=== PATIENT | female | born 1960 | race Caucasian/White ===

== ENCOUNTER 2018-11-22 13:18 | Emergency (ER) | payer OTHER, SELFPAY ==
--- OUTSIDE RECORDS SUMMARY | 2018-11-22 13:21 | XMS REPORT ---
:1960 [facility] Address [address] [place] [address] Dr. Larkin. [address] [place] [id number] Care Team Providers Name Role Phone Unavailable Unavailable Unavailable Problems This patient has no known problems. Allergies, Adverse Reactions, Alerts This patient has no known allergies or adverse reactions. Medications This patient has no known medications.
[2018-11-22] MEDS ORDERED: ONDANSETRON 4 MG/2 ML VIAL ONE (14:54)
[2018-11-22] MEDS ORDERED: MORPHINE 4 MG/ML SYR ONE (14:54)
[2018-11-22 15:09] LABS: Absolute Lymphocytes (CBC) 1.5 K/uL (0.7-4.9); Absolute Monocytes 0.4 K/uL (0.1-1.3); Absolute Neutrophil 4.6 K/uL (1.8-8.0); Basophils % 1.1 % (0-1.3); Eosinophils % 2.1 % (0-4.4); Hematocrit 34.8 % (36.0-45.0); MPV 7.9 fL (7.6-11.3); Monocytes % 6.3 % (3.3-12.3); RBC Red Blood Cell Count 4.08 M/uL (3.86-4.86)
--- NOTE | 2018-11-22 15:15 | ER ---
Nurse's Notes [facility] Name: Dee Maciel Age: 58 yrs Sex: Female : 1960 Arrival Date: 11/22/2018 Time: 13:23 Bed 16 Private MD: Art Pollock E Diagnosis: Dyspnea, unspecified;Unspecified cirrhosis of liver-WYNN;Type 2 diabetes mellitus;Ascites-tense;Unspecified kidney failure;Hyperkalemia Presentation: 11/22 13:27 Presenting complaint: Patient states: I usually have a paracentesis weekly but I have la1 not had one in 3 weeks because I have been in between doctors and I need some of this fluid off. Transition of care: patient was not received from another setting of care. Onset of symptoms was November 22, 2018. Risk Assessment: Do you want to hurt yourself or someone else? Patient reports no desire to harm self or others. Initial Sepsis Screen: Does the patient meet any 2 criteria? No. Patient's initial sepsis screen is negative. Does the patient have a suspected source of infection? No. Patient's initial sepsis screen is negative. Care prior to arrival: None. 13:27 Method Of Arrival: Ambulatory la1 13:27 Acuity: ASAF 3 la1 Triage Assessment: 17:44 General: Appears in no apparent distress. comfortable. General: Behavior is calm, aj1 cooperative, appropriate for age. Respiratory: the patient reports symptoms have resolved. Respiratory: Onset: The symptoms/episode began/occurred 3 WEEKS AGO. Historical: - Allergies: 13:29 No Known Allergies; la1 - PMHx: 13:29 Diabetes - NIDDM; Hypothyroidism; WYNN liver; la1 - Immunization history:: Adult Immunizations up to date. - Social history:: Smoking status: Patient/guardian denies using tobacco. - Ebola Screening: : No symptoms or risks identified at this time. - Family history:: not pertinent. Screenin:17 Abuse screen: Denies threats or abuse. Denies injuries from another. Nutritional aj1 screening: No deficits noted. Tuberculosis screening: No symptoms or risk factors identified. 17:50 Fall Risk None identified. aj1 Assessment: 14:17 General: Appears in no apparent distress. uncomfortable, Behavior is calm, cooperative, aj1 appropriate for age. Pain: Complains of pain in back and abdomen Pain currently is 4 out of 10 on a pain scale. Neuro: Level of Consciousness is awake, alert, obeys commands. Cardiovascular: Reports shortness of breath, Denies chest pain, Patient's skin is warm and dry. Edema is 3+ to left ankle, left foot, right ankle and right foot Rhythm is sinus rhythm. Respiratory: Airway is patent Respiratory effort is even, unlabored, Respiratory pattern is regular, symmetrical, Breath sounds are diminished bilaterally. GI: Abdomen is round distended, Abd is non tender X 4 quads Abd is rigid X 4 quads. Reports that she usually has a paracentesis every week but she has not been able to have one for the past 3 weeks because she doesn't have an appointment with her doctor until . : No signs and/or symptoms were reported regarding the genitourinary system. EENT: No signs and/or symptoms were reported regarding the EENT system. Derm: No signs and/or symptoms reported regarding the dermatologic system. Skin is pink, warm \T\ dry. normal. Musculoskeletal: No signs and/or symptoms reported regarding the musculoskeletal system. Circulation, motion, and sensation intact. 15:00 Reassessment: Patient is alert, oriented x 3, equal unlabored respirations, skin aa5 warm/dry/pink. Pt sitting up in bed. Bed in low position, side rails x 2, call vasquez within reach. Pt's at bedside. Pt notified of wait time for lab results. . 16:00 Reassessment: Patient appears in no apparent distress at this time. No changes from aj1 previously documented assessment. Patient and/or family updated on plan of care and expected duration. Pain level reassessed. Patient is alert, oriented x 3, equal unlabored respirations, skin warm/dry/pink. 17:00 Reassessment: Patient and/or family updated on plan of care and expected duration. Pain aj1 level reassessed. General: Appears in no apparent distress. comfortable, Behavior is calm, cooperative, appropriate for age. Pain: Denies pain. Neuro: Level of Consciousness is awake, alert, obeys commands. Cardiovascular: Patient's skin is warm and dry. Rhythm is sinus rhythm. Respiratory: Airway is patent Respiratory effort is even, unlabored, Respiratory pattern is regular, symmetrical. Derm: Skin is pink, warm \T\ dry. normal. Musculoskeletal: Circulation, motion, and sensation intact. Vital Signs: 13:29 BP 145 / 76; Pulse 85; Resp 18; Temp 98.3; Pulse Ox 98% on R/A; Weight 117.93 kg; la1 Height 5 ft. 4 in. (162.56 cm); 14:52 BP 133 / 82; Pulse 73; Resp 18 S; Pulse Ox 98% on R/A; aa5 16:00 BP 134 / 86; Pulse 75; Resp 18; Pulse Ox 97% on R/A; aj1 17:00 BP 124 / 81; Pulse 75; Resp 18; Pulse Ox 98% on R/A; aj1 13:29 Body Mass Index 44.63 (117.93 kg, 162.56 cm) la1 ED Course: 13:23 Patient arrived in ED. mr 13:24 Art Pollock MD is Private Physician. mr 13:28 Triage completed. la1 13:30 Arm band placed on right wrist. la1 13:51 Nova Morton RN is Primary Nurse. aj1 13:59 Maynor Lo MD is Attending Physician. lor 14:17 Patient has correct armband on for positive identification. Bed in low position. Call aj1 light in reach. Side rails up X 1. cafeteria monitor on. Pulse ox on. NIBP on. 14:17 No provider procedures requiring assistance completed. aj1 14:50 Initial lab(s) drawn, by me, sent to lab. Inserted saline lock: 20 gauge in right aa5 antecubital area, using aseptic technique. Blood collected. 15:[address] Lo with Naima Neely at the [facility] transfer eb Center. 15:23 connected the GI applications sales consultant for [facility] with Dr. Lo for patient transfer eb consultation. 15:[address] Anderson the retail tire sales manager applications sales consultant for [facility] with Dr. Wally whitehead for patient transfer consultation. 15:49 connected the hospitalist applications sales consultant Dr. Simmons with Dr. Lo for patient eb transfer consultation. 16:01 administrative approval given by Naima Neely RN transfer man/ pt going to 9 tower 951/ report to be called to [phone]/ Dr. Simmons. 16:18 XRAY Chest (1 view) In Process Unspecified. EDMS 17:00 Report given to ALEXI Escalante at [facility]. aj1 17:49 Patient transferred, IV remains in place. aj1 Administered Medications: 14:55 Drug: Zofran 4 mg Route: IVP; Site: right antecubital; aa5 15:03 Follow up: Response: No adverse reaction aa5 14:57 Drug: morphine 2 mg Route: IVP; Site: right antecubital; aa5 15:03 Follow up: Response: No adverse reaction aa5 16:41 Drug: Kayexalate 30 grams Route: PO; aj1 17:53 Follow up: Response: No adverse reaction aj1 Outcome: 15:14 ER care complete, transfer ordered by MD. horowitz 17:52 Transferred by ground EMS to [facility]. aj1 17:52 Condition: stable 17:52 Discharge instructions given to patient, Instructed on the need for transfer, Demonstrated understanding of instructions. 17:55 Patient left the ED. aj1 Signatures: Dispatcher [employer] Nova Clarke RN RN aj1 Maynor Lo MD MD cha Rivera, Mary mr JohanFrancisca RN RN aa5 Jhony Jaramillo RN RN Karissa Ghotra
--- NOTE | 2018-11-22 15:16 | EDPHYS ---
Physician Documentation [facility] Name: Dee Maciel Age: 58 yrs Sex: Female : 1960 Arrival Date: 11/22/2018 Time: 13:23 Bed 16 Private MD: Art Pollock E ED Physician Maynor Lo HPI: 11/22 14:41 This 58 yrs old Female presents to ER via Ambulatory with complaints of lor Breathing Difficulty, Back Pain. 14:41 The patient has shortness of breath at rest. Onset: The symptoms/episode began/occurred lor 1 week(s) ago. Duration: The symptoms are continuous, and are steadily getting worse. The patient's shortness of breath has no apparent modifying factors. Associated signs and symptoms: Pertinent positives: sob, abdominal pain. Severity of symptoms: At their worst the symptoms were moderate in the emergency department the symptoms are unchanged. The patient has experienced similar episodes in the past, multiple times. Historical: - Allergies: 13:29 No Known Allergies; la1 - PMHx: 13:29 Diabetes - NIDDM; Hypothyroidism; WYNN liver; la1 - Immunization history:: Adult Immunizations up to date. - Social history:: Smoking status: Patient/guardian denies using tobacco. - Ebola Screening: : No symptoms or risks identified at this time. - Family history:: not pertinent. ROS: 14:41 Constitutional: Negative for fever, chills, and weight loss, Eyes: Negative for injury, lor pain, redness, and discharge, ENT: Negative for injury, pain, and discharge, Neck: Negative for injury, pain, and swelling, Cardiovascular: Negative for chest pain, palpitations, and edema, Respiratory: Negative for shortness of breath, cough, wheezing, and pleuritic chest pain, Back: Negative for injury and pain, : Negative for injury, bleeding, discharge, and swelling, MS/Extremity: Negative for injury and deformity, Skin: Negative for injury, rash, and discoloration, Neuro: Negative for headache, weakness, numbness, tingling, and seizure, Psych: Negative for depression, anxiety, suicide ideation, homicidal ideation, and hallucinations, Allergy/Immunology: Negative for hives, rash, and allergies, Endocrine: Negative for neck swelling, polydipsia, polyuria, polyphagia, and marked weight changes, Hematologic/Lymphatic: Negative for swollen nodes, abnormal bleeding, and unusual bruising. 14:41 Abdomen/GI: Positive for abdominal pain, abdominal distension, of the right upper quadrant, left upper quadrant, right lower quadrant and left lower quadrant. Exam: 14:41 Constitutional: This is a well developed, well nourished patient who is awake, alert, lor and in no acute distress. Head/Face: Normocephalic, atraumatic. Eyes: Pupils equal round and reactive to light, extra-ocular motions intact. Lids and lashes normal. Conjunctiva and sclera are non-icteric and not injected. Cornea within normal limits. Periorbital areas with no swelling, redness, or edema. ENT: Nares patent. No nasal discharge, no septal abnormalities noted. Tympanic membranes are normal and external auditory canals are clear. Oropharynx with no redness, swelling, or masses, exudates, or evidence of obstruction, uvula midline. Mucous membranes moist. Neck: Trachea midline, no thyromegaly or masses palpated, and no cervical lymphadenopathy. Supple, full range of motion without nuchal rigidity, or vertebral point tenderness. No Meningismus. Chest/axilla: Normal chest wall appearance and motion. Nontender with no deformity. No lesions are appreciated. Cardiovascular: Regular rate and rhythm with a normal S1 and S2. No gallops, murmurs, or rubs. Normal PMI, no JVD. No pulse deficits. Respiratory: Lungs have equal breath sounds bilaterally, clear to auscultation and percussion. No rales, rhonchi or wheezes noted. No increased work of breathing, no retractions or nasal flaring. Back: No spinal tenderness. No costovertebral tenderness. Full range of motion. Skin: Warm, dry with normal turgor. Normal color with no rashes, no lesions, and no evidence of cellulitis. MS/ Extremity: Pulses equal, no cyanosis. Neurovascular intact. Full, normal range of motion. Neuro: Awake and alert, GCS 15, oriented to person, place, time, and situation. Cranial nerves II-XII grossly intact. Motor strength 5/5 in all extremities. Sensory grossly intact. Cerebellar exam normal. Normal gait. Psych: Awake, alert, with orientation to person, place and time. Behavior, mood, and affect are within normal limits. 14:41 Abdomen/GI: Inspection: distension, Bowel sounds: normal, Palpation: mild abdominal tenderness, in all quadrants, firm abdomen, tense ascites. Vital Signs: 13:29 BP 145 / 76; Pulse 85; Resp 18; Temp 98.3; Pulse Ox 98% on R/A; Weight 117.93 kg; la1 Height 5 ft. 4 in. (162.56 cm); 14:52 BP 133 / 82; Pulse 73; Resp 18 S; Pulse Ox 98% on R/A; aa5 16:00 BP 134 / 86; Pulse 75; Resp 18; Pulse Ox 97% on R/A; aj1 17:00 BP 124 / 81; Pulse 75; Resp 18; Pulse Ox 98% on R/A; aj1 13:29 Body Mass Index 44.63 (117.93 kg, 162.56 cm) la1 MDM: 13:59 Patient medically screened. [facility] 14:43 Data reviewed: vital signs, nurses notes, lab test result(s), EKG, radiologic studies, lor plain films. 11/22 14:38 Order name: Basic Metabolic Panel [facility] 11/22 14:38 Order name: CBC with Diff [facility] 11/22 14:38 Order name: LFT's [facility] 11/22 14:38 Order name: Magnesium [facility] 11/22 14:38 Order name: NT PRO-BNP [facility] 11/22 14:38 Order name: PT-INR [facility] 11/22 14:38 Order name: Troponin (emerg Dept Use Only) [facility] 11/22 14:38 Order name: Lipase [facility] 11/22 14:38 Order name: AMMONIA [facility] 11/22 15:13 Order name: CBC with Automated Diff; Complete Time: 15:29 EDND 11/22 15:21 Order name: Ammonia; Complete Time: 15:29 EDND 11/22 15:24 Order name: Protime (+INR); Complete Time: 15:29 EDND 11/22 15:42 Order name: Basic Metabolic Panel; Complete Time: 15:48 EDND 11/22 14:38 Order name: XRAY Chest (1 view) [facility] 11/22 14:38 Order name: EKG; Complete Time: 14:39 [facility] 11/22 14:38 Order name: Cardiac monitoring; Complete Time: 14:43 [facility] 11/22 14:38 Order name: EKG - Nurse/Tech; Complete Time: 15:47 [facility] 11/22 14:38 Order name: IV Saline Lock; Complete Time: 15:00 [facility] 11/22 14:38 Order name: Labs collected and sent; Complete Time: 15:00 [facility] 11/22 14:38 Order name: O2 Per Protocol; Complete Time: 14:43 [facility] 11/22 14:38 Order name: O2 Sat Monitoring; Complete Time: 14:43 [facility] 11/22 15:42 Order name: Liver (Hepatic) Function; Complete Time: 15:48 EDND 11/22 15:42 Order name: Troponin (Emerg Dept Use Only); Complete Time: 15:48 EDMS 11/22 15:42 Order name: NT PRO-BNP; Complete Time: 15:48 EDMS 11/22 15:42 Order name: Magnesium; Complete Time: 15:48 EDND 11/22 15:42 Order name: Lipase; Complete Time: 15:48 EDMS Administered Medications: 14:55 Drug: Zofran 4 mg Route: IVP; Site: right antecubital; aa5 15:03 Follow up: Response: No adverse reaction aa5 14:57 Drug: morphine 2 mg Route: IVP; Site: right antecubital; aa5 15:03 Follow up: Response: No adverse reaction aa5 16:41 Drug: Kayexalate 30 grams Route: PO; aj1 17:53 Follow up: Response: No adverse reaction aj1 Disposition: 11/22/18 15:14 Transfer ordered to [facility]. Diagnosis are Dyspnea, unspecified, Unspecified cirrhosis of liver - WYNN, Type 2 diabetes mellitus, Ascites - tense, Unspecified kidney failure, Hyperkalemia. - Reason for transfer: Higher level of care. - Accepting physician is to [facility]. - Condition is Fair. - Problem is new. - Symptoms have worsened. Signatures: Dispatcher [employer] EDMS Nova Morton RN RN aj1 Maynor Lo MD MD cha Calderon, Audri RN RN aa5 Jhony Jaramillo RN RN la1 Corrections: (The following items were deleted from the chart) 15:52 15:14 11/22/2018 15:14 Transfer ordered to [facility]. Diagnosis is [facility] Dyspnea, unspecified; Unspecified cirrhosis of liver - WYNN; Type 2 diabetes mellitus; Ascites - tense. Reason for transfer: Higher level of care. Accepting physician is to [facility]. Condition is Fair. Problem is new. Symptoms have worsened. lor 17:55 15:52 11/22/2018 15:14 Transfer ordered to [facility]. Diagnosis is aj1 Dyspnea, unspecified; Unspecified cirrhosis of liver - WYNN; Type 2 diabetes mellitus; Ascites - tense; Unspecified kidney failure; Hyperkalemia. Reason for transfer: Higher level of care. Accepting physician is to [facility]. Condition is Fair. Problem is new. Symptoms have worsened. lor
[2018-11-22 15:19] LABS: Protime INR 0.92
[2018-11-22 15:27] LABS: ALT/SGPT 24 U/L (12-78); AST/SGOT 26 U/L (15-37); Albumin 2.7 g/dL (3.4-5.0); Alkaline Phosphatase 130 U/L (45-117); BUN Blood Urea Nitrogen 47 mg/dL (7-18); Bicarbonate 26 mmol/L (21-32); Bilirubin Direct 0.2 mg/dL (0-0.2); Bilirubin Total 0.5 mg/dL (0.2-1.0); Glucose Level 266 mg/dL (74-106); Lipase 390 U/L (73-393); Magnesium 2.2 mg/dL (1.8-2.4); NT PRO-BNP 244 pg/mL (<125); Potassium 5.5 mmol/L (3.5-5.1); Sodium Level 131 mmol/L (136-145); Troponin (Emerg Dept Use Only) < 0.02 ng/mL (0.0-0.045)
--- NOTE | 2018-11-22 16:48 | RAD REPORT ---
EXAM DESCRIPTION: Trish Single View11/22/2018 4:01 pm CLINICAL HISTORY: Abd pain COMPARISON: 2017 FINDINGS: The lungs appear clear of acute infiltrate. The heart is normal size. Elevation of the right hemidiaphragm is unchanged
[2018-11-22] MEDS ORDERED: SOD POLYSTYREN SUL 15 GM/60 ML UCUP PO SCH (17:00)
--- NOTE | 2018-11-23 11:24 | EKG ---
Test Date: 2018-11-22 Test Time: 15:49:27 Chief Accounting Officer: RAFAEL MEASUREMENT RESULTS: Intervals: Rate: 71 NC: 178 QRSD: 74 QT: 392 QTc: 425 [place]: P: 18 NC: 178 QRS: -67 T: 2 INTERPRETIVE STATEMENTS: Normal sinus rhythm Left axis deviation Low voltage QRS Possible Anterolateral infarct, age undetermined Abnormal ECG Compared to ECG 03/14/2017 22:00:51 Left-axis deviation now present Myocardial infarct finding still present Electronically Signed On 11-23-18 11:23:38 STONE FINISHER by Austin Kerr
== END 2018-11-22 17:55 | disposition short-term general hospital (02) ==
LOC: ER 13:18
DX: K74.60 Unspecified cirrhosis of liver (principal); R18.8 Other ascites; N19 Unspecified kidney failure; E87.5 Hyperkalemia; E11.9 Type 2 diabetes mellitus without complications
CPT/HCPCS: 36415; 71045; 80048; 80076; 82140; 83690; 83735; 83880; 84484; 85025; 85610; 93005; J2405

== ENCOUNTER 2018-12-05 06:08 | Emergency (ER) | payer OTHER ==
--- OUTSIDE RECORDS SUMMARY | 2018-12-05 06:11 | XMS REPORT | Clinical Summary ---
:[address] [facility] [place], [place] Address [address] [place] [address] Care Team Providers Name Role Phone Unavailable Primary Care Provider Unavailable Allergies No Known Allergies Medications Medication Sig Dispensed Refills Start Date End Date Status levothyroxine Take 1 tablet 30 tablet 1 11/25/2018 11/25/2019 Active (SYNTHROID, LEVOTHROID) (200 mcg total) 200 MCG tablet by mouth Every morning on an empty stomach. furosemide (LASIX) 40 Take 1.5 45 tablet 1 11/24/2018 11/24/2019 Active MG tablet tablets (60 mg total) by mouth daily. spironolactone Take 1 tablet 30 tablet 1 11/24/2018 11/24/2019 Active (ALDACTONE) 100 MG (100 mg total) tablet by mouth daily. Active Problems Problem Noted Date Liver cirrhosis secondary to WYNN 11/24/2018 Ascites 11/22/2018 HEMALATHA (acute kidney injury) 11/22/2018 Encounters Date Type Specialty Care Team Description 11/23/2018 Orders Only General Internal Medicine 11/23/2018 Travel 11/22/2018 - Hospital Encounter General Internal HEMALATHA Simmons ( acute kidney injury) (HCC); 11/24/2018 Medicine MD Esme Other ascites; Amy Villanuevaannan Liver cirrhosis secondary to WYNN (HCC); MD Andrea Morbid obesity (HCC); Destiney Esqueda Hepatorenal syndrome (HCC); MD Abebe Hyperkalemia; Portal hypertension (HCC); CKD (chronic kidney disease) stage 4, GFR 15-29 ml/min (HCC); Secondary esophageal varices without bleeding (HCC); Diabetes mellitus type 2 in obese (HCC) after 12/04/2017 Immunizations Name Dates Previously Given Next Due Hepatitis B Adult IM 11/24/2018 Influenza Four-QIV Non-PF 5+ YR 11/24/2018, 11/23/2018 (Deferred: Other - will go to procedure.will prefer tomorrow.) Family History Medical History Relation Name Comments Hypertension Father Relation Name Status Comments Father Social History Tobacco Use Types Packs/Day Years Used Date Never Smoker Sex Assigned at Date Recorded Not on file Job Start Date Occupation Industry Not on file Not on file Not on file Travel History Travel Start Travel End No recent travel history available. Last Filed Vital Signs Vital Sign Reading Time Taken Blood Pressure 100/50 11/24/2018 11:07 AM [facility] Pulse 85 11/24/2018 11:07 AM [facility] [employer] Temperature 36.3 C (97.3 F) 11/24/2018 11:07 AM [facility] Respiratory Rate 19 11/24/2018 11:07 AM [facility] Oxygen Saturation 93% 11/24/2018 11:07 AM [employer] [employer] Inhaled Oxygen Concentration 21% 11/24/2018 2:46 AM [facility] Weight 108.5 kg (239 lb 4.8 oz) 11/24/2018 7:00 AM [employer] [employer] Height 162.6 cm (5' 4") 11/22/2018 7:09 PM [facility] [employer] Body Mass Index 41.08 11/24/2018 7:00 AM [facility] Plan of Treatment Not on file Procedures Procedure Name Priority Date/Time Associated Comments Diagnosis POCT-GLUCOSE METER Routine 11/24/2018 7:49 Results for this AM [facility] [employer] procedure are in the results section. CBC W/PLT COUNT & AUTO Routine 11/24/2018 4:27 Results for this DIFFERENTIAL AM [employer] procedure are in the results section. OSMOLALITY, SERUM Routine 11/24/2018 4:27 Results for this AM [employer] procedure are in the results section. PHOSPHORUS Routine 11/24/2018 4:27 Results for this AM [employer] procedure are in the results section. MAGNESIUM Routine 11/24/2018 4:27 Results for this AM [employer] procedure are in the results section. CALCIUM, IONIZED Routine 11/24/2018 4:27 Results for this AM [employer] procedure are in the results section. CBC W/PLT COUNT & AUTO Routine 11/24/2018 4:27 Results for this DIFFERENTIAL AM [employer] procedure are in the results section. COMPREHENSIVE Routine 11/24/2018 4:27 Results for this METABOLIC PANEL AM [employer] procedure are in the results section. US RENAL COMPLETE Routine 11/24/2018 3:20 Results for this AM [employer] procedure are in the results section. TROPONIN I Routine 11/23/2018 9:41 Results for this PM [employer] procedure are in the results section. ECG 12-LEAD Routine 11/23/2018 9:19 PM [facility] Procedure Note - Interface, External Ris In - 11/23/2018 9:22 PM [facility] Ventricular Rate 77 BPM Atrial Rate 77 BPM P-R Interval 172 ms QRS Duration 80 ms Q-T Interval 392 ms QTC Calculation(Bazett) 443 ms P [place] 44 degrees R [place] -47 degrees T [place] 50 degrees Normal sinus rhythm Left axis deviation Low voltage QRS Cannot rule out Anterior infarct , age undetermined Abnormal ECG No previous ECGs available ECG 12-LEAD STAT 11/23/2018 9:19 PM [facility] POCT-GLUCOSE METER Routine 11/23/2018 8:44 PM [employer] SODIUM, RANDOM URINE Routine 11/23/2018 7:01 PM [employer] PROTEIN, RANDOM URINE Routine 11/23/2018 7:01 PM [employer] POCT-GLUCOSE METER Routine 11/23/2018 5:17 PM [employer] POCT-GLUCOSE METER Routine 11/23/2018 2:01 PM [employer] US ABDOMEN LIMITED Routine 11/23/2018 1:05 PM [employer] US PARACENTESIS Routine 11/23/2018 12:48 PM [employer] [employer] URINALYSIS W/ MICROSCOPIC Routine 11/23/2018 10:58 AM [employer] [employer] CBC W/PLT COUNT & AUTO Routine 11/23/2018 8:40 AM [facility] [employer] Results for this DIFFERENTIAL procedure are in the results section. CBC W/PLT COUNT & AUTO Routine 11/23/2018 8:40 AM [facility] [employer] Results for this DIFFERENTIAL procedure are in the results section. POCT-GLUCOSE METER Routine 11/23/2018 7:02 AM [employer] [employer] ALPHA FETOPROTEIN (AFP), Routine 11/23/2018 4:53 AM [facility] Results for this TUMOR MARKER procedure are in the results section. HEPATITIS A PANEL Routine 11/23/2018 4:53 AM [employer] HEPATITIS B PANEL Routine 11/23/2018 4:53 AM [employer] HEPATITIS C ANTIBODY Routine 11/23/2018 4:53 AM [employer] [employer] ACTIN (SMOOTH MUSCLE) Routine 11/23/2018 4:53 AM [employer] [employer] Results for this ANTIBODY, IGG procedure are in the results section. ANTI-MITOCHONDRIAL AB, Routine 11/23/2018 4:53 AM [employer] REFLEX TO TITER [id number]\\, SERUM Routine 11/23/2018 4:53 AM [facility] [employer] CERULOPLASMIN Routine 11/23/2018 4:53 AM [employer] [employer] FERRITIN Routine 11/23/2018 4:53 AM [employer] [employer] IRON, TIBC, % SAT. (WITHOUT Routine 11/23/2018 4:53 AM [employer] [employer] Results for this FERRITIN) procedure are in the results section. COMPREHENSIVE METABOLIC Routine 11/23/2018 4:53 AM [employer] [employer] Results for this PANEL procedure are in the results section. PT/APTT Routine 11/22/2018 11:31 PM [employer] COMPREHENSIVE METABOLIC Routine 11/22/2018 11:31 PM [employer] [employer] Results for this PANEL procedure are in the results section. POCT-GLUCOSE METER Routine 11/22/2018 8:52 PM [employer] [employer] after 12/04/2017 Results POC-Glucose meter (11/24/2018 7:49 AM [employer] [employer])Only the most recent of6 resultswithin the time period is included. POC-Glucose Meter 243 (H)Comment: TESTED AT 70 - 110 mg/dL [facility] [address] [place] [id number] Specimen Blood Performing Organization Address [facility] Cent[facility]ode Phone Number [address] [address] CENTER Calcium, Ionized (11/24/2018 4:27 AM [facility] [employer]) Calcium, Ion 1.06 (L) 1.12 - 1.27 mmol/L [facility] pH, Blood 7.41 [facility] Specimen Blood Performing Organization Address City/[facility] Cent[facility]ode Phone Number [address] [place] [address] CENTER CBC with platelet count + automated diff (11/24/2018 4:27 AM [employer])Only the most recent of2 resultswithin the time period is included. WBC 5.7 3.5 - 10.5 K/L [facility] RBC 3.76 (L) 3.93 - 5.22 M/L [facility] Hemoglobin 10.6 (L) 11.2 - 15.7 GM/DL [facility] Hematocrit 32.9 (L) 34.1 - 44.9 % [facility] MCV 87.5 79.4 - 94.8 fL [facility] MCH 28.2 25.6 - 32.2 pg [facility] MCHC 32.2 32.2 - 35.5 GM/DL [facility] RDW 14.2 11.7 - 14.4 % [facility] Platelets 142 (L) 150 - 450 K/CU MM [facility] MPV 9.8 9.4 - 12.3 fL [facility] nRBC 0 0 - 0 /100 WBC [facility] % Neutros 70 % [facility] % Lymphs 19 % [facility] % Monos 7 % [facility] % Eos 3 % [facility] % Baso 1 % [facility] # Neutros 3.99 1.56 - 6.13 K/L [facility] # Lymphs 1.05 (L) 1.18 - 3.74 K/L [facility] # Monos 0.40 (H) 0.24 - 0.36 K/L [facility] # Eos 0.16 0.04 - 0.36 K/L [facility] # Baso 0.04 0.01 - 0.08 K/L [facility] Immature Granulocytes-Relative 0 0 - 1 % [facility] Specimen Blood Performing Organization Address City/[facility] Cent[facility]ode Phone Number [address] [address] [place] Phosphorus (11/24/2018 4:27 AM [employer]) Phosphorus 3.6 2.3 - 4.7 mg/dL [facility] Specimen Blood Performing Organization Address [facility]cond Phone Number [address] [address] [place] Osmolality, serum (11/24/2018 4:27 AM [employer]) Osmolality Serum 301 (H) 275 - 295 mOsm/kg [facility] Specimen Blood Performing Organization Address [facility] Phone Number [address] [address] [phone] [place] Magnesium (11/24/2018 4:27 AM [employer]) Magnesium 2.0 1.6 - 2.6 mg/dL [facility] Specimen Blood Performing Organization Address [facility] Phone Number [address] [address] [place] Comprehensive metabolic panel (11/24/2018 4:27 AM [employer])Only the most recent of3 resultswithin the time period is included. Protein, Total 5.5 (L) 6.0 - 8.3 gm/dL [facility] Albumin 3.2 (L) 3.5 - 5.0 g/dL [facility] Alkaline Phosphatase 75 40 - 150 U/L [facility] Total Bilirubin 0.9 0.2 - 1.2 mg/dL [facility] Sodium 132 (L) 136 - 145 meq/L [facility] Potassium 4.3 3.5 - 5.1 meq/L [facility] Chloride 101 98 - 107 meq/L [facility] CO2 25 22 - 29 meq/L [facility] BUN 45 (H) 7 - 21 mg/dL [facility] Creatinine 1.89 (H) 0.57 - 1.25 mg/dL [facility] Glucose 241 (H) 70 - 105 mg/dL [facility] Calcium 8.6 8.4 - 10.2 mg/dL [facility] AST 19 5 - 34 U/L [facility] ALT 10 6 - 55 U/L [facility] EGFR 27Comment: ESTIMATED GFR mL/min/1.73 sq m [facility] IS NOT ACCURATE [facility] CREATININE CLEARANCE IN PREDICTING GLOMERULAR FILTRATION RATE. ESTIMATED GFR IS NOT APPLICABLE FOR DIALYSIS PATIENTS. Specimen Blood Performing Organization Address City/State/Zipcode Phone Number [facility] [address] [place] [address] CENTER renal complete (11/24/2018 3:20 AM [employer]) Narrative Performed At FINAL REPORT [facility] U/S, RENAL, COMPLETE CLINICAL INDICATION:HEMALATHA/CKD COMPARISON: None TECHNIQUE:The kidneys and urinary bladder were evaluated using real time cuevas scale and color Doppler sonography. FINDINGS: Right kidney: Size: 11.1 x 3.6 x 4.9 cm. Parenchyma: Normal echogenicity. No cysts. No stones. Hydronephrosis: None. Left kidney: Size: 11.8 x 3.9 x 4.7 cm. Parenchyma: Normal echogenicity. No cysts. No stones. Hydronephrosis: None. Renal Vasculature: Doppler interrogation reveals preserved vascular flow in the main renal arteries and veins bilaterally. Urinary bladder: Not identified. Additional findings: Small volume intra-abdominal ascites. IMPRESSION: Unremarkable renal ultrasound. Bladder is not visualized. Small volume intra-abdominal ascites. Signed: Anurag Wilson MD Report Verified Date/Time:11/24/2018 03:59:04 Reading Location: [address] Transitional Reading Room Procedure Note Interface, External Ris In - 11/24/2018 4:01 AM [employer] FINAL REPORT U/S, RENAL, COMPLETE CLINICAL INDICATION: HEMALATHA/CKD COMPARISON: None TECHNIQUE: The kidneys and urinary bladder were evaluated using real time cuevas scale and color Doppler sonography. FINDINGS: Right kidney: Size: 11.1 x 3.6 x 4.9 cm. Parenchyma: Normal echogenicity. No cysts. No stones. Hydronephrosis: None. Left kidney: Size: 11.8 x 3.9 x 4.7 cm. Parenchyma: Normal echogenicity. No cysts. No stones. Hydronephrosis: None. Renal Vasculature: Doppler interrogation reveals preserved vascular flow in the main renal arteries and veins bilaterally. Urinary bladder: Not identified. Additional findings: Small volume intra-abdominal ascites. IMPRESSION: Unremarkable renal ultrasound. Bladder is not visualized. Small volume intra-abdominal ascites. Signed: Anurag Wilson MD Report Verified Date/Time: 11/24/2018 03:59:04 Reading Location: [address] Transitional Reading Room Performing Organization Address [facility] Phone Number [facility] Troponin I (11/23/2018 9:41 PM [employer] [employer]) Troponin I <0.01 0.00 - 0.03 ng/mL [facility] Specimen Blood Narrative Performed At Troponin I (TnI) levels must be interpreted [facility] in the context of the presenting symptoms and the clinical findings. Elevated TnI levels indicate myocardial damage, but are not specific for ischemic heart disease. Elevated TnI levels are seen in patients with other cardiac conditions (including myocarditis and congestive heart failure), and slight TnI elevations occur in patients with other conditions, including sepsis, renal failure, acidosis, acute neurological disease, and persistent tachyarrhythmia. Performing Organization Address [facility] Phone Number [address] [address] [phone] CENTER ECG 12 lead (11/23/2018 9:19 PM [employer]) Narrative Performed At Ventricular Rate 77 BPM GE MUSE Atrial Rate 77 BPM P-R Interval 172 ms QRS Duration 80 ms Q-T Interval 392 ms QTC Calculation(Bazett) 443 ms P [place] 44 degrees R [place] -47 degrees T [place] 50 degrees Normal sinus rhythm Left axis deviation Low voltage QRS Cannot rule out Anterior infarct , age undetermined Abnormal ECG No previous ECGs available Confirmed by MD TRAMMELL JOSEPH P ([id number]) on 11/24/2018 6:45:48 AM Procedure Note Interface, External Ris In - 11/24/2018 6:45 AM [employer] Ventricular Rate 77 BPM Atrial Rate 77 BPM P-R Interval 172 ms QRS Duration 80 ms Q-T Interval 392 ms QTC Calculation(Bazett) 443 ms P [place] 44 degrees R [place] -47 degrees T [place] 50 degrees Normal sinus rhythm Left axis deviation Low voltage QRS Cannot rule out Anterior infarct , age undetermined Abnormal ECG No previous ECGs available Confirmed by MD TRAMMELL JOSEPH P ([id number]) on 11/24/2018 6:45:48 AM Performing Organization Address [facility] Phone Number GE MUSE Sodium, random urine (11/23/2018 7:01 PM [employer]) Sodium Urine <20 meq/L [facility] Specimen Urine Narrative Performed At Reference Range: No Normals [facility] Performing Organization Address [facility] Phone Number [address] [address] [phone] [place] Protein, random urine (11/23/2018 7:01 PM [employer]) Protein, Urine 10 0 - 14 mg/dL [facility] Specimen Urine Performing Organization Address [facility] Phone Number [address] [address] CENTER US abdomen limited (11/23/2018 1:05 PM [employer]) Narrative Performed At FINAL REPORT GE RIS ULTRASOUND RIGHT UPPER QUADRANT OF THE ABDOMEN HISTORY: Cirrhosis COMPARISON: No comparison abdominal imaging TECHNIQUE: Real-time ultrasound of the right upper quadrant of the abdomen was performed. FINDINGS: Sonographic windows are limited by patient body habitus and interfering bowel gas. The liver is demonstrates coarse echogenicity and a nodular surface suggestive of underlying cirrhosis. No definite hepatic mass lesion was identified. Hepatic length is 13.5 cm. The gallbladder demonstrates normal wall thickness with no pericholecystic fluid. No sonographic Stewart sign was elicited. No gallstones. The common bile duct is normal in caliber, measuring 4 mm. The main portal vein is normal in caliber, measuring 9mm. The pancreas was obscured. Mild to moderate ascites. Trace right pleural effusion. The right kidney is normal in size, contour, and echogenicity. The right kidney measures 10.7 cm in length.No hydronephrosis, mass lesion or stones are visualized. There was limited visualization of the inferior vena cava, hepatic veins, and abdominal aorta due to patient body habitus and overlying bowel gas. IMPRESSION: 1. Cirrhosis. No mass lesion was identified. 2. Ascites. 3. Limited visualization of the deep structures of the abdomen. Signed: Dilip Valles MD Report Verified Date/Time:11/23/2018 13:29:13 Reading Location: [address] Transitional Reading Room Procedure Note Interface, External Ris In - 11/23/2018 1:31 PM [employer] FINAL REPORT ULTRASOUND RIGHT UPPER QUADRANT OF THE ABDOMEN HISTORY: Cirrhosis COMPARISON: No comparison abdominal imaging TECHNIQUE: Real-time ultrasound of the right upper quadrant of the abdomen was performed. FINDINGS: Sonographic windows are limited by patient body habitus and interfering bowel gas. The liver is demonstrates coarse echogenicity and a nodular surface suggestive of underlying cirrhosis. No definite hepatic mass lesion was identified. Hepatic length is 13.5 cm. The gallbladder demonstrates normal wall thickness with no pericholecystic fluid. No sonographic Stewart sign was elicited. No gallstones. The common bile duct is normal in caliber, measuring 4 mm. The main portal vein is normal in caliber, measuring 9 mm. The pancreas was obscured. Mild to moderate ascites. Trace right pleural effusion. The right kidney is normal in size, contour, and echogenicity. The right kidney measures 10.7 cm in length. No hydronephrosis, mass lesion or stones are visualized. There was limited visualization of the inferior vena cava, hepatic veins, and abdominal aorta due to patient body habitus and overlying bowel gas. IMPRESSION: 1. Cirrhosis. No mass lesion was identified. 2. Ascites. 3. Limited visualization of the deep structures of the abdomen. Signed: Dilip Valles MD Report Verified Date/Time: 11/23/2018 13:29:13 Reading Location: [place] [id number] Transitional Reading Room Performing Organization Address City/State/Zipcode Phone Number [facility] US paracentesis (11/23/2018 12:48 PM [employer]ER) Narrative Performed At FINAL REPORT [facility] Paracentesis dated 11/23/2018 Procedure: Ultrasound-guided paracentesis. Preprocedure diagnosis: Ascites Postprocedure diagnosis: Ascites Conscious sedation: None. Radiologist: Giovanni Haas M.D. Technical Assoc: None Anesthesia: 1% Xylocaine mixed with sodium bicarbonate local anesthesia. Technique: After obtaining informed consent, ultrasound-guided paracentesis was performed under usual sterile technique. Using a 5 ghanaian drainage catheter, puncture was made in the right lower quadrant abdomen. Approximately 16,200 cc of serous fluid was removed. Patient tolerated the procedure well without complication. Complication: None Graft/Implant: None Estimated Blood Loss: None Impression: Ultrasound-guided paracentesis. Signed: Giovanni Haas MD Report Verified Date/Time:11/23/2018 13:01:25 Reading Location: [facility] [id number] Ortho Consult Reading Room Procedure Note Interface, External Ris In - 11/23/2018 1:03 PM [employer] FINAL REPORT Paracentesis dated 11/23/2018 Procedure: Ultrasound-guided paracentesis. Preprocedure diagnosis: Ascites Postprocedure diagnosis: Ascites Conscious sedation: None. Radiologist: Giovanni Haas M.D. Technical Assoc: None Anesthesia: 1% Xylocaine mixed with sodium bicarbonate local anesthesia. Technique: After obtaining informed consent, ultrasound-guided paracentesis was performed under usual sterile technique. Using a 5 ghanaian drainage catheter, puncture was made in the right lower quadrant abdomen. Approximately 16,200 cc of serous fluid was removed. Patient tolerated the procedure well without complication. Complication: None Graft/Implant: None Estimated Blood Loss: None Impression: Ultrasound-guided paracentesis. Signed: Giovanni Haas MD Report Verified Date/Time: 11/23/2018 13:01:25 Reading Location: [facility] B1 [id number] Ortho Consult Reading Room Performing Organization Address City/[facility]ode Phone Number GE RIS Urinalysis w/ Microscopic (11/23/2018 10:58 AM [employer]ER) Color, UA Yellow [facility] Clarity, UA Clear [facility] Specific [place], UA 1.015 1.001 - 1.035 [facility] pH, UA 5.0 5.0 - 8.0 [facility] Protein, UA Negative Negative [facility] Glucose, UA Negative Negative [facility] Ketones, UA Negative Negative [facility] Bilirubin, UA Negative Negative [facility] Blood, UA Negative Negative [facility] Nitrite, UA Negative Negative [facility] Leukocytes, UA Negative Negative [facility] Urobilinogen, UA 0.2 0.2 - 1.0 mg/dL [facility] RBC, UA <1 /HPF [facility] WBC, UA 2 /HPF [facility] Bacteria, UA Occasional [facility] Squam Epithel, UA 19 /HPF [facility] Hyaline Casts, UA 5 /LPF [facility] Amorphous Crystals Occasional [facility] Specimen Source Urine, Clean Catch [facility] Specimen Urine - Urine, Clean Catch Performing Organization Address [facility] Centercode Phone Number [address] [address] [phone] [place] Anti-Mitochondrial Ab, reflex to titer (11/23/2018 4:53 AM [employer]ER) Scan Result [facility] Specimen Blood Narrative Performed At Performing Organization Address City/[facility] Cent[facility]ode Phone Number [facility] [place] [address] [facility] [place] [address] Iron, TIBC, % sat. (without ferritin) (11/23/2018 4:53 AM B[employer] HAND[employer]ER) Iron 46.0 40.0 - 160.0 ug/dL [facility] TIBC 269 250 - 450 ug/dL [facility] Iron % Saturation 17 (L) 20 - 55 % [facility] Specimen Blood Performing Organization Address [facility] Phone Number [address] [address] [phone] [place] Hepatitis B Panel (11/23/2018 4:53 AM B[employer]GAGE HAND[employer]ER) Hep B Core Total Ab NON-REACTIVE Nonreactive [facility] Hep B S Ab <8.0 <8.0 mIU/mL [facility] hepatitis B Surface Ag NON-REACTIVE Nonreactive [facility] Specimen Blood Performing Organization Address [facility] [facility] Phone Number [address] [address] [place] Hepatitis A Panel (11/23/2018 4:53 AM BAGGAGE HANDLER) Hep A IgM HEPATITIS A TEST NEGATIVE Nonreactive [facility] Hep A IgG Nonreactive Nonreactive [facility] Specimen Blood Performing Organization Address [facility] Phone Number [address] [address] [place] Hepatitis C antibody (11/23/2018 4:53 AM BAGGAGE HANDLER) Hepatitis C Ab NON-REACTIVE Nonreactive [facility] Specimen Blood Performing Organization Address City/[facility]/Zipcode Phone Number [place] [phone] [place] [address] CENTER Actin (Smooth Muscle) Antibody, IgG (11/23/2018 4:53 AM BAGGAGE HANDLER) Anti-Smooth Muscle Ab <20 See Note: U [facility] Comment: INCORPORATED Reference Range: <20 NEGATIVE > OR=20 POSITIVE Antibodies recognizing actin are the main component of smooth muscle antibodies associated with autoimmune liver disease. Actin antibodies are found in approximately 75% of patients with autoimmune hepatitis (AIH) type 1, approximately 65% of patients with autoimmune cholangitis, approximately 30% of patients with primary biliary cirrhosis, and approximately 2% of healthy people. High values are closely correlated with AIH type 1. Specimen Blood Narrative Performed At Performing Lab [facility] [address] [address] Gilles Moss MD, PhD, LINA Performing Organization Address [facility] Phone Number [place] [address] [place] [address] Hyhgv-3-wzmvobgslce (11/23/2018 4:53 AM BAGGAGE HANDLER) A-1 Antitrypsin 202.70 (H) 90.00 - 200.00 mg/dL [facility] Specimen Blood Performing Organization Address City/[facility]/Zipcode Phone Number [place] [address] [phone] [place] [address] CENTER Ceruloplasmin (11/23/2018 4:53 AM BAGGAGE HANDLER) Ceruloplasmin 28 18 - 53 mg/dL [facility] Comment: Adults:Males: 18-36 mg/dL Females: 18-53 mg/dL Pediatrics:Males (mg/dL)Females (mg/dL) 0-30 Days 8-25 3-28 31 Days-11 Month 15-43 1-3 [id number] 4-6 [id number] 7-9 [id number] 10-12 [id number] 13-15 [id number] 16-18 Iniju65-1945-31 The pediatric ranges are derived from the following criteria: Sacha MONACO, Juwan BARONE, Poornima J et al Pediatric reference ranges for Eiuk-5-Slpoimhalsdkj and ceruloplasmin. Clin. Chem 1997; 43:S1999 Pediatric Reference Ranges, 2nd., [place] Sachaet al. editors. [employer], [place], [place] 1997. Specimen Blood Narrative Performed At Performing Lab [facility] *[facility], [address] [place] [phone] Noe Rosario MD, PhD Performing Organization Address City/[facility] Centercode Phone Number [place] [address] INCORPORATED [address] [facility] Alpha fetoprotein (AFP), tumor marker (11/23/2018 4:53 AM BAGGAGE HANDLER) Alpha-Fetoprotein 2.1 <10.0 ng/mL [facility] Specimen Blood Performing Organization Address City/[facility]/Zipcode Phone Number [address] [address] CENTER Ferritin (11/23/2018 4:53 AM BAGGAGE HANDLER) Ferritin 52 5 - 275 ng/mL [facility] Specimen Blood Performing Organization Address City/[facility]/Zipcode Phone Number [address] [address] CENTER PT/aPTT (11/22/2018 11:31 PM BAGGAGE HANDLER) Protime 13.3 11.7 - 14.7 seconds [facility] INR 1.0 <=5.9 [facility] PTT 26.9 22.5 - 36.0 seconds [facility] Specimen Blood Narrative Performed At RECOMMENDED COUMADIN/WARFARIN INR THERAPY [facility] RANGES STANDARD DOSE: 2.0 - 3.0 Includes: PROPHYLAXIS for venous thrombosis, systemic embolization; TREATMENT for venous thrombosis and/or pulmonary embolus. HIGH RISK: Target INR is 2.5-3.5 for patients with mechanical heart valves. Performing Organization Address City/State/Zipcode Phone Number [facility] [address] [place] [address] [phone] CENTER after 12/04/2017 Insurance Payer Benefit Plan / Group Subscriber ID Type Phone Address ANISA SHELL xxxxxxxxxxx Advance Directives For more information, please contact:[facility] CenterTapcentive, Inc.[facility] ChildrenZqukmz[address] [place], [place] [phone] Code Status Date Activated Date Inactivated Comments Full Code 11/22/2018 10:01 PM This code status was determined by: Patient
--- OUTSIDE RECORDS SUMMARY | 2018-12-05 06:11 | XMS REPORT ---
:1960 Author Organization [facility] Address [address] [place] [address] Dr. Melton [address] [place] [address] Care Team Providers Name Role Phone ZEB CASEY Unavailable Unavailable Problems This patient has no known problems. Allergies, Adverse Reactions, Alerts This patient has no known allergies or adverse reactions. Medications This patient has no known medications. Results Test Description Test Time Test Comments Text Results Atomic Results Result Comments ANTI-MITOCHONDRIAL AB, REFLEX TO TITER 2018-11-27 08:36:00 Test Item Value Reference Range Comments SCAN RESULT (test nyxx=[id number]) OSMOLALITY, [id number] 10:30:00 Test Item Value Reference Range Comments OSMOLALITY, SERUM (BEAKER) (test bjdi=054) 301 mOsm/kg 275-295 POCT-GLUCOSE [id number] 08:26:00 Test Item Value Reference Range Comments POC-GLUCOSE METER (BEAKER) 243 mg/dL 70-110 TESTED AT [facility] [address] [place] [address] (test xndc=6188) [facility] [address] COMPREHENSIVE METABOLIC [id number] 08:05:00 Test Item Value Reference Range Comments TOTAL PROTEIN (BEAKER) 5.5 gm/dL 6.0-8.3 (test xfxw=297) ALBUMIN (BEAKER) (test 3.2 g/dL 3.5-5.0 xefa=2624) ALKALINE PHOSPHATASE 75 U/L 40-150 (BEAKER) (test jpyw=428) BILIRUBIN TOTAL (BEAKER) 0.9 mg/dL 0.2-1.2 (test uxon=088) SODIUM (BEAKER) (test 132 meq/L 136-145 loeg=184) POTASSIUM (BEAKER) (test 4.3 meq/L 3.5-5.1 ywyb=399) CHLORIDE (BEAKER) (test 101 meq/L 98-107 uvzc=661) CO2 (BEAKER) (test 25 meq/L 22-29 egty=450) BLOOD UREA NITROGEN 45 mg/dL 7-21 (BEAKER) (test zgth=925) CREATININE (BEAKER) (test 1.89 mg/dL 0.57-1.25 fntz=237) GLUCOSE RANDOM (BEAKER) 241 mg/dL 70-105 (test grki=640) CALCIUM (BEAKER) (test 8.6 mg/dL 8.4-10.2 vqjj=656) AST (SGOT) (BEAKER) (test 19 U/L 5-34 hoqw=366) ALT (SGPT) (BEAKER) (test 10 U/L 6-55 mjwt=276) EGFR (BEAKER) (test 27 mL/min/1.73 sq m ESTIMATED GFR IS NOT vnxe=5074) ACCURATE CREATININE CLEARANCE IN PREDICTING GLOMERULAR FILTRATION RATE. ESTIMATED GFR IS NOT APPLICABLE FOR DIALYSIS PATIENTS. [id number] 08:02:00 Test Item Value Reference Range Comments PHOSPHORUS (BEAKER) (test iujy=033) 3.6 mg/dL 2.3-4.7 [id number] 08:02:00 Test Item Value Reference Range Comments MAGNESIUM (BEAKER) (test abiq=116) 2.0 mg/dL 1.6-2.6 CBC W/PLT COUNT & AUTO [id number] 05:40:00 Test Item Value Reference Range Comments WHITE BLOOD CELL COUNT (BEAKER) (test guup=428) 5.7 K/ L 3.5-10.5 RED BLOOD CELL COUNT (BEAKER) (test bpye=733) 3.76 M/ L 3.93-5.22 HEMOGLOBIN (BEAKER) (test ixrh=792) 10.6 GM/DL 11.2-15.7 HEMATOCRIT (BEAKER) (test laha=521) 32.9 % 34.1-44.9 MEAN CORPUSCULAR VOLUME (BEAKER) (test qkhj=710) 87.5 fL 79.4-94.8 MEAN CORPUSCULAR HEMOGLOBIN (BEAKER) (test 28.2 pg 25.6-32.2 soet=756) MEAN CORPUSCULAR HEMOGLOBIN CONC (BEAKER) (test 32.2 GM/DL 32.2-35.5 rvzm=116) RED CELL DISTRIBUTION WIDTH (BEAKER) (test 14.2 % 11.7-14.4 sffv=316) PLATELET COUNT (BEAKER) (test naij=331) 142 K/CU MM 150-450 MEAN PLATELET VOLUME (BEAKER) (test yiuh=596) 9.8 fL 9.4-12.3 NUCLEATED RED BLOOD CELLS (BEAKER) (test 0 /100 WBC 0-0 kvsb=294) NEUTROPHILS RELATIVE PERCENT (BEAKER) (test 70 % azwb=059) LYMPHOCYTES RELATIVE PERCENT (BEAKER) (test 19 % uzid=760) MONOCYTES RELATIVE PERCENT (BEAKER) (test 7 % npyq=652) EOSINOPHILS RELATIVE PERCENT (BEAKER) (test 3 % mjdr=227) BASOPHILS RELATIVE PERCENT (BEAKER) (test 1 % agzs=831) NEUTROPHILS ABSOLUTE COUNT (BEAKER) (test 3.99 K/ L 1.56-6.13 erqs=920) LYMPHOCYTES ABSOLUTE COUNT (BEAKER) (test 1.05 K/ L 1.18-3.74 pvxs=105) MONOCYTES ABSOLUTE COUNT (BEAKER) (test 0.40 K/ L 0.24-0.36 auth=204) EOSINOPHILS ABSOLUTE COUNT (BEAKER) (test 0.16 K/ L 0.04-0.36 ifyl=673) BASOPHILS ABSOLUTE COUNT (BEAKER) (test 0.04 K/ L 0.01-0.08 kedc=415) IMMATURE GRANULOCYTES-RELATIVE PERCENT (BEAKER) 0 % 0-1 (test rbek=2298) CALCIUM, [id number] 05:17:00 Test Item Value Reference Range Comments CALCIUM IONIZED (BEAKER) (test xsus=597) 1.06 mmol/L 1.12-1.27 PH, BLOOD (BEAKER) (test grxp=6698) 7.41 U/S, RENAL, [id number] 03:59:00Reason for exam:->HEMALATHA/CKDShould this be performed at the bedside?->YesFINAL REPORT U/S, RENAL, COMPLETE CLINICAL INDICATION: HEMALATHA/CKD COMPARISON: None TECHNIQUE: The kidneys and urinary bladder were evaluated using real time cuevas scale and color Doppler sonography. FINDINGS:Right kidney: Size: 11.1 x 3.6 x 4.9 [...] Small volume intra-abdominal ascites. Signed: Anurag Wilson Verified Date/Time: 11/24/2018 03:59:04 Reading Location: [facility] C013 Transitional Reading Room TROPONIN [id number] 23:19:00 Test Item Value Reference Range Comments TROPONIN I (BEAKER) (test sgpw=191) < ng/mL 0.00-0.03 Troponin I (TnI) levels must be interpreted in the context of the presenting symptoms and the clinical findings. Elevated TnI levels indicate myocardial damage, but are not specific for ischemic heart disease. Elevated TnI levels are seen in patients with other cardiac conditions (including myocarditis and congestive heart failure), and slight TnI elevations occur in patients with other conditions, including sepsis, renal failure, acidosis, acute neurological disease, and persistent tachyarrhythmia.POCT-GLUCOSE [id number] 21:12:00 Test Item Value Reference Range Comments POC-GLUCOSE METER (BEAKER) 277 mg/dL 70-110 TESTED AT [address] (test zjdj=0920) [facility] [address] PROTEIN, RANDOM [id number] 20:11:00 Test Item Value Reference Range Comments PROTEIN, URINE (BEAKER) (test tuvk=8704) 10 mg/dL 0-14 SODIUM, RANDOM [id number] 20:05:00 Test Item Value Reference Range Comments SODIUM URINE (BEAKER) (test xzxw=239) < meq/L Reference Range: No NormalsPOCT-GLUCOSE [id number] 17:28:00 Test Item Value Reference Range Comments POC-GLUCOSE METER (BEAKER) 291 mg/dL 70-110 TESTED AT [address] (test gsyy=0134) [facility] [address] POCT-GLUCOSE [id number] 14:02:00 Test Item Value Reference Range Comments POC-GLUCOSE METER (BEAKER) 148 mg/dL 70-110 TESTED AT [facility] [address] [facility] (test sddb=9916) [facility] [address] URINALYSIS W/ [id number] 13:32:00 Test Item Value Reference Range Comments COLOR (BEAKER) (test hyto=723) Yellow CLARITY (BEAKER) (test glzw=411) Clear SPECIFIC GRAVITY UA (BEAKER) (test 1.015 1.001-1.035 srlv=660) PH UA (BEAKER) (test ppsw=532) 5.0 5.0-8.0 PROTEIN UA (BEAKER) (test ohuj=656) Negative Negative GLUCOSE UA (BEAKER) (test obzl=513) Negative Negative KETONES UA (BEAKER) (test drdu=227) Negative Negative BILIRUBIN UA (BEAKER) (test hgkj=129) Negative Negative BLOOD UA (BEAKER) (test ulhn=206) Negative Negative NITRITE UA (BEAKER) (test dyra=085) Negative Negative LEUKOCYTE ESTERASE UA (BEAKER) (test Negative Negative cafh=745) UROBILINOGEN UA (BEAKER) (test elnj=461) 0.2 mg/dL 0.2-1.0 RBC UA (BEAKER) (test kvyv=305) < /HPF WBC UA (BEAKER) (test yzej=688) 2 /HPF BACTERIA (BEAKER) (test hnyc=987) Occasional SQUAMOUS EPITHELIAL (BEAKER) (test 19 /HPF sndo=579) HYALINE CASTS (BEAKER) (test ngpd=081) 5 /LPF AMORPHOUS CRYSTALS (BEAKER) (test Occasional kukm=3575) SOURCE(BEAKER) (test fsbs=1115) Urine, Clean Catch U/S, ABDOMINAL, [id number] 13:29:00Abdomen limited area? Add comment if clarification is needed.->LiverReason for exam:->Look formasses in cirrhotic patientFINAL REPORT ULTRASOUND RIGHT UPPER QUADRANT OF THE [...] structures of the abdomen. Signed: Dilip Valles Verified Date/Time: 11/23/2018 13:29:13 Reading Location: [address] Transitional Reading Room U/S, [id number] 13:01:00Reason for exam:->Therapeutic paracentesisFINAL REPORT Paracentesis dated 11/23/2018 Procedure: Ultrasound-guided paracentesis. Preprocedure diagnosis: Ascites Postprocedure diagnosis: Ascites Conscious sedation: None. Radiologist: Giovanni Haas M.D. Forensic Toxicologist: None Anesthesia: 1% Xylocaine mixed with sodium bicarbonate local anesthesia. Technique: After obtaining informed consent, ultrasound-guided paracentesis was performed under usual sterile technique. Using a 5 nepali drainage catheter , puncture was made in the right lower quadrant abdomen. Approximately 16,200 cc of serous fluid was removed. Patient tolerated the procedure well without complication. Complication: None Graft/Implant: None Estimated Blood Loss: None Impression: Ultrasound-guided paracentesis. Signed: Giovanni Haas Verified Date/Time: 11/23/2018 13:01:25 Reading Location: [facility] C013X Ortho Consult Reading Room Electronically signedby: GIOVANNI HAAS M.D. on 2018 01:01 PMCBC W/PLT COUNT & AUTO [id number] 08:55:00 Test Item Value Reference Range Comments WHITE BLOOD CELL COUNT (BEAKER) (test qwtg=604) 5.7 K/ L 3.5-10.5 RED BLOOD CELL COUNT (BEAKER) (test gxuw=392) 3.72 M/ L 3.93-5.22 HEMOGLOBIN (BEAKER) (test igej=270) 10.5 GM/DL 11.2-15.7 HEMATOCRIT (BEAKER) (test kzbu=446) 32.5 % 34.1-44.9 MEAN CORPUSCULAR VOLUME (BEAKER) (test frnp=310) 87.4 fL 79.4-94.8 MEAN CORPUSCULAR HEMOGLOBIN (BEAKER) (test 28.2 pg 25.6-32.2 lrez=198) MEAN CORPUSCULAR HEMOGLOBIN CONC (BEAKER) (test 32.3 GM/DL 32.2-35.5 uond=272) RED CELL DISTRIBUTION WIDTH (BEAKER) (test 14.5 % 11.7-14.4 zvlo=244) PLATELET COUNT (BEAKER) (test figt=276) 148 K/CU MM 150-450 MEAN PLATELET VOLUME (BEAKER) (test squa=033) 9.4 fL 9.4-12.3 NUCLEATED RED BLOOD CELLS (BEAKER) (test 0 /100 WBC 0-0 nnuk=506) NEUTROPHILS RELATIVE PERCENT (BEAKER) (test 63 % ogcg=669) LYMPHOCYTES RELATIVE PERCENT (BEAKER) (test 23 % kagi=715) MONOCYTES RELATIVE PERCENT (BEAKER) (test 8 % wkdj=480) EOSINOPHILS RELATIVE PERCENT (BEAKER) (test 5 % kvrb=584) BASOPHILS RELATIVE PERCENT (BEAKER) (test 1 % ieuu=327) NEUTROPHILS ABSOLUTE COUNT (BEAKER) (test 3.61 K/ L 1.56-6.13 wjcj=624) LYMPHOCYTES ABSOLUTE COUNT (BEAKER) (test 1.29 K/ L 1.18-3.74 ysiu=616) MONOCYTES ABSOLUTE COUNT (BEAKER) (test 0.47 K/ L 0.24-0.36 ddta=187) EOSINOPHILS ABSOLUTE COUNT (BEAKER) (test 0.28 K/ L 0.04-0.36 tyah=980) BASOPHILS ABSOLUTE COUNT (BEAKER) (test 0.05 K/ L 0.01-0.08 qkds=064) IMMATURE GRANULOCYTES-RELATIVE PERCENT (BEAKER) 0 % 0-1 (test mtvy=9252) POCT-GLUCOSE [id number] 07:43:00 Test Item Value Reference Range Comments POC-GLUCOSE METER (BEAKER) 196 mg/dL 70-110 TESTED AT [facility] [address] [facility] (test vpad=3537) [facility] [address] [id number] 06:53:00 Test Item Value Reference Range Comments FERRITIN (BEAKER) (test nmpl=555) 52 ng/mL 5-275 HEPATITIS B [id number] 06:21:00 Test Item Value Reference Range Comments HEPATITIS B CORE TOTAL ANTIBODY (BEAKER) (test Nonreactive Nonreactive uwst=278) HEPATITIS B SURFACE ANTIBODY (BEAKER) (test < mIU/mL <8.0 wbli=679) HEPATITIS B SURFACE ANTIGEN (2) (BEAKER) (test Nonreactive Nonreactive zqeq=1573) HEPATITIS C [id number] 06:20:00 Test Item Value Reference Range Comments HEPATITIS C ANTIBODY (BEAKER) (test urfw=575) Nonreactive Nonreactive HEPATITIS A [id number] 06:20:00 Test Item Value Reference Range Comments HEPATITIS A IGM ANTIBODY (BEAKER) (test Nonreactive Nonreactive dema=791) HEPATITIS A IGG ANTIBODY (BEAKER) (test Nonreactive Nonreactive pbpt=9899) ALPHA FETOPROTEIN (AFP), TUMOR [id number] 06:14:00 Test Item Value Reference Range Comments ALPHA-FETOPROTEIN (BEAKER) (test ualn=0325) 2.1 ng/mL <10.0 COMPREHENSIVE METABOLIC [id number] 06:01:00 Test Item Value Reference Range Comments TOTAL PROTEIN (BEAKER) 5.9 gm/dL 6.0-8.3 (test ozcb=587) ALBUMIN (BEAKER) (test 2.9 g/dL 3.5-5.0 wqyd=8925) ALKALINE PHOSPHATASE 96 U/L 40-150 (BEAKER) (test anfp=290) BILIRUBIN TOTAL (BEAKER) 0.5 mg/dL 0.2-1.2 (test rmuq=317) SODIUM (BEAKER) (test 132 meq/L 136-145 vurk=175) POTASSIUM (BEAKER) (test 4.3 meq/L 3.5-5.1 emir=486) CHLORIDE (BEAKER) (test 100 meq/L 98-107 ytqk=956) CO2 (BEAKER) (test 26 meq/L 22-29 gzpt=064) BLOOD UREA NITROGEN 50 mg/dL 7-21 (BEAKER) (test kasm=769) CREATININE (BEAKER) (test 2.27 mg/dL 0.57-1.25 slwr=749) GLUCOSE RANDOM (BEAKER) 219 mg/dL 70-105 (test hsiw=178) CALCIUM (BEAKER) (test 8.8 mg/dL 8.4-10.2 ieez=384) AST (SGOT) (BEAKER) (test 22 U/L 5-34 cfrg=448) ALT (SGPT) (BEAKER) (test 15 U/L 6-55 ijte=580) EGFR (BEAKER) (test 22 mL/min/1.73 sq m ESTIMATED GFR IS NOT cxaj=8958) ACCURATE CREATININE CLEARANCE IN PREDICTING GLOMERULAR FILTRATION RATE. ESTIMATED GFR IS NOT APPLICABLE FOR DIALYSIS PATIENTS. IRON, TIBC, % SAT. (WITHOUT FERRITIN)2018-11-23 05:55:00 Test Item Value Reference Range Comments IRON (BEAKER) (test vnph=467) 46.0 ug/dL 40.0-160.0 TOTAL IRON BINDING CAPACITY (BEAKER) (test 269 ug/dL 250-450 wibi=832) IRON % SATURATION (2) (BEAKER) (test xbix=3859) 17 % 20-55 [id number] 05:54:00 Test Item Value Reference Range Comments ALPHA-1 ANTITRYPSIN (BEAKER) (test qguk=161) 202.70 mg/dL 90.00-200.00 COMPREHENSIVE METABOLIC [id number] 00:16:00 Test Item Value Reference Range Comments TOTAL PROTEIN (BEAKER) 6.8 gm/dL 6.0-8.3 (test dopw=240) ALBUMIN (BEAKER) (test 3.3 g/dL 3.5-5.0 vjpy=4272) ALKALINE PHOSPHATASE 114 U/L 40-150 (BEAKER) (test agea=597) BILIRUBIN TOTAL (BEAKER) 0.6 mg/dL 0.2-1.2 (test yfqu=908) SODIUM (BEAKER) (test 130 meq/L 136-145 pmpw=528) POTASSIUM (BEAKER) (test 4.4 meq/L 3.5-5.1 ldhm=023) CHLORIDE (BEAKER) (test 99 meq/L 98-107 gisk=112) CO2 (BEAKER) (test 22 meq/L 22-29 snow=273) BLOOD UREA NITROGEN 46 mg/dL 7-21 (BEAKER) (test utjg=071) CREATININE (BEAKER) (test 2.40 mg/dL 0.57-1.25 rkru=009) GLUCOSE RANDOM (BEAKER) 153 mg/dL 70-105 (test zmzd=745) CALCIUM (BEAKER) (test 9.1 mg/dL 8.4-10.2 gmok=321) AST (SGOT) (BEAKER) (test 25 U/L 5-34 ebil=331) ALT (SGPT) (BEAKER) (test 17 U/L 6-55 dfsp=080) EGFR (BEAKER) (test 21 mL/min/1.73 sq m ESTIMATED GFR IS NOT egyf=0834) ACCURATE CREATININE CLEARANCE IN PREDICTING GLOMERULAR FILTRATION RATE. ESTIMATED GFR IS NOT APPLICABLE FOR DIALYSIS PATIENTS. [id number] 23:52:00 Test Item Value Reference Range Comments PROTIME (BEAKER) (test tiyj=119) 13.3 seconds 11.7-14.7 INR (BEAKER) (test zvry=251) 1.0 <=5.9 PARTIAL THROMBOPLASTIN TIME (BEAKER) (test 26.9 seconds 22.5-36.0 geco=767) RECOMMENDED COUMADIN/WARFARIN INR THERAPY RANGESSTANDARD DOSE: 2.0 - 3.0 Includes: PROPHYLAXIS forvenous thrombosis, systemic embolization; TREATMENT for venous thrombosis and/or pulmonary embolus.HIGH RISK: Target INR is 2.5-3.5 for patients with mechanical heart valves.POCT-GLUCOSE [id number] 21:25:00 Test Item Value Reference Range Comments POC-GLUCOSE METER (BEAKER) 178 mg/dL 70-110 TESTED AT [facility] [address] [facility] (test lbmi=6276) [facility] [address]
[2018-12-05 07:02] LABS: Absolute Lymphocytes (CBC) 1.5 K/uL (0.7-4.9); Absolute Monocytes 0.5 K/uL (0.1-1.3); Absolute Neutrophil 3.7 K/uL (1.8-8.0); Basophils % 1.2 % (0-1.3); Eosinophils % 4.4 % (0-4.4); Hematocrit 35.3 % (36.0-45.0); Lymphocytes % 24.6 % (15.3-44.8); MPV 7.5 fL (7.6-11.3); Monocytes % 7.7 % (3.3-12.3); RBC Red Blood Cell Count 4.17 M/uL (3.86-4.86)
[2018-12-05 07:17] LABS: Albumin 2.6 g/dL (3.4-5.0); Bilirubin Direct 0.2 mg/dL (0-0.2); Bilirubin Total 0.6 mg/dL (0.2-1.0); Potassium 4.8 mmol/L (3.5-5.1)
[2018-12-05] MEDS ORDERED: ONDANSETRON 4 MG/2 ML VIAL ONE (07:20)
--- NOTE | 2018-12-05 07:28 | ER ---
Nurse's Notes [facility] Name: Dee Maciel Age: 58 yrs Sex: Female : 1960 Arrival Date: 12/05/2018 Time: 06:12 Bed 17 Private MD: Atr Pollock E Diagnosis: Ascites Presentation: 12/05 06:19 Presenting complaint: Patient states: I woke up extremely nauseated and I need a ed1 paracentesis. I am waiting for a follow up appointment with Dr. Engle's office. Transition of care: patient was not received from another setting of care. Onset of symptoms was December 05, 2018. Risk Assessment: Do you want to hurt yourself or someone else? Patient reports no desire to harm self or others. Initial Sepsis Screen: Does the patient meet any 2 criteria? No. Patient's initial sepsis screen is negative. Does the patient have a suspected source of infection? No. Patient's initial sepsis screen is negative. Care prior to arrival: None. 06:19 Method Of Arrival: Ambulatory ed1 06:19 Acuity: ASAF 3 ed1 Triage Assessment: 06:25 General: Appears uncomfortable, Behavior is calm, cooperative. Pain: Denies pain. GI: ed1 Abdomen is noted to have ascites, Reports nausea. Historical: - Allergies: 06:25 No Known Allergies; ed1 - Home Meds: 06:25 lactulose 10 gram/15 mL (15 mL) Oral soln 30 mL twice a day [Active]; simvastatin 20 mg ed1 Oral tab 1 tab once daily [Active]; omeprazole 20 mg Oral cpDR 1 cap once daily [Active]; glimepiride 1 mg Oral tab 1 tab once daily [Active]; levothyroxine 200 mcg tab 1 tab once daily [Active]; sertraline 50 mg oral tab 1 tab once daily [Active]; furosemide 40 mg Oral tab 1.5 tab once daily [Active]; spironolactone 100 mg Oral tab 1 tab once daily [Active]; gabapentin 100 mg oral cap 2 caps nightly [Active]; pioglitazone 15 mg oral tab 1 tab once daily [Active]; midodrine 5 mg oral tab 1 tabs twice a day [Active]; - PMHx: 06:25 Diabetes - NIDDM; Hypothyroidism; WYNN liver; ed1 - PSHx: 06:25 paracentesis; ed1 - Immunization history:: Adult Immunizations up to date, Flu vaccine is up to date. - Social history:: Smoking status: Patient/guardian denies using tobacco. - Ebola Screening: : Patient negative for fever greater than or equal to 101.5 degrees Fahrenheit, and additional compatible Ebola Virus Disease symptoms Patient denies exposure to infectious person Patient denies travel to an Ebola-affected area in the 21 days before illness onset No symptoms or risks identified at this time. Screenin:40 Abuse screen: Denies threats or abuse. Denies injuries from another. Nutritional cc3 screening: No deficits noted. Tuberculosis screening: No symptoms or risk factors identified. Fall Risk Ambulatory Aid- None/Bed Rest/Nurse Assist (0 pts). Gait- Normal/Bed Rest/Wheelchair (0 pts) Mental Status- Oriented to own ability (0 pts). Assessment: 07:07 General: Appears in no apparent distress. comfortable, Behavior is calm, cooperative, em Denies fever. Pain: Denies pain. Neuro: Level of Consciousness is awake, alert, obeys commands, Oriented to person, place, time, situation. Cardiovascular: Denies chest pain. Respiratory: Airway is patent Respiratory effort is even, unlabored, Respiratory pattern is regular, symmetrical. GI: Abdomen is distended, Reports nausea. : No signs and/or symptoms were reported regarding the genitourinary system. Derm: Skin is intact, Skin is pink, warm \T\ dry. Musculoskeletal: Range of motion: intact in all extremities. 07:20 Reassessment: Patient appears in no apparent distress at this time. Patient and/or em family updated on plan of care and expected duration. Pain level reassessed. Patient is alert, oriented x 3, equal unlabored respirations, skin warm/dry/pink. Patient states symptoms have improved. 07:30 Reassessment: pt signed consent form, pending paracentesis. em 07:35 Reassessment: I agree with previous assessment. hb 08:10 Reassessment: pt wheeled to radiology dept. for procedure. em 09:18 Reassessment: Patient appears in no apparent distress at this time. Patient and/or em family updated on plan of care and expected duration. Pain level reassessed. Patient is alert, oriented x 3, equal unlabored respirations, skin warm/dry/pink. returned from radiology. 09:50 Reassessment: Patient appears in no apparent distress at this time. No changes from em previously documented assessment. Patient and/or family updated on plan of care and expected duration. Pain level reassessed. Patient is alert, oriented x 3, equal unlabored respirations, skin warm/dry/pink. Patient denies pain at this time. Patient states symptoms have improved. 10:00 Reassessment: Patient appears in no apparent distress at this time. Patient and/or em family updated on plan of care and expected duration. Pain level reassessed. Patient is alert, oriented x 3, equal unlabored respirations, skin warm/dry/pink. pending completion of albumin order Patient denies pain at this time. 11:02 Reassessment: Patient appears in no apparent distress at this time. Patient and/or em family updated on plan of care and expected duration. Pain level reassessed. Patient is alert, oriented x 3, equal unlabored respirations, skin warm/dry/pink. Patient denies pain at this time. 12:00 Reassessment: Patient appears in no apparent distress at this time. Patient and/or em family updated on plan of care and expected duration. Pain level reassessed. Patient is alert, oriented x 3, equal unlabored respirations, skin warm/dry/pink. 12:59 Reassessment: Patient appears in no apparent distress at this time. Patient and/or em family updated on plan of care and expected duration. Pain level reassessed. Patient is alert, oriented x 3, equal unlabored respirations, skin warm/dry/pink. Vital Signs: 06:25 BP 111 / 61; Pulse 80; Resp 18; Temp 98.1(O); Pulse Ox 96% on R/A; Weight 124.74 kg; ed1 Height 5 ft. 4 in. (162.56 cm); Pain 0/10; 07:07 BP 116 / 67; Pulse 75; Resp 16; Pulse Ox 97% on R/A; Pain 0/10; em 08:04 BP 112 / 74; Pulse 73; Resp 20; Temp 97.8(O); Pulse Ox 95% on R/A; Pain 5/10; mh5 09:20 BP 98 / 63; Pulse 66; Resp 18; Pulse Ox 98% on R/A; Pain 0/10; em 09:50 BP 106 / 57; Pulse 67; Resp 16; Pulse Ox 96% on R/A; em 10:00 BP 101 / 55; Pulse 68; Resp 18; Pulse Ox 99% on R/A; em 11:02 BP 101 / 51; Pulse 70; Resp 16; Pulse Ox 96% on R/A; Pain 0/10; em 12:00 BP 102 / 56; Pulse 67; Resp 18; Pulse Ox 99% on R/A; em 12:50 BP 100 / 56; Pulse 76; Resp 18; Temp 97.9(O); Pulse Ox 98% on R/A; mh5 06:25 Body Mass Index 47.20 (124.74 kg, 162.56 cm) ed1 ED Course: 06:12 Patient arrived in ED. es 06:13 Art Pollock MD is Private Physician. es 06:18 Minerva Babcock, ALEXI is Primary Nurse. ed1 06:20 Triage completed. ed1 06:22 Rosi Little FNP-C is PHCP. kb 06:22 Maynor Lo MD is Attending Physician. kb 06:25 Arm band placed on. ed1 06:50 Inserted saline lock: 20 gauge in right antecubital area, using aseptic technique. cc3 Blood collected. inserted by dairy manufacturing technologist . 07:00 Report given to CLEMENCIA Easton. cc3 07:07 Patient has correct armband on for positive identification. Placed in gown. Bed in low em position. Call light in reach. Side rails up X2. Adult w/ patient. 07:13 Rustam Campos LVN is Primary Nurse. em 07:28 Maria Guadalupe Frias MD is Hospitalizing Provider. kb 07:47 Initial lab(s) drawn, sent to lab. mh5 07:48 Ptt, Activated Sent. mh5 07:48 PT-INR Sent. mh5 08:15 Patient taken to ultrasound. via stretcher. aa4 08:44 Paracentesis Proc Guidance In Process Unspecified. EDMS 09:11 Attending Physician role handed off by Maynor Lo MD kdr 09:11 López Gibbs MD is Attending Physician. kdr 09:20 Ultrasound completed. Patient moved back from ultrasound. aa4 12:24 Bishop Peralta MD is Referral Physician. kb 13:00 No provider procedures requiring assistance completed. IV discontinued, intact, em bleeding controlled, No redness/swelling at site. Pressure dressing applied. Administered Medications: 07:12 Drug: Zofran 4 mg Route: IVP; Site: right antecubital; hb 07:30 Follow up: Response: No adverse reaction; Nausea is decreased em 09:52 Drug: Albumin 75 grams Volume: 100 ml; Route: IVPB; Site: right antecubital; hb 13:01 Follow up: Response: No adverse reaction; IV Status: Completed infusion; IV Intake: em 300ml Intake: 13:01 IV: 300ml; Total: 300ml. em Outcome: 07:28 Decision to Hospitalize by Provider. kb 12:24 Discharge ordered by MD. kb 13:01 Discharged to home ambulatory, with family. em 13:01 Condition: good 13:01 Discharge instructions given to patient, family, Instructed on discharge instructions, follow up and referral plans. Demonstrated understanding of instructions, follow-up care. 13:02 Patient left the ED. em Signatures: Dispatcher [employer] EDRosi Paulino, DELIVERY CREW WORKER-C DELIVERY CREW WORKER-Ckb López Gibbs MD MD kdr Salyer, Edna es Munoz, Edgar, CAKE INSPECTOR CAKE INSPECTOR em Fanny Schrader4 Minerva Babcock RN RN ed1 Elle Sorto RN RN hb Martinez, Maria [facility] Leonarda Bhatt 3
--- NOTE | 2018-12-05 07:29 | EDPHYS ---
Physician Documentation [facility] Name: Dee Maciel Age: 58 yrs Sex: Female : 1960 Arrival Date: 12/05/2018 Time: 06:12 Bed 17 Private MD: Art Pollock E ED Physician López Gibbs HPI: 12/05 06:52 This 58 yrs old Female presents to ER via Ambulatory with complaints of kb Nausea, Abdominal Swelling. 06:53 The patient presents with abdominal distention that is diffuse. Onset: The kb symptoms/episode began/occurred last week. The symptoms do not radiate. Associated signs and symptoms: Pertinent positives: nausea, Pertinent negatives: anorexia, blood in stools, chest pain, constipation, diarrhea, dysuria, fever, headache, hematuria, palpitations, shortness of breath, vaginal discharge, vomiting, vomiting blood. The symptoms are described as constant. Modifying factors: The symptoms are alleviated by nothing, the symptoms are aggravated by nothing. Severity of pain: At its worst the pain was moderate in the emergency department the pain is unchanged. The patient has experienced similar episodes in the past. The patient has not recently seen a physician. Pt reports she normally gets a paracentesis done weekly at [facility], but recently got insurance so she has been waiting to get in with Dr Engle. States she hasn't had a paracentesis in 2 weeks and the ascites is causing nausea and back pain. Historical: - Allergies: 06:25 No Known Allergies; ed1 - Home Meds: 06:25 lactulose 10 gram/15 mL (15 mL) Oral soln 30 mL twice a day [Active]; simvastatin 20 mg ed1 Oral tab 1 tab once daily [Active]; omeprazole 20 mg Oral cpDR 1 cap once daily [Active]; glimepiride 1 mg Oral tab 1 tab once daily [Active]; levothyroxine 200 mcg tab 1 tab once daily [Active]; sertraline 50 mg oral tab 1 tab once daily [Active]; furosemide 40 mg Oral tab 1.5 tab once daily [Active]; spironolactone 100 mg Oral tab 1 tab once daily [Active]; gabapentin 100 mg oral cap 2 caps nightly [Active]; pioglitazone 15 mg oral tab 1 tab once daily [Active]; midodrine 5 mg oral tab 1 tabs twice a day [Active]; - PMHx: 06:25 Diabetes - NIDDM; Hypothyroidism; W[place]NN liver; ed1 - PSHx: 06:25 paracentesis; ed1 - Immunization history:: Adult Immunizations up to date, Flu vaccine is up to date. - Social history:: Smoking status: Patient/guardian denies using tobacco. - Ebola Screening: : Patient negative for fever greater than or equal to 101.5 degrees Fahrenheit, and additional compatible Ebola Virus Disease symptoms Patient denies exposure to infectious person Patient denies travel to an Ebola-affected area in the 21 days before illness onset No symptoms or risks identified at this time. ROS: 06:46 Constitutional: Negative for fever, chills, and weight loss, Cardiovascular: Negative kb for chest pain, palpitations, and edema, Respiratory: Negative for shortness of breath, cough, wheezing, and pleuritic chest pain, Back: Negative for injury and pain, MS/Extremity: Negative for injury and deformity, Skin: Negative for injury, rash, and discoloration, Neuro: Negative for headache, weakness, numbness, tingling, and seizure. 06:46 Abdomen/GI: Positive for nausea, ascites. Exam: 06:46 Constitutional: This is a well developed, well nourished patient who is awake, alert, kb and in no acute distress. Head/Face: Normocephalic, atraumatic. Chest/axilla: Normal chest wall appearance and motion. Nontender with no deformity. No lesions are appreciated. Cardiovascular: Regular rate and rhythm with a normal S1 and S2. No gallops, murmurs, or rubs. Normal PMI, no JVD. No pulse deficits. Respiratory: Lungs have equal breath sounds bilaterally, clear to auscultation and percussion. No rales, rhonchi or wheezes noted. No increased work of breathing, no retractions or nasal flaring. Back: No spinal tenderness. No costovertebral tenderness. Full range of motion. Skin: Warm, dry with normal turgor. Normal color with no rashes, no lesions, and no evidence of cellulitis. MS/ Extremity: Pulses equal, no cyanosis. Neurovascular intact. Full, normal range of motion. Neuro: Awake and alert, GCS 15, oriented to person, place, time, and situation. Cranial nerves II-XII grossly intact. Motor strength 5/5 in all extremities. Sensory grossly intact. Cerebellar exam normal. Normal gait. 06:46 Abdomen/GI: Inspection: distension, that is severe, in the abdomen diffusely, Bowel sounds: normal, in all quadrants, Palpation: firm . Vital Signs: 06:25 BP 111 / 61; Pulse 80; Resp 18; Temp 98.1(O); Pulse Ox 96% on R/A; Weight 124.74 kg; ed1 Height 5 ft. 4 in. (162.56 cm); Pain 0/10; 07:07 BP 116 / 67; Pulse 75; Resp 16; Pulse Ox 97% on R/A; Pain 0/10; em 08:04 BP 112 / 74; Pulse 73; Resp 20; Temp 97.8(O); Pulse Ox 95% on R/A; Pain 5/10; mh5 09:20 BP 98 / 63; Pulse 66; Resp 18; Pulse Ox 98% on R/A; Pain 0/10; em 09:50 BP 106 / 57; Pulse 67; Resp 16; Pulse Ox 96% on R/A; em 10:00 BP 101 / 55; Pulse 68; Resp 18; Pulse Ox 99% on R/A; em 11:02 BP 101 / 51; Pulse 70; Resp 16; Pulse Ox 96% on R/A; Pain 0/10; em 12:00 BP 102 / 56; Pulse 67; Resp 18; Pulse Ox 99% on R/A; em 12:50 BP 100 / 56; Pulse 76; Resp 18; Temp 97.9(O); Pulse Ox 98% on R/A; mh5 06:25 Body Mass Index 47.20 (124.74 kg, 162.56 cm) ed1 MDM: 06:22 Patient medically screened. kb 06:52 Data reviewed: vital signs, nurses notes. Data interpreted: Pulse oximetry: on room air kb is 96 %. Interpretation: normal. 06:55 Counseling: I had a detailed discussion with the patient and/or guardian regarding: the kb historical points, exam findings, and any diagnostic results supporting the discharge/admit diagnosis, lab results, the need for further work-up and treatment in the hospital. 07:25 Physician consultation: Maria Guadalupe Frias MD was contacted at 07:27, regarding admission, kb to the medical/surgical unit. patient's condition, and will see patient in ED, shortly. 07:27 Physician consultation: Chance Chow MD was contacted at 07:27, regarding consult, for kb paracentesis. 12:19 ED course: Pt reports relief after paracentesis. Has no pain and no complaints. Resting kb comfortably during albumin infusion. Will discharge home upon completion of infusion. Appointment made for pt with Dr Peralta at 2:15 on 12/11/18. Pt will get therapeutic paracentesis done in office in the future. 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 12/05 06:26 Order name: Basic Metabolic Panel; Complete Time: 07:18 kb 12/05 06:26 Order name: CBC with Diff; Complete Time: 07:08 kb 12/05 06:26 Order name: Hepatic Function; Complete Time: 07:18 kb 12/05 06:26 Order name: Lipase; Complete Time: 07:18 kb 12/05 06:26 Order name: AMMONIA; Complete Time: 07:08 kb 12/05 07:34 Order name: PT-INR; Complete Time: 07:58 kb 12/05 06:26 Order name: IV Saline Lock; Complete Time: 06:50 kb 12/05 06:26 Order name: Labs collected and sent; Complete Time: 06:50 kb 12/05 07:34 Order name: Ptt, Activated; Complete Time: 07:58 kb 12/05 07:37 Order name: Paracentesis Proc Guidance; Complete Time: 10:36 EDMS Administered Medications: 07:12 Drug: Zofran 4 mg Route: IVP; Site: right antecubital; hb 07:30 Follow up: Response: No adverse reaction; Nausea is decreased em 09:52 Drug: Albumin 75 grams Volume: 100 ml; Route: IVPB; Site: right antecubital; hb 13:01 Follow up: Response: No adverse reaction; IV Status: Completed infusion; IV Intake: em 300ml Disposition: 16:09 Co-signature as Attending Physician, López Gibbs MD I agree with the assessment and kdr plan of care. Disposition: 12/05/18 12:24 Discharged to Home. Impression: Ascites. - Condition is Stable. - Discharge Instructions: Ascites, Paracentesis, Care After. - Medication Reconciliation Form, Thank You Letter, Antibiotic Education, Prescription Opioid Use form. - Follow up: Emergency Department; When: As needed; Reason: Worsening of condition. Follow up: Bishop Peralta MD; When: 12/11/2018; Reason: Recheck today's complaints. - Notes: Appt with Dr Peralta at 2:15 on December 11, 2018. Paracentesis will be scheduled to be done in office Signatures: Dispatcher [employer] EDMS Rosi Little, MS ACCESS DATABASE DEVELOPER-C MS ACCESS DATABASE DEVELOPER-López Galan MD MD [facility] Rustam Campos, CHIEF OF HOSPITAL MEDICINE CHIEF OF HOSPITAL MEDICINE em Minerva Babcock RN RN ed1 Elle Sorto RN RN Corrections: (The following items were deleted from the chart) 06:52 06:46 Abdomen/GI: Positive for abdominal pain, nausea, kb kb 06:55 06:46 Abdomen/GI: Inspection: marked ascites , Bowel sounds: normal, in all quadrants, kb Palpation: firm , kb 11:16 07:28 Hospitalization Ordered by Maria Guadalupe Frias MD for Observation. Preliminary kb diagnosis is Ascites. Bed requested for Telemetry/MedSurg (observation). Status is Observation. Condition is Stable. Problem is an acute exacerbation. Symptoms are unchanged. UTI on Admission? No. kb 13:02 12:24 12/05/2018 12:24 Discharged to Home. Impression: Ascites. Condition is Stable. em Forms are Medication Reconciliation Form, Thank You Letter, Antibiotic Education, Prescription Opioid Use. Follow up: Emergency Department; When: As needed; Reason: Worsening of condition. Follow up: Bishop Peralta; When: 12/11/2018; Reason: Recheck today's complaints. kb
[2018-12-05 07:56] LABS: Protime INR 0.94
[2018-12-05] MEDS ORDERED: ALBUMIN HUMAN 25% 100 ML IV SCH (09:30)
--- NOTE | 2018-12-05 09:58 | RAD REPORT ---
EXAM DESCRIPTION: US - Paracentesis Proc Guidance - 12/05/2018 8:44 am CLINICAL HISTORY: Ascites Patient has a history of recurring paracentesis procedures performed at outside facilities. COMPARISON: Paracentesis procedure April 2017. TECHNIQUE: The patient presents from the emergency department for ultrasound-guided paracentesis. T he procedure, risks and alternatives were discussed with the patient in detail. Oral and written cons ent were obtained. Time out procedure was performed. The patient had no contraindicated allergy or medication history. PT, INR values within acceptable limits. Preliminary sonographic evaluation identified right lower quadrant access site. The skin and deeper tissues were anesthetized with 1 percent lidocaine. Under direct sonographic visualization, a parace ntesis catheter was advanced into the peritoneal cavity. Large volume drainage was initiated. Approx imately 13 liters of ascites removed. At the conclusion of the procedure, catheter was withdrawn and a bandage placed at the puncture site. Patient was transferred back to the emergency department for post paracentesis care, monitoring and albumin infusion. IMPRESSION: Ultrasound-guided paracentesis as detailed.
== END 2018-12-05 13:02 | disposition home or self-care (01) ==
LOC: ER 06:08
DX: R18.8 Other ascites (principal); K75.81 Nonalcoholic steatohepatitis (NASH); E03.9 Hypothyroidism, unspecified; E11.9 Type 2 diabetes mellitus without complications
CPT/HCPCS: 36415; 49083; 80048; 80076; 82140; 83690; 85025; 85610; 85730; 96365; 96366; 96375; 99284; J2405; P9047

== ENCOUNTER 2018-12-17 09:39 | Day surgery (SDC) | payer OTHER ==
--- OUTSIDE RECORDS SUMMARY | 2018-12-17 10:09 | XMS REPORT | Clinical Summary ---
:1960 Author Organization [facility] Address [address] [place] [address] Care Team Providers Name Role Phone Unavailable [...] mellitus type 2 in obese (HCC) after 12/16/2017 Immunizations Name Dates Previously Given Next Due [...] Taken Blood Pressure 100/50 11/24/2018 11:07 AM PIPELINE WELDER Pulse 85 11/24/2018 11:07 AM PIPELINE WELDER Temperature 36.3 C (97.3 F) 11/24/2018 11:07 AM PIPELINE WELDER Respiratory Rate 19 11/24/2018 11:07 AM PIPELINE WELDER Oxygen Saturation 93% 11/24/2018 11:07 AM PIPELINE WELDER Inhaled Oxygen Concentration 21% 11/24/2018 2:46 AM PIPELINE WELDER Weight 108.5 kg (239 lb 4.8 oz) 11/24/2018 7:00 AM PIPELINE WELDER Height 162.6 cm (5' 4") 11/22/2018 7:09 PM PIPELINE WELDER Body Mass Index 41.08 11/24/2018 7:00 AM PIPELINE WELDER Plan of Treatment Not on file Procedures Procedure Name Priority Date/Time Associated Comments Diagnosis RHYTHM STRIP - SCAN 12/13/2018 7:50 AM PIPELINE WELDER POCT-GLUCOSE METER Routine 11/24/2018 7:49 Results for this AM PIPELINE WELDER procedure are in the results section. CBC W/PLT COUNT & AUTO Routine 11/24/2018 4:27 Results for this DIFFERENTIAL AM PIPELINE WELDER procedure are in the results section. OSMOLALITY, SERUM Routine 11/24/2018 4:27 Results for this AM PIPELINE WELDER procedure are in the results section. PHOSPHORUS Routine 11/24/2018 4:27 Results for this AM PIPELINE WELDER procedure are in the results section. MAGNESIUM Routine 11/24/2018 4:27 Results for this AM PIPELINE WELDER procedure are in the results section. CALCIUM, IONIZED Routine 11/24/2018 4:27 Results for this AM PIPELINE WELDER procedure are in the results section. CBC W/PLT COUNT & AUTO Routine 11/24/2018 4:27 Results for this DIFFERENTIAL AM PIPELINE WELDER procedure are in the results section. COMPREHENSIVE Routine 11/24/2018 4:27 Results for this METABOLIC PANEL AM PIPELINE WELDER procedure are in the results section. US RENAL COMPLETE Routine 11/24/2018 3:20 Results for this AM PIPELINE WELDER procedure are in the results section. TROPONIN I Routine 11/23/2018 9:41 Results for this PM PIPELINE WELDER procedure are in the results section. ECG 12-LEAD Routine 11/23/2018 9:19 PM PIPELINE WELDER Procedure Note - Interface, External Ris In - 11/23/2018 9:22 PM PIPELINE WELDER Ventricular Rate 77 BPM Atrial Rate 77 BPM P-R Interval 172 ms QRS Duration 80 ms Q-T Interval 392 ms QTC Calculation(Bazett) 443 ms P Brenton 44 degrees R Brenton -47 degrees T Brenton 50 degrees Normal sinus rhythm Left axis deviation Low voltage QRS Cannot rule out Anterior infarct , age undetermined Abnormal ECG No previous ECGs available ECG 12-LEAD STAT 11/23/2018 9:19 PM PIPELINE WELDER POCT-GLUCOSE METER Routine 11/23/2018 8:44 PM PIPELINE WELDER SODIUM, RANDOM URINE Routine 11/23/2018 7:01 PM PIPELINE WELDER PROTEIN, RANDOM URINE Routine 11/23/2018 7:01 PM PIPELINE WELDER POCT-GLUCOSE METER Routine 11/23/2018 5:17 PM PIPELINE WELDER POCT-GLUCOSE METER Routine 11/23/2018 2:01 PM PIPELINE WELDER US ABDOMEN LIMITED Routine 11/23/2018 1:05 PM PIPELINE WELDER US PARACENTESIS Routine 11/23/2018 12:48 PM PIPELINE WELDER URINALYSIS W/ MICROSCOPIC Routine 11/23/2018 10:58 AM PIPELINE WELDER CBC W/PLT COUNT & AUTO Routine 11/23/2018 8:40 AM PIPELINE WELDER Results for this DIFFERENTIAL procedure are in the results section. CBC W/PLT COUNT & AUTO Routine 11/23/2018 8:40 AM PIPELINE WELDER Results for this DIFFERENTIAL procedure are in the results section. POCT-GLUCOSE METER Routine 11/23/2018 7:02 AM PIPELINE WELDER ALPHA FETOPROTEIN (AFP), Routine 11/23/2018 4:53 AM PIPELINE WELDER Results for this TUMOR MARKER procedure are in the results section. HEPATITIS A PANEL Routine 11/23/2018 4:53 AM PIPELINE WELDER HEPATITIS B PANEL Routine 11/23/2018 4:53 AM PIPELINE WELDER HEPATITIS C ANTIBODY Routine 11/23/2018 4:53 AM PIPELINE WELDER ACTIN (SMOOTH MUSCLE) Routine 11/23/2018 4:53 AM PIPELINE WELDER Results for this ANTIBODY, IGG procedure are in the results section. ANTI-MITOCHONDRIAL AB, Routine 11/23/2018 4:53 AM PIPELINE WELDER REFLEX TO TITER [id number]\\, SERUM Routine 11/23/2018 4:53 AM PIPELINE WELDER CERULOPLASMIN Routine 11/23/2018 4:53 AM PIPELINE WELDER FERRITIN Routine 11/23/2018 4:53 AM PIPELINE WELDER IRON, TIBC, % SAT. (WITHOUT Routine 11/23/2018 4:53 AM PIPELINE WELDER Results for this FERRITIN) procedure are in the results section. COMPREHENSIVE METABOLIC Routine 11/23/2018 4:53 AM PIPELINE WELDER Results for this PANEL procedure are in the results section. PT/APTT Routine 11/22/2018 11:31 PM PIPELINE WELDER COMPREHENSIVE METABOLIC Routine 11/22/2018 11:31 PM PIPELINE WELDER Results for this PANEL procedure are in the results section. POCT-GLUCOSE METER Routine 11/22/2018 8:52 PM PIPELINE WELDER after 12/16/2017 Results RHYTHM STRIP - SCAN (12/13/2018 7:50 AM PIPELINE WELDER) Narrative Performed At POC-Glucose meter (11/24/2018 7:49 AM PIPELINE WELDER)Only the most recent of6 resultswithin the time period is included. POC-Glucose Meter 243 (H)Comment: TESTED AT 70 - 110 mg/dL [facility] [address] [facility] [id number] Specimen Blood Performing Organization Address City/State/Zipcode Phone Number [address] [address] CENTER Calcium, Ionized (11/24/2018 4:27 AM PIPELINE WELDER) Calcium, Ion 1.06 (L) 1.12 - 1.27 mmol/L [facility] pH, Blood 7.41 [facility] Specimen Blood Performing Organization Address City/State/Zipcode Phone Number [facility] [address] [place] [address] [phone] CENTER CBC with platelet count + automated diff (11/24/2018 4:27 AM PIPELINE WELDER)Only the most recent of2 resultswithin the time period is included. WBC 5.7 3.5 - 10.5 K/L [facility] RBC 3.76 (L) 3.93 - 5.22 M/L [facility] Hemoglobin 10.6 (L) 11.2 - 15.7 GM/DL [facility] Hematocrit 32.9 (L) 34.1 - 44.9 % [facility] MCV 87.5 79.4 - 94.8 fL [facility] MCH 28.2 25.6 - 32.2 pg [facility] MCHC 32.2 32.2 - 35.5 GM/DL [facility] RDW 14.2 11.7 - 14.4 % [facility] Platelets 142 (L) 150 - 450 K/CU MM [facility] MPV 9.8 9.4 - 12.3 fL [facility] nRBC 0 0 - 0 /100 WBC [facility] % Neutros 70 % [facility] % Lymphs 19 % [facility] % Monos 7 % [facility] % Eos 3 % [facility] % Baso 1 % [facility] # Neutros 3.99 1.56 - 6.13 K/L [facility] # Lymphs 1.05 (L) 1.18 - 3.74 K/L [facility] # Monos 0.40 (H) 0.24 - 0.36 K/L [facility] # Eos 0.16 0.04 - 0.36 K/L [facility] # Baso 0.04 0.01 - 0.08 K/L [facility] Immature Granulocytes-Relative 0 0 - 1 % [facility] Specimen Blood Performing Organization Address City/[facility] Phone Number [address] [address] CENTER Phosphorus (11/24/2018 4:27 AM PIPELINE WELDER) Phosphorus 3.6 2.3 - 4.7 mg/dL [facility] Specimen Blood Performing Organization Address [facility] Phone Number [address] [address] [phone] [place] Osmolality, serum (11/24/2018 4:27 AM PIPELINE WELDER) Osmolality Serum 301 (H) 275 - 295 mOsm/kg [facility] Specimen Blood Performing Organization Address [facility] Phone Number [address] [address] [phone] [place] Magnesium (11/24/2018 4:27 AM PIPELINE WELDER) Magnesium 2.0 1.6 - 2.6 mg/dL [facility] Specimen Blood Performing Organization Address [facility] Phone Number [address] [address] [phone] [place] Comprehensive metabolic panel (11/24/2018 4:27 AM PIPELINE WELDER)Only the most recent of3 resultswithin the time period is included. Protein, Total 5.5 (L) 6.0 - 8.3 gm/dL [facility] Albumin 3.2 (L) 3.5 - 5.0 g/dL [facility] Alkaline Phosphatase 75 40 - 150 U/L [facility] Total Bilirubin 0.9 0.2 - 1.2 mg/dL [facility] Sodium 132 (L) 136 - 145 meq/L [facility] Potassium 4.3 3.5 - 5.1 meq/L [facility] Chloride 101 98 - 107 meq/L [facility] CO2 25 22 - 29 meq/L [facility] BUN 45 (H) 7 - 21 mg/dL [facility] Creatinine 1.89 (H) 0.57 - 1.25 mg/dL [facility] Glucose 241 (H) 70 - 105 mg/dL [facility] Calcium 8.6 8.4 - 10.2 mg/dL [facility] AST 19 5 - 34 U/L [facility] ALT 10 6 - 55 U/L [facility] EGFR 27Comment: ESTIMATED GFR mL/min/1.73 sq m [facility] IS NOT ACCURATE [facility] CREATININE CLEARANCE IN PREDICTING GLOMERULAR FILTRATION RATE. ESTIMATED GFR IS NOT APPLICABLE FOR DIALYSIS PATIENTS. Specimen Blood Performing Organization Address City/State/Zipcode Phone Number [facility] [address] [place] [address] CENTER renal complete (11/24/2018 3:20 AM PIPELINE WELDER) Narrative Performed At FINAL REPORT [facility] U/S, RENAL, COMPLETE CLINICAL INDICATION:HEMALATHA/CKD COMPARISON: None [...] MD Report Verified Date/Time:11/24/2018 03:59:04 Reading Location: [address] Transitional Reading Room Procedure Note Interface, External Ris In - 11/24/2018 4:01 AM PIPELINE WELDER FINAL REPORT U/S, RENAL, COMPLETE CLINICAL INDICATION: [...] Report Verified Date/Time: 11/24/2018 03:59:04 Reading Location: [address] Transitional Reading Room Performing Organization Address City/State/Zipcode Phone Number [facility] Troponin I (11/23/2018 9:41 PM PIPELINE WELDER) Troponin I <0.01 0.00 - 0.03 ng/mL [facility] Specimen Blood Narrative Performed At Troponin I (TnI) levels must be interpreted [facility] in the context of the presenting symptoms [...] disease, and persistent tachyarrhythmia. Performing Organization Address City/State/Zipcode Phone Number [address] [address] [place] ECG 12 lead (11/23/2018 9:19 PM PIPELINE WELDER) Narrative Performed At Ventricular Rate 77 BPM GE MUSE Atrial Rate 77 BPM P-R Interval 172 ms QRS Duration 80 ms Q-T Interval 392 ms QTC Calculation(Bazett) 443 ms P Brenton 44 degrees R Brenton -47 degrees T Brenton 50 degrees Normal sinus rhythm Left axis deviation Low voltage QRS Cannot rule out Anterior infarct , age undetermined Abnormal ECG No previous ECGs available Confirmed by MD TRAMMELL JOSEPH P ([id number]) on 11/24/2018 6:45:48 AM Procedure Note Interface, External Ris In - 11/24/2018 6:45 AM PIPELINE WELDER Ventricular Rate 77 BPM Atrial Rate 77 BPM P-R Interval 172 ms QRS Duration 80 ms Q-T Interval 392 ms QTC Calculation(Bazett) 443 ms P Brenton 44 degrees R Brenton -47 degrees T Brenton 50 degrees Normal sinus rhythm Left axis deviation Low voltage QRS Cannot rule out Anterior infarct , age undetermined Abnormal ECG No previous ECGs available Confirmed by MD TRAMMELL JOSEPH P ([id number]) on 11/24/2018 6:45:48 AM Performing Organization Address [facility] Phone Number GE MUSE Sodium, random urine (11/23/2018 7:01 PM PIPELINE WELDER) Sodium Urine <20 meq/L [facility] Specimen Urine Narrative Performed At Reference Range: No Normals [facility] Performing Organization Address City/[facility]/Zipcode Phone Number [address] [address] [place] Protein, random urine (11/23/2018 7:01 PM PIPELINE WELDER) Protein, Urine 10 0 - 14 mg/dL [facility] Specimen Urine Performing Organization Address [facility]/Zipcode Phone Number [address] [address] [facility] abdomen limited (11/23/2018 1:05 PM PIPELINE WELDER) Narrative Performed At FINAL REPORT [facility] ULTRASOUND RIGHT UPPER QUADRANT OF THE ABDOMEN [...] MD Report Verified Date/Time:11/23/2018 13:29:13 Reading Location: [address] Transitional Reading Room Procedure Note Interface, External Ris In - 11/23/2018 1:31 PM PIPELINE WELDER FINAL REPORT ULTRASOUND RIGHT UPPER QUADRANT OF [...] Report Verified Date/Time: 11/23/2018 13:29:13 Reading Location: [place] [id number] Transitional Reading Room Performing Organization Address City/State/Zipcode Phone Number [facility] [employer] US paracentesis (11/23/2018 12:48 PM PIPELINE WELDER) Narrative Performed At FINAL REPORT [facility] [employer] Paracentesis dated 11/23/2018 Procedure: Ultrasound-guided paracentesis. Preprocedure diagnosis: Ascites Postprocedure diagnosis: Ascites Conscious sedation: None. Radiologist: Giovanni Haas M.D. Computer Repairer: None Anesthesia: 1% Xylocaine mixed with sodium bicarbonate local anesthesia. Technique: After obtaining informed consent, ultrasound-guided paracentesis was performed under usual sterile technique. Using a 5 swedish drainage catheter, puncture was made in the right lower quadrant abdomen. Approximately 16,200 cc of serous fluid was removed. Patient tolerated the procedure well without complication. Complication: None Graft/Implant: None Estimated Blood Loss: None Impression: Ultrasound-guided paracentesis. Signed: Giovanni Haas MD Report Verified Date/Time:11/23/2018 13:01:25 Reading Location: [facility] C013X Ortho Consult Reading Room Procedure Note Interface, External [facility] In - 11/23/2018 1:03 PM PIPELINE WELDER FINAL REPORT Paracentesis dated 11/23/2018 Procedure: Ultrasound-guided paracentesis. Preprocedure diagnosis: Ascites Postprocedure diagnosis: Ascites Conscious sedation: None. Radiologist: Giovanni Haas M.D. Computer Repairer: None Anesthesia: 1% Xylocaine mixed with sodium bicarbonate local anesthesia. Technique: After obtaining informed consent, ultrasound-guided paracentesis was performed under usual sterile technique. Using a 5 swedish drainage catheter, puncture was made in the right lower quadrant abdomen. Approximately 16,200 cc of serous fluid was removed. Patient tolerated the procedure well without complication. Complication: None Graft/Implant: None Estimated Blood Loss: None Impression: Ultrasound-guided paracentesis. Signed: Giovanni Haas MD Report Verified Date/Time: 11/23/2018 13:01:25 Reading Location: [facility] B1 C013X Ortho Consult Reading Room Performing Organization Address City/State/Zipcode Phone Number [facility] Urinalysis w/ Microscopic (11/23/2018 10:58 AM PIPELINE WELDER) Color, UA Yellow [facility] Clarity, UA Clear [facility] Specific [place], UA 1.015 1.001 - 1.035 [facility] pH, UA 5.0 5.0 - 8.0 [facility] Protein, UA Negative Negative [facility] Glucose, UA Negative Negative [facility] Ketones, UA Negative Negative [facility] Bilirubin, UA Negative Negative [facility] Blood, UA Negative Negative [facility] Nitrite, UA Negative Negative [facility] Leukocytes, UA Negative Negative [facility] Urobilinogen, UA 0.2 0.2 - 1.0 mg/dL [facility] RBC, UA <1 /HPF [facility] WBC, UA 2 /HPF [facility] Bacteria, UA Occasional [facility] Squam Epithel, UA 19 /HPF [facility] Hyaline Casts, UA 5 /LPF [facility] Amorphous Crystals Occasional [facility] Specimen Source Urine, Clean Catch [facility] Specimen Urine - Urine, Clean Catch Performing Organization Address [facility] Phone Number [address] [address] [place] Anti-Mitochondrial Ab, reflex to titer (11/23/2018 4:53 AM PIPELINE WELDER) Scan Result [facility] Specimen Blood Narrative Performed At Performing Organization Address City/[facility] Phone Number [place] [address] [address] [place] [address] Iron, TIBC, % sat. (without ferritin) (11/23/2018 4:53 AM PIPELINE WELDER) Iron 46.0 40.0 - 160.0 ug/dL [facility] TIBC 269 250 - 450 ug/dL [facility] Iron % Saturation 17 (L) 20 - 55 % [facility] Specimen Blood Performing Organization Address [facility] Phone Number [address] [address] [place] Hepatitis B Panel (11/23/2018 4:53 AM PIPELINE WELDER) Hep B Core Total Ab NON-REACTIVE Nonreactive [facility] Hep B S Ab <8.0 <8.0 mIU/mL [facility] hepatitis B Surface Ag NON-REACTIVE Nonreactive [facility] Specimen Blood Performing Organization Address [facility]/Zipcode Phone Number [address] [address] [place] Hepatitis A Panel (11/23/2018 4:53 AM PIPELINE WELDER) Hep A IgM HEPATITIS A TEST NEGATIVE Nonreactive [facility] Hep A IgG Nonreactive Nonreactive [facility] Specimen Blood Performing Organization Address [facility] Phone Number [facility] [phone] [place] Hepatitis C antibody (11/23/2018 4:53 AM PIPELINE WELDER) Hepatitis C Ab NON-REACTIVE Nonreactive [facility] Specimen Blood Performing Organization Address City/[facility]/Zipcode Phone Number [address] [phone] [place] Actin (Smooth Muscle) Antibody, IgG (11/23/2018 4:53 AM PIPELINE WELDER) Anti-Smooth Muscle Ab <20 See Note: U [...] Lab [facility] EZ [facility] [address] [address] Gilles Moss MD, PhD, LINA Performing Organization Address [facility] Phone Number [email or web address] [address] [place] [address] [id number] (11/23/2018 4:53 AM PIPELINE WELDER) A-1 Antitrypsin 202.70 (H) 90.00 - 200.00 mg/dL [facility] Specimen Blood Performing Organization Address City/[facility]/Zipcode Phone Number [address] [address] CENTER Ceruloplasmin (11/23/2018 4:53 AM PIPELINE WELDER) Ceruloplasmin 28 18 - 53 mg/dL [facility] Comment: Adults:Males: 18-36 mg/dL Females: 18-53 mg/dL Pediatrics:Males (mg/dL)Females (mg/dL) 0-30 Days 8-25 3-28 31 Days-11 Month [id number] 1-3 [id number] 4-6 [id number] 7-9 [id number] 10-12 [id number] 13-15 [id number] 16-18 [id number] The pediatric ranges are derived from the following criteria: Sacha MONACO, Juwan BARONE, Poornima Liu et al Pediatric reference ranges for Noyc-[id number] and ceruloplasmin. Clin. Chem 1997; 43:S1999 Pediatric Reference Ranges, 2nd., [place] Sachaet al. editors. [employer], [place], [place] 1997. Specimen Blood Narrative Performed At Performing Lab [email or web address] *[facility], [address] [place] [phone] Noe Rosario MD, PhD Performing Organization Address City/[facility] Phone Number [place] [address] [facility]POR[facility] [address] [facility] Alpha fetoprotein (AFP), tumor marker (11/23/2018 4:53 AM PIPELINE WELDER) Alpha-Fetoprotein 2.1 <10.0 ng/mL [facility] Specimen Blood Performing Organization Address City/[facility]/Zipcode Phone Number [address] [address] [phone] CENTER Ferritin (11/23/2018 4:53 AM PIPELINE WELDER) Ferritin 52 5 - 275 ng/mL [facility] Specimen Blood Performing Organization Address City/[facility]/Zipcode Phone Number [address] [address] CENTER PT/aPTT (11/22/2018 11:31 PM PIPELINE WELDER) Protime 13.3 11.7 - 14.7 seconds [facility] INR 1.0 <=5.9 [facility] PTT 26.9 22.5 - 36.0 seconds [facility] Specimen Blood Narrative Performed At RECOMMENDED COUMADIN/WARFARIN INR THERAPY [facility] RANGES STANDARD DOSE: 2.0 - 3.0 Includes: PROPHYLAXIS for venous thrombosis, systemic embolization; TREATMENT for venous thrombosis and/or pulmonary embolus. HIGH RISK: Target INR is 2.5-3.5 for patients with mechanical heart valves. Performing Organization Address City/State/Zipcode Phone Number [facility] [address] [place] [address] CENTER after 12/16/2017 Insurance Payer Benefit Plan / Group Subscriber ID Type Phone Address ANISA SHELL xxxxxxxxxxx Advance Directives For more information, please contact:[facility] [place] [address] [phone] Code Status Date Activated Date Inactivated Comments Full Code 11/22/2018 10:01 PM This code status was determined by: Patient
--- OUTSIDE RECORDS SUMMARY | 2018-12-17 10:10 | XMS REPORT ---
:1960 [facility] Address [address] [place] [address] Dr. Melton [address] [place] [id number] Care Team Providers Name Role Phone ZEB [...] Value Reference Range Comments SCAN RESULT (test [id number]) OSMOLALITY, [id number] 10:30:00 Test Item Value Reference Range Comments OSMOLALITY, SERUM (BEAKER) (test evoj=443) 301 mOsm/kg 275-295 POCT-GLUCOSE [id number] 08:26:00 Test Item Value Reference Range Comments POC-GLUCOSE METER (BEAKER) 243 mg/dL 70-[address] [facility] [address] [place] [address] (test xzwg=7858) [facility] [address] COMPREHENSIVE METABOLIC [id number] 08:05:00 Test Item Value Reference Range Comments TOTAL PROTEIN (BEAKER) 5.5 gm/dL 6.0-8.3 (test gdkw=085) ALBUMIN (BEAKER) (test 3.2 g/dL 3.5-5.0 ktlx=1214) ALKALINE PHOSPHATASE 75 U/L 40-150 (BEAKER) (test azaj=746) BILIRUBIN TOTAL (BEAKER) 0.9 mg/dL 0.2-1.2 (test ubbr=944) SODIUM (BEAKER) (test 132 meq/L 136-145 ieqg=793) POTASSIUM (BEAKER) (test 4.3 meq/L 3.5-5.1 mhhf=493) CHLORIDE (BEAKER) (test 101 meq/L 98-107 yyvn=459) CO2 (BEAKER) (test 25 meq/L 22-29 xpkv=250) BLOOD UREA NITROGEN 45 mg/dL 7-21 (BEAKER) (test uxtt=611) CREATININE (BEAKER) (test 1.89 mg/dL 0.57-1.25 zwrd=819) GLUCOSE RANDOM (BEAKER) 241 mg/dL 70-105 (test endn=104) CALCIUM (BEAKER) (test 8.6 mg/dL 8.4-10.2 knrt=068) AST (SGOT) (BEAKER) (test 19 U/L 5-34 nwca=779) ALT (SGPT) (BEAKER) (test 10 U/L 6-55 itxu=785) EGFR (BEAKER) (test 27 mL/min/1.73 sq m ESTIMATED GFR IS NOT eayu=7503) ACCURATE CREATININE CLEARANCE IN PREDICTING GLOMERULAR FILTRATION RATE. ESTIMATED GFR IS NOT APPLICABLE FOR DIALYSIS PATIENTS. [id number] 08:02:00 Test Item Value Reference Range Comments PHOSPHORUS (BEAKER) (test ktxs=911) 3.6 mg/dL 2.3-4.7 [id number] 08:02:00 Test Item Value Reference Range Comments MAGNESIUM (BEAKER) (test mqkx=023) 2.0 mg/dL 1.6-2.6 CBC W/PLT COUNT & AUTO [id number] 05:40:00 Test Item Value Reference Range Comments WHITE BLOOD CELL COUNT (BEAKER) (test opoc=222) 5.7 K/ L 3.5-10.5 RED BLOOD CELL COUNT (BEAKER) (test tfeb=063) 3.76 M/ L 3.93-5.22 HEMOGLOBIN (BEAKER) (test phpb=099) 10.6 GM/DL 11.2-15.7 HEMATOCRIT (BEAKER) (test exqi=452) 32.9 % 34.1-44.9 MEAN CORPUSCULAR VOLUME (BEAKER) (test iilf=202) 87.5 fL 79.4-94.8 MEAN CORPUSCULAR HEMOGLOBIN (BEAKER) (test 28.2 pg 25.6-32.2 vhez=124) MEAN CORPUSCULAR HEMOGLOBIN CONC (BEAKER) (test 32.2 GM/DL 32.2-35.5 lpyq=909) RED CELL DISTRIBUTION WIDTH (BEAKER) (test 14.2 % 11.7-14.4 lkuy=913) PLATELET COUNT (BEAKER) (test tjni=961) 142 K/CU MM 150-450 MEAN PLATELET VOLUME (BEAKER) (test jnoo=416) 9.8 fL 9.4-12.3 NUCLEATED RED BLOOD CELLS (BEAKER) (test 0 /100 WBC 0-0 ljhb=553) NEUTROPHILS RELATIVE PERCENT (BEAKER) (test 70 % gbfc=981) LYMPHOCYTES RELATIVE PERCENT (BEAKER) (test 19 % qrsf=727) MONOCYTES RELATIVE PERCENT (BEAKER) (test 7 % edvq=368) EOSINOPHILS RELATIVE PERCENT (BEAKER) (test 3 % rleo=738) BASOPHILS RELATIVE PERCENT (BEAKER) (test 1 % zicl=820) NEUTROPHILS ABSOLUTE COUNT (BEAKER) (test 3.99 K/ L 1.56-6.13 zwhd=438) LYMPHOCYTES ABSOLUTE COUNT (BEAKER) (test 1.05 K/ L 1.18-3.74 wiyf=165) MONOCYTES ABSOLUTE COUNT (BEAKER) (test 0.40 K/ L 0.24-0.36 kkcb=244) EOSINOPHILS ABSOLUTE COUNT (BEAKER) (test 0.16 K/ L 0.04-0.36 znju=075) BASOPHILS ABSOLUTE COUNT (BEAKER) (test 0.04 K/ L 0.01-0.08 ojzx=003) IMMATURE GRANULOCYTES-RELATIVE PERCENT (BEAKER) 0 % 0-1 (test yjvi=9384) CALCIUM, [id number] 05:17:00 Test Item Value Reference Range Comments CALCIUM IONIZED (BEAKER) (test lvsh=162) 1.06 mmol/L 1.12-1.27 PH, BLOOD (BEAKER) (test mxxg=2053) 7.41 U/S, RENAL, [id number] 03:59:00Reason for exam:->HEMALATHA/CKDShould this be performed at [...] Wilson Verified Date/Time: 11/24/2018 03:59:04 Reading Location: [facility] C013 Transitional Reading Room TROPONIN [id number] 23:19:00 Test Item Value Reference Range Comments TROPONIN I (BEAKER) (test wifg=627) < ng/mL 0.00-0.03 Troponin I (TnI) levels [...] acidosis, acute neurological disease, and persistent tachyarrhythmia.POCT-GLUCOSE [id number] 21:12:00 Test Item Value Reference Range Comments POC-GLUCOSE METER (BEAKER) 277 mg/dL 70-110 TESTED AT [address] (test kbjp=4931) [facility] [address] PROTEIN, RANDOM [id number] 20:11:00 Test Item Value Reference Range Comments PROTEIN, URINE (BEAKER) (test ofxl=7106) 10 mg/dL 0-14 SODIUM, RANDOM [id number] 20:05:00 Test Item Value Reference Range Comments SODIUM URINE (BEAKER) (test afjo=126) < meq/L Reference Range: No NormalsPOCT-GLUCOSE [id number] 17:28:00 Test Item Value Reference Range Comments POC-GLUCOSE METER (BEAKER) 291 mg/dL 70-110 TESTED AT [address] (test vfap=8529) [facility] [address] POCT-GLUCOSE [id number] 14:02:00 Test Item Value Reference Range Comments POC-GLUCOSE METER (BEAKER) 148 mg/dL 70-[address] [facility] [address] [place] (test wkfg=7920) [facility] [address] URINALYSIS W/ [id number] 13:32:00 Test Item Value Reference Range Comments COLOR (BEAKER) (test jnpl=312) Yellow CLARITY (BEAKER) (test yqlp=937) Clear SPECIFIC GRAVITY UA (BEAKER) (test 1.015 1.001-1.035 xweg=583) PH UA (BEAKER) (test crpn=922) 5.0 5.0-8.0 PROTEIN UA (BEAKER) (test qvxn=554) Negative Negative GLUCOSE UA (BEAKER) (test fmgy=022) Negative Negative KETONES UA (BEAKER) (test fipv=958) Negative Negative BILIRUBIN UA (BEAKER) (test dmgp=837) Negative Negative BLOOD UA (BEAKER) (test upeb=505) Negative Negative NITRITE UA (BEAKER) (test gnns=363) Negative Negative LEUKOCYTE ESTERASE UA (BEAKER) (test Negative Negative tsyf=602) UROBILINOGEN UA (BEAKER) (test wexa=822) 0.2 mg/dL 0.2-1.0 RBC UA (BEAKER) (test sppc=111) < /HPF WBC UA (BEAKER) (test rdjq=784) 2 /HPF BACTERIA (BEAKER) (test gykn=801) Occasional SQUAMOUS EPITHELIAL (BEAKER) (test 19 /HPF kiiv=300) HYALINE CASTS (BEAKER) (test rdkx=922) 5 /LPF AMORPHOUS CRYSTALS (BEAKER) (test Occasional hkfo=5371) SOURCE(BEAKER) (test ohmf=8355) Urine, Clean Catch U/S, ABDOMINAL, [id number] 13:29:00Abdomen limited area? Add comment if clarification [...] Valles Verified Date/Time: 11/23/2018 13:29:13 Reading Location: [address] Transitional Reading Room U/S, [id number] 13:01:00Reason for exam:->Therapeutic paracentesisFINAL REPORT Paracentesis dated 11/23/2018 Procedure: Ultrasound-guided paracentesis. Preprocedure diagnosis: Ascites Postprocedure diagnosis: Ascites Conscious sedation: None. Radiologist: Giovanni Haas M.D. Endocrinology Teacher: None Anesthesia: 1% Xylocaine mixed with sodium bicarbonate local anesthesia. Technique: After obtaining informed consent, ultrasound-guided paracentesis was performed under usual sterile technique. Using a 5 brazilian drainage catheter , puncture was made in the right lower quadrant abdomen. Approximately 16,200 cc of serous fluid was removed. Patient tolerated the procedure well without complication. Complication: None Graft/Implant: None Estimated Blood Loss: None Impression: Ultrasound-guided paracentesis. Signed: Giovanni Haas Verified Date/Time: 11/23/2018 13:01:25 Reading Location: [facility] C013X Ortho Consult Reading Room Electronically signedby: GIOVANNI HAAS M.D. on 2018 01:01 PMCBC W/PLT COUNT & AUTO [id number] 08:55:00 Test Item Value Reference Range Comments WHITE BLOOD CELL COUNT (BEAKER) (test wqpw=145) 5.7 K/ L 3.5-10.5 RED BLOOD CELL COUNT (BEAKER) (test grxf=252) 3.72 M/ L 3.93-5.22 HEMOGLOBIN (BEAKER) (test pgoz=548) 10.5 GM/DL 11.2-15.7 HEMATOCRIT (BEAKER) (test yihj=351) 32.5 % 34.1-44.9 MEAN CORPUSCULAR VOLUME (BEAKER) (test noef=267) 87.4 fL 79.4-94.8 MEAN CORPUSCULAR HEMOGLOBIN (BEAKER) (test 28.2 pg 25.6-32.2 hzqe=100) MEAN CORPUSCULAR HEMOGLOBIN CONC (BEAKER) (test 32.3 GM/DL 32.2-35.5 xhcr=075) RED CELL DISTRIBUTION WIDTH (BEAKER) (test 14.5 % 11.7-14.4 kkkt=116) PLATELET COUNT (BEAKER) (test iert=975) 148 K/CU MM 150-450 MEAN PLATELET VOLUME (BEAKER) (test pcmf=597) 9.4 fL 9.4-12.3 NUCLEATED RED BLOOD CELLS (BEAKER) (test 0 /100 WBC 0-0 uqqj=643) NEUTROPHILS RELATIVE PERCENT (BEAKER) (test 63 % xtgk=234) LYMPHOCYTES RELATIVE PERCENT (BEAKER) (test 23 % korb=208) MONOCYTES RELATIVE PERCENT (BEAKER) (test 8 % bxmg=063) EOSINOPHILS RELATIVE PERCENT (BEAKER) (test 5 % vttr=756) BASOPHILS RELATIVE PERCENT (BEAKER) (test 1 % mvva=235) NEUTROPHILS ABSOLUTE COUNT (BEAKER) (test 3.61 K/ L 1.56-6.13 gdzr=780) LYMPHOCYTES ABSOLUTE COUNT (BEAKER) (test 1.29 K/ L 1.18-3.74 htgy=047) MONOCYTES ABSOLUTE COUNT (BEAKER) (test 0.47 K/ L 0.24-0.36 vwdg=948) EOSINOPHILS ABSOLUTE COUNT (BEAKER) (test 0.28 K/ L 0.04-0.36 pemv=420) BASOPHILS ABSOLUTE COUNT (BEAKER) (test 0.05 K/ L 0.01-0.08 uniq=300) IMMATURE GRANULOCYTES-RELATIVE PERCENT (BEAKER) 0 % 0-1 (test vzgz=1786) POCT-GLUCOSE [id number] 07:43:00 Test Item Value Reference Range Comments POC-GLUCOSE METER (BEAKER) 196 mg/dL 70-[address] [facility] [address] [facility] (test dxap=2446) [facility] [address] [id number] 06:53:00 Test Item Value Reference Range Comments FERRITIN (BEAKER) (test yyjy=899) 52 ng/mL 5-275 HEPATITIS B [id number] 06:21:00 Test Item Value Reference Range Comments HEPATITIS B CORE TOTAL ANTIBODY (BEAKER) (test Nonreactive Nonreactive alkq=092) HEPATITIS B SURFACE ANTIBODY (BEAKER) (test < mIU/mL <8.0 qyhw=457) HEPATITIS B SURFACE ANTIGEN (2) (BEAKER) (test Nonreactive Nonreactive hbly=3679) HEPATITIS C [id number] 06:20:00 Test Item Value Reference Range Comments HEPATITIS C ANTIBODY (BEAKER) (test urav=925) Nonreactive Nonreactive HEPATITIS A [id number] 06:20:00 Test Item Value Reference Range Comments HEPATITIS A IGM ANTIBODY (BEAKER) (test Nonreactive Nonreactive yqib=780) HEPATITIS A IGG ANTIBODY (BEAKER) (test Nonreactive Nonreactive ihyx=3348) ALPHA FETOPROTEIN (AFP), TUMOR [id number] 06:14:00 Test Item Value Reference Range Comments ALPHA-FETOPROTEIN (BEAKER) (test llvy=6367) 2.1 ng/mL <10.0 COMPREHENSIVE METABOLIC [id number] 06:01:00 Test Item Value Reference Range Comments TOTAL PROTEIN (BEAKER) 5.9 gm/dL 6.0-8.3 (test szyh=332) ALBUMIN (BEAKER) (test 2.9 g/dL 3.5-5.0 jjvi=2842) ALKALINE PHOSPHATASE 96 U/L 40-150 (BEAKER) (test mhsb=753) BILIRUBIN TOTAL (BEAKER) 0.5 mg/dL 0.2-1.2 (test wwxo=758) SODIUM (BEAKER) (test 132 meq/L 136-145 djfs=795) POTASSIUM (BEAKER) (test 4.3 meq/L 3.5-5.1 dmya=499) CHLORIDE (BEAKER) (test 100 meq/L 98-107 tjcb=526) CO2 (BEAKER) (test 26 meq/L 22-29 ghgq=718) BLOOD UREA NITROGEN 50 mg/dL 7-21 (BEAKER) (test gzop=086) CREATININE (BEAKER) (test 2.27 mg/dL 0.57-1.25 nczu=329) GLUCOSE RANDOM (BEAKER) 219 mg/dL 70-105 (test ufza=375) CALCIUM (BEAKER) (test 8.8 mg/dL 8.4-10.2 pyth=759) AST (SGOT) (BEAKER) (test 22 U/L 5-34 dprh=515) ALT (SGPT) (BEAKER) (test 15 U/L 6-55 klhn=763) EGFR (BEAKER) (test 22 mL/min/1.73 sq m ESTIMATED GFR IS NOT fuzb=9675) ACCURATE CREATININE CLEARANCE IN PREDICTING GLOMERULAR FILTRATION RATE. ESTIMATED GFR IS NOT APPLICABLE FOR DIALYSIS PATIENTS. IRON, TIBC, % SAT. (WITHOUT FERRITIN)2018-11-23 05:55:00 Test Item Value Reference Range Comments IRON (BEAKER) (test pfay=506) 46.0 ug/dL 40.0-160.0 TOTAL IRON BINDING CAPACITY (BEAKER) (test 269 ug/dL 250-450 xejh=380) IRON % SATURATION (2) (BEAKER) (test tfbs=3614) 17 % 20-55 [id number]-3-[id number] 05:54:00 Test Item Value Reference Range Comments ALPHA-1 ANTITRYPSIN (BEAKER) (test kkln=434) 202.70 mg/dL 90.00-200.00 COMPREHENSIVE METABOLIC [id number] 00:16:00 Test Item Value Reference Range Comments TOTAL PROTEIN (BEAKER) 6.8 gm/dL 6.0-8.3 (test acvh=544) ALBUMIN (BEAKER) (test 3.3 g/dL 3.5-5.0 npra=3283) ALKALINE PHOSPHATASE 114 U/L 40-150 (BEAKER) (test vzon=572) BILIRUBIN TOTAL (BEAKER) 0.6 mg/dL 0.2-1.2 (test vsbs=378) SODIUM (BEAKER) (test 130 meq/L 136-145 bmeb=021) POTASSIUM (BEAKER) (test 4.4 meq/L 3.5-5.1 firv=141) CHLORIDE (BEAKER) (test 99 meq/L 98-107 ktlv=481) CO2 (BEAKER) (test 22 meq/L 22-29 jlma=807) BLOOD UREA NITROGEN 46 mg/dL 7-21 (BEAKER) (test sfla=092) CREATININE (BEAKER) (test 2.40 mg/dL 0.57-1.25 lfni=920) GLUCOSE RANDOM (BEAKER) 153 mg/dL 70-105 (test wumv=547) CALCIUM (BEAKER) (test 9.1 mg/dL 8.4-10.2 poor=522) AST (SGOT) (BEAKER) (test 25 U/L 5-34 yvhn=030) ALT (SGPT) (BEAKER) (test 17 U/L 6-55 nxsm=639) EGFR (BEAKER) (test 21 mL/min/1.73 sq m ESTIMATED GFR IS NOT usut=9350) ACCURATE CREATININE CLEARANCE IN PREDICTING GLOMERULAR FILTRATION RATE. ESTIMATED GFR IS NOT APPLICABLE FOR DIALYSIS PATIENTS. [id number] 23:52:00 Test Item Value Reference Range Comments PROTIME (BEAKER) (test nzzk=370) 13.3 seconds 11.7-14.7 INR (BEAKER) (test enfg=731) 1.0 <=5.9 PARTIAL THROMBOPLASTIN TIME (BEAKER) (test 26.9 seconds 22.5-36.0 mxpn=002) RECOMMENDED COUMADIN/WARFARIN INR THERAPY RANGESSTANDARD DOSE: 2.0 - 3.0 Includes: PROPHYLAXIS forvenous thrombosis, systemic embolization; TREATMENT for venous thrombosis and/or pulmonary embolus.HIGH RISK: Target INR is 2.5-3.5 for patients with mechanical heart valves.POCT-GLUCOSE [id number] 21:25:00 Test Item Value Reference Range Comments POC-GLUCOSE METER (BEAKER) 178 mg/dL 70-[address] [facility] [address] [place] (test sgex=1590) [facility] [address]
[2018-12-17] MEDS ORDERED: ALBUMIN HUMAN 25% 100 ML IV ONE (12:30)
--- NOTE | 2018-12-17 12:35 | RAD REPORT ---
EXAM DESCRIPTION: US - Paracentesis Proc Guidance - 12/17/2018 11:29 am CLINICAL HISTORY: Liver disease with ascites FINDINGS: The risks, benefits and alternatives to the procedure were explained to the patient and in formed consent obtained. The skin and subcutaneous tissues were anesthetized with Lidocaine. Under sonographic guidance an 8 F rench catheter was placed into the right lower quadrant. 10 liters of yellow fluid was removed The patient experienced no immediate complication. IMPRESSION: Paracentesis
== END 2018-12-17 13:47 | disposition home or self-care (01) ==
LOC: DS 09:39
PROVIDERS: ATTEND Internal Medicine Gastroenterology
DX: K74.69 Other cirrhosis of liver (principal); R18.8 Other ascites
CPT/HCPCS: 49083; 96365; P9047

== ENCOUNTER 2018-12-23 07:05 | Day surgery (SDC) | payer OTHER ==
--- OUTSIDE RECORDS SUMMARY | 2018-12-23 07:15 | XMS REPORT | Clinical Summary ---
:1960 Author Organization [facility] Address [address] [place] [address] Care Team Providers Name Role Phone Unavailable [...] WYNN (HCC); MD Andrea Morbid obesity (HCC); Destinye Esqueda Hepatorenal syndrome (HCC); MD Abebe Hyperkalemia; Portal hypertension (HCC); CKD (chronic kidney disease) stage 4, GFR 15-29 ml/min (HCC); Secondary esophageal varices without bleeding (HCC); Diabetes mellitus type 2 in obese (HCC) after 12/22/2017 Immunizations Name Dates Previously Given Next Due [...] Taken Blood Pressure 100/50 11/24/2018 11:07 AM TELECOMMUNICATOR SUPERVISOR Pulse 85 11/24/2018 11:07 AM TELECOMMUNICATOR SUPERVISOR Temperature 36.3 C (97.3 F) 11/24/2018 11:07 AM TELECOMMUNICATOR SUPERVISOR Respiratory Rate 19 11/24/2018 11:07 AM TELECOMMUNICATOR SUPERVISOR Oxygen Saturation 93% 11/24/2018 11:07 AM TELECOMMUNICATOR SUPERVISOR Inhaled Oxygen Concentration 21% 11/24/2018 2:46 AM TELECOMMUNICATOR SUPERVISOR Weight 108.5 kg (239 lb 4.8 oz) 11/24/2018 7:00 AM TELECOMMUNICATOR SUPERVISOR Height 162.6 cm (5' 4") 11/22/2018 7:09 PM TELECOMMUNICATOR SUPERVISOR Body Mass Index 41.08 11/24/2018 7:00 AM TELECOMMUNICATOR SUPERVISOR Plan of Treatment Not on file Procedures Procedure Name Priority Date/Time Associated Comments Diagnosis RHYTHM STRIP - SCAN 12/13/2018 7:50 AM TELECOMMUNICATOR SUPERVISOR POCT-GLUCOSE METER Routine 11/24/2018 7:49 Results for this AM TELECOMMUNICATOR SUPERVISOR procedure are in the results section. CBC W/PLT COUNT & AUTO Routine 11/24/2018 4:27 Results for this DIFFERENTIAL AM TELECOMMUNICATOR SUPERVISOR procedure are in the results section. OSMOLALITY, SERUM Routine 11/24/2018 4:27 Results for this AM TELECOMMUNICATOR SUPERVISOR procedure are in the results section. PHOSPHORUS Routine 11/24/2018 4:27 Results for this AM TELECOMMUNICATOR SUPERVISOR procedure are in the results section. MAGNESIUM Routine 11/24/2018 4:27 Results for this AM TELECOMMUNICATOR SUPERVISOR procedure are in the results section. CALCIUM, IONIZED Routine 11/24/2018 4:27 Results for this AM TELECOMMUNICATOR SUPERVISOR procedure are in the results section. CBC W/PLT COUNT & AUTO Routine 11/24/2018 4:27 Results for this DIFFERENTIAL AM TELECOMMUNICATOR SUPERVISOR procedure are in the results section. COMPREHENSIVE Routine 11/24/2018 4:27 Results for this METABOLIC PANEL AM TELECOMMUNICATOR SUPERVISOR procedure are in the results section. US RENAL COMPLETE Routine 11/24/2018 3:20 Results for this AM TELECOMMUNICATOR SUPERVISOR procedure are in the results section. TROPONIN I Routine 11/23/2018 9:41 Results for this PM TELECOMMUNICATOR SUPERVISOR procedure are in the results section. ECG 12-LEAD Routine 11/23/2018 9:19 PM TELECOMMUNICATOR SUPERVISOR Procedure Note - Interface, External Ris In - 11/23/2018 9:22 PM TELECOMMUNICATOR SUPERVISOR Ventricular Rate 77 BPM Atrial Rate 77 BPM P-R Interval 172 ms QRS Duration 80 ms Q-T Interval 392 ms QTC Calculation(Bazett) 443 ms P [place] 44 degrees R [place] -47 degrees T [place] 50 degrees Normal sinus rhythm Left axis deviation Low voltage QRS Cannot rule out Anterior infarct , age undetermined Abnormal ECG No previous ECGs available ECG 12-LEAD STAT 11/23/2018 9:19 PM TELECOMMUNICATOR SUPERVISOR POCT-GLUCOSE METER Routine 11/23/2018 8:44 PM TELECOMMUNICATOR SUPERVISOR SODIUM, RANDOM URINE Routine 11/23/2018 7:01 PM TELECOMMUNICATOR SUPERVISOR PROTEIN, RANDOM URINE Routine 11/23/2018 7:01 PM TELECOMMUNICATOR SUPERVISOR POCT-GLUCOSE METER Routine 11/23/2018 5:17 PM TELECOMMUNICATOR SUPERVISOR POCT-GLUCOSE METER Routine 11/23/2018 2:01 PM TELECOMMUNICATOR SUPERVISOR US ABDOMEN LIMITED Routine 11/23/2018 1:05 PM TELECOMMUNICATOR SUPERVISOR US PARACENTESIS Routine 11/23/2018 12:48 PM TELECOMMUNICATOR SUPERVISOR URINALYSIS W/ MICROSCOPIC Routine 11/23/2018 10:58 AM TELECOMMUNICATOR SUPERVISOR CBC W/PLT COUNT & AUTO Routine 11/23/2018 8:40 AM TELECOMMUNICATOR SUPERVISOR Results for this DIFFERENTIAL procedure are in the results section. CBC W/PLT COUNT & AUTO Routine 11/23/2018 8:40 AM TELECOMMUNICATOR SUPERVISOR Results for this DIFFERENTIAL procedure are in the results section. POCT-GLUCOSE METER Routine 11/23/2018 7:02 AM TELECOMMUNICATOR SUPERVISOR ALPHA FETOPROTEIN (AFP), Routine 11/23/2018 4:53 AM TELECOMMUNICATOR SUPERVISOR Results for this TUMOR MARKER procedure are in the results section. HEPATITIS A PANEL Routine 11/23/2018 4:53 AM TELECOMMUNICATOR SUPERVISOR HEPATITIS B PANEL Routine 11/23/2018 4:53 AM TELECOMMUNICATOR SUPERVISOR HEPATITIS C ANTIBODY Routine 11/23/2018 4:53 AM TELECOMMUNICATOR SUPERVISOR ACTIN (SMOOTH MUSCLE) Routine 11/23/2018 4:53 AM TELECOMMUNICATOR SUPERVISOR Results for this ANTIBODY, IGG procedure are in the results section. ANTI-MITOCHONDRIAL AB, Routine 11/23/2018 4:53 AM TELECOMMUNICATOR SUPERVISOR REFLEX TO TITER [id number]\\, SERUM Routine 11/23/2018 4:53 AM TELECOMMUNICATOR SUPERVISOR CERULOPLASMIN Routine 11/23/2018 4:53 AM TELECOMMUNICATOR SUPERVISOR FERRITIN Routine 11/23/2018 4:53 AM TELECOMMUNICATOR SUPERVISOR IRON, TIBC, % SAT. (WITHOUT Routine 11/23/2018 4:53 AM TELECOMMUNICATOR SUPERVISOR Results for this FERRITIN) procedure are in the results section. COMPREHENSIVE METABOLIC Routine 11/23/2018 4:53 AM TELECOMMUNICATOR SUPERVISOR Results for this PANEL procedure are in the results section. PT/APTT Routine 11/22/2018 11:31 PM TELECOMMUNICATOR SUPERVISOR COMPREHENSIVE METABOLIC Routine 11/22/2018 11:31 PM TELECOMMUNICATOR SUPERVISOR Results for this PANEL procedure are in the results section. POCT-GLUCOSE METER Routine 11/22/2018 8:52 PM TELECOMMUNICATOR SUPERVISOR after 12/22/2017 Results RHYTHM STRIP - SCAN (12/13/2018 7:50 AM TELECOMMUNICATOR SUPERVISOR) Narrative Performed At POC-Glucose meter (11/24/2018 7:49 AM TELECOMMUNICATOR SUPERVISOR)Only the most recent of6 resultswithin the time period is included. POC-Glucose Meter 243 (H)Comment: TESTED AT 70 - 110 mg/dL [facility] [address] [facility] [address] Specimen Blood Performing Organization Address City/State/Zipcode Phone Number [address] [address] [phone] CENTER Calcium, Ionized (11/24/2018 4:27 AM TELECOMMUNICATOR SUPERVISOR) Calcium, Ion 1.06 (L) 1.12 - 1.27 mmol/L [facility] pH, Blood 7.41 [facility] Specimen Blood Performing Organization Address City/State/Zipcode Phone Number [facility] [address] [place] [address] [phone] CENTER CBC with platelet count + automated diff (11/24/2018 4:27 AM TELECOMMUNICATOR SUPERVISOR)Only the most recent of2 resultswithin the time period is included. WBC 5.7 3.5 - 10.5 K/L [facility] RBC 3.76 (L) 3.93 - 5.22 M/L [facility] Hemoglobin 10.6 (L) 11.2 - 15.7 GM/DL [facility] Hematocrit 32.9 (L) 34.1 - 44.9 % [facility] MCV 87.5 79.4 - 94.8 fL [facility] MCH 28.2 25.6 - 32.2 pg [facility] MCHC 32.2 32.2 - 35.5 GM/DL [facility] RDW 14.2 11.7 - 14.4 % [facility] Platelets 142 (L) 150 - 450 K/CU MM [facility] MPV 9.8 9.4 - 12.3 fL [facility] nRBC 0 0 - 0 /100 WBC [facility] % Neutros 70 % [facility] % Lymphs 19 % [facility] % Monos 7 % [facility] % Eos 3 % [facility] % Baso 1 % [facility] # Neutros 3.99 1.56 - 6.13 K/L [facility] # Lymphs 1.05 (L) 1.18 - 3.74 K/L [facility] # Monos 0.40 (H) 0.24 - 0.36 K/L [facility] # Eos 0.16 0.04 - 0.36 K/L [facility] # Baso 0.04 0.01 - 0.08 K/L [facility] Immature Granulocytes-Relative 0 0 - 1 % [facility] Specimen Blood Performing Organization Address City/[facility] Phone Number [address] [address] [phone] CENTER Phosphorus (11/24/2018 4:27 AM TELECOMMUNICATOR SUPERVISOR) Phosphorus 3.6 2.3 - 4.7 mg/dL [facility] Specimen Blood Performing Organization Address [facility] Phone Number [address] [address] [place] Osmolality, serum (11/24/2018 4:27 AM TELECOMMUNICATOR SUPERVISOR) Osmolality Serum 301 (H) 275 - 295 mOsm/kg [facility] Specimen Blood Performing Organization Address [facility] Phone Number [address] [address] [place] Magnesium (11/24/2018 4:27 AM TELECOMMUNICATOR SUPERVISOR) Magnesium 2.0 1.6 - 2.6 mg/dL [facility] Specimen Blood Performing Organization Address [facility] Phone Number [address] [address] [place] Comprehensive metabolic panel (11/24/2018 4:27 AM TELECOMMUNICATOR SUPERVISOR)Only the most recent of3 resultswithin the time period is included. Protein, Total 5.5 (L) 6.0 - 8.3 gm/dL [facility] Albumin 3.2 (L) 3.5 - 5.0 g/dL [facility] Alkaline Phosphatase 75 40 - 150 U/L [facility] Total Bilirubin 0.9 0.2 - 1.2 mg/dL [facility] Sodium 132 (L) 136 - 145 meq/L [facility] Potassium 4.3 3.5 - 5.1 meq/L [facility] Chloride 101 98 - 107 meq/L [facility] CO2 25 22 - 29 meq/L [facility] BUN 45 (H) 7 - 21 mg/dL [facility] Creatinine 1.89 (H) 0.57 - 1.25 mg/dL [facility] Glucose 241 (H) 70 - 105 mg/dL [facility] Calcium 8.6 8.4 - 10.2 mg/dL [facility] AST 19 5 - 34 U/L [facility] ALT 10 6 - 55 U/L [facility] EGFR 27Comment: ESTIMATED GFR mL/min/1.73 sq m [facility] IS NOT ACCURATE [facility] CREATININE CLEARANCE IN PREDICTING GLOMERULAR FILTRATION RATE. ESTIMATED GFR IS NOT APPLICABLE FOR DIALYSIS PATIENTS. Specimen Blood Performing Organization Address City/State/Zipcode Phone Number [facility] [address] [place] [address] CENTER renal complete (11/24/2018 3:20 AM TELECOMMUNICATOR SUPERVISOR) Narrative Performed At FINAL REPORT [facility] U/S, RENAL, COMPLETE CLINICAL INDICATION:HEMALATHA/CKD COMPARISON: None [...] MD Report Verified Date/Time:11/24/2018 03:59:04 Reading Location: [address] Transitional Reading Room Procedure Note Interface, External Ris In - 11/24/2018 4:01 AM TELECOMMUNICATOR SUPERVISOR FINAL REPORT U/S, RENAL, COMPLETE CLINICAL INDICATION: [...] Report Verified Date/Time: 11/24/2018 03:59:04 Reading Location: [address] Transitional Reading Room Performing Organization Address City/State/Zipcode Phone Number [facility] Troponin I (11/23/2018 9:41 PM TELECOMMUNICATOR SUPERVISOR) Troponin I <0.01 0.00 - 0.03 ng/mL [facility] Specimen Blood Narrative Performed At Troponin I (TnI) levels must be interpreted [facility] in the context of the presenting symptoms [...] tachyarrhythmia. Performing Organization Address City/State/Zipcode Phone Number [address] [address] [place] ECG 12 lead (11/23/2018 9:19 PM TELECOMMUNICATOR SUPERVISOR) Narrative Performed At Ventricular Rate 77 BPM GE MUSE Atrial Rate 77 BPM P-R Interval 172 ms QRS Duration 80 ms Q-T Interval 392 ms QTC Calculation(Bazett) 443 ms P [place] 44 degrees R [place] -47 degrees T [place] 50 degrees Normal sinus rhythm Left axis deviation Low voltage QRS Cannot rule out Anterior infarct , age undetermined Abnormal ECG No previous ECGs available Confirmed by MD TRAMMELL JOSEPH P ([id number]) on 11/24/2018 6:45:48 AM Procedure Note Interface, External Ris In - 11/24/2018 6:45 AM TELECOMMUNICATOR SUPERVISOR Ventricular Rate 77 BPM Atrial Rate 77 BPM P-R Interval 172 ms QRS Duration 80 ms Q-T Interval 392 ms QTC Calculation(Bazett) 443 ms P [place] 44 degrees R [place] -47 degrees [place] 50 degrees Normal sinus rhythm Left axis deviation Low voltage QRS Cannot rule out Anterior infarct , age undetermined Abnormal ECG No previous ECGs available Confirmed by MD TRAMMELL JOSEPH P ([id number]) on 11/24/2018 6:45:48 AM Performing Organization Address [facility] Phone Number GE MUSE Sodium, random urine (11/23/2018 7:01 PM TELECOMMUNICATOR SUPERVISOR) Sodium Urine <20 meq/L [facility] Specimen Urine Narrative Performed At Reference Range: No Normals [facility] Performing Organization Address City/[facility]/Zipcode Phone Number [address] [address] [place] Protein, random urine (11/23/2018 7:01 PM TELECOMMUNICATOR SUPERVISOR) Protein, Urine 10 0 - 14 mg/dL [facility] Specimen Urine Performing Organization Address [facility]/Zipcode Phone Number [address] [address] [facility] abdomen limited (11/23/2018 1:05 PM TELECOMMUNICATOR SUPERVISOR) Narrative Performed At FINAL REPORT [facility] ULTRASOUND RIGHT UPPER QUADRANT OF THE ABDOMEN [...] MD Report Verified Date/Time:11/23/2018 13:29:13 Reading Location: [address] Transitional Reading Room Procedure Note Interface, External Ris In - 11/23/2018 1:31 PM TELECOMMUNICATOR SUPERVISOR FINAL REPORT ULTRASOUND RIGHT UPPER QUADRANT OF [...] Report Verified Date/Time: 11/23/2018 13:29:13 Reading Location: [place] [id number] Transitional Reading Room Performing Organization Address City/State/Zipcode Phone Number [employer] US paracentesis (11/23/2018 12:48 PM TELECOMMUNICATOR SUPERVISOR) Narrative Performed At FINAL REPORT [employer] Paracentesis dated 11/23/2018 Procedure: Ultrasound-guided paracentesis. Preprocedure diagnosis: Ascites Postprocedure diagnosis: Ascites Conscious sedation: None. Radiologist: Giovanni Haas M.D. Back Digger Operator: None Anesthesia: 1% Xylocaine mixed with sodium bicarbonate local anesthesia. Technique: After obtaining informed consent, ultrasound-guided paracentesis was performed under usual sterile technique. Using a 5 trinidadian drainage catheter, puncture was made in the right lower quadrant abdomen. Approximately 16,200 cc of serous fluid was removed. Patient tolerated the procedure well without complication. Complication: None Graft/Implant: None Estimated Blood Loss: None Impression: Ultrasound-guided paracentesis. Signed: Giovanni Haas MD Report Verified Date/Time:11/23/2018 13:01:25 Reading Location: [facility] [id number] Ortho Consult Reading Room Procedure Note Interface, External [facility] In - 11/23/2018 1:03 PM TELECOMMUNICATOR SUPERVISOR FINAL REPORT Paracentesis dated 11/23/2018 Procedure: Ultrasound-guided paracentesis. Preprocedure diagnosis: Ascites Postprocedure diagnosis: Ascites Conscious sedation: None. Radiologist: Giovanni Haas M.D. Back Digger Operator: None Anesthesia: 1% Xylocaine mixed with sodium bicarbonate local anesthesia. Technique: After obtaining informed consent, ultrasound-guided paracentesis was performed under usual sterile technique. Using a 5 trinidadian drainage catheter, puncture was made in the right lower quadrant abdomen. Approximately 16,200 cc of serous fluid was removed. Patient tolerated the procedure well without complication. Complication: None Graft/Implant: None Estimated Blood Loss: None Impression: Ultrasound-guided paracentesis. Signed: Giovanni Haas MD Report Verified Date/Time: 11/23/2018 13:01:25 Reading Location: [facility] B1 [id number] Ortho Consult Reading Room Performing Organization Address City/State/Zipcode Phone Number [facility]IS Urinalysis w/ Microscopic (11/23/2018 10:58 AM TELECOMMUNICATOR SUPERVISOR) Color, UA Yellow [facility] Clarity, UA Clear [facility] Specific [place], UA 1.015 1.001 - 1.035 [facility] pH, UA 5.0 5.0 - 8.0 [facility] Protein, UA Negative Negative [facility] Glucose, UA Negative Negative [facility] Ketones, UA Negative Negative [facility] Bilirubin, UA Negative Negative [facility] Blood, UA Negative Negative [facility] Nitrite, UA Negative Negative [facility] Leukocytes, UA Negative Negative [facility] Urobilinogen, UA 0.2 0.2 - 1.0 mg/dL [facility] RBC, UA <1 /HPF [facility] WBC, UA 2 /HPF [facility] Bacteria, UA Occasional [facility] Squam Epithel, UA 19 /HPF [facility] Hyaline Casts, UA 5 /LPF [facility] Amorphous Crystals Occasional [facility] Specimen Source Urine, Clean Catch [facility] Specimen Urine - Urine, Clean Catch Performing Organization Address [facility] Phone Number [address] [address] [phone] [place] Anti-Mitochondrial Ab, reflex to titer (11/23/2018 4:53 AM TELECOMMUNICATOR SUPERVISOR) Scan Result [facility] Specimen Blood Narrative Performed At Performing Organization Address City/[facility]ode Phone Number [place] [id number] [place] [address] Iron, TIBC, % sat. (without ferritin) (11/23/2018 4:53 AM TELECOMMUNICATOR SUPERVISOR) Iron 46.0 40.0 - 160.0 ug/dL [facility] TIBC 269 250 - 450 ug/dL [facility] Iron % Saturation 17 (L) 20 - 55 % [facility] Specimen Blood Performing Organization Address [facility] Phone Number [address] [address] [place] Hepatitis B Panel (11/23/2018 4:53 AM TELECOMMUNICATOR SUPERVISOR) Hep B Core Total Ab NON-REACTIVE Nonreactive [facility] Hep B S Ab <8.0 <8.0 mIU/mL [facility] hepatitis B Surface Ag NON-REACTIVE Nonreactive [facility] Specimen Blood Performing Organization Address [facility]/Zipcode Phone Number [address] [address] [phone] [place] Hepatitis A Panel (11/23/2018 4:53 AM TELECOMMUNICATOR SUPERVISOR) Hep A IgM HEPATITIS A TEST NEGATIVE Nonreactive [facility] Hep A IgG Nonreactive Nonreactive [facility] Specimen Blood Performing Organization Address [facility] Cent[facility]ode Phone Number [facility] [address] [phone] [place] Hepatitis C antibody (11/23/2018 4:53 AM TELECOMMUNICATOR SUPERVISOR) Hepatitis C Ab NON-REACTIVE Nonreactive [facility] Specimen Blood Performing Organization Address City/[facility]/Zipcode Phone Number [address] [phone] [place] Actin (Smooth Muscle) Antibody, IgG (11/23/2018 4:53 AM TELECOMMUNICATOR SUPERVISOR) Anti-Smooth Muscle Ab <20 See Note: U [...] Lab [facility] E[facility] [address] [address] Gilles Moss MD, PhD, LINA Performing Organization Address [facility] Phone Number [place] [address] [place] [address] [id number] (11/23/2018 4:53 AM TELECOMMUNICATOR SUPERVISOR) A-1 Antitrypsin 202.70 (H) 90.00 - 200.00 mg/dL [facility] Specimen Blood Performing Organization Address City/[facility]/Zipcode Phone Number [address] [address] [phone] CENTER Ceruloplasmin (11/23/2018 4:53 AM TELECOMMUNICATOR SUPERVISOR) Ceruloplasmin 28 18 - 53 mg/dL [facility] Comment: Adults:Males: 18-36 mg/dL Females: 18-53 mg/dL Pediatrics:Males (mg/dL)Females (mg/dL) 0-30 Days 8-25 3-28 31 Days-11 Month [id number] 1-3 [id number] 4-6 [id number] 7-9 [id number] 10-12 [id number] 13-15 [id number] 16-18 [id number] The pediatric ranges are derived from the following criteria: Sacha MONACO, Juwan BARONE, Poornima Liu et al Pediatric reference ranges for Jtdq-6-Frbzgncozlzsm and ceruloplasmin. Clin. Chem 1997; 43:S1999 Pediatric Reference Ranges, 2nd., [place] Sachaet al. editors. [employer], [place], [place] 1997. Specimen Blood Narrative Performed At Performing Lab [facility] *[facility], [address] [place] [phone] Noe Rosario MD, PhD Performing Organization Address City/[facility] Cent[facility]ode Phone Number [place] [address] [facility] [address] [facility] Alpha fetoprotein (AFP), tumor marker (11/23/2018 4:53 AM TELECOMMUNICATOR SUPERVISOR) Alpha-Fetoprotein 2.1 <10.0 ng/mL [facility] Specimen Blood Performing Organization Address City/[facility]/Zipcode Phone Number [address] [address] CENTER Ferritin (11/23/2018 4:53 AM TELECOMMUNICATOR SUPERVISOR) Ferritin 52 5 - 275 ng/mL [facility] Specimen Blood Performing Organization Address City/[facility]/Zipcode Phone Number [address] [address] CENTER PT/aPTT (11/22/2018 11:31 PM TELECOMMUNICATOR SUPERVISOR) Protime 13.3 11.7 - 14.7 seconds [facility] INR 1.0 <=5.9 [facility] PTT 26.9 22.5 - 36.0 seconds [facility] Specimen Blood Narrative Performed At RECOMMENDED COUMADIN/WARFARIN INR THERAPY [facility] RANGES STANDARD DOSE: 2.0 - 3.0 Includes: PROPHYLAXIS for venous thrombosis, systemic embolization; TREATMENT for venous thrombosis and/or pulmonary embolus. HIGH RISK: Target INR is 2.5-3.5 for patients with mechanical heart valves. Performing Organization Address City/State/Zipcode Phone Number [facility] [address] [place] [address] CENTER after 12/22/2017 Insurance Payer Benefit Plan / Group Subscriber ID Type Phone Address ANISA SHELL xxxxxxxxxxx Advance Directives For more information, please contact:[facility] [place] [address] [phone] Code Status Date Activated Date Inactivated Comments Full Code 11/22/2018 10:01 PM This code status was determined by: Patient
--- OUTSIDE RECORDS SUMMARY | 2018-12-23 07:15 | XMS REPORT ---
:1960 Author Organization [facility] Address [address] [place] [address] Dr. Melton [address] [place] [id number] Care Team Providers Name Role Phone ZEB [...] Value Reference Range Comments SCAN RESULT (test keub=[id number]) OSMOLALITY, [id number] 10:30:00 Test Item Value Reference Range Comments OSMOLALITY, SERUM (BEAKER) (test wzlq=588) 301 mOsm/kg 275-295 POCT-GLUCOSE [id number] 08:26:00 Test Item Value Reference Range Comments POC-GLUCOSE METER (BEAKER) 243 mg/dL 70-110 TESTED AT [facility] [address] [place] [address] (test svug=3085) [facility] [address] COMPREHENSIVE METABOLIC [id number] 08:05:00 Test Item Value Reference Range Comments TOTAL PROTEIN (BEAKER) 5.5 gm/dL 6.0-8.3 (test kkws=099) ALBUMIN (BEAKER) (test 3.2 g/dL 3.5-5.0 gudr=0434) ALKALINE PHOSPHATASE 75 U/L 40-150 (BEAKER) (test lfmj=353) BILIRUBIN TOTAL (BEAKER) 0.9 mg/dL 0.2-1.2 (test pncg=694) SODIUM (BEAKER) (test 132 meq/L 136-145 trqe=137) POTASSIUM (BEAKER) (test 4.3 meq/L 3.5-5.1 kssw=493) CHLORIDE (BEAKER) (test 101 meq/L 98-107 lgnd=009) CO2 (BEAKER) (test 25 meq/L 22-29 ypgd=481) BLOOD UREA NITROGEN 45 mg/dL 7-21 (BEAKER) (test cirg=843) CREATININE (BEAKER) (test 1.89 mg/dL 0.57-1.25 xnqk=213) GLUCOSE RANDOM (BEAKER) 241 mg/dL 70-105 (test nhps=720) CALCIUM (BEAKER) (test 8.6 mg/dL 8.4-10.2 hjyy=006) AST (SGOT) (BEAKER) (test 19 U/L 5-34 ntpr=178) ALT (SGPT) (BEAKER) (test 10 U/L 6-55 ifoh=948) EGFR (BEAKER) (test 27 mL/min/1.73 sq m ESTIMATED GFR IS NOT uthd=4381) ACCURATE CREATININE CLEARANCE IN PREDICTING GLOMERULAR FILTRATION RATE. ESTIMATED GFR IS NOT APPLICABLE FOR DIALYSIS PATIENTS. [id number] 08:02:00 Test Item Value Reference Range Comments PHOSPHORUS (BEAKER) (test qpvz=694) 3.6 mg/dL 2.3-4.7 [id number] 08:02:00 Test Item Value Reference Range Comments MAGNESIUM (BEAKER) (test egls=469) 2.0 mg/dL 1.6-2.6 CBC W/PLT COUNT & AUTO [id number] 05:40:00 Test Item Value Reference Range Comments WHITE BLOOD CELL COUNT (BEAKER) (test uiyq=672) 5.7 K/ L 3.5-10.5 RED BLOOD CELL COUNT (BEAKER) (test rsud=537) 3.76 M/ L 3.93-5.22 HEMOGLOBIN (BEAKER) (test shqj=998) 10.6 GM/DL 11.2-15.7 HEMATOCRIT (BEAKER) (test oamn=389) 32.9 % 34.1-44.9 MEAN CORPUSCULAR VOLUME (BEAKER) (test dgih=743) 87.5 fL 79.4-94.8 MEAN CORPUSCULAR HEMOGLOBIN (BEAKER) (test 28.2 pg 25.6-32.2 swlv=856) MEAN CORPUSCULAR HEMOGLOBIN CONC (BEAKER) (test 32.2 GM/DL 32.2-35.5 jeto=999) RED CELL DISTRIBUTION WIDTH (BEAKER) (test 14.2 % 11.7-14.4 nhdc=763) PLATELET COUNT (BEAKER) (test zbaw=487) 142 K/CU MM 150-450 MEAN PLATELET VOLUME (BEAKER) (test mjcr=877) 9.8 fL 9.4-12.3 NUCLEATED RED BLOOD CELLS (BEAKER) (test 0 /100 WBC 0-0 ehma=089) NEUTROPHILS RELATIVE PERCENT (BEAKER) (test 70 % bydg=168) LYMPHOCYTES RELATIVE PERCENT (BEAKER) (test 19 % mjeb=817) MONOCYTES RELATIVE PERCENT (BEAKER) (test 7 % rmqs=062) EOSINOPHILS RELATIVE PERCENT (BEAKER) (test 3 % mxjo=334) BASOPHILS RELATIVE PERCENT (BEAKER) (test 1 % mbor=506) NEUTROPHILS ABSOLUTE COUNT (BEAKER) (test 3.99 K/ L 1.56-6.13 dexl=336) LYMPHOCYTES ABSOLUTE COUNT (BEAKER) (test 1.05 K/ L 1.18-3.74 chwn=416) MONOCYTES ABSOLUTE COUNT (BEAKER) (test 0.40 K/ L 0.24-0.36 medy=629) EOSINOPHILS ABSOLUTE COUNT (BEAKER) (test 0.16 K/ L 0.04-0.36 bfct=057) BASOPHILS ABSOLUTE COUNT (BEAKER) (test 0.04 K/ L 0.01-0.08 hdrp=632) IMMATURE GRANULOCYTES-RELATIVE PERCENT (BEAKER) 0 % 0-1 (test utpg=1448) CALCIUM, [id number] 05:17:00 Test Item Value Reference Range Comments CALCIUM IONIZED (BEAKER) (test sihu=986) 1.06 mmol/L 1.12-1.27 PH, BLOOD (BEAKER) (test ccoi=8114) 7.41 U/S, RENAL, [id number] 03:59:00Reason for exam:->HEMALATHA/CKDShould this be performed at [...] Wilson Verified Date/Time: 11/24/2018 03:59:04 Reading Location: [facility] C013 Transitional Reading Room TROPONIN [id number] 23:19:00 Test Item Value Reference Range Comments TROPONIN I (BEAKER) (test ukxc=344) < ng/mL 0.00-0.03 Troponin I (TnI) levels [...] acidosis, acute neurological disease, and persistent tachyarrhythmia.POCT-GLUCOSE [id number] 21:12:00 Test Item Value Reference Range Comments POC-GLUCOSE METER (BEAKER) 277 mg/dL 70-110 TESTED AT [address] (test fxxn=7916) [facility] [address] PROTEIN, RANDOM [id number] 20:11:00 Test Item Value Reference Range Comments PROTEIN, URINE (BEAKER) (test kift=9258) 10 mg/dL 0-14 SODIUM, RANDOM [id number] 20:05:00 Test Item Value Reference Range Comments SODIUM URINE (BEAKER) (test kznz=935) < meq/L Reference Range: No NormalsPOCT-GLUCOSE [id number] 17:28:00 Test Item Value Reference Range Comments POC-GLUCOSE METER (BEAKER) 291 mg/dL 70-110 TESTED AT [address] (test vicg=5038) [facility] [address] POCT-GLUCOSE [id number] 14:02:00 Test Item Value Reference Range Comments POC-GLUCOSE METER (BEAKER) 148 mg/dL 70-110 TESTED AT [facility] [address] [facility] (test wrsm=1708) [facility] [address] URINALYSIS W/ [id number] 13:32:00 Test Item Value Reference Range Comments COLOR (BEAKER) (test bsvi=152) Yellow CLARITY (BEAKER) (test wioq=329) Clear SPECIFIC GRAVITY UA (BEAKER) (test 1.015 1.001-1.035 etyj=728) PH UA (BEAKER) (test ruhn=350) 5.0 5.0-8.0 PROTEIN UA (BEAKER) (test lsor=851) Negative Negative GLUCOSE UA (BEAKER) (test quoy=574) Negative Negative KETONES UA (BEAKER) (test aowb=872) Negative Negative BILIRUBIN UA (BEAKER) (test soai=474) Negative Negative BLOOD UA (BEAKER) (test gfjl=148) Negative Negative NITRITE UA (BEAKER) (test hjtl=827) Negative Negative LEUKOCYTE ESTERASE UA (BEAKER) (test Negative Negative dznu=372) UROBILINOGEN UA (BEAKER) (test oljg=777) 0.2 mg/dL 0.2-1.0 RBC UA (BEAKER) (test inlm=936) < /HPF WBC UA (BEAKER) (test zolx=602) 2 /HPF BACTERIA (BEAKER) (test zgak=261) Occasional SQUAMOUS EPITHELIAL (BEAKER) (test 19 /HPF iaxh=042) HYALINE CASTS (BEAKER) (test angm=750) 5 /LPF AMORPHOUS CRYSTALS (BEAKER) (test Occasional mfnw=3629) SOURCE(BEAKER) (test vbnu=5778) Urine, Clean Catch U/S, ABDOMINAL, [id number] 13:29:00Abdomen limited area? Add comment if clarification [...] Valles Verified Date/Time: 11/23/2018 13:29:13 Reading Location: [address] Transitional Reading Room U/S, [id number] 13:01:00Reason for exam:->Therapeutic paracentesisFINAL REPORT Paracentesis dated 11/23/2018 Procedure: Ultrasound-guided paracentesis. Preprocedure diagnosis: Ascites Postprocedure diagnosis: Ascites Conscious sedation: None. Radiologist: Giovanni Haas M.D. Bag Grader: None Anesthesia: 1% Xylocaine mixed with sodium bicarbonate local anesthesia. Technique: After obtaining informed consent, ultrasound-guided paracentesis was performed under usual sterile technique. Using a 5 guamanian drainage catheter , puncture was made in the right lower quadrant abdomen. Approximately 16,200 cc of serous fluid was removed. Patient tolerated the procedure well without complication. Complication: None Graft/Implant: None Estimated Blood Loss: None Impression: Ultrasound-guided paracentesis. Signed: Giovanni Haas Verified Date/Time: 11/23/2018 13:01:25 Reading Location: [facility] C013X Ortho Consult Reading Room Electronically signedby: GIOVANNI HAAS M.D. on 2018 01:01 PMCBC W/PLT COUNT & AUTO [id number] 08:55:00 Test Item Value Reference Range Comments WHITE BLOOD CELL COUNT (BEAKER) (test ysmy=334) 5.7 K/ L 3.5-10.5 RED BLOOD CELL COUNT (BEAKER) (test ceqn=172) 3.72 M/ L 3.93-5.22 HEMOGLOBIN (BEAKER) (test bbzp=826) 10.5 GM/DL 11.2-15.7 HEMATOCRIT (BEAKER) (test foga=267) 32.5 % 34.1-44.9 MEAN CORPUSCULAR VOLUME (BEAKER) (test thkn=401) 87.4 fL 79.4-94.8 MEAN CORPUSCULAR HEMOGLOBIN (BEAKER) (test 28.2 pg 25.6-32.2 func=854) MEAN CORPUSCULAR HEMOGLOBIN CONC (BEAKER) (test 32.3 GM/DL 32.2-35.5 msim=776) RED CELL DISTRIBUTION WIDTH (BEAKER) (test 14.5 % 11.7-14.4 nqjz=797) PLATELET COUNT (BEAKER) (test wqnj=889) 148 K/CU MM 150-450 MEAN PLATELET VOLUME (BEAKER) (test zfgs=845) 9.4 fL 9.4-12.3 NUCLEATED RED BLOOD CELLS (BEAKER) (test 0 /100 WBC 0-0 diss=815) NEUTROPHILS RELATIVE PERCENT (BEAKER) (test 63 % lfrh=755) LYMPHOCYTES RELATIVE PERCENT (BEAKER) (test 23 % lslv=620) MONOCYTES RELATIVE PERCENT (BEAKER) (test 8 % ktln=572) EOSINOPHILS RELATIVE PERCENT (BEAKER) (test 5 % csko=964) BASOPHILS RELATIVE PERCENT (BEAKER) (test 1 % orob=231) NEUTROPHILS ABSOLUTE COUNT (BEAKER) (test 3.61 K/ L 1.56-6.13 zfkf=601) LYMPHOCYTES ABSOLUTE COUNT (BEAKER) (test 1.29 K/ L 1.18-3.74 mcgg=925) MONOCYTES ABSOLUTE COUNT (BEAKER) (test 0.47 K/ L 0.24-0.36 dxbf=987) EOSINOPHILS ABSOLUTE COUNT (BEAKER) (test 0.28 K/ L 0.04-0.36 zscu=725) BASOPHILS ABSOLUTE COUNT (BEAKER) (test 0.05 K/ L 0.01-0.08 gqkk=230) IMMATURE GRANULOCYTES-RELATIVE PERCENT (BEAKER) 0 % 0-1 (test ftzc=5802) POCT-GLUCOSE [id number] 07:43:00 Test Item Value Reference Range Comments POC-GLUCOSE METER (BEAKER) 196 mg/dL 70-110 TESTED AT [facility] [address] [facility] (test ahuj=7344) [facility] [address] [id number] 06:53:00 Test Item Value Reference Range Comments FERRITIN (BEAKER) (test diji=917) 52 ng/mL 5-275 HEPATITIS B [id number] 06:21:00 Test Item Value Reference Range Comments HEPATITIS B CORE TOTAL ANTIBODY (BEAKER) (test Nonreactive Nonreactive zplr=630) HEPATITIS B SURFACE ANTIBODY (BEAKER) (test < mIU/mL <8.0 ioxa=192) HEPATITIS B SURFACE ANTIGEN (2) (BEAKER) (test Nonreactive Nonreactive qlfw=9029) HEPATITIS C [id number] 06:20:00 Test Item Value Reference Range Comments HEPATITIS C ANTIBODY (BEAKER) (test vyyq=923) Nonreactive Nonreactive HEPATITIS A [id number] 06:20:00 Test Item Value Reference Range Comments HEPATITIS A IGM ANTIBODY (BEAKER) (test Nonreactive Nonreactive gfti=892) HEPATITIS A IGG ANTIBODY (BEAKER) (test Nonreactive Nonreactive veao=0295) ALPHA FETOPROTEIN (AFP), TUMOR [id number] 06:14:00 Test Item Value Reference Range Comments ALPHA-FETOPROTEIN (BEAKER) (test lpuy=0994) 2.1 ng/mL <10.0 COMPREHENSIVE METABOLIC [id number] 06:01:00 Test Item Value Reference Range Comments TOTAL PROTEIN (BEAKER) 5.9 gm/dL 6.0-8.3 (test tkxv=968) ALBUMIN (BEAKER) (test 2.9 g/dL 3.5-5.0 yahz=5423) ALKALINE PHOSPHATASE 96 U/L 40-150 (BEAKER) (test fhmv=961) BILIRUBIN TOTAL (BEAKER) 0.5 mg/dL 0.2-1.2 (test hiba=845) SODIUM (BEAKER) (test 132 meq/L 136-145 nidd=897) POTASSIUM (BEAKER) (test 4.3 meq/L 3.5-5.1 wurl=093) CHLORIDE (BEAKER) (test 100 meq/L 98-107 ynkf=007) CO2 (BEAKER) (test 26 meq/L 22-29 wkfc=462) BLOOD UREA NITROGEN 50 mg/dL 7-21 (BEAKER) (test jjzt=600) CREATININE (BEAKER) (test 2.27 mg/dL 0.57-1.25 yezc=932) GLUCOSE RANDOM (BEAKER) 219 mg/dL 70-105 (test phfw=763) CALCIUM (BEAKER) (test 8.8 mg/dL 8.4-10.2 ltdq=243) AST (SGOT) (BEAKER) (test 22 U/L 5-34 hmrz=728) ALT (SGPT) (BEAKER) (test 15 U/L 6-55 mnbt=715) EGFR (BEAKER) (test 22 mL/min/1.73 sq m ESTIMATED GFR IS NOT zpek=1731) ACCURATE CREATININE CLEARANCE IN PREDICTING GLOMERULAR FILTRATION RATE. ESTIMATED GFR IS NOT APPLICABLE FOR DIALYSIS PATIENTS. IRON, TIBC, % SAT. (WITHOUT FERRITIN)2018-11-23 05:55:00 Test Item Value Reference Range Comments IRON (BEAKER) (test mpsm=286) 46.0 ug/dL 40.0-160.0 TOTAL IRON BINDING CAPACITY (BEAKER) (test 269 ug/dL 250-450 umbl=868) IRON % SATURATION (2) (BEAKER) (test wvis=1627) 17 % 20-55 [id number] 05:54:00 Test Item Value Reference Range Comments ALPHA-1 ANTITRYPSIN (BEAKER) (test jims=970) 202.70 mg/dL 90.00-200.00 COMPREHENSIVE METABOLIC [id number] 00:16:00 Test Item Value Reference Range Comments TOTAL PROTEIN (BEAKER) 6.8 gm/dL 6.0-8.3 (test vcfm=761) ALBUMIN (BEAKER) (test 3.3 g/dL 3.5-5.0 ojkb=6289) ALKALINE PHOSPHATASE 114 U/L 40-150 (BEAKER) (test govy=761) BILIRUBIN TOTAL (BEAKER) 0.6 mg/dL 0.2-1.2 (test ssxu=771) SODIUM (BEAKER) (test 130 meq/L 136-145 sgok=513) POTASSIUM (BEAKER) (test 4.4 meq/L 3.5-5.1 zauo=007) CHLORIDE (BEAKER) (test 99 meq/L 98-107 qmln=233) CO2 (BEAKER) (test 22 meq/L 22-29 vful=396) BLOOD UREA NITROGEN 46 mg/dL 7-21 (BEAKER) (test ozan=261) CREATININE (BEAKER) (test 2.40 mg/dL 0.57-1.25 rhyb=645) GLUCOSE RANDOM (BEAKER) 153 mg/dL 70-105 (test rrou=394) CALCIUM (BEAKER) (test 9.1 mg/dL 8.4-10.2 bqfq=720) AST (SGOT) (BEAKER) (test 25 U/L 5-34 uhyn=010) ALT (SGPT) (BEAKER) (test 17 U/L 6-55 jbxg=084) EGFR (BEAKER) (test 21 mL/min/1.73 sq m ESTIMATED GFR IS NOT orpd=8296) ACCURATE CREATININE CLEARANCE IN PREDICTING GLOMERULAR FILTRATION RATE. ESTIMATED GFR IS NOT APPLICABLE FOR DIALYSIS PATIENTS. PT/[id number] 23:52:00 Test Item Value Reference Range Comments PROTIME (BEAKER) (test zubr=186) 13.3 seconds 11.7-14.7 INR (BEAKER) (test xiyd=001) 1.0 <=5.9 PARTIAL THROMBOPLASTIN TIME (BEAKER) (test 26.9 seconds 22.5-36.0 vcaa=391) RECOMMENDED COUMADIN/WARFARIN INR THERAPY RANGESSTANDARD DOSE: 2.0 - 3.0 Includes: PROPHYLAXIS forvenous thrombosis, systemic embolization; TREATMENT for venous thrombosis and/or pulmonary embolus.HIGH RISK: Target INR is 2.5-3.5 for patients with mechanical heart valves.POCT-GLUCOSE [id number] 21:25:00 Test Item Value Reference Range Comments POC-GLUCOSE METER (BEAKER) 178 mg/dL 70-110 TESTED AT [facility] [address] [facility] (test bmmp=2372) [facility] [address]
[2018-12-23] MEDS ORDERED: NA CHLORIDE 0.9% 1,000 ML ONE (07:38)
[2018-12-23] MEDS ORDERED: LIDOCAINE 1% MPF 5 ML VIAL ONE (08:57)
[2018-12-23] MEDS ORDERED: PROPOFOL 200 MG/20 ML VIAL IV ONE (08:57)
[2018-12-23] MEDS ORDERED: EPINEPHRINE/PF 1 MG/ML AMP ONE (09:06)
[2018-12-23 10:31] LABS: Protime INR 0.9
[2018-12-23 10:46] LABS: MPV 7.8 fL (7.6-11.3)
[2018-12-23] MEDS ORDERED: ALBUMIN HUMAN 25% 200 ML IV ONE (11:04)
[2018-12-23 11:11] LABS: Platelet Estimate ADEQ
--- NOTE | 2018-12-23 11:23 | RAD REPORT ---
EXAM DESCRIPTION: US - Paracentesis Proc Guidance - 12/23/2018 11:16 am CLINICAL HISTORY: ascites Ascites COMPARISON: Paracentesis Proc Guidance dated 12/17/2018 FINDINGS: Informed consent was obtained and time-out was performed. Patient's abdomen was prepped and draped in the usual sterile fashion. 1% lidocaine was used for loca l anesthetic purposes. A small skin incision was made in the right lower quadrant. A paracentesis catheter was guided into t he peroneal cavity under sonographic guidance. A small amount of fluid was sent for requested lab studies. A large volume paracentesis was performed . The patient tolerated the procedure well. Patient was administered IV albumin per protocol following the procedure. IMPRESSION: Successful ultrasound-guided paracentesis.
[2018-12-23] MEDS ORDERED: ALBUMIN HUMAN 25% 100 ML IV ONE (11:27)
--- NOTE | 2018-12-23 20:19 | OP ---
Surgeon: Bishop Peralta MD Procedure Performed: Esophagogastroduodenoscopy. Performing Physician: Bishop Peralta M.D. Indication For Procedure: Possible history of esophageal viruses, possible banding. Plan For Anesthesia: Monitored anesthesia care. Complexity: High due to probability of therapeutic intervention. Technique: After obtaining informed consent from the patient explaining risks and complications, whi ch include, but are not limited to bleeding, infection, perforation, and anesthesia complication. Th e patient was placed in the supine position due to her significant ascites and sedation was given. T he scope was advanced into the mouth and was carefully guided up till the duodenum, however, gastric and duodenal views were very brief due to moderate amount of gastric retention of food. Therefore, d ecision was taken not to spend too much time in the endoscopy. However, we used our time to treat th e esophageal varices as detailed below. After the completion of procedure, the scope and equipment w ere withdrawn and procedure terminated in a safe manner. Findings: Esophagus: In the mid and distal esophagus, large grade 3 esophageal varices were seen. One of them actually had a red sign. Two bands were successfully placed in the distal esophagus. Stomach: There was moderate amount of retained food seen. Duodenum: Not examined in detail. Complications: None. Tolerance To Anesthesia: Excellent. Postop Diagnoses: Large esophageal varices with red sign status post banding, gastric retention. Plan: 1.Continue oral PPI and beta-kenny. 2.Follow up in the GI Clinic. 3.We will schedule for another paracentesis with albumin infusion. 4.Given the severity of repeat recollection of ascites may benefit from TIPS. We will discuss that with the patient. US/MODL Voice ID: [id number] Report ID: [id number]
== END 2018-12-23 12:45 | disposition home or self-care (01) ==
LOC: OR 07:05
PROVIDERS: ATTEND Internal Medicine Gastroenterology
PROC: 06L38CZ Occlusion of Esophageal Vein with Extraluminal Device, Via Natural or Artificial Opening Endoscopic (ICD-10-PCS; principal; 2018-12-23 08:30)
DX: I85.01 Esophageal varices with bleeding (principal); K31.89 Other diseases of stomach and duodenum; K74.69 Other cirrhosis of liver; R18.8 Other ascites; E11.9 Type 2 diabetes mellitus without complications; I10 Essential (primary) hypertension; K21.9 Gastro-esophageal reflux disease without esophagitis; Z79.84 Long term (current) use of oral hypoglycemic drugs; Z79.899 Other long term (current) drug therapy
CPT/HCPCS: 36415; 49083; 82962; 85049; 85610; 88108; 88305; 96365; J0171; J2704; J7030; P9047

== ENCOUNTER → 2019-01-02 | Day surgery (SDC) | payer OTHER ==
[~2019-01-02] MED LIST: ALBUMIN HUMAN 25% 300 ML IV ONE
--- OUTSIDE RECORDS SUMMARY | 2019-01-02 07:44 | XMS REPORT ---
:1960 [facility] Address [address] [place] [address] Dr. Melton [address] [place] [id number] Care Team Providers Name Role Phone ZEB [...] Value Reference Range Comments SCAN RESULT (test [id number]) OSMOLALITY, [id number] 10:30:00 Test Item Value Reference Range Comments OSMOLALITY, SERUM (BEAKER) (test txkk=039) 301 mOsm/kg 275-295 POCT-GLUCOSE [id number] 08:26:00 Test Item Value Reference Range Comments POC-GLUCOSE METER (BEAKER) 243 mg/dL 70-110 TESTED AT [facility] [address] [place] [address] (test agje=3586) [facility] [address] COMPREHENSIVE METABOLIC [id number] 08:05:00 Test Item Value Reference Range Comments TOTAL PROTEIN (BEAKER) 5.5 gm/dL 6.0-8.3 (test sunr=230) ALBUMIN (BEAKER) (test 3.2 g/dL 3.5-5.0 njik=8022) ALKALINE PHOSPHATASE 75 U/L 40-150 (BEAKER) (test cboa=122) BILIRUBIN TOTAL (BEAKER) 0.9 mg/dL 0.2-1.2 (test igrv=129) SODIUM (BEAKER) (test 132 meq/L 136-145 bale=555) POTASSIUM (BEAKER) (test 4.3 meq/L 3.5-5.1 jwuf=521) CHLORIDE (BEAKER) (test 101 meq/L 98-107 sdck=254) CO2 (BEAKER) (test 25 meq/L 22-29 evbi=758) BLOOD UREA NITROGEN 45 mg/dL 7-21 (BEAKER) (test pwoi=048) CREATININE (BEAKER) (test 1.89 mg/dL 0.57-1.25 zlqd=574) GLUCOSE RANDOM (BEAKER) 241 mg/dL 70-105 (test qvsp=736) CALCIUM (BEAKER) (test 8.6 mg/dL 8.4-10.2 lvri=605) AST (SGOT) (BEAKER) (test 19 U/L 5-34 lxve=599) ALT (SGPT) (BEAKER) (test 10 U/L 6-55 jrgc=193) EGFR (BEAKER) (test 27 mL/min/1.73 sq m ESTIMATED GFR IS NOT fcya=7411) ACCURATE CREATININE CLEARANCE IN PREDICTING GLOMERULAR FILTRATION RATE. ESTIMATED GFR IS NOT APPLICABLE FOR DIALYSIS PATIENTS. [id number] 08:02:00 Test Item Value Reference Range Comments PHOSPHORUS (BEAKER) (test yxfi=076) 3.6 mg/dL 2.3-4.7 [id number] 08:02:00 Test Item Value Reference Range Comments MAGNESIUM (BEAKER) (test zzfi=797) 2.0 mg/dL 1.6-2.6 CBC W/PLT COUNT & AUTO [id number] 05:40:00 Test Item Value Reference Range Comments WHITE BLOOD CELL COUNT (BEAKER) (test clav=231) 5.7 K/ L 3.5-10.5 RED BLOOD CELL COUNT (BEAKER) (test zfsd=089) 3.76 M/ L 3.93-5.22 HEMOGLOBIN (BEAKER) (test faio=942) 10.6 GM/DL 11.2-15.7 HEMATOCRIT (BEAKER) (test plhj=061) 32.9 % 34.1-44.9 MEAN CORPUSCULAR VOLUME (BEAKER) (test qalx=106) 87.5 fL 79.4-94.8 MEAN CORPUSCULAR HEMOGLOBIN (BEAKER) (test 28.2 pg 25.6-32.2 ennr=568) MEAN CORPUSCULAR HEMOGLOBIN CONC (BEAKER) (test 32.2 GM/DL 32.2-35.5 qbnh=808) RED CELL DISTRIBUTION WIDTH (BEAKER) (test 14.2 % 11.7-14.4 ibsm=757) PLATELET COUNT (BEAKER) (test mdhq=542) 142 K/CU MM 150-450 MEAN PLATELET VOLUME (BEAKER) (test scfq=778) 9.8 fL 9.4-12.3 NUCLEATED RED BLOOD CELLS (BEAKER) (test 0 /100 WBC 0-0 wjtx=597) NEUTROPHILS RELATIVE PERCENT (BEAKER) (test 70 % acau=168) LYMPHOCYTES RELATIVE PERCENT (BEAKER) (test 19 % qytl=660) MONOCYTES RELATIVE PERCENT (BEAKER) (test 7 % kwbv=366) EOSINOPHILS RELATIVE PERCENT (BEAKER) (test 3 % gvjh=533) BASOPHILS RELATIVE PERCENT (BEAKER) (test 1 % cetu=256) NEUTROPHILS ABSOLUTE COUNT (BEAKER) (test 3.99 K/ L 1.56-6.13 ofke=989) LYMPHOCYTES ABSOLUTE COUNT (BEAKER) (test 1.05 K/ L 1.18-3.74 ombe=535) MONOCYTES ABSOLUTE COUNT (BEAKER) (test 0.40 K/ L 0.24-0.36 pnhh=443) EOSINOPHILS ABSOLUTE COUNT (BEAKER) (test 0.16 K/ L 0.04-0.36 wgpa=117) BASOPHILS ABSOLUTE COUNT (BEAKER) (test 0.04 K/ L 0.01-0.08 rrpp=266) IMMATURE GRANULOCYTES-RELATIVE PERCENT (BEAKER) 0 % 0-1 (test zhbb=8374) CALCIUM, [id number] 05:17:00 Test Item Value Reference Range Comments CALCIUM IONIZED (BEAKER) (test sycr=511) 1.06 mmol/L 1.12-1.27 PH, BLOOD (BEAKER) (test nhga=0442) 7.41 U/S, RENAL, [id number] 03:59:00Reason for exam:->HEMALATHA/CKDShould this be performed at [...] Wilson Verified Date/Time: 11/24/2018 03:59:04 Reading Location: [facility] C013 Transitional Reading Room TROPONIN [id number] 23:19:00 Test Item Value Reference Range Comments TROPONIN I (BEAKER) (test luak=010) < ng/mL 0.00-0.03 Troponin I (TnI) levels [...] acidosis, acute neurological disease, and persistent tachyarrhythmia.POCT-GLUCOSE [id number] 21:12:00 Test Item Value Reference Range Comments POC-GLUCOSE METER (BEAKER) 277 mg/dL 70-110 TESTED AT [address] (test dpkf=8396) [facility] [address] PROTEIN, RANDOM [id number] 20:11:00 Test Item Value Reference Range Comments PROTEIN, URINE (BEAKER) (test jyue=1731) 10 mg/dL 0-14 SODIUM, RANDOM [id number] 20:05:00 Test Item Value Reference Range Comments SODIUM URINE (BEAKER) (test hwrj=769) < meq/L Reference Range: No NormalsPOCT-GLUCOSE [id number] 17:28:00 Test Item Value Reference Range Comments POC-GLUCOSE METER (BEAKER) 291 mg/dL 70-110 TESTED AT [address] (test uhoo=0266) [facility] [address] POCT-GLUCOSE [id number] 14:02:00 Test Item Value Reference Range Comments POC-GLUCOSE METER (BEAKER) 148 mg/dL 70-110 TESTED AT [facility] [address] [facility] (test adxf=1221) [facility] [address] URINALYSIS W/ [id number] 13:32:00 Test Item Value Reference Range Comments COLOR (BEAKER) (test bhon=643) Yellow CLARITY (BEAKER) (test wula=955) Clear SPECIFIC GRAVITY UA (BEAKER) (test 1.015 1.001-1.035 irnt=532) PH UA (BEAKER) (test dtns=140) 5.0 5.0-8.0 PROTEIN UA (BEAKER) (test nddd=781) Negative Negative GLUCOSE UA (BEAKER) (test pzhj=350) Negative Negative KETONES UA (BEAKER) (test jdmc=162) Negative Negative BILIRUBIN UA (BEAKER) (test qjdz=153) Negative Negative BLOOD UA (BEAKER) (test zsux=298) Negative Negative NITRITE UA (BEAKER) (test hkxf=040) Negative Negative LEUKOCYTE ESTERASE UA (BEAKER) (test Negative Negative ouqz=355) UROBILINOGEN UA (BEAKER) (test wpjj=778) 0.2 mg/dL 0.2-1.0 RBC UA (BEAKER) (test xccf=528) < /HPF WBC UA (BEAKER) (test dlis=112) 2 /HPF BACTERIA (BEAKER) (test tvmw=643) Occasional SQUAMOUS EPITHELIAL (BEAKER) (test 19 /HPF jiog=395) HYALINE CASTS (BEAKER) (test vlca=385) 5 /LPF AMORPHOUS CRYSTALS (BEAKER) (test Occasional zdlp=5034) SOURCE(BEAKER) (test iubh=7302) Urine, Clean Catch U/S, ABDOMINAL, [id number] 13:29:00Abdomen limited area? Add comment if clarification [...] Valles Verified Date/Time: 11/23/2018 13:29:13 Reading Location: [address] Transitional Reading Room U/S, [id number] 13:01:00Reason for exam:->Therapeutic paracentesisFINAL REPORT Paracentesis dated 11/23/2018 Procedure: Ultrasound-guided paracentesis. Preprocedure diagnosis: Ascites Postprocedure diagnosis: Ascites Conscious sedation: None. Radiologist: Giovanni Haas M.D. Travel Accommodations Rater: None Anesthesia: 1% Xylocaine mixed with sodium bicarbonate local anesthesia. Technique: After obtaining informed consent, ultrasound-guided paracentesis was performed under usual sterile technique. Using a 5 khmer drainage catheter , puncture was made in the right lower quadrant abdomen. Approximately 16,200 cc of serous fluid was removed. Patient tolerated the procedure well without complication. Complication: None Graft/Implant: None Estimated Blood Loss: None Impression: Ultrasound-guided paracentesis. Signed: Giovanni Haas Verified Date/Time: 11/23/2018 13:01:25 Reading Location: [facility] C013X Ortho Consult Reading Room Electronically signedby: GIOVANNI HAAS M.D. on 2018 01:01 PMCBC W/PLT COUNT & AUTO [id number] 08:55:00 Test Item Value Reference Range Comments WHITE BLOOD CELL COUNT (BEAKER) (test jlam=376) 5.7 K/ L 3.5-10.5 RED BLOOD CELL COUNT (BEAKER) (test xncg=285) 3.72 M/ L 3.93-5.22 HEMOGLOBIN (BEAKER) (test kydm=910) 10.5 GM/DL 11.2-15.7 HEMATOCRIT (BEAKER) (test lejx=518) 32.5 % 34.1-44.9 MEAN CORPUSCULAR VOLUME (BEAKER) (test vsbg=575) 87.4 fL 79.4-94.8 MEAN CORPUSCULAR HEMOGLOBIN (BEAKER) (test 28.2 pg 25.6-32.2 modh=748) MEAN CORPUSCULAR HEMOGLOBIN CONC (BEAKER) (test 32.3 GM/DL 32.2-35.5 ekui=235) RED CELL DISTRIBUTION WIDTH (BEAKER) (test 14.5 % 11.7-14.4 fwoh=092) PLATELET COUNT (BEAKER) (test tghx=959) 148 K/CU MM 150-450 MEAN PLATELET VOLUME (BEAKER) (test tmgj=702) 9.4 fL 9.4-12.3 NUCLEATED RED BLOOD CELLS (BEAKER) (test 0 /100 WBC 0-0 lawm=397) NEUTROPHILS RELATIVE PERCENT (BEAKER) (test 63 % jced=372) LYMPHOCYTES RELATIVE PERCENT (BEAKER) (test 23 % udzp=239) MONOCYTES RELATIVE PERCENT (BEAKER) (test 8 % lajo=573) EOSINOPHILS RELATIVE PERCENT (BEAKER) (test 5 % trit=226) BASOPHILS RELATIVE PERCENT (BEAKER) (test 1 % socm=428) NEUTROPHILS ABSOLUTE COUNT (BEAKER) (test 3.61 K/ L 1.56-6.13 uuks=974) LYMPHOCYTES ABSOLUTE COUNT (BEAKER) (test 1.29 K/ L 1.18-3.74 gacn=892) MONOCYTES ABSOLUTE COUNT (BEAKER) (test 0.47 K/ L 0.24-0.36 ecjj=113) EOSINOPHILS ABSOLUTE COUNT (BEAKER) (test 0.28 K/ L 0.04-0.36 llhi=323) BASOPHILS ABSOLUTE COUNT (BEAKER) (test 0.05 K/ L 0.01-0.08 gjam=657) IMMATURE GRANULOCYTES-RELATIVE PERCENT (BEAKER) 0 % 0-1 (test midu=4020) POCT-GLUCOSE [id number] 07:43:00 Test Item Value Reference Range Comments POC-GLUCOSE METER (BEAKER) 196 mg/dL 70-110 TESTED AT [facility] [address] [facility] (test ktxy=9376) [facility] [address] [id number] 06:53:00 Test Item Value Reference Range Comments FERRITIN (BEAKER) (test sreo=401) 52 ng/mL 5-275 HEPATITIS B [id number] 06:21:00 Test Item Value Reference Range Comments HEPATITIS B CORE TOTAL ANTIBODY (BEAKER) (test Nonreactive Nonreactive nxve=934) HEPATITIS B SURFACE ANTIBODY (BEAKER) (test < mIU/mL <8.0 mdik=703) HEPATITIS B SURFACE ANTIGEN (2) (BEAKER) (test Nonreactive Nonreactive gady=0050) HEPATITIS C [id number] 06:20:00 Test Item Value Reference Range Comments HEPATITIS C ANTIBODY (BEAKER) (test yvyu=400) Nonreactive Nonreactive HEPATITIS A [id number] 06:20:00 Test Item Value Reference Range Comments HEPATITIS A IGM ANTIBODY (BEAKER) (test Nonreactive Nonreactive ofbk=232) HEPATITIS A IGG ANTIBODY (BEAKER) (test Nonreactive Nonreactive vprk=8667) ALPHA FETOPROTEIN (AFP), TUMOR [id number] 06:14:00 Test Item Value Reference Range Comments ALPHA-FETOPROTEIN (BEAKER) (test rwix=7678) 2.1 ng/mL <10.0 COMPREHENSIVE METABOLIC [id number] 06:01:00 Test Item Value Reference Range Comments TOTAL PROTEIN (BEAKER) 5.9 gm/dL 6.0-8.3 (test wldo=189) ALBUMIN (BEAKER) (test 2.9 g/dL 3.5-5.0 ljiz=2112) ALKALINE PHOSPHATASE 96 U/L 40-150 (BEAKER) (test omui=162) BILIRUBIN TOTAL (BEAKER) 0.5 mg/dL 0.2-1.2 (test eemw=740) SODIUM (BEAKER) (test 132 meq/L 136-145 zjke=846) POTASSIUM (BEAKER) (test 4.3 meq/L 3.5-5.1 corg=796) CHLORIDE (BEAKER) (test 100 meq/L 98-107 hegh=128) CO2 (BEAKER) (test 26 meq/L 22-29 vdxd=080) BLOOD UREA NITROGEN 50 mg/dL 7-21 (BEAKER) (test hzfv=114) CREATININE (BEAKER) (test 2.27 mg/dL 0.57-1.25 aahm=047) GLUCOSE RANDOM (BEAKER) 219 mg/dL 70-105 (test nkpo=516) CALCIUM (BEAKER) (test 8.8 mg/dL 8.4-10.2 mhhz=173) AST (SGOT) (BEAKER) (test 22 U/L 5-34 vsnu=438) ALT (SGPT) (BEAKER) (test 15 U/L 6-55 pfrt=648) EGFR (BEAKER) (test 22 mL/min/1.73 sq m ESTIMATED GFR IS NOT vppa=5053) ACCURATE CREATININE CLEARANCE IN PREDICTING GLOMERULAR FILTRATION RATE. ESTIMATED GFR IS NOT APPLICABLE FOR DIALYSIS PATIENTS. IRON, TIBC, % SAT. (WITHOUT FERRITIN)2018-11-23 05:55:00 Test Item Value Reference Range Comments IRON (BEAKER) (test ikvv=492) 46.0 ug/dL 40.0-160.0 TOTAL IRON BINDING CAPACITY (BEAKER) (test 269 ug/dL 250-450 kkqk=406) IRON % SATURATION (2) (BEAKER) (test lskg=7057) 17 % 20-55 [id number] 05:54:00 Test Item Value Reference Range Comments ALPHA-1 ANTITRYPSIN (BEAKER) (test ielq=159) 202.70 mg/dL 90.00-200.00 COMPREHENSIVE METABOLIC [id number] 00:16:00 Test Item Value Reference Range Comments TOTAL PROTEIN (BEAKER) 6.8 gm/dL 6.0-8.3 (test zrrn=139) ALBUMIN (BEAKER) (test 3.3 g/dL 3.5-5.0 svsb=8961) ALKALINE PHOSPHATASE 114 U/L 40-150 (BEAKER) (test bfif=991) BILIRUBIN TOTAL (BEAKER) 0.6 mg/dL 0.2-1.2 (test tvei=826) SODIUM (BEAKER) (test 130 meq/L 136-145 wezj=084) POTASSIUM (BEAKER) (test 4.4 meq/L 3.5-5.1 rkek=778) CHLORIDE (BEAKER) (test 99 meq/L 98-107 rpkj=704) CO2 (BEAKER) (test 22 meq/L 22-29 uxub=180) BLOOD UREA NITROGEN 46 mg/dL 7-21 (BEAKER) (test vxpk=445) CREATININE (BEAKER) (test 2.40 mg/dL 0.57-1.25 zbau=948) GLUCOSE RANDOM (BEAKER) 153 mg/dL 70-105 (test zoaw=678) CALCIUM (BEAKER) (test 9.1 mg/dL 8.4-10.2 clco=735) AST (SGOT) (BEAKER) (test 25 U/L 5-34 cdbi=488) ALT (SGPT) (BEAKER) (test 17 U/L 6-55 fksh=227) EGFR (BEAKER) (test 21 mL/min/1.73 sq m ESTIMATED GFR IS NOT vmxv=0101) ACCURATE CREATININE CLEARANCE IN PREDICTING GLOMERULAR FILTRATION RATE. ESTIMATED GFR IS NOT APPLICABLE FOR DIALYSIS PATIENTS. [id number] 23:52:00 Test Item Value Reference Range Comments PROTIME (BEAKER) (test qnua=307) 13.3 seconds 11.7-14.7 INR (BEAKER) (test jaip=243) 1.0 <=5.9 PARTIAL THROMBOPLASTIN TIME (BEAKER) (test 26.9 seconds 22.5-36.0 vwji=353) RECOMMENDED COUMADIN/WARFARIN INR THERAPY RANGESSTANDARD DOSE: 2.0 - 3.0 Includes: PROPHYLAXIS forvenous thrombosis, systemic embolization; TREATMENT for venous thrombosis and/or pulmonary embolus.HIGH RISK: Target INR is 2.5-3.5 for patients with mechanical heart valves.POCT-GLUCOSE [id number] 21:25:00 Test Item Value Reference Range Comments POC-GLUCOSE METER (BEAKER) 178 mg/dL 70-110 TESTED AT [facility] [address] [facility] (test nyok=5426) [facility] [address]
--- OUTSIDE RECORDS SUMMARY | 2019-01-02 07:44 | XMS REPORT | Clinical Summary ---
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 (HCC) after 01/01/2018 Immunizations Name Dates Previously Given Next Due [...] Taken Blood Pressure 100/50 11/24/2018 11:07 AM HEAD CHARRER Pulse 85 11/24/2018 11:07 AM HEAD [facility]ER Temperature 36.3 C (97.3 F) 11/24/2018 11:07 AM HEAD [facility]ER Respiratory Rate 19 11/24/2018 11:07 AM HEAD [facility]ER Oxygen Saturation 93% 11/24/2018 11:07 AM HEAD [facility]ER Inhaled Oxygen Concentration 21% 11/24/2018 2:46 AM HEAD [facility]ER Weight 108.5 kg (239 lb 4.8 oz) 11/24/2018 7:00 AM HEAD CH[facility]ER Height 162.6 cm (5' 4") 11/22/2018 7:09 PM HEAD [facility]ER Body Mass Index 41.08 11/24/2018 7:00 AM HEAD [facility]ER Plan of Treatment Date Type Specialty Care Team Description 01/16/2019 Office Visit Hepatology Dami Storm MD [address] [id number] [facility] A Procedures Procedure Name Priority Date/Time Associated Comments Diagnosis RHYTHM STRIP - SCAN 12/13/2018 7:50 AM HEAD [facility]ER POCT-GLUCOSE METER Routine 11/24/2018 7:49 Results for this AM [facility] procedure are in the results section. CBC W/PLT COUNT & AUTO Routine 11/24/2018 4:27 Results for this DIFFERENTIAL AM [facility]ER procedure are in the results section. OSMOLALITY, SERUM Routine 11/24/2018 4:27 Results for this AM [facility] procedure are in the results section. PHOSPHORUS Routine 11/24/2018 4:27 Results for this AM HEAD [facility] procedure are in the results section. MAGNESIUM Routine 11/24/2018 4:27 Results for this AM [facility] procedure are in the results section. CALCIUM, IONIZED Routine 11/24/2018 4:27 Results for this AM HEAD [facility] procedure are in the results section. CBC W/PLT COUNT & AUTO Routine 11/24/2018 4:27 Results for this DIFFERENTIAL AM [facility] procedure are in the results section. COMPREHENSIVE Routine 11/24/2018 4:27 Results for this METABOLIC PANEL AM [facility]ER procedure are in the results section. US RENAL COMPLETE Routine 11/24/2018 3:20 Results for this AM HEAD [facility] procedure are in the results section. TROPONIN I Routine 11/23/2018 9:41 Results for this PM [facility] procedure are in the results section. ECG 12-LEAD Routine 11/23/2018 9:19 PM HEAD [facility]ER Procedure Note - Interface, External Ris In - 11/23/2018 9:22 PM HEAD [facility]ER Ventricular Rate 77 BPM Atrial Rate 77 BPM P-R Interval 172 ms QRS Duration 80 ms Q-T Interval 392 ms QTC Calculation(Bazett) 443 ms P Eden 44 degrees R Eden -47 degrees T Eden 50 degrees Normal sinus rhythm Left axis deviation Low voltage QRS Cannot rule out Anterior infarct , age undetermined Abnormal ECG No previous ECGs available ECG 12-LEAD STAT 11/23/2018 9:19 PM HEAD [facility]ER POCT-GLUCOSE METER Routine 11/23/2018 8:44 PM HEAD [facility]ER SODIUM, RANDOM URINE Routine 11/23/2018 7:01 PM HEAD [facility]ER PROTEIN, RANDOM URINE Routine 11/23/2018 7:01 PM HEAD [facility]ER POCT-GLUCOSE METER Routine 11/23/2018 5:17 PM HEAD [facility]ER POCT-GLUCOSE METER Routine 11/23/2018 2:01 PM HEAD CH[facility]ER US ABDOMEN LIMITED Routine 11/23/2018 1:05 PM HEAD [facility]ER US PARACENTESIS Routine 11/23/2018 12:48 PM HEAD [facility]ER URINALYSIS W/ MICROSCOPIC Routine 11/23/2018 10:58 AM HEAD [facility]ER CBC W/PLT COUNT & AUTO Routine 11/23/2018 8:40 AM HEAD [facility]ER Results for this DIFFERENTIAL procedure are in the results section. CBC W/PLT COUNT & AUTO Routine 11/23/2018 8:40 AM HEAD [facility]ER Results for this DIFFERENTIAL procedure are in the results section. POCT-GLUCOSE METER Routine 11/23/2018 7:02 AM HEAD CH[facility]ER ALPHA FETOPROTEIN (AFP), Routine 11/23/2018 4:53 AM HEAD [facility]ER Results for this TUMOR MARKER procedure are in the results section. HEPATITIS A PANEL Routine 11/23/2018 4:53 AM HEAD CHARRER HEPATITIS B PANEL Routine 11/23/2018 4:53 AM HEAD [facility]ER HEPATITIS C ANTIBODY Routine 11/23/2018 4:53 AM HEAD CH[facility]ER ACTIN (SMOOTH MUSCLE) Routine 11/23/2018 4:53 AM HEAD CH[facility]ER Results for this ANTIBODY, IGG procedure are in the results section. ANTI-MITOCHONDRIAL AB, Routine 11/23/2018 4:53 AM HEAD CHARRER REFLEX TO TITER [id number], SERUM Routine 11/23/2018 4:53 AM HEAD CH[facility]ER CERULOPLASMIN Routine 11/23/2018 4:53 AM HEAD CHARRER FERRITIN Routine 11/23/2018 4:53 AM HEAD CHARRER IRON, TIBC, % SAT. (WITHOUT Routine 11/23/2018 4:53 AM HEAD CH[facility]ER Results for this FERRITIN) procedure are in the results section. COMPREHENSIVE METABOLIC Routine 11/23/2018 4:53 AM HEAD [facility]ER Results for this PANEL procedure are in the results section. PT/APTT Routine 11/22/2018 11:31 PM HEAD CHARRER COMPREHENSIVE METABOLIC Routine 11/22/2018 11:31 PM HEAD CH[facility]ER Results for this PANEL procedure are in the results section. POCT-GLUCOSE METER Routine 11/22/2018 8:52 PM HEAD CH[facility]ER after 01/01/2018 Results RHYTHM STRIP - SCAN (12/13/2018 7:50 AM HEAD CHARRER) Narrative Performed At POC-Glucose meter (11/24/2018 7:49 AM HEAD CHARRER)Only the most recent of6 resultswithin the time period is included. POC-Glucose Meter 243 (H)Comment: TESTED AT 70 - 110 mg/dL [facility] [address] [facility] [address] Specimen Blood Performing Organization Address City/State/Zipcode Phone Number [address] [phone] [place] Calcium, Ionized (11/24/2018 4:27 AM HEAD CHARRER) Calcium, Ion 1.06 (L) 1.12 - 1.27 mmol/L [facility] pH, Blood 7.41 [facility] Specimen Blood Performing Organization Address City/State/Zipcode Phone Number [facility] [address] [place], [place] [phone] [place] CBC with platelet count + automated diff (11/24/2018 4:27 AM HEAD CHARRER)Only the most recent of2 resultswithin the time period is included. WBC 5.7 3.5 - 10.5 K/L [facility] RBC 3.76 (L) 3.93 - 5.22 M/L [facility] Hemoglobin 10.6 (L) 11.2 - 15.7 GM/DL [facility] Hematocrit 32.9 (L) 34.1 - 44.9 % [facility] MCV 87.5 79.4 - 94.8 fL [facility] MCH 28.2 25.6 - 32.2 pg [facility] MCHC 32.2 32.2 - 35.5 GM/DL [facility] RDW 14.2 11.7 - 14.4 % [facility] Platelets 142 (L) 150 - 450 K/CU MM [facility] MPV 9.8 9.4 - 12.3 fL [facility] nRBC 0 0 - 0 /100 WBC [facility] % Neutros 70 % [facility] % Lymphs 19 % [facility] % Monos 7 % [facility] % Eos 3 % [facility] % Baso 1 % [facility] # Neutros 3.99 1.56 - 6.13 K/L [facility] # Lymphs 1.05 (L) 1.18 - 3.74 K/L [facility] # Monos 0.40 (H) 0.24 - 0.36 K/L [facility] # Eos 0.16 0.04 - 0.36 K/L [facility] # Baso 0.04 0.01 - 0.08 K/L [facility] Immature Granulocytes-Relative 0 0 - 1 % [facility] Specimen Blood Performing Organization Address City/[facility] Phone Number [address] [address] [place] Phosphorus (11/24/2018 4:27 AM HEAD CHARRER) Phosphorus 3.6 2.3 - 4.7 mg/dL [facility] Specimen Blood Performing Organization Address City/[facility] Phone Number [address] [address] [phone] [place] Osmolality, serum (11/24/2018 4:27 AM HEAD CHARRER) Osmolality Serum 301 (H) 275 - 295 mOsm/kg [facility] Specimen Blood Performing Organization Address City/[facility] Phone Number [address] [address] [phone] [place] Magnesium (11/24/2018 4:27 AM HEAD CHARRER) Magnesium 2.0 1.6 - 2.6 mg/dL [facility] Specimen Blood Performing Organization Address [facility] Phone Number [address] [address] CENTER Comprehensive metabolic panel (11/24/2018 4:27 AM HEAD CHARRER)Only the most recent of3 resultswithin the time period is included. Protein, Total 5.5 (L) 6.0 - 8.3 gm/dL [facility] Albumin 3.2 (L) 3.5 - 5.0 g/dL [facility] Alkaline Phosphatase 75 40 - 150 U/L [facility] Total Bilirubin 0.9 0.2 - 1.2 mg/dL [facility] Sodium 132 (L) 136 - 145 meq/L [facility] Potassium 4.3 3.5 - 5.1 meq/L [facility] Chloride 101 98 - 107 meq/L [facility] CO2 25 22 - 29 meq/L [facility] BUN 45 (H) 7 - 21 mg/dL [facility] Creatinine 1.89 (H) 0.57 - 1.25 mg/dL [facility] Glucose 241 (H) 70 - 105 mg/dL [facility] Calcium 8.6 8.4 - 10.2 mg/dL [facility] AST 19 5 - 34 U/L [facility] ALT 10 6 - 55 U/L [facility] EGFR 27Comment: ESTIMATED GFR mL/min/1.73 sq m [facility] IS NOT ACCURATE [facility] CREATININE CLEARANCE IN PREDICTING GLOMERULAR FILTRATION RATE. ESTIMATED GFR IS NOT APPLICABLE FOR DIALYSIS PATIENTS. Specimen Blood Performing Organization Address City/State/Zipcode Phone Number [facility] [address] [place] [address] CENTER US renal complete (11/24/2018 3:20 AM HEAD CHARRER) Narrative Performed At FINAL REPORT [employer] U/S, RENAL, COMPLETE CLINICAL INDICATION:HEMALATHA/CKD COMPARISON: None [...] MD Report Verified Date/Time:11/24/2018 03:59:04 Reading Location: [address] Transitional Reading Room Procedure Note Interface, External Ris In - 11/24/2018 4:01 AM HEAD CHARRER FINAL REPORT U/S, RENAL, COMPLETE CLINICAL INDICATION: [...] Report Verified Date/Time: 11/24/2018 03:59:04 Reading Location: [facility] C0[facility] Transitional Reading Room Performing Organization Address City/State/Zipcode Phone Number [facility] ([place] [place]) Troponin I (11/23/2018 9:41 PM HEAD CHARRER) Troponin I <0.01 0.00 - 0.03 ng/mL [facility] Specimen Blood Narrative Performed At Troponin I (TnI) levels must be interpreted [facility] in the context of [...] disease, and persistent tachyarrhythmia. Performing Organization Address [facility] Facility[facility] Phone Number [address] [address] [place] ECG 12 lead (11/23/2018 9:19 PM HEAD CHARRER) Narrative Performed At Ventricular Rate 77 BPM GE MUSE Atrial Rate 77 BPM P-R Interval 172 ms QRS Duration 80 ms Q-T Interval 392 ms QTC Calculation(Bazett) 443 ms P Eden 44 degrees R Eden -47 degrees T Eden 50 degrees Normal sinus rhythm Left axis deviation Low voltage QRS Cannot rule out Anterior infarct , age undetermined Abnormal ECG No previous ECGs available Confirmed by MD TRAMMELL JOSEPH P ([id number]) on 11/24/2018 6:45:48 AM Procedure Note Interface, External Ris In - 11/24/2018 6:45 AM HEAD [facility]ER Ventricular Rate 77 BPM Atrial Rate 77 BPM P-R Interval 172 ms QRS Duration 80 ms Q-T Interval 392 ms QTC Calculation(Bazett) 443 ms P Eden 44 degrees R Eden -47 degrees T Eden 50 degrees Normal sinus rhythm Left axis deviation Low voltage QRS Cannot rule out Anterior infarct , age undetermined Abnormal ECG No previous ECGs available Confirmed by MD TRAMMELL JOSEPH P ([id number]) on 11/24/2018 6:45:48 AM Performing Organization Address [facility] Phone Number GE MUSE Sodium, random urine (11/23/2018 7:01 PM HEAD CHARRER) Sodium Urine <20 meq/L [facility] Specimen Urine Narrative Performed At Reference Range: No Normals [facility] Performing Organization Address [facility]/Zipcode Phone Number [phone] [place], [place] [phone] [place] Protein, random urine (11/23/2018 7:01 PM HEAD CHARRER) Protein, Urine 10 0 - 14 mg/dL [facility] Specimen Urine Performing Organization Address City/State/Zipcode Phone Number [facility] [address] [place] [address] CENTER US abdomen limited (11/23/2018 1:05 PM HEAD CHARRER) Narrative Performed At FINAL REPORT [employer] ULTRASOUND RIGHT UPPER QUADRANT OF THE ABDOMEN [...] MD Report Verified Date/Time:11/23/2018 13:29:13 Reading Location: [facility] C013T Transitional Reading Room Procedure Note Interface, External Ris In - 11/23/2018 1:31 PM HEAD CHARRER FINAL REPORT ULTRASOUND RIGHT UPPER QUADRANT OF [...] Report Verified Date/Time: 11/23/2018 13:29:13 Reading Location: [address] Transitional Reading Room Performing Organization Address City/State/Zipcode Phone Number [employer] US paracentesis (11/23/2018 12:48 PM HEAD CHARRER) Narrative Performed At FINAL REPORT [employer] Paracentesis dated 11/23/2018 Procedure: Ultrasound-guided paracentesis. Preprocedure diagnosis: Ascites Postprocedure diagnosis: Ascites Conscious sedation: None. Radiologist: Giovanni Haas M.D. [employer] Worker: None Anesthesia: 1% Xylocaine mixed with sodium bicarbonate local anesthesia. Technique: After obtaining informed consent, ultrasound-guided paracentesis was performed under usual sterile technique. Using a 5 maltese drainage catheter, puncture was made in the right lower quadrant abdomen. Approximately 16,200 cc of serous fluid was removed. Patient tolerated the procedure well without complication. Complication: None Graft/Implant: None Estimated Blood Loss: None Impression: Ultrasound-guided paracentesis. Signed: Giovanni Haas MD Report Verified Date/Time:11/23/2018 13:01:25 Reading Location: [facility] C013X Ortho Consult Reading Room Procedure Note Interface, External [facility] In - 11/23/2018 1:03 PM HEAD CHARRER FINAL REPORT Paracentesis dated 11/23/2018 Procedure: Ultrasound-guided paracentesis. Preprocedure diagnosis: Ascites Postprocedure diagnosis: Ascites Conscious sedation: None. Radiologist: Giovanni Haas M.D. [employer] Worker: None Anesthesia: 1% Xylocaine mixed with sodium bicarbonate local anesthesia. Technique: After obtaining informed consent, ultrasound-guided paracentesis was performed under usual sterile technique. Using a 5 maltese drainage catheter, puncture was made in the right lower quadrant abdomen. Approximately 16,200 cc of serous fluid was removed. Patient tolerated the procedure well without complication. Complication: None Graft/Implant: None Estimated Blood Loss: None Impression: Ultrasound-guided paracentesis. Signed: Giovanni Haas MD Report Verified Date/Time: 11/23/2018 13:01:25 Reading Location: [facility] C013X Ortho Consult Reading Room Performing Organization Address City/State/Zipcode Phone Number GE RIS Urinalysis w/ Microscopic (11/23/2018 10:58 AM HEAD CHARRER) Color, UA Yellow [facility] Clarity, UA Clear [facility] Specific [place], UA 1.015 1.001 - 1.035 [facility] pH, UA 5.0 5.0 - 8.0 [facility] Protein, UA Negative Negative [facility] Glucose, UA Negative Negative [facility] Ketones, UA Negative Negative [facility] Bilirubin, UA Negative Negative [facility] Blood, UA Negative Negative [facility] Nitrite, UA Negative Negative [facility] Leukocytes, UA Negative Negative [facility] Urobilinogen, UA 0.2 0.2 - 1.0 mg/dL [facility] RBC, UA <1 /HPF [facility] WBC, UA 2 /HPF [facility] Bacteria, UA Occasional [facility] Squam Epithel, UA 19 /HPF [facility] Hyaline Casts, UA 5 /LPF [facility] Amorphous Crystals Occasional [facility] Specimen Source Urine, Clean Catch [facility] Specimen Urine - Urine, Clean Catch Performing Organization Address City/[facility] Facility[facility] Phone Number [address] [address] [place] Anti-Mitochondrial Ab, reflex to titer (11/23/2018 4:53 AM HEAD CHARRER) Scan Result [facility] Specimen Blood Narrative Performed At Performing Organization Address City/[facility] Phone Number [place] [address] [place] [address] Iron, TIBC, % sat. (without ferritin) (11/23/2018 4:53 AM HEAD CHARRER) Iron 46.0 40.0 - 160.0 ug/dL [facility] TIBC 269 250 - 450 ug/dL [facility] Iron % Saturation 17 (L) 20 - 55 % [facility] Specimen Blood Performing Organization Address [facility] Phone Number [address] [address] [place] Hepatitis B Panel (11/23/2018 4:53 AM HEAD CHARRER) Hep B Core Total Ab NON-REACTIVE Nonreactive [facility] Hep B S Ab <8.0 <8.0 mIU/mL [facility] hepatitis B Surface Ag NON-REACTIVE Nonreactive [facility] Specimen Blood Performing Organization Address City/[facility]/Zipcode Phone Number [address] [address] [place] Hepatitis A Panel (11/23/2018 4:53 AM HEAD CHARRER) Hep A IgM HEPATITIS A TEST NEGATIVE Nonreactive [facility] Hep A IgG Nonreactive Nonreactive [facility] Specimen Blood Performing Organization Address [facility]/Zipcode Phone Number [address] [address] [place] Hepatitis C antibody (11/23/2018 4:53 AM HEAD CHARRER) Hepatitis C Ab NON-REACTIVE Nonreactive [facility] Specimen Blood Performing Organization Address [facility] Phone Number [address] [address] [place] Actin (Smooth Muscle) Antibody, IgG (11/23/2018 4:53 AM HEAD CHARRER) Anti-Smooth Muscle Ab <20 See Note: U [...] Lab [facility] EZ [facility] [address] [address] Gilles Moss MD, PhD, LINA Performing Organization Address [facility] Phone Number [place] [address] [address] [place] [address] [id number] (11/23/2018 4:53 AM HEAD CHARRER) A-1 Antitrypsin 202.70 (H) 90.00 - 200.00 mg/dL [facility] Specimen Blood Performing Organization Address [facility]/Zipcode Phone Number [address] [address] [phone] CENTER Ceruloplasmin (11/23/2018 4:53 AM HEAD CHARRER) Ceruloplasmin 28 18 - 53 mg/dL [facility] Comment: Adults:Males: 18-36 mg/dL Females: 18-53 mg/dL Pediatrics:Males (mg/dL)Females (mg/dL) 0-30 Days 8-25 3-28 31 Days-11 Month [id number] 1-3 [id number] 4-6 [id number] 7-9 [id number] 10-12 [id number] 13-15 [id number] 16-18 [id number] The pediatric ranges are derived from the following criteria: Sacha MONACO, Juwan BARONE, Poornima J et al Pediatric reference ranges for Resq-9-Ycjfhplaucxss and ceruloplasmin. Clin. Chem 1997; 43:S1999 Pediatric Reference Ranges, 2nd., [place] Sachaet al. editors. [employer], [place], [place] 1997. Specimen Blood Narrative Performed At Performing Lab [employer] [facility] *[facility], [address] [place] [phone] Noe Rosario MD, PhD Performing Organization Address [facility] Facility[facility] Phone Number [place] [address] [facility]OR[facility] [address] [facility] Alpha fetoprotein (AFP), tumor marker (11/23/2018 4:53 AM HEAD CHARRER) Alpha-Fetoprotein 2.1 <10.0 ng/mL [facility] Specimen Blood Performing Organization Address City/[facility]/Zipcode Phone Number [address] [address] [facility] Ferritin (11/23/2018 4:53 AM HEAD CHARRER) Ferritin 52 5 - 275 ng/mL [facility] Specimen Blood Performing Organization Address [facility]/Zipcode Phone Number [address] [address] C[place] PT/aPTT (11/22/2018 11:31 PM HEAD CHARRER) Protime 13.3 11.7 - 14.7 seconds [facility] INR 1.0 <=5.9 [facility] PTT 26.9 22.5 - 36.0 seconds [facility] Specimen Blood Narrative Performed At RECOMMENDED COUMADIN/WARFARIN INR THERAPY [facility] RANGES STANDARD DOSE: 2.0 - 3.0 Includes: PROPHYLAXIS for venous thrombosis, systemic embolization; TREATMENT for venous thrombosis and/or pulmonary embolus. HIGH RISK: Target INR is 2.5-3.5 for patients with mechanical heart valves. Performing Organization Address City/State/Zipcode Phone Number [facility] [address] [place] [address] CENTER after 01/01/2018 Insurance Payer Benefit Plan / Group Subscriber ID Type Phone Address ANISA SHELL xxxxxxxxxxx Advance Directives For more information, please contact:[facility] [place], [place] [phone] Code Status Date Activated Date Inactivated Comments Full Code 11/22/2018 10:01 PM This code status was determined by: Patient
--- NOTE | 2019-01-02 10:18 | RAD REPORT ---
EXAM DESCRIPTION: US - Paracentesis Proc Guidance - 01/02/2019 9:04 am CLINICAL HISTORY: Ascites COMPARISON: Paracentesis procedure December 23 TECHNIQUE: The patient presents for ultrasound-guided paracentesis. The procedure, risks and altern atives were discussed with the patient in detail. Oral and written consent were obtained. Time out p rocedure was performed. The patient had no contraindicated allergy or medication history. PT, INR va lues within acceptable limits. Preliminary sonographic evaluation identified right lower quadrant access site. The skin and deeper tissues were anesthetized with 1 percent lidocaine. Under direct sonographic visualization, a parace ntesis catheter was advanced into the peritoneal cavity. Large volume drainage was initiated. Approx imately 10 liters of ascites removed. At the conclusion of the procedure, catheter was withdrawn and a bandage placed at the puncture site. Postprocedure care and precaution instructions were given to the patient. Patient was transferred t o same-day surgery for post paracentesis monitoring and albumin infusion per referring physician prot ocol. IMPRESSION: Ultrasound-guided paracentesis as detailed.
== END | disposition home or self-care (01) ==
LOC: DS 07:40
PROVIDERS: ATTEND Internal Medicine Gastroenterology
PROC: 0W9G3ZX Drainage of Peritoneal Cavity, Percutaneous Approach, Diagnostic (ICD-10-PCS; principal; 2019-01-02)
PROC: BW40ZZZ Ultrasonography of Abdomen (ICD-10-PCS; 2019-01-02)
DX: R18.8 Other ascites (principal)
CPT/HCPCS: 49083; 96365; P9047

== ENCOUNTER → 2019-01-15 | Day surgery (SDC) | payer OTHER ==
[~2019-01-15] MED LIST changes: +ALBUMIN HUMAN 25% 100 ML IV ONE; +ALBUMIN HUMAN 25% 200 ML IV ONE; -ALBUMIN HUMAN 25% 300 ML IV ONE
--- OUTSIDE RECORDS SUMMARY | 2019-01-15 09:20 | XMS REPORT | Clinical Summary ---
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 (HCC) after 01/14/2018 Immunizations Name Dates Previously Given Next Due [...] Taken Blood Pressure 100/50 11/24/2018 11:07 AM MOLD YARD SUPERVISOR Pulse 85 11/24/2018 11:07 AM MOLD YARD SUPERVISOR Temperature 36.3 C (97.3 F) 11/24/2018 11:07 AM MOLD YARD SUPERVISOR Respiratory Rate 19 11/24/2018 11:07 AM MOLD YARD SUPERVISOR Oxygen Saturation 93% 11/24/2018 11:07 AM MOLD YARD SUPERVISOR Inhaled Oxygen Concentration 21% 11/24/2018 2:46 AM MOLD YARD SUPERVISOR Weight 108.5 kg (239 lb 4.8 oz) 11/24/2018 7:00 AM MOLD YARD SUPERVISOR Height 162.6 cm (5' 4") 11/22/2018 7:09 PM MOLD YARD SUPERVISOR Body Mass Index 41.08 11/24/2018 7:00 AM MOLD YARD SUPERVISOR Plan of Treatment Date Type Specialty Care Team Description 01/16/2019 Office Visit Hepatology Dami Storm MD [address] [id number] [facility] A Procedures Procedure Name Priority Date/Time Associated Comments Diagnosis RHYTHM STRIP - SCAN 12/13/2018 7:50 AM MOLD YARD SUPERVISOR POCT-GLUCOSE METER Routine 11/24/2018 7:49 Results for this AM [employer] YARD SUPERVISOR procedure are in the results section. CBC W/PLT COUNT & AUTO Routine 11/24/2018 4:27 Results for this DIFFERENTIAL AM [employer] SUPERVISOR procedure are in the results section. OSMOLALITY, SERUM Routine 11/24/2018 4:27 Results for this AM [employer] YARD SUPERVISOR procedure are in the results section. PHOSPHORUS Routine 11/24/2018 4:27 Results for this AM MOLD YARD SUPERVISOR procedure are in the results section. MAGNESIUM Routine 11/24/2018 4:27 Results for this AM [employer] YARD SUPERVISOR procedure are in the results section. CALCIUM, IONIZED Routine 11/24/2018 4:27 Results for this AM [employer] YARD SUPERVISOR procedure are in the results section. CBC W/PLT COUNT & AUTO Routine 11/24/2018 4:27 Results for this DIFFERENTIAL AM [employer]ARD SUPERVISOR procedure are in the results section. COMPREHENSIVE Routine 11/24/2018 4:27 Results for this METABOLIC PANEL AM [employer]ARD SUPERVISOR procedure are in the results section. US RENAL COMPLETE Routine 11/24/2018 3:20 Results for this AM [employer]ARD SUPERVISOR procedure are in the results section. TROPONIN I Routine 11/23/2018 9:41 Results for this PM [employer]ARD SUPERVISOR procedure are in the results section. ECG 12-LEAD Routine 11/23/2018 9:19 PM MOLD YARD SUPERVISOR Procedure Note - Interface, External Ris In - 11/23/2018 9:22 PM MOLD YARD SUPERVISOR Ventricular Rate 77 BPM Atrial Rate 77 BPM P-R Interval 172 ms QRS Duration 80 ms Q-T Interval 392 ms QTC Calculation(Bazett) 443 ms P [place] 44 degrees R [place] -47 degrees T [place] 50 degrees Normal sinus rhythm Left axis deviation Low voltage QRS Cannot rule out Anterior infarct , age undetermined Abnormal ECG No previous ECGs available ECG 12-LEAD STAT 11/23/2018 9:19 PM MOLD YARD SUPERVISOR POCT-GLUCOSE METER Routine 11/23/2018 8:44 PM MOLD YARD SUPERVISOR SODIUM, RANDOM URINE Routine 11/23/2018 7:01 PM MOLD YARD SUPERVISOR PROTEIN, RANDOM URINE Routine 11/23/2018 7:01 PM MOLD YARD SUPERVISOR POCT-GLUCOSE METER Routine 11/23/2018 5:17 PM MOLD YARD SUPERVISOR POCT-GLUCOSE METER Routine 11/23/2018 2:01 PM MOLD YARD SUPERVISOR US ABDOMEN LIMITED Routine 11/23/2018 1:05 PM MOLD YARD SUPERVISOR US PARACENTESIS Routine 11/23/2018 12:48 PM MOLD YARD SUPERVISOR URINALYSIS W/ MICROSCOPIC Routine 11/23/2018 10:58 AM MOLD YARD SUPERVISOR CBC W/PLT COUNT & AUTO Routine 11/23/2018 8:40 AM MOLD YARD SUPERVISOR Results for this DIFFERENTIAL procedure are in the results section. CBC W/PLT COUNT & AUTO Routine 11/23/2018 8:40 AM MOLD YARD SUPERVISOR Results for this DIFFERENTIAL procedure are in the results section. POCT-GLUCOSE METER Routine 11/23/2018 7:02 AM MOLD YARD SUPERVISOR ALPHA FETOPROTEIN (AFP), Routine 11/23/2018 4:53 AM MOLD YARD SUPERVISOR Results for this TUMOR MARKER procedure are in the results section. HEPATITIS A PANEL Routine 11/23/2018 4:53 AM MOLD YARD SUPERVISOR HEPATITIS B PANEL Routine 11/23/2018 4:53 AM MOLD YARD SUPERVISOR HEPATITIS C ANTIBODY Routine 11/23/2018 4:53 AM MOLD YARD SUPERVISOR ACTIN (SMOOTH MUSCLE) Routine 11/23/2018 4:53 AM MOLD YARD SUPERVISOR Results for this ANTIBODY, IGG procedure are in the results section. ANTI-MITOCHONDRIAL AB, Routine 11/23/2018 4:53 AM MOLD YARD SUPERVISOR REFLEX TO TITER [id number]\\, SERUM Routine 11/23/2018 4:53 AM MOLD YARD SUPERVISOR CERULOPLASMIN Routine 11/23/2018 4:53 AM MOLD YARD SUPERVISOR FERRITIN Routine 11/23/2018 4:53 AM MOLD YARD SUPERVISOR IRON, TIBC, % SAT. (WITHOUT Routine 11/23/2018 4:53 AM MOLD YARD SUPERVISOR Results for this FERRITIN) procedure are in the results section. COMPREHENSIVE METABOLIC Routine 11/23/2018 4:53 AM MOLD YARD SUPERVISOR Results for this PANEL procedure are in the results section. PT/APTT Routine 11/22/2018 11:31 PM MOLD YARD SUPERVISOR COMPREHENSIVE METABOLIC Routine 11/22/2018 11:31 PM MOLD YARD SUPERVISOR Results for this PANEL procedure are in the results section. POCT-GLUCOSE METER Routine 11/22/2018 8:52 PM MOLD YARD SUPERVISOR after 01/14/2018 Results RHYTHM STRIP - SCAN (12/13/2018 7:50 AM MOLD YARD SUPERVISOR) Narrative Performed At POC-Glucose meter (11/24/2018 7:49 AM MOLD YARD SUPERVISOR)Only the most recent of6 resultswithin the time period is included. POC-Glucose Meter 243 (H)Comment: TESTED AT 70 - 110 mg/dL [facility] [address] [facility] [address] Specimen Blood Performing Organization Address City/State/Zipcode Phone Number [address] [phone] [place] Calcium, Ionized (11/24/2018 4:27 AM MOLD YARD SUPERVISOR) Calcium, Ion 1.06 (L) 1.12 - 1.27 mmol/L [facility] pH, Blood 7.41 [facility] Specimen Blood Performing Organization Address City/State/Zipcode Phone Number [facility] [address] [place], [place] [phone] [place] CBC with platelet count + automated diff (11/24/2018 4:27 AM MOLD YARD SUPERVISOR)Only the most recent of2 resultswithin the time period is included. WBC 5.7 3.5 - 10.5 K/L [facility] RBC 3.76 (L) 3.93 - 5.22 M/L [facility] Hemoglobin 10.6 (L) 11.2 - 15.7 GM/DL [facility] Hematocrit 32.9 (L) 34.1 - 44.9 % [facility] MCV 87.5 79.4 - 94.8 fL [facility] MCH 28.2 25.6 - 32.2 pg [facility] MCHC 32.2 32.2 - 35.5 GM/DL [facility] RDW 14.2 11.7 - 14.4 % [facility] Platelets 142 (L) 150 - 450 K/CU MM [facility] MPV 9.8 9.4 - 12.3 fL [facility] nRBC 0 0 - 0 /100 WBC [facility] % Neutros 70 % [facility] % Lymphs 19 % [facility] % Monos 7 % [facility] % Eos 3 % [facility] % Baso 1 % [facility] # Neutros 3.99 1.56 - 6.13 K/L [facility] # Lymphs 1.05 (L) 1.18 - 3.74 K/L [facility] # Monos 0.40 (H) 0.24 - 0.36 K/L [facility] # Eos 0.16 0.04 - 0.36 K/L [facility] # Baso 0.04 0.01 - 0.08 K/L [facility] Immature Granulocytes-Relative 0 0 - 1 % [facility] Specimen Blood Performing Organization Address City/[facility] Phone Number [address] [address] [place] Phosphorus (11/24/2018 4:27 AM MOLD YARD SUPERVISOR) Phosphorus 3.6 2.3 - 4.7 mg/dL [facility] Specimen Blood Performing Organization Address City/[facility] Phone Number [address] [address] [phone] [place] Osmolality, serum (11/24/2018 4:27 AM MOLD YARD SUPERVISOR) Osmolality Serum 301 (H) 275 - 295 mOsm/kg [facility] Specimen Blood Performing Organization Address City/[facility] Phone Number [address] [address] [phone] [place] Magnesium (11/24/2018 4:27 AM MOLD YARD SUPERVISOR) Magnesium 2.0 1.6 - 2.6 mg/dL [facility] Specimen Blood Performing Organization Address [facility] Phone Number [address] [address] CENTER Comprehensive metabolic panel (11/24/2018 4:27 AM MOLD YARD SUPERVISOR)Only the most recent of3 resultswithin the time period is included. Protein, Total 5.5 (L) 6.0 - 8.3 gm/dL [facility] Albumin 3.2 (L) 3.5 - 5.0 g/dL [facility] Alkaline Phosphatase 75 40 - 150 U/L [facility] Total Bilirubin 0.9 0.2 - 1.2 mg/dL [facility] Sodium 132 (L) 136 - 145 meq/L [facility] Potassium 4.3 3.5 - 5.1 meq/L [facility] Chloride 101 98 - 107 meq/L [facility] CO2 25 22 - 29 meq/L [facility] BUN 45 (H) 7 - 21 mg/dL [facility] Creatinine 1.89 (H) 0.57 - 1.25 mg/dL [facility] Glucose 241 (H) 70 - 105 mg/dL [facility] Calcium 8.6 8.4 - 10.2 mg/dL [facility] AST 19 5 - 34 U/L [facility] ALT 10 6 - 55 U/L [facility] EGFR 27Comment: ESTIMATED GFR mL/min/1.73 sq m [facility] IS NOT ACCURATE [facility] CREATININE CLEARANCE IN PREDICTING GLOMERULAR FILTRATION RATE. ESTIMATED GFR IS NOT APPLICABLE FOR DIALYSIS PATIENTS. Specimen Blood Performing Organization Address City/State/Zipcode Phone Number [facility] [address] [place] [address] [phone] CENTER US renal complete (11/24/2018 3:20 AM MOLD YARD SUPERVISOR) Narrative Performed At FINAL REPORT [employer] U/S, RENAL, COMPLETE CLINICAL INDICATION:HEMALATHA/CKD COMPARISON: None [...] MD Report Verified Date/Time:11/24/2018 03:59:04 Reading Location: [address] Transitional Reading Room Procedure Note Interface, External Ris In - 11/24/2018 4:01 AM MOLD YARD SUPERVISOR FINAL REPORT U/S, RENAL, COMPLETE CLINICAL [...] Report Verified Date/Time: 11/24/2018 03:59:04 Reading Location: [facility] C0[facility] Transitional Reading Room Performing Organization Address City/State/Zipcode Phone Number [facility] Troponin I (11/23/2018 9:41 PM MOLD YARD SUPERVISOR) Troponin I <0.01 0.00 - 0.03 ng/mL [facility] Specimen Blood Narrative Performed At Troponin I (TnI) levels must be interpreted [facility] in the context of the presenting symptoms [...] disease, and persistent tachyarrhythmia. Performing Organization Address [facility] Phone Number [address] [address] [place] ECG 12 lead (11/23/2018 9:19 PM MOLD YARD SUPERVISOR) Narrative Performed At Ventricular Rate 77 BPM GE MUSE Atrial Rate 77 BPM P-R Interval 172 ms QRS Duration 80 ms Q-T Interval 392 ms QTC Calculation(Bazett) 443 ms P [place] 44 degrees R [place] -47 degrees T [place] 50 degrees Normal sinus rhythm Left axis deviation Low voltage QRS Cannot rule out Anterior infarct , age undetermined Abnormal ECG No previous ECGs available Confirmed by MD TRAMMELL JOSEPH P ([id number]) on 11/24/2018 6:45:48 AM Procedure Note Interface, External Ris In - 11/24/2018 6:45 AM MOLD YARD SUPERVISOR Ventricular Rate 77 BPM Atrial Rate 77 BPM P-R Interval 172 ms QRS Duration 80 ms Q-T Interval 392 ms QTC Calculation(Bazett) 443 ms P [place] 44 degrees R [place] -47 degrees T [place] 50 degrees Normal sinus rhythm Left axis deviation Low voltage QRS Cannot rule out Anterior infarct , age undetermined Abnormal ECG No previous ECGs available Confirmed by MD TRAMMELL JOSEPH P ([id number]) on 11/24/2018 6:45:48 AM Performing Organization Address [facility] Phone Number GE MUSE Sodium, random urine (11/23/2018 7:01 PM MOLD YARD SUPERVISOR) Sodium Urine <20 meq/L [facility] Specimen Urine Narrative Performed At Reference Range: No Normals [facility] Performing Organization Address [facility]/Zipcode Phone Number [phone] [place], [place] [phone] [place] Protein, random urine (11/23/2018 7:01 PM MOLD YARD SUPERVISOR) Protein, Urine 10 0 - 14 mg/dL [facility] Specimen Urine Performing Organization Address City/State/Zipcode Phone Number [facility] [address] [place] [address] [phone] CENTER US abdomen limited (11/23/2018 1:05 PM MOLD YARD SUPERVISOR) Narrative Performed At FINAL REPORT [employer] ULTRASOUND RIGHT UPPER QUADRANT OF THE ABDOMEN [...] MD Report Verified Date/Time:11/23/2018 13:29:13 Reading Location: [facility] C013T Transitional Reading Room Procedure Note Interface, External Ris In - 11/23/2018 1:31 PM MOLD YARD SUPERVISOR FINAL REPORT ULTRASOUND RIGHT UPPER QUADRANT [...] Report Verified Date/Time: 11/23/2018 13:29:13 Reading Location: [address] Transitional Reading Room Performing Organization Address City/State/Zipcode Phone Number [employer] US paracentesis (11/23/2018 12:48 PM MOLD YARD SUPERVISOR) Narrative Performed At FINAL REPORT [employer] Paracentesis dated 11/23/2018 Procedure: Ultrasound-guided paracentesis. Preprocedure diagnosis: Ascites Postprocedure diagnosis: Ascites Conscious sedation: None. Radiologist: Giovanni Haas M.D. Binder Cutter: None Anesthesia: 1% Xylocaine mixed with sodium bicarbonate local anesthesia. Technique: After obtaining informed consent, ultrasound-guided paracentesis was performed under usual sterile technique. Using a 5 indonesian drainage catheter, puncture was made in the right lower quadrant abdomen. Approximately 16,200 cc of serous fluid was removed. Patient tolerated the procedure well without complication. Complication: None Graft/Implant: None Estimated Blood Loss: None Impression: Ultrasound-guided paracentesis. Signed: Giovanni Haas MD Report Verified Date/Time:11/23/2018 13:01:25 Reading Location: [facility] C013X Ortho Consult Reading Room Procedure Note Interface, External [facility] In - 11/23/2018 1:03 PM MOLD YARD SUPERVISOR FINAL REPORT Paracentesis dated 11/23/2018 Procedure: Ultrasound-guided paracentesis. Preprocedure diagnosis: Ascites Postprocedure diagnosis: Ascites Conscious sedation: None. Radiologist: Giovanni Haas M.D. Binder Cutter: None Anesthesia: 1% Xylocaine mixed with sodium bicarbonate local anesthesia. Technique: After obtaining informed consent, ultrasound-guided paracentesis was performed under usual sterile technique. Using a 5 indonesian drainage catheter, puncture was made in the right lower quadrant abdomen. Approximately 16,200 cc of serous fluid was removed. Patient tolerated the procedure well without complication. Complication: None Graft/Implant: None Estimated Blood Loss: None Impression: Ultrasound-guided paracentesis. Signed: Giovanni Haas MD Report Verified Date/Time: 11/23/2018 13:01:25 Reading Location: [facility] C013X Ortho Consult Reading Room Performing Organization Address City/State/Zipcode Phone Number GE RIS Urinalysis w/ Microscopic (11/23/2018 10:58 AM MOLD YARD SUPERVISOR) Color, UA Yellow [facility] Clarity, UA Clear [facility] Specific Magn[place], UA 1.015 1.001 - 1.035 [facility] pH, UA 5.0 5.0 - 8.0 [facility] Protein, UA Negative Negative [facility] Glucose, UA Negative Negative [facility] Ketones, UA Negative Negative [facility] Bilirubin, UA Negative Negative [facility] Blood, UA Negative Negative [facility] Nitrite, UA Negative Negative [facility] Leukocytes, UA Negative Negative [facility] Urobilinogen, UA 0.2 0.2 - 1.0 mg/dL [facility] RBC, UA <1 /HPF [facility] WBC, UA 2 /HPF [facility] Bacteria, UA Occasional [facility] Squam Epithel, UA 19 /HPF [facility] Hyaline Casts, UA 5 /LPF [facility] Amorphous Crystals Occasional [facility] Specimen Source Urine, Clean Catch [facility] Specimen Urine - Urine, Clean Catch Performing Organization Address City/[facility] Phone Number [address] [address] [phone] [place] Anti-Mitochondrial Ab, reflex to titer (11/23/2018 4:53 AM MOLD YARD SUPERVISOR) Scan Result [facility] Specimen Blood Narrative Performed At Performing Organization Address City/[facility] Phone Number [place] [address] [address] [place] [address] Iron, TIBC, % sat. (without ferritin) (11/23/2018 4:53 AM MOLD YARD SUPERVISOR) Iron 46.0 40.0 - 160.0 ug/dL [facility] TIBC 269 250 - 450 ug/dL [facility] Iron % Saturation 17 (L) 20 - 55 % [facility] Specimen Blood Performing Organization Address [facility] Phone Number [address] [address] [place] Hepatitis B Panel (11/23/2018 4:53 AM MOLD YARD SUPERVISOR) Hep B Core Total Ab NON-REACTIVE Nonreactive [facility] Hep B S Ab <8.0 <8.0 mIU/mL [facility] hepatitis B Surface Ag NON-REACTIVE Nonreactive [facility] Specimen Blood Performing Organization Address City/[facility]/Zipcode Phone Number [address] [address] [phone] [place] Hepatitis A Panel (11/23/2018 4:53 AM MOLD YARD SUPERVISOR) Hep A IgM HEPATITIS A TEST NEGATIVE Nonreactive [facility] Hep A IgG Nonreactive Nonreactive [facility] Specimen Blood Performing Organization Address [facility]/Zipcode Phone Number [address] [address] CENTER Hepatitis C antibody (11/23/2018 4:53 AM MOLD YARD SUPERVISOR) Hepatitis C Ab NON-REACTIVE Nonreactive [facility] Specimen Blood Performing Organization Address [facility] Phone Number [address] [address] CENTER Actin (Smooth Muscle) Antibody, IgG (11/23/2018 4:53 AM MOLD YARD SUPERVISOR) Anti-Smooth Muscle Ab <20 See Note: [...] [facility] EZ [facility] [address] [address] Gilles Moss MD, PhD, LINA Performing Organization Address [facility] Phone Number [place] [address] [address] [place] [address] [id number] (11/23/2018 4:53 AM MOLD YARD SUPERVISOR) A-1 Antitrypsin 202.70 (H) 90.00 - 200.00 mg/dL [facility] Specimen Blood Performing Organization Address [facility]/Zipcode Phone Number [address] [address] CENTER Ceruloplasmin (11/23/2018 4:53 AM MOLD YARD SUPERVISOR) Ceruloplasmin 28 18 - 53 mg/dL [facility] Comment: Adults:Males: 18-36 mg/dL Females: 18-53 mg/dL Pediatrics:Males (mg/dL)Females (mg/dL) 0-30 Days 8-25 3-28 31 Days-11 Month 1515-43 1-3 [id number] 4-6 [id number] 7-9 [id number] 10-12 [id number] 13-15 [id number] 16-18 [id number] The pediatric ranges are derived from the following criteria: Sacha MONACO, Juwan BARONE, Poornima J et al Pediatric reference ranges for [id number] and ceruloplasmin. Clin. Chem 1997; 43:S1999 Pediatric Reference Ranges, 2nd., [place] Sachaet al. editors. [employer], [place], [place] 1997. Specimen Blood Narrative Performed At Performing Lab [employer] [facility] *[facility], [address] [place] [phone] Noe Rosario MD, PhD Performing Organization Address [facility] Phone Number [place] [address] [facility] [address] [facility] Alpha fetoprotein (AFP), tumor marker (11/23/2018 4:53 AM MOLD YARD SUPERVISOR) Alpha-Fetoprotein 2.1 <10.0 ng/mL [facility] Specimen Blood Performing Organization Address City/[facility]/Zipcode Phone Number [address] [address] CENTER Ferritin (11/23/2018 4:53 AM MOLD YARD SUPERVISOR) Ferritin 52 5 - 275 ng/mL [facility] Specimen Blood Performing Organization Address [facility]/Zipcode Phone Number [address] [address] CENTER PT/aPTT (11/22/2018 11:31 PM MOLD YARD SUPERVISOR) Protime 13.3 11.7 - 14.7 seconds [facility] INR 1.0 <=5.9 [facility] PTT 26.9 22.5 - 36.0 seconds [facility] Specimen Blood Narrative Performed At RECOMMENDED COUMADIN/WARFARIN INR THERAPY [facility] RANGES STANDARD DOSE: 2.0 - 3.0 Includes: PROPHYLAXIS for venous thrombosis, systemic embolization; TREATMENT for venous thrombosis and/or pulmonary embolus. HIGH RISK: Target INR is 2.5-3.5 for patients with mechanical heart valves. Performing Organization Address City/State/Zipcode Phone Number [facility] [address] [place] [address] CENTER after 01/14/2018 Insurance Payer Benefit Plan / Group Subscriber ID Type Phone Address ANISA SHELL xxxxxxxxxxx Advance Directives For more information, please contact:[facility] [place], [place] [phone] Code Status Date Activated Date Inactivated Comments Full Code 11/22/2018 10:01 PM This code status was determined by: Patient
--- OUTSIDE RECORDS SUMMARY | 2019-01-15 09:21 | XMS REPORT ---
:1960 [facility] Address [address] [place] [address] Dr. Melton [address] [place] [id number] Care Team Providers Name Role Phone ZEB [...] Value Reference Range Comments SCAN RESULT (test bcaw=[id number]) OSMOLALITY, [id number] 10:30:00 Test Item Value Reference Range Comments OSMOLALITY, SERUM (BEAKER) (test uaoh=822) 301 mOsm/kg 275-295 POCT-GLUCOSE [id number] 08:26:00 Test Item Value Reference Range Comments POC-GLUCOSE METER (BEAKER) 243 mg/dL 70-110 TESTED AT [facility] [address] [place] [address] (test ctma=9339) [facility] [address] COMPREHENSIVE METABOLIC [id number] 08:05:00 Test Item Value Reference Range Comments TOTAL PROTEIN (BEAKER) 5.5 gm/dL 6.0-8.3 (test iwje=691) ALBUMIN (BEAKER) (test 3.2 g/dL 3.5-5.0 fvbg=6687) ALKALINE PHOSPHATASE 75 U/L 40-150 (BEAKER) (test asxy=102) BILIRUBIN TOTAL (BEAKER) 0.9 mg/dL 0.2-1.2 (test vllc=434) SODIUM (BEAKER) (test 132 meq/L 136-145 pvka=658) POTASSIUM (BEAKER) (test 4.3 meq/L 3.5-5.1 zvck=240) CHLORIDE (BEAKER) (test 101 meq/L 98-107 glps=296) CO2 (BEAKER) (test 25 meq/L 22-29 pnbt=848) BLOOD UREA NITROGEN 45 mg/dL 7-21 (BEAKER) (test lkxu=504) CREATININE (BEAKER) (test 1.89 mg/dL 0.57-1.25 anwj=519) GLUCOSE RANDOM (BEAKER) 241 mg/dL 70-105 (test gpwq=548) CALCIUM (BEAKER) (test 8.6 mg/dL 8.4-10.2 blhg=028) AST (SGOT) (BEAKER) (test 19 U/L 5-34 kwrz=392) ALT (SGPT) (BEAKER) (test 10 U/L 6-55 ewpo=027) EGFR (BEAKER) (test 27 mL/min/1.73 sq m ESTIMATED GFR IS NOT vaga=0976) ACCURATE CREATININE CLEARANCE IN PREDICTING GLOMERULAR FILTRATION RATE. ESTIMATED GFR IS NOT APPLICABLE FOR DIALYSIS PATIENTS. [id number] 08:02:00 Test Item Value Reference Range Comments PHOSPHORUS (BEAKER) (test elps=554) 3.6 mg/dL 2.3-4.7 [id number] 08:02:00 Test Item Value Reference Range Comments MAGNESIUM (BEAKER) (test uvoq=266) 2.0 mg/dL 1.6-2.6 CBC W/PLT COUNT & AUTO [id number] 05:40:00 Test Item Value Reference Range Comments WHITE BLOOD CELL COUNT (BEAKER) (test zfvt=729) 5.7 K/ L 3.5-10.5 RED BLOOD CELL COUNT (BEAKER) (test idag=585) 3.76 M/ L 3.93-5.22 HEMOGLOBIN (BEAKER) (test qyii=077) 10.6 GM/DL 11.2-15.7 HEMATOCRIT (BEAKER) (test rtjs=361) 32.9 % 34.1-44.9 MEAN CORPUSCULAR VOLUME (BEAKER) (test sdgv=093) 87.5 fL 79.4-94.8 MEAN CORPUSCULAR HEMOGLOBIN (BEAKER) (test 28.2 pg 25.6-32.2 qlrc=582) MEAN CORPUSCULAR HEMOGLOBIN CONC (BEAKER) (test 32.2 GM/DL 32.2-35.5 ovtg=735) RED CELL DISTRIBUTION WIDTH (BEAKER) (test 14.2 % 11.7-14.4 ldot=255) PLATELET COUNT (BEAKER) (test iame=320) 142 K/CU MM 150-450 MEAN PLATELET VOLUME (BEAKER) (test yfax=935) 9.8 fL 9.4-12.3 NUCLEATED RED BLOOD CELLS (BEAKER) (test 0 /100 WBC 0-0 xtqv=940) NEUTROPHILS RELATIVE PERCENT (BEAKER) (test 70 % frkh=416) LYMPHOCYTES RELATIVE PERCENT (BEAKER) (test 19 % dmrk=761) MONOCYTES RELATIVE PERCENT (BEAKER) (test 7 % rljx=045) EOSINOPHILS RELATIVE PERCENT (BEAKER) (test 3 % zzug=930) BASOPHILS RELATIVE PERCENT (BEAKER) (test 1 % fazs=645) NEUTROPHILS ABSOLUTE COUNT (BEAKER) (test 3.99 K/ L 1.56-6.13 diss=735) LYMPHOCYTES ABSOLUTE COUNT (BEAKER) (test 1.05 K/ L 1.18-3.74 txzd=099) MONOCYTES ABSOLUTE COUNT (BEAKER) (test 0.40 K/ L 0.24-0.36 mwbu=437) EOSINOPHILS ABSOLUTE COUNT (BEAKER) (test 0.16 K/ L 0.04-0.36 exdt=258) BASOPHILS ABSOLUTE COUNT (BEAKER) (test 0.04 K/ L 0.01-0.08 bpbs=458) IMMATURE GRANULOCYTES-RELATIVE PERCENT (BEAKER) 0 % 0-1 (test xhus=5862) CALCIUM, [id number] 05:17:00 Test Item Value Reference Range Comments CALCIUM IONIZED (BEAKER) (test xqzd=429) 1.06 mmol/L 1.12-1.27 PH, BLOOD (BEAKER) (test eqph=1324) 7.41 U/S, RENAL, [id number] 03:59:00Reason for exam:->HEMALATHA/CKDShould this be performed at [...] Wilson Verified Date/Time: 11/24/2018 03:59:04 Reading Location: [facility] C013 Transitional Reading Room TROPONIN [id number] 23:19:00 Test Item Value Reference Range Comments TROPONIN I (BEAKER) (test qasr=330) < ng/mL 0.00-0.03 Troponin I (TnI) levels [...] acidosis, acute neurological disease, and persistent tachyarrhythmia.POCT-GLUCOSE [id number] 21:12:00 Test Item Value Reference Range Comments POC-GLUCOSE METER (BEAKER) 277 mg/dL 70-110 TESTED AT [address] (test ehzz=3401) [facility] [address] PROTEIN, RANDOM [id number] 20:11:00 Test Item Value Reference Range Comments PROTEIN, URINE (BEAKER) (test dyin=2491) 10 mg/dL 0-14 SODIUM, RANDOM [id number] 20:05:00 Test Item Value Reference Range Comments SODIUM URINE (BEAKER) (test pwuw=693) < meq/L Reference Range: No NormalsPOCT-GLUCOSE [id number] 17:28:00 Test Item Value Reference Range Comments POC-GLUCOSE METER (BEAKER) 291 mg/dL 70-110 TESTED AT [address] (test usrv=0987) [facility] [address] POCT-GLUCOSE [id number] 14:02:00 Test Item Value Reference Range Comments POC-GLUCOSE METER (BEAKER) 148 mg/dL 70-110 TESTED AT [facility] [address] [facility] (test zjkq=9133) [facility] [address] URINALYSIS W/ [id number] 13:32:00 Test Item Value Reference Range Comments COLOR (BEAKER) (test tfhs=736) Yellow CLARITY (BEAKER) (test jspw=540) Clear SPECIFIC GRAVITY UA (BEAKER) (test 1.015 1.001-1.035 cjmx=599) PH UA (BEAKER) (test rfat=189) 5.0 5.0-8.0 PROTEIN UA (BEAKER) (test djqa=766) Negative Negative GLUCOSE UA (BEAKER) (test livw=933) Negative Negative KETONES UA (BEAKER) (test ucdj=388) Negative Negative BILIRUBIN UA (BEAKER) (test vtef=758) Negative Negative BLOOD UA (BEAKER) (test nzar=511) Negative Negative NITRITE UA (BEAKER) (test pmko=355) Negative Negative LEUKOCYTE ESTERASE UA (BEAKER) (test Negative Negative ldlu=191) UROBILINOGEN UA (BEAKER) (test aaco=346) 0.2 mg/dL 0.2-1.0 RBC UA (BEAKER) (test ouwv=515) < /HPF WBC UA (BEAKER) (test kugu=972) 2 /HPF BACTERIA (BEAKER) (test ofuf=065) Occasional SQUAMOUS EPITHELIAL (BEAKER) (test 19 /HPF sdjz=938) HYALINE CASTS (BEAKER) (test yxoq=877) 5 /LPF AMORPHOUS CRYSTALS (BEAKER) (test Occasional xwcx=3880) SOURCE(BEAKER) (test rmmr=1304) Urine, Clean Catch U/S, ABDOMINAL, [id number] 13:29:00Abdomen limited area? Add comment if clarification [...] Valles Verified Date/Time: 11/23/2018 13:29:13 Reading Location: [address] Transitional Reading Room U/S, [id number] 13:01:00Reason for exam:->Therapeutic paracentesisFINAL REPORT Paracentesis dated 11/23/2018 Procedure: Ultrasound-guided paracentesis. Preprocedure diagnosis: Ascites Postprocedure diagnosis: Ascites Conscious sedation: None. Radiologist: Giovanni Haas M.D. Reed Press Feeder: None Anesthesia: 1% Xylocaine mixed with sodium bicarbonate local anesthesia. Technique: After obtaining informed consent, ultrasound-guided paracentesis was performed under usual sterile technique. Using a 5 maori drainage catheter , puncture was made in the right lower quadrant abdomen. Approximately 16,200 cc of serous fluid was removed. Patient tolerated the procedure well without complication. Complication: None Graft/Implant: None Estimated Blood Loss: None Impression: Ultrasound-guided paracentesis. Signed: Giovanni Haas Verified Date/Time: 11/23/2018 13:01:25 Reading Location: [facility] C013X Ortho Consult Reading Room Electronically signedby: GIOVANNI HAAS M.D. on 2018 01:01 PMCBC W/PLT COUNT & AUTO [id number] 08:55:00 Test Item Value Reference Range Comments WHITE BLOOD CELL COUNT (BEAKER) (test ktof=496) 5.7 K/ L 3.5-10.5 RED BLOOD CELL COUNT (BEAKER) (test tdlc=114) 3.72 M/ L 3.93-5.22 HEMOGLOBIN (BEAKER) (test pnil=499) 10.5 GM/DL 11.2-15.7 HEMATOCRIT (BEAKER) (test pctk=672) 32.5 % 34.1-44.9 MEAN CORPUSCULAR VOLUME (BEAKER) (test akjd=607) 87.4 fL 79.4-94.8 MEAN CORPUSCULAR HEMOGLOBIN (BEAKER) (test 28.2 pg 25.6-32.2 rtpv=865) MEAN CORPUSCULAR HEMOGLOBIN CONC (BEAKER) (test 32.3 GM/DL 32.2-35.5 jioe=074) RED CELL DISTRIBUTION WIDTH (BEAKER) (test 14.5 % 11.7-14.4 xywk=625) PLATELET COUNT (BEAKER) (test xpsp=013) 148 K/CU MM 150-450 MEAN PLATELET VOLUME (BEAKER) (test jprd=742) 9.4 fL 9.4-12.3 NUCLEATED RED BLOOD CELLS (BEAKER) (test 0 /100 WBC 0-0 omlo=296) NEUTROPHILS RELATIVE PERCENT (BEAKER) (test 63 % glzz=554) LYMPHOCYTES RELATIVE PERCENT (BEAKER) (test 23 % berm=365) MONOCYTES RELATIVE PERCENT (BEAKER) (test 8 % ivaz=364) EOSINOPHILS RELATIVE PERCENT (BEAKER) (test 5 % nqln=292) BASOPHILS RELATIVE PERCENT (BEAKER) (test 1 % vnke=504) NEUTROPHILS ABSOLUTE COUNT (BEAKER) (test 3.61 K/ L 1.56-6.13 qkzf=404) LYMPHOCYTES ABSOLUTE COUNT (BEAKER) (test 1.29 K/ L 1.18-3.74 zuue=080) MONOCYTES ABSOLUTE COUNT (BEAKER) (test 0.47 K/ L 0.24-0.36 cuqx=094) EOSINOPHILS ABSOLUTE COUNT (BEAKER) (test 0.28 K/ L 0.04-0.36 kwuq=473) BASOPHILS ABSOLUTE COUNT (BEAKER) (test 0.05 K/ L 0.01-0.08 xhhl=374) IMMATURE GRANULOCYTES-RELATIVE PERCENT (BEAKER) 0 % 0-1 (test dyur=4331) POCT-GLUCOSE [id number] 07:43:00 Test Item Value Reference Range Comments POC-GLUCOSE METER (BEAKER) 196 mg/dL 70-110 TESTED AT [facility] [address] [facility] (test elus=0702) [facility] [address] [id number] 06:53:00 Test Item Value Reference Range Comments FERRITIN (BEAKER) (test bqsz=417) 52 ng/mL 5-275 HEPATITIS B [id number] 06:21:00 Test Item Value Reference Range Comments HEPATITIS B CORE TOTAL ANTIBODY (BEAKER) (test Nonreactive Nonreactive giey=624) HEPATITIS B SURFACE ANTIBODY (BEAKER) (test < mIU/mL <8.0 vfdw=113) HEPATITIS B SURFACE ANTIGEN (2) (BEAKER) (test Nonreactive Nonreactive dgbf=4968) HEPATITIS C [id number] 06:20:00 Test Item Value Reference Range Comments HEPATITIS C ANTIBODY (BEAKER) (test jlor=058) Nonreactive Nonreactive HEPATITIS A [id number] 06:20:00 Test Item Value Reference Range Comments HEPATITIS A IGM ANTIBODY (BEAKER) (test Nonreactive Nonreactive dycn=279) HEPATITIS A IGG ANTIBODY (BEAKER) (test Nonreactive Nonreactive hmaw=9022) ALPHA FETOPROTEIN (AFP), TUMOR [id number] 06:14:00 Test Item Value Reference Range Comments ALPHA-FETOPROTEIN (BEAKER) (test iojx=2482) 2.1 ng/mL <10.0 COMPREHENSIVE METABOLIC [id number] 06:01:00 Test Item Value Reference Range Comments TOTAL PROTEIN (BEAKER) 5.9 gm/dL 6.0-8.3 (test njzw=960) ALBUMIN (BEAKER) (test 2.9 g/dL 3.5-5.0 isri=1659) ALKALINE PHOSPHATASE 96 U/L 40-150 (BEAKER) (test ulfy=528) BILIRUBIN TOTAL (BEAKER) 0.5 mg/dL 0.2-1.2 (test bmyu=454) SODIUM (BEAKER) (test 132 meq/L 136-145 otbd=277) POTASSIUM (BEAKER) (test 4.3 meq/L 3.5-5.1 avps=442) CHLORIDE (BEAKER) (test 100 meq/L 98-107 ssyn=288) CO2 (BEAKER) (test 26 meq/L 22-29 tbhr=652) BLOOD UREA NITROGEN 50 mg/dL 7-21 (BEAKER) (test xpfz=908) CREATININE (BEAKER) (test 2.27 mg/dL 0.57-1.25 homg=427) GLUCOSE RANDOM (BEAKER) 219 mg/dL 70-105 (test nust=192) CALCIUM (BEAKER) (test 8.8 mg/dL 8.4-10.2 yvpl=479) AST (SGOT) (BEAKER) (test 22 U/L 5-34 owrr=186) ALT (SGPT) (BEAKER) (test 15 U/L 6-55 neuw=731) EGFR (BEAKER) (test 22 mL/min/1.73 sq m ESTIMATED GFR IS NOT grzf=7068) ACCURATE CREATININE CLEARANCE IN PREDICTING GLOMERULAR FILTRATION RATE. ESTIMATED GFR IS NOT APPLICABLE FOR DIALYSIS PATIENTS. IRON, TIBC, % SAT. (WITHOUT FERRITIN)2018-11-23 05:55:00 Test Item Value Reference Range Comments IRON (BEAKER) (test ugkk=899) 46.0 ug/dL 40.0-160.0 TOTAL IRON BINDING CAPACITY (BEAKER) (test 269 ug/dL 250-450 brmd=494) IRON % SATURATION (2) (BEAKER) (test mrnm=1494) 17 % 20-55 [id number] 05:54:00 Test Item Value Reference Range Comments ALPHA-1 ANTITRYPSIN (BEAKER) (test czce=562) 202.70 mg/dL 90.00-200.00 COMPREHENSIVE METABOLIC [id number] 00:16:00 Test Item Value Reference Range Comments TOTAL PROTEIN (BEAKER) 6.8 gm/dL 6.0-8.3 (test sruk=743) ALBUMIN (BEAKER) (test 3.3 g/dL 3.5-5.0 nybd=7527) ALKALINE PHOSPHATASE 114 U/L 40-150 (BEAKER) (test jzlz=656) BILIRUBIN TOTAL (BEAKER) 0.6 mg/dL 0.2-1.2 (test ksvg=624) SODIUM (BEAKER) (test 130 meq/L 136-145 otwv=926) POTASSIUM (BEAKER) (test 4.4 meq/L 3.5-5.1 oukd=734) CHLORIDE (BEAKER) (test 99 meq/L 98-107 wqfi=527) CO2 (BEAKER) (test 22 meq/L 22-29 ropi=959) BLOOD UREA NITROGEN 46 mg/dL 7-21 (BEAKER) (test kqty=596) CREATININE (BEAKER) (test 2.40 mg/dL 0.57-1.25 ckup=667) GLUCOSE RANDOM (BEAKER) 153 mg/dL 70-105 (test jpmd=160) CALCIUM (BEAKER) (test 9.1 mg/dL 8.4-10.2 fono=111) AST (SGOT) (BEAKER) (test 25 U/L 5-34 bexq=863) ALT (SGPT) (BEAKER) (test 17 U/L 6-55 efig=823) EGFR (BEAKER) (test 21 mL/min/1.73 sq m ESTIMATED GFR IS NOT zrcv=5634) ACCURATE CREATININE CLEARANCE IN PREDICTING GLOMERULAR FILTRATION RATE. ESTIMATED GFR IS NOT APPLICABLE FOR DIALYSIS PATIENTS. PT/[id number] 23:52:00 Test Item Value Reference Range Comments PROTIME (BEAKER) (test otnk=486) 13.3 seconds 11.7-14.7 INR (BEAKER) (test ckba=111) 1.0 <=5.9 PARTIAL THROMBOPLASTIN TIME (BEAKER) (test 26.9 seconds 22.5-36.0 tzuf=073) RECOMMENDED COUMADIN/WARFARIN INR THERAPY RANGESSTANDARD DOSE: 2.0 - 3.0 Includes: PROPHYLAXIS forvenous thrombosis, systemic embolization; TREATMENT for venous thrombosis and/or pulmonary embolus.HIGH RISK: Target INR is 2.5-3.5 for patients with mechanical heart valves.POCT-GLUCOSE [id number] 21:25:00 Test Item Value Reference Range Comments POC-GLUCOSE METER (BEAKER) 178 mg/dL 70-110 TESTED AT [facility] [address] [facility] (test sfro=8690) [facility] [address]
--- NOTE | 2019-01-15 11:49 | RAD REPORT ---
EXAM DESCRIPTION: US - Paracentesis Proc Guidance - 01/15/2019 10:46 am CLINICAL HISTORY: Liver disease with ascites FINDINGS: The risks, benefits and alternatives to the procedure were explained to the patient and in formed consent obtained. The skin and subcutaneous tissues were anesthetized with Lidocaine. Under sonographic guidance an 8 Occitan catheter was placed into the right lower quadrant. 10 Liters o f yellow ascites removed. The patient experienced no immediate complication. IMPRESSION: Paracentesis
== END ==
LOC: DS 09:15
PROVIDERS: ATTEND Internal Medicine Gastroenterology
DX: K74.69 Other cirrhosis of liver (principal); R18.8 Other ascites; K75.81 Nonalcoholic steatohepatitis (NASH)
CPT/HCPCS: 36415; 49083; 85730; 96365; P9047

== ENCOUNTER 2019-02-15 18:14 | Emergency (ER) | payer OTHER ==
--- OUTSIDE RECORDS SUMMARY | 2019-02-15 18:22 | XMS REPORT | Clinical Summary ---
:1960 Author Organization [facility] Address [address] [place] [address] Care Team Providers Name Role Phone Unavailable Primary Care Provider Unavailable Allergies No Known Allergies Medications Medication Sig Dispensed Refills Start Date End Date Status furosemide (LASIX) Take 1.5 45 tablet 1 11/24/2018 11/24/2019 Active 40 MG tablet tablets (60 mg total) by mouth daily. spironolactone Take 1 tablet 30 tablet 1 11/24/2018 11/24/2019 Active (ALDACTONE) 100 MG (100 mg tablet total) by mouth daily. levothyroxine Take 250 mcg 0 01/14/2019 Active (SYNTHROID, by mouth LEVOTHROID) 125 MCG Every morning tablet on an empty stomach . lactulose Take 20 g by 0 Active (CHRONULAC) 10 mouth 3 gram/15 mL (15 mL) (three) times solution daily. gabapentin Take 100 mg 0 Active (NEURONTIN) 100 MG by mouth. capsule docusate sodium Take 100 mg 0 Active (COLACE) 100 MG by mouth capsule daily. glimepiride (AMARYL) Take 1 mg by 0 Active 1 MG tablet mouth every morning before breakfast. ciprofloxacin HCl Take by 0 Active (CIPRO ORAL) mouth. levothyroxine Take 1 tablet 30 tablet 1 11/25/2018 01/16/2019 Discontinued (SYNTHROID, (200 mcg LEVOTHROID) 200 MCG total) by tablet mouth Every morning on an empty stomach. ciprofloxacin HCl Take 500 mg 0 01/16/2019 Discontinued (CIPRO) 500 MG by mouth. 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 02/13/2019 Orders Only Hepatology JonelleSahilan Other ascites SpringSHAYY (Primary Dx) 02/12/2019 Documentation Hepatology Sonny Sal NP 02/11/2019 Telephone Hepatology Kimberlee Back Appointment RN 02/06/2019 Abstract Hepatology Nova García, MA 02/04/2019 Abstract Hepatology Anali Reed RN 02/03/2019 Abstract Hepatology Nova García, MA 01/23/2019 Abstract Transplant Nova García, MA 01/20/2019 Documentation Hepatology Kristi Ma RN 01/16/2019 Office Visit Hepatology Dami Storm Other ascites (Primary Dx); MD Aylin Liver cirrhosis secondary to WYNN (HCC); Sonny Sal Shortness of breath SpringSHAYY 11/23/2018 Orders Only General Internal Medicine 11/23/2018 Travel 11/22/2018 - Hospital Encounter General Internal Iris, HEMALATHA ( acute kidney injury) (HCC); 11/24/2018 Medicine MD Esme Other ascites; Athreya, Liver cirrhosis secondary to WYNN (HCC); Nadege Mendez MD Morbid obesity (HCC); Destiney Esqueda Hepatorenal syndrome (HCC); MD Abebe Hyperkalemia; Portal hypertension (HCC); CKD (chronic kidney disease) stage 4, GFR 15-29 ml/min (HCC); Secondary esophageal varices without bleeding (HCC); Diabetes mellitus type 2 in obese (HCC) after 02/14/2018 Immunizations Name Dates Previously Given Next Due [...] Vital Sign Reading Time Taken Blood Pressure 97/62 01/16/2019 11:50 AM CDT Pulse 76 01/16/2019 11:50 AM CDT Temperature 37 C (98.6 F) 01/16/2019 11:50 AM CDT Respiratory Rate 16 01/16/2019 11:50 AM CDT Oxygen Saturation 96% 01/16/2019 11:50 AM CDT Inhaled Oxygen Concentration 21% 11/24/2018 2:46 AM [facility] Weight 114.8 kg (253 lb) 01/16/2019 11:50 AM CDT Height 162.6 cm (5' 4") 01/16/2019 11:50 AM CDT Body Mass Index 43.43 01/16/2019 11:50 AM CDT Plan of Treatment Date Type Specialty Care Team Description 03/11/2019 Appointment Radiology Maritza Queen MD [address] [place], [place] [phone] 03/11/2019 Appointment Cardiology Maritza Queen MD [address] [place], [place] [phone] 03/19/2019 Office Visit Hepatology Resource, [facility] A Procedures Procedure Name Priority Date/Time Associated Comments Diagnosis RHYTHM STRIP - SCAN 01/21/2019 8:20 AM CDT CBC W/PLT COUNT & AUTO Routine 01/16/2019 2:25 Liver cirrhosis Results for this DIFFERENTIAL PM CDT secondary to WYNN procedure are in (HCC) the results section. ALPHA FETOPROTEIN Routine 01/16/2019 2:25 Liver cirrhosis Results for this (AFP), TUMOR MARKER PM CDT secondary to WYNN procedure are in (HCC) the results section. PROTHROMBIN TIME/INR Routine 01/16/2019 2:25 Liver cirrhosis Results for this PM CDT secondary to WYNN procedure are in (HCC) the results section. CBC W/PLT COUNT & AUTO Routine 01/16/2019 2:25 Liver cirrhosis Results for this DIFFERENTIAL PM CDT secondary to WYNN procedure are in (HCC) the results section. HEPATIC FUNCTION PANEL Routine 01/16/2019 2:25 Liver cirrhosis Results for this PM CDT secondary to WYNN procedure are in (HCC) the results section. BASIC METABOLIC PANEL Routine 01/16/2019 2:25 Liver cirrhosis Results for this (7) PM CDT secondary to WYNN procedure are in (HCC) the results section. RHYTHM STRIP - SCAN 12/13/2018 7:50 AM [facility] POCT-GLUCOSE METER Routine 11/24/2018 7:49 Results for this AM [facility] procedure are in the results section. CBC W/PLT COUNT & AUTO Routine 11/24/2018 4:27 Results for this DIFFERENTIAL AM [facility] procedure are in the results section. OSMOLALITY, SERUM Routine 11/24/2018 4:27 Results for this AM [facility] procedure are in the results section. PHOSPHORUS Routine 11/24/2018 4:27 Results for this AM [facility] procedure are in the results section. MAGNESIUM Routine 11/24/2018 4:27 Results for this AM [facility] procedure are in the results section. CALCIUM, IONIZED Routine 11/24/2018 4:27 Results for this AM [facility] procedure are in the results section. CBC W/PLT COUNT & AUTO Routine 11/24/2018 4:27 Results for this DIFFERENTIAL AM [facility] procedure are in the results section. COMPREHENSIVE Routine 11/24/2018 4:27 Results for this METABOLIC PANEL AM [facility] procedure are in the results section. US RENAL COMPLETE Routine 11/24/2018 3:20 Results for this AM [facility] procedure are in the results section. TROPONIN I Routine 11/23/2018 9:41 Results for this PM [facility] procedure are in the results section. ECG 12-LEAD Routine 11/23/2018 9:19 PM [facility] Procedure Note - Interface, External Ris In - 11/23/2018 9:22 PM [facility] Ventricular Rate 77 BPM Atrial Rate 77 BPM P-R Interval 172 ms QRS Duration 80 ms Q-T Interval 392 ms QTC Calculation(Bazett) 443 ms P [place] 44 degrees R Lowell -47 degrees T [place] 50 degrees Normal sinus rhythm Left axis deviation Low voltage QRS Cannot rule out Anterior infarct , age undetermined Abnormal ECG No previous ECGs available ECG 12-LEAD STAT 11/23/2018 9:19 PM [facility] POCT-GLUCOSE METER Routine 11/23/2018 8:44 PM [facility] SODIUM, RANDOM URINE Routine 11/23/2018 7:01 PM [facility] PROTEIN, RANDOM URINE Routine 11/23/2018 7:01 PM [facility] POCT-GLUCOSE METER Routine 11/23/2018 5:17 PM [facility] POCT-GLUCOSE METER Routine 11/23/2018 2:01 PM [facility] US ABDOMEN LIMITED Routine 11/23/2018 1:05 PM [facility] US PARACENTESIS Routine 11/23/2018 12:48 PM [facility] URINALYSIS W/ MICROSCOPIC Routine 11/23/2018 10:58 AM [facility] CBC W/PLT COUNT & AUTO Routine 11/23/2018 8:40 AM [facility] Results for this DIFFERENTIAL procedure are in the results section. CBC W/PLT COUNT & AUTO Routine 11/23/2018 8:40 AM [facility] Results for this DIFFERENTIAL procedure are in the results section. POCT-GLUCOSE METER Routine 11/23/2018 7:02 AM [facility] ALPHA FETOPROTEIN (AFP), Routine 11/23/2018 4:53 AM [facility] Results for this TUMOR MARKER procedure are in the results section. HEPATITIS A PANEL Routine 11/23/2018 4:53 AM [facility] HEPATITIS B PANEL Routine 11/23/2018 4:53 AM [facility] HEPATITIS C ANTIBODY Routine 11/23/2018 4:53 AM [facility] ACTIN (SMOOTH MUSCLE) Routine 11/23/2018 4:53 AM [facility] Results for this ANTIBODY, IGG procedure are in the results section. ANTI-MITOCHONDRIAL AB, Routine 11/23/2018 4:53 AM [facility] REFLEX TO TITER [id number]\\, SERUM Routine 11/23/2018 4:53 AM [facility] CERULOPLASMIN Routine 11/23/2018 4:53 AM [facility] FERRITIN Routine 11/23/2018 4:53 AM [facility] IRON, TIBC, % SAT. (WITHOUT Routine 11/23/2018 4:53 AM [facility] Results for this FERRITIN) procedure are in the results section. COMPREHENSIVE METABOLIC Routine 11/23/2018 4:53 AM [facility] Results for this PANEL procedure are in the results section. PT/APTT Routine 11/22/2018 11:31 PM [facility] COMPREHENSIVE METABOLIC Routine 11/22/2018 11:31 PM [facility] Results for this PANEL procedure are in the results section. POCT-GLUCOSE METER Routine 11/22/2018 8:52 PM [facility] after 02/14/2018 Results RHYTHM STRIP - SCAN (01/21/2019 8:20 AM CDT)Only the most recent of2 resultswithin the time period is included. Narrative Performed At CBC with platelet count + automated diff (01/16/2019 2:25 PM CDT)Only the most recent of3 resultswithin the time period is included. WBC 7.8 3.5 - 10.5 K/L [facility] RBC 4.49 3.93 - 5.22 M/L [facility] Hemoglobin 12.4 11.2 - 15.7 GM/DL [facility] Hematocrit 39.1 34.1 - 44.9 % [facility] MCV 87.1 79.4 - 94.8 fL [facility] MCH 27.6 25.6 - 32.2 pg [facility] MCHC 31.7 (L) 32.2 - 35.5 GM/DL [facility] RDW 14.0 11.7 - 14.4 % [facility] Platelets 196 150 - 450 K/CU MM [facility] MPV 9.9 9.4 - 12.3 fL [facility] nRBC 0 0 - 0 /100 WBC [facility] % Neutros 72 % [facility] % Lymphs 18 % [facility] % Monos 6 % [facility] % Eos 4 % [facility] % Baso 1 % [facility] # Neutros 5.62 1.56 - 6.13 K/L [facility] # Lymphs 1.37 1.18 - 3.74 K/L [facility] # Monos 0.43 (H) 0.24 - 0.36 K/L [facility] # Eos 0.28 0.04 - 0.36 K/L [facility] # Baso 0.07 0.01 - 0.08 K/L [facility] Immature Granulocytes-Relative 0 0 - 1 % [facility] Specimen Blood Performing Organization Address City/[facility] Cent[facility]ode Phone Number [address] [address] [phone] [place] Alpha fetoprotein (AFP), tumor marker (01/16/2019 2:25 PM CDT)Only the most recent of2 resultswithin the time period is included. Alpha-Fetoprotein 3.4 <10.0 ng/mL [facility] Specimen Blood Performing Organization Address [facility] Centercode Phone Number [address] [phone] [place] Pro-time/INR (01/16/2019 2:25 PM CDT) Protime 12.8 11.7 - 14.7 seconds [facility] INR 1.0 <=5.9 [facility] Specimen Blood Narrative Performed At RECOMMENDED COUMADIN/WARFARIN INR THERAPY [facility] RANGES STANDARD DOSE: 2.0 - 3.0 Includes: PROPHYLAXIS for venous thrombosis, systemic embolization; TREATMENT for venous thrombosis and/or pulmonary embolus. HIGH RISK: Target INR is 2.5-3.5 for patients with mechanical heart valves. Performing Organization Address [facility] Cent[facility]ode Phone Number [address] [address] [place] Hepatic function panel (01/16/2019 2:25 PM CDT) Protein, Total 6.9 6.0 - 8.3 gm/dL [facility] Albumin 3.7 3.5 - 5.0 g/dL [facility] Total Bilirubin 0.8 0.2 - 1.2 mg/dL [facility] Bilirubin, Direct 0.3 0.1 - 0.5 mg/dL [facility] Alkaline Phosphatase 95 40 - 150 U/L [facility] AST 24 5 - 34 U/L [facility] ALT 14 6 - 55 U/L [facility] Specimen Blood Performing Organization Address City/[facility]/Zipcode Phone Number [facility] [address] [place] [phone] [place] Basic Metabolic Panel (01/16/2019 2:25 PM CDT) Sodium 133 (L) 136 - 145 meq/L [facility] Potassium 4.8 3.5 - 5.1 meq/L [facility] Chloride 101 98 - 107 meq/L [facility] CO2 23 22 - 29 meq/L [facility] BUN 37 (H) 7 - 21 mg/dL [facility] Creatinine 2.17 (H) 0.57 - 1.25 mg/dL [facility] Glucose 191 (H) 70 - 105 mg/dL [facility] Calcium 9.2 8.4 - 10.2 mg/dL [facility] EGFR 23Comment: ESTIMATED GFR IS mL/min/1.73 sq m [facility] NOT ACCURATE CREATININE [facility] CLEARANCE IN PREDICTING GLOMERULAR FILTRATION RATE. ESTIMATED GFR IS NOT APPLICABLE FOR DIALYSIS PATIENTS. Specimen Blood Performing Organization Address City/[facility] Centercode Phone Number [address] [address] [place] POC-Glucose meter (11/24/2018 7:49 AM [facility])Only the most recent of6 resultswithin the time period is included. POC-Glucose Meter 243 (H)Comment: TESTED AT 70 - 110 mg/dL [facility] [address] [place] [address] [place] [address] Specimen Blood Performing Organization Address [facility] Phone Number [address] [address] [phone] [place] Calcium, Ionized (11/24/2018 4:27 AM [facility]) Calcium, Ion 1.06 (L) 1.12 - 1.27 mmol/L [facility] pH, Blood 7.41 [facility] Specimen Blood Performing Organization Address [facility] Centercoma Phone Number [address] [address] [phone] [place] Phosphorus (11/24/2018 4:27 AM [facility]) Phosphorus 3.6 2.3 - 4.7 mg/dL [facility] Specimen Blood Performing Organization Address [facility] Phone Number [address] [phone] [place] Osmolality, serum (11/24/2018 4:27 AM [facility]) Osmolality Serum 301 (H) 275 - 295 mOsm/kg [facility] Specimen Blood Performing Organization Address [facility] Phone Number [address] [phone] [place] Magnesium (11/24/2018 4:27 AM [facility]) Magnesium 2.0 1.6 - 2.6 mg/dL [facility] Specimen Blood Performing Organization Address [facility] Phone Number [address] [phone] [place] Comprehensive metabolic panel (11/24/2018 4:27 AM [facility])Only the most recent of3 resultswithin the time period is included. Protein, Total 5.5 (L) 6.0 - 8.3 gm/dL [facility] Albumin 3.2 (L) 3.5 - 5.0 g/dL [facility] Alkaline Phosphatase 75 40 - 150 U/L [facility] Total Bilirubin 0.9 0.2 - 1.2 mg/dL [facility] Sodium 132 (L) 136 - 145 meq/L [facility] Potassium 4.3 3.5 - 5.1 meq/L [facility] Chloride 101 98 - 107 meq/L [facility] CO2 25 22 - 29 meq/L [facility] BUN 45 (H) 7 - 21 mg/dL [facility] Creatinine 1.89 (H) 0.57 - 1.25 mg/dL [facility] Glucose 241 (H) 70 - 105 mg/dL [facility] Calcium 8.6 8.4 - 10.2 mg/dL [facility] AST 19 5 - 34 U/L [facility] ALT 10 6 - 55 U/L [facility] EGFR 27Comment: ESTIMATED GFR mL/min/1.73 sq m [facility] IS NOT ACCURATE [facility] CREATININE CLEARANCE IN PREDICTING GLOMERULAR FILTRATION RATE. ESTIMATED GFR IS NOT APPLICABLE FOR DIALYSIS PATIENTS. Specimen Blood Performing Organization Address City/State/Zipcode Phone Number [facility] [address] [place] [address] CENTER US renal complete (11/24/2018 3:20 AM [facility]) Narrative Performed At FINAL REPORT [facility] U/S, RENAL, COMPLETE CLINICAL INDICATION:HEMALATHA/CKD [...] MD Report Verified Date/Time:11/24/2018 03:59:04 Reading Location: [address] Transitional Reading Room Procedure Note Interface, External Ris In - 11/24/2018 4:01 AM [facility] FINAL REPORT U/S, RENAL, COMPLETE CLINICAL INDICATION: [...] Report Verified Date/Time: 11/24/2018 03:59:04 Reading Location: [facility] C0[facility] Transitional Reading Room Performing Organization Address City/State/Zipcode Phone Number [facility] Troponin I (11/23/2018 9:41 PM [facility]) Troponin I <0.01 0.00 - 0.03 ng/mL [facility] Specimen Blood Narrative Performed At Troponin I (TnI) levels must be interpreted [facility] in the context of the presenting [...] disease, and persistent tachyarrhythmia. Performing Organization Address [facility] Phone Number [address] [phone] [place] ECG 12 lead (11/23/2018 9:19 PM [facility]) Narrative Performed At Ventricular Rate 77 BPM GE MUSE Atrial Rate 77 BPM P-R Interval 172 ms QRS Duration 80 ms Q-T Interval 392 ms QTC Calculation(Bazett) 443 ms P Lowell 44 degrees R Lowell -47 degrees T [place] 50 degrees Normal sinus rhythm Left axis deviation Low voltage QRS Cannot rule out Anterior infarct , age undetermined Abnormal ECG No previous ECGs available Confirmed by MD TRAMMELL JOSEPH P ([id number]) on 11/24/2018 6:45:48 AM Procedure Note Interface, External Ris In - 11/24/2018 6:45 AM [facility] Ventricular Rate 77 BPM Atrial Rate 77 BPM P-R Interval 172 ms QRS Duration 80 ms Q-T Interval 392 ms QTC Calculation(Bazett) 443 ms P [place] 44 degrees R [place]ell -47 degrees T [place] 50 degrees Normal sinus rhythm Left axis deviation Low voltage QRS Cannot rule out Anterior infarct , age undetermined Abnormal ECG No previous ECGs available Confirmed by MD TRAMMELL JOSEPH P ([id number]) on 11/24/2018 6:45:48 AM Performing Organization Address [facility] Phone Number [facility]USE Sodium, random urine (11/23/2018 7:01 PM [facility]) Sodium Urine <20 meq/L [facility] Specimen Urine Narrative Performed At Reference Range: No Normals [facility] Performing Organization Address [facility] Cent[facility]ode Phone Number [address] [phone] [place] Protein, random urine (11/23/2018 7:01 PM [facility]) Protein, Urine 10 0 - 14 mg/dL [facility] Specimen Urine Performing Organization Address City/State/Zipcode Phone Number [facility] [address] [place] [address] CENTER US abdomen limited (11/23/2018 1:05 PM [facility]) Narrative Performed At FINAL REPORT [facility] ULTRASOUND RIGHT UPPER QUADRANT OF THE ABDOMEN [...] MD Report Verified Date/Time:11/23/2018 13:29:13 Reading Location: [address] Transitional Reading Room Procedure Note Interface, External Ris In - 11/23/2018 1:31 PM [facility] FINAL REPORT ULTRASOUND RIGHT UPPER QUADRANT OF [...] Report Verified Date/Time: 11/23/2018 13:29:13 Reading Location: [facility] C013T Transitional Reading Room Performing Organization Address City/State/Zipcode Phone Number [facility] US paracentesis (11/23/2018 12:48 PM [facility]) Narrative Performed At FINAL REPORT [facility] Paracentesis dated 11/23/2018 Procedure: Ultrasound-guided paracentesis. Preprocedure diagnosis: Ascites Postprocedure diagnosis: Ascites Conscious sedation: None. Radiologist: Giovanni Haas M.D. Bagman/Woman: None Anesthesia: 1% Xylocaine mixed with sodium bicarbonate local anesthesia. Technique: After obtaining informed consent, ultrasound-guided paracentesis was performed under usual sterile technique. Using a 5 serbian drainage catheter, puncture was made in the right lower quadrant abdomen. Approximately 16,200 cc of serous fluid was removed. Patient tolerated the procedure well without complication. Complication: None Graft/Implant: None Estimated Blood Loss: None Impression: Ultrasound-guided paracentesis. Signed: Giovanni Haas MD Report Verified Date/Time:11/23/2018 13:01:25 Reading Location: [facility] B1 C013X Ortho Consult Reading Room Procedure Note Interface, External [facility] In - 11/23/2018 1:03 PM [facility] FINAL REPORT Paracentesis dated 11/23/2018 Procedure: Ultrasound-guided paracentesis. Preprocedure diagnosis: Ascites Postprocedure diagnosis: Ascites Conscious sedation: None. Radiologist: Giovanni Haas M.D. Bagman/Woman: None Anesthesia: 1% Xylocaine mixed with sodium bicarbonate local anesthesia. Technique: After obtaining informed consent, ultrasound-guided paracentesis was performed under usual sterile technique. Using a 5 serbian drainage catheter, puncture was made in the right lower quadrant abdomen. Approximately 16,200 cc of serous fluid was removed. Patient tolerated the procedure well without complication. Complication: None Graft/Implant: None Estimated Blood Loss: None Impression: Ultrasound-guided paracentesis. Signed: Giovanni Haas MD Report Verified Date/Time: 11/23/2018 13:01:25 Reading Location: [facility] C013X Ortho Consult Reading Room Performing Organization Address City/State/Zipcode Phone Number [facility] Urinalysis w/ Microscopic (11/23/2018 10:58 AM [facility]) Color, UA Yellow [facility] Clarity, UA Clear [facility] Specific [place], UA 1.015 1.001 - 1.035 [facility] pH, UA 5.0 5.0 - 8.0 [facility] Protein, UA Negative Negative [facility] Glucose, UA Negative Negative [facility] Ketones, UA Negative Negative [facility] Bilirubin, UA Negative Negative [facility] Blood, UA Negative Negative [facility] Nitrite, UA Negative Negative [facility] Leukocytes, UA Negative Negative [facility] Urobilinogen, UA 0.2 0.2 - 1.0 mg/dL [facility] RBC, UA <1 /HPF [facility] WBC, UA 2 /HPF [facility] Bacteria, UA Occasional [facility] Squam Epithel, UA 19 /HPF [facility] Hyaline Casts, UA 5 /LPF [facility] Amorphous Crystals Occasional [facility] Specimen Source Urine, Clean Catch [facility] Specimen Urine - Urine, Clean Catch Performing Organization Address [facility]/Zipcode Phone Number [address] [address] [phone] [place] Anti-Mitochondrial Ab, reflex to titer (11/23/2018 4:53 AM [facility]) Scan Result [facility] Specimen Blood Narrative Performed At Performing Organization Address [facility] Cent[facility]ode Phone Number [place] [address] [address] [place] [address] Iron, TIBC, % sat. (without ferritin) (11/23/2018 4:53 AM [facility]) Iron 46.0 40.0 - 160.0 ug/dL [facility] TIBC 269 250 - 450 ug/dL [facility] Iron % Saturation 17 (L) 20 - 55 % [facility] Specimen Blood Performing Organization Address [facility] Phone Number [address] [address] [phone] [place] Hepatitis B Panel (11/23/2018 4:53 AM [facility]) Hep B Core Total Ab NON-REACTIVE Nonreactive [facility] Hep B S Ab <8.0 <8.0 mIU/mL [facility] hepatitis B Surface Ag NON-REACTIVE Nonreactive [facility] Specimen Blood Performing Organization Address [facility]icians [facility] Centercode Phone Number [address] [address] [phone] [place] Hepatitis A Panel (11/23/2018 4:53 AM [facility]) Hep A IgM HEPATITIS A TEST NEGATIVE Nonreactive [facility] Hep A IgG Nonreactive Nonreactive [facility] Specimen Blood Performing Organization Address City/[facility]/Zipcode Phone Number [address] [address] [place] Hepatitis C antibody (11/23/2018 4:53 AM [facility]) Hepatitis C Ab NON-REACTIVE Nonreactive [facility] Specimen Blood Performing Organization Address City/[facility]/Zipcode Phone Number [address] [address] CENTER Actin (Smooth Muscle) Antibody, IgG (11/23/2018 4:53 AM [facility]) Anti-Smooth Muscle Ab <20 See Note: U [...] Lab [facility] [address] [address] Gilles Moss MD, PhD, LINA Performing Organization Address [facility] Phone Number [place] [address] [address] [place] [address] Ohyfx-2-fuumolgsvay (11/23/2018 4:53 AM [facility]) A-1 Antitrypsin 202.70 (H) 90.00 - 200.00 mg/dL [facility] Specimen Blood Performing Organization Address City/[facility]/Zipcode Phone Number [address] [address] [phone] C[place] Ceruloplasmin (11/23/2018 4:53 AM [facility]) Ceruloplasmin 28 18 - 53 mg/dL [facility] Comment: Adults:Males: 18-36 mg/dL Females: 18-53 mg/dL Pediatrics:Males (mg/dL)Females (mg/dL) 0-30 Days 8-25 3-28 31 Days-11 Month 1515-43 1-3 [id number] 4-6 [id number] 7-9 [id number] 10-12 [id number] 13-15 [id number] 16-18 [id number] The pediatric ranges are derived from the following criteria: Sacha SJ, Juwan JM, Poornima J et al Pediatric reference ranges for Lsks-0-Ftfntpaocwocn and ceruloplasmin. Clin. Chem 1997; 43:S1999 Pediatric Reference Ranges, 2nd., [place] Sachaet al. editors. [employer], [place], [place] 1997. Specimen Blood Narrative Performed At Performing Lab [facility] *[facility] [employer] [facility], [address] [place] [phone] Noe Rosario MD, PhD Performing Organization Address City/[facility]/Zipcode Phone Number [place] [address] INCORPORATED [address] [facility] Ferritin (11/23/2018 4:53 AM [facility]) Ferritin 52 5 - 275 ng/mL [facility] Specimen Blood Performing Organization Address City/State/Zipcode Phone Number [address] [address] C[place] PT/aPTT (11/22/2018 11:31 PM [facility]) Protime 13.3 11.7 - 14.7 seconds [facility] INR 1.0 <=5.9 [facility] PTT 26.9 22.5 - 36.0 seconds [facility] Specimen Blood Narrative Performed At RECOMMENDED COUMADIN/WARFARIN INR THERAPY [facility] RANGES STANDARD DOSE: 2.0 - 3.0 Includes: PROPHYLAXIS for venous thrombosis, systemic embolization; TREATMENT for venous thrombosis and/or pulmonary embolus. HIGH RISK: Target INR is 2.5-3.5 for patients with mechanical heart valves. Performing Organization Address City/State/Zipcode Phone Number [facility] MED[facility] CENTERAmeriTech CollegeMUSC [facility] [address] [place] [address] CENTER after 02/14/2018 Insurance Payer Benefit Plan / Group Subscriber ID Type Phone Address ANISA SHELL xxxxxxxxxxx Advance Directives For more information, please contact:[facility]ixCarib[facility] Memorial HospitalFotolog V[address] [place], [place] [phone] Code Status Date Activated Date Inactivated Comments Full Code 11/22/2018 10:01 PM This code status was determined by: Patient
--- OUTSIDE RECORDS SUMMARY | 2019-02-15 18:23 | XMS REPORT ---
:1960 Author Organization [facility] Address [address] [place] [address] Dr. Melton [address] [place] [address] Care Team Providers Name Role Phone DANIEL FREIRE Unavailable Unavailable ZEB CASEY Unavailable Unavailable Problems This patient has no known problems. Allergies, Adverse Reactions, Alerts This patient has no known allergies or adverse reactions. Medications This patient has no known medications. Results Test Description Test Time Test Comments Text Results Atomic Results Result Comments ALPHA FETOPROTEIN (AFP), TUMOR MARKER 2019-01-16 15:55:00 Test Item Value Reference Range Comments ALPHA-FETOPROTEIN (BEAKER) (test urrg=1448) 3.4 ng/mL <10.0 BASIC METABOLIC [id number] 15:40:00 Test Item Value Reference Range Comments SODIUM (BEAKER) (test 133 meq/L 136-145 etks=544) POTASSIUM (BEAKER) (test 4.8 meq/L 3.5-5.1 zbhf=948) CHLORIDE (BEAKER) (test 101 meq/L 98-107 hpyk=128) CO2 (BEAKER) (test 23 meq/L 22-29 tlle=922) BLOOD UREA NITROGEN 37 mg/dL 7-21 (BEAKER) (test jfeu=006) CREATININE (BEAKER) (test 2.17 mg/dL 0.57-1.25 zcmt=349) GLUCOSE RANDOM (BEAKER) 191 mg/dL 70-105 (test pjxg=938) CALCIUM (BEAKER) (test 9.2 mg/dL 8.4-10.2 dppt=008) EGFR (BEAKER) (test 23 mL/min/1.73 sq m ESTIMATED GFR IS NOT blzz=7141) ACCURATE CREATININE CLEARANCE IN PREDICTING GLOMERULAR FILTRATION RATE. ESTIMATED GFR IS NOT APPLICABLE FOR DIALYSIS PATIENTS. HEPATIC FUNCTION [id number] 15:38:00 Test Item Value Reference Range Comments TOTAL PROTEIN (BEAKER) (test knbz=616) 6.9 gm/dL 6.0-8.3 ALBUMIN (BEAKER) (test auym=6531) 3.7 g/dL 3.5-5.0 BILIRUBIN TOTAL (BEAKER) (test ojdx=344) 0.8 mg/dL 0.2-1.2 BILIRUBIN DIRECT (BEAKER) (test njyb=741) 0.3 mg/dL 0.1-0.5 ALKALINE PHOSPHATASE (BEAKER) (test rurf=386) 95 U/L 40-150 AST (SGOT) (BEAKER) (test benq=542) 24 U/L 5-34 ALT (SGPT) (BEAKER) (test gtrk=566) 14 U/L 6-55 PROTHROMBIN [id number] 15:29:00 Test Item Value Reference Range Comments PROTIME (BEAKER) (test uylt=462) 12.8 seconds 11.7-14.7 INR (BEAKER) (test iagt=786) 1.0 <=5.9 RECOMMENDED COUMADIN/WARFARIN INR THERAPY RANGESSTANDARD DOSE: 2.0 - 3.0 Includes: PROPHYLAXIS forvenous thrombosis, systemic embolization; TREATMENT for venous thrombosis and/or pulmonary embolus.HIGH RISK: Target INR is 2.5-3.5 for patients with mechanical heart valves.CBC W/PLT COUNT & AUTO [id number] 15:17:00 Test Item Value Reference Range Comments WHITE BLOOD CELL COUNT (BEAKER) (test wzcw=548) 7.8 K/ L 3.5-10.5 RED BLOOD CELL COUNT (BEAKER) (test rtjx=530) 4.49 M/ L 3.93-5.22 HEMOGLOBIN (BEAKER) (test sibz=112) 12.4 GM/DL 11.2-15.7 HEMATOCRIT (BEAKER) (test ulqy=222) 39.1 % 34.1-44.9 MEAN CORPUSCULAR VOLUME (BEAKER) (test pgvl=855) 87.1 fL 79.4-94.8 MEAN CORPUSCULAR HEMOGLOBIN (BEAKER) (test 27.6 pg 25.6-32.2 umfu=647) MEAN CORPUSCULAR HEMOGLOBIN CONC (BEAKER) (test 31.7 GM/DL 32.2-35.5 ueis=041) RED CELL DISTRIBUTION WIDTH (BEAKER) (test 14.0 % 11.7-14.4 kpay=378) PLATELET COUNT (BEAKER) (test xoxc=297) 196 K/CU MM 150-450 MEAN PLATELET VOLUME (BEAKER) (test qljk=281) 9.9 fL 9.4-12.3 NUCLEATED RED BLOOD CELLS (BEAKER) (test 0 /100 WBC 0-0 njkf=197) NEUTROPHILS RELATIVE PERCENT (BEAKER) (test 72 % dhxe=055) LYMPHOCYTES RELATIVE PERCENT (BEAKER) (test 18 % kfkp=618) MONOCYTES RELATIVE PERCENT (BEAKER) (test 6 % pjuu=870) EOSINOPHILS RELATIVE PERCENT (BEAKER) (test 4 % zhky=056) BASOPHILS RELATIVE PERCENT (BEAKER) (test 1 % eufk=912) NEUTROPHILS ABSOLUTE COUNT (BEAKER) (test 5.62 K/ L 1.56-6.13 jjbx=023) LYMPHOCYTES ABSOLUTE COUNT (BEAKER) (test 1.37 K/ L 1.18-3.74 gyhz=379) MONOCYTES ABSOLUTE COUNT (BEAKER) (test 0.43 K/ L 0.24-0.36 lrsz=795) EOSINOPHILS ABSOLUTE COUNT (BEAKER) (test 0.28 K/ L 0.04-0.36 qejz=273) BASOPHILS ABSOLUTE COUNT (BEAKER) (test 0.07 K/ L 0.01-0.08 sius=800) IMMATURE GRANULOCYTES-RELATIVE PERCENT (BEAKER) 0 % 0-1 (test eshu=8179) ANTI-MITOCHONDRIAL AB, REFLEX TO [id number] 08:36:00 Test Item Value Reference Range Comments SCAN RESULT (test aqyz=[id number]) OSMOLALITY, [id number] 10:30:00 Test Item Value Reference Range Comments OSMOLALITY, SERUM (BEAKER) (test ahpm=926) 301 mOsm/kg 275-295 POCT-GLUCOSE [id number] 08:26:00 Test Item Value Reference Range Comments POC-GLUCOSE METER (BEAKER) 243 mg/dL 70-110 TESTED AT [address] (test bsvx=9122) [facility] [address] COMPREHENSIVE METABOLIC [id number] 08:05:00 Test Item Value Reference Range Comments TOTAL PROTEIN (BEAKER) 5.5 gm/dL 6.0-8.3 (test zgpw=931) ALBUMIN (BEAKER) (test 3.2 g/dL 3.5-5.0 awjs=6850) ALKALINE PHOSPHATASE 75 U/L 40-150 (BEAKER) (test kpdu=154) BILIRUBIN TOTAL (BEAKER) 0.9 mg/dL 0.2-1.2 (test utwa=181) SODIUM (BEAKER) (test 132 meq/L 136-145 riql=728) POTASSIUM (BEAKER) (test 4.3 meq/L 3.5-5.1 qfrq=082) CHLORIDE (BEAKER) (test 101 meq/L 98-107 rbgq=099) CO2 (BEAKER) (test 25 meq/L 22-29 pftc=125) BLOOD UREA NITROGEN 45 mg/dL 7-21 (BEAKER) (test vhpm=925) CREATININE (BEAKER) (test 1.89 mg/dL 0.57-1.25 qtyb=505) GLUCOSE RANDOM (BEAKER) 241 mg/dL 70-105 (test eflq=161) CALCIUM (BEAKER) (test 8.6 mg/dL 8.4-10.2 fdlv=169) AST (SGOT) (BEAKER) (test 19 U/L 5-34 mkxf=615) ALT (SGPT) (BEAKER) (test 10 U/L 6-55 ibds=961) EGFR (BEAKER) (test 27 mL/min/1.73 sq m ESTIMATED GFR IS NOT apej=5908) ACCURATE CREATININE CLEARANCE IN PREDICTING GLOMERULAR FILTRATION RATE. ESTIMATED GFR IS NOT APPLICABLE FOR DIALYSIS PATIENTS. [id number] 08:02:00 Test Item Value Reference Range Comments PHOSPHORUS (BEAKER) (test dsyr=831) 3.6 mg/dL 2.3-4.7 [id number] 08:02:00 Test Item Value Reference Range Comments MAGNESIUM (BEAKER) (test ubdw=287) 2.0 mg/dL 1.6-2.6 CBC W/PLT COUNT & AUTO [id number] 05:40:00 Test Item Value Reference Range Comments WHITE BLOOD CELL COUNT (BEAKER) (test jnbi=534) 5.7 K/ L 3.5-10.5 RED BLOOD CELL COUNT (BEAKER) (test oviz=455) 3.76 M/ L 3.93-5.22 HEMOGLOBIN (BEAKER) (test gauc=914) 10.6 GM/DL 11.2-15.7 HEMATOCRIT (BEAKER) (test bcto=028) 32.9 % 34.1-44.9 MEAN CORPUSCULAR VOLUME (BEAKER) (test nmqq=742) 87.5 fL 79.4-94.8 MEAN CORPUSCULAR HEMOGLOBIN (BEAKER) (test 28.2 pg 25.6-32.2 dhfo=437) MEAN CORPUSCULAR HEMOGLOBIN CONC (BEAKER) (test 32.2 GM/DL 32.2-35.5 rhpl=545) RED CELL DISTRIBUTION WIDTH (BEAKER) (test 14.2 % 11.7-14.4 iepx=366) PLATELET COUNT (BEAKER) (test edew=854) 142 K/CU MM 150-450 MEAN PLATELET VOLUME (BEAKER) (test ayge=681) 9.8 fL 9.4-12.3 NUCLEATED RED BLOOD CELLS (BEAKER) (test 0 /100 WBC 0-0 kzpu=099) NEUTROPHILS RELATIVE PERCENT (BEAKER) (test 70 % wjzi=463) LYMPHOCYTES RELATIVE PERCENT (BEAKER) (test 19 % pqww=178) MONOCYTES RELATIVE PERCENT (BEAKER) (test 7 % ylzf=510) EOSINOPHILS RELATIVE PERCENT (BEAKER) (test 3 % ujyu=531) BASOPHILS RELATIVE PERCENT (BEAKER) (test 1 % jdxv=280) NEUTROPHILS ABSOLUTE COUNT (BEAKER) (test 3.99 K/ L 1.56-6.13 hzdr=229) LYMPHOCYTES ABSOLUTE COUNT (BEAKER) (test 1.05 K/ L 1.18-3.74 peka=315) MONOCYTES ABSOLUTE COUNT (BEAKER) (test 0.40 K/ L 0.24-0.36 jixd=271) EOSINOPHILS ABSOLUTE COUNT (BEAKER) (test 0.16 K/ L 0.04-0.36 dsws=518) BASOPHILS ABSOLUTE COUNT (BEAKER) (test 0.04 K/ L 0.01-0.08 oxfm=688) IMMATURE GRANULOCYTES-RELATIVE PERCENT (BEAKER) 0 % 0-1 (test soot=8440) CALCIUM, [id number] 05:17:00 Test Item Value Reference Range Comments CALCIUM IONIZED (BEAKER) (test dury=582) 1.06 mmol/L 1.12-1.27 PH, BLOOD (BEAKER) (test ovls=0582) 7.41 U/S, RENAL, [id number] 03:59:00Reason for exam:->HEMALATHA/CKDShould this be performed at [...] Wilson Verified Date/Time: 11/24/2018 03:59:04 Reading Location: [address] Transitional Reading Room TROPONIN [id number] 23:19:00 Test Item Value Reference Range Comments TROPONIN I (DAKOTAH) (test lzma=576) < ng/mL 0.00-0.03 Troponin I (TnI) levels [...] acidosis, acute neurological disease, and persistent tachyarrhythmia.POCT-GLUCOSE [id number] 21:12:00 Test Item Value Reference Range Comments POC-GLUCOSE METER (DAKOTAH) 277 mg/dL 70-[address] [facility] [address] [facility] (test ykjo=3932) [facility] [address] PROTEIN, RANDOM [id number] 20:11:00 Test Item Value Reference Range Comments PROTEIN, URINE (BEAKER) (test dypb=3587) 10 mg/dL 0-14 SODIUM, RANDOM [id number] 20:05:00 Test Item Value Reference Range Comments SODIUM URINE (BEAKER) (test boka=078) < meq/L Reference Range: No NormalsPOCT-GLUCOSE [id number] 17:28:00 Test Item Value Reference Range Comments POC-GLUCOSE METER (BEAKER) 291 mg/dL 70-110 TESTED AT [address] (test agwh=2083) [place] [id number] POCT-GLUCOSE [id number] 14:02:00 Test Item Value Reference Range Comments POC-GLUCOSE METER (BEAKER) 148 mg/dL 70-110 TESTED AT [address] (test gqih=7770) [place] [id number] URINALYSIS W/ [id number] 13:32:00 Test Item Value Reference Range Comments COLOR (BEAKER) (test ksmk=139) Yellow CLARITY (BEAKER) (test ttny=512) Clear SPECIFIC GRAVITY UA (BEAKER) (test 1.015 1.001-1.035 ifmf=909) PH UA (BEAKER) (test tesv=899) 5.0 5.0-8.0 PROTEIN UA (BEAKER) (test ulcy=826) Negative Negative GLUCOSE UA (BEAKER) (test cudb=632) Negative Negative KETONES UA (BEAKER) (test wvsd=925) Negative Negative BILIRUBIN UA (BEAKER) (test wfuq=436) Negative Negative BLOOD UA (BEAKER) (test oyuu=842) Negative Negative NITRITE UA (BEAKER) (test qsgt=150) Negative Negative LEUKOCYTE ESTERASE UA (BEAKER) (test Negative Negative eylu=005) UROBILINOGEN UA (BEAKER) (test hiel=609) 0.2 mg/dL 0.2-1.0 RBC UA (BEAKER) (test xvbb=582) < /HPF WBC UA (BEAKER) (test yzfi=386) 2 /HPF BACTERIA (BEAKER) (test fgnt=074) Occasional SQUAMOUS EPITHELIAL (BEAKER) (test 19 /HPF awgt=644) HYALINE CASTS (BEAKER) (test llur=412) 5 /LPF AMORPHOUS CRYSTALS (BEAKER) (test Occasional pfgy=1007) SOURCE(BEAKER) (test cnnf=1547) Urine, Clean Catch U/S, ABDOMINAL, [id number] 13:29:00Abdomen limited area? Add comment if clarification [...] structures of the abdomen. Signed: Dilip Valles MDReport Verified Date/Time: 11/23/2018 13:29:13 Reading Location: [address] Transitional Reading Room U/S, [id number] 13:01:00Reason for exam:->Therapeutic paracentesisFINAL REPORT Paracentesis dated 11/23/2018 Procedure: Ultrasound-guided paracentesis. Preprocedure diagnosis: Ascites Postprocedure diagnosis: Ascites Conscious sedation: None. Radiologist: Giovanni Haas M.D. [facility] Director: None Anesthesia: 1% Xylocaine mixed with sodium bicarbonate local anesthesia. Technique: After obtaining informed consent, ultrasound-guided paracentesis was performed under usual sterile technique. Using a 5 moldovan drainage catheter , puncture was made in the right lower quadrant abdomen. Approximately 16,200 cc of serous fluid was removed. Patient tolerated the procedure well without complication. Complication: None Graft/Implant: None Estimated Blood Loss: None Impression: Ultrasound-guided paracentesis. Signed: Giovanni Haas Verified Date/Time: 11/23/2018 13:01:25 Reading Location: [facility] C013X [facility] Consult Reading Room Electronically signedby: GIOVANNI HAAS M.D. on 2018 01:01 PMCBC W/PLT COUNT & AUTO [id number] 08:55:00 Test Item Value Reference Range Comments WHITE BLOOD CELL COUNT (BEAKER) (test gzec=068) 5.7 K/ L 3.5-10.5 RED BLOOD CELL COUNT (BEAKER) (test rpsi=466) 3.72 M/ L 3.93-5.22 HEMOGLOBIN (BEAKER) (test nmeg=647) 10.5 GM/DL 11.2-15.7 HEMATOCRIT (BEAKER) (test avll=228) 32.5 % 34.1-44.9 MEAN CORPUSCULAR VOLUME (BEAKER) (test jqtz=247) 87.4 fL 79.4-94.8 MEAN CORPUSCULAR HEMOGLOBIN (BEAKER) (test 28.2 pg 25.6-32.2 npuv=058) MEAN CORPUSCULAR HEMOGLOBIN CONC (BEAKER) (test 32.3 GM/DL 32.2-35.5 ruwz=722) RED CELL DISTRIBUTION WIDTH (BEAKER) (test 14.5 % 11.7-14.4 tzui=483) PLATELET COUNT (BEAKER) (test nvqi=527) 148 K/CU MM 150-450 MEAN PLATELET VOLUME (BEAKER) (test nzul=370) 9.4 fL 9.4-12.3 NUCLEATED RED BLOOD CELLS (BEAKER) (test 0 /100 WBC 0-0 ulzq=748) NEUTROPHILS RELATIVE PERCENT (BEAKER) (test 63 % zwmi=381) LYMPHOCYTES RELATIVE PERCENT (BEAKER) (test 23 % wfej=084) MONOCYTES RELATIVE PERCENT (BEAKER) (test 8 % pngm=963) EOSINOPHILS RELATIVE PERCENT (BEAKER) (test 5 % beho=949) BASOPHILS RELATIVE PERCENT (BEAKER) (test 1 % vwju=114) NEUTROPHILS ABSOLUTE COUNT (BEAKER) (test 3.61 K/ L 1.56-6.13 rzua=284) LYMPHOCYTES ABSOLUTE COUNT (BEAKER) (test 1.29 K/ L 1.18-3.74 augk=083) MONOCYTES ABSOLUTE COUNT (BEAKER) (test 0.47 K/ L 0.24-0.36 xcvv=794) EOSINOPHILS ABSOLUTE COUNT (BEAKER) (test 0.28 K/ L 0.04-0.36 psmd=150) BASOPHILS ABSOLUTE COUNT (BEAKER) (test 0.05 K/ L 0.01-0.08 kxuq=211) IMMATURE GRANULOCYTES-RELATIVE PERCENT (BEAKER) 0 % 0-1 (test ours=1068) POCT-GLUCOSE [id number] 07:43:00 Test Item Value Reference Range Comments POC-GLUCOSE METER (BEAKER) 196 mg/dL 70-[address] [facility] [address] [facility] (test cohl=1438) [facility] [address] [id number] 06:53:00 Test Item Value Reference Range Comments FERRITIN (BEAKER) (test qobi=469) 52 ng/mL 5-275 HEPATITIS B [id number] 06:21:00 Test Item Value Reference Range Comments HEPATITIS B CORE TOTAL ANTIBODY (BEAKER) (test Nonreactive Nonreactive lqnb=501) HEPATITIS B SURFACE ANTIBODY (BEAKER) (test < mIU/mL <8.0 ddey=943) HEPATITIS B SURFACE ANTIGEN (2) (BEAKER) (test Nonreactive Nonreactive tfos=1390) HEPATITIS C [id number] 06:20:00 Test Item Value Reference Range Comments HEPATITIS C ANTIBODY (BEAKER) (test tjlb=777) Nonreactive Nonreactive HEPATITIS A [id number] 06:20:00 Test Item Value Reference Range Comments HEPATITIS A IGM ANTIBODY (BEAKER) (test Nonreactive Nonreactive lbxt=037) HEPATITIS A IGG ANTIBODY (BEAKER) (test Nonreactive Nonreactive qubx=4327) ALPHA FETOPROTEIN (AFP), TUMOR [id number] 06:14:00 Test Item Value Reference Range Comments ALPHA-FETOPROTEIN (BEAKER) (test hqlf=7825) 2.1 ng/mL <10.0 COMPREHENSIVE METABOLIC [id number] 06:01:00 Test Item Value Reference Range Comments TOTAL PROTEIN (BEAKER) 5.9 gm/dL 6.0-8.3 (test jqkq=526) ALBUMIN (BEAKER) (test 2.9 g/dL 3.5-5.0 vvfx=5381) ALKALINE PHOSPHATASE 96 U/L 40-150 (BEAKER) (test dqou=763) BILIRUBIN TOTAL (BEAKER) 0.5 mg/dL 0.2-1.2 (test hvxy=780) SODIUM (BEAKER) (test 132 meq/L 136-145 mixs=214) POTASSIUM (BEAKER) (test 4.3 meq/L 3.5-5.1 yrxy=036) CHLORIDE (BEAKER) (test 100 meq/L 98-107 ybjj=529) CO2 (BEAKER) (test 26 meq/L 22-29 tjcn=501) BLOOD UREA NITROGEN 50 mg/dL 7-21 (BEAKER) (test uvja=959) CREATININE (BEAKER) (test 2.27 mg/dL 0.57-1.25 wzqk=158) GLUCOSE RANDOM (BEAKER) 219 mg/dL 70-105 (test hphc=286) CALCIUM (BEAKER) (test 8.8 mg/dL 8.4-10.2 nngw=426) AST (SGOT) (BEAKER) (test 22 U/L 5-34 rslv=539) ALT (SGPT) (BEAKER) (test 15 U/L 6-55 fjtc=137) EGFR (BEAKER) (test 22 mL/min/1.73 sq m ESTIMATED GFR IS NOT hvek=3508) ACCURATE CREATININE CLEARANCE IN PREDICTING GLOMERULAR FILTRATION RATE. ESTIMATED GFR IS NOT APPLICABLE FOR DIALYSIS PATIENTS. IRON, TIBC, % SAT. (WITHOUT FERRITIN)2018-11-23 05:55:00 Test Item Value Reference Range Comments IRON (BEAKER) (test djvw=493) 46.0 ug/dL 40.0-160.0 TOTAL IRON BINDING CAPACITY (BEAKER) (test 269 ug/dL 250-450 yssl=855) IRON % SATURATION (2) (BEAKER) (test ydxt=4726) 17 % 20-55 [id number] 05:54:00 Test Item Value Reference Range Comments ALPHA-1 ANTITRYPSIN (BEAKER) (test uiff=690) 202.70 mg/dL 90.00-200.00 COMPREHENSIVE METABOLIC [id number] 00:16:00 Test Item Value Reference Range Comments TOTAL PROTEIN (BEAKER) 6.8 gm/dL 6.0-8.3 (test vcce=723) ALBUMIN (BEAKER) (test 3.3 g/dL 3.5-5.0 ltdj=6389) ALKALINE PHOSPHATASE 114 U/L 40-150 (BEAKER) (test ityi=275) BILIRUBIN TOTAL (BEAKER) 0.6 mg/dL 0.2-1.2 (test hckh=732) SODIUM (BEAKER) (test 130 meq/L 136-145 gdkt=295) POTASSIUM (BEAKER) (test 4.4 meq/L 3.5-5.1 cxzd=253) CHLORIDE (BEAKER) (test 99 meq/L 98-107 rwpi=851) CO2 (BEAKER) (test 22 meq/L 22-29 jzsd=787) BLOOD UREA NITROGEN 46 mg/dL 7-21 (BEAKER) (test kchs=633) CREATININE (BEAKER) (test 2.40 mg/dL 0.57-1.25 spfl=100) GLUCOSE RANDOM (BEAKER) 153 mg/dL 70-105 (test hxom=151) CALCIUM (BEAKER) (test 9.1 mg/dL 8.4-10.2 tecg=248) AST (SGOT) (BEAKER) (test 25 U/L 5-34 hols=588) ALT (SGPT) (BEAKER) (test 17 U/L 6-55 ttsm=230) EGFR (BEAKER) (test 21 mL/min/1.73 sq m ESTIMATED GFR IS NOT awnb=4781) ACCURATE CREATININE CLEARANCE IN PREDICTING GLOMERULAR FILTRATION RATE. ESTIMATED GFR IS NOT APPLICABLE FOR DIALYSIS PATIENTS. [id number] 23:52:00 Test Item Value Reference Range Comments PROTIME (BEAKER) (test mkjd=059) 13.3 seconds 11.7-14.7 INR (BEAKER) (test aoqa=477) 1.0 <=5.9 PARTIAL THROMBOPLASTIN TIME (BEAKER) (test 26.9 seconds 22.5-36.0 clrf=457) RECOMMENDED COUMADIN/WARFARIN INR THERAPY RANGESSTANDARD DOSE: 2.0 - 3.0 Includes: PROPHYLAXIS forvenous thrombosis, systemic embolization; TREATMENT for venous thrombosis and/or pulmonary embolus.HIGH RISK: Target INR is 2.5-3.5 for patients with mechanical heart valves.POCT-GLUCOSE [id number] 21:25:00 Test Item Value Reference Range Comments POC-GLUCOSE METER (DAKOTAH) 178 mg/dL 70-[address] [facility] [address] (test urpn=0413) [facility] [id number]
[2019-02-15 20:15] LABS: Absolute Lymphocytes (CBC) 1.2 K/uL (0.7-4.9); Absolute Monocytes 0.4 K/uL (0.1-1.3); Absolute Neutrophil 4.4 K/uL (1.8-8.0); Basophils % 1.1 % (0-1.3); Eosinophils % 3.4 % (0-4.4); Hematocrit 34.8 % (36.0-45.0); MPV 7.8 fL (7.6-11.3); RBC Red Blood Cell Count 4.14 M/uL (3.86-4.86)
[2019-02-15 20:18] LABS: Protime INR 0.96
[2019-02-15 20:26] LABS: Bilirubin Direct 0.2 mg/dL (0-0.2); Bilirubin Total 0.8 mg/dL (0.2-1.0); Potassium 4.8 mmol/L (3.5-5.1)
[2019-02-15] MEDS ORDERED: MEPERIDINE HCL 25 MG/0.5 ML ONE (20:31)
--- NOTE | 2019-02-15 21:18 | RAD REPORT ---
EXAM DESCRIPTION: RAD - Chest Single View - 02/15/2019 8:55 pm CLINICAL HISTORY: Abdominal pain, back pain COMPARISON: November 22 TECHNIQUE: AP portable chest image was obtained 1 hours . FINDINGS: Exam is extremely limited. There is very shallow lung volume. Right hemidiaphragm elevatio n is present. Substantial amount of overlying soft tissue further limits the examination. No vascular engorgement. Visualized portions of the lung han are clear. Heart and vasculature are normal. No measurable pleural effusion and no pneumothorax. No acute bony abnormality seen. No acute aortic find ings suspected. IMPRESSION: Very limited chest examination shows no acute cardiopulmonary finding.
--- NOTE | 2019-02-15 21:59 | ER ---
Nurse's Notes [facility] Name: Dee Maciel Age: 59 yrs Sex: Female : 1960 Arrival Date: 02/15/2019 Time: 18:16 Bed 18 Private MD: Art Pollock E Diagnosis: Ascites;Generalized abdominal pain Presentation: 02/15 18:30 Presenting complaint: Patient states: abd pain, back pain, and SOB that began last aa5 night. Pt also c/o nausea, denies vomiting. Pt reports last paracentesis was 02/11/19. Transition of care: patient was not received from another setting of care. Onset of symptoms was February 2019. Care prior to arrival: None. 18:30 Method Of Arrival: Ambulatory aa5 18:30 Acuity: ASAF 3 aa5 18:30 Risk Assessment: Do you want to hurt yourself or someone else? Patient reports no aa5 desire to harm self or others. Initial Sepsis Screen: Does the patient meet any 2 criteria? No. Patient's initial sepsis screen is negative. Does the patient have a suspected source of infection? No. Patient's initial sepsis screen is negative. Historical: - Allergies: 18:31 No Known Allergies; aa5 - PMHx: 18:31 Diabetes - NIDDM; Hypothyroidism; [place] liver; aa5 - PSHx: 18:31 paracentesis; aa5 - Immunization history:: Adult Immunizations up to date. - Social history:: Smoking status: Patient/guardian denies using tobacco. - Family history:: not pertinent. - Ebola Screening: : Patient negative for fever greater than or equal to 101.5 degrees Fahrenheit, and additional compatible Ebola Virus Disease symptoms Patient denies exposure to infectious person Patient denies travel to an Ebola-affected area in the 21 days before illness onset No symptoms or risks identified at this time. - Hospitalizations: : No recent hospitalization is reported. Screenin:41 Abuse screen: Denies threats or abuse. Denies injuries from another. Nutritional ed1 screening: No deficits noted. Tuberculosis screening: No symptoms or risk factors identified. Fall Risk None identified. Assessment: 19:41 General: Appears uncomfortable, Behavior is calm, cooperative. Pain: Complains of pain ed1 in back and abdomen Pain currently is 8 out of 10 on a pain scale. Quality of pain is described as aching, Pain began 1 day ago. Is continuous. Neuro: Level of Consciousness is awake, alert, obeys commands, Oriented to person, place, time, situation. Cardiovascular: Denies chest pain, Heart tones S1 S2 present Rhythm is regular. Respiratory: Reports shortness of breath at rest Airway is patent Respiratory effort is even, unlabored, Respiratory pattern is regular, symmetrical, Breath sounds are clear bilaterally. GI: Abdomen is distended, noted to have ascites, Bowel sounds present X 4 quads. Reports nausea, Patient currently denies diarrhea, vomiting. : No signs and/or symptoms were reported regarding the genitourinary system. EENT: No signs and/or symptoms were reported regarding the EENT system. Derm: Skin is intact, is thin, Skin is dry, Skin is normal, Skin temperature is warm. Musculoskeletal: Circulation, motion, and sensation intact. Range of motion: intact in all extremities, Reports pain in low back area. 20:44 Reassessment: Patient appears in no apparent distress at this time. No changes from ed1 previously documented assessment. Patient and/or family updated on plan of care and expected duration. Pain level reassessed. Patient is alert, oriented x 3, equal unlabored respirations, skin warm/dry/pink. Patient states symptoms have not improved. 21:56 Reassessment: Patient appears in no apparent distress at this time. Patient and/or ed1 family updated on plan of care and expected duration. Pain level reassessed. Patient is alert, oriented x 3, equal unlabored respirations, skin warm/dry/pink. Patient states feeling better. Patient states symptoms have improved. 22:32 Reassessment: Patient appears in no apparent distress at this time. Patient and/or ed1 family updated on plan of care and expected duration. Pain level reassessed. Patient is alert, oriented x 3, equal unlabored respirations, skin warm/dry/pink. Patient states feeling better. Patient states symptoms have improved. Vital Signs: 18:32 BP 118 / 81; Pulse 81; Resp 18 S; Temp 97.9(O); Pulse Ox 99% on R/A; Pain 8/10; aa5 20:44 BP 140 / 92; Pulse 79; Resp 20; Pulse Ox 98% on R/A; Pain 8/10; ed1 21:56 BP 126 / 72; Pulse 72; Resp 18; Pulse Ox 98% on R/A; Pain 4/10; ed1 22:32 BP 137 / 81; Pulse 79; Resp 15; Temp 97.1(O); Pulse Ox 97% on R/A; Pain 4/10; ed1 ED Course: 18:16 Patient arrived in ED. rg4 18:16 Art Pollock MD is Private Physician. rg4 18:30 Arm band placed on. aa5 18:32 Triage completed. aa5 19:27 Minerva Babcock, ALEXI is Primary Nurse. ed1 19:30 Mingo Valentine MD is Attending Physician. rn 19:41 Patient has correct armband on for positive identification. Placed in gown. Bed in low ed1 position. Call light in reach. Side rails up X2. Adult w/ patient. environment friendly landscape designer on. Pulse ox on. NIBP on. Warm blanket given. 19:45 Inserted saline lock: 20 gauge in right antecubital area, using aseptic technique. mt Blood collected. 20:42 XRAY Chest (1 view) In Process Unspecified. EDMS 22:53 No provider procedures requiring assistance completed. Patient transferred, IV remains ed1 in place. intact, No redness/swelling at site. Administered Medications: 20:25 Drug: Demerol 25 mg Route: IVP; Site: right antecubital; ed1 20:45 Follow up: Response: No adverse reaction; Pain is decreased ed1 Outcome: 21:59 ER care complete, transfer ordered by . rn 22:53 Transferred by ground EMS EMS. to [facility], Transfer form ed1 completed. Note: Report called to ALEXI Carmona 22:53 Condition: stable 22:53 Discharge instructions given to patient, Instructed on the need for transfer, Demonstrated understanding of instructions. 22:54 Patient left the ED. ed1 Signatures: Dispatcher [employer] EDMS Mingo Valentine MD MD rn Calderon, Audri RN ALEXI aa5 Minerva Babcock, ALEXI TRUONG ed1 Shaylee Moody rg4 Alma Rosa Chahal id Corrections: (The following items were deleted from the chart) 18:32 18:30 Presenting complaint: Patient states: abd pain, back pain, and SOB that began aa5 last night. Pt also c/o nausea, denies vomiting. aa5
--- NOTE | 2019-02-15 21:59 | EDPHYS ---
Physician Documentation [facility] Name: Dee Maciel Age: 59 yrs Sex: Female : 1960 Arrival Date: 02/15/2019 Time: 18:16 Bed 18 Private MD: Art Pollock E ED Physician Mingo Valentine HPI: 02/15 20:07 This 59 yrs old Female presents to ER via Ambulatory with complaints of rn Breathing Difficulty, abd pain. 20:08 The patient presents with abdominal pain abdominal distention. Onset: The rn symptoms/episode began/occurred at an unknown time. The symptoms do not radiate. Associated signs and symptoms: Pertinent positives: shortness of breath, Pertinent negatives: nausea and vomiting, fever, hematuria. The symptoms are described as achy. Modifying factors: The symptoms are alleviated by nothing, the symptoms are aggravated by touching the area. Severity of pain: At its worst the pain was moderate in the emergency department the pain is unchanged. The patient has experienced similar episodes in the past. Reports feels like needs another paracentesis, states last tap was Saturday, her belly is enlarging again, is tight, and causing her sob. Reports discomfort is identical to previous times when needs fluid removed. No fever. no trauma. + chronic diarrhea 2/2 lactulose. . Historical: - Allergies: 18:31 No Known Allergies; aa5 - PMHx: 18:31 Diabetes - NIDDM; Hypothyroidism; [place] liver; aa5 - PSHx: 18:31 paracentesis; aa5 - Immunization history:: Adult Immunizations up to date. - Social history:: Smoking status: Patient/guardian denies using tobacco. - Family history:: not pertinent. - Ebola Screening: : Patient negative for fever greater than or equal to 101.5 degrees Fahrenheit, and additional compatible Ebola Virus Disease symptoms Patient denies exposure to infectious person Patient denies travel to an Ebola-affected area in the 21 days before illness onset No symptoms or risks identified at this time. - Hospitalizations: : No recent hospitalization is reported. ROS: 20:08 Constitutional: Negative for fever, chills, and weight loss, Eyes: Negative for injury, rn pain, redness, and discharge, Cardiovascular: Negative for chest pain, palpitations Respiratory: Negative for cough, wheezing, and pleuritic chest pain, Abdomen/GI: + abd distension and pain MS/Extremity: Negative for injury and deformity, Skin: Negative for injury, rash, and discoloration, Neuro: Negative for headache, weakness, numbness, tingling, and seizure. Exam: 20:08 Constitutional: This is a well developed, well nourished patient who is awake, alert, rn laying in bed with hands over abdomen Head/Face: Normocephalic, atraumatic. Eyes: Periorbital areas with no swelling, redness, or edema. ENT: MMM Cardiovascular: Regular rate and rhythm. No pulse deficits. Respiratory: Mild tachypnea with diminished at bases. Abdomen/GI: soft, mild diffuse tenderness, + distension with fluid wave, no peritoneal signs or rebound. Skin: Warm, dry, and no evidence of cellulitis. MS/ Extremity: Pulses equal, no cyanosis. Neurovascular intact. Full, normal range of motion. Equal circumference. Neuro: Awake and alert, GCS 15, oriented to person, place, time, and situation. Cranial nerves II-XII grossly intact. Motor strength 5/5 in all extremities. Sensory grossly intact. Vital Signs: 18:32 BP 118 / 81; Pulse 81; Resp 18 S; Temp 97.9(O); Pulse Ox 99% on R/A; Pain 8/10; aa5 20:44 BP 140 / 92; Pulse 79; Resp 20; Pulse Ox 98% on R/A; Pain 8/10; ed1 21:56 BP 126 / 72; Pulse 72; Resp 18; Pulse Ox 98% on R/A; Pain 4/10; ed1 22:32 BP 137 / 81; Pulse 79; Resp 15; Temp 97.1(O); Pulse Ox 97% on R/A; Pain 4/10; ed1 MDM: 19:30 Patient medically screened. rn 21:57 Differential diagnosis: ascites, distension. Data reviewed: vital signs, nurses notes, healthcare administration internship test result(s), radiologic studies, plain films, and as a result, I will admit patient. Counseling: I had a detailed discussion with the patient and/or guardian regarding: the historical points, exam findings, and any diagnostic results supporting the discharge/admit diagnosis, lab results, radiology results, the need to transfer to another facility, [facility] does not immediately have the required specialist. Response to treatment: the patient's symptoms have mildly improved after treatment. ED course: Pt uncomfortable, does not feel like she can wait until tomorrow for paracentesis, unable to perform here, she requests transfer to [facility] for her liver doctor. . 02/15 19:46 Order name: CBC with Diff; Complete Time: 20:49 rn 02/15 19:46 Order name: Basic Metabolic Panel; Complete Time: 20:49 rn 02/15 19:46 Order name: Protime (+inr); Complete Time: 20:49 rn 02/15 19:46 Order name: Ptt, Activated; Complete Time: 20:49 rn 02/15 19:46 Order name: LFT's; Complete Time: 20:49 02/15 19:46 Order name: IV Start; Complete Time: 19:47 rn 02/15 19:46 Order name: Lipase; Complete Time: 20:49 02/15 20:07 Order name: XRAY Chest (1 view); Complete Time: 21:32 rn Administered Medications: 20:25 Drug: Demerol 25 mg Route: IVP; Site: right antecubital; ed1 20:45 Follow up: Response: No adverse reaction; Pain is decreased ed1 Disposition: 02/15/19 21:59 Transfer ordered to [facility]. Diagnosis are Ascites, Generalized abdominal pain. - Reason for transfer: Higher level of care. - Accepting physician is Dr. Pugh. - Condition is Stable. - Problem is an ongoing problem. - Symptoms have improved. Signatures: Dispatcher [employer] EDMS Mingo Valentine MD MD rn Calderon, Audri, RN RN aa5 Minerva Babcock RN RN ed1 Corrections: (The following items were deleted from the chart) 22:17 21:59 02/15/2019 21:59 Transfer ordered to [facility]. Diagnosis is rn Ascites; Generalized abdominal pain. Reason for transfer: Higher level of care. Accepting physician is . Condition is Stable. Problem is an ongoing problem. Symptoms have improved. rn 22:54 22:17 02/15/2019 21:59 Transfer ordered to [facility]. Diagnosis is ed1 Ascites; Generalized abdominal pain. Reason for transfer: Higher level of care. Accepting physician is Dr. Changela. Condition is Stable. Problem is an ongoing problem. Symptoms have improved. rn
== END 2019-02-15 22:54 | disposition short-term general hospital (02) ==
LOC: ER 18:14
DX: R18.8 Other ascites (principal); K75.81 Nonalcoholic steatohepatitis (NASH)
CPT/HCPCS: 36415; 71045; 80048; 80076; 83690; 85025; 85610; 85730; 96374; 99285; J2175

== ENCOUNTER 2019-04-06 14:59 | Emergency (ER) | payer OTHER ==
--- OUTSIDE RECORDS SUMMARY | 2019-04-06 15:12 | XMS REPORT | Clinical Summary ---
:1960 Author Organization Formerly [facility] Address [address] [place] [address] Care Team Providers Name Role Phone Art Pollock Primary Care Provider Allergies No Known Allergies Medications Medication Sig Dispensed Refills Start End Date Status Date levothyroxine Take 250 mcg by 0 Active (SYNTHROID, mouth Every 9 LEVOTHROID) 125 MCG morning on an tablet empty stomach . lactulose Take 20 g by mouth 0 Active (CHRONULAC) 10 2 (two) times gram/15 mL (15 mL) daily . solution gabapentin Take 200 mg by 0 Active (NEURONTIN) 100 MG mouth nightly . capsule docusate sodium Take 100 mg by 0 Active (COLACE) 100 MG mouth daily. capsule sertraline (ZOLOFT) Take 50 mg by 0 Active 50 MG tablet mouth nightly. 9 insulin glargine Inject 10 Units 300 mL 3 Active (LANTUS) 100 subcutaneously 2 9 unit/mL (3 mL) InPn (two) times daily. insulin pen needles Use as directed. 100 each 0 Active (BD ULTRA-FINE Dispense as 9 PURVI) 4 mm x 32 G written, do not substitute. Brand medically necessary.. insulin aspart TID AC sliding 300 mL 3 Active U-100 (NOVOLOG) 100 scale,=<150 no 9 unit/mL InPn insulin, 151-200 1u, 201-250 2u, 251-300 4u, 301-350 6u, 351-400 8u, >400 8u. levothyroxine Take 1 tablet (200 30 tablet 1 01/17/20 Discontinued (SYNTHROID, mcg total) by 9 19 LEVOTHROID) 200 MCG mouth Every tablet morning on an empty stomach. furosemide (LASIX) Take 1.5 tablets 45 tablet 1 02/25/20 Discontinued 40 MG tablet (60 mg total) by 9 mouth daily. spironolactone Take 1 tablet (100 30 tablet 1 02/25/20 Discontinued (ALDACTONE) 100 MG mg total) by mouth 9 tablet daily. glimepiride Take 1 mg by mouth 0 02/25/20 Discontinued (AMARYL) 1 MG every morning 19 tablet before breakfast. ciprofloxacin HCl Take 500 mg by 0 01/17/20 Discontinued (CIPRO) 500 MG mouth. 19 tablet ciprofloxacin HCl Take by mouth. 0 02/25/20 Discontinued (CIPRO ORAL) 19 insulin lispro <150 no insulin 300 mL 3 02/26/20 Discontinued (HUMALOG) 100 151-200 1u, 201-250 2u, 251-300 4u, 301-350 6u, 351-400 8u, > 400 8u call PCP. 9 19 unit/mL InPn insulin lispro <150 no insulin 300 mL 3 02/26/20 Discontinued (HUMALOG) 100 151-200 1u, 201-250 2u, 251-300 4u, 301-350 6u, 351-400 8u, > 400 8u call PCP. 9 19 unit/mL InPn Active Problems Problem Noted Date Liver cirrhosis secondary to WYNN 11/24/2018 Ascites 11/22/2018 HEMALATHA (acute kidney injury) 11/22/2018 Encounters Date Type Specialty Care Team Description 03/20/2019 Abstract Hepatology Nova García MA 03/18/2019 Documentation Hepatology Kimberlee Back RN 03/18/2019 Telephone Hepatology Shelia, PARA PROCEDURE Leiksha E 02/19/2019 Anesthesia Event Terry Roberson MD 02/19/2019 Surgery Virtual, PROCEDURE DONE Surgeon OUTSIDE OR 02/18/2019 Abstract Hepatology Unique Drake 02/16/2019 - Hospital Encounter Oncology Changela, HEMALATHA (acute kidney injury ) (HCC) (Primary Dx); 02/25/2019 Adriana Cochran MD Other ascites; Shiekh Liver cirrhosis secondary to WYNN (HCC); Sheri Guzmán Abdominal distension; MD Jyotsna Portal hypertension (HCC) Demetria Pino MD 02/16/2019 Travel 02/13/2019 Telephone Hepatology Sonny Sal follow up on ascites [place], SNELLER HAND 02/13/2019 Orders Only Hepatology Sonny Sal Other ascites [place], SNELLER HAND (Primary Dx) 02/12/2019 Documentation Hepatology Sonny Sal [place], SNELLER HAND 02/11/2019 Telephone Hepatology Kimberlee Back Appointment RN 02/06/2019 Abstract Hepatology Nova García, MA 02/04/2019 Abstract Hepatology Anali Reed RN 02/03/2019 Abstract Hepatology Nova García, MA 01/23/2019 Abstract Transplant Nova García, MA 01/20/2019 Documentation Hepatology Kristi Ma RN 01/16/2019 Office Visit Hepatology Dami Storm Other ascites (Primary Dx); MD Aylin Liver cirrhosis secondary to WYNN (HCC); Sonny Sal Shortness of breath [place], SNELLER HAND 11/23/2018 Orders Only General Internal Medicine 11/23/2018 Travel 11/22/2018 - Hospital Encounter General Internal Iris, HEAMLATHA ( acute kidney injury) (HCC); 11/24/2018 Medicine MD Esme Other ascites; Athreya, Liver cirrhosis secondary to WYNN (HCC); Nadege Mendez MD Morbid obesity (HCC); Destiney Esqueda Hepatorenal syndrome (HCC); MD Abebe Hyperkalemia; Portal hypertension (HCC); CKD (chronic kidney disease) stage 4, GFR 15-29 ml/min (HCC); Secondary esophageal varices without bleeding (HCC); Diabetes mellitus type 2 in obese (HCC) after 04/05/2018 Immunizations Name Dates Previously Given Next Due Hepatitis B Adult IM 11/24/2018 Influenza Four-QIV Non-PF 5+ YR 11/24/2018, 11/23/2018 (Deferred: Other - will go to procedure.will prefer tomorrow.) Family History Medical History Relation Name Comments Hypertension Father Relation Name Status Comments Father Social History Tobacco Use Types Packs/Day Years Used Date Never Smoker Smokeless Tobacco: Never Used Alcohol Use Drinks/Week oz/Week Comments No Alcohol Habits Answer Date Recorded How often do you have a drink containing alcohol? Never 02/16/2019 How many drinks containing alcohol do you have on a typical Not asked day when you are drinking? How often do you have six or more drinks on one occasion? Not asked Sex Assigned at Date Recorded Not on file Job Start Date Occupation Industry Not on file Not on file Not on file Travel History Travel Start Travel End No recent travel history available. Last Filed Vital Signs Vital Sign Reading Time Taken Blood Pressure 95/51 02/25/2019 8:00 AM CDT Pulse 75 02/25/2019 9:40 AM CDT Temperature 35.9 C (96.6 F) 02/25/2019 8:00 AM CDT Respiratory Rate 18 02/25/2019 9:40 AM CDT Oxygen Saturation 95% 02/25/2019 9:40 AM CDT Inhaled Oxygen Concentration 21% 02/24/2019 11:35 PM CDT Weight 128.6 kg (283 lb 8 oz) 02/16/2019 12:15 AM CDT Height 162.6 cm (5' 4") 02/16/2019 12:15 AM CDT Body Mass Index 48.66 02/16/2019 12:15 AM CDT Plan of Treatment Not on file Procedures Procedure Name Priority Date/Time Associated Diagnosis Comments POCT-GLUCOSE METER Routine 02/25/2019 8:13 Results for this AM CDT procedure are in the results section. BASIC METABOLIC PANEL STAT 02/25/2019 6:00 Results for this (7) AM CDT procedure are in the results section. HEPATIC FUNCTION PANEL Routine 02/25/2019 6:00 Results for this AM CDT procedure are in the results section. POCT-GLUCOSE METER Routine 02/24/2019 9:40 Results for this PM CDT procedure are in the results section. US PARACENTESIS ROSIE 02/24/2019 4:41 Results for this PM CDT procedure are in the results section. BODY FLUID CELL COUNT Routine 02/24/2019 4:09 Results for this WITH DIFFERENTIAL PM CDT procedure are in the results section. BODY FLUID CULTURE + Routine 02/24/2019 4:09 Results for this GRAM STAIN PM CDT procedure are in the results section. POCT-GLUCOSE METER Routine 02/24/2019 1:03 Results for this PM CDT procedure are in the results section. APTT STAT 02/24/2019 11:18 Results for this AM CDT procedure are in the results section. PROTHROMBIN TIME/INR STAT 02/24/2019 11:18 Results for this AM CDT procedure are in the results section. POCT-GLUCOSE METER Routine 02/24/2019 8:34 Results for this AM CDT procedure are in the results section. CBC W/PLT COUNT & AUTO Routine 02/24/2019 4:46 Results for this DIFFERENTIAL AM CDT procedure are in the results section. COMPREHENSIVE Routine 02/24/2019 4:46 Results for this METABOLIC PANEL AM CDT procedure are in the results section. PHOSPHORUS Routine 02/24/2019 4:46 Results for this AM CDT procedure are in the results section. MAGNESIUM Routine 02/24/2019 4:46 Results for this AM CDT procedure are in the results section. CBC W/PLT COUNT & AUTO Routine 02/24/2019 4:46 Results for this DIFFERENTIAL AM CDT procedure are in the results section. CALCIUM, IONIZED Routine 02/24/2019 4:46 Results for this AM CDT procedure are in the results section. HEPATIC FUNCTION PANEL Routine 02/24/2019 4:46 Results for this AM CDT procedure are in the results section. POCT-GLUCOSE METER Routine 02/23/2019 8:53 Results for this PM CDT procedure are in the results section. POCT-GLUCOSE METER Routine 02/23/2019 5:26 Results for this PM CDT procedure are in the results section. POCT-GLUCOSE METER Routine 02/23/2019 8:39 Results for this AM CDT procedure are in the results section. CBC W/PLT COUNT & AUTO Routine 02/23/2019 5:07 Results for this DIFFERENTIAL AM CDT procedure are in the results section. CBC W/PLT COUNT & AUTO Routine 02/23/2019 5:07 Results for this DIFFERENTIAL AM CDT procedure are in the results section. PHOSPHORUS Routine 02/23/2019 5:07 Results for this AM CDT procedure are in the results section. MAGNESIUM Routine 02/23/2019 5:07 Results for this AM CDT procedure are in the results section. COMPREHENSIVE Routine 02/23/2019 5:07 Results for this METABOLIC PANEL AM CDT procedure are in the results section. CALCIUM, IONIZED Routine 02/23/2019 5:07 Results for this AM CDT procedure are in the results section. HEPATIC FUNCTION PANEL Routine 02/23/2019 5:07 Results for this AM CDT procedure are in the results section. POCT-GLUCOSE METER Routine 02/22/2019 8:53 Results for this PM CDT procedure are in the results section. POCT-GLUCOSE METER Routine 02/22/2019 4:37 Results for this PM CDT procedure are in the results section. US PARACENTESIS Routine 02/22/2019 3:59 Results for this PM CDT procedure are in the results section. BODY FLUID CULTURE + Routine 02/22/2019 3:34 Results for this GRAM STAIN PM CDT procedure are in the results section. BODY FLUID CELL COUNT Routine 02/22/2019 3:34 Results for this WITH DIFFERENTIAL PM CDT procedure are in the results section. XR CHEST 1 VIEW Routine 02/22/2019 12:14 Results for this PORTABLE/BEDSIDE PM CDT procedure are in the results section. POCT-GLUCOSE METER Routine 02/22/2019 7:46 Results for this AM CDT procedure are in the results section. MAGNESIUM Routine 02/22/2019 5:29 Results for this AM CDT procedure are in the results section. BASIC METABOLIC PANEL Routine 02/22/2019 5:29 Results for this (7) AM CDT procedure are in the results section. POCT-GLUCOSE METER Routine 02/21/2019 9:09 Results for this PM CDT procedure are in the results section. POCT-GLUCOSE METER Routine 02/21/2019 6:09 Results for this PM CDT procedure are in the results section. POCT-GLUCOSE METER Routine 02/21/2019 7:17 Results for this AM CDT procedure are in the results section. CBC W/PLT COUNT & AUTO Routine 02/21/2019 5:56 Results for this DIFFERENTIAL AM CDT procedure are in the results section. COMPREHENSIVE Routine 02/21/2019 5:56 Results for this METABOLIC PANEL AM CDT procedure are in the results section. PHOSPHORUS Routine 02/21/2019 5:56 Results for this AM CDT procedure are in the results section. MAGNESIUM Routine 02/21/2019 5:56 Results for this AM CDT procedure are in the results section. CBC W/PLT COUNT & AUTO Routine 02/21/2019 5:56 Results for this DIFFERENTIAL AM CDT procedure are in the results section. CALCIUM, IONIZED Routine 02/21/2019 5:56 Results for this AM CDT procedure are in the results section. POCT-GLUCOSE METER Routine 02/20/2019 9:03 Results for this PM CDT procedure are in the results section. ELECTROLYTE PANEL STAT 02/20/2019 6:41 Results for this PM CDT procedure are in the results section. BASIC METABOLIC PANEL STAT 02/20/2019 6:41 Results for this (7) PM CDT procedure are in the results section. POCT-GLUCOSE METER Routine 02/20/2019 6:03 Results for this PM CDT procedure are in the results section. TRANSFUSION SERVICE 02/20/2019 6:01 REPORT - SCAN PM CDT POCT-GLUCOSE METER Routine 02/20/2019 2:08 Results for this PM CDT procedure are in the results section. POCT-GLUCOSE METER Routine 02/20/2019 8:19 Results for this AM CDT procedure are in the results section. CBC W/PLT COUNT & AUTO Routine 02/20/2019 5:23 Results for this DIFFERENTIAL AM CDT procedure are in the results section. CBC W/PLT COUNT & AUTO Routine 02/20/2019 5:23 Results for this DIFFERENTIAL AM CDT procedure are in the results section. PHOSPHORUS Routine 02/20/2019 5:23 Results for this AM CDT procedure are in the results section. MAGNESIUM Routine 02/20/2019 5:23 Results for this AM CDT procedure are in the results section. COMPREHENSIVE Routine 02/20/2019 5:23 Results for this METABOLIC PANEL AM CDT procedure are in the results section. CALCIUM, IONIZED Routine 02/20/2019 5:23 Results for this AM CDT procedure are in the results section. PROTHROMBIN TIME/INR Routine 02/20/2019 5:23 Results for this AM CDT procedure are in the results section. HEPATIC FUNCTION PANEL Routine 02/20/2019 5:23 Results for this AM CDT procedure are in the results section. POCT-GLUCOSE METER Routine 02/19/2019 9:11 Results for this PM CDT procedure are in the results section. POCT-GLUCOSE METER Routine 02/19/2019 6:59 Results for this PM CDT procedure are in the results section. IR TIPSS PROCEDURE Routine 02/19/2019 6:49 Results for this PM CDT procedure are in the results section. PROCEDURE DONE OUTSIDE 02/19/2019 1:00 Other cirrhosis of OR PM CDT liver (HCC) Other ascites Portal hypertension (HCC) CT ABDOMEN WITHOUT IV STAT 02/19/2019 12:22 Results for this CONTRAST PM CDT procedure are in the results section. POCT-GLUCOSE METER Routine 02/19/2019 9:18 Results for this AM CDT procedure are in the results section. ABORH, MANUAL STAT 02/19/2019 6:15 Results for this AM CDT procedure are in the results section. TYPE AND SCREEN, Routine 02/19/2019 4:55 Results for this AUTOMATED AM CDT procedure are in the results section. CBC W/PLT COUNT & AUTO Routine 02/19/2019 4:54 Results for this DIFFERENTIAL AM CDT procedure are in the results section. PHOSPHORUS Routine 02/19/2019 4:54 Results for this AM CDT procedure are in the results section. MAGNESIUM Routine 02/19/2019 4:54 Results for this AM CDT procedure are in the results section. CALCIUM, IONIZED Routine 02/19/2019 4:54 Results for this AM CDT procedure are in the results section. COMPREHENSIVE Routine 02/19/2019 4:54 Results for this METABOLIC PANEL AM CDT procedure are in the results section. CBC W/PLT COUNT & AUTO Routine 02/19/2019 4:54 Results for this DIFFERENTIAL AM CDT procedure are in the results section. PROTHROMBIN TIME/INR Routine 02/19/2019 4:54 Results for this AM CDT procedure are in the results section. HEPATIC FUNCTION PANEL Routine 02/19/2019 4:54 Results for this AM CDT procedure are in the results section. POCT-GLUCOSE METER Routine 02/18/2019 10:51 Results for this PM CDT procedure are in the results section. POCT-GLUCOSE METER Routine 02/18/2019 10:07 Results for this PM CDT procedure are in the results section. US PARACENTESIS Routine 02/18/2019 9:59 Results for this AM CDT procedure are in the results section. BODY FLUID CELL COUNT Routine 02/18/2019 9:42 Results for this WITH DIFFERENTIAL AM CDT procedure are in the results section. PHOSPHORUS Routine 02/18/2019 6:25 Results for this AM CDT procedure are in the results section. MAGNESIUM Routine 02/18/2019 6:25 Results for this AM CDT procedure are in the results section. COMPREHENSIVE Routine 02/18/2019 6:25 Results for this METABOLIC PANEL AM CDT procedure are in the results section. HEPATIC FUNCTION PANEL Routine 02/18/2019 6:25 Results for this AM CDT procedure are in the results section. POCT-GLUCOSE METER Routine 02/18/2019 6:21 Results for this AM CDT procedure are in the results section. CREATININE, RANDOM Routine 02/18/2019 4:07 Results for this URINE AM CDT procedure are in the results section. PROTEIN, RANDOM URINE Routine 02/18/2019 4:07 Results for this AM CDT procedure are in the results section. URINALYSIS W/ Routine 02/18/2019 4:07 Results for this MICROSCOPIC AM CDT procedure are in the results section. CBC W/PLT COUNT & AUTO Routine 02/18/2019 3:58 Results for this DIFFERENTIAL AM CDT procedure are in the results section. APTT Routine 02/18/2019 3:58 Results for this AM CDT procedure are in the results section. CBC W/PLT COUNT & AUTO Routine 02/18/2019 3:58 Results for this DIFFERENTIAL AM CDT procedure are in the results section. CALCIUM, IONIZED Routine 02/18/2019 3:58 Results for this AM CDT procedure are in the results section. PROTHROMBIN TIME/INR Routine 02/18/2019 3:58 Results for this AM CDT procedure are in the results section. US ABDOMINAL WITH Routine 02/18/2019 2:35 Results for this DOPPLER AM CDT procedure are in the results section. POCT-GLUCOSE METER Routine 02/18/2019 12:25 Results for this AM CDT procedure are in the results section. ECHOCARDIOGRAM REPORT 02/17/2019 9:24 - SCAN PM CDT LIMITED 2D Routine 02/17/2019 4:24 Results for this ECHOCARDIOGRAM PM CDT procedure are in the results section. US PARACENTESIS Routine 02/17/2019 3:39 Results for this PM CDT procedure are in the results section. BODY FLUID CULTURE + Routine 02/17/2019 3:37 Results for this GRAM STAIN PM CDT procedure are in the results section. BODY FLUID CELL COUNT Routine 02/17/2019 3:37 Results for this WITH DIFFERENTIAL PM CDT procedure are in the results section. POCT-GLUCOSE METER Routine 02/17/2019 9:46 Results for this AM CDT procedure are in the results section. BASIC METABOLIC PANEL Routine 02/17/2019 5:25 Results for this (7) AM CDT procedure are in the results section. BLOOD CULTURE Routine 02/16/2019 5:43 Results for this PM CDT procedure are in the results section. BLOOD CULTURE Routine 02/16/2019 5:35 Results for this PM CDT procedure are in the results section. POCT-GLUCOSE METER Routine 02/16/2019 3:12 Results for this PM CDT procedure are in the results section. US PARACENTESIS STAT 02/16/2019 2:30 Results for this PM CDT procedure are in the results section. BODY FLUID CELL COUNT Routine 02/16/2019 2:22 Results for this WITH DIFFERENTIAL PM CDT procedure are in the results section. BODY FLUID CULTURE + Routine 02/16/2019 2:22 Results for this GRAM STAIN PM CDT procedure are in the results section. URINALYSIS W/ REFLEX Routine 02/16/2019 5:02 Results for this URINE CULTURE AM CDT procedure are in the results section. CBC W/PLT COUNT & AUTO Routine 02/16/2019 4:56 Results for this DIFFERENTIAL AM CDT procedure are in the results section. CBC W/PLT COUNT & AUTO Routine 02/16/2019 4:56 Results for this DIFFERENTIAL AM CDT procedure are in the results section. MAGNESIUM Routine 02/16/2019 4:56 Results for this AM CDT procedure are in the results section. HEPATIC FUNCTION PANEL Routine 02/16/2019 4:56 Results for this AM CDT procedure are in the results section. PT/APTT Routine 02/16/2019 4:56 Results for this AM CDT procedure are in the results section. BASIC METABOLIC PANEL Routine 02/16/2019 4:56 Results for this (7) AM CDT procedure are in the results section. POCT-GLUCOSE METER Routine 02/16/2019 4:55 Results for this AM CDT procedure are in the results section. RHYTHM STRIP - SCAN 01/21/2019 8:20 AM [...] RHYTHM STRIP - SCAN 12/13/2018 7:50 AM LAYER OUT POCT-GLUCOSE METER Routine 11/24/2018 7:49 Results for this AM LAYER OUT procedure are in the results section. CBC W/PLT COUNT & AUTO Routine 11/24/2018 4:27 Results for this DIFFERENTIAL AM LAYER OUT procedure are in the results section. OSMOLALITY, SERUM Routine 11/24/2018 4:27 Results for this AM LAYER OUT procedure are in the results section. PHOSPHORUS Routine 11/24/2018 4:27 Results for this AM LAYER OUT procedure are in the results section. MAGNESIUM Routine 11/24/2018 4:27 Results for this AM LAYER OUT procedure are in the results section. CALCIUM, IONIZED Routine 11/24/2018 4:27 Results for this AM LAYER OUT procedure are in the results section. CBC W/PLT COUNT & AUTO Routine 11/24/2018 4:27 Results for this DIFFERENTIAL AM LAYER OUT procedure are in the results section. COMPREHENSIVE Routine 11/24/2018 4:27 Results for this METABOLIC PANEL AM LAYER OUT procedure are in the results section. US RENAL COMPLETE Routine 11/24/2018 3:20 Results for this AM LAYER OUT procedure are in the results section. TROPONIN I Routine 11/23/2018 9:41 Results for this PM LAYER OUT procedure are in the results section. ECG 12-LEAD Routine 11/23/2018 9:19 PM LAYER OUT Procedure Note - Interface, External Ris In - 11/23/2018 9:22 PM LAYER OUT Ventricular Rate 77 BPM Atrial Rate 77 BPM P-R Interval 172 ms QRS Duration 80 ms Q-T Interval 392 ms QTC Calculation(Bazett) 443 ms P [place] 44 degrees R [place] -47 degrees T [place] 50 degrees Normal sinus rhythm Left axis deviation Low voltage QRS Cannot rule out Anterior infarct , age undetermined Abnormal ECG No previous ECGs available ECG 12-LEAD STAT 11/23/2018 9:19 PM LAYER OUT POCT-GLUCOSE METER Routine 11/23/2018 8:44 PM LAYER OUT SODIUM, RANDOM URINE Routine 11/23/2018 7:01 PM LAYER OUT PROTEIN, RANDOM URINE Routine 11/23/2018 7:01 PM LAYER OUT POCT-GLUCOSE METER Routine 11/23/2018 5:17 PM LAYER OUT POCT-GLUCOSE METER Routine 11/23/2018 2:01 PM LAYER OUT US ABDOMEN LIMITED Routine 11/23/2018 1:05 PM LAYER OUT US PARACENTESIS Routine 11/23/2018 12:48 PM LAYER OUT URINALYSIS W/ MICROSCOPIC Routine 11/23/2018 10:58 AM LAYER OUT CBC W/PLT COUNT & AUTO Routine 11/23/2018 8:40 AM LAYER OUT Results for this DIFFERENTIAL procedure are in the results section. CBC W/PLT COUNT & AUTO Routine 11/23/2018 8:40 AM LAYER OUT Results for this DIFFERENTIAL procedure are in the results section. POCT-GLUCOSE METER Routine 11/23/2018 7:02 AM LAYER OUT ALPHA FETOPROTEIN (AFP), Routine 11/23/2018 4:53 AM LAYER OUT Results for this TUMOR MARKER procedure are in the results section. HEPATITIS A PANEL Routine 11/23/2018 4:53 AM LAYER OUT HEPATITIS B PANEL Routine 11/23/2018 4:53 AM LAYER OUT HEPATITIS C ANTIBODY Routine 11/23/2018 4:53 AM LAYER OUT ACTIN (SMOOTH MUSCLE) Routine 11/23/2018 4:53 AM LAYER OUT Results for this ANTIBODY, IGG procedure are in the results section. ANTI-MITOCHONDRIAL AB, Routine 11/23/2018 4:53 AM LAYER OUT REFLEX TO TITER [id number]\\, SERUM Routine 11/23/2018 4:53 AM LAYER OUT CERULOPLASMIN Routine 11/23/2018 4:53 AM LAYER OUT FERRITIN Routine 11/23/2018 4:53 AM LAYER OUT IRON, TIBC, % SAT. (WITHOUT Routine 11/23/2018 4:53 AM LAYER OUT Results for this FERRITIN) procedure are in the results section. COMPREHENSIVE METABOLIC Routine 11/23/2018 4:53 AM LAYER OUT Results for this PANEL procedure are in the results section. PT/APTT Routine 11/22/2018 11:31 PM LAYER OUT COMPREHENSIVE METABOLIC Routine 11/22/2018 11:31 PM LAYER OUT Results for this PANEL procedure are in the results section. POCT-GLUCOSE METER Routine 11/22/2018 8:52 PM LAYER OUT after 04/05/2018 Results POC-Glucose meter (02/25/2019 8:13 AM CDT)Only the most recent of33 resultswithin the time period is included. POC-Glucose Meter 213 (H)Comment: TESTED AT 70 - 110 mg/dL [address] [address] Specimen Blood Performing Organization Address [facility] Phone Number [address] [address] [place] Hepatic function panel (02/25/2019 6:00 AM CDT)Only the most recent of8 resultswithin the time period is included. Protein, Total 5.7 (L) 6.0 - 8.3 gm/dL [facility] Albumin 4.2 3.5 - 5.0 g/dL [facility] Total Bilirubin 1.6 (H) 0.2 - 1.2 mg/dL [facility] Bilirubin, Direct 0.8 (H) 0.1 - 0.5 mg/dL [facility] Alkaline Phosphatase 95 40 - 150 U/L [facility] AST 71 (H) 5 - 34 U/L [facility] ALT 68 (H) 6 - 55 U/L [facility] Specimen Blood Performing Organization Address [facility] Phone Number [address] [address] C[place] Basic Metabolic Panel (02/25/2019 6:00 AM CDT)Only the most recent of6 resultswithin the time period is included. Sodium 132 (L) 136 - 145 meq/L [facility] Potassium 4.4 3.5 - 5.1 meq/L [facility] Chloride 100 98 - 107 meq/L [facility] CO2 25 22 - 29 meq/L [facility] BUN 53 (H) 7 - 21 mg/dL [facility] Creatinine 1.80 (H) 0.57 - 1.25 mg/dL [facility] Glucose 211 (H) 70 - 105 mg/dL [facility] Calcium 9.0 8.4 - 10.2 mg/dL [facility] EGFR 29Comment: ESTIMATED GFR IS mL/min/1.73 sq m [facility] NOT ACCURATE CREATININE [facility] CENTER CLEARANCE IN PREDICTING GLOMERULAR FILTRATION RATE. ESTIMATED GFR IS NOT APPLICABLE FOR DIALYSIS PATIENTS. Specimen Blood Performing Organization Address City/State/Zipcode Phone Number [place] [phone] [place] [address] [place] US paracentesis (02/24/2019 4:41 PM CDT)Only the most recent of6 resultswithin the time period is included. Specimen Narrative Performed At FINAL REPORT [facility] PROCEDURE: Ultrasound-guided paracentesis. INDICATION: 59-year-old woman with ascites. DESCRIPTION: After obtaining informed written consent, ultrasound scan of the abdomen identified ascites in the right lower quadrant. The overlying skin was prepped and draped in the usual, sterile fashion and local 2% lidocaine anesthesia was administered. A 5 Italian catheter was advanced into the peritoneal cavity and 6000 cc of serous fluid was removed. The catheter was removed without immediate complication. Samples were sent for analysis. IMPRESSION: Uncomplicated ultrasound-guided paracentesis with 6000 cc fluid removed. Signed: Antwon Bose MD Report Verified Date/Time:02/24/2019 16:42:07 Reading Location: [address] Ultrasound Reading Room Procedure Note Interface, External Ris In - 02/24/2019 4:44 PM CDT FINAL REPORT PROCEDURE: Ultrasound-guided paracentesis. INDICATION: 59-year-old woman with ascites. DESCRIPTION: After obtaining informed written consent, ultrasound scan of the abdomen identified ascites in the right lower quadrant. The overlying skin was prepped and draped in the usual, sterile fashion and local 2% lidocaine anesthesia was administered. A 5 Italian catheter was advanced into the peritoneal cavity and 6000 cc of serous fluid was removed. The catheter was removed without immediate complication. Samples were sent for analysis. IMPRESSION: Uncomplicated ultrasound-guided paracentesis with 6000 cc fluid removed. Signed: Antwon Bose MD Report Verified Date/Time: 02/24/2019 16:42:07 Reading Location: [address] Ultrasound Reading Room Performing Organization Address City/[facility] Phone Number [facility] Body fluid culture + gram stain (02/24/2019 4:09 PM CDT)Only the most recent of4 resultswithin the time period is included. Result No growth [facility] Gram Stain Result <1+ White blood cells seen [facility] Gram Stain Result No organisms seen [facility] Specimen Body Fluid Performing Organization Address City/[facility]/Zipcode Phone Number [address] [address] CENTER Body fluid cell count with differential (02/24/2019 4:09 PM CDT)Only the most recent of5 resultswithin the time period is included. Appearance Hazy (A) Clear [facility] Color Straw Colorless, Straw [facility] RBCs 4,000 (H) <=1 /cu mm [facility] Adjusted WBC Count 140 (H) <=5 /cu mm [facility] Lining Cells 1 <=1 /cu mm [facility] % Segs 1 % [facility] % Lymphs 30 % [facility] % Monos 69 % [facility] % Eos 0 % [facility] % Baso 0 % [facility] Container Body Fluid EDTA Tube [facility] Specimen Body Fluid Performing Organization Address City/State/[facility] Phone Number [address] [address] CENTER aPTT (02/24/2019 11:18 AM CDT)Only the most recent of2 resultswithin the time period is included. PTT 32.5 22.5 - 36.0 seconds [facility] Specimen Blood Performing Organization Address City/[facility] Phone Number [address] [address] CENTER Prothrombin time/INR (02/24/2019 11:18 AM CDT)Only the most recent of5 resultswithin the time period is included. Protime 14.3 11.7 - 14.7 seconds [facility] INR 1.1 <=5.9 [facility] Specimen Blood Narrative Performed At RECOMMENDED COUMADIN/WARFARIN INR THERAPY [facility] RANGES STANDARD DOSE: 2.0 - 3.0 Includes: PROPHYLAXIS for venous thrombosis, systemic embolization; TREATMENT for venous thrombosis and/or pulmonary embolus. HIGH RISK: Target INR is 2.5-3.5 for patients with mechanical heart valves. Performing Organization Address City/[facility] Phone Number [address] [address] [phone] CENTER Calcium, Ionized (02/24/2019 4:46 AM CDT)Only the most recent of7 resultswithin the time period is included. Calcium, Ion 1.08 (L) 1.12 - 1.27 mmol/L [facility] pH, Blood 7.38 [facility] Specimen Blood Performing Organization Address City/State/Zipcode Phone Number [facility] [address] [place] [address] [phone] CENTER CBC with platelet count + automated diff (02/24/2019 4:46 AM CDT)Only the most recent of10 resultswithin the time period is included. WBC 5.9 3.5 - 10.5 K/L [facility] RBC 3.00 (L) 3.93 - 5.22 M/L [facility] Hemoglobin 8.5 (L) 11.2 - 15.7 GM/DL [facility] Hematocrit 25.3 (L) 34.1 - 44.9 % [facility] MCV 84.3 79.4 - 94.8 fL [facility] MCH 28.3 25.6 - 32.2 pg [facility] MCHC 33.6 32.2 - 35.5 GM/DL [facility] RDW 14.8 (H) 11.7 - 14.4 % [facility] Platelets 146 (L) 150 - 450 K/CU MM [facility] MPV 10.1 9.4 - 12.3 fL [facility] nRBC 0 0 - 0 /100 WBC [facility] % Neutros 67 % [facility] % Lymphs 16 % [facility] % Monos 10 % [facility] % Eos 6 % [facility] % Baso 1 % [facility] # Neutros 3.94 1.56 - 6.13 K/L [facility] # Lymphs 0.96 (L) 1.18 - 3.74 K/L [facility] # Monos 0.57 (H) 0.24 - 0.36 K/L [facility] # Eos 0.37 (H) 0.04 - 0.36 K/L [facility] # Baso 0.03 0.01 - 0.08 K/L [facility] Immature Granulocytes-Relative 0 0 - 1 % [facility] Specimen Blood Performing Organization Address City/[facility] Phone Number [address] [address] [phone] CENTER Phosphorus (02/24/2019 4:46 AM CDT)Only the most recent of7 resultswithin the time period is included. Phosphorus 2.1 (L) 2.3 - 4.7 mg/dL [facility] Specimen Blood Performing Organization Address City/[facility]/Zipcode Phone Number [address] [address] CENTER Magnesium (02/24/2019 4:46 AM CDT)Only the most recent of9 resultswithin the time period is included. Magnesium 2.3 1.6 - 2.6 mg/dL [facility] Specimen Blood Performing Organization Address City/[facility]/Zipcode Phone Number [address] [address] [place] Comprehensive metabolic panel (02/24/2019 4:46 AM CDT)Only the most recent of9 resultswithin the time period is included. Protein, Total 5.5 (L) 6.0 - 8.3 gm/dL [facility] Albumin 3.8 3.5 - 5.0 g/dL [facility] Alkaline Phosphatase 125 40 - 150 U/L [facility] Total Bilirubin 0.9 0.2 - 1.2 mg/dL [facility] Sodium 130 (L) 136 - 145 meq/L [facility] Potassium 4.0 3.5 - 5.1 meq/L [facility] Chloride 99 98 - 107 meq/L [facility] CO2 23 22 - 29 meq/L [facility] BUN 51 (H) 7 - 21 mg/dL [facility] Creatinine 2.07 (H) 0.57 - 1.25 mg/dL [facility] Glucose 320 (H) 70 - 105 mg/dL [facility] Calcium 8.7 8.4 - 10.2 mg/dL [facility] AST 111 (H) 5 - 34 U/L [facility] ALT 98 (H) 6 - 55 U/L [facility] EGFR 24Comment: ESTIMATED GFR mL/min/1.73 sq m [facility] IS NOT ACCURATE [facility] CREATININE CLEARANCE IN PREDICTING GLOMERULAR FILTRATION RATE. ESTIMATED GFR IS NOT APPLICABLE FOR DIALYSIS PATIENTS. Specimen Blood Performing Organization Address City/State/Zipcode Phone Number [place] [phone] [place] [address] CENTER XR chest 1 view portable / bedside (02/22/2019 12:14 PM CDT) Specimen Narrative Performed At FINAL REPORT [facility] INDICATION: cough COMPARISON: None. TECHNIQUE: Chest radiograph, single view, portable technique. FINDINGS / IMPRESSION: No pneumonia is demonstrated. There is marked elevation of the right hemidiaphragm. Heart shadow is prominent which may be related to portable technique. No pneumothorax or pleural effusion is demonstrated. Osseous structures unremarkable. Signed: Donnie Carrera MD Report Verified Date/Time:02/22/2019 12:22:24 Reading Location: [address] Consult Reading Room Procedure Note Interface, External Ris In - 02/22/2019 12:24 PM CDT FINAL REPORT INDICATION: cough COMPARISON: None. TECHNIQUE: Chest radiograph, single view, portable technique. FINDINGS / IMPRESSION: No pneumonia is demonstrated. There is marked elevation of the right hemidiaphragm. Heart shadow is prominent which may be related to portable technique. No pneumothorax or pleural effusion is demonstrated. Osseous structures unremarkable. Signed: Donnie Carrera MD Report Verified Date/Time: 02/22/2019 12:22:24 Reading Location: [facility] [id number] Consult Reading Room Performing Organization Address City/State/Zipcode Phone Number [facility] Electrolytes (02/20/2019 6:41 PM CDT) Sodium 132 (L) 136 - 145 meq/L [facility] Potassium 4.8 3.5 - 5.1 meq/L [facility] Chloride 103 98 - 107 meq/L [facility] CO2 20 (L) 22 - 29 meq/L [facility] Specimen Blood Narrative Performed At Please draw [address] Quiroz [facility] at [phone] with results. Call [phone] Performing Organization Address City/State/Zipcode Phone Number [facility] [address] [place] [address] CENTER TRANSFUSION SERVICE REPORT - SCAN (02/20/2019 6:01 PM CDT) Narrative Performed At IR TIPSS Procedure (02/19/2019 6:49 PM CDT) Specimen Narrative Performed At FINAL REPORT [facility] Procedure: TIPS, paracentesis HISTORY: Intractable ascites with recurrent GI bleed Anesthesia: General Approach: Right internal jugular vein Modality: Fluoroscopy and ultrasonography, fluoroscopy time: 51.9 minutes, total dose: 2532 mGy, reference air kerma method TECHNIQUE: After obtaining written informed consent, this procedure was performed without untoward effect using all elements maximal sterile barrier technique. Ultrasound was used to identify the right internal jugular vein. Patent vein was seen and images of the patent vein were saved on PACS. The internal jugular vein was then accessed percutaneously with real-time ultrasound guidance followed by introduction of a guidewire. A guidewire and catheter were advanced into the inferior vena cava and subsequently into the hepatic vein. Hepatic venography was performed disclosing patency of the hepatic vein. Wedged portography was attempted but there was no opacification of the portal vein. Several passes were then made using a coaxial 16-gauge/21-gauge needle from the right hepatic vein towards the portal venous complex but without success. Ultrasound was then used to identify the left portal vein from an anterior approach. A 21-gauge needle was inserted under real-time ultrasound guidance into the left portal vein followed by placement of a microcatheter. The microcatheter was advanced into the main portal vein and portography was performed in attempt to localize the portal vein. The [place] needle set was then reformed with a greater degree of curvature and the system was then placed back into the right hepatic vein with introduction of a 21-gauge needle across the liver into the right portal vein. Guidewire was then advanced centrally followed by introduction of a small catheter. The tract was then dilated with a 5 mm balloon catheter and a bleeding placement of a 10 Italian sheath from the right hepatic vein to the portal vein. Repeat portography was performed and pressures were obtained disclosing a 18 mm portosystemic gradient. A Viatorr 8 cm in length shunt was then introduced and dilated to 8 mm. Post stent placement/balloon dilatation pressures discloses a persistent gradient of approximately 12 mmHg. The tips was then dilated further with a 9 mm balloon. Post balloon dilatation pressure measurements disclosed a final portosystemic gradient of 9 mmHg. The catheters were removed and hemostasis tube. Limited paracentesis was performed yielding 1 L of yellow fluid. The 5 Italian needle/catheter was inserted with real-time ultrasound guidance into the peritoneal cavity in the right lateral abdomen following sterile preparation. Following this, the sheath catheter was removed. CONCLUSION: Successful TIPS and paracentesis. Signed: Yulia Kaba MD Report Verified Date/Time:02/20/2019 09:29:18 Reading Location: [place] [address] Angio Body Reading Room Procedure Note Interface, External Ris In - 02/20/2019 9:31 AM CDT FINAL REPORT Procedure: TIPS, paracentesis HISTORY: Intractable ascites with recurrent GI bleed Anesthesia: General Approach: Right internal jugular vein Modality: Fluoroscopy and ultrasonography, fluoroscopy time: 51.9 minutes, total dose: 2532 mGy, reference air kerma method TECHNIQUE: After obtaining written informed consent, this procedure was performed without untoward effect using all elements maximal sterile barrier technique. Ultrasound was used to identify the right internal jugular vein. Patent vein was seen and images of the patent vein were saved on PACS. The internal jugular vein was then accessed percutaneously with real-time ultrasound guidance followed by introduction of a guidewire. A guidewire and catheter were advanced into the inferior vena cava and subsequently into the hepatic vein. Hepatic venography was performed disclosing patency of the hepatic vein. Wedged portography was attempted but there was no opacification of the portal vein. Several passes were then made using a coaxial 16-gauge/21-gauge needle from the right hepatic vein towards the portal venous complex but without success. Ultrasound was then used to identify the left portal vein from an anterior approach. A 21-gauge needle was inserted under real-time ultrasound guidance into the left portal vein followed by placement of a microcatheter. The microcatheter was advanced into the main portal vein and portography was performed in attempt to localize the portal vein. The [place] needle set was then reformed with a greater degree of curvature and the system was then placed back into the right hepatic vein with introduction of a 21-gauge needle across the liver into the right portal vein. Guidewire was then advanced centrally followed by introduction of a small catheter. The tract was then dilated with a 5 mm balloon catheter and a bleeding placement of a 10 Italian sheath from the right hepatic vein to the portal vein. Repeat portography was performed and pressures were obtained disclosing a 18 mm portosystemic gradient. A Viatorr 8 cm in length shunt was then introduced and dilated to 8 mm. Post stent placement/balloon dilatation pressures discloses a persistent gradient of approximately 12 mmHg. The tips was then dilated further with a 9 mm balloon. Post balloon dilatation pressure measurements disclosed a final portosystemic gradient of 9 mmHg. The catheters were removed and hemostasis tube. Limited paracentesis was performed yielding 1 L of yellow fluid. The 5 Italian needle/catheter was inserted with real-time ultrasound guidance into the peritoneal cavity in the right lateral abdomen following sterile preparation. Following this, the sheath catheter was removed. CONCLUSION: Successful TIPS and paracentesis. Signed: Yulia Kaba MD Report Verified Date/Time: 02/20/2019 09:29:18 Reading Location: [facility] P048 Angio Body Reading Room Performing Organization Address City/State/Zipcode Phone Number [facility] CT abdomen without IV contrast (02/19/2019 12:22 PM CDT) Specimen Narrative Performed At FINAL REPORT [facility] ABDOMINAL CT DATED 02/19/2019 CLINICAL INFORMATION:Cirrhosis or Fatty Liver patient needs to have transjugular intrahepatic portosystemic shunt TECHNIQUE:Axial images of the abdomen were obtained from diaphragm to the iliac crest without GI or intravenous contrast. This exam was performed according to our departmental dose-optimization program, which includes automated exposure control, adjustment of the mA and/or kV according to patient size and/or use of interactive reconstruction technique. COMMENT: Liver is cirrhotic in appearance with irregular margins. Liver is suboptimally evaluated without intravenous contrast. Gallbladder is contracted. No gallstone or biliary dilatation is noted. Liver is enlarged measuring 12 x 5 x 12.6 cm. Pancreas and adrenals are unremarkable. Both kidneys are normal in size. No hydronephrosis, hydroureter, urolithiasis is seen. The small and large bowel are suboptimally evaluated without GI and intravenous contrast. No small or large bowel dilatation is seen. Appendix is not visualized. Small to moderate ascites is present. IMPRESSION: 1. Cirrhosis with splenomegaly. 2. Ascites. Signed: Giovanni Haas MD Report Verified Date/Time:02/19/2019 12:33:54 Reading Location: [facility] B1 C013Y CT Body Reading Room Procedure Note Interface, External Ris In - 02/19/2019 12:36 PM CDT FINAL REPORT ABDOMINAL CT DATED 02/19/2019 CLINICAL INFORMATION: Cirrhosis or Fatty Liver patient needs to have transjugular intrahepatic portosystemic shunt TECHNIQUE: Axial images of the abdomen were obtained from diaphragm to the iliac crest without GI or intravenous contrast. This exam was performed according to our departmental dose-optimization program, which includes automated exposure control, adjustment of the mA and/or kV according to patient size and/or use of interactive reconstruction technique. COMMENT: Liver is cirrhotic in appearance with irregular margins. Liver is suboptimally evaluated without intravenous contrast. Gallbladder is contracted. No gallstone or biliary dilatation is noted. Liver is enlarged measuring 12 x 5 x 12.6 cm. Pancreas and adrenals are unremarkable. Both kidneys are normal in size. No hydronephrosis, hydroureter, urolithiasis is seen. The small and large bowel are suboptimally evaluated without GI and intravenous contrast. No small or large bowel dilatation is seen. Appendix is not visualized. Small to moderate ascites is present. IMPRESSION: 1. Cirrhosis with splenomegaly. 2. Ascites. Signed: Giovanni Haas MD Report Verified Date/Time: 02/19/2019 12:33:54 Reading Location: [facility] C013Y CT Body Reading Room Performing Organization Address [facility] Phone Number [facility] ABOR, manual (02/19/2019 6:15 AM CDT) ABO Grouping A [facility] Rh Factor POS [facility] Specimen Blood Performing Organization Address [facility] Phone Number [address] [address] Type and screen, automated (02/19/2019 4:55 AM CDT) ABO/RH AUTOMATED (BEAKER) A POSITIVE [facility] Ab Scrn NEGATIVE [facility] Specimen Blood Performing Organization Address [facility] Phone Number [address] [address] Protein, random urine (02/18/2019 4:07 AM CDT)Only the most recent of2 resultswithin the time period is included. Protein, Urine 12 0 - 14 mg/dL [facility] Specimen Urine Performing Organization Address [facility]/Zipcode Phone Number [facility] [address] [place] [address] [place] Creatinine, random urine (02/18/2019 4:07 AM CDT) Creatinine, Ur 115.9 mg/dL [facility] Specimen Urine Narrative Performed At Reference Range: No Normals [facility] Performing Organization Address [facility] Phone Number [facility] [address] [place] [address] [place] Urinalysis w/Microscopic (02/18/2019 4:07 AM CDT)Only the most recent of2 resultswithin the time period is included. Color, UA Yellow [facility] Clarity, UA Clear [facility] Specific [place], UA 1.013 1.001 - 1.035 [facility] pH, UA 5.0 5.0 - 8.0 [facility] Protein, UA Negative Negative [facility] Glucose, UA 100 mg/dL (A) Negative [facility] Ketones, UA Negative Negative [facility] Bilirubin, UA Negative Negative [facility] Blood, UA Negative Negative [facility] Nitrite, UA Negative Negative [facility] Leukocytes, UA Large (A) Negative [facility] Urobilinogen, UA 0.2 0.2 - 1.0 mg/dL [facility] RBC, UA 2 /HPF [facility] WBC, UA 24 /HPF [facility] Squam Epithel, UA 14 /HPF [facility] Hyaline Casts, UA 3 /LPF [facility] Specimen Source Urine, Voided [facility] Specimen Urine Performing Organization Address City/State/Zipcode Phone Number [facility] [address] [place] [address] CENTER US abdominal with doppler (02/18/2019 2:35 AM CDT) Specimen Narrative Performed At FINAL REPORT [facility] INDICATION: TIPS workup, assess for vessels patency COMPARISON: February 17, 2019, February 16, 2019 TECHNIQUE: Real-time cuevas-scale transabdominal and color and spectral Doppler ultrasound. FINDINGS: Liver: Size: 12.9cm. Echogenicity: Coarsened. Masses/lesions: None. Surface Nodularity: None. Intrahepatic bile ducts: Normal. Common bile duct: 0.4cm. MPV: 1.2cm. Gallbladder: Stones: None. Sludge: None. Wall thickness: 0.4 cm. Pericholecystic fluid: None. Sonographic Stewart's sign: No sonographic Stewart's sign. Pancreas: Head and uncinate process: Unremarkable. Body and tail: Not well-seen. Spleen: Size: 13.3cm. Echogenicity: Multiple echogenic foci. Right kidney: Size: 11.2 x 5.2 x 5.3 cm. Parenchyma: Normal echogenicity. No cysts. No stones. Hydronephrosis: None. Left kidney: Size: 11.6 x 5.0 x 4.5 cm. Parenchyma: Normal echogenicity. No cysts. No stones. Hydronephrosis: None. Ascites: Large volume. Regional Vasculature: The visible abdominal aorta, IVC and hepatic veins are patent. Color and Spectral imaging: MPV: Diameter: 1.2 Flow: Hepatopedal. Velocity: 28.2 cm/sec Filling defects: None Left and right portal veins: Patent. Flow: Antegrade Filling defects: None. Hepatic arteries: Patent RI proper hepatic: 0.7 RI right hepatic: 0.7 RI left hepatic: 0.7 IVC, Hepatic venous confluence, right HV, middle HV and left HV are patent. Additional findings: None. IMPRESSION: Cirrhosis and large volume ascites. Portal vein demonstrates hepatopedal flow. Signed: Analia Mckinney MD Report Verified Date/Time:02/18/2019 03:48:21 Reading Location: [address] Neuro Reading Room Procedure Note Interface, External Ris In - 02/18/2019 3:50 AM CDT FINAL REPORT INDICATION: TIPS workup, assess for vessels patency COMPARISON: February 17, 2019, February 16, 2019 TECHNIQUE: Real-time cuevas-scale transabdominal and color and spectral Doppler ultrasound. FINDINGS: Liver: Size: 12.9cm. Echogenicity: Coarsened. Masses/lesions: None. Surface Nodularity: None. Intrahepatic bile ducts: Normal. Common bile duct: 0.4cm. MPV: 1.2cm. Gallbladder: Stones: None. Sludge: None. Wall thickness: 0.4 cm. Pericholecystic fluid: None. Sonographic Stewart's sign: No sonographic Stewart's sign. Pancreas: Head and uncinate process: Unremarkable. Body and tail: Not well-seen. Spleen: Size: 13.3cm. Echogenicity: Multiple echogenic foci. Right kidney: Size: 11.2 x 5.2 x 5.3 cm. Parenchyma: Normal echogenicity. No cysts. No stones. Hydronephrosis: None. Left kidney: Size: 11.6 x 5.0 x 4.5 cm. Parenchyma: Normal echogenicity. No cysts. No stones. Hydronephrosis: None. Ascites: Large volume. Regional Vasculature: The visible abdominal aorta, IVC and hepatic veins are patent. Color and Spectral imaging: MPV: Diameter: 1.2 Flow: Hepatopedal. Velocity: 28.2 cm/sec Filling defects: None Left and right portal veins: Patent. Flow: Antegrade Filling defects: None. Hepatic arteries: Patent RI proper hepatic: 0.7 RI right hepatic: 0.7 RI left hepatic: 0.7 IVC, Hepatic venous confluence, right HV, middle HV and left HV are patent. Additional findings: None. IMPRESSION: Cirrhosis and large volume ascites. Portal vein demonstrates hepatopedal flow. Signed: Analia Mckinney MD Report Verified Date/Time: 02/18/2019 03:48:21 Reading Location: [facility] C013V Neuro Reading Room Performing Organization Address City/State/Zipcode Phone Number [facility] ECHOCARDIOGRAM REPORT - SCAN (02/17/2019 9:24 PM CDT) Narrative Performed At Limited 2D Echocardiogram (02/17/2019 4:24 PM CDT) Ejection Fraction [facility] ECHO [facility]ART[facility] Specimen Narrative Performed At Transthoracic Echocardiography Report (TTE) [facility] ECHO [facility]ART[facility] Demographics Patient Alma Rossi of Study02/17/2019 KATE Female Visit [id number] Unknown Room [id number] Number Date of 1960Referring Physician ByronMD Age 59 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 Clinical History HEMALATHA, Cirrhosis, DMII, HTN, Obesity HGB 9.8 HCT 31.4 % Contrast Medium: Bubble Study. Height: 64 inches Weight: 128.37 kg (283 lbs) BSA: 2.27 m^2 BMI: 48.58 kg/m^2 HR: 72 bpm BP: 105/50 mmHg Summary Limited 2D exam and Doppler exam to address study indication. Normal left ventricular chamber size. Normal wall thickness. Normal overall left ventricular systolic function. No apparent segmental wall motion abnormalities. Estimated LVEF by qualitative assessment is normal (>60%) . IV saline contrast with delayed imaging is negative for intra pulmonic shunting. Estimated peak systolic PA pressure is 35-40 mmHg . Ascites is noted. Signature Findings Left Ventricle Normal left ventricular chamber size. Normal wall th ickness. Normal overall left ventricular systolic fu nction. No apparent segmental wall motion ab normalities. Es timated LVEF by qualitative assessment is normal (> 60%) . Melida diazd 2D exam and Doppler exam to address study in dication. Left AtriumLA size is normal (16-34 ml/m2) . Right VentricleThe right ventricular chamber size and systolic fu nction are within normal limits. Right Atrium RA size is normal. Atrial SeptumIV saline contrast with delayed imaging is negative fo r intra pulmonic shunting. IV saline contrast injection was negative for a PFO (p atent foramen ovale) at rest and post Valsalva . Aortic Valve Normal AoV structure. Mitral Valve Normal MV structure. Tricuspid ValveTV structure is normal. A trace of tricuspid regurgitation. Es timated peak systolic PA pressure is 35-40 mmHg . Pulmonic Valve PV is not well visualized. AortaAortic root size (SInus of Valsalva diameter) is no rmal . PericardiumNo pericardial effusion is visualized. IVC/SVC/PA/PV/PleuralAscites is noted. Th e estimated RA pressure by IVC dynamics 0-5mmHg . Chambers/Structures Left Atrium LA Dimension: 4.42 cmLA Area: 20.16 cm^2 LA Volume: 60.5 ml LA Vol. Index: 27 ml/m^2 Left Ventricle LVIDd: 4.36 cm LVIDs: 2.2 cm LV Septum Diastolic: 1.1 cm LV PW Diastolic: 0.99 cm LV FS: 49.5 % LVOT Diameter: 1.9 cm Aorta Ao Root S of Yvette.: 2.47 cm Doppler/Quantitative Measurements LVOT LVOT Diameter: 1.9 cm LVOT Area: 2.84 cm^2 Procedure Note Interface, External Ris In - 02/17/2019 5:50 PM CDT Transthoracic Echocardiography Report (TTE) Demographics Patient Name DEE VELAZQUEZ Date of Study 02/17/2019 KATE Gender Female Visit Number [id number] Race Unknown Room Number [id number] Number Date of 1960 Referring Physician LOLI Matthews Age 59 year(s) Comptroller Emir Chahal RDCS Interpreting Guillermo Trammell MD Physician Procedure Type of Study TTE procedure:LIMITED 2D ECHOCARDIOGRAM (Pending Discharge) Indications:Evaluate RVSP and liver failure . Clinical History HEMALATHA, Cirrhosis, DMII, HTN, Obesity HGB 9.8 HCT 31.4 % Contrast Medium: Bubble Study. Height: 64 inches Weight: 128.37 kg (283 lbs) BSA: 2.27 m^2 BMI: 48.58 kg/m^2 HR: 72 bpm BP: 105/50 mmHg Summary Limited 2D exam and Doppler exam to address study indication. Normal left ventricular chamber size. Normal wall thickness. Normal overall left ventricular systolic function. No apparent segmental wall motion abnormalities. Estimated LVEF by qualitative assessment is normal (>60%) . IV saline contrast with delayed imaging is negative for intra pulmonic shunting. Estimated peak systolic PA pressure is 35-40 mmHg . Ascites is noted. Signature Findings Left Ventricle Normal left ventricular chamber size. Normal wall thickness. Normal overall left ventricular systolic function. No apparent segmental wall motion abnormalities. Estimated LVEF by qualitative assessment is normal (>60%) . Limited 2D exam and Doppler exam to address study indication. Left Atrium LA size is normal (16-34 ml/m2) . Right Ventricle The right ventricular chamber size and systolic function are within normal limits. Right Atrium RA size is normal. Atrial Septum IV saline contrast with delayed imaging is negative for intra pulmonic shunting. IV saline contrast injection was negative for a PFO (patent foramen ovale) at rest and post Valsalva . Aortic Valve Normal AoV structure. Mitral Valve Normal MV structure. Tricuspid Valve TV structure is normal. A trace of tricuspid regurgitation. Estimated peak systolic PA pressure is 35-40 mmHg . Pulmonic Valve PV is not well visualized. Aorta Aortic root size (SInus of Valsalva diameter) is normal . Pericardium No pericardial effusion is visualized. IVC/SVC/PA/PV/Pleural Ascites is noted. The estimated RA pressure by IVC dynamics 0-5mmHg . Chambers/Structures Left Atrium LA Dimension: 4.42 cm LA Area: 20.16 cm^2 LA Volume: 60.5 ml LA Vol. Index: 27 ml/m^2 Left Ventricle LVIDd: 4.36 cm LVIDs: 2.2 cm LV Septum Diastolic: 1.1 cm LV PW Diastolic: 0.99 cm LV FS: 49.5 % LVOT Diameter: 1.9 cm Aorta Ao Root S of Yvette.: 2.47 cm Doppler/Quantitative Measurements LVOT LVOT Diameter: 1.9 cm LVOT Area: 2.84 cm^2 Performing Organization Address City/[facility]/Zipcode Phone Number [facility]ART[facility] CPACS Blood Culture - Routine (Right Venipuncture) (02/16/2019 5:43 PM CDT)Only the most recent of2 resultswithin the time period is included. Result No growth in 5 days [facility] Specimen Blood Performing Organization Address City/[facility]/Zipcode Phone Number [address] [address] CENTER Urinalysis w/Microscopic + Reflex to Culture (02/16/2019 5:02 AM CDT) Color, UA Yellow [facility] Clarity, UA Hazy [facility] Specific [place], UA 1.021 1.001 - 1.035 [facility] pH, UA 5.5 5.0 - 8.0 [facility] Protein, UA 30 mg/dL (A) Negative [facility] Glucose, UA Negative Negative [facility] Ketones, UA Negative Negative [facility] Bilirubin, UA Negative Negative [facility] Blood, UA Negative Negative [facility] Nitrite, UA Negative Negative [facility] Leukocytes, UA Large (A) Negative [facility] Urobilinogen, UA 2.0 (H) 0.2 - 1.0 mg/dL [facility] RBC, UA 7 /HPF [facility] WBC, UA 7 /HPF [facility] Mucus Rare [facility] Squam Epithel, UA 6 /HPF [facility] Hyaline Casts, UA 40 /LPF [facility] Specimen Source [facility] Specimen Urine Performing Organization Address City/State/Zipcode Phone Number [address] [address] CENTER PT/aPTT (02/16/2019 4:56 AM CDT)Only the most recent of2 resultswithin the time period is included. Protime 13.4 11.7 - 14.7 seconds [facility] INR 1.0 <=5.9 [facility] PTT 30.9 22.5 - 36.0 seconds [facility] Specimen Blood Narrative Performed At RECOMMENDED COUMADIN/WARFARIN INR THERAPY [facility] RANGES STANDARD DOSE: 2.0 - 3.0 Includes: PROPHYLAXIS for venous thrombosis, systemic embolization; TREATMENT for venous thrombosis and/or pulmonary embolus. HIGH RISK: Target INR is 2.5-3.5 for patients with mechanical heart valves. Performing Organization Address City/[facility]/Zipcode Phone Number [address] [address] CENTER RHYTHM STRIP - SCAN (01/21/2019 8:20 AM CDT)Only the most recent of2 resultswithin the time period is included. Narrative Performed At Alpha fetoprotein (AFP), tumor marker (01/16/2019 2:25 PM CDT)Only the most recent of2 resultswithin the time period is included. Alpha-Fetoprotein 3.4 <10.0 ng/mL [facility] Specimen Blood Performing Organization Address City/State/Zipcode Phone Number [facility] [address] [place] [address] [place] Osmolality, serum (11/24/2018 4:27 AM LAYER OUT) Osmolality Serum 301 (H) 275 - 295 mOsm/kg [facility] Specimen Blood Performing Organization Address City/[facility]/Zipcode Phone Number [facility] [address] [place], [place] [phone] [place] US renal complete (11/24/2018 3:20 AM LAYER OUT) Specimen Narrative Performed At FINAL REPORT [facility] U/S, RENAL, COMPLETE CLINICAL INDICATION:HEMALATHA/CKD COMPARISON: None [...] MD Report Verified Date/Time:11/24/2018 03:59:04 Reading Location: [address] Transitional Reading Room Procedure Note Interface, External Ris In - 11/24/2018 4:01 AM LAYER OUT FINAL REPORT U/S, RENAL, COMPLETE CLINICAL INDICATION: [...] Report Verified Date/Time: 11/24/2018 03:59:04 Reading Location: [address] Transitional Reading Room Performing Organization Address City/State/[facility] Phone Number [facility] Troponin I (11/23/2018 9:41 PM LAYER OUT) Troponin I <0.01 0.00 - 0.03 ng/mL [facility] Specimen Blood Narrative Performed At Troponin I (TnI) levels must be interpreted [facility] in the context of the [...] disease, and persistent tachyarrhythmia. Performing Organization Address City/[facility]/Zipcode Phone Number [facility] [address] [place] [address] [phone] CENTER ECG 12 lead (11/23/2018 9:19 PM LAYER OUT) Specimen Narrative Performed At Ventricular Rate 77 BPM GE MUSE Atrial Rate 77 BPM P-R Interval 172 ms QRS Duration 80 ms Q-T Interval 392 ms QTC Calculation(Bazett) 443 ms P [place] 44 degrees R [place] -47 degrees T [place] 50 degrees Normal sinus rhythm Left axis deviation Low voltage QRS Cannot rule out Anterior infarct , age undetermined Abnormal ECG No previous ECGs available Confirmed by MD JP, GUILLERMO Carrion ([id number]) on 11/24/2018 6:45:48 AM Procedure Note Interface, External Ris In - 11/24/2018 6:45 AM LAYER OUT Ventricular Rate 77 BPM Atrial Rate 77 BPM P-R Interval 172 ms QRS Duration 80 ms Q-T Interval 392 ms QTC Calculation(Bazett) 443 ms P [place] 44 degrees R [place] -47 degrees T [place] 50 degrees Normal sinus rhythm Left axis deviation Low voltage QRS Cannot rule out Anterior infarct , age undetermined Abnormal ECG No previous ECGs available Confirmed by MD TRAMMELL JOSEPH P ([id number]) on 11/24/2018 6:45:48 AM Performing Organization Address City/State/Zipcode Phone Number [employer] Sodium, random urine (11/23/2018 7:01 PM LAYER OUT) Sodium Urine <20 meq/L [facility] Specimen Urine Narrative Performed At Reference Range: No Normals [facility] Performing Organization Address City/State/Zipcode Phone Number [place] [phone] [place] [address] CENTER US abdomen limited (11/23/2018 1:05 PM LAYER OUT) Specimen Narrative Performed At FINAL REPORT [facility] ULTRASOUND RIGHT UPPER QUADRANT OF THE ABDOMEN [...] MD Report Verified Date/Time:11/23/2018 13:29:13 Reading Location: [facility] C013T Transitional Reading Room Procedure Note Interface, External Ris In - 11/23/2018 1:31 PM LAYER OUT FINAL REPORT ULTRASOUND RIGHT UPPER QUADRANT OF [...] Report Verified Date/Time: 11/23/2018 13:29:13 Reading Location: [facility] B1 C013T Transitional Reading Room Performing Organization Address City/State/Zipcode Phone Number [facility] Anti-Mitochondrial Ab, reflex to titer (11/23/2018 4:53 AM LAYER OUT) Scan Result [facility] Specimen Blood Narrative Performed At Performing Organization Address City/State/Zipcode Phone Number [facility] [place] [address] [facility] [address] [facility] Iron, TIBC, % sat. (without ferritin) (11/23/2018 4:53 AM LAYER OUT) Iron 46.0 40.0 - 160.0 ug/dL [facility] TIBC 269 250 - 450 ug/dL [facility] Iron % Saturation 17 (L) 20 - 55 % [facility] Specimen Blood Performing Organization Address [facility] Phone Number [address] [address] [phone] [place] Hepatitis B Panel (11/23/2018 4:53 AM LAYER OUT) Hep B Core Total Ab NON-REACTIVE Nonreactive [facility] Hep B S Ab <8.0 <8.0 mIU/mL [facility] hepatitis B Surface Ag NON-REACTIVE Nonreactive [facility] Specimen Blood Performing Organization Address [facility] Phone Number [address] [address] [phone] [place] Hepatitis A Panel (11/23/2018 4:53 AM LAYER OUT) Hep A IgM HEPATITIS A TEST NEGATIVE Nonreactive [facility] Hep A IgG Nonreactive Nonreactive [facility] Specimen Blood Performing Organization Address [facility] Phone Number [address] [address] [place] Hepatitis C antibody (11/23/2018 4:53 AM LAYER OUT) Hepatitis C Ab NON-REACTIVE Nonreactive [facility] Specimen Blood Performing Organization Address [facility] Phone Number [address] [address] [place] Actin (Smooth Muscle) Antibody, IgG (11/23/2018 4:53 AM LAYER OUT) Anti-Smooth Muscle Ab <20 See Note: U [...] Specimen Blood Narrative Performed At Performing Lab [facility] [id number] [place] [address] Gilles Moss MD, PhD, LINA Performing Organization Address [facility] Phone Number [facility] [place] [address] [facility] [address] [facility] [id number] (11/23/2018 4:53 AM LAYER OUT) A-1 Antitrypsin 202.70 (H) 90.00 - 200.00 mg/dL [facility] Specimen Blood Performing Organization Address [facility] Phone Number [facility] [address] [place] [address] CENTER Ceruloplasmin (11/23/2018 4:53 AM LAYER OUT) Ceruloplasmin 28 18 - 53 mg/dL [facility] Comment: Adults:Males: 18-36 mg/dL Females: 18-53 mg/dL Pediatrics:Males (mg/dL)Females (mg/dL) 0-30 Days 8-25 3-28 31 Days-11 Month -43 1-3 [id number] 4-6 [id number] 7-9 [id number] 10-12 [id number] 13-15 [id number] 16-18 [id number] The pediatric ranges are derived from the following criteria: Sacha MONACO, Juwan JM, Poornima J et al Pediatric reference ranges for [id number] and ceruloplasmin. Clin. Chem 1997; 43:S1999 Pediatric Reference Ranges, 2nd., [place] Sachaet al. editors. [employer], [place], [place] 1997. Specimen Blood Narrative Performed At Performing Lab [facility] *SPL [facility], [address] [place] [phone] Noe Rosario MD, PhD Performing Organization Address City/State/Zipcode Phone Number [facility] [place] [address] [facility]ORPORATED [address] [facility] Ferritin (11/23/2018 4:53 AM LAYER OUT) Ferritin 52 5 - 275 ng/mL [facility] Specimen Blood Performing Organization Address City/State/Zipcode Phone Number [facility] [address] [place] [address] CENTER after 04/05/2018 Insurance Payer Benefit Plan / Group Subscriber ID Type Phone Address ANISA SHELL xxxxxxxxxxx Advance Directives For more information, please contact:[address] [phone] Code Status Date Activated Date Inactivated Comments Full Code 02/16/2019 1:25 AM 02/25/2019 12:25 PM This code status was determined by: Patient Full Code 11/22/2018 10:01 PM 02/16/2019 12:02 AM This code status was determined by: Patient
--- OUTSIDE RECORDS SUMMARY | 2019-04-06 15:15 | XMS REPORT ---
:1960 [facility] Address [address] [place] [address] Dr. Melton [address] [place] [id number] Care Team Providers Name Role Phone MOJGAN STEWART Unavailable Unavailable DANIEL FREIRE Unavailable Unavailable ZEB CASEY Unavailable Unavailable Problems This patient has no known problems. Allergies, Adverse Reactions, Alerts This patient has no known allergies or adverse reactions. Medications This patient has no known medications. Results Test Description Test Time Test Comments Text Results Atomic Results Result Comments BODY FLUID CULTURE + GRAM STAIN 2019-02-27 13:44:00 Test Item Value Reference Range Comments CULTURE (BEAKER) (test nmft=3431) No growth GRAM STAIN RESULT (BEAKER) (test gmcf=1602) <1+ White blood cells seen GRAM STAIN RESULT (BEAKER) (test szln=47493) No organisms seen BODY FLUID CULTURE + GRAM [id number] 14:06:00 Test Item Value Reference Range Comments CULTURE (BEAKER) (test pguf=8187) No growth GRAM STAIN RESULT (BEAKER) (test No White blood cells seen oagu=0155) GRAM STAIN RESULT (BEAKER) (test No organisms seen sxxz=93703) BASIC METABOLIC [id number] 08:41:00 Test Item Value Reference Range Comments SODIUM (BEAKER) (test 132 meq/L 136-145 iqsg=545) POTASSIUM (BEAKER) (test 4.4 meq/L 3.5-5.1 jrtp=838) CHLORIDE (BEAKER) (test 100 meq/L 98-107 gfqn=897) CO2 (BEAKER) (test 25 meq/L 22-29 urja=571) BLOOD UREA NITROGEN 53 mg/dL 7-21 (BEAKER) (test wtur=971) CREATININE (BEAKER) (test 1.80 mg/dL 0.57-1.25 cbbv=238) GLUCOSE RANDOM (BEAKER) 211 mg/dL 70-105 (test hozw=877) CALCIUM (BEAKER) (test 9.0 mg/dL 8.4-10.2 gtxj=241) EGFR (BEAKER) (test 29 mL/min/1.73 sq m ESTIMATED GFR IS NOT faev=7711) ACCURATE CREATININE CLEARANCE IN PREDICTING GLOMERULAR FILTRATION RATE. ESTIMATED GFR IS NOT APPLICABLE FOR DIALYSIS PATIENTS. POCT-GLUCOSE [id number] 08:16:00 Test Item Value Reference Range Comments POC-GLUCOSE METER (BEAKER) 213 mg/dL 70-110 TESTED AT [facility] [address] [place] [address] (test qtuw=1506) [facility] [address] HEPATIC FUNCTION [id number] 06:43:00 Test Item Value Reference Range Comments TOTAL PROTEIN (BEAKER) (test tfzj=545) 5.7 gm/dL 6.0-8.3 ALBUMIN (BEAKER) (test xzen=4685) 4.2 g/dL 3.5-5.0 BILIRUBIN TOTAL (BEAKER) (test vzwv=697) 1.6 mg/dL 0.2-1.2 BILIRUBIN DIRECT (BEAKER) (test exad=941) 0.8 mg/dL 0.1-0.5 ALKALINE PHOSPHATASE (BEAKER) (test tjzv=268) 95 U/L 40-150 AST (SGOT) (BEAKER) (test tape=868) 71 U/L 5-34 ALT (SGPT) (BEAKER) (test nwlp=452) 68 U/L 6-55 POCT-GLUCOSE [id number] 22:00:00 Test Item Value Reference Range Comments POC-GLUCOSE METER (BEAKER) 341 mg/dL 70-110 Notified ALEXI ENNIS/TESTED AT [facility] (test cyge=2259) [address] [place] [address] BODY FLUID CELL COUNT WITH [id number] 20:00:00 Test Item Value Reference Range Comments APPEARANCE FLUID (BEAKER) (test pkyv=306) Hazy Clear COLOR FLUID (BEAKER) (test rlwi=025) Straw Colorless, Straw RBC FLUID (BEAKER) (test ozdq=785) 4000 /cu mm <=1 ADJUSTED WBC FLUID (BEAKER) (test temi=2588) 140 /cu mm <=5 LINING CELLS (BEAKER) (test jxuo=8296) 1 /cu mm <=1 NEUTROPHILS FLUID (BEAKER) (test tztq=6579) 1 % LYMPHS FLUID (BEAKER) (test aokj=006) 30 % MONO/MACROPHAGE FLUID (BEAKER) (test bbtm=699) 69 % EOSINOPHILS FLUID (BEAKER) (test icew=520) 0 % BASO FLUID (BEAKER) (test safj=997) 0 % CONTAINER BODY FLUID (BEAKER) (test yxlk=2257) EDTA Tube U/S, [id number] 16:42:00Reason for exam:->ascites limited 6 litersFINAL REPORT PROCEDURE: Ultrasound-guided paracentesis. INDICATION: 59-year-old woman with ascites. DESCRIPTION: After obtaining informed written consent, ultrasound scan of the abdomen identified ascites in the right lower quadrant. The overlying skin was prepped and draped in the usual, sterile fashion and local 2% lidocaine anesthesia was administered. A 5 Bulgarian catheter was advanced into the peritoneal cavity and 6000 cc of serous fluid was removed. The catheter was removed without immediate complication. Samples were sent for analysis. IMPRESSION:Uncomplicated ultrasound-guided paracentesis with 6000 cc fluid removed. Signed: Antwon Bose MDReport Verified Date/Time: 02/24/2019 16:42:07 Reading Location: [address] Ultrasound Reading Room POCT-GLUCOSE [id number] 13:07:00 Test Item Value Reference Range Comments POC-GLUCOSE METER (BEAKER) 290 mg/dL 70-110 TESTED AT [address] (test oiib=2298) [facility] [address] PROTHROMBIN [id number] 12:01:00 Test Item Value Reference Range Comments PROTIME (BEAKER) (test iwtb=667) 14.3 seconds 11.7-14.7 INR (BEAKER) (test iaso=939) 1.1 <=5.9 RECOMMENDED COUMADIN/WARFARIN INR THERAPY RANGESSTANDARD DOSE: 2.0 - 3.0 Includes: PROPHYLAXIS forvenous thrombosis, systemic embolization; TREATMENT for venous thrombosis and/or pulmonary embolus.HIGH RISK: Target INR is 2.5-3.5 for patients with mechanical heart valves.[id number] 12:01:00 Test Item Value Reference Range Comments PARTIAL THROMBOPLASTIN TIME (BEAKER) (test 32.5 seconds 22.5-36.0 tdnw=422) POCT-GLUCOSE [id number] 08:39:00 Test Item Value Reference Range Comments POC-GLUCOSE METER (BEAKER) 279 mg/dL 70-110 TESTED AT [facility] [address] [facility] (test gqjv=9614) [place] [address] CALCIUM, [id number] 07:04:00 Test Item Value Reference Range Comments CALCIUM IONIZED (BEAKER) (test uvkt=641) 1.08 mmol/L 1.12-1.27 PH, BLOOD (BEAKER) (test yjrx=4185) 7.38 COMPREHENSIVE METABOLIC [id number] 05:59:00 Test Item Value Reference Range Comments TOTAL PROTEIN (BEAKER) 5.5 gm/dL 6.0-8.3 (test qahb=049) ALBUMIN (BEAKER) (test 3.8 g/dL 3.5-5.0 pwwk=6097) ALKALINE PHOSPHATASE 125 U/L 40-150 (BEAKER) (test hpoe=705) BILIRUBIN TOTAL (BEAKER) 0.9 mg/dL 0.2-1.2 (test juut=595) SODIUM (BEAKER) (test 130 meq/L 136-145 hruq=780) POTASSIUM (BEAKER) (test 4.0 meq/L 3.5-5.1 imeq=490) CHLORIDE (BEAKER) (test 99 meq/L 98-107 puoe=573) CO2 (BEAKER) (test 23 meq/L 22-29 jsru=149) BLOOD UREA NITROGEN 51 mg/dL 7-21 (BEAKER) (test qxod=436) CREATININE (BEAKER) (test 2.07 mg/dL 0.57-1.25 aueb=367) GLUCOSE RANDOM (BEAKER) 320 mg/dL 70-105 (test ajah=253) CALCIUM (BEAKER) (test 8.7 mg/dL 8.4-10.2 ppje=729) AST (SGOT) (BEAKER) (test 111 U/L 5-34 cdvi=188) ALT (SGPT) (BEAKER) (test 98 U/L 6-55 rejt=868) EGFR (BEAKER) (test 24 mL/min/1.73 sq m ESTIMATED GFR IS NOT smya=4691) ACCURATE CREATININE CLEARANCE IN PREDICTING GLOMERULAR FILTRATION RATE. ESTIMATED GFR IS NOT APPLICABLE FOR DIALYSIS PATIENTS. [id number] 05:58:00 Test Item Value Reference Range Comments PHOSPHORUS (BEAKER) (test elbo=089) 2.1 mg/dL 2.3-4.7 [id number] 05:58:00 Test Item Value Reference Range Comments MAGNESIUM (BEAKER) (test omxd=988) 2.3 mg/dL 1.6-2.6 HEPATIC FUNCTION [id number] 05:58:00 Test Item Value Reference Range Comments TOTAL PROTEIN (BEAKER) (test uzig=177) 5.5 gm/dL 6.0-8.3 ALBUMIN (BEAKER) (test czeq=5386) 3.8 g/dL 3.5-5.0 BILIRUBIN TOTAL (BEAKER) (test cxyg=533) 0.9 mg/dL 0.2-1.2 BILIRUBIN DIRECT (BEAKER) (test kaen=010) 0.4 mg/dL 0.1-0.5 ALKALINE PHOSPHATASE (BEAKER) (test hadl=678) 125 U/L 40-150 AST (SGOT) (BEAKER) (test xlmy=117) 111 U/L 5-34 ALT (SGPT) (BEAKER) (test tbku=340) 98 U/L 6-55 CBC W/PLT COUNT & AUTO [id number] 05:29:00 Test Item Value Reference Range Comments WHITE BLOOD CELL COUNT (BEAKER) (test hhbn=437) 5.9 K/ L 3.5-10.5 RED BLOOD CELL COUNT (BEAKER) (test xkfm=641) 3.00 M/ L 3.93-5.22 HEMOGLOBIN (BEAKER) (test ytwl=352) 8.5 GM/DL 11.2-15.7 HEMATOCRIT (BEAKER) (test jmzj=575) 25.3 % 34.1-44.9 MEAN CORPUSCULAR VOLUME (BEAKER) (test jtcr=916) 84.3 fL 79.4-94.8 MEAN CORPUSCULAR HEMOGLOBIN (BEAKER) (test 28.3 pg 25.6-32.2 wdfw=060) MEAN CORPUSCULAR HEMOGLOBIN CONC (BEAKER) (test 33.6 GM/DL 32.2-35.5 gpwf=532) RED CELL DISTRIBUTION WIDTH (BEAKER) (test 14.8 % 11.7-14.4 rjha=972) PLATELET COUNT (BEAKER) (test nkfq=426) 146 K/CU MM 150-450 MEAN PLATELET VOLUME (BEAKER) (test zrqd=444) 10.1 fL 9.4-12.3 NUCLEATED RED BLOOD CELLS (BEAKER) (test 0 /100 WBC 0-0 zizl=438) NEUTROPHILS RELATIVE PERCENT (BEAKER) (test 67 % vydx=855) LYMPHOCYTES RELATIVE PERCENT (BEAKER) (test 16 % gywx=988) MONOCYTES RELATIVE PERCENT (BEAKER) (test 10 % pojt=029) EOSINOPHILS RELATIVE PERCENT (BEAKER) (test 6 % teqv=955) BASOPHILS RELATIVE PERCENT (BEAKER) (test 1 % rexh=544) NEUTROPHILS ABSOLUTE COUNT (BEAKER) (test 3.94 K/ L 1.56-6.13 iaje=174) LYMPHOCYTES ABSOLUTE COUNT (BEAKER) (test 0.96 K/ L 1.18-3.74 iiyv=097) MONOCYTES ABSOLUTE COUNT (BEAKER) (test 0.57 K/ L 0.24-0.36 xnwi=532) EOSINOPHILS ABSOLUTE COUNT (BEAKER) (test 0.37 K/ L 0.04-0.36 iwql=723) BASOPHILS ABSOLUTE COUNT (BEAKER) (test 0.03 K/ L 0.01-0.08 pzqj=474) IMMATURE GRANULOCYTES-RELATIVE PERCENT (BEAKER) 0 % 0-1 (test cocf=4638) POCT-GLUCOSE [id number] 21:01:00 Test Item Value Reference Range Comments POC-GLUCOSE METER (BEAKER) 371 mg/dL 70-110 Notified ALEXI ENNIS/TESTED AT [facility] (test ivbg=2352) [facility] [address] POCT-GLUCOSE [id number] 17:30:00 Test Item Value Reference Range Comments POC-GLUCOSE METER (BEAKER) 389 mg/dL 70-110 TESTED AT [place] [address] [address] (test qvlr=4561) [facility] [address] POCT-GLUCOSE [id number] 08:50:00 Test Item Value Reference Range Comments POC-GLUCOSE METER (BEAKER) 303 mg/dL 70-110 TESTED AT [place] [address] [facility] (test xbcu=0434) [facility] [address] POCT-GLUCOSE [id number] 08:27:00 Test Item Value Reference Range Comments POC-GLUCOSE METER (BEAKER) 342 mg/dL 70-110 Will Repeat Test/TESTED AT (test wucm=3481) [facility] [address] [facility] [address] CALCIUM, [id number] 07:20:00 Test Item Value Reference Range Comments CALCIUM IONIZED (BEAKER) (test jvrr=305) 0.98 mmol/L 1.12-1.27 PH, BLOOD (BEAKER) (test mgdx=1940) 7.41 COMPREHENSIVE METABOLIC [id number] 07:05:00 Test Item Value Reference Range Comments TOTAL PROTEIN (BEAKER) 5.0 gm/dL 6.0-8.3 (test mkmu=154) ALBUMIN (BEAKER) (test 3.3 g/dL 3.5-5.0 vsvi=1664) ALKALINE PHOSPHATASE 126 U/L 40-150 (BEAKER) (test sjcm=916) BILIRUBIN TOTAL (BEAKER) 1.2 mg/dL 0.2-1.2 (test bnvn=306) SODIUM (BEAKER) (test 128 meq/L 136-145 qcoj=176) POTASSIUM (BEAKER) (test 4.1 meq/L 3.5-5.1 qoyz=714) CHLORIDE (BEAKER) (test 98 meq/L 98-107 dcjm=321) CO2 (BEAKER) (test 20 meq/L 22-29 pucn=572) BLOOD UREA NITROGEN 43 mg/dL 7-21 (BEAKER) (test ofar=730) CREATININE (BEAKER) (test 2.39 mg/dL 0.57-1.25 ejlk=339) GLUCOSE RANDOM (BEAKER) 305 mg/dL 70-105 (test ojqg=292) CALCIUM (BEAKER) (test 8.1 mg/dL 8.4-10.2 dqpx=501) AST (SGOT) (BEAKER) (test 173 U/L 5-34 sutr=979) ALT (SGPT) (BEAKER) (test 143 U/L 6-55 gdog=896) EGFR (BEAKER) (test 21 mL/min/1.73 sq m ESTIMATED GFR IS NOT seym=7779) ACCURATE CREATININE CLEARANCE IN PREDICTING GLOMERULAR FILTRATION RATE. ESTIMATED GFR IS NOT APPLICABLE FOR DIALYSIS PATIENTS. [id number] 06:56:00 Test Item Value Reference Range Comments PHOSPHORUS (BEAKER) (test sxlf=201) 2.5 mg/dL 2.3-4.7 [id number] 06:56:00 Test Item Value Reference Range Comments MAGNESIUM (BEAKER) (test dpga=326) 1.9 mg/dL 1.6-2.6 HEPATIC FUNCTION [id number] 06:56:00 Test Item Value Reference Range Comments TOTAL PROTEIN (BEAKER) (test bjzn=181) 5.0 gm/dL 6.0-8.3 ALBUMIN (BEAKER) (test eial=3544) 3.3 g/dL 3.5-5.0 BILIRUBIN TOTAL (BEAKER) (test bgdb=982) 1.2 mg/dL 0.2-1.2 BILIRUBIN DIRECT (BEAKER) (test jeut=636) 0.6 mg/dL 0.1-0.5 ALKALINE PHOSPHATASE (BEAKER) (test bhql=356) 126 U/L 40-150 AST (SGOT) (BEAKER) (test byma=130) 173 U/L 5-34 ALT (SGPT) (BEAKER) (test qwlw=038) 143 U/L 6-55 CBC W/PLT COUNT & AUTO [id number] 06:17:00 Test Item Value Reference Range Comments WHITE BLOOD CELL COUNT (BEAKER) (test izcs=948) 5.7 K/ L 3.5-10.5 RED BLOOD CELL COUNT (BEAKER) (test pdhh=436) 3.40 M/ L 3.93-5.22 HEMOGLOBIN (BEAKER) (test lncl=232) 9.2 GM/DL 11.2-15.7 HEMATOCRIT (BEAKER) (test kdpa=510) 29.1 % 34.1-44.9 MEAN CORPUSCULAR VOLUME (BEAKER) (test thnn=987) 85.6 fL 79.4-94.8 MEAN CORPUSCULAR HEMOGLOBIN (BEAKER) (test 27.1 pg 25.6-32.2 vebw=195) MEAN CORPUSCULAR HEMOGLOBIN CONC (BEAKER) (test 31.6 GM/DL 32.2-35.5 lekj=854) RED CELL DISTRIBUTION WIDTH (BEAKER) (test 14.7 % 11.7-14.4 ovsa=667) PLATELET COUNT (BEAKER) (test wrcw=529) 128 K/CU MM 150-450 MEAN PLATELET VOLUME (BEAKER) (test mxgs=059) 10.3 fL 9.4-12.3 NUCLEATED RED BLOOD CELLS (BEAKER) (test 0 /100 WBC 0-0 zyar=704) NEUTROPHILS RELATIVE PERCENT (BEAKER) (test 69 % xbof=282) LYMPHOCYTES RELATIVE PERCENT (BEAKER) (test 15 % dawk=196) MONOCYTES RELATIVE PERCENT (BEAKER) (test 9 % gouo=021) EOSINOPHILS RELATIVE PERCENT (BEAKER) (test 6 % pzus=484) BASOPHILS RELATIVE PERCENT (BEAKER) (test 1 % fdki=025) NEUTROPHILS ABSOLUTE COUNT (BEAKER) (test 3.91 K/ L 1.56-6.13 kadh=339) LYMPHOCYTES ABSOLUTE COUNT (BEAKER) (test 0.86 K/ L 1.18-3.74 syrf=105) MONOCYTES ABSOLUTE COUNT (BEAKER) (test 0.51 K/ L 0.24-0.36 ebsj=642) EOSINOPHILS ABSOLUTE COUNT (BEAKER) (test 0.35 K/ L 0.04-0.36 fwja=467) BASOPHILS ABSOLUTE COUNT (BEAKER) (test 0.03 K/ L 0.01-0.08 ixjx=197) IMMATURE GRANULOCYTES-RELATIVE PERCENT (BEAKER) 0 % 0-1 (test dbdl=3541) BODY FLUID CELL COUNT WITH [id number] 17:06:00 Test Item Value Reference Range Comments APPEARANCE FLUID (BEAKER) (test khdl=683) Hazy Clear COLOR FLUID (BEAKER) (test vcvj=801) Yellow Colorless, Straw RBC FLUID (BEAKER) (test dvqf=841) 6000 /cu mm <=1 ADJUSTED WBC FLUID (BEAKER) (test aeyl=6709) 125 /cu mm <=5 LINING CELLS (BEAKER) (test vynn=2252) 2 /cu mm <=1 NEUTROPHILS FLUID (BEAKER) (test fkwf=5448) 6 % LYMPHS FLUID (BEAKER) (test xujx=096) 21 % MONO/MACROPHAGE FLUID (BEAKER) (test cxaq=671) 73 % EOSINOPHILS FLUID (BEAKER) (test gnpv=540) 0 % BASO FLUID (BEAKER) (test zwdv=389) 0 % CONTAINER BODY FLUID (BEAKER) (test awux=7594) EDTA Tube POCT-GLUCOSE [id number] 16:40:00 Test Item Value Reference Range Comments POC-GLUCOSE METER (BEAKER) 396 mg/dL 70-110 TESTED AT [facility] [address] (test kbuw=1718) [facility] [address] U/S, [id number] 16:12:00limit to 6 LReason for exam:->ascites, limit to 6 LFINAL REPORT Paracentesis dated 02/22/2019 Procedure: Ultrasound-guided paracentesis. Preprocedure diagnosis: Ascites Postprocedure diagnosis: Ascites Conscious sedation: None. Radiologist: Giovanni Haas M.D. Mechanical Design Engineer: None Anesthesia: 1% Xylocaine mixed with sodium bicarbonate local anesthesia. Technique: After obtaining informed consent, ultrasound-guided paracentesis was performed under usual sterile technique. Using a 5 ethiopian drainage catheter, puncture was made in the right lower quadrant abdomen. Approximately 6000 cc of serous fluid was removed. Patient tolerated the procedure well without complication. Complication: None Graft/ Implant: None Estimated Blood Loss: None Impression: Ultrasound-guided paracentesis. Signed: Giovanni Haas Verified Date/Time: 02/22/2019 16:12 :23 Reading Location: [facility] C013Y CT Body Reading Room RAD, CHEST, 1 VIEW, NON [id number] 12:22:00Reason for exam:->coughShould this be performed at the bedside?->YesFINAL REPORT INDICATION: cough COMPARISON:None. TECHNIQUE: Chest radiograph, single view, portable technique. FINDINGS / IMPRESSION: No pneumonia is demonstrated. There is markedelevation of the right hemidiaphragm. Heart shadow is prominent which may be related to portable technique. No pneumothorax or pleural effusion is demonstrated. Osseous structures unremarkable. Signed:Donnie Carrera Verified Date/ Time: 02/22/2019 12:22:24 Reading Location: [facility] C013W Consult Reading Room POCT-GLUCOSE [id number] 07:55:00 Test Item Value Reference Range Comments POC-GLUCOSE METER (BEAKER) 317 mg/dL 70-110 TESTED AT [address] (test obde=1917) [facility] [address] POCT-GLUCOSE [id number] 07:24:00 Test Item Value Reference Range Comments POC-GLUCOSE METER (BEAKER) 386 mg/dL 70-110 Notified ALEXI ENNIS/TESTED AT [facility] (test qnjs=0790) [address] [place] [address] POCT-GLUCOSE [id number] 07:24:00 Test Item Value Reference Range Comments POC-GLUCOSE METER (BEAKER) 295 mg/dL 70-110 TESTED AT [address] (test pcvo=6079) [facility] [address] POCT-GLUCOSE [id number] 07:24:00 Test Item Value Reference Range Comments POC-GLUCOSE METER (BEAKER) 256 mg/dL 70-110 TESTED AT [address] (test ecue=4919) [place] [id number] BASIC METABOLIC [id number] 06:50:00 Test Item Value Reference Range Comments SODIUM (BEAKER) (test 128 meq/L 136-145 lazf=660) POTASSIUM (BEAKER) (test 4.0 meq/L 3.5-5.1 ykbj=034) CHLORIDE (BEAKER) (test 100 meq/L 98-107 yroc=670) CO2 (BEAKER) (test 21 meq/L 22-29 kgbg=707) BLOOD UREA NITROGEN 40 mg/dL 7-21 (BEAKER) (test ikzv=705) CREATININE (BEAKER) (test 2.62 mg/dL 0.57-1.25 lhsp=278) GLUCOSE RANDOM (BEAKER) 351 mg/dL 70-105 (test ftzw=980) CALCIUM (BEAKER) (test 8.0 mg/dL 8.4-10.2 npic=402) EGFR (BEAKER) (test 19 mL/min/1.73 sq m ESTIMATED GFR IS NOT fspi=0543) ACCURATE CREATININE CLEARANCE IN PREDICTING GLOMERULAR FILTRATION RATE. ESTIMATED GFR IS NOT APPLICABLE FOR DIALYSIS PATIENTS. [id number] 06:46:00 Test Item Value Reference Range Comments MAGNESIUM (BEAKER) (test sjxr=640) 1.9 mg/dL 1.6-2.6 BLOOD [id number] 20:01:00 Test Item Value Reference Range Comments CULTURE (BEAKER) (test woyy=8245) No growth in 5 days BLOOD [id number] 20:01:00 Test Item Value Reference Range Comments CULTURE (BEAKER) (test nkio=2378) No growth in 5 days POCT-GLUCOSE [id number] 08:39:00 Test Item Value Reference Range Comments POC-GLUCOSE METER (BEAKER) 300 mg/dL 70-110 TESTED AT [facility] [address] (test gggc=5189) [facility] [address] POCT-GLUCOSE [id number] 08:39:00 Test Item Value Reference Range Comments POC-GLUCOSE METER (BEAKER) 330 mg/dL 70-110 Notified ALEXI ENNIS/TESTED AT [facility] (test kdym=0499) [address] [facility] [address] COMPREHENSIVE METABOLIC [id number] 08:25:00 Test Item Value Reference Range Comments TOTAL PROTEIN (BEAKER) 4.9 gm/dL 6.0-8.3 (test dgne=938) ALBUMIN (BEAKER) (test 3.3 g/dL 3.5-5.0 stnn=2573) ALKALINE PHOSPHATASE 129 U/L 40-150 (BEAKER) (test xxcm=353) BILIRUBIN TOTAL (BEAKER) 1.2 mg/dL 0.2-1.2 (test nwls=952) SODIUM (BEAKER) (test 130 meq/L 136-145 glud=279) POTASSIUM (BEAKER) (test 4.5 meq/L 3.5-5.1 ejbv=110) CHLORIDE (BEAKER) (test 102 meq/L 98-107 zdvy=688) CO2 (BEAKER) (test 20 meq/L 22-29 nluz=805) BLOOD UREA NITROGEN 32 mg/dL 7-21 (BEAKER) (test btmg=282) CREATININE (BEAKER) (test 2.28 mg/dL 0.57-1.25 tyim=402) GLUCOSE RANDOM (BEAKER) 341 mg/dL 70-105 (test zhkq=736) CALCIUM (BEAKER) (test 8.1 mg/dL 8.4-10.2 dbes=662) AST (SGOT) (BEAKER) (test 851 U/L 5-34 nsbg=140) ALT (SGPT) (BEAKER) (test 345 U/L 6-55 nssv=284) EGFR (BEAKER) (test 22 mL/min/1.73 sq m ESTIMATED GFR IS NOT grqu=9959) ACCURATE CREATININE CLEARANCE IN PREDICTING GLOMERULAR FILTRATION RATE. ESTIMATED GFR IS NOT APPLICABLE FOR DIALYSIS PATIENTS. [id number] 08:19:00 Test Item Value Reference Range Comments PHOSPHORUS (BEAKER) (test nlod=124) 2.3 mg/dL 2.3-4.7 [id number] 08:19:00 Test Item Value Reference Range Comments MAGNESIUM (BEAKER) (test qcqe=635) 1.9 mg/dL 1.6-2.6 CALCIUM, [id number] 07:20:00 Test Item Value Reference Range Comments CALCIUM IONIZED (BEAKER) (test dgnq=063) 0.98 mmol/L 1.12-1.27 PH, BLOOD (BEAKER) (test jmba=7545) 7.42 CBC W/PLT COUNT & AUTO [id number] 06:36:00 Test Item Value Reference Range Comments WHITE BLOOD CELL COUNT (BEAKER) (test uqrj=766) 8.1 K/ L 3.5-10.5 RED BLOOD CELL COUNT (BEAKER) (test wtaj=789) 3.43 M/ L 3.93-5.22 HEMOGLOBIN (BEAKER) (test ednc=110) 9.2 GM/DL 11.2-15.7 HEMATOCRIT (BEAKER) (test wzxw=539) 29.3 % 34.1-44.9 MEAN CORPUSCULAR VOLUME (BEAKER) (test fgej=273) 85.4 fL 79.4-94.8 MEAN CORPUSCULAR HEMOGLOBIN (BEAKER) (test 26.8 pg 25.6-32.2 evjy=275) MEAN CORPUSCULAR HEMOGLOBIN CONC (BEAKER) (test 31.4 GM/DL 32.2-35.5 rtyh=227) RED CELL DISTRIBUTION WIDTH (BEAKER) (test 14.6 % 11.7-14.4 qlbn=744) PLATELET COUNT (BEAKER) (test uxnj=975) 132 K/CU MM 150-450 MEAN PLATELET VOLUME (BEAKER) (test vnnz=625) 9.3 fL 9.4-12.3 NUCLEATED RED BLOOD CELLS (BEAKER) (test 0 /100 WBC 0-0 tenb=220) NEUTROPHILS RELATIVE PERCENT (BEAKER) (test 77 % rshv=356) LYMPHOCYTES RELATIVE PERCENT (BEAKER) (test 13 % skpj=404) MONOCYTES RELATIVE PERCENT (BEAKER) (test 8 % kwyh=549) EOSINOPHILS RELATIVE PERCENT (BEAKER) (test 2 % lqlq=810) BASOPHILS RELATIVE PERCENT (BEAKER) (test 1 % carz=257) NEUTROPHILS ABSOLUTE COUNT (BEAKER) (test 6.17 K/ L 1.56-6.13 mqvp=076) LYMPHOCYTES ABSOLUTE COUNT (BEAKER) (test 1.02 K/ L 1.18-3.74 vhzu=559) MONOCYTES ABSOLUTE COUNT (BEAKER) (test 0.61 K/ L 0.24-0.36 brae=639) EOSINOPHILS ABSOLUTE COUNT (BEAKER) (test 0.18 K/ L 0.04-0.36 tnfs=718) BASOPHILS ABSOLUTE COUNT (BEAKER) (test 0.05 K/ L 0.01-0.08 tyec=607) IMMATURE GRANULOCYTES-RELATIVE PERCENT (BEAKER) 1 % 0-1 (test zlho=1624) BASIC METABOLIC [id number] 19:24:00 Test Item Value Reference Range Comments SODIUM (BEAKER) (test 132 meq/L 136-145 yipc=531) POTASSIUM (BEAKER) (test 4.8 meq/L 3.5-5.1 cvso=715) CHLORIDE (BEAKER) (test 103 meq/L 98-107 umoo=669) CO2 (BEAKER) (test 20 meq/L 22-29 ruuj=811) BLOOD UREA NITROGEN 30 mg/dL 7-21 (BEAKER) (test ddju=688) CREATININE (BEAKER) (test 1.85 mg/dL 0.57-1.25 wkjx=639) GLUCOSE RANDOM (BEAKER) 297 mg/dL 70-105 (test tkrx=524) CALCIUM (BEAKER) (test 8.7 mg/dL 8.4-10.2 rfet=039) EGFR (BEAKER) (test 28 mL/min/1.73 sq m ESTIMATED GFR IS NOT xpou=2772) ACCURATE CREATININE CLEARANCE IN PREDICTING GLOMERULAR FILTRATION RATE. ESTIMATED GFR IS NOT APPLICABLE FOR DIALYSIS PATIENTS. Please draw 4 hours after [address]. Page Dr. Quiroz at [phone] with results.Call [phone] 19:22:00 Test Item Value Reference Range Comments SODIUM (BEAKER) (test gkdz=809) 132 meq/L 136-145 POTASSIUM (BEAKER) (test cnvz=655) 4.8 meq/L 3.5-5.1 CHLORIDE (BEAKER) (test adko=451) 103 meq/L 98-107 CO2 (BEAKER) (test roms=395) 20 meq/L 22-29 Please draw 4 hours after SPS. Page Dr. Quiroz at [phone] with results.Call [id number] 18:11:00 Test Item Value Reference Range Comments POC-GLUCOSE METER (BEAKER) 314 mg/dL 70-110 TESTED AT [address] (test mcwk=9837) [place] [address] POCT-GLUCOSE [id number] 17:29:00 Test Item Value Reference Range Comments POC-GLUCOSE METER (BEAKER) 255 mg/dL 70-110 TESTED AT [address] (test qgar=8721) [place] [id number] POCT-GLUCOSE [id number] 13:02:00 Test Item Value Reference Range Comments POC-GLUCOSE METER (BEAKER) 289 mg/dL 70-110 TESTED AT [address] (test scah=1942) [place] [address] BODY FLUID CULTURE + GRAM [id number] 12:08:00 Test Item Value Reference Range Comments CULTURE (BEAKER) (test meou=2857) No growth GRAM STAIN RESULT (BEAKER) (test <1+ WBCs skry=6939) GRAM STAIN RESULT (BEAKER) (test No organisms seen zyus=38957) SEAMUS [id number] 09:29:00Reason for exam:->cirrhosis/ portal hypertension , refractory ascitesFINAL REPORT Procedure: TIPS, paracentesis HISTORY: Intractable ascites [...] passes were then made using a coaxial 16-gauge/21- gauge needle from the right hepatic vein towards [...] and the system was then placed back intothe right hepatic vein with introduction of a 21-gauge needle across the liver into the right portalvein. Guidewire was then advanced centrally followed by introduction of a small catheter. The tract was then dilated with a 5 mm balloon catheter and a bleeding placement of a 10 Bulgarian sheath from theright hepatic vein to the portal vein. Repeat portography was performed and pressures were obtained disclosing a 18 mm portosystemic gradient. A Viatorr 8 cm in length shunt was then introduced and dilated to 8 mm. Post stent placement /balloon dilatation pressures discloses a persistent gradient of approximately 12 mmHg. The tips was then dilated further with a 9 mm balloon. Post balloon dilatation pressure measurements disclosed a final portosystemic gradient of 9 mmHg. The catheters were removed and hemostasis tube. Limited paracentesis was performed yielding 1 L of yellow fluid. The 5 Bulgarian needle/catheter was inserted with real-time ultrasound guidance into the peritoneal cavity in the right lateral abdomen following sterile preparation. Following this, the sheath catheter was removed. CONCLUSION: Successful TIPS and paracentesis. Signed: Yulia Kaba MDReport Verified Date/Time: 02/20/2019 09:29:18 Reading Location : [address] Body Reading Room CALCIUM, [id number] 06:43:00 Test Item Value Reference Range Comments CALCIUM IONIZED (BEAKER) (test kwea=651) 1.02 mmol/L 1.12-1.27 PH, BLOOD (BEAKER) (test nkig=3069) 7.40 [id number] 06:12:00 Test Item Value Reference Range Comments PHOSPHORUS (BEAKER) (test gtyv=796) 2.5 mg/dL 2.3-4.7 [id number] 06:12:00 Test Item Value Reference Range Comments MAGNESIUM (BEAKER) (test wxwn=460) 1.6 mg/dL 1.6-2.6 HEPATIC FUNCTION [id number] 06:12:00 Test Item Value Reference Range Comments TOTAL PROTEIN (BEAKER) (test dsnd=002) 5.3 gm/dL 6.0-8.3 ALBUMIN (BEAKER) (test mlcs=2562) 3.6 g/dL 3.5-5.0 BILIRUBIN TOTAL (BEAKER) (test iapq=407) 1.2 mg/dL 0.2-1.2 BILIRUBIN DIRECT (BEAKER) (test xzry=688) 0.6 mg/dL 0.1-0.5 ALKALINE PHOSPHATASE (BEAKER) (test fetl=184) 80 U/L 40-150 AST (SGOT) (BEAKER) (test xtdm=407) 99 U/L 5-34 ALT (SGPT) (BEAKER) (test phcj=506) 52 U/L 6-55 COMPREHENSIVE METABOLIC [id number] 06:12:00 Test Item Value Reference Range Comments TOTAL PROTEIN (BEAKER) 5.3 gm/dL 6.0-8.3 (test bdvy=676) ALBUMIN (BEAKER) (test 3.6 g/dL 3.5-5.0 invi=4279) ALKALINE PHOSPHATASE 80 U/L 40-150 (BEAKER) (test naay=700) BILIRUBIN TOTAL (BEAKER) 1.2 mg/dL 0.2-1.2 (test yebg=368) SODIUM (BEAKER) (test 133 meq/L 136-145 lfpe=379) POTASSIUM (BEAKER) (test 5.4 meq/L 3.5-5.1 ojxp=239) CHLORIDE (BEAKER) (test 104 meq/L 98-107 ruqr=203) CO2 (BEAKER) (test 22 meq/L 22-29 utqd=903) BLOOD UREA NITROGEN 27 mg/dL 7-21 (BEAKER) (test ccsl=153) CREATININE (BEAKER) (test 1.58 mg/dL 0.57-1.25 ltsm=315) GLUCOSE RANDOM (BEAKER) 300 mg/dL 70-105 (test xfvh=449) CALCIUM (BEAKER) (test 8.4 mg/dL 8.4-10.2 ekgb=220) AST (SGOT) (BEAKER) (test 99 U/L 5-34 iler=351) ALT (SGPT) (BEAKER) (test 52 U/L 6-55 bsgj=007) EGFR (BEAKER) (test 33 mL/min/1.73 sq m ESTIMATED GFR IS NOT arez=4243) ACCURATE CREATININE CLEARANCE IN PREDICTING GLOMERULAR FILTRATION RATE. ESTIMATED GFR IS NOT APPLICABLE FOR DIALYSIS PATIENTS. PROTHROMBIN [id number] 05:57:00 Test Item Value Reference Range Comments PROTIME (BEAKER) (test tgty=693) 16.4 seconds 11.7-14.7 INR (BEAKER) (test chol=476) 1.3 <=5.9 RECOMMENDED COUMADIN/WARFARIN INR THERAPY RANGESSTANDARD DOSE: 2.0 - 3.0 Includes: PROPHYLAXIS forvenous thrombosis, systemic embolization; TREATMENT for venous thrombosis and/or pulmonary embolus.HIGH RISK: Target INR is 2.5-3.5 for patients with mechanical heart valves.CBC W/PLT COUNT & AUTO [id number] 05:54:00 Test Item Value Reference Range Comments WHITE BLOOD CELL COUNT (BEAKER) (test pexu=080) 7.9 K/ L 3.5-10.5 RED BLOOD CELL COUNT (BEAKER) (test libq=900) 3.24 M/ L 3.93-5.22 HEMOGLOBIN (BEAKER) (test cyyl=761) 8.9 GM/DL 11.2-15.7 HEMATOCRIT (BEAKER) (test idme=658) 28.0 % 34.1-44.9 MEAN CORPUSCULAR VOLUME (BEAKER) (test tfry=845) 86.4 fL 79.4-94.8 MEAN CORPUSCULAR HEMOGLOBIN (BEAKER) (test 27.5 pg 25.6-32.2 yjxp=094) MEAN CORPUSCULAR HEMOGLOBIN CONC (BEAKER) (test 31.8 GM/DL 32.2-35.5 tjyx=216) RED CELL DISTRIBUTION WIDTH (BEAKER) (test 14.4 % 11.7-14.4 swhd=556) PLATELET COUNT (BEAKER) (test fnnf=905) 132 K/CU MM 150-450 MEAN PLATELET VOLUME (BEAKER) (test lyla=869) 9.3 fL 9.4-12.3 NUCLEATED RED BLOOD CELLS (BEAKER) (test 0 /100 WBC 0-0 beyp=489) NEUTROPHILS RELATIVE PERCENT (BEAKER) (test 83 % sftw=548) LYMPHOCYTES RELATIVE PERCENT (BEAKER) (test 10 % yrwe=414) MONOCYTES RELATIVE PERCENT (BEAKER) (test 7 % zdmf=063) EOSINOPHILS RELATIVE PERCENT (BEAKER) (test 0 % thnz=899) BASOPHILS RELATIVE PERCENT (BEAKER) (test 0 % dhue=081) NEUTROPHILS ABSOLUTE COUNT (BEAKER) (test 6.55 K/ L 1.56-6.13 yvsx=367) LYMPHOCYTES ABSOLUTE COUNT (BEAKER) (test 0.77 K/ L 1.18-3.74 oxex=144) MONOCYTES ABSOLUTE COUNT (BEAKER) (test 0.55 K/ L 0.24-0.36 juqn=822) EOSINOPHILS ABSOLUTE COUNT (BEAKER) (test 0.00 K/ L 0.04-0.36 jjus=610) BASOPHILS ABSOLUTE COUNT (BEAKER) (test 0.02 K/ L 0.01-0.08 stef=663) IMMATURE GRANULOCYTES-RELATIVE PERCENT (BEAKER) 0 % 0-1 (test etwm=9326) POCT-GLUCOSE [id number] 19:01:00 Test Item Value Reference Range Comments POC-GLUCOSE METER (BEAKER) 301 mg/dL 70-110 TESTED AT [facility] [address] (test lmke=2679) [facility] [address] CT, ABDOMEN, WITHOUT [id number] 12:33:00FINAL REPORT ABDOMINAL CT DATED 02/19/2019 CLINICAL INFORMATION: Cirrhosis or Fatty Liverpatient needs to have transjugular intrahepatic portosystemic shunt [...] x 5 x 12.6 cm. Pancreas and adrenalsare unremarkable. Both kidneys are normal in size. No hydronephrosis, hydroureter, urolithiasis isseen. The small and large bowel are suboptimally evaluated without GI and intravenous contrast. No small or large bowel dilatation is seen. Appendix is not visualized. Small to moderate ascites is present. IMPRESSION: 1. Cirrhosis with splenomegaly.2. Ascites. Signed: Giovanni Haaseport Verified Date/Time: 02/19/2019 12:33:54 Reading Location: [address] Body Reading Room Electronicallysigned by: GIOVANNI HAAS M.D. on 02/19/2019 12:33 PMBODY FLUID CULTURE + GRAM [id number] 12:08:00 Test Item Value Reference Range Comments CULTURE (BEAKER) (test nzgo=5475) No growth GRAM STAIN RESULT (BEAKER) (test <1+ WBCs ejjk=5127) GRAM STAIN RESULT (BEAKER) (test No organisms seen wwos=01474) POCT-GLUCOSE [id number] 09:38:00 Test Item Value Reference Range Comments POC-GLUCOSE METER (BEAKER) 274 mg/dL 70-110 TESTED AT [address] (test scpp=9550) [facility] [address] CALCIUM, [id number] 06:56:00 Test Item Value Reference Range Comments CALCIUM IONIZED (BEAKER) (test bbky=748) 1.05 mmol/L 1.12-1.27 PH, BLOOD (BEAKER) (test gfyi=3313) 7.40 [id number] 06:22:00 Test Item Value Reference Range Comments PHOSPHORUS (BEAKER) (test wxzu=626) 2.3 mg/dL 2.3-4.7 [id number] 06:22:00 Test Item Value Reference Range Comments MAGNESIUM (BEAKER) (test emhz=056) 1.7 mg/dL 1.6-2.6 HEPATIC FUNCTION [id number] 06:22:00 Test Item Value Reference Range Comments TOTAL PROTEIN (BEAKER) (test mcoh=904) 5.6 gm/dL 6.0-8.3 ALBUMIN (BEAKER) (test byao=1355) 3.4 g/dL 3.5-5.0 BILIRUBIN TOTAL (BEAKER) (test rdmr=893) 0.9 mg/dL 0.2-1.2 BILIRUBIN DIRECT (BEAKER) (test osku=769) 0.4 mg/dL 0.1-0.5 ALKALINE PHOSPHATASE (BEAKER) (test zkzf=182) 121 U/L 40-150 AST (SGOT) (BEAKER) (test tpln=685) 28 U/L 5-34 ALT (SGPT) (BEAKER) (test bqmz=866) 12 U/L 6-55 COMPREHENSIVE METABOLIC [id number] 06:22:00 Test Item Value Reference Range Comments TOTAL PROTEIN (BEAKER) 5.6 gm/dL 6.0-8.3 (test iadj=048) ALBUMIN (BEAKER) (test 3.4 g/dL 3.5-5.0 skre=0183) ALKALINE PHOSPHATASE 121 U/L 40-150 (BEAKER) (test ebba=134) BILIRUBIN TOTAL (BEAKER) 0.9 mg/dL 0.2-1.2 (test byzl=311) SODIUM (BEAKER) (test 135 meq/L 136-145 ixwl=080) POTASSIUM (BEAKER) (test 4.5 meq/L 3.5-5.1 eapg=119) CHLORIDE (BEAKER) (test 105 meq/L 98-107 otlg=982) CO2 (BEAKER) (test 22 meq/L 22-29 awrb=232) BLOOD UREA NITROGEN 29 mg/dL 7-21 (BEAKER) (test jxak=513) CREATININE (BEAKER) (test 1.38 mg/dL 0.57-1.25 vgqs=638) GLUCOSE RANDOM (BEAKER) 313 mg/dL 70-105 (test tavu=105) CALCIUM (BEAKER) (test 8.7 mg/dL 8.4-10.2 lxvg=763) AST (SGOT) (BEAKER) (test 28 U/L 5-34 bdsi=058) ALT (SGPT) (BEAKER) (test 12 U/L 6-55 sxyj=840) EGFR (BEAKER) (test 39 mL/min/1.73 sq m ESTIMATED GFR IS NOT bptd=1292) ACCURATE CREATININE CLEARANCE IN PREDICTING GLOMERULAR FILTRATION RATE. ESTIMATED GFR IS NOT APPLICABLE FOR DIALYSIS PATIENTS. PROTHROMBIN [id number] 06:15:00 Test Item Value Reference Range Comments PROTIME (BEAKER) (test iqxy=813) 14.0 seconds 11.7-14.7 INR (BEAKER) (test cbqb=803) 1.1 <=5.9 RECOMMENDED COUMADIN/WARFARIN INR THERAPY RANGESSTANDARD DOSE: 2.0 - 3.0 Includes: PROPHYLAXIS forvenous thrombosis, systemic embolization; TREATMENT for venous thrombosis and/or pulmonary embolus.HIGH RISK: Target INR is 2.5-3.5 for patients with mechanical heart valves.CBC W/PLT COUNT & AUTO [id number] 05:57:00 Test Item Value Reference Range Comments WHITE BLOOD CELL COUNT (BEAKER) (test rghv=645) 6.9 K/ L 3.5-10.5 RED BLOOD CELL COUNT (BEAKER) (test zydg=510) 3.83 M/ L 3.93-5.22 HEMOGLOBIN (BEAKER) (test zvoc=397) 10.5 GM/DL 11.2-15.7 HEMATOCRIT (BEAKER) (test nhhz=954) 33.1 % 34.1-44.9 MEAN CORPUSCULAR VOLUME (BEAKER) (test kfqk=870) 86.4 fL 79.4-94.8 MEAN CORPUSCULAR HEMOGLOBIN (BEAKER) (test 27.4 pg 25.6-32.2 cmjn=627) MEAN CORPUSCULAR HEMOGLOBIN CONC (BEAKER) (test 31.7 GM/DL 32.2-35.5 ujbt=215) RED CELL DISTRIBUTION WIDTH (BEAKER) (test 14.4 % 11.7-14.4 vftz=647) PLATELET COUNT (BEAKER) (test oibc=211) 175 K/CU MM 150-450 MEAN PLATELET VOLUME (BEAKER) (test sztt=280) 9.9 fL 9.4-12.3 NUCLEATED RED BLOOD CELLS (BEAKER) (test 0 /100 WBC 0-0 clbi=261) NEUTROPHILS RELATIVE PERCENT (BEAKER) (test 73 % bpix=669) LYMPHOCYTES RELATIVE PERCENT (BEAKER) (test 16 % smbv=379) MONOCYTES RELATIVE PERCENT (BEAKER) (test 7 % goos=461) EOSINOPHILS RELATIVE PERCENT (BEAKER) (test 4 % dxyv=722) BASOPHILS RELATIVE PERCENT (BEAKER) (test 1 % btmi=755) NEUTROPHILS ABSOLUTE COUNT (BEAKER) (test 4.99 K/ L 1.56-6.13 dbpg=029) LYMPHOCYTES ABSOLUTE COUNT (BEAKER) (test 1.09 K/ L 1.18-3.74 tzrd=109) MONOCYTES ABSOLUTE COUNT (BEAKER) (test 0.50 K/ L 0.24-0.36 bzpr=013) EOSINOPHILS ABSOLUTE COUNT (BEAKER) (test 0.25 K/ L 0.04-0.36 igkp=545) BASOPHILS ABSOLUTE COUNT (BEAKER) (test 0.04 K/ L 0.01-0.08 jknq=816) IMMATURE GRANULOCYTES-RELATIVE PERCENT (BEAKER) 0 % 0-1 (test tvyf=2553) POCT-GLUCOSE [id number] 23:05:00 Test Item Value Reference Range Comments POC-GLUCOSE METER (BEAKER) 412 mg/dL 70-110 Will Repeat Test/TESTED AT (test bauj=8778) [address] [address] POCT-GLUCOSE [id number] 22:12:00 Test Item Value Reference Range Comments POC-GLUCOSE METER (BEAKER) 371 mg/dL 70-110 TESTED AT [address] (test thje=9549) [facility] [address] BODY FLUID CELL COUNT WITH [id number] 13:06:00 Test Item Value Reference Range Comments APPEARANCE FLUID (BEAKER) (test muew=457) Slightly Hazy Clear COLOR FLUID (BEAKER) (test pcnh=623) Yellow Colorless, Straw RBC FLUID (BEAKER) (test adce=600) 252 /cu mm <=1 ADJUSTED WBC FLUID (BEAKER) (test aekj=7775) 112 /cu mm <=5 LINING CELLS (BEAKER) (test kppk=8448) 10 /cu mm <=1 NEUTROPHILS FLUID (BEAKER) (test groq=4452) 8 % LYMPHS FLUID (BEAKER) (test tswg=537) 40 % MONO/MACROPHAGE FLUID (BEAKER) (test 43 % phvu=212) EOSINOPHILS FLUID (BEAKER) (test okcc=261) 0 % BASO FLUID (BEAKER) (test xfpa=809) 0 % CONTAINER BODY FLUID (BEAKER) (test EDTA Tube pmre=8510) U/S, [id number] 10:21:00Limit 8 LReason for exam:->ascites, limit 8 LFINAL REPORT HISTORY : Ascites Operators: SARIKA Lee MD Technique/findings:Informed written consent was obtained. Discussion of risks, benefits, and alternatives were made with the patient. The patient expressed understanding and agreed to proceed. A universal timeout was performed prior to starting the procedure. Initial ultrasound images demonstrate large volume of ascites. A pocket of fluid was identified in the right lower quadrant of the abdomen. This area was marked. The area was prepped and draped in the usual sterile fashion. 1% lidocaine was applied to the skin and deep soft tissues. A 5 Bulgarian one-step catheter was inserted and removed from the peritoneal space and approximately 8.0 liters of clear yellow fluid was aspirated from the abdomen. There were no immediate complications. Impression: Successful ultrasound guided paracentesis with aspiration of 8.0 liters of fluid. Signed: Akil Chung MDReport Verified Date/ Time: 02/18/2019 10:21:08 Reading Location: [address] Ultrasound Reading Room [id number] 07:08:00 Test Item Value Reference Range Comments MAGNESIUM (BEAKER) (test svnx=207) 1.7 mg/dL 1.6-2.6 HEPATIC FUNCTION [id number] 07:08:00 Test Item Value Reference Range Comments TOTAL PROTEIN (BEAKER) (test ijhw=486) 5.4 gm/dL 6.0-8.3 ALBUMIN (BEAKER) (test oqhj=5343) 3.2 g/dL 3.5-5.0 BILIRUBIN TOTAL (BEAKER) (test iind=883) 0.8 mg/dL 0.2-1.2 BILIRUBIN DIRECT (BEAKER) (test ccus=745) 0.4 mg/dL 0.1-0.5 ALKALINE PHOSPHATASE (BEAKER) (test lrdn=079) 104 U/L 40-150 AST (SGOT) (BEAKER) (test bbxd=623) 20 U/L 5-34 ALT (SGPT) (BEAKER) (test gjhj=396) 10 U/L 6-55 COMPREHENSIVE METABOLIC [id number] 07:08:00 Test Item Value Reference Range Comments TOTAL PROTEIN (BEAKER) 5.4 gm/dL 6.0-8.3 (test yfkm=801) ALBUMIN (BEAKER) (test 3.2 g/dL 3.5-5.0 zogl=3844) ALKALINE PHOSPHATASE 104 U/L 40-150 (BEAKER) (test fuvg=630) BILIRUBIN TOTAL (BEAKER) 0.8 mg/dL 0.2-1.2 (test xcta=982) SODIUM (BEAKER) (test 136 meq/L 136-145 jcvz=308) POTASSIUM (BEAKER) (test 4.3 meq/L 3.5-5.1 eyxm=210) CHLORIDE (BEAKER) (test 108 meq/L 98-107 cevz=865) CO2 (BEAKER) (test 22 meq/L 22-29 ilmc=915) BLOOD UREA NITROGEN 31 mg/dL 7-21 (BEAKER) (test pnrh=701) CREATININE (BEAKER) (test 1.26 mg/dL 0.57-1.25 pvqg=536) GLUCOSE RANDOM (BEAKER) 262 mg/dL 70-105 (test eejf=378) CALCIUM (BEAKER) (test 8.5 mg/dL 8.4-10.2 dsnq=083) AST (SGOT) (BEAKER) (test 20 U/L 5-34 tyzm=792) ALT (SGPT) (BEAKER) (test 10 U/L 6-55 lmdk=827) EGFR (BEAKER) (test 43 mL/min/1.73 sq m ESTIMATED GFR IS NOT nsgu=2293) ACCURATE CREATININE CLEARANCE IN PREDICTING GLOMERULAR FILTRATION RATE. ESTIMATED GFR IS NOT APPLICABLE FOR DIALYSIS PATIENTS. [id number] 07:07:00 Test Item Value Reference Range Comments PHOSPHORUS (BEAKER) (test izjk=992) 2.7 mg/dL 2.3-4.7 POCT-GLUCOSE [id number] 06:31:00 Test Item Value Reference Range Comments POC-GLUCOSE METER (BEAKER) 249 mg/dL 70-110 TESTED AT [facility] [address] [facility] (test dvcn=0541) [facility] [address] URINALYSIS W/ [id number] 06:17:00 Test Item Value Reference Range Comments COLOR (BEAKER) (test gczc=436) Yellow CLARITY (BEAKER) (test ehtf=845) Clear SPECIFIC GRAVITY UA (BEAKER) (test iood=212) 1.013 1.001-1.035 PH UA (BEAKER) (test uzxk=021) 5.0 5.0-8.0 PROTEIN UA (BEAKER) (test bpae=006) Negative Negative GLUCOSE UA (BEAKER) (test gwxj=156) 100 mg/dL Negative KETONES UA (BEAKER) (test hblv=730) Negative Negative BILIRUBIN UA (BEAKER) (test molr=844) Negative Negative BLOOD UA (BEAKER) (test ahra=231) Negative Negative NITRITE UA (BEAKER) (test cbwr=061) Negative Negative LEUKOCYTE ESTERASE UA (BEAKER) (test kvli=236) Large Negative UROBILINOGEN UA (BEAKER) (test fyod=052) 0.2 mg/dL 0.2-1.0 RBC UA (BEAKER) (test inpc=662) 2 /HPF WBC UA (BEAKER) (test wvod=764) 24 /HPF SQUAMOUS EPITHELIAL (BEAKER) (test eieb=113) 14 /HPF HYALINE CASTS (BEAKER) (test tolf=446) 3 /LPF SOURCE(BEAKER) (test noqn=2745) Urine, Voided [id number] 05:53:00 Test Item Value Reference Range Comments PARTIAL THROMBOPLASTIN TIME (BEAKER) (test 20.1 seconds 22.5-36.0 sioh=937) CALCIUM, [id number] 05:50:00 Test Item Value Reference Range Comments CALCIUM IONIZED (BEAKER) (test nghf=711) 1.00 mmol/L 1.12-1.27 PH, BLOOD (BEAKER) (test tpzc=6681) 7.43 PROTHROMBIN [id number] 04:54:00 Test Item Value Reference Range Comments PROTIME (BEAKER) (test ucix=384) 13.8 seconds 11.7-14.7 INR (BEAKER) (test clos=096) 1.0 <=5.9 RECOMMENDED COUMADIN/WARFARIN INR THERAPY RANGESSTANDARD DOSE: 2.0 - 3.0 Includes: PROPHYLAXIS forvenous thrombosis, systemic embolization; TREATMENT for venous thrombosis and/or pulmonary embolus.HIGH RISK: Target INR is 2.5-3.5 for patients with mechanical heart valves.CREATININE, RANDOM [id number] 04: 48:00 Test Item Value Reference Range Comments CREATININE URINE (BEAKER) (test xdvm=443) 115.9 mg/dL Reference Range: No NormalsPROTEIN, RANDOM [id number] 04:48:00 Test Item Value Reference Range Comments PROTEIN, URINE (BEAKER) (test qtce=8876) 12 mg/dL 0-14 CBC W/PLT COUNT & AUTO [id number] 04:30:00 Test Item Value Reference Range Comments WHITE BLOOD CELL COUNT (BEAKER) (test fyjx=029) 5.2 K/ L 3.5-10.5 RED BLOOD CELL COUNT (BEAKER) (test jjsh=241) 3.58 M/ L 3.93-5.22 HEMOGLOBIN (BEAKER) (test qqnx=271) 9.8 GM/DL 11.2-15.7 HEMATOCRIT (BEAKER) (test vutk=100) 31.6 % 34.1-44.9 MEAN CORPUSCULAR VOLUME (BEAKER) (test qnam=665) 88.3 fL 79.4-94.8 MEAN CORPUSCULAR HEMOGLOBIN (BEAKER) (test 27.4 pg 25.6-32.2 kqgt=135) MEAN CORPUSCULAR HEMOGLOBIN CONC (BEAKER) (test 31.0 GM/DL 32.2-35.5 bywt=288) RED CELL DISTRIBUTION WIDTH (BEAKER) (test 14.4 % 11.7-14.4 mffk=359) PLATELET COUNT (BEAKER) (test ttui=190) 173 K/CU MM 150-450 MEAN PLATELET VOLUME (BEAKER) (test ysac=850) 9.6 fL 9.4-12.3 NUCLEATED RED BLOOD CELLS (BEAKER) (test 0 /100 WBC 0-0 ldvn=773) NEUTROPHILS RELATIVE PERCENT (BEAKER) (test 67 % zbgi=294) LYMPHOCYTES RELATIVE PERCENT (BEAKER) (test 19 % dabc=424) MONOCYTES RELATIVE PERCENT (BEAKER) (test 8 % pqql=558) EOSINOPHILS RELATIVE PERCENT (BEAKER) (test 5 % wzks=593) BASOPHILS RELATIVE PERCENT (BEAKER) (test 1 % kakq=012) NEUTROPHILS ABSOLUTE COUNT (BEAKER) (test 3.43 K/ L 1.56-6.13 deor=291) LYMPHOCYTES ABSOLUTE COUNT (BEAKER) (test 0.98 K/ L 1.18-3.74 hnxy=210) MONOCYTES ABSOLUTE COUNT (BEAKER) (test 0.42 K/ L 0.24-0.36 skpf=202) EOSINOPHILS ABSOLUTE COUNT (BEAKER) (test 0.26 K/ L 0.04-0.36 shob=939) BASOPHILS ABSOLUTE COUNT (BEAKER) (test 0.04 K/ L 0.01-0.08 neit=889) IMMATURE GRANULOCYTES-RELATIVE PERCENT (BEAKER) 0 % 0-1 (test lsql=4587) U/S, ABDOMINAL, WITH [id number] 03:48:00Reason for exam:->TIPS workup , assess for vessels patencyFINAL REPORT INDICATION: TIPS workup, assess for vessels patency COMPARISON: February 17, 2019, February 16, 2019 TECHNIQUE: Real-time cuevas-scale transabdominal and color and spectral Doppler ultrasound. FINDINGS:Liver: Size: 12.9cm. Echogenicity: Coarsened. Masses/lesions: None. Surface Nodularity: None. Intrahepatic bile ducts: Normal. Common bile duct: 0.4cm. MPV: 1.2cm. Gallbladder: Stones: None. Sludge: None. Wall thickness: 0.4 cm. Pericholecystic fluid: None. Sonographic Stewart's sign: No sonographic Stewart's sign. Pancreas: Head and uncinate process: Unremarkable. Body and tail: Not well-seen. Spleen: Size:13.3cm. Echogenicity: Multiple echogenic foci. Right kidney: Size: 11.2 x 5.2 x 5.3 cm.Parenchyma : Normal echogenicity. No cysts. No stones. Hydronephrosis: None. Left kidney: Size: 11.6 x 5.0 x 4.5 cm. Parenchyma: Normal echogenicity. No cysts. No stones. Hydronephrosis:None. Ascites: Large volume. Regional Vasculature: The visible abdominal aorta, IVC and hepatic veins are patent. Color and Spectral imaging:MPV: Diameter: 1.2 Flow: Hepatopedal. Velocity: 28.2 cm/sec Filling defects: NoneLeft and right portal veins: Patent. Flow: AntegradeFilling defects: None. Hepatic arteries: Patent RI proper hepatic: 0.7 RI right hepatic:0.7 RI left hepatic: 0.7 IVC , Hepatic venous confluence, right HV, middle HV and left HV are patent. Additional findings: None. IMPRESSION: Cirrhosis and large volume ascites. Portal vein demonstrates hepatopedal flow. Signed: Elizabeth Johnson MDReport Verified Date/Time: 02/18/2019 03:48:21 Reading Location: [address] Neuro Reading Room Electronically signed by: Se SCHNEIDER 2018 03:48 AMPOCT-GLUCOSE [id number] 00:28:00 Test Item Value Reference Range Comments POC-GLUCOSE METER (BEAKER) 330 mg/dL 70-110 Will Repeat Test/TESTED AT (test wwrk=7830) [facility] [address] [facility] [address] BODY FLUID CELL COUNT WITH [id number] 18:02:00 Test Item Value Reference Range Comments APPEARANCE FLUID (BEAKER) (test krnj=365) Clear Clear COLOR FLUID (BEAKER) (test ohxa=711) Yellow Colorless, Straw RBC FLUID (BEAKER) (test jzax=950) 20 /cu mm <=1 ADJUSTED WBC FLUID (BEAKER) (test vwji=6703) 50 /cu mm <=5 LINING CELLS (BEAKER) (test piuq=4080) 0 /cu mm <=1 NEUTROPHILS FLUID (BEAKER) (test ecah=3138) 1 % LYMPHS FLUID (BEAKER) (test khns=091) 38 % MONO/MACROPHAGE FLUID (BEAKER) (test sibf=561) 61 % EOSINOPHILS FLUID (BEAKER) (test epoy=807) 0 % BASO FLUID (BEAKER) (test wglg=942) 0 % CONTAINER BODY FLUID (BEAKER) (test dfwp=2910) EDTA Tube U/S, [id number] 16:30:00limit volume to 8 LReason for exam:-> large volume ascites, limit volume to 8 LFINAL REPORT Paracentesis: Performing MD: Jessika Sadler M.D.Preoperative Diagnosis: AscitesPostoperative Diagnosis: AscitesAssistant: noneSpecimen: As requestedEstimated Blood Loss: less than 10 ccComplications: noneAnesthesia: local 2% subcutaneously at the insertion site Grafts or Implants: noneModality: sonographySedation: noneApproach: Right lower quadrant, anterior abdominalwall Technique: After informed written consent was obtained, the patient was prepped and draped in the usual sterile manner. Access was obtained using sonographic guidance. Images documented fluid.The images were saved to PACS. The right lower quadrant anterior abdominal wall was instrumented.A small bore catheter was advanced into the peritoneal space. The patient tolerated the procedure well. Impression:Successful, uncomplicated ultrasound guided paracentesis of the right lower quadrant peritoneal space. 8000 cc of serous fluid was removed. Signed: Jessika Sadler MDReport Verified Date/Time: 02/17 16:30:42 Reading Location: [address] Ultrasound Reading Room POCT-GLUCOSE [id number] 09:48:00 Test Item Value Reference Range Comments POC-GLUCOSE METER (BEAKER) 198 mg/dL 70-110 TESTED AT [address] (test bgeh=3698) [facility] [address] BASIC METABOLIC [id number] 06:30:00 Test Item Value Reference Range Comments SODIUM (BEAKER) (test 137 meq/L 136-145 cgar=848) POTASSIUM (BEAKER) (test 4.5 meq/L 3.5-5.1 qyaa=411) CHLORIDE (BEAKER) (test 107 meq/L 98-107 fsaq=137) CO2 (BEAKER) (test 24 meq/L 22-29 bpog=797) BLOOD UREA NITROGEN 41 mg/dL 7-21 (BEAKER) (test fgap=714) CREATININE (BEAKER) (test 1.48 mg/dL 0.57-1.25 cvfn=564) GLUCOSE RANDOM (BEAKER) 200 mg/dL 70-105 (test rldp=405) CALCIUM (BEAKER) (test 8.9 mg/dL 8.4-10.2 exxr=698) EGFR (BEAKER) (test 36 mL/min/1.73 sq m ESTIMATED GFR IS NOT ghpx=4233) ACCURATE CREATININE CLEARANCE IN PREDICTING GLOMERULAR FILTRATION RATE. ESTIMATED GFR IS NOT APPLICABLE FOR DIALYSIS PATIENTS. POCT-GLUCOSE [id number] 17:31:00 Test Item Value Reference Range Comments POC-GLUCOSE METER (BEAKER) 165 mg/dL 70-110 TESTED AT [facility] [address] [facility] (test ljlu=5710) [facility] [address] U/S, [id number] 16:00:00Reason for exam:->ascites SOBFINAL REPORT PROCEDURE: Ultrasound-guided paracentesis. INDICATION: Ascites. DESCRIPTION: This paracentesis was performed by Lesley Parnell under the direct supervision of Thomas Hendrix. After obtaining informed written consent, ultrasound scan of the abdomen identified ascites in the right lower quadrant. The overlying skin was prepped and draped in the usual, sterile fashion andlocal 2% lidocaine anesthesia was administered. A 5 Bulgarian catheter was advanced into the peritonealcavity and 6000 mL of clear yellow fluid was removed. The catheter was removed without immediate complication. Samples were sent for analysis. IMPRESSION: Uncomplicated ultrasound-guided paracentesis with 6000 mL fluid removed. Signed: Thomas Hendrix [facility] Verified Date/Time: 16:00:46 Reading Location: [address] Ultrasound Reading Room BODY FLUID CELL COUNT WITH [id number] 15:52:00 Test Item Value Reference Range Comments APPEARANCE FLUID (BEAKER) (test hiil=948) Clear Clear COLOR FLUID (BEAKER) (test jjyn=895) Yellow Colorless, Straw RBC FLUID (BEAKER) (test xdci=549) 10 /cu mm <=1 ADJUSTED WBC FLUID (BEAKER) (test mfkh=3129) 80 /cu mm <=5 LINING CELLS (BEAKER) (test vdsj=7133) 0 /cu mm <=1 NEUTROPHILS FLUID (BEAKER) (test gbpl=1118) 5 % LYMPHS FLUID (BEAKER) (test ymvb=872) 35 % MONO/MACROPHAGE FLUID (BEAKER) (test nhud=151) 59 % EOSINOPHILS FLUID (BEAKER) (test cwdf=710) 1 % BASO FLUID (BEAKER) (test rcnc=291) 0 % CONTAINER BODY FLUID (BEAKER) (test cygb=5726) EDTA Tube BASIC METABOLIC [id number] 07:28:00 Test Item Value Reference Range Comments SODIUM (BEAKER) (test 134 meq/L 136-145 bwdh=356) POTASSIUM (BEAKER) (test 5.0 meq/L 3.5-5.1 bvhq=316) CHLORIDE (BEAKER) (test 107 meq/L 98-107 tngk=692) CO2 (BEAKER) (test 22 meq/L 22-29 veeo=253) BLOOD UREA NITROGEN 46 mg/dL 7-21 (BEAKER) (test yksg=253) CREATININE (BEAKER) (test 1.61 mg/dL 0.57-1.25 qwek=856) GLUCOSE RANDOM (BEAKER) 220 mg/dL 70-105 (test trmk=592) CALCIUM (BEAKER) (test 9.0 mg/dL 8.4-10.2 sjat=971) EGFR (BEAKER) (test 33 mL/min/1.73 sq m ESTIMATED GFR IS NOT smiv=5169) ACCURATE CREATININE CLEARANCE IN PREDICTING GLOMERULAR FILTRATION RATE. ESTIMATED GFR IS NOT APPLICABLE FOR DIALYSIS PATIENTS. HEPATIC FUNCTION [id number] 07:28:00 Test Item Value Reference Range Comments TOTAL PROTEIN (BEAKER) (test kohm=183) 5.9 gm/dL 6.0-8.3 ALBUMIN (BEAKER) (test gpfa=3526) 3.0 g/dL 3.5-5.0 BILIRUBIN TOTAL (BEAKER) (test djai=277) 0.6 mg/dL 0.2-1.2 BILIRUBIN DIRECT (BEAKER) (test shlb=207) 0.3 mg/dL 0.1-0.5 ALKALINE PHOSPHATASE (BEAKER) (test wawy=583) 154 U/L 40-150 AST (SGOT) (BEAKER) (test dcme=577) 22 U/L 5-34 ALT (SGPT) (BEAKER) (test xvit=030) 12 U/L 6-55 [id number] 07:27:00 Test Item Value Reference Range Comments MAGNESIUM (BEAKER) (test aepp=144) 2.2 mg/dL 1.6-2.6 CBC W/PLT COUNT & AUTO [id number] 07:06:00 Test Item Value Reference Range Comments WHITE BLOOD CELL COUNT (BEAKER) (test cyum=299) 6.2 K/ L 3.5-10.5 RED BLOOD CELL COUNT (BEAKER) (test wwlc=208) 3.62 M/ L 3.93-5.22 HEMOGLOBIN (BEAKER) (test yxjo=714) 9.8 GM/DL 11.2-15.7 HEMATOCRIT (BEAKER) (test ntws=140) 31.4 % 34.1-44.9 MEAN CORPUSCULAR VOLUME (BEAKER) (test lmfx=116) 86.7 fL 79.4-94.8 MEAN CORPUSCULAR HEMOGLOBIN (BEAKER) (test 27.1 pg 25.6-32.2 zobg=649) MEAN CORPUSCULAR HEMOGLOBIN CONC (BEAKER) (test 31.2 GM/DL 32.2-35.5 dpga=768) RED CELL DISTRIBUTION WIDTH (BEAKER) (test 14.5 % 11.7-14.4 haxr=931) PLATELET COUNT (BEAKER) (test wunc=119) 198 K/CU MM 150-450 MEAN PLATELET VOLUME (BEAKER) (test psbe=658) 9.8 fL 9.4-12.3 NUCLEATED RED BLOOD CELLS (BEAKER) (test 0 /100 WBC 0-0 ignn=305) NEUTROPHILS RELATIVE PERCENT (BEAKER) (test 64 % gixd=673) LYMPHOCYTES RELATIVE PERCENT (BEAKER) (test 22 % khoh=344) MONOCYTES RELATIVE PERCENT (BEAKER) (test 9 % amjp=073) EOSINOPHILS RELATIVE PERCENT (BEAKER) (test 5 % rvts=422) BASOPHILS RELATIVE PERCENT (BEAKER) (test 1 % ymig=791) NEUTROPHILS ABSOLUTE COUNT (BEAKER) (test 3.93 K/ L 1.56-6.13 ozoa=838) LYMPHOCYTES ABSOLUTE COUNT (BEAKER) (test 1.35 K/ L 1.18-3.74 tqfq=018) MONOCYTES ABSOLUTE COUNT (BEAKER) (test 0.53 K/ L 0.24-0.36 gmnz=303) EOSINOPHILS ABSOLUTE COUNT (BEAKER) (test 0.28 K/ L 0.04-0.36 uate=034) BASOPHILS ABSOLUTE COUNT (BEAKER) (test 0.05 K/ L 0.01-0.08 jaud=837) IMMATURE GRANULOCYTES-RELATIVE PERCENT (BEAKER) 1 % 0-1 (test bqlv=4803) [id number] 06:49:00 Test Item Value Reference Range Comments PROTIME (BEAKER) (test ruck=962) 13.4 seconds 11.7-14.7 INR (BEAKER) (test yoaq=361) 1.0 <=5.9 PARTIAL THROMBOPLASTIN TIME (BEAKER) (test 30.9 seconds 22.5-36.0 edyn=468) RECOMMENDED COUMADIN/WARFARIN INR THERAPY RANGESSTANDARD DOSE: 2.0 - 3.0 Includes: PROPHYLAXIS forvenous thrombosis, systemic embolization; TREATMENT for venous thrombosis and/or pulmonary embolus.HIGH RISK: Target INR is 2.5-3.5 for patients with mechanical heart valves.URINALYSIS W/ REFLEX URINE [id number] 05:32:00 Test Item Value Reference Range Comments COLOR (BEAKER) (test fxwu=455) Yellow CLARITY (BEAKER) (test alpd=842) Hazy SPECIFIC GRAVITY UA (BEAKER) (test oolq=900) 1.021 1.001-1.035 PH UA (BEAKER) (test muhb=485) 5.5 5.0-8.0 PROTEIN UA (BEAKER) (test uajr=309) 30 mg/dL Negative GLUCOSE UA (BEAKER) (test jmpv=931) Negative Negative KETONES UA (BEAKER) (test tjlu=900) Negative Negative BILIRUBIN UA (BEAKER) (test hefk=888) Negative Negative BLOOD UA (BEAKER) (test qzic=859) Negative Negative NITRITE UA (BEAKER) (test zuno=897) Negative Negative LEUKOCYTE ESTERASE UA (BEAKER) (test odue=513) Large Negative UROBILINOGEN UA (BEAKER) (test mdrk=556) 2.0 mg/dL 0.2-1.0 RBC UA (BEAKER) (test tait=943) 7 /HPF WBC UA (BEAKER) (test clet=508) 7 /HPF MUCUS (BEAKER) (test dozo=7707) Rare SQUAMOUS EPITHELIAL (BEAKER) (test inrt=112) 6 /HPF HYALINE CASTS (BEAKER) (test lqtg=431) 40 /LPF SOURCE(BEAKER) (test ktqd=1548) POCT-GLUCOSE [id number] 05:00:00 Test Item Value Reference Range Comments POC-GLUCOSE METER (BEAKER) 227 mg/dL 70-110 TESTED AT [facility] [address] (test xxka=5546) [facility] [address] ALPHA FETOPROTEIN (AFP), TUMOR [id number] 15:55:00 Test Item Value Reference Range Comments ALPHA-FETOPROTEIN (BEAKER) (test euha=9945) 3.4 ng/mL <10.0 BASIC METABOLIC [id number] 15:40:00 Test Item Value Reference Range Comments SODIUM (BEAKER) (test 133 meq/L 136-145 efys=350) POTASSIUM (BEAKER) (test 4.8 meq/L 3.5-5.1 pcet=844) CHLORIDE (BEAKER) (test 101 meq/L 98-107 fxof=397) CO2 (BEAKER) (test 23 meq/L 22-29 fnxy=760) BLOOD UREA NITROGEN 37 mg/dL 7-21 (BEAKER) (test tddm=259) CREATININE (BEAKER) (test 2.17 mg/dL 0.57-1.25 aemr=699) GLUCOSE RANDOM (BEAKER) 191 mg/dL 70-105 (test oafo=977) CALCIUM (BEAKER) (test 9.2 mg/dL 8.4-10.2 knre=303) EGFR (BEAKER) (test 23 mL/min/1.73 sq m ESTIMATED GFR IS NOT zruz=2897) ACCURATE CREATININE CLEARANCE IN PREDICTING GLOMERULAR FILTRATION RATE. ESTIMATED GFR IS NOT APPLICABLE FOR DIALYSIS PATIENTS. HEPATIC FUNCTION [id number] 15:38:00 Test Item Value Reference Range Comments TOTAL PROTEIN (BEAKER) (test wugv=764) 6.9 gm/dL 6.0-8.3 ALBUMIN (BEAKER) (test kgaz=4106) 3.7 g/dL 3.5-5.0 BILIRUBIN TOTAL (BEAKER) (test yict=148) 0.8 mg/dL 0.2-1.2 BILIRUBIN DIRECT (BEAKER) (test uccm=956) 0.3 mg/dL 0.1-0.5 ALKALINE PHOSPHATASE (BEAKER) (test mniu=179) 95 U/L 40-150 AST (SGOT) (BEAKER) (test brqh=804) 24 U/L 5-34 ALT (SGPT) (BEAKER) (test knbf=646) 14 U/L 6-55 PROTHROMBIN [id number] 15:29:00 Test Item Value Reference Range Comments PROTIME (BEAKER) (test hzbn=538) 12.8 seconds 11.7-14.7 INR (BEAKER) (test rucz=826) 1.0 <=5.9 RECOMMENDED COUMADIN/WARFARIN INR THERAPY RANGESSTANDARD DOSE: 2.0 - 3.0 Includes: PROPHYLAXIS forvenous thrombosis, systemic embolization; TREATMENT for venous thrombosis and/or pulmonary embolus.HIGH RISK: Target INR is 2.5-3.5 for patients with mechanical heart valves.CBC W/PLT COUNT & AUTO [id number] 15:17:00 Test Item Value Reference Range Comments WHITE BLOOD CELL COUNT (BEAKER) (test egwx=996) 7.8 K/ L 3.5-10.5 RED BLOOD CELL COUNT (BEAKER) (test hlbk=416) 4.49 M/ L 3.93-5.22 HEMOGLOBIN (BEAKER) (test drgo=476) 12.4 GM/DL 11.2-15.7 HEMATOCRIT (BEAKER) (test cmmv=382) 39.1 % 34.1-44.9 MEAN CORPUSCULAR VOLUME (BEAKER) (test iwyk=415) 87.1 fL 79.4-94.8 MEAN CORPUSCULAR HEMOGLOBIN (BEAKER) (test 27.6 pg 25.6-32.2 hfiv=247) MEAN CORPUSCULAR HEMOGLOBIN CONC (BEAKER) (test 31.7 GM/DL 32.2-35.5 cdwh=741) RED CELL DISTRIBUTION WIDTH (BEAKER) (test 14.0 % 11.7-14.4 ctyi=737) PLATELET COUNT (BEAKER) (test dnpf=353) 196 K/CU MM 150-450 MEAN PLATELET VOLUME (BEAKER) (test ahnr=305) 9.9 fL 9.4-12.3 NUCLEATED RED BLOOD CELLS (BEAKER) (test 0 /100 WBC 0-0 sutq=499) NEUTROPHILS RELATIVE PERCENT (BEAKER) (test 72 % vrrm=176) LYMPHOCYTES RELATIVE PERCENT (BEAKER) (test 18 % jodi=034) MONOCYTES RELATIVE PERCENT (BEAKER) (test 6 % rtvn=428) EOSINOPHILS RELATIVE PERCENT (BEAKER) (test 4 % gxuf=835) BASOPHILS RELATIVE PERCENT (BEAKER) (test 1 % sacc=303) NEUTROPHILS ABSOLUTE COUNT (BEAKER) (test 5.62 K/ L 1.56-6.13 hjxj=815) LYMPHOCYTES ABSOLUTE COUNT (BEAKER) (test 1.37 K/ L 1.18-3.74 noof=849) MONOCYTES ABSOLUTE COUNT (BEAKER) (test 0.43 K/ L 0.24-0.36 akbc=588) EOSINOPHILS ABSOLUTE COUNT (BEAKER) (test 0.28 K/ L 0.04-0.36 ibtr=632) BASOPHILS ABSOLUTE COUNT (BEAKER) (test 0.07 K/ L 0.01-0.08 ovec=112) IMMATURE GRANULOCYTES-RELATIVE PERCENT (BEAKER) 0 % 0-1 (test ubch=5890) ANTI-MITOCHONDRIAL AB, REFLEX TO [id number] 08:36:00 Test Item Value Reference Range Comments SCAN RESULT (test wwgk=[id number]) OSMOLALITY, [id number] 10:30:00 Test Item Value Reference Range Comments OSMOLALITY, SERUM (BEAKER) (test wmme=695) 301 mOsm/kg 275-295 POCT-GLUCOSE [id number] 08:26:00 Test Item Value Reference Range Comments POC-GLUCOSE METER (BEAKER) 243 mg/dL 70-110 TESTED AT [facility] [address] [place] [address] (test lkle=5400) [facility] [address] COMPREHENSIVE METABOLIC [id number] 08:05:00 Test Item Value Reference Range Comments TOTAL PROTEIN (BEAKER) 5.5 gm/dL 6.0-8.3 (test ekni=325) ALBUMIN (BEAKER) (test 3.2 g/dL 3.5-5.0 xpxy=3180) ALKALINE PHOSPHATASE 75 U/L 40-150 (BEAKER) (test krot=414) BILIRUBIN TOTAL (BEAKER) 0.9 mg/dL 0.2-1.2 (test dewb=995) SODIUM (BEAKER) (test 132 meq/L 136-145 jxbo=413) POTASSIUM (BEAKER) (test 4.3 meq/L 3.5-5.1 podw=297) CHLORIDE (BEAKER) (test 101 meq/L 98-107 ludq=136) CO2 (BEAKER) (test 25 meq/L 22-29 rimc=125) BLOOD UREA NITROGEN 45 mg/dL 7-21 (BEAKER) (test aczq=302) CREATININE (BEAKER) (test 1.89 mg/dL 0.57-1.25 vuqs=899) GLUCOSE RANDOM (BEAKER) 241 mg/dL 70-105 (test cmcr=998) CALCIUM (BEAKER) (test 8.6 mg/dL 8.4-10.2 bcth=969) AST (SGOT) (BEAKER) (test 19 U/L 5-34 scyt=172) ALT (SGPT) (BEAKER) (test 10 U/L 6-55 semh=574) EGFR (BEAKER) (test 27 mL/min/1.73 sq m ESTIMATED GFR IS NOT voho=2097) ACCURATE CREATININE CLEARANCE IN PREDICTING GLOMERULAR FILTRATION RATE. ESTIMATED GFR IS NOT APPLICABLE FOR DIALYSIS PATIENTS. [id number] 08:02:00 Test Item Value Reference Range Comments PHOSPHORUS (BEAKER) (test krgk=594) 3.6 mg/dL 2.3-4.7 [id number] 08:02:00 Test Item Value Reference Range Comments MAGNESIUM (BEAKER) (test aeyz=910) 2.0 mg/dL 1.6-2.6 CBC W/PLT COUNT & AUTO [id number] 05:40:00 Test Item Value Reference Range Comments WHITE BLOOD CELL COUNT (BEAKER) (test jdar=261) 5.7 K/ L 3.5-10.5 RED BLOOD CELL COUNT (BEAKER) (test pkvj=133) 3.76 M/ L 3.93-5.22 HEMOGLOBIN (BEAKER) (test kkfw=444) 10.6 GM/DL 11.2-15.7 HEMATOCRIT (BEAKER) (test rvfz=651) 32.9 % 34.1-44.9 MEAN CORPUSCULAR VOLUME (BEAKER) (test jpva=508) 87.5 fL 79.4-94.8 MEAN CORPUSCULAR HEMOGLOBIN (BEAKER) (test 28.2 pg 25.6-32.2 exrq=657) MEAN CORPUSCULAR HEMOGLOBIN CONC (BEAKER) (test 32.2 GM/DL 32.2-35.5 anlq=695) RED CELL DISTRIBUTION WIDTH (BEAKER) (test 14.2 % 11.7-14.4 roys=805) PLATELET COUNT (BEAKER) (test bgyq=994) 142 K/CU MM 150-450 MEAN PLATELET VOLUME (BEAKER) (test vbgx=627) 9.8 fL 9.4-12.3 NUCLEATED RED BLOOD CELLS (BEAKER) (test 0 /100 WBC 0-0 kpcu=338) NEUTROPHILS RELATIVE PERCENT (BEAKER) (test 70 % mkha=965) LYMPHOCYTES RELATIVE PERCENT (BEAKER) (test 19 % mrce=800) MONOCYTES RELATIVE PERCENT (BEAKER) (test 7 % crph=513) EOSINOPHILS RELATIVE PERCENT (BEAKER) (test 3 % fnfb=509) BASOPHILS RELATIVE PERCENT (BEAKER) (test 1 % psgj=744) NEUTROPHILS ABSOLUTE COUNT (BEAKER) (test 3.99 K/ L 1.56-6.13 kanu=272) LYMPHOCYTES ABSOLUTE COUNT (BEAKER) (test 1.05 K/ L 1.18-3.74 dvql=829) MONOCYTES ABSOLUTE COUNT (BEAKER) (test 0.40 K/ L 0.24-0.36 bwlu=939) EOSINOPHILS ABSOLUTE COUNT (BEAKER) (test 0.16 K/ L 0.04-0.36 tkrz=361) BASOPHILS ABSOLUTE COUNT (BEAKER) (test 0.04 K/ L 0.01-0.08 bjde=580) IMMATURE GRANULOCYTES-RELATIVE PERCENT (BEAKER) 0 % 0-1 (test nfmk=0988) CALCIUM, [id number] 05:17:00 Test Item Value Reference Range Comments CALCIUM IONIZED (BEAKER) (test bmbz=423) 1.06 mmol/L 1.12-1.27 PH, BLOOD (BEAKER) (test mdck=2105) 7.41 U/S, RENAL, [id number] 03:59:00Reason for exam:->HEMALATHA/CKDShould this be performed at [...] Wilson Verified Date/Time: 11/24/2018 03:59:04 Reading Location: [facility] C0[facility] Transitional Reading Room TROPONIN [id number] 23:19:00 Test Item Value Reference Range Comments TROPONIN I (BEAKER) (test ztmd=829) < ng/mL 0.00-0.03 Troponin I (TnI) levels [...] acidosis, acute neurological disease, and persistent tachyarrhythmia.POCT-GLUCOSE [id number] 21:12:00 Test Item Value Reference Range Comments POC-GLUCOSE METER (BEAKER) 277 mg/dL 70-110 TESTED AT [address] (test phbo=8583) [facility] [address] PROTEIN, RANDOM [id number] 20:11:00 Test Item Value Reference Range Comments PROTEIN, URINE (BEAKER) (test qmef=1130) 10 mg/dL 0-14 SODIUM, RANDOM [id number] 20:05:00 Test Item Value Reference Range Comments SODIUM URINE (BEAKER) (test jnzu=794) < meq/L Reference Range: No NormalsPOCT-GLUCOSE [id number] 17:28:00 Test Item Value Reference Range Comments POC-GLUCOSE METER (BEAKER) 291 mg/dL 70-110 TESTED AT [address] (test sffs=0049) [facility] [address] POCT-GLUCOSE [id number] 14:02:00 Test Item Value Reference Range Comments POC-GLUCOSE METER (BEAKER) 148 mg/dL 70-110 TESTED AT [facility] [address] (test vgws=4718) [facility] [address] URINALYSIS W/ [id number] 13:32:00 Test Item Value Reference Range Comments COLOR (BEAKER) (test gsqg=850) Yellow CLARITY (BEAKER) (test iadu=031) Clear SPECIFIC GRAVITY UA (BEAKER) (test 1.015 1.001-1.035 vthc=178) PH UA (BEAKER) (test lhyu=880) 5.0 5.0-8.0 PROTEIN UA (BEAKER) (test ftff=001) Negative Negative GLUCOSE UA (BEAKER) (test quxk=946) Negative Negative KETONES UA (BEAKER) (test hfod=746) Negative Negative BILIRUBIN UA (BEAKER) (test vrnl=150) Negative Negative BLOOD UA (BEAKER) (test pcvj=533) Negative Negative NITRITE UA (BEAKER) (test nfuk=478) Negative Negative LEUKOCYTE ESTERASE UA (BEAKER) (test Negative Negative wkfv=873) UROBILINOGEN UA (BEAKER) (test qjjy=501) 0.2 mg/dL 0.2-1.0 RBC UA (BEAKER) (test irpx=990) < /HPF WBC UA (BEAKER) (test aosy=467) 2 /HPF BACTERIA (BEAKER) (test hrne=004) Occasional SQUAMOUS EPITHELIAL (BEAKER) (test 19 /HPF llbc=218) HYALINE CASTS (BEAKER) (test nksc=290) 5 /LPF AMORPHOUS CRYSTALS (BEAKER) (test Occasional utxz=0650) SOURCE(BEAKER) (test lcur=6944) Urine, Clean Catch U/S, ABDOMINAL, [id number] 13:29:00Abdomen limited area? Add comment if clarification [...] Valles Verified Date/Time: 11/23/2018 13:29:13 Reading Location: [address] Transitional Reading Room U/S, [id number] 13:01:00Reason for exam:->Therapeutic paracentesisFINAL REPORT Paracentesis dated 11/23/2018 Procedure: Ultrasound-guided paracentesis. Preprocedure diagnosis: Ascites Postprocedure diagnosis: Ascites Conscious sedation: None. Radiologist: Giovanni Haas M.D. Mechanical Design Engineer: None Anesthesia: 1% Xylocaine mixed with sodium bicarbonate local anesthesia. Technique: After obtaining informed consent, ultrasound-guided paracentesis was performed under usual sterile technique. Using a 5 ethiopian drainage catheter , puncture was made in the right lower quadrant abdomen. Approximately 16,200 cc of serous fluid was removed. Patient tolerated the procedure well without complication. Complication: None Graft/Implant: None Estimated Blood Loss: None Impression: Ultrasound-guided paracentesis. Signed: Giovanni Haas Verified Date/Time: 11/23/2018 13:01:25 Reading Location: [facility] C013X Ortho Consult Reading Room Electronically signedby: GIOVANNI HAAS M.D. on 2018 01:01 PMCBC W/PLT COUNT & AUTO [id number] 08:55:00 Test Item Value Reference Range Comments WHITE BLOOD CELL COUNT (BEAKER) (test qndh=015) 5.7 K/ L 3.5-10.5 RED BLOOD CELL COUNT (BEAKER) (test yuyg=397) 3.72 M/ L 3.93-5.22 HEMOGLOBIN (BEAKER) (test cswa=036) 10.5 GM/DL 11.2-15.7 HEMATOCRIT (BEAKER) (test yryv=218) 32.5 % 34.1-44.9 MEAN CORPUSCULAR VOLUME (BEAKER) (test jama=401) 87.4 fL 79.4-94.8 MEAN CORPUSCULAR HEMOGLOBIN (BEAKER) (test 28.2 pg 25.6-32.2 egoo=652) MEAN CORPUSCULAR HEMOGLOBIN CONC (BEAKER) (test 32.3 GM/DL 32.2-35.5 hnej=288) RED CELL DISTRIBUTION WIDTH (BEAKER) (test 14.5 % 11.7-14.4 tqaf=603) PLATELET COUNT (BEAKER) (test xeog=752) 148 K/CU MM 150-450 MEAN PLATELET VOLUME (BEAKER) (test qbdy=464) 9.4 fL 9.4-12.3 NUCLEATED RED BLOOD CELLS (BEAKER) (test 0 /100 WBC 0-0 yeie=690) NEUTROPHILS RELATIVE PERCENT (BEAKER) (test 63 % nobl=511) LYMPHOCYTES RELATIVE PERCENT (BEAKER) (test 23 % gwdd=692) MONOCYTES RELATIVE PERCENT (BEAKER) (test 8 % povj=488) EOSINOPHILS RELATIVE PERCENT (BEAKER) (test 5 % jtzv=585) BASOPHILS RELATIVE PERCENT (BEAKER) (test 1 % cnnu=444) NEUTROPHILS ABSOLUTE COUNT (BEAKER) (test 3.61 K/ L 1.56-6.13 icoj=600) LYMPHOCYTES ABSOLUTE COUNT (BEAKER) (test 1.29 K/ L 1.18-3.74 kblz=883) MONOCYTES ABSOLUTE COUNT (BEAKER) (test 0.47 K/ L 0.24-0.36 ktoi=754) EOSINOPHILS ABSOLUTE COUNT (BEAKER) (test 0.28 K/ L 0.04-0.36 widr=608) BASOPHILS ABSOLUTE COUNT (BEAKER) (test 0.05 K/ L 0.01-0.08 hbmg=709) IMMATURE GRANULOCYTES-RELATIVE PERCENT (BEAKER) 0 % 0-1 (test zhor=1032) POCT-GLUCOSE [id number] 07:43:00 Test Item Value Reference Range Comments POC-GLUCOSE METER (BEAKER) 196 mg/dL 70-110 TESTED AT [facility] [address] (test odpi=0676) [facility] [address] [id number] 06:53:00 Test Item Value Reference Range Comments FERRITIN (BEAKER) (test muat=875) 52 ng/mL 5-275 HEPATITIS B [id number] 06:21:00 Test Item Value Reference Range Comments HEPATITIS B CORE TOTAL ANTIBODY (BEAKER) (test Nonreactive Nonreactive oirq=592) HEPATITIS B SURFACE ANTIBODY (BEAKER) (test < mIU/mL <8.0 xvqa=328) HEPATITIS B SURFACE ANTIGEN (2) (BEAKER) (test Nonreactive Nonreactive rwac=6147) HEPATITIS C [id number] 06:20:00 Test Item Value Reference Range Comments HEPATITIS C ANTIBODY (BEAKER) (test zzgj=288) Nonreactive Nonreactive HEPATITIS A [id number] 06:20:00 Test Item Value Reference Range Comments HEPATITIS A IGM ANTIBODY (BEAKER) (test Nonreactive Nonreactive gqen=953) HEPATITIS A IGG ANTIBODY (BEAKER) (test Nonreactive Nonreactive vttf=9153) ALPHA FETOPROTEIN (AFP), TUMOR [id number] 06:14:00 Test Item Value Reference Range Comments ALPHA-FETOPROTEIN (BEAKER) (test qzrp=6355) 2.1 ng/mL <10.0 COMPREHENSIVE METABOLIC [id number] 06:01:00 Test Item Value Reference Range Comments TOTAL PROTEIN (BEAKER) 5.9 gm/dL 6.0-8.3 (test puao=735) ALBUMIN (BEAKER) (test 2.9 g/dL 3.5-5.0 bduo=3776) ALKALINE PHOSPHATASE 96 U/L 40-150 (BEAKER) (test nrkz=466) BILIRUBIN TOTAL (BEAKER) 0.5 mg/dL 0.2-1.2 (test duly=297) SODIUM (BEAKER) (test 132 meq/L 136-145 ltvl=829) POTASSIUM (BEAKER) (test 4.3 meq/L 3.5-5.1 nsez=652) CHLORIDE (BEAKER) (test 100 meq/L 98-107 hzof=623) CO2 (BEAKER) (test 26 meq/L 22-29 dlgh=856) BLOOD UREA NITROGEN 50 mg/dL 7-21 (BEAKER) (test zamn=427) CREATININE (BEAKER) (test 2.27 mg/dL 0.57-1.25 ykvg=361) GLUCOSE RANDOM (BEAKER) 219 mg/dL 70-105 (test cati=575) CALCIUM (BEAKER) (test 8.8 mg/dL 8.4-10.2 emux=134) AST (SGOT) (BEAKER) (test 22 U/L 5-34 tojk=340) ALT (SGPT) (BEAKER) (test 15 U/L 6-55 vxyy=262) EGFR (BEAKER) (test 22 mL/min/1.73 sq m ESTIMATED GFR IS NOT kvwy=9256) ACCURATE CREATININE CLEARANCE IN PREDICTING GLOMERULAR FILTRATION RATE. ESTIMATED GFR IS NOT APPLICABLE FOR DIALYSIS PATIENTS. IRON, TIBC, % SAT. (WITHOUT FERRITIN)2018-11-23 05:55:00 Test Item Value Reference Range Comments IRON (BEAKER) (test dpmj=229) 46.0 ug/dL 40.0-160.0 TOTAL IRON BINDING CAPACITY (BEAKER) (test 269 ug/dL 250-450 dpel=111) IRON % SATURATION (2) (BEAKER) (test hjao=4980) 17 % 20-55 [id number] 05:54:00 Test Item Value Reference Range Comments ALPHA-1 ANTITRYPSIN (BEAKER) (test qweu=634) 202.70 mg/dL 90.00-200.00 COMPREHENSIVE METABOLIC [id number] 00:16:00 Test Item Value Reference Range Comments TOTAL PROTEIN (BEAKER) 6.8 gm/dL 6.0-8.3 (test sbaq=997) ALBUMIN (BEAKER) (test 3.3 g/dL 3.5-5.0 zivj=1435) ALKALINE PHOSPHATASE 114 U/L 40-150 (BEAKER) (test gjvc=191) BILIRUBIN TOTAL (BEAKER) 0.6 mg/dL 0.2-1.2 (test jkwn=091) SODIUM (BEAKER) (test 130 meq/L 136-145 cvqg=305) POTASSIUM (BEAKER) (test 4.4 meq/L 3.5-5.1 zxhb=440) CHLORIDE (BEAKER) (test 99 meq/L 98-107 vnig=093) CO2 (BEAKER) (test 22 meq/L 22-29 netu=338) BLOOD UREA NITROGEN 46 mg/dL 7-21 (BEAKER) (test csdl=449) CREATININE (BEAKER) (test 2.40 mg/dL 0.57-1.25 kqhf=681) GLUCOSE RANDOM (BEAKER) 153 mg/dL 70-105 (test crfm=803) CALCIUM (BEAKER) (test 9.1 mg/dL 8.4-10.2 kpel=349) AST (SGOT) (BEAKER) (test 25 U/L 5-34 oysr=595) ALT (SGPT) (BEAKER) (test 17 U/L 6-55 zwtk=458) EGFR (BEAKER) (test 21 mL/min/1.73 sq m ESTIMATED GFR IS NOT bsre=3923) ACCURATE CREATININE CLEARANCE IN PREDICTING GLOMERULAR FILTRATION RATE. ESTIMATED GFR IS NOT APPLICABLE FOR DIALYSIS PATIENTS. [id number] 23:52:00 Test Item Value Reference Range Comments PROTIME (BEAKER) (test kvrl=341) 13.3 seconds 11.7-14.7 INR (BEAKER) (test qnvb=355) 1.0 <=5.9 PARTIAL THROMBOPLASTIN TIME (BEAKER) (test 26.9 seconds 22.5-36.0 qrhk=744) RECOMMENDED COUMADIN/WARFARIN INR THERAPY RANGESSTANDARD DOSE: 2.0 - 3.0 Includes: PROPHYLAXIS forvenous thrombosis, systemic embolization; TREATMENT for venous thrombosis and/or pulmonary embolus.HIGH RISK: Target INR is 2.5-3.5 for patients with mechanical heart valves.POCT-GLUCOSE [id number] 21:25:00 Test Item Value Reference Range Comments POC-GLUCOSE METER (BEAKER) 178 mg/dL 70-110 TESTED AT [facility] [address] [facility] (test shut=5088) [facility] [id number]
[2019-04-06] MEDS ORDERED: ACETAMINOPHEN 500 MG TAB ONE (16:07)
--- NOTE | 2019-04-06 17:44 | RAD REPORT ---
EXAM DESCRIPTION: CT - Head C Spine Cap Wo Con - 04/06/2019 5:10 pm TECHNIQUE: Computed axial tomography of the head and cervical spine was obtained. Coronal and sagitt al reconstruction was performed Computed axial tomography of the chest, abdomen and pelvis was obtained. Contrast was not requested. All CT scans are performed using dose optimization technique as appropriate and may include automated exposure control or mA/KV adjustment according to patient size. CLINICAL HISTORY: Head and neck injury with chest and abdominal pain status post fall COMPARISON: CT 2016 FINDINGS: An intracranial bleed is not seen. The ventricles are normal in caliber. An extra-axial fluid collection is not noted. . Fluid within the sinuses/mastoids is not seen. A cervical fracture is not seen. No dislocation is noted. The evaluation of mediastinum, tim, vessels, solid organs and bowel are limited secondary to the lac k of contrast administration. A mediastinal hematoma is not noted. A pleural effusion is not seen. A lung contusion is not present. A cirrhotic liver with stent. Spleen, pancreas, adrenals, kidneys and bladder appear grossly normal Small umbilical hernia Moderate ascites. 5 centimeter lipoma right lateral abdominal wall musculature IMPRESSION: 1. No acute intracranial abnormality is seen. 2. A cervical fracture is not visualized. If the patient continues have symptoms to suggest intracran ial/spinal cord pathology MRI be recommended 3. No traumatic abnormality involving the chest/abdomen/pelvis.
--- NOTE | 2019-04-06 17:54 | EDPHYS ---
Physician Documentation [facility] Name: Dee Maciel Age: 59 yrs Sex: Female : 1960 Arrival Date: 04/06/2019 Time: 15:04 Bed 27 Private MD: ED Physician Maynor Lo HPI: 04/06 15:45 This 59 yrs old Female presents to ER via EMS with complaints of Fall Injury. lor 15:45 Details of fall: The patient fell from an upright position, while walking. Onset: The lor symptoms/episode began/occurred just prior to arrival. Associated injuries: The patient sustained injury to the head, neck injury, upper back injury, injury to the low back. Severity of symptoms: At their worst the symptoms were mild, moderate, in the emergency department the symptoms are unchanged. The patient has not experienced similar symptoms in the past. Historical: - Allergies: 17:57 No Known Allergies; hb - Home Meds: 17:57 furosemide 40 mg Oral tab 1.5 tab once daily [Active]; gabapentin 100 mg Oral cap 2 hb caps nightly [Active]; glimepiride 1 mg Oral tab 1 tab once daily [Active]; lactulose 10 gram/15 mL (15 mL) Oral soln 30 mL twice a day [Active]; levothyroxine 200 mcg tab 1 tab once daily [Active]; midodrine 5 mg Oral tab 1 tabs twice a day [Active]; omeprazole 20 mg Oral cpDR 1 cap once daily [Active]; pioglitazone 15 mg Oral tab 1 tab once daily [Active]; sertraline 50 mg Oral tab 1 tab once daily [Active]; simvastatin 20 mg Oral tab 1 tab once daily [Active]; spironolactone 100 mg Oral tab 1 tab once daily [Active]; - PMHx: 17:57 Diabetes - NIDDM; Hypothyroidism; [place] liver; hb - PSHx: 17:57 paracentesis; hb - Immunization history:: Adult Immunizations. - Social history:: Smoking status: Patient/guardian denies using tobacco. - Immunization history: Last tetanus immunization: - up to date. - Family history:: not pertinent. - Ebola Screening: : No symptoms or risks identified at this time. ROS: 15:45 Constitutional: Negative for fever, chills, and weight loss, Eyes: Negative for injury, lor pain, redness, and discharge, ENT: Negative for injury, pain, and discharge, Neck: Negative for injury, pain, and swelling, Cardiovascular: Negative for chest pain, palpitations, and edema, Respiratory: Negative for shortness of breath, cough, wheezing, and pleuritic chest pain, Abdomen/GI: Negative for abdominal pain, nausea, vomiting, diarrhea, and constipation, Back: Negative for injury and pain, : Negative for injury, bleeding, discharge, and swelling, MS/Extremity: Negative for injury and deformity, Skin: Negative for injury, rash, and discoloration, Psych: Negative for depression, anxiety, suicide ideation, homicidal ideation, and hallucinations, Allergy/Immunology: Negative for hives, rash, and allergies, Endocrine: Negative for neck swelling, polydipsia, polyuria, polyphagia, and marked weight changes, Hematologic/Lymphatic: Negative for swollen nodes, abnormal bleeding, and unusual bruising. 15:45 MS/extremity: Positive for abrasion, pain, of the right knee. 15:45 Neuro: Positive for headache. Exam: 15:45 Constitutional: This is a well developed, well nourished patient who is awake, alert, lor and in no acute distress. Head/Face: Normocephalic, atraumatic. Eyes: Pupils equal round and reactive to light, extra-ocular motions intact. Lids and lashes normal. Conjunctiva and sclera are non-icteric and not injected. Cornea within normal limits. Periorbital areas with no swelling, redness, or edema. ENT: Nares patent. No nasal discharge, no septal abnormalities noted. Tympanic membranes are normal and external auditory canals are clear. Oropharynx with no redness, swelling, or masses, exudates, or evidence of obstruction, uvula midline. Mucous membranes moist. Neck: Trachea midline, no thyromegaly or masses palpated, and no cervical lymphadenopathy. Supple, full range of motion without nuchal rigidity, or vertebral point tenderness. No Meningismus. Chest/axilla: Normal chest wall appearance and motion. Nontender with no deformity. No lesions are appreciated. Cardiovascular: Regular rate and rhythm with a normal S1 and S2. No gallops, murmurs, or rubs. Normal PMI, no JVD. No pulse deficits. Respiratory: Lungs have equal breath sounds bilaterally, clear to auscultation and percussion. No rales, rhonchi or wheezes noted. No increased work of breathing, no retractions or nasal flaring. Abdomen/GI: Soft, non-tender, with normal bowel sounds. No distension or tympany. No guarding or rebound. No evidence of tenderness throughout. Female : Normal external genitalia. Skin: Warm, dry with normal turgor. Normal color with no rashes, no lesions, and no evidence of cellulitis. Neuro: Awake and alert, GCS 15, oriented to person, place, time, and situation. Cranial nerves II-XII grossly intact. Motor strength 5/5 in all extremities. Sensory grossly intact. Cerebellar exam normal. Normal gait. Psych: Awake, alert, with orientation to person, place and time. Behavior, mood, and affect are within normal limits. 15:45 Back: pain, that is mild, that is moderate, ROM is painful, normal spinal alignment noted, CVA tenderness, is absent, vertebral tenderness, is not appreciated, muscle spasm, is not present. Vital Signs: 15:08 BP 102 / 68; Pulse 80; Resp 16; Temp 98.2; Pulse Ox 95% on R/A; Pain 0/10; hb 16:00 BP 108 / 68; Pulse 78; Resp 15; Pulse Ox 99% on R/A; Pain 0/10; hb 17:00 BP 112 / 70; Pulse 75; Resp 14; Pulse Ox 99% on R/A; hb 18:00 BP 116 / 72; Pulse 66; Resp 15; Pulse Ox 100% on R/A; Pain 0/10; hb [place] Coma Score: 16:00 Eye Response: spontaneous(4). Verbal Response: oriented(5). Motor Response: obeys hb commands(6). Total: 15. Trauma Score (Adult): 15:08 Eye Response: spontaneous(1); Verbal Response: oriented(1); Motor Response: obeys hb commands(2); Systolic BP: > 89 mm Hg(4); Respiratory Rate: 10 to 29 per min(4); [place] Score: 15; Trauma Score: 12 16:00 Eye Response: spontaneous(1); Verbal Response: oriented(1); Motor Response: obeys hb commands(2); Systolic BP: > 89 mm Hg(4); Respiratory Rate: 10 to 29 per min(4); [place] Score: 15; Trauma Score: 12 17:00 Eye Response: spontaneous(1); Verbal Response: oriented(1); Motor Response: obeys hb commands(2); Systolic BP: > 89 mm Hg(4); Respiratory Rate: 10 to 29 per min(4); [place] Score: 15; Trauma Score: 12 18:00 Eye Response: spontaneous(1); Verbal Response: oriented(1); Motor Response: obeys hb commands(2); Systolic BP: > 89 mm Hg(4); Respiratory Rate: 10 to 29 per min(4); [place] Score: 15; Trauma Score: 12 MDM: 15:08 Patient medically screened. [facility] 15:47 Data reviewed: vital signs, nurses notes, lab test result(s), radiologic studies, CT lor scan. 04/06 16:20 Order name: Urine Dipstick--Ancillary (enter results) 04/06 17:48 Order name: CT; Complete Time: 17:52 EDOH 04/06 15:45 Order name: Ice pack; Complete Time: 16:21 [facility] 04/06 15:47 Order name: Urine Dipstick-Ancillary (obtain specimen); Complete Time: 16:20 [facility] Administered Medications: 16:20 Drug: Neosporin Ointment 1 application Route: Topical; Site: affected area; 17:00 Follow up: Response: No adverse reaction hb 16:21 Drug: Tylenol 1000 mg Route: PO; iw 17:10 Follow up: Response: No adverse reaction hb Disposition: 04/06/19 17:53 Discharged to Home. Impression: Fall due to bumping against object, Superficial injury of head, Strain of muscle, fascia and tendon at neck level, Strain of muscle and tendon of back wall of thorax. - Condition is Stable. - Discharge Instructions: Back Pain, Adult, Head Injury, Adult, Muscle Strain, Cervical Sprain, [id number], Back Pain, Adult, [id number], Muscle Strain, [id number], Head Injury, Adult, [id number]. - Prescriptions for Tylenol- Codeine #3 300-30 mg Oral Tablet - take 2 tablets by ORAL route every 6 hours As needed; 26 tablet. - Medication Reconciliation Form, Thank You Letter, Antibiotic Education, Prescription Opioid Use form. - Follow up: Private Physician; When: 2 - 3 days; Reason: Recheck today's complaints, Continuance of care, Re-evaluation by your physician. - Problem is new. - Symptoms have improved. Signatures: Dispatcher [employer] EDMaynor Ramirez MD MD cha Williams, Irene RN ALEXI Elle Sorto RN RN Corrections: (The following items were deleted from the chart) 18:53 17:53 04/06/2019 17:53 Discharged to Home. Impression: Fall due to bumping against hb object; Superficial injury of head; Strain of muscle, fascia and tendon at neck level; Strain of muscle and tendon of back wall of thorax. Condition is Stable. Discharge Instructions: Back Pain, Adult, Head Injury, Adult, Muscle Strain, Cervical Sprain, [id number], Back Pain, Adult, [id number]-[id number], Muscle Strain, Ftkn-es-[id number], Head Injury, Adult, [id number]-[id number]. Prescriptions for Tylenol-Codeine #3 300-30 mg Oral Tablet - take 2 tablets by ORAL route every 6 hours As needed; 26 tablet. and Forms are Medication Reconciliation Form, Thank You Letter, Antibiotic Education, Prescription Opioid Use. Follow up: Private Physician; When: 2 - 3 days; Reason: Recheck today's complaints, Continuance of care, Re-evaluation by your physician. Problem is new. Symptoms have improved. lor
--- NOTE | 2019-04-06 17:54 | ER ---
Nurse's Notes [facility] Name: Dee Maciel Age: 59 yrs Sex: Female : 1960 Arrival Date: 04/06/2019 Time: 15:04 Bed 27 Private MD: Diagnosis: Fall due to bumping against object;Superficial injury of head;Strain of muscle, fascia and tendon at neck level;Strain of muscle and tendon of back wall of thorax Presentation: 04/06 15:04 Presenting complaint: EMS states: Fall from standing, negative LOC. Small abrasion to hb right lower leg and right little finger, contusion to back of head. Pt reports feeling dizzy lately, does not know if fall today was from dizziness or mechanical. Care prior to arrival: None. Mechanism of Injury: Fall from standing position. Trauma event details: Injury occurred in the [facility], Injury occurred: in a public building. Injury occurred: April 06, 2019. 15:04 Acuity: ASAF 3 hb 15:04 Method Of Arrival: EMS: [facility] 15:10 Transition of care: patient was not received from another setting of care. Onset of hb symptoms was April 06, 2019. Risk Assessment: Do you want to hurt yourself or someone else? Patient reports no desire to harm self or others. Initial Sepsis Screen: Does the patient meet any 2 criteria? No. Patient's initial sepsis screen is negative. Does the patient have a suspected source of infection? No. Patient's initial sepsis screen is negative. Trauma Activation: Not Applicable Physician: ED Physician; Name: ; Notified At: ; Arrived At: Physician: General Surgeon; Name: ; Notified At: ; Arrived At: Physician: Radiology; Name: ; Notified At: ; Arrived At: Physician: Respiratory; Name: ; Notified At: ; Arrived At: Physician: Lab; Name: ; Notified At: ; Arrived At: Historical: - Allergies: 17:57 No Known Allergies; hb - Home Meds: 17:57 furosemide 40 mg Oral tab 1.5 tab once daily [Active]; gabapentin 100 mg Oral cap 2 hb caps nightly [Active]; glimepiride 1 mg Oral tab 1 tab once daily [Active]; lactulose 10 gram/15 mL (15 mL) Oral soln 30 mL twice a day [Active]; levothyroxine 200 mcg tab 1 tab once daily [Active]; midodrine 5 mg Oral tab 1 tabs twice a day [Active]; omeprazole 20 mg Oral cpDR 1 cap once daily [Active]; pioglitazone 15 mg Oral tab 1 tab once daily [Active]; sertraline 50 mg Oral tab 1 tab once daily [Active]; simvastatin 20 mg Oral tab 1 tab once daily [Active]; spironolactone 100 mg Oral tab 1 tab once daily [Active]; - PMHx: 17:57 Diabetes - NIDDM; Hypothyroidism; [place] liver; hb - PSHx: 17:57 paracentesis; hb - Immunization history:: Adult Immunizations. - Social history:: Smoking status: Patient/guardian denies using tobacco. - Immunization history: Last tetanus immunization: - up to date. - Family history:: not pertinent. - Ebola Screening: : No symptoms or risks identified at this time. Screenin:09 Abuse screen: Denies threats or abuse. Denies injuries from another. Tuberculosis hb screening: No symptoms or risk factors identified. 15:30 Nutritional screening: No deficits noted. Fall Risk None identified. hb Primary Survey: 15:07 NO uncontrolled hemorrhage observed. A: The patient is alert. Airway: patent, No hb supplemental oxygen in use on arrival. Breathing/Chest: Respiratory pattern: regular, Respiratory effort: spontaneous, unlabored, Chest inspection: symmetrical rise and fall of the chest. Circulation: Skin color: pink, Skin temperature: warm, dry. Disability Alert. Exposure/Environment: There is no evidence of uncontrolled external bleeding. Obvious injury(ies) are noted at this time: contusion to back of head, small abrasion to right lower leg and right little finger. 16:00 Reassessment Airway Airway Patent Breathing/Chest Respiratory pattern Regular hb Respiratory effort Spontaneous Unlabored Breath sounds Clear Chest inspection Symmetrical Circulation Color [place] Temperature Warm Dry Disability Alert. 17:00 Reassessment Airway Airway Patent Breathing/Chest Respiratory pattern Regular hb Respiratory effort Spontaneous Unlabored Chest inspection Symmetrical Circulation Color [place] Temperature Warm Dry Disability Alert. 18:00 Reassessment Airway Airway Patent Breathing/Chest Respiratory pattern Regular hb Respiratory effort Spontaneous Unlabored Chest inspection Symmetrical Circulation Color [place] Temperature Warm Dry Disability Alert. Secondary Survey: 15:10 HEENT: Head Other contusion to back of head. Gastrointestinal: No deficits noted. : hb No deficits noted. No signs and/or symptoms were reported regarding the genitourinary system. Musculoskeletal: No deficits noted. No signs and/or symptoms reported regarding the musculoskeletal system. Injury Description: abrasion to right vigil and right little finger, contusion to back of head. Assessment: 15:15 General: Appears in no apparent distress. Behavior is calm, cooperative. Pain: Denies hb pain. Neuro: Level of Consciousness is awake, alert, obeys commands, Oriented to person, place, time, situation. EENT: No signs and/or symptoms were reported regarding the EENT system. Cardiovascular: Capillary refill < 3 seconds Patient's skin is warm and dry. Respiratory: Airway is patent Respiratory effort is even, unlabored, Respiratory pattern is regular, symmetrical, Breath sounds are clear bilaterally. GI: No deficits noted. No signs and/or symptoms were reported involving the gastrointestinal system. : No deficits noted. No signs and/or symptoms were reported regarding the genitourinary system. Derm: Skin is pink, warm \T\ dry. Musculoskeletal: No signs and/or symptoms reported regarding the musculoskeletal system. Injury Description: contusion to back of head, abrasion to right vigil and right little finger. 16:00 Reassessment: Patient appears in no apparent distress at this time. No changes from hb previously documented assessment. Patient and/or family updated on plan of care and expected duration. Pain level reassessed. Patient is alert, oriented x 3, equal unlabored respirations, skin warm/dry/pink. 17:00 Reassessment: Patient appears in no apparent distress at this time. No changes from hb previously documented assessment. Patient and/or family updated on plan of care and expected duration. Pain level reassessed. Patient is alert, oriented x 3, equal unlabored respirations, skin warm/dry/pink. 18:00 Reassessment: Patient appears in no apparent distress at this time. No changes from hb previously documented assessment. Patient and/or family updated on plan of care and expected duration. Pain level reassessed. Patient is alert, oriented x 3, equal unlabored respirations, skin warm/dry/pink. Vital Signs: 15:08 BP 102 / 68; Pulse 80; Resp 16; Temp 98.2; Pulse Ox 95% on R/A; Pain 0/10; hb 16:00 BP 108 / 68; Pulse 78; Resp 15; Pulse Ox 99% on R/A; Pain 0/10; hb 17:00 BP 112 / 70; Pulse 75; Resp 14; Pulse Ox 99% on R/A; hb 18:00 BP 116 / 72; Pulse 66; Resp 15; Pulse Ox 100% on R/A; Pain 0/10; hb [place] Coma Score: 16:00 Eye Response: spontaneous(4). Verbal Response: oriented(5). Motor Response: obeys hb commands(6). Total: 15. Trauma Score (Adult): 15:08 Eye Response: spontaneous(1); Verbal Response: oriented(1); Motor Response: obeys hb commands(2); Systolic BP: > 89 mm Hg(4); Respiratory Rate: 10 to 29 per min(4); [place] Score: 15; Trauma Score: 12 16:00 Eye Response: spontaneous(1); Verbal Response: oriented(1); Motor Response: obeys hb commands(2); Systolic BP: > 89 mm Hg(4); Respiratory Rate: 10 to 29 per min(4); Evel[place] Score: 15; Trauma Score: 12 17:00 Eye Response: spontaneous(1); Verbal Response: oriented(1); Motor Response: obeys hb commands(2); Systolic BP: > 89 mm Hg(4); Respiratory Rate: 10 to 29 per min(4); Evel[place] Score: 15; Trauma Score: 12 18:00 Eye Response: spontaneous(1); Verbal Response: oriented(1); Motor Response: obeys hb commands(2); Systolic BP: > 89 mm Hg(4); Respiratory Rate: 10 to 29 per min(4); [place] Score: 15; Trauma Score: 12 ED Course: 15:04 Patient arrived in ED. hb 15:07 Triage completed. hb 15:07 Maynor Lo MD is Attending Physician. lor 15:10 Patient maintains SpO2 saturation greater than 95% on room air. Thermoregulation: warm hb blanket given to patient. 15:37 Elle Sorto, ALEXI is Primary Nurse. hb 18:00 Arm band placed on. hb 18:01 Patient has correct armband on for positive identification. Bed in low position. Call hb light in reach. Side rails up X 1. 18:15 No provider procedures requiring assistance completed. Patient did not have IV access hb during this emergency room visit. Administered Medications: 16:20 Drug: Neosporin Ointment 1 application Route: Topical; Site: affected area; iw 17:00 Follow up: Response: No adverse reaction hb 16:21 Drug: Tylenol 1000 mg Route: PO; iw 17:10 Follow up: Response: No adverse reaction hb Intake: 16:00 PO: 0ml; Total: 0ml. hb Output: 16:00 Urine: 0ml; Total: 0ml. hb Outcome: 17:53 Discharge ordered by . lor 18:02 Patient's length of stay in the Emergency Department was greater than 2 hours. awaiting hb radiology results and dispoPatient's length of stay extended due to 18:15 Discharged to home via wheelchair, with significant other. hb 18:15 Condition: stable 18:15 Discharge instructions given to patient, Instructed on discharge instructions, follow up and referral plans. medication usage, Demonstrated understanding of instructions, follow-up care, medications, Prescriptions given X 1. 18:53 Patient left the ED. hb Signatures: Mayonr Lo MD MD cha Williams, Irene, RN RN Elle Sunshine RN RN hb
[2019-04-07 05:34] LABS: Urine Blood NEGATIVE (NEG); Urine Glucose 2+ (NEG); Urine Protein NEGATIVE (NEG); Urine Specific Gravity 1.015 (1.005-1.030)
== END 2019-04-06 18:53 | disposition home or self-care (01) ==
LOC: ER 14:59
DX: S16.1XXA Strain of muscle, fascia and tendon at neck level, initial encounter (principal); S29.012A Strain of muscle and tendon of back wall of thorax, initial encounter; W18.00XA Striking against unspecified object with subsequent fall, initial encounter; Y93.01 Activity, walking, marching and hiking; Y92.9 Unspecified place or not applicable; E03.9 Hypothyroidism, unspecified; E11.9 Type 2 diabetes mellitus without complications
CPT/HCPCS: 70450; 71250; 72125; 81003; 87086; 87088; 99284

== ENCOUNTER 2019-04-15 10:32 | Emergency (ER) | payer OTHER ==
--- OUTSIDE RECORDS SUMMARY | 2019-04-15 10:38 | XMS REPORT | Clinical Summary ---
:1960 Author Organization [facility] Address [address] [place] [address] Care Team Providers Name Role Phone Art [...] Encounters Date Type Specialty Care Team Description 04/10/2019 Abstract Hepatology Shruti Ward MA 03/20/2019 Abstract Hepatology Nova García MA 03/18/2019 Documentation Hepatology Kimberlee Back RN 03/18/2019 Telephone Hepatology Shelia, PARA PROCEDURE Wayne E 02/19/2019 Anesthesia Event Terry Roberson MD [...] Sonny Sal follow up on ascites [place], POINT OF CARE SPECIALIST 02/13/2019 Orders Only Hepatology Sonny Sal Other ascites [place], POINT OF CARE SPECIALIST (Primary Dx) 02/12/2019 Documentation Hepatology Sonny Sal [place], POINT OF CARE SPECIALIST 02/11/2019 Telephone Hepatology Kimberlee Back, Appointment RN 02/06/2019 Abstract Hepatology Nova García, MA 02/04/2019 Abstract Hepatology Anali Reed RN 02/03/2019 Abstract Hepatology Nova García, MA 01/23/2019 Abstract Transplant Nova García, MA 01/20/2019 Documentation Hepatology Kristi Ma RN 01/16/2019 Office Visit Hepatology Dami Storm Other ascites (Primary Dx); MD Aylin Liver cirrhosis secondary to [place] (HCC); Sonny Sal Shortness of breath [place], POINT OF CARE SPECIALIST 11/23/2018 Orders Only General Internal Medicine 11/23/2018 [...] mellitus type 2 in obese (HCC) after 04/14/2018 Immunizations Name Dates Previously Given Next Due [...] RHYTHM STRIP - SCAN 12/13/2018 7:50 AM HORIZONTAL RESAW OPERATOR POCT-GLUCOSE METER Routine 11/24/2018 7:49 Results for this AM HORIZONTAL RESAW OPERATOR procedure are in the results section. CBC W/PLT COUNT & AUTO Routine 11/24/2018 4:27 Results for this DIFFERENTIAL AM HORIZONTAL RESAW OPERATOR procedure are in the results section. OSMOLALITY, SERUM Routine 11/24/2018 4:27 Results for this AM HORIZONTAL RESAW OPERATOR procedure are in the results section. PHOSPHORUS Routine 11/24/2018 4:27 Results for this AM HORIZONTAL RESAW OPERATOR procedure are in the results section. MAGNESIUM Routine 11/24/2018 4:27 Results for this AM HORIZONTAL RESAW OPERATOR procedure are in the results section. CALCIUM, IONIZED Routine 11/24/2018 4:27 Results for this AM HORIZONTAL RESAW OPERATOR procedure are in the results section. CBC W/PLT COUNT & AUTO Routine 11/24/2018 4:27 Results for this DIFFERENTIAL AM HORIZONTAL RESAW OPERATOR procedure are in the results section. COMPREHENSIVE Routine 11/24/2018 4:27 Results for this METABOLIC PANEL AM HORIZONTAL RESAW OPERATOR procedure are in the results section. US RENAL COMPLETE Routine 11/24/2018 3:20 Results for this AM HORIZONTAL RESAW OPERATOR procedure are in the results section. TROPONIN I Routine 11/23/2018 9:41 Results for this PM HORIZONTAL RESAW OPERATOR procedure are in the results section. ECG 12-LEAD Routine 11/23/2018 9:19 PM HORIZONTAL RESAW OPERATOR Procedure Note - Interface, External Ris In - 11/23/2018 9:22 PM HORIZONTAL RESAW OPERATOR Ventricular Rate 77 BPM Atrial Rate 77 BPM P-R Interval 172 ms QRS Duration 80 ms Q-T Interval 392 ms QTC Calculation(Bazett) 443 ms P Mchenry 44 degrees R Mchenry -47 degrees T Mchenry 50 degrees Normal sinus rhythm Left axis deviation Low voltage QRS Cannot rule out Anterior infarct , age undetermined Abnormal ECG No previous ECGs available ECG 12-LEAD STAT 11/23/2018 9:19 PM HORIZONTAL RESAW OPERATOR POCT-GLUCOSE METER Routine 11/23/2018 8:44 PM HORIZONTAL RESAW OPERATOR SODIUM, RANDOM URINE Routine 11/23/2018 7:01 PM HORIZONTAL RESAW OPERATOR PROTEIN, RANDOM URINE Routine 11/23/2018 7:01 PM HORIZONTAL RESAW OPERATOR POCT-GLUCOSE METER Routine 11/23/2018 5:17 PM HORIZONTAL RESAW OPERATOR POCT-GLUCOSE METER Routine 11/23/2018 2:01 PM HORIZONTAL RESAW OPERATOR US ABDOMEN LIMITED Routine 11/23/2018 1:05 PM HORIZONTAL RESAW OPERATOR US PARACENTESIS Routine 11/23/2018 12:48 PM HORIZONTAL RESAW OPERATOR URINALYSIS W/ MICROSCOPIC Routine 11/23/2018 10:58 AM HORIZONTAL RESAW OPERATOR CBC W/PLT COUNT & AUTO Routine 11/23/2018 8:40 AM HORIZONTAL RESAW OPERATOR Results for this DIFFERENTIAL procedure are in the results section. CBC W/PLT COUNT & AUTO Routine 11/23/2018 8:40 AM HORIZONTAL RESAW OPERATOR Results for this DIFFERENTIAL procedure are in the results section. POCT-GLUCOSE METER Routine 11/23/2018 7:02 AM HORIZONTAL RESAW OPERATOR ALPHA FETOPROTEIN (AFP), Routine 11/23/2018 4:53 AM HORIZONTAL RESAW OPERATOR Results for this TUMOR MARKER procedure are in the results section. HEPATITIS A PANEL Routine 11/23/2018 4:53 AM HORIZONTAL RESAW OPERATOR HEPATITIS B PANEL Routine 11/23/2018 4:53 AM HORIZONTAL RESAW OPERATOR HEPATITIS C ANTIBODY Routine 11/23/2018 4:53 AM HORIZONTAL RESAW OPERATOR ACTIN (SMOOTH MUSCLE) Routine 11/23/2018 4:53 AM HORIZONTAL RESAW OPERATOR Results for this ANTIBODY, IGG procedure are in the results section. ANTI-MITOCHONDRIAL AB, Routine 11/23/2018 4:53 AM HORIZONTAL RESAW OPERATOR REFLEX TO TITER [id number]\\, SERUM Routine 11/23/2018 4:53 AM HORIZONTAL RESAW OPERATOR CERULOPLASMIN Routine 11/23/2018 4:53 AM HORIZONTAL RESAW OPERATOR FERRITIN Routine 11/23/2018 4:53 AM HORIZONTAL RESAW OPERATOR IRON, TIBC, % SAT. (WITHOUT Routine 11/23/2018 4:53 AM HORIZONTAL RESAW OPERATOR Results for this FERRITIN) procedure are in the results section. COMPREHENSIVE METABOLIC Routine 11/23/2018 4:53 AM HORIZONTAL RESAW OPERATOR Results for this PANEL procedure are in the results section. PT/APTT Routine 11/22/2018 11:31 PM HORIZONTAL RESAW OPERATOR COMPREHENSIVE METABOLIC Routine 11/22/2018 11:31 PM HORIZONTAL RESAW OPERATOR Results for this PANEL procedure are in the results section. POCT-GLUCOSE METER Routine 11/22/2018 8:52 PM HORIZONTAL RESAW OPERATOR after 04/14/2018 Results POC-Glucose meter (02/25/2019 8:13 AM CDT)Only the most recent of33 resultswithin the time period is included. POC-Glucose Meter 213 (H)Comment: TESTED AT 70 - 110 mg/dL [address] [address] Specimen Blood Performing Organization Address [facility] Phone Number [address] [address] CENTER Hepatic function panel (02/25/2019 6:00 AM CDT)Only the most recent of8 resultswithin the time period is included. Protein, Total 5.7 (L) 6.0 - 8.3 gm/dL [facility] Albumin 4.2 3.5 - 5.0 g/dL [facility] Total Bilirubin 1.6 (H) 0.2 - 1.2 mg/dL [facility] Bilirubin, Direct 0.8 (H) 0.1 - 0.5 mg/dL [facility] Alkaline Phosphatase 95 40 - 150 U/L [facility] AST 71 (H) 5 - 34 U/L [facility] ALT 68 (H) 6 - 55 U/L [facility] Specimen Blood Performing Organization Address City/[facility] Phone Number [address] [place] [address] CENTER Basic Metabolic Panel (02/25/2019 6:00 AM CDT)Only the most recent of6 resultswithin the time period is included. Sodium 132 (L) 136 - 145 meq/L [facility] Potassium 4.4 3.5 - 5.1 meq/L [facility] Chloride 100 98 - 107 meq/L [facility] CO2 25 22 - 29 meq/L [facility] BUN 53 (H) 7 - 21 mg/dL [facility] Creatinine 1.80 (H) 0.57 - 1.25 mg/dL [facility] Glucose 211 (H) 70 - 105 mg/dL [facility] Calcium 9.0 8.4 - 10.2 mg/dL [facility] EGFR 29Comment: ESTIMATED GFR IS mL/min/1.73 sq m [facility] NOT ACCURATE [facility] CLEARANCE IN PREDICTING GLOMERULAR FILTRATION RATE. ESTIMATED GFR IS NOT APPLICABLE FOR DIALYSIS PATIENTS. Specimen Blood Performing Organization Address City/State/Zipcode Phone Number [address] [address] CENTER US paracentesis (02/24/2019 4:41 PM CDT)Only the most recent of6 resultswithin the time period is included. Specimen Narrative Performed At FINAL REPORT [employer] PROCEDURE: Ultrasound-guided paracentesis. INDICATION: 59-year-old woman with ascites. DESCRIPTION: After obtaining informed written consent, ultrasound scan of the abdomen identified ascites in the right lower quadrant. The overlying skin was prepped and draped in the usual, sterile fashion and local 2% lidocaine anesthesia was administered. A 5 Marshallese catheter was advanced into the peritoneal cavity and 6000 cc of serous fluid was removed. The catheter was removed without immediate complication. Samples were sent for analysis. IMPRESSION: Uncomplicated ultrasound-guided paracentesis with 6000 cc fluid removed. Signed: Antwon Bose MD Report Verified Date/Time:02/24/2019 16:42:07 Reading Location: [facility] [id number] Ultrasound Reading Room Procedure Note Interface, External Ris In - 02/24/2019 4:44 PM CDT FINAL REPORT PROCEDURE: Ultrasound-guided paracentesis. INDICATION: 59-year-old woman with ascites. DESCRIPTION: After obtaining informed written consent, ultrasound scan of the abdomen identified ascites in the right lower quadrant. The overlying skin was prepped and draped in the usual, sterile fashion and local 2% lidocaine anesthesia was administered. A 5 Marshallese catheter was advanced into the peritoneal cavity and 6000 cc of serous fluid was removed. The catheter was removed without immediate complication. Samples were sent for analysis. IMPRESSION: Uncomplicated ultrasound-guided paracentesis with 6000 cc fluid removed. Signed: Antwon Bose MD Report Verified Date/Time: 02/24/2019 16:42:07 Reading Location: [facility] [id number] Ultrasound Reading Room Performing Organization Address City/[facility] Phone Number [facility] Body fluid culture + gram stain (02/24/2019 4:09 PM CDT)Only the most recent of4 resultswithin the time period is included. Result No growth [facility] Gram Stain Result <1+ White blood cells seen [facility] Gram Stain Result No organisms seen [facility] Specimen Body Fluid Performing Organization Address City/[facility]/Zipcode Phone Number [address] [address] [phone] CENTER Body fluid cell count with differential (02/24/2019 4:09 PM CDT)Only the most recent of5 resultswithin the time period is included. Appearance Hazy (A) Clear [facility] Color Straw Colorless, Straw [facility] RBCs 4,000 (H) <=1 /cu mm [facility] Adjusted WBC Count 140 (H) <=5 /cu mm [facility] Lining Cells 1 <=1 /cu mm [facility] % Segs 1 % [facility] % Lymphs 30 % [facility] % Monos 69 % [facility] % Eos 0 % [facility] % Baso 0 % [facility] Container Body Fluid EDTA Tube [facility] Specimen Body Fluid Performing Organization Address City/[facility]/Zipcode Phone Number [address] [address] [phone] CENTER aPTT (02/24/2019 11:18 AM CDT)Only the most recent of2 resultswithin the time period is included. PTT 32.5 22.5 - 36.0 seconds [facility] Specimen Blood Performing Organization Address City/[facility] Phone Number [address] [address] CENTER Prothrombin time/INR (02/24/2019 11:18 AM CDT)Only the most recent of5 resultswithin the time period is included. Protime 14.3 11.7 - 14.7 seconds [facility] INR 1.1 <=5.9 [facility] Specimen Blood Narrative Performed At RECOMMENDED COUMADIN/WARFARIN INR THERAPY [facility] RANGES STANDARD DOSE: 2.0 - 3.0 Includes: PROPHYLAXIS for venous thrombosis, systemic embolization; TREATMENT for venous thrombosis and/or pulmonary embolus. HIGH RISK: Target INR is 2.5-3.5 for patients with mechanical heart valves. Performing Organization Address City/State/[facility] Phone Number [address] [address] CENTER Calcium, Ionized (02/24/2019 4:46 AM CDT)Only the most recent of7 resultswithin the time period is included. Calcium, Ion 1.08 (L) 1.12 - 1.27 mmol/L [facility] pH, Blood 7.38 [facility] Specimen Blood Performing Organization Address City/State/Zipcode Phone Number [facility] [address] [place] [address] CENTER CBC with platelet count + automated diff (02/24/2019 4:46 AM CDT)Only the most recent of10 resultswithin the time period is included. WBC 5.9 3.5 - 10.5 K/L [facility] RBC 3.00 (L) 3.93 - 5.22 M/L [facility] Hemoglobin 8.5 (L) 11.2 - 15.7 GM/DL [facility] Hematocrit 25.3 (L) 34.1 - 44.9 % [facility] MCV 84.3 79.4 - 94.8 fL [facility] MCH 28.3 25.6 - 32.2 pg [facility] MCHC 33.6 32.2 - 35.5 GM/DL [facility] RDW 14.8 (H) 11.7 - 14.4 % [facility] Platelets 146 (L) 150 - 450 K/CU MM [facility] MPV 10.1 9.4 - 12.3 fL [facility] nRBC 0 0 - 0 /100 WBC [facility] % Neutros 67 % [facility] % Lymphs 16 % [facility] % Monos 10 % [facility] % Eos 6 % [facility] % Baso 1 % [facility] # Neutros 3.94 1.56 - 6.13 K/L [facility] # Lymphs 0.96 (L) 1.18 - 3.74 K/L [facility] # Monos 0.57 (H) 0.24 - 0.36 K/L [facility] # Eos 0.37 (H) 0.04 - 0.36 K/L [facility] # Baso 0.03 0.01 - 0.08 K/L [facility] Immature Granulocytes-Relative 0 0 - 1 % [facility] Specimen Blood Performing Organization Address City/[facility] Phone Number [address] [address] [place] Phosphorus (02/24/2019 4:46 AM CDT)Only the most recent of7 resultswithin the time period is included. Phosphorus 2.1 (L) 2.3 - 4.7 mg/dL [facility] Specimen Blood Performing Organization Address City/[facility] Phone Number [address] [address] [place] Magnesium (02/24/2019 4:46 AM CDT)Only the most recent of9 resultswithin the time period is included. Magnesium 2.3 1.6 - 2.6 mg/dL [facility] Specimen Blood Performing Organization Address City/[facility]/Zipcode Phone Number [address] [address] CENTER Comprehensive metabolic panel (02/24/2019 4:46 AM CDT)Only the most recent of9 resultswithin the time period is included. Protein, Total 5.5 (L) 6.0 - 8.3 gm/dL [facility] Albumin 3.8 3.5 - 5.0 g/dL [facility] Alkaline Phosphatase 125 40 - 150 U/L [facility] Total Bilirubin 0.9 0.2 - 1.2 mg/dL [facility] Sodium 130 (L) 136 - 145 meq/L [facility] Potassium 4.0 3.5 - 5.1 meq/L [facility] Chloride 99 98 - 107 meq/L [facility] CO2 23 22 - 29 meq/L [facility] BUN 51 (H) 7 - 21 mg/dL [facility] Creatinine 2.07 (H) 0.57 - 1.25 mg/dL [facility] Glucose 320 (H) 70 - 105 mg/dL [facility] Calcium 8.7 8.4 - 10.2 mg/dL [facility] AST 111 (H) 5 - 34 U/L [facility] ALT 98 (H) 6 - 55 U/L [facility] EGFR 24Comment: ESTIMATED GFR mL/min/1.73 sq m [facility] IS NOT ACCURATE [facility] CREATININE CLEARANCE IN PREDICTING GLOMERULAR FILTRATION RATE. ESTIMATED GFR IS NOT APPLICABLE FOR DIALYSIS PATIENTS. Specimen Blood Performing Organization Address City/State/Zipcode Phone Number [facility] [address] [place] [address] [phone] CENTER XR chest 1 view portable / bedside (02/22/2019 12:14 PM CDT) Specimen Narrative Performed At FINAL REPORT [employer] INDICATION: cough COMPARISON: None. TECHNIQUE: Chest radiograph, single view, portable technique. FINDINGS / IMPRESSION: No pneumonia is demonstrated. There is marked elevation of the right hemidiaphragm. Heart shadow is prominent which may be related to portable technique. No pneumothorax or pleural effusion is demonstrated. Osseous structures unremarkable. Signed: Donnie Carrera MD Report Verified Date/Time:02/22/2019 12:22:24 Reading Location: [facility] [id number] Consult Reading Room Procedure Note Interface, External [...] Report Verified Date/Time: 02/22/2019 12:22:24 Reading Location: [facility] B1 C013W Consult Reading Room Performing Organization Address City/State/Zipcode Phone Number [facility] Electrolytes (02/20/2019 6:41 PM CDT) Sodium 132 (L) 136 - 145 meq/L [facility] Potassium 4.8 3.5 - 5.1 meq/L [facility] Chloride 103 98 - 107 meq/L [facility] CO2 20 (L) 22 - 29 meq/L [facility] Specimen Blood Narrative Performed At Please draw [address] Dr[address] Quiroz [facility] at [phone] with results. Call [phone] Performing Organization Address City/State/Zipcode Phone Number [facility] [address] [place] [address] [phone] CENTER TRANSFUSION SERVICE REPORT - SCAN (02/20/2019 [...] and a bleeding placement of a 10 Marshallese sheath from the right hepatic vein to [...] 1 L of yellow fluid. The 5 Marshallese needle/catheter was inserted with real-time ultrasound guidance into the peritoneal cavity in the right lateral abdomen following sterile preparation. Following this, the sheath catheter was removed. CONCLUSION: Successful TIPS and paracentesis. Signed: Yulia Kaba MD Report Verified Date/Time:02/20/2019 09:29:18 Reading Location: [place] [address] Angio Body Reading Room Procedure Note Interface, [...] and a bleeding placement of a 10 Marshallese sheath from the right hepatic vein to [...] 1 L of yellow fluid. The 5 Marshallese needle/catheter was inserted with real-time ultrasound guidance into the peritoneal cavity in the right lateral abdomen following sterile preparation. Following this, the sheath catheter was removed. CONCLUSION: Successful TIPS and paracentesis. Signed: Yulia Kaba MD Report Verified Date/Time: 02/20/2019 09:29:18 Reading Location: [facility] P048 Angio Body Reading Room Performing Organization Address City/State/Zipcode Phone Number [facility] CT abdomen without IV contrast (02/19/2019 12:22 PM CDT) Specimen Narrative Performed At FINAL REPORT [facility] ABDOMINAL CT DATED 02/19/2019 CLINICAL INFORMATION:Cirrhosis or [...] MD Report Verified Date/Time:02/19/2019 12:33:54 Reading Location: [facility] [id number] CT Body Reading Room Procedure Note [...] Report Verified Date/Time: 02/19/2019 12:33:54 Reading Location: [address] Body Reading Room Performing Organization Address City/[facility] Phone Number [facility] ABOR[address], manual (02/19/2019 6:15 AM CDT) ABO Grouping A [facility] Rh Factor POS [facility] Specimen Blood Performing Organization Address [facility] Phone Number [address] [address] Type and screen, automated (02/19/2019 4:55 AM CDT) ABO/RH AUTOMATED (BEAKER) A POSITIVE [facility] Ab Scrn NEGATIVE [facility] Specimen Blood Performing Organization Address [facility]/Zipcode Phone Number [address] [address] Protein, random urine (02/18/2019 4:07 AM CDT)Only the most recent of2 resultswithin the time period is included. Protein, Urine 12 0 - 14 mg/dL [facility] Specimen Urine Performing Organization Address City/[facility]/Zipcode Phone Number [facility] [address] [place], [place] [phone] [place] Creatinine, random urine (02/18/2019 4:07 AM CDT) Creatinine, Ur 115.9 mg/dL [facility] Specimen Urine Narrative Performed At Reference Range: No Normals [facility] Performing Organization Address City/[facility] Phone Number [facility] [address] [place] [address] [place] Urinalysis w/Microscopic (02/18/2019 4:07 AM CDT)Only the most recent of2 resultswithin the time period is included. Color, UA Yellow [facility] Clarity, UA Clear [facility] Specific [place], UA 1.013 1.001 - 1.035 [facility] pH, UA 5.0 5.0 - 8.0 [facility] Protein, UA Negative Negative [facility] Glucose, UA 100 mg/dL (A) Negative [facility] Ketones, UA Negative Negative [facility] Bilirubin, UA Negative Negative [facility] Blood, UA Negative Negative [facility] Nitrite, UA Negative Negative [facility] Leukocytes, UA Large (A) Negative [facility] Urobilinogen, UA 0.2 0.2 - 1.0 mg/dL [facility] RBC, UA 2 /HPF [facility] WBC, UA 24 /HPF [facility] Squam Epithel, UA 14 /HPF [facility] Hyaline Casts, UA 3 /LPF [facility] Specimen Source Urine, Voided [facility] Specimen Urine Performing Organization Address City/State/Zipcode Phone Number [facility] [address] [place] [address] CENTER US abdominal with doppler (02/18/2019 2:35 AM CDT) Specimen Narrative Performed At FINAL REPORT [facility] INDICATION: TIPS workup, assess for vessels patency [...] MD Report Verified Date/Time:02/18/2019 03:48:21 Reading Location: [facility] C013 Neuro Reading Room Procedure Note Interface, External [...] Report Verified Date/Time: 02/18/2019 03:48:21 Reading Location: [facility] B1 C013V Neuro Reading Room Performing Organization Address City/State/Zipcode Phone Number [facility] ECHOCARDIOGRAM REPORT - SCAN (02/17/2019 9:24 PM CDT) Narrative Performed At Limited 2D Echocardiogram (02/17/2019 4:24 PM CDT) Ejection Fraction [facility] Specimen Narrative Performed At Transthoracic Echocardiography Report (TTE) [facility] Demographics Patient Alma Rossi of Study02/17/2019 KATE Female Visit [id number] Unknown Room [id number] Number Date of 1960Referring Physician ByronMD Age 59 year(s)Lump Roller Emir Chahal [facility] Interpreting Guillermo Trammell MD Physician Procedure Type [...] Study 02/17/2019 KATE Gender Female Visit Number [id number] Race Unknown Room Number 2043 Number Date of 1960 Referring Sheri Paulson Physician Age 59 year(s) Lump Roller Emir Chahal [facility] Interpreting Guillermo Trammell MD Physician Procedure Type [...] LVOT Area: 2.84 cm^2 Performing Organization Address City/[facility] Phone Number [facility] Blood Culture - Routine (Right Venipuncture) (02/16/2019 5:43 PM CDT)Only the most recent of2 resultswithin the time period is included. Result No growth in 5 days [facility] Specimen Blood Performing Organization Address City/[facility]/Zipcode Phone Number [facility] [address] [place] [address] CENTER Urinalysis w/Microscopic + Reflex to Culture (02/16/2019 5:02 AM CDT) Color, UA Yellow [facility] Clarity, UA Hazy [facility] Specific [place], UA 1.021 1.001 - 1.035 [facility] pH, UA 5.5 5.0 - 8.0 [facility] Protein, UA 30 mg/dL (A) Negative [facility] Glucose, UA Negative Negative [facility] [facility] Ketones, UA Negative Negative [facility] Bilirubin, UA Negative Negative [facility] Blood, UA Negative Negative [facility] Nitrite, UA Negative Negative [facility] Leukocytes, UA Large (A) Negative [facility] Urobilinogen, UA 2.0 (H) 0.2 - 1.0 mg/dL [facility] RBC, UA 7 /HPF [facility] WBC, UA 7 /HPF [facility] Mucus Rare [facility] Squam Epithel, UA 6 /HPF [facility] Hyaline Casts, UA 40 /LPF [facility] Specimen Source [facility] Specimen Urine Performing Organization Address City/[facility]/Zipcode Phone Number [address] [address] [phone] CENTER PT/aPTT (02/16/2019 4:56 AM CDT)Only the most recent of2 resultswithin the time period is included. Protime 13.4 11.7 - 14.7 seconds [facility] INR 1.0 <=5.9 [facility] PTT 30.9 22.5 - 36.0 seconds [facility] Specimen Blood Narrative Performed At RECOMMENDED COUMADIN/WARFARIN INR THERAPY [facility] RANGES STANDARD DOSE: 2.0 - 3.0 Includes: PROPHYLAXIS for venous thrombosis, systemic embolization; TREATMENT for venous thrombosis and/or pulmonary embolus. HIGH RISK: Target INR is 2.5-3.5 for patients with mechanical heart valves. Performing Organization Address City/[facility]/Zipcode Phone Number [facility] [address] [place] [phone] CENTER RHYTHM STRIP - SCAN (01/21/2019 8:20 AM CDT)Only the most recent of2 resultswithin the time period is included. Narrative Performed At Alpha fetoprotein (AFP), tumor marker (01/16/2019 2:25 PM CDT)Only the most recent of2 resultswithin the time period is included. Alpha-Fetoprotein 3.4 <10.0 ng/mL [facility] Specimen Blood Performing Organization Address City/State/Zipcode Phone Number [facility] [address] [place] [address] [phone] [place] Osmolality, serum (11/24/2018 4:27 AM HORIZONTAL RESAW OPERATOR) Osmolality Serum 301 (H) 275 - 295 mOsm/kg [facility] Specimen Blood Performing Organization Address City/State/Zipcode Phone Number [facility] [address] [place] [address] [place] US renal complete (11/24/2018 3:20 AM HORIZONTAL RESAW OPERATOR) Specimen Narrative Performed At FINAL REPORT GE RIS U/S, RENAL, COMPLETE CLINICAL INDICATION:HEMALATHA/CKD COMPARISON: None [...] MD Report Verified Date/Time:11/24/2018 03:59:04 Reading Location: [address] Transitional Reading Room Procedure Note Interface, External Ris In - 11/24/2018 4:01 AM HORIZONTAL RESAW OPERATOR FINAL REPORT U/S, RENAL, COMPLETE CLINICAL INDICATION: [...] Report Verified Date/Time: 11/24/2018 03:59:04 Reading Location: [id number] Transitional Reading Room Performing Organization Address City/[facility] Phone Number GE RIS Troponin I (11/23/2018 9:41 PM HORIZONTAL RESAW OPERATOR) Troponin I <0.01 0.00 - 0.03 ng/mL [facility] Specimen Blood Narrative Performed At Troponin I (TnI) levels must be interpreted [facility] in the context of the [...] tachyarrhythmia. Performing Organization Address City/State/Zipcode Phone Number [facility] [address] [place] [address] CENTER ECG 12 lead (11/23/2018 9:19 PM HORIZONTAL RESAW OPERATOR) Specimen Narrative Performed At Ventricular Rate 77 BPM GE MUSE Atrial Rate 77 BPM P-R Interval 172 ms QRS Duration 80 ms Q-T Interval 392 ms QTC Calculation(Bazett) 443 ms P Mchenry 44 degrees R Mchenry -47 degrees T Mchenry 50 degrees Normal sinus rhythm Left axis deviation Low voltage QRS Cannot rule out Anterior infarct , age undetermined Abnormal ECG No previous ECGs available Confirmed by NAVARIJO, MD, GUILLERMO P ([id number]) on 11/24/2018 6:45:48 AM Procedure Note Interface, External Ris In - 11/24/2018 6:45 AM HORIZONTAL RESAW OPERATOR Ventricular Rate 77 BPM Atrial Rate 77 BPM P-R Interval 172 ms QRS Duration 80 ms Q-T Interval 392 ms QTC Calculation(Bazett) 443 ms P Mchenry 44 degrees R Mchenry -47 degrees T Mchenry 50 degrees Normal sinus rhythm Left axis deviation Low voltage QRS Cannot rule out Anterior infarct , age undetermined Abnormal ECG No previous ECGs available Confirmed by MD TRAMMELL JOSEPH P ([id number]) on 11/24/2018 6:45:48 AM Performing Organization Address City/State/Zipcode Phone Number [facility] Sodium, random urine (11/23/2018 7:01 PM HORIZONTAL RESAW OPERATOR) Sodium Urine <20 meq/L [facility] Specimen Urine Narrative Performed At Reference Range: No Normals [facility] Performing Organization Address City/State/[place] [address] CENTER US abdomen limited (11/23/2018 1:05 PM HORIZONTAL RESAW OPERATOR) Specimen Narrative Performed At FINAL REPORT [facility] ULTRASOUND RIGHT UPPER QUADRANT OF THE ABDOMEN [...] MD Report Verified Date/Time:11/23/2018 13:29:13 Reading Location: [address] Transitional Reading Room Procedure Note Interface, External Ris In - 11/23/2018 1:31 PM HORIZONTAL RESAW OPERATOR FINAL REPORT ULTRASOUND RIGHT UPPER QUADRANT OF [...] Report Verified Date/Time: 11/23/2018 13:29:13 Reading Location: [address] Transitional Reading Room Performing Organization Address City/State/Zipcode Phone Number [facility] Anti-Mitochondrial Ab, reflex to titer (11/23/2018 4:53 AM HORIZONTAL RESAW OPERATOR) Scan Result [facility] Specimen Blood Narrative Performed At Performing Organization Address City/State/Zipcode Phone Number [place] [address] [facility] [address] [facility] Iron, TIBC, % sat. (without ferritin) (11/23/2018 4:53 AM HORIZONTAL RESAW OPERATOR) Iron 46.0 40.0 - 160.0 ug/dL [facility] TIBC 269 250 - 450 ug/dL [facility] Iron % Saturation 17 (L) 20 - 55 % [facility] Specimen Blood Performing Organization Address City/[facility] Phone Number [address] [address] [place] Hepatitis B Panel (11/23/2018 4:53 AM HORIZONTAL RESAW OPERATOR) Hep B Core Total Ab NON-REACTIVE Nonreactive [facility] Hep B S Ab <8.0 <8.0 mIU/mL [facility] hepatitis B Surface Ag NON-REACTIVE Nonreactive [facility] Specimen Blood Performing Organization Address [facility] Phone Number [address] [address] [place] Hepatitis A Panel (11/23/2018 4:53 AM HORIZONTAL RESAW OPERATOR) Hep A IgM HEPATITIS A TEST NEGATIVE Nonreactive [facility] Hep A IgG Nonreactive Nonreactive [facility] Specimen Blood Performing Organization Address City/[facility] Phone Number [address] [address] [place] Hepatitis C antibody (11/23/2018 4:53 AM HORIZONTAL RESAW OPERATOR) Hepatitis C Ab NON-REACTIVE Nonreactive [facility] Specimen Blood Performing Organization Address [facility] Phone Number [address] [address] [phone] [place] Actin (Smooth Muscle) Antibody, IgG (11/23/2018 4:53 AM HORIZONTAL RESAW OPERATOR) Anti-Smooth Muscle Ab <20 See Note: U [...] Specimen Blood Narrative Performed At Performing Lab [facility] [address] [address] I Isa ENNIS, PhD, LINA Performing Organization Address [facility] Phone Number [employer] [place] [address] [facility]POR[facility] [address] [facility] [id number] (11/23/2018 4:53 AM HORIZONTAL RESAW OPERATOR) A-1 Antitrypsin 202.70 (H) 90.00 - 200.00 mg/dL [facility] Specimen Blood Performing Organization Address [facility] Phone Number [facility] [address] [place] [address] CENTER Ceruloplasmin (11/23/2018 4:53 AM HORIZONTAL RESAW OPERATOR) Ceruloplasmin 28 18 - 53 mg/dL [facility] Comment: Adults:Males: 18-36 mg/dL Females: 18-53 mg/dL Pediatrics:Males (mg/dL)Females (mg/dL) 0-30 Days 8-25 3-28 31 Days-11 Month [id number] 1-3 [id number] 4-6 [id number] 7-9 [id number] 10-12 [id number] 13-15 [id number] 16-18 [id number] The pediatric ranges are derived from the following criteria: Sacha SJ, Juwan BARONE, Poornima Liu et al Pediatric reference ranges for [id number] and ceruloplasmin. Clin. Chem 1997; 43:S1999 Pediatric Reference Ranges, 2nd., [place] Sacha,et al. editors. [employer], [place], [place] 1997. Specimen Blood Narrative Performed At Performing Lab [facility] *SPL [facility], [id number] [place] [phone] Noe Rosario MD, PhD Performing Organization Address City/State/Zipcode Phone Number [facility], [place] [address] [facility] [address] [facility] Ferritin (11/23/2018 4:53 AM HORIZONTAL RESAW OPERATOR) Ferritin 52 5 - 275 ng/mL [facility] Specimen Blood Performing Organization Address City/State/Zipcode Phone Number [facility] [address] [place] [address] CENTER after 04/14/2018 Insurance Payer Benefit Plan / Group Subscriber ID Type Phone Address ARACELIKAILEER ANISA LINCOLN xxxxxxxxxxx Advance Directives For more information, please contact:[address] [phone] Code Status Date Activated Date Inactivated Comments Full Code 02/16/2019 1:25 AM 02/25/2019 12:25 PM This code status was determined by: Patient Full Code 11/22/2018 10:01 PM 02/16/2019 12:02 AM This code status was determined by: Patient
--- OUTSIDE RECORDS SUMMARY | 2019-04-15 10:41 | XMS REPORT ---
:1960 [facility] Address [address] [place] [address] Dr. Melton [address] [place] [id number] Care Team Providers Name Role Phone MOJGAN [...] Value Reference Range Comments CULTURE (BEAKER) (test krqa=8465) No growth GRAM STAIN RESULT (BEAKER) (test acbz=7276) <1+ White blood cells seen GRAM STAIN RESULT (BEAKER) (test txjb=47419) No organisms seen BODY FLUID CULTURE + GRAM [id number] 14:06:00 Test Item Value Reference Range Comments CULTURE (BEAKER) (test oakk=8552) No growth GRAM STAIN RESULT (BEAKER) (test No White blood cells seen cyyx=3018) GRAM STAIN RESULT (BEAKER) (test No organisms seen brbz=32551) BASIC METABOLIC [id number] 08:41:00 Test Item Value Reference Range Comments SODIUM (BEAKER) (test 132 meq/L 136-145 rotu=702) POTASSIUM (BEAKER) (test 4.4 meq/L 3.5-5.1 dgmv=595) CHLORIDE (BEAKER) (test 100 meq/L 98-107 wqdu=334) CO2 (BEAKER) (test 25 meq/L 22-29 rcli=960) BLOOD UREA NITROGEN 53 mg/dL 7-21 (BEAKER) (test ldrw=357) CREATININE (BEAKER) (test 1.80 mg/dL 0.57-1.25 sfbd=629) GLUCOSE RANDOM (BEAKER) 211 mg/dL 70-105 (test wcnn=242) CALCIUM (BEAKER) (test 9.0 mg/dL 8.4-10.2 hhht=993) EGFR (BEAKER) (test 29 mL/min/1.73 sq m ESTIMATED GFR IS NOT tqzr=8152) ACCURATE CREATININE CLEARANCE IN PREDICTING GLOMERULAR FILTRATION RATE. ESTIMATED GFR IS NOT APPLICABLE FOR DIALYSIS PATIENTS. POCT-GLUCOSE [id number] 08:16:00 Test Item Value Reference Range Comments POC-GLUCOSE METER (BEAKER) 213 mg/dL 70-110 TESTED AT [facility] [address] [place] [address] (test frlq=0367) [facility] [address] HEPATIC FUNCTION [id number] 06:43:00 Test Item Value Reference Range Comments TOTAL PROTEIN (BEAKER) (test whnv=083) 5.7 gm/dL 6.0-8.3 ALBUMIN (BEAKER) (test bduf=9012) 4.2 g/dL 3.5-5.0 BILIRUBIN TOTAL (BEAKER) (test pyni=699) 1.6 mg/dL 0.2-1.2 BILIRUBIN DIRECT (BEAKER) (test ywon=543) 0.8 mg/dL 0.1-0.5 ALKALINE PHOSPHATASE (BEAKER) (test bbjr=209) 95 U/L 40-150 AST (SGOT) (BEAKER) (test zfnd=412) 71 U/L 5-34 ALT (SGPT) (BEAKER) (test inwt=155) 68 U/L 6-55 POCT-GLUCOSE [id number] 22:00:00 Test Item Value Reference Range Comments POC-GLUCOSE METER (BEAKER) 341 mg/dL 70-110 Notified ALEXI ENNIS/TESTED AT [facility] (test cfun=2042) [address] [place] [address] BODY FLUID CELL COUNT WITH [id number] 20:00:00 Test Item Value Reference Range Comments APPEARANCE FLUID (BEAKER) (test yrno=738) Hazy Clear COLOR FLUID (BEAKER) (test jwuy=645) Straw Colorless, Straw RBC FLUID (BEAKER) (test kapn=890) 4000 /cu mm <=1 ADJUSTED WBC FLUID (BEAKER) (test mghk=6519) 140 /cu mm <=5 LINING CELLS (BEAKER) (test ojpn=0148) 1 /cu mm <=1 NEUTROPHILS FLUID (BEAKER) (test djoz=9680) 1 % LYMPHS FLUID (BEAKER) (test ywhx=034) 30 % MONO/MACROPHAGE FLUID (BEAKER) (test cseu=640) 69 % EOSINOPHILS FLUID (BEAKER) (test rplg=598) 0 % BASO FLUID (BEAKER) (test ejxr=621) 0 % CONTAINER BODY FLUID (BEAKER) (test fldc=0052) EDTA Tube U/S, [id number] 16:42:00Reason for exam:->ascites limited 6 litersFINAL REPORT PROCEDURE: Ultrasound-guided paracentesis. INDICATION: 59-year-old woman with ascites. DESCRIPTION: After obtaining informed written consent, ultrasound scan of the abdomen identified ascites in the right lower quadrant. The overlying skin was prepped and draped in the usual, sterile fashion and local 2% lidocaine anesthesia was administered. A 5 Irish catheter was advanced into the peritoneal cavity and 6000 cc of serous fluid was removed. The catheter was removed without immediate complication. Samples were sent for analysis. IMPRESSION:Uncomplicated ultrasound-guided paracentesis with 6000 cc fluid removed. Signed: Atnwon Bose MDReport Verified Date/Time: 02/24/2019 16:42:07 Reading Location: [address] Ultrasound Reading Room POCT-GLUCOSE [id number] 13:07:00 Test Item Value Reference Range Comments POC-GLUCOSE METER (BEAKER) 290 mg/dL 70-110 TESTED AT [address] (test cmnk=2851) [facility] [address] PROTHROMBIN [id number] 12:01:00 Test Item Value Reference Range Comments PROTIME (BEAKER) (test lekl=370) 14.3 seconds 11.7-14.7 INR (BEAKER) (test mzct=450) 1.1 <=5.9 RECOMMENDED COUMADIN/WARFARIN INR THERAPY RANGESSTANDARD DOSE: 2.0 - 3.0 Includes: PROPHYLAXIS forvenous thrombosis, systemic embolization; TREATMENT for venous thrombosis and/or pulmonary embolus.HIGH RISK: Target INR is 2.5-3.5 for patients with mechanical heart valves.[id number] 12:01:00 Test Item Value Reference Range Comments PARTIAL THROMBOPLASTIN TIME (BEAKER) (test 32.5 seconds 22.5-36.0 vpjm=252) POCT-GLUCOSE [id number] 08:39:00 Test Item Value Reference Range Comments POC-GLUCOSE METER (BEAKER) 279 mg/dL 70-110 TESTED AT [facility] [address] [facility] (test ykqk=6298) [place] [address] CALCIUM, [id number] 07:04:00 Test Item Value Reference Range Comments CALCIUM IONIZED (BEAKER) (test xyhc=221) 1.08 mmol/L 1.12-1.27 PH, BLOOD (BEAKER) (test dwcg=2496) 7.38 COMPREHENSIVE METABOLIC [id number] 05:59:00 Test Item Value Reference Range Comments TOTAL PROTEIN (BEAKER) 5.5 gm/dL 6.0-8.3 (test ekxf=635) ALBUMIN (BEAKER) (test 3.8 g/dL 3.5-5.0 wmsa=0540) ALKALINE PHOSPHATASE 125 U/L 40-150 (BEAKER) (test gzdy=515) BILIRUBIN TOTAL (BEAKER) 0.9 mg/dL 0.2-1.2 (test dkqw=012) SODIUM (BEAKER) (test 130 meq/L 136-145 npyn=793) POTASSIUM (BEAKER) (test 4.0 meq/L 3.5-5.1 uvpo=615) CHLORIDE (BEAKER) (test 99 meq/L 98-107 jqjw=976) CO2 (BEAKER) (test 23 meq/L 22-29 cjkh=584) BLOOD UREA NITROGEN 51 mg/dL 7-21 (BEAKER) (test fojf=531) CREATININE (BEAKER) (test 2.07 mg/dL 0.57-1.25 szav=683) GLUCOSE RANDOM (BEAKER) 320 mg/dL 70-105 (test mbuc=475) CALCIUM (BEAKER) (test 8.7 mg/dL 8.4-10.2 lkjf=013) AST (SGOT) (BEAKER) (test 111 U/L 5-34 xzss=977) ALT (SGPT) (BEAKER) (test 98 U/L 6-55 ttnf=302) EGFR (BEAKER) (test 24 mL/min/1.73 sq m ESTIMATED GFR IS NOT tpkl=1836) ACCURATE CREATININE CLEARANCE IN PREDICTING GLOMERULAR FILTRATION RATE. ESTIMATED GFR IS NOT APPLICABLE FOR DIALYSIS PATIENTS. [id number] 05:58:00 Test Item Value Reference Range Comments PHOSPHORUS (BEAKER) (test hviz=477) 2.1 mg/dL 2.3-4.7 [id number] 05:58:00 Test Item Value Reference Range Comments MAGNESIUM (BEAKER) (test hyfe=179) 2.3 mg/dL 1.6-2.6 HEPATIC FUNCTION [id number] 05:58:00 Test Item Value Reference Range Comments TOTAL PROTEIN (BEAKER) (test apkx=250) 5.5 gm/dL 6.0-8.3 ALBUMIN (BEAKER) (test rlay=6424) 3.8 g/dL 3.5-5.0 BILIRUBIN TOTAL (BEAKER) (test pwji=635) 0.9 mg/dL 0.2-1.2 BILIRUBIN DIRECT (BEAKER) (test sfbt=014) 0.4 mg/dL 0.1-0.5 ALKALINE PHOSPHATASE (BEAKER) (test esgn=099) 125 U/L 40-150 AST (SGOT) (BEAKER) (test rzwg=363) 111 U/L 5-34 ALT (SGPT) (BEAKER) (test momn=055) 98 U/L 6-55 CBC W/PLT COUNT & AUTO [id number] 05:29:00 Test Item Value Reference Range Comments WHITE BLOOD CELL COUNT (BEAKER) (test slze=049) 5.9 K/ L 3.5-10.5 RED BLOOD CELL COUNT (BEAKER) (test jrvi=551) 3.00 M/ L 3.93-5.22 HEMOGLOBIN (BEAKER) (test mefa=183) 8.5 GM/DL 11.2-15.7 HEMATOCRIT (BEAKER) (test tzxh=056) 25.3 % 34.1-44.9 MEAN CORPUSCULAR VOLUME (BEAKER) (test nxju=268) 84.3 fL 79.4-94.8 MEAN CORPUSCULAR HEMOGLOBIN (BEAKER) (test 28.3 pg 25.6-32.2 rdkx=421) MEAN CORPUSCULAR HEMOGLOBIN CONC (BEAKER) (test 33.6 GM/DL 32.2-35.5 wqef=334) RED CELL DISTRIBUTION WIDTH (BEAKER) (test 14.8 % 11.7-14.4 aezd=128) PLATELET COUNT (BEAKER) (test viep=637) 146 K/CU MM 150-450 MEAN PLATELET VOLUME (BEAKER) (test ozqy=067) 10.1 fL 9.4-12.3 NUCLEATED RED BLOOD CELLS (BEAKER) (test 0 /100 WBC 0-0 cqea=157) NEUTROPHILS RELATIVE PERCENT (BEAKER) (test 67 % eycy=221) LYMPHOCYTES RELATIVE PERCENT (BEAKER) (test 16 % jskz=867) MONOCYTES RELATIVE PERCENT (BEAKER) (test 10 % efjz=454) EOSINOPHILS RELATIVE PERCENT (BEAKER) (test 6 % fgkh=662) BASOPHILS RELATIVE PERCENT (BEAKER) (test 1 % ksiz=351) NEUTROPHILS ABSOLUTE COUNT (BEAKER) (test 3.94 K/ L 1.56-6.13 elbb=321) LYMPHOCYTES ABSOLUTE COUNT (BEAKER) (test 0.96 K/ L 1.18-3.74 xsne=825) MONOCYTES ABSOLUTE COUNT (BEAKER) (test 0.57 K/ L 0.24-0.36 fhed=976) EOSINOPHILS ABSOLUTE COUNT (BEAKER) (test 0.37 K/ L 0.04-0.36 srfh=977) BASOPHILS ABSOLUTE COUNT (BEAKER) (test 0.03 K/ L 0.01-0.08 njao=316) IMMATURE GRANULOCYTES-RELATIVE PERCENT (BEAKER) 0 % 0-1 (test dcei=4998) POCT-GLUCOSE [id number] 21:01:00 Test Item Value Reference Range Comments POC-GLUCOSE METER (BEAKER) 371 mg/dL 70-110 Notified ALEXI ENNIS/TESTED AT [facility] (test tihb=4323) [facility] [place] [address] POCT-GLUCOSE [id number] 17:30:00 Test Item Value Reference Range Comments POC-GLUCOSE METER (BEAKER) 389 mg/dL 70-110 TESTED AT [place] [address] [address] (test dnel=4665) [facility] [address] POCT-GLUCOSE [id number] 08:50:00 Test Item Value Reference Range Comments POC-GLUCOSE METER (BEAKER) 303 mg/dL 70-110 TESTED AT [place] [address] [facility] (test aswo=8863) [facility] [address] POCT-GLUCOSE [id number] 08:27:00 Test Item Value Reference Range Comments POC-GLUCOSE METER (BEAKER) 342 mg/dL 70-110 Will Repeat Test/TESTED AT (test hsai=5587) [facility] [address] [facility] [place] [address] CALCIUM, [id number] 07:20:00 Test Item Value Reference Range Comments CALCIUM IONIZED (BEAKER) (test ggaw=894) 0.98 mmol/L 1.12-1.27 PH, BLOOD (BEAKER) (test hseu=6643) 7.41 COMPREHENSIVE METABOLIC [id number] 07:05:00 Test Item Value Reference Range Comments TOTAL PROTEIN (BEAKER) 5.0 gm/dL 6.0-8.3 (test uyeo=332) ALBUMIN (BEAKER) (test 3.3 g/dL 3.5-5.0 kisk=6216) ALKALINE PHOSPHATASE 126 U/L 40-150 (BEAKER) (test oqiu=055) BILIRUBIN TOTAL (BEAKER) 1.2 mg/dL 0.2-1.2 (test gdbg=317) SODIUM (BEAKER) (test 128 meq/L 136-145 mbzw=728) POTASSIUM (BEAKER) (test 4.1 meq/L 3.5-5.1 xoeb=978) CHLORIDE (BEAKER) (test 98 meq/L 98-107 grcc=750) CO2 (BEAKER) (test 20 meq/L 22-29 jmuw=004) BLOOD UREA NITROGEN 43 mg/dL 7-21 (BEAKER) (test qmhk=925) CREATININE (BEAKER) (test 2.39 mg/dL 0.57-1.25 wdfk=380) GLUCOSE RANDOM (BEAKER) 305 mg/dL 70-105 (test xupo=047) CALCIUM (BEAKER) (test 8.1 mg/dL 8.4-10.2 uutw=135) AST (SGOT) (BEAKER) (test 173 U/L 5-34 qtjq=153) ALT (SGPT) (BEAKER) (test 143 U/L 6-55 zlju=053) EGFR (BEAKER) (test 21 mL/min/1.73 sq m ESTIMATED GFR IS NOT lgjr=9455) ACCURATE CREATININE CLEARANCE IN PREDICTING GLOMERULAR FILTRATION RATE. ESTIMATED GFR IS NOT APPLICABLE FOR DIALYSIS PATIENTS. [id number] 06:56:00 Test Item Value Reference Range Comments PHOSPHORUS (BEAKER) (test rbth=952) 2.5 mg/dL 2.3-4.7 [id number] 06:56:00 Test Item Value Reference Range Comments MAGNESIUM (BEAKER) (test amtj=359) 1.9 mg/dL 1.6-2.6 HEPATIC FUNCTION [id number] 06:56:00 Test Item Value Reference Range Comments TOTAL PROTEIN (BEAKER) (test rayh=459) 5.0 gm/dL 6.0-8.3 ALBUMIN (BEAKER) (test qkef=1818) 3.3 g/dL 3.5-5.0 BILIRUBIN TOTAL (BEAKER) (test ozdl=755) 1.2 mg/dL 0.2-1.2 BILIRUBIN DIRECT (BEAKER) (test ngdz=116) 0.6 mg/dL 0.1-0.5 ALKALINE PHOSPHATASE (BEAKER) (test nlwh=123) 126 U/L 40-150 AST (SGOT) (BEAKER) (test wxlc=683) 173 U/L 5-34 ALT (SGPT) (BEAKER) (test lotu=455) 143 U/L 6-55 CBC W/PLT COUNT & AUTO [id number] 06:17:00 Test Item Value Reference Range Comments WHITE BLOOD CELL COUNT (BEAKER) (test jwpb=243) 5.7 K/ L 3.5-10.5 RED BLOOD CELL COUNT (BEAKER) (test ldwl=543) 3.40 M/ L 3.93-5.22 HEMOGLOBIN (BEAKER) (test mnba=331) 9.2 GM/DL 11.2-15.7 HEMATOCRIT (BEAKER) (test iqtq=417) 29.1 % 34.1-44.9 MEAN CORPUSCULAR VOLUME (BEAKER) (test bgkw=720) 85.6 fL 79.4-94.8 MEAN CORPUSCULAR HEMOGLOBIN (BEAKER) (test 27.1 pg 25.6-32.2 wwdp=227) MEAN CORPUSCULAR HEMOGLOBIN CONC (BEAKER) (test 31.6 GM/DL 32.2-35.5 dqdj=078) RED CELL DISTRIBUTION WIDTH (BEAKER) (test 14.7 % 11.7-14.4 xyfg=010) PLATELET COUNT (BEAKER) (test sksp=057) 128 K/CU MM 150-450 MEAN PLATELET VOLUME (BEAKER) (test layg=038) 10.3 fL 9.4-12.3 NUCLEATED RED BLOOD CELLS (BEAKER) (test 0 /100 WBC 0-0 nbfn=150) NEUTROPHILS RELATIVE PERCENT (BEAKER) (test 69 % nvmk=176) LYMPHOCYTES RELATIVE PERCENT (BEAKER) (test 15 % suiw=022) MONOCYTES RELATIVE PERCENT (BEAKER) (test 9 % faus=277) EOSINOPHILS RELATIVE PERCENT (BEAKER) (test 6 % tvhy=197) BASOPHILS RELATIVE PERCENT (BEAKER) (test 1 % khrv=143) NEUTROPHILS ABSOLUTE COUNT (BEAKER) (test 3.91 K/ L 1.56-6.13 qlqs=408) LYMPHOCYTES ABSOLUTE COUNT (BEAKER) (test 0.86 K/ L 1.18-3.74 zdea=750) MONOCYTES ABSOLUTE COUNT (BEAKER) (test 0.51 K/ L 0.24-0.36 kgge=577) EOSINOPHILS ABSOLUTE COUNT (BEAKER) (test 0.35 K/ L 0.04-0.36 gdsl=135) BASOPHILS ABSOLUTE COUNT (BEAKER) (test 0.03 K/ L 0.01-0.08 urgz=212) IMMATURE GRANULOCYTES-RELATIVE PERCENT (BEAKER) 0 % 0-1 (test qmjy=8616) BODY FLUID CELL COUNT WITH [id number] 17:06:00 Test Item Value Reference Range Comments APPEARANCE FLUID (BEAKER) (test knpb=004) Hazy Clear COLOR FLUID (BEAKER) (test triq=159) Yellow Colorless, Straw RBC FLUID (BEAKER) (test rmsh=803) 6000 /cu mm <=1 ADJUSTED WBC FLUID (BEAKER) (test nkwk=0293) 125 /cu mm <=5 LINING CELLS (BEAKER) (test rjnn=1851) 2 /cu mm <=1 NEUTROPHILS FLUID (BEAKER) (test yyxh=6937) 6 % LYMPHS FLUID (BEAKER) (test oeqp=690) 21 % MONO/MACROPHAGE FLUID (BEAKER) (test tgef=452) 73 % EOSINOPHILS FLUID (BEAKER) (test iqzq=716) 0 % BASO FLUID (BEAKER) (test dxjv=878) 0 % CONTAINER BODY FLUID (BEAKER) (test dwxr=1211) EDTA Tube POCT-GLUCOSE [id number] 16:40:00 Test Item Value Reference Range Comments POC-GLUCOSE METER (BEAKER) 396 mg/dL 70-110 TESTED AT [facility] [address] (test kllt=6426) [facility] [address] U/S, [id number] 16:12:00limit to 6 LReason for exam:->ascites, limit to 6 LFINAL REPORT Paracentesis dated 02/22/2019 Procedure: Ultrasound-guided paracentesis. Preprocedure diagnosis: Ascites Postprocedure diagnosis: Ascites Conscious sedation: None. Radiologist: Giovanni Haas M.D. Heading And Priming Tool Setter: None Anesthesia: 1% Xylocaine mixed with sodium bicarbonate local anesthesia. Technique: After obtaining informed consent, ultrasound-guided paracentesis was performed under usual sterile technique. Using a 5 latvian drainage catheter, puncture was made in the right lower quadrant abdomen. Approximately 6000 cc of serous fluid was removed. Patient tolerated the procedure well without complication. Complication: None Graft/ Implant: None Estimated Blood Loss: None Impression: Ultrasound-guided paracentesis. Signed: Giovanni Haas Verified Date/Time: 02/22/2019 16:12 :23 Reading Location: [facility] C013Y CT Body Reading Room RAD, CHEST, 1 VIEW, NON [id number] 12:22:00Reason for exam:->coughShould this be performed at [...] Verified Date/ Time: 02/22/2019 12:22:24 Reading Location: [facility] C013W Consult Reading Room POCT-GLUCOSE [id number] 07:55:00 Test Item Value Reference Range Comments POC-GLUCOSE METER (BEAKER) 317 mg/dL 70-110 TESTED AT [address] (test cyjs=0165) [facility] [address] POCT-GLUCOSE [id number] 07:24:00 Test Item Value Reference Range Comments POC-GLUCOSE METER (BEAKER) 386 mg/dL 70-110 Notified ALEXI ENNIS/TESTED AT [facility] (test jsqv=3325) [address] [place] [address] POCT-GLUCOSE [id number] 07:24:00 Test Item Value Reference Range Comments POC-GLUCOSE METER (BEAKER) 295 mg/dL 70-110 TESTED AT [address] (test onhu=1708) [facility] [address] POCT-GLUCOSE [id number] 07:24:00 Test Item Value Reference Range Comments POC-GLUCOSE METER (BEAKER) 256 mg/dL 70-110 TESTED AT [address] (test vbvo=2798) [place] [id number] BASIC METABOLIC [id number] 06:50:00 Test Item Value Reference Range Comments SODIUM (BEAKER) (test 128 meq/L 136-145 jqby=301) POTASSIUM (BEAKER) (test 4.0 meq/L 3.5-5.1 gwxj=423) CHLORIDE (BEAKER) (test 100 meq/L 98-107 kqft=635) CO2 (BEAKER) (test 21 meq/L 22-29 yesx=297) BLOOD UREA NITROGEN 40 mg/dL 7-21 (BEAKER) (test davb=178) CREATININE (BEAKER) (test 2.62 mg/dL 0.57-1.25 rkvs=955) GLUCOSE RANDOM (BEAKER) 351 mg/dL 70-105 (test rnoz=329) CALCIUM (BEAKER) (test 8.0 mg/dL 8.4-10.2 vgfn=638) EGFR (BEAKER) (test 19 mL/min/1.73 sq m ESTIMATED GFR IS NOT qluw=2697) ACCURATE CREATININE CLEARANCE IN PREDICTING GLOMERULAR FILTRATION RATE. ESTIMATED GFR IS NOT APPLICABLE FOR DIALYSIS PATIENTS. [id number] 06:46:00 Test Item Value Reference Range Comments MAGNESIUM (BEAKER) (test buir=236) 1.9 mg/dL 1.6-2.6 BLOOD [id number] 20:01:00 Test Item Value Reference Range Comments CULTURE (BEAKER) (test bfwd=9927) No growth in 5 days BLOOD [id number] 20:01:00 Test Item Value Reference Range Comments CULTURE (BEAKER) (test fakc=1518) No growth in 5 days POCT-GLUCOSE [id number] 08:39:00 Test Item Value Reference Range Comments POC-GLUCOSE METER (BEAKER) 300 mg/dL 70-110 TESTED AT [facility] [address] (test gwnm=1629) [facility] [address] POCT-GLUCOSE [id number] 08:39:00 Test Item Value Reference Range Comments POC-GLUCOSE METER (BEAKER) 330 mg/dL 70-110 Notified ALEXI ENNIS/TESTED AT [facility] (test rczg=8658) [address] [facility] [place] [address] COMPREHENSIVE METABOLIC [id number] 08:25:00 Test Item Value Reference Range Comments TOTAL PROTEIN (BEAKER) 4.9 gm/dL 6.0-8.3 (test ejwl=833) ALBUMIN (BEAKER) (test 3.3 g/dL 3.5-5.0 yczi=1295) ALKALINE PHOSPHATASE 129 U/L 40-150 (BEAKER) (test zrct=949) BILIRUBIN TOTAL (BEAKER) 1.2 mg/dL 0.2-1.2 (test adqv=360) SODIUM (BEAKER) (test 130 meq/L 136-145 aynt=260) POTASSIUM (BEAKER) (test 4.5 meq/L 3.5-5.1 yrlm=022) CHLORIDE (BEAKER) (test 102 meq/L 98-107 qavf=949) CO2 (BEAKER) (test 20 meq/L 22-29 sgww=337) BLOOD UREA NITROGEN 32 mg/dL 7-21 (BEAKER) (test pliu=071) CREATININE (BEAKER) (test 2.28 mg/dL 0.57-1.25 svtv=962) GLUCOSE RANDOM (BEAKER) 341 mg/dL 70-105 (test cybo=979) CALCIUM (BEAKER) (test 8.1 mg/dL 8.4-10.2 tcqf=372) AST (SGOT) (BEAKER) (test 851 U/L 5-34 xthp=528) ALT (SGPT) (BEAKER) (test 345 U/L 6-55 ceuo=711) EGFR (BEAKER) (test 22 mL/min/1.73 sq m ESTIMATED GFR IS NOT igyl=3568) ACCURATE CREATININE CLEARANCE IN PREDICTING GLOMERULAR FILTRATION RATE. ESTIMATED GFR IS NOT APPLICABLE FOR DIALYSIS PATIENTS. [id number] 08:19:00 Test Item Value Reference Range Comments PHOSPHORUS (BEAKER) (test sbii=913) 2.3 mg/dL 2.3-4.7 [id number] 08:19:00 Test Item Value Reference Range Comments MAGNESIUM (BEAKER) (test lees=609) 1.9 mg/dL 1.6-2.6 CALCIUM, [id number] 07:20:00 Test Item Value Reference Range Comments CALCIUM IONIZED (BEAKER) (test jvrx=258) 0.98 mmol/L 1.12-1.27 PH, BLOOD (BEAKER) (test wgkq=5234) 7.42 CBC W/PLT COUNT & AUTO [id number] 06:36:00 Test Item Value Reference Range Comments WHITE BLOOD CELL COUNT (BEAKER) (test lmra=622) 8.1 K/ L 3.5-10.5 RED BLOOD CELL COUNT (BEAKER) (test oslz=302) 3.43 M/ L 3.93-5.22 HEMOGLOBIN (BEAKER) (test aatv=230) 9.2 GM/DL 11.2-15.7 HEMATOCRIT (BEAKER) (test zchg=268) 29.3 % 34.1-44.9 MEAN CORPUSCULAR VOLUME (BEAKER) (test bzvd=934) 85.4 fL 79.4-94.8 MEAN CORPUSCULAR HEMOGLOBIN (BEAKER) (test 26.8 pg 25.6-32.2 bpch=688) MEAN CORPUSCULAR HEMOGLOBIN CONC (BEAKER) (test 31.4 GM/DL 32.2-35.5 meao=373) RED CELL DISTRIBUTION WIDTH (BEAKER) (test 14.6 % 11.7-14.4 rhpc=952) PLATELET COUNT (BEAKER) (test ihtx=354) 132 K/CU MM 150-450 MEAN PLATELET VOLUME (BEAKER) (test dfey=484) 9.3 fL 9.4-12.3 NUCLEATED RED BLOOD CELLS (BEAKER) (test 0 /100 WBC 0-0 apup=219) NEUTROPHILS RELATIVE PERCENT (BEAKER) (test 77 % jpcg=579) LYMPHOCYTES RELATIVE PERCENT (BEAKER) (test 13 % zker=461) MONOCYTES RELATIVE PERCENT (BEAKER) (test 8 % jzpe=609) EOSINOPHILS RELATIVE PERCENT (BEAKER) (test 2 % vyau=726) BASOPHILS RELATIVE PERCENT (BEAKER) (test 1 % aokn=766) NEUTROPHILS ABSOLUTE COUNT (BEAKER) (test 6.17 K/ L 1.56-6.13 xfxo=397) LYMPHOCYTES ABSOLUTE COUNT (BEAKER) (test 1.02 K/ L 1.18-3.74 rrvq=354) MONOCYTES ABSOLUTE COUNT (BEAKER) (test 0.61 K/ L 0.24-0.36 ptkk=625) EOSINOPHILS ABSOLUTE COUNT (BEAKER) (test 0.18 K/ L 0.04-0.36 rxkz=063) BASOPHILS ABSOLUTE COUNT (BEAKER) (test 0.05 K/ L 0.01-0.08 sycn=833) IMMATURE GRANULOCYTES-RELATIVE PERCENT (BEAKER) 1 % 0-1 (test bgux=7468) BASIC METABOLIC [id number] 19:24:00 Test Item Value Reference Range Comments SODIUM (BEAKER) (test 132 meq/L 136-145 euby=594) POTASSIUM (BEAKER) (test 4.8 meq/L 3.5-5.1 amoc=025) CHLORIDE (BEAKER) (test 103 meq/L 98-107 sugi=643) CO2 (BEAKER) (test 20 meq/L 22-29 xpah=787) BLOOD UREA NITROGEN 30 mg/dL 7-21 (BEAKER) (test tyyj=814) CREATININE (BEAKER) (test 1.85 mg/dL 0.57-1.25 fjeo=797) GLUCOSE RANDOM (BEAKER) 297 mg/dL 70-105 (test ipri=256) CALCIUM (BEAKER) (test 8.7 mg/dL 8.4-10.2 yarv=482) EGFR (BEAKER) (test 28 mL/min/1.73 sq m ESTIMATED GFR IS NOT bski=1636) ACCURATE CREATININE CLEARANCE IN PREDICTING GLOMERULAR FILTRATION RATE. ESTIMATED GFR IS NOT APPLICABLE FOR DIALYSIS PATIENTS. Please draw 4 hours after [address]. Page Dr. Quiroz at [phone] with results.Call [id number] 19:22:00 Test Item Value Reference Range Comments SODIUM (BEAKER) (test unlc=911) 132 meq/L 136-145 POTASSIUM (BEAKER) (test vqsr=811) 4.8 meq/L 3.5-5.1 CHLORIDE (BEAKER) (test abhw=126) 103 meq/L 98-107 CO2 (BEAKER) (test csei=553) 20 meq/L 22-29 Please draw 4 hours after SPS. Page Dr. Quiroz at [phone] with results.Call [id number] 18:11:00 Test Item Value Reference Range Comments POC-GLUCOSE METER (BEAKER) 314 mg/dL 70-110 TESTED AT [address] (test uovz=8395) [place] [address] POCT-GLUCOSE [id number] 17:29:00 Test Item Value Reference Range Comments POC-GLUCOSE METER (BEAKER) 255 mg/dL 70-110 TESTED AT [address] (test rupw=2534) [place] [id number] POCT-GLUCOSE [id number] 13:02:00 Test Item Value Reference Range Comments POC-GLUCOSE METER (BEAKER) 289 mg/dL 70-110 TESTED AT [address] (test empc=1090) [place] [address] BODY FLUID CULTURE + GRAM [id number] 12:08:00 Test Item Value Reference Range Comments CULTURE (BEAKER) (test qzsl=3328) No growth GRAM STAIN RESULT (BEAKER) (test <1+ WBCs vzln=8066) GRAM STAIN RESULT (BEAKER) (test No organisms seen vbes=54585) SEAMUS [id number] 09:29:00Reason for exam:->cirrhosis/ portal hypertension , refractory [...] and a bleeding placement of a 10 Irish sheath from theright hepatic vein to the [...] 1 L of yellow fluid. The 5 Irish needle/catheter was inserted with real-time ultrasound guidance into the peritoneal cavity in the right lateral abdomen following sterile preparation. Following this, the sheath catheter was removed. CONCLUSION: Successful TIPS and paracentesis. Signed: Yulia Kaba MDReport Verified Date/Time: 02/20/2019 09:29:18 Reading Location : [address] Body Reading Room CALCIUM, [id number] 06:43:00 Test Item Value Reference Range Comments CALCIUM IONIZED (BEAKER) (test oemf=923) 1.02 mmol/L 1.12-1.27 PH, BLOOD (BEAKER) (test rfcw=0888) 7.40 [id number] 06:12:00 Test Item Value Reference Range Comments PHOSPHORUS (BEAKER) (test gsrv=058) 2.5 mg/dL 2.3-4.7 [id number] 06:12:00 Test Item Value Reference Range Comments MAGNESIUM (BEAKER) (test hgft=389) 1.6 mg/dL 1.6-2.6 HEPATIC FUNCTION [id number] 06:12:00 Test Item Value Reference Range Comments TOTAL PROTEIN (BEAKER) (test jqox=825) 5.3 gm/dL 6.0-8.3 ALBUMIN (BEAKER) (test wodz=4940) 3.6 g/dL 3.5-5.0 BILIRUBIN TOTAL (BEAKER) (test hsyz=577) 1.2 mg/dL 0.2-1.2 BILIRUBIN DIRECT (BEAKER) (test hrjx=314) 0.6 mg/dL 0.1-0.5 ALKALINE PHOSPHATASE (BEAKER) (test dixe=059) 80 U/L 40-150 AST (SGOT) (BEAKER) (test uovf=376) 99 U/L 5-34 ALT (SGPT) (BEAKER) (test xucl=133) 52 U/L 6-55 COMPREHENSIVE METABOLIC [id number] 06:12:00 Test Item Value Reference Range Comments TOTAL PROTEIN (BEAKER) 5.3 gm/dL 6.0-8.3 (test qqyt=509) ALBUMIN (BEAKER) (test 3.6 g/dL 3.5-5.0 tqkl=5807) ALKALINE PHOSPHATASE 80 U/L 40-150 (BEAKER) (test sngj=585) BILIRUBIN TOTAL (BEAKER) 1.2 mg/dL 0.2-1.2 (test zpvt=173) SODIUM (BEAKER) (test 133 meq/L 136-145 itpu=724) POTASSIUM (BEAKER) (test 5.4 meq/L 3.5-5.1 ukaq=475) CHLORIDE (BEAKER) (test 104 meq/L 98-107 sfud=712) CO2 (BEAKER) (test 22 meq/L 22-29 fotq=176) BLOOD UREA NITROGEN 27 mg/dL 7-21 (BEAKER) (test vbrh=765) CREATININE (BEAKER) (test 1.58 mg/dL 0.57-1.25 ajgc=685) GLUCOSE RANDOM (BEAKER) 300 mg/dL 70-105 (test vljk=845) CALCIUM (BEAKER) (test 8.4 mg/dL 8.4-10.2 qwvm=657) AST (SGOT) (BEAKER) (test 99 U/L 5-34 fmyp=573) ALT (SGPT) (BEAKER) (test 52 U/L 6-55 awdy=054) EGFR (BEAKER) (test 33 mL/min/1.73 sq m ESTIMATED GFR IS NOT mwrc=4612) ACCURATE CREATININE CLEARANCE IN PREDICTING GLOMERULAR FILTRATION RATE. ESTIMATED GFR IS NOT APPLICABLE FOR DIALYSIS PATIENTS. PROTHROMBIN [id number] 05:57:00 Test Item Value Reference Range Comments PROTIME (BEAKER) (test phva=899) 16.4 seconds 11.7-14.7 INR (BEAKER) (test clzr=435) 1.3 <=5.9 RECOMMENDED COUMADIN/WARFARIN INR THERAPY RANGESSTANDARD DOSE: 2.0 - 3.0 Includes: PROPHYLAXIS forvenous thrombosis, systemic embolization; TREATMENT for venous thrombosis and/or pulmonary embolus.HIGH RISK: Target INR is 2.5-3.5 for patients with mechanical heart valves.CBC W/PLT COUNT & AUTO [id number] 05:54:00 Test Item Value Reference Range Comments WHITE BLOOD CELL COUNT (BEAKER) (test smoz=902) 7.9 K/ L 3.5-10.5 RED BLOOD CELL COUNT (BEAKER) (test xymv=843) 3.24 M/ L 3.93-5.22 HEMOGLOBIN (BEAKER) (test crbc=929) 8.9 GM/DL 11.2-15.7 HEMATOCRIT (BEAKER) (test kkfb=774) 28.0 % 34.1-44.9 MEAN CORPUSCULAR VOLUME (BEAKER) (test sano=242) 86.4 fL 79.4-94.8 MEAN CORPUSCULAR HEMOGLOBIN (BEAKER) (test 27.5 pg 25.6-32.2 hqyd=292) MEAN CORPUSCULAR HEMOGLOBIN CONC (BEAKER) (test 31.8 GM/DL 32.2-35.5 glrc=371) RED CELL DISTRIBUTION WIDTH (BEAKER) (test 14.4 % 11.7-14.4 xnwp=470) PLATELET COUNT (BEAKER) (test txaq=597) 132 K/CU MM 150-450 MEAN PLATELET VOLUME (BEAKER) (test xiba=995) 9.3 fL 9.4-12.3 NUCLEATED RED BLOOD CELLS (BEAKER) (test 0 /100 WBC 0-0 ygqu=554) NEUTROPHILS RELATIVE PERCENT (BEAKER) (test 83 % lkyx=541) LYMPHOCYTES RELATIVE PERCENT (BEAKER) (test 10 % bqto=237) MONOCYTES RELATIVE PERCENT (BEAKER) (test 7 % duba=724) EOSINOPHILS RELATIVE PERCENT (BEAKER) (test 0 % fbzz=976) BASOPHILS RELATIVE PERCENT (BEAKER) (test 0 % vwex=785) NEUTROPHILS ABSOLUTE COUNT (BEAKER) (test 6.55 K/ L 1.56-6.13 hvxn=140) LYMPHOCYTES ABSOLUTE COUNT (BEAKER) (test 0.77 K/ L 1.18-3.74 sxqx=651) MONOCYTES ABSOLUTE COUNT (BEAKER) (test 0.55 K/ L 0.24-0.36 shdg=808) EOSINOPHILS ABSOLUTE COUNT (BEAKER) (test 0.00 K/ L 0.04-0.36 azgl=086) BASOPHILS ABSOLUTE COUNT (BEAKER) (test 0.02 K/ L 0.01-0.08 ybhy=664) IMMATURE GRANULOCYTES-RELATIVE PERCENT (BEAKER) 0 % 0-1 (test lmrc=8443) POCT-GLUCOSE [id number] 19:01:00 Test Item Value Reference Range Comments POC-GLUCOSE METER (BEAKER) 301 mg/dL 70-110 TESTED AT [facility] [address] [facility] (test bjtx=8400) [facility] [address] [address], ABDOMEN, WITHOUT [id number] 12:33:00FINAL REPORT ABDOMINAL CT DATED 02/19/2019 CLINICAL [...] [place] Verified Date/Time: 02/19/2019 12:33:54 Reading Location: [address] Body Reading Room Electronicallysigned by: GIOVANNI HAAS M.D. on 02/19/2019 12:33 PMBODY FLUID CULTURE + GRAM [id number] 12:08:00 Test Item Value Reference Range Comments CULTURE (BEAKER) (test agtx=2148) No growth GRAM STAIN RESULT (BEAKER) (test <1+ WBCs yazq=9816) GRAM STAIN RESULT (BEAKER) (test No organisms seen lham=84590) POCT-GLUCOSE [id number] 09:38:00 Test Item Value Reference Range Comments POC-GLUCOSE METER (BEAKER) 274 mg/dL 70-110 TESTED AT [address] (test nnve=5695) [facility] [address] CALCIUM, [id number] 06:56:00 Test Item Value Reference Range Comments CALCIUM IONIZED (BEAKER) (test eqmv=334) 1.05 mmol/L 1.12-1.27 PH, BLOOD (BEAKER) (test wbii=3572) 7.40 [id number] 06:22:00 Test Item Value Reference Range Comments PHOSPHORUS (BEAKER) (test meda=725) 2.3 mg/dL 2.3-4.7 [id number] 06:22:00 Test Item Value Reference Range Comments MAGNESIUM (BEAKER) (test nugj=384) 1.7 mg/dL 1.6-2.6 HEPATIC FUNCTION [id number] 06:22:00 Test Item Value Reference Range Comments TOTAL PROTEIN (BEAKER) (test lhvi=793) 5.6 gm/dL 6.0-8.3 ALBUMIN (BEAKER) (test eklp=9515) 3.4 g/dL 3.5-5.0 BILIRUBIN TOTAL (BEAKER) (test lepk=061) 0.9 mg/dL 0.2-1.2 BILIRUBIN DIRECT (BEAKER) (test coex=057) 0.4 mg/dL 0.1-0.5 ALKALINE PHOSPHATASE (BEAKER) (test kvhk=740) 121 U/L 40-150 AST (SGOT) (BEAKER) (test cynt=926) 28 U/L 5-34 ALT (SGPT) (BEAKER) (test swey=015) 12 U/L 6-55 COMPREHENSIVE METABOLIC [id number] 06:22:00 Test Item Value Reference Range Comments TOTAL PROTEIN (BEAKER) 5.6 gm/dL 6.0-8.3 (test njvl=597) ALBUMIN (BEAKER) (test 3.4 g/dL 3.5-5.0 vptc=6001) ALKALINE PHOSPHATASE 121 U/L 40-150 (BEAKER) (test mgld=229) BILIRUBIN TOTAL (BEAKER) 0.9 mg/dL 0.2-1.2 (test ksnn=229) SODIUM (BEAKER) (test 135 meq/L 136-145 cnqf=531) POTASSIUM (BEAKER) (test 4.5 meq/L 3.5-5.1 tufg=272) CHLORIDE (BEAKER) (test 105 meq/L 98-107 rgfi=186) CO2 (BEAKER) (test 22 meq/L 22-29 zwul=425) BLOOD UREA NITROGEN 29 mg/dL 7-21 (BEAKER) (test gpki=805) CREATININE (BEAKER) (test 1.38 mg/dL 0.57-1.25 efyc=012) GLUCOSE RANDOM (BEAKER) 313 mg/dL 70-105 (test ukvs=412) CALCIUM (BEAKER) (test 8.7 mg/dL 8.4-10.2 ebwb=831) AST (SGOT) (BEAKER) (test 28 U/L 5-34 fcjd=302) ALT (SGPT) (BEAKER) (test 12 U/L 6-55 ecbp=738) EGFR (BEAKER) (test 39 mL/min/1.73 sq m ESTIMATED GFR IS NOT ggre=2708) ACCURATE CREATININE CLEARANCE IN PREDICTING GLOMERULAR FILTRATION RATE. ESTIMATED GFR IS NOT APPLICABLE FOR DIALYSIS PATIENTS. PROTHROMBIN [id number] 06:15:00 Test Item Value Reference Range Comments PROTIME (BEAKER) (test xhyh=160) 14.0 seconds 11.7-14.7 INR (BEAKER) (test seea=824) 1.1 <=5.9 RECOMMENDED COUMADIN/WARFARIN INR THERAPY RANGESSTANDARD DOSE: 2.0 - 3.0 Includes: PROPHYLAXIS forvenous thrombosis, systemic embolization; TREATMENT for venous thrombosis and/or pulmonary embolus.HIGH RISK: Target INR is 2.5-3.5 for patients with mechanical heart valves.CBC W/PLT COUNT & AUTO [id number] 05:57:00 Test Item Value Reference Range Comments WHITE BLOOD CELL COUNT (BEAKER) (test mssm=691) 6.9 K/ L 3.5-10.5 RED BLOOD CELL COUNT (BEAKER) (test zofw=125) 3.83 M/ L 3.93-5.22 HEMOGLOBIN (BEAKER) (test mipv=074) 10.5 GM/DL 11.2-15.7 HEMATOCRIT (BEAKER) (test nzam=910) 33.1 % 34.1-44.9 MEAN CORPUSCULAR VOLUME (BEAKER) (test ddvh=890) 86.4 fL 79.4-94.8 MEAN CORPUSCULAR HEMOGLOBIN (BEAKER) (test 27.4 pg 25.6-32.2 zkqj=434) MEAN CORPUSCULAR HEMOGLOBIN CONC (BEAKER) (test 31.7 GM/DL 32.2-35.5 ktpv=249) RED CELL DISTRIBUTION WIDTH (BEAKER) (test 14.4 % 11.7-14.4 xzin=537) PLATELET COUNT (BEAKER) (test jvye=265) 175 K/CU MM 150-450 MEAN PLATELET VOLUME (BEAKER) (test veyi=660) 9.9 fL 9.4-12.3 NUCLEATED RED BLOOD CELLS (BEAKER) (test 0 /100 WBC 0-0 seyw=575) NEUTROPHILS RELATIVE PERCENT (BEAKER) (test 73 % zhrq=615) LYMPHOCYTES RELATIVE PERCENT (BEAKER) (test 16 % xmkx=651) MONOCYTES RELATIVE PERCENT (BEAKER) (test 7 % vkou=717) EOSINOPHILS RELATIVE PERCENT (BEAKER) (test 4 % mdud=474) BASOPHILS RELATIVE PERCENT (BEAKER) (test 1 % awcl=864) NEUTROPHILS ABSOLUTE COUNT (BEAKER) (test 4.99 K/ L 1.56-6.13 rgjq=437) LYMPHOCYTES ABSOLUTE COUNT (BEAKER) (test 1.09 K/ L 1.18-3.74 dklt=693) MONOCYTES ABSOLUTE COUNT (BEAKER) (test 0.50 K/ L 0.24-0.36 jprn=390) EOSINOPHILS ABSOLUTE COUNT (BEAKER) (test 0.25 K/ L 0.04-0.36 ndhe=152) BASOPHILS ABSOLUTE COUNT (BEAKER) (test 0.04 K/ L 0.01-0.08 mrxe=159) IMMATURE GRANULOCYTES-RELATIVE PERCENT (BEAKER) 0 % 0-1 (test skvt=1364) POCT-GLUCOSE [id number] 23:05:00 Test Item Value Reference Range Comments POC-GLUCOSE METER (BEAKER) 412 mg/dL 70-110 Will Repeat Test/TESTED AT (test xfho=1864) [address] [address] POCT-GLUCOSE [id number] 22:12:00 Test Item Value Reference Range Comments POC-GLUCOSE METER (BEAKER) 371 mg/dL 70-110 TESTED AT [address] (test lzsl=5623) [facility] [address] BODY FLUID CELL COUNT WITH [id number] 13:06:00 Test Item Value Reference Range Comments APPEARANCE FLUID (BEAKER) (test rdkl=478) Slightly Hazy Clear COLOR FLUID (BEAKER) (test nbuu=376) Yellow Colorless, Straw RBC FLUID (BEAKER) (test ilcp=386) 252 /cu mm <=1 ADJUSTED WBC FLUID (BEAKER) (test lsht=2215) 112 /cu mm <=5 LINING CELLS (BEAKER) (test sahq=6966) 10 /cu mm <=1 NEUTROPHILS FLUID (BEAKER) (test rcui=8333) 8 % LYMPHS FLUID (BEAKER) (test ryfe=720) 40 % MONO/MACROPHAGE FLUID (BEAKER) (test 43 % rcck=487) EOSINOPHILS FLUID (BEAKER) (test duwk=858) 0 % BASO FLUID (BEAKER) (test fowz=100) 0 % CONTAINER BODY FLUID (BEAKER) (test EDTA Tube zupc=3397) U/S, [id number] 10:21:00Limit 8 LReason for exam:->ascites, limit 8 [...] skin and deep soft tissues. A 5 Irish one-step catheter was inserted and removed from the peritoneal space and approximately 8.0 liters of clear yellow fluid was aspirated from the abdomen. There were no immediate complications. Impression: Successful ultrasound guided paracentesis with aspiration of 8.0 liters of fluid. Signed: Akil Chung MDRep[place] Verified Date/ Time: 02/18/2019 10:21:08 Reading Location: [address] Ultrasound Reading Room [id number] 07:08:00 Test Item Value Reference Range Comments MAGNESIUM (BEAKER) (test tthy=716) 1.7 mg/dL 1.6-2.6 HEPATIC FUNCTION [id number] 07:08:00 Test Item Value Reference Range Comments TOTAL PROTEIN (BEAKER) (test oesu=449) 5.4 gm/dL 6.0-8.3 ALBUMIN (BEAKER) (test eecs=1958) 3.2 g/dL 3.5-5.0 BILIRUBIN TOTAL (BEAKER) (test gxpz=243) 0.8 mg/dL 0.2-1.2 BILIRUBIN DIRECT (BEAKER) (test vjnu=006) 0.4 mg/dL 0.1-0.5 ALKALINE PHOSPHATASE (BEAKER) (test tfgf=404) 104 U/L 40-150 AST (SGOT) (BEAKER) (test ejfd=741) 20 U/L 5-34 ALT (SGPT) (BEAKER) (test hdql=751) 10 U/L 6-55 COMPREHENSIVE METABOLIC [id number] 07:08:00 Test Item Value Reference Range Comments TOTAL PROTEIN (BEAKER) 5.4 gm/dL 6.0-8.3 (test mrny=370) ALBUMIN (BEAKER) (test 3.2 g/dL 3.5-5.0 ucho=5506) ALKALINE PHOSPHATASE 104 U/L 40-150 (BEAKER) (test bsqw=874) BILIRUBIN TOTAL (BEAKER) 0.8 mg/dL 0.2-1.2 (test mdsy=788) SODIUM (BEAKER) (test 136 meq/L 136-145 azre=915) POTASSIUM (BEAKER) (test 4.3 meq/L 3.5-5.1 ndsw=312) CHLORIDE (BEAKER) (test 108 meq/L 98-107 qxxw=508) CO2 (BEAKER) (test 22 meq/L 22-29 cmhi=310) BLOOD UREA NITROGEN 31 mg/dL 7-21 (BEAKER) (test eacd=423) CREATININE (BEAKER) (test 1.26 mg/dL 0.57-1.25 nllg=930) GLUCOSE RANDOM (BEAKER) 262 mg/dL 70-105 (test cbov=392) CALCIUM (BEAKER) (test 8.5 mg/dL 8.4-10.2 wnha=398) AST (SGOT) (BEAKER) (test 20 U/L 5-34 tose=563) ALT (SGPT) (BEAKER) (test 10 U/L 6-55 fqdb=728) EGFR (BEAKER) (test 43 mL/min/1.73 sq m ESTIMATED GFR IS NOT vafk=0715) ACCURATE CREATININE CLEARANCE IN PREDICTING GLOMERULAR FILTRATION RATE. ESTIMATED GFR IS NOT APPLICABLE FOR DIALYSIS PATIENTS. [id number] 07:07:00 Test Item Value Reference Range Comments PHOSPHORUS (BEAKER) (test xpgo=438) 2.7 mg/dL 2.3-4.7 POCT-GLUCOSE [id number] 06:31:00 Test Item Value Reference Range Comments POC-GLUCOSE METER (BEAKER) 249 mg/dL 70-110 TESTED AT [facility] [address] [facility] (test ldkg=4218) [facility] [address] URINALYSIS W/ [id number] 06:17:00 Test Item Value Reference Range Comments COLOR (BEAKER) (test ivpy=395) Yellow CLARITY (BEAKER) (test bnlr=468) Clear SPECIFIC GRAVITY UA (BEAKER) (test dyyd=051) 1.013 1.001-1.035 PH UA (BEAKER) (test nall=018) 5.0 5.0-8.0 PROTEIN UA (BEAKER) (test voar=160) Negative Negative GLUCOSE UA (BEAKER) (test tlgc=033) 100 mg/dL Negative KETONES UA (BEAKER) (test zcth=073) Negative Negative BILIRUBIN UA (BEAKER) (test tmwp=344) Negative Negative BLOOD UA (BEAKER) (test cfym=565) Negative Negative NITRITE UA (BEAKER) (test qqcm=684) Negative Negative LEUKOCYTE ESTERASE UA (BEAKER) (test fmyj=160) Large Negative UROBILINOGEN UA (BEAKER) (test wzue=001) 0.2 mg/dL 0.2-1.0 RBC UA (BEAKER) (test cxid=780) 2 /HPF WBC UA (BEAKER) (test sdra=434) 24 /HPF SQUAMOUS EPITHELIAL (BEAKER) (test tmst=581) 14 /HPF HYALINE CASTS (BEAKER) (test smoc=938) 3 /LPF SOURCE(BEAKER) (test qojr=7965) Urine, Voided [id number] 05:53:00 Test Item Value Reference Range Comments PARTIAL THROMBOPLASTIN TIME (BEAKER) (test 20.1 seconds 22.5-36.0 sjbe=071) CALCIUM, [id number] 05:50:00 Test Item Value Reference Range Comments CALCIUM IONIZED (BEAKER) (test wsob=985) 1.00 mmol/L 1.12-1.27 PH, BLOOD (BEAKER) (test pswh=7370) 7.43 PROTHROMBIN [id number] 04:54:00 Test Item Value Reference Range Comments PROTIME (BEAKER) (test kcvk=994) 13.8 seconds 11.7-14.7 INR (BEAKER) (test exgp=966) 1.0 <=5.9 RECOMMENDED COUMADIN/WARFARIN INR THERAPY RANGESSTANDARD DOSE: 2.0 - 3.0 Includes: PROPHYLAXIS forvenous thrombosis, systemic embolization; TREATMENT for venous thrombosis and/or pulmonary embolus.HIGH RISK: Target INR is 2.5-3.5 for patients with mechanical heart valves.CREATININE, RANDOM [id number] 04: 48:00 Test Item Value Reference Range Comments CREATININE URINE (BEAKER) (test zwdk=317) 115.9 mg/dL Reference Range: No NormalsPROTEIN, RANDOM [id number] 04:48:00 Test Item Value Reference Range Comments PROTEIN, URINE (BEAKER) (test bfya=7040) 12 mg/dL 0-14 CBC W/PLT COUNT & AUTO [id number] 04:30:00 Test Item Value Reference Range Comments WHITE BLOOD CELL COUNT (BEAKER) (test kqof=481) 5.2 K/ L 3.5-10.5 RED BLOOD CELL COUNT (BEAKER) (test baxf=323) 3.58 M/ L 3.93-5.22 HEMOGLOBIN (BEAKER) (test gfzi=113) 9.8 GM/DL 11.2-15.7 HEMATOCRIT (BEAKER) (test hdah=703) 31.6 % 34.1-44.9 MEAN CORPUSCULAR VOLUME (BEAKER) (test bgzo=125) 88.3 fL 79.4-94.8 MEAN CORPUSCULAR HEMOGLOBIN (BEAKER) (test 27.4 pg 25.6-32.2 lwyd=524) MEAN CORPUSCULAR HEMOGLOBIN CONC (BEAKER) (test 31.0 GM/DL 32.2-35.5 wvkz=949) RED CELL DISTRIBUTION WIDTH (BEAKER) (test 14.4 % 11.7-14.4 dhae=457) PLATELET COUNT (BEAKER) (test wypv=115) 173 K/CU MM 150-450 MEAN PLATELET VOLUME (BEAKER) (test otqi=460) 9.6 fL 9.4-12.3 NUCLEATED RED BLOOD CELLS (BEAKER) (test 0 /100 WBC 0-0 tqft=026) NEUTROPHILS RELATIVE PERCENT (BEAKER) (test 67 % kuds=426) LYMPHOCYTES RELATIVE PERCENT (BEAKER) (test 19 % dvfv=726) MONOCYTES RELATIVE PERCENT (BEAKER) (test 8 % dbmm=194) EOSINOPHILS RELATIVE PERCENT (BEAKER) (test 5 % eess=597) BASOPHILS RELATIVE PERCENT (BEAKER) (test 1 % uxku=396) NEUTROPHILS ABSOLUTE COUNT (BEAKER) (test 3.43 K/ L 1.56-6.13 izmx=162) LYMPHOCYTES ABSOLUTE COUNT (BEAKER) (test 0.98 K/ L 1.18-3.74 cfsn=738) MONOCYTES ABSOLUTE COUNT (BEAKER) (test 0.42 K/ L 0.24-0.36 ovrw=042) EOSINOPHILS ABSOLUTE COUNT (BEAKER) (test 0.26 K/ L 0.04-0.36 rmky=569) BASOPHILS ABSOLUTE COUNT (BEAKER) (test 0.04 K/ L 0.01-0.08 rulo=522) IMMATURE GRANULOCYTES-RELATIVE PERCENT (BEAKER) 0 % 0-1 (test epmp=4164) U/S, ABDOMINAL, WITH [id number] 03:48:00Reason for exam:->TIPS workup , assess for [...] MDReport Verified Date/Time: 02/18/2019 03:48:21 Reading Location: [address] Neuro Reading Room Electronically signed by: Se SCHNEIDER 2018 03:48 AMPOCT-GLUCOSE [id number] 00:28:00 Test Item Value Reference Range Comments POC-GLUCOSE METER (BEAKER) 330 mg/dL 70-110 Will Repeat Test/TESTED AT (test lmsi=0715) [facility] [address] [facility] [address] BODY FLUID CELL COUNT WITH [id number] 18:02:00 Test Item Value Reference Range Comments APPEARANCE FLUID (BEAKER) (test wiyr=183) Clear Clear COLOR FLUID (BEAKER) (test gxlu=563) Yellow Colorless, Straw RBC FLUID (BEAKER) (test micf=069) 20 /cu mm <=1 ADJUSTED WBC FLUID (BEAKER) (test ghax=7922) 50 /cu mm <=5 LINING CELLS (BEAKER) (test zded=6245) 0 /cu mm <=1 NEUTROPHILS FLUID (BEAKER) (test gfhx=2111) 1 % LYMPHS FLUID (BEAKER) (test qvka=704) 38 % MONO/MACROPHAGE FLUID (BEAKER) (test irst=204) 61 % EOSINOPHILS FLUID (BEAKER) (test qzva=836) 0 % BASO FLUID (BEAKER) (test dkeb=605) 0 % CONTAINER BODY FLUID (BEAKER) (test ceiz=6823) EDTA Tube U/S, [id number] 16:30:00limit volume to 8 LReason for exam:-> [...] MDReport Verified Date/Time: 02/17 16:30:42 Reading Location: [address] Ultrasound Reading Room POCT-GLUCOSE [id number] 09:48:00 Test Item Value Reference Range Comments POC-GLUCOSE METER (BEAKER) 198 mg/dL 70-110 TESTED AT [address] (test chgx=1098) [facility] [address] BASIC METABOLIC [id number] 06:30:00 Test Item Value Reference Range Comments SODIUM (BEAKER) (test 137 meq/L 136-145 runf=427) POTASSIUM (BEAKER) (test 4.5 meq/L 3.5-5.1 gobw=050) CHLORIDE (BEAKER) (test 107 meq/L 98-107 wpnp=812) CO2 (BEAKER) (test 24 meq/L 22-29 thpv=748) BLOOD UREA NITROGEN 41 mg/dL 7-21 (BEAKER) (test xayc=666) CREATININE (BEAKER) (test 1.48 mg/dL 0.57-1.25 heem=114) GLUCOSE RANDOM (BEAKER) 200 mg/dL 70-105 (test qhtp=630) CALCIUM (BEAKER) (test 8.9 mg/dL 8.4-10.2 kdof=984) EGFR (BEAKER) (test 36 mL/min/1.73 sq m ESTIMATED GFR IS NOT rrbq=5671) ACCURATE CREATININE CLEARANCE IN PREDICTING GLOMERULAR FILTRATION RATE. ESTIMATED GFR IS NOT APPLICABLE FOR DIALYSIS PATIENTS. POCT-GLUCOSE [id number] 17:31:00 Test Item Value Reference Range Comments POC-GLUCOSE METER (BEAKER) 165 mg/dL 70-110 TESTED AT [facility] [address] [facility] (test wzcl=1208) [facility] [address] U/S, [id number] 16:00:00Reason for exam:->ascites SOBFINAL REPORT PROCEDURE: Ultrasound-guided paracentesis. INDICATION: Ascites. DESCRIPTION: This paracentesis was performed by Lesley Parnell under the direct supervision of Thomas Hendrix. After obtaining informed written consent, ultrasound scan of the abdomen identified ascites in the right lower quadrant. The overlying skin was prepped and draped in the usual, sterile fashion andlocal 2% lidocaine anesthesia was administered. A 5 Irish catheter was advanced into the peritonealcavity and 6000 mL of clear yellow fluid was removed. The catheter was removed without immediate complication. Samples were sent for analysis. IMPRESSION: Uncomplicated ultrasound-guided paracentesis with 6000 mL fluid removed. Signed: Thomas Hendrix [facility] Verified Date/Time: 16:00:46 Reading Location: [address] Ultrasound Reading Room BODY FLUID CELL COUNT WITH [id number] 15:52:00 Test Item Value Reference Range Comments APPEARANCE FLUID (BEAKER) (test fvri=580) Clear Clear COLOR FLUID (BEAKER) (test omxm=750) Yellow Colorless, Straw RBC FLUID (BEAKER) (test tiob=442) 10 /cu mm <=1 ADJUSTED WBC FLUID (BEAKER) (test ryqf=9494) 80 /cu mm <=5 LINING CELLS (BEAKER) (test terk=8687) 0 /cu mm <=1 NEUTROPHILS FLUID (BEAKER) (test sahz=9485) 5 % LYMPHS FLUID (BEAKER) (test auup=878) 35 % MONO/MACROPHAGE FLUID (BEAKER) (test rmhw=750) 59 % EOSINOPHILS FLUID (BEAKER) (test zfvf=348) 1 % BASO FLUID (BEAKER) (test jdjz=355) 0 % CONTAINER BODY FLUID (BEAKER) (test mmrz=8940) EDTA Tube BASIC METABOLIC [id number] 07:28:00 Test Item Value Reference Range Comments SODIUM (BEAKER) (test 134 meq/L 136-145 rvsf=559) POTASSIUM (BEAKER) (test 5.0 meq/L 3.5-5.1 pyod=478) CHLORIDE (BEAKER) (test 107 meq/L 98-107 chjz=390) CO2 (BEAKER) (test 22 meq/L 22-29 kpgv=908) BLOOD UREA NITROGEN 46 mg/dL 7-21 (BEAKER) (test vvss=240) CREATININE (BEAKER) (test 1.61 mg/dL 0.57-1.25 qoip=272) GLUCOSE RANDOM (BEAKER) 220 mg/dL 70-105 (test plhj=930) CALCIUM (BEAKER) (test 9.0 mg/dL 8.4-10.2 vpxz=948) EGFR (BEAKER) (test 33 mL/min/1.73 sq m ESTIMATED GFR IS NOT qybw=3981) ACCURATE CREATININE CLEARANCE IN PREDICTING GLOMERULAR FILTRATION RATE. ESTIMATED GFR IS NOT APPLICABLE FOR DIALYSIS PATIENTS. HEPATIC FUNCTION [id number] 07:28:00 Test Item Value Reference Range Comments TOTAL PROTEIN (BEAKER) (test grof=621) 5.9 gm/dL 6.0-8.3 ALBUMIN (BEAKER) (test zqxa=6384) 3.0 g/dL 3.5-5.0 BILIRUBIN TOTAL (BEAKER) (test fjhm=812) 0.6 mg/dL 0.2-1.2 BILIRUBIN DIRECT (BEAKER) (test enhb=752) 0.3 mg/dL 0.1-0.5 ALKALINE PHOSPHATASE (BEAKER) (test lwlg=919) 154 U/L 40-150 AST (SGOT) (BEAKER) (test oqfb=161) 22 U/L 5-34 ALT (SGPT) (BEAKER) (test sdkv=223) 12 U/L 6-55 [id number] 07:27:00 Test Item Value Reference Range Comments MAGNESIUM (BEAKER) (test rcpl=750) 2.2 mg/dL 1.6-2.6 CBC W/PLT COUNT & AUTO [id number] 07:06:00 Test Item Value Reference Range Comments WHITE BLOOD CELL COUNT (BEAKER) (test rync=750) 6.2 K/ L 3.5-10.5 RED BLOOD CELL COUNT (BEAKER) (test ahme=355) 3.62 M/ L 3.93-5.22 HEMOGLOBIN (BEAKER) (test xmpa=293) 9.8 GM/DL 11.2-15.7 HEMATOCRIT (BEAKER) (test daus=046) 31.4 % 34.1-44.9 MEAN CORPUSCULAR VOLUME (BEAKER) (test srwo=477) 86.7 fL 79.4-94.8 MEAN CORPUSCULAR HEMOGLOBIN (BEAKER) (test 27.1 pg 25.6-32.2 rbwy=590) MEAN CORPUSCULAR HEMOGLOBIN CONC (BEAKER) (test 31.2 GM/DL 32.2-35.5 kgoe=166) RED CELL DISTRIBUTION WIDTH (BEAKER) (test 14.5 % 11.7-14.4 rwjh=755) PLATELET COUNT (BEAKER) (test msdj=291) 198 K/CU MM 150-450 MEAN PLATELET VOLUME (BEAKER) (test more=224) 9.8 fL 9.4-12.3 NUCLEATED RED BLOOD CELLS (BEAKER) (test 0 /100 WBC 0-0 hizz=370) NEUTROPHILS RELATIVE PERCENT (BEAKER) (test 64 % zypi=449) LYMPHOCYTES RELATIVE PERCENT (BEAKER) (test 22 % phos=095) MONOCYTES RELATIVE PERCENT (BEAKER) (test 9 % nvbs=626) EOSINOPHILS RELATIVE PERCENT (BEAKER) (test 5 % sowe=902) BASOPHILS RELATIVE PERCENT (BEAKER) (test 1 % dapc=863) NEUTROPHILS ABSOLUTE COUNT (BEAKER) (test 3.93 K/ L 1.56-6.13 nyme=261) LYMPHOCYTES ABSOLUTE COUNT (BEAKER) (test 1.35 K/ L 1.18-3.74 qkkk=950) MONOCYTES ABSOLUTE COUNT (BEAKER) (test 0.53 K/ L 0.24-0.36 kefl=786) EOSINOPHILS ABSOLUTE COUNT (BEAKER) (test 0.28 K/ L 0.04-0.36 sacg=063) BASOPHILS ABSOLUTE COUNT (BEAKER) (test 0.05 K/ L 0.01-0.08 hyiw=681) IMMATURE GRANULOCYTES-RELATIVE PERCENT (BEAKER) 1 % 0-1 (test lipp=6268) [id number] 06:49:00 Test Item Value Reference Range Comments PROTIME (BEAKER) (test jgvw=317) 13.4 seconds 11.7-14.7 INR (BEAKER) (test qbqb=339) 1.0 <=5.9 PARTIAL THROMBOPLASTIN TIME (BEAKER) (test 30.9 seconds 22.5-36.0 cpea=034) RECOMMENDED COUMADIN/WARFARIN INR THERAPY RANGESSTANDARD DOSE: 2.0 - 3.0 Includes: PROPHYLAXIS forvenous thrombosis, systemic embolization; TREATMENT for venous thrombosis and/or pulmonary embolus.HIGH RISK: Target INR is 2.5-3.5 for patients with mechanical heart valves.URINALYSIS W/ REFLEX URINE [id number] 05:32:00 Test Item Value Reference Range Comments COLOR (BEAKER) (test dact=684) Yellow CLARITY (BEAKER) (test bpqq=020) Hazy SPECIFIC GRAVITY UA (BEAKER) (test bcop=992) 1.021 1.001-1.035 PH UA (BEAKER) (test qdgz=848) 5.5 5.0-8.0 PROTEIN UA (BEAKER) (test pudb=755) 30 mg/dL Negative GLUCOSE UA (BEAKER) (test hjzv=938) Negative Negative KETONES UA (BEAKER) (test yamp=974) Negative Negative BILIRUBIN UA (BEAKER) (test ivzg=836) Negative Negative BLOOD UA (BEAKER) (test xeoq=664) Negative Negative NITRITE UA (BEAKER) (test ujsw=451) Negative Negative LEUKOCYTE ESTERASE UA (BEAKER) (test psof=421) Large Negative UROBILINOGEN UA (BEAKER) (test xbvw=316) 2.0 mg/dL 0.2-1.0 RBC UA (BEAKER) (test loey=154) 7 /HPF WBC UA (BEAKER) (test aofk=213) 7 /HPF MUCUS (BEAKER) (test kxnc=6913) Rare SQUAMOUS EPITHELIAL (BEAKER) (test xfzr=624) 6 /HPF HYALINE CASTS (BEAKER) (test vyry=608) 40 /LPF SOURCE(BEAKER) (test oios=5734) POCT-GLUCOSE [id number] 05:00:00 Test Item Value Reference Range Comments POC-GLUCOSE METER (BEAKER) 227 mg/dL 70-110 TESTED AT [facility] [address] [facility] (test bsgo=3754) [facility] [address] ALPHA FETOPROTEIN (AFP), TUMOR [id number] 15:55:00 Test Item Value Reference Range Comments ALPHA-FETOPROTEIN (BEAKER) (test xbdx=7331) 3.4 ng/mL <10.0 BASIC METABOLIC [id number] 15:40:00 Test Item Value Reference Range Comments SODIUM (BEAKER) (test 133 meq/L 136-145 ghvw=884) POTASSIUM (BEAKER) (test 4.8 meq/L 3.5-5.1 cwot=752) CHLORIDE (BEAKER) (test 101 meq/L 98-107 mxlu=890) CO2 (BEAKER) (test 23 meq/L 22-29 ncgb=392) BLOOD UREA NITROGEN 37 mg/dL 7-21 (BEAKER) (test luwv=170) CREATININE (BEAKER) (test 2.17 mg/dL 0.57-1.25 jmid=394) GLUCOSE RANDOM (BEAKER) 191 mg/dL 70-105 (test eosj=842) CALCIUM (BEAKER) (test 9.2 mg/dL 8.4-10.2 qvtc=909) EGFR (BEAKER) (test 23 mL/min/1.73 sq m ESTIMATED GFR IS NOT pedg=9735) ACCURATE CREATININE CLEARANCE IN PREDICTING GLOMERULAR FILTRATION RATE. ESTIMATED GFR IS NOT APPLICABLE FOR DIALYSIS PATIENTS. HEPATIC FUNCTION [id number] 15:38:00 Test Item Value Reference Range Comments TOTAL PROTEIN (BEAKER) (test vkhh=947) 6.9 gm/dL 6.0-8.3 ALBUMIN (BEAKER) (test rekd=9764) 3.7 g/dL 3.5-5.0 BILIRUBIN TOTAL (BEAKER) (test qjzm=806) 0.8 mg/dL 0.2-1.2 BILIRUBIN DIRECT (BEAKER) (test wdol=947) 0.3 mg/dL 0.1-0.5 ALKALINE PHOSPHATASE (BEAKER) (test mqvl=565) 95 U/L 40-150 AST (SGOT) (BEAKER) (test fvoa=028) 24 U/L 5-34 ALT (SGPT) (BEAKER) (test tguv=878) 14 U/L 6-55 PROTHROMBIN [id number] 15:29:00 Test Item Value Reference Range Comments PROTIME (BEAKER) (test neac=857) 12.8 seconds 11.7-14.7 INR (BEAKER) (test agzk=697) 1.0 <=5.9 RECOMMENDED COUMADIN/WARFARIN INR THERAPY RANGESSTANDARD DOSE: 2.0 - 3.0 Includes: PROPHYLAXIS forvenous thrombosis, systemic embolization; TREATMENT for venous thrombosis and/or pulmonary embolus.HIGH RISK: Target INR is 2.5-3.5 for patients with mechanical heart valves.CBC W/PLT COUNT & AUTO [id number] 15:17:00 Test Item Value Reference Range Comments WHITE BLOOD CELL COUNT (BEAKER) (test ngwp=519) 7.8 K/ L 3.5-10.5 RED BLOOD CELL COUNT (BEAKER) (test qrtl=412) 4.49 M/ L 3.93-5.22 HEMOGLOBIN (BEAKER) (test gbtc=407) 12.4 GM/DL 11.2-15.7 HEMATOCRIT (BEAKER) (test vaop=820) 39.1 % 34.1-44.9 MEAN CORPUSCULAR VOLUME (BEAKER) (test dzql=949) 87.1 fL 79.4-94.8 MEAN CORPUSCULAR HEMOGLOBIN (BEAKER) (test 27.6 pg 25.6-32.2 vjun=782) MEAN CORPUSCULAR HEMOGLOBIN CONC (BEAKER) (test 31.7 GM/DL 32.2-35.5 shot=588) RED CELL DISTRIBUTION WIDTH (BEAKER) (test 14.0 % 11.7-14.4 ivjn=374) PLATELET COUNT (BEAKER) (test lhai=141) 196 K/CU MM 150-450 MEAN PLATELET VOLUME (BEAKER) (test fewq=430) 9.9 fL 9.4-12.3 NUCLEATED RED BLOOD CELLS (BEAKER) (test 0 /100 WBC 0-0 hxrf=954) NEUTROPHILS RELATIVE PERCENT (BEAKER) (test 72 % wvhe=106) LYMPHOCYTES RELATIVE PERCENT (BEAKER) (test 18 % gtur=579) MONOCYTES RELATIVE PERCENT (BEAKER) (test 6 % irtf=792) EOSINOPHILS RELATIVE PERCENT (BEAKER) (test 4 % tzzm=049) BASOPHILS RELATIVE PERCENT (BEAKER) (test 1 % fjcu=993) NEUTROPHILS ABSOLUTE COUNT (BEAKER) (test 5.62 K/ L 1.56-6.13 wsls=479) LYMPHOCYTES ABSOLUTE COUNT (BEAKER) (test 1.37 K/ L 1.18-3.74 oqte=055) MONOCYTES ABSOLUTE COUNT (BEAKER) (test 0.43 K/ L 0.24-0.36 dcvy=760) EOSINOPHILS ABSOLUTE COUNT (BEAKER) (test 0.28 K/ L 0.04-0.36 pncz=971) BASOPHILS ABSOLUTE COUNT (BEAKER) (test 0.07 K/ L 0.01-0.08 osmp=160) IMMATURE GRANULOCYTES-RELATIVE PERCENT (BEAKER) 0 % 0-1 (test kmqp=4457) ANTI-MITOCHONDRIAL AB, REFLEX TO [id number] 08:36:00 Test Item Value Reference Range Comments SCAN RESULT (test sjmg=[id number]) OSMOLALITY, [id number] 10:30:00 Test Item Value Reference Range Comments OSMOLALITY, SERUM (BEAKER) (test ylxo=585) 301 mOsm/kg 275-295 POCT-GLUCOSE [id number] 08:26:00 Test Item Value Reference Range Comments POC-GLUCOSE METER (BEAKER) 243 mg/dL 70-110 TESTED AT [facility] [address] [place] [address] (test nkau=5066) [facility] [address] COMPREHENSIVE METABOLIC [id number] 08:05:00 Test Item Value Reference Range Comments TOTAL PROTEIN (BEAKER) 5.5 gm/dL 6.0-8.3 (test ewdt=409) ALBUMIN (BEAKER) (test 3.2 g/dL 3.5-5.0 jvxk=6198) ALKALINE PHOSPHATASE 75 U/L 40-150 (BEAKER) (test ibcj=089) BILIRUBIN TOTAL (BEAKER) 0.9 mg/dL 0.2-1.2 (test odmj=467) SODIUM (BEAKER) (test 132 meq/L 136-145 kunu=791) POTASSIUM (BEAKER) (test 4.3 meq/L 3.5-5.1 qiji=477) CHLORIDE (BEAKER) (test 101 meq/L 98-107 lilv=083) CO2 (BEAKER) (test 25 meq/L 22-29 lirz=825) BLOOD UREA NITROGEN 45 mg/dL 7-21 (BEAKER) (test csug=871) CREATININE (BEAKER) (test 1.89 mg/dL 0.57-1.25 rlps=009) GLUCOSE RANDOM (BEAKER) 241 mg/dL 70-105 (test whkr=251) CALCIUM (BEAKER) (test 8.6 mg/dL 8.4-10.2 tsnu=689) AST (SGOT) (BEAKER) (test 19 U/L 5-34 psmh=139) ALT (SGPT) (BEAKER) (test 10 U/L 6-55 gyzu=032) EGFR (BEAKER) (test 27 mL/min/1.73 sq m ESTIMATED GFR IS NOT nqza=9487) ACCURATE CREATININE CLEARANCE IN PREDICTING GLOMERULAR FILTRATION RATE. ESTIMATED GFR IS NOT APPLICABLE FOR DIALYSIS PATIENTS. [id number] 08:02:00 Test Item Value Reference Range Comments PHOSPHORUS (BEAKER) (test kowc=610) 3.6 mg/dL 2.3-4.7 [id number] 08:02:00 Test Item Value Reference Range Comments MAGNESIUM (BEAKER) (test eqbw=365) 2.0 mg/dL 1.6-2.6 CBC W/PLT COUNT & AUTO [id number] 05:40:00 Test Item Value Reference Range Comments WHITE BLOOD CELL COUNT (BEAKER) (test tsca=024) 5.7 K/ L 3.5-10.5 RED BLOOD CELL COUNT (BEAKER) (test ffxs=851) 3.76 M/ L 3.93-5.22 HEMOGLOBIN (BEAKER) (test unfw=615) 10.6 GM/DL 11.2-15.7 HEMATOCRIT (BEAKER) (test ewcw=504) 32.9 % 34.1-44.9 MEAN CORPUSCULAR VOLUME (BEAKER) (test fois=900) 87.5 fL 79.4-94.8 MEAN CORPUSCULAR HEMOGLOBIN (BEAKER) (test 28.2 pg 25.6-32.2 ewac=763) MEAN CORPUSCULAR HEMOGLOBIN CONC (BEAKER) (test 32.2 GM/DL 32.2-35.5 znyk=809) RED CELL DISTRIBUTION WIDTH (BEAKER) (test 14.2 % 11.7-14.4 elqa=142) PLATELET COUNT (BEAKER) (test fgph=153) 142 K/CU MM 150-450 MEAN PLATELET VOLUME (BEAKER) (test rtxf=649) 9.8 fL 9.4-12.3 NUCLEATED RED BLOOD CELLS (BEAKER) (test 0 /100 WBC 0-0 dazl=925) NEUTROPHILS RELATIVE PERCENT (BEAKER) (test 70 % pxuf=226) LYMPHOCYTES RELATIVE PERCENT (BEAKER) (test 19 % yggz=880) MONOCYTES RELATIVE PERCENT (BEAKER) (test 7 % odmo=661) EOSINOPHILS RELATIVE PERCENT (BEAKER) (test 3 % gwhg=873) BASOPHILS RELATIVE PERCENT (BEAKER) (test 1 % nxrm=090) NEUTROPHILS ABSOLUTE COUNT (BEAKER) (test 3.99 K/ L 1.56-6.13 hldm=866) LYMPHOCYTES ABSOLUTE COUNT (BEAKER) (test 1.05 K/ L 1.18-3.74 nabf=314) MONOCYTES ABSOLUTE COUNT (BEAKER) (test 0.40 K/ L 0.24-0.36 ggtt=075) EOSINOPHILS ABSOLUTE COUNT (BEAKER) (test 0.16 K/ L 0.04-0.36 kmmc=182) BASOPHILS ABSOLUTE COUNT (BEAKER) (test 0.04 K/ L 0.01-0.08 owpd=350) IMMATURE GRANULOCYTES-RELATIVE PERCENT (BEAKER) 0 % 0-1 (test pdbl=2741) CALCIUM, [id number] 05:17:00 Test Item Value Reference Range Comments CALCIUM IONIZED (BEAKER) (test gzod=331) 1.06 mmol/L 1.12-1.27 PH, BLOOD (BEAKER) (test tjig=6471) 7.41 U/S, RENAL, [id number] 03:59:00Reason for exam:->HEMALATHA/CKDShould this be performed at [...] Verified Date/Time: 11/24/2018 03:59:04 Reading Location: [facility] C0[facility] Transitional Reading Room TROPONIN [id number] 23:19:00 Test Item Value Reference Range Comments TROPONIN I (BEAKER) (test doae=487) < ng/mL 0.00-0.03 Troponin I (TnI) levels [...] acidosis, acute neurological disease, and persistent tachyarrhythmia.POCT-GLUCOSE [id number] 21:12:00 Test Item Value Reference Range Comments POC-GLUCOSE METER (BEAKER) 277 mg/dL 70-110 TESTED AT [address] (test eaxe=2503) [facility] [address] PROTEIN, RANDOM [id number] 20:11:00 Test Item Value Reference Range Comments PROTEIN, URINE (BEAKER) (test isbl=5366) 10 mg/dL 0-14 SODIUM, RANDOM [id number] 20:05:00 Test Item Value Reference Range Comments SODIUM URINE (BEAKER) (test xymf=672) < meq/L Reference Range: No NormalsPOCT-GLUCOSE [id number] 17:28:00 Test Item Value Reference Range Comments POC-GLUCOSE METER (BEAKER) 291 mg/dL 70-110 TESTED AT [address] (test xmep=8690) [facility] [address] POCT-GLUCOSE [id number] 14:02:00 Test Item Value Reference Range Comments POC-GLUCOSE METER (BEAKER) 148 mg/dL 70-110 TESTED AT [facility] [address] [facility] (test pqth=4397) [facility] [address] URINALYSIS W/ [id number] 13:32:00 Test Item Value Reference Range Comments COLOR (BEAKER) (test dtld=528) Yellow CLARITY (BEAKER) (test udlm=504) Clear SPECIFIC GRAVITY UA (BEAKER) (test 1.015 1.001-1.035 ipdo=386) PH UA (BEAKER) (test kmql=765) 5.0 5.0-8.0 PROTEIN UA (BEAKER) (test erhz=273) Negative Negative GLUCOSE UA (BEAKER) (test zqhj=838) Negative Negative KETONES UA (BEAKER) (test fiua=778) Negative Negative BILIRUBIN UA (BEAKER) (test rbzc=732) Negative Negative BLOOD UA (BEAKER) (test jqyn=391) Negative Negative NITRITE UA (BEAKER) (test vimn=979) Negative Negative LEUKOCYTE ESTERASE UA (BEAKER) (test Negative Negative wsbo=391) UROBILINOGEN UA (BEAKER) (test brwj=430) 0.2 mg/dL 0.2-1.0 RBC UA (BEAKER) (test prhx=078) < /HPF WBC UA (BEAKER) (test bmmc=988) 2 /HPF BACTERIA (BEAKER) (test xgei=492) Occasional SQUAMOUS EPITHELIAL (BEAKER) (test 19 /HPF rcyi=718) HYALINE CASTS (BEAKER) (test jjge=526) 5 /LPF AMORPHOUS CRYSTALS (BEAKER) (test Occasional dqvq=9133) SOURCE(BEAKER) (test ixgm=2715) Urine, Clean Catch U/S, ABDOMINAL, [id number] 13:29:00Abdomen limited area? Add comment if clarification [...] Valles Verified Date/Time: 11/23/2018 13:29:13 Reading Location: [address] Transitional Reading Room U/S, [id number] 13:01:00Reason for exam:->Therapeutic paracentesisFINAL REPORT Paracentesis dated 11/23/2018 Procedure: Ultrasound-guided paracentesis. Preprocedure diagnosis: Ascites Postprocedure diagnosis: Ascites Conscious sedation: None. Radiologist: Giovanni Haas M.D. Heading And Priming Tool Setter: None Anesthesia: 1% Xylocaine mixed with sodium bicarbonate local anesthesia. Technique: After obtaining informed consent, ultrasound-guided paracentesis was performed under usual sterile technique. Using a 5 latvian drainage catheter , puncture was made in the right lower quadrant abdomen. Approximately 16,200 cc of serous fluid was removed. Patient tolerated the procedure well without complication. Complication: None Graft/Implant: None Estimated Blood Loss: None Impression: Ultrasound-guided paracentesis. Signed: Giovanni Haas Verified Date/Time: 11/23/2018 13:01:25 Reading Location: [facility] [id number] Ortho Consult Reading Room Electronically signedby: GIOVANNI HAAS M.D. on 2018 01:01 PMCBC W/PLT COUNT & AUTO [id number] 08:55:00 Test Item Value Reference Range Comments WHITE BLOOD CELL COUNT (BEAKER) (test ovog=090) 5.7 K/ L 3.5-10.5 RED BLOOD CELL COUNT (BEAKER) (test jvep=114) 3.72 M/ L 3.93-5.22 HEMOGLOBIN (BEAKER) (test inaa=811) 10.5 GM/DL 11.2-15.7 HEMATOCRIT (BEAKER) (test plnb=485) 32.5 % 34.1-44.9 MEAN CORPUSCULAR VOLUME (BEAKER) (test olge=153) 87.4 fL 79.4-94.8 MEAN CORPUSCULAR HEMOGLOBIN (BEAKER) (test 28.2 pg 25.6-32.2 uehh=448) MEAN CORPUSCULAR HEMOGLOBIN CONC (BEAKER) (test 32.3 GM/DL 32.2-35.5 rpgw=784) RED CELL DISTRIBUTION WIDTH (BEAKER) (test 14.5 % 11.7-14.4 dosk=538) PLATELET COUNT (BEAKER) (test ympj=322) 148 K/CU MM 150-450 MEAN PLATELET VOLUME (BEAKER) (test hqrd=821) 9.4 fL 9.4-12.3 NUCLEATED RED BLOOD CELLS (BEAKER) (test 0 /100 WBC 0-0 wazy=370) NEUTROPHILS RELATIVE PERCENT (BEAKER) (test 63 % cugf=680) LYMPHOCYTES RELATIVE PERCENT (BEAKER) (test 23 % ytrt=504) MONOCYTES RELATIVE PERCENT (BEAKER) (test 8 % cvvz=684) EOSINOPHILS RELATIVE PERCENT (BEAKER) (test 5 % kskb=926) BASOPHILS RELATIVE PERCENT (BEAKER) (test 1 % zzjf=144) NEUTROPHILS ABSOLUTE COUNT (BEAKER) (test 3.61 K/ L 1.56-6.13 zrhx=426) LYMPHOCYTES ABSOLUTE COUNT (BEAKER) (test 1.29 K/ L 1.18-3.74 oywn=282) MONOCYTES ABSOLUTE COUNT (BEAKER) (test 0.47 K/ L 0.24-0.36 uynh=948) EOSINOPHILS ABSOLUTE COUNT (BEAKER) (test 0.28 K/ L 0.04-0.36 agwf=730) BASOPHILS ABSOLUTE COUNT (BEAKER) (test 0.05 K/ L 0.01-0.08 wngm=765) IMMATURE GRANULOCYTES-RELATIVE PERCENT (BEAKER) 0 % 0-1 (test kati=9981) POCT-GLUCOSE [id number] 07:43:00 Test Item Value Reference Range Comments POC-GLUCOSE METER (BEAKER) 196 mg/dL 70-110 TESTED AT [facility] [address] [facility] (test iyqc=6845) [facility] [address] [id number] 06:53:00 Test Item Value Reference Range Comments FERRITIN (BEAKER) (test iwjx=826) 52 ng/mL 5-275 HEPATITIS B [id number] 06:21:00 Test Item Value Reference Range Comments HEPATITIS B CORE TOTAL ANTIBODY (BEAKER) (test Nonreactive Nonreactive tnkk=787) HEPATITIS B SURFACE ANTIBODY (BEAKER) (test < mIU/mL <8.0 bqib=039) HEPATITIS B SURFACE ANTIGEN (2) (BEAKER) (test Nonreactive Nonreactive pshs=0470) HEPATITIS C [id number] 06:20:00 Test Item Value Reference Range Comments HEPATITIS C ANTIBODY (BEAKER) (test utmu=369) Nonreactive Nonreactive HEPATITIS A [id number] 06:20:00 Test Item Value Reference Range Comments HEPATITIS A IGM ANTIBODY (BEAKER) (test Nonreactive Nonreactive rgoy=808) HEPATITIS A IGG ANTIBODY (BEAKER) (test Nonreactive Nonreactive flih=4569) ALPHA FETOPROTEIN (AFP), TUMOR [id number] 06:14:00 Test Item Value Reference Range Comments ALPHA-FETOPROTEIN (BEAKER) (test gwrg=9230) 2.1 ng/mL <10.0 COMPREHENSIVE METABOLIC [id number] 06:01:00 Test Item Value Reference Range Comments TOTAL PROTEIN (BEAKER) 5.9 gm/dL 6.0-8.3 (test pyrp=625) ALBUMIN (BEAKER) (test 2.9 g/dL 3.5-5.0 lhkv=7121) ALKALINE PHOSPHATASE 96 U/L 40-150 (BEAKER) (test uwfu=992) BILIRUBIN TOTAL (BEAKER) 0.5 mg/dL 0.2-1.2 (test hvcr=373) SODIUM (BEAKER) (test 132 meq/L 136-145 llcz=910) POTASSIUM (BEAKER) (test 4.3 meq/L 3.5-5.1 rwgn=695) CHLORIDE (BEAKER) (test 100 meq/L 98-107 eoge=026) CO2 (BEAKER) (test 26 meq/L 22-29 uurb=840) BLOOD UREA NITROGEN 50 mg/dL 7-21 (BEAKER) (test jqmy=954) CREATININE (BEAKER) (test 2.27 mg/dL 0.57-1.25 yvgn=500) GLUCOSE RANDOM (BEAKER) 219 mg/dL 70-105 (test kduk=883) CALCIUM (BEAKER) (test 8.8 mg/dL 8.4-10.2 bnvo=544) AST (SGOT) (BEAKER) (test 22 U/L 5-34 jlji=719) ALT (SGPT) (BEAKER) (test 15 U/L 6-55 prka=344) EGFR (BEAKER) (test 22 mL/min/1.73 sq m ESTIMATED GFR IS NOT waqz=6761) ACCURATE CREATININE CLEARANCE IN PREDICTING GLOMERULAR FILTRATION RATE. ESTIMATED GFR IS NOT APPLICABLE FOR DIALYSIS PATIENTS. IRON, TIBC, % SAT. (WITHOUT FERRITIN)2018-11-23 05:55:00 Test Item Value Reference Range Comments IRON (BEAKER) (test ygvb=509) 46.0 ug/dL 40.0-160.0 TOTAL IRON BINDING CAPACITY (BEAKER) (test 269 ug/dL 250-450 wyld=651) IRON % SATURATION (2) (BEAKER) (test lzvh=4505) 17 % 20-55 [id number] 05:54:00 Test Item Value Reference Range Comments ALPHA-1 ANTITRYPSIN (BEAKER) (test ynft=672) 202.70 mg/dL 90.00-200.00 COMPREHENSIVE METABOLIC [id number] 00:16:00 Test Item Value Reference Range Comments TOTAL PROTEIN (BEAKER) 6.8 gm/dL 6.0-8.3 (test ksbs=460) ALBUMIN (BEAKER) (test 3.3 g/dL 3.5-5.0 chmj=8677) ALKALINE PHOSPHATASE 114 U/L 40-150 (BEAKER) (test bxqc=150) BILIRUBIN TOTAL (BEAKER) 0.6 mg/dL 0.2-1.2 (test wydf=885) SODIUM (BEAKER) (test 130 meq/L 136-145 qghe=508) POTASSIUM (BEAKER) (test 4.4 meq/L 3.5-5.1 lljq=825) CHLORIDE (BEAKER) (test 99 meq/L 98-107 lotp=369) CO2 (BEAKER) (test 22 meq/L 22-29 snpw=322) BLOOD UREA NITROGEN 46 mg/dL 7-21 (BEAKER) (test dkvc=641) CREATININE (BEAKER) (test 2.40 mg/dL 0.57-1.25 yitf=685) GLUCOSE RANDOM (BEAKER) 153 mg/dL 70-105 (test enea=166) CALCIUM (BEAKER) (test 9.1 mg/dL 8.4-10.2 mhaa=922) AST (SGOT) (BEAKER) (test 25 U/L 5-34 vqmj=920) ALT (SGPT) (BEAKER) (test 17 U/L 6-55 kxlz=028) EGFR (BEAKER) (test 21 mL/min/1.73 sq m ESTIMATED GFR IS NOT pamn=2950) ACCURATE CREATININE CLEARANCE IN PREDICTING GLOMERULAR FILTRATION RATE. ESTIMATED GFR IS NOT APPLICABLE FOR DIALYSIS PATIENTS. [id number] 23:52:00 Test Item Value Reference Range Comments PROTIME (BEAKER) (test cyjq=886) 13.3 seconds 11.7-14.7 INR (BEAKER) (test voyo=954) 1.0 <=5.9 PARTIAL THROMBOPLASTIN TIME (BEAKER) (test 26.9 seconds 22.5-36.0 ovno=078) RECOMMENDED COUMADIN/WARFARIN INR THERAPY RANGESSTANDARD DOSE: 2.0 - 3.0 Includes: PROPHYLAXIS forvenous thrombosis, systemic embolization; TREATMENT for venous thrombosis and/or pulmonary embolus.HIGH RISK: Target INR is 2.5-3.5 for patients with mechanical heart valves.POCT-GLUCOSE [id number] 21:25:00 Test Item Value Reference Range Comments POC-GLUCOSE METER (BEAKER) 178 mg/dL 70-110 TESTED AT [facility] [address] [facility] (test hyfe=7912) [facility] [address]
[2019-04-15 11:32] LABS: Absolute Lymphocytes (CBC) 1.4 K/uL (0.7-4.9); Absolute Monocytes 0.4 K/uL (0.1-1.3); Absolute Neutrophil 3.4 K/uL (1.8-8.0); Basophils % 2.1 % (0-1.3); Eosinophils % 8.9 % (0-4.4); Hematocrit 30.5 % (36.0-45.0); Lymphocytes % 23.8 % (15.3-44.8); MPV 6.7 fL (7.6-11.3); Monocytes % 7.5 % (3.3-12.3); RBC Red Blood Cell Count 3.66 M/uL (3.86-4.86)
--- NOTE | 2019-04-15 13:35 | EDPHYS ---
Physician Documentation [facility] Name: Dee Maciel Age: 59 yrs Sex: Female : 1960 Arrival Date: 04/15/2019 Time: 10:41 Bed 19 Private MD: ED Physician Iam Ni HPI: 04/15 11:04 This 59 yrs old Female presents to ER via Ambulatory with complaints of ps1 Facial Swelling. 11:04 patient has known history of liver dysfunction and requires therapeutic paracentesis. ps1 Did not schedule OP paracentesis and now has periorbital swelling and shortness of breath and ascites. Pt of Dr. Storm. Reportedly told to go to ED if not feeling well. . Historical: - Allergies: 10:42 No Known Allergies; hj - Home Meds: 10:54 furosemide 40 mg Oral tab 1.5 tab once daily [Active]; midodrine 5 mg Oral tab 1 tabs tw2 twice a day [Active]; omeprazole 20 mg Oral cpDR 1 cap once daily [Active]; gabapentin 100 mg Oral cap 2 caps nightly [Active]; glimepiride 1 mg Oral tab 1 tab once daily [Active]; levothyroxine 200 mcg tab 1 tab once daily [Active]; lactulose 10 gram/15 mL (15 mL) Oral soln 30 mL twice a day [Active]; pioglitazone 15 mg Oral tab 1 tab once daily [Active]; simvastatin 20 mg Oral tab 1 tab once daily [Active]; sertraline 50 mg Oral tab 1 tab once daily [Active]; spironolactone 100 mg Oral tab 1 tab once daily [Active]; - PMHx: 10:42 Diabetes - NIDDM; Hypothyroidism; [place] liver; hj - PSHx: 10:42 paracentesis; hj - Immunization history:: Adult Immunizations. - Social history:: Smoking status: . - Ebola Screening: : Patient denies travel to an Ebola-affected area in the 21 days before illness onset. ROS: 11:04 Constitutional: Negative for fever, chills, and weight loss, ENT: Negative for injury, ps1 pain, and discharge, Cardiovascular: Negative for chest pain, palpitations, and edema, MS/Extremity: Negative for injury and deformity, Neuro: Negative for headache, weakness, numbness, tingling, and seizure, Psych: Negative for depression, anxiety, suicide ideation, homicidal ideation, and hallucinations. 11:04 Eyes: Positive for periorbital swelling. No erythema. No pain with eye movement. . 11:04 Respiratory: Positive for orthopnea, shortness of breath. 11:04 Abdomen/GI: Positive for distention 2/2 ascities. 11:04 MS/extremity: Positive for edema. Exam: 11:04 Constitutional: This is a well developed, well nourished patient who is awake, alert, ps1 and in no acute distress. Head/Face: Normocephalic, atraumatic. Chest/axilla: Normal chest wall appearance and motion. Nontender with no deformity. No lesions are appreciated. Cardiovascular: Regular rate and rhythm. No gallops, murmurs, or rubs. Normal PMI, no JVD. No pulse deficits. Neuro: Awake and alert, GCS 15, oriented to person, place, time, and situation. Cranial nerves II-XII grossly intact. Sensory grossly intact. Psych: Awake, alert, with orientation to person, place and time. Behavior, mood, and affect are within normal limits. 11:04 Eyes: Periorbital structures: cellulitis, is not appreciated, erythema, is not appreciated, swelling, bilaterally. 11:04 Abdomen/GI: Inspection: distension, that is moderate, Bowel sounds: normal, Palpation: soft, nontender, Liver: is enlarged, ascities. 11:04 Musculoskeletal/extremity: Extremities: Edema, 3+ to the left ankle and right ankle is noted. Vital Signs: 10:42 BP 113 / 52; Pulse 81; Resp 20; Temp 97.8(TE); Pulse Ox 98% on R/A; Weight 127.01 kg; hj Height 5 ft. 4 in. (162.56 cm); Pain 0/10; 12:00 BP 127 / 69; Pulse 77; Resp 17; Pulse Ox 95% on R/A; tw2 12:53 BP 99 / 52; Pulse 75; Resp 17; Pulse Ox 99% on R/A; tw2 13:34 BP 116 / 72; Pulse 71; Resp 18; Pulse Ox 99% on R/A; tw2 10:42 Body Mass Index 48.06 (127.01 kg, 162.56 cm) MDM: 10:53 Patient medically screened. ps1 13:24 Data reviewed: vital signs, nurses notes, lab test result(s). ED course: Spoke with Dr. antonino elizondo. Called in an order for therapeutic paracentesis. Patient is not requiring emergent procedure. Labs drawn. Coordinated with radiology and will perform paracentesis tomorrow morning at 10 am. Stable for discharge. . 04/15 10:54 Order name: CBC with Diff; Complete Time: 11:54 ps1 04/15 11:03 Order name: IV Start; Complete Time: 11:14 tw2 Administered Medications: No medications were administered Disposition: 04/15/19 13:29 Discharged to Home. Impression: Ascites. - Condition is Stable. - Discharge Instructions: Ascites. - Medication Reconciliation Form, Thank You Letter, Antibiotic Education, Prescription Opioid Use form. - Follow up: Private Physician; When: Tomorrow; Reason: Continuance of care. Follow up: Emergency Department; When: As needed; Reason: Fever > 102 F, Trouble breathing, Worsening of condition. - Problem is chronic. - Symptoms have worsened. Signatures: Dispatcher [employer] EDMS Ronnie Roblero RN RN hj [place] RN RN tw2 Iam Ni MD MD ps1 Corrections: (The following items were deleted from the chart) 13:36 13:29 04/15/2019 13:29 Discharged to Home. Impression: Ascites. Condition is Stable. tw2 Forms are Medication Reconciliation Form, Thank You Letter, Antibiotic Education, Prescription Opioid Use. Follow up: Private Physician; When: Tomorrow; Reason: Continuance of care. Follow up: Emergency Department; When: As needed; Reason: Fever > 102 F, Trouble breathing, Worsening of condition. Problem is chronic. Symptoms have worsened. ps1
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
== END 2019-04-15 13:36 | disposition home or self-care (01) ==
LOC: ER 10:32
DX: R18.8 Other ascites (principal); K75.81 Nonalcoholic steatohepatitis (NASH); E11.9 Type 2 diabetes mellitus without complications; E03.9 Hypothyroidism, unspecified
CPT/HCPCS: 36415; 85025; 99284

== ENCOUNTER → 2019-07-08 | Day surgery (SDC) | payer OTHER ==
[~2019-07-08] MED LIST changes: -ALBUMIN HUMAN 25% 100 ML IV ONE
--- OUTSIDE RECORDS SUMMARY | 2019-07-08 06:59 | XMS REPORT ---
:1960 [facility] [address] [place] [address] Dr. Melton [address] [place] [id number] Care Team Providers Name Role Phone SHALINI LOYA Unavailable Unavailable IRVIN NARAYANAN Unavailable Unavailable MOJGAN STEWART Unavailable Unavailable DANIEL FREIRE Unavailable Unavailable ZEB CASEY Unavailable Unavailable Problems This patient has no known problems. Allergies, Adverse Reactions, Alerts This patient has no known allergies or adverse reactions. Medications This patient has no known medications. Results Test Description Test Time Test Comments Text Results Atomic Results Result Comments PROTHROMBIN TIME/INR 2019-06-30 17:20:00 Test Item Value Reference Range Comments PROTIME (BEAKER) (test fmhw=911) 13.6 seconds 11.9-14.2 INR (BEAKER) (test bmny=947) 1.1 <=5.9 Effective 04/01/2019: PT Reference Range ChangeNew: 11.9-14.2 Previous: 11.7- 14.7RECOMMENDED COUMADIN/WARFARIN INR THERAPY RANGESSTANDARD DOSE: 2.0-3.0 Includes: PROPHYLAXIS for venous thrombosis, systemic embolization; TREATMENT for venous thrombosis and/or pulmonary embolus.HIGH RISK: Target INR is2.5-3.5 for patients wiht mechanical heart valves.HEPATIC FUNCTION [id number] 17:16 :00 Test Item Value Reference Range Comments TOTAL PROTEIN (BEAKER) (test fwtn=033) 6.7 gm/dL 6.0-8.3 ALBUMIN (BEAKER) (test acdv=7679) 3.0 g/dL 3.5-5.0 BILIRUBIN TOTAL (BEAKER) (test wize=916) 1.4 mg/dL 0.2-1.2 BILIRUBIN DIRECT (BEAKER) (test zhcw=440) 0.7 mg/dL 0.1-0.5 ALKALINE PHOSPHATASE (BEAKER) (test npdr=289) 139 U/L 40-150 AST (SGOT) (BEAKER) (test qdlp=218) 32 U/L 5-34 ALT (SGPT) (BEAKER) (test bsie=822) 16 U/L 6-55 BASIC METABOLIC [id number] 17:16:00 Test Item Value Reference Range Comments SODIUM (BEAKER) (test 139 meq/L 136-145 nogo=017) POTASSIUM (BEAKER) (test 3.6 meq/L 3.5-5.1 swzq=196) CHLORIDE (BEAKER) (test 99 meq/L 98-107 spxz=860) CO2 (BEAKER) (test 32 meq/L 22-29 vkuw=955) BLOOD UREA NITROGEN 26 mg/dL 7-21 (BEAKER) (test bgmc=997) CREATININE (BEAKER) (test 1.68 mg/dL 0.57-1.25 dedv=287) GLUCOSE RANDOM (BEAKER) 263 mg/dL 70-105 (test nhdf=103) CALCIUM (BEAKER) (test 9.0 mg/dL 8.4-10.2 nozi=712) EGFR (BEAKER) (test 31 mL/min/1.73 sq m ESTIMATED GFR IS NOT kymy=9574) ACCURATE CREATININE CLEARANCE IN PREDICTING GLOMERULAR FILTRATION RATE. ESTIMATED GFR IS NOT APPLICABLE FOR DIALYSIS PATIENTS. CBC W/PLT COUNT & AUTO [id number] 17:01:00 Test Item Value Reference Range Comments WHITE BLOOD CELL COUNT (BEAKER) (test ptnw=575) 7.4 K/ L 3.5-10.5 RED BLOOD CELL COUNT (BEAKER) (test yhty=954) 3.44 M/ L 3.93-5.22 HEMOGLOBIN (BEAKER) (test klvg=749) 9.6 GM/DL 11.2-15.7 HEMATOCRIT (BEAKER) (test gbfx=145) 30.1 % 34.1-44.9 MEAN CORPUSCULAR VOLUME (BEAKER) (test bdbj=620) 87.5 fL 79.4-94.8 MEAN CORPUSCULAR HEMOGLOBIN (BEAKER) (test 27.9 pg 25.6-32.2 orsu=778) MEAN CORPUSCULAR HEMOGLOBIN CONC (BEAKER) (test 31.9 GM/DL 32.2-35.5 ysfw=144) RED CELL DISTRIBUTION WIDTH (BEAKER) (test 16.0 % 11.7-14.4 bwgp=856) PLATELET COUNT (BEAKER) (test umen=231) 190 K/CU MM 150-450 MEAN PLATELET VOLUME (BEAKER) (test uyje=501) 9.3 fL 9.4-12.3 NUCLEATED RED BLOOD CELLS (BEAKER) (test 0 /100 WBC 0-0 oery=917) NEUTROPHILS RELATIVE PERCENT (BEAKER) (test 65 % aujw=200) LYMPHOCYTES RELATIVE PERCENT (BEAKER) (test 23 % gqrd=731) MONOCYTES RELATIVE PERCENT (BEAKER) (test 6 % lghy=236) EOSINOPHILS RELATIVE PERCENT (BEAKER) (test 5 % bqfc=567) BASOPHILS RELATIVE PERCENT (BEAKER) (test 1 % cpoy=366) NEUTROPHILS ABSOLUTE COUNT (BEAKER) (test 4.83 K/ L 1.56-6.13 drdl=855) LYMPHOCYTES ABSOLUTE COUNT (BEAKER) (test 1.67 K/ L 1.18-3.74 ngbd=998) MONOCYTES ABSOLUTE COUNT (BEAKER) (test 0.41 K/ L 0.24-0.36 gsqx=100) EOSINOPHILS ABSOLUTE COUNT (BEAKER) (test 0.40 K/ L 0.04-0.36 qhlh=734) BASOPHILS ABSOLUTE COUNT (BEAKER) (test 0.06 K/ L 0.01-0.08 xwjs=052) IMMATURE GRANULOCYTES-RELATIVE PERCENT (BEAKER) 0 % 0-1 (test rede=6392) POCT-GLUCOSE [id number] 13:48:00 Test Item Value Reference Range Comments POC-GLUCOSE METER (BEAKER) 203 mg/dL 70-110 TESTED AT [address] (test bnnv=6736) [place] [address] POCT-GLUCOSE [id number] 09:45:00 Test Item Value Reference Range Comments POC-GLUCOSE METER (BEAKER) 168 mg/dL 70-110 TESTED AT [address] (test aebc=8936) [place] [address] POCT-GLUCOSE [id number] 08:06:00 Test Item Value Reference Range Comments POC-GLUCOSE METER (BEAKER) 177 mg/dL 70-110 TESTED AT [address] (test tabq=2679) [place] [address] COMPREHENSIVE METABOLIC [id number] 06:11:00 Test Item Value Reference Range Comments TOTAL PROTEIN (BEAKER) 5.5 gm/dL 6.0-8.3 (test sagj=893) ALBUMIN (BEAKER) (test 3.0 g/dL 3.5-5.0 fqql=3126) ALKALINE PHOSPHATASE 117 U/L 40-150 (BEAKER) (test mxcq=676) BILIRUBIN TOTAL (BEAKER) 1.2 mg/dL 0.2-1.2 (test nmax=245) SODIUM (BEAKER) (test 138 meq/L 136-145 wjou=221) POTASSIUM (BEAKER) (test 4.1 meq/L 3.5-5.1 zhiu=691) CHLORIDE (BEAKER) (test 102 meq/L 98-107 ytiq=574) CO2 (BEAKER) (test 29 meq/L 22-29 vojb=301) BLOOD UREA NITROGEN 23 mg/dL 7-21 (BEAKER) (test uwns=961) CREATININE (BEAKER) (test 1.26 mg/dL 0.57-1.25 epur=686) GLUCOSE RANDOM (BEAKER) 177 mg/dL 70-105 (test aeie=581) CALCIUM (BEAKER) (test 8.3 mg/dL 8.4-10.2 rbcd=098) AST (SGOT) (BEAKER) (test 26 U/L 5-34 njiv=204) ALT (SGPT) (BEAKER) (test 9 U/L 6-55 bxll=666) EGFR (BEAKER) (test 43 mL/min/1.73 sq m ESTIMATED GFR IS NOT klgn=3364) ACCURATE CREATININE CLEARANCE IN PREDICTING GLOMERULAR FILTRATION RATE. ESTIMATED GFR IS NOT APPLICABLE FOR DIALYSIS PATIENTS. CBC (HEMOGRAM ONLY)2019-06-03 05:17:00 Test Item Value Reference Range Comments WHITE BLOOD CELL COUNT (BEAKER) (test ymqk=684) 6.0 K/ L 3.5-10.5 RED BLOOD CELL COUNT (BEAKER) (test opgm=486) 2.95 M/ L 3.93-5.22 HEMOGLOBIN (BEAKER) (test nddq=120) 8.1 GM/DL 11.2-15.7 HEMATOCRIT (BEAKER) (test pkrb=172) 26.3 % 34.1-44.9 MEAN CORPUSCULAR VOLUME (BEAKER) (test awin=457) 89.2 fL 79.4-94.8 MEAN CORPUSCULAR HEMOGLOBIN (BEAKER) (test 27.5 pg 25.6-32.2 axzj=727) MEAN CORPUSCULAR HEMOGLOBIN CONC (BEAKER) (test 30.8 GM/DL 32.2-35.5 urxm=096) RED CELL DISTRIBUTION WIDTH (BEAKER) (test 17.3 % 11.7-14.4 vgur=569) PLATELET COUNT (BEAKER) (test sebv=143) 203 K/CU MM 150-450 MEAN PLATELET VOLUME (BEAKER) (test scnx=169) 9.2 fL 9.4-12.3 NUCLEATED RED BLOOD CELLS (BEAKER) (test 0 /100 WBC 0-0 whsl=975) POCT-GLUCOSE [id number] 23:37:00 Test Item Value Reference Range Comments POC-GLUCOSE METER (BEAKER) 212 mg/dL 70-110 TESTED AT [facility] [address] [facility] (test ledu=6917) [facility] [address] POCT-GLUCOSE [id number] 16:58:00 Test Item Value Reference Range Comments POC-GLUCOSE METER (BEAKER) 313 mg/dL 70-110 TESTED AT [facility] [address] [facility] (test yprf=5980) [facility] [address] ANUJ, TIPSS [id number] 14:25:00Reason for exam:->still recurrent paracentesisFINAL REPORT Procedures:1. Ultrasound guided paracentesis2.TIPS revision History: Refractory ascites status post TIPS placement Modality: Sonography and fluoroscopy. Sedation: Moderate sedation was administered. 1 mg of Versed and 50 mcg of fentanyl IV was used for moderate sedation monitored under my direction. Total intra-servicetime of sedation was 60 minutes. The patient's vital signs were monitored throughout the procedureand recorded in the patient's medical record by the nurse. Weir Fisher: Akil Chung MD. Soccer Player: MD Ishaan (Fellow) Approach: 1. Right lower quadrant, percutaneous2. Right internal jugular vein Estimated blood loss: < 5 cc. Specimen: None. Fluoroscopy Time: 6.4 min.Reference Air Kerma (Ka, r): 324 mGy. Technique/findings: Informed written consent was obtained. Discussion of risks, benefits, and alternatives were made with the patient. The patient expressed understanding and agreed to proceed. A universal timeout was performed prior to starting the procedure. All elements maximal sterile barrier technique was utilized for this procedure, including utilization of sterile scrub solution for skin prep, a large sterile sheet to cover the areas of the patient that were not prepped, and hand hygiene , mask, head covering, and sterile gown for performing radiologist and scrub technologist. Initial ultrasound images demonstrate moderate volume of ascites. A pocket of fluid was identified in the right lowerquadrant of the abdomen. This area was marked. The area was prepped and draped in the usual sterile fashion. 1% lidocaine was applied to the skin and deep soft tissues. A 5 Austrian one-step catheter wasinserted and removed from the peritoneal space and approximately 2.5 liters of serous fluid was aspirated from the abdomen. Initial ultrasound images demonstrate patent right internal jugular vein. Using ultrasound guidance, following acquisition of permanent images, the right internal jugular vein was accessed using a 21-gauge micropuncture needle. A 0.018 inch wire was advanced into the right atrium. The needle was exchanged for a 4 Austrian micropuncture sheath. The micropuncture sheath was exchanged over a 0.035 Bentson wire for a 5 Austrian x 10 cm vascular sheath. The TIPS stent was then cannulated using a 5 Austrian C2 catheter and 0.035 angled Glidewire. The catheter was manipulated into the main portal vein and a portogram was performed demonstrating patent TIPS stent. Pressure measurements were obtained. The stent was then dilated using a 10 mm x 4 cm balloon. Post angioplasty venography was performed and repeat pressure measurements were obtained. All catheters and wires removed. The sheath was removed and hemostasis achieved with manual compression. A sterile dressing was applied. The patient tolerated procedure without immediate complication. Pressures (mmHg) : Pre-revision:Portal vein- 18Right atrium - 9 Post-revision:Portal vein - 18Right atrium - 13 Impression: 1. Successful ultrasound guided paracentesis with drainage of 2.5 L of fluid. 2. Successful TIPS revision as detailed above with reduction of the portosystemic gradient to 5 mmHg from 9 mmHg. Signed: Akil Chung MDReport Verified Date/Time: 06/02/2019 14:25:34 Reading Location : [facility] P048 Angio Body Reading Room POCT-GLUCOSE [id number] 11:52:00 Test Item Value Reference Range Comments POC-GLUCOSE METER (BEAKER) 159 mg/dL 70-110 TESTED AT [facility] [address] (test gezk=3045) [facility] [address] [id number] 05:55:00 Test Item Value Reference Range Comments MAGNESIUM (BEAKER) (test kdkx=621) 1.6 mg/dL 1.6-2.6 COMPREHENSIVE METABOLIC [id number] 05:55:00 Test Item Value Reference Range Comments TOTAL PROTEIN (BEAKER) 5.7 gm/dL 6.0-8.3 (test ttex=087) ALBUMIN (BEAKER) (test 3.3 g/dL 3.5-5.0 fkqu=9675) ALKALINE PHOSPHATASE 118 U/L 40-150 (BEAKER) (test dgzk=952) BILIRUBIN TOTAL (BEAKER) 1.4 mg/dL 0.2-1.2 (test dsnd=512) SODIUM (BEAKER) (test 140 meq/L 136-145 zqrz=088) POTASSIUM (BEAKER) (test 3.3 meq/L 3.5-5.1 sjde=964) CHLORIDE (BEAKER) (test 101 meq/L 98-107 vsml=161) CO2 (BEAKER) (test 31 meq/L 22-29 wwot=976) BLOOD UREA NITROGEN 23 mg/dL 7-21 (BEAKER) (test zayg=061) CREATININE (BEAKER) (test 1.33 mg/dL 0.57-1.25 tjdk=160) GLUCOSE RANDOM (BEAKER) 131 mg/dL 70-105 (test rgxq=871) CALCIUM (BEAKER) (test 8.7 mg/dL 8.4-10.2 iicd=504) AST (SGOT) (BEAKER) (test 27 U/L 5-34 hoxj=046) ALT (SGPT) (BEAKER) (test 11 U/L 6-55 gupx=083) EGFR (BEAKER) (test 41 mL/min/1.73 sq m ESTIMATED GFR IS NOT nvho=7257) ACCURATE CREATININE CLEARANCE IN PREDICTING GLOMERULAR FILTRATION RATE. ESTIMATED GFR IS NOT APPLICABLE FOR DIALYSIS PATIENTS. CBC W/PLT COUNT & AUTO [id number] 05:43:00 Test Item Value Reference Range Comments WHITE BLOOD CELL COUNT (BEAKER) (test xabr=120) 6.0 K/ L 3.5-10.5 RED BLOOD CELL COUNT (BEAKER) (test hnbi=659) 2.97 M/ L 3.93-5.22 HEMOGLOBIN (BEAKER) (test jjwm=088) 8.2 GM/DL 11.2-15.7 HEMATOCRIT (BEAKER) (test houp=499) 26.0 % 34.1-44.9 MEAN CORPUSCULAR VOLUME (BEAKER) (test qfpw=660) 87.5 fL 79.4-94.8 MEAN CORPUSCULAR HEMOGLOBIN (BEAKER) (test 27.6 pg 25.6-32.2 oycb=271) MEAN CORPUSCULAR HEMOGLOBIN CONC (BEAKER) (test 31.5 GM/DL 32.2-35.5 spni=191) RED CELL DISTRIBUTION WIDTH (BEAKER) (test 17.7 % 11.7-14.4 mvun=656) PLATELET COUNT (BEAKER) (test dmfn=628) 194 K/CU MM 150-450 MEAN PLATELET VOLUME (BEAKER) (test iutm=983) 9.3 fL 9.4-12.3 NUCLEATED RED BLOOD CELLS (BEAKER) (test 0 /100 WBC 0-0 felb=758) NEUTROPHILS RELATIVE PERCENT (BEAKER) (test 48 % ftsf=086) LYMPHOCYTES RELATIVE PERCENT (BEAKER) (test 31 % abyb=565) MONOCYTES RELATIVE PERCENT (BEAKER) (test 10 % smdd=747) EOSINOPHILS RELATIVE PERCENT (BEAKER) (test 9 % kgkd=653) BASOPHILS RELATIVE PERCENT (BEAKER) (test 1 % ifyo=154) NEUTROPHILS ABSOLUTE COUNT (BEAKER) (test 2.84 K/ L 1.56-6.13 nopz=390) LYMPHOCYTES ABSOLUTE COUNT (BEAKER) (test 1.87 K/ L 1.18-3.74 kfyh=773) MONOCYTES ABSOLUTE COUNT (BEAKER) (test 0.60 K/ L 0.24-0.36 tvey=553) EOSINOPHILS ABSOLUTE COUNT (BEAKER) (test 0.56 K/ L 0.04-0.36 rdmq=934) BASOPHILS ABSOLUTE COUNT (BEAKER) (test 0.08 K/ L 0.01-0.08 fdmp=585) IMMATURE GRANULOCYTES-RELATIVE PERCENT (BEAKER) 0 % 0-1 (test ixum=9387) [id number] 05:42:00 Test Item Value Reference Range Comments PHOSPHORUS (BEAKER) (test hwxs=147) 2.3 mg/dL 2.3-4.7 POCT-GLUCOSE [id number] 22:34:00 Test Item Value Reference Range Comments POC-GLUCOSE METER (BEAKER) 192 mg/dL 70-110 TESTED AT [address] (test pems=6245) [place] [address] POCT-GLUCOSE [id number] 17:01:00 Test Item Value Reference Range Comments POC-GLUCOSE METER (BEAKER) 250 mg/dL 70-110 TESTED AT [address] (test hdlt=6536) [place] [address] [id number] 07:42:00 Test Item Value Reference Range Comments MAGNESIUM (BEAKER) (test 1.6 mg/dL 1.6-2.6 Specimen slightly hemolyzed usps=411) [id number] 07:42:00 Test Item Value Reference Range Comments PHOSPHORUS (BEAKER) (test 2.8 mg/dL 2.3-4.7 Specimen slightly hemolyzed phdv=519) COMPREHENSIVE METABOLIC [id number] 07:42:00 Test Item Value Reference Range Comments TOTAL PROTEIN (BEAKER) 5.5 gm/dL 6.0-8.3 Specimen slightly (test otzh=144) hemolyzed ALBUMIN (BEAKER) (test 2.9 g/dL 3.5-5.0 Specimen slightly jcgd=7724) hemolyzed ALKALINE PHOSPHATASE 125 U/L 40-150 (BEAKER) (test rjgp=045) BILIRUBIN TOTAL (BEAKER) 1.1 mg/dL 0.2-1.2 Specimen slightly (test vudp=436) hemolyzed SODIUM (BEAKER) (test 141 meq/L 136-145 vtez=331) POTASSIUM (BEAKER) (test 3.6 meq/L 3.5-5.1 Specimen slightly dphc=320) hemolyzed CHLORIDE (BEAKER) (test 101 meq/L 98-107 dpwq=808) CO2 (BEAKER) (test 31 meq/L 22-29 igsl=076) BLOOD UREA NITROGEN 23 mg/dL 7-21 (BEAKER) (test gnij=372) CREATININE (BEAKER) (test 1.50 mg/dL 0.57-1.25 Specimen slightly elcp=974) hemolyzed GLUCOSE RANDOM (BEAKER) 153 mg/dL 70-105 (test gieb=246) CALCIUM (BEAKER) (test 8.7 mg/dL 8.4-10.2 yyrw=909) AST (SGOT) (BEAKER) (test 35 U/L 5-34 Specimen slightly ffad=424) hemolyzed ALT (SGPT) (BEAKER) (test 12 U/L 6-55 Specimen slightly mldk=942) hemolyzed EGFR (BEAKER) (test 35 mL/min/1.73 sq m ESTIMATED GFR IS NOT cdix=9154) ACCURATE CREATININE CLEARANCE IN PREDICTING GLOMERULAR FILTRATION RATE. ESTIMATED GFR IS NOT APPLICABLE FOR DIALYSIS PATIENTS. POCT-GLUCOSE [id number] 07:38:00 Test Item Value Reference Range Comments POC-GLUCOSE METER (BEAKER) 154 mg/dL 70-110 TESTED AT [address] (test hupi=6987) [facility] [address] CBC W/PLT COUNT & AUTO [id number] 06:24:00 Test Item Value Reference Range Comments WHITE BLOOD CELL COUNT (BEAKER) (test jafo=214) 6.0 K/ L 3.5-10.5 RED BLOOD CELL COUNT (BEAKER) (test nlko=426) 3.09 M/ L 3.93-5.22 HEMOGLOBIN (BEAKER) (test ogwa=606) 8.5 GM/DL 11.2-15.7 HEMATOCRIT (BEAKER) (test nluh=498) 27.0 % 34.1-44.9 MEAN CORPUSCULAR VOLUME (BEAKER) (test nzjc=233) 87.4 fL 79.4-94.8 MEAN CORPUSCULAR HEMOGLOBIN (BEAKER) (test 27.5 pg 25.6-32.2 qyyo=091) MEAN CORPUSCULAR HEMOGLOBIN CONC (BEAKER) (test 31.5 GM/DL 32.2-35.5 omiq=559) RED CELL DISTRIBUTION WIDTH (BEAKER) (test 17.7 % 11.7-14.4 ahwh=704) PLATELET COUNT (BEAKER) (test jmuz=210) 196 K/CU MM 150-450 MEAN PLATELET VOLUME (BEAKER) (test woox=078) 8.9 fL 9.4-12.3 NUCLEATED RED BLOOD CELLS (BEAKER) (test 0 /100 WBC 0-0 lpbz=086) NEUTROPHILS RELATIVE PERCENT (BEAKER) (test 44 % lvcd=942) LYMPHOCYTES RELATIVE PERCENT (BEAKER) (test 34 % cspl=140) MONOCYTES RELATIVE PERCENT (BEAKER) (test 11 % icmz=945) EOSINOPHILS RELATIVE PERCENT (BEAKER) (test 9 % oudv=703) BASOPHILS RELATIVE PERCENT (BEAKER) (test 2 % hipz=593) NEUTROPHILS ABSOLUTE COUNT (BEAKER) (test 2.64 K/ L 1.56-6.13 wwuo=645) LYMPHOCYTES ABSOLUTE COUNT (BEAKER) (test 2.03 K/ L 1.18-3.74 pxxi=243) MONOCYTES ABSOLUTE COUNT (BEAKER) (test 0.64 K/ L 0.24-0.36 mtcl=608) EOSINOPHILS ABSOLUTE COUNT (BEAKER) (test 0.54 K/ L 0.04-0.36 jacc=805) BASOPHILS ABSOLUTE COUNT (BEAKER) (test 0.09 K/ L 0.01-0.08 fduo=966) IMMATURE GRANULOCYTES-RELATIVE PERCENT (BEAKER) 0 % 0-1 (test acwn=1076) CALCIUM, [id number] 05:35:00 Test Item Value Reference Range Comments CALCIUM IONIZED (BEAKER) (test fygx=090) 0.99 mmol/L 1.12-1.27 PH, BLOOD (BEAKER) (test zlzu=9965) 7.50 POCT-GLUCOSE [id number] 22:12:00 Test Item Value Reference Range Comments POC-GLUCOSE METER (BEAKER) 246 mg/dL 70-110 TESTED AT [address] (test rddh=5853) [facility] [address] POCT-GLUCOSE [id number] 17:11:00 Test Item Value Reference Range Comments POC-GLUCOSE METER (BEAKER) 201 mg/dL 70-110 TESTED AT [address] (test xuqy=5577) [facility] [address] POCT-GLUCOSE [id number] 13:24:00 Test Item Value Reference Range Comments POC-GLUCOSE METER (BEAKER) 173 mg/dL 70-110 TESTED AT [address] (test awzh=4007) [facility] [address] COMPREHENSIVE METABOLIC [id number] 09:06:00 Test Item Value Reference Range Comments TOTAL PROTEIN (BEAKER) 5.8 gm/dL 6.0-8.3 (test jaof=281) ALBUMIN (BEAKER) (test 3.2 g/dL 3.5-5.0 uzxm=9694) ALKALINE PHOSPHATASE 125 U/L 40-150 (BEAKER) (test osnq=121) BILIRUBIN TOTAL (BEAKER) 1.6 mg/dL 0.2-1.2 (test gwgu=269) SODIUM (BEAKER) (test 140 meq/L 136-145 jppe=528) POTASSIUM (BEAKER) (test 3.4 meq/L 3.5-5.1 ozjo=342) CHLORIDE (BEAKER) (test 100 meq/L 98-107 fxax=037) CO2 (BEAKER) (test 31 meq/L 22-29 bbfs=665) BLOOD UREA NITROGEN 21 mg/dL 7-21 (BEAKER) (test kpof=976) CREATININE (BEAKER) (test 1.57 mg/dL 0.57-1.25 eavg=991) GLUCOSE RANDOM (BEAKER) 138 mg/dL 70-105 (test pkwk=022) CALCIUM (BEAKER) (test 8.9 mg/dL 8.4-10.2 dgqi=641) AST (SGOT) (BEAKER) (test 33 U/L 5-34 hvmb=821) ALT (SGPT) (BEAKER) (test 13 U/L 6-55 sxiz=639) EGFR (BEAKER) (test 33 mL/min/1.73 sq m ESTIMATED GFR IS NOT hrsq=5773) ACCURATE CREATININE CLEARANCE IN PREDICTING GLOMERULAR FILTRATION RATE. ESTIMATED GFR IS NOT APPLICABLE FOR DIALYSIS PATIENTS. Specimen slightly ictericPOCT-GLUCOSE [id number] 07:53:00 Test Item Value Reference Range Comments POC-GLUCOSE METER (BEAKER) 157 mg/dL 70-110 TESTED AT [address] (test ksza=6385) [facility] [address] CBC (HEMOGRAM ONLY)2019-05-31 06:33:00 Test Item Value Reference Range Comments WHITE BLOOD CELL COUNT (BEAKER) (test zmnb=614) 5.7 K/ L 3.5-10.5 RED BLOOD CELL COUNT (BEAKER) (test fpfv=154) 3.25 M/ L 3.93-5.22 HEMOGLOBIN (BEAKER) (test pmno=434) 8.9 GM/DL 11.2-15.7 HEMATOCRIT (BEAKER) (test ishh=142) 28.3 % 34.1-44.9 MEAN CORPUSCULAR VOLUME (BEAKER) (test tpcd=422) 87.1 fL 79.4-94.8 MEAN CORPUSCULAR HEMOGLOBIN (BEAKER) (test 27.4 pg 25.6-32.2 trsr=153) MEAN CORPUSCULAR HEMOGLOBIN CONC (BEAKER) (test 31.4 GM/DL 32.2-35.5 flsj=903) RED CELL DISTRIBUTION WIDTH (BEAKER) (test 17.5 % 11.7-14.4 zhkg=992) PLATELET COUNT (BEAKER) (test allk=035) 188 K/CU MM 150-450 MEAN PLATELET VOLUME (BEAKER) (test rxez=150) 9.1 fL 9.4-12.3 NUCLEATED RED BLOOD CELLS (BEAKER) (test 0 /100 WBC 0-0 ozij=534) POCT-GLUCOSE [id number] 22:28:00 Test Item Value Reference Range Comments POC-GLUCOSE METER (BEAKER) 193 mg/dL 70-110 TESTED AT [address] (test tdbl=8544) [place] [id number] POCT-GLUCOSE [id number] 17:19:00 Test Item Value Reference Range Comments POC-GLUCOSE METER (BEAKER) 155 mg/dL 70-110 TESTED AT [address] (test nrtl=1553) [place] [address] POCT-GLUCOSE [id number] 12:44:00 Test Item Value Reference Range Comments POC-GLUCOSE METER (BEAKER) 189 mg/dL 70-110 TESTED AT [address] (test qgcw=7675) [place] [address] POCT-GLUCOSE [id number] 08:30:00 Test Item Value Reference Range Comments POC-GLUCOSE METER (BEAKER) 140 mg/dL 70-110 TESTED AT [address] (test acqb=6018) [place] [address] [id number] 05:15:00 Test Item Value Reference Range Comments THYROID STIMULATING HORMONE (BEAKER) (test 6.32 uIU/mL 0.35-4.94 clkt=252) T4, [id number] 05:11:00 Test Item Value Reference Range Comments FREE T4 (BEAKER) (test bctp=786) 1.70 ng/dL 0.70-1.48 [id number] 04:53:00 Test Item Value Reference Range Comments PHOSPHORUS (BEAKER) (test ilsq=718) 2.4 mg/dL 2.3-4.7 [id number] 04:53:00 Test Item Value Reference Range Comments MAGNESIUM (BEAKER) (test iutm=660) 1.8 mg/dL 1.6-2.6 COMPREHENSIVE METABOLIC [id number] 04:53:00 Test Item Value Reference Range Comments TOTAL PROTEIN (BEAKER) 5.1 gm/dL 6.0-8.3 (test atap=826) ALBUMIN (BEAKER) (test 2.9 g/dL 3.5-5.0 wegb=4963) ALKALINE PHOSPHATASE 101 U/L 40-150 (BEAKER) (test usst=857) BILIRUBIN TOTAL (BEAKER) 1.6 mg/dL 0.2-1.2 (test dhxi=113) SODIUM (BEAKER) (test 137 meq/L 136-145 uwiu=672) POTASSIUM (BEAKER) (test 3.7 meq/L 3.5-5.1 jkuc=704) CHLORIDE (BEAKER) (test 99 meq/L 98-107 murp=852) CO2 (BEAKER) (test 32 meq/L 22-29 emhl=618) BLOOD UREA NITROGEN 20 mg/dL 7-21 (BEAKER) (test teme=002) CREATININE (BEAKER) (test 1.55 mg/dL 0.57-1.25 ufpv=881) GLUCOSE RANDOM (BEAKER) 157 mg/dL 70-105 (test odhj=599) CALCIUM (BEAKER) (test 8.3 mg/dL 8.4-10.2 pqgx=118) AST (SGOT) (BEAKER) (test 33 U/L 5-34 wvgl=752) ALT (SGPT) (BEAKER) (test 12 U/L 6-55 xspt=765) EGFR (BEAKER) (test 34 mL/min/1.73 sq m ESTIMATED GFR IS NOT bupm=9506) ACCURATE CREATININE CLEARANCE IN PREDICTING GLOMERULAR FILTRATION RATE. ESTIMATED GFR IS NOT APPLICABLE FOR DIALYSIS PATIENTS. CBC (HEMOGRAM ONLY)2019-05-30 04:13:00 Test Item Value Reference Range Comments WHITE BLOOD CELL COUNT (BEAKER) (test cuqp=975) 5.3 K/ L 3.5-10.5 RED BLOOD CELL COUNT (BEAKER) (test kkcg=894) 2.75 M/ L 3.93-5.22 HEMOGLOBIN (BEAKER) (test mifd=550) 7.6 GM/DL 11.2-15.7 HEMATOCRIT (BEAKER) (test zbua=216) 24.2 % 34.1-44.9 MEAN CORPUSCULAR VOLUME (BEAKER) (test fxhz=883) 88.0 fL 79.4-94.8 MEAN CORPUSCULAR HEMOGLOBIN (BEAKER) (test 27.6 pg 25.6-32.2 cqkt=266) MEAN CORPUSCULAR HEMOGLOBIN CONC (BEAKER) (test 31.4 GM/DL 32.2-35.5 qjvg=518) RED CELL DISTRIBUTION WIDTH (BEAKER) (test 17.4 % 11.7-14.4 purw=061) PLATELET COUNT (BEAKER) (test loqv=233) 162 K/CU MM 150-450 MEAN PLATELET VOLUME (BEAKER) (test tdzi=619) 9.2 fL 9.4-12.3 NUCLEATED RED BLOOD CELLS (BEAKER) (test 0 /100 WBC 0-0 wmyi=988) CALCIUM, [id number] 04:13:00 Test Item Value Reference Range Comments CALCIUM IONIZED (BEAKER) (test hbst=948) 0.98 mmol/L 1.12-1.27 PH, BLOOD (BEAKER) (test pmaa=1831) 7.58 RAD, CHEST, 2 [id number] 23:47:00Reason for exam:->opacitiesFINAL REPORT Portable chest. HISTORY: Opacities. COMPARISON STUDY: May 19, 2019. FINDINGS: The cardiac size is enlarged. Some linear opacities are seen in the left mid to lower lung field, as on previous and suggestive of atelectasis or fibrosis. Elevation of the right hemidiaphragm is noted. No pneumothorax is seen. IMPRESSION: Opacities in the left lung base with elevation of the right hemidiaphragm. This is similar to previous. Signed: Gregorio Arrington MDReport Verified Date/Time: 05/29/2019 23:47:08 Reading Location: [facility] [id number] Consult Reading Room POCT-GLUCOSE [id number] 23:12:00 Test Item Value Reference Range Comments POC-GLUCOSE METER (BEAKER) 192 mg/dL 70-110 TESTED AT [address] (test nexs=6649) [place] [address] URINALYSIS W/ [id number] 18:14:00 Test Item Value Reference Range Comments COLOR (BEAKER) (test tfaw=915) Yellow CLARITY (BEAKER) (test syrq=676) Clear SPECIFIC GRAVITY UA (BEAKER) (test 1.011 1.001-1.035 ondk=389) PH UA (BEAKER) (test ekem=888) 8.5 5.0-8.0 PROTEIN UA (BEAKER) (test rvuo=719) 20 mg/dL Negative GLUCOSE UA (BEAKER) (test ccca=611) Negative Negative KETONES UA (BEAKER) (test myqg=305) Negative Negative BILIRUBIN UA (BEAKER) (test rfsi=646) Negative Negative BLOOD UA (BEAKER) (test kboc=875) Negative Negative NITRITE UA (BEAKER) (test cfew=517) Negative Negative LEUKOCYTE ESTERASE UA (BEAKER) (test Negative Negative tqid=465) UROBILINOGEN UA (BEAKER) (test fzuk=171) 12.0 mg/dL 0.2-1.0 RBC UA (BEAKER) (test cwdb=909) < /HPF WBC UA (BEAKER) (test uobb=712) 1 /HPF BACTERIA (BEAKER) (test xnuu=268) Rare SQUAMOUS EPITHELIAL (BEAKER) (test 3 /HPF tidq=124) SOURCE(BEAKER) (test dgwb=9606) Urine, Clean Catch POCT-GLUCOSE [id number] 16:55:00 Test Item Value Reference Range Comments POC-GLUCOSE METER (BEAKER) 186 mg/dL 70-110 TESTED AT [address] (test mmzu=1740) [place] [id number] TISSUE [id number] 15:15:00Surgical Pathology Report Case: [id number] Authorizing Provider: Shannen Giron MD Collected: 05/28/2019 1448 Ordering Location: [address] Received: 05/29/2019 0915 Service Pathologist: Padilla Reed MD Specimen: Polyp, Colon - Right/Ascending, taken by doug pathak PART A RIGHT ASCENDING COLON POLYP, POLYPECTOMY:TUBULAR ADENOMA. Signing Pathologist Direct Phone Line: [phone] signed by Padilla Reed MD on 05/29/2019 at 3:15 [id number] colonoscopyRight ascending colonReceived in formalin, labelled with the patients name, date of , and medical record number and labelled "right ascending colon polyp" are three portions of silva tissue measuring 0.5 x 0.4 x 0.3 cm in aggregate. Submitted in toto in one cassette. Performed.BODY FLUID CULTURE + GRAM [id number] 12:56:00 Test Item Value Reference Range Comments CULTURE (BEAKER) (test sgnt=8493) No growth GRAM STAIN RESULT (BEAKER) (test No WBCs qxwz=0450) GRAM STAIN RESULT (BEAKER) (test No organisms seen qllf=53898) POCT-GLUCOSE [id number] 12:37:00 Test Item Value Reference Range Comments POC-GLUCOSE METER (BEAKER) 154 mg/dL 70-110 TESTED AT [address] (test wzyr=5779) [place] [id number] POCT-GLUCOSE [id number] 09:12:00 Test Item Value Reference Range Comments POC-GLUCOSE METER (BEAKER) 76 mg/dL 70-110 TESTED AT [address] (test ityi=5791) [place] [id number] COMPREHENSIVE METABOLIC [id number] 08:19:00 Test Item Value Reference Range Comments TOTAL PROTEIN (BEAKER) 4.9 gm/dL 6.0-8.3 (test nmhe=294) ALBUMIN (BEAKER) (test 3.0 g/dL 3.5-5.0 gcma=9194) ALKALINE PHOSPHATASE 88 U/L 40-150 (BEAKER) (test rsdf=273) BILIRUBIN TOTAL (BEAKER) 1.9 mg/dL 0.2-1.2 (test exxt=705) SODIUM (BEAKER) (test 141 meq/L 136-145 zyfd=334) POTASSIUM (BEAKER) (test 3.5 meq/L 3.5-5.1 jkml=056) CHLORIDE (BEAKER) (test 100 meq/L 98-107 jizw=861) CO2 (BEAKER) (test 34 meq/L 22-29 mpvm=211) BLOOD UREA NITROGEN 18 mg/dL 7-21 (BEAKER) (test qadh=163) CREATININE (BEAKER) (test 1.50 mg/dL 0.57-1.25 vfip=726) GLUCOSE RANDOM (BEAKER) 92 mg/dL 70-105 (test wmoe=470) CALCIUM (BEAKER) (test 8.5 mg/dL 8.4-10.2 pzhb=363) AST (SGOT) (BEAKER) (test 27 U/L 5-34 ngwn=609) ALT (SGPT) (BEAKER) (test 10 U/L 6-55 eeax=544) EGFR (BEAKER) (test 35 mL/min/1.73 sq m ESTIMATED GFR IS NOT wcnv=1064) ACCURATE CREATININE CLEARANCE IN PREDICTING GLOMERULAR FILTRATION RATE. ESTIMATED GFR IS NOT APPLICABLE FOR DIALYSIS PATIENTS. Specimen slightly [id number] 08:18:00 Test Item Value Reference Range Comments PHOSPHORUS (BEAKER) (test gsxa=604) 2.8 mg/dL 2.3-4.7 [id number] 08:18:00 Test Item Value Reference Range Comments MAGNESIUM (BEAKER) (test lbih=305) 2.0 mg/dL 1.6-2.6 CBC W/PLT COUNT & AUTO [id number] 05:59:00 Test Item Value Reference Range Comments WHITE BLOOD CELL COUNT (BEAKER) (test bbfv=901) 5.3 K/ L 3.5-10.5 RED BLOOD CELL COUNT (BEAKER) (test bkmi=398) 2.79 M/ L 3.93-5.22 HEMOGLOBIN (BEAKER) (test iojp=279) 7.7 GM/DL 11.2-15.7 HEMATOCRIT (BEAKER) (test qvat=239) 24.8 % 34.1-44.9 MEAN CORPUSCULAR VOLUME (BEAKER) (test xsnb=813) 88.9 fL 79.4-94.8 MEAN CORPUSCULAR HEMOGLOBIN (BEAKER) (test 27.6 pg 25.6-32.2 eyip=059) MEAN CORPUSCULAR HEMOGLOBIN CONC (BEAKER) (test 31.0 GM/DL 32.2-35.5 wcnl=679) RED CELL DISTRIBUTION WIDTH (BEAKER) (test 17.6 % 11.7-14.4 rdjr=539) PLATELET COUNT (BEAKER) (test wfhz=247) 146 K/CU MM 150-450 MEAN PLATELET VOLUME (BEAKER) (test ogwh=472) 9.6 fL 9.4-12.3 NUCLEATED RED BLOOD CELLS (BEAKER) (test 0 /100 WBC 0-0 mnad=941) NEUTROPHILS RELATIVE PERCENT (BEAKER) (test 46 % pnfc=060) LYMPHOCYTES RELATIVE PERCENT (BEAKER) (test 31 % omab=111) MONOCYTES RELATIVE PERCENT (BEAKER) (test 11 % dant=451) EOSINOPHILS RELATIVE PERCENT (BEAKER) (test 10 % ivrb=981) BASOPHILS RELATIVE PERCENT (BEAKER) (test 2 % kuay=943) NEUTROPHILS ABSOLUTE COUNT (BEAKER) (test 2.46 K/ L 1.56-6.13 kjca=797) LYMPHOCYTES ABSOLUTE COUNT (BEAKER) (test 1.66 K/ L 1.18-3.74 uuic=624) MONOCYTES ABSOLUTE COUNT (BEAKER) (test 0.57 K/ L 0.24-0.36 uedo=862) EOSINOPHILS ABSOLUTE COUNT (BEAKER) (test 0.52 K/ L 0.04-0.36 pawq=639) BASOPHILS ABSOLUTE COUNT (BEAKER) (test 0.08 K/ L 0.01-0.08 hgvz=603) IMMATURE GRANULOCYTES-RELATIVE PERCENT (BEAKER) 0 % 0-1 (test tqtj=8867) CALCIUM, [id number] 05:04:00 Test Item Value Reference Range Comments CALCIUM IONIZED (BEAKER) (test akuw=019) 1.02 mmol/L 1.12-1.27 PH, BLOOD (BEAKER) (test vlek=4531) 7.50 POCT-GLUCOSE [id number] 21:27:00 Test Item Value Reference Range Comments POC-GLUCOSE METER (BEAKER) 139 mg/dL 70-110 TESTED AT [address] (test xzqh=6518) [facility] [address] BASIC METABOLIC [id number] 18:28:00 Test Item Value Reference Range Comments SODIUM (BEAKER) (test 142 meq/L 136-145 dyml=253) POTASSIUM (BEAKER) (test 3.5 meq/L 3.5-5.1 cqld=873) CHLORIDE (BEAKER) (test 99 meq/L 98-107 lpug=088) CO2 (BEAKER) (test 37 meq/L 22-29 whfn=443) BLOOD UREA NITROGEN 17 mg/dL 7-21 (BEAKER) (test vkys=491) CREATININE (BEAKER) (test 1.38 mg/dL 0.57-1.25 lejk=974) GLUCOSE RANDOM (BEAKER) 78 mg/dL 70-105 (test jhfk=464) CALCIUM (BEAKER) (test 8.5 mg/dL 8.4-10.2 zqzh=349) EGFR (BEAKER) (test 39 mL/min/1.73 sq m ESTIMATED GFR IS NOT wyre=4782) ACCURATE CREATININE CLEARANCE IN PREDICTING GLOMERULAR FILTRATION RATE. ESTIMATED GFR IS NOT APPLICABLE FOR DIALYSIS PATIENTS. Call [id number] with resultsSpecimen slightly ictericPOCT-GLUCOSE [id number] 18:10:00 Test Item Value Reference Range Comments POC-GLUCOSE METER ([facility]) 82 mg/dL 70-110 TESTED AT [address] (test adgh=3364) [facility] [address] CBC W/PLT COUNT & AUTO [id number] 11:56:00 Test Item Value Reference Range Comments WHITE BLOOD CELL COUNT (BEAKER) (test uhih=240) 5.0 K/ L 3.5-10.5 RED BLOOD CELL COUNT (BEAKER) (test qolt=550) 2.82 M/ L 3.93-5.22 HEMOGLOBIN (BEAKER) (test lbgx=846) 7.9 GM/DL 11.2-15.7 HEMATOCRIT (BEAKER) (test pdly=615) 25.0 % 34.1-44.9 MEAN CORPUSCULAR VOLUME (BEAKER) (test abel=881) 88.7 fL 79.4-94.8 MEAN CORPUSCULAR HEMOGLOBIN (BEAKER) (test 28.0 pg 25.6-32.2 ixah=236) MEAN CORPUSCULAR HEMOGLOBIN CONC (BEAKER) (test 31.6 GM/DL 32.2-35.5 ucxt=216) RED CELL DISTRIBUTION WIDTH (BEAKER) (test 17.6 % 11.7-14.4 tfpg=429) PLATELET COUNT (BEAKER) (test ymdf=921) 155 K/CU MM 150-450 MEAN PLATELET VOLUME (BEAKER) (test hpmh=126) 9.5 fL 9.4-12.3 NUCLEATED RED BLOOD CELLS (BEAKER) (test 0 /100 WBC 0-0 anjd=048) (CELLAVISION MANUAL DIFF)2019-05-28 11:56:00 Test Item Value Reference Range Comments NEUTROPHILS - REL (CELLAVISION)(BEAKER) (test 69 % bhta=9106) LYMPHOCYTES - REL (CELLAVISION)(BEAKER) (test 21 % ifcw=7559) MONOCYTES - REL (CELLAVISION)(BEAKER) (test 3 % fqnh=9205) EOSINOPHILS - REL (CELLAVISION)(BEAKER) (test 5 % yovt=6604) BASOPHILS - REL (CELLAVISION)(BEAKER) (test 1 % aqsv=8661) MYELOCYTES - REL (CELLAVISION)(BEAKER) (test 1 % 0-0 yvbl=8578) NEUTROPHILS - ABS (CELLAVISION)(BEAKER) (test 3.45 K/ul 1.56-6.13 dlru=0764) LYMPHOCYTES - ABS (CELLAVISION)(BEAKER) (test 1.05 K/ul 1.18-3.74 ecef=7860) MONOCYTES - ABS (CELLAVISION)(BEAKER) (test 0.15 K/uL 0.24-0.36 nyds=7471) EOSINOPHILS - ABS (CELLAVISION)(BEAKER) (test 0.25 K/uL 0.04-0.36 mrgx=7963) BASOPHILS - ABS (CELLAVISION)(BEAKER) (test 0.05 K/uL 0.01-0.08 dzkk=1323) MYELOCYTES-ABS (CELLAVISION)(BEAKER) (test 0.05 K/uL 0.00-0.00 fcbv=6023) TOTAL COUNTED (BEAKER) (test bofq=7892) 100 PLT MORPHOLOGY (BEAKER) (test lfjz=005) Normal SMUDGE CELLS (BEAKER) (test kecj=8149) Present POLYCHROMATOPHILLIC RBCS(BEAKER) (test emjr=846) 1+ few ANISOCYTOSIS (BEAKER) (test kwih=562) 2+ moderate MICROCYTES (BEAKER) (test thde=887) 2+ moderate POIKILOCYTES (BEAKER) (test jabk=495) 1+ few SPHEROCYTES (BEAKER) (test ddnr=095) 1+ few PLATELET CONCENTRATION (CELLAVISION)(BEAKER) Adequate (test jjpr=4944) Received comment: User comments: Slide comments:POCT-GLUCOSE [id number] 10: 05:00 Test Item Value Reference Range Comments POC-GLUCOSE METER (BEAKER) 82 mg/dL 70-110 TESTED AT [address] (test usgo=0231) [facility] [address] POCT-GLUCOSE [id number] 09:07:00 Test Item Value Reference Range Comments POC-GLUCOSE METER (BEAKER) 84 mg/dL 70-110 TESTED AT [address] (test zpln=6436) [facility] [address] [id number] 06:31:00 Test Item Value Reference Range Comments PHOSPHORUS (BEAKER) (test ppzw=377) 2.5 mg/dL 2.3-4.7 [id number] 06:31:00 Test Item Value Reference Range Comments MAGNESIUM (BEAKER) (test kmhs=170) 1.7 mg/dL 1.6-2.6 COMPREHENSIVE METABOLIC [id number] 06:31:00 Test Item Value Reference Range Comments TOTAL PROTEIN (BEAKER) 4.9 gm/dL 6.0-8.3 (test rnck=669) ALBUMIN (BEAKER) (test 3.1 g/dL 3.5-5.0 wayq=6481) ALKALINE PHOSPHATASE 82 U/L 40-150 (BEAKER) (test rsdq=914) BILIRUBIN TOTAL (BEAKER) 2.3 mg/dL 0.2-1.2 (test hxuh=660) SODIUM (BEAKER) (test 143 meq/L 136-145 zbsr=660) POTASSIUM (BEAKER) (test 3.5 meq/L 3.5-5.1 ajor=118) CHLORIDE (BEAKER) (test 100 meq/L 98-107 gbkh=935) CO2 (BEAKER) (test 37 meq/L 22-29 dmyw=614) BLOOD UREA NITROGEN 16 mg/dL 7-21 (BEAKER) (test bwlg=573) CREATININE (BEAKER) (test 1.37 mg/dL 0.57-1.25 rmkg=791) GLUCOSE RANDOM (BEAKER) 96 mg/dL 70-105 (test qvui=832) CALCIUM (BEAKER) (test 8.6 mg/dL 8.4-10.2 zxgk=198) AST (SGOT) (BEAKER) (test 30 U/L 5-34 kkwa=854) ALT (SGPT) (BEAKER) (test 10 U/L 6-55 mtmh=518) EGFR (BEAKER) (test 39 mL/min/1.73 sq m ESTIMATED GFR IS NOT nwpz=8734) ACCURATE CREATININE CLEARANCE IN PREDICTING GLOMERULAR FILTRATION RATE. ESTIMATED GFR IS NOT APPLICABLE FOR DIALYSIS PATIENTS. Specimen slightly ictericB-TYPE NATRIURETIC FACTOR (BNP)2019-05-28 06:19:00 Test Item Value Reference Range Comments B-TYPE NATRIURETIC PEPTIDE (BEAKER) (test 381 pg/mL 0-100 whsz=174) CALCIUM, [id number] 05:25:00 Test Item Value Reference Range Comments CALCIUM IONIZED (BEAKER) (test svzh=190) 1.03 mmol/L 1.12-1.27 PH, BLOOD (BEAKER) (test hmkx=3706) 7.49 POCT-GLUCOSE [id number] 22:42:00 Test Item Value Reference Range Comments POC-GLUCOSE METER (BEAKER) 174 mg/dL 70-110 TESTED AT [facility] [address] [facility] (test zprj=1240) [facility] [address] [id number] 17:57:00 Test Item Value Reference Range Comments SODIUM (BEAKER) (test olgp=788) 140 meq/L 136-145 POTASSIUM (BEAKER) (test 3.9 meq/L 3.5-5.1 Specimen slightly hemolyzed wvsj=698) CHLORIDE (BEAKER) (test 99 meq/L 98-107 mupe=528) CO2 (BEAKER) (test ocbn=932) 35 meq/L 22-29 Call [id number] 17:50:00 Test Item Value Reference Range Comments POC-GLUCOSE METER (BEAKER) 151 mg/dL 70-110 TESTED AT [place] [id number] [facility] (test ogmi=2291) [facility] [address] POCT-GLUCOSE [id number] 12:36:00 Test Item Value Reference Range Comments POC-GLUCOSE METER (BEAKER) 123 mg/dL 70-110 TESTED AT [address] (test salv=4780) [facility] [address] POCT-GLUCOSE [id number] 08:15:00 Test Item Value Reference Range Comments POC-GLUCOSE METER (BEAKER) 121 mg/dL 70-110 TESTED AT [address] (test pkkz=5215) [facility] [address] [id number] 07:00:00 Test Item Value Reference Range Comments PHOSPHORUS (BEAKER) (test rlod=708) 1.9 mg/dL 2.3-4.7 [id number] 07:00:00 Test Item Value Reference Range Comments MAGNESIUM (BEAKER) (test trsa=903) 1.6 mg/dL 1.6-2.6 COMPREHENSIVE METABOLIC [id number] 07:00:00 Test Item Value Reference Range Comments TOTAL PROTEIN (BEAKER) 4.9 gm/dL 6.0-8.3 (test fcon=278) ALBUMIN (BEAKER) (test 3.1 g/dL 3.5-5.0 cdlr=5775) ALKALINE PHOSPHATASE 75 U/L 40-150 (BEAKER) (test uxtx=899) BILIRUBIN TOTAL (BEAKER) 1.9 mg/dL 0.2-1.2 (test xkef=526) SODIUM (BEAKER) (test 139 meq/L 136-145 auzv=061) POTASSIUM (BEAKER) (test 4.3 meq/L 3.5-5.1 hhps=072) CHLORIDE (BEAKER) (test 99 meq/L 98-107 krpj=365) CO2 (BEAKER) (test 37 meq/L 22-29 bmsj=245) BLOOD UREA NITROGEN 16 mg/dL 7-21 (BEAKER) (test maqn=988) CREATININE (BEAKER) (test 1.29 mg/dL 0.57-1.25 gjyt=278) GLUCOSE RANDOM (BEAKER) 139 mg/dL 70-105 (test lcxn=582) CALCIUM (BEAKER) (test 8.5 mg/dL 8.4-10.2 ntij=801) AST (SGOT) (BEAKER) (test 23 U/L 5-34 wxqa=708) ALT (SGPT) (BEAKER) (test 8 U/L 6-55 kxpy=083) EGFR (BEAKER) (test 42 mL/min/1.73 sq m ESTIMATED GFR IS NOT hvxe=3464) ACCURATE CREATININE CLEARANCE IN PREDICTING GLOMERULAR FILTRATION RATE. ESTIMATED GFR IS NOT APPLICABLE FOR DIALYSIS PATIENTS. Specimen slightly ictericCBC W/PLT COUNT & AUTO [id number] 06:20 :00 Test Item Value Reference Range Comments WHITE BLOOD CELL COUNT (BEAKER) (test pngd=056) 4.7 K/ L 3.5-10.5 RED BLOOD CELL COUNT (BEAKER) (test rpkv=262) 2.71 M/ L 3.93-5.22 HEMOGLOBIN (BEAKER) (test qlvw=788) 7.5 GM/DL 11.2-15.7 HEMATOCRIT (BEAKER) (test gzyl=367) 23.9 % 34.1-44.9 MEAN CORPUSCULAR VOLUME (BEAKER) (test rfdn=173) 88.2 fL 79.4-94.8 MEAN CORPUSCULAR HEMOGLOBIN (BEAKER) (test 27.7 pg 25.6-32.2 jabz=013) MEAN CORPUSCULAR HEMOGLOBIN CONC (BEAKER) (test 31.4 GM/DL 32.2-35.5 cmps=863) RED CELL DISTRIBUTION WIDTH (BEAKER) (test 17.6 % 11.7-14.4 jmtw=240) PLATELET COUNT (BEAKER) (test exda=178) 137 K/CU MM 150-450 MEAN PLATELET VOLUME (BEAKER) (test wdlg=471) 9.6 fL 9.4-12.3 NUCLEATED RED BLOOD CELLS (BEAKER) (test 0 /100 WBC 0-0 mhnl=355) NEUTROPHILS RELATIVE PERCENT (BEAKER) (test 45 % ldmu=040) LYMPHOCYTES RELATIVE PERCENT (BEAKER) (test 33 % facy=885) MONOCYTES RELATIVE PERCENT (BEAKER) (test 12 % xsnj=718) EOSINOPHILS RELATIVE PERCENT (BEAKER) (test 9 % jpay=284) BASOPHILS RELATIVE PERCENT (BEAKER) (test 1 % zeok=522) NEUTROPHILS ABSOLUTE COUNT (BEAKER) (test 2.13 K/ L 1.56-6.13 qygy=995) LYMPHOCYTES ABSOLUTE COUNT (BEAKER) (test 1.56 K/ L 1.18-3.74 pzxi=265) MONOCYTES ABSOLUTE COUNT (BEAKER) (test 0.57 K/ L 0.24-0.36 ljxf=812) EOSINOPHILS ABSOLUTE COUNT (BEAKER) (test 0.41 K/ L 0.04-0.36 hmal=050) BASOPHILS ABSOLUTE COUNT (BEAKER) (test 0.05 K/ L 0.01-0.08 kdiv=772) IMMATURE GRANULOCYTES-RELATIVE PERCENT (BEAKER) 0 % 0-1 (test phwf=4903) CALCIUM, [id number] 05:29:00 Test Item Value Reference Range Comments CALCIUM IONIZED (BEAKER) (test ybzv=080) 1.02 mmol/L 1.12-1.27 PH, BLOOD (BEAKER) (test axjj=1013) 7.53 POCT-GLUCOSE [id number] 22:13:00 Test Item Value Reference Range Comments POC-GLUCOSE METER (BEAKER) 315 mg/dL 70-110 Notified ALEXI ENNIS/TESTED AT [facility] (test kccr=4527) [address] [facility] [address] POCT-GLUCOSE [id number] 18:43:00 Test Item Value Reference Range Comments POC-GLUCOSE METER (BEAKER) 204 mg/dL 70-110 TESTED AT [address] (test czne=2357) [place] [address] U/S, [id number] 17:14:00Reason for exam:->ascitesFINAL REPORT Ultrasound guided paracentesis. Clinical History: Ascites. Sedation: None. Operators: This procedure was performed by SARIKA Lee under direct supervision of Akil Chung M.D. Soccer Player: None. Estimated Blood Loss: < 1 cc. Specimen: 10,500 cc of serosanguineous fluid, samples sent to laboratory. Technique: Informed consent was obtained. The risks of pain, bleeding, infection, bowel perforation, injury to adjacent structures, and adverse medication reactions were discussed with the patient. After informed consent was obtained, the patient's abdomen was scanned. The RLQ of the abdomen was selected for paracentesis. After the largest fluid pocket area was marked, and the anterior abdominal wall was evaluated with color Doppler to exclude presence of blood vessels traversing the area, the skin was prepped and draped in the usual sterile manner. After local anesthesia was achieved with 2% lidocaine, a 5 Austrian one-step catheter was advanced into the peritoneal cavity under ultrasound guidance. After completion of drainage, the catheter was removed. There was no evidence of complication. Impression:Successful ultrasound guided paracentesis. Signed: Akil Chung MDReport Verified Date/Time: 05/26/2019 17:14:25 Reading Location : [facility] P006J Ultrasound Reading Room U/S, [id number] 17:12:00Reason for exam:->ascitesFINAL REPORT Ultrasound guided paracentesis Clinical History: Ascites. Sedation: None. Weir Fisher: Micheline Pena PA-C Supervising Physician: Shravan Ruiz MD Soccer Player: None. Estimated Blood Loss: < 1 mL. Specimen: 9200 mL of clear yellow fluid, samples sent to laboratory. Technique: Informed consent was obtained. The risks of pain, bleeding, infection, bowel perforation, injury to adjacent structures, and adverse medication reactions were discussed with the patient. After informed consent was obtained, the patient's abdomen was scanned. Theright lower quadrant of the abdomen was selected for paracentesis. After the largest fluid pocket area was marked, and the anterior abdominal wall was evaluated with color Doppler to exclude presence of blood vessels traversing the area, the skin was prepped and draped in the usual sterile manner. After local anesthesia was achieved with lidocaine, a 5 Austrian one-step catheter was advanced into theperitoneal cavity under ultrasound guidance. After completion of drainage, the catheter was removed.There was no evidence of complication. Impression:Successful ultrasound guided paracentesis. Signed:Shravan Ruiz MDReport Verified Date/Time: 05/26/2019 17:12:51 Reading Location: [facility] B1 P006J Ultrasound Reading Room POCT-GLUCOSE [id number] 17:02: 00 Test Item Value Reference Range Comments POC-GLUCOSE METER (BEAKER) 204 mg/dL 70-110 TESTED AT [address] (test ieqn=6068) [place] [id number] POCT-GLUCOSE [id number] 13:52:00 Test Item Value Reference Range Comments POC-GLUCOSE METER (BEAKER) 185 mg/dL 70-110 TESTED AT [address] (test dgre=3092) [place] [id number] BODY FLUID CELL COUNT WITH [id number] 13:12:00 Test Item Value Reference Range Comments APPEARANCE FLUID (BEAKER) (test iqqb=054) Slightly Hazy Clear COLOR FLUID (BEAKER) (test hxup=455) Yellow Colorless, Straw RBC FLUID (BEAKER) (test ldng=115) 3000 /cu mm <=1 ADJUSTED WBC FLUID (BEAKER) (test qrih=7768) 107 /cu mm <=5 LINING CELLS (BEAKER) (test rkzm=7498) 13 /cu mm <=1 NEUTROPHILS FLUID (BEAKER) (test xphl=3973) 0 % LYMPHS FLUID (BEAKER) (test tqxj=789) 21 % MONO/MACROPHAGE FLUID (BEAKER) (test 78 % bpjz=462) EOSINOPHILS FLUID (BEAKER) (test rohj=076) 1 % BASO FLUID (BEAKER) (test bxtk=134) 0 % CONTAINER BODY FLUID (BEAKER) (test EDTA Tube qlhr=9711) POCT-GLUCOSE [id number] 08:40:00 Test Item Value Reference Range Comments POC-GLUCOSE METER (BEAKER) 113 mg/dL 70-110 TESTED AT [address] (test iwva=5105) [place] [address] [id number] 07:18:00 Test Item Value Reference Range Comments T3 TOTAL (BEAKER) (test 34 ng/dL 48-159 Performed at [facility]. Refer. vtmu=494) Range:76-181 [id number] 05:45:00 Test Item Value Reference Range Comments PHOSPHORUS (BEAKER) (test oazg=538) 1.7 mg/dL 2.3-4.7 [id number] 05:45:00 Test Item Value Reference Range Comments MAGNESIUM (BEAKER) (test ggpr=891) 1.8 mg/dL 1.6-2.6 COMPREHENSIVE METABOLIC [id number] 05:45:00 Test Item Value Reference Range Comments TOTAL PROTEIN (BEAKER) 5.1 gm/dL 6.0-8.3 (test twyn=534) ALBUMIN (BEAKER) (test 3.1 g/dL 3.5-5.0 dtgi=1666) ALKALINE PHOSPHATASE 88 U/L 40-150 (BEAKER) (test mxeu=268) BILIRUBIN TOTAL (BEAKER) 1.6 mg/dL 0.2-1.2 (test uokj=059) SODIUM (BEAKER) (test 140 meq/L 136-145 gwvt=480) POTASSIUM (BEAKER) (test 3.8 meq/L 3.5-5.1 xzfl=930) CHLORIDE (BEAKER) (test 100 meq/L 98-107 jloq=236) CO2 (BEAKER) (test 36 meq/L 22-29 cgra=518) BLOOD UREA NITROGEN 16 mg/dL 7-21 (BEAKER) (test jnvw=455) CREATININE (BEAKER) (test 1.37 mg/dL 0.57-1.25 jdnh=113) GLUCOSE RANDOM (BEAKER) 159 mg/dL 70-105 (test mtrn=248) CALCIUM (BEAKER) (test 8.4 mg/dL 8.4-10.2 pzgr=327) AST (SGOT) (BEAKER) (test 26 U/L 5-34 cgbi=464) ALT (SGPT) (BEAKER) (test 10 U/L 6-55 tkcx=342) EGFR (BEAKER) (test 39 mL/min/1.73 sq m ESTIMATED GFR IS NOT xmtp=7090) ACCURATE CREATININE CLEARANCE IN PREDICTING GLOMERULAR FILTRATION RATE. ESTIMATED GFR IS NOT APPLICABLE FOR DIALYSIS PATIENTS. CALCIUM, [id number] 05:11:00 Test Item Value Reference Range Comments CALCIUM IONIZED (BEAKER) (test wdmp=240) 0.99 mmol/L 1.12-1.27 PH, BLOOD (BEAKER) (test yncv=3829) 7.57 CBC W/PLT COUNT & AUTO [id number] 05:04:00 Test Item Value Reference Range Comments WHITE BLOOD CELL COUNT (BEAKER) (test gaoh=778) 4.6 K/ L 3.5-10.5 RED BLOOD CELL COUNT (BEAKER) (test qkeg=033) 2.81 M/ L 3.93-5.22 HEMOGLOBIN (BEAKER) (test hlmy=200) 7.8 GM/DL 11.2-15.7 HEMATOCRIT (BEAKER) (test jzjc=530) 24.6 % 34.1-44.9 MEAN CORPUSCULAR VOLUME (BEAKER) (test otnj=096) 87.5 fL 79.4-94.8 MEAN CORPUSCULAR HEMOGLOBIN (BEAKER) (test 27.8 pg 25.6-32.2 bplt=591) MEAN CORPUSCULAR HEMOGLOBIN CONC (BEAKER) (test 31.7 GM/DL 32.2-35.5 diac=273) RED CELL DISTRIBUTION WIDTH (BEAKER) (test 17.2 % 11.7-14.4 seid=475) PLATELET COUNT (BEAKER) (test esse=585) 129 K/CU MM 150-450 MEAN PLATELET VOLUME (BEAKER) (test free=380) 9.0 fL 9.4-12.3 NUCLEATED RED BLOOD CELLS (BEAKER) (test 0 /100 WBC 0-0 scey=246) NEUTROPHILS RELATIVE PERCENT (BEAKER) (test 47 % nyia=928) LYMPHOCYTES RELATIVE PERCENT (BEAKER) (test 29 % plzb=939) MONOCYTES RELATIVE PERCENT (BEAKER) (test 13 % hnzv=169) EOSINOPHILS RELATIVE PERCENT (BEAKER) (test 11 % bibq=762) BASOPHILS RELATIVE PERCENT (BEAKER) (test 1 % uzbt=345) NEUTROPHILS ABSOLUTE COUNT (BEAKER) (test 2.17 K/ L 1.56-6.13 half=280) LYMPHOCYTES ABSOLUTE COUNT (BEAKER) (test 1.32 K/ L 1.18-3.74 cwtn=772) MONOCYTES ABSOLUTE COUNT (BEAKER) (test 0.58 K/ L 0.24-0.36 lmxf=421) EOSINOPHILS ABSOLUTE COUNT (BEAKER) (test 0.49 K/ L 0.04-0.36 gdrs=995) BASOPHILS ABSOLUTE COUNT (BEAKER) (test 0.06 K/ L 0.01-0.08 saqv=297) IMMATURE GRANULOCYTES-RELATIVE PERCENT (BEAKER) 0 % 0-1 (test ttzd=5329) POCT-GLUCOSE [id number] 23:10:00 Test Item Value Reference Range Comments POC-GLUCOSE METER (BEAKER) 239 mg/dL 70-110 TESTED AT [address] (test foim=3346) [place] [address] [id number] 19:02:00 Test Item Value Reference Range Comments SODIUM (BEAKER) (test bxlz=100) 138 meq/L 136-145 POTASSIUM (BEAKER) (test bcgd=384) 3.7 meq/L 3.5-5.1 CHLORIDE (BEAKER) (test gmdz=472) 100 meq/L 98-107 CO2 (BEAKER) (test jsvj=322) 31 meq/L 22-29 Call [id number] with resultsPOCT-GLUCOSE [id number] 16:50:00 Test Item Value Reference Range Comments POC-GLUCOSE METER (BEAKER) 203 mg/dL 70-110 TESTED AT [address] (test scqc=5772) [place] [address] POCT-GLUCOSE [id number] 12:49:00 Test Item Value Reference Range Comments POC-GLUCOSE METER (BEAKER) 219 mg/dL 70-110 TESTED AT [address] (test iemn=6332) [place] [address] ANTI-NUCLEAR ANTIBODY (QUE)2019-05-25 10:03:00 Test Item Value Reference Range Comments ANTI-NUCLEAR ANTIBODY (QUE) (BEAKER) (test Negative Negative guwn=906) Test performed by IFA method.Test performed by IFA method.POCT-GLUCOSE [id number] 08:54:00 Test Item Value Reference Range Comments POC-GLUCOSE METER (BEAKER) 125 mg/dL 70-110 TESTED AT [address] (test oluf=7947) [place] [address] BASIC METABOLIC [id number] 07:41:00 Test Item Value Reference Range Comments SODIUM (BEAKER) (test 141 meq/L 136-145 vuid=452) POTASSIUM (BEAKER) (test 3.0 meq/L 3.5-5.1 jljh=735) CHLORIDE (BEAKER) (test 101 meq/L 98-107 afrr=581) CO2 (BEAKER) (test 35 meq/L 22-29 ugxj=266) BLOOD UREA NITROGEN 16 mg/dL 7-21 (BEAKER) (test qskr=539) CREATININE (BEAKER) (test 1.31 mg/dL 0.57-1.25 ilod=823) GLUCOSE RANDOM (BEAKER) 136 mg/dL 70-105 (test nmbf=105) CALCIUM (BEAKER) (test 7.9 mg/dL 8.4-10.2 ehxl=693) EGFR (BEAKER) (test 41 mL/min/1.73 sq m ESTIMATED GFR IS NOT krva=1537) ACCURATE CREATININE CLEARANCE IN PREDICTING GLOMERULAR FILTRATION RATE. ESTIMATED GFR IS NOT APPLICABLE FOR DIALYSIS PATIENTS. [id number] 07:32:00 Test Item Value Reference Range Comments PHOSPHORUS (BEAKER) (test kvyf=440) 2.0 mg/dL 2.3-4.7 [id number] 07:32:00 Test Item Value Reference Range Comments MAGNESIUM (BEAKER) (test trzm=144) 1.6 mg/dL 1.6-2.6 HEPATIC FUNCTION [id number] 07:32:00 Test Item Value Reference Range Comments TOTAL PROTEIN (BEAKER) (test xidr=953) 4.9 gm/dL 6.0-8.3 ALBUMIN (BEAKER) (test ucud=6819) 3.0 g/dL 3.5-5.0 BILIRUBIN TOTAL (BEAKER) (test hvyg=879) 1.4 mg/dL 0.2-1.2 BILIRUBIN DIRECT (BEAKER) (test kmlr=800) 0.7 mg/dL 0.1-0.5 ALKALINE PHOSPHATASE (BEAKER) (test uhgs=085) 86 U/L 40-150 AST (SGOT) (BEAKER) (test etcj=853) 25 U/L 5-34 ALT (SGPT) (BEAKER) (test jjrz=270) 10 U/L 6-55 CBC W/PLT COUNT & AUTO [id number] 06:11:00 Test Item Value Reference Range Comments WHITE BLOOD CELL COUNT (BEAKER) (test irdd=184) 4.2 K/ L 3.5-10.5 RED BLOOD CELL COUNT (BEAKER) (test aelw=954) 2.68 M/ L 3.93-5.22 HEMOGLOBIN (BEAKER) (test nzgv=309) 7.4 GM/DL 11.2-15.7 HEMATOCRIT (BEAKER) (test vwml=007) 23.5 % 34.1-44.9 MEAN CORPUSCULAR VOLUME (BEAKER) (test gbrn=823) 87.7 fL 79.4-94.8 MEAN CORPUSCULAR HEMOGLOBIN (BEAKER) (test 27.6 pg 25.6-32.2 izmc=483) MEAN CORPUSCULAR HEMOGLOBIN CONC (BEAKER) (test 31.5 GM/DL 32.2-35.5 gqpq=157) RED CELL DISTRIBUTION WIDTH (BEAKER) (test 18.2 % 11.7-14.4 kbwk=975) PLATELET COUNT (BEAKER) (test flxn=861) 140 K/CU MM 150-450 MEAN PLATELET VOLUME (BEAKER) (test hnlk=724) 10.3 fL 9.4-12.3 NUCLEATED RED BLOOD CELLS (BEAKER) (test 0 /100 WBC 0-0 ucqq=180) NEUTROPHILS RELATIVE PERCENT (BEAKER) (test 44 % nxqb=411) LYMPHOCYTES RELATIVE PERCENT (BEAKER) (test 33 % ifhi=459) MONOCYTES RELATIVE PERCENT (BEAKER) (test 12 % cvdq=591) EOSINOPHILS RELATIVE PERCENT (BEAKER) (test 10 % gkhy=526) BASOPHILS RELATIVE PERCENT (BEAKER) (test 2 % avdb=269) NEUTROPHILS ABSOLUTE COUNT (BEAKER) (test 1.82 K/ L 1.56-6.13 ldug=556) LYMPHOCYTES ABSOLUTE COUNT (BEAKER) (test 1.36 K/ L 1.18-3.74 lzxm=172) MONOCYTES ABSOLUTE COUNT (BEAKER) (test 0.48 K/ L 0.24-0.36 xikr=783) EOSINOPHILS ABSOLUTE COUNT (BEAKER) (test 0.42 K/ L 0.04-0.36 yrlx=523) BASOPHILS ABSOLUTE COUNT (BEAKER) (test 0.07 K/ L 0.01-0.08 uonf=553) IMMATURE GRANULOCYTES-RELATIVE PERCENT (BEAKER) 0 % 0-1 (test qpgd=9019) PROTHROMBIN [id number] 05:31:00 Test Item Value Reference Range Comments PROTIME (BEAKER) (test itaw=803) 14.8 seconds 11.9-14.2 INR (BEAKER) (test xepk=266) 1.2 <=5.9 Effective 04/01/2019: PT Reference Range ChangeNew: 11.9-14.2 Previous: 11.7- 14.7RECOMMENDED COUMADIN/WARFARIN INR THERAPY RANGESSTANDARD DOSE: 2.0-3.0 Includes: PROPHYLAXIS for venous thrombosis, systemic embolization; TREATMENT for venous thrombosis and/or pulmonary embolus.HIGH RISK: Target INR is2.5-3.5 for patients wiht mechanical heart valves.BLOOD [id number] 02:01:00 Test Item Value Reference Range Comments CULTURE (BEAKER) (test cqng=2788) No growth in 5 days BLOOD [id number] 02:01:00 Test Item Value Reference Range Comments CULTURE (BEAKER) (test yjfm=6308) No growth in 5 days POCT-GLUCOSE [id number] 23:07:00 Test Item Value Reference Range Comments POC-GLUCOSE METER (BEAKER) 217 mg/dL 70-110 TESTED AT [address] (test nfiz=1349) [place] [id number] POCT-GLUCOSE [id number] 17:54:00 Test Item Value Reference Range Comments POC-GLUCOSE METER (BEAKER) 138 mg/dL 70-110 TESTED AT [address] (test etwc=6372) [place] [id number] POCT-GLUCOSE [id number] 12:22:00 Test Item Value Reference Range Comments POC-GLUCOSE METER (BEAKER) 114 mg/dL 70-110 TESTED AT [address] (test axwl=8154) [place] [id number] POCT-GLUCOSE [id number] 07:39:00 Test Item Value Reference Range Comments POC-GLUCOSE METER (BEAKER) 124 mg/dL 70-110 TESTED AT [address] (test apfs=3073) [place] [id number] HEPATIC FUNCTION [id number] 05:49:00 Test Item Value Reference Range Comments TOTAL PROTEIN (BEAKER) (test fget=148) 5.1 gm/dL 6.0-8.3 ALBUMIN (BEAKER) (test ldcn=1314) 2.9 g/dL 3.5-5.0 BILIRUBIN TOTAL (BEAKER) (test zpxx=818) 1.3 mg/dL 0.2-1.2 BILIRUBIN DIRECT (BEAKER) (test nnup=134) 0.7 mg/dL 0.1-0.5 ALKALINE PHOSPHATASE (BEAKER) (test lvrz=658) 91 U/L 40-150 AST (SGOT) (BEAKER) (test tssq=646) 30 U/L 5-34 ALT (SGPT) (BEAKER) (test ozeo=664) 10 U/L 6-55 BASIC METABOLIC [id number] 05:49:00 Test Item Value Reference Range Comments SODIUM (BEAKER) (test 140 meq/L 136-145 wqby=708) POTASSIUM (BEAKER) (test 3.2 meq/L 3.5-5.1 bszo=721) CHLORIDE (BEAKER) (test 103 meq/L 98-107 ojyb=454) CO2 (BEAKER) (test 27 meq/L 22-29 fjzy=760) BLOOD UREA NITROGEN 17 mg/dL 7-21 (BEAKER) (test odyf=656) CREATININE (BEAKER) (test 1.30 mg/dL 0.57-1.25 tsvq=435) GLUCOSE RANDOM (BEAKER) 143 mg/dL 70-105 (test pais=777) CALCIUM (BEAKER) (test 7.9 mg/dL 8.4-10.2 jwpw=121) EGFR (BEAKER) (test 42 mL/min/1.73 sq m ESTIMATED GFR IS NOT zqlq=8126) ACCURATE CREATININE CLEARANCE IN PREDICTING GLOMERULAR FILTRATION RATE. ESTIMATED GFR IS NOT APPLICABLE FOR DIALYSIS PATIENTS. PROTHROMBIN TIME/[id number] 05:32:00 Test Item Value Reference Range Comments PROTIME (BEAKER) (test cgbr=717) 14.7 seconds 11.9-14.2 INR (BEAKER) (test pkdg=373) 1.2 <=5.9 Effective 04/01/2019: PT Reference Range ChangeNew: 11.9-14.2 Previous: 11.7- 14.7RECOMMENDED COUMADIN/WARFARIN INR THERAPY RANGESSTANDARD DOSE: 2.0-3.0 Includes: PROPHYLAXIS for venous thrombosis, systemic embolization; TREATMENT for venous thrombosis and/or pulmonary embolus.HIGH RISK: Target INR is2.5-3.5 for patients wiht mechanical heart valves.CBC W/PLT COUNT & AUTO [id number] 05:09:00 Test Item Value Reference Range Comments WHITE BLOOD CELL COUNT (BEAKER) (test brfn=307) 4.7 K/ L 3.5-10.5 RED BLOOD CELL COUNT (BEAKER) (test ptuw=177) 2.86 M/ L 3.93-5.22 HEMOGLOBIN (BEAKER) (test qtju=153) 7.9 GM/DL 11.2-15.7 HEMATOCRIT (BEAKER) (test xmwc=075) 25.3 % 34.1-44.9 MEAN CORPUSCULAR VOLUME (BEAKER) (test lhwh=241) 88.5 fL 79.4-94.8 MEAN CORPUSCULAR HEMOGLOBIN (BEAKER) (test 27.6 pg 25.6-32.2 geed=715) MEAN CORPUSCULAR HEMOGLOBIN CONC (BEAKER) (test 31.2 GM/DL 32.2-35.5 ckeb=778) RED CELL DISTRIBUTION WIDTH (BEAKER) (test 17.4 % 11.7-14.4 qztr=143) PLATELET COUNT (BEAKER) (test kwfk=341) 141 K/CU MM 150-450 MEAN PLATELET VOLUME (BEAKER) (test dapq=305) 9.3 fL 9.4-12.3 NUCLEATED RED BLOOD CELLS (BEAKER) (test 0 /100 WBC 0-0 qyio=577) NEUTROPHILS RELATIVE PERCENT (BEAKER) (test 50 % cclf=593) LYMPHOCYTES RELATIVE PERCENT (BEAKER) (test 28 % ludx=598) MONOCYTES RELATIVE PERCENT (BEAKER) (test 11 % wxjs=101) EOSINOPHILS RELATIVE PERCENT (BEAKER) (test 10 % nsfv=821) BASOPHILS RELATIVE PERCENT (BEAKER) (test 1 % frxl=699) NEUTROPHILS ABSOLUTE COUNT (BEAKER) (test 2.33 K/ L 1.56-6.13 mubu=548) LYMPHOCYTES ABSOLUTE COUNT (BEAKER) (test 1.31 K/ L 1.18-3.74 vqlr=766) MONOCYTES ABSOLUTE COUNT (BEAKER) (test 0.51 K/ L 0.24-0.36 nwbp=781) EOSINOPHILS ABSOLUTE COUNT (BEAKER) (test 0.46 K/ L 0.04-0.36 taos=674) BASOPHILS ABSOLUTE COUNT (BEAKER) (test 0.06 K/ L 0.01-0.08 otgh=514) IMMATURE GRANULOCYTES-RELATIVE PERCENT (BEAKER) 0 % 0-1 (test urww=1614) BLOOD GAS, [id number] 22:21:00 Test Item Value Reference Range Comments PH ARTERIAL (BEAKER) (test mrje=662) 7.49 7.35-7.45 PCO2 ARTERIAL (BEAKER) (test hkwo=300) 43 mmHg 35-45 PO2 ARTERIAL (BEAKER) (test lnev=157) 56 mmHg 80-90 O2 SATURATION ARTERIAL (BEAKER) (test yjxj=473) 92.5 % 96.0-97.0 HCO3 ARTERIAL (BEAKER) (test wmwu=139) 32 mmol/L 21-29 BASE EXCESS ARTERIAL (BEAKER) (test mzur=783) 7.9 mmol/L -2.0-3.0 PATIENT TEMPERATURE (BEAKER) (test lrba=7926) 35.8 C FIO2 (BEAKER) (test uaqb=2906) 21.0 % POCT-GLUCOSE [id number] 21:14:00 Test Item Value Reference Range Comments POC-GLUCOSE METER (BEAKER) 259 mg/dL 70-110 TESTED AT [place] [id number] [facility] (test lmvm=0339) [facility] [address] BODY FLUID CULTURE + GRAM [id number] 18:00:00 Test Item Value Reference Range Comments CULTURE (BEAKER) (test eeby=1314) No growth GRAM STAIN RESULT (BEAKER) (test No WBCs xpbw=4872) GRAM STAIN RESULT (BEAKER) (test No organisms seen cbbr=12500) POCT-GLUCOSE [id number] 17:23:00 Test Item Value Reference Range Comments POC-GLUCOSE METER (BEAKER) 201 mg/dL 70-110 TESTED AT [address] (test fujv=0823) [facility] [address] RAD, MANDIBLE, MIN 4 [id number] 15:00:00Reason for exam:->liver transplant evalShould this be performed at the bedside?->YesFINAL REPORT TECHNIQUE: Five views of the mandible. INDICATION: Liver transplant evaluation. COMPARISON: None. FINDINGS:No acute fractures or dislocations. No suspicious osseous lesions. No significant dental disease. No periapical lucencies. Mandible is unremarkable. Mild degenerative changes of the imaged cervical spine. Paranasal sinuses are clear. Soft tissues are unremarkable. IMPRESSION:Unremarkable exam. . Signed: Giovanni Martinez MDReport Verified Date/Time: 05/23/201915:00:10 Reading Location: [facility] [address] [place] [address] Reading Room CRYPTOCOCCAL [id number] 14:59:00 Test Item Value Reference Range Comments CRYPTOCOCCAL ANTIGEN, SERUM (BEAKER) (test Negative Negative, Interference iyze=9051) [id number] 14:45:00 Test Item Value Reference Range Comments RPR SCREEN (BEAKER) (test aiul=603) Nonreactive Nonreactive CYTOMEGALOVIRUS ANTIBODY, [id number] 13:48:00 Test Item Value Reference Range Comments CYTOMEGALOVIRUS, IGG (BEAKER) (test eodm=5257) Positive Negative, Equivocal CMV IgG Result Interpretation: </=0.8 Al Negative 0.9-1.0 Al Equivocal &gt ;/=1.1 Al PositiveCYTOMEGALOVIRUS ANTIBODY, [id number] 13:48:00 Test Item Value Reference Range Comments CYTOMEGALOVIRUS IGM ANTIBODY (BEAKER) (test Negative Negative, Equivocal tlnp=8853) CMV IgM Result Interpretation: </=0.8 Al Negative 0.9-1.0 Al Equivocal >/=1.1 Al PositiveEBV ANTIBODY, [id number] 13:48:00 Test Item Value Reference Range Comments BERTRAND BOLES VIRAL CAPSID ANTIGEN IGG (BEAKER) Positive Negative, Equivocal (test izfm=1611) Bertrand Boles Viral Capsid Antigen IgG Result Interpretation: </=0.8 Al Negative 0.9-1.0 Al Equivocal >/=1.1 Al PositiveEBV ANTIBODY, [id number] 13:48:00 Test Item Value Reference Range Comments BERTRAND BOLES VIRAL CAPSID ANTIGEN IGM (BEAKER) Negative Negative, Equivocal (test eylm=8414) Bertrand Boles Viral Capsid Antigen IgM Result Interpretation: </=0.8 Al Negative 0.9-1.0 Al Equivocal >/=1.1 Al PositiveVARICELLA ZOSTER ANTIBODY , [id number] 13:48:00 Test Item Value Reference Range Comments VARICELLA ZOSTER IGG (AL) (BEAKER) (test cxzj=6412) 0.9 VARICELLA ZOSTER RESULT INTERPRETATIONS: <=0.8 Al Nonreactive: Presumed non-immune to VZV 0.9-1.0 Al Equivocal >=1.1 Al Reactive: Presumed immune to VZVRUBELLA ANTIBODY, [id number] 13:48:00 Test Item Value Reference Range Comments RUBELLA IGG QUANTITATION (BEAKER) (test xdqf=505) 12.0 IU/mL <8.0 Rubella IgG Result Interpretation: </=7.0 IU/mL Negative - Presumed non- immune 8.0 - 9.9 IU/mL Equivocal >=10.0 IU/mL Positive - Presumed immunePOCT-GLUCOSE [id number] 11:41:00 Test Item Value Reference Range Comments POC-GLUCOSE METER (BEAKER) 162 mg/dL 70-110 TESTED AT [address] (test mxxm=7058) [facility] [address] POCT-GLUCOSE [id number] 10:06:00 Test Item Value Reference Range Comments POC-GLUCOSE METER (BEAKER) 95 mg/dL 70-110 TESTED AT [address] (test tpeh=2395) [facility] [address] IRON, TIBC, % SAT. (WITHOUT FERRITIN)2019-05-23 07:32:00 Test Item Value Reference Range Comments IRON (BEAKER) (test duls=598) 30.0 ug/dL 40.0-160.0 TOTAL IRON BINDING CAPACITY (BEAKER) (test 143 ug/dL 250-450 mdcu=556) IRON % SATURATION (2) (BEAKER) (test frgl=3945) 21 % 20-55 [id number] 06:29:00 Test Item Value Reference Range Comments PHOSPHORUS (BEAKER) (test gkna=820) 1.9 mg/dL 2.3-4.7 [id number] 06:29:00 Test Item Value Reference Range Comments MAGNESIUM (BEAKER) (test viyn=240) 1.5 mg/dL 1.6-2.6 HEPATIC FUNCTION [id number] 06:29:00 Test Item Value Reference Range Comments TOTAL PROTEIN (BEAKER) (test xddr=765) 5.2 gm/dL 6.0-8.3 ALBUMIN (BEAKER) (test iznp=2810) 3.0 g/dL 3.5-5.0 BILIRUBIN TOTAL (BEAKER) (test tcia=427) 1.6 mg/dL 0.2-1.2 BILIRUBIN DIRECT (BEAKER) (test gqxw=761) 0.8 mg/dL 0.1-0.5 ALKALINE PHOSPHATASE (BEAKER) (test pncr=774) 87 U/L 40-150 AST (SGOT) (BEAKER) (test cscw=103) 24 U/L 5-34 ALT (SGPT) (BEAKER) (test sgnm=127) 11 U/L 6-55 COMPREHENSIVE METABOLIC [id number] 06:29:00 Test Item Value Reference Range Comments TOTAL PROTEIN (BEAKER) 5.2 gm/dL 6.0-8.3 (test smme=300) ALBUMIN (BEAKER) (test 3.0 g/dL 3.5-5.0 ylop=8079) ALKALINE PHOSPHATASE 87 U/L 40-150 (BEAKER) (test zdmq=187) BILIRUBIN TOTAL (BEAKER) 1.6 mg/dL 0.2-1.2 (test oidc=138) SODIUM (BEAKER) (test 139 meq/L 136-145 pcao=917) POTASSIUM (BEAKER) (test 3.3 meq/L 3.5-5.1 zhlo=212) CHLORIDE (BEAKER) (test 104 meq/L 98-107 toen=517) CO2 (BEAKER) (test 30 meq/L 22-29 uceh=208) BLOOD UREA NITROGEN 18 mg/dL 7-21 (BEAKER) (test zeam=912) CREATININE (BEAKER) (test 1.41 mg/dL 0.57-1.25 umnz=629) GLUCOSE RANDOM (BEAKER) 102 mg/dL 70-105 (test vtub=022) CALCIUM (BEAKER) (test 8.1 mg/dL 8.4-10.2 pqmj=095) AST (SGOT) (BEAKER) (test 24 U/L 5-34 rgrb=852) ALT (SGPT) (BEAKER) (test 11 U/L 6-55 jyqo=899) EGFR (BEAKER) (test 38 mL/min/1.73 sq m ESTIMATED GFR IS NOT slte=3062) ACCURATE CREATININE CLEARANCE IN PREDICTING GLOMERULAR FILTRATION RATE. ESTIMATED GFR IS NOT APPLICABLE FOR DIALYSIS PATIENTS. CBC W/PLT COUNT & AUTO [id number] 05:46:00 Test Item Value Reference Range Comments WHITE BLOOD CELL COUNT (BEAKER) (test dxxd=101) 4.9 K/ L 3.5-10.5 RED BLOOD CELL COUNT (BEAKER) (test kwcg=445) 2.83 M/ L 3.93-5.22 HEMOGLOBIN (BEAKER) (test jrgl=944) 8.0 GM/DL 11.2-15.7 HEMATOCRIT (BEAKER) (test kyjb=873) 24.4 % 34.1-44.9 MEAN CORPUSCULAR VOLUME (BEAKER) (test undr=596) 86.2 fL 79.4-94.8 MEAN CORPUSCULAR HEMOGLOBIN (BEAKER) (test 28.3 pg 25.6-32.2 gamv=564) MEAN CORPUSCULAR HEMOGLOBIN CONC (BEAKER) (test 32.8 GM/DL 32.2-35.5 elmk=631) RED CELL DISTRIBUTION WIDTH (BEAKER) (test 17.6 % 11.7-14.4 zmes=035) PLATELET COUNT (BEAKER) (test wmwg=849) 147 K/CU MM 150-450 MEAN PLATELET VOLUME (BEAKER) (test esge=465) 9.1 fL 9.4-12.3 NUCLEATED RED BLOOD CELLS (BEAKER) (test 0 /100 WBC 0-0 kdku=461) NEUTROPHILS RELATIVE PERCENT (BEAKER) (test 51 % jhtu=608) LYMPHOCYTES RELATIVE PERCENT (BEAKER) (test 27 % thcf=435) MONOCYTES RELATIVE PERCENT (BEAKER) (test 11 % qfns=738) EOSINOPHILS RELATIVE PERCENT (BEAKER) (test 10 % qnqb=224) BASOPHILS RELATIVE PERCENT (BEAKER) (test 1 % mgnz=325) NEUTROPHILS ABSOLUTE COUNT (BEAKER) (test 2.51 K/ L 1.56-6.13 lolq=191) LYMPHOCYTES ABSOLUTE COUNT (BEAKER) (test 1.30 K/ L 1.18-3.74 fdak=449) MONOCYTES ABSOLUTE COUNT (BEAKER) (test 0.54 K/ L 0.24-0.36 tqad=680) EOSINOPHILS ABSOLUTE COUNT (BEAKER) (test 0.48 K/ L 0.04-0.36 gjli=179) BASOPHILS ABSOLUTE COUNT (BEAKER) (test 0.06 K/ L 0.01-0.08 khlo=810) IMMATURE GRANULOCYTES-RELATIVE PERCENT (BEAKER) 0 % 0-1 (test xrzp=1835) PROTHROMBIN [id number] 05:46:00 Test Item Value Reference Range Comments PROTIME (BEAKER) (test asws=833) 14.9 seconds 11.9-14.2 INR (BEAKER) (test rjlm=407) 1.2 <=5.9 Effective 04/01/2019: PT Reference Range ChangeNew: 11.9-14.2 Previous: 11.7- 14.7RECOMMENDED COUMADIN/WARFARIN INR THERAPY RANGESSTANDARD DOSE: 2.0-3.0 Includes: PROPHYLAXIS for venous thrombosis, systemic embolization; TREATMENT for venous thrombosis and/or pulmonary embolus.HIGH RISK: Target INR is2.5-3.5 for patients wiht mechanical heart valves.CALCIUM, [id number] 05:44:00 Test Item Value Reference Range Comments CALCIUM IONIZED (BEAKER) (test ppmm=915) 0.99 mmol/L 1.12-1.27 PH, BLOOD (BEAKER) (test dyol=3940) 7.48 HEMOGLOBIN [id number] 22:07:00 Test Item Value Reference Range Comments HEMOGLOBIN A1C (BEAKER) (test pvwr=632) 8.1 % 4.3-6.1 POCT-GLUCOSE [id number] 21:38:00 Test Item Value Reference Range Comments POC-GLUCOSE METER (BEAKER) 213 mg/dL 70-110 TESTED AT [address] (test dpwg=3223) [facility] [address] POCT-GLUCOSE [id number] 18:07:00 Test Item Value Reference Range Comments POC-GLUCOSE METER (BEAKER) 212 mg/dL 70-110 TESTED AT [address] (test zqiy=9737) [facility] [address] ALPHA FETOPROTEIN (AFP), TUMOR [id number] 17:50:00 Test Item Value Reference Range Comments ALPHA-FETOPROTEIN (BEAKER) (test vtfb=8594) < ng/mL <10.0 HEPATITIS C [id number] 17:49:00 Test Item Value Reference Range Comments HEPATITIS C ANTIBODY (BEAKER) (test eolz=156) Nonreactive Nonreactive VITAMIN D, [id number] 15:10:00 Test Item Value Reference Range Comments VITAMIN D 25-OH (BEAKER) (test medt=1841) < ng/mL 6.6-49.9 Effective 08/14/2017: Reference Range ChangeNew: 6.6-49.9 ng/mL Previous: 13.0 -47.8 ng/mLRecommended Vitamin D Target Range: 30.0-40.0 ng/mLHEPATITIS B SURFACE [id number] 15:10:00 Test Item Value Reference Range Comments HEPATITIS B SURFACE ANTIBODY (BEAKER) (test < mIU/mL <8.0 wmvk=909) CARCINOEMBRYONIC ANTIGEN (CEA)2019-05-22 15:10:00 Test Item Value Reference Range Comments CARCINOEMBRYONIC ANTIGEN (BEAKER) (test ycai=145) < ng/mL 0.0-5.0 HEPATITIS B CORE ANTIBODY, [id number] 15:08:00 Test Item Value Reference Range Comments HEPATITIS B CORE IGM ANTIBODY (BEAKER) (test Nonreactive Nonreactive xtvt=596) HEPATITIS A ANTIBODY, [id number] 15:08:00 Test Item Value Reference Range Comments HEPATITIS A IGM ANTIBODY (BEAKER) (test Nonreactive Nonreactive pkng=931) HEPATITIS A ANTIBODY, [id number] 15:08:00 Test Item Value Reference Range Comments HEPATITIS A IGG ANTIBODY (BEAKER) (test Nonreactive Nonreactive spda=7937) HEPATITIS B SURFACE [id number] 15:05:00 Test Item Value Reference Range Comments HEPATITIS B SURFACE ANTIGEN (2) (BEAKER) (test Nonreactive Nonreactive vnrf=1531) HEPATITIS B CORE ANTIBODY, [id number] 15:05:00 Test Item Value Reference Range Comments HEPATITIS B CORE TOTAL ANTIBODY (BEAKER) (test Nonreactive Nonreactive urcb=322) HIV-1 ANTIGEN WITH HIV-1/2 [id number] 15:05:00 Test Item Value Reference Range Comments HIV-1 ANTIGEN WITH HIV 1\\T\\2 ANTIBODY (2) Nonreactive Nonreactive (BEAKER) (test inmi=0820) URIC [id number] 14:46:00 Test Item Value Reference Range Comments URIC ACID (BEAKER) (test ayjr=146) 5.7 mg/dL 2.6-7.2 LIPID [id number] 14:46:00 Test Item Value Reference Range Comments TRIGLYCERIDES (BEAKER) (test javl=592) 71 mg/dL CHOLESTEROL (BEAKER) (test xcxr=566) 72 mg/dL HDL CHOLESTEROL (BEAKER) (test ozcb=242) 20 mg/dL LDL CHOLESTEROL CALCULATED (BEAKER) (test yxto=169) 38 mg/dL Triglyceride Reference Range: Low Risk <150 Borderline 150- 199 High Risk 200-499 Very High Risk >=500Cholesterol Reference Range: Low Risk <200 Borderline 200-239 High Risk > 240HDL Cholesterol Reference Range: Low Risk >=60 High Risk <40LDL Cholesterol Reference Range: Optimal <100 Near Optimal 100-129 Borderline 130-159 High 160-189 Very High >=190BILIRUBIN, [id number] 14:46:00 Test Item Value Reference Range Comments BILIRUBIN DIRECT (BEAKER) (test isuj=432) 0.8 mg/dL 0.1-0.5 GAMMA GLUTAMYL TRANSFERASE (GGT)2019-05-22 14:46:00 Test Item Value Reference Range Comments GAMMA GLUTAMYL TRANSFERASE (BEAKER) (test trvu=207) 10 U/L 9-64 [id number] 14:45:00 Test Item Value Reference Range Comments ETHANOL (BEAKER) (test qzwt=329) < mg/dL <=10 [id number] 14:44:00 Test Item Value Reference Range Comments TRANSFERRIN (BEAKER) (test eoxa=072) 109 mg/dL 174-382 IRON, TIBC, % SAT. (WITHOUT FERRITIN)2019-05-22 14:44:00 Test Item Value Reference Range Comments IRON (BEAKER) (test zeaj=752) 40.0 ug/dL 40.0-160.0 TOTAL IRON BINDING CAPACITY (BEAKER) (test 136 ug/dL 250-450 hnmr=694) IRON % SATURATION (2) (BEAKER) (test fpiw=4357) 29 % 20-55 [id number] 14:34:00 Test Item Value Reference Range Comments PARTIAL THROMBOPLASTIN TIME (BEAKER) (test 35.7 seconds 22.5-36.0 opad=233) [id number] 14:33:00 Test Item Value Reference Range Comments FIBRINOGEN LEVEL (BEAKER) (test jevq=237) 282 mg/dl 225-434 U/S, ABDOMINAL, WITH [id number] 14:09:00Reason for exam:->TIPS evaluationFINAL REPORT Ultrasound of the Abdomen, 2018. Clinical History: TIPS. Comparison: 02/18/2018. Discussion:Sonographic evaluation of the abdomen is performed. In addition, color Doppler and spectral wave form analysis evaluations of the abdominal vasculature are performed. Liver: 11.2 cm in length at the right midclavicular line, normal in size. Cirrhotic morphology. [place]. Biliary tree: Common duct 4 mm. No biliary dilatation. Gallbladder: Decompressed. No gallstones visualized. Pancreas: Head, body, and proximal tail unremarkable. Ascites: Diffuse ascites noted. Spleen: 10.2 cm in length, normal in size. Kidneys: Right kidney 10.8 cm in length, normalin size, with cortical thickness of 1.4 cm. Left kidney 12.0 cm in length, normal in size, with cortical thickness of 1.8 cm. Normal cortical echogenicity. No mass. No shadowing calculus. No hydronephrosis. IVC/Aorta: Segments partially seen. Unremarkable. Doppler: Doppler interrogation of the liver demonstrates a main portal vein diameter measuring 1.6 cm with a peak systolic velocity of 60 cm/sec. Hepatopetal inflow is seen in the right, left, main portal and splenic veins. The resistive indices in the proper, right and left hepatic arteries are 0.8, 0.8 and 0.8 respectively. TIPS evaluation demonstrates appropriate directionality of flow. Velocity in the proximal aspect measures 124 cm/s. Velocity in the mid segment measures 122 cm/s. Velocity in the distal segment measures 131 cm/s. Outflow with appropriate directionality is seen in the IVC, hepatic venous confluence as well as the right, middle and left hepatic veins. Impression:1. Cirrhosis.2. Ascites.3. TIPS evaluation as above. Signed: Missy Momin Verified Date/Time: 05/22/2019 14:09:52 Reading Location: [address] Radiology Reading Room Electronically signed by: MISSY MOMIN M.D. on 2018 02:09 PMPOCT-GLUCOSE [id number] 12:31:00 Test Item Value Reference Range Comments POC-GLUCOSE METER (BEAKER) 252 mg/dL 70-110 [address] [facility] [address] COMPREHENSIVE METABOLIC [id number] 08:22:00 Test Item Value Reference Range Comments TOTAL PROTEIN (BEAKER) 4.8 gm/dL 6.0-8.3 (test bjji=070) ALBUMIN (BEAKER) (test 3.0 g/dL 3.5-5.0 wder=8054) ALKALINE PHOSPHATASE 77 U/L 40-150 (BEAKER) (test kzkj=567) BILIRUBIN TOTAL (BEAKER) 1.6 mg/dL 0.2-1.2 (test akrz=292) SODIUM (BEAKER) (test 141 meq/L 136-145 jkhr=021) POTASSIUM (BEAKER) (test 3.1 meq/L 3.5-5.1 gdqa=528) CHLORIDE (BEAKER) (test 105 meq/L 98-107 hjxc=850) CO2 (BEAKER) (test 31 meq/L 22-29 cwmd=947) BLOOD UREA NITROGEN 18 mg/dL 7-21 (BEAKER) (test cbwg=832) CREATININE (BEAKER) (test 1.50 mg/dL 0.57-1.25 zsru=027) GLUCOSE RANDOM (BEAKER) 145 mg/dL 70-105 (test qnhp=323) CALCIUM (BEAKER) (test 7.9 mg/dL 8.4-10.2 pfuo=755) AST (SGOT) (BEAKER) (test 23 U/L 5-34 iyiu=736) ALT (SGPT) (BEAKER) (test 7 U/L 6-55 sqwb=478) EGFR (BEAKER) (test 35 mL/min/1.73 sq m ESTIMATED GFR IS NOT zben=6534) ACCURATE CREATININE CLEARANCE IN PREDICTING GLOMERULAR FILTRATION RATE. ESTIMATED GFR IS NOT APPLICABLE FOR DIALYSIS PATIENTS. [id number] 08:19:00 Test Item Value Reference Range Comments PHOSPHORUS (BEAKER) (test hjoc=374) 2.2 mg/dL 2.3-4.7 [id number] 08:19:00 Test Item Value Reference Range Comments MAGNESIUM (BEAKER) (test mlxf=675) 1.5 mg/dL 1.6-2.6 HEPATIC FUNCTION [id number] 08:19:00 Test Item Value Reference Range Comments TOTAL PROTEIN (BEAKER) (test vnoz=383) 4.8 gm/dL 6.0-8.3 ALBUMIN (BEAKER) (test lktv=3212) 3.0 g/dL 3.5-5.0 BILIRUBIN TOTAL (BEAKER) (test burp=594) 1.6 mg/dL 0.2-1.2 BILIRUBIN DIRECT (BEAKER) (test oenv=762) 0.7 mg/dL 0.1-0.5 ALKALINE PHOSPHATASE (BEAKER) (test impb=788) 77 U/L 40-150 AST (SGOT) (BEAKER) (test gcmt=385) 23 U/L 5-34 ALT (SGPT) (BEAKER) (test qemf=495) 7 U/L 6-55 POCT-GLUCOSE [id number] 08:08:00 Test Item Value Reference Range Comments POC-GLUCOSE METER (BEAKER) 154 mg/dL 70-110 TESTED AT [facility] [address] (test hzol=4847) [facility] [address] B-TYPE NATRIURETIC FACTOR (BNP)2019-05-22 06:18:00 Test Item Value Reference Range Comments B-TYPE NATRIURETIC PEPTIDE (BEAKER) (test 411 pg/mL 0-100 ifkz=926) PROTHROMBIN TIME/[id number] 06:00:00 Test Item Value Reference Range Comments PROTIME (BEAKER) (test eagb=386) 14.9 seconds 11.9-14.2 INR (BEAKER) (test yjqt=981) 1.2 <=5.9 Effective 04/01/2019: PT Reference Range ChangeNew: 11.9-14.2 Previous: 11.7- 14.7RECOMMENDED COUMADIN/WARFARIN INR THERAPY RANGESSTANDARD DOSE: 2.0-3.0 Includes: PROPHYLAXIS for venous thrombosis, systemic embolization; TREATMENT for venous thrombosis and/or pulmonary embolus.HIGH RISK: Target INR is2.5-3.5 for patients wiht mechanical heart valves.CALCIUM, [id number] 05:48:00 Test Item Value Reference Range Comments CALCIUM IONIZED (BEAKER) (test qltq=670) 1.04 mmol/L 1.12-1.27 PH, BLOOD (BEAKER) (test pqns=5870) 7.40 CBC W/PLT COUNT & AUTO [id number] 05:45:00 Test Item Value Reference Range Comments WHITE BLOOD CELL COUNT (BEAKER) (test bxgn=381) 4.1 K/ L 3.5-10.5 RED BLOOD CELL COUNT (BEAKER) (test sopa=955) 2.71 M/ L 3.93-5.22 HEMOGLOBIN (BEAKER) (test gbgx=120) 7.4 GM/DL 11.2-15.7 HEMATOCRIT (BEAKER) (test wmwl=332) 23.6 % 34.1-44.9 MEAN CORPUSCULAR VOLUME (BEAKER) (test yeka=973) 87.1 fL 79.4-94.8 MEAN CORPUSCULAR HEMOGLOBIN (BEAKER) (test 27.3 pg 25.6-32.2 kupw=998) MEAN CORPUSCULAR HEMOGLOBIN CONC (BEAKER) (test 31.4 GM/DL 32.2-35.5 hpgh=206) RED CELL DISTRIBUTION WIDTH (BEAKER) (test 17.2 % 11.7-14.4 micy=812) PLATELET COUNT (BEAKER) (test wtjv=756) 126 K/CU MM 150-450 MEAN PLATELET VOLUME (BEAKER) (test ttvh=516) 9.2 fL 9.4-12.3 NUCLEATED RED BLOOD CELLS (BEAKER) (test 0 /100 WBC 0-0 uxdd=200) NEUTROPHILS RELATIVE PERCENT (BEAKER) (test 49 % tixb=808) LYMPHOCYTES RELATIVE PERCENT (BEAKER) (test 29 % qwvz=911) MONOCYTES RELATIVE PERCENT (BEAKER) (test 12 % lcgq=413) EOSINOPHILS RELATIVE PERCENT (BEAKER) (test 8 % evqh=189) BASOPHILS RELATIVE PERCENT (BEAKER) (test 1 % niio=193) NEUTROPHILS ABSOLUTE COUNT (BEAKER) (test 2.03 K/ L 1.56-6.13 zito=038) LYMPHOCYTES ABSOLUTE COUNT (BEAKER) (test 1.21 K/ L 1.18-3.74 ouce=346) MONOCYTES ABSOLUTE COUNT (BEAKER) (test 0.51 K/ L 0.24-0.36 rcha=319) EOSINOPHILS ABSOLUTE COUNT (BEAKER) (test 0.34 K/ L 0.04-0.36 kdzu=631) BASOPHILS ABSOLUTE COUNT (BEAKER) (test 0.04 K/ L 0.01-0.08 owax=225) IMMATURE GRANULOCYTES-RELATIVE PERCENT (BEAKER) 0 % 0-1 (test dyde=2642) POCT-GLUCOSE [id number] 21:52:00 Test Item Value Reference Range Comments POC-GLUCOSE METER (BEAKER) 241 mg/dL 70-110 TESTED AT [address] (test awov=5412) [place] [address] POCT-GLUCOSE [id number] 17:36:00 Test Item Value Reference Range Comments POC-GLUCOSE METER (BEAKER) 291 mg/dL 70-110 TESTED AT [address] (test tole=9954) [place] [address] BODY FLUID CELL COUNT WITH [id number] 13:52:00 Test Item Value Reference Range Comments APPEARANCE FLUID (BEAKER) (test wijh=983) Clear Clear COLOR FLUID (BEAKER) (test wwpj=201) Yellow Colorless, Straw RBC FLUID (BEAKER) (test udmi=017) 1815 /cu mm <=1 ADJUSTED WBC FLUID (BEAKER) (test bvam=4882) 79 /cu mm <=5 LINING CELLS (BEAKER) (test qghb=4780) 14 /cu mm <=1 NEUTROPHILS FLUID (BEAKER) (test pcul=7767) 0 % LYMPHS FLUID (BEAKER) (test whtg=793) 25 % MONO/MACROPHAGE FLUID (BEAKER) (test xstt=386) 74 % EOSINOPHILS FLUID (BEAKER) (test oeic=917) 1 % BASO FLUID (BEAKER) (test rtxh=783) 0 % CONTAINER BODY FLUID (BEAKER) (test vpsp=2278) EDTA Tube HEMOGLOBIN [id number] 13:47:00 Test Item Value Reference Range Comments HEMOGLOBIN A1C (BEAKER) (test tydv=812) 8.4 % 4.3-6.1 POCT-GLUCOSE [id number] 11:56:00 Test Item Value Reference Range Comments POC-GLUCOSE METER (BEAKER) 223 mg/dL 70-110 TESTED AT [address] (test innp=8038) [place] [id number] POCT-GLUCOSE [id number] 08:31:00 Test Item Value Reference Range Comments POC-GLUCOSE METER (BEAKER) 257 mg/dL 70-110 TESTED AT [address] (test qete=7218) [place] [id number] T4, [id number] 08:29:00 Test Item Value Reference Range Comments FREE T4 (BEAKER) (test akdy=922) 0.41 ng/dL 0.70-1.48 BASIC METABOLIC [id number] 08:28:00 Test Item Value Reference Range Comments SODIUM (BEAKER) (test 136 meq/L 136-145 midz=744) POTASSIUM (BEAKER) (test 3.4 meq/L 3.5-5.1 gkvh=545) CHLORIDE (BEAKER) (test 104 meq/L 98-107 wsui=302) CO2 (BEAKER) (test 27 meq/L 22-29 azfk=996) BLOOD UREA NITROGEN 18 mg/dL 7-21 (BEAKER) (test djsx=138) CREATININE (BEAKER) (test 1.57 mg/dL 0.57-1.25 mpkn=678) GLUCOSE RANDOM (BEAKER) 235 mg/dL 70-105 (test dsod=410) CALCIUM (BEAKER) (test 7.8 mg/dL 8.4-10.2 vkma=144) EGFR (BEAKER) (test 33 mL/min/1.73 sq m ESTIMATED GFR IS NOT nkah=0960) ACCURATE CREATININE CLEARANCE IN PREDICTING GLOMERULAR FILTRATION RATE. ESTIMATED GFR IS NOT APPLICABLE FOR DIALYSIS PATIENTS. Specimen slightly [id number] 08:14:00 Test Item Value Reference Range Comments PHOSPHORUS (BEAKER) (test wyym=451) 2.4 mg/dL 2.3-4.7 [id number] 08:14:00 Test Item Value Reference Range Comments MAGNESIUM (BEAKER) (test oinp=781) 1.5 mg/dL 1.6-2.6 HEPATIC FUNCTION [id number] 08:14:00 Test Item Value Reference Range Comments TOTAL PROTEIN (BEAKER) (test slac=802) 5.1 gm/dL 6.0-8.3 ALBUMIN (BEAKER) (test ifxe=7484) 2.5 g/dL 3.5-5.0 BILIRUBIN TOTAL (BEAKER) (test hmqw=837) 1.3 mg/dL 0.2-1.2 BILIRUBIN DIRECT (BEAKER) (test xzdr=785) 0.7 mg/dL 0.1-0.5 ALKALINE PHOSPHATASE (BEAKER) (test fewc=934) 107 U/L 40-150 AST (SGOT) (BEAKER) (test wqrs=613) 27 U/L 5-34 ALT (SGPT) (BEAKER) (test gmzb=179) 11 U/L 6-55 Specimen slightly ictericTSH/FREE T4 IF [id number] 07:00:00 Test Item Value Reference Range Comments THYROID STIMULATING HORMONE (BEAKER) (test 59.61 uIU/mL 0.35-4.94 chip=812) PROTHROMBIN TIME/[id number] 05:56:00 Test Item Value Reference Range Comments PROTIME (BEAKER) (test jhux=254) 14.3 seconds 11.9-14.2 INR (BEAKER) (test uctp=213) 1.2 <=5.9 Effective 04/01/2019: PT Reference Range ChangeNew: 11.9-14.2 Previous: 11.7- 14.7RECOMMENDED COUMADIN/WARFARIN INR THERAPY RANGESSTANDARD DOSE: 2.0-3.0 Includes: PROPHYLAXIS for venous thrombosis, systemic embolization; TREATMENT for venous thrombosis and/or pulmonary embolus.HIGH RISK: Target INR is2.5-3.5 for patients wiht mechanical heart valves.CALCIUM, [id number] 05:43:00 Test Item Value Reference Range Comments CALCIUM IONIZED (BEAKER) (test yeov=710) 0.97 mmol/L 1.12-1.27 PH, BLOOD (BEAKER) (test ccbw=2142) 7.45 CBC W/PLT COUNT & AUTO [id number] 05:21:00 Test Item Value Reference Range Comments WHITE BLOOD CELL COUNT (BEAKER) (test cjlz=468) 5.5 K/ L 3.5-10.5 RED BLOOD CELL COUNT (BEAKER) (test qcen=475) 3.06 M/ L 3.93-5.22 HEMOGLOBIN (BEAKER) (test jyyw=036) 8.3 GM/DL 11.2-15.7 HEMATOCRIT (BEAKER) (test hogu=226) 26.3 % 34.1-44.9 MEAN CORPUSCULAR VOLUME (BEAKER) (test apfm=320) 85.9 fL 79.4-94.8 MEAN CORPUSCULAR HEMOGLOBIN (BEAKER) (test 27.1 pg 25.6-32.2 qsij=238) MEAN CORPUSCULAR HEMOGLOBIN CONC (BEAKER) (test 31.6 GM/DL 32.2-35.5 glda=146) RED CELL DISTRIBUTION WIDTH (BEAKER) (test 17.2 % 11.7-14.4 wfqf=437) PLATELET COUNT (BEAKER) (test iufg=582) 154 K/CU MM 150-450 MEAN PLATELET VOLUME (BEAKER) (test gnsv=293) 8.9 fL 9.4-12.3 NUCLEATED RED BLOOD CELLS (BEAKER) (test 0 /100 WBC 0-0 wvai=774) NEUTROPHILS RELATIVE PERCENT (BEAKER) (test 61 % njuf=741) LYMPHOCYTES RELATIVE PERCENT (BEAKER) (test 21 % aslj=032) MONOCYTES RELATIVE PERCENT (BEAKER) (test 10 % zdcr=964) EOSINOPHILS RELATIVE PERCENT (BEAKER) (test 8 % wgex=876) BASOPHILS RELATIVE PERCENT (BEAKER) (test 1 % fvdg=097) NEUTROPHILS ABSOLUTE COUNT (BEAKER) (test 3.33 K/ L 1.56-6.13 idgr=514) LYMPHOCYTES ABSOLUTE COUNT (BEAKER) (test 1.13 K/ L 1.18-3.74 verx=549) MONOCYTES ABSOLUTE COUNT (BEAKER) (test 0.55 K/ L 0.24-0.36 fogr=683) EOSINOPHILS ABSOLUTE COUNT (BEAKER) (test 0.42 K/ L 0.04-0.36 ndfx=563) BASOPHILS ABSOLUTE COUNT (BEAKER) (test 0.06 K/ L 0.01-0.08 rrnb=325) IMMATURE GRANULOCYTES-RELATIVE PERCENT (BEAKER) 0 % 0-1 (test rcwm=7646) POCT-GLUCOSE [id number] 21:18:00 Test Item Value Reference Range Comments POC-GLUCOSE METER (BEAKER) 258 mg/dL 70-110 TESTED AT [address] (test ihoc=3750) [facility] [address] POCT-GLUCOSE [id number] 17:42:00 Test Item Value Reference Range Comments POC-GLUCOSE METER (BEAKER) 232 mg/dL 70-110 TESTED AT [address] (test grqm=1854) [facility] [address] POCT-GLUCOSE [id number] 12:51:00 Test Item Value Reference Range Comments POC-GLUCOSE METER (BEAKER) 206 mg/dL 70-110 TESTED AT [facility] [address] (test kgfo=4813) [facility] [address] POCT-GLUCOSE [id number] 07:53:00 Test Item Value Reference Range Comments POC-GLUCOSE METER (BEAKER) 219 mg/dL 70-110 TESTED AT [facility] [address] (test irqg=3059) [facility] [address] COMPREHENSIVE METABOLIC [id number] 06:52:00 Test Item Value Reference Range Comments TOTAL PROTEIN (BEAKER) 4.9 gm/dL 6.0-8.3 (test srzt=408) ALBUMIN (BEAKER) (test 2.3 g/dL 3.5-5.0 agzm=6690) ALKALINE PHOSPHATASE 119 U/L 40-150 (BEAKER) (test wxki=693) BILIRUBIN TOTAL (BEAKER) 1.1 mg/dL 0.2-1.2 (test kqik=688) SODIUM (BEAKER) (test 135 meq/L 136-145 fljn=075) POTASSIUM (BEAKER) (test 4.0 meq/L 3.5-5.1 aqwt=065) CHLORIDE (BEAKER) (test 105 meq/L 98-107 cjvs=422) CO2 (BEAKER) (test 26 meq/L 22-29 vaos=528) BLOOD UREA NITROGEN 18 mg/dL 7-21 (BEAKER) (test nwcu=691) CREATININE (BEAKER) (test 1.38 mg/dL 0.57-1.25 csxb=921) GLUCOSE RANDOM (BEAKER) 234 mg/dL 70-105 (test sdvr=681) CALCIUM (BEAKER) (test 7.8 mg/dL 8.4-10.2 gerf=665) AST (SGOT) (BEAKER) (test 29 U/L 5-34 ecxh=450) ALT (SGPT) (BEAKER) (test 13 U/L 6-55 jjti=630) EGFR (BEAKER) (test 39 mL/min/1.73 sq m ESTIMATED GFR IS NOT vsrb=9696) ACCURATE CREATININE CLEARANCE IN PREDICTING GLOMERULAR FILTRATION RATE. ESTIMATED GFR IS NOT APPLICABLE FOR DIALYSIS PATIENTS. [id number] 06:47:00 Test Item Value Reference Range Comments PHOSPHORUS (BEAKER) (test tqiw=042) 2.0 mg/dL 2.3-4.7 [id number] 06:47:00 Test Item Value Reference Range Comments MAGNESIUM (BEAKER) (test vjmi=490) 1.7 mg/dL 1.6-2.6 HEPATIC FUNCTION [id number] 06:47:00 Test Item Value Reference Range Comments TOTAL PROTEIN (BEAKER) (test banh=658) 4.9 gm/dL 6.0-8.3 ALBUMIN (BEAKER) (test cail=8372) 2.3 g/dL 3.5-5.0 BILIRUBIN TOTAL (BEAKER) (test ctwr=984) 1.1 mg/dL 0.2-1.2 BILIRUBIN DIRECT (BEAKER) (test iofy=470) 0.6 mg/dL 0.1-0.5 ALKALINE PHOSPHATASE (BEAKER) (test tueq=017) 119 U/L 40-150 AST (SGOT) (BEAKER) (test rqrw=573) 29 U/L 5-34 ALT (SGPT) (BEAKER) (test uzqc=894) 13 U/L 6-55 CBC W/PLT COUNT & AUTO [id number] 06:32:00 Test Item Value Reference Range Comments WHITE BLOOD CELL COUNT (BEAKER) (test zief=062) 5.3 K/ L 3.5-10.5 RED BLOOD CELL COUNT (BEAKER) (test rsqn=101) 3.05 M/ L 3.93-5.22 HEMOGLOBIN (BEAKER) (test lqja=765) 8.3 GM/DL 11.2-15.7 HEMATOCRIT (BEAKER) (test iqsf=447) 26.7 % 34.1-44.9 MEAN CORPUSCULAR VOLUME (BEAKER) (test gfpu=379) 87.5 fL 79.4-94.8 MEAN CORPUSCULAR HEMOGLOBIN (BEAKER) (test 27.2 pg 25.6-32.2 qwgq=161) MEAN CORPUSCULAR HEMOGLOBIN CONC (BEAKER) (test 31.1 GM/DL 32.2-35.5 ydat=927) RED CELL DISTRIBUTION WIDTH (BEAKER) (test 17.4 % 11.7-14.4 arrs=681) PLATELET COUNT (BEAKER) (test iwdj=948) 161 K/CU MM 150-450 MEAN PLATELET VOLUME (BEAKER) (test rnvl=334) 8.8 fL 9.4-12.3 NUCLEATED RED BLOOD CELLS (BEAKER) (test 0 /100 WBC 0-0 efrq=345) NEUTROPHILS RELATIVE PERCENT (BEAKER) (test 52 % fzar=472) LYMPHOCYTES RELATIVE PERCENT (BEAKER) (test 27 % xytm=483) MONOCYTES RELATIVE PERCENT (BEAKER) (test 9 % zoxh=366) EOSINOPHILS RELATIVE PERCENT (BEAKER) (test 10 % snlv=858) BASOPHILS RELATIVE PERCENT (BEAKER) (test 2 % qjpd=182) NEUTROPHILS ABSOLUTE COUNT (BEAKER) (test 2.75 K/ L 1.56-6.13 wayj=750) LYMPHOCYTES ABSOLUTE COUNT (BEAKER) (test 1.42 K/ L 1.18-3.74 thkr=497) MONOCYTES ABSOLUTE COUNT (BEAKER) (test 0.48 K/ L 0.24-0.36 zznh=184) EOSINOPHILS ABSOLUTE COUNT (BEAKER) (test 0.54 K/ L 0.04-0.36 dxxn=744) BASOPHILS ABSOLUTE COUNT (BEAKER) (test 0.08 K/ L 0.01-0.08 lgvo=433) IMMATURE GRANULOCYTES-RELATIVE PERCENT (BEAKER) 0 % 0-1 (test hakw=4620) B-TYPE NATRIURETIC FACTOR (BNP)2019-05-20 06:27:00 Test Item Value Reference Range Comments B-TYPE NATRIURETIC PEPTIDE (BEAKER) (test 274 pg/mL 0-100 wfan=451) VANCOMYCIN LEVEL, [id number] 06:16:00 Test Item Value Reference Range Comments VANCOMYCIN TROUGH (BEAKER) (test ifqh=422) 5.8 ug/mL 10.0-20.0 [id number] 06:11:00 Test Item Value Reference Range Comments D-DIMER QUANTITATIVE (BEAKER) (test hhjd=534) 3.95 MG/L FEU <0.50 Intended Use: The D-Dimer Assay can be used to aid in the diagnosis of Deep Vein Thrombosis (DVT) and Pulmonary Embolism Disease (PED).In patients with low pre-test probability, various studies concerning STA Liatest D-dimer test have reported that with a cutoff value of 0.50 MG/L FEU, the Negative Predictive Value (NPV) regarding the exclusion of thrombosis is within 95-100% range.CALCIUM, [id number] 06:04:00 Test Item Value Reference Range Comments CALCIUM IONIZED (BEAKER) (test gyae=894) 1.06 mmol/L 1.12-1.27 PH, BLOOD (BEAKER) (test vnfm=3748) 7.43 PROTHROMBIN TIME/[id number] 06:02:00 Test Item Value Reference Range Comments PROTIME (BEAKER) (test bktw=939) 13.8 seconds 11.9-14.2 INR (BEAKER) (test simb=601) 1.1 <=5.9 Effective 04/01/2019: PT Reference Range ChangeNew: 11.9-14.2 Previous: 11.7- 14.7RECOMMENDED COUMADIN/WARFARIN INR THERAPY RANGESSTANDARD DOSE: 2.0-3.0 Includes: PROPHYLAXIS for venous thrombosis, systemic embolization; TREATMENT for venous thrombosis and/or pulmonary embolus.HIGH RISK: Target INR is2.5-3.5 for patients wiht mechanical heart valves.TROPONIN [id number] 02:44:00 Test Item Value Reference Range Comments TROPONIN I (BEAKER) (test vgio=276) 0.01 ng/mL 0.00-0.03 Troponin I (TnI) levels must [...] failure, acidosis, acute neurological disease, and persistent tachyarrhythmia.PROTEIN, RANDOM [id number] 01:50:00 Test Item Value Reference Range Comments PROTEIN, URINE (BEAKER) (test ibon=0407) 20 mg/dL 0-14 CREATININE, RANDOM [id number] 01:49:00 Test Item Value Reference Range Comments CREATININE URINE (NISHANTAKER) (test cphx=096) 184.6 mg/dL Reference Range: No NormalsRAD, CHEST, 1 VIEW, NON [id number] 01:49: 00Reason for exam:->anasarcaShould this be performed at the bedside?-> YesFINAL REPORT EXAMINATION: AP PORTABLE CHEST RADIOGRAPH CLINICAL INDICATION: Shortness of breath. Anasarca IMPRESSION: Compared with February 22, 2019. Right hemidiaphragm elevation is again noted, similar to previous. Basilar lung opacities have increased in the interval. The morphology and distribution favor atelectasis. Mild superimposed pulmonary edema or an underlying pneumonia cannot be excluded. The heart is mildly prominent but magnified by the AP portable technique. Mediastinal contours are grossly unchanged. No evidence of an acute osseous abnormality or pneumothorax.Signed: Marciano Maher MDReport Verified Date/Time: 05/20/2019 01:49 :05 Reading Location: [address] Reading Room POCT-GLUCOSE [id number] 00:36:00 Test Item Value Reference Range Comments POC-GLUCOSE METER (BEAKER) 326 mg/dL 70-110 TESTED AT [facility] [address] (test rsmz=3640) [facility] [address] URINALYSIS W/ [id number] 00:02:00 Test Item Value Reference Range Comments COLOR (BEAKER) (test xjxp=770) Yellow CLARITY (BEAKER) (test lmix=843) Clear SPECIFIC GRAVITY UA (BEAKER) (test ukgn=454) 1.020 1.001-1.035 PH UA (BEAKER) (test wdcj=255) 5.5 5.0-8.0 PROTEIN UA (BEAKER) (test ulmb=071) 20 mg/dL Negative GLUCOSE UA (BEAKER) (test plzz=570) 300 mg/dL Negative KETONES UA (BEAKER) (test aspj=699) Negative Negative BILIRUBIN UA (BEAKER) (test gdhu=566) Negative Negative BLOOD UA (BEAKER) (test nvxf=379) Negative Negative NITRITE UA (BEAKER) (test qcvg=697) Negative Negative LEUKOCYTE ESTERASE UA (BEAKER) (test gwmr=633) Small Negative UROBILINOGEN UA (BEAKER) (test kxrn=538) 2.0 mg/dL 0.2-1.0 RBC UA (BEAKER) (test mgfw=533) 2 /HPF WBC UA (BEAKER) (test qnvr=436) 2 /HPF MUCUS (BEAKER) (test fjry=2871) Rare SQUAMOUS EPITHELIAL (BEAKER) (test prvz=143) 6 /HPF HYALINE CASTS (BEAKER) (test zvjg=218) 5 /LPF SOURCE(BEAKER) (test uiwz=4487) Urine, Voided T4, [id number] 22:29:00 Test Item Value Reference Range Comments FREE T4 (BEAKER) (test tvwx=845) 0.44 ng/dL 0.70-1.48 HEMOGLOBIN [id number] 22:15:00 Test Item Value Reference Range Comments HEMOGLOBIN A1C (BEAKER) (test mbng=794) 8.6 % 4.3-6.1 TSH/FREE T4 IF [id number] 21:43:00 Test Item Value Reference Range Comments THYROID STIMULATING HORMONE (BEAKER) (test 72.01 uIU/mL 0.35-4.94 vlya=946) B-TYPE NATRIURETIC FACTOR (BNP)2019-05-19 21:29:00 Test Item Value Reference Range Comments B-TYPE NATRIURETIC PEPTIDE (BEAKER) (test 222 pg/mL 0-100 ylpm=150) PROTHROMBIN [id number] 21:26:00 Test Item Value Reference Range Comments PROTIME (BEAKER) (test bbxh=654) 13.6 seconds 11.9-14.2 INR (BEAKER) (test dmjs=247) 1.1 <=5.9 Effective 04/01/2019: PT Reference Range ChangeNew: 11.9-14.2 Previous: 11.7- 14.7RECOMMENDED COUMADIN/WARFARIN INR THERAPY RANGESSTANDARD DOSE: 2.0-3.0 Includes: PROPHYLAXIS for venous thrombosis, systemic embolization; TREATMENT for venous thrombosis and/or pulmonary embolus.HIGH RISK: Target INR is2.5-3.5 for patients wiht mechanical heart valves.TROPONIN [id number] 21:26:00 Test Item Value Reference Range Comments TROPONIN I (BEAKER) (test ubcb=649) < ng/mL 0.00-0.03 Troponin I (TnI) levels [...] failure, acidosis, acute neurological disease, and persistent tachyarrhythmia.[id number] 21:18:00 Test Item Value Reference Range Comments MAGNESIUM (BEAKER) (test 1.8 mg/dL 1.6-2.6 Specimen markedly hemolyzed xndq=041) [id number] 21:18:00 Test Item Value Reference Range Comments PHOSPHORUS (BEAKER) (test 2.1 mg/dL 2.3-4.7 Specimen markedly hemolyzed tgnx=478) BASIC METABOLIC [id number] 21:18:00 Test Item Value Reference Range Comments SODIUM (BEAKER) (test 136 meq/L 136-145 guqk=523) POTASSIUM (BEAKER) (test 4.8 meq/L 3.5-5.1 Specimen markedly mrbr=394) hemolyzed CHLORIDE (BEAKER) (test 103 meq/L 98-107 sari=223) CO2 (BEAKER) (test 29 meq/L 22-29 ykjz=516) BLOOD UREA NITROGEN 17 mg/dL 7-21 (BEAKER) (test yyos=737) CREATININE (BEAKER) (test 1.33 mg/dL 0.57-1.25 Specimen markedly hsps=643) hemolyzed GLUCOSE RANDOM (BEAKER) 248 mg/dL 70-105 (test mejf=768) CALCIUM (BEAKER) (test 8.1 mg/dL 8.4-10.2 wqad=801) EGFR (BEAKER) (test 41 mL/min/1.73 sq m ESTIMATED GFR IS NOT ijtz=1504) ACCURATE CREATININE CLEARANCE IN PREDICTING GLOMERULAR FILTRATION RATE. ESTIMATED GFR IS NOT APPLICABLE FOR DIALYSIS PATIENTS. HEPATIC FUNCTION [id number] 21:18:00 Test Item Value Reference Range Comments TOTAL PROTEIN (BEAKER) (test 6.4 gm/dL 6.0-8.3 Specimen markedly hemolyzed niem=365) ALBUMIN (BEAKER) (test 2.5 g/dL 3.5-5.0 Specimen markedly hemolyzed lczo=8056) BILIRUBIN TOTAL (BEAKER) (test 1.3 mg/dL 0.2-1.2 Specimen markedly hemolyzed nulw=198) BILIRUBIN DIRECT (BEAKER) (test 0.3 mg/dL 0.1-0.5 Specimen markedly hemolyzed ndmy=240) ALKALINE PHOSPHATASE (BEAKER) 143 U/L 40-150 (test samg=829) AST (SGOT) (BEAKER) (test 61 U/L 5-34 Specimen markedly hemolyzed buwh=917) ALT (SGPT) (BEAKER) (test 15 U/L 6-55 Specimen markedly hemolyzed nfup=297) CBC W/PLT COUNT & AUTO [id number] 20:58:00 Test Item Value Reference Range Comments WHITE BLOOD CELL COUNT (BEAKER) (test oabe=964) 6.0 K/ L 3.5-10.5 RED BLOOD CELL COUNT (BEAKER) (test zsuu=131) 3.57 M/ L 3.93-5.22 HEMOGLOBIN (BEAKER) (test jqsi=137) 9.8 GM/DL 11.2-15.7 HEMATOCRIT (BEAKER) (test gnpb=581) 30.6 % 34.1-44.9 MEAN CORPUSCULAR VOLUME (BEAKER) (test vifl=964) 85.7 fL 79.4-94.8 MEAN CORPUSCULAR HEMOGLOBIN (BEAKER) (test 27.5 pg 25.6-32.2 gahb=982) MEAN CORPUSCULAR HEMOGLOBIN CONC (BEAKER) (test 32.0 GM/DL 32.2-35.5 gcxf=072) RED CELL DISTRIBUTION WIDTH (BEAKER) (test 17.4 % 11.7-14.4 iwcy=520) PLATELET COUNT (BEAKER) (test cjkt=266) 199 K/CU MM 150-450 MEAN PLATELET VOLUME (BEAKER) (test sqsi=975) 9.1 fL 9.4-12.3 NUCLEATED RED BLOOD CELLS (BEAKER) (test 0 /100 WBC 0-0 kwts=015) NEUTROPHILS RELATIVE PERCENT (BEAKER) (test 53 % rlow=417) LYMPHOCYTES RELATIVE PERCENT (BEAKER) (test 27 % qncc=747) MONOCYTES RELATIVE PERCENT (BEAKER) (test 8 % nplk=458) EOSINOPHILS RELATIVE PERCENT (BEAKER) (test 10 % ziml=179) BASOPHILS RELATIVE PERCENT (BEAKER) (test 1 % ufxj=574) NEUTROPHILS ABSOLUTE COUNT (BEAKER) (test 3.21 K/ L 1.56-6.13 vgzu=371) LYMPHOCYTES ABSOLUTE COUNT (BEAKER) (test 1.62 K/ L 1.18-3.74 vhqw=053) MONOCYTES ABSOLUTE COUNT (BEAKER) (test 0.50 K/ L 0.24-0.36 ptfu=993) EOSINOPHILS ABSOLUTE COUNT (BEAKER) (test 0.62 K/ L 0.04-0.36 khod=847) BASOPHILS ABSOLUTE COUNT (BEAKER) (test 0.08 K/ L 0.01-0.08 fvxo=036) IMMATURE GRANULOCYTES-RELATIVE PERCENT (BEAKER) 0 % 0-1 (test cuyx=3225) BODY FLUID CULTURE + GRAM [id number] 13:44:00 Test Item Value Reference Range Comments CULTURE (BEAKER) (test rlhh=4189) No growth GRAM STAIN RESULT (BEAKER) (test <1+ White blood cells seen ckha=7689) GRAM STAIN RESULT (BEAKER) (test No organisms seen mcir=55910) BODY FLUID CULTURE + GRAM [id number] 14:06:00 Test Item Value Reference Range Comments CULTURE (BEAKER) (test tjdh=2855) No growth GRAM STAIN RESULT (BEAKER) (test No White blood cells seen zryn=9591) GRAM STAIN RESULT (BEAKER) (test No organisms seen vidw=16740) BASIC METABOLIC [id number] 08:41:00 Test Item Value Reference Range Comments SODIUM (BEAKER) (test 132 meq/L 136-145 kams=895) POTASSIUM (BEAKER) (test 4.4 meq/L 3.5-5.1 ufvv=441) CHLORIDE (BEAKER) (test 100 meq/L 98-107 jria=323) CO2 (BEAKER) (test 25 meq/L 22-29 ekyv=898) BLOOD UREA NITROGEN 53 mg/dL 7-21 (BEAKER) (test ddjw=597) CREATININE (BEAKER) (test 1.80 mg/dL 0.57-1.25 ouqr=224) GLUCOSE RANDOM (BEAKER) 211 mg/dL 70-105 (test znli=014) CALCIUM (BEAKER) (test 9.0 mg/dL 8.4-10.2 waws=284) EGFR (BEAKER) (test 29 mL/min/1.73 sq m ESTIMATED GFR IS NOT wsnk=0504) ACCURATE CREATININE CLEARANCE IN PREDICTING GLOMERULAR FILTRATION RATE. ESTIMATED GFR IS NOT APPLICABLE FOR DIALYSIS PATIENTS. POCT-GLUCOSE [id number] 08:16:00 Test Item Value Reference Range Comments POC-GLUCOSE METER (BEAKER) 213 mg/dL 70-110 TESTED AT [facility] [address] [place] [address] (test tvvt=7208) [facility] [address] HEPATIC FUNCTION [id number] 06:43:00 Test Item Value Reference Range Comments TOTAL PROTEIN (BEAKER) (test fwih=180) 5.7 gm/dL 6.0-8.3 ALBUMIN (BEAKER) (test cuue=3972) 4.2 g/dL 3.5-5.0 BILIRUBIN TOTAL (BEAKER) (test dvrc=945) 1.6 mg/dL 0.2-1.2 BILIRUBIN DIRECT (BEAKER) (test puqp=851) 0.8 mg/dL 0.1-0.5 ALKALINE PHOSPHATASE (BEAKER) (test gmjn=967) 95 U/L 40-150 AST (SGOT) (BEAKER) (test hbkb=766) 71 U/L 5-34 ALT (SGPT) (BEAKER) (test fkhn=782) 68 U/L 6-55 POCT-GLUCOSE [id number] 22:00:00 Test Item Value Reference Range Comments POC-GLUCOSE METER (BEAKER) 341 mg/dL 70-110 Notified ALEXI ENNIS/TESTED AT [facility] (test rqrq=6307) [address] [place] [address] BODY FLUID CELL COUNT WITH [id number] 20:00:00 Test Item Value Reference Range Comments APPEARANCE FLUID (BEAKER) (test hfrk=332) Hazy Clear COLOR FLUID (BEAKER) (test iouo=952) Straw Colorless, Straw RBC FLUID (BEAKER) (test bnzs=720) 4000 /cu mm <=1 ADJUSTED WBC FLUID (BEAKER) (test agrg=4769) 140 /cu mm <=5 LINING CELLS (BEAKER) (test jrpw=6506) 1 /cu mm <=1 NEUTROPHILS FLUID (BEAKER) (test dxih=6102) 1 % LYMPHS FLUID (BEAKER) (test nqoo=683) 30 % MONO/MACROPHAGE FLUID (BEAKER) (test lskx=679) 69 % EOSINOPHILS FLUID (BEAKER) (test urul=826) 0 % BASO FLUID (BEAKER) (test hxfm=764) 0 % CONTAINER BODY FLUID (BEAKER) (test xttk=0972) EDTA Tube U/S, [id number] 16:42:00Reason for exam:->ascites limited 6 litersFINAL REPORT PROCEDURE: Ultrasound-guided paracentesis. INDICATION: 59-year-old woman with ascites. DESCRIPTION: After obtaining informed written consent, ultrasound scan of the abdomen identified ascites in the right lower quadrant. The overlying skin was prepped and draped in the usual, sterile fashion and local 2% lidocaine anesthesia was administered. A 5 Austrian catheter was advanced into the peritoneal cavity and 6000 cc of serous fluid was removed. The catheter was removed without immediate complication. Samples were sent for analysis. IMPRESSION:Uncomplicated ultrasound-guided paracentesis with 6000 cc fluid removed. Signed: Antwon Bose MDReport Verified Date/Time: 02/24/2019 16:42:07 Reading Location: [address] Ultrasound Reading Room POCT-GLUCOSE [id number] 13:07:00 Test Item Value Reference Range Comments POC-GLUCOSE METER (BEAKER) 290 mg/dL 70-110 TESTED AT [address] (test izqz=3062) [facility] [address] PROTHROMBIN [id number] 12:01:00 Test Item Value Reference Range Comments PROTIME (BEAKER) (test hlgw=444) 14.3 seconds 11.7-14.7 INR (BEAKER) (test buru=813) 1.1 <=5.9 RECOMMENDED COUMADIN/WARFARIN INR THERAPY RANGESSTANDARD DOSE: 2.0 - 3.0 Includes: PROPHYLAXIS forvenous thrombosis, systemic embolization; TREATMENT for venous thrombosis and/or pulmonary embolus.HIGH RISK: Target INR is 2.5-3.5 for patients with mechanical heart valves.[id number] 12:01:00 Test Item Value Reference Range Comments PARTIAL THROMBOPLASTIN TIME (BEAKER) (test 32.5 seconds 22.5-36.0 txwi=316) POCT-GLUCOSE [id number] 08:39:00 Test Item Value Reference Range Comments POC-GLUCOSE METER (BEAKER) 279 mg/dL 70-110 TESTED AT [address] (test xgqc=9246) [facility] [address] CALCIUM, [id number] 07:04:00 Test Item Value Reference Range Comments CALCIUM IONIZED (BEAKER) (test lpwd=743) 1.08 mmol/L 1.12-1.27 PH, BLOOD (BEAKER) (test djmx=9542) 7.38 COMPREHENSIVE METABOLIC [id number] 05:59:00 Test Item Value Reference Range Comments TOTAL PROTEIN (BEAKER) 5.5 gm/dL 6.0-8.3 (test dywc=121) ALBUMIN (BEAKER) (test 3.8 g/dL 3.5-5.0 cwak=3972) ALKALINE PHOSPHATASE 125 U/L 40-150 (BEAKER) (test pvqe=446) BILIRUBIN TOTAL (BEAKER) 0.9 mg/dL 0.2-1.2 (test bxka=253) SODIUM (BEAKER) (test 130 meq/L 136-145 hiae=873) POTASSIUM (BEAKER) (test 4.0 meq/L 3.5-5.1 zsft=342) CHLORIDE (BEAKER) (test 99 meq/L 98-107 fiji=734) CO2 (BEAKER) (test 23 meq/L 22-29 ilpt=338) BLOOD UREA NITROGEN 51 mg/dL 7-21 (BEAKER) (test ffki=140) CREATININE (BEAKER) (test 2.07 mg/dL 0.57-1.25 lwsi=635) GLUCOSE RANDOM (BEAKER) 320 mg/dL 70-105 (test ffjy=171) CALCIUM (BEAKER) (test 8.7 mg/dL 8.4-10.2 nqfl=052) AST (SGOT) (BEAKER) (test 111 U/L 5-34 hkrz=008) ALT (SGPT) (BEAKER) (test 98 U/L 6-55 amlb=637) EGFR (BEAKER) (test 24 mL/min/1.73 sq m ESTIMATED GFR IS NOT revw=0340) ACCURATE CREATININE CLEARANCE IN PREDICTING GLOMERULAR FILTRATION RATE. ESTIMATED GFR IS NOT APPLICABLE FOR DIALYSIS PATIENTS. [id number] 05:58:00 Test Item Value Reference Range Comments PHOSPHORUS (BEAKER) (test irbx=224) 2.1 mg/dL 2.3-4.7 [id number] 05:58:00 Test Item Value Reference Range Comments MAGNESIUM (BEAKER) (test lafh=524) 2.3 mg/dL 1.6-2.6 HEPATIC FUNCTION [id number] 05:58:00 Test Item Value Reference Range Comments TOTAL PROTEIN (BEAKER) (test fqss=451) 5.5 gm/dL 6.0-8.3 ALBUMIN (BEAKER) (test bsvz=8908) 3.8 g/dL 3.5-5.0 BILIRUBIN TOTAL (BEAKER) (test tjqe=477) 0.9 mg/dL 0.2-1.2 BILIRUBIN DIRECT (BEAKER) (test hmjo=953) 0.4 mg/dL 0.1-0.5 ALKALINE PHOSPHATASE (BEAKER) (test lund=572) 125 U/L 40-150 AST (SGOT) (BEAKER) (test pdio=569) 111 U/L 5-34 ALT (SGPT) (BEAKER) (test thqs=508) 98 U/L 6-55 CBC W/PLT COUNT & AUTO [id number] 05:29:00 Test Item Value Reference Range Comments WHITE BLOOD CELL COUNT (BEAKER) (test lyzp=233) 5.9 K/ L 3.5-10.5 RED BLOOD CELL COUNT (BEAKER) (test hlwz=807) 3.00 M/ L 3.93-5.22 HEMOGLOBIN (BEAKER) (test djpb=665) 8.5 GM/DL 11.2-15.7 HEMATOCRIT (BEAKER) (test vfhk=323) 25.3 % 34.1-44.9 MEAN CORPUSCULAR VOLUME (BEAKER) (test pyil=978) 84.3 fL 79.4-94.8 MEAN CORPUSCULAR HEMOGLOBIN (BEAKER) (test 28.3 pg 25.6-32.2 xdzp=892) MEAN CORPUSCULAR HEMOGLOBIN CONC (BEAKER) (test 33.6 GM/DL 32.2-35.5 zubg=150) RED CELL DISTRIBUTION WIDTH (BEAKER) (test 14.8 % 11.7-14.4 kvkv=578) PLATELET COUNT (BEAKER) (test vepn=542) 146 K/CU MM 150-450 MEAN PLATELET VOLUME (BEAKER) (test gkuc=124) 10.1 fL 9.4-12.3 NUCLEATED RED BLOOD CELLS (BEAKER) (test 0 /100 WBC 0-0 qdkr=087) NEUTROPHILS RELATIVE PERCENT (BEAKER) (test 67 % soxt=818) LYMPHOCYTES RELATIVE PERCENT (BEAKER) (test 16 % wetp=335) MONOCYTES RELATIVE PERCENT (BEAKER) (test 10 % ogkl=455) EOSINOPHILS RELATIVE PERCENT (BEAKER) (test 6 % ayxq=805) BASOPHILS RELATIVE PERCENT (BEAKER) (test 1 % ztud=601) NEUTROPHILS ABSOLUTE COUNT (BEAKER) (test 3.94 K/ L 1.56-6.13 zgge=530) LYMPHOCYTES ABSOLUTE COUNT (BEAKER) (test 0.96 K/ L 1.18-3.74 pdgy=507) MONOCYTES ABSOLUTE COUNT (BEAKER) (test 0.57 K/ L 0.24-0.36 vzxv=480) EOSINOPHILS ABSOLUTE COUNT (BEAKER) (test 0.37 K/ L 0.04-0.36 vkfv=251) BASOPHILS ABSOLUTE COUNT (BEAKER) (test 0.03 K/ L 0.01-0.08 skpf=784) IMMATURE GRANULOCYTES-RELATIVE PERCENT (BEAKER) 0 % 0-1 (test sasd=3301) POCT-GLUCOSE [id number] 21:01:00 Test Item Value Reference Range Comments POC-GLUCOSE METER (BEAKER) 371 mg/dL 70-110 Notified ALEXI ENNIS/TESTED AT [facility] (test mmrw=0265) [address] [place] [address] POCT-GLUCOSE [id number] 17:30:00 Test Item Value Reference Range Comments POC-GLUCOSE METER (BEAKER) 389 mg/dL 70-110 TESTED AT [address] (test gcsu=0831) [facility] [address] POCT-GLUCOSE [id number] 08:50:00 Test Item Value Reference Range Comments POC-GLUCOSE METER (BEAKER) 303 mg/dL 70-110 TESTED AT [address] (test oykm=0123) [facility] [address] POCT-GLUCOSE [id number] 08:27:00 Test Item Value Reference Range Comments POC-GLUCOSE METER (BEAKER) 342 mg/dL 70-110 Will Repeat Test/TESTED AT (test sqxu=8531) [address] [address] CALCIUM, [id number] 07:20:00 Test Item Value Reference Range Comments CALCIUM IONIZED (BEAKER) (test ahip=206) 0.98 mmol/L 1.12-1.27 PH, BLOOD (BEAKER) (test tkrq=3320) 7.41 COMPREHENSIVE METABOLIC [id number] 07:05:00 Test Item Value Reference Range Comments TOTAL PROTEIN (BEAKER) 5.0 gm/dL 6.0-8.3 (test feci=856) ALBUMIN (BEAKER) (test 3.3 g/dL 3.5-5.0 ajne=2818) ALKALINE PHOSPHATASE 126 U/L 40-150 (BEAKER) (test xese=229) BILIRUBIN TOTAL (BEAKER) 1.2 mg/dL 0.2-1.2 (test igcd=936) SODIUM (BEAKER) (test 128 meq/L 136-145 wpiq=499) POTASSIUM (BEAKER) (test 4.1 meq/L 3.5-5.1 dzhe=984) CHLORIDE (BEAKER) (test 98 meq/L 98-107 jdai=512) CO2 (BEAKER) (test 20 meq/L 22-29 lgbs=958) BLOOD UREA NITROGEN 43 mg/dL 7-21 (BEAKER) (test ozuv=891) CREATININE (BEAKER) (test 2.39 mg/dL 0.57-1.25 lvij=131) GLUCOSE RANDOM (BEAKER) 305 mg/dL 70-105 (test veox=245) CALCIUM (BEAKER) (test 8.1 mg/dL 8.4-10.2 gsct=402) AST (SGOT) (BEAKER) (test 173 U/L 5-34 xcic=626) ALT (SGPT) (BEAKER) (test 143 U/L 6-55 eagh=802) EGFR (BEAKER) (test 21 mL/min/1.73 sq m ESTIMATED GFR IS NOT bbes=5613) ACCURATE CREATININE CLEARANCE IN PREDICTING GLOMERULAR FILTRATION RATE. ESTIMATED GFR IS NOT APPLICABLE FOR DIALYSIS PATIENTS. [id number] 06:56:00 Test Item Value Reference Range Comments PHOSPHORUS (BEAKER) (test zvpp=727) 2.5 mg/dL 2.3-4.7 [id number] 06:56:00 Test Item Value Reference Range Comments MAGNESIUM (BEAKER) (test hwjg=437) 1.9 mg/dL 1.6-2.6 HEPATIC FUNCTION [id number] 06:56:00 Test Item Value Reference Range Comments TOTAL PROTEIN (BEAKER) (test liqe=078) 5.0 gm/dL 6.0-8.3 ALBUMIN (BEAKER) (test btps=8997) 3.3 g/dL 3.5-5.0 BILIRUBIN TOTAL (BEAKER) (test uhvl=268) 1.2 mg/dL 0.2-1.2 BILIRUBIN DIRECT (BEAKER) (test qunb=205) 0.6 mg/dL 0.1-0.5 ALKALINE PHOSPHATASE (BEAKER) (test pofa=644) 126 U/L 40-150 AST (SGOT) (BEAKER) (test qvcm=988) 173 U/L 5-34 ALT (SGPT) (BEAKER) (test fkhw=320) 143 U/L 6-55 CBC W/PLT COUNT & AUTO [id number] 06:17:00 Test Item Value Reference Range Comments WHITE BLOOD CELL COUNT (BEAKER) (test bwlt=303) 5.7 K/ L 3.5-10.5 RED BLOOD CELL COUNT (BEAKER) (test rrqt=398) 3.40 M/ L 3.93-5.22 HEMOGLOBIN (BEAKER) (test ksdp=864) 9.2 GM/DL 11.2-15.7 HEMATOCRIT (BEAKER) (test vkhv=276) 29.1 % 34.1-44.9 MEAN CORPUSCULAR VOLUME (BEAKER) (test mjro=562) 85.6 fL 79.4-94.8 MEAN CORPUSCULAR HEMOGLOBIN (BEAKER) (test 27.1 pg 25.6-32.2 bfwk=540) MEAN CORPUSCULAR HEMOGLOBIN CONC (BEAKER) (test 31.6 GM/DL 32.2-35.5 tvhr=917) RED CELL DISTRIBUTION WIDTH (BEAKER) (test 14.7 % 11.7-14.4 ldho=006) PLATELET COUNT (BEAKER) (test oofi=630) 128 K/CU MM 150-450 MEAN PLATELET VOLUME (BEAKER) (test itez=680) 10.3 fL 9.4-12.3 NUCLEATED RED BLOOD CELLS (BEAKER) (test 0 /100 WBC 0-0 kvuz=352) NEUTROPHILS RELATIVE PERCENT (BEAKER) (test 69 % ejzp=610) LYMPHOCYTES RELATIVE PERCENT (BEAKER) (test 15 % jcmv=766) MONOCYTES RELATIVE PERCENT (BEAKER) (test 9 % kidc=530) EOSINOPHILS RELATIVE PERCENT (BEAKER) (test 6 % flrq=331) BASOPHILS RELATIVE PERCENT (BEAKER) (test 1 % yadu=454) NEUTROPHILS ABSOLUTE COUNT (BEAKER) (test 3.91 K/ L 1.56-6.13 ojhk=751) LYMPHOCYTES ABSOLUTE COUNT (BEAKER) (test 0.86 K/ L 1.18-3.74 aokt=663) MONOCYTES ABSOLUTE COUNT (BEAKER) (test 0.51 K/ L 0.24-0.36 hxmn=341) EOSINOPHILS ABSOLUTE COUNT (BEAKER) (test 0.35 K/ L 0.04-0.36 kayz=132) BASOPHILS ABSOLUTE COUNT (BEAKER) (test 0.03 K/ L 0.01-0.08 bkha=955) IMMATURE GRANULOCYTES-RELATIVE PERCENT (BEAKER) 0 % 0-1 (test qtpo=7228) BODY FLUID CELL COUNT WITH [id number] 17:06:00 Test Item Value Reference Range Comments APPEARANCE FLUID (BEAKER) (test qkro=354) Hazy Clear COLOR FLUID (BEAKER) (test whmy=509) Yellow Colorless, Straw RBC FLUID (BEAKER) (test eacp=269) 6000 /cu mm <=1 ADJUSTED WBC FLUID (BEAKER) (test iplm=8736) 125 /cu mm <=5 LINING CELLS (BEAKER) (test aqqj=7134) 2 /cu mm <=1 NEUTROPHILS FLUID (BEAKER) (test ympn=9439) 6 % LYMPHS FLUID (BEAKER) (test dqdp=693) 21 % MONO/MACROPHAGE FLUID (BEAKER) (test befg=994) 73 % EOSINOPHILS FLUID (BEAKER) (test nydq=516) 0 % BASO FLUID (BEAKER) (test soyf=947) 0 % CONTAINER BODY FLUID (BEAKER) (test czfd=5729) EDTA Tube POCT-GLUCOSE [id number] 16:40:00 Test Item Value Reference Range Comments POC-GLUCOSE METER (BEAKER) 396 mg/dL 70-110 TESTED AT [facility] [address] (test byua=0727) [facility] [address] U/S, [id number] 16:12:00limit to 6 LReason for exam:->ascites, limit to 6 LFINAL REPORT Paracentesis dated 02/22/2019 Procedure: Ultrasound-guided paracentesis. Preprocedure diagnosis: Ascites Postprocedure diagnosis: Ascites Conscious sedation: None. Radiologist: Giovanni Haas M.D. Soccer Player: None Anesthesia: 1% Xylocaine mixed with sodium bicarbonate local anesthesia. Technique: After obtaining informed consent, ultrasound-guided paracentesis was performed under usual sterile technique. Using a 5 filipino drainage catheter, puncture was made in the right lower quadrant abdomen. Approximately 6000 cc of serous fluid was removed. Patient tolerated the procedure well without complication. Complication: None Graft/ Implant: None Estimated Blood Loss: None Impression: Ultrasound-guided paracentesis. Signed: Giovanni Haas Verified Date/Time: 02/22/2019 16:12 :23 Reading Location: [place] [address]Y CT Body Reading Room RAD, CHEST, 1 VIEW, NON [id number] 12:22:00Reason for exam:->coughShould this be performed at [...] Verified Date/ Time: 02/22/2019 12:22:24 Reading Location: [facility] C013W Consult Reading Room POCT-GLUCOSE [id number] 07:55:00 Test Item Value Reference Range Comments POC-GLUCOSE METER (BEAKER) 317 mg/dL 70-110 TESTED AT [facility] [address] [facility] (test iwhd=2312) [facility] [address] POCT-GLUCOSE [id number] 07:24:00 Test Item Value Reference Range Comments POC-GLUCOSE METER (BEAKER) 386 mg/dL 70-110 Notified ALEXI ENNIS/TESTED AT [facility] (test gujq=9391) [address] [facility] [address] POCT-GLUCOSE [id number] 07:24:00 Test Item Value Reference Range Comments POC-GLUCOSE METER (BEAKER) 295 mg/dL 70-110 TESTED AT [facility] [address] [facility] (test qfuq=7806) [facility] [address] POCT-GLUCOSE [id number] 07:24:00 Test Item Value Reference Range Comments POC-GLUCOSE METER (BEAKER) 256 mg/dL 70-110 TESTED AT [address] (test wxuf=1712) [facility] [address] BASIC METABOLIC [id number] 06:50:00 Test Item Value Reference Range Comments SODIUM (BEAKER) (test 128 meq/L 136-145 uhtc=425) POTASSIUM (BEAKER) (test 4.0 meq/L 3.5-5.1 zhcs=738) CHLORIDE (BEAKER) (test 100 meq/L 98-107 hrse=062) CO2 (BEAKER) (test 21 meq/L 22-29 oxeu=728) BLOOD UREA NITROGEN 40 mg/dL 7-21 (BEAKER) (test umme=739) CREATININE (BEAKER) (test 2.62 mg/dL 0.57-1.25 uomj=290) GLUCOSE RANDOM (BEAKER) 351 mg/dL 70-105 (test ekiw=059) CALCIUM (BEAKER) (test 8.0 mg/dL 8.4-10.2 txln=941) EGFR (BEAKER) (test 19 mL/min/1.73 sq m ESTIMATED GFR IS NOT ibbl=8056) ACCURATE CREATININE CLEARANCE IN PREDICTING GLOMERULAR FILTRATION RATE. ESTIMATED GFR IS NOT APPLICABLE FOR DIALYSIS PATIENTS. [id number] 06:46:00 Test Item Value Reference Range Comments MAGNESIUM (BEAKER) (test pllm=108) 1.9 mg/dL 1.6-2.6 BLOOD [id number] 20:01:00 Test Item Value Reference Range Comments CULTURE (BEAKER) (test qgls=3867) No growth in 5 days BLOOD [id number] 20:01:00 Test Item Value Reference Range Comments CULTURE (BEAKER) (test purw=8028) No growth in 5 days POCT-GLUCOSE [id number] 08:39:00 Test Item Value Reference Range Comments POC-GLUCOSE METER (BEAKER) 300 mg/dL 70-110 TESTED AT [facility] [address] (test fyvb=5277) [facility] [address] POCT-GLUCOSE [id number] 08:39:00 Test Item Value Reference Range Comments POC-GLUCOSE METER (BEAKER) 330 mg/dL 70-110 Notified ALEXI ENNIS/TESTED AT [facility] (test vinn=8857) [address] [facility] [address] COMPREHENSIVE METABOLIC [id number] 08:25:00 Test Item Value Reference Range Comments TOTAL PROTEIN (BEAKER) 4.9 gm/dL 6.0-8.3 (test zaej=260) ALBUMIN (BEAKER) (test 3.3 g/dL 3.5-5.0 gpxd=7498) ALKALINE PHOSPHATASE 129 U/L 40-150 (BEAKER) (test dtpf=820) BILIRUBIN TOTAL (BEAKER) 1.2 mg/dL 0.2-1.2 (test qvmu=135) SODIUM (BEAKER) (test 130 meq/L 136-145 lbhc=807) POTASSIUM (BEAKER) (test 4.5 meq/L 3.5-5.1 sdty=602) CHLORIDE (BEAKER) (test 102 meq/L 98-107 fhes=681) CO2 (BEAKER) (test 20 meq/L 22-29 vzcw=110) BLOOD UREA NITROGEN 32 mg/dL 7-21 (BEAKER) (test mrec=955) CREATININE (BEAKER) (test 2.28 mg/dL 0.57-1.25 utrm=801) GLUCOSE RANDOM (BEAKER) 341 mg/dL 70-105 (test isld=815) CALCIUM (BEAKER) (test 8.1 mg/dL 8.4-10.2 xrbv=253) AST (SGOT) (BEAKER) (test 851 U/L 5-34 hgtz=137) ALT (SGPT) (BEAKER) (test 345 U/L 6-55 qhvo=157) EGFR (BEAKER) (test 22 mL/min/1.73 sq m ESTIMATED GFR IS NOT srxq=0065) ACCURATE CREATININE CLEARANCE IN PREDICTING GLOMERULAR FILTRATION RATE. ESTIMATED GFR IS NOT APPLICABLE FOR DIALYSIS PATIENTS. [id number] 08:19:00 Test Item Value Reference Range Comments PHOSPHORUS (BEAKER) (test ietq=366) 2.3 mg/dL 2.3-4.7 [id number] 08:19:00 Test Item Value Reference Range Comments MAGNESIUM (BEAKER) (test vtvh=386) 1.9 mg/dL 1.6-2.6 CALCIUM, [id number] 07:20:00 Test Item Value Reference Range Comments CALCIUM IONIZED (BEAKER) (test sdyu=682) 0.98 mmol/L 1.12-1.27 PH, BLOOD (BEAKER) (test iprs=9904) 7.42 CBC W/PLT COUNT & AUTO [id number] 06:36:00 Test Item Value Reference Range Comments WHITE BLOOD CELL COUNT (BEAKER) (test mbhu=401) 8.1 K/ L 3.5-10.5 RED BLOOD CELL COUNT (BEAKER) (test dqud=602) 3.43 M/ L 3.93-5.22 HEMOGLOBIN (BEAKER) (test wrms=814) 9.2 GM/DL 11.2-15.7 HEMATOCRIT (BEAKER) (test hnlw=884) 29.3 % 34.1-44.9 MEAN CORPUSCULAR VOLUME (BEAKER) (test fofc=504) 85.4 fL 79.4-94.8 MEAN CORPUSCULAR HEMOGLOBIN (BEAKER) (test 26.8 pg 25.6-32.2 anlp=248) MEAN CORPUSCULAR HEMOGLOBIN CONC (BEAKER) (test 31.4 GM/DL 32.2-35.5 glom=833) RED CELL DISTRIBUTION WIDTH (BEAKER) (test 14.6 % 11.7-14.4 ihyl=552) PLATELET COUNT (BEAKER) (test ndxi=708) 132 K/CU MM 150-450 MEAN PLATELET VOLUME (BEAKER) (test xxju=935) 9.3 fL 9.4-12.3 NUCLEATED RED BLOOD CELLS (BEAKER) (test 0 /100 WBC 0-0 xmgy=970) NEUTROPHILS RELATIVE PERCENT (BEAKER) (test 77 % pkvs=697) LYMPHOCYTES RELATIVE PERCENT (BEAKER) (test 13 % elmx=643) MONOCYTES RELATIVE PERCENT (BEAKER) (test 8 % dnas=474) EOSINOPHILS RELATIVE PERCENT (BEAKER) (test 2 % izid=627) BASOPHILS RELATIVE PERCENT (BEAKER) (test 1 % qeav=058) NEUTROPHILS ABSOLUTE COUNT (BEAKER) (test 6.17 K/ L 1.56-6.13 rtsk=125) LYMPHOCYTES ABSOLUTE COUNT (BEAKER) (test 1.02 K/ L 1.18-3.74 uccj=154) MONOCYTES ABSOLUTE COUNT (BEAKER) (test 0.61 K/ L 0.24-0.36 kgcc=826) EOSINOPHILS ABSOLUTE COUNT (BEAKER) (test 0.18 K/ L 0.04-0.36 lfci=387) BASOPHILS ABSOLUTE COUNT (BEAKER) (test 0.05 K/ L 0.01-0.08 nowt=586) IMMATURE GRANULOCYTES-RELATIVE PERCENT (BEAKER) 1 % 0-1 (test kxgu=5649) BASIC METABOLIC [id number] 19:24:00 Test Item Value Reference Range Comments SODIUM (BEAKER) (test 132 meq/L 136-145 dxho=252) POTASSIUM (BEAKER) (test 4.8 meq/L 3.5-5.1 xqem=768) CHLORIDE (BEAKER) (test 103 meq/L 98-107 ubjk=979) CO2 (BEAKER) (test 20 meq/L 22-29 jtby=222) BLOOD UREA NITROGEN 30 mg/dL 7-21 (BEAKER) (test ibtk=875) CREATININE (BEAKER) (test 1.85 mg/dL 0.57-1.25 pahm=089) GLUCOSE RANDOM (BEAKER) 297 mg/dL 70-105 (test uyxr=123) CALCIUM (BEAKER) (test 8.7 mg/dL 8.4-10.2 ogsu=019) EGFR (BEAKER) (test 28 mL/min/1.73 sq m ESTIMATED GFR IS NOT isdq=0413) ACCURATE CREATININE CLEARANCE IN PREDICTING GLOMERULAR FILTRATION RATE. ESTIMATED GFR IS NOT APPLICABLE FOR DIALYSIS PATIENTS. Please draw [address] Quiroz at [phone] with results.Call [id number] 19:22:00 Test Item Value Reference Range Comments SODIUM (BEAKER) (test pbpn=892) 132 meq/L 136-145 POTASSIUM (BEAKER) (test zgvv=235) 4.8 meq/L 3.5-5.1 CHLORIDE (BEAKER) (test krrw=921) 103 meq/L 98-107 CO2 (BEAKER) (test cyhk=960) 20 meq/L 22-29 Please draw 4 hours after [address]PS. Page Dr. Quiroz at [phone] with results.Call [id number] [id number] 18:11:00 Test Item Value Reference Range Comments POC-GLUCOSE METER (BEAKER) 314 mg/dL 70-110 TESTED AT [address] (test pdhp=2030) [facility] [address] POCT-GLUCOSE [id number] 17:29:00 Test Item Value Reference Range Comments POC-GLUCOSE METER (BEAKER) 255 mg/dL 70-110 TESTED AT [address] (test zbwh=6966) [facility] [address] POCT-GLUCOSE [id number] 13:02:00 Test Item Value Reference Range Comments POC-GLUCOSE METER (BEAKER) 289 mg/dL 70-110 TESTED AT [address] (test digr=3708) [place] [id number] BODY FLUID CULTURE + GRAM [id number] 12:08:00 Test Item Value Reference Range Comments CULTURE (BEAKER) (test rerq=8696) No growth GRAM STAIN RESULT (BEAKER) (test <1+ WBCs uftv=8930) GRAM STAIN RESULT (BEAKER) (test No organisms seen drcy=07015) SEAMUS [id number] 09:29:00Reason for exam:->cirrhosis/ portal hypertension , refractory [...] and a bleeding placement of a 10 Austrian sheath from theright hepatic vein to the [...] 1 L of yellow fluid. The 5 Austrian needle/catheter was inserted with real-time ultrasound guidance into the peritoneal cavity in the right lateral abdomen following sterile preparation. Following this, the sheath catheter was removed. CONCLUSION: Successful TIPS and paracentesis. Signed: Yulia Kaba MDReport Verified Date/Time: 02/20/2019 09:29:18 Reading Location : [place] [address] Angio Body Reading Room CALCIUM, [id number] 06:43:00 Test Item Value Reference Range Comments CALCIUM IONIZED (BEAKER) (test gumf=163) 1.02 mmol/L 1.12-1.27 PH, BLOOD (BEAKER) (test obub=4985) 7.40 [id number] 06:12:00 Test Item Value Reference Range Comments PHOSPHORUS (BEAKER) (test gcik=890) 2.5 mg/dL 2.3-4.7 [id number] 06:12:00 Test Item Value Reference Range Comments MAGNESIUM (BEAKER) (test tpud=911) 1.6 mg/dL 1.6-2.6 HEPATIC FUNCTION [id number] 06:12:00 Test Item Value Reference Range Comments TOTAL PROTEIN (BEAKER) (test xzon=053) 5.3 gm/dL 6.0-8.3 ALBUMIN (BEAKER) (test tuyk=4283) 3.6 g/dL 3.5-5.0 BILIRUBIN TOTAL (BEAKER) (test ckub=982) 1.2 mg/dL 0.2-1.2 BILIRUBIN DIRECT (BEAKER) (test cjzo=932) 0.6 mg/dL 0.1-0.5 ALKALINE PHOSPHATASE (BEAKER) (test lcoi=151) 80 U/L 40-150 AST (SGOT) (BEAKER) (test fcrm=915) 99 U/L 5-34 ALT (SGPT) (BEAKER) (test hrcx=038) 52 U/L 6-55 COMPREHENSIVE METABOLIC [id number] 06:12:00 Test Item Value Reference Range Comments TOTAL PROTEIN (BEAKER) 5.3 gm/dL 6.0-8.3 (test nqmn=557) ALBUMIN (BEAKER) (test 3.6 g/dL 3.5-5.0 wypc=0598) ALKALINE PHOSPHATASE 80 U/L 40-150 (BEAKER) (test jjsm=516) BILIRUBIN TOTAL (BEAKER) 1.2 mg/dL 0.2-1.2 (test darc=429) SODIUM (BEAKER) (test 133 meq/L 136-145 acij=018) POTASSIUM (BEAKER) (test 5.4 meq/L 3.5-5.1 bkvd=736) CHLORIDE (BEAKER) (test 104 meq/L 98-107 ohpd=963) CO2 (BEAKER) (test 22 meq/L 22-29 fowk=042) BLOOD UREA NITROGEN 27 mg/dL 7-21 (BEAKER) (test asbg=183) CREATININE (BEAKER) (test 1.58 mg/dL 0.57-1.25 eeii=935) GLUCOSE RANDOM (BEAKER) 300 mg/dL 70-105 (test ddbw=393) CALCIUM (BEAKER) (test 8.4 mg/dL 8.4-10.2 mqko=271) AST (SGOT) (BEAKER) (test 99 U/L 5-34 unlp=269) ALT (SGPT) (BEAKER) (test 52 U/L 6-55 ilsm=730) EGFR (BEAKER) (test 33 mL/min/1.73 sq m ESTIMATED GFR IS NOT hvwp=5364) ACCURATE CREATININE CLEARANCE IN PREDICTING GLOMERULAR FILTRATION RATE. ESTIMATED GFR IS NOT APPLICABLE FOR DIALYSIS PATIENTS. PROTHROMBIN [id number] 05:57:00 Test Item Value Reference Range Comments PROTIME (BEAKER) (test ufmx=378) 16.4 seconds 11.7-14.7 INR (BEAKER) (test srlp=323) 1.3 <=5.9 RECOMMENDED COUMADIN/WARFARIN INR THERAPY RANGESSTANDARD DOSE: 2.0 - 3.0 Includes: PROPHYLAXIS forvenous thrombosis, systemic embolization; TREATMENT for venous thrombosis and/or pulmonary embolus.HIGH RISK: Target INR is 2.5-3.5 for patients with mechanical heart valves.CBC W/PLT COUNT & AUTO [id number] 05:54:00 Test Item Value Reference Range Comments WHITE BLOOD CELL COUNT (BEAKER) (test ghaz=996) 7.9 K/ L 3.5-10.5 RED BLOOD CELL COUNT (BEAKER) (test obhs=083) 3.24 M/ L 3.93-5.22 HEMOGLOBIN (BEAKER) (test pydv=356) 8.9 GM/DL 11.2-15.7 HEMATOCRIT (BEAKER) (test nbbg=971) 28.0 % 34.1-44.9 MEAN CORPUSCULAR VOLUME (BEAKER) (test hvuk=814) 86.4 fL 79.4-94.8 MEAN CORPUSCULAR HEMOGLOBIN (BEAKER) (test 27.5 pg 25.6-32.2 jbol=186) MEAN CORPUSCULAR HEMOGLOBIN CONC (BEAKER) (test 31.8 GM/DL 32.2-35.5 cliz=361) RED CELL DISTRIBUTION WIDTH (BEAKER) (test 14.4 % 11.7-14.4 jacy=645) PLATELET COUNT (BEAKER) (test zrhm=932) 132 K/CU MM 150-450 MEAN PLATELET VOLUME (BEAKER) (test skgi=357) 9.3 fL 9.4-12.3 NUCLEATED RED BLOOD CELLS (BEAKER) (test 0 /100 WBC 0-0 mhlh=374) NEUTROPHILS RELATIVE PERCENT (BEAKER) (test 83 % ayct=775) LYMPHOCYTES RELATIVE PERCENT (BEAKER) (test 10 % ntxc=961) MONOCYTES RELATIVE PERCENT (BEAKER) (test 7 % dogi=235) EOSINOPHILS RELATIVE PERCENT (BEAKER) (test 0 % urja=366) BASOPHILS RELATIVE PERCENT (BEAKER) (test 0 % rejq=438) NEUTROPHILS ABSOLUTE COUNT (BEAKER) (test 6.55 K/ L 1.56-6.13 cdur=509) LYMPHOCYTES ABSOLUTE COUNT (BEAKER) (test 0.77 K/ L 1.18-3.74 uuka=585) MONOCYTES ABSOLUTE COUNT (BEAKER) (test 0.55 K/ L 0.24-0.36 dujv=980) EOSINOPHILS ABSOLUTE COUNT (BEAKER) (test 0.00 K/ L 0.04-0.36 uqio=357) BASOPHILS ABSOLUTE COUNT (BEAKER) (test 0.02 K/ L 0.01-0.08 exor=387) IMMATURE GRANULOCYTES-RELATIVE PERCENT (BEAKER) 0 % 0-1 (test tzsn=3726) POCT-GLUCOSE [id number] 19:01:00 Test Item Value Reference Range Comments POC-GLUCOSE METER (BEAKER) 301 mg/dL 70-110 TESTED AT [facility] [address] [facility] (test qgpr=7588) [facility] [address] [address], ABDOMEN, WITHOUT [id number] 12:33:00FINAL REPORT ABDOMINAL CT DATED 02/19/2019 CLINICAL [...] 1. Cirrhosis with splenomegaly.2. Ascites. Signed: Giovanni Haas MDReport Verified Date/Time: 02/19/2019 12:33:54 Reading Location: [facility] C013Y CT Body Reading Room Electronicallysigned by: GIOVANNI HAAS M.D. on 02/19/2019 12:33 PMBODY FLUID CULTURE + GRAM [id number] 12:08:00 Test Item Value Reference Range Comments CULTURE (BEAKER) (test ffrv=3507) No growth GRAM STAIN RESULT (BEAKER) (test <1+ WBCs ctsj=2905) GRAM STAIN RESULT (BEAKER) (test No organisms seen kqtm=71754) POCT-GLUCOSE [id number] 09:38:00 Test Item Value Reference Range Comments POC-GLUCOSE METER (BEAKER) 274 mg/dL 70-110 TESTED AT [address] (test ryfg=1151) [facility] [address] CALCIUM, [id number] 06:56:00 Test Item Value Reference Range Comments CALCIUM IONIZED (BEAKER) (test cohb=412) 1.05 mmol/L 1.12-1.27 PH, BLOOD (BEAKER) (test cpdt=8133) 7.40 [id number] 06:22:00 Test Item Value Reference Range Comments PHOSPHORUS (BEAKER) (test vlox=516) 2.3 mg/dL 2.3-4.7 [id number] 06:22:00 Test Item Value Reference Range Comments MAGNESIUM (BEAKER) (test lasx=651) 1.7 mg/dL 1.6-2.6 HEPATIC FUNCTION [id number] 06:22:00 Test Item Value Reference Range Comments TOTAL PROTEIN (BEAKER) (test txbk=346) 5.6 gm/dL 6.0-8.3 ALBUMIN (BEAKER) (test zkvf=3622) 3.4 g/dL 3.5-5.0 BILIRUBIN TOTAL (BEAKER) (test toym=949) 0.9 mg/dL 0.2-1.2 BILIRUBIN DIRECT (BEAKER) (test xyjm=380) 0.4 mg/dL 0.1-0.5 ALKALINE PHOSPHATASE (BEAKER) (test tvwc=637) 121 U/L 40-150 AST (SGOT) (BEAKER) (test dlby=190) 28 U/L 5-34 ALT (SGPT) (BEAKER) (test hpor=297) 12 U/L 6-55 COMPREHENSIVE METABOLIC [id number] 06:22:00 Test Item Value Reference Range Comments TOTAL PROTEIN (BEAKER) 5.6 gm/dL 6.0-8.3 (test nszd=295) ALBUMIN (BEAKER) (test 3.4 g/dL 3.5-5.0 zlaq=1854) ALKALINE PHOSPHATASE 121 U/L 40-150 (BEAKER) (test skko=329) BILIRUBIN TOTAL (BEAKER) 0.9 mg/dL 0.2-1.2 (test exqh=231) SODIUM (BEAKER) (test 135 meq/L 136-145 smtb=210) POTASSIUM (BEAKER) (test 4.5 meq/L 3.5-5.1 turd=241) CHLORIDE (BEAKER) (test 105 meq/L 98-107 qsjk=860) CO2 (BEAKER) (test 22 meq/L 22-29 mmxb=074) BLOOD UREA NITROGEN 29 mg/dL 7-21 (BEAKER) (test rpbw=716) CREATININE (BEAKER) (test 1.38 mg/dL 0.57-1.25 buye=341) GLUCOSE RANDOM (BEAKER) 313 mg/dL 70-105 (test iwht=065) CALCIUM (BEAKER) (test 8.7 mg/dL 8.4-10.2 lnsa=368) AST (SGOT) (BEAKER) (test 28 U/L 5-34 zolu=194) ALT (SGPT) (BEAKER) (test 12 U/L 6-55 uawm=389) EGFR (BEAKER) (test 39 mL/min/1.73 sq m ESTIMATED GFR IS NOT ryvk=9185) ACCURATE CREATININE CLEARANCE IN PREDICTING GLOMERULAR FILTRATION RATE. ESTIMATED GFR IS NOT APPLICABLE FOR DIALYSIS PATIENTS. PROTHROMBIN [id number] 06:15:00 Test Item Value Reference Range Comments PROTIME (BEAKER) (test svzz=578) 14.0 seconds 11.7-14.7 INR (BEAKER) (test gzrk=297) 1.1 <=5.9 RECOMMENDED COUMADIN/WARFARIN INR THERAPY RANGESSTANDARD DOSE: 2.0 - 3.0 Includes: PROPHYLAXIS forvenous thrombosis, systemic embolization; TREATMENT for venous thrombosis and/or pulmonary embolus.HIGH RISK: Target INR is 2.5-3.5 for patients with mechanical heart valves.CBC W/PLT COUNT & AUTO [id number] 05:57:00 Test Item Value Reference Range Comments WHITE BLOOD CELL COUNT (BEAKER) (test rbco=291) 6.9 K/ L 3.5-10.5 RED BLOOD CELL COUNT (BEAKER) (test dadg=736) 3.83 M/ L 3.93-5.22 HEMOGLOBIN (BEAKER) (test hpgw=491) 10.5 GM/DL 11.2-15.7 HEMATOCRIT (BEAKER) (test iiwu=066) 33.1 % 34.1-44.9 MEAN CORPUSCULAR VOLUME (BEAKER) (test fhsl=512) 86.4 fL 79.4-94.8 MEAN CORPUSCULAR HEMOGLOBIN (BEAKER) (test 27.4 pg 25.6-32.2 ltth=863) MEAN CORPUSCULAR HEMOGLOBIN CONC (BEAKER) (test 31.7 GM/DL 32.2-35.5 jbhq=075) RED CELL DISTRIBUTION WIDTH (BEAKER) (test 14.4 % 11.7-14.4 mkec=980) PLATELET COUNT (BEAKER) (test fnrc=396) 175 K/CU MM 150-450 MEAN PLATELET VOLUME (BEAKER) (test ghwh=207) 9.9 fL 9.4-12.3 NUCLEATED RED BLOOD CELLS (BEAKER) (test 0 /100 WBC 0-0 zmmj=868) NEUTROPHILS RELATIVE PERCENT (BEAKER) (test 73 % fmjj=581) LYMPHOCYTES RELATIVE PERCENT (BEAKER) (test 16 % vxnw=577) MONOCYTES RELATIVE PERCENT (BEAKER) (test 7 % tair=140) EOSINOPHILS RELATIVE PERCENT (BEAKER) (test 4 % cbkg=525) BASOPHILS RELATIVE PERCENT (BEAKER) (test 1 % svzq=480) NEUTROPHILS ABSOLUTE COUNT (BEAKER) (test 4.99 K/ L 1.56-6.13 ldzi=213) LYMPHOCYTES ABSOLUTE COUNT (BEAKER) (test 1.09 K/ L 1.18-3.74 weck=424) MONOCYTES ABSOLUTE COUNT (BEAKER) (test 0.50 K/ L 0.24-0.36 xgqr=924) EOSINOPHILS ABSOLUTE COUNT (BEAKER) (test 0.25 K/ L 0.04-0.36 cgsr=999) BASOPHILS ABSOLUTE COUNT (BEAKER) (test 0.04 K/ L 0.01-0.08 rrwo=623) IMMATURE GRANULOCYTES-RELATIVE PERCENT (BEAKER) 0 % 0-1 (test uxzr=2695) POCT-GLUCOSE [id number] 23:05:00 Test Item Value Reference Range Comments POC-GLUCOSE METER (BEAKER) 412 mg/dL 70-110 Will Repeat Test/TESTED AT (test djzx=2876) [address] [address] POCT-GLUCOSE [id number] 22:12:00 Test Item Value Reference Range Comments POC-GLUCOSE METER (BEAKER) 371 mg/dL 70-110 TESTED AT [address] (test ksrd=7330) [facility] [address] BODY FLUID CELL COUNT WITH [id number] 13:06:00 Test Item Value Reference Range Comments APPEARANCE FLUID (BEAKER) (test dbir=278) Slightly Hazy Clear COLOR FLUID (BEAKER) (test vigi=323) Yellow Colorless, Straw RBC FLUID (BEAKER) (test qsxv=689) 252 /cu mm <=1 ADJUSTED WBC FLUID (BEAKER) (test acml=2519) 112 /cu mm <=5 LINING CELLS (BEAKER) (test aqow=0440) 10 /cu mm <=1 NEUTROPHILS FLUID (BEAKER) (test qohn=9040) 8 % LYMPHS FLUID (BEAKER) (test fbwz=362) 40 % MONO/MACROPHAGE FLUID (BEAKER) (test 43 % vkhj=679) EOSINOPHILS FLUID (BEAKER) (test xqae=963) 0 % BASO FLUID (BEAKER) (test ovqi=785) 0 % CONTAINER BODY FLUID (BEAKER) (test EDTA Tube mwtf=3426) U/S, [id number] 10:21:00Limit 8 LReason for exam:->ascites, limit 8 [...] skin and deep soft tissues. A 5 Austrian one-step catheter was inserted and removed from the peritoneal space and approximately 8.0 liters of clear yellow fluid was aspirated from the abdomen. There were no immediate complications. Impression: Successful ultrasound guided paracentesis with aspiration of 8.0 liters of fluid. Signed: Akil Chung MDReport Verified Date/ Time: 02/18/2019 10:21:08 Reading Location: [address] Ultrasound Reading Room [id number] 07:08:00 Test Item Value Reference Range Comments MAGNESIUM (BEAKER) (test buav=130) 1.7 mg/dL 1.6-2.6 HEPATIC FUNCTION [id number] 07:08:00 Test Item Value Reference Range Comments TOTAL PROTEIN (BEAKER) (test qwfb=920) 5.4 gm/dL 6.0-8.3 ALBUMIN (BEAKER) (test fgnk=7999) 3.2 g/dL 3.5-5.0 BILIRUBIN TOTAL (BEAKER) (test yaze=900) 0.8 mg/dL 0.2-1.2 BILIRUBIN DIRECT (BEAKER) (test vlba=930) 0.4 mg/dL 0.1-0.5 ALKALINE PHOSPHATASE (BEAKER) (test vioh=428) 104 U/L 40-150 AST (SGOT) (BEAKER) (test rnup=991) 20 U/L 5-34 ALT (SGPT) (BEAKER) (test zbtz=966) 10 U/L 6-55 COMPREHENSIVE METABOLIC [id number] 07:08:00 Test Item Value Reference Range Comments TOTAL PROTEIN (BEAKER) 5.4 gm/dL 6.0-8.3 (test xlvz=568) ALBUMIN (BEAKER) (test 3.2 g/dL 3.5-5.0 tfng=0405) ALKALINE PHOSPHATASE 104 U/L 40-150 (BEAKER) (test sfqc=225) BILIRUBIN TOTAL (BEAKER) 0.8 mg/dL 0.2-1.2 (test jtbi=940) SODIUM (BEAKER) (test 136 meq/L 136-145 zdmy=551) POTASSIUM (BEAKER) (test 4.3 meq/L 3.5-5.1 hmxn=556) CHLORIDE (BEAKER) (test 108 meq/L 98-107 vcai=949) CO2 (BEAKER) (test 22 meq/L 22-29 dfir=872) BLOOD UREA NITROGEN 31 mg/dL 7-21 (BEAKER) (test txso=322) CREATININE (BEAKER) (test 1.26 mg/dL 0.57-1.25 nsnl=599) GLUCOSE RANDOM (BEAKER) 262 mg/dL 70-105 (test bjny=321) CALCIUM (BEAKER) (test 8.5 mg/dL 8.4-10.2 khpr=299) AST (SGOT) (BEAKER) (test 20 U/L 5-34 uisr=927) ALT (SGPT) (BEAKER) (test 10 U/L 6-55 xsjb=059) EGFR (BEAKER) (test 43 mL/min/1.73 sq m ESTIMATED GFR IS NOT nfie=5537) ACCURATE CREATININE CLEARANCE IN PREDICTING GLOMERULAR FILTRATION RATE. ESTIMATED GFR IS NOT APPLICABLE FOR DIALYSIS PATIENTS. [id number] 07:07:00 Test Item Value Reference Range Comments PHOSPHORUS (BEAKER) (test pecw=883) 2.7 mg/dL 2.3-4.7 POCT-GLUCOSE [id number] 06:31:00 Test Item Value Reference Range Comments POC-GLUCOSE METER (BEAKER) 249 mg/dL 70-110 TESTED AT [facility] [address] [facility] (test jqid=4249) [facility] [address] URINALYSIS W/ [id number] 06:17:00 Test Item Value Reference Range Comments COLOR (BEAKER) (test szpy=809) Yellow CLARITY (BEAKER) (test iztb=963) Clear SPECIFIC GRAVITY UA (BEAKER) (test kqxs=129) 1.013 1.001-1.035 PH UA (BEAKER) (test ccdd=656) 5.0 5.0-8.0 PROTEIN UA (BEAKER) (test vcse=171) Negative Negative GLUCOSE UA (BEAKER) (test vrgt=605) 100 mg/dL Negative KETONES UA (BEAKER) (test assz=138) Negative Negative BILIRUBIN UA (BEAKER) (test cjsr=840) Negative Negative BLOOD UA (BEAKER) (test iscb=873) Negative Negative NITRITE UA (BEAKER) (test mjao=641) Negative Negative LEUKOCYTE ESTERASE UA (BEAKER) (test sfer=217) Large Negative UROBILINOGEN UA (BEAKER) (test niuz=795) 0.2 mg/dL 0.2-1.0 RBC UA (BEAKER) (test uxxs=179) 2 /HPF WBC UA (BEAKER) (test njhb=850) 24 /HPF SQUAMOUS EPITHELIAL (BEAKER) (test hkhs=526) 14 /HPF HYALINE CASTS (BEAKER) (test bkoe=646) 3 /LPF SOURCE(BEAKER) (test rxvy=6906) Urine, Voided [id number] 05:53:00 Test Item Value Reference Range Comments PARTIAL THROMBOPLASTIN TIME (BEAKER) (test 20.1 seconds 22.5-36.0 alkw=728) CALCIUM, [id number] 05:50:00 Test Item Value Reference Range Comments CALCIUM IONIZED (BEAKER) (test virv=211) 1.00 mmol/L 1.12-1.27 PH, BLOOD (BEAKER) (test ccot=9285) 7.43 PROTHROMBIN [id number] 04:54:00 Test Item Value Reference Range Comments PROTIME (BEAKER) (test iccp=419) 13.8 seconds 11.7-14.7 INR (BEAKER) (test jeyj=723) 1.0 <=5.9 RECOMMENDED COUMADIN/WARFARIN INR THERAPY RANGESSTANDARD DOSE: 2.0 - 3.0 Includes: PROPHYLAXIS forvenous thrombosis, systemic embolization; TREATMENT for venous thrombosis and/or pulmonary embolus.HIGH RISK: Target INR is 2.5-3.5 for patients with mechanical heart valves.CREATININE, RANDOM [id number] 04: 48:00 Test Item Value Reference Range Comments CREATININE URINE (BEAKER) (test apmu=187) 115.9 mg/dL Reference Range: No NormalsPROTEIN, RANDOM [id number] 04:48:00 Test Item Value Reference Range Comments PROTEIN, URINE (BEAKER) (test dzfv=3228) 12 mg/dL 0-14 CBC W/PLT COUNT & AUTO [id number] 04:30:00 Test Item Value Reference Range Comments WHITE BLOOD CELL COUNT (BEAKER) (test doic=929) 5.2 K/ L 3.5-10.5 RED BLOOD CELL COUNT (BEAKER) (test nqbs=016) 3.58 M/ L 3.93-5.22 HEMOGLOBIN (BEAKER) (test rqqe=523) 9.8 GM/DL 11.2-15.7 HEMATOCRIT (BEAKER) (test ppfs=041) 31.6 % 34.1-44.9 MEAN CORPUSCULAR VOLUME (BEAKER) (test bmua=759) 88.3 fL 79.4-94.8 MEAN CORPUSCULAR HEMOGLOBIN (BEAKER) (test 27.4 pg 25.6-32.2 asdi=959) MEAN CORPUSCULAR HEMOGLOBIN CONC (BEAKER) (test 31.0 GM/DL 32.2-35.5 mwae=175) RED CELL DISTRIBUTION WIDTH (BEAKER) (test 14.4 % 11.7-14.4 elyo=111) PLATELET COUNT (BEAKER) (test oyjv=641) 173 K/CU MM 150-450 MEAN PLATELET VOLUME (BEAKER) (test ynww=119) 9.6 fL 9.4-12.3 NUCLEATED RED BLOOD CELLS (BEAKER) (test 0 /100 WBC 0-0 aovm=161) NEUTROPHILS RELATIVE PERCENT (BEAKER) (test 67 % tuww=239) LYMPHOCYTES RELATIVE PERCENT (BEAKER) (test 19 % clax=905) MONOCYTES RELATIVE PERCENT (BEAKER) (test 8 % rokm=882) EOSINOPHILS RELATIVE PERCENT (BEAKER) (test 5 % jaoc=688) BASOPHILS RELATIVE PERCENT (BEAKER) (test 1 % wtbc=027) NEUTROPHILS ABSOLUTE COUNT (BEAKER) (test 3.43 K/ L 1.56-6.13 huzq=789) LYMPHOCYTES ABSOLUTE COUNT (BEAKER) (test 0.98 K/ L 1.18-3.74 kmfb=214) MONOCYTES ABSOLUTE COUNT (BEAKER) (test 0.42 K/ L 0.24-0.36 smch=402) EOSINOPHILS ABSOLUTE COUNT (BEAKER) (test 0.26 K/ L 0.04-0.36 mquv=817) BASOPHILS ABSOLUTE COUNT (BEAKER) (test 0.04 K/ L 0.01-0.08 hiei=346) IMMATURE GRANULOCYTES-RELATIVE PERCENT (BEAKER) 0 % 0-1 (test dtkk=4578) U/S, ABDOMINAL, WITH [id number] 03:48:00Reason for exam:->TIPS workup , assess for [...] MDReport Verified Date/Time: 02/18/2019 03:48:21 Reading Location: [facility] C013V Neuro Reading Room Electronically signed by: Se SCHNEIDER 2018 03:48 AMPOCT-GLUCOSE [id number] 00:28:00 Test Item Value Reference Range Comments POC-GLUCOSE METER (BEAKER) 330 mg/dL 70-110 Will Repeat Test/TESTED AT (test zmkb=5379) [facility] [address] [facility] [address] BODY FLUID CELL COUNT WITH [id number] 18:02:00 Test Item Value Reference Range Comments APPEARANCE FLUID (BEAKER) (test zsqu=811) Clear Clear COLOR FLUID (BEAKER) (test cylf=499) Yellow Colorless, Straw RBC FLUID (BEAKER) (test asdy=031) 20 /cu mm <=1 ADJUSTED WBC FLUID (BEAKER) (test qtgq=3252) 50 /cu mm <=5 LINING CELLS (BEAKER) (test npak=9200) 0 /cu mm <=1 NEUTROPHILS FLUID (BEAKER) (test quwa=5346) 1 % LYMPHS FLUID (BEAKER) (test vnod=597) 38 % MONO/MACROPHAGE FLUID (BEAKER) (test hsyy=630) 61 % EOSINOPHILS FLUID (BEAKER) (test yypu=452) 0 % BASO FLUID (BEAKER) (test zlly=654) 0 % CONTAINER BODY FLUID (BEAKER) (test bvot=2175) EDTA Tube U/S, [id number] 16:30:00limit volume to 8 LReason for exam:-> [...] of serous fluid was removed. Signed: Jessika Sadlereport Verified Date/Time: 02/17 16:30:42 Reading Location: [facility] P006J Ultrasound Reading Room POCT-GLUCOSE [id number] 09:48:00 Test Item Value Reference Range Comments POC-GLUCOSE METER (BEAKER) 198 mg/dL 70-110 TESTED AT [address] (test jyqg=1713) [place] [address] BASIC METABOLIC [id number] 06:30:00 Test Item Value Reference Range Comments SODIUM (BEAKER) (test 137 meq/L 136-145 udfn=160) POTASSIUM (BEAKER) (test 4.5 meq/L 3.5-5.1 lmum=970) CHLORIDE (BEAKER) (test 107 meq/L 98-107 zmte=530) CO2 (BEAKER) (test 24 meq/L 22-29 rzhr=477) BLOOD UREA NITROGEN 41 mg/dL 7-21 (BEAKER) (test vzbp=888) CREATININE (BEAKER) (test 1.48 mg/dL 0.57-1.25 byjy=255) GLUCOSE RANDOM (BEAKER) 200 mg/dL 70-105 (test kzxe=358) CALCIUM (BEAKER) (test 8.9 mg/dL 8.4-10.2 qmws=980) EGFR (BEAKER) (test 36 mL/min/1.73 sq m ESTIMATED GFR IS NOT feev=3373) ACCURATE CREATININE CLEARANCE IN PREDICTING GLOMERULAR FILTRATION RATE. ESTIMATED GFR IS NOT APPLICABLE FOR DIALYSIS PATIENTS. POCT-GLUCOSE [id number] 17:31:00 Test Item Value Reference Range Comments POC-GLUCOSE METER (BEAKER) 165 mg/dL 70-110 TESTED AT [address] (test hmpi=9325) [place] [address] U/S, [id number] 16:00:00Reason for exam:->ascites SOBFINAL REPORT PROCEDURE: Ultrasound-guided paracentesis. INDICATION: Ascites. DESCRIPTION: This paracentesis was performed by Lesley Parnell under the direct supervision of Thomas Hendrix. After obtaining informed written consent, ultrasound scan of the abdomen identified ascites in the right lower quadrant. The overlying skin was prepped and draped in the usual, sterile fashion andlocal 2% lidocaine anesthesia was administered. A 5 Austrian catheter was advanced into the peritonealcavity and 6000 mL of clear yellow fluid was removed. The catheter was removed without immediate complication. Samples were sent for analysis. IMPRESSION: Uncomplicated ultrasound-guided paracentesis with 6000 mL fluid removed. Signed: Thomas Hendrix MDReport Verified Date/Time: 16:00:46 Reading Location: [address] Ultrasound Reading Room BODY FLUID CELL COUNT WITH [id number] 15:52:00 Test Item Value Reference Range Comments APPEARANCE FLUID (BEAKER) (test nsue=123) Clear Clear COLOR FLUID (BEAKER) (test tale=209) Yellow Colorless, Straw RBC FLUID (BEAKER) (test nyos=191) 10 /cu mm <=1 ADJUSTED WBC FLUID (BEAKER) (test hbbd=2932) 80 /cu mm <=5 LINING CELLS (BEAKER) (test lboq=1016) 0 /cu mm <=1 NEUTROPHILS FLUID (BEAKER) (test zvmb=8505) 5 % LYMPHS FLUID (BEAKER) (test hvai=206) 35 % MONO/MACROPHAGE FLUID (BEAKER) (test hjrt=416) 59 % EOSINOPHILS FLUID (BEAKER) (test uhzh=090) 1 % BASO FLUID (BEAKER) (test ykio=156) 0 % CONTAINER BODY FLUID (BEAKER) (test uhph=7379) EDTA Tube BASIC METABOLIC [id number] 07:28:00 Test Item Value Reference Range Comments SODIUM (BEAKER) (test 134 meq/L 136-145 ljug=546) POTASSIUM (BEAKER) (test 5.0 meq/L 3.5-5.1 ebcy=102) CHLORIDE (BEAKER) (test 107 meq/L 98-107 wjql=147) CO2 (BEAKER) (test 22 meq/L 22-29 urii=493) BLOOD UREA NITROGEN 46 mg/dL 7-21 (BEAKER) (test mvne=926) CREATININE (BEAKER) (test 1.61 mg/dL 0.57-1.25 vrrg=078) GLUCOSE RANDOM (BEAKER) 220 mg/dL 70-105 (test iazy=294) CALCIUM (BEAKER) (test 9.0 mg/dL 8.4-10.2 yuub=964) EGFR (BEAKER) (test 33 mL/min/1.73 sq m ESTIMATED GFR IS NOT oinp=7156) ACCURATE CREATININE CLEARANCE IN PREDICTING GLOMERULAR FILTRATION RATE. ESTIMATED GFR IS NOT APPLICABLE FOR DIALYSIS PATIENTS. HEPATIC FUNCTION [id number] 07:28:00 Test Item Value Reference Range Comments TOTAL PROTEIN (BEAKER) (test fpjh=152) 5.9 gm/dL 6.0-8.3 ALBUMIN (BEAKER) (test lnep=6339) 3.0 g/dL 3.5-5.0 BILIRUBIN TOTAL (BEAKER) (test zsnz=414) 0.6 mg/dL 0.2-1.2 BILIRUBIN DIRECT (BEAKER) (test brzf=951) 0.3 mg/dL 0.1-0.5 ALKALINE PHOSPHATASE (BEAKER) (test kxyr=106) 154 U/L 40-150 AST (SGOT) (BEAKER) (test ggjl=472) 22 U/L 5-34 ALT (SGPT) (BEAKER) (test rsxh=105) 12 U/L 6-55 [id number] 07:27:00 Test Item Value Reference Range Comments MAGNESIUM (BEAKER) (test auxc=823) 2.2 mg/dL 1.6-2.6 CBC W/PLT COUNT & AUTO [id number] 07:06:00 Test Item Value Reference Range Comments WHITE BLOOD CELL COUNT (BEAKER) (test wpsa=124) 6.2 K/ L 3.5-10.5 RED BLOOD CELL COUNT (BEAKER) (test iorn=840) 3.62 M/ L 3.93-5.22 HEMOGLOBIN (BEAKER) (test gywb=907) 9.8 GM/DL 11.2-15.7 HEMATOCRIT (BEAKER) (test mcfz=360) 31.4 % 34.1-44.9 MEAN CORPUSCULAR VOLUME (BEAKER) (test kppj=499) 86.7 fL 79.4-94.8 MEAN CORPUSCULAR HEMOGLOBIN (BEAKER) (test 27.1 pg 25.6-32.2 kqjw=495) MEAN CORPUSCULAR HEMOGLOBIN CONC (BEAKER) (test 31.2 GM/DL 32.2-35.5 zekj=734) RED CELL DISTRIBUTION WIDTH (BEAKER) (test 14.5 % 11.7-14.4 tuae=556) PLATELET COUNT (BEAKER) (test mclt=682) 198 K/CU MM 150-450 MEAN PLATELET VOLUME (BEAKER) (test bayz=476) 9.8 fL 9.4-12.3 NUCLEATED RED BLOOD CELLS (BEAKER) (test 0 /100 WBC 0-0 nfdl=786) NEUTROPHILS RELATIVE PERCENT (BEAKER) (test 64 % dwzb=891) LYMPHOCYTES RELATIVE PERCENT (BEAKER) (test 22 % gkjn=320) MONOCYTES RELATIVE PERCENT (BEAKER) (test 9 % vnuh=899) EOSINOPHILS RELATIVE PERCENT (BEAKER) (test 5 % crli=797) BASOPHILS RELATIVE PERCENT (BEAKER) (test 1 % xdqz=315) NEUTROPHILS ABSOLUTE COUNT (BEAKER) (test 3.93 K/ L 1.56-6.13 rdqa=811) LYMPHOCYTES ABSOLUTE COUNT (BEAKER) (test 1.35 K/ L 1.18-3.74 bwhy=093) MONOCYTES ABSOLUTE COUNT (BEAKER) (test 0.53 K/ L 0.24-0.36 lygl=314) EOSINOPHILS ABSOLUTE COUNT (BEAKER) (test 0.28 K/ L 0.04-0.36 vkdo=968) BASOPHILS ABSOLUTE COUNT (BEAKER) (test 0.05 K/ L 0.01-0.08 nwyx=108) IMMATURE GRANULOCYTES-RELATIVE PERCENT (BEAKER) 1 % 0-1 (test chmf=9808) [id number] 06:49:00 Test Item Value Reference Range Comments PROTIME (BEAKER) (test xdld=208) 13.4 seconds 11.7-14.7 INR (BEAKER) (test rdwn=780) 1.0 <=5.9 PARTIAL THROMBOPLASTIN TIME (BEAKER) (test 30.9 seconds 22.5-36.0 yxie=818) RECOMMENDED COUMADIN/WARFARIN INR THERAPY RANGESSTANDARD DOSE: 2.0 - 3.0 Includes: PROPHYLAXIS forvenous thrombosis, systemic embolization; TREATMENT for venous thrombosis and/or pulmonary embolus.HIGH RISK: Target INR is 2.5-3.5 for patients with mechanical heart valves.URINALYSIS W/ REFLEX URINE [id number] 05:32:00 Test Item Value Reference Range Comments COLOR (BEAKER) (test nedi=134) Yellow CLARITY (BEAKER) (test qujb=845) Hazy SPECIFIC GRAVITY UA (BEAKER) (test hutp=621) 1.021 1.001-1.035 PH UA (BEAKER) (test bmta=345) 5.5 5.0-8.0 PROTEIN UA (BEAKER) (test qjhi=983) 30 mg/dL Negative GLUCOSE UA (BEAKER) (test zdcq=314) Negative Negative KETONES UA (BEAKER) (test dvrq=157) Negative Negative BILIRUBIN UA (BEAKER) (test tbrl=389) Negative Negative BLOOD UA (BEAKER) (test ajie=304) Negative Negative NITRITE UA (BEAKER) (test fjjq=671) Negative Negative LEUKOCYTE ESTERASE UA (BEAKER) (test xewu=015) Large Negative UROBILINOGEN UA (BEAKER) (test rdip=084) 2.0 mg/dL 0.2-1.0 RBC UA (BEAKER) (test cccj=807) 7 /HPF WBC UA (BEAKER) (test gdkp=215) 7 /HPF MUCUS (BEAKER) (test bnvy=4927) Rare SQUAMOUS EPITHELIAL (BEAKER) (test dzph=920) 6 /HPF HYALINE CASTS (BEAKER) (test twoi=912) 40 /LPF SOURCE(BEAKER) (test esxn=5393) POCT-GLUCOSE [id number] 05:00:00 Test Item Value Reference Range Comments POC-GLUCOSE METER (BEAKER) 227 mg/dL 70-110 TESTED AT [facility] [address] [facility] (test efxr=9344) [facility] [address] ALPHA FETOPROTEIN (AFP), TUMOR [id number] 15:55:00 Test Item Value Reference Range Comments ALPHA-FETOPROTEIN (BEAKER) (test ixak=9934) 3.4 ng/mL <10.0 BASIC METABOLIC [id number] 15:40:00 Test Item Value Reference Range Comments SODIUM (BEAKER) (test 133 meq/L 136-145 lhea=575) POTASSIUM (BEAKER) (test 4.8 meq/L 3.5-5.1 dssm=270) CHLORIDE (BEAKER) (test 101 meq/L 98-107 igja=314) CO2 (BEAKER) (test 23 meq/L 22-29 gjqj=965) BLOOD UREA NITROGEN 37 mg/dL 7-21 (BEAKER) (test pjxf=929) CREATININE (BEAKER) (test 2.17 mg/dL 0.57-1.25 xvnv=425) GLUCOSE RANDOM (BEAKER) 191 mg/dL 70-105 (test xeci=400) CALCIUM (BEAKER) (test 9.2 mg/dL 8.4-10.2 fwpl=364) EGFR (BEAKER) (test 23 mL/min/1.73 sq m ESTIMATED GFR IS NOT dxek=5915) ACCURATE CREATININE CLEARANCE IN PREDICTING GLOMERULAR FILTRATION RATE. ESTIMATED GFR IS NOT APPLICABLE FOR DIALYSIS PATIENTS. HEPATIC FUNCTION [id number] 15:38:00 Test Item Value Reference Range Comments TOTAL PROTEIN (BEAKER) (test dure=159) 6.9 gm/dL 6.0-8.3 ALBUMIN (BEAKER) (test stwx=7782) 3.7 g/dL 3.5-5.0 BILIRUBIN TOTAL (BEAKER) (test kvfi=514) 0.8 mg/dL 0.2-1.2 BILIRUBIN DIRECT (BEAKER) (test wfpw=426) 0.3 mg/dL 0.1-0.5 ALKALINE PHOSPHATASE (BEAKER) (test kzmr=997) 95 U/L 40-150 AST (SGOT) (BEAKER) (test ldzf=287) 24 U/L 5-34 ALT (SGPT) (BEAKER) (test vkbs=919) 14 U/L 6-55 PROTHROMBIN [id number] 15:29:00 Test Item Value Reference Range Comments PROTIME (BEAKER) (test ffih=700) 12.8 seconds 11.7-14.7 INR (BEAKER) (test jceh=393) 1.0 <=5.9 RECOMMENDED COUMADIN/WARFARIN INR THERAPY RANGESSTANDARD DOSE: 2.0 - 3.0 Includes: PROPHYLAXIS forvenous thrombosis, systemic embolization; TREATMENT for venous thrombosis and/or pulmonary embolus.HIGH RISK: Target INR is 2.5-3.5 for patients with mechanical heart valves.CBC W/PLT COUNT & AUTO [id number] 15:17:00 Test Item Value Reference Range Comments WHITE BLOOD CELL COUNT (BEAKER) (test leyi=898) 7.8 K/ L 3.5-10.5 RED BLOOD CELL COUNT (BEAKER) (test hgvz=051) 4.49 M/ L 3.93-5.22 HEMOGLOBIN (BEAKER) (test abna=335) 12.4 GM/DL 11.2-15.7 HEMATOCRIT (BEAKER) (test auhf=096) 39.1 % 34.1-44.9 MEAN CORPUSCULAR VOLUME (BEAKER) (test moiy=606) 87.1 fL 79.4-94.8 MEAN CORPUSCULAR HEMOGLOBIN (BEAKER) (test 27.6 pg 25.6-32.2 omxc=683) MEAN CORPUSCULAR HEMOGLOBIN CONC (BEAKER) (test 31.7 GM/DL 32.2-35.5 ublz=352) RED CELL DISTRIBUTION WIDTH (BEAKER) (test 14.0 % 11.7-14.4 cbgd=391) PLATELET COUNT (BEAKER) (test vnpj=180) 196 K/CU MM 150-450 MEAN PLATELET VOLUME (BEAKER) (test kvys=159) 9.9 fL 9.4-12.3 NUCLEATED RED BLOOD CELLS (BEAKER) (test 0 /100 WBC 0-0 aznu=886) NEUTROPHILS RELATIVE PERCENT (BEAKER) (test 72 % tulx=136) LYMPHOCYTES RELATIVE PERCENT (BEAKER) (test 18 % drqp=908) MONOCYTES RELATIVE PERCENT (BEAKER) (test 6 % gglr=127) EOSINOPHILS RELATIVE PERCENT (BEAKER) (test 4 % kxgs=563) BASOPHILS RELATIVE PERCENT (BEAKER) (test 1 % bnzc=403) NEUTROPHILS ABSOLUTE COUNT (BEAKER) (test 5.62 K/ L 1.56-6.13 ppgj=268) LYMPHOCYTES ABSOLUTE COUNT (BEAKER) (test 1.37 K/ L 1.18-3.74 uaga=468) MONOCYTES ABSOLUTE COUNT (BEAKER) (test 0.43 K/ L 0.24-0.36 qjrd=794) EOSINOPHILS ABSOLUTE COUNT (BEAKER) (test 0.28 K/ L 0.04-0.36 yjwu=159) BASOPHILS ABSOLUTE COUNT (BEAKER) (test 0.07 K/ L 0.01-0.08 ehip=147) IMMATURE GRANULOCYTES-RELATIVE PERCENT (BEAKER) 0 % 0-1 (test rvnf=6775) ANTI-MITOCHONDRIAL AB, REFLEX TO [id number] 08:36:00 Test Item Value Reference Range Comments SCAN RESULT (test pzip=[id number]) OSMOLALITY, [id number] 10:30:00 Test Item Value Reference Range Comments OSMOLALITY, SERUM (BEAKER) (test iyrn=861) 301 mOsm/kg 275-295 POCT-GLUCOSE [id number] 08:26:00 Test Item Value Reference Range Comments POC-GLUCOSE METER (BEAKER) 243 mg/dL 70-110 TESTED AT [facility] [address] (test iysl=2280) [facility] [address] COMPREHENSIVE METABOLIC [id number] 08:05:00 Test Item Value Reference Range Comments TOTAL PROTEIN (BEAKER) 5.5 gm/dL 6.0-8.3 (test tmnj=324) ALBUMIN (BEAKER) (test 3.2 g/dL 3.5-5.0 xzvb=7965) ALKALINE PHOSPHATASE 75 U/L 40-150 (BEAKER) (test uqzc=127) BILIRUBIN TOTAL (BEAKER) 0.9 mg/dL 0.2-1.2 (test fdnz=252) SODIUM (BEAKER) (test 132 meq/L 136-145 obzi=807) POTASSIUM (BEAKER) (test 4.3 meq/L 3.5-5.1 wiiu=248) CHLORIDE (BEAKER) (test 101 meq/L 98-107 kjnz=704) CO2 (BEAKER) (test 25 meq/L 22-29 pgzu=621) BLOOD UREA NITROGEN 45 mg/dL 7-21 (BEAKER) (test akcg=277) CREATININE (BEAKER) (test 1.89 mg/dL 0.57-1.25 rdim=673) GLUCOSE RANDOM (BEAKER) 241 mg/dL 70-105 (test jswt=413) CALCIUM (BEAKER) (test 8.6 mg/dL 8.4-10.2 vkxg=947) AST (SGOT) (BEAKER) (test 19 U/L 5-34 cncl=790) ALT (SGPT) (BEAKER) (test 10 U/L 6-55 koat=724) EGFR (BEAKER) (test 27 mL/min/1.73 sq m ESTIMATED GFR IS NOT mojw=4333) ACCURATE CREATININE CLEARANCE IN PREDICTING GLOMERULAR FILTRATION RATE. ESTIMATED GFR IS NOT APPLICABLE FOR DIALYSIS PATIENTS. [id number] 08:02:00 Test Item Value Reference Range Comments PHOSPHORUS (BEAKER) (test zogr=636) 3.6 mg/dL 2.3-4.7 [id number] 08:02:00 Test Item Value Reference Range Comments MAGNESIUM (BEAKER) (test lqdv=897) 2.0 mg/dL 1.6-2.6 CBC W/PLT COUNT & AUTO [id number] 05:40:00 Test Item Value Reference Range Comments WHITE BLOOD CELL COUNT (BEAKER) (test wbjh=156) 5.7 K/ L 3.5-10.5 RED BLOOD CELL COUNT (BEAKER) (test pbhu=835) 3.76 M/ L 3.93-5.22 HEMOGLOBIN (BEAKER) (test yfor=335) 10.6 GM/DL 11.2-15.7 HEMATOCRIT (BEAKER) (test knbl=515) 32.9 % 34.1-44.9 MEAN CORPUSCULAR VOLUME (BEAKER) (test ealb=370) 87.5 fL 79.4-94.8 MEAN CORPUSCULAR HEMOGLOBIN (BEAKER) (test 28.2 pg 25.6-32.2 gbfo=145) MEAN CORPUSCULAR HEMOGLOBIN CONC (BEAKER) (test 32.2 GM/DL 32.2-35.5 zxae=845) RED CELL DISTRIBUTION WIDTH (BEAKER) (test 14.2 % 11.7-14.4 rlct=582) PLATELET COUNT (BEAKER) (test sbst=090) 142 K/CU MM 150-450 MEAN PLATELET VOLUME (BEAKER) (test zhxb=845) 9.8 fL 9.4-12.3 NUCLEATED RED BLOOD CELLS (BEAKER) (test 0 /100 WBC 0-0 kpft=688) NEUTROPHILS RELATIVE PERCENT (BEAKER) (test 70 % bphr=100) LYMPHOCYTES RELATIVE PERCENT (BEAKER) (test 19 % jmvb=572) MONOCYTES RELATIVE PERCENT (BEAKER) (test 7 % hyax=514) EOSINOPHILS RELATIVE PERCENT (BEAKER) (test 3 % qetd=527) BASOPHILS RELATIVE PERCENT (BEAKER) (test 1 % llxc=685) NEUTROPHILS ABSOLUTE COUNT (BEAKER) (test 3.99 K/ L 1.56-6.13 ymqm=748) LYMPHOCYTES ABSOLUTE COUNT (BEAKER) (test 1.05 K/ L 1.18-3.74 njtv=809) MONOCYTES ABSOLUTE COUNT (BEAKER) (test 0.40 K/ L 0.24-0.36 lmjv=929) EOSINOPHILS ABSOLUTE COUNT (BEAKER) (test 0.16 K/ L 0.04-0.36 buys=183) BASOPHILS ABSOLUTE COUNT (BEAKER) (test 0.04 K/ L 0.01-0.08 mrxt=213) IMMATURE GRANULOCYTES-RELATIVE PERCENT (BEAKER) 0 % 0-1 (test ljtj=2326) CALCIUM, [id number] 05:17:00 Test Item Value Reference Range Comments CALCIUM IONIZED (BEAKER) (test ooel=459) 1.06 mmol/L 1.12-1.27 PH, BLOOD (BEAKER) (test shux=3912) 7.41 U/S, RENAL, [id number] 03:59:00Reason for exam:->HEMALATHA/CKDShould this be performed at [...] Small volume intra-abdominal ascites. Signed: Anurag Wilson [facility] Verified Date/Time: 11/24/2018 03:59:04 Reading Location: [facility] C0T Transitional Reading Room NDO [id number] 23:19:00 Test Item Value Reference Range Comments TROPONIN I (BEAKER) (test zahp=270) < ng/mL 0.00-0.03 Troponin I (TnI) levels [...] acidosis, acute neurological disease, and persistent tachyarrhythmia.POCT-GLUCOSE [id number] 21:12:00 Test Item Value Reference Range Comments POC-GLUCOSE METER (BEAKER) 277 mg/dL 70-110 TESTED AT [address] (test txns=6295) [place] [id number] PROTEIN, RANDOM [id number] 20:11:00 Test Item Value Reference Range Comments PROTEIN, URINE (BEAKER) (test tuzw=7504) 10 mg/dL 0-14 SODIUM, RANDOM [id number] 20:05:00 Test Item Value Reference Range Comments SODIUM URINE (BEAKER) (test omlr=028) < meq/L Reference Range: No NormalsPOCT-GLUCOSE [id number] 17:28:00 Test Item Value Reference Range Comments POC-GLUCOSE METER (BEAKER) 291 mg/dL 70-110 TESTED AT [address] (test pnzs=4721) [place] [id number] POCT-GLUCOSE [id number] 14:02:00 Test Item Value Reference Range Comments POC-GLUCOSE METER (BEAKER) 148 mg/dL 70-110 TESTED AT [address] (test kpmk=4203) [place] [id number] URINALYSIS W/ [id number] 13:32:00 Test Item Value Reference Range Comments COLOR (BEAKER) (test eoqq=488) Yellow CLARITY (BEAKER) (test qjzq=913) Clear SPECIFIC GRAVITY UA (BEAKER) (test 1.015 1.001-1.035 tflf=504) PH UA (BEAKER) (test bgpi=459) 5.0 5.0-8.0 PROTEIN UA (BEAKER) (test lmpo=571) Negative Negative GLUCOSE UA (BEAKER) (test klvk=523) Negative Negative KETONES UA (BEAKER) (test utoi=092) Negative Negative BILIRUBIN UA (BEAKER) (test mtlv=441) Negative Negative BLOOD UA (BEAKER) (test jkbt=822) Negative Negative NITRITE UA (BEAKER) (test orrf=922) Negative Negative LEUKOCYTE ESTERASE UA (BEAKER) (test Negative Negative urrz=307) UROBILINOGEN UA (BEAKER) (test rsmj=936) 0.2 mg/dL 0.2-1.0 RBC UA (BEAKER) (test merg=726) < /HPF WBC UA (BEAKER) (test smhz=515) 2 /HPF BACTERIA (BEAKER) (test gmqf=406) Occasional SQUAMOUS EPITHELIAL (BEAKER) (test 19 /HPF bmyr=256) HYALINE CASTS (BEAKER) (test hzfr=660) 5 /LPF AMORPHOUS CRYSTALS (BEAKER) (test Occasional emap=9306) SOURCE(BEAKER) (test ywlj=4989) Urine, Clean Catch U/S, ABDOMINAL, [id number] 13:29:00Abdomen limited area? Add comment if clarification [...] Valles Verified Date/Time: 11/23/2018 13:29:13 Reading Location: [address] Transitional Reading Room U/S, [id number] 13:01:00Reason for exam:->Therapeutic paracentesisFINAL REPORT Paracentesis dated 11/23/2018 Procedure: Ultrasound-guided paracentesis. Preprocedure diagnosis: Ascites Postprocedure diagnosis: Ascites Conscious sedation: None. Radiologist: Giovanni Haas M.D. Soccer Player: None Anesthesia: 1% Xylocaine mixed with sodium bicarbonate local anesthesia. Technique: After obtaining informed consent, ultrasound-guided paracentesis was performed under usual sterile technique. Using a 5 filipino drainage catheter , puncture was made in the right lower quadrant abdomen. Approximately 16,200 cc of serous fluid was removed. Patient tolerated the procedure well without complication. Complication: None Graft/Implant: None Estimated Blood Loss: None Impression: Ultrasound-guided paracentesis. Signed: Giovanni Haas Verified Date/Time: 11/23/2018 13:01:25 Reading Location: [place] [id number] Ortho Consult Reading Room Electronically signedby: GIOVANNI HAAS M.D. on 2018 01:01 PMCBC W/PLT COUNT & AUTO [id number] 08:55:00 Test Item Value Reference Range Comments WHITE BLOOD CELL COUNT (BEAKER) (test xqqq=622) 5.7 K/ L 3.5-10.5 RED BLOOD CELL COUNT (BEAKER) (test nwni=180) 3.72 M/ L 3.93-5.22 HEMOGLOBIN (BEAKER) (test wced=741) 10.5 GM/DL 11.2-15.7 HEMATOCRIT (BEAKER) (test cgqt=317) 32.5 % 34.1-44.9 MEAN CORPUSCULAR VOLUME (BEAKER) (test gevn=088) 87.4 fL 79.4-94.8 MEAN CORPUSCULAR HEMOGLOBIN (BEAKER) (test 28.2 pg 25.6-32.2 kenx=594) MEAN CORPUSCULAR HEMOGLOBIN CONC (BEAKER) (test 32.3 GM/DL 32.2-35.5 levi=295) RED CELL DISTRIBUTION WIDTH (BEAKER) (test 14.5 % 11.7-14.4 omsp=061) PLATELET COUNT (BEAKER) (test muhq=286) 148 K/CU MM 150-450 MEAN PLATELET VOLUME (BEAKER) (test fjdv=089) 9.4 fL 9.4-12.3 NUCLEATED RED BLOOD CELLS (BEAKER) (test 0 /100 WBC 0-0 ptdx=102) NEUTROPHILS RELATIVE PERCENT (BEAKER) (test 63 % msvz=905) LYMPHOCYTES RELATIVE PERCENT (BEAKER) (test 23 % hhuw=075) MONOCYTES RELATIVE PERCENT (BEAKER) (test 8 % zpgk=486) EOSINOPHILS RELATIVE PERCENT (BEAKER) (test 5 % ogit=642) BASOPHILS RELATIVE PERCENT (BEAKER) (test 1 % mnjl=666) NEUTROPHILS ABSOLUTE COUNT (BEAKER) (test 3.61 K/ L 1.56-6.13 vruf=871) LYMPHOCYTES ABSOLUTE COUNT (BEAKER) (test 1.29 K/ L 1.18-3.74 dbnr=646) MONOCYTES ABSOLUTE COUNT (BEAKER) (test 0.47 K/ L 0.24-0.36 wutb=230) EOSINOPHILS ABSOLUTE COUNT (BEAKER) (test 0.28 K/ L 0.04-0.36 qbrn=963) BASOPHILS ABSOLUTE COUNT (BEAKER) (test 0.05 K/ L 0.01-0.08 xfww=524) IMMATURE GRANULOCYTES-RELATIVE PERCENT (BEAKER) 0 % 0-1 (test xjep=5602) POCT-GLUCOSE [id number] 07:43:00 Test Item Value Reference Range Comments POC-GLUCOSE METER (BEAKER) 196 mg/dL 70-110 TESTED AT [facility] [address] (test muyf=7271) [facility] [address] [id number] 06:53:00 Test Item Value Reference Range Comments FERRITIN (BEAKER) (test iakb=726) 52 ng/mL 5-275 HEPATITIS B [id number] 06:21:00 Test Item Value Reference Range Comments HEPATITIS B CORE TOTAL ANTIBODY (BEAKER) (test Nonreactive Nonreactive ysno=308) HEPATITIS B SURFACE ANTIBODY (BEAKER) (test < mIU/mL <8.0 pkvz=430) HEPATITIS B SURFACE ANTIGEN (2) (BEAKER) (test Nonreactive Nonreactive mnvo=8970) HEPATITIS C [id number] 06:20:00 Test Item Value Reference Range Comments HEPATITIS C ANTIBODY (BEAKER) (test rvup=668) Nonreactive Nonreactive HEPATITIS A [id number] 06:20:00 Test Item Value Reference Range Comments HEPATITIS A IGM ANTIBODY (BEAKER) (test Nonreactive Nonreactive zvek=766) HEPATITIS A IGG ANTIBODY (BEAKER) (test Nonreactive Nonreactive muur=7991) ALPHA FETOPROTEIN (AFP), TUMOR [id number] 06:14:00 Test Item Value Reference Range Comments ALPHA-FETOPROTEIN (BEAKER) (test hvtm=9280) 2.1 ng/mL <10.0 COMPREHENSIVE METABOLIC [id number] 06:01:00 Test Item Value Reference Range Comments TOTAL PROTEIN (BEAKER) 5.9 gm/dL 6.0-8.3 (test jjks=895) ALBUMIN (BEAKER) (test 2.9 g/dL 3.5-5.0 qnjf=1223) ALKALINE PHOSPHATASE 96 U/L 40-150 (BEAKER) (test eqzy=090) BILIRUBIN TOTAL (BEAKER) 0.5 mg/dL 0.2-1.2 (test ymjz=916) SODIUM (BEAKER) (test 132 meq/L 136-145 cumz=672) POTASSIUM (BEAKER) (test 4.3 meq/L 3.5-5.1 lcbq=576) CHLORIDE (BEAKER) (test 100 meq/L 98-107 ojpj=510) CO2 (BEAKER) (test 26 meq/L 22-29 izor=673) BLOOD UREA NITROGEN 50 mg/dL 7-21 (BEAKER) (test qcif=303) CREATININE (BEAKER) (test 2.27 mg/dL 0.57-1.25 enuu=475) GLUCOSE RANDOM (BEAKER) 219 mg/dL 70-105 (test uhiq=602) CALCIUM (BEAKER) (test 8.8 mg/dL 8.4-10.2 bgdx=494) AST (SGOT) (BEAKER) (test 22 U/L 5-34 rlvq=424) ALT (SGPT) (BEAKER) (test 15 U/L 6-55 ukjm=010) EGFR (BEAKER) (test 22 mL/min/1.73 sq m ESTIMATED GFR IS NOT nhqj=8390) ACCURATE CREATININE CLEARANCE IN PREDICTING GLOMERULAR FILTRATION RATE. ESTIMATED GFR IS NOT APPLICABLE FOR DIALYSIS PATIENTS. IRON, TIBC, % SAT. (WITHOUT FERRITIN)2018-11-23 05:55:00 Test Item Value Reference Range Comments IRON (BEAKER) (test ddyu=469) 46.0 ug/dL 40.0-160.0 TOTAL IRON BINDING CAPACITY (BEAKER) (test 269 ug/dL 250-450 kvib=308) IRON % SATURATION (2) (BEAKER) (test uaos=1845) 17 % 20-55 [id number] 05:54:00 Test Item Value Reference Range Comments ALPHA-1 ANTITRYPSIN (BEAKER) (test iybx=189) 202.70 mg/dL 90.00-200.00 COMPREHENSIVE METABOLIC [id number] 00:16:00 Test Item Value Reference Range Comments TOTAL PROTEIN (BEAKER) 6.8 gm/dL 6.0-8.3 (test ixbo=510) ALBUMIN (BEAKER) (test 3.3 g/dL 3.5-5.0 mopl=3042) ALKALINE PHOSPHATASE 114 U/L 40-150 (BEAKER) (test jhgc=388) BILIRUBIN TOTAL (BEAKER) 0.6 mg/dL 0.2-1.2 (test oxky=319) SODIUM (BEAKER) (test 130 meq/L 136-145 fsvn=002) POTASSIUM (BEAKER) (test 4.4 meq/L 3.5-5.1 pcmi=570) CHLORIDE (BEAKER) (test 99 meq/L 98-107 fxfm=149) CO2 (BEAKER) (test 22 meq/L 22-29 toqv=206) BLOOD UREA NITROGEN 46 mg/dL 7-21 (BEAKER) (test rprs=077) CREATININE (BEAKER) (test 2.40 mg/dL 0.57-1.25 fuyp=137) GLUCOSE RANDOM (BEAKER) 153 mg/dL 70-105 (test tmpf=999) CALCIUM (BEAKER) (test 9.1 mg/dL 8.4-10.2 wdtr=044) AST (SGOT) (BEAKER) (test 25 U/L 5-34 jqgo=608) ALT (SGPT) (BEAKER) (test 17 U/L 6-55 hrnm=897) EGFR (BEAKER) (test 21 mL/min/1.73 sq m ESTIMATED GFR IS NOT irfj=2600) ACCURATE CREATININE CLEARANCE IN PREDICTING GLOMERULAR FILTRATION RATE. ESTIMATED GFR IS NOT APPLICABLE FOR DIALYSIS PATIENTS. [id number] 23:52:00 Test Item Value Reference Range Comments PROTIME (BEAKER) (test egys=181) 13.3 seconds 11.7-14.7 INR (BEAKER) (test qgtw=254) 1.0 <=5.9 PARTIAL THROMBOPLASTIN TIME (BEAKER) (test 26.9 seconds 22.5-36.0 psaq=227) RECOMMENDED COUMADIN/WARFARIN INR THERAPY RANGESSTANDARD DOSE: 2.0 - 3.0 Includes: PROPHYLAXIS forvenous thrombosis, systemic embolization; TREATMENT for venous thrombosis and/or pulmonary embolus.HIGH RISK: Target INR is 2.5-3.5 for patients with mechanical heart valves.POCT-GLUCOSE [id number] 21:25:00 Test Item Value Reference Range Comments POC-GLUCOSE METER (BEAKER) 178 mg/dL 70-110 TESTED AT [facility] [address] [facility] (test erci=7771) [facility] [address]
[2019-07-08 07:38] LABS: MPV 6.8 fL (7.6-11.3)
[2019-07-08 07:46] LABS: Protime INR 0.97
[2019-07-08 08:42] VITALS: BMI 46.3
--- NOTE | 2019-07-08 09:42 | RAD REPORT ---
EXAM DESCRIPTION: US - Paracentesis Proc Guidance - 07/08/2019 8:57 am CLINICAL HISTORY: Ascites COMPARISON: Multiple prior studies. TECHNIQUE: The patient presents for ultrasound-guided paracentesis. The procedure, risks and altern atives were discussed with the patient in detail. Oral and written consent were obtained. Time out p rocedure was performed. The patient had no contraindicated allergy or medication history. PT, INR va lues within acceptable limits. Platelet count was 193. Creatinine was 1.72 Preliminary sonographic evaluation identified right lower access site. The skin and deeper tissues w ere anesthetized with 1 percent lidocaine. Under direct sonographic visualization, a paracentesis ca theter was advanced into the peritoneal cavity. Intraperitoneal placement was confirmed. Approximatel y 10 mL of ascites was retained for requested laboratory studies. Large volume drainage was initiated . Approximately 3.5 liters of ascites removed as specified in ordering physician orders. At the conclusion of the procedure, catheter was withdrawn and a bandage placed at the puncture site. Postprocedure care and precaution instructions were given to the patient. Patient was transferred [facility] to same-day surgery for albumin infusion per referring physician order set. IMPRESSION: Ultrasound-guided paracentesis as detailed.
[2019-07-08 10:15] LABS: Platelet Estimate ADEQ
[2019-07-08 11:21] LABS: Body Fluid WBC 117 /mm^3
[2019-07-08 12:37] LABS: Body Fluid Source PERITONEAL
[2019-07-08 12:38] LABS: Appearance SLT. TURBID (CLEAR); Color of fluid Yellow (COLORLESS)
[2019-07-08 13:49] VITALS: TEMP 97
[2019-07-08 13:51] VITALS: BP 123/51; O2SAT 98
== END ==
LOC: DS 06:51
PROVIDERS: ATTEND Internal Medicine Hepatology
DX: R18.8 Other ascites (principal)
CPT/HCPCS: 36415; 89050; 85049; 85610; 82565; 85730; 96365; 49083; P9047

== ENCOUNTER → 2019-08-11 | Day surgery (SDC) | payer OTHER ==
[~2019-08-11] MED LIST changes: -ALBUMIN HUMAN 25% 200 ML IV ONE; +ALBUMIN HUMAN 25% 400 ML IV ONE
[2019-08-11 08:22] LABS: MPV 6.7 fL (7.6-11.3)
[2019-08-11 08:27] VITALS: BMI 46.3
[2019-08-11 08:36] LABS: Protime INR 0.91
[2019-08-11 08:59] LABS: Platelet Estimate ADEQ
--- NOTE | 2019-08-11 10:30 | RAD REPORT ---
EXAM DESCRIPTION: US - Paracentesis Proc Guidance - 08/11/2019 10:08 am CLINICAL HISTORY: ASCITES Ascites COMPARISON: Paracentesis Proc Guidance dated 07/30/2019; Paracentesis Proc Guidance dated 07/27/2019 FINDINGS: Informed consent was obtained and time-out was performed. Patient's abdomen was prepped and draped in the usual sterile fashion. 1% lidocaine was used for loca l anesthetic purposes. A small skin incision was made along the left abdomen. A paracentesis catheter was guided into the pe roneal cavity under sonographic guidance. A small amount of fluid was sent for requested lab studies. A large volume paracentesis was performed . The patient tolerated the procedure well. Patient was administered IV albumin per referring physician protocol following the procedure. IMPRESSION: Successful ultrasound-guided paracentesis.
[2019-08-11 13:01] LABS: Appearance SLT. TURBID (CLEAR); Body Fluid Source PERITONEAL; Color of fluid Yellow (COLORLESS)
[2019-08-11 13:02] LABS: Body Fluid WBC 85 /mm^3
[2019-08-11 13:13] VITALS: BP 140/60; TEMP 97.4; O2SAT 98
--- OUTSIDE RECORDS SUMMARY | 2019-09-12 12:48 | XMS REPORT ---
:1960 Author Organization [facility] Address [address] [place] [address] Dr. Melton [address] [place] [id number] Care Team Providers Name Role Phone DANIEL FREIRE Unavailable Unavailable VINCENZOSHALINI KIM J Unavailable Unavailable IRVIN NARAYANAN Unavailable Unavailable MOJGAN STEWART Unavailable Unavailable ZEB CASEY Unavailable Unavailable Problems This patient has no known problems. Allergies, Adverse Reactions, Alerts This patient has no known allergies or adverse reactions. Medications This patient has no known medications. Results Test Description Test Time Test Comments Text Results Atomic Results Result Comments HEPATIC FUNCTION PANEL 2019-08-24 15:39:00 Test Item Value Reference Range Comments TOTAL PROTEIN (BEAKER) (test dkps=363) 6.5 gm/dL 6.0-8.3 ALBUMIN (BEAKER) (test pvkw=2243) 3.0 g/dL 3.5-5.0 BILIRUBIN TOTAL (BEAKER) (test gfcj=165) 1.5 mg/dL 0.2-1.2 BILIRUBIN DIRECT (BEAKER) (test knfp=859) 0.7 mg/dL 0.1-0.5 ALKALINE PHOSPHATASE (BEAKER) (test dtzq=914) 120 U/L 40-150 AST (SGOT) (BEAKER) (test hcxp=318) 34 U/L 5-34 ALT (SGPT) (BEAKER) (test szvi=379) 21 U/L 6-55 BASIC METABOLIC [id number] 15:39:00 Test Item Value Reference Range Comments SODIUM (BEAKER) (test 135 meq/L 136-145 netl=207) POTASSIUM (BEAKER) (test 3.8 meq/L 3.5-5.1 qgnx=965) CHLORIDE (BEAKER) (test 99 meq/L 98-107 hxpy=598) CO2 (BEAKER) (test 31 meq/L 22-29 yvck=074) BLOOD UREA NITROGEN 21 mg/dL 7-21 (BEAKER) (test gygc=940) CREATININE (BEAKER) (test 1.70 mg/dL 0.57-1.25 hypb=205) GLUCOSE RANDOM (BEAKER) 290 mg/dL 70-105 (test vljs=904) CALCIUM (BEAKER) (test 8.4 mg/dL 8.4-10.2 mqep=823) EGFR (BEAKER) (test 31 mL/min/1.73 sq m ESTIMATED GFR IS NOT kzjn=6570) ACCURATE CREATININE CLEARANCE IN PREDICTING GLOMERULAR FILTRATION RATE. ESTIMATED GFR IS NOT APPLICABLE FOR DIALYSIS PATIENTS. PROTHROMBIN [id number] 15:39:00 Test Item Value Reference Range Comments PROTIME (BEAKER) (test vtue=662) 14.2 seconds 11.9-14.2 INR (BEAKER) (test gxgs=815) 1.2 <=5.9 Effective 04/01/2019: PT Reference Range ChangeNew: 11.9-14.2 Previous: 11.7- 14.7RECOMMENDED COUMADIN/WARFARIN INR THERAPY RANGESSTANDARD DOSE: 2.0-3.0 Includes: PROPHYLAXIS for venous thrombosis, systemic embolization; TREATMENT for venous thrombosis and/or pulmonary embolus.HIGH RISK: Target INR is2.5-3.5 for patients wiht mechanical heart valves.CBC W/PLT COUNT & AUTO [id number] 15:25:00 Test Item Value Reference Range Comments WHITE BLOOD CELL COUNT (BEAKER) (test ijds=790) 5.8 K/ L 3.5-10.5 RED BLOOD CELL COUNT (BEAKER) (test qicn=274) 3.30 M/ L 3.93-5.22 HEMOGLOBIN (BEAKER) (test hlyr=771) 8.9 GM/DL 11.2-15.7 HEMATOCRIT (BEAKER) (test takx=450) 28.2 % 34.1-44.9 MEAN CORPUSCULAR VOLUME (BEAKER) (test qmmp=832) 85.5 fL 79.4-94.8 MEAN CORPUSCULAR HEMOGLOBIN (BEAKER) (test 27.0 pg 25.6-32.2 ncet=258) MEAN CORPUSCULAR HEMOGLOBIN CONC (BEAKER) (test 31.6 GM/DL 32.2-35.5 jueg=590) RED CELL DISTRIBUTION WIDTH (BEAKER) (test 16.6 % 11.7-14.4 ebyb=576) PLATELET COUNT (BEAKER) (test gpom=501) 185 K/CU MM 150-450 MEAN PLATELET VOLUME (BEAKER) (test vcqf=891) 9.0 fL 9.4-12.3 NUCLEATED RED BLOOD CELLS (BEAKER) (test 0 /100 WBC 0-0 awie=515) NEUTROPHILS RELATIVE PERCENT (BEAKER) (test 50 % bltl=743) LYMPHOCYTES RELATIVE PERCENT (BEAKER) (test 32 % spup=387) MONOCYTES RELATIVE PERCENT (BEAKER) (test 7 % plbh=172) EOSINOPHILS RELATIVE PERCENT (BEAKER) (test 10 % zxzx=342) BASOPHILS RELATIVE PERCENT (BEAKER) (test 2 % zzjc=051) NEUTROPHILS ABSOLUTE COUNT (BEAKER) (test 2.88 K/ L 1.56-6.13 qodk=074) LYMPHOCYTES ABSOLUTE COUNT (BEAKER) (test 1.86 K/ L 1.18-3.74 lobp=130) MONOCYTES ABSOLUTE COUNT (BEAKER) (test 0.38 K/ L 0.24-0.36 xwcq=479) EOSINOPHILS ABSOLUTE COUNT (BEAKER) (test 0.55 K/ L 0.04-0.36 qlny=175) BASOPHILS ABSOLUTE COUNT (BEAKER) (test 0.10 K/ L 0.01-0.08 fdzv=444) IMMATURE GRANULOCYTES-RELATIVE PERCENT (BEAKER) 0 % 0-1 (test pzpa=7601) PROTHROMBIN [id number] 17:20:00 Test Item Value Reference Range Comments PROTIME (BEAKER) (test flpm=579) 13.6 seconds 11.9-14.2 INR (BEAKER) (test bguc=093) 1.1 <=5.9 Effective 04/01/2019: PT Reference Range ChangeNew: 11.9-14.2 Previous: 11.7- 14.7RECOMMENDED COUMADIN/WARFARIN INR THERAPY RANGESSTANDARD DOSE: 2.0-3.0 Includes: PROPHYLAXIS for venous thrombosis, systemic embolization; TREATMENT for venous thrombosis and/or pulmonary embolus.HIGH RISK: Target INR is2.5-3.5 for patients wiht mechanical heart valves.HEPATIC FUNCTION [id number] 17:16 :00 Test Item Value Reference Range Comments TOTAL PROTEIN (BEAKER) (test ixff=017) 6.7 gm/dL 6.0-8.3 ALBUMIN (BEAKER) (test bvid=9255) 3.0 g/dL 3.5-5.0 BILIRUBIN TOTAL (BEAKER) (test crnz=761) 1.4 mg/dL 0.2-1.2 BILIRUBIN DIRECT (BEAKER) (test aruz=189) 0.7 mg/dL 0.1-0.5 ALKALINE PHOSPHATASE (BEAKER) (test mwzd=464) 139 U/L 40-150 AST (SGOT) (BEAKER) (test xfnl=649) 32 U/L 5-34 ALT (SGPT) (BEAKER) (test idbi=665) 16 U/L 6-55 BASIC METABOLIC [id number] 17:16:00 Test Item Value Reference Range Comments SODIUM (BEAKER) (test 139 meq/L 136-145 eylw=328) POTASSIUM (BEAKER) (test 3.6 meq/L 3.5-5.1 wfvy=124) CHLORIDE (BEAKER) (test 99 meq/L 98-107 xcun=932) CO2 (BEAKER) (test 32 meq/L 22-29 zeap=356) BLOOD UREA NITROGEN 26 mg/dL 7-21 (BEAKER) (test iwab=271) CREATININE (BEAKER) (test 1.68 mg/dL 0.57-1.25 pxhk=805) GLUCOSE RANDOM (BEAKER) 263 mg/dL 70-105 (test dslc=562) CALCIUM (BEAKER) (test 9.0 mg/dL 8.4-10.2 usbt=409) EGFR (BEAKER) (test 31 mL/min/1.73 sq m ESTIMATED GFR IS NOT jwgd=0529) ACCURATE CREATININE CLEARANCE IN PREDICTING GLOMERULAR FILTRATION RATE. ESTIMATED GFR IS NOT APPLICABLE FOR DIALYSIS PATIENTS. CBC W/PLT COUNT & AUTO [id number] 17:01:00 Test Item Value Reference Range Comments WHITE BLOOD CELL COUNT (BEAKER) (test rysc=793) 7.4 K/ L 3.5-10.5 RED BLOOD CELL COUNT (BEAKER) (test tigy=082) 3.44 M/ L 3.93-5.22 HEMOGLOBIN (BEAKER) (test uofk=663) 9.6 GM/DL 11.2-15.7 HEMATOCRIT (BEAKER) (test hgpf=202) 30.1 % 34.1-44.9 MEAN CORPUSCULAR VOLUME (BEAKER) (test vmfm=629) 87.5 fL 79.4-94.8 MEAN CORPUSCULAR HEMOGLOBIN (BEAKER) (test 27.9 pg 25.6-32.2 irxt=582) MEAN CORPUSCULAR HEMOGLOBIN CONC (BEAKER) (test 31.9 GM/DL 32.2-35.5 fgre=094) RED CELL DISTRIBUTION WIDTH (BEAKER) (test 16.0 % 11.7-14.4 wcgj=060) PLATELET COUNT (BEAKER) (test ymto=039) 190 K/CU MM 150-450 MEAN PLATELET VOLUME (BEAKER) (test ohpm=247) 9.3 fL 9.4-12.3 NUCLEATED RED BLOOD CELLS (BEAKER) (test 0 /100 WBC 0-0 rflb=354) NEUTROPHILS RELATIVE PERCENT (BEAKER) (test 65 % xpzf=256) LYMPHOCYTES RELATIVE PERCENT (BEAKER) (test 23 % knjt=690) MONOCYTES RELATIVE PERCENT (BEAKER) (test 6 % ivqt=088) EOSINOPHILS RELATIVE PERCENT (BEAKER) (test 5 % lemz=995) BASOPHILS RELATIVE PERCENT (BEAKER) (test 1 % dvem=923) NEUTROPHILS ABSOLUTE COUNT (BEAKER) (test 4.83 K/ L 1.56-6.13 lrjx=673) LYMPHOCYTES ABSOLUTE COUNT (BEAKER) (test 1.67 K/ L 1.18-3.74 hffw=516) MONOCYTES ABSOLUTE COUNT (BEAKER) (test 0.41 K/ L 0.24-0.36 qxct=801) EOSINOPHILS ABSOLUTE COUNT (BEAKER) (test 0.40 K/ L 0.04-0.36 iyny=312) BASOPHILS ABSOLUTE COUNT (BEAKER) (test 0.06 K/ L 0.01-0.08 lxzv=850) IMMATURE GRANULOCYTES-RELATIVE PERCENT (BEAKER) 0 % 0-1 (test moos=8907) POCT-GLUCOSE [id number] 13:48:00 Test Item Value Reference Range Comments POC-GLUCOSE METER (BEAKER) 203 mg/dL 70-110 TESTED AT [facility] [address] [facility] (test qrea=2612) [facility] [address] POCT-GLUCOSE [id number] 09:45:00 Test Item Value Reference Range Comments POC-GLUCOSE METER (BEAKER) 168 mg/dL 70-110 TESTED AT [facility] [address] [facility] (test qhcc=2094) [facility] [address] POCT-GLUCOSE [id number] 08:06:00 Test Item Value Reference Range Comments POC-GLUCOSE METER (BEAKER) 177 mg/dL 70-110 TESTED AT [address] (test qiix=3278) [facility] [address] COMPREHENSIVE METABOLIC [id number] 06:11:00 Test Item Value Reference Range Comments TOTAL PROTEIN (BEAKER) 5.5 gm/dL 6.0-8.3 (test xzgu=583) ALBUMIN (BEAKER) (test 3.0 g/dL 3.5-5.0 bauv=9767) ALKALINE PHOSPHATASE 117 U/L 40-150 (BEAKER) (test bpnf=588) BILIRUBIN TOTAL (BEAKER) 1.2 mg/dL 0.2-1.2 (test trhs=568) SODIUM (BEAKER) (test 138 meq/L 136-145 zhro=672) POTASSIUM (BEAKER) (test 4.1 meq/L 3.5-5.1 ztju=795) CHLORIDE (BEAKER) (test 102 meq/L 98-107 ziia=573) CO2 (BEAKER) (test 29 meq/L 22-29 rzir=934) BLOOD UREA NITROGEN 23 mg/dL 7-21 (BEAKER) (test whsi=267) CREATININE (BEAKER) (test 1.26 mg/dL 0.57-1.25 blou=372) GLUCOSE RANDOM (BEAKER) 177 mg/dL 70-105 (test zxyv=077) CALCIUM (BEAKER) (test 8.3 mg/dL 8.4-10.2 ftvo=354) AST (SGOT) (BEAKER) (test 26 U/L 5-34 jcwt=551) ALT (SGPT) (BEAKER) (test 9 U/L 6-55 vrcl=711) EGFR (BEAKER) (test 43 mL/min/1.73 sq m ESTIMATED GFR IS NOT nqov=7518) ACCURATE CREATININE CLEARANCE IN PREDICTING GLOMERULAR FILTRATION RATE. ESTIMATED GFR IS NOT APPLICABLE FOR DIALYSIS PATIENTS. CBC (HEMOGRAM ONLY)2019-06-03 05:17:00 Test Item Value Reference Range Comments WHITE BLOOD CELL COUNT (BEAKER) (test gxdr=223) 6.0 K/ L 3.5-10.5 RED BLOOD CELL COUNT (BEAKER) (test cnoy=381) 2.95 M/ L 3.93-5.22 HEMOGLOBIN (BEAKER) (test pgme=596) 8.1 GM/DL 11.2-15.7 HEMATOCRIT (BEAKER) (test onys=048) 26.3 % 34.1-44.9 MEAN CORPUSCULAR VOLUME (BEAKER) (test uwio=147) 89.2 fL 79.4-94.8 MEAN CORPUSCULAR HEMOGLOBIN (BEAKER) (test 27.5 pg 25.6-32.2 lhkb=285) MEAN CORPUSCULAR HEMOGLOBIN CONC (BEAKER) (test 30.8 GM/DL 32.2-35.5 znsu=911) RED CELL DISTRIBUTION WIDTH (BEAKER) (test 17.3 % 11.7-14.4 obvx=395) PLATELET COUNT (BEAKER) (test ebye=396) 203 K/CU MM 150-450 MEAN PLATELET VOLUME (BEAKER) (test xtfo=851) 9.2 fL 9.4-12.3 NUCLEATED RED BLOOD CELLS (BEAKER) (test 0 /100 WBC 0-0 bjrs=451) POCT-GLUCOSE [id number] 23:37:00 Test Item Value Reference Range Comments POC-GLUCOSE METER (BEAKER) 212 mg/dL 70-110 TESTED AT [place] [id number] [facility] (test titb=0972) [facility] [address] POCT-GLUCOSE [id number] 16:58:00 Test Item Value Reference Range Comments POC-GLUCOSE METER (BEAKER) 313 mg/dL 70-110 TESTED AT [address] (test ndbd=3985) [facility] [address] ANG, TIPSS [id number] 14:25:00Reason for exam:->still recurrent paracentesisFINAL REPORT Procedures:1. [...] the patient's medical record by the nurse. Export Coordinator: Akil Chung MD. Folder And Notcher: MD Ishaan (Fellow) Approach: 1. Right lower [...] skin and deep soft tissues. A 5 Mauritanian one-step catheter wasinserted and removed from the [...] The needle was exchanged for a 4 Mauritanian micropuncture sheath. The micropuncture sheath was exchanged over a 0.035 Bentson wire for a 5 Mauritanian x 10 cm vascular sheath. The TIPS stent was then cannulated using a 5 Mauritanian C2 catheter and 0.035 angled Glidewire. The [...] 5 mmHg from 9 mmHg. Signed: Akil Chungeport Verified Date/Time: 06/02/2019 14:25:34 Reading Location : [place] [address] Angio Body Reading Room POCT-GLUCOSE [id number] 11:52:00 Test Item Value Reference Range Comments POC-GLUCOSE METER (BEAKER) 159 mg/dL 70-110 TESTED AT [facility] [address] [facility] (test jjku=3608) [facility] [address] [id number] 05:55:00 Test Item Value Reference Range Comments MAGNESIUM (BEAKER) (test geih=496) 1.6 mg/dL 1.6-2.6 COMPREHENSIVE METABOLIC [id number] 05:55:00 Test Item Value Reference Range Comments TOTAL PROTEIN (BEAKER) 5.7 gm/dL 6.0-8.3 (test wful=023) ALBUMIN (BEAKER) (test 3.3 g/dL 3.5-5.0 nnoo=1272) ALKALINE PHOSPHATASE 118 U/L 40-150 (BEAKER) (test jilo=335) BILIRUBIN TOTAL (BEAKER) 1.4 mg/dL 0.2-1.2 (test msxj=899) SODIUM (BEAKER) (test 140 meq/L 136-145 oorc=013) POTASSIUM (BEAKER) (test 3.3 meq/L 3.5-5.1 hjus=286) CHLORIDE (BEAKER) (test 101 meq/L 98-107 xilk=961) CO2 (BEAKER) (test 31 meq/L 22-29 ofmb=673) BLOOD UREA NITROGEN 23 mg/dL 7-21 (BEAKER) (test tqzm=320) CREATININE (BEAKER) (test 1.33 mg/dL 0.57-1.25 gdao=961) GLUCOSE RANDOM (BEAKER) 131 mg/dL 70-105 (test hekh=284) CALCIUM (BEAKER) (test 8.7 mg/dL 8.4-10.2 zalb=204) AST (SGOT) (BEAKER) (test 27 U/L 5-34 mgfl=574) ALT (SGPT) (BEAKER) (test 11 U/L 6-55 pokg=826) EGFR (BEAKER) (test 41 mL/min/1.73 sq m ESTIMATED GFR IS NOT gpgv=1106) ACCURATE CREATININE CLEARANCE IN PREDICTING GLOMERULAR FILTRATION RATE. ESTIMATED GFR IS NOT APPLICABLE FOR DIALYSIS PATIENTS. CBC W/PLT COUNT & AUTO [id number] 05:43:00 Test Item Value Reference Range Comments WHITE BLOOD CELL COUNT (BEAKER) (test ehnr=159) 6.0 K/ L 3.5-10.5 RED BLOOD CELL COUNT (BEAKER) (test nwzj=636) 2.97 M/ L 3.93-5.22 HEMOGLOBIN (BEAKER) (test aotx=933) 8.2 GM/DL 11.2-15.7 HEMATOCRIT (BEAKER) (test igym=846) 26.0 % 34.1-44.9 MEAN CORPUSCULAR VOLUME (BEAKER) (test jphp=375) 87.5 fL 79.4-94.8 MEAN CORPUSCULAR HEMOGLOBIN (BEAKER) (test 27.6 pg 25.6-32.2 kewi=242) MEAN CORPUSCULAR HEMOGLOBIN CONC (BEAKER) (test 31.5 GM/DL 32.2-35.5 gfhm=768) RED CELL DISTRIBUTION WIDTH (BEAKER) (test 17.7 % 11.7-14.4 cfeb=446) PLATELET COUNT (BEAKER) (test loda=926) 194 K/CU MM 150-450 MEAN PLATELET VOLUME (BEAKER) (test brol=359) 9.3 fL 9.4-12.3 NUCLEATED RED BLOOD CELLS (BEAKER) (test 0 /100 WBC 0-0 qdlo=337) NEUTROPHILS RELATIVE PERCENT (BEAKER) (test 48 % gnmw=617) LYMPHOCYTES RELATIVE PERCENT (BEAKER) (test 31 % kezl=130) MONOCYTES RELATIVE PERCENT (BEAKER) (test 10 % jowx=316) EOSINOPHILS RELATIVE PERCENT (BEAKER) (test 9 % erfn=144) BASOPHILS RELATIVE PERCENT (BEAKER) (test 1 % wkjg=271) NEUTROPHILS ABSOLUTE COUNT (BEAKER) (test 2.84 K/ L 1.56-6.13 lcqx=084) LYMPHOCYTES ABSOLUTE COUNT (BEAKER) (test 1.87 K/ L 1.18-3.74 ubfa=991) MONOCYTES ABSOLUTE COUNT (BEAKER) (test 0.60 K/ L 0.24-0.36 vdhg=375) EOSINOPHILS ABSOLUTE COUNT (BEAKER) (test 0.56 K/ L 0.04-0.36 lxas=850) BASOPHILS ABSOLUTE COUNT (BEAKER) (test 0.08 K/ L 0.01-0.08 pwfl=686) IMMATURE GRANULOCYTES-RELATIVE PERCENT (BEAKER) 0 % 0-1 (test xmbb=1223) [id number] 05:42:00 Test Item Value Reference Range Comments PHOSPHORUS (BEAKER) (test hlzv=512) 2.3 mg/dL 2.3-4.7 POCT-GLUCOSE [id number] 22:34:00 Test Item Value Reference Range Comments POC-GLUCOSE METER (BEAKER) 192 mg/dL 70-110 TESTED AT [address] (test msrt=7419) [place] [id number] POCT-GLUCOSE [id number] 17:01:00 Test Item Value Reference Range Comments POC-GLUCOSE METER (BEAKER) 250 mg/dL 70-110 TESTED AT [address] (test dwxp=3217) [place] [address] [id number] 07:42:00 Test Item Value Reference Range Comments MAGNESIUM (BEAKER) (test 1.6 mg/dL 1.6-2.6 Specimen slightly hemolyzed rxop=674) [id number] 07:42:00 Test Item Value Reference Range Comments PHOSPHORUS (BEAKER) (test 2.8 mg/dL 2.3-4.7 Specimen slightly hemolyzed zuay=021) COMPREHENSIVE METABOLIC [id number] 07:42:00 Test Item Value Reference Range Comments TOTAL PROTEIN (BEAKER) 5.5 gm/dL 6.0-8.3 Specimen slightly (test upkb=673) hemolyzed ALBUMIN (BEAKER) (test 2.9 g/dL 3.5-5.0 Specimen slightly rqti=7999) hemolyzed ALKALINE PHOSPHATASE 125 U/L 40-150 (BEAKER) (test stos=950) BILIRUBIN TOTAL (BEAKER) 1.1 mg/dL 0.2-1.2 Specimen slightly (test vlmy=676) hemolyzed SODIUM (BEAKER) (test 141 meq/L 136-145 fkrf=888) POTASSIUM (BEAKER) (test 3.6 meq/L 3.5-5.1 Specimen slightly oyku=912) hemolyzed CHLORIDE (BEAKER) (test 101 meq/L 98-107 mgjr=776) CO2 (BEAKER) (test 31 meq/L 22-29 kzcp=451) BLOOD UREA NITROGEN 23 mg/dL 7-21 (BEAKER) (test mijv=892) CREATININE (BEAKER) (test 1.50 mg/dL 0.57-1.25 Specimen slightly zrhm=675) hemolyzed GLUCOSE RANDOM (BEAKER) 153 mg/dL 70-105 (test lrmg=021) CALCIUM (BEAKER) (test 8.7 mg/dL 8.4-10.2 lszw=393) AST (SGOT) (BEAKER) (test 35 U/L 5-34 Specimen slightly fwrr=298) hemolyzed ALT (SGPT) (BEAKER) (test 12 U/L 6-55 Specimen slightly hobg=301) hemolyzed EGFR (BEAKER) (test 35 mL/min/1.73 sq m ESTIMATED GFR IS NOT jtea=1342) ACCURATE CREATININE CLEARANCE IN PREDICTING GLOMERULAR FILTRATION RATE. ESTIMATED GFR IS NOT APPLICABLE FOR DIALYSIS PATIENTS. POCT-GLUCOSE [id number] 07:38:00 Test Item Value Reference Range Comments POC-GLUCOSE METER (BEAKER) 154 mg/dL 70-110 TESTED AT [facility] [address] [facility] (test tqew=0455) [facility] [address] CBC W/PLT COUNT & AUTO [id number] 06:24:00 Test Item Value Reference Range Comments WHITE BLOOD CELL COUNT (BEAKER) (test zbup=884) 6.0 K/ L 3.5-10.5 RED BLOOD CELL COUNT (BEAKER) (test btqn=390) 3.09 M/ L 3.93-5.22 HEMOGLOBIN (BEAKER) (test pgaj=028) 8.5 GM/DL 11.2-15.7 HEMATOCRIT (BEAKER) (test kehc=316) 27.0 % 34.1-44.9 MEAN CORPUSCULAR VOLUME (BEAKER) (test ddsv=128) 87.4 fL 79.4-94.8 MEAN CORPUSCULAR HEMOGLOBIN (BEAKER) (test 27.5 pg 25.6-32.2 zbfg=730) MEAN CORPUSCULAR HEMOGLOBIN CONC (BEAKER) (test 31.5 GM/DL 32.2-35.5 llks=190) RED CELL DISTRIBUTION WIDTH (BEAKER) (test 17.7 % 11.7-14.4 jwus=298) PLATELET COUNT (BEAKER) (test pxrx=052) 196 K/CU MM 150-450 MEAN PLATELET VOLUME (BEAKER) (test rlqo=810) 8.9 fL 9.4-12.3 NUCLEATED RED BLOOD CELLS (BEAKER) (test 0 /100 WBC 0-0 zizs=442) NEUTROPHILS RELATIVE PERCENT (BEAKER) (test 44 % nxlk=137) LYMPHOCYTES RELATIVE PERCENT (BEAKER) (test 34 % huxu=282) MONOCYTES RELATIVE PERCENT (BEAKER) (test 11 % ipbq=718) EOSINOPHILS RELATIVE PERCENT (BEAKER) (test 9 % npoz=833) BASOPHILS RELATIVE PERCENT (BEAKER) (test 2 % djqg=056) NEUTROPHILS ABSOLUTE COUNT (BEAKER) (test 2.64 K/ L 1.56-6.13 zsze=341) LYMPHOCYTES ABSOLUTE COUNT (BEAKER) (test 2.03 K/ L 1.18-3.74 mbwy=246) MONOCYTES ABSOLUTE COUNT (BEAKER) (test 0.64 K/ L 0.24-0.36 dxhp=685) EOSINOPHILS ABSOLUTE COUNT (BEAKER) (test 0.54 K/ L 0.04-0.36 sghp=028) BASOPHILS ABSOLUTE COUNT (BEAKER) (test 0.09 K/ L 0.01-0.08 ndmc=654) IMMATURE GRANULOCYTES-RELATIVE PERCENT (BEAKER) 0 % 0-1 (test qren=2410) CALCIUM, [id number] 05:35:00 Test Item Value Reference Range Comments CALCIUM IONIZED (BEAKER) (test wktg=944) 0.99 mmol/L 1.12-1.27 PH, BLOOD (BEAKER) (test gcju=1279) 7.50 POCT-GLUCOSE [id number] 22:12:00 Test Item Value Reference Range Comments POC-GLUCOSE METER (BEAKER) 246 mg/dL 70-110 TESTED AT [address] (test dzqb=6120) [facility] [address] POCT-GLUCOSE [id number] 17:11:00 Test Item Value Reference Range Comments POC-GLUCOSE METER (BEAKER) 201 mg/dL 70-110 TESTED AT [facility] [address] [facility] (test bvvk=5232) [facility] [address] POCT-GLUCOSE [id number] 13:24:00 Test Item Value Reference Range Comments POC-GLUCOSE METER (BEAKER) 173 mg/dL 70-110 TESTED AT [place] [id number] [facility] (test htbt=5367) [facility] [address] COMPREHENSIVE METABOLIC [id number] 09:06:00 Test Item Value Reference Range Comments TOTAL PROTEIN (BEAKER) 5.8 gm/dL 6.0-8.3 (test heui=017) ALBUMIN (BEAKER) (test 3.2 g/dL 3.5-5.0 kivd=7781) ALKALINE PHOSPHATASE 125 U/L 40-150 (BEAKER) (test iizc=145) BILIRUBIN TOTAL (BEAKER) 1.6 mg/dL 0.2-1.2 (test hzsx=568) SODIUM (BEAKER) (test 140 meq/L 136-145 ogua=101) POTASSIUM (BEAKER) (test 3.4 meq/L 3.5-5.1 uzep=793) CHLORIDE (BEAKER) (test 100 meq/L 98-107 libv=866) CO2 (BEAKER) (test 31 meq/L 22-29 bpnd=268) BLOOD UREA NITROGEN 21 mg/dL 7-21 (BEAKER) (test yoyj=036) CREATININE (BEAKER) (test 1.57 mg/dL 0.57-1.25 rckt=080) GLUCOSE RANDOM (BEAKER) 138 mg/dL 70-105 (test uhzt=355) CALCIUM (BEAKER) (test 8.9 mg/dL 8.4-10.2 looi=215) AST (SGOT) (BEAKER) (test 33 U/L 5-34 sugy=944) ALT (SGPT) (BEAKER) (test 13 U/L 6-55 xtzf=455) EGFR (BEAKER) (test 33 mL/min/1.73 sq m ESTIMATED GFR IS NOT spts=1601) ACCURATE CREATININE CLEARANCE IN PREDICTING GLOMERULAR FILTRATION RATE. ESTIMATED GFR IS NOT APPLICABLE FOR DIALYSIS PATIENTS. Specimen slightly ictericPOCT-GLUCOSE [id number] 07:53:00 Test Item Value Reference Range Comments POC-GLUCOSE METER (BEAKER) 157 mg/dL 70-110 TESTED AT [address] (test wdps=6693) [facility] [address] CBC (HEMOGRAM ONLY)2019-05-31 06:33:00 Test Item Value Reference Range Comments WHITE BLOOD CELL COUNT (BEAKER) (test pqea=589) 5.7 K/ L 3.5-10.5 RED BLOOD CELL COUNT (BEAKER) (test unef=490) 3.25 M/ L 3.93-5.22 HEMOGLOBIN (BEAKER) (test waex=561) 8.9 GM/DL 11.2-15.7 HEMATOCRIT (BEAKER) (test wizc=151) 28.3 % 34.1-44.9 MEAN CORPUSCULAR VOLUME (BEAKER) (test ottz=162) 87.1 fL 79.4-94.8 MEAN CORPUSCULAR HEMOGLOBIN (BEAKER) (test 27.4 pg 25.6-32.2 cmkr=099) MEAN CORPUSCULAR HEMOGLOBIN CONC (BEAKER) (test 31.4 GM/DL 32.2-35.5 cgeg=574) RED CELL DISTRIBUTION WIDTH (BEAKER) (test 17.5 % 11.7-14.4 mqiz=030) PLATELET COUNT (BEAKER) (test dyrv=192) 188 K/CU MM 150-450 MEAN PLATELET VOLUME (BEAKER) (test mncn=769) 9.1 fL 9.4-12.3 NUCLEATED RED BLOOD CELLS (BEAKER) (test 0 /100 WBC 0-0 uhyd=870) POCT-GLUCOSE [id number] 22:28:00 Test Item Value Reference Range Comments POC-GLUCOSE METER (BEAKER) 193 mg/dL 70-110 TESTED AT [address] (test lobb=3995) [facility] [address] POCT-GLUCOSE [id number] 17:19:00 Test Item Value Reference Range Comments POC-GLUCOSE METER (BEAKER) 155 mg/dL 70-110 TESTED AT [address] (test gmyb=6255) [facility] [address] POCT-GLUCOSE [id number] 12:44:00 Test Item Value Reference Range Comments POC-GLUCOSE METER (BEAKER) 189 mg/dL 70-110 TESTED AT [facility] [address] [facility] (test vaea=8024) [facility] [address] POCT-GLUCOSE [id number] 08:30:00 Test Item Value Reference Range Comments POC-GLUCOSE METER (BEAKER) 140 mg/dL 70-110 TESTED AT [facility] [address] [facility] (test mwke=0798) [facility] [address] [id number] 05:15:00 Test Item Value Reference Range Comments THYROID STIMULATING HORMONE (BEAKER) (test 6.32 uIU/mL 0.35-4.94 vlqt=245) T4, [id number] 05:11:00 Test Item Value Reference Range Comments FREE T4 (BEAKER) (test fgin=794) 1.70 ng/dL 0.70-1.48 [id number] 04:53:00 Test Item Value Reference Range Comments PHOSPHORUS (BEAKER) (test wkcl=684) 2.4 mg/dL 2.3-4.7 [id number] 04:53:00 Test Item Value Reference Range Comments MAGNESIUM (BEAKER) (test dbru=918) 1.8 mg/dL 1.6-2.6 COMPREHENSIVE METABOLIC [id number] 04:53:00 Test Item Value Reference Range Comments TOTAL PROTEIN (BEAKER) 5.1 gm/dL 6.0-8.3 (test eind=779) ALBUMIN (BEAKER) (test 2.9 g/dL 3.5-5.0 bstt=6645) ALKALINE PHOSPHATASE 101 U/L 40-150 (BEAKER) (test qjdw=165) BILIRUBIN TOTAL (BEAKER) 1.6 mg/dL 0.2-1.2 (test xvor=727) SODIUM (BEAKER) (test 137 meq/L 136-145 qpph=433) POTASSIUM (BEAKER) (test 3.7 meq/L 3.5-5.1 dayy=485) CHLORIDE (BEAKER) (test 99 meq/L 98-107 nscx=409) CO2 (BEAKER) (test 32 meq/L 22-29 hhuo=612) BLOOD UREA NITROGEN 20 mg/dL 7-21 (BEAKER) (test tmsb=878) CREATININE (BEAKER) (test 1.55 mg/dL 0.57-1.25 bvxa=692) GLUCOSE RANDOM (BEAKER) 157 mg/dL 70-105 (test klku=330) CALCIUM (BEAKER) (test 8.3 mg/dL 8.4-10.2 fmjl=835) AST (SGOT) (BEAKER) (test 33 U/L 5-34 nrhu=033) ALT (SGPT) (BEAKER) (test 12 U/L 6-55 cehd=473) EGFR (BEAKER) (test 34 mL/min/1.73 sq m ESTIMATED GFR IS NOT syhe=8159) ACCURATE CREATININE CLEARANCE IN PREDICTING GLOMERULAR FILTRATION RATE. ESTIMATED GFR IS NOT APPLICABLE FOR DIALYSIS PATIENTS. CBC (HEMOGRAM ONLY)2019-05-30 04:13:00 Test Item Value Reference Range Comments WHITE BLOOD CELL COUNT (BEAKER) (test vfml=909) 5.3 K/ L 3.5-10.5 RED BLOOD CELL COUNT (BEAKER) (test ixon=794) 2.75 M/ L 3.93-5.22 HEMOGLOBIN (BEAKER) (test qcru=806) 7.6 GM/DL 11.2-15.7 HEMATOCRIT (BEAKER) (test yrbz=697) 24.2 % 34.1-44.9 MEAN CORPUSCULAR VOLUME (BEAKER) (test juzg=154) 88.0 fL 79.4-94.8 MEAN CORPUSCULAR HEMOGLOBIN (BEAKER) (test 27.6 pg 25.6-32.2 aube=805) MEAN CORPUSCULAR HEMOGLOBIN CONC (BEAKER) (test 31.4 GM/DL 32.2-35.5 jusy=483) RED CELL DISTRIBUTION WIDTH (BEAKER) (test 17.4 % 11.7-14.4 vxet=769) PLATELET COUNT (BEAKER) (test toto=660) 162 K/CU MM 150-450 MEAN PLATELET VOLUME (BEAKER) (test xhza=739) 9.2 fL 9.4-12.3 NUCLEATED RED BLOOD CELLS (BEAKER) (test 0 /100 WBC 0-0 zeuj=341) CALCIUM, [id number] 04:13:00 Test Item Value Reference Range Comments CALCIUM IONIZED (BEAKER) (test hjvh=490) 0.98 mmol/L 1.12-1.27 PH, BLOOD (BEAKER) (test rmpa=9781) 7.58 RAD, CHEST, 2 [id number] 23:47:00Reason for exam:->opacitiesFINAL REPORT Portable chest. HISTORY: [...] MDReport Verified Date/Time: 05/29/2019 23:47:08 Reading Location: [address] Consult Reading Room POCT-GLUCOSE [id number] 23:12:00 Test Item Value Reference Range Comments POC-GLUCOSE METER (BEAKER) 192 mg/dL 70-110 TESTED AT [address] (test dhnj=5186) [facility] [address] URINALYSIS W/ [id number] 18:14:00 Test Item Value Reference Range Comments COLOR (BEAKER) (test argt=640) Yellow CLARITY (BEAKER) (test waxe=696) Clear SPECIFIC GRAVITY UA (BEAKER) (test 1.011 1.001-1.035 xhhk=209) PH UA (BEAKER) (test knxl=329) 8.5 5.0-8.0 PROTEIN UA (BEAKER) (test klot=354) 20 mg/dL Negative GLUCOSE UA (BEAKER) (test nwex=852) Negative Negative KETONES UA (BEAKER) (test affn=620) Negative Negative BILIRUBIN UA (BEAKER) (test cdhj=596) Negative Negative BLOOD UA (BEAKER) (test flzy=240) Negative Negative NITRITE UA (BEAKER) (test pzmw=829) Negative Negative LEUKOCYTE ESTERASE UA (BEAKER) (test Negative Negative nvif=985) UROBILINOGEN UA (BEAKER) (test buma=883) 12.0 mg/dL 0.2-1.0 RBC UA (BEAKER) (test hvhu=297) < /HPF WBC UA (BEAKER) (test qdik=963) 1 /HPF BACTERIA (BEAKER) (test mtie=412) Rare SQUAMOUS EPITHELIAL (BEAKER) (test 3 /HPF dpsa=276) SOURCE(BEAKER) (test eoad=6490) Urine, Clean Catch POCT-GLUCOSE [id number] 16:55:00 Test Item Value Reference Range Comments POC-GLUCOSE METER (BEAKER) 186 mg/dL 70-110 TESTED AT [address] (test qlzz=5791) [facility] [address] TISSUE [id number] 15:15:00Surgical Pathology Report Case: [id number] Authorizing Provider: Shannen Giron MD Collected: 05/28/2019 1448 Ordering Location: [address] Received: 05/29/2019 0915 Service Pathologist: Padilla Reed MD Specimen: Polyp, Colon - Right/Ascending, taken by doug pathak PART A RIGHT ASCENDING COLON POLYP, POLYPECTOMY:TUBULAR ADENOMA. Signing Pathologist Direct Phone Line: [phone] signed by Padilla Reed MD on 05/29/2019 at 3:15 [id number] colonoscopyRight ascending colonReceived in formalin, labelled with the patients name, date of , and medical record number and labelled "right ascending colon polyp" are three portions of silva tissue measuring 0.5 x 0.4 x 0.3 cm in aggregate. Submitted in toto in one cassette. Performed.BODY FLUID CULTURE + GRAM [id number] 12:56:00 Test Item Value Reference Range Comments CULTURE (BEAKER) (test rmud=4052) No growth GRAM STAIN RESULT (BEAKER) (test No WBCs lpzy=6513) GRAM STAIN RESULT (BEAKER) (test No organisms seen hrfu=07622) POCT-GLUCOSE [id number] 12:37:00 Test Item Value Reference Range Comments POC-GLUCOSE METER (BEAKER) 154 mg/dL 70-110 TESTED AT [address] (test kvej=3907) [place] [id number] POCT-GLUCOSE [id number] 09:12:00 Test Item Value Reference Range Comments POC-GLUCOSE METER (BEAKER) 76 mg/dL 70-110 TESTED AT [address] (test rbbu=3701) [facility] [address] COMPREHENSIVE METABOLIC [id number] 08:19:00 Test Item Value Reference Range Comments TOTAL PROTEIN (BEAKER) 4.9 gm/dL 6.0-8.3 (test shni=918) ALBUMIN (BEAKER) (test 3.0 g/dL 3.5-5.0 zthw=3733) ALKALINE PHOSPHATASE 88 U/L 40-150 (BEAKER) (test tvdd=065) BILIRUBIN TOTAL (BEAKER) 1.9 mg/dL 0.2-1.2 (test fbpg=250) SODIUM (BEAKER) (test 141 meq/L 136-145 xonx=392) POTASSIUM (BEAKER) (test 3.5 meq/L 3.5-5.1 gjuh=875) CHLORIDE (BEAKER) (test 100 meq/L 98-107 jadd=428) CO2 (BEAKER) (test 34 meq/L 22-29 thmj=366) BLOOD UREA NITROGEN 18 mg/dL 7-21 (BEAKER) (test qqqe=013) CREATININE (BEAKER) (test 1.50 mg/dL 0.57-1.25 biya=539) GLUCOSE RANDOM (BEAKER) 92 mg/dL 70-105 (test cldi=174) CALCIUM (BEAKER) (test 8.5 mg/dL 8.4-10.2 jkcd=926) AST (SGOT) (BEAKER) (test 27 U/L 5-34 legm=199) ALT (SGPT) (BEAKER) (test 10 U/L 6-55 rcbl=312) EGFR (BEAKER) (test 35 mL/min/1.73 sq m ESTIMATED GFR IS NOT bywz=9947) ACCURATE CREATININE CLEARANCE IN PREDICTING GLOMERULAR FILTRATION RATE. ESTIMATED GFR IS NOT APPLICABLE FOR DIALYSIS PATIENTS. Specimen slightly [id number] 08:18:00 Test Item Value Reference Range Comments PHOSPHORUS (BEAKER) (test xdnu=704) 2.8 mg/dL 2.3-4.7 [id number] 08:18:00 Test Item Value Reference Range Comments MAGNESIUM (BEAKER) (test yirk=661) 2.0 mg/dL 1.6-2.6 CBC W/PLT COUNT & AUTO [id number] 05:59:00 Test Item Value Reference Range Comments WHITE BLOOD CELL COUNT (BEAKER) (test ujiv=483) 5.3 K/ L 3.5-10.5 RED BLOOD CELL COUNT (BEAKER) (test ictz=397) 2.79 M/ L 3.93-5.22 HEMOGLOBIN (BEAKER) (test pknl=879) 7.7 GM/DL 11.2-15.7 HEMATOCRIT (BEAKER) (test cnfr=974) 24.8 % 34.1-44.9 MEAN CORPUSCULAR VOLUME (BEAKER) (test cczd=883) 88.9 fL 79.4-94.8 MEAN CORPUSCULAR HEMOGLOBIN (BEAKER) (test 27.6 pg 25.6-32.2 xpjn=642) MEAN CORPUSCULAR HEMOGLOBIN CONC (BEAKER) (test 31.0 GM/DL 32.2-35.5 ggrw=104) RED CELL DISTRIBUTION WIDTH (BEAKER) (test 17.6 % 11.7-14.4 gxib=693) PLATELET COUNT (BEAKER) (test afas=722) 146 K/CU MM 150-450 MEAN PLATELET VOLUME (BEAKER) (test avim=111) 9.6 fL 9.4-12.3 NUCLEATED RED BLOOD CELLS (BEAKER) (test 0 /100 WBC 0-0 yovq=235) NEUTROPHILS RELATIVE PERCENT (BEAKER) (test 46 % wmrc=056) LYMPHOCYTES RELATIVE PERCENT (BEAKER) (test 31 % mpyo=419) MONOCYTES RELATIVE PERCENT (BEAKER) (test 11 % bqsm=718) EOSINOPHILS RELATIVE PERCENT (BEAKER) (test 10 % zvjc=319) BASOPHILS RELATIVE PERCENT (BEAKER) (test 2 % wylf=592) NEUTROPHILS ABSOLUTE COUNT (BEAKER) (test 2.46 K/ L 1.56-6.13 gbjh=651) LYMPHOCYTES ABSOLUTE COUNT (BEAKER) (test 1.66 K/ L 1.18-3.74 lcwb=061) MONOCYTES ABSOLUTE COUNT (BEAKER) (test 0.57 K/ L 0.24-0.36 pswe=036) EOSINOPHILS ABSOLUTE COUNT (BEAKER) (test 0.52 K/ L 0.04-0.36 ldxe=964) BASOPHILS ABSOLUTE COUNT (BEAKER) (test 0.08 K/ L 0.01-0.08 xlra=992) IMMATURE GRANULOCYTES-RELATIVE PERCENT (BEAKER) 0 % 0-1 (test emfr=1085) CALCIUM, [id number] 05:04:00 Test Item Value Reference Range Comments CALCIUM IONIZED (BEAKER) (test eqbp=197) 1.02 mmol/L 1.12-1.27 PH, BLOOD (BEAKER) (test mqzo=2578) 7.50 POCT-GLUCOSE [id number] 21:27:00 Test Item Value Reference Range Comments POC-GLUCOSE METER (BEAKER) 139 mg/dL 70-110 TESTED AT [address] (test lwkw=8971) [place] [address] BASIC METABOLIC [id number] 18:28:00 Test Item Value Reference Range Comments SODIUM (BEAKER) (test 142 meq/L 136-145 eohz=830) POTASSIUM (BEAKER) (test 3.5 meq/L 3.5-5.1 ovmq=495) CHLORIDE (BEAKER) (test 99 meq/L 98-107 tyiq=125) CO2 (BEAKER) (test 37 meq/L 22-29 hijr=276) BLOOD UREA NITROGEN 17 mg/dL 7-21 (BEAKER) (test xgat=663) CREATININE (BEAKER) (test 1.38 mg/dL 0.57-1.25 uczk=139) GLUCOSE RANDOM (BEAKER) 78 mg/dL 70-105 (test kmjq=996) CALCIUM (BEAKER) (test 8.5 mg/dL 8.4-10.2 bqzu=980) EGFR (BEAKER) (test 39 mL/min/1.73 sq m ESTIMATED GFR IS NOT fqua=7879) ACCURATE CREATININE CLEARANCE IN PREDICTING GLOMERULAR FILTRATION RATE. ESTIMATED GFR IS NOT APPLICABLE FOR DIALYSIS PATIENTS. Call [id number] with resultsSpecimen slightly ictericPOCT-GLUCOSE [id number] 18:10:00 Test Item Value Reference Range Comments POC-GLUCOSE METER (BEAKER) 82 mg/dL 70-110 TESTED AT [address] (test vbdx=8452) [place] [id number] CBC W/PLT COUNT & AUTO [id number] 11:56:00 Test Item Value Reference Range Comments WHITE BLOOD CELL COUNT (BEAKER) (test wbce=196) 5.0 K/ L 3.5-10.5 RED BLOOD CELL COUNT (BEAKER) (test budv=946) 2.82 M/ L 3.93-5.22 HEMOGLOBIN (BEAKER) (test qawm=318) 7.9 GM/DL 11.2-15.7 HEMATOCRIT (BEAKER) (test ibqu=370) 25.0 % 34.1-44.9 MEAN CORPUSCULAR VOLUME (BEAKER) (test hwjx=872) 88.7 fL 79.4-94.8 MEAN CORPUSCULAR HEMOGLOBIN (BEAKER) (test 28.0 pg 25.6-32.2 nvad=361) MEAN CORPUSCULAR HEMOGLOBIN CONC (BEAKER) (test 31.6 GM/DL 32.2-35.5 escm=720) RED CELL DISTRIBUTION WIDTH (BEAKER) (test 17.6 % 11.7-14.4 diih=806) PLATELET COUNT (BEAKER) (test wfuj=556) 155 K/CU MM 150-450 MEAN PLATELET VOLUME (BEAKER) (test vqrl=176) 9.5 fL 9.4-12.3 NUCLEATED RED BLOOD CELLS (BEAKER) (test 0 /100 WBC 0-0 pkfz=446) (CELLAVISION MANUAL DIFF)2019-05-28 11:56:00 Test Item Value Reference Range Comments NEUTROPHILS - REL (CELLAVISION)(BEAKER) (test 69 % rfrx=8500) LYMPHOCYTES - REL (CELLAVISION)(BEAKER) (test 21 % wjkq=2561) MONOCYTES - REL (CELLAVISION)(BEAKER) (test 3 % ueak=1713) EOSINOPHILS - REL (CELLAVISION)(BEAKER) (test 5 % yivi=7768) BASOPHILS - REL (CELLAVISION)(BEAKER) (test 1 % fwud=0415) MYELOCYTES - REL (CELLAVISION)(BEAKER) (test 1 % 0-0 nfev=0343) NEUTROPHILS - ABS (CELLAVISION)(BEAKER) (test 3.45 K/ul 1.56-6.13 rhkx=8357) LYMPHOCYTES - ABS (CELLAVISION)(BEAKER) (test 1.05 K/ul 1.18-3.74 fzry=6399) MONOCYTES - ABS (CELLAVISION)(BEAKER) (test 0.15 K/uL 0.24-0.36 invx=3180) EOSINOPHILS - ABS (CELLAVISION)(BEAKER) (test 0.25 K/uL 0.04-0.36 dhmr=6123) BASOPHILS - ABS (CELLAVISION)(BEAKER) (test 0.05 K/uL 0.01-0.08 gzry=4439) MYELOCYTES-ABS (CELLAVISION)(BEAKER) (test 0.05 K/uL 0.00-0.00 bulr=4967) TOTAL COUNTED (BEAKER) (test niet=0025) 100 PLT MORPHOLOGY (BEAKER) (test acko=340) Normal SMUDGE CELLS (BEAKER) (test cyha=0485) Present POLYCHROMATOPHILLIC RBCS(BEAKER) (test xfof=976) 1+ few ANISOCYTOSIS (BEAKER) (test fprs=076) 2+ moderate MICROCYTES (BEAKER) (test lhlj=007) 2+ moderate POIKILOCYTES (BEAKER) (test jziu=274) 1+ few SPHEROCYTES (BEAKER) (test vqrr=745) 1+ few PLATELET CONCENTRATION (CELLAVISION)(BEAKER) Adequate (test qgig=9085) Received comment: User comments: Slide comments:POCT-GLUCOSE [id number] 10: 05:00 Test Item Value Reference Range Comments POC-GLUCOSE METER (BEAKER) 82 mg/dL 70-110 TESTED AT [address] (test zxxw=8745) [facility] [address] POCT-GLUCOSE [id number] 09:07:00 Test Item Value Reference Range Comments POC-GLUCOSE METER (BEAKER) 84 mg/dL 70-110 TESTED AT [address] (test ujms=7127) [facility] [address] [id number] 06:31:00 Test Item Value Reference Range Comments PHOSPHORUS (BEAKER) (test kewt=889) 2.5 mg/dL 2.3-4.7 [id number] 06:31:00 Test Item Value Reference Range Comments MAGNESIUM (BEAKER) (test dpgb=517) 1.7 mg/dL 1.6-2.6 COMPREHENSIVE METABOLIC [id number] 06:31:00 Test Item Value Reference Range Comments TOTAL PROTEIN (BEAKER) 4.9 gm/dL 6.0-8.3 (test jina=390) ALBUMIN (BEAKER) (test 3.1 g/dL 3.5-5.0 rrfu=0254) ALKALINE PHOSPHATASE 82 U/L 40-150 (BEAKER) (test qelt=028) BILIRUBIN TOTAL (BEAKER) 2.3 mg/dL 0.2-1.2 (test nvua=934) SODIUM (BEAKER) (test 143 meq/L 136-145 bgqi=882) POTASSIUM (BEAKER) (test 3.5 meq/L 3.5-5.1 qzga=960) CHLORIDE (BEAKER) (test 100 meq/L 98-107 rqmp=451) CO2 (BEAKER) (test 37 meq/L 22-29 rksg=333) BLOOD UREA NITROGEN 16 mg/dL 7-21 (BEAKER) (test lntz=021) CREATININE (BEAKER) (test 1.37 mg/dL 0.57-1.25 gmew=801) GLUCOSE RANDOM (BEAKER) 96 mg/dL 70-105 (test remt=565) CALCIUM (BEAKER) (test 8.6 mg/dL 8.4-10.2 ibff=104) AST (SGOT) (BEAKER) (test 30 U/L 5-34 obrc=020) ALT (SGPT) (BEAKER) (test 10 U/L 6-55 bcen=874) EGFR (BEAKER) (test 39 mL/min/1.73 sq m ESTIMATED GFR IS NOT ubhy=8202) ACCURATE CREATININE CLEARANCE IN PREDICTING GLOMERULAR FILTRATION RATE. ESTIMATED GFR IS NOT APPLICABLE FOR DIALYSIS PATIENTS. Specimen slightly ictericB-TYPE NATRIURETIC FACTOR (BNP)2019-05-28 06:19:00 Test Item Value Reference Range Comments B-TYPE NATRIURETIC PEPTIDE (BEAKER) (test 381 pg/mL 0-100 pfdh=180) CALCIUM, [id number] 05:25:00 Test Item Value Reference Range Comments CALCIUM IONIZED (BEAKER) (test pipo=462) 1.03 mmol/L 1.12-1.27 PH, BLOOD (BEAKER) (test zzyh=2982) 7.49 POCT-GLUCOSE [id number] 22:42:00 Test Item Value Reference Range Comments POC-GLUCOSE METER (BEAKER) 174 mg/dL 70-110 TESTED AT [address] (test cnoo=6118) [facility] [address] [id number] 17:57:00 Test Item Value Reference Range Comments SODIUM (BEAKER) (test gfum=537) 140 meq/L 136-145 POTASSIUM (BEAKER) (test 3.9 meq/L 3.5-5.1 Specimen slightly hemolyzed jwhr=864) CHLORIDE (BEAKER) (test 99 meq/L 98-107 pxzr=110) CO2 (BEAKER) (test beog=684) 35 meq/L 22-29 Call [id number] 17:50:00 Test Item Value Reference Range Comments POC-GLUCOSE METER (BEAKER) 151 mg/dL 70-110 TESTED AT [address] (test qynz=1002) [place] [id number] POCT-GLUCOSE [id number] 12:36:00 Test Item Value Reference Range Comments POC-GLUCOSE METER (BEAKER) 123 mg/dL 70-110 TESTED AT [address] (test ucxk=6439) [place] [id number] POCT-GLUCOSE [id number] 08:15:00 Test Item Value Reference Range Comments POC-GLUCOSE METER (BEAKER) 121 mg/dL 70-110 TESTED AT [address] (test pupz=0669) [place] [id number] 07:00:00 Test Item Value Reference Range Comments PHOSPHORUS (BEAKER) (test munl=721) 1.9 mg/dL 2.3-4.7 [id number] 07:00:00 Test Item Value Reference Range Comments MAGNESIUM (BEAKER) (test rbkm=942) 1.6 mg/dL 1.6-2.6 COMPREHENSIVE METABOLIC [id number] 07:00:00 Test Item Value Reference Range Comments TOTAL PROTEIN (BEAKER) 4.9 gm/dL 6.0-8.3 (test yxct=673) ALBUMIN (BEAKER) (test 3.1 g/dL 3.5-5.0 wies=7274) ALKALINE PHOSPHATASE 75 U/L 40-150 (BEAKER) (test tpui=255) BILIRUBIN TOTAL (BEAKER) 1.9 mg/dL 0.2-1.2 (test jvbp=145) SODIUM (BEAKER) (test 139 meq/L 136-145 jylo=042) POTASSIUM (BEAKER) (test 4.3 meq/L 3.5-5.1 mmib=676) CHLORIDE (BEAKER) (test 99 meq/L 98-107 unyi=569) CO2 (BEAKER) (test 37 meq/L 22-29 jkkm=005) BLOOD UREA NITROGEN 16 mg/dL 7-21 (BEAKER) (test icpq=160) CREATININE (BEAKER) (test 1.29 mg/dL 0.57-1.25 cqdr=821) GLUCOSE RANDOM (BEAKER) 139 mg/dL 70-105 (test nfag=716) CALCIUM (BEAKER) (test 8.5 mg/dL 8.4-10.2 ewai=700) AST (SGOT) (BEAKER) (test 23 U/L 5-34 adhk=050) ALT (SGPT) (BEAKER) (test 8 U/L 6-55 rqgk=056) EGFR (BEAKER) (test 42 mL/min/1.73 sq m ESTIMATED GFR IS NOT umni=5571) ACCURATE CREATININE CLEARANCE IN PREDICTING GLOMERULAR FILTRATION RATE. ESTIMATED GFR IS NOT APPLICABLE FOR DIALYSIS PATIENTS. Specimen slightly ictericCBC W/PLT COUNT & AUTO [id number] 06:20 :00 Test Item Value Reference Range Comments WHITE BLOOD CELL COUNT (BEAKER) (test reyg=808) 4.7 K/ L 3.5-10.5 RED BLOOD CELL COUNT (BEAKER) (test bnjo=215) 2.71 M/ L 3.93-5.22 HEMOGLOBIN (BEAKER) (test suco=008) 7.5 GM/DL 11.2-15.7 HEMATOCRIT (BEAKER) (test kzhi=823) 23.9 % 34.1-44.9 MEAN CORPUSCULAR VOLUME (BEAKER) (test vfkk=379) 88.2 fL 79.4-94.8 MEAN CORPUSCULAR HEMOGLOBIN (BEAKER) (test 27.7 pg 25.6-32.2 phga=674) MEAN CORPUSCULAR HEMOGLOBIN CONC (BEAKER) (test 31.4 GM/DL 32.2-35.5 aufg=417) RED CELL DISTRIBUTION WIDTH (BEAKER) (test 17.6 % 11.7-14.4 ygrr=019) PLATELET COUNT (BEAKER) (test vahq=257) 137 K/CU MM 150-450 MEAN PLATELET VOLUME (BEAKER) (test efwa=241) 9.6 fL 9.4-12.3 NUCLEATED RED BLOOD CELLS (BEAKER) (test 0 /100 WBC 0-0 vmev=673) NEUTROPHILS RELATIVE PERCENT (BEAKER) (test 45 % ynyr=016) LYMPHOCYTES RELATIVE PERCENT (BEAKER) (test 33 % yigg=433) MONOCYTES RELATIVE PERCENT (BEAKER) (test 12 % iwev=266) EOSINOPHILS RELATIVE PERCENT (BEAKER) (test 9 % xjbm=734) BASOPHILS RELATIVE PERCENT (BEAKER) (test 1 % wciy=791) NEUTROPHILS ABSOLUTE COUNT (BEAKER) (test 2.13 K/ L 1.56-6.13 jeip=940) LYMPHOCYTES ABSOLUTE COUNT (BEAKER) (test 1.56 K/ L 1.18-3.74 eumq=338) MONOCYTES ABSOLUTE COUNT (BEAKER) (test 0.57 K/ L 0.24-0.36 pmeg=421) EOSINOPHILS ABSOLUTE COUNT (BEAKER) (test 0.41 K/ L 0.04-0.36 nfhr=816) BASOPHILS ABSOLUTE COUNT (BEAKER) (test 0.05 K/ L 0.01-0.08 dpek=314) IMMATURE GRANULOCYTES-RELATIVE PERCENT (BEAKER) 0 % 0-1 (test ybtz=8306) CALCIUM, [id number] 05:29:00 Test Item Value Reference Range Comments CALCIUM IONIZED (BEAKER) (test phyw=070) 1.02 mmol/L 1.12-1.27 PH, BLOOD (BEAKER) (test tfnm=3011) 7.53 POCT-GLUCOSE [id number] 22:13:00 Test Item Value Reference Range Comments POC-GLUCOSE METER (BEAKER) 315 mg/dL 70-110 Notified ALEXI ENNIS/TESTED AT [facility] (test fhsn=8425) [address] [facility] [address] POCT-GLUCOSE [id number] 18:43:00 Test Item Value Reference Range Comments POC-GLUCOSE METER (BEAKER) 204 mg/dL 70-110 TESTED AT [address] (test jwge=8964) [facility] [address] U/S, [id number] 17:14:00Reason for exam:->ascitesFINAL REPORT Ultrasound guided paracentesis. Clinical History: Ascites. Sedation: None. Operators: This procedure was performed by SARIKA Lee under direct supervision of Akil Chung M.D. Folder And Notcher: None. Estimated Blood Loss: < 1 cc. [...] was achieved with 2% lidocaine, a 5 Mauritanian one-step catheter was advanced into the peritoneal cavity under ultrasound guidance. After completion of drainage, the catheter was removed. There was no evidence of complication. Impression:Successful ultrasound guided paracentesis. Signed: Akil Chung MDReport Verified Date/Time: 05/26/2019 17:14:25 Reading Location : [address] Ultrasound Reading Room U/S, [id number] 17:12:00Reason for exam:->ascitesFINAL REPORT Ultrasound guided paracentesis Clinical History: Ascites. Sedation: None. Export Coordinator: Micheline Pena PA-C Supervising Physician: Shravan Ruiz MD Folder And Notcher: None. Estimated Blood Loss: < 1 mL. [...] anesthesia was achieved with lidocaine, a 5 Mauritanian one-step catheter was advanced into theperitoneal cavity under ultrasound guidance. After completion of drainage, the catheter was removed.There was no evidence of complication. Impression:Successful ultrasound guided paracentesis. Signed:Shravan Ruiz Verified Date/Time: 05/26/2019 17:12:51 Reading Location: [address] Ultrasound Reading Room POCT-GLUCOSE [id number] 17:02: 00 Test Item Value Reference Range Comments POC-GLUCOSE METER (BEAKER) 204 mg/dL 70-110 TESTED AT [address] (test cszd=1709) [place] [address] POCT-GLUCOSE [id number] 13:52:00 Test Item Value Reference Range Comments POC-GLUCOSE METER (BEAKER) 185 mg/dL 70-110 TESTED AT [address] (test usbd=7453) [place] [address] BODY FLUID CELL COUNT WITH [id number] 13:12:00 Test Item Value Reference Range Comments APPEARANCE FLUID (BEAKER) (test asfd=295) Slightly Hazy Clear COLOR FLUID (BEAKER) (test okeu=951) Yellow Colorless, Straw RBC FLUID (BEAKER) (test qlyv=776) 3000 /cu mm <=1 ADJUSTED WBC FLUID (BEAKER) (test wcsf=2111) 107 /cu mm <=5 LINING CELLS (BEAKER) (test gzvx=5571) 13 /cu mm <=1 NEUTROPHILS FLUID (BEAKER) (test qxec=8232) 0 % LYMPHS FLUID (BEAKER) (test wnjg=581) 21 % MONO/MACROPHAGE FLUID (BEAKER) (test 78 % ubjz=408) EOSINOPHILS FLUID (BEAKER) (test kdwf=288) 1 % BASO FLUID (BEAKER) (test udqf=736) 0 % CONTAINER BODY FLUID (BEAKER) (test EDTA Tube ibtt=4712) POCT-GLUCOSE [id number] 08:40:00 Test Item Value Reference Range Comments POC-GLUCOSE METER (BEAKER) 113 mg/dL 70-110 TESTED AT [address] (test crdi=5759) [place] [address] [id number] 07:18:00 Test Item Value Reference Range Comments T3 TOTAL (BEAKER) (test 34 ng/dL 48-159 Performed at [facility]. Refer. ttud=956) Range:76-181 [id number] 05:45:00 Test Item Value Reference Range Comments PHOSPHORUS (BEAKER) (test qals=826) 1.7 mg/dL 2.3-4.7 [id number] 05:45:00 Test Item Value Reference Range Comments MAGNESIUM (BEAKER) (test livn=830) 1.8 mg/dL 1.6-2.6 COMPREHENSIVE METABOLIC [id number] 05:45:00 Test Item Value Reference Range Comments TOTAL PROTEIN (BEAKER) 5.1 gm/dL 6.0-8.3 (test nbxr=044) ALBUMIN (BEAKER) (test 3.1 g/dL 3.5-5.0 esgp=2873) ALKALINE PHOSPHATASE 88 U/L 40-150 (BEAKER) (test mxhm=414) BILIRUBIN TOTAL (BEAKER) 1.6 mg/dL 0.2-1.2 (test jiif=083) SODIUM (BEAKER) (test 140 meq/L 136-145 yvau=804) POTASSIUM (BEAKER) (test 3.8 meq/L 3.5-5.1 jrtg=174) CHLORIDE (BEAKER) (test 100 meq/L 98-107 lfcg=297) CO2 (BEAKER) (test 36 meq/L 22-29 akmm=621) BLOOD UREA NITROGEN 16 mg/dL 7-21 (BEAKER) (test mecr=688) CREATININE (BEAKER) (test 1.37 mg/dL 0.57-1.25 cagj=694) GLUCOSE RANDOM (BEAKER) 159 mg/dL 70-105 (test owuc=704) CALCIUM (BEAKER) (test 8.4 mg/dL 8.4-10.2 pbtr=738) AST (SGOT) (BEAKER) (test 26 U/L 5-34 qpod=036) ALT (SGPT) (BEAKER) (test 10 U/L 6-55 wrcs=652) EGFR (BEAKER) (test 39 mL/min/1.73 sq m ESTIMATED GFR IS NOT mdmk=2263) ACCURATE CREATININE CLEARANCE IN PREDICTING GLOMERULAR FILTRATION RATE. ESTIMATED GFR IS NOT APPLICABLE FOR DIALYSIS PATIENTS. CALCIUM, [id number] 05:11:00 Test Item Value Reference Range Comments CALCIUM IONIZED (BEAKER) (test juxg=444) 0.99 mmol/L 1.12-1.27 PH, BLOOD (BEAKER) (test ncqr=7398) 7.57 CBC W/PLT COUNT & AUTO [id number] 05:04:00 Test Item Value Reference Range Comments WHITE BLOOD CELL COUNT (BEAKER) (test rqyv=849) 4.6 K/ L 3.5-10.5 RED BLOOD CELL COUNT (BEAKER) (test rqrf=393) 2.81 M/ L 3.93-5.22 HEMOGLOBIN (BEAKER) (test kijf=267) 7.8 GM/DL 11.2-15.7 HEMATOCRIT (BEAKER) (test xjqm=186) 24.6 % 34.1-44.9 MEAN CORPUSCULAR VOLUME (BEAKER) (test etcl=866) 87.5 fL 79.4-94.8 MEAN CORPUSCULAR HEMOGLOBIN (BEAKER) (test 27.8 pg 25.6-32.2 xnvq=501) MEAN CORPUSCULAR HEMOGLOBIN CONC (BEAKER) (test 31.7 GM/DL 32.2-35.5 nhix=319) RED CELL DISTRIBUTION WIDTH (BEAKER) (test 17.2 % 11.7-14.4 miat=493) PLATELET COUNT (BEAKER) (test szgt=056) 129 K/CU MM 150-450 MEAN PLATELET VOLUME (BEAKER) (test uxhq=961) 9.0 fL 9.4-12.3 NUCLEATED RED BLOOD CELLS (BEAKER) (test 0 /100 WBC 0-0 sfwv=157) NEUTROPHILS RELATIVE PERCENT (BEAKER) (test 47 % lltk=214) LYMPHOCYTES RELATIVE PERCENT (BEAKER) (test 29 % bunm=050) MONOCYTES RELATIVE PERCENT (BEAKER) (test 13 % hnqk=136) EOSINOPHILS RELATIVE PERCENT (BEAKER) (test 11 % tjph=632) BASOPHILS RELATIVE PERCENT (BEAKER) (test 1 % vpyv=158) NEUTROPHILS ABSOLUTE COUNT (BEAKER) (test 2.17 K/ L 1.56-6.13 vviy=166) LYMPHOCYTES ABSOLUTE COUNT (BEAKER) (test 1.32 K/ L 1.18-3.74 jsxu=456) MONOCYTES ABSOLUTE COUNT (BEAKER) (test 0.58 K/ L 0.24-0.36 shqf=814) EOSINOPHILS ABSOLUTE COUNT (BEAKER) (test 0.49 K/ L 0.04-0.36 iwgr=808) BASOPHILS ABSOLUTE COUNT (BEAKER) (test 0.06 K/ L 0.01-0.08 mzhg=142) IMMATURE GRANULOCYTES-RELATIVE PERCENT (BEAKER) 0 % 0-1 (test dcgf=2005) POCT-GLUCOSE [id number] 23:10:00 Test Item Value Reference Range Comments POC-GLUCOSE METER (BEAKER) 239 mg/dL 70-110 TESTED AT [address] (test hdwf=5534) [place] [address] [id number] 19:02:00 Test Item Value Reference Range Comments SODIUM (BEAKER) (test zwny=390) 138 meq/L 136-145 POTASSIUM (BEAKER) (test cukk=000) 3.7 meq/L 3.5-5.1 CHLORIDE (BEAKER) (test lkeh=333) 100 meq/L 98-107 CO2 (BEAKER) (test msyv=789) 31 meq/L 22-29 Call [phone] with resultsPOCT-GLUCOSE [id number] 16:50:00 Test Item Value Reference Range Comments POC-GLUCOSE METER (BEAKER) 203 mg/dL 70-110 TESTED AT [address] (test ybsc=6757) [place] [address] POCT-GLUCOSE [id number] 12:49:00 Test Item Value Reference Range Comments POC-GLUCOSE METER (BEAKER) 219 mg/dL 70-110 TESTED AT [address] (test wufe=4206) [place] [address] ANTI-NUCLEAR ANTIBODY (QUE)[id number] 10:03:00 Test Item Value Reference Range Comments ANTI-NUCLEAR ANTIBODY (QUE) (BEAKER) (test Negative Negative iibh=166) Test performed by IFA method.Test performed by IFA method.POCT-GLUCOSE [id number] 08:54:00 Test Item Value Reference Range Comments POC-GLUCOSE METER (BEAKER) 125 mg/dL 70-110 TESTED AT [address] (test jfkn=4623) [place] [address] BASIC METABOLIC [id number] 07:41:00 Test Item Value Reference Range Comments SODIUM (BEAKER) (test 141 meq/L 136-145 zsik=478) POTASSIUM (BEAKER) (test 3.0 meq/L 3.5-5.1 cmds=549) CHLORIDE (BEAKER) (test 101 meq/L 98-107 hwgq=208) CO2 (BEAKER) (test 35 meq/L 22-29 hqwc=633) BLOOD UREA NITROGEN 16 mg/dL 7-21 (BEAKER) (test jmeq=981) CREATININE (BEAKER) (test 1.31 mg/dL 0.57-1.25 rdqd=110) GLUCOSE RANDOM (BEAKER) 136 mg/dL 70-105 (test agxs=794) CALCIUM (BEAKER) (test 7.9 mg/dL 8.4-10.2 kkdx=039) EGFR (BEAKER) (test 41 mL/min/1.73 sq m ESTIMATED GFR IS NOT diew=4976) ACCURATE CREATININE CLEARANCE IN PREDICTING GLOMERULAR FILTRATION RATE. ESTIMATED GFR IS NOT APPLICABLE FOR DIALYSIS PATIENTS. [id number] 07:32:00 Test Item Value Reference Range Comments PHOSPHORUS (BEAKER) (test kyig=470) 2.0 mg/dL 2.3-4.7 [id number] 07:32:00 Test Item Value Reference Range Comments MAGNESIUM (BEAKER) (test mcrp=936) 1.6 mg/dL 1.6-2.6 HEPATIC FUNCTION [id number] 07:32:00 Test Item Value Reference Range Comments TOTAL PROTEIN (BEAKER) (test stzb=091) 4.9 gm/dL 6.0-8.3 ALBUMIN (BEAKER) (test mnpd=3395) 3.0 g/dL 3.5-5.0 BILIRUBIN TOTAL (BEAKER) (test zges=615) 1.4 mg/dL 0.2-1.2 BILIRUBIN DIRECT (BEAKER) (test leot=226) 0.7 mg/dL 0.1-0.5 ALKALINE PHOSPHATASE (BEAKER) (test ilgo=269) 86 U/L 40-150 AST (SGOT) (BEAKER) (test yksg=941) 25 U/L 5-34 ALT (SGPT) (BEAKER) (test oyof=797) 10 U/L 6-55 CBC W/PLT COUNT & AUTO [id number] 06:11:00 Test Item Value Reference Range Comments WHITE BLOOD CELL COUNT (BEAKER) (test hoxs=059) 4.2 K/ L 3.5-10.5 RED BLOOD CELL COUNT (BEAKER) (test egbv=181) 2.68 M/ L 3.93-5.22 HEMOGLOBIN (BEAKER) (test wstj=700) 7.4 GM/DL 11.2-15.7 HEMATOCRIT (BEAKER) (test epku=144) 23.5 % 34.1-44.9 MEAN CORPUSCULAR VOLUME (BEAKER) (test prno=177) 87.7 fL 79.4-94.8 MEAN CORPUSCULAR HEMOGLOBIN (BEAKER) (test 27.6 pg 25.6-32.2 erhq=443) MEAN CORPUSCULAR HEMOGLOBIN CONC (BEAKER) (test 31.5 GM/DL 32.2-35.5 snuu=705) RED CELL DISTRIBUTION WIDTH (BEAKER) (test 18.2 % 11.7-14.4 rdhi=307) PLATELET COUNT (BEAKER) (test saoy=137) 140 K/CU MM 150-450 MEAN PLATELET VOLUME (BEAKER) (test mpgn=338) 10.3 fL 9.4-12.3 NUCLEATED RED BLOOD CELLS (BEAKER) (test 0 /100 WBC 0-0 fmcj=440) NEUTROPHILS RELATIVE PERCENT (BEAKER) (test 44 % mvto=048) LYMPHOCYTES RELATIVE PERCENT (BEAKER) (test 33 % uzxj=057) MONOCYTES RELATIVE PERCENT (BEAKER) (test 12 % kbnd=424) EOSINOPHILS RELATIVE PERCENT (BEAKER) (test 10 % laje=692) BASOPHILS RELATIVE PERCENT (BEAKER) (test 2 % nzur=602) NEUTROPHILS ABSOLUTE COUNT (BEAKER) (test 1.82 K/ L 1.56-6.13 hrxa=019) LYMPHOCYTES ABSOLUTE COUNT (BEAKER) (test 1.36 K/ L 1.18-3.74 ytqk=380) MONOCYTES ABSOLUTE COUNT (BEAKER) (test 0.48 K/ L 0.24-0.36 jvxz=818) EOSINOPHILS ABSOLUTE COUNT (BEAKER) (test 0.42 K/ L 0.04-0.36 engk=965) BASOPHILS ABSOLUTE COUNT (BEAKER) (test 0.07 K/ L 0.01-0.08 jqxp=067) IMMATURE GRANULOCYTES-RELATIVE PERCENT (BEAKER) 0 % 0-1 (test agvg=8717) PROTHROMBIN [id number] 05:31:00 Test Item Value Reference Range Comments PROTIME (BEAKER) (test oche=879) 14.8 seconds 11.9-14.2 INR (BEAKER) (test hmii=317) 1.2 <=5.9 Effective 04/01/2019: PT Reference Range ChangeNew: 11.9-14.2 Previous: 11.7- 14.7RECOMMENDED COUMADIN/WARFARIN INR THERAPY RANGESSTANDARD DOSE: 2.0-3.0 Includes: PROPHYLAXIS for venous thrombosis, systemic embolization; TREATMENT for venous thrombosis and/or pulmonary embolus.HIGH RISK: Target INR is2.5-3.5 for patients wiht mechanical heart valves.BLOOD [id number] 02:01:00 Test Item Value Reference Range Comments CULTURE (BEAKER) (test zbqt=1410) No growth in 5 days BLOOD [id number] 02:01:00 Test Item Value Reference Range Comments CULTURE (BEAKER) (test bkek=6738) No growth in 5 days POCT-GLUCOSE [id number] 23:07:00 Test Item Value Reference Range Comments POC-GLUCOSE METER (BEAKER) 217 mg/dL 70-110 TESTED AT [address] (test vtzc=1292) [place] [id number] POCT-GLUCOSE [id number] 17:54:00 Test Item Value Reference Range Comments POC-GLUCOSE METER (BEAKER) 138 mg/dL 70-110 TESTED AT [address] (test peup=7524) [place] [id number] POCT-GLUCOSE [id number] 12:22:00 Test Item Value Reference Range Comments POC-GLUCOSE METER (BEAKER) 114 mg/dL 70-110 TESTED AT [address] (test eisg=0984) [place] [id number] POCT-GLUCOSE [id number] 07:39:00 Test Item Value Reference Range Comments POC-GLUCOSE METER (BEAKER) 124 mg/dL 70-110 TESTED AT [address] (test nwgy=4284) [place] [id number] HEPATIC FUNCTION [id number] 05:49:00 Test Item Value Reference Range Comments TOTAL PROTEIN (BEAKER) (test oesy=444) 5.1 gm/dL 6.0-8.3 ALBUMIN (BEAKER) (test mvzg=6468) 2.9 g/dL 3.5-5.0 BILIRUBIN TOTAL (BEAKER) (test pqqp=993) 1.3 mg/dL 0.2-1.2 BILIRUBIN DIRECT (BEAKER) (test ivvs=947) 0.7 mg/dL 0.1-0.5 ALKALINE PHOSPHATASE (BEAKER) (test coxs=028) 91 U/L 40-150 AST (SGOT) (BEAKER) (test jldk=232) 30 U/L 5-34 ALT (SGPT) (BEAKER) (test ybvm=855) 10 U/L 6-55 BASIC METABOLIC [id number] 05:49:00 Test Item Value Reference Range Comments SODIUM (BEAKER) (test 140 meq/L 136-145 esni=917) POTASSIUM (BEAKER) (test 3.2 meq/L 3.5-5.1 vzun=509) CHLORIDE (BEAKER) (test 103 meq/L 98-107 eqni=792) CO2 (BEAKER) (test 27 meq/L 22-29 srhf=316) BLOOD UREA NITROGEN 17 mg/dL 7-21 (BEAKER) (test bojn=958) CREATININE (BEAKER) (test 1.30 mg/dL 0.57-1.25 pofi=244) GLUCOSE RANDOM (BEAKER) 143 mg/dL 70-105 (test igfr=608) CALCIUM (BEAKER) (test 7.9 mg/dL 8.4-10.2 dlpu=496) EGFR (BEAKER) (test 42 mL/min/1.73 sq m ESTIMATED GFR IS NOT izje=2434) ACCURATE CREATININE CLEARANCE IN PREDICTING GLOMERULAR FILTRATION RATE. ESTIMATED GFR IS NOT APPLICABLE FOR DIALYSIS PATIENTS. PROTHROMBIN [id number] 05:32:00 Test Item Value Reference Range Comments PROTIME (BEAKER) (test iimr=425) 14.7 seconds 11.9-14.2 INR (BEAKER) (test xsnc=593) 1.2 <=5.9 Effective 04/01/2019: PT Reference Range ChangeNew: 11.9-14.2 Previous: 11.7- 14.7RECOMMENDED COUMADIN/WARFARIN INR THERAPY RANGESSTANDARD DOSE: 2.0-3.0 Includes: PROPHYLAXIS for venous thrombosis, systemic embolization; TREATMENT for venous thrombosis and/or pulmonary embolus.HIGH RISK: Target INR is2.5-3.5 for patients wiht mechanical heart valves.CBC W/PLT COUNT & AUTO [id number] 05:09:00 Test Item Value Reference Range Comments WHITE BLOOD CELL COUNT (BEAKER) (test yptj=203) 4.7 K/ L 3.5-10.5 RED BLOOD CELL COUNT (BEAKER) (test nrqm=182) 2.86 M/ L 3.93-5.22 HEMOGLOBIN (BEAKER) (test vdsh=377) 7.9 GM/DL 11.2-15.7 HEMATOCRIT (BEAKER) (test bmpl=000) 25.3 % 34.1-44.9 MEAN CORPUSCULAR VOLUME (BEAKER) (test ixge=689) 88.5 fL 79.4-94.8 MEAN CORPUSCULAR HEMOGLOBIN (BEAKER) (test 27.6 pg 25.6-32.2 yzxz=354) MEAN CORPUSCULAR HEMOGLOBIN CONC (BEAKER) (test 31.2 GM/DL 32.2-35.5 cukm=657) RED CELL DISTRIBUTION WIDTH (BEAKER) (test 17.4 % 11.7-14.4 phuk=903) PLATELET COUNT (BEAKER) (test krvj=880) 141 K/CU MM 150-450 MEAN PLATELET VOLUME (BEAKER) (test gklt=262) 9.3 fL 9.4-12.3 NUCLEATED RED BLOOD CELLS (BEAKER) (test 0 /100 WBC 0-0 nqld=407) NEUTROPHILS RELATIVE PERCENT (BEAKER) (test 50 % iudq=116) LYMPHOCYTES RELATIVE PERCENT (BEAKER) (test 28 % gmmz=505) MONOCYTES RELATIVE PERCENT (BEAKER) (test 11 % ggwm=887) EOSINOPHILS RELATIVE PERCENT (BEAKER) (test 10 % guls=074) BASOPHILS RELATIVE PERCENT (BEAKER) (test 1 % zaif=792) NEUTROPHILS ABSOLUTE COUNT (BEAKER) (test 2.33 K/ L 1.56-6.13 ffbp=643) LYMPHOCYTES ABSOLUTE COUNT (BEAKER) (test 1.31 K/ L 1.18-3.74 koik=252) MONOCYTES ABSOLUTE COUNT (BEAKER) (test 0.51 K/ L 0.24-0.36 axeq=996) EOSINOPHILS ABSOLUTE COUNT (BEAKER) (test 0.46 K/ L 0.04-0.36 uyfg=989) BASOPHILS ABSOLUTE COUNT (BEAKER) (test 0.06 K/ L 0.01-0.08 cgjk=251) IMMATURE GRANULOCYTES-RELATIVE PERCENT (BEAKER) 0 % 0-1 (test zjaw=1636) BLOOD GAS, [id number] 22:21:00 Test Item Value Reference Range Comments PH ARTERIAL (BEAKER) (test ksbe=856) 7.49 7.35-7.45 PCO2 ARTERIAL (BEAKER) (test uwcf=824) 43 mmHg 35-45 PO2 ARTERIAL (BEAKER) (test lqzk=864) 56 mmHg 80-90 O2 SATURATION ARTERIAL (BEAKER) (test axzh=623) 92.5 % 96.0-97.0 HCO3 ARTERIAL (BEAKER) (test cvcq=163) 32 mmol/L 21-29 BASE EXCESS ARTERIAL (BEAKER) (test pxmy=090) 7.9 mmol/L -2.0-3.0 PATIENT TEMPERATURE (BEAKER) (test ecpr=6180) 35.8 C FIO2 (BEAKER) (test nqyd=4603) 21.0 % POCT-GLUCOSE [id number] 21:14:00 Test Item Value Reference Range Comments POC-GLUCOSE METER (BEAKER) 259 mg/dL 70-110 TESTED AT [address] (test tevg=0844) [place] [address] BODY FLUID CULTURE + GRAM [id number] 18:00:00 Test Item Value Reference Range Comments CULTURE (BEAKER) (test ziny=3567) No growth GRAM STAIN RESULT (BEAKER) (test No WBCs lizr=2544) GRAM STAIN RESULT (BEAKER) (test No organisms seen qpku=79018) POCT-GLUCOSE [id number] 17:23:00 Test Item Value Reference Range Comments POC-GLUCOSE METER (BEAKER) 201 mg/dL 70-110 TESTED AT [address] (test xmlf=3360) [place] [address] RAD, MANDIBLE, MIN 4 [id number] 15:00:00Reason for exam:->liver transplant evalShould this be [...] Martinez MDReport Verified Date/Time: 05/23/201915:00:10 Reading Location: [address] Transitional Reading Room CRYPTOCOCCAL [id number] 14:59:00 Test Item Value Reference Range Comments CRYPTOCOCCAL ANTIGEN, SERUM (BEAKER) (test Negative Negative, Interference sjjg=1577) [id number] 14:45:00 Test Item Value Reference Range Comments RPR SCREEN (BEAKER) (test peah=899) Nonreactive Nonreactive CYTOMEGALOVIRUS ANTIBODY, [id number] 13:48:00 Test Item Value Reference Range Comments CYTOMEGALOVIRUS, IGG (BEAKER) (test bord=0081) Positive Negative, Equivocal CMV IgG Result Interpretation: </=0.8 Al Negative 0.9-1.0 Al Equivocal &gt ;/=1.1 Al PositiveCYTOMEGALOVIRUS ANTIBODY, [id number] 13:48:00 Test Item Value Reference Range Comments CYTOMEGALOVIRUS IGM ANTIBODY (BEAKER) (test Negative Negative, Equivocal hpep=8241) CMV IgM Result Interpretation: </=0.8 Al Negative 0.9-1.0 Al Equivocal >/=1.1 Al PositiveEBV ANTIBODY, [id number] 13:48:00 Test Item Value Reference Range Comments BERTRAND BOLES VIRAL CAPSID ANTIGEN IGG (BEAKER) Positive Negative, Equivocal (test cfvz=7012) Bertrand Boles Viral Capsid Antigen IgG Result Interpretation: </=0.8 Al Negative 0.9-1.0 Al Equivocal >/=1.1 Al PositiveEBV ANTIBODY, [id number] 13:48:00 Test Item Value Reference Range Comments BERTRAND BOLES VIRAL CAPSID ANTIGEN IGM (BEAKER) Negative Negative, Equivocal (test qqpi=8459) Bertrand Boles Viral Capsid Antigen IgM Result Interpretation: </=0.8 Al Negative 0.9-1.0 Al Equivocal >/=1.1 Al PositiveVARICELLA ZOSTER ANTIBODY , [id number] 13:48:00 Test Item Value Reference Range Comments VARICELLA ZOSTER IGG (AL) (BEAKER) (test yazm=1425) 0.9 VARICELLA ZOSTER RESULT INTERPRETATIONS: <=0.8 Al Nonreactive: Presumed non-immune to VZV 0.9-1.0 Al Equivocal >=1.1 Al Reactive: Presumed immune to VZVRUBELLA ANTIBODY, [id number] 13:48:00 Test Item Value Reference Range Comments RUBELLA IGG QUANTITATION (AKER) (test ztpm=300) 12.0 IU/mL <8.0 Rubella IgG Result Interpretation: </=7.0 IU/mL Negative - Presumed non- immune 8.0 - 9.9 IU/mL Equivocal >=10.0 IU/mL Positive - Presumed immunePOCT-GLUCOSE [id number] 11:41:00 Test Item Value Reference Range Comments POC-GLUCOSE METER (BEAKER) 162 mg/dL 70-110 TESTED AT [address] (test bidq=7395) [facility] [address] POCT-GLUCOSE [id number] 10:06:00 Test Item Value Reference Range Comments POC-GLUCOSE METER (BEAKER) 95 mg/dL 70-110 TESTED AT [address] (test glhs=8197) [place] [id number] IRON, TIBC, % SAT. (WITHOUT FERRITIN)2019-05-23 07:32:00 Test Item Value Reference Range Comments IRON (BEAKER) (test klyj=520) 30.0 ug/dL 40.0-160.0 TOTAL IRON BINDING CAPACITY (BEAKER) (test 143 ug/dL 250-450 adun=098) IRON % SATURATION (2) (BEAKER) (test faxd=5542) 21 % 20-55 [id number] 06:29:00 Test Item Value Reference Range Comments PHOSPHORUS (BEAKER) (test iybv=703) 1.9 mg/dL 2.3-4.7 [id number] 06:29:00 Test Item Value Reference Range Comments MAGNESIUM (BEAKER) (test chbt=862) 1.5 mg/dL 1.6-2.6 HEPATIC FUNCTION [id number] 06:29:00 Test Item Value Reference Range Comments TOTAL PROTEIN (BEAKER) (test pige=785) 5.2 gm/dL 6.0-8.3 ALBUMIN (BEAKER) (test zsjx=0267) 3.0 g/dL 3.5-5.0 BILIRUBIN TOTAL (BEAKER) (test xegf=746) 1.6 mg/dL 0.2-1.2 BILIRUBIN DIRECT (BEAKER) (test uqrl=941) 0.8 mg/dL 0.1-0.5 ALKALINE PHOSPHATASE (BEAKER) (test hckt=307) 87 U/L 40-150 AST (SGOT) (BEAKER) (test qlsg=058) 24 U/L 5-34 ALT (SGPT) (BEAKER) (test fcnx=456) 11 U/L 6-55 COMPREHENSIVE METABOLIC [id number] 06:29:00 Test Item Value Reference Range Comments TOTAL PROTEIN (BEAKER) 5.2 gm/dL 6.0-8.3 (test vrpp=419) ALBUMIN (BEAKER) (test 3.0 g/dL 3.5-5.0 cjhj=4523) ALKALINE PHOSPHATASE 87 U/L 40-150 (BEAKER) (test erza=433) BILIRUBIN TOTAL (BEAKER) 1.6 mg/dL 0.2-1.2 (test bwgh=730) SODIUM (BEAKER) (test 139 meq/L 136-145 amjw=869) POTASSIUM (BEAKER) (test 3.3 meq/L 3.5-5.1 xmcn=115) CHLORIDE (BEAKER) (test 104 meq/L 98-107 gtvr=621) CO2 (BEAKER) (test 30 meq/L 22-29 nvtt=892) BLOOD UREA NITROGEN 18 mg/dL 7-21 (BEAKER) (test ygtj=215) CREATININE (BEAKER) (test 1.41 mg/dL 0.57-1.25 sqgr=986) GLUCOSE RANDOM (BEAKER) 102 mg/dL 70-105 (test ncff=274) CALCIUM (BEAKER) (test 8.1 mg/dL 8.4-10.2 drmt=572) AST (SGOT) (BEAKER) (test 24 U/L 5-34 pqjv=711) ALT (SGPT) (BEAKER) (test 11 U/L 6-55 ysdo=220) EGFR (BEAKER) (test 38 mL/min/1.73 sq m ESTIMATED GFR IS NOT aaam=4797) ACCURATE CREATININE CLEARANCE IN PREDICTING GLOMERULAR FILTRATION RATE. ESTIMATED GFR IS NOT APPLICABLE FOR DIALYSIS PATIENTS. CBC W/PLT COUNT & AUTO [id number] 05:46:00 Test Item Value Reference Range Comments WHITE BLOOD CELL COUNT (BEAKER) (test wplk=577) 4.9 K/ L 3.5-10.5 RED BLOOD CELL COUNT (BEAKER) (test ehrd=917) 2.83 M/ L 3.93-5.22 HEMOGLOBIN (BEAKER) (test guzs=560) 8.0 GM/DL 11.2-15.7 HEMATOCRIT (BEAKER) (test vgfa=084) 24.4 % 34.1-44.9 MEAN CORPUSCULAR VOLUME (BEAKER) (test ucng=069) 86.2 fL 79.4-94.8 MEAN CORPUSCULAR HEMOGLOBIN (BEAKER) (test 28.3 pg 25.6-32.2 lsyo=299) MEAN CORPUSCULAR HEMOGLOBIN CONC (BEAKER) (test 32.8 GM/DL 32.2-35.5 hxpk=205) RED CELL DISTRIBUTION WIDTH (BEAKER) (test 17.6 % 11.7-14.4 vuxc=413) PLATELET COUNT (BEAKER) (test ukwa=792) 147 K/CU MM 150-450 MEAN PLATELET VOLUME (BEAKER) (test tmwx=224) 9.1 fL 9.4-12.3 NUCLEATED RED BLOOD CELLS (BEAKER) (test 0 /100 WBC 0-0 iszi=006) NEUTROPHILS RELATIVE PERCENT (BEAKER) (test 51 % pzqq=841) LYMPHOCYTES RELATIVE PERCENT (BEAKER) (test 27 % zlzs=295) MONOCYTES RELATIVE PERCENT (BEAKER) (test 11 % dagf=469) EOSINOPHILS RELATIVE PERCENT (BEAKER) (test 10 % uvue=836) BASOPHILS RELATIVE PERCENT (BEAKER) (test 1 % oatd=480) NEUTROPHILS ABSOLUTE COUNT (BEAKER) (test 2.51 K/ L 1.56-6.13 vwzs=102) LYMPHOCYTES ABSOLUTE COUNT (BEAKER) (test 1.30 K/ L 1.18-3.74 kcma=114) MONOCYTES ABSOLUTE COUNT (BEAKER) (test 0.54 K/ L 0.24-0.36 kunp=188) EOSINOPHILS ABSOLUTE COUNT (BEAKER) (test 0.48 K/ L 0.04-0.36 uujr=651) BASOPHILS ABSOLUTE COUNT (BEAKER) (test 0.06 K/ L 0.01-0.08 orpc=353) IMMATURE GRANULOCYTES-RELATIVE PERCENT (BEAKER) 0 % 0-1 (test zmte=4964) PROTHROMBIN [id number] 05:46:00 Test Item Value Reference Range Comments PROTIME (BEAKER) (test ypbu=278) 14.9 seconds 11.9-14.2 INR (BEAKER) (test wevp=574) 1.2 <=5.9 Effective 04/01/2019: PT Reference Range ChangeNew: 11.9-14.2 Previous: 11.7- 14.7RECOMMENDED COUMADIN/WARFARIN INR THERAPY RANGESSTANDARD DOSE: 2.0-3.0 Includes: PROPHYLAXIS for venous thrombosis, systemic embolization; TREATMENT for venous thrombosis and/or pulmonary embolus.HIGH RISK: Target INR is2.5-3.5 for patients wiht mechanical heart valves.CALCIUM, [id number] 05:44:00 Test Item Value Reference Range Comments CALCIUM IONIZED (BEAKER) (test xapg=390) 0.99 mmol/L 1.12-1.27 PH, BLOOD (BEAKER) (test fcgc=4208) 7.48 HEMOGLOBIN [id number] 22:07:00 Test Item Value Reference Range Comments HEMOGLOBIN A1C (BEAKER) (test qbfm=224) 8.1 % 4.3-6.1 POCT-GLUCOSE [id number] 21:38:00 Test Item Value Reference Range Comments POC-GLUCOSE METER (BEAKER) 213 mg/dL 70-110 TESTED AT [address] (test mamm=3694) [facility] [address] POCT-GLUCOSE [id number] 18:07:00 Test Item Value Reference Range Comments POC-GLUCOSE METER (BEAKER) 212 mg/dL 70-110 TESTED AT [address] (test yway=9250) [facility] [address] ALPHA FETOPROTEIN (AFP), TUMOR [id number] 17:50:00 Test Item Value Reference Range Comments ALPHA-FETOPROTEIN (BEAKER) (test kusv=5000) < ng/mL <10.0 HEPATITIS C [id number] 17:49:00 Test Item Value Reference Range Comments HEPATITIS C ANTIBODY (BEAKER) (test mbtw=302) Nonreactive Nonreactive VITAMIN D, [id number] 15:10:00 Test Item Value Reference Range Comments VITAMIN D 25-OH (BEAKER) (test rjwn=2035) < ng/mL 6.6-49.9 Effective 08/14/2017: Reference Range ChangeNew: 6.6-49.9 ng/mL Previous: 13.0 -47.8 ng/mLRecommended Vitamin D Target Range: 30.0-40.0 ng/mLHEPATITIS B SURFACE [id number] 15:10:00 Test Item Value Reference Range Comments HEPATITIS B SURFACE ANTIBODY (BEAKER) (test < mIU/mL <8.0 thcw=124) CARCINOEMBRYONIC ANTIGEN (CEA)2019-05-22 15:10:00 Test Item Value Reference Range Comments CARCINOEMBRYONIC ANTIGEN (BEAKER) (test weqr=742) < ng/mL 0.0-5.0 HEPATITIS B CORE ANTIBODY, [id number] 15:08:00 Test Item Value Reference Range Comments HEPATITIS B CORE IGM ANTIBODY (BEAKER) (test Nonreactive Nonreactive tthx=325) HEPATITIS A ANTIBODY, [id number] 15:08:00 Test Item Value Reference Range Comments HEPATITIS A IGM ANTIBODY (BEAKER) (test Nonreactive Nonreactive zjwe=118) HEPATITIS A ANTIBODY, [id number] 15:08:00 Test Item Value Reference Range Comments HEPATITIS A IGG ANTIBODY (BEAKER) (test Nonreactive Nonreactive niuc=5959) HEPATITIS B SURFACE [id number] 15:05:00 Test Item Value Reference Range Comments HEPATITIS B SURFACE ANTIGEN (2) (BEAKER) (test Nonreactive Nonreactive hzaj=5162) HEPATITIS B CORE ANTIBODY, [id number] 15:05:00 Test Item Value Reference Range Comments HEPATITIS B CORE TOTAL ANTIBODY (BEAKER) (test Nonreactive Nonreactive izxp=748) HIV-1 ANTIGEN WITH HIV-1/2 [id number] 15:05:00 Test Item Value Reference Range Comments HIV-1 ANTIGEN WITH HIV 1\\T\\2 ANTIBODY (2) Nonreactive Nonreactive (BEAKER) (test jldi=5006) URIC [id number] 14:46:00 Test Item Value Reference Range Comments URIC ACID (BEAKER) (test mwwh=626) 5.7 mg/dL 2.6-7.2 LIPID [id number] 14:46:00 Test Item Value Reference Range Comments TRIGLYCERIDES (BEAKER) (test jprn=816) 71 mg/dL CHOLESTEROL (BEAKER) (test dfbs=029) 72 mg/dL HDL CHOLESTEROL (BEAKER) (test qyaq=835) 20 mg/dL LDL CHOLESTEROL CALCULATED (BEAKER) (test ehxr=062) 38 mg/dL Triglyceride Reference Range: Low Risk <150 Borderline 150- 199 High Risk 200-499 Very High Risk >=500Cholesterol Reference Range: Low Risk <200 Borderline 200-239 High Risk > 240HDL Cholesterol Reference Range: Low Risk >=60 High Risk <40LDL Cholesterol Reference Range: Optimal <100 Near Optimal 100-129 Borderline 130-159 High 160-189 Very High >=190BILIRUBIN, [id number] 14:46:00 Test Item Value Reference Range Comments BILIRUBIN DIRECT (BEAKER) (test mmnw=699) 0.8 mg/dL 0.1-0.5 GAMMA GLUTAMYL TRANSFERASE (GGT)2019-05-22 14:46:00 Test Item Value Reference Range Comments GAMMA GLUTAMYL TRANSFERASE (BEAKER) (test ddrm=443) 10 U/L 9-64 [id number] 14:45:00 Test Item Value Reference Range Comments ETHANOL (BEAKER) (test cory=487) < mg/dL <=10 [id number] 14:44:00 Test Item Value Reference Range Comments TRANSFERRIN (BEAKER) (test fjfv=968) 109 mg/dL 174-382 IRON, TIBC, % SAT. (WITHOUT FERRITIN)2019-05-22 14:44:00 Test Item Value Reference Range Comments IRON (BEAKER) (test aaky=528) 40.0 ug/dL 40.0-160.0 TOTAL IRON BINDING CAPACITY (BEAKER) (test 136 ug/dL 250-450 yveb=010) IRON % SATURATION (2) (BEAKER) (test yofl=4450) 29 % 20-55 [id number] 14:34:00 Test Item Value Reference Range Comments PARTIAL THROMBOPLASTIN TIME (DAKOTAH) (test 35.7 seconds 22.5-36.0 tyxv=796) [id number] 14:33:00 Test Item Value Reference Range Comments FIBRINOGEN LEVEL (DAKOTAH) (test osvq=306) 282 mg/dl 225-434 U/S, ABDOMINAL, WITH [id number] 14:09:00Reason for exam:->TIPS evaluationFINAL REPORT Ultrasound of [...] TIPS evaluation as above. Signed: Missy Momin MDReport Verified Date/Time: 05/22/2019 14:09:52 Reading Location: [address] Radiology Reading Room Electronically signed by: MISSY MOMIN M.D. on 2018 02:09 PMPOCT-GLUCOSE [id number] 12:31:00 Test Item Value Reference Range Comments POC-GLUCOSE METER (BEAKER) 252 mg/dL 70-110 TESTED AT [facility] [address] [facility] (test botk=8334) [facility] [address] COMPREHENSIVE METABOLIC [id number] 08:22:00 Test Item Value Reference Range Comments TOTAL PROTEIN (BEAKER) 4.8 gm/dL 6.0-8.3 (test rtfw=981) ALBUMIN (BEAKER) (test 3.0 g/dL 3.5-5.0 qdtj=4629) ALKALINE PHOSPHATASE 77 U/L 40-150 (BEAKER) (test lunq=219) BILIRUBIN TOTAL (BEAKER) 1.6 mg/dL 0.2-1.2 (test snag=535) SODIUM (BEAKER) (test 141 meq/L 136-145 bjli=586) POTASSIUM (BEAKER) (test 3.1 meq/L 3.5-5.1 dslg=801) CHLORIDE (BEAKER) (test 105 meq/L 98-107 tmkf=452) CO2 (BEAKER) (test 31 meq/L 22-29 dimo=003) BLOOD UREA NITROGEN 18 mg/dL 7-21 (BEAKER) (test ohxg=549) CREATININE (BEAKER) (test 1.50 mg/dL 0.57-1.25 qsok=396) GLUCOSE RANDOM (BEAKER) 145 mg/dL 70-105 (test bkju=767) CALCIUM (BEAKER) (test 7.9 mg/dL 8.4-10.2 tzln=694) AST (SGOT) (BEAKER) (test 23 U/L 5-34 fsqf=048) ALT (SGPT) (BEAKER) (test 7 U/L 6-55 vzga=478) EGFR (BEAKER) (test 35 mL/min/1.73 sq m ESTIMATED GFR IS NOT cvns=3529) ACCURATE CREATININE CLEARANCE IN PREDICTING GLOMERULAR FILTRATION RATE. ESTIMATED GFR IS NOT APPLICABLE FOR DIALYSIS PATIENTS. [id number] 08:19:00 Test Item Value Reference Range Comments PHOSPHORUS (BEAKER) (test cykk=471) 2.2 mg/dL 2.3-4.7 [id number] 08:19:00 Test Item Value Reference Range Comments MAGNESIUM (BEAKER) (test ymog=520) 1.5 mg/dL 1.6-2.6 HEPATIC FUNCTION [id number] 08:19:00 Test Item Value Reference Range Comments TOTAL PROTEIN (BEAKER) (test kdkd=757) 4.8 gm/dL 6.0-8.3 ALBUMIN (BEAKER) (test yqkh=2377) 3.0 g/dL 3.5-5.0 BILIRUBIN TOTAL (BEAKER) (test sjrp=450) 1.6 mg/dL 0.2-1.2 BILIRUBIN DIRECT (BEAKER) (test wbie=128) 0.7 mg/dL 0.1-0.5 ALKALINE PHOSPHATASE (BEAKER) (test efsv=927) 77 U/L 40-150 AST (SGOT) (BEAKER) (test ibad=965) 23 U/L 5-34 ALT (SGPT) (BEAKER) (test vadb=922) 7 U/L 6-55 POCT-GLUCOSE [id number] 08:08:00 Test Item Value Reference Range Comments POC-GLUCOSE METER (BEAKER) 154 mg/dL 70-110 TESTED AT [facility] [address] [place] [address] (test xkro=8238) [facility] [address] B-TYPE NATRIURETIC FACTOR (BNP)2019-05-22 06:18:00 Test Item Value Reference Range Comments B-TYPE NATRIURETIC PEPTIDE (BEAKER) (test 411 pg/mL 0-100 fpzt=055) PROTHROMBIN [id number] 06:00:00 Test Item Value Reference Range Comments PROTIME (BEAKER) (test tumg=553) 14.9 seconds 11.9-14.2 INR (BEAKER) (test tiit=601) 1.2 <=5.9 Effective 04/01/2019: PT Reference Range ChangeNew: 11.9-14.2 Previous: 11.7- 14.7RECOMMENDED COUMADIN/WARFARIN INR THERAPY RANGESSTANDARD DOSE: 2.0-3.0 Includes: PROPHYLAXIS for venous thrombosis, systemic embolization; TREATMENT for venous thrombosis and/or pulmonary embolus.HIGH RISK: Target INR is2.5-3.5 for patients wiht mechanical heart valves.CALCIUM, [id number] 05:48:00 Test Item Value Reference Range Comments CALCIUM IONIZED (BEAKER) (test bwdo=738) 1.04 mmol/L 1.12-1.27 PH, BLOOD (BEAKER) (test elwa=3516) 7.40 CBC W/PLT COUNT & AUTO [id number] 05:45:00 Test Item Value Reference Range Comments WHITE BLOOD CELL COUNT (BEAKER) (test arqg=859) 4.1 K/ L 3.5-10.5 RED BLOOD CELL COUNT (BEAKER) (test vzvq=358) 2.71 M/ L 3.93-5.22 HEMOGLOBIN (BEAKER) (test xmgx=235) 7.4 GM/DL 11.2-15.7 HEMATOCRIT (BEAKER) (test jkjz=679) 23.6 % 34.1-44.9 MEAN CORPUSCULAR VOLUME (BEAKER) (test fsqj=655) 87.1 fL 79.4-94.8 MEAN CORPUSCULAR HEMOGLOBIN (BEAKER) (test 27.3 pg 25.6-32.2 rawk=640) MEAN CORPUSCULAR HEMOGLOBIN CONC (BEAKER) (test 31.4 GM/DL 32.2-35.5 qzww=765) RED CELL DISTRIBUTION WIDTH (BEAKER) (test 17.2 % 11.7-14.4 lvvc=025) PLATELET COUNT (BEAKER) (test puge=172) 126 K/CU MM 150-450 MEAN PLATELET VOLUME (BEAKER) (test uxwz=486) 9.2 fL 9.4-12.3 NUCLEATED RED BLOOD CELLS (BEAKER) (test 0 /100 WBC 0-0 aiwc=531) NEUTROPHILS RELATIVE PERCENT (BEAKER) (test 49 % obrl=545) LYMPHOCYTES RELATIVE PERCENT (BEAKER) (test 29 % ksil=829) MONOCYTES RELATIVE PERCENT (BEAKER) (test 12 % yfui=324) EOSINOPHILS RELATIVE PERCENT (BEAKER) (test 8 % leuc=434) BASOPHILS RELATIVE PERCENT (BEAKER) (test 1 % xpyv=404) NEUTROPHILS ABSOLUTE COUNT (BEAKER) (test 2.03 K/ L 1.56-6.13 bhuc=572) LYMPHOCYTES ABSOLUTE COUNT (BEAKER) (test 1.21 K/ L 1.18-3.74 gmbh=371) MONOCYTES ABSOLUTE COUNT (BEAKER) (test 0.51 K/ L 0.24-0.36 zqlz=123) EOSINOPHILS ABSOLUTE COUNT (BEAKER) (test 0.34 K/ L 0.04-0.36 xzpe=907) BASOPHILS ABSOLUTE COUNT (BEAKER) (test 0.04 K/ L 0.01-0.08 kkyq=211) IMMATURE GRANULOCYTES-RELATIVE PERCENT (BEAKER) 0 % 0-1 (test lirf=2711) POCT-GLUCOSE [id number] 21:52:00 Test Item Value Reference Range Comments POC-GLUCOSE METER (BEAKER) 241 mg/dL 70-110 TESTED AT [address] (test bsbw=3829) [place] [address] POCT-GLUCOSE [id number] 17:36:00 Test Item Value Reference Range Comments POC-GLUCOSE METER (BEAKER) 291 mg/dL 70-110 TESTED AT [address] (test mimu=4627) [place] [id number] BODY FLUID CELL COUNT WITH [id number] 13:52:00 Test Item Value Reference Range Comments APPEARANCE FLUID (BEAKER) (test wppt=629) Clear Clear COLOR FLUID (BEAKER) (test rgtv=746) Yellow Colorless, Straw RBC FLUID (BEAKER) (test acqz=392) 1815 /cu mm <=1 ADJUSTED WBC FLUID (BEAKER) (test uqwb=5101) 79 /cu mm <=5 LINING CELLS (BEAKER) (test kduf=5935) 14 /cu mm <=1 NEUTROPHILS FLUID (BEAKER) (test csei=0122) 0 % LYMPHS FLUID (BEAKER) (test sxej=515) 25 % MONO/MACROPHAGE FLUID (BEAKER) (test uwzl=144) 74 % EOSINOPHILS FLUID (BEAKER) (test urru=281) 1 % BASO FLUID (BEAKER) (test mbfm=322) 0 % CONTAINER BODY FLUID (BEAKER) (test xeoo=0877) EDTA Tube HEMOGLOBIN [id number] 13:47:00 Test Item Value Reference Range Comments HEMOGLOBIN A1C (BEAKER) (test micb=080) 8.4 % 4.3-6.1 POCT-GLUCOSE [id number] 11:56:00 Test Item Value Reference Range Comments POC-GLUCOSE METER (BEAKER) 223 mg/dL 70-110 TESTED AT [facility] [address] [facility] (test sezc=6763) [facility] [address] POCT-GLUCOSE [id number] 08:31:00 Test Item Value Reference Range Comments POC-GLUCOSE METER (BEAKER) 257 mg/dL 70-110 TESTED AT [facility] [address] [facility] (test ntar=2435) [facility] [address] T4, [id number] 08:29:00 Test Item Value Reference Range Comments FREE T4 (BEAKER) (test ytfm=175) 0.41 ng/dL 0.70-1.48 BASIC METABOLIC [id number] 08:28:00 Test Item Value Reference Range Comments SODIUM (BEAKER) (test 136 meq/L 136-145 enmz=365) POTASSIUM (BEAKER) (test 3.4 meq/L 3.5-5.1 hyye=803) CHLORIDE (BEAKER) (test 104 meq/L 98-107 vvqr=935) CO2 (BEAKER) (test 27 meq/L 22-29 qwxe=828) BLOOD UREA NITROGEN 18 mg/dL 7-21 (BEAKER) (test jkws=608) CREATININE (BEAKER) (test 1.57 mg/dL 0.57-1.25 dafd=054) GLUCOSE RANDOM (BEAKER) 235 mg/dL 70-105 (test bmez=597) CALCIUM (BEAKER) (test 7.8 mg/dL 8.4-10.2 ftdi=374) EGFR (BEAKER) (test 33 mL/min/1.73 sq m ESTIMATED GFR IS NOT novk=8114) ACCURATE CREATININE CLEARANCE IN PREDICTING GLOMERULAR FILTRATION RATE. ESTIMATED GFR IS NOT APPLICABLE FOR DIALYSIS PATIENTS. Specimen slightly [id number] 08:14:00 Test Item Value Reference Range Comments PHOSPHORUS (BEAKER) (test ixro=763) 2.4 mg/dL 2.3-4.7 [id number] 08:14:00 Test Item Value Reference Range Comments MAGNESIUM (BEAKER) (test xoas=769) 1.5 mg/dL 1.6-2.6 HEPATIC FUNCTION [id number] 08:14:00 Test Item Value Reference Range Comments TOTAL PROTEIN (BEAKER) (test fplv=980) 5.1 gm/dL 6.0-8.3 ALBUMIN (BEAKER) (test sdpy=7531) 2.5 g/dL 3.5-5.0 BILIRUBIN TOTAL (BEAKER) (test apds=217) 1.3 mg/dL 0.2-1.2 BILIRUBIN DIRECT (BEAKER) (test bert=045) 0.7 mg/dL 0.1-0.5 ALKALINE PHOSPHATASE (BEAKER) (test nzuz=830) 107 U/L 40-150 AST (SGOT) (BEAKER) (test cyfx=118) 27 U/L 5-34 ALT (SGPT) (BEAKER) (test toxu=008) 11 U/L 6-55 Specimen slightly ictericTSH/FREE T4 IF [id number] 07:00:00 Test Item Value Reference Range Comments THYROID STIMULATING HORMONE (BEAKER) (test 59.61 uIU/mL 0.35-4.94 mshi=998) PROTHROMBIN [id number] 05:56:00 Test Item Value Reference Range Comments PROTIME (BEAKER) (test qgnc=516) 14.3 seconds 11.9-14.2 INR (BEAKER) (test fgtx=886) 1.2 <=5.9 Effective 04/01/2019: PT Reference Range ChangeNew: 11.9-14.2 Previous: 11.7- 14.7RECOMMENDED COUMADIN/WARFARIN INR THERAPY RANGESSTANDARD DOSE: 2.0-3.0 Includes: PROPHYLAXIS for venous thrombosis, systemic embolization; TREATMENT for venous thrombosis and/or pulmonary embolus.HIGH RISK: Target INR is2.5-3.5 for patients wiht mechanical heart valves.CALCIUM, [id number] 05:43:00 Test Item Value Reference Range Comments CALCIUM IONIZED (BEAKER) (test wicp=985) 0.97 mmol/L 1.12-1.27 PH, BLOOD (BEAKER) (test ylvr=1519) 7.45 CBC W/PLT COUNT & AUTO [id number] 05:21:00 Test Item Value Reference Range Comments WHITE BLOOD CELL COUNT (BEAKER) (test fupb=293) 5.5 K/ L 3.5-10.5 RED BLOOD CELL COUNT (BEAKER) (test tkzr=389) 3.06 M/ L 3.93-5.22 HEMOGLOBIN (BEAKER) (test mjzl=940) 8.3 GM/DL 11.2-15.7 HEMATOCRIT (BEAKER) (test acgz=451) 26.3 % 34.1-44.9 MEAN CORPUSCULAR VOLUME (BEAKER) (test wrjy=920) 85.9 fL 79.4-94.8 MEAN CORPUSCULAR HEMOGLOBIN (BEAKER) (test 27.1 pg 25.6-32.2 ujja=137) MEAN CORPUSCULAR HEMOGLOBIN CONC (BEAKER) (test 31.6 GM/DL 32.2-35.5 hojq=596) RED CELL DISTRIBUTION WIDTH (BEAKER) (test 17.2 % 11.7-14.4 inzp=370) PLATELET COUNT (BEAKER) (test txzn=025) 154 K/CU MM 150-450 MEAN PLATELET VOLUME (BEAKER) (test xnxi=893) 8.9 fL 9.4-12.3 NUCLEATED RED BLOOD CELLS (BEAKER) (test 0 /100 WBC 0-0 tiya=809) NEUTROPHILS RELATIVE PERCENT (BEAKER) (test 61 % wmrv=986) LYMPHOCYTES RELATIVE PERCENT (BEAKER) (test 21 % ofnk=591) MONOCYTES RELATIVE PERCENT (BEAKER) (test 10 % ebyl=391) EOSINOPHILS RELATIVE PERCENT (BEAKER) (test 8 % qreu=615) BASOPHILS RELATIVE PERCENT (BEAKER) (test 1 % aaue=472) NEUTROPHILS ABSOLUTE COUNT (BEAKER) (test 3.33 K/ L 1.56-6.13 yisl=669) LYMPHOCYTES ABSOLUTE COUNT (BEAKER) (test 1.13 K/ L 1.18-3.74 vmpg=017) MONOCYTES ABSOLUTE COUNT (BEAKER) (test 0.55 K/ L 0.24-0.36 ohhq=748) EOSINOPHILS ABSOLUTE COUNT (BEAKER) (test 0.42 K/ L 0.04-0.36 xeaz=775) BASOPHILS ABSOLUTE COUNT (BEAKER) (test 0.06 K/ L 0.01-0.08 cdoj=571) IMMATURE GRANULOCYTES-RELATIVE PERCENT (BEAKER) 0 % 0-1 (test jdio=0320) POCT-GLUCOSE [id number] 21:18:00 Test Item Value Reference Range Comments POC-GLUCOSE METER (BEAKER) 258 mg/dL 70-110 TESTED AT [address] (test ndfg=4900) [facility] [address] POCT-GLUCOSE [id number] 17:42:00 Test Item Value Reference Range Comments POC-GLUCOSE METER (BEAKER) 232 mg/dL 70-110 TESTED AT [address] (test slnb=4380) [facility] [address] POCT-GLUCOSE [id number] 12:51:00 Test Item Value Reference Range Comments POC-GLUCOSE METER (BEAKER) 206 mg/dL 70-110 TESTED AT [address] (test dumv=5679) [facility] [address] POCT-GLUCOSE [id number] 07:53:00 Test Item Value Reference Range Comments POC-GLUCOSE METER (BEAKER) 219 mg/dL 70-110 TESTED AT [address] (test yanr=9102) [facility] [address] COMPREHENSIVE METABOLIC [id number] 06:52:00 Test Item Value Reference Range Comments TOTAL PROTEIN (BEAKER) 4.9 gm/dL 6.0-8.3 (test zslw=403) ALBUMIN (BEAKER) (test 2.3 g/dL 3.5-5.0 gzyj=1190) ALKALINE PHOSPHATASE 119 U/L 40-150 (BEAKER) (test lkni=909) BILIRUBIN TOTAL (BEAKER) 1.1 mg/dL 0.2-1.2 (test sgqh=800) SODIUM (BEAKER) (test 135 meq/L 136-145 rjub=266) POTASSIUM (BEAKER) (test 4.0 meq/L 3.5-5.1 fhmh=138) CHLORIDE (BEAKER) (test 105 meq/L 98-107 cbdu=193) CO2 (BEAKER) (test 26 meq/L 22-29 dtwy=687) BLOOD UREA NITROGEN 18 mg/dL 7-21 (BEAKER) (test ddze=828) CREATININE (BEAKER) (test 1.38 mg/dL 0.57-1.25 woya=443) GLUCOSE RANDOM (BEAKER) 234 mg/dL 70-105 (test szna=611) CALCIUM (BEAKER) (test 7.8 mg/dL 8.4-10.2 idms=679) AST (SGOT) (BEAKER) (test 29 U/L 5-34 jrjk=115) ALT (SGPT) (BEAKER) (test 13 U/L 6-55 avdn=154) EGFR (BEAKER) (test 39 mL/min/1.73 sq m ESTIMATED GFR IS NOT qlse=9207) ACCURATE CREATININE CLEARANCE IN PREDICTING GLOMERULAR FILTRATION RATE. ESTIMATED GFR IS NOT APPLICABLE FOR DIALYSIS PATIENTS. [id number] 06:47:00 Test Item Value Reference Range Comments PHOSPHORUS (BEAKER) (test wdos=962) 2.0 mg/dL 2.3-4.7 [id number] 06:47:00 Test Item Value Reference Range Comments MAGNESIUM (BEAKER) (test sebt=261) 1.7 mg/dL 1.6-2.6 HEPATIC FUNCTION [id number] 06:47:00 Test Item Value Reference Range Comments TOTAL PROTEIN (BEAKER) (test wfeu=573) 4.9 gm/dL 6.0-8.3 ALBUMIN (BEAKER) (test cjhs=5260) 2.3 g/dL 3.5-5.0 BILIRUBIN TOTAL (BEAKER) (test lnyb=480) 1.1 mg/dL 0.2-1.2 BILIRUBIN DIRECT (BEAKER) (test vjkr=330) 0.6 mg/dL 0.1-0.5 ALKALINE PHOSPHATASE (BEAKER) (test ljks=069) 119 U/L 40-150 AST (SGOT) (BEAKER) (test xmcl=546) 29 U/L 5-34 ALT (SGPT) (BEAKER) (test hqdy=412) 13 U/L 6-55 CBC W/PLT COUNT & AUTO [id number] 06:32:00 Test Item Value Reference Range Comments WHITE BLOOD CELL COUNT (BEAKER) (test fohr=390) 5.3 K/ L 3.5-10.5 RED BLOOD CELL COUNT (BEAKER) (test jrxy=357) 3.05 M/ L 3.93-5.22 HEMOGLOBIN (BEAKER) (test rlph=764) 8.3 GM/DL 11.2-15.7 HEMATOCRIT (BEAKER) (test sjny=952) 26.7 % 34.1-44.9 MEAN CORPUSCULAR VOLUME (BEAKER) (test hjpa=578) 87.5 fL 79.4-94.8 MEAN CORPUSCULAR HEMOGLOBIN (BEAKER) (test 27.2 pg 25.6-32.2 ppfp=956) MEAN CORPUSCULAR HEMOGLOBIN CONC (BEAKER) (test 31.1 GM/DL 32.2-35.5 wroz=391) RED CELL DISTRIBUTION WIDTH (BEAKER) (test 17.4 % 11.7-14.4 jtvl=867) PLATELET COUNT (BEAKER) (test tpuc=169) 161 K/CU MM 150-450 MEAN PLATELET VOLUME (BEAKER) (test nebj=468) 8.8 fL 9.4-12.3 NUCLEATED RED BLOOD CELLS (BEAKER) (test 0 /100 WBC 0-0 jcgc=586) NEUTROPHILS RELATIVE PERCENT (BEAKER) (test 52 % efeh=472) LYMPHOCYTES RELATIVE PERCENT (BEAKER) (test 27 % tsmz=055) MONOCYTES RELATIVE PERCENT (BEAKER) (test 9 % ebjw=938) EOSINOPHILS RELATIVE PERCENT (BEAKER) (test 10 % hkaq=741) BASOPHILS RELATIVE PERCENT (BEAKER) (test 2 % mcwx=343) NEUTROPHILS ABSOLUTE COUNT (BEAKER) (test 2.75 K/ L 1.56-6.13 slmr=898) LYMPHOCYTES ABSOLUTE COUNT (BEAKER) (test 1.42 K/ L 1.18-3.74 ddpu=861) MONOCYTES ABSOLUTE COUNT (BEAKER) (test 0.48 K/ L 0.24-0.36 quej=517) EOSINOPHILS ABSOLUTE COUNT (BEAKER) (test 0.54 K/ L 0.04-0.36 syra=170) BASOPHILS ABSOLUTE COUNT (BEAKER) (test 0.08 K/ L 0.01-0.08 buxi=044) IMMATURE GRANULOCYTES-RELATIVE PERCENT (BEAKER) 0 % 0-1 (test rwwt=3544) B-TYPE NATRIURETIC FACTOR (BNP)2019-05-20 06:27:00 Test Item Value Reference Range Comments B-TYPE NATRIURETIC PEPTIDE (BEAKER) (test 274 pg/mL 0-100 kkcw=401) VANCOMYCIN LEVEL, [id number] 06:16:00 Test Item Value Reference Range Comments VANCOMYCIN TROUGH (BEAKER) (test bhfd=311) 5.8 ug/mL 10.0-20.0 [id number] 06:11:00 Test Item Value Reference Range Comments D-DIMER QUANTITATIVE (BEAKER) (test gzdr=426) 3.95 MG/L FEU <0.50 Intended Use: The [...] exclusion of thrombosis is within 95-100% range.CALCIUM, [id number] 06:04:00 Test Item Value Reference Range Comments CALCIUM IONIZED (BEAKER) (test qjtv=873) 1.06 mmol/L 1.12-1.27 PH, BLOOD (BEAKER) (test bmhr=2996) 7.43 PROTHROMBIN [id number] 06:02:00 Test Item Value Reference Range Comments PROTIME (BEAKER) (test irde=292) 13.8 seconds 11.9-14.2 INR (BEAKER) (test pgld=629) 1.1 <=5.9 Effective 04/01/2019: PT Reference Range ChangeNew: 11.9-14.2 Previous: 11.7- 14.7RECOMMENDED COUMADIN/WARFARIN INR THERAPY RANGESSTANDARD DOSE: 2.0-3.0 Includes: PROPHYLAXIS for venous thrombosis, systemic embolization; TREATMENT for venous thrombosis and/or pulmonary embolus.HIGH RISK: Target INR is2.5-3.5 for patients wiht mechanical heart valves.TROPONIN [id number] 02:44:00 Test Item Value Reference Range Comments TROPONIN I (BEAKER) (test cmgn=496) 0.01 ng/mL 0.00-0.03 Troponin I (TnI) levels [...] acute neurological disease, and persistent tachyarrhythmia.PROTEIN, RANDOM [id number] 01:50:00 Test Item Value Reference Range Comments PROTEIN, URINE (BEAKER) (test hzzr=5512) 20 mg/dL 0-14 CREATININE, RANDOM [id number] 01:49:00 Test Item Value Reference Range Comments CREATININE URINE (BEAKER) (test ntwx=440) 184.6 mg/dL Reference Range: No NormalsRAD, CHEST, 1 VIEW, NON [id number] 01:49: 00Reason for exam:->anasarcaShould this be performed [...] Verified Date/Time: 05/20/2019 01:49 :05 Reading Location: [address] Reading Room POCT-GLUCOSE [id number] 00:36:00 Test Item Value Reference Range Comments POC-GLUCOSE METER (BEAKER) 326 mg/dL 70-110 TESTED AT [facility] [address] [place] [address] (test odpo=2835) [facility] [address] URINALYSIS W/ [id number] 00:02:00 Test Item Value Reference Range Comments COLOR (BEAKER) (test tvdr=241) Yellow CLARITY (BEAKER) (test lszs=100) Clear SPECIFIC GRAVITY UA (BEAKER) (test gbfy=548) 1.020 1.001-1.035 PH UA (BEAKER) (test cknv=080) 5.5 5.0-8.0 PROTEIN UA (BEAKER) (test wynr=081) 20 mg/dL Negative GLUCOSE UA (BEAKER) (test zlpk=658) 300 mg/dL Negative KETONES UA (BEAKER) (test wuan=633) Negative Negative BILIRUBIN UA (BEAKER) (test mlne=687) Negative Negative BLOOD UA (BEAKER) (test qkff=143) Negative Negative NITRITE UA (BEAKER) (test nwob=843) Negative Negative LEUKOCYTE ESTERASE UA (BEAKER) (test xjtm=387) Small Negative UROBILINOGEN UA (BEAKER) (test lirw=245) 2.0 mg/dL 0.2-1.0 RBC UA (BEAKER) (test ytob=886) 2 /HPF WBC UA (BEAKER) (test tjzo=476) 2 /HPF MUCUS (BEAKER) (test mmol=9560) Rare SQUAMOUS EPITHELIAL (BEAKER) (test etut=606) 6 /HPF HYALINE CASTS (BEAKER) (test tieo=843) 5 /LPF SOURCE(BEAKER) (test rwma=1446) Urine, Voided T4, [id number] 22:29:00 Test Item Value Reference Range Comments FREE T4 (BEAKER) (test yqqc=818) 0.44 ng/dL 0.70-1.48 HEMOGLOBIN [id number] 22:15:00 Test Item Value Reference Range Comments HEMOGLOBIN A1C (BEAKER) (test hcfg=955) 8.6 % 4.3-6.1 TSH/FREE T4 IF [id number] 21:43:00 Test Item Value Reference Range Comments THYROID STIMULATING HORMONE (BEAKER) (test 72.01 uIU/mL 0.35-4.94 ipmr=193) B-TYPE NATRIURETIC FACTOR (BNP)2019-05-19 21:29:00 Test Item Value Reference Range Comments B-TYPE NATRIURETIC PEPTIDE (BEAKER) (test 222 pg/mL 0-100 dejl=526) PROTHROMBIN [id number] 21:26:00 Test Item Value Reference Range Comments PROTIME (BEAKER) (test zpzh=558) 13.6 seconds 11.9-14.2 INR (BEAKER) (test hrxo=500) 1.1 <=5.9 Effective 04/01/2019: PT Reference Range ChangeNew: 11.9-14.2 Previous: 11.7- 14.7RECOMMENDED COUMADIN/WARFARIN INR THERAPY RANGESSTANDARD DOSE: 2.0-3.0 Includes: PROPHYLAXIS for venous thrombosis, systemic embolization; TREATMENT for venous thrombosis and/or pulmonary embolus.HIGH RISK: Target INR is2.5-3.5 for patients wiht mechanical heart valves.TROPONIN [id number] 21:26:00 Test Item Value Reference Range Comments TROPONIN I (BEAKER) (test qbxf=380) < ng/mL 0.00-0.03 Troponin I (TnI) levels [...] failure, acidosis, acute neurological disease, and persistent tachyarrhythmia.[id number] 21:18:00 Test Item Value Reference Range Comments MAGNESIUM (BEAKER) (test 1.8 mg/dL 1.6-2.6 Specimen markedly hemolyzed sydh=726) [id number] 21:18:00 Test Item Value Reference Range Comments PHOSPHORUS (BEAKER) (test 2.1 mg/dL 2.3-4.7 Specimen markedly hemolyzed minc=637) BASIC METABOLIC [id number] 21:18:00 Test Item Value Reference Range Comments SODIUM (BEAKER) (test 136 meq/L 136-145 jajz=570) POTASSIUM (BEAKER) (test 4.8 meq/L 3.5-5.1 Specimen markedly ubas=174) hemolyzed CHLORIDE (BEAKER) (test 103 meq/L 98-107 tlex=972) CO2 (BEAKER) (test 29 meq/L 22-29 shtc=586) BLOOD UREA NITROGEN 17 mg/dL 7-21 (BEAKER) (test zlct=050) CREATININE (BEAKER) (test 1.33 mg/dL 0.57-1.25 Specimen markedly mxet=240) hemolyzed GLUCOSE RANDOM (BEAKER) 248 mg/dL 70-105 (test hhsi=189) CALCIUM (BEAKER) (test 8.1 mg/dL 8.4-10.2 jzdh=413) EGFR (BEAKER) (test 41 mL/min/1.73 sq m ESTIMATED GFR IS NOT tfnf=0209) ACCURATE CREATININE CLEARANCE IN PREDICTING GLOMERULAR FILTRATION RATE. ESTIMATED GFR IS NOT APPLICABLE FOR DIALYSIS PATIENTS. HEPATIC FUNCTION [id number] 21:18:00 Test Item Value Reference Range Comments TOTAL PROTEIN (BEAKER) (test 6.4 gm/dL 6.0-8.3 Specimen markedly hemolyzed tddy=274) ALBUMIN (BEAKER) (test 2.5 g/dL 3.5-5.0 Specimen markedly hemolyzed wwtk=7663) BILIRUBIN TOTAL (BEAKER) (test 1.3 mg/dL 0.2-1.2 Specimen markedly hemolyzed tihm=640) BILIRUBIN DIRECT (BEAKER) (test 0.3 mg/dL 0.1-0.5 Specimen markedly hemolyzed kfgt=359) ALKALINE PHOSPHATASE (BEAKER) 143 U/L 40-150 (test sglu=209) AST (SGOT) (BEAKER) (test 61 U/L 5-34 Specimen markedly hemolyzed vjiq=216) ALT (SGPT) (BEAKER) (test 15 U/L 6-55 Specimen markedly hemolyzed zhrf=901) CBC W/PLT COUNT & AUTO [id number] 20:58:00 Test Item Value Reference Range Comments WHITE BLOOD CELL COUNT (BEAKER) (test fdvw=120) 6.0 K/ L 3.5-10.5 RED BLOOD CELL COUNT (BEAKER) (test xtha=049) 3.57 M/ L 3.93-5.22 HEMOGLOBIN (BEAKER) (test nlsi=231) 9.8 GM/DL 11.2-15.7 HEMATOCRIT (BEAKER) (test jifs=988) 30.6 % 34.1-44.9 MEAN CORPUSCULAR VOLUME (BEAKER) (test mpxi=148) 85.7 fL 79.4-94.8 MEAN CORPUSCULAR HEMOGLOBIN (BEAKER) (test 27.5 pg 25.6-32.2 bjjm=277) MEAN CORPUSCULAR HEMOGLOBIN CONC (BEAKER) (test 32.0 GM/DL 32.2-35.5 pqxo=820) RED CELL DISTRIBUTION WIDTH (BEAKER) (test 17.4 % 11.7-14.4 geex=469) PLATELET COUNT (BEAKER) (test tkle=397) 199 K/CU MM 150-450 MEAN PLATELET VOLUME (BEAKER) (test tlrg=374) 9.1 fL 9.4-12.3 NUCLEATED RED BLOOD CELLS (BEAKER) (test 0 /100 WBC 0-0 zivf=206) NEUTROPHILS RELATIVE PERCENT (BEAKER) (test 53 % djio=914) LYMPHOCYTES RELATIVE PERCENT (BEAKER) (test 27 % avrb=482) MONOCYTES RELATIVE PERCENT (BEAKER) (test 8 % rzpy=591) EOSINOPHILS RELATIVE PERCENT (BEAKER) (test 10 % tnrp=933) BASOPHILS RELATIVE PERCENT (BEAKER) (test 1 % oukg=813) NEUTROPHILS ABSOLUTE COUNT (BEAKER) (test 3.21 K/ L 1.56-6.13 ambr=488) LYMPHOCYTES ABSOLUTE COUNT (BEAKER) (test 1.62 K/ L 1.18-3.74 xsrw=689) MONOCYTES ABSOLUTE COUNT (BEAKER) (test 0.50 K/ L 0.24-0.36 xomy=385) EOSINOPHILS ABSOLUTE COUNT (BEAKER) (test 0.62 K/ L 0.04-0.36 rhzv=197) BASOPHILS ABSOLUTE COUNT (BEAKER) (test 0.08 K/ L 0.01-0.08 addi=001) IMMATURE GRANULOCYTES-RELATIVE PERCENT (BEAKER) 0 % 0-1 (test fcba=0208) BODY FLUID CULTURE + GRAM [id number] 13:44:00 Test Item Value Reference Range Comments CULTURE (BEAKER) (test oemy=1440) No growth GRAM STAIN RESULT (BEAKER) (test <1+ White blood cells seen nalt=3693) GRAM STAIN RESULT (BEAKER) (test No organisms seen plzi=01304) BODY FLUID CULTURE + GRAM [id number] 14:06:00 Test Item Value Reference Range Comments CULTURE (BEAKER) (test htoj=8200) No growth GRAM STAIN RESULT (BEAKER) (test No White blood cells seen jzqh=3544) GRAM STAIN RESULT (BEAKER) (test No organisms seen beoj=11847) BASIC METABOLIC [id number] 08:41:00 Test Item Value Reference Range Comments SODIUM (BEAKER) (test 132 meq/L 136-145 awnc=924) POTASSIUM (BEAKER) (test 4.4 meq/L 3.5-5.1 gqrw=292) CHLORIDE (BEAKER) (test 100 meq/L 98-107 lezi=663) CO2 (BEAKER) (test 25 meq/L 22-29 ykgv=869) BLOOD UREA NITROGEN 53 mg/dL 7-21 (BEAKER) (test rjtx=393) CREATININE (BEAKER) (test 1.80 mg/dL 0.57-1.25 oxpl=874) GLUCOSE RANDOM (BEAKER) 211 mg/dL 70-105 (test jprn=778) CALCIUM (BEAKER) (test 9.0 mg/dL 8.4-10.2 bhve=476) EGFR (BEAKER) (test 29 mL/min/1.73 sq m ESTIMATED GFR IS NOT uudv=5557) ACCURATE CREATININE CLEARANCE IN PREDICTING GLOMERULAR FILTRATION RATE. ESTIMATED GFR IS NOT APPLICABLE FOR DIALYSIS PATIENTS. POCT-GLUCOSE [id number] 08:16:00 Test Item Value Reference Range Comments POC-GLUCOSE METER (BEAKER) 213 mg/dL 70-110 TESTED AT [facility] [address] [place] [address] (test dtns=2522) [facility] [address] HEPATIC FUNCTION [id number] 06:43:00 Test Item Value Reference Range Comments TOTAL PROTEIN (BEAKER) (test wkzg=857) 5.7 gm/dL 6.0-8.3 ALBUMIN (BEAKER) (test gnqb=7597) 4.2 g/dL 3.5-5.0 BILIRUBIN TOTAL (BEAKER) (test zcob=711) 1.6 mg/dL 0.2-1.2 BILIRUBIN DIRECT (BEAKER) (test qozn=695) 0.8 mg/dL 0.1-0.5 ALKALINE PHOSPHATASE (BEAKER) (test wloa=793) 95 U/L 40-150 AST (SGOT) (BEAKER) (test ialg=019) 71 U/L 5-34 ALT (SGPT) (BEAKER) (test kucu=267) 68 U/L 6-55 POCT-GLUCOSE [id number] 22:00:00 Test Item Value Reference Range Comments POC-GLUCOSE METER (BEAKER) 341 mg/dL 70-110 Notified ALEXI ENNIS/TESTED AT [facility] (test eoju=1926) [address] [place] [address] BODY FLUID CELL COUNT WITH [id number] 20:00:00 Test Item Value Reference Range Comments APPEARANCE FLUID (BEAKER) (test fihe=037) Hazy Clear COLOR FLUID (BEAKER) (test mgud=821) Straw Colorless, Straw RBC FLUID (BEAKER) (test xmix=027) 4000 /cu mm <=1 ADJUSTED WBC FLUID (BEAKER) (test tyit=8785) 140 /cu mm <=5 LINING CELLS (BEAKER) (test zfru=4278) 1 /cu mm <=1 NEUTROPHILS FLUID (BEAKER) (test oawo=0020) 1 % LYMPHS FLUID (BEAKER) (test mbuv=832) 30 % MONO/MACROPHAGE FLUID (BEAKER) (test owym=207) 69 % EOSINOPHILS FLUID (BEAKER) (test igxl=218) 0 % BASO FLUID (BEAKER) (test roas=358) 0 % CONTAINER BODY FLUID (BEAKER) (test ilxh=7909) EDTA Tube U/S, [id number] 16:42:00Reason for exam:->ascites limited 6 litersFINAL REPORT PROCEDURE: Ultrasound-guided paracentesis. INDICATION: 59-year-old woman with ascites. DESCRIPTION: After obtaining informed written consent, ultrasound scan of the abdomen identified ascites in the right lower quadrant. The overlying skin was prepped and draped in the usual, sterile fashion and local 2% lidocaine anesthesia was administered. A 5 [place] catheter was advanced into the peritoneal cavity and 6000 cc of serous fluid was removed. The catheter was removed without immediate complication. Samples were sent for analysis. IMPRESSION:Uncomplicated ultrasound-guided paracentesis with 6000 cc fluid removed. Signed: Antwon Bose MDReport Verified Date/Time: 02/24/2019 16:42:07 Reading Location: [address] Ultrasound Reading Room POCT-GLUCOSE [id number] 13:07:00 Test Item Value Reference Range Comments POC-GLUCOSE METER (BEAKER) 290 mg/dL 70-110 TESTED AT [address] (test lnsu=1176) [facility] [address] PROTHROMBIN [id number] 12:01:00 Test Item Value Reference Range Comments PROTIME (BEAKER) (test tlqn=736) 14.3 seconds 11.7-14.7 INR (BEAKER) (test kblu=271) 1.1 <=5.9 RECOMMENDED COUMADIN/WARFARIN INR THERAPY RANGESSTANDARD DOSE: 2.0 - 3.0 Includes: PROPHYLAXIS forvenous thrombosis, systemic embolization; TREATMENT for venous thrombosis and/or pulmonary embolus.HIGH RISK: Target INR is 2.5-3.5 for patients with mechanical heart valves.[id number] 12:01:00 Test Item Value Reference Range Comments PARTIAL THROMBOPLASTIN TIME (BEAKER) (test 32.5 seconds 22.5-36.0 gnoh=194) POCT-GLUCOSE [id number] 08:39:00 Test Item Value Reference Range Comments POC-GLUCOSE METER (BEAKER) 279 mg/dL 70-110 TESTED AT [facility] [address] [facility] (test kkye=2960) [place] [address] CALCIUM, [id number] 07:04:00 Test Item Value Reference Range Comments CALCIUM IONIZED (BEAKER) (test kwoh=112) 1.08 mmol/L 1.12-1.27 PH, BLOOD (BEAKER) (test qmsr=0864) 7.38 COMPREHENSIVE METABOLIC [id number] 05:59:00 Test Item Value Reference Range Comments TOTAL PROTEIN (BEAKER) 5.5 gm/dL 6.0-8.3 (test ajpc=772) ALBUMIN (BEAKER) (test 3.8 g/dL 3.5-5.0 ubdj=9853) ALKALINE PHOSPHATASE 125 U/L 40-150 (BEAKER) (test cskr=411) BILIRUBIN TOTAL (BEAKER) 0.9 mg/dL 0.2-1.2 (test oyup=818) SODIUM (BEAKER) (test 130 meq/L 136-145 nezd=236) POTASSIUM (BEAKER) (test 4.0 meq/L 3.5-5.1 link=284) CHLORIDE (BEAKER) (test 99 meq/L 98-107 qrrw=446) CO2 (BEAKER) (test 23 meq/L 22-29 daov=827) BLOOD UREA NITROGEN 51 mg/dL 7-21 (BEAKER) (test itfo=182) CREATININE (BEAKER) (test 2.07 mg/dL 0.57-1.25 lgpu=728) GLUCOSE RANDOM (BEAKER) 320 mg/dL 70-105 (test drdy=116) CALCIUM (BEAKER) (test 8.7 mg/dL 8.4-10.2 smyx=522) AST (SGOT) (BEAKER) (test 111 U/L 5-34 nygg=222) ALT (SGPT) (BEAKER) (test 98 U/L 6-55 wqjg=535) EGFR (BEAKER) (test 24 mL/min/1.73 sq m ESTIMATED GFR IS NOT bloh=8813) ACCURATE CREATININE CLEARANCE IN PREDICTING GLOMERULAR FILTRATION RATE. ESTIMATED GFR IS NOT APPLICABLE FOR DIALYSIS PATIENTS. [id number] 05:58:00 Test Item Value Reference Range Comments PHOSPHORUS (BEAKER) (test embb=392) 2.1 mg/dL 2.3-4.7 [id number] 05:58:00 Test Item Value Reference Range Comments MAGNESIUM (BEAKER) (test falt=827) 2.3 mg/dL 1.6-2.6 HEPATIC FUNCTION [id number] 05:58:00 Test Item Value Reference Range Comments TOTAL PROTEIN (BEAKER) (test npuj=088) 5.5 gm/dL 6.0-8.3 ALBUMIN (BEAKER) (test zuee=6207) 3.8 g/dL 3.5-5.0 BILIRUBIN TOTAL (BEAKER) (test jnke=290) 0.9 mg/dL 0.2-1.2 BILIRUBIN DIRECT (BEAKER) (test bopu=495) 0.4 mg/dL 0.1-0.5 ALKALINE PHOSPHATASE (BEAKER) (test zjmz=777) 125 U/L 40-150 AST (SGOT) (BEAKER) (test rarf=869) 111 U/L 5-34 ALT (SGPT) (BEAKER) (test qtpe=563) 98 U/L 6-55 CBC W/PLT COUNT & AUTO [id number] 05:29:00 Test Item Value Reference Range Comments WHITE BLOOD CELL COUNT (BEAKER) (test feel=642) 5.9 K/ L 3.5-10.5 RED BLOOD CELL COUNT (BEAKER) (test znqd=118) 3.00 M/ L 3.93-5.22 HEMOGLOBIN (BEAKER) (test mrov=174) 8.5 GM/DL 11.2-15.7 HEMATOCRIT (BEAKER) (test dzxw=525) 25.3 % 34.1-44.9 MEAN CORPUSCULAR VOLUME (BEAKER) (test agle=434) 84.3 fL 79.4-94.8 MEAN CORPUSCULAR HEMOGLOBIN (BEAKER) (test 28.3 pg 25.6-32.2 dmob=292) MEAN CORPUSCULAR HEMOGLOBIN CONC (BEAKER) (test 33.6 GM/DL 32.2-35.5 qkgl=146) RED CELL DISTRIBUTION WIDTH (BEAKER) (test 14.8 % 11.7-14.4 ckuz=093) PLATELET COUNT (BEAKER) (test srox=580) 146 K/CU MM 150-450 MEAN PLATELET VOLUME (BEAKER) (test lwpu=972) 10.1 fL 9.4-12.3 NUCLEATED RED BLOOD CELLS (BEAKER) (test 0 /100 WBC 0-0 mrps=240) NEUTROPHILS RELATIVE PERCENT (BEAKER) (test 67 % qwtz=940) LYMPHOCYTES RELATIVE PERCENT (BEAKER) (test 16 % svyb=642) MONOCYTES RELATIVE PERCENT (BEAKER) (test 10 % rmkl=545) EOSINOPHILS RELATIVE PERCENT (BEAKER) (test 6 % jdtv=819) BASOPHILS RELATIVE PERCENT (BEAKER) (test 1 % yoje=941) NEUTROPHILS ABSOLUTE COUNT (BEAKER) (test 3.94 K/ L 1.56-6.13 bsti=548) LYMPHOCYTES ABSOLUTE COUNT (BEAKER) (test 0.96 K/ L 1.18-3.74 ptwe=401) MONOCYTES ABSOLUTE COUNT (BEAKER) (test 0.57 K/ L 0.24-0.36 hwsh=161) EOSINOPHILS ABSOLUTE COUNT (BEAKER) (test 0.37 K/ L 0.04-0.36 wfpd=121) BASOPHILS ABSOLUTE COUNT (BEAKER) (test 0.03 K/ L 0.01-0.08 ejgj=426) IMMATURE GRANULOCYTES-RELATIVE PERCENT (BEAKER) 0 % 0-1 (test mrea=1271) POCT-GLUCOSE [id number] 21:01:00 Test Item Value Reference Range Comments POC-GLUCOSE METER (BEAKER) 371 mg/dL 70-110 Notified ALEXI ENNIS/TESTED AT [facility] (test qdmm=9649) [address] [place] [address] POCT-GLUCOSE [id number] 17:30:00 Test Item Value Reference Range Comments POC-GLUCOSE METER (BEAKER) 389 mg/dL 70-110 TESTED AT [address] (test fazt=7596) [facility] [address] POCT-GLUCOSE [id number] 08:50:00 Test Item Value Reference Range Comments POC-GLUCOSE METER (BEAKER) 303 mg/dL 70-110 TESTED AT [address] (test xxdx=8946) [facility] [address] POCT-GLUCOSE [id number] 08:27:00 Test Item Value Reference Range Comments POC-GLUCOSE METER (BEAKER) 342 mg/dL 70-110 Will Repeat Test/TESTED AT (test encf=4168) [facility] [address] [facility] [address] CALCIUM, [id number] 07:20:00 Test Item Value Reference Range Comments CALCIUM IONIZED (BEAKER) (test rpqz=880) 0.98 mmol/L 1.12-1.27 PH, BLOOD (BEAKER) (test mucj=3863) 7.41 COMPREHENSIVE METABOLIC [id number] 07:05:00 Test Item Value Reference Range Comments TOTAL PROTEIN (BEAKER) 5.0 gm/dL 6.0-8.3 (test whka=188) ALBUMIN (BEAKER) (test 3.3 g/dL 3.5-5.0 zkkf=5633) ALKALINE PHOSPHATASE 126 U/L 40-150 (BEAKER) (test xldp=195) BILIRUBIN TOTAL (BEAKER) 1.2 mg/dL 0.2-1.2 (test fnil=769) SODIUM (BEAKER) (test 128 meq/L 136-145 ztmi=160) POTASSIUM (BEAKER) (test 4.1 meq/L 3.5-5.1 rpug=609) CHLORIDE (BEAKER) (test 98 meq/L 98-107 duar=662) CO2 (BEAKER) (test 20 meq/L 22-29 jiyw=815) BLOOD UREA NITROGEN 43 mg/dL 7-21 (BEAKER) (test bpuc=546) CREATININE (BEAKER) (test 2.39 mg/dL 0.57-1.25 nnpo=816) GLUCOSE RANDOM (BEAKER) 305 mg/dL 70-105 (test eobu=876) CALCIUM (BEAKER) (test 8.1 mg/dL 8.4-10.2 awlu=914) AST (SGOT) (BEAKER) (test 173 U/L 5-34 poqh=339) ALT (SGPT) (BEAKER) (test 143 U/L 6-55 qeht=698) EGFR (BEAKER) (test 21 mL/min/1.73 sq m ESTIMATED GFR IS NOT djpj=3159) ACCURATE CREATININE CLEARANCE IN PREDICTING GLOMERULAR FILTRATION RATE. ESTIMATED GFR IS NOT APPLICABLE FOR DIALYSIS PATIENTS. [id number] 06:56:00 Test Item Value Reference Range Comments PHOSPHORUS (BEAKER) (test ggae=548) 2.5 mg/dL 2.3-4.7 [id number] 06:56:00 Test Item Value Reference Range Comments MAGNESIUM (BEAKER) (test tjdy=479) 1.9 mg/dL 1.6-2.6 HEPATIC FUNCTION [id number] 06:56:00 Test Item Value Reference Range Comments TOTAL PROTEIN (BEAKER) (test wqey=172) 5.0 gm/dL 6.0-8.3 ALBUMIN (BEAKER) (test zbhz=0845) 3.3 g/dL 3.5-5.0 BILIRUBIN TOTAL (BEAKER) (test ijjv=170) 1.2 mg/dL 0.2-1.2 BILIRUBIN DIRECT (BEAKER) (test orde=752) 0.6 mg/dL 0.1-0.5 ALKALINE PHOSPHATASE (BEAKER) (test hugj=348) 126 U/L 40-150 AST (SGOT) (BEAKER) (test gxyx=493) 173 U/L 5-34 ALT (SGPT) (BEAKER) (test ikzi=156) 143 U/L 6-55 CBC W/PLT COUNT & AUTO [id number] 06:17:00 Test Item Value Reference Range Comments WHITE BLOOD CELL COUNT (BEAKER) (test fuub=115) 5.7 K/ L 3.5-10.5 RED BLOOD CELL COUNT (BEAKER) (test rref=682) 3.40 M/ L 3.93-5.22 HEMOGLOBIN (BEAKER) (test wtvz=958) 9.2 GM/DL 11.2-15.7 HEMATOCRIT (BEAKER) (test onhd=920) 29.1 % 34.1-44.9 MEAN CORPUSCULAR VOLUME (BEAKER) (test thpy=821) 85.6 fL 79.4-94.8 MEAN CORPUSCULAR HEMOGLOBIN (BEAKER) (test 27.1 pg 25.6-32.2 orqw=555) MEAN CORPUSCULAR HEMOGLOBIN CONC (BEAKER) (test 31.6 GM/DL 32.2-35.5 unmm=245) RED CELL DISTRIBUTION WIDTH (BEAKER) (test 14.7 % 11.7-14.4 mfud=041) PLATELET COUNT (BEAKER) (test rgot=932) 128 K/CU MM 150-450 MEAN PLATELET VOLUME (BEAKER) (test xjmc=521) 10.3 fL 9.4-12.3 NUCLEATED RED BLOOD CELLS (BEAKER) (test 0 /100 WBC 0-0 sefx=802) NEUTROPHILS RELATIVE PERCENT (BEAKER) (test 69 % vpax=933) LYMPHOCYTES RELATIVE PERCENT (BEAKER) (test 15 % hyfl=663) MONOCYTES RELATIVE PERCENT (BEAKER) (test 9 % fdar=489) EOSINOPHILS RELATIVE PERCENT (BEAKER) (test 6 % ivvt=887) BASOPHILS RELATIVE PERCENT (BEAKER) (test 1 % pwli=771) NEUTROPHILS ABSOLUTE COUNT (BEAKER) (test 3.91 K/ L 1.56-6.13 cgnf=911) LYMPHOCYTES ABSOLUTE COUNT (BEAKER) (test 0.86 K/ L 1.18-3.74 hitq=057) MONOCYTES ABSOLUTE COUNT (BEAKER) (test 0.51 K/ L 0.24-0.36 obqv=135) EOSINOPHILS ABSOLUTE COUNT (BEAKER) (test 0.35 K/ L 0.04-0.36 yghx=475) BASOPHILS ABSOLUTE COUNT (BEAKER) (test 0.03 K/ L 0.01-0.08 dzxj=144) IMMATURE GRANULOCYTES-RELATIVE PERCENT (BEAKER) 0 % 0-1 (test tixm=5499) BODY FLUID CELL COUNT WITH [id number] 17:06:00 Test Item Value Reference Range Comments APPEARANCE FLUID (BEAKER) (test zvpb=012) Hazy Clear COLOR FLUID (BEAKER) (test hcqb=977) Yellow Colorless, Straw RBC FLUID (BEAKER) (test vnyw=432) 6000 /cu mm <=1 ADJUSTED WBC FLUID (BEAKER) (test cdaw=0846) 125 /cu mm <=5 LINING CELLS (BEAKER) (test urzv=7217) 2 /cu mm <=1 NEUTROPHILS FLUID (BEAKER) (test mcgf=5903) 6 % LYMPHS FLUID (BEAKER) (test ddxs=520) 21 % MONO/MACROPHAGE FLUID (BEAKER) (test pidr=125) 73 % EOSINOPHILS FLUID (BEAKER) (test pmio=063) 0 % BASO FLUID (BEAKER) (test itrn=429) 0 % CONTAINER BODY FLUID (BEAKER) (test euyo=4482) EDTA Tube POCT-GLUCOSE [id number] 16:40:00 Test Item Value Reference Range Comments POC-GLUCOSE METER (BEAKER) 396 mg/dL 70-110 TESTED AT [facility] [address] (test tqwt=3606) [facility] [address] U/S, [id number] 16:12:00limit to 6 LReason for exam:->ascites, limit to 6 LFINAL REPORT Paracentesis dated 02/22/2019 Procedure: Ultrasound-guided paracentesis. Preprocedure diagnosis: Ascites Postprocedure diagnosis: Ascites Conscious sedation: None. Radiologist: Giovanni Haas M.D. Folder And Notcher: None Anesthesia: 1% Xylocaine mixed with sodium bicarbonate local anesthesia. Technique: After obtaining informed consent, ultrasound-guided paracentesis was performed under usual sterile technique. Using a 5 divehi drainage catheter, puncture was made in the right lower quadrant abdomen. Approximately 6000 cc of serous fluid was removed. Patient tolerated the procedure well without complication. Complication: None Graft/ Implant: None Estimated Blood Loss: None Impression: Ultrasound-guided paracentesis. Signed: Giovanni Haas Verified Date/Time: 02/22/2019 16:12 :23 Reading Location: [facility] C013Y CT Body Reading Room RAD, CHEST, 1 VIEW, NON [id number] 12:22:00Reason for exam:->coughShould this be performed at [...] Verified Date/ Time: 02/22/2019 12:22:24 Reading Location: [facility] C013W Consult Reading Room POCT-GLUCOSE [id number] 07:55:00 Test Item Value Reference Range Comments POC-GLUCOSE METER (BEAKER) 317 mg/dL 70-110 TESTED AT [address] (test pecx=0181) [facility] [address] POCT-GLUCOSE [id number] 07:24:00 Test Item Value Reference Range Comments POC-GLUCOSE METER (BEAKER) 386 mg/dL 70-110 Notified ALEXI ENNIS/TESTED AT [facility] (test jmdd=7513) [address] [place] [address] POCT-GLUCOSE [id number] 07:24:00 Test Item Value Reference Range Comments POC-GLUCOSE METER (BEAKER) 295 mg/dL 70-110 TESTED AT [address] (test uvlh=8140) [facility] [address] POCT-GLUCOSE [id number] 07:24:00 Test Item Value Reference Range Comments POC-GLUCOSE METER (BEAKER) 256 mg/dL 70-110 TESTED AT [address] (test mrze=0844) [facility] [address] BASIC METABOLIC [id number] 06:50:00 Test Item Value Reference Range Comments SODIUM (BEAKER) (test 128 meq/L 136-145 dfon=292) POTASSIUM (BEAKER) (test 4.0 meq/L 3.5-5.1 fuqh=932) CHLORIDE (BEAKER) (test 100 meq/L 98-107 nwmg=924) CO2 (BEAKER) (test 21 meq/L 22-29 qmii=418) BLOOD UREA NITROGEN 40 mg/dL 7-21 (BEAKER) (test hhlk=230) CREATININE (BEAKER) (test 2.62 mg/dL 0.57-1.25 ymju=192) GLUCOSE RANDOM (BEAKER) 351 mg/dL 70-105 (test qgrw=420) CALCIUM (BEAKER) (test 8.0 mg/dL 8.4-10.2 azyj=037) EGFR (BEAKER) (test 19 mL/min/1.73 sq m ESTIMATED GFR IS NOT wtxu=1344) ACCURATE CREATININE CLEARANCE IN PREDICTING GLOMERULAR FILTRATION RATE. ESTIMATED GFR IS NOT APPLICABLE FOR DIALYSIS PATIENTS. [id number] 06:46:00 Test Item Value Reference Range Comments MAGNESIUM (BEAKER) (test ajhl=415) 1.9 mg/dL 1.6-2.6 BLOOD [id number] 20:01:00 Test Item Value Reference Range Comments CULTURE (BEAKER) (test rxbs=4808) No growth in 5 days BLOOD [id number] 20:01:00 Test Item Value Reference Range Comments CULTURE (BEAKER) (test iwtf=5800) No growth in 5 days POCT-GLUCOSE [id number] 08:39:00 Test Item Value Reference Range Comments POC-GLUCOSE METER (BEAKER) 300 mg/dL 70-110 TESTED AT [facility] [address] (test myqr=7745) [facility] [address] POCT-GLUCOSE [id number] 08:39:00 Test Item Value Reference Range Comments POC-GLUCOSE METER (BEAKER) 330 mg/dL 70-110 Notified ALEXI ENNIS/TESTED AT [facility] (test udbp=3917) [address] [facility] [address] COMPREHENSIVE METABOLIC [id number] 08:25:00 Test Item Value Reference Range Comments TOTAL PROTEIN (BEAKER) 4.9 gm/dL 6.0-8.3 (test zlie=622) ALBUMIN (BEAKER) (test 3.3 g/dL 3.5-5.0 vrpk=0893) ALKALINE PHOSPHATASE 129 U/L 40-150 (BEAKER) (test fpor=535) BILIRUBIN TOTAL (BEAKER) 1.2 mg/dL 0.2-1.2 (test yarl=161) SODIUM (BEAKER) (test 130 meq/L 136-145 pnob=749) POTASSIUM (BEAKER) (test 4.5 meq/L 3.5-5.1 kaji=255) CHLORIDE (BEAKER) (test 102 meq/L 98-107 khrc=040) CO2 (BEAKER) (test 20 meq/L 22-29 kkqa=187) BLOOD UREA NITROGEN 32 mg/dL 7-21 (BEAKER) (test zerf=181) CREATININE (BEAKER) (test 2.28 mg/dL 0.57-1.25 dcfg=305) GLUCOSE RANDOM (BEAKER) 341 mg/dL 70-105 (test sgzt=254) CALCIUM (BEAKER) (test 8.1 mg/dL 8.4-10.2 ajxs=849) AST (SGOT) (BEAKER) (test 851 U/L 5-34 uxwb=642) ALT (SGPT) (BEAKER) (test 345 U/L 6-55 hjeb=735) EGFR (BEAKER) (test 22 mL/min/1.73 sq m ESTIMATED GFR IS NOT jdac=5338) ACCURATE CREATININE CLEARANCE IN PREDICTING GLOMERULAR FILTRATION RATE. ESTIMATED GFR IS NOT APPLICABLE FOR DIALYSIS PATIENTS. [id number] 08:19:00 Test Item Value Reference Range Comments PHOSPHORUS (BEAKER) (test ekqt=369) 2.3 mg/dL 2.3-4.7 [id number] 08:19:00 Test Item Value Reference Range Comments MAGNESIUM (BEAKER) (test dvog=307) 1.9 mg/dL 1.6-2.6 CALCIUM, [id number] 07:20:00 Test Item Value Reference Range Comments CALCIUM IONIZED (BEAKER) (test snmk=788) 0.98 mmol/L 1.12-1.27 PH, BLOOD (BEAKER) (test laew=6864) 7.42 CBC W/PLT COUNT & AUTO [id number] 06:36:00 Test Item Value Reference Range Comments WHITE BLOOD CELL COUNT (BEAKER) (test qpbj=963) 8.1 K/ L 3.5-10.5 RED BLOOD CELL COUNT (BEAKER) (test ctcu=421) 3.43 M/ L 3.93-5.22 HEMOGLOBIN (BEAKER) (test ztpw=509) 9.2 GM/DL 11.2-15.7 HEMATOCRIT (BEAKER) (test tssx=739) 29.3 % 34.1-44.9 MEAN CORPUSCULAR VOLUME (BEAKER) (test lbeo=855) 85.4 fL 79.4-94.8 MEAN CORPUSCULAR HEMOGLOBIN (BEAKER) (test 26.8 pg 25.6-32.2 rigr=287) MEAN CORPUSCULAR HEMOGLOBIN CONC (BEAKER) (test 31.4 GM/DL 32.2-35.5 anse=973) RED CELL DISTRIBUTION WIDTH (BEAKER) (test 14.6 % 11.7-14.4 jllh=713) PLATELET COUNT (BEAKER) (test jouw=049) 132 K/CU MM 150-450 MEAN PLATELET VOLUME (BEAKER) (test minx=465) 9.3 fL 9.4-12.3 NUCLEATED RED BLOOD CELLS (BEAKER) (test 0 /100 WBC 0-0 gzfd=531) NEUTROPHILS RELATIVE PERCENT (BEAKER) (test 77 % jpsz=014) LYMPHOCYTES RELATIVE PERCENT (BEAKER) (test 13 % pmcq=348) MONOCYTES RELATIVE PERCENT (BEAKER) (test 8 % brhr=040) EOSINOPHILS RELATIVE PERCENT (BEAKER) (test 2 % iack=148) BASOPHILS RELATIVE PERCENT (BEAKER) (test 1 % ehze=730) NEUTROPHILS ABSOLUTE COUNT (BEAKER) (test 6.17 K/ L 1.56-6.13 bbon=616) LYMPHOCYTES ABSOLUTE COUNT (BEAKER) (test 1.02 K/ L 1.18-3.74 qzta=210) MONOCYTES ABSOLUTE COUNT (BEAKER) (test 0.61 K/ L 0.24-0.36 niqg=174) EOSINOPHILS ABSOLUTE COUNT (BEAKER) (test 0.18 K/ L 0.04-0.36 hcyr=440) BASOPHILS ABSOLUTE COUNT (BEAKER) (test 0.05 K/ L 0.01-0.08 vagg=290) IMMATURE GRANULOCYTES-RELATIVE PERCENT (BEAKER) 1 % 0-1 (test ygvk=3005) BASIC METABOLIC [id number] 19:24:00 Test Item Value Reference Range Comments SODIUM (BEAKER) (test 132 meq/L 136-145 fzpx=560) POTASSIUM (BEAKER) (test 4.8 meq/L 3.5-5.1 djak=157) CHLORIDE (BEAKER) (test 103 meq/L 98-107 bulq=715) CO2 (BEAKER) (test 20 meq/L 22-29 gkdc=880) BLOOD UREA NITROGEN 30 mg/dL 7-21 (BEAKER) (test uqgi=694) CREATININE (BEAKER) (test 1.85 mg/dL 0.57-1.25 ingq=343) GLUCOSE RANDOM (BEAKER) 297 mg/dL 70-105 (test iylp=820) CALCIUM (BEAKER) (test 8.7 mg/dL 8.4-10.2 fjvq=884) EGFR (BEAKER) (test 28 mL/min/1.73 sq m ESTIMATED GFR IS NOT jpgf=9058) ACCURATE CREATININE CLEARANCE IN PREDICTING GLOMERULAR FILTRATION RATE. ESTIMATED GFR IS NOT APPLICABLE FOR DIALYSIS PATIENTS. Please draw [address]. Quiroz at [phone] with results.Call [id number] 19:22:00 Test Item Value Reference Range Comments SODIUM (BEAKER) (test nxtg=396) 132 meq/L 136-145 POTASSIUM (BEAKER) (test cnnf=666) 4.8 meq/L 3.5-5.1 CHLORIDE (BEAKER) (test rdcv=763) 103 meq/L 98-107 CO2 (BEAKER) (test sruj=096) 20 meq/L 22-29 Please draw 4 hours after [address]PS. Page Dr. Quiroz at [phone] with results.Call [id number] 18:11:00 Test Item Value Reference Range Comments POC-GLUCOSE METER (BEAKER) 314 mg/dL 70-110 TESTED AT [address] (test bztl=6891) [place] [id number] POCT-GLUCOSE [id number] 17:29:00 Test Item Value Reference Range Comments POC-GLUCOSE METER (BEAKER) 255 mg/dL 70-110 TESTED AT [address] (test mgwv=1720) [facility] [address] POCT-GLUCOSE [id number] 13:02:00 Test Item Value Reference Range Comments POC-GLUCOSE METER (BEAKER) 289 mg/dL 70-110 TESTED AT [address] (test wbxc=3945) [place] [id number] BODY FLUID CULTURE + GRAM [id number] 12:08:00 Test Item Value Reference Range Comments CULTURE (BEAKER) (test wuie=1706) No growth GRAM STAIN RESULT (BEAKER) (test <1+ WBCs pien=8703) GRAM STAIN RESULT (BEAKER) (test No organisms seen edsa=69098) SEAMUS [id number] 09:29:00Reason for exam:->cirrhosis/ portal hypertension , refractory [...] and a bleeding placement of a 10 Mauritan[place] sheath from theright hepatic vein to the [...] 1 L of yellow fluid. The 5 Mauritanian needle/catheter was inserted with real-time ultrasound guidance into the peritoneal cavity in the right lateral abdomen following sterile preparation. Following this, the sheath catheter was removed. CONCLUSION: Successful TIPS and paracentesis. Signed: Yulia Kaba MDReport Verified Date/Time: 02/20/2019 09:29:18 Reading Location : [place] [address] Angio Body Reading Room CALCIUM, [id number] 06:43:00 Test Item Value Reference Range Comments CALCIUM IONIZED (BEAKER) (test wqgj=184) 1.02 mmol/L 1.12-1.27 PH, BLOOD (BEAKER) (test sita=5617) 7.40 [id number] 06:12:00 Test Item Value Reference Range Comments PHOSPHORUS (BEAKER) (test tkgh=119) 2.5 mg/dL 2.3-4.7 [id number] 06:12:00 Test Item Value Reference Range Comments MAGNESIUM (BEAKER) (test rkrr=072) 1.6 mg/dL 1.6-2.6 HEPATIC FUNCTION [id number] 06:12:00 Test Item Value Reference Range Comments TOTAL PROTEIN (BEAKER) (test jcri=827) 5.3 gm/dL 6.0-8.3 ALBUMIN (BEAKER) (test lzdx=4501) 3.6 g/dL 3.5-5.0 BILIRUBIN TOTAL (BEAKER) (test uqpd=963) 1.2 mg/dL 0.2-1.2 BILIRUBIN DIRECT (BEAKER) (test npfh=157) 0.6 mg/dL 0.1-0.5 ALKALINE PHOSPHATASE (BEAKER) (test wioj=978) 80 U/L 40-150 AST (SGOT) (BEAKER) (test cwfz=762) 99 U/L 5-34 ALT (SGPT) (BEAKER) (test icfs=605) 52 U/L 6-55 COMPREHENSIVE METABOLIC [id number] 06:12:00 Test Item Value Reference Range Comments TOTAL PROTEIN (BEAKER) 5.3 gm/dL 6.0-8.3 (test qhxb=976) ALBUMIN (BEAKER) (test 3.6 g/dL 3.5-5.0 kyzj=7488) ALKALINE PHOSPHATASE 80 U/L 40-150 (BEAKER) (test szbd=069) BILIRUBIN TOTAL (BEAKER) 1.2 mg/dL 0.2-1.2 (test ghdb=274) SODIUM (BEAKER) (test 133 meq/L 136-145 alvu=722) POTASSIUM (BEAKER) (test 5.4 meq/L 3.5-5.1 mzkx=553) CHLORIDE (BEAKER) (test 104 meq/L 98-107 zftx=692) CO2 (BEAKER) (test 22 meq/L 22-29 fsbi=072) BLOOD UREA NITROGEN 27 mg/dL 7-21 (BEAKER) (test ucmf=558) CREATININE (BEAKER) (test 1.58 mg/dL 0.57-1.25 bybq=782) GLUCOSE RANDOM (BEAKER) 300 mg/dL 70-105 (test eoba=651) CALCIUM (BEAKER) (test 8.4 mg/dL 8.4-10.2 ueva=186) AST (SGOT) (BEAKER) (test 99 U/L 5-34 vhnr=375) ALT (SGPT) (BEAKER) (test 52 U/L 6-55 xmhm=092) EGFR (BEAKER) (test 33 mL/min/1.73 sq m ESTIMATED GFR IS NOT tjfr=7452) ACCURATE CREATININE CLEARANCE IN PREDICTING GLOMERULAR FILTRATION RATE. ESTIMATED GFR IS NOT APPLICABLE FOR DIALYSIS PATIENTS. PROTHROMBIN [id number] 05:57:00 Test Item Value Reference Range Comments PROTIME (BEAKER) (test nsft=393) 16.4 seconds 11.7-14.7 INR (BEAKER) (test wofs=108) 1.3 <=5.9 RECOMMENDED COUMADIN/WARFARIN INR THERAPY RANGESSTANDARD DOSE: 2.0 - 3.0 Includes: PROPHYLAXIS forvenous thrombosis, systemic embolization; TREATMENT for venous thrombosis and/or pulmonary embolus.HIGH RISK: Target INR is 2.5-3.5 for patients with mechanical heart valves.CBC W/PLT COUNT & AUTO [id number] 05:54:00 Test Item Value Reference Range Comments WHITE BLOOD CELL COUNT (BEAKER) (test urzh=241) 7.9 K/ L 3.5-10.5 RED BLOOD CELL COUNT (BEAKER) (test clfc=611) 3.24 M/ L 3.93-5.22 HEMOGLOBIN (BEAKER) (test xmrp=156) 8.9 GM/DL 11.2-15.7 HEMATOCRIT (BEAKER) (test yeju=952) 28.0 % 34.1-44.9 MEAN CORPUSCULAR VOLUME (BEAKER) (test iaaa=719) 86.4 fL 79.4-94.8 MEAN CORPUSCULAR HEMOGLOBIN (BEAKER) (test 27.5 pg 25.6-32.2 sjhp=503) MEAN CORPUSCULAR HEMOGLOBIN CONC (BEAKER) (test 31.8 GM/DL 32.2-35.5 lrhs=662) RED CELL DISTRIBUTION WIDTH (BEAKER) (test 14.4 % 11.7-14.4 cvoz=511) PLATELET COUNT (BEAKER) (test xdid=175) 132 K/CU MM 150-450 MEAN PLATELET VOLUME (BEAKER) (test ocgs=003) 9.3 fL 9.4-12.3 NUCLEATED RED BLOOD CELLS (BEAKER) (test 0 /100 WBC 0-0 bttw=392) NEUTROPHILS RELATIVE PERCENT (BEAKER) (test 83 % vssh=234) LYMPHOCYTES RELATIVE PERCENT (BEAKER) (test 10 % xrcv=226) MONOCYTES RELATIVE PERCENT (BEAKER) (test 7 % vtqo=680) EOSINOPHILS RELATIVE PERCENT (BEAKER) (test 0 % pkiz=263) BASOPHILS RELATIVE PERCENT (BEAKER) (test 0 % cywv=852) NEUTROPHILS ABSOLUTE COUNT (BEAKER) (test 6.55 K/ L 1.56-6.13 mlez=455) LYMPHOCYTES ABSOLUTE COUNT (BEAKER) (test 0.77 K/ L 1.18-3.74 kxwt=716) MONOCYTES ABSOLUTE COUNT (BEAKER) (test 0.55 K/ L 0.24-0.36 jxtb=284) EOSINOPHILS ABSOLUTE COUNT (BEAKER) (test 0.00 K/ L 0.04-0.36 rbwa=499) BASOPHILS ABSOLUTE COUNT (BEAKER) (test 0.02 K/ L 0.01-0.08 jusq=859) IMMATURE GRANULOCYTES-RELATIVE PERCENT (BEAKER) 0 % 0-1 (test brid=8725) POCT-GLUCOSE [id number] 19:01:00 Test Item Value Reference Range Comments POC-GLUCOSE METER (BEAKER) 301 mg/dL 70-110 TESTED AT [facility] [address] [place] [address] (test yxxv=2366) [facility] [address] CT, ABDOMEN, WITHOUT [id number] 12:33:00FINAL REPORT ABDOMINAL CT DATED 02/19/2019 CLINICAL [...] [place] Verified Date/Time: 02/19/2019 12:33:54 Reading Location: [address] Body Reading Room Electronicallysigned by: GIOVANNI HAAS M.D. on 02/19/2019 12:33 PMBODY FLUID CULTURE + GRAM [id number] 12:08:00 Test Item Value Reference Range Comments CULTURE (BEAKER) (test llbi=9305) No growth GRAM STAIN RESULT (BEAKER) (test <1+ WBCs swra=9863) GRAM STAIN RESULT (BEAKER) (test No organisms seen pxgd=30645) POCT-GLUCOSE [id number] 09:38:00 Test Item Value Reference Range Comments POC-GLUCOSE METER (BEAKER) 274 mg/dL 70-110 TESTED AT [address] (test wmhh=5185) [facility] [address] CALCIUM, [id number] 06:56:00 Test Item Value Reference Range Comments CALCIUM IONIZED (BEAKER) (test zpdz=020) 1.05 mmol/L 1.12-1.27 PH, BLOOD (BEAKER) (test umkm=9912) 7.40 [id number] 06:22:00 Test Item Value Reference Range Comments PHOSPHORUS (BEAKER) (test wmew=938) 2.3 mg/dL 2.3-4.7 [id number] 06:22:00 Test Item Value Reference Range Comments MAGNESIUM (BEAKER) (test sdic=151) 1.7 mg/dL 1.6-2.6 HEPATIC FUNCTION [id number] 06:22:00 Test Item Value Reference Range Comments TOTAL PROTEIN (BEAKER) (test oryr=262) 5.6 gm/dL 6.0-8.3 ALBUMIN (BEAKER) (test wfgg=3945) 3.4 g/dL 3.5-5.0 BILIRUBIN TOTAL (BEAKER) (test qvcw=541) 0.9 mg/dL 0.2-1.2 BILIRUBIN DIRECT (BEAKER) (test gldj=443) 0.4 mg/dL 0.1-0.5 ALKALINE PHOSPHATASE (BEAKER) (test gbym=594) 121 U/L 40-150 AST (SGOT) (BEAKER) (test atzl=674) 28 U/L 5-34 ALT (SGPT) (BEAKER) (test cumi=411) 12 U/L 6-55 COMPREHENSIVE METABOLIC [id number] 06:22:00 Test Item Value Reference Range Comments TOTAL PROTEIN (BEAKER) 5.6 gm/dL 6.0-8.3 (test ryth=473) ALBUMIN (BEAKER) (test 3.4 g/dL 3.5-5.0 rjtx=3995) ALKALINE PHOSPHATASE 121 U/L 40-150 (BEAKER) (test mfqe=901) BILIRUBIN TOTAL (BEAKER) 0.9 mg/dL 0.2-1.2 (test eivg=324) SODIUM (BEAKER) (test 135 meq/L 136-145 iuco=635) POTASSIUM (BEAKER) (test 4.5 meq/L 3.5-5.1 exri=668) CHLORIDE (BEAKER) (test 105 meq/L 98-107 ooud=965) CO2 (BEAKER) (test 22 meq/L 22-29 zfhi=049) BLOOD UREA NITROGEN 29 mg/dL 7-21 (BEAKER) (test yuvp=492) CREATININE (BEAKER) (test 1.38 mg/dL 0.57-1.25 rzti=655) GLUCOSE RANDOM (BEAKER) 313 mg/dL 70-105 (test gtbg=569) CALCIUM (BEAKER) (test 8.7 mg/dL 8.4-10.2 wgom=731) AST (SGOT) (BEAKER) (test 28 U/L 5-34 ouih=341) ALT (SGPT) (BEAKER) (test 12 U/L 6-55 erfu=534) EGFR (BEAKER) (test 39 mL/min/1.73 sq m ESTIMATED GFR IS NOT rvks=6611) ACCURATE CREATININE CLEARANCE IN PREDICTING GLOMERULAR FILTRATION RATE. ESTIMATED GFR IS NOT APPLICABLE FOR DIALYSIS PATIENTS. PROTHROMBIN [id number] 06:15:00 Test Item Value Reference Range Comments PROTIME (BEAKER) (test wcxv=844) 14.0 seconds 11.7-14.7 INR (BEAKER) (test qrky=902) 1.1 <=5.9 RECOMMENDED COUMADIN/WARFARIN INR THERAPY RANGESSTANDARD DOSE: 2.0 - 3.0 Includes: PROPHYLAXIS forvenous thrombosis, systemic embolization; TREATMENT for venous thrombosis and/or pulmonary embolus.HIGH RISK: Target INR is 2.5-3.5 for patients with mechanical heart valves.CBC W/PLT COUNT & AUTO [id number] 05:57:00 Test Item Value Reference Range Comments WHITE BLOOD CELL COUNT (BEAKER) (test lwxo=766) 6.9 K/ L 3.5-10.5 RED BLOOD CELL COUNT (BEAKER) (test cabx=564) 3.83 M/ L 3.93-5.22 HEMOGLOBIN (BEAKER) (test pszq=955) 10.5 GM/DL 11.2-15.7 HEMATOCRIT (BEAKER) (test bpeq=791) 33.1 % 34.1-44.9 MEAN CORPUSCULAR VOLUME (BEAKER) (test awdz=639) 86.4 fL 79.4-94.8 MEAN CORPUSCULAR HEMOGLOBIN (BEAKER) (test 27.4 pg 25.6-32.2 pcda=177) MEAN CORPUSCULAR HEMOGLOBIN CONC (BEAKER) (test 31.7 GM/DL 32.2-35.5 qmfl=146) RED CELL DISTRIBUTION WIDTH (BEAKER) (test 14.4 % 11.7-14.4 lhxl=439) PLATELET COUNT (BEAKER) (test mrjc=502) 175 K/CU MM 150-450 MEAN PLATELET VOLUME (BEAKER) (test bnxf=576) 9.9 fL 9.4-12.3 NUCLEATED RED BLOOD CELLS (BEAKER) (test 0 /100 WBC 0-0 vhrm=480) NEUTROPHILS RELATIVE PERCENT (BEAKER) (test 73 % rnew=214) LYMPHOCYTES RELATIVE PERCENT (BEAKER) (test 16 % ahfq=192) MONOCYTES RELATIVE PERCENT (BEAKER) (test 7 % ecgb=678) EOSINOPHILS RELATIVE PERCENT (BEAKER) (test 4 % wrvy=597) BASOPHILS RELATIVE PERCENT (BEAKER) (test 1 % qtao=205) NEUTROPHILS ABSOLUTE COUNT (BEAKER) (test 4.99 K/ L 1.56-6.13 pify=439) LYMPHOCYTES ABSOLUTE COUNT (BEAKER) (test 1.09 K/ L 1.18-3.74 kcvj=799) MONOCYTES ABSOLUTE COUNT (BEAKER) (test 0.50 K/ L 0.24-0.36 dpyo=156) EOSINOPHILS ABSOLUTE COUNT (BEAKER) (test 0.25 K/ L 0.04-0.36 mksw=199) BASOPHILS ABSOLUTE COUNT (BEAKER) (test 0.04 K/ L 0.01-0.08 fvuc=953) IMMATURE GRANULOCYTES-RELATIVE PERCENT (BEAKER) 0 % 0-1 (test cqga=7131) POCT-GLUCOSE [id number] 23:05:00 Test Item Value Reference Range Comments POC-GLUCOSE METER (BEAKER) 412 mg/dL 70-110 Will Repeat Test/TESTED AT (test xzvo=2502) [address] [address] POCT-GLUCOSE [id number] 22:12:00 Test Item Value Reference Range Comments POC-GLUCOSE METER (BEAKER) 371 mg/dL 70-110 TESTED AT [address] (test nscg=9009) [facility] [address] BODY FLUID CELL COUNT WITH [id number] 13:06:00 Test Item Value Reference Range Comments APPEARANCE FLUID (BEAKER) (test syxf=808) Slightly Hazy Clear COLOR FLUID (BEAKER) (test dezd=264) Yellow Colorless, Straw RBC FLUID (BEAKER) (test lbus=075) 252 /cu mm <=1 ADJUSTED WBC FLUID (BEAKER) (test ypkb=9876) 112 /cu mm <=5 LINING CELLS (BEAKER) (test durr=0566) 10 /cu mm <=1 NEUTROPHILS FLUID (BEAKER) (test stfc=9677) 8 % LYMPHS FLUID (BEAKER) (test ybtq=310) 40 % MONO/MACROPHAGE FLUID (BEAKER) (test 43 % vbxd=918) EOSINOPHILS FLUID (BEAKER) (test gbwt=545) 0 % BASO FLUID (BEAKER) (test fqko=658) 0 % CONTAINER BODY FLUID (BEAKER) (test EDTA Tube morg=1406) U/S, [id number] 10:21:00Limit 8 LReason for exam:->ascites, limit 8 [...] skin and deep soft tissues. A 5 Mauritanian one-step catheter was inserted and removed from the peritoneal space and approximately 8.0 liters of clear yellow fluid was aspirated from the abdomen. There were no immediate complications. Impression: Successful ultrasound guided paracentesis with aspiration of 8.0 liters of fluid. Signed: Akil Chung MDReport Verified Date/ Time: 02/18/2019 10:21:08 Reading Location: [address] Ultrasound Reading Room [id number] 07:08:00 Test Item Value Reference Range Comments MAGNESIUM (BEAKER) (test vfli=705) 1.7 mg/dL 1.6-2.6 HEPATIC FUNCTION [id number] 07:08:00 Test Item Value Reference Range Comments TOTAL PROTEIN (BEAKER) (test koep=455) 5.4 gm/dL 6.0-8.3 ALBUMIN (BEAKER) (test bxrf=8744) 3.2 g/dL 3.5-5.0 BILIRUBIN TOTAL (BEAKER) (test hkcv=489) 0.8 mg/dL 0.2-1.2 BILIRUBIN DIRECT (BEAKER) (test oamu=808) 0.4 mg/dL 0.1-0.5 ALKALINE PHOSPHATASE (BEAKER) (test hhmo=499) 104 U/L 40-150 AST (SGOT) (BEAKER) (test rmef=886) 20 U/L 5-34 ALT (SGPT) (BEAKER) (test ejfi=278) 10 U/L 6-55 COMPREHENSIVE METABOLIC [id number] 07:08:00 Test Item Value Reference Range Comments TOTAL PROTEIN (BEAKER) 5.4 gm/dL 6.0-8.3 (test ykiq=791) ALBUMIN (BEAKER) (test 3.2 g/dL 3.5-5.0 pvtk=1878) ALKALINE PHOSPHATASE 104 U/L 40-150 (BEAKER) (test lmne=952) BILIRUBIN TOTAL (BEAKER) 0.8 mg/dL 0.2-1.2 (test rrop=997) SODIUM (BEAKER) (test 136 meq/L 136-145 kvil=280) POTASSIUM (BEAKER) (test 4.3 meq/L 3.5-5.1 aqmk=272) CHLORIDE (BEAKER) (test 108 meq/L 98-107 alti=419) CO2 (BEAKER) (test 22 meq/L 22-29 xwvg=531) BLOOD UREA NITROGEN 31 mg/dL 7-21 (BEAKER) (test zeix=846) CREATININE (BEAKER) (test 1.26 mg/dL 0.57-1.25 dffr=012) GLUCOSE RANDOM (BEAKER) 262 mg/dL 70-105 (test jdun=510) CALCIUM (BEAKER) (test 8.5 mg/dL 8.4-10.2 xsvg=394) AST (SGOT) (BEAKER) (test 20 U/L 5-34 sezw=658) ALT (SGPT) (BEAKER) (test 10 U/L 6-55 ncwf=300) EGFR (BEAKER) (test 43 mL/min/1.73 sq m ESTIMATED GFR IS NOT mmka=7305) ACCURATE CREATININE CLEARANCE IN PREDICTING GLOMERULAR FILTRATION RATE. ESTIMATED GFR IS NOT APPLICABLE FOR DIALYSIS PATIENTS. [id number] 07:07:00 Test Item Value Reference Range Comments PHOSPHORUS (BEAKER) (test nebz=110) 2.7 mg/dL 2.3-4.7 POCT-GLUCOSE [id number] 06:31:00 Test Item Value Reference Range Comments POC-GLUCOSE METER (BEAKER) 249 mg/dL 70-110 TESTED AT [facility] [address] [facility] (test znwk=0049) [facility] [address] URINALYSIS W/ [id number] 06:17:00 Test Item Value Reference Range Comments COLOR (BEAKER) (test uoxm=031) Yellow CLARITY (BEAKER) (test ppzt=730) Clear SPECIFIC GRAVITY UA (BEAKER) (test nafw=818) 1.013 1.001-1.035 PH UA (BEAKER) (test mqcb=175) 5.0 5.0-8.0 PROTEIN UA (BEAKER) (test xcap=949) Negative Negative GLUCOSE UA (BEAKER) (test pprm=195) 100 mg/dL Negative KETONES UA (BEAKER) (test knqg=122) Negative Negative BILIRUBIN UA (BEAKER) (test fbro=421) Negative Negative BLOOD UA (BEAKER) (test hclh=834) Negative Negative NITRITE UA (BEAKER) (test qxxm=901) Negative Negative LEUKOCYTE ESTERASE UA (BEAKER) (test niag=760) Large Negative UROBILINOGEN UA (BEAKER) (test wble=333) 0.2 mg/dL 0.2-1.0 RBC UA (BEAKER) (test fnot=761) 2 /HPF WBC UA (BEAKER) (test maas=582) 24 /HPF SQUAMOUS EPITHELIAL (BEAKER) (test sbqv=675) 14 /HPF HYALINE CASTS (BEAKER) (test efze=783) 3 /LPF SOURCE(BEAKER) (test iifp=3902) Urine, Voided [id number] 05:53:00 Test Item Value Reference Range Comments PARTIAL THROMBOPLASTIN TIME (BEAKER) (test 20.1 seconds 22.5-36.0 aspl=955) CALCIUM, [id number] 05:50:00 Test Item Value Reference Range Comments CALCIUM IONIZED (BEAKER) (test bdgo=490) 1.00 mmol/L 1.12-1.27 PH, BLOOD (BEAKER) (test gcpe=9349) 7.43 PROTHROMBIN [id number] 04:54:00 Test Item Value Reference Range Comments PROTIME (BEAKER) (test hoyn=454) 13.8 seconds 11.7-14.7 INR (BEAKER) (test bvli=169) 1.0 <=5.9 RECOMMENDED COUMADIN/WARFARIN INR THERAPY RANGESSTANDARD DOSE: 2.0 - 3.0 Includes: PROPHYLAXIS forvenous thrombosis, systemic embolization; TREATMENT for venous thrombosis and/or pulmonary embolus.HIGH RISK: Target INR is 2.5-3.5 for patients with mechanical heart valves.CREATININE, RANDOM [id number] 04: 48:00 Test Item Value Reference Range Comments CREATININE URINE (BEAKER) (test winx=645) 115.9 mg/dL Reference Range: No NormalsPROTEIN, RANDOM [id number] 04:48:00 Test Item Value Reference Range Comments PROTEIN, URINE (BEAKER) (test yuok=3240) 12 mg/dL 0-14 CBC W/PLT COUNT & AUTO [id number] 04:30:00 Test Item Value Reference Range Comments WHITE BLOOD CELL COUNT (BEAKER) (test mxcs=383) 5.2 K/ L 3.5-10.5 RED BLOOD CELL COUNT (BEAKER) (test brej=028) 3.58 M/ L 3.93-5.22 HEMOGLOBIN (BEAKER) (test qxiw=257) 9.8 GM/DL 11.2-15.7 HEMATOCRIT (BEAKER) (test qvpm=724) 31.6 % 34.1-44.9 MEAN CORPUSCULAR VOLUME (BEAKER) (test shfm=128) 88.3 fL 79.4-94.8 MEAN CORPUSCULAR HEMOGLOBIN (BEAKER) (test 27.4 pg 25.6-32.2 mnny=247) MEAN CORPUSCULAR HEMOGLOBIN CONC (BEAKER) (test 31.0 GM/DL 32.2-35.5 qstw=114) RED CELL DISTRIBUTION WIDTH (BEAKER) (test 14.4 % 11.7-14.4 fdcw=829) PLATELET COUNT (BEAKER) (test vnkl=642) 173 K/CU MM 150-450 MEAN PLATELET VOLUME (BEAKER) (test wmsm=933) 9.6 fL 9.4-12.3 NUCLEATED RED BLOOD CELLS (BEAKER) (test 0 /100 WBC 0-0 eiks=042) NEUTROPHILS RELATIVE PERCENT (BEAKER) (test 67 % zszu=896) LYMPHOCYTES RELATIVE PERCENT (BEAKER) (test 19 % syiz=961) MONOCYTES RELATIVE PERCENT (BEAKER) (test 8 % jhhs=889) EOSINOPHILS RELATIVE PERCENT (BEAKER) (test 5 % wvgf=792) BASOPHILS RELATIVE PERCENT (BEAKER) (test 1 % khjp=035) NEUTROPHILS ABSOLUTE COUNT (BEAKER) (test 3.43 K/ L 1.56-6.13 yhhz=579) LYMPHOCYTES ABSOLUTE COUNT (BEAKER) (test 0.98 K/ L 1.18-3.74 hzhu=667) MONOCYTES ABSOLUTE COUNT (BEAKER) (test 0.42 K/ L 0.24-0.36 eilz=950) EOSINOPHILS ABSOLUTE COUNT (BEAKER) (test 0.26 K/ L 0.04-0.36 qdss=065) BASOPHILS ABSOLUTE COUNT (BEAKER) (test 0.04 K/ L 0.01-0.08 pvoj=826) IMMATURE GRANULOCYTES-RELATIVE PERCENT (BEAKER) 0 % 0-1 (test sgle=9037) U/S, ABDOMINAL, WITH [id number] 03:48:00Reason for exam:->TIPS workup , assess for [...] MDReport Verified Date/Time: 02/18/2019 03:48:21 Reading Location: [address] Neuro Reading Room Electronically signed by: Se SCHNEIDER 2018 03:48 AMPOCT-GLUCOSE [id number] 00:28:00 Test Item Value Reference Range Comments POC-GLUCOSE METER (BEAKER) 330 mg/dL 70-110 Will Repeat Test/TESTED AT (test lerh=0143) [facility] [address] [facility] [address] BODY FLUID CELL COUNT WITH [id number] 18:02:00 Test Item Value Reference Range Comments APPEARANCE FLUID (BEAKER) (test sucp=538) Clear Clear COLOR FLUID (BEAKER) (test jryk=541) Yellow Colorless, Straw RBC FLUID (BEAKER) (test lhgb=663) 20 /cu mm <=1 ADJUSTED WBC FLUID (BEAKER) (test toni=2751) 50 /cu mm <=5 LINING CELLS (BEAKER) (test mlqe=6451) 0 /cu mm <=1 NEUTROPHILS FLUID (BEAKER) (test riwe=3620) 1 % LYMPHS FLUID (BEAKER) (test zknm=911) 38 % MONO/MACROPHAGE FLUID (BEAKER) (test mifp=748) 61 % EOSINOPHILS FLUID (BEAKER) (test aqib=441) 0 % BASO FLUID (BEAKER) (test sycc=809) 0 % CONTAINER BODY FLUID (BEAKER) (test gbuy=8323) EDTA Tube U/S, [id number] 16:30:00limit volume to 8 LReason for exam:-> [...] MDReport Verified Date/Time: 02/17 16:30:42 Reading Location: [address] Ultrasound Reading Room POCT-GLUCOSE [id number] 09:48:00 Test Item Value Reference Range Comments POC-GLUCOSE METER (BEAKER) 198 mg/dL 70-110 TESTED AT [address] (test prmo=1607) [facility] [address] BASIC METABOLIC [id number] 06:30:00 Test Item Value Reference Range Comments SODIUM (BEAKER) (test 137 meq/L 136-145 shsc=414) POTASSIUM (BEAKER) (test 4.5 meq/L 3.5-5.1 nkgg=679) CHLORIDE (BEAKER) (test 107 meq/L 98-107 ebyr=517) CO2 (BEAKER) (test 24 meq/L 22-29 luld=225) BLOOD UREA NITROGEN 41 mg/dL 7-21 (BEAKER) (test wqjx=156) CREATININE (BEAKER) (test 1.48 mg/dL 0.57-1.25 faji=216) GLUCOSE RANDOM (BEAKER) 200 mg/dL 70-105 (test mcpl=443) CALCIUM (BEAKER) (test 8.9 mg/dL 8.4-10.2 icsa=707) EGFR (BEAKER) (test 36 mL/min/1.73 sq m ESTIMATED GFR IS NOT bbge=6577) ACCURATE CREATININE CLEARANCE IN PREDICTING GLOMERULAR FILTRATION RATE. ESTIMATED GFR IS NOT APPLICABLE FOR DIALYSIS PATIENTS. POCT-GLUCOSE [id number] 17:31:00 Test Item Value Reference Range Comments POC-GLUCOSE METER (BEAKER) 165 mg/dL 70-110 TESTED AT [facility] [address] [facility] (test kyqc=1489) [facility] [address] U/S, [id number] 16:00:00Reason for exam:->ascites SOBFINAL REPORT PROCEDURE: Ultrasound-guided paracentesis. INDICATION: Ascites. DESCRIPTION: This paracentesis was performed by Lesley Parnell under the direct supervision of Thomas Hendrix. After obtaining informed written consent, ultrasound scan of the abdomen identified ascites in the right lower quadrant. The overlying skin was prepped and draped in the usual, sterile fashion andlocal 2% lidocaine anesthesia was administered. A 5 Mauritanian catheter was advanced into the peritonealcavity and 6000 mL of clear yellow fluid was removed. The catheter was removed without immediate complication. Samples were sent for analysis. IMPRESSION: Uncomplicated ultrasound-guided paracentesis with 6000 mL fluid removed. Signed: Thomas Hendrix [facility] Verified Date/Time: 16:00:46 Reading Location: [address] Ultrasound Reading Room BODY FLUID CELL COUNT WITH [id number] 15:52:00 Test Item Value Reference Range Comments APPEARANCE FLUID (BEAKER) (test gvfm=724) Clear Clear COLOR FLUID (BEAKER) (test zrzu=156) Yellow Colorless, Straw RBC FLUID (BEAKER) (test czum=064) 10 /cu mm <=1 ADJUSTED WBC FLUID (BEAKER) (test hury=6353) 80 /cu mm <=5 LINING CELLS (BEAKER) (test wdfl=0853) 0 /cu mm <=1 NEUTROPHILS FLUID (BEAKER) (test kcmx=1218) 5 % LYMPHS FLUID (BEAKER) (test prhw=157) 35 % MONO/MACROPHAGE FLUID (BEAKER) (test dxrr=956) 59 % EOSINOPHILS FLUID (BEAKER) (test uqym=669) 1 % BASO FLUID (BEAKER) (test whjz=143) 0 % CONTAINER BODY FLUID (BEAKER) (test sqgh=2725) EDTA Tube BASIC METABOLIC [id number] 07:28:00 Test Item Value Reference Range Comments SODIUM (BEAKER) (test 134 meq/L 136-145 mngp=185) POTASSIUM (BEAKER) (test 5.0 meq/L 3.5-5.1 ltrq=077) CHLORIDE (BEAKER) (test 107 meq/L 98-107 mgog=204) CO2 (BEAKER) (test 22 meq/L 22-29 wvqq=448) BLOOD UREA NITROGEN 46 mg/dL 7-21 (BEAKER) (test xbhr=213) CREATININE (BEAKER) (test 1.61 mg/dL 0.57-1.25 vtco=366) GLUCOSE RANDOM (BEAKER) 220 mg/dL 70-105 (test ujvc=007) CALCIUM (BEAKER) (test 9.0 mg/dL 8.4-10.2 rglo=198) EGFR (BEAKER) (test 33 mL/min/1.73 sq m ESTIMATED GFR IS NOT ajkz=3069) ACCURATE CREATININE CLEARANCE IN PREDICTING GLOMERULAR FILTRATION RATE. ESTIMATED GFR IS NOT APPLICABLE FOR DIALYSIS PATIENTS. HEPATIC FUNCTION [id number] 07:28:00 Test Item Value Reference Range Comments TOTAL PROTEIN (BEAKER) (test uohm=096) 5.9 gm/dL 6.0-8.3 ALBUMIN (BEAKER) (test ylrc=1847) 3.0 g/dL 3.5-5.0 BILIRUBIN TOTAL (BEAKER) (test zpwm=385) 0.6 mg/dL 0.2-1.2 BILIRUBIN DIRECT (BEAKER) (test tnbe=940) 0.3 mg/dL 0.1-0.5 ALKALINE PHOSPHATASE (BEAKER) (test feyu=724) 154 U/L 40-150 AST (SGOT) (BEAKER) (test hjob=675) 22 U/L 5-34 ALT (SGPT) (BEAKER) (test epuk=635) 12 U/L 6-55 [id number] 07:27:00 Test Item Value Reference Range Comments MAGNESIUM (BEAKER) (test qhoy=258) 2.2 mg/dL 1.6-2.6 CBC W/PLT COUNT & AUTO [id number] 07:06:00 Test Item Value Reference Range Comments WHITE BLOOD CELL COUNT (BEAKER) (test zanj=506) 6.2 K/ L 3.5-10.5 RED BLOOD CELL COUNT (BEAKER) (test nzrg=792) 3.62 M/ L 3.93-5.22 HEMOGLOBIN (BEAKER) (test kflj=449) 9.8 GM/DL 11.2-15.7 HEMATOCRIT (BEAKER) (test ghmq=011) 31.4 % 34.1-44.9 MEAN CORPUSCULAR VOLUME (BEAKER) (test lyjv=988) 86.7 fL 79.4-94.8 MEAN CORPUSCULAR HEMOGLOBIN (BEAKER) (test 27.1 pg 25.6-32.2 zrtb=584) MEAN CORPUSCULAR HEMOGLOBIN CONC (BEAKER) (test 31.2 GM/DL 32.2-35.5 crdy=605) RED CELL DISTRIBUTION WIDTH (BEAKER) (test 14.5 % 11.7-14.4 wgrc=140) PLATELET COUNT (BEAKER) (test kjca=007) 198 K/CU MM 150-450 MEAN PLATELET VOLUME (BEAKER) (test pwvi=844) 9.8 fL 9.4-12.3 NUCLEATED RED BLOOD CELLS (BEAKER) (test 0 /100 WBC 0-0 mjwc=920) NEUTROPHILS RELATIVE PERCENT (BEAKER) (test 64 % ortw=616) LYMPHOCYTES RELATIVE PERCENT (BEAKER) (test 22 % eyjq=255) MONOCYTES RELATIVE PERCENT (BEAKER) (test 9 % giin=555) EOSINOPHILS RELATIVE PERCENT (BEAKER) (test 5 % wbaa=030) BASOPHILS RELATIVE PERCENT (BEAKER) (test 1 % suvi=629) NEUTROPHILS ABSOLUTE COUNT (BEAKER) (test 3.93 K/ L 1.56-6.13 sggp=441) LYMPHOCYTES ABSOLUTE COUNT (BEAKER) (test 1.35 K/ L 1.18-3.74 rwen=594) MONOCYTES ABSOLUTE COUNT (BEAKER) (test 0.53 K/ L 0.24-0.36 cszn=609) EOSINOPHILS ABSOLUTE COUNT (BEAKER) (test 0.28 K/ L 0.04-0.36 qlqa=356) BASOPHILS ABSOLUTE COUNT (BEAKER) (test 0.05 K/ L 0.01-0.08 ytnh=742) IMMATURE GRANULOCYTES-RELATIVE PERCENT (BEAKER) 1 % 0-1 (test xtgb=0339) [id number] 06:49:00 Test Item Value Reference Range Comments PROTIME (BEAKER) (test tvxa=461) 13.4 seconds 11.7-14.7 INR (BEAKER) (test hryq=018) 1.0 <=5.9 PARTIAL THROMBOPLASTIN TIME (BEAKER) (test 30.9 seconds 22.5-36.0 ulzg=838) RECOMMENDED COUMADIN/WARFARIN INR THERAPY RANGESSTANDARD DOSE: 2.0 - 3.0 Includes: PROPHYLAXIS forvenous thrombosis, systemic embolization; TREATMENT for venous thrombosis and/or pulmonary embolus.HIGH RISK: Target INR is 2.5-3.5 for patients with mechanical heart valves.URINALYSIS W/ REFLEX URINE [id number] 05:32:00 Test Item Value Reference Range Comments COLOR (BEAKER) (test vljk=209) Yellow CLARITY (BEAKER) (test hskt=818) Hazy SPECIFIC GRAVITY UA (BEAKER) (test ftmz=697) 1.021 1.001-1.035 PH UA (BEAKER) (test guvq=289) 5.5 5.0-8.0 PROTEIN UA (BEAKER) (test mkhb=901) 30 mg/dL Negative GLUCOSE UA (BEAKER) (test tvpi=825) Negative Negative KETONES UA (BEAKER) (test ozbn=122) Negative Negative BILIRUBIN UA (BEAKER) (test whud=090) Negative Negative BLOOD UA (BEAKER) (test hrdt=690) Negative Negative NITRITE UA (BEAKER) (test prdd=082) Negative Negative LEUKOCYTE ESTERASE UA (BEAKER) (test hdfk=210) Large Negative UROBILINOGEN UA (BEAKER) (test rcdf=397) 2.0 mg/dL 0.2-1.0 RBC UA (BEAKER) (test rqqj=317) 7 /HPF WBC UA (BEAKER) (test kxho=452) 7 /HPF MUCUS (BEAKER) (test oobx=6240) Rare SQUAMOUS EPITHELIAL (BEAKER) (test syla=168) 6 /HPF HYALINE CASTS (BEAKER) (test nyhj=387) 40 /LPF SOURCE(BEAKER) (test ivco=0896) POCT-GLUCOSE [id number] 05:00:00 Test Item Value Reference Range Comments POC-GLUCOSE METER (BEAKER) 227 mg/dL 70-110 TESTED AT [facility] [address] [facility] (test fwni=8354) [facility] [address] ALPHA FETOPROTEIN (AFP), TUMOR [id number] 15:55:00 Test Item Value Reference Range Comments ALPHA-FETOPROTEIN (BEAKER) (test httd=7349) 3.4 ng/mL <10.0 BASIC METABOLIC [id number] 15:40:00 Test Item Value Reference Range Comments SODIUM (BEAKER) (test 133 meq/L 136-145 gkzh=887) POTASSIUM (BEAKER) (test 4.8 meq/L 3.5-5.1 vwrk=288) CHLORIDE (BEAKER) (test 101 meq/L 98-107 scdn=573) CO2 (BEAKER) (test 23 meq/L 22-29 jjjh=869) BLOOD UREA NITROGEN 37 mg/dL 7-21 (BEAKER) (test glux=386) CREATININE (BEAKER) (test 2.17 mg/dL 0.57-1.25 uepm=002) GLUCOSE RANDOM (BEAKER) 191 mg/dL 70-105 (test tjaa=134) CALCIUM (BEAKER) (test 9.2 mg/dL 8.4-10.2 wtef=451) EGFR (BEAKER) (test 23 mL/min/1.73 sq m ESTIMATED GFR IS NOT qyve=9502) ACCURATE CREATININE CLEARANCE IN PREDICTING GLOMERULAR FILTRATION RATE. ESTIMATED GFR IS NOT APPLICABLE FOR DIALYSIS PATIENTS. HEPATIC FUNCTION [id number] 15:38:00 Test Item Value Reference Range Comments TOTAL PROTEIN (BEAKER) (test tckx=037) 6.9 gm/dL 6.0-8.3 ALBUMIN (BEAKER) (test jakp=0488) 3.7 g/dL 3.5-5.0 BILIRUBIN TOTAL (BEAKER) (test rdlu=888) 0.8 mg/dL 0.2-1.2 BILIRUBIN DIRECT (BEAKER) (test cowc=315) 0.3 mg/dL 0.1-0.5 ALKALINE PHOSPHATASE (BEAKER) (test zbzn=922) 95 U/L 40-150 AST (SGOT) (BEAKER) (test bcal=304) 24 U/L 5-34 ALT (SGPT) (BEAKER) (test eand=721) 14 U/L 6-55 PROTHROMBIN [id number] 15:29:00 Test Item Value Reference Range Comments PROTIME (BEAKER) (test nrkg=399) 12.8 seconds 11.7-14.7 INR (BEAKER) (test amvz=947) 1.0 <=5.9 RECOMMENDED COUMADIN/WARFARIN INR THERAPY RANGESSTANDARD DOSE: 2.0 - 3.0 Includes: PROPHYLAXIS forvenous thrombosis, systemic embolization; TREATMENT for venous thrombosis and/or pulmonary embolus.HIGH RISK: Target INR is 2.5-3.5 for patients with mechanical heart valves.CBC W/PLT COUNT & AUTO [id number] 15:17:00 Test Item Value Reference Range Comments WHITE BLOOD CELL COUNT (BEAKER) (test clvz=818) 7.8 K/ L 3.5-10.5 RED BLOOD CELL COUNT (BEAKER) (test zwtt=016) 4.49 M/ L 3.93-5.22 HEMOGLOBIN (BEAKER) (test xsmy=253) 12.4 GM/DL 11.2-15.7 HEMATOCRIT (BEAKER) (test nhrz=767) 39.1 % 34.1-44.9 MEAN CORPUSCULAR VOLUME (BEAKER) (test bsml=077) 87.1 fL 79.4-94.8 MEAN CORPUSCULAR HEMOGLOBIN (BEAKER) (test 27.6 pg 25.6-32.2 wegj=223) MEAN CORPUSCULAR HEMOGLOBIN CONC (BEAKER) (test 31.7 GM/DL 32.2-35.5 lxwc=461) RED CELL DISTRIBUTION WIDTH (BEAKER) (test 14.0 % 11.7-14.4 ndlv=515) PLATELET COUNT (BEAKER) (test kkso=414) 196 K/CU MM 150-450 MEAN PLATELET VOLUME (BEAKER) (test akon=581) 9.9 fL 9.4-12.3 NUCLEATED RED BLOOD CELLS (BEAKER) (test 0 /100 WBC 0-0 fmjd=700) NEUTROPHILS RELATIVE PERCENT (BEAKER) (test 72 % bhmh=384) LYMPHOCYTES RELATIVE PERCENT (BEAKER) (test 18 % lyvk=428) MONOCYTES RELATIVE PERCENT (BEAKER) (test 6 % rvwu=142) EOSINOPHILS RELATIVE PERCENT (BEAKER) (test 4 % vsno=398) BASOPHILS RELATIVE PERCENT (BEAKER) (test 1 % ammm=224) NEUTROPHILS ABSOLUTE COUNT (BEAKER) (test 5.62 K/ L 1.56-6.13 yjls=468) LYMPHOCYTES ABSOLUTE COUNT (BEAKER) (test 1.37 K/ L 1.18-3.74 jvqe=639) MONOCYTES ABSOLUTE COUNT (BEAKER) (test 0.43 K/ L 0.24-0.36 ghqj=407) EOSINOPHILS ABSOLUTE COUNT (BEAKER) (test 0.28 K/ L 0.04-0.36 wbzh=000) BASOPHILS ABSOLUTE COUNT (BEAKER) (test 0.07 K/ L 0.01-0.08 rlxf=537) IMMATURE GRANULOCYTES-RELATIVE PERCENT (BEAKER) 0 % 0-1 (test pnkq=7291) ANTI-MITOCHONDRIAL AB, REFLEX TO [id number] 08:36:00 Test Item Value Reference Range Comments SCAN RESULT (test ozwz=[id number]) OSMOLALITY, [id number] 10:30:00 Test Item Value Reference Range Comments OSMOLALITY, SERUM (BEAKER) (test vrog=538) 301 mOsm/kg 275-295 POCT-GLUCOSE [id number] 08:26:00 Test Item Value Reference Range Comments POC-GLUCOSE METER (BEAKER) 243 mg/dL 70-110 TESTED AT [address] (test mqgx=4605) [facility] [id number] COMPREHENSIVE METABOLIC [id number] 08:05:00 Test Item Value Reference Range Comments TOTAL PROTEIN (BEAKER) 5.5 gm/dL 6.0-8.3 (test gsgx=352) ALBUMIN (BEAKER) (test 3.2 g/dL 3.5-5.0 hftu=6702) ALKALINE PHOSPHATASE 75 U/L 40-150 (BEAKER) (test zxbz=949) BILIRUBIN TOTAL (BEAKER) 0.9 mg/dL 0.2-1.2 (test iimq=409) SODIUM (BEAKER) (test 132 meq/L 136-145 ywmm=002) POTASSIUM (BEAKER) (test 4.3 meq/L 3.5-5.1 ykub=272) CHLORIDE (BEAKER) (test 101 meq/L 98-107 kqww=836) CO2 (BEAKER) (test 25 meq/L 22-29 wklm=685) BLOOD UREA NITROGEN 45 mg/dL 7-21 (BEAKER) (test vimv=081) CREATININE (BEAKER) (test 1.89 mg/dL 0.57-1.25 qaxc=157) GLUCOSE RANDOM (BEAKER) 241 mg/dL 70-105 (test fibp=964) CALCIUM (BEAKER) (test 8.6 mg/dL 8.4-10.2 irag=635) AST (SGOT) (BEAKER) (test 19 U/L 5-34 vcty=557) ALT (SGPT) (BEAKER) (test 10 U/L 6-55 fned=102) EGFR (BEAKER) (test 27 mL/min/1.73 sq m ESTIMATED GFR IS NOT fulv=5227) ACCURATE CREATININE CLEARANCE IN PREDICTING GLOMERULAR FILTRATION RATE. ESTIMATED GFR IS NOT APPLICABLE FOR DIALYSIS PATIENTS. [id number] 08:02:00 Test Item Value Reference Range Comments PHOSPHORUS (BEAKER) (test pgzz=156) 3.6 mg/dL 2.3-4.7 [id number] 08:02:00 Test Item Value Reference Range Comments MAGNESIUM (BEAKER) (test sppi=021) 2.0 mg/dL 1.6-2.6 CBC W/PLT COUNT & AUTO [id number] 05:40:00 Test Item Value Reference Range Comments WHITE BLOOD CELL COUNT (BEAKER) (test pgja=338) 5.7 K/ L 3.5-10.5 RED BLOOD CELL COUNT (BEAKER) (test owta=804) 3.76 M/ L 3.93-5.22 HEMOGLOBIN (BEAKER) (test rwal=129) 10.6 GM/DL 11.2-15.7 HEMATOCRIT (BEAKER) (test xhyp=285) 32.9 % 34.1-44.9 MEAN CORPUSCULAR VOLUME (BEAKER) (test ihej=302) 87.5 fL 79.4-94.8 MEAN CORPUSCULAR HEMOGLOBIN (BEAKER) (test 28.2 pg 25.6-32.2 fhlz=039) MEAN CORPUSCULAR HEMOGLOBIN CONC (BEAKER) (test 32.2 GM/DL 32.2-35.5 noep=701) RED CELL DISTRIBUTION WIDTH (BEAKER) (test 14.2 % 11.7-14.4 lfya=132) PLATELET COUNT (BEAKER) (test cthl=959) 142 K/CU MM 150-450 MEAN PLATELET VOLUME (BEAKER) (test wglq=622) 9.8 fL 9.4-12.3 NUCLEATED RED BLOOD CELLS (BEAKER) (test 0 /100 WBC 0-0 etlm=592) NEUTROPHILS RELATIVE PERCENT (BEAKER) (test 70 % dzzo=824) LYMPHOCYTES RELATIVE PERCENT (BEAKER) (test 19 % xeud=929) MONOCYTES RELATIVE PERCENT (BEAKER) (test 7 % tqjq=638) EOSINOPHILS RELATIVE PERCENT (BEAKER) (test 3 % sfnw=055) BASOPHILS RELATIVE PERCENT (BEAKER) (test 1 % twkl=134) NEUTROPHILS ABSOLUTE COUNT (BEAKER) (test 3.99 K/ L 1.56-6.13 yboo=524) LYMPHOCYTES ABSOLUTE COUNT (BEAKER) (test 1.05 K/ L 1.18-3.74 hpnh=530) MONOCYTES ABSOLUTE COUNT (BEAKER) (test 0.40 K/ L 0.24-0.36 hbzi=343) EOSINOPHILS ABSOLUTE COUNT (BEAKER) (test 0.16 K/ L 0.04-0.36 dria=496) BASOPHILS ABSOLUTE COUNT (BEAKER) (test 0.04 K/ L 0.01-0.08 hozo=545) IMMATURE GRANULOCYTES-RELATIVE PERCENT (BEAKER) 0 % 0-1 (test lkbk=6657) CALCIUM, [id number] 05:17:00 Test Item Value Reference Range Comments CALCIUM IONIZED (BEAKER) (test kgde=117) 1.06 mmol/L 1.12-1.27 PH, BLOOD (BEAKER) (test xysp=3135) 7.41 U/S, RENAL, [id number] 03:59:00Reason for exam:->HEMALATHA/CKDShould this be performed at [...] Wilson Verified Date/Time: 11/24/2018 03:59:04 Reading Location: [address] Transitional Reading Room TROPONIN [id number] 23:19:00 Test Item Value Reference Range Comments TROPONIN I (BEAKER) (test zign=638) < ng/mL 0.00-0.03 Troponin I (TnI) levels [...] acidosis, acute neurological disease, and persistent tachyarrhythmia.POCT-GLUCOSE [id number] 21:12:00 Test Item Value Reference Range Comments POC-GLUCOSE METER (BEAKER) 277 mg/dL 70-110 TESTED AT [address] (test sjgg=9142) [facility] [address] PROTEIN, RANDOM [id number] 20:11:00 Test Item Value Reference Range Comments PROTEIN, URINE (BEAKER) (test mnyc=2178) 10 mg/dL 0-14 SODIUM, RANDOM [id number] 20:05:00 Test Item Value Reference Range Comments SODIUM URINE (BEAKER) (test bybs=332) < meq/L Reference Range: No NormalsPOCT-GLUCOSE [id number] 17:28:00 Test Item Value Reference Range Comments POC-GLUCOSE METER (BEAKER) 291 mg/dL 70-110 TESTED AT [address] (test tnsy=0258) [facility] [address] POCT-GLUCOSE [id number] 14:02:00 Test Item Value Reference Range Comments POC-GLUCOSE METER (BEAKER) 148 mg/dL 70-110 TESTED AT [facility] [address] [facility] (test kjfr=9211) [facility] [address] URINALYSIS W/ [id number] 13:32:00 Test Item Value Reference Range Comments COLOR (BEAKER) (test jqmu=595) Yellow CLARITY (BEAKER) (test dhjk=903) Clear SPECIFIC GRAVITY UA (BEAKER) (test 1.015 1.001-1.035 bict=799) PH UA (BEAKER) (test nlpo=822) 5.0 5.0-8.0 PROTEIN UA (BEAKER) (test ivlb=131) Negative Negative GLUCOSE UA (BEAKER) (test dzac=603) Negative Negative KETONES UA (BEAKER) (test skpw=456) Negative Negative BILIRUBIN UA (BEAKER) (test cqcu=815) Negative Negative BLOOD UA (BEAKER) (test mwrk=315) Negative Negative NITRITE UA (BEAKER) (test bple=415) Negative Negative LEUKOCYTE ESTERASE UA (BEAKER) (test Negative Negative asuz=150) UROBILINOGEN UA (BEAKER) (test qcdw=623) 0.2 mg/dL 0.2-1.0 RBC UA (BEAKER) (test hlav=375) < /HPF WBC UA (BEAKER) (test kthv=197) 2 /HPF BACTERIA (BEAKER) (test yfps=375) Occasional SQUAMOUS EPITHELIAL (BEAKER) (test 19 /HPF pxie=225) HYALINE CASTS (BEAKER) (test ywtw=513) 5 /LPF AMORPHOUS CRYSTALS (BEAKER) (test Occasional xxbe=4843) SOURCE(BEAKER) (test ebst=0262) Urine, Clean Catch U/S, ABDOMINAL, [id number] 13:29:00Abdomen limited area? Add comment if clarification [...] Valles Verified Date/Time: 11/23/2018 13:29:13 Reading Location: [address] Transitional Reading Room U/S, [id number] 13:01:00Reason for exam:->Therapeutic paracentesisFINAL REPORT Paracentesis dated 11/23/2018 Procedure: Ultrasound-guided paracentesis. Preprocedure diagnosis: Ascites Postprocedure diagnosis: Ascites Conscious sedation: None. Radiologist: Giovanni Haas M.D. Folder And Notcher: None Anesthesia: 1% Xylocaine mixed with sodium bicarbonate local anesthesia. Technique: After obtaining informed consent, ultrasound-guided paracentesis was performed under usual sterile technique. Using a 5 divehi drainage catheter , puncture was made in the right lower quadrant abdomen. Approximately 16,200 cc of serous fluid was removed. Patient tolerated the procedure well without complication. Complication: None Graft/Implant: None Estimated Blood Loss: None Impression: Ultrasound-guided paracentesis. Signed: Giovanni Haas Verified Date/Time: 11/23/2018 13:01:25 Reading Location: [facility] [id number] Ortho Consult Reading Room Electronically signedby: GIOVANNI HAAS M.D. on 2018 01:01 PMCBC W/PLT COUNT & AUTO [id number] 08:55:00 Test Item Value Reference Range Comments WHITE BLOOD CELL COUNT (BEAKER) (test fevk=226) 5.7 K/ L 3.5-10.5 RED BLOOD CELL COUNT (BEAKER) (test cuap=735) 3.72 M/ L 3.93-5.22 HEMOGLOBIN (BEAKER) (test agii=405) 10.5 GM/DL 11.2-15.7 HEMATOCRIT (BEAKER) (test poqn=231) 32.5 % 34.1-44.9 MEAN CORPUSCULAR VOLUME (BEAKER) (test fytp=290) 87.4 fL 79.4-94.8 MEAN CORPUSCULAR HEMOGLOBIN (BEAKER) (test 28.2 pg 25.6-32.2 alrr=330) MEAN CORPUSCULAR HEMOGLOBIN CONC (BEAKER) (test 32.3 GM/DL 32.2-35.5 jrxt=586) RED CELL DISTRIBUTION WIDTH (BEAKER) (test 14.5 % 11.7-14.4 rtdh=432) PLATELET COUNT (BEAKER) (test bphb=176) 148 K/CU MM 150-450 MEAN PLATELET VOLUME (BEAKER) (test ncxy=626) 9.4 fL 9.4-12.3 NUCLEATED RED BLOOD CELLS (BEAKER) (test 0 /100 WBC 0-0 wlec=239) NEUTROPHILS RELATIVE PERCENT (BEAKER) (test 63 % ojdj=048) LYMPHOCYTES RELATIVE PERCENT (BEAKER) (test 23 % fdxv=351) MONOCYTES RELATIVE PERCENT (BEAKER) (test 8 % inhm=840) EOSINOPHILS RELATIVE PERCENT (BEAKER) (test 5 % yjsm=821) BASOPHILS RELATIVE PERCENT (BEAKER) (test 1 % hbrf=706) NEUTROPHILS ABSOLUTE COUNT (BEAKER) (test 3.61 K/ L 1.56-6.13 hlxx=670) LYMPHOCYTES ABSOLUTE COUNT (BEAKER) (test 1.29 K/ L 1.18-3.74 ssuj=129) MONOCYTES ABSOLUTE COUNT (BEAKER) (test 0.47 K/ L 0.24-0.36 onzo=265) EOSINOPHILS ABSOLUTE COUNT (BEAKER) (test 0.28 K/ L 0.04-0.36 xisx=710) BASOPHILS ABSOLUTE COUNT (BEAKER) (test 0.05 K/ L 0.01-0.08 fvdb=381) IMMATURE GRANULOCYTES-RELATIVE PERCENT (BEAKER) 0 % 0-1 (test kfmk=3525) POCT-GLUCOSE [id number] 07:43:00 Test Item Value Reference Range Comments POC-GLUCOSE METER (BEAKER) 196 mg/dL 70-110 TESTED AT [facility] [address] [facility] (test fnpf=7964) [facility] [address] [id number] 06:53:00 Test Item Value Reference Range Comments FERRITIN (BEAKER) (test deqq=712) 52 ng/mL 5-275 HEPATITIS B [id number] 06:21:00 Test Item Value Reference Range Comments HEPATITIS B CORE TOTAL ANTIBODY (BEAKER) (test Nonreactive Nonreactive mnzk=444) HEPATITIS B SURFACE ANTIBODY (BEAKER) (test < mIU/mL <8.0 qadq=743) HEPATITIS B SURFACE ANTIGEN (2) (BEAKER) (test Nonreactive Nonreactive mdho=2367) HEPATITIS C [id number] 06:20:00 Test Item Value Reference Range Comments HEPATITIS C ANTIBODY (BEAKER) (test whdv=304) Nonreactive Nonreactive HEPATITIS A [id number] 06:20:00 Test Item Value Reference Range Comments HEPATITIS A IGM ANTIBODY (BEAKER) (test Nonreactive Nonreactive dqhm=393) HEPATITIS A IGG ANTIBODY (BEAKER) (test Nonreactive Nonreactive myyg=0536) ALPHA FETOPROTEIN (AFP), TUMOR [id number] 06:14:00 Test Item Value Reference Range Comments ALPHA-FETOPROTEIN (BEAKER) (test zgbi=6202) 2.1 ng/mL <10.0 COMPREHENSIVE METABOLIC [id number] 06:01:00 Test Item Value Reference Range Comments TOTAL PROTEIN (BEAKER) 5.9 gm/dL 6.0-8.3 (test iukk=712) ALBUMIN (BEAKER) (test 2.9 g/dL 3.5-5.0 bzdo=1863) ALKALINE PHOSPHATASE 96 U/L 40-150 (BEAKER) (test mjsp=594) BILIRUBIN TOTAL (BEAKER) 0.5 mg/dL 0.2-1.2 (test lmyv=493) SODIUM (BEAKER) (test 132 meq/L 136-145 jacl=333) POTASSIUM (BEAKER) (test 4.3 meq/L 3.5-5.1 xigx=993) CHLORIDE (BEAKER) (test 100 meq/L 98-107 qqzz=468) CO2 (BEAKER) (test 26 meq/L 22-29 xctp=062) BLOOD UREA NITROGEN 50 mg/dL 7-21 (BEAKER) (test coan=519) CREATININE (BEAKER) (test 2.27 mg/dL 0.57-1.25 yhyi=865) GLUCOSE RANDOM (BEAKER) 219 mg/dL 70-105 (test hzfe=162) CALCIUM (BEAKER) (test 8.8 mg/dL 8.4-10.2 ukmr=044) AST (SGOT) (BEAKER) (test 22 U/L 5-34 panc=731) ALT (SGPT) (BEAKER) (test 15 U/L 6-55 oznn=949) EGFR (BEAKER) (test 22 mL/min/1.73 sq m ESTIMATED GFR IS NOT wfpn=9485) ACCURATE CREATININE CLEARANCE IN PREDICTING GLOMERULAR FILTRATION RATE. ESTIMATED GFR IS NOT APPLICABLE FOR DIALYSIS PATIENTS. IRON, TIBC, % SAT. (WITHOUT FERRITIN)2018-11-23 05:55:00 Test Item Value Reference Range Comments IRON (BEAKER) (test kahu=049) 46.0 ug/dL 40.0-160.0 TOTAL IRON BINDING CAPACITY (BEAKER) (test 269 ug/dL 250-450 ajvc=310) IRON % SATURATION (2) (BEAKER) (test hnfj=2124) 17 % 20-55 [id number] 05:54:00 Test Item Value Reference Range Comments ALPHA-1 ANTITRYPSIN (BEAKER) (test ksfx=453) 202.70 mg/dL 90.00-200.00 COMPREHENSIVE METABOLIC [id number] 00:16:00 Test Item Value Reference Range Comments TOTAL PROTEIN (BEAKER) 6.8 gm/dL 6.0-8.3 (test nbkf=931) ALBUMIN (BEAKER) (test 3.3 g/dL 3.5-5.0 aapy=1583) ALKALINE PHOSPHATASE 114 U/L 40-150 (BEAKER) (test exkb=601) BILIRUBIN TOTAL (BEAKER) 0.6 mg/dL 0.2-1.2 (test baxx=926) SODIUM (BEAKER) (test 130 meq/L 136-145 sqwd=225) POTASSIUM (BEAKER) (test 4.4 meq/L 3.5-5.1 sebo=501) CHLORIDE (BEAKER) (test 99 meq/L 98-107 yoax=194) CO2 (BEAKER) (test 22 meq/L 22-29 efhn=011) BLOOD UREA NITROGEN 46 mg/dL 7-21 (BEAKER) (test pbjp=489) CREATININE (BEAKER) (test 2.40 mg/dL 0.57-1.25 vsoq=204) GLUCOSE RANDOM (BEAKER) 153 mg/dL 70-105 (test tkzt=993) CALCIUM (BEAKER) (test 9.1 mg/dL 8.4-10.2 tcqs=631) AST (SGOT) (BEAKER) (test 25 U/L 5-34 jmtk=022) ALT (SGPT) (BEAKER) (test 17 U/L 6-55 hsmv=478) EGFR (BEAKER) (test 21 mL/min/1.73 sq m ESTIMATED GFR IS NOT mezy=1469) ACCURATE CREATININE CLEARANCE IN PREDICTING GLOMERULAR FILTRATION RATE. ESTIMATED GFR IS NOT APPLICABLE FOR DIALYSIS PATIENTS. PT/[id number] 23:52:00 Test Item Value Reference Range Comments PROTIME (BEAKER) (test ecpa=556) 13.3 seconds 11.7-14.7 INR (BEAKER) (test dxay=684) 1.0 <=5.9 PARTIAL THROMBOPLASTIN TIME (BEAKER) (test 26.9 seconds 22.5-36.0 kcah=663) RECOMMENDED COUMADIN/WARFARIN INR THERAPY RANGESSTANDARD DOSE: 2.0 - 3.0 Includes: PROPHYLAXIS forvenous thrombosis, systemic embolization; TREATMENT for venous thrombosis and/or pulmonary embolus.HIGH RISK: Target INR is 2.5-3.5 for patients with mechanical heart valves.POCT-GLUCOSE [id number] 21:25:00 Test Item Value Reference Range Comments POC-GLUCOSE METER (BEAKER) 178 mg/dL 70-110 TESTED AT [facility] [address] [facility] (test loaa=7875) [facility] [address]
== END ==
LOC: DS 07:11
PROVIDERS: ATTEND Internal Medicine Hepatology
DX: R18.8 Other ascites (principal)
CPT/HCPCS: 36415; 89050; 85049; 85610; 82565; 85730; 96365; 49083; P9047

== ENCOUNTER → 2019-08-25 | Day surgery (SDC) | payer OTHER ==
[~2019-08-25] MED LIST changes: +ALBUMIN HUMAN 25% 200 ML IV ONE; -ALBUMIN HUMAN 25% 400 ML IV ONE
[2019-08-25 09:02] VITALS: TEMP 98.1; BMI 46.3
[2019-08-25 11:24] VITALS: BP 132/60; O2SAT 96
--- NOTE | 2019-08-25 11:41 | RAD REPORT ---
EXAM DESCRIPTION: US - Paracentesis Proc Guidance - 08/25/2019 9:59 am CLINICAL HISTORY: Ascites COMPARISON: Multiple prior paracentesis procedures. TECHNIQUE: The patient presents for ultrasound-guided paracentesis. The procedure, risks and altern atives were discussed with the patient in detail. Oral and written consent were obtained. Time out p rocedure was performed. The patient had no contraindicated allergy or medication history. PT, INR va lues within acceptable limits. Preliminary sonographic evaluation identified left lower access site. The skin and deeper tissues we re anesthetized with 1 percent lidocaine. Under direct sonographic visualization, a paracentesis cat heter was advanced into the peritoneal cavity. A small quantity of fluid was retained for requested l aboratory studies. Large volume drainage was initiated. Approximately 3.5 liters of ascites removed. At the conclusion of the procedure, catheter was withdrawn and a bandage placed at the puncture site. Postprocedure care and precaution instructions were given to the patient. Patient was transferred t o the same day surgical area for postprocedure monitoring. IMPRESSION: Ultrasound-guided paracentesis as detailed.
== END ==
LOC: DS 08:39
PROVIDERS: ATTEND Registered Nurse
DX: R18.8 Other ascites (principal)
CPT/HCPCS: 36415; 82565; 96365; 49083; P9047

== ENCOUNTER → 2019-09-08 | Day surgery (SDC) | payer OTHER ==
[2019-09-08 08:05] VITALS: BP 114/53; TEMP 97.3; O2SAT 94; BMI 46.3
[2019-09-08 11:06] LABS: Body Fluid Source PERITONEAL; Color of fluid Yellow (COLORLESS)
[2019-09-08 11:11] LABS: Appearance SLT. TURBID (CLEAR); Body Fluid WBC ND /mm^3
--- NOTE | 2019-09-08 12:59 | RAD REPORT ---
EXAM DESCRIPTION: US - Paracentesis Proc Guidance - 09/08/2019 10:04 am CLINICAL HISTORY: Renal disease with ascites FINDINGS: The risks, benefits and alternatives to the procedure were explained to the patient and in formed consent obtained. The skin and subcutaneous tissues were anesthetized with Lidocaine. Under sonographic guidance an 8 F rench catheter was placed into the right lower quadrant. 1.5 liters yellow fluid removed and sent to the lab The patient experienced no immediate complication. IMPRESSION: Paracentesis
--- OUTSIDE RECORDS SUMMARY | 2019-09-13 22:15 | XMS REPORT ---
:1960 [facility] Address [address] [place] [address] Dr. Melton [address] [place] [id number] Care Team Providers Name Role Phone DANIEL [...] Reference Range Comments TOTAL PROTEIN (BEAKER) (test qlwm=303) 6.5 gm/dL 6.0-8.3 ALBUMIN (BEAKER) (test hsmh=4447) 3.0 g/dL 3.5-5.0 BILIRUBIN TOTAL (BEAKER) (test mpnq=579) 1.5 mg/dL 0.2-1.2 BILIRUBIN DIRECT (BEAKER) (test uwem=718) 0.7 mg/dL 0.1-0.5 ALKALINE PHOSPHATASE (BEAKER) (test nxkb=663) 120 U/L 40-150 AST (SGOT) (BEAKER) (test oinz=857) 34 U/L 5-34 ALT (SGPT) (BEAKER) (test jofw=444) 21 U/L 6-55 BASIC METABOLIC [id number] 15:39:00 Test Item Value Reference Range Comments SODIUM (BEAKER) (test 135 meq/L 136-145 gfpl=302) POTASSIUM (BEAKER) (test 3.8 meq/L 3.5-5.1 xbem=354) CHLORIDE (BEAKER) (test 99 meq/L 98-107 lqts=099) CO2 (BEAKER) (test 31 meq/L 22-29 usho=018) BLOOD UREA NITROGEN 21 mg/dL 7-21 (BEAKER) (test etzz=881) CREATININE (BEAKER) (test 1.70 mg/dL 0.57-1.25 wail=534) GLUCOSE RANDOM (BEAKER) 290 mg/dL 70-105 (test wddu=569) CALCIUM (BEAKER) (test 8.4 mg/dL 8.4-10.2 qkjt=008) EGFR (BEAKER) (test 31 mL/min/1.73 sq m ESTIMATED GFR IS NOT qxft=5687) ACCURATE CREATININE CLEARANCE IN PREDICTING GLOMERULAR FILTRATION RATE. ESTIMATED GFR IS NOT APPLICABLE FOR DIALYSIS PATIENTS. PROTHROMBIN [id number] 15:39:00 Test Item Value Reference Range Comments PROTIME (BEAKER) (test arkr=172) 14.2 seconds 11.9-14.2 INR (BEAKER) (test ybms=454) 1.2 <=5.9 Effective 04/01/2019: PT Reference Range ChangeNew: 11.9-14.2 Previous: 11.7- 14.7RECOMMENDED COUMADIN/WARFARIN INR THERAPY RANGESSTANDARD DOSE: 2.0-3.0 Includes: PROPHYLAXIS for venous thrombosis, systemic embolization; TREATMENT for venous thrombosis and/or pulmonary embolus.HIGH RISK: Target INR is2.5-3.5 for patients wiht mechanical heart valves.CBC W/PLT COUNT & AUTO [id number] 15:25:00 Test Item Value Reference Range Comments WHITE BLOOD CELL COUNT (BEAKER) (test oihq=854) 5.8 K/ L 3.5-10.5 RED BLOOD CELL COUNT (BEAKER) (test iagp=120) 3.30 M/ L 3.93-5.22 HEMOGLOBIN (BEAKER) (test srqs=000) 8.9 GM/DL 11.2-15.7 HEMATOCRIT (BEAKER) (test myfh=902) 28.2 % 34.1-44.9 MEAN CORPUSCULAR VOLUME (BEAKER) (test niqg=937) 85.5 fL 79.4-94.8 MEAN CORPUSCULAR HEMOGLOBIN (BEAKER) (test 27.0 pg 25.6-32.2 wqtq=907) MEAN CORPUSCULAR HEMOGLOBIN CONC (BEAKER) (test 31.6 GM/DL 32.2-35.5 zvdk=282) RED CELL DISTRIBUTION WIDTH (BEAKER) (test 16.6 % 11.7-14.4 pivv=658) PLATELET COUNT (BEAKER) (test grrr=313) 185 K/CU MM 150-450 MEAN PLATELET VOLUME (BEAKER) (test tjdw=942) 9.0 fL 9.4-12.3 NUCLEATED RED BLOOD CELLS (BEAKER) (test 0 /100 WBC 0-0 mbrp=486) NEUTROPHILS RELATIVE PERCENT (BEAKER) (test 50 % nyao=677) LYMPHOCYTES RELATIVE PERCENT (BEAKER) (test 32 % vxnn=028) MONOCYTES RELATIVE PERCENT (BEAKER) (test 7 % wuud=282) EOSINOPHILS RELATIVE PERCENT (BEAKER) (test 10 % wpvw=949) BASOPHILS RELATIVE PERCENT (BEAKER) (test 2 % ydiz=042) NEUTROPHILS ABSOLUTE COUNT (BEAKER) (test 2.88 K/ L 1.56-6.13 aobk=110) LYMPHOCYTES ABSOLUTE COUNT (BEAKER) (test 1.86 K/ L 1.18-3.74 hjhc=680) MONOCYTES ABSOLUTE COUNT (BEAKER) (test 0.38 K/ L 0.24-0.36 qgpj=082) EOSINOPHILS ABSOLUTE COUNT (BEAKER) (test 0.55 K/ L 0.04-0.36 rnnp=212) BASOPHILS ABSOLUTE COUNT (BEAKER) (test 0.10 K/ L 0.01-0.08 qdpw=492) IMMATURE GRANULOCYTES-RELATIVE PERCENT (BEAKER) 0 % 0-1 (test ejrf=8941) PROTHROMBIN [id number] 17:20:00 Test Item Value Reference Range Comments PROTIME (BEAKER) (test ayau=259) 13.6 seconds 11.9-14.2 INR (BEAKER) (test visa=084) 1.1 <=5.9 Effective 04/01/2019: PT Reference Range ChangeNew: 11.9-14.2 Previous: 11.7- 14.7RECOMMENDED COUMADIN/WARFARIN INR THERAPY RANGESSTANDARD DOSE: 2.0-3.0 Includes: PROPHYLAXIS for venous thrombosis, systemic embolization; TREATMENT for venous thrombosis and/or pulmonary embolus.HIGH RISK: Target INR is2.5-3.5 for patients wiht mechanical heart valves.HEPATIC FUNCTION [id number] 17:16 :00 Test Item Value Reference Range Comments TOTAL PROTEIN (BEAKER) (test bcan=293) 6.7 gm/dL 6.0-8.3 ALBUMIN (BEAKER) (test tkhr=3712) 3.0 g/dL 3.5-5.0 BILIRUBIN TOTAL (BEAKER) (test qxly=656) 1.4 mg/dL 0.2-1.2 BILIRUBIN DIRECT (BEAKER) (test eesg=129) 0.7 mg/dL 0.1-0.5 ALKALINE PHOSPHATASE (BEAKER) (test naby=887) 139 U/L 40-150 AST (SGOT) (BEAKER) (test zwha=008) 32 U/L 5-34 ALT (SGPT) (BEAKER) (test anpz=825) 16 U/L 6-55 BASIC METABOLIC [id number] 17:16:00 Test Item Value Reference Range Comments SODIUM (BEAKER) (test 139 meq/L 136-145 gdhm=368) POTASSIUM (BEAKER) (test 3.6 meq/L 3.5-5.1 svhn=906) CHLORIDE (BEAKER) (test 99 meq/L 98-107 ikao=738) CO2 (BEAKER) (test 32 meq/L 22-29 zztj=273) BLOOD UREA NITROGEN 26 mg/dL 7-21 (BEAKER) (test kwar=034) CREATININE (BEAKER) (test 1.68 mg/dL 0.57-1.25 uhau=971) GLUCOSE RANDOM (BEAKER) 263 mg/dL 70-105 (test egjt=517) CALCIUM (BEAKER) (test 9.0 mg/dL 8.4-10.2 wxzb=894) EGFR (BEAKER) (test 31 mL/min/1.73 sq m ESTIMATED GFR IS NOT blqf=2125) ACCURATE CREATININE CLEARANCE IN PREDICTING GLOMERULAR FILTRATION RATE. ESTIMATED GFR IS NOT APPLICABLE FOR DIALYSIS PATIENTS. CBC W/PLT COUNT & AUTO [id number] 17:01:00 Test Item Value Reference Range Comments WHITE BLOOD CELL COUNT (BEAKER) (test kryc=906) 7.4 K/ L 3.5-10.5 RED BLOOD CELL COUNT (BEAKER) (test yupv=427) 3.44 M/ L 3.93-5.22 HEMOGLOBIN (BEAKER) (test deow=701) 9.6 GM/DL 11.2-15.7 HEMATOCRIT (BEAKER) (test vbxs=211) 30.1 % 34.1-44.9 MEAN CORPUSCULAR VOLUME (BEAKER) (test roac=226) 87.5 fL 79.4-94.8 MEAN CORPUSCULAR HEMOGLOBIN (BEAKER) (test 27.9 pg 25.6-32.2 yrin=440) MEAN CORPUSCULAR HEMOGLOBIN CONC (BEAKER) (test 31.9 GM/DL 32.2-35.5 mbya=328) RED CELL DISTRIBUTION WIDTH (BEAKER) (test 16.0 % 11.7-14.4 npqm=409) PLATELET COUNT (BEAKER) (test owub=109) 190 K/CU MM 150-450 MEAN PLATELET VOLUME (BEAKER) (test icwq=447) 9.3 fL 9.4-12.3 NUCLEATED RED BLOOD CELLS (BEAKER) (test 0 /100 WBC 0-0 kakl=036) NEUTROPHILS RELATIVE PERCENT (BEAKER) (test 65 % jcmh=638) LYMPHOCYTES RELATIVE PERCENT (BEAKER) (test 23 % brol=019) MONOCYTES RELATIVE PERCENT (BEAKER) (test 6 % ieli=511) EOSINOPHILS RELATIVE PERCENT (BEAKER) (test 5 % hvsm=464) BASOPHILS RELATIVE PERCENT (BEAKER) (test 1 % zudc=688) NEUTROPHILS ABSOLUTE COUNT (BEAKER) (test 4.83 K/ L 1.56-6.13 zxgm=799) LYMPHOCYTES ABSOLUTE COUNT (BEAKER) (test 1.67 K/ L 1.18-3.74 sdsy=935) MONOCYTES ABSOLUTE COUNT (BEAKER) (test 0.41 K/ L 0.24-0.36 mziz=120) EOSINOPHILS ABSOLUTE COUNT (BEAKER) (test 0.40 K/ L 0.04-0.36 hdpf=673) BASOPHILS ABSOLUTE COUNT (BEAKER) (test 0.06 K/ L 0.01-0.08 ugow=466) IMMATURE GRANULOCYTES-RELATIVE PERCENT (BEAKER) 0 % 0-1 (test saut=7811) POCT-GLUCOSE [id number] 13:48:00 Test Item Value Reference Range Comments POC-GLUCOSE METER (BEAKER) 203 mg/dL 70-[address] [facility] [address] [facility] (test qxzy=5803) [facility] [address] POCT-GLUCOSE [id number] 09:45:00 Test Item Value Reference Range Comments POC-GLUCOSE METER (BEAKER) 168 mg/dL 70-[address] [facility] [address] [facility] (test jucr=8097) [facility] [address] POCT-GLUCOSE [id number] 08:06:00 Test Item Value Reference Range Comments POC-GLUCOSE METER (BEAKER) 177 mg/dL 70-110 TESTED AT [address] (test uvfu=6634) [facility] [address] COMPREHENSIVE METABOLIC [id number] 06:11:00 Test Item Value Reference Range Comments TOTAL PROTEIN (BEAKER) 5.5 gm/dL 6.0-8.3 (test dbco=379) ALBUMIN (BEAKER) (test 3.0 g/dL 3.5-5.0 zfqg=2045) ALKALINE PHOSPHATASE 117 U/L 40-150 (BEAKER) (test sbrt=051) BILIRUBIN TOTAL (BEAKER) 1.2 mg/dL 0.2-1.2 (test hrsa=531) SODIUM (BEAKER) (test 138 meq/L 136-145 ffaq=150) POTASSIUM (BEAKER) (test 4.1 meq/L 3.5-5.1 muka=459) CHLORIDE (BEAKER) (test 102 meq/L 98-107 umry=934) CO2 (BEAKER) (test 29 meq/L 22-29 hrat=212) BLOOD UREA NITROGEN 23 mg/dL 7-21 (BEAKER) (test ryzp=978) CREATININE (BEAKER) (test 1.26 mg/dL 0.57-1.25 lqrk=649) GLUCOSE RANDOM (BEAKER) 177 mg/dL 70-105 (test bysb=967) CALCIUM (BEAKER) (test 8.3 mg/dL 8.4-10.2 pozj=844) AST (SGOT) (BEAKER) (test 26 U/L 5-34 ccoj=503) ALT (SGPT) (BEAKER) (test 9 U/L 6-55 ibni=834) EGFR (BEAKER) (test 43 mL/min/1.73 sq m ESTIMATED GFR IS NOT avnu=7739) ACCURATE CREATININE CLEARANCE IN PREDICTING GLOMERULAR FILTRATION RATE. ESTIMATED GFR IS NOT APPLICABLE FOR DIALYSIS PATIENTS. CBC (HEMOGRAM ONLY)2019-06-03 05:17:00 Test Item Value Reference Range Comments WHITE BLOOD CELL COUNT (BEAKER) (test ymop=523) 6.0 K/ L 3.5-10.5 RED BLOOD CELL COUNT (BEAKER) (test svnr=753) 2.95 M/ L 3.93-5.22 HEMOGLOBIN (BEAKER) (test bpju=619) 8.1 GM/DL 11.2-15.7 HEMATOCRIT (BEAKER) (test pjvw=959) 26.3 % 34.1-44.9 MEAN CORPUSCULAR VOLUME (BEAKER) (test mptu=677) 89.2 fL 79.4-94.8 MEAN CORPUSCULAR HEMOGLOBIN (BEAKER) (test 27.5 pg 25.6-32.2 rfod=833) MEAN CORPUSCULAR HEMOGLOBIN CONC (BEAKER) (test 30.8 GM/DL 32.2-35.5 lyrg=207) RED CELL DISTRIBUTION WIDTH (BEAKER) (test 17.3 % 11.7-14.4 cxiu=494) PLATELET COUNT (BEAKER) (test rnuh=270) 203 K/CU MM 150-450 MEAN PLATELET VOLUME (BEAKER) (test glbp=154) 9.2 fL 9.4-12.3 NUCLEATED RED BLOOD CELLS (BEAKER) (test 0 /100 WBC 0-0 dnov=529) POCT-GLUCOSE [id number] 23:37:00 Test Item Value Reference Range Comments POC-GLUCOSE METER (BEAKER) 212 mg/dL 70-110 TESTED AT [place] [id number] [facility] (test pvgv=1854) [facility] [address] POCT-GLUCOSE [id number] 16:58:00 Test Item Value Reference Range Comments POC-GLUCOSE METER (BEAKER) 313 mg/dL 70-110 TESTED AT [address] (test sqth=7695) [facility] [address] ANG, TIPSS [id number] 14:25:00Reason for exam:->still recurrent paracentesisFINAL REPORT Procedures:1. [...] the patient's medical record by the nurse. [employer] Manager: Akil Chung MD. Car Salter: MD Ishaan (Fellow) Approach: 1. Right lower [...] skin and deep soft tissues. A 5 Venezuelan one-step catheter wasinserted and removed from the [...] The needle was exchanged for a 4 [place]an micropuncture sheath. The micropuncture sheath was exchanged over a 0.035 Bentson wire for a 5 [place]an x 10 cm vascular sheath. The TIPS stent was then cannulated using a 5 [place]an C2 catheter and 0.035 angled Glidewire. The [...] Verified Date/Time: 06/02/2019 14:25:34 Reading Location : [place] [address] Angio Body Reading Room POCT-GLUCOSE [id number] 11:52:00 Test Item Value Reference Range Comments POC-GLUCOSE METER (BEAKER) 159 mg/dL 70-[address] [facility] [address] [facility] (test gelz=3161) [facility] [address] [id number] 05:55:00 Test Item Value Reference Range Comments MAGNESIUM (BEAKER) (test elli=527) 1.6 mg/dL 1.6-2.6 COMPREHENSIVE METABOLIC [id number] 05:55:00 Test Item Value Reference Range Comments TOTAL PROTEIN (BEAKER) 5.7 gm/dL 6.0-8.3 (test qlri=085) ALBUMIN (BEAKER) (test 3.3 g/dL 3.5-5.0 grvh=6408) ALKALINE PHOSPHATASE 118 U/L 40-150 (BEAKER) (test uwfl=306) BILIRUBIN TOTAL (BEAKER) 1.4 mg/dL 0.2-1.2 (test jonx=372) SODIUM (BEAKER) (test 140 meq/L 136-145 ecfj=120) POTASSIUM (BEAKER) (test 3.3 meq/L 3.5-5.1 stqj=560) CHLORIDE (BEAKER) (test 101 meq/L 98-107 vson=927) CO2 (BEAKER) (test 31 meq/L 22-29 hisc=688) BLOOD UREA NITROGEN 23 mg/dL 7-21 (BEAKER) (test zaun=033) CREATININE (BEAKER) (test 1.33 mg/dL 0.57-1.25 rjmp=645) GLUCOSE RANDOM (BEAKER) 131 mg/dL 70-105 (test kgps=083) CALCIUM (BEAKER) (test 8.7 mg/dL 8.4-10.2 arns=309) AST (SGOT) (BEAKER) (test 27 U/L 5-34 duyx=865) ALT (SGPT) (BEAKER) (test 11 U/L 6-55 lvvt=281) EGFR (BEAKER) (test 41 mL/min/1.73 sq m ESTIMATED GFR IS NOT tugh=5443) ACCURATE CREATININE CLEARANCE IN PREDICTING GLOMERULAR FILTRATION RATE. ESTIMATED GFR IS NOT APPLICABLE FOR DIALYSIS PATIENTS. CBC W/PLT COUNT & AUTO [id number] 05:43:00 Test Item Value Reference Range Comments WHITE BLOOD CELL COUNT (BEAKER) (test yjct=260) 6.0 K/ L 3.5-10.5 RED BLOOD CELL COUNT (BEAKER) (test ymxx=801) 2.97 M/ L 3.93-5.22 HEMOGLOBIN (BEAKER) (test iqnm=118) 8.2 GM/DL 11.2-15.7 HEMATOCRIT (BEAKER) (test upqp=884) 26.0 % 34.1-44.9 MEAN CORPUSCULAR VOLUME (BEAKER) (test uapo=685) 87.5 fL 79.4-94.8 MEAN CORPUSCULAR HEMOGLOBIN (BEAKER) (test 27.6 pg 25.6-32.2 layz=790) MEAN CORPUSCULAR HEMOGLOBIN CONC (BEAKER) (test 31.5 GM/DL 32.2-35.5 tfle=785) RED CELL DISTRIBUTION WIDTH (BEAKER) (test 17.7 % 11.7-14.4 tgpt=132) PLATELET COUNT (BEAKER) (test nzoi=319) 194 K/CU MM 150-450 MEAN PLATELET VOLUME (BEAKER) (test ccif=654) 9.3 fL 9.4-12.3 NUCLEATED RED BLOOD CELLS (BEAKER) (test 0 /100 WBC 0-0 duoy=029) NEUTROPHILS RELATIVE PERCENT (BEAKER) (test 48 % cqxk=702) LYMPHOCYTES RELATIVE PERCENT (BEAKER) (test 31 % adyz=065) MONOCYTES RELATIVE PERCENT (BEAKER) (test 10 % zkmw=352) EOSINOPHILS RELATIVE PERCENT (BEAKER) (test 9 % rzkf=957) BASOPHILS RELATIVE PERCENT (BEAKER) (test 1 % cdbs=151) NEUTROPHILS ABSOLUTE COUNT (BEAKER) (test 2.84 K/ L 1.56-6.13 synu=268) LYMPHOCYTES ABSOLUTE COUNT (BEAKER) (test 1.87 K/ L 1.18-3.74 fuir=043) MONOCYTES ABSOLUTE COUNT (BEAKER) (test 0.60 K/ L 0.24-0.36 xrjq=900) EOSINOPHILS ABSOLUTE COUNT (BEAKER) (test 0.56 K/ L 0.04-0.36 sess=173) BASOPHILS ABSOLUTE COUNT (BEAKER) (test 0.08 K/ L 0.01-0.08 rnlt=831) IMMATURE GRANULOCYTES-RELATIVE PERCENT (BEAKER) 0 % 0-1 (test omcg=8816) [id number] 05:42:00 Test Item Value Reference Range Comments PHOSPHORUS (BEAKER) (test ebpe=830) 2.3 mg/dL 2.3-4.7 POCT-GLUCOSE [id number] 22:34:00 Test Item Value Reference Range Comments POC-GLUCOSE METER (BEAKER) 192 mg/dL 70-110 TESTED AT [address] (test osyh=5829) [place] [id number] POCT-GLUCOSE [id number] 17:01:00 Test Item Value Reference Range Comments POC-GLUCOSE METER (BEAKER) 250 mg/dL 70-110 TESTED AT [address] (test svwn=0540) [place] [address] [id number] 07:42:00 Test Item Value Reference Range Comments MAGNESIUM (BEAKER) (test 1.6 mg/dL 1.6-2.6 Specimen slightly hemolyzed lykw=233) [id number] 07:42:00 Test Item Value Reference Range Comments PHOSPHORUS (BEAKER) (test 2.8 mg/dL 2.3-4.7 Specimen slightly hemolyzed eisl=873) COMPREHENSIVE METABOLIC [id number] 07:42:00 Test Item Value Reference Range Comments TOTAL PROTEIN (BEAKER) 5.5 gm/dL 6.0-8.3 Specimen slightly (test xvke=967) hemolyzed ALBUMIN (BEAKER) (test 2.9 g/dL 3.5-5.0 Specimen slightly bgqe=3325) hemolyzed ALKALINE PHOSPHATASE 125 U/L 40-150 (BEAKER) (test kipw=943) BILIRUBIN TOTAL (BEAKER) 1.1 mg/dL 0.2-1.2 Specimen slightly (test vycy=936) hemolyzed SODIUM (BEAKER) (test 141 meq/L 136-145 rwou=338) POTASSIUM (BEAKER) (test 3.6 meq/L 3.5-5.1 Specimen slightly dfao=127) hemolyzed CHLORIDE (BEAKER) (test 101 meq/L 98-107 wipc=726) CO2 (BEAKER) (test 31 meq/L 22-29 pbut=026) BLOOD UREA NITROGEN 23 mg/dL 7-21 (BEAKER) (test azcm=126) CREATININE (BEAKER) (test 1.50 mg/dL 0.57-1.25 Specimen slightly qyll=502) hemolyzed GLUCOSE RANDOM (BEAKER) 153 mg/dL 70-105 (test xmte=935) CALCIUM (BEAKER) (test 8.7 mg/dL 8.4-10.2 hfqv=495) AST (SGOT) (BEAKER) (test 35 U/L 5-34 Specimen slightly iqzv=093) hemolyzed ALT (SGPT) (BEAKER) (test 12 U/L 6-55 Specimen slightly dgtz=588) hemolyzed EGFR (BEAKER) (test 35 mL/min/1.73 sq m ESTIMATED GFR IS NOT xcne=4021) ACCURATE CREATININE CLEARANCE IN PREDICTING GLOMERULAR FILTRATION RATE. ESTIMATED GFR IS NOT APPLICABLE FOR DIALYSIS PATIENTS. POCT-GLUCOSE [id number] 07:38:00 Test Item Value Reference Range Comments POC-GLUCOSE METER (BEAKER) 154 mg/dL 70-[address] [facility] [address] [facility] (test ijzz=6467) [facility] [address] CBC W/PLT COUNT & AUTO [id number] 06:24:00 Test Item Value Reference Range Comments WHITE BLOOD CELL COUNT (BEAKER) (test ksyr=699) 6.0 K/ L 3.5-10.5 RED BLOOD CELL COUNT (BEAKER) (test mdct=224) 3.09 M/ L 3.93-5.22 HEMOGLOBIN (BEAKER) (test gdal=641) 8.5 GM/DL 11.2-15.7 HEMATOCRIT (BEAKER) (test asif=256) 27.0 % 34.1-44.9 MEAN CORPUSCULAR VOLUME (BEAKER) (test taki=029) 87.4 fL 79.4-94.8 MEAN CORPUSCULAR HEMOGLOBIN (BEAKER) (test 27.5 pg 25.6-32.2 boxj=893) MEAN CORPUSCULAR HEMOGLOBIN CONC (BEAKER) (test 31.5 GM/DL 32.2-35.5 ilbt=135) RED CELL DISTRIBUTION WIDTH (BEAKER) (test 17.7 % 11.7-14.4 ukro=963) PLATELET COUNT (BEAKER) (test uvbq=239) 196 K/CU MM 150-450 MEAN PLATELET VOLUME (BEAKER) (test ancb=804) 8.9 fL 9.4-12.3 NUCLEATED RED BLOOD CELLS (BEAKER) (test 0 /100 WBC 0-0 ydcm=925) NEUTROPHILS RELATIVE PERCENT (BEAKER) (test 44 % fcvc=913) LYMPHOCYTES RELATIVE PERCENT (BEAKER) (test 34 % vipn=357) MONOCYTES RELATIVE PERCENT (BEAKER) (test 11 % otaz=573) EOSINOPHILS RELATIVE PERCENT (BEAKER) (test 9 % yztk=304) BASOPHILS RELATIVE PERCENT (BEAKER) (test 2 % pefw=065) NEUTROPHILS ABSOLUTE COUNT (BEAKER) (test 2.64 K/ L 1.56-6.13 ncvp=229) LYMPHOCYTES ABSOLUTE COUNT (BEAKER) (test 2.03 K/ L 1.18-3.74 pyhc=459) MONOCYTES ABSOLUTE COUNT (BEAKER) (test 0.64 K/ L 0.24-0.36 hiyv=894) EOSINOPHILS ABSOLUTE COUNT (BEAKER) (test 0.54 K/ L 0.04-0.36 dprh=036) BASOPHILS ABSOLUTE COUNT (BEAKER) (test 0.09 K/ L 0.01-0.08 otjj=459) IMMATURE GRANULOCYTES-RELATIVE PERCENT (BEAKER) 0 % 0-1 (test xftm=3314) CALCIUM, [id number] 05:35:00 Test Item Value Reference Range Comments CALCIUM IONIZED (BEAKER) (test okig=636) 0.99 mmol/L 1.12-1.27 PH, BLOOD (BEAKER) (test grph=3379) 7.50 POCT-GLUCOSE [id number] 22:12:00 Test Item Value Reference Range Comments POC-GLUCOSE METER (BEAKER) 246 mg/dL 70-110 TESTED AT [address] (test hnlv=0025) [facility] [address] POCT-GLUCOSE [id number] 17:11:00 Test Item Value Reference Range Comments POC-GLUCOSE METER (BEAKER) 201 mg/dL 70-[address] [facility] [address] [facility] (test tntf=3896) [facility] [address] POCT-GLUCOSE [id number] 13:24:00 Test Item Value Reference Range Comments POC-GLUCOSE METER (BEAKER) 173 mg/dL 70-110 TESTED AT [place] [id number] [facility] (test upil=2845) [facility] [address] COMPREHENSIVE METABOLIC [id number] 09:06:00 Test Item Value Reference Range Comments TOTAL PROTEIN (BEAKER) 5.8 gm/dL 6.0-8.3 (test nnou=085) ALBUMIN (BEAKER) (test 3.2 g/dL 3.5-5.0 lolq=5982) ALKALINE PHOSPHATASE 125 U/L 40-150 (BEAKER) (test cuyh=251) BILIRUBIN TOTAL (BEAKER) 1.6 mg/dL 0.2-1.2 (test vxkj=002) SODIUM (BEAKER) (test 140 meq/L 136-145 anku=382) POTASSIUM (BEAKER) (test 3.4 meq/L 3.5-5.1 cpld=166) CHLORIDE (BEAKER) (test 100 meq/L 98-107 odpk=029) CO2 (BEAKER) (test 31 meq/L 22-29 tols=568) BLOOD UREA NITROGEN 21 mg/dL 7-21 (BEAKER) (test lqov=073) CREATININE (BEAKER) (test 1.57 mg/dL 0.57-1.25 klie=547) GLUCOSE RANDOM (BEAKER) 138 mg/dL 70-105 (test olui=704) CALCIUM (BEAKER) (test 8.9 mg/dL 8.4-10.2 czgv=659) AST (SGOT) (BEAKER) (test 33 U/L 5-34 lcbl=681) ALT (SGPT) (BEAKER) (test 13 U/L 6-55 mttz=492) EGFR (BEAKER) (test 33 mL/min/1.73 sq m ESTIMATED GFR IS NOT hjet=8008) ACCURATE CREATININE CLEARANCE IN PREDICTING GLOMERULAR FILTRATION RATE. ESTIMATED GFR IS NOT APPLICABLE FOR DIALYSIS PATIENTS. Specimen slightly ictericPOCT-GLUCOSE [id number] 07:53:00 Test Item Value Reference Range Comments POC-GLUCOSE METER (BEAKER) 157 mg/dL 70-110 TESTED AT [address] (test bqff=4664) [facility] [address] CBC (HEMOGRAM ONLY)2019-05-31 06:33:00 Test Item Value Reference Range Comments WHITE BLOOD CELL COUNT (BEAKER) (test rcmr=787) 5.7 K/ L 3.5-10.5 RED BLOOD CELL COUNT (BEAKER) (test exju=763) 3.25 M/ L 3.93-5.22 HEMOGLOBIN (BEAKER) (test cqsc=223) 8.9 GM/DL 11.2-15.7 HEMATOCRIT (BEAKER) (test hwwj=262) 28.3 % 34.1-44.9 MEAN CORPUSCULAR VOLUME (BEAKER) (test sela=079) 87.1 fL 79.4-94.8 MEAN CORPUSCULAR HEMOGLOBIN (BEAKER) (test 27.4 pg 25.6-32.2 ovmp=945) MEAN CORPUSCULAR HEMOGLOBIN CONC (BEAKER) (test 31.4 GM/DL 32.2-35.5 mlxb=185) RED CELL DISTRIBUTION WIDTH (BEAKER) (test 17.5 % 11.7-14.4 qlnv=557) PLATELET COUNT (BEAKER) (test lrnn=896) 188 K/CU MM 150-450 MEAN PLATELET VOLUME (BEAKER) (test lqof=952) 9.1 fL 9.4-12.3 NUCLEATED RED BLOOD CELLS (BEAKER) (test 0 /100 WBC 0-0 myez=153) POCT-GLUCOSE [id number] 22:28:00 Test Item Value Reference Range Comments POC-GLUCOSE METER (BEAKER) 193 mg/dL 70-110 TESTED AT [address] (test whwn=9274) [facility] [address] POCT-GLUCOSE [id number] 17:19:00 Test Item Value Reference Range Comments POC-GLUCOSE METER (BEAKER) 155 mg/dL 70-110 TESTED AT [address] (test jzbg=1909) [facility] [address] POCT-GLUCOSE [id number] 12:44:00 Test Item Value Reference Range Comments POC-GLUCOSE METER (BEAKER) 189 mg/dL 70-[address] [facility] [address] [facility] (test gjry=6070) [facility] [address] POCT-GLUCOSE [id number] 08:30:00 Test Item Value Reference Range Comments POC-GLUCOSE METER (BEAKER) 140 mg/dL 70-[address] [facility] [address] [facility] (test lwkp=8057) [facility] [address] [id number] 05:15:00 Test Item Value Reference Range Comments THYROID STIMULATING HORMONE (BEAKER) (test 6.32 uIU/mL 0.35-4.94 pakg=288) T4, [id number] 05:11:00 Test Item Value Reference Range Comments FREE T4 (BEAKER) (test ionn=846) 1.70 ng/dL 0.70-1.48 [id number] 04:53:00 Test Item Value Reference Range Comments PHOSPHORUS (BEAKER) (test tnkr=816) 2.4 mg/dL 2.3-4.7 [id number] 04:53:00 Test Item Value Reference Range Comments MAGNESIUM (BEAKER) (test dgyr=910) 1.8 mg/dL 1.6-2.6 COMPREHENSIVE METABOLIC [id number] 04:53:00 Test Item Value Reference Range Comments TOTAL PROTEIN (BEAKER) 5.1 gm/dL 6.0-8.3 (test mfsf=401) ALBUMIN (BEAKER) (test 2.9 g/dL 3.5-5.0 cipx=7491) ALKALINE PHOSPHATASE 101 U/L 40-150 (BEAKER) (test tmno=414) BILIRUBIN TOTAL (BEAKER) 1.6 mg/dL 0.2-1.2 (test unmb=878) SODIUM (BEAKER) (test 137 meq/L 136-145 klnv=973) POTASSIUM (BEAKER) (test 3.7 meq/L 3.5-5.1 anpn=888) CHLORIDE (BEAKER) (test 99 meq/L 98-107 lwtf=442) CO2 (BEAKER) (test 32 meq/L 22-29 vijw=806) BLOOD UREA NITROGEN 20 mg/dL 7-21 (BEAKER) (test rlgf=135) CREATININE (BEAKER) (test 1.55 mg/dL 0.57-1.25 ihej=526) GLUCOSE RANDOM (BEAKER) 157 mg/dL 70-105 (test tdwn=779) CALCIUM (BEAKER) (test 8.3 mg/dL 8.4-10.2 kebm=481) AST (SGOT) (BEAKER) (test 33 U/L 5-34 jcyv=235) ALT (SGPT) (BEAKER) (test 12 U/L 6-55 wudg=396) EGFR (BEAKER) (test 34 mL/min/1.73 sq m ESTIMATED GFR IS NOT ggcn=7702) ACCURATE CREATININE CLEARANCE IN PREDICTING GLOMERULAR FILTRATION RATE. ESTIMATED GFR IS NOT APPLICABLE FOR DIALYSIS PATIENTS. CBC (HEMOGRAM ONLY)2019-05-30 04:13:00 Test Item Value Reference Range Comments WHITE BLOOD CELL COUNT (BEAKER) (test rhlw=656) 5.3 K/ L 3.5-10.5 RED BLOOD CELL COUNT (BEAKER) (test ncoa=448) 2.75 M/ L 3.93-5.22 HEMOGLOBIN (BEAKER) (test pfpn=520) 7.6 GM/DL 11.2-15.7 HEMATOCRIT (BEAKER) (test rydw=236) 24.2 % 34.1-44.9 MEAN CORPUSCULAR VOLUME (BEAKER) (test mvui=713) 88.0 fL 79.4-94.8 MEAN CORPUSCULAR HEMOGLOBIN (BEAKER) (test 27.6 pg 25.6-32.2 byeo=668) MEAN CORPUSCULAR HEMOGLOBIN CONC (BEAKER) (test 31.4 GM/DL 32.2-35.5 kgji=185) RED CELL DISTRIBUTION WIDTH (BEAKER) (test 17.4 % 11.7-14.4 gyqs=937) PLATELET COUNT (BEAKER) (test usqf=996) 162 K/CU MM 150-450 MEAN PLATELET VOLUME (BEAKER) (test mtpu=914) 9.2 fL 9.4-12.3 NUCLEATED RED BLOOD CELLS (BEAKER) (test 0 /100 WBC 0-0 hogz=867) CALCIUM, [id number] 04:13:00 Test Item Value Reference Range Comments CALCIUM IONIZED (BEAKER) (test wbcb=037) 0.98 mmol/L 1.12-1.27 PH, BLOOD (BEAKER) (test dlnk=3352) 7.58 RAD, CHEST, 2 [id number] 23:47:00Reason for exam:->opacitiesFINAL REPORT Portable chest. HISTORY: [...] Verified Date/Time: 05/29/2019 23:47:08 Reading Location: [address] [address] Consult Reading Room POCT-GLUCOSE [id number] 23:12:00 Test Item Value Reference Range Comments POC-GLUCOSE METER (BEAKER) 192 mg/dL 70-110 TESTED AT [address] (test atgx=5701) [facility] [address] URINALYSIS W/ [id number] 18:14:00 Test Item Value Reference Range Comments COLOR (BEAKER) (test fawc=392) Yellow CLARITY (BEAKER) (test tgcv=678) Clear SPECIFIC GRAVITY UA (BEAKER) (test 1.011 1.001-1.035 fmyw=792) PH UA (BEAKER) (test lgah=703) 8.5 5.0-8.0 PROTEIN UA (BEAKER) (test dzvp=434) 20 mg/dL Negative GLUCOSE UA (BEAKER) (test uckk=441) Negative Negative KETONES UA (BEAKER) (test fttv=666) Negative Negative BILIRUBIN UA (BEAKER) (test benz=171) Negative Negative BLOOD UA (BEAKER) (test wivy=595) Negative Negative NITRITE UA (BEAKER) (test qfmw=552) Negative Negative LEUKOCYTE ESTERASE UA (BEAKER) (test Negative Negative cmdw=764) UROBILINOGEN UA (BEAKER) (test nvix=177) 12.0 mg/dL 0.2-1.0 RBC UA (BEAKER) (test zpzt=111) < /HPF WBC UA (BEAKER) (test slxu=117) 1 /HPF BACTERIA (BEAKER) (test snnk=777) Rare SQUAMOUS EPITHELIAL (BEAKER) (test 3 /HPF wkfn=281) SOURCE(BEAKER) (test oflj=9228) Urine, Clean Catch POCT-GLUCOSE [id number] 16:55:00 Test Item Value Reference Range Comments POC-GLUCOSE METER (BEAKER) 186 mg/dL 70-110 TESTED AT [address] (test ktsf=6431) [facility] [address] TISSUE [id number] 15:15:00Surgical Pathology Report Case: [id number] Authorizing Provider: Shannen Giron MD Collected: 05/28/2019 1448 Ordering Location: [address] Received: 05/29/2019 0915 Service Pathologist: Padilla Reed MD Specimen: Polyp, Colon - Right/Ascending, taken by doug pathak PART A RIGHT ASCENDING COLON POLYP, POLYPECTOMY:TUBULAR ADENOMA. Signing Pathologist Direct Phone Line: [phone] signed by Padilla Reed MD on 05/29/2019 at 3:15 [id number] colonoscopyRight ascending colonReceived in formalin, labelled with the patients name, date of , and medical record number and labelled "right ascending colon polyp" are three portions of silva tissue measuring 0.5 x 0.4 x 0.3 cm in aggregate. Submitted in toto in one cassette. Performed.BODY FLUID CULTURE + GRAM [id number] 12:56:00 Test Item Value Reference Range Comments CULTURE (BEAKER) (test gowy=3612) No growth GRAM STAIN RESULT (BEAKER) (test No WBCs wtdr=5383) GRAM STAIN RESULT (BEAKER) (test No organisms seen efop=06027) POCT-GLUCOSE [id number] 12:37:00 Test Item Value Reference Range Comments POC-GLUCOSE METER (BEAKER) 154 mg/dL 70-110 TESTED AT [address] (test bwxr=0537) [place] [id number] POCT-GLUCOSE [id number] 09:12:00 Test Item Value Reference Range Comments POC-GLUCOSE METER (BEAKER) 76 mg/dL 70-110 TESTED AT [address] (test kfnt=8020) [facility] [address] COMPREHENSIVE METABOLIC [id number] 08:19:00 Test Item Value Reference Range Comments TOTAL PROTEIN (BEAKER) 4.9 gm/dL 6.0-8.3 (test ayqo=537) ALBUMIN (BEAKER) (test 3.0 g/dL 3.5-5.0 hsnc=0404) ALKALINE PHOSPHATASE 88 U/L 40-150 (BEAKER) (test wsxf=950) BILIRUBIN TOTAL (BEAKER) 1.9 mg/dL 0.2-1.2 (test ztpf=750) SODIUM (BEAKER) (test 141 meq/L 136-145 ocgn=550) POTASSIUM (BEAKER) (test 3.5 meq/L 3.5-5.1 netj=666) CHLORIDE (BEAKER) (test 100 meq/L 98-107 wiuw=605) CO2 (BEAKER) (test 34 meq/L 22-29 uozw=941) BLOOD UREA NITROGEN 18 mg/dL 7-21 (BEAKER) (test ghwj=138) CREATININE (BEAKER) (test 1.50 mg/dL 0.57-1.25 czpz=938) GLUCOSE RANDOM (BEAKER) 92 mg/dL 70-105 (test jarn=151) CALCIUM (BEAKER) (test 8.5 mg/dL 8.4-10.2 nzxy=215) AST (SGOT) (BEAKER) (test 27 U/L 5-34 djqm=388) ALT (SGPT) (BEAKER) (test 10 U/L 6-55 brta=111) EGFR (BEAKER) (test 35 mL/min/1.73 sq m ESTIMATED GFR IS NOT lpdp=1065) ACCURATE CREATININE CLEARANCE IN PREDICTING GLOMERULAR FILTRATION RATE. ESTIMATED GFR IS NOT APPLICABLE FOR DIALYSIS PATIENTS. Specimen slightly [id number] 08:18:00 Test Item Value Reference Range Comments PHOSPHORUS (BEAKER) (test vhbx=735) 2.8 mg/dL 2.3-4.7 [id number] 08:18:00 Test Item Value Reference Range Comments MAGNESIUM (BEAKER) (test kkoy=430) 2.0 mg/dL 1.6-2.6 CBC W/PLT COUNT & AUTO [id number] 05:59:00 Test Item Value Reference Range Comments WHITE BLOOD CELL COUNT (BEAKER) (test guqa=524) 5.3 K/ L 3.5-10.5 RED BLOOD CELL COUNT (BEAKER) (test bbhm=058) 2.79 M/ L 3.93-5.22 HEMOGLOBIN (BEAKER) (test jqkx=449) 7.7 GM/DL 11.2-15.7 HEMATOCRIT (BEAKER) (test sicg=284) 24.8 % 34.1-44.9 MEAN CORPUSCULAR VOLUME (BEAKER) (test mcic=716) 88.9 fL 79.4-94.8 MEAN CORPUSCULAR HEMOGLOBIN (BEAKER) (test 27.6 pg 25.6-32.2 mgug=402) MEAN CORPUSCULAR HEMOGLOBIN CONC (BEAKER) (test 31.0 GM/DL 32.2-35.5 jgcs=346) RED CELL DISTRIBUTION WIDTH (BEAKER) (test 17.6 % 11.7-14.4 tmkj=313) PLATELET COUNT (BEAKER) (test pbfu=183) 146 K/CU MM 150-450 MEAN PLATELET VOLUME (BEAKER) (test kfrf=366) 9.6 fL 9.4-12.3 NUCLEATED RED BLOOD CELLS (BEAKER) (test 0 /100 WBC 0-0 ywlg=512) NEUTROPHILS RELATIVE PERCENT (BEAKER) (test 46 % wxrw=236) LYMPHOCYTES RELATIVE PERCENT (BEAKER) (test 31 % sdnr=810) MONOCYTES RELATIVE PERCENT (BEAKER) (test 11 % qwgk=682) EOSINOPHILS RELATIVE PERCENT (BEAKER) (test 10 % axhl=386) BASOPHILS RELATIVE PERCENT (BEAKER) (test 2 % emkd=062) NEUTROPHILS ABSOLUTE COUNT (BEAKER) (test 2.46 K/ L 1.56-6.13 nqfi=512) LYMPHOCYTES ABSOLUTE COUNT (BEAKER) (test 1.66 K/ L 1.18-3.74 lzpb=277) MONOCYTES ABSOLUTE COUNT (BEAKER) (test 0.57 K/ L 0.24-0.36 hphj=140) EOSINOPHILS ABSOLUTE COUNT (BEAKER) (test 0.52 K/ L 0.04-0.36 ltnd=040) BASOPHILS ABSOLUTE COUNT (BEAKER) (test 0.08 K/ L 0.01-0.08 ugvd=857) IMMATURE GRANULOCYTES-RELATIVE PERCENT (BEAKER) 0 % 0-1 (test xopl=8059) CALCIUM, [id number] 05:04:00 Test Item Value Reference Range Comments CALCIUM IONIZED (BEAKER) (test ovzw=728) 1.02 mmol/L 1.12-1.27 PH, BLOOD (BEAKER) (test rqhy=1315) 7.50 POCT-GLUCOSE [id number] 21:27:00 Test Item Value Reference Range Comments POC-GLUCOSE METER (BEAKER) 139 mg/dL 70-110 TESTED AT [address] (test yvwd=7161) [place] [address] BASIC METABOLIC [id number] 18:28:00 Test Item Value Reference Range Comments SODIUM (BEAKER) (test 142 meq/L 136-145 zume=595) POTASSIUM (BEAKER) (test 3.5 meq/L 3.5-5.1 ksek=470) CHLORIDE (BEAKER) (test 99 meq/L 98-107 qxux=445) CO2 (BEAKER) (test 37 meq/L 22-29 fnva=800) BLOOD UREA NITROGEN 17 mg/dL 7-21 (BEAKER) (test vkqw=344) CREATININE (BEAKER) (test 1.38 mg/dL 0.57-1.25 rppd=893) GLUCOSE RANDOM (BEAKER) 78 mg/dL 70-105 (test jiyf=129) CALCIUM (BEAKER) (test 8.5 mg/dL 8.4-10.2 yxqz=508) EGFR (BEAKER) (test 39 mL/min/1.73 sq m ESTIMATED GFR IS NOT bolv=5089) ACCURATE CREATININE CLEARANCE IN PREDICTING GLOMERULAR FILTRATION RATE. ESTIMATED GFR IS NOT APPLICABLE FOR DIALYSIS PATIENTS. Call [id number] with resultsSpecimen slightly ictericPOCT-GLUCOSE [id number] 18:10:00 Test Item Value Reference Range Comments POC-GLUCOSE METER (BEAKER) 82 mg/dL 70-110 TESTED AT [address] (test vwyy=2555) [place] [id number] CBC W/PLT COUNT & AUTO [id number] 11:56:00 Test Item Value Reference Range Comments WHITE BLOOD CELL COUNT (BEAKER) (test wmvd=598) 5.0 K/ L 3.5-10.5 RED BLOOD CELL COUNT (BEAKER) (test ebxf=981) 2.82 M/ L 3.93-5.22 HEMOGLOBIN (BEAKER) (test hbvo=734) 7.9 GM/DL 11.2-15.7 HEMATOCRIT (BEAKER) (test oglq=863) 25.0 % 34.1-44.9 MEAN CORPUSCULAR VOLUME (BEAKER) (test rukz=202) 88.7 fL 79.4-94.8 MEAN CORPUSCULAR HEMOGLOBIN (BEAKER) (test 28.0 pg 25.6-32.2 ltcc=168) MEAN CORPUSCULAR HEMOGLOBIN CONC (BEAKER) (test 31.6 GM/DL 32.2-35.5 eqhb=841) RED CELL DISTRIBUTION WIDTH (BEAKER) (test 17.6 % 11.7-14.4 dayl=035) PLATELET COUNT (BEAKER) (test qxzg=450) 155 K/CU MM 150-450 MEAN PLATELET VOLUME (BEAKER) (test bzfq=725) 9.5 fL 9.4-12.3 NUCLEATED RED BLOOD CELLS (BEAKER) (test 0 /100 WBC 0-0 ihja=568) (CELLAVISION MANUAL DIFF)2019-05-28 11:56:00 Test Item Value Reference Range Comments NEUTROPHILS - REL (CELLAVISION)(BEAKER) (test 69 % suor=9356) LYMPHOCYTES - REL (CELLAVISION)(BEAKER) (test 21 % lajg=2799) MONOCYTES - REL (CELLAVISION)(BEAKER) (test 3 % zpqe=5488) EOSINOPHILS - REL (CELLAVISION)(BEAKER) (test 5 % ajrm=0795) BASOPHILS - REL (CELLAVISION)(BEAKER) (test 1 % rall=0031) MYELOCYTES - REL (CELLAVISION)(BEAKER) (test 1 % 0-0 oizy=8246) NEUTROPHILS - ABS (CELLAVISION)(BEAKER) (test 3.45 K/ul 1.56-6.13 qmbr=4633) LYMPHOCYTES - ABS (CELLAVISION)(BEAKER) (test 1.05 K/ul 1.18-3.74 epqv=3567) MONOCYTES - ABS (CELLAVISION)(BEAKER) (test 0.15 K/uL 0.24-0.36 ndrb=6561) EOSINOPHILS - ABS (CELLAVISION)(BEAKER) (test 0.25 K/uL 0.04-0.36 nkjd=1972) BASOPHILS - ABS (CELLAVISION)(BEAKER) (test 0.05 K/uL 0.01-0.08 saoh=0065) MYELOCYTES-ABS (CELLAVISION)(BEAKER) (test 0.05 K/uL 0.00-0.00 tdwq=1815) TOTAL COUNTED (BEAKER) (test vadr=4084) 100 PLT MORPHOLOGY (BEAKER) (test xbjl=152) Normal SMUDGE CELLS (BEAKER) (test ritu=8804) Present POLYCHROMATOPHILLIC RBCS(BEAKER) (test ypnf=438) 1+ few ANISOCYTOSIS (BEAKER) (test seic=667) 2+ moderate MICROCYTES (BEAKER) (test jdup=401) 2+ moderate POIKILOCYTES (BEAKER) (test zjxa=609) 1+ few SPHEROCYTES (BEAKER) (test nktt=758) 1+ few PLATELET CONCENTRATION (CELLAVISION)(BEAKER) Adequate (test pkmd=8620) Received comment: User comments: Slide comments:POCT-GLUCOSE [id number] 10: 05:00 Test Item Value Reference Range Comments POC-GLUCOSE METER (BEAKER) 82 mg/dL 70-110 TESTED AT [address] (test mbut=6119) [facility] [address] POCT-GLUCOSE [id number] 09:07:00 Test Item Value Reference Range Comments POC-GLUCOSE METER (BEAKER) 84 mg/dL 70-110 TESTED AT [address] (test khwy=6821) [facility] [address] [id number] 06:31:00 Test Item Value Reference Range Comments PHOSPHORUS (BEAKER) (test jngw=654) 2.5 mg/dL 2.3-4.7 [id number] 06:31:00 Test Item Value Reference Range Comments MAGNESIUM (BEAKER) (test gyjh=955) 1.7 mg/dL 1.6-2.6 COMPREHENSIVE METABOLIC [id number] 06:31:00 Test Item Value Reference Range Comments TOTAL PROTEIN (BEAKER) 4.9 gm/dL 6.0-8.3 (test ylgr=592) ALBUMIN (BEAKER) (test 3.1 g/dL 3.5-5.0 mcjv=4605) ALKALINE PHOSPHATASE 82 U/L 40-150 (BEAKER) (test vzmx=878) BILIRUBIN TOTAL (BEAKER) 2.3 mg/dL 0.2-1.2 (test benr=656) SODIUM (BEAKER) (test 143 meq/L 136-145 mbgl=379) POTASSIUM (BEAKER) (test 3.5 meq/L 3.5-5.1 hrpn=459) CHLORIDE (BEAKER) (test 100 meq/L 98-107 kiak=449) CO2 (BEAKER) (test 37 meq/L 22-29 eonn=614) BLOOD UREA NITROGEN 16 mg/dL 7-21 (BEAKER) (test wfty=717) CREATININE (BEAKER) (test 1.37 mg/dL 0.57-1.25 icgn=283) GLUCOSE RANDOM (BEAKER) 96 mg/dL 70-105 (test jfti=488) CALCIUM (BEAKER) (test 8.6 mg/dL 8.4-10.2 nmwn=847) AST (SGOT) (BEAKER) (test 30 U/L 5-34 jksu=446) ALT (SGPT) (BEAKER) (test 10 U/L 6-55 geuf=607) EGFR (BEAKER) (test 39 mL/min/1.73 sq m ESTIMATED GFR IS NOT cxta=2849) ACCURATE CREATININE CLEARANCE IN PREDICTING GLOMERULAR FILTRATION RATE. ESTIMATED GFR IS NOT APPLICABLE FOR DIALYSIS PATIENTS. Specimen slightly ictericB-TYPE NATRIURETIC FACTOR (BNP)2019-05-28 06:19:00 Test Item Value Reference Range Comments B-TYPE NATRIURETIC PEPTIDE (BEAKER) (test 381 pg/mL 0-100 acjq=709) CALCIUM, [id number] 05:25:00 Test Item Value Reference Range Comments CALCIUM IONIZED (BEAKER) (test xxin=723) 1.03 mmol/L 1.12-1.27 PH, BLOOD (BEAKER) (test fwxa=7698) 7.49 POCT-GLUCOSE [id number] 22:42:00 Test Item Value Reference Range Comments POC-GLUCOSE METER (BEAKER) 174 mg/dL 70-110 TESTED AT [address] (test pqdw=1108) [facility] [address] [id number] 17:57:00 Test Item Value Reference Range Comments SODIUM (BEAKER) (test dsdb=957) 140 meq/L 136-145 POTASSIUM (BEAKER) (test 3.9 meq/L 3.5-5.1 Specimen slightly hemolyzed lzlu=153) CHLORIDE (BEAKER) (test 99 meq/L 98-107 xxcl=277) CO2 (BEAKER) (test tsos=685) 35 meq/L 22-29 Call [id number] 17:50:00 Test Item Value Reference Range Comments POC-GLUCOSE METER (BEAKER) 151 mg/dL 70-110 TESTED AT [address] (test cpur=8879) [place] [address] POCT-GLUCOSE [id number] 12:36:00 Test Item Value Reference Range Comments POC-GLUCOSE METER (BEAKER) 123 mg/dL 70-110 TESTED AT [address] (test tusi=2944) [place] [address] POCT-GLUCOSE [id number] 08:15:00 Test Item Value Reference Range Comments POC-GLUCOSE METER (BEAKER) 121 mg/dL 70-110 TESTED AT [address] (test qteh=9139) [place] [address] [id number] 07:00:00 Test Item Value Reference Range Comments PHOSPHORUS (BEAKER) (test glgr=455) 1.9 mg/dL 2.3-4.7 [id number] 07:00:00 Test Item Value Reference Range Comments MAGNESIUM (BEAKER) (test gzpv=074) 1.6 mg/dL 1.6-2.6 COMPREHENSIVE METABOLIC [id number] 07:00:00 Test Item Value Reference Range Comments TOTAL PROTEIN (BEAKER) 4.9 gm/dL 6.0-8.3 (test tkox=294) ALBUMIN (BEAKER) (test 3.1 g/dL 3.5-5.0 npca=6929) ALKALINE PHOSPHATASE 75 U/L 40-150 (BEAKER) (test pogy=018) BILIRUBIN TOTAL (BEAKER) 1.9 mg/dL 0.2-1.2 (test xbqw=848) SODIUM (BEAKER) (test 139 meq/L 136-145 ndye=818) POTASSIUM (BEAKER) (test 4.3 meq/L 3.5-5.1 qlsd=119) CHLORIDE (BEAKER) (test 99 meq/L 98-107 nyrc=602) CO2 (BEAKER) (test 37 meq/L 22-29 wkfy=800) BLOOD UREA NITROGEN 16 mg/dL 7-21 (BEAKER) (test jver=046) CREATININE (BEAKER) (test 1.29 mg/dL 0.57-1.25 owpi=881) GLUCOSE RANDOM (BEAKER) 139 mg/dL 70-105 (test ifiw=774) CALCIUM (BEAKER) (test 8.5 mg/dL 8.4-10.2 kvvm=189) AST (SGOT) (BEAKER) (test 23 U/L 5-34 mgut=020) ALT (SGPT) (BEAKER) (test 8 U/L 6-55 snkw=337) EGFR (BEAKER) (test 42 mL/min/1.73 sq m ESTIMATED GFR IS NOT qyin=7128) ACCURATE CREATININE CLEARANCE IN PREDICTING GLOMERULAR FILTRATION RATE. ESTIMATED GFR IS NOT APPLICABLE FOR DIALYSIS PATIENTS. Specimen slightly ictericCBC W/PLT COUNT & AUTO [id number] 06:20 :00 Test Item Value Reference Range Comments WHITE BLOOD CELL COUNT (BEAKER) (test ivcx=334) 4.7 K/ L 3.5-10.5 RED BLOOD CELL COUNT (BEAKER) (test kuaa=397) 2.71 M/ L 3.93-5.22 HEMOGLOBIN (BEAKER) (test vsuy=954) 7.5 GM/DL 11.2-15.7 HEMATOCRIT (BEAKER) (test kdlv=594) 23.9 % 34.1-44.9 MEAN CORPUSCULAR VOLUME (BEAKER) (test deql=964) 88.2 fL 79.4-94.8 MEAN CORPUSCULAR HEMOGLOBIN (BEAKER) (test 27.7 pg 25.6-32.2 aqaz=795) MEAN CORPUSCULAR HEMOGLOBIN CONC (BEAKER) (test 31.4 GM/DL 32.2-35.5 gsuj=735) RED CELL DISTRIBUTION WIDTH (BEAKER) (test 17.6 % 11.7-14.4 dwby=275) PLATELET COUNT (BEAKER) (test hqcr=510) 137 K/CU MM 150-450 MEAN PLATELET VOLUME (BEAKER) (test qzno=090) 9.6 fL 9.4-12.3 NUCLEATED RED BLOOD CELLS (BEAKER) (test 0 /100 WBC 0-0 hfcp=449) NEUTROPHILS RELATIVE PERCENT (BEAKER) (test 45 % enqc=737) LYMPHOCYTES RELATIVE PERCENT (BEAKER) (test 33 % thfr=472) MONOCYTES RELATIVE PERCENT (BEAKER) (test 12 % lnrr=045) EOSINOPHILS RELATIVE PERCENT (BEAKER) (test 9 % vknn=309) BASOPHILS RELATIVE PERCENT (BEAKER) (test 1 % hzci=761) NEUTROPHILS ABSOLUTE COUNT (BEAKER) (test 2.13 K/ L 1.56-6.13 vomz=466) LYMPHOCYTES ABSOLUTE COUNT (BEAKER) (test 1.56 K/ L 1.18-3.74 xcwe=032) MONOCYTES ABSOLUTE COUNT (BEAKER) (test 0.57 K/ L 0.24-0.36 prse=811) EOSINOPHILS ABSOLUTE COUNT (BEAKER) (test 0.41 K/ L 0.04-0.36 escg=628) BASOPHILS ABSOLUTE COUNT (BEAKER) (test 0.05 K/ L 0.01-0.08 nppd=967) IMMATURE GRANULOCYTES-RELATIVE PERCENT (BEAKER) 0 % 0-1 (test lzlt=3391) CALCIUM, [id number] 05:29:00 Test Item Value Reference Range Comments CALCIUM IONIZED (BEAKER) (test lbhy=093) 1.02 mmol/L 1.12-1.27 PH, BLOOD (BEAKER) (test mler=1697) 7.53 POCT-GLUCOSE [id number] 22:13:00 Test Item Value Reference Range Comments POC-GLUCOSE METER (BEAKER) 315 mg/dL 70-110 Notified LAEXI ENNIS/TESTED AT [facility] (test qymd=7274) [address] [facility] [address] POCT-GLUCOSE [id number] 18:43:00 Test Item Value Reference Range Comments POC-GLUCOSE METER (BEAKER) 204 mg/dL 70-110 TESTED AT [address] (test jgbz=8695) [facility] [address] U/S, [id number] 17:14:00Reason for exam:->ascitesFINAL REPORT Ultrasound guided paracentesis. Clinical History: Ascites. Sedation: None. Operators: This procedure was performed by SARIKA Lee under direct supervision of Akil Chung M.D. Car Salter: None. Estimated Blood Loss: < 1 cc. [...] was achieved with 2% lidocaine, a 5 [place]an one-step catheter was advanced into the peritoneal cavity under ultrasound guidance. After completion of drainage, the catheter was removed. There was no evidence of complication. Impression:Successful ultrasound guided paracentesis. Signed: Akil Chung MDReport Verified Date/Time: 05/26/2019 17:14:25 Reading Location : [address] Ultrasound Reading Room U/S, [id number] 17:12:00Reason for exam:->ascitesFINAL REPORT Ultrasound guided paracentesis Clinical History: Ascites. Sedation: None. [employer] Manager: Micheline Pena PA-C Supervising Physician: Shravan Ruiz MD Car Salter: None. Estimated Blood Loss: < 1 mL. [...] anesthesia was achieved with lidocaine, a 5 [place] one-step catheter was advanced into theperitoneal cavity under ultrasound guidance. After completion of drainage, the catheter was removed.There was no evidence of complication. Impression:Successful ultrasound guided paracentesis. Signed:Shravan Ruiz Verified Date/Time: 05/26/2019 17:12:51 Reading Location: [address] Ultrasound Reading Room POCT-GLUCOSE [id number] 17:02: 00 Test Item Value Reference Range Comments POC-GLUCOSE METER (BEAKER) 204 mg/dL 70-110 TESTED AT [address] (test npzz=4558) [place] [address] POCT-GLUCOSE [id number] 13:52:00 Test Item Value Reference Range Comments POC-GLUCOSE METER (BEAKER) 185 mg/dL 70-110 TESTED AT [address] (test pmod=3615) [place] [address] BODY FLUID CELL COUNT WITH [id number] 13:12:00 Test Item Value Reference Range Comments APPEARANCE FLUID (BEAKER) (test ldes=397) Slightly Hazy Clear COLOR FLUID (BEAKER) (test jyfk=706) Yellow Colorless, Straw RBC FLUID (BEAKER) (test mhny=465) 3000 /cu mm <=1 ADJUSTED WBC FLUID (BEAKER) (test ulws=0720) 107 /cu mm <=5 LINING CELLS (BEAKER) (test xdzp=7944) 13 /cu mm <=1 NEUTROPHILS FLUID (BEAKER) (test arsr=4779) 0 % LYMPHS FLUID (BEAKER) (test cbkq=173) 21 % MONO/MACROPHAGE FLUID (BEAKER) (test 78 % fujn=557) EOSINOPHILS FLUID (BEAKER) (test irtk=323) 1 % BASO FLUID (BEAKER) (test tyit=737) 0 % CONTAINER BODY FLUID (BEAKER) (test EDTA Tube dywg=8877) POCT-GLUCOSE [id number] 08:40:00 Test Item Value Reference Range Comments POC-GLUCOSE METER (BEAKER) 113 mg/dL 70-110 TESTED AT [address] (test iohm=8755) [place] [address] [id number] 07:18:00 Test Item Value Reference Range Comments T3 TOTAL (BEAKER) (test 34 ng/dL 48-159 Performed at [employer]. Refer. iyym=235) Range:76-181 [id number] 05:45:00 Test Item Value Reference Range Comments PHOSPHORUS (BEAKER) (test skwd=997) 1.7 mg/dL 2.3-4.7 [id number] 05:45:00 Test Item Value Reference Range Comments MAGNESIUM (BEAKER) (test ijpt=978) 1.8 mg/dL 1.6-2.6 COMPREHENSIVE METABOLIC [id number] 05:45:00 Test Item Value Reference Range Comments TOTAL PROTEIN (BEAKER) 5.1 gm/dL 6.0-8.3 (test kfyx=876) ALBUMIN (BEAKER) (test 3.1 g/dL 3.5-5.0 fkop=9358) ALKALINE PHOSPHATASE 88 U/L 40-150 (BEAKER) (test gvdl=478) BILIRUBIN TOTAL (BEAKER) 1.6 mg/dL 0.2-1.2 (test lavf=412) SODIUM (BEAKER) (test 140 meq/L 136-145 wjkx=174) POTASSIUM (BEAKER) (test 3.8 meq/L 3.5-5.1 esui=288) CHLORIDE (BEAKER) (test 100 meq/L 98-107 alvb=643) CO2 (BEAKER) (test 36 meq/L 22-29 ehux=521) BLOOD UREA NITROGEN 16 mg/dL 7-21 (BEAKER) (test copv=371) CREATININE (BEAKER) (test 1.37 mg/dL 0.57-1.25 rwte=879) GLUCOSE RANDOM (BEAKER) 159 mg/dL 70-105 (test hhaw=800) CALCIUM (BEAKER) (test 8.4 mg/dL 8.4-10.2 lyre=835) AST (SGOT) (BEAKER) (test 26 U/L 5-34 gaqj=715) ALT (SGPT) (BEAKER) (test 10 U/L 6-55 ggwz=836) EGFR (BEAKER) (test 39 mL/min/1.73 sq m ESTIMATED GFR IS NOT jcbp=0883) ACCURATE CREATININE CLEARANCE IN PREDICTING GLOMERULAR FILTRATION RATE. ESTIMATED GFR IS NOT APPLICABLE FOR DIALYSIS PATIENTS. CALCIUM, [id number] 05:11:00 Test Item Value Reference Range Comments CALCIUM IONIZED (BEAKER) (test bqzv=043) 0.99 mmol/L 1.12-1.27 PH, BLOOD (BEAKER) (test qnzo=6405) 7.57 CBC W/PLT COUNT & AUTO [id number] 05:04:00 Test Item Value Reference Range Comments WHITE BLOOD CELL COUNT (BEAKER) (test fpdh=511) 4.6 K/ L 3.5-10.5 RED BLOOD CELL COUNT (BEAKER) (test jupf=673) 2.81 M/ L 3.93-5.22 HEMOGLOBIN (BEAKER) (test svle=009) 7.8 GM/DL 11.2-15.7 HEMATOCRIT (BEAKER) (test fvgk=735) 24.6 % 34.1-44.9 MEAN CORPUSCULAR VOLUME (BEAKER) (test doob=325) 87.5 fL 79.4-94.8 MEAN CORPUSCULAR HEMOGLOBIN (BEAKER) (test 27.8 pg 25.6-32.2 lqjl=751) MEAN CORPUSCULAR HEMOGLOBIN CONC (BEAKER) (test 31.7 GM/DL 32.2-35.5 liec=615) RED CELL DISTRIBUTION WIDTH (BEAKER) (test 17.2 % 11.7-14.4 mnbq=684) PLATELET COUNT (BEAKER) (test gzed=695) 129 K/CU MM 150-450 MEAN PLATELET VOLUME (BEAKER) (test fcxi=035) 9.0 fL 9.4-12.3 NUCLEATED RED BLOOD CELLS (BEAKER) (test 0 /100 WBC 0-0 knnw=082) NEUTROPHILS RELATIVE PERCENT (BEAKER) (test 47 % uyve=085) LYMPHOCYTES RELATIVE PERCENT (BEAKER) (test 29 % xlwr=168) MONOCYTES RELATIVE PERCENT (BEAKER) (test 13 % fpqz=772) EOSINOPHILS RELATIVE PERCENT (BEAKER) (test 11 % zpgo=268) BASOPHILS RELATIVE PERCENT (BEAKER) (test 1 % uxud=619) NEUTROPHILS ABSOLUTE COUNT (BEAKER) (test 2.17 K/ L 1.56-6.13 dvtb=308) LYMPHOCYTES ABSOLUTE COUNT (BEAKER) (test 1.32 K/ L 1.18-3.74 yidi=409) MONOCYTES ABSOLUTE COUNT (BEAKER) (test 0.58 K/ L 0.24-0.36 tcuw=084) EOSINOPHILS ABSOLUTE COUNT (BEAKER) (test 0.49 K/ L 0.04-0.36 rsuv=858) BASOPHILS ABSOLUTE COUNT (BEAKER) (test 0.06 K/ L 0.01-0.08 vgyg=760) IMMATURE GRANULOCYTES-RELATIVE PERCENT (BEAKER) 0 % 0-1 (test semj=8447) POCT-GLUCOSE [id number] 23:10:00 Test Item Value Reference Range Comments POC-GLUCOSE METER (BEAKER) 239 mg/dL 70-110 TESTED AT [address] (test ntyj=1833) [place] [address] [id number] 19:02:00 Test Item Value Reference Range Comments SODIUM (BEAKER) (test sygi=605) 138 meq/L 136-145 POTASSIUM (BEAKER) (test kdas=061) 3.7 meq/L 3.5-5.1 CHLORIDE (BEAKER) (test nnci=915) 100 meq/L 98-107 CO2 (BEAKER) (test qybo=593) 31 meq/L 22-29 Call [id number] with resultsPOCT-GLUCOSE [id number] 16:50:00 Test Item Value Reference Range Comments POC-GLUCOSE METER (BEAKER) 203 mg/dL 70-110 TESTED AT [address] (test mrcc=0318) [place] [address] POCT-GLUCOSE [id number] 12:49:00 Test Item Value Reference Range Comments POC-GLUCOSE METER (BEAKER) 219 mg/dL 70-110 TESTED AT [address] (test qxin=5421) [place] [address] ANTI-NUCLEAR ANTIBODY (QUE)2019-05-25 10:03:00 Test Item Value Reference Range Comments ANTI-NUCLEAR ANTIBODY (QUE) (BEAKER) (test Negative Negative jrif=702) Test performed by IFA method.Test performed by IFA method.POCT-GLUCOSE [id number] 08:54:00 Test Item Value Reference Range Comments POC-GLUCOSE METER (BEAKER) 125 mg/dL 70-110 TESTED AT [address] (test hzsv=1699) [place] [address] BASIC METABOLIC [id number] 07:41:00 Test Item Value Reference Range Comments SODIUM (BEAKER) (test 141 meq/L 136-145 ednr=245) POTASSIUM (BEAKER) (test 3.0 meq/L 3.5-5.1 iciq=992) CHLORIDE (BEAKER) (test 101 meq/L 98-107 lash=790) CO2 (BEAKER) (test 35 meq/L 22-29 rels=973) BLOOD UREA NITROGEN 16 mg/dL 7-21 (BEAKER) (test rcgc=104) CREATININE (BEAKER) (test 1.31 mg/dL 0.57-1.25 tcpp=422) GLUCOSE RANDOM (BEAKER) 136 mg/dL 70-105 (test evvv=076) CALCIUM (BEAKER) (test 7.9 mg/dL 8.4-10.2 pvuc=613) EGFR (BEAKER) (test 41 mL/min/1.73 sq m ESTIMATED GFR IS NOT ejud=1857) ACCURATE CREATININE CLEARANCE IN PREDICTING GLOMERULAR FILTRATION RATE. ESTIMATED GFR IS NOT APPLICABLE FOR DIALYSIS PATIENTS. [id number] 07:32:00 Test Item Value Reference Range Comments PHOSPHORUS (BEAKER) (test iulc=717) 2.0 mg/dL 2.3-4.7 [id number] 07:32:00 Test Item Value Reference Range Comments MAGNESIUM (BEAKER) (test hjxf=963) 1.6 mg/dL 1.6-2.6 HEPATIC FUNCTION [id number] 07:32:00 Test Item Value Reference Range Comments TOTAL PROTEIN (BEAKER) (test gbgm=406) 4.9 gm/dL 6.0-8.3 ALBUMIN (BEAKER) (test rmey=3644) 3.0 g/dL 3.5-5.0 BILIRUBIN TOTAL (BEAKER) (test yaty=804) 1.4 mg/dL 0.2-1.2 BILIRUBIN DIRECT (BEAKER) (test xpap=964) 0.7 mg/dL 0.1-0.5 ALKALINE PHOSPHATASE (BEAKER) (test lhuf=670) 86 U/L 40-150 AST (SGOT) (BEAKER) (test iidt=426) 25 U/L 5-34 ALT (SGPT) (BEAKER) (test wsdr=733) 10 U/L 6-55 CBC W/PLT COUNT & AUTO [id number] 06:11:00 Test Item Value Reference Range Comments WHITE BLOOD CELL COUNT (BEAKER) (test sdkr=936) 4.2 K/ L 3.5-10.5 RED BLOOD CELL COUNT (BEAKER) (test hggs=259) 2.68 M/ L 3.93-5.22 HEMOGLOBIN (BEAKER) (test rlho=174) 7.4 GM/DL 11.2-15.7 HEMATOCRIT (BEAKER) (test gskq=791) 23.5 % 34.1-44.9 MEAN CORPUSCULAR VOLUME (BEAKER) (test qogm=093) 87.7 fL 79.4-94.8 MEAN CORPUSCULAR HEMOGLOBIN (BEAKER) (test 27.6 pg 25.6-32.2 fxco=649) MEAN CORPUSCULAR HEMOGLOBIN CONC (BEAKER) (test 31.5 GM/DL 32.2-35.5 gkpa=072) RED CELL DISTRIBUTION WIDTH (BEAKER) (test 18.2 % 11.7-14.4 hhps=746) PLATELET COUNT (BEAKER) (test xrog=942) 140 K/CU MM 150-450 MEAN PLATELET VOLUME (BEAKER) (test faqq=080) 10.3 fL 9.4-12.3 NUCLEATED RED BLOOD CELLS (BEAKER) (test 0 /100 WBC 0-0 zxcf=194) NEUTROPHILS RELATIVE PERCENT (BEAKER) (test 44 % zctm=417) LYMPHOCYTES RELATIVE PERCENT (BEAKER) (test 33 % kzep=752) MONOCYTES RELATIVE PERCENT (BEAKER) (test 12 % zkxj=417) EOSINOPHILS RELATIVE PERCENT (BEAKER) (test 10 % pcwl=907) BASOPHILS RELATIVE PERCENT (BEAKER) (test 2 % cfjy=931) NEUTROPHILS ABSOLUTE COUNT (BEAKER) (test 1.82 K/ L 1.56-6.13 adjz=917) LYMPHOCYTES ABSOLUTE COUNT (BEAKER) (test 1.36 K/ L 1.18-3.74 mzsl=995) MONOCYTES ABSOLUTE COUNT (BEAKER) (test 0.48 K/ L 0.24-0.36 hmyo=188) EOSINOPHILS ABSOLUTE COUNT (BEAKER) (test 0.42 K/ L 0.04-0.36 rbdl=809) BASOPHILS ABSOLUTE COUNT (BEAKER) (test 0.07 K/ L 0.01-0.08 jeej=403) IMMATURE GRANULOCYTES-RELATIVE PERCENT (BEAKER) 0 % 0-1 (test sviq=3716) PROTHROMBIN [id number] 05:31:00 Test Item Value Reference Range Comments PROTIME (BEAKER) (test nsdw=222) 14.8 seconds 11.9-14.2 INR (BEAKER) (test xdox=884) 1.2 <=5.9 Effective 04/01/2019: PT Reference Range ChangeNew: 11.9-14.2 Previous: 11.7- 14.7RECOMMENDED COUMADIN/WARFARIN INR THERAPY RANGESSTANDARD DOSE: 2.0-3.0 Includes: PROPHYLAXIS for venous thrombosis, systemic embolization; TREATMENT for venous thrombosis and/or pulmonary embolus.HIGH RISK: Target INR is2.5-3.5 for patients wiht mechanical heart valves.BLOOD [id number] 02:01:00 Test Item Value Reference Range Comments CULTURE (BEAKER) (test geeq=8688) No growth in 5 days BLOOD [id number] 02:01:00 Test Item Value Reference Range Comments CULTURE (BEAKER) (test uyzx=0498) No growth in 5 days POCT-GLUCOSE [id number] 23:07:00 Test Item Value Reference Range Comments POC-GLUCOSE METER (BEAKER) 217 mg/dL 70-110 TESTED AT [address] (test dciu=8382) [place] [id number] POCT-GLUCOSE [id number] 17:54:00 Test Item Value Reference Range Comments POC-GLUCOSE METER (BEAKER) 138 mg/dL 70-110 TESTED AT [address] (test nvol=7882) [place] [address] POCT-GLUCOSE [id number] 12:22:00 Test Item Value Reference Range Comments POC-GLUCOSE METER (BEAKER) 114 mg/dL 70-110 TESTED AT [address] (test bbgn=5642) [place] [address] POCT-GLUCOSE [id number] 07:39:00 Test Item Value Reference Range Comments POC-GLUCOSE METER (BEAKER) 124 mg/dL 70-110 TESTED AT [address] (test vwpf=7338) [place] [address] HEPATIC FUNCTION [id number] 05:49:00 Test Item Value Reference Range Comments TOTAL PROTEIN (BEAKER) (test gszh=470) 5.1 gm/dL 6.0-8.3 ALBUMIN (BEAKER) (test wgfg=5115) 2.9 g/dL 3.5-5.0 BILIRUBIN TOTAL (BEAKER) (test ooct=861) 1.3 mg/dL 0.2-1.2 BILIRUBIN DIRECT (BEAKER) (test xdmg=799) 0.7 mg/dL 0.1-0.5 ALKALINE PHOSPHATASE (BEAKER) (test ektb=756) 91 U/L 40-150 AST (SGOT) (BEAKER) (test vqsn=738) 30 U/L 5-34 ALT (SGPT) (BEAKER) (test zgvi=718) 10 U/L 6-55 BASIC METABOLIC [id number] 05:49:00 Test Item Value Reference Range Comments SODIUM (BEAKER) (test 140 meq/L 136-145 pkcj=988) POTASSIUM (BEAKER) (test 3.2 meq/L 3.5-5.1 tkbl=582) CHLORIDE (BEAKER) (test 103 meq/L 98-107 jdfg=894) CO2 (BEAKER) (test 27 meq/L 22-29 hqxn=518) BLOOD UREA NITROGEN 17 mg/dL 7-21 (BEAKER) (test zygy=462) CREATININE (BEAKER) (test 1.30 mg/dL 0.57-1.25 eewz=514) GLUCOSE RANDOM (BEAKER) 143 mg/dL 70-105 (test scke=383) CALCIUM (BEAKER) (test 7.9 mg/dL 8.4-10.2 hfcw=650) EGFR (BEAKER) (test 42 mL/min/1.73 sq m ESTIMATED GFR IS NOT bzgn=9250) ACCURATE CREATININE CLEARANCE IN PREDICTING GLOMERULAR FILTRATION RATE. ESTIMATED GFR IS NOT APPLICABLE FOR DIALYSIS PATIENTS. PROTHROMBIN [id number] 05:32:00 Test Item Value Reference Range Comments PROTIME (BEAKER) (test srln=540) 14.7 seconds 11.9-14.2 INR (BEAKER) (test ruxd=538) 1.2 <=5.9 Effective 04/01/2019: PT Reference Range ChangeNew: 11.9-14.2 Previous: 11.7- 14.7RECOMMENDED COUMADIN/WARFARIN INR THERAPY RANGESSTANDARD DOSE: 2.0-3.0 Includes: PROPHYLAXIS for venous thrombosis, systemic embolization; TREATMENT for venous thrombosis and/or pulmonary embolus.HIGH RISK: Target INR is2.5-3.5 for patients wiht mechanical heart valves.CBC W/PLT COUNT & AUTO [id number] 05:09:00 Test Item Value Reference Range Comments WHITE BLOOD CELL COUNT (BEAKER) (test tisg=787) 4.7 K/ L 3.5-10.5 RED BLOOD CELL COUNT (BEAKER) (test sbxh=931) 2.86 M/ L 3.93-5.22 HEMOGLOBIN (BEAKER) (test ymwu=852) 7.9 GM/DL 11.2-15.7 HEMATOCRIT (BEAKER) (test xwfi=793) 25.3 % 34.1-44.9 MEAN CORPUSCULAR VOLUME (BEAKER) (test xrqr=022) 88.5 fL 79.4-94.8 MEAN CORPUSCULAR HEMOGLOBIN (BEAKER) (test 27.6 pg 25.6-32.2 odbe=569) MEAN CORPUSCULAR HEMOGLOBIN CONC (BEAKER) (test 31.2 GM/DL 32.2-35.5 uopc=979) RED CELL DISTRIBUTION WIDTH (BEAKER) (test 17.4 % 11.7-14.4 thsw=538) PLATELET COUNT (BEAKER) (test alnb=811) 141 K/CU MM 150-450 MEAN PLATELET VOLUME (BEAKER) (test mkgp=234) 9.3 fL 9.4-12.3 NUCLEATED RED BLOOD CELLS (BEAKER) (test 0 /100 WBC 0-0 bhib=431) NEUTROPHILS RELATIVE PERCENT (BEAKER) (test 50 % zedi=409) LYMPHOCYTES RELATIVE PERCENT (BEAKER) (test 28 % ggzn=311) MONOCYTES RELATIVE PERCENT (BEAKER) (test 11 % qiyq=715) EOSINOPHILS RELATIVE PERCENT (BEAKER) (test 10 % onol=712) BASOPHILS RELATIVE PERCENT (BEAKER) (test 1 % jxvf=698) NEUTROPHILS ABSOLUTE COUNT (BEAKER) (test 2.33 K/ L 1.56-6.13 hfsc=926) LYMPHOCYTES ABSOLUTE COUNT (BEAKER) (test 1.31 K/ L 1.18-3.74 ybln=807) MONOCYTES ABSOLUTE COUNT (BEAKER) (test 0.51 K/ L 0.24-0.36 qmby=812) EOSINOPHILS ABSOLUTE COUNT (BEAKER) (test 0.46 K/ L 0.04-0.36 isen=318) BASOPHILS ABSOLUTE COUNT (BEAKER) (test 0.06 K/ L 0.01-0.08 wiot=401) IMMATURE GRANULOCYTES-RELATIVE PERCENT (BEAKER) 0 % 0-1 (test rwub=8333) BLOOD GAS, [id number] 22:21:00 Test Item Value Reference Range Comments PH ARTERIAL (BEAKER) (test ynln=224) 7.49 7.35-7.45 PCO2 ARTERIAL (BEAKER) (test mias=323) 43 mmHg 35-45 PO2 ARTERIAL (BEAKER) (test kddt=488) 56 mmHg 80-90 O2 SATURATION ARTERIAL (BEAKER) (test cfnw=081) 92.5 % 96.0-97.0 HCO3 ARTERIAL (BEAKER) (test pmqe=956) 32 mmol/L 21-29 BASE EXCESS ARTERIAL (BEAKER) (test hgps=484) 7.9 mmol/L -2.0-3.0 PATIENT TEMPERATURE (BEAKER) (test yvcs=1653) 35.8 C FIO2 (BEAKER) (test zepy=0284) 21.0 % POCT-GLUCOSE [id number] 21:14:00 Test Item Value Reference Range Comments POC-GLUCOSE METER (BEAKER) 259 mg/dL 70-110 TESTED AT [address] (test fjcz=3774) [place] [address] BODY FLUID CULTURE + GRAM [id number] 18:00:00 Test Item Value Reference Range Comments CULTURE (BEAKER) (test zknv=7040) No growth GRAM STAIN RESULT (BEAKER) (test No WBCs dadz=2708) GRAM STAIN RESULT (BEAKER) (test No organisms seen lbhe=05983) POCT-GLUCOSE [id number] 17:23:00 Test Item Value Reference Range Comments POC-GLUCOSE METER (BEAKER) 201 mg/dL 70-110 TESTED AT [address] (test cqmx=8692) [place] [address] RAD, MANDIBLE, MIN 4 [id number] 15:00:00Reason for exam:->liver transplant evalShould this be [...] Martinez MDReport Verified Date/Time: 05/23/201915:00:10 Reading Location: [address] Transitional Reading Room CRYPTOCOCCAL [id number] 14:59:00 Test Item Value Reference Range Comments CRYPTOCOCCAL ANTIGEN, SERUM (BEAKER) (test Negative Negative, Interference ptzk=5998) [id number] 14:45:00 Test Item Value Reference Range Comments RPR SCREEN (BEAKER) (test diej=257) Nonreactive Nonreactive CYTOMEGALOVIRUS ANTIBODY, [id number] 13:48:00 Test Item Value Reference Range Comments CYTOMEGALOVIRUS, IGG (BEAKER) (test texy=1660) Positive Negative, Equivocal CMV IgG Result Interpretation: </=0.8 Al Negative 0.9-1.0 Al Equivocal &gt ;/=1.1 Al PositiveCYTOMEGALOVIRUS ANTIBODY, [id number] 13:48:00 Test Item Value Reference Range Comments CYTOMEGALOVIRUS IGM ANTIBODY (BEAKER) (test Negative Negative, Equivocal hbry=7530) CMV IgM Result Interpretation: </=0.8 Al Negative 0.9-1.0 Al Equivocal >/=1.1 Al PositiveEBV ANTIBODY, [id number] 13:48:00 Test Item Value Reference Range Comments BERTRAND BOLES VIRAL CAPSID ANTIGEN IGG (BEAKER) Positive Negative, Equivocal (test jxkb=5734) Bertrand Boles Viral Capsid Antigen IgG Result Interpretation: </=0.8 Al Negative 0.9-1.0 Al Equivocal >/=1.1 Al PositiveEBV ANTIBODY, [id number] 13:48:00 Test Item Value Reference Range Comments BERTRAND BOLES VIRAL CAPSID ANTIGEN IGM (BEAKER) Negative Negative, Equivocal (test nhhy=3390) Bertrand Boles Viral Capsid Antigen IgM Result Interpretation: </=0.8 Al Negative 0.9-1.0 Al Equivocal >/=1.1 Al PositiveVARICELLA ZOSTER ANTIBODY , [id number] 13:48:00 Test Item Value Reference Range Comments VARICELLA ZOSTER IGG (AL) (BEAKER) (test aktw=0223) 0.9 VARICELLA ZOSTER RESULT INTERPRETATIONS: <=0.8 Al Nonreactive: Presumed non-immune to VZV 0.9-1.0 Al Equivocal >=1.1 Al Reactive: Presumed immune to VZVRUBELLA ANTIBODY, [id number] 13:48:00 Test Item Value Reference Range Comments RUBELLA IGG QUANTITATION (AKER) (test cpqu=913) 12.0 IU/mL <8.0 Rubella IgG Result Interpretation: </=7.0 IU/mL Negative - Presumed non- immune 8.0 - 9.9 IU/mL Equivocal >=10.0 IU/mL Positive - Presumed immunePOCT-GLUCOSE [id number] 11:41:00 Test Item Value Reference Range Comments POC-GLUCOSE METER (BEAKER) 162 mg/dL 70-110 TESTED AT [address] (test fumg=9435) [facility] [address] POCT-GLUCOSE [id number] 10:06:00 Test Item Value Reference Range Comments POC-GLUCOSE METER (BEAKER) 95 mg/dL 70-110 TESTED AT [address] (test jkmg=3718) [place] [id number] IRON, TIBC, % SAT. (WITHOUT FERRITIN)2019-05-23 07:32:00 Test Item Value Reference Range Comments IRON (BEAKER) (test zpjo=841) 30.0 ug/dL 40.0-160.0 TOTAL IRON BINDING CAPACITY (BEAKER) (test 143 ug/dL 250-450 vdtx=342) IRON % SATURATION (2) (BEAKER) (test qmes=9030) 21 % 20-55 [id number] 06:29:00 Test Item Value Reference Range Comments PHOSPHORUS (BEAKER) (test xquz=043) 1.9 mg/dL 2.3-4.7 [id number] 06:29:00 Test Item Value Reference Range Comments MAGNESIUM (BEAKER) (test kabd=211) 1.5 mg/dL 1.6-2.6 HEPATIC FUNCTION [id number] 06:29:00 Test Item Value Reference Range Comments TOTAL PROTEIN (BEAKER) (test wsii=699) 5.2 gm/dL 6.0-8.3 ALBUMIN (BEAKER) (test zpvh=2434) 3.0 g/dL 3.5-5.0 BILIRUBIN TOTAL (BEAKER) (test chvw=394) 1.6 mg/dL 0.2-1.2 BILIRUBIN DIRECT (BEAKER) (test hywr=112) 0.8 mg/dL 0.1-0.5 ALKALINE PHOSPHATASE (BEAKER) (test cxgr=483) 87 U/L 40-150 AST (SGOT) (BEAKER) (test gaoh=985) 24 U/L 5-34 ALT (SGPT) (BEAKER) (test bowu=342) 11 U/L 6-55 COMPREHENSIVE METABOLIC [id number] 06:29:00 Test Item Value Reference Range Comments TOTAL PROTEIN (BEAKER) 5.2 gm/dL 6.0-8.3 (test uimi=410) ALBUMIN (BEAKER) (test 3.0 g/dL 3.5-5.0 umrm=9106) ALKALINE PHOSPHATASE 87 U/L 40-150 (BEAKER) (test xhlu=072) BILIRUBIN TOTAL (BEAKER) 1.6 mg/dL 0.2-1.2 (test sbym=917) SODIUM (BEAKER) (test 139 meq/L 136-145 vvee=681) POTASSIUM (BEAKER) (test 3.3 meq/L 3.5-5.1 fiqx=815) CHLORIDE (BEAKER) (test 104 meq/L 98-107 kfph=397) CO2 (BEAKER) (test 30 meq/L 22-29 evck=492) BLOOD UREA NITROGEN 18 mg/dL 7-21 (BEAKER) (test fbbf=508) CREATININE (BEAKER) (test 1.41 mg/dL 0.57-1.25 vhio=939) GLUCOSE RANDOM (BEAKER) 102 mg/dL 70-105 (test mubf=809) CALCIUM (BEAKER) (test 8.1 mg/dL 8.4-10.2 wzct=830) AST (SGOT) (BEAKER) (test 24 U/L 5-34 skak=620) ALT (SGPT) (BEAKER) (test 11 U/L 6-55 ctss=090) EGFR (BEAKER) (test 38 mL/min/1.73 sq m ESTIMATED GFR IS NOT vrsx=1439) ACCURATE CREATININE CLEARANCE IN PREDICTING GLOMERULAR FILTRATION RATE. ESTIMATED GFR IS NOT APPLICABLE FOR DIALYSIS PATIENTS. CBC W/PLT COUNT & AUTO [id number] 05:46:00 Test Item Value Reference Range Comments WHITE BLOOD CELL COUNT (BEAKER) (test lkge=646) 4.9 K/ L 3.5-10.5 RED BLOOD CELL COUNT (BEAKER) (test hvsm=519) 2.83 M/ L 3.93-5.22 HEMOGLOBIN (BEAKER) (test imby=532) 8.0 GM/DL 11.2-15.7 HEMATOCRIT (BEAKER) (test dmhb=766) 24.4 % 34.1-44.9 MEAN CORPUSCULAR VOLUME (BEAKER) (test byxl=604) 86.2 fL 79.4-94.8 MEAN CORPUSCULAR HEMOGLOBIN (BEAKER) (test 28.3 pg 25.6-32.2 wrhw=004) MEAN CORPUSCULAR HEMOGLOBIN CONC (BEAKER) (test 32.8 GM/DL 32.2-35.5 hpoo=582) RED CELL DISTRIBUTION WIDTH (BEAKER) (test 17.6 % 11.7-14.4 bdqz=040) PLATELET COUNT (BEAKER) (test oavy=136) 147 K/CU MM 150-450 MEAN PLATELET VOLUME (BEAKER) (test tohy=879) 9.1 fL 9.4-12.3 NUCLEATED RED BLOOD CELLS (BEAKER) (test 0 /100 WBC 0-0 jert=646) NEUTROPHILS RELATIVE PERCENT (BEAKER) (test 51 % azvp=337) LYMPHOCYTES RELATIVE PERCENT (BEAKER) (test 27 % zhwx=439) MONOCYTES RELATIVE PERCENT (BEAKER) (test 11 % zeou=768) EOSINOPHILS RELATIVE PERCENT (BEAKER) (test 10 % ulas=475) BASOPHILS RELATIVE PERCENT (BEAKER) (test 1 % zgtg=817) NEUTROPHILS ABSOLUTE COUNT (BEAKER) (test 2.51 K/ L 1.56-6.13 byxw=841) LYMPHOCYTES ABSOLUTE COUNT (BEAKER) (test 1.30 K/ L 1.18-3.74 wbrw=116) MONOCYTES ABSOLUTE COUNT (BEAKER) (test 0.54 K/ L 0.24-0.36 mkgy=493) EOSINOPHILS ABSOLUTE COUNT (BEAKER) (test 0.48 K/ L 0.04-0.36 lnjc=094) BASOPHILS ABSOLUTE COUNT (BEAKER) (test 0.06 K/ L 0.01-0.08 qipw=566) IMMATURE GRANULOCYTES-RELATIVE PERCENT (BEAKER) 0 % 0-1 (test tgwm=1850) PROTHROMBIN [id number] 05:46:00 Test Item Value Reference Range Comments PROTIME (BEAKER) (test xnly=864) 14.9 seconds 11.9-14.2 INR (BEAKER) (test ycdt=633) 1.2 <=5.9 Effective 04/01/2019: PT Reference Range ChangeNew: 11.9-14.2 Previous: 11.7- 14.7RECOMMENDED COUMADIN/WARFARIN INR THERAPY RANGESSTANDARD DOSE: 2.0-3.0 Includes: PROPHYLAXIS for venous thrombosis, systemic embolization; TREATMENT for venous thrombosis and/or pulmonary embolus.HIGH RISK: Target INR is2.5-3.5 for patients wiht mechanical heart valves.CALCIUM, [id number] 05:44:00 Test Item Value Reference Range Comments CALCIUM IONIZED (BEAKER) (test dpgn=884) 0.99 mmol/L 1.12-1.27 PH, BLOOD (BEAKER) (test glos=5759) 7.48 HEMOGLOBIN [id number] 22:07:00 Test Item Value Reference Range Comments HEMOGLOBIN A1C (BEAKER) (test grlp=435) 8.1 % 4.3-6.1 POCT-GLUCOSE [id number] 21:38:00 Test Item Value Reference Range Comments POC-GLUCOSE METER (BEAKER) 213 mg/dL 70-110 TESTED AT [address] (test ayei=2614) [facility] [address] POCT-GLUCOSE [id number] 18:07:00 Test Item Value Reference Range Comments POC-GLUCOSE METER (BEAKER) 212 mg/dL 70-110 TESTED AT [address] (test woun=3516) [facility] [address] ALPHA FETOPROTEIN (AFP), TUMOR [id number] 17:50:00 Test Item Value Reference Range Comments ALPHA-FETOPROTEIN (BEAKER) (test wart=3884) < ng/mL <10.0 HEPATITIS C [id number] 17:49:00 Test Item Value Reference Range Comments HEPATITIS C ANTIBODY (BEAKER) (test aywr=598) Nonreactive Nonreactive VITAMIN D, [id number] 15:10:00 Test Item Value Reference Range Comments VITAMIN D 25-OH (BEAKER) (test mmew=4046) < ng/mL 6.6-49.9 Effective 08/14/2017: Reference Range ChangeNew: 6.6-49.9 ng/mL Previous: 13.0 -47.8 ng/mLRecommended Vitamin D Target Range: 30.0-40.0 ng/mLHEPATITIS B SURFACE [id number] 15:10:00 Test Item Value Reference Range Comments HEPATITIS B SURFACE ANTIBODY (BEAKER) (test < mIU/mL <8.0 uead=248) CARCINOEMBRYONIC ANTIGEN (CEA)2019-05-22 15:10:00 Test Item Value Reference Range Comments CARCINOEMBRYONIC ANTIGEN (BEAKER) (test mgta=964) < ng/mL 0.0-5.0 HEPATITIS B CORE ANTIBODY, [id number] 15:08:00 Test Item Value Reference Range Comments HEPATITIS B CORE IGM ANTIBODY (BEAKER) (test Nonreactive Nonreactive zqst=551) HEPATITIS A ANTIBODY, [id number] 15:08:00 Test Item Value Reference Range Comments HEPATITIS A IGM ANTIBODY (BEAKER) (test Nonreactive Nonreactive ukxq=024) HEPATITIS A ANTIBODY, [id number] 15:08:00 Test Item Value Reference Range Comments HEPATITIS A IGG ANTIBODY (BEAKER) (test Nonreactive Nonreactive gydu=6447) HEPATITIS B SURFACE [id number] 15:05:00 Test Item Value Reference Range Comments HEPATITIS B SURFACE ANTIGEN (2) (BEAKER) (test Nonreactive Nonreactive shsw=0216) HEPATITIS B CORE ANTIBODY, [id number] 15:05:00 Test Item Value Reference Range Comments HEPATITIS B CORE TOTAL ANTIBODY (BEAKER) (test Nonreactive Nonreactive ygba=467) HIV-1 ANTIGEN WITH HIV-1/2 [id number] 15:05:00 Test Item Value Reference Range Comments HIV-1 ANTIGEN WITH HIV 1\\T\\2 ANTIBODY (2) Nonreactive Nonreactive (BEAKER) (test mwuw=4985) URIC [id number] 14:46:00 Test Item Value Reference Range Comments URIC ACID (BEAKER) (test sqtf=554) 5.7 mg/dL 2.6-7.2 LIPID [id number] 14:46:00 Test Item Value Reference Range Comments TRIGLYCERIDES (BEAKER) (test ugdd=614) 71 mg/dL CHOLESTEROL (BEAKER) (test tboq=614) 72 mg/dL HDL CHOLESTEROL (BEAKER) (test slop=058) 20 mg/dL LDL CHOLESTEROL CALCULATED (BEAKER) (test obck=193) 38 mg/dL Triglyceride Reference Range: Low Risk <150 Borderline 150- 199 High Risk 200-499 Very High Risk >=500Cholesterol Reference Range: Low Risk <200 Borderline 200-239 High Risk > 240HDL Cholesterol Reference Range: Low Risk >=60 High Risk <40LDL Cholesterol Reference Range: Optimal <100 Near Optimal 100-129 Borderline 130-159 High 160-189 Very High >=190BILIRUBIN, [id number] 14:46:00 Test Item Value Reference Range Comments BILIRUBIN DIRECT (BEAKER) (test joxx=412) 0.8 mg/dL 0.1-0.5 GAMMA GLUTAMYL TRANSFERASE (GGT)2019-05-22 14:46:00 Test Item Value Reference Range Comments GAMMA GLUTAMYL TRANSFERASE (BEAKER) (test gxtm=508) 10 U/L 9-64 [id number] 14:45:00 Test Item Value Reference Range Comments ETHANOL (BEAKER) (test fsfe=208) < mg/dL <=10 [id number] 14:44:00 Test Item Value Reference Range Comments TRANSFERRIN (BEAKER) (test bnxi=807) 109 mg/dL 174-382 IRON, TIBC, % SAT. (WITHOUT FERRITIN)2019-05-22 14:44:00 Test Item Value Reference Range Comments IRON (BEAKER) (test rvqk=050) 40.0 ug/dL 40.0-160.0 TOTAL IRON BINDING CAPACITY (BEAKER) (test 136 ug/dL 250-450 jjnc=606) IRON % SATURATION (2) (BEAKER) (test rmjy=6896) 29 % 20-55 [id number] 14:34:00 Test Item Value Reference Range Comments PARTIAL THROMBOPLASTIN TIME (DAKOTAH) (test 35.7 seconds 22.5-36.0 fdzz=514) [id number] 14:33:00 Test Item Value Reference Range Comments FIBRINOGEN LEVEL (DAKOTAH) (test wtox=459) 282 mg/dl 225-434 U/S, ABDOMINAL, WITH [id number] 14:09:00Reason for exam:->TIPS evaluationFINAL REPORT Ultrasound of [...] MDReport Verified Date/Time: 05/22/2019 14:09:52 Reading Location: [address] Radiology Reading Room Electronically signed by: MISSY MOMIN M.D. on 2018 02:09 PMPOCT-GLUCOSE [id number] 12:31:00 Test Item Value Reference Range Comments POC-GLUCOSE METER (BEAKER) 252 mg/dL 70-[address] [facility] [address] [facility] (test ulka=6532) [facility] [address] COMPREHENSIVE METABOLIC [id number] 08:22:00 Test Item Value Reference Range Comments TOTAL PROTEIN (BEAKER) 4.8 gm/dL 6.0-8.3 (test bmec=593) ALBUMIN (BEAKER) (test 3.0 g/dL 3.5-5.0 gdtu=9373) ALKALINE PHOSPHATASE 77 U/L 40-150 (BEAKER) (test sjno=443) BILIRUBIN TOTAL (BEAKER) 1.6 mg/dL 0.2-1.2 (test plnz=532) SODIUM (BEAKER) (test 141 meq/L 136-145 jzvj=156) POTASSIUM (BEAKER) (test 3.1 meq/L 3.5-5.1 ahms=229) CHLORIDE (BEAKER) (test 105 meq/L 98-107 grus=096) CO2 (BEAKER) (test 31 meq/L 22-29 pbro=621) BLOOD UREA NITROGEN 18 mg/dL 7-21 (BEAKER) (test bcdd=362) CREATININE (BEAKER) (test 1.50 mg/dL 0.57-1.25 pbfy=638) GLUCOSE RANDOM (BEAKER) 145 mg/dL 70-105 (test xkyd=510) CALCIUM (BEAKER) (test 7.9 mg/dL 8.4-10.2 fowp=654) AST (SGOT) (BEAKER) (test 23 U/L 5-34 piuz=622) ALT (SGPT) (BEAKER) (test 7 U/L 6-55 lunp=827) EGFR (BEAKER) (test 35 mL/min/1.73 sq m ESTIMATED GFR IS NOT gmve=9032) ACCURATE CREATININE CLEARANCE IN PREDICTING GLOMERULAR FILTRATION RATE. ESTIMATED GFR IS NOT APPLICABLE FOR DIALYSIS PATIENTS. [id number] 08:19:00 Test Item Value Reference Range Comments PHOSPHORUS (BEAKER) (test dcxp=328) 2.2 mg/dL 2.3-4.7 [id number] 08:19:00 Test Item Value Reference Range Comments MAGNESIUM (BEAKER) (test iumw=395) 1.5 mg/dL 1.6-2.6 HEPATIC FUNCTION [id number] 08:19:00 Test Item Value Reference Range Comments TOTAL PROTEIN (BEAKER) (test ucim=711) 4.8 gm/dL 6.0-8.3 ALBUMIN (BEAKER) (test lnqc=6065) 3.0 g/dL 3.5-5.0 BILIRUBIN TOTAL (BEAKER) (test bfzt=943) 1.6 mg/dL 0.2-1.2 BILIRUBIN DIRECT (BEAKER) (test caxc=095) 0.7 mg/dL 0.1-0.5 ALKALINE PHOSPHATASE (BEAKER) (test vjds=495) 77 U/L 40-150 AST (SGOT) (BEAKER) (test vwjm=963) 23 U/L 5-34 ALT (SGPT) (BEAKER) (test kraj=494) 7 U/L 6-55 POCT-GLUCOSE [id number] 08:08:00 Test Item Value Reference Range Comments POC-GLUCOSE METER (BEAKER) 154 mg/dL 70-[address] [facility] [address] [place] [address] (test ruqo=5326) [facility] [address] B-TYPE NATRIURETIC FACTOR (BNP)2019-05-22 06:18:00 Test Item Value Reference Range Comments B-TYPE NATRIURETIC PEPTIDE (BEAKER) (test 411 pg/mL 0-100 cwyx=842) PROTHROMBIN [id number] 06:00:00 Test Item Value Reference Range Comments PROTIME (BEAKER) (test ocou=928) 14.9 seconds 11.9-14.2 INR (BEAKER) (test grdk=919) 1.2 <=5.9 Effective 04/01/2019: PT Reference Range ChangeNew: 11.9-14.2 Previous: 11.7- 14.7RECOMMENDED COUMADIN/WARFARIN INR THERAPY RANGESSTANDARD DOSE: 2.0-3.0 Includes: PROPHYLAXIS for venous thrombosis, systemic embolization; TREATMENT for venous thrombosis and/or pulmonary embolus.HIGH RISK: Target INR is2.5-3.5 for patients wiht mechanical heart valves.CALCIUM, [id number] 05:48:00 Test Item Value Reference Range Comments CALCIUM IONIZED (BEAKER) (test ndeh=245) 1.04 mmol/L 1.12-1.27 PH, BLOOD (BEAKER) (test lxwk=0968) 7.40 CBC W/PLT COUNT & AUTO [id number] 05:45:00 Test Item Value Reference Range Comments WHITE BLOOD CELL COUNT (BEAKER) (test qoeo=506) 4.1 K/ L 3.5-10.5 RED BLOOD CELL COUNT (BEAKER) (test itvq=676) 2.71 M/ L 3.93-5.22 HEMOGLOBIN (BEAKER) (test thbl=371) 7.4 GM/DL 11.2-15.7 HEMATOCRIT (BEAKER) (test eclg=274) 23.6 % 34.1-44.9 MEAN CORPUSCULAR VOLUME (BEAKER) (test kqjs=553) 87.1 fL 79.4-94.8 MEAN CORPUSCULAR HEMOGLOBIN (BEAKER) (test 27.3 pg 25.6-32.2 imld=241) MEAN CORPUSCULAR HEMOGLOBIN CONC (BEAKER) (test 31.4 GM/DL 32.2-35.5 bswk=913) RED CELL DISTRIBUTION WIDTH (BEAKER) (test 17.2 % 11.7-14.4 qnyg=482) PLATELET COUNT (BEAKER) (test davd=748) 126 K/CU MM 150-450 MEAN PLATELET VOLUME (BEAKER) (test uitn=568) 9.2 fL 9.4-12.3 NUCLEATED RED BLOOD CELLS (BEAKER) (test 0 /100 WBC 0-0 mvhc=536) NEUTROPHILS RELATIVE PERCENT (BEAKER) (test 49 % vezj=449) LYMPHOCYTES RELATIVE PERCENT (BEAKER) (test 29 % vqjj=714) MONOCYTES RELATIVE PERCENT (BEAKER) (test 12 % vwng=838) EOSINOPHILS RELATIVE PERCENT (BEAKER) (test 8 % slva=477) BASOPHILS RELATIVE PERCENT (BEAKER) (test 1 % tznq=750) NEUTROPHILS ABSOLUTE COUNT (BEAKER) (test 2.03 K/ L 1.56-6.13 wqfu=360) LYMPHOCYTES ABSOLUTE COUNT (BEAKER) (test 1.21 K/ L 1.18-3.74 murj=927) MONOCYTES ABSOLUTE COUNT (BEAKER) (test 0.51 K/ L 0.24-0.36 pmcv=631) EOSINOPHILS ABSOLUTE COUNT (BEAKER) (test 0.34 K/ L 0.04-0.36 kibl=281) BASOPHILS ABSOLUTE COUNT (BEAKER) (test 0.04 K/ L 0.01-0.08 rlge=431) IMMATURE GRANULOCYTES-RELATIVE PERCENT (BEAKER) 0 % 0-1 (test rchc=3637) POCT-GLUCOSE [id number] 21:52:00 Test Item Value Reference Range Comments POC-GLUCOSE METER (BEAKER) 241 mg/dL 70-110 TESTED AT [address] (test lnad=5358) [place] [address] POCT-GLUCOSE [id number] 17:36:00 Test Item Value Reference Range Comments POC-GLUCOSE METER (BEAKER) 291 mg/dL 70-110 TESTED AT [address] (test gjrj=1744) [place] [id number] BODY FLUID CELL COUNT WITH [id number] 13:52:00 Test Item Value Reference Range Comments APPEARANCE FLUID (BEAKER) (test youp=896) Clear Clear COLOR FLUID (BEAKER) (test anpx=569) Yellow Colorless, Straw RBC FLUID (BEAKER) (test slvk=020) 1815 /cu mm <=1 ADJUSTED WBC FLUID (BEAKER) (test ftse=8320) 79 /cu mm <=5 LINING CELLS (BEAKER) (test lvfv=5424) 14 /cu mm <=1 NEUTROPHILS FLUID (BEAKER) (test mhti=1118) 0 % LYMPHS FLUID (BEAKER) (test avzn=752) 25 % MONO/MACROPHAGE FLUID (BEAKER) (test xpni=150) 74 % EOSINOPHILS FLUID (BEAKER) (test xrzw=505) 1 % BASO FLUID (BEAKER) (test anpu=103) 0 % CONTAINER BODY FLUID (BEAKER) (test yntr=2748) EDTA Tube HEMOGLOBIN [id number] 13:47:00 Test Item Value Reference Range Comments HEMOGLOBIN A1C (BEAKER) (test dqrg=932) 8.4 % 4.3-6.1 POCT-GLUCOSE [id number] 11:56:00 Test Item Value Reference Range Comments POC-GLUCOSE METER (BEAKER) 223 mg/dL 70-[address] [facility] [address] [facility] (test etue=6982) [facility] [address] POCT-GLUCOSE [id number] 08:31:00 Test Item Value Reference Range Comments POC-GLUCOSE METER (BEAKER) 257 mg/dL 70-[address] [facility] [address] [facility] (test ypqb=5772) [facility] [address] T4, [id number] 08:29:00 Test Item Value Reference Range Comments FREE T4 (BEAKER) (test rpga=859) 0.41 ng/dL 0.70-1.48 BASIC METABOLIC [id number] 08:28:00 Test Item Value Reference Range Comments SODIUM (BEAKER) (test 136 meq/L 136-145 yiwa=808) POTASSIUM (BEAKER) (test 3.4 meq/L 3.5-5.1 zzqo=832) CHLORIDE (BEAKER) (test 104 meq/L 98-107 nuqk=359) CO2 (BEAKER) (test 27 meq/L 22-29 jsta=540) BLOOD UREA NITROGEN 18 mg/dL 7-21 (BEAKER) (test jcrj=072) CREATININE (BEAKER) (test 1.57 mg/dL 0.57-1.25 fxcd=456) GLUCOSE RANDOM (BEAKER) 235 mg/dL 70-105 (test joch=931) CALCIUM (BEAKER) (test 7.8 mg/dL 8.4-10.2 wlah=418) EGFR (BEAKER) (test 33 mL/min/1.73 sq m ESTIMATED GFR IS NOT ycam=8670) ACCURATE CREATININE CLEARANCE IN PREDICTING GLOMERULAR FILTRATION RATE. ESTIMATED GFR IS NOT APPLICABLE FOR DIALYSIS PATIENTS. Specimen slightly [id number] 08:14:00 Test Item Value Reference Range Comments PHOSPHORUS (BEAKER) (test ofdh=636) 2.4 mg/dL 2.3-4.7 [id number] 08:14:00 Test Item Value Reference Range Comments MAGNESIUM (BEAKER) (test ojyy=598) 1.5 mg/dL 1.6-2.6 HEPATIC FUNCTION [id number] 08:14:00 Test Item Value Reference Range Comments TOTAL PROTEIN (BEAKER) (test limr=493) 5.1 gm/dL 6.0-8.3 ALBUMIN (BEAKER) (test lmkv=7758) 2.5 g/dL 3.5-5.0 BILIRUBIN TOTAL (BEAKER) (test dewf=909) 1.3 mg/dL 0.2-1.2 BILIRUBIN DIRECT (BEAKER) (test tydz=630) 0.7 mg/dL 0.1-0.5 ALKALINE PHOSPHATASE (BEAKER) (test cbur=884) 107 U/L 40-150 AST (SGOT) (BEAKER) (test oeus=666) 27 U/L 5-34 ALT (SGPT) (BEAKER) (test jvnl=948) 11 U/L 6-55 Specimen slightly ictericTSH/FREE T4 IF [id number] 07:00:00 Test Item Value Reference Range Comments THYROID STIMULATING HORMONE (BEAKER) (test 59.61 uIU/mL 0.35-4.94 fqrt=175) PROTHROMBIN [id number] 05:56:00 Test Item Value Reference Range Comments PROTIME (BEAKER) (test wowk=744) 14.3 seconds 11.9-14.2 INR (BEAKER) (test icjn=642) 1.2 <=5.9 Effective 04/01/2019: PT Reference Range ChangeNew: 11.9-14.2 Previous: 11.7- 14.7RECOMMENDED COUMADIN/WARFARIN INR THERAPY RANGESSTANDARD DOSE: 2.0-3.0 Includes: PROPHYLAXIS for venous thrombosis, systemic embolization; TREATMENT for venous thrombosis and/or pulmonary embolus.HIGH RISK: Target INR is2.5-3.5 for patients wiht mechanical heart valves.CALCIUM, [id number] 05:43:00 Test Item Value Reference Range Comments CALCIUM IONIZED (BEAKER) (test dqut=002) 0.97 mmol/L 1.12-1.27 PH, BLOOD (BEAKER) (test zpqw=8847) 7.45 CBC W/PLT COUNT & AUTO [id number] 05:21:00 Test Item Value Reference Range Comments WHITE BLOOD CELL COUNT (BEAKER) (test abhi=987) 5.5 K/ L 3.5-10.5 RED BLOOD CELL COUNT (BEAKER) (test qodq=302) 3.06 M/ L 3.93-5.22 HEMOGLOBIN (BEAKER) (test bbtm=863) 8.3 GM/DL 11.2-15.7 HEMATOCRIT (BEAKER) (test ypzd=111) 26.3 % 34.1-44.9 MEAN CORPUSCULAR VOLUME (BEAKER) (test mtmc=317) 85.9 fL 79.4-94.8 MEAN CORPUSCULAR HEMOGLOBIN (BEAKER) (test 27.1 pg 25.6-32.2 mcnw=433) MEAN CORPUSCULAR HEMOGLOBIN CONC (BEAKER) (test 31.6 GM/DL 32.2-35.5 ojvf=070) RED CELL DISTRIBUTION WIDTH (BEAKER) (test 17.2 % 11.7-14.4 jyjr=654) PLATELET COUNT (BEAKER) (test ixob=838) 154 K/CU MM 150-450 MEAN PLATELET VOLUME (BEAKER) (test zsua=913) 8.9 fL 9.4-12.3 NUCLEATED RED BLOOD CELLS (BEAKER) (test 0 /100 WBC 0-0 seqr=655) NEUTROPHILS RELATIVE PERCENT (BEAKER) (test 61 % tkjy=198) LYMPHOCYTES RELATIVE PERCENT (BEAKER) (test 21 % krqo=531) MONOCYTES RELATIVE PERCENT (BEAKER) (test 10 % nbtp=661) EOSINOPHILS RELATIVE PERCENT (BEAKER) (test 8 % tktq=359) BASOPHILS RELATIVE PERCENT (BEAKER) (test 1 % vrjw=378) NEUTROPHILS ABSOLUTE COUNT (BEAKER) (test 3.33 K/ L 1.56-6.13 ooeu=062) LYMPHOCYTES ABSOLUTE COUNT (BEAKER) (test 1.13 K/ L 1.18-3.74 znty=846) MONOCYTES ABSOLUTE COUNT (BEAKER) (test 0.55 K/ L 0.24-0.36 xxir=591) EOSINOPHILS ABSOLUTE COUNT (BEAKER) (test 0.42 K/ L 0.04-0.36 ljku=178) BASOPHILS ABSOLUTE COUNT (BEAKER) (test 0.06 K/ L 0.01-0.08 zdlb=249) IMMATURE GRANULOCYTES-RELATIVE PERCENT (BEAKER) 0 % 0-1 (test lwid=1713) POCT-GLUCOSE [id number] 21:18:00 Test Item Value Reference Range Comments POC-GLUCOSE METER (BEAKER) 258 mg/dL 70-110 TESTED AT [address] (test bswc=5542) [facility] [address] POCT-GLUCOSE [id number] 17:42:00 Test Item Value Reference Range Comments POC-GLUCOSE METER (BEAKER) 232 mg/dL 70-110 TESTED AT [address] (test esml=8245) [facility] [address] POCT-GLUCOSE [id number] 12:51:00 Test Item Value Reference Range Comments POC-GLUCOSE METER (BEAKER) 206 mg/dL 70-110 TESTED AT [address] (test szmm=1446) [facility] [address] POCT-GLUCOSE [id number] 07:53:00 Test Item Value Reference Range Comments POC-GLUCOSE METER (BEAKER) 219 mg/dL 70-110 TESTED AT [address] (test akhg=3278) [facility] [address] COMPREHENSIVE METABOLIC [id number] 06:52:00 Test Item Value Reference Range Comments TOTAL PROTEIN (BEAKER) 4.9 gm/dL 6.0-8.3 (test bbpc=946) ALBUMIN (BEAKER) (test 2.3 g/dL 3.5-5.0 fkqv=1523) ALKALINE PHOSPHATASE 119 U/L 40-150 (BEAKER) (test dvio=936) BILIRUBIN TOTAL (BEAKER) 1.1 mg/dL 0.2-1.2 (test jvzo=603) SODIUM (BEAKER) (test 135 meq/L 136-145 wuro=862) POTASSIUM (BEAKER) (test 4.0 meq/L 3.5-5.1 dojr=949) CHLORIDE (BEAKER) (test 105 meq/L 98-107 ncat=775) CO2 (BEAKER) (test 26 meq/L 22-29 gudh=676) BLOOD UREA NITROGEN 18 mg/dL 7-21 (BEAKER) (test gncv=339) CREATININE (BEAKER) (test 1.38 mg/dL 0.57-1.25 ncmn=873) GLUCOSE RANDOM (BEAKER) 234 mg/dL 70-105 (test zneg=038) CALCIUM (BEAKER) (test 7.8 mg/dL 8.4-10.2 agch=268) AST (SGOT) (BEAKER) (test 29 U/L 5-34 zmoa=940) ALT (SGPT) (BEAKER) (test 13 U/L 6-55 flra=992) EGFR (BEAKER) (test 39 mL/min/1.73 sq m ESTIMATED GFR IS NOT filp=7729) ACCURATE CREATININE CLEARANCE IN PREDICTING GLOMERULAR FILTRATION RATE. ESTIMATED GFR IS NOT APPLICABLE FOR DIALYSIS PATIENTS. [id number] 06:47:00 Test Item Value Reference Range Comments PHOSPHORUS (BEAKER) (test kqjg=339) 2.0 mg/dL 2.3-4.7 [id number] 06:47:00 Test Item Value Reference Range Comments MAGNESIUM (BEAKER) (test jwxp=747) 1.7 mg/dL 1.6-2.6 HEPATIC FUNCTION [id number] 06:47:00 Test Item Value Reference Range Comments TOTAL PROTEIN (BEAKER) (test ygdz=417) 4.9 gm/dL 6.0-8.3 ALBUMIN (BEAKER) (test ogtd=3404) 2.3 g/dL 3.5-5.0 BILIRUBIN TOTAL (BEAKER) (test hgyh=327) 1.1 mg/dL 0.2-1.2 BILIRUBIN DIRECT (BEAKER) (test naqj=033) 0.6 mg/dL 0.1-0.5 ALKALINE PHOSPHATASE (BEAKER) (test ydep=802) 119 U/L 40-150 AST (SGOT) (BEAKER) (test egia=448) 29 U/L 5-34 ALT (SGPT) (BEAKER) (test iajf=598) 13 U/L 6-55 CBC W/PLT COUNT & AUTO [id number] 06:32:00 Test Item Value Reference Range Comments WHITE BLOOD CELL COUNT (BEAKER) (test vljw=379) 5.3 K/ L 3.5-10.5 RED BLOOD CELL COUNT (BEAKER) (test qkys=611) 3.05 M/ L 3.93-5.22 HEMOGLOBIN (BEAKER) (test cqcu=329) 8.3 GM/DL 11.2-15.7 HEMATOCRIT (BEAKER) (test otza=180) 26.7 % 34.1-44.9 MEAN CORPUSCULAR VOLUME (BEAKER) (test qhal=796) 87.5 fL 79.4-94.8 MEAN CORPUSCULAR HEMOGLOBIN (BEAKER) (test 27.2 pg 25.6-32.2 ulgl=390) MEAN CORPUSCULAR HEMOGLOBIN CONC (BEAKER) (test 31.1 GM/DL 32.2-35.5 htye=948) RED CELL DISTRIBUTION WIDTH (BEAKER) (test 17.4 % 11.7-14.4 ffze=747) PLATELET COUNT (BEAKER) (test ejmp=685) 161 K/CU MM 150-450 MEAN PLATELET VOLUME (BEAKER) (test lfdp=429) 8.8 fL 9.4-12.3 NUCLEATED RED BLOOD CELLS (BEAKER) (test 0 /100 WBC 0-0 qeyb=843) NEUTROPHILS RELATIVE PERCENT (BEAKER) (test 52 % tmyh=606) LYMPHOCYTES RELATIVE PERCENT (BEAKER) (test 27 % svif=700) MONOCYTES RELATIVE PERCENT (BEAKER) (test 9 % hglq=802) EOSINOPHILS RELATIVE PERCENT (BEAKER) (test 10 % dufj=275) BASOPHILS RELATIVE PERCENT (BEAKER) (test 2 % grxg=974) NEUTROPHILS ABSOLUTE COUNT (BEAKER) (test 2.75 K/ L 1.56-6.13 jcqo=759) LYMPHOCYTES ABSOLUTE COUNT (BEAKER) (test 1.42 K/ L 1.18-3.74 hubb=867) MONOCYTES ABSOLUTE COUNT (BEAKER) (test 0.48 K/ L 0.24-0.36 jlrg=879) EOSINOPHILS ABSOLUTE COUNT (BEAKER) (test 0.54 K/ L 0.04-0.36 nntx=909) BASOPHILS ABSOLUTE COUNT (BEAKER) (test 0.08 K/ L 0.01-0.08 rfaq=573) IMMATURE GRANULOCYTES-RELATIVE PERCENT (BEAKER) 0 % 0-1 (test hnpo=2359) B-TYPE NATRIURETIC FACTOR (BNP)2019-05-20 06:27:00 Test Item Value Reference Range Comments B-TYPE NATRIURETIC PEPTIDE (BEAKER) (test 274 pg/mL 0-100 inae=086) VANCOMYCIN LEVEL, [id number] 06:16:00 Test Item Value Reference Range Comments VANCOMYCIN TROUGH (BEAKER) (test vfvl=420) 5.8 ug/mL 10.0-20.0 [id number] 06:11:00 Test Item Value Reference Range Comments D-DIMER QUANTITATIVE (BEAKER) (test qmft=355) 3.95 MG/L FEU <0.50 Intended Use: The [...] exclusion of thrombosis is within 95-100% range.CALCIUM, [id number] 06:04:00 Test Item Value Reference Range Comments CALCIUM IONIZED (BEAKER) (test wwoz=094) 1.06 mmol/L 1.12-1.27 PH, BLOOD (BEAKER) (test iurt=4513) 7.43 PROTHROMBIN [id number] 06:02:00 Test Item Value Reference Range Comments PROTIME (BEAKER) (test lmjj=083) 13.8 seconds 11.9-14.2 INR (BEAKER) (test zsud=684) 1.1 <=5.9 Effective 04/01/2019: PT Reference Range ChangeNew: 11.9-14.2 Previous: 11.7- 14.7RECOMMENDED COUMADIN/WARFARIN INR THERAPY RANGESSTANDARD DOSE: 2.0-3.0 Includes: PROPHYLAXIS for venous thrombosis, systemic embolization; TREATMENT for venous thrombosis and/or pulmonary embolus.HIGH RISK: Target INR is2.5-3.5 for patients wiht mechanical heart valves.TROPONIN [id number] 02:44:00 Test Item Value Reference Range Comments TROPONIN I (BEAKER) (test dxgh=069) 0.01 ng/mL 0.00-0.03 Troponin I (TnI) levels [...] acute neurological disease, and persistent tachyarrhythmia.PROTEIN, RANDOM [id number] 01:50:00 Test Item Value Reference Range Comments PROTEIN, URINE (BEAKER) (test dikm=3700) 20 mg/dL 0-14 CREATININE, RANDOM [id number] 01:49:00 Test Item Value Reference Range Comments CREATININE URINE (BEAKER) (test urwi=427) 184.6 mg/dL Reference Range: No NormalsRAD, CHEST, 1 VIEW, NON [id number] 01:49: 00Reason for exam:->anasarcaShould this be performed [...] Verified Date/Time: 05/20/2019 01:49 :05 Reading Location: [address] Reading Room POCT-GLUCOSE [id number] 00:36:00 Test Item Value Reference Range Comments POC-GLUCOSE METER (BEAKER) 326 mg/dL 70-[address] [facility] [address] [place] [address] (test vwys=7135) [facility] [address] URINALYSIS W/ [id number] 00:02:00 Test Item Value Reference Range Comments COLOR (BEAKER) (test qfni=072) Yellow CLARITY (BEAKER) (test tsxq=565) Clear SPECIFIC GRAVITY UA (BEAKER) (test hdcx=747) 1.020 1.001-1.035 PH UA (BEAKER) (test qhqq=483) 5.5 5.0-8.0 PROTEIN UA (BEAKER) (test euvv=821) 20 mg/dL Negative GLUCOSE UA (BEAKER) (test xuoh=038) 300 mg/dL Negative KETONES UA (BEAKER) (test naek=074) Negative Negative BILIRUBIN UA (BEAKER) (test btoh=117) Negative Negative BLOOD UA (BEAKER) (test nkzs=003) Negative Negative NITRITE UA (BEAKER) (test yzme=481) Negative Negative LEUKOCYTE ESTERASE UA (BEAKER) (test zwvz=124) Small Negative UROBILINOGEN UA (BEAKER) (test qpmk=916) 2.0 mg/dL 0.2-1.0 RBC UA (BEAKER) (test pajj=313) 2 /HPF WBC UA (BEAKER) (test lakh=404) 2 /HPF MUCUS (BEAKER) (test yprg=5762) Rare SQUAMOUS EPITHELIAL (BEAKER) (test gbkz=106) 6 /HPF HYALINE CASTS (BEAKER) (test pdlz=110) 5 /LPF SOURCE(BEAKER) (test aspi=9915) Urine, Voided T4, [id number] 22:29:00 Test Item Value Reference Range Comments FREE T4 (BEAKER) (test uxxh=857) 0.44 ng/dL 0.70-1.48 HEMOGLOBIN [id number] 22:15:00 Test Item Value Reference Range Comments HEMOGLOBIN A1C (BEAKER) (test yqqg=874) 8.6 % 4.3-6.1 TSH/FREE T4 IF [id number] 21:43:00 Test Item Value Reference Range Comments THYROID STIMULATING HORMONE (BEAKER) (test 72.01 uIU/mL 0.35-4.94 nnax=352) B-TYPE NATRIURETIC FACTOR (BNP)2019-05-19 21:29:00 Test Item Value Reference Range Comments B-TYPE NATRIURETIC PEPTIDE (BEAKER) (test 222 pg/mL 0-100 ulnn=946) PROTHROMBIN [id number] 21:26:00 Test Item Value Reference Range Comments PROTIME (BEAKER) (test hrlg=528) 13.6 seconds 11.9-14.2 INR (BEAKER) (test iaar=522) 1.1 <=5.9 Effective 04/01/2019: PT Reference Range ChangeNew: 11.9-14.2 Previous: 11.7- 14.7RECOMMENDED COUMADIN/WARFARIN INR THERAPY RANGESSTANDARD DOSE: 2.0-3.0 Includes: PROPHYLAXIS for venous thrombosis, systemic embolization; TREATMENT for venous thrombosis and/or pulmonary embolus.HIGH RISK: Target INR is2.5-3.5 for patients wiht mechanical heart valves.TROPONIN [id number] 21:26:00 Test Item Value Reference Range Comments TROPONIN I (BEAKER) (test kzww=375) < ng/mL 0.00-0.03 Troponin I (TnI) levels [...] failure, acidosis, acute neurological disease, and persistent tachyarrhythmia.[id number] 21:18:00 Test Item Value Reference Range Comments MAGNESIUM (BEAKER) (test 1.8 mg/dL 1.6-2.6 Specimen markedly hemolyzed ponf=618) [id number] 21:18:00 Test Item Value Reference Range Comments PHOSPHORUS (BEAKER) (test 2.1 mg/dL 2.3-4.7 Specimen markedly hemolyzed cnmz=798) BASIC METABOLIC [id number] 21:18:00 Test Item Value Reference Range Comments SODIUM (BEAKER) (test 136 meq/L 136-145 qmpk=382) POTASSIUM (BEAKER) (test 4.8 meq/L 3.5-5.1 Specimen markedly ynsj=633) hemolyzed CHLORIDE (BEAKER) (test 103 meq/L 98-107 uqnt=894) CO2 (BEAKER) (test 29 meq/L 22-29 qoem=757) BLOOD UREA NITROGEN 17 mg/dL 7-21 (BEAKER) (test wrls=266) CREATININE (BEAKER) (test 1.33 mg/dL 0.57-1.25 Specimen markedly hzmn=561) hemolyzed GLUCOSE RANDOM (BEAKER) 248 mg/dL 70-105 (test wklu=442) CALCIUM (BEAKER) (test 8.1 mg/dL 8.4-10.2 shrd=913) EGFR (BEAKER) (test 41 mL/min/1.73 sq m ESTIMATED GFR IS NOT jxkg=8107) ACCURATE CREATININE CLEARANCE IN PREDICTING GLOMERULAR FILTRATION RATE. ESTIMATED GFR IS NOT APPLICABLE FOR DIALYSIS PATIENTS. HEPATIC FUNCTION [id number] 21:18:00 Test Item Value Reference Range Comments TOTAL PROTEIN (BEAKER) (test 6.4 gm/dL 6.0-8.3 Specimen markedly hemolyzed yzmw=816) ALBUMIN (BEAKER) (test 2.5 g/dL 3.5-5.0 Specimen markedly hemolyzed uguw=0180) BILIRUBIN TOTAL (BEAKER) (test 1.3 mg/dL 0.2-1.2 Specimen markedly hemolyzed xazu=993) BILIRUBIN DIRECT (BEAKER) (test 0.3 mg/dL 0.1-0.5 Specimen markedly hemolyzed mveq=887) ALKALINE PHOSPHATASE (BEAKER) 143 U/L 40-150 (test kcff=804) AST (SGOT) (BEAKER) (test 61 U/L 5-34 Specimen markedly hemolyzed besn=638) ALT (SGPT) (BEAKER) (test 15 U/L 6-55 Specimen markedly hemolyzed yuay=496) CBC W/PLT COUNT & AUTO [id number] 20:58:00 Test Item Value Reference Range Comments WHITE BLOOD CELL COUNT (BEAKER) (test tmsm=010) 6.0 K/ L 3.5-10.5 RED BLOOD CELL COUNT (BEAKER) (test wkrg=934) 3.57 M/ L 3.93-5.22 HEMOGLOBIN (BEAKER) (test gfcr=039) 9.8 GM/DL 11.2-15.7 HEMATOCRIT (BEAKER) (test lfuw=005) 30.6 % 34.1-44.9 MEAN CORPUSCULAR VOLUME (BEAKER) (test pkcn=409) 85.7 fL 79.4-94.8 MEAN CORPUSCULAR HEMOGLOBIN (BEAKER) (test 27.5 pg 25.6-32.2 hoky=686) MEAN CORPUSCULAR HEMOGLOBIN CONC (BEAKER) (test 32.0 GM/DL 32.2-35.5 wdms=013) RED CELL DISTRIBUTION WIDTH (BEAKER) (test 17.4 % 11.7-14.4 kmas=439) PLATELET COUNT (BEAKER) (test iaph=466) 199 K/CU MM 150-450 MEAN PLATELET VOLUME (BEAKER) (test wcef=976) 9.1 fL 9.4-12.3 NUCLEATED RED BLOOD CELLS (BEAKER) (test 0 /100 WBC 0-0 iriq=805) NEUTROPHILS RELATIVE PERCENT (BEAKER) (test 53 % xwyg=034) LYMPHOCYTES RELATIVE PERCENT (BEAKER) (test 27 % mipx=686) MONOCYTES RELATIVE PERCENT (BEAKER) (test 8 % qphc=517) EOSINOPHILS RELATIVE PERCENT (BEAKER) (test 10 % xqdd=205) BASOPHILS RELATIVE PERCENT (BEAKER) (test 1 % yqub=107) NEUTROPHILS ABSOLUTE COUNT (BEAKER) (test 3.21 K/ L 1.56-6.13 puem=992) LYMPHOCYTES ABSOLUTE COUNT (BEAKER) (test 1.62 K/ L 1.18-3.74 psaj=875) MONOCYTES ABSOLUTE COUNT (BEAKER) (test 0.50 K/ L 0.24-0.36 miyt=859) EOSINOPHILS ABSOLUTE COUNT (BEAKER) (test 0.62 K/ L 0.04-0.36 dbqk=578) BASOPHILS ABSOLUTE COUNT (BEAKER) (test 0.08 K/ L 0.01-0.08 hhkz=078) IMMATURE GRANULOCYTES-RELATIVE PERCENT (BEAKER) 0 % 0-1 (test lazx=3162) BODY FLUID CULTURE + GRAM [id number] 13:44:00 Test Item Value Reference Range Comments CULTURE (BEAKER) (test lvqs=4441) No growth GRAM STAIN RESULT (BEAKER) (test <1+ White blood cells seen vwdb=1833) GRAM STAIN RESULT (BEAKER) (test No organisms seen fyrg=65712) BODY FLUID CULTURE + GRAM [id number] 14:06:00 Test Item Value Reference Range Comments CULTURE (BEAKER) (test lswv=9892) No growth GRAM STAIN RESULT (BEAKER) (test No White blood cells seen mntg=0693) GRAM STAIN RESULT (BEAKER) (test No organisms seen deju=80260) BASIC METABOLIC [id number] 08:41:00 Test Item Value Reference Range Comments SODIUM (BEAKER) (test 132 meq/L 136-145 gchk=237) POTASSIUM (BEAKER) (test 4.4 meq/L 3.5-5.1 zyqi=942) CHLORIDE (BEAKER) (test 100 meq/L 98-107 ptqa=212) CO2 (BEAKER) (test 25 meq/L 22-29 aupv=080) BLOOD UREA NITROGEN 53 mg/dL 7-21 (BEAKER) (test slhf=470) CREATININE (BEAKER) (test 1.80 mg/dL 0.57-1.25 wvji=094) GLUCOSE RANDOM (BEAKER) 211 mg/dL 70-105 (test ogiw=306) CALCIUM (BEAKER) (test 9.0 mg/dL 8.4-10.2 gecu=944) EGFR (BEAKER) (test 29 mL/min/1.73 sq m ESTIMATED GFR IS NOT yjtd=0614) ACCURATE CREATININE CLEARANCE IN PREDICTING GLOMERULAR FILTRATION RATE. ESTIMATED GFR IS NOT APPLICABLE FOR DIALYSIS PATIENTS. POCT-GLUCOSE [id number] 08:16:00 Test Item Value Reference Range Comments POC-GLUCOSE METER (BEAKER) 213 mg/dL 70-[address] [facility] [address] [place] [address] (test nvfb=2041) [facility] [address] HEPATIC FUNCTION [id number] 06:43:00 Test Item Value Reference Range Comments TOTAL PROTEIN (BEAKER) (test ryvq=176) 5.7 gm/dL 6.0-8.3 ALBUMIN (BEAKER) (test ehih=1178) 4.2 g/dL 3.5-5.0 BILIRUBIN TOTAL (BEAKER) (test lruw=408) 1.6 mg/dL 0.2-1.2 BILIRUBIN DIRECT (BEAKER) (test vwir=736) 0.8 mg/dL 0.1-0.5 ALKALINE PHOSPHATASE (BEAKER) (test mnxv=397) 95 U/L 40-150 AST (SGOT) (BEAKER) (test gobf=692) 71 U/L 5-34 ALT (SGPT) (BEAKER) (test oyib=207) 68 U/L 6-55 POCT-GLUCOSE [id number] 22:00:00 Test Item Value Reference Range Comments POC-GLUCOSE METER (BEAKER) 341 mg/dL 70-110 Notified ALEXI ENNIS/TESTED AT [facility] (test ktdk=8798) [address] [place] [address] BODY FLUID CELL COUNT WITH [id number] 20:00:00 Test Item Value Reference Range Comments APPEARANCE FLUID (BEAKER) (test wafs=056) Hazy Clear COLOR FLUID (BEAKER) (test srvy=414) Straw Colorless, Straw RBC FLUID (BEAKER) (test xrkd=592) 4000 /cu mm <=1 ADJUSTED WBC FLUID (BEAKER) (test joea=8382) 140 /cu mm <=5 LINING CELLS (BEAKER) (test yzfn=4290) 1 /cu mm <=1 NEUTROPHILS FLUID (BEAKER) (test zejq=1223) 1 % LYMPHS FLUID (BEAKER) (test sxez=807) 30 % MONO/MACROPHAGE FLUID (BEAKER) (test iqpk=861) 69 % EOSINOPHILS FLUID (BEAKER) (test yroz=564) 0 % BASO FLUID (BEAKER) (test yfff=977) 0 % CONTAINER BODY FLUID (BEAKER) (test bjdr=1942) EDTA Tube U/S, [id number] 16:42:00Reason for exam:->ascites limited 6 litersFINAL REPORT PROCEDURE: Ultrasound-guided paracentesis. INDICATION: 59-year-old woman with ascites. DESCRIPTION: After obtaining informed written consent, ultrasound scan of the abdomen identified ascites in the right lower quadrant. The overlying skin was prepped and draped in the usual, sterile fashion and local 2% lidocaine anesthesia was administered. A 5 [place] catheter was advanced into the peritoneal cavity and 6000 cc of serous fluid was removed. The catheter was removed without immediate complication. Samples were sent for analysis. IMPRESSION:Uncomplicated ultrasound-guided paracentesis with 6000 cc fluid removed. Signed: Antwon Bose MDReport Verified Date/Time: 02/24/2019 16:42:07 Reading Location: [address] Ultrasound Reading Room POCT-GLUCOSE [id number] 13:07:00 Test Item Value Reference Range Comments POC-GLUCOSE METER (BEAKER) 290 mg/dL 70-110 TESTED AT [address] (test yuxm=0798) [facility] [address] PROTHROMBIN [id number] 12:01:00 Test Item Value Reference Range Comments PROTIME (BEAKER) (test qcfi=152) 14.3 seconds 11.7-14.7 INR (BEAKER) (test capm=405) 1.1 <=5.9 RECOMMENDED COUMADIN/WARFARIN INR THERAPY RANGESSTANDARD DOSE: 2.0 - 3.0 Includes: PROPHYLAXIS forvenous thrombosis, systemic embolization; TREATMENT for venous thrombosis and/or pulmonary embolus.HIGH RISK: Target INR is 2.5-3.5 for patients with mechanical heart valves.[id number] 12:01:00 Test Item Value Reference Range Comments PARTIAL THROMBOPLASTIN TIME (BEAKER) (test 32.5 seconds 22.5-36.0 nynh=606) POCT-GLUCOSE [id number] 08:39:00 Test Item Value Reference Range Comments POC-GLUCOSE METER (BEAKER) 279 mg/dL 70-[address] [facility] [address] [facility] (test gtxa=4783) [place] [address] CALCIUM, [id number] 07:04:00 Test Item Value Reference Range Comments CALCIUM IONIZED (BEAKER) (test stcx=082) 1.08 mmol/L 1.12-1.27 PH, BLOOD (BEAKER) (test yqwd=2492) 7.38 COMPREHENSIVE METABOLIC [id number] 05:59:00 Test Item Value Reference Range Comments TOTAL PROTEIN (BEAKER) 5.5 gm/dL 6.0-8.3 (test jdpx=697) ALBUMIN (BEAKER) (test 3.8 g/dL 3.5-5.0 yjjk=0316) ALKALINE PHOSPHATASE 125 U/L 40-150 (BEAKER) (test afkf=158) BILIRUBIN TOTAL (BEAKER) 0.9 mg/dL 0.2-1.2 (test blmo=298) SODIUM (BEAKER) (test 130 meq/L 136-145 ulva=655) POTASSIUM (BEAKER) (test 4.0 meq/L 3.5-5.1 sxeh=331) CHLORIDE (BEAKER) (test 99 meq/L 98-107 noxt=340) CO2 (BEAKER) (test 23 meq/L 22-29 tdag=053) BLOOD UREA NITROGEN 51 mg/dL 7-21 (BEAKER) (test isav=192) CREATININE (BEAKER) (test 2.07 mg/dL 0.57-1.25 nnbd=008) GLUCOSE RANDOM (BEAKER) 320 mg/dL 70-105 (test ilgv=061) CALCIUM (BEAKER) (test 8.7 mg/dL 8.4-10.2 qjwt=267) AST (SGOT) (BEAKER) (test 111 U/L 5-34 nvea=568) ALT (SGPT) (BEAKER) (test 98 U/L 6-55 jhbw=438) EGFR (BEAKER) (test 24 mL/min/1.73 sq m ESTIMATED GFR IS NOT bjyv=7560) ACCURATE CREATININE CLEARANCE IN PREDICTING GLOMERULAR FILTRATION RATE. ESTIMATED GFR IS NOT APPLICABLE FOR DIALYSIS PATIENTS. [id number] 05:58:00 Test Item Value Reference Range Comments PHOSPHORUS (BEAKER) (test mmrz=473) 2.1 mg/dL 2.3-4.7 [id number] 05:58:00 Test Item Value Reference Range Comments MAGNESIUM (BEAKER) (test sgqi=372) 2.3 mg/dL 1.6-2.6 HEPATIC FUNCTION [id number] 05:58:00 Test Item Value Reference Range Comments TOTAL PROTEIN (BEAKER) (test yqcp=633) 5.5 gm/dL 6.0-8.3 ALBUMIN (BEAKER) (test wntn=0912) 3.8 g/dL 3.5-5.0 BILIRUBIN TOTAL (BEAKER) (test ygai=156) 0.9 mg/dL 0.2-1.2 BILIRUBIN DIRECT (BEAKER) (test wycd=284) 0.4 mg/dL 0.1-0.5 ALKALINE PHOSPHATASE (BEAKER) (test rlwg=337) 125 U/L 40-150 AST (SGOT) (BEAKER) (test dvbs=628) 111 U/L 5-34 ALT (SGPT) (BEAKER) (test bnpw=262) 98 U/L 6-55 CBC W/PLT COUNT & AUTO [id number] 05:29:00 Test Item Value Reference Range Comments WHITE BLOOD CELL COUNT (BEAKER) (test dpxs=154) 5.9 K/ L 3.5-10.5 RED BLOOD CELL COUNT (BEAKER) (test vhvs=363) 3.00 M/ L 3.93-5.22 HEMOGLOBIN (BEAKER) (test vska=959) 8.5 GM/DL 11.2-15.7 HEMATOCRIT (BEAKER) (test vfyp=616) 25.3 % 34.1-44.9 MEAN CORPUSCULAR VOLUME (BEAKER) (test bwfw=731) 84.3 fL 79.4-94.8 MEAN CORPUSCULAR HEMOGLOBIN (BEAKER) (test 28.3 pg 25.6-32.2 lgwr=310) MEAN CORPUSCULAR HEMOGLOBIN CONC (BEAKER) (test 33.6 GM/DL 32.2-35.5 fdkz=198) RED CELL DISTRIBUTION WIDTH (BEAKER) (test 14.8 % 11.7-14.4 qwzz=761) PLATELET COUNT (BEAKER) (test mrtj=052) 146 K/CU MM 150-450 MEAN PLATELET VOLUME (BEAKER) (test wkrc=869) 10.1 fL 9.4-12.3 NUCLEATED RED BLOOD CELLS (BEAKER) (test 0 /100 WBC 0-0 ifmt=064) NEUTROPHILS RELATIVE PERCENT (BEAKER) (test 67 % ncgh=108) LYMPHOCYTES RELATIVE PERCENT (BEAKER) (test 16 % odcu=635) MONOCYTES RELATIVE PERCENT (BEAKER) (test 10 % tvdk=991) EOSINOPHILS RELATIVE PERCENT (BEAKER) (test 6 % lhch=071) BASOPHILS RELATIVE PERCENT (BEAKER) (test 1 % cvsp=214) NEUTROPHILS ABSOLUTE COUNT (BEAKER) (test 3.94 K/ L 1.56-6.13 palr=846) LYMPHOCYTES ABSOLUTE COUNT (BEAKER) (test 0.96 K/ L 1.18-3.74 hunm=601) MONOCYTES ABSOLUTE COUNT (BEAKER) (test 0.57 K/ L 0.24-0.36 mwui=815) EOSINOPHILS ABSOLUTE COUNT (BEAKER) (test 0.37 K/ L 0.04-0.36 isox=879) BASOPHILS ABSOLUTE COUNT (BEAKER) (test 0.03 K/ L 0.01-0.08 ebnv=902) IMMATURE GRANULOCYTES-RELATIVE PERCENT (BEAKER) 0 % 0-1 (test xoqq=2214) POCT-GLUCOSE [id number] 21:01:00 Test Item Value Reference Range Comments POC-GLUCOSE METER (BEAKER) 371 mg/dL 70-110 Notified ALEXI ENNIS/TESTED AT [facility] (test gcej=5327) [address] [place] [address] POCT-GLUCOSE [id number] 17:30:00 Test Item Value Reference Range Comments POC-GLUCOSE METER (BEAKER) 389 mg/dL 70-110 TESTED AT [address] (test tbkf=0546) [facility] [address] POCT-GLUCOSE [id number] 08:50:00 Test Item Value Reference Range Comments POC-GLUCOSE METER (BEAKER) 303 mg/dL 70-110 TESTED AT [address] (test auqv=3015) [facility] [address] POCT-GLUCOSE [id number] 08:27:00 Test Item Value Reference Range Comments POC-GLUCOSE METER (BEAKER) 342 mg/dL 70-110 Will Repeat Test/TESTED AT (test tonx=5640) [facility] [address] [facility] [address] CALCIUM, [id number] 07:20:00 Test Item Value Reference Range Comments CALCIUM IONIZED (BEAKER) (test xfxe=079) 0.98 mmol/L 1.12-1.27 PH, BLOOD (BEAKER) (test uccy=5196) 7.41 COMPREHENSIVE METABOLIC [id number] 07:05:00 Test Item Value Reference Range Comments TOTAL PROTEIN (BEAKER) 5.0 gm/dL 6.0-8.3 (test wrix=942) ALBUMIN (BEAKER) (test 3.3 g/dL 3.5-5.0 rgsr=3641) ALKALINE PHOSPHATASE 126 U/L 40-150 (BEAKER) (test sgad=342) BILIRUBIN TOTAL (BEAKER) 1.2 mg/dL 0.2-1.2 (test wuzy=656) SODIUM (BEAKER) (test 128 meq/L 136-145 ated=858) POTASSIUM (BEAKER) (test 4.1 meq/L 3.5-5.1 mana=137) CHLORIDE (BEAKER) (test 98 meq/L 98-107 oozg=019) CO2 (BEAKER) (test 20 meq/L 22-29 hpyo=283) BLOOD UREA NITROGEN 43 mg/dL 7-21 (BEAKER) (test zcal=256) CREATININE (BEAKER) (test 2.39 mg/dL 0.57-1.25 zbkk=799) GLUCOSE RANDOM (BEAKER) 305 mg/dL 70-105 (test ezsh=826) CALCIUM (BEAKER) (test 8.1 mg/dL 8.4-10.2 leuo=133) AST (SGOT) (BEAKER) (test 173 U/L 5-34 ytgf=228) ALT (SGPT) (BEAKER) (test 143 U/L 6-55 lcpt=768) EGFR (BEAKER) (test 21 mL/min/1.73 sq m ESTIMATED GFR IS NOT clgp=7189) ACCURATE CREATININE CLEARANCE IN PREDICTING GLOMERULAR FILTRATION RATE. ESTIMATED GFR IS NOT APPLICABLE FOR DIALYSIS PATIENTS. [id number] 06:56:00 Test Item Value Reference Range Comments PHOSPHORUS (BEAKER) (test brma=939) 2.5 mg/dL 2.3-4.7 [id number] 06:56:00 Test Item Value Reference Range Comments MAGNESIUM (BEAKER) (test nipr=383) 1.9 mg/dL 1.6-2.6 HEPATIC FUNCTION [id number] 06:56:00 Test Item Value Reference Range Comments TOTAL PROTEIN (BEAKER) (test axbn=252) 5.0 gm/dL 6.0-8.3 ALBUMIN (BEAKER) (test chcw=8044) 3.3 g/dL 3.5-5.0 BILIRUBIN TOTAL (BEAKER) (test ueuw=750) 1.2 mg/dL 0.2-1.2 BILIRUBIN DIRECT (BEAKER) (test qcar=980) 0.6 mg/dL 0.1-0.5 ALKALINE PHOSPHATASE (BEAKER) (test hlzo=453) 126 U/L 40-150 AST (SGOT) (BEAKER) (test oswj=252) 173 U/L 5-34 ALT (SGPT) (BEAKER) (test hhrg=980) 143 U/L 6-55 CBC W/PLT COUNT & AUTO [id number] 06:17:00 Test Item Value Reference Range Comments WHITE BLOOD CELL COUNT (BEAKER) (test gozp=051) 5.7 K/ L 3.5-10.5 RED BLOOD CELL COUNT (BEAKER) (test mobp=307) 3.40 M/ L 3.93-5.22 HEMOGLOBIN (BEAKER) (test ndvk=998) 9.2 GM/DL 11.2-15.7 HEMATOCRIT (BEAKER) (test xkoe=692) 29.1 % 34.1-44.9 MEAN CORPUSCULAR VOLUME (BEAKER) (test zlqv=274) 85.6 fL 79.4-94.8 MEAN CORPUSCULAR HEMOGLOBIN (BEAKER) (test 27.1 pg 25.6-32.2 mrez=879) MEAN CORPUSCULAR HEMOGLOBIN CONC (BEAKER) (test 31.6 GM/DL 32.2-35.5 dsml=264) RED CELL DISTRIBUTION WIDTH (BEAKER) (test 14.7 % 11.7-14.4 wyay=415) PLATELET COUNT (BEAKER) (test tslq=096) 128 K/CU MM 150-450 MEAN PLATELET VOLUME (BEAKER) (test imep=212) 10.3 fL 9.4-12.3 NUCLEATED RED BLOOD CELLS (BEAKER) (test 0 /100 WBC 0-0 rfpw=046) NEUTROPHILS RELATIVE PERCENT (BEAKER) (test 69 % cczt=104) LYMPHOCYTES RELATIVE PERCENT (BEAKER) (test 15 % yexn=580) MONOCYTES RELATIVE PERCENT (BEAKER) (test 9 % mvih=585) EOSINOPHILS RELATIVE PERCENT (BEAKER) (test 6 % gnlf=226) BASOPHILS RELATIVE PERCENT (BEAKER) (test 1 % dgbe=685) NEUTROPHILS ABSOLUTE COUNT (BEAKER) (test 3.91 K/ L 1.56-6.13 gvxc=545) LYMPHOCYTES ABSOLUTE COUNT (BEAKER) (test 0.86 K/ L 1.18-3.74 pllp=994) MONOCYTES ABSOLUTE COUNT (BEAKER) (test 0.51 K/ L 0.24-0.36 yvdk=842) EOSINOPHILS ABSOLUTE COUNT (BEAKER) (test 0.35 K/ L 0.04-0.36 fuyw=064) BASOPHILS ABSOLUTE COUNT (BEAKER) (test 0.03 K/ L 0.01-0.08 nnnt=379) IMMATURE GRANULOCYTES-RELATIVE PERCENT (BEAKER) 0 % 0-1 (test olks=7512) BODY FLUID CELL COUNT WITH [id number] 17:06:00 Test Item Value Reference Range Comments APPEARANCE FLUID (BEAKER) (test zksq=322) Hazy Clear COLOR FLUID (BEAKER) (test mppo=413) Yellow Colorless, Straw RBC FLUID (BEAKER) (test xkny=994) 6000 /cu mm <=1 ADJUSTED WBC FLUID (BEAKER) (test bmen=4376) 125 /cu mm <=5 LINING CELLS (BEAKER) (test yycl=2315) 2 /cu mm <=1 NEUTROPHILS FLUID (BEAKER) (test wazj=8980) 6 % LYMPHS FLUID (BEAKER) (test piqt=252) 21 % MONO/MACROPHAGE FLUID (BEAKER) (test ucen=189) 73 % EOSINOPHILS FLUID (BEAKER) (test qsca=910) 0 % BASO FLUID (BEAKER) (test tcbl=184) 0 % CONTAINER BODY FLUID (BEAKER) (test hbef=7607) EDTA Tube POCT-GLUCOSE [id number] 16:40:00 Test Item Value Reference Range Comments POC-GLUCOSE METER (BEAKER) 396 mg/dL 70-[address] [facility] [address] (test uygw=4631) [facility] [address] U/S, [id number] 16:12:00limit to 6 LReason for exam:->ascites, limit to 6 LFINAL REPORT Paracentesis dated 02/22/2019 Procedure: Ultrasound-guided paracentesis. Preprocedure diagnosis: Ascites Postprocedure diagnosis: Ascites Conscious sedation: None. Radiologist: Giovanni Haas M.D. Car Salter: None Anesthesia: 1% Xylocaine mixed with sodium bicarbonate local anesthesia. Technique: After obtaining informed consent, ultrasound-guided paracentesis was performed under usual sterile technique. Using a 5 [place] drainage catheter, puncture was made in the right lower quadrant abdomen. Approximately 6000 cc of serous fluid was removed. Patient tolerated the procedure well without complication. Complication: None Graft/ Implant: None Estimated Blood Loss: None Impression: Ultrasound-guided paracentesis. Signed: Giovanni Haas Verified Date/Time: 02/22/2019 16:12 :23 Reading Location: [facility] C013Y CT Body Reading Room RAD, CHEST, 1 VIEW, NON [id number] 12:22:00Reason for exam:->coughShould this be performed at [...] Date/ Time: 02/22/2019 12:22:24 Reading Location: [facility] C013W Consult Reading Room POCT-GLUCOSE [id number] 07:55:00 Test Item Value Reference Range Comments POC-GLUCOSE METER (BEAKER) 317 mg/dL 70-110 TESTED AT [address] (test cahk=5214) [facility] [address] POCT-GLUCOSE [id number] 07:24:00 Test Item Value Reference Range Comments POC-GLUCOSE METER (BEAKER) 386 mg/dL 70-110 Notified ALEXI ENNIS/TESTED AT [facility] (test dcod=9272) [address] [place] [address] POCT-GLUCOSE [id number] 07:24:00 Test Item Value Reference Range Comments POC-GLUCOSE METER (BEAKER) 295 mg/dL 70-110 TESTED AT [address] (test jhsb=6241) [facility] [address] POCT-GLUCOSE [id number] 07:24:00 Test Item Value Reference Range Comments POC-GLUCOSE METER (BEAKER) 256 mg/dL 70-110 TESTED AT [address] (test vhgt=3709) [facility] [address] BASIC METABOLIC [id number] 06:50:00 Test Item Value Reference Range Comments SODIUM (BEAKER) (test 128 meq/L 136-145 dyid=244) POTASSIUM (BEAKER) (test 4.0 meq/L 3.5-5.1 mxrn=411) CHLORIDE (BEAKER) (test 100 meq/L 98-107 aivi=074) CO2 (BEAKER) (test 21 meq/L 22-29 dnte=351) BLOOD UREA NITROGEN 40 mg/dL 7-21 (BEAKER) (test hgxb=758) CREATININE (BEAKER) (test 2.62 mg/dL 0.57-1.25 smih=088) GLUCOSE RANDOM (BEAKER) 351 mg/dL 70-105 (test hlwk=652) CALCIUM (BEAKER) (test 8.0 mg/dL 8.4-10.2 xedy=340) EGFR (BEAKER) (test 19 mL/min/1.73 sq m ESTIMATED GFR IS NOT ygbx=9558) ACCURATE CREATININE CLEARANCE IN PREDICTING GLOMERULAR FILTRATION RATE. ESTIMATED GFR IS NOT APPLICABLE FOR DIALYSIS PATIENTS. [id number] 06:46:00 Test Item Value Reference Range Comments MAGNESIUM (BEAKER) (test gtbj=528) 1.9 mg/dL 1.6-2.6 BLOOD [id number] 20:01:00 Test Item Value Reference Range Comments CULTURE (BEAKER) (test dtgu=0199) No growth in 5 days BLOOD [id number] 20:01:00 Test Item Value Reference Range Comments CULTURE (BEAKER) (test acyj=1047) No growth in 5 days POCT-GLUCOSE [id number] 08:39:00 Test Item Value Reference Range Comments POC-GLUCOSE METER (BEAKER) 300 mg/dL 70-[address] [facility] [address] (test zgsy=7998) [facility] [address] POCT-GLUCOSE [id number] 08:39:00 Test Item Value Reference Range Comments POC-GLUCOSE METER (BEAKER) 330 mg/dL 70-110 Notified ALEXI ENNIS/TESTED AT [facility] (test naiz=5767) [address] [facility] [address] COMPREHENSIVE METABOLIC [id number] 08:25:00 Test Item Value Reference Range Comments TOTAL PROTEIN (BEAKER) 4.9 gm/dL 6.0-8.3 (test dear=376) ALBUMIN (BEAKER) (test 3.3 g/dL 3.5-5.0 ygcx=9177) ALKALINE PHOSPHATASE 129 U/L 40-150 (BEAKER) (test wqxu=800) BILIRUBIN TOTAL (BEAKER) 1.2 mg/dL 0.2-1.2 (test bcxh=373) SODIUM (BEAKER) (test 130 meq/L 136-145 mdhm=022) POTASSIUM (BEAKER) (test 4.5 meq/L 3.5-5.1 pfgc=252) CHLORIDE (BEAKER) (test 102 meq/L 98-107 zvsw=859) CO2 (BEAKER) (test 20 meq/L 22-29 hirb=262) BLOOD UREA NITROGEN 32 mg/dL 7-21 (BEAKER) (test pyeb=804) CREATININE (BEAKER) (test 2.28 mg/dL 0.57-1.25 forl=971) GLUCOSE RANDOM (BEAKER) 341 mg/dL 70-105 (test quik=660) CALCIUM (BEAKER) (test 8.1 mg/dL 8.4-10.2 rxqx=089) AST (SGOT) (BEAKER) (test 851 U/L 5-34 afkw=289) ALT (SGPT) (BEAKER) (test 345 U/L 6-55 vkhv=461) EGFR (BEAKER) (test 22 mL/min/1.73 sq m ESTIMATED GFR IS NOT lwmv=7354) ACCURATE CREATININE CLEARANCE IN PREDICTING GLOMERULAR FILTRATION RATE. ESTIMATED GFR IS NOT APPLICABLE FOR DIALYSIS PATIENTS. [id number] 08:19:00 Test Item Value Reference Range Comments PHOSPHORUS (BEAKER) (test cdmp=793) 2.3 mg/dL 2.3-4.7 [id number] 08:19:00 Test Item Value Reference Range Comments MAGNESIUM (BEAKER) (test rwta=410) 1.9 mg/dL 1.6-2.6 CALCIUM, [id number] 07:20:00 Test Item Value Reference Range Comments CALCIUM IONIZED (BEAKER) (test tlzo=790) 0.98 mmol/L 1.12-1.27 PH, BLOOD (BEAKER) (test vudt=8679) 7.42 CBC W/PLT COUNT & AUTO [id number] 06:36:00 Test Item Value Reference Range Comments WHITE BLOOD CELL COUNT (BEAKER) (test zorh=812) 8.1 K/ L 3.5-10.5 RED BLOOD CELL COUNT (BEAKER) (test ukos=743) 3.43 M/ L 3.93-5.22 HEMOGLOBIN (BEAKER) (test ondk=712) 9.2 GM/DL 11.2-15.7 HEMATOCRIT (BEAKER) (test sttf=318) 29.3 % 34.1-44.9 MEAN CORPUSCULAR VOLUME (BEAKER) (test xgav=379) 85.4 fL 79.4-94.8 MEAN CORPUSCULAR HEMOGLOBIN (BEAKER) (test 26.8 pg 25.6-32.2 lvge=023) MEAN CORPUSCULAR HEMOGLOBIN CONC (BEAKER) (test 31.4 GM/DL 32.2-35.5 ekhp=307) RED CELL DISTRIBUTION WIDTH (BEAKER) (test 14.6 % 11.7-14.4 yksq=251) PLATELET COUNT (BEAKER) (test wpuf=839) 132 K/CU MM 150-450 MEAN PLATELET VOLUME (BEAKER) (test rnyc=874) 9.3 fL 9.4-12.3 NUCLEATED RED BLOOD CELLS (BEAKER) (test 0 /100 WBC 0-0 wlqc=202) NEUTROPHILS RELATIVE PERCENT (BEAKER) (test 77 % pcja=774) LYMPHOCYTES RELATIVE PERCENT (BEAKER) (test 13 % fwho=509) MONOCYTES RELATIVE PERCENT (BEAKER) (test 8 % chps=121) EOSINOPHILS RELATIVE PERCENT (BEAKER) (test 2 % uwej=299) BASOPHILS RELATIVE PERCENT (BEAKER) (test 1 % nucb=767) NEUTROPHILS ABSOLUTE COUNT (BEAKER) (test 6.17 K/ L 1.56-6.13 jnbb=338) LYMPHOCYTES ABSOLUTE COUNT (BEAKER) (test 1.02 K/ L 1.18-3.74 esgi=714) MONOCYTES ABSOLUTE COUNT (BEAKER) (test 0.61 K/ L 0.24-0.36 dfyb=292) EOSINOPHILS ABSOLUTE COUNT (BEAKER) (test 0.18 K/ L 0.04-0.36 fzbi=896) BASOPHILS ABSOLUTE COUNT (BEAKER) (test 0.05 K/ L 0.01-0.08 myzr=983) IMMATURE GRANULOCYTES-RELATIVE PERCENT (BEAKER) 1 % 0-1 (test bcya=0768) BASIC METABOLIC [id number] 19:24:00 Test Item Value Reference Range Comments SODIUM (BEAKER) (test 132 meq/L 136-145 pkwj=312) POTASSIUM (BEAKER) (test 4.8 meq/L 3.5-5.1 lywt=849) CHLORIDE (BEAKER) (test 103 meq/L 98-107 onia=785) CO2 (BEAKER) (test 20 meq/L 22-29 klcp=182) BLOOD UREA NITROGEN 30 mg/dL 7-21 (BEAKER) (test nber=248) CREATININE (BEAKER) (test 1.85 mg/dL 0.57-1.25 wmsf=668) GLUCOSE RANDOM (BEAKER) 297 mg/dL 70-105 (test wzez=528) CALCIUM (BEAKER) (test 8.7 mg/dL 8.4-10.2 ngjs=350) EGFR (BEAKER) (test 28 mL/min/1.73 sq m ESTIMATED GFR IS NOT xujj=0748) ACCURATE CREATININE CLEARANCE IN PREDICTING GLOMERULAR FILTRATION RATE. ESTIMATED GFR IS NOT APPLICABLE FOR DIALYSIS PATIENTS. Please draw [address] Quiroz at [phone] with results.Call [id number] 19:22:00 Test Item Value Reference Range Comments SODIUM (BEAKER) (test uslg=031) 132 meq/L 136-145 POTASSIUM (BEAKER) (test gvvo=772) 4.8 meq/L 3.5-5.1 CHLORIDE (BEAKER) (test cbjv=049) 103 meq/L 98-107 CO2 (BEAKER) (test whty=246) 20 meq/L 22-29 Please draw 4 hours after [address]. Page Dr. Quiroz at [phone] with results.Call [id number] 18:11:00 Test Item Value Reference Range Comments POC-GLUCOSE METER (BEAKER) 314 mg/dL 70-110 TESTED AT [address] (test mzpq=0181) [place] [id number] POCT-GLUCOSE [id number] 17:29:00 Test Item Value Reference Range Comments POC-GLUCOSE METER (BEAKER) 255 mg/dL 70-110 TESTED AT [address] (test vnlf=4038) [facility] [address] POCT-GLUCOSE [id number] 13:02:00 Test Item Value Reference Range Comments POC-GLUCOSE METER (BEAKER) 289 mg/dL 70-110 TESTED AT [address] (test nwls=1040) [place] [id number] BODY FLUID CULTURE + GRAM [id number] 12:08:00 Test Item Value Reference Range Comments CULTURE (BEAKER) (test wrgb=3333) No growth GRAM STAIN RESULT (BEAKER) (test <1+ WBCs fpil=8488) GRAM STAIN RESULT (BEAKER) (test No organisms seen mhkh=36991) SEAMUS [id number] 09:29:00Reason for exam:->cirrhosis/ portal hypertension , refractory [...] and a bleeding placement of a 10 [place] sheath from theright hepatic vein to the [...] 1 L of yellow fluid. The 5 [place] needle/catheter was inserted with real-time ultrasound guidance into the peritoneal cavity in the right lateral abdomen following sterile preparation. Following this, the sheath catheter was removed. CONCLUSION: Successful TIPS and paracentesis. Signed: Yulia Kaba MDReport Verified Date/Time: 02/20/2019 09:29:18 Reading Location : [place] [address] Angio Body Reading Room CALCIUM, [id number] 06:43:00 Test Item Value Reference Range Comments CALCIUM IONIZED (BEAKER) (test weaf=525) 1.02 mmol/L 1.12-1.27 PH, BLOOD (BEAKER) (test vxoq=5566) 7.40 [id number] 06:12:00 Test Item Value Reference Range Comments PHOSPHORUS (BEAKER) (test gzqw=236) 2.5 mg/dL 2.3-4.7 [id number] 06:12:00 Test Item Value Reference Range Comments MAGNESIUM (BEAKER) (test zepc=782) 1.6 mg/dL 1.6-2.6 HEPATIC FUNCTION [id number] 06:12:00 Test Item Value Reference Range Comments TOTAL PROTEIN (BEAKER) (test ekax=964) 5.3 gm/dL 6.0-8.3 ALBUMIN (BEAKER) (test ohfc=3572) 3.6 g/dL 3.5-5.0 BILIRUBIN TOTAL (BEAKER) (test mqkw=300) 1.2 mg/dL 0.2-1.2 BILIRUBIN DIRECT (BEAKER) (test turd=409) 0.6 mg/dL 0.1-0.5 ALKALINE PHOSPHATASE (BEAKER) (test nsvk=661) 80 U/L 40-150 AST (SGOT) (BEAKER) (test rkoe=568) 99 U/L 5-34 ALT (SGPT) (BEAKER) (test vczb=258) 52 U/L 6-55 COMPREHENSIVE METABOLIC [id number] 06:12:00 Test Item Value Reference Range Comments TOTAL PROTEIN (BEAKER) 5.3 gm/dL 6.0-8.3 (test guxx=924) ALBUMIN (BEAKER) (test 3.6 g/dL 3.5-5.0 mdzg=5583) ALKALINE PHOSPHATASE 80 U/L 40-150 (BEAKER) (test qejo=988) BILIRUBIN TOTAL (BEAKER) 1.2 mg/dL 0.2-1.2 (test aczt=727) SODIUM (BEAKER) (test 133 meq/L 136-145 ybdx=366) POTASSIUM (BEAKER) (test 5.4 meq/L 3.5-5.1 tjpz=282) CHLORIDE (BEAKER) (test 104 meq/L 98-107 jyno=012) CO2 (BEAKER) (test 22 meq/L 22-29 zgpy=160) BLOOD UREA NITROGEN 27 mg/dL 7-21 (BEAKER) (test mghl=640) CREATININE (BEAKER) (test 1.58 mg/dL 0.57-1.25 qbml=606) GLUCOSE RANDOM (BEAKER) 300 mg/dL 70-105 (test oclx=417) CALCIUM (BEAKER) (test 8.4 mg/dL 8.4-10.2 bqtt=394) AST (SGOT) (BEAKER) (test 99 U/L 5-34 xomw=817) ALT (SGPT) (BEAKER) (test 52 U/L 6-55 itod=089) EGFR (BEAKER) (test 33 mL/min/1.73 sq m ESTIMATED GFR IS NOT mrtw=5785) ACCURATE CREATININE CLEARANCE IN PREDICTING GLOMERULAR FILTRATION RATE. ESTIMATED GFR IS NOT APPLICABLE FOR DIALYSIS PATIENTS. PROTHROMBIN [id number] 05:57:00 Test Item Value Reference Range Comments PROTIME (BEAKER) (test pgmi=570) 16.4 seconds 11.7-14.7 INR (BEAKER) (test nsgq=463) 1.3 <=5.9 RECOMMENDED COUMADIN/WARFARIN INR THERAPY RANGESSTANDARD DOSE: 2.0 - 3.0 Includes: PROPHYLAXIS forvenous thrombosis, systemic embolization; TREATMENT for venous thrombosis and/or pulmonary embolus.HIGH RISK: Target INR is 2.5-3.5 for patients with mechanical heart valves.CBC W/PLT COUNT & AUTO [id number] 05:54:00 Test Item Value Reference Range Comments WHITE BLOOD CELL COUNT (BEAKER) (test akxt=223) 7.9 K/ L 3.5-10.5 RED BLOOD CELL COUNT (BEAKER) (test bwua=788) 3.24 M/ L 3.93-5.22 HEMOGLOBIN (BEAKER) (test wgqf=776) 8.9 GM/DL 11.2-15.7 HEMATOCRIT (BEAKER) (test wjgl=110) 28.0 % 34.1-44.9 MEAN CORPUSCULAR VOLUME (BEAKER) (test dedu=492) 86.4 fL 79.4-94.8 MEAN CORPUSCULAR HEMOGLOBIN (BEAKER) (test 27.5 pg 25.6-32.2 avee=289) MEAN CORPUSCULAR HEMOGLOBIN CONC (BEAKER) (test 31.8 GM/DL 32.2-35.5 viyn=870) RED CELL DISTRIBUTION WIDTH (BEAKER) (test 14.4 % 11.7-14.4 frqf=248) PLATELET COUNT (BEAKER) (test jdks=488) 132 K/CU MM 150-450 MEAN PLATELET VOLUME (BEAKER) (test epku=703) 9.3 fL 9.4-12.3 NUCLEATED RED BLOOD CELLS (BEAKER) (test 0 /100 WBC 0-0 mlqn=840) NEUTROPHILS RELATIVE PERCENT (BEAKER) (test 83 % nhwl=267) LYMPHOCYTES RELATIVE PERCENT (BEAKER) (test 10 % rwaf=654) MONOCYTES RELATIVE PERCENT (BEAKER) (test 7 % drjt=416) EOSINOPHILS RELATIVE PERCENT (BEAKER) (test 0 % qujj=959) BASOPHILS RELATIVE PERCENT (BEAKER) (test 0 % tyob=136) NEUTROPHILS ABSOLUTE COUNT (BEAKER) (test 6.55 K/ L 1.56-6.13 bvxg=336) LYMPHOCYTES ABSOLUTE COUNT (BEAKER) (test 0.77 K/ L 1.18-3.74 nllx=139) MONOCYTES ABSOLUTE COUNT (BEAKER) (test 0.55 K/ L 0.24-0.36 fjgp=037) EOSINOPHILS ABSOLUTE COUNT (BEAKER) (test 0.00 K/ L 0.04-0.36 pflo=965) BASOPHILS ABSOLUTE COUNT (BEAKER) (test 0.02 K/ L 0.01-0.08 bzqv=808) IMMATURE GRANULOCYTES-RELATIVE PERCENT (BEAKER) 0 % 0-1 (test voic=4075) POCT-GLUCOSE [id number] 19:01:00 Test Item Value Reference Range Comments POC-GLUCOSE METER (BEAKER) 301 mg/dL 70-[address] [facility] [address] [place] [address] (test uetc=2302) [facility] [address] [address], ABDOMEN, WITHOUT [id number] 12:33:00FINAL REPORT ABDOMINAL CT DATED 02/19/2019 CLINICAL [...] [place] Verified Date/Time: 02/19/2019 12:33:54 Reading Location: [address] Body Reading Room Electronicallysigned by: GIOVANNI HAAS M.D. on 02/19/2019 12:33 PMBODY FLUID CULTURE + GRAM [id number] 12:08:00 Test Item Value Reference Range Comments CULTURE (BEAKER) (test ouey=4359) No growth GRAM STAIN RESULT (BEAKER) (test <1+ WBCs tsnl=3281) GRAM STAIN RESULT (BEAKER) (test No organisms seen sewr=30735) POCT-GLUCOSE [id number] 09:38:00 Test Item Value Reference Range Comments POC-GLUCOSE METER (BEAKER) 274 mg/dL 70-110 TESTED AT [address] (test pkjh=4881) [facility] [address] CALCIUM, [id number] 06:56:00 Test Item Value Reference Range Comments CALCIUM IONIZED (BEAKER) (test xata=237) 1.05 mmol/L 1.12-1.27 PH, BLOOD (BEAKER) (test zamo=3032) 7.40 [id number] 06:22:00 Test Item Value Reference Range Comments PHOSPHORUS (BEAKER) (test jkgd=962) 2.3 mg/dL 2.3-4.7 [id number] 06:22:00 Test Item Value Reference Range Comments MAGNESIUM (BEAKER) (test jfse=273) 1.7 mg/dL 1.6-2.6 HEPATIC FUNCTION [id number] 06:22:00 Test Item Value Reference Range Comments TOTAL PROTEIN (BEAKER) (test uvtd=475) 5.6 gm/dL 6.0-8.3 ALBUMIN (BEAKER) (test juvw=7335) 3.4 g/dL 3.5-5.0 BILIRUBIN TOTAL (BEAKER) (test nhiq=375) 0.9 mg/dL 0.2-1.2 BILIRUBIN DIRECT (BEAKER) (test haoi=860) 0.4 mg/dL 0.1-0.5 ALKALINE PHOSPHATASE (BEAKER) (test ekli=100) 121 U/L 40-150 AST (SGOT) (BEAKER) (test mnrm=094) 28 U/L 5-34 ALT (SGPT) (BEAKER) (test pqaz=320) 12 U/L 6-55 COMPREHENSIVE METABOLIC [id number] 06:22:00 Test Item Value Reference Range Comments TOTAL PROTEIN (BEAKER) 5.6 gm/dL 6.0-8.3 (test lqce=766) ALBUMIN (BEAKER) (test 3.4 g/dL 3.5-5.0 pqbo=3567) ALKALINE PHOSPHATASE 121 U/L 40-150 (BEAKER) (test daoq=472) BILIRUBIN TOTAL (BEAKER) 0.9 mg/dL 0.2-1.2 (test kjln=490) SODIUM (BEAKER) (test 135 meq/L 136-145 mldd=454) POTASSIUM (BEAKER) (test 4.5 meq/L 3.5-5.1 nxku=184) CHLORIDE (BEAKER) (test 105 meq/L 98-107 cbag=658) CO2 (BEAKER) (test 22 meq/L 22-29 iovf=068) BLOOD UREA NITROGEN 29 mg/dL 7-21 (BEAKER) (test ihuf=290) CREATININE (BEAKER) (test 1.38 mg/dL 0.57-1.25 ykqt=306) GLUCOSE RANDOM (BEAKER) 313 mg/dL 70-105 (test frmf=522) CALCIUM (BEAKER) (test 8.7 mg/dL 8.4-10.2 kekk=403) AST (SGOT) (BEAKER) (test 28 U/L 5-34 fjna=758) ALT (SGPT) (BEAKER) (test 12 U/L 6-55 nswq=067) EGFR (BEAKER) (test 39 mL/min/1.73 sq m ESTIMATED GFR IS NOT uhsr=7515) ACCURATE CREATININE CLEARANCE IN PREDICTING GLOMERULAR FILTRATION RATE. ESTIMATED GFR IS NOT APPLICABLE FOR DIALYSIS PATIENTS. PROTHROMBIN [id number] 06:15:00 Test Item Value Reference Range Comments PROTIME (BEAKER) (test wted=696) 14.0 seconds 11.7-14.7 INR (BEAKER) (test sohn=751) 1.1 <=5.9 RECOMMENDED COUMADIN/WARFARIN INR THERAPY RANGESSTANDARD DOSE: 2.0 - 3.0 Includes: PROPHYLAXIS forvenous thrombosis, systemic embolization; TREATMENT for venous thrombosis and/or pulmonary embolus.HIGH RISK: Target INR is 2.5-3.5 for patients with mechanical heart valves.CBC W/PLT COUNT & AUTO [id number] 05:57:00 Test Item Value Reference Range Comments WHITE BLOOD CELL COUNT (BEAKER) (test mmsp=056) 6.9 K/ L 3.5-10.5 RED BLOOD CELL COUNT (BEAKER) (test snwu=127) 3.83 M/ L 3.93-5.22 HEMOGLOBIN (BEAKER) (test sket=168) 10.5 GM/DL 11.2-15.7 HEMATOCRIT (BEAKER) (test exna=354) 33.1 % 34.1-44.9 MEAN CORPUSCULAR VOLUME (BEAKER) (test klrh=015) 86.4 fL 79.4-94.8 MEAN CORPUSCULAR HEMOGLOBIN (BEAKER) (test 27.4 pg 25.6-32.2 clhw=458) MEAN CORPUSCULAR HEMOGLOBIN CONC (BEAKER) (test 31.7 GM/DL 32.2-35.5 zxgk=386) RED CELL DISTRIBUTION WIDTH (BEAKER) (test 14.4 % 11.7-14.4 rort=186) PLATELET COUNT (BEAKER) (test biih=950) 175 K/CU MM 150-450 MEAN PLATELET VOLUME (BEAKER) (test urnp=787) 9.9 fL 9.4-12.3 NUCLEATED RED BLOOD CELLS (BEAKER) (test 0 /100 WBC 0-0 owfj=134) NEUTROPHILS RELATIVE PERCENT (BEAKER) (test 73 % nkat=190) LYMPHOCYTES RELATIVE PERCENT (BEAKER) (test 16 % ugbr=517) MONOCYTES RELATIVE PERCENT (BEAKER) (test 7 % kaow=847) EOSINOPHILS RELATIVE PERCENT (BEAKER) (test 4 % iqks=437) BASOPHILS RELATIVE PERCENT (BEAKER) (test 1 % lnme=905) NEUTROPHILS ABSOLUTE COUNT (BEAKER) (test 4.99 K/ L 1.56-6.13 dxom=924) LYMPHOCYTES ABSOLUTE COUNT (BEAKER) (test 1.09 K/ L 1.18-3.74 qgdb=173) MONOCYTES ABSOLUTE COUNT (BEAKER) (test 0.50 K/ L 0.24-0.36 pmca=444) EOSINOPHILS ABSOLUTE COUNT (BEAKER) (test 0.25 K/ L 0.04-0.36 hbxd=521) BASOPHILS ABSOLUTE COUNT (BEAKER) (test 0.04 K/ L 0.01-0.08 fuzb=181) IMMATURE GRANULOCYTES-RELATIVE PERCENT (BEAKER) 0 % 0-1 (test wyaw=4714) POCT-GLUCOSE [id number] 23:05:00 Test Item Value Reference Range Comments POC-GLUCOSE METER (BEAKER) 412 mg/dL 70-110 Will Repeat Test/TESTED AT (test yfoa=1455) [address] [address] POCT-GLUCOSE [id number] 22:12:00 Test Item Value Reference Range Comments POC-GLUCOSE METER (BEAKER) 371 mg/dL 70-110 TESTED AT [address] (test eewn=4048) [facility] [address] BODY FLUID CELL COUNT WITH [id number] 13:06:00 Test Item Value Reference Range Comments APPEARANCE FLUID (BEAKER) (test qwnc=703) Slightly Hazy Clear COLOR FLUID (BEAKER) (test mxeg=206) Yellow Colorless, Straw RBC FLUID (BEAKER) (test dsxn=633) 252 /cu mm <=1 ADJUSTED WBC FLUID (BEAKER) (test imje=8250) 112 /cu mm <=5 LINING CELLS (BEAKER) (test zjdu=9345) 10 /cu mm <=1 NEUTROPHILS FLUID (BEAKER) (test indh=9105) 8 % LYMPHS FLUID (BEAKER) (test mwmp=928) 40 % MONO/MACROPHAGE FLUID (BEAKER) (test 43 % wdfs=036) EOSINOPHILS FLUID (BEAKER) (test ymye=827) 0 % BASO FLUID (BEAKER) (test ruyo=293) 0 % CONTAINER BODY FLUID (BEAKER) (test EDTA Tube nqnx=5102) U/S, [id number] 10:21:00Limit 8 LReason for exam:->ascites, limit 8 [...] skin and deep soft tissues. A 5 [place]an one-step catheter was inserted and removed from the peritoneal space and approximately 8.0 liters of clear yellow fluid was aspirated from the abdomen. There were no immediate complications. Impression: Successful ultrasound guided paracentesis with aspiration of 8.0 liters of fluid. Signed: Akil Chung MDReport Verified Date/ Time: 02/18/2019 10:21:08 Reading Location: [address] Ultrasound Reading Room [id number] 07:08:00 Test Item Value Reference Range Comments MAGNESIUM (BEAKER) (test mpwd=889) 1.7 mg/dL 1.6-2.6 HEPATIC FUNCTION [id number] 07:08:00 Test Item Value Reference Range Comments TOTAL PROTEIN (BEAKER) (test bxii=697) 5.4 gm/dL 6.0-8.3 ALBUMIN (BEAKER) (test bcev=4790) 3.2 g/dL 3.5-5.0 BILIRUBIN TOTAL (BEAKER) (test iovh=060) 0.8 mg/dL 0.2-1.2 BILIRUBIN DIRECT (BEAKER) (test tpwj=852) 0.4 mg/dL 0.1-0.5 ALKALINE PHOSPHATASE (BEAKER) (test fkyz=671) 104 U/L 40-150 AST (SGOT) (BEAKER) (test mevb=748) 20 U/L 5-34 ALT (SGPT) (BEAKER) (test aqzk=780) 10 U/L 6-55 COMPREHENSIVE METABOLIC [id number] 07:08:00 Test Item Value Reference Range Comments TOTAL PROTEIN (BEAKER) 5.4 gm/dL 6.0-8.3 (test nudk=908) ALBUMIN (BEAKER) (test 3.2 g/dL 3.5-5.0 saos=4489) ALKALINE PHOSPHATASE 104 U/L 40-150 (BEAKER) (test uumg=357) BILIRUBIN TOTAL (BEAKER) 0.8 mg/dL 0.2-1.2 (test loul=062) SODIUM (BEAKER) (test 136 meq/L 136-145 vwqo=221) POTASSIUM (BEAKER) (test 4.3 meq/L 3.5-5.1 mbvz=603) CHLORIDE (BEAKER) (test 108 meq/L 98-107 tgrd=088) CO2 (BEAKER) (test 22 meq/L 22-29 jnha=246) BLOOD UREA NITROGEN 31 mg/dL 7-21 (BEAKER) (test lhws=686) CREATININE (BEAKER) (test 1.26 mg/dL 0.57-1.25 ejgx=818) GLUCOSE RANDOM (BEAKER) 262 mg/dL 70-105 (test tjhf=869) CALCIUM (BEAKER) (test 8.5 mg/dL 8.4-10.2 zjev=943) AST (SGOT) (BEAKER) (test 20 U/L 5-34 kkid=270) ALT (SGPT) (BEAKER) (test 10 U/L 6-55 yups=695) EGFR (BEAKER) (test 43 mL/min/1.73 sq m ESTIMATED GFR IS NOT banu=3263) ACCURATE CREATININE CLEARANCE IN PREDICTING GLOMERULAR FILTRATION RATE. ESTIMATED GFR IS NOT APPLICABLE FOR DIALYSIS PATIENTS. [id number] 07:07:00 Test Item Value Reference Range Comments PHOSPHORUS (BEAKER) (test jgvx=403) 2.7 mg/dL 2.3-4.7 POCT-GLUCOSE [id number] 06:31:00 Test Item Value Reference Range Comments POC-GLUCOSE METER (BEAKER) 249 mg/dL 70-[address] [facility] [address] [facility] (test mfuj=7486) [facility] [address] URINALYSIS W/ [id number] 06:17:00 Test Item Value Reference Range Comments COLOR (BEAKER) (test lhmt=884) Yellow CLARITY (BEAKER) (test rbwb=218) Clear SPECIFIC GRAVITY UA (BEAKER) (test gfox=092) 1.013 1.001-1.035 PH UA (BEAKER) (test drcg=609) 5.0 5.0-8.0 PROTEIN UA (BEAKER) (test ikyo=366) Negative Negative GLUCOSE UA (BEAKER) (test oiwg=583) 100 mg/dL Negative KETONES UA (BEAKER) (test evcv=599) Negative Negative BILIRUBIN UA (BEAKER) (test zdab=269) Negative Negative BLOOD UA (BEAKER) (test abnw=011) Negative Negative NITRITE UA (BEAKER) (test areb=421) Negative Negative LEUKOCYTE ESTERASE UA (BEAKER) (test aoos=110) Large Negative UROBILINOGEN UA (BEAKER) (test wfsc=028) 0.2 mg/dL 0.2-1.0 RBC UA (BEAKER) (test hubt=190) 2 /HPF WBC UA (BEAKER) (test ixau=470) 24 /HPF SQUAMOUS EPITHELIAL (BEAKER) (test fwig=354) 14 /HPF HYALINE CASTS (BEAKER) (test fwzn=562) 3 /LPF SOURCE(BEAKER) (test xkxi=4022) Urine, Voided [id number] 05:53:00 Test Item Value Reference Range Comments PARTIAL THROMBOPLASTIN TIME (BEAKER) (test 20.1 seconds 22.5-36.0 mauj=421) CALCIUM, [id number] 05:50:00 Test Item Value Reference Range Comments CALCIUM IONIZED (BEAKER) (test hgfe=001) 1.00 mmol/L 1.12-1.27 PH, BLOOD (BEAKER) (test kwkd=3760) 7.43 PROTHROMBIN [id number] 04:54:00 Test Item Value Reference Range Comments PROTIME (BEAKER) (test xhyb=783) 13.8 seconds 11.7-14.7 INR (BEAKER) (test zcxc=932) 1.0 <=5.9 RECOMMENDED COUMADIN/WARFARIN INR THERAPY RANGESSTANDARD DOSE: 2.0 - 3.0 Includes: PROPHYLAXIS forvenous thrombosis, systemic embolization; TREATMENT for venous thrombosis and/or pulmonary embolus.HIGH RISK: Target INR is 2.5-3.5 for patients with mechanical heart valves.CREATININE, RANDOM [id number] 04: 48:00 Test Item Value Reference Range Comments CREATININE URINE (BEAKER) (test nmwn=471) 115.9 mg/dL Reference Range: No NormalsPROTEIN, RANDOM [id number] 04:48:00 Test Item Value Reference Range Comments PROTEIN, URINE (BEAKER) (test byua=3457) 12 mg/dL 0-14 CBC W/PLT COUNT & AUTO [id number] 04:30:00 Test Item Value Reference Range Comments WHITE BLOOD CELL COUNT (BEAKER) (test egqf=262) 5.2 K/ L 3.5-10.5 RED BLOOD CELL COUNT (BEAKER) (test yvaa=175) 3.58 M/ L 3.93-5.22 HEMOGLOBIN (BEAKER) (test fdhe=382) 9.8 GM/DL 11.2-15.7 HEMATOCRIT (BEAKER) (test eyna=942) 31.6 % 34.1-44.9 MEAN CORPUSCULAR VOLUME (BEAKER) (test jadh=709) 88.3 fL 79.4-94.8 MEAN CORPUSCULAR HEMOGLOBIN (BEAKER) (test 27.4 pg 25.6-32.2 adco=755) MEAN CORPUSCULAR HEMOGLOBIN CONC (BEAKER) (test 31.0 GM/DL 32.2-35.5 rgrt=401) RED CELL DISTRIBUTION WIDTH (BEAKER) (test 14.4 % 11.7-14.4 qcmc=262) PLATELET COUNT (BEAKER) (test jruq=441) 173 K/CU MM 150-450 MEAN PLATELET VOLUME (BEAKER) (test ufxj=832) 9.6 fL 9.4-12.3 NUCLEATED RED BLOOD CELLS (BEAKER) (test 0 /100 WBC 0-0 edyw=252) NEUTROPHILS RELATIVE PERCENT (BEAKER) (test 67 % bujs=970) LYMPHOCYTES RELATIVE PERCENT (BEAKER) (test 19 % olxe=078) MONOCYTES RELATIVE PERCENT (BEAKER) (test 8 % pmkr=345) EOSINOPHILS RELATIVE PERCENT (BEAKER) (test 5 % kzya=395) BASOPHILS RELATIVE PERCENT (BEAKER) (test 1 % pmcc=121) NEUTROPHILS ABSOLUTE COUNT (BEAKER) (test 3.43 K/ L 1.56-6.13 txuk=889) LYMPHOCYTES ABSOLUTE COUNT (BEAKER) (test 0.98 K/ L 1.18-3.74 ovze=671) MONOCYTES ABSOLUTE COUNT (BEAKER) (test 0.42 K/ L 0.24-0.36 zuec=705) EOSINOPHILS ABSOLUTE COUNT (BEAKER) (test 0.26 K/ L 0.04-0.36 wqgv=507) BASOPHILS ABSOLUTE COUNT (BEAKER) (test 0.04 K/ L 0.01-0.08 ckuy=800) IMMATURE GRANULOCYTES-RELATIVE PERCENT (BEAKER) 0 % 0-1 (test fjle=0982) U/S, ABDOMINAL, WITH [id number] 03:48:00Reason for exam:->TIPS workup , assess for [...] MDReport Verified Date/Time: 02/18/2019 03:48:21 Reading Location: [address] Neuro Reading Room Electronically signed by: Se SCHNEIDER 2018 03:48 AMPOCT-GLUCOSE [id number] 00:28:00 Test Item Value Reference Range Comments POC-GLUCOSE METER (BEAKER) 330 mg/dL 70-110 Will Repeat Test/TESTED AT (test kebd=1464) [facility] [address] [facility] [address] BODY FLUID CELL COUNT WITH [id number] 18:02:00 Test Item Value Reference Range Comments APPEARANCE FLUID (BEAKER) (test xsvg=393) Clear Clear COLOR FLUID (BEAKER) (test owdm=957) Yellow Colorless, Straw RBC FLUID (BEAKER) (test numz=508) 20 /cu mm <=1 ADJUSTED WBC FLUID (BEAKER) (test ntrx=5682) 50 /cu mm <=5 LINING CELLS (BEAKER) (test ozch=6200) 0 /cu mm <=1 NEUTROPHILS FLUID (BEAKER) (test hyov=1011) 1 % LYMPHS FLUID (BEAKER) (test fqok=190) 38 % MONO/MACROPHAGE FLUID (BEAKER) (test qlrx=118) 61 % EOSINOPHILS FLUID (BEAKER) (test yppk=850) 0 % BASO FLUID (BEAKER) (test esoh=848) 0 % CONTAINER BODY FLUID (BEAKER) (test zdxv=4832) EDTA Tube U/S, [id number] 16:30:00limit volume to 8 LReason for exam:-> [...] MDReport Verified Date/Time: 02/17 16:30:42 Reading Location: [address] Ultrasound Reading Room POCT-GLUCOSE [id number] 09:48:00 Test Item Value Reference Range Comments POC-GLUCOSE METER (BEAKER) 198 mg/dL 70-110 TESTED AT [address] (test hysu=3421) [facility] [address] BASIC METABOLIC [id number] 06:30:00 Test Item Value Reference Range Comments SODIUM (BEAKER) (test 137 meq/L 136-145 jtes=287) POTASSIUM (BEAKER) (test 4.5 meq/L 3.5-5.1 ogql=133) CHLORIDE (BEAKER) (test 107 meq/L 98-107 qwbo=869) CO2 (BEAKER) (test 24 meq/L 22-29 mckq=052) BLOOD UREA NITROGEN 41 mg/dL 7-21 (BEAKER) (test otns=561) CREATININE (BEAKER) (test 1.48 mg/dL 0.57-1.25 wvmc=144) GLUCOSE RANDOM (BEAKER) 200 mg/dL 70-105 (test wtwi=390) CALCIUM (BEAKER) (test 8.9 mg/dL 8.4-10.2 ghcy=738) EGFR (BEAKER) (test 36 mL/min/1.73 sq m ESTIMATED GFR IS NOT knyq=8339) ACCURATE CREATININE CLEARANCE IN PREDICTING GLOMERULAR FILTRATION RATE. ESTIMATED GFR IS NOT APPLICABLE FOR DIALYSIS PATIENTS. POCT-GLUCOSE [id number] 17:31:00 Test Item Value Reference Range Comments POC-GLUCOSE METER (BEAKER) 165 mg/dL 70-[address] [facility] [address] [facility] (test cqpu=9099) [facility] [address] U/S, [id number] 16:00:00Reason for exam:->ascites SOBFINAL REPORT PROCEDURE: Ultrasound-guided paracentesis. INDICATION: Ascites. DESCRIPTION: This paracentesis was performed by Lesley Parnell under the direct supervision of Thomas Hendrix. After obtaining informed written consent, ultrasound scan of the abdomen identified ascites in the right lower quadrant. The overlying skin was prepped and draped in the usual, sterile fashion andlocal 2% lidocaine anesthesia was administered. A 5 [place]an catheter was advanced into the peritonealcavity and 6000 mL of clear yellow fluid was removed. The catheter was removed without immediate complication. Samples were sent for analysis. IMPRESSION: Uncomplicated ultrasound-guided paracentesis with 6000 mL fluid removed. Signed: Thomas Hendrix [facility] Verified Date/Time: 16:00:46 Reading Location: [address] Ultrasound Reading Room BODY FLUID CELL COUNT WITH [id number] 15:52:00 Test Item Value Reference Range Comments APPEARANCE FLUID (BEAKER) (test emgm=714) Clear Clear COLOR FLUID (BEAKER) (test xndu=344) Yellow Colorless, Straw RBC FLUID (BEAKER) (test gdcw=531) 10 /cu mm <=1 ADJUSTED WBC FLUID (BEAKER) (test ifds=0892) 80 /cu mm <=5 LINING CELLS (BEAKER) (test bkrb=5100) 0 /cu mm <=1 NEUTROPHILS FLUID (BEAKER) (test izps=6607) 5 % LYMPHS FLUID (BEAKER) (test mebg=520) 35 % MONO/MACROPHAGE FLUID (BEAKER) (test rwem=825) 59 % EOSINOPHILS FLUID (BEAKER) (test tqdo=181) 1 % BASO FLUID (BEAKER) (test xiol=065) 0 % CONTAINER BODY FLUID (BEAKER) (test gxcl=4379) EDTA Tube BASIC METABOLIC [id number] 07:28:00 Test Item Value Reference Range Comments SODIUM (BEAKER) (test 134 meq/L 136-145 nvug=298) POTASSIUM (BEAKER) (test 5.0 meq/L 3.5-5.1 gzgv=265) CHLORIDE (BEAKER) (test 107 meq/L 98-107 szke=282) CO2 (BEAKER) (test 22 meq/L 22-29 jxmh=184) BLOOD UREA NITROGEN 46 mg/dL 7-21 (BEAKER) (test eybb=996) CREATININE (BEAKER) (test 1.61 mg/dL 0.57-1.25 hcsc=340) GLUCOSE RANDOM (BEAKER) 220 mg/dL 70-105 (test yacd=347) CALCIUM (BEAKER) (test 9.0 mg/dL 8.4-10.2 auir=549) EGFR (BEAKER) (test 33 mL/min/1.73 sq m ESTIMATED GFR IS NOT psit=9251) ACCURATE CREATININE CLEARANCE IN PREDICTING GLOMERULAR FILTRATION RATE. ESTIMATED GFR IS NOT APPLICABLE FOR DIALYSIS PATIENTS. HEPATIC FUNCTION [id number] 07:28:00 Test Item Value Reference Range Comments TOTAL PROTEIN (BEAKER) (test elqj=338) 5.9 gm/dL 6.0-8.3 ALBUMIN (BEAKER) (test nelp=4490) 3.0 g/dL 3.5-5.0 BILIRUBIN TOTAL (BEAKER) (test rxaz=140) 0.6 mg/dL 0.2-1.2 BILIRUBIN DIRECT (BEAKER) (test dnxw=200) 0.3 mg/dL 0.1-0.5 ALKALINE PHOSPHATASE (BEAKER) (test lipy=701) 154 U/L 40-150 AST (SGOT) (BEAKER) (test cfyl=740) 22 U/L 5-34 ALT (SGPT) (BEAKER) (test iovu=873) 12 U/L 6-55 [id number] 07:27:00 Test Item Value Reference Range Comments MAGNESIUM (BEAKER) (test slco=846) 2.2 mg/dL 1.6-2.6 CBC W/PLT COUNT & AUTO [id number] 07:06:00 Test Item Value Reference Range Comments WHITE BLOOD CELL COUNT (BEAKER) (test cgzs=866) 6.2 K/ L 3.5-10.5 RED BLOOD CELL COUNT (BEAKER) (test ufuw=249) 3.62 M/ L 3.93-5.22 HEMOGLOBIN (BEAKER) (test fhww=884) 9.8 GM/DL 11.2-15.7 HEMATOCRIT (BEAKER) (test wzol=900) 31.4 % 34.1-44.9 MEAN CORPUSCULAR VOLUME (BEAKER) (test zcqq=005) 86.7 fL 79.4-94.8 MEAN CORPUSCULAR HEMOGLOBIN (BEAKER) (test 27.1 pg 25.6-32.2 yjts=722) MEAN CORPUSCULAR HEMOGLOBIN CONC (BEAKER) (test 31.2 GM/DL 32.2-35.5 pxgu=879) RED CELL DISTRIBUTION WIDTH (BEAKER) (test 14.5 % 11.7-14.4 kkbq=425) PLATELET COUNT (BEAKER) (test wmvm=425) 198 K/CU MM 150-450 MEAN PLATELET VOLUME (BEAKER) (test bggn=218) 9.8 fL 9.4-12.3 NUCLEATED RED BLOOD CELLS (BEAKER) (test 0 /100 WBC 0-0 ufvw=412) NEUTROPHILS RELATIVE PERCENT (BEAKER) (test 64 % weze=766) LYMPHOCYTES RELATIVE PERCENT (BEAKER) (test 22 % hyzl=435) MONOCYTES RELATIVE PERCENT (BEAKER) (test 9 % rnbt=245) EOSINOPHILS RELATIVE PERCENT (BEAKER) (test 5 % swsn=784) BASOPHILS RELATIVE PERCENT (BEAKER) (test 1 % htnm=973) NEUTROPHILS ABSOLUTE COUNT (BEAKER) (test 3.93 K/ L 1.56-6.13 squj=438) LYMPHOCYTES ABSOLUTE COUNT (BEAKER) (test 1.35 K/ L 1.18-3.74 tnpk=971) MONOCYTES ABSOLUTE COUNT (BEAKER) (test 0.53 K/ L 0.24-0.36 rzdx=604) EOSINOPHILS ABSOLUTE COUNT (BEAKER) (test 0.28 K/ L 0.04-0.36 ymnh=941) BASOPHILS ABSOLUTE COUNT (BEAKER) (test 0.05 K/ L 0.01-0.08 wvmx=677) IMMATURE GRANULOCYTES-RELATIVE PERCENT (BEAKER) 1 % 0-1 (test ixup=5512) [id number] 06:49:00 Test Item Value Reference Range Comments PROTIME (BEAKER) (test tepp=905) 13.4 seconds 11.7-14.7 INR (BEAKER) (test umqj=369) 1.0 <=5.9 PARTIAL THROMBOPLASTIN TIME (BEAKER) (test 30.9 seconds 22.5-36.0 ljfp=705) RECOMMENDED COUMADIN/WARFARIN INR THERAPY RANGESSTANDARD DOSE: 2.0 - 3.0 Includes: PROPHYLAXIS forvenous thrombosis, systemic embolization; TREATMENT for venous thrombosis and/or pulmonary embolus.HIGH RISK: Target INR is 2.5-3.5 for patients with mechanical heart valves.URINALYSIS W/ REFLEX URINE [id number] 05:32:00 Test Item Value Reference Range Comments COLOR (BEAKER) (test dccr=646) Yellow CLARITY (BEAKER) (test jdhq=826) Hazy SPECIFIC GRAVITY UA (BEAKER) (test pjjc=241) 1.021 1.001-1.035 PH UA (BEAKER) (test ewqo=093) 5.5 5.0-8.0 PROTEIN UA (BEAKER) (test zwpv=234) 30 mg/dL Negative GLUCOSE UA (BEAKER) (test orjf=756) Negative Negative KETONES UA (BEAKER) (test imch=391) Negative Negative BILIRUBIN UA (BEAKER) (test lvlc=228) Negative Negative BLOOD UA (BEAKER) (test fyzy=872) Negative Negative NITRITE UA (BEAKER) (test khyo=238) Negative Negative LEUKOCYTE ESTERASE UA (BEAKER) (test ggzz=166) Large Negative UROBILINOGEN UA (BEAKER) (test cmvp=786) 2.0 mg/dL 0.2-1.0 RBC UA (BEAKER) (test fapr=327) 7 /HPF WBC UA (BEAKER) (test ptzz=807) 7 /HPF MUCUS (BEAKER) (test hkxs=6571) Rare SQUAMOUS EPITHELIAL (BEAKER) (test nkyv=388) 6 /HPF HYALINE CASTS (BEAKER) (test hzum=521) 40 /LPF SOURCE(BEAKER) (test zcgj=7385) POCT-GLUCOSE [id number] 05:00:00 Test Item Value Reference Range Comments POC-GLUCOSE METER (BEAKER) 227 mg/dL 70-[address] [facility] [address] [facility] (test ocos=4181) [facility] [address] ALPHA FETOPROTEIN (AFP), TUMOR [id number] 15:55:00 Test Item Value Reference Range Comments ALPHA-FETOPROTEIN (BEAKER) (test tagv=6505) 3.4 ng/mL <10.0 BASIC METABOLIC [id number] 15:40:00 Test Item Value Reference Range Comments SODIUM (BEAKER) (test 133 meq/L 136-145 eedf=560) POTASSIUM (BEAKER) (test 4.8 meq/L 3.5-5.1 kefy=324) CHLORIDE (BEAKER) (test 101 meq/L 98-107 hevm=723) CO2 (BEAKER) (test 23 meq/L 22-29 vqqb=922) BLOOD UREA NITROGEN 37 mg/dL 7-21 (BEAKER) (test wezv=820) CREATININE (BEAKER) (test 2.17 mg/dL 0.57-1.25 vttd=269) GLUCOSE RANDOM (BEAKER) 191 mg/dL 70-105 (test pumc=666) CALCIUM (BEAKER) (test 9.2 mg/dL 8.4-10.2 wnka=846) EGFR (BEAKER) (test 23 mL/min/1.73 sq m ESTIMATED GFR IS NOT dqpy=8243) ACCURATE CREATININE CLEARANCE IN PREDICTING GLOMERULAR FILTRATION RATE. ESTIMATED GFR IS NOT APPLICABLE FOR DIALYSIS PATIENTS. HEPATIC FUNCTION [id number] 15:38:00 Test Item Value Reference Range Comments TOTAL PROTEIN (BEAKER) (test zhvq=699) 6.9 gm/dL 6.0-8.3 ALBUMIN (BEAKER) (test ffmk=4442) 3.7 g/dL 3.5-5.0 BILIRUBIN TOTAL (BEAKER) (test qqka=335) 0.8 mg/dL 0.2-1.2 BILIRUBIN DIRECT (BEAKER) (test ebbk=314) 0.3 mg/dL 0.1-0.5 ALKALINE PHOSPHATASE (BEAKER) (test gvdv=783) 95 U/L 40-150 AST (SGOT) (BEAKER) (test giih=152) 24 U/L 5-34 ALT (SGPT) (BEAKER) (test fdjp=402) 14 U/L 6-55 PROTHROMBIN [id number] 15:29:00 Test Item Value Reference Range Comments PROTIME (BEAKER) (test scug=394) 12.8 seconds 11.7-14.7 INR (BEAKER) (test lmlx=340) 1.0 <=5.9 RECOMMENDED COUMADIN/WARFARIN INR THERAPY RANGESSTANDARD DOSE: 2.0 - 3.0 Includes: PROPHYLAXIS forvenous thrombosis, systemic embolization; TREATMENT for venous thrombosis and/or pulmonary embolus.HIGH RISK: Target INR is 2.5-3.5 for patients with mechanical heart valves.CBC W/PLT COUNT & AUTO [id number] 15:17:00 Test Item Value Reference Range Comments WHITE BLOOD CELL COUNT (BEAKER) (test tscy=045) 7.8 K/ L 3.5-10.5 RED BLOOD CELL COUNT (BEAKER) (test xtkw=041) 4.49 M/ L 3.93-5.22 HEMOGLOBIN (BEAKER) (test wxwa=685) 12.4 GM/DL 11.2-15.7 HEMATOCRIT (BEAKER) (test qgxa=937) 39.1 % 34.1-44.9 MEAN CORPUSCULAR VOLUME (BEAKER) (test prox=656) 87.1 fL 79.4-94.8 MEAN CORPUSCULAR HEMOGLOBIN (BEAKER) (test 27.6 pg 25.6-32.2 bhpx=981) MEAN CORPUSCULAR HEMOGLOBIN CONC (BEAKER) (test 31.7 GM/DL 32.2-35.5 ujve=857) RED CELL DISTRIBUTION WIDTH (BEAKER) (test 14.0 % 11.7-14.4 wsgt=743) PLATELET COUNT (BEAKER) (test hurj=789) 196 K/CU MM 150-450 MEAN PLATELET VOLUME (BEAKER) (test rens=656) 9.9 fL 9.4-12.3 NUCLEATED RED BLOOD CELLS (BEAKER) (test 0 /100 WBC 0-0 bxhx=481) NEUTROPHILS RELATIVE PERCENT (BEAKER) (test 72 % qezr=928) LYMPHOCYTES RELATIVE PERCENT (BEAKER) (test 18 % jdlv=180) MONOCYTES RELATIVE PERCENT (BEAKER) (test 6 % otfo=627) EOSINOPHILS RELATIVE PERCENT (BEAKER) (test 4 % etcu=600) BASOPHILS RELATIVE PERCENT (BEAKER) (test 1 % kzpv=107) NEUTROPHILS ABSOLUTE COUNT (BEAKER) (test 5.62 K/ L 1.56-6.13 zdel=875) LYMPHOCYTES ABSOLUTE COUNT (BEAKER) (test 1.37 K/ L 1.18-3.74 lykd=758) MONOCYTES ABSOLUTE COUNT (BEAKER) (test 0.43 K/ L 0.24-0.36 ntty=608) EOSINOPHILS ABSOLUTE COUNT (BEAKER) (test 0.28 K/ L 0.04-0.36 jism=241) BASOPHILS ABSOLUTE COUNT (BEAKER) (test 0.07 K/ L 0.01-0.08 hueb=591) IMMATURE GRANULOCYTES-RELATIVE PERCENT (BEAKER) 0 % 0-1 (test jukt=2513) ANTI-MITOCHONDRIAL AB, REFLEX TO [id number] 08:36:00 Test Item Value Reference Range Comments SCAN RESULT (test kbfn=[id number]) OSMOLALITY, [id number] 10:30:00 Test Item Value Reference Range Comments OSMOLALITY, SERUM (BEAKER) (test ezck=157) 301 mOsm/kg 275-295 POCT-GLUCOSE [id number] 08:26:00 Test Item Value Reference Range Comments POC-GLUCOSE METER (BEAKER) 243 mg/dL 70-110 TESTED AT [address] (test idwp=4256) [facility] [id number] COMPREHENSIVE METABOLIC [id number] 08:05:00 Test Item Value Reference Range Comments TOTAL PROTEIN (BEAKER) 5.5 gm/dL 6.0-8.3 (test udsu=103) ALBUMIN (BEAKER) (test 3.2 g/dL 3.5-5.0 slck=7181) ALKALINE PHOSPHATASE 75 U/L 40-150 (BEAKER) (test usqc=932) BILIRUBIN TOTAL (BEAKER) 0.9 mg/dL 0.2-1.2 (test jwhk=794) SODIUM (BEAKER) (test 132 meq/L 136-145 yorp=922) POTASSIUM (BEAKER) (test 4.3 meq/L 3.5-5.1 lphv=974) CHLORIDE (BEAKER) (test 101 meq/L 98-107 hjwe=530) CO2 (BEAKER) (test 25 meq/L 22-29 oejg=298) BLOOD UREA NITROGEN 45 mg/dL 7-21 (BEAKER) (test mdft=077) CREATININE (BEAKER) (test 1.89 mg/dL 0.57-1.25 eikt=878) GLUCOSE RANDOM (BEAKER) 241 mg/dL 70-105 (test cyzq=751) CALCIUM (BEAKER) (test 8.6 mg/dL 8.4-10.2 amcf=145) AST (SGOT) (BEAKER) (test 19 U/L 5-34 qraw=823) ALT (SGPT) (BEAKER) (test 10 U/L 6-55 fbov=810) EGFR (BEAKER) (test 27 mL/min/1.73 sq m ESTIMATED GFR IS NOT dylg=6815) ACCURATE CREATININE CLEARANCE IN PREDICTING GLOMERULAR FILTRATION RATE. ESTIMATED GFR IS NOT APPLICABLE FOR DIALYSIS PATIENTS. [id number] 08:02:00 Test Item Value Reference Range Comments PHOSPHORUS (BEAKER) (test tmjs=345) 3.6 mg/dL 2.3-4.7 [id number] 08:02:00 Test Item Value Reference Range Comments MAGNESIUM (BEAKER) (test mejb=231) 2.0 mg/dL 1.6-2.6 CBC W/PLT COUNT & AUTO [id number] 05:40:00 Test Item Value Reference Range Comments WHITE BLOOD CELL COUNT (BEAKER) (test ktqd=832) 5.7 K/ L 3.5-10.5 RED BLOOD CELL COUNT (BEAKER) (test nmvq=109) 3.76 M/ L 3.93-5.22 HEMOGLOBIN (BEAKER) (test pxtf=793) 10.6 GM/DL 11.2-15.7 HEMATOCRIT (BEAKER) (test ydvv=414) 32.9 % 34.1-44.9 MEAN CORPUSCULAR VOLUME (BEAKER) (test lscn=651) 87.5 fL 79.4-94.8 MEAN CORPUSCULAR HEMOGLOBIN (BEAKER) (test 28.2 pg 25.6-32.2 xukh=631) MEAN CORPUSCULAR HEMOGLOBIN CONC (BEAKER) (test 32.2 GM/DL 32.2-35.5 vghb=086) RED CELL DISTRIBUTION WIDTH (BEAKER) (test 14.2 % 11.7-14.4 fhzf=276) PLATELET COUNT (BEAKER) (test qgki=570) 142 K/CU MM 150-450 MEAN PLATELET VOLUME (BEAKER) (test fank=252) 9.8 fL 9.4-12.3 NUCLEATED RED BLOOD CELLS (BEAKER) (test 0 /100 WBC 0-0 lbzz=556) NEUTROPHILS RELATIVE PERCENT (BEAKER) (test 70 % icer=955) LYMPHOCYTES RELATIVE PERCENT (BEAKER) (test 19 % skxq=183) MONOCYTES RELATIVE PERCENT (BEAKER) (test 7 % vrke=940) EOSINOPHILS RELATIVE PERCENT (BEAKER) (test 3 % wdme=178) BASOPHILS RELATIVE PERCENT (BEAKER) (test 1 % htdj=416) NEUTROPHILS ABSOLUTE COUNT (BEAKER) (test 3.99 K/ L 1.56-6.13 cbde=181) LYMPHOCYTES ABSOLUTE COUNT (BEAKER) (test 1.05 K/ L 1.18-3.74 luba=664) MONOCYTES ABSOLUTE COUNT (BEAKER) (test 0.40 K/ L 0.24-0.36 dmmb=534) EOSINOPHILS ABSOLUTE COUNT (BEAKER) (test 0.16 K/ L 0.04-0.36 vnpo=595) BASOPHILS ABSOLUTE COUNT (BEAKER) (test 0.04 K/ L 0.01-0.08 bkfn=482) IMMATURE GRANULOCYTES-RELATIVE PERCENT (BEAKER) 0 % 0-1 (test szdp=7478) CALCIUM, [id number] 05:17:00 Test Item Value Reference Range Comments CALCIUM IONIZED (BEAKER) (test udjt=244) 1.06 mmol/L 1.12-1.27 PH, BLOOD (BEAKER) (test ksvn=1892) 7.41 U/S, RENAL, [id number] 03:59:00Reason for exam:->HEMALATHA/CKDShould this be performed at [...] Wilson Verified Date/Time: 11/24/2018 03:59:04 Reading Location: [address] Transitional Reading Room TROPONIN [id number] 23:19:00 Test Item Value Reference Range Comments TROPONIN I (BEAKER) (test jhrx=374) < ng/mL 0.00-0.03 Troponin I (TnI) levels [...] acidosis, acute neurological disease, and persistent tachyarrhythmia.POCT-GLUCOSE [id number] 21:12:00 Test Item Value Reference Range Comments POC-GLUCOSE METER (BEAKER) 277 mg/dL 70-110 TESTED AT [address] (test jbpp=8410) [facility] [address] PROTEIN, RANDOM [id number] 20:11:00 Test Item Value Reference Range Comments PROTEIN, URINE (BEAKER) (test cuxo=0066) 10 mg/dL 0-14 SODIUM, RANDOM [id number] 20:05:00 Test Item Value Reference Range Comments SODIUM URINE (BEAKER) (test jtwg=652) < meq/L Reference Range: No NormalsPOCT-GLUCOSE [id number] 17:28:00 Test Item Value Reference Range Comments POC-GLUCOSE METER (BEAKER) 291 mg/dL 70-110 TESTED AT [address] (test zfxo=9317) [facility] [address] POCT-GLUCOSE [id number] 14:02:00 Test Item Value Reference Range Comments POC-GLUCOSE METER (BEAKER) 148 mg/dL 70-[address] [facility] [address] [facility] (test oilb=6800) [facility] [address] URINALYSIS W/ [id number] 13:32:00 Test Item Value Reference Range Comments COLOR (BEAKER) (test nhhw=455) Yellow CLARITY (BEAKER) (test nuwl=600) Clear SPECIFIC GRAVITY UA (BEAKER) (test 1.015 1.001-1.035 bsar=260) PH UA (BEAKER) (test cvlc=147) 5.0 5.0-8.0 PROTEIN UA (BEAKER) (test uaep=760) Negative Negative GLUCOSE UA (BEAKER) (test siib=880) Negative Negative KETONES UA (BEAKER) (test lgqw=835) Negative Negative BILIRUBIN UA (BEAKER) (test lwvc=032) Negative Negative BLOOD UA (BEAKER) (test pppj=980) Negative Negative NITRITE UA (BEAKER) (test kcpk=988) Negative Negative LEUKOCYTE ESTERASE UA (BEAKER) (test Negative Negative gtrg=876) UROBILINOGEN UA (BEAKER) (test rwar=869) 0.2 mg/dL 0.2-1.0 RBC UA (BEAKER) (test zbfn=178) < /HPF WBC UA (BEAKER) (test yjqe=964) 2 /HPF BACTERIA (BEAKER) (test bcpe=449) Occasional SQUAMOUS EPITHELIAL (BEAKER) (test 19 /HPF fidf=286) HYALINE CASTS (BEAKER) (test oibe=270) 5 /LPF AMORPHOUS CRYSTALS (BEAKER) (test Occasional jyzv=9805) SOURCE(BEAKER) (test sjnn=2969) Urine, Clean Catch U/S, ABDOMINAL, [id number] 13:29:00Abdomen limited area? Add comment if clarification [...] Valles Verified Date/Time: 11/23/2018 13:29:13 Reading Location: [address] Transitional Reading Room U/S, [id number] 13:01:00Reason for exam:->Therapeutic paracentesisFINAL REPORT Paracentesis dated 11/23/2018 Procedure: Ultrasound-guided paracentesis. Preprocedure diagnosis: Ascites Postprocedure diagnosis: Ascites Conscious sedation: None. Radiologist: Giovanni Haas M.D. Car Salter: None Anesthesia: 1% Xylocaine mixed with sodium bicarbonate local anesthesia. Technique: After obtaining informed consent, ultrasound-guided paracentesis was performed under usual sterile technique. Using a 5 [place] drainage catheter , puncture was made in the right lower quadrant abdomen. Approximately 16,200 cc of serous fluid was removed. Patient tolerated the procedure well without complication. Complication: None Graft/Implant: None Estimated Blood Loss: None Impression: Ultrasound-guided paracentesis. Signed: Giovanni Haas Verified Date/Time: 11/23/2018 13:01:25 Reading Location: [facility] [id number] Ortho Consult Reading Room Electronically signedby: GIOVANNI HAAS M.D. on 2018 01:01 PMCBC W/PLT COUNT & AUTO [id number] 08:55:00 Test Item Value Reference Range Comments WHITE BLOOD CELL COUNT (BEAKER) (test zkbq=488) 5.7 K/ L 3.5-10.5 RED BLOOD CELL COUNT (BEAKER) (test pybp=941) 3.72 M/ L 3.93-5.22 HEMOGLOBIN (BEAKER) (test xtns=462) 10.5 GM/DL 11.2-15.7 HEMATOCRIT (BEAKER) (test uxyp=461) 32.5 % 34.1-44.9 MEAN CORPUSCULAR VOLUME (BEAKER) (test rhai=795) 87.4 fL 79.4-94.8 MEAN CORPUSCULAR HEMOGLOBIN (BEAKER) (test 28.2 pg 25.6-32.2 kjkz=556) MEAN CORPUSCULAR HEMOGLOBIN CONC (BEAKER) (test 32.3 GM/DL 32.2-35.5 jhfn=647) RED CELL DISTRIBUTION WIDTH (BEAKER) (test 14.5 % 11.7-14.4 ilyx=192) PLATELET COUNT (BEAKER) (test uthd=605) 148 K/CU MM 150-450 MEAN PLATELET VOLUME (BEAKER) (test fuob=276) 9.4 fL 9.4-12.3 NUCLEATED RED BLOOD CELLS (BEAKER) (test 0 /100 WBC 0-0 hrjk=245) NEUTROPHILS RELATIVE PERCENT (BEAKER) (test 63 % nzaj=844) LYMPHOCYTES RELATIVE PERCENT (BEAKER) (test 23 % lvni=559) MONOCYTES RELATIVE PERCENT (BEAKER) (test 8 % oevw=270) EOSINOPHILS RELATIVE PERCENT (BEAKER) (test 5 % vtyp=524) BASOPHILS RELATIVE PERCENT (BEAKER) (test 1 % cmpd=929) NEUTROPHILS ABSOLUTE COUNT (BEAKER) (test 3.61 K/ L 1.56-6.13 gfhg=074) LYMPHOCYTES ABSOLUTE COUNT (BEAKER) (test 1.29 K/ L 1.18-3.74 heyd=029) MONOCYTES ABSOLUTE COUNT (BEAKER) (test 0.47 K/ L 0.24-0.36 gbui=834) EOSINOPHILS ABSOLUTE COUNT (BEAKER) (test 0.28 K/ L 0.04-0.36 vptp=653) BASOPHILS ABSOLUTE COUNT (BEAKER) (test 0.05 K/ L 0.01-0.08 uvch=974) IMMATURE GRANULOCYTES-RELATIVE PERCENT (BEAKER) 0 % 0-1 (test zxaa=3657) POCT-GLUCOSE [id number] 07:43:00 Test Item Value Reference Range Comments POC-GLUCOSE METER (BEAKER) 196 mg/dL 70-[address] [facility] [address] [facility] (test ahyz=8873) [facility] [address] [id number] 06:53:00 Test Item Value Reference Range Comments FERRITIN (BEAKER) (test glzo=177) 52 ng/mL 5-275 HEPATITIS B [id number] 06:21:00 Test Item Value Reference Range Comments HEPATITIS B CORE TOTAL ANTIBODY (BEAKER) (test Nonreactive Nonreactive rzzv=576) HEPATITIS B SURFACE ANTIBODY (BEAKER) (test < mIU/mL <8.0 klut=506) HEPATITIS B SURFACE ANTIGEN (2) (BEAKER) (test Nonreactive Nonreactive doeu=4144) HEPATITIS C [id number] 06:20:00 Test Item Value Reference Range Comments HEPATITIS C ANTIBODY (BEAKER) (test pikt=642) Nonreactive Nonreactive HEPATITIS A [id number] 06:20:00 Test Item Value Reference Range Comments HEPATITIS A IGM ANTIBODY (BEAKER) (test Nonreactive Nonreactive dqcc=974) HEPATITIS A IGG ANTIBODY (BEAKER) (test Nonreactive Nonreactive ohiz=2705) ALPHA FETOPROTEIN (AFP), TUMOR [id number] 06:14:00 Test Item Value Reference Range Comments ALPHA-FETOPROTEIN (BEAKER) (test hicq=2167) 2.1 ng/mL <10.0 COMPREHENSIVE METABOLIC [id number] 06:01:00 Test Item Value Reference Range Comments TOTAL PROTEIN (BEAKER) 5.9 gm/dL 6.0-8.3 (test upvt=727) ALBUMIN (BEAKER) (test 2.9 g/dL 3.5-5.0 xuxv=7264) ALKALINE PHOSPHATASE 96 U/L 40-150 (BEAKER) (test qdsy=212) BILIRUBIN TOTAL (BEAKER) 0.5 mg/dL 0.2-1.2 (test nvxn=254) SODIUM (BEAKER) (test 132 meq/L 136-145 ipqd=965) POTASSIUM (BEAKER) (test 4.3 meq/L 3.5-5.1 fniq=063) CHLORIDE (BEAKER) (test 100 meq/L 98-107 bdpy=594) CO2 (BEAKER) (test 26 meq/L 22-29 tmzi=899) BLOOD UREA NITROGEN 50 mg/dL 7-21 (BEAKER) (test jmnz=262) CREATININE (BEAKER) (test 2.27 mg/dL 0.57-1.25 vgbk=720) GLUCOSE RANDOM (BEAKER) 219 mg/dL 70-105 (test aawl=233) CALCIUM (BEAKER) (test 8.8 mg/dL 8.4-10.2 ktao=987) AST (SGOT) (BEAKER) (test 22 U/L 5-34 zbok=652) ALT (SGPT) (BEAKER) (test 15 U/L 6-55 inoc=484) EGFR (BEAKER) (test 22 mL/min/1.73 sq m ESTIMATED GFR IS NOT heox=4648) ACCURATE CREATININE CLEARANCE IN PREDICTING GLOMERULAR FILTRATION RATE. ESTIMATED GFR IS NOT APPLICABLE FOR DIALYSIS PATIENTS. IRON, TIBC, % SAT. (WITHOUT FERRITIN)2018-11-23 05:55:00 Test Item Value Reference Range Comments IRON (BEAKER) (test cmyu=029) 46.0 ug/dL 40.0-160.0 TOTAL IRON BINDING CAPACITY (BEAKER) (test 269 ug/dL 250-450 jlfi=021) IRON % SATURATION (2) (BEAKER) (test jqei=0597) 17 % 20-55 [id number] 05:54:00 Test Item Value Reference Range Comments ALPHA-1 ANTITRYPSIN (BEAKER) (test kahy=860) 202.70 mg/dL 90.00-200.00 COMPREHENSIVE METABOLIC [id number] 00:16:00 Test Item Value Reference Range Comments TOTAL PROTEIN (BEAKER) 6.8 gm/dL 6.0-8.3 (test okoj=505) ALBUMIN (BEAKER) (test 3.3 g/dL 3.5-5.0 wtev=8695) ALKALINE PHOSPHATASE 114 U/L 40-150 (BEAKER) (test natb=242) BILIRUBIN TOTAL (BEAKER) 0.6 mg/dL 0.2-1.2 (test fbzj=850) SODIUM (BEAKER) (test 130 meq/L 136-145 bzzf=817) POTASSIUM (BEAKER) (test 4.4 meq/L 3.5-5.1 kwqn=947) CHLORIDE (BEAKER) (test 99 meq/L 98-107 veyn=543) CO2 (BEAKER) (test 22 meq/L 22-29 tcbk=491) BLOOD UREA NITROGEN 46 mg/dL 7-21 (BEAKER) (test ajhs=304) CREATININE (BEAKER) (test 2.40 mg/dL 0.57-1.25 ydcs=941) GLUCOSE RANDOM (BEAKER) 153 mg/dL 70-105 (test cpho=165) CALCIUM (BEAKER) (test 9.1 mg/dL 8.4-10.2 azum=613) AST (SGOT) (BEAKER) (test 25 U/L 5-34 vhdz=292) ALT (SGPT) (BEAKER) (test 17 U/L 6-55 nwda=541) EGFR (BEAKER) (test 21 mL/min/1.73 sq m ESTIMATED GFR IS NOT xoda=2999) ACCURATE CREATININE CLEARANCE IN PREDICTING GLOMERULAR FILTRATION RATE. ESTIMATED GFR IS NOT APPLICABLE FOR DIALYSIS PATIENTS. [id number] 23:52:00 Test Item Value Reference Range Comments PROTIME (BEAKER) (test zutu=435) 13.3 seconds 11.7-14.7 INR (BEAKER) (test ssed=162) 1.0 <=5.9 PARTIAL THROMBOPLASTIN TIME (BEAKER) (test 26.9 seconds 22.5-36.0 blzb=964) RECOMMENDED COUMADIN/WARFARIN INR THERAPY RANGESSTANDARD DOSE: 2.0 - 3.0 Includes: PROPHYLAXIS forvenous thrombosis, systemic embolization; TREATMENT for venous thrombosis and/or pulmonary embolus.HIGH RISK: Target INR is 2.5-3.5 for patients with mechanical heart valves.POCT-GLUCOSE [id number] 21:25:00 Test Item Value Reference Range Comments POC-GLUCOSE METER (BEAKER) 178 mg/dL 70-[address] [facility] [address] [facility] (test noea=5073) [facility] [address]
== END ==
LOC: DS 07:14
PROVIDERS: ATTEND Internal Medicine Hepatology
DX: R18.8 Other ascites (principal)
CPT/HCPCS: 36415; 49083; 82565; 89050

== ENCOUNTER → 2019-09-17 | Day surgery (SDC) | payer OTHER ==
--- OUTSIDE RECORDS SUMMARY | 2019-09-17 07:58 | XMS REPORT ---
:1960 [facility] Address [address] [place] [address] Dr. Melton [address] [place] [id number] Care Team Providers Name Role Phone DANIEL [...] Reference Range Comments TOTAL PROTEIN (BEAKER) (test drig=360) 6.5 gm/dL 6.0-8.3 ALBUMIN (BEAKER) (test fzrl=3644) 3.0 g/dL 3.5-5.0 BILIRUBIN TOTAL (BEAKER) (test bace=121) 1.5 mg/dL 0.2-1.2 BILIRUBIN DIRECT (BEAKER) (test agtp=025) 0.7 mg/dL 0.1-0.5 ALKALINE PHOSPHATASE (BEAKER) (test wzzg=802) 120 U/L 40-150 AST (SGOT) (BEAKER) (test lwkd=422) 34 U/L 5-34 ALT (SGPT) (BEAKER) (test ywrp=853) 21 U/L 6-55 BASIC METABOLIC [id number] 15:39:00 Test Item Value Reference Range Comments SODIUM (BEAKER) (test 135 meq/L 136-145 ozhq=226) POTASSIUM (BEAKER) (test 3.8 meq/L 3.5-5.1 hgck=333) CHLORIDE (BEAKER) (test 99 meq/L 98-107 efbd=452) CO2 (BEAKER) (test 31 meq/L 22-29 mlxn=572) BLOOD UREA NITROGEN 21 mg/dL 7-21 (BEAKER) (test swjv=704) CREATININE (BEAKER) (test 1.70 mg/dL 0.57-1.25 syed=064) GLUCOSE RANDOM (BEAKER) 290 mg/dL 70-105 (test pabc=105) CALCIUM (BEAKER) (test 8.4 mg/dL 8.4-10.2 rawh=334) EGFR (BEAKER) (test 31 mL/min/1.73 sq m ESTIMATED GFR IS NOT zlzo=6845) ACCURATE CREATININE CLEARANCE IN PREDICTING GLOMERULAR FILTRATION RATE. ESTIMATED GFR IS NOT APPLICABLE FOR DIALYSIS PATIENTS. PROTHROMBIN [id number] 15:39:00 Test Item Value Reference Range Comments PROTIME (BEAKER) (test duyh=216) 14.2 seconds 11.9-14.2 INR (BEAKER) (test swjx=030) 1.2 <=5.9 Effective 04/01/2019: PT Reference Range ChangeNew: 11.9-14.2 Previous: 11.7- 14.7RECOMMENDED COUMADIN/WARFARIN INR THERAPY RANGESSTANDARD DOSE: 2.0-3.0 Includes: PROPHYLAXIS for venous thrombosis, systemic embolization; TREATMENT for venous thrombosis and/or pulmonary embolus.HIGH RISK: Target INR is2.5-3.5 for patients wiht mechanical heart valves.CBC W/PLT COUNT & AUTO [id number] 15:25:00 Test Item Value Reference Range Comments WHITE BLOOD CELL COUNT (BEAKER) (test ocuq=407) 5.8 K/ L 3.5-10.5 RED BLOOD CELL COUNT (BEAKER) (test diqa=927) 3.30 M/ L 3.93-5.22 HEMOGLOBIN (BEAKER) (test dady=466) 8.9 GM/DL 11.2-15.7 HEMATOCRIT (BEAKER) (test zyfi=848) 28.2 % 34.1-44.9 MEAN CORPUSCULAR VOLUME (BEAKER) (test xwou=890) 85.5 fL 79.4-94.8 MEAN CORPUSCULAR HEMOGLOBIN (BEAKER) (test 27.0 pg 25.6-32.2 htni=253) MEAN CORPUSCULAR HEMOGLOBIN CONC (BEAKER) (test 31.6 GM/DL 32.2-35.5 ygyv=492) RED CELL DISTRIBUTION WIDTH (BEAKER) (test 16.6 % 11.7-14.4 haoc=802) PLATELET COUNT (BEAKER) (test ggjj=981) 185 K/CU MM 150-450 MEAN PLATELET VOLUME (BEAKER) (test rghv=668) 9.0 fL 9.4-12.3 NUCLEATED RED BLOOD CELLS (BEAKER) (test 0 /100 WBC 0-0 wdwp=825) NEUTROPHILS RELATIVE PERCENT (BEAKER) (test 50 % wars=803) LYMPHOCYTES RELATIVE PERCENT (BEAKER) (test 32 % lnan=967) MONOCYTES RELATIVE PERCENT (BEAKER) (test 7 % uqna=026) EOSINOPHILS RELATIVE PERCENT (BEAKER) (test 10 % ajua=977) BASOPHILS RELATIVE PERCENT (BEAKER) (test 2 % bleo=179) NEUTROPHILS ABSOLUTE COUNT (BEAKER) (test 2.88 K/ L 1.56-6.13 qmjr=658) LYMPHOCYTES ABSOLUTE COUNT (BEAKER) (test 1.86 K/ L 1.18-3.74 vkph=425) MONOCYTES ABSOLUTE COUNT (BEAKER) (test 0.38 K/ L 0.24-0.36 psyo=833) EOSINOPHILS ABSOLUTE COUNT (BEAKER) (test 0.55 K/ L 0.04-0.36 vtnr=950) BASOPHILS ABSOLUTE COUNT (BEAKER) (test 0.10 K/ L 0.01-0.08 rgeu=380) IMMATURE GRANULOCYTES-RELATIVE PERCENT (BEAKER) 0 % 0-1 (test jeio=9716) PROTHROMBIN [id number] 17:20:00 Test Item Value Reference Range Comments PROTIME (BEAKER) (test lpvq=469) 13.6 seconds 11.9-14.2 INR (BEAKER) (test dhya=459) 1.1 <=5.9 Effective 04/01/2019: PT Reference Range ChangeNew: 11.9-14.2 Previous: 11.7- 14.7RECOMMENDED COUMADIN/WARFARIN INR THERAPY RANGESSTANDARD DOSE: 2.0-3.0 Includes: PROPHYLAXIS for venous thrombosis, systemic embolization; TREATMENT for venous thrombosis and/or pulmonary embolus.HIGH RISK: Target INR is2.5-3.5 for patients wiht mechanical heart valves.HEPATIC FUNCTION [id number] 17:16 :00 Test Item Value Reference Range Comments TOTAL PROTEIN (BEAKER) (test hfnl=164) 6.7 gm/dL 6.0-8.3 ALBUMIN (BEAKER) (test qvfn=6858) 3.0 g/dL 3.5-5.0 BILIRUBIN TOTAL (BEAKER) (test itiy=301) 1.4 mg/dL 0.2-1.2 BILIRUBIN DIRECT (BEAKER) (test wlih=312) 0.7 mg/dL 0.1-0.5 ALKALINE PHOSPHATASE (BEAKER) (test qenh=095) 139 U/L 40-150 AST (SGOT) (BEAKER) (test gjbl=756) 32 U/L 5-34 ALT (SGPT) (BEAKER) (test izvz=492) 16 U/L 6-55 BASIC METABOLIC [id number] 17:16:00 Test Item Value Reference Range Comments SODIUM (BEAKER) (test 139 meq/L 136-145 ftfx=231) POTASSIUM (BEAKER) (test 3.6 meq/L 3.5-5.1 gpxc=960) CHLORIDE (BEAKER) (test 99 meq/L 98-107 spjr=811) CO2 (BEAKER) (test 32 meq/L 22-29 lggo=681) BLOOD UREA NITROGEN 26 mg/dL 7-21 (BEAKER) (test fftd=793) CREATININE (BEAKER) (test 1.68 mg/dL 0.57-1.25 fqsn=269) GLUCOSE RANDOM (BEAKER) 263 mg/dL 70-105 (test vfno=493) CALCIUM (BEAKER) (test 9.0 mg/dL 8.4-10.2 hxss=095) EGFR (BEAKER) (test 31 mL/min/1.73 sq m ESTIMATED GFR IS NOT vklj=4079) ACCURATE CREATININE CLEARANCE IN PREDICTING GLOMERULAR FILTRATION RATE. ESTIMATED GFR IS NOT APPLICABLE FOR DIALYSIS PATIENTS. CBC W/PLT COUNT & AUTO [id number] 17:01:00 Test Item Value Reference Range Comments WHITE BLOOD CELL COUNT (BEAKER) (test ckvt=957) 7.4 K/ L 3.5-10.5 RED BLOOD CELL COUNT (BEAKER) (test wvbp=673) 3.44 M/ L 3.93-5.22 HEMOGLOBIN (BEAKER) (test qafv=873) 9.6 GM/DL 11.2-15.7 HEMATOCRIT (BEAKER) (test arxz=687) 30.1 % 34.1-44.9 MEAN CORPUSCULAR VOLUME (BEAKER) (test iqtp=561) 87.5 fL 79.4-94.8 MEAN CORPUSCULAR HEMOGLOBIN (BEAKER) (test 27.9 pg 25.6-32.2 yikv=364) MEAN CORPUSCULAR HEMOGLOBIN CONC (BEAKER) (test 31.9 GM/DL 32.2-35.5 fobc=855) RED CELL DISTRIBUTION WIDTH (BEAKER) (test 16.0 % 11.7-14.4 anoe=069) PLATELET COUNT (BEAKER) (test buvz=319) 190 K/CU MM 150-450 MEAN PLATELET VOLUME (BEAKER) (test gkza=345) 9.3 fL 9.4-12.3 NUCLEATED RED BLOOD CELLS (BEAKER) (test 0 /100 WBC 0-0 sssk=337) NEUTROPHILS RELATIVE PERCENT (BEAKER) (test 65 % vjbs=167) LYMPHOCYTES RELATIVE PERCENT (BEAKER) (test 23 % ntgy=667) MONOCYTES RELATIVE PERCENT (BEAKER) (test 6 % svsu=500) EOSINOPHILS RELATIVE PERCENT (BEAKER) (test 5 % xudf=818) BASOPHILS RELATIVE PERCENT (BEAKER) (test 1 % tiyn=134) NEUTROPHILS ABSOLUTE COUNT (BEAKER) (test 4.83 K/ L 1.56-6.13 ikaj=080) LYMPHOCYTES ABSOLUTE COUNT (BEAKER) (test 1.67 K/ L 1.18-3.74 gfmb=568) MONOCYTES ABSOLUTE COUNT (BEAKER) (test 0.41 K/ L 0.24-0.36 jacu=790) EOSINOPHILS ABSOLUTE COUNT (BEAKER) (test 0.40 K/ L 0.04-0.36 exwi=230) BASOPHILS ABSOLUTE COUNT (BEAKER) (test 0.06 K/ L 0.01-0.08 zhtt=074) IMMATURE GRANULOCYTES-RELATIVE PERCENT (BEAKER) 0 % 0-1 (test xdlj=9622) POCT-GLUCOSE [id number] 13:48:00 Test Item Value Reference Range Comments POC-GLUCOSE METER (BEAKER) 203 mg/dL 70-110 TESTED AT [facility] [address] [facility] (test wzio=3585) [facility] [address] POCT-GLUCOSE [id number] 09:45:00 Test Item Value Reference Range Comments POC-GLUCOSE METER (BEAKER) 168 mg/dL 70-110 TESTED AT [facility] [address] [facility] (test fxcx=6342) [facility] [address] POCT-GLUCOSE [id number] 08:06:00 Test Item Value Reference Range Comments POC-GLUCOSE METER (BEAKER) 177 mg/dL 70-110 TESTED AT [address] (test urae=0760) [facility] [address] COMPREHENSIVE METABOLIC [id number] 06:11:00 Test Item Value Reference Range Comments TOTAL PROTEIN (BEAKER) 5.5 gm/dL 6.0-8.3 (test jbrh=371) ALBUMIN (BEAKER) (test 3.0 g/dL 3.5-5.0 tfoa=2634) ALKALINE PHOSPHATASE 117 U/L 40-150 (BEAKER) (test rapw=985) BILIRUBIN TOTAL (BEAKER) 1.2 mg/dL 0.2-1.2 (test ikqk=152) SODIUM (BEAKER) (test 138 meq/L 136-145 ymon=844) POTASSIUM (BEAKER) (test 4.1 meq/L 3.5-5.1 uprs=658) CHLORIDE (BEAKER) (test 102 meq/L 98-107 nshc=229) CO2 (BEAKER) (test 29 meq/L 22-29 ewfh=739) BLOOD UREA NITROGEN 23 mg/dL 7-21 (BEAKER) (test vnlo=370) CREATININE (BEAKER) (test 1.26 mg/dL 0.57-1.25 hufl=591) GLUCOSE RANDOM (BEAKER) 177 mg/dL 70-105 (test sdps=960) CALCIUM (BEAKER) (test 8.3 mg/dL 8.4-10.2 rgtc=732) AST (SGOT) (BEAKER) (test 26 U/L 5-34 dglv=789) ALT (SGPT) (BEAKER) (test 9 U/L 6-55 frmr=279) EGFR (BEAKER) (test 43 mL/min/1.73 sq m ESTIMATED GFR IS NOT xwyv=6081) ACCURATE CREATININE CLEARANCE IN PREDICTING GLOMERULAR FILTRATION RATE. ESTIMATED GFR IS NOT APPLICABLE FOR DIALYSIS PATIENTS. CBC (HEMOGRAM ONLY)2019-06-03 05:17:00 Test Item Value Reference Range Comments WHITE BLOOD CELL COUNT (BEAKER) (test nhtt=577) 6.0 K/ L 3.5-10.5 RED BLOOD CELL COUNT (BEAKER) (test xgzz=300) 2.95 M/ L 3.93-5.22 HEMOGLOBIN (BEAKER) (test zkit=201) 8.1 GM/DL 11.2-15.7 HEMATOCRIT (BEAKER) (test gevw=394) 26.3 % 34.1-44.9 MEAN CORPUSCULAR VOLUME (BEAKER) (test aabp=571) 89.2 fL 79.4-94.8 MEAN CORPUSCULAR HEMOGLOBIN (BEAKER) (test 27.5 pg 25.6-32.2 dgmq=878) MEAN CORPUSCULAR HEMOGLOBIN CONC (BEAKER) (test 30.8 GM/DL 32.2-35.5 vski=507) RED CELL DISTRIBUTION WIDTH (BEAKER) (test 17.3 % 11.7-14.4 jqyn=795) PLATELET COUNT (BEAKER) (test iuyj=415) 203 K/CU MM 150-450 MEAN PLATELET VOLUME (BEAKER) (test spbw=258) 9.2 fL 9.4-12.3 NUCLEATED RED BLOOD CELLS (BEAKER) (test 0 /100 WBC 0-0 perq=706) POCT-GLUCOSE [id number] 23:37:00 Test Item Value Reference Range Comments POC-GLUCOSE METER (BEAKER) 212 mg/dL 70-110 TESTED AT [place] [id number] (test lgnv=4039) [facility] [address] POCT-GLUCOSE [id number] 16:58:00 Test Item Value Reference Range Comments POC-GLUCOSE METER (BEAKER) 313 mg/dL 70-110 TESTED AT [address] (test ajxj=0605) [facility] [address] ANG, TIPSS [id number] 14:25:00Reason for exam:->still recurrent paracentesisFINAL REPORT Procedures:1. [...] the patient's medical record by the nurse. Associate Brand Manager: Akil Chung MD. Sausage Inspector: MD Ishaan (Fellow) Approach: 1. Right lower [...] skin and deep soft tissues. A 5 [place] [employer] one-step catheter wasinserted and removed from the [...] The needle was exchanged for a 4 [place] [employer] micropuncture sheath. The micropuncture sheath was exchanged over a 0.035 Bentson wire for a 5 [place] [employer] x 10 cm vascular sheath. The TIPS stent was then cannulated using a 5 [place] [employer] C2 catheter and 0.035 angled Glidewire. The [...] Verified Date/Time: 06/02/2019 14:25:34 Reading Location : [place] [address] Angio Body Reading Room POCT-GLUCOSE [id number] 11:52:00 Test Item Value Reference Range Comments POC-GLUCOSE METER (BEAKER) 159 mg/dL 70-110 TESTED AT [facility] [address] [facility] (test sxvw=5069) [facility] [address] [id number] 05:55:00 Test Item Value Reference Range Comments MAGNESIUM (BEAKER) (test pdxc=771) 1.6 mg/dL 1.6-2.6 COMPREHENSIVE METABOLIC [id number] 05:55:00 Test Item Value Reference Range Comments TOTAL PROTEIN (BEAKER) 5.7 gm/dL 6.0-8.3 (test kdus=691) ALBUMIN (BEAKER) (test 3.3 g/dL 3.5-5.0 iarm=5887) ALKALINE PHOSPHATASE 118 U/L 40-150 (BEAKER) (test oxkf=473) BILIRUBIN TOTAL (BEAKER) 1.4 mg/dL 0.2-1.2 (test qqam=401) SODIUM (BEAKER) (test 140 meq/L 136-145 lnkg=547) POTASSIUM (BEAKER) (test 3.3 meq/L 3.5-5.1 gwhb=897) CHLORIDE (BEAKER) (test 101 meq/L 98-107 bfhe=518) CO2 (BEAKER) (test 31 meq/L 22-29 vqgk=095) BLOOD UREA NITROGEN 23 mg/dL 7-21 (BEAKER) (test lbcs=138) CREATININE (BEAKER) (test 1.33 mg/dL 0.57-1.25 kelh=539) GLUCOSE RANDOM (BEAKER) 131 mg/dL 70-105 (test ytac=625) CALCIUM (BEAKER) (test 8.7 mg/dL 8.4-10.2 ybcs=671) AST (SGOT) (BEAKER) (test 27 U/L 5-34 cerr=673) ALT (SGPT) (BEAKER) (test 11 U/L 6-55 xksc=859) EGFR (BEAKER) (test 41 mL/min/1.73 sq m ESTIMATED GFR IS NOT cibd=1956) ACCURATE CREATININE CLEARANCE IN PREDICTING GLOMERULAR FILTRATION RATE. ESTIMATED GFR IS NOT APPLICABLE FOR DIALYSIS PATIENTS. CBC W/PLT COUNT & AUTO [id number] 05:43:00 Test Item Value Reference Range Comments WHITE BLOOD CELL COUNT (BEAKER) (test nfba=890) 6.0 K/ L 3.5-10.5 RED BLOOD CELL COUNT (BEAKER) (test hmya=927) 2.97 M/ L 3.93-5.22 HEMOGLOBIN (BEAKER) (test qxfl=252) 8.2 GM/DL 11.2-15.7 HEMATOCRIT (BEAKER) (test mdxy=156) 26.0 % 34.1-44.9 MEAN CORPUSCULAR VOLUME (BEAKER) (test ghbr=732) 87.5 fL 79.4-94.8 MEAN CORPUSCULAR HEMOGLOBIN (BEAKER) (test 27.6 pg 25.6-32.2 gbdq=955) MEAN CORPUSCULAR HEMOGLOBIN CONC (BEAKER) (test 31.5 GM/DL 32.2-35.5 klmq=630) RED CELL DISTRIBUTION WIDTH (BEAKER) (test 17.7 % 11.7-14.4 gatg=138) PLATELET COUNT (BEAKER) (test hkwg=644) 194 K/CU MM 150-450 MEAN PLATELET VOLUME (BEAKER) (test qqgv=822) 9.3 fL 9.4-12.3 NUCLEATED RED BLOOD CELLS (BEAKER) (test 0 /100 WBC 0-0 culf=420) NEUTROPHILS RELATIVE PERCENT (BEAKER) (test 48 % zucc=079) LYMPHOCYTES RELATIVE PERCENT (BEAKER) (test 31 % agnp=706) MONOCYTES RELATIVE PERCENT (BEAKER) (test 10 % rbbb=026) EOSINOPHILS RELATIVE PERCENT (BEAKER) (test 9 % erjv=723) BASOPHILS RELATIVE PERCENT (BEAKER) (test 1 % rnop=339) NEUTROPHILS ABSOLUTE COUNT (BEAKER) (test 2.84 K/ L 1.56-6.13 tvgf=549) LYMPHOCYTES ABSOLUTE COUNT (BEAKER) (test 1.87 K/ L 1.18-3.74 nseq=465) MONOCYTES ABSOLUTE COUNT (BEAKER) (test 0.60 K/ L 0.24-0.36 nkiz=873) EOSINOPHILS ABSOLUTE COUNT (BEAKER) (test 0.56 K/ L 0.04-0.36 ritw=797) BASOPHILS ABSOLUTE COUNT (BEAKER) (test 0.08 K/ L 0.01-0.08 zenj=456) IMMATURE GRANULOCYTES-RELATIVE PERCENT (BEAKER) 0 % 0-1 (test ehee=6898) [id number] 05:42:00 Test Item Value Reference Range Comments PHOSPHORUS (BEAKER) (test ieux=804) 2.3 mg/dL 2.3-4.7 POCT-GLUCOSE [id number] 22:34:00 Test Item Value Reference Range Comments POC-GLUCOSE METER (BEAKER) 192 mg/dL 70-110 TESTED AT [address] (test vnzw=6793) [place] [id number] POCT-GLUCOSE [id number] 17:01:00 Test Item Value Reference Range Comments POC-GLUCOSE METER (BEAKER) 250 mg/dL 70-110 TESTED AT [address] (test soum=3847) [place] [address] [id number] 07:42:00 Test Item Value Reference Range Comments MAGNESIUM (BEAKER) (test 1.6 mg/dL 1.6-2.6 Specimen slightly hemolyzed urwh=487) [id number] 07:42:00 Test Item Value Reference Range Comments PHOSPHORUS (BEAKER) (test 2.8 mg/dL 2.3-4.7 Specimen slightly hemolyzed zrjy=564) COMPREHENSIVE METABOLIC [id number] 07:42:00 Test Item Value Reference Range Comments TOTAL PROTEIN (BEAKER) 5.5 gm/dL 6.0-8.3 Specimen slightly (test qfdu=279) hemolyzed ALBUMIN (BEAKER) (test 2.9 g/dL 3.5-5.0 Specimen slightly lqmk=0920) hemolyzed ALKALINE PHOSPHATASE 125 U/L 40-150 (BEAKER) (test dpwi=515) BILIRUBIN TOTAL (BEAKER) 1.1 mg/dL 0.2-1.2 Specimen slightly (test rcvc=625) hemolyzed SODIUM (BEAKER) (test 141 meq/L 136-145 twuz=904) POTASSIUM (BEAKER) (test 3.6 meq/L 3.5-5.1 Specimen slightly ttit=830) hemolyzed CHLORIDE (BEAKER) (test 101 meq/L 98-107 zfzh=349) CO2 (BEAKER) (test 31 meq/L 22-29 aypy=082) BLOOD UREA NITROGEN 23 mg/dL 7-21 (BEAKER) (test hjuo=504) CREATININE (BEAKER) (test 1.50 mg/dL 0.57-1.25 Specimen slightly uxyj=875) hemolyzed GLUCOSE RANDOM (BEAKER) 153 mg/dL 70-105 (test owgq=125) CALCIUM (BEAKER) (test 8.7 mg/dL 8.4-10.2 kelf=142) AST (SGOT) (BEAKER) (test 35 U/L 5-34 Specimen slightly qylo=637) hemolyzed ALT (SGPT) (BEAKER) (test 12 U/L 6-55 Specimen slightly pefe=926) hemolyzed EGFR (BEAKER) (test 35 mL/min/1.73 sq m ESTIMATED GFR IS NOT oori=4193) ACCURATE CREATININE CLEARANCE IN PREDICTING GLOMERULAR FILTRATION RATE. ESTIMATED GFR IS NOT APPLICABLE FOR DIALYSIS PATIENTS. POCT-GLUCOSE [id number] 07:38:00 Test Item Value Reference Range Comments POC-GLUCOSE METER (BEAKER) 154 mg/dL 70-110 TESTED AT [facility] [address] [facility] (test jeko=7977) [facility] [address] CBC W/PLT COUNT & AUTO [id number] 06:24:00 Test Item Value Reference Range Comments WHITE BLOOD CELL COUNT (BEAKER) (test ngrc=159) 6.0 K/ L 3.5-10.5 RED BLOOD CELL COUNT (BEAKER) (test pdgw=645) 3.09 M/ L 3.93-5.22 HEMOGLOBIN (BEAKER) (test qhwn=033) 8.5 GM/DL 11.2-15.7 HEMATOCRIT (BEAKER) (test abxe=130) 27.0 % 34.1-44.9 MEAN CORPUSCULAR VOLUME (BEAKER) (test qxzt=165) 87.4 fL 79.4-94.8 MEAN CORPUSCULAR HEMOGLOBIN (BEAKER) (test 27.5 pg 25.6-32.2 hmgm=133) MEAN CORPUSCULAR HEMOGLOBIN CONC (BEAKER) (test 31.5 GM/DL 32.2-35.5 lafh=099) RED CELL DISTRIBUTION WIDTH (BEAKER) (test 17.7 % 11.7-14.4 esxr=723) PLATELET COUNT (BEAKER) (test ykbe=436) 196 K/CU MM 150-450 MEAN PLATELET VOLUME (BEAKER) (test ybsn=804) 8.9 fL 9.4-12.3 NUCLEATED RED BLOOD CELLS (BEAKER) (test 0 /100 WBC 0-0 jlsz=165) NEUTROPHILS RELATIVE PERCENT (BEAKER) (test 44 % lnif=469) LYMPHOCYTES RELATIVE PERCENT (BEAKER) (test 34 % dooz=217) MONOCYTES RELATIVE PERCENT (BEAKER) (test 11 % iysx=662) EOSINOPHILS RELATIVE PERCENT (BEAKER) (test 9 % skmk=745) BASOPHILS RELATIVE PERCENT (BEAKER) (test 2 % ludx=281) NEUTROPHILS ABSOLUTE COUNT (BEAKER) (test 2.64 K/ L 1.56-6.13 osed=168) LYMPHOCYTES ABSOLUTE COUNT (BEAKER) (test 2.03 K/ L 1.18-3.74 rqtq=994) MONOCYTES ABSOLUTE COUNT (BEAKER) (test 0.64 K/ L 0.24-0.36 kuuh=205) EOSINOPHILS ABSOLUTE COUNT (BEAKER) (test 0.54 K/ L 0.04-0.36 xjcv=981) BASOPHILS ABSOLUTE COUNT (BEAKER) (test 0.09 K/ L 0.01-0.08 yzao=313) IMMATURE GRANULOCYTES-RELATIVE PERCENT (BEAKER) 0 % 0-1 (test gnsl=7153) CALCIUM, [id number] 05:35:00 Test Item Value Reference Range Comments CALCIUM IONIZED (BEAKER) (test papz=984) 0.99 mmol/L 1.12-1.27 PH, BLOOD (BEAKER) (test yhya=0065) 7.50 POCT-GLUCOSE [id number] 22:12:00 Test Item Value Reference Range Comments POC-GLUCOSE METER (BEAKER) 246 mg/dL 70-110 TESTED AT [address] (test zayq=9017) [facility] [address] POCT-GLUCOSE [id number] 17:11:00 Test Item Value Reference Range Comments POC-GLUCOSE METER (BEAKER) 201 mg/dL 70-110 TESTED AT [facility] [address] [facility] (test rjcc=7393) [facility] [address] POCT-GLUCOSE [id number] 13:24:00 Test Item Value Reference Range Comments POC-GLUCOSE METER (BEAKER) 173 mg/dL 70-110 TESTED AT [place] [id number] [facility] (test ansg=0726) [facility] [address] COMPREHENSIVE METABOLIC [id number] 09:06:00 Test Item Value Reference Range Comments TOTAL PROTEIN (BEAKER) 5.8 gm/dL 6.0-8.3 (test zluc=440) ALBUMIN (BEAKER) (test 3.2 g/dL 3.5-5.0 eozr=4397) ALKALINE PHOSPHATASE 125 U/L 40-150 (BEAKER) (test cuoq=742) BILIRUBIN TOTAL (BEAKER) 1.6 mg/dL 0.2-1.2 (test ngeb=652) SODIUM (BEAKER) (test 140 meq/L 136-145 amux=562) POTASSIUM (BEAKER) (test 3.4 meq/L 3.5-5.1 ifkk=828) CHLORIDE (BEAKER) (test 100 meq/L 98-107 jfwe=797) CO2 (BEAKER) (test 31 meq/L 22-29 srpm=458) BLOOD UREA NITROGEN 21 mg/dL 7-21 (BEAKER) (test dmxf=546) CREATININE (BEAKER) (test 1.57 mg/dL 0.57-1.25 bqdy=717) GLUCOSE RANDOM (BEAKER) 138 mg/dL 70-105 (test mawh=411) CALCIUM (BEAKER) (test 8.9 mg/dL 8.4-10.2 quum=283) AST (SGOT) (BEAKER) (test 33 U/L 5-34 dhha=342) ALT (SGPT) (BEAKER) (test 13 U/L 6-55 pqeq=666) EGFR (BEAKER) (test 33 mL/min/1.73 sq m ESTIMATED GFR IS NOT spgx=6106) ACCURATE CREATININE CLEARANCE IN PREDICTING GLOMERULAR FILTRATION RATE. ESTIMATED GFR IS NOT APPLICABLE FOR DIALYSIS PATIENTS. Specimen slightly ictericPOCT-GLUCOSE [id number] 07:53:00 Test Item Value Reference Range Comments POC-GLUCOSE METER (BEAKER) 157 mg/dL 70-110 TESTED AT [address] (test dbgf=3755) [facility] [address] CBC (HEMOGRAM ONLY)2019-05-31 06:33:00 Test Item Value Reference Range Comments WHITE BLOOD CELL COUNT (BEAKER) (test mflq=634) 5.7 K/ L 3.5-10.5 RED BLOOD CELL COUNT (BEAKER) (test rgvz=742) 3.25 M/ L 3.93-5.22 HEMOGLOBIN (BEAKER) (test pyaf=280) 8.9 GM/DL 11.2-15.7 HEMATOCRIT (BEAKER) (test vvgm=588) 28.3 % 34.1-44.9 MEAN CORPUSCULAR VOLUME (BEAKER) (test nvsu=104) 87.1 fL 79.4-94.8 MEAN CORPUSCULAR HEMOGLOBIN (BEAKER) (test 27.4 pg 25.6-32.2 rewd=781) MEAN CORPUSCULAR HEMOGLOBIN CONC (BEAKER) (test 31.4 GM/DL 32.2-35.5 bmdm=890) RED CELL DISTRIBUTION WIDTH (BEAKER) (test 17.5 % 11.7-14.4 khzl=936) PLATELET COUNT (BEAKER) (test otvm=300) 188 K/CU MM 150-450 MEAN PLATELET VOLUME (BEAKER) (test duui=780) 9.1 fL 9.4-12.3 NUCLEATED RED BLOOD CELLS (BEAKER) (test 0 /100 WBC 0-0 utiu=815) POCT-GLUCOSE [id number] 22:28:00 Test Item Value Reference Range Comments POC-GLUCOSE METER (BEAKER) 193 mg/dL 70-110 TESTED AT [address] (test xkae=0789) [facility] [address] POCT-GLUCOSE [id number] 17:19:00 Test Item Value Reference Range Comments POC-GLUCOSE METER (BEAKER) 155 mg/dL 70-110 TESTED AT [address] (test olks=7028) [facility] [address] POCT-GLUCOSE [id number] 12:44:00 Test Item Value Reference Range Comments POC-GLUCOSE METER (BEAKER) 189 mg/dL 70-110 TESTED AT [facility] [address] [facility] (test xsde=5563) [facility] [address] POCT-GLUCOSE [id number] 08:30:00 Test Item Value Reference Range Comments POC-GLUCOSE METER (BEAKER) 140 mg/dL 70-110 TESTED AT [facility] [address] [facility] (test tpyl=2519) [facility] [address] [id number] 05:15:00 Test Item Value Reference Range Comments THYROID STIMULATING HORMONE (BEAKER) (test 6.32 uIU/mL 0.35-4.94 osuy=888) T4, [id number] 05:11:00 Test Item Value Reference Range Comments FREE T4 (BEAKER) (test kxyw=038) 1.70 ng/dL 0.70-1.48 [id number] 04:53:00 Test Item Value Reference Range Comments PHOSPHORUS (BEAKER) (test hanv=066) 2.4 mg/dL 2.3-4.7 [id number] 04:53:00 Test Item Value Reference Range Comments MAGNESIUM (BEAKER) (test fwlw=789) 1.8 mg/dL 1.6-2.6 COMPREHENSIVE METABOLIC [id number] 04:53:00 Test Item Value Reference Range Comments TOTAL PROTEIN (BEAKER) 5.1 gm/dL 6.0-8.3 (test cfjw=317) ALBUMIN (BEAKER) (test 2.9 g/dL 3.5-5.0 tbwk=4059) ALKALINE PHOSPHATASE 101 U/L 40-150 (BEAKER) (test prwn=724) BILIRUBIN TOTAL (BEAKER) 1.6 mg/dL 0.2-1.2 (test zjdw=521) SODIUM (BEAKER) (test 137 meq/L 136-145 xqnz=922) POTASSIUM (BEAKER) (test 3.7 meq/L 3.5-5.1 djta=451) CHLORIDE (BEAKER) (test 99 meq/L 98-107 ibfj=358) CO2 (BEAKER) (test 32 meq/L 22-29 ndla=368) BLOOD UREA NITROGEN 20 mg/dL 7-21 (BEAKER) (test fyvr=810) CREATININE (BEAKER) (test 1.55 mg/dL 0.57-1.25 ytjc=454) GLUCOSE RANDOM (BEAKER) 157 mg/dL 70-105 (test ehok=698) CALCIUM (BEAKER) (test 8.3 mg/dL 8.4-10.2 qcxm=863) AST (SGOT) (BEAKER) (test 33 U/L 5-34 ibdm=546) ALT (SGPT) (BEAKER) (test 12 U/L 6-55 docw=088) EGFR (BEAKER) (test 34 mL/min/1.73 sq m ESTIMATED GFR IS NOT gsuc=4099) ACCURATE CREATININE CLEARANCE IN PREDICTING GLOMERULAR FILTRATION RATE. ESTIMATED GFR IS NOT APPLICABLE FOR DIALYSIS PATIENTS. CBC (HEMOGRAM ONLY)2019-05-30 04:13:00 Test Item Value Reference Range Comments WHITE BLOOD CELL COUNT (BEAKER) (test tiyt=925) 5.3 K/ L 3.5-10.5 RED BLOOD CELL COUNT (BEAKER) (test frbf=827) 2.75 M/ L 3.93-5.22 HEMOGLOBIN (BEAKER) (test hyfl=134) 7.6 GM/DL 11.2-15.7 HEMATOCRIT (BEAKER) (test ddjn=400) 24.2 % 34.1-44.9 MEAN CORPUSCULAR VOLUME (BEAKER) (test hunq=477) 88.0 fL 79.4-94.8 MEAN CORPUSCULAR HEMOGLOBIN (BEAKER) (test 27.6 pg 25.6-32.2 lhbv=498) MEAN CORPUSCULAR HEMOGLOBIN CONC (BEAKER) (test 31.4 GM/DL 32.2-35.5 cnbt=363) RED CELL DISTRIBUTION WIDTH (BEAKER) (test 17.4 % 11.7-14.4 hlst=233) PLATELET COUNT (BEAKER) (test susl=006) 162 K/CU MM 150-450 MEAN PLATELET VOLUME (BEAKER) (test long=968) 9.2 fL 9.4-12.3 NUCLEATED RED BLOOD CELLS (BEAKER) (test 0 /100 WBC 0-0 xldv=821) CALCIUM, [id number] 04:13:00 Test Item Value Reference Range Comments CALCIUM IONIZED (BEAKER) (test qsrw=480) 0.98 mmol/L 1.12-1.27 PH, BLOOD (BEAKER) (test hxga=8521) 7.58 RAD, CHEST, 2 [id number] 23:47:00Reason for exam:->opacitiesFINAL REPORT Portable chest. HISTORY: [...] MDReport Verified Date/Time: 05/29/2019 23:47:08 Reading Location: [address] Consult Reading Room POCT-GLUCOSE [id number] 23:12:00 Test Item Value Reference Range Comments POC-GLUCOSE METER (BEAKER) 192 mg/dL 70-110 TESTED AT [address] (test kzsa=1464) [facility] [address] URINALYSIS W/ [id number] 18:14:00 Test Item Value Reference Range Comments COLOR (BEAKER) (test bmqy=210) Yellow CLARITY (BEAKER) (test dwik=411) Clear SPECIFIC GRAVITY UA (BEAKER) (test 1.011 1.001-1.035 yqcu=379) PH UA (BEAKER) (test lqhx=959) 8.5 5.0-8.0 PROTEIN UA (BEAKER) (test zhwo=350) 20 mg/dL Negative GLUCOSE UA (BEAKER) (test dcyv=086) Negative Negative KETONES UA (BEAKER) (test beus=733) Negative Negative BILIRUBIN UA (BEAKER) (test janb=072) Negative Negative BLOOD UA (BEAKER) (test dkwu=235) Negative Negative NITRITE UA (BEAKER) (test utvb=768) Negative Negative LEUKOCYTE ESTERASE UA (BEAKER) (test Negative Negative lcdi=661) UROBILINOGEN UA (BEAKER) (test noci=617) 12.0 mg/dL 0.2-1.0 RBC UA (BEAKER) (test fbcm=149) < /HPF WBC UA (BEAKER) (test dbmy=452) 1 /HPF BACTERIA (BEAKER) (test moxi=055) Rare SQUAMOUS EPITHELIAL (BEAKER) (test 3 /HPF urvl=788) SOURCE(BEAKER) (test yeiz=6335) Urine, Clean Catch POCT-GLUCOSE [id number] 16:55:00 Test Item Value Reference Range Comments POC-GLUCOSE METER (BEAKER) 186 mg/dL 70-110 TESTED AT [address] (test jdlo=0667) [facility] [address] TISSUE [id number] 15:15:00Surgical Pathology Report Case: [id number] Authorizing Provider: Shannen Giron MD Collected: 05/28/2019 1448 Ordering Location: [address] Received: 05/29/2019 0915 Service Pathologist: Padilla Reed MD Specimen: Polyp, Colon - Right/Ascending, taken by doug pathak PART A RIGHT ASCENDING COLON POLYP, POLYPECTOMY:TUBULAR ADENOMA. Signing Pathologist Direct Phone Line: [phone] signed by Padilla Reed MD on 05/29/2019 at 3:15 [id number] colonoscopyRight ascending colonReceived in formalin, labelled with the patients name, date of , and medical record number and labelled "right ascending colon polyp" are three portions of silva tissue measuring 0.5 x 0.4 x 0.3 cm in aggregate. Submitted in toto in one cassette. Performed.BODY FLUID CULTURE + GRAM [id number] 12:56:00 Test Item Value Reference Range Comments CULTURE (BEAKER) (test sjgc=5010) No growth GRAM STAIN RESULT (BEAKER) (test No WBCs eolu=5469) GRAM STAIN RESULT (BEAKER) (test No organisms seen khvo=34417) POCT-GLUCOSE [id number] 12:37:00 Test Item Value Reference Range Comments POC-GLUCOSE METER (BEAKER) 154 mg/dL 70-110 TESTED AT [address] (test lfdn=9145) [place] [id number] POCT-GLUCOSE [id number] 09:12:00 Test Item Value Reference Range Comments POC-GLUCOSE METER (BEAKER) 76 mg/dL 70-110 TESTED AT [address] (test lsze=1148) [facility] [address] COMPREHENSIVE METABOLIC [id number] 08:19:00 Test Item Value Reference Range Comments TOTAL PROTEIN (BEAKER) 4.9 gm/dL 6.0-8.3 (test enpk=720) ALBUMIN (BEAKER) (test 3.0 g/dL 3.5-5.0 rtnu=6346) ALKALINE PHOSPHATASE 88 U/L 40-150 (BEAKER) (test sxyf=104) BILIRUBIN TOTAL (BEAKER) 1.9 mg/dL 0.2-1.2 (test udaw=031) SODIUM (BEAKER) (test 141 meq/L 136-145 mlxw=428) POTASSIUM (BEAKER) (test 3.5 meq/L 3.5-5.1 zjyv=642) CHLORIDE (BEAKER) (test 100 meq/L 98-107 hztb=902) CO2 (BEAKER) (test 34 meq/L 22-29 qvyz=885) BLOOD UREA NITROGEN 18 mg/dL 7-21 (BEAKER) (test vjey=655) CREATININE (BEAKER) (test 1.50 mg/dL 0.57-1.25 gkot=796) GLUCOSE RANDOM (BEAKER) 92 mg/dL 70-105 (test qluc=907) CALCIUM (BEAKER) (test 8.5 mg/dL 8.4-10.2 ziin=886) AST (SGOT) (BEAKER) (test 27 U/L 5-34 jyqg=524) ALT (SGPT) (BEAKER) (test 10 U/L 6-55 ckfo=724) EGFR (BEAKER) (test 35 mL/min/1.73 sq m ESTIMATED GFR IS NOT lsrk=4311) ACCURATE CREATININE CLEARANCE IN PREDICTING GLOMERULAR FILTRATION RATE. ESTIMATED GFR IS NOT APPLICABLE FOR DIALYSIS PATIENTS. Specimen slightly [id number] 08:18:00 Test Item Value Reference Range Comments PHOSPHORUS (BEAKER) (test efik=755) 2.8 mg/dL 2.3-4.7 [id number] 08:18:00 Test Item Value Reference Range Comments MAGNESIUM (BEAKER) (test yqzb=347) 2.0 mg/dL 1.6-2.6 CBC W/PLT COUNT & AUTO [id number] 05:59:00 Test Item Value Reference Range Comments WHITE BLOOD CELL COUNT (BEAKER) (test fkbj=830) 5.3 K/ L 3.5-10.5 RED BLOOD CELL COUNT (BEAKER) (test hzqt=014) 2.79 M/ L 3.93-5.22 HEMOGLOBIN (BEAKER) (test dozb=417) 7.7 GM/DL 11.2-15.7 HEMATOCRIT (BEAKER) (test xbqt=988) 24.8 % 34.1-44.9 MEAN CORPUSCULAR VOLUME (BEAKER) (test bthq=751) 88.9 fL 79.4-94.8 MEAN CORPUSCULAR HEMOGLOBIN (BEAKER) (test 27.6 pg 25.6-32.2 okmj=041) MEAN CORPUSCULAR HEMOGLOBIN CONC (BEAKER) (test 31.0 GM/DL 32.2-35.5 ykil=419) RED CELL DISTRIBUTION WIDTH (BEAKER) (test 17.6 % 11.7-14.4 shxr=507) PLATELET COUNT (BEAKER) (test ymjf=671) 146 K/CU MM 150-450 MEAN PLATELET VOLUME (BEAKER) (test iukn=335) 9.6 fL 9.4-12.3 NUCLEATED RED BLOOD CELLS (BEAKER) (test 0 /100 WBC 0-0 agzu=414) NEUTROPHILS RELATIVE PERCENT (BEAKER) (test 46 % cjow=803) LYMPHOCYTES RELATIVE PERCENT (BEAKER) (test 31 % rffh=703) MONOCYTES RELATIVE PERCENT (BEAKER) (test 11 % dsdm=204) EOSINOPHILS RELATIVE PERCENT (BEAKER) (test 10 % lxqc=641) BASOPHILS RELATIVE PERCENT (BEAKER) (test 2 % ycsv=448) NEUTROPHILS ABSOLUTE COUNT (BEAKER) (test 2.46 K/ L 1.56-6.13 dlau=052) LYMPHOCYTES ABSOLUTE COUNT (BEAKER) (test 1.66 K/ L 1.18-3.74 lvrw=530) MONOCYTES ABSOLUTE COUNT (BEAKER) (test 0.57 K/ L 0.24-0.36 sulx=843) EOSINOPHILS ABSOLUTE COUNT (BEAKER) (test 0.52 K/ L 0.04-0.36 bjvl=637) BASOPHILS ABSOLUTE COUNT (BEAKER) (test 0.08 K/ L 0.01-0.08 jhfg=703) IMMATURE GRANULOCYTES-RELATIVE PERCENT (BEAKER) 0 % 0-1 (test nikz=7505) CALCIUM, [id number] 05:04:00 Test Item Value Reference Range Comments CALCIUM IONIZED (BEAKER) (test wtse=593) 1.02 mmol/L 1.12-1.27 PH, BLOOD (BEAKER) (test axcq=1722) 7.50 POCT-GLUCOSE [id number] 21:27:00 Test Item Value Reference Range Comments POC-GLUCOSE METER (BEAKER) 139 mg/dL 70-110 TESTED AT [address] (test thus=4522) [place] [address] BASIC METABOLIC [id number] 18:28:00 Test Item Value Reference Range Comments SODIUM (BEAKER) (test 142 meq/L 136-145 sofc=867) POTASSIUM (BEAKER) (test 3.5 meq/L 3.5-5.1 rglj=398) CHLORIDE (BEAKER) (test 99 meq/L 98-107 sofv=167) CO2 (BEAKER) (test 37 meq/L 22-29 uyqq=567) BLOOD UREA NITROGEN 17 mg/dL 7-21 (BEAKER) (test nuta=223) CREATININE (BEAKER) (test 1.38 mg/dL 0.57-1.25 usoj=975) GLUCOSE RANDOM (BEAKER) 78 mg/dL 70-105 (test eiyw=602) CALCIUM (BEAKER) (test 8.5 mg/dL 8.4-10.2 dhrf=368) EGFR (BEAKER) (test 39 mL/min/1.73 sq m ESTIMATED GFR IS NOT ulqw=4010) ACCURATE CREATININE CLEARANCE IN PREDICTING GLOMERULAR FILTRATION RATE. ESTIMATED GFR IS NOT APPLICABLE FOR DIALYSIS PATIENTS. Call [id number] with resultsSpecimen slightly ictericPOCT-GLUCOSE [id number] 18:10:00 Test Item Value Reference Range Comments POC-GLUCOSE METER (BEAKER) 82 mg/dL 70-110 TESTED AT [address] (test tkkg=9611) [place] [id number] CBC W/PLT COUNT & AUTO [id number] 11:56:00 Test Item Value Reference Range Comments WHITE BLOOD CELL COUNT (BEAKER) (test opje=472) 5.0 K/ L 3.5-10.5 RED BLOOD CELL COUNT (BEAKER) (test rwov=425) 2.82 M/ L 3.93-5.22 HEMOGLOBIN (BEAKER) (test bpuj=225) 7.9 GM/DL 11.2-15.7 HEMATOCRIT (BEAKER) (test gnyn=520) 25.0 % 34.1-44.9 MEAN CORPUSCULAR VOLUME (BEAKER) (test oqou=592) 88.7 fL 79.4-94.8 MEAN CORPUSCULAR HEMOGLOBIN (BEAKER) (test 28.0 pg 25.6-32.2 gnve=683) MEAN CORPUSCULAR HEMOGLOBIN CONC (BEAKER) (test 31.6 GM/DL 32.2-35.5 hyyw=144) RED CELL DISTRIBUTION WIDTH (BEAKER) (test 17.6 % 11.7-14.4 dpwa=082) PLATELET COUNT (BEAKER) (test pwlg=429) 155 K/CU MM 150-450 MEAN PLATELET VOLUME (BEAKER) (test xqfu=156) 9.5 fL 9.4-12.3 NUCLEATED RED BLOOD CELLS (BEAKER) (test 0 /100 WBC 0-0 umju=355) (CELLAVISION MANUAL DIFF)2019-05-28 11:56:00 Test Item Value Reference Range Comments NEUTROPHILS - REL (CELLAVISION)(BEAKER) (test 69 % bemu=5740) LYMPHOCYTES - REL (CELLAVISION)(BEAKER) (test 21 % ybcz=1669) MONOCYTES - REL (CELLAVISION)(BEAKER) (test 3 % dspl=8173) EOSINOPHILS - REL (CELLAVISION)(BEAKER) (test 5 % uduk=6594) BASOPHILS - REL (CELLAVISION)(BEAKER) (test 1 % kwyk=4811) MYELOCYTES - REL (CELLAVISION)(BEAKER) (test 1 % 0-0 sptr=4675) NEUTROPHILS - ABS (CELLAVISION)(BEAKER) (test 3.45 K/ul 1.56-6.13 kypr=6414) LYMPHOCYTES - ABS (CELLAVISION)(BEAKER) (test 1.05 K/ul 1.18-3.74 sohs=3981) MONOCYTES - ABS (CELLAVISION)(BEAKER) (test 0.15 K/uL 0.24-0.36 sjjw=1644) EOSINOPHILS - ABS (CELLAVISION)(BEAKER) (test 0.25 K/uL 0.04-0.36 tffs=1165) BASOPHILS - ABS (CELLAVISION)(BEAKER) (test 0.05 K/uL 0.01-0.08 qzaa=7159) MYELOCYTES-ABS (CELLAVISION)(BEAKER) (test 0.05 K/uL 0.00-0.00 mcqx=0411) TOTAL COUNTED (BEAKER) (test bguf=1111) 100 PLT MORPHOLOGY (BEAKER) (test nacd=188) Normal SMUDGE CELLS (BEAKER) (test jyhw=1925) Present POLYCHROMATOPHILLIC RBCS(BEAKER) (test ktuh=735) 1+ few ANISOCYTOSIS (BEAKER) (test ljiz=196) 2+ moderate MICROCYTES (BEAKER) (test wtqv=421) 2+ moderate POIKILOCYTES (BEAKER) (test nwel=790) 1+ few SPHEROCYTES (BEAKER) (test uskw=530) 1+ few PLATELET CONCENTRATION (CELLAVISION)(BEAKER) Adequate (test rwqi=9220) Received comment: User comments: Slide comments:POCT-GLUCOSE [id number] 10: 05:00 Test Item Value Reference Range Comments POC-GLUCOSE METER (BEAKER) 82 mg/dL 70-110 TESTED AT [address] (test dxlx=9918) [facility] [address] POCT-GLUCOSE [id number] 09:07:00 Test Item Value Reference Range Comments POC-GLUCOSE METER (BEAKER) 84 mg/dL 70-110 TESTED AT [address] (test lbgc=6834) [facility] [address] [id number] 06:31:00 Test Item Value Reference Range Comments PHOSPHORUS (BEAKER) (test pnym=661) 2.5 mg/dL 2.3-4.7 [id number] 06:31:00 Test Item Value Reference Range Comments MAGNESIUM (BEAKER) (test gehr=198) 1.7 mg/dL 1.6-2.6 COMPREHENSIVE METABOLIC [id number] 06:31:00 Test Item Value Reference Range Comments TOTAL PROTEIN (BEAKER) 4.9 gm/dL 6.0-8.3 (test mpnv=155) ALBUMIN (BEAKER) (test 3.1 g/dL 3.5-5.0 imqu=4080) ALKALINE PHOSPHATASE 82 U/L 40-150 (BEAKER) (test ocvf=287) BILIRUBIN TOTAL (BEAKER) 2.3 mg/dL 0.2-1.2 (test alyc=796) SODIUM (BEAKER) (test 143 meq/L 136-145 bunx=613) POTASSIUM (BEAKER) (test 3.5 meq/L 3.5-5.1 wnpp=026) CHLORIDE (BEAKER) (test 100 meq/L 98-107 znev=156) CO2 (BEAKER) (test 37 meq/L 22-29 dgip=326) BLOOD UREA NITROGEN 16 mg/dL 7-21 (BEAKER) (test kfba=728) CREATININE (BEAKER) (test 1.37 mg/dL 0.57-1.25 xmim=210) GLUCOSE RANDOM (BEAKER) 96 mg/dL 70-105 (test ajwx=804) CALCIUM (BEAKER) (test 8.6 mg/dL 8.4-10.2 oklu=248) AST (SGOT) (BEAKER) (test 30 U/L 5-34 ggvy=081) ALT (SGPT) (BEAKER) (test 10 U/L 6-55 jnzs=319) EGFR (BEAKER) (test 39 mL/min/1.73 sq m ESTIMATED GFR IS NOT reyb=5977) ACCURATE CREATININE CLEARANCE IN PREDICTING GLOMERULAR FILTRATION RATE. ESTIMATED GFR IS NOT APPLICABLE FOR DIALYSIS PATIENTS. Specimen slightly ictericB-TYPE NATRIURETIC FACTOR (BNP)2019-05-28 06:19:00 Test Item Value Reference Range Comments B-TYPE NATRIURETIC PEPTIDE (BEAKER) (test 381 pg/mL 0-100 myfi=804) CALCIUM, [id number] 05:25:00 Test Item Value Reference Range Comments CALCIUM IONIZED (BEAKER) (test ydup=571) 1.03 mmol/L 1.12-1.27 PH, BLOOD (BEAKER) (test zvsn=8104) 7.49 POCT-GLUCOSE [id number] 22:42:00 Test Item Value Reference Range Comments POC-GLUCOSE METER (BEAKER) 174 mg/dL 70-110 TESTED AT [address] (test qzjj=8881) [facility] [address] [id number] 17:57:00 Test Item Value Reference Range Comments SODIUM (BEAKER) (test ndhr=858) 140 meq/L 136-145 POTASSIUM (BEAKER) (test 3.9 meq/L 3.5-5.1 Specimen slightly hemolyzed ldfy=574) CHLORIDE (BEAKER) (test 99 meq/L 98-107 fwzd=480) CO2 (BEAKER) (test ighc=436) 35 meq/L 22-29 Call [id number] 17:50:00 Test Item Value Reference Range Comments POC-GLUCOSE METER (BEAKER) 151 mg/dL 70-110 TESTED AT [address] (test nbwq=6455) [place] [id number] POCT-GLUCOSE [id number] 12:36:00 Test Item Value Reference Range Comments POC-GLUCOSE METER (BEAKER) 123 mg/dL 70-110 TESTED AT [address] (test khvv=2370) [place] [id number] POCT-GLUCOSE [id number] 08:15:00 Test Item Value Reference Range Comments POC-GLUCOSE METER (BEAKER) 121 mg/dL 70-110 TESTED AT [address] (test pzqx=1214) [place] [address] [id number] 07:00:00 Test Item Value Reference Range Comments PHOSPHORUS (BEAKER) (test ookn=842) 1.9 mg/dL 2.3-4.7 [id number] 07:00:00 Test Item Value Reference Range Comments MAGNESIUM (BEAKER) (test kcnr=335) 1.6 mg/dL 1.6-2.6 COMPREHENSIVE METABOLIC [id number] 07:00:00 Test Item Value Reference Range Comments TOTAL PROTEIN (BEAKER) 4.9 gm/dL 6.0-8.3 (test nyls=637) ALBUMIN (BEAKER) (test 3.1 g/dL 3.5-5.0 oekn=5036) ALKALINE PHOSPHATASE 75 U/L 40-150 (BEAKER) (test sdkm=844) BILIRUBIN TOTAL (BEAKER) 1.9 mg/dL 0.2-1.2 (test wggl=949) SODIUM (BEAKER) (test 139 meq/L 136-145 ddhx=339) POTASSIUM (BEAKER) (test 4.3 meq/L 3.5-5.1 kavs=040) CHLORIDE (BEAKER) (test 99 meq/L 98-107 beqx=713) CO2 (BEAKER) (test 37 meq/L 22-29 wezn=422) BLOOD UREA NITROGEN 16 mg/dL 7-21 (BEAKER) (test knqn=897) CREATININE (BEAKER) (test 1.29 mg/dL 0.57-1.25 wlsd=695) GLUCOSE RANDOM (BEAKER) 139 mg/dL 70-105 (test npha=664) CALCIUM (BEAKER) (test 8.5 mg/dL 8.4-10.2 ncjw=339) AST (SGOT) (BEAKER) (test 23 U/L 5-34 rwft=015) ALT (SGPT) (BEAKER) (test 8 U/L 6-55 mipc=069) EGFR (BEAKER) (test 42 mL/min/1.73 sq m ESTIMATED GFR IS NOT tueg=5340) ACCURATE CREATININE CLEARANCE IN PREDICTING GLOMERULAR FILTRATION RATE. ESTIMATED GFR IS NOT APPLICABLE FOR DIALYSIS PATIENTS. Specimen slightly ictericCBC W/PLT COUNT & AUTO [id number] 06:20 :00 Test Item Value Reference Range Comments WHITE BLOOD CELL COUNT (BEAKER) (test rxuw=624) 4.7 K/ L 3.5-10.5 RED BLOOD CELL COUNT (BEAKER) (test qgkf=096) 2.71 M/ L 3.93-5.22 HEMOGLOBIN (BEAKER) (test zprh=413) 7.5 GM/DL 11.2-15.7 HEMATOCRIT (BEAKER) (test emir=862) 23.9 % 34.1-44.9 MEAN CORPUSCULAR VOLUME (BEAKER) (test qgdm=425) 88.2 fL 79.4-94.8 MEAN CORPUSCULAR HEMOGLOBIN (BEAKER) (test 27.7 pg 25.6-32.2 lebd=597) MEAN CORPUSCULAR HEMOGLOBIN CONC (BEAKER) (test 31.4 GM/DL 32.2-35.5 qklg=972) RED CELL DISTRIBUTION WIDTH (BEAKER) (test 17.6 % 11.7-14.4 zgmb=434) PLATELET COUNT (BEAKER) (test yikm=901) 137 K/CU MM 150-450 MEAN PLATELET VOLUME (BEAKER) (test ftur=575) 9.6 fL 9.4-12.3 NUCLEATED RED BLOOD CELLS (BEAKER) (test 0 /100 WBC 0-0 mhvy=659) NEUTROPHILS RELATIVE PERCENT (BEAKER) (test 45 % hfqo=758) LYMPHOCYTES RELATIVE PERCENT (BEAKER) (test 33 % syfe=774) MONOCYTES RELATIVE PERCENT (BEAKER) (test 12 % tjgu=213) EOSINOPHILS RELATIVE PERCENT (BEAKER) (test 9 % lakd=323) BASOPHILS RELATIVE PERCENT (BEAKER) (test 1 % drbb=569) NEUTROPHILS ABSOLUTE COUNT (BEAKER) (test 2.13 K/ L 1.56-6.13 qmwl=798) LYMPHOCYTES ABSOLUTE COUNT (BEAKER) (test 1.56 K/ L 1.18-3.74 kgqw=369) MONOCYTES ABSOLUTE COUNT (BEAKER) (test 0.57 K/ L 0.24-0.36 oycb=006) EOSINOPHILS ABSOLUTE COUNT (BEAKER) (test 0.41 K/ L 0.04-0.36 dxdd=852) BASOPHILS ABSOLUTE COUNT (BEAKER) (test 0.05 K/ L 0.01-0.08 tpmz=617) IMMATURE GRANULOCYTES-RELATIVE PERCENT (BEAKER) 0 % 0-1 (test dmdc=9255) CALCIUM, [id number] 05:29:00 Test Item Value Reference Range Comments CALCIUM IONIZED (BEAKER) (test rdsb=454) 1.02 mmol/L 1.12-1.27 PH, BLOOD (BEAKER) (test edeu=7702) 7.53 POCT-GLUCOSE [id number] 22:13:00 Test Item Value Reference Range Comments POC-GLUCOSE METER (BEAKER) 315 mg/dL 70-110 Notified ALEXI ENNIS/TESTED AT [facility] (test ntku=4821) [address] [facility] [address] POCT-GLUCOSE [id number] 18:43:00 Test Item Value Reference Range Comments POC-GLUCOSE METER (BEAKER) 204 mg/dL 70-110 TESTED AT [address] (test ptkf=1456) [facility] [address] U/S, [id number] 17:14:00Reason for exam:->ascitesFINAL REPORT Ultrasound guided paracentesis. Clinical History: Ascites. Sedation: None. Operators: This procedure was performed by SARIKA Lee under direct supervision of Akil Chung M.D. Sausage Inspector: None. Estimated Blood Loss: < 1 cc. [...] was achieved with 2% lidocaine, a 5 [place] [employer] one-step catheter was advanced into the peritoneal cavity under ultrasound guidance. After completion of drainage, the catheter was removed. There was no evidence of complication. Impression:Successful ultrasound guided paracentesis. Signed: Akil Chung MDReport Verified Date/Time: 05/26/2019 17:14:25 Reading Location : [address] Ultrasound Reading Room U/S, [id number] 17:12:00Reason for exam:->ascitesFINAL REPORT Ultrasound guided paracentesis Clinical History: Ascites. Sedation: None. Associate Brand Manager: Micheline Pena PA-C Supervising Physician: Shravan Ruiz MD Sausage Inspector: None. Estimated Blood Loss: < 1 mL. [...] anesthesia was achieved with lidocaine, a 5 [place] [employer] one-step catheter was advanced into theperitoneal cavity under ultrasound guidance. After completion of drainage, the catheter was removed.There was no evidence of complication. Impression:Successful ultrasound guided paracentesis. Signed:Shravan Ruiz Verified Date/Time: 05/26/2019 17:12:51 Reading Location: [address] Ultrasound Reading Room POCT-GLUCOSE [id number] 17:02: 00 Test Item Value Reference Range Comments POC-GLUCOSE METER (BEAKER) 204 mg/dL 70-110 TESTED AT [address] (test jcmq=6623) [place] [address] POCT-GLUCOSE [id number] 13:52:00 Test Item Value Reference Range Comments POC-GLUCOSE METER (BEAKER) 185 mg/dL 70-110 TESTED AT [address] (test qswa=4332) [place] [address] BODY FLUID CELL COUNT WITH [id number] 13:12:00 Test Item Value Reference Range Comments APPEARANCE FLUID (BEAKER) (test mwtf=288) Slightly Hazy Clear COLOR FLUID (BEAKER) (test ciyi=782) Yellow Colorless, Straw RBC FLUID (BEAKER) (test ihmr=368) 3000 /cu mm <=1 ADJUSTED WBC FLUID (BEAKER) (test oets=5315) 107 /cu mm <=5 LINING CELLS (BEAKER) (test ynrz=7418) 13 /cu mm <=1 NEUTROPHILS FLUID (BEAKER) (test xsxo=4909) 0 % LYMPHS FLUID (BEAKER) (test ymru=444) 21 % MONO/MACROPHAGE FLUID (BEAKER) (test 78 % uazg=966) EOSINOPHILS FLUID (BEAKER) (test hvek=830) 1 % BASO FLUID (BEAKER) (test yipo=944) 0 % CONTAINER BODY FLUID (BEAKER) (test EDTA Tube vdmv=6556) POCT-GLUCOSE [id number] 08:40:00 Test Item Value Reference Range Comments POC-GLUCOSE METER (BEAKER) 113 mg/dL 70-110 TESTED AT [address] (test zwdf=2111) [place] [address] [id number] 07:18:00 Test Item Value Reference Range Comments T3 TOTAL (BEAKER) (test 34 ng/dL 48-159 Performed at [facility]. Refer. stoz=210) Range:76-181 [id number] 05:45:00 Test Item Value Reference Range Comments PHOSPHORUS (BEAKER) (test ygjk=696) 1.7 mg/dL 2.3-4.7 [id number] 05:45:00 Test Item Value Reference Range Comments MAGNESIUM (BEAKER) (test nwup=412) 1.8 mg/dL 1.6-2.6 COMPREHENSIVE METABOLIC [id number] 05:45:00 Test Item Value Reference Range Comments TOTAL PROTEIN (BEAKER) 5.1 gm/dL 6.0-8.3 (test slsi=907) ALBUMIN (BEAKER) (test 3.1 g/dL 3.5-5.0 cxwu=9787) ALKALINE PHOSPHATASE 88 U/L 40-150 (BEAKER) (test uspe=254) BILIRUBIN TOTAL (BEAKER) 1.6 mg/dL 0.2-1.2 (test hrfj=641) SODIUM (BEAKER) (test 140 meq/L 136-145 buuc=357) POTASSIUM (BEAKER) (test 3.8 meq/L 3.5-5.1 hpna=071) CHLORIDE (BEAKER) (test 100 meq/L 98-107 zndw=540) CO2 (BEAKER) (test 36 meq/L 22-29 voux=922) BLOOD UREA NITROGEN 16 mg/dL 7-21 (BEAKER) (test sqow=098) CREATININE (BEAKER) (test 1.37 mg/dL 0.57-1.25 ndrc=952) GLUCOSE RANDOM (BEAKER) 159 mg/dL 70-105 (test nrps=904) CALCIUM (BEAKER) (test 8.4 mg/dL 8.4-10.2 zqzp=824) AST (SGOT) (BEAKER) (test 26 U/L 5-34 alxh=685) ALT (SGPT) (BEAKER) (test 10 U/L 6-55 ammz=662) EGFR (BEAKER) (test 39 mL/min/1.73 sq m ESTIMATED GFR IS NOT iwgt=0636) ACCURATE CREATININE CLEARANCE IN PREDICTING GLOMERULAR FILTRATION RATE. ESTIMATED GFR IS NOT APPLICABLE FOR DIALYSIS PATIENTS. CALCIUM, [id number] 05:11:00 Test Item Value Reference Range Comments CALCIUM IONIZED (BEAKER) (test jepn=830) 0.99 mmol/L 1.12-1.27 PH, BLOOD (BEAKER) (test cxxh=2858) 7.57 CBC W/PLT COUNT & AUTO [id number] 05:04:00 Test Item Value Reference Range Comments WHITE BLOOD CELL COUNT (BEAKER) (test bbol=743) 4.6 K/ L 3.5-10.5 RED BLOOD CELL COUNT (BEAKER) (test ffdn=122) 2.81 M/ L 3.93-5.22 HEMOGLOBIN (BEAKER) (test ndiy=738) 7.8 GM/DL 11.2-15.7 HEMATOCRIT (BEAKER) (test apfv=380) 24.6 % 34.1-44.9 MEAN CORPUSCULAR VOLUME (BEAKER) (test cvco=432) 87.5 fL 79.4-94.8 MEAN CORPUSCULAR HEMOGLOBIN (BEAKER) (test 27.8 pg 25.6-32.2 liyc=955) MEAN CORPUSCULAR HEMOGLOBIN CONC (BEAKER) (test 31.7 GM/DL 32.2-35.5 gvnk=232) RED CELL DISTRIBUTION WIDTH (BEAKER) (test 17.2 % 11.7-14.4 dcco=074) PLATELET COUNT (BEAKER) (test ubod=681) 129 K/CU MM 150-450 MEAN PLATELET VOLUME (BEAKER) (test huko=028) 9.0 fL 9.4-12.3 NUCLEATED RED BLOOD CELLS (BEAKER) (test 0 /100 WBC 0-0 elis=269) NEUTROPHILS RELATIVE PERCENT (BEAKER) (test 47 % vdxw=615) LYMPHOCYTES RELATIVE PERCENT (BEAKER) (test 29 % bdmk=267) MONOCYTES RELATIVE PERCENT (BEAKER) (test 13 % yqaw=484) EOSINOPHILS RELATIVE PERCENT (BEAKER) (test 11 % cpnv=954) BASOPHILS RELATIVE PERCENT (BEAKER) (test 1 % ximp=898) NEUTROPHILS ABSOLUTE COUNT (BEAKER) (test 2.17 K/ L 1.56-6.13 onhv=662) LYMPHOCYTES ABSOLUTE COUNT (BEAKER) (test 1.32 K/ L 1.18-3.74 kwbu=058) MONOCYTES ABSOLUTE COUNT (BEAKER) (test 0.58 K/ L 0.24-0.36 bihs=484) EOSINOPHILS ABSOLUTE COUNT (BEAKER) (test 0.49 K/ L 0.04-0.36 ctva=414) BASOPHILS ABSOLUTE COUNT (BEAKER) (test 0.06 K/ L 0.01-0.08 asuj=470) IMMATURE GRANULOCYTES-RELATIVE PERCENT (BEAKER) 0 % 0-1 (test jqhn=4615) POCT-GLUCOSE [id number] 23:10:00 Test Item Value Reference Range Comments POC-GLUCOSE METER (BEAKER) 239 mg/dL 70-110 TESTED AT [address] (test jdqo=7553) [place] [address] [id number] 19:02:00 Test Item Value Reference Range Comments SODIUM (BEAKER) (test pdkt=427) 138 meq/L 136-145 POTASSIUM (BEAKER) (test osvv=749) 3.7 meq/L 3.5-5.1 CHLORIDE (BEAKER) (test hnux=721) 100 meq/L 98-107 CO2 (BEAKER) (test oblf=498) 31 meq/L 22-29 Call [id number] with resultsPOCT-GLUCOSE [id number] 16:50:00 Test Item Value Reference Range Comments POC-GLUCOSE METER (BEAKER) 203 mg/dL 70-110 TESTED AT [address] (test ezkr=6272) [place] [address] POCT-GLUCOSE [id number] 12:49:00 Test Item Value Reference Range Comments POC-GLUCOSE METER (BEAKER) 219 mg/dL 70-110 TESTED AT [address] (test qjor=4402) [place] [address] ANTI-NUCLEAR ANTIBODY (QUE)[id number] 10:03:00 Test Item Value Reference Range Comments ANTI-NUCLEAR ANTIBODY (QUE) (BEAKER) (test Negative Negative ujkl=296) Test performed by IFA method.Test performed by IFA method.POCT-GLUCOSE [id number] 08:54:00 Test Item Value Reference Range Comments POC-GLUCOSE METER (BEAKER) 125 mg/dL 70-110 TESTED AT [address] (test plrx=1253) [place] [address] BASIC METABOLIC [id number] 07:41:00 Test Item Value Reference Range Comments SODIUM (BEAKER) (test 141 meq/L 136-145 kxsi=202) POTASSIUM (BEAKER) (test 3.0 meq/L 3.5-5.1 unbm=687) CHLORIDE (BEAKER) (test 101 meq/L 98-107 speg=042) CO2 (BEAKER) (test 35 meq/L 22-29 ojnn=064) BLOOD UREA NITROGEN 16 mg/dL 7-21 (BEAKER) (test cgcf=717) CREATININE (BEAKER) (test 1.31 mg/dL 0.57-1.25 ujcm=410) GLUCOSE RANDOM (BEAKER) 136 mg/dL 70-105 (test edhm=870) CALCIUM (BEAKER) (test 7.9 mg/dL 8.4-10.2 zwnn=216) EGFR (BEAKER) (test 41 mL/min/1.73 sq m ESTIMATED GFR IS NOT ldli=6560) ACCURATE CREATININE CLEARANCE IN PREDICTING GLOMERULAR FILTRATION RATE. ESTIMATED GFR IS NOT APPLICABLE FOR DIALYSIS PATIENTS. [id number] 07:32:00 Test Item Value Reference Range Comments PHOSPHORUS (BEAKER) (test ztkn=301) 2.0 mg/dL 2.3-4.7 [id number] 07:32:00 Test Item Value Reference Range Comments MAGNESIUM (BEAKER) (test isvm=595) 1.6 mg/dL 1.6-2.6 HEPATIC FUNCTION [id number] 07:32:00 Test Item Value Reference Range Comments TOTAL PROTEIN (BEAKER) (test ggan=212) 4.9 gm/dL 6.0-8.3 ALBUMIN (BEAKER) (test fomn=2540) 3.0 g/dL 3.5-5.0 BILIRUBIN TOTAL (BEAKER) (test oodv=393) 1.4 mg/dL 0.2-1.2 BILIRUBIN DIRECT (BEAKER) (test foat=151) 0.7 mg/dL 0.1-0.5 ALKALINE PHOSPHATASE (BEAKER) (test qwzn=365) 86 U/L 40-150 AST (SGOT) (BEAKER) (test hxgl=671) 25 U/L 5-34 ALT (SGPT) (BEAKER) (test asvg=541) 10 U/L 6-55 CBC W/PLT COUNT & AUTO [id number] 06:11:00 Test Item Value Reference Range Comments WHITE BLOOD CELL COUNT (BEAKER) (test hktg=348) 4.2 K/ L 3.5-10.5 RED BLOOD CELL COUNT (BEAKER) (test ihwm=318) 2.68 M/ L 3.93-5.22 HEMOGLOBIN (BEAKER) (test ehcx=649) 7.4 GM/DL 11.2-15.7 HEMATOCRIT (BEAKER) (test aphr=594) 23.5 % 34.1-44.9 MEAN CORPUSCULAR VOLUME (BEAKER) (test zfiv=802) 87.7 fL 79.4-94.8 MEAN CORPUSCULAR HEMOGLOBIN (BEAKER) (test 27.6 pg 25.6-32.2 hjhs=650) MEAN CORPUSCULAR HEMOGLOBIN CONC (BEAKER) (test 31.5 GM/DL 32.2-35.5 sxjc=062) RED CELL DISTRIBUTION WIDTH (BEAKER) (test 18.2 % 11.7-14.4 zfqn=112) PLATELET COUNT (BEAKER) (test vhdm=834) 140 K/CU MM 150-450 MEAN PLATELET VOLUME (BEAKER) (test ifqc=409) 10.3 fL 9.4-12.3 NUCLEATED RED BLOOD CELLS (BEAKER) (test 0 /100 WBC 0-0 hkyf=472) NEUTROPHILS RELATIVE PERCENT (BEAKER) (test 44 % vgzz=147) LYMPHOCYTES RELATIVE PERCENT (BEAKER) (test 33 % xmpd=474) MONOCYTES RELATIVE PERCENT (BEAKER) (test 12 % qhmp=430) EOSINOPHILS RELATIVE PERCENT (BEAKER) (test 10 % qlay=002) BASOPHILS RELATIVE PERCENT (BEAKER) (test 2 % doqd=383) NEUTROPHILS ABSOLUTE COUNT (BEAKER) (test 1.82 K/ L 1.56-6.13 mzoc=939) LYMPHOCYTES ABSOLUTE COUNT (BEAKER) (test 1.36 K/ L 1.18-3.74 cjhr=089) MONOCYTES ABSOLUTE COUNT (BEAKER) (test 0.48 K/ L 0.24-0.36 enzr=681) EOSINOPHILS ABSOLUTE COUNT (BEAKER) (test 0.42 K/ L 0.04-0.36 zbob=465) BASOPHILS ABSOLUTE COUNT (BEAKER) (test 0.07 K/ L 0.01-0.08 unpn=887) IMMATURE GRANULOCYTES-RELATIVE PERCENT (BEAKER) 0 % 0-1 (test coci=8431) PROTHROMBIN [id number] 05:31:00 Test Item Value Reference Range Comments PROTIME (BEAKER) (test wybq=676) 14.8 seconds 11.9-14.2 INR (BEAKER) (test vruu=221) 1.2 <=5.9 Effective 04/01/2019: PT Reference Range ChangeNew: 11.9-14.2 Previous: 11.7- 14.7RECOMMENDED COUMADIN/WARFARIN INR THERAPY RANGESSTANDARD DOSE: 2.0-3.0 Includes: PROPHYLAXIS for venous thrombosis, systemic embolization; TREATMENT for venous thrombosis and/or pulmonary embolus.HIGH RISK: Target INR is2.5-3.5 for patients wiht mechanical heart valves.BLOOD [id number] 02:01:00 Test Item Value Reference Range Comments CULTURE (BEAKER) (test lksn=6205) No growth in 5 days BLOOD [id number] 02:01:00 Test Item Value Reference Range Comments CULTURE (BEAKER) (test xcmi=8561) No growth in 5 days POCT-GLUCOSE [id number] 23:07:00 Test Item Value Reference Range Comments POC-GLUCOSE METER (BEAKER) 217 mg/dL 70-110 TESTED AT [address] (test dhve=1828) [place] [id number] POCT-GLUCOSE [id number] 17:54:00 Test Item Value Reference Range Comments POC-GLUCOSE METER (BEAKER) 138 mg/dL 70-110 TESTED AT [address] (test evrb=8891) [place] [id number] POCT-GLUCOSE [id number] 12:22:00 Test Item Value Reference Range Comments POC-GLUCOSE METER (BEAKER) 114 mg/dL 70-110 TESTED AT [address] (test ewyx=7153) [place] [id number] POCT-GLUCOSE [id number] 07:39:00 Test Item Value Reference Range Comments POC-GLUCOSE METER (BEAKER) 124 mg/dL 70-110 TESTED AT [address] (test oeaz=1554) [place] [id number] HEPATIC FUNCTION [id number] 05:49:00 Test Item Value Reference Range Comments TOTAL PROTEIN (BEAKER) (test aybh=607) 5.1 gm/dL 6.0-8.3 ALBUMIN (BEAKER) (test hoqv=8589) 2.9 g/dL 3.5-5.0 BILIRUBIN TOTAL (BEAKER) (test wcwp=556) 1.3 mg/dL 0.2-1.2 BILIRUBIN DIRECT (BEAKER) (test jtfr=109) 0.7 mg/dL 0.1-0.5 ALKALINE PHOSPHATASE (BEAKER) (test sdlj=634) 91 U/L 40-150 AST (SGOT) (BEAKER) (test zvoo=605) 30 U/L 5-34 ALT (SGPT) (BEAKER) (test xoqg=272) 10 U/L 6-55 BASIC METABOLIC [id number] 05:49:00 Test Item Value Reference Range Comments SODIUM (BEAKER) (test 140 meq/L 136-145 yrln=063) POTASSIUM (BEAKER) (test 3.2 meq/L 3.5-5.1 ssrv=663) CHLORIDE (BEAKER) (test 103 meq/L 98-107 ncxs=201) CO2 (BEAKER) (test 27 meq/L 22-29 qujr=521) BLOOD UREA NITROGEN 17 mg/dL 7-21 (BEAKER) (test kjin=279) CREATININE (BEAKER) (test 1.30 mg/dL 0.57-1.25 nkft=578) GLUCOSE RANDOM (BEAKER) 143 mg/dL 70-105 (test rter=498) CALCIUM (BEAKER) (test 7.9 mg/dL 8.4-10.2 ytjg=143) EGFR (BEAKER) (test 42 mL/min/1.73 sq m ESTIMATED GFR IS NOT jkza=0264) ACCURATE CREATININE CLEARANCE IN PREDICTING GLOMERULAR FILTRATION RATE. ESTIMATED GFR IS NOT APPLICABLE FOR DIALYSIS PATIENTS. PROTHROMBIN [id number] 05:32:00 Test Item Value Reference Range Comments PROTIME (BEAKER) (test zmwz=889) 14.7 seconds 11.9-14.2 INR (BEAKER) (test wyii=917) 1.2 <=5.9 Effective 04/01/2019: PT Reference Range ChangeNew: 11.9-14.2 Previous: 11.7- 14.7RECOMMENDED COUMADIN/WARFARIN INR THERAPY RANGESSTANDARD DOSE: 2.0-3.0 Includes: PROPHYLAXIS for venous thrombosis, systemic embolization; TREATMENT for venous thrombosis and/or pulmonary embolus.HIGH RISK: Target INR is2.5-3.5 for patients wiht mechanical heart valves.CBC W/PLT COUNT & AUTO [id number] 05:09:00 Test Item Value Reference Range Comments WHITE BLOOD CELL COUNT (BEAKER) (test ujyb=563) 4.7 K/ L 3.5-10.5 RED BLOOD CELL COUNT (BEAKER) (test ynoz=672) 2.86 M/ L 3.93-5.22 HEMOGLOBIN (BEAKER) (test mjlr=492) 7.9 GM/DL 11.2-15.7 HEMATOCRIT (BEAKER) (test dyrr=652) 25.3 % 34.1-44.9 MEAN CORPUSCULAR VOLUME (BEAKER) (test tefd=892) 88.5 fL 79.4-94.8 MEAN CORPUSCULAR HEMOGLOBIN (BEAKER) (test 27.6 pg 25.6-32.2 xyti=137) MEAN CORPUSCULAR HEMOGLOBIN CONC (BEAKER) (test 31.2 GM/DL 32.2-35.5 aibt=296) RED CELL DISTRIBUTION WIDTH (BEAKER) (test 17.4 % 11.7-14.4 ozxm=010) PLATELET COUNT (BEAKER) (test uzlw=583) 141 K/CU MM 150-450 MEAN PLATELET VOLUME (BEAKER) (test wzmz=386) 9.3 fL 9.4-12.3 NUCLEATED RED BLOOD CELLS (BEAKER) (test 0 /100 WBC 0-0 nemj=569) NEUTROPHILS RELATIVE PERCENT (BEAKER) (test 50 % fozb=136) LYMPHOCYTES RELATIVE PERCENT (BEAKER) (test 28 % klxk=069) MONOCYTES RELATIVE PERCENT (BEAKER) (test 11 % eeht=074) EOSINOPHILS RELATIVE PERCENT (BEAKER) (test 10 % saoo=997) BASOPHILS RELATIVE PERCENT (BEAKER) (test 1 % pvwr=996) NEUTROPHILS ABSOLUTE COUNT (BEAKER) (test 2.33 K/ L 1.56-6.13 jmpw=881) LYMPHOCYTES ABSOLUTE COUNT (BEAKER) (test 1.31 K/ L 1.18-3.74 tlsv=689) MONOCYTES ABSOLUTE COUNT (BEAKER) (test 0.51 K/ L 0.24-0.36 gfsc=610) EOSINOPHILS ABSOLUTE COUNT (BEAKER) (test 0.46 K/ L 0.04-0.36 ezzh=244) BASOPHILS ABSOLUTE COUNT (BEAKER) (test 0.06 K/ L 0.01-0.08 ejvx=170) IMMATURE GRANULOCYTES-RELATIVE PERCENT (BEAKER) 0 % 0-1 (test qbkk=7085) BLOOD GAS, [id number] 22:21:00 Test Item Value Reference Range Comments PH ARTERIAL (BEAKER) (test tdoi=707) 7.49 7.35-7.45 PCO2 ARTERIAL (BEAKER) (test cfgw=661) 43 mmHg 35-45 PO2 ARTERIAL (BEAKER) (test vgqe=936) 56 mmHg 80-90 O2 SATURATION ARTERIAL (BEAKER) (test vxsy=457) 92.5 % 96.0-97.0 HCO3 ARTERIAL (BEAKER) (test weno=718) 32 mmol/L 21-29 BASE EXCESS ARTERIAL (BEAKER) (test vhmc=802) 7.9 mmol/L -2.0-3.0 PATIENT TEMPERATURE (BEAKER) (test txez=0969) 35.8 C FIO2 (BEAKER) (test qkqn=4716) 21.0 % POCT-GLUCOSE [id number] 21:14:00 Test Item Value Reference Range Comments POC-GLUCOSE METER (BEAKER) 259 mg/dL 70-110 TESTED AT [address] (test theb=5232) [place] [address] BODY FLUID CULTURE + GRAM [id number] 18:00:00 Test Item Value Reference Range Comments CULTURE (BEAKER) (test qjrm=8837) No growth GRAM STAIN RESULT (BEAKER) (test No WBCs hnre=3651) GRAM STAIN RESULT (BEAKER) (test No organisms seen ykpg=99392) POCT-GLUCOSE [id number] 17:23:00 Test Item Value Reference Range Comments POC-GLUCOSE METER (BEAKER) 201 mg/dL 70-110 TESTED AT [address] (test ppni=4738) [place] [address] RAD, MANDIBLE, MIN 4 [id number] 15:00:00Reason for exam:->liver transplant evalShould this be [...] Martinez MDReport Verified Date/Time: 05/23/201915:00:10 Reading Location: [address] Transitional Reading Room CRYPTOCOCCAL [id number] 14:59:00 Test Item Value Reference Range Comments CRYPTOCOCCAL ANTIGEN, SERUM (BEAKER) (test Negative Negative, Interference aibm=7339) [id number] 14:45:00 Test Item Value Reference Range Comments RPR SCREEN (BEAKER) (test yzbq=235) Nonreactive Nonreactive CYTOMEGALOVIRUS ANTIBODY, [id number] 13:48:00 Test Item Value Reference Range Comments CYTOMEGALOVIRUS, IGG (BEAKER) (test lkef=0456) Positive Negative, Equivocal CMV IgG Result Interpretation: </=0.8 Al Negative 0.9-1.0 Al Equivocal &gt ;/=1.1 Al PositiveCYTOMEGALOVIRUS ANTIBODY, [id number] 13:48:00 Test Item Value Reference Range Comments CYTOMEGALOVIRUS IGM ANTIBODY (BEAKER) (test Negative Negative, Equivocal jbsz=3637) CMV IgM Result Interpretation: </=0.8 Al Negative 0.9-1.0 Al Equivocal >/=1.1 Al PositiveEBV ANTIBODY, [id number] 13:48:00 Test Item Value Reference Range Comments BERTRAND BOLES VIRAL CAPSID ANTIGEN IGG (BEAKER) Positive Negative, Equivocal (test szil=5706) Bertrand Boles Viral Capsid Antigen IgG Result Interpretation: </=0.8 Al Negative 0.9-1.0 Al Equivocal >/=1.1 Al PositiveEBV ANTIBODY, [id number] 13:48:00 Test Item Value Reference Range Comments BERTRAND BOLES VIRAL CAPSID ANTIGEN IGM (BEAKER) Negative Negative, Equivocal (test hoyx=0630) Bertrand Boles Viral Capsid Antigen IgM Result Interpretation: </=0.8 Al Negative 0.9-1.0 Al Equivocal >/=1.1 Al PositiveVARICELLA ZOSTER ANTIBODY , [id number] 13:48:00 Test Item Value Reference Range Comments VARICELLA ZOSTER IGG (AL) (BEAKER) (test bjxd=5866) 0.9 VARICELLA ZOSTER RESULT INTERPRETATIONS: <=0.8 Al Nonreactive: Presumed non-immune to VZV 0.9-1.0 Al Equivocal >=1.1 Al Reactive: Presumed immune to VZVRUBELLA ANTIBODY, [id number] 13:48:00 Test Item Value Reference Range Comments RUBELLA IGG QUANTITATION (AKER) (test oyxz=933) 12.0 IU/mL <8.0 Rubella IgG Result Interpretation: </=7.0 IU/mL Negative - Presumed non- immune 8.0 - 9.9 IU/mL Equivocal >=10.0 IU/mL Positive - Presumed immunePOCT-GLUCOSE [id number] 11:41:00 Test Item Value Reference Range Comments POC-GLUCOSE METER (BEAKER) 162 mg/dL 70-110 TESTED AT [address] (test sbwe=5617) [facility] [address] POCT-GLUCOSE [id number] 10:06:00 Test Item Value Reference Range Comments POC-GLUCOSE METER (BEAKER) 95 mg/dL 70-110 TESTED AT [address] (test akex=4975) [place] [id number] IRON, TIBC, % SAT. (WITHOUT FERRITIN)2019-05-23 07:32:00 Test Item Value Reference Range Comments IRON (BEAKER) (test hzcp=147) 30.0 ug/dL 40.0-160.0 TOTAL IRON BINDING CAPACITY (BEAKER) (test 143 ug/dL 250-450 obtl=949) IRON % SATURATION (2) (BEAKER) (test xcgt=2460) 21 % 20-55 [id number] 06:29:00 Test Item Value Reference Range Comments PHOSPHORUS (BEAKER) (test eycj=254) 1.9 mg/dL 2.3-4.7 [id number] 06:29:00 Test Item Value Reference Range Comments MAGNESIUM (BEAKER) (test yasw=127) 1.5 mg/dL 1.6-2.6 HEPATIC FUNCTION [id number] 06:29:00 Test Item Value Reference Range Comments TOTAL PROTEIN (BEAKER) (test zcbb=375) 5.2 gm/dL 6.0-8.3 ALBUMIN (BEAKER) (test ssha=8658) 3.0 g/dL 3.5-5.0 BILIRUBIN TOTAL (BEAKER) (test boel=792) 1.6 mg/dL 0.2-1.2 BILIRUBIN DIRECT (BEAKER) (test fobf=818) 0.8 mg/dL 0.1-0.5 ALKALINE PHOSPHATASE (BEAKER) (test hqev=974) 87 U/L 40-150 AST (SGOT) (BEAKER) (test fjsf=386) 24 U/L 5-34 ALT (SGPT) (BEAKER) (test ccff=967) 11 U/L 6-55 COMPREHENSIVE METABOLIC [id number] 06:29:00 Test Item Value Reference Range Comments TOTAL PROTEIN (BEAKER) 5.2 gm/dL 6.0-8.3 (test nuet=913) ALBUMIN (BEAKER) (test 3.0 g/dL 3.5-5.0 cxdj=0435) ALKALINE PHOSPHATASE 87 U/L 40-150 (BEAKER) (test aflb=301) BILIRUBIN TOTAL (BEAKER) 1.6 mg/dL 0.2-1.2 (test vkeg=172) SODIUM (BEAKER) (test 139 meq/L 136-145 zsdo=007) POTASSIUM (BEAKER) (test 3.3 meq/L 3.5-5.1 bqpa=453) CHLORIDE (BEAKER) (test 104 meq/L 98-107 sjyt=636) CO2 (BEAKER) (test 30 meq/L 22-29 sddy=748) BLOOD UREA NITROGEN 18 mg/dL 7-21 (BEAKER) (test rmkp=294) CREATININE (BEAKER) (test 1.41 mg/dL 0.57-1.25 qrds=852) GLUCOSE RANDOM (BEAKER) 102 mg/dL 70-105 (test qmjv=236) CALCIUM (BEAKER) (test 8.1 mg/dL 8.4-10.2 zhlo=418) AST (SGOT) (BEAKER) (test 24 U/L 5-34 xrfm=940) ALT (SGPT) (BEAKER) (test 11 U/L 6-55 hxuj=531) EGFR (BEAKER) (test 38 mL/min/1.73 sq m ESTIMATED GFR IS NOT zwwj=4460) ACCURATE CREATININE CLEARANCE IN PREDICTING GLOMERULAR FILTRATION RATE. ESTIMATED GFR IS NOT APPLICABLE FOR DIALYSIS PATIENTS. CBC W/PLT COUNT & AUTO [id number] 05:46:00 Test Item Value Reference Range Comments WHITE BLOOD CELL COUNT (BEAKER) (test uocn=023) 4.9 K/ L 3.5-10.5 RED BLOOD CELL COUNT (BEAKER) (test pylb=644) 2.83 M/ L 3.93-5.22 HEMOGLOBIN (BEAKER) (test lgzp=465) 8.0 GM/DL 11.2-15.7 HEMATOCRIT (BEAKER) (test wflr=331) 24.4 % 34.1-44.9 MEAN CORPUSCULAR VOLUME (BEAKER) (test skpw=458) 86.2 fL 79.4-94.8 MEAN CORPUSCULAR HEMOGLOBIN (BEAKER) (test 28.3 pg 25.6-32.2 cldl=784) MEAN CORPUSCULAR HEMOGLOBIN CONC (BEAKER) (test 32.8 GM/DL 32.2-35.5 tljm=370) RED CELL DISTRIBUTION WIDTH (BEAKER) (test 17.6 % 11.7-14.4 jscx=108) PLATELET COUNT (BEAKER) (test qwex=488) 147 K/CU MM 150-450 MEAN PLATELET VOLUME (BEAKER) (test eqkx=248) 9.1 fL 9.4-12.3 NUCLEATED RED BLOOD CELLS (BEAKER) (test 0 /100 WBC 0-0 xccm=139) NEUTROPHILS RELATIVE PERCENT (BEAKER) (test 51 % pnzm=943) LYMPHOCYTES RELATIVE PERCENT (BEAKER) (test 27 % gvrf=217) MONOCYTES RELATIVE PERCENT (BEAKER) (test 11 % ryre=207) EOSINOPHILS RELATIVE PERCENT (BEAKER) (test 10 % qunj=090) BASOPHILS RELATIVE PERCENT (BEAKER) (test 1 % atsy=789) NEUTROPHILS ABSOLUTE COUNT (BEAKER) (test 2.51 K/ L 1.56-6.13 fzsm=358) LYMPHOCYTES ABSOLUTE COUNT (BEAKER) (test 1.30 K/ L 1.18-3.74 dajf=848) MONOCYTES ABSOLUTE COUNT (BEAKER) (test 0.54 K/ L 0.24-0.36 lfsq=750) EOSINOPHILS ABSOLUTE COUNT (BEAKER) (test 0.48 K/ L 0.04-0.36 omjp=965) BASOPHILS ABSOLUTE COUNT (BEAKER) (test 0.06 K/ L 0.01-0.08 bhjt=354) IMMATURE GRANULOCYTES-RELATIVE PERCENT (BEAKER) 0 % 0-1 (test rrwf=2003) PROTHROMBIN [id number] 05:46:00 Test Item Value Reference Range Comments PROTIME (BEAKER) (test pbjn=627) 14.9 seconds 11.9-14.2 INR (BEAKER) (test uxxo=424) 1.2 <=5.9 Effective 04/01/2019: PT Reference Range ChangeNew: 11.9-14.2 Previous: 11.7- 14.7RECOMMENDED COUMADIN/WARFARIN INR THERAPY RANGESSTANDARD DOSE: 2.0-3.0 Includes: PROPHYLAXIS for venous thrombosis, systemic embolization; TREATMENT for venous thrombosis and/or pulmonary embolus.HIGH RISK: Target INR is2.5-3.5 for patients wiht mechanical heart valves.CALCIUM, [id number] 05:44:00 Test Item Value Reference Range Comments CALCIUM IONIZED (BEAKER) (test haje=162) 0.99 mmol/L 1.12-1.27 PH, BLOOD (BEAKER) (test cajw=3774) 7.48 HEMOGLOBIN [id number] 22:07:00 Test Item Value Reference Range Comments HEMOGLOBIN A1C (BEAKER) (test gccg=194) 8.1 % 4.3-6.1 POCT-GLUCOSE [id number] 21:38:00 Test Item Value Reference Range Comments POC-GLUCOSE METER (BEAKER) 213 mg/dL 70-110 TESTED AT [address] (test hhfr=2483) [facility] [address] POCT-GLUCOSE [id number] 18:07:00 Test Item Value Reference Range Comments POC-GLUCOSE METER (BEAKER) 212 mg/dL 70-110 TESTED AT [address] (test eedf=5619) [facility] [address] ALPHA FETOPROTEIN (AFP), TUMOR [id number] 17:50:00 Test Item Value Reference Range Comments ALPHA-FETOPROTEIN (BEAKER) (test kcto=0366) < ng/mL <10.0 HEPATITIS C [id number] 17:49:00 Test Item Value Reference Range Comments HEPATITIS C ANTIBODY (BEAKER) (test krft=172) Nonreactive Nonreactive VITAMIN D, [id number] 15:10:00 Test Item Value Reference Range Comments VITAMIN D 25-OH (BEAKER) (test nhgm=5181) < ng/mL 6.6-49.9 Effective 08/14/2017: Reference Range ChangeNew: 6.6-49.9 ng/mL Previous: 13.0 -47.8 ng/mLRecommended Vitamin D Target Range: 30.0-40.0 ng/mLHEPATITIS B SURFACE [id number] 15:10:00 Test Item Value Reference Range Comments HEPATITIS B SURFACE ANTIBODY (BEAKER) (test < mIU/mL <8.0 ysax=871) CARCINOEMBRYONIC ANTIGEN (CEA)2019-05-22 15:10:00 Test Item Value Reference Range Comments CARCINOEMBRYONIC ANTIGEN (BEAKER) (test ebyu=303) < ng/mL 0.0-5.0 HEPATITIS B CORE ANTIBODY, [id number] 15:08:00 Test Item Value Reference Range Comments HEPATITIS B CORE IGM ANTIBODY (BEAKER) (test Nonreactive Nonreactive rdny=976) HEPATITIS A ANTIBODY, [id number] 15:08:00 Test Item Value Reference Range Comments HEPATITIS A IGM ANTIBODY (BEAKER) (test Nonreactive Nonreactive jrau=465) HEPATITIS A ANTIBODY, [id number] 15:08:00 Test Item Value Reference Range Comments HEPATITIS A IGG ANTIBODY (BEAKER) (test Nonreactive Nonreactive buuc=8320) HEPATITIS B SURFACE [id number] 15:05:00 Test Item Value Reference Range Comments HEPATITIS B SURFACE ANTIGEN (2) (BEAKER) (test Nonreactive Nonreactive nqmg=4416) HEPATITIS B CORE ANTIBODY, [id number] 15:05:00 Test Item Value Reference Range Comments HEPATITIS B CORE TOTAL ANTIBODY (BEAKER) (test Nonreactive Nonreactive oopv=063) HIV-1 ANTIGEN WITH HIV-1/2 [id number] 15:05:00 Test Item Value Reference Range Comments HIV-1 ANTIGEN WITH HIV 1\\T\\2 ANTIBODY (2) Nonreactive Nonreactive (BEAKER) (test nyjl=8876) URIC [id number] 14:46:00 Test Item Value Reference Range Comments URIC ACID (BEAKER) (test ijzv=988) 5.7 mg/dL 2.6-7.2 LIPID [id number] 14:46:00 Test Item Value Reference Range Comments TRIGLYCERIDES (BEAKER) (test ffko=656) 71 mg/dL CHOLESTEROL (BEAKER) (test zlkg=100) 72 mg/dL HDL CHOLESTEROL (BEAKER) (test nruu=122) 20 mg/dL LDL CHOLESTEROL CALCULATED (BEAKER) (test lfsp=542) 38 mg/dL Triglyceride Reference Range: Low Risk <150 Borderline 150- 199 High Risk 200-499 Very High Risk >=500Cholesterol Reference Range: Low Risk <200 Borderline 200-239 High Risk > 240HDL Cholesterol Reference Range: Low Risk >=60 High Risk <40LDL Cholesterol Reference Range: Optimal <100 Near Optimal 100-129 Borderline 130-159 High 160-189 Very High >=190BILIRUBIN, [id number] 14:46:00 Test Item Value Reference Range Comments BILIRUBIN DIRECT (BEAKER) (test wwye=432) 0.8 mg/dL 0.1-0.5 GAMMA GLUTAMYL TRANSFERASE (GGT)2019-05-22 14:46:00 Test Item Value Reference Range Comments GAMMA GLUTAMYL TRANSFERASE (BEAKER) (test wcrd=539) 10 U/L 9-64 [id number] 14:45:00 Test Item Value Reference Range Comments ETHANOL (BEAKER) (test lexn=819) < mg/dL <=10 [id number] 14:44:00 Test Item Value Reference Range Comments TRANSFERRIN (BEAKER) (test ldfh=320) 109 mg/dL 174-382 IRON, TIBC, % SAT. (WITHOUT FERRITIN)2019-05-22 14:44:00 Test Item Value Reference Range Comments IRON (BEAKER) (test onsf=650) 40.0 ug/dL 40.0-160.0 TOTAL IRON BINDING CAPACITY (BEAKER) (test 136 ug/dL 250-450 awxa=335) IRON % SATURATION (2) (BEAKER) (test jlrc=2601) 29 % 20-55 [id number] 14:34:00 Test Item Value Reference Range Comments PARTIAL THROMBOPLASTIN TIME (DAKOTAH) (test 35.7 seconds 22.5-36.0 ftjl=462) [id number] 14:33:00 Test Item Value Reference Range Comments FIBRINOGEN LEVEL (DAKOTAH) (test dvur=053) 282 mg/dl 225-434 U/S, ABDOMINAL, WITH [id number] 14:09:00Reason for exam:->TIPS evaluationFINAL REPORT Ultrasound of [...] MDReport Verified Date/Time: 05/22/2019 14:09:52 Reading Location: [address] Radiology Reading Room Electronically signed by: MISSY MOMIN M.D. on 2018 02:09 PMPOCT-GLUCOSE [id number] 12:31:00 Test Item Value Reference Range Comments POC-GLUCOSE METER (BEAKER) 252 mg/dL 70-110 TESTED AT [facility] [address] [facility] (test fcww=5897) [facility] [address] COMPREHENSIVE METABOLIC [id number] 08:22:00 Test Item Value Reference Range Comments TOTAL PROTEIN (BEAKER) 4.8 gm/dL 6.0-8.3 (test udhv=585) ALBUMIN (BEAKER) (test 3.0 g/dL 3.5-5.0 tefw=3813) ALKALINE PHOSPHATASE 77 U/L 40-150 (BEAKER) (test jmab=079) BILIRUBIN TOTAL (BEAKER) 1.6 mg/dL 0.2-1.2 (test noyj=688) SODIUM (BEAKER) (test 141 meq/L 136-145 mvez=760) POTASSIUM (BEAKER) (test 3.1 meq/L 3.5-5.1 kzcp=849) CHLORIDE (BEAKER) (test 105 meq/L 98-107 xhnl=068) CO2 (BEAKER) (test 31 meq/L 22-29 orah=817) BLOOD UREA NITROGEN 18 mg/dL 7-21 (BEAKER) (test smzp=059) CREATININE (BEAKER) (test 1.50 mg/dL 0.57-1.25 zqkd=576) GLUCOSE RANDOM (BEAKER) 145 mg/dL 70-105 (test pdbs=490) CALCIUM (BEAKER) (test 7.9 mg/dL 8.4-10.2 itek=720) AST (SGOT) (BEAKER) (test 23 U/L 5-34 upuw=812) ALT (SGPT) (BEAKER) (test 7 U/L 6-55 knkf=796) EGFR (BEAKER) (test 35 mL/min/1.73 sq m ESTIMATED GFR IS NOT uqqb=3794) ACCURATE CREATININE CLEARANCE IN PREDICTING GLOMERULAR FILTRATION RATE. ESTIMATED GFR IS NOT APPLICABLE FOR DIALYSIS PATIENTS. [id number] 08:19:00 Test Item Value Reference Range Comments PHOSPHORUS (BEAKER) (test ygbz=122) 2.2 mg/dL 2.3-4.7 [id number] 08:19:00 Test Item Value Reference Range Comments MAGNESIUM (BEAKER) (test kmry=060) 1.5 mg/dL 1.6-2.6 HEPATIC FUNCTION [id number] 08:19:00 Test Item Value Reference Range Comments TOTAL PROTEIN (BEAKER) (test hazm=475) 4.8 gm/dL 6.0-8.3 ALBUMIN (BEAKER) (test ghsv=8273) 3.0 g/dL 3.5-5.0 BILIRUBIN TOTAL (BEAKER) (test hsfy=513) 1.6 mg/dL 0.2-1.2 BILIRUBIN DIRECT (BEAKER) (test fajy=092) 0.7 mg/dL 0.1-0.5 ALKALINE PHOSPHATASE (BEAKER) (test ovqq=510) 77 U/L 40-150 AST (SGOT) (BEAKER) (test znvx=093) 23 U/L 5-34 ALT (SGPT) (BEAKER) (test bciw=380) 7 U/L 6-55 POCT-GLUCOSE [id number] 08:08:00 Test Item Value Reference Range Comments POC-GLUCOSE METER (BEAKER) 154 mg/dL 70-110 TESTED AT [facility] [address] [place] [address] (test rqve=6397) [facility] [address] B-TYPE NATRIURETIC FACTOR (BNP)2019-05-22 06:18:00 Test Item Value Reference Range Comments B-TYPE NATRIURETIC PEPTIDE (BEAKER) (test 411 pg/mL 0-100 fqct=292) PROTHROMBIN [id number] 06:00:00 Test Item Value Reference Range Comments PROTIME (BEAKER) (test pkoc=604) 14.9 seconds 11.9-14.2 INR (BEAKER) (test meqo=590) 1.2 <=5.9 Effective 04/01/2019: PT Reference Range ChangeNew: 11.9-14.2 Previous: 11.7- 14.7RECOMMENDED COUMADIN/WARFARIN INR THERAPY RANGESSTANDARD DOSE: 2.0-3.0 Includes: PROPHYLAXIS for venous thrombosis, systemic embolization; TREATMENT for venous thrombosis and/or pulmonary embolus.HIGH RISK: Target INR is2.5-3.5 for patients wiht mechanical heart valves.CALCIUM, [id number] 05:48:00 Test Item Value Reference Range Comments CALCIUM IONIZED (BEAKER) (test noku=937) 1.04 mmol/L 1.12-1.27 PH, BLOOD (BEAKER) (test zorc=6985) 7.40 CBC W/PLT COUNT & AUTO [id number] 05:45:00 Test Item Value Reference Range Comments WHITE BLOOD CELL COUNT (BEAKER) (test ahoy=046) 4.1 K/ L 3.5-10.5 RED BLOOD CELL COUNT (BEAKER) (test chya=276) 2.71 M/ L 3.93-5.22 HEMOGLOBIN (BEAKER) (test pugv=842) 7.4 GM/DL 11.2-15.7 HEMATOCRIT (BEAKER) (test kese=727) 23.6 % 34.1-44.9 MEAN CORPUSCULAR VOLUME (BEAKER) (test vybk=006) 87.1 fL 79.4-94.8 MEAN CORPUSCULAR HEMOGLOBIN (BEAKER) (test 27.3 pg 25.6-32.2 pyjl=513) MEAN CORPUSCULAR HEMOGLOBIN CONC (BEAKER) (test 31.4 GM/DL 32.2-35.5 msgh=847) RED CELL DISTRIBUTION WIDTH (BEAKER) (test 17.2 % 11.7-14.4 bvfa=351) PLATELET COUNT (BEAKER) (test jgku=728) 126 K/CU MM 150-450 MEAN PLATELET VOLUME (BEAKER) (test rhri=982) 9.2 fL 9.4-12.3 NUCLEATED RED BLOOD CELLS (BEAKER) (test 0 /100 WBC 0-0 skng=064) NEUTROPHILS RELATIVE PERCENT (BEAKER) (test 49 % jike=158) LYMPHOCYTES RELATIVE PERCENT (BEAKER) (test 29 % gfeq=208) MONOCYTES RELATIVE PERCENT (BEAKER) (test 12 % rdrf=122) EOSINOPHILS RELATIVE PERCENT (BEAKER) (test 8 % mygu=575) BASOPHILS RELATIVE PERCENT (BEAKER) (test 1 % dcpq=578) NEUTROPHILS ABSOLUTE COUNT (BEAKER) (test 2.03 K/ L 1.56-6.13 ohsd=954) LYMPHOCYTES ABSOLUTE COUNT (BEAKER) (test 1.21 K/ L 1.18-3.74 vgbn=448) MONOCYTES ABSOLUTE COUNT (BEAKER) (test 0.51 K/ L 0.24-0.36 wado=211) EOSINOPHILS ABSOLUTE COUNT (BEAKER) (test 0.34 K/ L 0.04-0.36 uifp=995) BASOPHILS ABSOLUTE COUNT (BEAKER) (test 0.04 K/ L 0.01-0.08 gbuu=056) IMMATURE GRANULOCYTES-RELATIVE PERCENT (BEAKER) 0 % 0-1 (test mdnh=0168) POCT-GLUCOSE [id number] 21:52:00 Test Item Value Reference Range Comments POC-GLUCOSE METER (BEAKER) 241 mg/dL 70-110 TESTED AT [address] (test rfcj=1227) [place] [address] POCT-GLUCOSE [id number] 17:36:00 Test Item Value Reference Range Comments POC-GLUCOSE METER (BEAKER) 291 mg/dL 70-110 TESTED AT [address] (test xdjw=1351) [place] [id number] BODY FLUID CELL COUNT WITH [id number] 13:52:00 Test Item Value Reference Range Comments APPEARANCE FLUID (BEAKER) (test jjxv=419) Clear Clear COLOR FLUID (BEAKER) (test otkj=899) Yellow Colorless, Straw RBC FLUID (BEAKER) (test fzzi=629) 1815 /cu mm <=1 ADJUSTED WBC FLUID (BEAKER) (test iysn=6249) 79 /cu mm <=5 LINING CELLS (BEAKER) (test usrs=3352) 14 /cu mm <=1 NEUTROPHILS FLUID (BEAKER) (test xjtu=9985) 0 % LYMPHS FLUID (BEAKER) (test lxno=986) 25 % MONO/MACROPHAGE FLUID (BEAKER) (test yzmc=683) 74 % EOSINOPHILS FLUID (BEAKER) (test aqpr=766) 1 % BASO FLUID (BEAKER) (test ktfc=806) 0 % CONTAINER BODY FLUID (BEAKER) (test dmvq=1885) EDTA Tube HEMOGLOBIN [id number] 13:47:00 Test Item Value Reference Range Comments HEMOGLOBIN A1C (BEAKER) (test gxce=883) 8.4 % 4.3-6.1 POCT-GLUCOSE [id number] 11:56:00 Test Item Value Reference Range Comments POC-GLUCOSE METER (BEAKER) 223 mg/dL 70-110 TESTED AT [facility] [address] [facility] (test qyjp=5162) [facility] [address] POCT-GLUCOSE [id number] 08:31:00 Test Item Value Reference Range Comments POC-GLUCOSE METER (BEAKER) 257 mg/dL 70-110 TESTED AT [facility] [address] [facility] (test tysq=0767) [facility] [address] T4, [id number] 08:29:00 Test Item Value Reference Range Comments FREE T4 (BEAKER) (test rmsf=348) 0.41 ng/dL 0.70-1.48 BASIC METABOLIC [id number] 08:28:00 Test Item Value Reference Range Comments SODIUM (BEAKER) (test 136 meq/L 136-145 pvhb=660) POTASSIUM (BEAKER) (test 3.4 meq/L 3.5-5.1 ocjx=265) CHLORIDE (BEAKER) (test 104 meq/L 98-107 vdta=156) CO2 (BEAKER) (test 27 meq/L 22-29 xgil=047) BLOOD UREA NITROGEN 18 mg/dL 7-21 (BEAKER) (test wfak=442) CREATININE (BEAKER) (test 1.57 mg/dL 0.57-1.25 nmjs=941) GLUCOSE RANDOM (BEAKER) 235 mg/dL 70-105 (test biht=242) CALCIUM (BEAKER) (test 7.8 mg/dL 8.4-10.2 lmch=195) EGFR (BEAKER) (test 33 mL/min/1.73 sq m ESTIMATED GFR IS NOT zjhv=8181) ACCURATE CREATININE CLEARANCE IN PREDICTING GLOMERULAR FILTRATION RATE. ESTIMATED GFR IS NOT APPLICABLE FOR DIALYSIS PATIENTS. Specimen slightly [id number] 08:14:00 Test Item Value Reference Range Comments PHOSPHORUS (BEAKER) (test byzz=191) 2.4 mg/dL 2.3-4.7 [id number] 08:14:00 Test Item Value Reference Range Comments MAGNESIUM (BEAKER) (test zuus=631) 1.5 mg/dL 1.6-2.6 HEPATIC FUNCTION [id number] 08:14:00 Test Item Value Reference Range Comments TOTAL PROTEIN (BEAKER) (test fasq=198) 5.1 gm/dL 6.0-8.3 ALBUMIN (BEAKER) (test zikr=1972) 2.5 g/dL 3.5-5.0 BILIRUBIN TOTAL (BEAKER) (test ueys=846) 1.3 mg/dL 0.2-1.2 BILIRUBIN DIRECT (BEAKER) (test yjsm=976) 0.7 mg/dL 0.1-0.5 ALKALINE PHOSPHATASE (BEAKER) (test eant=371) 107 U/L 40-150 AST (SGOT) (BEAKER) (test nfoc=952) 27 U/L 5-34 ALT (SGPT) (BEAKER) (test tvkn=598) 11 U/L 6-55 Specimen slightly ictericTSH/FREE T4 IF [id number] 07:00:00 Test Item Value Reference Range Comments THYROID STIMULATING HORMONE (BEAKER) (test 59.61 uIU/mL 0.35-4.94 lrox=021) PROTHROMBIN [id number] 05:56:00 Test Item Value Reference Range Comments PROTIME (BEAKER) (test pkha=851) 14.3 seconds 11.9-14.2 INR (BEAKER) (test bxes=726) 1.2 <=5.9 Effective 04/01/2019: PT Reference Range ChangeNew: 11.9-14.2 Previous: 11.7- 14.7RECOMMENDED COUMADIN/WARFARIN INR THERAPY RANGESSTANDARD DOSE: 2.0-3.0 Includes: PROPHYLAXIS for venous thrombosis, systemic embolization; TREATMENT for venous thrombosis and/or pulmonary embolus.HIGH RISK: Target INR is2.5-3.5 for patients wiht mechanical heart valves.CALCIUM, [id number] 05:43:00 Test Item Value Reference Range Comments CALCIUM IONIZED (BEAKER) (test pgdd=225) 0.97 mmol/L 1.12-1.27 PH, BLOOD (BEAKER) (test yoto=4362) 7.45 CBC W/PLT COUNT & AUTO [id number] 05:21:00 Test Item Value Reference Range Comments WHITE BLOOD CELL COUNT (BEAKER) (test khbo=003) 5.5 K/ L 3.5-10.5 RED BLOOD CELL COUNT (BEAKER) (test vqbf=914) 3.06 M/ L 3.93-5.22 HEMOGLOBIN (BEAKER) (test xumk=736) 8.3 GM/DL 11.2-15.7 HEMATOCRIT (BEAKER) (test togp=272) 26.3 % 34.1-44.9 MEAN CORPUSCULAR VOLUME (BEAKER) (test pkvy=176) 85.9 fL 79.4-94.8 MEAN CORPUSCULAR HEMOGLOBIN (BEAKER) (test 27.1 pg 25.6-32.2 sarg=775) MEAN CORPUSCULAR HEMOGLOBIN CONC (BEAKER) (test 31.6 GM/DL 32.2-35.5 phfp=687) RED CELL DISTRIBUTION WIDTH (BEAKER) (test 17.2 % 11.7-14.4 ijab=509) PLATELET COUNT (BEAKER) (test avyn=203) 154 K/CU MM 150-450 MEAN PLATELET VOLUME (BEAKER) (test jcmg=880) 8.9 fL 9.4-12.3 NUCLEATED RED BLOOD CELLS (BEAKER) (test 0 /100 WBC 0-0 nkfy=775) NEUTROPHILS RELATIVE PERCENT (BEAKER) (test 61 % mvwq=755) LYMPHOCYTES RELATIVE PERCENT (BEAKER) (test 21 % qior=859) MONOCYTES RELATIVE PERCENT (BEAKER) (test 10 % ljwk=312) EOSINOPHILS RELATIVE PERCENT (BEAKER) (test 8 % znvg=783) BASOPHILS RELATIVE PERCENT (BEAKER) (test 1 % nszl=579) NEUTROPHILS ABSOLUTE COUNT (BEAKER) (test 3.33 K/ L 1.56-6.13 ljxr=466) LYMPHOCYTES ABSOLUTE COUNT (BEAKER) (test 1.13 K/ L 1.18-3.74 izil=030) MONOCYTES ABSOLUTE COUNT (BEAKER) (test 0.55 K/ L 0.24-0.36 cofs=243) EOSINOPHILS ABSOLUTE COUNT (BEAKER) (test 0.42 K/ L 0.04-0.36 ehan=929) BASOPHILS ABSOLUTE COUNT (BEAKER) (test 0.06 K/ L 0.01-0.08 rxwc=680) IMMATURE GRANULOCYTES-RELATIVE PERCENT (BEAKER) 0 % 0-1 (test vylj=7499) POCT-GLUCOSE [id number] 21:18:00 Test Item Value Reference Range Comments POC-GLUCOSE METER (BEAKER) 258 mg/dL 70-110 TESTED AT [address] (test xytu=6534) [facility] [address] POCT-GLUCOSE [id number] 17:42:00 Test Item Value Reference Range Comments POC-GLUCOSE METER (BEAKER) 232 mg/dL 70-110 TESTED AT [address] (test wnrq=2467) [facility] [address] POCT-GLUCOSE [id number] 12:51:00 Test Item Value Reference Range Comments POC-GLUCOSE METER (BEAKER) 206 mg/dL 70-110 TESTED AT [address] (test damy=7876) [facility] [address] POCT-GLUCOSE [id number] 07:53:00 Test Item Value Reference Range Comments POC-GLUCOSE METER (BEAKER) 219 mg/dL 70-110 TESTED AT [address] (test jayr=0534) [facility] [address] COMPREHENSIVE METABOLIC [id number] 06:52:00 Test Item Value Reference Range Comments TOTAL PROTEIN (BEAKER) 4.9 gm/dL 6.0-8.3 (test cwgh=013) ALBUMIN (BEAKER) (test 2.3 g/dL 3.5-5.0 pfsy=3194) ALKALINE PHOSPHATASE 119 U/L 40-150 (BEAKER) (test rren=079) BILIRUBIN TOTAL (BEAKER) 1.1 mg/dL 0.2-1.2 (test kbjd=000) SODIUM (BEAKER) (test 135 meq/L 136-145 jcuo=115) POTASSIUM (BEAKER) (test 4.0 meq/L 3.5-5.1 zlep=988) CHLORIDE (BEAKER) (test 105 meq/L 98-107 xrta=227) CO2 (BEAKER) (test 26 meq/L 22-29 tqsy=089) BLOOD UREA NITROGEN 18 mg/dL 7-21 (BEAKER) (test jkym=639) CREATININE (BEAKER) (test 1.38 mg/dL 0.57-1.25 dbee=771) GLUCOSE RANDOM (BEAKER) 234 mg/dL 70-105 (test jbzi=563) CALCIUM (BEAKER) (test 7.8 mg/dL 8.4-10.2 xyeq=460) AST (SGOT) (BEAKER) (test 29 U/L 5-34 phil=052) ALT (SGPT) (BEAKER) (test 13 U/L 6-55 uneq=798) EGFR (BEAKER) (test 39 mL/min/1.73 sq m ESTIMATED GFR IS NOT wqle=0837) ACCURATE CREATININE CLEARANCE IN PREDICTING GLOMERULAR FILTRATION RATE. ESTIMATED GFR IS NOT APPLICABLE FOR DIALYSIS PATIENTS. [id number] 06:47:00 Test Item Value Reference Range Comments PHOSPHORUS (BEAKER) (test vwgo=151) 2.0 mg/dL 2.3-4.7 [id number] 06:47:00 Test Item Value Reference Range Comments MAGNESIUM (BEAKER) (test swgl=644) 1.7 mg/dL 1.6-2.6 HEPATIC FUNCTION [id number] 06:47:00 Test Item Value Reference Range Comments TOTAL PROTEIN (BEAKER) (test onvu=756) 4.9 gm/dL 6.0-8.3 ALBUMIN (BEAKER) (test qgeu=5997) 2.3 g/dL 3.5-5.0 BILIRUBIN TOTAL (BEAKER) (test fopx=726) 1.1 mg/dL 0.2-1.2 BILIRUBIN DIRECT (BEAKER) (test mnno=233) 0.6 mg/dL 0.1-0.5 ALKALINE PHOSPHATASE (BEAKER) (test kpxy=705) 119 U/L 40-150 AST (SGOT) (BEAKER) (test otuw=306) 29 U/L 5-34 ALT (SGPT) (BEAKER) (test qgei=493) 13 U/L 6-55 CBC W/PLT COUNT & AUTO [id number] 06:32:00 Test Item Value Reference Range Comments WHITE BLOOD CELL COUNT (BEAKER) (test cogr=951) 5.3 K/ L 3.5-10.5 RED BLOOD CELL COUNT (BEAKER) (test zeiz=587) 3.05 M/ L 3.93-5.22 HEMOGLOBIN (BEAKER) (test xxps=201) 8.3 GM/DL 11.2-15.7 HEMATOCRIT (BEAKER) (test tmzt=202) 26.7 % 34.1-44.9 MEAN CORPUSCULAR VOLUME (BEAKER) (test sifg=649) 87.5 fL 79.4-94.8 MEAN CORPUSCULAR HEMOGLOBIN (BEAKER) (test 27.2 pg 25.6-32.2 mbvn=276) MEAN CORPUSCULAR HEMOGLOBIN CONC (BEAKER) (test 31.1 GM/DL 32.2-35.5 prof=128) RED CELL DISTRIBUTION WIDTH (BEAKER) (test 17.4 % 11.7-14.4 jhrr=241) PLATELET COUNT (BEAKER) (test ehra=959) 161 K/CU MM 150-450 MEAN PLATELET VOLUME (BEAKER) (test qvem=009) 8.8 fL 9.4-12.3 NUCLEATED RED BLOOD CELLS (BEAKER) (test 0 /100 WBC 0-0 snoh=559) NEUTROPHILS RELATIVE PERCENT (BEAKER) (test 52 % yade=867) LYMPHOCYTES RELATIVE PERCENT (BEAKER) (test 27 % asrb=398) MONOCYTES RELATIVE PERCENT (BEAKER) (test 9 % dwmv=563) EOSINOPHILS RELATIVE PERCENT (BEAKER) (test 10 % vlmv=284) BASOPHILS RELATIVE PERCENT (BEAKER) (test 2 % copn=584) NEUTROPHILS ABSOLUTE COUNT (BEAKER) (test 2.75 K/ L 1.56-6.13 zedd=493) LYMPHOCYTES ABSOLUTE COUNT (BEAKER) (test 1.42 K/ L 1.18-3.74 icxo=765) MONOCYTES ABSOLUTE COUNT (BEAKER) (test 0.48 K/ L 0.24-0.36 gfsb=782) EOSINOPHILS ABSOLUTE COUNT (BEAKER) (test 0.54 K/ L 0.04-0.36 fedl=721) BASOPHILS ABSOLUTE COUNT (BEAKER) (test 0.08 K/ L 0.01-0.08 koqs=256) IMMATURE GRANULOCYTES-RELATIVE PERCENT (BEAKER) 0 % 0-1 (test krgk=2332) B-TYPE NATRIURETIC FACTOR (BNP)2019-05-20 06:27:00 Test Item Value Reference Range Comments B-TYPE NATRIURETIC PEPTIDE (BEAKER) (test 274 pg/mL 0-100 ylxa=207) VANCOMYCIN LEVEL, [id number] 06:16:00 Test Item Value Reference Range Comments VANCOMYCIN TROUGH (BEAKER) (test nlxy=508) 5.8 ug/mL 10.0-20.0 [id number] 06:11:00 Test Item Value Reference Range Comments D-DIMER QUANTITATIVE (BEAKER) (test sjtr=377) 3.95 MG/L FEU <0.50 Intended Use: The [...] exclusion of thrombosis is within 95-100% range.CALCIUM, [id number] 06:04:00 Test Item Value Reference Range Comments CALCIUM IONIZED (BEAKER) (test fnlf=264) 1.06 mmol/L 1.12-1.27 PH, BLOOD (BEAKER) (test xguc=8320) 7.43 PROTHROMBIN [id number] 06:02:00 Test Item Value Reference Range Comments PROTIME (BEAKER) (test dzbg=610) 13.8 seconds 11.9-14.2 INR (BEAKER) (test ryma=400) 1.1 <=5.9 Effective 04/01/2019: PT Reference Range ChangeNew: 11.9-14.2 Previous: 11.7- 14.7RECOMMENDED COUMADIN/WARFARIN INR THERAPY RANGESSTANDARD DOSE: 2.0-3.0 Includes: PROPHYLAXIS for venous thrombosis, systemic embolization; TREATMENT for venous thrombosis and/or pulmonary embolus.HIGH RISK: Target INR is2.5-3.5 for patients wiht mechanical heart valves.TROPONIN [id number] 02:44:00 Test Item Value Reference Range Comments TROPONIN I (BEAKER) (test sply=717) 0.01 ng/mL 0.00-0.03 Troponin I (TnI) levels [...] acute neurological disease, and persistent tachyarrhythmia.PROTEIN, RANDOM [id number] 01:50:00 Test Item Value Reference Range Comments PROTEIN, URINE (BEAKER) (test ggpg=6314) 20 mg/dL 0-14 CREATININE, RANDOM [id number] 01:49:00 Test Item Value Reference Range Comments CREATININE URINE (BEAKER) (test vxwm=385) 184.6 mg/dL Reference Range: No NormalsRAD, CHEST, 1 VIEW, NON [id number] 01:49: 00Reason for exam:->anasarcaShould this be performed [...] Verified Date/Time: 05/20/2019 01:49 :05 Reading Location: [address] Reading Room POCT-GLUCOSE [id number] 00:36:00 Test Item Value Reference Range Comments POC-GLUCOSE METER (BEAKER) 326 mg/dL 70-110 TESTED AT [facility] [address] [place] [address] (test bxbw=2607) [facility] [address] URINALYSIS W/ [id number] 00:02:00 Test Item Value Reference Range Comments COLOR (BEAKER) (test nrgw=717) Yellow CLARITY (BEAKER) (test vvzz=861) Clear SPECIFIC GRAVITY UA (BEAKER) (test zphk=795) 1.020 1.001-1.035 PH UA (BEAKER) (test dszq=298) 5.5 5.0-8.0 PROTEIN UA (BEAKER) (test oikq=338) 20 mg/dL Negative GLUCOSE UA (BEAKER) (test fvqc=003) 300 mg/dL Negative KETONES UA (BEAKER) (test lcyh=094) Negative Negative BILIRUBIN UA (BEAKER) (test dgee=539) Negative Negative BLOOD UA (BEAKER) (test qchv=777) Negative Negative NITRITE UA (BEAKER) (test pney=731) Negative Negative LEUKOCYTE ESTERASE UA (BEAKER) (test vjeh=623) Small Negative UROBILINOGEN UA (BEAKER) (test kiqp=695) 2.0 mg/dL 0.2-1.0 RBC UA (BEAKER) (test fmys=807) 2 /HPF WBC UA (BEAKER) (test eprp=503) 2 /HPF MUCUS (BEAKER) (test msas=3192) Rare SQUAMOUS EPITHELIAL (BEAKER) (test jkts=125) 6 /HPF HYALINE CASTS (BEAKER) (test wgde=375) 5 /LPF SOURCE(BEAKER) (test cofn=4676) Urine, Voided T4, [id number] 22:29:00 Test Item Value Reference Range Comments FREE T4 (BEAKER) (test ncuu=033) 0.44 ng/dL 0.70-1.48 HEMOGLOBIN [id number] 22:15:00 Test Item Value Reference Range Comments HEMOGLOBIN A1C (BEAKER) (test ccok=793) 8.6 % 4.3-6.1 TSH/FREE T4 IF [id number] 21:43:00 Test Item Value Reference Range Comments THYROID STIMULATING HORMONE (BEAKER) (test 72.01 uIU/mL 0.35-4.94 uzdj=151) B-TYPE NATRIURETIC FACTOR (BNP)2019-05-19 21:29:00 Test Item Value Reference Range Comments B-TYPE NATRIURETIC PEPTIDE (BEAKER) (test 222 pg/mL 0-100 mhbw=036) PROTHROMBIN [id number] 21:26:00 Test Item Value Reference Range Comments PROTIME (BEAKER) (test pung=639) 13.6 seconds 11.9-14.2 INR (BEAKER) (test zsav=560) 1.1 <=5.9 Effective 04/01/2019: PT Reference Range ChangeNew: 11.9-14.2 Previous: 11.7- 14.7RECOMMENDED COUMADIN/WARFARIN INR THERAPY RANGESSTANDARD DOSE: 2.0-3.0 Includes: PROPHYLAXIS for venous thrombosis, systemic embolization; TREATMENT for venous thrombosis and/or pulmonary embolus.HIGH RISK: Target INR is2.5-3.5 for patients wiht mechanical heart valves.TROPONIN [id number] 21:26:00 Test Item Value Reference Range Comments TROPONIN I (BEAKER) (test kapw=752) < ng/mL 0.00-0.03 Troponin I (TnI) levels [...] failure, acidosis, acute neurological disease, and persistent tachyarrhythmia.[id number] 21:18:00 Test Item Value Reference Range Comments MAGNESIUM (BEAKER) (test 1.8 mg/dL 1.6-2.6 Specimen markedly hemolyzed karx=119) [id number] 21:18:00 Test Item Value Reference Range Comments PHOSPHORUS (BEAKER) (test 2.1 mg/dL 2.3-4.7 Specimen markedly hemolyzed npmq=846) BASIC METABOLIC [id number] 21:18:00 Test Item Value Reference Range Comments SODIUM (BEAKER) (test 136 meq/L 136-145 rtrl=052) POTASSIUM (BEAKER) (test 4.8 meq/L 3.5-5.1 Specimen markedly jqkj=916) hemolyzed CHLORIDE (BEAKER) (test 103 meq/L 98-107 defu=349) CO2 (BEAKER) (test 29 meq/L 22-29 ngda=258) BLOOD UREA NITROGEN 17 mg/dL 7-21 (BEAKER) (test ethq=689) CREATININE (BEAKER) (test 1.33 mg/dL 0.57-1.25 Specimen markedly tgwu=068) hemolyzed GLUCOSE RANDOM (BEAKER) 248 mg/dL 70-105 (test awfn=026) CALCIUM (BEAKER) (test 8.1 mg/dL 8.4-10.2 kkaw=492) EGFR (BEAKER) (test 41 mL/min/1.73 sq m ESTIMATED GFR IS NOT vzho=1455) ACCURATE CREATININE CLEARANCE IN PREDICTING GLOMERULAR FILTRATION RATE. ESTIMATED GFR IS NOT APPLICABLE FOR DIALYSIS PATIENTS. HEPATIC FUNCTION [id number] 21:18:00 Test Item Value Reference Range Comments TOTAL PROTEIN (BEAKER) (test 6.4 gm/dL 6.0-8.3 Specimen markedly hemolyzed cvha=848) ALBUMIN (BEAKER) (test 2.5 g/dL 3.5-5.0 Specimen markedly hemolyzed qkxo=9942) BILIRUBIN TOTAL (BEAKER) (test 1.3 mg/dL 0.2-1.2 Specimen markedly hemolyzed chxu=550) BILIRUBIN DIRECT (BEAKER) (test 0.3 mg/dL 0.1-0.5 Specimen markedly hemolyzed xrtb=387) ALKALINE PHOSPHATASE (BEAKER) 143 U/L 40-150 (test qnqv=606) AST (SGOT) (BEAKER) (test 61 U/L 5-34 Specimen markedly hemolyzed qtyy=967) ALT (SGPT) (BEAKER) (test 15 U/L 6-55 Specimen markedly hemolyzed fxhw=997) CBC W/PLT COUNT & AUTO [id number] 20:58:00 Test Item Value Reference Range Comments WHITE BLOOD CELL COUNT (BEAKER) (test ydoc=160) 6.0 K/ L 3.5-10.5 RED BLOOD CELL COUNT (BEAKER) (test bbki=447) 3.57 M/ L 3.93-5.22 HEMOGLOBIN (BEAKER) (test hxbo=461) 9.8 GM/DL 11.2-15.7 HEMATOCRIT (BEAKER) (test maza=160) 30.6 % 34.1-44.9 MEAN CORPUSCULAR VOLUME (BEAKER) (test rpok=703) 85.7 fL 79.4-94.8 MEAN CORPUSCULAR HEMOGLOBIN (BEAKER) (test 27.5 pg 25.6-32.2 urhq=304) MEAN CORPUSCULAR HEMOGLOBIN CONC (BEAKER) (test 32.0 GM/DL 32.2-35.5 cmwz=561) RED CELL DISTRIBUTION WIDTH (BEAKER) (test 17.4 % 11.7-14.4 wokl=702) PLATELET COUNT (BEAKER) (test rtru=974) 199 K/CU MM 150-450 MEAN PLATELET VOLUME (BEAKER) (test ttyg=377) 9.1 fL 9.4-12.3 NUCLEATED RED BLOOD CELLS (BEAKER) (test 0 /100 WBC 0-0 jkik=048) NEUTROPHILS RELATIVE PERCENT (BEAKER) (test 53 % pyqh=445) LYMPHOCYTES RELATIVE PERCENT (BEAKER) (test 27 % senh=772) MONOCYTES RELATIVE PERCENT (BEAKER) (test 8 % obmt=232) EOSINOPHILS RELATIVE PERCENT (BEAKER) (test 10 % sahc=962) BASOPHILS RELATIVE PERCENT (BEAKER) (test 1 % tpjq=594) NEUTROPHILS ABSOLUTE COUNT (BEAKER) (test 3.21 K/ L 1.56-6.13 btya=927) LYMPHOCYTES ABSOLUTE COUNT (BEAKER) (test 1.62 K/ L 1.18-3.74 vojg=660) MONOCYTES ABSOLUTE COUNT (BEAKER) (test 0.50 K/ L 0.24-0.36 saew=899) EOSINOPHILS ABSOLUTE COUNT (BEAKER) (test 0.62 K/ L 0.04-0.36 qaau=854) BASOPHILS ABSOLUTE COUNT (BEAKER) (test 0.08 K/ L 0.01-0.08 wvqd=779) IMMATURE GRANULOCYTES-RELATIVE PERCENT (BEAKER) 0 % 0-1 (test tvae=4555) BODY FLUID CULTURE + GRAM [id number] 13:44:00 Test Item Value Reference Range Comments CULTURE (BEAKER) (test mrqv=2198) No growth GRAM STAIN RESULT (BEAKER) (test <1+ White blood cells seen suqk=6214) GRAM STAIN RESULT (BEAKER) (test No organisms seen xpkb=89191) BODY FLUID CULTURE + GRAM [id number] 14:06:00 Test Item Value Reference Range Comments CULTURE (BEAKER) (test niqg=6462) No growth GRAM STAIN RESULT (BEAKER) (test No White blood cells seen xfoa=8246) GRAM STAIN RESULT (BEAKER) (test No organisms seen xfgn=05762) BASIC METABOLIC [id number] 08:41:00 Test Item Value Reference Range Comments SODIUM (BEAKER) (test 132 meq/L 136-145 vvlo=969) POTASSIUM (BEAKER) (test 4.4 meq/L 3.5-5.1 lyne=670) CHLORIDE (BEAKER) (test 100 meq/L 98-107 udci=589) CO2 (BEAKER) (test 25 meq/L 22-29 ckir=164) BLOOD UREA NITROGEN 53 mg/dL 7-21 (BEAKER) (test phag=934) CREATININE (BEAKER) (test 1.80 mg/dL 0.57-1.25 fmyw=118) GLUCOSE RANDOM (BEAKER) 211 mg/dL 70-105 (test emlw=235) CALCIUM (BEAKER) (test 9.0 mg/dL 8.4-10.2 pquh=454) EGFR (BEAKER) (test 29 mL/min/1.73 sq m ESTIMATED GFR IS NOT hzus=3314) ACCURATE CREATININE CLEARANCE IN PREDICTING GLOMERULAR FILTRATION RATE. ESTIMATED GFR IS NOT APPLICABLE FOR DIALYSIS PATIENTS. POCT-GLUCOSE [id number] 08:16:00 Test Item Value Reference Range Comments POC-GLUCOSE METER (BEAKER) 213 mg/dL 70-110 TESTED AT [facility] [address] [place] [address] (test zuql=3467) [facility] [address] HEPATIC FUNCTION [id number] 06:43:00 Test Item Value Reference Range Comments TOTAL PROTEIN (BEAKER) (test njwx=147) 5.7 gm/dL 6.0-8.3 ALBUMIN (BEAKER) (test fvok=2359) 4.2 g/dL 3.5-5.0 BILIRUBIN TOTAL (BEAKER) (test snzz=652) 1.6 mg/dL 0.2-1.2 BILIRUBIN DIRECT (BEAKER) (test ncqb=079) 0.8 mg/dL 0.1-0.5 ALKALINE PHOSPHATASE (BEAKER) (test qfhf=731) 95 U/L 40-150 AST (SGOT) (BEAKER) (test vukq=709) 71 U/L 5-34 ALT (SGPT) (BEAKER) (test rrgy=687) 68 U/L 6-55 POCT-GLUCOSE [id number] 22:00:00 Test Item Value Reference Range Comments POC-GLUCOSE METER (BEAKER) 341 mg/dL 70-110 Notified ALEXI ENNIS/TESTED AT [facility] (test dlrk=6950) [address] [place] [address] BODY FLUID CELL COUNT WITH [id number] 20:00:00 Test Item Value Reference Range Comments APPEARANCE FLUID (BEAKER) (test ubab=235) Hazy Clear COLOR FLUID (BEAKER) (test ezaq=551) Straw Colorless, Straw RBC FLUID (BEAKER) (test qbif=781) 4000 /cu mm <=1 ADJUSTED WBC FLUID (BEAKER) (test suzr=3836) 140 /cu mm <=5 LINING CELLS (BEAKER) (test qfgu=8734) 1 /cu mm <=1 NEUTROPHILS FLUID (BEAKER) (test hwdd=4857) 1 % LYMPHS FLUID (BEAKER) (test qrbx=248) 30 % MONO/MACROPHAGE FLUID (BEAKER) (test gpxz=881) 69 % EOSINOPHILS FLUID (BEAKER) (test cmzj=807) 0 % BASO FLUID (BEAKER) (test zzyd=713) 0 % CONTAINER BODY FLUID (BEAKER) (test aqcg=2704) EDTA Tube U/S, [id number] 16:42:00Reason for exam:->ascites limited 6 litersFINAL REPORT PROCEDURE: Ultrasound-guided paracentesis. INDICATION: 59-year-old woman with ascites. DESCRIPTION: After obtaining informed written consent, ultrasound scan of the abdomen identified ascites in the right lower quadrant. The overlying skin was prepped and draped in the usual, sterile fashion and local 2% lidocaine anesthesia was administered. A 5 [place] [employer] catheter was advanced into the peritoneal cavity and 6000 cc of serous fluid was removed. The catheter was removed without immediate complication. Samples were sent for analysis. IMPRESSION:Uncomplicated ultrasound-guided paracentesis with 6000 cc fluid removed. Signed: Antwon Bose MDReport Verified Date/Time: 02/24/2019 16:42:07 Reading Location: [address] Ultrasound Reading Room POCT-GLUCOSE [id number] 13:07:00 Test Item Value Reference Range Comments POC-GLUCOSE METER (BEAKER) 290 mg/dL 70-110 TESTED AT [address] (test krfz=2158) [facility] [address] PROTHROMBIN [id number] 12:01:00 Test Item Value Reference Range Comments PROTIME (BEAKER) (test ocba=442) 14.3 seconds 11.7-14.7 INR (BEAKER) (test kddl=090) 1.1 <=5.9 RECOMMENDED COUMADIN/WARFARIN INR THERAPY RANGESSTANDARD DOSE: 2.0 - 3.0 Includes: PROPHYLAXIS forvenous thrombosis, systemic embolization; TREATMENT for venous thrombosis and/or pulmonary embolus.HIGH RISK: Target INR is 2.5-3.5 for patients with mechanical heart valves.[id number] 12:01:00 Test Item Value Reference Range Comments PARTIAL THROMBOPLASTIN TIME (BEAKER) (test 32.5 seconds 22.5-36.0 fxpm=518) POCT-GLUCOSE [id number] 08:39:00 Test Item Value Reference Range Comments POC-GLUCOSE METER (BEAKER) 279 mg/dL 70-110 TESTED AT [facility] [address] (test emzy=3698) [place] [address] CALCIUM, [id number] 07:04:00 Test Item Value Reference Range Comments CALCIUM IONIZED (BEAKER) (test hozv=807) 1.08 mmol/L 1.12-1.27 PH, BLOOD (BEAKER) (test bnql=9926) 7.38 COMPREHENSIVE METABOLIC [id number] 05:59:00 Test Item Value Reference Range Comments TOTAL PROTEIN (BEAKER) 5.5 gm/dL 6.0-8.3 (test mnsn=594) ALBUMIN (BEAKER) (test 3.8 g/dL 3.5-5.0 wldy=5114) ALKALINE PHOSPHATASE 125 U/L 40-150 (BEAKER) (test bokj=570) BILIRUBIN TOTAL (BEAKER) 0.9 mg/dL 0.2-1.2 (test schc=765) SODIUM (BEAKER) (test 130 meq/L 136-145 ihmq=878) POTASSIUM (BEAKER) (test 4.0 meq/L 3.5-5.1 lrcp=076) CHLORIDE (BEAKER) (test 99 meq/L 98-107 qfvb=049) CO2 (BEAKER) (test 23 meq/L 22-29 pqjf=607) BLOOD UREA NITROGEN 51 mg/dL 7-21 (BEAKER) (test nbau=602) CREATININE (BEAKER) (test 2.07 mg/dL 0.57-1.25 galp=547) GLUCOSE RANDOM (BEAKER) 320 mg/dL 70-105 (test sihs=780) CALCIUM (BEAKER) (test 8.7 mg/dL 8.4-10.2 cvka=947) AST (SGOT) (BEAKER) (test 111 U/L 5-34 fcnq=253) ALT (SGPT) (BEAKER) (test 98 U/L 6-55 mwal=080) EGFR (BEAKER) (test 24 mL/min/1.73 sq m ESTIMATED GFR IS NOT hgyo=2574) ACCURATE CREATININE CLEARANCE IN PREDICTING GLOMERULAR FILTRATION RATE. ESTIMATED GFR IS NOT APPLICABLE FOR DIALYSIS PATIENTS. [id number] 05:58:00 Test Item Value Reference Range Comments PHOSPHORUS (BEAKER) (test axha=047) 2.1 mg/dL 2.3-4.7 [id number] 05:58:00 Test Item Value Reference Range Comments MAGNESIUM (BEAKER) (test sjfn=247) 2.3 mg/dL 1.6-2.6 HEPATIC FUNCTION [id number] 05:58:00 Test Item Value Reference Range Comments TOTAL PROTEIN (BEAKER) (test ukpj=796) 5.5 gm/dL 6.0-8.3 ALBUMIN (BEAKER) (test uigt=4539) 3.8 g/dL 3.5-5.0 BILIRUBIN TOTAL (BEAKER) (test zfvb=892) 0.9 mg/dL 0.2-1.2 BILIRUBIN DIRECT (BEAKER) (test odgs=289) 0.4 mg/dL 0.1-0.5 ALKALINE PHOSPHATASE (BEAKER) (test wmzt=829) 125 U/L 40-150 AST (SGOT) (BEAKER) (test wnpc=287) 111 U/L 5-34 ALT (SGPT) (BEAKER) (test xude=680) 98 U/L 6-55 CBC W/PLT COUNT & AUTO [id number] 05:29:00 Test Item Value Reference Range Comments WHITE BLOOD CELL COUNT (BEAKER) (test scne=583) 5.9 K/ L 3.5-10.5 RED BLOOD CELL COUNT (BEAKER) (test zppr=630) 3.00 M/ L 3.93-5.22 HEMOGLOBIN (BEAKER) (test dgng=007) 8.5 GM/DL 11.2-15.7 HEMATOCRIT (BEAKER) (test rrof=076) 25.3 % 34.1-44.9 MEAN CORPUSCULAR VOLUME (BEAKER) (test nxmq=508) 84.3 fL 79.4-94.8 MEAN CORPUSCULAR HEMOGLOBIN (BEAKER) (test 28.3 pg 25.6-32.2 smzr=004) MEAN CORPUSCULAR HEMOGLOBIN CONC (BEAKER) (test 33.6 GM/DL 32.2-35.5 ydpn=118) RED CELL DISTRIBUTION WIDTH (BEAKER) (test 14.8 % 11.7-14.4 xneq=709) PLATELET COUNT (BEAKER) (test jpcc=227) 146 K/CU MM 150-450 MEAN PLATELET VOLUME (BEAKER) (test jqzd=252) 10.1 fL 9.4-12.3 NUCLEATED RED BLOOD CELLS (BEAKER) (test 0 /100 WBC 0-0 ykzu=072) NEUTROPHILS RELATIVE PERCENT (BEAKER) (test 67 % pyiq=581) LYMPHOCYTES RELATIVE PERCENT (BEAKER) (test 16 % wjhc=015) MONOCYTES RELATIVE PERCENT (BEAKER) (test 10 % jaad=757) EOSINOPHILS RELATIVE PERCENT (BEAKER) (test 6 % hnug=198) BASOPHILS RELATIVE PERCENT (BEAKER) (test 1 % yegc=966) NEUTROPHILS ABSOLUTE COUNT (BEAKER) (test 3.94 K/ L 1.56-6.13 hpbl=892) LYMPHOCYTES ABSOLUTE COUNT (BEAKER) (test 0.96 K/ L 1.18-3.74 xbpv=933) MONOCYTES ABSOLUTE COUNT (BEAKER) (test 0.57 K/ L 0.24-0.36 brdk=389) EOSINOPHILS ABSOLUTE COUNT (BEAKER) (test 0.37 K/ L 0.04-0.36 xmxo=664) BASOPHILS ABSOLUTE COUNT (BEAKER) (test 0.03 K/ L 0.01-0.08 abgn=837) IMMATURE GRANULOCYTES-RELATIVE PERCENT (BEAKER) 0 % 0-1 (test rcfr=5909) POCT-GLUCOSE [id number] 21:01:00 Test Item Value Reference Range Comments POC-GLUCOSE METER (BEAKER) 371 mg/dL 70-110 Notified ALEXI ENNIS/TESTED AT [facility] (test kccy=2125) [address] [place] [address] POCT-GLUCOSE [id number] 17:30:00 Test Item Value Reference Range Comments POC-GLUCOSE METER (BEAKER) 389 mg/dL 70-110 TESTED AT [address] (test bvrd=9181) [facility] [address] POCT-GLUCOSE [id number] 08:50:00 Test Item Value Reference Range Comments POC-GLUCOSE METER (BEAKER) 303 mg/dL 70-110 TESTED AT [address] (test opod=5691) [facility] [address] POCT-GLUCOSE [id number] 08:27:00 Test Item Value Reference Range Comments POC-GLUCOSE METER (BEAKER) 342 mg/dL 70-110 Will Repeat Test/TESTED AT (test dgdy=6355) [facility] [address] [facility] [address] CALCIUM, [id number] 07:20:00 Test Item Value Reference Range Comments CALCIUM IONIZED (BEAKER) (test qrgz=841) 0.98 mmol/L 1.12-1.27 PH, BLOOD (BEAKER) (test xink=1842) 7.41 COMPREHENSIVE METABOLIC [id number] 07:05:00 Test Item Value Reference Range Comments TOTAL PROTEIN (BEAKER) 5.0 gm/dL 6.0-8.3 (test gufd=104) ALBUMIN (BEAKER) (test 3.3 g/dL 3.5-5.0 vmqq=0927) ALKALINE PHOSPHATASE 126 U/L 40-150 (BEAKER) (test kjgb=451) BILIRUBIN TOTAL (BEAKER) 1.2 mg/dL 0.2-1.2 (test xzhe=086) SODIUM (BEAKER) (test 128 meq/L 136-145 rglq=758) POTASSIUM (BEAKER) (test 4.1 meq/L 3.5-5.1 cgal=850) CHLORIDE (BEAKER) (test 98 meq/L 98-107 jeht=768) CO2 (BEAKER) (test 20 meq/L 22-29 rcjc=575) BLOOD UREA NITROGEN 43 mg/dL 7-21 (BEAKER) (test lvqt=651) CREATININE (BEAKER) (test 2.39 mg/dL 0.57-1.25 mbap=846) GLUCOSE RANDOM (BEAKER) 305 mg/dL 70-105 (test vqux=968) CALCIUM (BEAKER) (test 8.1 mg/dL 8.4-10.2 ewli=166) AST (SGOT) (BEAKER) (test 173 U/L 5-34 rjzl=774) ALT (SGPT) (BEAKER) (test 143 U/L 6-55 ynrf=257) EGFR (BEAKER) (test 21 mL/min/1.73 sq m ESTIMATED GFR IS NOT fvvo=4423) ACCURATE CREATININE CLEARANCE IN PREDICTING GLOMERULAR FILTRATION RATE. ESTIMATED GFR IS NOT APPLICABLE FOR DIALYSIS PATIENTS. [id number] 06:56:00 Test Item Value Reference Range Comments PHOSPHORUS (BEAKER) (test cssf=469) 2.5 mg/dL 2.3-4.7 [id number] 06:56:00 Test Item Value Reference Range Comments MAGNESIUM (BEAKER) (test qgcc=503) 1.9 mg/dL 1.6-2.6 HEPATIC FUNCTION [id number] 06:56:00 Test Item Value Reference Range Comments TOTAL PROTEIN (BEAKER) (test fiez=903) 5.0 gm/dL 6.0-8.3 ALBUMIN (BEAKER) (test egnr=5526) 3.3 g/dL 3.5-5.0 BILIRUBIN TOTAL (BEAKER) (test ovrr=637) 1.2 mg/dL 0.2-1.2 BILIRUBIN DIRECT (BEAKER) (test ycby=210) 0.6 mg/dL 0.1-0.5 ALKALINE PHOSPHATASE (BEAKER) (test vsab=196) 126 U/L 40-150 AST (SGOT) (BEAKER) (test jgij=558) 173 U/L 5-34 ALT (SGPT) (BEAKER) (test pbil=185) 143 U/L 6-55 CBC W/PLT COUNT & AUTO [id number] 06:17:00 Test Item Value Reference Range Comments WHITE BLOOD CELL COUNT (BEAKER) (test lsym=981) 5.7 K/ L 3.5-10.5 RED BLOOD CELL COUNT (BEAKER) (test jbxk=878) 3.40 M/ L 3.93-5.22 HEMOGLOBIN (BEAKER) (test tmgz=051) 9.2 GM/DL 11.2-15.7 HEMATOCRIT (BEAKER) (test khdy=115) 29.1 % 34.1-44.9 MEAN CORPUSCULAR VOLUME (BEAKER) (test skcd=260) 85.6 fL 79.4-94.8 MEAN CORPUSCULAR HEMOGLOBIN (BEAKER) (test 27.1 pg 25.6-32.2 kcso=241) MEAN CORPUSCULAR HEMOGLOBIN CONC (BEAKER) (test 31.6 GM/DL 32.2-35.5 rxya=087) RED CELL DISTRIBUTION WIDTH (BEAKER) (test 14.7 % 11.7-14.4 uqtr=877) PLATELET COUNT (BEAKER) (test euet=531) 128 K/CU MM 150-450 MEAN PLATELET VOLUME (BEAKER) (test lreo=798) 10.3 fL 9.4-12.3 NUCLEATED RED BLOOD CELLS (BEAKER) (test 0 /100 WBC 0-0 fcmh=327) NEUTROPHILS RELATIVE PERCENT (BEAKER) (test 69 % eqzo=087) LYMPHOCYTES RELATIVE PERCENT (BEAKER) (test 15 % kuab=621) MONOCYTES RELATIVE PERCENT (BEAKER) (test 9 % mlsl=391) EOSINOPHILS RELATIVE PERCENT (BEAKER) (test 6 % buch=246) BASOPHILS RELATIVE PERCENT (BEAKER) (test 1 % pvvj=474) NEUTROPHILS ABSOLUTE COUNT (BEAKER) (test 3.91 K/ L 1.56-6.13 tzlt=553) LYMPHOCYTES ABSOLUTE COUNT (BEAKER) (test 0.86 K/ L 1.18-3.74 glpg=145) MONOCYTES ABSOLUTE COUNT (BEAKER) (test 0.51 K/ L 0.24-0.36 efut=287) EOSINOPHILS ABSOLUTE COUNT (BEAKER) (test 0.35 K/ L 0.04-0.36 tstp=038) BASOPHILS ABSOLUTE COUNT (BEAKER) (test 0.03 K/ L 0.01-0.08 vpxy=610) IMMATURE GRANULOCYTES-RELATIVE PERCENT (BEAKER) 0 % 0-1 (test yfvj=9008) BODY FLUID CELL COUNT WITH [id number] 17:06:00 Test Item Value Reference Range Comments APPEARANCE FLUID (BEAKER) (test nmiy=361) Hazy Clear COLOR FLUID (BEAKER) (test vxin=514) Yellow Colorless, Straw RBC FLUID (BEAKER) (test xpwp=681) 6000 /cu mm <=1 ADJUSTED WBC FLUID (BEAKER) (test weyl=2663) 125 /cu mm <=5 LINING CELLS (BEAKER) (test kgzq=5531) 2 /cu mm <=1 NEUTROPHILS FLUID (BEAKER) (test jctr=4178) 6 % LYMPHS FLUID (BEAKER) (test tjcm=844) 21 % MONO/MACROPHAGE FLUID (BEAKER) (test xnpq=989) 73 % EOSINOPHILS FLUID (BEAKER) (test shyf=629) 0 % BASO FLUID (BEAKER) (test zxcj=335) 0 % CONTAINER BODY FLUID (BEAKER) (test ggbn=7437) EDTA Tube POCT-GLUCOSE [id number] 16:40:00 Test Item Value Reference Range Comments POC-GLUCOSE METER (BEAKER) 396 mg/dL 70-110 TESTED AT [facility] [address] (test kmoo=0014) [facility] [address] U/S, [id number] 16:12:00limit to 6 LReason for exam:->ascites, limit to 6 LFINAL REPORT Paracentesis dated 02/22/2019 Procedure: Ultrasound-guided paracentesis. Preprocedure diagnosis: Ascites Postprocedure diagnosis: Ascites Conscious sedation: None. Radiologist: Giovanni Haas M.D. Sausage Inspector: None Anesthesia: 1% Xylocaine mixed with sodium bicarbonate local anesthesia. Technique: After obtaining informed consent, ultrasound-guided paracentesis was performed under usual sterile technique. Using a 5 tristanian drainage catheter, puncture was made in the right lower quadrant abdomen. Approximately 6000 cc of serous fluid was removed. Patient tolerated the procedure well without complication. Complication: None Graft/ Implant: None Estimated Blood Loss: None Impression: Ultrasound-guided paracentesis. Signed: Giovanni Haas Verified Date/Time: 02/22/2019 16:12 :23 Reading Location: [facility] C013Y CT Body Reading Room RAD, CHEST, 1 VIEW, NON [id number] 12:22:00Reason for exam:->coughShould this be performed at [...] Verified Date/ Time: 02/22/2019 12:22:24 Reading Location: [facility] C013W Consult Reading Room POCT-GLUCOSE [id number] 07:55:00 Test Item Value Reference Range Comments POC-GLUCOSE METER (BEAKER) 317 mg/dL 70-110 TESTED AT [address] (test nbnb=0834) [facility] [address] POCT-GLUCOSE [id number] 07:24:00 Test Item Value Reference Range Comments POC-GLUCOSE METER (BEAKER) 386 mg/dL 70-110 Notified ALEXI ENNIS/TESTED AT [facility] (test dtac=3844) [address] [place] [address] POCT-GLUCOSE [id number] 07:24:00 Test Item Value Reference Range Comments POC-GLUCOSE METER (BEAKER) 295 mg/dL 70-110 TESTED AT [address] (test ysoo=1978) [facility] [address] POCT-GLUCOSE [id number] 07:24:00 Test Item Value Reference Range Comments POC-GLUCOSE METER (BEAKER) 256 mg/dL 70-110 TESTED AT [address] (test lflr=7540) [facility] [address] BASIC METABOLIC [id number] 06:50:00 Test Item Value Reference Range Comments SODIUM (BEAKER) (test 128 meq/L 136-145 wxuo=498) POTASSIUM (BEAKER) (test 4.0 meq/L 3.5-5.1 vbmy=571) CHLORIDE (BEAKER) (test 100 meq/L 98-107 aynk=508) CO2 (BEAKER) (test 21 meq/L 22-29 zqrl=944) BLOOD UREA NITROGEN 40 mg/dL 7-21 (BEAKER) (test euhz=730) CREATININE (BEAKER) (test 2.62 mg/dL 0.57-1.25 kcfb=754) GLUCOSE RANDOM (BEAKER) 351 mg/dL 70-105 (test ewqs=126) CALCIUM (BEAKER) (test 8.0 mg/dL 8.4-10.2 atrb=027) EGFR (BEAKER) (test 19 mL/min/1.73 sq m ESTIMATED GFR IS NOT dpla=0817) ACCURATE CREATININE CLEARANCE IN PREDICTING GLOMERULAR FILTRATION RATE. ESTIMATED GFR IS NOT APPLICABLE FOR DIALYSIS PATIENTS. [id number] 06:46:00 Test Item Value Reference Range Comments MAGNESIUM (BEAKER) (test semc=398) 1.9 mg/dL 1.6-2.6 BLOOD [id number] 20:01:00 Test Item Value Reference Range Comments CULTURE (BEAKER) (test utle=0030) No growth in 5 days BLOOD [id number] 20:01:00 Test Item Value Reference Range Comments CULTURE (BEAKER) (test xvgw=8388) No growth in 5 days POCT-GLUCOSE [id number] 08:39:00 Test Item Value Reference Range Comments POC-GLUCOSE METER (BEAKER) 300 mg/dL 70-110 TESTED AT [facility] [address] (test ephi=1960) [facility] [address] POCT-GLUCOSE [id number] 08:39:00 Test Item Value Reference Range Comments POC-GLUCOSE METER (BEAKER) 330 mg/dL 70-110 Notified ALEXI ENNIS/TESTED AT [facility] (test ymeu=1360) [address] [facility] [address] COMPREHENSIVE METABOLIC [id number] 08:25:00 Test Item Value Reference Range Comments TOTAL PROTEIN (BEAKER) 4.9 gm/dL 6.0-8.3 (test xlem=626) ALBUMIN (BEAKER) (test 3.3 g/dL 3.5-5.0 sipb=4288) ALKALINE PHOSPHATASE 129 U/L 40-150 (BEAKER) (test uvbk=057) BILIRUBIN TOTAL (BEAKER) 1.2 mg/dL 0.2-1.2 (test xbty=533) SODIUM (BEAKER) (test 130 meq/L 136-145 waeh=557) POTASSIUM (BEAKER) (test 4.5 meq/L 3.5-5.1 wcxn=014) CHLORIDE (BEAKER) (test 102 meq/L 98-107 ixdr=535) CO2 (BEAKER) (test 20 meq/L 22-29 vrji=643) BLOOD UREA NITROGEN 32 mg/dL 7-21 (BEAKER) (test yxqq=382) CREATININE (BEAKER) (test 2.28 mg/dL 0.57-1.25 nvdl=877) GLUCOSE RANDOM (BEAKER) 341 mg/dL 70-105 (test zubi=170) CALCIUM (BEAKER) (test 8.1 mg/dL 8.4-10.2 lbtp=329) AST (SGOT) (BEAKER) (test 851 U/L 5-34 hhmw=675) ALT (SGPT) (BEAKER) (test 345 U/L 6-55 qico=984) EGFR (BEAKER) (test 22 mL/min/1.73 sq m ESTIMATED GFR IS NOT sknl=8250) ACCURATE CREATININE CLEARANCE IN PREDICTING GLOMERULAR FILTRATION RATE. ESTIMATED GFR IS NOT APPLICABLE FOR DIALYSIS PATIENTS. [id number] 08:19:00 Test Item Value Reference Range Comments PHOSPHORUS (BEAKER) (test diva=927) 2.3 mg/dL 2.3-4.7 [id number] 08:19:00 Test Item Value Reference Range Comments MAGNESIUM (BEAKER) (test umlg=264) 1.9 mg/dL 1.6-2.6 CALCIUM, [id number] 07:20:00 Test Item Value Reference Range Comments CALCIUM IONIZED (BEAKER) (test hwyy=191) 0.98 mmol/L 1.12-1.27 PH, BLOOD (BEAKER) (test rmku=9084) 7.42 CBC W/PLT COUNT & AUTO [id number] 06:36:00 Test Item Value Reference Range Comments WHITE BLOOD CELL COUNT (BEAKER) (test auvd=834) 8.1 K/ L 3.5-10.5 RED BLOOD CELL COUNT (BEAKER) (test nykd=647) 3.43 M/ L 3.93-5.22 HEMOGLOBIN (BEAKER) (test zbvz=568) 9.2 GM/DL 11.2-15.7 HEMATOCRIT (BEAKER) (test rjxj=804) 29.3 % 34.1-44.9 MEAN CORPUSCULAR VOLUME (BEAKER) (test wbgq=916) 85.4 fL 79.4-94.8 MEAN CORPUSCULAR HEMOGLOBIN (BEAKER) (test 26.8 pg 25.6-32.2 ejjj=328) MEAN CORPUSCULAR HEMOGLOBIN CONC (BEAKER) (test 31.4 GM/DL 32.2-35.5 iyyc=206) RED CELL DISTRIBUTION WIDTH (BEAKER) (test 14.6 % 11.7-14.4 qmwd=283) PLATELET COUNT (BEAKER) (test dtak=640) 132 K/CU MM 150-450 MEAN PLATELET VOLUME (BEAKER) (test vgji=140) 9.3 fL 9.4-12.3 NUCLEATED RED BLOOD CELLS (BEAKER) (test 0 /100 WBC 0-0 smcz=349) NEUTROPHILS RELATIVE PERCENT (BEAKER) (test 77 % pqlq=345) LYMPHOCYTES RELATIVE PERCENT (BEAKER) (test 13 % bwcw=620) MONOCYTES RELATIVE PERCENT (BEAKER) (test 8 % xikw=360) EOSINOPHILS RELATIVE PERCENT (BEAKER) (test 2 % jtty=694) BASOPHILS RELATIVE PERCENT (BEAKER) (test 1 % mjes=853) NEUTROPHILS ABSOLUTE COUNT (BEAKER) (test 6.17 K/ L 1.56-6.13 otvv=157) LYMPHOCYTES ABSOLUTE COUNT (BEAKER) (test 1.02 K/ L 1.18-3.74 zlpi=939) MONOCYTES ABSOLUTE COUNT (BEAKER) (test 0.61 K/ L 0.24-0.36 cjrq=046) EOSINOPHILS ABSOLUTE COUNT (BEAKER) (test 0.18 K/ L 0.04-0.36 zxgo=253) BASOPHILS ABSOLUTE COUNT (BEAKER) (test 0.05 K/ L 0.01-0.08 yfpf=094) IMMATURE GRANULOCYTES-RELATIVE PERCENT (BEAKER) 1 % 0-1 (test zjba=6395) BASIC METABOLIC [id number] 19:24:00 Test Item Value Reference Range Comments SODIUM (BEAKER) (test 132 meq/L 136-145 cllw=103) POTASSIUM (BEAKER) (test 4.8 meq/L 3.5-5.1 nmsi=759) CHLORIDE (BEAKER) (test 103 meq/L 98-107 wqvc=508) CO2 (BEAKER) (test 20 meq/L 22-29 jvom=371) BLOOD UREA NITROGEN 30 mg/dL 7-21 (BEAKER) (test mjng=847) CREATININE (BEAKER) (test 1.85 mg/dL 0.57-1.25 qzao=929) GLUCOSE RANDOM (BEAKER) 297 mg/dL 70-105 (test lqyv=564) CALCIUM (BEAKER) (test 8.7 mg/dL 8.4-10.2 qvab=725) EGFR (BEAKER) (test 28 mL/min/1.73 sq m ESTIMATED GFR IS NOT sozk=3400) ACCURATE CREATININE CLEARANCE IN PREDICTING GLOMERULAR FILTRATION RATE. ESTIMATED GFR IS NOT APPLICABLE FOR DIALYSIS PATIENTS. Please draw [address] Quiroz at [phone] with results.Call [id number] 19:22:00 Test Item Value Reference Range Comments SODIUM (BEAKER) (test wddh=320) 132 meq/L 136-145 POTASSIUM (BEAKER) (test onob=119) 4.8 meq/L 3.5-5.1 CHLORIDE (BEAKER) (test czlh=958) 103 meq/L 98-107 CO2 (BEAKER) (test zpqw=206) 20 meq/L 22-29 Please draw [address] Page Dr[address] Quiroz at [phone] with results.Call [id number] 18:11:00 Test Item Value Reference Range Comments POC-GLUCOSE METER (BEAKER) 314 mg/dL 70-110 TESTED AT [address] (test vmaf=0569) [place] [id number] POCT-GLUCOSE [id number] 17:29:00 Test Item Value Reference Range Comments POC-GLUCOSE METER (BEAKER) 255 mg/dL 70-110 TESTED AT [address] (test vxtd=8071) [facility] [address] POCT-GLUCOSE [id number] 13:02:00 Test Item Value Reference Range Comments POC-GLUCOSE METER (BEAKER) 289 mg/dL 70-110 TESTED AT [address] (test oopr=3702) [place] [id number] BODY FLUID CULTURE + GRAM [id number] 12:08:00 Test Item Value Reference Range Comments CULTURE (BEAKER) (test njwg=6660) No growth GRAM STAIN RESULT (BEAKER) (test <1+ WBCs shyv=3642) GRAM STAIN RESULT (BEAKER) (test No organisms seen yhus=35900) SEAMUS [id number] 09:29:00Reason for exam:->cirrhosis/ portal hypertension , refractory [...] and a bleeding placement of a 10 [place] [employer] sheath from theright hepatic vein to the [...] 1 L of yellow fluid. The 5 [place] [employer] needle/catheter was inserted with real-time ultrasound guidance into the peritoneal cavity in the right lateral abdomen following sterile preparation. Following this, the sheath catheter was removed. CONCLUSION: Successful TIPS and paracentesis. Signed: Yulia Kaba MDReport Verified Date/Time: 02/20/2019 09:29:18 Reading Location : [place] [address] Angio Body Reading Room CALCIUM, [id number] 06:43:00 Test Item Value Reference Range Comments CALCIUM IONIZED (BEAKER) (test edia=093) 1.02 mmol/L 1.12-1.27 PH, BLOOD (BEAKER) (test kyhw=7466) 7.40 [id number] 06:12:00 Test Item Value Reference Range Comments PHOSPHORUS (BEAKER) (test wndr=268) 2.5 mg/dL 2.3-4.7 [id number] 06:12:00 Test Item Value Reference Range Comments MAGNESIUM (BEAKER) (test pqcj=592) 1.6 mg/dL 1.6-2.6 HEPATIC FUNCTION [id number] 06:12:00 Test Item Value Reference Range Comments TOTAL PROTEIN (BEAKER) (test ciuc=287) 5.3 gm/dL 6.0-8.3 ALBUMIN (BEAKER) (test zesy=1574) 3.6 g/dL 3.5-5.0 BILIRUBIN TOTAL (BEAKER) (test alqd=939) 1.2 mg/dL 0.2-1.2 BILIRUBIN DIRECT (BEAKER) (test ldte=883) 0.6 mg/dL 0.1-0.5 ALKALINE PHOSPHATASE (BEAKER) (test iyuf=159) 80 U/L 40-150 AST (SGOT) (BEAKER) (test dbzk=935) 99 U/L 5-34 ALT (SGPT) (BEAKER) (test ddqk=906) 52 U/L 6-55 COMPREHENSIVE METABOLIC [id number] 06:12:00 Test Item Value Reference Range Comments TOTAL PROTEIN (BEAKER) 5.3 gm/dL 6.0-8.3 (test itcs=439) ALBUMIN (BEAKER) (test 3.6 g/dL 3.5-5.0 elpf=8088) ALKALINE PHOSPHATASE 80 U/L 40-150 (BEAKER) (test gzwi=184) BILIRUBIN TOTAL (BEAKER) 1.2 mg/dL 0.2-1.2 (test gyrr=648) SODIUM (BEAKER) (test 133 meq/L 136-145 nkho=233) POTASSIUM (BEAKER) (test 5.4 meq/L 3.5-5.1 cwzf=366) CHLORIDE (BEAKER) (test 104 meq/L 98-107 aupz=267) CO2 (BEAKER) (test 22 meq/L 22-29 xxxz=255) BLOOD UREA NITROGEN 27 mg/dL 7-21 (BEAKER) (test tuyv=035) CREATININE (BEAKER) (test 1.58 mg/dL 0.57-1.25 mbuc=015) GLUCOSE RANDOM (BEAKER) 300 mg/dL 70-105 (test hoit=474) CALCIUM (BEAKER) (test 8.4 mg/dL 8.4-10.2 rkbu=353) AST (SGOT) (BEAKER) (test 99 U/L 5-34 bxvg=251) ALT (SGPT) (BEAKER) (test 52 U/L 6-55 jzxh=386) EGFR (BEAKER) (test 33 mL/min/1.73 sq m ESTIMATED GFR IS NOT wevx=8709) ACCURATE CREATININE CLEARANCE IN PREDICTING GLOMERULAR FILTRATION RATE. ESTIMATED GFR IS NOT APPLICABLE FOR DIALYSIS PATIENTS. PROTHROMBIN [id number] 05:57:00 Test Item Value Reference Range Comments PROTIME (BEAKER) (test ywtq=215) 16.4 seconds 11.7-14.7 INR (BEAKER) (test iutx=202) 1.3 <=5.9 RECOMMENDED COUMADIN/WARFARIN INR THERAPY RANGESSTANDARD DOSE: 2.0 - 3.0 Includes: PROPHYLAXIS forvenous thrombosis, systemic embolization; TREATMENT for venous thrombosis and/or pulmonary embolus.HIGH RISK: Target INR is 2.5-3.5 for patients with mechanical heart valves.CBC W/PLT COUNT & AUTO [id number] 05:54:00 Test Item Value Reference Range Comments WHITE BLOOD CELL COUNT (BEAKER) (test qopc=648) 7.9 K/ L 3.5-10.5 RED BLOOD CELL COUNT (BEAKER) (test djtq=531) 3.24 M/ L 3.93-5.22 HEMOGLOBIN (BEAKER) (test vhoj=955) 8.9 GM/DL 11.2-15.7 HEMATOCRIT (BEAKER) (test mctv=091) 28.0 % 34.1-44.9 MEAN CORPUSCULAR VOLUME (BEAKER) (test ttuv=702) 86.4 fL 79.4-94.8 MEAN CORPUSCULAR HEMOGLOBIN (BEAKER) (test 27.5 pg 25.6-32.2 fbnw=916) MEAN CORPUSCULAR HEMOGLOBIN CONC (BEAKER) (test 31.8 GM/DL 32.2-35.5 xydr=401) RED CELL DISTRIBUTION WIDTH (BEAKER) (test 14.4 % 11.7-14.4 ygls=185) PLATELET COUNT (BEAKER) (test ouhe=950) 132 K/CU MM 150-450 MEAN PLATELET VOLUME (BEAKER) (test lwep=858) 9.3 fL 9.4-12.3 NUCLEATED RED BLOOD CELLS (BEAKER) (test 0 /100 WBC 0-0 jhwc=175) NEUTROPHILS RELATIVE PERCENT (BEAKER) (test 83 % kxyq=797) LYMPHOCYTES RELATIVE PERCENT (BEAKER) (test 10 % rsde=834) MONOCYTES RELATIVE PERCENT (BEAKER) (test 7 % reng=464) EOSINOPHILS RELATIVE PERCENT (BEAKER) (test 0 % lnwa=591) BASOPHILS RELATIVE PERCENT (BEAKER) (test 0 % uowl=456) NEUTROPHILS ABSOLUTE COUNT (BEAKER) (test 6.55 K/ L 1.56-6.13 qzxg=688) LYMPHOCYTES ABSOLUTE COUNT (BEAKER) (test 0.77 K/ L 1.18-3.74 iawp=990) MONOCYTES ABSOLUTE COUNT (BEAKER) (test 0.55 K/ L 0.24-0.36 pulx=695) EOSINOPHILS ABSOLUTE COUNT (BEAKER) (test 0.00 K/ L 0.04-0.36 vwis=743) BASOPHILS ABSOLUTE COUNT (BEAKER) (test 0.02 K/ L 0.01-0.08 xktr=660) IMMATURE GRANULOCYTES-RELATIVE PERCENT (BEAKER) 0 % 0-1 (test gmjv=3229) POCT-GLUCOSE [id number] 19:01:00 Test Item Value Reference Range Comments POC-GLUCOSE METER (BEAKER) 301 mg/dL 70-110 TESTED AT [facility] [address] [place] [address] (test irvy=2888) [facility] [address] [address], ABDOMEN, WITHOUT [id number] 12:33:00FINAL REPORT ABDOMINAL CT DATED 02/19/2019 CLINICAL [...] [place] Verified Date/Time: 02/19/2019 12:33:54 Reading Location: [address] Body Reading Room Electronicallysigned by: GIOVANIN HAAS M.D. on 02/19/2019 12:33 PMBODY FLUID CULTURE + GRAM [id number] 12:08:00 Test Item Value Reference Range Comments CULTURE (BEAKER) (test nrmn=8082) No growth GRAM STAIN RESULT (BEAKER) (test <1+ WBCs gxfw=8661) GRAM STAIN RESULT (BEAKER) (test No organisms seen fclf=45482) POCT-GLUCOSE [id number] 09:38:00 Test Item Value Reference Range Comments POC-GLUCOSE METER (BEAKER) 274 mg/dL 70-110 TESTED AT [address] (test cpgw=1033) [facility] [address] CALCIUM, [id number] 06:56:00 Test Item Value Reference Range Comments CALCIUM IONIZED (BEAKER) (test nzsh=631) 1.05 mmol/L 1.12-1.27 PH, BLOOD (BEAKER) (test kjpd=2585) 7.40 [id number] 06:22:00 Test Item Value Reference Range Comments PHOSPHORUS (BEAKER) (test jxpe=468) 2.3 mg/dL 2.3-4.7 [id number] 06:22:00 Test Item Value Reference Range Comments MAGNESIUM (BEAKER) (test sttn=360) 1.7 mg/dL 1.6-2.6 HEPATIC FUNCTION [id number] 06:22:00 Test Item Value Reference Range Comments TOTAL PROTEIN (BEAKER) (test pmvr=879) 5.6 gm/dL 6.0-8.3 ALBUMIN (BEAKER) (test hsun=5080) 3.4 g/dL 3.5-5.0 BILIRUBIN TOTAL (BEAKER) (test tvhy=824) 0.9 mg/dL 0.2-1.2 BILIRUBIN DIRECT (BEAKER) (test mhey=480) 0.4 mg/dL 0.1-0.5 ALKALINE PHOSPHATASE (BEAKER) (test xzfn=961) 121 U/L 40-150 AST (SGOT) (BEAKER) (test iyhp=629) 28 U/L 5-34 ALT (SGPT) (BEAKER) (test ggrw=410) 12 U/L 6-55 COMPREHENSIVE METABOLIC [id number] 06:22:00 Test Item Value Reference Range Comments TOTAL PROTEIN (BEAKER) 5.6 gm/dL 6.0-8.3 (test fues=236) ALBUMIN (BEAKER) (test 3.4 g/dL 3.5-5.0 nuxd=6933) ALKALINE PHOSPHATASE 121 U/L 40-150 (BEAKER) (test kjrr=078) BILIRUBIN TOTAL (BEAKER) 0.9 mg/dL 0.2-1.2 (test vtad=258) SODIUM (BEAKER) (test 135 meq/L 136-145 douo=150) POTASSIUM (BEAKER) (test 4.5 meq/L 3.5-5.1 vblo=346) CHLORIDE (BEAKER) (test 105 meq/L 98-107 tpxt=305) CO2 (BEAKER) (test 22 meq/L 22-29 snqi=329) BLOOD UREA NITROGEN 29 mg/dL 7-21 (BEAKER) (test dien=779) CREATININE (BEAKER) (test 1.38 mg/dL 0.57-1.25 frmb=122) GLUCOSE RANDOM (BEAKER) 313 mg/dL 70-105 (test jspd=863) CALCIUM (BEAKER) (test 8.7 mg/dL 8.4-10.2 xyys=657) AST (SGOT) (BEAKER) (test 28 U/L 5-34 ywht=752) ALT (SGPT) (BEAKER) (test 12 U/L 6-55 uoan=992) EGFR (BEAKER) (test 39 mL/min/1.73 sq m ESTIMATED GFR IS NOT ahbw=6457) ACCURATE CREATININE CLEARANCE IN PREDICTING GLOMERULAR FILTRATION RATE. ESTIMATED GFR IS NOT APPLICABLE FOR DIALYSIS PATIENTS. PROTHROMBIN [id number] 06:15:00 Test Item Value Reference Range Comments PROTIME (BEAKER) (test kzsd=041) 14.0 seconds 11.7-14.7 INR (BEAKER) (test zdor=108) 1.1 <=5.9 RECOMMENDED COUMADIN/WARFARIN INR THERAPY RANGESSTANDARD DOSE: 2.0 - 3.0 Includes: PROPHYLAXIS forvenous thrombosis, systemic embolization; TREATMENT for venous thrombosis and/or pulmonary embolus.HIGH RISK: Target INR is 2.5-3.5 for patients with mechanical heart valves.CBC W/PLT COUNT & AUTO [id number] 05:57:00 Test Item Value Reference Range Comments WHITE BLOOD CELL COUNT (BEAKER) (test hkoo=959) 6.9 K/ L 3.5-10.5 RED BLOOD CELL COUNT (BEAKER) (test aqlx=191) 3.83 M/ L 3.93-5.22 HEMOGLOBIN (BEAKER) (test bdvj=377) 10.5 GM/DL 11.2-15.7 HEMATOCRIT (BEAKER) (test isng=495) 33.1 % 34.1-44.9 MEAN CORPUSCULAR VOLUME (BEAKER) (test iuon=685) 86.4 fL 79.4-94.8 MEAN CORPUSCULAR HEMOGLOBIN (BEAKER) (test 27.4 pg 25.6-32.2 xyub=230) MEAN CORPUSCULAR HEMOGLOBIN CONC (BEAKER) (test 31.7 GM/DL 32.2-35.5 qdze=646) RED CELL DISTRIBUTION WIDTH (BEAKER) (test 14.4 % 11.7-14.4 clxg=780) PLATELET COUNT (BEAKER) (test gqhs=560) 175 K/CU MM 150-450 MEAN PLATELET VOLUME (BEAKER) (test whbo=833) 9.9 fL 9.4-12.3 NUCLEATED RED BLOOD CELLS (BEAKER) (test 0 /100 WBC 0-0 eecy=088) NEUTROPHILS RELATIVE PERCENT (BEAKER) (test 73 % iljb=094) LYMPHOCYTES RELATIVE PERCENT (BEAKER) (test 16 % zfnh=697) MONOCYTES RELATIVE PERCENT (BEAKER) (test 7 % nwct=185) EOSINOPHILS RELATIVE PERCENT (BEAKER) (test 4 % ebrs=604) BASOPHILS RELATIVE PERCENT (BEAKER) (test 1 % wohg=533) NEUTROPHILS ABSOLUTE COUNT (BEAKER) (test 4.99 K/ L 1.56-6.13 udgi=047) LYMPHOCYTES ABSOLUTE COUNT (BEAKER) (test 1.09 K/ L 1.18-3.74 bkcj=434) MONOCYTES ABSOLUTE COUNT (BEAKER) (test 0.50 K/ L 0.24-0.36 ejte=162) EOSINOPHILS ABSOLUTE COUNT (BEAKER) (test 0.25 K/ L 0.04-0.36 iqvo=285) BASOPHILS ABSOLUTE COUNT (BEAKER) (test 0.04 K/ L 0.01-0.08 fxub=871) IMMATURE GRANULOCYTES-RELATIVE PERCENT (BEAKER) 0 % 0-1 (test dmsg=8531) POCT-GLUCOSE [id number] 23:05:00 Test Item Value Reference Range Comments POC-GLUCOSE METER (BEAKER) 412 mg/dL 70-110 Will Repeat Test/TESTED AT (test gbpj=3863) [address] [address] POCT-GLUCOSE [id number] 22:12:00 Test Item Value Reference Range Comments POC-GLUCOSE METER (BEAKER) 371 mg/dL 70-110 TESTED AT [address] (test yjjp=0975) [facility] [address] BODY FLUID CELL COUNT WITH [id number] 13:06:00 Test Item Value Reference Range Comments APPEARANCE FLUID (BEAKER) (test sudw=813) Slightly Hazy Clear COLOR FLUID (BEAKER) (test okti=375) Yellow Colorless, Straw RBC FLUID (BEAKER) (test jcpw=493) 252 /cu mm <=1 ADJUSTED WBC FLUID (BEAKER) (test kmrp=1292) 112 /cu mm <=5 LINING CELLS (BEAKER) (test lzwq=9504) 10 /cu mm <=1 NEUTROPHILS FLUID (BEAKER) (test ukgw=1384) 8 % LYMPHS FLUID (BEAKER) (test daya=086) 40 % MONO/MACROPHAGE FLUID (BEAKER) (test 43 % iiau=644) EOSINOPHILS FLUID (BEAKER) (test epii=082) 0 % BASO FLUID (BEAKER) (test oagf=757) 0 % CONTAINER BODY FLUID (BEAKER) (test EDTA Tube qpbn=4353) U/S, [id number] 10:21:00Limit 8 LReason for exam:->ascites, limit 8 [...] skin and deep soft tissues. A 5 [place] one-step catheter was inserted and removed from the peritoneal space and approximately 8.0 liters of clear yellow fluid was aspirated from the abdomen. There were no immediate complications. Impression: Successful ultrasound guided paracentesis with aspiration of 8.0 liters of fluid. Signed: Akil Chung MDReport Verified Date/ Time: 02/18/2019 10:21:08 Reading Location: [address] Ultrasound Reading Room [id number] 07:08:00 Test Item Value Reference Range Comments MAGNESIUM (BEAKER) (test ulnx=703) 1.7 mg/dL 1.6-2.6 HEPATIC FUNCTION [id number] 07:08:00 Test Item Value Reference Range Comments TOTAL PROTEIN (BEAKER) (test soaq=612) 5.4 gm/dL 6.0-8.3 ALBUMIN (BEAKER) (test vrxv=3351) 3.2 g/dL 3.5-5.0 BILIRUBIN TOTAL (BEAKER) (test fdrp=433) 0.8 mg/dL 0.2-1.2 BILIRUBIN DIRECT (BEAKER) (test rfyl=657) 0.4 mg/dL 0.1-0.5 ALKALINE PHOSPHATASE (BEAKER) (test uxag=708) 104 U/L 40-150 AST (SGOT) (BEAKER) (test yxwm=686) 20 U/L 5-34 ALT (SGPT) (BEAKER) (test bmir=101) 10 U/L 6-55 COMPREHENSIVE METABOLIC [id number] 07:08:00 Test Item Value Reference Range Comments TOTAL PROTEIN (BEAKER) 5.4 gm/dL 6.0-8.3 (test hdye=922) ALBUMIN (BEAKER) (test 3.2 g/dL 3.5-5.0 qjco=9847) ALKALINE PHOSPHATASE 104 U/L 40-150 (BEAKER) (test gvpk=018) BILIRUBIN TOTAL (BEAKER) 0.8 mg/dL 0.2-1.2 (test vgxg=208) SODIUM (BEAKER) (test 136 meq/L 136-145 lpxd=588) POTASSIUM (BEAKER) (test 4.3 meq/L 3.5-5.1 gyqo=250) CHLORIDE (BEAKER) (test 108 meq/L 98-107 xkvs=934) CO2 (BEAKER) (test 22 meq/L 22-29 bzkc=409) BLOOD UREA NITROGEN 31 mg/dL 7-21 (BEAKER) (test xrhp=946) CREATININE (BEAKER) (test 1.26 mg/dL 0.57-1.25 ompu=414) GLUCOSE RANDOM (BEAKER) 262 mg/dL 70-105 (test qtdn=001) CALCIUM (BEAKER) (test 8.5 mg/dL 8.4-10.2 hkpk=252) AST (SGOT) (BEAKER) (test 20 U/L 5-34 wmlv=887) ALT (SGPT) (BEAKER) (test 10 U/L 6-55 kntd=904) EGFR (BEAKER) (test 43 mL/min/1.73 sq m ESTIMATED GFR IS NOT dsfc=1073) ACCURATE CREATININE CLEARANCE IN PREDICTING GLOMERULAR FILTRATION RATE. ESTIMATED GFR IS NOT APPLICABLE FOR DIALYSIS PATIENTS. [id number] 07:07:00 Test Item Value Reference Range Comments PHOSPHORUS (BEAKER) (test hixr=488) 2.7 mg/dL 2.3-4.7 POCT-GLUCOSE [id number] 06:31:00 Test Item Value Reference Range Comments POC-GLUCOSE METER (BEAKER) 249 mg/dL 70-110 TESTED AT [facility] [address] [facility] (test lzoy=0184) [facility] [address] URINALYSIS W/ [id number] 06:17:00 Test Item Value Reference Range Comments COLOR (BEAKER) (test vhin=926) Yellow CLARITY (BEAKER) (test jgor=314) Clear SPECIFIC GRAVITY UA (BEAKER) (test eytt=207) 1.013 1.001-1.035 PH UA (BEAKER) (test zode=194) 5.0 5.0-8.0 PROTEIN UA (BEAKER) (test lzgy=274) Negative Negative GLUCOSE UA (BEAKER) (test axtr=139) 100 mg/dL Negative KETONES UA (BEAKER) (test pusa=119) Negative Negative BILIRUBIN UA (BEAKER) (test xkon=873) Negative Negative BLOOD UA (BEAKER) (test puhb=075) Negative Negative NITRITE UA (BEAKER) (test wybt=131) Negative Negative LEUKOCYTE ESTERASE UA (BEAKER) (test iauh=150) Large Negative UROBILINOGEN UA (BEAKER) (test exfq=486) 0.2 mg/dL 0.2-1.0 RBC UA (BEAKER) (test muzv=623) 2 /HPF WBC UA (BEAKER) (test rwum=026) 24 /HPF SQUAMOUS EPITHELIAL (BEAKER) (test zcgh=504) 14 /HPF HYALINE CASTS (BEAKER) (test nmud=963) 3 /LPF SOURCE(BEAKER) (test uyvb=9261) Urine, Voided [id number] 05:53:00 Test Item Value Reference Range Comments PARTIAL THROMBOPLASTIN TIME (BEAKER) (test 20.1 seconds 22.5-36.0 vxvo=504) CALCIUM, [id number] 05:50:00 Test Item Value Reference Range Comments CALCIUM IONIZED (BEAKER) (test xmsl=487) 1.00 mmol/L 1.12-1.27 PH, BLOOD (BEAKER) (test taer=8579) 7.43 PROTHROMBIN [id number] 04:54:00 Test Item Value Reference Range Comments PROTIME (BEAKER) (test yedd=784) 13.8 seconds 11.7-14.7 INR (BEAKER) (test ydoy=836) 1.0 <=5.9 RECOMMENDED COUMADIN/WARFARIN INR THERAPY RANGESSTANDARD DOSE: 2.0 - 3.0 Includes: PROPHYLAXIS forvenous thrombosis, systemic embolization; TREATMENT for venous thrombosis and/or pulmonary embolus.HIGH RISK: Target INR is 2.5-3.5 for patients with mechanical heart valves.CREATININE, RANDOM [id number] 04: 48:00 Test Item Value Reference Range Comments CREATININE URINE (BEAKER) (test hixa=650) 115.9 mg/dL Reference Range: No NormalsPROTEIN, RANDOM [id number] 04:48:00 Test Item Value Reference Range Comments PROTEIN, URINE (BEAKER) (test idtq=2230) 12 mg/dL 0-14 CBC W/PLT COUNT & AUTO [id number] 04:30:00 Test Item Value Reference Range Comments WHITE BLOOD CELL COUNT (BEAKER) (test zeuc=957) 5.2 K/ L 3.5-10.5 RED BLOOD CELL COUNT (BEAKER) (test eupr=063) 3.58 M/ L 3.93-5.22 HEMOGLOBIN (BEAKER) (test gchw=615) 9.8 GM/DL 11.2-15.7 HEMATOCRIT (BEAKER) (test dqjx=579) 31.6 % 34.1-44.9 MEAN CORPUSCULAR VOLUME (BEAKER) (test dzgz=955) 88.3 fL 79.4-94.8 MEAN CORPUSCULAR HEMOGLOBIN (BEAKER) (test 27.4 pg 25.6-32.2 dgbd=200) MEAN CORPUSCULAR HEMOGLOBIN CONC (BEAKER) (test 31.0 GM/DL 32.2-35.5 xjdx=338) RED CELL DISTRIBUTION WIDTH (BEAKER) (test 14.4 % 11.7-14.4 brjz=421) PLATELET COUNT (BEAKER) (test deic=869) 173 K/CU MM 150-450 MEAN PLATELET VOLUME (BEAKER) (test rvqc=260) 9.6 fL 9.4-12.3 NUCLEATED RED BLOOD CELLS (BEAKER) (test 0 /100 WBC 0-0 lacb=489) NEUTROPHILS RELATIVE PERCENT (BEAKER) (test 67 % dxab=262) LYMPHOCYTES RELATIVE PERCENT (BEAKER) (test 19 % quev=484) MONOCYTES RELATIVE PERCENT (BEAKER) (test 8 % xqgi=392) EOSINOPHILS RELATIVE PERCENT (BEAKER) (test 5 % ypnq=605) BASOPHILS RELATIVE PERCENT (BEAKER) (test 1 % lgxi=689) NEUTROPHILS ABSOLUTE COUNT (BEAKER) (test 3.43 K/ L 1.56-6.13 ndii=975) LYMPHOCYTES ABSOLUTE COUNT (BEAKER) (test 0.98 K/ L 1.18-3.74 irkn=588) MONOCYTES ABSOLUTE COUNT (BEAKER) (test 0.42 K/ L 0.24-0.36 sgzs=929) EOSINOPHILS ABSOLUTE COUNT (BEAKER) (test 0.26 K/ L 0.04-0.36 aceb=258) BASOPHILS ABSOLUTE COUNT (BEAKER) (test 0.04 K/ L 0.01-0.08 zpum=758) IMMATURE GRANULOCYTES-RELATIVE PERCENT (BEAKER) 0 % 0-1 (test abde=4399) U/S, ABDOMINAL, WITH [id number] 03:48:00Reason for exam:->TIPS workup , assess for [...] MDReport Verified Date/Time: 02/18/2019 03:48:21 Reading Location: [address] Neuro Reading Room Electronically signed by: Se SCHNEIDER 2018 03:48 AMPOCT-GLUCOSE [id number] 00:28:00 Test Item Value Reference Range Comments POC-GLUCOSE METER (BEAKER) 330 mg/dL 70-110 Will Repeat Test/TESTED AT (test lmoa=6646) [facility] [address] [facility] [address] BODY FLUID CELL COUNT WITH [id number] 18:02:00 Test Item Value Reference Range Comments APPEARANCE FLUID (BEAKER) (test rvjf=660) Clear Clear COLOR FLUID (BEAKER) (test brck=306) Yellow Colorless, Straw RBC FLUID (BEAKER) (test etkp=054) 20 /cu mm <=1 ADJUSTED WBC FLUID (BEAKER) (test rbnj=0606) 50 /cu mm <=5 LINING CELLS (BEAKER) (test viqh=3151) 0 /cu mm <=1 NEUTROPHILS FLUID (BEAKER) (test ockl=8648) 1 % LYMPHS FLUID (BEAKER) (test mbgs=829) 38 % MONO/MACROPHAGE FLUID (BEAKER) (test dxjf=888) 61 % EOSINOPHILS FLUID (BEAKER) (test vqny=356) 0 % BASO FLUID (BEAKER) (test ptvs=320) 0 % CONTAINER BODY FLUID (BEAKER) (test pxzd=3954) EDTA Tube U/S, [id number] 16:30:00limit volume to 8 LReason for exam:-> [...] MDReport Verified Date/Time: 02/17 16:30:42 Reading Location: [address] Ultrasound Reading Room POCT-GLUCOSE [id number] 09:48:00 Test Item Value Reference Range Comments POC-GLUCOSE METER (BEAKER) 198 mg/dL 70-110 TESTED AT [address] (test ttlp=0915) [facility] [address] BASIC METABOLIC [id number] 06:30:00 Test Item Value Reference Range Comments SODIUM (BEAKER) (test 137 meq/L 136-145 fgxw=348) POTASSIUM (BEAKER) (test 4.5 meq/L 3.5-5.1 vzlt=202) CHLORIDE (BEAKER) (test 107 meq/L 98-107 zlaa=242) CO2 (BEAKER) (test 24 meq/L 22-29 ztmu=525) BLOOD UREA NITROGEN 41 mg/dL 7-21 (BEAKER) (test hlkt=269) CREATININE (BEAKER) (test 1.48 mg/dL 0.57-1.25 kvie=829) GLUCOSE RANDOM (BEAKER) 200 mg/dL 70-105 (test dhrb=594) CALCIUM (BEAKER) (test 8.9 mg/dL 8.4-10.2 pdzv=978) EGFR (BEAKER) (test 36 mL/min/1.73 sq m ESTIMATED GFR IS NOT mhha=2903) ACCURATE CREATININE CLEARANCE IN PREDICTING GLOMERULAR FILTRATION RATE. ESTIMATED GFR IS NOT APPLICABLE FOR DIALYSIS PATIENTS. POCT-GLUCOSE [id number] 17:31:00 Test Item Value Reference Range Comments POC-GLUCOSE METER (BEAKER) 165 mg/dL 70-110 TESTED AT [facility] [address] [facility] (test mobn=8532) [facility] [address] U/S, [id number] 16:00:00Reason for exam:->ascites SOBFINAL REPORT PROCEDURE: Ultrasound-guided paracentesis. INDICATION: Ascites. DESCRIPTION: This paracentesis was performed by Lesley Parnell under the direct supervision of Thomas Hendrix. After obtaining informed written consent, ultrasound scan of the abdomen identified ascites in the right lower quadrant. The overlying skin was prepped and draped in the usual, sterile fashion andlocal 2% lidocaine anesthesia was administered. A 5 [place] catheter was advanced into the peritonealcavity and 6000 mL of clear yellow fluid was removed. The catheter was removed without immediate complication. Samples were sent for analysis. IMPRESSION: Uncomplicated ultrasound-guided paracentesis with 6000 mL fluid removed. Signed: Thomas Hendrix [facility] Verified Date/Time: 16:00:46 Reading Location: [address] Ultrasound Reading Room BODY FLUID CELL COUNT WITH [id number] 15:52:00 Test Item Value Reference Range Comments APPEARANCE FLUID (BEAKER) (test iema=333) Clear Clear COLOR FLUID (BEAKER) (test dwyn=772) Yellow Colorless, Straw RBC FLUID (BEAKER) (test evqv=767) 10 /cu mm <=1 ADJUSTED WBC FLUID (BEAKER) (test lcun=0260) 80 /cu mm <=5 LINING CELLS (BEAKER) (test ekhe=9584) 0 /cu mm <=1 NEUTROPHILS FLUID (BEAKER) (test zodc=0448) 5 % LYMPHS FLUID (BEAKER) (test lctf=310) 35 % MONO/MACROPHAGE FLUID (BEAKER) (test mbxd=973) 59 % EOSINOPHILS FLUID (BEAKER) (test syxp=770) 1 % BASO FLUID (BEAKER) (test ceku=589) 0 % CONTAINER BODY FLUID (BEAKER) (test eocn=6978) EDTA Tube BASIC METABOLIC [id number] 07:28:00 Test Item Value Reference Range Comments SODIUM (BEAKER) (test 134 meq/L 136-145 zkvg=186) POTASSIUM (BEAKER) (test 5.0 meq/L 3.5-5.1 xlgf=267) CHLORIDE (BEAKER) (test 107 meq/L 98-107 uttj=530) CO2 (BEAKER) (test 22 meq/L 22-29 psya=998) BLOOD UREA NITROGEN 46 mg/dL 7-21 (BEAKER) (test ktpm=241) CREATININE (BEAKER) (test 1.61 mg/dL 0.57-1.25 pwab=022) GLUCOSE RANDOM (BEAKER) 220 mg/dL 70-105 (test rlsw=303) CALCIUM (BEAKER) (test 9.0 mg/dL 8.4-10.2 vcab=167) EGFR (BEAKER) (test 33 mL/min/1.73 sq m ESTIMATED GFR IS NOT lyyd=5816) ACCURATE CREATININE CLEARANCE IN PREDICTING GLOMERULAR FILTRATION RATE. ESTIMATED GFR IS NOT APPLICABLE FOR DIALYSIS PATIENTS. HEPATIC FUNCTION [id number] 07:28:00 Test Item Value Reference Range Comments TOTAL PROTEIN (BEAKER) (test pmsb=714) 5.9 gm/dL 6.0-8.3 ALBUMIN (BEAKER) (test naca=4632) 3.0 g/dL 3.5-5.0 BILIRUBIN TOTAL (BEAKER) (test vnqc=933) 0.6 mg/dL 0.2-1.2 BILIRUBIN DIRECT (BEAKER) (test avak=136) 0.3 mg/dL 0.1-0.5 ALKALINE PHOSPHATASE (BEAKER) (test elhb=040) 154 U/L 40-150 AST (SGOT) (BEAKER) (test pemf=379) 22 U/L 5-34 ALT (SGPT) (BEAKER) (test pmvt=509) 12 U/L 6-55 [id number] 07:27:00 Test Item Value Reference Range Comments MAGNESIUM (BEAKER) (test hqby=888) 2.2 mg/dL 1.6-2.6 CBC W/PLT COUNT & AUTO [id number] 07:06:00 Test Item Value Reference Range Comments WHITE BLOOD CELL COUNT (BEAKER) (test dpka=246) 6.2 K/ L 3.5-10.5 RED BLOOD CELL COUNT (BEAKER) (test cysr=186) 3.62 M/ L 3.93-5.22 HEMOGLOBIN (BEAKER) (test wgqg=698) 9.8 GM/DL 11.2-15.7 HEMATOCRIT (BEAKER) (test oegx=833) 31.4 % 34.1-44.9 MEAN CORPUSCULAR VOLUME (BEAKER) (test mbeg=516) 86.7 fL 79.4-94.8 MEAN CORPUSCULAR HEMOGLOBIN (BEAKER) (test 27.1 pg 25.6-32.2 cwrz=732) MEAN CORPUSCULAR HEMOGLOBIN CONC (BEAKER) (test 31.2 GM/DL 32.2-35.5 uuil=035) RED CELL DISTRIBUTION WIDTH (BEAKER) (test 14.5 % 11.7-14.4 qrjf=082) PLATELET COUNT (BEAKER) (test vjxs=890) 198 K/CU MM 150-450 MEAN PLATELET VOLUME (BEAKER) (test ginu=951) 9.8 fL 9.4-12.3 NUCLEATED RED BLOOD CELLS (BEAKER) (test 0 /100 WBC 0-0 jzru=272) NEUTROPHILS RELATIVE PERCENT (BEAKER) (test 64 % jnvt=968) LYMPHOCYTES RELATIVE PERCENT (BEAKER) (test 22 % sdys=814) MONOCYTES RELATIVE PERCENT (BEAKER) (test 9 % njiw=251) EOSINOPHILS RELATIVE PERCENT (BEAKER) (test 5 % xnas=583) BASOPHILS RELATIVE PERCENT (BEAKER) (test 1 % vrof=837) NEUTROPHILS ABSOLUTE COUNT (BEAKER) (test 3.93 K/ L 1.56-6.13 doza=902) LYMPHOCYTES ABSOLUTE COUNT (BEAKER) (test 1.35 K/ L 1.18-3.74 azrp=765) MONOCYTES ABSOLUTE COUNT (BEAKER) (test 0.53 K/ L 0.24-0.36 kjis=463) EOSINOPHILS ABSOLUTE COUNT (BEAKER) (test 0.28 K/ L 0.04-0.36 szoe=539) BASOPHILS ABSOLUTE COUNT (BEAKER) (test 0.05 K/ L 0.01-0.08 fcsg=457) IMMATURE GRANULOCYTES-RELATIVE PERCENT (BEAKER) 1 % 0-1 (test ylij=3450) [id number] 06:49:00 Test Item Value Reference Range Comments PROTIME (BEAKER) (test ygyz=055) 13.4 seconds 11.7-14.7 INR (BEAKER) (test mntz=012) 1.0 <=5.9 PARTIAL THROMBOPLASTIN TIME (BEAKER) (test 30.9 seconds 22.5-36.0 bkou=589) RECOMMENDED COUMADIN/WARFARIN INR THERAPY RANGESSTANDARD DOSE: 2.0 - 3.0 Includes: PROPHYLAXIS forvenous thrombosis, systemic embolization; TREATMENT for venous thrombosis and/or pulmonary embolus.HIGH RISK: Target INR is 2.5-3.5 for patients with mechanical heart valves.URINALYSIS W/ REFLEX URINE [id number] 05:32:00 Test Item Value Reference Range Comments COLOR (BEAKER) (test lorh=477) Yellow CLARITY (BEAKER) (test jqyg=545) Hazy SPECIFIC GRAVITY UA (BEAKER) (test fxpo=337) 1.021 1.001-1.035 PH UA (BEAKER) (test nnbt=454) 5.5 5.0-8.0 PROTEIN UA (BEAKER) (test tjbx=929) 30 mg/dL Negative GLUCOSE UA (BEAKER) (test quqt=037) Negative Negative KETONES UA (BEAKER) (test nitg=518) Negative Negative BILIRUBIN UA (BEAKER) (test eayd=286) Negative Negative BLOOD UA (BEAKER) (test fyed=456) Negative Negative NITRITE UA (BEAKER) (test hhcr=835) Negative Negative LEUKOCYTE ESTERASE UA (BEAKER) (test kojz=658) Large Negative UROBILINOGEN UA (BEAKER) (test hnjr=537) 2.0 mg/dL 0.2-1.0 RBC UA (BEAKER) (test jihn=725) 7 /HPF WBC UA (BEAKER) (test qnbs=727) 7 /HPF MUCUS (BEAKER) (test sieo=9626) Rare SQUAMOUS EPITHELIAL (BEAKER) (test jtum=434) 6 /HPF HYALINE CASTS (BEAKER) (test ncma=608) 40 /LPF SOURCE(BEAKER) (test nuxz=0418) POCT-GLUCOSE [id number] 05:00:00 Test Item Value Reference Range Comments POC-GLUCOSE METER (BEAKER) 227 mg/dL 70-110 TESTED AT [facility] [address] [facility] (test nlzm=5630) [facility] [address] ALPHA FETOPROTEIN (AFP), TUMOR [id number] 15:55:00 Test Item Value Reference Range Comments ALPHA-FETOPROTEIN (BEAKER) (test hqbq=7156) 3.4 ng/mL <10.0 BASIC METABOLIC [id number] 15:40:00 Test Item Value Reference Range Comments SODIUM (BEAKER) (test 133 meq/L 136-145 tjqz=612) POTASSIUM (BEAKER) (test 4.8 meq/L 3.5-5.1 oraz=547) CHLORIDE (BEAKER) (test 101 meq/L 98-107 ajeo=047) CO2 (BEAKER) (test 23 meq/L 22-29 mtle=963) BLOOD UREA NITROGEN 37 mg/dL 7-21 (BEAKER) (test csnz=325) CREATININE (BEAKER) (test 2.17 mg/dL 0.57-1.25 taun=917) GLUCOSE RANDOM (BEAKER) 191 mg/dL 70-105 (test cdal=805) CALCIUM (BEAKER) (test 9.2 mg/dL 8.4-10.2 mpkz=296) EGFR (BEAKER) (test 23 mL/min/1.73 sq m ESTIMATED GFR IS NOT yldu=1700) ACCURATE CREATININE CLEARANCE IN PREDICTING GLOMERULAR FILTRATION RATE. ESTIMATED GFR IS NOT APPLICABLE FOR DIALYSIS PATIENTS. HEPATIC FUNCTION [id number] 15:38:00 Test Item Value Reference Range Comments TOTAL PROTEIN (BEAKER) (test vuio=081) 6.9 gm/dL 6.0-8.3 ALBUMIN (BEAKER) (test bagz=9026) 3.7 g/dL 3.5-5.0 BILIRUBIN TOTAL (BEAKER) (test kyni=999) 0.8 mg/dL 0.2-1.2 BILIRUBIN DIRECT (BEAKER) (test wdgq=521) 0.3 mg/dL 0.1-0.5 ALKALINE PHOSPHATASE (BEAKER) (test bibu=030) 95 U/L 40-150 AST (SGOT) (BEAKER) (test faiu=943) 24 U/L 5-34 ALT (SGPT) (BEAKER) (test ndjw=158) 14 U/L 6-55 PROTHROMBIN [id number] 15:29:00 Test Item Value Reference Range Comments PROTIME (BEAKER) (test emlo=537) 12.8 seconds 11.7-14.7 INR (BEAKER) (test gtaw=969) 1.0 <=5.9 RECOMMENDED COUMADIN/WARFARIN INR THERAPY RANGESSTANDARD DOSE: 2.0 - 3.0 Includes: PROPHYLAXIS forvenous thrombosis, systemic embolization; TREATMENT for venous thrombosis and/or pulmonary embolus.HIGH RISK: Target INR is 2.5-3.5 for patients with mechanical heart valves.CBC W/PLT COUNT & AUTO [id number] 15:17:00 Test Item Value Reference Range Comments WHITE BLOOD CELL COUNT (BEAKER) (test qszp=791) 7.8 K/ L 3.5-10.5 RED BLOOD CELL COUNT (BEAKER) (test obge=903) 4.49 M/ L 3.93-5.22 HEMOGLOBIN (BEAKER) (test cksr=763) 12.4 GM/DL 11.2-15.7 HEMATOCRIT (BEAKER) (test lmmw=120) 39.1 % 34.1-44.9 MEAN CORPUSCULAR VOLUME (BEAKER) (test vigi=043) 87.1 fL 79.4-94.8 MEAN CORPUSCULAR HEMOGLOBIN (BEAKER) (test 27.6 pg 25.6-32.2 jmdy=131) MEAN CORPUSCULAR HEMOGLOBIN CONC (BEAKER) (test 31.7 GM/DL 32.2-35.5 fvor=363) RED CELL DISTRIBUTION WIDTH (BEAKER) (test 14.0 % 11.7-14.4 ucax=565) PLATELET COUNT (BEAKER) (test yeoh=815) 196 K/CU MM 150-450 MEAN PLATELET VOLUME (BEAKER) (test cjua=339) 9.9 fL 9.4-12.3 NUCLEATED RED BLOOD CELLS (BEAKER) (test 0 /100 WBC 0-0 bcso=226) NEUTROPHILS RELATIVE PERCENT (BEAKER) (test 72 % zuqd=183) LYMPHOCYTES RELATIVE PERCENT (BEAKER) (test 18 % eqbs=947) MONOCYTES RELATIVE PERCENT (BEAKER) (test 6 % lbnw=147) EOSINOPHILS RELATIVE PERCENT (BEAKER) (test 4 % igpa=293) BASOPHILS RELATIVE PERCENT (BEAKER) (test 1 % azah=620) NEUTROPHILS ABSOLUTE COUNT (BEAKER) (test 5.62 K/ L 1.56-6.13 iuxy=315) LYMPHOCYTES ABSOLUTE COUNT (BEAKER) (test 1.37 K/ L 1.18-3.74 bexq=570) MONOCYTES ABSOLUTE COUNT (BEAKER) (test 0.43 K/ L 0.24-0.36 ylvz=503) EOSINOPHILS ABSOLUTE COUNT (BEAKER) (test 0.28 K/ L 0.04-0.36 aksc=292) BASOPHILS ABSOLUTE COUNT (BEAKER) (test 0.07 K/ L 0.01-0.08 pbbh=769) IMMATURE GRANULOCYTES-RELATIVE PERCENT (BEAKER) 0 % 0-1 (test rdkr=8383) ANTI-MITOCHONDRIAL AB, REFLEX TO [id number] 08:36:00 Test Item Value Reference Range Comments SCAN RESULT (test xanp=[id number]) OSMOLALITY, [id number] 10:30:00 Test Item Value Reference Range Comments OSMOLALITY, SERUM (BEAKER) (test pjqt=226) 301 mOsm/kg 275-295 POCT-GLUCOSE [id number] 08:26:00 Test Item Value Reference Range Comments POC-GLUCOSE METER (BEAKER) 243 mg/dL 70-110 TESTED AT [address] (test eorv=3395) [facility] [id number] COMPREHENSIVE METABOLIC [id number] 08:05:00 Test Item Value Reference Range Comments TOTAL PROTEIN (BEAKER) 5.5 gm/dL 6.0-8.3 (test ktqh=753) ALBUMIN (BEAKER) (test 3.2 g/dL 3.5-5.0 axel=5039) ALKALINE PHOSPHATASE 75 U/L 40-150 (BEAKER) (test eslg=465) BILIRUBIN TOTAL (BEAKER) 0.9 mg/dL 0.2-1.2 (test rtrc=236) SODIUM (BEAKER) (test 132 meq/L 136-145 wyec=747) POTASSIUM (BEAKER) (test 4.3 meq/L 3.5-5.1 ppvl=260) CHLORIDE (BEAKER) (test 101 meq/L 98-107 tmki=732) CO2 (BEAKER) (test 25 meq/L 22-29 cmty=045) BLOOD UREA NITROGEN 45 mg/dL 7-21 (BEAKER) (test pckv=021) CREATININE (BEAKER) (test 1.89 mg/dL 0.57-1.25 riur=519) GLUCOSE RANDOM (BEAKER) 241 mg/dL 70-105 (test xjdo=450) CALCIUM (BEAKER) (test 8.6 mg/dL 8.4-10.2 ktgo=935) AST (SGOT) (BEAKER) (test 19 U/L 5-34 fjcm=103) ALT (SGPT) (BEAKER) (test 10 U/L 6-55 khdu=803) EGFR (BEAKER) (test 27 mL/min/1.73 sq m ESTIMATED GFR IS NOT wyet=9268) ACCURATE CREATININE CLEARANCE IN PREDICTING GLOMERULAR FILTRATION RATE. ESTIMATED GFR IS NOT APPLICABLE FOR DIALYSIS PATIENTS. [id number] 08:02:00 Test Item Value Reference Range Comments PHOSPHORUS (BEAKER) (test rfox=286) 3.6 mg/dL 2.3-4.7 [id number] 08:02:00 Test Item Value Reference Range Comments MAGNESIUM (BEAKER) (test wvtr=387) 2.0 mg/dL 1.6-2.6 CBC W/PLT COUNT & AUTO [id number] 05:40:00 Test Item Value Reference Range Comments WHITE BLOOD CELL COUNT (BEAKER) (test grqd=630) 5.7 K/ L 3.5-10.5 RED BLOOD CELL COUNT (BEAKER) (test uixy=553) 3.76 M/ L 3.93-5.22 HEMOGLOBIN (BEAKER) (test jcic=447) 10.6 GM/DL 11.2-15.7 HEMATOCRIT (BEAKER) (test zzys=877) 32.9 % 34.1-44.9 MEAN CORPUSCULAR VOLUME (BEAKER) (test txbl=188) 87.5 fL 79.4-94.8 MEAN CORPUSCULAR HEMOGLOBIN (BEAKER) (test 28.2 pg 25.6-32.2 buhl=202) MEAN CORPUSCULAR HEMOGLOBIN CONC (BEAKER) (test 32.2 GM/DL 32.2-35.5 xxwy=483) RED CELL DISTRIBUTION WIDTH (BEAKER) (test 14.2 % 11.7-14.4 qzvw=034) PLATELET COUNT (BEAKER) (test epvf=738) 142 K/CU MM 150-450 MEAN PLATELET VOLUME (BEAKER) (test mapj=406) 9.8 fL 9.4-12.3 NUCLEATED RED BLOOD CELLS (BEAKER) (test 0 /100 WBC 0-0 vcxk=529) NEUTROPHILS RELATIVE PERCENT (BEAKER) (test 70 % vxbo=383) LYMPHOCYTES RELATIVE PERCENT (BEAKER) (test 19 % zckx=251) MONOCYTES RELATIVE PERCENT (BEAKER) (test 7 % opzl=086) EOSINOPHILS RELATIVE PERCENT (BEAKER) (test 3 % xpws=830) BASOPHILS RELATIVE PERCENT (BEAKER) (test 1 % lfqj=509) NEUTROPHILS ABSOLUTE COUNT (BEAKER) (test 3.99 K/ L 1.56-6.13 qhto=491) LYMPHOCYTES ABSOLUTE COUNT (BEAKER) (test 1.05 K/ L 1.18-3.74 ahwl=159) MONOCYTES ABSOLUTE COUNT (BEAKER) (test 0.40 K/ L 0.24-0.36 irus=685) EOSINOPHILS ABSOLUTE COUNT (BEAKER) (test 0.16 K/ L 0.04-0.36 zwqx=205) BASOPHILS ABSOLUTE COUNT (BEAKER) (test 0.04 K/ L 0.01-0.08 flgw=561) IMMATURE GRANULOCYTES-RELATIVE PERCENT (BEAKER) 0 % 0-1 (test andc=5161) CALCIUM, [id number] 05:17:00 Test Item Value Reference Range Comments CALCIUM IONIZED (BEAKER) (test tkkq=038) 1.06 mmol/L 1.12-1.27 PH, BLOOD (BEAKER) (test tonq=7584) 7.41 U/S, RENAL, [id number] 03:59:00Reason for exam:->HEMALATHA/CKDShould this be performed at [...] Wilson Verified Date/Time: 11/24/2018 03:59:04 Reading Location: [address] Transitional Reading Room TROPONIN [id number] 23:19:00 Test Item Value Reference Range Comments TROPONIN I (BEAKER) (test lqdd=043) < ng/mL 0.00-0.03 Troponin I (TnI) levels [...] acidosis, acute neurological disease, and persistent tachyarrhythmia.POCT-GLUCOSE [id number] 21:12:00 Test Item Value Reference Range Comments POC-GLUCOSE METER (BEAKER) 277 mg/dL 70-110 TESTED AT [address] (test cqlk=5817) [facility] [address] PROTEIN, RANDOM [id number] 20:11:00 Test Item Value Reference Range Comments PROTEIN, URINE (BEAKER) (test hbls=4636) 10 mg/dL 0-14 SODIUM, RANDOM [id number] 20:05:00 Test Item Value Reference Range Comments SODIUM URINE (BEAKER) (test spsb=836) < meq/L Reference Range: No NormalsPOCT-GLUCOSE [id number] 17:28:00 Test Item Value Reference Range Comments POC-GLUCOSE METER (BEAKER) 291 mg/dL 70-110 TESTED AT [address] (test euma=0880) [facility] [address] POCT-GLUCOSE [id number] 14:02:00 Test Item Value Reference Range Comments POC-GLUCOSE METER (BEAKER) 148 mg/dL 70-110 TESTED AT [facility] [address] [facility] (test ozun=7178) [facility] [address] URINALYSIS W/ [id number] 13:32:00 Test Item Value Reference Range Comments COLOR (BEAKER) (test sfxy=227) Yellow CLARITY (BEAKER) (test qnfp=174) Clear SPECIFIC GRAVITY UA (BEAKER) (test 1.015 1.001-1.035 mqtp=024) PH UA (BEAKER) (test uwqm=193) 5.0 5.0-8.0 PROTEIN UA (BEAKER) (test cfjd=786) Negative Negative GLUCOSE UA (BEAKER) (test niie=839) Negative Negative KETONES UA (BEAKER) (test cvlp=366) Negative Negative BILIRUBIN UA (BEAKER) (test ibvb=154) Negative Negative BLOOD UA (BEAKER) (test vsrl=055) Negative Negative NITRITE UA (BEAKER) (test whdp=912) Negative Negative LEUKOCYTE ESTERASE UA (BEAKER) (test Negative Negative ovry=801) UROBILINOGEN UA (BEAKER) (test mtrw=869) 0.2 mg/dL 0.2-1.0 RBC UA (BEAKER) (test djan=916) < /HPF WBC UA (BEAKER) (test drcm=434) 2 /HPF BACTERIA (BEAKER) (test iqbl=131) Occasional SQUAMOUS EPITHELIAL (BEAKER) (test 19 /HPF libk=487) HYALINE CASTS (BEAKER) (test znyb=474) 5 /LPF AMORPHOUS CRYSTALS (BEAKER) (test Occasional mfme=8194) SOURCE(BEAKER) (test oypg=9724) Urine, Clean Catch U/S, ABDOMINAL, [id number] 13:29:00Abdomen limited area? Add comment if clarification [...] Valles Verified Date/Time: 11/23/2018 13:29:13 Reading Location: [address] Transitional Reading Room U/S, [id number] 13:01:00Reason for exam:->Therapeutic paracentesisFINAL REPORT Paracentesis dated 11/23/2018 Procedure: Ultrasound-guided paracentesis. Preprocedure diagnosis: Ascites Postprocedure diagnosis: Ascites Conscious sedation: None. Radiologist: Giovanni Haas M.D. Sausage Inspector: None Anesthesia: 1% Xylocaine mixed with sodium bicarbonate local anesthesia. Technique: After obtaining informed consent, ultrasound-guided paracentesis was performed under usual sterile technique. Using a 5 tristanian drainage catheter , puncture was made in the right lower quadrant abdomen. Approximately 16,200 cc of serous fluid was removed. Patient tolerated the procedure well without complication. Complication: None Graft/Implant: None Estimated Blood Loss: None Impression: Ultrasound-guided paracentesis. Signed: Giovanni Haas Verified Date/Time: 11/23/2018 13:01:25 Reading Location: [facility] [id number] Ortho Consult Reading Room Electronically signedby: GIOVANNI HAAS M.D. on 2018 01:01 PMCBC W/PLT COUNT & AUTO [id number] 08:55:00 Test Item Value Reference Range Comments WHITE BLOOD CELL COUNT (BEAKER) (test taqm=165) 5.7 K/ L 3.5-10.5 RED BLOOD CELL COUNT (BEAKER) (test bzcb=667) 3.72 M/ L 3.93-5.22 HEMOGLOBIN (BEAKER) (test kdsw=449) 10.5 GM/DL 11.2-15.7 HEMATOCRIT (BEAKER) (test sgca=515) 32.5 % 34.1-44.9 MEAN CORPUSCULAR VOLUME (BEAKER) (test pkuh=184) 87.4 fL 79.4-94.8 MEAN CORPUSCULAR HEMOGLOBIN (BEAKER) (test 28.2 pg 25.6-32.2 eemg=329) MEAN CORPUSCULAR HEMOGLOBIN CONC (BEAKER) (test 32.3 GM/DL 32.2-35.5 dxdo=310) RED CELL DISTRIBUTION WIDTH (BEAKER) (test 14.5 % 11.7-14.4 vhwy=636) PLATELET COUNT (BEAKER) (test lrib=751) 148 K/CU MM 150-450 MEAN PLATELET VOLUME (BEAKER) (test elhp=105) 9.4 fL 9.4-12.3 NUCLEATED RED BLOOD CELLS (BEAKER) (test 0 /100 WBC 0-0 pdyh=974) NEUTROPHILS RELATIVE PERCENT (BEAKER) (test 63 % ejss=907) LYMPHOCYTES RELATIVE PERCENT (BEAKER) (test 23 % okxa=227) MONOCYTES RELATIVE PERCENT (BEAKER) (test 8 % ncqz=931) EOSINOPHILS RELATIVE PERCENT (BEAKER) (test 5 % tlgv=287) BASOPHILS RELATIVE PERCENT (BEAKER) (test 1 % wkyz=104) NEUTROPHILS ABSOLUTE COUNT (BEAKER) (test 3.61 K/ L 1.56-6.13 ggtw=739) LYMPHOCYTES ABSOLUTE COUNT (BEAKER) (test 1.29 K/ L 1.18-3.74 htot=403) MONOCYTES ABSOLUTE COUNT (BEAKER) (test 0.47 K/ L 0.24-0.36 opvt=886) EOSINOPHILS ABSOLUTE COUNT (BEAKER) (test 0.28 K/ L 0.04-0.36 mwwm=720) BASOPHILS ABSOLUTE COUNT (BEAKER) (test 0.05 K/ L 0.01-0.08 wrkz=118) IMMATURE GRANULOCYTES-RELATIVE PERCENT (BEAKER) 0 % 0-1 (test gkjp=5818) POCT-GLUCOSE [id number] 07:43:00 Test Item Value Reference Range Comments POC-GLUCOSE METER (BEAKER) 196 mg/dL 70-110 TESTED AT [facility] [address] [facility] (test ycym=8994) [facility] [address] [id number] 06:53:00 Test Item Value Reference Range Comments FERRITIN (BEAKER) (test zwnb=574) 52 ng/mL 5-275 HEPATITIS B [id number] 06:21:00 Test Item Value Reference Range Comments HEPATITIS B CORE TOTAL ANTIBODY (BEAKER) (test Nonreactive Nonreactive xmuc=587) HEPATITIS B SURFACE ANTIBODY (BEAKER) (test < mIU/mL <8.0 svxg=413) HEPATITIS B SURFACE ANTIGEN (2) (BEAKER) (test Nonreactive Nonreactive pikb=4830) HEPATITIS C [id number] 06:20:00 Test Item Value Reference Range Comments HEPATITIS C ANTIBODY (BEAKER) (test ssxg=930) Nonreactive Nonreactive HEPATITIS A [id number] 06:20:00 Test Item Value Reference Range Comments HEPATITIS A IGM ANTIBODY (BEAKER) (test Nonreactive Nonreactive smbe=742) HEPATITIS A IGG ANTIBODY (BEAKER) (test Nonreactive Nonreactive dfkq=5148) ALPHA FETOPROTEIN (AFP), TUMOR [id number] 06:14:00 Test Item Value Reference Range Comments ALPHA-FETOPROTEIN (BEAKER) (test qwvs=7746) 2.1 ng/mL <10.0 COMPREHENSIVE METABOLIC [id number] 06:01:00 Test Item Value Reference Range Comments TOTAL PROTEIN (BEAKER) 5.9 gm/dL 6.0-8.3 (test mxek=027) ALBUMIN (BEAKER) (test 2.9 g/dL 3.5-5.0 glal=7409) ALKALINE PHOSPHATASE 96 U/L 40-150 (BEAKER) (test fwdi=371) BILIRUBIN TOTAL (BEAKER) 0.5 mg/dL 0.2-1.2 (test tqnm=526) SODIUM (BEAKER) (test 132 meq/L 136-145 lbzs=365) POTASSIUM (BEAKER) (test 4.3 meq/L 3.5-5.1 yepd=263) CHLORIDE (BEAKER) (test 100 meq/L 98-107 xrwx=004) CO2 (BEAKER) (test 26 meq/L 22-29 amfg=601) BLOOD UREA NITROGEN 50 mg/dL 7-21 (BEAKER) (test gyrm=574) CREATININE (BEAKER) (test 2.27 mg/dL 0.57-1.25 ocxi=488) GLUCOSE RANDOM (BEAKER) 219 mg/dL 70-105 (test dnob=777) CALCIUM (BEAKER) (test 8.8 mg/dL 8.4-10.2 wjzm=413) AST (SGOT) (BEAKER) (test 22 U/L 5-34 ysfi=556) ALT (SGPT) (BEAKER) (test 15 U/L 6-55 iqkl=084) EGFR (BEAKER) (test 22 mL/min/1.73 sq m ESTIMATED GFR IS NOT amnd=5752) ACCURATE CREATININE CLEARANCE IN PREDICTING GLOMERULAR FILTRATION RATE. ESTIMATED GFR IS NOT APPLICABLE FOR DIALYSIS PATIENTS. IRON, TIBC, % SAT. (WITHOUT FERRITIN)2018-11-23 05:55:00 Test Item Value Reference Range Comments IRON (BEAKER) (test ybxw=298) 46.0 ug/dL 40.0-160.0 TOTAL IRON BINDING CAPACITY (BEAKER) (test 269 ug/dL 250-450 jfae=579) IRON % SATURATION (2) (BEAKER) (test sxba=7738) 17 % 20-55 [id number] 05:54:00 Test Item Value Reference Range Comments ALPHA-1 ANTITRYPSIN (BEAKER) (test okvn=829) 202.70 mg/dL 90.00-200.00 COMPREHENSIVE METABOLIC [id number] 00:16:00 Test Item Value Reference Range Comments TOTAL PROTEIN (BEAKER) 6.8 gm/dL 6.0-8.3 (test gumv=976) ALBUMIN (BEAKER) (test 3.3 g/dL 3.5-5.0 ghyc=6869) ALKALINE PHOSPHATASE 114 U/L 40-150 (BEAKER) (test jtpv=111) BILIRUBIN TOTAL (BEAKER) 0.6 mg/dL 0.2-1.2 (test ktjg=996) SODIUM (BEAKER) (test 130 meq/L 136-145 pzdx=785) POTASSIUM (BEAKER) (test 4.4 meq/L 3.5-5.1 rcww=283) CHLORIDE (BEAKER) (test 99 meq/L 98-107 zcav=400) CO2 (BEAKER) (test 22 meq/L 22-29 fewk=107) BLOOD UREA NITROGEN 46 mg/dL 7-21 (BEAKER) (test ywbt=810) CREATININE (BEAKER) (test 2.40 mg/dL 0.57-1.25 xzew=422) GLUCOSE RANDOM (BEAKER) 153 mg/dL 70-105 (test uacb=497) CALCIUM (BEAKER) (test 9.1 mg/dL 8.4-10.2 ezze=942) AST (SGOT) (BEAKER) (test 25 U/L 5-34 qlaq=458) ALT (SGPT) (BEAKER) (test 17 U/L 6-55 nvee=731) EGFR (BEAKER) (test 21 mL/min/1.73 sq m ESTIMATED GFR IS NOT mybq=4461) ACCURATE CREATININE CLEARANCE IN PREDICTING GLOMERULAR FILTRATION RATE. ESTIMATED GFR IS NOT APPLICABLE FOR DIALYSIS PATIENTS. [id number] 23:52:00 Test Item Value Reference Range Comments PROTIME (BEAKER) (test ipej=427) 13.3 seconds 11.7-14.7 INR (BEAKER) (test dnqt=859) 1.0 <=5.9 PARTIAL THROMBOPLASTIN TIME (BEAKER) (test 26.9 seconds 22.5-36.0 cyrv=662) RECOMMENDED COUMADIN/WARFARIN INR THERAPY RANGESSTANDARD DOSE: 2.0 - 3.0 Includes: PROPHYLAXIS forvenous thrombosis, systemic embolization; TREATMENT for venous thrombosis and/or pulmonary embolus.HIGH RISK: Target INR is 2.5-3.5 for patients with mechanical heart valves.POCT-GLUCOSE [id number] 21:25:00 Test Item Value Reference Range Comments POC-GLUCOSE METER (BEAKER) 178 mg/dL 70-110 [facility] [address] [facility] (test zlqe=1099) [facility] [address]
[2019-09-17 08:21] LABS: MPV 7.1 fL (7.6-11.3)
[2019-09-17 08:25] LABS: Protime INR 0.96
[2019-09-17 09:29] LABS: Platelet Estimate ADEQ
--- NOTE | 2019-09-17 10:57 | RAD REPORT ---
EXAM DESCRIPTION: US - Paracentesis Proc Guidance - 09/17/2019 9:38 am CLINICAL HISTORY: Renal disease with ascites FINDINGS: The risks, benefits and alternatives to the procedure were explained to the patient and in formed consent obtained. The skin and subcutaneous tissues were anesthetized with Lidocaine. Under sonographic guidance an 8 F rench catheter was placed into the left lower quadrant. 3.5 liters of yellow fluid removed. Fluid was sent to the lab. The patient experienced no immediate complication. IMPRESSION: Paracentesis
[2019-09-17 11:12] VITALS: BP 118/45; TEMP 98.1; O2SAT 98
[2019-09-17 11:53] LABS: Body Fluid WBC 140 /mm^3
[2019-09-17 12:43] LABS: Appearance SLT. TURBID (CLEAR); Body Fluid Source PERITONEAL; Color of fluid Yellow (COLORLESS)
== END ==
LOC: DS 07:48
PROVIDERS: ATTEND Internal Medicine Hepatology
DX: R18.8 Other ascites (principal)
CPT/HCPCS: 36415; 89050; 85049; 85610; 82565; 85730; 96365; 49083; P9047

== ENCOUNTER 2019-09-25 07:42 | Day surgery (SDC) | payer OTHER ==
--- OUTSIDE RECORDS SUMMARY | 2019-09-25 07:52 | XMS REPORT ---
:1960 Author Organization [facility] Address [address] [place] [address] Dr. Melton [address] [place] [id number] Care Team Providers Name Role Phone DANIEL [...] Reference Range Comments TOTAL PROTEIN (BEAKER) (test lwsm=367) 6.5 gm/dL 6.0-8.3 ALBUMIN (BEAKER) (test sjor=9821) 3.0 g/dL 3.5-5.0 BILIRUBIN TOTAL (BEAKER) (test nmha=339) 1.5 mg/dL 0.2-1.2 BILIRUBIN DIRECT (BEAKER) (test czww=284) 0.7 mg/dL 0.1-0.5 ALKALINE PHOSPHATASE (BEAKER) (test fvjj=426) 120 U/L 40-150 AST (SGOT) (BEAKER) (test leyw=672) 34 U/L 5-34 ALT (SGPT) (BEAKER) (test ibzd=555) 21 U/L 6-55 BASIC METABOLIC [id number] 15:39:00 Test Item Value Reference Range Comments SODIUM (BEAKER) (test 135 meq/L 136-145 uhmj=459) POTASSIUM (BEAKER) (test 3.8 meq/L 3.5-5.1 cxgv=460) CHLORIDE (BEAKER) (test 99 meq/L 98-107 xylj=931) CO2 (BEAKER) (test 31 meq/L 22-29 tpyp=992) BLOOD UREA NITROGEN 21 mg/dL 7-21 (BEAKER) (test sdul=862) CREATININE (BEAKER) (test 1.70 mg/dL 0.57-1.25 jrve=140) GLUCOSE RANDOM (BEAKER) 290 mg/dL 70-105 (test puwd=427) CALCIUM (BEAKER) (test 8.4 mg/dL 8.4-10.2 zbtg=854) EGFR (BEAKER) (test 31 mL/min/1.73 sq m ESTIMATED GFR IS NOT zmhp=0839) ACCURATE CREATININE CLEARANCE IN PREDICTING GLOMERULAR FILTRATION RATE. ESTIMATED GFR IS NOT APPLICABLE FOR DIALYSIS PATIENTS. PROTHROMBIN [id number] 15:39:00 Test Item Value Reference Range Comments PROTIME (BEAKER) (test syst=081) 14.2 seconds 11.9-14.2 INR (BEAKER) (test reua=689) 1.2 <=5.9 Effective 04/01/2019: PT Reference Range ChangeNew: 11.9-14.2 Previous: 11.7- 14.7RECOMMENDED COUMADIN/WARFARIN INR THERAPY RANGESSTANDARD DOSE: 2.0-3.0 Includes: PROPHYLAXIS for venous thrombosis, systemic embolization; TREATMENT for venous thrombosis and/or pulmonary embolus.HIGH RISK: Target INR is2.5-3.5 for patients wiht mechanical heart valves.CBC W/PLT COUNT & AUTO [id number] 15:25:00 Test Item Value Reference Range Comments WHITE BLOOD CELL COUNT (BEAKER) (test zhta=677) 5.8 K/ L 3.5-10.5 RED BLOOD CELL COUNT (BEAKER) (test shnq=865) 3.30 M/ L 3.93-5.22 HEMOGLOBIN (BEAKER) (test jvcl=985) 8.9 GM/DL 11.2-15.7 HEMATOCRIT (BEAKER) (test rlgo=117) 28.2 % 34.1-44.9 MEAN CORPUSCULAR VOLUME (BEAKER) (test kxzo=079) 85.5 fL 79.4-94.8 MEAN CORPUSCULAR HEMOGLOBIN (BEAKER) (test 27.0 pg 25.6-32.2 bsav=363) MEAN CORPUSCULAR HEMOGLOBIN CONC (BEAKER) (test 31.6 GM/DL 32.2-35.5 kqxx=051) RED CELL DISTRIBUTION WIDTH (BEAKER) (test 16.6 % 11.7-14.4 gvky=650) PLATELET COUNT (BEAKER) (test ailo=736) 185 K/CU MM 150-450 MEAN PLATELET VOLUME (BEAKER) (test wlqd=266) 9.0 fL 9.4-12.3 NUCLEATED RED BLOOD CELLS (BEAKER) (test 0 /100 WBC 0-0 gnrk=993) NEUTROPHILS RELATIVE PERCENT (BEAKER) (test 50 % liqg=923) LYMPHOCYTES RELATIVE PERCENT (BEAKER) (test 32 % tjky=046) MONOCYTES RELATIVE PERCENT (BEAKER) (test 7 % zxtx=967) EOSINOPHILS RELATIVE PERCENT (BEAKER) (test 10 % rqlj=979) BASOPHILS RELATIVE PERCENT (BEAKER) (test 2 % czaw=373) NEUTROPHILS ABSOLUTE COUNT (BEAKER) (test 2.88 K/ L 1.56-6.13 dwoz=405) LYMPHOCYTES ABSOLUTE COUNT (BEAKER) (test 1.86 K/ L 1.18-3.74 dgpo=125) MONOCYTES ABSOLUTE COUNT (BEAKER) (test 0.38 K/ L 0.24-0.36 yvqm=100) EOSINOPHILS ABSOLUTE COUNT (BEAKER) (test 0.55 K/ L 0.04-0.36 vmdx=246) BASOPHILS ABSOLUTE COUNT (BEAKER) (test 0.10 K/ L 0.01-0.08 zwga=784) IMMATURE GRANULOCYTES-RELATIVE PERCENT (BEAKER) 0 % 0-1 (test ccba=9664) PROTHROMBIN TIME/[id number] 17:20:00 Test Item Value Reference Range Comments PROTIME (BEAKER) (test yrfs=067) 13.6 seconds 11.9-14.2 INR (BEAKER) (test aflz=498) 1.1 <=5.9 Effective 04/01/2019: PT Reference Range ChangeNew: 11.9-14.2 Previous: 11.7- 14.7RECOMMENDED COUMADIN/WARFARIN INR THERAPY RANGESSTANDARD DOSE: 2.0-3.0 Includes: PROPHYLAXIS for venous thrombosis, systemic embolization; TREATMENT for venous thrombosis and/or pulmonary embolus.HIGH RISK: Target INR is2.5-3.5 for patients wiht mechanical heart valves.HEPATIC FUNCTION [id number] 17:16 :00 Test Item Value Reference Range Comments TOTAL PROTEIN (BEAKER) (test purb=090) 6.7 gm/dL 6.0-8.3 ALBUMIN (BEAKER) (test xwmq=3385) 3.0 g/dL 3.5-5.0 BILIRUBIN TOTAL (BEAKER) (test bhmp=547) 1.4 mg/dL 0.2-1.2 BILIRUBIN DIRECT (BEAKER) (test vvzm=374) 0.7 mg/dL 0.1-0.5 ALKALINE PHOSPHATASE (BEAKER) (test tash=172) 139 U/L 40-150 AST (SGOT) (BEAKER) (test cwlr=379) 32 U/L 5-34 ALT (SGPT) (BEAKER) (test kjit=624) 16 U/L 6-55 BASIC METABOLIC [id number] 17:16:00 Test Item Value Reference Range Comments SODIUM (BEAKER) (test 139 meq/L 136-145 gcce=842) POTASSIUM (BEAKER) (test 3.6 meq/L 3.5-5.1 vibg=154) CHLORIDE (BEAKER) (test 99 meq/L 98-107 pnzc=965) CO2 (BEAKER) (test 32 meq/L 22-29 tdzi=698) BLOOD UREA NITROGEN 26 mg/dL 7-21 (BEAKER) (test wedc=336) CREATININE (BEAKER) (test 1.68 mg/dL 0.57-1.25 fpbc=666) GLUCOSE RANDOM (BEAKER) 263 mg/dL 70-105 (test aajf=331) CALCIUM (BEAKER) (test 9.0 mg/dL 8.4-10.2 wtel=660) EGFR (BEAKER) (test 31 mL/min/1.73 sq m ESTIMATED GFR IS NOT deye=4792) ACCURATE CREATININE CLEARANCE IN PREDICTING GLOMERULAR FILTRATION RATE. ESTIMATED GFR IS NOT APPLICABLE FOR DIALYSIS PATIENTS. CBC W/PLT COUNT & AUTO [id number] 17:01:00 Test Item Value Reference Range Comments WHITE BLOOD CELL COUNT (BEAKER) (test uobz=179) 7.4 K/ L 3.5-10.5 RED BLOOD CELL COUNT (BEAKER) (test oexj=797) 3.44 M/ L 3.93-5.22 HEMOGLOBIN (BEAKER) (test sdgx=809) 9.6 GM/DL 11.2-15.7 HEMATOCRIT (BEAKER) (test eysg=284) 30.1 % 34.1-44.9 MEAN CORPUSCULAR VOLUME (BEAKER) (test qvza=212) 87.5 fL 79.4-94.8 MEAN CORPUSCULAR HEMOGLOBIN (BEAKER) (test 27.9 pg 25.6-32.2 dhek=263) MEAN CORPUSCULAR HEMOGLOBIN CONC (BEAKER) (test 31.9 GM/DL 32.2-35.5 tadg=166) RED CELL DISTRIBUTION WIDTH (BEAKER) (test 16.0 % 11.7-14.4 zxzv=306) PLATELET COUNT (BEAKER) (test ldwk=897) 190 K/CU MM 150-450 MEAN PLATELET VOLUME (BEAKER) (test xbod=015) 9.3 fL 9.4-12.3 NUCLEATED RED BLOOD CELLS (BEAKER) (test 0 /100 WBC 0-0 oyhm=638) NEUTROPHILS RELATIVE PERCENT (BEAKER) (test 65 % rouq=256) LYMPHOCYTES RELATIVE PERCENT (BEAKER) (test 23 % rimy=340) MONOCYTES RELATIVE PERCENT (BEAKER) (test 6 % yslb=570) EOSINOPHILS RELATIVE PERCENT (BEAKER) (test 5 % clyl=162) BASOPHILS RELATIVE PERCENT (BEAKER) (test 1 % vyab=625) NEUTROPHILS ABSOLUTE COUNT (BEAKER) (test 4.83 K/ L 1.56-6.13 qhey=307) LYMPHOCYTES ABSOLUTE COUNT (BEAKER) (test 1.67 K/ L 1.18-3.74 gxym=037) MONOCYTES ABSOLUTE COUNT (BEAKER) (test 0.41 K/ L 0.24-0.36 wlbs=391) EOSINOPHILS ABSOLUTE COUNT (BEAKER) (test 0.40 K/ L 0.04-0.36 djdo=415) BASOPHILS ABSOLUTE COUNT (BEAKER) (test 0.06 K/ L 0.01-0.08 uhsy=775) IMMATURE GRANULOCYTES-RELATIVE PERCENT (BEAKER) 0 % 0-1 (test kygl=3029) POCT-GLUCOSE [id number] 13:48:00 Test Item Value Reference Range Comments POC-GLUCOSE METER (BEAKER) 203 mg/dL 70-[address] [facility] [address] [facility] (test yfmb=2524) [facility] [address] POCT-GLUCOSE [id number] 09:45:00 Test Item Value Reference Range Comments POC-GLUCOSE METER (BEAKER) 168 mg/dL 70-[address] [facility] [address] [facility] (test isiw=7257) [facility] [address] POCT-GLUCOSE [id number] 08:06:00 Test Item Value Reference Range Comments POC-GLUCOSE METER (BEAKER) 177 mg/dL 70-110 TESTED AT [address] (test pvwp=6487) [facility] [address] COMPREHENSIVE METABOLIC [id number] 06:11:00 Test Item Value Reference Range Comments TOTAL PROTEIN (BEAKER) 5.5 gm/dL 6.0-8.3 (test rczx=834) ALBUMIN (BEAKER) (test 3.0 g/dL 3.5-5.0 frzl=4484) ALKALINE PHOSPHATASE 117 U/L 40-150 (BEAKER) (test yysd=509) BILIRUBIN TOTAL (BEAKER) 1.2 mg/dL 0.2-1.2 (test xtlq=728) SODIUM (BEAKER) (test 138 meq/L 136-145 mupb=002) POTASSIUM (BEAKER) (test 4.1 meq/L 3.5-5.1 cuej=692) CHLORIDE (BEAKER) (test 102 meq/L 98-107 muko=109) CO2 (BEAKER) (test 29 meq/L 22-29 dzhj=077) BLOOD UREA NITROGEN 23 mg/dL 7-21 (BEAKER) (test kapk=058) CREATININE (BEAKER) (test 1.26 mg/dL 0.57-1.25 lihu=649) GLUCOSE RANDOM (BEAKER) 177 mg/dL 70-105 (test cmvj=176) CALCIUM (BEAKER) (test 8.3 mg/dL 8.4-10.2 upzy=680) AST (SGOT) (BEAKER) (test 26 U/L 5-34 jtvi=743) ALT (SGPT) (BEAKER) (test 9 U/L 6-55 zcbc=100) EGFR (BEAKER) (test 43 mL/min/1.73 sq m ESTIMATED GFR IS NOT lvkc=5071) ACCURATE CREATININE CLEARANCE IN PREDICTING GLOMERULAR FILTRATION RATE. ESTIMATED GFR IS NOT APPLICABLE FOR DIALYSIS PATIENTS. CBC (HEMOGRAM ONLY)2019-06-03 05:17:00 Test Item Value Reference Range Comments WHITE BLOOD CELL COUNT (BEAKER) (test zwoo=050) 6.0 K/ L 3.5-10.5 RED BLOOD CELL COUNT (BEAKER) (test xgro=404) 2.95 M/ L 3.93-5.22 HEMOGLOBIN (BEAKER) (test laws=994) 8.1 GM/DL 11.2-15.7 HEMATOCRIT (BEAKER) (test jhmw=360) 26.3 % 34.1-44.9 MEAN CORPUSCULAR VOLUME (BEAKER) (test zadm=337) 89.2 fL 79.4-94.8 MEAN CORPUSCULAR HEMOGLOBIN (BEAKER) (test 27.5 pg 25.6-32.2 bkjs=705) MEAN CORPUSCULAR HEMOGLOBIN CONC (BEAKER) (test 30.8 GM/DL 32.2-35.5 uedg=184) RED CELL DISTRIBUTION WIDTH (BEAKER) (test 17.3 % 11.7-14.4 rown=528) PLATELET COUNT (BEAKER) (test mkco=393) 203 K/CU MM 150-450 MEAN PLATELET VOLUME (BEAKER) (test decp=264) 9.2 fL 9.4-12.3 NUCLEATED RED BLOOD CELLS (BEAKER) (test 0 /100 WBC 0-0 cvdw=763) POCT-GLUCOSE [id number] 23:37:00 Test Item Value Reference Range Comments POC-GLUCOSE METER (BEAKER) 212 mg/dL 70-110 TESTED AT [place] [id number] [facility] (test dtap=7340) [facility] [address] POCT-GLUCOSE [id number] 16:58:00 Test Item Value Reference Range Comments POC-GLUCOSE METER (BEAKER) 313 mg/dL 70-110 TESTED AT [address] (test fqpr=7654) [facility] [address] ANG, TIPSS [id number] 14:25:00Reason for exam:->still recurrent paracentesisFINAL REPORT Procedures:1. [...] the patient's medical record by the nurse. Print Color Operator: Akil Chung MD. Pipe Organ Mechanic: MD Ishaan (Fellow) Approach: 1. Right lower [...] skin and deep soft tissues. A 5 Tu[place]uan one-step catheter wasinserted and removed from the [...] The needle was exchanged for a 4 [place]uan micropuncture sheath. The micropuncture sheath was exchanged over a 0.035 Bentson wire for a 5 Tu[place]uan x 10 cm vascular sheath. The TIPS stent was then cannulated using a 5 Tu[place]uan C2 catheter and 0.035 angled Glidewire. The [...] Verified Date/Time: 06/02/2019 14:25:34 Reading Location : [place] [address] Angio Body Reading Room POCT-GLUCOSE [id number] 11:52:00 Test Item Value Reference Range Comments POC-GLUCOSE METER (BEAKER) 159 mg/dL 70-[address] [facility] [address] [facility] (test zerl=1100) [facility] [address] [id number] 05:55:00 Test Item Value Reference Range Comments MAGNESIUM (BEAKER) (test pdyi=830) 1.6 mg/dL 1.6-2.6 COMPREHENSIVE METABOLIC [id number] 05:55:00 Test Item Value Reference Range Comments TOTAL PROTEIN (BEAKER) 5.7 gm/dL 6.0-8.3 (test gike=478) ALBUMIN (BEAKER) (test 3.3 g/dL 3.5-5.0 vufo=7804) ALKALINE PHOSPHATASE 118 U/L 40-150 (BEAKER) (test tuax=176) BILIRUBIN TOTAL (BEAKER) 1.4 mg/dL 0.2-1.2 (test qcts=564) SODIUM (BEAKER) (test 140 meq/L 136-145 ricw=807) POTASSIUM (BEAKER) (test 3.3 meq/L 3.5-5.1 oopd=214) CHLORIDE (BEAKER) (test 101 meq/L 98-107 nsbl=350) CO2 (BEAKER) (test 31 meq/L 22-29 lcxt=147) BLOOD UREA NITROGEN 23 mg/dL 7-21 (BEAKER) (test iluf=090) CREATININE (BEAKER) (test 1.33 mg/dL 0.57-1.25 nxsr=706) GLUCOSE RANDOM (BEAKER) 131 mg/dL 70-105 (test rqjw=827) CALCIUM (BEAKER) (test 8.7 mg/dL 8.4-10.2 bfoq=656) AST (SGOT) (BEAKER) (test 27 U/L 5-34 fjij=569) ALT (SGPT) (BEAKER) (test 11 U/L 6-55 xdwq=298) EGFR (BEAKER) (test 41 mL/min/1.73 sq m ESTIMATED GFR IS NOT zgnc=3547) ACCURATE CREATININE CLEARANCE IN PREDICTING GLOMERULAR FILTRATION RATE. ESTIMATED GFR IS NOT APPLICABLE FOR DIALYSIS PATIENTS. CBC W/PLT COUNT & AUTO [id number] 05:43:00 Test Item Value Reference Range Comments WHITE BLOOD CELL COUNT (BEAKER) (test dxwq=391) 6.0 K/ L 3.5-10.5 RED BLOOD CELL COUNT (BEAKER) (test sefq=401) 2.97 M/ L 3.93-5.22 HEMOGLOBIN (BEAKER) (test wmpq=580) 8.2 GM/DL 11.2-15.7 HEMATOCRIT (BEAKER) (test yoat=126) 26.0 % 34.1-44.9 MEAN CORPUSCULAR VOLUME (BEAKER) (test xogb=312) 87.5 fL 79.4-94.8 MEAN CORPUSCULAR HEMOGLOBIN (BEAKER) (test 27.6 pg 25.6-32.2 lzqs=093) MEAN CORPUSCULAR HEMOGLOBIN CONC (BEAKER) (test 31.5 GM/DL 32.2-35.5 csrx=265) RED CELL DISTRIBUTION WIDTH (BEAKER) (test 17.7 % 11.7-14.4 deqf=394) PLATELET COUNT (BEAKER) (test bmdi=747) 194 K/CU MM 150-450 MEAN PLATELET VOLUME (BEAKER) (test mkih=528) 9.3 fL 9.4-12.3 NUCLEATED RED BLOOD CELLS (BEAKER) (test 0 /100 WBC 0-0 uanx=347) NEUTROPHILS RELATIVE PERCENT (BEAKER) (test 48 % fpuc=830) LYMPHOCYTES RELATIVE PERCENT (BEAKER) (test 31 % yvag=531) MONOCYTES RELATIVE PERCENT (BEAKER) (test 10 % qlpd=543) EOSINOPHILS RELATIVE PERCENT (BEAKER) (test 9 % cade=057) BASOPHILS RELATIVE PERCENT (BEAKER) (test 1 % ocop=725) NEUTROPHILS ABSOLUTE COUNT (BEAKER) (test 2.84 K/ L 1.56-6.13 pwro=732) LYMPHOCYTES ABSOLUTE COUNT (BEAKER) (test 1.87 K/ L 1.18-3.74 lhlm=937) MONOCYTES ABSOLUTE COUNT (BEAKER) (test 0.60 K/ L 0.24-0.36 gxbk=410) EOSINOPHILS ABSOLUTE COUNT (BEAKER) (test 0.56 K/ L 0.04-0.36 gmpb=731) BASOPHILS ABSOLUTE COUNT (BEAKER) (test 0.08 K/ L 0.01-0.08 conh=615) IMMATURE GRANULOCYTES-RELATIVE PERCENT (BEAKER) 0 % 0-1 (test ndmz=7349) [id number] 05:42:00 Test Item Value Reference Range Comments PHOSPHORUS (BEAKER) (test amno=992) 2.3 mg/dL 2.3-4.7 POCT-GLUCOSE [id number] 22:34:00 Test Item Value Reference Range Comments POC-GLUCOSE METER (BEAKER) 192 mg/dL 70-110 TESTED AT [address] (test fixq=3512) [place] [id number] POCT-GLUCOSE [id number] 17:01:00 Test Item Value Reference Range Comments POC-GLUCOSE METER (BEAKER) 250 mg/dL 70-110 TESTED AT [address] (test loyr=3176) [place] [address] [id number] 07:42:00 Test Item Value Reference Range Comments MAGNESIUM (BEAKER) (test 1.6 mg/dL 1.6-2.6 Specimen slightly hemolyzed holq=956) [id number] 07:42:00 Test Item Value Reference Range Comments PHOSPHORUS (BEAKER) (test 2.8 mg/dL 2.3-4.7 Specimen slightly hemolyzed mwqt=667) COMPREHENSIVE METABOLIC [id number] 07:42:00 Test Item Value Reference Range Comments TOTAL PROTEIN (BEAKER) 5.5 gm/dL 6.0-8.3 Specimen slightly (test grfd=330) hemolyzed ALBUMIN (BEAKER) (test 2.9 g/dL 3.5-5.0 Specimen slightly hthm=8527) hemolyzed ALKALINE PHOSPHATASE 125 U/L 40-150 (BEAKER) (test kolm=811) BILIRUBIN TOTAL (BEAKER) 1.1 mg/dL 0.2-1.2 Specimen slightly (test bajp=004) hemolyzed SODIUM (BEAKER) (test 141 meq/L 136-145 zenf=483) POTASSIUM (BEAKER) (test 3.6 meq/L 3.5-5.1 Specimen slightly jqbp=776) hemolyzed CHLORIDE (BEAKER) (test 101 meq/L 98-107 zmoj=567) CO2 (BEAKER) (test 31 meq/L 22-29 mbwr=208) BLOOD UREA NITROGEN 23 mg/dL 7-21 (BEAKER) (test eeqs=297) CREATININE (BEAKER) (test 1.50 mg/dL 0.57-1.25 Specimen slightly strl=538) hemolyzed GLUCOSE RANDOM (BEAKER) 153 mg/dL 70-105 (test zaal=540) CALCIUM (BEAKER) (test 8.7 mg/dL 8.4-10.2 zfiw=806) AST (SGOT) (BEAKER) (test 35 U/L 5-34 Specimen slightly sbrh=852) hemolyzed ALT (SGPT) (BEAKER) (test 12 U/L 6-55 Specimen slightly rboy=745) hemolyzed EGFR (BEAKER) (test 35 mL/min/1.73 sq m ESTIMATED GFR IS NOT xkuw=1849) ACCURATE CREATININE CLEARANCE IN PREDICTING GLOMERULAR FILTRATION RATE. ESTIMATED GFR IS NOT APPLICABLE FOR DIALYSIS PATIENTS. POCT-GLUCOSE [id number] 07:38:00 Test Item Value Reference Range Comments POC-GLUCOSE METER (BEAKER) 154 mg/dL 70-[address] [facility] [address] [facility] (test xicr=6131) [facility] [address] CBC W/PLT COUNT & AUTO [id number] 06:24:00 Test Item Value Reference Range Comments WHITE BLOOD CELL COUNT (BEAKER) (test zhmn=722) 6.0 K/ L 3.5-10.5 RED BLOOD CELL COUNT (BEAKER) (test fdqw=785) 3.09 M/ L 3.93-5.22 HEMOGLOBIN (BEAKER) (test abtf=186) 8.5 GM/DL 11.2-15.7 HEMATOCRIT (BEAKER) (test rjvm=859) 27.0 % 34.1-44.9 MEAN CORPUSCULAR VOLUME (BEAKER) (test ioas=076) 87.4 fL 79.4-94.8 MEAN CORPUSCULAR HEMOGLOBIN (BEAKER) (test 27.5 pg 25.6-32.2 fdsp=431) MEAN CORPUSCULAR HEMOGLOBIN CONC (BEAKER) (test 31.5 GM/DL 32.2-35.5 mnzz=342) RED CELL DISTRIBUTION WIDTH (BEAKER) (test 17.7 % 11.7-14.4 xhco=952) PLATELET COUNT (BEAKER) (test hijy=634) 196 K/CU MM 150-450 MEAN PLATELET VOLUME (BEAKER) (test gnjg=230) 8.9 fL 9.4-12.3 NUCLEATED RED BLOOD CELLS (BEAKER) (test 0 /100 WBC 0-0 nebe=965) NEUTROPHILS RELATIVE PERCENT (BEAKER) (test 44 % iepm=927) LYMPHOCYTES RELATIVE PERCENT (BEAKER) (test 34 % dium=260) MONOCYTES RELATIVE PERCENT (BEAKER) (test 11 % cewr=087) EOSINOPHILS RELATIVE PERCENT (BEAKER) (test 9 % ykfy=716) BASOPHILS RELATIVE PERCENT (BEAKER) (test 2 % wyqt=900) NEUTROPHILS ABSOLUTE COUNT (BEAKER) (test 2.64 K/ L 1.56-6.13 fawz=345) LYMPHOCYTES ABSOLUTE COUNT (BEAKER) (test 2.03 K/ L 1.18-3.74 mnbx=540) MONOCYTES ABSOLUTE COUNT (BEAKER) (test 0.64 K/ L 0.24-0.36 fbyd=448) EOSINOPHILS ABSOLUTE COUNT (BEAKER) (test 0.54 K/ L 0.04-0.36 hboj=300) BASOPHILS ABSOLUTE COUNT (BEAKER) (test 0.09 K/ L 0.01-0.08 oury=155) IMMATURE GRANULOCYTES-RELATIVE PERCENT (BEAKER) 0 % 0-1 (test lfpc=6505) CALCIUM, [id number] 05:35:00 Test Item Value Reference Range Comments CALCIUM IONIZED (BEAKER) (test vorf=878) 0.99 mmol/L 1.12-1.27 PH, BLOOD (BEAKER) (test qndc=0639) 7.50 POCT-GLUCOSE [id number] 22:12:00 Test Item Value Reference Range Comments POC-GLUCOSE METER (BEAKER) 246 mg/dL 70-110 TESTED AT [address] (test gdou=3526) [facility] [address] POCT-GLUCOSE [id number] 17:11:00 Test Item Value Reference Range Comments POC-GLUCOSE METER (BEAKER) 201 mg/dL 70-[address] [facility] [address] [facility] (test jvyu=3009) [facility] [address] POCT-GLUCOSE [id number] 13:24:00 Test Item Value Reference Range Comments POC-GLUCOSE METER (BEAKER) 173 mg/dL 70-110 TESTED AT [place] [id number] [facility] (test zlod=1728) [facility] [address] COMPREHENSIVE METABOLIC [id number] 09:06:00 Test Item Value Reference Range Comments TOTAL PROTEIN (BEAKER) 5.8 gm/dL 6.0-8.3 (test dmsb=725) ALBUMIN (BEAKER) (test 3.2 g/dL 3.5-5.0 xkcg=9034) ALKALINE PHOSPHATASE 125 U/L 40-150 (BEAKER) (test depn=897) BILIRUBIN TOTAL (BEAKER) 1.6 mg/dL 0.2-1.2 (test zxuv=924) SODIUM (BEAKER) (test 140 meq/L 136-145 ivja=130) POTASSIUM (BEAKER) (test 3.4 meq/L 3.5-5.1 fwri=954) CHLORIDE (BEAKER) (test 100 meq/L 98-107 mare=849) CO2 (BEAKER) (test 31 meq/L 22-29 ioyv=990) BLOOD UREA NITROGEN 21 mg/dL 7-21 (BEAKER) (test xqas=576) CREATININE (BEAKER) (test 1.57 mg/dL 0.57-1.25 gqsu=612) GLUCOSE RANDOM (BEAKER) 138 mg/dL 70-105 (test tjtx=231) CALCIUM (BEAKER) (test 8.9 mg/dL 8.4-10.2 akri=798) AST (SGOT) (BEAKER) (test 33 U/L 5-34 pqhs=104) ALT (SGPT) (BEAKER) (test 13 U/L 6-55 hiqw=994) EGFR (BEAKER) (test 33 mL/min/1.73 sq m ESTIMATED GFR IS NOT qzhw=5292) ACCURATE CREATININE CLEARANCE IN PREDICTING GLOMERULAR FILTRATION RATE. ESTIMATED GFR IS NOT APPLICABLE FOR DIALYSIS PATIENTS. Specimen slightly ictericPOCT-GLUCOSE [id number] 07:53:00 Test Item Value Reference Range Comments POC-GLUCOSE METER (BEAKER) 157 mg/dL 70-110 TESTED AT [address] (test ymmf=7505) [facility] [address] CBC (HEMOGRAM ONLY)2019-05-31 06:33:00 Test Item Value Reference Range Comments WHITE BLOOD CELL COUNT (BEAKER) (test rmvc=487) 5.7 K/ L 3.5-10.5 RED BLOOD CELL COUNT (BEAKER) (test frjf=265) 3.25 M/ L 3.93-5.22 HEMOGLOBIN (BEAKER) (test yika=814) 8.9 GM/DL 11.2-15.7 HEMATOCRIT (BEAKER) (test gczk=584) 28.3 % 34.1-44.9 MEAN CORPUSCULAR VOLUME (BEAKER) (test bvuu=221) 87.1 fL 79.4-94.8 MEAN CORPUSCULAR HEMOGLOBIN (BEAKER) (test 27.4 pg 25.6-32.2 vxgr=757) MEAN CORPUSCULAR HEMOGLOBIN CONC (BEAKER) (test 31.4 GM/DL 32.2-35.5 xzqk=724) RED CELL DISTRIBUTION WIDTH (BEAKER) (test 17.5 % 11.7-14.4 aumo=551) PLATELET COUNT (BEAKER) (test tfqu=073) 188 K/CU MM 150-450 MEAN PLATELET VOLUME (BEAKER) (test trey=242) 9.1 fL 9.4-12.3 NUCLEATED RED BLOOD CELLS (BEAKER) (test 0 /100 WBC 0-0 umzs=786) POCT-GLUCOSE [id number] 22:28:00 Test Item Value Reference Range Comments POC-GLUCOSE METER (BEAKER) 193 mg/dL 70-110 TESTED AT [address] (test rfky=2001) [facility] [address] POCT-GLUCOSE [id number] 17:19:00 Test Item Value Reference Range Comments POC-GLUCOSE METER (BEAKER) 155 mg/dL 70-110 TESTED AT [address] (test qytt=4484) [facility] [address] POCT-GLUCOSE [id number] 12:44:00 Test Item Value Reference Range Comments POC-GLUCOSE METER (BEAKER) 189 mg/dL 70-[address] [facility] [address] [facility] (test uyei=9427) [facility] [address] POCT-GLUCOSE [id number] 08:30:00 Test Item Value Reference Range Comments POC-GLUCOSE METER (BEAKER) 140 mg/dL 70-[address] [facility] [address] [facility] (test cdxd=8847) [facility] [address] [id number] 05:15:00 Test Item Value Reference Range Comments THYROID STIMULATING HORMONE (BEAKER) (test 6.32 uIU/mL 0.35-4.94 amui=779) T4, [id number] 05:11:00 Test Item Value Reference Range Comments FREE T4 (BEAKER) (test gjrz=261) 1.70 ng/dL 0.70-1.48 [id number] 04:53:00 Test Item Value Reference Range Comments PHOSPHORUS (BEAKER) (test rvnq=446) 2.4 mg/dL 2.3-4.7 [id number] 04:53:00 Test Item Value Reference Range Comments MAGNESIUM (BEAKER) (test yqtq=359) 1.8 mg/dL 1.6-2.6 COMPREHENSIVE METABOLIC [id number] 04:53:00 Test Item Value Reference Range Comments TOTAL PROTEIN (BEAKER) 5.1 gm/dL 6.0-8.3 (test keim=022) ALBUMIN (BEAKER) (test 2.9 g/dL 3.5-5.0 lthk=0828) ALKALINE PHOSPHATASE 101 U/L 40-150 (BEAKER) (test dfud=608) BILIRUBIN TOTAL (BEAKER) 1.6 mg/dL 0.2-1.2 (test yuqc=596) SODIUM (BEAKER) (test 137 meq/L 136-145 xzzv=786) POTASSIUM (BEAKER) (test 3.7 meq/L 3.5-5.1 gwzl=415) CHLORIDE (BEAKER) (test 99 meq/L 98-107 yqhw=196) CO2 (BEAKER) (test 32 meq/L 22-29 adqn=649) BLOOD UREA NITROGEN 20 mg/dL 7-21 (BEAKER) (test iikx=467) CREATININE (BEAKER) (test 1.55 mg/dL 0.57-1.25 alqr=975) GLUCOSE RANDOM (BEAKER) 157 mg/dL 70-105 (test gnbu=050) CALCIUM (BEAKER) (test 8.3 mg/dL 8.4-10.2 nwqy=649) AST (SGOT) (BEAKER) (test 33 U/L 5-34 vcsm=797) ALT (SGPT) (BEAKER) (test 12 U/L 6-55 ykgq=413) EGFR (BEAKER) (test 34 mL/min/1.73 sq m ESTIMATED GFR IS NOT itbf=9534) ACCURATE CREATININE CLEARANCE IN PREDICTING GLOMERULAR FILTRATION RATE. ESTIMATED GFR IS NOT APPLICABLE FOR DIALYSIS PATIENTS. CBC (HEMOGRAM ONLY)2019-05-30 04:13:00 Test Item Value Reference Range Comments WHITE BLOOD CELL COUNT (BEAKER) (test fumd=778) 5.3 K/ L 3.5-10.5 RED BLOOD CELL COUNT (BEAKER) (test fcqo=881) 2.75 M/ L 3.93-5.22 HEMOGLOBIN (BEAKER) (test ccxn=052) 7.6 GM/DL 11.2-15.7 HEMATOCRIT (BEAKER) (test zetj=134) 24.2 % 34.1-44.9 MEAN CORPUSCULAR VOLUME (BEAKER) (test ilit=529) 88.0 fL 79.4-94.8 MEAN CORPUSCULAR HEMOGLOBIN (BEAKER) (test 27.6 pg 25.6-32.2 kfsu=634) MEAN CORPUSCULAR HEMOGLOBIN CONC (BEAKER) (test 31.4 GM/DL 32.2-35.5 wuja=736) RED CELL DISTRIBUTION WIDTH (BEAKER) (test 17.4 % 11.7-14.4 ogmq=303) PLATELET COUNT (BEAKER) (test dumv=610) 162 K/CU MM 150-450 MEAN PLATELET VOLUME (BEAKER) (test twnz=948) 9.2 fL 9.4-12.3 NUCLEATED RED BLOOD CELLS (BEAKER) (test 0 /100 WBC 0-0 fijw=942) CALCIUM, [id number] 04:13:00 Test Item Value Reference Range Comments CALCIUM IONIZED (BEAKER) (test egfb=571) 0.98 mmol/L 1.12-1.27 PH, BLOOD (BEAKER) (test amzy=1049) 7.58 RAD, CHEST, 2 [id number] 23:47:00Reason for exam:->opacitiesFINAL REPORT Portable chest. HISTORY: [...] MDReport Verified Date/Time: 05/29/2019 23:47:08 Reading Location: [address] Consult Reading Room POCT-GLUCOSE [id number] 23:12:00 Test Item Value Reference Range Comments POC-GLUCOSE METER (BEAKER) 192 mg/dL 70-110 TESTED AT [address] (test curr=8921) [facility] [address] URINALYSIS W/ [id number] 18:14:00 Test Item Value Reference Range Comments COLOR (BEAKER) (test rllj=785) Yellow CLARITY (BEAKER) (test cgrd=724) Clear SPECIFIC GRAVITY UA (BEAKER) (test 1.011 1.001-1.035 cidp=055) PH UA (BEAKER) (test bpin=008) 8.5 5.0-8.0 PROTEIN UA (BEAKER) (test dgzn=585) 20 mg/dL Negative GLUCOSE UA (BEAKER) (test vgnt=339) Negative Negative KETONES UA (BEAKER) (test cojz=847) Negative Negative BILIRUBIN UA (BEAKER) (test wdhw=815) Negative Negative BLOOD UA (BEAKER) (test qdtl=370) Negative Negative NITRITE UA (BEAKER) (test bhln=919) Negative Negative LEUKOCYTE ESTERASE UA (BEAKER) (test Negative Negative ugjn=603) UROBILINOGEN UA (BEAKER) (test pkow=567) 12.0 mg/dL 0.2-1.0 RBC UA (BEAKER) (test yvrx=714) < /HPF WBC UA (BEAKER) (test gwse=894) 1 /HPF BACTERIA (BEAKER) (test mqyp=290) Rare SQUAMOUS EPITHELIAL (BEAKER) (test 3 /HPF xojx=859) SOURCE(BEAKER) (test iplt=6766) Urine, Clean Catch POCT-GLUCOSE [id number] 16:55:00 Test Item Value Reference Range Comments POC-GLUCOSE METER (BEAKER) 186 mg/dL 70-110 TESTED AT [address] (test wwmk=5873) [facility] [address] TISSUE [id number] 15:15:00Surgical Pathology Report Case: [id number] Authorizing Provider: Shannen Giron MD Collected: 05/28/2019 1448 Ordering Location: [address] Received: 05/29/2019 0915 Service Pathologist: Padilla Reed MD Specimen: Polyp, Colon - Right/Ascending, taken by doug pathak PART A RIGHT ASCENDING COLON POLYP, POLYPECTOMY:TUBULAR ADENOMA. Signing Pathologist Direct Phone Line: [phone] signed by Padilla Reed MD on 05/29/2019 at 3:15 [id number] colonoscopyRight ascending colonReceived in formalin, labelled with the patients name, date of , and medical record number and labelled "right ascending colon polyp" are three portions of silva tissue measuring 0.5 x 0.4 x 0.3 cm in aggregate. Submitted in toto in one cassette. Performed.BODY FLUID CULTURE + GRAM [id number] 12:56:00 Test Item Value Reference Range Comments CULTURE (BEAKER) (test vxvv=5402) No growth GRAM STAIN RESULT (BEAKER) (test No WBCs kmhc=8517) GRAM STAIN RESULT (BEAKER) (test No organisms seen epib=22099) POCT-GLUCOSE [id number] 12:37:00 Test Item Value Reference Range Comments POC-GLUCOSE METER (BEAKER) 154 mg/dL 70-110 TESTED AT [address] (test zlmq=3432) [place] [id number] POCT-GLUCOSE [id number] 09:12:00 Test Item Value Reference Range Comments POC-GLUCOSE METER (BEAKER) 76 mg/dL 70-110 TESTED AT [address] (test vhut=8023) [facility] [address] COMPREHENSIVE METABOLIC [id number] 08:19:00 Test Item Value Reference Range Comments TOTAL PROTEIN (BEAKER) 4.9 gm/dL 6.0-8.3 (test csly=597) ALBUMIN (BEAKER) (test 3.0 g/dL 3.5-5.0 nbne=9764) ALKALINE PHOSPHATASE 88 U/L 40-150 (BEAKER) (test knvr=055) BILIRUBIN TOTAL (BEAKER) 1.9 mg/dL 0.2-1.2 (test sfkk=563) SODIUM (BEAKER) (test 141 meq/L 136-145 fzrx=683) POTASSIUM (BEAKER) (test 3.5 meq/L 3.5-5.1 riue=661) CHLORIDE (BEAKER) (test 100 meq/L 98-107 auqd=481) CO2 (BEAKER) (test 34 meq/L 22-29 nxdr=472) BLOOD UREA NITROGEN 18 mg/dL 7-21 (BEAKER) (test mzrl=760) CREATININE (BEAKER) (test 1.50 mg/dL 0.57-1.25 etia=531) GLUCOSE RANDOM (BEAKER) 92 mg/dL 70-105 (test bpgc=345) CALCIUM (BEAKER) (test 8.5 mg/dL 8.4-10.2 cgup=931) AST (SGOT) (BEAKER) (test 27 U/L 5-34 dlpy=928) ALT (SGPT) (BEAKER) (test 10 U/L 6-55 smjh=206) EGFR (BEAKER) (test 35 mL/min/1.73 sq m ESTIMATED GFR IS NOT etdv=7334) ACCURATE CREATININE CLEARANCE IN PREDICTING GLOMERULAR FILTRATION RATE. ESTIMATED GFR IS NOT APPLICABLE FOR DIALYSIS PATIENTS. Specimen slightly [id number] 08:18:00 Test Item Value Reference Range Comments PHOSPHORUS (BEAKER) (test gfwr=890) 2.8 mg/dL 2.3-4.7 [id number] 08:18:00 Test Item Value Reference Range Comments MAGNESIUM (BEAKER) (test vbre=599) 2.0 mg/dL 1.6-2.6 CBC W/PLT COUNT & AUTO [id number] 05:59:00 Test Item Value Reference Range Comments WHITE BLOOD CELL COUNT (BEAKER) (test jpuf=448) 5.3 K/ L 3.5-10.5 RED BLOOD CELL COUNT (BEAKER) (test yjux=144) 2.79 M/ L 3.93-5.22 HEMOGLOBIN (BEAKER) (test nzml=556) 7.7 GM/DL 11.2-15.7 HEMATOCRIT (BEAKER) (test linm=076) 24.8 % 34.1-44.9 MEAN CORPUSCULAR VOLUME (BEAKER) (test gapq=751) 88.9 fL 79.4-94.8 MEAN CORPUSCULAR HEMOGLOBIN (BEAKER) (test 27.6 pg 25.6-32.2 yybp=568) MEAN CORPUSCULAR HEMOGLOBIN CONC (BEAKER) (test 31.0 GM/DL 32.2-35.5 mmju=521) RED CELL DISTRIBUTION WIDTH (BEAKER) (test 17.6 % 11.7-14.4 aiuu=608) PLATELET COUNT (BEAKER) (test goat=203) 146 K/CU MM 150-450 MEAN PLATELET VOLUME (BEAKER) (test frmm=106) 9.6 fL 9.4-12.3 NUCLEATED RED BLOOD CELLS (BEAKER) (test 0 /100 WBC 0-0 zlrk=969) NEUTROPHILS RELATIVE PERCENT (BEAKER) (test 46 % xbad=706) LYMPHOCYTES RELATIVE PERCENT (BEAKER) (test 31 % hvpn=012) MONOCYTES RELATIVE PERCENT (BEAKER) (test 11 % cpth=364) EOSINOPHILS RELATIVE PERCENT (BEAKER) (test 10 % nerh=396) BASOPHILS RELATIVE PERCENT (BEAKER) (test 2 % yqhf=577) NEUTROPHILS ABSOLUTE COUNT (BEAKER) (test 2.46 K/ L 1.56-6.13 twso=728) LYMPHOCYTES ABSOLUTE COUNT (BEAKER) (test 1.66 K/ L 1.18-3.74 vdir=112) MONOCYTES ABSOLUTE COUNT (BEAKER) (test 0.57 K/ L 0.24-0.36 fcte=141) EOSINOPHILS ABSOLUTE COUNT (BEAKER) (test 0.52 K/ L 0.04-0.36 vnup=226) BASOPHILS ABSOLUTE COUNT (BEAKER) (test 0.08 K/ L 0.01-0.08 xrnw=922) IMMATURE GRANULOCYTES-RELATIVE PERCENT (BEAKER) 0 % 0-1 (test wpct=2488) CALCIUM, [id number] 05:04:00 Test Item Value Reference Range Comments CALCIUM IONIZED (BEAKER) (test czxc=190) 1.02 mmol/L 1.12-1.27 PH, BLOOD (BEAKER) (test fmez=0437) 7.50 POCT-GLUCOSE [id number] 21:27:00 Test Item Value Reference Range Comments POC-GLUCOSE METER (BEAKER) 139 mg/dL 70-110 TESTED AT [address] (test tfke=9362) [place] [address] BASIC METABOLIC [id number] 18:28:00 Test Item Value Reference Range Comments SODIUM (BEAKER) (test 142 meq/L 136-145 fcvk=226) POTASSIUM (BEAKER) (test 3.5 meq/L 3.5-5.1 zvoc=989) CHLORIDE (BEAKER) (test 99 meq/L 98-107 dhav=042) CO2 (BEAKER) (test 37 meq/L 22-29 udpf=647) BLOOD UREA NITROGEN 17 mg/dL 7-21 (BEAKER) (test zjou=622) CREATININE (BEAKER) (test 1.38 mg/dL 0.57-1.25 tghr=925) GLUCOSE RANDOM (BEAKER) 78 mg/dL 70-105 (test czfs=282) CALCIUM (BEAKER) (test 8.5 mg/dL 8.4-10.2 yqhc=851) EGFR (BEAKER) (test 39 mL/min/1.73 sq m ESTIMATED GFR IS NOT gxyp=6325) ACCURATE CREATININE CLEARANCE IN PREDICTING GLOMERULAR FILTRATION RATE. ESTIMATED GFR IS NOT APPLICABLE FOR DIALYSIS PATIENTS. Call [id number] with resultsSpecimen slightly ictericPOCT-GLUCOSE [id number] 18:10:00 Test Item Value Reference Range Comments POC-GLUCOSE METER (BEAKER) 82 mg/dL 70-110 TESTED AT [address] (test ykuk=8353) [place] [id number] CBC W/PLT COUNT & AUTO [id number] 11:56:00 Test Item Value Reference Range Comments WHITE BLOOD CELL COUNT (BEAKER) (test ygen=284) 5.0 K/ L 3.5-10.5 RED BLOOD CELL COUNT (BEAKER) (test atsw=535) 2.82 M/ L 3.93-5.22 HEMOGLOBIN (BEAKER) (test gpvx=332) 7.9 GM/DL 11.2-15.7 HEMATOCRIT (BEAKER) (test skmo=932) 25.0 % 34.1-44.9 MEAN CORPUSCULAR VOLUME (BEAKER) (test rebm=637) 88.7 fL 79.4-94.8 MEAN CORPUSCULAR HEMOGLOBIN (BEAKER) (test 28.0 pg 25.6-32.2 tasr=498) MEAN CORPUSCULAR HEMOGLOBIN CONC (BEAKER) (test 31.6 GM/DL 32.2-35.5 pxcl=939) RED CELL DISTRIBUTION WIDTH (BEAKER) (test 17.6 % 11.7-14.4 misn=677) PLATELET COUNT (BEAKER) (test xrim=934) 155 K/CU MM 150-450 MEAN PLATELET VOLUME (BEAKER) (test cpyj=449) 9.5 fL 9.4-12.3 NUCLEATED RED BLOOD CELLS (BEAKER) (test 0 /100 WBC 0-0 kvdn=311) (CELLAVISION MANUAL DIFF)2019-05-28 11:56:00 Test Item Value Reference Range Comments NEUTROPHILS - REL (CELLAVISION)(BEAKER) (test 69 % sixr=5188) LYMPHOCYTES - REL (CELLAVISION)(BEAKER) (test 21 % jbft=4379) MONOCYTES - REL (CELLAVISION)(BEAKER) (test 3 % itvy=3255) EOSINOPHILS - REL (CELLAVISION)(BEAKER) (test 5 % vhfn=2230) BASOPHILS - REL (CELLAVISION)(BEAKER) (test 1 % lekk=5437) MYELOCYTES - REL (CELLAVISION)(BEAKER) (test 1 % 0-0 hjmw=4007) NEUTROPHILS - ABS (CELLAVISION)(BEAKER) (test 3.45 K/ul 1.56-6.13 gjnj=0807) LYMPHOCYTES - ABS (CELLAVISION)(BEAKER) (test 1.05 K/ul 1.18-3.74 wemp=9413) MONOCYTES - ABS (CELLAVISION)(BEAKER) (test 0.15 K/uL 0.24-0.36 buth=5741) EOSINOPHILS - ABS (CELLAVISION)(BEAKER) (test 0.25 K/uL 0.04-0.36 qyjl=3732) BASOPHILS - ABS (CELLAVISION)(BEAKER) (test 0.05 K/uL 0.01-0.08 fhab=2404) MYELOCYTES-ABS (CELLAVISION)(BEAKER) (test 0.05 K/uL 0.00-0.00 dcoz=9923) TOTAL COUNTED (BEAKER) (test cnve=5035) 100 PLT MORPHOLOGY (BEAKER) (test vwmn=332) Normal SMUDGE CELLS (BEAKER) (test rzsg=2112) Present POLYCHROMATOPHILLIC RBCS(BEAKER) (test dewc=486) 1+ few ANISOCYTOSIS (BEAKER) (test aegu=591) 2+ moderate MICROCYTES (BEAKER) (test ztcc=477) 2+ moderate POIKILOCYTES (BEAKER) (test bgsk=381) 1+ few SPHEROCYTES (BEAKER) (test exja=957) 1+ few PLATELET CONCENTRATION (CELLAVISION)(BEAKER) Adequate (test fxok=9025) Received comment: User comments: Slide comments:POCT-GLUCOSE [id number] 10: 05:00 Test Item Value Reference Range Comments POC-GLUCOSE METER (BEAKER) 82 mg/dL 70-110 TESTED AT [address] (test lejm=9481) [facility] [address] POCT-GLUCOSE [id number] 09:07:00 Test Item Value Reference Range Comments POC-GLUCOSE METER (BEAKER) 84 mg/dL 70-110 TESTED AT [address] (test itwc=2857) [facility] [address] [id number] 06:31:00 Test Item Value Reference Range Comments PHOSPHORUS (BEAKER) (test twui=158) 2.5 mg/dL 2.3-4.7 [id number] 06:31:00 Test Item Value Reference Range Comments MAGNESIUM (BEAKER) (test vdzz=322) 1.7 mg/dL 1.6-2.6 COMPREHENSIVE METABOLIC [id number] 06:31:00 Test Item Value Reference Range Comments TOTAL PROTEIN (BEAKER) 4.9 gm/dL 6.0-8.3 (test quck=790) ALBUMIN (BEAKER) (test 3.1 g/dL 3.5-5.0 tkxv=4729) ALKALINE PHOSPHATASE 82 U/L 40-150 (BEAKER) (test omkl=554) BILIRUBIN TOTAL (BEAKER) 2.3 mg/dL 0.2-1.2 (test lhrv=731) SODIUM (BEAKER) (test 143 meq/L 136-145 gniy=425) POTASSIUM (BEAKER) (test 3.5 meq/L 3.5-5.1 ensn=021) CHLORIDE (BEAKER) (test 100 meq/L 98-107 fzyj=284) CO2 (BEAKER) (test 37 meq/L 22-29 mdig=639) BLOOD UREA NITROGEN 16 mg/dL 7-21 (BEAKER) (test azxm=428) CREATININE (BEAKER) (test 1.37 mg/dL 0.57-1.25 skbc=381) GLUCOSE RANDOM (BEAKER) 96 mg/dL 70-105 (test ygtj=885) CALCIUM (BEAKER) (test 8.6 mg/dL 8.4-10.2 eukx=209) AST (SGOT) (BEAKER) (test 30 U/L 5-34 vlpe=639) ALT (SGPT) (BEAKER) (test 10 U/L 6-55 mxmk=919) EGFR (BEAKER) (test 39 mL/min/1.73 sq m ESTIMATED GFR IS NOT kxki=5493) ACCURATE CREATININE CLEARANCE IN PREDICTING GLOMERULAR FILTRATION RATE. ESTIMATED GFR IS NOT APPLICABLE FOR DIALYSIS PATIENTS. Specimen slightly ictericB-TYPE NATRIURETIC FACTOR (BNP)2019-05-28 06:19:00 Test Item Value Reference Range Comments B-TYPE NATRIURETIC PEPTIDE (BEAKER) (test 381 pg/mL 0-100 hqtj=152) CALCIUM, [id number] 05:25:00 Test Item Value Reference Range Comments CALCIUM IONIZED (BEAKER) (test qygk=254) 1.03 mmol/L 1.12-1.27 PH, BLOOD (BEAKER) (test irai=6957) 7.49 POCT-GLUCOSE [id number] 22:42:00 Test Item Value Reference Range Comments POC-GLUCOSE METER (BEAKER) 174 mg/dL 70-110 TESTED AT [address] (test lzwi=8286) [facility] [address] [id number] 17:57:00 Test Item Value Reference Range Comments SODIUM (BEAKER) (test elpq=463) 140 meq/L 136-145 POTASSIUM (BEAKER) (test 3.9 meq/L 3.5-5.1 Specimen slightly hemolyzed xaph=170) CHLORIDE (BEAKER) (test 99 meq/L 98-107 giqo=375) CO2 (BEAKER) (test socm=323) 35 meq/L 22-29 Call [id number] 17:50:00 Test Item Value Reference Range Comments POC-GLUCOSE METER (BEAKER) 151 mg/dL 70-110 TESTED AT [address] (test joks=1821) [place] [id number] POCT-GLUCOSE [id number] 12:36:00 Test Item Value Reference Range Comments POC-GLUCOSE METER (BEAKER) 123 mg/dL 70-110 TESTED AT [address] (test wcmr=2738) [place] [id number] POCT-GLUCOSE [id number] 08:15:00 Test Item Value Reference Range Comments POC-GLUCOSE METER (BEAKER) 121 mg/dL 70-110 TESTED AT [address] (test dubg=8780) [place] [id number] [id number] 07:00:00 Test Item Value Reference Range Comments PHOSPHORUS (BEAKER) (test sxpt=470) 1.9 mg/dL 2.3-4.7 [id number] 07:00:00 Test Item Value Reference Range Comments MAGNESIUM (BEAKER) (test uxvz=605) 1.6 mg/dL 1.6-2.6 COMPREHENSIVE METABOLIC [id number] 07:00:00 Test Item Value Reference Range Comments TOTAL PROTEIN (BEAKER) 4.9 gm/dL 6.0-8.3 (test wadk=998) ALBUMIN (BEAKER) (test 3.1 g/dL 3.5-5.0 rabc=8907) ALKALINE PHOSPHATASE 75 U/L 40-150 (BEAKER) (test mhjn=635) BILIRUBIN TOTAL (BEAKER) 1.9 mg/dL 0.2-1.2 (test clie=069) SODIUM (BEAKER) (test 139 meq/L 136-145 mndv=222) POTASSIUM (BEAKER) (test 4.3 meq/L 3.5-5.1 hptz=564) CHLORIDE (BEAKER) (test 99 meq/L 98-107 fumm=443) CO2 (BEAKER) (test 37 meq/L 22-29 vase=050) BLOOD UREA NITROGEN 16 mg/dL 7-21 (BEAKER) (test cink=973) CREATININE (BEAKER) (test 1.29 mg/dL 0.57-1.25 cnvi=158) GLUCOSE RANDOM (BEAKER) 139 mg/dL 70-105 (test bzfr=278) CALCIUM (BEAKER) (test 8.5 mg/dL 8.4-10.2 kswo=666) AST (SGOT) (BEAKER) (test 23 U/L 5-34 gyno=215) ALT (SGPT) (BEAKER) (test 8 U/L 6-55 xdif=604) EGFR (BEAKER) (test 42 mL/min/1.73 sq m ESTIMATED GFR IS NOT qgyk=7187) ACCURATE CREATININE CLEARANCE IN PREDICTING GLOMERULAR FILTRATION RATE. ESTIMATED GFR IS NOT APPLICABLE FOR DIALYSIS PATIENTS. Specimen slightly ictericCBC W/PLT COUNT & AUTO [id number] 06:20 :00 Test Item Value Reference Range Comments WHITE BLOOD CELL COUNT (BEAKER) (test tyjq=719) 4.7 K/ L 3.5-10.5 RED BLOOD CELL COUNT (BEAKER) (test exds=115) 2.71 M/ L 3.93-5.22 HEMOGLOBIN (BEAKER) (test pndl=706) 7.5 GM/DL 11.2-15.7 HEMATOCRIT (BEAKER) (test itxk=474) 23.9 % 34.1-44.9 MEAN CORPUSCULAR VOLUME (BEAKER) (test tgje=143) 88.2 fL 79.4-94.8 MEAN CORPUSCULAR HEMOGLOBIN (BEAKER) (test 27.7 pg 25.6-32.2 kwyw=738) MEAN CORPUSCULAR HEMOGLOBIN CONC (BEAKER) (test 31.4 GM/DL 32.2-35.5 bxnj=111) RED CELL DISTRIBUTION WIDTH (BEAKER) (test 17.6 % 11.7-14.4 bavn=401) PLATELET COUNT (BEAKER) (test cyek=237) 137 K/CU MM 150-450 MEAN PLATELET VOLUME (BEAKER) (test svat=831) 9.6 fL 9.4-12.3 NUCLEATED RED BLOOD CELLS (BEAKER) (test 0 /100 WBC 0-0 litl=191) NEUTROPHILS RELATIVE PERCENT (BEAKER) (test 45 % iuey=928) LYMPHOCYTES RELATIVE PERCENT (BEAKER) (test 33 % dcmz=009) MONOCYTES RELATIVE PERCENT (BEAKER) (test 12 % jxro=904) EOSINOPHILS RELATIVE PERCENT (BEAKER) (test 9 % rzla=147) BASOPHILS RELATIVE PERCENT (BEAKER) (test 1 % fnrr=564) NEUTROPHILS ABSOLUTE COUNT (BEAKER) (test 2.13 K/ L 1.56-6.13 ogiu=436) LYMPHOCYTES ABSOLUTE COUNT (BEAKER) (test 1.56 K/ L 1.18-3.74 ezeo=231) MONOCYTES ABSOLUTE COUNT (BEAKER) (test 0.57 K/ L 0.24-0.36 dchx=694) EOSINOPHILS ABSOLUTE COUNT (BEAKER) (test 0.41 K/ L 0.04-0.36 mizl=052) BASOPHILS ABSOLUTE COUNT (BEAKER) (test 0.05 K/ L 0.01-0.08 flvw=536) IMMATURE GRANULOCYTES-RELATIVE PERCENT (BEAKER) 0 % 0-1 (test fwse=5919) CALCIUM, [id number] 05:29:00 Test Item Value Reference Range Comments CALCIUM IONIZED (BEAKER) (test ojre=659) 1.02 mmol/L 1.12-1.27 PH, BLOOD (BEAKER) (test cxdp=2735) 7.53 POCT-GLUCOSE [id number] 22:13:00 Test Item Value Reference Range Comments POC-GLUCOSE METER (BEAKER) 315 mg/dL 70-110 Notified ALEXI ENNIS/TESTED AT [facility] (test rhgm=9981) [address] [facility] [address] POCT-GLUCOSE [id number] 18:43:00 Test Item Value Reference Range Comments POC-GLUCOSE METER (BEAKER) 204 mg/dL 70-110 TESTED AT [address] (test wgvi=5634) [facility] [address] U/S, [id number] 17:14:00Reason for exam:->ascitesFINAL REPORT Ultrasound guided paracentesis. Clinical History: Ascites. Sedation: None. Operators: This procedure was performed by SARIKA Lee under direct supervision of Akil Chung M.D. Pipe Organ Mechanic: None. Estimated Blood Loss: < 1 cc. [...] was achieved with 2% lidocaine, a 5 [place] one-step catheter was advanced into the peritoneal cavity under ultrasound guidance. After completion of drainage, the catheter was removed. There was no evidence of complication. Impression:Successful ultrasound guided paracentesis. Signed: Akil Chung MDReport Verified Date/Time: 05/26/2019 17:14:25 Reading Location : [address] Ultrasound Reading Room U/S, [id number] 17:12:00Reason for exam:->ascitesFINAL REPORT Ultrasound guided paracentesis Clinical History: Ascites. Sedation: None. Print Color Operator: Micheline Pena PA-C Supervising Physician: Shravan Ruiz MD Pipe Organ Mechanic: None. Estimated Blood Loss: < 1 mL. [...] anesthesia was achieved with lidocaine, a 5 [place] one-step catheter was advanced into theperitoneal cavity under ultrasound guidance. After completion of drainage, the catheter was removed.There was no evidence of complication. Impression:Successful ultrasound guided paracentesis. Signed:Shravan Ruiz Verified Date/Time: 05/26/2019 17:12:51 Reading Location: [address] Ultrasound Reading Room POCT-GLUCOSE [id number] 17:02: 00 Test Item Value Reference Range Comments POC-GLUCOSE METER (BEAKER) 204 mg/dL 70-110 TESTED AT [address] (test qmlh=1415) [place] [address] POCT-GLUCOSE [id number] 13:52:00 Test Item Value Reference Range Comments POC-GLUCOSE METER (BEAKER) 185 mg/dL 70-110 TESTED AT [address] (test usgq=0724) [place] [address] BODY FLUID CELL COUNT WITH [id number] 13:12:00 Test Item Value Reference Range Comments APPEARANCE FLUID (BEAKER) (test kvum=038) Slightly Hazy Clear COLOR FLUID (BEAKER) (test irdc=002) Yellow Colorless, Straw RBC FLUID (BEAKER) (test giwm=196) 3000 /cu mm <=1 ADJUSTED WBC FLUID (BEAKER) (test teta=1997) 107 /cu mm <=5 LINING CELLS (BEAKER) (test ipma=9122) 13 /cu mm <=1 NEUTROPHILS FLUID (BEAKER) (test ggff=5405) 0 % LYMPHS FLUID (BEAKER) (test wwvp=401) 21 % MONO/MACROPHAGE FLUID (BEAKER) (test 78 % tdoo=707) EOSINOPHILS FLUID (BEAKER) (test vzqw=994) 1 % BASO FLUID (BEAKER) (test rntg=078) 0 % CONTAINER BODY FLUID (BEAKER) (test EDTA Tube iynb=3020) POCT-GLUCOSE [id number] 08:40:00 Test Item Value Reference Range Comments POC-GLUCOSE METER (BEAKER) 113 mg/dL 70-110 TESTED AT [address] (test tkfa=6222) [place] [address] [id number] 07:18:00 Test Item Value Reference Range Comments T3 TOTAL (BEAKER) (test 34 ng/dL 48-159 Performed at [facility] Refer. rbcx=186) Range:76-181 [id number] 05:45:00 Test Item Value Reference Range Comments PHOSPHORUS (BEAKER) (test suyk=439) 1.7 mg/dL 2.3-4.7 [id number] 05:45:00 Test Item Value Reference Range Comments MAGNESIUM (BEAKER) (test ssvt=023) 1.8 mg/dL 1.6-2.6 COMPREHENSIVE METABOLIC [id number] 05:45:00 Test Item Value Reference Range Comments TOTAL PROTEIN (BEAKER) 5.1 gm/dL 6.0-8.3 (test uwhf=144) ALBUMIN (BEAKER) (test 3.1 g/dL 3.5-5.0 galt=3397) ALKALINE PHOSPHATASE 88 U/L 40-150 (BEAKER) (test zcid=154) BILIRUBIN TOTAL (BEAKER) 1.6 mg/dL 0.2-1.2 (test eisj=199) SODIUM (BEAKER) (test 140 meq/L 136-145 dirm=698) POTASSIUM (BEAKER) (test 3.8 meq/L 3.5-5.1 egya=230) CHLORIDE (BEAKER) (test 100 meq/L 98-107 xvok=579) CO2 (BEAKER) (test 36 meq/L 22-29 yjxg=182) BLOOD UREA NITROGEN 16 mg/dL 7-21 (BEAKER) (test fzvu=912) CREATININE (BEAKER) (test 1.37 mg/dL 0.57-1.25 vxbo=005) GLUCOSE RANDOM (BEAKER) 159 mg/dL 70-105 (test fmuq=869) CALCIUM (BEAKER) (test 8.4 mg/dL 8.4-10.2 oxqi=480) AST (SGOT) (BEAKER) (test 26 U/L 5-34 nydy=737) ALT (SGPT) (BEAKER) (test 10 U/L 6-55 wizo=468) EGFR (BEAKER) (test 39 mL/min/1.73 sq m ESTIMATED GFR IS NOT tuqt=0210) ACCURATE CREATININE CLEARANCE IN PREDICTING GLOMERULAR FILTRATION RATE. ESTIMATED GFR IS NOT APPLICABLE FOR DIALYSIS PATIENTS. CALCIUM, [id number] 05:11:00 Test Item Value Reference Range Comments CALCIUM IONIZED (BEAKER) (test mdcj=447) 0.99 mmol/L 1.12-1.27 PH, BLOOD (BEAKER) (test tmhp=6114) 7.57 CBC W/PLT COUNT & AUTO [id number] 05:04:00 Test Item Value Reference Range Comments WHITE BLOOD CELL COUNT (BEAKER) (test potf=030) 4.6 K/ L 3.5-10.5 RED BLOOD CELL COUNT (BEAKER) (test ylof=679) 2.81 M/ L 3.93-5.22 HEMOGLOBIN (BEAKER) (test eytm=902) 7.8 GM/DL 11.2-15.7 HEMATOCRIT (BEAKER) (test qzec=049) 24.6 % 34.1-44.9 MEAN CORPUSCULAR VOLUME (BEAKER) (test hvfj=552) 87.5 fL 79.4-94.8 MEAN CORPUSCULAR HEMOGLOBIN (BEAKER) (test 27.8 pg 25.6-32.2 esev=256) MEAN CORPUSCULAR HEMOGLOBIN CONC (BEAKER) (test 31.7 GM/DL 32.2-35.5 dbmt=236) RED CELL DISTRIBUTION WIDTH (BEAKER) (test 17.2 % 11.7-14.4 wyqg=071) PLATELET COUNT (BEAKER) (test czyy=249) 129 K/CU MM 150-450 MEAN PLATELET VOLUME (BEAKER) (test kvwz=516) 9.0 fL 9.4-12.3 NUCLEATED RED BLOOD CELLS (BEAKER) (test 0 /100 WBC 0-0 cpef=249) NEUTROPHILS RELATIVE PERCENT (BEAKER) (test 47 % ckqh=410) LYMPHOCYTES RELATIVE PERCENT (BEAKER) (test 29 % pogq=211) MONOCYTES RELATIVE PERCENT (BEAKER) (test 13 % hhnr=176) EOSINOPHILS RELATIVE PERCENT (BEAKER) (test 11 % jyvi=334) BASOPHILS RELATIVE PERCENT (BEAKER) (test 1 % jfhu=767) NEUTROPHILS ABSOLUTE COUNT (BEAKER) (test 2.17 K/ L 1.56-6.13 rlbn=335) LYMPHOCYTES ABSOLUTE COUNT (BEAKER) (test 1.32 K/ L 1.18-3.74 lqwp=844) MONOCYTES ABSOLUTE COUNT (BEAKER) (test 0.58 K/ L 0.24-0.36 qqmr=231) EOSINOPHILS ABSOLUTE COUNT (BEAKER) (test 0.49 K/ L 0.04-0.36 aica=937) BASOPHILS ABSOLUTE COUNT (BEAKER) (test 0.06 K/ L 0.01-0.08 kiux=196) IMMATURE GRANULOCYTES-RELATIVE PERCENT (BEAKER) 0 % 0-1 (test inqi=2552) POCT-GLUCOSE [id number] 23:10:00 Test Item Value Reference Range Comments POC-GLUCOSE METER (BEAKER) 239 mg/dL 70-110 TESTED AT [address] (test fawu=2391) [place] [id number] 19:02:00 Test Item Value Reference Range Comments SODIUM (BEAKER) (test tdpj=284) 138 meq/L 136-145 POTASSIUM (BEAKER) (test psom=053) 3.7 meq/L 3.5-5.1 CHLORIDE (BEAKER) (test wyeo=499) 100 meq/L 98-107 CO2 (BEAKER) (test pssv=836) 31 meq/L 22-29 Call [id number] with resultsPOCT-GLUCOSE [id number] 16:50:00 Test Item Value Reference Range Comments POC-GLUCOSE METER (BEAKER) 203 mg/dL 70-110 TESTED AT [address] (test evjw=9167) [place] [address] POCT-GLUCOSE [id number] 12:49:00 Test Item Value Reference Range Comments POC-GLUCOSE METER (BEAKER) 219 mg/dL 70-110 TESTED AT [address] (test vyrz=8436) [place] [address] ANTI-NUCLEAR ANTIBODY (QUE)2019-05-25 10:03:00 Test Item Value Reference Range Comments ANTI-NUCLEAR ANTIBODY (QUE) (BEAKER) (test Negative Negative qvdf=531) Test performed by IFA method.Test performed by IFA method.POCT-GLUCOSE [id number] 08:54:00 Test Item Value Reference Range Comments POC-GLUCOSE METER (BEAKER) 125 mg/dL 70-110 TESTED AT [address] (test opha=6593) [place] [address] BASIC METABOLIC [id number] 07:41:00 Test Item Value Reference Range Comments SODIUM (BEAKER) (test 141 meq/L 136-145 jhrs=554) POTASSIUM (BEAKER) (test 3.0 meq/L 3.5-5.1 ouko=616) CHLORIDE (BEAKER) (test 101 meq/L 98-107 jpze=838) CO2 (BEAKER) (test 35 meq/L 22-29 vcch=615) BLOOD UREA NITROGEN 16 mg/dL 7-21 (BEAKER) (test tocs=866) CREATININE (BEAKER) (test 1.31 mg/dL 0.57-1.25 wzyw=340) GLUCOSE RANDOM (BEAKER) 136 mg/dL 70-105 (test agri=981) CALCIUM (BEAKER) (test 7.9 mg/dL 8.4-10.2 ewim=517) EGFR (BEAKER) (test 41 mL/min/1.73 sq m ESTIMATED GFR IS NOT wgbe=5411) ACCURATE CREATININE CLEARANCE IN PREDICTING GLOMERULAR FILTRATION RATE. ESTIMATED GFR IS NOT APPLICABLE FOR DIALYSIS PATIENTS. [id number] 07:32:00 Test Item Value Reference Range Comments PHOSPHORUS (BEAKER) (test vyho=479) 2.0 mg/dL 2.3-4.7 [id number] 07:32:00 Test Item Value Reference Range Comments MAGNESIUM (BEAKER) (test fgls=115) 1.6 mg/dL 1.6-2.6 HEPATIC FUNCTION [id number] 07:32:00 Test Item Value Reference Range Comments TOTAL PROTEIN (BEAKER) (test nfbg=407) 4.9 gm/dL 6.0-8.3 ALBUMIN (BEAKER) (test isue=5862) 3.0 g/dL 3.5-5.0 BILIRUBIN TOTAL (BEAKER) (test qcxb=497) 1.4 mg/dL 0.2-1.2 BILIRUBIN DIRECT (BEAKER) (test iulj=923) 0.7 mg/dL 0.1-0.5 ALKALINE PHOSPHATASE (BEAKER) (test hlhv=020) 86 U/L 40-150 AST (SGOT) (BEAKER) (test nmle=601) 25 U/L 5-34 ALT (SGPT) (BEAKER) (test gpii=843) 10 U/L 6-55 CBC W/PLT COUNT & AUTO [id number] 06:11:00 Test Item Value Reference Range Comments WHITE BLOOD CELL COUNT (BEAKER) (test mswy=701) 4.2 K/ L 3.5-10.5 RED BLOOD CELL COUNT (BEAKER) (test nbej=665) 2.68 M/ L 3.93-5.22 HEMOGLOBIN (BEAKER) (test hmbl=984) 7.4 GM/DL 11.2-15.7 HEMATOCRIT (BEAKER) (test smde=304) 23.5 % 34.1-44.9 MEAN CORPUSCULAR VOLUME (BEAKER) (test uesb=991) 87.7 fL 79.4-94.8 MEAN CORPUSCULAR HEMOGLOBIN (BEAKER) (test 27.6 pg 25.6-32.2 pfnt=747) MEAN CORPUSCULAR HEMOGLOBIN CONC (BEAKER) (test 31.5 GM/DL 32.2-35.5 mzdp=914) RED CELL DISTRIBUTION WIDTH (BEAKER) (test 18.2 % 11.7-14.4 mqoi=952) PLATELET COUNT (BEAKER) (test hmcy=893) 140 K/CU MM 150-450 MEAN PLATELET VOLUME (BEAKER) (test hnse=280) 10.3 fL 9.4-12.3 NUCLEATED RED BLOOD CELLS (BEAKER) (test 0 /100 WBC 0-0 ahyr=350) NEUTROPHILS RELATIVE PERCENT (BEAKER) (test 44 % jana=936) LYMPHOCYTES RELATIVE PERCENT (BEAKER) (test 33 % xuiz=675) MONOCYTES RELATIVE PERCENT (BEAKER) (test 12 % czyc=856) EOSINOPHILS RELATIVE PERCENT (BEAKER) (test 10 % cwwp=782) BASOPHILS RELATIVE PERCENT (BEAKER) (test 2 % uuag=697) NEUTROPHILS ABSOLUTE COUNT (BEAKER) (test 1.82 K/ L 1.56-6.13 wqgv=315) LYMPHOCYTES ABSOLUTE COUNT (BEAKER) (test 1.36 K/ L 1.18-3.74 txrv=541) MONOCYTES ABSOLUTE COUNT (BEAKER) (test 0.48 K/ L 0.24-0.36 emut=356) EOSINOPHILS ABSOLUTE COUNT (BEAKER) (test 0.42 K/ L 0.04-0.36 bgow=674) BASOPHILS ABSOLUTE COUNT (BEAKER) (test 0.07 K/ L 0.01-0.08 vfno=007) IMMATURE GRANULOCYTES-RELATIVE PERCENT (BEAKER) 0 % 0-1 (test agbc=6642) PROTHROMBIN [id number] 05:31:00 Test Item Value Reference Range Comments PROTIME (BEAKER) (test qfgn=565) 14.8 seconds 11.9-14.2 INR (BEAKER) (test jieh=092) 1.2 <=5.9 Effective 04/01/2019: PT Reference Range ChangeNew: 11.9-14.2 Previous: 11.7- 14.7RECOMMENDED COUMADIN/WARFARIN INR THERAPY RANGESSTANDARD DOSE: 2.0-3.0 Includes: PROPHYLAXIS for venous thrombosis, systemic embolization; TREATMENT for venous thrombosis and/or pulmonary embolus.HIGH RISK: Target INR is2.5-3.5 for patients wiht mechanical heart valves.BLOOD [id number] 02:01:00 Test Item Value Reference Range Comments CULTURE (BEAKER) (test ikgn=0433) No growth in 5 days BLOOD [id number] 02:01:00 Test Item Value Reference Range Comments CULTURE (BEAKER) (test cijm=9296) No growth in 5 days POCT-GLUCOSE [id number] 23:07:00 Test Item Value Reference Range Comments POC-GLUCOSE METER (BEAKER) 217 mg/dL 70-110 TESTED AT [address] (test lmkq=4989) [place] [id number] POCT-GLUCOSE [id number] 17:54:00 Test Item Value Reference Range Comments POC-GLUCOSE METER (BEAKER) 138 mg/dL 70-110 TESTED AT [address] (test aotj=7444) [place] [id number] POCT-GLUCOSE [id number] 12:22:00 Test Item Value Reference Range Comments POC-GLUCOSE METER (BEAKER) 114 mg/dL 70-110 TESTED AT [address] (test hear=4074) [place] [id number] POCT-GLUCOSE [id number] 07:39:00 Test Item Value Reference Range Comments POC-GLUCOSE METER (BEAKER) 124 mg/dL 70-110 TESTED AT [address] (test tfhh=7960) [place] [id number] HEPATIC FUNCTION [id number] 05:49:00 Test Item Value Reference Range Comments TOTAL PROTEIN (BEAKER) (test ozmq=288) 5.1 gm/dL 6.0-8.3 ALBUMIN (BEAKER) (test zfbo=3179) 2.9 g/dL 3.5-5.0 BILIRUBIN TOTAL (BEAKER) (test zndb=888) 1.3 mg/dL 0.2-1.2 BILIRUBIN DIRECT (BEAKER) (test fyrl=320) 0.7 mg/dL 0.1-0.5 ALKALINE PHOSPHATASE (BEAKER) (test nrta=436) 91 U/L 40-150 AST (SGOT) (BEAKER) (test gvlh=928) 30 U/L 5-34 ALT (SGPT) (BEAKER) (test aqjt=754) 10 U/L 6-55 BASIC METABOLIC [id number] 05:49:00 Test Item Value Reference Range Comments SODIUM (BEAKER) (test 140 meq/L 136-145 ircv=510) POTASSIUM (BEAKER) (test 3.2 meq/L 3.5-5.1 czyl=947) CHLORIDE (BEAKER) (test 103 meq/L 98-107 mvwb=024) CO2 (BEAKER) (test 27 meq/L 22-29 zila=582) BLOOD UREA NITROGEN 17 mg/dL 7-21 (BEAKER) (test fwde=747) CREATININE (BEAKER) (test 1.30 mg/dL 0.57-1.25 spkr=884) GLUCOSE RANDOM (BEAKER) 143 mg/dL 70-105 (test elhh=158) CALCIUM (BEAKER) (test 7.9 mg/dL 8.4-10.2 oxqu=057) EGFR (BEAKER) (test 42 mL/min/1.73 sq m ESTIMATED GFR IS NOT waxs=9449) ACCURATE CREATININE CLEARANCE IN PREDICTING GLOMERULAR FILTRATION RATE. ESTIMATED GFR IS NOT APPLICABLE FOR DIALYSIS PATIENTS. PROTHROMBIN [id number] 05:32:00 Test Item Value Reference Range Comments PROTIME (BEAKER) (test ywfj=232) 14.7 seconds 11.9-14.2 INR (BEAKER) (test duib=845) 1.2 <=5.9 Effective 04/01/2019: PT Reference Range ChangeNew: 11.9-14.2 Previous: 11.7- 14.7RECOMMENDED COUMADIN/WARFARIN INR THERAPY RANGESSTANDARD DOSE: 2.0-3.0 Includes: PROPHYLAXIS for venous thrombosis, systemic embolization; TREATMENT for venous thrombosis and/or pulmonary embolus.HIGH RISK: Target INR is2.5-3.5 for patients wiht mechanical heart valves.CBC W/PLT COUNT & AUTO [id number] 05:09:00 Test Item Value Reference Range Comments WHITE BLOOD CELL COUNT (BEAKER) (test smta=410) 4.7 K/ L 3.5-10.5 RED BLOOD CELL COUNT (BEAKER) (test zwnz=697) 2.86 M/ L 3.93-5.22 HEMOGLOBIN (BEAKER) (test sfpi=183) 7.9 GM/DL 11.2-15.7 HEMATOCRIT (BEAKER) (test bkfw=551) 25.3 % 34.1-44.9 MEAN CORPUSCULAR VOLUME (BEAKER) (test ezqb=019) 88.5 fL 79.4-94.8 MEAN CORPUSCULAR HEMOGLOBIN (BEAKER) (test 27.6 pg 25.6-32.2 uuiu=925) MEAN CORPUSCULAR HEMOGLOBIN CONC (BEAKER) (test 31.2 GM/DL 32.2-35.5 lqdr=154) RED CELL DISTRIBUTION WIDTH (BEAKER) (test 17.4 % 11.7-14.4 gfao=651) PLATELET COUNT (BEAKER) (test ldwp=597) 141 K/CU MM 150-450 MEAN PLATELET VOLUME (BEAKER) (test bptl=323) 9.3 fL 9.4-12.3 NUCLEATED RED BLOOD CELLS (BEAKER) (test 0 /100 WBC 0-0 mgom=745) NEUTROPHILS RELATIVE PERCENT (BEAKER) (test 50 % yyak=744) LYMPHOCYTES RELATIVE PERCENT (BEAKER) (test 28 % whrd=885) MONOCYTES RELATIVE PERCENT (BEAKER) (test 11 % hcwv=710) EOSINOPHILS RELATIVE PERCENT (BEAKER) (test 10 % bmuv=295) BASOPHILS RELATIVE PERCENT (BEAKER) (test 1 % otet=696) NEUTROPHILS ABSOLUTE COUNT (BEAKER) (test 2.33 K/ L 1.56-6.13 leok=716) LYMPHOCYTES ABSOLUTE COUNT (BEAKER) (test 1.31 K/ L 1.18-3.74 oktr=490) MONOCYTES ABSOLUTE COUNT (BEAKER) (test 0.51 K/ L 0.24-0.36 bbaa=581) EOSINOPHILS ABSOLUTE COUNT (BEAKER) (test 0.46 K/ L 0.04-0.36 sbhm=034) BASOPHILS ABSOLUTE COUNT (BEAKER) (test 0.06 K/ L 0.01-0.08 rwkk=465) IMMATURE GRANULOCYTES-RELATIVE PERCENT (BEAKER) 0 % 0-1 (test nhud=8899) BLOOD GAS, [id number] 22:21:00 Test Item Value Reference Range Comments PH ARTERIAL (BEAKER) (test xwwg=842) 7.49 7.35-7.45 PCO2 ARTERIAL (BEAKER) (test ojsh=285) 43 mmHg 35-45 PO2 ARTERIAL (BEAKER) (test gjqy=764) 56 mmHg 80-90 O2 SATURATION ARTERIAL (BEAKER) (test xxbw=294) 92.5 % 96.0-97.0 HCO3 ARTERIAL (BEAKER) (test wpjq=515) 32 mmol/L 21-29 BASE EXCESS ARTERIAL (BEAKER) (test vauw=236) 7.9 mmol/L -2.0-3.0 PATIENT TEMPERATURE (BEAKER) (test pajp=9957) 35.8 C FIO2 (BEAKER) (test eukh=9051) 21.0 % POCT-GLUCOSE [id number] 21:14:00 Test Item Value Reference Range Comments POC-GLUCOSE METER (BEAKER) 259 mg/dL 70-110 TESTED AT [address] (test pjsb=0762) [place] [address] BODY FLUID CULTURE + GRAM [id number] 18:00:00 Test Item Value Reference Range Comments CULTURE (BEAKER) (test jiko=3002) No growth GRAM STAIN RESULT (BEAKER) (test No WBCs eloy=3056) GRAM STAIN RESULT (BEAKER) (test No organisms seen btii=77801) POCT-GLUCOSE [id number] 17:23:00 Test Item Value Reference Range Comments POC-GLUCOSE METER (BEAKER) 201 mg/dL 70-110 TESTED AT [address] (test jlqn=8282) [place] [address] RAD, MANDIBLE, MIN 4 [id number] 15:00:00Reason for exam:->liver transplant evalShould this be [...] Martinez MDReport Verified Date/Time: 05/23/201915:00:10 Reading Location: [address] Transitional Reading Room CRYPTOCOCCAL [id number] 14:59:00 Test Item Value Reference Range Comments CRYPTOCOCCAL ANTIGEN, SERUM (BEAKER) (test Negative Negative, Interference imbw=2495) [id number] 14:45:00 Test Item Value Reference Range Comments RPR SCREEN (BEAKER) (test buyo=813) Nonreactive Nonreactive CYTOMEGALOVIRUS ANTIBODY, [id number] 13:48:00 Test Item Value Reference Range Comments CYTOMEGALOVIRUS, IGG (BEAKER) (test bxgo=6517) Positive Negative, Equivocal CMV IgG Result Interpretation: </=0.8 Al Negative 0.9-1.0 Al Equivocal &gt ;/=1.1 Al PositiveCYTOMEGALOVIRUS ANTIBODY, [id number] 13:48:00 Test Item Value Reference Range Comments CYTOMEGALOVIRUS IGM ANTIBODY (BEAKER) (test Negative Negative, Equivocal etzc=8376) CMV IgM Result Interpretation: </=0.8 Al Negative 0.9-1.0 Al Equivocal >/=1.1 Al PositiveEBV ANTIBODY, [id number] 13:48:00 Test Item Value Reference Range Comments BERTRAND BOLES VIRAL CAPSID ANTIGEN IGG (BEAKER) Positive Negative, Equivocal (test mamv=0518) Bertrand Boles Viral Capsid Antigen IgG Result Interpretation: </=0.8 Al Negative 0.9-1.0 Al Equivocal >/=1.1 Al PositiveEBV ANTIBODY, [id number] 13:48:00 Test Item Value Reference Range Comments BERTRAND BOLES VIRAL CAPSID ANTIGEN IGM (BEAKER) Negative Negative, Equivocal (test htio=7848) Bertrand Boles Viral Capsid Antigen IgM Result Interpretation: </=0.8 Al Negative 0.9-1.0 Al Equivocal >/=1.1 Al PositiveVARICELLA ZOSTER ANTIBODY , [id number] 13:48:00 Test Item Value Reference Range Comments VARICELLA ZOSTER IGG (AL) (BEAKER) (test wjzm=5261) 0.9 VARICELLA ZOSTER RESULT INTERPRETATIONS: <=0.8 Al Nonreactive: Presumed non-immune to VZV 0.9-1.0 Al Equivocal >=1.1 Al Reactive: Presumed immune to VZVRUBELLA ANTIBODY, [id number] 13:48:00 Test Item Value Reference Range Comments RUBELLA IGG QUANTITATION (AKER) (test nqqd=095) 12.0 IU/mL <8.0 Rubella IgG Result Interpretation: </=7.0 IU/mL Negative - Presumed non- immune 8.0 - 9.9 IU/mL Equivocal >=10.0 IU/mL Positive - Presumed immunePOCT-GLUCOSE [id number] 11:41:00 Test Item Value Reference Range Comments POC-GLUCOSE METER (BEAKER) 162 mg/dL 70-110 TESTED AT [address] (test xoex=1449) [facility] [address] POCT-GLUCOSE [id number] 10:06:00 Test Item Value Reference Range Comments POC-GLUCOSE METER (BEAKER) 95 mg/dL 70-110 TESTED AT [address] (test actq=2384) [place] [id number] IRON, TIBC, % SAT. (WITHOUT FERRITIN)2019-05-23 07:32:00 Test Item Value Reference Range Comments IRON (BEAKER) (test nbse=668) 30.0 ug/dL 40.0-160.0 TOTAL IRON BINDING CAPACITY (BEAKER) (test 143 ug/dL 250-450 pihi=766) IRON % SATURATION (2) (BEAKER) (test uwtd=0110) 21 % 20-55 [id number] 06:29:00 Test Item Value Reference Range Comments PHOSPHORUS (BEAKER) (test pith=237) 1.9 mg/dL 2.3-4.7 [id number] 06:29:00 Test Item Value Reference Range Comments MAGNESIUM (BEAKER) (test igyl=353) 1.5 mg/dL 1.6-2.6 HEPATIC FUNCTION [id number] 06:29:00 Test Item Value Reference Range Comments TOTAL PROTEIN (BEAKER) (test yybl=662) 5.2 gm/dL 6.0-8.3 ALBUMIN (BEAKER) (test xowo=2220) 3.0 g/dL 3.5-5.0 BILIRUBIN TOTAL (BEAKER) (test mzub=776) 1.6 mg/dL 0.2-1.2 BILIRUBIN DIRECT (BEAKER) (test dagw=854) 0.8 mg/dL 0.1-0.5 ALKALINE PHOSPHATASE (BEAKER) (test ycwl=508) 87 U/L 40-150 AST (SGOT) (BEAKER) (test vdds=356) 24 U/L 5-34 ALT (SGPT) (BEAKER) (test kqry=068) 11 U/L 6-55 COMPREHENSIVE METABOLIC [id number] 06:29:00 Test Item Value Reference Range Comments TOTAL PROTEIN (BEAKER) 5.2 gm/dL 6.0-8.3 (test aqxu=489) ALBUMIN (BEAKER) (test 3.0 g/dL 3.5-5.0 vyen=1417) ALKALINE PHOSPHATASE 87 U/L 40-150 (BEAKER) (test xgbh=796) BILIRUBIN TOTAL (BEAKER) 1.6 mg/dL 0.2-1.2 (test kagf=195) SODIUM (BEAKER) (test 139 meq/L 136-145 pnyz=324) POTASSIUM (BEAKER) (test 3.3 meq/L 3.5-5.1 xozg=283) CHLORIDE (BEAKER) (test 104 meq/L 98-107 mmjs=870) CO2 (BEAKER) (test 30 meq/L 22-29 xdbd=675) BLOOD UREA NITROGEN 18 mg/dL 7-21 (BEAKER) (test wlol=814) CREATININE (BEAKER) (test 1.41 mg/dL 0.57-1.25 pqhc=588) GLUCOSE RANDOM (BEAKER) 102 mg/dL 70-105 (test kelq=793) CALCIUM (BEAKER) (test 8.1 mg/dL 8.4-10.2 kqlp=390) AST (SGOT) (BEAKER) (test 24 U/L 5-34 iozg=781) ALT (SGPT) (BEAKER) (test 11 U/L 6-55 htnz=502) EGFR (BEAKER) (test 38 mL/min/1.73 sq m ESTIMATED GFR IS NOT lbcf=0677) ACCURATE CREATININE CLEARANCE IN PREDICTING GLOMERULAR FILTRATION RATE. ESTIMATED GFR IS NOT APPLICABLE FOR DIALYSIS PATIENTS. CBC W/PLT COUNT & AUTO [id number] 05:46:00 Test Item Value Reference Range Comments WHITE BLOOD CELL COUNT (BEAKER) (test eiao=781) 4.9 K/ L 3.5-10.5 RED BLOOD CELL COUNT (BEAKER) (test bktf=907) 2.83 M/ L 3.93-5.22 HEMOGLOBIN (BEAKER) (test rair=808) 8.0 GM/DL 11.2-15.7 HEMATOCRIT (BEAKER) (test vazk=180) 24.4 % 34.1-44.9 MEAN CORPUSCULAR VOLUME (BEAKER) (test bkod=913) 86.2 fL 79.4-94.8 MEAN CORPUSCULAR HEMOGLOBIN (BEAKER) (test 28.3 pg 25.6-32.2 drxn=463) MEAN CORPUSCULAR HEMOGLOBIN CONC (BEAKER) (test 32.8 GM/DL 32.2-35.5 meak=509) RED CELL DISTRIBUTION WIDTH (BEAKER) (test 17.6 % 11.7-14.4 mqht=562) PLATELET COUNT (BEAKER) (test dbqy=559) 147 K/CU MM 150-450 MEAN PLATELET VOLUME (BEAKER) (test kuox=961) 9.1 fL 9.4-12.3 NUCLEATED RED BLOOD CELLS (BEAKER) (test 0 /100 WBC 0-0 soig=589) NEUTROPHILS RELATIVE PERCENT (BEAKER) (test 51 % dvra=505) LYMPHOCYTES RELATIVE PERCENT (BEAKER) (test 27 % iyvh=767) MONOCYTES RELATIVE PERCENT (BEAKER) (test 11 % egno=354) EOSINOPHILS RELATIVE PERCENT (BEAKER) (test 10 % wdvi=307) BASOPHILS RELATIVE PERCENT (BEAKER) (test 1 % atkl=356) NEUTROPHILS ABSOLUTE COUNT (BEAKER) (test 2.51 K/ L 1.56-6.13 nezk=741) LYMPHOCYTES ABSOLUTE COUNT (BEAKER) (test 1.30 K/ L 1.18-3.74 ynld=267) MONOCYTES ABSOLUTE COUNT (BEAKER) (test 0.54 K/ L 0.24-0.36 ifsi=050) EOSINOPHILS ABSOLUTE COUNT (BEAKER) (test 0.48 K/ L 0.04-0.36 watd=419) BASOPHILS ABSOLUTE COUNT (BEAKER) (test 0.06 K/ L 0.01-0.08 mpqi=627) IMMATURE GRANULOCYTES-RELATIVE PERCENT (BEAKER) 0 % 0-1 (test gntn=0281) PROTHROMBIN [id number] 05:46:00 Test Item Value Reference Range Comments PROTIME (BEAKER) (test eioo=860) 14.9 seconds 11.9-14.2 INR (BEAKER) (test pexp=586) 1.2 <=5.9 Effective 04/01/2019: PT Reference Range ChangeNew: 11.9-14.2 Previous: 11.7- 14.7RECOMMENDED COUMADIN/WARFARIN INR THERAPY RANGESSTANDARD DOSE: 2.0-3.0 Includes: PROPHYLAXIS for venous thrombosis, systemic embolization; TREATMENT for venous thrombosis and/or pulmonary embolus.HIGH RISK: Target INR is2.5-3.5 for patients wiht mechanical heart valves.CALCIUM, [id number] 05:44:00 Test Item Value Reference Range Comments CALCIUM IONIZED (BEAKER) (test drrd=310) 0.99 mmol/L 1.12-1.27 PH, BLOOD (BEAKER) (test wwqe=0656) 7.48 HEMOGLOBIN [id number] 22:07:00 Test Item Value Reference Range Comments HEMOGLOBIN A1C (BEAKER) (test cgbi=651) 8.1 % 4.3-6.1 POCT-GLUCOSE [id number] 21:38:00 Test Item Value Reference Range Comments POC-GLUCOSE METER (BEAKER) 213 mg/dL 70-110 TESTED AT [address] (test viep=1051) [facility] [address] POCT-GLUCOSE [id number] 18:07:00 Test Item Value Reference Range Comments POC-GLUCOSE METER (BEAKER) 212 mg/dL 70-110 TESTED AT [address] (test xhgl=5258) [facility] [address] ALPHA FETOPROTEIN (AFP), TUMOR [id number] 17:50:00 Test Item Value Reference Range Comments ALPHA-FETOPROTEIN (BEAKER) (test moih=1804) < ng/mL <10.0 HEPATITIS C [id number] 17:49:00 Test Item Value Reference Range Comments HEPATITIS C ANTIBODY (BEAKER) (test gbgi=868) Nonreactive Nonreactive VITAMIN D, [id number] 15:10:00 Test Item Value Reference Range Comments VITAMIN D 25-OH (BEAKER) (test rkeb=7133) < ng/mL 6.6-49.9 Effective 08/14/2017: Reference Range ChangeNew: 6.6-49.9 ng/mL Previous: 13.0 -47.8 ng/mLRecommended Vitamin D Target Range: 30.0-40.0 ng/mLHEPATITIS B SURFACE [id number] 15:10:00 Test Item Value Reference Range Comments HEPATITIS B SURFACE ANTIBODY (BEAKER) (test < mIU/mL <8.0 oplr=079) CARCINOEMBRYONIC ANTIGEN (CEA)2019-05-22 15:10:00 Test Item Value Reference Range Comments CARCINOEMBRYONIC ANTIGEN (BEAKER) (test ktpw=356) < ng/mL 0.0-5.0 HEPATITIS B CORE ANTIBODY, [id number] 15:08:00 Test Item Value Reference Range Comments HEPATITIS B CORE IGM ANTIBODY (BEAKER) (test Nonreactive Nonreactive nrgz=990) HEPATITIS A ANTIBODY, [id number] 15:08:00 Test Item Value Reference Range Comments HEPATITIS A IGM ANTIBODY (BEAKER) (test Nonreactive Nonreactive arxr=975) HEPATITIS A ANTIBODY, [id number] 15:08:00 Test Item Value Reference Range Comments HEPATITIS A IGG ANTIBODY (BEAKER) (test Nonreactive Nonreactive wpic=4029) HEPATITIS B SURFACE [id number] 15:05:00 Test Item Value Reference Range Comments HEPATITIS B SURFACE ANTIGEN (2) (BEAKER) (test Nonreactive Nonreactive xqzn=1174) HEPATITIS B CORE ANTIBODY, [id number] 15:05:00 Test Item Value Reference Range Comments HEPATITIS B CORE TOTAL ANTIBODY (BEAKER) (test Nonreactive Nonreactive enak=916) HIV-1 ANTIGEN WITH HIV-1/2 [id number] 15:05:00 Test Item Value Reference Range Comments HIV-1 ANTIGEN WITH HIV 1\\T\\2 ANTIBODY (2) Nonreactive Nonreactive (BEAKER) (test puxl=7777) URIC [id number] 14:46:00 Test Item Value Reference Range Comments URIC ACID (BEAKER) (test kxcp=952) 5.7 mg/dL 2.6-7.2 LIPID [id number] 14:46:00 Test Item Value Reference Range Comments TRIGLYCERIDES (BEAKER) (test kvsj=836) 71 mg/dL CHOLESTEROL (BEAKER) (test ekvp=841) 72 mg/dL HDL CHOLESTEROL (BEAKER) (test jwto=626) 20 mg/dL LDL CHOLESTEROL CALCULATED (BEAKER) (test rxcb=792) 38 mg/dL Triglyceride Reference Range: Low Risk <150 Borderline 150- 199 High Risk 200-499 Very High Risk >=500Cholesterol Reference Range: Low Risk <200 Borderline 200-239 High Risk > 240HDL Cholesterol Reference Range: Low Risk >=60 High Risk <40LDL Cholesterol Reference Range: Optimal <100 Near Optimal 100-129 Borderline 130-159 High 160-189 Very High >=190BILIRUBIN, [id number] 14:46:00 Test Item Value Reference Range Comments BILIRUBIN DIRECT (BEAKER) (test qake=273) 0.8 mg/dL 0.1-0.5 GAMMA GLUTAMYL TRANSFERASE (GGT)2019-05-22 14:46:00 Test Item Value Reference Range Comments GAMMA GLUTAMYL TRANSFERASE (BEAKER) (test gghj=728) 10 U/L 9-64 [id number] 14:45:00 Test Item Value Reference Range Comments ETHANOL (BEAKER) (test xzha=254) < mg/dL <=10 [id number] 14:44:00 Test Item Value Reference Range Comments TRANSFERRIN (BEAKER) (test bser=543) 109 mg/dL 174-382 IRON, TIBC, % SAT. (WITHOUT FERRITIN)2019-05-22 14:44:00 Test Item Value Reference Range Comments IRON (BEAKER) (test jwjz=511) 40.0 ug/dL 40.0-160.0 TOTAL IRON BINDING CAPACITY (BEAKER) (test 136 ug/dL 250-450 marz=683) IRON % SATURATION (2) (BEAKER) (test dtoz=6554) 29 % 20-55 [id number] 14:34:00 Test Item Value Reference Range Comments PARTIAL THROMBOPLASTIN TIME (DAKOTAH) (test 35.7 seconds 22.5-36.0 qlmp=881) [id number] 14:33:00 Test Item Value Reference Range Comments FIBRINOGEN LEVEL (DAKOTAH) (test wgwk=861) 282 mg/dl 225-434 U/S, ABDOMINAL, WITH [id number] 14:09:00Reason for exam:->TIPS evaluationFINAL REPORT Ultrasound of [...] MDReport Verified Date/Time: 05/22/2019 14:09:52 Reading Location: [address] Radiology Reading Room Electronically signed by: MISSY MOMIN M.D. on 2018 02:09 PMPOCT-GLUCOSE [id number] 12:31:00 Test Item Value Reference Range Comments POC-GLUCOSE METER (BEAKER) 252 mg/dL 70-[address] [facility] [address] [facility] (test zgne=0580) [facility] [address] COMPREHENSIVE METABOLIC [id number] 08:22:00 Test Item Value Reference Range Comments TOTAL PROTEIN (BEAKER) 4.8 gm/dL 6.0-8.3 (test rdrs=178) ALBUMIN (BEAKER) (test 3.0 g/dL 3.5-5.0 psat=7052) ALKALINE PHOSPHATASE 77 U/L 40-150 (BEAKER) (test qxfr=196) BILIRUBIN TOTAL (BEAKER) 1.6 mg/dL 0.2-1.2 (test gijw=496) SODIUM (BEAKER) (test 141 meq/L 136-145 memp=511) POTASSIUM (BEAKER) (test 3.1 meq/L 3.5-5.1 jkub=731) CHLORIDE (BEAKER) (test 105 meq/L 98-107 xzeb=276) CO2 (BEAKER) (test 31 meq/L 22-29 bwec=501) BLOOD UREA NITROGEN 18 mg/dL 7-21 (BEAKER) (test awij=032) CREATININE (BEAKER) (test 1.50 mg/dL 0.57-1.25 elyp=116) GLUCOSE RANDOM (BEAKER) 145 mg/dL 70-105 (test gfad=801) CALCIUM (BEAKER) (test 7.9 mg/dL 8.4-10.2 alja=254) AST (SGOT) (BEAKER) (test 23 U/L 5-34 oedz=881) ALT (SGPT) (BEAKER) (test 7 U/L 6-55 wojj=136) EGFR (BEAKER) (test 35 mL/min/1.73 sq m ESTIMATED GFR IS NOT unoi=7441) ACCURATE CREATININE CLEARANCE IN PREDICTING GLOMERULAR FILTRATION RATE. ESTIMATED GFR IS NOT APPLICABLE FOR DIALYSIS PATIENTS. [id number] 08:19:00 Test Item Value Reference Range Comments PHOSPHORUS (BEAKER) (test irsj=600) 2.2 mg/dL 2.3-4.7 [id number] 08:19:00 Test Item Value Reference Range Comments MAGNESIUM (BEAKER) (test rxka=219) 1.5 mg/dL 1.6-2.6 HEPATIC FUNCTION [id number] 08:19:00 Test Item Value Reference Range Comments TOTAL PROTEIN (BEAKER) (test mfsj=615) 4.8 gm/dL 6.0-8.3 ALBUMIN (BEAKER) (test dzju=4503) 3.0 g/dL 3.5-5.0 BILIRUBIN TOTAL (BEAKER) (test cvgu=906) 1.6 mg/dL 0.2-1.2 BILIRUBIN DIRECT (BEAKER) (test mlke=119) 0.7 mg/dL 0.1-0.5 ALKALINE PHOSPHATASE (BEAKER) (test zmzj=232) 77 U/L 40-150 AST (SGOT) (BEAKER) (test lzhe=945) 23 U/L 5-34 ALT (SGPT) (BEAKER) (test monr=577) 7 U/L 6-55 POCT-GLUCOSE [id number] 08:08:00 Test Item Value Reference Range Comments POC-GLUCOSE METER (BEAKER) 154 mg/dL 70-[address] [facility] [address] [place] [address] (test asgt=5576) [facility] [address] B-TYPE NATRIURETIC FACTOR (BNP)2019-05-22 06:18:00 Test Item Value Reference Range Comments B-TYPE NATRIURETIC PEPTIDE (BEAKER) (test 411 pg/mL 0-100 zczf=599) PROTHROMBIN [id number] 06:00:00 Test Item Value Reference Range Comments PROTIME (BEAKER) (test nyum=793) 14.9 seconds 11.9-14.2 INR (BEAKER) (test mwjh=016) 1.2 <=5.9 Effective 04/01/2019: PT Reference Range ChangeNew: 11.9-14.2 Previous: 11.7- 14.7RECOMMENDED COUMADIN/WARFARIN INR THERAPY RANGESSTANDARD DOSE: 2.0-3.0 Includes: PROPHYLAXIS for venous thrombosis, systemic embolization; TREATMENT for venous thrombosis and/or pulmonary embolus.HIGH RISK: Target INR is2.5-3.5 for patients wiht mechanical heart valves.CALCIUM, [id number] 05:48:00 Test Item Value Reference Range Comments CALCIUM IONIZED (BEAKER) (test vydo=094) 1.04 mmol/L 1.12-1.27 PH, BLOOD (BEAKER) (test yubs=4400) 7.40 CBC W/PLT COUNT & AUTO [id number] 05:45:00 Test Item Value Reference Range Comments WHITE BLOOD CELL COUNT (BEAKER) (test clke=062) 4.1 K/ L 3.5-10.5 RED BLOOD CELL COUNT (BEAKER) (test lvyb=207) 2.71 M/ L 3.93-5.22 HEMOGLOBIN (BEAKER) (test ultl=694) 7.4 GM/DL 11.2-15.7 HEMATOCRIT (BEAKER) (test jtaq=268) 23.6 % 34.1-44.9 MEAN CORPUSCULAR VOLUME (BEAKER) (test ekgk=158) 87.1 fL 79.4-94.8 MEAN CORPUSCULAR HEMOGLOBIN (BEAKER) (test 27.3 pg 25.6-32.2 hbyk=379) MEAN CORPUSCULAR HEMOGLOBIN CONC (BEAKER) (test 31.4 GM/DL 32.2-35.5 xemn=427) RED CELL DISTRIBUTION WIDTH (BEAKER) (test 17.2 % 11.7-14.4 kujy=804) PLATELET COUNT (BEAKER) (test xniu=361) 126 K/CU MM 150-450 MEAN PLATELET VOLUME (BEAKER) (test qsmp=453) 9.2 fL 9.4-12.3 NUCLEATED RED BLOOD CELLS (BEAKER) (test 0 /100 WBC 0-0 wfmi=454) NEUTROPHILS RELATIVE PERCENT (BEAKER) (test 49 % nppj=451) LYMPHOCYTES RELATIVE PERCENT (BEAKER) (test 29 % trec=388) MONOCYTES RELATIVE PERCENT (BEAKER) (test 12 % excc=579) EOSINOPHILS RELATIVE PERCENT (BEAKER) (test 8 % lbqy=077) BASOPHILS RELATIVE PERCENT (BEAKER) (test 1 % nkql=046) NEUTROPHILS ABSOLUTE COUNT (BEAKER) (test 2.03 K/ L 1.56-6.13 hixf=413) LYMPHOCYTES ABSOLUTE COUNT (BEAKER) (test 1.21 K/ L 1.18-3.74 pahe=992) MONOCYTES ABSOLUTE COUNT (BEAKER) (test 0.51 K/ L 0.24-0.36 inyn=826) EOSINOPHILS ABSOLUTE COUNT (BEAKER) (test 0.34 K/ L 0.04-0.36 xjsz=864) BASOPHILS ABSOLUTE COUNT (BEAKER) (test 0.04 K/ L 0.01-0.08 qwkh=192) IMMATURE GRANULOCYTES-RELATIVE PERCENT (BEAKER) 0 % 0-1 (test yspj=9724) POCT-GLUCOSE [id number] 21:52:00 Test Item Value Reference Range Comments POC-GLUCOSE METER (BEAKER) 241 mg/dL 70-110 TESTED AT [address] (test ezzg=8008) [place] [address] POCT-GLUCOSE [id number] 17:36:00 Test Item Value Reference Range Comments POC-GLUCOSE METER (BEAKER) 291 mg/dL 70-110 TESTED AT [address] (test yegk=1149) [place] [id number] BODY FLUID CELL COUNT WITH [id number] 13:52:00 Test Item Value Reference Range Comments APPEARANCE FLUID (BEAKER) (test srvm=428) Clear Clear COLOR FLUID (BEAKER) (test wssp=035) Yellow Colorless, Straw RBC FLUID (BEAKER) (test fleo=750) 1815 /cu mm <=1 ADJUSTED WBC FLUID (BEAKER) (test dvrf=7744) 79 /cu mm <=5 LINING CELLS (BEAKER) (test faoo=0552) 14 /cu mm <=1 NEUTROPHILS FLUID (BEAKER) (test iafp=5981) 0 % LYMPHS FLUID (BEAKER) (test zncj=322) 25 % MONO/MACROPHAGE FLUID (BEAKER) (test bnby=518) 74 % EOSINOPHILS FLUID (BEAKER) (test mudb=812) 1 % BASO FLUID (BEAKER) (test xiff=552) 0 % CONTAINER BODY FLUID (BEAKER) (test ppsx=8906) EDTA Tube HEMOGLOBIN [id number] 13:47:00 Test Item Value Reference Range Comments HEMOGLOBIN A1C (BEAKER) (test besx=337) 8.4 % 4.3-6.1 POCT-GLUCOSE [id number] 11:56:00 Test Item Value Reference Range Comments POC-GLUCOSE METER (BEAKER) 223 mg/dL 70-[address] [facility] [address] [facility] (test xlsz=6256) [facility] [address] POCT-GLUCOSE [id number] 08:31:00 Test Item Value Reference Range Comments POC-GLUCOSE METER (BEAKER) 257 mg/dL 70-[address] [facility] [address] [facility] (test agxe=7673) [facility] [address] T4, [id number] 08:29:00 Test Item Value Reference Range Comments FREE T4 (BEAKER) (test nixb=036) 0.41 ng/dL 0.70-1.48 BASIC METABOLIC [id number] 08:28:00 Test Item Value Reference Range Comments SODIUM (BEAKER) (test 136 meq/L 136-145 aswv=343) POTASSIUM (BEAKER) (test 3.4 meq/L 3.5-5.1 wmvi=668) CHLORIDE (BEAKER) (test 104 meq/L 98-107 zmcr=334) CO2 (BEAKER) (test 27 meq/L 22-29 gxhq=277) BLOOD UREA NITROGEN 18 mg/dL 7-21 (BEAKER) (test oshg=053) CREATININE (BEAKER) (test 1.57 mg/dL 0.57-1.25 sxju=614) GLUCOSE RANDOM (BEAKER) 235 mg/dL 70-105 (test rpek=138) CALCIUM (BEAKER) (test 7.8 mg/dL 8.4-10.2 hikb=798) EGFR (BEAKER) (test 33 mL/min/1.73 sq m ESTIMATED GFR IS NOT lysa=4238) ACCURATE CREATININE CLEARANCE IN PREDICTING GLOMERULAR FILTRATION RATE. ESTIMATED GFR IS NOT APPLICABLE FOR DIALYSIS PATIENTS. Specimen slightly [id number] 08:14:00 Test Item Value Reference Range Comments PHOSPHORUS (BEAKER) (test wcab=356) 2.4 mg/dL 2.3-4.7 [id number] 08:14:00 Test Item Value Reference Range Comments MAGNESIUM (BEAKER) (test ynzx=927) 1.5 mg/dL 1.6-2.6 HEPATIC FUNCTION [id number] 08:14:00 Test Item Value Reference Range Comments TOTAL PROTEIN (BEAKER) (test oxrz=950) 5.1 gm/dL 6.0-8.3 ALBUMIN (BEAKER) (test ujbn=2326) 2.5 g/dL 3.5-5.0 BILIRUBIN TOTAL (BEAKER) (test uwes=836) 1.3 mg/dL 0.2-1.2 BILIRUBIN DIRECT (BEAKER) (test jpxr=473) 0.7 mg/dL 0.1-0.5 ALKALINE PHOSPHATASE (BEAKER) (test ecpj=486) 107 U/L 40-150 AST (SGOT) (BEAKER) (test qmdy=959) 27 U/L 5-34 ALT (SGPT) (BEAKER) (test tevb=894) 11 U/L 6-55 Specimen slightly ictericTSH/FREE T4 IF [id number] 07:00:00 Test Item Value Reference Range Comments THYROID STIMULATING HORMONE (BEAKER) (test 59.61 uIU/mL 0.35-4.94 nwxe=528) PROTHROMBIN [id number] 05:56:00 Test Item Value Reference Range Comments PROTIME (BEAKER) (test awtk=621) 14.3 seconds 11.9-14.2 INR (BEAKER) (test kyog=700) 1.2 <=5.9 Effective 04/01/2019: PT Reference Range ChangeNew: 11.9-14.2 Previous: 11.7- 14.7RECOMMENDED COUMADIN/WARFARIN INR THERAPY RANGESSTANDARD DOSE: 2.0-3.0 Includes: PROPHYLAXIS for venous thrombosis, systemic embolization; TREATMENT for venous thrombosis and/or pulmonary embolus.HIGH RISK: Target INR is2.5-3.5 for patients wiht mechanical heart valves.CALCIUM, [id number] 05:43:00 Test Item Value Reference Range Comments CALCIUM IONIZED (BEAKER) (test ieqg=406) 0.97 mmol/L 1.12-1.27 PH, BLOOD (BEAKER) (test lulo=5620) 7.45 CBC W/PLT COUNT & AUTO [id number] 05:21:00 Test Item Value Reference Range Comments WHITE BLOOD CELL COUNT (BEAKER) (test jnnb=233) 5.5 K/ L 3.5-10.5 RED BLOOD CELL COUNT (BEAKER) (test emmo=234) 3.06 M/ L 3.93-5.22 HEMOGLOBIN (BEAKER) (test momj=902) 8.3 GM/DL 11.2-15.7 HEMATOCRIT (BEAKER) (test ajvg=399) 26.3 % 34.1-44.9 MEAN CORPUSCULAR VOLUME (BEAKER) (test etgt=886) 85.9 fL 79.4-94.8 MEAN CORPUSCULAR HEMOGLOBIN (BEAKER) (test 27.1 pg 25.6-32.2 aziu=543) MEAN CORPUSCULAR HEMOGLOBIN CONC (BEAKER) (test 31.6 GM/DL 32.2-35.5 zboa=279) RED CELL DISTRIBUTION WIDTH (BEAKER) (test 17.2 % 11.7-14.4 qhjc=142) PLATELET COUNT (BEAKER) (test cdkh=098) 154 K/CU MM 150-450 MEAN PLATELET VOLUME (BEAKER) (test bxyi=429) 8.9 fL 9.4-12.3 NUCLEATED RED BLOOD CELLS (BEAKER) (test 0 /100 WBC 0-0 mmdg=871) NEUTROPHILS RELATIVE PERCENT (BEAKER) (test 61 % kbbb=637) LYMPHOCYTES RELATIVE PERCENT (BEAKER) (test 21 % hmrr=428) MONOCYTES RELATIVE PERCENT (BEAKER) (test 10 % djip=902) EOSINOPHILS RELATIVE PERCENT (BEAKER) (test 8 % oqml=546) BASOPHILS RELATIVE PERCENT (BEAKER) (test 1 % lvoi=255) NEUTROPHILS ABSOLUTE COUNT (BEAKER) (test 3.33 K/ L 1.56-6.13 kvcl=628) LYMPHOCYTES ABSOLUTE COUNT (BEAKER) (test 1.13 K/ L 1.18-3.74 suns=746) MONOCYTES ABSOLUTE COUNT (BEAKER) (test 0.55 K/ L 0.24-0.36 fqhd=000) EOSINOPHILS ABSOLUTE COUNT (BEAKER) (test 0.42 K/ L 0.04-0.36 kcwu=013) BASOPHILS ABSOLUTE COUNT (BEAKER) (test 0.06 K/ L 0.01-0.08 xpzs=660) IMMATURE GRANULOCYTES-RELATIVE PERCENT (BEAKER) 0 % 0-1 (test jtxo=0992) POCT-GLUCOSE [id number] 21:18:00 Test Item Value Reference Range Comments POC-GLUCOSE METER (BEAKER) 258 mg/dL 70-110 TESTED AT [address] (test zlrh=8718) [facility] [address] POCT-GLUCOSE [id number] 17:42:00 Test Item Value Reference Range Comments POC-GLUCOSE METER (BEAKER) 232 mg/dL 70-110 TESTED AT [address] (test wtig=9493) [facility] [address] POCT-GLUCOSE [id number] 12:51:00 Test Item Value Reference Range Comments POC-GLUCOSE METER (BEAKER) 206 mg/dL 70-110 TESTED AT [address] (test hvnf=8755) [facility] [address] POCT-GLUCOSE [id number] 07:53:00 Test Item Value Reference Range Comments POC-GLUCOSE METER (BEAKER) 219 mg/dL 70-110 TESTED AT [address] (test mimk=1186) [facility] [address] COMPREHENSIVE METABOLIC [id number] 06:52:00 Test Item Value Reference Range Comments TOTAL PROTEIN (BEAKER) 4.9 gm/dL 6.0-8.3 (test xovz=523) ALBUMIN (BEAKER) (test 2.3 g/dL 3.5-5.0 favq=8690) ALKALINE PHOSPHATASE 119 U/L 40-150 (BEAKER) (test qdby=896) BILIRUBIN TOTAL (BEAKER) 1.1 mg/dL 0.2-1.2 (test nmqq=136) SODIUM (BEAKER) (test 135 meq/L 136-145 wsvd=735) POTASSIUM (BEAKER) (test 4.0 meq/L 3.5-5.1 kecn=818) CHLORIDE (BEAKER) (test 105 meq/L 98-107 aiik=973) CO2 (BEAKER) (test 26 meq/L 22-29 inet=428) BLOOD UREA NITROGEN 18 mg/dL 7-21 (BEAKER) (test oyfa=210) CREATININE (BEAKER) (test 1.38 mg/dL 0.57-1.25 abqf=765) GLUCOSE RANDOM (BEAKER) 234 mg/dL 70-105 (test pffu=880) CALCIUM (BEAKER) (test 7.8 mg/dL 8.4-10.2 rlgf=129) AST (SGOT) (BEAKER) (test 29 U/L 5-34 fhir=640) ALT (SGPT) (BEAKER) (test 13 U/L 6-55 jdhh=136) EGFR (BEAKER) (test 39 mL/min/1.73 sq m ESTIMATED GFR IS NOT jbdm=4807) ACCURATE CREATININE CLEARANCE IN PREDICTING GLOMERULAR FILTRATION RATE. ESTIMATED GFR IS NOT APPLICABLE FOR DIALYSIS PATIENTS. [id number] 06:47:00 Test Item Value Reference Range Comments PHOSPHORUS (BEAKER) (test dusv=796) 2.0 mg/dL 2.3-4.7 [id number] 06:47:00 Test Item Value Reference Range Comments MAGNESIUM (BEAKER) (test srzz=518) 1.7 mg/dL 1.6-2.6 HEPATIC FUNCTION [id number] 06:47:00 Test Item Value Reference Range Comments TOTAL PROTEIN (BEAKER) (test gtnv=717) 4.9 gm/dL 6.0-8.3 ALBUMIN (BEAKER) (test htme=2524) 2.3 g/dL 3.5-5.0 BILIRUBIN TOTAL (BEAKER) (test qsax=117) 1.1 mg/dL 0.2-1.2 BILIRUBIN DIRECT (BEAKER) (test pmxm=431) 0.6 mg/dL 0.1-0.5 ALKALINE PHOSPHATASE (BEAKER) (test crfa=081) 119 U/L 40-150 AST (SGOT) (BEAKER) (test mwfw=687) 29 U/L 5-34 ALT (SGPT) (BEAKER) (test xikd=184) 13 U/L 6-55 CBC W/PLT COUNT & AUTO [id number] 06:32:00 Test Item Value Reference Range Comments WHITE BLOOD CELL COUNT (BEAKER) (test lnkl=424) 5.3 K/ L 3.5-10.5 RED BLOOD CELL COUNT (BEAKER) (test tphj=143) 3.05 M/ L 3.93-5.22 HEMOGLOBIN (BEAKER) (test pcmr=427) 8.3 GM/DL 11.2-15.7 HEMATOCRIT (BEAKER) (test dlrw=133) 26.7 % 34.1-44.9 MEAN CORPUSCULAR VOLUME (BEAKER) (test dfxt=266) 87.5 fL 79.4-94.8 MEAN CORPUSCULAR HEMOGLOBIN (BEAKER) (test 27.2 pg 25.6-32.2 dvoc=220) MEAN CORPUSCULAR HEMOGLOBIN CONC (BEAKER) (test 31.1 GM/DL 32.2-35.5 mbhc=956) RED CELL DISTRIBUTION WIDTH (BEAKER) (test 17.4 % 11.7-14.4 nceh=458) PLATELET COUNT (BEAKER) (test veal=133) 161 K/CU MM 150-450 MEAN PLATELET VOLUME (BEAKER) (test jytz=458) 8.8 fL 9.4-12.3 NUCLEATED RED BLOOD CELLS (BEAKER) (test 0 /100 WBC 0-0 xwdm=429) NEUTROPHILS RELATIVE PERCENT (BEAKER) (test 52 % uhcs=093) LYMPHOCYTES RELATIVE PERCENT (BEAKER) (test 27 % vzcm=020) MONOCYTES RELATIVE PERCENT (BEAKER) (test 9 % oktt=455) EOSINOPHILS RELATIVE PERCENT (BEAKER) (test 10 % jaoa=274) BASOPHILS RELATIVE PERCENT (BEAKER) (test 2 % ebou=686) NEUTROPHILS ABSOLUTE COUNT (BEAKER) (test 2.75 K/ L 1.56-6.13 fsne=436) LYMPHOCYTES ABSOLUTE COUNT (BEAKER) (test 1.42 K/ L 1.18-3.74 ejbv=121) MONOCYTES ABSOLUTE COUNT (BEAKER) (test 0.48 K/ L 0.24-0.36 hoei=666) EOSINOPHILS ABSOLUTE COUNT (BEAKER) (test 0.54 K/ L 0.04-0.36 teyh=638) BASOPHILS ABSOLUTE COUNT (BEAKER) (test 0.08 K/ L 0.01-0.08 wjld=941) IMMATURE GRANULOCYTES-RELATIVE PERCENT (BEAKER) 0 % 0-1 (test bwsb=2797) B-TYPE NATRIURETIC FACTOR (BNP)2019-05-20 06:27:00 Test Item Value Reference Range Comments B-TYPE NATRIURETIC PEPTIDE (BEAKER) (test 274 pg/mL 0-100 ogjt=432) VANCOMYCIN LEVEL, [id number] 06:16:00 Test Item Value Reference Range Comments VANCOMYCIN TROUGH (BEAKER) (test ymmb=093) 5.8 ug/mL 10.0-20.0 [id number] 06:11:00 Test Item Value Reference Range Comments D-DIMER QUANTITATIVE (BEAKER) (test okav=307) 3.95 MG/L FEU <0.50 Intended Use: The [...] exclusion of thrombosis is within 95-100% range.CALCIUM, [id number] 06:04:00 Test Item Value Reference Range Comments CALCIUM IONIZED (BEAKER) (test flix=173) 1.06 mmol/L 1.12-1.27 PH, BLOOD (BEAKER) (test ypwt=4865) 7.43 PROTHROMBIN [id number] 06:02:00 Test Item Value Reference Range Comments PROTIME (BEAKER) (test ugse=644) 13.8 seconds 11.9-14.2 INR (BEAKER) (test lrti=607) 1.1 <=5.9 Effective 04/01/2019: PT Reference Range ChangeNew: 11.9-14.2 Previous: 11.7- 14.7RECOMMENDED COUMADIN/WARFARIN INR THERAPY RANGESSTANDARD DOSE: 2.0-3.0 Includes: PROPHYLAXIS for venous thrombosis, systemic embolization; TREATMENT for venous thrombosis and/or pulmonary embolus.HIGH RISK: Target INR is2.5-3.5 for patients wiht mechanical heart valves.TROPONIN [id number] 02:44:00 Test Item Value Reference Range Comments TROPONIN I (BEAKER) (test msnt=187) 0.01 ng/mL 0.00-0.03 Troponin I (TnI) levels [...] acute neurological disease, and persistent tachyarrhythmia.PROTEIN, RANDOM [id number] 01:50:00 Test Item Value Reference Range Comments PROTEIN, URINE (BEAKER) (test rsyy=6094) 20 mg/dL 0-14 CREATININE, RANDOM [id number] 01:49:00 Test Item Value Reference Range Comments CREATININE URINE (BEAKER) (test wpwy=855) 184.6 mg/dL Reference Range: No NormalsRAD, CHEST, 1 VIEW, NON [id number] 01:49: 00Reason for exam:->anasarcaShould this be performed [...] Verified Date/Time: 05/20/2019 01:49 :05 Reading Location: [address] Reading Room POCT-GLUCOSE [id number] 00:36:00 Test Item Value Reference Range Comments POC-GLUCOSE METER (BEAKER) 326 mg/dL 70-[address] [facility] [address] [place] [address] (test vhsp=1486) [facility] [address] URINALYSIS W/ [id number] 00:02:00 Test Item Value Reference Range Comments COLOR (BEAKER) (test uhhm=907) Yellow CLARITY (BEAKER) (test hyzm=372) Clear SPECIFIC GRAVITY UA (BEAKER) (test aptr=628) 1.020 1.001-1.035 PH UA (BEAKER) (test gztn=201) 5.5 5.0-8.0 PROTEIN UA (BEAKER) (test muel=610) 20 mg/dL Negative GLUCOSE UA (BEAKER) (test kutm=187) 300 mg/dL Negative KETONES UA (BEAKER) (test exfa=759) Negative Negative BILIRUBIN UA (BEAKER) (test chsd=818) Negative Negative BLOOD UA (BEAKER) (test eghd=640) Negative Negative NITRITE UA (BEAKER) (test tmio=788) Negative Negative LEUKOCYTE ESTERASE UA (BEAKER) (test xdhv=502) Small Negative UROBILINOGEN UA (BEAKER) (test tmab=353) 2.0 mg/dL 0.2-1.0 RBC UA (BEAKER) (test gcdv=721) 2 /HPF WBC UA (BEAKER) (test wzgn=106) 2 /HPF MUCUS (BEAKER) (test aicu=0414) Rare SQUAMOUS EPITHELIAL (BEAKER) (test vzil=417) 6 /HPF HYALINE CASTS (BEAKER) (test acqa=221) 5 /LPF SOURCE(BEAKER) (test klll=1119) Urine, Voided T4, [id number] 22:29:00 Test Item Value Reference Range Comments FREE T4 (BEAKER) (test kzzn=301) 0.44 ng/dL 0.70-1.48 HEMOGLOBIN [id number] 22:15:00 Test Item Value Reference Range Comments HEMOGLOBIN A1C (BEAKER) (test mizc=407) 8.6 % 4.3-6.1 TSH/FREE T4 IF [id number] 21:43:00 Test Item Value Reference Range Comments THYROID STIMULATING HORMONE (BEAKER) (test 72.01 uIU/mL 0.35-4.94 vqzc=959) B-TYPE NATRIURETIC FACTOR (BNP)2019-05-19 21:29:00 Test Item Value Reference Range Comments B-TYPE NATRIURETIC PEPTIDE (BEAKER) (test 222 pg/mL 0-100 pxqh=382) PROTHROMBIN [id number] 21:26:00 Test Item Value Reference Range Comments PROTIME (BEAKER) (test btdx=690) 13.6 seconds 11.9-14.2 INR (BEAKER) (test aoop=516) 1.1 <=5.9 Effective 04/01/2019: PT Reference Range ChangeNew: 11.9-14.2 Previous: 11.7- 14.7RECOMMENDED COUMADIN/WARFARIN INR THERAPY RANGESSTANDARD DOSE: 2.0-3.0 Includes: PROPHYLAXIS for venous thrombosis, systemic embolization; TREATMENT for venous thrombosis and/or pulmonary embolus.HIGH RISK: Target INR is2.5-3.5 for patients wiht mechanical heart valves.TROPONIN [id number] 21:26:00 Test Item Value Reference Range Comments TROPONIN I (BEAKER) (test wlqm=383) < ng/mL 0.00-0.03 Troponin I (TnI) levels [...] failure, acidosis, acute neurological disease, and persistent tachyarrhythmia.[id number] 21:18:00 Test Item Value Reference Range Comments MAGNESIUM (BEAKER) (test 1.8 mg/dL 1.6-2.6 Specimen markedly hemolyzed djdm=999) [id number] 21:18:00 Test Item Value Reference Range Comments PHOSPHORUS (BEAKER) (test 2.1 mg/dL 2.3-4.7 Specimen markedly hemolyzed hmut=660) BASIC METABOLIC [id number] 21:18:00 Test Item Value Reference Range Comments SODIUM (BEAKER) (test 136 meq/L 136-145 rrkp=747) POTASSIUM (BEAKER) (test 4.8 meq/L 3.5-5.1 Specimen markedly bzfw=836) hemolyzed CHLORIDE (BEAKER) (test 103 meq/L 98-107 mkbz=632) CO2 (BEAKER) (test 29 meq/L 22-29 kfpz=744) BLOOD UREA NITROGEN 17 mg/dL 7-21 (BEAKER) (test mmnd=633) CREATININE (BEAKER) (test 1.33 mg/dL 0.57-1.25 Specimen markedly tjqr=669) hemolyzed GLUCOSE RANDOM (BEAKER) 248 mg/dL 70-105 (test wumb=296) CALCIUM (BEAKER) (test 8.1 mg/dL 8.4-10.2 inlr=722) EGFR (BEAKER) (test 41 mL/min/1.73 sq m ESTIMATED GFR IS NOT njtp=8375) ACCURATE CREATININE CLEARANCE IN PREDICTING GLOMERULAR FILTRATION RATE. ESTIMATED GFR IS NOT APPLICABLE FOR DIALYSIS PATIENTS. HEPATIC FUNCTION [id number] 21:18:00 Test Item Value Reference Range Comments TOTAL PROTEIN (BEAKER) (test 6.4 gm/dL 6.0-8.3 Specimen markedly hemolyzed xikf=031) ALBUMIN (BEAKER) (test 2.5 g/dL 3.5-5.0 Specimen markedly hemolyzed lpqs=3965) BILIRUBIN TOTAL (BEAKER) (test 1.3 mg/dL 0.2-1.2 Specimen markedly hemolyzed lgjg=433) BILIRUBIN DIRECT (BEAKER) (test 0.3 mg/dL 0.1-0.5 Specimen markedly hemolyzed khzg=905) ALKALINE PHOSPHATASE (BEAKER) 143 U/L 40-150 (test cwpx=925) AST (SGOT) (BEAKER) (test 61 U/L 5-34 Specimen markedly hemolyzed arwe=115) ALT (SGPT) (BEAKER) (test 15 U/L 6-55 Specimen markedly hemolyzed khop=406) CBC W/PLT COUNT & AUTO [id number] 20:58:00 Test Item Value Reference Range Comments WHITE BLOOD CELL COUNT (BEAKER) (test iayv=481) 6.0 K/ L 3.5-10.5 RED BLOOD CELL COUNT (BEAKER) (test jqxy=919) 3.57 M/ L 3.93-5.22 HEMOGLOBIN (BEAKER) (test ybsi=109) 9.8 GM/DL 11.2-15.7 HEMATOCRIT (BEAKER) (test kcnw=263) 30.6 % 34.1-44.9 MEAN CORPUSCULAR VOLUME (BEAKER) (test uinr=404) 85.7 fL 79.4-94.8 MEAN CORPUSCULAR HEMOGLOBIN (BEAKER) (test 27.5 pg 25.6-32.2 hfds=517) MEAN CORPUSCULAR HEMOGLOBIN CONC (BEAKER) (test 32.0 GM/DL 32.2-35.5 qtdi=861) RED CELL DISTRIBUTION WIDTH (BEAKER) (test 17.4 % 11.7-14.4 jtmt=159) PLATELET COUNT (BEAKER) (test cnkx=491) 199 K/CU MM 150-450 MEAN PLATELET VOLUME (BEAKER) (test rryr=481) 9.1 fL 9.4-12.3 NUCLEATED RED BLOOD CELLS (BEAKER) (test 0 /100 WBC 0-0 qsap=700) NEUTROPHILS RELATIVE PERCENT (BEAKER) (test 53 % cgsp=832) LYMPHOCYTES RELATIVE PERCENT (BEAKER) (test 27 % zpwy=015) MONOCYTES RELATIVE PERCENT (BEAKER) (test 8 % opim=945) EOSINOPHILS RELATIVE PERCENT (BEAKER) (test 10 % kjhe=732) BASOPHILS RELATIVE PERCENT (BEAKER) (test 1 % gxxz=558) NEUTROPHILS ABSOLUTE COUNT (BEAKER) (test 3.21 K/ L 1.56-6.13 dnfk=263) LYMPHOCYTES ABSOLUTE COUNT (BEAKER) (test 1.62 K/ L 1.18-3.74 vuki=281) MONOCYTES ABSOLUTE COUNT (BEAKER) (test 0.50 K/ L 0.24-0.36 ysis=950) EOSINOPHILS ABSOLUTE COUNT (BEAKER) (test 0.62 K/ L 0.04-0.36 glkb=095) BASOPHILS ABSOLUTE COUNT (BEAKER) (test 0.08 K/ L 0.01-0.08 quxj=589) IMMATURE GRANULOCYTES-RELATIVE PERCENT (BEAKER) 0 % 0-1 (test tycc=7234) BODY FLUID CULTURE + GRAM [id number] 13:44:00 Test Item Value Reference Range Comments CULTURE (BEAKER) (test hfbx=3377) No growth GRAM STAIN RESULT (BEAKER) (test <1+ White blood cells seen rovv=6963) GRAM STAIN RESULT (BEAKER) (test No organisms seen tqxn=17893) BODY FLUID CULTURE + GRAM [id number] 14:06:00 Test Item Value Reference Range Comments CULTURE (BEAKER) (test mtqh=1037) No growth GRAM STAIN RESULT (BEAKER) (test No White blood cells seen fvsx=4835) GRAM STAIN RESULT (BEAKER) (test No organisms seen libp=02352) BASIC METABOLIC [id number] 08:41:00 Test Item Value Reference Range Comments SODIUM (BEAKER) (test 132 meq/L 136-145 lsxl=780) POTASSIUM (BEAKER) (test 4.4 meq/L 3.5-5.1 gfaj=293) CHLORIDE (BEAKER) (test 100 meq/L 98-107 inyb=639) CO2 (BEAKER) (test 25 meq/L 22-29 xrvj=431) BLOOD UREA NITROGEN 53 mg/dL 7-21 (BEAKER) (test cowl=962) CREATININE (BEAKER) (test 1.80 mg/dL 0.57-1.25 bcip=122) GLUCOSE RANDOM (BEAKER) 211 mg/dL 70-105 (test xvzz=319) CALCIUM (BEAKER) (test 9.0 mg/dL 8.4-10.2 hwos=743) EGFR (BEAKER) (test 29 mL/min/1.73 sq m ESTIMATED GFR IS NOT ovnb=4457) ACCURATE CREATININE CLEARANCE IN PREDICTING GLOMERULAR FILTRATION RATE. ESTIMATED GFR IS NOT APPLICABLE FOR DIALYSIS PATIENTS. POCT-GLUCOSE [id number] 08:16:00 Test Item Value Reference Range Comments POC-GLUCOSE METER (BEAKER) 213 mg/dL 70-[address] [facility] [address] [place] [address] (test yqzo=0667) [facility] [address] HEPATIC FUNCTION [id number] 06:43:00 Test Item Value Reference Range Comments TOTAL PROTEIN (BEAKER) (test gvlp=153) 5.7 gm/dL 6.0-8.3 ALBUMIN (BEAKER) (test tbut=2384) 4.2 g/dL 3.5-5.0 BILIRUBIN TOTAL (BEAKER) (test cows=243) 1.6 mg/dL 0.2-1.2 BILIRUBIN DIRECT (BEAKER) (test tqzd=911) 0.8 mg/dL 0.1-0.5 ALKALINE PHOSPHATASE (BEAKER) (test lngb=921) 95 U/L 40-150 AST (SGOT) (BEAKER) (test eine=952) 71 U/L 5-34 ALT (SGPT) (BEAKER) (test zbjr=663) 68 U/L 6-55 POCT-GLUCOSE [id number] 22:00:00 Test Item Value Reference Range Comments POC-GLUCOSE METER (BEAKER) 341 mg/dL 70-110 Notified ALEXI ENNIS/TESTED AT [facility] (test kbxq=0496) [address] [place] [address] BODY FLUID CELL COUNT WITH [id number] 20:00:00 Test Item Value Reference Range Comments APPEARANCE FLUID (BEAKER) (test vovd=184) Hazy Clear COLOR FLUID (BEAKER) (test anxy=323) Straw Colorless, Straw RBC FLUID (BEAKER) (test voio=998) 4000 /cu mm <=1 ADJUSTED WBC FLUID (BEAKER) (test rmnu=8562) 140 /cu mm <=5 LINING CELLS (BEAKER) (test tipa=2150) 1 /cu mm <=1 NEUTROPHILS FLUID (BEAKER) (test goyo=4559) 1 % LYMPHS FLUID (BEAKER) (test pxuw=912) 30 % MONO/MACROPHAGE FLUID (BEAKER) (test fllt=541) 69 % EOSINOPHILS FLUID (BEAKER) (test eczv=574) 0 % BASO FLUID (BEAKER) (test dzdl=385) 0 % CONTAINER BODY FLUID (BEAKER) (test qzfe=1775) EDTA Tube U/S, [id number] 16:42:00Reason for exam:->ascites limited 6 litersFINAL REPORT PROCEDURE: Ultrasound-guided paracentesis. INDICATION: 59-year-old woman with ascites. DESCRIPTION: After obtaining informed written consent, ultrasound scan of the abdomen identified ascites in the right lower quadrant. The overlying skin was prepped and draped in the usual, sterile fashion and local 2% lidocaine anesthesia was administered. A 5 [place] catheter was advanced into the peritoneal cavity and 6000 cc of serous fluid was removed. The catheter was removed without immediate complication. Samples were sent for analysis. IMPRESSION:Uncomplicated ultrasound-guided paracentesis with 6000 cc fluid removed. Signed: Antwon Bose MDReport Verified Date/Time: 02/24/2019 16:42:07 Reading Location: [address] Ultrasound Reading Room POCT-GLUCOSE [id number] 13:07:00 Test Item Value Reference Range Comments POC-GLUCOSE METER (BEAKER) 290 mg/dL 70-110 TESTED AT [address] (test szdd=9599) [facility] [address] PROTHROMBIN [id number] 12:01:00 Test Item Value Reference Range Comments PROTIME (BEAKER) (test yxnj=748) 14.3 seconds 11.7-14.7 INR (BEAKER) (test jmwd=484) 1.1 <=5.9 RECOMMENDED COUMADIN/WARFARIN INR THERAPY RANGESSTANDARD DOSE: 2.0 - 3.0 Includes: PROPHYLAXIS forvenous thrombosis, systemic embolization; TREATMENT for venous thrombosis and/or pulmonary embolus.HIGH RISK: Target INR is 2.5-3.5 for patients with mechanical heart valves.[id number] 12:01:00 Test Item Value Reference Range Comments PARTIAL THROMBOPLASTIN TIME (BEAKER) (test 32.5 seconds 22.5-36.0 lswv=409) POCT-GLUCOSE [id number] 08:39:00 Test Item Value Reference Range Comments POC-GLUCOSE METER (BEAKER) 279 mg/dL 70-[address] [facility] [address] [facility] (test mqhh=3504) [place] [address] CALCIUM, [id number] 07:04:00 Test Item Value Reference Range Comments CALCIUM IONIZED (BEAKER) (test jvit=519) 1.08 mmol/L 1.12-1.27 PH, BLOOD (BEAKER) (test qdvo=5731) 7.38 COMPREHENSIVE METABOLIC [id number] 05:59:00 Test Item Value Reference Range Comments TOTAL PROTEIN (BEAKER) 5.5 gm/dL 6.0-8.3 (test evcp=257) ALBUMIN (BEAKER) (test 3.8 g/dL 3.5-5.0 vfyj=6155) ALKALINE PHOSPHATASE 125 U/L 40-150 (BEAKER) (test jjqp=341) BILIRUBIN TOTAL (BEAKER) 0.9 mg/dL 0.2-1.2 (test mjmf=030) SODIUM (BEAKER) (test 130 meq/L 136-145 siuy=481) POTASSIUM (BEAKER) (test 4.0 meq/L 3.5-5.1 yyvb=856) CHLORIDE (BEAKER) (test 99 meq/L 98-107 dcpu=661) CO2 (BEAKER) (test 23 meq/L 22-29 soyo=222) BLOOD UREA NITROGEN 51 mg/dL 7-21 (BEAKER) (test rtxc=773) CREATININE (BEAKER) (test 2.07 mg/dL 0.57-1.25 yoef=673) GLUCOSE RANDOM (BEAKER) 320 mg/dL 70-105 (test mlqh=549) CALCIUM (BEAKER) (test 8.7 mg/dL 8.4-10.2 beuh=033) AST (SGOT) (BEAKER) (test 111 U/L 5-34 crmn=892) ALT (SGPT) (BEAKER) (test 98 U/L 6-55 tztu=954) EGFR (BEAKER) (test 24 mL/min/1.73 sq m ESTIMATED GFR IS NOT mdqa=9219) ACCURATE CREATININE CLEARANCE IN PREDICTING GLOMERULAR FILTRATION RATE. ESTIMATED GFR IS NOT APPLICABLE FOR DIALYSIS PATIENTS. [id number] 05:58:00 Test Item Value Reference Range Comments PHOSPHORUS (BEAKER) (test vbzs=334) 2.1 mg/dL 2.3-4.7 [id number] 05:58:00 Test Item Value Reference Range Comments MAGNESIUM (BEAKER) (test zpht=508) 2.3 mg/dL 1.6-2.6 HEPATIC FUNCTION [id number] 05:58:00 Test Item Value Reference Range Comments TOTAL PROTEIN (BEAKER) (test hlwe=566) 5.5 gm/dL 6.0-8.3 ALBUMIN (BEAKER) (test beih=9046) 3.8 g/dL 3.5-5.0 BILIRUBIN TOTAL (BEAKER) (test lwyp=875) 0.9 mg/dL 0.2-1.2 BILIRUBIN DIRECT (BEAKER) (test pjsy=222) 0.4 mg/dL 0.1-0.5 ALKALINE PHOSPHATASE (BEAKER) (test ntpp=208) 125 U/L 40-150 AST (SGOT) (BEAKER) (test ebyf=595) 111 U/L 5-34 ALT (SGPT) (BEAKER) (test gvoa=327) 98 U/L 6-55 CBC W/PLT COUNT & AUTO [id number] 05:29:00 Test Item Value Reference Range Comments WHITE BLOOD CELL COUNT (BEAKER) (test bfhp=959) 5.9 K/ L 3.5-10.5 RED BLOOD CELL COUNT (BEAKER) (test lukg=601) 3.00 M/ L 3.93-5.22 HEMOGLOBIN (BEAKER) (test irqm=300) 8.5 GM/DL 11.2-15.7 HEMATOCRIT (BEAKER) (test irtf=522) 25.3 % 34.1-44.9 MEAN CORPUSCULAR VOLUME (BEAKER) (test kbfv=032) 84.3 fL 79.4-94.8 MEAN CORPUSCULAR HEMOGLOBIN (BEAKER) (test 28.3 pg 25.6-32.2 lxut=216) MEAN CORPUSCULAR HEMOGLOBIN CONC (BEAKER) (test 33.6 GM/DL 32.2-35.5 jcuy=157) RED CELL DISTRIBUTION WIDTH (BEAKER) (test 14.8 % 11.7-14.4 xcof=022) PLATELET COUNT (BEAKER) (test brvc=986) 146 K/CU MM 150-450 MEAN PLATELET VOLUME (BEAKER) (test wycj=948) 10.1 fL 9.4-12.3 NUCLEATED RED BLOOD CELLS (BEAKER) (test 0 /100 WBC 0-0 lshv=338) NEUTROPHILS RELATIVE PERCENT (BEAKER) (test 67 % vffk=444) LYMPHOCYTES RELATIVE PERCENT (BEAKER) (test 16 % yoqn=271) MONOCYTES RELATIVE PERCENT (BEAKER) (test 10 % zuvp=332) EOSINOPHILS RELATIVE PERCENT (BEAKER) (test 6 % zwmy=577) BASOPHILS RELATIVE PERCENT (BEAKER) (test 1 % liew=352) NEUTROPHILS ABSOLUTE COUNT (BEAKER) (test 3.94 K/ L 1.56-6.13 ulmt=833) LYMPHOCYTES ABSOLUTE COUNT (BEAKER) (test 0.96 K/ L 1.18-3.74 dree=856) MONOCYTES ABSOLUTE COUNT (BEAKER) (test 0.57 K/ L 0.24-0.36 bsov=938) EOSINOPHILS ABSOLUTE COUNT (BEAKER) (test 0.37 K/ L 0.04-0.36 hguf=731) BASOPHILS ABSOLUTE COUNT (BEAKER) (test 0.03 K/ L 0.01-0.08 sjbm=791) IMMATURE GRANULOCYTES-RELATIVE PERCENT (BEAKER) 0 % 0-1 (test makl=6111) POCT-GLUCOSE [id number] 21:01:00 Test Item Value Reference Range Comments POC-GLUCOSE METER (BEAKER) 371 mg/dL 70-110 Notified ALEXI ENNIS/TESTED AT [facility] (test fmwo=6829) [address] [place] [address] POCT-GLUCOSE [id number] 17:30:00 Test Item Value Reference Range Comments POC-GLUCOSE METER (BEAKER) 389 mg/dL 70-110 TESTED AT [address] (test ngpz=4784) [facility] [address] POCT-GLUCOSE [id number] 08:50:00 Test Item Value Reference Range Comments POC-GLUCOSE METER (BEAKER) 303 mg/dL 70-110 TESTED AT [address] (test axmy=7787) [facility] [address] POCT-GLUCOSE [id number] 08:27:00 Test Item Value Reference Range Comments POC-GLUCOSE METER (BEAKER) 342 mg/dL 70-110 Will Repeat Test/TESTED AT (test ziba=7395) [facility] [address] [facility] [address] CALCIUM, [id number] 07:20:00 Test Item Value Reference Range Comments CALCIUM IONIZED (BEAKER) (test rgsk=795) 0.98 mmol/L 1.12-1.27 PH, BLOOD (BEAKER) (test rivm=1609) 7.41 COMPREHENSIVE METABOLIC [id number] 07:05:00 Test Item Value Reference Range Comments TOTAL PROTEIN (BEAKER) 5.0 gm/dL 6.0-8.3 (test zxlq=042) ALBUMIN (BEAKER) (test 3.3 g/dL 3.5-5.0 sugr=9953) ALKALINE PHOSPHATASE 126 U/L 40-150 (BEAKER) (test uncn=085) BILIRUBIN TOTAL (BEAKER) 1.2 mg/dL 0.2-1.2 (test vudb=193) SODIUM (BEAKER) (test 128 meq/L 136-145 mlzt=726) POTASSIUM (BEAKER) (test 4.1 meq/L 3.5-5.1 fady=628) CHLORIDE (BEAKER) (test 98 meq/L 98-107 tohr=909) CO2 (BEAKER) (test 20 meq/L 22-29 fdxg=378) BLOOD UREA NITROGEN 43 mg/dL 7-21 (BEAKER) (test tpbf=855) CREATININE (BEAKER) (test 2.39 mg/dL 0.57-1.25 dwzb=390) GLUCOSE RANDOM (BEAKER) 305 mg/dL 70-105 (test bmty=599) CALCIUM (BEAKER) (test 8.1 mg/dL 8.4-10.2 pwro=100) AST (SGOT) (BEAKER) (test 173 U/L 5-34 ibas=347) ALT (SGPT) (BEAKER) (test 143 U/L 6-55 pmwd=108) EGFR (BEAKER) (test 21 mL/min/1.73 sq m ESTIMATED GFR IS NOT zhoj=1551) ACCURATE CREATININE CLEARANCE IN PREDICTING GLOMERULAR FILTRATION RATE. ESTIMATED GFR IS NOT APPLICABLE FOR DIALYSIS PATIENTS. [id number] 06:56:00 Test Item Value Reference Range Comments PHOSPHORUS (BEAKER) (test yqni=587) 2.5 mg/dL 2.3-4.7 [id number] 06:56:00 Test Item Value Reference Range Comments MAGNESIUM (BEAKER) (test hnik=000) 1.9 mg/dL 1.6-2.6 HEPATIC FUNCTION [id number] 06:56:00 Test Item Value Reference Range Comments TOTAL PROTEIN (BEAKER) (test qaql=871) 5.0 gm/dL 6.0-8.3 ALBUMIN (BEAKER) (test lwjx=3373) 3.3 g/dL 3.5-5.0 BILIRUBIN TOTAL (BEAKER) (test zuno=424) 1.2 mg/dL 0.2-1.2 BILIRUBIN DIRECT (BEAKER) (test xkbf=433) 0.6 mg/dL 0.1-0.5 ALKALINE PHOSPHATASE (BEAKER) (test khmg=601) 126 U/L 40-150 AST (SGOT) (BEAKER) (test fuzj=712) 173 U/L 5-34 ALT (SGPT) (BEAKER) (test kihr=858) 143 U/L 6-55 CBC W/PLT COUNT & AUTO [id number] 06:17:00 Test Item Value Reference Range Comments WHITE BLOOD CELL COUNT (BEAKER) (test indf=908) 5.7 K/ L 3.5-10.5 RED BLOOD CELL COUNT (BEAKER) (test mxql=658) 3.40 M/ L 3.93-5.22 HEMOGLOBIN (BEAKER) (test wwtu=395) 9.2 GM/DL 11.2-15.7 HEMATOCRIT (BEAKER) (test yvry=399) 29.1 % 34.1-44.9 MEAN CORPUSCULAR VOLUME (BEAKER) (test jmpt=772) 85.6 fL 79.4-94.8 MEAN CORPUSCULAR HEMOGLOBIN (BEAKER) (test 27.1 pg 25.6-32.2 avtc=608) MEAN CORPUSCULAR HEMOGLOBIN CONC (BEAKER) (test 31.6 GM/DL 32.2-35.5 yhar=050) RED CELL DISTRIBUTION WIDTH (BEAKER) (test 14.7 % 11.7-14.4 kopg=106) PLATELET COUNT (BEAKER) (test fdls=023) 128 K/CU MM 150-450 MEAN PLATELET VOLUME (BEAKER) (test vkpj=412) 10.3 fL 9.4-12.3 NUCLEATED RED BLOOD CELLS (BEAKER) (test 0 /100 WBC 0-0 pcmq=377) NEUTROPHILS RELATIVE PERCENT (BEAKER) (test 69 % mvsb=487) LYMPHOCYTES RELATIVE PERCENT (BEAKER) (test 15 % vcct=194) MONOCYTES RELATIVE PERCENT (BEAKER) (test 9 % svsb=578) EOSINOPHILS RELATIVE PERCENT (BEAKER) (test 6 % durr=717) BASOPHILS RELATIVE PERCENT (BEAKER) (test 1 % dxyn=828) NEUTROPHILS ABSOLUTE COUNT (BEAKER) (test 3.91 K/ L 1.56-6.13 rziv=248) LYMPHOCYTES ABSOLUTE COUNT (BEAKER) (test 0.86 K/ L 1.18-3.74 vnql=627) MONOCYTES ABSOLUTE COUNT (BEAKER) (test 0.51 K/ L 0.24-0.36 kwjt=737) EOSINOPHILS ABSOLUTE COUNT (BEAKER) (test 0.35 K/ L 0.04-0.36 xjuq=950) BASOPHILS ABSOLUTE COUNT (BEAKER) (test 0.03 K/ L 0.01-0.08 zoff=839) IMMATURE GRANULOCYTES-RELATIVE PERCENT (BEAKER) 0 % 0-1 (test byot=1183) BODY FLUID CELL COUNT WITH [id number] 17:06:00 Test Item Value Reference Range Comments APPEARANCE FLUID (BEAKER) (test pdnp=068) Hazy Clear COLOR FLUID (BEAKER) (test wwym=021) Yellow Colorless, Straw RBC FLUID (BEAKER) (test aicc=642) 6000 /cu mm <=1 ADJUSTED WBC FLUID (BEAKER) (test hoyq=7060) 125 /cu mm <=5 LINING CELLS (BEAKER) (test erxw=2110) 2 /cu mm <=1 NEUTROPHILS FLUID (BEAKER) (test gnpb=8900) 6 % LYMPHS FLUID (BEAKER) (test xbrx=938) 21 % MONO/MACROPHAGE FLUID (BEAKER) (test rmol=580) 73 % EOSINOPHILS FLUID (BEAKER) (test zxlf=128) 0 % BASO FLUID (BEAKER) (test sfis=614) 0 % CONTAINER BODY FLUID (BEAKER) (test luad=9729) EDTA Tube POCT-GLUCOSE [id number] 16:40:00 Test Item Value Reference Range Comments POC-GLUCOSE METER (BEAKER) 396 mg/dL 70-[address] [facility] [address] (test uzsr=1228) [facility] [address] U/S, [id number] 16:12:00limit to 6 LReason for exam:->ascites, limit to 6 LFINAL REPORT Paracentesis dated 02/22/2019 Procedure: Ultrasound-guided paracentesis. Preprocedure diagnosis: Ascites Postprocedure diagnosis: Ascites Conscious sedation: None. Radiologist: Giovanni Haas M.D. Pipe Organ Mechanic: None Anesthesia: 1% Xylocaine mixed with sodium bicarbonate local anesthesia. Technique: After obtaining informed consent, ultrasound-guided paracentesis was performed under usual sterile technique. Using a 5 pakistani drainage catheter, puncture was made in the right lower quadrant abdomen. Approximately 6000 cc of serous fluid was removed. Patient tolerated the procedure well without complication. Complication: None Graft/ Implant: None Estimated Blood Loss: None Impression: Ultrasound-guided paracentesis. Signed: Giovanni Haas Verified Date/Time: 02/22/2019 16:12 :23 Reading Location: [facility] C013Y CT Body Reading Room RAD, CHEST, 1 VIEW, NON [id number] 12:22:00Reason for exam:->coughShould this be performed at [...] Date/ Time: 02/22/2019 12:22:24 Reading Location: [facility] C013W Consult Reading Room POCT-GLUCOSE [id number] 07:55:00 Test Item Value Reference Range Comments POC-GLUCOSE METER (BEAKER) 317 mg/dL 70-110 TESTED AT [address] (test fmje=7091) [facility] [address] POCT-GLUCOSE [id number] 07:24:00 Test Item Value Reference Range Comments POC-GLUCOSE METER (BEAKER) 386 mg/dL 70-110 Notified ALEXI ENNIS/TESTED AT [facility] (test mxpq=2098) [address] [place] [address] POCT-GLUCOSE [id number] 07:24:00 Test Item Value Reference Range Comments POC-GLUCOSE METER (BEAKER) 295 mg/dL 70-110 TESTED AT [address] (test tiui=7759) [facility] [address] POCT-GLUCOSE [id number] 07:24:00 Test Item Value Reference Range Comments POC-GLUCOSE METER (BEAKER) 256 mg/dL 70-110 TESTED AT [address] (test fybs=4932) [facility] [address] BASIC METABOLIC [id number] 06:50:00 Test Item Value Reference Range Comments SODIUM (BEAKER) (test 128 meq/L 136-145 nhfc=138) POTASSIUM (BEAKER) (test 4.0 meq/L 3.5-5.1 ahpq=257) CHLORIDE (BEAKER) (test 100 meq/L 98-107 oakc=001) CO2 (BEAKER) (test 21 meq/L 22-29 clcp=803) BLOOD UREA NITROGEN 40 mg/dL 7-21 (BEAKER) (test zhbi=990) CREATININE (BEAKER) (test 2.62 mg/dL 0.57-1.25 mvbh=486) GLUCOSE RANDOM (BEAKER) 351 mg/dL 70-105 (test iqcf=766) CALCIUM (BEAKER) (test 8.0 mg/dL 8.4-10.2 ijbf=045) EGFR (BEAKER) (test 19 mL/min/1.73 sq m ESTIMATED GFR IS NOT lcph=6026) ACCURATE CREATININE CLEARANCE IN PREDICTING GLOMERULAR FILTRATION RATE. ESTIMATED GFR IS NOT APPLICABLE FOR DIALYSIS PATIENTS. [id number] 06:46:00 Test Item Value Reference Range Comments MAGNESIUM (BEAKER) (test pgwx=265) 1.9 mg/dL 1.6-2.6 BLOOD [id number] 20:01:00 Test Item Value Reference Range Comments CULTURE (BEAKER) (test xjha=1223) No growth in 5 days BLOOD [id number] 20:01:00 Test Item Value Reference Range Comments CULTURE (BEAKER) (test etju=0036) No growth in 5 days POCT-GLUCOSE [id number] 08:39:00 Test Item Value Reference Range Comments POC-GLUCOSE METER (BEAKER) 300 mg/dL 70-[address] [facility] [address] (test uzwp=8849) [facility] [address] POCT-GLUCOSE [id number] 08:39:00 Test Item Value Reference Range Comments POC-GLUCOSE METER (BEAKER) 330 mg/dL 70-110 Notified ALEXI ENNIS/TESTED AT [facility] (test woar=0400) [address] [facility] [address] COMPREHENSIVE METABOLIC [id number] 08:25:00 Test Item Value Reference Range Comments TOTAL PROTEIN (BEAKER) 4.9 gm/dL 6.0-8.3 (test wlhb=541) ALBUMIN (BEAKER) (test 3.3 g/dL 3.5-5.0 gwci=7362) ALKALINE PHOSPHATASE 129 U/L 40-150 (BEAKER) (test aunh=501) BILIRUBIN TOTAL (BEAKER) 1.2 mg/dL 0.2-1.2 (test flwz=895) SODIUM (BEAKER) (test 130 meq/L 136-145 gfmj=820) POTASSIUM (BEAKER) (test 4.5 meq/L 3.5-5.1 idmo=644) CHLORIDE (BEAKER) (test 102 meq/L 98-107 cyds=139) CO2 (BEAKER) (test 20 meq/L 22-29 ttfp=567) BLOOD UREA NITROGEN 32 mg/dL 7-21 (BEAKER) (test yjjx=883) CREATININE (BEAKER) (test 2.28 mg/dL 0.57-1.25 ystb=437) GLUCOSE RANDOM (BEAKER) 341 mg/dL 70-105 (test eqek=347) CALCIUM (BEAKER) (test 8.1 mg/dL 8.4-10.2 mazm=598) AST (SGOT) (BEAKER) (test 851 U/L 5-34 qucs=139) ALT (SGPT) (BEAKER) (test 345 U/L 6-55 obyi=724) EGFR (BEAKER) (test 22 mL/min/1.73 sq m ESTIMATED GFR IS NOT mtpp=2659) ACCURATE CREATININE CLEARANCE IN PREDICTING GLOMERULAR FILTRATION RATE. ESTIMATED GFR IS NOT APPLICABLE FOR DIALYSIS PATIENTS. [id number] 08:19:00 Test Item Value Reference Range Comments PHOSPHORUS (BEAKER) (test twgo=589) 2.3 mg/dL 2.3-4.7 [id number] 08:19:00 Test Item Value Reference Range Comments MAGNESIUM (BEAKER) (test pnca=435) 1.9 mg/dL 1.6-2.6 CALCIUM, [id number] 07:20:00 Test Item Value Reference Range Comments CALCIUM IONIZED (BEAKER) (test niuj=479) 0.98 mmol/L 1.12-1.27 PH, BLOOD (BEAKER) (test klcd=4908) 7.42 CBC W/PLT COUNT & AUTO [id number] 06:36:00 Test Item Value Reference Range Comments WHITE BLOOD CELL COUNT (BEAKER) (test xkyj=519) 8.1 K/ L 3.5-10.5 RED BLOOD CELL COUNT (BEAKER) (test zcvk=608) 3.43 M/ L 3.93-5.22 HEMOGLOBIN (BEAKER) (test drkh=830) 9.2 GM/DL 11.2-15.7 HEMATOCRIT (BEAKER) (test ducj=812) 29.3 % 34.1-44.9 MEAN CORPUSCULAR VOLUME (BEAKER) (test yvcu=520) 85.4 fL 79.4-94.8 MEAN CORPUSCULAR HEMOGLOBIN (BEAKER) (test 26.8 pg 25.6-32.2 onbk=399) MEAN CORPUSCULAR HEMOGLOBIN CONC (BEAKER) (test 31.4 GM/DL 32.2-35.5 cmxa=533) RED CELL DISTRIBUTION WIDTH (BEAKER) (test 14.6 % 11.7-14.4 zmap=270) PLATELET COUNT (BEAKER) (test ajpq=761) 132 K/CU MM 150-450 MEAN PLATELET VOLUME (BEAKER) (test wrfe=686) 9.3 fL 9.4-12.3 NUCLEATED RED BLOOD CELLS (BEAKER) (test 0 /100 WBC 0-0 bgdb=023) NEUTROPHILS RELATIVE PERCENT (BEAKER) (test 77 % jhwv=321) LYMPHOCYTES RELATIVE PERCENT (BEAKER) (test 13 % smub=349) MONOCYTES RELATIVE PERCENT (BEAKER) (test 8 % snfo=470) EOSINOPHILS RELATIVE PERCENT (BEAKER) (test 2 % tghc=251) BASOPHILS RELATIVE PERCENT (BEAKER) (test 1 % yasb=124) NEUTROPHILS ABSOLUTE COUNT (BEAKER) (test 6.17 K/ L 1.56-6.13 hmoe=804) LYMPHOCYTES ABSOLUTE COUNT (BEAKER) (test 1.02 K/ L 1.18-3.74 uhjv=167) MONOCYTES ABSOLUTE COUNT (BEAKER) (test 0.61 K/ L 0.24-0.36 wdmn=861) EOSINOPHILS ABSOLUTE COUNT (BEAKER) (test 0.18 K/ L 0.04-0.36 grpl=799) BASOPHILS ABSOLUTE COUNT (BEAKER) (test 0.05 K/ L 0.01-0.08 hwkx=613) IMMATURE GRANULOCYTES-RELATIVE PERCENT (BEAKER) 1 % 0-1 (test midw=7061) BASIC METABOLIC [id number] 19:24:00 Test Item Value Reference Range Comments SODIUM (BEAKER) (test 132 meq/L 136-145 jhum=439) POTASSIUM (BEAKER) (test 4.8 meq/L 3.5-5.1 fmlq=753) CHLORIDE (BEAKER) (test 103 meq/L 98-107 zuvy=528) CO2 (BEAKER) (test 20 meq/L 22-29 brnb=333) BLOOD UREA NITROGEN 30 mg/dL 7-21 (BEAKER) (test arfo=055) CREATININE (BEAKER) (test 1.85 mg/dL 0.57-1.25 bpcu=753) GLUCOSE RANDOM (BEAKER) 297 mg/dL 70-105 (test vlzz=970) CALCIUM (BEAKER) (test 8.7 mg/dL 8.4-10.2 jenp=923) EGFR (BEAKER) (test 28 mL/min/1.73 sq m ESTIMATED GFR IS NOT vsyc=3930) ACCURATE CREATININE CLEARANCE IN PREDICTING GLOMERULAR FILTRATION RATE. ESTIMATED GFR IS NOT APPLICABLE FOR DIALYSIS PATIENTS. Please draw [address] Quiroz at [phone] with results.Call [id number] 19:22:00 Test Item Value Reference Range Comments SODIUM (BEAKER) (test aruh=499) 132 meq/L 136-145 POTASSIUM (BEAKER) (test zyyn=347) 4.8 meq/L 3.5-5.1 CHLORIDE (BEAKER) (test qfgw=986) 103 meq/L 98-107 CO2 (BEAKER) (test ldhb=421) 20 meq/L 22-29 Please draw 4 hours after [address]PS. Page Dr. Quiroz at [phone] with results.Call [id number] 18:11:00 Test Item Value Reference Range Comments POC-GLUCOSE METER (BEAKER) 314 mg/dL 70-110 TESTED AT [address] (test xmxq=0948) [place] [id number] POCT-GLUCOSE [id number] 17:29:00 Test Item Value Reference Range Comments POC-GLUCOSE METER (BEAKER) 255 mg/dL 70-110 TESTED AT [address] (test qvbq=3746) [facility] [address] POCT-GLUCOSE [id number] 13:02:00 Test Item Value Reference Range Comments POC-GLUCOSE METER (BEAKER) 289 mg/dL 70-110 TESTED AT [address] (test twwl=8769) [place] [id number] BODY FLUID CULTURE + GRAM [id number] 12:08:00 Test Item Value Reference Range Comments CULTURE (BEAKER) (test zqdy=0913) No growth GRAM STAIN RESULT (BEAKER) (test <1+ WBCs vdrh=9021) GRAM STAIN RESULT (BEAKER) (test No organisms seen myoa=90192) SEAMUS [id number] 09:29:00Reason for exam:->cirrhosis/ portal hypertension , refractory [...] and a bleeding placement of a 10 Tu[place] sheath from theright hepatic vein to the [...] 1 L of yellow fluid. The 5 Tu[place] needle/catheter was inserted with real-time ultrasound guidance into the peritoneal cavity in the right lateral abdomen following sterile preparation. Following this, the sheath catheter was removed. CONCLUSION: Successful TIPS and paracentesis. Signed: Yulia Kaba MDReport Verified Date/Time: 02/20/2019 09:29:18 Reading Location : [place] [address] Angio Body Reading Room CALCIUM, [id number] 06:43:00 Test Item Value Reference Range Comments CALCIUM IONIZED (BEAKER) (test bqrj=362) 1.02 mmol/L 1.12-1.27 PH, BLOOD (BEAKER) (test cykw=5494) 7.40 [id number] 06:12:00 Test Item Value Reference Range Comments PHOSPHORUS (BEAKER) (test veib=089) 2.5 mg/dL 2.3-4.7 [id number] 06:12:00 Test Item Value Reference Range Comments MAGNESIUM (BEAKER) (test ezua=637) 1.6 mg/dL 1.6-2.6 HEPATIC FUNCTION [id number] 06:12:00 Test Item Value Reference Range Comments TOTAL PROTEIN (BEAKER) (test jmhz=318) 5.3 gm/dL 6.0-8.3 ALBUMIN (BEAKER) (test vzqi=7426) 3.6 g/dL 3.5-5.0 BILIRUBIN TOTAL (BEAKER) (test hflb=121) 1.2 mg/dL 0.2-1.2 BILIRUBIN DIRECT (BEAKER) (test avsk=188) 0.6 mg/dL 0.1-0.5 ALKALINE PHOSPHATASE (BEAKER) (test boks=448) 80 U/L 40-150 AST (SGOT) (BEAKER) (test jygj=125) 99 U/L 5-34 ALT (SGPT) (BEAKER) (test oltr=560) 52 U/L 6-55 COMPREHENSIVE METABOLIC [id number] 06:12:00 Test Item Value Reference Range Comments TOTAL PROTEIN (BEAKER) 5.3 gm/dL 6.0-8.3 (test icta=064) ALBUMIN (BEAKER) (test 3.6 g/dL 3.5-5.0 qyhr=5336) ALKALINE PHOSPHATASE 80 U/L 40-150 (BEAKER) (test bxma=142) BILIRUBIN TOTAL (BEAKER) 1.2 mg/dL 0.2-1.2 (test gudi=204) SODIUM (BEAKER) (test 133 meq/L 136-145 mzds=614) POTASSIUM (BEAKER) (test 5.4 meq/L 3.5-5.1 afxl=916) CHLORIDE (BEAKER) (test 104 meq/L 98-107 iqkd=809) CO2 (BEAKER) (test 22 meq/L 22-29 kjzt=563) BLOOD UREA NITROGEN 27 mg/dL 7-21 (BEAKER) (test supv=196) CREATININE (BEAKER) (test 1.58 mg/dL 0.57-1.25 gwst=057) GLUCOSE RANDOM (BEAKER) 300 mg/dL 70-105 (test eixh=961) CALCIUM (BEAKER) (test 8.4 mg/dL 8.4-10.2 tyoq=241) AST (SGOT) (BEAKER) (test 99 U/L 5-34 uoiz=062) ALT (SGPT) (BEAKER) (test 52 U/L 6-55 rxpn=590) EGFR (BEAKER) (test 33 mL/min/1.73 sq m ESTIMATED GFR IS NOT ozhr=5196) ACCURATE CREATININE CLEARANCE IN PREDICTING GLOMERULAR FILTRATION RATE. ESTIMATED GFR IS NOT APPLICABLE FOR DIALYSIS PATIENTS. PROTHROMBIN [id number] 05:57:00 Test Item Value Reference Range Comments PROTIME (BEAKER) (test nxga=800) 16.4 seconds 11.7-14.7 INR (BEAKER) (test clls=918) 1.3 <=5.9 RECOMMENDED COUMADIN/WARFARIN INR THERAPY RANGESSTANDARD DOSE: 2.0 - 3.0 Includes: PROPHYLAXIS forvenous thrombosis, systemic embolization; TREATMENT for venous thrombosis and/or pulmonary embolus.HIGH RISK: Target INR is 2.5-3.5 for patients with mechanical heart valves.CBC W/PLT COUNT & AUTO [id number] 05:54:00 Test Item Value Reference Range Comments WHITE BLOOD CELL COUNT (BEAKER) (test bcdf=450) 7.9 K/ L 3.5-10.5 RED BLOOD CELL COUNT (BEAKER) (test imop=239) 3.24 M/ L 3.93-5.22 HEMOGLOBIN (BEAKER) (test enqn=391) 8.9 GM/DL 11.2-15.7 HEMATOCRIT (BEAKER) (test ppyc=601) 28.0 % 34.1-44.9 MEAN CORPUSCULAR VOLUME (BEAKER) (test chks=277) 86.4 fL 79.4-94.8 MEAN CORPUSCULAR HEMOGLOBIN (BEAKER) (test 27.5 pg 25.6-32.2 rddn=852) MEAN CORPUSCULAR HEMOGLOBIN CONC (BEAKER) (test 31.8 GM/DL 32.2-35.5 fend=132) RED CELL DISTRIBUTION WIDTH (BEAKER) (test 14.4 % 11.7-14.4 siup=236) PLATELET COUNT (BEAKER) (test tqdg=379) 132 K/CU MM 150-450 MEAN PLATELET VOLUME (BEAKER) (test flbk=671) 9.3 fL 9.4-12.3 NUCLEATED RED BLOOD CELLS (BEAKER) (test 0 /100 WBC 0-0 vtse=594) NEUTROPHILS RELATIVE PERCENT (BEAKER) (test 83 % ujbs=280) LYMPHOCYTES RELATIVE PERCENT (BEAKER) (test 10 % mnyp=073) MONOCYTES RELATIVE PERCENT (BEAKER) (test 7 % cluo=203) EOSINOPHILS RELATIVE PERCENT (BEAKER) (test 0 % jblj=701) BASOPHILS RELATIVE PERCENT (BEAKER) (test 0 % knfr=835) NEUTROPHILS ABSOLUTE COUNT (BEAKER) (test 6.55 K/ L 1.56-6.13 uvdx=228) LYMPHOCYTES ABSOLUTE COUNT (BEAKER) (test 0.77 K/ L 1.18-3.74 puby=665) MONOCYTES ABSOLUTE COUNT (BEAKER) (test 0.55 K/ L 0.24-0.36 pqvk=174) EOSINOPHILS ABSOLUTE COUNT (BEAKER) (test 0.00 K/ L 0.04-0.36 bewe=382) BASOPHILS ABSOLUTE COUNT (BEAKER) (test 0.02 K/ L 0.01-0.08 jhmx=884) IMMATURE GRANULOCYTES-RELATIVE PERCENT (BEAKER) 0 % 0-1 (test vzhv=3018) POCT-GLUCOSE [id number] 19:01:00 Test Item Value Reference Range Comments POC-GLUCOSE METER (BEAKER) 301 mg/dL 70-[address] [facility] [address] [place] [address] (test btys=8832) [facility] [address] [address], ABDOMEN, WITHOUT [id number] 12:33:00FINAL REPORT ABDOMINAL CT DATED 02/19/2019 CLINICAL [...] [place] Verified Date/Time: 02/19/2019 12:33:54 Reading Location: [address] Body Reading Room Electronicallysigned by: GIOVANNI HAAS M.D. on 02/19/2019 12:33 PMBODY FLUID CULTURE + GRAM [id number] 12:08:00 Test Item Value Reference Range Comments CULTURE (BEAKER) (test dugi=5959) No growth GRAM STAIN RESULT (BEAKER) (test <1+ WBCs gqsx=9308) GRAM STAIN RESULT (BEAKER) (test No organisms seen fqwh=99650) POCT-GLUCOSE [id number] 09:38:00 Test Item Value Reference Range Comments POC-GLUCOSE METER (BEAKER) 274 mg/dL 70-110 TESTED AT [address] (test qdfp=8039) [facility] [address] CALCIUM, [id number] 06:56:00 Test Item Value Reference Range Comments CALCIUM IONIZED (BEAKER) (test tbgs=221) 1.05 mmol/L 1.12-1.27 PH, BLOOD (BEAKER) (test jfmu=1864) 7.40 [id number] 06:22:00 Test Item Value Reference Range Comments PHOSPHORUS (BEAKER) (test asof=300) 2.3 mg/dL 2.3-4.7 [id number] 06:22:00 Test Item Value Reference Range Comments MAGNESIUM (BEAKER) (test vqiq=287) 1.7 mg/dL 1.6-2.6 HEPATIC FUNCTION [id number] 06:22:00 Test Item Value Reference Range Comments TOTAL PROTEIN (BEAKER) (test rhcq=465) 5.6 gm/dL 6.0-8.3 ALBUMIN (BEAKER) (test karj=9759) 3.4 g/dL 3.5-5.0 BILIRUBIN TOTAL (BEAKER) (test lunj=387) 0.9 mg/dL 0.2-1.2 BILIRUBIN DIRECT (BEAKER) (test izgx=041) 0.4 mg/dL 0.1-0.5 ALKALINE PHOSPHATASE (BEAKER) (test pkaq=664) 121 U/L 40-150 AST (SGOT) (BEAKER) (test brne=607) 28 U/L 5-34 ALT (SGPT) (BEAKER) (test wxrp=956) 12 U/L 6-55 COMPREHENSIVE METABOLIC [id number] 06:22:00 Test Item Value Reference Range Comments TOTAL PROTEIN (BEAKER) 5.6 gm/dL 6.0-8.3 (test dolq=748) ALBUMIN (BEAKER) (test 3.4 g/dL 3.5-5.0 tjlq=3430) ALKALINE PHOSPHATASE 121 U/L 40-150 (BEAKER) (test dmec=830) BILIRUBIN TOTAL (BEAKER) 0.9 mg/dL 0.2-1.2 (test gdmp=249) SODIUM (BEAKER) (test 135 meq/L 136-145 dxjb=944) POTASSIUM (BEAKER) (test 4.5 meq/L 3.5-5.1 nnag=747) CHLORIDE (BEAKER) (test 105 meq/L 98-107 cnrq=230) CO2 (BEAKER) (test 22 meq/L 22-29 nzzk=285) BLOOD UREA NITROGEN 29 mg/dL 7-21 (BEAKER) (test nrsn=846) CREATININE (BEAKER) (test 1.38 mg/dL 0.57-1.25 acdz=444) GLUCOSE RANDOM (BEAKER) 313 mg/dL 70-105 (test dcar=368) CALCIUM (BEAKER) (test 8.7 mg/dL 8.4-10.2 qpir=041) AST (SGOT) (BEAKER) (test 28 U/L 5-34 kagd=332) ALT (SGPT) (BEAKER) (test 12 U/L 6-55 vepm=696) EGFR (BEAKER) (test 39 mL/min/1.73 sq m ESTIMATED GFR IS NOT puta=6455) ACCURATE CREATININE CLEARANCE IN PREDICTING GLOMERULAR FILTRATION RATE. ESTIMATED GFR IS NOT APPLICABLE FOR DIALYSIS PATIENTS. PROTHROMBIN [id number] 06:15:00 Test Item Value Reference Range Comments PROTIME (BEAKER) (test lbrk=336) 14.0 seconds 11.7-14.7 INR (BEAKER) (test pnoo=329) 1.1 <=5.9 RECOMMENDED COUMADIN/WARFARIN INR THERAPY RANGESSTANDARD DOSE: 2.0 - 3.0 Includes: PROPHYLAXIS forvenous thrombosis, systemic embolization; TREATMENT for venous thrombosis and/or pulmonary embolus.HIGH RISK: Target INR is 2.5-3.5 for patients with mechanical heart valves.CBC W/PLT COUNT & AUTO [id number] 05:57:00 Test Item Value Reference Range Comments WHITE BLOOD CELL COUNT (BEAKER) (test dadi=778) 6.9 K/ L 3.5-10.5 RED BLOOD CELL COUNT (BEAKER) (test btfk=355) 3.83 M/ L 3.93-5.22 HEMOGLOBIN (BEAKER) (test wlcd=197) 10.5 GM/DL 11.2-15.7 HEMATOCRIT (BEAKER) (test kgha=731) 33.1 % 34.1-44.9 MEAN CORPUSCULAR VOLUME (BEAKER) (test itdm=410) 86.4 fL 79.4-94.8 MEAN CORPUSCULAR HEMOGLOBIN (BEAKER) (test 27.4 pg 25.6-32.2 nzwx=318) MEAN CORPUSCULAR HEMOGLOBIN CONC (BEAKER) (test 31.7 GM/DL 32.2-35.5 bjgq=372) RED CELL DISTRIBUTION WIDTH (BEAKER) (test 14.4 % 11.7-14.4 akbe=982) PLATELET COUNT (BEAKER) (test xgek=130) 175 K/CU MM 150-450 MEAN PLATELET VOLUME (BEAKER) (test glda=686) 9.9 fL 9.4-12.3 NUCLEATED RED BLOOD CELLS (BEAKER) (test 0 /100 WBC 0-0 ysdr=860) NEUTROPHILS RELATIVE PERCENT (BEAKER) (test 73 % xykm=172) LYMPHOCYTES RELATIVE PERCENT (BEAKER) (test 16 % ywft=056) MONOCYTES RELATIVE PERCENT (BEAKER) (test 7 % gkpn=988) EOSINOPHILS RELATIVE PERCENT (BEAKER) (test 4 % wctg=580) BASOPHILS RELATIVE PERCENT (BEAKER) (test 1 % utrk=606) NEUTROPHILS ABSOLUTE COUNT (BEAKER) (test 4.99 K/ L 1.56-6.13 kmmq=511) LYMPHOCYTES ABSOLUTE COUNT (BEAKER) (test 1.09 K/ L 1.18-3.74 engl=178) MONOCYTES ABSOLUTE COUNT (BEAKER) (test 0.50 K/ L 0.24-0.36 sdyk=430) EOSINOPHILS ABSOLUTE COUNT (BEAKER) (test 0.25 K/ L 0.04-0.36 asik=040) BASOPHILS ABSOLUTE COUNT (BEAKER) (test 0.04 K/ L 0.01-0.08 chxu=202) IMMATURE GRANULOCYTES-RELATIVE PERCENT (BEAKER) 0 % 0-1 (test jecs=6227) POCT-GLUCOSE [id number] 23:05:00 Test Item Value Reference Range Comments POC-GLUCOSE METER (BEAKER) 412 mg/dL 70-110 Will Repeat Test/TESTED AT (test wpvq=9221) [address] [address] POCT-GLUCOSE [id number] 22:12:00 Test Item Value Reference Range Comments POC-GLUCOSE METER (BEAKER) 371 mg/dL 70-110 TESTED AT [address] (test fwrj=0187) [facility] [address] BODY FLUID CELL COUNT WITH [id number] 13:06:00 Test Item Value Reference Range Comments APPEARANCE FLUID (BEAKER) (test zvkk=078) Slightly Hazy Clear COLOR FLUID (BEAKER) (test jkxa=625) Yellow Colorless, Straw RBC FLUID (BEAKER) (test rgow=185) 252 /cu mm <=1 ADJUSTED WBC FLUID (BEAKER) (test tgjn=2194) 112 /cu mm <=5 LINING CELLS (BEAKER) (test ibex=0223) 10 /cu mm <=1 NEUTROPHILS FLUID (BEAKER) (test egov=5296) 8 % LYMPHS FLUID (BEAKER) (test pqim=766) 40 % MONO/MACROPHAGE FLUID (BEAKER) (test 43 % ufyw=096) EOSINOPHILS FLUID (BEAKER) (test eots=485) 0 % BASO FLUID (BEAKER) (test tgvz=975) 0 % CONTAINER BODY FLUID (BEAKER) (test EDTA Tube umfa=6419) U/S, [id number] 10:21:00Limit 8 LReason for exam:->ascites, limit 8 [...] skin and deep soft tissues. A 5 Tuvaluan one-step catheter was inserted and removed from the peritoneal space and approximately 8.0 liters of clear yellow fluid was aspirated from the abdomen. There were no immediate complications. Impression: Successful ultrasound guided paracentesis with aspiration of 8.0 liters of fluid. Signed: Akil Chung MDReport Verified Date/ Time: 02/18/2019 10:21:08 Reading Location: [address] Ultrasound Reading Room [id number] 07:08:00 Test Item Value Reference Range Comments MAGNESIUM (BEAKER) (test avgh=189) 1.7 mg/dL 1.6-2.6 HEPATIC FUNCTION [id number] 07:08:00 Test Item Value Reference Range Comments TOTAL PROTEIN (BEAKER) (test eogi=626) 5.4 gm/dL 6.0-8.3 ALBUMIN (BEAKER) (test fsqp=3204) 3.2 g/dL 3.5-5.0 BILIRUBIN TOTAL (BEAKER) (test gife=588) 0.8 mg/dL 0.2-1.2 BILIRUBIN DIRECT (BEAKER) (test cyhv=512) 0.4 mg/dL 0.1-0.5 ALKALINE PHOSPHATASE (BEAKER) (test xbjk=709) 104 U/L 40-150 AST (SGOT) (BEAKER) (test xdxk=682) 20 U/L 5-34 ALT (SGPT) (BEAKER) (test cdoh=762) 10 U/L 6-55 COMPREHENSIVE METABOLIC [id number] 07:08:00 Test Item Value Reference Range Comments TOTAL PROTEIN (BEAKER) 5.4 gm/dL 6.0-8.3 (test tydc=755) ALBUMIN (BEAKER) (test 3.2 g/dL 3.5-5.0 sxij=4052) ALKALINE PHOSPHATASE 104 U/L 40-150 (BEAKER) (test xxac=745) BILIRUBIN TOTAL (BEAKER) 0.8 mg/dL 0.2-1.2 (test cldx=441) SODIUM (BEAKER) (test 136 meq/L 136-145 aplr=741) POTASSIUM (BEAKER) (test 4.3 meq/L 3.5-5.1 saor=563) CHLORIDE (BEAKER) (test 108 meq/L 98-107 mbvb=094) CO2 (BEAKER) (test 22 meq/L 22-29 vwhb=951) BLOOD UREA NITROGEN 31 mg/dL 7-21 (BEAKER) (test ppdi=222) CREATININE (BEAKER) (test 1.26 mg/dL 0.57-1.25 tiqx=638) GLUCOSE RANDOM (BEAKER) 262 mg/dL 70-105 (test rspt=900) CALCIUM (BEAKER) (test 8.5 mg/dL 8.4-10.2 yvug=655) AST (SGOT) (BEAKER) (test 20 U/L 5-34 neaz=754) ALT (SGPT) (BEAKER) (test 10 U/L 6-55 hkps=445) EGFR (BEAKER) (test 43 mL/min/1.73 sq m ESTIMATED GFR IS NOT zfem=6704) ACCURATE CREATININE CLEARANCE IN PREDICTING GLOMERULAR FILTRATION RATE. ESTIMATED GFR IS NOT APPLICABLE FOR DIALYSIS PATIENTS. [id number] 07:07:00 Test Item Value Reference Range Comments PHOSPHORUS (BEAKER) (test hfed=963) 2.7 mg/dL 2.3-4.7 POCT-GLUCOSE [id number] 06:31:00 Test Item Value Reference Range Comments POC-GLUCOSE METER (BEAKER) 249 mg/dL 70-[address] [facility] [address] [facility] (test whcu=1342) [facility] [address] URINALYSIS W/ [id number] 06:17:00 Test Item Value Reference Range Comments COLOR (BEAKER) (test qvfv=485) Yellow CLARITY (BEAKER) (test qcqo=431) Clear SPECIFIC GRAVITY UA (BEAKER) (test gyit=873) 1.013 1.001-1.035 PH UA (BEAKER) (test oopn=842) 5.0 5.0-8.0 PROTEIN UA (BEAKER) (test bmvj=234) Negative Negative GLUCOSE UA (BEAKER) (test txpi=260) 100 mg/dL Negative KETONES UA (BEAKER) (test pxux=629) Negative Negative BILIRUBIN UA (BEAKER) (test wfyh=596) Negative Negative BLOOD UA (BEAKER) (test snqi=234) Negative Negative NITRITE UA (BEAKER) (test adks=839) Negative Negative LEUKOCYTE ESTERASE UA (BEAKER) (test liei=826) Large Negative UROBILINOGEN UA (BEAKER) (test muft=917) 0.2 mg/dL 0.2-1.0 RBC UA (BEAKER) (test efet=848) 2 /HPF WBC UA (BEAKER) (test ndzc=675) 24 /HPF SQUAMOUS EPITHELIAL (BEAKER) (test vcin=791) 14 /HPF HYALINE CASTS (BEAKER) (test bcrp=516) 3 /LPF SOURCE(BEAKER) (test owfa=5308) Urine, Voided [id number] 05:53:00 Test Item Value Reference Range Comments PARTIAL THROMBOPLASTIN TIME (BEAKER) (test 20.1 seconds 22.5-36.0 qxch=982) CALCIUM, [id number] 05:50:00 Test Item Value Reference Range Comments CALCIUM IONIZED (BEAKER) (test iomz=451) 1.00 mmol/L 1.12-1.27 PH, BLOOD (BEAKER) (test iomi=7882) 7.43 PROTHROMBIN [id number] 04:54:00 Test Item Value Reference Range Comments PROTIME (BEAKER) (test muex=431) 13.8 seconds 11.7-14.7 INR (BEAKER) (test vgut=513) 1.0 <=5.9 RECOMMENDED COUMADIN/WARFARIN INR THERAPY RANGESSTANDARD DOSE: 2.0 - 3.0 Includes: PROPHYLAXIS forvenous thrombosis, systemic embolization; TREATMENT for venous thrombosis and/or pulmonary embolus.HIGH RISK: Target INR is 2.5-3.5 for patients with mechanical heart valves.CREATININE, RANDOM [id number] 04: 48:00 Test Item Value Reference Range Comments CREATININE URINE (BEAKER) (test bjhv=322) 115.9 mg/dL Reference Range: No NormalsPROTEIN, RANDOM [id number] 04:48:00 Test Item Value Reference Range Comments PROTEIN, URINE (BEAKER) (test kiib=2213) 12 mg/dL 0-14 CBC W/PLT COUNT & AUTO [id number] 04:30:00 Test Item Value Reference Range Comments WHITE BLOOD CELL COUNT (BEAKER) (test fswc=135) 5.2 K/ L 3.5-10.5 RED BLOOD CELL COUNT (BEAKER) (test lkwg=656) 3.58 M/ L 3.93-5.22 HEMOGLOBIN (BEAKER) (test ekfq=913) 9.8 GM/DL 11.2-15.7 HEMATOCRIT (BEAKER) (test aaho=879) 31.6 % 34.1-44.9 MEAN CORPUSCULAR VOLUME (BEAKER) (test gfnd=353) 88.3 fL 79.4-94.8 MEAN CORPUSCULAR HEMOGLOBIN (BEAKER) (test 27.4 pg 25.6-32.2 bjtu=068) MEAN CORPUSCULAR HEMOGLOBIN CONC (BEAKER) (test 31.0 GM/DL 32.2-35.5 rvxi=035) RED CELL DISTRIBUTION WIDTH (BEAKER) (test 14.4 % 11.7-14.4 iypt=738) PLATELET COUNT (BEAKER) (test imli=331) 173 K/CU MM 150-450 MEAN PLATELET VOLUME (BEAKER) (test dpzf=853) 9.6 fL 9.4-12.3 NUCLEATED RED BLOOD CELLS (BEAKER) (test 0 /100 WBC 0-0 vjqz=371) NEUTROPHILS RELATIVE PERCENT (BEAKER) (test 67 % dlxf=112) LYMPHOCYTES RELATIVE PERCENT (BEAKER) (test 19 % tncq=471) MONOCYTES RELATIVE PERCENT (BEAKER) (test 8 % whcv=288) EOSINOPHILS RELATIVE PERCENT (BEAKER) (test 5 % aruo=900) BASOPHILS RELATIVE PERCENT (BEAKER) (test 1 % szxd=202) NEUTROPHILS ABSOLUTE COUNT (BEAKER) (test 3.43 K/ L 1.56-6.13 tyhc=200) LYMPHOCYTES ABSOLUTE COUNT (BEAKER) (test 0.98 K/ L 1.18-3.74 rihu=124) MONOCYTES ABSOLUTE COUNT (BEAKER) (test 0.42 K/ L 0.24-0.36 dtod=565) EOSINOPHILS ABSOLUTE COUNT (BEAKER) (test 0.26 K/ L 0.04-0.36 gxzw=935) BASOPHILS ABSOLUTE COUNT (BEAKER) (test 0.04 K/ L 0.01-0.08 hnql=388) IMMATURE GRANULOCYTES-RELATIVE PERCENT (BEAKER) 0 % 0-1 (test tocq=0025) U/S, ABDOMINAL, WITH [id number] 03:48:00Reason for exam:->TIPS workup , assess for [...] MDReport Verified Date/Time: 02/18/2019 03:48:21 Reading Location: [address] Neuro Reading Room Electronically signed by: Se SCHNEIDER 2018 03:48 AMPOCT-GLUCOSE [id number] 00:28:00 Test Item Value Reference Range Comments POC-GLUCOSE METER (BEAKER) 330 mg/dL 70-110 Will Repeat Test/TESTED AT (test fikf=9710) [facility] [address] [facility] [address] BODY FLUID CELL COUNT WITH [id number] 18:02:00 Test Item Value Reference Range Comments APPEARANCE FLUID (BEAKER) (test nsfh=937) Clear Clear COLOR FLUID (BEAKER) (test psbf=458) Yellow Colorless, Straw RBC FLUID (BEAKER) (test osvx=605) 20 /cu mm <=1 ADJUSTED WBC FLUID (BEAKER) (test agjv=3055) 50 /cu mm <=5 LINING CELLS (BEAKER) (test xrbr=0611) 0 /cu mm <=1 NEUTROPHILS FLUID (BEAKER) (test okza=5602) 1 % LYMPHS FLUID (BEAKER) (test nchp=703) 38 % MONO/MACROPHAGE FLUID (BEAKER) (test qfss=811) 61 % EOSINOPHILS FLUID (BEAKER) (test kbsn=026) 0 % BASO FLUID (BEAKER) (test rlnf=645) 0 % CONTAINER BODY FLUID (BEAKER) (test gbup=1633) EDTA Tube U/S, [id number] 16:30:00limit volume to 8 LReason for exam:-> [...] MDReport Verified Date/Time: 02/17 16:30:42 Reading Location: [address] Ultrasound Reading Room POCT-GLUCOSE [id number] 09:48:00 Test Item Value Reference Range Comments POC-GLUCOSE METER (BEAKER) 198 mg/dL 70-110 TESTED AT [address] (test ksfq=9808) [facility] [address] BASIC METABOLIC [id number] 06:30:00 Test Item Value Reference Range Comments SODIUM (BEAKER) (test 137 meq/L 136-145 znde=234) POTASSIUM (BEAKER) (test 4.5 meq/L 3.5-5.1 bogn=723) CHLORIDE (BEAKER) (test 107 meq/L 98-107 nayc=990) CO2 (BEAKER) (test 24 meq/L 22-29 nlvr=940) BLOOD UREA NITROGEN 41 mg/dL 7-21 (BEAKER) (test fwwq=681) CREATININE (BEAKER) (test 1.48 mg/dL 0.57-1.25 pcni=222) GLUCOSE RANDOM (BEAKER) 200 mg/dL 70-105 (test fzdx=193) CALCIUM (BEAKER) (test 8.9 mg/dL 8.4-10.2 kwap=657) EGFR (BEAKER) (test 36 mL/min/1.73 sq m ESTIMATED GFR IS NOT tfvg=0143) ACCURATE CREATININE CLEARANCE IN PREDICTING GLOMERULAR FILTRATION RATE. ESTIMATED GFR IS NOT APPLICABLE FOR DIALYSIS PATIENTS. POCT-GLUCOSE [id number] 17:31:00 Test Item Value Reference Range Comments POC-GLUCOSE METER (BEAKER) 165 mg/dL 70-[address] [facility] [address] [facility] (test dkzg=9193) [facility] [address] U/S, [id number] 16:00:00Reason for exam:->ascites SOBFINAL REPORT PROCEDURE: Ultrasound-guided paracentesis. INDICATION: Ascites. DESCRIPTION: This paracentesis was performed by Lesley Parnell under the direct supervision of Thomas Hendrix. After obtaining informed written consent, ultrasound scan of the abdomen identified ascites in the right lower quadrant. The overlying skin was prepped and draped in the usual, sterile fashion andlocal 2% lidocaine anesthesia was administered. A 5 Tuvaluan catheter was advanced into the peritonealcavity and 6000 mL of clear yellow fluid was removed. The catheter was removed without immediate complication. Samples were sent for analysis. IMPRESSION: Uncomplicated ultrasound-guided paracentesis with 6000 mL fluid removed. Signed: Thomas Hendrix [facility] Verified Date/Time: 16:00:46 Reading Location: [address] Ultrasound Reading Room BODY FLUID CELL COUNT WITH [id number] 15:52:00 Test Item Value Reference Range Comments APPEARANCE FLUID (BEAKER) (test rbgp=062) Clear Clear COLOR FLUID (BEAKER) (test vdij=091) Yellow Colorless, Straw RBC FLUID (BEAKER) (test fnte=784) 10 /cu mm <=1 ADJUSTED WBC FLUID (BEAKER) (test fryx=3018) 80 /cu mm <=5 LINING CELLS (BEAKER) (test ttot=4575) 0 /cu mm <=1 NEUTROPHILS FLUID (BEAKER) (test ycjg=1954) 5 % LYMPHS FLUID (BEAKER) (test upua=942) 35 % MONO/MACROPHAGE FLUID (BEAKER) (test dynu=372) 59 % EOSINOPHILS FLUID (BEAKER) (test jihw=304) 1 % BASO FLUID (BEAKER) (test acgs=546) 0 % CONTAINER BODY FLUID (BEAKER) (test fuyb=4606) EDTA Tube BASIC METABOLIC [id number] 07:28:00 Test Item Value Reference Range Comments SODIUM (BEAKER) (test 134 meq/L 136-145 apbf=625) POTASSIUM (BEAKER) (test 5.0 meq/L 3.5-5.1 nqrb=228) CHLORIDE (BEAKER) (test 107 meq/L 98-107 uzuu=832) CO2 (BEAKER) (test 22 meq/L 22-29 wkan=664) BLOOD UREA NITROGEN 46 mg/dL 7-21 (BEAKER) (test lthn=779) CREATININE (BEAKER) (test 1.61 mg/dL 0.57-1.25 trcp=171) GLUCOSE RANDOM (BEAKER) 220 mg/dL 70-105 (test fkwo=276) CALCIUM (BEAKER) (test 9.0 mg/dL 8.4-10.2 mxpl=049) EGFR (BEAKER) (test 33 mL/min/1.73 sq m ESTIMATED GFR IS NOT sxvm=8264) ACCURATE CREATININE CLEARANCE IN PREDICTING GLOMERULAR FILTRATION RATE. ESTIMATED GFR IS NOT APPLICABLE FOR DIALYSIS PATIENTS. HEPATIC FUNCTION [id number] 07:28:00 Test Item Value Reference Range Comments TOTAL PROTEIN (BEAKER) (test tqpi=467) 5.9 gm/dL 6.0-8.3 ALBUMIN (BEAKER) (test nzjx=6350) 3.0 g/dL 3.5-5.0 BILIRUBIN TOTAL (BEAKER) (test ghxt=771) 0.6 mg/dL 0.2-1.2 BILIRUBIN DIRECT (BEAKER) (test tqia=908) 0.3 mg/dL 0.1-0.5 ALKALINE PHOSPHATASE (BEAKER) (test kvuf=456) 154 U/L 40-150 AST (SGOT) (BEAKER) (test sfba=333) 22 U/L 5-34 ALT (SGPT) (BEAKER) (test dchv=124) 12 U/L 6-55 [id number] 07:27:00 Test Item Value Reference Range Comments MAGNESIUM (BEAKER) (test gtyh=979) 2.2 mg/dL 1.6-2.6 CBC W/PLT COUNT & AUTO [id number] 07:06:00 Test Item Value Reference Range Comments WHITE BLOOD CELL COUNT (BEAKER) (test xoeb=296) 6.2 K/ L 3.5-10.5 RED BLOOD CELL COUNT (BEAKER) (test gckk=051) 3.62 M/ L 3.93-5.22 HEMOGLOBIN (BEAKER) (test sbum=205) 9.8 GM/DL 11.2-15.7 HEMATOCRIT (BEAKER) (test wtjn=080) 31.4 % 34.1-44.9 MEAN CORPUSCULAR VOLUME (BEAKER) (test kwfn=192) 86.7 fL 79.4-94.8 MEAN CORPUSCULAR HEMOGLOBIN (BEAKER) (test 27.1 pg 25.6-32.2 mjut=438) MEAN CORPUSCULAR HEMOGLOBIN CONC (BEAKER) (test 31.2 GM/DL 32.2-35.5 zpiv=775) RED CELL DISTRIBUTION WIDTH (BEAKER) (test 14.5 % 11.7-14.4 hjnd=723) PLATELET COUNT (BEAKER) (test szml=130) 198 K/CU MM 150-450 MEAN PLATELET VOLUME (BEAKER) (test sxsh=713) 9.8 fL 9.4-12.3 NUCLEATED RED BLOOD CELLS (BEAKER) (test 0 /100 WBC 0-0 kzbp=185) NEUTROPHILS RELATIVE PERCENT (BEAKER) (test 64 % izpa=221) LYMPHOCYTES RELATIVE PERCENT (BEAKER) (test 22 % cqsl=478) MONOCYTES RELATIVE PERCENT (BEAKER) (test 9 % uwgf=735) EOSINOPHILS RELATIVE PERCENT (BEAKER) (test 5 % gbls=184) BASOPHILS RELATIVE PERCENT (BEAKER) (test 1 % unyd=230) NEUTROPHILS ABSOLUTE COUNT (BEAKER) (test 3.93 K/ L 1.56-6.13 dsjc=273) LYMPHOCYTES ABSOLUTE COUNT (BEAKER) (test 1.35 K/ L 1.18-3.74 ihyv=937) MONOCYTES ABSOLUTE COUNT (BEAKER) (test 0.53 K/ L 0.24-0.36 mxqs=041) EOSINOPHILS ABSOLUTE COUNT (BEAKER) (test 0.28 K/ L 0.04-0.36 czzv=170) BASOPHILS ABSOLUTE COUNT (BEAKER) (test 0.05 K/ L 0.01-0.08 rovv=259) IMMATURE GRANULOCYTES-RELATIVE PERCENT (BEAKER) 1 % 0-1 (test bwjt=0249) [id number] 06:49:00 Test Item Value Reference Range Comments PROTIME (BEAKER) (test phrr=961) 13.4 seconds 11.7-14.7 INR (BEAKER) (test ydue=240) 1.0 <=5.9 PARTIAL THROMBOPLASTIN TIME (BEAKER) (test 30.9 seconds 22.5-36.0 prqv=901) RECOMMENDED COUMADIN/WARFARIN INR THERAPY RANGESSTANDARD DOSE: 2.0 - 3.0 Includes: PROPHYLAXIS forvenous thrombosis, systemic embolization; TREATMENT for venous thrombosis and/or pulmonary embolus.HIGH RISK: Target INR is 2.5-3.5 for patients with mechanical heart valves.URINALYSIS W/ REFLEX URINE [id number] 05:32:00 Test Item Value Reference Range Comments COLOR (BEAKER) (test kbip=156) Yellow CLARITY (BEAKER) (test ogtz=962) Hazy SPECIFIC GRAVITY UA (BEAKER) (test fvyu=596) 1.021 1.001-1.035 PH UA (BEAKER) (test exex=489) 5.5 5.0-8.0 PROTEIN UA (BEAKER) (test cysu=001) 30 mg/dL Negative GLUCOSE UA (BEAKER) (test qnmj=992) Negative Negative KETONES UA (BEAKER) (test eita=660) Negative Negative BILIRUBIN UA (BEAKER) (test ngmv=728) Negative Negative BLOOD UA (BEAKER) (test tipf=680) Negative Negative NITRITE UA (BEAKER) (test lnav=755) Negative Negative LEUKOCYTE ESTERASE UA (BEAKER) (test rgcb=858) Large Negative UROBILINOGEN UA (BEAKER) (test ftjd=438) 2.0 mg/dL 0.2-1.0 RBC UA (BEAKER) (test jzmt=505) 7 /HPF WBC UA (BEAKER) (test awki=074) 7 /HPF MUCUS (BEAKER) (test ptld=4185) Rare SQUAMOUS EPITHELIAL (BEAKER) (test zllv=257) 6 /HPF HYALINE CASTS (BEAKER) (test dnrx=105) 40 /LPF SOURCE(BEAKER) (test olby=4316) POCT-GLUCOSE [id number] 05:00:00 Test Item Value Reference Range Comments POC-GLUCOSE METER (BEAKER) 227 mg/dL 70-[address] [facility] [address] [facility] (test ywmg=5054) [facility] [address] ALPHA FETOPROTEIN (AFP), TUMOR [id number] 15:55:00 Test Item Value Reference Range Comments ALPHA-FETOPROTEIN (BEAKER) (test jdaw=8432) 3.4 ng/mL <10.0 BASIC METABOLIC [id number] 15:40:00 Test Item Value Reference Range Comments SODIUM (BEAKER) (test 133 meq/L 136-145 wocd=601) POTASSIUM (BEAKER) (test 4.8 meq/L 3.5-5.1 fbus=352) CHLORIDE (BEAKER) (test 101 meq/L 98-107 klsj=282) CO2 (BEAKER) (test 23 meq/L 22-29 myob=181) BLOOD UREA NITROGEN 37 mg/dL 7-21 (BEAKER) (test obrs=104) CREATININE (BEAKER) (test 2.17 mg/dL 0.57-1.25 jsgh=567) GLUCOSE RANDOM (BEAKER) 191 mg/dL 70-105 (test omes=659) CALCIUM (BEAKER) (test 9.2 mg/dL 8.4-10.2 yoly=708) EGFR (BEAKER) (test 23 mL/min/1.73 sq m ESTIMATED GFR IS NOT psvl=0323) ACCURATE CREATININE CLEARANCE IN PREDICTING GLOMERULAR FILTRATION RATE. ESTIMATED GFR IS NOT APPLICABLE FOR DIALYSIS PATIENTS. HEPATIC FUNCTION [id number] 15:38:00 Test Item Value Reference Range Comments TOTAL PROTEIN (BEAKER) (test oexq=891) 6.9 gm/dL 6.0-8.3 ALBUMIN (BEAKER) (test jeqm=5405) 3.7 g/dL 3.5-5.0 BILIRUBIN TOTAL (BEAKER) (test grmt=515) 0.8 mg/dL 0.2-1.2 BILIRUBIN DIRECT (BEAKER) (test bsoi=926) 0.3 mg/dL 0.1-0.5 ALKALINE PHOSPHATASE (BEAKER) (test gobk=577) 95 U/L 40-150 AST (SGOT) (BEAKER) (test gysp=872) 24 U/L 5-34 ALT (SGPT) (BEAKER) (test hzzi=448) 14 U/L 6-55 PROTHROMBIN [id number] 15:29:00 Test Item Value Reference Range Comments PROTIME (BEAKER) (test ammk=842) 12.8 seconds 11.7-14.7 INR (BEAKER) (test rwqd=726) 1.0 <=5.9 RECOMMENDED COUMADIN/WARFARIN INR THERAPY RANGESSTANDARD DOSE: 2.0 - 3.0 Includes: PROPHYLAXIS forvenous thrombosis, systemic embolization; TREATMENT for venous thrombosis and/or pulmonary embolus.HIGH RISK: Target INR is 2.5-3.5 for patients with mechanical heart valves.CBC W/PLT COUNT & AUTO [id number] 15:17:00 Test Item Value Reference Range Comments WHITE BLOOD CELL COUNT (BEAKER) (test ptng=224) 7.8 K/ L 3.5-10.5 RED BLOOD CELL COUNT (BEAKER) (test qkly=895) 4.49 M/ L 3.93-5.22 HEMOGLOBIN (BEAKER) (test aarw=554) 12.4 GM/DL 11.2-15.7 HEMATOCRIT (BEAKER) (test vker=613) 39.1 % 34.1-44.9 MEAN CORPUSCULAR VOLUME (BEAKER) (test blrc=406) 87.1 fL 79.4-94.8 MEAN CORPUSCULAR HEMOGLOBIN (BEAKER) (test 27.6 pg 25.6-32.2 olrv=292) MEAN CORPUSCULAR HEMOGLOBIN CONC (BEAKER) (test 31.7 GM/DL 32.2-35.5 cxoa=425) RED CELL DISTRIBUTION WIDTH (BEAKER) (test 14.0 % 11.7-14.4 erzy=440) PLATELET COUNT (BEAKER) (test wlfv=227) 196 K/CU MM 150-450 MEAN PLATELET VOLUME (BEAKER) (test sqay=461) 9.9 fL 9.4-12.3 NUCLEATED RED BLOOD CELLS (BEAKER) (test 0 /100 WBC 0-0 wasq=085) NEUTROPHILS RELATIVE PERCENT (BEAKER) (test 72 % efox=678) LYMPHOCYTES RELATIVE PERCENT (BEAKER) (test 18 % pbqf=184) MONOCYTES RELATIVE PERCENT (BEAKER) (test 6 % vsqv=825) EOSINOPHILS RELATIVE PERCENT (BEAKER) (test 4 % bwhz=865) BASOPHILS RELATIVE PERCENT (BEAKER) (test 1 % asqq=509) NEUTROPHILS ABSOLUTE COUNT (BEAKER) (test 5.62 K/ L 1.56-6.13 dtvf=358) LYMPHOCYTES ABSOLUTE COUNT (BEAKER) (test 1.37 K/ L 1.18-3.74 xmny=370) MONOCYTES ABSOLUTE COUNT (BEAKER) (test 0.43 K/ L 0.24-0.36 gdvp=519) EOSINOPHILS ABSOLUTE COUNT (BEAKER) (test 0.28 K/ L 0.04-0.36 tcsl=285) BASOPHILS ABSOLUTE COUNT (BEAKER) (test 0.07 K/ L 0.01-0.08 kyuj=059) IMMATURE GRANULOCYTES-RELATIVE PERCENT (BEAKER) 0 % 0-1 (test kkxk=2186) ANTI-MITOCHONDRIAL AB, REFLEX TO [id number] 08:36:00 Test Item Value Reference Range Comments SCAN RESULT (test gzel=[id number]) OSMOLALITY, [id number] 10:30:00 Test Item Value Reference Range Comments OSMOLALITY, SERUM (BEAKER) (test jsuj=122) 301 mOsm/kg 275-295 POCT-GLUCOSE [id number] 08:26:00 Test Item Value Reference Range Comments POC-GLUCOSE METER (BEAKER) 243 mg/dL 70-110 TESTED AT [address] (test ieba=0912) [facility] [address] COMPREHENSIVE METABOLIC [id number] 08:05:00 Test Item Value Reference Range Comments TOTAL PROTEIN (BEAKER) 5.5 gm/dL 6.0-8.3 (test fvwa=148) ALBUMIN (BEAKER) (test 3.2 g/dL 3.5-5.0 yjaj=8245) ALKALINE PHOSPHATASE 75 U/L 40-150 (BEAKER) (test zqpl=223) BILIRUBIN TOTAL (BEAKER) 0.9 mg/dL 0.2-1.2 (test qjgv=347) SODIUM (BEAKER) (test 132 meq/L 136-145 moin=069) POTASSIUM (BEAKER) (test 4.3 meq/L 3.5-5.1 dout=127) CHLORIDE (BEAKER) (test 101 meq/L 98-107 egzh=593) CO2 (BEAKER) (test 25 meq/L 22-29 mevf=425) BLOOD UREA NITROGEN 45 mg/dL 7-21 (BEAKER) (test ndef=465) CREATININE (BEAKER) (test 1.89 mg/dL 0.57-1.25 nugh=052) GLUCOSE RANDOM (BEAKER) 241 mg/dL 70-105 (test sroa=171) CALCIUM (BEAKER) (test 8.6 mg/dL 8.4-10.2 alwx=024) AST (SGOT) (BEAKER) (test 19 U/L 5-34 dwyu=350) ALT (SGPT) (BEAKER) (test 10 U/L 6-55 fzlu=841) EGFR (BEAKER) (test 27 mL/min/1.73 sq m ESTIMATED GFR IS NOT zscb=5312) ACCURATE CREATININE CLEARANCE IN PREDICTING GLOMERULAR FILTRATION RATE. ESTIMATED GFR IS NOT APPLICABLE FOR DIALYSIS PATIENTS. [id number] 08:02:00 Test Item Value Reference Range Comments PHOSPHORUS (BEAKER) (test ivzh=951) 3.6 mg/dL 2.3-4.7 [id number] 08:02:00 Test Item Value Reference Range Comments MAGNESIUM (BEAKER) (test ldil=558) 2.0 mg/dL 1.6-2.6 CBC W/PLT COUNT & AUTO [id number] 05:40:00 Test Item Value Reference Range Comments WHITE BLOOD CELL COUNT (BEAKER) (test junk=409) 5.7 K/ L 3.5-10.5 RED BLOOD CELL COUNT (BEAKER) (test ovcm=868) 3.76 M/ L 3.93-5.22 HEMOGLOBIN (BEAKER) (test wnod=716) 10.6 GM/DL 11.2-15.7 HEMATOCRIT (BEAKER) (test boxi=605) 32.9 % 34.1-44.9 MEAN CORPUSCULAR VOLUME (BEAKER) (test ybkj=568) 87.5 fL 79.4-94.8 MEAN CORPUSCULAR HEMOGLOBIN (BEAKER) (test 28.2 pg 25.6-32.2 aykh=962) MEAN CORPUSCULAR HEMOGLOBIN CONC (BEAKER) (test 32.2 GM/DL 32.2-35.5 wezs=508) RED CELL DISTRIBUTION WIDTH (BEAKER) (test 14.2 % 11.7-14.4 ursl=171) PLATELET COUNT (BEAKER) (test ucql=349) 142 K/CU MM 150-450 MEAN PLATELET VOLUME (BEAKER) (test jakv=708) 9.8 fL 9.4-12.3 NUCLEATED RED BLOOD CELLS (BEAKER) (test 0 /100 WBC 0-0 rtag=659) NEUTROPHILS RELATIVE PERCENT (BEAKER) (test 70 % bfdl=890) LYMPHOCYTES RELATIVE PERCENT (BEAKER) (test 19 % onyb=335) MONOCYTES RELATIVE PERCENT (BEAKER) (test 7 % tfnf=817) EOSINOPHILS RELATIVE PERCENT (BEAKER) (test 3 % tahe=996) BASOPHILS RELATIVE PERCENT (BEAKER) (test 1 % necx=477) NEUTROPHILS ABSOLUTE COUNT (BEAKER) (test 3.99 K/ L 1.56-6.13 awcw=261) LYMPHOCYTES ABSOLUTE COUNT (BEAKER) (test 1.05 K/ L 1.18-3.74 ulmx=983) MONOCYTES ABSOLUTE COUNT (BEAKER) (test 0.40 K/ L 0.24-0.36 qkxk=927) EOSINOPHILS ABSOLUTE COUNT (BEAKER) (test 0.16 K/ L 0.04-0.36 nvwk=840) BASOPHILS ABSOLUTE COUNT (BEAKER) (test 0.04 K/ L 0.01-0.08 ccfk=710) IMMATURE GRANULOCYTES-RELATIVE PERCENT (BEAKER) 0 % 0-1 (test zirj=2467) CALCIUM, [id number] 05:17:00 Test Item Value Reference Range Comments CALCIUM IONIZED (BEAKER) (test ysoi=533) 1.06 mmol/L 1.12-1.27 PH, BLOOD (BEAKER) (test koju=7075) 7.41 U/S, RENAL, [id number] 03:59:00Reason for exam:->HEMALATHA/CKDShould this be performed at [...] Wilson Verified Date/Time: 11/24/2018 03:59:04 Reading Location: [address] Transitional Reading Room TROPONIN [id number] 23:19:00 Test Item Value Reference Range Comments TROPONIN I (BEAKER) (test rpby=962) < ng/mL 0.00-0.03 Troponin I (TnI) levels [...] acidosis, acute neurological disease, and persistent tachyarrhythmia.POCT-GLUCOSE [id number] 21:12:00 Test Item Value Reference Range Comments POC-GLUCOSE METER (BEAKER) 277 mg/dL 70-110 TESTED AT [address] (test kpuc=9918) [facility] [address] PROTEIN, RANDOM [id number] 20:11:00 Test Item Value Reference Range Comments PROTEIN, URINE (BEAKER) (test hveg=8530) 10 mg/dL 0-14 SODIUM, RANDOM [id number] 20:05:00 Test Item Value Reference Range Comments SODIUM URINE (BEAKER) (test yqtu=274) < meq/L Reference Range: No NormalsPOCT-GLUCOSE [id number] 17:28:00 Test Item Value Reference Range Comments POC-GLUCOSE METER (BEAKER) 291 mg/dL 70-110 TESTED AT [address] (test nolh=3487) [facility] [address] POCT-GLUCOSE [id number] 14:02:00 Test Item Value Reference Range Comments POC-GLUCOSE METER (BEAKER) 148 mg/dL 70-[address] [facility] [address] [facility] (test awgs=7194) [facility] [address] URINALYSIS W/ [id number] 13:32:00 Test Item Value Reference Range Comments COLOR (BEAKER) (test vitn=747) Yellow CLARITY (BEAKER) (test nbce=410) Clear SPECIFIC GRAVITY UA (BEAKER) (test 1.015 1.001-1.035 veen=503) PH UA (BEAKER) (test qqbl=829) 5.0 5.0-8.0 PROTEIN UA (BEAKER) (test oypn=556) Negative Negative GLUCOSE UA (BEAKER) (test nkgq=711) Negative Negative KETONES UA (BEAKER) (test glim=569) Negative Negative BILIRUBIN UA (BEAKER) (test dbol=135) Negative Negative BLOOD UA (BEAKER) (test xemr=858) Negative Negative NITRITE UA (BEAKER) (test yony=278) Negative Negative LEUKOCYTE ESTERASE UA (BEAKER) (test Negative Negative zuyp=936) UROBILINOGEN UA (BEAKER) (test hgks=087) 0.2 mg/dL 0.2-1.0 RBC UA (BEAKER) (test jywb=767) < /HPF WBC UA (BEAKER) (test lzfp=562) 2 /HPF BACTERIA (BEAKER) (test iqyx=029) Occasional SQUAMOUS EPITHELIAL (BEAKER) (test 19 /HPF coza=984) HYALINE CASTS (BEAKER) (test yrrc=762) 5 /LPF AMORPHOUS CRYSTALS (BEAKER) (test Occasional zfts=1637) SOURCE(BEAKER) (test jmzw=9883) Urine, Clean Catch U/S, ABDOMINAL, [id number] 13:29:00Abdomen limited area? Add comment if clarification [...] Valles Verified Date/Time: 11/23/2018 13:29:13 Reading Location: [address] Transitional Reading Room U/S, [id number] 13:01:00Reason for exam:->Therapeutic paracentesisFINAL REPORT Paracentesis dated 11/23/2018 Procedure: Ultrasound-guided paracentesis. Preprocedure diagnosis: Ascites Postprocedure diagnosis: Ascites Conscious sedation: None. Radiologist: Giovanni Haas M.D. Pipe Organ Mechanic: None Anesthesia: 1% Xylocaine mixed with sodium bicarbonate local anesthesia. Technique: After obtaining informed consent, ultrasound-guided paracentesis was performed under usual sterile technique. Using a 5 pakistani drainage catheter , puncture was made in the right lower quadrant abdomen. Approximately 16,200 cc of serous fluid was removed. Patient tolerated the procedure well without complication. Complication: None Graft/Implant: None Estimated Blood Loss: None Impression: Ultrasound-guided paracentesis. Signed: Giovanni Haas Verified Date/Time: 11/23/2018 13:01:25 Reading Location: [facility] [id number] Ortho Consult Reading Room Electronically signedby: GIOVANNI HAAS M.D. on 2018 01:01 PMCBC W/PLT COUNT & AUTO [id number] 08:55:00 Test Item Value Reference Range Comments WHITE BLOOD CELL COUNT (BEAKER) (test jerj=570) 5.7 K/ L 3.5-10.5 RED BLOOD CELL COUNT (BEAKER) (test rswp=503) 3.72 M/ L 3.93-5.22 HEMOGLOBIN (BEAKER) (test sdiq=683) 10.5 GM/DL 11.2-15.7 HEMATOCRIT (BEAKER) (test sldg=297) 32.5 % 34.1-44.9 MEAN CORPUSCULAR VOLUME (BEAKER) (test azxj=479) 87.4 fL 79.4-94.8 MEAN CORPUSCULAR HEMOGLOBIN (BEAKER) (test 28.2 pg 25.6-32.2 demw=503) MEAN CORPUSCULAR HEMOGLOBIN CONC (BEAKER) (test 32.3 GM/DL 32.2-35.5 dvuu=230) RED CELL DISTRIBUTION WIDTH (BEAKER) (test 14.5 % 11.7-14.4 btot=543) PLATELET COUNT (BEAKER) (test fxji=761) 148 K/CU MM 150-450 MEAN PLATELET VOLUME (BEAKER) (test bwpx=488) 9.4 fL 9.4-12.3 NUCLEATED RED BLOOD CELLS (BEAKER) (test 0 /100 WBC 0-0 kxhb=766) NEUTROPHILS RELATIVE PERCENT (BEAKER) (test 63 % ihmh=009) LYMPHOCYTES RELATIVE PERCENT (BEAKER) (test 23 % pibv=203) MONOCYTES RELATIVE PERCENT (BEAKER) (test 8 % aayw=573) EOSINOPHILS RELATIVE PERCENT (BEAKER) (test 5 % ejsv=920) BASOPHILS RELATIVE PERCENT (BEAKER) (test 1 % vluk=572) NEUTROPHILS ABSOLUTE COUNT (BEAKER) (test 3.61 K/ L 1.56-6.13 nano=385) LYMPHOCYTES ABSOLUTE COUNT (BEAKER) (test 1.29 K/ L 1.18-3.74 bfyf=615) MONOCYTES ABSOLUTE COUNT (BEAKER) (test 0.47 K/ L 0.24-0.36 khcl=428) EOSINOPHILS ABSOLUTE COUNT (BEAKER) (test 0.28 K/ L 0.04-0.36 gjas=764) BASOPHILS ABSOLUTE COUNT (BEAKER) (test 0.05 K/ L 0.01-0.08 efte=236) IMMATURE GRANULOCYTES-RELATIVE PERCENT (BEAKER) 0 % 0-1 (test nyad=5325) POCT-GLUCOSE [id number] 07:43:00 Test Item Value Reference Range Comments POC-GLUCOSE METER (BEAKER) 196 mg/dL 70-[address] [facility] [address] [facility] (test wxdj=7323) [facility] [address] [id number] 06:53:00 Test Item Value Reference Range Comments FERRITIN (BEAKER) (test lfve=138) 52 ng/mL 5-275 HEPATITIS B [id number] 06:21:00 Test Item Value Reference Range Comments HEPATITIS B CORE TOTAL ANTIBODY (BEAKER) (test Nonreactive Nonreactive ciqp=822) HEPATITIS B SURFACE ANTIBODY (BEAKER) (test < mIU/mL <8.0 kclr=758) HEPATITIS B SURFACE ANTIGEN (2) (BEAKER) (test Nonreactive Nonreactive njnq=5468) HEPATITIS C [id number] 06:20:00 Test Item Value Reference Range Comments HEPATITIS C ANTIBODY (BEAKER) (test qpjo=961) Nonreactive Nonreactive HEPATITIS A [id number] 06:20:00 Test Item Value Reference Range Comments HEPATITIS A IGM ANTIBODY (BEAKER) (test Nonreactive Nonreactive egux=804) HEPATITIS A IGG ANTIBODY (BEAKER) (test Nonreactive Nonreactive ovah=4168) ALPHA FETOPROTEIN (AFP), TUMOR [id number] 06:14:00 Test Item Value Reference Range Comments ALPHA-FETOPROTEIN (BEAKER) (test qoli=0612) 2.1 ng/mL <10.0 COMPREHENSIVE METABOLIC [id number] 06:01:00 Test Item Value Reference Range Comments TOTAL PROTEIN (BEAKER) 5.9 gm/dL 6.0-8.3 (test udjz=554) ALBUMIN (BEAKER) (test 2.9 g/dL 3.5-5.0 zhmf=2066) ALKALINE PHOSPHATASE 96 U/L 40-150 (BEAKER) (test bhfb=056) BILIRUBIN TOTAL (BEAKER) 0.5 mg/dL 0.2-1.2 (test rupy=487) SODIUM (BEAKER) (test 132 meq/L 136-145 knxv=427) POTASSIUM (BEAKER) (test 4.3 meq/L 3.5-5.1 vdaa=807) CHLORIDE (BEAKER) (test 100 meq/L 98-107 xxma=827) CO2 (BEAKER) (test 26 meq/L 22-29 kgac=963) BLOOD UREA NITROGEN 50 mg/dL 7-21 (BEAKER) (test alzl=508) CREATININE (BEAKER) (test 2.27 mg/dL 0.57-1.25 hpvh=027) GLUCOSE RANDOM (BEAKER) 219 mg/dL 70-105 (test lpof=418) CALCIUM (BEAKER) (test 8.8 mg/dL 8.4-10.2 igjn=772) AST (SGOT) (BEAKER) (test 22 U/L 5-34 bqsp=826) ALT (SGPT) (BEAKER) (test 15 U/L 6-55 tnsv=287) EGFR (BEAKER) (test 22 mL/min/1.73 sq m ESTIMATED GFR IS NOT gpkc=5278) ACCURATE CREATININE CLEARANCE IN PREDICTING GLOMERULAR FILTRATION RATE. ESTIMATED GFR IS NOT APPLICABLE FOR DIALYSIS PATIENTS. IRON, TIBC, % SAT. (WITHOUT FERRITIN)2018-11-23 05:55:00 Test Item Value Reference Range Comments IRON (BEAKER) (test ruyk=518) 46.0 ug/dL 40.0-160.0 TOTAL IRON BINDING CAPACITY (BEAKER) (test 269 ug/dL 250-450 aryz=812) IRON % SATURATION (2) (BEAKER) (test cupq=0869) 17 % 20-55 [id number] 05:54:00 Test Item Value Reference Range Comments ALPHA-1 ANTITRYPSIN (BEAKER) (test iegi=062) 202.70 mg/dL 90.00-200.00 COMPREHENSIVE METABOLIC [id number] 00:16:00 Test Item Value Reference Range Comments TOTAL PROTEIN (BEAKER) 6.8 gm/dL 6.0-8.3 (test lvio=684) ALBUMIN (BEAKER) (test 3.3 g/dL 3.5-5.0 tjsv=9646) ALKALINE PHOSPHATASE 114 U/L 40-150 (BEAKER) (test gcgk=264) BILIRUBIN TOTAL (BEAKER) 0.6 mg/dL 0.2-1.2 (test vncc=869) SODIUM (BEAKER) (test 130 meq/L 136-145 wsfd=783) POTASSIUM (BEAKER) (test 4.4 meq/L 3.5-5.1 bgnv=661) CHLORIDE (BEAKER) (test 99 meq/L 98-107 uynm=309) CO2 (BEAKER) (test 22 meq/L 22-29 btir=517) BLOOD UREA NITROGEN 46 mg/dL 7-21 (BEAKER) (test pyup=473) CREATININE (BEAKER) (test 2.40 mg/dL 0.57-1.25 prvi=180) GLUCOSE RANDOM (BEAKER) 153 mg/dL 70-105 (test dgag=595) CALCIUM (BEAKER) (test 9.1 mg/dL 8.4-10.2 rdzo=179) AST (SGOT) (BEAKER) (test 25 U/L 5-34 hmhz=700) ALT (SGPT) (BEAKER) (test 17 U/L 6-55 ubya=438) EGFR (BEAKER) (test 21 mL/min/1.73 sq m ESTIMATED GFR IS NOT iudj=4336) ACCURATE CREATININE CLEARANCE IN PREDICTING GLOMERULAR FILTRATION RATE. ESTIMATED GFR IS NOT APPLICABLE FOR DIALYSIS PATIENTS. PT/[id number] 23:52:00 Test Item Value Reference Range Comments PROTIME (BEAKER) (test dkjb=625) 13.3 seconds 11.7-14.7 INR (BEAKER) (test ygxm=536) 1.0 <=5.9 PARTIAL THROMBOPLASTIN TIME (BEAKER) (test 26.9 seconds 22.5-36.0 isrs=189) RECOMMENDED COUMADIN/WARFARIN INR THERAPY RANGESSTANDARD DOSE: 2.0 - 3.0 Includes: PROPHYLAXIS forvenous thrombosis, systemic embolization; TREATMENT for venous thrombosis and/or pulmonary embolus.HIGH RISK: Target INR is 2.5-3.5 for patients with mechanical heart valves.POCT-GLUCOSE [id number] 21:25:00 Test Item Value Reference Range Comments POC-GLUCOSE METER (BEAKER) 178 mg/dL 70-[address] [facility] [address] [facility] (test jgoj=2709) [facility] [id number]
[2019-09-25 08:36] VITALS: TEMP 98.6; BMI 46.3
[2019-09-25] MEDS ORDERED: ALBUMIN HUMAN 25% 200 ML IV ONE (09:38)
[2019-09-25 10:42] VITALS: BP 119/57; O2SAT 96
--- NOTE | 2019-09-25 11:15 | RAD REPORT ---
EXAM DESCRIPTION: US - Paracentesis Proc Guidance - 09/25/2019 9:20 am CLINICAL HISTORY: Liver and renal disease with ascites FINDINGS: The risks, benefits and alternatives to the procedure were explained to the patient and in formed consent obtained. The skin and subcutaneous tissues were anesthetized with Lidocaine. Under sonographic guidance an 8 F rench catheter was placed into the left lower quadrant. 3.5 liters of yellow fluid was removed and se nt to the lab. The patient experienced no immediate complication. IMPRESSION: Paracentesis
[2019-09-25 11:21] LABS: Appearance SLT. TURBID (CLEAR); Body Fluid Source PERITONEAL; Body Fluid WBC 134 /mm^3; Color of fluid Yellow (COLORLESS)
== END 2019-09-25 10:46 | disposition home or self-care (01) ==
LOC: DS 07:42
PROVIDERS: ATTEND Internal Medicine Hepatology
DX: R18.8 Other ascites (principal)
CPT/HCPCS: 36415; 89050; 82565; 96365; 49083; P9047

== ENCOUNTER 2019-09-29 00:45 | Inpatient (IN) | payer OTHER ==
--- OUTSIDE RECORDS SUMMARY | 2019-09-29 00:56 | XMS REPORT ---
:1960 [facility] Address [address] [place] [address] Dr. Melton [address] [place] [id number] Care Team Providers Name Role Phone DANIEL [...] Reference Range Comments TOTAL PROTEIN (BEAKER) (test gspp=236) 6.5 gm/dL 6.0-8.3 ALBUMIN (BEAKER) (test phks=2064) 3.0 g/dL 3.5-5.0 BILIRUBIN TOTAL (BEAKER) (test rqau=464) 1.5 mg/dL 0.2-1.2 BILIRUBIN DIRECT (BEAKER) (test mvch=399) 0.7 mg/dL 0.1-0.5 ALKALINE PHOSPHATASE (BEAKER) (test qvbn=370) 120 U/L 40-150 AST (SGOT) (BEAKER) (test rxok=582) 34 U/L 5-34 ALT (SGPT) (BEAKER) (test zllk=838) 21 U/L 6-55 BASIC METABOLIC [id number] 15:39:00 Test Item Value Reference Range Comments SODIUM (BEAKER) (test 135 meq/L 136-145 dewj=693) POTASSIUM (BEAKER) (test 3.8 meq/L 3.5-5.1 ihvt=367) CHLORIDE (BEAKER) (test 99 meq/L 98-107 vbxu=313) CO2 (BEAKER) (test 31 meq/L 22-29 wael=390) BLOOD UREA NITROGEN 21 mg/dL 7-21 (BEAKER) (test nyzy=061) CREATININE (BEAKER) (test 1.70 mg/dL 0.57-1.25 lvqt=414) GLUCOSE RANDOM (BEAKER) 290 mg/dL 70-105 (test jfyt=830) CALCIUM (BEAKER) (test 8.4 mg/dL 8.4-10.2 wirm=740) EGFR (BEAKER) (test 31 mL/min/1.73 sq m ESTIMATED GFR IS NOT pmxj=2523) ACCURATE CREATININE CLEARANCE IN PREDICTING GLOMERULAR FILTRATION RATE. ESTIMATED GFR IS NOT APPLICABLE FOR DIALYSIS PATIENTS. PROTHROMBIN [id number] 15:39:00 Test Item Value Reference Range Comments PROTIME (BEAKER) (test skjo=582) 14.2 seconds 11.9-14.2 INR (BEAKER) (test kyzj=213) 1.2 <=5.9 Effective 04/01/2019: PT Reference Range ChangeNew: 11.9-14.2 Previous: 11.7- 14.7RECOMMENDED COUMADIN/WARFARIN INR THERAPY RANGESSTANDARD DOSE: 2.0-3.0 Includes: PROPHYLAXIS for venous thrombosis, systemic embolization; TREATMENT for venous thrombosis and/or pulmonary embolus.HIGH RISK: Target INR is2.5-3.5 for patients wiht mechanical heart valves.CBC W/PLT COUNT & AUTO [id number] 15:25:00 Test Item Value Reference Range Comments WHITE BLOOD CELL COUNT (BEAKER) (test rdjg=896) 5.8 K/ L 3.5-10.5 RED BLOOD CELL COUNT (BEAKER) (test vhrg=124) 3.30 M/ L 3.93-5.22 HEMOGLOBIN (BEAKER) (test tuma=814) 8.9 GM/DL 11.2-15.7 HEMATOCRIT (BEAKER) (test walk=249) 28.2 % 34.1-44.9 MEAN CORPUSCULAR VOLUME (BEAKER) (test gefn=922) 85.5 fL 79.4-94.8 MEAN CORPUSCULAR HEMOGLOBIN (BEAKER) (test 27.0 pg 25.6-32.2 ifvg=038) MEAN CORPUSCULAR HEMOGLOBIN CONC (BEAKER) (test 31.6 GM/DL 32.2-35.5 wocp=025) RED CELL DISTRIBUTION WIDTH (BEAKER) (test 16.6 % 11.7-14.4 hbmq=012) PLATELET COUNT (BEAKER) (test pqpo=736) 185 K/CU MM 150-450 MEAN PLATELET VOLUME (BEAKER) (test nyxi=721) 9.0 fL 9.4-12.3 NUCLEATED RED BLOOD CELLS (BEAKER) (test 0 /100 WBC 0-0 ewkj=959) NEUTROPHILS RELATIVE PERCENT (BEAKER) (test 50 % mrrt=379) LYMPHOCYTES RELATIVE PERCENT (BEAKER) (test 32 % ckdw=643) MONOCYTES RELATIVE PERCENT (BEAKER) (test 7 % fuqc=231) EOSINOPHILS RELATIVE PERCENT (BEAKER) (test 10 % pxih=259) BASOPHILS RELATIVE PERCENT (BEAKER) (test 2 % ikkf=013) NEUTROPHILS ABSOLUTE COUNT (BEAKER) (test 2.88 K/ L 1.56-6.13 lhiy=547) LYMPHOCYTES ABSOLUTE COUNT (BEAKER) (test 1.86 K/ L 1.18-3.74 cyls=675) MONOCYTES ABSOLUTE COUNT (BEAKER) (test 0.38 K/ L 0.24-0.36 upto=770) EOSINOPHILS ABSOLUTE COUNT (BEAKER) (test 0.55 K/ L 0.04-0.36 hpis=574) BASOPHILS ABSOLUTE COUNT (BEAKER) (test 0.10 K/ L 0.01-0.08 ntvq=502) IMMATURE GRANULOCYTES-RELATIVE PERCENT (BEAKER) 0 % 0-1 (test gdni=3758) PROTHROMBIN [id number] 17:20:00 Test Item Value Reference Range Comments PROTIME (BEAKER) (test cdly=293) 13.6 seconds 11.9-14.2 INR (BEAKER) (test qgpe=565) 1.1 <=5.9 Effective 04/01/2019: PT Reference Range ChangeNew: 11.9-14.2 Previous: 11.7- 14.7RECOMMENDED COUMADIN/WARFARIN INR THERAPY RANGESSTANDARD DOSE: 2.0-3.0 Includes: PROPHYLAXIS for venous thrombosis, systemic embolization; TREATMENT for venous thrombosis and/or pulmonary embolus.HIGH RISK: Target INR is2.5-3.5 for patients wiht mechanical heart valves.HEPATIC FUNCTION [id number] 17:16 :00 Test Item Value Reference Range Comments TOTAL PROTEIN (BEAKER) (test gixn=910) 6.7 gm/dL 6.0-8.3 ALBUMIN (BEAKER) (test kqoc=5088) 3.0 g/dL 3.5-5.0 BILIRUBIN TOTAL (BEAKER) (test nlca=022) 1.4 mg/dL 0.2-1.2 BILIRUBIN DIRECT (BEAKER) (test nvyc=082) 0.7 mg/dL 0.1-0.5 ALKALINE PHOSPHATASE (BEAKER) (test qnbt=046) 139 U/L 40-150 AST (SGOT) (BEAKER) (test riax=207) 32 U/L 5-34 ALT (SGPT) (BEAKER) (test fulp=686) 16 U/L 6-55 BASIC METABOLIC [id number] 17:16:00 Test Item Value Reference Range Comments SODIUM (BEAKER) (test 139 meq/L 136-145 brfj=970) POTASSIUM (BEAKER) (test 3.6 meq/L 3.5-5.1 kndb=458) CHLORIDE (BEAKER) (test 99 meq/L 98-107 dqxu=101) CO2 (BEAKER) (test 32 meq/L 22-29 xbth=590) BLOOD UREA NITROGEN 26 mg/dL 7-21 (BEAKER) (test oodh=078) CREATININE (BEAKER) (test 1.68 mg/dL 0.57-1.25 pxhz=136) GLUCOSE RANDOM (BEAKER) 263 mg/dL 70-105 (test csxa=379) CALCIUM (BEAKER) (test 9.0 mg/dL 8.4-10.2 lbro=725) EGFR (BEAKER) (test 31 mL/min/1.73 sq m ESTIMATED GFR IS NOT puht=6228) ACCURATE CREATININE CLEARANCE IN PREDICTING GLOMERULAR FILTRATION RATE. ESTIMATED GFR IS NOT APPLICABLE FOR DIALYSIS PATIENTS. CBC W/PLT COUNT & AUTO [id number] 17:01:00 Test Item Value Reference Range Comments WHITE BLOOD CELL COUNT (BEAKER) (test jewo=751) 7.4 K/ L 3.5-10.5 RED BLOOD CELL COUNT (BEAKER) (test amqw=275) 3.44 M/ L 3.93-5.22 HEMOGLOBIN (BEAKER) (test mjhs=300) 9.6 GM/DL 11.2-15.7 HEMATOCRIT (BEAKER) (test iyup=860) 30.1 % 34.1-44.9 MEAN CORPUSCULAR VOLUME (BEAKER) (test paul=768) 87.5 fL 79.4-94.8 MEAN CORPUSCULAR HEMOGLOBIN (BEAKER) (test 27.9 pg 25.6-32.2 hhac=554) MEAN CORPUSCULAR HEMOGLOBIN CONC (BEAKER) (test 31.9 GM/DL 32.2-35.5 pxpn=576) RED CELL DISTRIBUTION WIDTH (BEAKER) (test 16.0 % 11.7-14.4 udbb=168) PLATELET COUNT (BEAKER) (test urwc=201) 190 K/CU MM 150-450 MEAN PLATELET VOLUME (BEAKER) (test bcob=326) 9.3 fL 9.4-12.3 NUCLEATED RED BLOOD CELLS (BEAKER) (test 0 /100 WBC 0-0 titq=106) NEUTROPHILS RELATIVE PERCENT (BEAKER) (test 65 % oxiu=295) LYMPHOCYTES RELATIVE PERCENT (BEAKER) (test 23 % miyu=822) MONOCYTES RELATIVE PERCENT (BEAKER) (test 6 % ubbe=236) EOSINOPHILS RELATIVE PERCENT (BEAKER) (test 5 % wxsj=949) BASOPHILS RELATIVE PERCENT (BEAKER) (test 1 % oqdi=843) NEUTROPHILS ABSOLUTE COUNT (BEAKER) (test 4.83 K/ L 1.56-6.13 mvgg=425) LYMPHOCYTES ABSOLUTE COUNT (BEAKER) (test 1.67 K/ L 1.18-3.74 kqmv=144) MONOCYTES ABSOLUTE COUNT (BEAKER) (test 0.41 K/ L 0.24-0.36 tbja=002) EOSINOPHILS ABSOLUTE COUNT (BEAKER) (test 0.40 K/ L 0.04-0.36 vesi=074) BASOPHILS ABSOLUTE COUNT (BEAKER) (test 0.06 K/ L 0.01-0.08 agfq=786) IMMATURE GRANULOCYTES-RELATIVE PERCENT (BEAKER) 0 % 0-1 (test dvtj=3480) POCT-GLUCOSE [id number] 13:48:00 Test Item Value Reference Range Comments POC-GLUCOSE METER (BEAKER) 203 mg/dL 70-110 TESTED AT [facility] [address] [facility] (test hpql=3650) [facility] [address] POCT-GLUCOSE [id number] 09:45:00 Test Item Value Reference Range Comments POC-GLUCOSE METER (BEAKER) 168 mg/dL 70-110 TESTED AT [facility] [address] [facility] (test pkps=3192) [facility] [address] POCT-GLUCOSE [id number] 08:06:00 Test Item Value Reference Range Comments POC-GLUCOSE METER (BEAKER) 177 mg/dL 70-110 TESTED AT [address] (test zigr=3028) [facility] [address] COMPREHENSIVE METABOLIC [id number] 06:11:00 Test Item Value Reference Range Comments TOTAL PROTEIN (BEAKER) 5.5 gm/dL 6.0-8.3 (test rkcn=583) ALBUMIN (BEAKER) (test 3.0 g/dL 3.5-5.0 ypta=4824) ALKALINE PHOSPHATASE 117 U/L 40-150 (BEAKER) (test cdgy=857) BILIRUBIN TOTAL (BEAKER) 1.2 mg/dL 0.2-1.2 (test wpwp=654) SODIUM (BEAKER) (test 138 meq/L 136-145 ucio=733) POTASSIUM (BEAKER) (test 4.1 meq/L 3.5-5.1 jeqb=644) CHLORIDE (BEAKER) (test 102 meq/L 98-107 catc=331) CO2 (BEAKER) (test 29 meq/L 22-29 eqcj=420) BLOOD UREA NITROGEN 23 mg/dL 7-21 (BEAKER) (test tyzw=769) CREATININE (BEAKER) (test 1.26 mg/dL 0.57-1.25 nmhf=615) GLUCOSE RANDOM (BEAKER) 177 mg/dL 70-105 (test airh=121) CALCIUM (BEAKER) (test 8.3 mg/dL 8.4-10.2 hszf=157) AST (SGOT) (BEAKER) (test 26 U/L 5-34 ltai=231) ALT (SGPT) (BEAKER) (test 9 U/L 6-55 soua=297) EGFR (BEAKER) (test 43 mL/min/1.73 sq m ESTIMATED GFR IS NOT jxdt=1046) ACCURATE CREATININE CLEARANCE IN PREDICTING GLOMERULAR FILTRATION RATE. ESTIMATED GFR IS NOT APPLICABLE FOR DIALYSIS PATIENTS. CBC (HEMOGRAM ONLY)2019-06-03 05:17:00 Test Item Value Reference Range Comments WHITE BLOOD CELL COUNT (BEAKER) (test rjdo=583) 6.0 K/ L 3.5-10.5 RED BLOOD CELL COUNT (BEAKER) (test kvzk=238) 2.95 M/ L 3.93-5.22 HEMOGLOBIN (BEAKER) (test ajij=542) 8.1 GM/DL 11.2-15.7 HEMATOCRIT (BEAKER) (test dslm=760) 26.3 % 34.1-44.9 MEAN CORPUSCULAR VOLUME (BEAKER) (test adkp=131) 89.2 fL 79.4-94.8 MEAN CORPUSCULAR HEMOGLOBIN (BEAKER) (test 27.5 pg 25.6-32.2 mrpm=096) MEAN CORPUSCULAR HEMOGLOBIN CONC (BEAKER) (test 30.8 GM/DL 32.2-35.5 zgkd=044) RED CELL DISTRIBUTION WIDTH (BEAKER) (test 17.3 % 11.7-14.4 rwaq=495) PLATELET COUNT (BEAKER) (test nxjk=092) 203 K/CU MM 150-450 MEAN PLATELET VOLUME (BEAKER) (test hxol=369) 9.2 fL 9.4-12.3 NUCLEATED RED BLOOD CELLS (BEAKER) (test 0 /100 WBC 0-0 psou=768) POCT-GLUCOSE [id number] 23:37:00 Test Item Value Reference Range Comments POC-GLUCOSE METER (BEAKER) 212 mg/dL 70-110 TESTED AT [place] [id number] [facility] (test uvgg=8726) [facility] [address] POCT-GLUCOSE [id number] 16:58:00 Test Item Value Reference Range Comments POC-GLUCOSE METER (BEAKER) 313 mg/dL 70-110 TESTED AT [address] (test mwze=0715) [facility] [address] ANG, TIPSS [id number] 14:25:00Reason for exam:->still recurrent paracentesisFINAL REPORT Procedures:1. [...] the patient's medical record by the nurse. Manager Marketing Sales: Akil Chung MD. Entry Level Sales Representative: MD Ishaan (Fellow) Approach: 1. Right lower [...] skin and deep soft tissues. A 5 Mongolian one-step catheter wasinserted and removed from the [...] The needle was exchanged for a 4 Mongolian micropuncture sheath. The micropuncture sheath was exchanged over a 0.035 Bentson wire for a 5 Mongolian x 10 cm vascular sheath. The TIPS stent was then cannulated using a 5 Mongolian C2 catheter and 0.035 angled Glidewire. The [...] Verified Date/Time: 06/02/2019 14:25:34 Reading Location : [place] [address] Angio Body Reading Room POCT-GLUCOSE [id number] 11:52:00 Test Item Value Reference Range Comments POC-GLUCOSE METER (BEAKER) 159 mg/dL 70-110 TESTED AT [facility] [address] [facility] (test gkqs=1476) [facility] [address] [id number] 05:55:00 Test Item Value Reference Range Comments MAGNESIUM (BEAKER) (test kzxx=543) 1.6 mg/dL 1.6-2.6 COMPREHENSIVE METABOLIC [id number] 05:55:00 Test Item Value Reference Range Comments TOTAL PROTEIN (BEAKER) 5.7 gm/dL 6.0-8.3 (test rczd=609) ALBUMIN (BEAKER) (test 3.3 g/dL 3.5-5.0 vuhe=2293) ALKALINE PHOSPHATASE 118 U/L 40-150 (BEAKER) (test tkst=389) BILIRUBIN TOTAL (BEAKER) 1.4 mg/dL 0.2-1.2 (test sscx=338) SODIUM (BEAKER) (test 140 meq/L 136-145 sayc=884) POTASSIUM (BEAKER) (test 3.3 meq/L 3.5-5.1 jiyt=780) CHLORIDE (BEAKER) (test 101 meq/L 98-107 dzgt=264) CO2 (BEAKER) (test 31 meq/L 22-29 xsix=842) BLOOD UREA NITROGEN 23 mg/dL 7-21 (BEAKER) (test klec=854) CREATININE (BEAKER) (test 1.33 mg/dL 0.57-1.25 plwq=384) GLUCOSE RANDOM (BEAKER) 131 mg/dL 70-105 (test uqoo=234) CALCIUM (BEAKER) (test 8.7 mg/dL 8.4-10.2 udku=387) AST (SGOT) (BEAKER) (test 27 U/L 5-34 uvpi=406) ALT (SGPT) (BEAKER) (test 11 U/L 6-55 qptt=452) EGFR (BEAKER) (test 41 mL/min/1.73 sq m ESTIMATED GFR IS NOT zbys=1550) ACCURATE CREATININE CLEARANCE IN PREDICTING GLOMERULAR FILTRATION RATE. ESTIMATED GFR IS NOT APPLICABLE FOR DIALYSIS PATIENTS. CBC W/PLT COUNT & AUTO [id number] 05:43:00 Test Item Value Reference Range Comments WHITE BLOOD CELL COUNT (BEAKER) (test vgfg=866) 6.0 K/ L 3.5-10.5 RED BLOOD CELL COUNT (BEAKER) (test avoz=141) 2.97 M/ L 3.93-5.22 HEMOGLOBIN (BEAKER) (test npzr=435) 8.2 GM/DL 11.2-15.7 HEMATOCRIT (BEAKER) (test xiut=929) 26.0 % 34.1-44.9 MEAN CORPUSCULAR VOLUME (BEAKER) (test xmjq=040) 87.5 fL 79.4-94.8 MEAN CORPUSCULAR HEMOGLOBIN (BEAKER) (test 27.6 pg 25.6-32.2 jbkx=118) MEAN CORPUSCULAR HEMOGLOBIN CONC (BEAKER) (test 31.5 GM/DL 32.2-35.5 etqy=004) RED CELL DISTRIBUTION WIDTH (BEAKER) (test 17.7 % 11.7-14.4 sroe=873) PLATELET COUNT (BEAKER) (test paun=891) 194 K/CU MM 150-450 MEAN PLATELET VOLUME (BEAKER) (test wwag=141) 9.3 fL 9.4-12.3 NUCLEATED RED BLOOD CELLS (BEAKER) (test 0 /100 WBC 0-0 paho=627) NEUTROPHILS RELATIVE PERCENT (BEAKER) (test 48 % sdpx=910) LYMPHOCYTES RELATIVE PERCENT (BEAKER) (test 31 % pbtw=825) MONOCYTES RELATIVE PERCENT (BEAKER) (test 10 % lfew=138) EOSINOPHILS RELATIVE PERCENT (BEAKER) (test 9 % csff=166) BASOPHILS RELATIVE PERCENT (BEAKER) (test 1 % azmn=851) NEUTROPHILS ABSOLUTE COUNT (BEAKER) (test 2.84 K/ L 1.56-6.13 qscv=132) LYMPHOCYTES ABSOLUTE COUNT (BEAKER) (test 1.87 K/ L 1.18-3.74 iygu=228) MONOCYTES ABSOLUTE COUNT (BEAKER) (test 0.60 K/ L 0.24-0.36 unrv=137) EOSINOPHILS ABSOLUTE COUNT (BEAKER) (test 0.56 K/ L 0.04-0.36 ytrm=410) BASOPHILS ABSOLUTE COUNT (BEAKER) (test 0.08 K/ L 0.01-0.08 adhl=119) IMMATURE GRANULOCYTES-RELATIVE PERCENT (BEAKER) 0 % 0-1 (test dtxg=4762) [id number] 05:42:00 Test Item Value Reference Range Comments PHOSPHORUS (BEAKER) (test oute=832) 2.3 mg/dL 2.3-4.7 POCT-GLUCOSE [id number] 22:34:00 Test Item Value Reference Range Comments POC-GLUCOSE METER (BEAKER) 192 mg/dL 70-110 TESTED AT [address] (test bylm=0521) [place] [id number] POCT-GLUCOSE [id number] 17:01:00 Test Item Value Reference Range Comments POC-GLUCOSE METER (BEAKER) 250 mg/dL 70-110 TESTED AT [address] (test itqb=0276) [place] [address] [id number] 07:42:00 Test Item Value Reference Range Comments MAGNESIUM (BEAKER) (test 1.6 mg/dL 1.6-2.6 Specimen slightly hemolyzed knls=264) [id number] 07:42:00 Test Item Value Reference Range Comments PHOSPHORUS (BEAKER) (test 2.8 mg/dL 2.3-4.7 Specimen slightly hemolyzed efkx=807) COMPREHENSIVE METABOLIC [id number] 07:42:00 Test Item Value Reference Range Comments TOTAL PROTEIN (BEAKER) 5.5 gm/dL 6.0-8.3 Specimen slightly (test wicf=990) hemolyzed ALBUMIN (BEAKER) (test 2.9 g/dL 3.5-5.0 Specimen slightly dobu=6782) hemolyzed ALKALINE PHOSPHATASE 125 U/L 40-150 (BEAKER) (test rsek=540) BILIRUBIN TOTAL (BEAKER) 1.1 mg/dL 0.2-1.2 Specimen slightly (test enuh=384) hemolyzed SODIUM (BEAKER) (test 141 meq/L 136-145 rlvb=695) POTASSIUM (BEAKER) (test 3.6 meq/L 3.5-5.1 Specimen slightly sjty=648) hemolyzed CHLORIDE (BEAKER) (test 101 meq/L 98-107 umwr=182) CO2 (BEAKER) (test 31 meq/L 22-29 zjdl=752) BLOOD UREA NITROGEN 23 mg/dL 7-21 (BEAKER) (test ldtx=461) CREATININE (BEAKER) (test 1.50 mg/dL 0.57-1.25 Specimen slightly krvd=660) hemolyzed GLUCOSE RANDOM (BEAKER) 153 mg/dL 70-105 (test wkun=407) CALCIUM (BEAKER) (test 8.7 mg/dL 8.4-10.2 wwtb=657) AST (SGOT) (BEAKER) (test 35 U/L 5-34 Specimen slightly ootq=857) hemolyzed ALT (SGPT) (BEAKER) (test 12 U/L 6-55 Specimen slightly mxsd=848) hemolyzed EGFR (BEAKER) (test 35 mL/min/1.73 sq m ESTIMATED GFR IS NOT tsmn=5365) ACCURATE CREATININE CLEARANCE IN PREDICTING GLOMERULAR FILTRATION RATE. ESTIMATED GFR IS NOT APPLICABLE FOR DIALYSIS PATIENTS. POCT-GLUCOSE [id number] 07:38:00 Test Item Value Reference Range Comments POC-GLUCOSE METER (BEAKER) 154 mg/dL 70-110 TESTED AT [facility] [address] [facility] (test mgmf=2909) [facility] [address] CBC W/PLT COUNT & AUTO [id number] 06:24:00 Test Item Value Reference Range Comments WHITE BLOOD CELL COUNT (BEAKER) (test rhht=004) 6.0 K/ L 3.5-10.5 RED BLOOD CELL COUNT (BEAKER) (test mdpi=575) 3.09 M/ L 3.93-5.22 HEMOGLOBIN (BEAKER) (test bnqr=770) 8.5 GM/DL 11.2-15.7 HEMATOCRIT (BEAKER) (test iydb=856) 27.0 % 34.1-44.9 MEAN CORPUSCULAR VOLUME (BEAKER) (test xbqo=432) 87.4 fL 79.4-94.8 MEAN CORPUSCULAR HEMOGLOBIN (BEAKER) (test 27.5 pg 25.6-32.2 vuqj=340) MEAN CORPUSCULAR HEMOGLOBIN CONC (BEAKER) (test 31.5 GM/DL 32.2-35.5 umyv=714) RED CELL DISTRIBUTION WIDTH (BEAKER) (test 17.7 % 11.7-14.4 hrzg=800) PLATELET COUNT (BEAKER) (test vbnu=622) 196 K/CU MM 150-450 MEAN PLATELET VOLUME (BEAKER) (test unop=087) 8.9 fL 9.4-12.3 NUCLEATED RED BLOOD CELLS (BEAKER) (test 0 /100 WBC 0-0 cjgk=936) NEUTROPHILS RELATIVE PERCENT (BEAKER) (test 44 % ciyh=350) LYMPHOCYTES RELATIVE PERCENT (BEAKER) (test 34 % wnke=348) MONOCYTES RELATIVE PERCENT (BEAKER) (test 11 % opgi=727) EOSINOPHILS RELATIVE PERCENT (BEAKER) (test 9 % szee=136) BASOPHILS RELATIVE PERCENT (BEAKER) (test 2 % vshn=663) NEUTROPHILS ABSOLUTE COUNT (BEAKER) (test 2.64 K/ L 1.56-6.13 csuq=131) LYMPHOCYTES ABSOLUTE COUNT (BEAKER) (test 2.03 K/ L 1.18-3.74 lgzt=618) MONOCYTES ABSOLUTE COUNT (BEAKER) (test 0.64 K/ L 0.24-0.36 rnke=252) EOSINOPHILS ABSOLUTE COUNT (BEAKER) (test 0.54 K/ L 0.04-0.36 ktde=692) BASOPHILS ABSOLUTE COUNT (BEAKER) (test 0.09 K/ L 0.01-0.08 zapu=947) IMMATURE GRANULOCYTES-RELATIVE PERCENT (BEAKER) 0 % 0-1 (test tven=4414) CALCIUM, [id number] 05:35:00 Test Item Value Reference Range Comments CALCIUM IONIZED (BEAKER) (test axdp=147) 0.99 mmol/L 1.12-1.27 PH, BLOOD (BEAKER) (test qlgy=0233) 7.50 POCT-GLUCOSE [id number] 22:12:00 Test Item Value Reference Range Comments POC-GLUCOSE METER (BEAKER) 246 mg/dL 70-110 TESTED AT [address] (test yiqd=5153) [facility] [address] POCT-GLUCOSE [id number] 17:11:00 Test Item Value Reference Range Comments POC-GLUCOSE METER (BEAKER) 201 mg/dL 70-110 TESTED AT [facility] [address] [facility] (test llmh=4521) [facility] [address] POCT-GLUCOSE [id number] 13:24:00 Test Item Value Reference Range Comments POC-GLUCOSE METER (BEAKER) 173 mg/dL 70-110 TESTED AT [place] [id number] [facility] (test lwac=2752) [facility] [address] COMPREHENSIVE METABOLIC [id number] 09:06:00 Test Item Value Reference Range Comments TOTAL PROTEIN (BEAKER) 5.8 gm/dL 6.0-8.3 (test fxtr=701) ALBUMIN (BEAKER) (test 3.2 g/dL 3.5-5.0 iwzo=0778) ALKALINE PHOSPHATASE 125 U/L 40-150 (BEAKER) (test loua=051) BILIRUBIN TOTAL (BEAKER) 1.6 mg/dL 0.2-1.2 (test ypno=662) SODIUM (BEAKER) (test 140 meq/L 136-145 dxyu=748) POTASSIUM (BEAKER) (test 3.4 meq/L 3.5-5.1 ntmz=680) CHLORIDE (BEAKER) (test 100 meq/L 98-107 ohvh=392) CO2 (BEAKER) (test 31 meq/L 22-29 wwri=618) BLOOD UREA NITROGEN 21 mg/dL 7-21 (BEAKER) (test crpe=612) CREATININE (BEAKER) (test 1.57 mg/dL 0.57-1.25 ojzr=173) GLUCOSE RANDOM (BEAKER) 138 mg/dL 70-105 (test ekel=720) CALCIUM (BEAKER) (test 8.9 mg/dL 8.4-10.2 ceaa=076) AST (SGOT) (BEAKER) (test 33 U/L 5-34 odnf=248) ALT (SGPT) (BEAKER) (test 13 U/L 6-55 weix=289) EGFR (BEAKER) (test 33 mL/min/1.73 sq m ESTIMATED GFR IS NOT qmmy=9311) ACCURATE CREATININE CLEARANCE IN PREDICTING GLOMERULAR FILTRATION RATE. ESTIMATED GFR IS NOT APPLICABLE FOR DIALYSIS PATIENTS. Specimen slightly ictericPOCT-GLUCOSE [id number] 07:53:00 Test Item Value Reference Range Comments POC-GLUCOSE METER (BEAKER) 157 mg/dL 70-110 TESTED AT [address] (test jyrk=0085) [facility] [address] CBC (HEMOGRAM ONLY)2019-05-31 06:33:00 Test Item Value Reference Range Comments WHITE BLOOD CELL COUNT (BEAKER) (test ykkt=053) 5.7 K/ L 3.5-10.5 RED BLOOD CELL COUNT (BEAKER) (test afcr=237) 3.25 M/ L 3.93-5.22 HEMOGLOBIN (BEAKER) (test ftqx=193) 8.9 GM/DL 11.2-15.7 HEMATOCRIT (BEAKER) (test xdnu=725) 28.3 % 34.1-44.9 MEAN CORPUSCULAR VOLUME (BEAKER) (test wmrx=253) 87.1 fL 79.4-94.8 MEAN CORPUSCULAR HEMOGLOBIN (BEAKER) (test 27.4 pg 25.6-32.2 glog=368) MEAN CORPUSCULAR HEMOGLOBIN CONC (BEAKER) (test 31.4 GM/DL 32.2-35.5 xrzl=886) RED CELL DISTRIBUTION WIDTH (BEAKER) (test 17.5 % 11.7-14.4 ehsu=426) PLATELET COUNT (BEAKER) (test nwin=384) 188 K/CU MM 150-450 MEAN PLATELET VOLUME (BEAKER) (test swry=906) 9.1 fL 9.4-12.3 NUCLEATED RED BLOOD CELLS (BEAKER) (test 0 /100 WBC 0-0 twpx=268) POCT-GLUCOSE [id number] 22:28:00 Test Item Value Reference Range Comments POC-GLUCOSE METER (BEAKER) 193 mg/dL 70-110 TESTED AT [address] (test wurg=4757) [facility] [address] POCT-GLUCOSE [id number] 17:19:00 Test Item Value Reference Range Comments POC-GLUCOSE METER (BEAKER) 155 mg/dL 70-110 TESTED AT [address] (test dook=1233) [facility] [address] POCT-GLUCOSE [id number] 12:44:00 Test Item Value Reference Range Comments POC-GLUCOSE METER (BEAKER) 189 mg/dL 70-110 TESTED AT [facility] [address] [facility] (test iptz=9540) [facility] [address] POCT-GLUCOSE [id number] 08:30:00 Test Item Value Reference Range Comments POC-GLUCOSE METER (BEAKER) 140 mg/dL 70-110 TESTED AT [facility] [address] [facility] (test igyr=5499) [facility] [address] [id number] 05:15:00 Test Item Value Reference Range Comments THYROID STIMULATING HORMONE (BEAKER) (test 6.32 uIU/mL 0.35-4.94 syfi=863) T4, [id number] 05:11:00 Test Item Value Reference Range Comments FREE T4 (BEAKER) (test knei=522) 1.70 ng/dL 0.70-1.48 [id number] 04:53:00 Test Item Value Reference Range Comments PHOSPHORUS (BEAKER) (test tezb=444) 2.4 mg/dL 2.3-4.7 [id number] 04:53:00 Test Item Value Reference Range Comments MAGNESIUM (BEAKER) (test mbhd=566) 1.8 mg/dL 1.6-2.6 COMPREHENSIVE METABOLIC [id number] 04:53:00 Test Item Value Reference Range Comments TOTAL PROTEIN (BEAKER) 5.1 gm/dL 6.0-8.3 (test znuj=816) ALBUMIN (BEAKER) (test 2.9 g/dL 3.5-5.0 uozz=8754) ALKALINE PHOSPHATASE 101 U/L 40-150 (BEAKER) (test xcib=665) BILIRUBIN TOTAL (BEAKER) 1.6 mg/dL 0.2-1.2 (test lyau=474) SODIUM (BEAKER) (test 137 meq/L 136-145 vibs=063) POTASSIUM (BEAKER) (test 3.7 meq/L 3.5-5.1 vrye=664) CHLORIDE (BEAKER) (test 99 meq/L 98-107 jqls=960) CO2 (BEAKER) (test 32 meq/L 22-29 ssom=322) BLOOD UREA NITROGEN 20 mg/dL 7-21 (BEAKER) (test ufiz=752) CREATININE (BEAKER) (test 1.55 mg/dL 0.57-1.25 etta=982) GLUCOSE RANDOM (BEAKER) 157 mg/dL 70-105 (test kwfe=731) CALCIUM (BEAKER) (test 8.3 mg/dL 8.4-10.2 azxi=852) AST (SGOT) (BEAKER) (test 33 U/L 5-34 ybpb=586) ALT (SGPT) (BEAKER) (test 12 U/L 6-55 ebkr=550) EGFR (BEAKER) (test 34 mL/min/1.73 sq m ESTIMATED GFR IS NOT nomt=3097) ACCURATE CREATININE CLEARANCE IN PREDICTING GLOMERULAR FILTRATION RATE. ESTIMATED GFR IS NOT APPLICABLE FOR DIALYSIS PATIENTS. CBC (HEMOGRAM ONLY)2019-05-30 04:13:00 Test Item Value Reference Range Comments WHITE BLOOD CELL COUNT (BEAKER) (test kqbr=477) 5.3 K/ L 3.5-10.5 RED BLOOD CELL COUNT (BEAKER) (test tfgg=821) 2.75 M/ L 3.93-5.22 HEMOGLOBIN (BEAKER) (test plxt=635) 7.6 GM/DL 11.2-15.7 HEMATOCRIT (BEAKER) (test vzba=819) 24.2 % 34.1-44.9 MEAN CORPUSCULAR VOLUME (BEAKER) (test vlbn=994) 88.0 fL 79.4-94.8 MEAN CORPUSCULAR HEMOGLOBIN (BEAKER) (test 27.6 pg 25.6-32.2 ujot=215) MEAN CORPUSCULAR HEMOGLOBIN CONC (BEAKER) (test 31.4 GM/DL 32.2-35.5 jmtp=501) RED CELL DISTRIBUTION WIDTH (BEAKER) (test 17.4 % 11.7-14.4 zehn=391) PLATELET COUNT (BEAKER) (test seba=339) 162 K/CU MM 150-450 MEAN PLATELET VOLUME (BEAKER) (test abth=986) 9.2 fL 9.4-12.3 NUCLEATED RED BLOOD CELLS (BEAKER) (test 0 /100 WBC 0-0 amjy=759) CALCIUM, [id number] 04:13:00 Test Item Value Reference Range Comments CALCIUM IONIZED (BEAKER) (test tvme=217) 0.98 mmol/L 1.12-1.27 PH, BLOOD (BEAKER) (test rvyc=3504) 7.58 RAD, CHEST, 2 [id number] 23:47:00Reason for exam:->opacitiesFINAL REPORT Portable chest. HISTORY: [...] MDReport Verified Date/Time: 05/29/2019 23:47:08 Reading Location: [address] Consult Reading Room POCT-GLUCOSE [id number] 23:12:00 Test Item Value Reference Range Comments POC-GLUCOSE METER (BEAKER) 192 mg/dL 70-110 TESTED AT [address] (test ssxn=4813) [facility] [address] URINALYSIS W/ [id number] 18:14:00 Test Item Value Reference Range Comments COLOR (BEAKER) (test yezj=726) Yellow CLARITY (BEAKER) (test vnkz=239) Clear SPECIFIC GRAVITY UA (BEAKER) (test 1.011 1.001-1.035 bclc=545) PH UA (BEAKER) (test thfu=195) 8.5 5.0-8.0 PROTEIN UA (BEAKER) (test pduh=688) 20 mg/dL Negative GLUCOSE UA (BEAKER) (test trba=547) Negative Negative KETONES UA (BEAKER) (test ityv=229) Negative Negative BILIRUBIN UA (BEAKER) (test slvr=817) Negative Negative BLOOD UA (BEAKER) (test kivi=224) Negative Negative NITRITE UA (BEAKER) (test kkhq=360) Negative Negative LEUKOCYTE ESTERASE UA (BEAKER) (test Negative Negative wokr=654) UROBILINOGEN UA (BEAKER) (test qwtv=701) 12.0 mg/dL 0.2-1.0 RBC UA (BEAKER) (test vmkp=939) < /HPF WBC UA (BEAKER) (test owpf=874) 1 /HPF BACTERIA (BEAKER) (test wbgp=434) Rare SQUAMOUS EPITHELIAL (BEAKER) (test 3 /HPF puar=114) SOURCE(BEAKER) (test iglo=3771) Urine, Clean Catch POCT-GLUCOSE [id number] 16:55:00 Test Item Value Reference Range Comments POC-GLUCOSE METER (BEAKER) 186 mg/dL 70-110 TESTED AT [address] (test ixch=1164) [facility] [address] TISSUE [id number] 15:15:00Surgical Pathology Report Case: [id number] Authorizing Provider: Shannen Giron MD Collected: 05/28/2019 1448 Ordering Location: [address] Received: 05/29/2019 0915 Service Pathologist: Padilla Reed MD Specimen: Polyp, Colon - Right/Ascending, taken by doug pathak PART A RIGHT ASCENDING COLON POLYP, POLYPECTOMY:TUBULAR ADENOMA. Signing Pathologist Direct Phone Line: [phone] signed by Padilla Reed MD on 05/29/2019 at 3:15 [id number] colonoscopyRight ascending colonReceived in formalin, labelled with the patients name, date of , and medical record number and labelled "right ascending colon polyp" are three portions of silva tissue measuring 0.5 x 0.4 x 0.3 cm in aggregate. Submitted in toto in one cassette. Performed.BODY FLUID CULTURE + GRAM [id number] 12:56:00 Test Item Value Reference Range Comments CULTURE (BEAKER) (test cbop=4752) No growth GRAM STAIN RESULT (BEAKER) (test No WBCs jvfc=7119) GRAM STAIN RESULT (BEAKER) (test No organisms seen fgbs=87877) POCT-GLUCOSE [id number] 12:37:00 Test Item Value Reference Range Comments POC-GLUCOSE METER (BEAKER) 154 mg/dL 70-110 TESTED AT [address] (test oomt=7279) [place] [id number] POCT-GLUCOSE [id number] 09:12:00 Test Item Value Reference Range Comments POC-GLUCOSE METER (BEAKER) 76 mg/dL 70-110 TESTED AT [address] (test bwbj=7877) [facility] [address] COMPREHENSIVE METABOLIC [id number] 08:19:00 Test Item Value Reference Range Comments TOTAL PROTEIN (BEAKER) 4.9 gm/dL 6.0-8.3 (test ohje=240) ALBUMIN (BEAKER) (test 3.0 g/dL 3.5-5.0 sgpu=0808) ALKALINE PHOSPHATASE 88 U/L 40-150 (BEAKER) (test msub=069) BILIRUBIN TOTAL (BEAKER) 1.9 mg/dL 0.2-1.2 (test znpn=583) SODIUM (BEAKER) (test 141 meq/L 136-145 afik=956) POTASSIUM (BEAKER) (test 3.5 meq/L 3.5-5.1 nuka=835) CHLORIDE (BEAKER) (test 100 meq/L 98-107 phre=560) CO2 (BEAKER) (test 34 meq/L 22-29 uret=775) BLOOD UREA NITROGEN 18 mg/dL 7-21 (BEAKER) (test cjvk=476) CREATININE (BEAKER) (test 1.50 mg/dL 0.57-1.25 stcx=948) GLUCOSE RANDOM (BEAKER) 92 mg/dL 70-105 (test bpgd=958) CALCIUM (BEAKER) (test 8.5 mg/dL 8.4-10.2 tpbu=255) AST (SGOT) (BEAKER) (test 27 U/L 5-34 hlgs=775) ALT (SGPT) (BEAKER) (test 10 U/L 6-55 lbxv=730) EGFR (BEAKER) (test 35 mL/min/1.73 sq m ESTIMATED GFR IS NOT bvgn=2937) ACCURATE CREATININE CLEARANCE IN PREDICTING GLOMERULAR FILTRATION RATE. ESTIMATED GFR IS NOT APPLICABLE FOR DIALYSIS PATIENTS. Specimen slightly [id number] 08:18:00 Test Item Value Reference Range Comments PHOSPHORUS (BEAKER) (test bwvq=090) 2.8 mg/dL 2.3-4.7 [id number] 08:18:00 Test Item Value Reference Range Comments MAGNESIUM (BEAKER) (test ltbt=181) 2.0 mg/dL 1.6-2.6 CBC W/PLT COUNT & AUTO [id number] 05:59:00 Test Item Value Reference Range Comments WHITE BLOOD CELL COUNT (BEAKER) (test gpxy=329) 5.3 K/ L 3.5-10.5 RED BLOOD CELL COUNT (BEAKER) (test hglc=591) 2.79 M/ L 3.93-5.22 HEMOGLOBIN (BEAKER) (test zcuj=666) 7.7 GM/DL 11.2-15.7 HEMATOCRIT (BEAKER) (test yhes=247) 24.8 % 34.1-44.9 MEAN CORPUSCULAR VOLUME (BEAKER) (test gamt=229) 88.9 fL 79.4-94.8 MEAN CORPUSCULAR HEMOGLOBIN (BEAKER) (test 27.6 pg 25.6-32.2 pluu=457) MEAN CORPUSCULAR HEMOGLOBIN CONC (BEAKER) (test 31.0 GM/DL 32.2-35.5 excc=640) RED CELL DISTRIBUTION WIDTH (BEAKER) (test 17.6 % 11.7-14.4 mbna=471) PLATELET COUNT (BEAKER) (test zqxs=836) 146 K/CU MM 150-450 MEAN PLATELET VOLUME (BEAKER) (test mwww=979) 9.6 fL 9.4-12.3 NUCLEATED RED BLOOD CELLS (BEAKER) (test 0 /100 WBC 0-0 ravo=624) NEUTROPHILS RELATIVE PERCENT (BEAKER) (test 46 % cwxk=791) LYMPHOCYTES RELATIVE PERCENT (BEAKER) (test 31 % unxg=131) MONOCYTES RELATIVE PERCENT (BEAKER) (test 11 % menh=608) EOSINOPHILS RELATIVE PERCENT (BEAKER) (test 10 % vrez=242) BASOPHILS RELATIVE PERCENT (BEAKER) (test 2 % daxu=571) NEUTROPHILS ABSOLUTE COUNT (BEAKER) (test 2.46 K/ L 1.56-6.13 njaj=198) LYMPHOCYTES ABSOLUTE COUNT (BEAKER) (test 1.66 K/ L 1.18-3.74 htdn=485) MONOCYTES ABSOLUTE COUNT (BEAKER) (test 0.57 K/ L 0.24-0.36 mksk=969) EOSINOPHILS ABSOLUTE COUNT (BEAKER) (test 0.52 K/ L 0.04-0.36 vwhd=304) BASOPHILS ABSOLUTE COUNT (BEAKER) (test 0.08 K/ L 0.01-0.08 terl=993) IMMATURE GRANULOCYTES-RELATIVE PERCENT (BEAKER) 0 % 0-1 (test ffjn=2166) CALCIUM, [id number] 05:04:00 Test Item Value Reference Range Comments CALCIUM IONIZED (BEAKER) (test olpv=035) 1.02 mmol/L 1.12-1.27 PH, BLOOD (BEAKER) (test mwkj=6191) 7.50 POCT-GLUCOSE [id number] 21:27:00 Test Item Value Reference Range Comments POC-GLUCOSE METER (BEAKER) 139 mg/dL 70-110 TESTED AT [address] (test uuej=2886) [place] [address] BASIC METABOLIC [id number] 18:28:00 Test Item Value Reference Range Comments SODIUM (BEAKER) (test 142 meq/L 136-145 cbuq=922) POTASSIUM (BEAKER) (test 3.5 meq/L 3.5-5.1 ocxv=605) CHLORIDE (BEAKER) (test 99 meq/L 98-107 flvd=121) CO2 (BEAKER) (test 37 meq/L 22-29 ehkz=607) BLOOD UREA NITROGEN 17 mg/dL 7-21 (BEAKER) (test jbhc=253) CREATININE (BEAKER) (test 1.38 mg/dL 0.57-1.25 geez=601) GLUCOSE RANDOM (BEAKER) 78 mg/dL 70-105 (test dovk=529) CALCIUM (BEAKER) (test 8.5 mg/dL 8.4-10.2 zsaa=450) EGFR (BEAKER) (test 39 mL/min/1.73 sq m ESTIMATED GFR IS NOT hgee=9188) ACCURATE CREATININE CLEARANCE IN PREDICTING GLOMERULAR FILTRATION RATE. ESTIMATED GFR IS NOT APPLICABLE FOR DIALYSIS PATIENTS. Call [id number] with resultsSpecimen slightly ictericPOCT-GLUCOSE [id number] 18:10:00 Test Item Value Reference Range Comments POC-GLUCOSE METER (BEAKER) 82 mg/dL 70-110 TESTED AT [address] (test khse=4918) [place] [id number] CBC W/PLT COUNT & AUTO [id number] 11:56:00 Test Item Value Reference Range Comments WHITE BLOOD CELL COUNT (BEAKER) (test wcsj=791) 5.0 K/ L 3.5-10.5 RED BLOOD CELL COUNT (BEAKER) (test watf=366) 2.82 M/ L 3.93-5.22 HEMOGLOBIN (BEAKER) (test mhxa=751) 7.9 GM/DL 11.2-15.7 HEMATOCRIT (BEAKER) (test wjqh=176) 25.0 % 34.1-44.9 MEAN CORPUSCULAR VOLUME (BEAKER) (test qcac=561) 88.7 fL 79.4-94.8 MEAN CORPUSCULAR HEMOGLOBIN (BEAKER) (test 28.0 pg 25.6-32.2 fmgc=393) MEAN CORPUSCULAR HEMOGLOBIN CONC (BEAKER) (test 31.6 GM/DL 32.2-35.5 txlc=508) RED CELL DISTRIBUTION WIDTH (BEAKER) (test 17.6 % 11.7-14.4 tdso=851) PLATELET COUNT (BEAKER) (test mtsf=073) 155 K/CU MM 150-450 MEAN PLATELET VOLUME (BEAKER) (test zeeb=194) 9.5 fL 9.4-12.3 NUCLEATED RED BLOOD CELLS (BEAKER) (test 0 /100 WBC 0-0 fmkn=170) (CELLAVISION MANUAL DIFF)2019-05-28 11:56:00 Test Item Value Reference Range Comments NEUTROPHILS - REL (CELLAVISION)(BEAKER) (test 69 % bodc=3350) LYMPHOCYTES - REL (CELLAVISION)(BEAKER) (test 21 % fctw=9000) MONOCYTES - REL (CELLAVISION)(BEAKER) (test 3 % eogt=0553) EOSINOPHILS - REL (CELLAVISION)(BEAKER) (test 5 % wpkv=4191) BASOPHILS - REL (CELLAVISION)(BEAKER) (test 1 % gxej=5150) MYELOCYTES - REL (CELLAVISION)(BEAKER) (test 1 % 0-0 wljc=0935) NEUTROPHILS - ABS (CELLAVISION)(BEAKER) (test 3.45 K/ul 1.56-6.13 khmz=2291) LYMPHOCYTES - ABS (CELLAVISION)(BEAKER) (test 1.05 K/ul 1.18-3.74 dfmj=8987) MONOCYTES - ABS (CELLAVISION)(BEAKER) (test 0.15 K/uL 0.24-0.36 bfqe=5644) EOSINOPHILS - ABS (CELLAVISION)(BEAKER) (test 0.25 K/uL 0.04-0.36 wlvf=6300) BASOPHILS - ABS (CELLAVISION)(BEAKER) (test 0.05 K/uL 0.01-0.08 wkoi=7748) MYELOCYTES-ABS (CELLAVISION)(BEAKER) (test 0.05 K/uL 0.00-0.00 rjka=7610) TOTAL COUNTED (BEAKER) (test hmjk=2825) 100 PLT MORPHOLOGY (BEAKER) (test jvvx=878) Normal SMUDGE CELLS (BEAKER) (test cyhe=7575) Present POLYCHROMATOPHILLIC RBCS(BEAKER) (test njxg=515) 1+ few ANISOCYTOSIS (BEAKER) (test dqgh=692) 2+ moderate MICROCYTES (BEAKER) (test thxo=577) 2+ moderate POIKILOCYTES (BEAKER) (test nttm=940) 1+ few SPHEROCYTES (BEAKER) (test frqy=511) 1+ few PLATELET CONCENTRATION (CELLAVISION)(BEAKER) Adequate (test fllk=3623) Received comment: User comments: Slide comments:POCT-GLUCOSE [id number] 10: 05:00 Test Item Value Reference Range Comments POC-GLUCOSE METER (BEAKER) 82 mg/dL 70-110 TESTED AT [address] (test vmzj=4220) [facility] [address] POCT-GLUCOSE [id number] 09:07:00 Test Item Value Reference Range Comments POC-GLUCOSE METER (BEAKER) 84 mg/dL 70-110 TESTED AT [address] (test amfd=2711) [facility] [address] [id number] 06:31:00 Test Item Value Reference Range Comments PHOSPHORUS (BEAKER) (test gzkn=146) 2.5 mg/dL 2.3-4.7 [id number] 06:31:00 Test Item Value Reference Range Comments MAGNESIUM (BEAKER) (test hidk=246) 1.7 mg/dL 1.6-2.6 COMPREHENSIVE METABOLIC [id number] 06:31:00 Test Item Value Reference Range Comments TOTAL PROTEIN (BEAKER) 4.9 gm/dL 6.0-8.3 (test elzz=981) ALBUMIN (BEAKER) (test 3.1 g/dL 3.5-5.0 cetq=7249) ALKALINE PHOSPHATASE 82 U/L 40-150 (BEAKER) (test ojju=284) BILIRUBIN TOTAL (BEAKER) 2.3 mg/dL 0.2-1.2 (test rbzt=361) SODIUM (BEAKER) (test 143 meq/L 136-145 apek=625) POTASSIUM (BEAKER) (test 3.5 meq/L 3.5-5.1 yfsg=437) CHLORIDE (BEAKER) (test 100 meq/L 98-107 lqvp=563) CO2 (BEAKER) (test 37 meq/L 22-29 ndit=422) BLOOD UREA NITROGEN 16 mg/dL 7-21 (BEAKER) (test omwt=939) CREATININE (BEAKER) (test 1.37 mg/dL 0.57-1.25 uxfu=387) GLUCOSE RANDOM (BEAKER) 96 mg/dL 70-105 (test kpnw=664) CALCIUM (BEAKER) (test 8.6 mg/dL 8.4-10.2 bdox=058) AST (SGOT) (BEAKER) (test 30 U/L 5-34 rasn=102) ALT (SGPT) (BEAKER) (test 10 U/L 6-55 pbxg=131) EGFR (BEAKER) (test 39 mL/min/1.73 sq m ESTIMATED GFR IS NOT xrdk=1113) ACCURATE CREATININE CLEARANCE IN PREDICTING GLOMERULAR FILTRATION RATE. ESTIMATED GFR IS NOT APPLICABLE FOR DIALYSIS PATIENTS. Specimen slightly ictericB-TYPE NATRIURETIC FACTOR (BNP)2019-05-28 06:19:00 Test Item Value Reference Range Comments B-TYPE NATRIURETIC PEPTIDE (BEAKER) (test 381 pg/mL 0-100 sqxr=484) CALCIUM, [id number] 05:25:00 Test Item Value Reference Range Comments CALCIUM IONIZED (BEAKER) (test onra=628) 1.03 mmol/L 1.12-1.27 PH, BLOOD (BEAKER) (test fwuz=7432) 7.49 POCT-GLUCOSE [id number] 22:42:00 Test Item Value Reference Range Comments POC-GLUCOSE METER (BEAKER) 174 mg/dL 70-110 TESTED AT [address] (test zzws=6884) [facility] [address] [id number] 17:57:00 Test Item Value Reference Range Comments SODIUM (BEAKER) (test nziq=403) 140 meq/L 136-145 POTASSIUM (BEAKER) (test 3.9 meq/L 3.5-5.1 Specimen slightly hemolyzed tikd=151) CHLORIDE (BEAKER) (test 99 meq/L 98-107 xphw=063) CO2 (BEAKER) (test ysgh=446) 35 meq/L 22-29 Call [id number] 17:50:00 Test Item Value Reference Range Comments POC-GLUCOSE METER (BEAKER) 151 mg/dL 70-110 TESTED AT [address] (test pggr=4652) [place] [id number] POCT-GLUCOSE [id number] 12:36:00 Test Item Value Reference Range Comments POC-GLUCOSE METER (BEAKER) 123 mg/dL 70-110 TESTED AT [address] (test brhp=8542) [place] [id number] POCT-GLUCOSE [id number] 08:15:00 Test Item Value Reference Range Comments POC-GLUCOSE METER (BEAKER) 121 mg/dL 70-110 TESTED AT [address] (test ksyk=7482) [place] [id number] [id number] 07:00:00 Test Item Value Reference Range Comments PHOSPHORUS (BEAKER) (test psfj=996) 1.9 mg/dL 2.3-4.7 [id number] 07:00:00 Test Item Value Reference Range Comments MAGNESIUM (BEAKER) (test kgdm=630) 1.6 mg/dL 1.6-2.6 COMPREHENSIVE METABOLIC [id number] 07:00:00 Test Item Value Reference Range Comments TOTAL PROTEIN (BEAKER) 4.9 gm/dL 6.0-8.3 (test apvm=354) ALBUMIN (BEAKER) (test 3.1 g/dL 3.5-5.0 iwdz=8069) ALKALINE PHOSPHATASE 75 U/L 40-150 (BEAKER) (test hhsf=638) BILIRUBIN TOTAL (BEAKER) 1.9 mg/dL 0.2-1.2 (test vwwl=281) SODIUM (BEAKER) (test 139 meq/L 136-145 bvqu=272) POTASSIUM (BEAKER) (test 4.3 meq/L 3.5-5.1 uvdc=095) CHLORIDE (BEAKER) (test 99 meq/L 98-107 hxzq=432) CO2 (BEAKER) (test 37 meq/L 22-29 gnjo=365) BLOOD UREA NITROGEN 16 mg/dL 7-21 (BEAKER) (test cmgo=161) CREATININE (BEAKER) (test 1.29 mg/dL 0.57-1.25 lvrr=896) GLUCOSE RANDOM (BEAKER) 139 mg/dL 70-105 (test obub=937) CALCIUM (BEAKER) (test 8.5 mg/dL 8.4-10.2 hqal=504) AST (SGOT) (BEAKER) (test 23 U/L 5-34 najj=156) ALT (SGPT) (BEAKER) (test 8 U/L 6-55 wkzu=644) EGFR (BEAKER) (test 42 mL/min/1.73 sq m ESTIMATED GFR IS NOT wdwm=7626) ACCURATE CREATININE CLEARANCE IN PREDICTING GLOMERULAR FILTRATION RATE. ESTIMATED GFR IS NOT APPLICABLE FOR DIALYSIS PATIENTS. Specimen slightly ictericCBC W/PLT COUNT & AUTO [id number] 06:20 :00 Test Item Value Reference Range Comments WHITE BLOOD CELL COUNT (BEAKER) (test iljq=768) 4.7 K/ L 3.5-10.5 RED BLOOD CELL COUNT (BEAKER) (test uosr=521) 2.71 M/ L 3.93-5.22 HEMOGLOBIN (BEAKER) (test waje=582) 7.5 GM/DL 11.2-15.7 HEMATOCRIT (BEAKER) (test vvsz=837) 23.9 % 34.1-44.9 MEAN CORPUSCULAR VOLUME (BEAKER) (test nouf=730) 88.2 fL 79.4-94.8 MEAN CORPUSCULAR HEMOGLOBIN (BEAKER) (test 27.7 pg 25.6-32.2 ywwy=865) MEAN CORPUSCULAR HEMOGLOBIN CONC (BEAKER) (test 31.4 GM/DL 32.2-35.5 fmea=581) RED CELL DISTRIBUTION WIDTH (BEAKER) (test 17.6 % 11.7-14.4 hzqv=518) PLATELET COUNT (BEAKER) (test hwlp=197) 137 K/CU MM 150-450 MEAN PLATELET VOLUME (BEAKER) (test vizo=292) 9.6 fL 9.4-12.3 NUCLEATED RED BLOOD CELLS (BEAKER) (test 0 /100 WBC 0-0 zhft=011) NEUTROPHILS RELATIVE PERCENT (BEAKER) (test 45 % qgbl=933) LYMPHOCYTES RELATIVE PERCENT (BEAKER) (test 33 % khrz=701) MONOCYTES RELATIVE PERCENT (BEAKER) (test 12 % fvku=830) EOSINOPHILS RELATIVE PERCENT (BEAKER) (test 9 % upit=114) BASOPHILS RELATIVE PERCENT (BEAKER) (test 1 % olmr=652) NEUTROPHILS ABSOLUTE COUNT (BEAKER) (test 2.13 K/ L 1.56-6.13 jjze=065) LYMPHOCYTES ABSOLUTE COUNT (BEAKER) (test 1.56 K/ L 1.18-3.74 wnze=108) MONOCYTES ABSOLUTE COUNT (BEAKER) (test 0.57 K/ L 0.24-0.36 qpro=657) EOSINOPHILS ABSOLUTE COUNT (BEAKER) (test 0.41 K/ L 0.04-0.36 osil=846) BASOPHILS ABSOLUTE COUNT (BEAKER) (test 0.05 K/ L 0.01-0.08 aqqa=510) IMMATURE GRANULOCYTES-RELATIVE PERCENT (BEAKER) 0 % 0-1 (test chow=7707) CALCIUM, [id number] 05:29:00 Test Item Value Reference Range Comments CALCIUM IONIZED (BEAKER) (test qena=194) 1.02 mmol/L 1.12-1.27 PH, BLOOD (BEAKER) (test dsvu=0147) 7.53 POCT-GLUCOSE [id number] 22:13:00 Test Item Value Reference Range Comments POC-GLUCOSE METER (BEAKER) 315 mg/dL 70-110 Notified ALEXI ENNIS/TESTED AT [facility] (test gdpb=0117) [address] [facility] [address] POCT-GLUCOSE [id number] 18:43:00 Test Item Value Reference Range Comments POC-GLUCOSE METER (BEAKER) 204 mg/dL 70-110 TESTED AT [address] (test zqlv=0168) [facility] [address] U/S, [id number] 17:14:00Reason for exam:->ascitesFINAL REPORT Ultrasound guided paracentesis. Clinical History: Ascites. Sedation: None. Operators: This procedure was performed by SARIKA Lee under direct supervision of Akil Chung M.D. Entry Level Sales Representative: None. Estimated Blood Loss: < 1 cc. [...] was achieved with 2% lidocaine, a 5 Mongolian one-step catheter was advanced into the peritoneal cavity under ultrasound guidance. After completion of drainage, the catheter was removed. There was no evidence of complication. Impression:Successful ultrasound guided paracentesis. Signed: Akil Chung MDReport Verified Date/Time: 05/26/2019 17:14:25 Reading Location : [address] Ultrasound Reading Room U/S, [id number] 17:12:00Reason for exam:->ascitesFINAL REPORT Ultrasound guided paracentesis Clinical History: Ascites. Sedation: None. Manager Marketing Sales: Micheline Pena PA-C Supervising Physician: Shravan Ruiz MD Entry Level Sales Representative: None. Estimated Blood Loss: < 1 mL. [...] anesthesia was achieved with lidocaine, a 5 Mongolian one-step catheter was advanced into theperitoneal cavity under ultrasound guidance. After completion of drainage, the catheter was removed.There was no evidence of complication. Impression:Successful ultrasound guided paracentesis. Signed:Shravan Ruiz Verified Date/Time: 05/26/2019 17:12:51 Reading Location: [address] Ultrasound Reading Room POCT-GLUCOSE [id number] 17:02: 00 Test Item Value Reference Range Comments POC-GLUCOSE METER (BEAKER) 204 mg/dL 70-110 TESTED AT [address] (test cipe=9001) [place] [address] POCT-GLUCOSE [id number] 13:52:00 Test Item Value Reference Range Comments POC-GLUCOSE METER (BEAKER) 185 mg/dL 70-110 TESTED AT [address] (test ligh=6155) [place] [address] BODY FLUID CELL COUNT WITH [id number] 13:12:00 Test Item Value Reference Range Comments APPEARANCE FLUID (BEAKER) (test jdfb=722) Slightly Hazy Clear COLOR FLUID (BEAKER) (test kynt=467) Yellow Colorless, Straw RBC FLUID (BEAKER) (test toqb=200) 3000 /cu mm <=1 ADJUSTED WBC FLUID (BEAKER) (test wvpt=6855) 107 /cu mm <=5 LINING CELLS (BEAKER) (test spnv=5470) 13 /cu mm <=1 NEUTROPHILS FLUID (BEAKER) (test jgct=2511) 0 % LYMPHS FLUID (BEAKER) (test ktmj=266) 21 % MONO/MACROPHAGE FLUID (BEAKER) (test 78 % toyc=136) EOSINOPHILS FLUID (BEAKER) (test dthi=127) 1 % BASO FLUID (BEAKER) (test tsgw=627) 0 % CONTAINER BODY FLUID (BEAKER) (test EDTA Tube lfbq=0806) POCT-GLUCOSE [id number] 08:40:00 Test Item Value Reference Range Comments POC-GLUCOSE METER (BEAKER) 113 mg/dL 70-110 TESTED AT [address] (test wqqj=6843) [place] [address] [id number] 07:18:00 Test Item Value Reference Range Comments T3 TOTAL (BEAKER) (test 34 ng/dL 48-159 Performed at [facility]. Refer. jatw=982) Range:76-181 [id number] 05:45:00 Test Item Value Reference Range Comments PHOSPHORUS (BEAKER) (test qefw=517) 1.7 mg/dL 2.3-4.7 [id number] 05:45:00 Test Item Value Reference Range Comments MAGNESIUM (BEAKER) (test mzoe=787) 1.8 mg/dL 1.6-2.6 COMPREHENSIVE METABOLIC [id number] 05:45:00 Test Item Value Reference Range Comments TOTAL PROTEIN (BEAKER) 5.1 gm/dL 6.0-8.3 (test nleb=971) ALBUMIN (BEAKER) (test 3.1 g/dL 3.5-5.0 jdav=9213) ALKALINE PHOSPHATASE 88 U/L 40-150 (BEAKER) (test lktf=924) BILIRUBIN TOTAL (BEAKER) 1.6 mg/dL 0.2-1.2 (test ohzq=097) SODIUM (BEAKER) (test 140 meq/L 136-145 xjka=297) POTASSIUM (BEAKER) (test 3.8 meq/L 3.5-5.1 gaiy=470) CHLORIDE (BEAKER) (test 100 meq/L 98-107 fbqb=682) CO2 (BEAKER) (test 36 meq/L 22-29 fsvv=137) BLOOD UREA NITROGEN 16 mg/dL 7-21 (BEAKER) (test amyg=661) CREATININE (BEAKER) (test 1.37 mg/dL 0.57-1.25 jmze=300) GLUCOSE RANDOM (BEAKER) 159 mg/dL 70-105 (test subz=233) CALCIUM (BEAKER) (test 8.4 mg/dL 8.4-10.2 gums=632) AST (SGOT) (BEAKER) (test 26 U/L 5-34 kxwt=689) ALT (SGPT) (BEAKER) (test 10 U/L 6-55 nlpy=125) EGFR (BEAKER) (test 39 mL/min/1.73 sq m ESTIMATED GFR IS NOT kamb=2747) ACCURATE CREATININE CLEARANCE IN PREDICTING GLOMERULAR FILTRATION RATE. ESTIMATED GFR IS NOT APPLICABLE FOR DIALYSIS PATIENTS. CALCIUM, [id number] 05:11:00 Test Item Value Reference Range Comments CALCIUM IONIZED (BEAKER) (test lggz=951) 0.99 mmol/L 1.12-1.27 PH, BLOOD (BEAKER) (test zybp=9935) 7.57 CBC W/PLT COUNT & AUTO [id number] 05:04:00 Test Item Value Reference Range Comments WHITE BLOOD CELL COUNT (BEAKER) (test regm=439) 4.6 K/ L 3.5-10.5 RED BLOOD CELL COUNT (BEAKER) (test lhny=905) 2.81 M/ L 3.93-5.22 HEMOGLOBIN (BEAKER) (test ifml=377) 7.8 GM/DL 11.2-15.7 HEMATOCRIT (BEAKER) (test urle=685) 24.6 % 34.1-44.9 MEAN CORPUSCULAR VOLUME (BEAKER) (test xmrv=184) 87.5 fL 79.4-94.8 MEAN CORPUSCULAR HEMOGLOBIN (BEAKER) (test 27.8 pg 25.6-32.2 ocum=977) MEAN CORPUSCULAR HEMOGLOBIN CONC (BEAKER) (test 31.7 GM/DL 32.2-35.5 gsqm=642) RED CELL DISTRIBUTION WIDTH (BEAKER) (test 17.2 % 11.7-14.4 nafz=154) PLATELET COUNT (BEAKER) (test girs=373) 129 K/CU MM 150-450 MEAN PLATELET VOLUME (BEAKER) (test yjty=796) 9.0 fL 9.4-12.3 NUCLEATED RED BLOOD CELLS (BEAKER) (test 0 /100 WBC 0-0 llau=386) NEUTROPHILS RELATIVE PERCENT (BEAKER) (test 47 % uzpo=076) LYMPHOCYTES RELATIVE PERCENT (BEAKER) (test 29 % kgcx=014) MONOCYTES RELATIVE PERCENT (BEAKER) (test 13 % npew=938) EOSINOPHILS RELATIVE PERCENT (BEAKER) (test 11 % kvvt=539) BASOPHILS RELATIVE PERCENT (BEAKER) (test 1 % hbxs=203) NEUTROPHILS ABSOLUTE COUNT (BEAKER) (test 2.17 K/ L 1.56-6.13 tkmg=453) LYMPHOCYTES ABSOLUTE COUNT (BEAKER) (test 1.32 K/ L 1.18-3.74 stkm=864) MONOCYTES ABSOLUTE COUNT (BEAKER) (test 0.58 K/ L 0.24-0.36 qhrx=090) EOSINOPHILS ABSOLUTE COUNT (BEAKER) (test 0.49 K/ L 0.04-0.36 angb=384) BASOPHILS ABSOLUTE COUNT (BEAKER) (test 0.06 K/ L 0.01-0.08 zlcq=259) IMMATURE GRANULOCYTES-RELATIVE PERCENT (BEAKER) 0 % 0-1 (test egzz=4053) POCT-GLUCOSE [id number] 23:10:00 Test Item Value Reference Range Comments POC-GLUCOSE METER (BEAKER) 239 mg/dL 70-110 TESTED AT [address] (test btww=3145) [place] [address] [id number] 19:02:00 Test Item Value Reference Range Comments SODIUM (BEAKER) (test czfd=133) 138 meq/L 136-145 POTASSIUM (BEAKER) (test jdpa=568) 3.7 meq/L 3.5-5.1 CHLORIDE (BEAKER) (test hzhd=071) 100 meq/L 98-107 CO2 (BEAKER) (test pquy=975) 31 meq/L 22-29 Call [id number] with resultsPOCT-GLUCOSE [id number] 16:50:00 Test Item Value Reference Range Comments POC-GLUCOSE METER (BEAKER) 203 mg/dL 70-110 TESTED AT [address] (test bblp=1396) [place] [address] POCT-GLUCOSE [id number] 12:49:00 Test Item Value Reference Range Comments POC-GLUCOSE METER (BEAKER) 219 mg/dL 70-110 TESTED AT [address] (test wyaa=0627) [place] [address] ANTI-NUCLEAR ANTIBODY (QUE)[id number] 10:03:00 Test Item Value Reference Range Comments ANTI-NUCLEAR ANTIBODY (QUE) (BEAKER) (test Negative Negative bzbk=410) Test performed by IFA method.Test performed by IFA method.POCT-GLUCOSE [id number] 08:54:00 Test Item Value Reference Range Comments POC-GLUCOSE METER (BEAKER) 125 mg/dL 70-110 TESTED AT [address] (test dwkb=5204) [place] [address] BASIC METABOLIC [id number] 07:41:00 Test Item Value Reference Range Comments SODIUM (BEAKER) (test 141 meq/L 136-145 xkcc=139) POTASSIUM (BEAKER) (test 3.0 meq/L 3.5-5.1 rcyn=031) CHLORIDE (BEAKER) (test 101 meq/L 98-107 dssk=196) CO2 (BEAKER) (test 35 meq/L 22-29 vuau=559) BLOOD UREA NITROGEN 16 mg/dL 7-21 (BEAKER) (test ljeb=664) CREATININE (BEAKER) (test 1.31 mg/dL 0.57-1.25 djtq=152) GLUCOSE RANDOM (BEAKER) 136 mg/dL 70-105 (test qaox=270) CALCIUM (BEAKER) (test 7.9 mg/dL 8.4-10.2 luof=026) EGFR (BEAKER) (test 41 mL/min/1.73 sq m ESTIMATED GFR IS NOT zrsl=3581) ACCURATE CREATININE CLEARANCE IN PREDICTING GLOMERULAR FILTRATION RATE. ESTIMATED GFR IS NOT APPLICABLE FOR DIALYSIS PATIENTS. [id number] 07:32:00 Test Item Value Reference Range Comments PHOSPHORUS (BEAKER) (test ggdu=309) 2.0 mg/dL 2.3-4.7 [id number] 07:32:00 Test Item Value Reference Range Comments MAGNESIUM (BEAKER) (test umei=285) 1.6 mg/dL 1.6-2.6 HEPATIC FUNCTION [id number] 07:32:00 Test Item Value Reference Range Comments TOTAL PROTEIN (BEAKER) (test yvnj=945) 4.9 gm/dL 6.0-8.3 ALBUMIN (BEAKER) (test loez=8053) 3.0 g/dL 3.5-5.0 BILIRUBIN TOTAL (BEAKER) (test rqja=209) 1.4 mg/dL 0.2-1.2 BILIRUBIN DIRECT (BEAKER) (test ohxj=084) 0.7 mg/dL 0.1-0.5 ALKALINE PHOSPHATASE (BEAKER) (test npha=808) 86 U/L 40-150 AST (SGOT) (BEAKER) (test pvvl=760) 25 U/L 5-34 ALT (SGPT) (BEAKER) (test wxom=192) 10 U/L 6-55 CBC W/PLT COUNT & AUTO [id number] 06:11:00 Test Item Value Reference Range Comments WHITE BLOOD CELL COUNT (BEAKER) (test asco=837) 4.2 K/ L 3.5-10.5 RED BLOOD CELL COUNT (BEAKER) (test jify=745) 2.68 M/ L 3.93-5.22 HEMOGLOBIN (BEAKER) (test bjnz=600) 7.4 GM/DL 11.2-15.7 HEMATOCRIT (BEAKER) (test oqkt=209) 23.5 % 34.1-44.9 MEAN CORPUSCULAR VOLUME (BEAKER) (test lplw=136) 87.7 fL 79.4-94.8 MEAN CORPUSCULAR HEMOGLOBIN (BEAKER) (test 27.6 pg 25.6-32.2 xxpj=489) MEAN CORPUSCULAR HEMOGLOBIN CONC (BEAKER) (test 31.5 GM/DL 32.2-35.5 edcv=089) RED CELL DISTRIBUTION WIDTH (BEAKER) (test 18.2 % 11.7-14.4 ewdk=940) PLATELET COUNT (BEAKER) (test sguy=153) 140 K/CU MM 150-450 MEAN PLATELET VOLUME (BEAKER) (test itxy=229) 10.3 fL 9.4-12.3 NUCLEATED RED BLOOD CELLS (BEAKER) (test 0 /100 WBC 0-0 jtte=087) NEUTROPHILS RELATIVE PERCENT (BEAKER) (test 44 % frdw=945) LYMPHOCYTES RELATIVE PERCENT (BEAKER) (test 33 % gavd=003) MONOCYTES RELATIVE PERCENT (BEAKER) (test 12 % ypwd=879) EOSINOPHILS RELATIVE PERCENT (BEAKER) (test 10 % fcls=117) BASOPHILS RELATIVE PERCENT (BEAKER) (test 2 % ntud=552) NEUTROPHILS ABSOLUTE COUNT (BEAKER) (test 1.82 K/ L 1.56-6.13 uywz=389) LYMPHOCYTES ABSOLUTE COUNT (BEAKER) (test 1.36 K/ L 1.18-3.74 zrjm=189) MONOCYTES ABSOLUTE COUNT (BEAKER) (test 0.48 K/ L 0.24-0.36 rona=751) EOSINOPHILS ABSOLUTE COUNT (BEAKER) (test 0.42 K/ L 0.04-0.36 hxjd=437) BASOPHILS ABSOLUTE COUNT (BEAKER) (test 0.07 K/ L 0.01-0.08 muhx=684) IMMATURE GRANULOCYTES-RELATIVE PERCENT (BEAKER) 0 % 0-1 (test rvxh=2125) PROTHROMBIN [id number] 05:31:00 Test Item Value Reference Range Comments PROTIME (BEAKER) (test dtjg=937) 14.8 seconds 11.9-14.2 INR (BEAKER) (test xnek=495) 1.2 <=5.9 Effective 04/01/2019: PT Reference Range ChangeNew: 11.9-14.2 Previous: 11.7- 14.7RECOMMENDED COUMADIN/WARFARIN INR THERAPY RANGESSTANDARD DOSE: 2.0-3.0 Includes: PROPHYLAXIS for venous thrombosis, systemic embolization; TREATMENT for venous thrombosis and/or pulmonary embolus.HIGH RISK: Target INR is2.5-3.5 for patients wiht mechanical heart valves.BLOOD [id number] 02:01:00 Test Item Value Reference Range Comments CULTURE (BEAKER) (test ucgi=0419) No growth in 5 days BLOOD [id number] 02:01:00 Test Item Value Reference Range Comments CULTURE (BEAKER) (test leux=8598) No growth in 5 days POCT-GLUCOSE [id number] 23:07:00 Test Item Value Reference Range Comments POC-GLUCOSE METER (BEAKER) 217 mg/dL 70-110 TESTED AT [address] (test abvo=9242) [place] [id number] POCT-GLUCOSE [id number] 17:54:00 Test Item Value Reference Range Comments POC-GLUCOSE METER (BEAKER) 138 mg/dL 70-110 TESTED AT [address] (test cwvy=1118) [place] [id number] POCT-GLUCOSE [id number] 12:22:00 Test Item Value Reference Range Comments POC-GLUCOSE METER (BEAKER) 114 mg/dL 70-110 TESTED AT [address] (test jwyd=3550) [place] [id number] POCT-GLUCOSE [id number] 07:39:00 Test Item Value Reference Range Comments POC-GLUCOSE METER (BEAKER) 124 mg/dL 70-110 TESTED AT [address] (test mxsy=9282) [place] [id number] HEPATIC FUNCTION [id number] 05:49:00 Test Item Value Reference Range Comments TOTAL PROTEIN (BEAKER) (test stlx=460) 5.1 gm/dL 6.0-8.3 ALBUMIN (BEAKER) (test gehx=3301) 2.9 g/dL 3.5-5.0 BILIRUBIN TOTAL (BEAKER) (test mebs=104) 1.3 mg/dL 0.2-1.2 BILIRUBIN DIRECT (BEAKER) (test lvnl=489) 0.7 mg/dL 0.1-0.5 ALKALINE PHOSPHATASE (BEAKER) (test kkjn=476) 91 U/L 40-150 AST (SGOT) (BEAKER) (test aamc=251) 30 U/L 5-34 ALT (SGPT) (BEAKER) (test jotw=447) 10 U/L 6-55 BASIC METABOLIC [id number] 05:49:00 Test Item Value Reference Range Comments SODIUM (BEAKER) (test 140 meq/L 136-145 icjj=063) POTASSIUM (BEAKER) (test 3.2 meq/L 3.5-5.1 xfas=132) CHLORIDE (BEAKER) (test 103 meq/L 98-107 yftx=856) CO2 (BEAKER) (test 27 meq/L 22-29 ecov=307) BLOOD UREA NITROGEN 17 mg/dL 7-21 (BEAKER) (test opbn=535) CREATININE (BEAKER) (test 1.30 mg/dL 0.57-1.25 vsiu=270) GLUCOSE RANDOM (BEAKER) 143 mg/dL 70-105 (test rmud=380) CALCIUM (BEAKER) (test 7.9 mg/dL 8.4-10.2 lqqq=590) EGFR (BEAKER) (test 42 mL/min/1.73 sq m ESTIMATED GFR IS NOT wgzr=5850) ACCURATE CREATININE CLEARANCE IN PREDICTING GLOMERULAR FILTRATION RATE. ESTIMATED GFR IS NOT APPLICABLE FOR DIALYSIS PATIENTS. PROTHROMBIN [id number] 05:32:00 Test Item Value Reference Range Comments PROTIME (BEAKER) (test meln=065) 14.7 seconds 11.9-14.2 INR (BEAKER) (test dfsv=636) 1.2 <=5.9 Effective 04/01/2019: PT Reference Range ChangeNew: 11.9-14.2 Previous: 11.7- 14.7RECOMMENDED COUMADIN/WARFARIN INR THERAPY RANGESSTANDARD DOSE: 2.0-3.0 Includes: PROPHYLAXIS for venous thrombosis, systemic embolization; TREATMENT for venous thrombosis and/or pulmonary embolus.HIGH RISK: Target INR is2.5-3.5 for patients wiht mechanical heart valves.CBC W/PLT COUNT & AUTO [id number] 05:09:00 Test Item Value Reference Range Comments WHITE BLOOD CELL COUNT (BEAKER) (test ovsb=115) 4.7 K/ L 3.5-10.5 RED BLOOD CELL COUNT (BEAKER) (test ktga=386) 2.86 M/ L 3.93-5.22 HEMOGLOBIN (BEAKER) (test ladw=565) 7.9 GM/DL 11.2-15.7 HEMATOCRIT (BEAKER) (test exiy=440) 25.3 % 34.1-44.9 MEAN CORPUSCULAR VOLUME (BEAKER) (test jucl=245) 88.5 fL 79.4-94.8 MEAN CORPUSCULAR HEMOGLOBIN (BEAKER) (test 27.6 pg 25.6-32.2 yfcc=859) MEAN CORPUSCULAR HEMOGLOBIN CONC (BEAKER) (test 31.2 GM/DL 32.2-35.5 uesm=700) RED CELL DISTRIBUTION WIDTH (BEAKER) (test 17.4 % 11.7-14.4 jizh=660) PLATELET COUNT (BEAKER) (test vfaw=477) 141 K/CU MM 150-450 MEAN PLATELET VOLUME (BEAKER) (test aapx=810) 9.3 fL 9.4-12.3 NUCLEATED RED BLOOD CELLS (BEAKER) (test 0 /100 WBC 0-0 mtaf=926) NEUTROPHILS RELATIVE PERCENT (BEAKER) (test 50 % fyey=391) LYMPHOCYTES RELATIVE PERCENT (BEAKER) (test 28 % ahsl=373) MONOCYTES RELATIVE PERCENT (BEAKER) (test 11 % gnue=770) EOSINOPHILS RELATIVE PERCENT (BEAKER) (test 10 % qehv=744) BASOPHILS RELATIVE PERCENT (BEAKER) (test 1 % fkwk=513) NEUTROPHILS ABSOLUTE COUNT (BEAKER) (test 2.33 K/ L 1.56-6.13 jluk=023) LYMPHOCYTES ABSOLUTE COUNT (BEAKER) (test 1.31 K/ L 1.18-3.74 sgng=161) MONOCYTES ABSOLUTE COUNT (BEAKER) (test 0.51 K/ L 0.24-0.36 wkdb=823) EOSINOPHILS ABSOLUTE COUNT (BEAKER) (test 0.46 K/ L 0.04-0.36 cfka=535) BASOPHILS ABSOLUTE COUNT (BEAKER) (test 0.06 K/ L 0.01-0.08 dbkg=240) IMMATURE GRANULOCYTES-RELATIVE PERCENT (BEAKER) 0 % 0-1 (test tpav=9317) BLOOD GAS, [id number] 22:21:00 Test Item Value Reference Range Comments PH ARTERIAL (BEAKER) (test rouu=650) 7.49 7.35-7.45 PCO2 ARTERIAL (BEAKER) (test oppp=029) 43 mmHg 35-45 PO2 ARTERIAL (BEAKER) (test cmwa=468) 56 mmHg 80-90 O2 SATURATION ARTERIAL (BEAKER) (test uzsy=081) 92.5 % 96.0-97.0 HCO3 ARTERIAL (BEAKER) (test umzw=130) 32 mmol/L 21-29 BASE EXCESS ARTERIAL (BEAKER) (test kysh=450) 7.9 mmol/L -2.0-3.0 PATIENT TEMPERATURE (BEAKER) (test udjo=8512) 35.8 C FIO2 (BEAKER) (test njra=3615) 21.0 % POCT-GLUCOSE [id number] 21:14:00 Test Item Value Reference Range Comments POC-GLUCOSE METER (BEAKER) 259 mg/dL 70-110 TESTED AT [address] (test zpij=5393) [place] [address] BODY FLUID CULTURE + GRAM [id number] 18:00:00 Test Item Value Reference Range Comments CULTURE (BEAKER) (test qfwu=4761) No growth GRAM STAIN RESULT (BEAKER) (test No WBCs ozvl=1077) GRAM STAIN RESULT (BEAKER) (test No organisms seen buqq=36531) POCT-GLUCOSE [id number] 17:23:00 Test Item Value Reference Range Comments POC-GLUCOSE METER (BEAKER) 201 mg/dL 70-110 TESTED AT [address] (test jwyr=1277) [place] [address] RAD, MANDIBLE, MIN 4 [id number] 15:00:00Reason for exam:->liver transplant evalShould this be [...] Martinez MDReport Verified Date/Time: 05/23/201915:00:10 Reading Location: [address] Transitional Reading Room CRYPTOCOCCAL [id number] 14:59:00 Test Item Value Reference Range Comments CRYPTOCOCCAL ANTIGEN, SERUM (BEAKER) (test Negative Negative, Interference waja=9099) [id number] 14:45:00 Test Item Value Reference Range Comments RPR SCREEN (BEAKER) (test ijip=536) Nonreactive Nonreactive CYTOMEGALOVIRUS ANTIBODY, [id number] 13:48:00 Test Item Value Reference Range Comments CYTOMEGALOVIRUS, IGG (BEAKER) (test lmsa=3335) Positive Negative, Equivocal CMV IgG Result Interpretation: </=0.8 Al Negative 0.9-1.0 Al Equivocal &gt ;/=1.1 Al PositiveCYTOMEGALOVIRUS ANTIBODY, [id number] 13:48:00 Test Item Value Reference Range Comments CYTOMEGALOVIRUS IGM ANTIBODY (BEAKER) (test Negative Negative, Equivocal kzpe=6208) CMV IgM Result Interpretation: </=0.8 Al Negative 0.9-1.0 Al Equivocal >/=1.1 Al PositiveEBV ANTIBODY, [id number] 13:48:00 Test Item Value Reference Range Comments BERTRAND BOLES VIRAL CAPSID ANTIGEN IGG (BEAKER) Positive Negative, Equivocal (test xvlu=3904) Bertrand Boles Viral Capsid Antigen IgG Result Interpretation: </=0.8 Al Negative 0.9-1.0 Al Equivocal >/=1.1 Al PositiveEBV ANTIBODY, [id number] 13:48:00 Test Item Value Reference Range Comments BERTRAND BOLES VIRAL CAPSID ANTIGEN IGM (BEAKER) Negative Negative, Equivocal (test gfll=6340) Bertrand Boles Viral Capsid Antigen IgM Result Interpretation: </=0.8 Al Negative 0.9-1.0 Al Equivocal >/=1.1 Al PositiveVARICELLA ZOSTER ANTIBODY , [id number] 13:48:00 Test Item Value Reference Range Comments VARICELLA ZOSTER IGG (AL) (BEAKER) (test ruql=7730) 0.9 VARICELLA ZOSTER RESULT INTERPRETATIONS: <=0.8 Al Nonreactive: Presumed non-immune to VZV 0.9-1.0 Al Equivocal >=1.1 Al Reactive: Presumed immune to VZVRUBELLA ANTIBODY, [id number] 13:48:00 Test Item Value Reference Range Comments RUBELLA IGG QUANTITATION (AKER) (test dbdg=876) 12.0 IU/mL <8.0 Rubella IgG Result Interpretation: </=7.0 IU/mL Negative - Presumed non- immune 8.0 - 9.9 IU/mL Equivocal >=10.0 IU/mL Positive - Presumed immunePOCT-GLUCOSE [id number] 11:41:00 Test Item Value Reference Range Comments POC-GLUCOSE METER (BEAKER) 162 mg/dL 70-110 TESTED AT [address] (test efds=8175) [facility] [address] POCT-GLUCOSE [id number] 10:06:00 Test Item Value Reference Range Comments POC-GLUCOSE METER (BEAKER) 95 mg/dL 70-110 TESTED AT [address] (test rale=2947) [place] [id number] IRON, TIBC, % SAT. (WITHOUT FERRITIN)2019-05-23 07:32:00 Test Item Value Reference Range Comments IRON (BEAKER) (test lnho=140) 30.0 ug/dL 40.0-160.0 TOTAL IRON BINDING CAPACITY (BEAKER) (test 143 ug/dL 250-450 bwzt=775) IRON % SATURATION (2) (BEAKER) (test eiij=8111) 21 % 20-55 [id number] 06:29:00 Test Item Value Reference Range Comments PHOSPHORUS (BEAKER) (test wcwa=381) 1.9 mg/dL 2.3-4.7 [id number] 06:29:00 Test Item Value Reference Range Comments MAGNESIUM (BEAKER) (test dkir=751) 1.5 mg/dL 1.6-2.6 HEPATIC FUNCTION [id number] 06:29:00 Test Item Value Reference Range Comments TOTAL PROTEIN (BEAKER) (test wwjg=105) 5.2 gm/dL 6.0-8.3 ALBUMIN (BEAKER) (test xvsp=7959) 3.0 g/dL 3.5-5.0 BILIRUBIN TOTAL (BEAKER) (test pvdq=852) 1.6 mg/dL 0.2-1.2 BILIRUBIN DIRECT (BEAKER) (test jfic=130) 0.8 mg/dL 0.1-0.5 ALKALINE PHOSPHATASE (BEAKER) (test daji=706) 87 U/L 40-150 AST (SGOT) (BEAKER) (test sexh=815) 24 U/L 5-34 ALT (SGPT) (BEAKER) (test hxfv=358) 11 U/L 6-55 COMPREHENSIVE METABOLIC [id number] 06:29:00 Test Item Value Reference Range Comments TOTAL PROTEIN (BEAKER) 5.2 gm/dL 6.0-8.3 (test mjir=921) ALBUMIN (BEAKER) (test 3.0 g/dL 3.5-5.0 gskh=9486) ALKALINE PHOSPHATASE 87 U/L 40-150 (BEAKER) (test ygvm=259) BILIRUBIN TOTAL (BEAKER) 1.6 mg/dL 0.2-1.2 (test fxnf=357) SODIUM (BEAKER) (test 139 meq/L 136-145 qjrd=470) POTASSIUM (BEAKER) (test 3.3 meq/L 3.5-5.1 chhr=965) CHLORIDE (BEAKER) (test 104 meq/L 98-107 ijgn=575) CO2 (BEAKER) (test 30 meq/L 22-29 nxyg=674) BLOOD UREA NITROGEN 18 mg/dL 7-21 (BEAKER) (test bkwo=848) CREATININE (BEAKER) (test 1.41 mg/dL 0.57-1.25 bcvh=414) GLUCOSE RANDOM (BEAKER) 102 mg/dL 70-105 (test gwhh=266) CALCIUM (BEAKER) (test 8.1 mg/dL 8.4-10.2 nwrs=478) AST (SGOT) (BEAKER) (test 24 U/L 5-34 glfj=057) ALT (SGPT) (BEAKER) (test 11 U/L 6-55 avvj=775) EGFR (BEAKER) (test 38 mL/min/1.73 sq m ESTIMATED GFR IS NOT kjzp=5662) ACCURATE CREATININE CLEARANCE IN PREDICTING GLOMERULAR FILTRATION RATE. ESTIMATED GFR IS NOT APPLICABLE FOR DIALYSIS PATIENTS. CBC W/PLT COUNT & AUTO [id number] 05:46:00 Test Item Value Reference Range Comments WHITE BLOOD CELL COUNT (BEAKER) (test xwhj=031) 4.9 K/ L 3.5-10.5 RED BLOOD CELL COUNT (BEAKER) (test keaf=211) 2.83 M/ L 3.93-5.22 HEMOGLOBIN (BEAKER) (test zuwp=529) 8.0 GM/DL 11.2-15.7 HEMATOCRIT (BEAKER) (test inyw=647) 24.4 % 34.1-44.9 MEAN CORPUSCULAR VOLUME (BEAKER) (test vrnr=194) 86.2 fL 79.4-94.8 MEAN CORPUSCULAR HEMOGLOBIN (BEAKER) (test 28.3 pg 25.6-32.2 ufmx=180) MEAN CORPUSCULAR HEMOGLOBIN CONC (BEAKER) (test 32.8 GM/DL 32.2-35.5 bhoy=315) RED CELL DISTRIBUTION WIDTH (BEAKER) (test 17.6 % 11.7-14.4 fldp=741) PLATELET COUNT (BEAKER) (test whsb=015) 147 K/CU MM 150-450 MEAN PLATELET VOLUME (BEAKER) (test qhfr=520) 9.1 fL 9.4-12.3 NUCLEATED RED BLOOD CELLS (BEAKER) (test 0 /100 WBC 0-0 krra=879) NEUTROPHILS RELATIVE PERCENT (BEAKER) (test 51 % qnqx=827) LYMPHOCYTES RELATIVE PERCENT (BEAKER) (test 27 % wxsp=712) MONOCYTES RELATIVE PERCENT (BEAKER) (test 11 % azgs=599) EOSINOPHILS RELATIVE PERCENT (BEAKER) (test 10 % xgug=249) BASOPHILS RELATIVE PERCENT (BEAKER) (test 1 % qdbi=754) NEUTROPHILS ABSOLUTE COUNT (BEAKER) (test 2.51 K/ L 1.56-6.13 medi=666) LYMPHOCYTES ABSOLUTE COUNT (BEAKER) (test 1.30 K/ L 1.18-3.74 eprr=924) MONOCYTES ABSOLUTE COUNT (BEAKER) (test 0.54 K/ L 0.24-0.36 iggc=862) EOSINOPHILS ABSOLUTE COUNT (BEAKER) (test 0.48 K/ L 0.04-0.36 cfnp=265) BASOPHILS ABSOLUTE COUNT (BEAKER) (test 0.06 K/ L 0.01-0.08 gosa=211) IMMATURE GRANULOCYTES-RELATIVE PERCENT (BEAKER) 0 % 0-1 (test qvow=1055) PROTHROMBIN [id number] 05:46:00 Test Item Value Reference Range Comments PROTIME (BEAKER) (test vvfa=516) 14.9 seconds 11.9-14.2 INR (BEAKER) (test zgfb=776) 1.2 <=5.9 Effective 04/01/2019: PT Reference Range ChangeNew: 11.9-14.2 Previous: 11.7- 14.7RECOMMENDED COUMADIN/WARFARIN INR THERAPY RANGESSTANDARD DOSE: 2.0-3.0 Includes: PROPHYLAXIS for venous thrombosis, systemic embolization; TREATMENT for venous thrombosis and/or pulmonary embolus.HIGH RISK: Target INR is2.5-3.5 for patients wiht mechanical heart valves.CALCIUM, [id number] 05:44:00 Test Item Value Reference Range Comments CALCIUM IONIZED (BEAKER) (test ofkk=870) 0.99 mmol/L 1.12-1.27 PH, BLOOD (BEAKER) (test rzjy=6695) 7.48 HEMOGLOBIN [id number] 22:07:00 Test Item Value Reference Range Comments HEMOGLOBIN A1C (BEAKER) (test sqzg=444) 8.1 % 4.3-6.1 POCT-GLUCOSE [id number] 21:38:00 Test Item Value Reference Range Comments POC-GLUCOSE METER (BEAKER) 213 mg/dL 70-110 TESTED AT [address] (test paye=1099) [facility] [address] POCT-GLUCOSE [id number] 18:07:00 Test Item Value Reference Range Comments POC-GLUCOSE METER (BEAKER) 212 mg/dL 70-110 TESTED AT [address] (test slmu=0215) [facility] [address] ALPHA FETOPROTEIN (AFP), TUMOR [id number] 17:50:00 Test Item Value Reference Range Comments ALPHA-FETOPROTEIN (BEAKER) (test ioic=3820) < ng/mL <10.0 HEPATITIS C [id number] 17:49:00 Test Item Value Reference Range Comments HEPATITIS C ANTIBODY (BEAKER) (test rijq=310) Nonreactive Nonreactive VITAMIN D, [id number] 15:10:00 Test Item Value Reference Range Comments VITAMIN D 25-OH (BEAKER) (test irnd=0531) < ng/mL 6.6-49.9 Effective 08/14/2017: Reference Range ChangeNew: 6.6-49.9 ng/mL Previous: 13.0 -47.8 ng/mLRecommended Vitamin D Target Range: 30.0-40.0 ng/mLHEPATITIS B SURFACE [id number] 15:10:00 Test Item Value Reference Range Comments HEPATITIS B SURFACE ANTIBODY (BEAKER) (test < mIU/mL <8.0 goqd=823) CARCINOEMBRYONIC ANTIGEN (CEA)2019-05-22 15:10:00 Test Item Value Reference Range Comments CARCINOEMBRYONIC ANTIGEN (BEAKER) (test qjud=166) < ng/mL 0.0-5.0 HEPATITIS B CORE ANTIBODY, [id number] 15:08:00 Test Item Value Reference Range Comments HEPATITIS B CORE IGM ANTIBODY (BEAKER) (test Nonreactive Nonreactive yibl=135) HEPATITIS A ANTIBODY, [id number] 15:08:00 Test Item Value Reference Range Comments HEPATITIS A IGM ANTIBODY (BEAKER) (test Nonreactive Nonreactive acwu=338) HEPATITIS A ANTIBODY, [id number] 15:08:00 Test Item Value Reference Range Comments HEPATITIS A IGG ANTIBODY (BEAKER) (test Nonreactive Nonreactive vinh=1514) HEPATITIS B SURFACE [id number] 15:05:00 Test Item Value Reference Range Comments HEPATITIS B SURFACE ANTIGEN (2) (BEAKER) (test Nonreactive Nonreactive nmis=4461) HEPATITIS B CORE ANTIBODY, [id number] 15:05:00 Test Item Value Reference Range Comments HEPATITIS B CORE TOTAL ANTIBODY (BEAKER) (test Nonreactive Nonreactive dlfv=545) HIV-1 ANTIGEN WITH HIV-1/2 [id number] 15:05:00 Test Item Value Reference Range Comments HIV-1 ANTIGEN WITH HIV 1\\T\\2 ANTIBODY (2) Nonreactive Nonreactive (BEAKER) (test ubkr=4348) URIC [id number] 14:46:00 Test Item Value Reference Range Comments URIC ACID (BEAKER) (test cxfd=645) 5.7 mg/dL 2.6-7.2 LIPID [id number] 14:46:00 Test Item Value Reference Range Comments TRIGLYCERIDES (BEAKER) (test wglc=651) 71 mg/dL CHOLESTEROL (BEAKER) (test lbxl=875) 72 mg/dL HDL CHOLESTEROL (BEAKER) (test vxlc=228) 20 mg/dL LDL CHOLESTEROL CALCULATED (BEAKER) (test iird=857) 38 mg/dL Triglyceride Reference Range: Low Risk <150 Borderline 150- 199 High Risk 200-499 Very High Risk >=500Cholesterol Reference Range: Low Risk <200 Borderline 200-239 High Risk > 240HDL Cholesterol Reference Range: Low Risk >=60 High Risk <40LDL Cholesterol Reference Range: Optimal <100 Near Optimal 100-129 Borderline 130-159 High 160-189 Very High >=190BILIRUBIN, [id number] 14:46:00 Test Item Value Reference Range Comments BILIRUBIN DIRECT (BEAKER) (test sizr=330) 0.8 mg/dL 0.1-0.5 GAMMA GLUTAMYL TRANSFERASE (GGT)2019-05-22 14:46:00 Test Item Value Reference Range Comments GAMMA GLUTAMYL TRANSFERASE (BEAKER) (test xads=580) 10 U/L 9-64 [id number] 14:45:00 Test Item Value Reference Range Comments ETHANOL (BEAKER) (test lgdi=652) < mg/dL <=10 [id number] 14:44:00 Test Item Value Reference Range Comments TRANSFERRIN (BEAKER) (test vbjm=545) 109 mg/dL 174-382 IRON, TIBC, % SAT. (WITHOUT FERRITIN)2019-05-22 14:44:00 Test Item Value Reference Range Comments IRON (BEAKER) (test ktzv=570) 40.0 ug/dL 40.0-160.0 TOTAL IRON BINDING CAPACITY (BEAKER) (test 136 ug/dL 250-450 vedy=328) IRON % SATURATION (2) (BEAKER) (test gqmk=9822) 29 % 20-55 [id number] 14:34:00 Test Item Value Reference Range Comments PARTIAL THROMBOPLASTIN TIME (DAKOTAH) (test 35.7 seconds 22.5-36.0 kjva=703) [id number] 14:33:00 Test Item Value Reference Range Comments FIBRINOGEN LEVEL (DAKOTAH) (test nmnx=046) 282 mg/dl 225-434 U/S, ABDOMINAL, WITH [id number] 14:09:00Reason for exam:->TIPS evaluationFINAL REPORT Ultrasound of [...] MDReport Verified Date/Time: 05/22/2019 14:09:52 Reading Location: [address] Radiology Reading Room Electronically signed by: MISSY MOMIN M.D. on 2018 02:09 PMPOCT-GLUCOSE [id number] 12:31:00 Test Item Value Reference Range Comments POC-GLUCOSE METER (BEAKER) 252 mg/dL 70-110 TESTED AT [facility] [address] [facility] (test vnxr=4782) [facility] [address] COMPREHENSIVE METABOLIC [id number] 08:22:00 Test Item Value Reference Range Comments TOTAL PROTEIN (BEAKER) 4.8 gm/dL 6.0-8.3 (test blhv=022) ALBUMIN (BEAKER) (test 3.0 g/dL 3.5-5.0 nqjn=9564) ALKALINE PHOSPHATASE 77 U/L 40-150 (BEAKER) (test pzqd=141) BILIRUBIN TOTAL (BEAKER) 1.6 mg/dL 0.2-1.2 (test sdtb=848) SODIUM (BEAKER) (test 141 meq/L 136-145 yajg=429) POTASSIUM (BEAKER) (test 3.1 meq/L 3.5-5.1 vhdg=723) CHLORIDE (BEAKER) (test 105 meq/L 98-107 ocqg=503) CO2 (BEAKER) (test 31 meq/L 22-29 mbtm=950) BLOOD UREA NITROGEN 18 mg/dL 7-21 (BEAKER) (test bkie=893) CREATININE (BEAKER) (test 1.50 mg/dL 0.57-1.25 cbqj=274) GLUCOSE RANDOM (BEAKER) 145 mg/dL 70-105 (test fgjw=602) CALCIUM (BEAKER) (test 7.9 mg/dL 8.4-10.2 ampo=225) AST (SGOT) (BEAKER) (test 23 U/L 5-34 pfgk=669) ALT (SGPT) (BEAKER) (test 7 U/L 6-55 kxtm=865) EGFR (BEAKER) (test 35 mL/min/1.73 sq m ESTIMATED GFR IS NOT ppth=1340) ACCURATE CREATININE CLEARANCE IN PREDICTING GLOMERULAR FILTRATION RATE. ESTIMATED GFR IS NOT APPLICABLE FOR DIALYSIS PATIENTS. [id number] 08:19:00 Test Item Value Reference Range Comments PHOSPHORUS (BEAKER) (test fbvv=861) 2.2 mg/dL 2.3-4.7 [id number] 08:19:00 Test Item Value Reference Range Comments MAGNESIUM (BEAKER) (test mfby=912) 1.5 mg/dL 1.6-2.6 HEPATIC FUNCTION [id number] 08:19:00 Test Item Value Reference Range Comments TOTAL PROTEIN (BEAKER) (test assd=855) 4.8 gm/dL 6.0-8.3 ALBUMIN (BEAKER) (test ggvm=0145) 3.0 g/dL 3.5-5.0 BILIRUBIN TOTAL (BEAKER) (test yyzm=632) 1.6 mg/dL 0.2-1.2 BILIRUBIN DIRECT (BEAKER) (test ahae=154) 0.7 mg/dL 0.1-0.5 ALKALINE PHOSPHATASE (BEAKER) (test vpby=087) 77 U/L 40-150 AST (SGOT) (BEAKER) (test seap=853) 23 U/L 5-34 ALT (SGPT) (BEAKER) (test nyex=585) 7 U/L 6-55 POCT-GLUCOSE [id number] 08:08:00 Test Item Value Reference Range Comments POC-GLUCOSE METER (BEAKER) 154 mg/dL 70-110 TESTED AT [facility] [address] [place] [address] (test nbel=7079) [facility] [address] B-TYPE NATRIURETIC FACTOR (BNP)2019-05-22 06:18:00 Test Item Value Reference Range Comments B-TYPE NATRIURETIC PEPTIDE (BEAKER) (test 411 pg/mL 0-100 skct=196) PROTHROMBIN TIME/[id number] 06:00:00 Test Item Value Reference Range Comments PROTIME (BEAKER) (test kxpn=940) 14.9 seconds 11.9-14.2 INR (BEAKER) (test dzuo=789) 1.2 <=5.9 Effective 04/01/2019: PT Reference Range ChangeNew: 11.9-14.2 Previous: 11.7- 14.7RECOMMENDED COUMADIN/WARFARIN INR THERAPY RANGESSTANDARD DOSE: 2.0-3.0 Includes: PROPHYLAXIS for venous thrombosis, systemic embolization; TREATMENT for venous thrombosis and/or pulmonary embolus.HIGH RISK: Target INR is2.5-3.5 for patients wiht mechanical heart valves.CALCIUM, [id number] 05:48:00 Test Item Value Reference Range Comments CALCIUM IONIZED (BEAKER) (test rvlx=460) 1.04 mmol/L 1.12-1.27 PH, BLOOD (BEAKER) (test phab=6363) 7.40 CBC W/PLT COUNT & AUTO [id number] 05:45:00 Test Item Value Reference Range Comments WHITE BLOOD CELL COUNT (BEAKER) (test sxfl=427) 4.1 K/ L 3.5-10.5 RED BLOOD CELL COUNT (BEAKER) (test hbyw=012) 2.71 M/ L 3.93-5.22 HEMOGLOBIN (BEAKER) (test rujj=674) 7.4 GM/DL 11.2-15.7 HEMATOCRIT (BEAKER) (test wgug=946) 23.6 % 34.1-44.9 MEAN CORPUSCULAR VOLUME (BEAKER) (test arpo=882) 87.1 fL 79.4-94.8 MEAN CORPUSCULAR HEMOGLOBIN (BEAKER) (test 27.3 pg 25.6-32.2 nmgd=343) MEAN CORPUSCULAR HEMOGLOBIN CONC (BEAKER) (test 31.4 GM/DL 32.2-35.5 cdxt=108) RED CELL DISTRIBUTION WIDTH (BEAKER) (test 17.2 % 11.7-14.4 adda=052) PLATELET COUNT (BEAKER) (test jhoi=204) 126 K/CU MM 150-450 MEAN PLATELET VOLUME (BEAKER) (test aizo=156) 9.2 fL 9.4-12.3 NUCLEATED RED BLOOD CELLS (BEAKER) (test 0 /100 WBC 0-0 uxoy=882) NEUTROPHILS RELATIVE PERCENT (BEAKER) (test 49 % cmyo=721) LYMPHOCYTES RELATIVE PERCENT (BEAKER) (test 29 % bccj=491) MONOCYTES RELATIVE PERCENT (BEAKER) (test 12 % gmsm=133) EOSINOPHILS RELATIVE PERCENT (BEAKER) (test 8 % fxpg=619) BASOPHILS RELATIVE PERCENT (BEAKER) (test 1 % cifc=657) NEUTROPHILS ABSOLUTE COUNT (BEAKER) (test 2.03 K/ L 1.56-6.13 izxu=430) LYMPHOCYTES ABSOLUTE COUNT (BEAKER) (test 1.21 K/ L 1.18-3.74 fsdo=029) MONOCYTES ABSOLUTE COUNT (BEAKER) (test 0.51 K/ L 0.24-0.36 reln=626) EOSINOPHILS ABSOLUTE COUNT (BEAKER) (test 0.34 K/ L 0.04-0.36 raoq=862) BASOPHILS ABSOLUTE COUNT (BEAKER) (test 0.04 K/ L 0.01-0.08 ckqx=286) IMMATURE GRANULOCYTES-RELATIVE PERCENT (BEAKER) 0 % 0-1 (test aunp=9625) POCT-GLUCOSE [id number] 21:52:00 Test Item Value Reference Range Comments POC-GLUCOSE METER (BEAKER) 241 mg/dL 70-110 TESTED AT [address] (test kfiv=5237) [place] [address] POCT-GLUCOSE [id number] 17:36:00 Test Item Value Reference Range Comments POC-GLUCOSE METER (BEAKER) 291 mg/dL 70-110 TESTED AT [address] (test nxqs=0068) [place] [id number] BODY FLUID CELL COUNT WITH [id number] 13:52:00 Test Item Value Reference Range Comments APPEARANCE FLUID (BEAKER) (test aead=529) Clear Clear COLOR FLUID (BEAKER) (test wjhm=335) Yellow Colorless, Straw RBC FLUID (BEAKER) (test tsvg=658) 1815 /cu mm <=1 ADJUSTED WBC FLUID (BEAKER) (test biva=0587) 79 /cu mm <=5 LINING CELLS (BEAKER) (test amli=4063) 14 /cu mm <=1 NEUTROPHILS FLUID (BEAKER) (test skfh=7355) 0 % LYMPHS FLUID (BEAKER) (test avlb=017) 25 % MONO/MACROPHAGE FLUID (BEAKER) (test zcuf=577) 74 % EOSINOPHILS FLUID (BEAKER) (test ffya=437) 1 % BASO FLUID (BEAKER) (test efmd=449) 0 % CONTAINER BODY FLUID (BEAKER) (test mvmj=0881) EDTA Tube HEMOGLOBIN [id number] 13:47:00 Test Item Value Reference Range Comments HEMOGLOBIN A1C (BEAKER) (test yvde=313) 8.4 % 4.3-6.1 POCT-GLUCOSE [id number] 11:56:00 Test Item Value Reference Range Comments POC-GLUCOSE METER (BEAKER) 223 mg/dL 70-110 TESTED AT [facility] [address] [facility] (test fxxw=1138) [facility] [address] POCT-GLUCOSE [id number] 08:31:00 Test Item Value Reference Range Comments POC-GLUCOSE METER (BEAKER) 257 mg/dL 70-110 TESTED AT [facility] [address] [facility] (test ugie=9739) [facility] [address] T4, [id number] 08:29:00 Test Item Value Reference Range Comments FREE T4 (BEAKER) (test sdso=977) 0.41 ng/dL 0.70-1.48 BASIC METABOLIC [id number] 08:28:00 Test Item Value Reference Range Comments SODIUM (BEAKER) (test 136 meq/L 136-145 onzv=842) POTASSIUM (BEAKER) (test 3.4 meq/L 3.5-5.1 pfha=622) CHLORIDE (BEAKER) (test 104 meq/L 98-107 kuhi=640) CO2 (BEAKER) (test 27 meq/L 22-29 uorn=240) BLOOD UREA NITROGEN 18 mg/dL 7-21 (BEAKER) (test dahe=950) CREATININE (BEAKER) (test 1.57 mg/dL 0.57-1.25 yflo=022) GLUCOSE RANDOM (BEAKER) 235 mg/dL 70-105 (test qgbs=976) CALCIUM (BEAKER) (test 7.8 mg/dL 8.4-10.2 qegp=960) EGFR (BEAKER) (test 33 mL/min/1.73 sq m ESTIMATED GFR IS NOT ittp=8881) ACCURATE CREATININE CLEARANCE IN PREDICTING GLOMERULAR FILTRATION RATE. ESTIMATED GFR IS NOT APPLICABLE FOR DIALYSIS PATIENTS. Specimen slightly [id number] 08:14:00 Test Item Value Reference Range Comments PHOSPHORUS (BEAKER) (test nkou=310) 2.4 mg/dL 2.3-4.7 [id number] 08:14:00 Test Item Value Reference Range Comments MAGNESIUM (BEAKER) (test nrbq=940) 1.5 mg/dL 1.6-2.6 HEPATIC FUNCTION [id number] 08:14:00 Test Item Value Reference Range Comments TOTAL PROTEIN (BEAKER) (test bnbn=082) 5.1 gm/dL 6.0-8.3 ALBUMIN (BEAKER) (test ihfl=4605) 2.5 g/dL 3.5-5.0 BILIRUBIN TOTAL (BEAKER) (test dlxi=529) 1.3 mg/dL 0.2-1.2 BILIRUBIN DIRECT (BEAKER) (test wqag=752) 0.7 mg/dL 0.1-0.5 ALKALINE PHOSPHATASE (BEAKER) (test zqqj=944) 107 U/L 40-150 AST (SGOT) (BEAKER) (test euax=454) 27 U/L 5-34 ALT (SGPT) (BEAKER) (test ukrh=672) 11 U/L 6-55 Specimen slightly ictericTSH/FREE T4 IF [id number] 07:00:00 Test Item Value Reference Range Comments THYROID STIMULATING HORMONE (BEAKER) (test 59.61 uIU/mL 0.35-4.94 decj=018) PROTHROMBIN [id number] 05:56:00 Test Item Value Reference Range Comments PROTIME (BEAKER) (test vvfy=465) 14.3 seconds 11.9-14.2 INR (BEAKER) (test yyal=296) 1.2 <=5.9 Effective 04/01/2019: PT Reference Range ChangeNew: 11.9-14.2 Previous: 11.7- 14.7RECOMMENDED COUMADIN/WARFARIN INR THERAPY RANGESSTANDARD DOSE: 2.0-3.0 Includes: PROPHYLAXIS for venous thrombosis, systemic embolization; TREATMENT for venous thrombosis and/or pulmonary embolus.HIGH RISK: Target INR is2.5-3.5 for patients wiht mechanical heart valves.CALCIUM, [id number] 05:43:00 Test Item Value Reference Range Comments CALCIUM IONIZED (BEAKER) (test usse=634) 0.97 mmol/L 1.12-1.27 PH, BLOOD (BEAKER) (test gdpi=5724) 7.45 CBC W/PLT COUNT & AUTO [id number] 05:21:00 Test Item Value Reference Range Comments WHITE BLOOD CELL COUNT (BEAKER) (test abdv=730) 5.5 K/ L 3.5-10.5 RED BLOOD CELL COUNT (BEAKER) (test mzrd=060) 3.06 M/ L 3.93-5.22 HEMOGLOBIN (BEAKER) (test nqga=548) 8.3 GM/DL 11.2-15.7 HEMATOCRIT (BEAKER) (test iagd=461) 26.3 % 34.1-44.9 MEAN CORPUSCULAR VOLUME (BEAKER) (test pgsp=362) 85.9 fL 79.4-94.8 MEAN CORPUSCULAR HEMOGLOBIN (BEAKER) (test 27.1 pg 25.6-32.2 itgd=000) MEAN CORPUSCULAR HEMOGLOBIN CONC (BEAKER) (test 31.6 GM/DL 32.2-35.5 uzar=614) RED CELL DISTRIBUTION WIDTH (BEAKER) (test 17.2 % 11.7-14.4 fvym=838) PLATELET COUNT (BEAKER) (test lbbj=437) 154 K/CU MM 150-450 MEAN PLATELET VOLUME (BEAKER) (test ykra=897) 8.9 fL 9.4-12.3 NUCLEATED RED BLOOD CELLS (BEAKER) (test 0 /100 WBC 0-0 ryjy=797) NEUTROPHILS RELATIVE PERCENT (BEAKER) (test 61 % ttii=416) LYMPHOCYTES RELATIVE PERCENT (BEAKER) (test 21 % cjgr=431) MONOCYTES RELATIVE PERCENT (BEAKER) (test 10 % nljj=224) EOSINOPHILS RELATIVE PERCENT (BEAKER) (test 8 % prea=850) BASOPHILS RELATIVE PERCENT (BEAKER) (test 1 % cmpx=721) NEUTROPHILS ABSOLUTE COUNT (BEAKER) (test 3.33 K/ L 1.56-6.13 bmov=857) LYMPHOCYTES ABSOLUTE COUNT (BEAKER) (test 1.13 K/ L 1.18-3.74 bhfc=216) MONOCYTES ABSOLUTE COUNT (BEAKER) (test 0.55 K/ L 0.24-0.36 poay=854) EOSINOPHILS ABSOLUTE COUNT (BEAKER) (test 0.42 K/ L 0.04-0.36 hohd=942) BASOPHILS ABSOLUTE COUNT (BEAKER) (test 0.06 K/ L 0.01-0.08 zzqq=992) IMMATURE GRANULOCYTES-RELATIVE PERCENT (BEAKER) 0 % 0-1 (test hbax=1390) POCT-GLUCOSE [id number] 21:18:00 Test Item Value Reference Range Comments POC-GLUCOSE METER (BEAKER) 258 mg/dL 70-110 TESTED AT [address] (test qmfe=9908) [facility] [address] POCT-GLUCOSE [id number] 17:42:00 Test Item Value Reference Range Comments POC-GLUCOSE METER (BEAKER) 232 mg/dL 70-110 TESTED AT [address] (test njcw=4874) [facility] [address] POCT-GLUCOSE [id number] 12:51:00 Test Item Value Reference Range Comments POC-GLUCOSE METER (BEAKER) 206 mg/dL 70-110 TESTED AT [address] (test qejs=6755) [facility] [address] POCT-GLUCOSE [id number] 07:53:00 Test Item Value Reference Range Comments POC-GLUCOSE METER (BEAKER) 219 mg/dL 70-110 TESTED AT [address] (test odhc=7466) [facility] [address] COMPREHENSIVE METABOLIC [id number] 06:52:00 Test Item Value Reference Range Comments TOTAL PROTEIN (BEAKER) 4.9 gm/dL 6.0-8.3 (test eazl=172) ALBUMIN (BEAKER) (test 2.3 g/dL 3.5-5.0 tiee=8873) ALKALINE PHOSPHATASE 119 U/L 40-150 (BEAKER) (test sxvu=298) BILIRUBIN TOTAL (BEAKER) 1.1 mg/dL 0.2-1.2 (test bnwz=252) SODIUM (BEAKER) (test 135 meq/L 136-145 txjw=830) POTASSIUM (BEAKER) (test 4.0 meq/L 3.5-5.1 dzkw=377) CHLORIDE (BEAKER) (test 105 meq/L 98-107 esot=098) CO2 (BEAKER) (test 26 meq/L 22-29 rhyd=733) BLOOD UREA NITROGEN 18 mg/dL 7-21 (BEAKER) (test qigw=809) CREATININE (BEAKER) (test 1.38 mg/dL 0.57-1.25 shec=983) GLUCOSE RANDOM (BEAKER) 234 mg/dL 70-105 (test jyez=134) CALCIUM (BEAKER) (test 7.8 mg/dL 8.4-10.2 mowu=208) AST (SGOT) (BEAKER) (test 29 U/L 5-34 gevh=528) ALT (SGPT) (BEAKER) (test 13 U/L 6-55 wtsu=714) EGFR (BEAKER) (test 39 mL/min/1.73 sq m ESTIMATED GFR IS NOT fjbo=4730) ACCURATE CREATININE CLEARANCE IN PREDICTING GLOMERULAR FILTRATION RATE. ESTIMATED GFR IS NOT APPLICABLE FOR DIALYSIS PATIENTS. [id number] 06:47:00 Test Item Value Reference Range Comments PHOSPHORUS (BEAKER) (test gqhc=242) 2.0 mg/dL 2.3-4.7 [id number] 06:47:00 Test Item Value Reference Range Comments MAGNESIUM (BEAKER) (test ikfw=452) 1.7 mg/dL 1.6-2.6 HEPATIC FUNCTION [id number] 06:47:00 Test Item Value Reference Range Comments TOTAL PROTEIN (BEAKER) (test fiui=738) 4.9 gm/dL 6.0-8.3 ALBUMIN (BEAKER) (test uwsd=0443) 2.3 g/dL 3.5-5.0 BILIRUBIN TOTAL (BEAKER) (test kvat=796) 1.1 mg/dL 0.2-1.2 BILIRUBIN DIRECT (BEAKER) (test tzyk=106) 0.6 mg/dL 0.1-0.5 ALKALINE PHOSPHATASE (BEAKER) (test iccv=276) 119 U/L 40-150 AST (SGOT) (BEAKER) (test pdev=108) 29 U/L 5-34 ALT (SGPT) (BEAKER) (test kpao=231) 13 U/L 6-55 CBC W/PLT COUNT & AUTO [id number] 06:32:00 Test Item Value Reference Range Comments WHITE BLOOD CELL COUNT (BEAKER) (test hnop=498) 5.3 K/ L 3.5-10.5 RED BLOOD CELL COUNT (BEAKER) (test kjkn=998) 3.05 M/ L 3.93-5.22 HEMOGLOBIN (BEAKER) (test egrs=319) 8.3 GM/DL 11.2-15.7 HEMATOCRIT (BEAKER) (test wvnb=499) 26.7 % 34.1-44.9 MEAN CORPUSCULAR VOLUME (BEAKER) (test ltgr=128) 87.5 fL 79.4-94.8 MEAN CORPUSCULAR HEMOGLOBIN (BEAKER) (test 27.2 pg 25.6-32.2 iaau=532) MEAN CORPUSCULAR HEMOGLOBIN CONC (BEAKER) (test 31.1 GM/DL 32.2-35.5 qhrf=749) RED CELL DISTRIBUTION WIDTH (BEAKER) (test 17.4 % 11.7-14.4 eyox=420) PLATELET COUNT (BEAKER) (test fwdj=265) 161 K/CU MM 150-450 MEAN PLATELET VOLUME (BEAKER) (test vtjb=600) 8.8 fL 9.4-12.3 NUCLEATED RED BLOOD CELLS (BEAKER) (test 0 /100 WBC 0-0 uljy=625) NEUTROPHILS RELATIVE PERCENT (BEAKER) (test 52 % rvjp=576) LYMPHOCYTES RELATIVE PERCENT (BEAKER) (test 27 % ngfz=881) MONOCYTES RELATIVE PERCENT (BEAKER) (test 9 % pqta=835) EOSINOPHILS RELATIVE PERCENT (BEAKER) (test 10 % zozz=979) BASOPHILS RELATIVE PERCENT (BEAKER) (test 2 % nzpi=306) NEUTROPHILS ABSOLUTE COUNT (BEAKER) (test 2.75 K/ L 1.56-6.13 xqok=289) LYMPHOCYTES ABSOLUTE COUNT (BEAKER) (test 1.42 K/ L 1.18-3.74 morr=582) MONOCYTES ABSOLUTE COUNT (BEAKER) (test 0.48 K/ L 0.24-0.36 qydv=155) EOSINOPHILS ABSOLUTE COUNT (BEAKER) (test 0.54 K/ L 0.04-0.36 napu=355) BASOPHILS ABSOLUTE COUNT (BEAKER) (test 0.08 K/ L 0.01-0.08 wqii=114) IMMATURE GRANULOCYTES-RELATIVE PERCENT (BEAKER) 0 % 0-1 (test rvmn=0291) B-TYPE NATRIURETIC FACTOR (BNP)2019-05-20 06:27:00 Test Item Value Reference Range Comments B-TYPE NATRIURETIC PEPTIDE (BEAKER) (test 274 pg/mL 0-100 qzeo=440) VANCOMYCIN LEVEL, [id number] 06:16:00 Test Item Value Reference Range Comments VANCOMYCIN TROUGH (BEAKER) (test vquj=736) 5.8 ug/mL 10.0-20.0 [id number] 06:11:00 Test Item Value Reference Range Comments D-DIMER QUANTITATIVE (BEAKER) (test edkj=654) 3.95 MG/L FEU <0.50 Intended Use: The [...] exclusion of thrombosis is within 95-100% range.CALCIUM, [id number] 06:04:00 Test Item Value Reference Range Comments CALCIUM IONIZED (BEAKER) (test vlub=706) 1.06 mmol/L 1.12-1.27 PH, BLOOD (BEAKER) (test dpfe=9496) 7.43 PROTHROMBIN [id number] 06:02:00 Test Item Value Reference Range Comments PROTIME (BEAKER) (test fjeq=962) 13.8 seconds 11.9-14.2 INR (BEAKER) (test vkkm=041) 1.1 <=5.9 Effective 04/01/2019: PT Reference Range ChangeNew: 11.9-14.2 Previous: 11.7- 14.7RECOMMENDED COUMADIN/WARFARIN INR THERAPY RANGESSTANDARD DOSE: 2.0-3.0 Includes: PROPHYLAXIS for venous thrombosis, systemic embolization; TREATMENT for venous thrombosis and/or pulmonary embolus.HIGH RISK: Target INR is2.5-3.5 for patients wiht mechanical heart valves.TROPONIN [id number] 02:44:00 Test Item Value Reference Range Comments TROPONIN I (BEAKER) (test zcfq=216) 0.01 ng/mL 0.00-0.03 Troponin I (TnI) levels [...] acute neurological disease, and persistent tachyarrhythmia.PROTEIN, RANDOM [id number] 01:50:00 Test Item Value Reference Range Comments PROTEIN, URINE (BEAKER) (test gttq=9846) 20 mg/dL 0-14 CREATININE, RANDOM [id number] 01:49:00 Test Item Value Reference Range Comments CREATININE URINE (BEAKER) (test pqqu=844) 184.6 mg/dL Reference Range: No NormalsRAD, CHEST, 1 VIEW, NON [id number] 01:49: 00Reason for exam:->anasarcaShould this be performed [...] Verified Date/Time: 05/20/2019 01:49 :05 Reading Location: [address] Reading Room POCT-GLUCOSE [id number] 00:36:00 Test Item Value Reference Range Comments POC-GLUCOSE METER (BEAKER) 326 mg/dL 70-110 TESTED AT [facility] [address] [place] [address] (test zkhg=9618) [facility] [address] URINALYSIS W/ [id number] 00:02:00 Test Item Value Reference Range Comments COLOR (BEAKER) (test wsnv=597) Yellow CLARITY (BEAKER) (test qena=602) Clear SPECIFIC GRAVITY UA (BEAKER) (test hogt=043) 1.020 1.001-1.035 PH UA (BEAKER) (test jbnx=210) 5.5 5.0-8.0 PROTEIN UA (BEAKER) (test gbrz=415) 20 mg/dL Negative GLUCOSE UA (BEAKER) (test zsvx=413) 300 mg/dL Negative KETONES UA (BEAKER) (test cxcu=406) Negative Negative BILIRUBIN UA (BEAKER) (test muiu=617) Negative Negative BLOOD UA (BEAKER) (test eyqk=523) Negative Negative NITRITE UA (BEAKER) (test tzox=263) Negative Negative LEUKOCYTE ESTERASE UA (BEAKER) (test hptm=974) Small Negative UROBILINOGEN UA (BEAKER) (test eeou=968) 2.0 mg/dL 0.2-1.0 RBC UA (BEAKER) (test lhxg=125) 2 /HPF WBC UA (BEAKER) (test csey=912) 2 /HPF MUCUS (BEAKER) (test rnkl=2045) Rare SQUAMOUS EPITHELIAL (BEAKER) (test rbzb=321) 6 /HPF HYALINE CASTS (BEAKER) (test pvws=659) 5 /LPF SOURCE(BEAKER) (test grtv=2930) Urine, Voided T4, [id number] 22:29:00 Test Item Value Reference Range Comments FREE T4 (BEAKER) (test hzpu=054) 0.44 ng/dL 0.70-1.48 HEMOGLOBIN [id number] 22:15:00 Test Item Value Reference Range Comments HEMOGLOBIN A1C (BEAKER) (test mggn=667) 8.6 % 4.3-6.1 TSH/FREE T4 IF [id number] 21:43:00 Test Item Value Reference Range Comments THYROID STIMULATING HORMONE (BEAKER) (test 72.01 uIU/mL 0.35-4.94 kmgu=635) B-TYPE NATRIURETIC FACTOR (BNP)2019-05-19 21:29:00 Test Item Value Reference Range Comments B-TYPE NATRIURETIC PEPTIDE (BEAKER) (test 222 pg/mL 0-100 pehx=323) PROTHROMBIN [id number] 21:26:00 Test Item Value Reference Range Comments PROTIME (BEAKER) (test ausg=374) 13.6 seconds 11.9-14.2 INR (BEAKER) (test bpfm=438) 1.1 <=5.9 Effective 04/01/2019: PT Reference Range ChangeNew: 11.9-14.2 Previous: 11.7- 14.7RECOMMENDED COUMADIN/WARFARIN INR THERAPY RANGESSTANDARD DOSE: 2.0-3.0 Includes: PROPHYLAXIS for venous thrombosis, systemic embolization; TREATMENT for venous thrombosis and/or pulmonary embolus.HIGH RISK: Target INR is2.5-3.5 for patients wiht mechanical heart valves.TROPONIN [id number] 21:26:00 Test Item Value Reference Range Comments TROPONIN I (BEAKER) (test ltmq=770) < ng/mL 0.00-0.03 Troponin I (TnI) levels [...] failure, acidosis, acute neurological disease, and persistent tachyarrhythmia.[id number] 21:18:00 Test Item Value Reference Range Comments MAGNESIUM (BEAKER) (test 1.8 mg/dL 1.6-2.6 Specimen markedly hemolyzed aksw=406) [id number] 21:18:00 Test Item Value Reference Range Comments PHOSPHORUS (BEAKER) (test 2.1 mg/dL 2.3-4.7 Specimen markedly hemolyzed lysy=387) BASIC METABOLIC [id number] 21:18:00 Test Item Value Reference Range Comments SODIUM (BEAKER) (test 136 meq/L 136-145 gunq=631) POTASSIUM (BEAKER) (test 4.8 meq/L 3.5-5.1 Specimen markedly akfo=561) hemolyzed CHLORIDE (BEAKER) (test 103 meq/L 98-107 vtdy=886) CO2 (BEAKER) (test 29 meq/L 22-29 gopo=514) BLOOD UREA NITROGEN 17 mg/dL 7-21 (BEAKER) (test zmjl=273) CREATININE (BEAKER) (test 1.33 mg/dL 0.57-1.25 Specimen markedly gudw=763) hemolyzed GLUCOSE RANDOM (BEAKER) 248 mg/dL 70-105 (test cufb=345) CALCIUM (BEAKER) (test 8.1 mg/dL 8.4-10.2 mcch=421) EGFR (BEAKER) (test 41 mL/min/1.73 sq m ESTIMATED GFR IS NOT holc=4028) ACCURATE CREATININE CLEARANCE IN PREDICTING GLOMERULAR FILTRATION RATE. ESTIMATED GFR IS NOT APPLICABLE FOR DIALYSIS PATIENTS. HEPATIC FUNCTION [id number] 21:18:00 Test Item Value Reference Range Comments TOTAL PROTEIN (BEAKER) (test 6.4 gm/dL 6.0-8.3 Specimen markedly hemolyzed jfmq=410) ALBUMIN (BEAKER) (test 2.5 g/dL 3.5-5.0 Specimen markedly hemolyzed irmw=9594) BILIRUBIN TOTAL (BEAKER) (test 1.3 mg/dL 0.2-1.2 Specimen markedly hemolyzed yokh=339) BILIRUBIN DIRECT (BEAKER) (test 0.3 mg/dL 0.1-0.5 Specimen markedly hemolyzed etdw=083) ALKALINE PHOSPHATASE (BEAKER) 143 U/L 40-150 (test ylrr=529) AST (SGOT) (BEAKER) (test 61 U/L 5-34 Specimen markedly hemolyzed eulm=969) ALT (SGPT) (BEAKER) (test 15 U/L 6-55 Specimen markedly hemolyzed myow=097) CBC W/PLT COUNT & AUTO [id number] 20:58:00 Test Item Value Reference Range Comments WHITE BLOOD CELL COUNT (BEAKER) (test igkn=256) 6.0 K/ L 3.5-10.5 RED BLOOD CELL COUNT (BEAKER) (test wjrw=827) 3.57 M/ L 3.93-5.22 HEMOGLOBIN (BEAKER) (test lexj=377) 9.8 GM/DL 11.2-15.7 HEMATOCRIT (BEAKER) (test kask=570) 30.6 % 34.1-44.9 MEAN CORPUSCULAR VOLUME (BEAKER) (test vilt=026) 85.7 fL 79.4-94.8 MEAN CORPUSCULAR HEMOGLOBIN (BEAKER) (test 27.5 pg 25.6-32.2 hxge=539) MEAN CORPUSCULAR HEMOGLOBIN CONC (BEAKER) (test 32.0 GM/DL 32.2-35.5 ciuw=508) RED CELL DISTRIBUTION WIDTH (BEAKER) (test 17.4 % 11.7-14.4 kcwy=883) PLATELET COUNT (BEAKER) (test hyhj=155) 199 K/CU MM 150-450 MEAN PLATELET VOLUME (BEAKER) (test mgxe=660) 9.1 fL 9.4-12.3 NUCLEATED RED BLOOD CELLS (BEAKER) (test 0 /100 WBC 0-0 tdlv=892) NEUTROPHILS RELATIVE PERCENT (BEAKER) (test 53 % ytqh=197) LYMPHOCYTES RELATIVE PERCENT (BEAKER) (test 27 % udaz=837) MONOCYTES RELATIVE PERCENT (BEAKER) (test 8 % wxgg=687) EOSINOPHILS RELATIVE PERCENT (BEAKER) (test 10 % xpyb=246) BASOPHILS RELATIVE PERCENT (BEAKER) (test 1 % tkhu=085) NEUTROPHILS ABSOLUTE COUNT (BEAKER) (test 3.21 K/ L 1.56-6.13 eznu=569) LYMPHOCYTES ABSOLUTE COUNT (BEAKER) (test 1.62 K/ L 1.18-3.74 kffa=578) MONOCYTES ABSOLUTE COUNT (BEAKER) (test 0.50 K/ L 0.24-0.36 zxqn=183) EOSINOPHILS ABSOLUTE COUNT (BEAKER) (test 0.62 K/ L 0.04-0.36 bmvv=073) BASOPHILS ABSOLUTE COUNT (BEAKER) (test 0.08 K/ L 0.01-0.08 pxlt=266) IMMATURE GRANULOCYTES-RELATIVE PERCENT (BEAKER) 0 % 0-1 (test kzxi=3226) BODY FLUID CULTURE + GRAM [id number] 13:44:00 Test Item Value Reference Range Comments CULTURE (BEAKER) (test niqi=6906) No growth GRAM STAIN RESULT (BEAKER) (test <1+ White blood cells seen nquu=0360) GRAM STAIN RESULT (BEAKER) (test No organisms seen rsrq=96152) BODY FLUID CULTURE + GRAM [id number] 14:06:00 Test Item Value Reference Range Comments CULTURE (BEAKER) (test rhbf=8428) No growth GRAM STAIN RESULT (BEAKER) (test No White blood cells seen bgre=3894) GRAM STAIN RESULT (BEAKER) (test No organisms seen ebik=17567) BASIC METABOLIC [id number] 08:41:00 Test Item Value Reference Range Comments SODIUM (BEAKER) (test 132 meq/L 136-145 ueos=362) POTASSIUM (BEAKER) (test 4.4 meq/L 3.5-5.1 ytvq=132) CHLORIDE (BEAKER) (test 100 meq/L 98-107 jpnz=850) CO2 (BEAKER) (test 25 meq/L 22-29 rcbt=722) BLOOD UREA NITROGEN 53 mg/dL 7-21 (BEAKER) (test bcvq=803) CREATININE (BEAKER) (test 1.80 mg/dL 0.57-1.25 hcum=404) GLUCOSE RANDOM (BEAKER) 211 mg/dL 70-105 (test neur=580) CALCIUM (BEAKER) (test 9.0 mg/dL 8.4-10.2 ksmp=383) EGFR (BEAKER) (test 29 mL/min/1.73 sq m ESTIMATED GFR IS NOT cinw=2759) ACCURATE CREATININE CLEARANCE IN PREDICTING GLOMERULAR FILTRATION RATE. ESTIMATED GFR IS NOT APPLICABLE FOR DIALYSIS PATIENTS. POCT-GLUCOSE [id number] 08:16:00 Test Item Value Reference Range Comments POC-GLUCOSE METER (BEAKER) 213 mg/dL 70-110 TESTED AT [facility] [address] [place] [address] (test xyrx=7349) [facility] [address] HEPATIC FUNCTION [id number] 06:43:00 Test Item Value Reference Range Comments TOTAL PROTEIN (BEAKER) (test afzp=637) 5.7 gm/dL 6.0-8.3 ALBUMIN (BEAKER) (test nnvi=1133) 4.2 g/dL 3.5-5.0 BILIRUBIN TOTAL (BEAKER) (test idou=807) 1.6 mg/dL 0.2-1.2 BILIRUBIN DIRECT (BEAKER) (test zbfq=520) 0.8 mg/dL 0.1-0.5 ALKALINE PHOSPHATASE (BEAKER) (test phhu=433) 95 U/L 40-150 AST (SGOT) (BEAKER) (test xdvj=527) 71 U/L 5-34 ALT (SGPT) (BEAKER) (test klhx=142) 68 U/L 6-55 POCT-GLUCOSE [id number] 22:00:00 Test Item Value Reference Range Comments POC-GLUCOSE METER (BEAKER) 341 mg/dL 70-110 Notified ALEXI ENNIS/TESTED AT [facility] (test lrqo=6762) [address] [place] [id number] BODY FLUID CELL COUNT WITH [id number] 20:00:00 Test Item Value Reference Range Comments APPEARANCE FLUID (BEAKER) (test dhml=746) Hazy Clear COLOR FLUID (BEAKER) (test oqfz=628) Straw Colorless, Straw RBC FLUID (BEAKER) (test oasp=340) 4000 /cu mm <=1 ADJUSTED WBC FLUID (BEAKER) (test pvdg=9967) 140 /cu mm <=5 LINING CELLS (BEAKER) (test wrbd=1079) 1 /cu mm <=1 NEUTROPHILS FLUID (BEAKER) (test gqvd=9349) 1 % LYMPHS FLUID (BEAKER) (test eqar=038) 30 % MONO/MACROPHAGE FLUID (BEAKER) (test wwuw=014) 69 % EOSINOPHILS FLUID (BEAKER) (test afmi=027) 0 % BASO FLUID (BEAKER) (test jxzr=354) 0 % CONTAINER BODY FLUID (BEAKER) (test gnjq=8244) EDTA Tube U/S, [id number] 16:42:00Reason for exam:->ascites limited 6 litersFINAL REPORT PROCEDURE: Ultrasound-guided paracentesis. INDICATION: 59-year-old woman with ascites. DESCRIPTION: After obtaining informed written consent, ultrasound scan of the abdomen identified ascites in the right lower quadrant. The overlying skin was prepped and draped in the usual, sterile fashion and local 2% lidocaine anesthesia was administered. A 5 Mongolian catheter was advanced into the peritoneal cavity and 6000 cc of serous fluid was removed. The catheter was removed without immediate complication. Samples were sent for analysis. IMPRESSION:Uncomplicated ultrasound-guided paracentesis with 6000 cc fluid removed. Signed: Antwon Bose MDReport Verified Date/Time: 02/24/2019 16:42:07 Reading Location: [address] Ultrasound Reading Room POCT-GLUCOSE [id number] 13:07:00 Test Item Value Reference Range Comments POC-GLUCOSE METER (BEAKER) 290 mg/dL 70-110 TESTED AT [address] (test iuwv=5948) [facility] [address] PROTHROMBIN [id number] 12:01:00 Test Item Value Reference Range Comments PROTIME (BEAKER) (test uihq=590) 14.3 seconds 11.7-14.7 INR (BEAKER) (test wtau=938) 1.1 <=5.9 RECOMMENDED COUMADIN/WARFARIN INR THERAPY RANGESSTANDARD DOSE: 2.0 - 3.0 Includes: PROPHYLAXIS forvenous thrombosis, systemic embolization; TREATMENT for venous thrombosis and/or pulmonary embolus.HIGH RISK: Target INR is 2.5-3.5 for patients with mechanical heart valves.[id number] 12:01:00 Test Item Value Reference Range Comments PARTIAL THROMBOPLASTIN TIME (BEAKER) (test 32.5 seconds 22.5-36.0 mcyd=317) POCT-GLUCOSE [id number] 08:39:00 Test Item Value Reference Range Comments POC-GLUCOSE METER (BEAKER) 279 mg/dL 70-110 TESTED AT [facility] [address] [facility] (test ylbw=7859) [place] [address] CALCIUM, [id number] 07:04:00 Test Item Value Reference Range Comments CALCIUM IONIZED (BEAKER) (test tlml=557) 1.08 mmol/L 1.12-1.27 PH, BLOOD (BEAKER) (test ltxv=7022) 7.38 COMPREHENSIVE METABOLIC [id number] 05:59:00 Test Item Value Reference Range Comments TOTAL PROTEIN (BEAKER) 5.5 gm/dL 6.0-8.3 (test kwto=345) ALBUMIN (BEAKER) (test 3.8 g/dL 3.5-5.0 ftsk=1405) ALKALINE PHOSPHATASE 125 U/L 40-150 (BEAKER) (test bnvk=342) BILIRUBIN TOTAL (BEAKER) 0.9 mg/dL 0.2-1.2 (test dzkd=579) SODIUM (BEAKER) (test 130 meq/L 136-145 jjne=341) POTASSIUM (BEAKER) (test 4.0 meq/L 3.5-5.1 pesi=130) CHLORIDE (BEAKER) (test 99 meq/L 98-107 tyjc=734) CO2 (BEAKER) (test 23 meq/L 22-29 bgqm=594) BLOOD UREA NITROGEN 51 mg/dL 7-21 (BEAKER) (test ucgm=032) CREATININE (BEAKER) (test 2.07 mg/dL 0.57-1.25 huyv=756) GLUCOSE RANDOM (BEAKER) 320 mg/dL 70-105 (test jdhq=521) CALCIUM (BEAKER) (test 8.7 mg/dL 8.4-10.2 qkyq=070) AST (SGOT) (BEAKER) (test 111 U/L 5-34 bsaa=270) ALT (SGPT) (BEAKER) (test 98 U/L 6-55 yzsn=343) EGFR (BEAKER) (test 24 mL/min/1.73 sq m ESTIMATED GFR IS NOT nalk=0759) ACCURATE CREATININE CLEARANCE IN PREDICTING GLOMERULAR FILTRATION RATE. ESTIMATED GFR IS NOT APPLICABLE FOR DIALYSIS PATIENTS. [id number] 05:58:00 Test Item Value Reference Range Comments PHOSPHORUS (BEAKER) (test pnco=830) 2.1 mg/dL 2.3-4.7 [id number] 05:58:00 Test Item Value Reference Range Comments MAGNESIUM (BEAKER) (test nmux=193) 2.3 mg/dL 1.6-2.6 HEPATIC FUNCTION [id number] 05:58:00 Test Item Value Reference Range Comments TOTAL PROTEIN (BEAKER) (test ekyq=299) 5.5 gm/dL 6.0-8.3 ALBUMIN (BEAKER) (test mlqi=1304) 3.8 g/dL 3.5-5.0 BILIRUBIN TOTAL (BEAKER) (test ebub=993) 0.9 mg/dL 0.2-1.2 BILIRUBIN DIRECT (BEAKER) (test knvp=269) 0.4 mg/dL 0.1-0.5 ALKALINE PHOSPHATASE (BEAKER) (test lkja=245) 125 U/L 40-150 AST (SGOT) (BEAKER) (test qgxy=801) 111 U/L 5-34 ALT (SGPT) (BEAKER) (test gsap=369) 98 U/L 6-55 CBC W/PLT COUNT & AUTO [id number] 05:29:00 Test Item Value Reference Range Comments WHITE BLOOD CELL COUNT (BEAKER) (test yeek=742) 5.9 K/ L 3.5-10.5 RED BLOOD CELL COUNT (BEAKER) (test uold=998) 3.00 M/ L 3.93-5.22 HEMOGLOBIN (BEAKER) (test apdf=562) 8.5 GM/DL 11.2-15.7 HEMATOCRIT (BEAKER) (test qifq=473) 25.3 % 34.1-44.9 MEAN CORPUSCULAR VOLUME (BEAKER) (test gkkc=426) 84.3 fL 79.4-94.8 MEAN CORPUSCULAR HEMOGLOBIN (BEAKER) (test 28.3 pg 25.6-32.2 femq=030) MEAN CORPUSCULAR HEMOGLOBIN CONC (BEAKER) (test 33.6 GM/DL 32.2-35.5 lzwy=833) RED CELL DISTRIBUTION WIDTH (BEAKER) (test 14.8 % 11.7-14.4 zmwt=463) PLATELET COUNT (BEAKER) (test iluz=586) 146 K/CU MM 150-450 MEAN PLATELET VOLUME (BEAKER) (test cpjw=365) 10.1 fL 9.4-12.3 NUCLEATED RED BLOOD CELLS (BEAKER) (test 0 /100 WBC 0-0 wkny=736) NEUTROPHILS RELATIVE PERCENT (BEAKER) (test 67 % jywr=451) LYMPHOCYTES RELATIVE PERCENT (BEAKER) (test 16 % scol=592) MONOCYTES RELATIVE PERCENT (BEAKER) (test 10 % edqp=261) EOSINOPHILS RELATIVE PERCENT (BEAKER) (test 6 % bwqp=664) BASOPHILS RELATIVE PERCENT (BEAKER) (test 1 % brgk=569) NEUTROPHILS ABSOLUTE COUNT (BEAKER) (test 3.94 K/ L 1.56-6.13 zopn=768) LYMPHOCYTES ABSOLUTE COUNT (BEAKER) (test 0.96 K/ L 1.18-3.74 yheq=185) MONOCYTES ABSOLUTE COUNT (BEAKER) (test 0.57 K/ L 0.24-0.36 lern=857) EOSINOPHILS ABSOLUTE COUNT (BEAKER) (test 0.37 K/ L 0.04-0.36 bdke=433) BASOPHILS ABSOLUTE COUNT (BEAKER) (test 0.03 K/ L 0.01-0.08 fdpx=680) IMMATURE GRANULOCYTES-RELATIVE PERCENT (BEAKER) 0 % 0-1 (test kitw=3726) POCT-GLUCOSE [id number] 21:01:00 Test Item Value Reference Range Comments POC-GLUCOSE METER (BEAKER) 371 mg/dL 70-110 Notified ALEXI ENNIS/TESTED AT [facility] (test pohg=6387) [address] [place] [address] POCT-GLUCOSE [id number] 17:30:00 Test Item Value Reference Range Comments POC-GLUCOSE METER (BEAKER) 389 mg/dL 70-110 TESTED AT [address] (test pqsz=9990) [facility] [address] POCT-GLUCOSE [id number] 08:50:00 Test Item Value Reference Range Comments POC-GLUCOSE METER (BEAKER) 303 mg/dL 70-110 TESTED AT [address] (test urox=1549) [facility] [address] POCT-GLUCOSE [id number] 08:27:00 Test Item Value Reference Range Comments POC-GLUCOSE METER (BEAKER) 342 mg/dL 70-110 Will Repeat Test/TESTED AT (test vzab=0634) [facility] [address] [facility] [address] CALCIUM, [id number] 07:20:00 Test Item Value Reference Range Comments CALCIUM IONIZED (BEAKER) (test shlh=310) 0.98 mmol/L 1.12-1.27 PH, BLOOD (BEAKER) (test rmom=4639) 7.41 COMPREHENSIVE METABOLIC [id number] 07:05:00 Test Item Value Reference Range Comments TOTAL PROTEIN (BEAKER) 5.0 gm/dL 6.0-8.3 (test wgbo=406) ALBUMIN (BEAKER) (test 3.3 g/dL 3.5-5.0 ixzg=2229) ALKALINE PHOSPHATASE 126 U/L 40-150 (BEAKER) (test ppbw=876) BILIRUBIN TOTAL (BEAKER) 1.2 mg/dL 0.2-1.2 (test aaaj=124) SODIUM (BEAKER) (test 128 meq/L 136-145 ihsn=738) POTASSIUM (BEAKER) (test 4.1 meq/L 3.5-5.1 cdtf=421) CHLORIDE (BEAKER) (test 98 meq/L 98-107 kgba=083) CO2 (BEAKER) (test 20 meq/L 22-29 ogbx=913) BLOOD UREA NITROGEN 43 mg/dL 7-21 (BEAKER) (test mhsu=807) CREATININE (BEAKER) (test 2.39 mg/dL 0.57-1.25 ywvf=750) GLUCOSE RANDOM (BEAKER) 305 mg/dL 70-105 (test jjbg=709) CALCIUM (BEAKER) (test 8.1 mg/dL 8.4-10.2 qrir=866) AST (SGOT) (BEAKER) (test 173 U/L 5-34 woqz=150) ALT (SGPT) (BEAKER) (test 143 U/L 6-55 eflx=454) EGFR (BEAKER) (test 21 mL/min/1.73 sq m ESTIMATED GFR IS NOT jiba=5261) ACCURATE CREATININE CLEARANCE IN PREDICTING GLOMERULAR FILTRATION RATE. ESTIMATED GFR IS NOT APPLICABLE FOR DIALYSIS PATIENTS. [id number] 06:56:00 Test Item Value Reference Range Comments PHOSPHORUS (BEAKER) (test lbea=655) 2.5 mg/dL 2.3-4.7 [id number] 06:56:00 Test Item Value Reference Range Comments MAGNESIUM (BEAKER) (test vpmr=986) 1.9 mg/dL 1.6-2.6 HEPATIC FUNCTION [id number] 06:56:00 Test Item Value Reference Range Comments TOTAL PROTEIN (BEAKER) (test ypps=934) 5.0 gm/dL 6.0-8.3 ALBUMIN (BEAKER) (test ombe=9712) 3.3 g/dL 3.5-5.0 BILIRUBIN TOTAL (BEAKER) (test nrya=865) 1.2 mg/dL 0.2-1.2 BILIRUBIN DIRECT (BEAKER) (test odjs=700) 0.6 mg/dL 0.1-0.5 ALKALINE PHOSPHATASE (BEAKER) (test cjkm=138) 126 U/L 40-150 AST (SGOT) (BEAKER) (test exnz=533) 173 U/L 5-34 ALT (SGPT) (BEAKER) (test emzm=566) 143 U/L 6-55 CBC W/PLT COUNT & AUTO [id number] 06:17:00 Test Item Value Reference Range Comments WHITE BLOOD CELL COUNT (BEAKER) (test icks=438) 5.7 K/ L 3.5-10.5 RED BLOOD CELL COUNT (BEAKER) (test tsae=573) 3.40 M/ L 3.93-5.22 HEMOGLOBIN (BEAKER) (test tiqe=028) 9.2 GM/DL 11.2-15.7 HEMATOCRIT (BEAKER) (test rnah=854) 29.1 % 34.1-44.9 MEAN CORPUSCULAR VOLUME (BEAKER) (test pzjd=813) 85.6 fL 79.4-94.8 MEAN CORPUSCULAR HEMOGLOBIN (BEAKER) (test 27.1 pg 25.6-32.2 lkkd=712) MEAN CORPUSCULAR HEMOGLOBIN CONC (BEAKER) (test 31.6 GM/DL 32.2-35.5 zufb=682) RED CELL DISTRIBUTION WIDTH (BEAKER) (test 14.7 % 11.7-14.4 swmv=254) PLATELET COUNT (BEAKER) (test ogpa=327) 128 K/CU MM 150-450 MEAN PLATELET VOLUME (BEAKER) (test zpwf=522) 10.3 fL 9.4-12.3 NUCLEATED RED BLOOD CELLS (BEAKER) (test 0 /100 WBC 0-0 khlk=469) NEUTROPHILS RELATIVE PERCENT (BEAKER) (test 69 % euiu=874) LYMPHOCYTES RELATIVE PERCENT (BEAKER) (test 15 % gmiu=744) MONOCYTES RELATIVE PERCENT (BEAKER) (test 9 % uorl=606) EOSINOPHILS RELATIVE PERCENT (BEAKER) (test 6 % ebtn=982) BASOPHILS RELATIVE PERCENT (BEAKER) (test 1 % lium=482) NEUTROPHILS ABSOLUTE COUNT (BEAKER) (test 3.91 K/ L 1.56-6.13 hmcb=378) LYMPHOCYTES ABSOLUTE COUNT (BEAKER) (test 0.86 K/ L 1.18-3.74 sccl=183) MONOCYTES ABSOLUTE COUNT (BEAKER) (test 0.51 K/ L 0.24-0.36 jaqn=340) EOSINOPHILS ABSOLUTE COUNT (BEAKER) (test 0.35 K/ L 0.04-0.36 hmxe=977) BASOPHILS ABSOLUTE COUNT (BEAKER) (test 0.03 K/ L 0.01-0.08 tkjv=831) IMMATURE GRANULOCYTES-RELATIVE PERCENT (BEAKER) 0 % 0-1 (test ldxa=4088) BODY FLUID CELL COUNT WITH [id number] 17:06:00 Test Item Value Reference Range Comments APPEARANCE FLUID (BEAKER) (test qiav=840) Hazy Clear COLOR FLUID (BEAKER) (test inus=744) Yellow Colorless, Straw RBC FLUID (BEAKER) (test dilc=903) 6000 /cu mm <=1 ADJUSTED WBC FLUID (BEAKER) (test utjm=6781) 125 /cu mm <=5 LINING CELLS (BEAKER) (test maab=7168) 2 /cu mm <=1 NEUTROPHILS FLUID (BEAKER) (test xmta=8190) 6 % LYMPHS FLUID (BEAKER) (test ckul=510) 21 % MONO/MACROPHAGE FLUID (BEAKER) (test argc=400) 73 % EOSINOPHILS FLUID (BEAKER) (test epjf=794) 0 % BASO FLUID (BEAKER) (test zlce=743) 0 % CONTAINER BODY FLUID (BEAKER) (test klqa=5091) EDTA Tube POCT-GLUCOSE [id number] 16:40:00 Test Item Value Reference Range Comments POC-GLUCOSE METER (BEAKER) 396 mg/dL 70-110 TESTED AT [facility] [address] (test lnam=7066) [facility] [address] U/S, [id number] 16:12:00limit to 6 LReason for exam:->ascites, limit to 6 LFINAL REPORT Paracentesis dated 02/22/2019 Procedure: Ultrasound-guided paracentesis. Preprocedure diagnosis: Ascites Postprocedure diagnosis: Ascites Conscious sedation: None. Radiologist: Giovanni Haas M.D. Entry Level Sales Representative: None Anesthesia: 1% Xylocaine mixed with sodium [...] 02/22/2019 16:12 :23 Reading Location: [facility] C013Y CT Body Reading Room RAD, CHEST, 1 VIEW, NON [id number] 12:22:00Reason for exam:->coughShould this be performed at [...] Time: 02/22/2019 12:22:24 Reading Location: [facility] C013W Consult Reading Room POCT-GLUCOSE [id number] 07:55:00 Test Item Value Reference Range Comments POC-GLUCOSE METER (BEAKER) 317 mg/dL 70-110 TESTED AT [address] (test tpkl=0253) [facility] [address] POCT-GLUCOSE [id number] 07:24:00 Test Item Value Reference Range Comments POC-GLUCOSE METER (BEAKER) 386 mg/dL 70-110 Notified ALEXI ENNIS/TESTED AT [facility] (test pakc=9774) [address] [place] [address] POCT-GLUCOSE [id number] 07:24:00 Test Item Value Reference Range Comments POC-GLUCOSE METER (BEAKER) 295 mg/dL 70-110 TESTED AT [address] (test igxl=7299) [facility] [address] POCT-GLUCOSE [id number] 07:24:00 Test Item Value Reference Range Comments POC-GLUCOSE METER (BEAKER) 256 mg/dL 70-110 TESTED AT [address] (test lsfw=7183) [facility] [address] BASIC METABOLIC [id number] 06:50:00 Test Item Value Reference Range Comments SODIUM (BEAKER) (test 128 meq/L 136-145 kwwa=494) POTASSIUM (BEAKER) (test 4.0 meq/L 3.5-5.1 tidv=381) CHLORIDE (BEAKER) (test 100 meq/L 98-107 zbll=641) CO2 (BEAKER) (test 21 meq/L 22-29 pjwa=146) BLOOD UREA NITROGEN 40 mg/dL 7-21 (BEAKER) (test abgf=120) CREATININE (BEAKER) (test 2.62 mg/dL 0.57-1.25 gjfw=940) GLUCOSE RANDOM (BEAKER) 351 mg/dL 70-105 (test txqz=069) CALCIUM (BEAKER) (test 8.0 mg/dL 8.4-10.2 pzuk=874) EGFR (BEAKER) (test 19 mL/min/1.73 sq m ESTIMATED GFR IS NOT xxoe=2216) ACCURATE CREATININE CLEARANCE IN PREDICTING GLOMERULAR FILTRATION RATE. ESTIMATED GFR IS NOT APPLICABLE FOR DIALYSIS PATIENTS. [id number] 06:46:00 Test Item Value Reference Range Comments MAGNESIUM (BEAKER) (test bqus=966) 1.9 mg/dL 1.6-2.6 BLOOD [id number] 20:01:00 Test Item Value Reference Range Comments CULTURE (BEAKER) (test eqdl=6596) No growth in 5 days BLOOD [id number] 20:01:00 Test Item Value Reference Range Comments CULTURE (BEAKER) (test smcc=1470) No growth in 5 days POCT-GLUCOSE [id number] 08:39:00 Test Item Value Reference Range Comments POC-GLUCOSE METER (BEAKER) 300 mg/dL 70-110 TESTED AT [facility] [address] (test rhnl=6052) [facility] [address] POCT-GLUCOSE [id number] 08:39:00 Test Item Value Reference Range Comments POC-GLUCOSE METER (BEAKER) 330 mg/dL 70-110 Notified ALEXI ENNIS/TESTED AT [facility] (test lshe=2422) [address] [facility] [address] COMPREHENSIVE METABOLIC [id number] 08:25:00 Test Item Value Reference Range Comments TOTAL PROTEIN (BEAKER) 4.9 gm/dL 6.0-8.3 (test rrmi=834) ALBUMIN (BEAKER) (test 3.3 g/dL 3.5-5.0 tudb=1299) ALKALINE PHOSPHATASE 129 U/L 40-150 (BEAKER) (test uidi=731) BILIRUBIN TOTAL (BEAKER) 1.2 mg/dL 0.2-1.2 (test oitk=882) SODIUM (BEAKER) (test 130 meq/L 136-145 itcu=823) POTASSIUM (BEAKER) (test 4.5 meq/L 3.5-5.1 gvae=027) CHLORIDE (BEAKER) (test 102 meq/L 98-107 huwh=221) CO2 (BEAKER) (test 20 meq/L 22-29 ebej=761) BLOOD UREA NITROGEN 32 mg/dL 7-21 (BEAKER) (test zsrt=697) CREATININE (BEAKER) (test 2.28 mg/dL 0.57-1.25 hhdl=877) GLUCOSE RANDOM (BEAKER) 341 mg/dL 70-105 (test yhbd=045) CALCIUM (BEAKER) (test 8.1 mg/dL 8.4-10.2 vjry=133) AST (SGOT) (BEAKER) (test 851 U/L 5-34 omwn=541) ALT (SGPT) (BEAKER) (test 345 U/L 6-55 erns=575) EGFR (BEAKER) (test 22 mL/min/1.73 sq m ESTIMATED GFR IS NOT zsog=1846) ACCURATE CREATININE CLEARANCE IN PREDICTING GLOMERULAR FILTRATION RATE. ESTIMATED GFR IS NOT APPLICABLE FOR DIALYSIS PATIENTS. [id number] 08:19:00 Test Item Value Reference Range Comments PHOSPHORUS (BEAKER) (test vtrr=864) 2.3 mg/dL 2.3-4.7 [id number] 08:19:00 Test Item Value Reference Range Comments MAGNESIUM (BEAKER) (test aqup=210) 1.9 mg/dL 1.6-2.6 CALCIUM, [id number] 07:20:00 Test Item Value Reference Range Comments CALCIUM IONIZED (BEAKER) (test cyks=708) 0.98 mmol/L 1.12-1.27 PH, BLOOD (BEAKER) (test xktm=3487) 7.42 CBC W/PLT COUNT & AUTO [id number] 06:36:00 Test Item Value Reference Range Comments WHITE BLOOD CELL COUNT (BEAKER) (test mzne=763) 8.1 K/ L 3.5-10.5 RED BLOOD CELL COUNT (BEAKER) (test mtub=211) 3.43 M/ L 3.93-5.22 HEMOGLOBIN (BEAKER) (test reoo=665) 9.2 GM/DL 11.2-15.7 HEMATOCRIT (BEAKER) (test ezhe=975) 29.3 % 34.1-44.9 MEAN CORPUSCULAR VOLUME (BEAKER) (test ywfw=106) 85.4 fL 79.4-94.8 MEAN CORPUSCULAR HEMOGLOBIN (BEAKER) (test 26.8 pg 25.6-32.2 said=937) MEAN CORPUSCULAR HEMOGLOBIN CONC (BEAKER) (test 31.4 GM/DL 32.2-35.5 tzla=416) RED CELL DISTRIBUTION WIDTH (BEAKER) (test 14.6 % 11.7-14.4 slao=970) PLATELET COUNT (BEAKER) (test jbyv=104) 132 K/CU MM 150-450 MEAN PLATELET VOLUME (BEAKER) (test iiqk=448) 9.3 fL 9.4-12.3 NUCLEATED RED BLOOD CELLS (BEAKER) (test 0 /100 WBC 0-0 bukt=506) NEUTROPHILS RELATIVE PERCENT (BEAKER) (test 77 % lfet=303) LYMPHOCYTES RELATIVE PERCENT (BEAKER) (test 13 % ndyv=866) MONOCYTES RELATIVE PERCENT (BEAKER) (test 8 % ssnh=070) EOSINOPHILS RELATIVE PERCENT (BEAKER) (test 2 % tqhb=335) BASOPHILS RELATIVE PERCENT (BEAKER) (test 1 % nnyu=002) NEUTROPHILS ABSOLUTE COUNT (BEAKER) (test 6.17 K/ L 1.56-6.13 otdt=661) LYMPHOCYTES ABSOLUTE COUNT (BEAKER) (test 1.02 K/ L 1.18-3.74 bbfo=965) MONOCYTES ABSOLUTE COUNT (BEAKER) (test 0.61 K/ L 0.24-0.36 llye=091) EOSINOPHILS ABSOLUTE COUNT (BEAKER) (test 0.18 K/ L 0.04-0.36 wdky=165) BASOPHILS ABSOLUTE COUNT (BEAKER) (test 0.05 K/ L 0.01-0.08 slrd=977) IMMATURE GRANULOCYTES-RELATIVE PERCENT (BEAKER) 1 % 0-1 (test kelf=0714) BASIC METABOLIC [id number] 19:24:00 Test Item Value Reference Range Comments SODIUM (BEAKER) (test 132 meq/L 136-145 yflk=257) POTASSIUM (BEAKER) (test 4.8 meq/L 3.5-5.1 vcgc=667) CHLORIDE (BEAKER) (test 103 meq/L 98-107 ltac=998) CO2 (BEAKER) (test 20 meq/L 22-29 cwkf=905) BLOOD UREA NITROGEN 30 mg/dL 7-21 (BEAKER) (test pfui=077) CREATININE (BEAKER) (test 1.85 mg/dL 0.57-1.25 kjng=753) GLUCOSE RANDOM (BEAKER) 297 mg/dL 70-105 (test chic=355) CALCIUM (BEAKER) (test 8.7 mg/dL 8.4-10.2 mhwr=584) EGFR (BEAKER) (test 28 mL/min/1.73 sq m ESTIMATED GFR IS NOT wqnj=1602) ACCURATE CREATININE CLEARANCE IN PREDICTING GLOMERULAR FILTRATION RATE. ESTIMATED GFR IS NOT APPLICABLE FOR DIALYSIS PATIENTS. Please draw [address] Quiroz at [phone] with results.Call [id number] 19:22:00 Test Item Value Reference Range Comments SODIUM (BEAKER) (test nvem=781) 132 meq/L 136-145 POTASSIUM (BEAKER) (test acty=040) 4.8 meq/L 3.5-5.1 CHLORIDE (BEAKER) (test ilkh=628) 103 meq/L 98-107 CO2 (BEAKER) (test pctb=254) 20 meq/L 22-29 Please draw 4 hours after [address]PS. Page Dr. Quiroz at [phone] with results.Call [id number] 18:11:00 Test Item Value Reference Range Comments POC-GLUCOSE METER (BEAKER) 314 mg/dL 70-110 TESTED AT [address] (test ence=9525) [place] [id number] POCT-GLUCOSE [id number] 17:29:00 Test Item Value Reference Range Comments POC-GLUCOSE METER (BEAKER) 255 mg/dL 70-110 TESTED AT [address] (test vfrb=8039) [facility] [address] POCT-GLUCOSE [id number] 13:02:00 Test Item Value Reference Range Comments POC-GLUCOSE METER (BEAKER) 289 mg/dL 70-110 TESTED AT [address] (test wtxq=8285) [place] [id number] BODY FLUID CULTURE + GRAM [id number] 12:08:00 Test Item Value Reference Range Comments CULTURE (BEAKER) (test jqsm=9033) No growth GRAM STAIN RESULT (BEAKER) (test <1+ WBCs gspb=5104) GRAM STAIN RESULT (BEAKER) (test No organisms seen dwhf=54281) SEAMUS [id number] 09:29:00Reason for exam:->cirrhosis/ portal hypertension , refractory [...] and a bleeding placement of a 10 Mongolian sheath from theright hepatic vein to the [...] 1 L of yellow fluid. The 5 Mongolian needle/catheter was inserted with real-time ultrasound guidance into the peritoneal cavity in the right lateral abdomen following sterile preparation. Following this, the sheath catheter was removed. CONCLUSION: Successful TIPS and paracentesis. Signed: Yulia Kaba MDReport Verified Date/Time: 02/20/2019 09:29:18 Reading Location : [place] [address] Angio Body Reading Room CALCIUM, [id number] 06:43:00 Test Item Value Reference Range Comments CALCIUM IONIZED (BEAKER) (test dbbr=583) 1.02 mmol/L 1.12-1.27 PH, BLOOD (BEAKER) (test zook=2164) 7.40 [id number] 06:12:00 Test Item Value Reference Range Comments PHOSPHORUS (BEAKER) (test xfeq=308) 2.5 mg/dL 2.3-4.7 [id number] 06:12:00 Test Item Value Reference Range Comments MAGNESIUM (BEAKER) (test knre=471) 1.6 mg/dL 1.6-2.6 HEPATIC FUNCTION [id number] 06:12:00 Test Item Value Reference Range Comments TOTAL PROTEIN (BEAKER) (test fmyo=496) 5.3 gm/dL 6.0-8.3 ALBUMIN (BEAKER) (test aqux=2497) 3.6 g/dL 3.5-5.0 BILIRUBIN TOTAL (BEAKER) (test jhum=956) 1.2 mg/dL 0.2-1.2 BILIRUBIN DIRECT (BEAKER) (test lwkg=049) 0.6 mg/dL 0.1-0.5 ALKALINE PHOSPHATASE (BEAKER) (test uiff=615) 80 U/L 40-150 AST (SGOT) (BEAKER) (test dkot=200) 99 U/L 5-34 ALT (SGPT) (BEAKER) (test cboz=303) 52 U/L 6-55 COMPREHENSIVE METABOLIC [id number] 06:12:00 Test Item Value Reference Range Comments TOTAL PROTEIN (BEAKER) 5.3 gm/dL 6.0-8.3 (test jwyb=347) ALBUMIN (BEAKER) (test 3.6 g/dL 3.5-5.0 rxxu=3172) ALKALINE PHOSPHATASE 80 U/L 40-150 (BEAKER) (test ngvs=861) BILIRUBIN TOTAL (BEAKER) 1.2 mg/dL 0.2-1.2 (test izrb=891) SODIUM (BEAKER) (test 133 meq/L 136-145 tdkn=805) POTASSIUM (BEAKER) (test 5.4 meq/L 3.5-5.1 yehu=282) CHLORIDE (BEAKER) (test 104 meq/L 98-107 paep=944) CO2 (BEAKER) (test 22 meq/L 22-29 wffa=311) BLOOD UREA NITROGEN 27 mg/dL 7-21 (BEAKER) (test sbva=902) CREATININE (BEAKER) (test 1.58 mg/dL 0.57-1.25 dovy=105) GLUCOSE RANDOM (BEAKER) 300 mg/dL 70-105 (test lsov=855) CALCIUM (BEAKER) (test 8.4 mg/dL 8.4-10.2 near=465) AST (SGOT) (BEAKER) (test 99 U/L 5-34 kjhv=257) ALT (SGPT) (BEAKER) (test 52 U/L 6-55 veis=100) EGFR (BEAKER) (test 33 mL/min/1.73 sq m ESTIMATED GFR IS NOT ajcq=1049) ACCURATE CREATININE CLEARANCE IN PREDICTING GLOMERULAR FILTRATION RATE. ESTIMATED GFR IS NOT APPLICABLE FOR DIALYSIS PATIENTS. PROTHROMBIN [id number] 05:57:00 Test Item Value Reference Range Comments PROTIME (BEAKER) (test iwhi=585) 16.4 seconds 11.7-14.7 INR (BEAKER) (test kgim=146) 1.3 <=5.9 RECOMMENDED COUMADIN/WARFARIN INR THERAPY RANGESSTANDARD DOSE: 2.0 - 3.0 Includes: PROPHYLAXIS forvenous thrombosis, systemic embolization; TREATMENT for venous thrombosis and/or pulmonary embolus.HIGH RISK: Target INR is 2.5-3.5 for patients with mechanical heart valves.CBC W/PLT COUNT & AUTO [id number] 05:54:00 Test Item Value Reference Range Comments WHITE BLOOD CELL COUNT (BEAKER) (test mxlz=579) 7.9 K/ L 3.5-10.5 RED BLOOD CELL COUNT (BEAKER) (test ticc=126) 3.24 M/ L 3.93-5.22 HEMOGLOBIN (BEAKER) (test podm=272) 8.9 GM/DL 11.2-15.7 HEMATOCRIT (BEAKER) (test xaco=877) 28.0 % 34.1-44.9 MEAN CORPUSCULAR VOLUME (BEAKER) (test zais=448) 86.4 fL 79.4-94.8 MEAN CORPUSCULAR HEMOGLOBIN (BEAKER) (test 27.5 pg 25.6-32.2 pcvh=746) MEAN CORPUSCULAR HEMOGLOBIN CONC (BEAKER) (test 31.8 GM/DL 32.2-35.5 dqcl=001) RED CELL DISTRIBUTION WIDTH (BEAKER) (test 14.4 % 11.7-14.4 nwle=726) PLATELET COUNT (BEAKER) (test jnuz=271) 132 K/CU MM 150-450 MEAN PLATELET VOLUME (BEAKER) (test jllv=533) 9.3 fL 9.4-12.3 NUCLEATED RED BLOOD CELLS (BEAKER) (test 0 /100 WBC 0-0 ssms=064) NEUTROPHILS RELATIVE PERCENT (BEAKER) (test 83 % eoyv=810) LYMPHOCYTES RELATIVE PERCENT (BEAKER) (test 10 % mqev=626) MONOCYTES RELATIVE PERCENT (BEAKER) (test 7 % cmth=860) EOSINOPHILS RELATIVE PERCENT (BEAKER) (test 0 % bnzg=870) BASOPHILS RELATIVE PERCENT (BEAKER) (test 0 % letc=594) NEUTROPHILS ABSOLUTE COUNT (BEAKER) (test 6.55 K/ L 1.56-6.13 ifyi=727) LYMPHOCYTES ABSOLUTE COUNT (BEAKER) (test 0.77 K/ L 1.18-3.74 lkva=353) MONOCYTES ABSOLUTE COUNT (BEAKER) (test 0.55 K/ L 0.24-0.36 crxb=872) EOSINOPHILS ABSOLUTE COUNT (BEAKER) (test 0.00 K/ L 0.04-0.36 tgdo=216) BASOPHILS ABSOLUTE COUNT (BEAKER) (test 0.02 K/ L 0.01-0.08 myxe=849) IMMATURE GRANULOCYTES-RELATIVE PERCENT (BEAKER) 0 % 0-1 (test mpxl=2223) POCT-GLUCOSE [id number] 19:01:00 Test Item Value Reference Range Comments POC-GLUCOSE METER (BEAKER) 301 mg/dL 70-110 TESTED AT [facility] [address] [place] [address] (test bwnq=7243) [facility] [address] [address], ABDOMEN, WITHOUT [id number] 12:33:00FINAL REPORT ABDOMINAL CT DATED 02/19/2019 CLINICAL [...] [place] Verified Date/Time: 02/19/2019 12:33:54 Reading Location: [address] Body Reading Room Electronicallysigned by: GIOVANNI HAAS M.D. on 02/19/2019 12:33 PMBODY FLUID CULTURE + GRAM [id number] 12:08:00 Test Item Value Reference Range Comments CULTURE (BEAKER) (test kkhp=9823) No growth GRAM STAIN RESULT (BEAKER) (test <1+ WBCs cdhv=3921) GRAM STAIN RESULT (BEAKER) (test No organisms seen ygex=25814) POCT-GLUCOSE [id number] 09:38:00 Test Item Value Reference Range Comments POC-GLUCOSE METER (BEAKER) 274 mg/dL 70-110 TESTED AT [address] (test jjmn=1226) [facility] [address] CALCIUM, [id number] 06:56:00 Test Item Value Reference Range Comments CALCIUM IONIZED (BEAKER) (test zfji=324) 1.05 mmol/L 1.12-1.27 PH, BLOOD (BEAKER) (test dbkr=4173) 7.40 [id number] 06:22:00 Test Item Value Reference Range Comments PHOSPHORUS (BEAKER) (test yitl=347) 2.3 mg/dL 2.3-4.7 [id number] 06:22:00 Test Item Value Reference Range Comments MAGNESIUM (BEAKER) (test gcfz=925) 1.7 mg/dL 1.6-2.6 HEPATIC FUNCTION [id number] 06:22:00 Test Item Value Reference Range Comments TOTAL PROTEIN (BEAKER) (test wfuu=138) 5.6 gm/dL 6.0-8.3 ALBUMIN (BEAKER) (test avhi=6857) 3.4 g/dL 3.5-5.0 BILIRUBIN TOTAL (BEAKER) (test oyap=110) 0.9 mg/dL 0.2-1.2 BILIRUBIN DIRECT (BEAKER) (test ujxe=879) 0.4 mg/dL 0.1-0.5 ALKALINE PHOSPHATASE (BEAKER) (test pxqx=655) 121 U/L 40-150 AST (SGOT) (BEAKER) (test xxwk=627) 28 U/L 5-34 ALT (SGPT) (BEAKER) (test ibsn=463) 12 U/L 6-55 COMPREHENSIVE METABOLIC [id number] 06:22:00 Test Item Value Reference Range Comments TOTAL PROTEIN (BEAKER) 5.6 gm/dL 6.0-8.3 (test ceot=793) ALBUMIN (BEAKER) (test 3.4 g/dL 3.5-5.0 dwwy=9593) ALKALINE PHOSPHATASE 121 U/L 40-150 (BEAKER) (test htes=957) BILIRUBIN TOTAL (BEAKER) 0.9 mg/dL 0.2-1.2 (test bjxi=559) SODIUM (BEAKER) (test 135 meq/L 136-145 wagf=452) POTASSIUM (BEAKER) (test 4.5 meq/L 3.5-5.1 vqee=652) CHLORIDE (BEAKER) (test 105 meq/L 98-107 epke=138) CO2 (BEAKER) (test 22 meq/L 22-29 jqrf=509) BLOOD UREA NITROGEN 29 mg/dL 7-21 (BEAKER) (test cwgu=874) CREATININE (BEAKER) (test 1.38 mg/dL 0.57-1.25 qwfi=292) GLUCOSE RANDOM (BEAKER) 313 mg/dL 70-105 (test bukd=973) CALCIUM (BEAKER) (test 8.7 mg/dL 8.4-10.2 lzyh=982) AST (SGOT) (BEAKER) (test 28 U/L 5-34 lrbe=598) ALT (SGPT) (BEAKER) (test 12 U/L 6-55 ttzy=839) EGFR (BEAKER) (test 39 mL/min/1.73 sq m ESTIMATED GFR IS NOT djal=9646) ACCURATE CREATININE CLEARANCE IN PREDICTING GLOMERULAR FILTRATION RATE. ESTIMATED GFR IS NOT APPLICABLE FOR DIALYSIS PATIENTS. PROTHROMBIN [id number] 06:15:00 Test Item Value Reference Range Comments PROTIME (BEAKER) (test lnki=567) 14.0 seconds 11.7-14.7 INR (BEAKER) (test xbem=682) 1.1 <=5.9 RECOMMENDED COUMADIN/WARFARIN INR THERAPY RANGESSTANDARD DOSE: 2.0 - 3.0 Includes: PROPHYLAXIS forvenous thrombosis, systemic embolization; TREATMENT for venous thrombosis and/or pulmonary embolus.HIGH RISK: Target INR is 2.5-3.5 for patients with mechanical heart valves.CBC W/PLT COUNT & AUTO [id number] 05:57:00 Test Item Value Reference Range Comments WHITE BLOOD CELL COUNT (BEAKER) (test smvz=766) 6.9 K/ L 3.5-10.5 RED BLOOD CELL COUNT (BEAKER) (test knqe=713) 3.83 M/ L 3.93-5.22 HEMOGLOBIN (BEAKER) (test favz=985) 10.5 GM/DL 11.2-15.7 HEMATOCRIT (BEAKER) (test ijjm=693) 33.1 % 34.1-44.9 MEAN CORPUSCULAR VOLUME (BEAKER) (test ywnw=738) 86.4 fL 79.4-94.8 MEAN CORPUSCULAR HEMOGLOBIN (BEAKER) (test 27.4 pg 25.6-32.2 wwhc=366) MEAN CORPUSCULAR HEMOGLOBIN CONC (BEAKER) (test 31.7 GM/DL 32.2-35.5 qmqt=221) RED CELL DISTRIBUTION WIDTH (BEAKER) (test 14.4 % 11.7-14.4 itlj=640) PLATELET COUNT (BEAKER) (test ncuf=635) 175 K/CU MM 150-450 MEAN PLATELET VOLUME (BEAKER) (test itxy=511) 9.9 fL 9.4-12.3 NUCLEATED RED BLOOD CELLS (BEAKER) (test 0 /100 WBC 0-0 vooj=463) NEUTROPHILS RELATIVE PERCENT (BEAKER) (test 73 % qrbg=924) LYMPHOCYTES RELATIVE PERCENT (BEAKER) (test 16 % clxn=431) MONOCYTES RELATIVE PERCENT (BEAKER) (test 7 % ldlw=504) EOSINOPHILS RELATIVE PERCENT (BEAKER) (test 4 % drxo=394) BASOPHILS RELATIVE PERCENT (BEAKER) (test 1 % siyc=570) NEUTROPHILS ABSOLUTE COUNT (BEAKER) (test 4.99 K/ L 1.56-6.13 nirw=445) LYMPHOCYTES ABSOLUTE COUNT (BEAKER) (test 1.09 K/ L 1.18-3.74 kjqe=611) MONOCYTES ABSOLUTE COUNT (BEAKER) (test 0.50 K/ L 0.24-0.36 wpgi=351) EOSINOPHILS ABSOLUTE COUNT (BEAKER) (test 0.25 K/ L 0.04-0.36 woao=624) BASOPHILS ABSOLUTE COUNT (BEAKER) (test 0.04 K/ L 0.01-0.08 pboa=768) IMMATURE GRANULOCYTES-RELATIVE PERCENT (BEAKER) 0 % 0-1 (test kmix=6040) POCT-GLUCOSE [id number] 23:05:00 Test Item Value Reference Range Comments POC-GLUCOSE METER (BEAKER) 412 mg/dL 70-110 Will Repeat Test/TESTED AT (test zowb=2182) [address] [address] POCT-GLUCOSE [id number] 22:12:00 Test Item Value Reference Range Comments POC-GLUCOSE METER (BEAKER) 371 mg/dL 70-110 TESTED AT [address] (test boai=8548) [facility] [address] BODY FLUID CELL COUNT WITH [id number] 13:06:00 Test Item Value Reference Range Comments APPEARANCE FLUID (BEAKER) (test znev=499) Slightly Hazy Clear COLOR FLUID (BEAKER) (test cukw=691) Yellow Colorless, Straw RBC FLUID (BEAKER) (test txjk=135) 252 /cu mm <=1 ADJUSTED WBC FLUID (BEAKER) (test tkvv=0579) 112 /cu mm <=5 LINING CELLS (BEAKER) (test gief=0601) 10 /cu mm <=1 NEUTROPHILS FLUID (BEAKER) (test tezf=3685) 8 % LYMPHS FLUID (BEAKER) (test vvlq=687) 40 % MONO/MACROPHAGE FLUID (BEAKER) (test 43 % vlmj=349) EOSINOPHILS FLUID (BEAKER) (test csjt=397) 0 % BASO FLUID (BEAKER) (test azly=306) 0 % CONTAINER BODY FLUID (BEAKER) (test EDTA Tube dyyb=5524) U/S, [id number] 10:21:00Limit 8 LReason for exam:->ascites, limit 8 [...] skin and deep soft tissues. A 5 Mongolian one-step catheter was inserted and removed from the peritoneal space and approximately 8.0 liters of clear yellow fluid was aspirated from the abdomen. There were no immediate complications. Impression: Successful ultrasound guided paracentesis with aspiration of 8.0 liters of fluid. Signed: Akil Chung MDReport Verified Date/ Time: 02/18/2019 10:21:08 Reading Location: [address] Ultrasound Reading Room [id number] 07:08:00 Test Item Value Reference Range Comments MAGNESIUM (BEAKER) (test fylp=850) 1.7 mg/dL 1.6-2.6 HEPATIC FUNCTION [id number] 07:08:00 Test Item Value Reference Range Comments TOTAL PROTEIN (BEAKER) (test igfy=969) 5.4 gm/dL 6.0-8.3 ALBUMIN (BEAKER) (test ulok=8369) 3.2 g/dL 3.5-5.0 BILIRUBIN TOTAL (BEAKER) (test ggyb=927) 0.8 mg/dL 0.2-1.2 BILIRUBIN DIRECT (BEAKER) (test ahzr=763) 0.4 mg/dL 0.1-0.5 ALKALINE PHOSPHATASE (BEAKER) (test seok=185) 104 U/L 40-150 AST (SGOT) (BEAKER) (test xvpd=940) 20 U/L 5-34 ALT (SGPT) (BEAKER) (test cfvz=084) 10 U/L 6-55 COMPREHENSIVE METABOLIC [id number] 07:08:00 Test Item Value Reference Range Comments TOTAL PROTEIN (BEAKER) 5.4 gm/dL 6.0-8.3 (test nhxj=141) ALBUMIN (BEAKER) (test 3.2 g/dL 3.5-5.0 ptue=9319) ALKALINE PHOSPHATASE 104 U/L 40-150 (BEAKER) (test teun=836) BILIRUBIN TOTAL (BEAKER) 0.8 mg/dL 0.2-1.2 (test qxfw=500) SODIUM (BEAKER) (test 136 meq/L 136-145 dvyd=877) POTASSIUM (BEAKER) (test 4.3 meq/L 3.5-5.1 uhkd=753) CHLORIDE (BEAKER) (test 108 meq/L 98-107 tnvh=790) CO2 (BEAKER) (test 22 meq/L 22-29 mgjy=540) BLOOD UREA NITROGEN 31 mg/dL 7-21 (BEAKER) (test etrq=517) CREATININE (BEAKER) (test 1.26 mg/dL 0.57-1.25 cral=440) GLUCOSE RANDOM (BEAKER) 262 mg/dL 70-105 (test idte=619) CALCIUM (BEAKER) (test 8.5 mg/dL 8.4-10.2 sdrb=144) AST (SGOT) (BEAKER) (test 20 U/L 5-34 idbz=330) ALT (SGPT) (BEAKER) (test 10 U/L 6-55 pgbe=170) EGFR (BEAKER) (test 43 mL/min/1.73 sq m ESTIMATED GFR IS NOT cxns=9415) ACCURATE CREATININE CLEARANCE IN PREDICTING GLOMERULAR FILTRATION RATE. ESTIMATED GFR IS NOT APPLICABLE FOR DIALYSIS PATIENTS. [id number] 07:07:00 Test Item Value Reference Range Comments PHOSPHORUS (BEAKER) (test mego=470) 2.7 mg/dL 2.3-4.7 POCT-GLUCOSE [id number] 06:31:00 Test Item Value Reference Range Comments POC-GLUCOSE METER (BEAKER) 249 mg/dL 70-110 TESTED AT [facility] [address] [facility] (test ifcw=3352) [facility] [address] URINALYSIS W/ [id number] 06:17:00 Test Item Value Reference Range Comments COLOR (BEAKER) (test pppe=854) Yellow CLARITY (BEAKER) (test bilu=061) Clear SPECIFIC GRAVITY UA (BEAKER) (test gvbv=115) 1.013 1.001-1.035 PH UA (BEAKER) (test mcpe=112) 5.0 5.0-8.0 PROTEIN UA (BEAKER) (test aeie=586) Negative Negative GLUCOSE UA (BEAKER) (test djaq=766) 100 mg/dL Negative KETONES UA (BEAKER) (test musi=386) Negative Negative BILIRUBIN UA (BEAKER) (test qfvg=298) Negative Negative BLOOD UA (BEAKER) (test fjvy=080) Negative Negative NITRITE UA (BEAKER) (test aoml=453) Negative Negative LEUKOCYTE ESTERASE UA (BEAKER) (test bsuc=853) Large Negative UROBILINOGEN UA (BEAKER) (test dmgh=671) 0.2 mg/dL 0.2-1.0 RBC UA (BEAKER) (test txow=218) 2 /HPF WBC UA (BEAKER) (test xjpa=760) 24 /HPF SQUAMOUS EPITHELIAL (BEAKER) (test tgea=222) 14 /HPF HYALINE CASTS (BEAKER) (test atiu=324) 3 /LPF SOURCE(BEAKER) (test libr=9984) Urine, Voided [id number] 05:53:00 Test Item Value Reference Range Comments PARTIAL THROMBOPLASTIN TIME (BEAKER) (test 20.1 seconds 22.5-36.0 dqsi=177) CALCIUM, [id number] 05:50:00 Test Item Value Reference Range Comments CALCIUM IONIZED (BEAKER) (test mrxl=343) 1.00 mmol/L 1.12-1.27 PH, BLOOD (BEAKER) (test vrze=9777) 7.43 PROTHROMBIN [id number] 04:54:00 Test Item Value Reference Range Comments PROTIME (BEAKER) (test uevq=687) 13.8 seconds 11.7-14.7 INR (BEAKER) (test uzkd=587) 1.0 <=5.9 RECOMMENDED COUMADIN/WARFARIN INR THERAPY RANGESSTANDARD DOSE: 2.0 - 3.0 Includes: PROPHYLAXIS forvenous thrombosis, systemic embolization; TREATMENT for venous thrombosis and/or pulmonary embolus.HIGH RISK: Target INR is 2.5-3.5 for patients with mechanical heart valves.CREATININE, RANDOM [id number] 04: 48:00 Test Item Value Reference Range Comments CREATININE URINE (BEAKER) (test szle=708) 115.9 mg/dL Reference Range: No NormalsPROTEIN, RANDOM [id number] 04:48:00 Test Item Value Reference Range Comments PROTEIN, URINE (BEAKER) (test rvnf=4507) 12 mg/dL 0-14 CBC W/PLT COUNT & AUTO [id number] 04:30:00 Test Item Value Reference Range Comments WHITE BLOOD CELL COUNT (BEAKER) (test nddu=826) 5.2 K/ L 3.5-10.5 RED BLOOD CELL COUNT (BEAKER) (test oktt=601) 3.58 M/ L 3.93-5.22 HEMOGLOBIN (BEAKER) (test atoy=984) 9.8 GM/DL 11.2-15.7 HEMATOCRIT (BEAKER) (test quto=911) 31.6 % 34.1-44.9 MEAN CORPUSCULAR VOLUME (BEAKER) (test hghd=596) 88.3 fL 79.4-94.8 MEAN CORPUSCULAR HEMOGLOBIN (BEAKER) (test 27.4 pg 25.6-32.2 ucin=479) MEAN CORPUSCULAR HEMOGLOBIN CONC (BEAKER) (test 31.0 GM/DL 32.2-35.5 rhgt=623) RED CELL DISTRIBUTION WIDTH (BEAKER) (test 14.4 % 11.7-14.4 irtj=328) PLATELET COUNT (BEAKER) (test wvcp=417) 173 K/CU MM 150-450 MEAN PLATELET VOLUME (BEAKER) (test quzz=168) 9.6 fL 9.4-12.3 NUCLEATED RED BLOOD CELLS (BEAKER) (test 0 /100 WBC 0-0 tceg=085) NEUTROPHILS RELATIVE PERCENT (BEAKER) (test 67 % qsya=609) LYMPHOCYTES RELATIVE PERCENT (BEAKER) (test 19 % dwsz=714) MONOCYTES RELATIVE PERCENT (BEAKER) (test 8 % etvn=301) EOSINOPHILS RELATIVE PERCENT (BEAKER) (test 5 % ekkd=979) BASOPHILS RELATIVE PERCENT (BEAKER) (test 1 % dqei=072) NEUTROPHILS ABSOLUTE COUNT (BEAKER) (test 3.43 K/ L 1.56-6.13 moqz=523) LYMPHOCYTES ABSOLUTE COUNT (BEAKER) (test 0.98 K/ L 1.18-3.74 adhi=946) MONOCYTES ABSOLUTE COUNT (BEAKER) (test 0.42 K/ L 0.24-0.36 srix=531) EOSINOPHILS ABSOLUTE COUNT (BEAKER) (test 0.26 K/ L 0.04-0.36 wwvk=594) BASOPHILS ABSOLUTE COUNT (BEAKER) (test 0.04 K/ L 0.01-0.08 agyg=636) IMMATURE GRANULOCYTES-RELATIVE PERCENT (BEAKER) 0 % 0-1 (test yqda=4669) U/S, ABDOMINAL, WITH [id number] 03:48:00Reason for exam:->TIPS workup , assess for [...] MDReport Verified Date/Time: 02/18/2019 03:48:21 Reading Location: [address] Neuro Reading Room Electronically signed by: Se SCHNEIDER 2018 03:48 AMPOCT-GLUCOSE [id number] 00:28:00 Test Item Value Reference Range Comments POC-GLUCOSE METER (BEAKER) 330 mg/dL 70-110 Will Repeat Test/TESTED AT (test bgjw=4522) [facility] [address] [facility] [address] BODY FLUID CELL COUNT WITH [id number] 18:02:00 Test Item Value Reference Range Comments APPEARANCE FLUID (BEAKER) (test azdn=057) Clear Clear COLOR FLUID (BEAKER) (test uhho=816) Yellow Colorless, Straw RBC FLUID (BEAKER) (test rxbp=533) 20 /cu mm <=1 ADJUSTED WBC FLUID (BEAKER) (test lqvc=7578) 50 /cu mm <=5 LINING CELLS (BEAKER) (test qunz=9433) 0 /cu mm <=1 NEUTROPHILS FLUID (BEAKER) (test yosh=0398) 1 % LYMPHS FLUID (BEAKER) (test wumg=641) 38 % MONO/MACROPHAGE FLUID (BEAKER) (test lhrt=972) 61 % EOSINOPHILS FLUID (BEAKER) (test grlm=063) 0 % BASO FLUID (BEAKER) (test qqwj=516) 0 % CONTAINER BODY FLUID (BEAKER) (test dsjb=5677) EDTA Tube U/S, [id number] 16:30:00limit volume to 8 LReason for exam:-> [...] MDReport Verified Date/Time: 02/17 16:30:42 Reading Location: [address] Ultrasound Reading Room POCT-GLUCOSE [id number] 09:48:00 Test Item Value Reference Range Comments POC-GLUCOSE METER (BEAKER) 198 mg/dL 70-110 TESTED AT [address] (test ofzt=3918) [facility] [address] BASIC METABOLIC [id number] 06:30:00 Test Item Value Reference Range Comments SODIUM (BEAKER) (test 137 meq/L 136-145 vjmd=924) POTASSIUM (BEAKER) (test 4.5 meq/L 3.5-5.1 mlcm=485) CHLORIDE (BEAKER) (test 107 meq/L 98-107 nqnu=177) CO2 (BEAKER) (test 24 meq/L 22-29 mryz=951) BLOOD UREA NITROGEN 41 mg/dL 7-21 (BEAKER) (test wsjg=174) CREATININE (BEAKER) (test 1.48 mg/dL 0.57-1.25 zajf=098) GLUCOSE RANDOM (BEAKER) 200 mg/dL 70-105 (test ibut=316) CALCIUM (BEAKER) (test 8.9 mg/dL 8.4-10.2 eyfc=379) EGFR (BEAKER) (test 36 mL/min/1.73 sq m ESTIMATED GFR IS NOT fxrr=8822) ACCURATE CREATININE CLEARANCE IN PREDICTING GLOMERULAR FILTRATION RATE. ESTIMATED GFR IS NOT APPLICABLE FOR DIALYSIS PATIENTS. POCT-GLUCOSE [id number] 17:31:00 Test Item Value Reference Range Comments POC-GLUCOSE METER (BEAKER) 165 mg/dL 70-110 TESTED AT [facility] [address] [facility] (test irzb=1093) [facility] [address] U/S, [id number] 16:00:00Reason for exam:->ascites SOBFINAL REPORT PROCEDURE: Ultrasound-guided paracentesis. INDICATION: Ascites. DESCRIPTION: This paracentesis was performed by Lesley Parnell under the direct supervision of Thomas Hendrix. After obtaining informed written consent, ultrasound scan of the abdomen identified ascites in the right lower quadrant. The overlying skin was prepped and draped in the usual, sterile fashion andlocal 2% lidocaine anesthesia was administered. A 5 Mongolian catheter was advanced into the peritonealcavity and 6000 mL of clear yellow fluid was removed. The catheter was removed without immediate complication. Samples were sent for analysis. IMPRESSION: Uncomplicated ultrasound-guided paracentesis with 6000 mL fluid removed. Signed: Thomas Hendrix [facility] Verified Date/Time: 16:00:46 Reading Location: [address] Ultrasound Reading Room BODY FLUID CELL COUNT WITH [id number] 15:52:00 Test Item Value Reference Range Comments APPEARANCE FLUID (BEAKER) (test qvxk=590) Clear Clear COLOR FLUID (BEAKER) (test xaqz=984) Yellow Colorless, Straw RBC FLUID (BEAKER) (test rtpo=484) 10 /cu mm <=1 ADJUSTED WBC FLUID (BEAKER) (test kbcn=1247) 80 /cu mm <=5 LINING CELLS (BEAKER) (test fofi=2509) 0 /cu mm <=1 NEUTROPHILS FLUID (BEAKER) (test fwzj=8474) 5 % LYMPHS FLUID (BEAKER) (test bfhs=883) 35 % MONO/MACROPHAGE FLUID (BEAKER) (test lsnm=627) 59 % EOSINOPHILS FLUID (BEAKER) (test tgmn=395) 1 % BASO FLUID (BEAKER) (test rsrc=879) 0 % CONTAINER BODY FLUID (BEAKER) (test uwrc=1627) EDTA Tube BASIC METABOLIC [id number] 07:28:00 Test Item Value Reference Range Comments SODIUM (BEAKER) (test 134 meq/L 136-145 tyoq=092) POTASSIUM (BEAKER) (test 5.0 meq/L 3.5-5.1 vqyo=542) CHLORIDE (BEAKER) (test 107 meq/L 98-107 xghi=631) CO2 (BEAKER) (test 22 meq/L 22-29 zyld=859) BLOOD UREA NITROGEN 46 mg/dL 7-21 (BEAKER) (test aovw=534) CREATININE (BEAKER) (test 1.61 mg/dL 0.57-1.25 qnge=872) GLUCOSE RANDOM (BEAKER) 220 mg/dL 70-105 (test sieu=888) CALCIUM (BEAKER) (test 9.0 mg/dL 8.4-10.2 tikv=032) EGFR (BEAKER) (test 33 mL/min/1.73 sq m ESTIMATED GFR IS NOT meyy=6096) ACCURATE CREATININE CLEARANCE IN PREDICTING GLOMERULAR FILTRATION RATE. ESTIMATED GFR IS NOT APPLICABLE FOR DIALYSIS PATIENTS. HEPATIC FUNCTION [id number] 07:28:00 Test Item Value Reference Range Comments TOTAL PROTEIN (BEAKER) (test iccf=259) 5.9 gm/dL 6.0-8.3 ALBUMIN (BEAKER) (test tqcc=3707) 3.0 g/dL 3.5-5.0 BILIRUBIN TOTAL (BEAKER) (test wyrn=374) 0.6 mg/dL 0.2-1.2 BILIRUBIN DIRECT (BEAKER) (test guld=939) 0.3 mg/dL 0.1-0.5 ALKALINE PHOSPHATASE (BEAKER) (test npyu=764) 154 U/L 40-150 AST (SGOT) (BEAKER) (test bibk=518) 22 U/L 5-34 ALT (SGPT) (BEAKER) (test zafk=915) 12 U/L 6-55 [id number] 07:27:00 Test Item Value Reference Range Comments MAGNESIUM (BEAKER) (test gioi=437) 2.2 mg/dL 1.6-2.6 CBC W/PLT COUNT & AUTO [id number] 07:06:00 Test Item Value Reference Range Comments WHITE BLOOD CELL COUNT (BEAKER) (test eefp=818) 6.2 K/ L 3.5-10.5 RED BLOOD CELL COUNT (BEAKER) (test kgwl=020) 3.62 M/ L 3.93-5.22 HEMOGLOBIN (BEAKER) (test blbu=735) 9.8 GM/DL 11.2-15.7 HEMATOCRIT (BEAKER) (test qafv=708) 31.4 % 34.1-44.9 MEAN CORPUSCULAR VOLUME (BEAKER) (test kpfv=782) 86.7 fL 79.4-94.8 MEAN CORPUSCULAR HEMOGLOBIN (BEAKER) (test 27.1 pg 25.6-32.2 fuiq=215) MEAN CORPUSCULAR HEMOGLOBIN CONC (BEAKER) (test 31.2 GM/DL 32.2-35.5 jjvo=671) RED CELL DISTRIBUTION WIDTH (BEAKER) (test 14.5 % 11.7-14.4 atxb=096) PLATELET COUNT (BEAKER) (test mnuw=742) 198 K/CU MM 150-450 MEAN PLATELET VOLUME (BEAKER) (test vkvh=969) 9.8 fL 9.4-12.3 NUCLEATED RED BLOOD CELLS (BEAKER) (test 0 /100 WBC 0-0 opur=568) NEUTROPHILS RELATIVE PERCENT (BEAKER) (test 64 % rwoi=691) LYMPHOCYTES RELATIVE PERCENT (BEAKER) (test 22 % fuhj=059) MONOCYTES RELATIVE PERCENT (BEAKER) (test 9 % pcif=692) EOSINOPHILS RELATIVE PERCENT (BEAKER) (test 5 % gozn=849) BASOPHILS RELATIVE PERCENT (BEAKER) (test 1 % zsel=897) NEUTROPHILS ABSOLUTE COUNT (BEAKER) (test 3.93 K/ L 1.56-6.13 cyav=587) LYMPHOCYTES ABSOLUTE COUNT (BEAKER) (test 1.35 K/ L 1.18-3.74 nnxl=280) MONOCYTES ABSOLUTE COUNT (BEAKER) (test 0.53 K/ L 0.24-0.36 yvdp=367) EOSINOPHILS ABSOLUTE COUNT (BEAKER) (test 0.28 K/ L 0.04-0.36 fhwy=506) BASOPHILS ABSOLUTE COUNT (BEAKER) (test 0.05 K/ L 0.01-0.08 lztk=436) IMMATURE GRANULOCYTES-RELATIVE PERCENT (BEAKER) 1 % 0-1 (test pksn=9923) [id number] 06:49:00 Test Item Value Reference Range Comments PROTIME (BEAKER) (test mhmd=882) 13.4 seconds 11.7-14.7 INR (BEAKER) (test pawq=668) 1.0 <=5.9 PARTIAL THROMBOPLASTIN TIME (BEAKER) (test 30.9 seconds 22.5-36.0 uzww=231) RECOMMENDED COUMADIN/WARFARIN INR THERAPY RANGESSTANDARD DOSE: 2.0 - 3.0 Includes: PROPHYLAXIS forvenous thrombosis, systemic embolization; TREATMENT for venous thrombosis and/or pulmonary embolus.HIGH RISK: Target INR is 2.5-3.5 for patients with mechanical heart valves.URINALYSIS W/ REFLEX URINE [id number] 05:32:00 Test Item Value Reference Range Comments COLOR (BEAKER) (test lbqu=320) Yellow CLARITY (BEAKER) (test frnp=228) Hazy SPECIFIC GRAVITY UA (BEAKER) (test bxig=822) 1.021 1.001-1.035 PH UA (BEAKER) (test gqph=969) 5.5 5.0-8.0 PROTEIN UA (BEAKER) (test weeu=094) 30 mg/dL Negative GLUCOSE UA (BEAKER) (test hakc=303) Negative Negative KETONES UA (BEAKER) (test sfob=198) Negative Negative BILIRUBIN UA (BEAKER) (test vlxc=511) Negative Negative BLOOD UA (BEAKER) (test ehsp=357) Negative Negative NITRITE UA (BEAKER) (test dpam=583) Negative Negative LEUKOCYTE ESTERASE UA (BEAKER) (test nudh=995) Large Negative UROBILINOGEN UA (BEAKER) (test moqh=873) 2.0 mg/dL 0.2-1.0 RBC UA (BEAKER) (test fbbc=803) 7 /HPF WBC UA (BEAKER) (test mshs=013) 7 /HPF MUCUS (BEAKER) (test dgzf=3598) Rare SQUAMOUS EPITHELIAL (BEAKER) (test kuvx=988) 6 /HPF HYALINE CASTS (BEAKER) (test cqpe=207) 40 /LPF SOURCE(BEAKER) (test zioh=6473) POCT-GLUCOSE [id number] 05:00:00 Test Item Value Reference Range Comments POC-GLUCOSE METER (BEAKER) 227 mg/dL 70-110 TESTED AT [facility] [address] [facility] (test wqsj=5611) [facility] [address] ALPHA FETOPROTEIN (AFP), TUMOR [id number] 15:55:00 Test Item Value Reference Range Comments ALPHA-FETOPROTEIN (BEAKER) (test njhu=4094) 3.4 ng/mL <10.0 BASIC METABOLIC [id number] 15:40:00 Test Item Value Reference Range Comments SODIUM (BEAKER) (test 133 meq/L 136-145 alrc=878) POTASSIUM (BEAKER) (test 4.8 meq/L 3.5-5.1 awzy=925) CHLORIDE (BEAKER) (test 101 meq/L 98-107 mnuu=170) CO2 (BEAKER) (test 23 meq/L 22-29 bycs=080) BLOOD UREA NITROGEN 37 mg/dL 7-21 (BEAKER) (test vwye=897) CREATININE (BEAKER) (test 2.17 mg/dL 0.57-1.25 ghgv=133) GLUCOSE RANDOM (BEAKER) 191 mg/dL 70-105 (test bier=065) CALCIUM (BEAKER) (test 9.2 mg/dL 8.4-10.2 xhoz=619) EGFR (BEAKER) (test 23 mL/min/1.73 sq m ESTIMATED GFR IS NOT lulo=8180) ACCURATE CREATININE CLEARANCE IN PREDICTING GLOMERULAR FILTRATION RATE. ESTIMATED GFR IS NOT APPLICABLE FOR DIALYSIS PATIENTS. HEPATIC FUNCTION [id number] 15:38:00 Test Item Value Reference Range Comments TOTAL PROTEIN (BEAKER) (test lmru=888) 6.9 gm/dL 6.0-8.3 ALBUMIN (BEAKER) (test uidf=1611) 3.7 g/dL 3.5-5.0 BILIRUBIN TOTAL (BEAKER) (test zguw=130) 0.8 mg/dL 0.2-1.2 BILIRUBIN DIRECT (BEAKER) (test nwld=748) 0.3 mg/dL 0.1-0.5 ALKALINE PHOSPHATASE (BEAKER) (test czvz=862) 95 U/L 40-150 AST (SGOT) (BEAKER) (test yskj=832) 24 U/L 5-34 ALT (SGPT) (BEAKER) (test uwhs=927) 14 U/L 6-55 PROTHROMBIN [id number] 15:29:00 Test Item Value Reference Range Comments PROTIME (BEAKER) (test voty=987) 12.8 seconds 11.7-14.7 INR (BEAKER) (test yzfv=170) 1.0 <=5.9 RECOMMENDED COUMADIN/WARFARIN INR THERAPY RANGESSTANDARD DOSE: 2.0 - 3.0 Includes: PROPHYLAXIS forvenous thrombosis, systemic embolization; TREATMENT for venous thrombosis and/or pulmonary embolus.HIGH RISK: Target INR is 2.5-3.5 for patients with mechanical heart valves.CBC W/PLT COUNT & AUTO [id number] 15:17:00 Test Item Value Reference Range Comments WHITE BLOOD CELL COUNT (BEAKER) (test pewt=980) 7.8 K/ L 3.5-10.5 RED BLOOD CELL COUNT (BEAKER) (test yksw=756) 4.49 M/ L 3.93-5.22 HEMOGLOBIN (BEAKER) (test aggb=797) 12.4 GM/DL 11.2-15.7 HEMATOCRIT (BEAKER) (test sozb=681) 39.1 % 34.1-44.9 MEAN CORPUSCULAR VOLUME (BEAKER) (test zyha=545) 87.1 fL 79.4-94.8 MEAN CORPUSCULAR HEMOGLOBIN (BEAKER) (test 27.6 pg 25.6-32.2 wlnl=581) MEAN CORPUSCULAR HEMOGLOBIN CONC (BEAKER) (test 31.7 GM/DL 32.2-35.5 iuva=888) RED CELL DISTRIBUTION WIDTH (BEAKER) (test 14.0 % 11.7-14.4 vswf=885) PLATELET COUNT (BEAKER) (test fqfw=431) 196 K/CU MM 150-450 MEAN PLATELET VOLUME (BEAKER) (test ymfu=076) 9.9 fL 9.4-12.3 NUCLEATED RED BLOOD CELLS (BEAKER) (test 0 /100 WBC 0-0 iavo=641) NEUTROPHILS RELATIVE PERCENT (BEAKER) (test 72 % ewoj=595) LYMPHOCYTES RELATIVE PERCENT (BEAKER) (test 18 % yarj=914) MONOCYTES RELATIVE PERCENT (BEAKER) (test 6 % psde=274) EOSINOPHILS RELATIVE PERCENT (BEAKER) (test 4 % ffva=671) BASOPHILS RELATIVE PERCENT (BEAKER) (test 1 % ymyg=580) NEUTROPHILS ABSOLUTE COUNT (BEAKER) (test 5.62 K/ L 1.56-6.13 ofvh=015) LYMPHOCYTES ABSOLUTE COUNT (BEAKER) (test 1.37 K/ L 1.18-3.74 sprz=602) MONOCYTES ABSOLUTE COUNT (BEAKER) (test 0.43 K/ L 0.24-0.36 oryu=385) EOSINOPHILS ABSOLUTE COUNT (BEAKER) (test 0.28 K/ L 0.04-0.36 ajwy=576) BASOPHILS ABSOLUTE COUNT (BEAKER) (test 0.07 K/ L 0.01-0.08 xepo=530) IMMATURE GRANULOCYTES-RELATIVE PERCENT (BEAKER) 0 % 0-1 (test ixma=3924) ANTI-MITOCHONDRIAL AB, REFLEX TO [id number] 08:36:00 Test Item Value Reference Range Comments SCAN RESULT (test eagk=[id number]) OSMOLALITY, [id number] 10:30:00 Test Item Value Reference Range Comments OSMOLALITY, SERUM (BEAKER) (test smyb=337) 301 mOsm/kg 275-295 POCT-GLUCOSE [id number] 08:26:00 Test Item Value Reference Range Comments POC-GLUCOSE METER (BEAKER) 243 mg/dL 70-110 TESTED AT [address] (test fziz=2729) [facility] [id number] COMPREHENSIVE METABOLIC [id number] 08:05:00 Test Item Value Reference Range Comments TOTAL PROTEIN (BEAKER) 5.5 gm/dL 6.0-8.3 (test xlki=070) ALBUMIN (BEAKER) (test 3.2 g/dL 3.5-5.0 kgbs=9277) ALKALINE PHOSPHATASE 75 U/L 40-150 (BEAKER) (test fgmi=693) BILIRUBIN TOTAL (BEAKER) 0.9 mg/dL 0.2-1.2 (test dvqd=484) SODIUM (BEAKER) (test 132 meq/L 136-145 lgcw=413) POTASSIUM (BEAKER) (test 4.3 meq/L 3.5-5.1 vlgp=508) CHLORIDE (BEAKER) (test 101 meq/L 98-107 tcij=439) CO2 (BEAKER) (test 25 meq/L 22-29 ssab=309) BLOOD UREA NITROGEN 45 mg/dL 7-21 (BEAKER) (test gnub=880) CREATININE (BEAKER) (test 1.89 mg/dL 0.57-1.25 lbig=661) GLUCOSE RANDOM (BEAKER) 241 mg/dL 70-105 (test bdnj=922) CALCIUM (BEAKER) (test 8.6 mg/dL 8.4-10.2 llvn=994) AST (SGOT) (BEAKER) (test 19 U/L 5-34 wokl=340) ALT (SGPT) (BEAKER) (test 10 U/L 6-55 rmfl=153) EGFR (BEAKER) (test 27 mL/min/1.73 sq m ESTIMATED GFR IS NOT fwyf=0771) ACCURATE CREATININE CLEARANCE IN PREDICTING GLOMERULAR FILTRATION RATE. ESTIMATED GFR IS NOT APPLICABLE FOR DIALYSIS PATIENTS. [id number] 08:02:00 Test Item Value Reference Range Comments PHOSPHORUS (BEAKER) (test objq=751) 3.6 mg/dL 2.3-4.7 [id number] 08:02:00 Test Item Value Reference Range Comments MAGNESIUM (BEAKER) (test keaa=506) 2.0 mg/dL 1.6-2.6 CBC W/PLT COUNT & AUTO [id number] 05:40:00 Test Item Value Reference Range Comments WHITE BLOOD CELL COUNT (BEAKER) (test yydy=639) 5.7 K/ L 3.5-10.5 RED BLOOD CELL COUNT (BEAKER) (test fcfd=072) 3.76 M/ L 3.93-5.22 HEMOGLOBIN (BEAKER) (test jrhr=894) 10.6 GM/DL 11.2-15.7 HEMATOCRIT (BEAKER) (test salp=492) 32.9 % 34.1-44.9 MEAN CORPUSCULAR VOLUME (BEAKER) (test vskg=911) 87.5 fL 79.4-94.8 MEAN CORPUSCULAR HEMOGLOBIN (BEAKER) (test 28.2 pg 25.6-32.2 plcf=458) MEAN CORPUSCULAR HEMOGLOBIN CONC (BEAKER) (test 32.2 GM/DL 32.2-35.5 paco=538) RED CELL DISTRIBUTION WIDTH (BEAKER) (test 14.2 % 11.7-14.4 wshj=269) PLATELET COUNT (BEAKER) (test xdsq=488) 142 K/CU MM 150-450 MEAN PLATELET VOLUME (BEAKER) (test zwgo=195) 9.8 fL 9.4-12.3 NUCLEATED RED BLOOD CELLS (BEAKER) (test 0 /100 WBC 0-0 yvnd=041) NEUTROPHILS RELATIVE PERCENT (BEAKER) (test 70 % vmho=638) LYMPHOCYTES RELATIVE PERCENT (BEAKER) (test 19 % hgty=681) MONOCYTES RELATIVE PERCENT (BEAKER) (test 7 % thdj=215) EOSINOPHILS RELATIVE PERCENT (BEAKER) (test 3 % xyie=762) BASOPHILS RELATIVE PERCENT (BEAKER) (test 1 % agte=866) NEUTROPHILS ABSOLUTE COUNT (BEAKER) (test 3.99 K/ L 1.56-6.13 mzad=608) LYMPHOCYTES ABSOLUTE COUNT (BEAKER) (test 1.05 K/ L 1.18-3.74 npkr=569) MONOCYTES ABSOLUTE COUNT (BEAKER) (test 0.40 K/ L 0.24-0.36 gkxw=378) EOSINOPHILS ABSOLUTE COUNT (BEAKER) (test 0.16 K/ L 0.04-0.36 glev=452) BASOPHILS ABSOLUTE COUNT (BEAKER) (test 0.04 K/ L 0.01-0.08 njxx=779) IMMATURE GRANULOCYTES-RELATIVE PERCENT (BEAKER) 0 % 0-1 (test gwyq=6495) CALCIUM, [id number] 05:17:00 Test Item Value Reference Range Comments CALCIUM IONIZED (BEAKER) (test mrfa=696) 1.06 mmol/L 1.12-1.27 PH, BLOOD (BEAKER) (test kjdd=8771) 7.41 U/S, RENAL, [id number] 03:59:00Reason for exam:->HEMALATHA/CKDShould this be performed at [...] Wilson Verified Date/Time: 11/24/2018 03:59:04 Reading Location: [address] Transitional Reading Room TROPONIN [id number] 23:19:00 Test Item Value Reference Range Comments TROPONIN I (BEAKER) (test yadn=972) < ng/mL 0.00-0.03 Troponin I (TnI) levels [...] acidosis, acute neurological disease, and persistent tachyarrhythmia.POCT-GLUCOSE [id number] 21:12:00 Test Item Value Reference Range Comments POC-GLUCOSE METER (BEAKER) 277 mg/dL 70-110 TESTED AT [address] (test aufb=7204) [facility] [place] [address] PROTEIN, RANDOM [id number] 20:11:00 Test Item Value Reference Range Comments PROTEIN, URINE (BEAKER) (test hbgp=6832) 10 mg/dL 0-14 SODIUM, RANDOM [id number] 20:05:00 Test Item Value Reference Range Comments SODIUM URINE (BEAKER) (test dcom=049) < meq/L Reference Range: No NormalsPOCT-GLUCOSE [id number] 17:28:00 Test Item Value Reference Range Comments POC-GLUCOSE METER (BEAKER) 291 mg/dL 70-110 TESTED AT [address] (test bivx=8075) [facility] [place] [address] POCT-GLUCOSE [id number] 14:02:00 Test Item Value Reference Range Comments POC-GLUCOSE METER (BEAKER) 148 mg/dL 70-110 TESTED AT [facility] [address] [facility] (test pyev=2803) [facility] [place] [address] URINALYSIS W/ [id number] 13:32:00 Test Item Value Reference Range Comments COLOR (BEAKER) (test unaa=368) Yellow CLARITY (BEAKER) (test zzfb=854) Clear SPECIFIC GRAVITY UA (BEAKER) (test 1.015 1.001-1.035 lrri=192) PH UA (BEAKER) (test ohiw=029) 5.0 5.0-8.0 PROTEIN UA (BEAKER) (test sris=442) Negative Negative GLUCOSE UA (BEAKER) (test wmak=190) Negative Negative KETONES UA (BEAKER) (test kpfr=102) Negative Negative BILIRUBIN UA (BEAKER) (test woiw=796) Negative Negative BLOOD UA (BEAKER) (test qtqm=722) Negative Negative NITRITE UA (BEAKER) (test nrva=222) Negative Negative LEUKOCYTE ESTERASE UA (BEAKER) (test Negative Negative dazg=313) UROBILINOGEN UA (BEAKER) (test pkmn=871) 0.2 mg/dL 0.2-1.0 RBC UA (BEAKER) (test iahm=517) < /HPF WBC UA (BEAKER) (test ncvq=228) 2 /HPF BACTERIA (BEAKER) (test bvuv=262) Occasional SQUAMOUS EPITHELIAL (BEAKER) (test 19 /HPF wiap=518) HYALINE CASTS (BEAKER) (test zlmc=368) 5 /LPF AMORPHOUS CRYSTALS (BEAKER) (test Occasional zeuo=0718) SOURCE(BEAKER) (test idkj=7143) Urine, Clean Catch U/S, ABDOMINAL, [id number] 13:29:00Abdomen limited area? Add comment if clarification [...] Valles Verified Date/Time: 11/23/2018 13:29:13 Reading Location: [address] Transitional Reading Room U/S, [id number] 13:01:00Reason for exam:->Therapeutic paracentesisFINAL REPORT Paracentesis dated 11/23/2018 Procedure: Ultrasound-guided paracentesis. Preprocedure diagnosis: Ascites Postprocedure diagnosis: Ascites Conscious sedation: None. Radiologist: Giovanni Haas M.D. Entry Level Sales Representative: None Anesthesia: 1% Xylocaine mixed with sodium [...] Date/Time: 11/23/2018 13:01:25 Reading Location: [facility] [id number] Ortho Consult Reading Room Electronically signedby: GIOVANNI HAAS M.D. on 2018 01:01 PMCBC W/PLT COUNT & AUTO [id number] 08:55:00 Test Item Value Reference Range Comments WHITE BLOOD CELL COUNT (BEAKER) (test hnlv=905) 5.7 K/ L 3.5-10.5 RED BLOOD CELL COUNT (BEAKER) (test ugiz=015) 3.72 M/ L 3.93-5.22 HEMOGLOBIN (BEAKER) (test xdfa=992) 10.5 GM/DL 11.2-15.7 HEMATOCRIT (BEAKER) (test mgbl=761) 32.5 % 34.1-44.9 MEAN CORPUSCULAR VOLUME (BEAKER) (test koio=736) 87.4 fL 79.4-94.8 MEAN CORPUSCULAR HEMOGLOBIN (BEAKER) (test 28.2 pg 25.6-32.2 azby=607) MEAN CORPUSCULAR HEMOGLOBIN CONC (BEAKER) (test 32.3 GM/DL 32.2-35.5 lzah=859) RED CELL DISTRIBUTION WIDTH (BEAKER) (test 14.5 % 11.7-14.4 embu=944) PLATELET COUNT (BEAKER) (test kiag=307) 148 K/CU MM 150-450 MEAN PLATELET VOLUME (BEAKER) (test nbsn=618) 9.4 fL 9.4-12.3 NUCLEATED RED BLOOD CELLS (BEAKER) (test 0 /100 WBC 0-0 jgno=680) NEUTROPHILS RELATIVE PERCENT (BEAKER) (test 63 % cdvr=957) LYMPHOCYTES RELATIVE PERCENT (BEAKER) (test 23 % nvgn=611) MONOCYTES RELATIVE PERCENT (BEAKER) (test 8 % lznl=621) EOSINOPHILS RELATIVE PERCENT (BEAKER) (test 5 % yoku=349) BASOPHILS RELATIVE PERCENT (BEAKER) (test 1 % dfsb=289) NEUTROPHILS ABSOLUTE COUNT (BEAKER) (test 3.61 K/ L 1.56-6.13 boaz=207) LYMPHOCYTES ABSOLUTE COUNT (BEAKER) (test 1.29 K/ L 1.18-3.74 pmhq=341) MONOCYTES ABSOLUTE COUNT (BEAKER) (test 0.47 K/ L 0.24-0.36 anqz=321) EOSINOPHILS ABSOLUTE COUNT (BEAKER) (test 0.28 K/ L 0.04-0.36 tczl=364) BASOPHILS ABSOLUTE COUNT (BEAKER) (test 0.05 K/ L 0.01-0.08 qary=387) IMMATURE GRANULOCYTES-RELATIVE PERCENT (BEAKER) 0 % 0-1 (test ohqv=5217) POCT-GLUCOSE [id number] 07:43:00 Test Item Value Reference Range Comments POC-GLUCOSE METER (BEAKER) 196 mg/dL 70-110 TESTED AT [facility] [address] [facility] (test byyl=7850) [facility] [place] [address] [id number] 06:53:00 Test Item Value Reference Range Comments FERRITIN (BEAKER) (test aemb=992) 52 ng/mL 5-275 HEPATITIS B [id number] 06:21:00 Test Item Value Reference Range Comments HEPATITIS B CORE TOTAL ANTIBODY (BEAKER) (test Nonreactive Nonreactive yzuz=982) HEPATITIS B SURFACE ANTIBODY (BEAKER) (test < mIU/mL <8.0 dbof=918) HEPATITIS B SURFACE ANTIGEN (2) (BEAKER) (test Nonreactive Nonreactive pqsr=0155) HEPATITIS C [id number] 06:20:00 Test Item Value Reference Range Comments HEPATITIS C ANTIBODY (BEAKER) (test ksuv=704) Nonreactive Nonreactive HEPATITIS A [id number] 06:20:00 Test Item Value Reference Range Comments HEPATITIS A IGM ANTIBODY (BEAKER) (test Nonreactive Nonreactive knwv=682) HEPATITIS A IGG ANTIBODY (BEAKER) (test Nonreactive Nonreactive wtwr=0550) ALPHA FETOPROTEIN (AFP), TUMOR [id number] 06:14:00 Test Item Value Reference Range Comments ALPHA-FETOPROTEIN (BEAKER) (test uuka=0445) 2.1 ng/mL <10.0 COMPREHENSIVE METABOLIC [id number] 06:01:00 Test Item Value Reference Range Comments TOTAL PROTEIN (BEAKER) 5.9 gm/dL 6.0-8.3 (test xbst=283) ALBUMIN (BEAKER) (test 2.9 g/dL 3.5-5.0 fhdg=0004) ALKALINE PHOSPHATASE 96 U/L 40-150 (BEAKER) (test dvco=167) BILIRUBIN TOTAL (BEAKER) 0.5 mg/dL 0.2-1.2 (test mmtz=393) SODIUM (BEAKER) (test 132 meq/L 136-145 susr=591) POTASSIUM (BEAKER) (test 4.3 meq/L 3.5-5.1 rsgu=323) CHLORIDE (BEAKER) (test 100 meq/L 98-107 bdrc=811) CO2 (BEAKER) (test 26 meq/L 22-29 pkli=012) BLOOD UREA NITROGEN 50 mg/dL 7-21 (BEAKER) (test klsv=380) CREATININE (BEAKER) (test 2.27 mg/dL 0.57-1.25 dgxw=758) GLUCOSE RANDOM (BEAKER) 219 mg/dL 70-105 (test pxgq=526) CALCIUM (BEAKER) (test 8.8 mg/dL 8.4-10.2 xxun=483) AST (SGOT) (BEAKER) (test 22 U/L 5-34 pjrk=232) ALT (SGPT) (BEAKER) (test 15 U/L 6-55 zlmd=206) EGFR (BEAKER) (test 22 mL/min/1.73 sq m ESTIMATED GFR IS NOT pldr=9155) ACCURATE CREATININE CLEARANCE IN PREDICTING GLOMERULAR FILTRATION RATE. ESTIMATED GFR IS NOT APPLICABLE FOR DIALYSIS PATIENTS. IRON, TIBC, % SAT. (WITHOUT FERRITIN)2018-11-23 05:55:00 Test Item Value Reference Range Comments IRON (BEAKER) (test efmp=085) 46.0 ug/dL 40.0-160.0 TOTAL IRON BINDING CAPACITY (BEAKER) (test 269 ug/dL 250-450 glhc=771) IRON % SATURATION (2) (BEAKER) (test stev=1844) 17 % 20-55 [id number] 05:54:00 Test Item Value Reference Range Comments ALPHA-1 ANTITRYPSIN (BEAKER) (test nyvw=142) 202.70 mg/dL 90.00-200.00 COMPREHENSIVE METABOLIC [id number] 00:16:00 Test Item Value Reference Range Comments TOTAL PROTEIN (BEAKER) 6.8 gm/dL 6.0-8.3 (test wkrn=368) ALBUMIN (BEAKER) (test 3.3 g/dL 3.5-5.0 oeyi=5630) ALKALINE PHOSPHATASE 114 U/L 40-150 (BEAKER) (test hphu=835) BILIRUBIN TOTAL (BEAKER) 0.6 mg/dL 0.2-1.2 (test dlsm=756) SODIUM (BEAKER) (test 130 meq/L 136-145 fonn=058) POTASSIUM (BEAKER) (test 4.4 meq/L 3.5-5.1 wvao=123) CHLORIDE (BEAKER) (test 99 meq/L 98-107 hper=169) CO2 (BEAKER) (test 22 meq/L 22-29 yngj=678) BLOOD UREA NITROGEN 46 mg/dL 7-21 (BEAKER) (test vcnu=172) CREATININE (BEAKER) (test 2.40 mg/dL 0.57-1.25 mexn=118) GLUCOSE RANDOM (BEAKER) 153 mg/dL 70-105 (test yrgb=600) CALCIUM (BEAKER) (test 9.1 mg/dL 8.4-10.2 yfve=925) AST (SGOT) (BEAKER) (test 25 U/L 5-34 pylc=341) ALT (SGPT) (BEAKER) (test 17 U/L 6-55 cjzh=718) EGFR (BEAKER) (test 21 mL/min/1.73 sq m ESTIMATED GFR IS NOT ozzm=7361) ACCURATE CREATININE CLEARANCE IN PREDICTING GLOMERULAR FILTRATION RATE. ESTIMATED GFR IS NOT APPLICABLE FOR DIALYSIS PATIENTS. [id number] 23:52:00 Test Item Value Reference Range Comments PROTIME (BEAKER) (test nxjn=778) 13.3 seconds 11.7-14.7 INR (BEAKER) (test glqt=036) 1.0 <=5.9 PARTIAL THROMBOPLASTIN TIME (BEAKER) (test 26.9 seconds 22.5-36.0 cptc=697) RECOMMENDED COUMADIN/WARFARIN INR THERAPY RANGESSTANDARD DOSE: 2.0 - 3.0 Includes: PROPHYLAXIS forvenous thrombosis, systemic embolization; TREATMENT for venous thrombosis and/or pulmonary embolus.HIGH RISK: Target INR is 2.5-3.5 for patients with mechanical heart valves.POCT-GLUCOSE [id number] 21:25:00 Test Item Value Reference Range Comments POC-GLUCOSE METER (BEAKER) 178 mg/dL 70-110 TESTED AT [facility] [address] [facility] (test khxm=8634) [facility] [place] [address]
[2019-09-29] MEDS ORDERED: LORazepam 2 MG/ML VIAL ONE ×2 (01:15→02:14)
[2019-09-29 01:43] LABS: Absolute Lymphocytes (CBC) 1.2 K/uL (0.7-4.9); Basophils % 1.2 % (0-1.3); Hematocrit 23.8 % (36.0-45.0); Lymphocytes % 23.4 % (15.3-44.8); MPV 7.5 fL (7.6-11.3); RBC Red Blood Cell Count 2.86 M/uL (3.86-4.86)
[2019-09-29 01:46] LABS: Protime INR 1.03
[2019-09-29 02:00] LABS: Albumin 2.7 g/dL (3.4-5.0); Bilirubin Direct 0.4 mg/dL (0-0.2); Bilirubin Total 1.5 mg/dL (0.2-1.0); CKMB Creatine Kinase MB 6.8 ng/mL (0.3-3.6); Potassium 3.6 mmol/L (3.5-5.1); Protein, Total 6.5 g/dL (6.4-8.2); Troponin (Emerg Dept Use Only) 0.48 ng/mL (0.0-0.045)
--- NOTE | 2019-09-29 02:11 | ER ---
Nurse's Notes [facility] Name: Dee Maciel Age: 59 yrs Sex: Female : 1960 Arrival Date: 09/29/2019 Time: 00:55 Bed 3 Private MD: Diagnosis: Hepatic encephalopathy;Hyperammonemia Presentation: 09/29 00:45 Acuity: ASAF 3 fc 00:45 Presenting complaint: EMS states: that pt was found on floor by confused and fc incontinent of urine. Transition of care: patient was not received from another setting of care. Onset of symptoms was September 29, 2019. Risk Assessment: Do you want to hurt yourself or someone else? Patient reports no desire to harm self or others. Initial Sepsis Screen: Does the patient meet any 2 criteria? No. Patient's initial sepsis screen is negative. Does the patient have a suspected source of infection? No. Patient's initial sepsis screen is negative. Care prior to arrival: Glucose check: 359. 00:45 Method Of Arrival: EMS: [facility] Historical: - Allergies: 01:03 No Known Allergies; fc - Home Meds: 01:03 levothyroxine 200 mcg tab 1 tab once daily [Active]; spironolactone 50 mg oral tab 1 fc tab once daily [Active]; torsemide 20 mg oral tab 1 tab once daily [Active]; omeprazole 20 mg Oral cpDR 1 cap once daily [Active]; gabapentin 100 mg Oral cap 2 caps nightly [Active]; sertraline 50 mg Oral tab 1 tab once daily [Active]; simvastatin 20 mg Oral tab 1 tab once daily [Active]; lactulose 10 gram/15 mL (15 mL) Oral soln 30 mL twice a day [Active]; basagler [Active]; Novolog 100 unit/mL Sub-Q soln [Active]; - PMHx: 01:03 Diabetes - NIDDM; Hypothyroidism; WYNN liver; kidney problems; Depression; Anxiety; fc - PSHx: 01:03 paracentesis; fc - Immunization history:: Last tetanus immunization: up to date Flu vaccine is up to date. - Social history:: Smoking status: Patient/guardian denies using tobacco, Patient/guardian denies using alcohol, street drugs. - Ebola Screening: : Patient negative for fever greater than or equal to 101.5 degrees Fahrenheit, and additional compatible Ebola Virus Disease symptoms Patient denies exposure to infectious person Patient denies travel to an Ebola-affected area in the 21 days before illness onset. Screenin:45 Abuse screen: Denies threats or abuse. Nutritional screening: No deficits noted. fc Tuberculosis screening: No symptoms or risk factors identified. Fall Risk Fall in past 12 months (25 points). Secondary diagnosis (15 points) impaired mobility, No IV (0 pts). Ambulatory Aid- Crutches/Cane/Walker (15 pts). Gait- Weak (10 pts.). Mental Status- Overestimates/Forgets Limitations (15 pts.). Total Banda Fall Scale indicates High Risk Score (45 or more points). Fall prevention measures have been instituted. Side Rails Up X 2 Placed Close to Nursing Station Frequent Obs/Assessments Occuring As available patient and family educated on Fall Prevention Program and Strategies. Assessment: 00:55 General: Appears obese, unkempt, Behavior is anxious, combative. Pain: Unable to use ea pain scale. FLACC scale score is 2 out of 10. Neuro: Level of Consciousness is confused. Cardiovascular: Patient's skin is warm and dry. Respiratory: Airway is patent Respiratory effort is even, unlabored, Respiratory pattern is regular, symmetrical. Derm: Skin is dry, Skin temperature is warm multiple scabbed areas on trunk, panfilo arms and legs, EMS reported she was noted to be picking at various areas. 01:55 Reassessment: Patient and/or family updated on plan of care and expected duration. Pain ea level reassessed. pt resting with eyes closed, respirations even and unlabored. Chest expansions even and unlabored. Chest expansions even and symmetrical. 02:50 Reassessment: Patient and/or family updated on plan of care and expected duration. Pain ea level reassessed. Pt resting with eyes closed, respirations even and unlabored, chest expansions even and symmetrical. No s/s of pain or discomfort noted at this time. 03:58 Reassessment: Patient and/or family updated on plan of care and expected duration. Pain ea level reassessed. Pt resting with eyes closed, respirations even and unlabored. Chest expansions even and symmetrical. Pt admitted to ICU, pt left ED via stretcher, pt tolerating well. No s/s of pain or discomfort noted at this time. Vital Signs: 00:45 BP 102 / 45; Pulse 87; Resp 18; Temp 98.2(O); Pulse Ox 97% on R/A; Weight 127.01 kg fc (R); Height 5 ft. 6 in. (167.64 cm) (R); Pain 0/10; 01:55 BP 124 / 54; Pulse 86; Resp 18; Pulse Ox 95% on R/A; ea 02:55 BP 121 / 76; Pulse 87; Resp 17; Temp 98; Pulse Ox 99% ; ea 03:30 BP 144 / 76; Pulse 86; Resp 18; Pulse Ox 99% on R/A; ea 03:45 BP 159 / 65; Pulse 84; Resp 18; Temp 98; Pulse Ox 100% ; ea 00:45 Body Mass Index 45.19 (127.01 kg, 167.64 cm) ED Course: 00:45 Arm band placed on Patient placed in an exam room, on a stretcher. fc 00:45 Patient has correct armband on for positive identification. Placed in gown. Bed in low fc position. Call light in reach. Side rails up X2. monitoring tech on. Pulse ox on. NIBP on. 00:45 No provider procedures requiring assistance completed. fc 00:55 Patient arrived in ED. fc 00:57 Gab Lund MD is Attending Physician. tw4 00:58 Triage completed. fc 01:10 Inserted saline lock: 20 gauge in right forearm, using aseptic technique. Blood rv collected. 01:10 Initial lab(s) drawn, by me, sent to lab. First set of blood cultures drawn by me. rv 01:17 Chest Single View XRAY In Process Unspecified. EDMS 01:31 CT Head Brain wo Cont In Process Unspecified. EDMS 01:35 CT completed. Patient moved back from CT. vm2 01:36 Tara Chamberlain, ALEXI is Primary Nurse. ea 02:08 Kole Mattson MD is Hospitalizing Provider. tw4 02:37 Urine Microscopic Only Sent. ds4 02:39 EKG done, by ED staff, reviewed by Gab Lund MD. ds4 02:45 Inserted saline lock: 22 gauge in left hand, using aseptic technique. ea 03:06 Patient admitted, IV remains in place. ea Administered Medications: 01:27 Drug: Ativan 1 mg Route: IVP; Site: right forearm; ak1 01:48 Follow up: Response: No adverse reaction ak1 02:16 Drug: Ativan 1 mg Route: IVP; Site: right forearm; ak1 02:35 Follow up: Response: No adverse reaction ak1 Outcome: 02:11 Decision to Hospitalize by Provider. tw4 03:06 Condition: stable ea 03:06 Instructed on instructed on need for admit, verbalized the understanding 04:04 Admitted to ICU accompanied by nurse, accompanied by tech, family with patient, via ea stretcher, room 2, with oxygen, on monitor, with chart, Report called to Rosa TRUONG 04:10 Patient left the ED. ea Signatures: Dispatcher [employer] EDMS Kayleigh Raya, RN RN Mickey Reyes ds4 Priscila Li RN RN ak1 Olga Gray 2 Tara Chamberlain RN RN ea Wadley, Terrence, MD MD tw4 Marquis Butler RN RN rv
--- NOTE | 2019-09-29 02:12 | EDPHYS ---
Physician Documentation [facility] Name: Dee Maciel Age: 59 yrs Sex: Female : 1960 Arrival Date: 09/29/2019 Time: 00:55 Bed 3 Private MD: ED Physician Gab Lund HPI: 09/29 01:39 This 59 yrs old Female presents to ER via EMS with complaints of High Blood tw4 Sugar. 01:39 The patient presents with decreased mental status, decreased responsiveness. Onset: The tw4 symptoms/episode began/occurred today. Possible causes: unknown. Associated signs and symptoms: The patient has no apparent associated signs or symptoms. Current symptoms: In the emergency department the patient's symptoms are unchanged from the initial presentation. The patient has not experienced similar symptoms in the past. Historical: - Allergies: 01:03 No Known Allergies; fc - Home Meds: 01:03 levothyroxine 200 mcg tab 1 tab once daily [Active]; spironolactone 50 mg oral tab 1 fc tab once daily [Active]; torsemide 20 mg oral tab 1 tab once daily [Active]; omeprazole 20 mg Oral cpDR 1 cap once daily [Active]; gabapentin 100 mg Oral cap 2 caps nightly [Active]; sertraline 50 mg Oral tab 1 tab once daily [Active]; simvastatin 20 mg Oral tab 1 tab once daily [Active]; lactulose 10 gram/15 mL (15 mL) Oral soln 30 mL twice a day [Active]; basagler [Active]; Novolog 100 unit/mL Sub-Q soln [Active]; - PMHx: 01:03 Diabetes - NIDDM; Hypothyroidism; WYNN liver; kidney problems; Depression; Anxiety; fc - PSHx: 01:03 paracentesis; fc - Immunization history:: Last tetanus immunization: up to date Flu vaccine is up to date. - Social history:: Smoking status: Patient/guardian denies using tobacco, Patient/guardian denies using alcohol, street drugs. - Ebola Screening: : Patient negative for fever greater than or equal to 101.5 degrees Fahrenheit, and additional compatible Ebola Virus Disease symptoms Patient denies exposure to infectious person Patient denies travel to an Ebola-affected area in the 21 days before illness onset. ROS: 01:39 Constitutional: Negative for fever, chills, and weight loss, Eyes: Negative for injury, tw4 pain, redness, and discharge, Cardiovascular: Negative for chest pain, palpitations, and edema, Respiratory: Negative for shortness of breath, cough, wheezing, and pleuritic chest pain, Abdomen/GI: Negative for abdominal pain, nausea, vomiting, diarrhea, and constipation, Back: Negative for injury and pain, MS/Extremity: Negative for injury and deformity, Skin: Negative for injury, rash, and discoloration. 01:39 Neuro: Positive for altered mental status, Negative for dizziness, gait disturbance, headache, hearing loss, loss of consciousness, numbness, seizure activity, speech changes, syncope, near syncope, tingling, tinnitus, tremor. Exam: 01:39 Constitutional: This is a well developed, well nourished patient who is awake, alert, tw4 and in no acute distress. Head/Face: Normocephalic, atraumatic. Chest/axilla: Normal chest wall appearance and motion. Nontender with no deformity. No lesions are appreciated. Cardiovascular: Regular rate and rhythm with a normal S1 and S2. No gallops, murmurs, or rubs. Normal PMI, no JVD. No pulse deficits. Respiratory: Lungs have equal breath sounds bilaterally, clear to auscultation and percussion. No rales, rhonchi or wheezes noted. No increased work of breathing, no retractions or nasal flaring. Abdomen/GI: Soft, non-tender, with normal bowel sounds. No distension or tympany. No guarding or rebound. No evidence of tenderness throughout. Back: No spinal tenderness. No costovertebral tenderness. Full range of motion. MS/ Extremity: Pulses equal, no cyanosis. Neurovascular intact. Full, normal range of motion. Neuro: Awake and alert, GCS 15, oriented to person, place, time, and situation. Cranial nerves II-XII grossly intact. Motor strength 5/5 in all extremities. Sensory grossly intact. Cerebellar exam normal. Normal gait. Vital Signs: 00:45 BP 102 / 45; Pulse 87; Resp 18; Temp 98.2(O); Pulse Ox 97% on R/A; Weight 127.01 kg fc (R); Height 5 ft. 6 in. (167.64 cm) (R); Pain 0/10; 01:55 BP 124 / 54; Pulse 86; Resp 18; Pulse Ox 95% on R/A; ea 02:55 BP 121 / 76; Pulse 87; Resp 17; Temp 98; Pulse Ox 99% ; ea 03:30 BP 144 / 76; Pulse 86; Resp 18; Pulse Ox 99% on R/A; ea 03:45 BP 159 / 65; Pulse 84; Resp 18; Temp 98; Pulse Ox 100% ; ea 00:45 Body Mass Index 45.19 (127.01 kg, 167.64 cm) fc MDM: 00:57 Patient medically screened. tw4 02:33 Differential Diagnosis: CVA, electrolyte abnormality, overdose, pneumonia, volume tw4 depletion. Data reviewed: vital signs, nurses notes. Data interpreted: Pulse oximetry: Interpretation: normal. Counseling: I had a detailed discussion with the patient and/or guardian regarding: the historical points, exam findings, and any diagnostic results supporting the discharge/admit diagnosis, lab results, radiology results. Physician consultation: Kole Mattson MD regarding admission, to the ICU, patient's condition, and will see patient in inpatient room. 09/29 00:58 Order name: Basic Metabolic Panel 09/29 00:58 Order name: Blood Culture Adult (2) 09/29 00:58 Order name: CBC with Diff; Complete Time: 02:19 09/29 00:58 Order name: Ckmb; Complete Time: 02:19 09/29 00:58 Order name: CPK; Complete Time: 02:19 09/29 00:58 Order name: Lactate; Complete Time: 02:19 09/29 00:58 Order name: LFT's; Complete Time: 02:19 09/29 02:20 Interpretation: Normal except: A/G 0.7; GLOB 3.8; ALB 2.7; BILID 0.4; BILIT 1.5; ALK tw4 119; AST 38. 09/29 00:58 Order name: Lipase; Complete Time: 02:19 09/29 00:58 Order name: Procalcitonin 09/29 00:58 Order name: Protime (+inr); Complete Time: 02:19 09/29 00:58 Order name: Ptt, Activated; Complete Time: 02:19 09/29 00:58 Order name: Troponin (emerg Dept Use Only); Complete Time: 02:19 tw4 09/29 00:58 Order name: Urine Microscopic Only [facility] 09/29 00:59 Order name: Basic Metabolic Panel; Complete Time: 02:19 EDTN 09/29 00:58 Order name: Chest Single View XRAY [facility] 09/29 00:58 Order name: Accucheck; Complete Time: 01:12 tw4 09/29 00:58 Order name: Cardiac monitoring; Complete Time: 01:12 tw4 09/29 00:58 Order name: EKG - Nurse/Tech; Complete Time: 02:13 tw4 09/29 00:59 Order name: Blood Culture [facility] 09/29 01:00 Order name: AMMONIA; Complete Time: 02:19 [facility] 09/29 01:00 Order name: CT Head Brain wo Cont [facility] 09/29 01:05 Order name: Glucose, Ancillary Testing; Complete Time: 02:19 [facility] 09/29 02:37 Order name: CONS Pharmacy Consult [facility] 09/29 02:37 Order name: Clear Liquid [facility] 09/29 02:37 Order name: Ammonia [facility] 09/29 02:37 Order name: CBC with Automated Diff EDTN 09/29 02:38 Order name: Urine Dipstick--Ancillary (enter results) [facility] 09/29 03:52 Order name: Urine Dipstick-Ancillary [facility] 09/29 00:58 Order name: IV Saline Lock - Large Bore; Complete Time: 01:38 [facility] 09/29 00:58 Order name: Labs collected and sent; Complete Time: 01:38 [facility] 09/29 00:58 Order name: O2 Per Protocol; Complete Time: 01:12 tw4 09/29 00:58 Order name: O2 Sat Monitoring; Complete Time: 01:12 tw 09/29 00:58 Order name: Urine Dipstick-Ancillary (obtain specimen); Complete Time: 02:37 tw4 Administered Medications: 01:27 Drug: Ativan 1 mg Route: IVP; Site: right forearm; ak1 01:48 Follow up: Response: No adverse reaction ak1 02:16 Drug: Ativan 1 mg Route: IVP; Site: right forearm; ak1 02:35 Follow up: Response: No adverse reaction ak1 Disposition: 09/29/19 02:11 Hospitalization ordered by Kole Mattson for Inpatient Admission. Preliminary diagnosis are Hepatic encephalopathy, Hyperammonemia. - Bed requested for Intensive Care Unit. - Status is Inpatient Admission. ea - Condition is Fair. - Problem is an ongoing problem. - Symptoms are unchanged. UTI on Admission? No Signatures: Dispatcher [employer] EDMS Kayleigh Raya, RN RN Priscila Li, RN RN ak1 Tara Chamberlain RN Maninder Gardner ea RN RN ja1 Gab Lund MD MD tw4 Corrections: (The following items were deleted from the chart) 02:52 02:11 Hospitalization Ordered by Kole Mattson MD for Inpatient Admission. Preliminary hilario1 diagnosis is Hepatic encephalopathy; Hyperammonemia. Bed requested for Intensive Care Unit. Status is Inpatient Admission. Condition is Fair. Problem is an ongoing problem. Symptoms are unchanged. UTI on Admission? No. tw4 04:10 02:52 09/29/2019 02:11 Hospitalization Ordered by Kole Mattson MD for Inpatient ea Admission. Preliminary diagnosis is Hepatic encephalopathy; Hyperammonemia. Bed requested for Intensive Care Unit. Status is Inpatient Admission. Condition is Fair. Problem is an ongoing problem. Symptoms are unchanged. UTI on Admission? No. ja1
[2019-09-29] MEDS ORDERED: ONDANSETRON 4 MG/2 ML VIAL IV PRN (02:28)
[2019-09-29] MEDS ORDERED: ALBUTEROL 2.5 MG/3 ML NEB SOL NEB PRN (02:28)
[2019-09-29] MEDS ORDERED: MORPHINE 2 MG/ML SYR IV PRN (02:30)
[2019-09-29] MEDS ORDERED: HYDRALAZINE HCL 20 MG/ML VIAL IV PRN (03:10)
[2019-09-29 03:52] LABS: Urine Blood NEGATIVE (NEG); Urine Glucose 2+ (NEG); Urine Protein NEGATIVE (NEG); Urine Specific Gravity 1.015 (1.005-1.030)
[2019-09-29 03:54] LABS: Urine Bacteria <20 /HPF (<20); Urine Culture Reflex Order NOT NEEDED; Urine RBC <5 /HPF (NONE SEEN)
[2019-09-29] MEDS: NA CHLORIDE 0.9% 1,000 ML IV SCH (04:11)
[2019-09-29] MEDS: LACTULOSE 20 GM/30 ML UCUP NG SCH ×5 (04:12→21:38)
[2019-09-29 05:16] LABS: Ferritin 33.9 ng/mL (8-388)
[2019-09-29] MEDS ORDERED: LACTULOSE 20 GM/30 ML UCUP PO SCH (06:00)
[2019-09-29] MEDS: PANTOPRAZOLE 40MG TABLET PO SCH (06:08)
[2019-09-29] MEDS: LEVOTHYROXINE SOD 0.075 MG TAB PO SCH (06:09)
--- NOTE | 2019-09-29 06:50 | HP ---
Date of Admission: 09/29/2019 Presenting Complaint: Altered mental status. History Of Present Illness: Ms. Dee Maciel is a 59-year-old female with history of diabetes, hypertension, liver cirrhosis due to WYNN with recurrent ascites on q.2 weekly paracente sis, last was 2 days ago, was brought in by the spouse after he noted patient was confused and talkin g inappropriately this evening. He had called the EMS. On arrival, she was noted to have elevated g lucose of greater than 400. She was brought to the ED repeat glucose was 387. Patient was noted to have elevated ammonia of 129. She still very confused and unable to give history. Spouse at bedside has supplementary history. He denies any recent fever or chills. Spouse states patient was doing w ell earlier today. He feels patient has been complaint with her lactulose, but he is not very sure. Past Medical History: Significant for: 1.Hypertension. 2.Hypothyroidism. 3.Chronic body swelling. 4.Hyperlipidemia. 5.Diabetes mellitus. 6.WYNN liver disease as well as chronic kidney disease, unsure of stage. Past Surgical History: Recurrent paracentesis. Social History: Life long history of nonsmoker. No history of alcohol or illicit drug use. Patient resides in the community with the spouse. Home Medications: Synthroid, spironolactone and torsemide, omeprazole, Neurontin, sertraline, Zocor, lactulose as well as Basaglar and NovoLog. Family History: Unable to obtain. Review of Systems: Unable to obtain given patient is obtunded. Physical Examination: Current Vital Signs: Blood pressure of 150/86, pulse of 89, respiratory rate of 18, O2 saturation is 96% on 2 L nasal cannula. General: Obese, middle age female, obtunded, moving from gavr-de-jrsm in bed, markedly confused. HEENT: Head is atraumatic, normocephalic. Pupils equal and reactive to light. Dry oral mucosa with mild breathing. Neck: No JVD. No carotid bruit. Respiratory: Coarse upper lung zone crepitations, but no wheeze. Cardiovascular: S1, S2. Rate and rhythm regular. GI: Obese abdomen, slightly distended, ascites by shifting dullness. Dressing over previous paracen tesis site in situ. No suprapubic fullness. No CVA tenderness. Extremities: 1+ pedal edema bilaterally. No calf tenderness. Neurologic: Patient is obtunded. Moving all extremities equally. Laboratory Data: WBC 5.0, hemoglobin 8, platelets 179. Neutrophils 63%, no bands. INR 1.03, PTT 27 . Sodium 133, potassium 3.6, glucose 386, creatinine 1.88 and baseline range from 1.3 to 1.6. Calci um of 8.5. T-bili of 1.5, alkaline phosphatase 190, ammonia 129, CK 447 with MB fraction of 6.8. Tr oponin 0.48. Albumin 2.7. Urinalysis is pending. Head CT shows no intracranial pathology. Chest x -ray images independently reviewed by me shows mild pulmonary congestive changes. EKG reviewed showe d normal sinus rhythm at the rate of 89 beats per minutes. No ST segment changes. Impression: 1.Hepatic encephalopathy. 2.Anemia of chronic disease. 3.Elevated troponin likely due to demand-mediated ischemia. 4.Acute renal failure on baseline chronic kidney disease stage 3. 5.Hyperglycemia. Plan: We will admit patient to the ICU. We will manage patient for the followin.Hepatic encephalopathy. We will place NG tube as well as wrist restraint. We will start lactulos e 30 g q.3 via NG tube for now. Monitor serum ammonia level. We will do IV Ativan as needed if wors ening agitation. 2.Demand-mediated ischemia, unclear etiology. We will follow troponin trend. If continue to worsen , may need Cardiology consult. 3.Anemia of chronic disease. We will follow iron level if worsening hemoglobin, may need PRBC. 4.Hypertension. We will do IV hydralazine as tolerated. 5.DVT prophylaxis subcutaneus heparin. 6.Advanced directive. Patient is a full code as per spouse. EO/MODL Voice ID: [id number]
[2019-09-29] MEDS: INSULIN -REGULAR HUMAN 50 UNIT/0.5 ML ML SQ SCH ×4 (07:45→21:39)
--- NOTE | 2019-09-29 08:23 | RAD REPORT ---
EXAM DESCRIPTION: RAD - Chest Single View - 09/29/2019 1:17 am CLINICAL HISTORY: altered mental status Chest pain. COMPARISON: Chest Single View dated 02/15/2019; Chest Single View dated 11/22/2018; Chest Single View dated 04/25/2017; Chest Single View dated 03/14/2017 FINDINGS: Portable technique limits examination quality. Mild interstitial pulmonary edema suspected. Elevated right hemidiaphragmatic leaflet is present. The heart is moderately enlarged. No displaced fractures.
[2019-09-29] MEDS ORDERED: MIDODRINE HCL 5 MG TABLET PO SCH (09:00)
[2019-09-29] MEDS ORDERED: HEPARIN 5000 UNIT/ML 1 ML VIAL SQ SCH ×2 (09:00)
[2019-09-29] MEDS: SERTRALINE HCL 50 MG TAB PO SCH (09:06)
[2019-09-29] MEDS: INSULIN GLARGINE 100 UNITS/ML SQ SCH ×2 (09:07→21:38)
[2019-09-29] MEDS: HEPARIN 5000 UNIT/ML 1 ML VIAL SQ SCH ×2 (09:08→16:55)
--- NOTE | 2019-09-29 10:32 | RAD REPORT ---
EXAM DESCRIPTION: CT HEAD WITHOUT CONTRAST CLINICAL HISTORY: CONFUSED COMPARISON: None. TECHNIQUE: Axial [address] imaging of the brain. Reformatted coronal and sagittal images ob tained. This examination was performed according to our departmental dose optimization program, which include s automated exposure control, adjustment of the mA and/or kV according to patient size and/or use of iterative reconstruction technique. FINDINGS: Ventricles and extra-axial fluid spaces appear normal for age. There is slight decreased w christian matter attenuation due to chronic microvascular ischemic change. No intracranial bleed. No mass or midline shift. No edema or hyperdense vessel. No evidence of large acute territorial infarction. Normal cerebellum and vermis. Fourth ventricle is midline. Prepontine cisterns are not effaced. Jennifer l sella contents. Intraorbital contents appear normal. Clear paranasal sinuses. Mastoid air cells are hypopneumatized a nd partially opacified. Intact calvarium. Normal scalp soft tissues. IMPRESSION: 1. Mild senescent brain changes. No intracranial acute finding. 2. Mild bilateral mastoid effusions. Electronically signed by: July Yi DO 09/29/2019 1:47 AM AMBULANCE DISPATCHER Due to temporary technical issues with the PACS/Fluency reporting system, reports are being signed by the in house radiologist as a courtesy to ensure prompt reporting. The interpreting radiologist is f ully responsible for the content of the report.
[2019-09-29] MEDS ORDERED: LACTULOSE 20 GM/30 ML UCUP PR ONE (12:00)
--- NOTE | 2019-09-29 16:32 | EKG ---
Test Date: 2019-09-29 Test Time: 02:01:38 Typists Supervisor: KEVIN MEASUREMENT RESULTS: Intervals: Rate: 83 CT: 184 QRSD: 90 QT: 382 QTc: 448 Charlotte: P: 55 CT: 184 QRS: 40 T: 115 INTERPRETIVE STATEMENTS: Normal sinus rhythm Low voltage QRS Nonspecific ST and T wave abnormality Abnormal ECG Compared to ECG 11/22/2018 15:49:27 ST (T wave) deviation now present Left-axis deviation no longer present Myocardial infarct finding no longer present Electronically Signed On 09-29-19 16:30:23 [employer] by Austin Kerr
--- NOTE | 2019-09-29 20:27 | P.CNS ---
Date of Consult: 09/29/19 Reason for Consult: HEMALATHA/ CKD Requesting Physician: Kole Mattson Chief Complaint: AMS History of Present Illness: Ms. Dee Maciel is a 59-year-old female with history of diabetes, hypertension, liver cirrhosis due to WYNN with recurrent ascites on q.2 weekly paracentesis, last was 2 days ago, was brought in by the spouse after he noted patient was confused and talking inappropriately this evening. He had called the EMS. On arrival, she was noted to have elevated glucose of greater than 400. She was brought to the ED repeat glucose was 387. Patient was noted to have elevated ammonia of 129. She still very confused and unable to give history. Spouse at bedside has supplementary history. He denies any recent fever or chills. Spouse states patient was doing well earlier today. He feels patient has been complaint with her lactulose, but he is not very sure. 01:39 This 59 yrs old Female presents to ER via EMS with complaints of High Blood tw4 Sugar. 01:39 The patient presents with decreased mental status, decreased responsiveness. Onset: The tw4 symptoms/episode began/occurred today. Possible causes: unknown. Associated signs and symptoms: The patient has no apparent associated signs or symptoms. Current symptoms: In the emergency department the patient's symptoms are unchanged from the initial presentation. The patient has not experienced similar symptoms in the past. Allergies No Known Allergies Allergy (Verified 09/08/19 08:09) Home medications list reviewed: Yes Home Medications: Gabapentin 200 mg PO BEDTIME 09/29/19 Insulin Aspart [Novolog Flexpen] 5 unit SQ TID 09/29/19 Insulin Glargine,Hum.rec.anlog [Basaglar Kwikpen U-100] 15 unit SQ TID 09/29/19 Lactulose 20 gm PO BID 09/29/19 Levothyroxine Sodium 150 mcg PO DAILY 09/29/19 Levothyroxine Sodium 200 mcg PO DAILY 09/29/19 Lisinopril/Hydrochlorothiazide [Lisinopril-Hctz 20-12.5 mg Tab] 1 tab PO DAILY 09/29/19 Omeprazole 20 mg PO DAILY 09/29/19 Sennosides/Docusate Sodium [Docusate Sodium-Senna Tablet] 1 tab PO BID 09/29/19 Sertraline [Zoloft*] 50 mg PO DAILY 09/29/19 Spironolactone [Aldactone] 50 mg PO DAILY 09/29/19 Torsemide [Demadex*] 20 mg PO DAILY 09/29/19 - Past Medical/Surgical History Diabetic: Yes -: IDDM -: UTI -: HTN -: Hypothyroidism -: Anemia, GI bleed, Colitis -: WYNN Liver Nonalcoholic Steatohepatitis -: Anxiety -: DEPRESSION -: SLEEP APNEA, CPAP -: obesity, Acities -: Chronic Kidney disease -: cellulitis -: (2X) -: TONSILLECTOMY -: PARACENTHESIS - Family History Father Medical History: Heart disease, Hypertension, Diabetes Sister Medical History: Cancer - Social History Smoking Status: Never smoker Alcohol use: No CD- Drugs: No Caffeine use: Yes Place of Residence: Home Review of Systems is unable to be obtained Neurological: Confusion Physical Examination Temp Pulse Resp BP Pulse Ox 97.3 F 88 17 130/89 97 09/29/19 16:00 09/29/19 19:00 09/29/19 19:00 09/29/19 19:00 09/29/19 19:00 General: Confused, Delirious, Obese HEENT: Normocephalic Neck: Supple Respiratory: Clear to auscultation bilaterally Cardiovascular: No edema, Regular rate/rhythm, No rubs Gastrointestinal: Soft and benign, Non-distended Musculoskeletal: No clubbing, No contractures Integumentary: No rashes, No cyanosis Neurological: Abnormal speech Lymphatics: No axilla or inguinal lymphadenopathy Laboratory Data (last 24 hrs) 09/29/19 02:30: WBC Cancelled, Hgb Cancelled, Hct Cancelled, Plt Count Cancelled 09/29/19 01:10: PT 12.1, INR 1.03, APTT 27.2 09/29/19 01:10: WBC 5.0, Hgb 8.0 L, Hct 23.8 L, Plt Count 179 09/29/19 01:10: Sodium 136, Potassium 3.6, BUN 38 H, Creatinine 1.88 H, Glucose 386 H, Total Bilirubin 1.5 H, AST 38 H, ALT 25, Alkaline Phosphatase 119 H, Lipase 240 Imagings Data: EXAM DESCRIPTION: CT HEAD WITHOUT CONTRAST CLINICAL HISTORY: CONFUSED COMPARISON: None. TECHNIQUE: Axial [address] imaging of the brain. Reformatted coronal and sagittal images obtained. This examination was performed according to our departmental dose optimization program, which includes automated exposure control, adjustment of the mA and/or kV according to patient size and/or use of iterative reconstruction technique. FINDINGS: Ventricles and extra-axial fluid spaces appear normal for age. There is slight decreased white matter attenuation due to chronic microvascular ischemic change. No intracranial bleed. No mass or midline shift. No edema or hyperdense vessel. No evidence of large acute territorial infarction. Normal cerebellum and vermis. Fourth ventricle is midline. Prepontine cisterns are not effaced. Normal sella contents. Intraorbital contents appear normal. Clear paranasal sinuses. Mastoid air cells are hypopneumatized and partially opacified. Intact calvarium. Normal scalp soft tissues. IMPRESSION: 1. Mild senescent brain changes. No intracranial acute finding. 2. Mild bilateral mastoid effusions. EXAM DESCRIPTION: RAD - Chest Single View - 09/29/2019 1:17 am CLINICAL HISTORY: altered mental status Chest pain. COMPARISON: Chest Single View dated 02/15/2019; Chest Single View dated 2018; Chest Single View dated 04/25/2017; Chest Single View dated 03/14/2017 FINDINGS: Portable technique limits examination quality. Mild interstitial pulmonary edema suspected. Elevated right hemidiaphragmatic leaflet is present. The heart is moderately enlarged. No displaced fractures. Conclusions/Impression: A/ HEMALATHA CKD III Rhabdomyolysis. DM II with CKD, uncontrolled. HTN with CKD. MARIANNE. WYNN. Liver cirrhosis with ascites. Hepatic Encephalopathy. Anemia in chronic illness. Iron deficiency. P/ Continue current POC and Medications. NGT. Contintue Lactulose. Continue gentle IVF. Titrate insulin as needed. Consider IV iron supplementation. No NSAIDs. AM labs. Daily weight. Thank you kindly for the consultation.
[2019-09-30] MEDS: NA CHLORIDE 0.9% 1,000 ML IV SCH ×2 (00:35→09:41)
[2019-09-30] MEDS: HEPARIN 5000 UNIT/ML 1 ML VIAL SQ SCH ×3 (01:33→16:18)
[2019-09-30] MEDS: LACTULOSE 20 GM/30 ML UCUP NG SCH ×2 (02:55→09:00)
[2019-09-30 05:03] LABS: Absolute Lymphocytes (CBC) 0.9 K/uL (0.7-4.9); Basophils % 0.3 % (0-1.3); Hematocrit 23.7 % (36.0-45.0); Lymphocytes % 8.1 % (15.3-44.8); MPV 7.1 fL (7.6-11.3); RBC Red Blood Cell Count 2.81 M/uL (3.86-4.86)
[2019-09-30 05:36] LABS: Albumin 2.9 g/dL (3.4-5.0); Bilirubin Total 1.8 mg/dL (0.2-1.0); Magnesium 2.2 mg/dL (1.8-2.4); Phosphorus 3.1 mg/dL (2.5-4.9); Potassium 3.3 mmol/L (3.5-5.1); Protein, Total 6.5 g/dL (6.4-8.2)
[2019-09-30 05:40] LABS: Troponin I 0.84 ng/mL (0.0-0.045)
[2019-09-30] MEDS: LEVOTHYROXINE SOD 0.075 MG TAB PO SCH ×2 (06:30→06:37)
[2019-09-30] MEDS: PANTOPRAZOLE 40MG TABLET PO SCH (06:30)
[2019-09-30] MEDS: INSULIN -REGULAR HUMAN 50 UNIT/0.5 ML ML SQ SCH ×4 (07:30→21:00)
[2019-09-30] MEDS ORDERED: SERTRALINE HCL 50 MG TAB PO SCH (09:00)
[2019-09-30] MEDS: SERTRALINE HCL 50 MG TAB PO SCH (09:00)
[2019-09-30] MEDS ORDERED: TORSEMIDE 20 MG TAB PO SCH (09:00)
[2019-09-30] MEDS ORDERED: HOME MED 1 EA UNK (Lisinopril/Hydrochlorothiazide [Lisinopril-Hctz 20-12.5 Mg Tab] 1 TAB) PO SCH (09:00)
[2019-09-30] MEDS ORDERED: hydroCHLOROthiazide 12.5 MG CAP PO SCH (09:00)
[2019-09-30] MEDS: SPIRONOLACTONE 25 MG TABLET PO SCH (09:00)
[2019-09-30] MEDS ORDERED: lisinopriL 20 MG TAB PO SCH (09:00)
[2019-09-30] MEDS: INSULIN GLARGINE 100 UNITS/ML SQ SCH ×2 (09:00→21:00)
[2019-09-30] MEDS: LACTULOSE 20 GM/30 ML UCUP PR SCH ×2 (09:41→21:29)
[2019-09-30 09:56] LABS: Anisocytosis 2+; Blood Morphology Comment NOTED (NOT SEEN); Platelet Estimate ADEQ; Poikilocytosis 1+
[2019-09-30 11:45] LABS: Arterial Blood Carboxyhemoglob 1.9 % (0-1.5); Blood Gas Oxyhemoglobin 94.9 % (94-97); Blood O2 Saturation 97.1 % (92-98.5)
[2019-09-30] MEDS ORDERED: NS KCL 40MEQ 40 MEQ/1,000 ML BAG IV SCH (12:00)
[2019-09-30] MEDS: NACHLORIDE 0.45% 1,000 ML with POTASSIUM CL 40 MEQ IV SCH ×2 (12:32)
[2019-09-30 12:43] LABS: Urine Appearance CLEAR; Urine Bilirubin NEGATIVE (NEG); Urine Blood NEGATIVE (NEG); Urine Color YELLOW; Urine Glucose TRACE (NEG); Urine Protein 1+ (NEG); Urine Specific Gravity 1.025 (1.005-1.030); Urine Urobilinogen 0.2 mg/dL (0.2-1.0); Urine pH 5.5 (5.0-7.0)
[2019-09-30 13:28] LABS: Urine Bacteria <20 /HPF (<20); Urine Culture Reflex Order NOT NEEDED; Urine Mucus SLIGHT /HPF (NONE SEEN); Urine RBC <5 /HPF (NONE SEEN)
[2019-09-30] MEDS: CEFTRIAXONE/SWI 1gm 1 GM/10 ML SYR IV SCH (14:19)
--- NOTE | 2019-09-30 15:29 | P.PN ---
Subjective Date of Service: 09/30/19 Chief Complaint: AMS Patient seen and examined at bedside with RN. Chart reviewed. Case discussed with family at bedside. No complaints to offer overnight. Continues to be agitated this morning. He is an alert and oriented x2 however still appears to be lethargic. Review of Systems 10-point ROS is otherwise unremarkable Physical Examination - Vital Signs Temperature: 97 F Blood Pressure: 149/75 Pulse: 83 Respirations: 20 Pulse Ox (%): 100 - Physical Exam General: In no apparent distress, Confused HEENT: Atraumatic, PERRLA, EOMI Neck: Supple, JVD not distended Respiratory: Clear to auscultation bilaterally, Normal air movement Cardiovascular: Regular rate/rhythm, Normal S1 S2 Gastrointestinal: Normal bowel sounds, No tenderness Musculoskeletal: No tenderness Integumentary: No rashes Neurological: Normal speech, Normal tone, Normal affect Lymphatics: No axilla or inguinal lymphadenopathy - Studies Microbiology Data (last 24 hrs): 09/29/19 02:30 Blood - Blood Anaerobic Blood Culture - Final Medications List Reviewed: Yes Assessment And Plan - Current Problems (Diagnosis) (1) Encephalopathy Current Visit: Yes Status: Acute Plan: Toxic encephalopathy versus hepatic encephalopathy -initial ammonia in the ER elevated now at 38 -patient still continues to be alert and oriented times 2 and appears to be agitated -UA done today consistent with UTI -follow up with urine culture and blood culture here -head CT negative for acute abnormality -lactulose 30 b.i.d. continue (2) UTI (urinary tract infection) Onset Date: 03/15/17 Current Visit: No Status: Acute Plan: Acute cystitis without hematuria -currently on IV Rocephin will continue that here in the hospital -cultures pending at this time will follow up Qualifiers: Urinary tract infection type: acute cystitis Hematuria presence: without hematuria Qualified Code(s): N30.00 - Acute cystitis without hematuria (3) DM type 2 (diabetes mellitus, type 2) Onset Date: 04/26/17 Current Visit: No Status: Chronic Plan: Insulin sliding scale and Accu-Chek Qualifiers: Diabetes mellitus nursing home insulin use: with 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 Diabetes mellitus complication status: with hyperglycemia Qualified Code(s): E11.65 - Type 2 diabetes mellitus with hyperglycemia; 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 (4) HTN (hypertension) Current Visit: No Status: Chronic Plan: Stable at this time will continue monitor restarted on home medication Qualifiers: Hypertension type: essential hypertension Qualified Code(s): I10 - Essential (primary) hypertension (5) Hypothyroidism Current Visit: No Status: Chronic Plan: Stable at this time on levothyroxine Qualifiers: Hypothyroidism type: acquired Qualified Code(s): E03.9 - Hypothyroidism, unspecified (6) WYNN (nonalcoholic steatohepatitis) Onset Date: 04/26/17 Current Visit: No Status: Chronic (7) CKD (chronic kidney disease) Onset Date: 04/26/17 Current Visit: No Status: Chronic Qualifiers: Chronic kidney disease stage: stage 3 (moderate) Qualified Code(s): N18.3 - Chronic kidney disease, stage 3 (moderate) Discharge Plan: Home Plan to discharge in: Greater than 2 days - Code Status/Comfort Care Code Status Assessed: Yes Critical Care: No
--- NOTE | 2019-09-30 16:36 | PN ---
Date of Progress Note: 09/30/2019 Subjective: The patient was seen and examined. She is more alert and awake, but she is still confus ed. She has been trying to climb out of bed. She is unable to take any p.o. intake. She has been g etting the lactulose per rectally. She also seems to be more short of breath and has been using her abdominal muscles. ABG has been sent and plan is to put her on BiPAP right now. Physical Examination: Vital Signs: Showing temperature of 97, pulse rate of 88, respiratory rate of 13, and blood pressure of 135/71. General: She is an obese female, in no acute distress. She is alert, but she is unable to talk much at this time. No JVD was noted. Auscultation of the lungs revealed bilateral equal air entry with diminished breath sounds at bilateral bases. Abdomen: Obese and nontender. EXTREMITIES: Showed no evidence of edema. She has a rectal tube in place. Laboratory Data: At this time, is showing sodium of 143, potassium of 3.3, chloride of 107, bicarb o f 29, BUN of 36 and creatinine improving to 1.6. She has also had 500 cc of urine retention and henc e, she is being straight cathed at this time. Troponin is slightly elevated. Albumin is low at 2.9. CBC showing hemoglobin of 8, hematocrit 23.7, platelet count of 168. ABGs still pending at this ti me. Current Medications: Have been reviewed in detail as well. Impression: 1.Acute on chronic renal insufficiency, possibly secondary to acute tubular necrosis versus dehydrat ion. The patient is improving with IV fluids at this time. 2.Hypokalemia. We will go ahead and change her IV fluids to half-normal saline with potassium chlor oly to improve her volume status as well as replace her potassium. 3.Altered mental status secondary to hepatic encephalopathy. We will go ahead and continue with the lactulose and monitor her labs closely. 4.History of cirrhosis leading to hepatic encephalopathy. When she is able to take p.o. intake and can have her rifaximin resumed and all other medications can be resumed. However, would like to disc ontinue the hydrochlorothiazide at this time to prevent further worsening of her volume status. Henc e, I will hold the torsemide and HCTZ and continue with the spironolactone for right now. Plan: Overall, the patient's renal function is improving. Her condition is complicated by urinary r etention for which a straight cath is being done. We will discontinue HCTZ and torsemide and start h er on half-normal saline with potassium chloride to improve her potassium as well as volume status. Continue to monitor closely and may need Fleming catheter if urinary retention persists after this curr ent straight cath. Continue lactulose and avoid further hypotension, nephrotoxins and will follow up closely. VV/MODL Voice ID: [id number] Report ID: [id number]
--- NOTE | 2019-09-30 18:59 | RAD REPORT ---
EXAM DESCRIPTION: US - Renal Ultrasound-Complete - 09/30/2019 6:38 pm CLINICAL HISTORY: ARF Flank pain COMPARISON: Renal Ultrasound-Complete dated 12/29/2018 FINDINGS: Examination was limited due to patient's clinical status. Both kidneys are normal in size and shape. The right kidney measures 10.0 x 7.7 x 3.9 cm. No hydronephrosis, focal mass or perinephric fluid. The left kidney measures 10.2 x 6.1 x 4.7 cm. No hydronephrosis, focal mass or perinephric fluid. The urinary bladder is incompletely distended without gross abnormality seen. IMPRESSION: Unremarkable renal sonogram.
[2019-10-01] MEDS: HEPARIN 5000 UNIT/ML 1 ML VIAL SQ SCH ×2 (01:11→08:55)
[2019-10-01] MEDS: NACHLORIDE 0.45% 1,000 ML with POTASSIUM CL 40 MEQ IV SCH ×2 (02:19)
[2019-10-01 04:55] LABS: Absolute Lymphocytes (CBC) 1.5 K/uL (0.7-4.9); Basophils % 0.7 % (0-1.3); Hematocrit 22.7 % (36.0-45.0); Lymphocytes % 16.3 % (15.3-44.8); MPV 7.3 fL (7.6-11.3); RBC Red Blood Cell Count 2.69 M/uL (3.86-4.86)
[2019-10-01 05:07] LABS: Magnesium 2.1 mg/dL (1.8-2.4); Potassium 3.8 mmol/L (3.5-5.1)
[2019-10-01] MEDS: PANTOPRAZOLE 40MG TABLET PO SCH (05:13)
[2019-10-01] MEDS: LEVOTHYROXINE SOD 0.075 MG TAB PO SCH (05:13)
[2019-10-01] MEDS: INSULIN -REGULAR HUMAN 50 UNIT/0.5 ML ML SQ SCH ×4 (07:30→20:52)
[2019-10-01] MEDS: LACTULOSE 20 GM/30 ML UCUP PR SCH (08:55)
[2019-10-01] MEDS: INSULIN GLARGINE 100 UNITS/ML SQ SCH ×2 (08:56→20:52)
[2019-10-01] MEDS: CEFTRIAXONE/SWI 1gm 1 GM/10 ML SYR IV SCH (08:56)
[2019-10-01] MEDS: SPIRONOLACTONE 25 MG TABLET PO SCH (08:56)
[2019-10-01] MEDS: SERTRALINE HCL 50 MG TAB PO SCH (08:56)
[2019-10-01] MEDS ORDERED: HOME MED 1 EA UNK (Levothyroxine Sodium [Levothyroxine Sodium] 150 MCG) PO SCH (09:00)
--- NOTE | 2019-10-01 09:26 | P.PN ---
Subjective Date of Service: 10/01/19 Chief Complaint: AMS Subjective: Doing well (patient seen / examined. discussed with her viticulturist, Chi. patient is looking much better compared to earlier. more clear in her thinking and tolerating liquid diet well. she denies pain. uses cpap, at nights. breathing close to baseline. has some edema but thats also close to baseline. bp is now improved to about 125 systolic. potassium is in good range. patient answers questions appropriately and talking comfortably. vs: sbp 125/ stable. oxygen via nc. lungs cta with decreased bs. obese/abd is soft/nt. ext with edema. hr regular labs/meds reviewed. a/p: elina: improving. tolerating po intake. hold ivf after current bag (has about 600 ccs in it) is completed. hold heparin. guiac check stools. pt evaluation. patient advised to f/u with us for nephrology evaluation to see / assess residual function once acute issues resolved.) Physical Examination - Vital Signs Temperature: 97.4 F Blood Pressure: 110/62 Pulse: 82 Respirations: 22 Pulse Ox (%): 99 - Studies Microbiology Data (last 24 hrs): 09/29/19 02:30 Blood - Blood Anaerobic Blood Culture - Final Medications List Reviewed: Yes
--- NOTE | 2019-10-01 11:07 | CON ---
History Of Present Illness: Mrs. Maciel is 59. She came to the hospital with altered mental status due to elevated ammonia levels. She has cirrhosis due to nonalcoholic steatohepatitis. She has been dealing with this for more than 5 years. She has had numerous episodes of hepatic encephalopathy. Weekly, she gets paracentesis. She has had noninvasive testing done on her heart including an echoca rdiogram yesterday, which showed normal ejection fraction. There was moderate pulmonary hypertension , estimated right ventricular systolic pressure about 55 mmHg. Her EKGs do not show infarction, inju ry, or ischemia. She has no history of heart disease. I am asked to see her because her troponins a re elevated. She was not having chest pain, at least that she remembers. Her hemoglobin is low at 7 .6. Creatinine 1.49, estimated GFR is 1.49, and a troponin level is 0.84. Physical Examination: General: She is 5 feet 6 inches, 274 pounds. She is alert, pleasant. She is not oriented. She valdez s not remember anything from yesterday. She is not dyspneic, not in pain. She is aware of her surro undings, recognizes her family members. Lungs: Clear. Heart: Reveals a regular rate and rhythm. Extremities: Mild edema. Distal pulses are normal. She shows sinus rhythm, nonspecific ST and T-wave abnormality. Impression: My impression is that the patient's troponin is probably not related to a coronary occlu nioc but to the hypertension and the hepatic disease. I do not think a cardiac cath is indicated in Mrs. Maciel. A nuclear stress test would be useful at some point, but her main problem is the severe cirrhosis, hepatic encephalopathy and ascites. Accompanying that she is under the care of a hepatic team at one of the [facility], [facility] believe [place], and has frequent contact with them. TERRANCE Voice ID: [id number] Report ID: [id number]
[2019-10-01] MEDS ORDERED: LIDOCAINE 1% 20 ML MDV ONE (11:26)
--- NOTE | 2019-10-01 11:40 | P.PN ---
Subjective Date of Service: 10/01/19 Primary Care Provider: unknown Chief Complaint: AMS Subjective: Improving (Patient improved. Patient doing well this time. Patient is alert. Patient currently on BiPAP.) Physical Examination - Vital Signs Temperature: 97.4 F Blood Pressure: 110/62 Pulse: 82 Respirations: 22 Pulse Ox (%): 99 - Physical Exam General: Alert, In no apparent distress, Cooperative HEENT: Atraumatic Neck: Supple Respiratory: Clear to auscultation bilaterally, Normal air movement Cardiovascular: Normal pulses, Regular rate/rhythm Gastrointestinal: Normal bowel sounds, Soft and benign, Non-distended, No masses , No rebound, No guarding Musculoskeletal: No tenderness, No warmth Integumentary: No erythema, No warmth, No cyanosis Neurological: Normal speech, Normal strength at 5/5 x4 extr, Normal tone, Normal affect - Studies Medications List Reviewed: Yes Assessment & Plan Discharge Plan: Home Plan to discharge in: 24 Hours Physician Review Additional Text: Impression: Altered mental status secondary to hepatic encephalopathy complicated with history of WYNN 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 Patient appears to be at her baseline level. Hepatic encephalopathy appears resolved. Continue with lactulose. Will transfer patient to the floor. Anticipate possible discharge in the next 1-2 days pending clinical improvement. Case discussed with nephrology. Will hold IV fluids and heparin. 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 Hypertension: Will review and restart home medication. Hypothyroidism: Continue with medication. Chronic kidney disease stage 3: Case discussed with nephrology. Nephrology recommends to hold IV fluids and heparin. Obstructive sleep apnea on CPAP: Continue CPAP at night. Anemia of chronic disease: Will monitor hemoglobin. Will hold heparin as recommended by nephrology. Obesity, BMI 44: Will address lifestyle modification education. Time Spent Managing Pts Care (In Minutes): 55
--- NOTE | 2019-10-01 14:22 | RAD REPORT ---
EXAM DESCRIPTION: CT - Head Brain Wo Cont - 10/01/2019 2:09 pm CLINICAL HISTORY: Head trauma status post fall COMPARISON: September 29, 2019 TECHNIQUE: Computed axial tomography of the head was obtained. IV contrast was not requested. All CT scans are performed using dose optimization technique as appropriate and may include automated exposure control or mA/KV adjustment according to patient size. FINDINGS: An intracranial bleed is not seen . The ventricles are normal in caliber. No extra-axial fluid collection is noted. Fluid within the sinuses/ mastoids is not seen. IMPRESSION: No acute intracranial abnormality is seen. If patient's symptoms persist MRI of the bra in would be recommended.
[2019-10-01] MEDS: LACTULOSE 20 GM/30 ML UCUP PO SCH ×2 (14:29→20:52)
[2019-10-02] MEDS: PANTOPRAZOLE 40MG TABLET PO SCH (05:34)
[2019-10-02] MEDS: LEVOTHYROXINE SOD 0.1 MG TAB PO SCH (05:34)
[2019-10-02 06:37] LABS: Magnesium 2.1 mg/dL (1.8-2.4); Potassium 3.6 mmol/L (3.5-5.1)
[2019-10-02 06:38] LABS: Absolute Lymphocytes (CBC) 1.5 K/uL (0.7-4.9); Basophils % 1.1 % (0-1.3); Hematocrit 23.7 % (36.0-45.0); Lymphocytes % 23.2 % (15.3-44.8); MPV 7.4 fL (7.6-11.3); RBC Red Blood Cell Count 2.82 M/uL (3.86-4.86)
[2019-10-02] MEDS: INSULIN -REGULAR HUMAN 50 UNIT/0.5 ML ML SQ SCH ×4 (07:30→21:19)
[2019-10-02] MEDS: SPIRONOLACTONE 25 MG TABLET PO SCH (07:49)
[2019-10-02] MEDS: LACTULOSE 20 GM/30 ML UCUP PO SCH ×3 (07:50→21:20)
[2019-10-02] MEDS: SERTRALINE HCL 50 MG TAB PO SCH (07:51)
[2019-10-02] MEDS: INSULIN GLARGINE 100 UNITS/ML SQ SCH ×2 (07:51→21:19)
--- NOTE | 2019-10-02 10:07 | P.PN ---
Subjective Date of Service: 10/02/19 Primary Care Provider: unknown Chief Complaint: AMS patient looks much better than yesterday. denies pain. breathing much better. edema improved. "i feel much better," she says. had a fall earlier while she got out of bed with family member assisting. vs stable. sbp in 90-low 100 range. lungs decreased bs b/l cvs regular abd soft/nt/nd/bs+ ext edema (improved). a/p: elina/anemia/liver disease/genearlly weak: advised regarding fall precautions. avoid over the counter nsaids. bp is on lower side but stable. patient is breathing better. PT evaluating to imrpove strength. creatinine last was stable at 1.49. advised patient to f/u for evaluation of residual renal status once acute issues stabilized further. 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 Patient appears to be at her baseline level. Hepatic encephalopathy appears resolved. Continue with lactulose. Will transfer patient to the floor. Anticipate possible discharge in the next 1-2 days pending clinical improvement. Case discussed with nephrology. Will hold IV fluids and heparin. 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 Hypertension: Will review and restart home medication. Hypothyroidism: Continue with medication. Chronic kidney disease stage 3: Case discussed with nephrology. Nephrology recommends to hold IV fluids and heparin. Obstructive sleep apnea on CPAP: Continue CPAP at night. Anemia of chronic disease: Will monitor hemoglobin. Will hold heparin as recommended by nephrology. Obesity, BMI 44: Will address lifestyle modification education.
--- NOTE | 2019-10-02 11:25 | P.PN ---
Subjective Date of Service: 10/02/19 Primary Care Provider: unknown Chief Complaint: AMS Subjective: Improving Physical Examination - Vital Signs Temperature: 97.6 F Blood Pressure: 96/53 Pulse: 78 Respirations: 16 Pulse Ox (%): 99 - Physical Exam General: Alert, In no apparent distress, Oriented x3, Cooperative HEENT: Atraumatic Neck: Supple Respiratory: Clear to auscultation bilaterally, Normal air movement Cardiovascular: Normal pulses, Regular rate/rhythm Gastrointestinal: Normal bowel sounds, Soft and benign, Non-distended Neurological: Normal speech, Normal strength at 5/5 x4 extr, Normal tone - Studies Medications List Reviewed: Yes Assessment & Plan Discharge Plan: Other (Home with home health and physical therapy versus skilled placement) Plan to discharge in: 48 Hours Physician Review Additional Text: Impression: Altered mental status secondary to hepatic encephalopathy complicated with history of WYNN 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 Continue with lactulose. Will continue with PT/OT. Will consult social work administrator to consider skilled placement at discharge versus home health with physical therapy. Will continue to reassess. Will see how she does with physical therapy today to determine discharge planning. I will turn the service over to the hospitalist team tomorrow. I will go over the plan of care with him. Anticipate discharge within the next 1- 2 days. 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 Hypertension: Continue with medication. Hypothyroidism: Continue with medication. Chronic kidney disease stage 3: Case discussed with nephrology. Nephrology continues to hold hold IV fluids and heparin. Obstructive sleep apnea on CPAP: Continue CPAP at night. Anemia of chronic disease: Will monitor hemoglobin. Will hold heparin as recommended by nephrology. Obesity, BMI 44: Will address lifestyle modification education. Time Spent Managing Pts Care (In Minutes): 55
--- NOTE | 2019-10-02 13:11 | PN ---
Ms. Maciel seems to be feeling very well. She has moderate pulmonary hypertension and it is the like ly explanation for the mild elevation of troponin. I do not recommend a cardiac cath or any further workup other than what has been done. I believe she is stable enough to be discharged and deal with her chronic liver disease through her usual positions at [facility]. PILAR/MORA Voice ID: [id number] Report ID: [id number]
--- NOTE | 2019-10-02 13:34 | CON ---
TERRANCE Voice ID: [id number] Report ID: [id number] MTDD
--- NOTE | 2019-10-02 15:51 | RAD REPORT ---
EXAM DESCRIPTION: RAD - Chest Single View - 10/02/2019 3:19 pm CLINICAL HISTORY: COPD, shortness of breath COMPARISON: September 29 TECHNIQUE: AP portable chest image was obtained 1517 hours . FINDINGS: Lung volumes are low. Again noted is the significantly elevated right hemidiaphragm. No fo sixto lung parenchymal process seen. Posterior right lung base assessment is limited due to the elevate d hemidiaphragm. Heart and vasculature are normal. No measurable pleural effusion and no pneumothorax . No acute bony abnormality seen. No acute aortic findings suspected. IMPRESSION: No acute cardiopulmonary process.
--- NOTE | 2019-10-02 19:03 | PN ---
Date of Progress Note: 10/02/2019 Subjective: Patient was admitted with altered mental status, hepatic encephalopathy. Patient has ch ronic kidney disease secondary to stage IV normal size kidney, proteinuric secondary to hypertension, nephrosclerosis, hepatorenal. Her baseline creatinine is 1.8. GFR around 27. The patient came wit h anemia. Physical Examination: Vital Signs: When I saw the patient, blood pressure 109/46, pulse of 80, afebrile. Patient had good urine output of 750. Chest: Decreased entry bilateral base. Heart: S1, S2. Systolic murmur. Abdomen: Soft, nontender. Extremities: Trace edema. Laboratory Data: WBC 6.5, H and H 7.8/23.7, platelet 171. Sodium 142, potassium 3.6, bicarb 30, BUN 33, creatinine 1.4, calcium 8.5, magnesium 2.1. Renal ultrasound showing normal size kidney 08/13.2 . Urinalysis +1 protein. Chest x-ray showing cardiomegaly with congestion compared with all the chest x-ray, which is slightly more congested. Assessment And Plan: 1.I am going to go ahead and get a new chest x-ray for the patient. 2.Chronic kidney disease, hepatorenal, stable on her baseline, looked to me slightly on the over vol ume side. I am going to go ahead and get the new chest x-ray for better evaluation for her fluid sta tus. We will resume her Lasix as low-dose 20 mg and we will monitor the patient closely. 3.Hypokalemia. I am going to start the patient on low dose of spironolactone. 4.Altered mental status as by the Primary. 5.Edema, possible multifactorial. Patient had history of hypothyroidism. I going to go ahead and check for her TSH and we will follow up. WILLIAM/MORA Voice ID: [id number] Report ID: [id number]
[2019-10-03 06:27] LABS: Absolute Lymphocytes (CBC) 1.7 K/uL (0.7-4.9); Basophils % 1.3 % (0-1.3); Hematocrit 24.3 % (36.0-45.0); Lymphocytes % 28.1 % (15.3-44.8); MPV 7.2 fL (7.6-11.3); RBC Red Blood Cell Count 2.84 M/uL (3.86-4.86)
[2019-10-03] MEDS: PANTOPRAZOLE 40MG TABLET PO SCH (06:29)
[2019-10-03] MEDS: LEVOTHYROXINE SOD 0.1 MG TAB PO SCH (06:29)
[2019-10-03 06:40] LABS: Albumin 2.4 g/dL (3.4-5.0); Magnesium 2.2 mg/dL (1.8-2.4); Phosphorus 2.5 mg/dL (2.5-4.9); Potassium 3.9 mmol/L (3.5-5.1)
[2019-10-03 06:44] VITALS: BMI 43.9
[2019-10-03 06:53] LABS: Thyroid Stimulating Hormone 26.2 uIU/mL (0.360-3.740)
[2019-10-03] MEDS: INSULIN GLARGINE 100 UNITS/ML SQ SCH (08:43)
[2019-10-03] MEDS: INSULIN -REGULAR HUMAN 50 UNIT/0.5 ML ML SQ SCH ×3 (08:44→16:14)
[2019-10-03] MEDS: LACTULOSE 20 GM/30 ML UCUP PO SCH ×2 (08:45→13:19)
[2019-10-03] MEDS: SERTRALINE HCL 50 MG TAB PO SCH (08:46)
[2019-10-03] MEDS: SPIRONOLACTONE 25 MG TABLET PO SCH (08:53)
[2019-10-03] MEDS ORDERED: FUROSEMIDE 20 MG TABLET PO SCH (09:00)
--- NOTE | 2019-10-03 10:54 | P.PN ---
Subjective Date of Service: 10/03/19 Primary Care Provider: unknown Chief Complaint: AMS Subjective: Improving (Patient is doing well alert oriented responsive wants to go home) Review of Systems Unremarkable General: Weakness Physical Examination - Vital Signs Temperature: 97.4 F Blood Pressure: 106/43 Pulse: 83 Respirations: 17 Pulse Ox (%): 95 - Physical Exam General: Alert, In no apparent distress, Oriented x3 Respiratory: Clear to auscultation bilaterally Cardiovascular: Regular rate/rhythm - Studies Medications List Reviewed: Yes Assessment & Plan - Problems (Diagnosis) (1) Encephalopathy Current Visit: Yes Status: Acute Plan: Patient is 59 years of age admitted with hepatic encephalopathy she is doing much better cultures all negative chronic renal insufficiency labs reviewed ambulate possible discharge today final signs all patient is hypotensive Dc lisinopril patient is hypothyroid
[2019-10-03 11:53] VITALS: O2SAT 94
[2019-10-03] MEDS ORDERED: FUROSEMIDE 20 MG/ 2ML VIAL IV ONE (12:02)
[2019-10-03 16:18] VITALS: BP 126/61; TEMP 97.5
--- NOTE | 2019-10-03 16:22 | PN ---
Date of Progress Note: 10/03/2019 Subjective: Patient was admitted with altered mental status, hepatic encephalopathy, anasarca. Objective: Vital Signs: Blood pressure 106/43, pulse of 83. Patient had good urine output of 750. Still positive balance. Chest: Decreased entry at bilateral base. Heart: S1, S2. Regular. Systolic murmur. Abdomen: Ascites. Extremities: +2 edema. Laboratory Data: WBC 6.1, H and H 8/24.3, platelets 173. Sodium 143, potassium 3.9, bicarb 30, BUN 33, creatinine 1.5, calcium 8.4, phosphorus 2.5, magnesium 2.2, albumin 2.4. TSH 26. PTH 46. Current Medications: The patient is on include hydralazine 10 every 6 hours p.r.n. sepsis, spironola ctone 50 daily, sertraline, Lasix, lactulose, levothyroxine 200 daily, insulin. Assessment And Plan: 1.Acute kidney injury on chronic kidney disease secondary to hepatorenal with anasarca. I am going to go ahead and give the patient extra dose of Lasix today and we will monitor the patient. I am goi ng to increase the daily dose of the patient to 40 mg. 2.Hypertension, controlled, optimal. Continue to utilize the blood pressure for more diuresis. 3.Anasarca, multifactorial secondary to hepatorenal/hypothyroidism. Levothyroxine has been increase d. We will follow up. 4.Hepatic encephalopathy as by primary. 5.Hypomagnesemia, resolved. WILLIAM/MORA Voice ID: [id number] Report ID: [id number]
[2019-10-04] MEDS ORDERED: FUROSEMIDE 20 MG TABLET PO SCH (09:00)
--- NOTE | 2019-10-04 12:06 | P.DS ---
Admission Date: 09/29/19 Discharge Date: 10/04/19 Primary Care Provider: unknown Disposition: ROUTINE DISCHARGE Discharge Condition: FAIR Reason for Admission: AMS - Problems (1) Encephalopathy Status: Acute Brief History of Present Illness: Patient admitted with altered mental status Hospital Course: Most likely she had hepatic encephalopathy no evidence of sepsis chronic renal failure At the time of discharge patient alert oriented responsive cooperative did ambulate vital signs stable chest clear cardiovascular system heart sounds normal oxygenation satisfactory blood cultures all negative mildly anemic Vital Signs/Physical Exam: Temp Pulse Resp BP Pulse Ox 97.5 F 98 H 17 126/61 94 10/03/19 16:00 10/03/19 16:00 10/03/19 16:00 10/03/19 16:00 10/03/19 16:00 Laboratory Data at Discharge: WBC 6.1 K/uL (4.3-10.9) 10/03/19 04:57 Hgb 8.0 g/dL (12.0-15.0) L 10/03/19 04:57 Hct 24.3 % (36.0-45.0) L 10/03/19 04:57 Plt Count 173 K/uL (152-406) 10/03/19 04:57 PT 12.1 SECONDS (9.5-12.5) 09/29/19 01:10 INR 1.03 09/29/19 01:10 APTT 27.2 SECONDS (24.3-36.9) 09/29/19 01:10 Sodium 142 mmol/L (136-145) 10/03/19 04:57 Potassium 3.9 mmol/L (3.5-5.1) 10/03/19 04:57 BUN 33 mg/dL (7-18) H 10/03/19 04:57 Creatinine 1.55 mg/dL (0.55-1.3) H 10/03/19 04:57 Glucose 194 mg/dL (74-106) H 10/03/19 04:57 Uric Acid 8.0 mg/dL (2.6-6.0) H 09/30/19 04:41 Phosphorus 2.5 mg/dL (2.5-4.9) 10/03/19 04:57 Magnesium 2.2 mg/dL (1.8-2.4) 10/03/19 04:57 Total Bilirubin 1.8 mg/dL (0.2-1.0) H 09/30/19 04:41 AST 93 U/L (15-37) H 09/30/19 04:41 ALT 37 U/L (12-78) 09/30/19 04:41 Alkaline Phosphatase 127 U/L (45-117) H 09/30/19 04:41 Troponin I 0.95 ng/mL (0.0-0.045) H* 09/30/19 10:53 Lipase 240 U/L (73-393) 09/29/19 01:10 Home Medications: Gabapentin 200 mg PO BEDTIME 09/29/19 Insulin Aspart [Novolog Flexpen] 5 unit SQ TID 09/29/19 Insulin Glargine,Hum.rec.anlog [Basaglar Kwikpen U-100] 15 unit SQ TID 09/29/19 Lactulose 20 gm PO BID 09/29/19 Levothyroxine Sodium 150 mcg PO DAILY 09/29/19 Omeprazole 20 mg PO DAILY 09/29/19 Sertraline [Zoloft*] 50 mg PO DAILY 09/29/19 Spironolactone [Aldactone*] 50 mg PO DAILY 09/29/19 Torsemide [Demadex*] 20 mg PO DAILY 09/29/19 Followup: Art Pollock MD [ACTIVE - CAN ADMIT] - 1-2 Weeks (primary care physician- call to schedule an appointment)
--- NOTE | 2019-10-04 14:04 | ECHO ---
HEIGHT: 5 ft 6 in WEIGHT: 272 lb 8 oz DATE OF STUDY: 09/30/[address]: Maria Guadalupe Frias MD 2-DIMENSIONAL: YES M.MODE: YES DOPPLER: YES COLOR FLOW: YES TDS: PORTABLE: YES DEFINITY: BUBBLE STUDY: DIAGNOSIS: ELEVATED TROPONIN CARDIAC HISTORY: CATHERIZATION: NO SURGERY: NO PROSTHETIC VALVE: NO PACEMAKER: NO MEASUREMENTS (cm) DIASTOLIC (NORMALS) SYSTOLIC (NORMALS) IVSd 1.1 (0.6-1.2) LA Diam 4.2 (1.9-4.0) LVEF 77% LVIDd 4.6 (3.5-5.7) LVIDs 2.5 (2.0-3.5) %FS 45% LVPWd 1.1 (0.6-1.2) Ao Diam 2.6 (2.0-3.7) 2 DIMENSIONAL ASSESSMENT: RIGHT ATRIUM: NORMAL LEFT ATRIUM: DILATED RIGHT VENTRICLE: NORMAL LEFT VENTRICLE: NORMAL TRICUSPID VALVE: NORMAL MITRAL VALVE: NORMAL PULMONIC VALVE: NORMAL AORTIC VALVE: NORMAL PERICARDIAL EFFUSION: NONE AORTIC ROOT: NORMAL LEFT VENTRICULAR WALL MOTION: NORMAL DOPPLER/COLOR FLOW: MILD MITRAL AND TRICUSPID REGURGITATION. ESTIMATED RIGHT VENTRICULAR SYSTOLIC PRESSURE 50-55 mmHg (MODERATE PULMONARY HYPERTENSION). COMMENTS: NORMAL LEFT VENTRICULAR EJECTION FRACTION. DILATED LEFT ATRIUM. MILD MITRAL AND TRICUSPID REGURGITATION. MODERATE PULMONARY HYPERTENSION. TECHNOLOGIST: ROME PARISI
[2019-10-06 13:50] LABS: Vitamin D 1,25-Dihydroxy Total 25 pg/mL (18-72); Vitamin D,1,25-OH2, D2 15 pg/mL
== END 2019-10-03 19:30 | disposition home health service (06) | DRG 441 ==
LOC: ER 00:45 → ERHOLD 02:40 → 3RD-ICU 03:14 → 4TH 10-01 13:00
PROVIDERS: ADMIT Family Medicine; ATTEND Internal Medicine Sleep Medicine
DX: K72.90 Hepatic failure, unspecified without coma (principal); N17.0 Acute kidney failure with tubular necrosis; K76.7 Hepatorenal syndrome; R18.8 Other ascites; N30.00 Acute cystitis without hematuria; Z68.41 Body mass index [BMI] 40.0-44.9, adult; I24.8 Other forms of acute ischemic heart disease; E11.22 Type 2 diabetes mellitus with diabetic chronic kidney disease; E11.65 Type 2 diabetes mellitus with hyperglycemia; I12.9 Hypertensive chronic kidney disease with stage 1 through stage 4 chronic kidney disease, or unspecified chronic kidney disease; N18.3 Chronic kidney disease, stage 3 (moderate); K74.60 Unspecified cirrhosis of liver; I27.20 Pulmonary hypertension, unspecified; K75.81 Nonalcoholic steatohepatitis (NASH); E87.6 Hypokalemia; E83.42 Hypomagnesemia; E03.9 Hypothyroidism, unspecified; E78.5 Hyperlipidemia, unspecified; D63.1 Anemia in chronic kidney disease; E66.9 Obesity, unspecified; Z79.4 Long term (current) use of insulin
CPT/HCPCS: 36415; 70450; 71045; 76770; 80048; 80053; 80069; 80076; 81001; 81003; 81015; 82140; 82274; 82550; 82553; 82652; 82728; 82805; 82947; 83540; 83605; 83690; 83735; 83970; 84100; 84145; 84439; 84443; 84466; 84484; 84550; 85025; 85610; 85730; 87040; 93005; 93306; 94660; 94760; 96374; 97116; 97161; 97530; 99285; J0360; J0696; J1644; J1815; J1940; J7030

== ENCOUNTER → 2019-10-06 | Day surgery (SDC) | payer OTHER ==
--- OUTSIDE RECORDS SUMMARY | 2019-10-06 08:22 | XMS REPORT ---
:1960 [facility] Address [address] [place] [address] Dr. Melton [address] [place] [id number] Care Team Providers Name Role Phone DANIEL [...] Reference Range Comments TOTAL PROTEIN (BEAKER) (test nrzg=021) 6.5 gm/dL 6.0-8.3 ALBUMIN (BEAKER) (test emkj=5614) 3.0 g/dL 3.5-5.0 BILIRUBIN TOTAL (BEAKER) (test uatm=512) 1.5 mg/dL 0.2-1.2 BILIRUBIN DIRECT (BEAKER) (test slwi=501) 0.7 mg/dL 0.1-0.5 ALKALINE PHOSPHATASE (BEAKER) (test ihfb=637) 120 U/L 40-150 AST (SGOT) (BEAKER) (test icdl=612) 34 U/L 5-34 ALT (SGPT) (BEAKER) (test pbwt=894) 21 U/L 6-55 BASIC METABOLIC [id number] 15:39:00 Test Item Value Reference Range Comments SODIUM (BEAKER) (test 135 meq/L 136-145 odtj=115) POTASSIUM (BEAKER) (test 3.8 meq/L 3.5-5.1 focr=257) CHLORIDE (BEAKER) (test 99 meq/L 98-107 lepd=216) CO2 (BEAKER) (test 31 meq/L 22-29 hwka=027) BLOOD UREA NITROGEN 21 mg/dL 7-21 (BEAKER) (test zzrd=805) CREATININE (BEAKER) (test 1.70 mg/dL 0.57-1.25 jpgr=128) GLUCOSE RANDOM (BEAKER) 290 mg/dL 70-105 (test fcex=859) CALCIUM (BEAKER) (test 8.4 mg/dL 8.4-10.2 vpvu=780) EGFR (BEAKER) (test 31 mL/min/1.73 sq m ESTIMATED GFR IS NOT pvue=4854) ACCURATE CREATININE CLEARANCE IN PREDICTING GLOMERULAR FILTRATION RATE. ESTIMATED GFR IS NOT APPLICABLE FOR DIALYSIS PATIENTS. PROTHROMBIN [id number] 15:39:00 Test Item Value Reference Range Comments PROTIME (BEAKER) (test ryjf=378) 14.2 seconds 11.9-14.2 INR (BEAKER) (test cmhg=739) 1.2 <=5.9 Effective 04/01/2019: PT Reference Range ChangeNew: 11.9-14.2 Previous: 11.7- 14.7RECOMMENDED COUMADIN/WARFARIN INR THERAPY RANGESSTANDARD DOSE: 2.0-3.0 Includes: PROPHYLAXIS for venous thrombosis, systemic embolization; TREATMENT for venous thrombosis and/or pulmonary embolus.HIGH RISK: Target INR is2.5-3.5 for patients wiht mechanical heart valves.CBC W/PLT COUNT & AUTO [id number] 15:25:00 Test Item Value Reference Range Comments WHITE BLOOD CELL COUNT (BEAKER) (test wqnp=762) 5.8 K/ L 3.5-10.5 RED BLOOD CELL COUNT (BEAKER) (test oord=423) 3.30 M/ L 3.93-5.22 HEMOGLOBIN (BEAKER) (test cbfu=336) 8.9 GM/DL 11.2-15.7 HEMATOCRIT (BEAKER) (test tvbh=141) 28.2 % 34.1-44.9 MEAN CORPUSCULAR VOLUME (BEAKER) (test slik=507) 85.5 fL 79.4-94.8 MEAN CORPUSCULAR HEMOGLOBIN (BEAKER) (test 27.0 pg 25.6-32.2 ndty=576) MEAN CORPUSCULAR HEMOGLOBIN CONC (BEAKER) (test 31.6 GM/DL 32.2-35.5 hhoq=987) RED CELL DISTRIBUTION WIDTH (BEAKER) (test 16.6 % 11.7-14.4 dece=362) PLATELET COUNT (BEAKER) (test svor=422) 185 K/CU MM 150-450 MEAN PLATELET VOLUME (BEAKER) (test iwkx=904) 9.0 fL 9.4-12.3 NUCLEATED RED BLOOD CELLS (BEAKER) (test 0 /100 WBC 0-0 zzgn=179) NEUTROPHILS RELATIVE PERCENT (BEAKER) (test 50 % gyhu=311) LYMPHOCYTES RELATIVE PERCENT (BEAKER) (test 32 % wjek=413) MONOCYTES RELATIVE PERCENT (BEAKER) (test 7 % lflt=120) EOSINOPHILS RELATIVE PERCENT (BEAKER) (test 10 % vois=425) BASOPHILS RELATIVE PERCENT (BEAKER) (test 2 % lufm=414) NEUTROPHILS ABSOLUTE COUNT (BEAKER) (test 2.88 K/ L 1.56-6.13 xolc=923) LYMPHOCYTES ABSOLUTE COUNT (BEAKER) (test 1.86 K/ L 1.18-3.74 uylq=522) MONOCYTES ABSOLUTE COUNT (BEAKER) (test 0.38 K/ L 0.24-0.36 grvp=649) EOSINOPHILS ABSOLUTE COUNT (BEAKER) (test 0.55 K/ L 0.04-0.36 vvne=436) BASOPHILS ABSOLUTE COUNT (BEAKER) (test 0.10 K/ L 0.01-0.08 ruqz=925) IMMATURE GRANULOCYTES-RELATIVE PERCENT (BEAKER) 0 % 0-1 (test hzof=6159) PROTHROMBIN [id number] 17:20:00 Test Item Value Reference Range Comments PROTIME (BEAKER) (test zkyd=711) 13.6 seconds 11.9-14.2 INR (BEAKER) (test hgid=263) 1.1 <=5.9 Effective 04/01/2019: PT Reference Range ChangeNew: 11.9-14.2 Previous: 11.7- 14.7RECOMMENDED COUMADIN/WARFARIN INR THERAPY RANGESSTANDARD DOSE: 2.0-3.0 Includes: PROPHYLAXIS for venous thrombosis, systemic embolization; TREATMENT for venous thrombosis and/or pulmonary embolus.HIGH RISK: Target INR is2.5-3.5 for patients wiht mechanical heart valves.HEPATIC FUNCTION [id number] 17:16 :00 Test Item Value Reference Range Comments TOTAL PROTEIN (BEAKER) (test wjuq=716) 6.7 gm/dL 6.0-8.3 ALBUMIN (BEAKER) (test qyla=9540) 3.0 g/dL 3.5-5.0 BILIRUBIN TOTAL (BEAKER) (test cyyf=532) 1.4 mg/dL 0.2-1.2 BILIRUBIN DIRECT (BEAKER) (test ksmr=045) 0.7 mg/dL 0.1-0.5 ALKALINE PHOSPHATASE (BEAKER) (test xpfq=635) 139 U/L 40-150 AST (SGOT) (BEAKER) (test ldlo=006) 32 U/L 5-34 ALT (SGPT) (BEAKER) (test esuf=790) 16 U/L 6-55 BASIC METABOLIC [id number] 17:16:00 Test Item Value Reference Range Comments SODIUM (BEAKER) (test 139 meq/L 136-145 wvkr=194) POTASSIUM (BEAKER) (test 3.6 meq/L 3.5-5.1 ytfn=561) CHLORIDE (BEAKER) (test 99 meq/L 98-107 yitj=449) CO2 (BEAKER) (test 32 meq/L 22-29 pphv=482) BLOOD UREA NITROGEN 26 mg/dL 7-21 (BEAKER) (test wjag=137) CREATININE (BEAKER) (test 1.68 mg/dL 0.57-1.25 xvfm=658) GLUCOSE RANDOM (BEAKER) 263 mg/dL 70-105 (test ntgb=116) CALCIUM (BEAKER) (test 9.0 mg/dL 8.4-10.2 feid=767) EGFR (BEAKER) (test 31 mL/min/1.73 sq m ESTIMATED GFR IS NOT nxqq=7277) ACCURATE CREATININE CLEARANCE IN PREDICTING GLOMERULAR FILTRATION RATE. ESTIMATED GFR IS NOT APPLICABLE FOR DIALYSIS PATIENTS. CBC W/PLT COUNT & AUTO [id number] 17:01:00 Test Item Value Reference Range Comments WHITE BLOOD CELL COUNT (BEAKER) (test vcny=770) 7.4 K/ L 3.5-10.5 RED BLOOD CELL COUNT (BEAKER) (test glsw=527) 3.44 M/ L 3.93-5.22 HEMOGLOBIN (BEAKER) (test gljd=905) 9.6 GM/DL 11.2-15.7 HEMATOCRIT (BEAKER) (test oafc=289) 30.1 % 34.1-44.9 MEAN CORPUSCULAR VOLUME (BEAKER) (test cvlh=513) 87.5 fL 79.4-94.8 MEAN CORPUSCULAR HEMOGLOBIN (BEAKER) (test 27.9 pg 25.6-32.2 achr=541) MEAN CORPUSCULAR HEMOGLOBIN CONC (BEAKER) (test 31.9 GM/DL 32.2-35.5 scgy=827) RED CELL DISTRIBUTION WIDTH (BEAKER) (test 16.0 % 11.7-14.4 kulg=402) PLATELET COUNT (BEAKER) (test dgbk=197) 190 K/CU MM 150-450 MEAN PLATELET VOLUME (BEAKER) (test zzcm=490) 9.3 fL 9.4-12.3 NUCLEATED RED BLOOD CELLS (BEAKER) (test 0 /100 WBC 0-0 ngsl=990) NEUTROPHILS RELATIVE PERCENT (BEAKER) (test 65 % tysb=862) LYMPHOCYTES RELATIVE PERCENT (BEAKER) (test 23 % phbl=959) MONOCYTES RELATIVE PERCENT (BEAKER) (test 6 % cjvd=269) EOSINOPHILS RELATIVE PERCENT (BEAKER) (test 5 % jdhf=781) BASOPHILS RELATIVE PERCENT (BEAKER) (test 1 % eaye=151) NEUTROPHILS ABSOLUTE COUNT (BEAKER) (test 4.83 K/ L 1.56-6.13 kguz=720) LYMPHOCYTES ABSOLUTE COUNT (BEAKER) (test 1.67 K/ L 1.18-3.74 ywuv=003) MONOCYTES ABSOLUTE COUNT (BEAKER) (test 0.41 K/ L 0.24-0.36 fvxf=058) EOSINOPHILS ABSOLUTE COUNT (BEAKER) (test 0.40 K/ L 0.04-0.36 aawa=731) BASOPHILS ABSOLUTE COUNT (BEAKER) (test 0.06 K/ L 0.01-0.08 uxeh=211) IMMATURE GRANULOCYTES-RELATIVE PERCENT (BEAKER) 0 % 0-1 (test oodx=5625) POCT-GLUCOSE [id number] 13:48:00 Test Item Value Reference Range Comments POC-GLUCOSE METER (BEAKER) 203 mg/dL 70-110 TESTED AT [facility] [address] [facility] (test kmzr=3797) [facility] [address] POCT-GLUCOSE [id number] 09:45:00 Test Item Value Reference Range Comments POC-GLUCOSE METER (BEAKER) 168 mg/dL 70-110 TESTED AT [facility] [address] [facility] (test xpyx=5428) [facility] [address] POCT-GLUCOSE [id number] 08:06:00 Test Item Value Reference Range Comments POC-GLUCOSE METER (BEAKER) 177 mg/dL 70-110 TESTED AT [address] (test nlda=1989) [facility] [address] COMPREHENSIVE METABOLIC [id number] 06:11:00 Test Item Value Reference Range Comments TOTAL PROTEIN (BEAKER) 5.5 gm/dL 6.0-8.3 (test gidm=154) ALBUMIN (BEAKER) (test 3.0 g/dL 3.5-5.0 ztef=8253) ALKALINE PHOSPHATASE 117 U/L 40-150 (BEAKER) (test pdsx=094) BILIRUBIN TOTAL (BEAKER) 1.2 mg/dL 0.2-1.2 (test bpgo=946) SODIUM (BEAKER) (test 138 meq/L 136-145 whcr=514) POTASSIUM (BEAKER) (test 4.1 meq/L 3.5-5.1 enws=900) CHLORIDE (BEAKER) (test 102 meq/L 98-107 rjcd=084) CO2 (BEAKER) (test 29 meq/L 22-29 lqlf=384) BLOOD UREA NITROGEN 23 mg/dL 7-21 (BEAKER) (test ttfm=947) CREATININE (BEAKER) (test 1.26 mg/dL 0.57-1.25 rqlk=816) GLUCOSE RANDOM (BEAKER) 177 mg/dL 70-105 (test mdor=128) CALCIUM (BEAKER) (test 8.3 mg/dL 8.4-10.2 ubtt=951) AST (SGOT) (BEAKER) (test 26 U/L 5-34 xgqo=527) ALT (SGPT) (BEAKER) (test 9 U/L 6-55 bzql=958) EGFR (BEAKER) (test 43 mL/min/1.73 sq m ESTIMATED GFR IS NOT rgxe=9955) ACCURATE CREATININE CLEARANCE IN PREDICTING GLOMERULAR FILTRATION RATE. ESTIMATED GFR IS NOT APPLICABLE FOR DIALYSIS PATIENTS. CBC (HEMOGRAM ONLY)2019-06-03 05:17:00 Test Item Value Reference Range Comments WHITE BLOOD CELL COUNT (BEAKER) (test jrai=735) 6.0 K/ L 3.5-10.5 RED BLOOD CELL COUNT (BEAKER) (test lvpk=582) 2.95 M/ L 3.93-5.22 HEMOGLOBIN (BEAKER) (test wjph=985) 8.1 GM/DL 11.2-15.7 HEMATOCRIT (BEAKER) (test rpgl=724) 26.3 % 34.1-44.9 MEAN CORPUSCULAR VOLUME (BEAKER) (test btwy=129) 89.2 fL 79.4-94.8 MEAN CORPUSCULAR HEMOGLOBIN (BEAKER) (test 27.5 pg 25.6-32.2 hakp=365) MEAN CORPUSCULAR HEMOGLOBIN CONC (BEAKER) (test 30.8 GM/DL 32.2-35.5 vzsa=569) RED CELL DISTRIBUTION WIDTH (BEAKER) (test 17.3 % 11.7-14.4 btaw=137) PLATELET COUNT (BEAKER) (test mcev=445) 203 K/CU MM 150-450 MEAN PLATELET VOLUME (BEAKER) (test idyh=831) 9.2 fL 9.4-12.3 NUCLEATED RED BLOOD CELLS (BEAKER) (test 0 /100 WBC 0-0 ytxi=683) POCT-GLUCOSE [id number] 23:37:00 Test Item Value Reference Range Comments POC-GLUCOSE METER (BEAKER) 212 mg/dL 70-110 TESTED AT [place] [id number] [facility] (test xzyt=7699) [facility] [address] POCT-GLUCOSE [id number] 16:58:00 Test Item Value Reference Range Comments POC-GLUCOSE METER (BEAKER) 313 mg/dL 70-110 TESTED AT [address] (test hwly=4301) [facility] [address] ANG, TIPSS [id number] 14:25:00Reason for exam:->still recurrent paracentesisFINAL REPORT Procedures:1. [...] the patient's medical record by the nurse. Gas Station Supervisor: Akil Chung MD. Improvement Manager: MD Ishaan (Fellow) Approach: 1. Right lower [...] skin and deep soft tissues. A 5 Bhutanese one-step catheter wasinserted and removed from the [...] The needle was exchanged for a 4 Bhutanese micropuncture sheath. The micropuncture sheath was exchanged over a 0.035 Bentson wire for a 5 Bhutanese x 10 cm vascular sheath. The TIPS stent was then cannulated using a 5 Bhutanese C2 catheter and 0.035 angled Glidewire. The [...] Verified Date/Time: 06/02/2019 14:25:34 Reading Location : [place] [address] Angio Body Reading Room POCT-GLUCOSE [id number] 11:52:00 Test Item Value Reference Range Comments POC-GLUCOSE METER (BEAKER) 159 mg/dL 70-110 TESTED AT [facility] [address] [facility] (test wdpq=4273) [facility] [address] [id number] 05:55:00 Test Item Value Reference Range Comments MAGNESIUM (BEAKER) (test kblc=837) 1.6 mg/dL 1.6-2.6 COMPREHENSIVE METABOLIC [id number] 05:55:00 Test Item Value Reference Range Comments TOTAL PROTEIN (BEAKER) 5.7 gm/dL 6.0-8.3 (test kvfm=293) ALBUMIN (BEAKER) (test 3.3 g/dL 3.5-5.0 ftqh=6990) ALKALINE PHOSPHATASE 118 U/L 40-150 (BEAKER) (test ligc=681) BILIRUBIN TOTAL (BEAKER) 1.4 mg/dL 0.2-1.2 (test ajfo=355) SODIUM (BEAKER) (test 140 meq/L 136-145 ottu=874) POTASSIUM (BEAKER) (test 3.3 meq/L 3.5-5.1 jxzt=483) CHLORIDE (BEAKER) (test 101 meq/L 98-107 rncx=951) CO2 (BEAKER) (test 31 meq/L 22-29 jfec=141) BLOOD UREA NITROGEN 23 mg/dL 7-21 (BEAKER) (test vbfi=328) CREATININE (BEAKER) (test 1.33 mg/dL 0.57-1.25 glme=033) GLUCOSE RANDOM (BEAKER) 131 mg/dL 70-105 (test fpvh=426) CALCIUM (BEAKER) (test 8.7 mg/dL 8.4-10.2 deas=245) AST (SGOT) (BEAKER) (test 27 U/L 5-34 zxam=026) ALT (SGPT) (BEAKER) (test 11 U/L 6-55 ntoi=747) EGFR (BEAKER) (test 41 mL/min/1.73 sq m ESTIMATED GFR IS NOT mfrn=7866) ACCURATE CREATININE CLEARANCE IN PREDICTING GLOMERULAR FILTRATION RATE. ESTIMATED GFR IS NOT APPLICABLE FOR DIALYSIS PATIENTS. CBC W/PLT COUNT & AUTO [id number] 05:43:00 Test Item Value Reference Range Comments WHITE BLOOD CELL COUNT (BEAKER) (test seut=113) 6.0 K/ L 3.5-10.5 RED BLOOD CELL COUNT (BEAKER) (test dhpr=595) 2.97 M/ L 3.93-5.22 HEMOGLOBIN (BEAKER) (test hjsa=363) 8.2 GM/DL 11.2-15.7 HEMATOCRIT (BEAKER) (test ovjb=544) 26.0 % 34.1-44.9 MEAN CORPUSCULAR VOLUME (BEAKER) (test ycsi=341) 87.5 fL 79.4-94.8 MEAN CORPUSCULAR HEMOGLOBIN (BEAKER) (test 27.6 pg 25.6-32.2 rmog=801) MEAN CORPUSCULAR HEMOGLOBIN CONC (BEAKER) (test 31.5 GM/DL 32.2-35.5 tupw=695) RED CELL DISTRIBUTION WIDTH (BEAKER) (test 17.7 % 11.7-14.4 gact=881) PLATELET COUNT (BEAKER) (test yihz=992) 194 K/CU MM 150-450 MEAN PLATELET VOLUME (BEAKER) (test agra=430) 9.3 fL 9.4-12.3 NUCLEATED RED BLOOD CELLS (BEAKER) (test 0 /100 WBC 0-0 yftg=060) NEUTROPHILS RELATIVE PERCENT (BEAKER) (test 48 % yffc=713) LYMPHOCYTES RELATIVE PERCENT (BEAKER) (test 31 % oduj=185) MONOCYTES RELATIVE PERCENT (BEAKER) (test 10 % rzer=187) EOSINOPHILS RELATIVE PERCENT (BEAKER) (test 9 % njto=342) BASOPHILS RELATIVE PERCENT (BEAKER) (test 1 % gtti=383) NEUTROPHILS ABSOLUTE COUNT (BEAKER) (test 2.84 K/ L 1.56-6.13 cuys=573) LYMPHOCYTES ABSOLUTE COUNT (BEAKER) (test 1.87 K/ L 1.18-3.74 bhwk=294) MONOCYTES ABSOLUTE COUNT (BEAKER) (test 0.60 K/ L 0.24-0.36 cpmu=730) EOSINOPHILS ABSOLUTE COUNT (BEAKER) (test 0.56 K/ L 0.04-0.36 rbdh=285) BASOPHILS ABSOLUTE COUNT (BEAKER) (test 0.08 K/ L 0.01-0.08 xgon=513) IMMATURE GRANULOCYTES-RELATIVE PERCENT (BEAKER) 0 % 0-1 (test nsss=1286) [id number] 05:42:00 Test Item Value Reference Range Comments PHOSPHORUS (BEAKER) (test gmoy=099) 2.3 mg/dL 2.3-4.7 POCT-GLUCOSE [id number] 22:34:00 Test Item Value Reference Range Comments POC-GLUCOSE METER (BEAKER) 192 mg/dL 70-110 TESTED AT [address] (test swyd=4504) [place] [id number] POCT-GLUCOSE [id number] 17:01:00 Test Item Value Reference Range Comments POC-GLUCOSE METER (BEAKER) 250 mg/dL 70-110 TESTED AT [address] (test qnfs=7571) [place] [address] [id number] 07:42:00 Test Item Value Reference Range Comments MAGNESIUM (BEAKER) (test 1.6 mg/dL 1.6-2.6 Specimen slightly hemolyzed etli=195) [id number] 07:42:00 Test Item Value Reference Range Comments PHOSPHORUS (BEAKER) (test 2.8 mg/dL 2.3-4.7 Specimen slightly hemolyzed orrz=339) COMPREHENSIVE METABOLIC [id number] 07:42:00 Test Item Value Reference Range Comments TOTAL PROTEIN (BEAKER) 5.5 gm/dL 6.0-8.3 Specimen slightly (test cpda=876) hemolyzed ALBUMIN (BEAKER) (test 2.9 g/dL 3.5-5.0 Specimen slightly xqbm=1759) hemolyzed ALKALINE PHOSPHATASE 125 U/L 40-150 (BEAKER) (test ujvq=171) BILIRUBIN TOTAL (BEAKER) 1.1 mg/dL 0.2-1.2 Specimen slightly (test xeqd=671) hemolyzed SODIUM (BEAKER) (test 141 meq/L 136-145 iwwr=576) POTASSIUM (BEAKER) (test 3.6 meq/L 3.5-5.1 Specimen slightly zgeo=256) hemolyzed CHLORIDE (BEAKER) (test 101 meq/L 98-107 qydk=216) CO2 (BEAKER) (test 31 meq/L 22-29 wgqm=018) BLOOD UREA NITROGEN 23 mg/dL 7-21 (BEAKER) (test gaoz=176) CREATININE (BEAKER) (test 1.50 mg/dL 0.57-1.25 Specimen slightly vwpw=910) hemolyzed GLUCOSE RANDOM (BEAKER) 153 mg/dL 70-105 (test ucld=764) CALCIUM (BEAKER) (test 8.7 mg/dL 8.4-10.2 ittz=025) AST (SGOT) (BEAKER) (test 35 U/L 5-34 Specimen slightly tmci=054) hemolyzed ALT (SGPT) (BEAKER) (test 12 U/L 6-55 Specimen slightly npou=382) hemolyzed EGFR (BEAKER) (test 35 mL/min/1.73 sq m ESTIMATED GFR IS NOT niax=7930) ACCURATE CREATININE CLEARANCE IN PREDICTING GLOMERULAR FILTRATION RATE. ESTIMATED GFR IS NOT APPLICABLE FOR DIALYSIS PATIENTS. POCT-GLUCOSE [id number] 07:38:00 Test Item Value Reference Range Comments POC-GLUCOSE METER (BEAKER) 154 mg/dL 70-110 TESTED AT [facility] [address] [facility] (test mwsy=0688) [facility] [address] CBC W/PLT COUNT & AUTO [id number] 06:24:00 Test Item Value Reference Range Comments WHITE BLOOD CELL COUNT (BEAKER) (test ukbf=265) 6.0 K/ L 3.5-10.5 RED BLOOD CELL COUNT (BEAKER) (test cktc=279) 3.09 M/ L 3.93-5.22 HEMOGLOBIN (BEAKER) (test efyd=268) 8.5 GM/DL 11.2-15.7 HEMATOCRIT (BEAKER) (test qzzy=469) 27.0 % 34.1-44.9 MEAN CORPUSCULAR VOLUME (BEAKER) (test cpna=643) 87.4 fL 79.4-94.8 MEAN CORPUSCULAR HEMOGLOBIN (BEAKER) (test 27.5 pg 25.6-32.2 uppc=473) MEAN CORPUSCULAR HEMOGLOBIN CONC (BEAKER) (test 31.5 GM/DL 32.2-35.5 ebpd=711) RED CELL DISTRIBUTION WIDTH (BEAKER) (test 17.7 % 11.7-14.4 mtkp=735) PLATELET COUNT (BEAKER) (test cpkj=452) 196 K/CU MM 150-450 MEAN PLATELET VOLUME (BEAKER) (test awhm=328) 8.9 fL 9.4-12.3 NUCLEATED RED BLOOD CELLS (BEAKER) (test 0 /100 WBC 0-0 hobb=296) NEUTROPHILS RELATIVE PERCENT (BEAKER) (test 44 % xnbf=699) LYMPHOCYTES RELATIVE PERCENT (BEAKER) (test 34 % yaze=860) MONOCYTES RELATIVE PERCENT (BEAKER) (test 11 % ogyj=946) EOSINOPHILS RELATIVE PERCENT (BEAKER) (test 9 % ndel=914) BASOPHILS RELATIVE PERCENT (BEAKER) (test 2 % ieww=904) NEUTROPHILS ABSOLUTE COUNT (BEAKER) (test 2.64 K/ L 1.56-6.13 rflp=962) LYMPHOCYTES ABSOLUTE COUNT (BEAKER) (test 2.03 K/ L 1.18-3.74 ivbt=832) MONOCYTES ABSOLUTE COUNT (BEAKER) (test 0.64 K/ L 0.24-0.36 avvr=943) EOSINOPHILS ABSOLUTE COUNT (BEAKER) (test 0.54 K/ L 0.04-0.36 mhig=204) BASOPHILS ABSOLUTE COUNT (BEAKER) (test 0.09 K/ L 0.01-0.08 omlk=043) IMMATURE GRANULOCYTES-RELATIVE PERCENT (BEAKER) 0 % 0-1 (test fwii=4936) CALCIUM, [id number] 05:35:00 Test Item Value Reference Range Comments CALCIUM IONIZED (BEAKER) (test qqwp=944) 0.99 mmol/L 1.12-1.27 PH, BLOOD (BEAKER) (test capm=0467) 7.50 POCT-GLUCOSE [id number] 22:12:00 Test Item Value Reference Range Comments POC-GLUCOSE METER (BEAKER) 246 mg/dL 70-110 TESTED AT [address] (test teyj=0772) [facility] [address] POCT-GLUCOSE [id number] 17:11:00 Test Item Value Reference Range Comments POC-GLUCOSE METER (BEAKER) 201 mg/dL 70-110 TESTED AT [facility] [address] [facility] (test vqex=8431) [facility] [address] POCT-GLUCOSE [id number] 13:24:00 Test Item Value Reference Range Comments POC-GLUCOSE METER (BEAKER) 173 mg/dL 70-110 TESTED AT [place] [id number] [facility] (test qtao=0443) [facility] [address] COMPREHENSIVE METABOLIC [id number] 09:06:00 Test Item Value Reference Range Comments TOTAL PROTEIN (BEAKER) 5.8 gm/dL 6.0-8.3 (test cmec=841) ALBUMIN (BEAKER) (test 3.2 g/dL 3.5-5.0 jxcr=5949) ALKALINE PHOSPHATASE 125 U/L 40-150 (BEAKER) (test gtst=833) BILIRUBIN TOTAL (BEAKER) 1.6 mg/dL 0.2-1.2 (test mzqy=373) SODIUM (BEAKER) (test 140 meq/L 136-145 qgmm=584) POTASSIUM (BEAKER) (test 3.4 meq/L 3.5-5.1 jsxy=774) CHLORIDE (BEAKER) (test 100 meq/L 98-107 avol=664) CO2 (BEAKER) (test 31 meq/L 22-29 vnvf=440) BLOOD UREA NITROGEN 21 mg/dL 7-21 (BEAKER) (test tbja=082) CREATININE (BEAKER) (test 1.57 mg/dL 0.57-1.25 zylr=029) GLUCOSE RANDOM (BEAKER) 138 mg/dL 70-105 (test hjsw=892) CALCIUM (BEAKER) (test 8.9 mg/dL 8.4-10.2 gvpq=634) AST (SGOT) (BEAKER) (test 33 U/L 5-34 zzcz=740) ALT (SGPT) (BEAKER) (test 13 U/L 6-55 cxji=875) EGFR (BEAKER) (test 33 mL/min/1.73 sq m ESTIMATED GFR IS NOT dsdy=9806) ACCURATE CREATININE CLEARANCE IN PREDICTING GLOMERULAR FILTRATION RATE. ESTIMATED GFR IS NOT APPLICABLE FOR DIALYSIS PATIENTS. Specimen slightly ictericPOCT-GLUCOSE [id number] 07:53:00 Test Item Value Reference Range Comments POC-GLUCOSE METER (BEAKER) 157 mg/dL 70-110 TESTED AT [address] (test nent=8768) [facility] [address] CBC (HEMOGRAM ONLY)2019-05-31 06:33:00 Test Item Value Reference Range Comments WHITE BLOOD CELL COUNT (BEAKER) (test ypln=965) 5.7 K/ L 3.5-10.5 RED BLOOD CELL COUNT (BEAKER) (test yjeb=546) 3.25 M/ L 3.93-5.22 HEMOGLOBIN (BEAKER) (test ofof=078) 8.9 GM/DL 11.2-15.7 HEMATOCRIT (BEAKER) (test ouhb=048) 28.3 % 34.1-44.9 MEAN CORPUSCULAR VOLUME (BEAKER) (test qcpo=527) 87.1 fL 79.4-94.8 MEAN CORPUSCULAR HEMOGLOBIN (BEAKER) (test 27.4 pg 25.6-32.2 ztqs=493) MEAN CORPUSCULAR HEMOGLOBIN CONC (BEAKER) (test 31.4 GM/DL 32.2-35.5 gvvq=399) RED CELL DISTRIBUTION WIDTH (BEAKER) (test 17.5 % 11.7-14.4 qfyo=364) PLATELET COUNT (BEAKER) (test nofb=768) 188 K/CU MM 150-450 MEAN PLATELET VOLUME (BEAKER) (test dtdp=916) 9.1 fL 9.4-12.3 NUCLEATED RED BLOOD CELLS (BEAKER) (test 0 /100 WBC 0-0 vuya=719) POCT-GLUCOSE [id number] 22:28:00 Test Item Value Reference Range Comments POC-GLUCOSE METER (BEAKER) 193 mg/dL 70-110 TESTED AT [address] (test wdle=9514) [facility] [address] POCT-GLUCOSE [id number] 17:19:00 Test Item Value Reference Range Comments POC-GLUCOSE METER (BEAKER) 155 mg/dL 70-110 TESTED AT [address] (test ykyc=8310) [facility] [address] POCT-GLUCOSE [id number] 12:44:00 Test Item Value Reference Range Comments POC-GLUCOSE METER (BEAKER) 189 mg/dL 70-110 TESTED AT [facility] [address] [facility] (test ytix=2915) [facility] [address] POCT-GLUCOSE [id number] 08:30:00 Test Item Value Reference Range Comments POC-GLUCOSE METER (BEAKER) 140 mg/dL 70-110 TESTED AT [facility] [address] [facility] (test vgxm=2028) [facility] [address] [id number] 05:15:00 Test Item Value Reference Range Comments THYROID STIMULATING HORMONE (BEAKER) (test 6.32 uIU/mL 0.35-4.94 zugf=172) T4, [id number] 05:11:00 Test Item Value Reference Range Comments FREE T4 (BEAKER) (test ipxx=475) 1.70 ng/dL 0.70-1.48 [id number] 04:53:00 Test Item Value Reference Range Comments PHOSPHORUS (BEAKER) (test omvt=066) 2.4 mg/dL 2.3-4.7 [id number] 04:53:00 Test Item Value Reference Range Comments MAGNESIUM (BEAKER) (test jgbz=440) 1.8 mg/dL 1.6-2.6 COMPREHENSIVE METABOLIC [id number] 04:53:00 Test Item Value Reference Range Comments TOTAL PROTEIN (BEAKER) 5.1 gm/dL 6.0-8.3 (test dzpm=022) ALBUMIN (BEAKER) (test 2.9 g/dL 3.5-5.0 ksls=5841) ALKALINE PHOSPHATASE 101 U/L 40-150 (BEAKER) (test gwna=394) BILIRUBIN TOTAL (BEAKER) 1.6 mg/dL 0.2-1.2 (test dufh=918) SODIUM (BEAKER) (test 137 meq/L 136-145 nffd=152) POTASSIUM (BEAKER) (test 3.7 meq/L 3.5-5.1 cxob=449) CHLORIDE (BEAKER) (test 99 meq/L 98-107 qual=438) CO2 (BEAKER) (test 32 meq/L 22-29 vzjl=197) BLOOD UREA NITROGEN 20 mg/dL 7-21 (BEAKER) (test sjrz=551) CREATININE (BEAKER) (test 1.55 mg/dL 0.57-1.25 lcuc=017) GLUCOSE RANDOM (BEAKER) 157 mg/dL 70-105 (test xkjq=016) CALCIUM (BEAKER) (test 8.3 mg/dL 8.4-10.2 rpjo=096) AST (SGOT) (BEAKER) (test 33 U/L 5-34 dhee=641) ALT (SGPT) (BEAKER) (test 12 U/L 6-55 yzfb=261) EGFR (BEAKER) (test 34 mL/min/1.73 sq m ESTIMATED GFR IS NOT tlwc=9420) ACCURATE CREATININE CLEARANCE IN PREDICTING GLOMERULAR FILTRATION RATE. ESTIMATED GFR IS NOT APPLICABLE FOR DIALYSIS PATIENTS. CBC (HEMOGRAM ONLY)2019-05-30 04:13:00 Test Item Value Reference Range Comments WHITE BLOOD CELL COUNT (BEAKER) (test jumk=688) 5.3 K/ L 3.5-10.5 RED BLOOD CELL COUNT (BEAKER) (test gezj=754) 2.75 M/ L 3.93-5.22 HEMOGLOBIN (BEAKER) (test hlco=559) 7.6 GM/DL 11.2-15.7 HEMATOCRIT (BEAKER) (test gwzz=268) 24.2 % 34.1-44.9 MEAN CORPUSCULAR VOLUME (BEAKER) (test zapo=102) 88.0 fL 79.4-94.8 MEAN CORPUSCULAR HEMOGLOBIN (BEAKER) (test 27.6 pg 25.6-32.2 kapt=323) MEAN CORPUSCULAR HEMOGLOBIN CONC (BEAKER) (test 31.4 GM/DL 32.2-35.5 sagg=546) RED CELL DISTRIBUTION WIDTH (BEAKER) (test 17.4 % 11.7-14.4 ldvj=765) PLATELET COUNT (BEAKER) (test xrcx=099) 162 K/CU MM 150-450 MEAN PLATELET VOLUME (BEAKER) (test earv=444) 9.2 fL 9.4-12.3 NUCLEATED RED BLOOD CELLS (BEAKER) (test 0 /100 WBC 0-0 zfaj=998) CALCIUM, [id number] 04:13:00 Test Item Value Reference Range Comments CALCIUM IONIZED (BEAKER) (test rdfq=741) 0.98 mmol/L 1.12-1.27 PH, BLOOD (BEAKER) (test bkpi=5040) 7.58 RAD, CHEST, 2 [id number] 23:47:00Reason for exam:->opacitiesFINAL REPORT Portable chest. HISTORY: [...] MDReport Verified Date/Time: 05/29/2019 23:47:08 Reading Location: [address] Consult Reading Room POCT-GLUCOSE [id number] 23:12:00 Test Item Value Reference Range Comments POC-GLUCOSE METER (BEAKER) 192 mg/dL 70-110 TESTED AT [address] (test acmn=6202) [facility] [address] URINALYSIS W/ [id number] 18:14:00 Test Item Value Reference Range Comments COLOR (BEAKER) (test qrig=099) Yellow CLARITY (BEAKER) (test mduu=049) Clear SPECIFIC GRAVITY UA (BEAKER) (test 1.011 1.001-1.035 lial=040) PH UA (BEAKER) (test chgc=865) 8.5 5.0-8.0 PROTEIN UA (BEAKER) (test nqxx=368) 20 mg/dL Negative GLUCOSE UA (BEAKER) (test wiob=479) Negative Negative KETONES UA (BEAKER) (test hset=102) Negative Negative BILIRUBIN UA (BEAKER) (test bbot=347) Negative Negative BLOOD UA (BEAKER) (test hxea=561) Negative Negative NITRITE UA (BEAKER) (test bsli=030) Negative Negative LEUKOCYTE ESTERASE UA (BEAKER) (test Negative Negative bjip=771) UROBILINOGEN UA (BEAKER) (test jfck=146) 12.0 mg/dL 0.2-1.0 RBC UA (BEAKER) (test kalh=837) < /HPF WBC UA (BEAKER) (test tzzo=360) 1 /HPF BACTERIA (BEAKER) (test auzi=646) Rare SQUAMOUS EPITHELIAL (BEAKER) (test 3 /HPF ttbz=636) SOURCE(BEAKER) (test qaza=8911) Urine, Clean Catch POCT-GLUCOSE [id number] 16:55:00 Test Item Value Reference Range Comments POC-GLUCOSE METER (BEAKER) 186 mg/dL 70-110 TESTED AT [address] (test wepl=8789) [facility] [address] TISSUE [id number] 15:15:00Surgical Pathology Report Case: [id number] Authorizing Provider: Shannen Giron MD Collected: 05/28/2019 1448 Ordering Location: [address] Received: 05/29/2019 0915 Service Pathologist: Padilla Reed MD Specimen: Polyp, Colon - Right/Ascending, taken by doug pathak PART A RIGHT ASCENDING COLON POLYP, POLYPECTOMY:TUBULAR ADENOMA. Signing Pathologist Direct Phone Line: [phone] signed by Padilla Reed MD on 05/29/2019 at 3:15 [id number] colonoscopyRight ascending colonReceived in formalin, labelled with the patients name, date of , and medical record number and labelled "right ascending colon polyp" are three portions of silva tissue measuring 0.5 x 0.4 x 0.3 cm in aggregate. Submitted in toto in one cassette. Performed.BODY FLUID CULTURE + GRAM [id number] 12:56:00 Test Item Value Reference Range Comments CULTURE (BEAKER) (test wvxp=9722) No growth GRAM STAIN RESULT (BEAKER) (test No WBCs fsaj=2425) GRAM STAIN RESULT (BEAKER) (test No organisms seen lrnr=61700) POCT-GLUCOSE [id number] 12:37:00 Test Item Value Reference Range Comments POC-GLUCOSE METER (BEAKER) 154 mg/dL 70-110 TESTED AT [address] (test qkmf=6790) [place] [id number] POCT-GLUCOSE [id number] 09:12:00 Test Item Value Reference Range Comments POC-GLUCOSE METER (BEAKER) 76 mg/dL 70-110 TESTED AT [address] (test upfl=5390) [facility] [address] COMPREHENSIVE METABOLIC [id number] 08:19:00 Test Item Value Reference Range Comments TOTAL PROTEIN (BEAKER) 4.9 gm/dL 6.0-8.3 (test lbxa=379) ALBUMIN (BEAKER) (test 3.0 g/dL 3.5-5.0 ecno=6669) ALKALINE PHOSPHATASE 88 U/L 40-150 (BEAKER) (test mdvc=423) BILIRUBIN TOTAL (BEAKER) 1.9 mg/dL 0.2-1.2 (test mkpw=502) SODIUM (BEAKER) (test 141 meq/L 136-145 kjiv=647) POTASSIUM (BEAKER) (test 3.5 meq/L 3.5-5.1 ephs=428) CHLORIDE (BEAKER) (test 100 meq/L 98-107 icgy=581) CO2 (BEAKER) (test 34 meq/L 22-29 ocdj=038) BLOOD UREA NITROGEN 18 mg/dL 7-21 (BEAKER) (test ahje=261) CREATININE (BEAKER) (test 1.50 mg/dL 0.57-1.25 yzzg=045) GLUCOSE RANDOM (BEAKER) 92 mg/dL 70-105 (test iecm=224) CALCIUM (BEAKER) (test 8.5 mg/dL 8.4-10.2 hrti=371) AST (SGOT) (BEAKER) (test 27 U/L 5-34 zykg=008) ALT (SGPT) (BEAKER) (test 10 U/L 6-55 kint=746) EGFR (BEAKER) (test 35 mL/min/1.73 sq m ESTIMATED GFR IS NOT qfql=1489) ACCURATE CREATININE CLEARANCE IN PREDICTING GLOMERULAR FILTRATION RATE. ESTIMATED GFR IS NOT APPLICABLE FOR DIALYSIS PATIENTS. Specimen slightly [id number] 08:18:00 Test Item Value Reference Range Comments PHOSPHORUS (BEAKER) (test fqhn=439) 2.8 mg/dL 2.3-4.7 [id number] 08:18:00 Test Item Value Reference Range Comments MAGNESIUM (BEAKER) (test kalr=841) 2.0 mg/dL 1.6-2.6 CBC W/PLT COUNT & AUTO [id number] 05:59:00 Test Item Value Reference Range Comments WHITE BLOOD CELL COUNT (BEAKER) (test xwab=611) 5.3 K/ L 3.5-10.5 RED BLOOD CELL COUNT (BEAKER) (test wwss=829) 2.79 M/ L 3.93-5.22 HEMOGLOBIN (BEAKER) (test szru=426) 7.7 GM/DL 11.2-15.7 HEMATOCRIT (BEAKER) (test aibw=334) 24.8 % 34.1-44.9 MEAN CORPUSCULAR VOLUME (BEAKER) (test xxgi=553) 88.9 fL 79.4-94.8 MEAN CORPUSCULAR HEMOGLOBIN (BEAKER) (test 27.6 pg 25.6-32.2 xiqy=225) MEAN CORPUSCULAR HEMOGLOBIN CONC (BEAKER) (test 31.0 GM/DL 32.2-35.5 wkef=347) RED CELL DISTRIBUTION WIDTH (BEAKER) (test 17.6 % 11.7-14.4 ynap=504) PLATELET COUNT (BEAKER) (test swho=735) 146 K/CU MM 150-450 MEAN PLATELET VOLUME (BEAKER) (test kmzh=671) 9.6 fL 9.4-12.3 NUCLEATED RED BLOOD CELLS (BEAKER) (test 0 /100 WBC 0-0 rvqz=814) NEUTROPHILS RELATIVE PERCENT (BEAKER) (test 46 % xydw=185) LYMPHOCYTES RELATIVE PERCENT (BEAKER) (test 31 % vlfw=639) MONOCYTES RELATIVE PERCENT (BEAKER) (test 11 % nzdw=925) EOSINOPHILS RELATIVE PERCENT (BEAKER) (test 10 % omeb=987) BASOPHILS RELATIVE PERCENT (BEAKER) (test 2 % ibsf=429) NEUTROPHILS ABSOLUTE COUNT (BEAKER) (test 2.46 K/ L 1.56-6.13 cyzp=349) LYMPHOCYTES ABSOLUTE COUNT (BEAKER) (test 1.66 K/ L 1.18-3.74 ohvc=552) MONOCYTES ABSOLUTE COUNT (BEAKER) (test 0.57 K/ L 0.24-0.36 rdrw=839) EOSINOPHILS ABSOLUTE COUNT (BEAKER) (test 0.52 K/ L 0.04-0.36 yfls=705) BASOPHILS ABSOLUTE COUNT (BEAKER) (test 0.08 K/ L 0.01-0.08 noqh=607) IMMATURE GRANULOCYTES-RELATIVE PERCENT (BEAKER) 0 % 0-1 (test ydwd=0109) CALCIUM, [id number] 05:04:00 Test Item Value Reference Range Comments CALCIUM IONIZED (BEAKER) (test kzpr=074) 1.02 mmol/L 1.12-1.27 PH, BLOOD (BEAKER) (test gsrl=9722) 7.50 POCT-GLUCOSE [id number] 21:27:00 Test Item Value Reference Range Comments POC-GLUCOSE METER (BEAKER) 139 mg/dL 70-110 TESTED AT [address] (test wuew=9631) [place] [address] BASIC METABOLIC [id number] 18:28:00 Test Item Value Reference Range Comments SODIUM (BEAKER) (test 142 meq/L 136-145 czko=068) POTASSIUM (BEAKER) (test 3.5 meq/L 3.5-5.1 dngj=550) CHLORIDE (BEAKER) (test 99 meq/L 98-107 ehvk=063) CO2 (BEAKER) (test 37 meq/L 22-29 jqzb=078) BLOOD UREA NITROGEN 17 mg/dL 7-21 (BEAKER) (test czfq=870) CREATININE (BEAKER) (test 1.38 mg/dL 0.57-1.25 umwk=003) GLUCOSE RANDOM (BEAKER) 78 mg/dL 70-105 (test yizz=232) CALCIUM (BEAKER) (test 8.5 mg/dL 8.4-10.2 rixl=981) EGFR (BEAKER) (test 39 mL/min/1.73 sq m ESTIMATED GFR IS NOT gdul=6481) ACCURATE CREATININE CLEARANCE IN PREDICTING GLOMERULAR FILTRATION RATE. ESTIMATED GFR IS NOT APPLICABLE FOR DIALYSIS PATIENTS. Call [id number] with resultsSpecimen slightly ictericPOCT-GLUCOSE [id number] 18:10:00 Test Item Value Reference Range Comments POC-GLUCOSE METER (BEAKER) 82 mg/dL 70-110 TESTED AT [address] (test fzqs=7413) [place] [id number] CBC W/PLT COUNT & AUTO [id number] 11:56:00 Test Item Value Reference Range Comments WHITE BLOOD CELL COUNT (BEAKER) (test ubyf=984) 5.0 K/ L 3.5-10.5 RED BLOOD CELL COUNT (BEAKER) (test gfpw=317) 2.82 M/ L 3.93-5.22 HEMOGLOBIN (BEAKER) (test srsu=578) 7.9 GM/DL 11.2-15.7 HEMATOCRIT (BEAKER) (test qhcz=537) 25.0 % 34.1-44.9 MEAN CORPUSCULAR VOLUME (BEAKER) (test mvpo=867) 88.7 fL 79.4-94.8 MEAN CORPUSCULAR HEMOGLOBIN (BEAKER) (test 28.0 pg 25.6-32.2 xubj=168) MEAN CORPUSCULAR HEMOGLOBIN CONC (BEAKER) (test 31.6 GM/DL 32.2-35.5 eqhq=643) RED CELL DISTRIBUTION WIDTH (BEAKER) (test 17.6 % 11.7-14.4 ioxa=341) PLATELET COUNT (BEAKER) (test cgvl=662) 155 K/CU MM 150-450 MEAN PLATELET VOLUME (BEAKER) (test gdoz=851) 9.5 fL 9.4-12.3 NUCLEATED RED BLOOD CELLS (BEAKER) (test 0 /100 WBC 0-0 ekmg=869) (CELLAVISION MANUAL DIFF)2019-05-28 11:56:00 Test Item Value Reference Range Comments NEUTROPHILS - REL (CELLAVISION)(BEAKER) (test 69 % octo=7066) LYMPHOCYTES - REL (CELLAVISION)(BEAKER) (test 21 % lqjb=2330) MONOCYTES - REL (CELLAVISION)(BEAKER) (test 3 % xbfo=2107) EOSINOPHILS - REL (CELLAVISION)(BEAKER) (test 5 % dobd=2041) BASOPHILS - REL (CELLAVISION)(BEAKER) (test 1 % hvfg=7818) MYELOCYTES - REL (CELLAVISION)(BEAKER) (test 1 % 0-0 jpfn=0997) NEUTROPHILS - ABS (CELLAVISION)(BEAKER) (test 3.45 K/ul 1.56-6.13 ktdx=3897) LYMPHOCYTES - ABS (CELLAVISION)(BEAKER) (test 1.05 K/ul 1.18-3.74 xrhv=5097) MONOCYTES - ABS (CELLAVISION)(BEAKER) (test 0.15 K/uL 0.24-0.36 giqx=5272) EOSINOPHILS - ABS (CELLAVISION)(BEAKER) (test 0.25 K/uL 0.04-0.36 alfe=2841) BASOPHILS - ABS (CELLAVISION)(BEAKER) (test 0.05 K/uL 0.01-0.08 doxi=7241) MYELOCYTES-ABS (CELLAVISION)(BEAKER) (test 0.05 K/uL 0.00-0.00 jwke=7251) TOTAL COUNTED (BEAKER) (test smxq=9376) 100 PLT MORPHOLOGY (BEAKER) (test mgjw=233) Normal SMUDGE CELLS (BEAKER) (test cyuk=1518) Present POLYCHROMATOPHILLIC RBCS(BEAKER) (test orld=278) 1+ few ANISOCYTOSIS (BEAKER) (test tjue=231) 2+ moderate MICROCYTES (BEAKER) (test huia=673) 2+ moderate POIKILOCYTES (BEAKER) (test azps=160) 1+ few SPHEROCYTES (BEAKER) (test hysm=453) 1+ few PLATELET CONCENTRATION (CELLAVISION)(BEAKER) Adequate (test rrud=1337) Received comment: User comments: Slide comments:POCT-GLUCOSE [id number] 10: 05:00 Test Item Value Reference Range Comments POC-GLUCOSE METER (BEAKER) 82 mg/dL 70-110 TESTED AT [address] (test snih=5593) [facility] [address] POCT-GLUCOSE [id number] 09:07:00 Test Item Value Reference Range Comments POC-GLUCOSE METER (BEAKER) 84 mg/dL 70-110 TESTED AT [address] (test ivyz=5069) [facility] [address] [id number] 06:31:00 Test Item Value Reference Range Comments PHOSPHORUS (BEAKER) (test fvhc=645) 2.5 mg/dL 2.3-4.7 [id number] 06:31:00 Test Item Value Reference Range Comments MAGNESIUM (BEAKER) (test kunh=539) 1.7 mg/dL 1.6-2.6 COMPREHENSIVE METABOLIC [id number] 06:31:00 Test Item Value Reference Range Comments TOTAL PROTEIN (BEAKER) 4.9 gm/dL 6.0-8.3 (test vkoa=359) ALBUMIN (BEAKER) (test 3.1 g/dL 3.5-5.0 ngbr=7946) ALKALINE PHOSPHATASE 82 U/L 40-150 (BEAKER) (test hkde=281) BILIRUBIN TOTAL (BEAKER) 2.3 mg/dL 0.2-1.2 (test uhuz=689) SODIUM (BEAKER) (test 143 meq/L 136-145 dnux=591) POTASSIUM (BEAKER) (test 3.5 meq/L 3.5-5.1 bqik=877) CHLORIDE (BEAKER) (test 100 meq/L 98-107 rywb=017) CO2 (BEAKER) (test 37 meq/L 22-29 xdur=841) BLOOD UREA NITROGEN 16 mg/dL 7-21 (BEAKER) (test lixy=574) CREATININE (BEAKER) (test 1.37 mg/dL 0.57-1.25 qxjq=691) GLUCOSE RANDOM (BEAKER) 96 mg/dL 70-105 (test iguy=090) CALCIUM (BEAKER) (test 8.6 mg/dL 8.4-10.2 gdbv=662) AST (SGOT) (BEAKER) (test 30 U/L 5-34 ukeu=300) ALT (SGPT) (BEAKER) (test 10 U/L 6-55 uodc=314) EGFR (BEAKER) (test 39 mL/min/1.73 sq m ESTIMATED GFR IS NOT vtdn=3625) ACCURATE CREATININE CLEARANCE IN PREDICTING GLOMERULAR FILTRATION RATE. ESTIMATED GFR IS NOT APPLICABLE FOR DIALYSIS PATIENTS. Specimen slightly ictericB-TYPE NATRIURETIC FACTOR (BNP)2019-05-28 06:19:00 Test Item Value Reference Range Comments B-TYPE NATRIURETIC PEPTIDE (BEAKER) (test 381 pg/mL 0-100 tvdy=183) CALCIUM, [id number] 05:25:00 Test Item Value Reference Range Comments CALCIUM IONIZED (BEAKER) (test adwn=679) 1.03 mmol/L 1.12-1.27 PH, BLOOD (BEAKER) (test obih=3887) 7.49 POCT-GLUCOSE [id number] 22:42:00 Test Item Value Reference Range Comments POC-GLUCOSE METER (BEAKER) 174 mg/dL 70-110 TESTED AT [address] (test asyv=2951) [facility] [address] [id number] 17:57:00 Test Item Value Reference Range Comments SODIUM (BEAKER) (test luch=204) 140 meq/L 136-145 POTASSIUM (BEAKER) (test 3.9 meq/L 3.5-5.1 Specimen slightly hemolyzed vbbe=260) CHLORIDE (BEAKER) (test 99 meq/L 98-107 nntd=588) CO2 (BEAKER) (test tinl=968) 35 meq/L 22-29 Call [id number] 17:50:00 Test Item Value Reference Range Comments POC-GLUCOSE METER (BEAKER) 151 mg/dL 70-110 TESTED AT [address] (test ioec=5770) [place] [id number] POCT-GLUCOSE [id number] 12:36:00 Test Item Value Reference Range Comments POC-GLUCOSE METER (BEAKER) 123 mg/dL 70-110 TESTED AT [address] (test cwaj=1378) [place] [id number] POCT-GLUCOSE [id number] 08:15:00 Test Item Value Reference Range Comments POC-GLUCOSE METER (BEAKER) 121 mg/dL 70-110 TESTED AT [address] (test xzxs=4191) [place] [id number] [id number] 07:00:00 Test Item Value Reference Range Comments PHOSPHORUS (BEAKER) (test mwky=232) 1.9 mg/dL 2.3-4.7 [id number] 07:00:00 Test Item Value Reference Range Comments MAGNESIUM (BEAKER) (test gdbv=804) 1.6 mg/dL 1.6-2.6 COMPREHENSIVE METABOLIC [id number] 07:00:00 Test Item Value Reference Range Comments TOTAL PROTEIN (BEAKER) 4.9 gm/dL 6.0-8.3 (test eaao=730) ALBUMIN (BEAKER) (test 3.1 g/dL 3.5-5.0 vdlf=4459) ALKALINE PHOSPHATASE 75 U/L 40-150 (BEAKER) (test msuw=821) BILIRUBIN TOTAL (BEAKER) 1.9 mg/dL 0.2-1.2 (test plhf=675) SODIUM (BEAKER) (test 139 meq/L 136-145 pnyu=344) POTASSIUM (BEAKER) (test 4.3 meq/L 3.5-5.1 ubjs=887) CHLORIDE (BEAKER) (test 99 meq/L 98-107 hnmv=084) CO2 (BEAKER) (test 37 meq/L 22-29 ummx=120) BLOOD UREA NITROGEN 16 mg/dL 7-21 (BEAKER) (test bian=509) CREATININE (BEAKER) (test 1.29 mg/dL 0.57-1.25 xwpb=630) GLUCOSE RANDOM (BEAKER) 139 mg/dL 70-105 (test rjzu=308) CALCIUM (BEAKER) (test 8.5 mg/dL 8.4-10.2 tsbe=356) AST (SGOT) (BEAKER) (test 23 U/L 5-34 jdpv=133) ALT (SGPT) (BEAKER) (test 8 U/L 6-55 zaoi=229) EGFR (BEAKER) (test 42 mL/min/1.73 sq m ESTIMATED GFR IS NOT wkew=5484) ACCURATE CREATININE CLEARANCE IN PREDICTING GLOMERULAR FILTRATION RATE. ESTIMATED GFR IS NOT APPLICABLE FOR DIALYSIS PATIENTS. Specimen slightly ictericCBC W/PLT COUNT & AUTO [id number] 06:20 :00 Test Item Value Reference Range Comments WHITE BLOOD CELL COUNT (BEAKER) (test aobe=886) 4.7 K/ L 3.5-10.5 RED BLOOD CELL COUNT (BEAKER) (test twdk=420) 2.71 M/ L 3.93-5.22 HEMOGLOBIN (BEAKER) (test npls=208) 7.5 GM/DL 11.2-15.7 HEMATOCRIT (BEAKER) (test fkva=974) 23.9 % 34.1-44.9 MEAN CORPUSCULAR VOLUME (BEAKER) (test otvs=699) 88.2 fL 79.4-94.8 MEAN CORPUSCULAR HEMOGLOBIN (BEAKER) (test 27.7 pg 25.6-32.2 dbxa=117) MEAN CORPUSCULAR HEMOGLOBIN CONC (BEAKER) (test 31.4 GM/DL 32.2-35.5 ucfp=330) RED CELL DISTRIBUTION WIDTH (BEAKER) (test 17.6 % 11.7-14.4 ejdl=542) PLATELET COUNT (BEAKER) (test gpzr=183) 137 K/CU MM 150-450 MEAN PLATELET VOLUME (BEAKER) (test kfvl=929) 9.6 fL 9.4-12.3 NUCLEATED RED BLOOD CELLS (BEAKER) (test 0 /100 WBC 0-0 yrdi=823) NEUTROPHILS RELATIVE PERCENT (BEAKER) (test 45 % oujr=250) LYMPHOCYTES RELATIVE PERCENT (BEAKER) (test 33 % ucqw=979) MONOCYTES RELATIVE PERCENT (BEAKER) (test 12 % meen=970) EOSINOPHILS RELATIVE PERCENT (BEAKER) (test 9 % lprc=275) BASOPHILS RELATIVE PERCENT (BEAKER) (test 1 % zsre=747) NEUTROPHILS ABSOLUTE COUNT (BEAKER) (test 2.13 K/ L 1.56-6.13 fxcc=151) LYMPHOCYTES ABSOLUTE COUNT (BEAKER) (test 1.56 K/ L 1.18-3.74 swrx=982) MONOCYTES ABSOLUTE COUNT (BEAKER) (test 0.57 K/ L 0.24-0.36 vddt=054) EOSINOPHILS ABSOLUTE COUNT (BEAKER) (test 0.41 K/ L 0.04-0.36 ypij=541) BASOPHILS ABSOLUTE COUNT (BEAKER) (test 0.05 K/ L 0.01-0.08 sgcw=689) IMMATURE GRANULOCYTES-RELATIVE PERCENT (BEAKER) 0 % 0-1 (test odgg=6741) CALCIUM, [id number] 05:29:00 Test Item Value Reference Range Comments CALCIUM IONIZED (BEAKER) (test noue=783) 1.02 mmol/L 1.12-1.27 PH, BLOOD (BEAKER) (test mikc=9611) 7.53 POCT-GLUCOSE [id number] 22:13:00 Test Item Value Reference Range Comments POC-GLUCOSE METER (BEAKER) 315 mg/dL 70-110 Notified ALEXI ENNIS/TESTED AT [facility] (test bayb=3055) [address] [facility] [address] POCT-GLUCOSE [id number] 18:43:00 Test Item Value Reference Range Comments POC-GLUCOSE METER (BEAKER) 204 mg/dL 70-110 TESTED AT [address] (test dlkf=7567) [facility] [address] U/S, [id number] 17:14:00Reason for exam:->ascitesFINAL REPORT Ultrasound guided paracentesis. Clinical History: Ascites. Sedation: None. Operators: This procedure was performed by SARIKA Lee under direct supervision of Akil Chung M.D. Improvement Manager: None. Estimated Blood Loss: < 1 cc. [...] was achieved with 2% lidocaine, a 5 Bhutanese one-step catheter was advanced into the peritoneal cavity under ultrasound guidance. After completion of drainage, the catheter was removed. There was no evidence of complication. Impression:Successful ultrasound guided paracentesis. Signed: Akil Chung MDReport Verified Date/Time: 05/26/2019 17:14:25 Reading Location : [address] Ultrasound Reading Room U/S, [id number] 17:12:00Reason for exam:->ascitesFINAL REPORT Ultrasound guided paracentesis Clinical History: Ascites. Sedation: None. Gas Station Supervisor: Micheline Pena PA-C Supervising Physician: Shravan Ruiz MD Improvement Manager: None. Estimated Blood Loss: < 1 mL. [...] anesthesia was achieved with lidocaine, a 5 Bhutanese one-step catheter was advanced into theperitoneal cavity under ultrasound guidance. After completion of drainage, the catheter was removed.There was no evidence of complication. Impression:Successful ultrasound guided paracentesis. Signed:Shravan Ruiz Verified Date/Time: 05/26/2019 17:12:51 Reading Location: [address] Ultrasound Reading Room POCT-GLUCOSE [id number] 17:02: 00 Test Item Value Reference Range Comments POC-GLUCOSE METER (BEAKER) 204 mg/dL 70-110 TESTED AT [address] (test ofhf=5200) [place] [address] POCT-GLUCOSE [id number] 13:52:00 Test Item Value Reference Range Comments POC-GLUCOSE METER (BEAKER) 185 mg/dL 70-110 TESTED AT [address] (test lndv=1066) [place] [address] BODY FLUID CELL COUNT WITH [id number] 13:12:00 Test Item Value Reference Range Comments APPEARANCE FLUID (BEAKER) (test alrx=189) Slightly Hazy Clear COLOR FLUID (BEAKER) (test vldb=829) Yellow Colorless, Straw RBC FLUID (BEAKER) (test pams=294) 3000 /cu mm <=1 ADJUSTED WBC FLUID (BEAKER) (test yavq=2475) 107 /cu mm <=5 LINING CELLS (BEAKER) (test bjke=6531) 13 /cu mm <=1 NEUTROPHILS FLUID (BEAKER) (test gshx=4718) 0 % LYMPHS FLUID (BEAKER) (test ggru=130) 21 % MONO/MACROPHAGE FLUID (BEAKER) (test 78 % frwm=537) EOSINOPHILS FLUID (BEAKER) (test ktgs=769) 1 % BASO FLUID (BEAKER) (test lnfj=351) 0 % CONTAINER BODY FLUID (BEAKER) (test EDTA Tube xfrq=6346) POCT-GLUCOSE [id number] 08:40:00 Test Item Value Reference Range Comments POC-GLUCOSE METER (BEAKER) 113 mg/dL 70-110 TESTED AT [address] (test xkkn=5424) [place] [address] [id number] 07:18:00 Test Item Value Reference Range Comments T3 TOTAL (BEAKER) (test 34 ng/dL 48-159 Performed at [facility]. Refer. adni=421) Range:76-181 [id number] 05:45:00 Test Item Value Reference Range Comments PHOSPHORUS (BEAKER) (test anuz=755) 1.7 mg/dL 2.3-4.7 [id number] 05:45:00 Test Item Value Reference Range Comments MAGNESIUM (BEAKER) (test bnpw=780) 1.8 mg/dL 1.6-2.6 COMPREHENSIVE METABOLIC [id number] 05:45:00 Test Item Value Reference Range Comments TOTAL PROTEIN (BEAKER) 5.1 gm/dL 6.0-8.3 (test xkpr=723) ALBUMIN (BEAKER) (test 3.1 g/dL 3.5-5.0 zjhg=1368) ALKALINE PHOSPHATASE 88 U/L 40-150 (BEAKER) (test ducs=579) BILIRUBIN TOTAL (BEAKER) 1.6 mg/dL 0.2-1.2 (test byqd=369) SODIUM (BEAKER) (test 140 meq/L 136-145 fhtb=366) POTASSIUM (BEAKER) (test 3.8 meq/L 3.5-5.1 swel=161) CHLORIDE (BEAKER) (test 100 meq/L 98-107 hwrk=637) CO2 (BEAKER) (test 36 meq/L 22-29 rbbz=535) BLOOD UREA NITROGEN 16 mg/dL 7-21 (BEAKER) (test qsnu=170) CREATININE (BEAKER) (test 1.37 mg/dL 0.57-1.25 sexa=915) GLUCOSE RANDOM (BEAKER) 159 mg/dL 70-105 (test nkyl=036) CALCIUM (BEAKER) (test 8.4 mg/dL 8.4-10.2 nouk=159) AST (SGOT) (BEAKER) (test 26 U/L 5-34 fqzk=023) ALT (SGPT) (BEAKER) (test 10 U/L 6-55 aoyv=360) EGFR (BEAKER) (test 39 mL/min/1.73 sq m ESTIMATED GFR IS NOT wluy=6584) ACCURATE CREATININE CLEARANCE IN PREDICTING GLOMERULAR FILTRATION RATE. ESTIMATED GFR IS NOT APPLICABLE FOR DIALYSIS PATIENTS. CALCIUM, [id number] 05:11:00 Test Item Value Reference Range Comments CALCIUM IONIZED (BEAKER) (test ujty=422) 0.99 mmol/L 1.12-1.27 PH, BLOOD (BEAKER) (test mipa=7209) 7.57 CBC W/PLT COUNT & AUTO [id number] 05:04:00 Test Item Value Reference Range Comments WHITE BLOOD CELL COUNT (BEAKER) (test suga=957) 4.6 K/ L 3.5-10.5 RED BLOOD CELL COUNT (BEAKER) (test dtpb=341) 2.81 M/ L 3.93-5.22 HEMOGLOBIN (BEAKER) (test tqwx=336) 7.8 GM/DL 11.2-15.7 HEMATOCRIT (BEAKER) (test bnsc=295) 24.6 % 34.1-44.9 MEAN CORPUSCULAR VOLUME (BEAKER) (test ebox=306) 87.5 fL 79.4-94.8 MEAN CORPUSCULAR HEMOGLOBIN (BEAKER) (test 27.8 pg 25.6-32.2 jsrp=969) MEAN CORPUSCULAR HEMOGLOBIN CONC (BEAKER) (test 31.7 GM/DL 32.2-35.5 snjv=443) RED CELL DISTRIBUTION WIDTH (BEAKER) (test 17.2 % 11.7-14.4 xvnp=523) PLATELET COUNT (BEAKER) (test yibs=937) 129 K/CU MM 150-450 MEAN PLATELET VOLUME (BEAKER) (test zrbd=924) 9.0 fL 9.4-12.3 NUCLEATED RED BLOOD CELLS (BEAKER) (test 0 /100 WBC 0-0 hwby=192) NEUTROPHILS RELATIVE PERCENT (BEAKER) (test 47 % mczo=334) LYMPHOCYTES RELATIVE PERCENT (BEAKER) (test 29 % nagn=733) MONOCYTES RELATIVE PERCENT (BEAKER) (test 13 % cpby=080) EOSINOPHILS RELATIVE PERCENT (BEAKER) (test 11 % vhgf=071) BASOPHILS RELATIVE PERCENT (BEAKER) (test 1 % anjx=178) NEUTROPHILS ABSOLUTE COUNT (BEAKER) (test 2.17 K/ L 1.56-6.13 zxok=600) LYMPHOCYTES ABSOLUTE COUNT (BEAKER) (test 1.32 K/ L 1.18-3.74 lkio=049) MONOCYTES ABSOLUTE COUNT (BEAKER) (test 0.58 K/ L 0.24-0.36 rcyh=139) EOSINOPHILS ABSOLUTE COUNT (BEAKER) (test 0.49 K/ L 0.04-0.36 hdsm=547) BASOPHILS ABSOLUTE COUNT (BEAKER) (test 0.06 K/ L 0.01-0.08 duye=209) IMMATURE GRANULOCYTES-RELATIVE PERCENT (BEAKER) 0 % 0-1 (test ghzz=3919) POCT-GLUCOSE [id number] 23:10:00 Test Item Value Reference Range Comments POC-GLUCOSE METER (BEAKER) 239 mg/dL 70-110 TESTED AT [address] (test xdwk=2486) [place] [address] [id number] 19:02:00 Test Item Value Reference Range Comments SODIUM (BEAKER) (test zouj=446) 138 meq/L 136-145 POTASSIUM (BEAKER) (test ynox=012) 3.7 meq/L 3.5-5.1 CHLORIDE (BEAKER) (test yupz=247) 100 meq/L 98-107 CO2 (BEAKER) (test czag=089) 31 meq/L 22-29 Call [id number] with resultsPOCT-GLUCOSE [id number] 16:50:00 Test Item Value Reference Range Comments POC-GLUCOSE METER (BEAKER) 203 mg/dL 70-110 TESTED AT [address] (test oxqq=8794) [place] [address] POCT-GLUCOSE [id number] 12:49:00 Test Item Value Reference Range Comments POC-GLUCOSE METER (BEAKER) 219 mg/dL 70-110 TESTED AT [address] (test imas=6302) [place] [address] ANTI-NUCLEAR ANTIBODY (QUE)[id number] 10:03:00 Test Item Value Reference Range Comments ANTI-NUCLEAR ANTIBODY (QUE) (BEAKER) (test Negative Negative xgby=918) Test performed by IFA method.Test performed by IFA method.POCT-GLUCOSE [id number] 08:54:00 Test Item Value Reference Range Comments POC-GLUCOSE METER (BEAKER) 125 mg/dL 70-110 TESTED AT [address] (test kmtm=3963) [place] [address] BASIC METABOLIC [id number] 07:41:00 Test Item Value Reference Range Comments SODIUM (BEAKER) (test 141 meq/L 136-145 fens=280) POTASSIUM (BEAKER) (test 3.0 meq/L 3.5-5.1 zsbv=399) CHLORIDE (BEAKER) (test 101 meq/L 98-107 etxv=064) CO2 (BEAKER) (test 35 meq/L 22-29 xysf=766) BLOOD UREA NITROGEN 16 mg/dL 7-21 (BEAKER) (test aukt=034) CREATININE (BEAKER) (test 1.31 mg/dL 0.57-1.25 qiky=206) GLUCOSE RANDOM (BEAKER) 136 mg/dL 70-105 (test qknj=592) CALCIUM (BEAKER) (test 7.9 mg/dL 8.4-10.2 utuf=181) EGFR (BEAKER) (test 41 mL/min/1.73 sq m ESTIMATED GFR IS NOT kscf=2333) ACCURATE CREATININE CLEARANCE IN PREDICTING GLOMERULAR FILTRATION RATE. ESTIMATED GFR IS NOT APPLICABLE FOR DIALYSIS PATIENTS. [id number] 07:32:00 Test Item Value Reference Range Comments PHOSPHORUS (BEAKER) (test krot=987) 2.0 mg/dL 2.3-4.7 [id number] 07:32:00 Test Item Value Reference Range Comments MAGNESIUM (BEAKER) (test zvha=759) 1.6 mg/dL 1.6-2.6 HEPATIC FUNCTION [id number] 07:32:00 Test Item Value Reference Range Comments TOTAL PROTEIN (BEAKER) (test kwda=240) 4.9 gm/dL 6.0-8.3 ALBUMIN (BEAKER) (test fpdb=2279) 3.0 g/dL 3.5-5.0 BILIRUBIN TOTAL (BEAKER) (test laql=863) 1.4 mg/dL 0.2-1.2 BILIRUBIN DIRECT (BEAKER) (test mdke=321) 0.7 mg/dL 0.1-0.5 ALKALINE PHOSPHATASE (BEAKER) (test hmsh=328) 86 U/L 40-150 AST (SGOT) (BEAKER) (test rctl=843) 25 U/L 5-34 ALT (SGPT) (BEAKER) (test zybv=474) 10 U/L 6-55 CBC W/PLT COUNT & AUTO [id number] 06:11:00 Test Item Value Reference Range Comments WHITE BLOOD CELL COUNT (BEAKER) (test luvj=648) 4.2 K/ L 3.5-10.5 RED BLOOD CELL COUNT (BEAKER) (test alud=615) 2.68 M/ L 3.93-5.22 HEMOGLOBIN (BEAKER) (test hzke=676) 7.4 GM/DL 11.2-15.7 HEMATOCRIT (BEAKER) (test qnxs=892) 23.5 % 34.1-44.9 MEAN CORPUSCULAR VOLUME (BEAKER) (test nolk=579) 87.7 fL 79.4-94.8 MEAN CORPUSCULAR HEMOGLOBIN (BEAKER) (test 27.6 pg 25.6-32.2 rzdx=270) MEAN CORPUSCULAR HEMOGLOBIN CONC (BEAKER) (test 31.5 GM/DL 32.2-35.5 sahh=314) RED CELL DISTRIBUTION WIDTH (BEAKER) (test 18.2 % 11.7-14.4 fefv=960) PLATELET COUNT (BEAKER) (test xfkn=246) 140 K/CU MM 150-450 MEAN PLATELET VOLUME (BEAKER) (test esrc=109) 10.3 fL 9.4-12.3 NUCLEATED RED BLOOD CELLS (BEAKER) (test 0 /100 WBC 0-0 cyvq=328) NEUTROPHILS RELATIVE PERCENT (BEAKER) (test 44 % ghhm=764) LYMPHOCYTES RELATIVE PERCENT (BEAKER) (test 33 % jtvg=275) MONOCYTES RELATIVE PERCENT (BEAKER) (test 12 % yias=232) EOSINOPHILS RELATIVE PERCENT (BEAKER) (test 10 % lyfs=142) BASOPHILS RELATIVE PERCENT (BEAKER) (test 2 % drpu=632) NEUTROPHILS ABSOLUTE COUNT (BEAKER) (test 1.82 K/ L 1.56-6.13 onqy=324) LYMPHOCYTES ABSOLUTE COUNT (BEAKER) (test 1.36 K/ L 1.18-3.74 zfur=875) MONOCYTES ABSOLUTE COUNT (BEAKER) (test 0.48 K/ L 0.24-0.36 ldbl=534) EOSINOPHILS ABSOLUTE COUNT (BEAKER) (test 0.42 K/ L 0.04-0.36 qlnm=330) BASOPHILS ABSOLUTE COUNT (BEAKER) (test 0.07 K/ L 0.01-0.08 anuz=452) IMMATURE GRANULOCYTES-RELATIVE PERCENT (BEAKER) 0 % 0-1 (test lszx=6384) PROTHROMBIN [id number] 05:31:00 Test Item Value Reference Range Comments PROTIME (BEAKER) (test ybzh=358) 14.8 seconds 11.9-14.2 INR (BEAKER) (test djmi=936) 1.2 <=5.9 Effective 04/01/2019: PT Reference Range ChangeNew: 11.9-14.2 Previous: 11.7- 14.7RECOMMENDED COUMADIN/WARFARIN INR THERAPY RANGESSTANDARD DOSE: 2.0-3.0 Includes: PROPHYLAXIS for venous thrombosis, systemic embolization; TREATMENT for venous thrombosis and/or pulmonary embolus.HIGH RISK: Target INR is2.5-3.5 for patients wiht mechanical heart valves.BLOOD [id number] 02:01:00 Test Item Value Reference Range Comments CULTURE (BEAKER) (test lmqd=5179) No growth in 5 days BLOOD [id number] 02:01:00 Test Item Value Reference Range Comments CULTURE (BEAKER) (test jele=0392) No growth in 5 days POCT-GLUCOSE [id number] 23:07:00 Test Item Value Reference Range Comments POC-GLUCOSE METER (BEAKER) 217 mg/dL 70-110 TESTED AT [address] (test bsul=2234) [place] [id number] POCT-GLUCOSE [id number] 17:54:00 Test Item Value Reference Range Comments POC-GLUCOSE METER (BEAKER) 138 mg/dL 70-110 TESTED AT [address] (test hykv=8232) [place] [id number] POCT-GLUCOSE [id number] 12:22:00 Test Item Value Reference Range Comments POC-GLUCOSE METER (BEAKER) 114 mg/dL 70-110 TESTED AT [address] (test fczs=6178) [place] [id number] POCT-GLUCOSE [id number] 07:39:00 Test Item Value Reference Range Comments POC-GLUCOSE METER (BEAKER) 124 mg/dL 70-110 TESTED AT [address] (test uozd=7789) [place] [id number] HEPATIC FUNCTION [id number] 05:49:00 Test Item Value Reference Range Comments TOTAL PROTEIN (BEAKER) (test gfms=092) 5.1 gm/dL 6.0-8.3 ALBUMIN (BEAKER) (test ygpb=7054) 2.9 g/dL 3.5-5.0 BILIRUBIN TOTAL (BEAKER) (test rwgm=238) 1.3 mg/dL 0.2-1.2 BILIRUBIN DIRECT (BEAKER) (test hgzu=183) 0.7 mg/dL 0.1-0.5 ALKALINE PHOSPHATASE (BEAKER) (test elir=327) 91 U/L 40-150 AST (SGOT) (BEAKER) (test jcjo=864) 30 U/L 5-34 ALT (SGPT) (BEAKER) (test hhai=598) 10 U/L 6-55 BASIC METABOLIC [id number] 05:49:00 Test Item Value Reference Range Comments SODIUM (BEAKER) (test 140 meq/L 136-145 sskg=564) POTASSIUM (BEAKER) (test 3.2 meq/L 3.5-5.1 yjjx=431) CHLORIDE (BEAKER) (test 103 meq/L 98-107 sfix=970) CO2 (BEAKER) (test 27 meq/L 22-29 iyoi=679) BLOOD UREA NITROGEN 17 mg/dL 7-21 (BEAKER) (test kaay=926) CREATININE (BEAKER) (test 1.30 mg/dL 0.57-1.25 agkx=789) GLUCOSE RANDOM (BEAKER) 143 mg/dL 70-105 (test oyxq=154) CALCIUM (BEAKER) (test 7.9 mg/dL 8.4-10.2 rudb=142) EGFR (BEAKER) (test 42 mL/min/1.73 sq m ESTIMATED GFR IS NOT lbya=0850) ACCURATE CREATININE CLEARANCE IN PREDICTING GLOMERULAR FILTRATION RATE. ESTIMATED GFR IS NOT APPLICABLE FOR DIALYSIS PATIENTS. PROTHROMBIN [id number] 05:32:00 Test Item Value Reference Range Comments PROTIME (BEAKER) (test ouds=001) 14.7 seconds 11.9-14.2 INR (BEAKER) (test iveg=981) 1.2 <=5.9 Effective 04/01/2019: PT Reference Range ChangeNew: 11.9-14.2 Previous: 11.7- 14.7RECOMMENDED COUMADIN/WARFARIN INR THERAPY RANGESSTANDARD DOSE: 2.0-3.0 Includes: PROPHYLAXIS for venous thrombosis, systemic embolization; TREATMENT for venous thrombosis and/or pulmonary embolus.HIGH RISK: Target INR is2.5-3.5 for patients wiht mechanical heart valves.CBC W/PLT COUNT & AUTO [id number] 05:09:00 Test Item Value Reference Range Comments WHITE BLOOD CELL COUNT (BEAKER) (test gzsi=547) 4.7 K/ L 3.5-10.5 RED BLOOD CELL COUNT (BEAKER) (test sofv=413) 2.86 M/ L 3.93-5.22 HEMOGLOBIN (BEAKER) (test uqms=817) 7.9 GM/DL 11.2-15.7 HEMATOCRIT (BEAKER) (test dnbr=796) 25.3 % 34.1-44.9 MEAN CORPUSCULAR VOLUME (BEAKER) (test xsrh=086) 88.5 fL 79.4-94.8 MEAN CORPUSCULAR HEMOGLOBIN (BEAKER) (test 27.6 pg 25.6-32.2 yplq=107) MEAN CORPUSCULAR HEMOGLOBIN CONC (BEAKER) (test 31.2 GM/DL 32.2-35.5 yhkl=998) RED CELL DISTRIBUTION WIDTH (BEAKER) (test 17.4 % 11.7-14.4 hwjs=574) PLATELET COUNT (BEAKER) (test atmb=671) 141 K/CU MM 150-450 MEAN PLATELET VOLUME (BEAKER) (test envj=364) 9.3 fL 9.4-12.3 NUCLEATED RED BLOOD CELLS (BEAKER) (test 0 /100 WBC 0-0 qrau=228) NEUTROPHILS RELATIVE PERCENT (BEAKER) (test 50 % nbpt=464) LYMPHOCYTES RELATIVE PERCENT (BEAKER) (test 28 % zxks=941) MONOCYTES RELATIVE PERCENT (BEAKER) (test 11 % isge=706) EOSINOPHILS RELATIVE PERCENT (BEAKER) (test 10 % ecfg=422) BASOPHILS RELATIVE PERCENT (BEAKER) (test 1 % mhvd=204) NEUTROPHILS ABSOLUTE COUNT (BEAKER) (test 2.33 K/ L 1.56-6.13 agtd=378) LYMPHOCYTES ABSOLUTE COUNT (BEAKER) (test 1.31 K/ L 1.18-3.74 skyc=831) MONOCYTES ABSOLUTE COUNT (BEAKER) (test 0.51 K/ L 0.24-0.36 enhi=005) EOSINOPHILS ABSOLUTE COUNT (BEAKER) (test 0.46 K/ L 0.04-0.36 qusd=405) BASOPHILS ABSOLUTE COUNT (BEAKER) (test 0.06 K/ L 0.01-0.08 xszm=436) IMMATURE GRANULOCYTES-RELATIVE PERCENT (BEAKER) 0 % 0-1 (test rwhc=6113) BLOOD GAS, [id number] 22:21:00 Test Item Value Reference Range Comments PH ARTERIAL (BEAKER) (test gare=617) 7.49 7.35-7.45 PCO2 ARTERIAL (BEAKER) (test qplu=511) 43 mmHg 35-45 PO2 ARTERIAL (BEAKER) (test gejn=544) 56 mmHg 80-90 O2 SATURATION ARTERIAL (BEAKER) (test somd=867) 92.5 % 96.0-97.0 HCO3 ARTERIAL (BEAKER) (test rqlt=708) 32 mmol/L 21-29 BASE EXCESS ARTERIAL (BEAKER) (test pfow=631) 7.9 mmol/L -2.0-3.0 PATIENT TEMPERATURE (BEAKER) (test sibb=4596) 35.8 C FIO2 (BEAKER) (test acon=2634) 21.0 % POCT-GLUCOSE [id number] 21:14:00 Test Item Value Reference Range Comments POC-GLUCOSE METER (BEAKER) 259 mg/dL 70-110 TESTED AT [address] (test uzio=4175) [place] [address] BODY FLUID CULTURE + GRAM [id number] 18:00:00 Test Item Value Reference Range Comments CULTURE (BEAKER) (test bwsd=8746) No growth GRAM STAIN RESULT (BEAKER) (test No WBCs zxwj=3103) GRAM STAIN RESULT (BEAKER) (test No organisms seen hjwt=55132) POCT-GLUCOSE [id number] 17:23:00 Test Item Value Reference Range Comments POC-GLUCOSE METER (BEAKER) 201 mg/dL 70-110 TESTED AT [address] (test xsbw=5666) [place] [address] RAD, MANDIBLE, MIN 4 [id number] 15:00:00Reason for exam:->liver transplant evalShould this be [...] Martinez MDReport Verified Date/Time: 05/23/201915:00:10 Reading Location: [address] Transitional Reading Room CRYPTOCOCCAL [id number] 14:59:00 Test Item Value Reference Range Comments CRYPTOCOCCAL ANTIGEN, SERUM (BEAKER) (test Negative Negative, Interference tkmx=9288) [id number] 14:45:00 Test Item Value Reference Range Comments RPR SCREEN (BEAKER) (test xrsd=201) Nonreactive Nonreactive CYTOMEGALOVIRUS ANTIBODY, [id number] 13:48:00 Test Item Value Reference Range Comments CYTOMEGALOVIRUS, IGG (BEAKER) (test ngdj=3319) Positive Negative, Equivocal CMV IgG Result Interpretation: </=0.8 Al Negative 0.9-1.0 Al Equivocal &gt ;/=1.1 Al PositiveCYTOMEGALOVIRUS ANTIBODY, [id number] 13:48:00 Test Item Value Reference Range Comments CYTOMEGALOVIRUS IGM ANTIBODY (BEAKER) (test Negative Negative, Equivocal djsl=5103) CMV IgM Result Interpretation: </=0.8 Al Negative 0.9-1.0 Al Equivocal >/=1.1 Al PositiveEBV ANTIBODY, [id number] 13:48:00 Test Item Value Reference Range Comments BERTRAND BOLES VIRAL CAPSID ANTIGEN IGG (BEAKER) Positive Negative, Equivocal (test jchv=5430) Bertrand Boles Viral Capsid Antigen IgG Result Interpretation: </=0.8 Al Negative 0.9-1.0 Al Equivocal >/=1.1 Al PositiveEBV ANTIBODY, [id number] 13:48:00 Test Item Value Reference Range Comments BERTRAND BOLES VIRAL CAPSID ANTIGEN IGM (BEAKER) Negative Negative, Equivocal (test nosk=5538) Bertrand Boles Viral Capsid Antigen IgM Result Interpretation: </=0.8 Al Negative 0.9-1.0 Al Equivocal >/=1.1 Al PositiveVARICELLA ZOSTER ANTIBODY , [id number] 13:48:00 Test Item Value Reference Range Comments VARICELLA ZOSTER IGG (AL) (BEAKER) (test thcz=9570) 0.9 VARICELLA ZOSTER RESULT INTERPRETATIONS: <=0.8 Al Nonreactive: Presumed non-immune to VZV 0.9-1.0 Al Equivocal >=1.1 Al Reactive: Presumed immune to VZVRUBELLA ANTIBODY, [id number] 13:48:00 Test Item Value Reference Range Comments RUBELLA IGG QUANTITATION (AKER) (test rqtz=712) 12.0 IU/mL <8.0 Rubella IgG Result Interpretation: </=7.0 IU/mL Negative - Presumed non- immune 8.0 - 9.9 IU/mL Equivocal >=10.0 IU/mL Positive - Presumed immunePOCT-GLUCOSE [id number] 11:41:00 Test Item Value Reference Range Comments POC-GLUCOSE METER (BEAKER) 162 mg/dL 70-110 TESTED AT [address] (test vtwf=8614) [facility] [address] POCT-GLUCOSE [id number] 10:06:00 Test Item Value Reference Range Comments POC-GLUCOSE METER (BEAKER) 95 mg/dL 70-110 TESTED AT [address] (test ondi=8221) [place] [id number] IRON, TIBC, % SAT. (WITHOUT FERRITIN)2019-05-23 07:32:00 Test Item Value Reference Range Comments IRON (BEAKER) (test ekwd=524) 30.0 ug/dL 40.0-160.0 TOTAL IRON BINDING CAPACITY (BEAKER) (test 143 ug/dL 250-450 ymxv=729) IRON % SATURATION (2) (BEAKER) (test wqxu=5964) 21 % 20-55 [id number] 06:29:00 Test Item Value Reference Range Comments PHOSPHORUS (BEAKER) (test aixf=825) 1.9 mg/dL 2.3-4.7 [id number] 06:29:00 Test Item Value Reference Range Comments MAGNESIUM (BEAKER) (test ykyp=788) 1.5 mg/dL 1.6-2.6 HEPATIC FUNCTION [id number] 06:29:00 Test Item Value Reference Range Comments TOTAL PROTEIN (BEAKER) (test xwss=958) 5.2 gm/dL 6.0-8.3 ALBUMIN (BEAKER) (test jnua=9572) 3.0 g/dL 3.5-5.0 BILIRUBIN TOTAL (BEAKER) (test xihk=845) 1.6 mg/dL 0.2-1.2 BILIRUBIN DIRECT (BEAKER) (test omks=172) 0.8 mg/dL 0.1-0.5 ALKALINE PHOSPHATASE (BEAKER) (test nysr=956) 87 U/L 40-150 AST (SGOT) (BEAKER) (test xlpc=300) 24 U/L 5-34 ALT (SGPT) (BEAKER) (test micn=284) 11 U/L 6-55 COMPREHENSIVE METABOLIC [id number] 06:29:00 Test Item Value Reference Range Comments TOTAL PROTEIN (BEAKER) 5.2 gm/dL 6.0-8.3 (test ltnk=353) ALBUMIN (BEAKER) (test 3.0 g/dL 3.5-5.0 ggzu=1514) ALKALINE PHOSPHATASE 87 U/L 40-150 (BEAKER) (test uhmz=349) BILIRUBIN TOTAL (BEAKER) 1.6 mg/dL 0.2-1.2 (test zwpb=094) SODIUM (BEAKER) (test 139 meq/L 136-145 ulgc=911) POTASSIUM (BEAKER) (test 3.3 meq/L 3.5-5.1 jewu=650) CHLORIDE (BEAKER) (test 104 meq/L 98-107 xwyg=386) CO2 (BEAKER) (test 30 meq/L 22-29 ific=166) BLOOD UREA NITROGEN 18 mg/dL 7-21 (BEAKER) (test mqev=621) CREATININE (BEAKER) (test 1.41 mg/dL 0.57-1.25 llun=512) GLUCOSE RANDOM (BEAKER) 102 mg/dL 70-105 (test caoe=335) CALCIUM (BEAKER) (test 8.1 mg/dL 8.4-10.2 swbo=219) AST (SGOT) (BEAKER) (test 24 U/L 5-34 fvdi=460) ALT (SGPT) (BEAKER) (test 11 U/L 6-55 zzhu=524) EGFR (BEAKER) (test 38 mL/min/1.73 sq m ESTIMATED GFR IS NOT cwnk=0549) ACCURATE CREATININE CLEARANCE IN PREDICTING GLOMERULAR FILTRATION RATE. ESTIMATED GFR IS NOT APPLICABLE FOR DIALYSIS PATIENTS. CBC W/PLT COUNT & AUTO [id number] 05:46:00 Test Item Value Reference Range Comments WHITE BLOOD CELL COUNT (BEAKER) (test ntrs=256) 4.9 K/ L 3.5-10.5 RED BLOOD CELL COUNT (BEAKER) (test ukra=972) 2.83 M/ L 3.93-5.22 HEMOGLOBIN (BEAKER) (test vnxf=052) 8.0 GM/DL 11.2-15.7 HEMATOCRIT (BEAKER) (test rtag=256) 24.4 % 34.1-44.9 MEAN CORPUSCULAR VOLUME (BEAKER) (test igoj=585) 86.2 fL 79.4-94.8 MEAN CORPUSCULAR HEMOGLOBIN (BEAKER) (test 28.3 pg 25.6-32.2 wxvv=839) MEAN CORPUSCULAR HEMOGLOBIN CONC (BEAKER) (test 32.8 GM/DL 32.2-35.5 vtot=744) RED CELL DISTRIBUTION WIDTH (BEAKER) (test 17.6 % 11.7-14.4 uxcw=347) PLATELET COUNT (BEAKER) (test necc=922) 147 K/CU MM 150-450 MEAN PLATELET VOLUME (BEAKER) (test vbzs=349) 9.1 fL 9.4-12.3 NUCLEATED RED BLOOD CELLS (BEAKER) (test 0 /100 WBC 0-0 xfdn=456) NEUTROPHILS RELATIVE PERCENT (BEAKER) (test 51 % pgoz=217) LYMPHOCYTES RELATIVE PERCENT (BEAKER) (test 27 % yunh=476) MONOCYTES RELATIVE PERCENT (BEAKER) (test 11 % pdgg=600) EOSINOPHILS RELATIVE PERCENT (BEAKER) (test 10 % egdx=007) BASOPHILS RELATIVE PERCENT (BEAKER) (test 1 % rvhm=878) NEUTROPHILS ABSOLUTE COUNT (BEAKER) (test 2.51 K/ L 1.56-6.13 zbab=768) LYMPHOCYTES ABSOLUTE COUNT (BEAKER) (test 1.30 K/ L 1.18-3.74 bhca=419) MONOCYTES ABSOLUTE COUNT (BEAKER) (test 0.54 K/ L 0.24-0.36 bfyc=308) EOSINOPHILS ABSOLUTE COUNT (BEAKER) (test 0.48 K/ L 0.04-0.36 dbvx=086) BASOPHILS ABSOLUTE COUNT (BEAKER) (test 0.06 K/ L 0.01-0.08 zfai=755) IMMATURE GRANULOCYTES-RELATIVE PERCENT (BEAKER) 0 % 0-1 (test qxax=1730) PROTHROMBIN [id number] 05:46:00 Test Item Value Reference Range Comments PROTIME (BEAKER) (test omdg=720) 14.9 seconds 11.9-14.2 INR (BEAKER) (test rrxb=031) 1.2 <=5.9 Effective 04/01/2019: PT Reference Range ChangeNew: 11.9-14.2 Previous: 11.7- 14.7RECOMMENDED COUMADIN/WARFARIN INR THERAPY RANGESSTANDARD DOSE: 2.0-3.0 Includes: PROPHYLAXIS for venous thrombosis, systemic embolization; TREATMENT for venous thrombosis and/or pulmonary embolus.HIGH RISK: Target INR is2.5-3.5 for patients wiht mechanical heart valves.CALCIUM, [id number] 05:44:00 Test Item Value Reference Range Comments CALCIUM IONIZED (BEAKER) (test xyer=872) 0.99 mmol/L 1.12-1.27 PH, BLOOD (BEAKER) (test oymk=8799) 7.48 HEMOGLOBIN [id number] 22:07:00 Test Item Value Reference Range Comments HEMOGLOBIN A1C (BEAKER) (test rynq=035) 8.1 % 4.3-6.1 POCT-GLUCOSE [id number] 21:38:00 Test Item Value Reference Range Comments POC-GLUCOSE METER (BEAKER) 213 mg/dL 70-110 TESTED AT [address] (test ofrd=4689) [facility] [address] POCT-GLUCOSE [id number] 18:07:00 Test Item Value Reference Range Comments POC-GLUCOSE METER (BEAKER) 212 mg/dL 70-110 TESTED AT [address] (test qzzj=0888) [facility] [address] ALPHA FETOPROTEIN (AFP), TUMOR [id number] 17:50:00 Test Item Value Reference Range Comments ALPHA-FETOPROTEIN (BEAKER) (test ikeh=1302) < ng/mL <10.0 HEPATITIS C [id number] 17:49:00 Test Item Value Reference Range Comments HEPATITIS C ANTIBODY (BEAKER) (test ndne=004) Nonreactive Nonreactive VITAMIN D, [id number] 15:10:00 Test Item Value Reference Range Comments VITAMIN D 25-OH (BEAKER) (test pymi=4780) < ng/mL 6.6-49.9 Effective 08/14/2017: Reference Range ChangeNew: 6.6-49.9 ng/mL Previous: 13.0 -47.8 ng/mLRecommended Vitamin D Target Range: 30.0-40.0 ng/mLHEPATITIS B SURFACE [id number] 15:10:00 Test Item Value Reference Range Comments HEPATITIS B SURFACE ANTIBODY (BEAKER) (test < mIU/mL <8.0 qwzl=204) CARCINOEMBRYONIC ANTIGEN (CEA)2019-05-22 15:10:00 Test Item Value Reference Range Comments CARCINOEMBRYONIC ANTIGEN (BEAKER) (test izhy=991) < ng/mL 0.0-5.0 HEPATITIS B CORE ANTIBODY, [id number] 15:08:00 Test Item Value Reference Range Comments HEPATITIS B CORE IGM ANTIBODY (BEAKER) (test Nonreactive Nonreactive jdow=399) HEPATITIS A ANTIBODY, [id number] 15:08:00 Test Item Value Reference Range Comments HEPATITIS A IGM ANTIBODY (BEAKER) (test Nonreactive Nonreactive lucy=429) HEPATITIS A ANTIBODY, [id number] 15:08:00 Test Item Value Reference Range Comments HEPATITIS A IGG ANTIBODY (BEAKER) (test Nonreactive Nonreactive zvgz=7793) HEPATITIS B SURFACE [id number] 15:05:00 Test Item Value Reference Range Comments HEPATITIS B SURFACE ANTIGEN (2) (BEAKER) (test Nonreactive Nonreactive zxdh=6544) HEPATITIS B CORE ANTIBODY, [id number] 15:05:00 Test Item Value Reference Range Comments HEPATITIS B CORE TOTAL ANTIBODY (BEAKER) (test Nonreactive Nonreactive wgxk=231) HIV-1 ANTIGEN WITH HIV-1/2 [id number] 15:05:00 Test Item Value Reference Range Comments HIV-1 ANTIGEN WITH HIV 1\\T\\2 ANTIBODY (2) Nonreactive Nonreactive (BEAKER) (test oapu=1820) URIC [id number] 14:46:00 Test Item Value Reference Range Comments URIC ACID (BEAKER) (test kjki=021) 5.7 mg/dL 2.6-7.2 LIPID [id number] 14:46:00 Test Item Value Reference Range Comments TRIGLYCERIDES (BEAKER) (test sdap=901) 71 mg/dL CHOLESTEROL (BEAKER) (test hwwh=956) 72 mg/dL HDL CHOLESTEROL (BEAKER) (test knij=306) 20 mg/dL LDL CHOLESTEROL CALCULATED (BEAKER) (test fquu=807) 38 mg/dL Triglyceride Reference Range: Low Risk <150 Borderline 150- 199 High Risk 200-499 Very High Risk >=500Cholesterol Reference Range: Low Risk <200 Borderline 200-239 High Risk > 240HDL Cholesterol Reference Range: Low Risk >=60 High Risk <40LDL Cholesterol Reference Range: Optimal <100 Near Optimal 100-129 Borderline 130-159 High 160-189 Very High >=190BILIRUBIN, [id number] 14:46:00 Test Item Value Reference Range Comments BILIRUBIN DIRECT (BEAKER) (test ktbs=410) 0.8 mg/dL 0.1-0.5 GAMMA GLUTAMYL TRANSFERASE (GGT)2019-05-22 14:46:00 Test Item Value Reference Range Comments GAMMA GLUTAMYL TRANSFERASE (BEAKER) (test etza=428) 10 U/L 9-64 [id number] 14:45:00 Test Item Value Reference Range Comments ETHANOL (BEAKER) (test airh=048) < mg/dL <=10 [id number] 14:44:00 Test Item Value Reference Range Comments TRANSFERRIN (BEAKER) (test wexr=954) 109 mg/dL 174-382 IRON, TIBC, % SAT. (WITHOUT FERRITIN)2019-05-22 14:44:00 Test Item Value Reference Range Comments IRON (BEAKER) (test ycnh=568) 40.0 ug/dL 40.0-160.0 TOTAL IRON BINDING CAPACITY (BEAKER) (test 136 ug/dL 250-450 tlfq=670) IRON % SATURATION (2) (BEAKER) (test kjvi=0455) 29 % 20-55 [id number] 14:34:00 Test Item Value Reference Range Comments PARTIAL THROMBOPLASTIN TIME (DAKOTAH) (test 35.7 seconds 22.5-36.0 plja=860) [id number] 14:33:00 Test Item Value Reference Range Comments FIBRINOGEN LEVEL (DAKOTAH) (test tcko=238) 282 mg/dl 225-434 U/S, ABDOMINAL, WITH [id number] 14:09:00Reason for exam:->TIPS evaluationFINAL REPORT Ultrasound of [...] MDReport Verified Date/Time: 05/22/2019 14:09:52 Reading Location: [address] Radiology Reading Room Electronically signed by: MISSY MOMIN M.D. on 2018 02:09 PMPOCT-GLUCOSE [id number] 12:31:00 Test Item Value Reference Range Comments POC-GLUCOSE METER (BEAKER) 252 mg/dL 70-110 TESTED AT [facility] [address] [facility] (test oyuc=7986) [facility] [address] COMPREHENSIVE METABOLIC [id number] 08:22:00 Test Item Value Reference Range Comments TOTAL PROTEIN (BEAKER) 4.8 gm/dL 6.0-8.3 (test crul=490) ALBUMIN (BEAKER) (test 3.0 g/dL 3.5-5.0 eiiv=5898) ALKALINE PHOSPHATASE 77 U/L 40-150 (BEAKER) (test cwwb=403) BILIRUBIN TOTAL (BEAKER) 1.6 mg/dL 0.2-1.2 (test aije=032) SODIUM (BEAKER) (test 141 meq/L 136-145 rsnq=750) POTASSIUM (BEAKER) (test 3.1 meq/L 3.5-5.1 qply=824) CHLORIDE (BEAKER) (test 105 meq/L 98-107 aeum=109) CO2 (BEAKER) (test 31 meq/L 22-29 vtmm=726) BLOOD UREA NITROGEN 18 mg/dL 7-21 (BEAKER) (test aisq=088) CREATININE (BEAKER) (test 1.50 mg/dL 0.57-1.25 hgah=897) GLUCOSE RANDOM (BEAKER) 145 mg/dL 70-105 (test iell=143) CALCIUM (BEAKER) (test 7.9 mg/dL 8.4-10.2 ixvg=235) AST (SGOT) (BEAKER) (test 23 U/L 5-34 sdar=086) ALT (SGPT) (BEAKER) (test 7 U/L 6-55 mxrh=450) EGFR (BEAKER) (test 35 mL/min/1.73 sq m ESTIMATED GFR IS NOT qwti=2970) ACCURATE CREATININE CLEARANCE IN PREDICTING GLOMERULAR FILTRATION RATE. ESTIMATED GFR IS NOT APPLICABLE FOR DIALYSIS PATIENTS. [id number] 08:19:00 Test Item Value Reference Range Comments PHOSPHORUS (BEAKER) (test aafe=233) 2.2 mg/dL 2.3-4.7 [id number] 08:19:00 Test Item Value Reference Range Comments MAGNESIUM (BEAKER) (test socy=260) 1.5 mg/dL 1.6-2.6 HEPATIC FUNCTION [id number] 08:19:00 Test Item Value Reference Range Comments TOTAL PROTEIN (BEAKER) (test qkde=463) 4.8 gm/dL 6.0-8.3 ALBUMIN (BEAKER) (test ukko=3220) 3.0 g/dL 3.5-5.0 BILIRUBIN TOTAL (BEAKER) (test rind=523) 1.6 mg/dL 0.2-1.2 BILIRUBIN DIRECT (BEAKER) (test pfaa=024) 0.7 mg/dL 0.1-0.5 ALKALINE PHOSPHATASE (BEAKER) (test zzxi=231) 77 U/L 40-150 AST (SGOT) (BEAKER) (test ckap=213) 23 U/L 5-34 ALT (SGPT) (BEAKER) (test dcym=969) 7 U/L 6-55 POCT-GLUCOSE [id number] 08:08:00 Test Item Value Reference Range Comments POC-GLUCOSE METER (BEAKER) 154 mg/dL 70-110 TESTED AT [facility] [address] [place] [address] (test lhwb=8945) [facility] [address] B-TYPE NATRIURETIC FACTOR (BNP)2019-05-22 06:18:00 Test Item Value Reference Range Comments B-TYPE NATRIURETIC PEPTIDE (BEAKER) (test 411 pg/mL 0-100 ejia=297) PROTHROMBIN [id number] 06:00:00 Test Item Value Reference Range Comments PROTIME (BEAKER) (test lqth=919) 14.9 seconds 11.9-14.2 INR (BEAKER) (test veec=242) 1.2 <=5.9 Effective 04/01/2019: PT Reference Range ChangeNew: 11.9-14.2 Previous: 11.7- 14.7RECOMMENDED COUMADIN/WARFARIN INR THERAPY RANGESSTANDARD DOSE: 2.0-3.0 Includes: PROPHYLAXIS for venous thrombosis, systemic embolization; TREATMENT for venous thrombosis and/or pulmonary embolus.HIGH RISK: Target INR is2.5-3.5 for patients wiht mechanical heart valves.CALCIUM, [id number] 05:48:00 Test Item Value Reference Range Comments CALCIUM IONIZED (BEAKER) (test khfu=973) 1.04 mmol/L 1.12-1.27 PH, BLOOD (BEAKER) (test jmdp=6279) 7.40 CBC W/PLT COUNT & AUTO [id number] 05:45:00 Test Item Value Reference Range Comments WHITE BLOOD CELL COUNT (BEAKER) (test cyqu=128) 4.1 K/ L 3.5-10.5 RED BLOOD CELL COUNT (BEAKER) (test ymgm=944) 2.71 M/ L 3.93-5.22 HEMOGLOBIN (BEAKER) (test saje=715) 7.4 GM/DL 11.2-15.7 HEMATOCRIT (BEAKER) (test twyb=686) 23.6 % 34.1-44.9 MEAN CORPUSCULAR VOLUME (BEAKER) (test swie=375) 87.1 fL 79.4-94.8 MEAN CORPUSCULAR HEMOGLOBIN (BEAKER) (test 27.3 pg 25.6-32.2 gmxy=785) MEAN CORPUSCULAR HEMOGLOBIN CONC (BEAKER) (test 31.4 GM/DL 32.2-35.5 icsn=047) RED CELL DISTRIBUTION WIDTH (BEAKER) (test 17.2 % 11.7-14.4 qlzl=105) PLATELET COUNT (BEAKER) (test okna=985) 126 K/CU MM 150-450 MEAN PLATELET VOLUME (BEAKER) (test opkj=758) 9.2 fL 9.4-12.3 NUCLEATED RED BLOOD CELLS (BEAKER) (test 0 /100 WBC 0-0 kpqw=545) NEUTROPHILS RELATIVE PERCENT (BEAKER) (test 49 % yuhq=911) LYMPHOCYTES RELATIVE PERCENT (BEAKER) (test 29 % odev=670) MONOCYTES RELATIVE PERCENT (BEAKER) (test 12 % fwjx=477) EOSINOPHILS RELATIVE PERCENT (BEAKER) (test 8 % pdne=962) BASOPHILS RELATIVE PERCENT (BEAKER) (test 1 % fslg=806) NEUTROPHILS ABSOLUTE COUNT (BEAKER) (test 2.03 K/ L 1.56-6.13 ecpl=530) LYMPHOCYTES ABSOLUTE COUNT (BEAKER) (test 1.21 K/ L 1.18-3.74 tolf=090) MONOCYTES ABSOLUTE COUNT (BEAKER) (test 0.51 K/ L 0.24-0.36 tazu=538) EOSINOPHILS ABSOLUTE COUNT (BEAKER) (test 0.34 K/ L 0.04-0.36 buqq=057) BASOPHILS ABSOLUTE COUNT (BEAKER) (test 0.04 K/ L 0.01-0.08 hhay=713) IMMATURE GRANULOCYTES-RELATIVE PERCENT (BEAKER) 0 % 0-1 (test wzda=6947) POCT-GLUCOSE [id number] 21:52:00 Test Item Value Reference Range Comments POC-GLUCOSE METER (BEAKER) 241 mg/dL 70-110 TESTED AT [address] (test xljs=8324) [place] [address] POCT-GLUCOSE [id number] 17:36:00 Test Item Value Reference Range Comments POC-GLUCOSE METER (BEAKER) 291 mg/dL 70-110 TESTED AT [address] (test eaqc=2080) [place] [id number] BODY FLUID CELL COUNT WITH [id number] 13:52:00 Test Item Value Reference Range Comments APPEARANCE FLUID (BEAKER) (test zkfh=486) Clear Clear COLOR FLUID (BEAKER) (test ywmd=335) Yellow Colorless, Straw RBC FLUID (BEAKER) (test qnve=621) 1815 /cu mm <=1 ADJUSTED WBC FLUID (BEAKER) (test evfd=2712) 79 /cu mm <=5 LINING CELLS (BEAKER) (test jmno=6609) 14 /cu mm <=1 NEUTROPHILS FLUID (BEAKER) (test xuyk=6175) 0 % LYMPHS FLUID (BEAKER) (test wgnf=602) 25 % MONO/MACROPHAGE FLUID (BEAKER) (test dqpy=645) 74 % EOSINOPHILS FLUID (BEAKER) (test qglu=065) 1 % BASO FLUID (BEAKER) (test jgpg=139) 0 % CONTAINER BODY FLUID (BEAKER) (test slry=9664) EDTA Tube HEMOGLOBIN [id number] 13:47:00 Test Item Value Reference Range Comments HEMOGLOBIN A1C (BEAKER) (test ricj=184) 8.4 % 4.3-6.1 POCT-GLUCOSE [id number] 11:56:00 Test Item Value Reference Range Comments POC-GLUCOSE METER (BEAKER) 223 mg/dL 70-110 TESTED AT [facility] [address] [facility] (test gook=5740) [facility] [address] POCT-GLUCOSE [id number] 08:31:00 Test Item Value Reference Range Comments POC-GLUCOSE METER (BEAKER) 257 mg/dL 70-110 TESTED AT [facility] [address] [facility] (test hucy=8621) [facility] [address] T4, [id number] 08:29:00 Test Item Value Reference Range Comments FREE T4 (BEAKER) (test vbnn=537) 0.41 ng/dL 0.70-1.48 BASIC METABOLIC [id number] 08:28:00 Test Item Value Reference Range Comments SODIUM (BEAKER) (test 136 meq/L 136-145 stde=033) POTASSIUM (BEAKER) (test 3.4 meq/L 3.5-5.1 prku=283) CHLORIDE (BEAKER) (test 104 meq/L 98-107 rpzy=830) CO2 (BEAKER) (test 27 meq/L 22-29 xlmj=773) BLOOD UREA NITROGEN 18 mg/dL 7-21 (BEAKER) (test lalp=375) CREATININE (BEAKER) (test 1.57 mg/dL 0.57-1.25 bsqb=838) GLUCOSE RANDOM (BEAKER) 235 mg/dL 70-105 (test kesq=548) CALCIUM (BEAKER) (test 7.8 mg/dL 8.4-10.2 rkty=464) EGFR (BEAKER) (test 33 mL/min/1.73 sq m ESTIMATED GFR IS NOT vnxk=4777) ACCURATE CREATININE CLEARANCE IN PREDICTING GLOMERULAR FILTRATION RATE. ESTIMATED GFR IS NOT APPLICABLE FOR DIALYSIS PATIENTS. Specimen slightly [id number] 08:14:00 Test Item Value Reference Range Comments PHOSPHORUS (BEAKER) (test fkwd=133) 2.4 mg/dL 2.3-4.7 [id number] 08:14:00 Test Item Value Reference Range Comments MAGNESIUM (BEAKER) (test fglg=607) 1.5 mg/dL 1.6-2.6 HEPATIC FUNCTION [id number] 08:14:00 Test Item Value Reference Range Comments TOTAL PROTEIN (BEAKER) (test rnaa=740) 5.1 gm/dL 6.0-8.3 ALBUMIN (BEAKER) (test ajll=7505) 2.5 g/dL 3.5-5.0 BILIRUBIN TOTAL (BEAKER) (test dcag=412) 1.3 mg/dL 0.2-1.2 BILIRUBIN DIRECT (BEAKER) (test gnvc=959) 0.7 mg/dL 0.1-0.5 ALKALINE PHOSPHATASE (BEAKER) (test ehwl=274) 107 U/L 40-150 AST (SGOT) (BEAKER) (test jceh=624) 27 U/L 5-34 ALT (SGPT) (BEAKER) (test tbcw=404) 11 U/L 6-55 Specimen slightly ictericTSH/FREE T4 IF [id number] 07:00:00 Test Item Value Reference Range Comments THYROID STIMULATING HORMONE (BEAKER) (test 59.61 uIU/mL 0.35-4.94 calf=433) PROTHROMBIN [id number] 05:56:00 Test Item Value Reference Range Comments PROTIME (BEAKER) (test kxyp=298) 14.3 seconds 11.9-14.2 INR (BEAKER) (test mpdd=310) 1.2 <=5.9 Effective 04/01/2019: PT Reference Range ChangeNew: 11.9-14.2 Previous: 11.7- 14.7RECOMMENDED COUMADIN/WARFARIN INR THERAPY RANGESSTANDARD DOSE: 2.0-3.0 Includes: PROPHYLAXIS for venous thrombosis, systemic embolization; TREATMENT for venous thrombosis and/or pulmonary embolus.HIGH RISK: Target INR is2.5-3.5 for patients wiht mechanical heart valves.CALCIUM, [id number] 05:43:00 Test Item Value Reference Range Comments CALCIUM IONIZED (BEAKER) (test nxfl=042) 0.97 mmol/L 1.12-1.27 PH, BLOOD (BEAKER) (test dlma=9872) 7.45 CBC W/PLT COUNT & AUTO [id number] 05:21:00 Test Item Value Reference Range Comments WHITE BLOOD CELL COUNT (BEAKER) (test hviv=862) 5.5 K/ L 3.5-10.5 RED BLOOD CELL COUNT (BEAKER) (test kvaq=621) 3.06 M/ L 3.93-5.22 HEMOGLOBIN (BEAKER) (test gerg=890) 8.3 GM/DL 11.2-15.7 HEMATOCRIT (BEAKER) (test mifi=288) 26.3 % 34.1-44.9 MEAN CORPUSCULAR VOLUME (BEAKER) (test vkjj=065) 85.9 fL 79.4-94.8 MEAN CORPUSCULAR HEMOGLOBIN (BEAKER) (test 27.1 pg 25.6-32.2 fijs=425) MEAN CORPUSCULAR HEMOGLOBIN CONC (BEAKER) (test 31.6 GM/DL 32.2-35.5 jgvs=398) RED CELL DISTRIBUTION WIDTH (BEAKER) (test 17.2 % 11.7-14.4 rpbm=111) PLATELET COUNT (BEAKER) (test mvit=944) 154 K/CU MM 150-450 MEAN PLATELET VOLUME (BEAKER) (test oief=504) 8.9 fL 9.4-12.3 NUCLEATED RED BLOOD CELLS (BEAKER) (test 0 /100 WBC 0-0 moaf=501) NEUTROPHILS RELATIVE PERCENT (BEAKER) (test 61 % vupk=294) LYMPHOCYTES RELATIVE PERCENT (BEAKER) (test 21 % yudk=376) MONOCYTES RELATIVE PERCENT (BEAKER) (test 10 % tgnq=276) EOSINOPHILS RELATIVE PERCENT (BEAKER) (test 8 % yohu=554) BASOPHILS RELATIVE PERCENT (BEAKER) (test 1 % qfkt=530) NEUTROPHILS ABSOLUTE COUNT (BEAKER) (test 3.33 K/ L 1.56-6.13 hbyj=645) LYMPHOCYTES ABSOLUTE COUNT (BEAKER) (test 1.13 K/ L 1.18-3.74 fylt=249) MONOCYTES ABSOLUTE COUNT (BEAKER) (test 0.55 K/ L 0.24-0.36 bhzx=112) EOSINOPHILS ABSOLUTE COUNT (BEAKER) (test 0.42 K/ L 0.04-0.36 zluh=114) BASOPHILS ABSOLUTE COUNT (BEAKER) (test 0.06 K/ L 0.01-0.08 tquo=706) IMMATURE GRANULOCYTES-RELATIVE PERCENT (BEAKER) 0 % 0-1 (test kkbi=7124) POCT-GLUCOSE [id number] 21:18:00 Test Item Value Reference Range Comments POC-GLUCOSE METER (BEAKER) 258 mg/dL 70-110 TESTED AT [address] (test ftmm=9665) [facility] [address] POCT-GLUCOSE [id number] 17:42:00 Test Item Value Reference Range Comments POC-GLUCOSE METER (BEAKER) 232 mg/dL 70-110 TESTED AT [address] (test kyux=7196) [facility] [address] POCT-GLUCOSE [id number] 12:51:00 Test Item Value Reference Range Comments POC-GLUCOSE METER (BEAKER) 206 mg/dL 70-110 TESTED AT [address] (test pvvt=7278) [facility] [address] POCT-GLUCOSE [id number] 07:53:00 Test Item Value Reference Range Comments POC-GLUCOSE METER (BEAKER) 219 mg/dL 70-110 TESTED AT [address] (test veie=5111) [facility] [address] COMPREHENSIVE METABOLIC [id number] 06:52:00 Test Item Value Reference Range Comments TOTAL PROTEIN (BEAKER) 4.9 gm/dL 6.0-8.3 (test bdhx=187) ALBUMIN (BEAKER) (test 2.3 g/dL 3.5-5.0 xbjn=3484) ALKALINE PHOSPHATASE 119 U/L 40-150 (BEAKER) (test smmz=847) BILIRUBIN TOTAL (BEAKER) 1.1 mg/dL 0.2-1.2 (test qhyo=221) SODIUM (BEAKER) (test 135 meq/L 136-145 tggd=329) POTASSIUM (BEAKER) (test 4.0 meq/L 3.5-5.1 twdg=992) CHLORIDE (BEAKER) (test 105 meq/L 98-107 vgnd=339) CO2 (BEAKER) (test 26 meq/L 22-29 lrru=875) BLOOD UREA NITROGEN 18 mg/dL 7-21 (BEAKER) (test bmxb=323) CREATININE (BEAKER) (test 1.38 mg/dL 0.57-1.25 vzoj=706) GLUCOSE RANDOM (BEAKER) 234 mg/dL 70-105 (test ohbc=170) CALCIUM (BEAKER) (test 7.8 mg/dL 8.4-10.2 alsj=213) AST (SGOT) (BEAKER) (test 29 U/L 5-34 mtdh=359) ALT (SGPT) (BEAKER) (test 13 U/L 6-55 bmvm=114) EGFR (BEAKER) (test 39 mL/min/1.73 sq m ESTIMATED GFR IS NOT ilae=0284) ACCURATE CREATININE CLEARANCE IN PREDICTING GLOMERULAR FILTRATION RATE. ESTIMATED GFR IS NOT APPLICABLE FOR DIALYSIS PATIENTS. [id number] 06:47:00 Test Item Value Reference Range Comments PHOSPHORUS (BEAKER) (test zwie=777) 2.0 mg/dL 2.3-4.7 [id number] 06:47:00 Test Item Value Reference Range Comments MAGNESIUM (BEAKER) (test bngd=437) 1.7 mg/dL 1.6-2.6 HEPATIC FUNCTION [id number] 06:47:00 Test Item Value Reference Range Comments TOTAL PROTEIN (BEAKER) (test okoh=347) 4.9 gm/dL 6.0-8.3 ALBUMIN (BEAKER) (test xcfn=1079) 2.3 g/dL 3.5-5.0 BILIRUBIN TOTAL (BEAKER) (test ybrn=906) 1.1 mg/dL 0.2-1.2 BILIRUBIN DIRECT (BEAKER) (test jyhs=608) 0.6 mg/dL 0.1-0.5 ALKALINE PHOSPHATASE (BEAKER) (test wvbq=221) 119 U/L 40-150 AST (SGOT) (BEAKER) (test wpxt=178) 29 U/L 5-34 ALT (SGPT) (BEAKER) (test xwil=763) 13 U/L 6-55 CBC W/PLT COUNT & AUTO [id number] 06:32:00 Test Item Value Reference Range Comments WHITE BLOOD CELL COUNT (BEAKER) (test ykug=410) 5.3 K/ L 3.5-10.5 RED BLOOD CELL COUNT (BEAKER) (test jxdc=383) 3.05 M/ L 3.93-5.22 HEMOGLOBIN (BEAKER) (test vlra=584) 8.3 GM/DL 11.2-15.7 HEMATOCRIT (BEAKER) (test clzm=569) 26.7 % 34.1-44.9 MEAN CORPUSCULAR VOLUME (BEAKER) (test mvmy=161) 87.5 fL 79.4-94.8 MEAN CORPUSCULAR HEMOGLOBIN (BEAKER) (test 27.2 pg 25.6-32.2 kwnh=913) MEAN CORPUSCULAR HEMOGLOBIN CONC (BEAKER) (test 31.1 GM/DL 32.2-35.5 gciy=034) RED CELL DISTRIBUTION WIDTH (BEAKER) (test 17.4 % 11.7-14.4 nkhj=258) PLATELET COUNT (BEAKER) (test fiqu=532) 161 K/CU MM 150-450 MEAN PLATELET VOLUME (BEAKER) (test zmcz=236) 8.8 fL 9.4-12.3 NUCLEATED RED BLOOD CELLS (BEAKER) (test 0 /100 WBC 0-0 huuk=585) NEUTROPHILS RELATIVE PERCENT (BEAKER) (test 52 % lmqi=040) LYMPHOCYTES RELATIVE PERCENT (BEAKER) (test 27 % wvjb=122) MONOCYTES RELATIVE PERCENT (BEAKER) (test 9 % lasq=771) EOSINOPHILS RELATIVE PERCENT (BEAKER) (test 10 % hved=350) BASOPHILS RELATIVE PERCENT (BEAKER) (test 2 % yygw=474) NEUTROPHILS ABSOLUTE COUNT (BEAKER) (test 2.75 K/ L 1.56-6.13 agoo=323) LYMPHOCYTES ABSOLUTE COUNT (BEAKER) (test 1.42 K/ L 1.18-3.74 sxbv=520) MONOCYTES ABSOLUTE COUNT (BEAKER) (test 0.48 K/ L 0.24-0.36 cauk=257) EOSINOPHILS ABSOLUTE COUNT (BEAKER) (test 0.54 K/ L 0.04-0.36 uiuz=630) BASOPHILS ABSOLUTE COUNT (BEAKER) (test 0.08 K/ L 0.01-0.08 siuj=061) IMMATURE GRANULOCYTES-RELATIVE PERCENT (BEAKER) 0 % 0-1 (test dhji=8670) B-TYPE NATRIURETIC FACTOR (BNP)2019-05-20 06:27:00 Test Item Value Reference Range Comments B-TYPE NATRIURETIC PEPTIDE (BEAKER) (test 274 pg/mL 0-100 tqqr=259) VANCOMYCIN LEVEL, [id number] 06:16:00 Test Item Value Reference Range Comments VANCOMYCIN TROUGH (BEAKER) (test zqsx=067) 5.8 ug/mL 10.0-20.0 [id number] 06:11:00 Test Item Value Reference Range Comments D-DIMER QUANTITATIVE (BEAKER) (test scbk=006) 3.95 MG/L FEU <0.50 Intended Use: The [...] exclusion of thrombosis is within 95-100% range.CALCIUM, [id number] 06:04:00 Test Item Value Reference Range Comments CALCIUM IONIZED (BEAKER) (test hepk=118) 1.06 mmol/L 1.12-1.27 PH, BLOOD (BEAKER) (test buie=9371) 7.43 PROTHROMBIN [id number] 06:02:00 Test Item Value Reference Range Comments PROTIME (BEAKER) (test optk=444) 13.8 seconds 11.9-14.2 INR (BEAKER) (test wnqh=682) 1.1 <=5.9 Effective 04/01/2019: PT Reference Range ChangeNew: 11.9-14.2 Previous: 11.7- 14.7RECOMMENDED COUMADIN/WARFARIN INR THERAPY RANGESSTANDARD DOSE: 2.0-3.0 Includes: PROPHYLAXIS for venous thrombosis, systemic embolization; TREATMENT for venous thrombosis and/or pulmonary embolus.HIGH RISK: Target INR is2.5-3.5 for patients wiht mechanical heart valves.TROPONIN [id number] 02:44:00 Test Item Value Reference Range Comments TROPONIN I (BEAKER) (test gcnv=042) 0.01 ng/mL 0.00-0.03 Troponin I (TnI) levels [...] acute neurological disease, and persistent tachyarrhythmia.PROTEIN, RANDOM [id number] 01:50:00 Test Item Value Reference Range Comments PROTEIN, URINE (BEAKER) (test qlks=6212) 20 mg/dL 0-14 CREATININE, RANDOM [id number] 01:49:00 Test Item Value Reference Range Comments CREATININE URINE (BEAKER) (test eeup=080) 184.6 mg/dL Reference Range: No NormalsRAD, CHEST, 1 VIEW, NON [id number] 01:49: 00Reason for exam:->anasarcaShould this be performed [...] Verified Date/Time: 05/20/2019 01:49 :05 Reading Location: [address] Reading Room POCT-GLUCOSE [id number] 00:36:00 Test Item Value Reference Range Comments POC-GLUCOSE METER (BEAKER) 326 mg/dL 70-110 TESTED AT [facility] [address] [place] [address] (test blbu=6464) [facility] [address] URINALYSIS W/ [id number] 00:02:00 Test Item Value Reference Range Comments COLOR (BEAKER) (test zmgl=316) Yellow CLARITY (BEAKER) (test qpqq=803) Clear SPECIFIC GRAVITY UA (BEAKER) (test onhk=860) 1.020 1.001-1.035 PH UA (BEAKER) (test xsao=401) 5.5 5.0-8.0 PROTEIN UA (BEAKER) (test pxtm=784) 20 mg/dL Negative GLUCOSE UA (BEAKER) (test cfak=111) 300 mg/dL Negative KETONES UA (BEAKER) (test fwzb=489) Negative Negative BILIRUBIN UA (BEAKER) (test cwaa=853) Negative Negative BLOOD UA (BEAKER) (test fnho=432) Negative Negative NITRITE UA (BEAKER) (test mixn=533) Negative Negative LEUKOCYTE ESTERASE UA (BEAKER) (test fsuk=106) Small Negative UROBILINOGEN UA (BEAKER) (test gnkj=814) 2.0 mg/dL 0.2-1.0 RBC UA (BEAKER) (test mgwr=916) 2 /HPF WBC UA (BEAKER) (test vqcv=458) 2 /HPF MUCUS (BEAKER) (test zksq=8319) Rare SQUAMOUS EPITHELIAL (BEAKER) (test tkal=536) 6 /HPF HYALINE CASTS (BEAKER) (test umea=333) 5 /LPF SOURCE(BEAKER) (test nfcj=8374) Urine, Voided T4, [id number] 22:29:00 Test Item Value Reference Range Comments FREE T4 (BEAKER) (test slgb=027) 0.44 ng/dL 0.70-1.48 HEMOGLOBIN [id number] 22:15:00 Test Item Value Reference Range Comments HEMOGLOBIN A1C (BEAKER) (test ebqo=123) 8.6 % 4.3-6.1 TSH/FREE T4 IF [id number] 21:43:00 Test Item Value Reference Range Comments THYROID STIMULATING HORMONE (BEAKER) (test 72.01 uIU/mL 0.35-4.94 njki=508) B-TYPE NATRIURETIC FACTOR (BNP)2019-05-19 21:29:00 Test Item Value Reference Range Comments B-TYPE NATRIURETIC PEPTIDE (BEAKER) (test 222 pg/mL 0-100 ktmj=740) PROTHROMBIN [id number] 21:26:00 Test Item Value Reference Range Comments PROTIME (BEAKER) (test kibf=736) 13.6 seconds 11.9-14.2 INR (BEAKER) (test plxr=643) 1.1 <=5.9 Effective 04/01/2019: PT Reference Range ChangeNew: 11.9-14.2 Previous: 11.7- 14.7RECOMMENDED COUMADIN/WARFARIN INR THERAPY RANGESSTANDARD DOSE: 2.0-3.0 Includes: PROPHYLAXIS for venous thrombosis, systemic embolization; TREATMENT for venous thrombosis and/or pulmonary embolus.HIGH RISK: Target INR is2.5-3.5 for patients wiht mechanical heart valves.TROPONIN [id number] 21:26:00 Test Item Value Reference Range Comments TROPONIN I (BEAKER) (test naku=895) < ng/mL 0.00-0.03 Troponin I (TnI) levels [...] failure, acidosis, acute neurological disease, and persistent tachyarrhythmia.[id number] 21:18:00 Test Item Value Reference Range Comments MAGNESIUM (BEAKER) (test 1.8 mg/dL 1.6-2.6 Specimen markedly hemolyzed ahgk=162) [id number] 21:18:00 Test Item Value Reference Range Comments PHOSPHORUS (BEAKER) (test 2.1 mg/dL 2.3-4.7 Specimen markedly hemolyzed eqic=521) BASIC METABOLIC [id number] 21:18:00 Test Item Value Reference Range Comments SODIUM (BEAKER) (test 136 meq/L 136-145 pret=122) POTASSIUM (BEAKER) (test 4.8 meq/L 3.5-5.1 Specimen markedly wjjh=686) hemolyzed CHLORIDE (BEAKER) (test 103 meq/L 98-107 llxw=927) CO2 (BEAKER) (test 29 meq/L 22-29 uceu=204) BLOOD UREA NITROGEN 17 mg/dL 7-21 (BEAKER) (test ndts=815) CREATININE (BEAKER) (test 1.33 mg/dL 0.57-1.25 Specimen markedly yjps=001) hemolyzed GLUCOSE RANDOM (BEAKER) 248 mg/dL 70-105 (test smke=971) CALCIUM (BEAKER) (test 8.1 mg/dL 8.4-10.2 kqom=161) EGFR (BEAKER) (test 41 mL/min/1.73 sq m ESTIMATED GFR IS NOT cydf=7347) ACCURATE CREATININE CLEARANCE IN PREDICTING GLOMERULAR FILTRATION RATE. ESTIMATED GFR IS NOT APPLICABLE FOR DIALYSIS PATIENTS. HEPATIC FUNCTION [id number] 21:18:00 Test Item Value Reference Range Comments TOTAL PROTEIN (BEAKER) (test 6.4 gm/dL 6.0-8.3 Specimen markedly hemolyzed urgo=482) ALBUMIN (BEAKER) (test 2.5 g/dL 3.5-5.0 Specimen markedly hemolyzed aeld=7633) BILIRUBIN TOTAL (BEAKER) (test 1.3 mg/dL 0.2-1.2 Specimen markedly hemolyzed yeth=577) BILIRUBIN DIRECT (BEAKER) (test 0.3 mg/dL 0.1-0.5 Specimen markedly hemolyzed ldde=435) ALKALINE PHOSPHATASE (BEAKER) 143 U/L 40-150 (test cpow=469) AST (SGOT) (BEAKER) (test 61 U/L 5-34 Specimen markedly hemolyzed cgfy=285) ALT (SGPT) (BEAKER) (test 15 U/L 6-55 Specimen markedly hemolyzed kyqh=558) CBC W/PLT COUNT & AUTO [id number] 20:58:00 Test Item Value Reference Range Comments WHITE BLOOD CELL COUNT (BEAKER) (test cgrv=039) 6.0 K/ L 3.5-10.5 RED BLOOD CELL COUNT (BEAKER) (test zott=048) 3.57 M/ L 3.93-5.22 HEMOGLOBIN (BEAKER) (test spbi=148) 9.8 GM/DL 11.2-15.7 HEMATOCRIT (BEAKER) (test hyqx=031) 30.6 % 34.1-44.9 MEAN CORPUSCULAR VOLUME (BEAKER) (test vcke=731) 85.7 fL 79.4-94.8 MEAN CORPUSCULAR HEMOGLOBIN (BEAKER) (test 27.5 pg 25.6-32.2 lzut=284) MEAN CORPUSCULAR HEMOGLOBIN CONC (BEAKER) (test 32.0 GM/DL 32.2-35.5 pomn=535) RED CELL DISTRIBUTION WIDTH (BEAKER) (test 17.4 % 11.7-14.4 vgif=954) PLATELET COUNT (BEAKER) (test nite=058) 199 K/CU MM 150-450 MEAN PLATELET VOLUME (BEAKER) (test scuj=017) 9.1 fL 9.4-12.3 NUCLEATED RED BLOOD CELLS (BEAKER) (test 0 /100 WBC 0-0 pzrr=103) NEUTROPHILS RELATIVE PERCENT (BEAKER) (test 53 % kqoi=744) LYMPHOCYTES RELATIVE PERCENT (BEAKER) (test 27 % qbqt=431) MONOCYTES RELATIVE PERCENT (BEAKER) (test 8 % ovhv=265) EOSINOPHILS RELATIVE PERCENT (BEAKER) (test 10 % hdvn=135) BASOPHILS RELATIVE PERCENT (BEAKER) (test 1 % ptrv=954) NEUTROPHILS ABSOLUTE COUNT (BEAKER) (test 3.21 K/ L 1.56-6.13 lnnf=010) LYMPHOCYTES ABSOLUTE COUNT (BEAKER) (test 1.62 K/ L 1.18-3.74 cgau=314) MONOCYTES ABSOLUTE COUNT (BEAKER) (test 0.50 K/ L 0.24-0.36 hqqx=002) EOSINOPHILS ABSOLUTE COUNT (BEAKER) (test 0.62 K/ L 0.04-0.36 nite=855) BASOPHILS ABSOLUTE COUNT (BEAKER) (test 0.08 K/ L 0.01-0.08 tyjq=029) IMMATURE GRANULOCYTES-RELATIVE PERCENT (BEAKER) 0 % 0-1 (test mnjq=0625) BODY FLUID CULTURE + GRAM [id number] 13:44:00 Test Item Value Reference Range Comments CULTURE (BEAKER) (test pnwl=1407) No growth GRAM STAIN RESULT (BEAKER) (test <1+ White blood cells seen otqw=6844) GRAM STAIN RESULT (BEAKER) (test No organisms seen vfhf=31575) BODY FLUID CULTURE + GRAM [id number] 14:06:00 Test Item Value Reference Range Comments CULTURE (BEAKER) (test ftry=2045) No growth GRAM STAIN RESULT (BEAKER) (test No White blood cells seen bqzs=3590) GRAM STAIN RESULT (BEAKER) (test No organisms seen hkvr=98377) BASIC METABOLIC [id number] 08:41:00 Test Item Value Reference Range Comments SODIUM (BEAKER) (test 132 meq/L 136-145 cich=544) POTASSIUM (BEAKER) (test 4.4 meq/L 3.5-5.1 qdsa=915) CHLORIDE (BEAKER) (test 100 meq/L 98-107 vfwq=272) CO2 (BEAKER) (test 25 meq/L 22-29 nrla=632) BLOOD UREA NITROGEN 53 mg/dL 7-21 (BEAKER) (test wvls=881) CREATININE (BEAKER) (test 1.80 mg/dL 0.57-1.25 bmwe=391) GLUCOSE RANDOM (BEAKER) 211 mg/dL 70-105 (test xctd=804) CALCIUM (BEAKER) (test 9.0 mg/dL 8.4-10.2 kqvl=707) EGFR (BEAKER) (test 29 mL/min/1.73 sq m ESTIMATED GFR IS NOT junn=0573) ACCURATE CREATININE CLEARANCE IN PREDICTING GLOMERULAR FILTRATION RATE. ESTIMATED GFR IS NOT APPLICABLE FOR DIALYSIS PATIENTS. POCT-GLUCOSE [id number] 08:16:00 Test Item Value Reference Range Comments POC-GLUCOSE METER (BEAKER) 213 mg/dL 70-110 TESTED AT [facility] [address] [place] [address] (test vybw=8740) [facility] [address] HEPATIC FUNCTION [id number] 06:43:00 Test Item Value Reference Range Comments TOTAL PROTEIN (BEAKER) (test qpso=677) 5.7 gm/dL 6.0-8.3 ALBUMIN (BEAKER) (test jabk=4195) 4.2 g/dL 3.5-5.0 BILIRUBIN TOTAL (BEAKER) (test xrhd=665) 1.6 mg/dL 0.2-1.2 BILIRUBIN DIRECT (BEAKER) (test iuqw=042) 0.8 mg/dL 0.1-0.5 ALKALINE PHOSPHATASE (BEAKER) (test dksn=848) 95 U/L 40-150 AST (SGOT) (BEAKER) (test trpp=322) 71 U/L 5-34 ALT (SGPT) (BEAKER) (test xmwb=583) 68 U/L 6-55 POCT-GLUCOSE [id number] 22:00:00 Test Item Value Reference Range Comments POC-GLUCOSE METER (BEAKER) 341 mg/dL 70-110 Notified ALEXI ENNIS/TESTED AT [facility] (test daue=8601) [address] [place] [id number] BODY FLUID CELL COUNT WITH [id number] 20:00:00 Test Item Value Reference Range Comments APPEARANCE FLUID (BEAKER) (test sghx=307) Hazy Clear COLOR FLUID (BEAKER) (test xfkh=107) Straw Colorless, Straw RBC FLUID (BEAKER) (test efcz=016) 4000 /cu mm <=1 ADJUSTED WBC FLUID (BEAKER) (test orlm=8867) 140 /cu mm <=5 LINING CELLS (BEAKER) (test hmkl=3740) 1 /cu mm <=1 NEUTROPHILS FLUID (BEAKER) (test vlsf=8731) 1 % LYMPHS FLUID (BEAKER) (test hzgy=907) 30 % MONO/MACROPHAGE FLUID (BEAKER) (test nztb=700) 69 % EOSINOPHILS FLUID (BEAKER) (test phns=041) 0 % BASO FLUID (BEAKER) (test rskl=109) 0 % CONTAINER BODY FLUID (BEAKER) (test erno=0786) EDTA Tube U/S, [id number] 16:42:00Reason for exam:->ascites limited 6 litersFINAL REPORT PROCEDURE: Ultrasound-guided paracentesis. INDICATION: 59-year-old woman with ascites. DESCRIPTION: After obtaining informed written consent, ultrasound scan of the abdomen identified ascites in the right lower quadrant. The overlying skin was prepped and draped in the usual, sterile fashion and local 2% lidocaine anesthesia was administered. A 5 [place] catheter was advanced into the peritoneal cavity and 6000 cc of serous fluid was removed. The catheter was removed without immediate complication. Samples were sent for analysis. IMPRESSION:Uncomplicated ultrasound-guided paracentesis with 6000 cc fluid removed. Signed: Antwon Bose MDReport Verified Date/Time: 02/24/2019 16:42:07 Reading Location: [address] Ultrasound Reading Room POCT-GLUCOSE [id number] 13:07:00 Test Item Value Reference Range Comments POC-GLUCOSE METER (BEAKER) 290 mg/dL 70-110 TESTED AT [address] (test bagj=5436) [facility] [address] PROTHROMBIN [id number] 12:01:00 Test Item Value Reference Range Comments PROTIME (BEAKER) (test awlj=204) 14.3 seconds 11.7-14.7 INR (BEAKER) (test gcvf=938) 1.1 <=5.9 RECOMMENDED COUMADIN/WARFARIN INR THERAPY RANGESSTANDARD DOSE: 2.0 - 3.0 Includes: PROPHYLAXIS forvenous thrombosis, systemic embolization; TREATMENT for venous thrombosis and/or pulmonary embolus.HIGH RISK: Target INR is 2.5-3.5 for patients with mechanical heart valves.[id number] 12:01:00 Test Item Value Reference Range Comments PARTIAL THROMBOPLASTIN TIME (BEAKER) (test 32.5 seconds 22.5-36.0 rmgr=060) POCT-GLUCOSE [id number] 08:39:00 Test Item Value Reference Range Comments POC-GLUCOSE METER (BEAKER) 279 mg/dL 70-110 TESTED AT [facility] [address] [facility] (test ohxn=9531) [place] [address] CALCIUM, [id number] 07:04:00 Test Item Value Reference Range Comments CALCIUM IONIZED (BEAKER) (test pmmx=326) 1.08 mmol/L 1.12-1.27 PH, BLOOD (BEAKER) (test gpwb=3723) 7.38 COMPREHENSIVE METABOLIC [id number] 05:59:00 Test Item Value Reference Range Comments TOTAL PROTEIN (BEAKER) 5.5 gm/dL 6.0-8.3 (test mizm=198) ALBUMIN (BEAKER) (test 3.8 g/dL 3.5-5.0 njwi=4544) ALKALINE PHOSPHATASE 125 U/L 40-150 (BEAKER) (test jgpz=804) BILIRUBIN TOTAL (BEAKER) 0.9 mg/dL 0.2-1.2 (test cdwx=536) SODIUM (BEAKER) (test 130 meq/L 136-145 kbke=776) POTASSIUM (BEAKER) (test 4.0 meq/L 3.5-5.1 yekm=909) CHLORIDE (BEAKER) (test 99 meq/L 98-107 hqnn=192) CO2 (BEAKER) (test 23 meq/L 22-29 cszl=058) BLOOD UREA NITROGEN 51 mg/dL 7-21 (BEAKER) (test zjme=459) CREATININE (BEAKER) (test 2.07 mg/dL 0.57-1.25 oida=647) GLUCOSE RANDOM (BEAKER) 320 mg/dL 70-105 (test oltn=641) CALCIUM (BEAKER) (test 8.7 mg/dL 8.4-10.2 wntr=867) AST (SGOT) (BEAKER) (test 111 U/L 5-34 zxhg=717) ALT (SGPT) (BEAKER) (test 98 U/L 6-55 llsg=890) EGFR (BEAKER) (test 24 mL/min/1.73 sq m ESTIMATED GFR IS NOT ebac=5507) ACCURATE CREATININE CLEARANCE IN PREDICTING GLOMERULAR FILTRATION RATE. ESTIMATED GFR IS NOT APPLICABLE FOR DIALYSIS PATIENTS. [id number] 05:58:00 Test Item Value Reference Range Comments PHOSPHORUS (BEAKER) (test rrbu=173) 2.1 mg/dL 2.3-4.7 [id number] 05:58:00 Test Item Value Reference Range Comments MAGNESIUM (BEAKER) (test eqhw=531) 2.3 mg/dL 1.6-2.6 HEPATIC FUNCTION [id number] 05:58:00 Test Item Value Reference Range Comments TOTAL PROTEIN (BEAKER) (test rpnl=334) 5.5 gm/dL 6.0-8.3 ALBUMIN (BEAKER) (test mixn=8537) 3.8 g/dL 3.5-5.0 BILIRUBIN TOTAL (BEAKER) (test mweg=399) 0.9 mg/dL 0.2-1.2 BILIRUBIN DIRECT (BEAKER) (test mumq=697) 0.4 mg/dL 0.1-0.5 ALKALINE PHOSPHATASE (BEAKER) (test dvpx=989) 125 U/L 40-150 AST (SGOT) (BEAKER) (test jlix=430) 111 U/L 5-34 ALT (SGPT) (BEAKER) (test regw=116) 98 U/L 6-55 CBC W/PLT COUNT & AUTO [id number] 05:29:00 Test Item Value Reference Range Comments WHITE BLOOD CELL COUNT (BEAKER) (test sgea=907) 5.9 K/ L 3.5-10.5 RED BLOOD CELL COUNT (BEAKER) (test rmep=987) 3.00 M/ L 3.93-5.22 HEMOGLOBIN (BEAKER) (test cpju=983) 8.5 GM/DL 11.2-15.7 HEMATOCRIT (BEAKER) (test skvt=081) 25.3 % 34.1-44.9 MEAN CORPUSCULAR VOLUME (BEAKER) (test uygz=826) 84.3 fL 79.4-94.8 MEAN CORPUSCULAR HEMOGLOBIN (BEAKER) (test 28.3 pg 25.6-32.2 xawa=720) MEAN CORPUSCULAR HEMOGLOBIN CONC (BEAKER) (test 33.6 GM/DL 32.2-35.5 yycc=658) RED CELL DISTRIBUTION WIDTH (BEAKER) (test 14.8 % 11.7-14.4 wmhb=479) PLATELET COUNT (BEAKER) (test tnle=334) 146 K/CU MM 150-450 MEAN PLATELET VOLUME (BEAKER) (test hqlt=054) 10.1 fL 9.4-12.3 NUCLEATED RED BLOOD CELLS (BEAKER) (test 0 /100 WBC 0-0 jylk=440) NEUTROPHILS RELATIVE PERCENT (BEAKER) (test 67 % qsqu=815) LYMPHOCYTES RELATIVE PERCENT (BEAKER) (test 16 % xiqk=455) MONOCYTES RELATIVE PERCENT (BEAKER) (test 10 % jmgt=228) EOSINOPHILS RELATIVE PERCENT (BEAKER) (test 6 % pxpt=895) BASOPHILS RELATIVE PERCENT (BEAKER) (test 1 % ofso=702) NEUTROPHILS ABSOLUTE COUNT (BEAKER) (test 3.94 K/ L 1.56-6.13 ptvw=152) LYMPHOCYTES ABSOLUTE COUNT (BEAKER) (test 0.96 K/ L 1.18-3.74 uquw=158) MONOCYTES ABSOLUTE COUNT (BEAKER) (test 0.57 K/ L 0.24-0.36 zpmo=760) EOSINOPHILS ABSOLUTE COUNT (BEAKER) (test 0.37 K/ L 0.04-0.36 hdhq=945) BASOPHILS ABSOLUTE COUNT (BEAKER) (test 0.03 K/ L 0.01-0.08 mnlb=919) IMMATURE GRANULOCYTES-RELATIVE PERCENT (BEAKER) 0 % 0-1 (test bldv=0124) POCT-GLUCOSE [id number] 21:01:00 Test Item Value Reference Range Comments POC-GLUCOSE METER (BEAKER) 371 mg/dL 70-110 Notified ALEXI ENNIS/TESTED AT [facility] (test iroj=3445) [address] [place] [address] POCT-GLUCOSE [id number] 17:30:00 Test Item Value Reference Range Comments POC-GLUCOSE METER (BEAKER) 389 mg/dL 70-110 TESTED AT [address] (test vgmy=2999) [facility] [address] POCT-GLUCOSE [id number] 08:50:00 Test Item Value Reference Range Comments POC-GLUCOSE METER (BEAKER) 303 mg/dL 70-110 TESTED AT [address] (test fpxa=7205) [facility] [address] POCT-GLUCOSE [id number] 08:27:00 Test Item Value Reference Range Comments POC-GLUCOSE METER (BEAKER) 342 mg/dL 70-110 Will Repeat Test/TESTED AT (test xdxm=8006) [facility] [address] [facility] [address] CALCIUM, [id number] 07:20:00 Test Item Value Reference Range Comments CALCIUM IONIZED (BEAKER) (test lxgy=034) 0.98 mmol/L 1.12-1.27 PH, BLOOD (BEAKER) (test jddg=6728) 7.41 COMPREHENSIVE METABOLIC [id number] 07:05:00 Test Item Value Reference Range Comments TOTAL PROTEIN (BEAKER) 5.0 gm/dL 6.0-8.3 (test mekg=002) ALBUMIN (BEAKER) (test 3.3 g/dL 3.5-5.0 eulr=1195) ALKALINE PHOSPHATASE 126 U/L 40-150 (BEAKER) (test ikdd=489) BILIRUBIN TOTAL (BEAKER) 1.2 mg/dL 0.2-1.2 (test pwsm=403) SODIUM (BEAKER) (test 128 meq/L 136-145 zhvd=715) POTASSIUM (BEAKER) (test 4.1 meq/L 3.5-5.1 arzv=203) CHLORIDE (BEAKER) (test 98 meq/L 98-107 taoh=399) CO2 (BEAKER) (test 20 meq/L 22-29 xcad=965) BLOOD UREA NITROGEN 43 mg/dL 7-21 (BEAKER) (test erzo=054) CREATININE (BEAKER) (test 2.39 mg/dL 0.57-1.25 unph=904) GLUCOSE RANDOM (BEAKER) 305 mg/dL 70-105 (test lcye=129) CALCIUM (BEAKER) (test 8.1 mg/dL 8.4-10.2 rdha=810) AST (SGOT) (BEAKER) (test 173 U/L 5-34 fxmv=558) ALT (SGPT) (BEAKER) (test 143 U/L 6-55 ijqn=482) EGFR (BEAKER) (test 21 mL/min/1.73 sq m ESTIMATED GFR IS NOT shca=8041) ACCURATE CREATININE CLEARANCE IN PREDICTING GLOMERULAR FILTRATION RATE. ESTIMATED GFR IS NOT APPLICABLE FOR DIALYSIS PATIENTS. [id number] 06:56:00 Test Item Value Reference Range Comments PHOSPHORUS (BEAKER) (test qtyx=916) 2.5 mg/dL 2.3-4.7 [id number] 06:56:00 Test Item Value Reference Range Comments MAGNESIUM (BEAKER) (test nyuo=272) 1.9 mg/dL 1.6-2.6 HEPATIC FUNCTION [id number] 06:56:00 Test Item Value Reference Range Comments TOTAL PROTEIN (BEAKER) (test beia=810) 5.0 gm/dL 6.0-8.3 ALBUMIN (BEAKER) (test otbg=9731) 3.3 g/dL 3.5-5.0 BILIRUBIN TOTAL (BEAKER) (test yaza=975) 1.2 mg/dL 0.2-1.2 BILIRUBIN DIRECT (BEAKER) (test yrmd=612) 0.6 mg/dL 0.1-0.5 ALKALINE PHOSPHATASE (BEAKER) (test mtuc=297) 126 U/L 40-150 AST (SGOT) (BEAKER) (test brzf=165) 173 U/L 5-34 ALT (SGPT) (BEAKER) (test czmh=865) 143 U/L 6-55 CBC W/PLT COUNT & AUTO [id number] 06:17:00 Test Item Value Reference Range Comments WHITE BLOOD CELL COUNT (BEAKER) (test krir=615) 5.7 K/ L 3.5-10.5 RED BLOOD CELL COUNT (BEAKER) (test lgtr=913) 3.40 M/ L 3.93-5.22 HEMOGLOBIN (BEAKER) (test rrde=434) 9.2 GM/DL 11.2-15.7 HEMATOCRIT (BEAKER) (test ojzz=131) 29.1 % 34.1-44.9 MEAN CORPUSCULAR VOLUME (BEAKER) (test xanv=873) 85.6 fL 79.4-94.8 MEAN CORPUSCULAR HEMOGLOBIN (BEAKER) (test 27.1 pg 25.6-32.2 ghmx=641) MEAN CORPUSCULAR HEMOGLOBIN CONC (BEAKER) (test 31.6 GM/DL 32.2-35.5 kwzl=904) RED CELL DISTRIBUTION WIDTH (BEAKER) (test 14.7 % 11.7-14.4 rhlw=617) PLATELET COUNT (BEAKER) (test bxmj=893) 128 K/CU MM 150-450 MEAN PLATELET VOLUME (BEAKER) (test ezjp=379) 10.3 fL 9.4-12.3 NUCLEATED RED BLOOD CELLS (BEAKER) (test 0 /100 WBC 0-0 manl=537) NEUTROPHILS RELATIVE PERCENT (BEAKER) (test 69 % ntvl=003) LYMPHOCYTES RELATIVE PERCENT (BEAKER) (test 15 % kycl=093) MONOCYTES RELATIVE PERCENT (BEAKER) (test 9 % bhgi=450) EOSINOPHILS RELATIVE PERCENT (BEAKER) (test 6 % udms=662) BASOPHILS RELATIVE PERCENT (BEAKER) (test 1 % bwux=093) NEUTROPHILS ABSOLUTE COUNT (BEAKER) (test 3.91 K/ L 1.56-6.13 wmyg=114) LYMPHOCYTES ABSOLUTE COUNT (BEAKER) (test 0.86 K/ L 1.18-3.74 rjcs=789) MONOCYTES ABSOLUTE COUNT (BEAKER) (test 0.51 K/ L 0.24-0.36 emtg=064) EOSINOPHILS ABSOLUTE COUNT (BEAKER) (test 0.35 K/ L 0.04-0.36 gccf=579) BASOPHILS ABSOLUTE COUNT (BEAKER) (test 0.03 K/ L 0.01-0.08 fvro=464) IMMATURE GRANULOCYTES-RELATIVE PERCENT (BEAKER) 0 % 0-1 (test usqk=1892) BODY FLUID CELL COUNT WITH [id number] 17:06:00 Test Item Value Reference Range Comments APPEARANCE FLUID (BEAKER) (test xpuc=433) Hazy Clear COLOR FLUID (BEAKER) (test jkwv=650) Yellow Colorless, Straw RBC FLUID (BEAKER) (test awxk=345) 6000 /cu mm <=1 ADJUSTED WBC FLUID (BEAKER) (test dltn=2264) 125 /cu mm <=5 LINING CELLS (BEAKER) (test qehl=7374) 2 /cu mm <=1 NEUTROPHILS FLUID (BEAKER) (test lgii=2178) 6 % LYMPHS FLUID (BEAKER) (test kdcz=639) 21 % MONO/MACROPHAGE FLUID (BEAKER) (test yrox=849) 73 % EOSINOPHILS FLUID (BEAKER) (test wrlu=696) 0 % BASO FLUID (BEAKER) (test mssu=866) 0 % CONTAINER BODY FLUID (BEAKER) (test qang=8507) EDTA Tube POCT-GLUCOSE [id number] 16:40:00 Test Item Value Reference Range Comments POC-GLUCOSE METER (BEAKER) 396 mg/dL 70-110 TESTED AT [facility] [address] (test elga=4156) [facility] [address] U/S, [id number] 16:12:00limit to 6 LReason for exam:->ascites, limit to 6 LFINAL REPORT Paracentesis dated 02/22/2019 Procedure: Ultrasound-guided paracentesis. Preprocedure diagnosis: Ascites Postprocedure diagnosis: Ascites Conscious sedation: None. Radiologist: Giovanni Haas M.D. Improvement Manager: None Anesthesia: 1% Xylocaine mixed with sodium bicarbonate local anesthesia. Technique: After obtaining informed consent, ultrasound-guided paracentesis was performed under usual sterile technique. Using a 5 sami drainage catheter, puncture was made in the right lower quadrant abdomen. Approximately 6000 cc of serous fluid was removed. Patient tolerated the procedure well without complication. Complication: None Graft/ Implant: None Estimated Blood Loss: None Impression: Ultrasound-guided paracentesis. Signed: Giovanni Haas Verified Date/Time: 02/22/2019 16:12 :23 Reading Location: [facility] C013Y CT Body Reading Room RAD, CHEST, 1 VIEW, NON [id number] 12:22:00Reason for exam:->coughShould this be performed at [...] Verified Date/ Time: 02/22/2019 12:22:24 Reading Location: [facility] C013W Consult Reading Room POCT-GLUCOSE [id number] 07:55:00 Test Item Value Reference Range Comments POC-GLUCOSE METER (BEAKER) 317 mg/dL 70-110 TESTED AT [address] (test nrrz=6016) [facility] [address] POCT-GLUCOSE [id number] 07:24:00 Test Item Value Reference Range Comments POC-GLUCOSE METER (BEAKER) 386 mg/dL 70-110 Notified ALEXI ENNIS/TESTED AT [facility] (test ddau=9470) [address] [place] [address] POCT-GLUCOSE [id number] 07:24:00 Test Item Value Reference Range Comments POC-GLUCOSE METER (BEAKER) 295 mg/dL 70-110 TESTED AT [address] (test vfrk=7938) [facility] [address] POCT-GLUCOSE [id number] 07:24:00 Test Item Value Reference Range Comments POC-GLUCOSE METER (BEAKER) 256 mg/dL 70-110 TESTED AT [address] (test wntu=1714) [facility] [address] BASIC METABOLIC [id number] 06:50:00 Test Item Value Reference Range Comments SODIUM (BEAKER) (test 128 meq/L 136-145 khzb=247) POTASSIUM (BEAKER) (test 4.0 meq/L 3.5-5.1 jtss=926) CHLORIDE (BEAKER) (test 100 meq/L 98-107 dxls=040) CO2 (BEAKER) (test 21 meq/L 22-29 bwkk=433) BLOOD UREA NITROGEN 40 mg/dL 7-21 (BEAKER) (test pswb=423) CREATININE (BEAKER) (test 2.62 mg/dL 0.57-1.25 tney=263) GLUCOSE RANDOM (BEAKER) 351 mg/dL 70-105 (test gdjk=484) CALCIUM (BEAKER) (test 8.0 mg/dL 8.4-10.2 qpsq=962) EGFR (BEAKER) (test 19 mL/min/1.73 sq m ESTIMATED GFR IS NOT jsyf=7109) ACCURATE CREATININE CLEARANCE IN PREDICTING GLOMERULAR FILTRATION RATE. ESTIMATED GFR IS NOT APPLICABLE FOR DIALYSIS PATIENTS. [id number] 06:46:00 Test Item Value Reference Range Comments MAGNESIUM (BEAKER) (test dmkq=535) 1.9 mg/dL 1.6-2.6 BLOOD [id number] 20:01:00 Test Item Value Reference Range Comments CULTURE (BEAKER) (test rcjq=2078) No growth in 5 days BLOOD [id number] 20:01:00 Test Item Value Reference Range Comments CULTURE (BEAKER) (test qwrw=9560) No growth in 5 days POCT-GLUCOSE [id number] 08:39:00 Test Item Value Reference Range Comments POC-GLUCOSE METER (BEAKER) 300 mg/dL 70-110 TESTED AT [facility] [address] (test syic=7060) [facility] [address] POCT-GLUCOSE [id number] 08:39:00 Test Item Value Reference Range Comments POC-GLUCOSE METER (BEAKER) 330 mg/dL 70-110 Notified ALEXI ENNIS/TESTED AT [facility] (test kmvt=9893) [address] [facility] [address] COMPREHENSIVE METABOLIC [id number] 08:25:00 Test Item Value Reference Range Comments TOTAL PROTEIN (BEAKER) 4.9 gm/dL 6.0-8.3 (test fxnn=860) ALBUMIN (BEAKER) (test 3.3 g/dL 3.5-5.0 rfbn=6562) ALKALINE PHOSPHATASE 129 U/L 40-150 (BEAKER) (test xgbn=564) BILIRUBIN TOTAL (BEAKER) 1.2 mg/dL 0.2-1.2 (test nqan=666) SODIUM (BEAKER) (test 130 meq/L 136-145 ukgv=166) POTASSIUM (BEAKER) (test 4.5 meq/L 3.5-5.1 qwja=211) CHLORIDE (BEAKER) (test 102 meq/L 98-107 tqdm=292) CO2 (BEAKER) (test 20 meq/L 22-29 tvvv=471) BLOOD UREA NITROGEN 32 mg/dL 7-21 (BEAKER) (test rfhc=303) CREATININE (BEAKER) (test 2.28 mg/dL 0.57-1.25 etdj=631) GLUCOSE RANDOM (BEAKER) 341 mg/dL 70-105 (test mrji=290) CALCIUM (BEAKER) (test 8.1 mg/dL 8.4-10.2 ewbm=062) AST (SGOT) (BEAKER) (test 851 U/L 5-34 utky=955) ALT (SGPT) (BEAKER) (test 345 U/L 6-55 koan=861) EGFR (BEAKER) (test 22 mL/min/1.73 sq m ESTIMATED GFR IS NOT ywui=5019) ACCURATE CREATININE CLEARANCE IN PREDICTING GLOMERULAR FILTRATION RATE. ESTIMATED GFR IS NOT APPLICABLE FOR DIALYSIS PATIENTS. [id number] 08:19:00 Test Item Value Reference Range Comments PHOSPHORUS (BEAKER) (test aipx=745) 2.3 mg/dL 2.3-4.7 [id number] 08:19:00 Test Item Value Reference Range Comments MAGNESIUM (BEAKER) (test zouq=849) 1.9 mg/dL 1.6-2.6 CALCIUM, [id number] 07:20:00 Test Item Value Reference Range Comments CALCIUM IONIZED (BEAKER) (test wqtj=551) 0.98 mmol/L 1.12-1.27 PH, BLOOD (BEAKER) (test arbk=6854) 7.42 CBC W/PLT COUNT & AUTO [id number] 06:36:00 Test Item Value Reference Range Comments WHITE BLOOD CELL COUNT (BEAKER) (test odxf=946) 8.1 K/ L 3.5-10.5 RED BLOOD CELL COUNT (BEAKER) (test engw=183) 3.43 M/ L 3.93-5.22 HEMOGLOBIN (BEAKER) (test esjk=475) 9.2 GM/DL 11.2-15.7 HEMATOCRIT (BEAKER) (test myfi=126) 29.3 % 34.1-44.9 MEAN CORPUSCULAR VOLUME (BEAKER) (test ylxu=589) 85.4 fL 79.4-94.8 MEAN CORPUSCULAR HEMOGLOBIN (BEAKER) (test 26.8 pg 25.6-32.2 tdje=013) MEAN CORPUSCULAR HEMOGLOBIN CONC (BEAKER) (test 31.4 GM/DL 32.2-35.5 xkhe=338) RED CELL DISTRIBUTION WIDTH (BEAKER) (test 14.6 % 11.7-14.4 kvaj=978) PLATELET COUNT (BEAKER) (test zafc=734) 132 K/CU MM 150-450 MEAN PLATELET VOLUME (BEAKER) (test pptr=174) 9.3 fL 9.4-12.3 NUCLEATED RED BLOOD CELLS (BEAKER) (test 0 /100 WBC 0-0 swcu=396) NEUTROPHILS RELATIVE PERCENT (BEAKER) (test 77 % zutd=817) LYMPHOCYTES RELATIVE PERCENT (BEAKER) (test 13 % dtiy=715) MONOCYTES RELATIVE PERCENT (BEAKER) (test 8 % hcfu=861) EOSINOPHILS RELATIVE PERCENT (BEAKER) (test 2 % hizt=846) BASOPHILS RELATIVE PERCENT (BEAKER) (test 1 % takl=489) NEUTROPHILS ABSOLUTE COUNT (BEAKER) (test 6.17 K/ L 1.56-6.13 vmbf=936) LYMPHOCYTES ABSOLUTE COUNT (BEAKER) (test 1.02 K/ L 1.18-3.74 dmnc=524) MONOCYTES ABSOLUTE COUNT (BEAKER) (test 0.61 K/ L 0.24-0.36 gcpx=932) EOSINOPHILS ABSOLUTE COUNT (BEAKER) (test 0.18 K/ L 0.04-0.36 sfxw=895) BASOPHILS ABSOLUTE COUNT (BEAKER) (test 0.05 K/ L 0.01-0.08 nkjx=507) IMMATURE GRANULOCYTES-RELATIVE PERCENT (BEAKER) 1 % 0-1 (test cnlc=2183) BASIC METABOLIC [id number] 19:24:00 Test Item Value Reference Range Comments SODIUM (BEAKER) (test 132 meq/L 136-145 alnr=016) POTASSIUM (BEAKER) (test 4.8 meq/L 3.5-5.1 seom=695) CHLORIDE (BEAKER) (test 103 meq/L 98-107 ymmi=252) CO2 (BEAKER) (test 20 meq/L 22-29 eibu=694) BLOOD UREA NITROGEN 30 mg/dL 7-21 (BEAKER) (test thih=796) CREATININE (BEAKER) (test 1.85 mg/dL 0.57-1.25 jzxt=340) GLUCOSE RANDOM (BEAKER) 297 mg/dL 70-105 (test foeg=105) CALCIUM (BEAKER) (test 8.7 mg/dL 8.4-10.2 jvux=332) EGFR (BEAKER) (test 28 mL/min/1.73 sq m ESTIMATED GFR IS NOT zzff=6244) ACCURATE CREATININE CLEARANCE IN PREDICTING GLOMERULAR FILTRATION RATE. ESTIMATED GFR IS NOT APPLICABLE FOR DIALYSIS PATIENTS. Please draw [address] Quiroz at [phone] with results.Call [phone] 19:22:00 Test Item Value Reference Range Comments SODIUM (BEAKER) (test rmau=050) 132 meq/L 136-145 POTASSIUM (BEAKER) (test qdje=401) 4.8 meq/L 3.5-5.1 CHLORIDE (BEAKER) (test xxwq=262) 103 meq/L 98-107 CO2 (BEAKER) (test dyyx=915) 20 meq/L 22-29 Please draw 4 hours after [address]PS. Page Dr. Quiroz at [phone] with results.Call [id number] 18:11:00 Test Item Value Reference Range Comments POC-GLUCOSE METER (BEAKER) 314 mg/dL 70-110 TESTED AT [address] (test xbqk=8587) [place] [id number] POCT-GLUCOSE [id number] 17:29:00 Test Item Value Reference Range Comments POC-GLUCOSE METER (BEAKER) 255 mg/dL 70-110 TESTED AT [address] (test vpoh=0833) [facility] [address] POCT-GLUCOSE [id number] 13:02:00 Test Item Value Reference Range Comments POC-GLUCOSE METER (BEAKER) 289 mg/dL 70-110 TESTED AT [address] (test gkkf=3559) [place] [id number] BODY FLUID CULTURE + GRAM [id number] 12:08:00 Test Item Value Reference Range Comments CULTURE (BEAKER) (test caue=7544) No growth GRAM STAIN RESULT (BEAKER) (test <1+ WBCs asku=4338) GRAM STAIN RESULT (BEAKER) (test No organisms seen jvux=50791) SEAMUS [id number] 09:29:00Reason for exam:->cirrhosis/ portal hypertension , refractory [...] and a bleeding placement of a 10 Bhutanese sheath from theright hepatic vein to the [...] 1 L of yellow fluid. The 5 Bhutanese needle/catheter was inserted with real-time ultrasound guidance into the peritoneal cavity in the right lateral abdomen following sterile preparation. Following this, the sheath catheter was removed. CONCLUSION: Successful TIPS and paracentesis. Signed: Yulia Kaba MDReport Verified Date/Time: 02/20/2019 09:29:18 Reading Location : [place] [address] Angio Body Reading Room CALCIUM, [id number] 06:43:00 Test Item Value Reference Range Comments CALCIUM IONIZED (BEAKER) (test vchq=604) 1.02 mmol/L 1.12-1.27 PH, BLOOD (BEAKER) (test ecns=8558) 7.40 [id number] 06:12:00 Test Item Value Reference Range Comments PHOSPHORUS (BEAKER) (test covw=140) 2.5 mg/dL 2.3-4.7 [id number] 06:12:00 Test Item Value Reference Range Comments MAGNESIUM (BEAKER) (test ywuh=150) 1.6 mg/dL 1.6-2.6 HEPATIC FUNCTION [id number] 06:12:00 Test Item Value Reference Range Comments TOTAL PROTEIN (BEAKER) (test ljuq=986) 5.3 gm/dL 6.0-8.3 ALBUMIN (BEAKER) (test ihke=4104) 3.6 g/dL 3.5-5.0 BILIRUBIN TOTAL (BEAKER) (test kfjb=346) 1.2 mg/dL 0.2-1.2 BILIRUBIN DIRECT (BEAKER) (test dxzc=038) 0.6 mg/dL 0.1-0.5 ALKALINE PHOSPHATASE (BEAKER) (test dqut=017) 80 U/L 40-150 AST (SGOT) (BEAKER) (test dabx=703) 99 U/L 5-34 ALT (SGPT) (BEAKER) (test ietc=853) 52 U/L 6-55 COMPREHENSIVE METABOLIC [id number] 06:12:00 Test Item Value Reference Range Comments TOTAL PROTEIN (BEAKER) 5.3 gm/dL 6.0-8.3 (test ehzi=906) ALBUMIN (BEAKER) (test 3.6 g/dL 3.5-5.0 xwns=6128) ALKALINE PHOSPHATASE 80 U/L 40-150 (BEAKER) (test cghy=052) BILIRUBIN TOTAL (BEAKER) 1.2 mg/dL 0.2-1.2 (test qsmo=927) SODIUM (BEAKER) (test 133 meq/L 136-145 jtiv=155) POTASSIUM (BEAKER) (test 5.4 meq/L 3.5-5.1 nnqb=129) CHLORIDE (BEAKER) (test 104 meq/L 98-107 kkml=750) CO2 (BEAKER) (test 22 meq/L 22-29 jora=483) BLOOD UREA NITROGEN 27 mg/dL 7-21 (BEAKER) (test lesw=631) CREATININE (BEAKER) (test 1.58 mg/dL 0.57-1.25 yxcu=809) GLUCOSE RANDOM (BEAKER) 300 mg/dL 70-105 (test cmec=055) CALCIUM (BEAKER) (test 8.4 mg/dL 8.4-10.2 nioz=350) AST (SGOT) (BEAKER) (test 99 U/L 5-34 nzsi=666) ALT (SGPT) (BEAKER) (test 52 U/L 6-55 masu=183) EGFR (BEAKER) (test 33 mL/min/1.73 sq m ESTIMATED GFR IS NOT vnwu=2210) ACCURATE CREATININE CLEARANCE IN PREDICTING GLOMERULAR FILTRATION RATE. ESTIMATED GFR IS NOT APPLICABLE FOR DIALYSIS PATIENTS. PROTHROMBIN [id number] 05:57:00 Test Item Value Reference Range Comments PROTIME (BEAKER) (test nqsd=075) 16.4 seconds 11.7-14.7 INR (BEAKER) (test diio=887) 1.3 <=5.9 RECOMMENDED COUMADIN/WARFARIN INR THERAPY RANGESSTANDARD DOSE: 2.0 - 3.0 Includes: PROPHYLAXIS forvenous thrombosis, systemic embolization; TREATMENT for venous thrombosis and/or pulmonary embolus.HIGH RISK: Target INR is 2.5-3.5 for patients with mechanical heart valves.CBC W/PLT COUNT & AUTO [id number] 05:54:00 Test Item Value Reference Range Comments WHITE BLOOD CELL COUNT (BEAKER) (test ikpx=443) 7.9 K/ L 3.5-10.5 RED BLOOD CELL COUNT (BEAKER) (test wgzb=080) 3.24 M/ L 3.93-5.22 HEMOGLOBIN (BEAKER) (test rsxy=259) 8.9 GM/DL 11.2-15.7 HEMATOCRIT (BEAKER) (test vrtg=729) 28.0 % 34.1-44.9 MEAN CORPUSCULAR VOLUME (BEAKER) (test dxyg=011) 86.4 fL 79.4-94.8 MEAN CORPUSCULAR HEMOGLOBIN (BEAKER) (test 27.5 pg 25.6-32.2 msod=436) MEAN CORPUSCULAR HEMOGLOBIN CONC (BEAKER) (test 31.8 GM/DL 32.2-35.5 twmg=506) RED CELL DISTRIBUTION WIDTH (BEAKER) (test 14.4 % 11.7-14.4 eiqt=334) PLATELET COUNT (BEAKER) (test xijc=431) 132 K/CU MM 150-450 MEAN PLATELET VOLUME (BEAKER) (test yhsy=783) 9.3 fL 9.4-12.3 NUCLEATED RED BLOOD CELLS (BEAKER) (test 0 /100 WBC 0-0 ljit=242) NEUTROPHILS RELATIVE PERCENT (BEAKER) (test 83 % ghpt=867) LYMPHOCYTES RELATIVE PERCENT (BEAKER) (test 10 % jadm=247) MONOCYTES RELATIVE PERCENT (BEAKER) (test 7 % vbrk=649) EOSINOPHILS RELATIVE PERCENT (BEAKER) (test 0 % ubgi=877) BASOPHILS RELATIVE PERCENT (BEAKER) (test 0 % posf=736) NEUTROPHILS ABSOLUTE COUNT (BEAKER) (test 6.55 K/ L 1.56-6.13 kxvm=101) LYMPHOCYTES ABSOLUTE COUNT (BEAKER) (test 0.77 K/ L 1.18-3.74 fwli=348) MONOCYTES ABSOLUTE COUNT (BEAKER) (test 0.55 K/ L 0.24-0.36 jujz=940) EOSINOPHILS ABSOLUTE COUNT (BEAKER) (test 0.00 K/ L 0.04-0.36 nnla=884) BASOPHILS ABSOLUTE COUNT (BEAKER) (test 0.02 K/ L 0.01-0.08 brxk=230) IMMATURE GRANULOCYTES-RELATIVE PERCENT (BEAKER) 0 % 0-1 (test rlmh=7682) POCT-GLUCOSE [id number] 19:01:00 Test Item Value Reference Range Comments POC-GLUCOSE METER (BEAKER) 301 mg/dL 70-110 TESTED AT [facility] [address] [place] [address] (test bumd=0593) [facility] [address] [address], ABDOMEN, WITHOUT [id number] 12:33:00FINAL REPORT ABDOMINAL CT DATED 02/19/2019 CLINICAL [...] [place] Verified Date/Time: 02/19/2019 12:33:54 Reading Location: [address] Body Reading Room Electronicallysigned by: GIOVANNI HAAS M.D. on 02/19/2019 12:33 PMBODY FLUID CULTURE + GRAM [id number] 12:08:00 Test Item Value Reference Range Comments CULTURE (BEAKER) (test qdhb=1993) No growth GRAM STAIN RESULT (BEAKER) (test <1+ WBCs zcsn=6644) GRAM STAIN RESULT (BEAKER) (test No organisms seen dguk=76580) POCT-GLUCOSE [id number] 09:38:00 Test Item Value Reference Range Comments POC-GLUCOSE METER (BEAKER) 274 mg/dL 70-110 TESTED AT [address] (test aqhj=3922) [facility] [address] CALCIUM, [id number] 06:56:00 Test Item Value Reference Range Comments CALCIUM IONIZED (BEAKER) (test nssk=917) 1.05 mmol/L 1.12-1.27 PH, BLOOD (BEAKER) (test hntd=0572) 7.40 [id number] 06:22:00 Test Item Value Reference Range Comments PHOSPHORUS (BEAKER) (test cenc=281) 2.3 mg/dL 2.3-4.7 [id number] 06:22:00 Test Item Value Reference Range Comments MAGNESIUM (BEAKER) (test fucx=609) 1.7 mg/dL 1.6-2.6 HEPATIC FUNCTION [id number] 06:22:00 Test Item Value Reference Range Comments TOTAL PROTEIN (BEAKER) (test qaez=400) 5.6 gm/dL 6.0-8.3 ALBUMIN (BEAKER) (test ebee=2618) 3.4 g/dL 3.5-5.0 BILIRUBIN TOTAL (BEAKER) (test ctnw=421) 0.9 mg/dL 0.2-1.2 BILIRUBIN DIRECT (BEAKER) (test moau=600) 0.4 mg/dL 0.1-0.5 ALKALINE PHOSPHATASE (BEAKER) (test dawt=251) 121 U/L 40-150 AST (SGOT) (BEAKER) (test rfob=776) 28 U/L 5-34 ALT (SGPT) (BEAKER) (test ddxn=866) 12 U/L 6-55 COMPREHENSIVE METABOLIC [id number] 06:22:00 Test Item Value Reference Range Comments TOTAL PROTEIN (BEAKER) 5.6 gm/dL 6.0-8.3 (test nhgq=908) ALBUMIN (BEAKER) (test 3.4 g/dL 3.5-5.0 avmq=0370) ALKALINE PHOSPHATASE 121 U/L 40-150 (BEAKER) (test ugsx=170) BILIRUBIN TOTAL (BEAKER) 0.9 mg/dL 0.2-1.2 (test ijdj=670) SODIUM (BEAKER) (test 135 meq/L 136-145 cnlw=045) POTASSIUM (BEAKER) (test 4.5 meq/L 3.5-5.1 oykv=589) CHLORIDE (BEAKER) (test 105 meq/L 98-107 zwaz=878) CO2 (BEAKER) (test 22 meq/L 22-29 gobu=310) BLOOD UREA NITROGEN 29 mg/dL 7-21 (BEAKER) (test wgkg=308) CREATININE (BEAKER) (test 1.38 mg/dL 0.57-1.25 otkt=523) GLUCOSE RANDOM (BEAKER) 313 mg/dL 70-105 (test wahm=135) CALCIUM (BEAKER) (test 8.7 mg/dL 8.4-10.2 dkqp=286) AST (SGOT) (BEAKER) (test 28 U/L 5-34 xxzc=739) ALT (SGPT) (BEAKER) (test 12 U/L 6-55 cvlg=232) EGFR (BEAKER) (test 39 mL/min/1.73 sq m ESTIMATED GFR IS NOT vzzs=8636) ACCURATE CREATININE CLEARANCE IN PREDICTING GLOMERULAR FILTRATION RATE. ESTIMATED GFR IS NOT APPLICABLE FOR DIALYSIS PATIENTS. PROTHROMBIN [id number] 06:15:00 Test Item Value Reference Range Comments PROTIME (BEAKER) (test gitl=242) 14.0 seconds 11.7-14.7 INR (BEAKER) (test gfad=377) 1.1 <=5.9 RECOMMENDED COUMADIN/WARFARIN INR THERAPY RANGESSTANDARD DOSE: 2.0 - 3.0 Includes: PROPHYLAXIS forvenous thrombosis, systemic embolization; TREATMENT for venous thrombosis and/or pulmonary embolus.HIGH RISK: Target INR is 2.5-3.5 for patients with mechanical heart valves.CBC W/PLT COUNT & AUTO [id number] 05:57:00 Test Item Value Reference Range Comments WHITE BLOOD CELL COUNT (BEAKER) (test lhms=602) 6.9 K/ L 3.5-10.5 RED BLOOD CELL COUNT (BEAKER) (test owxy=955) 3.83 M/ L 3.93-5.22 HEMOGLOBIN (BEAKER) (test rlrb=025) 10.5 GM/DL 11.2-15.7 HEMATOCRIT (BEAKER) (test wxmz=305) 33.1 % 34.1-44.9 MEAN CORPUSCULAR VOLUME (BEAKER) (test jhph=760) 86.4 fL 79.4-94.8 MEAN CORPUSCULAR HEMOGLOBIN (BEAKER) (test 27.4 pg 25.6-32.2 roio=142) MEAN CORPUSCULAR HEMOGLOBIN CONC (BEAKER) (test 31.7 GM/DL 32.2-35.5 gewh=350) RED CELL DISTRIBUTION WIDTH (BEAKER) (test 14.4 % 11.7-14.4 ijpa=707) PLATELET COUNT (BEAKER) (test gaxz=979) 175 K/CU MM 150-450 MEAN PLATELET VOLUME (BEAKER) (test tgsn=732) 9.9 fL 9.4-12.3 NUCLEATED RED BLOOD CELLS (BEAKER) (test 0 /100 WBC 0-0 clgf=270) NEUTROPHILS RELATIVE PERCENT (BEAKER) (test 73 % amsz=725) LYMPHOCYTES RELATIVE PERCENT (BEAKER) (test 16 % vanx=906) MONOCYTES RELATIVE PERCENT (BEAKER) (test 7 % rume=976) EOSINOPHILS RELATIVE PERCENT (BEAKER) (test 4 % yisk=020) BASOPHILS RELATIVE PERCENT (BEAKER) (test 1 % ohnq=383) NEUTROPHILS ABSOLUTE COUNT (BEAKER) (test 4.99 K/ L 1.56-6.13 vzvj=523) LYMPHOCYTES ABSOLUTE COUNT (BEAKER) (test 1.09 K/ L 1.18-3.74 ekti=909) MONOCYTES ABSOLUTE COUNT (BEAKER) (test 0.50 K/ L 0.24-0.36 vmmu=171) EOSINOPHILS ABSOLUTE COUNT (BEAKER) (test 0.25 K/ L 0.04-0.36 odkz=408) BASOPHILS ABSOLUTE COUNT (BEAKER) (test 0.04 K/ L 0.01-0.08 zvvl=036) IMMATURE GRANULOCYTES-RELATIVE PERCENT (BEAKER) 0 % 0-1 (test kpvj=6614) POCT-GLUCOSE [id number] 23:05:00 Test Item Value Reference Range Comments POC-GLUCOSE METER (BEAKER) 412 mg/dL 70-110 Will Repeat Test/TESTED AT (test xuvf=0473) [address] [address] POCT-GLUCOSE [id number] 22:12:00 Test Item Value Reference Range Comments POC-GLUCOSE METER (BEAKER) 371 mg/dL 70-110 TESTED AT [address] (test vpen=0190) [facility] [address] BODY FLUID CELL COUNT WITH [id number] 13:06:00 Test Item Value Reference Range Comments APPEARANCE FLUID (BEAKER) (test eatm=169) Slightly Hazy Clear COLOR FLUID (BEAKER) (test jqkr=506) Yellow Colorless, Straw RBC FLUID (BEAKER) (test rvxu=490) 252 /cu mm <=1 ADJUSTED WBC FLUID (BEAKER) (test craw=2599) 112 /cu mm <=5 LINING CELLS (BEAKER) (test nuvt=0694) 10 /cu mm <=1 NEUTROPHILS FLUID (BEAKER) (test owob=6327) 8 % LYMPHS FLUID (BEAKER) (test rgts=538) 40 % MONO/MACROPHAGE FLUID (BEAKER) (test 43 % uygu=352) EOSINOPHILS FLUID (BEAKER) (test fout=821) 0 % BASO FLUID (BEAKER) (test unty=539) 0 % CONTAINER BODY FLUID (BEAKER) (test EDTA Tube nmub=2283) U/S, [id number] 10:21:00Limit 8 LReason for exam:->ascites, limit 8 [...] skin and deep soft tissues. A 5 Bhutanese one-step catheter was inserted and removed from the peritoneal space and approximately 8.0 liters of clear yellow fluid was aspirated from the abdomen. There were no immediate complications. Impression: Successful ultrasound guided paracentesis with aspiration of 8.0 liters of fluid. Signed: kAil Chung MDReport Verified Date/ Time: 02/18/2019 10:21:08 Reading Location: [address] Ultrasound Reading Room [id number] 07:08:00 Test Item Value Reference Range Comments MAGNESIUM (BEAKER) (test kkyi=807) 1.7 mg/dL 1.6-2.6 HEPATIC FUNCTION [id number] 07:08:00 Test Item Value Reference Range Comments TOTAL PROTEIN (BEAKER) (test bpiz=142) 5.4 gm/dL 6.0-8.3 ALBUMIN (BEAKER) (test mwrh=3330) 3.2 g/dL 3.5-5.0 BILIRUBIN TOTAL (BEAKER) (test zecj=220) 0.8 mg/dL 0.2-1.2 BILIRUBIN DIRECT (BEAKER) (test njky=329) 0.4 mg/dL 0.1-0.5 ALKALINE PHOSPHATASE (BEAKER) (test ctwb=337) 104 U/L 40-150 AST (SGOT) (BEAKER) (test lfrs=845) 20 U/L 5-34 ALT (SGPT) (BEAKER) (test yxkz=557) 10 U/L 6-55 COMPREHENSIVE METABOLIC [id number] 07:08:00 Test Item Value Reference Range Comments TOTAL PROTEIN (BEAKER) 5.4 gm/dL 6.0-8.3 (test irwg=569) ALBUMIN (BEAKER) (test 3.2 g/dL 3.5-5.0 dwxe=6358) ALKALINE PHOSPHATASE 104 U/L 40-150 (BEAKER) (test okft=841) BILIRUBIN TOTAL (BEAKER) 0.8 mg/dL 0.2-1.2 (test ccpi=563) SODIUM (BEAKER) (test 136 meq/L 136-145 llob=158) POTASSIUM (BEAKER) (test 4.3 meq/L 3.5-5.1 btun=416) CHLORIDE (BEAKER) (test 108 meq/L 98-107 qalg=259) CO2 (BEAKER) (test 22 meq/L 22-29 mbzw=906) BLOOD UREA NITROGEN 31 mg/dL 7-21 (BEAKER) (test hvke=535) CREATININE (BEAKER) (test 1.26 mg/dL 0.57-1.25 gjqa=074) GLUCOSE RANDOM (BEAKER) 262 mg/dL 70-105 (test qott=421) CALCIUM (BEAKER) (test 8.5 mg/dL 8.4-10.2 mfpl=306) AST (SGOT) (BEAKER) (test 20 U/L 5-34 sumn=244) ALT (SGPT) (BEAKER) (test 10 U/L 6-55 kkcy=709) EGFR (BEAKER) (test 43 mL/min/1.73 sq m ESTIMATED GFR IS NOT rrkz=5725) ACCURATE CREATININE CLEARANCE IN PREDICTING GLOMERULAR FILTRATION RATE. ESTIMATED GFR IS NOT APPLICABLE FOR DIALYSIS PATIENTS. [id number] 07:07:00 Test Item Value Reference Range Comments PHOSPHORUS (BEAKER) (test ropv=595) 2.7 mg/dL 2.3-4.7 POCT-GLUCOSE [id number] 06:31:00 Test Item Value Reference Range Comments POC-GLUCOSE METER (BEAKER) 249 mg/dL 70-110 TESTED AT [facility] [address] [facility] (test vwgx=1217) [facility] [address] URINALYSIS W/ [id number] 06:17:00 Test Item Value Reference Range Comments COLOR (BEAKER) (test iecw=914) Yellow CLARITY (BEAKER) (test crsd=694) Clear SPECIFIC GRAVITY UA (BEAKER) (test hdfd=260) 1.013 1.001-1.035 PH UA (BEAKER) (test aioy=389) 5.0 5.0-8.0 PROTEIN UA (BEAKER) (test uxok=131) Negative Negative GLUCOSE UA (BEAKER) (test aufa=497) 100 mg/dL Negative KETONES UA (BEAKER) (test fqcf=881) Negative Negative BILIRUBIN UA (BEAKER) (test jgiq=459) Negative Negative BLOOD UA (BEAKER) (test chqr=952) Negative Negative NITRITE UA (BEAKER) (test mhem=213) Negative Negative LEUKOCYTE ESTERASE UA (BEAKER) (test bmjj=292) Large Negative UROBILINOGEN UA (BEAKER) (test ldwd=188) 0.2 mg/dL 0.2-1.0 RBC UA (BEAKER) (test qzzx=153) 2 /HPF WBC UA (BEAKER) (test tsoi=857) 24 /HPF SQUAMOUS EPITHELIAL (BEAKER) (test aiqd=990) 14 /HPF HYALINE CASTS (BEAKER) (test fbpx=490) 3 /LPF SOURCE(BEAKER) (test pqfu=7113) Urine, Voided [id number] 05:53:00 Test Item Value Reference Range Comments PARTIAL THROMBOPLASTIN TIME (BEAKER) (test 20.1 seconds 22.5-36.0 isox=197) CALCIUM, [id number] 05:50:00 Test Item Value Reference Range Comments CALCIUM IONIZED (BEAKER) (test fwsh=803) 1.00 mmol/L 1.12-1.27 PH, BLOOD (BEAKER) (test qvnc=0058) 7.43 PROTHROMBIN TIME/[id number] 04:54:00 Test Item Value Reference Range Comments PROTIME (BEAKER) (test emcr=376) 13.8 seconds 11.7-14.7 INR (BEAKER) (test wctp=028) 1.0 <=5.9 RECOMMENDED COUMADIN/WARFARIN INR THERAPY RANGESSTANDARD DOSE: 2.0 - 3.0 Includes: PROPHYLAXIS forvenous thrombosis, systemic embolization; TREATMENT for venous thrombosis and/or pulmonary embolus.HIGH RISK: Target INR is 2.5-3.5 for patients with mechanical heart valves.CREATININE, RANDOM [id number] 04: 48:00 Test Item Value Reference Range Comments CREATININE URINE (BEAKER) (test kdus=044) 115.9 mg/dL Reference Range: No NormalsPROTEIN, RANDOM [id number] 04:48:00 Test Item Value Reference Range Comments PROTEIN, URINE (BEAKER) (test yeqn=7770) 12 mg/dL 0-14 CBC W/PLT COUNT & AUTO [id number] 04:30:00 Test Item Value Reference Range Comments WHITE BLOOD CELL COUNT (BEAKER) (test qioz=474) 5.2 K/ L 3.5-10.5 RED BLOOD CELL COUNT (BEAKER) (test wwuq=423) 3.58 M/ L 3.93-5.22 HEMOGLOBIN (BEAKER) (test rvwu=315) 9.8 GM/DL 11.2-15.7 HEMATOCRIT (BEAKER) (test vpfr=782) 31.6 % 34.1-44.9 MEAN CORPUSCULAR VOLUME (BEAKER) (test yddg=122) 88.3 fL 79.4-94.8 MEAN CORPUSCULAR HEMOGLOBIN (BEAKER) (test 27.4 pg 25.6-32.2 zlxy=553) MEAN CORPUSCULAR HEMOGLOBIN CONC (BEAKER) (test 31.0 GM/DL 32.2-35.5 duzg=426) RED CELL DISTRIBUTION WIDTH (BEAKER) (test 14.4 % 11.7-14.4 rwob=533) PLATELET COUNT (BEAKER) (test uywe=082) 173 K/CU MM 150-450 MEAN PLATELET VOLUME (BEAKER) (test juto=850) 9.6 fL 9.4-12.3 NUCLEATED RED BLOOD CELLS (BEAKER) (test 0 /100 WBC 0-0 erbh=850) NEUTROPHILS RELATIVE PERCENT (BEAKER) (test 67 % yxyo=658) LYMPHOCYTES RELATIVE PERCENT (BEAKER) (test 19 % qzzh=245) MONOCYTES RELATIVE PERCENT (BEAKER) (test 8 % ujek=733) EOSINOPHILS RELATIVE PERCENT (BEAKER) (test 5 % zusu=382) BASOPHILS RELATIVE PERCENT (BEAKER) (test 1 % trls=406) NEUTROPHILS ABSOLUTE COUNT (BEAKER) (test 3.43 K/ L 1.56-6.13 rust=397) LYMPHOCYTES ABSOLUTE COUNT (BEAKER) (test 0.98 K/ L 1.18-3.74 izhl=793) MONOCYTES ABSOLUTE COUNT (BEAKER) (test 0.42 K/ L 0.24-0.36 thsp=011) EOSINOPHILS ABSOLUTE COUNT (BEAKER) (test 0.26 K/ L 0.04-0.36 exij=640) BASOPHILS ABSOLUTE COUNT (BEAKER) (test 0.04 K/ L 0.01-0.08 brwv=005) IMMATURE GRANULOCYTES-RELATIVE PERCENT (BEAKER) 0 % 0-1 (test mlnf=9693) U/S, ABDOMINAL, WITH [id number] 03:48:00Reason for exam:->TIPS workup , assess for [...] MDReport Verified Date/Time: 02/18/2019 03:48:21 Reading Location: [address] Neuro Reading Room Electronically signed by: Se SCHNEIDER 2018 03:48 AMPOCT-GLUCOSE [id number] 00:28:00 Test Item Value Reference Range Comments POC-GLUCOSE METER (BEAKER) 330 mg/dL 70-110 Will Repeat Test/TESTED AT (test syqa=5955) [facility] [address] [facility] [address] BODY FLUID CELL COUNT WITH [id number] 18:02:00 Test Item Value Reference Range Comments APPEARANCE FLUID (BEAKER) (test smwb=957) Clear Clear COLOR FLUID (BEAKER) (test djnr=766) Yellow Colorless, Straw RBC FLUID (BEAKER) (test yafg=388) 20 /cu mm <=1 ADJUSTED WBC FLUID (BEAKER) (test mzqf=4681) 50 /cu mm <=5 LINING CELLS (BEAKER) (test bhbi=6699) 0 /cu mm <=1 NEUTROPHILS FLUID (BEAKER) (test qsbz=5445) 1 % LYMPHS FLUID (BEAKER) (test rebm=477) 38 % MONO/MACROPHAGE FLUID (BEAKER) (test rhlj=149) 61 % EOSINOPHILS FLUID (BEAKER) (test fogu=868) 0 % BASO FLUID (BEAKER) (test tuuz=234) 0 % CONTAINER BODY FLUID (BEAKER) (test vjzr=6257) EDTA Tube U/S, [id number] 16:30:00limit volume to 8 LReason for exam:-> [...] MDReport Verified Date/Time: 02/17 16:30:42 Reading Location: [address] Ultrasound Reading Room POCT-GLUCOSE [id number] 09:48:00 Test Item Value Reference Range Comments POC-GLUCOSE METER (BEAKER) 198 mg/dL 70-110 TESTED AT [address] (test whqx=3374) [facility] [address] BASIC METABOLIC [id number] 06:30:00 Test Item Value Reference Range Comments SODIUM (BEAKER) (test 137 meq/L 136-145 huez=246) POTASSIUM (BEAKER) (test 4.5 meq/L 3.5-5.1 tqts=375) CHLORIDE (BEAKER) (test 107 meq/L 98-107 tlba=337) CO2 (BEAKER) (test 24 meq/L 22-29 lrlr=914) BLOOD UREA NITROGEN 41 mg/dL 7-21 (BEAKER) (test fkwr=708) CREATININE (BEAKER) (test 1.48 mg/dL 0.57-1.25 knxs=937) GLUCOSE RANDOM (BEAKER) 200 mg/dL 70-105 (test xwij=857) CALCIUM (BEAKER) (test 8.9 mg/dL 8.4-10.2 kvif=214) EGFR (BEAKER) (test 36 mL/min/1.73 sq m ESTIMATED GFR IS NOT mnna=5780) ACCURATE CREATININE CLEARANCE IN PREDICTING GLOMERULAR FILTRATION RATE. ESTIMATED GFR IS NOT APPLICABLE FOR DIALYSIS PATIENTS. POCT-GLUCOSE [id number] 17:31:00 Test Item Value Reference Range Comments POC-GLUCOSE METER (BEAKER) 165 mg/dL 70-110 TESTED AT [facility] [address] [facility] (test bnep=6990) [facility] [address] U/S, [id number] 16:00:00Reason for exam:->ascites SOBFINAL REPORT PROCEDURE: Ultrasound-guided paracentesis. INDICATION: Ascites. DESCRIPTION: This paracentesis was performed by Lesley Parnell under the direct supervision of Thomas Hendrix. After obtaining informed written consent, ultrasound scan of the abdomen identified ascites in the right lower quadrant. The overlying skin was prepped and draped in the usual, sterile fashion andlocal 2% lidocaine anesthesia was administered. A 5 Bhutanese catheter was advanced into the peritonealcavity and 6000 mL of clear yellow fluid was removed. The catheter was removed without immediate complication. Samples were sent for analysis. IMPRESSION: Uncomplicated ultrasound-guided paracentesis with 6000 mL fluid removed. Signed: Thomas Hendrix [facility] Verified Date/Time: 16:00:46 Reading Location: [address] Ultrasound Reading Room BODY FLUID CELL COUNT WITH [id number] 15:52:00 Test Item Value Reference Range Comments APPEARANCE FLUID (BEAKER) (test ljmb=659) Clear Clear COLOR FLUID (BEAKER) (test gqan=161) Yellow Colorless, Straw RBC FLUID (BEAKER) (test ncdb=856) 10 /cu mm <=1 ADJUSTED WBC FLUID (BEAKER) (test xmla=6104) 80 /cu mm <=5 LINING CELLS (BEAKER) (test xybz=2968) 0 /cu mm <=1 NEUTROPHILS FLUID (BEAKER) (test qjgr=7732) 5 % LYMPHS FLUID (BEAKER) (test jemw=499) 35 % MONO/MACROPHAGE FLUID (BEAKER) (test uycg=090) 59 % EOSINOPHILS FLUID (BEAKER) (test iyxk=644) 1 % BASO FLUID (BEAKER) (test cjys=634) 0 % CONTAINER BODY FLUID (BEAKER) (test qbdb=3611) EDTA Tube BASIC METABOLIC [id number] 07:28:00 Test Item Value Reference Range Comments SODIUM (BEAKER) (test 134 meq/L 136-145 ibzk=753) POTASSIUM (BEAKER) (test 5.0 meq/L 3.5-5.1 andy=302) CHLORIDE (BEAKER) (test 107 meq/L 98-107 jvxx=663) CO2 (BEAKER) (test 22 meq/L 22-29 ltvp=204) BLOOD UREA NITROGEN 46 mg/dL 7-21 (BEAKER) (test mivy=682) CREATININE (BEAKER) (test 1.61 mg/dL 0.57-1.25 mjai=587) GLUCOSE RANDOM (BEAKER) 220 mg/dL 70-105 (test ywqi=234) CALCIUM (BEAKER) (test 9.0 mg/dL 8.4-10.2 udoj=413) EGFR (BEAKER) (test 33 mL/min/1.73 sq m ESTIMATED GFR IS NOT jqxq=2916) ACCURATE CREATININE CLEARANCE IN PREDICTING GLOMERULAR FILTRATION RATE. ESTIMATED GFR IS NOT APPLICABLE FOR DIALYSIS PATIENTS. HEPATIC FUNCTION [id number] 07:28:00 Test Item Value Reference Range Comments TOTAL PROTEIN (BEAKER) (test kshz=201) 5.9 gm/dL 6.0-8.3 ALBUMIN (BEAKER) (test tkwh=8949) 3.0 g/dL 3.5-5.0 BILIRUBIN TOTAL (BEAKER) (test ggnr=747) 0.6 mg/dL 0.2-1.2 BILIRUBIN DIRECT (BEAKER) (test svca=044) 0.3 mg/dL 0.1-0.5 ALKALINE PHOSPHATASE (BEAKER) (test ojix=545) 154 U/L 40-150 AST (SGOT) (BEAKER) (test hfzn=712) 22 U/L 5-34 ALT (SGPT) (BEAKER) (test deqk=331) 12 U/L 6-55 [id number] 07:27:00 Test Item Value Reference Range Comments MAGNESIUM (BEAKER) (test xcie=642) 2.2 mg/dL 1.6-2.6 CBC W/PLT COUNT & AUTO [id number] 07:06:00 Test Item Value Reference Range Comments WHITE BLOOD CELL COUNT (BEAKER) (test lodz=010) 6.2 K/ L 3.5-10.5 RED BLOOD CELL COUNT (BEAKER) (test njjp=772) 3.62 M/ L 3.93-5.22 HEMOGLOBIN (BEAKER) (test zutk=272) 9.8 GM/DL 11.2-15.7 HEMATOCRIT (BEAKER) (test lyoh=710) 31.4 % 34.1-44.9 MEAN CORPUSCULAR VOLUME (BEAKER) (test sfgt=857) 86.7 fL 79.4-94.8 MEAN CORPUSCULAR HEMOGLOBIN (BEAKER) (test 27.1 pg 25.6-32.2 tdiw=186) MEAN CORPUSCULAR HEMOGLOBIN CONC (BEAKER) (test 31.2 GM/DL 32.2-35.5 sfxh=963) RED CELL DISTRIBUTION WIDTH (BEAKER) (test 14.5 % 11.7-14.4 rxyq=456) PLATELET COUNT (BEAKER) (test ibgz=117) 198 K/CU MM 150-450 MEAN PLATELET VOLUME (BEAKER) (test hykm=540) 9.8 fL 9.4-12.3 NUCLEATED RED BLOOD CELLS (BEAKER) (test 0 /100 WBC 0-0 nnii=999) NEUTROPHILS RELATIVE PERCENT (BEAKER) (test 64 % irpk=640) LYMPHOCYTES RELATIVE PERCENT (BEAKER) (test 22 % rgis=477) MONOCYTES RELATIVE PERCENT (BEAKER) (test 9 % xzos=547) EOSINOPHILS RELATIVE PERCENT (BEAKER) (test 5 % wftu=563) BASOPHILS RELATIVE PERCENT (BEAKER) (test 1 % pbtk=348) NEUTROPHILS ABSOLUTE COUNT (BEAKER) (test 3.93 K/ L 1.56-6.13 vhkk=618) LYMPHOCYTES ABSOLUTE COUNT (BEAKER) (test 1.35 K/ L 1.18-3.74 usvm=873) MONOCYTES ABSOLUTE COUNT (BEAKER) (test 0.53 K/ L 0.24-0.36 saxb=307) EOSINOPHILS ABSOLUTE COUNT (BEAKER) (test 0.28 K/ L 0.04-0.36 bend=543) BASOPHILS ABSOLUTE COUNT (BEAKER) (test 0.05 K/ L 0.01-0.08 btsd=897) IMMATURE GRANULOCYTES-RELATIVE PERCENT (BEAKER) 1 % 0-1 (test dnlb=6263) [id number] 06:49:00 Test Item Value Reference Range Comments PROTIME (BEAKER) (test djuj=159) 13.4 seconds 11.7-14.7 INR (BEAKER) (test tkfq=994) 1.0 <=5.9 PARTIAL THROMBOPLASTIN TIME (BEAKER) (test 30.9 seconds 22.5-36.0 loui=346) RECOMMENDED COUMADIN/WARFARIN INR THERAPY RANGESSTANDARD DOSE: 2.0 - 3.0 Includes: PROPHYLAXIS forvenous thrombosis, systemic embolization; TREATMENT for venous thrombosis and/or pulmonary embolus.HIGH RISK: Target INR is 2.5-3.5 for patients with mechanical heart valves.URINALYSIS W/ REFLEX URINE [id number] 05:32:00 Test Item Value Reference Range Comments COLOR (BEAKER) (test zioa=027) Yellow CLARITY (BEAKER) (test jnfq=603) Hazy SPECIFIC GRAVITY UA (BEAKER) (test evrd=463) 1.021 1.001-1.035 PH UA (BEAKER) (test uoxp=743) 5.5 5.0-8.0 PROTEIN UA (BEAKER) (test cqus=299) 30 mg/dL Negative GLUCOSE UA (BEAKER) (test bnpe=320) Negative Negative KETONES UA (BEAKER) (test nqhi=266) Negative Negative BILIRUBIN UA (BEAKER) (test osmz=899) Negative Negative BLOOD UA (BEAKER) (test jlnc=141) Negative Negative NITRITE UA (BEAKER) (test amlo=044) Negative Negative LEUKOCYTE ESTERASE UA (BEAKER) (test kfuw=749) Large Negative UROBILINOGEN UA (BEAKER) (test husd=549) 2.0 mg/dL 0.2-1.0 RBC UA (BEAKER) (test frbk=417) 7 /HPF WBC UA (BEAKER) (test deis=614) 7 /HPF MUCUS (BEAKER) (test uwjf=8602) Rare SQUAMOUS EPITHELIAL (BEAKER) (test gmqa=200) 6 /HPF HYALINE CASTS (BEAKER) (test vvoj=319) 40 /LPF SOURCE(BEAKER) (test txkl=7185) POCT-GLUCOSE [id number] 05:00:00 Test Item Value Reference Range Comments POC-GLUCOSE METER (BEAKER) 227 mg/dL 70-110 TESTED AT [facility] [address] [facility] (test gbal=5867) [facility] [address] ALPHA FETOPROTEIN (AFP), TUMOR [id number] 15:55:00 Test Item Value Reference Range Comments ALPHA-FETOPROTEIN (BEAKER) (test texk=2020) 3.4 ng/mL <10.0 BASIC METABOLIC [id number] 15:40:00 Test Item Value Reference Range Comments SODIUM (BEAKER) (test 133 meq/L 136-145 jddq=433) POTASSIUM (BEAKER) (test 4.8 meq/L 3.5-5.1 sctx=516) CHLORIDE (BEAKER) (test 101 meq/L 98-107 qkmt=284) CO2 (BEAKER) (test 23 meq/L 22-29 uqyz=843) BLOOD UREA NITROGEN 37 mg/dL 7-21 (BEAKER) (test nzqj=338) CREATININE (BEAKER) (test 2.17 mg/dL 0.57-1.25 vpbx=569) GLUCOSE RANDOM (BEAKER) 191 mg/dL 70-105 (test amtj=224) CALCIUM (BEAKER) (test 9.2 mg/dL 8.4-10.2 srka=314) EGFR (BEAKER) (test 23 mL/min/1.73 sq m ESTIMATED GFR IS NOT jjbe=9982) ACCURATE CREATININE CLEARANCE IN PREDICTING GLOMERULAR FILTRATION RATE. ESTIMATED GFR IS NOT APPLICABLE FOR DIALYSIS PATIENTS. HEPATIC FUNCTION [id number] 15:38:00 Test Item Value Reference Range Comments TOTAL PROTEIN (BEAKER) (test kuhz=841) 6.9 gm/dL 6.0-8.3 ALBUMIN (BEAKER) (test dbfq=4224) 3.7 g/dL 3.5-5.0 BILIRUBIN TOTAL (BEAKER) (test yzbf=340) 0.8 mg/dL 0.2-1.2 BILIRUBIN DIRECT (BEAKER) (test ysok=557) 0.3 mg/dL 0.1-0.5 ALKALINE PHOSPHATASE (BEAKER) (test ixlv=671) 95 U/L 40-150 AST (SGOT) (BEAKER) (test uaia=372) 24 U/L 5-34 ALT (SGPT) (BEAKER) (test gxnn=291) 14 U/L 6-55 PROTHROMBIN TIME/[id number] 15:29:00 Test Item Value Reference Range Comments PROTIME (BEAKER) (test wnkt=863) 12.8 seconds 11.7-14.7 INR (BEAKER) (test yfeh=792) 1.0 <=5.9 RECOMMENDED COUMADIN/WARFARIN INR THERAPY RANGESSTANDARD DOSE: 2.0 - 3.0 Includes: PROPHYLAXIS forvenous thrombosis, systemic embolization; TREATMENT for venous thrombosis and/or pulmonary embolus.HIGH RISK: Target INR is 2.5-3.5 for patients with mechanical heart valves.CBC W/PLT COUNT & AUTO [id number] 15:17:00 Test Item Value Reference Range Comments WHITE BLOOD CELL COUNT (BEAKER) (test rdgz=951) 7.8 K/ L 3.5-10.5 RED BLOOD CELL COUNT (BEAKER) (test vihx=257) 4.49 M/ L 3.93-5.22 HEMOGLOBIN (BEAKER) (test vuak=458) 12.4 GM/DL 11.2-15.7 HEMATOCRIT (BEAKER) (test tfrg=783) 39.1 % 34.1-44.9 MEAN CORPUSCULAR VOLUME (BEAKER) (test bign=915) 87.1 fL 79.4-94.8 MEAN CORPUSCULAR HEMOGLOBIN (BEAKER) (test 27.6 pg 25.6-32.2 eqcf=805) MEAN CORPUSCULAR HEMOGLOBIN CONC (BEAKER) (test 31.7 GM/DL 32.2-35.5 yadx=444) RED CELL DISTRIBUTION WIDTH (BEAKER) (test 14.0 % 11.7-14.4 znxg=265) PLATELET COUNT (BEAKER) (test hbbx=187) 196 K/CU MM 150-450 MEAN PLATELET VOLUME (BEAKER) (test xifv=050) 9.9 fL 9.4-12.3 NUCLEATED RED BLOOD CELLS (BEAKER) (test 0 /100 WBC 0-0 hchd=619) NEUTROPHILS RELATIVE PERCENT (BEAKER) (test 72 % rdxm=942) LYMPHOCYTES RELATIVE PERCENT (BEAKER) (test 18 % mlym=179) MONOCYTES RELATIVE PERCENT (BEAKER) (test 6 % yvuj=858) EOSINOPHILS RELATIVE PERCENT (BEAKER) (test 4 % dxua=432) BASOPHILS RELATIVE PERCENT (BEAKER) (test 1 % ubng=085) NEUTROPHILS ABSOLUTE COUNT (BEAKER) (test 5.62 K/ L 1.56-6.13 lwlt=901) LYMPHOCYTES ABSOLUTE COUNT (BEAKER) (test 1.37 K/ L 1.18-3.74 yzgn=408) MONOCYTES ABSOLUTE COUNT (BEAKER) (test 0.43 K/ L 0.24-0.36 dhbb=505) EOSINOPHILS ABSOLUTE COUNT (BEAKER) (test 0.28 K/ L 0.04-0.36 dydi=236) BASOPHILS ABSOLUTE COUNT (BEAKER) (test 0.07 K/ L 0.01-0.08 bdlp=158) IMMATURE GRANULOCYTES-RELATIVE PERCENT (BEAKER) 0 % 0-1 (test kmic=4575) ANTI-MITOCHONDRIAL AB, REFLEX TO [id number] 08:36:00 Test Item Value Reference Range Comments SCAN RESULT (test twps=[id number]) OSMOLALITY, [id number] 10:30:00 Test Item Value Reference Range Comments OSMOLALITY, SERUM (BEAKER) (test hyjj=074) 301 mOsm/kg 275-295 POCT-GLUCOSE [id number] 08:26:00 Test Item Value Reference Range Comments POC-GLUCOSE METER (BEAKER) 243 mg/dL 70-110 TESTED AT [address] (test jooz=6931) [facility] [address] COMPREHENSIVE METABOLIC [id number] 08:05:00 Test Item Value Reference Range Comments TOTAL PROTEIN (BEAKER) 5.5 gm/dL 6.0-8.3 (test ydto=910) ALBUMIN (BEAKER) (test 3.2 g/dL 3.5-5.0 pjam=9756) ALKALINE PHOSPHATASE 75 U/L 40-150 (BEAKER) (test fpxc=135) BILIRUBIN TOTAL (BEAKER) 0.9 mg/dL 0.2-1.2 (test zejm=838) SODIUM (BEAKER) (test 132 meq/L 136-145 ibbe=890) POTASSIUM (BEAKER) (test 4.3 meq/L 3.5-5.1 tjxd=767) CHLORIDE (BEAKER) (test 101 meq/L 98-107 ulgy=186) CO2 (BEAKER) (test 25 meq/L 22-29 muxh=749) BLOOD UREA NITROGEN 45 mg/dL 7-21 (BEAKER) (test xcis=103) CREATININE (BEAKER) (test 1.89 mg/dL 0.57-1.25 ihcf=203) GLUCOSE RANDOM (BEAKER) 241 mg/dL 70-105 (test hzxt=241) CALCIUM (BEAKER) (test 8.6 mg/dL 8.4-10.2 seip=842) AST (SGOT) (BEAKER) (test 19 U/L 5-34 loiy=552) ALT (SGPT) (BEAKER) (test 10 U/L 6-55 uaym=147) EGFR (BEAKER) (test 27 mL/min/1.73 sq m ESTIMATED GFR IS NOT slsr=6945) ACCURATE CREATININE CLEARANCE IN PREDICTING GLOMERULAR FILTRATION RATE. ESTIMATED GFR IS NOT APPLICABLE FOR DIALYSIS PATIENTS. [id number] 08:02:00 Test Item Value Reference Range Comments PHOSPHORUS (BEAKER) (test ixjp=686) 3.6 mg/dL 2.3-4.7 [id number] 08:02:00 Test Item Value Reference Range Comments MAGNESIUM (BEAKER) (test quij=553) 2.0 mg/dL 1.6-2.6 CBC W/PLT COUNT & AUTO [id number] 05:40:00 Test Item Value Reference Range Comments WHITE BLOOD CELL COUNT (BEAKER) (test kdom=005) 5.7 K/ L 3.5-10.5 RED BLOOD CELL COUNT (BEAKER) (test zrwe=760) 3.76 M/ L 3.93-5.22 HEMOGLOBIN (BEAKER) (test vnua=417) 10.6 GM/DL 11.2-15.7 HEMATOCRIT (BEAKER) (test vuok=074) 32.9 % 34.1-44.9 MEAN CORPUSCULAR VOLUME (BEAKER) (test qzzm=649) 87.5 fL 79.4-94.8 MEAN CORPUSCULAR HEMOGLOBIN (BEAKER) (test 28.2 pg 25.6-32.2 ptqz=871) MEAN CORPUSCULAR HEMOGLOBIN CONC (BEAKER) (test 32.2 GM/DL 32.2-35.5 jqxo=070) RED CELL DISTRIBUTION WIDTH (BEAKER) (test 14.2 % 11.7-14.4 oeug=541) PLATELET COUNT (BEAKER) (test ewqt=017) 142 K/CU MM 150-450 MEAN PLATELET VOLUME (BEAKER) (test sllj=377) 9.8 fL 9.4-12.3 NUCLEATED RED BLOOD CELLS (BEAKER) (test 0 /100 WBC 0-0 gnoe=039) NEUTROPHILS RELATIVE PERCENT (BEAKER) (test 70 % mclf=223) LYMPHOCYTES RELATIVE PERCENT (BEAKER) (test 19 % ygqb=197) MONOCYTES RELATIVE PERCENT (BEAKER) (test 7 % pkcf=393) EOSINOPHILS RELATIVE PERCENT (BEAKER) (test 3 % eglk=943) BASOPHILS RELATIVE PERCENT (BEAKER) (test 1 % rjhj=975) NEUTROPHILS ABSOLUTE COUNT (BEAKER) (test 3.99 K/ L 1.56-6.13 pzom=733) LYMPHOCYTES ABSOLUTE COUNT (BEAKER) (test 1.05 K/ L 1.18-3.74 pqpi=770) MONOCYTES ABSOLUTE COUNT (BEAKER) (test 0.40 K/ L 0.24-0.36 tlxz=006) EOSINOPHILS ABSOLUTE COUNT (BEAKER) (test 0.16 K/ L 0.04-0.36 fbvo=983) BASOPHILS ABSOLUTE COUNT (BEAKER) (test 0.04 K/ L 0.01-0.08 uflu=436) IMMATURE GRANULOCYTES-RELATIVE PERCENT (BEAKER) 0 % 0-1 (test ixtx=0305) CALCIUM, [id number] 05:17:00 Test Item Value Reference Range Comments CALCIUM IONIZED (BEAKER) (test scxe=707) 1.06 mmol/L 1.12-1.27 PH, BLOOD (BEAKER) (test bzdt=1729) 7.41 U/S, RENAL, [id number] 03:59:00Reason for exam:->HEMALATHA/CKDShould this be performed at [...] Wilson Verified Date/Time: 11/24/2018 03:59:04 Reading Location: [address] Transitional Reading Room TROPONIN [id number] 23:19:00 Test Item Value Reference Range Comments TROPONIN I (BEAKER) (test hkdd=925) < ng/mL 0.00-0.03 Troponin I (TnI) levels [...] acidosis, acute neurological disease, and persistent tachyarrhythmia.POCT-GLUCOSE [id number] 21:12:00 Test Item Value Reference Range Comments POC-GLUCOSE METER (BEAKER) 277 mg/dL 70-110 TESTED AT [address] (test ytlw=2150) [facility] [address] PROTEIN, RANDOM [id number] 20:11:00 Test Item Value Reference Range Comments PROTEIN, URINE (BEAKER) (test extm=8505) 10 mg/dL 0-14 SODIUM, RANDOM [id number] 20:05:00 Test Item Value Reference Range Comments SODIUM URINE (BEAKER) (test hkkx=166) < meq/L Reference Range: No NormalsPOCT-GLUCOSE [id number] 17:28:00 Test Item Value Reference Range Comments POC-GLUCOSE METER (BEAKER) 291 mg/dL 70-110 TESTED AT [address] (test qwgl=0261) [facility] [address] POCT-GLUCOSE [id number] 14:02:00 Test Item Value Reference Range Comments POC-GLUCOSE METER (BEAKER) 148 mg/dL 70-110 TESTED AT [facility] [address] [facility] (test tiih=2248) [facility] [address] URINALYSIS W/ [id number] 13:32:00 Test Item Value Reference Range Comments COLOR (BEAKER) (test tdmp=710) Yellow CLARITY (BEAKER) (test snax=726) Clear SPECIFIC GRAVITY UA (BEAKER) (test 1.015 1.001-1.035 ugia=523) PH UA (BEAKER) (test bfre=054) 5.0 5.0-8.0 PROTEIN UA (BEAKER) (test cwaf=359) Negative Negative GLUCOSE UA (BEAKER) (test itld=138) Negative Negative KETONES UA (BEAKER) (test dzfs=394) Negative Negative BILIRUBIN UA (BEAKER) (test polf=252) Negative Negative BLOOD UA (BEAKER) (test pmho=674) Negative Negative NITRITE UA (BEAKER) (test hqgk=462) Negative Negative LEUKOCYTE ESTERASE UA (BEAKER) (test Negative Negative kszb=430) UROBILINOGEN UA (BEAKER) (test hpdd=897) 0.2 mg/dL 0.2-1.0 RBC UA (BEAKER) (test xjco=267) < /HPF WBC UA (BEAKER) (test umtv=538) 2 /HPF BACTERIA (BEAKER) (test qfkw=996) Occasional SQUAMOUS EPITHELIAL (BEAKER) (test 19 /HPF vqgc=652) HYALINE CASTS (BEAKER) (test tqeh=935) 5 /LPF AMORPHOUS CRYSTALS (BEAKER) (test Occasional pvqu=8274) SOURCE(BEAKER) (test xrlt=5210) Urine, Clean Catch U/S, ABDOMINAL, [id number] 13:29:00Abdomen limited area? Add comment if clarification [...] deep structures of the abdomen. Signed: Dilip Valels Verified Date/Time: 11/23/2018 13:29:13 Reading Location: [address] Transitional Reading Room U/S, [id number] 13:01:00Reason for exam:->Therapeutic paracentesisFINAL REPORT Paracentesis dated 11/23/2018 Procedure: Ultrasound-guided paracentesis. Preprocedure diagnosis: Ascites Postprocedure diagnosis: Ascites Conscious sedation: None. Radiologist: Giovanni Haas M.D. Improvement Manager: None Anesthesia: 1% Xylocaine mixed with sodium bicarbonate local anesthesia. Technique: After obtaining informed consent, ultrasound-guided paracentesis was performed under usual sterile technique. Using a 5 sami drainage catheter , puncture was made in the right lower quadrant abdomen. Approximately 16,200 cc of serous fluid was removed. Patient tolerated the procedure well without complication. Complication: None Graft/Implant: None Estimated Blood Loss: None Impression: Ultrasound-guided paracentesis. Signed: Giovanni Haas Verified Date/Time: 11/23/2018 13:01:25 Reading Location: [facility] [id number] Ortho Consult Reading Room Electronically signedby: GIOVANNI HAAS M.D. on 2018 01:01 PMCBC W/PLT COUNT & AUTO [id number] 08:55:00 Test Item Value Reference Range Comments WHITE BLOOD CELL COUNT (BEAKER) (test ijvf=704) 5.7 K/ L 3.5-10.5 RED BLOOD CELL COUNT (BEAKER) (test grfs=541) 3.72 M/ L 3.93-5.22 HEMOGLOBIN (BEAKER) (test yshh=070) 10.5 GM/DL 11.2-15.7 HEMATOCRIT (BEAKER) (test ksjl=932) 32.5 % 34.1-44.9 MEAN CORPUSCULAR VOLUME (BEAKER) (test akjr=028) 87.4 fL 79.4-94.8 MEAN CORPUSCULAR HEMOGLOBIN (BEAKER) (test 28.2 pg 25.6-32.2 aasd=509) MEAN CORPUSCULAR HEMOGLOBIN CONC (BEAKER) (test 32.3 GM/DL 32.2-35.5 fvlw=649) RED CELL DISTRIBUTION WIDTH (BEAKER) (test 14.5 % 11.7-14.4 jwue=619) PLATELET COUNT (BEAKER) (test wshu=969) 148 K/CU MM 150-450 MEAN PLATELET VOLUME (BEAKER) (test qmme=248) 9.4 fL 9.4-12.3 NUCLEATED RED BLOOD CELLS (BEAKER) (test 0 /100 WBC 0-0 lity=976) NEUTROPHILS RELATIVE PERCENT (BEAKER) (test 63 % bbya=056) LYMPHOCYTES RELATIVE PERCENT (BEAKER) (test 23 % dncw=527) MONOCYTES RELATIVE PERCENT (BEAKER) (test 8 % bemb=848) EOSINOPHILS RELATIVE PERCENT (BEAKER) (test 5 % fefr=003) BASOPHILS RELATIVE PERCENT (BEAKER) (test 1 % umxz=738) NEUTROPHILS ABSOLUTE COUNT (BEAKER) (test 3.61 K/ L 1.56-6.13 nsbf=380) LYMPHOCYTES ABSOLUTE COUNT (BEAKER) (test 1.29 K/ L 1.18-3.74 juic=352) MONOCYTES ABSOLUTE COUNT (BEAKER) (test 0.47 K/ L 0.24-0.36 sqet=792) EOSINOPHILS ABSOLUTE COUNT (BEAKER) (test 0.28 K/ L 0.04-0.36 qnpa=442) BASOPHILS ABSOLUTE COUNT (BEAKER) (test 0.05 K/ L 0.01-0.08 rler=970) IMMATURE GRANULOCYTES-RELATIVE PERCENT (BEAKER) 0 % 0-1 (test jewm=3970) POCT-GLUCOSE [id number] 07:43:00 Test Item Value Reference Range Comments POC-GLUCOSE METER (BEAKER) 196 mg/dL 70-110 TESTED AT [facility] [address] [facility] (test otjk=4188) [facility] [address] [id number] 06:53:00 Test Item Value Reference Range Comments FERRITIN (BEAKER) (test bxsu=262) 52 ng/mL 5-275 HEPATITIS B [id number] 06:21:00 Test Item Value Reference Range Comments HEPATITIS B CORE TOTAL ANTIBODY (BEAKER) (test Nonreactive Nonreactive xeyf=975) HEPATITIS B SURFACE ANTIBODY (BEAKER) (test < mIU/mL <8.0 enrd=508) HEPATITIS B SURFACE ANTIGEN (2) (BEAKER) (test Nonreactive Nonreactive upql=0862) HEPATITIS C [id number] 06:20:00 Test Item Value Reference Range Comments HEPATITIS C ANTIBODY (BEAKER) (test rkgj=299) Nonreactive Nonreactive HEPATITIS A [id number] 06:20:00 Test Item Value Reference Range Comments HEPATITIS A IGM ANTIBODY (BEAKER) (test Nonreactive Nonreactive phnr=798) HEPATITIS A IGG ANTIBODY (BEAKER) (test Nonreactive Nonreactive vumb=2838) ALPHA FETOPROTEIN (AFP), TUMOR [id number] 06:14:00 Test Item Value Reference Range Comments ALPHA-FETOPROTEIN (BEAKER) (test lczx=2347) 2.1 ng/mL <10.0 COMPREHENSIVE METABOLIC [id number] 06:01:00 Test Item Value Reference Range Comments TOTAL PROTEIN (BEAKER) 5.9 gm/dL 6.0-8.3 (test ivgm=741) ALBUMIN (BEAKER) (test 2.9 g/dL 3.5-5.0 sgnm=5601) ALKALINE PHOSPHATASE 96 U/L 40-150 (BEAKER) (test lwwg=857) BILIRUBIN TOTAL (BEAKER) 0.5 mg/dL 0.2-1.2 (test vois=291) SODIUM (BEAKER) (test 132 meq/L 136-145 slsy=313) POTASSIUM (BEAKER) (test 4.3 meq/L 3.5-5.1 mbzp=331) CHLORIDE (BEAKER) (test 100 meq/L 98-107 jubv=650) CO2 (BEAKER) (test 26 meq/L 22-29 zxop=978) BLOOD UREA NITROGEN 50 mg/dL 7-21 (BEAKER) (test qwpv=344) CREATININE (BEAKER) (test 2.27 mg/dL 0.57-1.25 fjmt=162) GLUCOSE RANDOM (BEAKER) 219 mg/dL 70-105 (test dxbn=996) CALCIUM (BEAKER) (test 8.8 mg/dL 8.4-10.2 dnpl=582) AST (SGOT) (BEAKER) (test 22 U/L 5-34 oics=947) ALT (SGPT) (BEAKER) (test 15 U/L 6-55 bjue=867) EGFR (BEAKER) (test 22 mL/min/1.73 sq m ESTIMATED GFR IS NOT kzwj=6845) ACCURATE CREATININE CLEARANCE IN PREDICTING GLOMERULAR FILTRATION RATE. ESTIMATED GFR IS NOT APPLICABLE FOR DIALYSIS PATIENTS. IRON, TIBC, % SAT. (WITHOUT FERRITIN)2018-11-23 05:55:00 Test Item Value Reference Range Comments IRON (BEAKER) (test tfrm=042) 46.0 ug/dL 40.0-160.0 TOTAL IRON BINDING CAPACITY (BEAKER) (test 269 ug/dL 250-450 quyi=117) IRON % SATURATION (2) (BEAKER) (test fsso=8381) 17 % 20-55 [id number] 05:54:00 Test Item Value Reference Range Comments ALPHA-1 ANTITRYPSIN (BEAKER) (test qnno=222) 202.70 mg/dL 90.00-200.00 COMPREHENSIVE METABOLIC [id number] 00:16:00 Test Item Value Reference Range Comments TOTAL PROTEIN (BEAKER) 6.8 gm/dL 6.0-8.3 (test joho=173) ALBUMIN (BEAKER) (test 3.3 g/dL 3.5-5.0 yyhb=2330) ALKALINE PHOSPHATASE 114 U/L 40-150 (BEAKER) (test zcun=285) BILIRUBIN TOTAL (BEAKER) 0.6 mg/dL 0.2-1.2 (test kfjw=575) SODIUM (BEAKER) (test 130 meq/L 136-145 zwnt=748) POTASSIUM (BEAKER) (test 4.4 meq/L 3.5-5.1 hbrz=373) CHLORIDE (BEAKER) (test 99 meq/L 98-107 oceo=413) CO2 (BEAKER) (test 22 meq/L 22-29 baln=287) BLOOD UREA NITROGEN 46 mg/dL 7-21 (BEAKER) (test tcuk=364) CREATININE (BEAKER) (test 2.40 mg/dL 0.57-1.25 avnk=225) GLUCOSE RANDOM (BEAKER) 153 mg/dL 70-105 (test jkxh=966) CALCIUM (BEAKER) (test 9.1 mg/dL 8.4-10.2 icew=075) AST (SGOT) (BEAKER) (test 25 U/L 5-34 awgw=757) ALT (SGPT) (BEAKER) (test 17 U/L 6-55 obuz=796) EGFR (BEAKER) (test 21 mL/min/1.73 sq m ESTIMATED GFR IS NOT caqn=1289) ACCURATE CREATININE CLEARANCE IN PREDICTING GLOMERULAR FILTRATION RATE. ESTIMATED GFR IS NOT APPLICABLE FOR DIALYSIS PATIENTS. [id number] 23:52:00 Test Item Value Reference Range Comments PROTIME (BEAKER) (test zzks=069) 13.3 seconds 11.7-14.7 INR (BEAKER) (test cpsv=474) 1.0 <=5.9 PARTIAL THROMBOPLASTIN TIME (BEAKER) (test 26.9 seconds 22.5-36.0 rkmo=657) RECOMMENDED COUMADIN/WARFARIN INR THERAPY RANGESSTANDARD DOSE: 2.0 - 3.0 Includes: PROPHYLAXIS forvenous thrombosis, systemic embolization; TREATMENT for venous thrombosis and/or pulmonary embolus.HIGH RISK: Target INR is 2.5-3.5 for patients with mechanical heart valves.POCT-GLUCOSE [id number] 21:25:00 Test Item Value Reference Range Comments POC-GLUCOSE METER (BEAKER) 178 mg/dL 70-110 TESTED AT [facility] [address] [facility] (test bndc=5495) [facility] [address]
[2019-10-06 08:31] VITALS: BMI 46.3
--- NOTE | 2019-10-06 10:50 | RAD REPORT ---
EXAM DESCRIPTION: US - Paracentesis Proc Guidance - 10/06/2019 10:23 am CLINICAL HISTORY: ASCITES Ascites COMPARISON: Paracentesis Proc Guidance dated 09/25/2019 FINDINGS: Informed consent was obtained and time-out was performed. Patient's abdomen was prepped and draped in the usual sterile fashion. 1% lidocaine was used for loca l anesthetic purposes. A small skin incision was made left side of the abdomen. A paracentesis catheter was guided into the peroneal cavity under sonographic guidance. A small amount of fluid was sent for requested lab studies. A large volume paracentesis was performed . The patient tolerated the procedure well. Patient was administered IV albumin per protocol following the procedure. IMPRESSION: Successful ultrasound-guided paracentesis.
[2019-10-06 11:21] LABS: Body Fluid WBC 128 /mm^3
[2019-10-06 11:44] VITALS: BP 108/33; TEMP 97.9; O2SAT 95
[2019-10-06 12:45] LABS: Appearance CLEAR (CLEAR); Body Fluid Source PERITONEAL; Color of fluid Yellow (COLORLESS)
== END ==
LOC: DS 08:00
PROVIDERS: ATTEND Internal Medicine Hepatology
DX: R18.8 Other ascites (principal)
CPT/HCPCS: 36415; 89050; 82565; 96365; 49083; P9047

== ENCOUNTER → 2019-10-14 | Day surgery (SDC) | payer OTHER ==
--- OUTSIDE RECORDS SUMMARY | 2019-10-14 09:10 | XMS REPORT ---
:1960 [facility] Organization [facility] Address [address] [place] [address] Dr. Melton [address] [place] [id number] Care Team Providers Name Role Phone DANIEL [...] Reference Range Comments TOTAL PROTEIN (BEAKER) (test rqew=795) 6.5 gm/dL 6.0-8.3 ALBUMIN (BEAKER) (test oack=7972) 3.0 g/dL 3.5-5.0 BILIRUBIN TOTAL (BEAKER) (test zgcq=017) 1.5 mg/dL 0.2-1.2 BILIRUBIN DIRECT (BEAKER) (test zbfm=286) 0.7 mg/dL 0.1-0.5 ALKALINE PHOSPHATASE (BEAKER) (test czrh=290) 120 U/L 40-150 AST (SGOT) (BEAKER) (test frpn=318) 34 U/L 5-34 ALT (SGPT) (BEAKER) (test stvl=968) 21 U/L 6-55 BASIC METABOLIC [id number] 15:39:00 Test Item Value Reference Range Comments SODIUM (BEAKER) (test 135 meq/L 136-145 jjnu=988) POTASSIUM (BEAKER) (test 3.8 meq/L 3.5-5.1 wdcn=763) CHLORIDE (BEAKER) (test 99 meq/L 98-107 ixzi=747) CO2 (BEAKER) (test 31 meq/L 22-29 qkmq=577) BLOOD UREA NITROGEN 21 mg/dL 7-21 (BEAKER) (test geyc=676) CREATININE (BEAKER) (test 1.70 mg/dL 0.57-1.25 ipct=529) GLUCOSE RANDOM (BEAKER) 290 mg/dL 70-105 (test pygj=028) CALCIUM (BEAKER) (test 8.4 mg/dL 8.4-10.2 avse=045) EGFR (BEAKER) (test 31 mL/min/1.73 sq m ESTIMATED GFR IS NOT uoyh=5381) ACCURATE CREATININE CLEARANCE IN PREDICTING GLOMERULAR FILTRATION RATE. ESTIMATED GFR IS NOT APPLICABLE FOR DIALYSIS PATIENTS. PROTHROMBIN [id number] 15:39:00 Test Item Value Reference Range Comments PROTIME (BEAKER) (test vjcr=347) 14.2 seconds 11.9-14.2 INR (BEAKER) (test ekcp=054) 1.2 <=5.9 Effective 04/01/2019: PT Reference Range ChangeNew: 11.9-14.2 Previous: 11.7- 14.7RECOMMENDED COUMADIN/WARFARIN INR THERAPY RANGESSTANDARD DOSE: 2.0-3.0 Includes: PROPHYLAXIS for venous thrombosis, systemic embolization; TREATMENT for venous thrombosis and/or pulmonary embolus.HIGH RISK: Target INR is2.5-3.5 for patients wiht mechanical heart valves.CBC W/PLT COUNT & AUTO [id number] 15:25:00 Test Item Value Reference Range Comments WHITE BLOOD CELL COUNT (BEAKER) (test prgm=991) 5.8 K/ L 3.5-10.5 RED BLOOD CELL COUNT (BEAKER) (test otux=632) 3.30 M/ L 3.93-5.22 HEMOGLOBIN (BEAKER) (test bbro=773) 8.9 GM/DL 11.2-15.7 HEMATOCRIT (BEAKER) (test gyke=832) 28.2 % 34.1-44.9 MEAN CORPUSCULAR VOLUME (BEAKER) (test ifog=348) 85.5 fL 79.4-94.8 MEAN CORPUSCULAR HEMOGLOBIN (BEAKER) (test 27.0 pg 25.6-32.2 ttmp=275) MEAN CORPUSCULAR HEMOGLOBIN CONC (BEAKER) (test 31.6 GM/DL 32.2-35.5 xier=590) RED CELL DISTRIBUTION WIDTH (BEAKER) (test 16.6 % 11.7-14.4 vebm=251) PLATELET COUNT (BEAKER) (test hujt=158) 185 K/CU MM 150-450 MEAN PLATELET VOLUME (BEAKER) (test dlrv=257) 9.0 fL 9.4-12.3 NUCLEATED RED BLOOD CELLS (BEAKER) (test 0 /100 WBC 0-0 cdwc=013) NEUTROPHILS RELATIVE PERCENT (BEAKER) (test 50 % rgnn=754) LYMPHOCYTES RELATIVE PERCENT (BEAKER) (test 32 % rvhl=538) MONOCYTES RELATIVE PERCENT (BEAKER) (test 7 % bqyb=314) EOSINOPHILS RELATIVE PERCENT (BEAKER) (test 10 % qlzr=654) BASOPHILS RELATIVE PERCENT (BEAKER) (test 2 % vycd=330) NEUTROPHILS ABSOLUTE COUNT (BEAKER) (test 2.88 K/ L 1.56-6.13 fsyv=300) LYMPHOCYTES ABSOLUTE COUNT (BEAKER) (test 1.86 K/ L 1.18-3.74 eomk=949) MONOCYTES ABSOLUTE COUNT (BEAKER) (test 0.38 K/ L 0.24-0.36 uldf=807) EOSINOPHILS ABSOLUTE COUNT (BEAKER) (test 0.55 K/ L 0.04-0.36 msdz=434) BASOPHILS ABSOLUTE COUNT (BEAKER) (test 0.10 K/ L 0.01-0.08 vict=338) IMMATURE GRANULOCYTES-RELATIVE PERCENT (BEAKER) 0 % 0-1 (test nole=6112) PROTHROMBIN TIME/[id number] 17:20:00 Test Item Value Reference Range Comments PROTIME (BEAKER) (test nsjk=855) 13.6 seconds 11.9-14.2 INR (BEAKER) (test rfcm=711) 1.1 <=5.9 Effective 04/01/2019: PT Reference Range ChangeNew: 11.9-14.2 Previous: 11.7- 14.7RECOMMENDED COUMADIN/WARFARIN INR THERAPY RANGESSTANDARD DOSE: 2.0-3.0 Includes: PROPHYLAXIS for venous thrombosis, systemic embolization; TREATMENT for venous thrombosis and/or pulmonary embolus.HIGH RISK: Target INR is2.5-3.5 for patients wiht mechanical heart valves.HEPATIC FUNCTION [id number] 17:16 :00 Test Item Value Reference Range Comments TOTAL PROTEIN (BEAKER) (test jjeu=487) 6.7 gm/dL 6.0-8.3 ALBUMIN (BEAKER) (test nvjq=0319) 3.0 g/dL 3.5-5.0 BILIRUBIN TOTAL (BEAKER) (test cmcc=505) 1.4 mg/dL 0.2-1.2 BILIRUBIN DIRECT (BEAKER) (test kvlk=551) 0.7 mg/dL 0.1-0.5 ALKALINE PHOSPHATASE (BEAKER) (test vpss=399) 139 U/L 40-150 AST (SGOT) (BEAKER) (test kkqp=130) 32 U/L 5-34 ALT (SGPT) (BEAKER) (test cime=211) 16 U/L 6-55 BASIC METABOLIC [id number] 17:16:00 Test Item Value Reference Range Comments SODIUM (BEAKER) (test 139 meq/L 136-145 qcmc=776) POTASSIUM (BEAKER) (test 3.6 meq/L 3.5-5.1 plbg=096) CHLORIDE (BEAKER) (test 99 meq/L 98-107 uwbs=762) CO2 (BEAKER) (test 32 meq/L 22-29 kaxs=188) BLOOD UREA NITROGEN 26 mg/dL 7-21 (BEAKER) (test gwij=869) CREATININE (BEAKER) (test 1.68 mg/dL 0.57-1.25 snib=159) GLUCOSE RANDOM (BEAKER) 263 mg/dL 70-105 (test fuxm=685) CALCIUM (BEAKER) (test 9.0 mg/dL 8.4-10.2 zaku=916) EGFR (BEAKER) (test 31 mL/min/1.73 sq m ESTIMATED GFR IS NOT hxmh=6481) ACCURATE CREATININE CLEARANCE IN PREDICTING GLOMERULAR FILTRATION RATE. ESTIMATED GFR IS NOT APPLICABLE FOR DIALYSIS PATIENTS. CBC W/PLT COUNT & AUTO [id number] 17:01:00 Test Item Value Reference Range Comments WHITE BLOOD CELL COUNT (BEAKER) (test sngn=396) 7.4 K/ L 3.5-10.5 RED BLOOD CELL COUNT (BEAKER) (test dueg=715) 3.44 M/ L 3.93-5.22 HEMOGLOBIN (BEAKER) (test hzll=003) 9.6 GM/DL 11.2-15.7 HEMATOCRIT (BEAKER) (test pvfz=329) 30.1 % 34.1-44.9 MEAN CORPUSCULAR VOLUME (BEAKER) (test mqpg=721) 87.5 fL 79.4-94.8 MEAN CORPUSCULAR HEMOGLOBIN (BEAKER) (test 27.9 pg 25.6-32.2 otkb=840) MEAN CORPUSCULAR HEMOGLOBIN CONC (BEAKER) (test 31.9 GM/DL 32.2-35.5 onnp=703) RED CELL DISTRIBUTION WIDTH (BEAKER) (test 16.0 % 11.7-14.4 sopu=117) PLATELET COUNT (BEAKER) (test jwkv=437) 190 K/CU MM 150-450 MEAN PLATELET VOLUME (BEAKER) (test hsie=760) 9.3 fL 9.4-12.3 NUCLEATED RED BLOOD CELLS (BEAKER) (test 0 /100 WBC 0-0 kvpq=550) NEUTROPHILS RELATIVE PERCENT (BEAKER) (test 65 % fexp=246) LYMPHOCYTES RELATIVE PERCENT (BEAKER) (test 23 % zvfl=455) MONOCYTES RELATIVE PERCENT (BEAKER) (test 6 % ycyj=642) EOSINOPHILS RELATIVE PERCENT (BEAKER) (test 5 % hbct=627) BASOPHILS RELATIVE PERCENT (BEAKER) (test 1 % vjzq=024) NEUTROPHILS ABSOLUTE COUNT (BEAKER) (test 4.83 K/ L 1.56-6.13 pjtc=557) LYMPHOCYTES ABSOLUTE COUNT (BEAKER) (test 1.67 K/ L 1.18-3.74 jrah=143) MONOCYTES ABSOLUTE COUNT (BEAKER) (test 0.41 K/ L 0.24-0.36 yrvf=791) EOSINOPHILS ABSOLUTE COUNT (BEAKER) (test 0.40 K/ L 0.04-0.36 ncuy=593) BASOPHILS ABSOLUTE COUNT (BEAKER) (test 0.06 K/ L 0.01-0.08 bvdt=365) IMMATURE GRANULOCYTES-RELATIVE PERCENT (BEAKER) 0 % 0-1 (test tove=3820) POCT-GLUCOSE [id number] 13:48:00 Test Item Value Reference Range Comments POC-GLUCOSE METER (BEAKER) 203 mg/dL 70-110 TESTED AT [facility] [address] [facility] (test tzil=6652) [facility] [address] POCT-GLUCOSE [id number] 09:45:00 Test Item Value Reference Range Comments POC-GLUCOSE METER (BEAKER) 168 mg/dL 70-110 TESTED AT [facility] [address] [facility] (test fmav=2879) [facility] [address] POCT-GLUCOSE [id number] 08:06:00 Test Item Value Reference Range Comments POC-GLUCOSE METER (BEAKER) 177 mg/dL 70-110 TESTED AT [address] (test elmp=7774) [facility] [address] COMPREHENSIVE METABOLIC [id number] 06:11:00 Test Item Value Reference Range Comments TOTAL PROTEIN (BEAKER) 5.5 gm/dL 6.0-8.3 (test ovvg=573) ALBUMIN (BEAKER) (test 3.0 g/dL 3.5-5.0 dfxm=9296) ALKALINE PHOSPHATASE 117 U/L 40-150 (BEAKER) (test yapv=247) BILIRUBIN TOTAL (BEAKER) 1.2 mg/dL 0.2-1.2 (test qkwr=047) SODIUM (BEAKER) (test 138 meq/L 136-145 xabu=976) POTASSIUM (BEAKER) (test 4.1 meq/L 3.5-5.1 wkrg=136) CHLORIDE (BEAKER) (test 102 meq/L 98-107 ztlo=534) CO2 (BEAKER) (test 29 meq/L 22-29 vlkx=384) BLOOD UREA NITROGEN 23 mg/dL 7-21 (BEAKER) (test hfst=361) CREATININE (BEAKER) (test 1.26 mg/dL 0.57-1.25 ozpi=928) GLUCOSE RANDOM (BEAKER) 177 mg/dL 70-105 (test dudd=144) CALCIUM (BEAKER) (test 8.3 mg/dL 8.4-10.2 rqpn=180) AST (SGOT) (BEAKER) (test 26 U/L 5-34 cpyc=840) ALT (SGPT) (BEAKER) (test 9 U/L 6-55 ofri=447) EGFR (BEAKER) (test 43 mL/min/1.73 sq m ESTIMATED GFR IS NOT kqjb=2667) ACCURATE CREATININE CLEARANCE IN PREDICTING GLOMERULAR FILTRATION RATE. ESTIMATED GFR IS NOT APPLICABLE FOR DIALYSIS PATIENTS. CBC (HEMOGRAM ONLY)2019-06-03 05:17:00 Test Item Value Reference Range Comments WHITE BLOOD CELL COUNT (BEAKER) (test slyf=331) 6.0 K/ L 3.5-10.5 RED BLOOD CELL COUNT (BEAKER) (test njzy=034) 2.95 M/ L 3.93-5.22 HEMOGLOBIN (BEAKER) (test pspj=624) 8.1 GM/DL 11.2-15.7 HEMATOCRIT (BEAKER) (test lqex=393) 26.3 % 34.1-44.9 MEAN CORPUSCULAR VOLUME (BEAKER) (test mwcf=757) 89.2 fL 79.4-94.8 MEAN CORPUSCULAR HEMOGLOBIN (BEAKER) (test 27.5 pg 25.6-32.2 etoo=174) MEAN CORPUSCULAR HEMOGLOBIN CONC (BEAKER) (test 30.8 GM/DL 32.2-35.5 bikz=764) RED CELL DISTRIBUTION WIDTH (BEAKER) (test 17.3 % 11.7-14.4 xejz=136) PLATELET COUNT (BEAKER) (test lfab=716) 203 K/CU MM 150-450 MEAN PLATELET VOLUME (BEAKER) (test behg=805) 9.2 fL 9.4-12.3 NUCLEATED RED BLOOD CELLS (BEAKER) (test 0 /100 WBC 0-0 vfwy=121) POCT-GLUCOSE [id number] 23:37:00 Test Item Value Reference Range Comments POC-GLUCOSE METER (BEAKER) 212 mg/dL 70-110 TESTED AT [place] [id number] [facility] (test cruj=8860) [facility] [address] POCT-GLUCOSE [id number] 16:58:00 Test Item Value Reference Range Comments POC-GLUCOSE METER (BEAKER) 313 mg/dL 70-110 TESTED AT [address] (test pfni=3994) [facility] [address] ANG, TIPSS [id number] 14:25:00Reason for exam:->still recurrent paracentesisFINAL REPORT Procedures:1. [...] the patient's medical record by the nurse. Protective Officer: Akil Chung MD. Cattle Manager: MD Ishaan (Fellow) Approach: 1. Right [...] skin and deep soft tissues. A 5 Senegalese one-step catheter wasinserted and removed from the [...] The needle was exchanged for a 4 Senegalese micropuncture sheath. The micropuncture sheath was exchanged over a 0.035 Bentson wire for a 5 Senegalese x 10 cm vascular sheath. The TIPS stent was then cannulated using a 5 [place]egalese C2 catheter and 0.035 angled Glidewire. The [...] Verified Date/Time: 06/02/2019 14:25:34 Reading Location : [place] [address] Angio Body Reading Room POCT-GLUCOSE [id number] 11:52:00 Test Item Value Reference Range Comments POC-GLUCOSE METER (BEAKER) 159 mg/dL 70-110 TESTED AT [facility] [address] [facility] (test qjqc=0204) [facility] [address] [id number] 05:55:00 Test Item Value Reference Range Comments MAGNESIUM (BEAKER) (test vcam=336) 1.6 mg/dL 1.6-2.6 COMPREHENSIVE METABOLIC [id number] 05:55:00 Test Item Value Reference Range Comments TOTAL PROTEIN (BEAKER) 5.7 gm/dL 6.0-8.3 (test asro=472) ALBUMIN (BEAKER) (test 3.3 g/dL 3.5-5.0 uyqt=8401) ALKALINE PHOSPHATASE 118 U/L 40-150 (BEAKER) (test qizs=384) BILIRUBIN TOTAL (BEAKER) 1.4 mg/dL 0.2-1.2 (test bglz=894) SODIUM (BEAKER) (test 140 meq/L 136-145 hdxa=990) POTASSIUM (BEAKER) (test 3.3 meq/L 3.5-5.1 uvqg=769) CHLORIDE (BEAKER) (test 101 meq/L 98-107 cxkv=979) CO2 (BEAKER) (test 31 meq/L 22-29 erqd=127) BLOOD UREA NITROGEN 23 mg/dL 7-21 (BEAKER) (test xgqw=609) CREATININE (BEAKER) (test 1.33 mg/dL 0.57-1.25 oopv=839) GLUCOSE RANDOM (BEAKER) 131 mg/dL 70-105 (test vnjf=731) CALCIUM (BEAKER) (test 8.7 mg/dL 8.4-10.2 gdnh=918) AST (SGOT) (BEAKER) (test 27 U/L 5-34 ollh=069) ALT (SGPT) (BEAKER) (test 11 U/L 6-55 qiit=924) EGFR (BEAKER) (test 41 mL/min/1.73 sq m ESTIMATED GFR IS NOT kpkm=3787) ACCURATE CREATININE CLEARANCE IN PREDICTING GLOMERULAR FILTRATION RATE. ESTIMATED GFR IS NOT APPLICABLE FOR DIALYSIS PATIENTS. CBC W/PLT COUNT & AUTO [id number] 05:43:00 Test Item Value Reference Range Comments WHITE BLOOD CELL COUNT (BEAKER) (test xfxa=148) 6.0 K/ L 3.5-10.5 RED BLOOD CELL COUNT (BEAKER) (test fybb=715) 2.97 M/ L 3.93-5.22 HEMOGLOBIN (BEAKER) (test wksb=635) 8.2 GM/DL 11.2-15.7 HEMATOCRIT (BEAKER) (test aknq=586) 26.0 % 34.1-44.9 MEAN CORPUSCULAR VOLUME (BEAKER) (test iaqh=271) 87.5 fL 79.4-94.8 MEAN CORPUSCULAR HEMOGLOBIN (BEAKER) (test 27.6 pg 25.6-32.2 rjhf=122) MEAN CORPUSCULAR HEMOGLOBIN CONC (BEAKER) (test 31.5 GM/DL 32.2-35.5 fcqh=716) RED CELL DISTRIBUTION WIDTH (BEAKER) (test 17.7 % 11.7-14.4 ldim=680) PLATELET COUNT (BEAKER) (test igab=470) 194 K/CU MM 150-450 MEAN PLATELET VOLUME (BEAKER) (test nddc=217) 9.3 fL 9.4-12.3 NUCLEATED RED BLOOD CELLS (BEAKER) (test 0 /100 WBC 0-0 wtmh=129) NEUTROPHILS RELATIVE PERCENT (BEAKER) (test 48 % usrp=018) LYMPHOCYTES RELATIVE PERCENT (BEAKER) (test 31 % dyds=997) MONOCYTES RELATIVE PERCENT (BEAKER) (test 10 % nvda=657) EOSINOPHILS RELATIVE PERCENT (BEAKER) (test 9 % yhrx=983) BASOPHILS RELATIVE PERCENT (BEAKER) (test 1 % cutz=383) NEUTROPHILS ABSOLUTE COUNT (BEAKER) (test 2.84 K/ L 1.56-6.13 rkfi=309) LYMPHOCYTES ABSOLUTE COUNT (BEAKER) (test 1.87 K/ L 1.18-3.74 rxui=515) MONOCYTES ABSOLUTE COUNT (BEAKER) (test 0.60 K/ L 0.24-0.36 onab=213) EOSINOPHILS ABSOLUTE COUNT (BEAKER) (test 0.56 K/ L 0.04-0.36 jjxa=608) BASOPHILS ABSOLUTE COUNT (BEAKER) (test 0.08 K/ L 0.01-0.08 zaab=779) IMMATURE GRANULOCYTES-RELATIVE PERCENT (BEAKER) 0 % 0-1 (test jkwj=0140) [id number] 05:42:00 Test Item Value Reference Range Comments PHOSPHORUS (BEAKER) (test aijn=827) 2.3 mg/dL 2.3-4.7 POCT-GLUCOSE [id number] 22:34:00 Test Item Value Reference Range Comments POC-GLUCOSE METER (BEAKER) 192 mg/dL 70-110 TESTED AT [address] (test dslx=7573) [place] [id number] POCT-GLUCOSE [id number] 17:01:00 Test Item Value Reference Range Comments POC-GLUCOSE METER (BEAKER) 250 mg/dL 70-110 TESTED AT [address] (test spfo=4634) [place] [address] [id number] 07:42:00 Test Item Value Reference Range Comments MAGNESIUM (BEAKER) (test 1.6 mg/dL 1.6-2.6 Specimen slightly hemolyzed tzfl=325) [id number] 07:42:00 Test Item Value Reference Range Comments PHOSPHORUS (BEAKER) (test 2.8 mg/dL 2.3-4.7 Specimen slightly hemolyzed omlh=199) COMPREHENSIVE METABOLIC [id number] 07:42:00 Test Item Value Reference Range Comments TOTAL PROTEIN (BEAKER) 5.5 gm/dL 6.0-8.3 Specimen slightly (test gwwy=904) hemolyzed ALBUMIN (BEAKER) (test 2.9 g/dL 3.5-5.0 Specimen slightly xtqb=4994) hemolyzed ALKALINE PHOSPHATASE 125 U/L 40-150 (BEAKER) (test puei=432) BILIRUBIN TOTAL (BEAKER) 1.1 mg/dL 0.2-1.2 Specimen slightly (test cvjc=916) hemolyzed SODIUM (BEAKER) (test 141 meq/L 136-145 pmex=012) POTASSIUM (BEAKER) (test 3.6 meq/L 3.5-5.1 Specimen slightly ortu=243) hemolyzed CHLORIDE (BEAKER) (test 101 meq/L 98-107 yisd=703) CO2 (BEAKER) (test 31 meq/L 22-29 owtx=579) BLOOD UREA NITROGEN 23 mg/dL 7-21 (BEAKER) (test onkj=280) CREATININE (BEAKER) (test 1.50 mg/dL 0.57-1.25 Specimen slightly sihw=116) hemolyzed GLUCOSE RANDOM (BEAKER) 153 mg/dL 70-105 (test uzkl=273) CALCIUM (BEAKER) (test 8.7 mg/dL 8.4-10.2 nloz=172) AST (SGOT) (BEAKER) (test 35 U/L 5-34 Specimen slightly evkz=040) hemolyzed ALT (SGPT) (BEAKER) (test 12 U/L 6-55 Specimen slightly zmge=029) hemolyzed EGFR (BEAKER) (test 35 mL/min/1.73 sq m ESTIMATED GFR IS NOT uvhz=5816) ACCURATE CREATININE CLEARANCE IN PREDICTING GLOMERULAR FILTRATION RATE. ESTIMATED GFR IS NOT APPLICABLE FOR DIALYSIS PATIENTS. POCT-GLUCOSE [id number] 07:38:00 Test Item Value Reference Range Comments POC-GLUCOSE METER (BEAKER) 154 mg/dL 70-110 TESTED AT [facility] [address] [facility] (test uoch=9086) [facility] [address] CBC W/PLT COUNT & AUTO [id number] 06:24:00 Test Item Value Reference Range Comments WHITE BLOOD CELL COUNT (BEAKER) (test dzcp=460) 6.0 K/ L 3.5-10.5 RED BLOOD CELL COUNT (BEAKER) (test okwf=931) 3.09 M/ L 3.93-5.22 HEMOGLOBIN (BEAKER) (test msrw=964) 8.5 GM/DL 11.2-15.7 HEMATOCRIT (BEAKER) (test ezek=672) 27.0 % 34.1-44.9 MEAN CORPUSCULAR VOLUME (BEAKER) (test ltpt=200) 87.4 fL 79.4-94.8 MEAN CORPUSCULAR HEMOGLOBIN (BEAKER) (test 27.5 pg 25.6-32.2 ytaw=962) MEAN CORPUSCULAR HEMOGLOBIN CONC (BEAKER) (test 31.5 GM/DL 32.2-35.5 spzi=586) RED CELL DISTRIBUTION WIDTH (BEAKER) (test 17.7 % 11.7-14.4 akpz=797) PLATELET COUNT (BEAKER) (test ihaa=058) 196 K/CU MM 150-450 MEAN PLATELET VOLUME (BEAKER) (test ouuy=585) 8.9 fL 9.4-12.3 NUCLEATED RED BLOOD CELLS (BEAKER) (test 0 /100 WBC 0-0 owbb=812) NEUTROPHILS RELATIVE PERCENT (BEAKER) (test 44 % kzzr=674) LYMPHOCYTES RELATIVE PERCENT (BEAKER) (test 34 % phzm=173) MONOCYTES RELATIVE PERCENT (BEAKER) (test 11 % olmg=100) EOSINOPHILS RELATIVE PERCENT (BEAKER) (test 9 % cyed=684) BASOPHILS RELATIVE PERCENT (BEAKER) (test 2 % xbok=695) NEUTROPHILS ABSOLUTE COUNT (BEAKER) (test 2.64 K/ L 1.56-6.13 irve=971) LYMPHOCYTES ABSOLUTE COUNT (BEAKER) (test 2.03 K/ L 1.18-3.74 irvb=428) MONOCYTES ABSOLUTE COUNT (BEAKER) (test 0.64 K/ L 0.24-0.36 huqo=982) EOSINOPHILS ABSOLUTE COUNT (BEAKER) (test 0.54 K/ L 0.04-0.36 dojn=419) BASOPHILS ABSOLUTE COUNT (BEAKER) (test 0.09 K/ L 0.01-0.08 hehi=409) IMMATURE GRANULOCYTES-RELATIVE PERCENT (BEAKER) 0 % 0-1 (test oarx=7502) CALCIUM, [id number] 05:35:00 Test Item Value Reference Range Comments CALCIUM IONIZED (BEAKER) (test bjvv=989) 0.99 mmol/L 1.12-1.27 PH, BLOOD (BEAKER) (test yxhi=1647) 7.50 POCT-GLUCOSE [id number] 22:12:00 Test Item Value Reference Range Comments POC-GLUCOSE METER (BEAKER) 246 mg/dL 70-110 TESTED AT [address] (test lkve=7963) [facility] [address] POCT-GLUCOSE [id number] 17:11:00 Test Item Value Reference Range Comments POC-GLUCOSE METER (BEAKER) 201 mg/dL 70-110 TESTED AT [facility] [address] [facility] (test fstu=3410) [facility] [address] POCT-GLUCOSE [id number] 13:24:00 Test Item Value Reference Range Comments POC-GLUCOSE METER (BEAKER) 173 mg/dL 70-110 TESTED AT [place] [id number] [facility] (test rxot=8385) [facility] [address] COMPREHENSIVE METABOLIC [id number] 09:06:00 Test Item Value Reference Range Comments TOTAL PROTEIN (BEAKER) 5.8 gm/dL 6.0-8.3 (test vwek=821) ALBUMIN (BEAKER) (test 3.2 g/dL 3.5-5.0 izef=1860) ALKALINE PHOSPHATASE 125 U/L 40-150 (BEAKER) (test iriw=058) BILIRUBIN TOTAL (BEAKER) 1.6 mg/dL 0.2-1.2 (test lyly=059) SODIUM (BEAKER) (test 140 meq/L 136-145 naia=112) POTASSIUM (BEAKER) (test 3.4 meq/L 3.5-5.1 pekb=842) CHLORIDE (BEAKER) (test 100 meq/L 98-107 wdmi=056) CO2 (BEAKER) (test 31 meq/L 22-29 disp=189) BLOOD UREA NITROGEN 21 mg/dL 7-21 (BEAKER) (test enoe=208) CREATININE (BEAKER) (test 1.57 mg/dL 0.57-1.25 lqwf=600) GLUCOSE RANDOM (BEAKER) 138 mg/dL 70-105 (test cdbp=374) CALCIUM (BEAKER) (test 8.9 mg/dL 8.4-10.2 yabw=363) AST (SGOT) (BEAKER) (test 33 U/L 5-34 ojwv=448) ALT (SGPT) (BEAKER) (test 13 U/L 6-55 mqdp=865) EGFR (BEAKER) (test 33 mL/min/1.73 sq m ESTIMATED GFR IS NOT eqwl=8580) ACCURATE CREATININE CLEARANCE IN PREDICTING GLOMERULAR FILTRATION RATE. ESTIMATED GFR IS NOT APPLICABLE FOR DIALYSIS PATIENTS. Specimen slightly ictericPOCT-GLUCOSE [id number] 07:53:00 Test Item Value Reference Range Comments POC-GLUCOSE METER (BEAKER) 157 mg/dL 70-110 TESTED AT [address] (test ozao=8559) [facility] [address] CBC (HEMOGRAM ONLY)2019-05-31 06:33:00 Test Item Value Reference Range Comments WHITE BLOOD CELL COUNT (BEAKER) (test zyke=263) 5.7 K/ L 3.5-10.5 RED BLOOD CELL COUNT (BEAKER) (test jqqg=985) 3.25 M/ L 3.93-5.22 HEMOGLOBIN (BEAKER) (test yvvb=284) 8.9 GM/DL 11.2-15.7 HEMATOCRIT (BEAKER) (test yinu=107) 28.3 % 34.1-44.9 MEAN CORPUSCULAR VOLUME (BEAKER) (test gpbx=181) 87.1 fL 79.4-94.8 MEAN CORPUSCULAR HEMOGLOBIN (BEAKER) (test 27.4 pg 25.6-32.2 oroe=635) MEAN CORPUSCULAR HEMOGLOBIN CONC (BEAKER) (test 31.4 GM/DL 32.2-35.5 esed=304) RED CELL DISTRIBUTION WIDTH (BEAKER) (test 17.5 % 11.7-14.4 seom=630) PLATELET COUNT (BEAKER) (test iotl=819) 188 K/CU MM 150-450 MEAN PLATELET VOLUME (BEAKER) (test cyuk=238) 9.1 fL 9.4-12.3 NUCLEATED RED BLOOD CELLS (BEAKER) (test 0 /100 WBC 0-0 qewe=120) POCT-GLUCOSE [id number] 22:28:00 Test Item Value Reference Range Comments POC-GLUCOSE METER (BEAKER) 193 mg/dL 70-110 TESTED AT [address] (test gipm=9628) [facility] [address] POCT-GLUCOSE [id number] 17:19:00 Test Item Value Reference Range Comments POC-GLUCOSE METER (BEAKER) 155 mg/dL 70-110 TESTED AT [address] (test ifgo=1130) [facility] [address] POCT-GLUCOSE [id number] 12:44:00 Test Item Value Reference Range Comments POC-GLUCOSE METER (BEAKER) 189 mg/dL 70-110 TESTED AT [facility] [address] [facility] (test rtka=0325) [facility] [address] POCT-GLUCOSE [id number] 08:30:00 Test Item Value Reference Range Comments POC-GLUCOSE METER (BEAKER) 140 mg/dL 70-110 TESTED AT [facility] [address] [facility] (test xyaw=6090) [facility] [address] [id number] 05:15:00 Test Item Value Reference Range Comments THYROID STIMULATING HORMONE (BEAKER) (test 6.32 uIU/mL 0.35-4.94 vwxe=884) T4, [id number] 05:11:00 Test Item Value Reference Range Comments FREE T4 (BEAKER) (test gfak=698) 1.70 ng/dL 0.70-1.48 [id number] 04:53:00 Test Item Value Reference Range Comments PHOSPHORUS (BEAKER) (test rmfh=834) 2.4 mg/dL 2.3-4.7 [id number] 04:53:00 Test Item Value Reference Range Comments MAGNESIUM (BEAKER) (test smdq=135) 1.8 mg/dL 1.6-2.6 COMPREHENSIVE METABOLIC [id number] 04:53:00 Test Item Value Reference Range Comments TOTAL PROTEIN (BEAKER) 5.1 gm/dL 6.0-8.3 (test qwbf=054) ALBUMIN (BEAKER) (test 2.9 g/dL 3.5-5.0 nlwm=3928) ALKALINE PHOSPHATASE 101 U/L 40-150 (BEAKER) (test joms=576) BILIRUBIN TOTAL (BEAKER) 1.6 mg/dL 0.2-1.2 (test tzri=020) SODIUM (BEAKER) (test 137 meq/L 136-145 eugi=922) POTASSIUM (BEAKER) (test 3.7 meq/L 3.5-5.1 unos=435) CHLORIDE (BEAKER) (test 99 meq/L 98-107 syix=768) CO2 (BEAKER) (test 32 meq/L 22-29 sqqb=923) BLOOD UREA NITROGEN 20 mg/dL 7-21 (BEAKER) (test dyvk=787) CREATININE (BEAKER) (test 1.55 mg/dL 0.57-1.25 zvai=094) GLUCOSE RANDOM (BEAKER) 157 mg/dL 70-105 (test capk=750) CALCIUM (BEAKER) (test 8.3 mg/dL 8.4-10.2 haza=833) AST (SGOT) (BEAKER) (test 33 U/L 5-34 wvyc=307) ALT (SGPT) (BEAKER) (test 12 U/L 6-55 xzcz=601) EGFR (BEAKER) (test 34 mL/min/1.73 sq m ESTIMATED GFR IS NOT cvca=8887) ACCURATE CREATININE CLEARANCE IN PREDICTING GLOMERULAR FILTRATION RATE. ESTIMATED GFR IS NOT APPLICABLE FOR DIALYSIS PATIENTS. CBC (HEMOGRAM ONLY)2019-05-30 04:13:00 Test Item Value Reference Range Comments WHITE BLOOD CELL COUNT (BEAKER) (test dewm=732) 5.3 K/ L 3.5-10.5 RED BLOOD CELL COUNT (BEAKER) (test dqgt=322) 2.75 M/ L 3.93-5.22 HEMOGLOBIN (BEAKER) (test aqwz=886) 7.6 GM/DL 11.2-15.7 HEMATOCRIT (BEAKER) (test axrt=437) 24.2 % 34.1-44.9 MEAN CORPUSCULAR VOLUME (BEAKER) (test garp=262) 88.0 fL 79.4-94.8 MEAN CORPUSCULAR HEMOGLOBIN (BEAKER) (test 27.6 pg 25.6-32.2 fsji=037) MEAN CORPUSCULAR HEMOGLOBIN CONC (BEAKER) (test 31.4 GM/DL 32.2-35.5 wwhk=965) RED CELL DISTRIBUTION WIDTH (BEAKER) (test 17.4 % 11.7-14.4 xkpg=310) PLATELET COUNT (BEAKER) (test whre=902) 162 K/CU MM 150-450 MEAN PLATELET VOLUME (BEAKER) (test pejk=679) 9.2 fL 9.4-12.3 NUCLEATED RED BLOOD CELLS (BEAKER) (test 0 /100 WBC 0-0 rwvk=918) CALCIUM, [id number] 04:13:00 Test Item Value Reference Range Comments CALCIUM IONIZED (BEAKER) (test srkk=334) 0.98 mmol/L 1.12-1.27 PH, BLOOD (BEAKER) (test igwx=4082) 7.58 RAD, CHEST, 2 [id number] 23:47:00Reason for exam:->opacitiesFINAL REPORT Portable chest. HISTORY: [...] MDReport Verified Date/Time: 05/29/2019 23:47:08 Reading Location: [address] Consult Reading Room POCT-GLUCOSE [id number] 23:12:00 Test Item Value Reference Range Comments POC-GLUCOSE METER (BEAKER) 192 mg/dL 70-110 TESTED AT [address] (test cemn=4783) [facility] [address] URINALYSIS W/ [id number] 18:14:00 Test Item Value Reference Range Comments COLOR (BEAKER) (test knbz=449) Yellow CLARITY (BEAKER) (test qccp=293) Clear SPECIFIC GRAVITY UA (BEAKER) (test 1.011 1.001-1.035 whgy=863) PH UA (BEAKER) (test ostq=373) 8.5 5.0-8.0 PROTEIN UA (BEAKER) (test vldv=530) 20 mg/dL Negative GLUCOSE UA (BEAKER) (test zffa=021) Negative Negative KETONES UA (BEAKER) (test rddu=638) Negative Negative BILIRUBIN UA (BEAKER) (test beei=734) Negative Negative BLOOD UA (BEAKER) (test dphi=286) Negative Negative NITRITE UA (BEAKER) (test uvuf=582) Negative Negative LEUKOCYTE ESTERASE UA (BEAKER) (test Negative Negative tgfr=295) UROBILINOGEN UA (BEAKER) (test epqc=932) 12.0 mg/dL 0.2-1.0 RBC UA (BEAKER) (test egys=225) < /HPF WBC UA (BEAKER) (test qdbi=280) 1 /HPF BACTERIA (BEAKER) (test shyd=272) Rare SQUAMOUS EPITHELIAL (BEAKER) (test 3 /HPF ruro=427) SOURCE(BEAKER) (test adzi=4463) Urine, Clean Catch POCT-GLUCOSE [id number] 16:55:00 Test Item Value Reference Range Comments POC-GLUCOSE METER (BEAKER) 186 mg/dL 70-110 TESTED AT [address] (test dvfr=0591) [facility] [address] TISSUE [id number] 15:15:00Surgical Pathology Report Case: [id number] Authorizing Provider: Shannen Giron MD Collected: 05/28/2019 1448 Ordering Location: [address] Received: 05/29/2019 0915 Service Pathologist: Padilla Reed MD Specimen: Polyp, Colon - Right/Ascending, taken by doug pathak PART A RIGHT ASCENDING COLON POLYP, POLYPECTOMY:TUBULAR ADENOMA. Signing Pathologist Direct Phone Line: [phone] signed by Padilla Reed MD on 05/29/2019 at 3:15 [id number] colonoscopyRight ascending colonReceived in formalin, labelled with the patients name, date of , and medical record number and labelled "right ascending colon polyp" are three portions of silva tissue measuring 0.5 x 0.4 x 0.3 cm in aggregate. Submitted in toto in one cassette. Performed.BODY FLUID CULTURE + GRAM [id number] 12:56:00 Test Item Value Reference Range Comments CULTURE (BEAKER) (test cuti=1807) No growth GRAM STAIN RESULT (BEAKER) (test No WBCs ipvc=8368) GRAM STAIN RESULT (BEAKER) (test No organisms seen fblo=20824) POCT-GLUCOSE [id number] 12:37:00 Test Item Value Reference Range Comments POC-GLUCOSE METER (BEAKER) 154 mg/dL 70-110 TESTED AT [address] (test wllv=9361) [place] [id number] POCT-GLUCOSE [id number] 09:12:00 Test Item Value Reference Range Comments POC-GLUCOSE METER (BEAKER) 76 mg/dL 70-110 TESTED AT [address] (test kfoy=5160) [facility] [address] COMPREHENSIVE METABOLIC [id number] 08:19:00 Test Item Value Reference Range Comments TOTAL PROTEIN (BEAKER) 4.9 gm/dL 6.0-8.3 (test tbmp=070) ALBUMIN (BEAKER) (test 3.0 g/dL 3.5-5.0 binb=9994) ALKALINE PHOSPHATASE 88 U/L 40-150 (BEAKER) (test pfwz=912) BILIRUBIN TOTAL (BEAKER) 1.9 mg/dL 0.2-1.2 (test dqke=370) SODIUM (BEAKER) (test 141 meq/L 136-145 ebvu=579) POTASSIUM (BEAKER) (test 3.5 meq/L 3.5-5.1 xpyr=358) CHLORIDE (BEAKER) (test 100 meq/L 98-107 bvfk=937) CO2 (BEAKER) (test 34 meq/L 22-29 ntfz=508) BLOOD UREA NITROGEN 18 mg/dL 7-21 (BEAKER) (test kmmj=853) CREATININE (BEAKER) (test 1.50 mg/dL 0.57-1.25 dlml=555) GLUCOSE RANDOM (BEAKER) 92 mg/dL 70-105 (test lfsf=377) CALCIUM (BEAKER) (test 8.5 mg/dL 8.4-10.2 xqvr=178) AST (SGOT) (BEAKER) (test 27 U/L 5-34 mdtd=711) ALT (SGPT) (BEAKER) (test 10 U/L 6-55 cixt=867) EGFR (BEAKER) (test 35 mL/min/1.73 sq m ESTIMATED GFR IS NOT yotf=4734) ACCURATE CREATININE CLEARANCE IN PREDICTING GLOMERULAR FILTRATION RATE. ESTIMATED GFR IS NOT APPLICABLE FOR DIALYSIS PATIENTS. Specimen slightly [id number] 08:18:00 Test Item Value Reference Range Comments PHOSPHORUS (BEAKER) (test hlsz=005) 2.8 mg/dL 2.3-4.7 [id number] 08:18:00 Test Item Value Reference Range Comments MAGNESIUM (BEAKER) (test rhkk=710) 2.0 mg/dL 1.6-2.6 CBC W/PLT COUNT & AUTO [id number] 05:59:00 Test Item Value Reference Range Comments WHITE BLOOD CELL COUNT (BEAKER) (test hzyy=742) 5.3 K/ L 3.5-10.5 RED BLOOD CELL COUNT (BEAKER) (test ydvx=601) 2.79 M/ L 3.93-5.22 HEMOGLOBIN (BEAKER) (test alwn=258) 7.7 GM/DL 11.2-15.7 HEMATOCRIT (BEAKER) (test motv=495) 24.8 % 34.1-44.9 MEAN CORPUSCULAR VOLUME (BEAKER) (test ijud=661) 88.9 fL 79.4-94.8 MEAN CORPUSCULAR HEMOGLOBIN (BEAKER) (test 27.6 pg 25.6-32.2 hlla=393) MEAN CORPUSCULAR HEMOGLOBIN CONC (BEAKER) (test 31.0 GM/DL 32.2-35.5 vtod=791) RED CELL DISTRIBUTION WIDTH (BEAKER) (test 17.6 % 11.7-14.4 ptcr=833) PLATELET COUNT (BEAKER) (test tisn=589) 146 K/CU MM 150-450 MEAN PLATELET VOLUME (BEAKER) (test abfk=104) 9.6 fL 9.4-12.3 NUCLEATED RED BLOOD CELLS (BEAKER) (test 0 /100 WBC 0-0 pxmn=822) NEUTROPHILS RELATIVE PERCENT (BEAKER) (test 46 % vowq=459) LYMPHOCYTES RELATIVE PERCENT (BEAKER) (test 31 % xsge=885) MONOCYTES RELATIVE PERCENT (BEAKER) (test 11 % fecb=681) EOSINOPHILS RELATIVE PERCENT (BEAKER) (test 10 % guoe=605) BASOPHILS RELATIVE PERCENT (BEAKER) (test 2 % wqpn=856) NEUTROPHILS ABSOLUTE COUNT (BEAKER) (test 2.46 K/ L 1.56-6.13 wmud=607) LYMPHOCYTES ABSOLUTE COUNT (BEAKER) (test 1.66 K/ L 1.18-3.74 aclg=798) MONOCYTES ABSOLUTE COUNT (BEAKER) (test 0.57 K/ L 0.24-0.36 bolt=114) EOSINOPHILS ABSOLUTE COUNT (BEAKER) (test 0.52 K/ L 0.04-0.36 avan=154) BASOPHILS ABSOLUTE COUNT (BEAKER) (test 0.08 K/ L 0.01-0.08 geju=689) IMMATURE GRANULOCYTES-RELATIVE PERCENT (BEAKER) 0 % 0-1 (test hngl=6468) CALCIUM, [id number] 05:04:00 Test Item Value Reference Range Comments CALCIUM IONIZED (BEAKER) (test lnzb=835) 1.02 mmol/L 1.12-1.27 PH, BLOOD (BEAKER) (test eqou=9426) 7.50 POCT-GLUCOSE [id number] 21:27:00 Test Item Value Reference Range Comments POC-GLUCOSE METER (BEAKER) 139 mg/dL 70-110 TESTED AT [address] (test thvu=0089) [place] [address] BASIC METABOLIC [id number] 18:28:00 Test Item Value Reference Range Comments SODIUM (BEAKER) (test 142 meq/L 136-145 xnjm=519) POTASSIUM (BEAKER) (test 3.5 meq/L 3.5-5.1 vksu=137) CHLORIDE (BEAKER) (test 99 meq/L 98-107 vjwm=366) CO2 (BEAKER) (test 37 meq/L 22-29 pjsq=646) BLOOD UREA NITROGEN 17 mg/dL 7-21 (BEAKER) (test tdlm=555) CREATININE (BEAKER) (test 1.38 mg/dL 0.57-1.25 piqc=719) GLUCOSE RANDOM (BEAKER) 78 mg/dL 70-105 (test xfxo=507) CALCIUM (BEAKER) (test 8.5 mg/dL 8.4-10.2 albd=052) EGFR (BEAKER) (test 39 mL/min/1.73 sq m ESTIMATED GFR IS NOT xdlf=4645) ACCURATE CREATININE CLEARANCE IN PREDICTING GLOMERULAR FILTRATION RATE. ESTIMATED GFR IS NOT APPLICABLE FOR DIALYSIS PATIENTS. Call [id number] with resultsSpecimen slightly ictericPOCT-GLUCOSE [id number] 18:10:00 Test Item Value Reference Range Comments POC-GLUCOSE METER (BEAKER) 82 mg/dL 70-110 TESTED AT [address] (test ackd=3307) [place] [id number] CBC W/PLT COUNT & AUTO [id number] 11:56:00 Test Item Value Reference Range Comments WHITE BLOOD CELL COUNT (BEAKER) (test aazg=294) 5.0 K/ L 3.5-10.5 RED BLOOD CELL COUNT (BEAKER) (test jnlk=848) 2.82 M/ L 3.93-5.22 HEMOGLOBIN (BEAKER) (test mpsr=189) 7.9 GM/DL 11.2-15.7 HEMATOCRIT (BEAKER) (test jjvw=525) 25.0 % 34.1-44.9 MEAN CORPUSCULAR VOLUME (BEAKER) (test yyge=810) 88.7 fL 79.4-94.8 MEAN CORPUSCULAR HEMOGLOBIN (BEAKER) (test 28.0 pg 25.6-32.2 lytb=430) MEAN CORPUSCULAR HEMOGLOBIN CONC (BEAKER) (test 31.6 GM/DL 32.2-35.5 fzmi=329) RED CELL DISTRIBUTION WIDTH (BEAKER) (test 17.6 % 11.7-14.4 xiaf=489) PLATELET COUNT (BEAKER) (test thbm=881) 155 K/CU MM 150-450 MEAN PLATELET VOLUME (BEAKER) (test ytjv=269) 9.5 fL 9.4-12.3 NUCLEATED RED BLOOD CELLS (BEAKER) (test 0 /100 WBC 0-0 xkkf=945) (CELLAVISION MANUAL DIFF)2019-05-28 11:56:00 Test Item Value Reference Range Comments NEUTROPHILS - REL (CELLAVISION)(BEAKER) (test 69 % meko=1813) LYMPHOCYTES - REL (CELLAVISION)(BEAKER) (test 21 % ehsk=5726) MONOCYTES - REL (CELLAVISION)(BEAKER) (test 3 % xaix=0028) EOSINOPHILS - REL (CELLAVISION)(BEAKER) (test 5 % xbhg=3886) BASOPHILS - REL (CELLAVISION)(BEAKER) (test 1 % vdns=0591) MYELOCYTES - REL (CELLAVISION)(BEAKER) (test 1 % 0-0 mkkz=1108) NEUTROPHILS - ABS (CELLAVISION)(BEAKER) (test 3.45 K/ul 1.56-6.13 sjqm=2209) LYMPHOCYTES - ABS (CELLAVISION)(BEAKER) (test 1.05 K/ul 1.18-3.74 txoj=7992) MONOCYTES - ABS (CELLAVISION)(BEAKER) (test 0.15 K/uL 0.24-0.36 viqx=1097) EOSINOPHILS - ABS (CELLAVISION)(BEAKER) (test 0.25 K/uL 0.04-0.36 ighe=5080) BASOPHILS - ABS (CELLAVISION)(BEAKER) (test 0.05 K/uL 0.01-0.08 sppb=1360) MYELOCYTES-ABS (CELLAVISION)(BEAKER) (test 0.05 K/uL 0.00-0.00 xssv=5866) TOTAL COUNTED (BEAKER) (test sxud=1828) 100 PLT MORPHOLOGY (BEAKER) (test siig=989) Normal SMUDGE CELLS (BEAKER) (test nyhb=6507) Present POLYCHROMATOPHILLIC RBCS(BEAKER) (test vztd=115) 1+ few ANISOCYTOSIS (BEAKER) (test nxzf=066) 2+ moderate MICROCYTES (BEAKER) (test fjqe=257) 2+ moderate POIKILOCYTES (BEAKER) (test btzv=905) 1+ few SPHEROCYTES (BEAKER) (test lyjm=134) 1+ few PLATELET CONCENTRATION (CELLAVISION)(BEAKER) Adequate (test qcvi=4077) Received comment: User comments: Slide comments:POCT-GLUCOSE [id number] 10: 05:00 Test Item Value Reference Range Comments POC-GLUCOSE METER (BEAKER) 82 mg/dL 70-110 TESTED AT [address] (test mgwk=8757) [facility] [address] POCT-GLUCOSE [id number] 09:07:00 Test Item Value Reference Range Comments POC-GLUCOSE METER (BEAKER) 84 mg/dL 70-110 TESTED AT [address] (test txdl=5179) [facility] [address] [id number] 06:31:00 Test Item Value Reference Range Comments PHOSPHORUS (BEAKER) (test dekp=072) 2.5 mg/dL 2.3-4.7 [id number] 06:31:00 Test Item Value Reference Range Comments MAGNESIUM (BEAKER) (test vudt=296) 1.7 mg/dL 1.6-2.6 COMPREHENSIVE METABOLIC [id number] 06:31:00 Test Item Value Reference Range Comments TOTAL PROTEIN (BEAKER) 4.9 gm/dL 6.0-8.3 (test rpsd=356) ALBUMIN (BEAKER) (test 3.1 g/dL 3.5-5.0 jiov=2147) ALKALINE PHOSPHATASE 82 U/L 40-150 (BEAKER) (test yhuq=224) BILIRUBIN TOTAL (BEAKER) 2.3 mg/dL 0.2-1.2 (test unjr=913) SODIUM (BEAKER) (test 143 meq/L 136-145 grnw=882) POTASSIUM (BEAKER) (test 3.5 meq/L 3.5-5.1 zhjt=209) CHLORIDE (BEAKER) (test 100 meq/L 98-107 tinp=661) CO2 (BEAKER) (test 37 meq/L 22-29 quau=503) BLOOD UREA NITROGEN 16 mg/dL 7-21 (BEAKER) (test qrcq=267) CREATININE (BEAKER) (test 1.37 mg/dL 0.57-1.25 sqeh=143) GLUCOSE RANDOM (BEAKER) 96 mg/dL 70-105 (test hwzf=899) CALCIUM (BEAKER) (test 8.6 mg/dL 8.4-10.2 rlbh=650) AST (SGOT) (BEAKER) (test 30 U/L 5-34 odnv=878) ALT (SGPT) (BEAKER) (test 10 U/L 6-55 rwac=962) EGFR (BEAKER) (test 39 mL/min/1.73 sq m ESTIMATED GFR IS NOT vwry=4768) ACCURATE CREATININE CLEARANCE IN PREDICTING GLOMERULAR FILTRATION RATE. ESTIMATED GFR IS NOT APPLICABLE FOR DIALYSIS PATIENTS. Specimen slightly ictericB-TYPE NATRIURETIC FACTOR (BNP)2019-05-28 06:19:00 Test Item Value Reference Range Comments B-TYPE NATRIURETIC PEPTIDE (BEAKER) (test 381 pg/mL 0-100 baup=402) CALCIUM, [id number] 05:25:00 Test Item Value Reference Range Comments CALCIUM IONIZED (BEAKER) (test wisp=780) 1.03 mmol/L 1.12-1.27 PH, BLOOD (BEAKER) (test smtz=0569) 7.49 POCT-GLUCOSE [id number] 22:42:00 Test Item Value Reference Range Comments POC-GLUCOSE METER (BEAKER) 174 mg/dL 70-110 TESTED AT [address] (test hgbw=4685) [facility] [address] [id number] 17:57:00 Test Item Value Reference Range Comments SODIUM (BEAKER) (test wflr=900) 140 meq/L 136-145 POTASSIUM (BEAKER) (test 3.9 meq/L 3.5-5.1 Specimen slightly hemolyzed zwza=743) CHLORIDE (BEAKER) (test 99 meq/L 98-107 sbfy=256) CO2 (BEAKER) (test zkxf=296) 35 meq/L 22-29 Call [id number] 17:50:00 Test Item Value Reference Range Comments POC-GLUCOSE METER (BEAKER) 151 mg/dL 70-110 TESTED AT [address] (test ihzu=9969) [place] [id number] POCT-GLUCOSE [id number] 12:36:00 Test Item Value Reference Range Comments POC-GLUCOSE METER (BEAKER) 123 mg/dL 70-110 TESTED AT [address] (test wzrk=2790) [place] [address] POCT-GLUCOSE [id number] 08:15:00 Test Item Value Reference Range Comments POC-GLUCOSE METER (BEAKER) 121 mg/dL 70-110 TESTED AT [address] (test wmqf=6660) [place] [address] [id number] 07:00:00 Test Item Value Reference Range Comments PHOSPHORUS (BEAKER) (test tebx=290) 1.9 mg/dL 2.3-4.7 [id number] 07:00:00 Test Item Value Reference Range Comments MAGNESIUM (BEAKER) (test dqod=357) 1.6 mg/dL 1.6-2.6 COMPREHENSIVE METABOLIC [id number] 07:00:00 Test Item Value Reference Range Comments TOTAL PROTEIN (BEAKER) 4.9 gm/dL 6.0-8.3 (test gdgp=147) ALBUMIN (BEAKER) (test 3.1 g/dL 3.5-5.0 ujcb=8608) ALKALINE PHOSPHATASE 75 U/L 40-150 (BEAKER) (test ujqs=125) BILIRUBIN TOTAL (BEAKER) 1.9 mg/dL 0.2-1.2 (test jzxm=505) SODIUM (BEAKER) (test 139 meq/L 136-145 bdnd=970) POTASSIUM (BEAKER) (test 4.3 meq/L 3.5-5.1 ngwr=601) CHLORIDE (BEAKER) (test 99 meq/L 98-107 sxub=767) CO2 (BEAKER) (test 37 meq/L 22-29 bhrq=299) BLOOD UREA NITROGEN 16 mg/dL 7-21 (BEAKER) (test ghwt=952) CREATININE (BEAKER) (test 1.29 mg/dL 0.57-1.25 vosr=445) GLUCOSE RANDOM (BEAKER) 139 mg/dL 70-105 (test drba=543) CALCIUM (BEAKER) (test 8.5 mg/dL 8.4-10.2 moru=467) AST (SGOT) (BEAKER) (test 23 U/L 5-34 gpmc=614) ALT (SGPT) (BEAKER) (test 8 U/L 6-55 gmzo=684) EGFR (BEAKER) (test 42 mL/min/1.73 sq m ESTIMATED GFR IS NOT bexy=2408) ACCURATE CREATININE CLEARANCE IN PREDICTING GLOMERULAR FILTRATION RATE. ESTIMATED GFR IS NOT APPLICABLE FOR DIALYSIS PATIENTS. Specimen slightly ictericCBC W/PLT COUNT & AUTO [id number] 06:20 :00 Test Item Value Reference Range Comments WHITE BLOOD CELL COUNT (BEAKER) (test sbon=382) 4.7 K/ L 3.5-10.5 RED BLOOD CELL COUNT (BEAKER) (test opns=845) 2.71 M/ L 3.93-5.22 HEMOGLOBIN (BEAKER) (test fipl=901) 7.5 GM/DL 11.2-15.7 HEMATOCRIT (BEAKER) (test nlqg=107) 23.9 % 34.1-44.9 MEAN CORPUSCULAR VOLUME (BEAKER) (test ulen=398) 88.2 fL 79.4-94.8 MEAN CORPUSCULAR HEMOGLOBIN (BEAKER) (test 27.7 pg 25.6-32.2 ahcq=863) MEAN CORPUSCULAR HEMOGLOBIN CONC (BEAKER) (test 31.4 GM/DL 32.2-35.5 fwst=626) RED CELL DISTRIBUTION WIDTH (BEAKER) (test 17.6 % 11.7-14.4 dwry=602) PLATELET COUNT (BEAKER) (test rcis=612) 137 K/CU MM 150-450 MEAN PLATELET VOLUME (BEAKER) (test wlpl=271) 9.6 fL 9.4-12.3 NUCLEATED RED BLOOD CELLS (BEAKER) (test 0 /100 WBC 0-0 urpr=074) NEUTROPHILS RELATIVE PERCENT (BEAKER) (test 45 % yzdn=318) LYMPHOCYTES RELATIVE PERCENT (BEAKER) (test 33 % fdks=281) MONOCYTES RELATIVE PERCENT (BEAKER) (test 12 % qrgd=675) EOSINOPHILS RELATIVE PERCENT (BEAKER) (test 9 % cnrb=727) BASOPHILS RELATIVE PERCENT (BEAKER) (test 1 % stnn=996) NEUTROPHILS ABSOLUTE COUNT (BEAKER) (test 2.13 K/ L 1.56-6.13 exyb=388) LYMPHOCYTES ABSOLUTE COUNT (BEAKER) (test 1.56 K/ L 1.18-3.74 ctcg=234) MONOCYTES ABSOLUTE COUNT (BEAKER) (test 0.57 K/ L 0.24-0.36 ybkg=219) EOSINOPHILS ABSOLUTE COUNT (BEAKER) (test 0.41 K/ L 0.04-0.36 dggv=810) BASOPHILS ABSOLUTE COUNT (BEAKER) (test 0.05 K/ L 0.01-0.08 cbhr=513) IMMATURE GRANULOCYTES-RELATIVE PERCENT (BEAKER) 0 % 0-1 (test wnrx=4654) CALCIUM, [id number] 05:29:00 Test Item Value Reference Range Comments CALCIUM IONIZED (BEAKER) (test iqit=396) 1.02 mmol/L 1.12-1.27 PH, BLOOD (BEAKER) (test asvb=2760) 7.53 POCT-GLUCOSE [id number] 22:13:00 Test Item Value Reference Range Comments POC-GLUCOSE METER (BEAKER) 315 mg/dL 70-110 Notified ALEXI ENNIS/TESTED AT [facility] (test pmvk=1127) [address] [facility] [address] POCT-GLUCOSE [id number] 18:43:00 Test Item Value Reference Range Comments POC-GLUCOSE METER (BEAKER) 204 mg/dL 70-110 TESTED AT [address] (test ywuc=9012) [facility] [address] U/S, [id number] 17:14:00Reason for exam:->ascitesFINAL REPORT Ultrasound guided paracentesis. Clinical History: Ascites. Sedation: None. Operators: This procedure was performed by SARIKA Lee under direct supervision of Akil Chung M.D. Cattle Manager: None. Estimated Blood Loss: < 1 [...] was achieved with 2% lidocaine, a 5 [place]egalese one-step catheter was advanced into the peritoneal cavity under ultrasound guidance. After completion of drainage, the catheter was removed. There was no evidence of complication. Impression:Successful ultrasound guided paracentesis. Signed: Akil Chung MDReport Verified Date/Time: 05/26/2019 17:14:25 Reading Location : [address] Ultrasound Reading Room U/S, [id number] 17:12:00Reason for exam:->ascitesFINAL REPORT Ultrasound guided paracentesis Clinical History: Ascites. Sedation: None. Protective Officer: Micheline Pena PA-C Supervising Physician: Shravan Ruiz MD Cattle Manager: None. Estimated Blood Loss: < 1 [...] anesthesia was achieved with lidocaine, a 5 Senegalese one-step catheter was advanced into theperitoneal cavity under ultrasound guidance. After completion of drainage, the catheter was removed.There was no evidence of complication. Impression:Successful ultrasound guided paracentesis. Signed:Shravan Ruiz Verified Date/Time: 05/26/2019 17:12:51 Reading Location: [address] Ultrasound Reading Room POCT-GLUCOSE [id number] 17:02: 00 Test Item Value Reference Range Comments POC-GLUCOSE METER (BEAKER) 204 mg/dL 70-110 TESTED AT [address] (test aosf=5183) [place] [address] POCT-GLUCOSE [id number] 13:52:00 Test Item Value Reference Range Comments POC-GLUCOSE METER (BEAKER) 185 mg/dL 70-110 TESTED AT [address] (test vovy=7623) [place] [address] BODY FLUID CELL COUNT WITH [id number] 13:12:00 Test Item Value Reference Range Comments APPEARANCE FLUID (BEAKER) (test iklv=990) Slightly Hazy Clear COLOR FLUID (BEAKER) (test covj=908) Yellow Colorless, Straw RBC FLUID (BEAKER) (test jozr=841) 3000 /cu mm <=1 ADJUSTED WBC FLUID (BEAKER) (test eiag=6506) 107 /cu mm <=5 LINING CELLS (BEAKER) (test dese=3970) 13 /cu mm <=1 NEUTROPHILS FLUID (BEAKER) (test oyaz=8910) 0 % LYMPHS FLUID (BEAKER) (test dnxi=045) 21 % MONO/MACROPHAGE FLUID (BEAKER) (test 78 % oiwq=947) EOSINOPHILS FLUID (BEAKER) (test rkys=968) 1 % BASO FLUID (BEAKER) (test khhq=421) 0 % CONTAINER BODY FLUID (BEAKER) (test EDTA Tube rwsl=4671) POCT-GLUCOSE [id number] 08:40:00 Test Item Value Reference Range Comments POC-GLUCOSE METER (BEAKER) 113 mg/dL 70-110 TESTED AT [address] (test irko=7570) [place] [address] [id number] 07:18:00 Test Item Value Reference Range Comments T3 TOTAL (BEAKER) (test 34 ng/dL 48-159 Performed at [facility]. Refer. hydo=717) Range:76-181 [id number] 05:45:00 Test Item Value Reference Range Comments PHOSPHORUS (BEAKER) (test kytl=814) 1.7 mg/dL 2.3-4.7 [id number] 05:45:00 Test Item Value Reference Range Comments MAGNESIUM (BEAKER) (test xmok=450) 1.8 mg/dL 1.6-2.6 COMPREHENSIVE METABOLIC [id number] 05:45:00 Test Item Value Reference Range Comments TOTAL PROTEIN (BEAKER) 5.1 gm/dL 6.0-8.3 (test jnft=440) ALBUMIN (BEAKER) (test 3.1 g/dL 3.5-5.0 fdzl=1364) ALKALINE PHOSPHATASE 88 U/L 40-150 (BEAKER) (test xeic=082) BILIRUBIN TOTAL (BEAKER) 1.6 mg/dL 0.2-1.2 (test xapg=956) SODIUM (BEAKER) (test 140 meq/L 136-145 vzjz=153) POTASSIUM (BEAKER) (test 3.8 meq/L 3.5-5.1 nlxm=953) CHLORIDE (BEAKER) (test 100 meq/L 98-107 begw=666) CO2 (BEAKER) (test 36 meq/L 22-29 dice=723) BLOOD UREA NITROGEN 16 mg/dL 7-21 (BEAKER) (test gxxy=904) CREATININE (BEAKER) (test 1.37 mg/dL 0.57-1.25 ztpb=659) GLUCOSE RANDOM (BEAKER) 159 mg/dL 70-105 (test rwgg=499) CALCIUM (BEAKER) (test 8.4 mg/dL 8.4-10.2 tgzd=621) AST (SGOT) (BEAKER) (test 26 U/L 5-34 afuc=318) ALT (SGPT) (BEAKER) (test 10 U/L 6-55 ydks=468) EGFR (BEAKER) (test 39 mL/min/1.73 sq m ESTIMATED GFR IS NOT kycb=0132) ACCURATE CREATININE CLEARANCE IN PREDICTING GLOMERULAR FILTRATION RATE. ESTIMATED GFR IS NOT APPLICABLE FOR DIALYSIS PATIENTS. CALCIUM, [id number] 05:11:00 Test Item Value Reference Range Comments CALCIUM IONIZED (BEAKER) (test mjck=491) 0.99 mmol/L 1.12-1.27 PH, BLOOD (BEAKER) (test zbrv=5953) 7.57 CBC W/PLT COUNT & AUTO [id number] 05:04:00 Test Item Value Reference Range Comments WHITE BLOOD CELL COUNT (BEAKER) (test iafv=334) 4.6 K/ L 3.5-10.5 RED BLOOD CELL COUNT (BEAKER) (test acta=784) 2.81 M/ L 3.93-5.22 HEMOGLOBIN (BEAKER) (test qxev=334) 7.8 GM/DL 11.2-15.7 HEMATOCRIT (BEAKER) (test ceqk=328) 24.6 % 34.1-44.9 MEAN CORPUSCULAR VOLUME (BEAKER) (test qoox=743) 87.5 fL 79.4-94.8 MEAN CORPUSCULAR HEMOGLOBIN (BEAKER) (test 27.8 pg 25.6-32.2 uhbe=092) MEAN CORPUSCULAR HEMOGLOBIN CONC (BEAKER) (test 31.7 GM/DL 32.2-35.5 erlq=960) RED CELL DISTRIBUTION WIDTH (BEAKER) (test 17.2 % 11.7-14.4 cucc=144) PLATELET COUNT (BEAKER) (test cwoj=392) 129 K/CU MM 150-450 MEAN PLATELET VOLUME (BEAKER) (test lpas=500) 9.0 fL 9.4-12.3 NUCLEATED RED BLOOD CELLS (BEAKER) (test 0 /100 WBC 0-0 bcnp=963) NEUTROPHILS RELATIVE PERCENT (BEAKER) (test 47 % xanl=254) LYMPHOCYTES RELATIVE PERCENT (BEAKER) (test 29 % amjr=404) MONOCYTES RELATIVE PERCENT (BEAKER) (test 13 % jshm=519) EOSINOPHILS RELATIVE PERCENT (BEAKER) (test 11 % hubj=966) BASOPHILS RELATIVE PERCENT (BEAKER) (test 1 % gach=324) NEUTROPHILS ABSOLUTE COUNT (BEAKER) (test 2.17 K/ L 1.56-6.13 goac=517) LYMPHOCYTES ABSOLUTE COUNT (BEAKER) (test 1.32 K/ L 1.18-3.74 aaaj=990) MONOCYTES ABSOLUTE COUNT (BEAKER) (test 0.58 K/ L 0.24-0.36 vlbn=309) EOSINOPHILS ABSOLUTE COUNT (BEAKER) (test 0.49 K/ L 0.04-0.36 vhmj=665) BASOPHILS ABSOLUTE COUNT (BEAKER) (test 0.06 K/ L 0.01-0.08 aqwb=803) IMMATURE GRANULOCYTES-RELATIVE PERCENT (BEAKER) 0 % 0-1 (test nhbf=4371) POCT-GLUCOSE [id number] 23:10:00 Test Item Value Reference Range Comments POC-GLUCOSE METER (BEAKER) 239 mg/dL 70-110 TESTED AT [address] (test bxgf=4685) [place] [address] [id number] 19:02:00 Test Item Value Reference Range Comments SODIUM (BEAKER) (test uiyg=927) 138 meq/L 136-145 POTASSIUM (BEAKER) (test gvrp=815) 3.7 meq/L 3.5-5.1 CHLORIDE (BEAKER) (test vwrr=353) 100 meq/L 98-107 CO2 (BEAKER) (test oomf=176) 31 meq/L 22-29 Call [phone] with resultsPOCT-GLUCOSE [id number] 16:50:00 Test Item Value Reference Range Comments POC-GLUCOSE METER (BEAKER) 203 mg/dL 70-110 TESTED AT [address] (test efcl=5039) [place] [address] POCT-GLUCOSE [id number] 12:49:00 Test Item Value Reference Range Comments POC-GLUCOSE METER (BEAKER) 219 mg/dL 70-110 TESTED AT [address] (test lpmi=5045) [place] [address] ANTI-NUCLEAR ANTIBODY (QUE)[id number] 10:03:00 Test Item Value Reference Range Comments ANTI-NUCLEAR ANTIBODY (QUE) (BEAKER) (test Negative Negative nqhy=294) Test performed by IFA method.Test performed by IFA method.POCT-GLUCOSE [id number] 08:54:00 Test Item Value Reference Range Comments POC-GLUCOSE METER (BEAKER) 125 mg/dL 70-110 TESTED AT [address] (test tnic=9280) [place] [address] BASIC METABOLIC [id number] 07:41:00 Test Item Value Reference Range Comments SODIUM (BEAKER) (test 141 meq/L 136-145 ogdf=943) POTASSIUM (BEAKER) (test 3.0 meq/L 3.5-5.1 jjgn=177) CHLORIDE (BEAKER) (test 101 meq/L 98-107 mrmm=786) CO2 (BEAKER) (test 35 meq/L 22-29 gbkq=826) BLOOD UREA NITROGEN 16 mg/dL 7-21 (BEAKER) (test yqgx=194) CREATININE (BEAKER) (test 1.31 mg/dL 0.57-1.25 xfvl=596) GLUCOSE RANDOM (BEAKER) 136 mg/dL 70-105 (test ejpg=736) CALCIUM (BEAKER) (test 7.9 mg/dL 8.4-10.2 taua=540) EGFR (BEAKER) (test 41 mL/min/1.73 sq m ESTIMATED GFR IS NOT fzqe=3709) ACCURATE CREATININE CLEARANCE IN PREDICTING GLOMERULAR FILTRATION RATE. ESTIMATED GFR IS NOT APPLICABLE FOR DIALYSIS PATIENTS. [id number] 07:32:00 Test Item Value Reference Range Comments PHOSPHORUS (BEAKER) (test ajko=527) 2.0 mg/dL 2.3-4.7 [id number] 07:32:00 Test Item Value Reference Range Comments MAGNESIUM (BEAKER) (test chhs=330) 1.6 mg/dL 1.6-2.6 HEPATIC FUNCTION [id number] 07:32:00 Test Item Value Reference Range Comments TOTAL PROTEIN (BEAKER) (test wwgj=656) 4.9 gm/dL 6.0-8.3 ALBUMIN (BEAKER) (test xxmy=5828) 3.0 g/dL 3.5-5.0 BILIRUBIN TOTAL (BEAKER) (test xdcn=823) 1.4 mg/dL 0.2-1.2 BILIRUBIN DIRECT (BEAKER) (test kgwt=573) 0.7 mg/dL 0.1-0.5 ALKALINE PHOSPHATASE (BEAKER) (test sgbt=355) 86 U/L 40-150 AST (SGOT) (BEAKER) (test vyzb=006) 25 U/L 5-34 ALT (SGPT) (BEAKER) (test swca=636) 10 U/L 6-55 CBC W/PLT COUNT & AUTO [id number] 06:11:00 Test Item Value Reference Range Comments WHITE BLOOD CELL COUNT (BEAKER) (test mnxq=240) 4.2 K/ L 3.5-10.5 RED BLOOD CELL COUNT (BEAKER) (test dcof=230) 2.68 M/ L 3.93-5.22 HEMOGLOBIN (BEAKER) (test kbqw=651) 7.4 GM/DL 11.2-15.7 HEMATOCRIT (BEAKER) (test play=269) 23.5 % 34.1-44.9 MEAN CORPUSCULAR VOLUME (BEAKER) (test msip=109) 87.7 fL 79.4-94.8 MEAN CORPUSCULAR HEMOGLOBIN (BEAKER) (test 27.6 pg 25.6-32.2 fkbu=561) MEAN CORPUSCULAR HEMOGLOBIN CONC (BEAKER) (test 31.5 GM/DL 32.2-35.5 nnqx=425) RED CELL DISTRIBUTION WIDTH (BEAKER) (test 18.2 % 11.7-14.4 mniw=485) PLATELET COUNT (BEAKER) (test qzbg=926) 140 K/CU MM 150-450 MEAN PLATELET VOLUME (BEAKER) (test scwi=336) 10.3 fL 9.4-12.3 NUCLEATED RED BLOOD CELLS (BEAKER) (test 0 /100 WBC 0-0 cxdd=630) NEUTROPHILS RELATIVE PERCENT (BEAKER) (test 44 % mpgt=128) LYMPHOCYTES RELATIVE PERCENT (BEAKER) (test 33 % cigs=454) MONOCYTES RELATIVE PERCENT (BEAKER) (test 12 % xcyi=473) EOSINOPHILS RELATIVE PERCENT (BEAKER) (test 10 % espv=414) BASOPHILS RELATIVE PERCENT (BEAKER) (test 2 % xpoa=567) NEUTROPHILS ABSOLUTE COUNT (BEAKER) (test 1.82 K/ L 1.56-6.13 zsag=225) LYMPHOCYTES ABSOLUTE COUNT (BEAKER) (test 1.36 K/ L 1.18-3.74 avjk=588) MONOCYTES ABSOLUTE COUNT (BEAKER) (test 0.48 K/ L 0.24-0.36 ebhy=684) EOSINOPHILS ABSOLUTE COUNT (BEAKER) (test 0.42 K/ L 0.04-0.36 vhag=377) BASOPHILS ABSOLUTE COUNT (BEAKER) (test 0.07 K/ L 0.01-0.08 uqaq=211) IMMATURE GRANULOCYTES-RELATIVE PERCENT (BEAKER) 0 % 0-1 (test kemk=2265) PROTHROMBIN [id number] 05:31:00 Test Item Value Reference Range Comments PROTIME (BEAKER) (test vpbs=629) 14.8 seconds 11.9-14.2 INR (BEAKER) (test byto=038) 1.2 <=5.9 Effective 04/01/2019: PT Reference Range ChangeNew: 11.9-14.2 Previous: 11.7- 14.7RECOMMENDED COUMADIN/WARFARIN INR THERAPY RANGESSTANDARD DOSE: 2.0-3.0 Includes: PROPHYLAXIS for venous thrombosis, systemic embolization; TREATMENT for venous thrombosis and/or pulmonary embolus.HIGH RISK: Target INR is2.5-3.5 for patients wiht mechanical heart valves.BLOOD [id number] 02:01:00 Test Item Value Reference Range Comments CULTURE (BEAKER) (test uavm=9877) No growth in 5 days BLOOD [id number] 02:01:00 Test Item Value Reference Range Comments CULTURE (BEAKER) (test wijb=9201) No growth in 5 days POCT-GLUCOSE [id number] 23:07:00 Test Item Value Reference Range Comments POC-GLUCOSE METER (BEAKER) 217 mg/dL 70-110 TESTED AT [address] (test fbzn=7526) [place] [id number] POCT-GLUCOSE [id number] 17:54:00 Test Item Value Reference Range Comments POC-GLUCOSE METER (BEAKER) 138 mg/dL 70-110 TESTED AT [address] (test fzsz=8345) [place] [id number] POCT-GLUCOSE [id number] 12:22:00 Test Item Value Reference Range Comments POC-GLUCOSE METER (BEAKER) 114 mg/dL 70-110 TESTED AT [address] (test rdcg=0899) [place] [id number] POCT-GLUCOSE [id number] 07:39:00 Test Item Value Reference Range Comments POC-GLUCOSE METER (BEAKER) 124 mg/dL 70-110 TESTED AT [address] (test baty=8890) [place] [id number] HEPATIC FUNCTION [id number] 05:49:00 Test Item Value Reference Range Comments TOTAL PROTEIN (BEAKER) (test tcbe=728) 5.1 gm/dL 6.0-8.3 ALBUMIN (BEAKER) (test jqqc=2690) 2.9 g/dL 3.5-5.0 BILIRUBIN TOTAL (BEAKER) (test vcum=144) 1.3 mg/dL 0.2-1.2 BILIRUBIN DIRECT (BEAKER) (test saqp=568) 0.7 mg/dL 0.1-0.5 ALKALINE PHOSPHATASE (BEAKER) (test nepd=982) 91 U/L 40-150 AST (SGOT) (BEAKER) (test aoea=379) 30 U/L 5-34 ALT (SGPT) (BEAKER) (test fxsf=743) 10 U/L 6-55 BASIC METABOLIC [id number] 05:49:00 Test Item Value Reference Range Comments SODIUM (BEAKER) (test 140 meq/L 136-145 orrb=509) POTASSIUM (BEAKER) (test 3.2 meq/L 3.5-5.1 ccyk=030) CHLORIDE (BEAKER) (test 103 meq/L 98-107 lenz=632) CO2 (BEAKER) (test 27 meq/L 22-29 vwno=765) BLOOD UREA NITROGEN 17 mg/dL 7-21 (BEAKER) (test gbut=131) CREATININE (BEAKER) (test 1.30 mg/dL 0.57-1.25 lcgt=607) GLUCOSE RANDOM (BEAKER) 143 mg/dL 70-105 (test zrlu=621) CALCIUM (BEAKER) (test 7.9 mg/dL 8.4-10.2 zaxk=510) EGFR (BEAKER) (test 42 mL/min/1.73 sq m ESTIMATED GFR IS NOT trrm=7296) ACCURATE CREATININE CLEARANCE IN PREDICTING GLOMERULAR FILTRATION RATE. ESTIMATED GFR IS NOT APPLICABLE FOR DIALYSIS PATIENTS. PROTHROMBIN [id number] 05:32:00 Test Item Value Reference Range Comments PROTIME (BEAKER) (test wxfg=615) 14.7 seconds 11.9-14.2 INR (BEAKER) (test szoa=271) 1.2 <=5.9 Effective 04/01/2019: PT Reference Range ChangeNew: 11.9-14.2 Previous: 11.7- 14.7RECOMMENDED COUMADIN/WARFARIN INR THERAPY RANGESSTANDARD DOSE: 2.0-3.0 Includes: PROPHYLAXIS for venous thrombosis, systemic embolization; TREATMENT for venous thrombosis and/or pulmonary embolus.HIGH RISK: Target INR is2.5-3.5 for patients wiht mechanical heart valves.CBC W/PLT COUNT & AUTO [id number] 05:09:00 Test Item Value Reference Range Comments WHITE BLOOD CELL COUNT (BEAKER) (test lfee=420) 4.7 K/ L 3.5-10.5 RED BLOOD CELL COUNT (BEAKER) (test tpxx=127) 2.86 M/ L 3.93-5.22 HEMOGLOBIN (BEAKER) (test mukn=180) 7.9 GM/DL 11.2-15.7 HEMATOCRIT (BEAKER) (test oqwx=015) 25.3 % 34.1-44.9 MEAN CORPUSCULAR VOLUME (BEAKER) (test vaco=052) 88.5 fL 79.4-94.8 MEAN CORPUSCULAR HEMOGLOBIN (BEAKER) (test 27.6 pg 25.6-32.2 uioo=922) MEAN CORPUSCULAR HEMOGLOBIN CONC (BEAKER) (test 31.2 GM/DL 32.2-35.5 rnzr=449) RED CELL DISTRIBUTION WIDTH (BEAKER) (test 17.4 % 11.7-14.4 zvmd=959) PLATELET COUNT (BEAKER) (test vieh=861) 141 K/CU MM 150-450 MEAN PLATELET VOLUME (BEAKER) (test qros=004) 9.3 fL 9.4-12.3 NUCLEATED RED BLOOD CELLS (BEAKER) (test 0 /100 WBC 0-0 ehlq=530) NEUTROPHILS RELATIVE PERCENT (BEAKER) (test 50 % wmwd=710) LYMPHOCYTES RELATIVE PERCENT (BEAKER) (test 28 % jgsh=380) MONOCYTES RELATIVE PERCENT (BEAKER) (test 11 % fndk=117) EOSINOPHILS RELATIVE PERCENT (BEAKER) (test 10 % pjlb=059) BASOPHILS RELATIVE PERCENT (BEAKER) (test 1 % zvva=188) NEUTROPHILS ABSOLUTE COUNT (BEAKER) (test 2.33 K/ L 1.56-6.13 oyxt=018) LYMPHOCYTES ABSOLUTE COUNT (BEAKER) (test 1.31 K/ L 1.18-3.74 cjyp=426) MONOCYTES ABSOLUTE COUNT (BEAKER) (test 0.51 K/ L 0.24-0.36 ijld=761) EOSINOPHILS ABSOLUTE COUNT (BEAKER) (test 0.46 K/ L 0.04-0.36 qvwu=215) BASOPHILS ABSOLUTE COUNT (BEAKER) (test 0.06 K/ L 0.01-0.08 abek=302) IMMATURE GRANULOCYTES-RELATIVE PERCENT (BEAKER) 0 % 0-1 (test spep=1373) BLOOD GAS, [id number] 22:21:00 Test Item Value Reference Range Comments PH ARTERIAL (BEAKER) (test rkco=709) 7.49 7.35-7.45 PCO2 ARTERIAL (BEAKER) (test wwgh=335) 43 mmHg 35-45 PO2 ARTERIAL (BEAKER) (test jdhj=740) 56 mmHg 80-90 O2 SATURATION ARTERIAL (BEAKER) (test aonb=836) 92.5 % 96.0-97.0 HCO3 ARTERIAL (BEAKER) (test rwsv=326) 32 mmol/L 21-29 BASE EXCESS ARTERIAL (BEAKER) (test qvnr=568) 7.9 mmol/L -2.0-3.0 PATIENT TEMPERATURE (BEAKER) (test bqsm=1360) 35.8 C FIO2 (BEAKER) (test crwy=5931) 21.0 % POCT-GLUCOSE [id number] 21:14:00 Test Item Value Reference Range Comments POC-GLUCOSE METER (BEAKER) 259 mg/dL 70-110 TESTED AT [address] (test ukgi=2857) [place] [address] BODY FLUID CULTURE + GRAM [id number] 18:00:00 Test Item Value Reference Range Comments CULTURE (BEAKER) (test mrts=5988) No growth GRAM STAIN RESULT (BEAKER) (test No WBCs biwq=5811) GRAM STAIN RESULT (BEAKER) (test No organisms seen rwrp=56783) POCT-GLUCOSE [id number] 17:23:00 Test Item Value Reference Range Comments POC-GLUCOSE METER (BEAKER) 201 mg/dL 70-110 TESTED AT [address] (test oyae=7467) [place] [address] RAD, MANDIBLE, MIN 4 [id number] 15:00:00Reason for exam:->liver transplant evalShould this be [...] Martinez MDReport Verified Date/Time: 05/23/201915:00:10 Reading Location: [address] Transitional Reading Room CRYPTOCOCCAL [id number] 14:59:00 Test Item Value Reference Range Comments CRYPTOCOCCAL ANTIGEN, SERUM (BEAKER) (test Negative Negative, Interference bepu=0574) [id number] 14:45:00 Test Item Value Reference Range Comments RPR SCREEN (BEAKER) (test joab=666) Nonreactive Nonreactive CYTOMEGALOVIRUS ANTIBODY, [id number] 13:48:00 Test Item Value Reference Range Comments CYTOMEGALOVIRUS, IGG (BEAKER) (test yuqk=2216) Positive Negative, Equivocal CMV IgG Result Interpretation: </=0.8 Al Negative 0.9-1.0 Al Equivocal &gt ;/=1.1 Al PositiveCYTOMEGALOVIRUS ANTIBODY, [id number] 13:48:00 Test Item Value Reference Range Comments CYTOMEGALOVIRUS IGM ANTIBODY (BEAKER) (test Negative Negative, Equivocal xqmz=8920) CMV IgM Result Interpretation: </=0.8 Al Negative 0.9-1.0 Al Equivocal >/=1.1 Al PositiveEBV ANTIBODY, [id number] 13:48:00 Test Item Value Reference Range Comments BERTRAND BOLES VIRAL CAPSID ANTIGEN IGG (BEAKER) Positive Negative, Equivocal (test kesx=1500) Bertrand Boles Viral Capsid Antigen IgG Result Interpretation: </=0.8 Al Negative 0.9-1.0 Al Equivocal >/=1.1 Al PositiveEBV ANTIBODY, [id number] 13:48:00 Test Item Value Reference Range Comments BERTRAND BOLES VIRAL CAPSID ANTIGEN IGM (BEAKER) Negative Negative, Equivocal (test hkwm=0912) Bertrand Boles Viral Capsid Antigen IgM Result Interpretation: </=0.8 Al Negative 0.9-1.0 Al Equivocal >/=1.1 Al PositiveVARICELLA ZOSTER ANTIBODY , [id number] 13:48:00 Test Item Value Reference Range Comments VARICELLA ZOSTER IGG (AL) (BEAKER) (test xrkh=7383) 0.9 VARICELLA ZOSTER RESULT INTERPRETATIONS: <=0.8 Al Nonreactive: Presumed non-immune to VZV 0.9-1.0 Al Equivocal >=1.1 Al Reactive: Presumed immune to VZVRUBELLA ANTIBODY, [id number] 13:48:00 Test Item Value Reference Range Comments RUBELLA IGG QUANTITATION (AKER) (test uyfl=545) 12.0 IU/mL <8.0 Rubella IgG Result Interpretation: </=7.0 IU/mL Negative - Presumed non- immune 8.0 - 9.9 IU/mL Equivocal >=10.0 IU/mL Positive - Presumed immunePOCT-GLUCOSE [id number] 11:41:00 Test Item Value Reference Range Comments POC-GLUCOSE METER (BEAKER) 162 mg/dL 70-110 TESTED AT [address] (test wwvk=4491) [facility] [address] POCT-GLUCOSE [id number] 10:06:00 Test Item Value Reference Range Comments POC-GLUCOSE METER (BEAKER) 95 mg/dL 70-110 TESTED AT [address] (test eryg=6375) [place] [id number] IRON, TIBC, % SAT. (WITHOUT FERRITIN)2019-05-23 07:32:00 Test Item Value Reference Range Comments IRON (BEAKER) (test nviv=476) 30.0 ug/dL 40.0-160.0 TOTAL IRON BINDING CAPACITY (BEAKER) (test 143 ug/dL 250-450 ierd=170) IRON % SATURATION (2) (BEAKER) (test toip=6938) 21 % 20-55 [id number] 06:29:00 Test Item Value Reference Range Comments PHOSPHORUS (BEAKER) (test haer=271) 1.9 mg/dL 2.3-4.7 [id number] 06:29:00 Test Item Value Reference Range Comments MAGNESIUM (BEAKER) (test ubsf=099) 1.5 mg/dL 1.6-2.6 HEPATIC FUNCTION [id number] 06:29:00 Test Item Value Reference Range Comments TOTAL PROTEIN (BEAKER) (test xxfo=569) 5.2 gm/dL 6.0-8.3 ALBUMIN (BEAKER) (test oyrn=3298) 3.0 g/dL 3.5-5.0 BILIRUBIN TOTAL (BEAKER) (test gque=197) 1.6 mg/dL 0.2-1.2 BILIRUBIN DIRECT (BEAKER) (test cpxv=564) 0.8 mg/dL 0.1-0.5 ALKALINE PHOSPHATASE (BEAKER) (test iktz=729) 87 U/L 40-150 AST (SGOT) (BEAKER) (test ngls=728) 24 U/L 5-34 ALT (SGPT) (BEAKER) (test kyuv=297) 11 U/L 6-55 COMPREHENSIVE METABOLIC [id number] 06:29:00 Test Item Value Reference Range Comments TOTAL PROTEIN (BEAKER) 5.2 gm/dL 6.0-8.3 (test nsbc=280) ALBUMIN (BEAKER) (test 3.0 g/dL 3.5-5.0 vfka=8833) ALKALINE PHOSPHATASE 87 U/L 40-150 (BEAKER) (test gwwi=324) BILIRUBIN TOTAL (BEAKER) 1.6 mg/dL 0.2-1.2 (test yvhz=601) SODIUM (BEAKER) (test 139 meq/L 136-145 zfng=655) POTASSIUM (BEAKER) (test 3.3 meq/L 3.5-5.1 usvn=823) CHLORIDE (BEAKER) (test 104 meq/L 98-107 eyjv=600) CO2 (BEAKER) (test 30 meq/L 22-29 cgvg=629) BLOOD UREA NITROGEN 18 mg/dL 7-21 (BEAKER) (test moaj=552) CREATININE (BEAKER) (test 1.41 mg/dL 0.57-1.25 jeqg=825) GLUCOSE RANDOM (BEAKER) 102 mg/dL 70-105 (test zdgr=598) CALCIUM (BEAKER) (test 8.1 mg/dL 8.4-10.2 onui=280) AST (SGOT) (BEAKER) (test 24 U/L 5-34 weec=487) ALT (SGPT) (BEAKER) (test 11 U/L 6-55 ztlo=551) EGFR (BEAKER) (test 38 mL/min/1.73 sq m ESTIMATED GFR IS NOT yadk=0744) ACCURATE CREATININE CLEARANCE IN PREDICTING GLOMERULAR FILTRATION RATE. ESTIMATED GFR IS NOT APPLICABLE FOR DIALYSIS PATIENTS. CBC W/PLT COUNT & AUTO [id number] 05:46:00 Test Item Value Reference Range Comments WHITE BLOOD CELL COUNT (BEAKER) (test rzox=217) 4.9 K/ L 3.5-10.5 RED BLOOD CELL COUNT (BEAKER) (test fona=696) 2.83 M/ L 3.93-5.22 HEMOGLOBIN (BEAKER) (test boxh=798) 8.0 GM/DL 11.2-15.7 HEMATOCRIT (BEAKER) (test nznf=557) 24.4 % 34.1-44.9 MEAN CORPUSCULAR VOLUME (BEAKER) (test midv=499) 86.2 fL 79.4-94.8 MEAN CORPUSCULAR HEMOGLOBIN (BEAKER) (test 28.3 pg 25.6-32.2 gubo=147) MEAN CORPUSCULAR HEMOGLOBIN CONC (BEAKER) (test 32.8 GM/DL 32.2-35.5 msxd=534) RED CELL DISTRIBUTION WIDTH (BEAKER) (test 17.6 % 11.7-14.4 qjjg=619) PLATELET COUNT (BEAKER) (test rpxl=884) 147 K/CU MM 150-450 MEAN PLATELET VOLUME (BEAKER) (test bdgl=377) 9.1 fL 9.4-12.3 NUCLEATED RED BLOOD CELLS (BEAKER) (test 0 /100 WBC 0-0 ndze=062) NEUTROPHILS RELATIVE PERCENT (BEAKER) (test 51 % rblv=901) LYMPHOCYTES RELATIVE PERCENT (BEAKER) (test 27 % kxjd=030) MONOCYTES RELATIVE PERCENT (BEAKER) (test 11 % gtgx=684) EOSINOPHILS RELATIVE PERCENT (BEAKER) (test 10 % blhx=368) BASOPHILS RELATIVE PERCENT (BEAKER) (test 1 % tlgs=814) NEUTROPHILS ABSOLUTE COUNT (BEAKER) (test 2.51 K/ L 1.56-6.13 rsfg=579) LYMPHOCYTES ABSOLUTE COUNT (BEAKER) (test 1.30 K/ L 1.18-3.74 wvsl=239) MONOCYTES ABSOLUTE COUNT (BEAKER) (test 0.54 K/ L 0.24-0.36 tknf=361) EOSINOPHILS ABSOLUTE COUNT (BEAKER) (test 0.48 K/ L 0.04-0.36 zror=171) BASOPHILS ABSOLUTE COUNT (BEAKER) (test 0.06 K/ L 0.01-0.08 kqyn=762) IMMATURE GRANULOCYTES-RELATIVE PERCENT (BEAKER) 0 % 0-1 (test rmfi=8091) PROTHROMBIN TIME/[id number] 05:46:00 Test Item Value Reference Range Comments PROTIME (BEAKER) (test jdno=097) 14.9 seconds 11.9-14.2 INR (BEAKER) (test gltp=143) 1.2 <=5.9 Effective 04/01/2019: PT Reference Range ChangeNew: 11.9-14.2 Previous: 11.7- 14.7RECOMMENDED COUMADIN/WARFARIN INR THERAPY RANGESSTANDARD DOSE: 2.0-3.0 Includes: PROPHYLAXIS for venous thrombosis, systemic embolization; TREATMENT for venous thrombosis and/or pulmonary embolus.HIGH RISK: Target INR is2.5-3.5 for patients wiht mechanical heart valves.CALCIUM, [id number] 05:44:00 Test Item Value Reference Range Comments CALCIUM IONIZED (BEAKER) (test kgmr=921) 0.99 mmol/L 1.12-1.27 PH, BLOOD (BEAKER) (test ziwy=8061) 7.48 HEMOGLOBIN [id number] 22:07:00 Test Item Value Reference Range Comments HEMOGLOBIN A1C (BEAKER) (test ruke=811) 8.1 % 4.3-6.1 POCT-GLUCOSE [id number] 21:38:00 Test Item Value Reference Range Comments POC-GLUCOSE METER (BEAKER) 213 mg/dL 70-110 TESTED AT [address] (test vtnc=3279) [facility] [address] POCT-GLUCOSE [id number] 18:07:00 Test Item Value Reference Range Comments POC-GLUCOSE METER (BEAKER) 212 mg/dL 70-110 TESTED AT [address] (test znhf=6342) [facility] [address] ALPHA FETOPROTEIN (AFP), TUMOR [id number] 17:50:00 Test Item Value Reference Range Comments ALPHA-FETOPROTEIN (BEAKER) (test ytdq=8332) < ng/mL <10.0 HEPATITIS C [id number] 17:49:00 Test Item Value Reference Range Comments HEPATITIS C ANTIBODY (BEAKER) (test djwo=249) Nonreactive Nonreactive VITAMIN D, [id number] 15:10:00 Test Item Value Reference Range Comments VITAMIN D 25-OH (BEAKER) (test capb=6767) < ng/mL 6.6-49.9 Effective 08/14/2017: Reference Range ChangeNew: 6.6-49.9 ng/mL Previous: 13.0 -47.8 ng/mLRecommended Vitamin D Target Range: 30.0-40.0 ng/mLHEPATITIS B SURFACE [id number] 15:10:00 Test Item Value Reference Range Comments HEPATITIS B SURFACE ANTIBODY (BEAKER) (test < mIU/mL <8.0 ejqu=686) CARCINOEMBRYONIC ANTIGEN (CEA)2019-05-22 15:10:00 Test Item Value Reference Range Comments CARCINOEMBRYONIC ANTIGEN (BEAKER) (test aidc=954) < ng/mL 0.0-5.0 HEPATITIS B CORE ANTIBODY, [id number] 15:08:00 Test Item Value Reference Range Comments HEPATITIS B CORE IGM ANTIBODY (BEAKER) (test Nonreactive Nonreactive qqge=191) HEPATITIS A ANTIBODY, [id number] 15:08:00 Test Item Value Reference Range Comments HEPATITIS A IGM ANTIBODY (BEAKER) (test Nonreactive Nonreactive wqzd=646) HEPATITIS A ANTIBODY, [id number] 15:08:00 Test Item Value Reference Range Comments HEPATITIS A IGG ANTIBODY (BEAKER) (test Nonreactive Nonreactive ifwj=3884) HEPATITIS B SURFACE [id number] 15:05:00 Test Item Value Reference Range Comments HEPATITIS B SURFACE ANTIGEN (2) (BEAKER) (test Nonreactive Nonreactive piet=4671) HEPATITIS B CORE ANTIBODY, [id number] 15:05:00 Test Item Value Reference Range Comments HEPATITIS B CORE TOTAL ANTIBODY (BEAKER) (test Nonreactive Nonreactive pfpx=005) HIV-1 ANTIGEN WITH HIV-1/2 [id number] 15:05:00 Test Item Value Reference Range Comments HIV-1 ANTIGEN WITH HIV 1\\T\\2 ANTIBODY (2) Nonreactive Nonreactive (BEAKER) (test gsdc=3919) URIC [id number] 14:46:00 Test Item Value Reference Range Comments URIC ACID (BEAKER) (test azvr=561) 5.7 mg/dL 2.6-7.2 LIPID [id number] 14:46:00 Test Item Value Reference Range Comments TRIGLYCERIDES (BEAKER) (test vyoa=446) 71 mg/dL CHOLESTEROL (BEAKER) (test jzqb=932) 72 mg/dL HDL CHOLESTEROL (BEAKER) (test ghaj=241) 20 mg/dL LDL CHOLESTEROL CALCULATED (BEAKER) (test xinq=934) 38 mg/dL Triglyceride Reference Range: Low Risk <150 Borderline 150- 199 High Risk 200-499 Very High Risk >=500Cholesterol Reference Range: Low Risk <200 Borderline 200-239 High Risk > 240HDL Cholesterol Reference Range: Low Risk >=60 High Risk <40LDL Cholesterol Reference Range: Optimal <100 Near Optimal 100-129 Borderline 130-159 High 160-189 Very High >=190BILIRUBIN, [id number] 14:46:00 Test Item Value Reference Range Comments BILIRUBIN DIRECT (BEAKER) (test ynfq=716) 0.8 mg/dL 0.1-0.5 GAMMA GLUTAMYL TRANSFERASE (GGT)2019-05-22 14:46:00 Test Item Value Reference Range Comments GAMMA GLUTAMYL TRANSFERASE (BEAKER) (test flwb=003) 10 U/L 9-64 [id number] 14:45:00 Test Item Value Reference Range Comments ETHANOL (BEAKER) (test bnwu=729) < mg/dL <=10 [id number] 14:44:00 Test Item Value Reference Range Comments TRANSFERRIN (BEAKER) (test hmom=492) 109 mg/dL 174-382 IRON, TIBC, % SAT. (WITHOUT FERRITIN)2019-05-22 14:44:00 Test Item Value Reference Range Comments IRON (BEAKER) (test ithy=338) 40.0 ug/dL 40.0-160.0 TOTAL IRON BINDING CAPACITY (BEAKER) (test 136 ug/dL 250-450 iior=307) IRON % SATURATION (2) (BEAKER) (test igvn=6867) 29 % 20-55 [id number] 14:34:00 Test Item Value Reference Range Comments PARTIAL THROMBOPLASTIN TIME (DAKOTAH) (test 35.7 seconds 22.5-36.0 wtog=960) [id number] 14:33:00 Test Item Value Reference Range Comments FIBRINOGEN LEVEL (DAKOTAH) (test tisc=875) 282 mg/dl 225-434 U/S, ABDOMINAL, WITH [id number] 14:09:00Reason for exam:->TIPS evaluationFINAL REPORT Ultrasound of [...] MDReport Verified Date/Time: 05/22/2019 14:09:52 Reading Location: [address] Radiology Reading Room Electronically signed by: MISSY MOMIN M.D. on 2018 02:09 PMPOCT-GLUCOSE [id number] 12:31:00 Test Item Value Reference Range Comments POC-GLUCOSE METER (BEAKER) 252 mg/dL 70-110 TESTED AT [facility] [address] [facility] (test yyki=4089) [facility] [address] COMPREHENSIVE METABOLIC [id number] 08:22:00 Test Item Value Reference Range Comments TOTAL PROTEIN (BEAKER) 4.8 gm/dL 6.0-8.3 (test cjhb=122) ALBUMIN (BEAKER) (test 3.0 g/dL 3.5-5.0 wiaq=4087) ALKALINE PHOSPHATASE 77 U/L 40-150 (BEAKER) (test fize=810) BILIRUBIN TOTAL (BEAKER) 1.6 mg/dL 0.2-1.2 (test qdip=631) SODIUM (BEAKER) (test 141 meq/L 136-145 ujue=029) POTASSIUM (BEAKER) (test 3.1 meq/L 3.5-5.1 yptr=601) CHLORIDE (BEAKER) (test 105 meq/L 98-107 urnu=510) CO2 (BEAKER) (test 31 meq/L 22-29 hrqb=448) BLOOD UREA NITROGEN 18 mg/dL 7-21 (BEAKER) (test pwox=821) CREATININE (BEAKER) (test 1.50 mg/dL 0.57-1.25 qupb=465) GLUCOSE RANDOM (BEAKER) 145 mg/dL 70-105 (test rkar=109) CALCIUM (BEAKER) (test 7.9 mg/dL 8.4-10.2 zmct=584) AST (SGOT) (BEAKER) (test 23 U/L 5-34 lpzy=049) ALT (SGPT) (BEAKER) (test 7 U/L 6-55 jlce=833) EGFR (BEAKER) (test 35 mL/min/1.73 sq m ESTIMATED GFR IS NOT uftj=5798) ACCURATE CREATININE CLEARANCE IN PREDICTING GLOMERULAR FILTRATION RATE. ESTIMATED GFR IS NOT APPLICABLE FOR DIALYSIS PATIENTS. [id number] 08:19:00 Test Item Value Reference Range Comments PHOSPHORUS (BEAKER) (test oajh=174) 2.2 mg/dL 2.3-4.7 [id number] 08:19:00 Test Item Value Reference Range Comments MAGNESIUM (BEAKER) (test nxdh=124) 1.5 mg/dL 1.6-2.6 HEPATIC FUNCTION [id number] 08:19:00 Test Item Value Reference Range Comments TOTAL PROTEIN (BEAKER) (test cury=541) 4.8 gm/dL 6.0-8.3 ALBUMIN (BEAKER) (test cthr=2301) 3.0 g/dL 3.5-5.0 BILIRUBIN TOTAL (BEAKER) (test djvc=061) 1.6 mg/dL 0.2-1.2 BILIRUBIN DIRECT (BEAKER) (test pnxv=261) 0.7 mg/dL 0.1-0.5 ALKALINE PHOSPHATASE (BEAKER) (test hecz=879) 77 U/L 40-150 AST (SGOT) (BEAKER) (test abmm=174) 23 U/L 5-34 ALT (SGPT) (BEAKER) (test vmmd=148) 7 U/L 6-55 POCT-GLUCOSE [id number] 08:08:00 Test Item Value Reference Range Comments POC-GLUCOSE METER (BEAKER) 154 mg/dL 70-110 TESTED AT [facility] [address] [place] [address] (test qlmj=0581) [facility] [address] B-TYPE NATRIURETIC FACTOR (BNP)2019-05-22 06:18:00 Test Item Value Reference Range Comments B-TYPE NATRIURETIC PEPTIDE (BEAKER) (test 411 pg/mL 0-100 kcec=830) PROTHROMBIN [id number] 06:00:00 Test Item Value Reference Range Comments PROTIME (BEAKER) (test dgsa=727) 14.9 seconds 11.9-14.2 INR (BEAKER) (test bwzf=586) 1.2 <=5.9 Effective 04/01/2019: PT Reference Range ChangeNew: 11.9-14.2 Previous: 11.7- 14.7RECOMMENDED COUMADIN/WARFARIN INR THERAPY RANGESSTANDARD DOSE: 2.0-3.0 Includes: PROPHYLAXIS for venous thrombosis, systemic embolization; TREATMENT for venous thrombosis and/or pulmonary embolus.HIGH RISK: Target INR is2.5-3.5 for patients wiht mechanical heart valves.CALCIUM, [id number] 05:48:00 Test Item Value Reference Range Comments CALCIUM IONIZED (BEAKER) (test posr=310) 1.04 mmol/L 1.12-1.27 PH, BLOOD (BEAKER) (test nrik=5469) 7.40 CBC W/PLT COUNT & AUTO [id number] 05:45:00 Test Item Value Reference Range Comments WHITE BLOOD CELL COUNT (BEAKER) (test teib=600) 4.1 K/ L 3.5-10.5 RED BLOOD CELL COUNT (BEAKER) (test xpuw=798) 2.71 M/ L 3.93-5.22 HEMOGLOBIN (BEAKER) (test ifgg=920) 7.4 GM/DL 11.2-15.7 HEMATOCRIT (BEAKER) (test vmes=086) 23.6 % 34.1-44.9 MEAN CORPUSCULAR VOLUME (BEAKER) (test akxm=671) 87.1 fL 79.4-94.8 MEAN CORPUSCULAR HEMOGLOBIN (BEAKER) (test 27.3 pg 25.6-32.2 xwcd=029) MEAN CORPUSCULAR HEMOGLOBIN CONC (BEAKER) (test 31.4 GM/DL 32.2-35.5 rere=568) RED CELL DISTRIBUTION WIDTH (BEAKER) (test 17.2 % 11.7-14.4 xkfh=993) PLATELET COUNT (BEAKER) (test dvui=825) 126 K/CU MM 150-450 MEAN PLATELET VOLUME (BEAKER) (test xcop=139) 9.2 fL 9.4-12.3 NUCLEATED RED BLOOD CELLS (BEAKER) (test 0 /100 WBC 0-0 rvfa=852) NEUTROPHILS RELATIVE PERCENT (BEAKER) (test 49 % owti=359) LYMPHOCYTES RELATIVE PERCENT (BEAKER) (test 29 % ztsv=939) MONOCYTES RELATIVE PERCENT (BEAKER) (test 12 % mbic=171) EOSINOPHILS RELATIVE PERCENT (BEAKER) (test 8 % ildl=001) BASOPHILS RELATIVE PERCENT (BEAKER) (test 1 % tsaz=776) NEUTROPHILS ABSOLUTE COUNT (BEAKER) (test 2.03 K/ L 1.56-6.13 gpnv=988) LYMPHOCYTES ABSOLUTE COUNT (BEAKER) (test 1.21 K/ L 1.18-3.74 fifp=362) MONOCYTES ABSOLUTE COUNT (BEAKER) (test 0.51 K/ L 0.24-0.36 tswq=435) EOSINOPHILS ABSOLUTE COUNT (BEAKER) (test 0.34 K/ L 0.04-0.36 ehhr=069) BASOPHILS ABSOLUTE COUNT (BEAKER) (test 0.04 K/ L 0.01-0.08 fzfa=990) IMMATURE GRANULOCYTES-RELATIVE PERCENT (BEAKER) 0 % 0-1 (test vryv=6977) POCT-GLUCOSE [id number] 21:52:00 Test Item Value Reference Range Comments POC-GLUCOSE METER (BEAKER) 241 mg/dL 70-110 TESTED AT [address] (test ozhb=6953) [place] [id number] POCT-GLUCOSE [id number] 17:36:00 Test Item Value Reference Range Comments POC-GLUCOSE METER (BEAKER) 291 mg/dL 70-110 TESTED AT [address] (test mwyo=2897) [place] [id number] BODY FLUID CELL COUNT WITH [id number] 13:52:00 Test Item Value Reference Range Comments APPEARANCE FLUID (BEAKER) (test gynk=600) Clear Clear COLOR FLUID (BEAKER) (test gsps=252) Yellow Colorless, Straw RBC FLUID (BEAKER) (test cynr=985) 1815 /cu mm <=1 ADJUSTED WBC FLUID (BEAKER) (test lyow=5468) 79 /cu mm <=5 LINING CELLS (BEAKER) (test sajw=4511) 14 /cu mm <=1 NEUTROPHILS FLUID (BEAKER) (test chex=3637) 0 % LYMPHS FLUID (BEAKER) (test vwod=001) 25 % MONO/MACROPHAGE FLUID (BEAKER) (test jybp=219) 74 % EOSINOPHILS FLUID (BEAKER) (test fwhg=599) 1 % BASO FLUID (BEAKER) (test zuei=498) 0 % CONTAINER BODY FLUID (BEAKER) (test pdng=5764) EDTA Tube HEMOGLOBIN [id number] 13:47:00 Test Item Value Reference Range Comments HEMOGLOBIN A1C (BEAKER) (test ccjl=629) 8.4 % 4.3-6.1 POCT-GLUCOSE [id number] 11:56:00 Test Item Value Reference Range Comments POC-GLUCOSE METER (BEAKER) 223 mg/dL 70-110 TESTED AT [facility] [address] [facility] (test vhiu=4427) [facility] [address] POCT-GLUCOSE [id number] 08:31:00 Test Item Value Reference Range Comments POC-GLUCOSE METER (BEAKER) 257 mg/dL 70-110 TESTED AT [facility] [address] [facility] (test gunr=7839) [facility] [address] T4, [id number] 08:29:00 Test Item Value Reference Range Comments FREE T4 (BEAKER) (test slzl=366) 0.41 ng/dL 0.70-1.48 BASIC METABOLIC [id number] 08:28:00 Test Item Value Reference Range Comments SODIUM (BEAKER) (test 136 meq/L 136-145 azgj=141) POTASSIUM (BEAKER) (test 3.4 meq/L 3.5-5.1 xyla=947) CHLORIDE (BEAKER) (test 104 meq/L 98-107 paex=394) CO2 (BEAKER) (test 27 meq/L 22-29 rexb=144) BLOOD UREA NITROGEN 18 mg/dL 7-21 (BEAKER) (test rcwt=015) CREATININE (BEAKER) (test 1.57 mg/dL 0.57-1.25 jvmp=821) GLUCOSE RANDOM (BEAKER) 235 mg/dL 70-105 (test yygx=545) CALCIUM (BEAKER) (test 7.8 mg/dL 8.4-10.2 mpsg=939) EGFR (BEAKER) (test 33 mL/min/1.73 sq m ESTIMATED GFR IS NOT nnig=3378) ACCURATE CREATININE CLEARANCE IN PREDICTING GLOMERULAR FILTRATION RATE. ESTIMATED GFR IS NOT APPLICABLE FOR DIALYSIS PATIENTS. Specimen slightly [id number] 08:14:00 Test Item Value Reference Range Comments PHOSPHORUS (BEAKER) (test ekyp=705) 2.4 mg/dL 2.3-4.7 [id number] 08:14:00 Test Item Value Reference Range Comments MAGNESIUM (BEAKER) (test qfht=247) 1.5 mg/dL 1.6-2.6 HEPATIC FUNCTION [id number] 08:14:00 Test Item Value Reference Range Comments TOTAL PROTEIN (BEAKER) (test pfzk=365) 5.1 gm/dL 6.0-8.3 ALBUMIN (BEAKER) (test gudt=2696) 2.5 g/dL 3.5-5.0 BILIRUBIN TOTAL (BEAKER) (test xfja=212) 1.3 mg/dL 0.2-1.2 BILIRUBIN DIRECT (BEAKER) (test ivkk=095) 0.7 mg/dL 0.1-0.5 ALKALINE PHOSPHATASE (BEAKER) (test vhct=875) 107 U/L 40-150 AST (SGOT) (BEAKER) (test nrck=436) 27 U/L 5-34 ALT (SGPT) (BEAKER) (test utgg=852) 11 U/L 6-55 Specimen slightly ictericTSH/FREE T4 IF [id number] 07:00:00 Test Item Value Reference Range Comments THYROID STIMULATING HORMONE (BEAKER) (test 59.61 uIU/mL 0.35-4.94 xbou=937) PROTHROMBIN [id number] 05:56:00 Test Item Value Reference Range Comments PROTIME (BEAKER) (test ruvy=234) 14.3 seconds 11.9-14.2 INR (BEAKER) (test gool=053) 1.2 <=5.9 Effective 04/01/2019: PT Reference Range ChangeNew: 11.9-14.2 Previous: 11.7- 14.7RECOMMENDED COUMADIN/WARFARIN INR THERAPY RANGESSTANDARD DOSE: 2.0-3.0 Includes: PROPHYLAXIS for venous thrombosis, systemic embolization; TREATMENT for venous thrombosis and/or pulmonary embolus.HIGH RISK: Target INR is2.5-3.5 for patients wiht mechanical heart valves.CALCIUM, [id number] 05:43:00 Test Item Value Reference Range Comments CALCIUM IONIZED (BEAKER) (test zhnz=822) 0.97 mmol/L 1.12-1.27 PH, BLOOD (BEAKER) (test icfk=1474) 7.45 CBC W/PLT COUNT & AUTO [id number] 05:21:00 Test Item Value Reference Range Comments WHITE BLOOD CELL COUNT (BEAKER) (test fjgg=709) 5.5 K/ L 3.5-10.5 RED BLOOD CELL COUNT (BEAKER) (test clhh=939) 3.06 M/ L 3.93-5.22 HEMOGLOBIN (BEAKER) (test pqug=818) 8.3 GM/DL 11.2-15.7 HEMATOCRIT (BEAKER) (test cjjt=280) 26.3 % 34.1-44.9 MEAN CORPUSCULAR VOLUME (BEAKER) (test uqyf=094) 85.9 fL 79.4-94.8 MEAN CORPUSCULAR HEMOGLOBIN (BEAKER) (test 27.1 pg 25.6-32.2 kclk=831) MEAN CORPUSCULAR HEMOGLOBIN CONC (BEAKER) (test 31.6 GM/DL 32.2-35.5 zxvz=704) RED CELL DISTRIBUTION WIDTH (BEAKER) (test 17.2 % 11.7-14.4 zpit=489) PLATELET COUNT (BEAKER) (test ynlo=019) 154 K/CU MM 150-450 MEAN PLATELET VOLUME (BEAKER) (test fpbd=830) 8.9 fL 9.4-12.3 NUCLEATED RED BLOOD CELLS (BEAKER) (test 0 /100 WBC 0-0 flqw=700) NEUTROPHILS RELATIVE PERCENT (BEAKER) (test 61 % tsxv=563) LYMPHOCYTES RELATIVE PERCENT (BEAKER) (test 21 % gxkg=442) MONOCYTES RELATIVE PERCENT (BEAKER) (test 10 % uvql=173) EOSINOPHILS RELATIVE PERCENT (BEAKER) (test 8 % ewan=238) BASOPHILS RELATIVE PERCENT (BEAKER) (test 1 % alcf=101) NEUTROPHILS ABSOLUTE COUNT (BEAKER) (test 3.33 K/ L 1.56-6.13 ivwz=041) LYMPHOCYTES ABSOLUTE COUNT (BEAKER) (test 1.13 K/ L 1.18-3.74 oxhn=983) MONOCYTES ABSOLUTE COUNT (BEAKER) (test 0.55 K/ L 0.24-0.36 smpl=424) EOSINOPHILS ABSOLUTE COUNT (BEAKER) (test 0.42 K/ L 0.04-0.36 eztj=174) BASOPHILS ABSOLUTE COUNT (BEAKER) (test 0.06 K/ L 0.01-0.08 hijo=288) IMMATURE GRANULOCYTES-RELATIVE PERCENT (BEAKER) 0 % 0-1 (test plad=2279) POCT-GLUCOSE [id number] 21:18:00 Test Item Value Reference Range Comments POC-GLUCOSE METER (BEAKER) 258 mg/dL 70-110 TESTED AT [address] (test rase=6719) [facility] [address] POCT-GLUCOSE [id number] 17:42:00 Test Item Value Reference Range Comments POC-GLUCOSE METER (BEAKER) 232 mg/dL 70-110 TESTED AT [address] (test jfpe=1349) [facility] [address] POCT-GLUCOSE [id number] 12:51:00 Test Item Value Reference Range Comments POC-GLUCOSE METER (BEAKER) 206 mg/dL 70-110 TESTED AT [address] (test eqwm=0959) [facility] [address] POCT-GLUCOSE [id number] 07:53:00 Test Item Value Reference Range Comments POC-GLUCOSE METER (BEAKER) 219 mg/dL 70-110 TESTED AT [address] (test jnfb=8915) [facility] [address] COMPREHENSIVE METABOLIC [id number] 06:52:00 Test Item Value Reference Range Comments TOTAL PROTEIN (BEAKER) 4.9 gm/dL 6.0-8.3 (test reyd=268) ALBUMIN (BEAKER) (test 2.3 g/dL 3.5-5.0 akls=8024) ALKALINE PHOSPHATASE 119 U/L 40-150 (BEAKER) (test objy=221) BILIRUBIN TOTAL (BEAKER) 1.1 mg/dL 0.2-1.2 (test rukb=522) SODIUM (BEAKER) (test 135 meq/L 136-145 wftq=025) POTASSIUM (BEAKER) (test 4.0 meq/L 3.5-5.1 tvvw=762) CHLORIDE (BEAKER) (test 105 meq/L 98-107 xohb=159) CO2 (BEAKER) (test 26 meq/L 22-29 dxix=661) BLOOD UREA NITROGEN 18 mg/dL 7-21 (BEAKER) (test dkey=266) CREATININE (BEAKER) (test 1.38 mg/dL 0.57-1.25 ygmy=983) GLUCOSE RANDOM (BEAKER) 234 mg/dL 70-105 (test rhxl=011) CALCIUM (BEAKER) (test 7.8 mg/dL 8.4-10.2 vcuw=613) AST (SGOT) (BEAKER) (test 29 U/L 5-34 vwdd=974) ALT (SGPT) (BEAKER) (test 13 U/L 6-55 femt=714) EGFR (BEAKER) (test 39 mL/min/1.73 sq m ESTIMATED GFR IS NOT huer=4554) ACCURATE CREATININE CLEARANCE IN PREDICTING GLOMERULAR FILTRATION RATE. ESTIMATED GFR IS NOT APPLICABLE FOR DIALYSIS PATIENTS. [id number] 06:47:00 Test Item Value Reference Range Comments PHOSPHORUS (BEAKER) (test ifqd=378) 2.0 mg/dL 2.3-4.7 [id number] 06:47:00 Test Item Value Reference Range Comments MAGNESIUM (BEAKER) (test xvqi=558) 1.7 mg/dL 1.6-2.6 HEPATIC FUNCTION [id number] 06:47:00 Test Item Value Reference Range Comments TOTAL PROTEIN (BEAKER) (test fhim=097) 4.9 gm/dL 6.0-8.3 ALBUMIN (BEAKER) (test qdsc=6580) 2.3 g/dL 3.5-5.0 BILIRUBIN TOTAL (BEAKER) (test vqfn=001) 1.1 mg/dL 0.2-1.2 BILIRUBIN DIRECT (BEAKER) (test pyuu=993) 0.6 mg/dL 0.1-0.5 ALKALINE PHOSPHATASE (BEAKER) (test bcpr=447) 119 U/L 40-150 AST (SGOT) (BEAKER) (test dsvz=151) 29 U/L 5-34 ALT (SGPT) (BEAKER) (test icsw=715) 13 U/L 6-55 CBC W/PLT COUNT & AUTO [id number] 06:32:00 Test Item Value Reference Range Comments WHITE BLOOD CELL COUNT (BEAKER) (test gnuf=069) 5.3 K/ L 3.5-10.5 RED BLOOD CELL COUNT (BEAKER) (test brch=054) 3.05 M/ L 3.93-5.22 HEMOGLOBIN (BEAKER) (test hdwp=234) 8.3 GM/DL 11.2-15.7 HEMATOCRIT (BEAKER) (test mlmc=391) 26.7 % 34.1-44.9 MEAN CORPUSCULAR VOLUME (BEAKER) (test lmpt=579) 87.5 fL 79.4-94.8 MEAN CORPUSCULAR HEMOGLOBIN (BEAKER) (test 27.2 pg 25.6-32.2 nprz=213) MEAN CORPUSCULAR HEMOGLOBIN CONC (BEAKER) (test 31.1 GM/DL 32.2-35.5 yydo=867) RED CELL DISTRIBUTION WIDTH (BEAKER) (test 17.4 % 11.7-14.4 efxq=867) PLATELET COUNT (BEAKER) (test ovve=403) 161 K/CU MM 150-450 MEAN PLATELET VOLUME (BEAKER) (test hfwc=600) 8.8 fL 9.4-12.3 NUCLEATED RED BLOOD CELLS (BEAKER) (test 0 /100 WBC 0-0 piss=803) NEUTROPHILS RELATIVE PERCENT (BEAKER) (test 52 % funo=147) LYMPHOCYTES RELATIVE PERCENT (BEAKER) (test 27 % yrzf=643) MONOCYTES RELATIVE PERCENT (BEAKER) (test 9 % jvbg=236) EOSINOPHILS RELATIVE PERCENT (BEAKER) (test 10 % oejz=846) BASOPHILS RELATIVE PERCENT (BEAKER) (test 2 % nydi=121) NEUTROPHILS ABSOLUTE COUNT (BEAKER) (test 2.75 K/ L 1.56-6.13 zvmx=920) LYMPHOCYTES ABSOLUTE COUNT (BEAKER) (test 1.42 K/ L 1.18-3.74 kfht=157) MONOCYTES ABSOLUTE COUNT (BEAKER) (test 0.48 K/ L 0.24-0.36 dbqv=088) EOSINOPHILS ABSOLUTE COUNT (BEAKER) (test 0.54 K/ L 0.04-0.36 bybm=706) BASOPHILS ABSOLUTE COUNT (BEAKER) (test 0.08 K/ L 0.01-0.08 yvom=857) IMMATURE GRANULOCYTES-RELATIVE PERCENT (BEAKER) 0 % 0-1 (test ueoj=7874) B-TYPE NATRIURETIC FACTOR (BNP)2019-05-20 06:27:00 Test Item Value Reference Range Comments B-TYPE NATRIURETIC PEPTIDE (BEAKER) (test 274 pg/mL 0-100 rwvb=389) VANCOMYCIN LEVEL, [id number] 06:16:00 Test Item Value Reference Range Comments VANCOMYCIN TROUGH (BEAKER) (test wgnz=573) 5.8 ug/mL 10.0-20.0 [id number] 06:11:00 Test Item Value Reference Range Comments D-DIMER QUANTITATIVE (BEAKER) (test oofe=290) 3.95 MG/L FEU <0.50 Intended Use: The [...] exclusion of thrombosis is within 95-100% range.CALCIUM, [id number] 06:04:00 Test Item Value Reference Range Comments CALCIUM IONIZED (BEAKER) (test vezh=368) 1.06 mmol/L 1.12-1.27 PH, BLOOD (BEAKER) (test lsgy=7472) 7.43 PROTHROMBIN [id number] 06:02:00 Test Item Value Reference Range Comments PROTIME (BEAKER) (test hphb=486) 13.8 seconds 11.9-14.2 INR (BEAKER) (test uzit=325) 1.1 <=5.9 Effective 04/01/2019: PT Reference Range ChangeNew: 11.9-14.2 Previous: 11.7- 14.7RECOMMENDED COUMADIN/WARFARIN INR THERAPY RANGESSTANDARD DOSE: 2.0-3.0 Includes: PROPHYLAXIS for venous thrombosis, systemic embolization; TREATMENT for venous thrombosis and/or pulmonary embolus.HIGH RISK: Target INR is2.5-3.5 for patients wiht mechanical heart valves.TROPONIN [id number] 02:44:00 Test Item Value Reference Range Comments TROPONIN I (BEAKER) (test hsya=483) 0.01 ng/mL 0.00-0.03 Troponin I (TnI) levels [...] acute neurological disease, and persistent tachyarrhythmia.PROTEIN, RANDOM [id number] 01:50:00 Test Item Value Reference Range Comments PROTEIN, URINE (BEAKER) (test hzqj=4570) 20 mg/dL 0-14 CREATININE, RANDOM [id number] 01:49:00 Test Item Value Reference Range Comments CREATININE URINE (BEAKER) (test hypc=289) 184.6 mg/dL Reference Range: No NormalsRAD, CHEST, 1 VIEW, NON [id number] 01:49: 00Reason for exam:->anasarcaShould this be performed [...] Verified Date/Time: 05/20/2019 01:49 :05 Reading Location: [address] Reading Room POCT-GLUCOSE [id number] 00:36:00 Test Item Value Reference Range Comments POC-GLUCOSE METER (BEAKER) 326 mg/dL 70-110 TESTED AT [facility] [address] [place] [address] (test kaky=5322) [facility] [address] URINALYSIS W/ [id number] 00:02:00 Test Item Value Reference Range Comments COLOR (BEAKER) (test saip=946) Yellow CLARITY (BEAKER) (test wtup=341) Clear SPECIFIC GRAVITY UA (BEAKER) (test qlqk=490) 1.020 1.001-1.035 PH UA (BEAKER) (test tnhy=723) 5.5 5.0-8.0 PROTEIN UA (BEAKER) (test mvfp=021) 20 mg/dL Negative GLUCOSE UA (BEAKER) (test clwq=667) 300 mg/dL Negative KETONES UA (BEAKER) (test ngaz=860) Negative Negative BILIRUBIN UA (BEAKER) (test qzjd=601) Negative Negative BLOOD UA (BEAKER) (test efic=450) Negative Negative NITRITE UA (BEAKER) (test olwa=363) Negative Negative LEUKOCYTE ESTERASE UA (BEAKER) (test ggpt=752) Small Negative UROBILINOGEN UA (BEAKER) (test zauo=954) 2.0 mg/dL 0.2-1.0 RBC UA (BEAKER) (test rokc=451) 2 /HPF WBC UA (BEAKER) (test gmaz=793) 2 /HPF MUCUS (BEAKER) (test iuav=8591) Rare SQUAMOUS EPITHELIAL (BEAKER) (test mmfj=919) 6 /HPF HYALINE CASTS (BEAKER) (test gmfu=505) 5 /LPF SOURCE(BEAKER) (test vmck=1862) Urine, Voided T4, [id number] 22:29:00 Test Item Value Reference Range Comments FREE T4 (BEAKER) (test onau=677) 0.44 ng/dL 0.70-1.48 HEMOGLOBIN [id number] 22:15:00 Test Item Value Reference Range Comments HEMOGLOBIN A1C (BEAKER) (test hhjc=156) 8.6 % 4.3-6.1 TSH/FREE T4 IF [id number] 21:43:00 Test Item Value Reference Range Comments THYROID STIMULATING HORMONE (BEAKER) (test 72.01 uIU/mL 0.35-4.94 cdbj=911) B-TYPE NATRIURETIC FACTOR (BNP)2019-05-19 21:29:00 Test Item Value Reference Range Comments B-TYPE NATRIURETIC PEPTIDE (BEAKER) (test 222 pg/mL 0-100 yotd=626) PROTHROMBIN [id number] 21:26:00 Test Item Value Reference Range Comments PROTIME (BEAKER) (test jhaf=847) 13.6 seconds 11.9-14.2 INR (BEAKER) (test insw=158) 1.1 <=5.9 Effective 04/01/2019: PT Reference Range ChangeNew: 11.9-14.2 Previous: 11.7- 14.7RECOMMENDED COUMADIN/WARFARIN INR THERAPY RANGESSTANDARD DOSE: 2.0-3.0 Includes: PROPHYLAXIS for venous thrombosis, systemic embolization; TREATMENT for venous thrombosis and/or pulmonary embolus.HIGH RISK: Target INR is2.5-3.5 for patients wiht mechanical heart valves.TROPONIN [id number] 21:26:00 Test Item Value Reference Range Comments TROPONIN I (BEAKER) (test jigh=316) < ng/mL 0.00-0.03 Troponin I (TnI) levels [...] failure, acidosis, acute neurological disease, and persistent tachyarrhythmia.[id number] 21:18:00 Test Item Value Reference Range Comments MAGNESIUM (BEAKER) (test 1.8 mg/dL 1.6-2.6 Specimen markedly hemolyzed izkb=693) [id number] 21:18:00 Test Item Value Reference Range Comments PHOSPHORUS (BEAKER) (test 2.1 mg/dL 2.3-4.7 Specimen markedly hemolyzed xdyo=639) BASIC METABOLIC [id number] 21:18:00 Test Item Value Reference Range Comments SODIUM (BEAKER) (test 136 meq/L 136-145 hpvf=036) POTASSIUM (BEAKER) (test 4.8 meq/L 3.5-5.1 Specimen markedly obdp=217) hemolyzed CHLORIDE (BEAKER) (test 103 meq/L 98-107 zebs=328) CO2 (BEAKER) (test 29 meq/L 22-29 wkek=521) BLOOD UREA NITROGEN 17 mg/dL 7-21 (BEAKER) (test bdnw=682) CREATININE (BEAKER) (test 1.33 mg/dL 0.57-1.25 Specimen markedly uxbg=644) hemolyzed GLUCOSE RANDOM (BEAKER) 248 mg/dL 70-105 (test ghkm=012) CALCIUM (BEAKER) (test 8.1 mg/dL 8.4-10.2 kosm=293) EGFR (BEAKER) (test 41 mL/min/1.73 sq m ESTIMATED GFR IS NOT dqus=6167) ACCURATE CREATININE CLEARANCE IN PREDICTING GLOMERULAR FILTRATION RATE. ESTIMATED GFR IS NOT APPLICABLE FOR DIALYSIS PATIENTS. HEPATIC FUNCTION [id number] 21:18:00 Test Item Value Reference Range Comments TOTAL PROTEIN (BEAKER) (test 6.4 gm/dL 6.0-8.3 Specimen markedly hemolyzed qxcg=552) ALBUMIN (BEAKER) (test 2.5 g/dL 3.5-5.0 Specimen markedly hemolyzed lbtl=7537) BILIRUBIN TOTAL (BEAKER) (test 1.3 mg/dL 0.2-1.2 Specimen markedly hemolyzed hdgc=934) BILIRUBIN DIRECT (BEAKER) (test 0.3 mg/dL 0.1-0.5 Specimen markedly hemolyzed xkpl=678) ALKALINE PHOSPHATASE (BEAKER) 143 U/L 40-150 (test zdhs=672) AST (SGOT) (BEAKER) (test 61 U/L 5-34 Specimen markedly hemolyzed rsrs=885) ALT (SGPT) (BEAKER) (test 15 U/L 6-55 Specimen markedly hemolyzed oeyj=340) CBC W/PLT COUNT & AUTO [id number] 20:58:00 Test Item Value Reference Range Comments WHITE BLOOD CELL COUNT (BEAKER) (test ttal=746) 6.0 K/ L 3.5-10.5 RED BLOOD CELL COUNT (BEAKER) (test lgbx=618) 3.57 M/ L 3.93-5.22 HEMOGLOBIN (BEAKER) (test cvsb=602) 9.8 GM/DL 11.2-15.7 HEMATOCRIT (BEAKER) (test qfjo=410) 30.6 % 34.1-44.9 MEAN CORPUSCULAR VOLUME (BEAKER) (test bzdx=996) 85.7 fL 79.4-94.8 MEAN CORPUSCULAR HEMOGLOBIN (BEAKER) (test 27.5 pg 25.6-32.2 wvat=475) MEAN CORPUSCULAR HEMOGLOBIN CONC (BEAKER) (test 32.0 GM/DL 32.2-35.5 uzjo=326) RED CELL DISTRIBUTION WIDTH (BEAKER) (test 17.4 % 11.7-14.4 xpzj=664) PLATELET COUNT (BEAKER) (test fzht=986) 199 K/CU MM 150-450 MEAN PLATELET VOLUME (BEAKER) (test kxzv=472) 9.1 fL 9.4-12.3 NUCLEATED RED BLOOD CELLS (BEAKER) (test 0 /100 WBC 0-0 evng=734) NEUTROPHILS RELATIVE PERCENT (BEAKER) (test 53 % sfrh=126) LYMPHOCYTES RELATIVE PERCENT (BEAKER) (test 27 % dmbe=947) MONOCYTES RELATIVE PERCENT (BEAKER) (test 8 % vvmx=354) EOSINOPHILS RELATIVE PERCENT (BEAKER) (test 10 % jydp=512) BASOPHILS RELATIVE PERCENT (BEAKER) (test 1 % onom=990) NEUTROPHILS ABSOLUTE COUNT (BEAKER) (test 3.21 K/ L 1.56-6.13 xoeu=405) LYMPHOCYTES ABSOLUTE COUNT (BEAKER) (test 1.62 K/ L 1.18-3.74 cnnq=556) MONOCYTES ABSOLUTE COUNT (BEAKER) (test 0.50 K/ L 0.24-0.36 srjm=025) EOSINOPHILS ABSOLUTE COUNT (BEAKER) (test 0.62 K/ L 0.04-0.36 pgdh=038) BASOPHILS ABSOLUTE COUNT (BEAKER) (test 0.08 K/ L 0.01-0.08 tlue=283) IMMATURE GRANULOCYTES-RELATIVE PERCENT (BEAKER) 0 % 0-1 (test fitq=5988) BODY FLUID CULTURE + GRAM [id number] 13:44:00 Test Item Value Reference Range Comments CULTURE (BEAKER) (test ylnu=7856) No growth GRAM STAIN RESULT (BEAKER) (test <1+ White blood cells seen epag=9203) GRAM STAIN RESULT (BEAKER) (test No organisms seen huej=18455) BODY FLUID CULTURE + GRAM [id number] 14:06:00 Test Item Value Reference Range Comments CULTURE (BEAKER) (test aaib=1555) No growth GRAM STAIN RESULT (BEAKER) (test No White blood cells seen gjeq=3086) GRAM STAIN RESULT (BEAKER) (test No organisms seen elms=66089) BASIC METABOLIC [id number] 08:41:00 Test Item Value Reference Range Comments SODIUM (BEAKER) (test 132 meq/L 136-145 ocku=129) POTASSIUM (BEAKER) (test 4.4 meq/L 3.5-5.1 fepa=675) CHLORIDE (BEAKER) (test 100 meq/L 98-107 ampo=728) CO2 (BEAKER) (test 25 meq/L 22-29 ctnw=139) BLOOD UREA NITROGEN 53 mg/dL 7-21 (BEAKER) (test ndmo=341) CREATININE (BEAKER) (test 1.80 mg/dL 0.57-1.25 vvoa=945) GLUCOSE RANDOM (BEAKER) 211 mg/dL 70-105 (test exog=160) CALCIUM (BEAKER) (test 9.0 mg/dL 8.4-10.2 ldve=868) EGFR (BEAKER) (test 29 mL/min/1.73 sq m ESTIMATED GFR IS NOT svmn=4647) ACCURATE CREATININE CLEARANCE IN PREDICTING GLOMERULAR FILTRATION RATE. ESTIMATED GFR IS NOT APPLICABLE FOR DIALYSIS PATIENTS. POCT-GLUCOSE [id number] 08:16:00 Test Item Value Reference Range Comments POC-GLUCOSE METER (BEAKER) 213 mg/dL 70-110 TESTED AT [facility] [address] [place] [address] (test igbx=1105) [facility] [address] HEPATIC FUNCTION [id number] 06:43:00 Test Item Value Reference Range Comments TOTAL PROTEIN (BEAKER) (test tnhw=371) 5.7 gm/dL 6.0-8.3 ALBUMIN (BEAKER) (test jcug=2054) 4.2 g/dL 3.5-5.0 BILIRUBIN TOTAL (BEAKER) (test cwtv=855) 1.6 mg/dL 0.2-1.2 BILIRUBIN DIRECT (BEAKER) (test frqs=161) 0.8 mg/dL 0.1-0.5 ALKALINE PHOSPHATASE (BEAKER) (test ctxd=568) 95 U/L 40-150 AST (SGOT) (BEAKER) (test rurn=677) 71 U/L 5-34 ALT (SGPT) (BEAKER) (test tiae=134) 68 U/L 6-55 POCT-GLUCOSE [id number] 22:00:00 Test Item Value Reference Range Comments POC-GLUCOSE METER (BEAKER) 341 mg/dL 70-110 Notified ALEXI ENNIS/TESTED AT [facility] (test koeu=7713) [address] [place] [address] BODY FLUID CELL COUNT WITH [id number] 20:00:00 Test Item Value Reference Range Comments APPEARANCE FLUID (BEAKER) (test plxa=747) Hazy Clear COLOR FLUID (BEAKER) (test azug=518) Straw Colorless, Straw RBC FLUID (BEAKER) (test hbdc=800) 4000 /cu mm <=1 ADJUSTED WBC FLUID (BEAKER) (test morz=8591) 140 /cu mm <=5 LINING CELLS (BEAKER) (test cvnm=4434) 1 /cu mm <=1 NEUTROPHILS FLUID (BEAKER) (test tvdd=3324) 1 % LYMPHS FLUID (BEAKER) (test hltr=874) 30 % MONO/MACROPHAGE FLUID (BEAKER) (test casp=962) 69 % EOSINOPHILS FLUID (BEAKER) (test icvw=020) 0 % BASO FLUID (BEAKER) (test zapc=010) 0 % CONTAINER BODY FLUID (BEAKER) (test qtag=5686) EDTA Tube U/S, [id number] 16:42:00Reason for exam:->ascites limited 6 litersFINAL REPORT PROCEDURE: Ultrasound-guided paracentesis. INDICATION: 59-year-old woman with ascites. DESCRIPTION: After obtaining informed written consent, ultrasound scan of the abdomen identified ascites in the right lower quadrant. The overlying skin was prepped and draped in the usual, sterile fashion and local 2% lidocaine anesthesia was administered. A 5 [place] catheter was advanced into the peritoneal cavity and 6000 cc of serous fluid was removed. The catheter was removed without immediate complication. Samples were sent for analysis. IMPRESSION:Uncomplicated ultrasound-guided paracentesis with 6000 cc fluid removed. Signed: Antwon Bose MDReport Verified Date/Time: 02/24/2019 16:42:07 Reading Location: [address] Ultrasound Reading Room POCT-GLUCOSE [id number] 13:07:00 Test Item Value Reference Range Comments POC-GLUCOSE METER (BEAKER) 290 mg/dL 70-110 TESTED AT [address] (test vndt=7242) [facility] [address] PROTHROMBIN [id number] 12:01:00 Test Item Value Reference Range Comments PROTIME (BEAKER) (test zkbv=659) 14.3 seconds 11.7-14.7 INR (BEAKER) (test xljw=911) 1.1 <=5.9 RECOMMENDED COUMADIN/WARFARIN INR THERAPY RANGESSTANDARD DOSE: 2.0 - 3.0 Includes: PROPHYLAXIS forvenous thrombosis, systemic embolization; TREATMENT for venous thrombosis and/or pulmonary embolus.HIGH RISK: Target INR is 2.5-3.5 for patients with mechanical heart valves.[id number] 12:01:00 Test Item Value Reference Range Comments PARTIAL THROMBOPLASTIN TIME (BEAKER) (test 32.5 seconds 22.5-36.0 xtow=126) POCT-GLUCOSE [id number] 08:39:00 Test Item Value Reference Range Comments POC-GLUCOSE METER (BEAKER) 279 mg/dL 70-110 TESTED AT [facility] [address] [facility] (test ynth=8791) [place] [address] CALCIUM, [id number] 07:04:00 Test Item Value Reference Range Comments CALCIUM IONIZED (BEAKER) (test gtla=200) 1.08 mmol/L 1.12-1.27 PH, BLOOD (BEAKER) (test xdyp=5666) 7.38 COMPREHENSIVE METABOLIC [id number] 05:59:00 Test Item Value Reference Range Comments TOTAL PROTEIN (BEAKER) 5.5 gm/dL 6.0-8.3 (test krrm=641) ALBUMIN (BEAKER) (test 3.8 g/dL 3.5-5.0 hgnt=8806) ALKALINE PHOSPHATASE 125 U/L 40-150 (BEAKER) (test glru=796) BILIRUBIN TOTAL (BEAKER) 0.9 mg/dL 0.2-1.2 (test kiug=433) SODIUM (BEAKER) (test 130 meq/L 136-145 pmyt=239) POTASSIUM (BEAKER) (test 4.0 meq/L 3.5-5.1 xihl=653) CHLORIDE (BEAKER) (test 99 meq/L 98-107 khii=986) CO2 (BEAKER) (test 23 meq/L 22-29 eswf=953) BLOOD UREA NITROGEN 51 mg/dL 7-21 (BEAKER) (test nwcs=894) CREATININE (BEAKER) (test 2.07 mg/dL 0.57-1.25 iono=078) GLUCOSE RANDOM (BEAKER) 320 mg/dL 70-105 (test uxxk=100) CALCIUM (BEAKER) (test 8.7 mg/dL 8.4-10.2 rjjg=620) AST (SGOT) (BEAKER) (test 111 U/L 5-34 mimv=570) ALT (SGPT) (BEAKER) (test 98 U/L 6-55 ysyg=635) EGFR (BEAKER) (test 24 mL/min/1.73 sq m ESTIMATED GFR IS NOT zxnd=9441) ACCURATE CREATININE CLEARANCE IN PREDICTING GLOMERULAR FILTRATION RATE. ESTIMATED GFR IS NOT APPLICABLE FOR DIALYSIS PATIENTS. [id number] 05:58:00 Test Item Value Reference Range Comments PHOSPHORUS (BEAKER) (test tdya=984) 2.1 mg/dL 2.3-4.7 [id number] 05:58:00 Test Item Value Reference Range Comments MAGNESIUM (BEAKER) (test ogxs=406) 2.3 mg/dL 1.6-2.6 HEPATIC FUNCTION [id number] 05:58:00 Test Item Value Reference Range Comments TOTAL PROTEIN (BEAKER) (test ukqb=042) 5.5 gm/dL 6.0-8.3 ALBUMIN (BEAKER) (test rick=3166) 3.8 g/dL 3.5-5.0 BILIRUBIN TOTAL (BEAKER) (test ndkl=204) 0.9 mg/dL 0.2-1.2 BILIRUBIN DIRECT (BEAKER) (test etga=420) 0.4 mg/dL 0.1-0.5 ALKALINE PHOSPHATASE (BEAKER) (test xose=707) 125 U/L 40-150 AST (SGOT) (BEAKER) (test tmbr=132) 111 U/L 5-34 ALT (SGPT) (BEAKER) (test boxl=254) 98 U/L 6-55 CBC W/PLT COUNT & AUTO [id number] 05:29:00 Test Item Value Reference Range Comments WHITE BLOOD CELL COUNT (BEAKER) (test inke=683) 5.9 K/ L 3.5-10.5 RED BLOOD CELL COUNT (BEAKER) (test ufgx=109) 3.00 M/ L 3.93-5.22 HEMOGLOBIN (BEAKER) (test duic=676) 8.5 GM/DL 11.2-15.7 HEMATOCRIT (BEAKER) (test pxdp=555) 25.3 % 34.1-44.9 MEAN CORPUSCULAR VOLUME (BEAKER) (test mznt=656) 84.3 fL 79.4-94.8 MEAN CORPUSCULAR HEMOGLOBIN (BEAKER) (test 28.3 pg 25.6-32.2 plwz=072) MEAN CORPUSCULAR HEMOGLOBIN CONC (BEAKER) (test 33.6 GM/DL 32.2-35.5 toay=346) RED CELL DISTRIBUTION WIDTH (BEAKER) (test 14.8 % 11.7-14.4 kcmc=941) PLATELET COUNT (BEAKER) (test udnb=363) 146 K/CU MM 150-450 MEAN PLATELET VOLUME (BEAKER) (test ibkg=804) 10.1 fL 9.4-12.3 NUCLEATED RED BLOOD CELLS (BEAKER) (test 0 /100 WBC 0-0 obob=901) NEUTROPHILS RELATIVE PERCENT (BEAKER) (test 67 % ccqh=551) LYMPHOCYTES RELATIVE PERCENT (BEAKER) (test 16 % ehhf=980) MONOCYTES RELATIVE PERCENT (BEAKER) (test 10 % axbr=477) EOSINOPHILS RELATIVE PERCENT (BEAKER) (test 6 % uqqm=025) BASOPHILS RELATIVE PERCENT (BEAKER) (test 1 % sbez=958) NEUTROPHILS ABSOLUTE COUNT (BEAKER) (test 3.94 K/ L 1.56-6.13 mpfc=001) LYMPHOCYTES ABSOLUTE COUNT (BEAKER) (test 0.96 K/ L 1.18-3.74 kelt=772) MONOCYTES ABSOLUTE COUNT (BEAKER) (test 0.57 K/ L 0.24-0.36 kinv=115) EOSINOPHILS ABSOLUTE COUNT (BEAKER) (test 0.37 K/ L 0.04-0.36 tjiv=308) BASOPHILS ABSOLUTE COUNT (BEAKER) (test 0.03 K/ L 0.01-0.08 czyo=644) IMMATURE GRANULOCYTES-RELATIVE PERCENT (BEAKER) 0 % 0-1 (test khrp=0268) POCT-GLUCOSE [id number] 21:01:00 Test Item Value Reference Range Comments POC-GLUCOSE METER (BEAKER) 371 mg/dL 70-110 Notified ALEXI ENNIS/TESTED AT [facility] (test xccu=1440) [address] [place] [address] POCT-GLUCOSE [id number] 17:30:00 Test Item Value Reference Range Comments POC-GLUCOSE METER (BEAKER) 389 mg/dL 70-110 TESTED AT [address] (test fgym=1131) [facility] [address] POCT-GLUCOSE [id number] 08:50:00 Test Item Value Reference Range Comments POC-GLUCOSE METER (BEAKER) 303 mg/dL 70-110 TESTED AT [address] (test luia=8069) [facility] [address] POCT-GLUCOSE [id number] 08:27:00 Test Item Value Reference Range Comments POC-GLUCOSE METER (BEAKER) 342 mg/dL 70-110 Will Repeat Test/TESTED AT (test tibt=4269) [facility] [address] [facility] [address] CALCIUM, [id number] 07:20:00 Test Item Value Reference Range Comments CALCIUM IONIZED (BEAKER) (test avcx=819) 0.98 mmol/L 1.12-1.27 PH, BLOOD (BEAKER) (test xmhc=6326) 7.41 COMPREHENSIVE METABOLIC [id number] 07:05:00 Test Item Value Reference Range Comments TOTAL PROTEIN (BEAKER) 5.0 gm/dL 6.0-8.3 (test oqtu=853) ALBUMIN (BEAKER) (test 3.3 g/dL 3.5-5.0 ycvd=2334) ALKALINE PHOSPHATASE 126 U/L 40-150 (BEAKER) (test dgey=004) BILIRUBIN TOTAL (BEAKER) 1.2 mg/dL 0.2-1.2 (test sqbf=582) SODIUM (BEAKER) (test 128 meq/L 136-145 gibf=746) POTASSIUM (BEAKER) (test 4.1 meq/L 3.5-5.1 zebt=885) CHLORIDE (BEAKER) (test 98 meq/L 98-107 einx=550) CO2 (BEAKER) (test 20 meq/L 22-29 wwep=200) BLOOD UREA NITROGEN 43 mg/dL 7-21 (BEAKER) (test ndiz=361) CREATININE (BEAKER) (test 2.39 mg/dL 0.57-1.25 ihft=980) GLUCOSE RANDOM (BEAKER) 305 mg/dL 70-105 (test dugi=463) CALCIUM (BEAKER) (test 8.1 mg/dL 8.4-10.2 zeis=556) AST (SGOT) (BEAKER) (test 173 U/L 5-34 sksn=795) ALT (SGPT) (BEAKER) (test 143 U/L 6-55 hofo=173) EGFR (BEAKER) (test 21 mL/min/1.73 sq m ESTIMATED GFR IS NOT gosx=1312) ACCURATE CREATININE CLEARANCE IN PREDICTING GLOMERULAR FILTRATION RATE. ESTIMATED GFR IS NOT APPLICABLE FOR DIALYSIS PATIENTS. [id number] 06:56:00 Test Item Value Reference Range Comments PHOSPHORUS (BEAKER) (test acnd=045) 2.5 mg/dL 2.3-4.7 [id number] 06:56:00 Test Item Value Reference Range Comments MAGNESIUM (BEAKER) (test qjui=485) 1.9 mg/dL 1.6-2.6 HEPATIC FUNCTION [id number] 06:56:00 Test Item Value Reference Range Comments TOTAL PROTEIN (BEAKER) (test lisu=079) 5.0 gm/dL 6.0-8.3 ALBUMIN (BEAKER) (test ciwr=9411) 3.3 g/dL 3.5-5.0 BILIRUBIN TOTAL (BEAKER) (test gfoe=568) 1.2 mg/dL 0.2-1.2 BILIRUBIN DIRECT (BEAKER) (test lhpd=383) 0.6 mg/dL 0.1-0.5 ALKALINE PHOSPHATASE (BEAKER) (test rxqq=878) 126 U/L 40-150 AST (SGOT) (BEAKER) (test mbcy=940) 173 U/L 5-34 ALT (SGPT) (BEAKER) (test ienj=698) 143 U/L 6-55 CBC W/PLT COUNT & AUTO [id number] 06:17:00 Test Item Value Reference Range Comments WHITE BLOOD CELL COUNT (BEAKER) (test eqmr=223) 5.7 K/ L 3.5-10.5 RED BLOOD CELL COUNT (BEAKER) (test ulqq=113) 3.40 M/ L 3.93-5.22 HEMOGLOBIN (BEAKER) (test docr=998) 9.2 GM/DL 11.2-15.7 HEMATOCRIT (BEAKER) (test cleb=120) 29.1 % 34.1-44.9 MEAN CORPUSCULAR VOLUME (BEAKER) (test khxf=918) 85.6 fL 79.4-94.8 MEAN CORPUSCULAR HEMOGLOBIN (BEAKER) (test 27.1 pg 25.6-32.2 myym=100) MEAN CORPUSCULAR HEMOGLOBIN CONC (BEAKER) (test 31.6 GM/DL 32.2-35.5 cbqy=523) RED CELL DISTRIBUTION WIDTH (BEAKER) (test 14.7 % 11.7-14.4 jusn=728) PLATELET COUNT (BEAKER) (test igep=949) 128 K/CU MM 150-450 MEAN PLATELET VOLUME (BEAKER) (test rxsn=451) 10.3 fL 9.4-12.3 NUCLEATED RED BLOOD CELLS (BEAKER) (test 0 /100 WBC 0-0 zedm=983) NEUTROPHILS RELATIVE PERCENT (BEAKER) (test 69 % qyks=924) LYMPHOCYTES RELATIVE PERCENT (BEAKER) (test 15 % yfbb=787) MONOCYTES RELATIVE PERCENT (BEAKER) (test 9 % axsr=323) EOSINOPHILS RELATIVE PERCENT (BEAKER) (test 6 % jwdg=208) BASOPHILS RELATIVE PERCENT (BEAKER) (test 1 % amdo=009) NEUTROPHILS ABSOLUTE COUNT (BEAKER) (test 3.91 K/ L 1.56-6.13 hfmh=254) LYMPHOCYTES ABSOLUTE COUNT (BEAKER) (test 0.86 K/ L 1.18-3.74 ttym=574) MONOCYTES ABSOLUTE COUNT (BEAKER) (test 0.51 K/ L 0.24-0.36 xpun=432) EOSINOPHILS ABSOLUTE COUNT (BEAKER) (test 0.35 K/ L 0.04-0.36 eypc=951) BASOPHILS ABSOLUTE COUNT (BEAKER) (test 0.03 K/ L 0.01-0.08 pzlk=617) IMMATURE GRANULOCYTES-RELATIVE PERCENT (BEAKER) 0 % 0-1 (test prht=7861) BODY FLUID CELL COUNT WITH [id number] 17:06:00 Test Item Value Reference Range Comments APPEARANCE FLUID (BEAKER) (test gnbw=861) Hazy Clear COLOR FLUID (BEAKER) (test rdyx=306) Yellow Colorless, Straw RBC FLUID (BEAKER) (test njge=982) 6000 /cu mm <=1 ADJUSTED WBC FLUID (BEAKER) (test kehh=9766) 125 /cu mm <=5 LINING CELLS (BEAKER) (test bzxn=5699) 2 /cu mm <=1 NEUTROPHILS FLUID (BEAKER) (test sgut=5091) 6 % LYMPHS FLUID (BEAKER) (test nnfv=991) 21 % MONO/MACROPHAGE FLUID (BEAKER) (test jfkh=927) 73 % EOSINOPHILS FLUID (BEAKER) (test hqbe=070) 0 % BASO FLUID (BEAKER) (test cmpa=318) 0 % CONTAINER BODY FLUID (BEAKER) (test wycr=0950) EDTA Tube POCT-GLUCOSE [id number] 16:40:00 Test Item Value Reference Range Comments POC-GLUCOSE METER (BEAKER) 396 mg/dL 70-110 TESTED AT [facility] [address] (test crmk=5728) [facility] [address] U/S, [id number] 16:12:00limit to 6 LReason for exam:->ascites, limit to 6 LFINAL REPORT Paracentesis dated 02/22/2019 Procedure: Ultrasound-guided paracentesis. Preprocedure diagnosis: Ascites Postprocedure diagnosis: Ascites Conscious sedation: None. Radiologist: Giovanni Haas M.D. Cattle Manager: None Anesthesia: 1% Xylocaine mixed with sodium bicarbonate local anesthesia. Technique: After obtaining informed consent, ultrasound-guided paracentesis was performed under usual sterile technique. Using a 5 cook islander drainage catheter, puncture was made in the right lower quadrant abdomen. Approximately 6000 cc of serous fluid was removed. Patient tolerated the procedure well without complication. Complication: None Graft/ Implant: None Estimated Blood Loss: None Impression: Ultrasound-guided paracentesis. Signed: Giovanni Haas Verified Date/Time: 02/22/2019 16:12 :23 Reading Location: [facility] C013Y CT Body Reading Room RAD, CHEST, 1 VIEW, NON [id number] 12:22:00Reason for exam:->coughShould this be performed at [...] Verified Date/ Time: 02/22/2019 12:22:24 Reading Location: [facility] C013W Consult Reading Room POCT-GLUCOSE [id number] 07:55:00 Test Item Value Reference Range Comments POC-GLUCOSE METER (BEAKER) 317 mg/dL 70-110 TESTED AT [address] (test ohse=7930) [facility] [address] POCT-GLUCOSE [id number] 07:24:00 Test Item Value Reference Range Comments POC-GLUCOSE METER (BEAKER) 386 mg/dL 70-110 Notified ALEXI ENNIS/TESTED AT [facility] (test xmkf=0975) [address] [place] [address] POCT-GLUCOSE [id number] 07:24:00 Test Item Value Reference Range Comments POC-GLUCOSE METER (BEAKER) 295 mg/dL 70-110 TESTED AT [address] (test npqe=0916) [facility] [address] POCT-GLUCOSE [id number] 07:24:00 Test Item Value Reference Range Comments POC-GLUCOSE METER (BEAKER) 256 mg/dL 70-110 TESTED AT [address] (test awyz=1429) [facility] [address] BASIC METABOLIC [id number] 06:50:00 Test Item Value Reference Range Comments SODIUM (BEAKER) (test 128 meq/L 136-145 fglr=851) POTASSIUM (BEAKER) (test 4.0 meq/L 3.5-5.1 slet=053) CHLORIDE (BEAKER) (test 100 meq/L 98-107 qafx=094) CO2 (BEAKER) (test 21 meq/L 22-29 urft=193) BLOOD UREA NITROGEN 40 mg/dL 7-21 (BEAKER) (test bdex=922) CREATININE (BEAKER) (test 2.62 mg/dL 0.57-1.25 njua=405) GLUCOSE RANDOM (BEAKER) 351 mg/dL 70-105 (test cwpk=304) CALCIUM (BEAKER) (test 8.0 mg/dL 8.4-10.2 cixp=767) EGFR (BEAKER) (test 19 mL/min/1.73 sq m ESTIMATED GFR IS NOT qtqa=7411) ACCURATE CREATININE CLEARANCE IN PREDICTING GLOMERULAR FILTRATION RATE. ESTIMATED GFR IS NOT APPLICABLE FOR DIALYSIS PATIENTS. [id number] 06:46:00 Test Item Value Reference Range Comments MAGNESIUM (BEAKER) (test nrua=077) 1.9 mg/dL 1.6-2.6 BLOOD [id number] 20:01:00 Test Item Value Reference Range Comments CULTURE (BEAKER) (test kyfc=7991) No growth in 5 days BLOOD [id number] 20:01:00 Test Item Value Reference Range Comments CULTURE (BEAKER) (test slxh=8165) No growth in 5 days POCT-GLUCOSE [id number] 08:39:00 Test Item Value Reference Range Comments POC-GLUCOSE METER (BEAKER) 300 mg/dL 70-110 TESTED AT [facility] [address] (test uzsx=2371) [facility] [address] POCT-GLUCOSE [id number] 08:39:00 Test Item Value Reference Range Comments POC-GLUCOSE METER (BEAKER) 330 mg/dL 70-110 Notified ALEXI ENNIS/TESTED AT [facility] (test thhk=3002) [address] [facility] [address] COMPREHENSIVE METABOLIC [id number] 08:25:00 Test Item Value Reference Range Comments TOTAL PROTEIN (BEAKER) 4.9 gm/dL 6.0-8.3 (test ujbv=754) ALBUMIN (BEAKER) (test 3.3 g/dL 3.5-5.0 pkia=5929) ALKALINE PHOSPHATASE 129 U/L 40-150 (BEAKER) (test umfb=809) BILIRUBIN TOTAL (BEAKER) 1.2 mg/dL 0.2-1.2 (test jovg=265) SODIUM (BEAKER) (test 130 meq/L 136-145 bmkg=714) POTASSIUM (BEAKER) (test 4.5 meq/L 3.5-5.1 excq=877) CHLORIDE (BEAKER) (test 102 meq/L 98-107 olpu=403) CO2 (BEAKER) (test 20 meq/L 22-29 klbj=726) BLOOD UREA NITROGEN 32 mg/dL 7-21 (BEAKER) (test vusx=626) CREATININE (BEAKER) (test 2.28 mg/dL 0.57-1.25 ewzd=958) GLUCOSE RANDOM (BEAKER) 341 mg/dL 70-105 (test mwvf=221) CALCIUM (BEAKER) (test 8.1 mg/dL 8.4-10.2 elyx=426) AST (SGOT) (BEAKER) (test 851 U/L 5-34 iene=549) ALT (SGPT) (BEAKER) (test 345 U/L 6-55 dxhi=826) EGFR (BEAKER) (test 22 mL/min/1.73 sq m ESTIMATED GFR IS NOT rnvn=9526) ACCURATE CREATININE CLEARANCE IN PREDICTING GLOMERULAR FILTRATION RATE. ESTIMATED GFR IS NOT APPLICABLE FOR DIALYSIS PATIENTS. [id number] 08:19:00 Test Item Value Reference Range Comments PHOSPHORUS (BEAKER) (test rzeu=329) 2.3 mg/dL 2.3-4.7 [id number] 08:19:00 Test Item Value Reference Range Comments MAGNESIUM (BEAKER) (test fwib=067) 1.9 mg/dL 1.6-2.6 CALCIUM, [id number] 07:20:00 Test Item Value Reference Range Comments CALCIUM IONIZED (BEAKER) (test fjjj=966) 0.98 mmol/L 1.12-1.27 PH, BLOOD (BEAKER) (test wtlv=7216) 7.42 CBC W/PLT COUNT & AUTO [id number] 06:36:00 Test Item Value Reference Range Comments WHITE BLOOD CELL COUNT (BEAKER) (test bxag=820) 8.1 K/ L 3.5-10.5 RED BLOOD CELL COUNT (BEAKER) (test wfkc=625) 3.43 M/ L 3.93-5.22 HEMOGLOBIN (BEAKER) (test elvz=034) 9.2 GM/DL 11.2-15.7 HEMATOCRIT (BEAKER) (test ildm=321) 29.3 % 34.1-44.9 MEAN CORPUSCULAR VOLUME (BEAKER) (test accp=272) 85.4 fL 79.4-94.8 MEAN CORPUSCULAR HEMOGLOBIN (BEAKER) (test 26.8 pg 25.6-32.2 eckw=674) MEAN CORPUSCULAR HEMOGLOBIN CONC (BEAKER) (test 31.4 GM/DL 32.2-35.5 ollv=995) RED CELL DISTRIBUTION WIDTH (BEAKER) (test 14.6 % 11.7-14.4 fsxb=456) PLATELET COUNT (BEAKER) (test imoz=087) 132 K/CU MM 150-450 MEAN PLATELET VOLUME (BEAKER) (test gnfx=954) 9.3 fL 9.4-12.3 NUCLEATED RED BLOOD CELLS (BEAKER) (test 0 /100 WBC 0-0 qgxb=812) NEUTROPHILS RELATIVE PERCENT (BEAKER) (test 77 % sdtk=729) LYMPHOCYTES RELATIVE PERCENT (BEAKER) (test 13 % ukml=645) MONOCYTES RELATIVE PERCENT (BEAKER) (test 8 % kirw=804) EOSINOPHILS RELATIVE PERCENT (BEAKER) (test 2 % nojg=701) BASOPHILS RELATIVE PERCENT (BEAKER) (test 1 % upvs=611) NEUTROPHILS ABSOLUTE COUNT (BEAKER) (test 6.17 K/ L 1.56-6.13 jfsx=219) LYMPHOCYTES ABSOLUTE COUNT (BEAKER) (test 1.02 K/ L 1.18-3.74 zbxy=290) MONOCYTES ABSOLUTE COUNT (BEAKER) (test 0.61 K/ L 0.24-0.36 niqe=123) EOSINOPHILS ABSOLUTE COUNT (BEAKER) (test 0.18 K/ L 0.04-0.36 cqfi=950) BASOPHILS ABSOLUTE COUNT (BEAKER) (test 0.05 K/ L 0.01-0.08 jpcu=647) IMMATURE GRANULOCYTES-RELATIVE PERCENT (BEAKER) 1 % 0-1 (test nxah=5030) BASIC METABOLIC [id number] 19:24:00 Test Item Value Reference Range Comments SODIUM (BEAKER) (test 132 meq/L 136-145 wwas=501) POTASSIUM (BEAKER) (test 4.8 meq/L 3.5-5.1 bezc=730) CHLORIDE (BEAKER) (test 103 meq/L 98-107 vgeu=539) CO2 (BEAKER) (test 20 meq/L 22-29 qqay=239) BLOOD UREA NITROGEN 30 mg/dL 7-21 (BEAKER) (test spyt=424) CREATININE (BEAKER) (test 1.85 mg/dL 0.57-1.25 nnmh=975) GLUCOSE RANDOM (BEAKER) 297 mg/dL 70-105 (test edzb=434) CALCIUM (BEAKER) (test 8.7 mg/dL 8.4-10.2 rynt=014) EGFR (BEAKER) (test 28 mL/min/1.73 sq m ESTIMATED GFR IS NOT gpqj=8436) ACCURATE CREATININE CLEARANCE IN PREDICTING GLOMERULAR FILTRATION RATE. ESTIMATED GFR IS NOT APPLICABLE FOR DIALYSIS PATIENTS. Please draw [address] Quiroz at [phone] with results.Call [id number] 19:22:00 Test Item Value Reference Range Comments SODIUM (BEAKER) (test cdgo=857) 132 meq/L 136-145 POTASSIUM (BEAKER) (test hvzx=411) 4.8 meq/L 3.5-5.1 CHLORIDE (BEAKER) (test kzrv=644) 103 meq/L 98-107 CO2 (BEAKER) (test pawh=558) 20 meq/L 22-29 Please draw 4 hours after [address]PS. Page Dr. Quiroz at [phone] with results.Call [id number] 18:11:00 Test Item Value Reference Range Comments POC-GLUCOSE METER (BEAKER) 314 mg/dL 70-110 TESTED AT [address] (test tpzy=2669) [place] [id number] POCT-GLUCOSE [id number] 17:29:00 Test Item Value Reference Range Comments POC-GLUCOSE METER (BEAKER) 255 mg/dL 70-110 TESTED AT [address] (test yzhv=2794) [facility] [address] POCT-GLUCOSE [id number] 13:02:00 Test Item Value Reference Range Comments POC-GLUCOSE METER (BEAKER) 289 mg/dL 70-110 TESTED AT [address] (test edbj=9950) [place] [id number] BODY FLUID CULTURE + GRAM [id number] 12:08:00 Test Item Value Reference Range Comments CULTURE (BEAKER) (test isjh=3596) No growth GRAM STAIN RESULT (BEAKER) (test <1+ WBCs gwio=7491) GRAM STAIN RESULT (BEAKER) (test No organisms seen twui=52923) SEAMUS [id number] 09:29:00Reason for exam:->cirrhosis/ portal hypertension , refractory [...] and a bleeding placement of a 10 Senegalese sheath from theright hepatic vein to the [...] 1 L of yellow fluid. The 5 Senegalese needle/catheter was inserted with real-time ultrasound guidance into the peritoneal cavity in the right lateral abdomen following sterile preparation. Following this, the sheath catheter was removed. CONCLUSION: Successful TIPS and paracentesis. Signed: Yulia Kaba MDReport Verified Date/Time: 02/20/2019 09:29:18 Reading Location : [place] [address] Angio Body Reading Room CALCIUM, [id number] 06:43:00 Test Item Value Reference Range Comments CALCIUM IONIZED (BEAKER) (test lury=471) 1.02 mmol/L 1.12-1.27 PH, BLOOD (BEAKER) (test ccrl=2684) 7.40 [id number] 06:12:00 Test Item Value Reference Range Comments PHOSPHORUS (BEAKER) (test lbhy=198) 2.5 mg/dL 2.3-4.7 [id number] 06:12:00 Test Item Value Reference Range Comments MAGNESIUM (BEAKER) (test olkr=432) 1.6 mg/dL 1.6-2.6 HEPATIC FUNCTION [id number] 06:12:00 Test Item Value Reference Range Comments TOTAL PROTEIN (BEAKER) (test vhle=854) 5.3 gm/dL 6.0-8.3 ALBUMIN (BEAKER) (test ikok=2509) 3.6 g/dL 3.5-5.0 BILIRUBIN TOTAL (BEAKER) (test cqfr=090) 1.2 mg/dL 0.2-1.2 BILIRUBIN DIRECT (BEAKER) (test udua=475) 0.6 mg/dL 0.1-0.5 ALKALINE PHOSPHATASE (BEAKER) (test ifbo=436) 80 U/L 40-150 AST (SGOT) (BEAKER) (test tvub=917) 99 U/L 5-34 ALT (SGPT) (BEAKER) (test etjw=707) 52 U/L 6-55 COMPREHENSIVE METABOLIC [id number] 06:12:00 Test Item Value Reference Range Comments TOTAL PROTEIN (BEAKER) 5.3 gm/dL 6.0-8.3 (test pjvn=490) ALBUMIN (BEAKER) (test 3.6 g/dL 3.5-5.0 wjjv=4118) ALKALINE PHOSPHATASE 80 U/L 40-150 (BEAKER) (test hsud=467) BILIRUBIN TOTAL (BEAKER) 1.2 mg/dL 0.2-1.2 (test itkn=005) SODIUM (BEAKER) (test 133 meq/L 136-145 ohvi=127) POTASSIUM (BEAKER) (test 5.4 meq/L 3.5-5.1 bzdy=556) CHLORIDE (BEAKER) (test 104 meq/L 98-107 vxle=530) CO2 (BEAKER) (test 22 meq/L 22-29 aokd=342) BLOOD UREA NITROGEN 27 mg/dL 7-21 (BEAKER) (test axxl=832) CREATININE (BEAKER) (test 1.58 mg/dL 0.57-1.25 noet=696) GLUCOSE RANDOM (BEAKER) 300 mg/dL 70-105 (test pzsj=545) CALCIUM (BEAKER) (test 8.4 mg/dL 8.4-10.2 qpjn=168) AST (SGOT) (BEAKER) (test 99 U/L 5-34 mspt=812) ALT (SGPT) (BEAKER) (test 52 U/L 6-55 xkrx=857) EGFR (BEAKER) (test 33 mL/min/1.73 sq m ESTIMATED GFR IS NOT rgeo=0617) ACCURATE CREATININE CLEARANCE IN PREDICTING GLOMERULAR FILTRATION RATE. ESTIMATED GFR IS NOT APPLICABLE FOR DIALYSIS PATIENTS. PROTHROMBIN [id number] 05:57:00 Test Item Value Reference Range Comments PROTIME (BEAKER) (test dsvo=307) 16.4 seconds 11.7-14.7 INR (BEAKER) (test xlwa=057) 1.3 <=5.9 RECOMMENDED COUMADIN/WARFARIN INR THERAPY RANGESSTANDARD DOSE: 2.0 - 3.0 Includes: PROPHYLAXIS forvenous thrombosis, systemic embolization; TREATMENT for venous thrombosis and/or pulmonary embolus.HIGH RISK: Target INR is 2.5-3.5 for patients with mechanical heart valves.CBC W/PLT COUNT & AUTO [id number] 05:54:00 Test Item Value Reference Range Comments WHITE BLOOD CELL COUNT (BEAKER) (test fzar=186) 7.9 K/ L 3.5-10.5 RED BLOOD CELL COUNT (BEAKER) (test jkvk=074) 3.24 M/ L 3.93-5.22 HEMOGLOBIN (BEAKER) (test tuyg=099) 8.9 GM/DL 11.2-15.7 HEMATOCRIT (BEAKER) (test fony=955) 28.0 % 34.1-44.9 MEAN CORPUSCULAR VOLUME (BEAKER) (test egbf=666) 86.4 fL 79.4-94.8 MEAN CORPUSCULAR HEMOGLOBIN (BEAKER) (test 27.5 pg 25.6-32.2 orch=082) MEAN CORPUSCULAR HEMOGLOBIN CONC (BEAKER) (test 31.8 GM/DL 32.2-35.5 ueer=381) RED CELL DISTRIBUTION WIDTH (BEAKER) (test 14.4 % 11.7-14.4 ubiz=773) PLATELET COUNT (BEAKER) (test wwnd=869) 132 K/CU MM 150-450 MEAN PLATELET VOLUME (BEAKER) (test xvcy=453) 9.3 fL 9.4-12.3 NUCLEATED RED BLOOD CELLS (BEAKER) (test 0 /100 WBC 0-0 mlsv=372) NEUTROPHILS RELATIVE PERCENT (BEAKER) (test 83 % ysql=986) LYMPHOCYTES RELATIVE PERCENT (BEAKER) (test 10 % abiy=928) MONOCYTES RELATIVE PERCENT (BEAKER) (test 7 % ofvx=091) EOSINOPHILS RELATIVE PERCENT (BEAKER) (test 0 % exaz=008) BASOPHILS RELATIVE PERCENT (BEAKER) (test 0 % dumk=611) NEUTROPHILS ABSOLUTE COUNT (BEAKER) (test 6.55 K/ L 1.56-6.13 jcav=075) LYMPHOCYTES ABSOLUTE COUNT (BEAKER) (test 0.77 K/ L 1.18-3.74 vswx=077) MONOCYTES ABSOLUTE COUNT (BEAKER) (test 0.55 K/ L 0.24-0.36 indp=856) EOSINOPHILS ABSOLUTE COUNT (BEAKER) (test 0.00 K/ L 0.04-0.36 oyue=092) BASOPHILS ABSOLUTE COUNT (BEAKER) (test 0.02 K/ L 0.01-0.08 trnq=198) IMMATURE GRANULOCYTES-RELATIVE PERCENT (BEAKER) 0 % 0-1 (test qqkh=4166) POCT-GLUCOSE [id number] 19:01:00 Test Item Value Reference Range Comments POC-GLUCOSE METER (BEAKER) 301 mg/dL 70-110 TESTED AT [facility] [address] [place] [address] (test jsbl=1297) [facility] [address] [address], ABDOMEN, WITHOUT [id number] 12:33:00FINAL REPORT ABDOMINAL CT DATED 02/19/2019 CLINICAL [...] [place] Verified Date/Time: 02/19/2019 12:33:54 Reading Location: [address] Body Reading Room Electronicallysigned by: GIOVANNI HAAS M.D. on 02/19/2019 12:33 PMBODY FLUID CULTURE + GRAM [id number] 12:08:00 Test Item Value Reference Range Comments CULTURE (BEAKER) (test ynda=4026) No growth GRAM STAIN RESULT (BEAKER) (test <1+ WBCs bjcd=6029) GRAM STAIN RESULT (BEAKER) (test No organisms seen wzps=88501) POCT-GLUCOSE [id number] 09:38:00 Test Item Value Reference Range Comments POC-GLUCOSE METER (BEAKER) 274 mg/dL 70-110 TESTED AT [address] (test jjtt=2721) [facility] [address] [address], [id number] 06:56:00 Test Item Value Reference Range Comments CALCIUM IONIZED (BEAKER) (test fjxe=959) 1.05 mmol/L 1.12-1.27 PH, BLOOD (BEAKER) (test tust=7707) 7.40 [id number] 06:22:00 Test Item Value Reference Range Comments PHOSPHORUS (BEAKER) (test igxx=330) 2.3 mg/dL 2.3-4.7 [id number] 06:22:00 Test Item Value Reference Range Comments MAGNESIUM (BEAKER) (test lwlj=080) 1.7 mg/dL 1.6-2.6 HEPATIC FUNCTION [id number] 06:22:00 Test Item Value Reference Range Comments TOTAL PROTEIN (BEAKER) (test pzkl=294) 5.6 gm/dL 6.0-8.3 ALBUMIN (BEAKER) (test ekqi=7257) 3.4 g/dL 3.5-5.0 BILIRUBIN TOTAL (BEAKER) (test wagm=723) 0.9 mg/dL 0.2-1.2 BILIRUBIN DIRECT (BEAKER) (test hvkr=167) 0.4 mg/dL 0.1-0.5 ALKALINE PHOSPHATASE (BEAKER) (test zfzu=966) 121 U/L 40-150 AST (SGOT) (BEAKER) (test josr=419) 28 U/L 5-34 ALT (SGPT) (BEAKER) (test lyfi=512) 12 U/L 6-55 COMPREHENSIVE METABOLIC [id number] 06:22:00 Test Item Value Reference Range Comments TOTAL PROTEIN (BEAKER) 5.6 gm/dL 6.0-8.3 (test ywaa=762) ALBUMIN (BEAKER) (test 3.4 g/dL 3.5-5.0 azpz=3210) ALKALINE PHOSPHATASE 121 U/L 40-150 (BEAKER) (test cntq=773) BILIRUBIN TOTAL (BEAKER) 0.9 mg/dL 0.2-1.2 (test upbn=260) SODIUM (BEAKER) (test 135 meq/L 136-145 xybl=796) POTASSIUM (BEAKER) (test 4.5 meq/L 3.5-5.1 wzsm=170) CHLORIDE (BEAKER) (test 105 meq/L 98-107 ivvq=475) CO2 (BEAKER) (test 22 meq/L 22-29 qgpf=331) BLOOD UREA NITROGEN 29 mg/dL 7-21 (BEAKER) (test ozvn=962) CREATININE (BEAKER) (test 1.38 mg/dL 0.57-1.25 bsit=871) GLUCOSE RANDOM (BEAKER) 313 mg/dL 70-105 (test apih=104) CALCIUM (BEAKER) (test 8.7 mg/dL 8.4-10.2 ljyb=954) AST (SGOT) (BEAKER) (test 28 U/L 5-34 vwtc=275) ALT (SGPT) (BEAKER) (test 12 U/L 6-55 obuk=601) EGFR (BEAKER) (test 39 mL/min/1.73 sq m ESTIMATED GFR IS NOT jhks=2231) ACCURATE CREATININE CLEARANCE IN PREDICTING GLOMERULAR FILTRATION RATE. ESTIMATED GFR IS NOT APPLICABLE FOR DIALYSIS PATIENTS. PROTHROMBIN [id number] 06:15:00 Test Item Value Reference Range Comments PROTIME (BEAKER) (test yulz=796) 14.0 seconds 11.7-14.7 INR (BEAKER) (test fmke=829) 1.1 <=5.9 RECOMMENDED COUMADIN/WARFARIN INR THERAPY RANGESSTANDARD DOSE: 2.0 - 3.0 Includes: PROPHYLAXIS forvenous thrombosis, systemic embolization; TREATMENT for venous thrombosis and/or pulmonary embolus.HIGH RISK: Target INR is 2.5-3.5 for patients with mechanical heart valves.CBC W/PLT COUNT & AUTO [id number] 05:57:00 Test Item Value Reference Range Comments WHITE BLOOD CELL COUNT (BEAKER) (test vjjo=179) 6.9 K/ L 3.5-10.5 RED BLOOD CELL COUNT (BEAKER) (test siwl=892) 3.83 M/ L 3.93-5.22 HEMOGLOBIN (BEAKER) (test lijr=475) 10.5 GM/DL 11.2-15.7 HEMATOCRIT (BEAKER) (test hwpi=749) 33.1 % 34.1-44.9 MEAN CORPUSCULAR VOLUME (BEAKER) (test fpve=495) 86.4 fL 79.4-94.8 MEAN CORPUSCULAR HEMOGLOBIN (BEAKER) (test 27.4 pg 25.6-32.2 ogsj=453) MEAN CORPUSCULAR HEMOGLOBIN CONC (BEAKER) (test 31.7 GM/DL 32.2-35.5 ydvd=358) RED CELL DISTRIBUTION WIDTH (BEAKER) (test 14.4 % 11.7-14.4 fznu=610) PLATELET COUNT (BEAKER) (test tfzm=255) 175 K/CU MM 150-450 MEAN PLATELET VOLUME (BEAKER) (test wkby=801) 9.9 fL 9.4-12.3 NUCLEATED RED BLOOD CELLS (BEAKER) (test 0 /100 WBC 0-0 olys=559) NEUTROPHILS RELATIVE PERCENT (BEAKER) (test 73 % dpfa=773) LYMPHOCYTES RELATIVE PERCENT (BEAKER) (test 16 % iofo=195) MONOCYTES RELATIVE PERCENT (BEAKER) (test 7 % jxln=950) EOSINOPHILS RELATIVE PERCENT (BEAKER) (test 4 % vxft=174) BASOPHILS RELATIVE PERCENT (BEAKER) (test 1 % uebf=899) NEUTROPHILS ABSOLUTE COUNT (BEAKER) (test 4.99 K/ L 1.56-6.13 adex=701) LYMPHOCYTES ABSOLUTE COUNT (BEAKER) (test 1.09 K/ L 1.18-3.74 dijo=763) MONOCYTES ABSOLUTE COUNT (BEAKER) (test 0.50 K/ L 0.24-0.36 gpms=215) EOSINOPHILS ABSOLUTE COUNT (BEAKER) (test 0.25 K/ L 0.04-0.36 ivpb=856) BASOPHILS ABSOLUTE COUNT (BEAKER) (test 0.04 K/ L 0.01-0.08 jvhj=829) IMMATURE GRANULOCYTES-RELATIVE PERCENT (BEAKER) 0 % 0-1 (test gpiw=0187) POCT-GLUCOSE [id number] 23:05:00 Test Item Value Reference Range Comments POC-GLUCOSE METER (BEAKER) 412 mg/dL 70-110 Will Repeat Test/TESTED AT (test zirl=7186) [address] [address] POCT-GLUCOSE [id number] 22:12:00 Test Item Value Reference Range Comments POC-GLUCOSE METER (BEAKER) 371 mg/dL 70-110 TESTED AT [address] (test pabt=0273) [facility] [address] BODY FLUID CELL COUNT WITH [id number] 13:06:00 Test Item Value Reference Range Comments APPEARANCE FLUID (BEAKER) (test kgbr=204) Slightly Hazy Clear COLOR FLUID (BEAKER) (test tslv=822) Yellow Colorless, Straw RBC FLUID (BEAKER) (test pfkq=899) 252 /cu mm <=1 ADJUSTED WBC FLUID (BEAKER) (test yecg=0736) 112 /cu mm <=5 LINING CELLS (BEAKER) (test bxdn=1157) 10 /cu mm <=1 NEUTROPHILS FLUID (BEAKER) (test twjj=0822) 8 % LYMPHS FLUID (BEAKER) (test guov=124) 40 % MONO/MACROPHAGE FLUID (BEAKER) (test 43 % ftvm=356) EOSINOPHILS FLUID (BEAKER) (test cghl=561) 0 % BASO FLUID (BEAKER) (test oclb=186) 0 % CONTAINER BODY FLUID (BEAKER) (test EDTA Tube mksm=8594) U/S, [id number] 10:21:00Limit 8 LReason for exam:->ascites, limit 8 [...] skin and deep soft tissues. A 5 Senegalese one-step catheter was inserted and removed from the peritoneal space and approximately 8.0 liters of clear yellow fluid was aspirated from the abdomen. There were no immediate complications. Impression: Successful ultrasound guided paracentesis with aspiration of 8.0 liters of fluid. Signed: Akil Chung MDReport Verified Date/ Time: 02/18/2019 10:21:08 Reading Location: [address] Ultrasound Reading Room [id number] 07:08:00 Test Item Value Reference Range Comments MAGNESIUM (BEAKER) (test clrd=150) 1.7 mg/dL 1.6-2.6 HEPATIC FUNCTION [id number] 07:08:00 Test Item Value Reference Range Comments TOTAL PROTEIN (BEAKER) (test uukc=288) 5.4 gm/dL 6.0-8.3 ALBUMIN (BEAKER) (test vyns=4828) 3.2 g/dL 3.5-5.0 BILIRUBIN TOTAL (BEAKER) (test ioxj=573) 0.8 mg/dL 0.2-1.2 BILIRUBIN DIRECT (BEAKER) (test vczt=445) 0.4 mg/dL 0.1-0.5 ALKALINE PHOSPHATASE (BEAKER) (test lawz=963) 104 U/L 40-150 AST (SGOT) (BEAKER) (test tzzh=114) 20 U/L 5-34 ALT (SGPT) (BEAKER) (test nltc=674) 10 U/L 6-55 COMPREHENSIVE METABOLIC [id number] 07:08:00 Test Item Value Reference Range Comments TOTAL PROTEIN (BEAKER) 5.4 gm/dL 6.0-8.3 (test ginq=287) ALBUMIN (BEAKER) (test 3.2 g/dL 3.5-5.0 sdnf=1909) ALKALINE PHOSPHATASE 104 U/L 40-150 (BEAKER) (test mjvr=136) BILIRUBIN TOTAL (BEAKER) 0.8 mg/dL 0.2-1.2 (test ujnb=842) SODIUM (BEAKER) (test 136 meq/L 136-145 nypm=262) POTASSIUM (BEAKER) (test 4.3 meq/L 3.5-5.1 gcnd=821) CHLORIDE (BEAKER) (test 108 meq/L 98-107 pzuk=748) CO2 (BEAKER) (test 22 meq/L 22-29 pooc=258) BLOOD UREA NITROGEN 31 mg/dL 7-21 (BEAKER) (test vskx=215) CREATININE (BEAKER) (test 1.26 mg/dL 0.57-1.25 ncii=758) GLUCOSE RANDOM (BEAKER) 262 mg/dL 70-105 (test mwle=737) CALCIUM (BEAKER) (test 8.5 mg/dL 8.4-10.2 enqh=212) AST (SGOT) (BEAKER) (test 20 U/L 5-34 xblv=110) ALT (SGPT) (BEAKER) (test 10 U/L 6-55 lcwy=887) EGFR (BEAKER) (test 43 mL/min/1.73 sq m ESTIMATED GFR IS NOT nbbk=6655) ACCURATE CREATININE CLEARANCE IN PREDICTING GLOMERULAR FILTRATION RATE. ESTIMATED GFR IS NOT APPLICABLE FOR DIALYSIS PATIENTS. [id number] 07:07:00 Test Item Value Reference Range Comments PHOSPHORUS (BEAKER) (test ixva=508) 2.7 mg/dL 2.3-4.7 POCT-GLUCOSE [id number] 06:31:00 Test Item Value Reference Range Comments POC-GLUCOSE METER (BEAKER) 249 mg/dL 70-110 TESTED AT [facility] [address] [facility] (test fcbw=3900) [facility] [address] URINALYSIS W/ [id number] 06:17:00 Test Item Value Reference Range Comments COLOR (BEAKER) (test xjip=809) Yellow CLARITY (BEAKER) (test ckvk=603) Clear SPECIFIC GRAVITY UA (BEAKER) (test ezjq=361) 1.013 1.001-1.035 PH UA (BEAKER) (test ypwu=272) 5.0 5.0-8.0 PROTEIN UA (BEAKER) (test dvxe=308) Negative Negative GLUCOSE UA (BEAKER) (test uwfc=178) 100 mg/dL Negative KETONES UA (BEAKER) (test nhnb=529) Negative Negative BILIRUBIN UA (BEAKER) (test elir=667) Negative Negative BLOOD UA (BEAKER) (test glwe=758) Negative Negative NITRITE UA (BEAKER) (test rgvu=336) Negative Negative LEUKOCYTE ESTERASE UA (BEAKER) (test lepg=353) Large Negative UROBILINOGEN UA (BEAKER) (test nqop=015) 0.2 mg/dL 0.2-1.0 RBC UA (BEAKER) (test xvhh=309) 2 /HPF WBC UA (BEAKER) (test jegu=159) 24 /HPF SQUAMOUS EPITHELIAL (BEAKER) (test zuss=556) 14 /HPF HYALINE CASTS (BEAKER) (test vugd=296) 3 /LPF SOURCE(BEAKER) (test cnhq=3365) Urine, Voided [id number] 05:53:00 Test Item Value Reference Range Comments PARTIAL THROMBOPLASTIN TIME (BEAKER) (test 20.1 seconds 22.5-36.0 utsg=276) CALCIUM, [id number] 05:50:00 Test Item Value Reference Range Comments CALCIUM IONIZED (BEAKER) (test nssx=678) 1.00 mmol/L 1.12-1.27 PH, BLOOD (BEAKER) (test izhn=9425) 7.43 PROTHROMBIN [id number] 04:54:00 Test Item Value Reference Range Comments PROTIME (BEAKER) (test iely=941) 13.8 seconds 11.7-14.7 INR (BEAKER) (test cymh=490) 1.0 <=5.9 RECOMMENDED COUMADIN/WARFARIN INR THERAPY RANGESSTANDARD DOSE: 2.0 - 3.0 Includes: PROPHYLAXIS forvenous thrombosis, systemic embolization; TREATMENT for venous thrombosis and/or pulmonary embolus.HIGH RISK: Target INR is 2.5-3.5 for patients with mechanical heart valves.CREATININE, RANDOM [id number] 04: 48:00 Test Item Value Reference Range Comments CREATININE URINE (BEAKER) (test olml=074) 115.9 mg/dL Reference Range: No NormalsPROTEIN, RANDOM [id number] 04:48:00 Test Item Value Reference Range Comments PROTEIN, URINE (BEAKER) (test ckfl=4613) 12 mg/dL 0-14 CBC W/PLT COUNT & AUTO [id number] 04:30:00 Test Item Value Reference Range Comments WHITE BLOOD CELL COUNT (BEAKER) (test hkni=599) 5.2 K/ L 3.5-10.5 RED BLOOD CELL COUNT (BEAKER) (test xhlp=577) 3.58 M/ L 3.93-5.22 HEMOGLOBIN (BEAKER) (test volj=987) 9.8 GM/DL 11.2-15.7 HEMATOCRIT (BEAKER) (test porr=389) 31.6 % 34.1-44.9 MEAN CORPUSCULAR VOLUME (BEAKER) (test jtxz=801) 88.3 fL 79.4-94.8 MEAN CORPUSCULAR HEMOGLOBIN (BEAKER) (test 27.4 pg 25.6-32.2 txnr=628) MEAN CORPUSCULAR HEMOGLOBIN CONC (BEAKER) (test 31.0 GM/DL 32.2-35.5 hlba=857) RED CELL DISTRIBUTION WIDTH (BEAKER) (test 14.4 % 11.7-14.4 fczm=373) PLATELET COUNT (BEAKER) (test ifcl=291) 173 K/CU MM 150-450 MEAN PLATELET VOLUME (BEAKER) (test hhyt=760) 9.6 fL 9.4-12.3 NUCLEATED RED BLOOD CELLS (BEAKER) (test 0 /100 WBC 0-0 zuab=807) NEUTROPHILS RELATIVE PERCENT (BEAKER) (test 67 % kwid=667) LYMPHOCYTES RELATIVE PERCENT (BEAKER) (test 19 % bufh=568) MONOCYTES RELATIVE PERCENT (BEAKER) (test 8 % tutk=571) EOSINOPHILS RELATIVE PERCENT (BEAKER) (test 5 % ougo=582) BASOPHILS RELATIVE PERCENT (BEAKER) (test 1 % zxhg=975) NEUTROPHILS ABSOLUTE COUNT (BEAKER) (test 3.43 K/ L 1.56-6.13 yfan=585) LYMPHOCYTES ABSOLUTE COUNT (BEAKER) (test 0.98 K/ L 1.18-3.74 lksb=342) MONOCYTES ABSOLUTE COUNT (BEAKER) (test 0.42 K/ L 0.24-0.36 fcum=172) EOSINOPHILS ABSOLUTE COUNT (BEAKER) (test 0.26 K/ L 0.04-0.36 zecl=917) BASOPHILS ABSOLUTE COUNT (BEAKER) (test 0.04 K/ L 0.01-0.08 xqrc=605) IMMATURE GRANULOCYTES-RELATIVE PERCENT (BEAKER) 0 % 0-1 (test caiz=4342) U/S, ABDOMINAL, WITH [id number] 03:48:00Reason for exam:->TIPS workup , assess for [...] MDReport Verified Date/Time: 02/18/2019 03:48:21 Reading Location: [address] Neuro Reading Room Electronically signed by: Se SCHNEIDER 2018 03:48 AMPOCT-GLUCOSE [id number] 00:28:00 Test Item Value Reference Range Comments POC-GLUCOSE METER (BEAKER) 330 mg/dL 70-110 Will Repeat Test/TESTED AT (test xyri=2319) [facility] [address] [facility] [address] BODY FLUID CELL COUNT WITH [id number] 18:02:00 Test Item Value Reference Range Comments APPEARANCE FLUID (BEAKER) (test zvmm=227) Clear Clear COLOR FLUID (BEAKER) (test zlsu=072) Yellow Colorless, Straw RBC FLUID (BEAKER) (test bhmw=575) 20 /cu mm <=1 ADJUSTED WBC FLUID (BEAKER) (test lyvb=8715) 50 /cu mm <=5 LINING CELLS (BEAKER) (test snsb=9898) 0 /cu mm <=1 NEUTROPHILS FLUID (BEAKER) (test fzyq=6488) 1 % LYMPHS FLUID (BEAKER) (test exgp=183) 38 % MONO/MACROPHAGE FLUID (BEAKER) (test kqke=955) 61 % EOSINOPHILS FLUID (BEAKER) (test bipc=750) 0 % BASO FLUID (BEAKER) (test cxyu=088) 0 % CONTAINER BODY FLUID (BEAKER) (test gzaa=7255) EDTA Tube U/S, [id number] 16:30:00limit volume to 8 LReason for exam:-> [...] MDReport Verified Date/Time: 02/17 16:30:42 Reading Location: [address] Ultrasound Reading Room POCT-GLUCOSE [id number] 09:48:00 Test Item Value Reference Range Comments POC-GLUCOSE METER (BEAKER) 198 mg/dL 70-110 TESTED AT [address] (test zbst=2811) [facility] [address] BASIC METABOLIC [id number] 06:30:00 Test Item Value Reference Range Comments SODIUM (BEAKER) (test 137 meq/L 136-145 enfp=772) POTASSIUM (BEAKER) (test 4.5 meq/L 3.5-5.1 opwv=192) CHLORIDE (BEAKER) (test 107 meq/L 98-107 wdeo=728) CO2 (BEAKER) (test 24 meq/L 22-29 imez=834) BLOOD UREA NITROGEN 41 mg/dL 7-21 (BEAKER) (test mwpc=548) CREATININE (BEAKER) (test 1.48 mg/dL 0.57-1.25 boux=193) GLUCOSE RANDOM (BEAKER) 200 mg/dL 70-105 (test wqmk=805) CALCIUM (BEAKER) (test 8.9 mg/dL 8.4-10.2 fmip=703) EGFR (BEAKER) (test 36 mL/min/1.73 sq m ESTIMATED GFR IS NOT qnpe=3948) ACCURATE CREATININE CLEARANCE IN PREDICTING GLOMERULAR FILTRATION RATE. ESTIMATED GFR IS NOT APPLICABLE FOR DIALYSIS PATIENTS. POCT-GLUCOSE [id number] 17:31:00 Test Item Value Reference Range Comments POC-GLUCOSE METER (BEAKER) 165 mg/dL 70-110 TESTED AT [facility] [address] [facility] (test iqcb=2881) [facility] [address] U/S, [id number] 16:00:00Reason for exam:->ascites SOBFINAL REPORT PROCEDURE: Ultrasound-guided paracentesis. INDICATION: Ascites. DESCRIPTION: This paracentesis was performed by Lesley Parnell under the direct supervision of Thomas Hendrix. After obtaining informed written consent, ultrasound scan of the abdomen identified ascites in the right lower quadrant. The overlying skin was prepped and draped in the usual, sterile fashion andlocal 2% lidocaine anesthesia was administered. A 5 Senegalese catheter was advanced into the peritonealcavity and 6000 mL of clear yellow fluid was removed. The catheter was removed without immediate complication. Samples were sent for analysis. IMPRESSION: Uncomplicated ultrasound-guided paracentesis with 6000 mL fluid removed. Signed: Thomas Hendrix [facility] Verified Date/Time: 16:00:46 Reading Location: [address] Ultrasound Reading Room BODY FLUID CELL COUNT WITH [id number] 15:52:00 Test Item Value Reference Range Comments APPEARANCE FLUID (BEAKER) (test icta=612) Clear Clear COLOR FLUID (BEAKER) (test naua=481) Yellow Colorless, Straw RBC FLUID (BEAKER) (test hgpi=511) 10 /cu mm <=1 ADJUSTED WBC FLUID (BEAKER) (test jfqv=7843) 80 /cu mm <=5 LINING CELLS (BEAKER) (test mabt=0522) 0 /cu mm <=1 NEUTROPHILS FLUID (BEAKER) (test rzmv=9691) 5 % LYMPHS FLUID (BEAKER) (test iemx=265) 35 % MONO/MACROPHAGE FLUID (BEAKER) (test paaa=944) 59 % EOSINOPHILS FLUID (BEAKER) (test kbqj=822) 1 % BASO FLUID (BEAKER) (test hhnx=184) 0 % CONTAINER BODY FLUID (BEAKER) (test fjer=8552) EDTA Tube BASIC METABOLIC [id number] 07:28:00 Test Item Value Reference Range Comments SODIUM (BEAKER) (test 134 meq/L 136-145 xsoz=348) POTASSIUM (BEAKER) (test 5.0 meq/L 3.5-5.1 knfz=141) CHLORIDE (BEAKER) (test 107 meq/L 98-107 oxvt=218) CO2 (BEAKER) (test 22 meq/L 22-29 cavq=459) BLOOD UREA NITROGEN 46 mg/dL 7-21 (BEAKER) (test nuik=426) CREATININE (BEAKER) (test 1.61 mg/dL 0.57-1.25 ndqi=603) GLUCOSE RANDOM (BEAKER) 220 mg/dL 70-105 (test ukmp=470) CALCIUM (BEAKER) (test 9.0 mg/dL 8.4-10.2 wnms=565) EGFR (BEAKER) (test 33 mL/min/1.73 sq m ESTIMATED GFR IS NOT qruh=5252) ACCURATE CREATININE CLEARANCE IN PREDICTING GLOMERULAR FILTRATION RATE. ESTIMATED GFR IS NOT APPLICABLE FOR DIALYSIS PATIENTS. HEPATIC FUNCTION [id number] 07:28:00 Test Item Value Reference Range Comments TOTAL PROTEIN (BEAKER) (test ffre=701) 5.9 gm/dL 6.0-8.3 ALBUMIN (BEAKER) (test ijrx=1720) 3.0 g/dL 3.5-5.0 BILIRUBIN TOTAL (BEAKER) (test acbf=750) 0.6 mg/dL 0.2-1.2 BILIRUBIN DIRECT (BEAKER) (test rhjo=107) 0.3 mg/dL 0.1-0.5 ALKALINE PHOSPHATASE (BEAKER) (test ywqp=759) 154 U/L 40-150 AST (SGOT) (BEAKER) (test nmla=842) 22 U/L 5-34 ALT (SGPT) (BEAKER) (test zsfb=580) 12 U/L 6-55 [id number] 07:27:00 Test Item Value Reference Range Comments MAGNESIUM (BEAKER) (test pjqx=641) 2.2 mg/dL 1.6-2.6 CBC W/PLT COUNT & AUTO [id number] 07:06:00 Test Item Value Reference Range Comments WHITE BLOOD CELL COUNT (BEAKER) (test buxg=294) 6.2 K/ L 3.5-10.5 RED BLOOD CELL COUNT (BEAKER) (test aszi=954) 3.62 M/ L 3.93-5.22 HEMOGLOBIN (BEAKER) (test wpyz=554) 9.8 GM/DL 11.2-15.7 HEMATOCRIT (BEAKER) (test bmpc=912) 31.4 % 34.1-44.9 MEAN CORPUSCULAR VOLUME (BEAKER) (test xopa=096) 86.7 fL 79.4-94.8 MEAN CORPUSCULAR HEMOGLOBIN (BEAKER) (test 27.1 pg 25.6-32.2 irml=846) MEAN CORPUSCULAR HEMOGLOBIN CONC (BEAKER) (test 31.2 GM/DL 32.2-35.5 trdh=922) RED CELL DISTRIBUTION WIDTH (BEAKER) (test 14.5 % 11.7-14.4 qgzu=300) PLATELET COUNT (BEAKER) (test ieih=400) 198 K/CU MM 150-450 MEAN PLATELET VOLUME (BEAKER) (test xpiy=371) 9.8 fL 9.4-12.3 NUCLEATED RED BLOOD CELLS (BEAKER) (test 0 /100 WBC 0-0 bxic=162) NEUTROPHILS RELATIVE PERCENT (BEAKER) (test 64 % oyqu=131) LYMPHOCYTES RELATIVE PERCENT (BEAKER) (test 22 % ipxl=746) MONOCYTES RELATIVE PERCENT (BEAKER) (test 9 % ykla=098) EOSINOPHILS RELATIVE PERCENT (BEAKER) (test 5 % xwzb=052) BASOPHILS RELATIVE PERCENT (BEAKER) (test 1 % ktro=212) NEUTROPHILS ABSOLUTE COUNT (BEAKER) (test 3.93 K/ L 1.56-6.13 zegc=713) LYMPHOCYTES ABSOLUTE COUNT (BEAKER) (test 1.35 K/ L 1.18-3.74 mbla=098) MONOCYTES ABSOLUTE COUNT (BEAKER) (test 0.53 K/ L 0.24-0.36 imqu=249) EOSINOPHILS ABSOLUTE COUNT (BEAKER) (test 0.28 K/ L 0.04-0.36 tegt=174) BASOPHILS ABSOLUTE COUNT (BEAKER) (test 0.05 K/ L 0.01-0.08 nwlq=206) IMMATURE GRANULOCYTES-RELATIVE PERCENT (BEAKER) 1 % 0-1 (test fxux=1254) [id number] 06:49:00 Test Item Value Reference Range Comments PROTIME (BEAKER) (test uzlb=264) 13.4 seconds 11.7-14.7 INR (BEAKER) (test phvm=324) 1.0 <=5.9 PARTIAL THROMBOPLASTIN TIME (BEAKER) (test 30.9 seconds 22.5-36.0 ruqi=891) RECOMMENDED COUMADIN/WARFARIN INR THERAPY RANGESSTANDARD DOSE: 2.0 - 3.0 Includes: PROPHYLAXIS forvenous thrombosis, systemic embolization; TREATMENT for venous thrombosis and/or pulmonary embolus.HIGH RISK: Target INR is 2.5-3.5 for patients with mechanical heart valves.URINALYSIS W/ REFLEX URINE [id number] 05:32:00 Test Item Value Reference Range Comments COLOR (BEAKER) (test ugxb=173) Yellow CLARITY (BEAKER) (test bnas=536) Hazy SPECIFIC GRAVITY UA (BEAKER) (test cmmt=911) 1.021 1.001-1.035 PH UA (BEAKER) (test bvwu=532) 5.5 5.0-8.0 PROTEIN UA (BEAKER) (test xcln=931) 30 mg/dL Negative GLUCOSE UA (BEAKER) (test hegj=616) Negative Negative KETONES UA (BEAKER) (test sdeo=117) Negative Negative BILIRUBIN UA (BEAKER) (test wdub=387) Negative Negative BLOOD UA (BEAKER) (test kjto=099) Negative Negative NITRITE UA (BEAKER) (test lxvu=499) Negative Negative LEUKOCYTE ESTERASE UA (BEAKER) (test bnla=621) Large Negative UROBILINOGEN UA (BEAKER) (test hvat=340) 2.0 mg/dL 0.2-1.0 RBC UA (BEAKER) (test zzke=474) 7 /HPF WBC UA (BEAKER) (test sjnq=649) 7 /HPF MUCUS (BEAKER) (test fduc=3734) Rare SQUAMOUS EPITHELIAL (BEAKER) (test eonz=584) 6 /HPF HYALINE CASTS (BEAKER) (test jcus=061) 40 /LPF SOURCE(BEAKER) (test imxv=9279) POCT-GLUCOSE [id number] 05:00:00 Test Item Value Reference Range Comments POC-GLUCOSE METER (BEAKER) 227 mg/dL 70-110 TESTED AT [facility] [address] [facility] (test zcho=8494) [facility] [address] ALPHA FETOPROTEIN (AFP), TUMOR [id number] 15:55:00 Test Item Value Reference Range Comments ALPHA-FETOPROTEIN (BEAKER) (test cyet=0007) 3.4 ng/mL <10.0 BASIC METABOLIC [id number] 15:40:00 Test Item Value Reference Range Comments SODIUM (BEAKER) (test 133 meq/L 136-145 hycd=686) POTASSIUM (BEAKER) (test 4.8 meq/L 3.5-5.1 ctow=959) CHLORIDE (BEAKER) (test 101 meq/L 98-107 nakf=195) CO2 (BEAKER) (test 23 meq/L 22-29 hdqq=641) BLOOD UREA NITROGEN 37 mg/dL 7-21 (BEAKER) (test nbhm=605) CREATININE (BEAKER) (test 2.17 mg/dL 0.57-1.25 oktu=937) GLUCOSE RANDOM (BEAKER) 191 mg/dL 70-105 (test zeyb=135) CALCIUM (BEAKER) (test 9.2 mg/dL 8.4-10.2 srmx=649) EGFR (BEAKER) (test 23 mL/min/1.73 sq m ESTIMATED GFR IS NOT zjwm=0535) ACCURATE CREATININE CLEARANCE IN PREDICTING GLOMERULAR FILTRATION RATE. ESTIMATED GFR IS NOT APPLICABLE FOR DIALYSIS PATIENTS. HEPATIC FUNCTION [id number] 15:38:00 Test Item Value Reference Range Comments TOTAL PROTEIN (BEAKER) (test sdkm=095) 6.9 gm/dL 6.0-8.3 ALBUMIN (BEAKER) (test pmqr=6547) 3.7 g/dL 3.5-5.0 BILIRUBIN TOTAL (BEAKER) (test hnhj=933) 0.8 mg/dL 0.2-1.2 BILIRUBIN DIRECT (BEAKER) (test zwjy=178) 0.3 mg/dL 0.1-0.5 ALKALINE PHOSPHATASE (BEAKER) (test dbqh=154) 95 U/L 40-150 AST (SGOT) (BEAKER) (test sstk=617) 24 U/L 5-34 ALT (SGPT) (BEAKER) (test dlrf=110) 14 U/L 6-55 PROTHROMBIN [id number] 15:29:00 Test Item Value Reference Range Comments PROTIME (BEAKER) (test fafx=151) 12.8 seconds 11.7-14.7 INR (BEAKER) (test xfkt=797) 1.0 <=5.9 RECOMMENDED COUMADIN/WARFARIN INR THERAPY RANGESSTANDARD DOSE: 2.0 - 3.0 Includes: PROPHYLAXIS forvenous thrombosis, systemic embolization; TREATMENT for venous thrombosis and/or pulmonary embolus.HIGH RISK: Target INR is 2.5-3.5 for patients with mechanical heart valves.CBC W/PLT COUNT & AUTO [id number] 15:17:00 Test Item Value Reference Range Comments WHITE BLOOD CELL COUNT (BEAKER) (test peoa=767) 7.8 K/ L 3.5-10.5 RED BLOOD CELL COUNT (BEAKER) (test sepl=933) 4.49 M/ L 3.93-5.22 HEMOGLOBIN (BEAKER) (test pfmn=018) 12.4 GM/DL 11.2-15.7 HEMATOCRIT (BEAKER) (test utwv=133) 39.1 % 34.1-44.9 MEAN CORPUSCULAR VOLUME (BEAKER) (test pyzq=436) 87.1 fL 79.4-94.8 MEAN CORPUSCULAR HEMOGLOBIN (BEAKER) (test 27.6 pg 25.6-32.2 cuof=260) MEAN CORPUSCULAR HEMOGLOBIN CONC (BEAKER) (test 31.7 GM/DL 32.2-35.5 ppbo=515) RED CELL DISTRIBUTION WIDTH (BEAKER) (test 14.0 % 11.7-14.4 xeto=664) PLATELET COUNT (BEAKER) (test kdzd=977) 196 K/CU MM 150-450 MEAN PLATELET VOLUME (BEAKER) (test vzei=443) 9.9 fL 9.4-12.3 NUCLEATED RED BLOOD CELLS (BEAKER) (test 0 /100 WBC 0-0 mlhx=271) NEUTROPHILS RELATIVE PERCENT (BEAKER) (test 72 % axmz=834) LYMPHOCYTES RELATIVE PERCENT (BEAKER) (test 18 % bnqn=112) MONOCYTES RELATIVE PERCENT (BEAKER) (test 6 % zpog=357) EOSINOPHILS RELATIVE PERCENT (BEAKER) (test 4 % czlo=378) BASOPHILS RELATIVE PERCENT (BEAKER) (test 1 % nreo=402) NEUTROPHILS ABSOLUTE COUNT (BEAKER) (test 5.62 K/ L 1.56-6.13 xrya=160) LYMPHOCYTES ABSOLUTE COUNT (BEAKER) (test 1.37 K/ L 1.18-3.74 zadn=339) MONOCYTES ABSOLUTE COUNT (BEAKER) (test 0.43 K/ L 0.24-0.36 donw=277) EOSINOPHILS ABSOLUTE COUNT (BEAKER) (test 0.28 K/ L 0.04-0.36 btiq=631) BASOPHILS ABSOLUTE COUNT (BEAKER) (test 0.07 K/ L 0.01-0.08 hbng=289) IMMATURE GRANULOCYTES-RELATIVE PERCENT (BEAKER) 0 % 0-1 (test rbfj=9697) ANTI-MITOCHONDRIAL AB, REFLEX TO [id number] 08:36:00 Test Item Value Reference Range Comments SCAN RESULT (test kwqu=[id number]) OSMOLALITY, [id number] 10:30:00 Test Item Value Reference Range Comments OSMOLALITY, SERUM (BEAKER) (test wcjz=765) 301 mOsm/kg 275-295 POCT-GLUCOSE [id number] 08:26:00 Test Item Value Reference Range Comments POC-GLUCOSE METER (BEAKER) 243 mg/dL 70-110 TESTED AT [address] (test pdqi=8027) [facility] [address] COMPREHENSIVE METABOLIC [id number] 08:05:00 Test Item Value Reference Range Comments TOTAL PROTEIN (BEAKER) 5.5 gm/dL 6.0-8.3 (test bxeu=009) ALBUMIN (BEAKER) (test 3.2 g/dL 3.5-5.0 ocvo=7645) ALKALINE PHOSPHATASE 75 U/L 40-150 (BEAKER) (test atnn=244) BILIRUBIN TOTAL (BEAKER) 0.9 mg/dL 0.2-1.2 (test kari=485) SODIUM (BEAKER) (test 132 meq/L 136-145 wlgn=846) POTASSIUM (BEAKER) (test 4.3 meq/L 3.5-5.1 aifk=629) CHLORIDE (BEAKER) (test 101 meq/L 98-107 etak=021) CO2 (BEAKER) (test 25 meq/L 22-29 pbqt=357) BLOOD UREA NITROGEN 45 mg/dL 7-21 (BEAKER) (test mvet=382) CREATININE (BEAKER) (test 1.89 mg/dL 0.57-1.25 lleg=301) GLUCOSE RANDOM (BEAKER) 241 mg/dL 70-105 (test sccw=450) CALCIUM (BEAKER) (test 8.6 mg/dL 8.4-10.2 xtvc=916) AST (SGOT) (BEAKER) (test 19 U/L 5-34 disp=076) ALT (SGPT) (BEAKER) (test 10 U/L 6-55 fagf=591) EGFR (BEAKER) (test 27 mL/min/1.73 sq m ESTIMATED GFR IS NOT agbr=3087) ACCURATE CREATININE CLEARANCE IN PREDICTING GLOMERULAR FILTRATION RATE. ESTIMATED GFR IS NOT APPLICABLE FOR DIALYSIS PATIENTS. [id number] 08:02:00 Test Item Value Reference Range Comments PHOSPHORUS (BEAKER) (test erau=647) 3.6 mg/dL 2.3-4.7 [id number] 08:02:00 Test Item Value Reference Range Comments MAGNESIUM (BEAKER) (test cmsl=449) 2.0 mg/dL 1.6-2.6 CBC W/PLT COUNT & AUTO [id number] 05:40:00 Test Item Value Reference Range Comments WHITE BLOOD CELL COUNT (BEAKER) (test ylff=101) 5.7 K/ L 3.5-10.5 RED BLOOD CELL COUNT (BEAKER) (test oilt=133) 3.76 M/ L 3.93-5.22 HEMOGLOBIN (BEAKER) (test whib=916) 10.6 GM/DL 11.2-15.7 HEMATOCRIT (BEAKER) (test gdez=519) 32.9 % 34.1-44.9 MEAN CORPUSCULAR VOLUME (BEAKER) (test amvx=570) 87.5 fL 79.4-94.8 MEAN CORPUSCULAR HEMOGLOBIN (BEAKER) (test 28.2 pg 25.6-32.2 hyuw=269) MEAN CORPUSCULAR HEMOGLOBIN CONC (BEAKER) (test 32.2 GM/DL 32.2-35.5 gxkq=136) RED CELL DISTRIBUTION WIDTH (BEAKER) (test 14.2 % 11.7-14.4 bike=945) PLATELET COUNT (BEAKER) (test okze=872) 142 K/CU MM 150-450 MEAN PLATELET VOLUME (BEAKER) (test zlva=152) 9.8 fL 9.4-12.3 NUCLEATED RED BLOOD CELLS (BEAKER) (test 0 /100 WBC 0-0 egpl=423) NEUTROPHILS RELATIVE PERCENT (BEAKER) (test 70 % bcvk=521) LYMPHOCYTES RELATIVE PERCENT (BEAKER) (test 19 % ghbi=813) MONOCYTES RELATIVE PERCENT (BEAKER) (test 7 % gaal=849) EOSINOPHILS RELATIVE PERCENT (BEAKER) (test 3 % pgur=887) BASOPHILS RELATIVE PERCENT (BEAKER) (test 1 % zsws=012) NEUTROPHILS ABSOLUTE COUNT (BEAKER) (test 3.99 K/ L 1.56-6.13 bjbv=375) LYMPHOCYTES ABSOLUTE COUNT (BEAKER) (test 1.05 K/ L 1.18-3.74 kbab=381) MONOCYTES ABSOLUTE COUNT (BEAKER) (test 0.40 K/ L 0.24-0.36 dooi=776) EOSINOPHILS ABSOLUTE COUNT (BEAKER) (test 0.16 K/ L 0.04-0.36 hdnz=658) BASOPHILS ABSOLUTE COUNT (BEAKER) (test 0.04 K/ L 0.01-0.08 ftkh=744) IMMATURE GRANULOCYTES-RELATIVE PERCENT (BEAKER) 0 % 0-1 (test mgnf=3274) CALCIUM, [id number] 05:17:00 Test Item Value Reference Range Comments CALCIUM IONIZED (BEAKER) (test qrji=823) 1.06 mmol/L 1.12-1.27 PH, BLOOD (BEAKER) (test lpos=0782) 7.41 U/S, RENAL, [id number] 03:59:00Reason for exam:->HEMALATHA/CKDShould this be performed at [...] Wilson Verified Date/Time: 11/24/2018 03:59:04 Reading Location: [address] Transitional Reading Room TROPONIN [id number] 23:19:00 Test Item Value Reference Range Comments TROPONIN I (BEAKER) (test aznl=712) < ng/mL 0.00-0.03 Troponin I (TnI) levels [...] acidosis, acute neurological disease, and persistent tachyarrhythmia.POCT-GLUCOSE [id number] 21:12:00 Test Item Value Reference Range Comments POC-GLUCOSE METER (BEAKER) 277 mg/dL 70-110 TESTED AT [address] (test hfiv=5728) [facility] [id number] PROTEIN, RANDOM [id number] 20:11:00 Test Item Value Reference Range Comments PROTEIN, URINE (BEAKER) (test gvuy=9372) 10 mg/dL 0-14 SODIUM, RANDOM [id number] 20:05:00 Test Item Value Reference Range Comments SODIUM URINE (BEAKER) (test bebo=956) < meq/L Reference Range: No NormalsPOCT-GLUCOSE [id number] 17:28:00 Test Item Value Reference Range Comments POC-GLUCOSE METER (BEAKER) 291 mg/dL 70-110 TESTED AT [address] (test emfi=3766) [facility] [address] POCT-GLUCOSE [id number] 14:02:00 Test Item Value Reference Range Comments POC-GLUCOSE METER (BEAKER) 148 mg/dL 70-110 TESTED AT [facility] [address] [facility] (test krdy=9072) [facility] [address] URINALYSIS W/ [id number] 13:32:00 Test Item Value Reference Range Comments COLOR (BEAKER) (test uqsk=850) Yellow CLARITY (BEAKER) (test cgrb=486) Clear SPECIFIC GRAVITY UA (BEAKER) (test 1.015 1.001-1.035 bbau=864) PH UA (BEAKER) (test bght=619) 5.0 5.0-8.0 PROTEIN UA (BEAKER) (test lvoo=134) Negative Negative GLUCOSE UA (BEAKER) (test ituk=823) Negative Negative KETONES UA (BEAKER) (test eucc=612) Negative Negative BILIRUBIN UA (BEAKER) (test kkhx=258) Negative Negative BLOOD UA (BEAKER) (test esnk=752) Negative Negative NITRITE UA (BEAKER) (test lnst=285) Negative Negative LEUKOCYTE ESTERASE UA (BEAKER) (test Negative Negative ukln=755) UROBILINOGEN UA (BEAKER) (test cssk=464) 0.2 mg/dL 0.2-1.0 RBC UA (BEAKER) (test szfl=331) < /HPF WBC UA (BEAKER) (test zxjc=928) 2 /HPF BACTERIA (BEAKER) (test lspe=733) Occasional SQUAMOUS EPITHELIAL (BEAKER) (test 19 /HPF jsnr=467) HYALINE CASTS (BEAKER) (test akyo=430) 5 /LPF AMORPHOUS CRYSTALS (BEAKER) (test Occasional cztc=2059) SOURCE(BEAKER) (test tkdr=5388) Urine, Clean Catch U/S, ABDOMINAL, [id number] 13:29:00Abdomen limited area? Add comment if clarification [...] Valles Verified Date/Time: 11/23/2018 13:29:13 Reading Location: [address] Transitional Reading Room U/S, [id number] 13:01:00Reason for exam:->Therapeutic paracentesisFINAL REPORT Paracentesis dated 11/23/2018 Procedure: Ultrasound-guided paracentesis. Preprocedure diagnosis: Ascites Postprocedure diagnosis: Ascites Conscious sedation: None. Radiologist: Giovanni Haas M.D. Cattle Manager: None Anesthesia: 1% Xylocaine mixed with sodium bicarbonate local anesthesia. Technique: After obtaining informed consent, ultrasound-guided paracentesis was performed under usual sterile technique. Using a 5 cook islander drainage catheter , puncture was made in the right lower quadrant abdomen. Approximately 16,200 cc of serous fluid was removed. Patient tolerated the procedure well without complication. Complication: None Graft/Implant: None Estimated Blood Loss: None Impression: Ultrasound-guided paracentesis. Signed: Giovanni Haas Verified Date/Time: 11/23/2018 13:01:25 Reading Location: [facility] [id number] Ortho Consult Reading Room Electronically signedby: GIOVANNI HAAS M.D. on 2018 01:01 PMCBC W/PLT COUNT & AUTO [id number] 08:55:00 Test Item Value Reference Range Comments WHITE BLOOD CELL COUNT (BEAKER) (test vxsm=159) 5.7 K/ L 3.5-10.5 RED BLOOD CELL COUNT (BEAKER) (test qezy=489) 3.72 M/ L 3.93-5.22 HEMOGLOBIN (BEAKER) (test vyqz=139) 10.5 GM/DL 11.2-15.7 HEMATOCRIT (BEAKER) (test jikf=345) 32.5 % 34.1-44.9 MEAN CORPUSCULAR VOLUME (BEAKER) (test kked=457) 87.4 fL 79.4-94.8 MEAN CORPUSCULAR HEMOGLOBIN (BEAKER) (test 28.2 pg 25.6-32.2 kdlm=341) MEAN CORPUSCULAR HEMOGLOBIN CONC (BEAKER) (test 32.3 GM/DL 32.2-35.5 eypi=714) RED CELL DISTRIBUTION WIDTH (BEAKER) (test 14.5 % 11.7-14.4 wbmc=810) PLATELET COUNT (BEAKER) (test acwk=059) 148 K/CU MM 150-450 MEAN PLATELET VOLUME (BEAKER) (test ntrm=538) 9.4 fL 9.4-12.3 NUCLEATED RED BLOOD CELLS (BEAKER) (test 0 /100 WBC 0-0 nakw=563) NEUTROPHILS RELATIVE PERCENT (BEAKER) (test 63 % bpws=222) LYMPHOCYTES RELATIVE PERCENT (BEAKER) (test 23 % xxas=782) MONOCYTES RELATIVE PERCENT (BEAKER) (test 8 % llzy=849) EOSINOPHILS RELATIVE PERCENT (BEAKER) (test 5 % ergm=437) BASOPHILS RELATIVE PERCENT (BEAKER) (test 1 % dubf=570) NEUTROPHILS ABSOLUTE COUNT (BEAKER) (test 3.61 K/ L 1.56-6.13 hzdo=957) LYMPHOCYTES ABSOLUTE COUNT (BEAKER) (test 1.29 K/ L 1.18-3.74 huvn=025) MONOCYTES ABSOLUTE COUNT (BEAKER) (test 0.47 K/ L 0.24-0.36 jttp=567) EOSINOPHILS ABSOLUTE COUNT (BEAKER) (test 0.28 K/ L 0.04-0.36 kwlu=653) BASOPHILS ABSOLUTE COUNT (BEAKER) (test 0.05 K/ L 0.01-0.08 bqyb=963) IMMATURE GRANULOCYTES-RELATIVE PERCENT (BEAKER) 0 % 0-1 (test hvgi=2459) POCT-GLUCOSE [id number] 07:43:00 Test Item Value Reference Range Comments POC-GLUCOSE METER (BEAKER) 196 mg/dL 70-110 TESTED AT [facility] [address] [facility] (test onef=9768) [facility] [address] [id number] 06:53:00 Test Item Value Reference Range Comments FERRITIN (BEAKER) (test xbpi=899) 52 ng/mL 5-275 HEPATITIS B [id number] 06:21:00 Test Item Value Reference Range Comments HEPATITIS B CORE TOTAL ANTIBODY (BEAKER) (test Nonreactive Nonreactive xoxx=073) HEPATITIS B SURFACE ANTIBODY (BEAKER) (test < mIU/mL <8.0 hyxr=235) HEPATITIS B SURFACE ANTIGEN (2) (BEAKER) (test Nonreactive Nonreactive diqd=0164) HEPATITIS C [id number] 06:20:00 Test Item Value Reference Range Comments HEPATITIS C ANTIBODY (BEAKER) (test vgoh=128) Nonreactive Nonreactive HEPATITIS A [id number] 06:20:00 Test Item Value Reference Range Comments HEPATITIS A IGM ANTIBODY (BEAKER) (test Nonreactive Nonreactive unhe=249) HEPATITIS A IGG ANTIBODY (BEAKER) (test Nonreactive Nonreactive rqqu=1253) ALPHA FETOPROTEIN (AFP), TUMOR [id number] 06:14:00 Test Item Value Reference Range Comments ALPHA-FETOPROTEIN (BEAKER) (test hula=6061) 2.1 ng/mL <10.0 COMPREHENSIVE METABOLIC [id number] 06:01:00 Test Item Value Reference Range Comments TOTAL PROTEIN (BEAKER) 5.9 gm/dL 6.0-8.3 (test ixdn=004) ALBUMIN (BEAKER) (test 2.9 g/dL 3.5-5.0 mngg=1985) ALKALINE PHOSPHATASE 96 U/L 40-150 (BEAKER) (test yipz=500) BILIRUBIN TOTAL (BEAKER) 0.5 mg/dL 0.2-1.2 (test wnmc=474) SODIUM (BEAKER) (test 132 meq/L 136-145 dcqy=015) POTASSIUM (BEAKER) (test 4.3 meq/L 3.5-5.1 zmox=612) CHLORIDE (BEAKER) (test 100 meq/L 98-107 xyst=474) CO2 (BEAKER) (test 26 meq/L 22-29 jlyw=139) BLOOD UREA NITROGEN 50 mg/dL 7-21 (BEAKER) (test hgpr=847) CREATININE (BEAKER) (test 2.27 mg/dL 0.57-1.25 xqbs=526) GLUCOSE RANDOM (BEAKER) 219 mg/dL 70-105 (test dmpl=103) CALCIUM (BEAKER) (test 8.8 mg/dL 8.4-10.2 hffx=396) AST (SGOT) (BEAKER) (test 22 U/L 5-34 mapy=793) ALT (SGPT) (BEAKER) (test 15 U/L 6-55 njpp=150) EGFR (BEAKER) (test 22 mL/min/1.73 sq m ESTIMATED GFR IS NOT gbdq=9897) ACCURATE CREATININE CLEARANCE IN PREDICTING GLOMERULAR FILTRATION RATE. ESTIMATED GFR IS NOT APPLICABLE FOR DIALYSIS PATIENTS. IRON, TIBC, % SAT. (WITHOUT FERRITIN)2018-11-23 05:55:00 Test Item Value Reference Range Comments IRON (BEAKER) (test tbty=873) 46.0 ug/dL 40.0-160.0 TOTAL IRON BINDING CAPACITY (BEAKER) (test 269 ug/dL 250-450 wzqd=997) IRON % SATURATION (2) (BEAKER) (test sgtb=7097) 17 % 20-55 [id number] 05:54:00 Test Item Value Reference Range Comments ALPHA-1 ANTITRYPSIN (BEAKER) (test epzw=841) 202.70 mg/dL 90.00-200.00 COMPREHENSIVE METABOLIC [id number] 00:16:00 Test Item Value Reference Range Comments TOTAL PROTEIN (BEAKER) 6.8 gm/dL 6.0-8.3 (test ooka=032) ALBUMIN (BEAKER) (test 3.3 g/dL 3.5-5.0 jisr=8254) ALKALINE PHOSPHATASE 114 U/L 40-150 (BEAKER) (test fzoc=327) BILIRUBIN TOTAL (BEAKER) 0.6 mg/dL 0.2-1.2 (test beiy=995) SODIUM (BEAKER) (test 130 meq/L 136-145 nkdf=302) POTASSIUM (BEAKER) (test 4.4 meq/L 3.5-5.1 uyfj=075) CHLORIDE (BEAKER) (test 99 meq/L 98-107 rbvt=470) CO2 (BEAKER) (test 22 meq/L 22-29 yomu=721) BLOOD UREA NITROGEN 46 mg/dL 7-21 (BEAKER) (test kckn=654) CREATININE (BEAKER) (test 2.40 mg/dL 0.57-1.25 lvdr=668) GLUCOSE RANDOM (BEAKER) 153 mg/dL 70-105 (test plmf=754) CALCIUM (BEAKER) (test 9.1 mg/dL 8.4-10.2 dfrn=156) AST (SGOT) (BEAKER) (test 25 U/L 5-34 tsei=122) ALT (SGPT) (BEAKER) (test 17 U/L 6-55 kpmq=664) EGFR (BEAKER) (test 21 mL/min/1.73 sq m ESTIMATED GFR IS NOT kxpa=3886) ACCURATE CREATININE CLEARANCE IN PREDICTING GLOMERULAR FILTRATION RATE. ESTIMATED GFR IS NOT APPLICABLE FOR DIALYSIS PATIENTS. [id number] 23:52:00 Test Item Value Reference Range Comments PROTIME (BEAKER) (test dnwb=152) 13.3 seconds 11.7-14.7 INR (BEAKER) (test psub=047) 1.0 <=5.9 PARTIAL THROMBOPLASTIN TIME (BEAKER) (test 26.9 seconds 22.5-36.0 hzor=465) RECOMMENDED COUMADIN/WARFARIN INR THERAPY RANGESSTANDARD DOSE: 2.0 - 3.0 Includes: PROPHYLAXIS forvenous thrombosis, systemic embolization; TREATMENT for venous thrombosis and/or pulmonary embolus.HIGH RISK: Target INR is 2.5-3.5 for patients with mechanical heart valves.POCT-GLUCOSE [id number] 21:25:00 Test Item Value Reference Range Comments POC-GLUCOSE METER (BEAKER) 178 mg/dL 70-110 TESTED AT [facility] [address] [facility] (test wekm=2893) [facility] [address]
--- NOTE | 2019-10-14 12:31 | RAD REPORT ---
EXAM DESCRIPTION: US - Paracentesis Proc Guidance - 10/14/2019 11:35 am CLINICAL HISTORY: Liver disease with ascites FINDINGS: The risks, benefits and alternatives to the procedure were explained to the patient and in formed consent obtained. The skin and subcutaneous tissues were anesthetized with Lidocaine. Under sonographic guidance an 8 F rench catheter was placed into the left lower quadrant. 3.5 liters of yellow fluid removed and sent t o the lab The patient experienced no immediate complication. IMPRESSION: Paracentesis
[2019-10-14 13:31] LABS: Body Fluid WBC 84 /mm^3
[2019-10-14 13:57] VITALS: BMI 46.3
[2019-10-14 14:00] VITALS: BP 120/58; TEMP 97; O2SAT 96
[2019-10-14 16:22] LABS: Appearance CLEAR (CLEAR); Color of fluid Yellow (COLORLESS)
[2019-10-14 16:25] LABS: Body Fluid Source PERITONEAL
== END ==
LOC: DS 08:56
PROVIDERS: ATTEND Internal Medicine Hepatology
DX: R18.8 Other ascites (principal); K76.9 Liver disease, unspecified
CPT/HCPCS: 36415; 89050; 82565; 96365; 49083; 96366; P9047

== ENCOUNTER → 2019-10-22 | Day surgery (SDC) | payer OTHER ==
--- OUTSIDE RECORDS SUMMARY | 2019-10-22 07:29 | XMS REPORT ---
:1960 [facility] Address [address] [place] [address] Dr. Melton [address] [place] [id number] Care Team Providers Name Role Phone DANIEL [...] Reference Range Comments TOTAL PROTEIN (BEAKER) (test dnfq=724) 6.5 gm/dL 6.0-8.3 ALBUMIN (BEAKER) (test gxcg=8911) 3.0 g/dL 3.5-5.0 BILIRUBIN TOTAL (BEAKER) (test xius=160) 1.5 mg/dL 0.2-1.2 BILIRUBIN DIRECT (BEAKER) (test ddkn=473) 0.7 mg/dL 0.1-0.5 ALKALINE PHOSPHATASE (BEAKER) (test boga=527) 120 U/L 40-150 AST (SGOT) (BEAKER) (test tguk=256) 34 U/L 5-34 ALT (SGPT) (BEAKER) (test aqer=772) 21 U/L 6-55 BASIC METABOLIC [id number] 15:39:00 Test Item Value Reference Range Comments SODIUM (BEAKER) (test 135 meq/L 136-145 uktr=951) POTASSIUM (BEAKER) (test 3.8 meq/L 3.5-5.1 ajrb=815) CHLORIDE (BEAKER) (test 99 meq/L 98-107 inrn=170) CO2 (BEAKER) (test 31 meq/L 22-29 xrxx=656) BLOOD UREA NITROGEN 21 mg/dL 7-21 (BEAKER) (test fksz=198) CREATININE (BEAKER) (test 1.70 mg/dL 0.57-1.25 ppnk=822) GLUCOSE RANDOM (BEAKER) 290 mg/dL 70-105 (test pzlf=747) CALCIUM (BEAKER) (test 8.4 mg/dL 8.4-10.2 kzel=062) EGFR (BEAKER) (test 31 mL/min/1.73 sq m ESTIMATED GFR IS NOT xbwe=3725) ACCURATE CREATININE CLEARANCE IN PREDICTING GLOMERULAR FILTRATION RATE. ESTIMATED GFR IS NOT APPLICABLE FOR DIALYSIS PATIENTS. PROTHROMBIN [id number] 15:39:00 Test Item Value Reference Range Comments PROTIME (BEAKER) (test qpvv=395) 14.2 seconds 11.9-14.2 INR (BEAKER) (test oqof=093) 1.2 <=5.9 Effective 04/01/2019: PT Reference Range ChangeNew: 11.9-14.2 Previous: 11.7- 14.7RECOMMENDED COUMADIN/WARFARIN INR THERAPY RANGESSTANDARD DOSE: 2.0-3.0 Includes: PROPHYLAXIS for venous thrombosis, systemic embolization; TREATMENT for venous thrombosis and/or pulmonary embolus.HIGH RISK: Target INR is2.5-3.5 for patients wiht mechanical heart valves.CBC W/PLT COUNT & AUTO [id number] 15:25:00 Test Item Value Reference Range Comments WHITE BLOOD CELL COUNT (BEAKER) (test ujuz=372) 5.8 K/ L 3.5-10.5 RED BLOOD CELL COUNT (BEAKER) (test bykg=259) 3.30 M/ L 3.93-5.22 HEMOGLOBIN (BEAKER) (test fmba=749) 8.9 GM/DL 11.2-15.7 HEMATOCRIT (BEAKER) (test tuhi=671) 28.2 % 34.1-44.9 MEAN CORPUSCULAR VOLUME (BEAKER) (test esfe=676) 85.5 fL 79.4-94.8 MEAN CORPUSCULAR HEMOGLOBIN (BEAKER) (test 27.0 pg 25.6-32.2 ziof=153) MEAN CORPUSCULAR HEMOGLOBIN CONC (BEAKER) (test 31.6 GM/DL 32.2-35.5 zeng=577) RED CELL DISTRIBUTION WIDTH (BEAKER) (test 16.6 % 11.7-14.4 yahj=075) PLATELET COUNT (BEAKER) (test rnco=962) 185 K/CU MM 150-450 MEAN PLATELET VOLUME (BEAKER) (test rmew=288) 9.0 fL 9.4-12.3 NUCLEATED RED BLOOD CELLS (BEAKER) (test 0 /100 WBC 0-0 mpfm=557) NEUTROPHILS RELATIVE PERCENT (BEAKER) (test 50 % qxlb=133) LYMPHOCYTES RELATIVE PERCENT (BEAKER) (test 32 % ntms=663) MONOCYTES RELATIVE PERCENT (BEAKER) (test 7 % qotb=071) EOSINOPHILS RELATIVE PERCENT (BEAKER) (test 10 % csqw=240) BASOPHILS RELATIVE PERCENT (BEAKER) (test 2 % zxba=905) NEUTROPHILS ABSOLUTE COUNT (BEAKER) (test 2.88 K/ L 1.56-6.13 bzxg=185) LYMPHOCYTES ABSOLUTE COUNT (BEAKER) (test 1.86 K/ L 1.18-3.74 rskh=402) MONOCYTES ABSOLUTE COUNT (BEAKER) (test 0.38 K/ L 0.24-0.36 uxsg=901) EOSINOPHILS ABSOLUTE COUNT (BEAKER) (test 0.55 K/ L 0.04-0.36 oytg=145) BASOPHILS ABSOLUTE COUNT (BEAKER) (test 0.10 K/ L 0.01-0.08 hrkx=347) IMMATURE GRANULOCYTES-RELATIVE PERCENT (BEAKER) 0 % 0-1 (test fsim=8910) PROTHROMBIN [id number] 17:20:00 Test Item Value Reference Range Comments PROTIME (BEAKER) (test rika=883) 13.6 seconds 11.9-14.2 INR (BEAKER) (test xhxr=529) 1.1 <=5.9 Effective 04/01/2019: PT Reference Range ChangeNew: 11.9-14.2 Previous: 11.7- 14.7RECOMMENDED COUMADIN/WARFARIN INR THERAPY RANGESSTANDARD DOSE: 2.0-3.0 Includes: PROPHYLAXIS for venous thrombosis, systemic embolization; TREATMENT for venous thrombosis and/or pulmonary embolus.HIGH RISK: Target INR is2.5-3.5 for patients wiht mechanical heart valves.HEPATIC FUNCTION [id number] 17:16 :00 Test Item Value Reference Range Comments TOTAL PROTEIN (BEAKER) (test qonn=334) 6.7 gm/dL 6.0-8.3 ALBUMIN (BEAKER) (test izgo=9158) 3.0 g/dL 3.5-5.0 BILIRUBIN TOTAL (BEAKER) (test wyly=564) 1.4 mg/dL 0.2-1.2 BILIRUBIN DIRECT (BEAKER) (test cpzn=273) 0.7 mg/dL 0.1-0.5 ALKALINE PHOSPHATASE (BEAKER) (test sery=732) 139 U/L 40-150 AST (SGOT) (BEAKER) (test mdfr=234) 32 U/L 5-34 ALT (SGPT) (BEAKER) (test iefy=846) 16 U/L 6-55 BASIC METABOLIC [id number] 17:16:00 Test Item Value Reference Range Comments SODIUM (BEAKER) (test 139 meq/L 136-145 vfcc=533) POTASSIUM (BEAKER) (test 3.6 meq/L 3.5-5.1 xrib=568) CHLORIDE (BEAKER) (test 99 meq/L 98-107 zfsu=387) CO2 (BEAKER) (test 32 meq/L 22-29 lhko=412) BLOOD UREA NITROGEN 26 mg/dL 7-21 (BEAKER) (test ipsl=710) CREATININE (BEAKER) (test 1.68 mg/dL 0.57-1.25 yfpy=359) GLUCOSE RANDOM (BEAKER) 263 mg/dL 70-105 (test vuvw=316) CALCIUM (BEAKER) (test 9.0 mg/dL 8.4-10.2 dpel=660) EGFR (BEAKER) (test 31 mL/min/1.73 sq m ESTIMATED GFR IS NOT mdbf=0953) ACCURATE CREATININE CLEARANCE IN PREDICTING GLOMERULAR FILTRATION RATE. ESTIMATED GFR IS NOT APPLICABLE FOR DIALYSIS PATIENTS. CBC W/PLT COUNT & AUTO [id number] 17:01:00 Test Item Value Reference Range Comments WHITE BLOOD CELL COUNT (BEAKER) (test pocj=699) 7.4 K/ L 3.5-10.5 RED BLOOD CELL COUNT (BEAKER) (test tkib=989) 3.44 M/ L 3.93-5.22 HEMOGLOBIN (BEAKER) (test toor=994) 9.6 GM/DL 11.2-15.7 HEMATOCRIT (BEAKER) (test bacc=604) 30.1 % 34.1-44.9 MEAN CORPUSCULAR VOLUME (BEAKER) (test cuut=407) 87.5 fL 79.4-94.8 MEAN CORPUSCULAR HEMOGLOBIN (BEAKER) (test 27.9 pg 25.6-32.2 msed=500) MEAN CORPUSCULAR HEMOGLOBIN CONC (BEAKER) (test 31.9 GM/DL 32.2-35.5 adfm=998) RED CELL DISTRIBUTION WIDTH (BEAKER) (test 16.0 % 11.7-14.4 oyxw=151) PLATELET COUNT (BEAKER) (test amzn=023) 190 K/CU MM 150-450 MEAN PLATELET VOLUME (BEAKER) (test xvxv=023) 9.3 fL 9.4-12.3 NUCLEATED RED BLOOD CELLS (BEAKER) (test 0 /100 WBC 0-0 zezx=410) NEUTROPHILS RELATIVE PERCENT (BEAKER) (test 65 % tjrz=015) LYMPHOCYTES RELATIVE PERCENT (BEAKER) (test 23 % zfjk=050) MONOCYTES RELATIVE PERCENT (BEAKER) (test 6 % aqrz=662) EOSINOPHILS RELATIVE PERCENT (BEAKER) (test 5 % qbcz=243) BASOPHILS RELATIVE PERCENT (BEAKER) (test 1 % mkuo=403) NEUTROPHILS ABSOLUTE COUNT (BEAKER) (test 4.83 K/ L 1.56-6.13 mxor=583) LYMPHOCYTES ABSOLUTE COUNT (BEAKER) (test 1.67 K/ L 1.18-3.74 wqkd=178) MONOCYTES ABSOLUTE COUNT (BEAKER) (test 0.41 K/ L 0.24-0.36 sncb=857) EOSINOPHILS ABSOLUTE COUNT (BEAKER) (test 0.40 K/ L 0.04-0.36 wwkt=842) BASOPHILS ABSOLUTE COUNT (BEAKER) (test 0.06 K/ L 0.01-0.08 uzjn=828) IMMATURE GRANULOCYTES-RELATIVE PERCENT (BEAKER) 0 % 0-1 (test bpwv=9295) POCT-GLUCOSE [id number] 13:48:00 Test Item Value Reference Range Comments POC-GLUCOSE METER (BEAKER) 203 mg/dL 70-110 TESTED AT [facility] [address] [facility] (test wnnq=2617) [facility] [address] POCT-GLUCOSE [id number] 09:45:00 Test Item Value Reference Range Comments POC-GLUCOSE METER (BEAKER) 168 mg/dL 70-110 TESTED AT [facility] [address] [facility] (test gpvv=4007) [facility] [address] POCT-GLUCOSE [id number] 08:06:00 Test Item Value Reference Range Comments POC-GLUCOSE METER (BEAKER) 177 mg/dL 70-110 TESTED AT [address] (test rtsi=0269) [facility] [address] COMPREHENSIVE METABOLIC [id number] 06:11:00 Test Item Value Reference Range Comments TOTAL PROTEIN (BEAKER) 5.5 gm/dL 6.0-8.3 (test sagp=840) ALBUMIN (BEAKER) (test 3.0 g/dL 3.5-5.0 zpbs=7652) ALKALINE PHOSPHATASE 117 U/L 40-150 (BEAKER) (test tqvj=983) BILIRUBIN TOTAL (BEAKER) 1.2 mg/dL 0.2-1.2 (test vdej=442) SODIUM (BEAKER) (test 138 meq/L 136-145 cazb=621) POTASSIUM (BEAKER) (test 4.1 meq/L 3.5-5.1 vgtn=186) CHLORIDE (BEAKER) (test 102 meq/L 98-107 mndq=540) CO2 (BEAKER) (test 29 meq/L 22-29 gqdt=384) BLOOD UREA NITROGEN 23 mg/dL 7-21 (BEAKER) (test mtai=109) CREATININE (BEAKER) (test 1.26 mg/dL 0.57-1.25 qsuo=444) GLUCOSE RANDOM (BEAKER) 177 mg/dL 70-105 (test nqgh=673) CALCIUM (BEAKER) (test 8.3 mg/dL 8.4-10.2 ipye=108) AST (SGOT) (BEAKER) (test 26 U/L 5-34 vcsa=244) ALT (SGPT) (BEAKER) (test 9 U/L 6-55 suuh=731) EGFR (BEAKER) (test 43 mL/min/1.73 sq m ESTIMATED GFR IS NOT zizt=0977) ACCURATE CREATININE CLEARANCE IN PREDICTING GLOMERULAR FILTRATION RATE. ESTIMATED GFR IS NOT APPLICABLE FOR DIALYSIS PATIENTS. CBC (HEMOGRAM ONLY)2019-06-03 05:17:00 Test Item Value Reference Range Comments WHITE BLOOD CELL COUNT (BEAKER) (test hbxa=312) 6.0 K/ L 3.5-10.5 RED BLOOD CELL COUNT (BEAKER) (test qqqg=781) 2.95 M/ L 3.93-5.22 HEMOGLOBIN (BEAKER) (test mhbf=996) 8.1 GM/DL 11.2-15.7 HEMATOCRIT (BEAKER) (test jzsz=229) 26.3 % 34.1-44.9 MEAN CORPUSCULAR VOLUME (BEAKER) (test uuzm=226) 89.2 fL 79.4-94.8 MEAN CORPUSCULAR HEMOGLOBIN (BEAKER) (test 27.5 pg 25.6-32.2 wouy=990) MEAN CORPUSCULAR HEMOGLOBIN CONC (BEAKER) (test 30.8 GM/DL 32.2-35.5 vqqa=964) RED CELL DISTRIBUTION WIDTH (BEAKER) (test 17.3 % 11.7-14.4 rfqu=179) PLATELET COUNT (BEAKER) (test mzhw=397) 203 K/CU MM 150-450 MEAN PLATELET VOLUME (BEAKER) (test qgfo=975) 9.2 fL 9.4-12.3 NUCLEATED RED BLOOD CELLS (BEAKER) (test 0 /100 WBC 0-0 okev=853) POCT-GLUCOSE [id number] 23:37:00 Test Item Value Reference Range Comments POC-GLUCOSE METER (BEAKER) 212 mg/dL 70-110 TESTED AT [place] [id number] [facility] (test inxr=9088) [facility] [address] POCT-GLUCOSE [id number] 16:58:00 Test Item Value Reference Range Comments POC-GLUCOSE METER (BEAKER) 313 mg/dL 70-110 TESTED AT [address] (test mvwn=7620) [facility] [address] ANG, TIPSS [id number] 14:25:00Reason for exam:->still recurrent paracentesisFINAL REPORT Procedures:1. [...] the patient's medical record by the nurse. Supply Assistant: Akil Chung MD. Financial Recording Clerk: MD Ishaan (Fellow) Approach: 1. Right lower [...] skin and deep soft tissues. A 5 [place] one-step catheter wasinserted and removed from the [...] The needle was exchanged for a 4 [place] micropuncture sheath. The micropuncture sheath was exchanged over a 0.035 Bentson wire for a 5 [place] x 10 cm vascular sheath. The TIPS stent was then cannulated using a 5 [place] C2 catheter and 0.035 angled Glidewire. The [...] Verified Date/Time: 06/02/2019 14:25:34 Reading Location : [place] [address] Angio Body Reading Room POCT-GLUCOSE [id number] 11:52:00 Test Item Value Reference Range Comments POC-GLUCOSE METER (BEAKER) 159 mg/dL 70-110 TESTED AT [facility] [address] [facility] (test hnex=8170) [facility] [address] [id number] 05:55:00 Test Item Value Reference Range Comments MAGNESIUM (BEAKER) (test pimf=933) 1.6 mg/dL 1.6-2.6 COMPREHENSIVE METABOLIC [id number] 05:55:00 Test Item Value Reference Range Comments TOTAL PROTEIN (BEAKER) 5.7 gm/dL 6.0-8.3 (test vqlc=322) ALBUMIN (BEAKER) (test 3.3 g/dL 3.5-5.0 ectt=5196) ALKALINE PHOSPHATASE 118 U/L 40-150 (BEAKER) (test juqq=927) BILIRUBIN TOTAL (BEAKER) 1.4 mg/dL 0.2-1.2 (test qcym=340) SODIUM (BEAKER) (test 140 meq/L 136-145 ylks=114) POTASSIUM (BEAKER) (test 3.3 meq/L 3.5-5.1 zecl=492) CHLORIDE (BEAKER) (test 101 meq/L 98-107 dhrq=808) CO2 (BEAKER) (test 31 meq/L 22-29 vldh=136) BLOOD UREA NITROGEN 23 mg/dL 7-21 (BEAKER) (test wmmj=064) CREATININE (BEAKER) (test 1.33 mg/dL 0.57-1.25 ziag=839) GLUCOSE RANDOM (BEAKER) 131 mg/dL 70-105 (test suio=822) CALCIUM (BEAKER) (test 8.7 mg/dL 8.4-10.2 udrm=776) AST (SGOT) (BEAKER) (test 27 U/L 5-34 kxzw=236) ALT (SGPT) (BEAKER) (test 11 U/L 6-55 exnr=997) EGFR (BEAKER) (test 41 mL/min/1.73 sq m ESTIMATED GFR IS NOT lheh=2203) ACCURATE CREATININE CLEARANCE IN PREDICTING GLOMERULAR FILTRATION RATE. ESTIMATED GFR IS NOT APPLICABLE FOR DIALYSIS PATIENTS. CBC W/PLT COUNT & AUTO [id number] 05:43:00 Test Item Value Reference Range Comments WHITE BLOOD CELL COUNT (BEAKER) (test jfcw=279) 6.0 K/ L 3.5-10.5 RED BLOOD CELL COUNT (BEAKER) (test melb=196) 2.97 M/ L 3.93-5.22 HEMOGLOBIN (BEAKER) (test chgx=240) 8.2 GM/DL 11.2-15.7 HEMATOCRIT (BEAKER) (test mdyg=253) 26.0 % 34.1-44.9 MEAN CORPUSCULAR VOLUME (BEAKER) (test yfzl=102) 87.5 fL 79.4-94.8 MEAN CORPUSCULAR HEMOGLOBIN (BEAKER) (test 27.6 pg 25.6-32.2 bzyy=582) MEAN CORPUSCULAR HEMOGLOBIN CONC (BEAKER) (test 31.5 GM/DL 32.2-35.5 ntly=545) RED CELL DISTRIBUTION WIDTH (BEAKER) (test 17.7 % 11.7-14.4 xkik=897) PLATELET COUNT (BEAKER) (test srzu=132) 194 K/CU MM 150-450 MEAN PLATELET VOLUME (BEAKER) (test wicg=011) 9.3 fL 9.4-12.3 NUCLEATED RED BLOOD CELLS (BEAKER) (test 0 /100 WBC 0-0 ftgz=101) NEUTROPHILS RELATIVE PERCENT (BEAKER) (test 48 % mvgc=775) LYMPHOCYTES RELATIVE PERCENT (BEAKER) (test 31 % ixhp=670) MONOCYTES RELATIVE PERCENT (BEAKER) (test 10 % pqbk=022) EOSINOPHILS RELATIVE PERCENT (BEAKER) (test 9 % gthi=315) BASOPHILS RELATIVE PERCENT (BEAKER) (test 1 % eyzt=848) NEUTROPHILS ABSOLUTE COUNT (BEAKER) (test 2.84 K/ L 1.56-6.13 kmbm=864) LYMPHOCYTES ABSOLUTE COUNT (BEAKER) (test 1.87 K/ L 1.18-3.74 jnsw=848) MONOCYTES ABSOLUTE COUNT (BEAKER) (test 0.60 K/ L 0.24-0.36 dkov=610) EOSINOPHILS ABSOLUTE COUNT (BEAKER) (test 0.56 K/ L 0.04-0.36 rgcf=157) BASOPHILS ABSOLUTE COUNT (BEAKER) (test 0.08 K/ L 0.01-0.08 fhpw=122) IMMATURE GRANULOCYTES-RELATIVE PERCENT (BEAKER) 0 % 0-1 (test irid=8177) [id number] 05:42:00 Test Item Value Reference Range Comments PHOSPHORUS (BEAKER) (test epop=942) 2.3 mg/dL 2.3-4.7 POCT-GLUCOSE [id number] 22:34:00 Test Item Value Reference Range Comments POC-GLUCOSE METER (BEAKER) 192 mg/dL 70-110 TESTED AT [address] (test cooy=4973) [place] [id number] POCT-GLUCOSE [id number] 17:01:00 Test Item Value Reference Range Comments POC-GLUCOSE METER (BEAKER) 250 mg/dL 70-110 TESTED AT [address] (test kfpg=5577) [place] [address] [id number] 07:42:00 Test Item Value Reference Range Comments MAGNESIUM (BEAKER) (test 1.6 mg/dL 1.6-2.6 Specimen slightly hemolyzed kbco=537) [id number] 07:42:00 Test Item Value Reference Range Comments PHOSPHORUS (BEAKER) (test 2.8 mg/dL 2.3-4.7 Specimen slightly hemolyzed wwwm=257) COMPREHENSIVE METABOLIC [id number] 07:42:00 Test Item Value Reference Range Comments TOTAL PROTEIN (BEAKER) 5.5 gm/dL 6.0-8.3 Specimen slightly (test ltnp=962) hemolyzed ALBUMIN (BEAKER) (test 2.9 g/dL 3.5-5.0 Specimen slightly vnbk=1387) hemolyzed ALKALINE PHOSPHATASE 125 U/L 40-150 (BEAKER) (test ewdv=587) BILIRUBIN TOTAL (BEAKER) 1.1 mg/dL 0.2-1.2 Specimen slightly (test lbxh=601) hemolyzed SODIUM (BEAKER) (test 141 meq/L 136-145 jllz=306) POTASSIUM (BEAKER) (test 3.6 meq/L 3.5-5.1 Specimen slightly hjyb=614) hemolyzed CHLORIDE (BEAKER) (test 101 meq/L 98-107 wlyr=016) CO2 (BEAKER) (test 31 meq/L 22-29 gomw=029) BLOOD UREA NITROGEN 23 mg/dL 7-21 (BEAKER) (test pqja=774) CREATININE (BEAKER) (test 1.50 mg/dL 0.57-1.25 Specimen slightly nhos=833) hemolyzed GLUCOSE RANDOM (BEAKER) 153 mg/dL 70-105 (test yhjq=357) CALCIUM (BEAKER) (test 8.7 mg/dL 8.4-10.2 shen=484) AST (SGOT) (BEAKER) (test 35 U/L 5-34 Specimen slightly qzzk=885) hemolyzed ALT (SGPT) (BEAKER) (test 12 U/L 6-55 Specimen slightly exou=655) hemolyzed EGFR (BEAKER) (test 35 mL/min/1.73 sq m ESTIMATED GFR IS NOT rugt=7397) ACCURATE CREATININE CLEARANCE IN PREDICTING GLOMERULAR FILTRATION RATE. ESTIMATED GFR IS NOT APPLICABLE FOR DIALYSIS PATIENTS. POCT-GLUCOSE [id number] 07:38:00 Test Item Value Reference Range Comments POC-GLUCOSE METER (BEAKER) 154 mg/dL 70-110 TESTED AT [facility] [address] [facility] (test uiwf=9042) [facility] [address] CBC W/PLT COUNT & AUTO [id number] 06:24:00 Test Item Value Reference Range Comments WHITE BLOOD CELL COUNT (BEAKER) (test hupp=969) 6.0 K/ L 3.5-10.5 RED BLOOD CELL COUNT (BEAKER) (test sjpe=854) 3.09 M/ L 3.93-5.22 HEMOGLOBIN (BEAKER) (test mpmq=721) 8.5 GM/DL 11.2-15.7 HEMATOCRIT (BEAKER) (test exxq=633) 27.0 % 34.1-44.9 MEAN CORPUSCULAR VOLUME (BEAKER) (test ibqn=487) 87.4 fL 79.4-94.8 MEAN CORPUSCULAR HEMOGLOBIN (BEAKER) (test 27.5 pg 25.6-32.2 qswi=598) MEAN CORPUSCULAR HEMOGLOBIN CONC (BEAKER) (test 31.5 GM/DL 32.2-35.5 ntdn=043) RED CELL DISTRIBUTION WIDTH (BEAKER) (test 17.7 % 11.7-14.4 bmeb=048) PLATELET COUNT (BEAKER) (test dkve=564) 196 K/CU MM 150-450 MEAN PLATELET VOLUME (BEAKER) (test ilhw=576) 8.9 fL 9.4-12.3 NUCLEATED RED BLOOD CELLS (BEAKER) (test 0 /100 WBC 0-0 ufpe=864) NEUTROPHILS RELATIVE PERCENT (BEAKER) (test 44 % mwcb=746) LYMPHOCYTES RELATIVE PERCENT (BEAKER) (test 34 % derx=603) MONOCYTES RELATIVE PERCENT (BEAKER) (test 11 % glcx=803) EOSINOPHILS RELATIVE PERCENT (BEAKER) (test 9 % nuth=989) BASOPHILS RELATIVE PERCENT (BEAKER) (test 2 % ehpg=665) NEUTROPHILS ABSOLUTE COUNT (BEAKER) (test 2.64 K/ L 1.56-6.13 lbqt=523) LYMPHOCYTES ABSOLUTE COUNT (BEAKER) (test 2.03 K/ L 1.18-3.74 qoun=187) MONOCYTES ABSOLUTE COUNT (BEAKER) (test 0.64 K/ L 0.24-0.36 hrtg=964) EOSINOPHILS ABSOLUTE COUNT (BEAKER) (test 0.54 K/ L 0.04-0.36 iryh=120) BASOPHILS ABSOLUTE COUNT (BEAKER) (test 0.09 K/ L 0.01-0.08 lsot=955) IMMATURE GRANULOCYTES-RELATIVE PERCENT (BEAKER) 0 % 0-1 (test kqwf=7405) CALCIUM, [id number] 05:35:00 Test Item Value Reference Range Comments CALCIUM IONIZED (BEAKER) (test nhtm=778) 0.99 mmol/L 1.12-1.27 PH, BLOOD (BEAKER) (test fbwl=8138) 7.50 POCT-GLUCOSE [id number] 22:12:00 Test Item Value Reference Range Comments POC-GLUCOSE METER (BEAKER) 246 mg/dL 70-110 TESTED AT [address] (test exzb=8023) [facility] [address] POCT-GLUCOSE [id number] 17:11:00 Test Item Value Reference Range Comments POC-GLUCOSE METER (BEAKER) 201 mg/dL 70-110 TESTED AT [facility] [address] [facility] (test afic=0809) [facility] [address] POCT-GLUCOSE [id number] 13:24:00 Test Item Value Reference Range Comments POC-GLUCOSE METER (BEAKER) 173 mg/dL 70-110 TESTED AT [place] [id number] [facility] (test dvzv=5927) [facility] [address] COMPREHENSIVE METABOLIC [id number] 09:06:00 Test Item Value Reference Range Comments TOTAL PROTEIN (BEAKER) 5.8 gm/dL 6.0-8.3 (test zsni=518) ALBUMIN (BEAKER) (test 3.2 g/dL 3.5-5.0 zgqw=9003) ALKALINE PHOSPHATASE 125 U/L 40-150 (BEAKER) (test hbvz=689) BILIRUBIN TOTAL (BEAKER) 1.6 mg/dL 0.2-1.2 (test ucyz=506) SODIUM (BEAKER) (test 140 meq/L 136-145 pyss=924) POTASSIUM (BEAKER) (test 3.4 meq/L 3.5-5.1 hyyy=183) CHLORIDE (BEAKER) (test 100 meq/L 98-107 qkue=143) CO2 (BEAKER) (test 31 meq/L 22-29 yhou=102) BLOOD UREA NITROGEN 21 mg/dL 7-21 (BEAKER) (test rqfx=384) CREATININE (BEAKER) (test 1.57 mg/dL 0.57-1.25 lawm=681) GLUCOSE RANDOM (BEAKER) 138 mg/dL 70-105 (test hpke=011) CALCIUM (BEAKER) (test 8.9 mg/dL 8.4-10.2 ztki=327) AST (SGOT) (BEAKER) (test 33 U/L 5-34 rxbl=515) ALT (SGPT) (BEAKER) (test 13 U/L 6-55 cqsh=137) EGFR (BEAKER) (test 33 mL/min/1.73 sq m ESTIMATED GFR IS NOT ixtn=8579) ACCURATE CREATININE CLEARANCE IN PREDICTING GLOMERULAR FILTRATION RATE. ESTIMATED GFR IS NOT APPLICABLE FOR DIALYSIS PATIENTS. Specimen slightly ictericPOCT-GLUCOSE [id number] 07:53:00 Test Item Value Reference Range Comments POC-GLUCOSE METER (BEAKER) 157 mg/dL 70-110 TESTED AT [address] (test jssi=6693) [facility] [address] CBC (HEMOGRAM ONLY)2019-05-31 06:33:00 Test Item Value Reference Range Comments WHITE BLOOD CELL COUNT (BEAKER) (test lrob=046) 5.7 K/ L 3.5-10.5 RED BLOOD CELL COUNT (BEAKER) (test lytq=031) 3.25 M/ L 3.93-5.22 HEMOGLOBIN (BEAKER) (test amuz=465) 8.9 GM/DL 11.2-15.7 HEMATOCRIT (BEAKER) (test anye=598) 28.3 % 34.1-44.9 MEAN CORPUSCULAR VOLUME (BEAKER) (test wzcc=996) 87.1 fL 79.4-94.8 MEAN CORPUSCULAR HEMOGLOBIN (BEAKER) (test 27.4 pg 25.6-32.2 mkzz=681) MEAN CORPUSCULAR HEMOGLOBIN CONC (BEAKER) (test 31.4 GM/DL 32.2-35.5 gfqn=628) RED CELL DISTRIBUTION WIDTH (BEAKER) (test 17.5 % 11.7-14.4 gmur=464) PLATELET COUNT (BEAKER) (test xren=781) 188 K/CU MM 150-450 MEAN PLATELET VOLUME (BEAKER) (test sbda=441) 9.1 fL 9.4-12.3 NUCLEATED RED BLOOD CELLS (BEAKER) (test 0 /100 WBC 0-0 uoje=519) POCT-GLUCOSE [id number] 22:28:00 Test Item Value Reference Range Comments POC-GLUCOSE METER (BEAKER) 193 mg/dL 70-110 TESTED AT [address] (test pcqg=4738) [facility] [address] POCT-GLUCOSE [id number] 17:19:00 Test Item Value Reference Range Comments POC-GLUCOSE METER (BEAKER) 155 mg/dL 70-110 TESTED AT [address] (test qzrb=8313) [facility] [address] POCT-GLUCOSE [id number] 12:44:00 Test Item Value Reference Range Comments POC-GLUCOSE METER (BEAKER) 189 mg/dL 70-110 TESTED AT [facility] [address] [facility] (test yskk=9046) [facility] [address] POCT-GLUCOSE [id number] 08:30:00 Test Item Value Reference Range Comments POC-GLUCOSE METER (BEAKER) 140 mg/dL 70-110 TESTED AT [facility] [address] [facility] (test kafw=0468) [facility] [address] [id number] 05:15:00 Test Item Value Reference Range Comments THYROID STIMULATING HORMONE (BEAKER) (test 6.32 uIU/mL 0.35-4.94 acah=922) T4, [id number] 05:11:00 Test Item Value Reference Range Comments FREE T4 (BEAKER) (test bncz=363) 1.70 ng/dL 0.70-1.48 [id number] 04:53:00 Test Item Value Reference Range Comments PHOSPHORUS (BEAKER) (test zglr=511) 2.4 mg/dL 2.3-4.7 [id number] 04:53:00 Test Item Value Reference Range Comments MAGNESIUM (BEAKER) (test stxm=026) 1.8 mg/dL 1.6-2.6 COMPREHENSIVE METABOLIC [id number] 04:53:00 Test Item Value Reference Range Comments TOTAL PROTEIN (BEAKER) 5.1 gm/dL 6.0-8.3 (test ewai=049) ALBUMIN (BEAKER) (test 2.9 g/dL 3.5-5.0 vmmg=2533) ALKALINE PHOSPHATASE 101 U/L 40-150 (BEAKER) (test rrbq=769) BILIRUBIN TOTAL (BEAKER) 1.6 mg/dL 0.2-1.2 (test oyiq=891) SODIUM (BEAKER) (test 137 meq/L 136-145 qrzu=781) POTASSIUM (BEAKER) (test 3.7 meq/L 3.5-5.1 nplx=365) CHLORIDE (BEAKER) (test 99 meq/L 98-107 fogr=599) CO2 (BEAKER) (test 32 meq/L 22-29 cvqi=993) BLOOD UREA NITROGEN 20 mg/dL 7-21 (BEAKER) (test ybbp=855) CREATININE (BEAKER) (test 1.55 mg/dL 0.57-1.25 zite=599) GLUCOSE RANDOM (BEAKER) 157 mg/dL 70-105 (test drnb=177) CALCIUM (BEAKER) (test 8.3 mg/dL 8.4-10.2 xlxb=242) AST (SGOT) (BEAKER) (test 33 U/L 5-34 atml=886) ALT (SGPT) (BEAKER) (test 12 U/L 6-55 mzuk=079) EGFR (BEAKER) (test 34 mL/min/1.73 sq m ESTIMATED GFR IS NOT timk=2474) ACCURATE CREATININE CLEARANCE IN PREDICTING GLOMERULAR FILTRATION RATE. ESTIMATED GFR IS NOT APPLICABLE FOR DIALYSIS PATIENTS. CBC (HEMOGRAM ONLY)2019-05-30 04:13:00 Test Item Value Reference Range Comments WHITE BLOOD CELL COUNT (BEAKER) (test rtyl=393) 5.3 K/ L 3.5-10.5 RED BLOOD CELL COUNT (BEAKER) (test ezju=155) 2.75 M/ L 3.93-5.22 HEMOGLOBIN (BEAKER) (test izpr=628) 7.6 GM/DL 11.2-15.7 HEMATOCRIT (BEAKER) (test ptik=402) 24.2 % 34.1-44.9 MEAN CORPUSCULAR VOLUME (BEAKER) (test wrkn=779) 88.0 fL 79.4-94.8 MEAN CORPUSCULAR HEMOGLOBIN (BEAKER) (test 27.6 pg 25.6-32.2 ppsa=592) MEAN CORPUSCULAR HEMOGLOBIN CONC (BEAKER) (test 31.4 GM/DL 32.2-35.5 ezqd=663) RED CELL DISTRIBUTION WIDTH (BEAKER) (test 17.4 % 11.7-14.4 rskj=391) PLATELET COUNT (BEAKER) (test tdxs=450) 162 K/CU MM 150-450 MEAN PLATELET VOLUME (BEAKER) (test edec=097) 9.2 fL 9.4-12.3 NUCLEATED RED BLOOD CELLS (BEAKER) (test 0 /100 WBC 0-0 xfuj=421) CALCIUM, [id number] 04:13:00 Test Item Value Reference Range Comments CALCIUM IONIZED (BEAKER) (test arkl=930) 0.98 mmol/L 1.12-1.27 PH, BLOOD (BEAKER) (test kvgw=7119) 7.58 RAD, CHEST, 2 [id number] 23:47:00Reason for exam:->opacitiesFINAL REPORT Portable chest. HISTORY: [...] MDReport Verified Date/Time: 05/29/2019 23:47:08 Reading Location: [address] Consult Reading Room POCT-GLUCOSE [id number] 23:12:00 Test Item Value Reference Range Comments POC-GLUCOSE METER (BEAKER) 192 mg/dL 70-110 TESTED AT [address] (test khbm=3024) [facility] [address] URINALYSIS W/ [id number] 18:14:00 Test Item Value Reference Range Comments COLOR (BEAKER) (test xpdd=776) Yellow CLARITY (BEAKER) (test bxce=282) Clear SPECIFIC GRAVITY UA (BEAKER) (test 1.011 1.001-1.035 yffz=470) PH UA (BEAKER) (test bxvr=375) 8.5 5.0-8.0 PROTEIN UA (BEAKER) (test bllv=063) 20 mg/dL Negative GLUCOSE UA (BEAKER) (test xyms=166) Negative Negative KETONES UA (BEAKER) (test tsnb=699) Negative Negative BILIRUBIN UA (BEAKER) (test hvvh=345) Negative Negative BLOOD UA (BEAKER) (test dmek=744) Negative Negative NITRITE UA (BEAKER) (test hmak=802) Negative Negative LEUKOCYTE ESTERASE UA (BEAKER) (test Negative Negative jycc=010) UROBILINOGEN UA (BEAKER) (test jtjm=171) 12.0 mg/dL 0.2-1.0 RBC UA (BEAKER) (test gafi=041) < /HPF WBC UA (BEAKER) (test qfyr=747) 1 /HPF BACTERIA (BEAKER) (test xtbj=808) Rare SQUAMOUS EPITHELIAL (BEAKER) (test 3 /HPF tizi=813) SOURCE(BEAKER) (test mgcp=7802) Urine, Clean Catch POCT-GLUCOSE [id number] 16:55:00 Test Item Value Reference Range Comments POC-GLUCOSE METER (BEAKER) 186 mg/dL 70-110 TESTED AT [address] (test jmmk=5939) [facility] [address] TISSUE [id number] 15:15:00Surgical Pathology Report Case: [id number] Authorizing Provider: Shannen Giron MD Collected: 05/28/2019 1448 Ordering Location: [address] Received: 05/29/2019 0915 Service Pathologist: Padilla Reed MD Specimen: Polyp, Colon - Right/Ascending, taken by doug pathak PART A RIGHT ASCENDING COLON POLYP, POLYPECTOMY:TUBULAR ADENOMA. Signing Pathologist Direct Phone Line: [phone] signed by Padilla Reed MD on 05/29/2019 at 3:15 [id number] colonoscopyRight ascending colonReceived in formalin, labelled with the patients name, date of , and medical record number and labelled "right ascending colon polyp" are three portions of silva tissue measuring 0.5 x 0.4 x 0.3 cm in aggregate. Submitted in toto in one cassette. Performed.BODY FLUID CULTURE + GRAM [id number] 12:56:00 Test Item Value Reference Range Comments CULTURE (BEAKER) (test bgxj=3675) No growth GRAM STAIN RESULT (BEAKER) (test No WBCs vmlf=2674) GRAM STAIN RESULT (BEAKER) (test No organisms seen bzpe=08523) POCT-GLUCOSE [id number] 12:37:00 Test Item Value Reference Range Comments POC-GLUCOSE METER (BEAKER) 154 mg/dL 70-110 TESTED AT [address] (test enya=0951) [place] [id number] POCT-GLUCOSE [id number] 09:12:00 Test Item Value Reference Range Comments POC-GLUCOSE METER (BEAKER) 76 mg/dL 70-110 TESTED AT [address] (test znvr=4757) [facility] [address] COMPREHENSIVE METABOLIC [id number] 08:19:00 Test Item Value Reference Range Comments TOTAL PROTEIN (BEAKER) 4.9 gm/dL 6.0-8.3 (test atpl=864) ALBUMIN (BEAKER) (test 3.0 g/dL 3.5-5.0 zifl=5580) ALKALINE PHOSPHATASE 88 U/L 40-150 (BEAKER) (test etdx=560) BILIRUBIN TOTAL (BEAKER) 1.9 mg/dL 0.2-1.2 (test uyps=845) SODIUM (BEAKER) (test 141 meq/L 136-145 jtyo=449) POTASSIUM (BEAKER) (test 3.5 meq/L 3.5-5.1 vqny=839) CHLORIDE (BEAKER) (test 100 meq/L 98-107 jrxu=048) CO2 (BEAKER) (test 34 meq/L 22-29 gzck=964) BLOOD UREA NITROGEN 18 mg/dL 7-21 (BEAKER) (test jydi=960) CREATININE (BEAKER) (test 1.50 mg/dL 0.57-1.25 rwae=460) GLUCOSE RANDOM (BEAKER) 92 mg/dL 70-105 (test pxhw=214) CALCIUM (BEAKER) (test 8.5 mg/dL 8.4-10.2 yaxa=063) AST (SGOT) (BEAKER) (test 27 U/L 5-34 anso=724) ALT (SGPT) (BEAKER) (test 10 U/L 6-55 bztr=981) EGFR (BEAKER) (test 35 mL/min/1.73 sq m ESTIMATED GFR IS NOT vcmg=4398) ACCURATE CREATININE CLEARANCE IN PREDICTING GLOMERULAR FILTRATION RATE. ESTIMATED GFR IS NOT APPLICABLE FOR DIALYSIS PATIENTS. Specimen slightly [id number] 08:18:00 Test Item Value Reference Range Comments PHOSPHORUS (BEAKER) (test eeej=319) 2.8 mg/dL 2.3-4.7 [id number] 08:18:00 Test Item Value Reference Range Comments MAGNESIUM (BEAKER) (test yslq=953) 2.0 mg/dL 1.6-2.6 CBC W/PLT COUNT & AUTO [id number] 05:59:00 Test Item Value Reference Range Comments WHITE BLOOD CELL COUNT (BEAKER) (test bxoz=952) 5.3 K/ L 3.5-10.5 RED BLOOD CELL COUNT (BEAKER) (test heuc=573) 2.79 M/ L 3.93-5.22 HEMOGLOBIN (BEAKER) (test txxn=416) 7.7 GM/DL 11.2-15.7 HEMATOCRIT (BEAKER) (test jyhc=287) 24.8 % 34.1-44.9 MEAN CORPUSCULAR VOLUME (BEAKER) (test pwwg=166) 88.9 fL 79.4-94.8 MEAN CORPUSCULAR HEMOGLOBIN (BEAKER) (test 27.6 pg 25.6-32.2 bpli=860) MEAN CORPUSCULAR HEMOGLOBIN CONC (BEAKER) (test 31.0 GM/DL 32.2-35.5 ohbt=845) RED CELL DISTRIBUTION WIDTH (BEAKER) (test 17.6 % 11.7-14.4 ydii=738) PLATELET COUNT (BEAKER) (test ytdx=138) 146 K/CU MM 150-450 MEAN PLATELET VOLUME (BEAKER) (test qhka=725) 9.6 fL 9.4-12.3 NUCLEATED RED BLOOD CELLS (BEAKER) (test 0 /100 WBC 0-0 fpby=365) NEUTROPHILS RELATIVE PERCENT (BEAKER) (test 46 % ffjv=876) LYMPHOCYTES RELATIVE PERCENT (BEAKER) (test 31 % eurd=256) MONOCYTES RELATIVE PERCENT (BEAKER) (test 11 % lnnq=012) EOSINOPHILS RELATIVE PERCENT (BEAKER) (test 10 % tooc=118) BASOPHILS RELATIVE PERCENT (BEAKER) (test 2 % rzhq=471) NEUTROPHILS ABSOLUTE COUNT (BEAKER) (test 2.46 K/ L 1.56-6.13 kzyt=394) LYMPHOCYTES ABSOLUTE COUNT (BEAKER) (test 1.66 K/ L 1.18-3.74 sjnx=849) MONOCYTES ABSOLUTE COUNT (BEAKER) (test 0.57 K/ L 0.24-0.36 hwix=075) EOSINOPHILS ABSOLUTE COUNT (BEAKER) (test 0.52 K/ L 0.04-0.36 kgub=197) BASOPHILS ABSOLUTE COUNT (BEAKER) (test 0.08 K/ L 0.01-0.08 yeqr=042) IMMATURE GRANULOCYTES-RELATIVE PERCENT (BEAKER) 0 % 0-1 (test mnej=6292) CALCIUM, [id number] 05:04:00 Test Item Value Reference Range Comments CALCIUM IONIZED (BEAKER) (test uunh=561) 1.02 mmol/L 1.12-1.27 PH, BLOOD (BEAKER) (test rsku=2063) 7.50 POCT-GLUCOSE [id number] 21:27:00 Test Item Value Reference Range Comments POC-GLUCOSE METER (BEAKER) 139 mg/dL 70-110 TESTED AT [address] (test fdkj=0865) [place] [address] BASIC METABOLIC [id number] 18:28:00 Test Item Value Reference Range Comments SODIUM (BEAKER) (test 142 meq/L 136-145 cbqy=667) POTASSIUM (BEAKER) (test 3.5 meq/L 3.5-5.1 ukyu=835) CHLORIDE (BEAKER) (test 99 meq/L 98-107 hble=367) CO2 (BEAKER) (test 37 meq/L 22-29 gxzv=136) BLOOD UREA NITROGEN 17 mg/dL 7-21 (BEAKER) (test rzgp=138) CREATININE (BEAKER) (test 1.38 mg/dL 0.57-1.25 fstb=664) GLUCOSE RANDOM (BEAKER) 78 mg/dL 70-105 (test nkwk=151) CALCIUM (BEAKER) (test 8.5 mg/dL 8.4-10.2 cpck=485) EGFR (BEAKER) (test 39 mL/min/1.73 sq m ESTIMATED GFR IS NOT kgoo=6126) ACCURATE CREATININE CLEARANCE IN PREDICTING GLOMERULAR FILTRATION RATE. ESTIMATED GFR IS NOT APPLICABLE FOR DIALYSIS PATIENTS. Call [id number] with resultsSpecimen slightly ictericPOCT-GLUCOSE [id number] 18:10:00 Test Item Value Reference Range Comments POC-GLUCOSE METER (BEAKER) 82 mg/dL 70-110 TESTED AT [address] (test grkz=3318) [place] [id number] CBC W/PLT COUNT & AUTO [id number] 11:56:00 Test Item Value Reference Range Comments WHITE BLOOD CELL COUNT (BEAKER) (test oake=155) 5.0 K/ L 3.5-10.5 RED BLOOD CELL COUNT (BEAKER) (test yeyn=977) 2.82 M/ L 3.93-5.22 HEMOGLOBIN (BEAKER) (test ason=497) 7.9 GM/DL 11.2-15.7 HEMATOCRIT (BEAKER) (test tdav=623) 25.0 % 34.1-44.9 MEAN CORPUSCULAR VOLUME (BEAKER) (test erla=818) 88.7 fL 79.4-94.8 MEAN CORPUSCULAR HEMOGLOBIN (BEAKER) (test 28.0 pg 25.6-32.2 gyde=876) MEAN CORPUSCULAR HEMOGLOBIN CONC (BEAKER) (test 31.6 GM/DL 32.2-35.5 ezmt=343) RED CELL DISTRIBUTION WIDTH (BEAKER) (test 17.6 % 11.7-14.4 shos=807) PLATELET COUNT (BEAKER) (test gpdg=605) 155 K/CU MM 150-450 MEAN PLATELET VOLUME (BEAKER) (test fzeu=068) 9.5 fL 9.4-12.3 NUCLEATED RED BLOOD CELLS (BEAKER) (test 0 /100 WBC 0-0 svjs=382) (CELLAVISION MANUAL DIFF)2019-05-28 11:56:00 Test Item Value Reference Range Comments NEUTROPHILS - REL (CELLAVISION)(BEAKER) (test 69 % kmqs=1849) LYMPHOCYTES - REL (CELLAVISION)(BEAKER) (test 21 % xuoq=1306) MONOCYTES - REL (CELLAVISION)(BEAKER) (test 3 % sgwm=3085) EOSINOPHILS - REL (CELLAVISION)(BEAKER) (test 5 % eemp=4385) BASOPHILS - REL (CELLAVISION)(BEAKER) (test 1 % bzfy=1229) MYELOCYTES - REL (CELLAVISION)(BEAKER) (test 1 % 0-0 wlwk=9644) NEUTROPHILS - ABS (CELLAVISION)(BEAKER) (test 3.45 K/ul 1.56-6.13 gfyd=0535) LYMPHOCYTES - ABS (CELLAVISION)(BEAKER) (test 1.05 K/ul 1.18-3.74 ebca=6247) MONOCYTES - ABS (CELLAVISION)(BEAKER) (test 0.15 K/uL 0.24-0.36 bzzr=4115) EOSINOPHILS - ABS (CELLAVISION)(BEAKER) (test 0.25 K/uL 0.04-0.36 jhks=5562) BASOPHILS - ABS (CELLAVISION)(BEAKER) (test 0.05 K/uL 0.01-0.08 pqnz=8846) MYELOCYTES-ABS (CELLAVISION)(BEAKER) (test 0.05 K/uL 0.00-0.00 yfpu=4383) TOTAL COUNTED (BEAKER) (test tpqu=2437) 100 PLT MORPHOLOGY (BEAKER) (test szdc=456) Normal SMUDGE CELLS (BEAKER) (test idxq=0301) Present POLYCHROMATOPHILLIC RBCS(BEAKER) (test olpn=974) 1+ few ANISOCYTOSIS (BEAKER) (test adic=611) 2+ moderate MICROCYTES (BEAKER) (test vpun=750) 2+ moderate POIKILOCYTES (BEAKER) (test yrzc=162) 1+ few SPHEROCYTES (BEAKER) (test mknn=065) 1+ few PLATELET CONCENTRATION (CELLAVISION)(BEAKER) Adequate (test zjpo=3328) Received comment: User comments: Slide comments:POCT-GLUCOSE [id number] 10: 05:00 Test Item Value Reference Range Comments POC-GLUCOSE METER (BEAKER) 82 mg/dL 70-110 TESTED AT [address] (test jmbt=1984) [facility] [address] POCT-GLUCOSE [id number] 09:07:00 Test Item Value Reference Range Comments POC-GLUCOSE METER (BEAKER) 84 mg/dL 70-110 TESTED AT [address] (test rnmh=0425) [facility] [address] [id number] 06:31:00 Test Item Value Reference Range Comments PHOSPHORUS (BEAKER) (test zuif=123) 2.5 mg/dL 2.3-4.7 [id number] 06:31:00 Test Item Value Reference Range Comments MAGNESIUM (BEAKER) (test vxvi=749) 1.7 mg/dL 1.6-2.6 COMPREHENSIVE METABOLIC [id number] 06:31:00 Test Item Value Reference Range Comments TOTAL PROTEIN (BEAKER) 4.9 gm/dL 6.0-8.3 (test kjhw=223) ALBUMIN (BEAKER) (test 3.1 g/dL 3.5-5.0 nguc=3432) ALKALINE PHOSPHATASE 82 U/L 40-150 (BEAKER) (test gudx=771) BILIRUBIN TOTAL (BEAKER) 2.3 mg/dL 0.2-1.2 (test tgxt=027) SODIUM (BEAKER) (test 143 meq/L 136-145 oumj=032) POTASSIUM (BEAKER) (test 3.5 meq/L 3.5-5.1 pkhe=287) CHLORIDE (BEAKER) (test 100 meq/L 98-107 umqz=032) CO2 (BEAKER) (test 37 meq/L 22-29 ahsg=387) BLOOD UREA NITROGEN 16 mg/dL 7-21 (BEAKER) (test uwno=883) CREATININE (BEAKER) (test 1.37 mg/dL 0.57-1.25 kymd=733) GLUCOSE RANDOM (BEAKER) 96 mg/dL 70-105 (test zqad=554) CALCIUM (BEAKER) (test 8.6 mg/dL 8.4-10.2 lpyr=622) AST (SGOT) (BEAKER) (test 30 U/L 5-34 ukrl=063) ALT (SGPT) (BEAKER) (test 10 U/L 6-55 vegy=101) EGFR (BEAKER) (test 39 mL/min/1.73 sq m ESTIMATED GFR IS NOT nnsv=7911) ACCURATE CREATININE CLEARANCE IN PREDICTING GLOMERULAR FILTRATION RATE. ESTIMATED GFR IS NOT APPLICABLE FOR DIALYSIS PATIENTS. Specimen slightly ictericB-TYPE NATRIURETIC FACTOR (BNP)2019-05-28 06:19:00 Test Item Value Reference Range Comments B-TYPE NATRIURETIC PEPTIDE (BEAKER) (test 381 pg/mL 0-100 mweo=503) CALCIUM, [id number] 05:25:00 Test Item Value Reference Range Comments CALCIUM IONIZED (BEAKER) (test bjhg=054) 1.03 mmol/L 1.12-1.27 PH, BLOOD (BEAKER) (test zaaa=9552) 7.49 POCT-GLUCOSE [id number] 22:42:00 Test Item Value Reference Range Comments POC-GLUCOSE METER (BEAKER) 174 mg/dL 70-110 TESTED AT [address] (test qvgm=9093) [facility] [address] [id number] 17:57:00 Test Item Value Reference Range Comments SODIUM (BEAKER) (test xahp=332) 140 meq/L 136-145 POTASSIUM (BEAKER) (test 3.9 meq/L 3.5-5.1 Specimen slightly hemolyzed tmbs=918) CHLORIDE (BEAKER) (test 99 meq/L 98-107 xcea=690) CO2 (BEAKER) (test hyia=871) 35 meq/L 22-29 Call [id number] 17:50:00 Test Item Value Reference Range Comments POC-GLUCOSE METER (BEAKER) 151 mg/dL 70-110 TESTED AT [address] (test xuct=5649) [place] [id number] POCT-GLUCOSE [id number] 12:36:00 Test Item Value Reference Range Comments POC-GLUCOSE METER (BEAKER) 123 mg/dL 70-110 TESTED AT [address] (test mcrr=3745) [place] [id number] POCT-GLUCOSE [id number] 08:15:00 Test Item Value Reference Range Comments POC-GLUCOSE METER (BEAKER) 121 mg/dL 70-110 TESTED AT [address] (test aydc=5731) [place] [id number] 07:00:00 Test Item Value Reference Range Comments PHOSPHORUS (BEAKER) (test rkvv=219) 1.9 mg/dL 2.3-4.7 [id number] 07:00:00 Test Item Value Reference Range Comments MAGNESIUM (BEAKER) (test hxjm=519) 1.6 mg/dL 1.6-2.6 COMPREHENSIVE METABOLIC [id number] 07:00:00 Test Item Value Reference Range Comments TOTAL PROTEIN (BEAKER) 4.9 gm/dL 6.0-8.3 (test lqzr=557) ALBUMIN (BEAKER) (test 3.1 g/dL 3.5-5.0 yqzw=9327) ALKALINE PHOSPHATASE 75 U/L 40-150 (BEAKER) (test twmq=921) BILIRUBIN TOTAL (BEAKER) 1.9 mg/dL 0.2-1.2 (test bhrc=347) SODIUM (BEAKER) (test 139 meq/L 136-145 higl=583) POTASSIUM (BEAKER) (test 4.3 meq/L 3.5-5.1 tves=218) CHLORIDE (BEAKER) (test 99 meq/L 98-107 zghg=513) CO2 (BEAKER) (test 37 meq/L 22-29 saaj=385) BLOOD UREA NITROGEN 16 mg/dL 7-21 (BEAKER) (test fkje=369) CREATININE (BEAKER) (test 1.29 mg/dL 0.57-1.25 mhcq=745) GLUCOSE RANDOM (BEAKER) 139 mg/dL 70-105 (test adgp=196) CALCIUM (BEAKER) (test 8.5 mg/dL 8.4-10.2 ziwy=602) AST (SGOT) (BEAKER) (test 23 U/L 5-34 gjbg=488) ALT (SGPT) (BEAKER) (test 8 U/L 6-55 djqj=562) EGFR (BEAKER) (test 42 mL/min/1.73 sq m ESTIMATED GFR IS NOT mceq=4211) ACCURATE CREATININE CLEARANCE IN PREDICTING GLOMERULAR FILTRATION RATE. ESTIMATED GFR IS NOT APPLICABLE FOR DIALYSIS PATIENTS. Specimen slightly ictericCBC W/PLT COUNT & AUTO [id number] 06:20 :00 Test Item Value Reference Range Comments WHITE BLOOD CELL COUNT (BEAKER) (test qkyg=971) 4.7 K/ L 3.5-10.5 RED BLOOD CELL COUNT (BEAKER) (test ddes=081) 2.71 M/ L 3.93-5.22 HEMOGLOBIN (BEAKER) (test gxey=233) 7.5 GM/DL 11.2-15.7 HEMATOCRIT (BEAKER) (test snkk=959) 23.9 % 34.1-44.9 MEAN CORPUSCULAR VOLUME (BEAKER) (test lkdh=046) 88.2 fL 79.4-94.8 MEAN CORPUSCULAR HEMOGLOBIN (BEAKER) (test 27.7 pg 25.6-32.2 cikt=987) MEAN CORPUSCULAR HEMOGLOBIN CONC (BEAKER) (test 31.4 GM/DL 32.2-35.5 fnff=026) RED CELL DISTRIBUTION WIDTH (BEAKER) (test 17.6 % 11.7-14.4 dqey=481) PLATELET COUNT (BEAKER) (test kpxr=722) 137 K/CU MM 150-450 MEAN PLATELET VOLUME (BEAKER) (test vvjl=360) 9.6 fL 9.4-12.3 NUCLEATED RED BLOOD CELLS (BEAKER) (test 0 /100 WBC 0-0 awes=583) NEUTROPHILS RELATIVE PERCENT (BEAKER) (test 45 % piae=655) LYMPHOCYTES RELATIVE PERCENT (BEAKER) (test 33 % epsg=243) MONOCYTES RELATIVE PERCENT (BEAKER) (test 12 % qsdt=212) EOSINOPHILS RELATIVE PERCENT (BEAKER) (test 9 % xeob=780) BASOPHILS RELATIVE PERCENT (BEAKER) (test 1 % dvvf=076) NEUTROPHILS ABSOLUTE COUNT (BEAKER) (test 2.13 K/ L 1.56-6.13 kavd=349) LYMPHOCYTES ABSOLUTE COUNT (BEAKER) (test 1.56 K/ L 1.18-3.74 faas=033) MONOCYTES ABSOLUTE COUNT (BEAKER) (test 0.57 K/ L 0.24-0.36 gjgj=311) EOSINOPHILS ABSOLUTE COUNT (BEAKER) (test 0.41 K/ L 0.04-0.36 oslw=475) BASOPHILS ABSOLUTE COUNT (BEAKER) (test 0.05 K/ L 0.01-0.08 lhpp=099) IMMATURE GRANULOCYTES-RELATIVE PERCENT (BEAKER) 0 % 0-1 (test csut=3763) CALCIUM, [id number] 05:29:00 Test Item Value Reference Range Comments CALCIUM IONIZED (BEAKER) (test cmge=131) 1.02 mmol/L 1.12-1.27 PH, BLOOD (BEAKER) (test tfta=5620) 7.53 POCT-GLUCOSE [id number] 22:13:00 Test Item Value Reference Range Comments POC-GLUCOSE METER (BEAKER) 315 mg/dL 70-110 Notified ALEXI ENNIS/TESTED AT [facility] (test fvsz=7916) [address] [facility] [address] POCT-GLUCOSE [id number] 18:43:00 Test Item Value Reference Range Comments POC-GLUCOSE METER (BEAKER) 204 mg/dL 70-110 TESTED AT [address] (test orai=7228) [facility] [address] U/S, [id number] 17:14:00Reason for exam:->ascitesFINAL REPORT Ultrasound guided paracentesis. Clinical History: Ascites. Sedation: None. Operators: This procedure was performed by SARIKA Lee under direct supervision of Akil Chung M.D. Financial Recording Clerk: None. Estimated Blood Loss: < 1 cc. [...] was achieved with 2% lidocaine, a 5 [place] one-step catheter was advanced into the peritoneal cavity under ultrasound guidance. After completion of drainage, the catheter was removed. There was no evidence of complication. Impression:Successful ultrasound guided paracentesis. Signed: Akil Chung MDReport Verified Date/Time: 05/26/2019 17:14:25 Reading Location : [address] Ultrasound Reading Room U/S, [id number] 17:12:00Reason for exam:->ascitesFINAL REPORT Ultrasound guided paracentesis Clinical History: Ascites. Sedation: None. Supply Assistant: Micheline Pena PA-C Supervising Physician: Shravan Ruiz MD Financial Recording Clerk: None. Estimated Blood Loss: < 1 mL. [...] anesthesia was achieved with lidocaine, a 5 [place] one-step catheter was advanced into theperitoneal cavity under ultrasound guidance. After completion of drainage, the catheter was removed.There was no evidence of complication. Impression:Successful ultrasound guided paracentesis. Signed:Shravan Ruiz Verified Date/Time: 05/26/2019 17:12:51 Reading Location: [address] Ultrasound Reading Room POCT-GLUCOSE [id number] 17:02: 00 Test Item Value Reference Range Comments POC-GLUCOSE METER (BEAKER) 204 mg/dL 70-110 TESTED AT [address] (test csiq=2910) [place] [address] POCT-GLUCOSE [id number] 13:52:00 Test Item Value Reference Range Comments POC-GLUCOSE METER (BEAKER) 185 mg/dL 70-110 TESTED AT [address] (test buno=7666) [place] [address] BODY FLUID CELL COUNT WITH [id number] 13:12:00 Test Item Value Reference Range Comments APPEARANCE FLUID (BEAKER) (test xivr=040) Slightly Hazy Clear COLOR FLUID (BEAKER) (test wfrg=643) Yellow Colorless, Straw RBC FLUID (BEAKER) (test zyqp=660) 3000 /cu mm <=1 ADJUSTED WBC FLUID (BEAKER) (test evbg=9966) 107 /cu mm <=5 LINING CELLS (BEAKER) (test wnon=5511) 13 /cu mm <=1 NEUTROPHILS FLUID (BEAKER) (test lncz=1738) 0 % LYMPHS FLUID (BEAKER) (test dqxx=014) 21 % MONO/MACROPHAGE FLUID (BEAKER) (test 78 % xhno=802) EOSINOPHILS FLUID (BEAKER) (test ulju=977) 1 % BASO FLUID (BEAKER) (test cpxm=459) 0 % CONTAINER BODY FLUID (BEAKER) (test EDTA Tube yxpu=9606) POCT-GLUCOSE [id number] 08:40:00 Test Item Value Reference Range Comments POC-GLUCOSE METER (BEAKER) 113 mg/dL 70-110 TESTED AT [address] (test zjhu=5897) [place] [address] [id number] 07:18:00 Test Item Value Reference Range Comments T3 TOTAL (BEAKER) (test 34 ng/dL 48-159 Performed at [employer]. Refer. khrz=626) Range:76-181 [id number] 05:45:00 Test Item Value Reference Range Comments PHOSPHORUS (BEAKER) (test tqer=319) 1.7 mg/dL 2.3-4.7 [id number] 05:45:00 Test Item Value Reference Range Comments MAGNESIUM (BEAKER) (test dpxa=090) 1.8 mg/dL 1.6-2.6 COMPREHENSIVE METABOLIC [id number] 05:45:00 Test Item Value Reference Range Comments TOTAL PROTEIN (BEAKER) 5.1 gm/dL 6.0-8.3 (test bvzz=409) ALBUMIN (BEAKER) (test 3.1 g/dL 3.5-5.0 hncu=9273) ALKALINE PHOSPHATASE 88 U/L 40-150 (BEAKER) (test mgon=586) BILIRUBIN TOTAL (BEAKER) 1.6 mg/dL 0.2-1.2 (test nukf=414) SODIUM (BEAKER) (test 140 meq/L 136-145 zgpq=913) POTASSIUM (BEAKER) (test 3.8 meq/L 3.5-5.1 vnnq=692) CHLORIDE (BEAKER) (test 100 meq/L 98-107 tego=980) CO2 (BEAKER) (test 36 meq/L 22-29 sizd=448) BLOOD UREA NITROGEN 16 mg/dL 7-21 (BEAKER) (test jgnp=066) CREATININE (BEAKER) (test 1.37 mg/dL 0.57-1.25 xymr=095) GLUCOSE RANDOM (BEAKER) 159 mg/dL 70-105 (test ozvj=490) CALCIUM (BEAKER) (test 8.4 mg/dL 8.4-10.2 lizg=835) AST (SGOT) (BEAKER) (test 26 U/L 5-34 yuml=526) ALT (SGPT) (BEAKER) (test 10 U/L 6-55 fdrw=859) EGFR (BEAKER) (test 39 mL/min/1.73 sq m ESTIMATED GFR IS NOT cddg=2963) ACCURATE CREATININE CLEARANCE IN PREDICTING GLOMERULAR FILTRATION RATE. ESTIMATED GFR IS NOT APPLICABLE FOR DIALYSIS PATIENTS. CALCIUM, [id number] 05:11:00 Test Item Value Reference Range Comments CALCIUM IONIZED (BEAKER) (test khlw=466) 0.99 mmol/L 1.12-1.27 PH, BLOOD (BEAKER) (test qmrs=9575) 7.57 CBC W/PLT COUNT & AUTO [id number] 05:04:00 Test Item Value Reference Range Comments WHITE BLOOD CELL COUNT (BEAKER) (test mbfo=188) 4.6 K/ L 3.5-10.5 RED BLOOD CELL COUNT (BEAKER) (test xjcw=157) 2.81 M/ L 3.93-5.22 HEMOGLOBIN (BEAKER) (test rlnx=029) 7.8 GM/DL 11.2-15.7 HEMATOCRIT (BEAKER) (test fhea=061) 24.6 % 34.1-44.9 MEAN CORPUSCULAR VOLUME (BEAKER) (test utba=244) 87.5 fL 79.4-94.8 MEAN CORPUSCULAR HEMOGLOBIN (BEAKER) (test 27.8 pg 25.6-32.2 cviu=797) MEAN CORPUSCULAR HEMOGLOBIN CONC (BEAKER) (test 31.7 GM/DL 32.2-35.5 nijt=987) RED CELL DISTRIBUTION WIDTH (BEAKER) (test 17.2 % 11.7-14.4 osbm=249) PLATELET COUNT (BEAKER) (test ujgt=335) 129 K/CU MM 150-450 MEAN PLATELET VOLUME (BEAKER) (test lbsr=672) 9.0 fL 9.4-12.3 NUCLEATED RED BLOOD CELLS (BEAKER) (test 0 /100 WBC 0-0 htrv=414) NEUTROPHILS RELATIVE PERCENT (BEAKER) (test 47 % uowi=350) LYMPHOCYTES RELATIVE PERCENT (BEAKER) (test 29 % oxok=901) MONOCYTES RELATIVE PERCENT (BEAKER) (test 13 % rmet=833) EOSINOPHILS RELATIVE PERCENT (BEAKER) (test 11 % hkyg=221) BASOPHILS RELATIVE PERCENT (BEAKER) (test 1 % jidt=152) NEUTROPHILS ABSOLUTE COUNT (BEAKER) (test 2.17 K/ L 1.56-6.13 bxug=607) LYMPHOCYTES ABSOLUTE COUNT (BEAKER) (test 1.32 K/ L 1.18-3.74 ytaj=458) MONOCYTES ABSOLUTE COUNT (BEAKER) (test 0.58 K/ L 0.24-0.36 rnbl=088) EOSINOPHILS ABSOLUTE COUNT (BEAKER) (test 0.49 K/ L 0.04-0.36 nybo=872) BASOPHILS ABSOLUTE COUNT (BEAKER) (test 0.06 K/ L 0.01-0.08 meem=030) IMMATURE GRANULOCYTES-RELATIVE PERCENT (BEAKER) 0 % 0-1 (test nefl=0250) POCT-GLUCOSE [id number] 23:10:00 Test Item Value Reference Range Comments POC-GLUCOSE METER (BEAKER) 239 mg/dL 70-110 TESTED AT [address] (test utvy=4574) [place] [address] [id number] 19:02:00 Test Item Value Reference Range Comments SODIUM (BEAKER) (test tekk=434) 138 meq/L 136-145 POTASSIUM (BEAKER) (test tskj=967) 3.7 meq/L 3.5-5.1 CHLORIDE (BEAKER) (test ljtc=761) 100 meq/L 98-107 CO2 (BEAKER) (test ytas=080) 31 meq/L 22-29 Call [id number] with resultsPOCT-GLUCOSE [id number] 16:50:00 Test Item Value Reference Range Comments POC-GLUCOSE METER (BEAKER) 203 mg/dL 70-110 TESTED AT [address] (test drao=5233) [place] [address] POCT-GLUCOSE [id number] 12:49:00 Test Item Value Reference Range Comments POC-GLUCOSE METER (BEAKER) 219 mg/dL 70-110 TESTED AT [address] (test bony=4095) [place] [address] ANTI-NUCLEAR ANTIBODY (QUE)[id number] 10:03:00 Test Item Value Reference Range Comments ANTI-NUCLEAR ANTIBODY (QUE) (BEAKER) (test Negative Negative rdlb=358) Test performed by IFA method.Test performed by IFA method.POCT-GLUCOSE [id number] 08:54:00 Test Item Value Reference Range Comments POC-GLUCOSE METER (BEAKER) 125 mg/dL 70-110 TESTED AT [address] (test skve=4851) [place] [address] BASIC METABOLIC [id number] 07:41:00 Test Item Value Reference Range Comments SODIUM (BEAKER) (test 141 meq/L 136-145 ggpr=742) POTASSIUM (BEAKER) (test 3.0 meq/L 3.5-5.1 rgsw=472) CHLORIDE (BEAKER) (test 101 meq/L 98-107 odbf=837) CO2 (BEAKER) (test 35 meq/L 22-29 izxh=785) BLOOD UREA NITROGEN 16 mg/dL 7-21 (BEAKER) (test puxl=849) CREATININE (BEAKER) (test 1.31 mg/dL 0.57-1.25 ohmc=913) GLUCOSE RANDOM (BEAKER) 136 mg/dL 70-105 (test wcco=202) CALCIUM (BEAKER) (test 7.9 mg/dL 8.4-10.2 mqez=154) EGFR (BEAKER) (test 41 mL/min/1.73 sq m ESTIMATED GFR IS NOT lnsj=7691) ACCURATE CREATININE CLEARANCE IN PREDICTING GLOMERULAR FILTRATION RATE. ESTIMATED GFR IS NOT APPLICABLE FOR DIALYSIS PATIENTS. [id number] 07:32:00 Test Item Value Reference Range Comments PHOSPHORUS (BEAKER) (test rvet=628) 2.0 mg/dL 2.3-4.7 [id number] 07:32:00 Test Item Value Reference Range Comments MAGNESIUM (BEAKER) (test hvnk=078) 1.6 mg/dL 1.6-2.6 HEPATIC FUNCTION [id number] 07:32:00 Test Item Value Reference Range Comments TOTAL PROTEIN (BEAKER) (test gkrk=279) 4.9 gm/dL 6.0-8.3 ALBUMIN (BEAKER) (test oxco=4762) 3.0 g/dL 3.5-5.0 BILIRUBIN TOTAL (BEAKER) (test jwmg=115) 1.4 mg/dL 0.2-1.2 BILIRUBIN DIRECT (BEAKER) (test xids=212) 0.7 mg/dL 0.1-0.5 ALKALINE PHOSPHATASE (BEAKER) (test cfpz=655) 86 U/L 40-150 AST (SGOT) (BEAKER) (test shnf=350) 25 U/L 5-34 ALT (SGPT) (BEAKER) (test jajg=813) 10 U/L 6-55 CBC W/PLT COUNT & AUTO [id number] 06:11:00 Test Item Value Reference Range Comments WHITE BLOOD CELL COUNT (BEAKER) (test kqla=200) 4.2 K/ L 3.5-10.5 RED BLOOD CELL COUNT (BEAKER) (test dglm=641) 2.68 M/ L 3.93-5.22 HEMOGLOBIN (BEAKER) (test viby=543) 7.4 GM/DL 11.2-15.7 HEMATOCRIT (BEAKER) (test jusd=431) 23.5 % 34.1-44.9 MEAN CORPUSCULAR VOLUME (BEAKER) (test ahss=285) 87.7 fL 79.4-94.8 MEAN CORPUSCULAR HEMOGLOBIN (BEAKER) (test 27.6 pg 25.6-32.2 hdrh=587) MEAN CORPUSCULAR HEMOGLOBIN CONC (BEAKER) (test 31.5 GM/DL 32.2-35.5 vopd=825) RED CELL DISTRIBUTION WIDTH (BEAKER) (test 18.2 % 11.7-14.4 lzdp=236) PLATELET COUNT (BEAKER) (test mhxp=429) 140 K/CU MM 150-450 MEAN PLATELET VOLUME (BEAKER) (test mjjh=659) 10.3 fL 9.4-12.3 NUCLEATED RED BLOOD CELLS (BEAKER) (test 0 /100 WBC 0-0 gxog=100) NEUTROPHILS RELATIVE PERCENT (BEAKER) (test 44 % qeni=355) LYMPHOCYTES RELATIVE PERCENT (BEAKER) (test 33 % vgop=067) MONOCYTES RELATIVE PERCENT (BEAKER) (test 12 % fjiy=200) EOSINOPHILS RELATIVE PERCENT (BEAKER) (test 10 % eaai=769) BASOPHILS RELATIVE PERCENT (BEAKER) (test 2 % godf=566) NEUTROPHILS ABSOLUTE COUNT (BEAKER) (test 1.82 K/ L 1.56-6.13 sily=664) LYMPHOCYTES ABSOLUTE COUNT (BEAKER) (test 1.36 K/ L 1.18-3.74 kdbh=203) MONOCYTES ABSOLUTE COUNT (BEAKER) (test 0.48 K/ L 0.24-0.36 rbjx=525) EOSINOPHILS ABSOLUTE COUNT (BEAKER) (test 0.42 K/ L 0.04-0.36 liim=829) BASOPHILS ABSOLUTE COUNT (BEAKER) (test 0.07 K/ L 0.01-0.08 nktt=397) IMMATURE GRANULOCYTES-RELATIVE PERCENT (BEAKER) 0 % 0-1 (test vxbe=7575) PROTHROMBIN [id number] 05:31:00 Test Item Value Reference Range Comments PROTIME (BEAKER) (test yqie=675) 14.8 seconds 11.9-14.2 INR (BEAKER) (test wdpv=963) 1.2 <=5.9 Effective 04/01/2019: PT Reference Range ChangeNew: 11.9-14.2 Previous: 11.7- 14.7RECOMMENDED COUMADIN/WARFARIN INR THERAPY RANGESSTANDARD DOSE: 2.0-3.0 Includes: PROPHYLAXIS for venous thrombosis, systemic embolization; TREATMENT for venous thrombosis and/or pulmonary embolus.HIGH RISK: Target INR is2.5-3.5 for patients wiht mechanical heart valves.BLOOD [id number] 02:01:00 Test Item Value Reference Range Comments CULTURE (BEAKER) (test ndwz=8473) No growth in 5 days BLOOD [id number] 02:01:00 Test Item Value Reference Range Comments CULTURE (BEAKER) (test hdca=8742) No growth in 5 days POCT-GLUCOSE [id number] 23:07:00 Test Item Value Reference Range Comments POC-GLUCOSE METER (BEAKER) 217 mg/dL 70-110 TESTED AT [address] (test kwzo=9303) [place] [id number] POCT-GLUCOSE [id number] 17:54:00 Test Item Value Reference Range Comments POC-GLUCOSE METER (BEAKER) 138 mg/dL 70-110 TESTED AT [address] (test knfm=1252) [place] [id number] POCT-GLUCOSE [id number] 12:22:00 Test Item Value Reference Range Comments POC-GLUCOSE METER (BEAKER) 114 mg/dL 70-110 TESTED AT [address] (test ziff=5055) [place] [id number] POCT-GLUCOSE [id number] 07:39:00 Test Item Value Reference Range Comments POC-GLUCOSE METER (BEAKER) 124 mg/dL 70-110 TESTED AT [address] (test eqvo=6461) [place] [id number] HEPATIC FUNCTION [id number] 05:49:00 Test Item Value Reference Range Comments TOTAL PROTEIN (BEAKER) (test nkkz=716) 5.1 gm/dL 6.0-8.3 ALBUMIN (BEAKER) (test rndh=8867) 2.9 g/dL 3.5-5.0 BILIRUBIN TOTAL (BEAKER) (test esyr=091) 1.3 mg/dL 0.2-1.2 BILIRUBIN DIRECT (BEAKER) (test pkdr=248) 0.7 mg/dL 0.1-0.5 ALKALINE PHOSPHATASE (BEAKER) (test wcim=036) 91 U/L 40-150 AST (SGOT) (BEAKER) (test eqpn=706) 30 U/L 5-34 ALT (SGPT) (BEAKER) (test auih=503) 10 U/L 6-55 BASIC METABOLIC [id number] 05:49:00 Test Item Value Reference Range Comments SODIUM (BEAKER) (test 140 meq/L 136-145 ipac=372) POTASSIUM (BEAKER) (test 3.2 meq/L 3.5-5.1 zzof=905) CHLORIDE (BEAKER) (test 103 meq/L 98-107 tnei=019) CO2 (BEAKER) (test 27 meq/L 22-29 douz=774) BLOOD UREA NITROGEN 17 mg/dL 7-21 (BEAKER) (test ujjs=348) CREATININE (BEAKER) (test 1.30 mg/dL 0.57-1.25 iyav=440) GLUCOSE RANDOM (BEAKER) 143 mg/dL 70-105 (test bype=389) CALCIUM (BEAKER) (test 7.9 mg/dL 8.4-10.2 tvzm=914) EGFR (BEAKER) (test 42 mL/min/1.73 sq m ESTIMATED GFR IS NOT rceq=7728) ACCURATE CREATININE CLEARANCE IN PREDICTING GLOMERULAR FILTRATION RATE. ESTIMATED GFR IS NOT APPLICABLE FOR DIALYSIS PATIENTS. PROTHROMBIN TIME/[id number] 05:32:00 Test Item Value Reference Range Comments PROTIME (BEAKER) (test ykeo=104) 14.7 seconds 11.9-14.2 INR (BEAKER) (test tncu=575) 1.2 <=5.9 Effective 04/01/2019: PT Reference Range ChangeNew: 11.9-14.2 Previous: 11.7- 14.7RECOMMENDED COUMADIN/WARFARIN INR THERAPY RANGESSTANDARD DOSE: 2.0-3.0 Includes: PROPHYLAXIS for venous thrombosis, systemic embolization; TREATMENT for venous thrombosis and/or pulmonary embolus.HIGH RISK: Target INR is2.5-3.5 for patients wiht mechanical heart valves.CBC W/PLT COUNT & AUTO [id number] 05:09:00 Test Item Value Reference Range Comments WHITE BLOOD CELL COUNT (BEAKER) (test occl=926) 4.7 K/ L 3.5-10.5 RED BLOOD CELL COUNT (BEAKER) (test laxj=923) 2.86 M/ L 3.93-5.22 HEMOGLOBIN (BEAKER) (test qait=102) 7.9 GM/DL 11.2-15.7 HEMATOCRIT (BEAKER) (test xcrl=356) 25.3 % 34.1-44.9 MEAN CORPUSCULAR VOLUME (BEAKER) (test xpge=212) 88.5 fL 79.4-94.8 MEAN CORPUSCULAR HEMOGLOBIN (BEAKER) (test 27.6 pg 25.6-32.2 aztz=067) MEAN CORPUSCULAR HEMOGLOBIN CONC (BEAKER) (test 31.2 GM/DL 32.2-35.5 xalf=378) RED CELL DISTRIBUTION WIDTH (BEAKER) (test 17.4 % 11.7-14.4 acjj=308) PLATELET COUNT (BEAKER) (test zomv=162) 141 K/CU MM 150-450 MEAN PLATELET VOLUME (BEAKER) (test olbu=214) 9.3 fL 9.4-12.3 NUCLEATED RED BLOOD CELLS (BEAKER) (test 0 /100 WBC 0-0 lblx=846) NEUTROPHILS RELATIVE PERCENT (BEAKER) (test 50 % urea=540) LYMPHOCYTES RELATIVE PERCENT (BEAKER) (test 28 % must=753) MONOCYTES RELATIVE PERCENT (BEAKER) (test 11 % uolh=103) EOSINOPHILS RELATIVE PERCENT (BEAKER) (test 10 % nqcy=932) BASOPHILS RELATIVE PERCENT (BEAKER) (test 1 % wlum=932) NEUTROPHILS ABSOLUTE COUNT (BEAKER) (test 2.33 K/ L 1.56-6.13 noen=879) LYMPHOCYTES ABSOLUTE COUNT (BEAKER) (test 1.31 K/ L 1.18-3.74 xcwn=998) MONOCYTES ABSOLUTE COUNT (BEAKER) (test 0.51 K/ L 0.24-0.36 tsgo=469) EOSINOPHILS ABSOLUTE COUNT (BEAKER) (test 0.46 K/ L 0.04-0.36 apaq=173) BASOPHILS ABSOLUTE COUNT (BEAKER) (test 0.06 K/ L 0.01-0.08 zena=997) IMMATURE GRANULOCYTES-RELATIVE PERCENT (BEAKER) 0 % 0-1 (test yemc=5925) BLOOD GAS, [id number] 22:21:00 Test Item Value Reference Range Comments PH ARTERIAL (BEAKER) (test otvd=473) 7.49 7.35-7.45 PCO2 ARTERIAL (BEAKER) (test xuhe=160) 43 mmHg 35-45 PO2 ARTERIAL (BEAKER) (test ocmi=273) 56 mmHg 80-90 O2 SATURATION ARTERIAL (BEAKER) (test mblx=135) 92.5 % 96.0-97.0 HCO3 ARTERIAL (BEAKER) (test dkno=033) 32 mmol/L 21-29 BASE EXCESS ARTERIAL (BEAKER) (test upaz=080) 7.9 mmol/L -2.0-3.0 PATIENT TEMPERATURE (BEAKER) (test xkqi=9017) 35.8 C FIO2 (BEAKER) (test hdob=5809) 21.0 % POCT-GLUCOSE [id number] 21:14:00 Test Item Value Reference Range Comments POC-GLUCOSE METER (BEAKER) 259 mg/dL 70-110 TESTED AT [address] (test utzb=9797) [place] [address] BODY FLUID CULTURE + GRAM [id number] 18:00:00 Test Item Value Reference Range Comments CULTURE (BEAKER) (test uchl=8857) No growth GRAM STAIN RESULT (BEAKER) (test No WBCs czbu=6922) GRAM STAIN RESULT (BEAKER) (test No organisms seen eibt=97534) POCT-GLUCOSE [id number] 17:23:00 Test Item Value Reference Range Comments POC-GLUCOSE METER (BEAKER) 201 mg/dL 70-110 TESTED AT [address] (test hegm=8137) [place] [address] RAD, MANDIBLE, MIN 4 [id number] 15:00:00Reason for exam:->liver transplant evalShould this be [...] Martinez MDReport Verified Date/Time: 05/23/201915:00:10 Reading Location: [address] Transitional Reading Room CRYPTOCOCCAL [id number] 14:59:00 Test Item Value Reference Range Comments CRYPTOCOCCAL ANTIGEN, SERUM (BEAKER) (test Negative Negative, Interference zklv=4661) [id number] 14:45:00 Test Item Value Reference Range Comments RPR SCREEN (BEAKER) (test ftcr=787) Nonreactive Nonreactive CYTOMEGALOVIRUS ANTIBODY, [id number] 13:48:00 Test Item Value Reference Range Comments CYTOMEGALOVIRUS, IGG (BEAKER) (test zgfr=3641) Positive Negative, Equivocal CMV IgG Result Interpretation: </=0.8 Al Negative 0.9-1.0 Al Equivocal &gt ;/=1.1 Al PositiveCYTOMEGALOVIRUS ANTIBODY, [id number] 13:48:00 Test Item Value Reference Range Comments CYTOMEGALOVIRUS IGM ANTIBODY (BEAKER) (test Negative Negative, Equivocal ttdy=7150) CMV IgM Result Interpretation: </=0.8 Al Negative 0.9-1.0 Al Equivocal >/=1.1 Al PositiveEBV ANTIBODY, [id number] 13:48:00 Test Item Value Reference Range Comments BERTRAND BOLES VIRAL CAPSID ANTIGEN IGG (BEAKER) Positive Negative, Equivocal (test bvkm=6184) Bertrand Boles Viral Capsid Antigen IgG Result Interpretation: </=0.8 Al Negative 0.9-1.0 Al Equivocal >/=1.1 Al PositiveEBV ANTIBODY, [id number] 13:48:00 Test Item Value Reference Range Comments BERTRAND BOLES VIRAL CAPSID ANTIGEN IGM (BEAKER) Negative Negative, Equivocal (test uhwb=0785) Bertrand Boles Viral Capsid Antigen IgM Result Interpretation: </=0.8 Al Negative 0.9-1.0 Al Equivocal >/=1.1 Al PositiveVARICELLA ZOSTER ANTIBODY , [id number] 13:48:00 Test Item Value Reference Range Comments VARICELLA ZOSTER IGG (AL) (BEAKER) (test wksv=0137) 0.9 VARICELLA ZOSTER RESULT INTERPRETATIONS: <=0.8 Al Nonreactive: Presumed non-immune to VZV 0.9-1.0 Al Equivocal >=1.1 Al Reactive: Presumed immune to VZVRUBELLA ANTIBODY, [id number] 13:48:00 Test Item Value Reference Range Comments RUBELLA IGG QUANTITATION (AKER) (test utrd=706) 12.0 IU/mL <8.0 Rubella IgG Result Interpretation: </=7.0 IU/mL Negative - Presumed non- immune 8.0 - 9.9 IU/mL Equivocal >=10.0 IU/mL Positive - Presumed immunePOCT-GLUCOSE [id number] 11:41:00 Test Item Value Reference Range Comments POC-GLUCOSE METER (BEAKER) 162 mg/dL 70-110 TESTED AT [address] (test zzig=7582) [facility] [address] POCT-GLUCOSE [id number] 10:06:00 Test Item Value Reference Range Comments POC-GLUCOSE METER (BEAKER) 95 mg/dL 70-110 TESTED AT [address] (test ixek=6135) [place] [id number] IRON, TIBC, % SAT. (WITHOUT FERRITIN)2019-05-23 07:32:00 Test Item Value Reference Range Comments IRON (BEAKER) (test jkzw=273) 30.0 ug/dL 40.0-160.0 TOTAL IRON BINDING CAPACITY (BEAKER) (test 143 ug/dL 250-450 hvea=938) IRON % SATURATION (2) (BEAKER) (test fewz=4095) 21 % 20-55 [id number] 06:29:00 Test Item Value Reference Range Comments PHOSPHORUS (BEAKER) (test merg=557) 1.9 mg/dL 2.3-4.7 [id number] 06:29:00 Test Item Value Reference Range Comments MAGNESIUM (BEAKER) (test abvi=768) 1.5 mg/dL 1.6-2.6 HEPATIC FUNCTION [id number] 06:29:00 Test Item Value Reference Range Comments TOTAL PROTEIN (BEAKER) (test hcnk=019) 5.2 gm/dL 6.0-8.3 ALBUMIN (BEAKER) (test ejvq=6356) 3.0 g/dL 3.5-5.0 BILIRUBIN TOTAL (BEAKER) (test kkxo=548) 1.6 mg/dL 0.2-1.2 BILIRUBIN DIRECT (BEAKER) (test wqeu=272) 0.8 mg/dL 0.1-0.5 ALKALINE PHOSPHATASE (BEAKER) (test fcdn=254) 87 U/L 40-150 AST (SGOT) (BEAKER) (test sawg=090) 24 U/L 5-34 ALT (SGPT) (BEAKER) (test risw=810) 11 U/L 6-55 COMPREHENSIVE METABOLIC [id number] 06:29:00 Test Item Value Reference Range Comments TOTAL PROTEIN (BEAKER) 5.2 gm/dL 6.0-8.3 (test utla=025) ALBUMIN (BEAKER) (test 3.0 g/dL 3.5-5.0 skcl=0591) ALKALINE PHOSPHATASE 87 U/L 40-150 (BEAKER) (test zxec=268) BILIRUBIN TOTAL (BEAKER) 1.6 mg/dL 0.2-1.2 (test ugzb=946) SODIUM (BEAKER) (test 139 meq/L 136-145 rocf=838) POTASSIUM (BEAKER) (test 3.3 meq/L 3.5-5.1 ricd=525) CHLORIDE (BEAKER) (test 104 meq/L 98-107 ymmt=953) CO2 (BEAKER) (test 30 meq/L 22-29 dmnp=334) BLOOD UREA NITROGEN 18 mg/dL 7-21 (BEAKER) (test mnyw=776) CREATININE (BEAKER) (test 1.41 mg/dL 0.57-1.25 qxhz=619) GLUCOSE RANDOM (BEAKER) 102 mg/dL 70-105 (test azge=920) CALCIUM (BEAKER) (test 8.1 mg/dL 8.4-10.2 nsmp=320) AST (SGOT) (BEAKER) (test 24 U/L 5-34 uwht=607) ALT (SGPT) (BEAKER) (test 11 U/L 6-55 lolt=744) EGFR (BEAKER) (test 38 mL/min/1.73 sq m ESTIMATED GFR IS NOT yjug=4756) ACCURATE CREATININE CLEARANCE IN PREDICTING GLOMERULAR FILTRATION RATE. ESTIMATED GFR IS NOT APPLICABLE FOR DIALYSIS PATIENTS. CBC W/PLT COUNT & AUTO [id number] 05:46:00 Test Item Value Reference Range Comments WHITE BLOOD CELL COUNT (BEAKER) (test nuqz=194) 4.9 K/ L 3.5-10.5 RED BLOOD CELL COUNT (BEAKER) (test corh=596) 2.83 M/ L 3.93-5.22 HEMOGLOBIN (BEAKER) (test qqxq=680) 8.0 GM/DL 11.2-15.7 HEMATOCRIT (BEAKER) (test clva=359) 24.4 % 34.1-44.9 MEAN CORPUSCULAR VOLUME (BEAKER) (test gfhw=562) 86.2 fL 79.4-94.8 MEAN CORPUSCULAR HEMOGLOBIN (BEAKER) (test 28.3 pg 25.6-32.2 qsuq=787) MEAN CORPUSCULAR HEMOGLOBIN CONC (BEAKER) (test 32.8 GM/DL 32.2-35.5 wqaw=805) RED CELL DISTRIBUTION WIDTH (BEAKER) (test 17.6 % 11.7-14.4 lhon=124) PLATELET COUNT (BEAKER) (test jaev=596) 147 K/CU MM 150-450 MEAN PLATELET VOLUME (BEAKER) (test nwjj=589) 9.1 fL 9.4-12.3 NUCLEATED RED BLOOD CELLS (BEAKER) (test 0 /100 WBC 0-0 wjga=149) NEUTROPHILS RELATIVE PERCENT (BEAKER) (test 51 % lovb=332) LYMPHOCYTES RELATIVE PERCENT (BEAKER) (test 27 % ahec=136) MONOCYTES RELATIVE PERCENT (BEAKER) (test 11 % oiym=424) EOSINOPHILS RELATIVE PERCENT (BEAKER) (test 10 % edtm=198) BASOPHILS RELATIVE PERCENT (BEAKER) (test 1 % wcwn=489) NEUTROPHILS ABSOLUTE COUNT (BEAKER) (test 2.51 K/ L 1.56-6.13 gbvc=633) LYMPHOCYTES ABSOLUTE COUNT (BEAKER) (test 1.30 K/ L 1.18-3.74 qykc=892) MONOCYTES ABSOLUTE COUNT (BEAKER) (test 0.54 K/ L 0.24-0.36 cdjw=949) EOSINOPHILS ABSOLUTE COUNT (BEAKER) (test 0.48 K/ L 0.04-0.36 nzgd=609) BASOPHILS ABSOLUTE COUNT (BEAKER) (test 0.06 K/ L 0.01-0.08 sgcn=419) IMMATURE GRANULOCYTES-RELATIVE PERCENT (BEAKER) 0 % 0-1 (test infl=0021) PROTHROMBIN [id number] 05:46:00 Test Item Value Reference Range Comments PROTIME (BEAKER) (test zwew=888) 14.9 seconds 11.9-14.2 INR (BEAKER) (test ehng=040) 1.2 <=5.9 Effective 04/01/2019: PT Reference Range ChangeNew: 11.9-14.2 Previous: 11.7- 14.7RECOMMENDED COUMADIN/WARFARIN INR THERAPY RANGESSTANDARD DOSE: 2.0-3.0 Includes: PROPHYLAXIS for venous thrombosis, systemic embolization; TREATMENT for venous thrombosis and/or pulmonary embolus.HIGH RISK: Target INR is2.5-3.5 for patients wiht mechanical heart valves.CALCIUM, [id number] 05:44:00 Test Item Value Reference Range Comments CALCIUM IONIZED (BEAKER) (test aecg=014) 0.99 mmol/L 1.12-1.27 PH, BLOOD (BEAKER) (test xgkm=8312) 7.48 HEMOGLOBIN [id number] 22:07:00 Test Item Value Reference Range Comments HEMOGLOBIN A1C (BEAKER) (test vouo=311) 8.1 % 4.3-6.1 POCT-GLUCOSE [id number] 21:38:00 Test Item Value Reference Range Comments POC-GLUCOSE METER (BEAKER) 213 mg/dL 70-110 TESTED AT [address] (test owcn=3573) [facility] [address] POCT-GLUCOSE [id number] 18:07:00 Test Item Value Reference Range Comments POC-GLUCOSE METER (BEAKER) 212 mg/dL 70-110 TESTED AT [address] (test hbcf=0766) [facility] [address] ALPHA FETOPROTEIN (AFP), TUMOR [id number] 17:50:00 Test Item Value Reference Range Comments ALPHA-FETOPROTEIN (BEAKER) (test mbhh=0591) < ng/mL <10.0 HEPATITIS C [id number] 17:49:00 Test Item Value Reference Range Comments HEPATITIS C ANTIBODY (BEAKER) (test rshe=879) Nonreactive Nonreactive VITAMIN D, [id number] 15:10:00 Test Item Value Reference Range Comments VITAMIN D 25-OH (BEAKER) (test oykm=7262) < ng/mL 6.6-49.9 Effective 08/14/2017: Reference Range ChangeNew: 6.6-49.9 ng/mL Previous: 13.0 -47.8 ng/mLRecommended Vitamin D Target Range: 30.0-40.0 ng/mLHEPATITIS B SURFACE [id number] 15:10:00 Test Item Value Reference Range Comments HEPATITIS B SURFACE ANTIBODY (BEAKER) (test < mIU/mL <8.0 iqrb=706) CARCINOEMBRYONIC ANTIGEN (CEA)2019-05-22 15:10:00 Test Item Value Reference Range Comments CARCINOEMBRYONIC ANTIGEN (BEAKER) (test dwwp=191) < ng/mL 0.0-5.0 HEPATITIS B CORE ANTIBODY, [id number] 15:08:00 Test Item Value Reference Range Comments HEPATITIS B CORE IGM ANTIBODY (BEAKER) (test Nonreactive Nonreactive sbxt=943) HEPATITIS A ANTIBODY, [id number] 15:08:00 Test Item Value Reference Range Comments HEPATITIS A IGM ANTIBODY (BEAKER) (test Nonreactive Nonreactive gyin=647) HEPATITIS A ANTIBODY, [id number] 15:08:00 Test Item Value Reference Range Comments HEPATITIS A IGG ANTIBODY (BEAKER) (test Nonreactive Nonreactive cftu=5287) HEPATITIS B SURFACE [id number] 15:05:00 Test Item Value Reference Range Comments HEPATITIS B SURFACE ANTIGEN (2) (BEAKER) (test Nonreactive Nonreactive ehro=6806) HEPATITIS B CORE ANTIBODY, [id number] 15:05:00 Test Item Value Reference Range Comments HEPATITIS B CORE TOTAL ANTIBODY (BEAKER) (test Nonreactive Nonreactive qwym=301) HIV-1 ANTIGEN WITH HIV-1/2 [id number] 15:05:00 Test Item Value Reference Range Comments HIV-1 ANTIGEN WITH HIV 1\\T\\2 ANTIBODY (2) Nonreactive Nonreactive (BEAKER) (test ovwe=2618) URIC [id number] 14:46:00 Test Item Value Reference Range Comments URIC ACID (BEAKER) (test zbhk=319) 5.7 mg/dL 2.6-7.2 LIPID [id number] 14:46:00 Test Item Value Reference Range Comments TRIGLYCERIDES (BEAKER) (test caot=077) 71 mg/dL CHOLESTEROL (BEAKER) (test dtiv=062) 72 mg/dL HDL CHOLESTEROL (BEAKER) (test uhzd=192) 20 mg/dL LDL CHOLESTEROL CALCULATED (BEAKER) (test edqn=113) 38 mg/dL Triglyceride Reference Range: Low Risk <150 Borderline 150- 199 High Risk 200-499 Very High Risk >=500Cholesterol Reference Range: Low Risk <200 Borderline 200-239 High Risk > 240HDL Cholesterol Reference Range: Low Risk >=60 High Risk <40LDL Cholesterol Reference Range: Optimal <100 Near Optimal 100-129 Borderline 130-159 High 160-189 Very High >=190BILIRUBIN, [id number] 14:46:00 Test Item Value Reference Range Comments BILIRUBIN DIRECT (BEAKER) (test boxr=977) 0.8 mg/dL 0.1-0.5 GAMMA GLUTAMYL TRANSFERASE (GGT)2019-05-22 14:46:00 Test Item Value Reference Range Comments GAMMA GLUTAMYL TRANSFERASE (BEAKER) (test vhay=533) 10 U/L 9-64 [id number] 14:45:00 Test Item Value Reference Range Comments ETHANOL (BEAKER) (test kmzy=665) < mg/dL <=10 [id number] 14:44:00 Test Item Value Reference Range Comments TRANSFERRIN (BEAKER) (test xxwr=840) 109 mg/dL 174-382 IRON, TIBC, % SAT. (WITHOUT FERRITIN)2019-05-22 14:44:00 Test Item Value Reference Range Comments IRON (BEAKER) (test zlwr=709) 40.0 ug/dL 40.0-160.0 TOTAL IRON BINDING CAPACITY (BEAKER) (test 136 ug/dL 250-450 nhff=617) IRON % SATURATION (2) (BEAKER) (test lhvo=9440) 29 % 20-55 [id number] 14:34:00 Test Item Value Reference Range Comments PARTIAL THROMBOPLASTIN TIME (DAKOTAH) (test 35.7 seconds 22.5-36.0 xzui=563) [id number] 14:33:00 Test Item Value Reference Range Comments FIBRINOGEN LEVEL (DAKOTAH) (test kvko=894) 282 mg/dl 225-434 U/S, ABDOMINAL, WITH [id number] 14:09:00Reason for exam:->TIPS evaluationFINAL REPORT Ultrasound of [...] MDReport Verified Date/Time: 05/22/2019 14:09:52 Reading Location: [address] Radiology Reading Room Electronically signed by: MISSY MOMIN M.D. on 2018 02:09 PMPOCT-GLUCOSE [id number] 12:31:00 Test Item Value Reference Range Comments POC-GLUCOSE METER (BEAKER) 252 mg/dL 70-110 TESTED AT [facility] [address] [facility] (test gsbm=3326) [facility] [address] COMPREHENSIVE METABOLIC [id number] 08:22:00 Test Item Value Reference Range Comments TOTAL PROTEIN (BEAKER) 4.8 gm/dL 6.0-8.3 (test ppzu=121) ALBUMIN (BEAKER) (test 3.0 g/dL 3.5-5.0 erwb=1153) ALKALINE PHOSPHATASE 77 U/L 40-150 (BEAKER) (test yfli=330) BILIRUBIN TOTAL (BEAKER) 1.6 mg/dL 0.2-1.2 (test xlhx=959) SODIUM (BEAKER) (test 141 meq/L 136-145 uuef=129) POTASSIUM (BEAKER) (test 3.1 meq/L 3.5-5.1 ffbn=076) CHLORIDE (BEAKER) (test 105 meq/L 98-107 xwpd=056) CO2 (BEAKER) (test 31 meq/L 22-29 qbfp=376) BLOOD UREA NITROGEN 18 mg/dL 7-21 (BEAKER) (test ppfw=738) CREATININE (BEAKER) (test 1.50 mg/dL 0.57-1.25 bfsd=189) GLUCOSE RANDOM (BEAKER) 145 mg/dL 70-105 (test xrlz=639) CALCIUM (BEAKER) (test 7.9 mg/dL 8.4-10.2 lxck=757) AST (SGOT) (BEAKER) (test 23 U/L 5-34 dkwc=294) ALT (SGPT) (BEAKER) (test 7 U/L 6-55 ozbm=739) EGFR (BEAKER) (test 35 mL/min/1.73 sq m ESTIMATED GFR IS NOT xfyh=6305) ACCURATE CREATININE CLEARANCE IN PREDICTING GLOMERULAR FILTRATION RATE. ESTIMATED GFR IS NOT APPLICABLE FOR DIALYSIS PATIENTS. [id number] 08:19:00 Test Item Value Reference Range Comments PHOSPHORUS (BEAKER) (test eacq=592) 2.2 mg/dL 2.3-4.7 [id number] 08:19:00 Test Item Value Reference Range Comments MAGNESIUM (BEAKER) (test otnq=387) 1.5 mg/dL 1.6-2.6 HEPATIC FUNCTION [id number] 08:19:00 Test Item Value Reference Range Comments TOTAL PROTEIN (BEAKER) (test tyfd=186) 4.8 gm/dL 6.0-8.3 ALBUMIN (BEAKER) (test ikke=3563) 3.0 g/dL 3.5-5.0 BILIRUBIN TOTAL (BEAKER) (test yhdr=165) 1.6 mg/dL 0.2-1.2 BILIRUBIN DIRECT (BEAKER) (test rddm=905) 0.7 mg/dL 0.1-0.5 ALKALINE PHOSPHATASE (BEAKER) (test rwmc=978) 77 U/L 40-150 AST (SGOT) (BEAKER) (test rgvr=276) 23 U/L 5-34 ALT (SGPT) (BEAKER) (test isub=672) 7 U/L 6-55 POCT-GLUCOSE [id number] 08:08:00 Test Item Value Reference Range Comments POC-GLUCOSE METER (BEAKER) 154 mg/dL 70-110 TESTED AT [facility] [address] [place] [address] (test wqsn=2400) [facility] [address] B-TYPE NATRIURETIC FACTOR (BNP)2019-05-22 06:18:00 Test Item Value Reference Range Comments B-TYPE NATRIURETIC PEPTIDE (BEAKER) (test 411 pg/mL 0-100 rubi=302) PROTHROMBIN [id number] 06:00:00 Test Item Value Reference Range Comments PROTIME (BEAKER) (test ngrv=602) 14.9 seconds 11.9-14.2 INR (BEAKER) (test aqob=504) 1.2 <=5.9 Effective 04/01/2019: PT Reference Range ChangeNew: 11.9-14.2 Previous: 11.7- 14.7RECOMMENDED COUMADIN/WARFARIN INR THERAPY RANGESSTANDARD DOSE: 2.0-3.0 Includes: PROPHYLAXIS for venous thrombosis, systemic embolization; TREATMENT for venous thrombosis and/or pulmonary embolus.HIGH RISK: Target INR is2.5-3.5 for patients wiht mechanical heart valves.CALCIUM, [id number] 05:48:00 Test Item Value Reference Range Comments CALCIUM IONIZED (BEAKER) (test jsjm=900) 1.04 mmol/L 1.12-1.27 PH, BLOOD (BEAKER) (test kmbx=3558) 7.40 CBC W/PLT COUNT & AUTO [id number] 05:45:00 Test Item Value Reference Range Comments WHITE BLOOD CELL COUNT (BEAKER) (test lyop=762) 4.1 K/ L 3.5-10.5 RED BLOOD CELL COUNT (BEAKER) (test extd=148) 2.71 M/ L 3.93-5.22 HEMOGLOBIN (BEAKER) (test papg=833) 7.4 GM/DL 11.2-15.7 HEMATOCRIT (BEAKER) (test jzzv=520) 23.6 % 34.1-44.9 MEAN CORPUSCULAR VOLUME (BEAKER) (test uhem=637) 87.1 fL 79.4-94.8 MEAN CORPUSCULAR HEMOGLOBIN (BEAKER) (test 27.3 pg 25.6-32.2 ktsd=004) MEAN CORPUSCULAR HEMOGLOBIN CONC (BEAKER) (test 31.4 GM/DL 32.2-35.5 hksi=397) RED CELL DISTRIBUTION WIDTH (BEAKER) (test 17.2 % 11.7-14.4 pqsy=586) PLATELET COUNT (BEAKER) (test hyrk=303) 126 K/CU MM 150-450 MEAN PLATELET VOLUME (BEAKER) (test jcmd=764) 9.2 fL 9.4-12.3 NUCLEATED RED BLOOD CELLS (BEAKER) (test 0 /100 WBC 0-0 rhkl=926) NEUTROPHILS RELATIVE PERCENT (BEAKER) (test 49 % hgay=400) LYMPHOCYTES RELATIVE PERCENT (BEAKER) (test 29 % gatu=382) MONOCYTES RELATIVE PERCENT (BEAKER) (test 12 % tmlq=822) EOSINOPHILS RELATIVE PERCENT (BEAKER) (test 8 % nzxk=407) BASOPHILS RELATIVE PERCENT (BEAKER) (test 1 % vahq=311) NEUTROPHILS ABSOLUTE COUNT (BEAKER) (test 2.03 K/ L 1.56-6.13 rkjp=522) LYMPHOCYTES ABSOLUTE COUNT (BEAKER) (test 1.21 K/ L 1.18-3.74 hlwc=173) MONOCYTES ABSOLUTE COUNT (BEAKER) (test 0.51 K/ L 0.24-0.36 agfi=600) EOSINOPHILS ABSOLUTE COUNT (BEAKER) (test 0.34 K/ L 0.04-0.36 nlus=296) BASOPHILS ABSOLUTE COUNT (BEAKER) (test 0.04 K/ L 0.01-0.08 gbye=268) IMMATURE GRANULOCYTES-RELATIVE PERCENT (BEAKER) 0 % 0-1 (test vony=0685) POCT-GLUCOSE [id number] 21:52:00 Test Item Value Reference Range Comments POC-GLUCOSE METER (BEAKER) 241 mg/dL 70-110 TESTED AT [address] (test qmpy=7162) [place] [address] POCT-GLUCOSE [id number] 17:36:00 Test Item Value Reference Range Comments POC-GLUCOSE METER (BEAKER) 291 mg/dL 70-110 TESTED AT [address] (test umid=3091) [place] [id number] BODY FLUID CELL COUNT WITH [id number] 13:52:00 Test Item Value Reference Range Comments APPEARANCE FLUID (BEAKER) (test iugj=337) Clear Clear COLOR FLUID (BEAKER) (test rszh=508) Yellow Colorless, Straw RBC FLUID (BEAKER) (test thiq=041) 1815 /cu mm <=1 ADJUSTED WBC FLUID (BEAKER) (test xmjt=0429) 79 /cu mm <=5 LINING CELLS (BEAKER) (test ooct=8397) 14 /cu mm <=1 NEUTROPHILS FLUID (BEAKER) (test ifht=2597) 0 % LYMPHS FLUID (BEAKER) (test nhyp=120) 25 % MONO/MACROPHAGE FLUID (BEAKER) (test lkin=758) 74 % EOSINOPHILS FLUID (BEAKER) (test bqeu=144) 1 % BASO FLUID (BEAKER) (test czxa=364) 0 % CONTAINER BODY FLUID (BEAKER) (test tpvu=9386) EDTA Tube HEMOGLOBIN [id number] 13:47:00 Test Item Value Reference Range Comments HEMOGLOBIN A1C (BEAKER) (test ncyf=012) 8.4 % 4.3-6.1 POCT-GLUCOSE [id number] 11:56:00 Test Item Value Reference Range Comments POC-GLUCOSE METER (BEAKER) 223 mg/dL 70-110 TESTED AT [facility] [address] (test meik=1942) [facility] [address] POCT-GLUCOSE [id number] 08:31:00 Test Item Value Reference Range Comments POC-GLUCOSE METER (BEAKER) 257 mg/dL 70-110 TESTED AT [facility] [address] [facility] (test fezk=6259) [facility] [address] T4, [id number] 08:29:00 Test Item Value Reference Range Comments FREE T4 (BEAKER) (test rniq=071) 0.41 ng/dL 0.70-1.48 BASIC METABOLIC [id number] 08:28:00 Test Item Value Reference Range Comments SODIUM (BEAKER) (test 136 meq/L 136-145 blms=301) POTASSIUM (BEAKER) (test 3.4 meq/L 3.5-5.1 eylr=620) CHLORIDE (BEAKER) (test 104 meq/L 98-107 tfmo=462) CO2 (BEAKER) (test 27 meq/L 22-29 fqad=551) BLOOD UREA NITROGEN 18 mg/dL 7-21 (BEAKER) (test eljx=195) CREATININE (BEAKER) (test 1.57 mg/dL 0.57-1.25 rvdn=461) GLUCOSE RANDOM (BEAKER) 235 mg/dL 70-105 (test wejp=803) CALCIUM (BEAKER) (test 7.8 mg/dL 8.4-10.2 bwex=021) EGFR (BEAKER) (test 33 mL/min/1.73 sq m ESTIMATED GFR IS NOT jalx=4698) ACCURATE CREATININE CLEARANCE IN PREDICTING GLOMERULAR FILTRATION RATE. ESTIMATED GFR IS NOT APPLICABLE FOR DIALYSIS PATIENTS. Specimen slightly [id number] 08:14:00 Test Item Value Reference Range Comments PHOSPHORUS (BEAKER) (test vpug=357) 2.4 mg/dL 2.3-4.7 [id number] 08:14:00 Test Item Value Reference Range Comments MAGNESIUM (BEAKER) (test nhub=575) 1.5 mg/dL 1.6-2.6 HEPATIC FUNCTION [id number] 08:14:00 Test Item Value Reference Range Comments TOTAL PROTEIN (BEAKER) (test mylf=856) 5.1 gm/dL 6.0-8.3 ALBUMIN (BEAKER) (test jmpw=9555) 2.5 g/dL 3.5-5.0 BILIRUBIN TOTAL (BEAKER) (test gewm=938) 1.3 mg/dL 0.2-1.2 BILIRUBIN DIRECT (BEAKER) (test zshk=332) 0.7 mg/dL 0.1-0.5 ALKALINE PHOSPHATASE (BEAKER) (test axqz=488) 107 U/L 40-150 AST (SGOT) (BEAKER) (test bsys=038) 27 U/L 5-34 ALT (SGPT) (BEAKER) (test vavl=673) 11 U/L 6-55 Specimen slightly ictericTSH/FREE T4 IF [id number] 07:00:00 Test Item Value Reference Range Comments THYROID STIMULATING HORMONE (BEAKER) (test 59.61 uIU/mL 0.35-4.94 xvhf=825) PROTHROMBIN [id number] 05:56:00 Test Item Value Reference Range Comments PROTIME (BEAKER) (test qjhj=549) 14.3 seconds 11.9-14.2 INR (BEAKER) (test djfu=406) 1.2 <=5.9 Effective 04/01/2019: PT Reference Range ChangeNew: 11.9-14.2 Previous: 11.7- 14.7RECOMMENDED COUMADIN/WARFARIN INR THERAPY RANGESSTANDARD DOSE: 2.0-3.0 Includes: PROPHYLAXIS for venous thrombosis, systemic embolization; TREATMENT for venous thrombosis and/or pulmonary embolus.HIGH RISK: Target INR is2.5-3.5 for patients wiht mechanical heart valves.CALCIUM, [id number] 05:43:00 Test Item Value Reference Range Comments CALCIUM IONIZED (BEAKER) (test pova=219) 0.97 mmol/L 1.12-1.27 PH, BLOOD (BEAKER) (test xvmm=9995) 7.45 CBC W/PLT COUNT & AUTO [id number] 05:21:00 Test Item Value Reference Range Comments WHITE BLOOD CELL COUNT (BEAKER) (test fstd=068) 5.5 K/ L 3.5-10.5 RED BLOOD CELL COUNT (BEAKER) (test zjoj=242) 3.06 M/ L 3.93-5.22 HEMOGLOBIN (BEAKER) (test qwcq=723) 8.3 GM/DL 11.2-15.7 HEMATOCRIT (BEAKER) (test pzoz=386) 26.3 % 34.1-44.9 MEAN CORPUSCULAR VOLUME (BEAKER) (test tmpg=107) 85.9 fL 79.4-94.8 MEAN CORPUSCULAR HEMOGLOBIN (BEAKER) (test 27.1 pg 25.6-32.2 nzmq=867) MEAN CORPUSCULAR HEMOGLOBIN CONC (BEAKER) (test 31.6 GM/DL 32.2-35.5 crkr=660) RED CELL DISTRIBUTION WIDTH (BEAKER) (test 17.2 % 11.7-14.4 cmnr=219) PLATELET COUNT (BEAKER) (test nhva=696) 154 K/CU MM 150-450 MEAN PLATELET VOLUME (BEAKER) (test mxgi=809) 8.9 fL 9.4-12.3 NUCLEATED RED BLOOD CELLS (BEAKER) (test 0 /100 WBC 0-0 akla=252) NEUTROPHILS RELATIVE PERCENT (BEAKER) (test 61 % zqbt=579) LYMPHOCYTES RELATIVE PERCENT (BEAKER) (test 21 % qwnt=853) MONOCYTES RELATIVE PERCENT (BEAKER) (test 10 % pizk=137) EOSINOPHILS RELATIVE PERCENT (BEAKER) (test 8 % ddhc=023) BASOPHILS RELATIVE PERCENT (BEAKER) (test 1 % iply=002) NEUTROPHILS ABSOLUTE COUNT (BEAKER) (test 3.33 K/ L 1.56-6.13 bovy=966) LYMPHOCYTES ABSOLUTE COUNT (BEAKER) (test 1.13 K/ L 1.18-3.74 cgze=564) MONOCYTES ABSOLUTE COUNT (BEAKER) (test 0.55 K/ L 0.24-0.36 wjem=863) EOSINOPHILS ABSOLUTE COUNT (BEAKER) (test 0.42 K/ L 0.04-0.36 botv=336) BASOPHILS ABSOLUTE COUNT (BEAKER) (test 0.06 K/ L 0.01-0.08 kqre=232) IMMATURE GRANULOCYTES-RELATIVE PERCENT (BEAKER) 0 % 0-1 (test mgxn=7065) POCT-GLUCOSE [id number] 21:18:00 Test Item Value Reference Range Comments POC-GLUCOSE METER (BEAKER) 258 mg/dL 70-110 TESTED AT [address] (test llcf=7569) [facility] [address] POCT-GLUCOSE [id number] 17:42:00 Test Item Value Reference Range Comments POC-GLUCOSE METER (BEAKER) 232 mg/dL 70-110 TESTED AT [address] (test yjxg=1886) [facility] [address] POCT-GLUCOSE [id number] 12:51:00 Test Item Value Reference Range Comments POC-GLUCOSE METER (BEAKER) 206 mg/dL 70-110 TESTED AT [address] (test ylsc=1847) [facility] [address] POCT-GLUCOSE [id number] 07:53:00 Test Item Value Reference Range Comments POC-GLUCOSE METER (BEAKER) 219 mg/dL 70-110 TESTED AT [address] (test rlcw=3110) [facility] [address] COMPREHENSIVE METABOLIC [id number] 06:52:00 Test Item Value Reference Range Comments TOTAL PROTEIN (BEAKER) 4.9 gm/dL 6.0-8.3 (test wetc=029) ALBUMIN (BEAKER) (test 2.3 g/dL 3.5-5.0 enzc=8872) ALKALINE PHOSPHATASE 119 U/L 40-150 (BEAKER) (test amwf=605) BILIRUBIN TOTAL (BEAKER) 1.1 mg/dL 0.2-1.2 (test mqgs=587) SODIUM (BEAKER) (test 135 meq/L 136-145 iweo=458) POTASSIUM (BEAKER) (test 4.0 meq/L 3.5-5.1 wdwq=412) CHLORIDE (BEAKER) (test 105 meq/L 98-107 ayuf=616) CO2 (BEAKER) (test 26 meq/L 22-29 yvnp=494) BLOOD UREA NITROGEN 18 mg/dL 7-21 (BEAKER) (test bauc=107) CREATININE (BEAKER) (test 1.38 mg/dL 0.57-1.25 svid=289) GLUCOSE RANDOM (BEAKER) 234 mg/dL 70-105 (test wjbp=032) CALCIUM (BEAKER) (test 7.8 mg/dL 8.4-10.2 mpnt=403) AST (SGOT) (BEAKER) (test 29 U/L 5-34 tusb=313) ALT (SGPT) (BEAKER) (test 13 U/L 6-55 rxpk=035) EGFR (BEAKER) (test 39 mL/min/1.73 sq m ESTIMATED GFR IS NOT nhiw=6976) ACCURATE CREATININE CLEARANCE IN PREDICTING GLOMERULAR FILTRATION RATE. ESTIMATED GFR IS NOT APPLICABLE FOR DIALYSIS PATIENTS. [id number] 06:47:00 Test Item Value Reference Range Comments PHOSPHORUS (BEAKER) (test bmlv=542) 2.0 mg/dL 2.3-4.7 [id number] 06:47:00 Test Item Value Reference Range Comments MAGNESIUM (BEAKER) (test bgpw=990) 1.7 mg/dL 1.6-2.6 HEPATIC FUNCTION [id number] 06:47:00 Test Item Value Reference Range Comments TOTAL PROTEIN (BEAKER) (test czwt=225) 4.9 gm/dL 6.0-8.3 ALBUMIN (BEAKER) (test evqy=7457) 2.3 g/dL 3.5-5.0 BILIRUBIN TOTAL (BEAKER) (test omfp=746) 1.1 mg/dL 0.2-1.2 BILIRUBIN DIRECT (BEAKER) (test larp=487) 0.6 mg/dL 0.1-0.5 ALKALINE PHOSPHATASE (BEAKER) (test ysle=808) 119 U/L 40-150 AST (SGOT) (BEAKER) (test gsxj=408) 29 U/L 5-34 ALT (SGPT) (BEAKER) (test vrme=324) 13 U/L 6-55 CBC W/PLT COUNT & AUTO [id number] 06:32:00 Test Item Value Reference Range Comments WHITE BLOOD CELL COUNT (BEAKER) (test dnyu=097) 5.3 K/ L 3.5-10.5 RED BLOOD CELL COUNT (BEAKER) (test qnqa=672) 3.05 M/ L 3.93-5.22 HEMOGLOBIN (BEAKER) (test jtoa=876) 8.3 GM/DL 11.2-15.7 HEMATOCRIT (BEAKER) (test bqbp=102) 26.7 % 34.1-44.9 MEAN CORPUSCULAR VOLUME (BEAKER) (test alsj=314) 87.5 fL 79.4-94.8 MEAN CORPUSCULAR HEMOGLOBIN (BEAKER) (test 27.2 pg 25.6-32.2 mynm=196) MEAN CORPUSCULAR HEMOGLOBIN CONC (BEAKER) (test 31.1 GM/DL 32.2-35.5 ridl=698) RED CELL DISTRIBUTION WIDTH (BEAKER) (test 17.4 % 11.7-14.4 rvfd=921) PLATELET COUNT (BEAKER) (test jwgc=810) 161 K/CU MM 150-450 MEAN PLATELET VOLUME (BEAKER) (test wkpt=744) 8.8 fL 9.4-12.3 NUCLEATED RED BLOOD CELLS (BEAKER) (test 0 /100 WBC 0-0 wnop=113) NEUTROPHILS RELATIVE PERCENT (BEAKER) (test 52 % zkeo=877) LYMPHOCYTES RELATIVE PERCENT (BEAKER) (test 27 % uear=938) MONOCYTES RELATIVE PERCENT (BEAKER) (test 9 % wgpg=083) EOSINOPHILS RELATIVE PERCENT (BEAKER) (test 10 % tzyh=946) BASOPHILS RELATIVE PERCENT (BEAKER) (test 2 % tbbz=404) NEUTROPHILS ABSOLUTE COUNT (BEAKER) (test 2.75 K/ L 1.56-6.13 avwg=555) LYMPHOCYTES ABSOLUTE COUNT (BEAKER) (test 1.42 K/ L 1.18-3.74 qgbx=845) MONOCYTES ABSOLUTE COUNT (BEAKER) (test 0.48 K/ L 0.24-0.36 bmsi=867) EOSINOPHILS ABSOLUTE COUNT (BEAKER) (test 0.54 K/ L 0.04-0.36 djhz=887) BASOPHILS ABSOLUTE COUNT (BEAKER) (test 0.08 K/ L 0.01-0.08 vcch=857) IMMATURE GRANULOCYTES-RELATIVE PERCENT (BEAKER) 0 % 0-1 (test nmtf=0528) B-TYPE NATRIURETIC FACTOR (BNP)2019-05-20 06:27:00 Test Item Value Reference Range Comments B-TYPE NATRIURETIC PEPTIDE (BEAKER) (test 274 pg/mL 0-100 xskv=005) VANCOMYCIN LEVEL, [id number] 06:16:00 Test Item Value Reference Range Comments VANCOMYCIN TROUGH (BEAKER) (test pkgt=235) 5.8 ug/mL 10.0-20.0 [id number] 06:11:00 Test Item Value Reference Range Comments D-DIMER QUANTITATIVE (BEAKER) (test vmow=898) 3.95 MG/L FEU <0.50 Intended Use: The [...] exclusion of thrombosis is within 95-100% range.CALCIUM, [id number] 06:04:00 Test Item Value Reference Range Comments CALCIUM IONIZED (BEAKER) (test pomq=405) 1.06 mmol/L 1.12-1.27 PH, BLOOD (BEAKER) (test ysdv=8899) 7.43 PROTHROMBIN [id number] 06:02:00 Test Item Value Reference Range Comments PROTIME (BEAKER) (test ajuz=963) 13.8 seconds 11.9-14.2 INR (BEAKER) (test mgas=685) 1.1 <=5.9 Effective 04/01/2019: PT Reference Range ChangeNew: 11.9-14.2 Previous: 11.7- 14.7RECOMMENDED COUMADIN/WARFARIN INR THERAPY RANGESSTANDARD DOSE: 2.0-3.0 Includes: PROPHYLAXIS for venous thrombosis, systemic embolization; TREATMENT for venous thrombosis and/or pulmonary embolus.HIGH RISK: Target INR is2.5-3.5 for patients wiht mechanical heart valves.TROPONIN [id number] 02:44:00 Test Item Value Reference Range Comments TROPONIN I (BEAKER) (test hfcj=414) 0.01 ng/mL 0.00-0.03 Troponin I (TnI) levels [...] acute neurological disease, and persistent tachyarrhythmia.PROTEIN, RANDOM [id number] 01:50:00 Test Item Value Reference Range Comments PROTEIN, URINE (BEAKER) (test caee=3044) 20 mg/dL 0-14 CREATININE, RANDOM [id number] 01:49:00 Test Item Value Reference Range Comments CREATININE URINE (BEAKER) (test ouji=318) 184.6 mg/dL Reference Range: No NormalsRAD, CHEST, 1 VIEW, NON [id number] 01:49: 00Reason for exam:->anasarcaShould this be performed [...] Verified Date/Time: 05/20/2019 01:49 :05 Reading Location: [address] Reading Room POCT-GLUCOSE [id number] 00:36:00 Test Item Value Reference Range Comments POC-GLUCOSE METER (BEAKER) 326 mg/dL 70-110 TESTED AT [facility] [address] [place] [address] (test nbbv=0587) [facility] [address] URINALYSIS W/ [id number] 00:02:00 Test Item Value Reference Range Comments COLOR (BEAKER) (test vmyl=104) Yellow CLARITY (BEAKER) (test qdwf=391) Clear SPECIFIC GRAVITY UA (BEAKER) (test epec=514) 1.020 1.001-1.035 PH UA (BEAKER) (test vzrl=937) 5.5 5.0-8.0 PROTEIN UA (BEAKER) (test svkt=926) 20 mg/dL Negative GLUCOSE UA (BEAKER) (test cxwk=907) 300 mg/dL Negative KETONES UA (BEAKER) (test zbfw=718) Negative Negative BILIRUBIN UA (BEAKER) (test qjpi=560) Negative Negative BLOOD UA (BEAKER) (test skav=892) Negative Negative NITRITE UA (BEAKER) (test lbva=995) Negative Negative LEUKOCYTE ESTERASE UA (BEAKER) (test terh=494) Small Negative UROBILINOGEN UA (BEAKER) (test wqwv=159) 2.0 mg/dL 0.2-1.0 RBC UA (BEAKER) (test iwag=471) 2 /HPF WBC UA (BEAKER) (test vazg=721) 2 /HPF MUCUS (BEAKER) (test vegx=2913) Rare SQUAMOUS EPITHELIAL (BEAKER) (test qvxy=754) 6 /HPF HYALINE CASTS (BEAKER) (test jeob=950) 5 /LPF SOURCE(BEAKER) (test qrii=7271) Urine, Voided T4, [id number] 22:29:00 Test Item Value Reference Range Comments FREE T4 (BEAKER) (test rewp=588) 0.44 ng/dL 0.70-1.48 HEMOGLOBIN [id number] 22:15:00 Test Item Value Reference Range Comments HEMOGLOBIN A1C (BEAKER) (test qfnt=083) 8.6 % 4.3-6.1 TSH/FREE T4 IF [id number] 21:43:00 Test Item Value Reference Range Comments THYROID STIMULATING HORMONE (BEAKER) (test 72.01 uIU/mL 0.35-4.94 aqgl=425) B-TYPE NATRIURETIC FACTOR (BNP)2019-05-19 21:29:00 Test Item Value Reference Range Comments B-TYPE NATRIURETIC PEPTIDE (BEAKER) (test 222 pg/mL 0-100 vxna=796) PROTHROMBIN [id number] 21:26:00 Test Item Value Reference Range Comments PROTIME (BEAKER) (test olyn=153) 13.6 seconds 11.9-14.2 INR (BEAKER) (test ksqt=791) 1.1 <=5.9 Effective 04/01/2019: PT Reference Range ChangeNew: 11.9-14.2 Previous: 11.7- 14.7RECOMMENDED COUMADIN/WARFARIN INR THERAPY RANGESSTANDARD DOSE: 2.0-3.0 Includes: PROPHYLAXIS for venous thrombosis, systemic embolization; TREATMENT for venous thrombosis and/or pulmonary embolus.HIGH RISK: Target INR is2.5-3.5 for patients wiht mechanical heart valves.TROPONIN [id number] 21:26:00 Test Item Value Reference Range Comments TROPONIN I (BEAKER) (test rhcd=545) < ng/mL 0.00-0.03 Troponin I (TnI) levels [...] failure, acidosis, acute neurological disease, and persistent tachyarrhythmia.[id number] 21:18:00 Test Item Value Reference Range Comments MAGNESIUM (BEAKER) (test 1.8 mg/dL 1.6-2.6 Specimen markedly hemolyzed npkb=247) [id number] 21:18:00 Test Item Value Reference Range Comments PHOSPHORUS (BEAKER) (test 2.1 mg/dL 2.3-4.7 Specimen markedly hemolyzed mrsj=218) BASIC METABOLIC [id number] 21:18:00 Test Item Value Reference Range Comments SODIUM (BEAKER) (test 136 meq/L 136-145 hets=643) POTASSIUM (BEAKER) (test 4.8 meq/L 3.5-5.1 Specimen markedly fiyn=083) hemolyzed CHLORIDE (BEAKER) (test 103 meq/L 98-107 abao=659) CO2 (BEAKER) (test 29 meq/L 22-29 xfgg=794) BLOOD UREA NITROGEN 17 mg/dL 7-21 (BEAKER) (test ttli=771) CREATININE (BEAKER) (test 1.33 mg/dL 0.57-1.25 Specimen markedly cwoj=085) hemolyzed GLUCOSE RANDOM (BEAKER) 248 mg/dL 70-105 (test qyor=976) CALCIUM (BEAKER) (test 8.1 mg/dL 8.4-10.2 fccz=086) EGFR (BEAKER) (test 41 mL/min/1.73 sq m ESTIMATED GFR IS NOT gaii=6942) ACCURATE CREATININE CLEARANCE IN PREDICTING GLOMERULAR FILTRATION RATE. ESTIMATED GFR IS NOT APPLICABLE FOR DIALYSIS PATIENTS. HEPATIC FUNCTION [id number] 21:18:00 Test Item Value Reference Range Comments TOTAL PROTEIN (BEAKER) (test 6.4 gm/dL 6.0-8.3 Specimen markedly hemolyzed gtth=701) ALBUMIN (BEAKER) (test 2.5 g/dL 3.5-5.0 Specimen markedly hemolyzed yfkz=0114) BILIRUBIN TOTAL (BEAKER) (test 1.3 mg/dL 0.2-1.2 Specimen markedly hemolyzed blcw=744) BILIRUBIN DIRECT (BEAKER) (test 0.3 mg/dL 0.1-0.5 Specimen markedly hemolyzed zwdy=345) ALKALINE PHOSPHATASE (BEAKER) 143 U/L 40-150 (test rglz=936) AST (SGOT) (BEAKER) (test 61 U/L 5-34 Specimen markedly hemolyzed hera=727) ALT (SGPT) (BEAKER) (test 15 U/L 6-55 Specimen markedly hemolyzed efuh=449) CBC W/PLT COUNT & AUTO [id number] 20:58:00 Test Item Value Reference Range Comments WHITE BLOOD CELL COUNT (BEAKER) (test ggcc=935) 6.0 K/ L 3.5-10.5 RED BLOOD CELL COUNT (BEAKER) (test yoea=335) 3.57 M/ L 3.93-5.22 HEMOGLOBIN (BEAKER) (test rzbn=447) 9.8 GM/DL 11.2-15.7 HEMATOCRIT (BEAKER) (test anga=728) 30.6 % 34.1-44.9 MEAN CORPUSCULAR VOLUME (BEAKER) (test hvfw=830) 85.7 fL 79.4-94.8 MEAN CORPUSCULAR HEMOGLOBIN (BEAKER) (test 27.5 pg 25.6-32.2 dkzx=492) MEAN CORPUSCULAR HEMOGLOBIN CONC (BEAKER) (test 32.0 GM/DL 32.2-35.5 yowb=967) RED CELL DISTRIBUTION WIDTH (BEAKER) (test 17.4 % 11.7-14.4 upgi=357) PLATELET COUNT (BEAKER) (test xeay=580) 199 K/CU MM 150-450 MEAN PLATELET VOLUME (BEAKER) (test ylkr=517) 9.1 fL 9.4-12.3 NUCLEATED RED BLOOD CELLS (BEAKER) (test 0 /100 WBC 0-0 hckq=666) NEUTROPHILS RELATIVE PERCENT (BEAKER) (test 53 % sfpy=018) LYMPHOCYTES RELATIVE PERCENT (BEAKER) (test 27 % xgek=129) MONOCYTES RELATIVE PERCENT (BEAKER) (test 8 % bsxw=281) EOSINOPHILS RELATIVE PERCENT (BEAKER) (test 10 % aaah=527) BASOPHILS RELATIVE PERCENT (BEAKER) (test 1 % yjfj=338) NEUTROPHILS ABSOLUTE COUNT (BEAKER) (test 3.21 K/ L 1.56-6.13 nnlg=027) LYMPHOCYTES ABSOLUTE COUNT (BEAKER) (test 1.62 K/ L 1.18-3.74 galr=247) MONOCYTES ABSOLUTE COUNT (BEAKER) (test 0.50 K/ L 0.24-0.36 moqn=865) EOSINOPHILS ABSOLUTE COUNT (BEAKER) (test 0.62 K/ L 0.04-0.36 arzk=681) BASOPHILS ABSOLUTE COUNT (BEAKER) (test 0.08 K/ L 0.01-0.08 stdr=612) IMMATURE GRANULOCYTES-RELATIVE PERCENT (BEAKER) 0 % 0-1 (test wsou=4183) BODY FLUID CULTURE + GRAM [id number] 13:44:00 Test Item Value Reference Range Comments CULTURE (BEAKER) (test tijj=8085) No growth GRAM STAIN RESULT (BEAKER) (test <1+ White blood cells seen siya=9190) GRAM STAIN RESULT (BEAKER) (test No organisms seen wzxm=63422) BODY FLUID CULTURE + GRAM [id number] 14:06:00 Test Item Value Reference Range Comments CULTURE (BEAKER) (test spyw=6643) No growth GRAM STAIN RESULT (BEAKER) (test No White blood cells seen poxf=5469) GRAM STAIN RESULT (BEAKER) (test No organisms seen zcqy=25692) BASIC METABOLIC [id number] 08:41:00 Test Item Value Reference Range Comments SODIUM (BEAKER) (test 132 meq/L 136-145 mgzl=745) POTASSIUM (BEAKER) (test 4.4 meq/L 3.5-5.1 xovr=992) CHLORIDE (BEAKER) (test 100 meq/L 98-107 lqeh=433) CO2 (BEAKER) (test 25 meq/L 22-29 dowa=127) BLOOD UREA NITROGEN 53 mg/dL 7-21 (BEAKER) (test fnou=471) CREATININE (BEAKER) (test 1.80 mg/dL 0.57-1.25 snwq=491) GLUCOSE RANDOM (BEAKER) 211 mg/dL 70-105 (test qmop=811) CALCIUM (BEAKER) (test 9.0 mg/dL 8.4-10.2 phew=470) EGFR (BEAKER) (test 29 mL/min/1.73 sq m ESTIMATED GFR IS NOT mflb=1723) ACCURATE CREATININE CLEARANCE IN PREDICTING GLOMERULAR FILTRATION RATE. ESTIMATED GFR IS NOT APPLICABLE FOR DIALYSIS PATIENTS. POCT-GLUCOSE [id number] 08:16:00 Test Item Value Reference Range Comments POC-GLUCOSE METER (BEAKER) 213 mg/dL 70-110 TESTED AT [facility] [address] [place] [address] (test clgq=5304) [facility] [address] HEPATIC FUNCTION [id number] 06:43:00 Test Item Value Reference Range Comments TOTAL PROTEIN (BEAKER) (test gspi=069) 5.7 gm/dL 6.0-8.3 ALBUMIN (BEAKER) (test goyg=8163) 4.2 g/dL 3.5-5.0 BILIRUBIN TOTAL (BEAKER) (test psvc=816) 1.6 mg/dL 0.2-1.2 BILIRUBIN DIRECT (BEAKER) (test ysuc=464) 0.8 mg/dL 0.1-0.5 ALKALINE PHOSPHATASE (BEAKER) (test sksa=875) 95 U/L 40-150 AST (SGOT) (BEAKER) (test bnzr=213) 71 U/L 5-34 ALT (SGPT) (BEAKER) (test bfrv=126) 68 U/L 6-55 POCT-GLUCOSE [id number] 22:00:00 Test Item Value Reference Range Comments POC-GLUCOSE METER (BEAKER) 341 mg/dL 70-110 Notified ALEXI ENNIS/TESTED AT [facility] (test ojez=2198) [address] [place] [id number] BODY FLUID CELL COUNT WITH [id number] 20:00:00 Test Item Value Reference Range Comments APPEARANCE FLUID (BEAKER) (test aanp=814) Hazy Clear COLOR FLUID (BEAKER) (test zvut=495) Straw Colorless, Straw RBC FLUID (BEAKER) (test yqmq=035) 4000 /cu mm <=1 ADJUSTED WBC FLUID (BEAKER) (test ljdc=1559) 140 /cu mm <=5 LINING CELLS (BEAKER) (test jhov=0184) 1 /cu mm <=1 NEUTROPHILS FLUID (BEAKER) (test czch=1289) 1 % LYMPHS FLUID (BEAKER) (test ohgi=576) 30 % MONO/MACROPHAGE FLUID (BEAKER) (test enyc=966) 69 % EOSINOPHILS FLUID (BEAKER) (test hwua=768) 0 % BASO FLUID (BEAKER) (test xlky=423) 0 % CONTAINER BODY FLUID (BEAKER) (test lbpj=1769) EDTA Tube U/S, [id number] 16:42:00Reason for exam:->ascites limited 6 litersFINAL REPORT PROCEDURE: Ultrasound-guided paracentesis. INDICATION: 59-year-old woman with ascites. DESCRIPTION: After obtaining informed written consent, ultrasound scan of the abdomen identified ascites in the right lower quadrant. The overlying skin was prepped and draped in the usual, sterile fashion and local 2% lidocaine anesthesia was administered. A 5 [place] catheter was advanced into the peritoneal cavity and 6000 cc of serous fluid was removed. The catheter was removed without immediate complication. Samples were sent for analysis. IMPRESSION:Uncomplicated ultrasound-guided paracentesis with 6000 cc fluid removed. Signed: Antwon Bose MDReport Verified Date/Time: 02/24/2019 16:42:07 Reading Location: [address] Ultrasound Reading Room POCT-GLUCOSE [id number] 13:07:00 Test Item Value Reference Range Comments POC-GLUCOSE METER (BEAKER) 290 mg/dL 70-110 TESTED AT [address] (test pltk=9285) [facility] [address] PROTHROMBIN [id number] 12:01:00 Test Item Value Reference Range Comments PROTIME (BEAKER) (test jnsc=365) 14.3 seconds 11.7-14.7 INR (BEAKER) (test dhle=008) 1.1 <=5.9 RECOMMENDED COUMADIN/WARFARIN INR THERAPY RANGESSTANDARD DOSE: 2.0 - 3.0 Includes: PROPHYLAXIS forvenous thrombosis, systemic embolization; TREATMENT for venous thrombosis and/or pulmonary embolus.HIGH RISK: Target INR is 2.5-3.5 for patients with mechanical heart valves.[id number] 12:01:00 Test Item Value Reference Range Comments PARTIAL THROMBOPLASTIN TIME (BEAKER) (test 32.5 seconds 22.5-36.0 auoj=039) POCT-GLUCOSE [id number] 08:39:00 Test Item Value Reference Range Comments POC-GLUCOSE METER (BEAKER) 279 mg/dL 70-110 TESTED AT [facility] [address] [facility] (test kome=7869) [place] [address] CALCIUM, [id number] 07:04:00 Test Item Value Reference Range Comments CALCIUM IONIZED (BEAKER) (test qmwa=438) 1.08 mmol/L 1.12-1.27 PH, BLOOD (BEAKER) (test ztdz=0402) 7.38 COMPREHENSIVE METABOLIC [id number] 05:59:00 Test Item Value Reference Range Comments TOTAL PROTEIN (BEAKER) 5.5 gm/dL 6.0-8.3 (test gvyj=610) ALBUMIN (BEAKER) (test 3.8 g/dL 3.5-5.0 zpot=1113) ALKALINE PHOSPHATASE 125 U/L 40-150 (BEAKER) (test jrst=442) BILIRUBIN TOTAL (BEAKER) 0.9 mg/dL 0.2-1.2 (test cuvp=042) SODIUM (BEAKER) (test 130 meq/L 136-145 tqyk=437) POTASSIUM (BEAKER) (test 4.0 meq/L 3.5-5.1 rtmq=197) CHLORIDE (BEAKER) (test 99 meq/L 98-107 whte=068) CO2 (BEAKER) (test 23 meq/L 22-29 frli=014) BLOOD UREA NITROGEN 51 mg/dL 7-21 (BEAKER) (test vyai=279) CREATININE (BEAKER) (test 2.07 mg/dL 0.57-1.25 pupx=951) GLUCOSE RANDOM (BEAKER) 320 mg/dL 70-105 (test zkkz=973) CALCIUM (BEAKER) (test 8.7 mg/dL 8.4-10.2 wdsd=860) AST (SGOT) (BEAKER) (test 111 U/L 5-34 rkrt=663) ALT (SGPT) (BEAKER) (test 98 U/L 6-55 djcv=504) EGFR (BEAKER) (test 24 mL/min/1.73 sq m ESTIMATED GFR IS NOT emve=0839) ACCURATE CREATININE CLEARANCE IN PREDICTING GLOMERULAR FILTRATION RATE. ESTIMATED GFR IS NOT APPLICABLE FOR DIALYSIS PATIENTS. [id number] 05:58:00 Test Item Value Reference Range Comments PHOSPHORUS (BEAKER) (test cvjr=303) 2.1 mg/dL 2.3-4.7 [id number] 05:58:00 Test Item Value Reference Range Comments MAGNESIUM (BEAKER) (test uzsd=168) 2.3 mg/dL 1.6-2.6 HEPATIC FUNCTION [id number] 05:58:00 Test Item Value Reference Range Comments TOTAL PROTEIN (BEAKER) (test rcff=636) 5.5 gm/dL 6.0-8.3 ALBUMIN (BEAKER) (test zaft=5553) 3.8 g/dL 3.5-5.0 BILIRUBIN TOTAL (BEAKER) (test lnrk=534) 0.9 mg/dL 0.2-1.2 BILIRUBIN DIRECT (BEAKER) (test qmfw=612) 0.4 mg/dL 0.1-0.5 ALKALINE PHOSPHATASE (BEAKER) (test jcia=124) 125 U/L 40-150 AST (SGOT) (BEAKER) (test ctee=941) 111 U/L 5-34 ALT (SGPT) (BEAKER) (test azox=935) 98 U/L 6-55 CBC W/PLT COUNT & AUTO [id number] 05:29:00 Test Item Value Reference Range Comments WHITE BLOOD CELL COUNT (BEAKER) (test cjrp=405) 5.9 K/ L 3.5-10.5 RED BLOOD CELL COUNT (BEAKER) (test jxdr=924) 3.00 M/ L 3.93-5.22 HEMOGLOBIN (BEAKER) (test egyu=300) 8.5 GM/DL 11.2-15.7 HEMATOCRIT (BEAKER) (test crzr=382) 25.3 % 34.1-44.9 MEAN CORPUSCULAR VOLUME (BEAKER) (test vzff=071) 84.3 fL 79.4-94.8 MEAN CORPUSCULAR HEMOGLOBIN (BEAKER) (test 28.3 pg 25.6-32.2 uggj=743) MEAN CORPUSCULAR HEMOGLOBIN CONC (BEAKER) (test 33.6 GM/DL 32.2-35.5 binj=405) RED CELL DISTRIBUTION WIDTH (BEAKER) (test 14.8 % 11.7-14.4 bsyu=693) PLATELET COUNT (BEAKER) (test mtrk=299) 146 K/CU MM 150-450 MEAN PLATELET VOLUME (BEAKER) (test rsjk=254) 10.1 fL 9.4-12.3 NUCLEATED RED BLOOD CELLS (BEAKER) (test 0 /100 WBC 0-0 awsy=815) NEUTROPHILS RELATIVE PERCENT (BEAKER) (test 67 % ejdk=745) LYMPHOCYTES RELATIVE PERCENT (BEAKER) (test 16 % nocw=126) MONOCYTES RELATIVE PERCENT (BEAKER) (test 10 % maah=133) EOSINOPHILS RELATIVE PERCENT (BEAKER) (test 6 % jafo=661) BASOPHILS RELATIVE PERCENT (BEAKER) (test 1 % wocg=043) NEUTROPHILS ABSOLUTE COUNT (BEAKER) (test 3.94 K/ L 1.56-6.13 zxfg=895) LYMPHOCYTES ABSOLUTE COUNT (BEAKER) (test 0.96 K/ L 1.18-3.74 mnxp=826) MONOCYTES ABSOLUTE COUNT (BEAKER) (test 0.57 K/ L 0.24-0.36 kiyz=969) EOSINOPHILS ABSOLUTE COUNT (BEAKER) (test 0.37 K/ L 0.04-0.36 wpca=426) BASOPHILS ABSOLUTE COUNT (BEAKER) (test 0.03 K/ L 0.01-0.08 kwon=198) IMMATURE GRANULOCYTES-RELATIVE PERCENT (BEAKER) 0 % 0-1 (test xnip=2612) POCT-GLUCOSE [id number] 21:01:00 Test Item Value Reference Range Comments POC-GLUCOSE METER (BEAKER) 371 mg/dL 70-110 Notified ALEXI ENNIS/TESTED AT [facility] (test prxu=7071) [address] [place] [address] POCT-GLUCOSE [id number] 17:30:00 Test Item Value Reference Range Comments POC-GLUCOSE METER (BEAKER) 389 mg/dL 70-110 TESTED AT [address] (test vvto=4314) [facility] [address] POCT-GLUCOSE [id number] 08:50:00 Test Item Value Reference Range Comments POC-GLUCOSE METER (BEAKER) 303 mg/dL 70-110 TESTED AT [address] (test vlda=2314) [facility] [address] POCT-GLUCOSE [id number] 08:27:00 Test Item Value Reference Range Comments POC-GLUCOSE METER (BEAKER) 342 mg/dL 70-110 Will Repeat Test/TESTED AT (test eosq=4424) [facility] [address] [facility] [address] CALCIUM, [id number] 07:20:00 Test Item Value Reference Range Comments CALCIUM IONIZED (BEAKER) (test odka=650) 0.98 mmol/L 1.12-1.27 PH, BLOOD (BEAKER) (test xhvw=1562) 7.41 COMPREHENSIVE METABOLIC [id number] 07:05:00 Test Item Value Reference Range Comments TOTAL PROTEIN (BEAKER) 5.0 gm/dL 6.0-8.3 (test bbmy=908) ALBUMIN (BEAKER) (test 3.3 g/dL 3.5-5.0 rdaz=8909) ALKALINE PHOSPHATASE 126 U/L 40-150 (BEAKER) (test genp=967) BILIRUBIN TOTAL (BEAKER) 1.2 mg/dL 0.2-1.2 (test bjwr=859) SODIUM (BEAKER) (test 128 meq/L 136-145 tbey=273) POTASSIUM (BEAKER) (test 4.1 meq/L 3.5-5.1 fndq=469) CHLORIDE (BEAKER) (test 98 meq/L 98-107 gzyi=817) CO2 (BEAKER) (test 20 meq/L 22-29 vfry=705) BLOOD UREA NITROGEN 43 mg/dL 7-21 (BEAKER) (test tklp=202) CREATININE (BEAKER) (test 2.39 mg/dL 0.57-1.25 zsbp=115) GLUCOSE RANDOM (BEAKER) 305 mg/dL 70-105 (test qgkv=058) CALCIUM (BEAKER) (test 8.1 mg/dL 8.4-10.2 sbib=746) AST (SGOT) (BEAKER) (test 173 U/L 5-34 jvlg=267) ALT (SGPT) (BEAKER) (test 143 U/L 6-55 tvro=210) EGFR (BEAKER) (test 21 mL/min/1.73 sq m ESTIMATED GFR IS NOT cvwu=0593) ACCURATE CREATININE CLEARANCE IN PREDICTING GLOMERULAR FILTRATION RATE. ESTIMATED GFR IS NOT APPLICABLE FOR DIALYSIS PATIENTS. [id number] 06:56:00 Test Item Value Reference Range Comments PHOSPHORUS (BEAKER) (test cijl=070) 2.5 mg/dL 2.3-4.7 [id number] 06:56:00 Test Item Value Reference Range Comments MAGNESIUM (BEAKER) (test jwtt=631) 1.9 mg/dL 1.6-2.6 HEPATIC FUNCTION [id number] 06:56:00 Test Item Value Reference Range Comments TOTAL PROTEIN (BEAKER) (test ziku=311) 5.0 gm/dL 6.0-8.3 ALBUMIN (BEAKER) (test bimo=8404) 3.3 g/dL 3.5-5.0 BILIRUBIN TOTAL (BEAKER) (test audb=736) 1.2 mg/dL 0.2-1.2 BILIRUBIN DIRECT (BEAKER) (test fsbf=612) 0.6 mg/dL 0.1-0.5 ALKALINE PHOSPHATASE (BEAKER) (test ouaz=676) 126 U/L 40-150 AST (SGOT) (BEAKER) (test eveo=637) 173 U/L 5-34 ALT (SGPT) (BEAKER) (test xhye=267) 143 U/L 6-55 CBC W/PLT COUNT & AUTO [id number] 06:17:00 Test Item Value Reference Range Comments WHITE BLOOD CELL COUNT (BEAKER) (test famu=575) 5.7 K/ L 3.5-10.5 RED BLOOD CELL COUNT (BEAKER) (test haqy=672) 3.40 M/ L 3.93-5.22 HEMOGLOBIN (BEAKER) (test ovee=239) 9.2 GM/DL 11.2-15.7 HEMATOCRIT (BEAKER) (test ierf=017) 29.1 % 34.1-44.9 MEAN CORPUSCULAR VOLUME (BEAKER) (test apqx=137) 85.6 fL 79.4-94.8 MEAN CORPUSCULAR HEMOGLOBIN (BEAKER) (test 27.1 pg 25.6-32.2 unxq=272) MEAN CORPUSCULAR HEMOGLOBIN CONC (BEAKER) (test 31.6 GM/DL 32.2-35.5 tqyr=845) RED CELL DISTRIBUTION WIDTH (BEAKER) (test 14.7 % 11.7-14.4 jqki=353) PLATELET COUNT (BEAKER) (test ehys=509) 128 K/CU MM 150-450 MEAN PLATELET VOLUME (BEAKER) (test eobc=378) 10.3 fL 9.4-12.3 NUCLEATED RED BLOOD CELLS (BEAKER) (test 0 /100 WBC 0-0 xmne=586) NEUTROPHILS RELATIVE PERCENT (BEAKER) (test 69 % zpxo=627) LYMPHOCYTES RELATIVE PERCENT (BEAKER) (test 15 % dnod=282) MONOCYTES RELATIVE PERCENT (BEAKER) (test 9 % vimm=958) EOSINOPHILS RELATIVE PERCENT (BEAKER) (test 6 % oxex=751) BASOPHILS RELATIVE PERCENT (BEAKER) (test 1 % caxe=614) NEUTROPHILS ABSOLUTE COUNT (BEAKER) (test 3.91 K/ L 1.56-6.13 fqru=315) LYMPHOCYTES ABSOLUTE COUNT (BEAKER) (test 0.86 K/ L 1.18-3.74 umoh=213) MONOCYTES ABSOLUTE COUNT (BEAKER) (test 0.51 K/ L 0.24-0.36 mlbw=020) EOSINOPHILS ABSOLUTE COUNT (BEAKER) (test 0.35 K/ L 0.04-0.36 ghtf=366) BASOPHILS ABSOLUTE COUNT (BEAKER) (test 0.03 K/ L 0.01-0.08 xgnq=615) IMMATURE GRANULOCYTES-RELATIVE PERCENT (BEAKER) 0 % 0-1 (test sxte=4487) BODY FLUID CELL COUNT WITH [id number] 17:06:00 Test Item Value Reference Range Comments APPEARANCE FLUID (BEAKER) (test ddeq=404) Hazy Clear COLOR FLUID (BEAKER) (test wujc=127) Yellow Colorless, Straw RBC FLUID (BEAKER) (test haon=580) 6000 /cu mm <=1 ADJUSTED WBC FLUID (BEAKER) (test htte=4414) 125 /cu mm <=5 LINING CELLS (BEAKER) (test wlzo=0001) 2 /cu mm <=1 NEUTROPHILS FLUID (BEAKER) (test skhv=3268) 6 % LYMPHS FLUID (BEAKER) (test kyzp=381) 21 % MONO/MACROPHAGE FLUID (BEAKER) (test xvyq=480) 73 % EOSINOPHILS FLUID (BEAKER) (test tqia=301) 0 % BASO FLUID (BEAKER) (test ulda=968) 0 % CONTAINER BODY FLUID (BEAKER) (test uijm=2054) EDTA Tube POCT-GLUCOSE [id number] 16:40:00 Test Item Value Reference Range Comments POC-GLUCOSE METER (BEAKER) 396 mg/dL 70-110 TESTED AT [facility] [address] (test mhwj=8320) [facility] [address] U/S, [id number] 16:12:00limit to 6 LReason for exam:->ascites, limit to 6 LFINAL REPORT Paracentesis dated 02/22/2019 Procedure: Ultrasound-guided paracentesis. Preprocedure diagnosis: Ascites Postprocedure diagnosis: Ascites Conscious sedation: None. Radiologist: Giovanni Haas M.D. Financial Recording Clerk: None Anesthesia: 1% Xylocaine mixed with sodium bicarbonate local anesthesia. Technique: After obtaining informed consent, ultrasound-guided paracentesis was performed under usual sterile technique. Using a 5 kazakh drainage catheter, puncture was made in the right lower quadrant abdomen. Approximately 6000 cc of serous fluid was removed. Patient tolerated the procedure well without complication. Complication: None Graft/ Implant: None Estimated Blood Loss: None Impression: Ultrasound-guided paracentesis. Signed: Giovanni Haas Verified Date/Time: 02/22/2019 16:12 :23 Reading Location: [facility] C013Y CT Body Reading Room RAD, CHEST, 1 VIEW, NON [id number] 12:22:00Reason for exam:->coughShould this be performed at [...] Verified Date/ Time: 02/22/2019 12:22:24 Reading Location: [facility] C013W Consult Reading Room POCT-GLUCOSE [id number] 07:55:00 Test Item Value Reference Range Comments POC-GLUCOSE METER (BEAKER) 317 mg/dL 70-110 TESTED AT [address] (test ovgx=5258) [facility] [address] POCT-GLUCOSE [id number] 07:24:00 Test Item Value Reference Range Comments POC-GLUCOSE METER (BEAKER) 386 mg/dL 70-110 Notified ALEXI ENNIS/TESTED AT [facility] (test jmyt=4876) [address] [place] [address] POCT-GLUCOSE [id number] 07:24:00 Test Item Value Reference Range Comments POC-GLUCOSE METER (BEAKER) 295 mg/dL 70-110 TESTED AT [address] (test bjdl=3567) [facility] [address] POCT-GLUCOSE [id number] 07:24:00 Test Item Value Reference Range Comments POC-GLUCOSE METER (BEAKER) 256 mg/dL 70-110 TESTED AT [address] (test ucui=5367) [facility] [address] BASIC METABOLIC [id number] 06:50:00 Test Item Value Reference Range Comments SODIUM (BEAKER) (test 128 meq/L 136-145 ahxk=645) POTASSIUM (BEAKER) (test 4.0 meq/L 3.5-5.1 itfy=162) CHLORIDE (BEAKER) (test 100 meq/L 98-107 whpy=836) CO2 (BEAKER) (test 21 meq/L 22-29 jxev=832) BLOOD UREA NITROGEN 40 mg/dL 7-21 (BEAKER) (test nhlg=611) CREATININE (BEAKER) (test 2.62 mg/dL 0.57-1.25 rjuu=261) GLUCOSE RANDOM (BEAKER) 351 mg/dL 70-105 (test nxte=688) CALCIUM (BEAKER) (test 8.0 mg/dL 8.4-10.2 ybwb=332) EGFR (BEAKER) (test 19 mL/min/1.73 sq m ESTIMATED GFR IS NOT fcku=7326) ACCURATE CREATININE CLEARANCE IN PREDICTING GLOMERULAR FILTRATION RATE. ESTIMATED GFR IS NOT APPLICABLE FOR DIALYSIS PATIENTS. [id number] 06:46:00 Test Item Value Reference Range Comments MAGNESIUM (BEAKER) (test ujgl=750) 1.9 mg/dL 1.6-2.6 BLOOD [id number] 20:01:00 Test Item Value Reference Range Comments CULTURE (BEAKER) (test yabn=0997) No growth in 5 days BLOOD [id number] 20:01:00 Test Item Value Reference Range Comments CULTURE (BEAKER) (test drqi=4198) No growth in 5 days POCT-GLUCOSE [id number] 08:39:00 Test Item Value Reference Range Comments POC-GLUCOSE METER (BEAKER) 300 mg/dL 70-110 TESTED AT [facility] [address] (test mfzz=6117) [facility] [address] POCT-GLUCOSE [id number] 08:39:00 Test Item Value Reference Range Comments POC-GLUCOSE METER (BEAKER) 330 mg/dL 70-110 Notified ALEXI ENNIS/TESTED AT [facility] (test gjfk=3650) [address] [facility] [address] COMPREHENSIVE METABOLIC [id number] 08:25:00 Test Item Value Reference Range Comments TOTAL PROTEIN (BEAKER) 4.9 gm/dL 6.0-8.3 (test elik=049) ALBUMIN (BEAKER) (test 3.3 g/dL 3.5-5.0 nlvz=0249) ALKALINE PHOSPHATASE 129 U/L 40-150 (BEAKER) (test qcvf=916) BILIRUBIN TOTAL (BEAKER) 1.2 mg/dL 0.2-1.2 (test mbqr=213) SODIUM (BEAKER) (test 130 meq/L 136-145 whpx=791) POTASSIUM (BEAKER) (test 4.5 meq/L 3.5-5.1 nupp=365) CHLORIDE (BEAKER) (test 102 meq/L 98-107 gxib=345) CO2 (BEAKER) (test 20 meq/L 22-29 uejp=229) BLOOD UREA NITROGEN 32 mg/dL 7-21 (BEAKER) (test qxai=725) CREATININE (BEAKER) (test 2.28 mg/dL 0.57-1.25 tjuu=707) GLUCOSE RANDOM (BEAKER) 341 mg/dL 70-105 (test vpcd=235) CALCIUM (BEAKER) (test 8.1 mg/dL 8.4-10.2 bmrd=594) AST (SGOT) (BEAKER) (test 851 U/L 5-34 utfz=323) ALT (SGPT) (BEAKER) (test 345 U/L 6-55 xrfr=431) EGFR (BEAKER) (test 22 mL/min/1.73 sq m ESTIMATED GFR IS NOT rtcg=8836) ACCURATE CREATININE CLEARANCE IN PREDICTING GLOMERULAR FILTRATION RATE. ESTIMATED GFR IS NOT APPLICABLE FOR DIALYSIS PATIENTS. [id number] 08:19:00 Test Item Value Reference Range Comments PHOSPHORUS (BEAKER) (test uurk=126) 2.3 mg/dL 2.3-4.7 [id number] 08:19:00 Test Item Value Reference Range Comments MAGNESIUM (BEAKER) (test kgao=921) 1.9 mg/dL 1.6-2.6 CALCIUM, [id number] 07:20:00 Test Item Value Reference Range Comments CALCIUM IONIZED (BEAKER) (test taaf=567) 0.98 mmol/L 1.12-1.27 PH, BLOOD (BEAKER) (test filt=3456) 7.42 CBC W/PLT COUNT & AUTO [id number] 06:36:00 Test Item Value Reference Range Comments WHITE BLOOD CELL COUNT (BEAKER) (test hwrh=000) 8.1 K/ L 3.5-10.5 RED BLOOD CELL COUNT (BEAKER) (test wuxq=947) 3.43 M/ L 3.93-5.22 HEMOGLOBIN (BEAKER) (test lccm=463) 9.2 GM/DL 11.2-15.7 HEMATOCRIT (BEAKER) (test ywlv=664) 29.3 % 34.1-44.9 MEAN CORPUSCULAR VOLUME (BEAKER) (test zbhp=152) 85.4 fL 79.4-94.8 MEAN CORPUSCULAR HEMOGLOBIN (BEAKER) (test 26.8 pg 25.6-32.2 cmlp=036) MEAN CORPUSCULAR HEMOGLOBIN CONC (BEAKER) (test 31.4 GM/DL 32.2-35.5 abcy=438) RED CELL DISTRIBUTION WIDTH (BEAKER) (test 14.6 % 11.7-14.4 ouft=386) PLATELET COUNT (BEAKER) (test lory=155) 132 K/CU MM 150-450 MEAN PLATELET VOLUME (BEAKER) (test yytu=758) 9.3 fL 9.4-12.3 NUCLEATED RED BLOOD CELLS (BEAKER) (test 0 /100 WBC 0-0 byxq=111) NEUTROPHILS RELATIVE PERCENT (BEAKER) (test 77 % owlx=209) LYMPHOCYTES RELATIVE PERCENT (BEAKER) (test 13 % zczd=797) MONOCYTES RELATIVE PERCENT (BEAKER) (test 8 % bbuf=165) EOSINOPHILS RELATIVE PERCENT (BEAKER) (test 2 % njud=209) BASOPHILS RELATIVE PERCENT (BEAKER) (test 1 % cvbt=308) NEUTROPHILS ABSOLUTE COUNT (BEAKER) (test 6.17 K/ L 1.56-6.13 dpcp=707) LYMPHOCYTES ABSOLUTE COUNT (BEAKER) (test 1.02 K/ L 1.18-3.74 pucs=483) MONOCYTES ABSOLUTE COUNT (BEAKER) (test 0.61 K/ L 0.24-0.36 daqz=178) EOSINOPHILS ABSOLUTE COUNT (BEAKER) (test 0.18 K/ L 0.04-0.36 ssdz=316) BASOPHILS ABSOLUTE COUNT (BEAKER) (test 0.05 K/ L 0.01-0.08 iegg=905) IMMATURE GRANULOCYTES-RELATIVE PERCENT (BEAKER) 1 % 0-1 (test qqdc=7741) BASIC METABOLIC [id number] 19:24:00 Test Item Value Reference Range Comments SODIUM (BEAKER) (test 132 meq/L 136-145 agmt=663) POTASSIUM (BEAKER) (test 4.8 meq/L 3.5-5.1 srgv=681) CHLORIDE (BEAKER) (test 103 meq/L 98-107 pfqr=424) CO2 (BEAKER) (test 20 meq/L 22-29 zota=569) BLOOD UREA NITROGEN 30 mg/dL 7-21 (BEAKER) (test bkhs=569) CREATININE (BEAKER) (test 1.85 mg/dL 0.57-1.25 vmle=544) GLUCOSE RANDOM (BEAKER) 297 mg/dL 70-105 (test yiin=517) CALCIUM (BEAKER) (test 8.7 mg/dL 8.4-10.2 kmzr=182) EGFR (BEAKER) (test 28 mL/min/1.73 sq m ESTIMATED GFR IS NOT czpz=5367) ACCURATE CREATININE CLEARANCE IN PREDICTING GLOMERULAR FILTRATION RATE. ESTIMATED GFR IS NOT APPLICABLE FOR DIALYSIS PATIENTS. Please draw [address] Quiroz at [phone] with results.Call [id number] 19:22:00 Test Item Value Reference Range Comments SODIUM (BEAKER) (test gbbw=322) 132 meq/L 136-145 POTASSIUM (BEAKER) (test hhfx=277) 4.8 meq/L 3.5-5.1 CHLORIDE (BEAKER) (test whzc=526) 103 meq/L 98-107 CO2 (BEAKER) (test qrdo=906) 20 meq/L 22-29 Please draw [address] Quiroz at [phone] with results.Call [id number] 18:11:00 Test Item Value Reference Range Comments POC-GLUCOSE METER (BEAKER) 314 mg/dL 70-110 TESTED AT [address] (test oarq=2614) [place] [id number] POCT-GLUCOSE [id number] 17:29:00 Test Item Value Reference Range Comments POC-GLUCOSE METER (BEAKER) 255 mg/dL 70-110 TESTED AT [address] (test jnbw=6131) [facility] [address] POCT-GLUCOSE [id number] 13:02:00 Test Item Value Reference Range Comments POC-GLUCOSE METER (BEAKER) 289 mg/dL 70-110 TESTED AT [address] (test pokg=7810) [place] [id number] BODY FLUID CULTURE + GRAM [id number] 12:08:00 Test Item Value Reference Range Comments CULTURE (BEAKER) (test alpn=6848) No growth GRAM STAIN RESULT (BEAKER) (test <1+ WBCs whcu=1580) GRAM STAIN RESULT (BEAKER) (test No organisms seen nfty=77223) SEAMUS [id number] 09:29:00Reason for exam:->cirrhosis/ portal hypertension , refractory [...] and a bleeding placement of a 10 [place] sheath from theright hepatic vein to the [...] 1 L of yellow fluid. The 5 [place] needle/catheter was inserted with real-time ultrasound guidance into the peritoneal cavity in the right lateral abdomen following sterile preparation. Following this, the sheath catheter was removed. CONCLUSION: Successful TIPS and paracentesis. Signed: Yulia Kaba MDReport Verified Date/Time: 02/20/2019 09:29:18 Reading Location : [place] [address] Angio Body Reading Room CALCIUM, [id number] 06:43:00 Test Item Value Reference Range Comments CALCIUM IONIZED (BEAKER) (test awlh=869) 1.02 mmol/L 1.12-1.27 PH, BLOOD (BEAKER) (test xodb=3477) 7.40 [id number] 06:12:00 Test Item Value Reference Range Comments PHOSPHORUS (BEAKER) (test sfph=843) 2.5 mg/dL 2.3-4.7 [id number] 06:12:00 Test Item Value Reference Range Comments MAGNESIUM (BEAKER) (test mvwf=744) 1.6 mg/dL 1.6-2.6 HEPATIC FUNCTION [id number] 06:12:00 Test Item Value Reference Range Comments TOTAL PROTEIN (BEAKER) (test khis=311) 5.3 gm/dL 6.0-8.3 ALBUMIN (BEAKER) (test vqzt=5198) 3.6 g/dL 3.5-5.0 BILIRUBIN TOTAL (BEAKER) (test qxgy=044) 1.2 mg/dL 0.2-1.2 BILIRUBIN DIRECT (BEAKER) (test zsqd=257) 0.6 mg/dL 0.1-0.5 ALKALINE PHOSPHATASE (BEAKER) (test xciv=653) 80 U/L 40-150 AST (SGOT) (BEAKER) (test xvvd=320) 99 U/L 5-34 ALT (SGPT) (BEAKER) (test kumn=008) 52 U/L 6-55 COMPREHENSIVE METABOLIC [id number] 06:12:00 Test Item Value Reference Range Comments TOTAL PROTEIN (BEAKER) 5.3 gm/dL 6.0-8.3 (test juzg=952) ALBUMIN (BEAKER) (test 3.6 g/dL 3.5-5.0 ygfe=0027) ALKALINE PHOSPHATASE 80 U/L 40-150 (BEAKER) (test uihd=887) BILIRUBIN TOTAL (BEAKER) 1.2 mg/dL 0.2-1.2 (test vzcy=791) SODIUM (BEAKER) (test 133 meq/L 136-145 wlzf=471) POTASSIUM (BEAKER) (test 5.4 meq/L 3.5-5.1 yexv=868) CHLORIDE (BEAKER) (test 104 meq/L 98-107 jnjb=341) CO2 (BEAKER) (test 22 meq/L 22-29 emtj=527) BLOOD UREA NITROGEN 27 mg/dL 7-21 (BEAKER) (test qphd=162) CREATININE (BEAKER) (test 1.58 mg/dL 0.57-1.25 olpd=240) GLUCOSE RANDOM (BEAKER) 300 mg/dL 70-105 (test mswj=462) CALCIUM (BEAKER) (test 8.4 mg/dL 8.4-10.2 zcgu=443) AST (SGOT) (BEAKER) (test 99 U/L 5-34 lkqv=500) ALT (SGPT) (BEAKER) (test 52 U/L 6-55 ppxu=313) EGFR (BEAKER) (test 33 mL/min/1.73 sq m ESTIMATED GFR IS NOT qlrl=8115) ACCURATE CREATININE CLEARANCE IN PREDICTING GLOMERULAR FILTRATION RATE. ESTIMATED GFR IS NOT APPLICABLE FOR DIALYSIS PATIENTS. PROTHROMBIN [id number] 05:57:00 Test Item Value Reference Range Comments PROTIME (BEAKER) (test nmat=219) 16.4 seconds 11.7-14.7 INR (BEAKER) (test mkef=267) 1.3 <=5.9 RECOMMENDED COUMADIN/WARFARIN INR THERAPY RANGESSTANDARD DOSE: 2.0 - 3.0 Includes: PROPHYLAXIS forvenous thrombosis, systemic embolization; TREATMENT for venous thrombosis and/or pulmonary embolus.HIGH RISK: Target INR is 2.5-3.5 for patients with mechanical heart valves.CBC W/PLT COUNT & AUTO [id number] 05:54:00 Test Item Value Reference Range Comments WHITE BLOOD CELL COUNT (BEAKER) (test vglu=419) 7.9 K/ L 3.5-10.5 RED BLOOD CELL COUNT (BEAKER) (test qqsj=217) 3.24 M/ L 3.93-5.22 HEMOGLOBIN (BEAKER) (test hhab=968) 8.9 GM/DL 11.2-15.7 HEMATOCRIT (BEAKER) (test ulhy=120) 28.0 % 34.1-44.9 MEAN CORPUSCULAR VOLUME (BEAKER) (test dtec=728) 86.4 fL 79.4-94.8 MEAN CORPUSCULAR HEMOGLOBIN (BEAKER) (test 27.5 pg 25.6-32.2 mebt=837) MEAN CORPUSCULAR HEMOGLOBIN CONC (BEAKER) (test 31.8 GM/DL 32.2-35.5 cuss=429) RED CELL DISTRIBUTION WIDTH (BEAKER) (test 14.4 % 11.7-14.4 gpfv=679) PLATELET COUNT (BEAKER) (test ffmp=571) 132 K/CU MM 150-450 MEAN PLATELET VOLUME (BEAKER) (test goyz=031) 9.3 fL 9.4-12.3 NUCLEATED RED BLOOD CELLS (BEAKER) (test 0 /100 WBC 0-0 tpsa=683) NEUTROPHILS RELATIVE PERCENT (BEAKER) (test 83 % mflk=393) LYMPHOCYTES RELATIVE PERCENT (BEAKER) (test 10 % rtmd=309) MONOCYTES RELATIVE PERCENT (BEAKER) (test 7 % qqkd=552) EOSINOPHILS RELATIVE PERCENT (BEAKER) (test 0 % qbef=210) BASOPHILS RELATIVE PERCENT (BEAKER) (test 0 % mjzm=652) NEUTROPHILS ABSOLUTE COUNT (BEAKER) (test 6.55 K/ L 1.56-6.13 jkcy=794) LYMPHOCYTES ABSOLUTE COUNT (BEAKER) (test 0.77 K/ L 1.18-3.74 dlfl=119) MONOCYTES ABSOLUTE COUNT (BEAKER) (test 0.55 K/ L 0.24-0.36 wkyf=248) EOSINOPHILS ABSOLUTE COUNT (BEAKER) (test 0.00 K/ L 0.04-0.36 ooiv=275) BASOPHILS ABSOLUTE COUNT (BEAKER) (test 0.02 K/ L 0.01-0.08 lqfr=871) IMMATURE GRANULOCYTES-RELATIVE PERCENT (BEAKER) 0 % 0-1 (test ufky=9522) POCT-GLUCOSE [id number] 19:01:00 Test Item Value Reference Range Comments POC-GLUCOSE METER (BEAKER) 301 mg/dL 70-110 TESTED AT [facility] [address] [place] [address] (test ohqh=0367) [facility] [address] [address], ABDOMEN, WITHOUT [id number] 12:33:00FINAL REPORT ABDOMINAL CT DATED 02/19/2019 CLINICAL [...] [place] Verified Date/Time: 02/19/2019 12:33:54 Reading Location: [address] Body Reading Room Electronicallysigned by: GIOVANNI HAAS M.D. on 02/19/2019 12:33 PMBODY FLUID CULTURE + GRAM [id number] 12:08:00 Test Item Value Reference Range Comments CULTURE (BEAKER) (test ssqd=7047) No growth GRAM STAIN RESULT (BEAKER) (test <1+ WBCs ybwu=1931) GRAM STAIN RESULT (BEAKER) (test No organisms seen myym=49744) POCT-GLUCOSE [id number] 09:38:00 Test Item Value Reference Range Comments POC-GLUCOSE METER (BEAKER) 274 mg/dL 70-110 TESTED AT [address] (test gtzq=1275) [facility] [address] CALCIUM, [id number] 06:56:00 Test Item Value Reference Range Comments CALCIUM IONIZED (BEAKER) (test seub=868) 1.05 mmol/L 1.12-1.27 PH, BLOOD (BEAKER) (test bapo=8791) 7.40 [id number] 06:22:00 Test Item Value Reference Range Comments PHOSPHORUS (BEAKER) (test xvzo=779) 2.3 mg/dL 2.3-4.7 [id number] 06:22:00 Test Item Value Reference Range Comments MAGNESIUM (BEAKER) (test gprf=507) 1.7 mg/dL 1.6-2.6 HEPATIC FUNCTION [id number] 06:22:00 Test Item Value Reference Range Comments TOTAL PROTEIN (BEAKER) (test omjj=263) 5.6 gm/dL 6.0-8.3 ALBUMIN (BEAKER) (test obns=0923) 3.4 g/dL 3.5-5.0 BILIRUBIN TOTAL (BEAKER) (test uiei=830) 0.9 mg/dL 0.2-1.2 BILIRUBIN DIRECT (BEAKER) (test lknd=453) 0.4 mg/dL 0.1-0.5 ALKALINE PHOSPHATASE (BEAKER) (test tsvo=448) 121 U/L 40-150 AST (SGOT) (BEAKER) (test lvpg=940) 28 U/L 5-34 ALT (SGPT) (BEAKER) (test vvtq=406) 12 U/L 6-55 COMPREHENSIVE METABOLIC [id number] 06:22:00 Test Item Value Reference Range Comments TOTAL PROTEIN (BEAKER) 5.6 gm/dL 6.0-8.3 (test peuy=982) ALBUMIN (BEAKER) (test 3.4 g/dL 3.5-5.0 sbbn=6670) ALKALINE PHOSPHATASE 121 U/L 40-150 (BEAKER) (test ecyi=025) BILIRUBIN TOTAL (BEAKER) 0.9 mg/dL 0.2-1.2 (test hfyg=346) SODIUM (BEAKER) (test 135 meq/L 136-145 rrya=914) POTASSIUM (BEAKER) (test 4.5 meq/L 3.5-5.1 qihj=327) CHLORIDE (BEAKER) (test 105 meq/L 98-107 lfow=468) CO2 (BEAKER) (test 22 meq/L 22-29 izyo=782) BLOOD UREA NITROGEN 29 mg/dL 7-21 (BEAKER) (test awsf=336) CREATININE (BEAKER) (test 1.38 mg/dL 0.57-1.25 yevw=221) GLUCOSE RANDOM (BEAKER) 313 mg/dL 70-105 (test hpew=977) CALCIUM (BEAKER) (test 8.7 mg/dL 8.4-10.2 rnpv=613) AST (SGOT) (BEAKER) (test 28 U/L 5-34 pjjt=337) ALT (SGPT) (BEAKER) (test 12 U/L 6-55 csjp=812) EGFR (BEAKER) (test 39 mL/min/1.73 sq m ESTIMATED GFR IS NOT xhfm=7954) ACCURATE CREATININE CLEARANCE IN PREDICTING GLOMERULAR FILTRATION RATE. ESTIMATED GFR IS NOT APPLICABLE FOR DIALYSIS PATIENTS. PROTHROMBIN [id number] 06:15:00 Test Item Value Reference Range Comments PROTIME (BEAKER) (test oyil=042) 14.0 seconds 11.7-14.7 INR (BEAKER) (test dooq=658) 1.1 <=5.9 RECOMMENDED COUMADIN/WARFARIN INR THERAPY RANGESSTANDARD DOSE: 2.0 - 3.0 Includes: PROPHYLAXIS forvenous thrombosis, systemic embolization; TREATMENT for venous thrombosis and/or pulmonary embolus.HIGH RISK: Target INR is 2.5-3.5 for patients with mechanical heart valves.CBC W/PLT COUNT & AUTO [id number] 05:57:00 Test Item Value Reference Range Comments WHITE BLOOD CELL COUNT (BEAKER) (test mmni=698) 6.9 K/ L 3.5-10.5 RED BLOOD CELL COUNT (BEAKER) (test chsf=422) 3.83 M/ L 3.93-5.22 HEMOGLOBIN (BEAKER) (test ppyw=010) 10.5 GM/DL 11.2-15.7 HEMATOCRIT (BEAKER) (test bfid=774) 33.1 % 34.1-44.9 MEAN CORPUSCULAR VOLUME (BEAKER) (test odpk=417) 86.4 fL 79.4-94.8 MEAN CORPUSCULAR HEMOGLOBIN (BEAKER) (test 27.4 pg 25.6-32.2 xzio=028) MEAN CORPUSCULAR HEMOGLOBIN CONC (BEAKER) (test 31.7 GM/DL 32.2-35.5 pxvf=752) RED CELL DISTRIBUTION WIDTH (BEAKER) (test 14.4 % 11.7-14.4 obyv=371) PLATELET COUNT (BEAKER) (test yrnp=105) 175 K/CU MM 150-450 MEAN PLATELET VOLUME (BEAKER) (test vbiq=225) 9.9 fL 9.4-12.3 NUCLEATED RED BLOOD CELLS (BEAKER) (test 0 /100 WBC 0-0 tebt=256) NEUTROPHILS RELATIVE PERCENT (BEAKER) (test 73 % ronh=214) LYMPHOCYTES RELATIVE PERCENT (BEAKER) (test 16 % beaa=593) MONOCYTES RELATIVE PERCENT (BEAKER) (test 7 % obfh=096) EOSINOPHILS RELATIVE PERCENT (BEAKER) (test 4 % ewoh=544) BASOPHILS RELATIVE PERCENT (BEAKER) (test 1 % hdfz=658) NEUTROPHILS ABSOLUTE COUNT (BEAKER) (test 4.99 K/ L 1.56-6.13 wxdw=906) LYMPHOCYTES ABSOLUTE COUNT (BEAKER) (test 1.09 K/ L 1.18-3.74 zezg=590) MONOCYTES ABSOLUTE COUNT (BEAKER) (test 0.50 K/ L 0.24-0.36 txsq=941) EOSINOPHILS ABSOLUTE COUNT (BEAKER) (test 0.25 K/ L 0.04-0.36 lbue=424) BASOPHILS ABSOLUTE COUNT (BEAKER) (test 0.04 K/ L 0.01-0.08 uout=307) IMMATURE GRANULOCYTES-RELATIVE PERCENT (BEAKER) 0 % 0-1 (test wzjw=8712) POCT-GLUCOSE [id number] 23:05:00 Test Item Value Reference Range Comments POC-GLUCOSE METER (BEAKER) 412 mg/dL 70-110 Will Repeat Test/TESTED AT (test ywuu=2198) [address] [address] POCT-GLUCOSE [id number] 22:12:00 Test Item Value Reference Range Comments POC-GLUCOSE METER (BEAKER) 371 mg/dL 70-110 TESTED AT [address] (test ywyc=8117) [facility] [address] BODY FLUID CELL COUNT WITH [id number] 13:06:00 Test Item Value Reference Range Comments APPEARANCE FLUID (BEAKER) (test aosd=960) Slightly Hazy Clear COLOR FLUID (BEAKER) (test zhiq=047) Yellow Colorless, Straw RBC FLUID (BEAKER) (test znuj=467) 252 /cu mm <=1 ADJUSTED WBC FLUID (BEAKER) (test glpc=8183) 112 /cu mm <=5 LINING CELLS (BEAKER) (test itcm=5886) 10 /cu mm <=1 NEUTROPHILS FLUID (BEAKER) (test cfgw=4921) 8 % LYMPHS FLUID (BEAKER) (test hkmx=692) 40 % MONO/MACROPHAGE FLUID (BEAKER) (test 43 % oywl=263) EOSINOPHILS FLUID (BEAKER) (test nmuf=105) 0 % BASO FLUID (BEAKER) (test rjsm=775) 0 % CONTAINER BODY FLUID (BEAKER) (test EDTA Tube rxze=0898) U/S, [id number] 10:21:00Limit 8 LReason for exam:->ascites, limit 8 [...] skin and deep soft tissues. A 5 [place] one-step catheter was inserted and removed from the peritoneal space and approximately 8.0 liters of clear yellow fluid was aspirated from the abdomen. There were no immediate complications. Impression: Successful ultrasound guided paracentesis with aspiration of 8.0 liters of fluid. Signed: Akil Chung MDReport Verified Date/ Time: 02/18/2019 10:21:08 Reading Location: [address] Ultrasound Reading Room [id number] 07:08:00 Test Item Value Reference Range Comments MAGNESIUM (BEAKER) (test mpss=554) 1.7 mg/dL 1.6-2.6 HEPATIC FUNCTION [id number] 07:08:00 Test Item Value Reference Range Comments TOTAL PROTEIN (BEAKER) (test yfsm=967) 5.4 gm/dL 6.0-8.3 ALBUMIN (BEAKER) (test auoa=2107) 3.2 g/dL 3.5-5.0 BILIRUBIN TOTAL (BEAKER) (test ezgy=884) 0.8 mg/dL 0.2-1.2 BILIRUBIN DIRECT (BEAKER) (test kxan=065) 0.4 mg/dL 0.1-0.5 ALKALINE PHOSPHATASE (BEAKER) (test oywb=633) 104 U/L 40-150 AST (SGOT) (BEAKER) (test vcfv=054) 20 U/L 5-34 ALT (SGPT) (BEAKER) (test kgdl=658) 10 U/L 6-55 COMPREHENSIVE METABOLIC [id number] 07:08:00 Test Item Value Reference Range Comments TOTAL PROTEIN (BEAKER) 5.4 gm/dL 6.0-8.3 (test phdu=194) ALBUMIN (BEAKER) (test 3.2 g/dL 3.5-5.0 qeqp=7968) ALKALINE PHOSPHATASE 104 U/L 40-150 (BEAKER) (test wrrq=841) BILIRUBIN TOTAL (BEAKER) 0.8 mg/dL 0.2-1.2 (test qrjw=870) SODIUM (BEAKER) (test 136 meq/L 136-145 ynhs=035) POTASSIUM (BEAKER) (test 4.3 meq/L 3.5-5.1 xwcu=427) CHLORIDE (BEAKER) (test 108 meq/L 98-107 ovsz=325) CO2 (BEAKER) (test 22 meq/L 22-29 ydgq=389) BLOOD UREA NITROGEN 31 mg/dL 7-21 (BEAKER) (test ysby=815) CREATININE (BEAKER) (test 1.26 mg/dL 0.57-1.25 drwl=645) GLUCOSE RANDOM (BEAKER) 262 mg/dL 70-105 (test obbc=816) CALCIUM (BEAKER) (test 8.5 mg/dL 8.4-10.2 xiyu=354) AST (SGOT) (BEAKER) (test 20 U/L 5-34 lzwb=258) ALT (SGPT) (BEAKER) (test 10 U/L 6-55 wjsa=020) EGFR (BEAKER) (test 43 mL/min/1.73 sq m ESTIMATED GFR IS NOT bxhm=1049) ACCURATE CREATININE CLEARANCE IN PREDICTING GLOMERULAR FILTRATION RATE. ESTIMATED GFR IS NOT APPLICABLE FOR DIALYSIS PATIENTS. [id number] 07:07:00 Test Item Value Reference Range Comments PHOSPHORUS (BEAKER) (test wmtm=568) 2.7 mg/dL 2.3-4.7 POCT-GLUCOSE [id number] 06:31:00 Test Item Value Reference Range Comments POC-GLUCOSE METER (BEAKER) 249 mg/dL 70-110 TESTED AT [facility] [address] [facility] (test cfjd=4767) [facility] [address] URINALYSIS W/ [id number] 06:17:00 Test Item Value Reference Range Comments COLOR (BEAKER) (test iinm=020) Yellow CLARITY (BEAKER) (test dxdk=801) Clear SPECIFIC GRAVITY UA (BEAKER) (test tqaz=590) 1.013 1.001-1.035 PH UA (BEAKER) (test ypwn=959) 5.0 5.0-8.0 PROTEIN UA (BEAKER) (test gres=977) Negative Negative GLUCOSE UA (BEAKER) (test qgse=120) 100 mg/dL Negative KETONES UA (BEAKER) (test iknz=304) Negative Negative BILIRUBIN UA (BEAKER) (test nrcq=550) Negative Negative BLOOD UA (BEAKER) (test yaum=910) Negative Negative NITRITE UA (BEAKER) (test zaox=255) Negative Negative LEUKOCYTE ESTERASE UA (BEAKER) (test epzp=308) Large Negative UROBILINOGEN UA (BEAKER) (test zfvn=667) 0.2 mg/dL 0.2-1.0 RBC UA (BEAKER) (test yhgb=773) 2 /HPF WBC UA (BEAKER) (test xyoa=208) 24 /HPF SQUAMOUS EPITHELIAL (BEAKER) (test knnv=524) 14 /HPF HYALINE CASTS (BEAKER) (test niey=174) 3 /LPF SOURCE(BEAKER) (test kzlb=1205) Urine, Voided [id number] 05:53:00 Test Item Value Reference Range Comments PARTIAL THROMBOPLASTIN TIME (BEAKER) (test 20.1 seconds 22.5-36.0 yobs=364) CALCIUM, [id number] 05:50:00 Test Item Value Reference Range Comments CALCIUM IONIZED (BEAKER) (test dtzd=412) 1.00 mmol/L 1.12-1.27 PH, BLOOD (BEAKER) (test ycqj=9506) 7.43 PROTHROMBIN [id number] 04:54:00 Test Item Value Reference Range Comments PROTIME (BEAKER) (test tyhp=769) 13.8 seconds 11.7-14.7 INR (BEAKER) (test gnvj=532) 1.0 <=5.9 RECOMMENDED COUMADIN/WARFARIN INR THERAPY RANGESSTANDARD DOSE: 2.0 - 3.0 Includes: PROPHYLAXIS forvenous thrombosis, systemic embolization; TREATMENT for venous thrombosis and/or pulmonary embolus.HIGH RISK: Target INR is 2.5-3.5 for patients with mechanical heart valves.CREATININE, RANDOM [id number] 04: 48:00 Test Item Value Reference Range Comments CREATININE URINE (BEAKER) (test bwau=583) 115.9 mg/dL Reference Range: No NormalsPROTEIN, RANDOM [id number] 04:48:00 Test Item Value Reference Range Comments PROTEIN, URINE (BEAKER) (test tulj=7653) 12 mg/dL 0-14 CBC W/PLT COUNT & AUTO [id number] 04:30:00 Test Item Value Reference Range Comments WHITE BLOOD CELL COUNT (BEAKER) (test xkip=610) 5.2 K/ L 3.5-10.5 RED BLOOD CELL COUNT (BEAKER) (test cghy=275) 3.58 M/ L 3.93-5.22 HEMOGLOBIN (BEAKER) (test maxb=248) 9.8 GM/DL 11.2-15.7 HEMATOCRIT (BEAKER) (test qkfn=585) 31.6 % 34.1-44.9 MEAN CORPUSCULAR VOLUME (BEAKER) (test gflw=232) 88.3 fL 79.4-94.8 MEAN CORPUSCULAR HEMOGLOBIN (BEAKER) (test 27.4 pg 25.6-32.2 gcsp=752) MEAN CORPUSCULAR HEMOGLOBIN CONC (BEAKER) (test 31.0 GM/DL 32.2-35.5 hnhv=677) RED CELL DISTRIBUTION WIDTH (BEAKER) (test 14.4 % 11.7-14.4 hjrs=887) PLATELET COUNT (BEAKER) (test gyio=596) 173 K/CU MM 150-450 MEAN PLATELET VOLUME (BEAKER) (test vftf=467) 9.6 fL 9.4-12.3 NUCLEATED RED BLOOD CELLS (BEAKER) (test 0 /100 WBC 0-0 assi=023) NEUTROPHILS RELATIVE PERCENT (BEAKER) (test 67 % xpws=105) LYMPHOCYTES RELATIVE PERCENT (BEAKER) (test 19 % dzdr=584) MONOCYTES RELATIVE PERCENT (BEAKER) (test 8 % tpfk=291) EOSINOPHILS RELATIVE PERCENT (BEAKER) (test 5 % vzrp=173) BASOPHILS RELATIVE PERCENT (BEAKER) (test 1 % qfxu=448) NEUTROPHILS ABSOLUTE COUNT (BEAKER) (test 3.43 K/ L 1.56-6.13 gsay=765) LYMPHOCYTES ABSOLUTE COUNT (BEAKER) (test 0.98 K/ L 1.18-3.74 lapf=632) MONOCYTES ABSOLUTE COUNT (BEAKER) (test 0.42 K/ L 0.24-0.36 soaj=151) EOSINOPHILS ABSOLUTE COUNT (BEAKER) (test 0.26 K/ L 0.04-0.36 rqts=462) BASOPHILS ABSOLUTE COUNT (BEAKER) (test 0.04 K/ L 0.01-0.08 gomk=809) IMMATURE GRANULOCYTES-RELATIVE PERCENT (BEAKER) 0 % 0-1 (test ymaq=4326) U/S, ABDOMINAL, WITH [id number] 03:48:00Reason for exam:->TIPS workup , assess for [...] MDReport Verified Date/Time: 02/18/2019 03:48:21 Reading Location: [address] Neuro Reading Room Electronically signed by: Se SCHNEIDER 2018 03:48 AMPOCT-GLUCOSE [id number] 00:28:00 Test Item Value Reference Range Comments POC-GLUCOSE METER (BEAKER) 330 mg/dL 70-110 Will Repeat Test/TESTED AT (test wfml=4166) [facility] [address] [facility] [address] BODY FLUID CELL COUNT WITH [id number] 18:02:00 Test Item Value Reference Range Comments APPEARANCE FLUID (BEAKER) (test rrvk=874) Clear Clear COLOR FLUID (BEAKER) (test fvpl=080) Yellow Colorless, Straw RBC FLUID (BEAKER) (test irhm=268) 20 /cu mm <=1 ADJUSTED WBC FLUID (BEAKER) (test ryda=6524) 50 /cu mm <=5 LINING CELLS (BEAKER) (test qncl=0233) 0 /cu mm <=1 NEUTROPHILS FLUID (BEAKER) (test erjy=0005) 1 % LYMPHS FLUID (BEAKER) (test xcjb=627) 38 % MONO/MACROPHAGE FLUID (BEAKER) (test eylh=029) 61 % EOSINOPHILS FLUID (BEAKER) (test kqfu=001) 0 % BASO FLUID (BEAKER) (test qncz=524) 0 % CONTAINER BODY FLUID (BEAKER) (test mchk=0464) EDTA Tube U/S, [id number] 16:30:00limit volume to 8 LReason for exam:-> [...] MDReport Verified Date/Time: 02/17 16:30:42 Reading Location: [address] Ultrasound Reading Room POCT-GLUCOSE [id number] 09:48:00 Test Item Value Reference Range Comments POC-GLUCOSE METER (BEAKER) 198 mg/dL 70-110 TESTED AT [address] (test avzs=1714) [facility] [address] BASIC METABOLIC [id number] 06:30:00 Test Item Value Reference Range Comments SODIUM (BEAKER) (test 137 meq/L 136-145 exxl=099) POTASSIUM (BEAKER) (test 4.5 meq/L 3.5-5.1 xboi=667) CHLORIDE (BEAKER) (test 107 meq/L 98-107 gucd=824) CO2 (BEAKER) (test 24 meq/L 22-29 smnq=796) BLOOD UREA NITROGEN 41 mg/dL 7-21 (BEAKER) (test ihfz=560) CREATININE (BEAKER) (test 1.48 mg/dL 0.57-1.25 lwao=966) GLUCOSE RANDOM (BEAKER) 200 mg/dL 70-105 (test vbmr=392) CALCIUM (BEAKER) (test 8.9 mg/dL 8.4-10.2 pvsv=566) EGFR (BEAKER) (test 36 mL/min/1.73 sq m ESTIMATED GFR IS NOT nwga=3121) ACCURATE CREATININE CLEARANCE IN PREDICTING GLOMERULAR FILTRATION RATE. ESTIMATED GFR IS NOT APPLICABLE FOR DIALYSIS PATIENTS. POCT-GLUCOSE [id number] 17:31:00 Test Item Value Reference Range Comments POC-GLUCOSE METER (BEAKER) 165 mg/dL 70-110 TESTED AT [facility] [address] [facility] (test mtln=9234) [facility] [address] U/S, [id number] 16:00:00Reason for exam:->ascites SOBFINAL REPORT PROCEDURE: Ultrasound-guided paracentesis. INDICATION: Ascites. DESCRIPTION: This paracentesis was performed by Lesley Parnell under the direct supervision of Thomas Hendrix. After obtaining informed written consent, ultrasound scan of the abdomen identified ascites in the right lower quadrant. The overlying skin was prepped and draped in the usual, sterile fashion andlocal 2% lidocaine anesthesia was administered. A 5 [place] catheter was advanced into the peritonealcavity and 6000 mL of clear yellow fluid was removed. The catheter was removed without immediate complication. Samples were sent for analysis. IMPRESSION: Uncomplicated ultrasound-guided paracentesis with 6000 mL fluid removed. Signed: Thomas Hendrix [facility] Verified Date/Time: 16:00:46 Reading Location: [address] Ultrasound Reading Room BODY FLUID CELL COUNT WITH [id number] 15:52:00 Test Item Value Reference Range Comments APPEARANCE FLUID (BEAKER) (test xwhw=507) Clear Clear COLOR FLUID (BEAKER) (test rczz=406) Yellow Colorless, Straw RBC FLUID (BEAKER) (test mpiz=322) 10 /cu mm <=1 ADJUSTED WBC FLUID (BEAKER) (test qjrz=6711) 80 /cu mm <=5 LINING CELLS (BEAKER) (test wths=4708) 0 /cu mm <=1 NEUTROPHILS FLUID (BEAKER) (test tdwe=4487) 5 % LYMPHS FLUID (BEAKER) (test nope=224) 35 % MONO/MACROPHAGE FLUID (BEAKER) (test lsjh=652) 59 % EOSINOPHILS FLUID (BEAKER) (test axni=244) 1 % BASO FLUID (BEAKER) (test etmm=948) 0 % CONTAINER BODY FLUID (BEAKER) (test blva=4103) EDTA Tube BASIC METABOLIC [id number] 07:28:00 Test Item Value Reference Range Comments SODIUM (BEAKER) (test 134 meq/L 136-145 mocv=979) POTASSIUM (BEAKER) (test 5.0 meq/L 3.5-5.1 uttm=267) CHLORIDE (BEAKER) (test 107 meq/L 98-107 gohm=507) CO2 (BEAKER) (test 22 meq/L 22-29 aqbv=109) BLOOD UREA NITROGEN 46 mg/dL 7-21 (BEAKER) (test nbhe=642) CREATININE (BEAKER) (test 1.61 mg/dL 0.57-1.25 zjzk=331) GLUCOSE RANDOM (BEAKER) 220 mg/dL 70-105 (test zgkb=286) CALCIUM (BEAKER) (test 9.0 mg/dL 8.4-10.2 twdl=263) EGFR (BEAKER) (test 33 mL/min/1.73 sq m ESTIMATED GFR IS NOT gnsk=8176) ACCURATE CREATININE CLEARANCE IN PREDICTING GLOMERULAR FILTRATION RATE. ESTIMATED GFR IS NOT APPLICABLE FOR DIALYSIS PATIENTS. HEPATIC FUNCTION [id number] 07:28:00 Test Item Value Reference Range Comments TOTAL PROTEIN (BEAKER) (test qvqn=679) 5.9 gm/dL 6.0-8.3 ALBUMIN (BEAKER) (test hegf=4741) 3.0 g/dL 3.5-5.0 BILIRUBIN TOTAL (BEAKER) (test khgt=104) 0.6 mg/dL 0.2-1.2 BILIRUBIN DIRECT (BEAKER) (test kdcn=554) 0.3 mg/dL 0.1-0.5 ALKALINE PHOSPHATASE (BEAKER) (test qvjj=165) 154 U/L 40-150 AST (SGOT) (BEAKER) (test rgvz=817) 22 U/L 5-34 ALT (SGPT) (BEAKER) (test svih=182) 12 U/L 6-55 [id number] 07:27:00 Test Item Value Reference Range Comments MAGNESIUM (BEAKER) (test ofbt=996) 2.2 mg/dL 1.6-2.6 CBC W/PLT COUNT & AUTO [id number] 07:06:00 Test Item Value Reference Range Comments WHITE BLOOD CELL COUNT (BEAKER) (test uidh=845) 6.2 K/ L 3.5-10.5 RED BLOOD CELL COUNT (BEAKER) (test vnkh=599) 3.62 M/ L 3.93-5.22 HEMOGLOBIN (BEAKER) (test yryq=623) 9.8 GM/DL 11.2-15.7 HEMATOCRIT (BEAKER) (test uhij=729) 31.4 % 34.1-44.9 MEAN CORPUSCULAR VOLUME (BEAKER) (test zcvx=554) 86.7 fL 79.4-94.8 MEAN CORPUSCULAR HEMOGLOBIN (BEAKER) (test 27.1 pg 25.6-32.2 iexa=931) MEAN CORPUSCULAR HEMOGLOBIN CONC (BEAKER) (test 31.2 GM/DL 32.2-35.5 ijnl=324) RED CELL DISTRIBUTION WIDTH (BEAKER) (test 14.5 % 11.7-14.4 wcjq=991) PLATELET COUNT (BEAKER) (test nbos=105) 198 K/CU MM 150-450 MEAN PLATELET VOLUME (BEAKER) (test geks=756) 9.8 fL 9.4-12.3 NUCLEATED RED BLOOD CELLS (BEAKER) (test 0 /100 WBC 0-0 yjog=464) NEUTROPHILS RELATIVE PERCENT (BEAKER) (test 64 % brvc=411) LYMPHOCYTES RELATIVE PERCENT (BEAKER) (test 22 % twbf=751) MONOCYTES RELATIVE PERCENT (BEAKER) (test 9 % jaib=203) EOSINOPHILS RELATIVE PERCENT (BEAKER) (test 5 % euyj=391) BASOPHILS RELATIVE PERCENT (BEAKER) (test 1 % wisf=528) NEUTROPHILS ABSOLUTE COUNT (BEAKER) (test 3.93 K/ L 1.56-6.13 kwxq=776) LYMPHOCYTES ABSOLUTE COUNT (BEAKER) (test 1.35 K/ L 1.18-3.74 uiex=134) MONOCYTES ABSOLUTE COUNT (BEAKER) (test 0.53 K/ L 0.24-0.36 yujq=338) EOSINOPHILS ABSOLUTE COUNT (BEAKER) (test 0.28 K/ L 0.04-0.36 pzbt=115) BASOPHILS ABSOLUTE COUNT (BEAKER) (test 0.05 K/ L 0.01-0.08 hvbe=145) IMMATURE GRANULOCYTES-RELATIVE PERCENT (BEAKER) 1 % 0-1 (test kprz=4566) [id number] 06:49:00 Test Item Value Reference Range Comments PROTIME (BEAKER) (test yhec=048) 13.4 seconds 11.7-14.7 INR (BEAKER) (test tzbd=646) 1.0 <=5.9 PARTIAL THROMBOPLASTIN TIME (BEAKER) (test 30.9 seconds 22.5-36.0 mxnh=091) RECOMMENDED COUMADIN/WARFARIN INR THERAPY RANGESSTANDARD DOSE: 2.0 - 3.0 Includes: PROPHYLAXIS forvenous thrombosis, systemic embolization; TREATMENT for venous thrombosis and/or pulmonary embolus.HIGH RISK: Target INR is 2.5-3.5 for patients with mechanical heart valves.URINALYSIS W/ REFLEX URINE [id number] 05:32:00 Test Item Value Reference Range Comments COLOR (BEAKER) (test olud=724) Yellow CLARITY (BEAKER) (test gyyj=898) Hazy SPECIFIC GRAVITY UA (BEAKER) (test xfhe=972) 1.021 1.001-1.035 PH UA (BEAKER) (test xthq=468) 5.5 5.0-8.0 PROTEIN UA (BEAKER) (test zqhm=811) 30 mg/dL Negative GLUCOSE UA (BEAKER) (test xsvj=892) Negative Negative KETONES UA (BEAKER) (test ultu=718) Negative Negative BILIRUBIN UA (BEAKER) (test fihs=824) Negative Negative BLOOD UA (BEAKER) (test zvij=877) Negative Negative NITRITE UA (BEAKER) (test vnwf=862) Negative Negative LEUKOCYTE ESTERASE UA (BEAKER) (test sdfh=606) Large Negative UROBILINOGEN UA (BEAKER) (test dmby=110) 2.0 mg/dL 0.2-1.0 RBC UA (BEAKER) (test ogns=495) 7 /HPF WBC UA (BEAKER) (test ilge=846) 7 /HPF MUCUS (BEAKER) (test aqll=3216) Rare SQUAMOUS EPITHELIAL (BEAKER) (test lazn=483) 6 /HPF HYALINE CASTS (BEAKER) (test aobi=989) 40 /LPF SOURCE(BEAKER) (test wctc=5409) POCT-GLUCOSE [id number] 05:00:00 Test Item Value Reference Range Comments POC-GLUCOSE METER (BEAKER) 227 mg/dL 70-110 TESTED AT [facility] [address] [facility] (test kdmz=5114) [facility] [address] ALPHA FETOPROTEIN (AFP), TUMOR [id number] 15:55:00 Test Item Value Reference Range Comments ALPHA-FETOPROTEIN (BEAKER) (test fuxo=4845) 3.4 ng/mL <10.0 BASIC METABOLIC [id number] 15:40:00 Test Item Value Reference Range Comments SODIUM (BEAKER) (test 133 meq/L 136-145 fnep=784) POTASSIUM (BEAKER) (test 4.8 meq/L 3.5-5.1 nnsj=204) CHLORIDE (BEAKER) (test 101 meq/L 98-107 vtev=551) CO2 (BEAKER) (test 23 meq/L 22-29 qopp=523) BLOOD UREA NITROGEN 37 mg/dL 7-21 (BEAKER) (test ueyk=575) CREATININE (BEAKER) (test 2.17 mg/dL 0.57-1.25 wnha=436) GLUCOSE RANDOM (BEAKER) 191 mg/dL 70-105 (test oytq=977) CALCIUM (BEAKER) (test 9.2 mg/dL 8.4-10.2 igkm=556) EGFR (BEAKER) (test 23 mL/min/1.73 sq m ESTIMATED GFR IS NOT ylnl=3150) ACCURATE CREATININE CLEARANCE IN PREDICTING GLOMERULAR FILTRATION RATE. ESTIMATED GFR IS NOT APPLICABLE FOR DIALYSIS PATIENTS. HEPATIC FUNCTION [id number] 15:38:00 Test Item Value Reference Range Comments TOTAL PROTEIN (BEAKER) (test tahm=764) 6.9 gm/dL 6.0-8.3 ALBUMIN (BEAKER) (test kjtv=7577) 3.7 g/dL 3.5-5.0 BILIRUBIN TOTAL (BEAKER) (test ghes=072) 0.8 mg/dL 0.2-1.2 BILIRUBIN DIRECT (BEAKER) (test oitr=263) 0.3 mg/dL 0.1-0.5 ALKALINE PHOSPHATASE (BEAKER) (test lujd=505) 95 U/L 40-150 AST (SGOT) (BEAKER) (test hhlk=976) 24 U/L 5-34 ALT (SGPT) (BEAKER) (test ckpx=641) 14 U/L 6-55 PROTHROMBIN [id number] 15:29:00 Test Item Value Reference Range Comments PROTIME (BEAKER) (test czwz=687) 12.8 seconds 11.7-14.7 INR (BEAKER) (test oudm=454) 1.0 <=5.9 RECOMMENDED COUMADIN/WARFARIN INR THERAPY RANGESSTANDARD DOSE: 2.0 - 3.0 Includes: PROPHYLAXIS forvenous thrombosis, systemic embolization; TREATMENT for venous thrombosis and/or pulmonary embolus.HIGH RISK: Target INR is 2.5-3.5 for patients with mechanical heart valves.CBC W/PLT COUNT & AUTO [id number] 15:17:00 Test Item Value Reference Range Comments WHITE BLOOD CELL COUNT (BEAKER) (test kmuy=365) 7.8 K/ L 3.5-10.5 RED BLOOD CELL COUNT (BEAKER) (test omml=667) 4.49 M/ L 3.93-5.22 HEMOGLOBIN (BEAKER) (test ufhp=827) 12.4 GM/DL 11.2-15.7 HEMATOCRIT (BEAKER) (test dqlk=058) 39.1 % 34.1-44.9 MEAN CORPUSCULAR VOLUME (BEAKER) (test pdux=757) 87.1 fL 79.4-94.8 MEAN CORPUSCULAR HEMOGLOBIN (BEAKER) (test 27.6 pg 25.6-32.2 tzll=062) MEAN CORPUSCULAR HEMOGLOBIN CONC (BEAKER) (test 31.7 GM/DL 32.2-35.5 uqdx=803) RED CELL DISTRIBUTION WIDTH (BEAKER) (test 14.0 % 11.7-14.4 hkos=393) PLATELET COUNT (BEAKER) (test uely=170) 196 K/CU MM 150-450 MEAN PLATELET VOLUME (BEAKER) (test zylq=284) 9.9 fL 9.4-12.3 NUCLEATED RED BLOOD CELLS (BEAKER) (test 0 /100 WBC 0-0 vusq=499) NEUTROPHILS RELATIVE PERCENT (BEAKER) (test 72 % blsf=269) LYMPHOCYTES RELATIVE PERCENT (BEAKER) (test 18 % ndwf=113) MONOCYTES RELATIVE PERCENT (BEAKER) (test 6 % vwfn=810) EOSINOPHILS RELATIVE PERCENT (BEAKER) (test 4 % epxg=101) BASOPHILS RELATIVE PERCENT (BEAKER) (test 1 % suks=642) NEUTROPHILS ABSOLUTE COUNT (BEAKER) (test 5.62 K/ L 1.56-6.13 qzip=730) LYMPHOCYTES ABSOLUTE COUNT (BEAKER) (test 1.37 K/ L 1.18-3.74 ohpr=527) MONOCYTES ABSOLUTE COUNT (BEAKER) (test 0.43 K/ L 0.24-0.36 pobp=450) EOSINOPHILS ABSOLUTE COUNT (BEAKER) (test 0.28 K/ L 0.04-0.36 zirs=613) BASOPHILS ABSOLUTE COUNT (BEAKER) (test 0.07 K/ L 0.01-0.08 kkux=894) IMMATURE GRANULOCYTES-RELATIVE PERCENT (BEAKER) 0 % 0-1 (test ztth=1029) ANTI-MITOCHONDRIAL AB, REFLEX TO [id number] 08:36:00 Test Item Value Reference Range Comments SCAN RESULT (test [id number]=[id number]) OSMOLALITY, [id number] 10:30:00 Test Item Value Reference Range Comments OSMOLALITY, SERUM (BEAKER) (test rvoi=449) 301 mOsm/kg 275-295 POCT-GLUCOSE [id number] 08:26:00 Test Item Value Reference Range Comments POC-GLUCOSE METER (BEAKER) 243 mg/dL 70-110 TESTED AT [address] (test lvjd=6600) [facility] [address] COMPREHENSIVE METABOLIC [id number] 08:05:00 Test Item Value Reference Range Comments TOTAL PROTEIN (BEAKER) 5.5 gm/dL 6.0-8.3 (test umkc=775) ALBUMIN (BEAKER) (test 3.2 g/dL 3.5-5.0 yscu=4952) ALKALINE PHOSPHATASE 75 U/L 40-150 (BEAKER) (test gmar=397) BILIRUBIN TOTAL (BEAKER) 0.9 mg/dL 0.2-1.2 (test udld=167) SODIUM (BEAKER) (test 132 meq/L 136-145 czhk=213) POTASSIUM (BEAKER) (test 4.3 meq/L 3.5-5.1 ynwf=090) CHLORIDE (BEAKER) (test 101 meq/L 98-107 yyyj=385) CO2 (BEAKER) (test 25 meq/L 22-29 dhfj=423) BLOOD UREA NITROGEN 45 mg/dL 7-21 (BEAKER) (test ggol=971) CREATININE (BEAKER) (test 1.89 mg/dL 0.57-1.25 bimx=233) GLUCOSE RANDOM (BEAKER) 241 mg/dL 70-105 (test bwiu=440) CALCIUM (BEAKER) (test 8.6 mg/dL 8.4-10.2 jagu=901) AST (SGOT) (BEAKER) (test 19 U/L 5-34 kiym=533) ALT (SGPT) (BEAKER) (test 10 U/L 6-55 skdv=220) EGFR (BEAKER) (test 27 mL/min/1.73 sq m ESTIMATED GFR IS NOT kovn=4067) ACCURATE CREATININE CLEARANCE IN PREDICTING GLOMERULAR FILTRATION RATE. ESTIMATED GFR IS NOT APPLICABLE FOR DIALYSIS PATIENTS. [id number] 08:02:00 Test Item Value Reference Range Comments PHOSPHORUS (BEAKER) (test rysg=507) 3.6 mg/dL 2.3-4.7 [id number] 08:02:00 Test Item Value Reference Range Comments MAGNESIUM (BEAKER) (test jjwi=766) 2.0 mg/dL 1.6-2.6 CBC W/PLT COUNT & AUTO [id number] 05:40:00 Test Item Value Reference Range Comments WHITE BLOOD CELL COUNT (BEAKER) (test bwtk=557) 5.7 K/ L 3.5-10.5 RED BLOOD CELL COUNT (BEAKER) (test pmim=124) 3.76 M/ L 3.93-5.22 HEMOGLOBIN (BEAKER) (test rokm=885) 10.6 GM/DL 11.2-15.7 HEMATOCRIT (BEAKER) (test qsqk=597) 32.9 % 34.1-44.9 MEAN CORPUSCULAR VOLUME (BEAKER) (test kmwn=016) 87.5 fL 79.4-94.8 MEAN CORPUSCULAR HEMOGLOBIN (BEAKER) (test 28.2 pg 25.6-32.2 dnji=206) MEAN CORPUSCULAR HEMOGLOBIN CONC (BEAKER) (test 32.2 GM/DL 32.2-35.5 cbke=631) RED CELL DISTRIBUTION WIDTH (BEAKER) (test 14.2 % 11.7-14.4 geoz=278) PLATELET COUNT (BEAKER) (test rbks=218) 142 K/CU MM 150-450 MEAN PLATELET VOLUME (BEAKER) (test twng=100) 9.8 fL 9.4-12.3 NUCLEATED RED BLOOD CELLS (BEAKER) (test 0 /100 WBC 0-0 mfzq=985) NEUTROPHILS RELATIVE PERCENT (BEAKER) (test 70 % rixh=547) LYMPHOCYTES RELATIVE PERCENT (BEAKER) (test 19 % hmff=827) MONOCYTES RELATIVE PERCENT (BEAKER) (test 7 % wyfm=792) EOSINOPHILS RELATIVE PERCENT (BEAKER) (test 3 % dvpb=496) BASOPHILS RELATIVE PERCENT (BEAKER) (test 1 % trza=441) NEUTROPHILS ABSOLUTE COUNT (BEAKER) (test 3.99 K/ L 1.56-6.13 ccab=311) LYMPHOCYTES ABSOLUTE COUNT (BEAKER) (test 1.05 K/ L 1.18-3.74 enef=759) MONOCYTES ABSOLUTE COUNT (BEAKER) (test 0.40 K/ L 0.24-0.36 dwgv=861) EOSINOPHILS ABSOLUTE COUNT (BEAKER) (test 0.16 K/ L 0.04-0.36 ycfd=441) BASOPHILS ABSOLUTE COUNT (BEAKER) (test 0.04 K/ L 0.01-0.08 ntve=557) IMMATURE GRANULOCYTES-RELATIVE PERCENT (BEAKER) 0 % 0-1 (test kffy=5272) CALCIUM, [id number] 05:17:00 Test Item Value Reference Range Comments CALCIUM IONIZED (BEAKER) (test kjkx=003) 1.06 mmol/L 1.12-1.27 PH, BLOOD (BEAKER) (test pscy=0876) 7.41 U/S, RENAL, [id number] 03:59:00Reason for exam:->HEMALATHA/CKDShould this be performed at [...] Wilson Verified Date/Time: 11/24/2018 03:59:04 Reading Location: [address] Transitional Reading Room TROPONIN [id number] 23:19:00 Test Item Value Reference Range Comments TROPONIN I (BEAKER) (test rbci=561) < ng/mL 0.00-0.03 Troponin I (TnI) levels [...] acidosis, acute neurological disease, and persistent tachyarrhythmia.POCT-GLUCOSE [id number] 21:12:00 Test Item Value Reference Range Comments POC-GLUCOSE METER (BEAKER) 277 mg/dL 70-110 TESTED AT [address] (test pvug=5849) [facility] [address] PROTEIN, RANDOM [id number] 20:11:00 Test Item Value Reference Range Comments PROTEIN, URINE (BEAKER) (test ital=2822) 10 mg/dL 0-14 SODIUM, RANDOM [id number] 20:05:00 Test Item Value Reference Range Comments SODIUM URINE (BEAKER) (test pter=759) < meq/L Reference Range: No NormalsPOCT-GLUCOSE [id number] 17:28:00 Test Item Value Reference Range Comments POC-GLUCOSE METER (BEAKER) 291 mg/dL 70-110 TESTED AT [address] (test stpi=4906) [facility] [address] POCT-GLUCOSE [id number] 14:02:00 Test Item Value Reference Range Comments POC-GLUCOSE METER (BEAKER) 148 mg/dL 70-110 TESTED AT [facility] [address] [facility] (test kmfz=4385) [facility] [address] URINALYSIS W/ [id number] 13:32:00 Test Item Value Reference Range Comments COLOR (BEAKER) (test iaop=163) Yellow CLARITY (BEAKER) (test wnqi=416) Clear SPECIFIC GRAVITY UA (BEAKER) (test 1.015 1.001-1.035 bchw=282) PH UA (BEAKER) (test olrr=321) 5.0 5.0-8.0 PROTEIN UA (BEAKER) (test jgzu=996) Negative Negative GLUCOSE UA (BEAKER) (test clim=882) Negative Negative KETONES UA (BEAKER) (test csuf=686) Negative Negative BILIRUBIN UA (BEAKER) (test gtqn=231) Negative Negative BLOOD UA (BEAKER) (test alki=588) Negative Negative NITRITE UA (BEAKER) (test adyq=047) Negative Negative LEUKOCYTE ESTERASE UA (BEAKER) (test Negative Negative ecje=602) UROBILINOGEN UA (BEAKER) (test eihh=863) 0.2 mg/dL 0.2-1.0 RBC UA (BEAKER) (test vvjr=787) < /HPF WBC UA (BEAKER) (test fobz=696) 2 /HPF BACTERIA (BEAKER) (test oqzr=866) Occasional SQUAMOUS EPITHELIAL (BEAKER) (test 19 /HPF iakj=179) HYALINE CASTS (BEAKER) (test osjz=326) 5 /LPF AMORPHOUS CRYSTALS (BEAKER) (test Occasional ghlg=5103) SOURCE(BEAKER) (test qrzj=4509) Urine, Clean Catch U/S, ABDOMINAL, [id number] 13:29:00Abdomen limited area? Add comment if clarification [...] Valles Verified Date/Time: 11/23/2018 13:29:13 Reading Location: [address] Transitional Reading Room U/S, [id number] 13:01:00Reason for exam:->Therapeutic paracentesisFINAL REPORT Paracentesis dated 11/23/2018 Procedure: Ultrasound-guided paracentesis. Preprocedure diagnosis: Ascites Postprocedure diagnosis: Ascites Conscious sedation: None. Radiologist: Giovanni Haas M.D. Financial Recording Clerk: None Anesthesia: 1% Xylocaine mixed with sodium bicarbonate local anesthesia. Technique: After obtaining informed consent, ultrasound-guided paracentesis was performed under usual sterile technique. Using a 5 kazakh drainage catheter , puncture was made in the right lower quadrant abdomen. Approximately 16,200 cc of serous fluid was removed. Patient tolerated the procedure well without complication. Complication: None Graft/Implant: None Estimated Blood Loss: None Impression: Ultrasound-guided paracentesis. Signed: Giovanni Haas Verified Date/Time: 11/23/2018 13:01:25 Reading Location: [facility] [id number] Ortho Consult Reading Room Electronically signedby: GIOVANNI HAAS M.D. on 2018 01:01 PMCBC W/PLT COUNT & AUTO [id number] 08:55:00 Test Item Value Reference Range Comments WHITE BLOOD CELL COUNT (BEAKER) (test qhjt=520) 5.7 K/ L 3.5-10.5 RED BLOOD CELL COUNT (BEAKER) (test nplf=611) 3.72 M/ L 3.93-5.22 HEMOGLOBIN (BEAKER) (test cjpq=837) 10.5 GM/DL 11.2-15.7 HEMATOCRIT (BEAKER) (test uhpo=004) 32.5 % 34.1-44.9 MEAN CORPUSCULAR VOLUME (BEAKER) (test kkdg=451) 87.4 fL 79.4-94.8 MEAN CORPUSCULAR HEMOGLOBIN (BEAKER) (test 28.2 pg 25.6-32.2 amnb=109) MEAN CORPUSCULAR HEMOGLOBIN CONC (BEAKER) (test 32.3 GM/DL 32.2-35.5 ujjf=432) RED CELL DISTRIBUTION WIDTH (BEAKER) (test 14.5 % 11.7-14.4 fvhv=919) PLATELET COUNT (BEAKER) (test vvnd=821) 148 K/CU MM 150-450 MEAN PLATELET VOLUME (BEAKER) (test wvff=658) 9.4 fL 9.4-12.3 NUCLEATED RED BLOOD CELLS (BEAKER) (test 0 /100 WBC 0-0 yvzi=824) NEUTROPHILS RELATIVE PERCENT (BEAKER) (test 63 % iivs=827) LYMPHOCYTES RELATIVE PERCENT (BEAKER) (test 23 % ymfd=401) MONOCYTES RELATIVE PERCENT (BEAKER) (test 8 % rifr=981) EOSINOPHILS RELATIVE PERCENT (BEAKER) (test 5 % hiau=696) BASOPHILS RELATIVE PERCENT (BEAKER) (test 1 % xqsc=765) NEUTROPHILS ABSOLUTE COUNT (BEAKER) (test 3.61 K/ L 1.56-6.13 uekz=381) LYMPHOCYTES ABSOLUTE COUNT (BEAKER) (test 1.29 K/ L 1.18-3.74 pazf=255) MONOCYTES ABSOLUTE COUNT (BEAKER) (test 0.47 K/ L 0.24-0.36 wkse=946) EOSINOPHILS ABSOLUTE COUNT (BEAKER) (test 0.28 K/ L 0.04-0.36 nryv=471) BASOPHILS ABSOLUTE COUNT (BEAKER) (test 0.05 K/ L 0.01-0.08 ycqq=501) IMMATURE GRANULOCYTES-RELATIVE PERCENT (BEAKER) 0 % 0-1 (test olfg=1099) POCT-GLUCOSE [id number] 07:43:00 Test Item Value Reference Range Comments POC-GLUCOSE METER (BEAKER) 196 mg/dL 70-110 TESTED AT [facility] [address] [facility] (test bgnw=8715) [facility] [address] [id number] 06:53:00 Test Item Value Reference Range Comments FERRITIN (BEAKER) (test cziz=955) 52 ng/mL 5-275 HEPATITIS B [id number] 06:21:00 Test Item Value Reference Range Comments HEPATITIS B CORE TOTAL ANTIBODY (BEAKER) (test Nonreactive Nonreactive pvam=865) HEPATITIS B SURFACE ANTIBODY (BEAKER) (test < mIU/mL <8.0 nlfz=102) HEPATITIS B SURFACE ANTIGEN (2) (BEAKER) (test Nonreactive Nonreactive uxpj=8665) HEPATITIS C [id number] 06:20:00 Test Item Value Reference Range Comments HEPATITIS C ANTIBODY (BEAKER) (test bqlv=675) Nonreactive Nonreactive HEPATITIS A [id number] 06:20:00 Test Item Value Reference Range Comments HEPATITIS A IGM ANTIBODY (BEAKER) (test Nonreactive Nonreactive byes=307) HEPATITIS A IGG ANTIBODY (BEAKER) (test Nonreactive Nonreactive tgtq=9221) ALPHA FETOPROTEIN (AFP), TUMOR [id number] 06:14:00 Test Item Value Reference Range Comments ALPHA-FETOPROTEIN (BEAKER) (test vhqb=5699) 2.1 ng/mL <10.0 COMPREHENSIVE METABOLIC [id number] 06:01:00 Test Item Value Reference Range Comments TOTAL PROTEIN (BEAKER) 5.9 gm/dL 6.0-8.3 (test pfni=146) ALBUMIN (BEAKER) (test 2.9 g/dL 3.5-5.0 excj=8220) ALKALINE PHOSPHATASE 96 U/L 40-150 (BEAKER) (test gbei=903) BILIRUBIN TOTAL (BEAKER) 0.5 mg/dL 0.2-1.2 (test mjhp=951) SODIUM (BEAKER) (test 132 meq/L 136-145 hycm=632) POTASSIUM (BEAKER) (test 4.3 meq/L 3.5-5.1 jomc=986) CHLORIDE (BEAKER) (test 100 meq/L 98-107 dgjp=962) CO2 (BEAKER) (test 26 meq/L 22-29 ltdh=506) BLOOD UREA NITROGEN 50 mg/dL 7-21 (BEAKER) (test ebti=749) CREATININE (BEAKER) (test 2.27 mg/dL 0.57-1.25 sbwd=080) GLUCOSE RANDOM (BEAKER) 219 mg/dL 70-105 (test qecx=715) CALCIUM (BEAKER) (test 8.8 mg/dL 8.4-10.2 yglc=480) AST (SGOT) (BEAKER) (test 22 U/L 5-34 sujl=945) ALT (SGPT) (BEAKER) (test 15 U/L 6-55 alnn=678) EGFR (BEAKER) (test 22 mL/min/1.73 sq m ESTIMATED GFR IS NOT lmmq=9034) ACCURATE CREATININE CLEARANCE IN PREDICTING GLOMERULAR FILTRATION RATE. ESTIMATED GFR IS NOT APPLICABLE FOR DIALYSIS PATIENTS. IRON, TIBC, % SAT. (WITHOUT FERRITIN)2018-11-23 05:55:00 Test Item Value Reference Range Comments IRON (BEAKER) (test lcay=861) 46.0 ug/dL 40.0-160.0 TOTAL IRON BINDING CAPACITY (BEAKER) (test 269 ug/dL 250-450 kedq=050) IRON % SATURATION (2) (BEAKER) (test lmnx=2408) 17 % 20-55 [id number] 05:54:00 Test Item Value Reference Range Comments ALPHA-1 ANTITRYPSIN (BEAKER) (test hzjd=193) 202.70 mg/dL 90.00-200.00 COMPREHENSIVE METABOLIC [id number] 00:16:00 Test Item Value Reference Range Comments TOTAL PROTEIN (BEAKER) 6.8 gm/dL 6.0-8.3 (test iswo=974) ALBUMIN (BEAKER) (test 3.3 g/dL 3.5-5.0 loby=4382) ALKALINE PHOSPHATASE 114 U/L 40-150 (BEAKER) (test gxyb=552) BILIRUBIN TOTAL (BEAKER) 0.6 mg/dL 0.2-1.2 (test nnzc=009) SODIUM (BEAKER) (test 130 meq/L 136-145 jwxg=635) POTASSIUM (BEAKER) (test 4.4 meq/L 3.5-5.1 jjfk=193) CHLORIDE (BEAKER) (test 99 meq/L 98-107 twfj=447) CO2 (BEAKER) (test 22 meq/L 22-29 dbfz=781) BLOOD UREA NITROGEN 46 mg/dL 7-21 (BEAKER) (test nldc=269) CREATININE (BEAKER) (test 2.40 mg/dL 0.57-1.25 tkmm=429) GLUCOSE RANDOM (BEAKER) 153 mg/dL 70-105 (test avts=551) CALCIUM (BEAKER) (test 9.1 mg/dL 8.4-10.2 chph=679) AST (SGOT) (BEAKER) (test 25 U/L 5-34 qeoy=493) ALT (SGPT) (BEAKER) (test 17 U/L 6-55 euqy=683) EGFR (BEAKER) (test 21 mL/min/1.73 sq m ESTIMATED GFR IS NOT wall=4876) ACCURATE CREATININE CLEARANCE IN PREDICTING GLOMERULAR FILTRATION RATE. ESTIMATED GFR IS NOT APPLICABLE FOR DIALYSIS PATIENTS. [id number] 23:52:00 Test Item Value Reference Range Comments PROTIME (BEAKER) (test lpqn=422) 13.3 seconds 11.7-14.7 INR (BEAKER) (test oowq=076) 1.0 <=5.9 PARTIAL THROMBOPLASTIN TIME (BEAKER) (test 26.9 seconds 22.5-36.0 oxwm=369) RECOMMENDED COUMADIN/WARFARIN INR THERAPY RANGESSTANDARD DOSE: 2.0 - 3.0 Includes: PROPHYLAXIS forvenous thrombosis, systemic embolization; TREATMENT for venous thrombosis and/or pulmonary embolus.HIGH RISK: Target INR is 2.5-3.5 for patients with mechanical heart valves.POCT-GLUCOSE [id number] 21:25:00 Test Item Value Reference Range Comments POC-GLUCOSE METER (BEAKER) 178 mg/dL 70-110 TESTED AT [facility] [address] [facility] (test pmau=7235) [facility] [address]
[2019-10-22 08:09] VITALS: BMI 43.7
--- NOTE | 2019-10-22 11:54 | RAD REPORT ---
EXAM DESCRIPTION: US - Paracentesis Proc Guidance - 10/22/2019 9:44 am CLINICAL HISTORY: Liver disease with ascites FINDINGS: The risks, benefits and alternatives to the procedure were explained to the patient and in formed consent obtained. The skin and subcutaneous tissues were anesthetized with Lidocaine. Under sonographic guidance an 8 F rench catheter was placed into the left lower quadrant. 3.5 liters of yellow fluid removed and sent t o lab The patient experienced no immediate complication. IMPRESSION: Paracentesis
[2019-10-22 12:39] VITALS: TEMP 97.2
[2019-10-22 12:41] VITALS: BP 118/57; O2SAT 95
[2019-10-22 12:49] LABS: Appearance CLEAR (CLEAR); Body Fluid Source PERITONEAL; Color of fluid Yellow (COLORLESS)
[2019-10-22 12:50] LABS: Body Fluid WBC 138 /mm^3
== END ==
LOC: DS 07:21
PROVIDERS: ATTEND Internal Medicine Hepatology
DX: R18.8 Other ascites (principal)
CPT/HCPCS: 36415; 89050; 82565; 96365; 49083; P9047

== ENCOUNTER 2019-10-29 08:09 | Day surgery (SDC) | payer OTHER ==
--- OUTSIDE RECORDS SUMMARY | 2019-10-29 08:21 | XMS REPORT ---
:1960 [facility] [address] [place] [address] Dr. Melton [address] [place] [id number] Care Team Providers Name Role Phone DANIEL [...] Reference Range Comments TOTAL PROTEIN (BEAKER) (test zcug=824) 6.5 gm/dL 6.0-8.3 ALBUMIN (BEAKER) (test yben=1237) 3.0 g/dL 3.5-5.0 BILIRUBIN TOTAL (BEAKER) (test zeyb=388) 1.5 mg/dL 0.2-1.2 BILIRUBIN DIRECT (BEAKER) (test yobe=889) 0.7 mg/dL 0.1-0.5 ALKALINE PHOSPHATASE (BEAKER) (test mfup=078) 120 U/L 40-150 AST (SGOT) (BEAKER) (test bqgm=972) 34 U/L 5-34 ALT (SGPT) (BEAKER) (test xqgz=539) 21 U/L 6-55 BASIC METABOLIC [id number] 15:39:00 Test Item Value Reference Range Comments SODIUM (BEAKER) (test 135 meq/L 136-145 csvo=505) POTASSIUM (BEAKER) (test 3.8 meq/L 3.5-5.1 yquh=994) CHLORIDE (BEAKER) (test 99 meq/L 98-107 clyn=905) CO2 (BEAKER) (test 31 meq/L 22-29 iubk=031) BLOOD UREA NITROGEN 21 mg/dL 7-21 (BEAKER) (test jzjq=032) CREATININE (BEAKER) (test 1.70 mg/dL 0.57-1.25 zbpy=575) GLUCOSE RANDOM (BEAKER) 290 mg/dL 70-105 (test oktd=135) CALCIUM (BEAKER) (test 8.4 mg/dL 8.4-10.2 cmbv=536) EGFR (BEAKER) (test 31 mL/min/1.73 sq m ESTIMATED GFR IS NOT gcuj=5224) ACCURATE CREATININE CLEARANCE IN PREDICTING GLOMERULAR FILTRATION RATE. ESTIMATED GFR IS NOT APPLICABLE FOR DIALYSIS PATIENTS. PROTHROMBIN [id number] 15:39:00 Test Item Value Reference Range Comments PROTIME (BEAKER) (test tnqc=643) 14.2 seconds 11.9-14.2 INR (BEAKER) (test mgal=036) 1.2 <=5.9 Effective 04/01/2019: PT Reference Range ChangeNew: 11.9-14.2 Previous: 11.7- 14.7RECOMMENDED COUMADIN/WARFARIN INR THERAPY RANGESSTANDARD DOSE: 2.0-3.0 Includes: PROPHYLAXIS for venous thrombosis, systemic embolization; TREATMENT for venous thrombosis and/or pulmonary embolus.HIGH RISK: Target INR is2.5-3.5 for patients wiht mechanical heart valves.CBC W/PLT COUNT & AUTO [id number] 15:25:00 Test Item Value Reference Range Comments WHITE BLOOD CELL COUNT (BEAKER) (test mplg=647) 5.8 K/ L 3.5-10.5 RED BLOOD CELL COUNT (BEAKER) (test awhz=580) 3.30 M/ L 3.93-5.22 HEMOGLOBIN (BEAKER) (test bomy=437) 8.9 GM/DL 11.2-15.7 HEMATOCRIT (BEAKER) (test mmmr=663) 28.2 % 34.1-44.9 MEAN CORPUSCULAR VOLUME (BEAKER) (test nfmc=191) 85.5 fL 79.4-94.8 MEAN CORPUSCULAR HEMOGLOBIN (BEAKER) (test 27.0 pg 25.6-32.2 hmms=602) MEAN CORPUSCULAR HEMOGLOBIN CONC (BEAKER) (test 31.6 GM/DL 32.2-35.5 krtq=503) RED CELL DISTRIBUTION WIDTH (BEAKER) (test 16.6 % 11.7-14.4 zxjm=958) PLATELET COUNT (BEAKER) (test ovrr=135) 185 K/CU MM 150-450 MEAN PLATELET VOLUME (BEAKER) (test jbdp=673) 9.0 fL 9.4-12.3 NUCLEATED RED BLOOD CELLS (BEAKER) (test 0 /100 WBC 0-0 xfkp=962) NEUTROPHILS RELATIVE PERCENT (BEAKER) (test 50 % iyjs=260) LYMPHOCYTES RELATIVE PERCENT (BEAKER) (test 32 % ogdg=333) MONOCYTES RELATIVE PERCENT (BEAKER) (test 7 % tucy=798) EOSINOPHILS RELATIVE PERCENT (BEAKER) (test 10 % gqkn=250) BASOPHILS RELATIVE PERCENT (BEAKER) (test 2 % itkt=326) NEUTROPHILS ABSOLUTE COUNT (BEAKER) (test 2.88 K/ L 1.56-6.13 vgxl=161) LYMPHOCYTES ABSOLUTE COUNT (BEAKER) (test 1.86 K/ L 1.18-3.74 ljfj=023) MONOCYTES ABSOLUTE COUNT (BEAKER) (test 0.38 K/ L 0.24-0.36 zhdl=869) EOSINOPHILS ABSOLUTE COUNT (BEAKER) (test 0.55 K/ L 0.04-0.36 xlgh=750) BASOPHILS ABSOLUTE COUNT (BEAKER) (test 0.10 K/ L 0.01-0.08 hdzy=906) IMMATURE GRANULOCYTES-RELATIVE PERCENT (BEAKER) 0 % 0-1 (test jqyu=4939) PROTHROMBIN [id number] 17:20:00 Test Item Value Reference Range Comments PROTIME (BEAKER) (test zpvk=137) 13.6 seconds 11.9-14.2 INR (BEAKER) (test noaj=629) 1.1 <=5.9 Effective 04/01/2019: PT Reference Range ChangeNew: 11.9-14.2 Previous: 11.7- 14.7RECOMMENDED COUMADIN/WARFARIN INR THERAPY RANGESSTANDARD DOSE: 2.0-3.0 Includes: PROPHYLAXIS for venous thrombosis, systemic embolization; TREATMENT for venous thrombosis and/or pulmonary embolus.HIGH RISK: Target INR is2.5-3.5 for patients wiht mechanical heart valves.HEPATIC FUNCTION [id number] 17:16 :00 Test Item Value Reference Range Comments TOTAL PROTEIN (BEAKER) (test awao=258) 6.7 gm/dL 6.0-8.3 ALBUMIN (BEAKER) (test ztkp=4003) 3.0 g/dL 3.5-5.0 BILIRUBIN TOTAL (BEAKER) (test bpvw=607) 1.4 mg/dL 0.2-1.2 BILIRUBIN DIRECT (BEAKER) (test qmnv=551) 0.7 mg/dL 0.1-0.5 ALKALINE PHOSPHATASE (BEAKER) (test uecr=846) 139 U/L 40-150 AST (SGOT) (BEAKER) (test sgav=971) 32 U/L 5-34 ALT (SGPT) (BEAKER) (test hdtn=657) 16 U/L 6-55 BASIC METABOLIC [id number] 17:16:00 Test Item Value Reference Range Comments SODIUM (BEAKER) (test 139 meq/L 136-145 hzwg=633) POTASSIUM (BEAKER) (test 3.6 meq/L 3.5-5.1 smlq=879) CHLORIDE (BEAKER) (test 99 meq/L 98-107 jzls=503) CO2 (BEAKER) (test 32 meq/L 22-29 gsan=926) BLOOD UREA NITROGEN 26 mg/dL 7-21 (BEAKER) (test gltq=587) CREATININE (BEAKER) (test 1.68 mg/dL 0.57-1.25 ssng=359) GLUCOSE RANDOM (BEAKER) 263 mg/dL 70-105 (test fxju=288) CALCIUM (BEAKER) (test 9.0 mg/dL 8.4-10.2 unts=590) EGFR (BEAKER) (test 31 mL/min/1.73 sq m ESTIMATED GFR IS NOT nedt=9115) ACCURATE CREATININE CLEARANCE IN PREDICTING GLOMERULAR FILTRATION RATE. ESTIMATED GFR IS NOT APPLICABLE FOR DIALYSIS PATIENTS. CBC W/PLT COUNT & AUTO [id number] 17:01:00 Test Item Value Reference Range Comments WHITE BLOOD CELL COUNT (BEAKER) (test kwei=911) 7.4 K/ L 3.5-10.5 RED BLOOD CELL COUNT (BEAKER) (test nntd=198) 3.44 M/ L 3.93-5.22 HEMOGLOBIN (BEAKER) (test ymhb=207) 9.6 GM/DL 11.2-15.7 HEMATOCRIT (BEAKER) (test ffko=812) 30.1 % 34.1-44.9 MEAN CORPUSCULAR VOLUME (BEAKER) (test fsnf=812) 87.5 fL 79.4-94.8 MEAN CORPUSCULAR HEMOGLOBIN (BEAKER) (test 27.9 pg 25.6-32.2 gvby=812) MEAN CORPUSCULAR HEMOGLOBIN CONC (BEAKER) (test 31.9 GM/DL 32.2-35.5 xtzx=204) RED CELL DISTRIBUTION WIDTH (BEAKER) (test 16.0 % 11.7-14.4 xfkf=132) PLATELET COUNT (BEAKER) (test udmb=687) 190 K/CU MM 150-450 MEAN PLATELET VOLUME (BEAKER) (test qpal=223) 9.3 fL 9.4-12.3 NUCLEATED RED BLOOD CELLS (BEAKER) (test 0 /100 WBC 0-0 fkua=103) NEUTROPHILS RELATIVE PERCENT (BEAKER) (test 65 % pdfo=035) LYMPHOCYTES RELATIVE PERCENT (BEAKER) (test 23 % mzrh=985) MONOCYTES RELATIVE PERCENT (BEAKER) (test 6 % qpms=614) EOSINOPHILS RELATIVE PERCENT (BEAKER) (test 5 % cicp=008) BASOPHILS RELATIVE PERCENT (BEAKER) (test 1 % msag=288) NEUTROPHILS ABSOLUTE COUNT (BEAKER) (test 4.83 K/ L 1.56-6.13 wkjh=696) LYMPHOCYTES ABSOLUTE COUNT (BEAKER) (test 1.67 K/ L 1.18-3.74 sqxa=395) MONOCYTES ABSOLUTE COUNT (BEAKER) (test 0.41 K/ L 0.24-0.36 aldr=406) EOSINOPHILS ABSOLUTE COUNT (BEAKER) (test 0.40 K/ L 0.04-0.36 grmz=968) BASOPHILS ABSOLUTE COUNT (BEAKER) (test 0.06 K/ L 0.01-0.08 mnpn=015) IMMATURE GRANULOCYTES-RELATIVE PERCENT (BEAKER) 0 % 0-1 (test bthp=6742) POCT-GLUCOSE [id number] 13:48:00 Test Item Value Reference Range Comments POC-GLUCOSE METER (BEAKER) 203 mg/dL 70-[address] [facility] [address] [facility] (test lpyq=0487) [facility] [address] POCT-GLUCOSE [id number] 09:45:00 Test Item Value Reference Range Comments POC-GLUCOSE METER (BEAKER) 168 mg/dL 70-[address] [facility] [address] [facility] (test tqdq=3030) [facility] [address] POCT-GLUCOSE [id number] 08:06:00 Test Item Value Reference Range Comments POC-GLUCOSE METER (BEAKER) 177 mg/dL 70-110 TESTED AT [address] (test soea=1969) [facility] [address] COMPREHENSIVE METABOLIC [id number] 06:11:00 Test Item Value Reference Range Comments TOTAL PROTEIN (BEAKER) 5.5 gm/dL 6.0-8.3 (test hzdz=431) ALBUMIN (BEAKER) (test 3.0 g/dL 3.5-5.0 jlez=0187) ALKALINE PHOSPHATASE 117 U/L 40-150 (BEAKER) (test ggvp=976) BILIRUBIN TOTAL (BEAKER) 1.2 mg/dL 0.2-1.2 (test qyib=995) SODIUM (BEAKER) (test 138 meq/L 136-145 fimt=036) POTASSIUM (BEAKER) (test 4.1 meq/L 3.5-5.1 bbae=082) CHLORIDE (BEAKER) (test 102 meq/L 98-107 zoku=270) CO2 (BEAKER) (test 29 meq/L 22-29 qhys=233) BLOOD UREA NITROGEN 23 mg/dL 7-21 (BEAKER) (test ucci=675) CREATININE (BEAKER) (test 1.26 mg/dL 0.57-1.25 zcci=676) GLUCOSE RANDOM (BEAKER) 177 mg/dL 70-105 (test uhyy=717) CALCIUM (BEAKER) (test 8.3 mg/dL 8.4-10.2 qevq=093) AST (SGOT) (BEAKER) (test 26 U/L 5-34 nvqe=894) ALT (SGPT) (BEAKER) (test 9 U/L 6-55 tyim=351) EGFR (BEAKER) (test 43 mL/min/1.73 sq m ESTIMATED GFR IS NOT wywt=5596) ACCURATE CREATININE CLEARANCE IN PREDICTING GLOMERULAR FILTRATION RATE. ESTIMATED GFR IS NOT APPLICABLE FOR DIALYSIS PATIENTS. CBC (HEMOGRAM ONLY)2019-06-03 05:17:00 Test Item Value Reference Range Comments WHITE BLOOD CELL COUNT (BEAKER) (test bcul=075) 6.0 K/ L 3.5-10.5 RED BLOOD CELL COUNT (BEAKER) (test aptn=870) 2.95 M/ L 3.93-5.22 HEMOGLOBIN (BEAKER) (test ryhc=389) 8.1 GM/DL 11.2-15.7 HEMATOCRIT (BEAKER) (test gdim=955) 26.3 % 34.1-44.9 MEAN CORPUSCULAR VOLUME (BEAKER) (test poph=678) 89.2 fL 79.4-94.8 MEAN CORPUSCULAR HEMOGLOBIN (BEAKER) (test 27.5 pg 25.6-32.2 chgf=950) MEAN CORPUSCULAR HEMOGLOBIN CONC (BEAKER) (test 30.8 GM/DL 32.2-35.5 rszi=228) RED CELL DISTRIBUTION WIDTH (BEAKER) (test 17.3 % 11.7-14.4 znyj=454) PLATELET COUNT (BEAKER) (test zats=898) 203 K/CU MM 150-450 MEAN PLATELET VOLUME (BEAKER) (test naqq=207) 9.2 fL 9.4-12.3 NUCLEATED RED BLOOD CELLS (BEAKER) (test 0 /100 WBC 0-0 ogrw=458) POCT-GLUCOSE [id number] 23:37:00 Test Item Value Reference Range Comments POC-GLUCOSE METER (BEAKER) 212 mg/dL 70-110 TESTED AT [place] [id number] [facility] (test tidl=4946) [facility] [address] POCT-GLUCOSE [id number] 16:58:00 Test Item Value Reference Range Comments POC-GLUCOSE METER (BEAKER) 313 mg/dL 70-110 TESTED AT [address] (test hpcg=9619) [facility] [address] ANG, TIPSS [id number] 14:25:00Reason for exam:->still recurrent paracentesisFINAL REPORT Procedures:1. [...] the patient's medical record by the nurse. Windows Systems Architect: Akil Chung MD. Magneto Repairer: MD Ishaan (Fellow) Approach: 1. Right lower [...] skin and deep soft tissues. A 5 Indian one-step catheter wasinserted and removed from the [...] The needle was exchanged for a 4 Indian micropuncture sheath. The micropuncture sheath was exchanged over a 0.035 Bentson wire for a 5 Indian x 10 cm vascular sheath. The TIPS stent was then cannulated using a 5 Indian C2 catheter and 0.035 angled Glidewire. The [...] Verified Date/Time: 06/02/2019 14:25:34 Reading Location : [place] [address] Angio Body Reading Room POCT-GLUCOSE [id number] 11:52:00 Test Item Value Reference Range Comments POC-GLUCOSE METER (BEAKER) 159 mg/dL 70-[address] [facility] [address] [facility] (test wezn=1712) [facility] [address] [id number] 05:55:00 Test Item Value Reference Range Comments MAGNESIUM (BEAKER) (test sypz=834) 1.6 mg/dL 1.6-2.6 COMPREHENSIVE METABOLIC [id number] 05:55:00 Test Item Value Reference Range Comments TOTAL PROTEIN (BEAKER) 5.7 gm/dL 6.0-8.3 (test spxn=014) ALBUMIN (BEAKER) (test 3.3 g/dL 3.5-5.0 pwbm=6486) ALKALINE PHOSPHATASE 118 U/L 40-150 (BEAKER) (test ntan=092) BILIRUBIN TOTAL (BEAKER) 1.4 mg/dL 0.2-1.2 (test waew=187) SODIUM (BEAKER) (test 140 meq/L 136-145 rtjo=370) POTASSIUM (BEAKER) (test 3.3 meq/L 3.5-5.1 dnjq=830) CHLORIDE (BEAKER) (test 101 meq/L 98-107 tbtd=032) CO2 (BEAKER) (test 31 meq/L 22-29 qfgp=034) BLOOD UREA NITROGEN 23 mg/dL 7-21 (BEAKER) (test ifco=848) CREATININE (BEAKER) (test 1.33 mg/dL 0.57-1.25 fsaj=481) GLUCOSE RANDOM (BEAKER) 131 mg/dL 70-105 (test uuca=851) CALCIUM (BEAKER) (test 8.7 mg/dL 8.4-10.2 gohh=736) AST (SGOT) (BEAKER) (test 27 U/L 5-34 pwnm=773) ALT (SGPT) (BEAKER) (test 11 U/L 6-55 pujj=309) EGFR (BEAKER) (test 41 mL/min/1.73 sq m ESTIMATED GFR IS NOT udvk=8852) ACCURATE CREATININE CLEARANCE IN PREDICTING GLOMERULAR FILTRATION RATE. ESTIMATED GFR IS NOT APPLICABLE FOR DIALYSIS PATIENTS. CBC W/PLT COUNT & AUTO [id number] 05:43:00 Test Item Value Reference Range Comments WHITE BLOOD CELL COUNT (BEAKER) (test uojb=012) 6.0 K/ L 3.5-10.5 RED BLOOD CELL COUNT (BEAKER) (test xxqj=420) 2.97 M/ L 3.93-5.22 HEMOGLOBIN (BEAKER) (test flqz=159) 8.2 GM/DL 11.2-15.7 HEMATOCRIT (BEAKER) (test bscz=517) 26.0 % 34.1-44.9 MEAN CORPUSCULAR VOLUME (BEAKER) (test tpay=761) 87.5 fL 79.4-94.8 MEAN CORPUSCULAR HEMOGLOBIN (BEAKER) (test 27.6 pg 25.6-32.2 ymlz=122) MEAN CORPUSCULAR HEMOGLOBIN CONC (BEAKER) (test 31.5 GM/DL 32.2-35.5 xyfb=812) RED CELL DISTRIBUTION WIDTH (BEAKER) (test 17.7 % 11.7-14.4 uixd=575) PLATELET COUNT (BEAKER) (test hcny=501) 194 K/CU MM 150-450 MEAN PLATELET VOLUME (BEAKER) (test khhc=651) 9.3 fL 9.4-12.3 NUCLEATED RED BLOOD CELLS (BEAKER) (test 0 /100 WBC 0-0 nafw=333) NEUTROPHILS RELATIVE PERCENT (BEAKER) (test 48 % oavj=197) LYMPHOCYTES RELATIVE PERCENT (BEAKER) (test 31 % lyvg=773) MONOCYTES RELATIVE PERCENT (BEAKER) (test 10 % rltp=550) EOSINOPHILS RELATIVE PERCENT (BEAKER) (test 9 % zqhu=576) BASOPHILS RELATIVE PERCENT (BEAKER) (test 1 % czae=686) NEUTROPHILS ABSOLUTE COUNT (BEAKER) (test 2.84 K/ L 1.56-6.13 jadp=806) LYMPHOCYTES ABSOLUTE COUNT (BEAKER) (test 1.87 K/ L 1.18-3.74 jzts=296) MONOCYTES ABSOLUTE COUNT (BEAKER) (test 0.60 K/ L 0.24-0.36 rwxm=352) EOSINOPHILS ABSOLUTE COUNT (BEAKER) (test 0.56 K/ L 0.04-0.36 wiyp=970) BASOPHILS ABSOLUTE COUNT (BEAKER) (test 0.08 K/ L 0.01-0.08 uzcl=462) IMMATURE GRANULOCYTES-RELATIVE PERCENT (BEAKER) 0 % 0-1 (test fqxx=4408) [id number] 05:42:00 Test Item Value Reference Range Comments PHOSPHORUS (BEAKER) (test waoj=952) 2.3 mg/dL 2.3-4.7 POCT-GLUCOSE [id number] 22:34:00 Test Item Value Reference Range Comments POC-GLUCOSE METER (BEAKER) 192 mg/dL 70-110 TESTED AT [address] (test lsvg=9774) [place] [id number] POCT-GLUCOSE [id number] 17:01:00 Test Item Value Reference Range Comments POC-GLUCOSE METER (BEAKER) 250 mg/dL 70-110 TESTED AT [address] (test mbrx=5884) [place] [address] [id number] 07:42:00 Test Item Value Reference Range Comments MAGNESIUM (BEAKER) (test 1.6 mg/dL 1.6-2.6 Specimen slightly hemolyzed kbzt=916) [id number] 07:42:00 Test Item Value Reference Range Comments PHOSPHORUS (BEAKER) (test 2.8 mg/dL 2.3-4.7 Specimen slightly hemolyzed eubb=706) COMPREHENSIVE METABOLIC [id number] 07:42:00 Test Item Value Reference Range Comments TOTAL PROTEIN (BEAKER) 5.5 gm/dL 6.0-8.3 Specimen slightly (test pela=623) hemolyzed ALBUMIN (BEAKER) (test 2.9 g/dL 3.5-5.0 Specimen slightly ncch=5223) hemolyzed ALKALINE PHOSPHATASE 125 U/L 40-150 (BEAKER) (test glou=865) BILIRUBIN TOTAL (BEAKER) 1.1 mg/dL 0.2-1.2 Specimen slightly (test gpaq=856) hemolyzed SODIUM (BEAKER) (test 141 meq/L 136-145 eejc=270) POTASSIUM (BEAKER) (test 3.6 meq/L 3.5-5.1 Specimen slightly qgxd=925) hemolyzed CHLORIDE (BEAKER) (test 101 meq/L 98-107 sbdz=454) CO2 (BEAKER) (test 31 meq/L 22-29 qhah=002) BLOOD UREA NITROGEN 23 mg/dL 7-21 (BEAKER) (test nrwf=432) CREATININE (BEAKER) (test 1.50 mg/dL 0.57-1.25 Specimen slightly yhgm=453) hemolyzed GLUCOSE RANDOM (BEAKER) 153 mg/dL 70-105 (test iokp=004) CALCIUM (BEAKER) (test 8.7 mg/dL 8.4-10.2 vqxe=350) AST (SGOT) (BEAKER) (test 35 U/L 5-34 Specimen slightly frfe=832) hemolyzed ALT (SGPT) (BEAKER) (test 12 U/L 6-55 Specimen slightly mdmj=069) hemolyzed EGFR (BEAKER) (test 35 mL/min/1.73 sq m ESTIMATED GFR IS NOT rwwu=8939) ACCURATE CREATININE CLEARANCE IN PREDICTING GLOMERULAR FILTRATION RATE. ESTIMATED GFR IS NOT APPLICABLE FOR DIALYSIS PATIENTS. POCT-GLUCOSE [id number] 07:38:00 Test Item Value Reference Range Comments POC-GLUCOSE METER (BEAKER) 154 mg/dL 70-[address] [facility] [address] [facility] (test trsz=0480) [facility] [address] CBC W/PLT COUNT & AUTO [id number] 06:24:00 Test Item Value Reference Range Comments WHITE BLOOD CELL COUNT (BEAKER) (test skpc=265) 6.0 K/ L 3.5-10.5 RED BLOOD CELL COUNT (BEAKER) (test iwhu=863) 3.09 M/ L 3.93-5.22 HEMOGLOBIN (BEAKER) (test umvs=441) 8.5 GM/DL 11.2-15.7 HEMATOCRIT (BEAKER) (test xhoe=388) 27.0 % 34.1-44.9 MEAN CORPUSCULAR VOLUME (BEAKER) (test ztzw=711) 87.4 fL 79.4-94.8 MEAN CORPUSCULAR HEMOGLOBIN (BEAKER) (test 27.5 pg 25.6-32.2 fflj=658) MEAN CORPUSCULAR HEMOGLOBIN CONC (BEAKER) (test 31.5 GM/DL 32.2-35.5 ogne=170) RED CELL DISTRIBUTION WIDTH (BEAKER) (test 17.7 % 11.7-14.4 ybfy=007) PLATELET COUNT (BEAKER) (test mrpe=193) 196 K/CU MM 150-450 MEAN PLATELET VOLUME (BEAKER) (test ekyd=080) 8.9 fL 9.4-12.3 NUCLEATED RED BLOOD CELLS (BEAKER) (test 0 /100 WBC 0-0 qkto=413) NEUTROPHILS RELATIVE PERCENT (BEAKER) (test 44 % vffo=210) LYMPHOCYTES RELATIVE PERCENT (BEAKER) (test 34 % mfej=438) MONOCYTES RELATIVE PERCENT (BEAKER) (test 11 % kzzw=911) EOSINOPHILS RELATIVE PERCENT (BEAKER) (test 9 % plhv=934) BASOPHILS RELATIVE PERCENT (BEAKER) (test 2 % zekx=615) NEUTROPHILS ABSOLUTE COUNT (BEAKER) (test 2.64 K/ L 1.56-6.13 johi=833) LYMPHOCYTES ABSOLUTE COUNT (BEAKER) (test 2.03 K/ L 1.18-3.74 gdjj=146) MONOCYTES ABSOLUTE COUNT (BEAKER) (test 0.64 K/ L 0.24-0.36 oowv=094) EOSINOPHILS ABSOLUTE COUNT (BEAKER) (test 0.54 K/ L 0.04-0.36 fymk=071) BASOPHILS ABSOLUTE COUNT (BEAKER) (test 0.09 K/ L 0.01-0.08 zgnp=120) IMMATURE GRANULOCYTES-RELATIVE PERCENT (BEAKER) 0 % 0-1 (test tnah=8595) CALCIUM, [id number] 05:35:00 Test Item Value Reference Range Comments CALCIUM IONIZED (BEAKER) (test quid=871) 0.99 mmol/L 1.12-1.27 PH, BLOOD (BEAKER) (test zcwr=8164) 7.50 POCT-GLUCOSE [id number] 22:12:00 Test Item Value Reference Range Comments POC-GLUCOSE METER (BEAKER) 246 mg/dL 70-110 TESTED AT [address] (test nprn=9089) [facility] [address] POCT-GLUCOSE [id number] 17:11:00 Test Item Value Reference Range Comments POC-GLUCOSE METER (BEAKER) 201 mg/dL 70-[address] [facility] [address] [facility] (test ochg=2310) [facility] [address] POCT-GLUCOSE [id number] 13:24:00 Test Item Value Reference Range Comments POC-GLUCOSE METER (BEAKER) 173 mg/dL 70-110 TESTED AT [place] [id number] [facility] (test ucrj=1087) [facility] [address] COMPREHENSIVE METABOLIC [id number] 09:06:00 Test Item Value Reference Range Comments TOTAL PROTEIN (BEAKER) 5.8 gm/dL 6.0-8.3 (test vlcq=162) ALBUMIN (BEAKER) (test 3.2 g/dL 3.5-5.0 cjaw=6268) ALKALINE PHOSPHATASE 125 U/L 40-150 (BEAKER) (test rvqj=735) BILIRUBIN TOTAL (BEAKER) 1.6 mg/dL 0.2-1.2 (test bnmc=246) SODIUM (BEAKER) (test 140 meq/L 136-145 ahzs=643) POTASSIUM (BEAKER) (test 3.4 meq/L 3.5-5.1 hvoq=880) CHLORIDE (BEAKER) (test 100 meq/L 98-107 gmrj=454) CO2 (BEAKER) (test 31 meq/L 22-29 sqqz=028) BLOOD UREA NITROGEN 21 mg/dL 7-21 (BEAKER) (test eofw=966) CREATININE (BEAKER) (test 1.57 mg/dL 0.57-1.25 sjns=140) GLUCOSE RANDOM (BEAKER) 138 mg/dL 70-105 (test zlde=923) CALCIUM (BEAKER) (test 8.9 mg/dL 8.4-10.2 bwke=024) AST (SGOT) (BEAKER) (test 33 U/L 5-34 vtnr=884) ALT (SGPT) (BEAKER) (test 13 U/L 6-55 aeit=529) EGFR (BEAKER) (test 33 mL/min/1.73 sq m ESTIMATED GFR IS NOT cyyz=1265) ACCURATE CREATININE CLEARANCE IN PREDICTING GLOMERULAR FILTRATION RATE. ESTIMATED GFR IS NOT APPLICABLE FOR DIALYSIS PATIENTS. Specimen slightly ictericPOCT-GLUCOSE [id number] 07:53:00 Test Item Value Reference Range Comments POC-GLUCOSE METER (BEAKER) 157 mg/dL 70-110 TESTED AT [address] (test ewhf=9953) [facility] [address] CBC (HEMOGRAM ONLY)2019-05-31 06:33:00 Test Item Value Reference Range Comments WHITE BLOOD CELL COUNT (BEAKER) (test lihw=821) 5.7 K/ L 3.5-10.5 RED BLOOD CELL COUNT (BEAKER) (test ziji=107) 3.25 M/ L 3.93-5.22 HEMOGLOBIN (BEAKER) (test ozje=804) 8.9 GM/DL 11.2-15.7 HEMATOCRIT (BEAKER) (test wnob=649) 28.3 % 34.1-44.9 MEAN CORPUSCULAR VOLUME (BEAKER) (test krcu=865) 87.1 fL 79.4-94.8 MEAN CORPUSCULAR HEMOGLOBIN (BEAKER) (test 27.4 pg 25.6-32.2 szfb=085) MEAN CORPUSCULAR HEMOGLOBIN CONC (BEAKER) (test 31.4 GM/DL 32.2-35.5 pxyi=820) RED CELL DISTRIBUTION WIDTH (BEAKER) (test 17.5 % 11.7-14.4 cugu=680) PLATELET COUNT (BEAKER) (test qimp=412) 188 K/CU MM 150-450 MEAN PLATELET VOLUME (BEAKER) (test fhki=251) 9.1 fL 9.4-12.3 NUCLEATED RED BLOOD CELLS (BEAKER) (test 0 /100 WBC 0-0 qgge=302) POCT-GLUCOSE [id number] 22:28:00 Test Item Value Reference Range Comments POC-GLUCOSE METER (BEAKER) 193 mg/dL 70-110 TESTED AT [address] (test blqz=8507) [facility] [address] POCT-GLUCOSE [id number] 17:19:00 Test Item Value Reference Range Comments POC-GLUCOSE METER (BEAKER) 155 mg/dL 70-110 TESTED AT [address] (test uvys=9966) [facility] [address] POCT-GLUCOSE [id number] 12:44:00 Test Item Value Reference Range Comments POC-GLUCOSE METER (BEAKER) 189 mg/dL 70-[address] [facility] [address] [facility] (test rhta=7757) [facility] [address] POCT-GLUCOSE [id number] 08:30:00 Test Item Value Reference Range Comments POC-GLUCOSE METER (BEAKER) 140 mg/dL 70-[address] [facility] [address] [facility] (test zitg=7126) [facility] [address] [id number] 05:15:00 Test Item Value Reference Range Comments THYROID STIMULATING HORMONE (BEAKER) (test 6.32 uIU/mL 0.35-4.94 vqmp=448) T4, [id number] 05:11:00 Test Item Value Reference Range Comments FREE T4 (BEAKER) (test vgdl=767) 1.70 ng/dL 0.70-1.48 [id number] 04:53:00 Test Item Value Reference Range Comments PHOSPHORUS (BEAKER) (test zxlw=888) 2.4 mg/dL 2.3-4.7 [id number] 04:53:00 Test Item Value Reference Range Comments MAGNESIUM (BEAKER) (test thng=297) 1.8 mg/dL 1.6-2.6 COMPREHENSIVE METABOLIC [id number] 04:53:00 Test Item Value Reference Range Comments TOTAL PROTEIN (BEAKER) 5.1 gm/dL 6.0-8.3 (test kbab=593) ALBUMIN (BEAKER) (test 2.9 g/dL 3.5-5.0 kjoy=6209) ALKALINE PHOSPHATASE 101 U/L 40-150 (BEAKER) (test jqos=583) BILIRUBIN TOTAL (BEAKER) 1.6 mg/dL 0.2-1.2 (test hlvu=265) SODIUM (BEAKER) (test 137 meq/L 136-145 sjte=657) POTASSIUM (BEAKER) (test 3.7 meq/L 3.5-5.1 qcbf=546) CHLORIDE (BEAKER) (test 99 meq/L 98-107 evxg=155) CO2 (BEAKER) (test 32 meq/L 22-29 zfmr=016) BLOOD UREA NITROGEN 20 mg/dL 7-21 (BEAKER) (test xyke=984) CREATININE (BEAKER) (test 1.55 mg/dL 0.57-1.25 xmup=757) GLUCOSE RANDOM (BEAKER) 157 mg/dL 70-105 (test fpyy=696) CALCIUM (BEAKER) (test 8.3 mg/dL 8.4-10.2 iowo=825) AST (SGOT) (BEAKER) (test 33 U/L 5-34 qpah=493) ALT (SGPT) (BEAKER) (test 12 U/L 6-55 sqfj=709) EGFR (BEAKER) (test 34 mL/min/1.73 sq m ESTIMATED GFR IS NOT cbue=2022) ACCURATE CREATININE CLEARANCE IN PREDICTING GLOMERULAR FILTRATION RATE. ESTIMATED GFR IS NOT APPLICABLE FOR DIALYSIS PATIENTS. CBC (HEMOGRAM ONLY)2019-05-30 04:13:00 Test Item Value Reference Range Comments WHITE BLOOD CELL COUNT (BEAKER) (test kvqa=449) 5.3 K/ L 3.5-10.5 RED BLOOD CELL COUNT (BEAKER) (test gefu=720) 2.75 M/ L 3.93-5.22 HEMOGLOBIN (BEAKER) (test zwzy=606) 7.6 GM/DL 11.2-15.7 HEMATOCRIT (BEAKER) (test xakr=679) 24.2 % 34.1-44.9 MEAN CORPUSCULAR VOLUME (BEAKER) (test lbjl=082) 88.0 fL 79.4-94.8 MEAN CORPUSCULAR HEMOGLOBIN (BEAKER) (test 27.6 pg 25.6-32.2 wpyq=795) MEAN CORPUSCULAR HEMOGLOBIN CONC (BEAKER) (test 31.4 GM/DL 32.2-35.5 ltea=084) RED CELL DISTRIBUTION WIDTH (BEAKER) (test 17.4 % 11.7-14.4 irnw=015) PLATELET COUNT (BEAKER) (test utus=560) 162 K/CU MM 150-450 MEAN PLATELET VOLUME (BEAKER) (test zdcv=296) 9.2 fL 9.4-12.3 NUCLEATED RED BLOOD CELLS (BEAKER) (test 0 /100 WBC 0-0 gany=287) CALCIUM, [id number] 04:13:00 Test Item Value Reference Range Comments CALCIUM IONIZED (BEAKER) (test seny=327) 0.98 mmol/L 1.12-1.27 PH, BLOOD (BEAKER) (test oyqa=7995) 7.58 RAD, CHEST, 2 [id number] 23:47:00Reason for exam:->opacitiesFINAL REPORT Portable chest. HISTORY: [...] MDReport Verified Date/Time: 05/29/2019 23:47:08 Reading Location: [address] Consult Reading Room POCT-GLUCOSE [id number] 23:12:00 Test Item Value Reference Range Comments POC-GLUCOSE METER (BEAKER) 192 mg/dL 70-110 TESTED AT [address] (test fxmt=8335) [facility] [address] URINALYSIS W/ [id number] 18:14:00 Test Item Value Reference Range Comments COLOR (BEAKER) (test agyu=811) Yellow CLARITY (BEAKER) (test oboz=376) Clear SPECIFIC GRAVITY UA (BEAKER) (test 1.011 1.001-1.035 vryk=474) PH UA (BEAKER) (test ljdd=600) 8.5 5.0-8.0 PROTEIN UA (BEAKER) (test fixl=827) 20 mg/dL Negative GLUCOSE UA (BEAKER) (test ngjd=309) Negative Negative KETONES UA (BEAKER) (test mhok=048) Negative Negative BILIRUBIN UA (BEAKER) (test wbdk=938) Negative Negative BLOOD UA (BEAKER) (test wpeg=535) Negative Negative NITRITE UA (BEAKER) (test lnas=327) Negative Negative LEUKOCYTE ESTERASE UA (BEAKER) (test Negative Negative gffm=308) UROBILINOGEN UA (BEAKER) (test swhc=241) 12.0 mg/dL 0.2-1.0 RBC UA (BEAKER) (test dppv=997) < /HPF WBC UA (BEAKER) (test ircf=758) 1 /HPF BACTERIA (BEAKER) (test kuqd=567) Rare SQUAMOUS EPITHELIAL (BEAKER) (test 3 /HPF vmym=187) SOURCE(BEAKER) (test uuec=3799) Urine, Clean Catch POCT-GLUCOSE [id number] 16:55:00 Test Item Value Reference Range Comments POC-GLUCOSE METER (BEAKER) 186 mg/dL 70-110 TESTED AT [address] (test cxtt=7701) [facility] [address] TISSUE [id number] 15:15:00Surgical Pathology Report Case: [id number] Authorizing Provider: Shannen Giron MD Collected: 05/28/2019 1448 Ordering Location: [address] Received: 05/29/2019 0915 Service Pathologist: Padilla Reed MD Specimen: Polyp, Colon - Right/Ascending, taken by doug pathak PART A RIGHT ASCENDING COLON POLYP, POLYPECTOMY:TUBULAR ADENOMA. Signing Pathologist Direct Phone Line: [phone] signed by Padilla Reed MD on 05/29/2019 at 3:15 [id number] colonoscopyRight ascending colonReceived in formalin, labelled with the patients name, date of , and medical record number and labelled "right ascending colon polyp" are three portions of silva tissue measuring 0.5 x 0.4 x 0.3 cm in aggregate. Submitted in toto in one cassette. Performed.BODY FLUID CULTURE + GRAM [id number] 12:56:00 Test Item Value Reference Range Comments CULTURE (BEAKER) (test hsmi=7807) No growth GRAM STAIN RESULT (BEAKER) (test No WBCs hruj=2328) GRAM STAIN RESULT (BEAKER) (test No organisms seen uibr=05925) POCT-GLUCOSE [id number] 12:37:00 Test Item Value Reference Range Comments POC-GLUCOSE METER (BEAKER) 154 mg/dL 70-110 TESTED AT [address] (test azeh=7578) [place] [id number] POCT-GLUCOSE [id number] 09:12:00 Test Item Value Reference Range Comments POC-GLUCOSE METER (BEAKER) 76 mg/dL 70-110 TESTED AT [address] (test ugwm=9044) [facility] [address] COMPREHENSIVE METABOLIC [id number] 08:19:00 Test Item Value Reference Range Comments TOTAL PROTEIN (BEAKER) 4.9 gm/dL 6.0-8.3 (test tnzy=407) ALBUMIN (BEAKER) (test 3.0 g/dL 3.5-5.0 yxpa=8992) ALKALINE PHOSPHATASE 88 U/L 40-150 (BEAKER) (test dnzr=377) BILIRUBIN TOTAL (BEAKER) 1.9 mg/dL 0.2-1.2 (test zuvc=148) SODIUM (BEAKER) (test 141 meq/L 136-145 eccp=036) POTASSIUM (BEAKER) (test 3.5 meq/L 3.5-5.1 vwgt=539) CHLORIDE (BEAKER) (test 100 meq/L 98-107 htra=654) CO2 (BEAKER) (test 34 meq/L 22-29 vtsd=780) BLOOD UREA NITROGEN 18 mg/dL 7-21 (BEAKER) (test hdcs=739) CREATININE (BEAKER) (test 1.50 mg/dL 0.57-1.25 oxtb=074) GLUCOSE RANDOM (BEAKER) 92 mg/dL 70-105 (test tfis=582) CALCIUM (BEAKER) (test 8.5 mg/dL 8.4-10.2 bdvp=191) AST (SGOT) (BEAKER) (test 27 U/L 5-34 hupc=202) ALT (SGPT) (BEAKER) (test 10 U/L 6-55 wzyl=272) EGFR (BEAKER) (test 35 mL/min/1.73 sq m ESTIMATED GFR IS NOT ixot=9606) ACCURATE CREATININE CLEARANCE IN PREDICTING GLOMERULAR FILTRATION RATE. ESTIMATED GFR IS NOT APPLICABLE FOR DIALYSIS PATIENTS. Specimen slightly [id number] 08:18:00 Test Item Value Reference Range Comments PHOSPHORUS (BEAKER) (test zuon=687) 2.8 mg/dL 2.3-4.7 [id number] 08:18:00 Test Item Value Reference Range Comments MAGNESIUM (BEAKER) (test uwur=189) 2.0 mg/dL 1.6-2.6 CBC W/PLT COUNT & AUTO [id number] 05:59:00 Test Item Value Reference Range Comments WHITE BLOOD CELL COUNT (BEAKER) (test cxwo=025) 5.3 K/ L 3.5-10.5 RED BLOOD CELL COUNT (BEAKER) (test wzvp=536) 2.79 M/ L 3.93-5.22 HEMOGLOBIN (BEAKER) (test pxdy=957) 7.7 GM/DL 11.2-15.7 HEMATOCRIT (BEAKER) (test vdke=074) 24.8 % 34.1-44.9 MEAN CORPUSCULAR VOLUME (BEAKER) (test nxxg=178) 88.9 fL 79.4-94.8 MEAN CORPUSCULAR HEMOGLOBIN (BEAKER) (test 27.6 pg 25.6-32.2 bygm=834) MEAN CORPUSCULAR HEMOGLOBIN CONC (BEAKER) (test 31.0 GM/DL 32.2-35.5 jkdm=004) RED CELL DISTRIBUTION WIDTH (BEAKER) (test 17.6 % 11.7-14.4 ammj=288) PLATELET COUNT (BEAKER) (test droz=813) 146 K/CU MM 150-450 MEAN PLATELET VOLUME (BEAKER) (test lmgw=911) 9.6 fL 9.4-12.3 NUCLEATED RED BLOOD CELLS (BEAKER) (test 0 /100 WBC 0-0 blwz=144) NEUTROPHILS RELATIVE PERCENT (BEAKER) (test 46 % xkge=110) LYMPHOCYTES RELATIVE PERCENT (BEAKER) (test 31 % gkgp=018) MONOCYTES RELATIVE PERCENT (BEAKER) (test 11 % qdvi=423) EOSINOPHILS RELATIVE PERCENT (BEAKER) (test 10 % jbif=281) BASOPHILS RELATIVE PERCENT (BEAKER) (test 2 % jzsz=392) NEUTROPHILS ABSOLUTE COUNT (BEAKER) (test 2.46 K/ L 1.56-6.13 mxlv=453) LYMPHOCYTES ABSOLUTE COUNT (BEAKER) (test 1.66 K/ L 1.18-3.74 oslq=937) MONOCYTES ABSOLUTE COUNT (BEAKER) (test 0.57 K/ L 0.24-0.36 vijq=768) EOSINOPHILS ABSOLUTE COUNT (BEAKER) (test 0.52 K/ L 0.04-0.36 ijkf=048) BASOPHILS ABSOLUTE COUNT (BEAKER) (test 0.08 K/ L 0.01-0.08 osmj=841) IMMATURE GRANULOCYTES-RELATIVE PERCENT (BEAKER) 0 % 0-1 (test spjs=3013) CALCIUM, [id number] 05:04:00 Test Item Value Reference Range Comments CALCIUM IONIZED (BEAKER) (test xtwh=320) 1.02 mmol/L 1.12-1.27 PH, BLOOD (BEAKER) (test fgrv=2924) 7.50 POCT-GLUCOSE [id number] 21:27:00 Test Item Value Reference Range Comments POC-GLUCOSE METER (BEAKER) 139 mg/dL 70-110 TESTED AT [address] (test qqas=0176) [place] [address] BASIC METABOLIC [id number] 18:28:00 Test Item Value Reference Range Comments SODIUM (BEAKER) (test 142 meq/L 136-145 yrcp=577) POTASSIUM (BEAKER) (test 3.5 meq/L 3.5-5.1 qsxu=215) CHLORIDE (BEAKER) (test 99 meq/L 98-107 nsro=139) CO2 (BEAKER) (test 37 meq/L 22-29 dpqn=014) BLOOD UREA NITROGEN 17 mg/dL 7-21 (BEAKER) (test spzw=147) CREATININE (BEAKER) (test 1.38 mg/dL 0.57-1.25 lwqv=855) GLUCOSE RANDOM (BEAKER) 78 mg/dL 70-105 (test dlfc=777) CALCIUM (BEAKER) (test 8.5 mg/dL 8.4-10.2 luzj=982) EGFR (BEAKER) (test 39 mL/min/1.73 sq m ESTIMATED GFR IS NOT zbfv=2319) ACCURATE CREATININE CLEARANCE IN PREDICTING GLOMERULAR FILTRATION RATE. ESTIMATED GFR IS NOT APPLICABLE FOR DIALYSIS PATIENTS. Call [id number] with resultsSpecimen slightly ictericPOCT-GLUCOSE [id number] 18:10:00 Test Item Value Reference Range Comments POC-GLUCOSE METER (BEAKER) 82 mg/dL 70-110 TESTED AT [address] (test gawa=9559) [place] [id number] CBC W/PLT COUNT & AUTO [id number] 11:56:00 Test Item Value Reference Range Comments WHITE BLOOD CELL COUNT (BEAKER) (test adqr=432) 5.0 K/ L 3.5-10.5 RED BLOOD CELL COUNT (BEAKER) (test xafq=445) 2.82 M/ L 3.93-5.22 HEMOGLOBIN (BEAKER) (test fvmn=587) 7.9 GM/DL 11.2-15.7 HEMATOCRIT (BEAKER) (test akze=908) 25.0 % 34.1-44.9 MEAN CORPUSCULAR VOLUME (BEAKER) (test omjz=820) 88.7 fL 79.4-94.8 MEAN CORPUSCULAR HEMOGLOBIN (BEAKER) (test 28.0 pg 25.6-32.2 dqiw=053) MEAN CORPUSCULAR HEMOGLOBIN CONC (BEAKER) (test 31.6 GM/DL 32.2-35.5 wdma=297) RED CELL DISTRIBUTION WIDTH (BEAKER) (test 17.6 % 11.7-14.4 jmup=784) PLATELET COUNT (BEAKER) (test cxpn=056) 155 K/CU MM 150-450 MEAN PLATELET VOLUME (BEAKER) (test yaqi=954) 9.5 fL 9.4-12.3 NUCLEATED RED BLOOD CELLS (BEAKER) (test 0 /100 WBC 0-0 jfdj=681) (CELLAVISION MANUAL DIFF)2019-05-28 11:56:00 Test Item Value Reference Range Comments NEUTROPHILS - REL (CELLAVISION)(BEAKER) (test 69 % edqf=7385) LYMPHOCYTES - REL (CELLAVISION)(BEAKER) (test 21 % vqgt=6251) MONOCYTES - REL (CELLAVISION)(BEAKER) (test 3 % apzv=7033) EOSINOPHILS - REL (CELLAVISION)(BEAKER) (test 5 % gydo=5985) BASOPHILS - REL (CELLAVISION)(BEAKER) (test 1 % qgag=4500) MYELOCYTES - REL (CELLAVISION)(BEAKER) (test 1 % 0-0 vqbt=5808) NEUTROPHILS - ABS (CELLAVISION)(BEAKER) (test 3.45 K/ul 1.56-6.13 ufbh=1288) LYMPHOCYTES - ABS (CELLAVISION)(BEAKER) (test 1.05 K/ul 1.18-3.74 eylx=6722) MONOCYTES - ABS (CELLAVISION)(BEAKER) (test 0.15 K/uL 0.24-0.36 hjzd=0987) EOSINOPHILS - ABS (CELLAVISION)(BEAKER) (test 0.25 K/uL 0.04-0.36 nsww=8242) BASOPHILS - ABS (CELLAVISION)(BEAKER) (test 0.05 K/uL 0.01-0.08 fina=8417) MYELOCYTES-ABS (CELLAVISION)(BEAKER) (test 0.05 K/uL 0.00-0.00 cdoo=9548) TOTAL COUNTED (BEAKER) (test zcym=2227) 100 PLT MORPHOLOGY (BEAKER) (test rwmh=744) Normal SMUDGE CELLS (BEAKER) (test pqma=8630) Present POLYCHROMATOPHILLIC RBCS(BEAKER) (test emhw=740) 1+ few ANISOCYTOSIS (BEAKER) (test xvyl=032) 2+ moderate MICROCYTES (BEAKER) (test xzic=492) 2+ moderate POIKILOCYTES (BEAKER) (test eblc=092) 1+ few SPHEROCYTES (BEAKER) (test bdjq=156) 1+ few PLATELET CONCENTRATION (CELLAVISION)(BEAKER) Adequate (test qpwp=1875) Received comment: User comments: Slide comments:POCT-GLUCOSE [id number] 10: 05:00 Test Item Value Reference Range Comments POC-GLUCOSE METER (BEAKER) 82 mg/dL 70-110 TESTED AT [address] (test pjsr=9182) [facility] [address] POCT-GLUCOSE [id number] 09:07:00 Test Item Value Reference Range Comments POC-GLUCOSE METER (BEAKER) 84 mg/dL 70-110 TESTED AT [address] (test vkuq=1584) [facility] [address] [id number] 06:31:00 Test Item Value Reference Range Comments PHOSPHORUS (BEAKER) (test ojxe=592) 2.5 mg/dL 2.3-4.7 [id number] 06:31:00 Test Item Value Reference Range Comments MAGNESIUM (BEAKER) (test aybk=337) 1.7 mg/dL 1.6-2.6 COMPREHENSIVE METABOLIC [id number] 06:31:00 Test Item Value Reference Range Comments TOTAL PROTEIN (BEAKER) 4.9 gm/dL 6.0-8.3 (test pgaz=452) ALBUMIN (BEAKER) (test 3.1 g/dL 3.5-5.0 fqdy=7072) ALKALINE PHOSPHATASE 82 U/L 40-150 (BEAKER) (test gpvz=321) BILIRUBIN TOTAL (BEAKER) 2.3 mg/dL 0.2-1.2 (test vdzl=233) SODIUM (BEAKER) (test 143 meq/L 136-145 jgum=769) POTASSIUM (BEAKER) (test 3.5 meq/L 3.5-5.1 renw=103) CHLORIDE (BEAKER) (test 100 meq/L 98-107 hoyc=272) CO2 (BEAKER) (test 37 meq/L 22-29 imwr=091) BLOOD UREA NITROGEN 16 mg/dL 7-21 (BEAKER) (test ctea=986) CREATININE (BEAKER) (test 1.37 mg/dL 0.57-1.25 iyui=064) GLUCOSE RANDOM (BEAKER) 96 mg/dL 70-105 (test zusf=718) CALCIUM (BEAKER) (test 8.6 mg/dL 8.4-10.2 qfvt=882) AST (SGOT) (BEAKER) (test 30 U/L 5-34 caay=480) ALT (SGPT) (BEAKER) (test 10 U/L 6-55 hyut=211) EGFR (BEAKER) (test 39 mL/min/1.73 sq m ESTIMATED GFR IS NOT xuvg=4762) ACCURATE CREATININE CLEARANCE IN PREDICTING GLOMERULAR FILTRATION RATE. ESTIMATED GFR IS NOT APPLICABLE FOR DIALYSIS PATIENTS. Specimen slightly ictericB-TYPE NATRIURETIC FACTOR (BNP)2019-05-28 06:19:00 Test Item Value Reference Range Comments B-TYPE NATRIURETIC PEPTIDE (BEAKER) (test 381 pg/mL 0-100 tubq=743) CALCIUM, [id number] 05:25:00 Test Item Value Reference Range Comments CALCIUM IONIZED (BEAKER) (test osrm=667) 1.03 mmol/L 1.12-1.27 PH, BLOOD (BEAKER) (test apsb=6807) 7.49 POCT-GLUCOSE [id number] 22:42:00 Test Item Value Reference Range Comments POC-GLUCOSE METER (BEAKER) 174 mg/dL 70-110 TESTED AT [address] (test zvah=6212) [facility] [address] [id number] 17:57:00 Test Item Value Reference Range Comments SODIUM (BEAKER) (test zezx=152) 140 meq/L 136-145 POTASSIUM (BEAKER) (test 3.9 meq/L 3.5-5.1 Specimen slightly hemolyzed iidy=784) CHLORIDE (BEAKER) (test 99 meq/L 98-107 ehdm=323) CO2 (BEAKER) (test cvhs=434) 35 meq/L 22-29 Call [id number] 17:50:00 Test Item Value Reference Range Comments POC-GLUCOSE METER (BEAKER) 151 mg/dL 70-110 TESTED AT [address] (test qnne=2423) [place] [address] POCT-GLUCOSE [id number] 12:36:00 Test Item Value Reference Range Comments POC-GLUCOSE METER (BEAKER) 123 mg/dL 70-110 TESTED AT [address] (test cjpo=9751) [place] [address] POCT-GLUCOSE [id number] 08:15:00 Test Item Value Reference Range Comments POC-GLUCOSE METER (BEAKER) 121 mg/dL 70-110 TESTED AT [address] (test lkru=8140) [place] [address] [id number] 07:00:00 Test Item Value Reference Range Comments PHOSPHORUS (BEAKER) (test vsel=611) 1.9 mg/dL 2.3-4.7 [id number] 07:00:00 Test Item Value Reference Range Comments MAGNESIUM (BEAKER) (test pcur=095) 1.6 mg/dL 1.6-2.6 COMPREHENSIVE METABOLIC [id number] 07:00:00 Test Item Value Reference Range Comments TOTAL PROTEIN (BEAKER) 4.9 gm/dL 6.0-8.3 (test aqdo=146) ALBUMIN (BEAKER) (test 3.1 g/dL 3.5-5.0 pwjz=4183) ALKALINE PHOSPHATASE 75 U/L 40-150 (BEAKER) (test znzv=599) BILIRUBIN TOTAL (BEAKER) 1.9 mg/dL 0.2-1.2 (test gvtm=470) SODIUM (BEAKER) (test 139 meq/L 136-145 jvju=167) POTASSIUM (BEAKER) (test 4.3 meq/L 3.5-5.1 tsuq=591) CHLORIDE (BEAKER) (test 99 meq/L 98-107 cccy=695) CO2 (BEAKER) (test 37 meq/L 22-29 knrj=282) BLOOD UREA NITROGEN 16 mg/dL 7-21 (BEAKER) (test ymlp=944) CREATININE (BEAKER) (test 1.29 mg/dL 0.57-1.25 ppft=540) GLUCOSE RANDOM (BEAKER) 139 mg/dL 70-105 (test mykn=727) CALCIUM (BEAKER) (test 8.5 mg/dL 8.4-10.2 xehd=830) AST (SGOT) (BEAKER) (test 23 U/L 5-34 kpib=496) ALT (SGPT) (BEAKER) (test 8 U/L 6-55 griq=103) EGFR (BEAKER) (test 42 mL/min/1.73 sq m ESTIMATED GFR IS NOT vbla=4318) ACCURATE CREATININE CLEARANCE IN PREDICTING GLOMERULAR FILTRATION RATE. ESTIMATED GFR IS NOT APPLICABLE FOR DIALYSIS PATIENTS. Specimen slightly ictericCBC W/PLT COUNT & AUTO [id number] 06:20 :00 Test Item Value Reference Range Comments WHITE BLOOD CELL COUNT (BEAKER) (test vhxw=687) 4.7 K/ L 3.5-10.5 RED BLOOD CELL COUNT (BEAKER) (test cfby=725) 2.71 M/ L 3.93-5.22 HEMOGLOBIN (BEAKER) (test kula=182) 7.5 GM/DL 11.2-15.7 HEMATOCRIT (BEAKER) (test jamw=283) 23.9 % 34.1-44.9 MEAN CORPUSCULAR VOLUME (BEAKER) (test jovh=685) 88.2 fL 79.4-94.8 MEAN CORPUSCULAR HEMOGLOBIN (BEAKER) (test 27.7 pg 25.6-32.2 crqy=977) MEAN CORPUSCULAR HEMOGLOBIN CONC (BEAKER) (test 31.4 GM/DL 32.2-35.5 omwb=293) RED CELL DISTRIBUTION WIDTH (BEAKER) (test 17.6 % 11.7-14.4 mggj=098) PLATELET COUNT (BEAKER) (test sgsy=612) 137 K/CU MM 150-450 MEAN PLATELET VOLUME (BEAKER) (test kwqt=275) 9.6 fL 9.4-12.3 NUCLEATED RED BLOOD CELLS (BEAKER) (test 0 /100 WBC 0-0 mozz=467) NEUTROPHILS RELATIVE PERCENT (BEAKER) (test 45 % oqav=139) LYMPHOCYTES RELATIVE PERCENT (BEAKER) (test 33 % xavn=885) MONOCYTES RELATIVE PERCENT (BEAKER) (test 12 % qlpp=674) EOSINOPHILS RELATIVE PERCENT (BEAKER) (test 9 % uqzx=567) BASOPHILS RELATIVE PERCENT (BEAKER) (test 1 % thbo=268) NEUTROPHILS ABSOLUTE COUNT (BEAKER) (test 2.13 K/ L 1.56-6.13 hmnc=239) LYMPHOCYTES ABSOLUTE COUNT (BEAKER) (test 1.56 K/ L 1.18-3.74 ldkp=163) MONOCYTES ABSOLUTE COUNT (BEAKER) (test 0.57 K/ L 0.24-0.36 tsuv=738) EOSINOPHILS ABSOLUTE COUNT (BEAKER) (test 0.41 K/ L 0.04-0.36 bxyf=419) BASOPHILS ABSOLUTE COUNT (BEAKER) (test 0.05 K/ L 0.01-0.08 vbsv=627) IMMATURE GRANULOCYTES-RELATIVE PERCENT (BEAKER) 0 % 0-1 (test cvkw=3092) CALCIUM, [id number] 05:29:00 Test Item Value Reference Range Comments CALCIUM IONIZED (BEAKER) (test wgzq=314) 1.02 mmol/L 1.12-1.27 PH, BLOOD (BEAKER) (test cztk=5391) 7.53 POCT-GLUCOSE [id number] 22:13:00 Test Item Value Reference Range Comments POC-GLUCOSE METER (BEAKER) 315 mg/dL 70-110 Notified ALEXI ENNIS/TESTED AT [facility] (test adek=3526) [address] [facility] [address] POCT-GLUCOSE [id number] 18:43:00 Test Item Value Reference Range Comments POC-GLUCOSE METER (BEAKER) 204 mg/dL 70-110 TESTED AT [address] (test ikho=6545) [facility] [address] U/S, [id number] 17:14:00Reason for exam:->ascitesFINAL REPORT Ultrasound guided paracentesis. Clinical History: Ascites. Sedation: None. Operators: This procedure was performed by SARIKA Lee under direct supervision of Akil Chung M.D. Magneto Repairer: None. Estimated Blood Loss: < 1 cc. [...] was achieved with 2% lidocaine, a 5 Indian one-step catheter was advanced into the peritoneal cavity under ultrasound guidance. After completion of drainage, the catheter was removed. There was no evidence of complication. Impression:Successful ultrasound guided paracentesis. Signed: Akil Chung MDReport Verified Date/Time: 05/26/2019 17:14:25 Reading Location : [address] Ultrasound Reading Room U/S, [id number] 17:12:00Reason for exam:->ascitesFINAL REPORT Ultrasound guided paracentesis Clinical History: Ascites. Sedation: None. Windows Systems Architect: Micheline Pena PA-C Supervising Physician: Shravan Ruiz MD Magneto Repairer: None. Estimated Blood Loss: < 1 mL. [...] anesthesia was achieved with lidocaine, a 5 Indian one-step catheter was advanced into theperitoneal cavity under ultrasound guidance. After completion of drainage, the catheter was removed.There was no evidence of complication. Impression:Successful ultrasound guided paracentesis. Signed:Shravan Ruiz Verified Date/Time: 05/26/2019 17:12:51 Reading Location: [address] Ultrasound Reading Room POCT-GLUCOSE [id number] 17:02: 00 Test Item Value Reference Range Comments POC-GLUCOSE METER (BEAKER) 204 mg/dL 70-110 TESTED AT [address] (test oehu=4467) [place] [address] POCT-GLUCOSE [id number] 13:52:00 Test Item Value Reference Range Comments POC-GLUCOSE METER (BEAKER) 185 mg/dL 70-110 TESTED AT [address] (test dzng=4422) [place] [address] BODY FLUID CELL COUNT WITH [id number] 13:12:00 Test Item Value Reference Range Comments APPEARANCE FLUID (BEAKER) (test ubsp=557) Slightly Hazy Clear COLOR FLUID (BEAKER) (test utkm=878) Yellow Colorless, Straw RBC FLUID (BEAKER) (test xzxc=300) 3000 /cu mm <=1 ADJUSTED WBC FLUID (BEAKER) (test mkip=2608) 107 /cu mm <=5 LINING CELLS (BEAKER) (test ygzp=5792) 13 /cu mm <=1 NEUTROPHILS FLUID (BEAKER) (test nyuq=6023) 0 % LYMPHS FLUID (BEAKER) (test dwoc=166) 21 % MONO/MACROPHAGE FLUID (BEAKER) (test 78 % hyoo=553) EOSINOPHILS FLUID (BEAKER) (test iuck=671) 1 % BASO FLUID (BEAKER) (test grcp=867) 0 % CONTAINER BODY FLUID (BEAKER) (test EDTA Tube lyuu=0885) POCT-GLUCOSE [id number] 08:40:00 Test Item Value Reference Range Comments POC-GLUCOSE METER (BEAKER) 113 mg/dL 70-110 TESTED AT [address] (test bnmi=1936) [place] [address] [id number] 07:18:00 Test Item Value Reference Range Comments T3 TOTAL (BEAKER) (test 34 ng/dL 48-159 Performed at [facility]. Refer. kjav=639) Range:76-181 [id number] 05:45:00 Test Item Value Reference Range Comments PHOSPHORUS (BEAKER) (test hvml=939) 1.7 mg/dL 2.3-4.7 [id number] 05:45:00 Test Item Value Reference Range Comments MAGNESIUM (BEAKER) (test hyrt=785) 1.8 mg/dL 1.6-2.6 COMPREHENSIVE METABOLIC [id number] 05:45:00 Test Item Value Reference Range Comments TOTAL PROTEIN (BEAKER) 5.1 gm/dL 6.0-8.3 (test javz=612) ALBUMIN (BEAKER) (test 3.1 g/dL 3.5-5.0 rtbt=6550) ALKALINE PHOSPHATASE 88 U/L 40-150 (BEAKER) (test orsw=949) BILIRUBIN TOTAL (BEAKER) 1.6 mg/dL 0.2-1.2 (test igup=409) SODIUM (BEAKER) (test 140 meq/L 136-145 sigf=995) POTASSIUM (BEAKER) (test 3.8 meq/L 3.5-5.1 erjh=624) CHLORIDE (BEAKER) (test 100 meq/L 98-107 qlav=303) CO2 (BEAKER) (test 36 meq/L 22-29 xnah=399) BLOOD UREA NITROGEN 16 mg/dL 7-21 (BEAKER) (test ukny=593) CREATININE (BEAKER) (test 1.37 mg/dL 0.57-1.25 txkp=286) GLUCOSE RANDOM (BEAKER) 159 mg/dL 70-105 (test ebqy=061) CALCIUM (BEAKER) (test 8.4 mg/dL 8.4-10.2 xwjo=599) AST (SGOT) (BEAKER) (test 26 U/L 5-34 uqpn=345) ALT (SGPT) (BEAKER) (test 10 U/L 6-55 ocnl=416) EGFR (BEAKER) (test 39 mL/min/1.73 sq m ESTIMATED GFR IS NOT dihp=3029) ACCURATE CREATININE CLEARANCE IN PREDICTING GLOMERULAR FILTRATION RATE. ESTIMATED GFR IS NOT APPLICABLE FOR DIALYSIS PATIENTS. CALCIUM, [id number] 05:11:00 Test Item Value Reference Range Comments CALCIUM IONIZED (BEAKER) (test jctk=931) 0.99 mmol/L 1.12-1.27 PH, BLOOD (BEAKER) (test qijy=1795) 7.57 CBC W/PLT COUNT & AUTO [id number] 05:04:00 Test Item Value Reference Range Comments WHITE BLOOD CELL COUNT (BEAKER) (test oyok=870) 4.6 K/ L 3.5-10.5 RED BLOOD CELL COUNT (BEAKER) (test ymwp=902) 2.81 M/ L 3.93-5.22 HEMOGLOBIN (BEAKER) (test ievl=008) 7.8 GM/DL 11.2-15.7 HEMATOCRIT (BEAKER) (test jqzr=777) 24.6 % 34.1-44.9 MEAN CORPUSCULAR VOLUME (BEAKER) (test mdwb=974) 87.5 fL 79.4-94.8 MEAN CORPUSCULAR HEMOGLOBIN (BEAKER) (test 27.8 pg 25.6-32.2 uick=477) MEAN CORPUSCULAR HEMOGLOBIN CONC (BEAKER) (test 31.7 GM/DL 32.2-35.5 kqop=538) RED CELL DISTRIBUTION WIDTH (BEAKER) (test 17.2 % 11.7-14.4 rsdc=778) PLATELET COUNT (BEAKER) (test rbus=914) 129 K/CU MM 150-450 MEAN PLATELET VOLUME (BEAKER) (test zoxi=398) 9.0 fL 9.4-12.3 NUCLEATED RED BLOOD CELLS (BEAKER) (test 0 /100 WBC 0-0 zfms=737) NEUTROPHILS RELATIVE PERCENT (BEAKER) (test 47 % gyqx=759) LYMPHOCYTES RELATIVE PERCENT (BEAKER) (test 29 % gwno=641) MONOCYTES RELATIVE PERCENT (BEAKER) (test 13 % skxp=611) EOSINOPHILS RELATIVE PERCENT (BEAKER) (test 11 % snom=460) BASOPHILS RELATIVE PERCENT (BEAKER) (test 1 % utkg=784) NEUTROPHILS ABSOLUTE COUNT (BEAKER) (test 2.17 K/ L 1.56-6.13 pcdl=015) LYMPHOCYTES ABSOLUTE COUNT (BEAKER) (test 1.32 K/ L 1.18-3.74 uqby=562) MONOCYTES ABSOLUTE COUNT (BEAKER) (test 0.58 K/ L 0.24-0.36 ahpx=054) EOSINOPHILS ABSOLUTE COUNT (BEAKER) (test 0.49 K/ L 0.04-0.36 zzuy=096) BASOPHILS ABSOLUTE COUNT (BEAKER) (test 0.06 K/ L 0.01-0.08 pnln=916) IMMATURE GRANULOCYTES-RELATIVE PERCENT (BEAKER) 0 % 0-1 (test ulsk=3904) POCT-GLUCOSE [id number] 23:10:00 Test Item Value Reference Range Comments POC-GLUCOSE METER (BEAKER) 239 mg/dL 70-110 TESTED AT [address] (test urdh=2664) [place] [address] [id number] 19:02:00 Test Item Value Reference Range Comments SODIUM (BEAKER) (test ixgg=135) 138 meq/L 136-145 POTASSIUM (BEAKER) (test dqrk=802) 3.7 meq/L 3.5-5.1 CHLORIDE (BEAKER) (test juas=193) 100 meq/L 98-107 CO2 (BEAKER) (test peoz=708) 31 meq/L 22-29 Call [id number] with resultsPOCT-GLUCOSE [id number] 16:50:00 Test Item Value Reference Range Comments POC-GLUCOSE METER (BEAKER) 203 mg/dL 70-110 TESTED AT [address] (test smcf=8453) [place] [address] POCT-GLUCOSE [id number] 12:49:00 Test Item Value Reference Range Comments POC-GLUCOSE METER (BEAKER) 219 mg/dL 70-110 TESTED AT [address] (test hizp=7128) [place] [address] ANTI-NUCLEAR ANTIBODY (QUE)[id number] 10:03:00 Test Item Value Reference Range Comments ANTI-NUCLEAR ANTIBODY (QUE) (BEAKER) (test Negative Negative ulcs=075) Test performed by IFA method.Test performed by IFA method.POCT-GLUCOSE [id number] 08:54:00 Test Item Value Reference Range Comments POC-GLUCOSE METER (BEAKER) 125 mg/dL 70-110 TESTED AT [address] (test romq=5720) [place] [address] BASIC METABOLIC [id number] 07:41:00 Test Item Value Reference Range Comments SODIUM (BEAKER) (test 141 meq/L 136-145 pjlb=435) POTASSIUM (BEAKER) (test 3.0 meq/L 3.5-5.1 viwz=919) CHLORIDE (BEAKER) (test 101 meq/L 98-107 gvgi=237) CO2 (BEAKER) (test 35 meq/L 22-29 bwgm=359) BLOOD UREA NITROGEN 16 mg/dL 7-21 (BEAKER) (test vpde=064) CREATININE (BEAKER) (test 1.31 mg/dL 0.57-1.25 cvut=198) GLUCOSE RANDOM (BEAKER) 136 mg/dL 70-105 (test qmml=766) CALCIUM (BEAKER) (test 7.9 mg/dL 8.4-10.2 idzk=310) EGFR (BEAKER) (test 41 mL/min/1.73 sq m ESTIMATED GFR IS NOT qnuh=5683) ACCURATE CREATININE CLEARANCE IN PREDICTING GLOMERULAR FILTRATION RATE. ESTIMATED GFR IS NOT APPLICABLE FOR DIALYSIS PATIENTS. [id number] 07:32:00 Test Item Value Reference Range Comments PHOSPHORUS (BEAKER) (test qcqe=321) 2.0 mg/dL 2.3-4.7 [id number] 07:32:00 Test Item Value Reference Range Comments MAGNESIUM (BEAKER) (test emje=185) 1.6 mg/dL 1.6-2.6 HEPATIC FUNCTION [id number] 07:32:00 Test Item Value Reference Range Comments TOTAL PROTEIN (BEAKER) (test zuky=905) 4.9 gm/dL 6.0-8.3 ALBUMIN (BEAKER) (test fjjw=9605) 3.0 g/dL 3.5-5.0 BILIRUBIN TOTAL (BEAKER) (test jghq=906) 1.4 mg/dL 0.2-1.2 BILIRUBIN DIRECT (BEAKER) (test echp=227) 0.7 mg/dL 0.1-0.5 ALKALINE PHOSPHATASE (BEAKER) (test nipc=590) 86 U/L 40-150 AST (SGOT) (BEAKER) (test zjma=918) 25 U/L 5-34 ALT (SGPT) (BEAKER) (test mgsr=614) 10 U/L 6-55 CBC W/PLT COUNT & AUTO [id number] 06:11:00 Test Item Value Reference Range Comments WHITE BLOOD CELL COUNT (BEAKER) (test acyt=265) 4.2 K/ L 3.5-10.5 RED BLOOD CELL COUNT (BEAKER) (test dtel=857) 2.68 M/ L 3.93-5.22 HEMOGLOBIN (BEAKER) (test aadx=672) 7.4 GM/DL 11.2-15.7 HEMATOCRIT (BEAKER) (test fpya=333) 23.5 % 34.1-44.9 MEAN CORPUSCULAR VOLUME (BEAKER) (test dtxr=906) 87.7 fL 79.4-94.8 MEAN CORPUSCULAR HEMOGLOBIN (BEAKER) (test 27.6 pg 25.6-32.2 nzkf=580) MEAN CORPUSCULAR HEMOGLOBIN CONC (BEAKER) (test 31.5 GM/DL 32.2-35.5 ldrs=229) RED CELL DISTRIBUTION WIDTH (BEAKER) (test 18.2 % 11.7-14.4 nlua=722) PLATELET COUNT (BEAKER) (test lytk=935) 140 K/CU MM 150-450 MEAN PLATELET VOLUME (BEAKER) (test efed=260) 10.3 fL 9.4-12.3 NUCLEATED RED BLOOD CELLS (BEAKER) (test 0 /100 WBC 0-0 bxjj=664) NEUTROPHILS RELATIVE PERCENT (BEAKER) (test 44 % kysa=842) LYMPHOCYTES RELATIVE PERCENT (BEAKER) (test 33 % prat=379) MONOCYTES RELATIVE PERCENT (BEAKER) (test 12 % ggsd=168) EOSINOPHILS RELATIVE PERCENT (BEAKER) (test 10 % wmji=544) BASOPHILS RELATIVE PERCENT (BEAKER) (test 2 % yiqs=317) NEUTROPHILS ABSOLUTE COUNT (BEAKER) (test 1.82 K/ L 1.56-6.13 qmnx=540) LYMPHOCYTES ABSOLUTE COUNT (BEAKER) (test 1.36 K/ L 1.18-3.74 enni=688) MONOCYTES ABSOLUTE COUNT (BEAKER) (test 0.48 K/ L 0.24-0.36 yddl=793) EOSINOPHILS ABSOLUTE COUNT (BEAKER) (test 0.42 K/ L 0.04-0.36 umvi=477) BASOPHILS ABSOLUTE COUNT (BEAKER) (test 0.07 K/ L 0.01-0.08 vxah=497) IMMATURE GRANULOCYTES-RELATIVE PERCENT (BEAKER) 0 % 0-1 (test zjid=0416) PROTHROMBIN [id number] 05:31:00 Test Item Value Reference Range Comments PROTIME (BEAKER) (test lqmt=323) 14.8 seconds 11.9-14.2 INR (BEAKER) (test prgi=151) 1.2 <=5.9 Effective 04/01/2019: PT Reference Range ChangeNew: 11.9-14.2 Previous: 11.7- 14.7RECOMMENDED COUMADIN/WARFARIN INR THERAPY RANGESSTANDARD DOSE: 2.0-3.0 Includes: PROPHYLAXIS for venous thrombosis, systemic embolization; TREATMENT for venous thrombosis and/or pulmonary embolus.HIGH RISK: Target INR is2.5-3.5 for patients wiht mechanical heart valves.BLOOD [id number] 02:01:00 Test Item Value Reference Range Comments CULTURE (BEAKER) (test xmjh=8063) No growth in 5 days BLOOD [id number] 02:01:00 Test Item Value Reference Range Comments CULTURE (BEAKER) (test zdub=1907) No growth in 5 days POCT-GLUCOSE [id number] 23:07:00 Test Item Value Reference Range Comments POC-GLUCOSE METER (BEAKER) 217 mg/dL 70-110 TESTED AT [address] (test alhu=7744) [place] [id number] POCT-GLUCOSE [id number] 17:54:00 Test Item Value Reference Range Comments POC-GLUCOSE METER (BEAKER) 138 mg/dL 70-110 TESTED AT [address] (test tsik=4830) [place] [id number] POCT-GLUCOSE [id number] 12:22:00 Test Item Value Reference Range Comments POC-GLUCOSE METER (BEAKER) 114 mg/dL 70-110 TESTED AT [address] (test tgxa=0595) [place] [id number] POCT-GLUCOSE [id number] 07:39:00 Test Item Value Reference Range Comments POC-GLUCOSE METER (BEAKER) 124 mg/dL 70-110 TESTED AT [address] (test lwfw=3972) [place] [id number] HEPATIC FUNCTION [id number] 05:49:00 Test Item Value Reference Range Comments TOTAL PROTEIN (BEAKER) (test fiqj=453) 5.1 gm/dL 6.0-8.3 ALBUMIN (BEAKER) (test qpry=7601) 2.9 g/dL 3.5-5.0 BILIRUBIN TOTAL (BEAKER) (test algs=648) 1.3 mg/dL 0.2-1.2 BILIRUBIN DIRECT (BEAKER) (test hdyx=353) 0.7 mg/dL 0.1-0.5 ALKALINE PHOSPHATASE (BEAKER) (test znvz=777) 91 U/L 40-150 AST (SGOT) (BEAKER) (test kemw=926) 30 U/L 5-34 ALT (SGPT) (BEAKER) (test ageg=832) 10 U/L 6-55 BASIC METABOLIC [id number] 05:49:00 Test Item Value Reference Range Comments SODIUM (BEAKER) (test 140 meq/L 136-145 ivty=144) POTASSIUM (BEAKER) (test 3.2 meq/L 3.5-5.1 busc=086) CHLORIDE (BEAKER) (test 103 meq/L 98-107 qdbb=813) CO2 (BEAKER) (test 27 meq/L 22-29 kjse=850) BLOOD UREA NITROGEN 17 mg/dL 7-21 (BEAKER) (test itop=194) CREATININE (BEAKER) (test 1.30 mg/dL 0.57-1.25 guaj=219) GLUCOSE RANDOM (BEAKER) 143 mg/dL 70-105 (test twga=536) CALCIUM (BEAKER) (test 7.9 mg/dL 8.4-10.2 ngxd=491) EGFR (BEAKER) (test 42 mL/min/1.73 sq m ESTIMATED GFR IS NOT gbsk=3987) ACCURATE CREATININE CLEARANCE IN PREDICTING GLOMERULAR FILTRATION RATE. ESTIMATED GFR IS NOT APPLICABLE FOR DIALYSIS PATIENTS. PROTHROMBIN [id number] 05:32:00 Test Item Value Reference Range Comments PROTIME (BEAKER) (test ugia=236) 14.7 seconds 11.9-14.2 INR (BEAKER) (test vnqh=737) 1.2 <=5.9 Effective 04/01/2019: PT Reference Range ChangeNew: 11.9-14.2 Previous: 11.7- 14.7RECOMMENDED COUMADIN/WARFARIN INR THERAPY RANGESSTANDARD DOSE: 2.0-3.0 Includes: PROPHYLAXIS for venous thrombosis, systemic embolization; TREATMENT for venous thrombosis and/or pulmonary embolus.HIGH RISK: Target INR is2.5-3.5 for patients wiht mechanical heart valves.CBC W/PLT COUNT & AUTO [id number] 05:09:00 Test Item Value Reference Range Comments WHITE BLOOD CELL COUNT (BEAKER) (test iuuv=327) 4.7 K/ L 3.5-10.5 RED BLOOD CELL COUNT (BEAKER) (test forr=737) 2.86 M/ L 3.93-5.22 HEMOGLOBIN (BEAKER) (test stke=502) 7.9 GM/DL 11.2-15.7 HEMATOCRIT (BEAKER) (test yjiz=012) 25.3 % 34.1-44.9 MEAN CORPUSCULAR VOLUME (BEAKER) (test yzwp=022) 88.5 fL 79.4-94.8 MEAN CORPUSCULAR HEMOGLOBIN (BEAKER) (test 27.6 pg 25.6-32.2 yvrs=706) MEAN CORPUSCULAR HEMOGLOBIN CONC (BEAKER) (test 31.2 GM/DL 32.2-35.5 ragw=927) RED CELL DISTRIBUTION WIDTH (BEAKER) (test 17.4 % 11.7-14.4 efxw=009) PLATELET COUNT (BEAKER) (test uvmn=437) 141 K/CU MM 150-450 MEAN PLATELET VOLUME (BEAKER) (test pexx=209) 9.3 fL 9.4-12.3 NUCLEATED RED BLOOD CELLS (BEAKER) (test 0 /100 WBC 0-0 kvgm=663) NEUTROPHILS RELATIVE PERCENT (BEAKER) (test 50 % toom=107) LYMPHOCYTES RELATIVE PERCENT (BEAKER) (test 28 % pdwn=493) MONOCYTES RELATIVE PERCENT (BEAKER) (test 11 % rgzq=083) EOSINOPHILS RELATIVE PERCENT (BEAKER) (test 10 % bvab=240) BASOPHILS RELATIVE PERCENT (BEAKER) (test 1 % dkck=117) NEUTROPHILS ABSOLUTE COUNT (BEAKER) (test 2.33 K/ L 1.56-6.13 xtaj=240) LYMPHOCYTES ABSOLUTE COUNT (BEAKER) (test 1.31 K/ L 1.18-3.74 etlt=482) MONOCYTES ABSOLUTE COUNT (BEAKER) (test 0.51 K/ L 0.24-0.36 tkjr=607) EOSINOPHILS ABSOLUTE COUNT (BEAKER) (test 0.46 K/ L 0.04-0.36 aems=098) BASOPHILS ABSOLUTE COUNT (BEAKER) (test 0.06 K/ L 0.01-0.08 izcw=221) IMMATURE GRANULOCYTES-RELATIVE PERCENT (BEAKER) 0 % 0-1 (test jdap=8625) BLOOD GAS, [id number] 22:21:00 Test Item Value Reference Range Comments PH ARTERIAL (BEAKER) (test rxxj=072) 7.49 7.35-7.45 PCO2 ARTERIAL (BEAKER) (test lqjt=435) 43 mmHg 35-45 PO2 ARTERIAL (BEAKER) (test qxix=220) 56 mmHg 80-90 O2 SATURATION ARTERIAL (BEAKER) (test fzpk=608) 92.5 % 96.0-97.0 HCO3 ARTERIAL (BEAKER) (test eena=426) 32 mmol/L 21-29 BASE EXCESS ARTERIAL (BEAKER) (test bjvj=280) 7.9 mmol/L -2.0-3.0 PATIENT TEMPERATURE (BEAKER) (test ampg=7815) 35.8 C FIO2 (BEAKER) (test dszo=6210) 21.0 % POCT-GLUCOSE [id number] 21:14:00 Test Item Value Reference Range Comments POC-GLUCOSE METER (BEAKER) 259 mg/dL 70-110 TESTED AT [address] (test fsuw=4247) [place] [address] BODY FLUID CULTURE + GRAM [id number] 18:00:00 Test Item Value Reference Range Comments CULTURE (BEAKER) (test hvno=8530) No growth GRAM STAIN RESULT (BEAKER) (test No WBCs uysg=1898) GRAM STAIN RESULT (BEAKER) (test No organisms seen fuyz=96077) POCT-GLUCOSE [id number] 17:23:00 Test Item Value Reference Range Comments POC-GLUCOSE METER (BEAKER) 201 mg/dL 70-110 TESTED AT [address] (test rmzz=7081) [place] [address] RAD, MANDIBLE, MIN 4 [id number] 15:00:00Reason for exam:->liver transplant evalShould this be [...] Martinez MDReport Verified Date/Time: 05/23/201915:00:10 Reading Location: [address] Transitional Reading Room CRYPTOCOCCAL [id number] 14:59:00 Test Item Value Reference Range Comments CRYPTOCOCCAL ANTIGEN, SERUM (BEAKER) (test Negative Negative, Interference tsih=3991) [id number] 14:45:00 Test Item Value Reference Range Comments RPR SCREEN (BEAKER) (test caka=813) Nonreactive Nonreactive CYTOMEGALOVIRUS ANTIBODY, [id number] 13:48:00 Test Item Value Reference Range Comments CYTOMEGALOVIRUS, IGG (BEAKER) (test rdqh=5886) Positive Negative, Equivocal CMV IgG Result Interpretation: </=0.8 Al Negative 0.9-1.0 Al Equivocal &gt ;/=1.1 Al PositiveCYTOMEGALOVIRUS ANTIBODY, [id number] 13:48:00 Test Item Value Reference Range Comments CYTOMEGALOVIRUS IGM ANTIBODY (BEAKER) (test Negative Negative, Equivocal vtbd=3374) CMV IgM Result Interpretation: </=0.8 Al Negative 0.9-1.0 Al Equivocal >/=1.1 Al PositiveEBV ANTIBODY, [id number] 13:48:00 Test Item Value Reference Range Comments BERTRAND BOLES VIRAL CAPSID ANTIGEN IGG (BEAKER) Positive Negative, Equivocal (test jjvg=5897) Bertrand Boles Viral Capsid Antigen IgG Result Interpretation: </=0.8 Al Negative 0.9-1.0 Al Equivocal >/=1.1 Al PositiveEBV ANTIBODY, [id number] 13:48:00 Test Item Value Reference Range Comments BERTRAND BOLES VIRAL CAPSID ANTIGEN IGM (BEAKER) Negative Negative, Equivocal (test oyaw=2630) Bertrand Boles Viral Capsid Antigen IgM Result Interpretation: </=0.8 Al Negative 0.9-1.0 Al Equivocal >/=1.1 Al PositiveVARICELLA ZOSTER ANTIBODY , [id number] 13:48:00 Test Item Value Reference Range Comments VARICELLA ZOSTER IGG (AL) (BEAKER) (test trdz=2141) 0.9 VARICELLA ZOSTER RESULT INTERPRETATIONS: <=0.8 Al Nonreactive: Presumed non-immune to VZV 0.9-1.0 Al Equivocal >=1.1 Al Reactive: Presumed immune to VZVRUBELLA ANTIBODY, [id number] 13:48:00 Test Item Value Reference Range Comments RUBELLA IGG QUANTITATION (AKER) (test oafs=976) 12.0 IU/mL <8.0 Rubella IgG Result Interpretation: </=7.0 IU/mL Negative - Presumed non- immune 8.0 - 9.9 IU/mL Equivocal >=10.0 IU/mL Positive - Presumed immunePOCT-GLUCOSE [id number] 11:41:00 Test Item Value Reference Range Comments POC-GLUCOSE METER (BEAKER) 162 mg/dL 70-110 TESTED AT [address] (test wmjb=8131) [facility] [address] POCT-GLUCOSE [id number] 10:06:00 Test Item Value Reference Range Comments POC-GLUCOSE METER (BEAKER) 95 mg/dL 70-110 TESTED AT [address] (test kfov=1055) [place] [id number] IRON, TIBC, % SAT. (WITHOUT FERRITIN)2019-05-23 07:32:00 Test Item Value Reference Range Comments IRON (BEAKER) (test zyxe=460) 30.0 ug/dL 40.0-160.0 TOTAL IRON BINDING CAPACITY (BEAKER) (test 143 ug/dL 250-450 tubr=356) IRON % SATURATION (2) (BEAKER) (test woif=4230) 21 % 20-55 [id number] 06:29:00 Test Item Value Reference Range Comments PHOSPHORUS (BEAKER) (test kvkl=763) 1.9 mg/dL 2.3-4.7 [id number] 06:29:00 Test Item Value Reference Range Comments MAGNESIUM (BEAKER) (test oyck=774) 1.5 mg/dL 1.6-2.6 HEPATIC FUNCTION [id number] 06:29:00 Test Item Value Reference Range Comments TOTAL PROTEIN (BEAKER) (test sqnw=412) 5.2 gm/dL 6.0-8.3 ALBUMIN (BEAKER) (test kynn=9582) 3.0 g/dL 3.5-5.0 BILIRUBIN TOTAL (BEAKER) (test qgjs=311) 1.6 mg/dL 0.2-1.2 BILIRUBIN DIRECT (BEAKER) (test vqwm=019) 0.8 mg/dL 0.1-0.5 ALKALINE PHOSPHATASE (BEAKER) (test zmsd=860) 87 U/L 40-150 AST (SGOT) (BEAKER) (test ulmp=525) 24 U/L 5-34 ALT (SGPT) (BEAKER) (test twpf=896) 11 U/L 6-55 COMPREHENSIVE METABOLIC [id number] 06:29:00 Test Item Value Reference Range Comments TOTAL PROTEIN (BEAKER) 5.2 gm/dL 6.0-8.3 (test qars=151) ALBUMIN (BEAKER) (test 3.0 g/dL 3.5-5.0 yffg=3704) ALKALINE PHOSPHATASE 87 U/L 40-150 (BEAKER) (test axdf=368) BILIRUBIN TOTAL (BEAKER) 1.6 mg/dL 0.2-1.2 (test qsqp=697) SODIUM (BEAKER) (test 139 meq/L 136-145 vkwi=446) POTASSIUM (BEAKER) (test 3.3 meq/L 3.5-5.1 jijm=776) CHLORIDE (BEAKER) (test 104 meq/L 98-107 meev=987) CO2 (BEAKER) (test 30 meq/L 22-29 xylq=804) BLOOD UREA NITROGEN 18 mg/dL 7-21 (BEAKER) (test uvts=866) CREATININE (BEAKER) (test 1.41 mg/dL 0.57-1.25 htnd=535) GLUCOSE RANDOM (BEAKER) 102 mg/dL 70-105 (test pmzc=482) CALCIUM (BEAKER) (test 8.1 mg/dL 8.4-10.2 oikl=152) AST (SGOT) (BEAKER) (test 24 U/L 5-34 mvmd=827) ALT (SGPT) (BEAKER) (test 11 U/L 6-55 rgze=457) EGFR (BEAKER) (test 38 mL/min/1.73 sq m ESTIMATED GFR IS NOT ddks=0795) ACCURATE CREATININE CLEARANCE IN PREDICTING GLOMERULAR FILTRATION RATE. ESTIMATED GFR IS NOT APPLICABLE FOR DIALYSIS PATIENTS. CBC W/PLT COUNT & AUTO [id number] 05:46:00 Test Item Value Reference Range Comments WHITE BLOOD CELL COUNT (BEAKER) (test eikk=181) 4.9 K/ L 3.5-10.5 RED BLOOD CELL COUNT (BEAKER) (test ldfr=907) 2.83 M/ L 3.93-5.22 HEMOGLOBIN (BEAKER) (test zpnh=475) 8.0 GM/DL 11.2-15.7 HEMATOCRIT (BEAKER) (test gjqo=043) 24.4 % 34.1-44.9 MEAN CORPUSCULAR VOLUME (BEAKER) (test wzns=871) 86.2 fL 79.4-94.8 MEAN CORPUSCULAR HEMOGLOBIN (BEAKER) (test 28.3 pg 25.6-32.2 drjb=867) MEAN CORPUSCULAR HEMOGLOBIN CONC (BEAKER) (test 32.8 GM/DL 32.2-35.5 xmne=584) RED CELL DISTRIBUTION WIDTH (BEAKER) (test 17.6 % 11.7-14.4 xfls=482) PLATELET COUNT (BEAKER) (test frdl=332) 147 K/CU MM 150-450 MEAN PLATELET VOLUME (BEAKER) (test vsqv=084) 9.1 fL 9.4-12.3 NUCLEATED RED BLOOD CELLS (BEAKER) (test 0 /100 WBC 0-0 dklf=268) NEUTROPHILS RELATIVE PERCENT (BEAKER) (test 51 % erop=577) LYMPHOCYTES RELATIVE PERCENT (BEAKER) (test 27 % hfys=353) MONOCYTES RELATIVE PERCENT (BEAKER) (test 11 % tfqp=286) EOSINOPHILS RELATIVE PERCENT (BEAKER) (test 10 % kafy=217) BASOPHILS RELATIVE PERCENT (BEAKER) (test 1 % btco=973) NEUTROPHILS ABSOLUTE COUNT (BEAKER) (test 2.51 K/ L 1.56-6.13 ojor=709) LYMPHOCYTES ABSOLUTE COUNT (BEAKER) (test 1.30 K/ L 1.18-3.74 bjes=597) MONOCYTES ABSOLUTE COUNT (BEAKER) (test 0.54 K/ L 0.24-0.36 ypth=414) EOSINOPHILS ABSOLUTE COUNT (BEAKER) (test 0.48 K/ L 0.04-0.36 oiwk=705) BASOPHILS ABSOLUTE COUNT (BEAKER) (test 0.06 K/ L 0.01-0.08 rsxq=143) IMMATURE GRANULOCYTES-RELATIVE PERCENT (BEAKER) 0 % 0-1 (test hsqp=4345) PROTHROMBIN [id number] 05:46:00 Test Item Value Reference Range Comments PROTIME (BEAKER) (test bjjw=170) 14.9 seconds 11.9-14.2 INR (BEAKER) (test lnqo=544) 1.2 <=5.9 Effective 04/01/2019: PT Reference Range ChangeNew: 11.9-14.2 Previous: 11.7- 14.7RECOMMENDED COUMADIN/WARFARIN INR THERAPY RANGESSTANDARD DOSE: 2.0-3.0 Includes: PROPHYLAXIS for venous thrombosis, systemic embolization; TREATMENT for venous thrombosis and/or pulmonary embolus.HIGH RISK: Target INR is2.5-3.5 for patients wiht mechanical heart valves.CALCIUM, [id number] 05:44:00 Test Item Value Reference Range Comments CALCIUM IONIZED (BEAKER) (test smab=832) 0.99 mmol/L 1.12-1.27 PH, BLOOD (BEAKER) (test txjq=3120) 7.48 HEMOGLOBIN [id number] 22:07:00 Test Item Value Reference Range Comments HEMOGLOBIN A1C (BEAKER) (test utdz=439) 8.1 % 4.3-6.1 POCT-GLUCOSE [id number] 21:38:00 Test Item Value Reference Range Comments POC-GLUCOSE METER (BEAKER) 213 mg/dL 70-110 TESTED AT [address] (test xwid=5007) [facility] [address] POCT-GLUCOSE [id number] 18:07:00 Test Item Value Reference Range Comments POC-GLUCOSE METER (BEAKER) 212 mg/dL 70-110 TESTED AT [address] (test pqfd=6045) [facility] [address] ALPHA FETOPROTEIN (AFP), TUMOR [id number] 17:50:00 Test Item Value Reference Range Comments ALPHA-FETOPROTEIN (BEAKER) (test ezjb=9483) < ng/mL <10.0 HEPATITIS C [id number] 17:49:00 Test Item Value Reference Range Comments HEPATITIS C ANTIBODY (BEAKER) (test jxat=660) Nonreactive Nonreactive VITAMIN D, [id number] 15:10:00 Test Item Value Reference Range Comments VITAMIN D 25-OH (BEAKER) (test bsst=8637) < ng/mL 6.6-49.9 Effective 08/14/2017: Reference Range ChangeNew: 6.6-49.9 ng/mL Previous: 13.0 -47.8 ng/mLRecommended Vitamin D Target Range: 30.0-40.0 ng/mLHEPATITIS B SURFACE [id number] 15:10:00 Test Item Value Reference Range Comments HEPATITIS B SURFACE ANTIBODY (BEAKER) (test < mIU/mL <8.0 haox=772) CARCINOEMBRYONIC ANTIGEN (CEA)2019-05-22 15:10:00 Test Item Value Reference Range Comments CARCINOEMBRYONIC ANTIGEN (BEAKER) (test dfat=883) < ng/mL 0.0-5.0 HEPATITIS B CORE ANTIBODY, [id number] 15:08:00 Test Item Value Reference Range Comments HEPATITIS B CORE IGM ANTIBODY (BEAKER) (test Nonreactive Nonreactive rrph=497) HEPATITIS A ANTIBODY, [id number] 15:08:00 Test Item Value Reference Range Comments HEPATITIS A IGM ANTIBODY (BEAKER) (test Nonreactive Nonreactive mphs=584) HEPATITIS A ANTIBODY, [id number] 15:08:00 Test Item Value Reference Range Comments HEPATITIS A IGG ANTIBODY (BEAKER) (test Nonreactive Nonreactive jjai=8651) HEPATITIS B SURFACE [id number] 15:05:00 Test Item Value Reference Range Comments HEPATITIS B SURFACE ANTIGEN (2) (BEAKER) (test Nonreactive Nonreactive ybxh=0434) HEPATITIS B CORE ANTIBODY, [id number] 15:05:00 Test Item Value Reference Range Comments HEPATITIS B CORE TOTAL ANTIBODY (BEAKER) (test Nonreactive Nonreactive roui=462) HIV-1 ANTIGEN WITH HIV-1/2 [id number] 15:05:00 Test Item Value Reference Range Comments HIV-1 ANTIGEN WITH HIV 1\\T\\2 ANTIBODY (2) Nonreactive Nonreactive (BEAKER) (test dtiq=8026) URIC [id number] 14:46:00 Test Item Value Reference Range Comments URIC ACID (BEAKER) (test jcxx=761) 5.7 mg/dL 2.6-7.2 LIPID [id number] 14:46:00 Test Item Value Reference Range Comments TRIGLYCERIDES (BEAKER) (test ijmj=605) 71 mg/dL CHOLESTEROL (BEAKER) (test ztyd=178) 72 mg/dL HDL CHOLESTEROL (BEAKER) (test fmgu=052) 20 mg/dL LDL CHOLESTEROL CALCULATED (BEAKER) (test esfm=839) 38 mg/dL Triglyceride Reference Range: Low Risk <150 Borderline 150- 199 High Risk 200-499 Very High Risk >=500Cholesterol Reference Range: Low Risk <200 Borderline 200-239 High Risk > 240HDL Cholesterol Reference Range: Low Risk >=60 High Risk <40LDL Cholesterol Reference Range: Optimal <100 Near Optimal 100-129 Borderline 130-159 High 160-189 Very High >=190BILIRUBIN, [id number] 14:46:00 Test Item Value Reference Range Comments BILIRUBIN DIRECT (BEAKER) (test xzgi=648) 0.8 mg/dL 0.1-0.5 GAMMA GLUTAMYL TRANSFERASE (GGT)2019-05-22 14:46:00 Test Item Value Reference Range Comments GAMMA GLUTAMYL TRANSFERASE (BEAKER) (test zcfw=564) 10 U/L 9-64 [id number] 14:45:00 Test Item Value Reference Range Comments ETHANOL (BEAKER) (test shkt=972) < mg/dL <=10 [id number] 14:44:00 Test Item Value Reference Range Comments TRANSFERRIN (BEAKER) (test lboc=845) 109 mg/dL 174-382 IRON, TIBC, % SAT. (WITHOUT FERRITIN)2019-05-22 14:44:00 Test Item Value Reference Range Comments IRON (BEAKER) (test lgxb=335) 40.0 ug/dL 40.0-160.0 TOTAL IRON BINDING CAPACITY (BEAKER) (test 136 ug/dL 250-450 berc=194) IRON % SATURATION (2) (BEAKER) (test wleg=5738) 29 % 20-55 [id number] 14:34:00 Test Item Value Reference Range Comments PARTIAL THROMBOPLASTIN TIME (DAKOTAH) (test 35.7 seconds 22.5-36.0 nugd=044) [id number] 14:33:00 Test Item Value Reference Range Comments FIBRINOGEN LEVEL (DAKOTAH) (test ruot=749) 282 mg/dl 225-434 U/S, ABDOMINAL, WITH [id number] 14:09:00Reason for exam:->TIPS evaluationFINAL REPORT Ultrasound of [...] MDReport Verified Date/Time: 05/22/2019 14:09:52 Reading Location: [address] Radiology Reading Room Electronically signed by: MISSY MOMIN M.D. on 2018 02:09 PMPOCT-GLUCOSE [id number] 12:31:00 Test Item Value Reference Range Comments POC-GLUCOSE METER (BEAKER) 252 mg/dL 70-[address] [facility] [address] [facility] (test przi=1190) [facility] [address] COMPREHENSIVE METABOLIC [id number] 08:22:00 Test Item Value Reference Range Comments TOTAL PROTEIN (BEAKER) 4.8 gm/dL 6.0-8.3 (test dcen=517) ALBUMIN (BEAKER) (test 3.0 g/dL 3.5-5.0 psvl=0536) ALKALINE PHOSPHATASE 77 U/L 40-150 (BEAKER) (test rqxw=287) BILIRUBIN TOTAL (BEAKER) 1.6 mg/dL 0.2-1.2 (test angu=611) SODIUM (BEAKER) (test 141 meq/L 136-145 femz=136) POTASSIUM (BEAKER) (test 3.1 meq/L 3.5-5.1 gjek=113) CHLORIDE (BEAKER) (test 105 meq/L 98-107 tvxo=143) CO2 (BEAKER) (test 31 meq/L 22-29 ibpq=474) BLOOD UREA NITROGEN 18 mg/dL 7-21 (BEAKER) (test owdr=297) CREATININE (BEAKER) (test 1.50 mg/dL 0.57-1.25 jufd=356) GLUCOSE RANDOM (BEAKER) 145 mg/dL 70-105 (test dihl=127) CALCIUM (BEAKER) (test 7.9 mg/dL 8.4-10.2 yjtv=622) AST (SGOT) (BEAKER) (test 23 U/L 5-34 janb=796) ALT (SGPT) (BEAKER) (test 7 U/L 6-55 xfkk=077) EGFR (BEAKER) (test 35 mL/min/1.73 sq m ESTIMATED GFR IS NOT rswf=9272) ACCURATE CREATININE CLEARANCE IN PREDICTING GLOMERULAR FILTRATION RATE. ESTIMATED GFR IS NOT APPLICABLE FOR DIALYSIS PATIENTS. [id number] 08:19:00 Test Item Value Reference Range Comments PHOSPHORUS (BEAKER) (test vovx=579) 2.2 mg/dL 2.3-4.7 [id number] 08:19:00 Test Item Value Reference Range Comments MAGNESIUM (BEAKER) (test lgnu=164) 1.5 mg/dL 1.6-2.6 HEPATIC FUNCTION [id number] 08:19:00 Test Item Value Reference Range Comments TOTAL PROTEIN (BEAKER) (test rbop=081) 4.8 gm/dL 6.0-8.3 ALBUMIN (BEAKER) (test clkd=9017) 3.0 g/dL 3.5-5.0 BILIRUBIN TOTAL (BEAKER) (test jhbb=999) 1.6 mg/dL 0.2-1.2 BILIRUBIN DIRECT (BEAKER) (test wotq=441) 0.7 mg/dL 0.1-0.5 ALKALINE PHOSPHATASE (BEAKER) (test vuow=226) 77 U/L 40-150 AST (SGOT) (BEAKER) (test dfla=936) 23 U/L 5-34 ALT (SGPT) (BEAKER) (test jwzu=099) 7 U/L 6-55 POCT-GLUCOSE [id number] 08:08:00 Test Item Value Reference Range Comments POC-GLUCOSE METER (BEAKER) 154 mg/dL 70-[address] [facility] [address] [place] [address] (test trwg=3619) [facility] [address] B-TYPE NATRIURETIC FACTOR (BNP)2019-05-22 06:18:00 Test Item Value Reference Range Comments B-TYPE NATRIURETIC PEPTIDE (BEAKER) (test 411 pg/mL 0-100 abvn=456) PROTHROMBIN [id number] 06:00:00 Test Item Value Reference Range Comments PROTIME (BEAKER) (test xgiv=439) 14.9 seconds 11.9-14.2 INR (BEAKER) (test ablh=607) 1.2 <=5.9 Effective 04/01/2019: PT Reference Range ChangeNew: 11.9-14.2 Previous: 11.7- 14.7RECOMMENDED COUMADIN/WARFARIN INR THERAPY RANGESSTANDARD DOSE: 2.0-3.0 Includes: PROPHYLAXIS for venous thrombosis, systemic embolization; TREATMENT for venous thrombosis and/or pulmonary embolus.HIGH RISK: Target INR is2.5-3.5 for patients wiht mechanical heart valves.CALCIUM, [id number] 05:48:00 Test Item Value Reference Range Comments CALCIUM IONIZED (BEAKER) (test gqzj=469) 1.04 mmol/L 1.12-1.27 PH, BLOOD (BEAKER) (test oeaw=2486) 7.40 CBC W/PLT COUNT & AUTO [id number] 05:45:00 Test Item Value Reference Range Comments WHITE BLOOD CELL COUNT (BEAKER) (test oxpi=442) 4.1 K/ L 3.5-10.5 RED BLOOD CELL COUNT (BEAKER) (test trha=882) 2.71 M/ L 3.93-5.22 HEMOGLOBIN (BEAKER) (test zksl=466) 7.4 GM/DL 11.2-15.7 HEMATOCRIT (BEAKER) (test pafd=722) 23.6 % 34.1-44.9 MEAN CORPUSCULAR VOLUME (BEAKER) (test pmia=780) 87.1 fL 79.4-94.8 MEAN CORPUSCULAR HEMOGLOBIN (BEAKER) (test 27.3 pg 25.6-32.2 fznr=485) MEAN CORPUSCULAR HEMOGLOBIN CONC (BEAKER) (test 31.4 GM/DL 32.2-35.5 wokk=026) RED CELL DISTRIBUTION WIDTH (BEAKER) (test 17.2 % 11.7-14.4 fmjn=487) PLATELET COUNT (BEAKER) (test oezs=233) 126 K/CU MM 150-450 MEAN PLATELET VOLUME (BEAKER) (test jwqz=806) 9.2 fL 9.4-12.3 NUCLEATED RED BLOOD CELLS (BEAKER) (test 0 /100 WBC 0-0 klrn=817) NEUTROPHILS RELATIVE PERCENT (BEAKER) (test 49 % aawe=902) LYMPHOCYTES RELATIVE PERCENT (BEAKER) (test 29 % iobq=689) MONOCYTES RELATIVE PERCENT (BEAKER) (test 12 % wzzv=665) EOSINOPHILS RELATIVE PERCENT (BEAKER) (test 8 % tdbp=067) BASOPHILS RELATIVE PERCENT (BEAKER) (test 1 % coxd=274) NEUTROPHILS ABSOLUTE COUNT (BEAKER) (test 2.03 K/ L 1.56-6.13 xzxe=802) LYMPHOCYTES ABSOLUTE COUNT (BEAKER) (test 1.21 K/ L 1.18-3.74 veye=449) MONOCYTES ABSOLUTE COUNT (BEAKER) (test 0.51 K/ L 0.24-0.36 niav=817) EOSINOPHILS ABSOLUTE COUNT (BEAKER) (test 0.34 K/ L 0.04-0.36 vnph=557) BASOPHILS ABSOLUTE COUNT (BEAKER) (test 0.04 K/ L 0.01-0.08 szis=787) IMMATURE GRANULOCYTES-RELATIVE PERCENT (BEAKER) 0 % 0-1 (test kkmk=9756) POCT-GLUCOSE [id number] 21:52:00 Test Item Value Reference Range Comments POC-GLUCOSE METER (BEAKER) 241 mg/dL 70-110 TESTED AT [address] (test enqr=9671) [place] [address] POCT-GLUCOSE [id number] 17:36:00 Test Item Value Reference Range Comments POC-GLUCOSE METER (BEAKER) 291 mg/dL 70-110 TESTED AT [address] (test bedr=0603) [place] [id number] BODY FLUID CELL COUNT WITH [id number] 13:52:00 Test Item Value Reference Range Comments APPEARANCE FLUID (BEAKER) (test fwjc=802) Clear Clear COLOR FLUID (BEAKER) (test kwxz=863) Yellow Colorless, Straw RBC FLUID (BEAKER) (test pvjv=714) 1815 /cu mm <=1 ADJUSTED WBC FLUID (BEAKER) (test rknk=5137) 79 /cu mm <=5 LINING CELLS (BEAKER) (test jgrk=0323) 14 /cu mm <=1 NEUTROPHILS FLUID (BEAKER) (test odlm=1060) 0 % LYMPHS FLUID (BEAKER) (test anab=837) 25 % MONO/MACROPHAGE FLUID (BEAKER) (test fzfo=405) 74 % EOSINOPHILS FLUID (BEAKER) (test vooq=056) 1 % BASO FLUID (BEAKER) (test ecvz=100) 0 % CONTAINER BODY FLUID (BEAKER) (test qwfb=0097) EDTA Tube HEMOGLOBIN [id number] 13:47:00 Test Item Value Reference Range Comments HEMOGLOBIN A1C (BEAKER) (test gzgn=477) 8.4 % 4.3-6.1 POCT-GLUCOSE [id number] 11:56:00 Test Item Value Reference Range Comments POC-GLUCOSE METER (BEAKER) 223 mg/dL 70-[address] [facility] [address] [facility] (test iamn=0288) [facility] [address] POCT-GLUCOSE [id number] 08:31:00 Test Item Value Reference Range Comments POC-GLUCOSE METER (BEAKER) 257 mg/dL 70-[address] [facility] [address] [facility] (test ovbd=9962) [facility] [address] T4, [id number] 08:29:00 Test Item Value Reference Range Comments FREE T4 (BEAKER) (test oddu=905) 0.41 ng/dL 0.70-1.48 BASIC METABOLIC [id number] 08:28:00 Test Item Value Reference Range Comments SODIUM (BEAKER) (test 136 meq/L 136-145 izxg=498) POTASSIUM (BEAKER) (test 3.4 meq/L 3.5-5.1 kswv=813) CHLORIDE (BEAKER) (test 104 meq/L 98-107 utjq=149) CO2 (BEAKER) (test 27 meq/L 22-29 xolb=445) BLOOD UREA NITROGEN 18 mg/dL 7-21 (BEAKER) (test mhvb=852) CREATININE (BEAKER) (test 1.57 mg/dL 0.57-1.25 osrt=029) GLUCOSE RANDOM (BEAKER) 235 mg/dL 70-105 (test tlyy=930) CALCIUM (BEAKER) (test 7.8 mg/dL 8.4-10.2 jeyj=611) EGFR (BEAKER) (test 33 mL/min/1.73 sq m ESTIMATED GFR IS NOT xbty=6069) ACCURATE CREATININE CLEARANCE IN PREDICTING GLOMERULAR FILTRATION RATE. ESTIMATED GFR IS NOT APPLICABLE FOR DIALYSIS PATIENTS. Specimen slightly [id number] 08:14:00 Test Item Value Reference Range Comments PHOSPHORUS (BEAKER) (test xfxu=914) 2.4 mg/dL 2.3-4.7 [id number] 08:14:00 Test Item Value Reference Range Comments MAGNESIUM (BEAKER) (test ffcg=310) 1.5 mg/dL 1.6-2.6 HEPATIC FUNCTION [id number] 08:14:00 Test Item Value Reference Range Comments TOTAL PROTEIN (BEAKER) (test swgc=484) 5.1 gm/dL 6.0-8.3 ALBUMIN (BEAKER) (test yras=9107) 2.5 g/dL 3.5-5.0 BILIRUBIN TOTAL (BEAKER) (test qsio=256) 1.3 mg/dL 0.2-1.2 BILIRUBIN DIRECT (BEAKER) (test qbqm=541) 0.7 mg/dL 0.1-0.5 ALKALINE PHOSPHATASE (BEAKER) (test gpif=815) 107 U/L 40-150 AST (SGOT) (BEAKER) (test eajt=466) 27 U/L 5-34 ALT (SGPT) (BEAKER) (test zvmw=233) 11 U/L 6-55 Specimen slightly ictericTSH/FREE T4 IF [id number] 07:00:00 Test Item Value Reference Range Comments THYROID STIMULATING HORMONE (BEAKER) (test 59.61 uIU/mL 0.35-4.94 zfrw=739) PROTHROMBIN [id number] 05:56:00 Test Item Value Reference Range Comments PROTIME (BEAKER) (test ngwo=227) 14.3 seconds 11.9-14.2 INR (BEAKER) (test yovp=536) 1.2 <=5.9 Effective 04/01/2019: PT Reference Range ChangeNew: 11.9-14.2 Previous: 11.7- 14.7RECOMMENDED COUMADIN/WARFARIN INR THERAPY RANGESSTANDARD DOSE: 2.0-3.0 Includes: PROPHYLAXIS for venous thrombosis, systemic embolization; TREATMENT for venous thrombosis and/or pulmonary embolus.HIGH RISK: Target INR is2.5-3.5 for patients wiht mechanical heart valves.CALCIUM, [id number] 05:43:00 Test Item Value Reference Range Comments CALCIUM IONIZED (BEAKER) (test dyqf=366) 0.97 mmol/L 1.12-1.27 PH, BLOOD (BEAKER) (test dcsz=1165) 7.45 CBC W/PLT COUNT & AUTO [id number] 05:21:00 Test Item Value Reference Range Comments WHITE BLOOD CELL COUNT (BEAKER) (test quad=660) 5.5 K/ L 3.5-10.5 RED BLOOD CELL COUNT (BEAKER) (test vhbm=887) 3.06 M/ L 3.93-5.22 HEMOGLOBIN (BEAKER) (test xwyl=361) 8.3 GM/DL 11.2-15.7 HEMATOCRIT (BEAKER) (test znrh=482) 26.3 % 34.1-44.9 MEAN CORPUSCULAR VOLUME (BEAKER) (test ymtg=576) 85.9 fL 79.4-94.8 MEAN CORPUSCULAR HEMOGLOBIN (BEAKER) (test 27.1 pg 25.6-32.2 sqsg=201) MEAN CORPUSCULAR HEMOGLOBIN CONC (BEAKER) (test 31.6 GM/DL 32.2-35.5 sgcb=451) RED CELL DISTRIBUTION WIDTH (BEAKER) (test 17.2 % 11.7-14.4 wjwy=621) PLATELET COUNT (BEAKER) (test lgyt=250) 154 K/CU MM 150-450 MEAN PLATELET VOLUME (BEAKER) (test oklm=130) 8.9 fL 9.4-12.3 NUCLEATED RED BLOOD CELLS (BEAKER) (test 0 /100 WBC 0-0 pkcz=485) NEUTROPHILS RELATIVE PERCENT (BEAKER) (test 61 % tktp=749) LYMPHOCYTES RELATIVE PERCENT (BEAKER) (test 21 % oyax=918) MONOCYTES RELATIVE PERCENT (BEAKER) (test 10 % hyyk=833) EOSINOPHILS RELATIVE PERCENT (BEAKER) (test 8 % nayh=855) BASOPHILS RELATIVE PERCENT (BEAKER) (test 1 % qgsz=021) NEUTROPHILS ABSOLUTE COUNT (BEAKER) (test 3.33 K/ L 1.56-6.13 wsca=263) LYMPHOCYTES ABSOLUTE COUNT (BEAKER) (test 1.13 K/ L 1.18-3.74 aoek=496) MONOCYTES ABSOLUTE COUNT (BEAKER) (test 0.55 K/ L 0.24-0.36 qkvs=948) EOSINOPHILS ABSOLUTE COUNT (BEAKER) (test 0.42 K/ L 0.04-0.36 tkho=816) BASOPHILS ABSOLUTE COUNT (BEAKER) (test 0.06 K/ L 0.01-0.08 llwr=368) IMMATURE GRANULOCYTES-RELATIVE PERCENT (BEAKER) 0 % 0-1 (test xjts=2302) POCT-GLUCOSE [id number] 21:18:00 Test Item Value Reference Range Comments POC-GLUCOSE METER (BEAKER) 258 mg/dL 70-110 TESTED AT [address] (test tcbi=8300) [facility] [address] POCT-GLUCOSE [id number] 17:42:00 Test Item Value Reference Range Comments POC-GLUCOSE METER (BEAKER) 232 mg/dL 70-110 TESTED AT [address] (test waub=2006) [facility] [address] POCT-GLUCOSE [id number] 12:51:00 Test Item Value Reference Range Comments POC-GLUCOSE METER (BEAKER) 206 mg/dL 70-110 TESTED AT [address] (test rduv=1355) [facility] [address] POCT-GLUCOSE [id number] 07:53:00 Test Item Value Reference Range Comments POC-GLUCOSE METER (BEAKER) 219 mg/dL 70-110 TESTED AT [address] (test exau=0151) [facility] [address] COMPREHENSIVE METABOLIC [id number] 06:52:00 Test Item Value Reference Range Comments TOTAL PROTEIN (BEAKER) 4.9 gm/dL 6.0-8.3 (test ckvd=488) ALBUMIN (BEAKER) (test 2.3 g/dL 3.5-5.0 vaha=4021) ALKALINE PHOSPHATASE 119 U/L 40-150 (BEAKER) (test palq=830) BILIRUBIN TOTAL (BEAKER) 1.1 mg/dL 0.2-1.2 (test ndjm=185) SODIUM (BEAKER) (test 135 meq/L 136-145 kghf=953) POTASSIUM (BEAKER) (test 4.0 meq/L 3.5-5.1 aizz=524) CHLORIDE (BEAKER) (test 105 meq/L 98-107 uvet=673) CO2 (BEAKER) (test 26 meq/L 22-29 teqg=749) BLOOD UREA NITROGEN 18 mg/dL 7-21 (BEAKER) (test mcod=078) CREATININE (BEAKER) (test 1.38 mg/dL 0.57-1.25 komq=333) GLUCOSE RANDOM (BEAKER) 234 mg/dL 70-105 (test xhvl=861) CALCIUM (BEAKER) (test 7.8 mg/dL 8.4-10.2 mmna=786) AST (SGOT) (BEAKER) (test 29 U/L 5-34 taec=541) ALT (SGPT) (BEAKER) (test 13 U/L 6-55 vjeu=335) EGFR (BEAKER) (test 39 mL/min/1.73 sq m ESTIMATED GFR IS NOT ywfg=1782) ACCURATE CREATININE CLEARANCE IN PREDICTING GLOMERULAR FILTRATION RATE. ESTIMATED GFR IS NOT APPLICABLE FOR DIALYSIS PATIENTS. [id number] 06:47:00 Test Item Value Reference Range Comments PHOSPHORUS (BEAKER) (test bqcd=857) 2.0 mg/dL 2.3-4.7 [id number] 06:47:00 Test Item Value Reference Range Comments MAGNESIUM (BEAKER) (test bvop=656) 1.7 mg/dL 1.6-2.6 HEPATIC FUNCTION [id number] 06:47:00 Test Item Value Reference Range Comments TOTAL PROTEIN (BEAKER) (test uceq=020) 4.9 gm/dL 6.0-8.3 ALBUMIN (BEAKER) (test rzda=7253) 2.3 g/dL 3.5-5.0 BILIRUBIN TOTAL (BEAKER) (test wfmu=073) 1.1 mg/dL 0.2-1.2 BILIRUBIN DIRECT (BEAKER) (test cbrb=593) 0.6 mg/dL 0.1-0.5 ALKALINE PHOSPHATASE (BEAKER) (test vqcx=704) 119 U/L 40-150 AST (SGOT) (BEAKER) (test nnie=160) 29 U/L 5-34 ALT (SGPT) (BEAKER) (test vrij=037) 13 U/L 6-55 CBC W/PLT COUNT & AUTO [id number] 06:32:00 Test Item Value Reference Range Comments WHITE BLOOD CELL COUNT (BEAKER) (test tdgx=170) 5.3 K/ L 3.5-10.5 RED BLOOD CELL COUNT (BEAKER) (test rfdh=700) 3.05 M/ L 3.93-5.22 HEMOGLOBIN (BEAKER) (test ujpm=187) 8.3 GM/DL 11.2-15.7 HEMATOCRIT (BEAKER) (test lfzn=733) 26.7 % 34.1-44.9 MEAN CORPUSCULAR VOLUME (BEAKER) (test pawj=828) 87.5 fL 79.4-94.8 MEAN CORPUSCULAR HEMOGLOBIN (BEAKER) (test 27.2 pg 25.6-32.2 dhzl=363) MEAN CORPUSCULAR HEMOGLOBIN CONC (BEAKER) (test 31.1 GM/DL 32.2-35.5 psre=304) RED CELL DISTRIBUTION WIDTH (BEAKER) (test 17.4 % 11.7-14.4 plir=296) PLATELET COUNT (BEAKER) (test emvl=270) 161 K/CU MM 150-450 MEAN PLATELET VOLUME (BEAKER) (test memk=675) 8.8 fL 9.4-12.3 NUCLEATED RED BLOOD CELLS (BEAKER) (test 0 /100 WBC 0-0 hhvg=295) NEUTROPHILS RELATIVE PERCENT (BEAKER) (test 52 % dxyd=440) LYMPHOCYTES RELATIVE PERCENT (BEAKER) (test 27 % rdya=819) MONOCYTES RELATIVE PERCENT (BEAKER) (test 9 % ezmq=983) EOSINOPHILS RELATIVE PERCENT (BEAKER) (test 10 % uzue=186) BASOPHILS RELATIVE PERCENT (BEAKER) (test 2 % tcob=831) NEUTROPHILS ABSOLUTE COUNT (BEAKER) (test 2.75 K/ L 1.56-6.13 rgud=667) LYMPHOCYTES ABSOLUTE COUNT (BEAKER) (test 1.42 K/ L 1.18-3.74 oknd=676) MONOCYTES ABSOLUTE COUNT (BEAKER) (test 0.48 K/ L 0.24-0.36 tlwx=267) EOSINOPHILS ABSOLUTE COUNT (BEAKER) (test 0.54 K/ L 0.04-0.36 irsg=579) BASOPHILS ABSOLUTE COUNT (BEAKER) (test 0.08 K/ L 0.01-0.08 aest=219) IMMATURE GRANULOCYTES-RELATIVE PERCENT (BEAKER) 0 % 0-1 (test ljyl=9497) B-TYPE NATRIURETIC FACTOR (BNP)2019-05-20 06:27:00 Test Item Value Reference Range Comments B-TYPE NATRIURETIC PEPTIDE (BEAKER) (test 274 pg/mL 0-100 yzvw=440) VANCOMYCIN LEVEL, [id number] 06:16:00 Test Item Value Reference Range Comments VANCOMYCIN TROUGH (BEAKER) (test lbcl=773) 5.8 ug/mL 10.0-20.0 [id number] 06:11:00 Test Item Value Reference Range Comments D-DIMER QUANTITATIVE (BEAKER) (test flxy=808) 3.95 MG/L FEU <0.50 Intended Use: The [...] exclusion of thrombosis is within 95-100% range.CALCIUM, [id number] 06:04:00 Test Item Value Reference Range Comments CALCIUM IONIZED (BEAKER) (test gubx=045) 1.06 mmol/L 1.12-1.27 PH, BLOOD (BEAKER) (test ojry=6426) 7.43 PROTHROMBIN [id number] 06:02:00 Test Item Value Reference Range Comments PROTIME (BEAKER) (test bgsq=709) 13.8 seconds 11.9-14.2 INR (BEAKER) (test slde=630) 1.1 <=5.9 Effective 04/01/2019: PT Reference Range ChangeNew: 11.9-14.2 Previous: 11.7- 14.7RECOMMENDED COUMADIN/WARFARIN INR THERAPY RANGESSTANDARD DOSE: 2.0-3.0 Includes: PROPHYLAXIS for venous thrombosis, systemic embolization; TREATMENT for venous thrombosis and/or pulmonary embolus.HIGH RISK: Target INR is2.5-3.5 for patients wiht mechanical heart valves.TROPONIN [id number] 02:44:00 Test Item Value Reference Range Comments TROPONIN I (BEAKER) (test qsds=629) 0.01 ng/mL 0.00-0.03 Troponin I (TnI) levels [...] acute neurological disease, and persistent tachyarrhythmia.PROTEIN, RANDOM [id number] 01:50:00 Test Item Value Reference Range Comments PROTEIN, URINE (BEAKER) (test bdvt=5761) 20 mg/dL 0-14 CREATININE, RANDOM [id number] 01:49:00 Test Item Value Reference Range Comments CREATININE URINE (BEAKER) (test aonj=702) 184.6 mg/dL Reference Range: No NormalsRAD, CHEST, 1 VIEW, NON [id number] 01:49: 00Reason for exam:->anasarcaShould this be performed [...] Verified Date/Time: 05/20/2019 01:49 :05 Reading Location: [address] Reading Room POCT-GLUCOSE [id number] 00:36:00 Test Item Value Reference Range Comments POC-GLUCOSE METER (BEAKER) 326 mg/dL 70-[address] [facility] [address] [place] [address] (test adxe=1283) [facility] [address] URINALYSIS W/ [id number] 00:02:00 Test Item Value Reference Range Comments COLOR (BEAKER) (test xyuk=790) Yellow CLARITY (BEAKER) (test bnqt=535) Clear SPECIFIC GRAVITY UA (BEAKER) (test lshs=850) 1.020 1.001-1.035 PH UA (BEAKER) (test kskw=253) 5.5 5.0-8.0 PROTEIN UA (BEAKER) (test fzzn=616) 20 mg/dL Negative GLUCOSE UA (BEAKER) (test enrf=729) 300 mg/dL Negative KETONES UA (BEAKER) (test pgua=646) Negative Negative BILIRUBIN UA (BEAKER) (test rukz=388) Negative Negative BLOOD UA (BEAKER) (test wbew=561) Negative Negative NITRITE UA (BEAKER) (test bnyo=281) Negative Negative LEUKOCYTE ESTERASE UA (BEAKER) (test upwa=833) Small Negative UROBILINOGEN UA (BEAKER) (test cqpz=923) 2.0 mg/dL 0.2-1.0 RBC UA (BEAKER) (test eayu=604) 2 /HPF WBC UA (BEAKER) (test ozxg=038) 2 /HPF MUCUS (BEAKER) (test pcjo=2448) Rare SQUAMOUS EPITHELIAL (BEAKER) (test bawx=649) 6 /HPF HYALINE CASTS (BEAKER) (test zbyn=110) 5 /LPF SOURCE(BEAKER) (test ittf=8547) Urine, Voided T4, [id number] 22:29:00 Test Item Value Reference Range Comments FREE T4 (BEAKER) (test jqsd=473) 0.44 ng/dL 0.70-1.48 HEMOGLOBIN [id number] 22:15:00 Test Item Value Reference Range Comments HEMOGLOBIN A1C (BEAKER) (test dhcd=013) 8.6 % 4.3-6.1 TSH/FREE T4 IF [id number] 21:43:00 Test Item Value Reference Range Comments THYROID STIMULATING HORMONE (BEAKER) (test 72.01 uIU/mL 0.35-4.94 phzb=561) B-TYPE NATRIURETIC FACTOR (BNP)2019-05-19 21:29:00 Test Item Value Reference Range Comments B-TYPE NATRIURETIC PEPTIDE (BEAKER) (test 222 pg/mL 0-100 stpl=054) PROTHROMBIN [id number] 21:26:00 Test Item Value Reference Range Comments PROTIME (BEAKER) (test rtur=921) 13.6 seconds 11.9-14.2 INR (BEAKER) (test czpd=525) 1.1 <=5.9 Effective 04/01/2019: PT Reference Range ChangeNew: 11.9-14.2 Previous: 11.7- 14.7RECOMMENDED COUMADIN/WARFARIN INR THERAPY RANGESSTANDARD DOSE: 2.0-3.0 Includes: PROPHYLAXIS for venous thrombosis, systemic embolization; TREATMENT for venous thrombosis and/or pulmonary embolus.HIGH RISK: Target INR is2.5-3.5 for patients wiht mechanical heart valves.TROPONIN [id number] 21:26:00 Test Item Value Reference Range Comments TROPONIN I (BEAKER) (test zyyj=203) < ng/mL 0.00-0.03 Troponin I (TnI) levels [...] failure, acidosis, acute neurological disease, and persistent tachyarrhythmia.[id number] 21:18:00 Test Item Value Reference Range Comments MAGNESIUM (BEAKER) (test 1.8 mg/dL 1.6-2.6 Specimen markedly hemolyzed ffbh=693) [id number] 21:18:00 Test Item Value Reference Range Comments PHOSPHORUS (BEAKER) (test 2.1 mg/dL 2.3-4.7 Specimen markedly hemolyzed ygyd=142) BASIC METABOLIC [id number] 21:18:00 Test Item Value Reference Range Comments SODIUM (BEAKER) (test 136 meq/L 136-145 dibi=731) POTASSIUM (BEAKER) (test 4.8 meq/L 3.5-5.1 Specimen markedly smmd=012) hemolyzed CHLORIDE (BEAKER) (test 103 meq/L 98-107 atxg=358) CO2 (BEAKER) (test 29 meq/L 22-29 bdgd=140) BLOOD UREA NITROGEN 17 mg/dL 7-21 (BEAKER) (test kfzw=525) CREATININE (BEAKER) (test 1.33 mg/dL 0.57-1.25 Specimen markedly mgtg=554) hemolyzed GLUCOSE RANDOM (BEAKER) 248 mg/dL 70-105 (test ixdd=763) CALCIUM (BEAKER) (test 8.1 mg/dL 8.4-10.2 frem=703) EGFR (BEAKER) (test 41 mL/min/1.73 sq m ESTIMATED GFR IS NOT inkq=5538) ACCURATE CREATININE CLEARANCE IN PREDICTING GLOMERULAR FILTRATION RATE. ESTIMATED GFR IS NOT APPLICABLE FOR DIALYSIS PATIENTS. HEPATIC FUNCTION [id number] 21:18:00 Test Item Value Reference Range Comments TOTAL PROTEIN (BEAKER) (test 6.4 gm/dL 6.0-8.3 Specimen markedly hemolyzed brrf=324) ALBUMIN (BEAKER) (test 2.5 g/dL 3.5-5.0 Specimen markedly hemolyzed qwrb=6787) BILIRUBIN TOTAL (BEAKER) (test 1.3 mg/dL 0.2-1.2 Specimen markedly hemolyzed wrea=584) BILIRUBIN DIRECT (BEAKER) (test 0.3 mg/dL 0.1-0.5 Specimen markedly hemolyzed zypy=601) ALKALINE PHOSPHATASE (BEAKER) 143 U/L 40-150 (test mahq=642) AST (SGOT) (BEAKER) (test 61 U/L 5-34 Specimen markedly hemolyzed lbyh=794) ALT (SGPT) (BEAKER) (test 15 U/L 6-55 Specimen markedly hemolyzed pwfb=809) CBC W/PLT COUNT & AUTO [id number] 20:58:00 Test Item Value Reference Range Comments WHITE BLOOD CELL COUNT (BEAKER) (test panc=853) 6.0 K/ L 3.5-10.5 RED BLOOD CELL COUNT (BEAKER) (test guoz=832) 3.57 M/ L 3.93-5.22 HEMOGLOBIN (BEAKER) (test jpke=710) 9.8 GM/DL 11.2-15.7 HEMATOCRIT (BEAKER) (test erxo=226) 30.6 % 34.1-44.9 MEAN CORPUSCULAR VOLUME (BEAKER) (test knlz=010) 85.7 fL 79.4-94.8 MEAN CORPUSCULAR HEMOGLOBIN (BEAKER) (test 27.5 pg 25.6-32.2 fquk=309) MEAN CORPUSCULAR HEMOGLOBIN CONC (BEAKER) (test 32.0 GM/DL 32.2-35.5 ksqt=522) RED CELL DISTRIBUTION WIDTH (BEAKER) (test 17.4 % 11.7-14.4 yfys=849) PLATELET COUNT (BEAKER) (test liix=000) 199 K/CU MM 150-450 MEAN PLATELET VOLUME (BEAKER) (test myql=162) 9.1 fL 9.4-12.3 NUCLEATED RED BLOOD CELLS (BEAKER) (test 0 /100 WBC 0-0 jlqf=490) NEUTROPHILS RELATIVE PERCENT (BEAKER) (test 53 % avks=496) LYMPHOCYTES RELATIVE PERCENT (BEAKER) (test 27 % bdxj=168) MONOCYTES RELATIVE PERCENT (BEAKER) (test 8 % xubq=238) EOSINOPHILS RELATIVE PERCENT (BEAKER) (test 10 % wcwo=143) BASOPHILS RELATIVE PERCENT (BEAKER) (test 1 % izuj=986) NEUTROPHILS ABSOLUTE COUNT (BEAKER) (test 3.21 K/ L 1.56-6.13 nins=636) LYMPHOCYTES ABSOLUTE COUNT (BEAKER) (test 1.62 K/ L 1.18-3.74 wekd=737) MONOCYTES ABSOLUTE COUNT (BEAKER) (test 0.50 K/ L 0.24-0.36 ftxm=809) EOSINOPHILS ABSOLUTE COUNT (BEAKER) (test 0.62 K/ L 0.04-0.36 cstk=323) BASOPHILS ABSOLUTE COUNT (BEAKER) (test 0.08 K/ L 0.01-0.08 wtzy=807) IMMATURE GRANULOCYTES-RELATIVE PERCENT (BEAKER) 0 % 0-1 (test hhmx=6428) BODY FLUID CULTURE + GRAM [id number] 13:44:00 Test Item Value Reference Range Comments CULTURE (BEAKER) (test nnvu=0280) No growth GRAM STAIN RESULT (BEAKER) (test <1+ White blood cells seen vomp=1455) GRAM STAIN RESULT (BEAKER) (test No organisms seen ebhb=40370) BODY FLUID CULTURE + GRAM [id number] 14:06:00 Test Item Value Reference Range Comments CULTURE (BEAKER) (test eouq=8450) No growth GRAM STAIN RESULT (BEAKER) (test No White blood cells seen mtuw=3673) GRAM STAIN RESULT (BEAKER) (test No organisms seen cufg=33144) BASIC METABOLIC [id number] 08:41:00 Test Item Value Reference Range Comments SODIUM (BEAKER) (test 132 meq/L 136-145 onaa=001) POTASSIUM (BEAKER) (test 4.4 meq/L 3.5-5.1 wfmt=814) CHLORIDE (BEAKER) (test 100 meq/L 98-107 wukd=126) CO2 (BEAKER) (test 25 meq/L 22-29 ssrs=794) BLOOD UREA NITROGEN 53 mg/dL 7-21 (BEAKER) (test usct=442) CREATININE (BEAKER) (test 1.80 mg/dL 0.57-1.25 ctma=263) GLUCOSE RANDOM (BEAKER) 211 mg/dL 70-105 (test rduc=388) CALCIUM (BEAKER) (test 9.0 mg/dL 8.4-10.2 mckd=460) EGFR (BEAKER) (test 29 mL/min/1.73 sq m ESTIMATED GFR IS NOT jekg=7801) ACCURATE CREATININE CLEARANCE IN PREDICTING GLOMERULAR FILTRATION RATE. ESTIMATED GFR IS NOT APPLICABLE FOR DIALYSIS PATIENTS. POCT-GLUCOSE [id number] 08:16:00 Test Item Value Reference Range Comments POC-GLUCOSE METER (BEAKER) 213 mg/dL 70-[address] [facility] [address] [place] [place] [address] (test xfqo=4406) [facility] [address] HEPATIC FUNCTION [id number] 06:43:00 Test Item Value Reference Range Comments TOTAL PROTEIN (BEAKER) (test cuxl=465) 5.7 gm/dL 6.0-8.3 ALBUMIN (BEAKER) (test ffjz=9963) 4.2 g/dL 3.5-5.0 BILIRUBIN TOTAL (BEAKER) (test tbvg=689) 1.6 mg/dL 0.2-1.2 BILIRUBIN DIRECT (BEAKER) (test xarb=475) 0.8 mg/dL 0.1-0.5 ALKALINE PHOSPHATASE (BEAKER) (test aeeh=313) 95 U/L 40-150 AST (SGOT) (BEAKER) (test qjgu=053) 71 U/L 5-34 ALT (SGPT) (BEAKER) (test cxbv=295) 68 U/L 6-55 POCT-GLUCOSE [id number] 22:00:00 Test Item Value Reference Range Comments POC-GLUCOSE METER (BEAKER) 341 mg/dL 70-110 Notified ALEXI ENNIS/TESTED AT [facility] (test fauj=5107) [address] [place] [id number] BODY FLUID CELL COUNT WITH [id number] 20:00:00 Test Item Value Reference Range Comments APPEARANCE FLUID (BEAKER) (test pmlu=107) Hazy Clear COLOR FLUID (BEAKER) (test rsey=858) Straw Colorless, Straw RBC FLUID (BEAKER) (test obga=708) 4000 /cu mm <=1 ADJUSTED WBC FLUID (BEAKER) (test ruyw=2949) 140 /cu mm <=5 LINING CELLS (BEAKER) (test lydy=0428) 1 /cu mm <=1 NEUTROPHILS FLUID (BEAKER) (test mjsx=4834) 1 % LYMPHS FLUID (BEAKER) (test luvr=250) 30 % MONO/MACROPHAGE FLUID (BEAKER) (test mouy=940) 69 % EOSINOPHILS FLUID (BEAKER) (test swso=066) 0 % BASO FLUID (BEAKER) (test kfuk=333) 0 % CONTAINER BODY FLUID (BEAKER) (test frhh=8565) EDTA Tube U/S, [id number] 16:42:00Reason for exam:->ascites limited 6 litersFINAL REPORT PROCEDURE: Ultrasound-guided paracentesis. INDICATION: 59-year-old woman with ascites. DESCRIPTION: After obtaining informed written consent, ultrasound scan of the abdomen identified ascites in the right lower quadrant. The overlying skin was prepped and draped in the usual, sterile fashion and local 2% lidocaine anesthesia was administered. A 5 Indian catheter was advanced into the peritoneal cavity and 6000 cc of serous fluid was removed. The catheter was removed without immediate complication. Samples were sent for analysis. IMPRESSION:Uncomplicated ultrasound-guided paracentesis with 6000 cc fluid removed. Signed: Antwon Bose MDReport Verified Date/Time: 02/24/2019 16:42:07 Reading Location: [address] Ultrasound Reading Room POCT-GLUCOSE [id number] 13:07:00 Test Item Value Reference Range Comments POC-GLUCOSE METER (BEAKER) 290 mg/dL 70-110 TESTED AT [address] (test znfm=0549) [facility] [address] PROTHROMBIN [id number] 12:01:00 Test Item Value Reference Range Comments PROTIME (BEAKER) (test beib=205) 14.3 seconds 11.7-14.7 INR (BEAKER) (test jzhy=948) 1.1 <=5.9 RECOMMENDED COUMADIN/WARFARIN INR THERAPY RANGESSTANDARD DOSE: 2.0 - 3.0 Includes: PROPHYLAXIS forvenous thrombosis, systemic embolization; TREATMENT for venous thrombosis and/or pulmonary embolus.HIGH RISK: Target INR is 2.5-3.5 for patients with mechanical heart valves.[id number] 12:01:00 Test Item Value Reference Range Comments PARTIAL THROMBOPLASTIN TIME (BEAKER) (test 32.5 seconds 22.5-36.0 ewbv=738) POCT-GLUCOSE [id number] 08:39:00 Test Item Value Reference Range Comments POC-GLUCOSE METER (BEAKER) 279 mg/dL 70-[address] [facility] [address] [facility] (test quat=8072) [place] [address] CALCIUM, [id number] 07:04:00 Test Item Value Reference Range Comments CALCIUM IONIZED (BEAKER) (test fazn=009) 1.08 mmol/L 1.12-1.27 PH, BLOOD (BEAKER) (test fwml=7893) 7.38 COMPREHENSIVE METABOLIC [id number] 05:59:00 Test Item Value Reference Range Comments TOTAL PROTEIN (BEAKER) 5.5 gm/dL 6.0-8.3 (test vwot=679) ALBUMIN (BEAKER) (test 3.8 g/dL 3.5-5.0 wsex=8928) ALKALINE PHOSPHATASE 125 U/L 40-150 (BEAKER) (test lvtf=677) BILIRUBIN TOTAL (BEAKER) 0.9 mg/dL 0.2-1.2 (test ikdg=677) SODIUM (BEAKER) (test 130 meq/L 136-145 aady=486) POTASSIUM (BEAKER) (test 4.0 meq/L 3.5-5.1 dzej=855) CHLORIDE (BEAKER) (test 99 meq/L 98-107 pdjm=931) CO2 (BEAKER) (test 23 meq/L 22-29 kpyi=099) BLOOD UREA NITROGEN 51 mg/dL 7-21 (BEAKER) (test oxkr=538) CREATININE (BEAKER) (test 2.07 mg/dL 0.57-1.25 urel=067) GLUCOSE RANDOM (BEAKER) 320 mg/dL 70-105 (test gsem=652) CALCIUM (BEAKER) (test 8.7 mg/dL 8.4-10.2 tuhx=489) AST (SGOT) (BEAKER) (test 111 U/L 5-34 heni=745) ALT (SGPT) (BEAKER) (test 98 U/L 6-55 bviq=670) EGFR (BEAKER) (test 24 mL/min/1.73 sq m ESTIMATED GFR IS NOT svaf=0898) ACCURATE CREATININE CLEARANCE IN PREDICTING GLOMERULAR FILTRATION RATE. ESTIMATED GFR IS NOT APPLICABLE FOR DIALYSIS PATIENTS. [id number] 05:58:00 Test Item Value Reference Range Comments PHOSPHORUS (BEAKER) (test lwwi=608) 2.1 mg/dL 2.3-4.7 [id number] 05:58:00 Test Item Value Reference Range Comments MAGNESIUM (BEAKER) (test qaqa=097) 2.3 mg/dL 1.6-2.6 HEPATIC FUNCTION [id number] 05:58:00 Test Item Value Reference Range Comments TOTAL PROTEIN (BEAKER) (test stpf=563) 5.5 gm/dL 6.0-8.3 ALBUMIN (BEAKER) (test qxsm=6999) 3.8 g/dL 3.5-5.0 BILIRUBIN TOTAL (BEAKER) (test enyz=271) 0.9 mg/dL 0.2-1.2 BILIRUBIN DIRECT (BEAKER) (test gdgb=200) 0.4 mg/dL 0.1-0.5 ALKALINE PHOSPHATASE (BEAKER) (test gzfr=983) 125 U/L 40-150 AST (SGOT) (BEAKER) (test harz=902) 111 U/L 5-34 ALT (SGPT) (BEAKER) (test ksft=787) 98 U/L 6-55 CBC W/PLT COUNT & AUTO [id number] 05:29:00 Test Item Value Reference Range Comments WHITE BLOOD CELL COUNT (BEAKER) (test ibst=708) 5.9 K/ L 3.5-10.5 RED BLOOD CELL COUNT (BEAKER) (test yucq=999) 3.00 M/ L 3.93-5.22 HEMOGLOBIN (BEAKER) (test wmqy=600) 8.5 GM/DL 11.2-15.7 HEMATOCRIT (BEAKER) (test juzn=650) 25.3 % 34.1-44.9 MEAN CORPUSCULAR VOLUME (BEAKER) (test hnbn=804) 84.3 fL 79.4-94.8 MEAN CORPUSCULAR HEMOGLOBIN (BEAKER) (test 28.3 pg 25.6-32.2 regn=541) MEAN CORPUSCULAR HEMOGLOBIN CONC (BEAKER) (test 33.6 GM/DL 32.2-35.5 mnxq=611) RED CELL DISTRIBUTION WIDTH (BEAKER) (test 14.8 % 11.7-14.4 gxsm=738) PLATELET COUNT (BEAKER) (test rezc=910) 146 K/CU MM 150-450 MEAN PLATELET VOLUME (BEAKER) (test ykpi=213) 10.1 fL 9.4-12.3 NUCLEATED RED BLOOD CELLS (BEAKER) (test 0 /100 WBC 0-0 vzzp=173) NEUTROPHILS RELATIVE PERCENT (BEAKER) (test 67 % obza=302) LYMPHOCYTES RELATIVE PERCENT (BEAKER) (test 16 % ceim=523) MONOCYTES RELATIVE PERCENT (BEAKER) (test 10 % gfgd=546) EOSINOPHILS RELATIVE PERCENT (BEAKER) (test 6 % uzer=925) BASOPHILS RELATIVE PERCENT (BEAKER) (test 1 % wjuf=541) NEUTROPHILS ABSOLUTE COUNT (BEAKER) (test 3.94 K/ L 1.56-6.13 urqo=138) LYMPHOCYTES ABSOLUTE COUNT (BEAKER) (test 0.96 K/ L 1.18-3.74 xcun=546) MONOCYTES ABSOLUTE COUNT (BEAKER) (test 0.57 K/ L 0.24-0.36 dnhu=012) EOSINOPHILS ABSOLUTE COUNT (BEAKER) (test 0.37 K/ L 0.04-0.36 aytu=911) BASOPHILS ABSOLUTE COUNT (BEAKER) (test 0.03 K/ L 0.01-0.08 cjto=365) IMMATURE GRANULOCYTES-RELATIVE PERCENT (BEAKER) 0 % 0-1 (test qelm=1373) POCT-GLUCOSE [id number] 21:01:00 Test Item Value Reference Range Comments POC-GLUCOSE METER (BEAKER) 371 mg/dL 70-110 Notified ALEXI ENNIS/TESTED AT [facility] (test vtik=8186) [address] [place] [address] POCT-GLUCOSE [id number] 17:30:00 Test Item Value Reference Range Comments POC-GLUCOSE METER (BEAKER) 389 mg/dL 70-110 TESTED AT [address] (test lnif=6889) [facility] [address] POCT-GLUCOSE [id number] 08:50:00 Test Item Value Reference Range Comments POC-GLUCOSE METER (BEAKER) 303 mg/dL 70-110 TESTED AT [address] (test qlhu=7842) [facility] [address] POCT-GLUCOSE [id number] 08:27:00 Test Item Value Reference Range Comments POC-GLUCOSE METER (BEAKER) 342 mg/dL 70-110 Will Repeat Test/TESTED AT (test iteb=8750) [facility] [address] [facility] [address] CALCIUM, [id number] 07:20:00 Test Item Value Reference Range Comments CALCIUM IONIZED (BEAKER) (test ubxp=015) 0.98 mmol/L 1.12-1.27 PH, BLOOD (BEAKER) (test bnpv=8498) 7.41 COMPREHENSIVE METABOLIC [id number] 07:05:00 Test Item Value Reference Range Comments TOTAL PROTEIN (BEAKER) 5.0 gm/dL 6.0-8.3 (test ncpz=867) ALBUMIN (BEAKER) (test 3.3 g/dL 3.5-5.0 miyg=8150) ALKALINE PHOSPHATASE 126 U/L 40-150 (BEAKER) (test rqop=427) BILIRUBIN TOTAL (BEAKER) 1.2 mg/dL 0.2-1.2 (test txgi=959) SODIUM (BEAKER) (test 128 meq/L 136-145 mffg=042) POTASSIUM (BEAKER) (test 4.1 meq/L 3.5-5.1 jlti=094) CHLORIDE (BEAKER) (test 98 meq/L 98-107 awxc=622) CO2 (BEAKER) (test 20 meq/L 22-29 qunb=629) BLOOD UREA NITROGEN 43 mg/dL 7-21 (BEAKER) (test prvv=683) CREATININE (BEAKER) (test 2.39 mg/dL 0.57-1.25 rcem=544) GLUCOSE RANDOM (BEAKER) 305 mg/dL 70-105 (test kybl=579) CALCIUM (BEAKER) (test 8.1 mg/dL 8.4-10.2 jnnw=535) AST (SGOT) (BEAKER) (test 173 U/L 5-34 mojg=662) ALT (SGPT) (BEAKER) (test 143 U/L 6-55 jmms=312) EGFR (BEAKER) (test 21 mL/min/1.73 sq m ESTIMATED GFR IS NOT xrfx=1442) ACCURATE CREATININE CLEARANCE IN PREDICTING GLOMERULAR FILTRATION RATE. ESTIMATED GFR IS NOT APPLICABLE FOR DIALYSIS PATIENTS. [id number] 06:56:00 Test Item Value Reference Range Comments PHOSPHORUS (BEAKER) (test kknu=360) 2.5 mg/dL 2.3-4.7 [id number] 06:56:00 Test Item Value Reference Range Comments MAGNESIUM (BEAKER) (test wuaj=633) 1.9 mg/dL 1.6-2.6 HEPATIC FUNCTION [id number] 06:56:00 Test Item Value Reference Range Comments TOTAL PROTEIN (BEAKER) (test cylk=170) 5.0 gm/dL 6.0-8.3 ALBUMIN (BEAKER) (test tkgy=6533) 3.3 g/dL 3.5-5.0 BILIRUBIN TOTAL (BEAKER) (test mwij=694) 1.2 mg/dL 0.2-1.2 BILIRUBIN DIRECT (BEAKER) (test wahc=207) 0.6 mg/dL 0.1-0.5 ALKALINE PHOSPHATASE (BEAKER) (test zmab=422) 126 U/L 40-150 AST (SGOT) (BEAKER) (test dxjo=133) 173 U/L 5-34 ALT (SGPT) (BEAKER) (test doaj=614) 143 U/L 6-55 CBC W/PLT COUNT & AUTO [id number] 06:17:00 Test Item Value Reference Range Comments WHITE BLOOD CELL COUNT (BEAKER) (test gdbi=766) 5.7 K/ L 3.5-10.5 RED BLOOD CELL COUNT (BEAKER) (test skss=817) 3.40 M/ L 3.93-5.22 HEMOGLOBIN (BEAKER) (test pthk=601) 9.2 GM/DL 11.2-15.7 HEMATOCRIT (BEAKER) (test qjsy=370) 29.1 % 34.1-44.9 MEAN CORPUSCULAR VOLUME (BEAKER) (test wrnb=559) 85.6 fL 79.4-94.8 MEAN CORPUSCULAR HEMOGLOBIN (BEAKER) (test 27.1 pg 25.6-32.2 kmpa=085) MEAN CORPUSCULAR HEMOGLOBIN CONC (BEAKER) (test 31.6 GM/DL 32.2-35.5 prag=145) RED CELL DISTRIBUTION WIDTH (BEAKER) (test 14.7 % 11.7-14.4 ejji=017) PLATELET COUNT (BEAKER) (test eimg=261) 128 K/CU MM 150-450 MEAN PLATELET VOLUME (BEAKER) (test pujn=580) 10.3 fL 9.4-12.3 NUCLEATED RED BLOOD CELLS (BEAKER) (test 0 /100 WBC 0-0 ebos=191) NEUTROPHILS RELATIVE PERCENT (BEAKER) (test 69 % ogcb=136) LYMPHOCYTES RELATIVE PERCENT (BEAKER) (test 15 % eyfv=487) MONOCYTES RELATIVE PERCENT (BEAKER) (test 9 % haxt=754) EOSINOPHILS RELATIVE PERCENT (BEAKER) (test 6 % mrfc=381) BASOPHILS RELATIVE PERCENT (BEAKER) (test 1 % qgmc=080) NEUTROPHILS ABSOLUTE COUNT (BEAKER) (test 3.91 K/ L 1.56-6.13 hcch=412) LYMPHOCYTES ABSOLUTE COUNT (BEAKER) (test 0.86 K/ L 1.18-3.74 fvgx=541) MONOCYTES ABSOLUTE COUNT (BEAKER) (test 0.51 K/ L 0.24-0.36 bsrj=179) EOSINOPHILS ABSOLUTE COUNT (BEAKER) (test 0.35 K/ L 0.04-0.36 xbjz=116) BASOPHILS ABSOLUTE COUNT (BEAKER) (test 0.03 K/ L 0.01-0.08 jjia=021) IMMATURE GRANULOCYTES-RELATIVE PERCENT (BEAKER) 0 % 0-1 (test qtyx=6588) BODY FLUID CELL COUNT WITH [id number] 17:06:00 Test Item Value Reference Range Comments APPEARANCE FLUID (BEAKER) (test gjjk=556) Hazy Clear COLOR FLUID (BEAKER) (test tkfo=751) Yellow Colorless, Straw RBC FLUID (BEAKER) (test hqut=853) 6000 /cu mm <=1 ADJUSTED WBC FLUID (BEAKER) (test fodg=5413) 125 /cu mm <=5 LINING CELLS (BEAKER) (test bfya=3074) 2 /cu mm <=1 NEUTROPHILS FLUID (BEAKER) (test wius=8833) 6 % LYMPHS FLUID (BEAKER) (test dwgf=859) 21 % MONO/MACROPHAGE FLUID (BEAKER) (test fkrt=893) 73 % EOSINOPHILS FLUID (BEAKER) (test list=241) 0 % BASO FLUID (BEAKER) (test lbqr=578) 0 % CONTAINER BODY FLUID (BEAKER) (test fjve=6500) EDTA Tube POCT-GLUCOSE [id number] 16:40:00 Test Item Value Reference Range Comments POC-GLUCOSE METER (BEAKER) 396 mg/dL 70-[address] [facility] [address] (test ascx=5803) [facility] [address] U/S, [id number] 16:12:00limit to 6 LReason for exam:->ascites, limit to 6 LFINAL REPORT Paracentesis dated 02/22/2019 Procedure: Ultrasound-guided paracentesis. Preprocedure diagnosis: Ascites Postprocedure diagnosis: Ascites Conscious sedation: None. Radiologist: Giovanni Haas M.D. Magneto Repairer: None Anesthesia: 1% Xylocaine mixed with sodium bicarbonate local anesthesia. Technique: After obtaining informed consent, ultrasound-guided paracentesis was performed under usual sterile technique. Using a 5 palauan drainage catheter, puncture was made in the right lower quadrant abdomen. Approximately 6000 cc of serous fluid was removed. Patient tolerated the procedure well without complication. Complication: None Graft/ Implant: None Estimated Blood Loss: None Impression: Ultrasound-guided paracentesis. Signed: Giovanni Haas Verified Date/Time: 02/22/2019 16:12 :23 Reading Location: [facility] C013Y CT Body Reading Room RAD, CHEST, 1 VIEW, NON [id number] 12:22:00Reason for exam:->coughShould this be performed at [...] [facility] POCT-GLUCOSE [id number] 07:55:00 Test Item Value Reference Range Comments POC-GLUCOSE METER (BEAKER) 317 mg/dL 70-110 TESTED AT [address] (test aiau=5158) [facility] [address] POCT-GLUCOSE [id number] 07:24:00 Test Item Value Reference Range Comments POC-GLUCOSE METER (BEAKER) 386 mg/dL 70-110 Notified ALEXI ENNIS/TESTED AT [facility] (test wwfp=6581) [address] [place] [address] POCT-GLUCOSE [id number] 07:24:00 Test Item Value Reference Range Comments POC-GLUCOSE METER (BEAKER) 295 mg/dL 70-110 TESTED AT [address] (test fibx=4297) [facility] [address] POCT-GLUCOSE [id number] 07:24:00 Test Item Value Reference Range Comments POC-GLUCOSE METER (BEAKER) 256 mg/dL 70-110 TESTED AT [address] (test solf=9332) [facility] [address] BASIC METABOLIC [id number] 06:50:00 Test Item Value Reference Range Comments SODIUM (BEAKER) (test 128 meq/L 136-145 sbbw=469) POTASSIUM (BEAKER) (test 4.0 meq/L 3.5-5.1 nvad=135) CHLORIDE (BEAKER) (test 100 meq/L 98-107 qpia=162) CO2 (BEAKER) (test 21 meq/L 22-29 uxvn=716) BLOOD UREA NITROGEN 40 mg/dL 7-21 (BEAKER) (test wylx=519) CREATININE (BEAKER) (test 2.62 mg/dL 0.57-1.25 mufx=861) GLUCOSE RANDOM (BEAKER) 351 mg/dL 70-105 (test juuf=428) CALCIUM (BEAKER) (test 8.0 mg/dL 8.4-10.2 stxu=602) EGFR (BEAKER) (test 19 mL/min/1.73 sq m ESTIMATED GFR IS NOT ottj=5161) ACCURATE CREATININE CLEARANCE IN PREDICTING GLOMERULAR FILTRATION RATE. ESTIMATED GFR IS NOT APPLICABLE FOR DIALYSIS PATIENTS. [id number] 06:46:00 Test Item Value Reference Range Comments MAGNESIUM (BEAKER) (test seyp=163) 1.9 mg/dL 1.6-2.6 BLOOD [id number] 20:01:00 Test Item Value Reference Range Comments CULTURE (BEAKER) (test dstm=8557) No growth in 5 days BLOOD [id number] 20:01:00 Test Item Value Reference Range Comments CULTURE (BEAKER) (test dhmh=7926) No growth in 5 days POCT-GLUCOSE [id number] 08:39:00 Test Item Value Reference Range Comments POC-GLUCOSE METER (BEAKER) 300 mg/dL 70-[address] [facility] [address] (test mgqp=8837) [facility] [address] POCT-GLUCOSE [id number] 08:39:00 Test Item Value Reference Range Comments POC-GLUCOSE METER (BEAKER) 330 mg/dL 70-110 Notified ALEXI ENNIS/TESTED AT [facility] (test tppm=8993) [address] [facility] [address] COMPREHENSIVE METABOLIC [id number] 08:25:00 Test Item Value Reference Range Comments TOTAL PROTEIN (BEAKER) 4.9 gm/dL 6.0-8.3 (test xros=690) ALBUMIN (BEAKER) (test 3.3 g/dL 3.5-5.0 hnru=1384) ALKALINE PHOSPHATASE 129 U/L 40-150 (BEAKER) (test kqzl=797) BILIRUBIN TOTAL (BEAKER) 1.2 mg/dL 0.2-1.2 (test apev=741) SODIUM (BEAKER) (test 130 meq/L 136-145 dpmy=554) POTASSIUM (BEAKER) (test 4.5 meq/L 3.5-5.1 jchu=884) CHLORIDE (BEAKER) (test 102 meq/L 98-107 tfgj=997) CO2 (BEAKER) (test 20 meq/L 22-29 byar=188) BLOOD UREA NITROGEN 32 mg/dL 7-21 (BEAKER) (test pydw=457) CREATININE (BEAKER) (test 2.28 mg/dL 0.57-1.25 spib=625) GLUCOSE RANDOM (BEAKER) 341 mg/dL 70-105 (test wtar=202) CALCIUM (BEAKER) (test 8.1 mg/dL 8.4-10.2 kuun=632) AST (SGOT) (BEAKER) (test 851 U/L 5-34 wgjf=334) ALT (SGPT) (BEAKER) (test 345 U/L 6-55 vcoo=350) EGFR (BEAKER) (test 22 mL/min/1.73 sq m ESTIMATED GFR IS NOT nhmu=5255) ACCURATE CREATININE CLEARANCE IN PREDICTING GLOMERULAR FILTRATION RATE. ESTIMATED GFR IS NOT APPLICABLE FOR DIALYSIS PATIENTS. [id number] 08:19:00 Test Item Value Reference Range Comments PHOSPHORUS (BEAKER) (test wyrv=986) 2.3 mg/dL 2.3-4.7 [id number] 08:19:00 Test Item Value Reference Range Comments MAGNESIUM (BEAKER) (test dfbb=836) 1.9 mg/dL 1.6-2.6 CALCIUM, [id number] 07:20:00 Test Item Value Reference Range Comments CALCIUM IONIZED (BEAKER) (test xmar=375) 0.98 mmol/L 1.12-1.27 PH, BLOOD (BEAKER) (test eecp=0121) 7.42 CBC W/PLT COUNT & AUTO [id number] 06:36:00 Test Item Value Reference Range Comments WHITE BLOOD CELL COUNT (BEAKER) (test umur=467) 8.1 K/ L 3.5-10.5 RED BLOOD CELL COUNT (BEAKER) (test gqkx=927) 3.43 M/ L 3.93-5.22 HEMOGLOBIN (BEAKER) (test vlrh=285) 9.2 GM/DL 11.2-15.7 HEMATOCRIT (BEAKER) (test hobn=816) 29.3 % 34.1-44.9 MEAN CORPUSCULAR VOLUME (BEAKER) (test iohz=076) 85.4 fL 79.4-94.8 MEAN CORPUSCULAR HEMOGLOBIN (BEAKER) (test 26.8 pg 25.6-32.2 nxvb=970) MEAN CORPUSCULAR HEMOGLOBIN CONC (BEAKER) (test 31.4 GM/DL 32.2-35.5 ugsi=425) RED CELL DISTRIBUTION WIDTH (BEAKER) (test 14.6 % 11.7-14.4 lftu=068) PLATELET COUNT (BEAKER) (test nlul=606) 132 K/CU MM 150-450 MEAN PLATELET VOLUME (BEAKER) (test zspl=815) 9.3 fL 9.4-12.3 NUCLEATED RED BLOOD CELLS (BEAKER) (test 0 /100 WBC 0-0 xylp=175) NEUTROPHILS RELATIVE PERCENT (BEAKER) (test 77 % qnwt=388) LYMPHOCYTES RELATIVE PERCENT (BEAKER) (test 13 % heor=118) MONOCYTES RELATIVE PERCENT (BEAKER) (test 8 % wusp=157) EOSINOPHILS RELATIVE PERCENT (BEAKER) (test 2 % mgvw=114) BASOPHILS RELATIVE PERCENT (BEAKER) (test 1 % yuuq=746) NEUTROPHILS ABSOLUTE COUNT (BEAKER) (test 6.17 K/ L 1.56-6.13 eibv=426) LYMPHOCYTES ABSOLUTE COUNT (BEAKER) (test 1.02 K/ L 1.18-3.74 vizh=332) MONOCYTES ABSOLUTE COUNT (BEAKER) (test 0.61 K/ L 0.24-0.36 teex=625) EOSINOPHILS ABSOLUTE COUNT (BEAKER) (test 0.18 K/ L 0.04-0.36 tskd=980) BASOPHILS ABSOLUTE COUNT (BEAKER) (test 0.05 K/ L 0.01-0.08 sadd=233) IMMATURE GRANULOCYTES-RELATIVE PERCENT (BEAKER) 1 % 0-1 (test azlz=5804) BASIC METABOLIC [id number] 19:24:00 Test Item Value Reference Range Comments SODIUM (BEAKER) (test 132 meq/L 136-145 miul=638) POTASSIUM (BEAKER) (test 4.8 meq/L 3.5-5.1 cubs=845) CHLORIDE (BEAKER) (test 103 meq/L 98-107 uyko=395) CO2 (BEAKER) (test 20 meq/L 22-29 bimw=176) BLOOD UREA NITROGEN 30 mg/dL 7-21 (BEAKER) (test khoa=592) CREATININE (BEAKER) (test 1.85 mg/dL 0.57-1.25 oqgs=145) GLUCOSE RANDOM (BEAKER) 297 mg/dL 70-105 (test clek=619) CALCIUM (BEAKER) (test 8.7 mg/dL 8.4-10.2 jqli=981) EGFR (BEAKER) (test 28 mL/min/1.73 sq m ESTIMATED GFR IS NOT uyij=7768) ACCURATE CREATININE CLEARANCE IN PREDICTING GLOMERULAR FILTRATION RATE. ESTIMATED GFR IS NOT APPLICABLE FOR DIALYSIS PATIENTS. Please draw [address] Quiroz at [phone] with results.Call [id number] 19:22:00 Test Item Value Reference Range Comments SODIUM (BEAKER) (test qphn=447) 132 meq/L 136-145 POTASSIUM (BEAKER) (test muyu=764) 4.8 meq/L 3.5-5.1 CHLORIDE (BEAKER) (test ihut=766) 103 meq/L 98-107 CO2 (BEAKER) (test mjcw=779) 20 meq/L 22-29 Please draw 4 hours after [address]. Page Dr. Quiroz at [phone] with results.Call [id number] 18:11:00 Test Item Value Reference Range Comments POC-GLUCOSE METER (BEAKER) 314 mg/dL 70-110 TESTED AT [address] (test tbhj=8995) [place] [id number] POCT-GLUCOSE [id number] 17:29:00 Test Item Value Reference Range Comments POC-GLUCOSE METER (BEAKER) 255 mg/dL 70-110 TESTED AT [address] (test mzmg=2156) [facility] [address] POCT-GLUCOSE [id number] 13:02:00 Test Item Value Reference Range Comments POC-GLUCOSE METER (BEAKER) 289 mg/dL 70-110 TESTED AT [address] (test xjrc=4609) [place] [id number] BODY FLUID CULTURE + GRAM [id number] 12:08:00 Test Item Value Reference Range Comments CULTURE (BEAKER) (test ruhu=3224) No growth GRAM STAIN RESULT (BEAKER) (test <1+ WBCs gmdt=5486) GRAM STAIN RESULT (BEAKER) (test No organisms seen ypce=04188) SEAMUS [id number] 09:29:00Reason for exam:->cirrhosis/ portal hypertension , refractory [...] and a bleeding placement of a 10 Indian sheath from theright hepatic vein to the [...] 1 L of yellow fluid. The 5 Indian needle/catheter was inserted with real-time ultrasound guidance into the peritoneal cavity in the right lateral abdomen following sterile preparation. Following this, the sheath catheter was removed. CONCLUSION: Successful TIPS and paracentesis. Signed: Yulia Kaba MDReport Verified Date/Time: 02/20/2019 09:29:18 Reading Location : [place] [address] Angio Body Reading Room CALCIUM, [id number] 06:43:00 Test Item Value Reference Range Comments CALCIUM IONIZED (BEAKER) (test omsi=025) 1.02 mmol/L 1.12-1.27 PH, BLOOD (BEAKER) (test kxxz=2455) 7.40 [id number] 06:12:00 Test Item Value Reference Range Comments PHOSPHORUS (BEAKER) (test vejh=484) 2.5 mg/dL 2.3-4.7 [id number] 06:12:00 Test Item Value Reference Range Comments MAGNESIUM (BEAKER) (test hyey=477) 1.6 mg/dL 1.6-2.6 HEPATIC FUNCTION [id number] 06:12:00 Test Item Value Reference Range Comments TOTAL PROTEIN (BEAKER) (test dfqy=443) 5.3 gm/dL 6.0-8.3 ALBUMIN (BEAKER) (test kivg=1996) 3.6 g/dL 3.5-5.0 BILIRUBIN TOTAL (BEAKER) (test vuca=171) 1.2 mg/dL 0.2-1.2 BILIRUBIN DIRECT (BEAKER) (test hnqd=626) 0.6 mg/dL 0.1-0.5 ALKALINE PHOSPHATASE (BEAKER) (test utkp=618) 80 U/L 40-150 AST (SGOT) (BEAKER) (test hroh=988) 99 U/L 5-34 ALT (SGPT) (BEAKER) (test kiuy=598) 52 U/L 6-55 COMPREHENSIVE METABOLIC [id number] 06:12:00 Test Item Value Reference Range Comments TOTAL PROTEIN (BEAKER) 5.3 gm/dL 6.0-8.3 (test jqkv=443) ALBUMIN (BEAKER) (test 3.6 g/dL 3.5-5.0 marj=9080) ALKALINE PHOSPHATASE 80 U/L 40-150 (BEAKER) (test eoag=017) BILIRUBIN TOTAL (BEAKER) 1.2 mg/dL 0.2-1.2 (test gnpr=008) SODIUM (BEAKER) (test 133 meq/L 136-145 dlvn=541) POTASSIUM (BEAKER) (test 5.4 meq/L 3.5-5.1 pudh=150) CHLORIDE (BEAKER) (test 104 meq/L 98-107 gxhv=949) CO2 (BEAKER) (test 22 meq/L 22-29 jsce=240) BLOOD UREA NITROGEN 27 mg/dL 7-21 (BEAKER) (test zrpc=310) CREATININE (BEAKER) (test 1.58 mg/dL 0.57-1.25 xqhj=986) GLUCOSE RANDOM (BEAKER) 300 mg/dL 70-105 (test loog=171) CALCIUM (BEAKER) (test 8.4 mg/dL 8.4-10.2 vvio=549) AST (SGOT) (BEAKER) (test 99 U/L 5-34 rubp=481) ALT (SGPT) (BEAKER) (test 52 U/L 6-55 bwez=036) EGFR (BEAKER) (test 33 mL/min/1.73 sq m ESTIMATED GFR IS NOT qqob=2055) ACCURATE CREATININE CLEARANCE IN PREDICTING GLOMERULAR FILTRATION RATE. ESTIMATED GFR IS NOT APPLICABLE FOR DIALYSIS PATIENTS. PROTHROMBIN [id number] 05:57:00 Test Item Value Reference Range Comments PROTIME (BEAKER) (test ufhp=226) 16.4 seconds 11.7-14.7 INR (BEAKER) (test qnqr=809) 1.3 <=5.9 RECOMMENDED COUMADIN/WARFARIN INR THERAPY RANGESSTANDARD DOSE: 2.0 - 3.0 Includes: PROPHYLAXIS forvenous thrombosis, systemic embolization; TREATMENT for venous thrombosis and/or pulmonary embolus.HIGH RISK: Target INR is 2.5-3.5 for patients with mechanical heart valves.CBC W/PLT COUNT & AUTO [id number] 05:54:00 Test Item Value Reference Range Comments WHITE BLOOD CELL COUNT (BEAKER) (test iyjs=189) 7.9 K/ L 3.5-10.5 RED BLOOD CELL COUNT (BEAKER) (test cimz=510) 3.24 M/ L 3.93-5.22 HEMOGLOBIN (BEAKER) (test znmj=706) 8.9 GM/DL 11.2-15.7 HEMATOCRIT (BEAKER) (test gorh=603) 28.0 % 34.1-44.9 MEAN CORPUSCULAR VOLUME (BEAKER) (test yoej=060) 86.4 fL 79.4-94.8 MEAN CORPUSCULAR HEMOGLOBIN (BEAKER) (test 27.5 pg 25.6-32.2 cwom=117) MEAN CORPUSCULAR HEMOGLOBIN CONC (BEAKER) (test 31.8 GM/DL 32.2-35.5 piwz=077) RED CELL DISTRIBUTION WIDTH (BEAKER) (test 14.4 % 11.7-14.4 ihvh=981) PLATELET COUNT (BEAKER) (test mboo=317) 132 K/CU MM 150-450 MEAN PLATELET VOLUME (BEAKER) (test wgpi=907) 9.3 fL 9.4-12.3 NUCLEATED RED BLOOD CELLS (BEAKER) (test 0 /100 WBC 0-0 udif=760) NEUTROPHILS RELATIVE PERCENT (BEAKER) (test 83 % ookb=018) LYMPHOCYTES RELATIVE PERCENT (BEAKER) (test 10 % btvu=603) MONOCYTES RELATIVE PERCENT (BEAKER) (test 7 % bmrv=913) EOSINOPHILS RELATIVE PERCENT (BEAKER) (test 0 % csqy=362) BASOPHILS RELATIVE PERCENT (BEAKER) (test 0 % ywwo=641) NEUTROPHILS ABSOLUTE COUNT (BEAKER) (test 6.55 K/ L 1.56-6.13 mjjm=919) LYMPHOCYTES ABSOLUTE COUNT (BEAKER) (test 0.77 K/ L 1.18-3.74 vchw=781) MONOCYTES ABSOLUTE COUNT (BEAKER) (test 0.55 K/ L 0.24-0.36 hohi=576) EOSINOPHILS ABSOLUTE COUNT (BEAKER) (test 0.00 K/ L 0.04-0.36 ewqy=750) BASOPHILS ABSOLUTE COUNT (BEAKER) (test 0.02 K/ L 0.01-0.08 qaov=143) IMMATURE GRANULOCYTES-RELATIVE PERCENT (BEAKER) 0 % 0-1 (test rywb=1703) POCT-GLUCOSE [id number] 19:01:00 Test Item Value Reference Range Comments POC-GLUCOSE METER (BEAKER) 301 mg/dL 70-[address] [facility] [address] [place] [address] (test rdzv=3354) [facility] [address] [address], ABDOMEN, WITHOUT [id number] 12:33:00FINAL REPORT ABDOMINAL CT DATED 02/19/2019 CLINICAL [...] [place] Verified Date/Time: 02/19/2019 12:33:54 Reading Location: [address] Body Reading Room Electronicallysigned by: GIOVANNI HAAS M.D. on 02/19/2019 12:33 PMBODY FLUID CULTURE + GRAM [id number] 12:08:00 Test Item Value Reference Range Comments CULTURE (BEAKER) (test cmjy=4448) No growth GRAM STAIN RESULT (BEAKER) (test <1+ WBCs zqcc=6737) GRAM STAIN RESULT (BEAKER) (test No organisms seen lmlg=92321) POCT-GLUCOSE [id number] 09:38:00 Test Item Value Reference Range Comments POC-GLUCOSE METER (BEAKER) 274 mg/dL 70-110 TESTED AT [address] (test jstk=3441) [facility] [address] CALCIUM, [id number] 06:56:00 Test Item Value Reference Range Comments CALCIUM IONIZED (BEAKER) (test fmwq=217) 1.05 mmol/L 1.12-1.27 PH, BLOOD (BEAKER) (test wlnk=0955) 7.40 [id number] 06:22:00 Test Item Value Reference Range Comments PHOSPHORUS (BEAKER) (test uqwy=391) 2.3 mg/dL 2.3-4.7 [id number] 06:22:00 Test Item Value Reference Range Comments MAGNESIUM (BEAKER) (test epwp=670) 1.7 mg/dL 1.6-2.6 HEPATIC FUNCTION [id number] 06:22:00 Test Item Value Reference Range Comments TOTAL PROTEIN (BEAKER) (test gspq=186) 5.6 gm/dL 6.0-8.3 ALBUMIN (BEAKER) (test hcwk=9965) 3.4 g/dL 3.5-5.0 BILIRUBIN TOTAL (BEAKER) (test nknz=589) 0.9 mg/dL 0.2-1.2 BILIRUBIN DIRECT (BEAKER) (test ubuu=074) 0.4 mg/dL 0.1-0.5 ALKALINE PHOSPHATASE (BEAKER) (test cxlk=058) 121 U/L 40-150 AST (SGOT) (BEAKER) (test eyyc=777) 28 U/L 5-34 ALT (SGPT) (BEAKER) (test peac=381) 12 U/L 6-55 COMPREHENSIVE METABOLIC [id number] 06:22:00 Test Item Value Reference Range Comments TOTAL PROTEIN (BEAKER) 5.6 gm/dL 6.0-8.3 (test itrd=388) ALBUMIN (BEAKER) (test 3.4 g/dL 3.5-5.0 vcdw=6468) ALKALINE PHOSPHATASE 121 U/L 40-150 (BEAKER) (test vwcy=710) BILIRUBIN TOTAL (BEAKER) 0.9 mg/dL 0.2-1.2 (test lynz=493) SODIUM (BEAKER) (test 135 meq/L 136-145 bzsf=927) POTASSIUM (BEAKER) (test 4.5 meq/L 3.5-5.1 iupj=089) CHLORIDE (BEAKER) (test 105 meq/L 98-107 irlf=157) CO2 (BEAKER) (test 22 meq/L 22-29 ucri=293) BLOOD UREA NITROGEN 29 mg/dL 7-21 (BEAKER) (test qfjx=371) CREATININE (BEAKER) (test 1.38 mg/dL 0.57-1.25 lslg=214) GLUCOSE RANDOM (BEAKER) 313 mg/dL 70-105 (test eyai=410) CALCIUM (BEAKER) (test 8.7 mg/dL 8.4-10.2 cghh=500) AST (SGOT) (BEAKER) (test 28 U/L 5-34 vjnp=940) ALT (SGPT) (BEAKER) (test 12 U/L 6-55 vrsb=203) EGFR (BEAKER) (test 39 mL/min/1.73 sq m ESTIMATED GFR IS NOT nbwp=6416) ACCURATE CREATININE CLEARANCE IN PREDICTING GLOMERULAR FILTRATION RATE. ESTIMATED GFR IS NOT APPLICABLE FOR DIALYSIS PATIENTS. PROTHROMBIN [id number] 06:15:00 Test Item Value Reference Range Comments PROTIME (BEAKER) (test uodj=601) 14.0 seconds 11.7-14.7 INR (BEAKER) (test ysiw=224) 1.1 <=5.9 RECOMMENDED COUMADIN/WARFARIN INR THERAPY RANGESSTANDARD DOSE: 2.0 - 3.0 Includes: PROPHYLAXIS forvenous thrombosis, systemic embolization; TREATMENT for venous thrombosis and/or pulmonary embolus.HIGH RISK: Target INR is 2.5-3.5 for patients with mechanical heart valves.CBC W/PLT COUNT & AUTO [id number] 05:57:00 Test Item Value Reference Range Comments WHITE BLOOD CELL COUNT (BEAKER) (test ubnt=197) 6.9 K/ L 3.5-10.5 RED BLOOD CELL COUNT (BEAKER) (test kptv=206) 3.83 M/ L 3.93-5.22 HEMOGLOBIN (BEAKER) (test hxyq=676) 10.5 GM/DL 11.2-15.7 HEMATOCRIT (BEAKER) (test rtri=457) 33.1 % 34.1-44.9 MEAN CORPUSCULAR VOLUME (BEAKER) (test atdg=686) 86.4 fL 79.4-94.8 MEAN CORPUSCULAR HEMOGLOBIN (BEAKER) (test 27.4 pg 25.6-32.2 witj=832) MEAN CORPUSCULAR HEMOGLOBIN CONC (BEAKER) (test 31.7 GM/DL 32.2-35.5 yebl=902) RED CELL DISTRIBUTION WIDTH (BEAKER) (test 14.4 % 11.7-14.4 lkqg=808) PLATELET COUNT (BEAKER) (test nwmv=803) 175 K/CU MM 150-450 MEAN PLATELET VOLUME (BEAKER) (test crvh=129) 9.9 fL 9.4-12.3 NUCLEATED RED BLOOD CELLS (BEAKER) (test 0 /100 WBC 0-0 vsyg=309) NEUTROPHILS RELATIVE PERCENT (BEAKER) (test 73 % biwv=999) LYMPHOCYTES RELATIVE PERCENT (BEAKER) (test 16 % drhx=188) MONOCYTES RELATIVE PERCENT (BEAKER) (test 7 % iavl=619) EOSINOPHILS RELATIVE PERCENT (BEAKER) (test 4 % hxyg=516) BASOPHILS RELATIVE PERCENT (BEAKER) (test 1 % pxeg=165) NEUTROPHILS ABSOLUTE COUNT (BEAKER) (test 4.99 K/ L 1.56-6.13 mggl=192) LYMPHOCYTES ABSOLUTE COUNT (BEAKER) (test 1.09 K/ L 1.18-3.74 gcev=446) MONOCYTES ABSOLUTE COUNT (BEAKER) (test 0.50 K/ L 0.24-0.36 fvwh=125) EOSINOPHILS ABSOLUTE COUNT (BEAKER) (test 0.25 K/ L 0.04-0.36 nubs=936) BASOPHILS ABSOLUTE COUNT (BEAKER) (test 0.04 K/ L 0.01-0.08 kepc=777) IMMATURE GRANULOCYTES-RELATIVE PERCENT (BEAKER) 0 % 0-1 (test pwte=6628) POCT-GLUCOSE [id number] 23:05:00 Test Item Value Reference Range Comments POC-GLUCOSE METER (BEAKER) 412 mg/dL 70-110 Will Repeat Test/TESTED AT (test dmdy=1026) [address] [address] POCT-GLUCOSE [id number] 22:12:00 Test Item Value Reference Range Comments POC-GLUCOSE METER (BEAKER) 371 mg/dL 70-110 TESTED AT [address] (test gbxi=4902) [facility] [address] BODY FLUID CELL COUNT WITH [id number] 13:06:00 Test Item Value Reference Range Comments APPEARANCE FLUID (BEAKER) (test rvsb=641) Slightly Hazy Clear COLOR FLUID (BEAKER) (test waeo=138) Yellow Colorless, Straw RBC FLUID (BEAKER) (test gglc=349) 252 /cu mm <=1 ADJUSTED WBC FLUID (BEAKER) (test chmg=9087) 112 /cu mm <=5 LINING CELLS (BEAKER) (test madb=8022) 10 /cu mm <=1 NEUTROPHILS FLUID (BEAKER) (test uhbm=3668) 8 % LYMPHS FLUID (BEAKER) (test hiqt=715) 40 % MONO/MACROPHAGE FLUID (BEAKER) (test 43 % xlgs=550) EOSINOPHILS FLUID (BEAKER) (test sahr=420) 0 % BASO FLUID (BEAKER) (test aana=277) 0 % CONTAINER BODY FLUID (BEAKER) (test EDTA Tube bqmn=0104) U/S, [id number] 10:21:00Limit 8 LReason for exam:->ascites, limit 8 [...] skin and deep soft tissues. A 5 Indian one-step catheter was inserted and removed from the peritoneal space and approximately 8.0 liters of clear yellow fluid was aspirated from the abdomen. There were no immediate complications. Impression: Successful ultrasound guided paracentesis with aspiration of 8.0 liters of fluid. Signed: Akil Chung MDReport Verified Date/ Time: 02/18/2019 10:21:08 Reading Location: [address] Ultrasound Reading Room [id number] 07:08:00 Test Item Value Reference Range Comments MAGNESIUM (BEAKER) (test lfen=570) 1.7 mg/dL 1.6-2.6 HEPATIC FUNCTION [id number] 07:08:00 Test Item Value Reference Range Comments TOTAL PROTEIN (BEAKER) (test hvby=428) 5.4 gm/dL 6.0-8.3 ALBUMIN (BEAKER) (test qxwv=9410) 3.2 g/dL 3.5-5.0 BILIRUBIN TOTAL (BEAKER) (test sdom=793) 0.8 mg/dL 0.2-1.2 BILIRUBIN DIRECT (BEAKER) (test cfjd=911) 0.4 mg/dL 0.1-0.5 ALKALINE PHOSPHATASE (BEAKER) (test qabf=196) 104 U/L 40-150 AST (SGOT) (BEAKER) (test jent=998) 20 U/L 5-34 ALT (SGPT) (BEAKER) (test dayh=570) 10 U/L 6-55 COMPREHENSIVE METABOLIC [id number] 07:08:00 Test Item Value Reference Range Comments TOTAL PROTEIN (BEAKER) 5.4 gm/dL 6.0-8.3 (test uqfc=450) ALBUMIN (BEAKER) (test 3.2 g/dL 3.5-5.0 fzoy=8198) ALKALINE PHOSPHATASE 104 U/L 40-150 (BEAKER) (test khpt=982) BILIRUBIN TOTAL (BEAKER) 0.8 mg/dL 0.2-1.2 (test suxt=611) SODIUM (BEAKER) (test 136 meq/L 136-145 eroj=448) POTASSIUM (BEAKER) (test 4.3 meq/L 3.5-5.1 auqq=198) CHLORIDE (BEAKER) (test 108 meq/L 98-107 hnjz=724) CO2 (BEAKER) (test 22 meq/L 22-29 avnu=913) BLOOD UREA NITROGEN 31 mg/dL 7-21 (BEAKER) (test iybr=898) CREATININE (BEAKER) (test 1.26 mg/dL 0.57-1.25 gwww=473) GLUCOSE RANDOM (BEAKER) 262 mg/dL 70-105 (test fgpt=754) CALCIUM (BEAKER) (test 8.5 mg/dL 8.4-10.2 cbfh=969) AST (SGOT) (BEAKER) (test 20 U/L 5-34 susj=931) ALT (SGPT) (BEAKER) (test 10 U/L 6-55 geua=154) EGFR (BEAKER) (test 43 mL/min/1.73 sq m ESTIMATED GFR IS NOT lhvt=2885) ACCURATE CREATININE CLEARANCE IN PREDICTING GLOMERULAR FILTRATION RATE. ESTIMATED GFR IS NOT APPLICABLE FOR DIALYSIS PATIENTS. [id number] 07:07:00 Test Item Value Reference Range Comments PHOSPHORUS (BEAKER) (test foco=444) 2.7 mg/dL 2.3-4.7 POCT-GLUCOSE [id number] 06:31:00 Test Item Value Reference Range Comments POC-GLUCOSE METER (BEAKER) 249 mg/dL 70-[address] [facility] [address] [facility] (test qkzb=3967) [facility] [address] URINALYSIS W/ [id number] 06:17:00 Test Item Value Reference Range Comments COLOR (BEAKER) (test wduc=619) Yellow CLARITY (BEAKER) (test qvsn=390) Clear SPECIFIC GRAVITY UA (BEAKER) (test jomy=734) 1.013 1.001-1.035 PH UA (BEAKER) (test nqbm=354) 5.0 5.0-8.0 PROTEIN UA (BEAKER) (test epyd=461) Negative Negative GLUCOSE UA (BEAKER) (test ofqy=500) 100 mg/dL Negative KETONES UA (BEAKER) (test dphx=788) Negative Negative BILIRUBIN UA (BEAKER) (test hzhz=109) Negative Negative BLOOD UA (BEAKER) (test oxgp=958) Negative Negative NITRITE UA (BEAKER) (test xxil=687) Negative Negative LEUKOCYTE ESTERASE UA (BEAKER) (test pwfc=271) Large Negative UROBILINOGEN UA (BEAKER) (test ilkp=918) 0.2 mg/dL 0.2-1.0 RBC UA (BEAKER) (test rsff=477) 2 /HPF WBC UA (BEAKER) (test dcqb=162) 24 /HPF SQUAMOUS EPITHELIAL (BEAKER) (test thai=701) 14 /HPF HYALINE CASTS (BEAKER) (test sgcf=521) 3 /LPF SOURCE(BEAKER) (test wlxd=0797) Urine, Voided [id number] 05:53:00 Test Item Value Reference Range Comments PARTIAL THROMBOPLASTIN TIME (BEAKER) (test 20.1 seconds 22.5-36.0 jqjg=679) CALCIUM, [id number] 05:50:00 Test Item Value Reference Range Comments CALCIUM IONIZED (BEAKER) (test xbho=144) 1.00 mmol/L 1.12-1.27 PH, BLOOD (BEAKER) (test iusv=6663) 7.43 PROTHROMBIN [id number] 04:54:00 Test Item Value Reference Range Comments PROTIME (BEAKER) (test hpik=116) 13.8 seconds 11.7-14.7 INR (BEAKER) (test tzkl=350) 1.0 <=5.9 RECOMMENDED COUMADIN/WARFARIN INR THERAPY RANGESSTANDARD DOSE: 2.0 - 3.0 Includes: PROPHYLAXIS forvenous thrombosis, systemic embolization; TREATMENT for venous thrombosis and/or pulmonary embolus.HIGH RISK: Target INR is 2.5-3.5 for patients with mechanical heart valves.CREATININE, RANDOM [id number] 04: 48:00 Test Item Value Reference Range Comments CREATININE URINE (BEAKER) (test psyz=637) 115.9 mg/dL Reference Range: No NormalsPROTEIN, RANDOM [id number] 04:48:00 Test Item Value Reference Range Comments PROTEIN, URINE (BEAKER) (test zxng=6377) 12 mg/dL 0-14 CBC W/PLT COUNT & AUTO [id number] 04:30:00 Test Item Value Reference Range Comments WHITE BLOOD CELL COUNT (BEAKER) (test iidj=475) 5.2 K/ L 3.5-10.5 RED BLOOD CELL COUNT (BEAKER) (test ydlo=668) 3.58 M/ L 3.93-5.22 HEMOGLOBIN (BEAKER) (test hnff=186) 9.8 GM/DL 11.2-15.7 HEMATOCRIT (BEAKER) (test lxbz=335) 31.6 % 34.1-44.9 MEAN CORPUSCULAR VOLUME (BEAKER) (test hzja=882) 88.3 fL 79.4-94.8 MEAN CORPUSCULAR HEMOGLOBIN (BEAKER) (test 27.4 pg 25.6-32.2 cvow=775) MEAN CORPUSCULAR HEMOGLOBIN CONC (BEAKER) (test 31.0 GM/DL 32.2-35.5 yrlh=300) RED CELL DISTRIBUTION WIDTH (BEAKER) (test 14.4 % 11.7-14.4 ybkb=365) PLATELET COUNT (BEAKER) (test kkqn=473) 173 K/CU MM 150-450 MEAN PLATELET VOLUME (BEAKER) (test cyqy=092) 9.6 fL 9.4-12.3 NUCLEATED RED BLOOD CELLS (BEAKER) (test 0 /100 WBC 0-0 zdxj=078) NEUTROPHILS RELATIVE PERCENT (BEAKER) (test 67 % gdxe=286) LYMPHOCYTES RELATIVE PERCENT (BEAKER) (test 19 % gqqh=678) MONOCYTES RELATIVE PERCENT (BEAKER) (test 8 % tyou=039) EOSINOPHILS RELATIVE PERCENT (BEAKER) (test 5 % urzy=964) BASOPHILS RELATIVE PERCENT (BEAKER) (test 1 % jjgc=258) NEUTROPHILS ABSOLUTE COUNT (BEAKER) (test 3.43 K/ L 1.56-6.13 knsd=511) LYMPHOCYTES ABSOLUTE COUNT (BEAKER) (test 0.98 K/ L 1.18-3.74 mxmh=145) MONOCYTES ABSOLUTE COUNT (BEAKER) (test 0.42 K/ L 0.24-0.36 otug=906) EOSINOPHILS ABSOLUTE COUNT (BEAKER) (test 0.26 K/ L 0.04-0.36 qoxv=060) BASOPHILS ABSOLUTE COUNT (BEAKER) (test 0.04 K/ L 0.01-0.08 mwbc=647) IMMATURE GRANULOCYTES-RELATIVE PERCENT (BEAKER) 0 % 0-1 (test ladd=6808) U/S, ABDOMINAL, WITH [id number] 03:48:00Reason for exam:->TIPS workup , assess for [...] MDReport Verified Date/Time: 02/18/2019 03:48:21 Reading Location: [address] Neuro Reading Room Electronically signed by: Se SCHNEIDER 2018 03:48 AMPOCT-GLUCOSE [id number] 00:28:00 Test Item Value Reference Range Comments POC-GLUCOSE METER (BEAKER) 330 mg/dL 70-110 Will Repeat Test/TESTED AT (test thme=3402) [facility] [address] [facility] [address] BODY FLUID CELL COUNT WITH [id number] 18:02:00 Test Item Value Reference Range Comments APPEARANCE FLUID (BEAKER) (test cuci=097) Clear Clear COLOR FLUID (BEAKER) (test jycm=341) Yellow Colorless, Straw RBC FLUID (BEAKER) (test aogz=500) 20 /cu mm <=1 ADJUSTED WBC FLUID (BEAKER) (test sanz=6249) 50 /cu mm <=5 LINING CELLS (BEAKER) (test rnqm=3647) 0 /cu mm <=1 NEUTROPHILS FLUID (BEAKER) (test nvsh=9419) 1 % LYMPHS FLUID (BEAKER) (test uxzv=632) 38 % MONO/MACROPHAGE FLUID (BEAKER) (test qiyf=263) 61 % EOSINOPHILS FLUID (BEAKER) (test oeiw=763) 0 % BASO FLUID (BEAKER) (test ubvp=612) 0 % CONTAINER BODY FLUID (BEAKER) (test xrhc=1755) EDTA Tube U/S, [id number] 16:30:00limit volume to 8 LReason for exam:-> [...] MDReport Verified Date/Time: 02/17 16:30:42 Reading Location: [address] Ultrasound Reading Room POCT-GLUCOSE [id number] 09:48:00 Test Item Value Reference Range Comments POC-GLUCOSE METER (BEAKER) 198 mg/dL 70-110 TESTED AT [address] (test utif=2232) [facility] [address] BASIC METABOLIC [id number] 06:30:00 Test Item Value Reference Range Comments SODIUM (BEAKER) (test 137 meq/L 136-145 ilze=849) POTASSIUM (BEAKER) (test 4.5 meq/L 3.5-5.1 cnbb=271) CHLORIDE (BEAKER) (test 107 meq/L 98-107 bqah=178) CO2 (BEAKER) (test 24 meq/L 22-29 ntjp=259) BLOOD UREA NITROGEN 41 mg/dL 7-21 (BEAKER) (test jxdu=379) CREATININE (BEAKER) (test 1.48 mg/dL 0.57-1.25 hffu=434) GLUCOSE RANDOM (BEAKER) 200 mg/dL 70-105 (test eixy=187) CALCIUM (BEAKER) (test 8.9 mg/dL 8.4-10.2 nixw=148) EGFR (BEAKER) (test 36 mL/min/1.73 sq m ESTIMATED GFR IS NOT gptw=6636) ACCURATE CREATININE CLEARANCE IN PREDICTING GLOMERULAR FILTRATION RATE. ESTIMATED GFR IS NOT APPLICABLE FOR DIALYSIS PATIENTS. POCT-GLUCOSE [id number] 17:31:00 Test Item Value Reference Range Comments POC-GLUCOSE METER (BEAKER) 165 mg/dL 70-[address] [facility] [address] [facility] (test pfnb=4942) [facility] [address] U/S, [id number] 16:00:00Reason for exam:->ascites SOBFINAL REPORT PROCEDURE: Ultrasound-guided paracentesis. INDICATION: Ascites. DESCRIPTION: This paracentesis was performed by Lesley Parnell under the direct supervision of Thomas Hendrix. After obtaining informed written consent, ultrasound scan of the abdomen identified ascites in the right lower quadrant. The overlying skin was prepped and draped in the usual, sterile fashion andlocal 2% lidocaine anesthesia was administered. A 5 Indian catheter was advanced into the peritonealcavity and 6000 mL of clear yellow fluid was removed. The catheter was removed without immediate complication. Samples were sent for analysis. IMPRESSION: Uncomplicated ultrasound-guided paracentesis with 6000 mL fluid removed. Signed: Thomas Hendrix [facility] Verified Date/Time: 16:00:46 Reading Location: [address] Ultrasound Reading Room BODY FLUID CELL COUNT WITH [id number] 15:52:00 Test Item Value Reference Range Comments APPEARANCE FLUID (BEAKER) (test imya=218) Clear Clear COLOR FLUID (BEAKER) (test nnge=282) Yellow Colorless, Straw RBC FLUID (BEAKER) (test bxsu=747) 10 /cu mm <=1 ADJUSTED WBC FLUID (BEAKER) (test spzn=0483) 80 /cu mm <=5 LINING CELLS (BEAKER) (test zcuq=7890) 0 /cu mm <=1 NEUTROPHILS FLUID (BEAKER) (test kgkm=2994) 5 % LYMPHS FLUID (BEAKER) (test jsep=855) 35 % MONO/MACROPHAGE FLUID (BEAKER) (test qckp=383) 59 % EOSINOPHILS FLUID (BEAKER) (test oriu=669) 1 % BASO FLUID (BEAKER) (test khuo=427) 0 % CONTAINER BODY FLUID (BEAKER) (test qeoe=0308) EDTA Tube BASIC METABOLIC [id number] 07:28:00 Test Item Value Reference Range Comments SODIUM (BEAKER) (test 134 meq/L 136-145 sbky=267) POTASSIUM (BEAKER) (test 5.0 meq/L 3.5-5.1 czta=691) CHLORIDE (BEAKER) (test 107 meq/L 98-107 ojli=362) CO2 (BEAKER) (test 22 meq/L 22-29 iesh=898) BLOOD UREA NITROGEN 46 mg/dL 7-21 (BEAKER) (test jjpt=747) CREATININE (BEAKER) (test 1.61 mg/dL 0.57-1.25 yuaw=909) GLUCOSE RANDOM (BEAKER) 220 mg/dL 70-105 (test dxrr=192) CALCIUM (BEAKER) (test 9.0 mg/dL 8.4-10.2 opeg=906) EGFR (BEAKER) (test 33 mL/min/1.73 sq m ESTIMATED GFR IS NOT tkwf=3233) ACCURATE CREATININE CLEARANCE IN PREDICTING GLOMERULAR FILTRATION RATE. ESTIMATED GFR IS NOT APPLICABLE FOR DIALYSIS PATIENTS. HEPATIC FUNCTION [id number] 07:28:00 Test Item Value Reference Range Comments TOTAL PROTEIN (BEAKER) (test umds=874) 5.9 gm/dL 6.0-8.3 ALBUMIN (BEAKER) (test nler=5264) 3.0 g/dL 3.5-5.0 BILIRUBIN TOTAL (BEAKER) (test uwcw=143) 0.6 mg/dL 0.2-1.2 BILIRUBIN DIRECT (BEAKER) (test lgkl=320) 0.3 mg/dL 0.1-0.5 ALKALINE PHOSPHATASE (BEAKER) (test bzbm=816) 154 U/L 40-150 AST (SGOT) (BEAKER) (test rprb=783) 22 U/L 5-34 ALT (SGPT) (BEAKER) (test bakv=189) 12 U/L 6-55 [id number] 07:27:00 Test Item Value Reference Range Comments MAGNESIUM (BEAKER) (test kmif=433) 2.2 mg/dL 1.6-2.6 CBC W/PLT COUNT & AUTO [id number] 07:06:00 Test Item Value Reference Range Comments WHITE BLOOD CELL COUNT (BEAKER) (test yeuf=928) 6.2 K/ L 3.5-10.5 RED BLOOD CELL COUNT (BEAKER) (test uzpf=172) 3.62 M/ L 3.93-5.22 HEMOGLOBIN (BEAKER) (test kzhw=075) 9.8 GM/DL 11.2-15.7 HEMATOCRIT (BEAKER) (test xzfu=334) 31.4 % 34.1-44.9 MEAN CORPUSCULAR VOLUME (BEAKER) (test ifoz=898) 86.7 fL 79.4-94.8 MEAN CORPUSCULAR HEMOGLOBIN (BEAKER) (test 27.1 pg 25.6-32.2 exah=514) MEAN CORPUSCULAR HEMOGLOBIN CONC (BEAKER) (test 31.2 GM/DL 32.2-35.5 wpnv=146) RED CELL DISTRIBUTION WIDTH (BEAKER) (test 14.5 % 11.7-14.4 rejw=510) PLATELET COUNT (BEAKER) (test bddj=332) 198 K/CU MM 150-450 MEAN PLATELET VOLUME (BEAKER) (test wyzn=063) 9.8 fL 9.4-12.3 NUCLEATED RED BLOOD CELLS (BEAKER) (test 0 /100 WBC 0-0 slvx=731) NEUTROPHILS RELATIVE PERCENT (BEAKER) (test 64 % bmdi=584) LYMPHOCYTES RELATIVE PERCENT (BEAKER) (test 22 % ydpv=297) MONOCYTES RELATIVE PERCENT (BEAKER) (test 9 % fqme=308) EOSINOPHILS RELATIVE PERCENT (BEAKER) (test 5 % ojus=029) BASOPHILS RELATIVE PERCENT (BEAKER) (test 1 % ktcv=119) NEUTROPHILS ABSOLUTE COUNT (BEAKER) (test 3.93 K/ L 1.56-6.13 ewgv=230) LYMPHOCYTES ABSOLUTE COUNT (BEAKER) (test 1.35 K/ L 1.18-3.74 jgtf=565) MONOCYTES ABSOLUTE COUNT (BEAKER) (test 0.53 K/ L 0.24-0.36 fqqr=107) EOSINOPHILS ABSOLUTE COUNT (BEAKER) (test 0.28 K/ L 0.04-0.36 imgt=046) BASOPHILS ABSOLUTE COUNT (BEAKER) (test 0.05 K/ L 0.01-0.08 yfos=182) IMMATURE GRANULOCYTES-RELATIVE PERCENT (BEAKER) 1 % 0-1 (test wisg=7243) [id number] 06:49:00 Test Item Value Reference Range Comments PROTIME (BEAKER) (test sbns=489) 13.4 seconds 11.7-14.7 INR (BEAKER) (test hewo=307) 1.0 <=5.9 PARTIAL THROMBOPLASTIN TIME (BEAKER) (test 30.9 seconds 22.5-36.0 dqul=938) RECOMMENDED COUMADIN/WARFARIN INR THERAPY RANGESSTANDARD DOSE: 2.0 - 3.0 Includes: PROPHYLAXIS forvenous thrombosis, systemic embolization; TREATMENT for venous thrombosis and/or pulmonary embolus.HIGH RISK: Target INR is 2.5-3.5 for patients with mechanical heart valves.URINALYSIS W/ REFLEX URINE [id number] 05:32:00 Test Item Value Reference Range Comments COLOR (BEAKER) (test skmo=487) Yellow CLARITY (BEAKER) (test nyti=777) Hazy SPECIFIC GRAVITY UA (BEAKER) (test hvpg=725) 1.021 1.001-1.035 PH UA (BEAKER) (test qdee=974) 5.5 5.0-8.0 PROTEIN UA (BEAKER) (test pgzd=434) 30 mg/dL Negative GLUCOSE UA (BEAKER) (test fyqn=929) Negative Negative KETONES UA (BEAKER) (test gvxh=601) Negative Negative BILIRUBIN UA (BEAKER) (test liyo=997) Negative Negative BLOOD UA (BEAKER) (test gkjf=327) Negative Negative NITRITE UA (BEAKER) (test oklw=721) Negative Negative LEUKOCYTE ESTERASE UA (BEAKER) (test reui=078) Large Negative UROBILINOGEN UA (BEAKER) (test ebal=878) 2.0 mg/dL 0.2-1.0 RBC UA (BEAKER) (test xfsa=388) 7 /HPF WBC UA (BEAKER) (test soax=135) 7 /HPF MUCUS (BEAKER) (test jgjq=5384) Rare SQUAMOUS EPITHELIAL (BEAKER) (test lubi=290) 6 /HPF HYALINE CASTS (BEAKER) (test dfqt=320) 40 /LPF SOURCE(BEAKER) (test zckb=2021) POCT-GLUCOSE [id number] 05:00:00 Test Item Value Reference Range Comments POC-GLUCOSE METER (BEAKER) 227 mg/dL 70-[address] [facility] [address] [facility] (test sech=5511) [facility] [address] ALPHA FETOPROTEIN (AFP), TUMOR [id number] 15:55:00 Test Item Value Reference Range Comments ALPHA-FETOPROTEIN (BEAKER) (test qpqu=4379) 3.4 ng/mL <10.0 BASIC METABOLIC [id number] 15:40:00 Test Item Value Reference Range Comments SODIUM (BEAKER) (test 133 meq/L 136-145 msld=977) POTASSIUM (BEAKER) (test 4.8 meq/L 3.5-5.1 bsog=196) CHLORIDE (BEAKER) (test 101 meq/L 98-107 vdkh=768) CO2 (BEAKER) (test 23 meq/L 22-29 tnbz=773) BLOOD UREA NITROGEN 37 mg/dL 7-21 (BEAKER) (test fzsk=623) CREATININE (BEAKER) (test 2.17 mg/dL 0.57-1.25 sgkx=384) GLUCOSE RANDOM (BEAKER) 191 mg/dL 70-105 (test cqlt=164) CALCIUM (BEAKER) (test 9.2 mg/dL 8.4-10.2 gfrd=834) EGFR (BEAKER) (test 23 mL/min/1.73 sq m ESTIMATED GFR IS NOT iuxv=6464) ACCURATE CREATININE CLEARANCE IN PREDICTING GLOMERULAR FILTRATION RATE. ESTIMATED GFR IS NOT APPLICABLE FOR DIALYSIS PATIENTS. HEPATIC FUNCTION [id number] 15:38:00 Test Item Value Reference Range Comments TOTAL PROTEIN (BEAKER) (test ockk=298) 6.9 gm/dL 6.0-8.3 ALBUMIN (BEAKER) (test affa=5833) 3.7 g/dL 3.5-5.0 BILIRUBIN TOTAL (BEAKER) (test qfeq=290) 0.8 mg/dL 0.2-1.2 BILIRUBIN DIRECT (BEAKER) (test tusj=523) 0.3 mg/dL 0.1-0.5 ALKALINE PHOSPHATASE (BEAKER) (test hwtb=637) 95 U/L 40-150 AST (SGOT) (BEAKER) (test haou=508) 24 U/L 5-34 ALT (SGPT) (BEAKER) (test okak=262) 14 U/L 6-55 PROTHROMBIN [id number] 15:29:00 Test Item Value Reference Range Comments PROTIME (BEAKER) (test hjel=515) 12.8 seconds 11.7-14.7 INR (BEAKER) (test cqwc=349) 1.0 <=5.9 RECOMMENDED COUMADIN/WARFARIN INR THERAPY RANGESSTANDARD DOSE: 2.0 - 3.0 Includes: PROPHYLAXIS forvenous thrombosis, systemic embolization; TREATMENT for venous thrombosis and/or pulmonary embolus.HIGH RISK: Target INR is 2.5-3.5 for patients with mechanical heart valves.CBC W/PLT COUNT & AUTO [id number] 15:17:00 Test Item Value Reference Range Comments WHITE BLOOD CELL COUNT (BEAKER) (test cgxw=569) 7.8 K/ L 3.5-10.5 RED BLOOD CELL COUNT (BEAKER) (test ypfc=524) 4.49 M/ L 3.93-5.22 HEMOGLOBIN (BEAKER) (test mawb=165) 12.4 GM/DL 11.2-15.7 HEMATOCRIT (BEAKER) (test tkvq=701) 39.1 % 34.1-44.9 MEAN CORPUSCULAR VOLUME (BEAKER) (test yjdt=571) 87.1 fL 79.4-94.8 MEAN CORPUSCULAR HEMOGLOBIN (BEAKER) (test 27.6 pg 25.6-32.2 chtn=856) MEAN CORPUSCULAR HEMOGLOBIN CONC (BEAKER) (test 31.7 GM/DL 32.2-35.5 ufow=513) RED CELL DISTRIBUTION WIDTH (BEAKER) (test 14.0 % 11.7-14.4 jfrv=946) PLATELET COUNT (BEAKER) (test yhnl=561) 196 K/CU MM 150-450 MEAN PLATELET VOLUME (BEAKER) (test aqcf=410) 9.9 fL 9.4-12.3 NUCLEATED RED BLOOD CELLS (BEAKER) (test 0 /100 WBC 0-0 fmgl=331) NEUTROPHILS RELATIVE PERCENT (BEAKER) (test 72 % ghpr=562) LYMPHOCYTES RELATIVE PERCENT (BEAKER) (test 18 % yrvt=336) MONOCYTES RELATIVE PERCENT (BEAKER) (test 6 % luue=984) EOSINOPHILS RELATIVE PERCENT (BEAKER) (test 4 % bdag=642) BASOPHILS RELATIVE PERCENT (BEAKER) (test 1 % aaiq=173) NEUTROPHILS ABSOLUTE COUNT (BEAKER) (test 5.62 K/ L 1.56-6.13 nvbq=916) LYMPHOCYTES ABSOLUTE COUNT (BEAKER) (test 1.37 K/ L 1.18-3.74 sgkl=687) MONOCYTES ABSOLUTE COUNT (BEAKER) (test 0.43 K/ L 0.24-0.36 zqev=122) EOSINOPHILS ABSOLUTE COUNT (BEAKER) (test 0.28 K/ L 0.04-0.36 dztm=473) BASOPHILS ABSOLUTE COUNT (BEAKER) (test 0.07 K/ L 0.01-0.08 naao=230) IMMATURE GRANULOCYTES-RELATIVE PERCENT (BEAKER) 0 % 0-1 (test eqeo=7585) ANTI-MITOCHONDRIAL AB, REFLEX TO [id number] 08:36:00 Test Item Value Reference Range Comments SCAN RESULT (test lurf=[id number]) OSMOLALITY, [id number] 10:30:00 Test Item Value Reference Range Comments OSMOLALITY, SERUM (BEAKER) (test goxi=510) 301 mOsm/kg 275-295 POCT-GLUCOSE [id number] 08:26:00 Test Item Value Reference Range Comments POC-GLUCOSE METER (BEAKER) 243 mg/dL 70-110 TESTED AT [address] (test zhek=0250) [facility] [address] COMPREHENSIVE METABOLIC [id number] 08:05:00 Test Item Value Reference Range Comments TOTAL PROTEIN (BEAKER) 5.5 gm/dL 6.0-8.3 (test sxek=124) ALBUMIN (BEAKER) (test 3.2 g/dL 3.5-5.0 djxd=7551) ALKALINE PHOSPHATASE 75 U/L 40-150 (BEAKER) (test pkcr=521) BILIRUBIN TOTAL (BEAKER) 0.9 mg/dL 0.2-1.2 (test oyim=728) SODIUM (BEAKER) (test 132 meq/L 136-145 socr=456) POTASSIUM (BEAKER) (test 4.3 meq/L 3.5-5.1 xfnx=327) CHLORIDE (BEAKER) (test 101 meq/L 98-107 xnbs=631) CO2 (BEAKER) (test 25 meq/L 22-29 ekau=744) BLOOD UREA NITROGEN 45 mg/dL 7-21 (BEAKER) (test efta=903) CREATININE (BEAKER) (test 1.89 mg/dL 0.57-1.25 igyl=947) GLUCOSE RANDOM (BEAKER) 241 mg/dL 70-105 (test tumh=527) CALCIUM (BEAKER) (test 8.6 mg/dL 8.4-10.2 lqvw=514) AST (SGOT) (BEAKER) (test 19 U/L 5-34 yggo=570) ALT (SGPT) (BEAKER) (test 10 U/L 6-55 cyob=200) EGFR (BEAKER) (test 27 mL/min/1.73 sq m ESTIMATED GFR IS NOT nsaz=9365) ACCURATE CREATININE CLEARANCE IN PREDICTING GLOMERULAR FILTRATION RATE. ESTIMATED GFR IS NOT APPLICABLE FOR DIALYSIS PATIENTS. [id number] 08:02:00 Test Item Value Reference Range Comments PHOSPHORUS (BEAKER) (test zqiv=181) 3.6 mg/dL 2.3-4.7 [id number] 08:02:00 Test Item Value Reference Range Comments MAGNESIUM (BEAKER) (test fhgb=431) 2.0 mg/dL 1.6-2.6 CBC W/PLT COUNT & AUTO [id number] 05:40:00 Test Item Value Reference Range Comments WHITE BLOOD CELL COUNT (BEAKER) (test cqhz=120) 5.7 K/ L 3.5-10.5 RED BLOOD CELL COUNT (BEAKER) (test nrvt=823) 3.76 M/ L 3.93-5.22 HEMOGLOBIN (BEAKER) (test lolz=013) 10.6 GM/DL 11.2-15.7 HEMATOCRIT (BEAKER) (test cusa=500) 32.9 % 34.1-44.9 MEAN CORPUSCULAR VOLUME (BEAKER) (test qtek=066) 87.5 fL 79.4-94.8 MEAN CORPUSCULAR HEMOGLOBIN (BEAKER) (test 28.2 pg 25.6-32.2 tjzq=033) MEAN CORPUSCULAR HEMOGLOBIN CONC (BEAKER) (test 32.2 GM/DL 32.2-35.5 ylti=420) RED CELL DISTRIBUTION WIDTH (BEAKER) (test 14.2 % 11.7-14.4 kmml=739) PLATELET COUNT (BEAKER) (test rmcv=393) 142 K/CU MM 150-450 MEAN PLATELET VOLUME (BEAKER) (test vsrs=863) 9.8 fL 9.4-12.3 NUCLEATED RED BLOOD CELLS (BEAKER) (test 0 /100 WBC 0-0 fztu=950) NEUTROPHILS RELATIVE PERCENT (BEAKER) (test 70 % uhof=173) LYMPHOCYTES RELATIVE PERCENT (BEAKER) (test 19 % ohzg=500) MONOCYTES RELATIVE PERCENT (BEAKER) (test 7 % dnmd=934) EOSINOPHILS RELATIVE PERCENT (BEAKER) (test 3 % lwhh=146) BASOPHILS RELATIVE PERCENT (BEAKER) (test 1 % celp=282) NEUTROPHILS ABSOLUTE COUNT (BEAKER) (test 3.99 K/ L 1.56-6.13 xlis=668) LYMPHOCYTES ABSOLUTE COUNT (BEAKER) (test 1.05 K/ L 1.18-3.74 spmp=100) MONOCYTES ABSOLUTE COUNT (BEAKER) (test 0.40 K/ L 0.24-0.36 nusx=440) EOSINOPHILS ABSOLUTE COUNT (BEAKER) (test 0.16 K/ L 0.04-0.36 dgmx=310) BASOPHILS ABSOLUTE COUNT (BEAKER) (test 0.04 K/ L 0.01-0.08 lxht=644) IMMATURE GRANULOCYTES-RELATIVE PERCENT (BEAKER) 0 % 0-1 (test cktp=3818) CALCIUM, [id number] 05:17:00 Test Item Value Reference Range Comments CALCIUM IONIZED (BEAKER) (test ebbh=939) 1.06 mmol/L 1.12-1.27 PH, BLOOD (BEAKER) (test nuxx=1843) 7.41 U/S, RENAL, [id number] 03:59:00Reason for exam:->HEMALATHA/CKDShould this be performed at [...] Wilson Verified Date/Time: 11/24/2018 03:59:04 Reading Location: [address] Transitional Reading Room TROPONIN [id number] 23:19:00 Test Item Value Reference Range Comments TROPONIN I (BEAKER) (test mvfg=636) < ng/mL 0.00-0.03 Troponin I (TnI) levels [...] acidosis, acute neurological disease, and persistent tachyarrhythmia.POCT-GLUCOSE [id number] 21:12:00 Test Item Value Reference Range Comments POC-GLUCOSE METER (BEAKER) 277 mg/dL 70-110 TESTED AT [address] (test reph=5994) [facility] [address] PROTEIN, RANDOM [id number] 20:11:00 Test Item Value Reference Range Comments PROTEIN, URINE (BEAKER) (test vxjj=1028) 10 mg/dL 0-14 SODIUM, RANDOM [id number] 20:05:00 Test Item Value Reference Range Comments SODIUM URINE (BEAKER) (test ekcy=567) < meq/L Reference Range: No NormalsPOCT-GLUCOSE [id number] 17:28:00 Test Item Value Reference Range Comments POC-GLUCOSE METER (BEAKER) 291 mg/dL 70-110 TESTED AT [address] (test unze=9417) [facility] [address] POCT-GLUCOSE [id number] 14:02:00 Test Item Value Reference Range Comments POC-GLUCOSE METER (BEAKER) 148 mg/dL 70-[address] [facility] [address] [facility] (test qbzm=1198) [facility] [address] URINALYSIS W/ [id number] 13:32:00 Test Item Value Reference Range Comments COLOR (BEAKER) (test grkn=333) Yellow CLARITY (BEAKER) (test apwd=271) Clear SPECIFIC GRAVITY UA (BEAKER) (test 1.015 1.001-1.035 wfar=975) PH UA (BEAKER) (test yiob=131) 5.0 5.0-8.0 PROTEIN UA (BEAKER) (test fbzi=681) Negative Negative GLUCOSE UA (BEAKER) (test fakc=824) Negative Negative KETONES UA (BEAKER) (test izvd=765) Negative Negative BILIRUBIN UA (BEAKER) (test xrxr=135) Negative Negative BLOOD UA (BEAKER) (test wldd=083) Negative Negative NITRITE UA (BEAKER) (test grop=732) Negative Negative LEUKOCYTE ESTERASE UA (BEAKER) (test Negative Negative iqxp=498) UROBILINOGEN UA (BEAKER) (test gccp=136) 0.2 mg/dL 0.2-1.0 RBC UA (BEAKER) (test rzkm=041) < /HPF WBC UA (BEAKER) (test bewt=893) 2 /HPF BACTERIA (BEAKER) (test teaa=522) Occasional SQUAMOUS EPITHELIAL (BEAKER) (test 19 /HPF jclu=799) HYALINE CASTS (BEAKER) (test jnjf=894) 5 /LPF AMORPHOUS CRYSTALS (BEAKER) (test Occasional tveb=2777) SOURCE(BEAKER) (test pfqa=2009) Urine, Clean Catch U/S, ABDOMINAL, [id number] 13:29:00Abdomen limited area? Add comment if clarification [...] Valles Verified Date/Time: 11/23/2018 13:29:13 Reading Location: [address] Transitional Reading Room U/S, [id number] 13:01:00Reason for exam:->Therapeutic paracentesisFINAL REPORT Paracentesis dated 11/23/2018 Procedure: Ultrasound-guided paracentesis. Preprocedure diagnosis: Ascites Postprocedure diagnosis: Ascites Conscious sedation: None. Radiologist: Giovanni Haas M.D. Magneto Repairer: None Anesthesia: 1% Xylocaine mixed with sodium bicarbonate local anesthesia. Technique: After obtaining informed consent, ultrasound-guided paracentesis was performed under usual sterile technique. Using a 5 palauan drainage catheter , puncture was made in [...] 2018 01:01 PMCBC W/PLT COUNT & AUTO [id number] 08:55:00 Test Item Value Reference Range Comments WHITE BLOOD CELL COUNT (BEAKER) (test swcd=754) 5.7 K/ L 3.5-10.5 RED BLOOD CELL COUNT (BEAKER) (test qyeb=849) 3.72 M/ L 3.93-5.22 HEMOGLOBIN (BEAKER) (test bcgk=388) 10.5 GM/DL 11.2-15.7 HEMATOCRIT (BEAKER) (test gaew=788) 32.5 % 34.1-44.9 MEAN CORPUSCULAR VOLUME (BEAKER) (test epvr=652) 87.4 fL 79.4-94.8 MEAN CORPUSCULAR HEMOGLOBIN (BEAKER) (test 28.2 pg 25.6-32.2 rndz=916) MEAN CORPUSCULAR HEMOGLOBIN CONC (BEAKER) (test 32.3 GM/DL 32.2-35.5 tvie=401) RED CELL DISTRIBUTION WIDTH (BEAKER) (test 14.5 % 11.7-14.4 omuc=299) PLATELET COUNT (BEAKER) (test jwbi=596) 148 K/CU MM 150-450 MEAN PLATELET VOLUME (BEAKER) (test mfea=537) 9.4 fL 9.4-12.3 NUCLEATED RED BLOOD CELLS (BEAKER) (test 0 /100 WBC 0-0 elbz=628) NEUTROPHILS RELATIVE PERCENT (BEAKER) (test 63 % oyoo=589) LYMPHOCYTES RELATIVE PERCENT (BEAKER) (test 23 % amum=341) MONOCYTES RELATIVE PERCENT (BEAKER) (test 8 % jclv=942) EOSINOPHILS RELATIVE PERCENT (BEAKER) (test 5 % mpve=620) BASOPHILS RELATIVE PERCENT (BEAKER) (test 1 % uhvu=831) NEUTROPHILS ABSOLUTE COUNT (BEAKER) (test 3.61 K/ L 1.56-6.13 zbvf=649) LYMPHOCYTES ABSOLUTE COUNT (BEAKER) (test 1.29 K/ L 1.18-3.74 ezng=130) MONOCYTES ABSOLUTE COUNT (BEAKER) (test 0.47 K/ L 0.24-0.36 rvib=474) EOSINOPHILS ABSOLUTE COUNT (BEAKER) (test 0.28 K/ L 0.04-0.36 fezm=158) BASOPHILS ABSOLUTE COUNT (BEAKER) (test 0.05 K/ L 0.01-0.08 ymtw=963) IMMATURE GRANULOCYTES-RELATIVE PERCENT (BEAKER) 0 % 0-1 (test dsdc=2332) POCT-GLUCOSE [id number] 07:43:00 Test Item Value Reference Range Comments POC-GLUCOSE METER (BEAKER) 196 mg/dL 70-[address] [facility] [address] [facility] (test lfgg=0412) [facility] [address] [id number] 06:53:00 Test Item Value Reference Range Comments FERRITIN (BEAKER) (test khmh=228) 52 ng/mL 5-275 HEPATITIS B [id number] 06:21:00 Test Item Value Reference Range Comments HEPATITIS B CORE TOTAL ANTIBODY (BEAKER) (test Nonreactive Nonreactive vhon=658) HEPATITIS B SURFACE ANTIBODY (BEAKER) (test < mIU/mL <8.0 ozno=637) HEPATITIS B SURFACE ANTIGEN (2) (BEAKER) (test Nonreactive Nonreactive yzpx=5584) HEPATITIS C [id number] 06:20:00 Test Item Value Reference Range Comments HEPATITIS C ANTIBODY (BEAKER) (test tfrp=871) Nonreactive Nonreactive HEPATITIS A [id number] 06:20:00 Test Item Value Reference Range Comments HEPATITIS A IGM ANTIBODY (BEAKER) (test Nonreactive Nonreactive aqdv=299) HEPATITIS A IGG ANTIBODY (BEAKER) (test Nonreactive Nonreactive zblo=9826) ALPHA FETOPROTEIN (AFP), TUMOR [id number] 06:14:00 Test Item Value Reference Range Comments ALPHA-FETOPROTEIN (BEAKER) (test objl=6054) 2.1 ng/mL <10.0 COMPREHENSIVE METABOLIC [id number] 06:01:00 Test Item Value Reference Range Comments TOTAL PROTEIN (BEAKER) 5.9 gm/dL 6.0-8.3 (test kksj=941) ALBUMIN (BEAKER) (test 2.9 g/dL 3.5-5.0 gjme=2766) ALKALINE PHOSPHATASE 96 U/L 40-150 (BEAKER) (test sewr=157) BILIRUBIN TOTAL (BEAKER) 0.5 mg/dL 0.2-1.2 (test wfep=110) SODIUM (BEAKER) (test 132 meq/L 136-145 libw=551) POTASSIUM (BEAKER) (test 4.3 meq/L 3.5-5.1 wxhg=052) CHLORIDE (BEAKER) (test 100 meq/L 98-107 dtye=323) CO2 (BEAKER) (test 26 meq/L 22-29 dalh=446) BLOOD UREA NITROGEN 50 mg/dL 7-21 (BEAKER) (test qsjy=118) CREATININE (BEAKER) (test 2.27 mg/dL 0.57-1.25 scxe=407) GLUCOSE RANDOM (BEAKER) 219 mg/dL 70-105 (test hpfl=451) CALCIUM (BEAKER) (test 8.8 mg/dL 8.4-10.2 hwru=390) AST (SGOT) (BEAKER) (test 22 U/L 5-34 iayb=588) ALT (SGPT) (BEAKER) (test 15 U/L 6-55 wzfp=749) EGFR (BEAKER) (test 22 mL/min/1.73 sq m ESTIMATED GFR IS NOT yebu=9298) ACCURATE CREATININE CLEARANCE IN PREDICTING GLOMERULAR FILTRATION RATE. ESTIMATED GFR IS NOT APPLICABLE FOR DIALYSIS PATIENTS. IRON, TIBC, % SAT. (WITHOUT FERRITIN)2018-11-23 05:55:00 Test Item Value Reference Range Comments IRON (BEAKER) (test fsku=609) 46.0 ug/dL 40.0-160.0 TOTAL IRON BINDING CAPACITY (BEAKER) (test 269 ug/dL 250-450 aeeu=222) IRON % SATURATION (2) (BEAKER) (test aszw=7653) 17 % 20-55 [id number] 05:54:00 Test Item Value Reference Range Comments ALPHA-1 ANTITRYPSIN (BEAKER) (test rhck=323) 202.70 mg/dL 90.00-200.00 COMPREHENSIVE METABOLIC [id number] 00:16:00 Test Item Value Reference Range Comments TOTAL PROTEIN (BEAKER) 6.8 gm/dL 6.0-8.3 (test wsdp=134) ALBUMIN (BEAKER) (test 3.3 g/dL 3.5-5.0 zrkt=4419) ALKALINE PHOSPHATASE 114 U/L 40-150 (BEAKER) (test iqyy=610) BILIRUBIN TOTAL (BEAKER) 0.6 mg/dL 0.2-1.2 (test ghxx=334) SODIUM (BEAKER) (test 130 meq/L 136-145 zkvs=116) POTASSIUM (BEAKER) (test 4.4 meq/L 3.5-5.1 pqid=903) CHLORIDE (BEAKER) (test 99 meq/L 98-107 hnxn=993) CO2 (BEAKER) (test 22 meq/L 22-29 kjcl=757) BLOOD UREA NITROGEN 46 mg/dL 7-21 (BEAKER) (test jquo=424) CREATININE (BEAKER) (test 2.40 mg/dL 0.57-1.25 qizl=220) GLUCOSE RANDOM (BEAKER) 153 mg/dL 70-105 (test byty=317) CALCIUM (BEAKER) (test 9.1 mg/dL 8.4-10.2 rpji=785) AST (SGOT) (BEAKER) (test 25 U/L 5-34 gkuj=879) ALT (SGPT) (BEAKER) (test 17 U/L 6-55 tcyd=932) EGFR (BEAKER) (test 21 mL/min/1.73 sq m ESTIMATED GFR IS NOT disj=6316) ACCURATE CREATININE CLEARANCE IN PREDICTING GLOMERULAR FILTRATION RATE. ESTIMATED GFR IS NOT APPLICABLE FOR DIALYSIS PATIENTS. [id number] 23:52:00 Test Item Value Reference Range Comments PROTIME (BEAKER) (test ggcy=558) 13.3 seconds 11.7-14.7 INR (BEAKER) (test babi=163) 1.0 <=5.9 PARTIAL THROMBOPLASTIN TIME (BEAKER) (test 26.9 seconds 22.5-36.0 cmpm=794) RECOMMENDED COUMADIN/WARFARIN INR THERAPY RANGESSTANDARD DOSE: 2.0 - 3.0 Includes: PROPHYLAXIS forvenous thrombosis, systemic embolization; TREATMENT for venous thrombosis and/or pulmonary embolus.HIGH RISK: Target INR is 2.5-3.5 for patients with mechanical heart valves.POCT-GLUCOSE [id number] 21:25:00 Test Item Value Reference Range Comments POC-GLUCOSE METER (BEAKER) 178 mg/dL 70-[address] [facility] [address] [facility] (test jchn=5399) [facility] [address]
[2019-10-29] MEDS ORDERED: ALBUMIN HUMAN 25% 200 ML IV ONE (10:20)
--- NOTE | 2019-10-29 10:33 | RAD REPORT ---
EXAM DESCRIPTION: US - Paracentesis Proc Guidance - 10/29/2019 9:55 am CLINICAL HISTORY: ASCITES Ascites COMPARISON: Paracentesis Proc Guidance dated 10/22/2019 FINDINGS: Informed consent was obtained and time-out was performed. Patient's abdomen was prepped and draped in the usual sterile fashion. 1% lidocaine was used for loca l anesthetic purposes. A small skin incision was made in the left lower quadrant region. A paracentesis catheter was guided into the peroneal cavity under sonographic guidance. A small amount of fluid was sent for requested lab studies. A large volume paracentesis was performed . The patient tolerated the procedure well. Patient was administered IV albumin per protocol following the procedure. IMPRESSION: Successful ultrasound-guided paracentesis.
[2019-10-29 11:10] VITALS: BMI 43.7
[2019-10-29 11:29] LABS: Body Fluid WBC 127 /mm^3
[2019-10-29 12:03] LABS: Body Fluid Source PERITONEAL
[2019-10-29 12:05] LABS: Appearance TURBID (CLEAR); Color of fluid Orange (COLORLESS)
[2019-10-29 12:07] VITALS: TEMP 98.6
[2019-10-29 12:08] VITALS: BP 131/72; O2SAT 92
== END 2019-10-29 11:37 | disposition home or self-care (01) ==
LOC: DS 08:09
PROVIDERS: ATTEND Internal Medicine Hepatology
DX: R18.8 Other ascites (principal)
CPT/HCPCS: 36415; 89050; 82565; 96365; 49083; P9047

== ENCOUNTER 2019-10-31 17:35 | Emergency (ER) | payer OTHER ==
--- OUTSIDE RECORDS SUMMARY | 2019-10-31 17:45 | XMS REPORT ---
:1960 [facility] Address [address] [place] [address] Dr. Melton [address] [place] [id number] Care Team Providers Name Role Phone DANIEL [...] Reference Range Comments TOTAL PROTEIN (BEAKER) (test zrpz=322) 6.5 gm/dL 6.0-8.3 ALBUMIN (BEAKER) (test etha=6906) 3.0 g/dL 3.5-5.0 BILIRUBIN TOTAL (BEAKER) (test ynnk=403) 1.5 mg/dL 0.2-1.2 BILIRUBIN DIRECT (BEAKER) (test hdln=376) 0.7 mg/dL 0.1-0.5 ALKALINE PHOSPHATASE (BEAKER) (test kjfq=926) 120 U/L 40-150 AST (SGOT) (BEAKER) (test efbf=687) 34 U/L 5-34 ALT (SGPT) (BEAKER) (test mxtt=440) 21 U/L 6-55 BASIC METABOLIC [id number] 15:39:00 Test Item Value Reference Range Comments SODIUM (BEAKER) (test 135 meq/L 136-145 eldx=560) POTASSIUM (BEAKER) (test 3.8 meq/L 3.5-5.1 akzm=253) CHLORIDE (BEAKER) (test 99 meq/L 98-107 mhvo=547) CO2 (BEAKER) (test 31 meq/L 22-29 hchi=319) BLOOD UREA NITROGEN 21 mg/dL 7-21 (BEAKER) (test dlrd=712) CREATININE (BEAKER) (test 1.70 mg/dL 0.57-1.25 zrbs=602) GLUCOSE RANDOM (BEAKER) 290 mg/dL 70-105 (test vjxg=316) CALCIUM (BEAKER) (test 8.4 mg/dL 8.4-10.2 szzm=814) EGFR (BEAKER) (test 31 mL/min/1.73 sq m ESTIMATED GFR IS NOT thba=4447) ACCURATE CREATININE CLEARANCE IN PREDICTING GLOMERULAR FILTRATION RATE. ESTIMATED GFR IS NOT APPLICABLE FOR DIALYSIS PATIENTS. PROTHROMBIN [id number] 15:39:00 Test Item Value Reference Range Comments PROTIME (BEAKER) (test myxs=721) 14.2 seconds 11.9-14.2 INR (BEAKER) (test psam=820) 1.2 <=5.9 Effective 04/01/2019: PT Reference Range ChangeNew: 11.9-14.2 Previous: 11.7- 14.7RECOMMENDED COUMADIN/WARFARIN INR THERAPY RANGESSTANDARD DOSE: 2.0-3.0 Includes: PROPHYLAXIS for venous thrombosis, systemic embolization; TREATMENT for venous thrombosis and/or pulmonary embolus.HIGH RISK: Target INR is2.5-3.5 for patients wiht mechanical heart valves.CBC W/PLT COUNT & AUTO [id number] 15:25:00 Test Item Value Reference Range Comments WHITE BLOOD CELL COUNT (BEAKER) (test tkhc=771) 5.8 K/ L 3.5-10.5 RED BLOOD CELL COUNT (BEAKER) (test pxiu=353) 3.30 M/ L 3.93-5.22 HEMOGLOBIN (BEAKER) (test znen=550) 8.9 GM/DL 11.2-15.7 HEMATOCRIT (BEAKER) (test wnqt=382) 28.2 % 34.1-44.9 MEAN CORPUSCULAR VOLUME (BEAKER) (test atky=335) 85.5 fL 79.4-94.8 MEAN CORPUSCULAR HEMOGLOBIN (BEAKER) (test 27.0 pg 25.6-32.2 iwtt=192) MEAN CORPUSCULAR HEMOGLOBIN CONC (BEAKER) (test 31.6 GM/DL 32.2-35.5 avnw=624) RED CELL DISTRIBUTION WIDTH (BEAKER) (test 16.6 % 11.7-14.4 dxlt=164) PLATELET COUNT (BEAKER) (test ogbn=803) 185 K/CU MM 150-450 MEAN PLATELET VOLUME (BEAKER) (test giwl=366) 9.0 fL 9.4-12.3 NUCLEATED RED BLOOD CELLS (BEAKER) (test 0 /100 WBC 0-0 iquw=329) NEUTROPHILS RELATIVE PERCENT (BEAKER) (test 50 % gutv=946) LYMPHOCYTES RELATIVE PERCENT (BEAKER) (test 32 % oqoe=793) MONOCYTES RELATIVE PERCENT (BEAKER) (test 7 % lhdj=322) EOSINOPHILS RELATIVE PERCENT (BEAKER) (test 10 % jqpx=911) BASOPHILS RELATIVE PERCENT (BEAKER) (test 2 % toac=020) NEUTROPHILS ABSOLUTE COUNT (BEAKER) (test 2.88 K/ L 1.56-6.13 pghq=031) LYMPHOCYTES ABSOLUTE COUNT (BEAKER) (test 1.86 K/ L 1.18-3.74 qpvq=348) MONOCYTES ABSOLUTE COUNT (BEAKER) (test 0.38 K/ L 0.24-0.36 raxs=079) EOSINOPHILS ABSOLUTE COUNT (BEAKER) (test 0.55 K/ L 0.04-0.36 hdtw=013) BASOPHILS ABSOLUTE COUNT (BEAKER) (test 0.10 K/ L 0.01-0.08 betz=160) IMMATURE GRANULOCYTES-RELATIVE PERCENT (BEAKER) 0 % 0-1 (test obms=4526) PROTHROMBIN [id number] 17:20:00 Test Item Value Reference Range Comments PROTIME (BEAKER) (test dspq=232) 13.6 seconds 11.9-14.2 INR (BEAKER) (test amyo=072) 1.1 <=5.9 Effective 04/01/2019: PT Reference Range ChangeNew: 11.9-14.2 Previous: 11.7- 14.7RECOMMENDED COUMADIN/WARFARIN INR THERAPY RANGESSTANDARD DOSE: 2.0-3.0 Includes: PROPHYLAXIS for venous thrombosis, systemic embolization; TREATMENT for venous thrombosis and/or pulmonary embolus.HIGH RISK: Target INR is2.5-3.5 for patients wiht mechanical heart valves.HEPATIC FUNCTION [id number] 17:16 :00 Test Item Value Reference Range Comments TOTAL PROTEIN (BEAKER) (test nozx=040) 6.7 gm/dL 6.0-8.3 ALBUMIN (BEAKER) (test ugwu=2012) 3.0 g/dL 3.5-5.0 BILIRUBIN TOTAL (BEAKER) (test eknr=475) 1.4 mg/dL 0.2-1.2 BILIRUBIN DIRECT (BEAKER) (test jvuv=830) 0.7 mg/dL 0.1-0.5 ALKALINE PHOSPHATASE (BEAKER) (test zquc=208) 139 U/L 40-150 AST (SGOT) (BEAKER) (test sjaw=482) 32 U/L 5-34 ALT (SGPT) (BEAKER) (test tvwf=530) 16 U/L 6-55 BASIC METABOLIC [id number] 17:16:00 Test Item Value Reference Range Comments SODIUM (BEAKER) (test 139 meq/L 136-145 zosd=794) POTASSIUM (BEAKER) (test 3.6 meq/L 3.5-5.1 yyji=712) CHLORIDE (BEAKER) (test 99 meq/L 98-107 tbnh=784) CO2 (BEAKER) (test 32 meq/L 22-29 jtmd=879) BLOOD UREA NITROGEN 26 mg/dL 7-21 (BEAKER) (test lngg=310) CREATININE (BEAKER) (test 1.68 mg/dL 0.57-1.25 pezr=551) GLUCOSE RANDOM (BEAKER) 263 mg/dL 70-105 (test xkwn=955) CALCIUM (BEAKER) (test 9.0 mg/dL 8.4-10.2 zqrn=905) EGFR (BEAKER) (test 31 mL/min/1.73 sq m ESTIMATED GFR IS NOT zyck=2436) ACCURATE CREATININE CLEARANCE IN PREDICTING GLOMERULAR FILTRATION RATE. ESTIMATED GFR IS NOT APPLICABLE FOR DIALYSIS PATIENTS. CBC W/PLT COUNT & AUTO [id number] 17:01:00 Test Item Value Reference Range Comments WHITE BLOOD CELL COUNT (BEAKER) (test pfuo=657) 7.4 K/ L 3.5-10.5 RED BLOOD CELL COUNT (BEAKER) (test votw=640) 3.44 M/ L 3.93-5.22 HEMOGLOBIN (BEAKER) (test ygyz=546) 9.6 GM/DL 11.2-15.7 HEMATOCRIT (BEAKER) (test tkab=799) 30.1 % 34.1-44.9 MEAN CORPUSCULAR VOLUME (BEAKER) (test dhxj=790) 87.5 fL 79.4-94.8 MEAN CORPUSCULAR HEMOGLOBIN (BEAKER) (test 27.9 pg 25.6-32.2 hvvo=814) MEAN CORPUSCULAR HEMOGLOBIN CONC (BEAKER) (test 31.9 GM/DL 32.2-35.5 rksw=043) RED CELL DISTRIBUTION WIDTH (BEAKER) (test 16.0 % 11.7-14.4 zrnl=096) PLATELET COUNT (BEAKER) (test mwfw=258) 190 K/CU MM 150-450 MEAN PLATELET VOLUME (BEAKER) (test nzcl=184) 9.3 fL 9.4-12.3 NUCLEATED RED BLOOD CELLS (BEAKER) (test 0 /100 WBC 0-0 nvey=443) NEUTROPHILS RELATIVE PERCENT (BEAKER) (test 65 % safi=096) LYMPHOCYTES RELATIVE PERCENT (BEAKER) (test 23 % dpbj=099) MONOCYTES RELATIVE PERCENT (BEAKER) (test 6 % poum=937) EOSINOPHILS RELATIVE PERCENT (BEAKER) (test 5 % gsxs=629) BASOPHILS RELATIVE PERCENT (BEAKER) (test 1 % chfm=050) NEUTROPHILS ABSOLUTE COUNT (BEAKER) (test 4.83 K/ L 1.56-6.13 etkz=029) LYMPHOCYTES ABSOLUTE COUNT (BEAKER) (test 1.67 K/ L 1.18-3.74 hsfr=333) MONOCYTES ABSOLUTE COUNT (BEAKER) (test 0.41 K/ L 0.24-0.36 cbxh=266) EOSINOPHILS ABSOLUTE COUNT (BEAKER) (test 0.40 K/ L 0.04-0.36 ovwn=326) BASOPHILS ABSOLUTE COUNT (BEAKER) (test 0.06 K/ L 0.01-0.08 dbsg=189) IMMATURE GRANULOCYTES-RELATIVE PERCENT (BEAKER) 0 % 0-1 (test yhfm=9559) POCT-GLUCOSE [id number] 13:48:00 Test Item Value Reference Range Comments POC-GLUCOSE METER (BEAKER) 203 mg/dL 70-[address] [facility] [address] [facility] (test gipo=6847) [facility] [address] POCT-GLUCOSE [id number] 09:45:00 Test Item Value Reference Range Comments POC-GLUCOSE METER (BEAKER) 168 mg/dL 70-[address] [facility] [address] [facility] (test nzgi=9723) [facility] [address] POCT-GLUCOSE [id number] 08:06:00 Test Item Value Reference Range Comments POC-GLUCOSE METER (BEAKER) 177 mg/dL 70-110 TESTED AT [address] (test yelz=7168) [facility] [address] COMPREHENSIVE METABOLIC [id number] 06:11:00 Test Item Value Reference Range Comments TOTAL PROTEIN (BEAKER) 5.5 gm/dL 6.0-8.3 (test oxtf=303) ALBUMIN (BEAKER) (test 3.0 g/dL 3.5-5.0 pqyl=1309) ALKALINE PHOSPHATASE 117 U/L 40-150 (BEAKER) (test eteu=804) BILIRUBIN TOTAL (BEAKER) 1.2 mg/dL 0.2-1.2 (test gpoo=219) SODIUM (BEAKER) (test 138 meq/L 136-145 csop=335) POTASSIUM (BEAKER) (test 4.1 meq/L 3.5-5.1 bqxa=594) CHLORIDE (BEAKER) (test 102 meq/L 98-107 sslv=574) CO2 (BEAKER) (test 29 meq/L 22-29 dulq=082) BLOOD UREA NITROGEN 23 mg/dL 7-21 (BEAKER) (test iksq=699) CREATININE (BEAKER) (test 1.26 mg/dL 0.57-1.25 qgic=706) GLUCOSE RANDOM (BEAKER) 177 mg/dL 70-105 (test mllw=789) CALCIUM (BEAKER) (test 8.3 mg/dL 8.4-10.2 cqsq=316) AST (SGOT) (BEAKER) (test 26 U/L 5-34 lrqp=382) ALT (SGPT) (BEAKER) (test 9 U/L 6-55 woeq=180) EGFR (BEAKER) (test 43 mL/min/1.73 sq m ESTIMATED GFR IS NOT ncyx=0005) ACCURATE CREATININE CLEARANCE IN PREDICTING GLOMERULAR FILTRATION RATE. ESTIMATED GFR IS NOT APPLICABLE FOR DIALYSIS PATIENTS. CBC (HEMOGRAM ONLY)2019-06-03 05:17:00 Test Item Value Reference Range Comments WHITE BLOOD CELL COUNT (BEAKER) (test vysv=228) 6.0 K/ L 3.5-10.5 RED BLOOD CELL COUNT (BEAKER) (test awky=879) 2.95 M/ L 3.93-5.22 HEMOGLOBIN (BEAKER) (test uruv=065) 8.1 GM/DL 11.2-15.7 HEMATOCRIT (BEAKER) (test acsk=795) 26.3 % 34.1-44.9 MEAN CORPUSCULAR VOLUME (BEAKER) (test fkme=235) 89.2 fL 79.4-94.8 MEAN CORPUSCULAR HEMOGLOBIN (BEAKER) (test 27.5 pg 25.6-32.2 orna=285) MEAN CORPUSCULAR HEMOGLOBIN CONC (BEAKER) (test 30.8 GM/DL 32.2-35.5 bzkk=946) RED CELL DISTRIBUTION WIDTH (BEAKER) (test 17.3 % 11.7-14.4 qrus=957) PLATELET COUNT (BEAKER) (test bzjs=042) 203 K/CU MM 150-450 MEAN PLATELET VOLUME (BEAKER) (test ryyg=245) 9.2 fL 9.4-12.3 NUCLEATED RED BLOOD CELLS (BEAKER) (test 0 /100 WBC 0-0 omhw=973) POCT-GLUCOSE [id number] 23:37:00 Test Item Value Reference Range Comments POC-GLUCOSE METER (BEAKER) 212 mg/dL 70-110 TESTED AT [place] [id number] (test wgqt=1977) [facility] [address] POCT-GLUCOSE [id number] 16:58:00 Test Item Value Reference Range Comments POC-GLUCOSE METER (BEAKER) 313 mg/dL 70-110 TESTED AT [address] (test raar=8881) [facility] [address] ANG, TIPSS [id number] 14:25:00Reason for exam:->still recurrent paracentesisFINAL REPORT Procedures:1. [...] the patient's medical record by the nurse. Day Camp Counselor: Akil Chung MD. Frame Fixer: MD Ishaan (Fellow) Approach: 1. Right lower [...] skin and deep soft tissues. A 5 Moldovan one-step catheter wasinserted and removed from the [...] The needle was exchanged for a 4 Moldovan micropuncture sheath. The micropuncture sheath was exchanged over a 0.035 Bentson wire for a 5 Moldovan x 10 cm vascular sheath. The TIPS stent was then cannulated using a 5 Moldovan C2 catheter and 0.035 angled Glidewire. The [...] Verified Date/Time: 06/02/2019 14:25:34 Reading Location : [place] [address] Angio Body Reading Room POCT-GLUCOSE [id number] 11:52:00 Test Item Value Reference Range Comments POC-GLUCOSE METER (BEAKER) 159 mg/dL 70-[address] [facility] [address] [facility] (test vhrc=7619) [facility] [address] [id number] 05:55:00 Test Item Value Reference Range Comments MAGNESIUM (BEAKER) (test nmls=666) 1.6 mg/dL 1.6-2.6 COMPREHENSIVE METABOLIC [id number] 05:55:00 Test Item Value Reference Range Comments TOTAL PROTEIN (BEAKER) 5.7 gm/dL 6.0-8.3 (test eina=269) ALBUMIN (BEAKER) (test 3.3 g/dL 3.5-5.0 qpda=7437) ALKALINE PHOSPHATASE 118 U/L 40-150 (BEAKER) (test bieb=243) BILIRUBIN TOTAL (BEAKER) 1.4 mg/dL 0.2-1.2 (test lgyp=481) SODIUM (BEAKER) (test 140 meq/L 136-145 fxom=168) POTASSIUM (BEAKER) (test 3.3 meq/L 3.5-5.1 xkri=830) CHLORIDE (BEAKER) (test 101 meq/L 98-107 vgvt=735) CO2 (BEAKER) (test 31 meq/L 22-29 gpmi=796) BLOOD UREA NITROGEN 23 mg/dL 7-21 (BEAKER) (test ycyp=992) CREATININE (BEAKER) (test 1.33 mg/dL 0.57-1.25 vvcb=087) GLUCOSE RANDOM (BEAKER) 131 mg/dL 70-105 (test drfl=475) CALCIUM (BEAKER) (test 8.7 mg/dL 8.4-10.2 niki=468) AST (SGOT) (BEAKER) (test 27 U/L 5-34 okvh=042) ALT (SGPT) (BEAKER) (test 11 U/L 6-55 qnhd=338) EGFR (BEAKER) (test 41 mL/min/1.73 sq m ESTIMATED GFR IS NOT docv=2233) ACCURATE CREATININE CLEARANCE IN PREDICTING GLOMERULAR FILTRATION RATE. ESTIMATED GFR IS NOT APPLICABLE FOR DIALYSIS PATIENTS. CBC W/PLT COUNT & AUTO [id number] 05:43:00 Test Item Value Reference Range Comments WHITE BLOOD CELL COUNT (BEAKER) (test sdao=413) 6.0 K/ L 3.5-10.5 RED BLOOD CELL COUNT (BEAKER) (test svpp=521) 2.97 M/ L 3.93-5.22 HEMOGLOBIN (BEAKER) (test ydfp=189) 8.2 GM/DL 11.2-15.7 HEMATOCRIT (BEAKER) (test yxyg=429) 26.0 % 34.1-44.9 MEAN CORPUSCULAR VOLUME (BEAKER) (test stkx=876) 87.5 fL 79.4-94.8 MEAN CORPUSCULAR HEMOGLOBIN (BEAKER) (test 27.6 pg 25.6-32.2 uiim=814) MEAN CORPUSCULAR HEMOGLOBIN CONC (BEAKER) (test 31.5 GM/DL 32.2-35.5 qtod=101) RED CELL DISTRIBUTION WIDTH (BEAKER) (test 17.7 % 11.7-14.4 etxk=164) PLATELET COUNT (BEAKER) (test ewlp=647) 194 K/CU MM 150-450 MEAN PLATELET VOLUME (BEAKER) (test dyrl=076) 9.3 fL 9.4-12.3 NUCLEATED RED BLOOD CELLS (BEAKER) (test 0 /100 WBC 0-0 uvan=985) NEUTROPHILS RELATIVE PERCENT (BEAKER) (test 48 % tgwm=098) LYMPHOCYTES RELATIVE PERCENT (BEAKER) (test 31 % yycr=373) MONOCYTES RELATIVE PERCENT (BEAKER) (test 10 % jdsn=866) EOSINOPHILS RELATIVE PERCENT (BEAKER) (test 9 % xhcm=331) BASOPHILS RELATIVE PERCENT (BEAKER) (test 1 % mloc=146) NEUTROPHILS ABSOLUTE COUNT (BEAKER) (test 2.84 K/ L 1.56-6.13 ujlx=723) LYMPHOCYTES ABSOLUTE COUNT (BEAKER) (test 1.87 K/ L 1.18-3.74 kopy=642) MONOCYTES ABSOLUTE COUNT (BEAKER) (test 0.60 K/ L 0.24-0.36 qctm=005) EOSINOPHILS ABSOLUTE COUNT (BEAKER) (test 0.56 K/ L 0.04-0.36 smrc=887) BASOPHILS ABSOLUTE COUNT (BEAKER) (test 0.08 K/ L 0.01-0.08 pmrd=885) IMMATURE GRANULOCYTES-RELATIVE PERCENT (BEAKER) 0 % 0-1 (test rmwp=3561) [id number] 05:42:00 Test Item Value Reference Range Comments PHOSPHORUS (BEAKER) (test lktc=366) 2.3 mg/dL 2.3-4.7 POCT-GLUCOSE [id number] 22:34:00 Test Item Value Reference Range Comments POC-GLUCOSE METER (BEAKER) 192 mg/dL 70-110 TESTED AT [address] (test dpsb=9523) [place] [id number] POCT-GLUCOSE [id number] 17:01:00 Test Item Value Reference Range Comments POC-GLUCOSE METER (BEAKER) 250 mg/dL 70-110 TESTED AT [address] (test iwkr=9766) [place] [address] [id number] 07:42:00 Test Item Value Reference Range Comments MAGNESIUM (BEAKER) (test 1.6 mg/dL 1.6-2.6 Specimen slightly hemolyzed uuvz=531) [id number] 07:42:00 Test Item Value Reference Range Comments PHOSPHORUS (BEAKER) (test 2.8 mg/dL 2.3-4.7 Specimen slightly hemolyzed ialp=723) COMPREHENSIVE METABOLIC [id number] 07:42:00 Test Item Value Reference Range Comments TOTAL PROTEIN (BEAKER) 5.5 gm/dL 6.0-8.3 Specimen slightly (test vkeo=527) hemolyzed ALBUMIN (BEAKER) (test 2.9 g/dL 3.5-5.0 Specimen slightly qihz=5171) hemolyzed ALKALINE PHOSPHATASE 125 U/L 40-150 (BEAKER) (test gxxf=015) BILIRUBIN TOTAL (BEAKER) 1.1 mg/dL 0.2-1.2 Specimen slightly (test hiny=985) hemolyzed SODIUM (BEAKER) (test 141 meq/L 136-145 rgda=982) POTASSIUM (BEAKER) (test 3.6 meq/L 3.5-5.1 Specimen slightly nvww=057) hemolyzed CHLORIDE (BEAKER) (test 101 meq/L 98-107 rypr=299) CO2 (BEAKER) (test 31 meq/L 22-29 qojk=408) BLOOD UREA NITROGEN 23 mg/dL 7-21 (BEAKER) (test nada=722) CREATININE (BEAKER) (test 1.50 mg/dL 0.57-1.25 Specimen slightly xakx=409) hemolyzed GLUCOSE RANDOM (BEAKER) 153 mg/dL 70-105 (test jycm=308) CALCIUM (BEAKER) (test 8.7 mg/dL 8.4-10.2 qqfp=563) AST (SGOT) (BEAKER) (test 35 U/L 5-34 Specimen slightly ztbn=538) hemolyzed ALT (SGPT) (BEAKER) (test 12 U/L 6-55 Specimen slightly lrar=679) hemolyzed EGFR (BEAKER) (test 35 mL/min/1.73 sq m ESTIMATED GFR IS NOT nvnr=0790) ACCURATE CREATININE CLEARANCE IN PREDICTING GLOMERULAR FILTRATION RATE. ESTIMATED GFR IS NOT APPLICABLE FOR DIALYSIS PATIENTS. POCT-GLUCOSE [id number] 07:38:00 Test Item Value Reference Range Comments POC-GLUCOSE METER (BEAKER) 154 mg/dL 70-[address] [facility] [address] [facility] (test fqex=4166) [facility] [address] CBC W/PLT COUNT & AUTO [id number] 06:24:00 Test Item Value Reference Range Comments WHITE BLOOD CELL COUNT (BEAKER) (test vxvr=419) 6.0 K/ L 3.5-10.5 RED BLOOD CELL COUNT (BEAKER) (test avdi=898) 3.09 M/ L 3.93-5.22 HEMOGLOBIN (BEAKER) (test oekm=060) 8.5 GM/DL 11.2-15.7 HEMATOCRIT (BEAKER) (test jows=354) 27.0 % 34.1-44.9 MEAN CORPUSCULAR VOLUME (BEAKER) (test cwco=105) 87.4 fL 79.4-94.8 MEAN CORPUSCULAR HEMOGLOBIN (BEAKER) (test 27.5 pg 25.6-32.2 dort=310) MEAN CORPUSCULAR HEMOGLOBIN CONC (BEAKER) (test 31.5 GM/DL 32.2-35.5 fwwe=542) RED CELL DISTRIBUTION WIDTH (BEAKER) (test 17.7 % 11.7-14.4 vkre=276) PLATELET COUNT (BEAKER) (test rpor=715) 196 K/CU MM 150-450 MEAN PLATELET VOLUME (BEAKER) (test xgyi=432) 8.9 fL 9.4-12.3 NUCLEATED RED BLOOD CELLS (BEAKER) (test 0 /100 WBC 0-0 abrq=529) NEUTROPHILS RELATIVE PERCENT (BEAKER) (test 44 % pgab=265) LYMPHOCYTES RELATIVE PERCENT (BEAKER) (test 34 % ketm=636) MONOCYTES RELATIVE PERCENT (BEAKER) (test 11 % hhnk=270) EOSINOPHILS RELATIVE PERCENT (BEAKER) (test 9 % fbvf=479) BASOPHILS RELATIVE PERCENT (BEAKER) (test 2 % uwwu=589) NEUTROPHILS ABSOLUTE COUNT (BEAKER) (test 2.64 K/ L 1.56-6.13 rrnj=014) LYMPHOCYTES ABSOLUTE COUNT (BEAKER) (test 2.03 K/ L 1.18-3.74 lepx=678) MONOCYTES ABSOLUTE COUNT (BEAKER) (test 0.64 K/ L 0.24-0.36 qtxd=039) EOSINOPHILS ABSOLUTE COUNT (BEAKER) (test 0.54 K/ L 0.04-0.36 ihmy=850) BASOPHILS ABSOLUTE COUNT (BEAKER) (test 0.09 K/ L 0.01-0.08 fwli=943) IMMATURE GRANULOCYTES-RELATIVE PERCENT (BEAKER) 0 % 0-1 (test ejda=2083) CALCIUM, [id number] 05:35:00 Test Item Value Reference Range Comments CALCIUM IONIZED (BEAKER) (test uzwr=286) 0.99 mmol/L 1.12-1.27 PH, BLOOD (BEAKER) (test qljv=9702) 7.50 POCT-GLUCOSE [id number] 22:12:00 Test Item Value Reference Range Comments POC-GLUCOSE METER (BEAKER) 246 mg/dL 70-110 TESTED AT [address] (test miow=4772) [facility] [id number] POCT-GLUCOSE [id number] 17:11:00 Test Item Value Reference Range Comments POC-GLUCOSE METER (BEAKER) 201 mg/dL 70-[address] [facility] [address] [facility] (test kanj=7761) [facility] [address] POCT-GLUCOSE [id number] 13:24:00 Test Item Value Reference Range Comments POC-GLUCOSE METER (BEAKER) 173 mg/dL 70-110 TESTED AT [place] [id number] [facility] (test wexn=1488) [facility] [address] COMPREHENSIVE METABOLIC [id number] 09:06:00 Test Item Value Reference Range Comments TOTAL PROTEIN (BEAKER) 5.8 gm/dL 6.0-8.3 (test pwer=543) ALBUMIN (BEAKER) (test 3.2 g/dL 3.5-5.0 ofwu=8873) ALKALINE PHOSPHATASE 125 U/L 40-150 (BEAKER) (test varv=563) BILIRUBIN TOTAL (BEAKER) 1.6 mg/dL 0.2-1.2 (test tdrz=096) SODIUM (BEAKER) (test 140 meq/L 136-145 wbvt=726) POTASSIUM (BEAKER) (test 3.4 meq/L 3.5-5.1 uava=951) CHLORIDE (BEAKER) (test 100 meq/L 98-107 jsif=277) CO2 (BEAKER) (test 31 meq/L 22-29 qeur=009) BLOOD UREA NITROGEN 21 mg/dL 7-21 (BEAKER) (test tmoo=371) CREATININE (BEAKER) (test 1.57 mg/dL 0.57-1.25 bizh=747) GLUCOSE RANDOM (BEAKER) 138 mg/dL 70-105 (test kxjn=063) CALCIUM (BEAKER) (test 8.9 mg/dL 8.4-10.2 ffqz=219) AST (SGOT) (BEAKER) (test 33 U/L 5-34 jvpx=916) ALT (SGPT) (BEAKER) (test 13 U/L 6-55 twxl=451) EGFR (BEAKER) (test 33 mL/min/1.73 sq m ESTIMATED GFR IS NOT aphg=4885) ACCURATE CREATININE CLEARANCE IN PREDICTING GLOMERULAR FILTRATION RATE. ESTIMATED GFR IS NOT APPLICABLE FOR DIALYSIS PATIENTS. Specimen slightly ictericPOCT-GLUCOSE [id number] 07:53:00 Test Item Value Reference Range Comments POC-GLUCOSE METER (BEAKER) 157 mg/dL 70-110 TESTED AT [address] (test kwhg=3358) [facility] [id number] CBC (HEMOGRAM ONLY)2019-05-31 06:33:00 Test Item Value Reference Range Comments WHITE BLOOD CELL COUNT (BEAKER) (test dkix=163) 5.7 K/ L 3.5-10.5 RED BLOOD CELL COUNT (BEAKER) (test hnok=523) 3.25 M/ L 3.93-5.22 HEMOGLOBIN (BEAKER) (test glxg=695) 8.9 GM/DL 11.2-15.7 HEMATOCRIT (BEAKER) (test edym=813) 28.3 % 34.1-44.9 MEAN CORPUSCULAR VOLUME (BEAKER) (test ihwp=996) 87.1 fL 79.4-94.8 MEAN CORPUSCULAR HEMOGLOBIN (BEAKER) (test 27.4 pg 25.6-32.2 pflx=026) MEAN CORPUSCULAR HEMOGLOBIN CONC (BEAKER) (test 31.4 GM/DL 32.2-35.5 lubs=776) RED CELL DISTRIBUTION WIDTH (BEAKER) (test 17.5 % 11.7-14.4 paqk=985) PLATELET COUNT (BEAKER) (test fqek=183) 188 K/CU MM 150-450 MEAN PLATELET VOLUME (BEAKER) (test gcbx=351) 9.1 fL 9.4-12.3 NUCLEATED RED BLOOD CELLS (BEAKER) (test 0 /100 WBC 0-0 ayul=019) POCT-GLUCOSE [id number] 22:28:00 Test Item Value Reference Range Comments POC-GLUCOSE METER (BEAKER) 193 mg/dL 70-110 TESTED AT [address] (test jcfz=4489) [facility] [address] POCT-GLUCOSE [id number] 17:19:00 Test Item Value Reference Range Comments POC-GLUCOSE METER (BEAKER) 155 mg/dL 70-110 TESTED AT [address] (test omhq=2770) [facility] [address] POCT-GLUCOSE [id number] 12:44:00 Test Item Value Reference Range Comments POC-GLUCOSE METER (BEAKER) 189 mg/dL 70-[address] [facility] [address] [facility] (test yavo=7763) [facility] [address] POCT-GLUCOSE [id number] 08:30:00 Test Item Value Reference Range Comments POC-GLUCOSE METER (BEAKER) 140 mg/dL 70-[address] [facility] [address] [facility] (test gwjy=6338) [facility] [address] [id number] 05:15:00 Test Item Value Reference Range Comments THYROID STIMULATING HORMONE (BEAKER) (test 6.32 uIU/mL 0.35-4.94 vwnr=024) T4, [id number] 05:11:00 Test Item Value Reference Range Comments FREE T4 (BEAKER) (test qqjr=274) 1.70 ng/dL 0.70-1.48 [id number] 04:53:00 Test Item Value Reference Range Comments PHOSPHORUS (BEAKER) (test cfgq=719) 2.4 mg/dL 2.3-4.7 [id number] 04:53:00 Test Item Value Reference Range Comments MAGNESIUM (BEAKER) (test lyuc=801) 1.8 mg/dL 1.6-2.6 COMPREHENSIVE METABOLIC [id number] 04:53:00 Test Item Value Reference Range Comments TOTAL PROTEIN (BEAKER) 5.1 gm/dL 6.0-8.3 (test nhrw=645) ALBUMIN (BEAKER) (test 2.9 g/dL 3.5-5.0 iwnx=8770) ALKALINE PHOSPHATASE 101 U/L 40-150 (BEAKER) (test jmut=371) BILIRUBIN TOTAL (BEAKER) 1.6 mg/dL 0.2-1.2 (test frdl=117) SODIUM (BEAKER) (test 137 meq/L 136-145 jzmn=425) POTASSIUM (BEAKER) (test 3.7 meq/L 3.5-5.1 vbdk=672) CHLORIDE (BEAKER) (test 99 meq/L 98-107 czsi=184) CO2 (BEAKER) (test 32 meq/L 22-29 zdyl=718) BLOOD UREA NITROGEN 20 mg/dL 7-21 (BEAKER) (test fijr=366) CREATININE (BEAKER) (test 1.55 mg/dL 0.57-1.25 dypa=340) GLUCOSE RANDOM (BEAKER) 157 mg/dL 70-105 (test bvea=918) CALCIUM (BEAKER) (test 8.3 mg/dL 8.4-10.2 usud=694) AST (SGOT) (BEAKER) (test 33 U/L 5-34 vcdl=738) ALT (SGPT) (BEAKER) (test 12 U/L 6-55 jxwx=680) EGFR (BEAKER) (test 34 mL/min/1.73 sq m ESTIMATED GFR IS NOT qxyn=7497) ACCURATE CREATININE CLEARANCE IN PREDICTING GLOMERULAR FILTRATION RATE. ESTIMATED GFR IS NOT APPLICABLE FOR DIALYSIS PATIENTS. CBC (HEMOGRAM ONLY)2019-05-30 04:13:00 Test Item Value Reference Range Comments WHITE BLOOD CELL COUNT (BEAKER) (test ttnn=667) 5.3 K/ L 3.5-10.5 RED BLOOD CELL COUNT (BEAKER) (test spyg=456) 2.75 M/ L 3.93-5.22 HEMOGLOBIN (BEAKER) (test tyuu=095) 7.6 GM/DL 11.2-15.7 HEMATOCRIT (BEAKER) (test grqf=621) 24.2 % 34.1-44.9 MEAN CORPUSCULAR VOLUME (BEAKER) (test twsh=592) 88.0 fL 79.4-94.8 MEAN CORPUSCULAR HEMOGLOBIN (BEAKER) (test 27.6 pg 25.6-32.2 lbxh=043) MEAN CORPUSCULAR HEMOGLOBIN CONC (BEAKER) (test 31.4 GM/DL 32.2-35.5 nwwa=205) RED CELL DISTRIBUTION WIDTH (BEAKER) (test 17.4 % 11.7-14.4 ohby=665) PLATELET COUNT (BEAKER) (test wrbc=553) 162 K/CU MM 150-450 MEAN PLATELET VOLUME (BEAKER) (test tmen=167) 9.2 fL 9.4-12.3 NUCLEATED RED BLOOD CELLS (BEAKER) (test 0 /100 WBC 0-0 fwjs=298) CALCIUM, [id number] 04:13:00 Test Item Value Reference Range Comments CALCIUM IONIZED (BEAKER) (test zxce=665) 0.98 mmol/L 1.12-1.27 PH, BLOOD (BEAKER) (test khnt=9690) 7.58 RAD, CHEST, 2 [id number] 23:47:00Reason for exam:->opacitiesFINAL REPORT Portable chest. HISTORY: [...] Verified Date/Time: 05/29/2019 23:47:08 Reading Location: [address] Consult Reading Room POCT-GLUCOSE [id number] 23:12:00 Test Item Value Reference Range Comments POC-GLUCOSE METER (BEAKER) 192 mg/dL 70-110 TESTED AT [address] (test agmj=6184) [facility] [address] URINALYSIS W/ [id number] 18:14:00 Test Item Value Reference Range Comments COLOR (BEAKER) (test ubxx=918) Yellow CLARITY (BEAKER) (test ybfk=681) Clear SPECIFIC GRAVITY UA (BEAKER) (test 1.011 1.001-1.035 vuno=328) PH UA (BEAKER) (test ttug=418) 8.5 5.0-8.0 PROTEIN UA (BEAKER) (test npcm=133) 20 mg/dL Negative GLUCOSE UA (BEAKER) (test vxku=825) Negative Negative KETONES UA (BEAKER) (test zsvp=695) Negative Negative BILIRUBIN UA (BEAKER) (test jspr=341) Negative Negative BLOOD UA (BEAKER) (test huwm=347) Negative Negative NITRITE UA (BEAKER) (test cnqs=414) Negative Negative LEUKOCYTE ESTERASE UA (BEAKER) (test Negative Negative alud=266) UROBILINOGEN UA (BEAKER) (test fhaa=312) 12.0 mg/dL 0.2-1.0 RBC UA (BEAKER) (test qami=412) < /HPF WBC UA (BEAKER) (test duli=226) 1 /HPF BACTERIA (BEAKER) (test ukwc=286) Rare SQUAMOUS EPITHELIAL (BEAKER) (test 3 /HPF ofhi=263) SOURCE(BEAKER) (test dceb=2147) Urine, Clean Catch POCT-GLUCOSE [id number] 16:55:00 Test Item Value Reference Range Comments POC-GLUCOSE METER (BEAKER) 186 mg/dL 70-110 TESTED AT [address] (test geir=9691) [facility] [address] TISSUE [id number] 15:15:00Surgical Pathology Report Case: [id number] Authorizing Provider: Shannen Giron MD Collected: 05/28/2019 1448 Ordering Location: [address] Received: 05/29/2019 0915 Service Pathologist: Padilla Reed MD Specimen: Polyp, Colon - Right/Ascending, taken by doug pathak PART A RIGHT ASCENDING COLON POLYP, POLYPECTOMY:TUBULAR ADENOMA. Signing Pathologist Direct Phone Line: [phone] signed by Padilla Reed MD on 05/29/2019 at 3:15 [id number] colonoscopyRight ascending colonReceived in formalin, labelled with the patients name, date of , and medical record number and labelled "right ascending colon polyp" are three portions of silva tissue measuring 0.5 x 0.4 x 0.3 cm in aggregate. Submitted in toto in one cassette. Performed.BODY FLUID CULTURE + GRAM [id number] 12:56:00 Test Item Value Reference Range Comments CULTURE (BEAKER) (test abee=3258) No growth GRAM STAIN RESULT (BEAKER) (test No WBCs cgxx=8052) GRAM STAIN RESULT (BEAKER) (test No organisms seen pctd=01946) POCT-GLUCOSE [id number] 12:37:00 Test Item Value Reference Range Comments POC-GLUCOSE METER (BEAKER) 154 mg/dL 70-110 TESTED AT [address] (test maqf=4444) [place] [id number] POCT-GLUCOSE [id number] 09:12:00 Test Item Value Reference Range Comments POC-GLUCOSE METER (BEAKER) 76 mg/dL 70-110 TESTED AT [address] (test lyyd=0162) [facility] [address] COMPREHENSIVE METABOLIC [id number] 08:19:00 Test Item Value Reference Range Comments TOTAL PROTEIN (BEAKER) 4.9 gm/dL 6.0-8.3 (test sswr=578) ALBUMIN (BEAKER) (test 3.0 g/dL 3.5-5.0 pupj=9843) ALKALINE PHOSPHATASE 88 U/L 40-150 (BEAKER) (test rbil=437) BILIRUBIN TOTAL (BEAKER) 1.9 mg/dL 0.2-1.2 (test hgfm=305) SODIUM (BEAKER) (test 141 meq/L 136-145 oghj=926) POTASSIUM (BEAKER) (test 3.5 meq/L 3.5-5.1 dtgv=227) CHLORIDE (BEAKER) (test 100 meq/L 98-107 agee=717) CO2 (BEAKER) (test 34 meq/L 22-29 cwpo=546) BLOOD UREA NITROGEN 18 mg/dL 7-21 (BEAKER) (test avym=680) CREATININE (BEAKER) (test 1.50 mg/dL 0.57-1.25 oskx=156) GLUCOSE RANDOM (BEAKER) 92 mg/dL 70-105 (test hjzq=163) CALCIUM (BEAKER) (test 8.5 mg/dL 8.4-10.2 gryp=100) AST (SGOT) (BEAKER) (test 27 U/L 5-34 jhcs=032) ALT (SGPT) (BEAKER) (test 10 U/L 6-55 ocxo=895) EGFR (BEAKER) (test 35 mL/min/1.73 sq m ESTIMATED GFR IS NOT xkmr=7723) ACCURATE CREATININE CLEARANCE IN PREDICTING GLOMERULAR FILTRATION RATE. ESTIMATED GFR IS NOT APPLICABLE FOR DIALYSIS PATIENTS. Specimen slightly [id number] 08:18:00 Test Item Value Reference Range Comments PHOSPHORUS (BEAKER) (test thwh=975) 2.8 mg/dL 2.3-4.7 [id number] 08:18:00 Test Item Value Reference Range Comments MAGNESIUM (BEAKER) (test wsob=611) 2.0 mg/dL 1.6-2.6 CBC W/PLT COUNT & AUTO [id number] 05:59:00 Test Item Value Reference Range Comments WHITE BLOOD CELL COUNT (BEAKER) (test ldnk=417) 5.3 K/ L 3.5-10.5 RED BLOOD CELL COUNT (BEAKER) (test qvwf=602) 2.79 M/ L 3.93-5.22 HEMOGLOBIN (BEAKER) (test xexg=003) 7.7 GM/DL 11.2-15.7 HEMATOCRIT (BEAKER) (test bvyv=146) 24.8 % 34.1-44.9 MEAN CORPUSCULAR VOLUME (BEAKER) (test ielv=239) 88.9 fL 79.4-94.8 MEAN CORPUSCULAR HEMOGLOBIN (BEAKER) (test 27.6 pg 25.6-32.2 zlau=399) MEAN CORPUSCULAR HEMOGLOBIN CONC (BEAKER) (test 31.0 GM/DL 32.2-35.5 lswr=060) RED CELL DISTRIBUTION WIDTH (BEAKER) (test 17.6 % 11.7-14.4 oesh=383) PLATELET COUNT (BEAKER) (test uxzw=028) 146 K/CU MM 150-450 MEAN PLATELET VOLUME (BEAKER) (test ufum=076) 9.6 fL 9.4-12.3 NUCLEATED RED BLOOD CELLS (BEAKER) (test 0 /100 WBC 0-0 vdgu=975) NEUTROPHILS RELATIVE PERCENT (BEAKER) (test 46 % spdi=293) LYMPHOCYTES RELATIVE PERCENT (BEAKER) (test 31 % vhsn=050) MONOCYTES RELATIVE PERCENT (BEAKER) (test 11 % omsk=214) EOSINOPHILS RELATIVE PERCENT (BEAKER) (test 10 % bhbx=105) BASOPHILS RELATIVE PERCENT (BEAKER) (test 2 % omri=344) NEUTROPHILS ABSOLUTE COUNT (BEAKER) (test 2.46 K/ L 1.56-6.13 ybqj=372) LYMPHOCYTES ABSOLUTE COUNT (BEAKER) (test 1.66 K/ L 1.18-3.74 gfvy=887) MONOCYTES ABSOLUTE COUNT (BEAKER) (test 0.57 K/ L 0.24-0.36 wves=006) EOSINOPHILS ABSOLUTE COUNT (BEAKER) (test 0.52 K/ L 0.04-0.36 kxeb=305) BASOPHILS ABSOLUTE COUNT (BEAKER) (test 0.08 K/ L 0.01-0.08 plog=287) IMMATURE GRANULOCYTES-RELATIVE PERCENT (BEAKER) 0 % 0-1 (test uaoq=4565) CALCIUM, [id number] 05:04:00 Test Item Value Reference Range Comments CALCIUM IONIZED (BEAKER) (test qdpi=960) 1.02 mmol/L 1.12-1.27 PH, BLOOD (BEAKER) (test psws=9184) 7.50 POCT-GLUCOSE [id number] 21:27:00 Test Item Value Reference Range Comments POC-GLUCOSE METER (BEAKER) 139 mg/dL 70-110 TESTED AT [address] (test ftjq=3375) [place] [address] BASIC METABOLIC [id number] 18:28:00 Test Item Value Reference Range Comments SODIUM (BEAKER) (test 142 meq/L 136-145 qqgg=535) POTASSIUM (BEAKER) (test 3.5 meq/L 3.5-5.1 jzsj=848) CHLORIDE (BEAKER) (test 99 meq/L 98-107 mozc=088) CO2 (BEAKER) (test 37 meq/L 22-29 qsap=835) BLOOD UREA NITROGEN 17 mg/dL 7-21 (BEAKER) (test rioq=446) CREATININE (BEAKER) (test 1.38 mg/dL 0.57-1.25 rbtk=462) GLUCOSE RANDOM (BEAKER) 78 mg/dL 70-105 (test wtwd=865) CALCIUM (BEAKER) (test 8.5 mg/dL 8.4-10.2 xhnc=158) EGFR (BEAKER) (test 39 mL/min/1.73 sq m ESTIMATED GFR IS NOT hvso=5792) ACCURATE CREATININE CLEARANCE IN PREDICTING GLOMERULAR FILTRATION RATE. ESTIMATED GFR IS NOT APPLICABLE FOR DIALYSIS PATIENTS. Call [id number] with resultsSpecimen slightly ictericPOCT-GLUCOSE [id number] 18:10:00 Test Item Value Reference Range Comments POC-GLUCOSE METER (BEAKER) 82 mg/dL 70-110 TESTED AT [address] (test rcyq=6503) [place] [id number] CBC W/PLT COUNT & AUTO [id number] 11:56:00 Test Item Value Reference Range Comments WHITE BLOOD CELL COUNT (BEAKER) (test fufd=455) 5.0 K/ L 3.5-10.5 RED BLOOD CELL COUNT (BEAKER) (test mjye=183) 2.82 M/ L 3.93-5.22 HEMOGLOBIN (BEAKER) (test ymhp=182) 7.9 GM/DL 11.2-15.7 HEMATOCRIT (BEAKER) (test pyxz=530) 25.0 % 34.1-44.9 MEAN CORPUSCULAR VOLUME (BEAKER) (test mzkr=271) 88.7 fL 79.4-94.8 MEAN CORPUSCULAR HEMOGLOBIN (BEAKER) (test 28.0 pg 25.6-32.2 qxyd=453) MEAN CORPUSCULAR HEMOGLOBIN CONC (BEAKER) (test 31.6 GM/DL 32.2-35.5 lytg=562) RED CELL DISTRIBUTION WIDTH (BEAKER) (test 17.6 % 11.7-14.4 kdjp=422) PLATELET COUNT (BEAKER) (test pwkw=717) 155 K/CU MM 150-450 MEAN PLATELET VOLUME (BEAKER) (test uqow=376) 9.5 fL 9.4-12.3 NUCLEATED RED BLOOD CELLS (BEAKER) (test 0 /100 WBC 0-0 trog=226) (CELLAVISION MANUAL DIFF)2019-05-28 11:56:00 Test Item Value Reference Range Comments NEUTROPHILS - REL (CELLAVISION)(BEAKER) (test 69 % cxxv=3439) LYMPHOCYTES - REL (CELLAVISION)(BEAKER) (test 21 % xgds=0059) MONOCYTES - REL (CELLAVISION)(BEAKER) (test 3 % ecee=3923) EOSINOPHILS - REL (CELLAVISION)(BEAKER) (test 5 % aeon=7063) BASOPHILS - REL (CELLAVISION)(BEAKER) (test 1 % uydi=2605) MYELOCYTES - REL (CELLAVISION)(BEAKER) (test 1 % 0-0 zzem=4055) NEUTROPHILS - ABS (CELLAVISION)(BEAKER) (test 3.45 K/ul 1.56-6.13 jrls=8545) LYMPHOCYTES - ABS (CELLAVISION)(BEAKER) (test 1.05 K/ul 1.18-3.74 ykgu=6581) MONOCYTES - ABS (CELLAVISION)(BEAKER) (test 0.15 K/uL 0.24-0.36 gyvn=5774) EOSINOPHILS - ABS (CELLAVISION)(BEAKER) (test 0.25 K/uL 0.04-0.36 qqfk=3389) BASOPHILS - ABS (CELLAVISION)(BEAKER) (test 0.05 K/uL 0.01-0.08 wzam=6463) MYELOCYTES-ABS (CELLAVISION)(BEAKER) (test 0.05 K/uL 0.00-0.00 fwtg=9413) TOTAL COUNTED (BEAKER) (test nztq=8715) 100 PLT MORPHOLOGY (BEAKER) (test swzb=385) Normal SMUDGE CELLS (BEAKER) (test lwdj=7384) Present POLYCHROMATOPHILLIC RBCS(BEAKER) (test rtkw=347) 1+ few ANISOCYTOSIS (BEAKER) (test iubd=060) 2+ moderate MICROCYTES (BEAKER) (test dmko=406) 2+ moderate POIKILOCYTES (BEAKER) (test emdl=191) 1+ few SPHEROCYTES (BEAKER) (test txot=649) 1+ few PLATELET CONCENTRATION (CELLAVISION)(BEAKER) Adequate (test kwdr=5390) Received comment: User comments: Slide comments:POCT-GLUCOSE [id number] 10: 05:00 Test Item Value Reference Range Comments POC-GLUCOSE METER (BEAKER) 82 mg/dL 70-110 TESTED AT [address] (test fvvv=1385) [facility] [address] POCT-GLUCOSE [id number] 09:07:00 Test Item Value Reference Range Comments POC-GLUCOSE METER (BEAKER) 84 mg/dL 70-110 TESTED AT [address] (test igxu=2657) [facility] [address] [id number] 06:31:00 Test Item Value Reference Range Comments PHOSPHORUS (BEAKER) (test uard=631) 2.5 mg/dL 2.3-4.7 [id number] 06:31:00 Test Item Value Reference Range Comments MAGNESIUM (BEAKER) (test ssme=460) 1.7 mg/dL 1.6-2.6 COMPREHENSIVE METABOLIC [id number] 06:31:00 Test Item Value Reference Range Comments TOTAL PROTEIN (BEAKER) 4.9 gm/dL 6.0-8.3 (test prdj=579) ALBUMIN (BEAKER) (test 3.1 g/dL 3.5-5.0 cnhm=3628) ALKALINE PHOSPHATASE 82 U/L 40-150 (BEAKER) (test xnel=689) BILIRUBIN TOTAL (BEAKER) 2.3 mg/dL 0.2-1.2 (test wfkf=710) SODIUM (BEAKER) (test 143 meq/L 136-145 obki=331) POTASSIUM (BEAKER) (test 3.5 meq/L 3.5-5.1 zwal=711) CHLORIDE (BEAKER) (test 100 meq/L 98-107 pgdd=012) CO2 (BEAKER) (test 37 meq/L 22-29 feku=341) BLOOD UREA NITROGEN 16 mg/dL 7-21 (BEAKER) (test jmjr=777) CREATININE (BEAKER) (test 1.37 mg/dL 0.57-1.25 vxsn=571) GLUCOSE RANDOM (BEAKER) 96 mg/dL 70-105 (test uhsh=375) CALCIUM (BEAKER) (test 8.6 mg/dL 8.4-10.2 axsc=505) AST (SGOT) (BEAKER) (test 30 U/L 5-34 wssb=851) ALT (SGPT) (BEAKER) (test 10 U/L 6-55 yqen=652) EGFR (BEAKER) (test 39 mL/min/1.73 sq m ESTIMATED GFR IS NOT cpzu=8203) ACCURATE CREATININE CLEARANCE IN PREDICTING GLOMERULAR FILTRATION RATE. ESTIMATED GFR IS NOT APPLICABLE FOR DIALYSIS PATIENTS. Specimen slightly ictericB-TYPE NATRIURETIC FACTOR (BNP)2019-05-28 06:19:00 Test Item Value Reference Range Comments B-TYPE NATRIURETIC PEPTIDE (BEAKER) (test 381 pg/mL 0-100 bbnl=939) CALCIUM, [id number] 05:25:00 Test Item Value Reference Range Comments CALCIUM IONIZED (BEAKER) (test vuwo=948) 1.03 mmol/L 1.12-1.27 PH, BLOOD (BEAKER) (test qtlz=1652) 7.49 POCT-GLUCOSE [id number] 22:42:00 Test Item Value Reference Range Comments POC-GLUCOSE METER (BEAKER) 174 mg/dL 70-110 TESTED AT [address] (test xjgx=5761) [facility] [address] [id number] 17:57:00 Test Item Value Reference Range Comments SODIUM (BEAKER) (test rvli=782) 140 meq/L 136-145 POTASSIUM (BEAKER) (test 3.9 meq/L 3.5-5.1 Specimen slightly hemolyzed wria=175) CHLORIDE (BEAKER) (test 99 meq/L 98-107 qxnv=994) CO2 (BEAKER) (test zcij=985) 35 meq/L 22-29 Call [id number] 17:50:00 Test Item Value Reference Range Comments POC-GLUCOSE METER (BEAKER) 151 mg/dL 70-110 TESTED AT [address] (test flhw=2224) [place] [id number] POCT-GLUCOSE [id number] 12:36:00 Test Item Value Reference Range Comments POC-GLUCOSE METER (BEAKER) 123 mg/dL 70-110 TESTED AT [address] (test oiqq=9463) [place] [id number] POCT-GLUCOSE [id number] 08:15:00 Test Item Value Reference Range Comments POC-GLUCOSE METER (BEAKER) 121 mg/dL 70-110 TESTED AT [address] (test jgwi=3979) [place] [id number] 07:00:00 Test Item Value Reference Range Comments PHOSPHORUS (BEAKER) (test otzu=875) 1.9 mg/dL 2.3-4.7 [id number] 07:00:00 Test Item Value Reference Range Comments MAGNESIUM (BEAKER) (test cvsl=500) 1.6 mg/dL 1.6-2.6 COMPREHENSIVE METABOLIC [id number] 07:00:00 Test Item Value Reference Range Comments TOTAL PROTEIN (BEAKER) 4.9 gm/dL 6.0-8.3 (test btbr=406) ALBUMIN (BEAKER) (test 3.1 g/dL 3.5-5.0 llcb=6716) ALKALINE PHOSPHATASE 75 U/L 40-150 (BEAKER) (test imak=077) BILIRUBIN TOTAL (BEAKER) 1.9 mg/dL 0.2-1.2 (test ascg=310) SODIUM (BEAKER) (test 139 meq/L 136-145 zblp=099) POTASSIUM (BEAKER) (test 4.3 meq/L 3.5-5.1 nhcs=489) CHLORIDE (BEAKER) (test 99 meq/L 98-107 vvxw=308) CO2 (BEAKER) (test 37 meq/L 22-29 zspp=090) BLOOD UREA NITROGEN 16 mg/dL 7-21 (BEAKER) (test hlad=541) CREATININE (BEAKER) (test 1.29 mg/dL 0.57-1.25 tpye=061) GLUCOSE RANDOM (BEAKER) 139 mg/dL 70-105 (test cxfq=907) CALCIUM (BEAKER) (test 8.5 mg/dL 8.4-10.2 cuxz=268) AST (SGOT) (BEAKER) (test 23 U/L 5-34 oizw=359) ALT (SGPT) (BEAKER) (test 8 U/L 6-55 awhi=861) EGFR (BEAKER) (test 42 mL/min/1.73 sq m ESTIMATED GFR IS NOT jise=2242) ACCURATE CREATININE CLEARANCE IN PREDICTING GLOMERULAR FILTRATION RATE. ESTIMATED GFR IS NOT APPLICABLE FOR DIALYSIS PATIENTS. Specimen slightly ictericCBC W/PLT COUNT & AUTO [id number] 06:20 :00 Test Item Value Reference Range Comments WHITE BLOOD CELL COUNT (BEAKER) (test viav=197) 4.7 K/ L 3.5-10.5 RED BLOOD CELL COUNT (BEAKER) (test gylo=220) 2.71 M/ L 3.93-5.22 HEMOGLOBIN (BEAKER) (test pbgk=433) 7.5 GM/DL 11.2-15.7 HEMATOCRIT (BEAKER) (test sjwp=857) 23.9 % 34.1-44.9 MEAN CORPUSCULAR VOLUME (BEAKER) (test jthq=575) 88.2 fL 79.4-94.8 MEAN CORPUSCULAR HEMOGLOBIN (BEAKER) (test 27.7 pg 25.6-32.2 eqby=608) MEAN CORPUSCULAR HEMOGLOBIN CONC (BEAKER) (test 31.4 GM/DL 32.2-35.5 nvcm=865) RED CELL DISTRIBUTION WIDTH (BEAKER) (test 17.6 % 11.7-14.4 rapi=177) PLATELET COUNT (BEAKER) (test mubg=711) 137 K/CU MM 150-450 MEAN PLATELET VOLUME (BEAKER) (test ydzi=682) 9.6 fL 9.4-12.3 NUCLEATED RED BLOOD CELLS (BEAKER) (test 0 /100 WBC 0-0 akkt=814) NEUTROPHILS RELATIVE PERCENT (BEAKER) (test 45 % arzw=883) LYMPHOCYTES RELATIVE PERCENT (BEAKER) (test 33 % vttu=973) MONOCYTES RELATIVE PERCENT (BEAKER) (test 12 % epmm=981) EOSINOPHILS RELATIVE PERCENT (BEAKER) (test 9 % kktz=943) BASOPHILS RELATIVE PERCENT (BEAKER) (test 1 % ldwf=084) NEUTROPHILS ABSOLUTE COUNT (BEAKER) (test 2.13 K/ L 1.56-6.13 meia=634) LYMPHOCYTES ABSOLUTE COUNT (BEAKER) (test 1.56 K/ L 1.18-3.74 mzdl=122) MONOCYTES ABSOLUTE COUNT (BEAKER) (test 0.57 K/ L 0.24-0.36 gyns=651) EOSINOPHILS ABSOLUTE COUNT (BEAKER) (test 0.41 K/ L 0.04-0.36 pwms=959) BASOPHILS ABSOLUTE COUNT (BEAKER) (test 0.05 K/ L 0.01-0.08 dled=639) IMMATURE GRANULOCYTES-RELATIVE PERCENT (BEAKER) 0 % 0-1 (test ffxv=0717) CALCIUM, [id number] 05:29:00 Test Item Value Reference Range Comments CALCIUM IONIZED (BEAKER) (test tzys=893) 1.02 mmol/L 1.12-1.27 PH, BLOOD (BEAKER) (test fpgv=3124) 7.53 POCT-GLUCOSE [id number] 22:13:00 Test Item Value Reference Range Comments POC-GLUCOSE METER (BEAKER) 315 mg/dL 70-110 Notified ALEXI ENNIS/TESTED AT [facility] (test gquf=3688) [address] [facility] [address] POCT-GLUCOSE [id number] 18:43:00 Test Item Value Reference Range Comments POC-GLUCOSE METER (BEAKER) 204 mg/dL 70-110 TESTED AT [address] (test mdez=6864) [facility] [address] U/S, [id number] 17:14:00Reason for exam:->ascitesFINAL REPORT Ultrasound guided paracentesis. Clinical History: Ascites. Sedation: None. Operators: This procedure was performed by SARIKA Lee under direct supervision of Akil Chung M.D. Frame Fixer: None. Estimated Blood Loss: < 1 cc. [...] was achieved with 2% lidocaine, a 5 Moldovan one-step catheter was advanced into the peritoneal cavity under ultrasound guidance. After completion of drainage, the catheter was removed. There was no evidence of complication. Impression:Successful ultrasound guided paracentesis. Signed: Akil Chung MDReport Verified Date/Time: 05/26/2019 17:14:25 Reading Location : [address] Ultrasound Reading Room U/S, [id number] 17:12:00Reason for exam:->ascitesFINAL REPORT Ultrasound guided paracentesis Clinical History: Ascites. Sedation: None. [employer] Camp Counselor: Micheline Pena PA-C Supervising Physician: Shravan Ruiz MD Frame Fixer: None. Estimated Blood Loss: < 1 mL. [...] anesthesia was achieved with lidocaine, a 5 Moldovan one-step catheter was advanced into theperitoneal cavity under ultrasound guidance. After completion of drainage, the catheter was removed.There was no evidence of complication. Impression:Successful ultrasound guided paracentesis. Signed:Shravan Ruiz Verified Date/Time: 05/26/2019 17:12:51 Reading Location: [address] Ultrasound Reading Room POCT-GLUCOSE [id number] 17:02: 00 Test Item Value Reference Range Comments POC-GLUCOSE METER (BEAKER) 204 mg/dL 70-110 TESTED AT [address] (test owvu=7207) [place] [address] POCT-GLUCOSE [id number] 13:52:00 Test Item Value Reference Range Comments POC-GLUCOSE METER (BEAKER) 185 mg/dL 70-110 TESTED AT [address] (test zfjz=7825) [place] [address] BODY FLUID CELL COUNT WITH [id number] 13:12:00 Test Item Value Reference Range Comments APPEARANCE FLUID (BEAKER) (test kcuu=234) Slightly Hazy Clear COLOR FLUID (BEAKER) (test hual=398) Yellow Colorless, Straw RBC FLUID (BEAKER) (test chjl=977) 3000 /cu mm <=1 ADJUSTED WBC FLUID (BEAKER) (test whmh=1881) 107 /cu mm <=5 LINING CELLS (BEAKER) (test hkhg=5573) 13 /cu mm <=1 NEUTROPHILS FLUID (BEAKER) (test orjn=8943) 0 % LYMPHS FLUID (BEAKER) (test czwb=043) 21 % MONO/MACROPHAGE FLUID (BEAKER) (test 78 % lczm=894) EOSINOPHILS FLUID (BEAKER) (test flqj=720) 1 % BASO FLUID (BEAKER) (test spmf=519) 0 % CONTAINER BODY FLUID (BEAKER) (test EDTA Tube ygzd=4422) POCT-GLUCOSE [id number] 08:40:00 Test Item Value Reference Range Comments POC-GLUCOSE METER (BEAKER) 113 mg/dL 70-110 TESTED AT [address] (test mglz=6000) [place] [address] [id number] 07:18:00 Test Item Value Reference Range Comments T3 TOTAL (BEAKER) (test 34 ng/dL 48-159 Performed at [employer]. Refer. hfxg=350) Range:76-181 [id number] 05:45:00 Test Item Value Reference Range Comments PHOSPHORUS (BEAKER) (test tfvn=346) 1.7 mg/dL 2.3-4.7 [id number] 05:45:00 Test Item Value Reference Range Comments MAGNESIUM (BEAKER) (test zneq=749) 1.8 mg/dL 1.6-2.6 COMPREHENSIVE METABOLIC [id number] 05:45:00 Test Item Value Reference Range Comments TOTAL PROTEIN (BEAKER) 5.1 gm/dL 6.0-8.3 (test udti=844) ALBUMIN (BEAKER) (test 3.1 g/dL 3.5-5.0 vdds=6495) ALKALINE PHOSPHATASE 88 U/L 40-150 (BEAKER) (test wntm=624) BILIRUBIN TOTAL (BEAKER) 1.6 mg/dL 0.2-1.2 (test gyfm=839) SODIUM (BEAKER) (test 140 meq/L 136-145 xldp=571) POTASSIUM (BEAKER) (test 3.8 meq/L 3.5-5.1 oeam=472) CHLORIDE (BEAKER) (test 100 meq/L 98-107 zxav=898) CO2 (BEAKER) (test 36 meq/L 22-29 bvlv=512) BLOOD UREA NITROGEN 16 mg/dL 7-21 (BEAKER) (test bhdk=430) CREATININE (BEAKER) (test 1.37 mg/dL 0.57-1.25 mdbb=532) GLUCOSE RANDOM (BEAKER) 159 mg/dL 70-105 (test tovd=180) CALCIUM (BEAKER) (test 8.4 mg/dL 8.4-10.2 eyrb=369) AST (SGOT) (BEAKER) (test 26 U/L 5-34 tjtb=639) ALT (SGPT) (BEAKER) (test 10 U/L 6-55 bjsz=262) EGFR (BEAKER) (test 39 mL/min/1.73 sq m ESTIMATED GFR IS NOT angp=9560) ACCURATE CREATININE CLEARANCE IN PREDICTING GLOMERULAR FILTRATION RATE. ESTIMATED GFR IS NOT APPLICABLE FOR DIALYSIS PATIENTS. CALCIUM, [id number] 05:11:00 Test Item Value Reference Range Comments CALCIUM IONIZED (BEAKER) (test temg=212) 0.99 mmol/L 1.12-1.27 PH, BLOOD (BEAKER) (test tuzu=6343) 7.57 CBC W/PLT COUNT & AUTO [id number] 05:04:00 Test Item Value Reference Range Comments WHITE BLOOD CELL COUNT (BEAKER) (test jddx=415) 4.6 K/ L 3.5-10.5 RED BLOOD CELL COUNT (BEAKER) (test bhco=494) 2.81 M/ L 3.93-5.22 HEMOGLOBIN (BEAKER) (test cmus=942) 7.8 GM/DL 11.2-15.7 HEMATOCRIT (BEAKER) (test zopt=531) 24.6 % 34.1-44.9 MEAN CORPUSCULAR VOLUME (BEAKER) (test qjya=213) 87.5 fL 79.4-94.8 MEAN CORPUSCULAR HEMOGLOBIN (BEAKER) (test 27.8 pg 25.6-32.2 grwf=605) MEAN CORPUSCULAR HEMOGLOBIN CONC (BEAKER) (test 31.7 GM/DL 32.2-35.5 jhnj=920) RED CELL DISTRIBUTION WIDTH (BEAKER) (test 17.2 % 11.7-14.4 xowf=160) PLATELET COUNT (BEAKER) (test mgic=590) 129 K/CU MM 150-450 MEAN PLATELET VOLUME (BEAKER) (test nodm=141) 9.0 fL 9.4-12.3 NUCLEATED RED BLOOD CELLS (BEAKER) (test 0 /100 WBC 0-0 vmrn=190) NEUTROPHILS RELATIVE PERCENT (BEAKER) (test 47 % mmrf=822) LYMPHOCYTES RELATIVE PERCENT (BEAKER) (test 29 % yzwb=070) MONOCYTES RELATIVE PERCENT (BEAKER) (test 13 % rkod=058) EOSINOPHILS RELATIVE PERCENT (BEAKER) (test 11 % hglj=872) BASOPHILS RELATIVE PERCENT (BEAKER) (test 1 % xsdd=916) NEUTROPHILS ABSOLUTE COUNT (BEAKER) (test 2.17 K/ L 1.56-6.13 wolf=120) LYMPHOCYTES ABSOLUTE COUNT (BEAKER) (test 1.32 K/ L 1.18-3.74 wvqe=632) MONOCYTES ABSOLUTE COUNT (BEAKER) (test 0.58 K/ L 0.24-0.36 lxqz=701) EOSINOPHILS ABSOLUTE COUNT (BEAKER) (test 0.49 K/ L 0.04-0.36 bnzl=325) BASOPHILS ABSOLUTE COUNT (BEAKER) (test 0.06 K/ L 0.01-0.08 mcnh=481) IMMATURE GRANULOCYTES-RELATIVE PERCENT (BEAKER) 0 % 0-1 (test gbdy=8852) POCT-GLUCOSE [id number] 23:10:00 Test Item Value Reference Range Comments POC-GLUCOSE METER (BEAKER) 239 mg/dL 70-110 TESTED AT [address] (test gwmp=4918) [place] [address] [id number] 19:02:00 Test Item Value Reference Range Comments SODIUM (BEAKER) (test kswt=210) 138 meq/L 136-145 POTASSIUM (BEAKER) (test drvj=827) 3.7 meq/L 3.5-5.1 CHLORIDE (BEAKER) (test kpbn=724) 100 meq/L 98-107 CO2 (BEAKER) (test mxeg=013) 31 meq/L 22-29 Call [id number] with resultsPOCT-GLUCOSE [id number] 16:50:00 Test Item Value Reference Range Comments POC-GLUCOSE METER (BEAKER) 203 mg/dL 70-110 TESTED AT [address] (test lskl=8461) [place] [address] POCT-GLUCOSE [id number] 12:49:00 Test Item Value Reference Range Comments POC-GLUCOSE METER (BEAKER) 219 mg/dL 70-110 TESTED AT [address] (test cgyx=3506) [place] [address] ANTI-NUCLEAR ANTIBODY (QUE)[id number] 10:03:00 Test Item Value Reference Range Comments ANTI-NUCLEAR ANTIBODY (QUE) (BEAKER) (test Negative Negative oknd=423) Test performed by IFA method.Test performed by IFA method.POCT-GLUCOSE [id number] 08:54:00 Test Item Value Reference Range Comments POC-GLUCOSE METER (BEAKER) 125 mg/dL 70-110 TESTED AT [address] (test genq=6168) [place] [address] BASIC METABOLIC [id number] 07:41:00 Test Item Value Reference Range Comments SODIUM (BEAKER) (test 141 meq/L 136-145 hfik=941) POTASSIUM (BEAKER) (test 3.0 meq/L 3.5-5.1 pxrn=641) CHLORIDE (BEAKER) (test 101 meq/L 98-107 pmwm=491) CO2 (BEAKER) (test 35 meq/L 22-29 zdyx=091) BLOOD UREA NITROGEN 16 mg/dL 7-21 (BEAKER) (test bcnm=920) CREATININE (BEAKER) (test 1.31 mg/dL 0.57-1.25 nirx=245) GLUCOSE RANDOM (BEAKER) 136 mg/dL 70-105 (test nuye=144) CALCIUM (BEAKER) (test 7.9 mg/dL 8.4-10.2 agez=000) EGFR (BEAKER) (test 41 mL/min/1.73 sq m ESTIMATED GFR IS NOT hszz=2161) ACCURATE CREATININE CLEARANCE IN PREDICTING GLOMERULAR FILTRATION RATE. ESTIMATED GFR IS NOT APPLICABLE FOR DIALYSIS PATIENTS. [id number] 07:32:00 Test Item Value Reference Range Comments PHOSPHORUS (BEAKER) (test gkhk=135) 2.0 mg/dL 2.3-4.7 [id number] 07:32:00 Test Item Value Reference Range Comments MAGNESIUM (BEAKER) (test jxht=777) 1.6 mg/dL 1.6-2.6 HEPATIC FUNCTION [id number] 07:32:00 Test Item Value Reference Range Comments TOTAL PROTEIN (BEAKER) (test npvh=368) 4.9 gm/dL 6.0-8.3 ALBUMIN (BEAKER) (test lsnc=4621) 3.0 g/dL 3.5-5.0 BILIRUBIN TOTAL (BEAKER) (test idds=364) 1.4 mg/dL 0.2-1.2 BILIRUBIN DIRECT (BEAKER) (test otgt=305) 0.7 mg/dL 0.1-0.5 ALKALINE PHOSPHATASE (BEAKER) (test xmhw=007) 86 U/L 40-150 AST (SGOT) (BEAKER) (test ryoj=536) 25 U/L 5-34 ALT (SGPT) (BEAKER) (test zaxp=433) 10 U/L 6-55 CBC W/PLT COUNT & AUTO [id number] 06:11:00 Test Item Value Reference Range Comments WHITE BLOOD CELL COUNT (BEAKER) (test ayns=246) 4.2 K/ L 3.5-10.5 RED BLOOD CELL COUNT (BEAKER) (test dslm=516) 2.68 M/ L 3.93-5.22 HEMOGLOBIN (BEAKER) (test vieg=267) 7.4 GM/DL 11.2-15.7 HEMATOCRIT (BEAKER) (test pawo=353) 23.5 % 34.1-44.9 MEAN CORPUSCULAR VOLUME (BEAKER) (test oqmy=110) 87.7 fL 79.4-94.8 MEAN CORPUSCULAR HEMOGLOBIN (BEAKER) (test 27.6 pg 25.6-32.2 lozy=467) MEAN CORPUSCULAR HEMOGLOBIN CONC (BEAKER) (test 31.5 GM/DL 32.2-35.5 lsjl=832) RED CELL DISTRIBUTION WIDTH (BEAKER) (test 18.2 % 11.7-14.4 xwea=931) PLATELET COUNT (BEAKER) (test wpvs=665) 140 K/CU MM 150-450 MEAN PLATELET VOLUME (BEAKER) (test szdj=394) 10.3 fL 9.4-12.3 NUCLEATED RED BLOOD CELLS (BEAKER) (test 0 /100 WBC 0-0 kfhz=798) NEUTROPHILS RELATIVE PERCENT (BEAKER) (test 44 % cjde=236) LYMPHOCYTES RELATIVE PERCENT (BEAKER) (test 33 % qeju=606) MONOCYTES RELATIVE PERCENT (BEAKER) (test 12 % gahm=146) EOSINOPHILS RELATIVE PERCENT (BEAKER) (test 10 % nyst=292) BASOPHILS RELATIVE PERCENT (BEAKER) (test 2 % ooha=353) NEUTROPHILS ABSOLUTE COUNT (BEAKER) (test 1.82 K/ L 1.56-6.13 wkjy=937) LYMPHOCYTES ABSOLUTE COUNT (BEAKER) (test 1.36 K/ L 1.18-3.74 hfgw=683) MONOCYTES ABSOLUTE COUNT (BEAKER) (test 0.48 K/ L 0.24-0.36 ysfg=151) EOSINOPHILS ABSOLUTE COUNT (BEAKER) (test 0.42 K/ L 0.04-0.36 myrb=479) BASOPHILS ABSOLUTE COUNT (BEAKER) (test 0.07 K/ L 0.01-0.08 jvyn=344) IMMATURE GRANULOCYTES-RELATIVE PERCENT (BEAKER) 0 % 0-1 (test zpwu=7165) PROTHROMBIN [id number] 05:31:00 Test Item Value Reference Range Comments PROTIME (BEAKER) (test jhge=485) 14.8 seconds 11.9-14.2 INR (BEAKER) (test mmca=442) 1.2 <=5.9 Effective 04/01/2019: PT Reference Range ChangeNew: 11.9-14.2 Previous: 11.7- 14.7RECOMMENDED COUMADIN/WARFARIN INR THERAPY RANGESSTANDARD DOSE: 2.0-3.0 Includes: PROPHYLAXIS for venous thrombosis, systemic embolization; TREATMENT for venous thrombosis and/or pulmonary embolus.HIGH RISK: Target INR is2.5-3.5 for patients wiht mechanical heart valves.BLOOD [id number] 02:01:00 Test Item Value Reference Range Comments CULTURE (BEAKER) (test skkj=3405) No growth in 5 days BLOOD [id number] 02:01:00 Test Item Value Reference Range Comments CULTURE (BEAKER) (test npgl=9093) No growth in 5 days POCT-GLUCOSE [id number] 23:07:00 Test Item Value Reference Range Comments POC-GLUCOSE METER (BEAKER) 217 mg/dL 70-110 TESTED AT [address] (test ukgg=8981) [place] [id number] POCT-GLUCOSE [id number] 17:54:00 Test Item Value Reference Range Comments POC-GLUCOSE METER (BEAKER) 138 mg/dL 70-110 TESTED AT [address] (test mplq=5290) [place] [id number] POCT-GLUCOSE [id number] 12:22:00 Test Item Value Reference Range Comments POC-GLUCOSE METER (BEAKER) 114 mg/dL 70-110 TESTED AT [address] (test lgdr=5817) [place] [id number] POCT-GLUCOSE [id number] 07:39:00 Test Item Value Reference Range Comments POC-GLUCOSE METER (BEAKER) 124 mg/dL 70-110 TESTED AT [address] (test whxi=8372) [place] [id number] HEPATIC FUNCTION [id number] 05:49:00 Test Item Value Reference Range Comments TOTAL PROTEIN (BEAKER) (test wwth=478) 5.1 gm/dL 6.0-8.3 ALBUMIN (BEAKER) (test xipp=1998) 2.9 g/dL 3.5-5.0 BILIRUBIN TOTAL (BEAKER) (test sdbr=341) 1.3 mg/dL 0.2-1.2 BILIRUBIN DIRECT (BEAKER) (test rroy=477) 0.7 mg/dL 0.1-0.5 ALKALINE PHOSPHATASE (BEAKER) (test sswj=244) 91 U/L 40-150 AST (SGOT) (BEAKER) (test sdhh=780) 30 U/L 5-34 ALT (SGPT) (BEAKER) (test dhwd=525) 10 U/L 6-55 BASIC METABOLIC [id number] 05:49:00 Test Item Value Reference Range Comments SODIUM (BEAKER) (test 140 meq/L 136-145 ajut=162) POTASSIUM (BEAKER) (test 3.2 meq/L 3.5-5.1 myam=811) CHLORIDE (BEAKER) (test 103 meq/L 98-107 yxrs=526) CO2 (BEAKER) (test 27 meq/L 22-29 rmbq=963) BLOOD UREA NITROGEN 17 mg/dL 7-21 (BEAKER) (test egyn=560) CREATININE (BEAKER) (test 1.30 mg/dL 0.57-1.25 rphw=241) GLUCOSE RANDOM (BEAKER) 143 mg/dL 70-105 (test vgnz=894) CALCIUM (BEAKER) (test 7.9 mg/dL 8.4-10.2 vwrf=269) EGFR (BEAKER) (test 42 mL/min/1.73 sq m ESTIMATED GFR IS NOT jlfx=1133) ACCURATE CREATININE CLEARANCE IN PREDICTING GLOMERULAR FILTRATION RATE. ESTIMATED GFR IS NOT APPLICABLE FOR DIALYSIS PATIENTS. PROTHROMBIN [id number] 05:32:00 Test Item Value Reference Range Comments PROTIME (BEAKER) (test cwgp=996) 14.7 seconds 11.9-14.2 INR (BEAKER) (test fkkr=775) 1.2 <=5.9 Effective 04/01/2019: PT Reference Range ChangeNew: 11.9-14.2 Previous: 11.7- 14.7RECOMMENDED COUMADIN/WARFARIN INR THERAPY RANGESSTANDARD DOSE: 2.0-3.0 Includes: PROPHYLAXIS for venous thrombosis, systemic embolization; TREATMENT for venous thrombosis and/or pulmonary embolus.HIGH RISK: Target INR is2.5-3.5 for patients wiht mechanical heart valves.CBC W/PLT COUNT & AUTO [id number] 05:09:00 Test Item Value Reference Range Comments WHITE BLOOD CELL COUNT (BEAKER) (test xkev=728) 4.7 K/ L 3.5-10.5 RED BLOOD CELL COUNT (BEAKER) (test jafo=666) 2.86 M/ L 3.93-5.22 HEMOGLOBIN (BEAKER) (test kqsc=062) 7.9 GM/DL 11.2-15.7 HEMATOCRIT (BEAKER) (test sgmr=188) 25.3 % 34.1-44.9 MEAN CORPUSCULAR VOLUME (BEAKER) (test flex=746) 88.5 fL 79.4-94.8 MEAN CORPUSCULAR HEMOGLOBIN (BEAKER) (test 27.6 pg 25.6-32.2 vaaw=556) MEAN CORPUSCULAR HEMOGLOBIN CONC (BEAKER) (test 31.2 GM/DL 32.2-35.5 zibv=822) RED CELL DISTRIBUTION WIDTH (BEAKER) (test 17.4 % 11.7-14.4 dols=061) PLATELET COUNT (BEAKER) (test qrxc=044) 141 K/CU MM 150-450 MEAN PLATELET VOLUME (BEAKER) (test agdo=096) 9.3 fL 9.4-12.3 NUCLEATED RED BLOOD CELLS (BEAKER) (test 0 /100 WBC 0-0 lnmh=865) NEUTROPHILS RELATIVE PERCENT (BEAKER) (test 50 % hadb=823) LYMPHOCYTES RELATIVE PERCENT (BEAKER) (test 28 % kjlh=688) MONOCYTES RELATIVE PERCENT (BEAKER) (test 11 % gets=497) EOSINOPHILS RELATIVE PERCENT (BEAKER) (test 10 % mqbp=659) BASOPHILS RELATIVE PERCENT (BEAKER) (test 1 % yuae=858) NEUTROPHILS ABSOLUTE COUNT (BEAKER) (test 2.33 K/ L 1.56-6.13 psgx=557) LYMPHOCYTES ABSOLUTE COUNT (BEAKER) (test 1.31 K/ L 1.18-3.74 hboa=411) MONOCYTES ABSOLUTE COUNT (BEAKER) (test 0.51 K/ L 0.24-0.36 tzsr=628) EOSINOPHILS ABSOLUTE COUNT (BEAKER) (test 0.46 K/ L 0.04-0.36 ttoy=709) BASOPHILS ABSOLUTE COUNT (BEAKER) (test 0.06 K/ L 0.01-0.08 nwcu=255) IMMATURE GRANULOCYTES-RELATIVE PERCENT (BEAKER) 0 % 0-1 (test hrce=6533) BLOOD GAS, [id number] 22:21:00 Test Item Value Reference Range Comments PH ARTERIAL (BEAKER) (test dqdd=105) 7.49 7.35-7.45 PCO2 ARTERIAL (BEAKER) (test cxpo=033) 43 mmHg 35-45 PO2 ARTERIAL (BEAKER) (test gwep=976) 56 mmHg 80-90 O2 SATURATION ARTERIAL (BEAKER) (test ttzs=982) 92.5 % 96.0-97.0 HCO3 ARTERIAL (BEAKER) (test thrk=859) 32 mmol/L 21-29 BASE EXCESS ARTERIAL (BEAKER) (test yndn=484) 7.9 mmol/L -2.0-3.0 PATIENT TEMPERATURE (BEAKER) (test zdzo=3338) 35.8 C FIO2 (BEAKER) (test jdmk=3358) 21.0 % POCT-GLUCOSE [id number] 21:14:00 Test Item Value Reference Range Comments POC-GLUCOSE METER (BEAKER) 259 mg/dL 70-110 TESTED AT [address] (test luil=3691) [place] [address] BODY FLUID CULTURE + GRAM [id number] 18:00:00 Test Item Value Reference Range Comments CULTURE (BEAKER) (test mrvi=6169) No growth GRAM STAIN RESULT (BEAKER) (test No WBCs zlml=5570) GRAM STAIN RESULT (BEAKER) (test No organisms seen mbpz=21438) POCT-GLUCOSE [id number] 17:23:00 Test Item Value Reference Range Comments POC-GLUCOSE METER (BEAKER) 201 mg/dL 70-110 TESTED AT [address] (test mvwa=0325) [place] [address] RAD, MANDIBLE, MIN 4 [id number] 15:00:00Reason for exam:->liver transplant evalShould this be [...] Martinez MDReport Verified Date/Time: 05/23/201915:00:10 Reading Location: [address] Transitional Reading Room CRYPTOCOCCAL [id number] 14:59:00 Test Item Value Reference Range Comments CRYPTOCOCCAL ANTIGEN, SERUM (BEAKER) (test Negative Negative, Interference vhnu=3449) [id number] 14:45:00 Test Item Value Reference Range Comments RPR SCREEN (BEAKER) (test bwbf=348) Nonreactive Nonreactive CYTOMEGALOVIRUS ANTIBODY, [id number] 13:48:00 Test Item Value Reference Range Comments CYTOMEGALOVIRUS, IGG (BEAKER) (test luqr=2084) Positive Negative, Equivocal CMV IgG Result Interpretation: </=0.8 Al Negative 0.9-1.0 Al Equivocal &gt ;/=1.1 Al PositiveCYTOMEGALOVIRUS ANTIBODY, [id number] 13:48:00 Test Item Value Reference Range Comments CYTOMEGALOVIRUS IGM ANTIBODY (BEAKER) (test Negative Negative, Equivocal wjmb=9479) CMV IgM Result Interpretation: </=0.8 Al Negative 0.9-1.0 Al Equivocal >/=1.1 Al PositiveEBV ANTIBODY, [id number] 13:48:00 Test Item Value Reference Range Comments BERTRAND BOLES VIRAL CAPSID ANTIGEN IGG (BEAKER) Positive Negative, Equivocal (test okwz=0664) Bertrand Boles Viral Capsid Antigen IgG Result Interpretation: </=0.8 Al Negative 0.9-1.0 Al Equivocal >/=1.1 Al PositiveEBV ANTIBODY, [id number] 13:48:00 Test Item Value Reference Range Comments BERTRAND BOLES VIRAL CAPSID ANTIGEN IGM (BEAKER) Negative Negative, Equivocal (test atea=2122) Bertrand Boles Viral Capsid Antigen IgM Result Interpretation: </=0.8 Al Negative 0.9-1.0 Al Equivocal >/=1.1 Al PositiveVARICELLA ZOSTER ANTIBODY , [id number] 13:48:00 Test Item Value Reference Range Comments VARICELLA ZOSTER IGG (AL) (BEAKER) (test wwvp=5907) 0.9 VARICELLA ZOSTER RESULT INTERPRETATIONS: <=0.8 Al Nonreactive: Presumed non-immune to VZV 0.9-1.0 Al Equivocal >=1.1 Al Reactive: Presumed immune to VZVRUBELLA ANTIBODY, [id number] 13:48:00 Test Item Value Reference Range Comments RUBELLA IGG QUANTITATION (AKER) (test saay=855) 12.0 IU/mL <8.0 Rubella IgG Result Interpretation: </=7.0 IU/mL Negative - Presumed non- immune 8.0 - 9.9 IU/mL Equivocal >=10.0 IU/mL Positive - Presumed immunePOCT-GLUCOSE [id number] 11:41:00 Test Item Value Reference Range Comments POC-GLUCOSE METER (BEAKER) 162 mg/dL 70-110 TESTED AT [address] (test mshh=0340) [facility] [address] POCT-GLUCOSE [id number] 10:06:00 Test Item Value Reference Range Comments POC-GLUCOSE METER (BEAKER) 95 mg/dL 70-110 TESTED AT [address] (test egfd=0910) [place] [id number] IRON, TIBC, % SAT. (WITHOUT FERRITIN)2019-05-23 07:32:00 Test Item Value Reference Range Comments IRON (BEAKER) (test zwfq=197) 30.0 ug/dL 40.0-160.0 TOTAL IRON BINDING CAPACITY (BEAKER) (test 143 ug/dL 250-450 vvon=028) IRON % SATURATION (2) (BEAKER) (test huvt=8192) 21 % 20-55 [id number] 06:29:00 Test Item Value Reference Range Comments PHOSPHORUS (BEAKER) (test rptf=656) 1.9 mg/dL 2.3-4.7 [id number] 06:29:00 Test Item Value Reference Range Comments MAGNESIUM (BEAKER) (test bnik=577) 1.5 mg/dL 1.6-2.6 HEPATIC FUNCTION [id number] 06:29:00 Test Item Value Reference Range Comments TOTAL PROTEIN (BEAKER) (test lgqv=896) 5.2 gm/dL 6.0-8.3 ALBUMIN (BEAKER) (test hdwj=2810) 3.0 g/dL 3.5-5.0 BILIRUBIN TOTAL (BEAKER) (test qocc=839) 1.6 mg/dL 0.2-1.2 BILIRUBIN DIRECT (BEAKER) (test bgnj=591) 0.8 mg/dL 0.1-0.5 ALKALINE PHOSPHATASE (BEAKER) (test tnya=099) 87 U/L 40-150 AST (SGOT) (BEAKER) (test pixc=779) 24 U/L 5-34 ALT (SGPT) (BEAKER) (test lqap=481) 11 U/L 6-55 COMPREHENSIVE METABOLIC [id number] 06:29:00 Test Item Value Reference Range Comments TOTAL PROTEIN (BEAKER) 5.2 gm/dL 6.0-8.3 (test dqbf=152) ALBUMIN (BEAKER) (test 3.0 g/dL 3.5-5.0 jwld=0356) ALKALINE PHOSPHATASE 87 U/L 40-150 (BEAKER) (test cdnh=624) BILIRUBIN TOTAL (BEAKER) 1.6 mg/dL 0.2-1.2 (test wfwl=174) SODIUM (BEAKER) (test 139 meq/L 136-145 fcof=444) POTASSIUM (BEAKER) (test 3.3 meq/L 3.5-5.1 zhdz=317) CHLORIDE (BEAKER) (test 104 meq/L 98-107 awum=044) CO2 (BEAKER) (test 30 meq/L 22-29 djjx=866) BLOOD UREA NITROGEN 18 mg/dL 7-21 (BEAKER) (test hgvg=648) CREATININE (BEAKER) (test 1.41 mg/dL 0.57-1.25 mzcu=219) GLUCOSE RANDOM (BEAKER) 102 mg/dL 70-105 (test kmzq=071) CALCIUM (BEAKER) (test 8.1 mg/dL 8.4-10.2 zzjp=940) AST (SGOT) (BEAKER) (test 24 U/L 5-34 wzks=756) ALT (SGPT) (BEAKER) (test 11 U/L 6-55 kmvq=715) EGFR (BEAKER) (test 38 mL/min/1.73 sq m ESTIMATED GFR IS NOT rwqh=4867) ACCURATE CREATININE CLEARANCE IN PREDICTING GLOMERULAR FILTRATION RATE. ESTIMATED GFR IS NOT APPLICABLE FOR DIALYSIS PATIENTS. CBC W/PLT COUNT & AUTO [id number] 05:46:00 Test Item Value Reference Range Comments WHITE BLOOD CELL COUNT (BEAKER) (test ilov=997) 4.9 K/ L 3.5-10.5 RED BLOOD CELL COUNT (BEAKER) (test gmse=163) 2.83 M/ L 3.93-5.22 HEMOGLOBIN (BEAKER) (test ibvn=092) 8.0 GM/DL 11.2-15.7 HEMATOCRIT (BEAKER) (test ujbc=660) 24.4 % 34.1-44.9 MEAN CORPUSCULAR VOLUME (BEAKER) (test jqdg=672) 86.2 fL 79.4-94.8 MEAN CORPUSCULAR HEMOGLOBIN (BEAKER) (test 28.3 pg 25.6-32.2 rdpl=635) MEAN CORPUSCULAR HEMOGLOBIN CONC (BEAKER) (test 32.8 GM/DL 32.2-35.5 dlxb=315) RED CELL DISTRIBUTION WIDTH (BEAKER) (test 17.6 % 11.7-14.4 wzek=599) PLATELET COUNT (BEAKER) (test pyxe=237) 147 K/CU MM 150-450 MEAN PLATELET VOLUME (BEAKER) (test vxze=516) 9.1 fL 9.4-12.3 NUCLEATED RED BLOOD CELLS (BEAKER) (test 0 /100 WBC 0-0 vtzu=586) NEUTROPHILS RELATIVE PERCENT (BEAKER) (test 51 % aoit=124) LYMPHOCYTES RELATIVE PERCENT (BEAKER) (test 27 % hctf=884) MONOCYTES RELATIVE PERCENT (BEAKER) (test 11 % eymn=155) EOSINOPHILS RELATIVE PERCENT (BEAKER) (test 10 % nzdv=046) BASOPHILS RELATIVE PERCENT (BEAKER) (test 1 % tbyy=539) NEUTROPHILS ABSOLUTE COUNT (BEAKER) (test 2.51 K/ L 1.56-6.13 ncyn=172) LYMPHOCYTES ABSOLUTE COUNT (BEAKER) (test 1.30 K/ L 1.18-3.74 uatm=124) MONOCYTES ABSOLUTE COUNT (BEAKER) (test 0.54 K/ L 0.24-0.36 tdth=602) EOSINOPHILS ABSOLUTE COUNT (BEAKER) (test 0.48 K/ L 0.04-0.36 djxk=838) BASOPHILS ABSOLUTE COUNT (BEAKER) (test 0.06 K/ L 0.01-0.08 vdrp=990) IMMATURE GRANULOCYTES-RELATIVE PERCENT (BEAKER) 0 % 0-1 (test zokq=3953) PROTHROMBIN [id number] 05:46:00 Test Item Value Reference Range Comments PROTIME (BEAKER) (test tqdn=507) 14.9 seconds 11.9-14.2 INR (BEAKER) (test afzv=539) 1.2 <=5.9 Effective 04/01/2019: PT Reference Range ChangeNew: 11.9-14.2 Previous: 11.7- 14.7RECOMMENDED COUMADIN/WARFARIN INR THERAPY RANGESSTANDARD DOSE: 2.0-3.0 Includes: PROPHYLAXIS for venous thrombosis, systemic embolization; TREATMENT for venous thrombosis and/or pulmonary embolus.HIGH RISK: Target INR is2.5-3.5 for patients wiht mechanical heart valves.CALCIUM, [id number] 05:44:00 Test Item Value Reference Range Comments CALCIUM IONIZED (BEAKER) (test fgyh=074) 0.99 mmol/L 1.12-1.27 PH, BLOOD (BEAKER) (test exzl=3233) 7.48 HEMOGLOBIN [id number] 22:07:00 Test Item Value Reference Range Comments HEMOGLOBIN A1C (BEAKER) (test jvnu=109) 8.1 % 4.3-6.1 POCT-GLUCOSE [id number] 21:38:00 Test Item Value Reference Range Comments POC-GLUCOSE METER (BEAKER) 213 mg/dL 70-110 TESTED AT [address] (test jjyt=0996) [facility] [address] POCT-GLUCOSE [id number] 18:07:00 Test Item Value Reference Range Comments POC-GLUCOSE METER (BEAKER) 212 mg/dL 70-110 TESTED AT [address] (test hkic=8955) [facility] [address] ALPHA FETOPROTEIN (AFP), TUMOR [id number] 17:50:00 Test Item Value Reference Range Comments ALPHA-FETOPROTEIN (BEAKER) (test yggp=7773) < ng/mL <10.0 HEPATITIS C [id number] 17:49:00 Test Item Value Reference Range Comments HEPATITIS C ANTIBODY (BEAKER) (test rins=880) Nonreactive Nonreactive VITAMIN D, [id number] 15:10:00 Test Item Value Reference Range Comments VITAMIN D 25-OH (BEAKER) (test bcoo=4454) < ng/mL 6.6-49.9 Effective 08/14/2017: Reference Range ChangeNew: 6.6-49.9 ng/mL Previous: 13.0 -47.8 ng/mLRecommended Vitamin D Target Range: 30.0-40.0 ng/mLHEPATITIS B SURFACE [id number] 15:10:00 Test Item Value Reference Range Comments HEPATITIS B SURFACE ANTIBODY (BEAKER) (test < mIU/mL <8.0 yaav=375) CARCINOEMBRYONIC ANTIGEN (CEA)2019-05-22 15:10:00 Test Item Value Reference Range Comments CARCINOEMBRYONIC ANTIGEN (BEAKER) (test jgvb=529) < ng/mL 0.0-5.0 HEPATITIS B CORE ANTIBODY, [id number] 15:08:00 Test Item Value Reference Range Comments HEPATITIS B CORE IGM ANTIBODY (BEAKER) (test Nonreactive Nonreactive iimr=977) HEPATITIS A ANTIBODY, [id number] 15:08:00 Test Item Value Reference Range Comments HEPATITIS A IGM ANTIBODY (BEAKER) (test Nonreactive Nonreactive hbxa=296) HEPATITIS A ANTIBODY, [id number] 15:08:00 Test Item Value Reference Range Comments HEPATITIS A IGG ANTIBODY (BEAKER) (test Nonreactive Nonreactive kglq=0833) HEPATITIS B SURFACE [id number] 15:05:00 Test Item Value Reference Range Comments HEPATITIS B SURFACE ANTIGEN (2) (BEAKER) (test Nonreactive Nonreactive ezac=0813) HEPATITIS B CORE ANTIBODY, [id number] 15:05:00 Test Item Value Reference Range Comments HEPATITIS B CORE TOTAL ANTIBODY (BEAKER) (test Nonreactive Nonreactive jfwl=294) HIV-1 ANTIGEN WITH HIV-1/2 [id number] 15:05:00 Test Item Value Reference Range Comments HIV-1 ANTIGEN WITH HIV 1\\T\\2 ANTIBODY (2) Nonreactive Nonreactive (BEAKER) (test ceko=7489) URIC [id number] 14:46:00 Test Item Value Reference Range Comments URIC ACID (BEAKER) (test tidl=774) 5.7 mg/dL 2.6-7.2 LIPID [id number] 14:46:00 Test Item Value Reference Range Comments TRIGLYCERIDES (BEAKER) (test gzvq=957) 71 mg/dL CHOLESTEROL (BEAKER) (test zpue=458) 72 mg/dL HDL CHOLESTEROL (BEAKER) (test sbrr=168) 20 mg/dL LDL CHOLESTEROL CALCULATED (BEAKER) (test jdxr=710) 38 mg/dL Triglyceride Reference Range: Low Risk <150 Borderline 150- 199 High Risk 200-499 Very High Risk >=500Cholesterol Reference Range: Low Risk <200 Borderline 200-239 High Risk > 240HDL Cholesterol Reference Range: Low Risk >=60 High Risk <40LDL Cholesterol Reference Range: Optimal <100 Near Optimal 100-129 Borderline 130-159 High 160-189 Very High >=190BILIRUBIN, [id number] 14:46:00 Test Item Value Reference Range Comments BILIRUBIN DIRECT (BEAKER) (test yova=130) 0.8 mg/dL 0.1-0.5 GAMMA GLUTAMYL TRANSFERASE (GGT)2019-05-22 14:46:00 Test Item Value Reference Range Comments GAMMA GLUTAMYL TRANSFERASE (BEAKER) (test pvgl=716) 10 U/L 9-64 [id number] 14:45:00 Test Item Value Reference Range Comments ETHANOL (BEAKER) (test jgxk=318) < mg/dL <=10 [id number] 14:44:00 Test Item Value Reference Range Comments TRANSFERRIN (BEAKER) (test qooy=430) 109 mg/dL 174-382 IRON, TIBC, % SAT. (WITHOUT FERRITIN)2019-05-22 14:44:00 Test Item Value Reference Range Comments IRON (BEAKER) (test rgxq=635) 40.0 ug/dL 40.0-160.0 TOTAL IRON BINDING CAPACITY (BEAKER) (test 136 ug/dL 250-450 zitw=690) IRON % SATURATION (2) (BEAKER) (test egmk=3286) 29 % 20-55 [id number] 14:34:00 Test Item Value Reference Range Comments PARTIAL THROMBOPLASTIN TIME (DAKOTAH) (test 35.7 seconds 22.5-36.0 fnfp=727) [id number] 14:33:00 Test Item Value Reference Range Comments FIBRINOGEN LEVEL (DAKOTAH) (test encb=275) 282 mg/dl 225-434 U/S, ABDOMINAL, WITH [id number] 14:09:00Reason for exam:->TIPS evaluationFINAL REPORT Ultrasound of [...] MDReport Verified Date/Time: 05/22/2019 14:09:52 Reading Location: [address] Radiology Reading Room Electronically signed by: MISSY MOMIN M.D. on 2018 02:09 PMPOCT-GLUCOSE [id number] 12:31:00 Test Item Value Reference Range Comments POC-GLUCOSE METER (BEAKER) 252 mg/dL 70-[address] [facility] [address] [facility] (test qdgs=1828) [facility] [address] COMPREHENSIVE METABOLIC [id number] 08:22:00 Test Item Value Reference Range Comments TOTAL PROTEIN (BEAKER) 4.8 gm/dL 6.0-8.3 (test ppzs=055) ALBUMIN (BEAKER) (test 3.0 g/dL 3.5-5.0 rjgr=1486) ALKALINE PHOSPHATASE 77 U/L 40-150 (BEAKER) (test wjuc=125) BILIRUBIN TOTAL (BEAKER) 1.6 mg/dL 0.2-1.2 (test efxu=183) SODIUM (BEAKER) (test 141 meq/L 136-145 admu=046) POTASSIUM (BEAKER) (test 3.1 meq/L 3.5-5.1 vkze=844) CHLORIDE (BEAKER) (test 105 meq/L 98-107 prwb=304) CO2 (BEAKER) (test 31 meq/L 22-29 qtoy=908) BLOOD UREA NITROGEN 18 mg/dL 7-21 (BEAKER) (test fcoc=065) CREATININE (BEAKER) (test 1.50 mg/dL 0.57-1.25 uwpk=398) GLUCOSE RANDOM (BEAKER) 145 mg/dL 70-105 (test vxfg=401) CALCIUM (BEAKER) (test 7.9 mg/dL 8.4-10.2 ovcs=584) AST (SGOT) (BEAKER) (test 23 U/L 5-34 xorx=378) ALT (SGPT) (BEAKER) (test 7 U/L 6-55 pxlw=191) EGFR (BEAKER) (test 35 mL/min/1.73 sq m ESTIMATED GFR IS NOT iffw=9207) ACCURATE CREATININE CLEARANCE IN PREDICTING GLOMERULAR FILTRATION RATE. ESTIMATED GFR IS NOT APPLICABLE FOR DIALYSIS PATIENTS. [id number] 08:19:00 Test Item Value Reference Range Comments PHOSPHORUS (BEAKER) (test iujh=148) 2.2 mg/dL 2.3-4.7 [id number] 08:19:00 Test Item Value Reference Range Comments MAGNESIUM (BEAKER) (test xkny=705) 1.5 mg/dL 1.6-2.6 HEPATIC FUNCTION [id number] 08:19:00 Test Item Value Reference Range Comments TOTAL PROTEIN (BEAKER) (test gsck=994) 4.8 gm/dL 6.0-8.3 ALBUMIN (BEAKER) (test zpsa=0250) 3.0 g/dL 3.5-5.0 BILIRUBIN TOTAL (BEAKER) (test jcgh=374) 1.6 mg/dL 0.2-1.2 BILIRUBIN DIRECT (BEAKER) (test grmy=423) 0.7 mg/dL 0.1-0.5 ALKALINE PHOSPHATASE (BEAKER) (test ekea=435) 77 U/L 40-150 AST (SGOT) (BEAKER) (test qpdv=382) 23 U/L 5-34 ALT (SGPT) (BEAKER) (test olzj=342) 7 U/L 6-55 POCT-GLUCOSE [id number] 08:08:00 Test Item Value Reference Range Comments POC-GLUCOSE METER (BEAKER) 154 mg/dL 70-[address] [facility] [address] [place] [address] (test pojo=5450) [facility] [address] B-TYPE NATRIURETIC FACTOR (BNP)2019-05-22 06:18:00 Test Item Value Reference Range Comments B-TYPE NATRIURETIC PEPTIDE (BEAKER) (test 411 pg/mL 0-100 ayhb=101) PROTHROMBIN [id number] 06:00:00 Test Item Value Reference Range Comments PROTIME (BEAKER) (test ueat=040) 14.9 seconds 11.9-14.2 INR (BEAKER) (test ccnu=457) 1.2 <=5.9 Effective 04/01/2019: PT Reference Range ChangeNew: 11.9-14.2 Previous: 11.7- 14.7RECOMMENDED COUMADIN/WARFARIN INR THERAPY RANGESSTANDARD DOSE: 2.0-3.0 Includes: PROPHYLAXIS for venous thrombosis, systemic embolization; TREATMENT for venous thrombosis and/or pulmonary embolus.HIGH RISK: Target INR is2.5-3.5 for patients wiht mechanical heart valves.CALCIUM, [id number] 05:48:00 Test Item Value Reference Range Comments CALCIUM IONIZED (BEAKER) (test hmwc=754) 1.04 mmol/L 1.12-1.27 PH, BLOOD (BEAKER) (test cnrz=7895) 7.40 CBC W/PLT COUNT & AUTO [id number] 05:45:00 Test Item Value Reference Range Comments WHITE BLOOD CELL COUNT (BEAKER) (test dmyx=223) 4.1 K/ L 3.5-10.5 RED BLOOD CELL COUNT (BEAKER) (test agll=796) 2.71 M/ L 3.93-5.22 HEMOGLOBIN (BEAKER) (test avxm=962) 7.4 GM/DL 11.2-15.7 HEMATOCRIT (BEAKER) (test gtlo=737) 23.6 % 34.1-44.9 MEAN CORPUSCULAR VOLUME (BEAKER) (test mubm=525) 87.1 fL 79.4-94.8 MEAN CORPUSCULAR HEMOGLOBIN (BEAKER) (test 27.3 pg 25.6-32.2 ufje=884) MEAN CORPUSCULAR HEMOGLOBIN CONC (BEAKER) (test 31.4 GM/DL 32.2-35.5 suje=099) RED CELL DISTRIBUTION WIDTH (BEAKER) (test 17.2 % 11.7-14.4 pdhf=617) PLATELET COUNT (BEAKER) (test fijq=910) 126 K/CU MM 150-450 MEAN PLATELET VOLUME (BEAKER) (test cnuo=919) 9.2 fL 9.4-12.3 NUCLEATED RED BLOOD CELLS (BEAKER) (test 0 /100 WBC 0-0 reoj=974) NEUTROPHILS RELATIVE PERCENT (BEAKER) (test 49 % dylt=069) LYMPHOCYTES RELATIVE PERCENT (BEAKER) (test 29 % qygi=246) MONOCYTES RELATIVE PERCENT (BEAKER) (test 12 % gwwz=820) EOSINOPHILS RELATIVE PERCENT (BEAKER) (test 8 % niuj=379) BASOPHILS RELATIVE PERCENT (BEAKER) (test 1 % qdsq=433) NEUTROPHILS ABSOLUTE COUNT (BEAKER) (test 2.03 K/ L 1.56-6.13 rgeq=978) LYMPHOCYTES ABSOLUTE COUNT (BEAKER) (test 1.21 K/ L 1.18-3.74 nngw=915) MONOCYTES ABSOLUTE COUNT (BEAKER) (test 0.51 K/ L 0.24-0.36 glai=929) EOSINOPHILS ABSOLUTE COUNT (BEAKER) (test 0.34 K/ L 0.04-0.36 nipv=816) BASOPHILS ABSOLUTE COUNT (BEAKER) (test 0.04 K/ L 0.01-0.08 wvmm=060) IMMATURE GRANULOCYTES-RELATIVE PERCENT (BEAKER) 0 % 0-1 (test zjuz=3023) POCT-GLUCOSE [id number] 21:52:00 Test Item Value Reference Range Comments POC-GLUCOSE METER (BEAKER) 241 mg/dL 70-110 TESTED AT [address] (test midg=9516) [place] [address] POCT-GLUCOSE [id number] 17:36:00 Test Item Value Reference Range Comments POC-GLUCOSE METER (BEAKER) 291 mg/dL 70-110 TESTED AT [address] (test dyed=1726) [place] [id number] BODY FLUID CELL COUNT WITH [id number] 13:52:00 Test Item Value Reference Range Comments APPEARANCE FLUID (BEAKER) (test oxfe=314) Clear Clear COLOR FLUID (BEAKER) (test rszn=608) Yellow Colorless, Straw RBC FLUID (BEAKER) (test hasm=912) 1815 /cu mm <=1 ADJUSTED WBC FLUID (BEAKER) (test rlet=7902) 79 /cu mm <=5 LINING CELLS (BEAKER) (test tiya=4131) 14 /cu mm <=1 NEUTROPHILS FLUID (BEAKER) (test ynov=3369) 0 % LYMPHS FLUID (BEAKER) (test cjrg=168) 25 % MONO/MACROPHAGE FLUID (BEAKER) (test ngrv=574) 74 % EOSINOPHILS FLUID (BEAKER) (test kppx=383) 1 % BASO FLUID (BEAKER) (test cqvn=835) 0 % CONTAINER BODY FLUID (BEAKER) (test jzzt=2022) EDTA Tube HEMOGLOBIN [id number] 13:47:00 Test Item Value Reference Range Comments HEMOGLOBIN A1C (BEAKER) (test voip=292) 8.4 % 4.3-6.1 POCT-GLUCOSE [id number] 11:56:00 Test Item Value Reference Range Comments POC-GLUCOSE METER (BEAKER) 223 mg/dL 70-[address] [facility] [address] [facility] (test lrat=2309) [facility] [address] POCT-GLUCOSE [id number] 08:31:00 Test Item Value Reference Range Comments POC-GLUCOSE METER (BEAKER) 257 mg/dL 70-[address] [facility] [address] [facility] (test dwqt=9912) [facility] [address] T4, [id number] 08:29:00 Test Item Value Reference Range Comments FREE T4 (BEAKER) (test eyjq=333) 0.41 ng/dL 0.70-1.48 BASIC METABOLIC [id number] 08:28:00 Test Item Value Reference Range Comments SODIUM (BEAKER) (test 136 meq/L 136-145 ngmm=221) POTASSIUM (BEAKER) (test 3.4 meq/L 3.5-5.1 iale=913) CHLORIDE (BEAKER) (test 104 meq/L 98-107 ggtq=919) CO2 (BEAKER) (test 27 meq/L 22-29 dcbi=688) BLOOD UREA NITROGEN 18 mg/dL 7-21 (BEAKER) (test vgez=798) CREATININE (BEAKER) (test 1.57 mg/dL 0.57-1.25 aasm=077) GLUCOSE RANDOM (BEAKER) 235 mg/dL 70-105 (test tkik=587) CALCIUM (BEAKER) (test 7.8 mg/dL 8.4-10.2 uvbr=622) EGFR (BEAKER) (test 33 mL/min/1.73 sq m ESTIMATED GFR IS NOT yphy=4703) ACCURATE CREATININE CLEARANCE IN PREDICTING GLOMERULAR FILTRATION RATE. ESTIMATED GFR IS NOT APPLICABLE FOR DIALYSIS PATIENTS. Specimen slightly [id number] 08:14:00 Test Item Value Reference Range Comments PHOSPHORUS (BEAKER) (test zwgh=150) 2.4 mg/dL 2.3-4.7 [id number] 08:14:00 Test Item Value Reference Range Comments MAGNESIUM (BEAKER) (test ebko=388) 1.5 mg/dL 1.6-2.6 HEPATIC FUNCTION [id number] 08:14:00 Test Item Value Reference Range Comments TOTAL PROTEIN (BEAKER) (test wqhl=780) 5.1 gm/dL 6.0-8.3 ALBUMIN (BEAKER) (test mccf=1217) 2.5 g/dL 3.5-5.0 BILIRUBIN TOTAL (BEAKER) (test wvyl=923) 1.3 mg/dL 0.2-1.2 BILIRUBIN DIRECT (BEAKER) (test uwkg=481) 0.7 mg/dL 0.1-0.5 ALKALINE PHOSPHATASE (BEAKER) (test bgft=213) 107 U/L 40-150 AST (SGOT) (BEAKER) (test ujqf=845) 27 U/L 5-34 ALT (SGPT) (BEAKER) (test cupa=025) 11 U/L 6-55 Specimen slightly ictericTSH/FREE T4 IF [id number] 07:00:00 Test Item Value Reference Range Comments THYROID STIMULATING HORMONE (BEAKER) (test 59.61 uIU/mL 0.35-4.94 hptd=283) PROTHROMBIN [id number] 05:56:00 Test Item Value Reference Range Comments PROTIME (BEAKER) (test zpcp=611) 14.3 seconds 11.9-14.2 INR (BEAKER) (test miub=395) 1.2 <=5.9 Effective 04/01/2019: PT Reference Range ChangeNew: 11.9-14.2 Previous: 11.7- 14.7RECOMMENDED COUMADIN/WARFARIN INR THERAPY RANGESSTANDARD DOSE: 2.0-3.0 Includes: PROPHYLAXIS for venous thrombosis, systemic embolization; TREATMENT for venous thrombosis and/or pulmonary embolus.HIGH RISK: Target INR is2.5-3.5 for patients wiht mechanical heart valves.CALCIUM, [id number] 05:43:00 Test Item Value Reference Range Comments CALCIUM IONIZED (BEAKER) (test twow=762) 0.97 mmol/L 1.12-1.27 PH, BLOOD (BEAKER) (test euxl=7595) 7.45 CBC W/PLT COUNT & AUTO [id number] 05:21:00 Test Item Value Reference Range Comments WHITE BLOOD CELL COUNT (BEAKER) (test rnra=815) 5.5 K/ L 3.5-10.5 RED BLOOD CELL COUNT (BEAKER) (test jxmy=086) 3.06 M/ L 3.93-5.22 HEMOGLOBIN (BEAKER) (test ntlj=674) 8.3 GM/DL 11.2-15.7 HEMATOCRIT (BEAKER) (test mnsb=209) 26.3 % 34.1-44.9 MEAN CORPUSCULAR VOLUME (BEAKER) (test bhlg=088) 85.9 fL 79.4-94.8 MEAN CORPUSCULAR HEMOGLOBIN (BEAKER) (test 27.1 pg 25.6-32.2 ixro=113) MEAN CORPUSCULAR HEMOGLOBIN CONC (BEAKER) (test 31.6 GM/DL 32.2-35.5 gquw=997) RED CELL DISTRIBUTION WIDTH (BEAKER) (test 17.2 % 11.7-14.4 fpqi=782) PLATELET COUNT (BEAKER) (test rcdd=980) 154 K/CU MM 150-450 MEAN PLATELET VOLUME (BEAKER) (test luwv=604) 8.9 fL 9.4-12.3 NUCLEATED RED BLOOD CELLS (BEAKER) (test 0 /100 WBC 0-0 kvmj=738) NEUTROPHILS RELATIVE PERCENT (BEAKER) (test 61 % cmgt=560) LYMPHOCYTES RELATIVE PERCENT (BEAKER) (test 21 % jypd=277) MONOCYTES RELATIVE PERCENT (BEAKER) (test 10 % adqa=143) EOSINOPHILS RELATIVE PERCENT (BEAKER) (test 8 % bpaj=770) BASOPHILS RELATIVE PERCENT (BEAKER) (test 1 % qamx=327) NEUTROPHILS ABSOLUTE COUNT (BEAKER) (test 3.33 K/ L 1.56-6.13 pmgz=281) LYMPHOCYTES ABSOLUTE COUNT (BEAKER) (test 1.13 K/ L 1.18-3.74 sqcl=735) MONOCYTES ABSOLUTE COUNT (BEAKER) (test 0.55 K/ L 0.24-0.36 ralt=136) EOSINOPHILS ABSOLUTE COUNT (BEAKER) (test 0.42 K/ L 0.04-0.36 oupe=881) BASOPHILS ABSOLUTE COUNT (BEAKER) (test 0.06 K/ L 0.01-0.08 pukz=351) IMMATURE GRANULOCYTES-RELATIVE PERCENT (BEAKER) 0 % 0-1 (test uhuf=8010) POCT-GLUCOSE [id number] 21:18:00 Test Item Value Reference Range Comments POC-GLUCOSE METER (BEAKER) 258 mg/dL 70-110 TESTED AT [address] (test dhsg=2547) [facility] [address] POCT-GLUCOSE [id number] 17:42:00 Test Item Value Reference Range Comments POC-GLUCOSE METER (BEAKER) 232 mg/dL 70-110 TESTED AT [address] (test xyrw=9809) [facility] [address] POCT-GLUCOSE [id number] 12:51:00 Test Item Value Reference Range Comments POC-GLUCOSE METER (BEAKER) 206 mg/dL 70-110 TESTED AT [address] (test ehvi=9992) [facility] [address] POCT-GLUCOSE [id number] 07:53:00 Test Item Value Reference Range Comments POC-GLUCOSE METER (BEAKER) 219 mg/dL 70-110 TESTED AT [address] (test lhmh=2428) [facility] [address] COMPREHENSIVE METABOLIC [id number] 06:52:00 Test Item Value Reference Range Comments TOTAL PROTEIN (BEAKER) 4.9 gm/dL 6.0-8.3 (test yrnq=002) ALBUMIN (BEAKER) (test 2.3 g/dL 3.5-5.0 hauo=9903) ALKALINE PHOSPHATASE 119 U/L 40-150 (BEAKER) (test urbd=946) BILIRUBIN TOTAL (BEAKER) 1.1 mg/dL 0.2-1.2 (test hrry=505) SODIUM (BEAKER) (test 135 meq/L 136-145 rdxs=114) POTASSIUM (BEAKER) (test 4.0 meq/L 3.5-5.1 wyie=783) CHLORIDE (BEAKER) (test 105 meq/L 98-107 xfft=692) CO2 (BEAKER) (test 26 meq/L 22-29 gghn=407) BLOOD UREA NITROGEN 18 mg/dL 7-21 (BEAKER) (test cwae=823) CREATININE (BEAKER) (test 1.38 mg/dL 0.57-1.25 czvf=901) GLUCOSE RANDOM (BEAKER) 234 mg/dL 70-105 (test bkss=706) CALCIUM (BEAKER) (test 7.8 mg/dL 8.4-10.2 qddl=860) AST (SGOT) (BEAKER) (test 29 U/L 5-34 vkbf=207) ALT (SGPT) (BEAKER) (test 13 U/L 6-55 oqbk=385) EGFR (BEAKER) (test 39 mL/min/1.73 sq m ESTIMATED GFR IS NOT qsya=7592) ACCURATE CREATININE CLEARANCE IN PREDICTING GLOMERULAR FILTRATION RATE. ESTIMATED GFR IS NOT APPLICABLE FOR DIALYSIS PATIENTS. [id number] 06:47:00 Test Item Value Reference Range Comments PHOSPHORUS (BEAKER) (test pkaj=690) 2.0 mg/dL 2.3-4.7 [id number] 06:47:00 Test Item Value Reference Range Comments MAGNESIUM (BEAKER) (test qpqi=233) 1.7 mg/dL 1.6-2.6 HEPATIC FUNCTION [id number] 06:47:00 Test Item Value Reference Range Comments TOTAL PROTEIN (BEAKER) (test mmly=486) 4.9 gm/dL 6.0-8.3 ALBUMIN (BEAKER) (test wdej=6704) 2.3 g/dL 3.5-5.0 BILIRUBIN TOTAL (BEAKER) (test xhwg=468) 1.1 mg/dL 0.2-1.2 BILIRUBIN DIRECT (BEAKER) (test utjo=604) 0.6 mg/dL 0.1-0.5 ALKALINE PHOSPHATASE (BEAKER) (test zqna=640) 119 U/L 40-150 AST (SGOT) (BEAKER) (test rjnt=252) 29 U/L 5-34 ALT (SGPT) (BEAKER) (test hwhe=610) 13 U/L 6-55 CBC W/PLT COUNT & AUTO [id number] 06:32:00 Test Item Value Reference Range Comments WHITE BLOOD CELL COUNT (BEAKER) (test ywuq=158) 5.3 K/ L 3.5-10.5 RED BLOOD CELL COUNT (BEAKER) (test zfau=308) 3.05 M/ L 3.93-5.22 HEMOGLOBIN (BEAKER) (test ruyx=258) 8.3 GM/DL 11.2-15.7 HEMATOCRIT (BEAKER) (test ewhr=799) 26.7 % 34.1-44.9 MEAN CORPUSCULAR VOLUME (BEAKER) (test xuiz=654) 87.5 fL 79.4-94.8 MEAN CORPUSCULAR HEMOGLOBIN (BEAKER) (test 27.2 pg 25.6-32.2 pzhf=990) MEAN CORPUSCULAR HEMOGLOBIN CONC (BEAKER) (test 31.1 GM/DL 32.2-35.5 etyg=397) RED CELL DISTRIBUTION WIDTH (BEAKER) (test 17.4 % 11.7-14.4 rmkv=687) PLATELET COUNT (BEAKER) (test ozar=712) 161 K/CU MM 150-450 MEAN PLATELET VOLUME (BEAKER) (test eojy=495) 8.8 fL 9.4-12.3 NUCLEATED RED BLOOD CELLS (BEAKER) (test 0 /100 WBC 0-0 dsnh=908) NEUTROPHILS RELATIVE PERCENT (BEAKER) (test 52 % ulgk=558) LYMPHOCYTES RELATIVE PERCENT (BEAKER) (test 27 % yxsx=034) MONOCYTES RELATIVE PERCENT (BEAKER) (test 9 % zebd=288) EOSINOPHILS RELATIVE PERCENT (BEAKER) (test 10 % punt=417) BASOPHILS RELATIVE PERCENT (BEAKER) (test 2 % fwmo=373) NEUTROPHILS ABSOLUTE COUNT (BEAKER) (test 2.75 K/ L 1.56-6.13 svji=687) LYMPHOCYTES ABSOLUTE COUNT (BEAKER) (test 1.42 K/ L 1.18-3.74 lvjj=661) MONOCYTES ABSOLUTE COUNT (BEAKER) (test 0.48 K/ L 0.24-0.36 jopa=266) EOSINOPHILS ABSOLUTE COUNT (BEAKER) (test 0.54 K/ L 0.04-0.36 kbym=242) BASOPHILS ABSOLUTE COUNT (BEAKER) (test 0.08 K/ L 0.01-0.08 igxa=772) IMMATURE GRANULOCYTES-RELATIVE PERCENT (BEAKER) 0 % 0-1 (test eano=8716) B-TYPE NATRIURETIC FACTOR (BNP)2019-05-20 06:27:00 Test Item Value Reference Range Comments B-TYPE NATRIURETIC PEPTIDE (BEAKER) (test 274 pg/mL 0-100 tlyq=784) VANCOMYCIN LEVEL, [id number] 06:16:00 Test Item Value Reference Range Comments VANCOMYCIN TROUGH (BEAKER) (test rjps=595) 5.8 ug/mL 10.0-20.0 [id number] 06:11:00 Test Item Value Reference Range Comments D-DIMER QUANTITATIVE (BEAKER) (test xrcr=956) 3.95 MG/L FEU <0.50 Intended Use: The [...] exclusion of thrombosis is within 95-100% range.CALCIUM, [id number] 06:04:00 Test Item Value Reference Range Comments CALCIUM IONIZED (BEAKER) (test scig=094) 1.06 mmol/L 1.12-1.27 PH, BLOOD (BEAKER) (test bbrm=9480) 7.43 PROTHROMBIN [id number] 06:02:00 Test Item Value Reference Range Comments PROTIME (BEAKER) (test ckdj=141) 13.8 seconds 11.9-14.2 INR (BEAKER) (test nzql=397) 1.1 <=5.9 Effective 04/01/2019: PT Reference Range ChangeNew: 11.9-14.2 Previous: 11.7- 14.7RECOMMENDED COUMADIN/WARFARIN INR THERAPY RANGESSTANDARD DOSE: 2.0-3.0 Includes: PROPHYLAXIS for venous thrombosis, systemic embolization; TREATMENT for venous thrombosis and/or pulmonary embolus.HIGH RISK: Target INR is2.5-3.5 for patients wiht mechanical heart valves.TROPONIN [id number] 02:44:00 Test Item Value Reference Range Comments TROPONIN I (BEAKER) (test dxsw=097) 0.01 ng/mL 0.00-0.03 Troponin I (TnI) levels [...] acute neurological disease, and persistent tachyarrhythmia.PROTEIN, RANDOM [id number] 01:50:00 Test Item Value Reference Range Comments PROTEIN, URINE (BEAKER) (test gmdx=7166) 20 mg/dL 0-14 CREATININE, RANDOM [id number] 01:49:00 Test Item Value Reference Range Comments CREATININE URINE (BEAKER) (test cukk=943) 184.6 mg/dL Reference Range: No NormalsRAD, CHEST, 1 VIEW, NON [id number] 01:49: 00Reason for exam:->anasarcaShould this be performed [...] Verified Date/Time: 05/20/2019 01:49 :05 Reading Location: [address] Reading Room POCT-GLUCOSE [id number] 00:36:00 Test Item Value Reference Range Comments POC-GLUCOSE METER (BEAKER) 326 mg/dL 70-[address] [facility] [address] [place] [address] (test msxw=7737) [facility] [address] URINALYSIS W/ [id number] 00:02:00 Test Item Value Reference Range Comments COLOR (BEAKER) (test nwbn=767) Yellow CLARITY (BEAKER) (test ucix=696) Clear SPECIFIC GRAVITY UA (BEAKER) (test jpzm=011) 1.020 1.001-1.035 PH UA (BEAKER) (test dcop=940) 5.5 5.0-8.0 PROTEIN UA (BEAKER) (test rkyd=406) 20 mg/dL Negative GLUCOSE UA (BEAKER) (test daxk=763) 300 mg/dL Negative KETONES UA (BEAKER) (test pulv=447) Negative Negative BILIRUBIN UA (BEAKER) (test zmgb=457) Negative Negative BLOOD UA (BEAKER) (test irty=591) Negative Negative NITRITE UA (BEAKER) (test crpl=929) Negative Negative LEUKOCYTE ESTERASE UA (BEAKER) (test eehy=696) Small Negative UROBILINOGEN UA (BEAKER) (test tlmp=308) 2.0 mg/dL 0.2-1.0 RBC UA (BEAKER) (test fvfk=717) 2 /HPF WBC UA (BEAKER) (test ldoo=207) 2 /HPF MUCUS (BEAKER) (test tnek=0653) Rare SQUAMOUS EPITHELIAL (BEAKER) (test zdkt=920) 6 /HPF HYALINE CASTS (BEAKER) (test uqwn=312) 5 /LPF SOURCE(BEAKER) (test azov=2266) Urine, Voided T4, [id number] 22:29:00 Test Item Value Reference Range Comments FREE T4 (BEAKER) (test hmtw=133) 0.44 ng/dL 0.70-1.48 HEMOGLOBIN [id number] 22:15:00 Test Item Value Reference Range Comments HEMOGLOBIN A1C (BEAKER) (test cnkh=144) 8.6 % 4.3-6.1 TSH/FREE T4 IF [id number] 21:43:00 Test Item Value Reference Range Comments THYROID STIMULATING HORMONE (BEAKER) (test 72.01 uIU/mL 0.35-4.94 qxeq=097) B-TYPE NATRIURETIC FACTOR (BNP)2019-05-19 21:29:00 Test Item Value Reference Range Comments B-TYPE NATRIURETIC PEPTIDE (BEAKER) (test 222 pg/mL 0-100 nkjh=345) PROTHROMBIN [id number] 21:26:00 Test Item Value Reference Range Comments PROTIME (BEAKER) (test rhco=522) 13.6 seconds 11.9-14.2 INR (BEAKER) (test ldme=619) 1.1 <=5.9 Effective 04/01/2019: PT Reference Range ChangeNew: 11.9-14.2 Previous: 11.7- 14.7RECOMMENDED COUMADIN/WARFARIN INR THERAPY RANGESSTANDARD DOSE: 2.0-3.0 Includes: PROPHYLAXIS for venous thrombosis, systemic embolization; TREATMENT for venous thrombosis and/or pulmonary embolus.HIGH RISK: Target INR is2.5-3.5 for patients wiht mechanical heart valves.TROPONIN [id number] 21:26:00 Test Item Value Reference Range Comments TROPONIN I (BEAKER) (test mfdm=236) < ng/mL 0.00-0.03 Troponin I (TnI) levels [...] failure, acidosis, acute neurological disease, and persistent tachyarrhythmia.[id number] 21:18:00 Test Item Value Reference Range Comments MAGNESIUM (BEAKER) (test 1.8 mg/dL 1.6-2.6 Specimen markedly hemolyzed ngqs=208) [id number] 21:18:00 Test Item Value Reference Range Comments PHOSPHORUS (BEAKER) (test 2.1 mg/dL 2.3-4.7 Specimen markedly hemolyzed vmep=512) BASIC METABOLIC [id number] 21:18:00 Test Item Value Reference Range Comments SODIUM (BEAKER) (test 136 meq/L 136-145 fvhx=979) POTASSIUM (BEAKER) (test 4.8 meq/L 3.5-5.1 Specimen markedly easf=359) hemolyzed CHLORIDE (BEAKER) (test 103 meq/L 98-107 gqpe=093) CO2 (BEAKER) (test 29 meq/L 22-29 wpws=329) BLOOD UREA NITROGEN 17 mg/dL 7-21 (BEAKER) (test cxps=052) CREATININE (BEAKER) (test 1.33 mg/dL 0.57-1.25 Specimen markedly qcqi=384) hemolyzed GLUCOSE RANDOM (BEAKER) 248 mg/dL 70-105 (test tuac=384) CALCIUM (BEAKER) (test 8.1 mg/dL 8.4-10.2 gbeq=364) EGFR (BEAKER) (test 41 mL/min/1.73 sq m ESTIMATED GFR IS NOT bpxc=7349) ACCURATE CREATININE CLEARANCE IN PREDICTING GLOMERULAR FILTRATION RATE. ESTIMATED GFR IS NOT APPLICABLE FOR DIALYSIS PATIENTS. HEPATIC FUNCTION [id number] 21:18:00 Test Item Value Reference Range Comments TOTAL PROTEIN (BEAKER) (test 6.4 gm/dL 6.0-8.3 Specimen markedly hemolyzed rwvh=520) ALBUMIN (BEAKER) (test 2.5 g/dL 3.5-5.0 Specimen markedly hemolyzed polm=1045) BILIRUBIN TOTAL (BEAKER) (test 1.3 mg/dL 0.2-1.2 Specimen markedly hemolyzed pgms=505) BILIRUBIN DIRECT (BEAKER) (test 0.3 mg/dL 0.1-0.5 Specimen markedly hemolyzed vtsb=241) ALKALINE PHOSPHATASE (BEAKER) 143 U/L 40-150 (test tfgg=865) AST (SGOT) (BEAKER) (test 61 U/L 5-34 Specimen markedly hemolyzed vrkb=159) ALT (SGPT) (BEAKER) (test 15 U/L 6-55 Specimen markedly hemolyzed qzxc=731) CBC W/PLT COUNT & AUTO [id number] 20:58:00 Test Item Value Reference Range Comments WHITE BLOOD CELL COUNT (BEAKER) (test ckid=183) 6.0 K/ L 3.5-10.5 RED BLOOD CELL COUNT (BEAKER) (test oojv=798) 3.57 M/ L 3.93-5.22 HEMOGLOBIN (BEAKER) (test pqhs=152) 9.8 GM/DL 11.2-15.7 HEMATOCRIT (BEAKER) (test vuou=095) 30.6 % 34.1-44.9 MEAN CORPUSCULAR VOLUME (BEAKER) (test kplz=465) 85.7 fL 79.4-94.8 MEAN CORPUSCULAR HEMOGLOBIN (BEAKER) (test 27.5 pg 25.6-32.2 dfkm=751) MEAN CORPUSCULAR HEMOGLOBIN CONC (BEAKER) (test 32.0 GM/DL 32.2-35.5 ofxr=659) RED CELL DISTRIBUTION WIDTH (BEAKER) (test 17.4 % 11.7-14.4 imja=259) PLATELET COUNT (BEAKER) (test gxxm=569) 199 K/CU MM 150-450 MEAN PLATELET VOLUME (BEAKER) (test qywx=042) 9.1 fL 9.4-12.3 NUCLEATED RED BLOOD CELLS (BEAKER) (test 0 /100 WBC 0-0 wqft=526) NEUTROPHILS RELATIVE PERCENT (BEAKER) (test 53 % zdgv=425) LYMPHOCYTES RELATIVE PERCENT (BEAKER) (test 27 % kyau=282) MONOCYTES RELATIVE PERCENT (BEAKER) (test 8 % ksfb=263) EOSINOPHILS RELATIVE PERCENT (BEAKER) (test 10 % ybfy=508) BASOPHILS RELATIVE PERCENT (BEAKER) (test 1 % esfb=094) NEUTROPHILS ABSOLUTE COUNT (BEAKER) (test 3.21 K/ L 1.56-6.13 fgyv=218) LYMPHOCYTES ABSOLUTE COUNT (BEAKER) (test 1.62 K/ L 1.18-3.74 cvts=230) MONOCYTES ABSOLUTE COUNT (BEAKER) (test 0.50 K/ L 0.24-0.36 hwmj=061) EOSINOPHILS ABSOLUTE COUNT (BEAKER) (test 0.62 K/ L 0.04-0.36 mzkh=480) BASOPHILS ABSOLUTE COUNT (BEAKER) (test 0.08 K/ L 0.01-0.08 lixx=932) IMMATURE GRANULOCYTES-RELATIVE PERCENT (BEAKER) 0 % 0-1 (test kuah=8602) BODY FLUID CULTURE + GRAM [id number] 13:44:00 Test Item Value Reference Range Comments CULTURE (BEAKER) (test iloc=5219) No growth GRAM STAIN RESULT (BEAKER) (test <1+ White blood cells seen exjl=4786) GRAM STAIN RESULT (BEAKER) (test No organisms seen fsnu=01900) BODY FLUID CULTURE + GRAM [id number] 14:06:00 Test Item Value Reference Range Comments CULTURE (BEAKER) (test eumw=8986) No growth GRAM STAIN RESULT (BEAKER) (test No White blood cells seen vpuv=5743) GRAM STAIN RESULT (BEAKER) (test No organisms seen ofpd=23505) BASIC METABOLIC [id number] 08:41:00 Test Item Value Reference Range Comments SODIUM (BEAKER) (test 132 meq/L 136-145 ldbw=138) POTASSIUM (BEAKER) (test 4.4 meq/L 3.5-5.1 lcmu=153) CHLORIDE (BEAKER) (test 100 meq/L 98-107 wmev=018) CO2 (BEAKER) (test 25 meq/L 22-29 ljpm=564) BLOOD UREA NITROGEN 53 mg/dL 7-21 (BEAKER) (test nwcx=290) CREATININE (BEAKER) (test 1.80 mg/dL 0.57-1.25 hlzo=050) GLUCOSE RANDOM (BEAKER) 211 mg/dL 70-105 (test suzm=177) CALCIUM (BEAKER) (test 9.0 mg/dL 8.4-10.2 wqif=090) EGFR (BEAKER) (test 29 mL/min/1.73 sq m ESTIMATED GFR IS NOT jqnp=7464) ACCURATE CREATININE CLEARANCE IN PREDICTING GLOMERULAR FILTRATION RATE. ESTIMATED GFR IS NOT APPLICABLE FOR DIALYSIS PATIENTS. POCT-GLUCOSE [id number] 08:16:00 Test Item Value Reference Range Comments POC-GLUCOSE METER (BEAKER) 213 mg/dL 70-[address] [facility] [address] [place] [address] (test jakl=4396) [facility] [address] HEPATIC FUNCTION [id number] 06:43:00 Test Item Value Reference Range Comments TOTAL PROTEIN (BEAKER) (test oggq=875) 5.7 gm/dL 6.0-8.3 ALBUMIN (BEAKER) (test nkyy=8078) 4.2 g/dL 3.5-5.0 BILIRUBIN TOTAL (BEAKER) (test zkal=391) 1.6 mg/dL 0.2-1.2 BILIRUBIN DIRECT (BEAKER) (test seox=392) 0.8 mg/dL 0.1-0.5 ALKALINE PHOSPHATASE (BEAKER) (test dufi=826) 95 U/L 40-150 AST (SGOT) (BEAKER) (test iqup=380) 71 U/L 5-34 ALT (SGPT) (BEAKER) (test hkpc=711) 68 U/L 6-55 POCT-GLUCOSE [id number] 22:00:00 Test Item Value Reference Range Comments POC-GLUCOSE METER (BEAKER) 341 mg/dL 70-110 Notified ALEXI ENNIS/TESTED AT [facility] (test ybrr=8410) [address] [place] [id number] BODY FLUID CELL COUNT WITH [id number] 20:00:00 Test Item Value Reference Range Comments APPEARANCE FLUID (BEAKER) (test ogas=863) Hazy Clear COLOR FLUID (BEAKER) (test rmaq=407) Straw Colorless, Straw RBC FLUID (BEAKER) (test vwzu=082) 4000 /cu mm <=1 ADJUSTED WBC FLUID (BEAKER) (test rrgc=3218) 140 /cu mm <=5 LINING CELLS (BEAKER) (test bhsq=3737) 1 /cu mm <=1 NEUTROPHILS FLUID (BEAKER) (test bysn=6633) 1 % LYMPHS FLUID (BEAKER) (test ftcv=591) 30 % MONO/MACROPHAGE FLUID (BEAKER) (test zzrl=564) 69 % EOSINOPHILS FLUID (BEAKER) (test tiga=197) 0 % BASO FLUID (BEAKER) (test eism=113) 0 % CONTAINER BODY FLUID (BEAKER) (test skdz=4613) EDTA Tube U/S, [id number] 16:42:00Reason for exam:->ascites limited 6 litersFINAL REPORT PROCEDURE: Ultrasound-guided paracentesis. INDICATION: 59-year-old woman with ascites. DESCRIPTION: After obtaining informed written consent, ultrasound scan of the abdomen identified ascites in the right lower quadrant. The overlying skin was prepped and draped in the usual, sterile fashion and local 2% lidocaine anesthesia was administered. A 5 Moldovan catheter was advanced into the peritoneal cavity and 6000 cc of serous fluid was removed. The catheter was removed without immediate complication. Samples were sent for analysis. IMPRESSION:Uncomplicated ultrasound-guided paracentesis with 6000 cc fluid removed. Signed: Antwon Bose MDReport Verified Date/Time: 02/24/2019 16:42:07 Reading Location: [address] Ultrasound Reading Room POCT-GLUCOSE [id number] 13:07:00 Test Item Value Reference Range Comments POC-GLUCOSE METER (BEAKER) 290 mg/dL 70-110 TESTED AT [address] (test whny=8735) [facility] [address] PROTHROMBIN [id number] 12:01:00 Test Item Value Reference Range Comments PROTIME (BEAKER) (test xowk=668) 14.3 seconds 11.7-14.7 INR (BEAKER) (test suhb=730) 1.1 <=5.9 RECOMMENDED COUMADIN/WARFARIN INR THERAPY RANGESSTANDARD DOSE: 2.0 - 3.0 Includes: PROPHYLAXIS forvenous thrombosis, systemic embolization; TREATMENT for venous thrombosis and/or pulmonary embolus.HIGH RISK: Target INR is 2.5-3.5 for patients with mechanical heart valves.[id number] 12:01:00 Test Item Value Reference Range Comments PARTIAL THROMBOPLASTIN TIME (BEAKER) (test 32.5 seconds 22.5-36.0 mgfm=697) POCT-GLUCOSE [id number] 08:39:00 Test Item Value Reference Range Comments POC-GLUCOSE METER (BEAKER) 279 mg/dL 70-[address] [facility] [address] [facility] (test zzre=2339) [place] [address] CALCIUM, [id number] 07:04:00 Test Item Value Reference Range Comments CALCIUM IONIZED (BEAKER) (test bsir=624) 1.08 mmol/L 1.12-1.27 PH, BLOOD (BEAKER) (test wctw=7086) 7.38 COMPREHENSIVE METABOLIC [id number] 05:59:00 Test Item Value Reference Range Comments TOTAL PROTEIN (BEAKER) 5.5 gm/dL 6.0-8.3 (test zldh=838) ALBUMIN (BEAKER) (test 3.8 g/dL 3.5-5.0 oyfl=5574) ALKALINE PHOSPHATASE 125 U/L 40-150 (BEAKER) (test gyqe=799) BILIRUBIN TOTAL (BEAKER) 0.9 mg/dL 0.2-1.2 (test yxbc=663) SODIUM (BEAKER) (test 130 meq/L 136-145 bnsh=101) POTASSIUM (BEAKER) (test 4.0 meq/L 3.5-5.1 kdbu=620) CHLORIDE (BEAKER) (test 99 meq/L 98-107 xzwm=206) CO2 (BEAKER) (test 23 meq/L 22-29 mgik=193) BLOOD UREA NITROGEN 51 mg/dL 7-21 (BEAKER) (test ykqi=626) CREATININE (BEAKER) (test 2.07 mg/dL 0.57-1.25 epgz=217) GLUCOSE RANDOM (BEAKER) 320 mg/dL 70-105 (test dfog=015) CALCIUM (BEAKER) (test 8.7 mg/dL 8.4-10.2 woal=960) AST (SGOT) (BEAKER) (test 111 U/L 5-34 kyla=257) ALT (SGPT) (BEAKER) (test 98 U/L 6-55 snfe=688) EGFR (BEAKER) (test 24 mL/min/1.73 sq m ESTIMATED GFR IS NOT qmva=5970) ACCURATE CREATININE CLEARANCE IN PREDICTING GLOMERULAR FILTRATION RATE. ESTIMATED GFR IS NOT APPLICABLE FOR DIALYSIS PATIENTS. [id number] 05:58:00 Test Item Value Reference Range Comments PHOSPHORUS (BEAKER) (test jjlo=266) 2.1 mg/dL 2.3-4.7 [id number] 05:58:00 Test Item Value Reference Range Comments MAGNESIUM (BEAKER) (test iemo=775) 2.3 mg/dL 1.6-2.6 HEPATIC FUNCTION [id number] 05:58:00 Test Item Value Reference Range Comments TOTAL PROTEIN (BEAKER) (test jemk=054) 5.5 gm/dL 6.0-8.3 ALBUMIN (BEAKER) (test oomo=4019) 3.8 g/dL 3.5-5.0 BILIRUBIN TOTAL (BEAKER) (test fkrd=986) 0.9 mg/dL 0.2-1.2 BILIRUBIN DIRECT (BEAKER) (test kljn=865) 0.4 mg/dL 0.1-0.5 ALKALINE PHOSPHATASE (BEAKER) (test gmrv=576) 125 U/L 40-150 AST (SGOT) (BEAKER) (test vrmb=185) 111 U/L 5-34 ALT (SGPT) (BEAKER) (test hrbh=370) 98 U/L 6-55 CBC W/PLT COUNT & AUTO [id number] 05:29:00 Test Item Value Reference Range Comments WHITE BLOOD CELL COUNT (BEAKER) (test xjoo=963) 5.9 K/ L 3.5-10.5 RED BLOOD CELL COUNT (BEAKER) (test hwia=933) 3.00 M/ L 3.93-5.22 HEMOGLOBIN (BEAKER) (test wpaq=738) 8.5 GM/DL 11.2-15.7 HEMATOCRIT (BEAKER) (test csek=525) 25.3 % 34.1-44.9 MEAN CORPUSCULAR VOLUME (BEAKER) (test pvko=032) 84.3 fL 79.4-94.8 MEAN CORPUSCULAR HEMOGLOBIN (BEAKER) (test 28.3 pg 25.6-32.2 lwyu=135) MEAN CORPUSCULAR HEMOGLOBIN CONC (BEAKER) (test 33.6 GM/DL 32.2-35.5 qgib=640) RED CELL DISTRIBUTION WIDTH (BEAKER) (test 14.8 % 11.7-14.4 bezv=552) PLATELET COUNT (BEAKER) (test peiz=224) 146 K/CU MM 150-450 MEAN PLATELET VOLUME (BEAKER) (test xtei=378) 10.1 fL 9.4-12.3 NUCLEATED RED BLOOD CELLS (BEAKER) (test 0 /100 WBC 0-0 neqr=513) NEUTROPHILS RELATIVE PERCENT (BEAKER) (test 67 % fiyy=454) LYMPHOCYTES RELATIVE PERCENT (BEAKER) (test 16 % eckj=267) MONOCYTES RELATIVE PERCENT (BEAKER) (test 10 % oiln=586) EOSINOPHILS RELATIVE PERCENT (BEAKER) (test 6 % twmm=747) BASOPHILS RELATIVE PERCENT (BEAKER) (test 1 % lgej=954) NEUTROPHILS ABSOLUTE COUNT (BEAKER) (test 3.94 K/ L 1.56-6.13 kzdm=323) LYMPHOCYTES ABSOLUTE COUNT (BEAKER) (test 0.96 K/ L 1.18-3.74 ajxw=253) MONOCYTES ABSOLUTE COUNT (BEAKER) (test 0.57 K/ L 0.24-0.36 kqwv=814) EOSINOPHILS ABSOLUTE COUNT (BEAKER) (test 0.37 K/ L 0.04-0.36 cbly=249) BASOPHILS ABSOLUTE COUNT (BEAKER) (test 0.03 K/ L 0.01-0.08 ksop=388) IMMATURE GRANULOCYTES-RELATIVE PERCENT (BEAKER) 0 % 0-1 (test ppnf=0155) POCT-GLUCOSE [id number] 21:01:00 Test Item Value Reference Range Comments POC-GLUCOSE METER (BEAKER) 371 mg/dL 70-110 Notified ALEXI ENNIS/TESTED AT [facility] (test sdzk=9312) [address] [place] [address] POCT-GLUCOSE [id number] 17:30:00 Test Item Value Reference Range Comments POC-GLUCOSE METER (BEAKER) 389 mg/dL 70-110 TESTED AT [address] (test sswm=4838) [facility] [address] POCT-GLUCOSE [id number] 08:50:00 Test Item Value Reference Range Comments POC-GLUCOSE METER (BEAKER) 303 mg/dL 70-110 TESTED AT [address] (test hhsy=6083) [facility] [address] POCT-GLUCOSE [id number] 08:27:00 Test Item Value Reference Range Comments POC-GLUCOSE METER (BEAKER) 342 mg/dL 70-110 Will Repeat Test/TESTED AT (test ptsh=1276) [facility] [address] [facility] [address] CALCIUM, [id number] 07:20:00 Test Item Value Reference Range Comments CALCIUM IONIZED (BEAKER) (test cdfd=739) 0.98 mmol/L 1.12-1.27 PH, BLOOD (BEAKER) (test owvh=7633) 7.41 COMPREHENSIVE METABOLIC [id number] 07:05:00 Test Item Value Reference Range Comments TOTAL PROTEIN (BEAKER) 5.0 gm/dL 6.0-8.3 (test bnqc=170) ALBUMIN (BEAKER) (test 3.3 g/dL 3.5-5.0 aaza=1858) ALKALINE PHOSPHATASE 126 U/L 40-150 (BEAKER) (test wqbl=181) BILIRUBIN TOTAL (BEAKER) 1.2 mg/dL 0.2-1.2 (test nvas=021) SODIUM (BEAKER) (test 128 meq/L 136-145 vkyw=839) POTASSIUM (BEAKER) (test 4.1 meq/L 3.5-5.1 fsxr=569) CHLORIDE (BEAKER) (test 98 meq/L 98-107 fumm=308) CO2 (BEAKER) (test 20 meq/L 22-29 uppw=502) BLOOD UREA NITROGEN 43 mg/dL 7-21 (BEAKER) (test rbbg=108) CREATININE (BEAKER) (test 2.39 mg/dL 0.57-1.25 xzvm=495) GLUCOSE RANDOM (BEAKER) 305 mg/dL 70-105 (test rnkm=667) CALCIUM (BEAKER) (test 8.1 mg/dL 8.4-10.2 mnxz=940) AST (SGOT) (BEAKER) (test 173 U/L 5-34 uqvf=614) ALT (SGPT) (BEAKER) (test 143 U/L 6-55 kdjx=856) EGFR (BEAKER) (test 21 mL/min/1.73 sq m ESTIMATED GFR IS NOT yeza=5182) ACCURATE CREATININE CLEARANCE IN PREDICTING GLOMERULAR FILTRATION RATE. ESTIMATED GFR IS NOT APPLICABLE FOR DIALYSIS PATIENTS. [id number] 06:56:00 Test Item Value Reference Range Comments PHOSPHORUS (BEAKER) (test lqtk=962) 2.5 mg/dL 2.3-4.7 [id number] 06:56:00 Test Item Value Reference Range Comments MAGNESIUM (BEAKER) (test ekrg=494) 1.9 mg/dL 1.6-2.6 HEPATIC FUNCTION [id number] 06:56:00 Test Item Value Reference Range Comments TOTAL PROTEIN (BEAKER) (test nxyb=658) 5.0 gm/dL 6.0-8.3 ALBUMIN (BEAKER) (test xtag=6294) 3.3 g/dL 3.5-5.0 BILIRUBIN TOTAL (BEAKER) (test kxnw=047) 1.2 mg/dL 0.2-1.2 BILIRUBIN DIRECT (BEAKER) (test wvzd=521) 0.6 mg/dL 0.1-0.5 ALKALINE PHOSPHATASE (BEAKER) (test qdjq=133) 126 U/L 40-150 AST (SGOT) (BEAKER) (test havy=797) 173 U/L 5-34 ALT (SGPT) (BEAKER) (test rylf=029) 143 U/L 6-55 CBC W/PLT COUNT & AUTO [id number] 06:17:00 Test Item Value Reference Range Comments WHITE BLOOD CELL COUNT (BEAKER) (test oesi=172) 5.7 K/ L 3.5-10.5 RED BLOOD CELL COUNT (BEAKER) (test tmtd=159) 3.40 M/ L 3.93-5.22 HEMOGLOBIN (BEAKER) (test wxks=880) 9.2 GM/DL 11.2-15.7 HEMATOCRIT (BEAKER) (test ssua=277) 29.1 % 34.1-44.9 MEAN CORPUSCULAR VOLUME (BEAKER) (test muci=211) 85.6 fL 79.4-94.8 MEAN CORPUSCULAR HEMOGLOBIN (BEAKER) (test 27.1 pg 25.6-32.2 azfz=040) MEAN CORPUSCULAR HEMOGLOBIN CONC (BEAKER) (test 31.6 GM/DL 32.2-35.5 eikr=527) RED CELL DISTRIBUTION WIDTH (BEAKER) (test 14.7 % 11.7-14.4 fuew=834) PLATELET COUNT (BEAKER) (test llcb=573) 128 K/CU MM 150-450 MEAN PLATELET VOLUME (BEAKER) (test nobc=253) 10.3 fL 9.4-12.3 NUCLEATED RED BLOOD CELLS (BEAKER) (test 0 /100 WBC 0-0 pesp=335) NEUTROPHILS RELATIVE PERCENT (BEAKER) (test 69 % epqx=758) LYMPHOCYTES RELATIVE PERCENT (BEAKER) (test 15 % ooeb=333) MONOCYTES RELATIVE PERCENT (BEAKER) (test 9 % oisg=631) EOSINOPHILS RELATIVE PERCENT (BEAKER) (test 6 % abjf=887) BASOPHILS RELATIVE PERCENT (BEAKER) (test 1 % yunq=900) NEUTROPHILS ABSOLUTE COUNT (BEAKER) (test 3.91 K/ L 1.56-6.13 uvjg=274) LYMPHOCYTES ABSOLUTE COUNT (BEAKER) (test 0.86 K/ L 1.18-3.74 csfu=132) MONOCYTES ABSOLUTE COUNT (BEAKER) (test 0.51 K/ L 0.24-0.36 tino=787) EOSINOPHILS ABSOLUTE COUNT (BEAKER) (test 0.35 K/ L 0.04-0.36 cjsq=094) BASOPHILS ABSOLUTE COUNT (BEAKER) (test 0.03 K/ L 0.01-0.08 tfhf=365) IMMATURE GRANULOCYTES-RELATIVE PERCENT (BEAKER) 0 % 0-1 (test qukv=2669) BODY FLUID CELL COUNT WITH [id number] 17:06:00 Test Item Value Reference Range Comments APPEARANCE FLUID (BEAKER) (test krlc=206) Hazy Clear COLOR FLUID (BEAKER) (test zeia=307) Yellow Colorless, Straw RBC FLUID (BEAKER) (test kpum=196) 6000 /cu mm <=1 ADJUSTED WBC FLUID (BEAKER) (test dqez=9674) 125 /cu mm <=5 LINING CELLS (BEAKER) (test noub=9635) 2 /cu mm <=1 NEUTROPHILS FLUID (BEAKER) (test gikt=1494) 6 % LYMPHS FLUID (BEAKER) (test lybu=931) 21 % MONO/MACROPHAGE FLUID (BEAKER) (test pryd=220) 73 % EOSINOPHILS FLUID (BEAKER) (test hovl=031) 0 % BASO FLUID (BEAKER) (test rkli=918) 0 % CONTAINER BODY FLUID (BEAKER) (test jckv=6200) EDTA Tube POCT-GLUCOSE [id number] 16:40:00 Test Item Value Reference Range Comments POC-GLUCOSE METER (BEAKER) 396 mg/dL 70-[address] [facility] [address] (test ujzq=8930) [facility] [address] U/S, [id number] 16:12:00limit to 6 LReason for exam:->ascites, limit to 6 LFINAL REPORT Paracentesis dated 02/22/2019 Procedure: Ultrasound-guided paracentesis. Preprocedure diagnosis: Ascites Postprocedure diagnosis: Ascites Conscious sedation: None. Radiologist: Giovanni Haas M.D. Frame Fixer: None Anesthesia: 1% Xylocaine mixed with sodium bicarbonate local anesthesia. Technique: After obtaining informed consent, ultrasound-guided paracentesis was performed under usual sterile technique. Using a 5 bahamian drainage catheter, puncture was made in the right lower quadrant abdomen. Approximately 6000 cc of serous fluid was removed. Patient tolerated the procedure well without complication. Complication: None Graft/ Implant: None Estimated Blood Loss: None Impression: Ultrasound-guided paracentesis. Signed: Giovanni Haas Verified Date/Time: 02/22/2019 16:12 :23 Reading Location: [facility] C013Y CT Body Reading Room RAD, CHEST, 1 VIEW, NON [id number] 12:22:00Reason for exam:->coughShould this be performed at [...] Verified Date/ Time: 02/22/2019 12:22:24 Reading Location: [facility] C013W Consult Reading Room POCT-GLUCOSE [id number] 07:55:00 Test Item Value Reference Range Comments POC-GLUCOSE METER (BEAKER) 317 mg/dL 70-110 TESTED AT [address] (test cpma=8678) [facility] [address] POCT-GLUCOSE [id number] 07:24:00 Test Item Value Reference Range Comments POC-GLUCOSE METER (BEAKER) 386 mg/dL 70-110 Notified ALEXI ENNIS/TESTED AT [facility] (test ghof=8381) [address] [place] [address] POCT-GLUCOSE [id number] 07:24:00 Test Item Value Reference Range Comments POC-GLUCOSE METER (BEAKER) 295 mg/dL 70-110 TESTED AT [address] (test qxyu=2926) [facility] [address] POCT-GLUCOSE [id number] 07:24:00 Test Item Value Reference Range Comments POC-GLUCOSE METER (BEAKER) 256 mg/dL 70-110 TESTED AT [address] (test gddz=1199) [facility] [address] BASIC METABOLIC [id number] 06:50:00 Test Item Value Reference Range Comments SODIUM (BEAKER) (test 128 meq/L 136-145 bstp=480) POTASSIUM (BEAKER) (test 4.0 meq/L 3.5-5.1 koxp=333) CHLORIDE (BEAKER) (test 100 meq/L 98-107 euhe=578) CO2 (BEAKER) (test 21 meq/L 22-29 mafb=424) BLOOD UREA NITROGEN 40 mg/dL 7-21 (BEAKER) (test netr=697) CREATININE (BEAKER) (test 2.62 mg/dL 0.57-1.25 ibux=103) GLUCOSE RANDOM (BEAKER) 351 mg/dL 70-105 (test tuad=219) CALCIUM (BEAKER) (test 8.0 mg/dL 8.4-10.2 jhmj=598) EGFR (BEAKER) (test 19 mL/min/1.73 sq m ESTIMATED GFR IS NOT syxs=4761) ACCURATE CREATININE CLEARANCE IN PREDICTING GLOMERULAR FILTRATION RATE. ESTIMATED GFR IS NOT APPLICABLE FOR DIALYSIS PATIENTS. [id number] 06:46:00 Test Item Value Reference Range Comments MAGNESIUM (BEAKER) (test evoe=366) 1.9 mg/dL 1.6-2.6 BLOOD [id number] 20:01:00 Test Item Value Reference Range Comments CULTURE (BEAKER) (test uewz=7647) No growth in 5 days BLOOD [id number] 20:01:00 Test Item Value Reference Range Comments CULTURE (BEAKER) (test pzxz=0742) No growth in 5 days POCT-GLUCOSE [id number] 08:39:00 Test Item Value Reference Range Comments POC-GLUCOSE METER (BEAKER) 300 mg/dL 70-[address] [facility] [address] (test ypdb=6020) [facility] [address] POCT-GLUCOSE [id number] 08:39:00 Test Item Value Reference Range Comments POC-GLUCOSE METER (BEAKER) 330 mg/dL 70-110 Notified ALEXI ENNIS/TESTED AT [facility] (test uyvo=0193) [address] [facility] [address] COMPREHENSIVE METABOLIC [id number] 08:25:00 Test Item Value Reference Range Comments TOTAL PROTEIN (BEAKER) 4.9 gm/dL 6.0-8.3 (test kxqt=107) ALBUMIN (BEAKER) (test 3.3 g/dL 3.5-5.0 scrq=3953) ALKALINE PHOSPHATASE 129 U/L 40-150 (BEAKER) (test vdvn=843) BILIRUBIN TOTAL (BEAKER) 1.2 mg/dL 0.2-1.2 (test qflz=832) SODIUM (BEAKER) (test 130 meq/L 136-145 rznd=398) POTASSIUM (BEAKER) (test 4.5 meq/L 3.5-5.1 olsn=160) CHLORIDE (BEAKER) (test 102 meq/L 98-107 jyrj=996) CO2 (BEAKER) (test 20 meq/L 22-29 hfkj=801) BLOOD UREA NITROGEN 32 mg/dL 7-21 (BEAKER) (test bteg=237) CREATININE (BEAKER) (test 2.28 mg/dL 0.57-1.25 neom=030) GLUCOSE RANDOM (BEAKER) 341 mg/dL 70-105 (test uvdn=311) CALCIUM (BEAKER) (test 8.1 mg/dL 8.4-10.2 hnse=529) AST (SGOT) (BEAKER) (test 851 U/L 5-34 oghl=041) ALT (SGPT) (BEAKER) (test 345 U/L 6-55 htdm=870) EGFR (BEAKER) (test 22 mL/min/1.73 sq m ESTIMATED GFR IS NOT uvbu=2032) ACCURATE CREATININE CLEARANCE IN PREDICTING GLOMERULAR FILTRATION RATE. ESTIMATED GFR IS NOT APPLICABLE FOR DIALYSIS PATIENTS. [id number] 08:19:00 Test Item Value Reference Range Comments PHOSPHORUS (BEAKER) (test onue=228) 2.3 mg/dL 2.3-4.7 [id number] 08:19:00 Test Item Value Reference Range Comments MAGNESIUM (BEAKER) (test cspl=743) 1.9 mg/dL 1.6-2.6 CALCIUM, [id number] 07:20:00 Test Item Value Reference Range Comments CALCIUM IONIZED (BEAKER) (test tafr=885) 0.98 mmol/L 1.12-1.27 PH, BLOOD (BEAKER) (test brwx=6923) 7.42 CBC W/PLT COUNT & AUTO [id number] 06:36:00 Test Item Value Reference Range Comments WHITE BLOOD CELL COUNT (BEAKER) (test leyp=797) 8.1 K/ L 3.5-10.5 RED BLOOD CELL COUNT (BEAKER) (test dfqg=807) 3.43 M/ L 3.93-5.22 HEMOGLOBIN (BEAKER) (test ctnf=344) 9.2 GM/DL 11.2-15.7 HEMATOCRIT (BEAKER) (test fzrb=901) 29.3 % 34.1-44.9 MEAN CORPUSCULAR VOLUME (BEAKER) (test zoba=303) 85.4 fL 79.4-94.8 MEAN CORPUSCULAR HEMOGLOBIN (BEAKER) (test 26.8 pg 25.6-32.2 lcjn=572) MEAN CORPUSCULAR HEMOGLOBIN CONC (BEAKER) (test 31.4 GM/DL 32.2-35.5 oedi=778) RED CELL DISTRIBUTION WIDTH (BEAKER) (test 14.6 % 11.7-14.4 wwth=115) PLATELET COUNT (BEAKER) (test osyr=094) 132 K/CU MM 150-450 MEAN PLATELET VOLUME (BEAKER) (test ufhz=469) 9.3 fL 9.4-12.3 NUCLEATED RED BLOOD CELLS (BEAKER) (test 0 /100 WBC 0-0 cuwy=288) NEUTROPHILS RELATIVE PERCENT (BEAKER) (test 77 % sagt=398) LYMPHOCYTES RELATIVE PERCENT (BEAKER) (test 13 % cirf=450) MONOCYTES RELATIVE PERCENT (BEAKER) (test 8 % tshl=413) EOSINOPHILS RELATIVE PERCENT (BEAKER) (test 2 % brzx=678) BASOPHILS RELATIVE PERCENT (BEAKER) (test 1 % sdxx=999) NEUTROPHILS ABSOLUTE COUNT (BEAKER) (test 6.17 K/ L 1.56-6.13 arpr=225) LYMPHOCYTES ABSOLUTE COUNT (BEAKER) (test 1.02 K/ L 1.18-3.74 trqk=238) MONOCYTES ABSOLUTE COUNT (BEAKER) (test 0.61 K/ L 0.24-0.36 tvyp=635) EOSINOPHILS ABSOLUTE COUNT (BEAKER) (test 0.18 K/ L 0.04-0.36 rfxy=036) BASOPHILS ABSOLUTE COUNT (BEAKER) (test 0.05 K/ L 0.01-0.08 kcvo=023) IMMATURE GRANULOCYTES-RELATIVE PERCENT (BEAKER) 1 % 0-1 (test pblk=1057) BASIC METABOLIC [id number] 19:24:00 Test Item Value Reference Range Comments SODIUM (BEAKER) (test 132 meq/L 136-145 pqfc=636) POTASSIUM (BEAKER) (test 4.8 meq/L 3.5-5.1 lzrl=715) CHLORIDE (BEAKER) (test 103 meq/L 98-107 lgui=747) CO2 (BEAKER) (test 20 meq/L 22-29 stya=772) BLOOD UREA NITROGEN 30 mg/dL 7-21 (BEAKER) (test yxva=524) CREATININE (BEAKER) (test 1.85 mg/dL 0.57-1.25 bivz=992) GLUCOSE RANDOM (BEAKER) 297 mg/dL 70-105 (test wfmz=739) CALCIUM (BEAKER) (test 8.7 mg/dL 8.4-10.2 kjti=440) EGFR (BEAKER) (test 28 mL/min/1.73 sq m ESTIMATED GFR IS NOT nzvo=4708) ACCURATE CREATININE CLEARANCE IN PREDICTING GLOMERULAR FILTRATION RATE. ESTIMATED GFR IS NOT APPLICABLE FOR DIALYSIS PATIENTS. Please draw 4 [address] Page Dr. Quiroz at [phone] with results.Call [id number] 19:22:00 Test Item Value Reference Range Comments SODIUM (BEAKER) (test chys=245) 132 meq/L 136-145 POTASSIUM (BEAKER) (test prvg=675) 4.8 meq/L 3.5-5.1 CHLORIDE (BEAKER) (test ghlk=895) 103 meq/L 98-107 CO2 (BEAKER) (test skvl=854) 20 meq/L 22-29 Please draw 4 [address] Page Dr[address] Quiroz at [phone] with results.Call [id number] 18:11:00 Test Item Value Reference Range Comments POC-GLUCOSE METER (BEAKER) 314 mg/dL 70-110 TESTED AT [address] (test dvzr=6003) [place] [id number] POCT-GLUCOSE [id number] 17:29:00 Test Item Value Reference Range Comments POC-GLUCOSE METER (BEAKER) 255 mg/dL 70-110 TESTED AT [address] (test iscy=1580) [facility] [address] POCT-GLUCOSE [id number] 13:02:00 Test Item Value Reference Range Comments POC-GLUCOSE METER (BEAKER) 289 mg/dL 70-110 TESTED AT [address] (test psbq=2749) [place] [id number] BODY FLUID CULTURE + GRAM [id number] 12:08:00 Test Item Value Reference Range Comments CULTURE (BEAKER) (test nghb=3252) No growth GRAM STAIN RESULT (BEAKER) (test <1+ WBCs svik=5137) GRAM STAIN RESULT (BEAKER) (test No organisms seen syqg=41656) SEAMUS [id number] 09:29:00Reason for exam:->cirrhosis/ portal hypertension , refractory [...] and a bleeding placement of a 10 Moldovan sheath from theright hepatic vein to the [...] 1 L of yellow fluid. The 5 Moldovan needle/catheter was inserted with real-time ultrasound guidance into the peritoneal cavity in the right lateral abdomen following sterile preparation. Following this, the sheath catheter was removed. CONCLUSION: Successful TIPS and paracentesis. Signed: Yulia Kaba MDReport Verified Date/Time: 02/20/2019 09:29:18 Reading Location : [place] [address] Angio Body Reading Room CALCIUM, [id number] 06:43:00 Test Item Value Reference Range Comments CALCIUM IONIZED (BEAKER) (test icfi=879) 1.02 mmol/L 1.12-1.27 PH, BLOOD (BEAKER) (test kosb=5407) 7.40 [id number] 06:12:00 Test Item Value Reference Range Comments PHOSPHORUS (BEAKER) (test ichk=985) 2.5 mg/dL 2.3-4.7 [id number] 06:12:00 Test Item Value Reference Range Comments MAGNESIUM (BEAKER) (test crlk=319) 1.6 mg/dL 1.6-2.6 HEPATIC FUNCTION [id number] 06:12:00 Test Item Value Reference Range Comments TOTAL PROTEIN (BEAKER) (test efvl=105) 5.3 gm/dL 6.0-8.3 ALBUMIN (BEAKER) (test lwow=2116) 3.6 g/dL 3.5-5.0 BILIRUBIN TOTAL (BEAKER) (test texk=739) 1.2 mg/dL 0.2-1.2 BILIRUBIN DIRECT (BEAKER) (test axwh=152) 0.6 mg/dL 0.1-0.5 ALKALINE PHOSPHATASE (BEAKER) (test mvmo=737) 80 U/L 40-150 AST (SGOT) (BEAKER) (test kjtt=604) 99 U/L 5-34 ALT (SGPT) (BEAKER) (test khsp=049) 52 U/L 6-55 COMPREHENSIVE METABOLIC [id number] 06:12:00 Test Item Value Reference Range Comments TOTAL PROTEIN (BEAKER) 5.3 gm/dL 6.0-8.3 (test xwzt=203) ALBUMIN (BEAKER) (test 3.6 g/dL 3.5-5.0 kbem=0167) ALKALINE PHOSPHATASE 80 U/L 40-150 (BEAKER) (test kyvu=517) BILIRUBIN TOTAL (BEAKER) 1.2 mg/dL 0.2-1.2 (test pxxo=804) SODIUM (BEAKER) (test 133 meq/L 136-145 lxdi=781) POTASSIUM (BEAKER) (test 5.4 meq/L 3.5-5.1 dbqm=189) CHLORIDE (BEAKER) (test 104 meq/L 98-107 wobt=132) CO2 (BEAKER) (test 22 meq/L 22-29 rafs=653) BLOOD UREA NITROGEN 27 mg/dL 7-21 (BEAKER) (test sjfk=324) CREATININE (BEAKER) (test 1.58 mg/dL 0.57-1.25 eluj=270) GLUCOSE RANDOM (BEAKER) 300 mg/dL 70-105 (test sqnn=672) CALCIUM (BEAKER) (test 8.4 mg/dL 8.4-10.2 uheq=417) AST (SGOT) (BEAKER) (test 99 U/L 5-34 dzgj=629) ALT (SGPT) (BEAKER) (test 52 U/L 6-55 jblp=900) EGFR (BEAKER) (test 33 mL/min/1.73 sq m ESTIMATED GFR IS NOT ofmi=6056) ACCURATE CREATININE CLEARANCE IN PREDICTING GLOMERULAR FILTRATION RATE. ESTIMATED GFR IS NOT APPLICABLE FOR DIALYSIS PATIENTS. PROTHROMBIN [id number] 05:57:00 Test Item Value Reference Range Comments PROTIME (BEAKER) (test wwxu=069) 16.4 seconds 11.7-14.7 INR (BEAKER) (test hxib=627) 1.3 <=5.9 RECOMMENDED COUMADIN/WARFARIN INR THERAPY RANGESSTANDARD DOSE: 2.0 - 3.0 Includes: PROPHYLAXIS forvenous thrombosis, systemic embolization; TREATMENT for venous thrombosis and/or pulmonary embolus.HIGH RISK: Target INR is 2.5-3.5 for patients with mechanical heart valves.CBC W/PLT COUNT & AUTO [id number] 05:54:00 Test Item Value Reference Range Comments WHITE BLOOD CELL COUNT (BEAKER) (test iyon=898) 7.9 K/ L 3.5-10.5 RED BLOOD CELL COUNT (BEAKER) (test ukac=025) 3.24 M/ L 3.93-5.22 HEMOGLOBIN (BEAKER) (test wsvd=150) 8.9 GM/DL 11.2-15.7 HEMATOCRIT (BEAKER) (test gyvd=429) 28.0 % 34.1-44.9 MEAN CORPUSCULAR VOLUME (BEAKER) (test gndr=314) 86.4 fL 79.4-94.8 MEAN CORPUSCULAR HEMOGLOBIN (BEAKER) (test 27.5 pg 25.6-32.2 eeos=639) MEAN CORPUSCULAR HEMOGLOBIN CONC (BEAKER) (test 31.8 GM/DL 32.2-35.5 akvn=487) RED CELL DISTRIBUTION WIDTH (BEAKER) (test 14.4 % 11.7-14.4 qegl=876) PLATELET COUNT (BEAKER) (test tnpr=560) 132 K/CU MM 150-450 MEAN PLATELET VOLUME (BEAKER) (test gjep=440) 9.3 fL 9.4-12.3 NUCLEATED RED BLOOD CELLS (BEAKER) (test 0 /100 WBC 0-0 vpio=139) NEUTROPHILS RELATIVE PERCENT (BEAKER) (test 83 % veoc=804) LYMPHOCYTES RELATIVE PERCENT (BEAKER) (test 10 % oudp=002) MONOCYTES RELATIVE PERCENT (BEAKER) (test 7 % ngwd=132) EOSINOPHILS RELATIVE PERCENT (BEAKER) (test 0 % dxop=505) BASOPHILS RELATIVE PERCENT (BEAKER) (test 0 % wigw=797) NEUTROPHILS ABSOLUTE COUNT (BEAKER) (test 6.55 K/ L 1.56-6.13 omwh=066) LYMPHOCYTES ABSOLUTE COUNT (BEAKER) (test 0.77 K/ L 1.18-3.74 lgoa=548) MONOCYTES ABSOLUTE COUNT (BEAKER) (test 0.55 K/ L 0.24-0.36 qoip=186) EOSINOPHILS ABSOLUTE COUNT (BEAKER) (test 0.00 K/ L 0.04-0.36 mfuu=037) BASOPHILS ABSOLUTE COUNT (BEAKER) (test 0.02 K/ L 0.01-0.08 avmi=323) IMMATURE GRANULOCYTES-RELATIVE PERCENT (BEAKER) 0 % 0-1 (test hber=7376) POCT-GLUCOSE [id number] 19:01:00 Test Item Value Reference Range Comments POC-GLUCOSE METER (BEAKER) 301 mg/dL 70-[address] [facility] [address] [place] [address] (test ygvj=2384) [facility] [address] [address], ABDOMEN, WITHOUT [id number] 12:33:00FINAL REPORT ABDOMINAL CT DATED 02/19/2019 CLINICAL [...] [place] Verified Date/Time: 02/19/2019 12:33:54 Reading Location: [address] Body Reading Room Electronicallysigned by: GIOVANNI HAAS M.D. on 02/19/2019 12:33 PMBODY FLUID CULTURE + GRAM [id number] 12:08:00 Test Item Value Reference Range Comments CULTURE (BEAKER) (test qxln=4351) No growth GRAM STAIN RESULT (BEAKER) (test <1+ WBCs lpkc=9944) GRAM STAIN RESULT (BEAKER) (test No organisms seen fytg=09785) POCT-GLUCOSE [id number] 09:38:00 Test Item Value Reference Range Comments POC-GLUCOSE METER (BEAKER) 274 mg/dL 70-110 TESTED AT [address] (test nxka=0968) [facility] [address] CALCIUM, [id number] 06:56:00 Test Item Value Reference Range Comments CALCIUM IONIZED (BEAKER) (test zuhd=454) 1.05 mmol/L 1.12-1.27 PH, BLOOD (BEAKER) (test vkfj=7719) 7.40 [id number] 06:22:00 Test Item Value Reference Range Comments PHOSPHORUS (BEAKER) (test iwdz=084) 2.3 mg/dL 2.3-4.7 [id number] 06:22:00 Test Item Value Reference Range Comments MAGNESIUM (BEAKER) (test akel=536) 1.7 mg/dL 1.6-2.6 HEPATIC FUNCTION [id number] 06:22:00 Test Item Value Reference Range Comments TOTAL PROTEIN (BEAKER) (test fwri=395) 5.6 gm/dL 6.0-8.3 ALBUMIN (BEAKER) (test omsv=2313) 3.4 g/dL 3.5-5.0 BILIRUBIN TOTAL (BEAKER) (test bgdb=785) 0.9 mg/dL 0.2-1.2 BILIRUBIN DIRECT (BEAKER) (test mwxi=945) 0.4 mg/dL 0.1-0.5 ALKALINE PHOSPHATASE (BEAKER) (test tjvd=702) 121 U/L 40-150 AST (SGOT) (BEAKER) (test tdwm=601) 28 U/L 5-34 ALT (SGPT) (BEAKER) (test ijeo=359) 12 U/L 6-55 COMPREHENSIVE METABOLIC [id number] 06:22:00 Test Item Value Reference Range Comments TOTAL PROTEIN (BEAKER) 5.6 gm/dL 6.0-8.3 (test gtsl=516) ALBUMIN (BEAKER) (test 3.4 g/dL 3.5-5.0 fhka=0230) ALKALINE PHOSPHATASE 121 U/L 40-150 (BEAKER) (test bkhg=300) BILIRUBIN TOTAL (BEAKER) 0.9 mg/dL 0.2-1.2 (test usfv=497) SODIUM (BEAKER) (test 135 meq/L 136-145 kujm=665) POTASSIUM (BEAKER) (test 4.5 meq/L 3.5-5.1 kvmf=961) CHLORIDE (BEAKER) (test 105 meq/L 98-107 eknn=389) CO2 (BEAKER) (test 22 meq/L 22-29 jtyi=368) BLOOD UREA NITROGEN 29 mg/dL 7-21 (BEAKER) (test yzhr=969) CREATININE (BEAKER) (test 1.38 mg/dL 0.57-1.25 looq=443) GLUCOSE RANDOM (BEAKER) 313 mg/dL 70-105 (test lbne=930) CALCIUM (BEAKER) (test 8.7 mg/dL 8.4-10.2 qhcq=994) AST (SGOT) (BEAKER) (test 28 U/L 5-34 brqc=142) ALT (SGPT) (BEAKER) (test 12 U/L 6-55 tzce=624) EGFR (BEAKER) (test 39 mL/min/1.73 sq m ESTIMATED GFR IS NOT doit=7085) ACCURATE CREATININE CLEARANCE IN PREDICTING GLOMERULAR FILTRATION RATE. ESTIMATED GFR IS NOT APPLICABLE FOR DIALYSIS PATIENTS. PROTHROMBIN [id number] 06:15:00 Test Item Value Reference Range Comments PROTIME (BEAKER) (test jmmp=824) 14.0 seconds 11.7-14.7 INR (BEAKER) (test ylcs=830) 1.1 <=5.9 RECOMMENDED COUMADIN/WARFARIN INR THERAPY RANGESSTANDARD DOSE: 2.0 - 3.0 Includes: PROPHYLAXIS forvenous thrombosis, systemic embolization; TREATMENT for venous thrombosis and/or pulmonary embolus.HIGH RISK: Target INR is 2.5-3.5 for patients with mechanical heart valves.CBC W/PLT COUNT & AUTO [id number] 05:57:00 Test Item Value Reference Range Comments WHITE BLOOD CELL COUNT (BEAKER) (test varf=155) 6.9 K/ L 3.5-10.5 RED BLOOD CELL COUNT (BEAKER) (test jilp=664) 3.83 M/ L 3.93-5.22 HEMOGLOBIN (BEAKER) (test fzyk=312) 10.5 GM/DL 11.2-15.7 HEMATOCRIT (BEAKER) (test niyj=530) 33.1 % 34.1-44.9 MEAN CORPUSCULAR VOLUME (BEAKER) (test fyhs=690) 86.4 fL 79.4-94.8 MEAN CORPUSCULAR HEMOGLOBIN (BEAKER) (test 27.4 pg 25.6-32.2 dmop=564) MEAN CORPUSCULAR HEMOGLOBIN CONC (BEAKER) (test 31.7 GM/DL 32.2-35.5 mwfo=479) RED CELL DISTRIBUTION WIDTH (BEAKER) (test 14.4 % 11.7-14.4 jkco=584) PLATELET COUNT (BEAKER) (test quxw=828) 175 K/CU MM 150-450 MEAN PLATELET VOLUME (BEAKER) (test zxcj=214) 9.9 fL 9.4-12.3 NUCLEATED RED BLOOD CELLS (BEAKER) (test 0 /100 WBC 0-0 exvj=241) NEUTROPHILS RELATIVE PERCENT (BEAKER) (test 73 % xxgm=764) LYMPHOCYTES RELATIVE PERCENT (BEAKER) (test 16 % furs=264) MONOCYTES RELATIVE PERCENT (BEAKER) (test 7 % pxim=620) EOSINOPHILS RELATIVE PERCENT (BEAKER) (test 4 % vaiu=846) BASOPHILS RELATIVE PERCENT (BEAKER) (test 1 % fgat=319) NEUTROPHILS ABSOLUTE COUNT (BEAKER) (test 4.99 K/ L 1.56-6.13 nhqu=157) LYMPHOCYTES ABSOLUTE COUNT (BEAKER) (test 1.09 K/ L 1.18-3.74 jpdq=487) MONOCYTES ABSOLUTE COUNT (BEAKER) (test 0.50 K/ L 0.24-0.36 dqxs=717) EOSINOPHILS ABSOLUTE COUNT (BEAKER) (test 0.25 K/ L 0.04-0.36 iysv=014) BASOPHILS ABSOLUTE COUNT (BEAKER) (test 0.04 K/ L 0.01-0.08 ogld=796) IMMATURE GRANULOCYTES-RELATIVE PERCENT (BEAKER) 0 % 0-1 (test wcou=8350) POCT-GLUCOSE [id number] 23:05:00 Test Item Value Reference Range Comments POC-GLUCOSE METER (BEAKER) 412 mg/dL 70-110 Will Repeat Test/TESTED AT (test rgsn=7886) [address] [address] POCT-GLUCOSE [id number] 22:12:00 Test Item Value Reference Range Comments POC-GLUCOSE METER (BEAKER) 371 mg/dL 70-110 TESTED AT [address] (test pcxn=0322) [facility] [address] BODY FLUID CELL COUNT WITH [id number] 13:06:00 Test Item Value Reference Range Comments APPEARANCE FLUID (BEAKER) (test zwxs=017) Slightly Hazy Clear COLOR FLUID (BEAKER) (test tmjs=865) Yellow Colorless, Straw RBC FLUID (BEAKER) (test rdex=756) 252 /cu mm <=1 ADJUSTED WBC FLUID (BEAKER) (test jxtw=3791) 112 /cu mm <=5 LINING CELLS (BEAKER) (test usrl=1044) 10 /cu mm <=1 NEUTROPHILS FLUID (BEAKER) (test ehux=6834) 8 % LYMPHS FLUID (BEAKER) (test qadt=880) 40 % MONO/MACROPHAGE FLUID (BEAKER) (test 43 % gnrw=009) EOSINOPHILS FLUID (BEAKER) (test opyl=964) 0 % BASO FLUID (BEAKER) (test mklj=348) 0 % CONTAINER BODY FLUID (BEAKER) (test EDTA Tube krse=3039) U/S, [id number] 10:21:00Limit 8 LReason for exam:->ascites, limit 8 [...] skin and deep soft tissues. A 5 Moldovan one-step catheter was inserted and removed from the peritoneal space and approximately 8.0 liters of clear yellow fluid was aspirated from the abdomen. There were no immediate complications. Impression: Successful ultrasound guided paracentesis with aspiration of 8.0 liters of fluid. Signed: Akil Chung MDReport Verified Date/ Time: 02/18/2019 10:21:08 Reading Location: [address] Ultrasound Reading Room [id number] 07:08:00 Test Item Value Reference Range Comments MAGNESIUM (BEAKER) (test lstg=114) 1.7 mg/dL 1.6-2.6 HEPATIC FUNCTION [id number] 07:08:00 Test Item Value Reference Range Comments TOTAL PROTEIN (BEAKER) (test zguz=256) 5.4 gm/dL 6.0-8.3 ALBUMIN (BEAKER) (test sxtk=4214) 3.2 g/dL 3.5-5.0 BILIRUBIN TOTAL (BEAKER) (test jqyb=826) 0.8 mg/dL 0.2-1.2 BILIRUBIN DIRECT (BEAKER) (test zeun=140) 0.4 mg/dL 0.1-0.5 ALKALINE PHOSPHATASE (BEAKER) (test xxqs=012) 104 U/L 40-150 AST (SGOT) (BEAKER) (test ddgq=029) 20 U/L 5-34 ALT (SGPT) (BEAKER) (test fffu=916) 10 U/L 6-55 COMPREHENSIVE METABOLIC [id number] 07:08:00 Test Item Value Reference Range Comments TOTAL PROTEIN (BEAKER) 5.4 gm/dL 6.0-8.3 (test chim=512) ALBUMIN (BEAKER) (test 3.2 g/dL 3.5-5.0 rwwz=2001) ALKALINE PHOSPHATASE 104 U/L 40-150 (BEAKER) (test wiop=553) BILIRUBIN TOTAL (BEAKER) 0.8 mg/dL 0.2-1.2 (test euuz=075) SODIUM (BEAKER) (test 136 meq/L 136-145 toqz=338) POTASSIUM (BEAKER) (test 4.3 meq/L 3.5-5.1 amrv=077) CHLORIDE (BEAKER) (test 108 meq/L 98-107 plct=040) CO2 (BEAKER) (test 22 meq/L 22-29 svkd=709) BLOOD UREA NITROGEN 31 mg/dL 7-21 (BEAKER) (test tkfm=959) CREATININE (BEAKER) (test 1.26 mg/dL 0.57-1.25 hxts=867) GLUCOSE RANDOM (BEAKER) 262 mg/dL 70-105 (test hgnb=251) CALCIUM (BEAKER) (test 8.5 mg/dL 8.4-10.2 jnnh=605) AST (SGOT) (BEAKER) (test 20 U/L 5-34 uuzx=953) ALT (SGPT) (BEAKER) (test 10 U/L 6-55 zwje=737) EGFR (BEAKER) (test 43 mL/min/1.73 sq m ESTIMATED GFR IS NOT rofg=0882) ACCURATE CREATININE CLEARANCE IN PREDICTING GLOMERULAR FILTRATION RATE. ESTIMATED GFR IS NOT APPLICABLE FOR DIALYSIS PATIENTS. [id number] 07:07:00 Test Item Value Reference Range Comments PHOSPHORUS (BEAKER) (test nddj=875) 2.7 mg/dL 2.3-4.7 POCT-GLUCOSE [id number] 06:31:00 Test Item Value Reference Range Comments POC-GLUCOSE METER (BEAKER) 249 mg/dL 70-[address] [facility] [address] [facility] (test ilch=1867) [facility] [address] URINALYSIS W/ [id number] 06:17:00 Test Item Value Reference Range Comments COLOR (BEAKER) (test afbr=954) Yellow CLARITY (BEAKER) (test adem=972) Clear SPECIFIC GRAVITY UA (BEAKER) (test gtjz=747) 1.013 1.001-1.035 PH UA (BEAKER) (test psap=629) 5.0 5.0-8.0 PROTEIN UA (BEAKER) (test dngh=943) Negative Negative GLUCOSE UA (BEAKER) (test kbiy=966) 100 mg/dL Negative KETONES UA (BEAKER) (test mkce=509) Negative Negative BILIRUBIN UA (BEAKER) (test jxqt=370) Negative Negative BLOOD UA (BEAKER) (test zedu=133) Negative Negative NITRITE UA (BEAKER) (test ilox=476) Negative Negative LEUKOCYTE ESTERASE UA (BEAKER) (test euty=870) Large Negative UROBILINOGEN UA (BEAKER) (test uszm=779) 0.2 mg/dL 0.2-1.0 RBC UA (BEAKER) (test gufw=513) 2 /HPF WBC UA (BEAKER) (test hsos=476) 24 /HPF SQUAMOUS EPITHELIAL (BEAKER) (test fdeg=624) 14 /HPF HYALINE CASTS (BEAKER) (test xhrq=183) 3 /LPF SOURCE(BEAKER) (test cmpz=3228) Urine, Voided [id number] 05:53:00 Test Item Value Reference Range Comments PARTIAL THROMBOPLASTIN TIME (BEAKER) (test 20.1 seconds 22.5-36.0 rktw=669) CALCIUM, [id number] 05:50:00 Test Item Value Reference Range Comments CALCIUM IONIZED (BEAKER) (test mguw=811) 1.00 mmol/L 1.12-1.27 PH, BLOOD (BEAKER) (test hazy=8351) 7.43 PROTHROMBIN [id number] 04:54:00 Test Item Value Reference Range Comments PROTIME (BEAKER) (test bkdr=355) 13.8 seconds 11.7-14.7 INR (BEAKER) (test hbsm=086) 1.0 <=5.9 RECOMMENDED COUMADIN/WARFARIN INR THERAPY RANGESSTANDARD DOSE: 2.0 - 3.0 Includes: PROPHYLAXIS forvenous thrombosis, systemic embolization; TREATMENT for venous thrombosis and/or pulmonary embolus.HIGH RISK: Target INR is 2.5-3.5 for patients with mechanical heart valves.CREATININE, RANDOM [id number] 04: 48:00 Test Item Value Reference Range Comments CREATININE URINE (BEAKER) (test qbkg=829) 115.9 mg/dL Reference Range: No NormalsPROTEIN, RANDOM [id number] 04:48:00 Test Item Value Reference Range Comments PROTEIN, URINE (BEAKER) (test qqyc=4227) 12 mg/dL 0-14 CBC W/PLT COUNT & AUTO [id number] 04:30:00 Test Item Value Reference Range Comments WHITE BLOOD CELL COUNT (BEAKER) (test wvsw=956) 5.2 K/ L 3.5-10.5 RED BLOOD CELL COUNT (BEAKER) (test wfoy=378) 3.58 M/ L 3.93-5.22 HEMOGLOBIN (BEAKER) (test qhca=617) 9.8 GM/DL 11.2-15.7 HEMATOCRIT (BEAKER) (test eruo=013) 31.6 % 34.1-44.9 MEAN CORPUSCULAR VOLUME (BEAKER) (test wttn=823) 88.3 fL 79.4-94.8 MEAN CORPUSCULAR HEMOGLOBIN (BEAKER) (test 27.4 pg 25.6-32.2 omrv=946) MEAN CORPUSCULAR HEMOGLOBIN CONC (BEAKER) (test 31.0 GM/DL 32.2-35.5 amxq=204) RED CELL DISTRIBUTION WIDTH (BEAKER) (test 14.4 % 11.7-14.4 ldhu=474) PLATELET COUNT (BEAKER) (test ajyq=977) 173 K/CU MM 150-450 MEAN PLATELET VOLUME (BEAKER) (test kwel=506) 9.6 fL 9.4-12.3 NUCLEATED RED BLOOD CELLS (BEAKER) (test 0 /100 WBC 0-0 wrjp=644) NEUTROPHILS RELATIVE PERCENT (BEAKER) (test 67 % niop=812) LYMPHOCYTES RELATIVE PERCENT (BEAKER) (test 19 % jqzv=924) MONOCYTES RELATIVE PERCENT (BEAKER) (test 8 % bjvv=199) EOSINOPHILS RELATIVE PERCENT (BEAKER) (test 5 % rjlx=472) BASOPHILS RELATIVE PERCENT (BEAKER) (test 1 % dvgz=518) NEUTROPHILS ABSOLUTE COUNT (BEAKER) (test 3.43 K/ L 1.56-6.13 pcxo=189) LYMPHOCYTES ABSOLUTE COUNT (BEAKER) (test 0.98 K/ L 1.18-3.74 pdei=182) MONOCYTES ABSOLUTE COUNT (BEAKER) (test 0.42 K/ L 0.24-0.36 cgmw=070) EOSINOPHILS ABSOLUTE COUNT (BEAKER) (test 0.26 K/ L 0.04-0.36 gfxq=290) BASOPHILS ABSOLUTE COUNT (BEAKER) (test 0.04 K/ L 0.01-0.08 utif=790) IMMATURE GRANULOCYTES-RELATIVE PERCENT (BEAKER) 0 % 0-1 (test nhei=3623) U/S, ABDOMINAL, WITH [id number] 03:48:00Reason for exam:->TIPS workup , assess for [...] MDReport Verified Date/Time: 02/18/2019 03:48:21 Reading Location: [address] Neuro Reading Room Electronically signed by: Se SCHNEIDER 2018 03:48 AMPOCT-GLUCOSE [id number] 00:28:00 Test Item Value Reference Range Comments POC-GLUCOSE METER (BEAKER) 330 mg/dL 70-110 Will Repeat Test/TESTED AT (test zxvw=1141) [facility] [address] [facility] [address] BODY FLUID CELL COUNT WITH [id number] 18:02:00 Test Item Value Reference Range Comments APPEARANCE FLUID (BEAKER) (test hkce=959) Clear Clear COLOR FLUID (BEAKER) (test fqfp=011) Yellow Colorless, Straw RBC FLUID (BEAKER) (test jvet=058) 20 /cu mm <=1 ADJUSTED WBC FLUID (BEAKER) (test ydmd=3718) 50 /cu mm <=5 LINING CELLS (BEAKER) (test kxqx=1369) 0 /cu mm <=1 NEUTROPHILS FLUID (BEAKER) (test hakr=9248) 1 % LYMPHS FLUID (BEAKER) (test oesa=312) 38 % MONO/MACROPHAGE FLUID (BEAKER) (test szqu=852) 61 % EOSINOPHILS FLUID (BEAKER) (test kygj=587) 0 % BASO FLUID (BEAKER) (test rstz=949) 0 % CONTAINER BODY FLUID (BEAKER) (test ducz=6696) EDTA Tube U/S, [id number] 16:30:00limit volume to 8 LReason for exam:-> [...] MDReport Verified Date/Time: 02/17 16:30:42 Reading Location: [address] Ultrasound Reading Room POCT-GLUCOSE [id number] 09:48:00 Test Item Value Reference Range Comments POC-GLUCOSE METER (BEAKER) 198 mg/dL 70-110 TESTED AT [address] (test cprc=1370) [facility] [address] BASIC METABOLIC [id number] 06:30:00 Test Item Value Reference Range Comments SODIUM (BEAKER) (test 137 meq/L 136-145 ytok=646) POTASSIUM (BEAKER) (test 4.5 meq/L 3.5-5.1 mtaj=578) CHLORIDE (BEAKER) (test 107 meq/L 98-107 qcym=681) CO2 (BEAKER) (test 24 meq/L 22-29 aame=055) BLOOD UREA NITROGEN 41 mg/dL 7-21 (BEAKER) (test dvul=432) CREATININE (BEAKER) (test 1.48 mg/dL 0.57-1.25 gspl=967) GLUCOSE RANDOM (BEAKER) 200 mg/dL 70-105 (test nsvm=534) CALCIUM (BEAKER) (test 8.9 mg/dL 8.4-10.2 jvdh=714) EGFR (BEAKER) (test 36 mL/min/1.73 sq m ESTIMATED GFR IS NOT tfqe=8720) ACCURATE CREATININE CLEARANCE IN PREDICTING GLOMERULAR FILTRATION RATE. ESTIMATED GFR IS NOT APPLICABLE FOR DIALYSIS PATIENTS. POCT-GLUCOSE [id number] 17:31:00 Test Item Value Reference Range Comments POC-GLUCOSE METER (BEAKER) 165 mg/dL 70-[address] [facility] [address] [facility] (test xauf=4050) [facility] [address] U/S, [id number] 16:00:00Reason for exam:->ascites SOBFINAL REPORT PROCEDURE: Ultrasound-guided paracentesis. INDICATION: Ascites. DESCRIPTION: This paracentesis was performed by Lesley Parnell under the direct supervision of Thomas Hendrix. After obtaining informed written consent, ultrasound scan of the abdomen identified ascites in the right lower quadrant. The overlying skin was prepped and draped in the usual, sterile fashion andlocal 2% lidocaine anesthesia was administered. A 5 Moldovan catheter was advanced into the peritonealcavity and 6000 mL of clear yellow fluid was removed. The catheter was removed without immediate complication. Samples were sent for analysis. IMPRESSION: Uncomplicated ultrasound-guided paracentesis with 6000 mL fluid removed. Signed: Thomas Hendrix [facility] Verified Date/Time: 16:00:46 Reading Location: [address] Ultrasound Reading Room BODY FLUID CELL COUNT WITH [id number] 15:52:00 Test Item Value Reference Range Comments APPEARANCE FLUID (BEAKER) (test mwzy=807) Clear Clear COLOR FLUID (BEAKER) (test qste=216) Yellow Colorless, Straw RBC FLUID (BEAKER) (test gyjl=253) 10 /cu mm <=1 ADJUSTED WBC FLUID (BEAKER) (test bncj=5860) 80 /cu mm <=5 LINING CELLS (BEAKER) (test tpqa=9440) 0 /cu mm <=1 NEUTROPHILS FLUID (BEAKER) (test tmta=4876) 5 % LYMPHS FLUID (BEAKER) (test oghw=310) 35 % MONO/MACROPHAGE FLUID (BEAKER) (test pnhl=949) 59 % EOSINOPHILS FLUID (BEAKER) (test drah=558) 1 % BASO FLUID (BEAKER) (test eeul=802) 0 % CONTAINER BODY FLUID (BEAKER) (test xfpm=2237) EDTA Tube BASIC METABOLIC [id number] 07:28:00 Test Item Value Reference Range Comments SODIUM (BEAKER) (test 134 meq/L 136-145 dslv=716) POTASSIUM (BEAKER) (test 5.0 meq/L 3.5-5.1 dbrj=930) CHLORIDE (BEAKER) (test 107 meq/L 98-107 hagu=077) CO2 (BEAKER) (test 22 meq/L 22-29 eteo=176) BLOOD UREA NITROGEN 46 mg/dL 7-21 (BEAKER) (test wxoh=593) CREATININE (BEAKER) (test 1.61 mg/dL 0.57-1.25 anop=545) GLUCOSE RANDOM (BEAKER) 220 mg/dL 70-105 (test vodj=999) CALCIUM (BEAKER) (test 9.0 mg/dL 8.4-10.2 omkv=427) EGFR (BEAKER) (test 33 mL/min/1.73 sq m ESTIMATED GFR IS NOT hwpb=5788) ACCURATE CREATININE CLEARANCE IN PREDICTING GLOMERULAR FILTRATION RATE. ESTIMATED GFR IS NOT APPLICABLE FOR DIALYSIS PATIENTS. HEPATIC FUNCTION [id number] 07:28:00 Test Item Value Reference Range Comments TOTAL PROTEIN (BEAKER) (test kntw=274) 5.9 gm/dL 6.0-8.3 ALBUMIN (BEAKER) (test dxym=9877) 3.0 g/dL 3.5-5.0 BILIRUBIN TOTAL (BEAKER) (test gkhb=775) 0.6 mg/dL 0.2-1.2 BILIRUBIN DIRECT (BEAKER) (test szxn=664) 0.3 mg/dL 0.1-0.5 ALKALINE PHOSPHATASE (BEAKER) (test ripy=062) 154 U/L 40-150 AST (SGOT) (BEAKER) (test gnuh=004) 22 U/L 5-34 ALT (SGPT) (BEAKER) (test xxsx=397) 12 U/L 6-55 [id number] 07:27:00 Test Item Value Reference Range Comments MAGNESIUM (BEAKER) (test vjve=737) 2.2 mg/dL 1.6-2.6 CBC W/PLT COUNT & AUTO [id number] 07:06:00 Test Item Value Reference Range Comments WHITE BLOOD CELL COUNT (BEAKER) (test ofch=702) 6.2 K/ L 3.5-10.5 RED BLOOD CELL COUNT (BEAKER) (test isws=325) 3.62 M/ L 3.93-5.22 HEMOGLOBIN (BEAKER) (test jmuj=314) 9.8 GM/DL 11.2-15.7 HEMATOCRIT (BEAKER) (test oqoy=570) 31.4 % 34.1-44.9 MEAN CORPUSCULAR VOLUME (BEAKER) (test odhd=843) 86.7 fL 79.4-94.8 MEAN CORPUSCULAR HEMOGLOBIN (BEAKER) (test 27.1 pg 25.6-32.2 npnz=175) MEAN CORPUSCULAR HEMOGLOBIN CONC (BEAKER) (test 31.2 GM/DL 32.2-35.5 qwqf=821) RED CELL DISTRIBUTION WIDTH (BEAKER) (test 14.5 % 11.7-14.4 xajd=901) PLATELET COUNT (BEAKER) (test ullt=517) 198 K/CU MM 150-450 MEAN PLATELET VOLUME (BEAKER) (test pdcq=580) 9.8 fL 9.4-12.3 NUCLEATED RED BLOOD CELLS (BEAKER) (test 0 /100 WBC 0-0 mesv=995) NEUTROPHILS RELATIVE PERCENT (BEAKER) (test 64 % jwav=677) LYMPHOCYTES RELATIVE PERCENT (BEAKER) (test 22 % mbce=824) MONOCYTES RELATIVE PERCENT (BEAKER) (test 9 % cgrx=066) EOSINOPHILS RELATIVE PERCENT (BEAKER) (test 5 % larp=713) BASOPHILS RELATIVE PERCENT (BEAKER) (test 1 % ospx=991) NEUTROPHILS ABSOLUTE COUNT (BEAKER) (test 3.93 K/ L 1.56-6.13 jcyi=876) LYMPHOCYTES ABSOLUTE COUNT (BEAKER) (test 1.35 K/ L 1.18-3.74 wqfq=138) MONOCYTES ABSOLUTE COUNT (BEAKER) (test 0.53 K/ L 0.24-0.36 gslu=397) EOSINOPHILS ABSOLUTE COUNT (BEAKER) (test 0.28 K/ L 0.04-0.36 byyq=893) BASOPHILS ABSOLUTE COUNT (BEAKER) (test 0.05 K/ L 0.01-0.08 ilid=390) IMMATURE GRANULOCYTES-RELATIVE PERCENT (BEAKER) 1 % 0-1 (test smhc=0347) [id number] 06:49:00 Test Item Value Reference Range Comments PROTIME (BEAKER) (test ctoz=029) 13.4 seconds 11.7-14.7 INR (BEAKER) (test fxzo=631) 1.0 <=5.9 PARTIAL THROMBOPLASTIN TIME (BEAKER) (test 30.9 seconds 22.5-36.0 wetp=876) RECOMMENDED COUMADIN/WARFARIN INR THERAPY RANGESSTANDARD DOSE: 2.0 - 3.0 Includes: PROPHYLAXIS forvenous thrombosis, systemic embolization; TREATMENT for venous thrombosis and/or pulmonary embolus.HIGH RISK: Target INR is 2.5-3.5 for patients with mechanical heart valves.URINALYSIS W/ REFLEX URINE [id number] 05:32:00 Test Item Value Reference Range Comments COLOR (BEAKER) (test yiwd=075) Yellow CLARITY (BEAKER) (test gwem=012) Hazy SPECIFIC GRAVITY UA (BEAKER) (test eyus=696) 1.021 1.001-1.035 PH UA (BEAKER) (test ggat=175) 5.5 5.0-8.0 PROTEIN UA (BEAKER) (test yucs=602) 30 mg/dL Negative GLUCOSE UA (BEAKER) (test kfac=720) Negative Negative KETONES UA (BEAKER) (test jvmi=090) Negative Negative BILIRUBIN UA (BEAKER) (test nvnw=635) Negative Negative BLOOD UA (BEAKER) (test lvpl=841) Negative Negative NITRITE UA (BEAKER) (test iqxg=620) Negative Negative LEUKOCYTE ESTERASE UA (BEAKER) (test zvzp=268) Large Negative UROBILINOGEN UA (BEAKER) (test wgla=786) 2.0 mg/dL 0.2-1.0 RBC UA (BEAKER) (test tkcx=820) 7 /HPF WBC UA (BEAKER) (test pksp=227) 7 /HPF MUCUS (BEAKER) (test epvt=5096) Rare SQUAMOUS EPITHELIAL (BEAKER) (test pdvw=763) 6 /HPF HYALINE CASTS (BEAKER) (test gwbv=501) 40 /LPF SOURCE(BEAKER) (test qfxd=7386) POCT-GLUCOSE [id number] 05:00:00 Test Item Value Reference Range Comments POC-GLUCOSE METER (BEAKER) 227 mg/dL 70-[address] [facility] [address] [facility] (test bjyy=3960) [facility] [address] ALPHA FETOPROTEIN (AFP), TUMOR [id number] 15:55:00 Test Item Value Reference Range Comments ALPHA-FETOPROTEIN (BEAKER) (test ybpb=0784) 3.4 ng/mL <10.0 BASIC METABOLIC [id number] 15:40:00 Test Item Value Reference Range Comments SODIUM (BEAKER) (test 133 meq/L 136-145 wsxk=184) POTASSIUM (BEAKER) (test 4.8 meq/L 3.5-5.1 yfbd=157) CHLORIDE (BEAKER) (test 101 meq/L 98-107 muln=464) CO2 (BEAKER) (test 23 meq/L 22-29 exxt=054) BLOOD UREA NITROGEN 37 mg/dL 7-21 (BEAKER) (test webw=899) CREATININE (BEAKER) (test 2.17 mg/dL 0.57-1.25 hjre=547) GLUCOSE RANDOM (BEAKER) 191 mg/dL 70-105 (test lvjb=858) CALCIUM (BEAKER) (test 9.2 mg/dL 8.4-10.2 najb=173) EGFR (BEAKER) (test 23 mL/min/1.73 sq m ESTIMATED GFR IS NOT bmok=3122) ACCURATE CREATININE CLEARANCE IN PREDICTING GLOMERULAR FILTRATION RATE. ESTIMATED GFR IS NOT APPLICABLE FOR DIALYSIS PATIENTS. HEPATIC FUNCTION [id number] 15:38:00 Test Item Value Reference Range Comments TOTAL PROTEIN (BEAKER) (test fvab=226) 6.9 gm/dL 6.0-8.3 ALBUMIN (BEAKER) (test nsee=6407) 3.7 g/dL 3.5-5.0 BILIRUBIN TOTAL (BEAKER) (test banr=161) 0.8 mg/dL 0.2-1.2 BILIRUBIN DIRECT (BEAKER) (test qzqx=717) 0.3 mg/dL 0.1-0.5 ALKALINE PHOSPHATASE (BEAKER) (test zzqh=392) 95 U/L 40-150 AST (SGOT) (BEAKER) (test ukev=913) 24 U/L 5-34 ALT (SGPT) (BEAKER) (test kzof=599) 14 U/L 6-55 PROTHROMBIN [id number] 15:29:00 Test Item Value Reference Range Comments PROTIME (BEAKER) (test wvjd=506) 12.8 seconds 11.7-14.7 INR (BEAKER) (test fzsv=516) 1.0 <=5.9 RECOMMENDED COUMADIN/WARFARIN INR THERAPY RANGESSTANDARD DOSE: 2.0 - 3.0 Includes: PROPHYLAXIS forvenous thrombosis, systemic embolization; TREATMENT for venous thrombosis and/or pulmonary embolus.HIGH RISK: Target INR is 2.5-3.5 for patients with mechanical heart valves.CBC W/PLT COUNT & AUTO [id number] 15:17:00 Test Item Value Reference Range Comments WHITE BLOOD CELL COUNT (BEAKER) (test ngls=735) 7.8 K/ L 3.5-10.5 RED BLOOD CELL COUNT (BEAKER) (test ccpg=648) 4.49 M/ L 3.93-5.22 HEMOGLOBIN (BEAKER) (test cwen=893) 12.4 GM/DL 11.2-15.7 HEMATOCRIT (BEAKER) (test dpul=493) 39.1 % 34.1-44.9 MEAN CORPUSCULAR VOLUME (BEAKER) (test qnpv=325) 87.1 fL 79.4-94.8 MEAN CORPUSCULAR HEMOGLOBIN (BEAKER) (test 27.6 pg 25.6-32.2 cyan=800) MEAN CORPUSCULAR HEMOGLOBIN CONC (BEAKER) (test 31.7 GM/DL 32.2-35.5 eorj=208) RED CELL DISTRIBUTION WIDTH (BEAKER) (test 14.0 % 11.7-14.4 nncq=183) PLATELET COUNT (BEAKER) (test tkmg=257) 196 K/CU MM 150-450 MEAN PLATELET VOLUME (BEAKER) (test vais=391) 9.9 fL 9.4-12.3 NUCLEATED RED BLOOD CELLS (BEAKER) (test 0 /100 WBC 0-0 mgti=287) NEUTROPHILS RELATIVE PERCENT (BEAKER) (test 72 % rtzs=334) LYMPHOCYTES RELATIVE PERCENT (BEAKER) (test 18 % krhc=814) MONOCYTES RELATIVE PERCENT (BEAKER) (test 6 % vfdh=554) EOSINOPHILS RELATIVE PERCENT (BEAKER) (test 4 % rxuv=137) BASOPHILS RELATIVE PERCENT (BEAKER) (test 1 % rljj=360) NEUTROPHILS ABSOLUTE COUNT (BEAKER) (test 5.62 K/ L 1.56-6.13 ovoa=598) LYMPHOCYTES ABSOLUTE COUNT (BEAKER) (test 1.37 K/ L 1.18-3.74 aebv=447) MONOCYTES ABSOLUTE COUNT (BEAKER) (test 0.43 K/ L 0.24-0.36 aemn=367) EOSINOPHILS ABSOLUTE COUNT (BEAKER) (test 0.28 K/ L 0.04-0.36 bdwg=134) BASOPHILS ABSOLUTE COUNT (BEAKER) (test 0.07 K/ L 0.01-0.08 irwh=610) IMMATURE GRANULOCYTES-RELATIVE PERCENT (BEAKER) 0 % 0-1 (test wxec=8564) ANTI-MITOCHONDRIAL AB, REFLEX TO [id number] 08:36:00 Test Item Value Reference Range Comments SCAN RESULT (test [id number]=[id number]) OSMOLALITY, [id number] 10:30:00 Test Item Value Reference Range Comments OSMOLALITY, SERUM (BEAKER) (test ztwo=018) 301 mOsm/kg 275-295 POCT-GLUCOSE [id number] 08:26:00 Test Item Value Reference Range Comments POC-GLUCOSE METER (BEAKER) 243 mg/dL 70-110 TESTED AT [address] (test efoo=1194) [facility] [address] COMPREHENSIVE METABOLIC [id number] 08:05:00 Test Item Value Reference Range Comments TOTAL PROTEIN (BEAKER) 5.5 gm/dL 6.0-8.3 (test wips=249) ALBUMIN (BEAKER) (test 3.2 g/dL 3.5-5.0 cdpw=9826) ALKALINE PHOSPHATASE 75 U/L 40-150 (BEAKER) (test lusf=546) BILIRUBIN TOTAL (BEAKER) 0.9 mg/dL 0.2-1.2 (test wibw=178) SODIUM (BEAKER) (test 132 meq/L 136-145 xhhw=915) POTASSIUM (BEAKER) (test 4.3 meq/L 3.5-5.1 xtlt=038) CHLORIDE (BEAKER) (test 101 meq/L 98-107 hhbr=187) CO2 (BEAKER) (test 25 meq/L 22-29 dpre=061) BLOOD UREA NITROGEN 45 mg/dL 7-21 (BEAKER) (test mexg=855) CREATININE (BEAKER) (test 1.89 mg/dL 0.57-1.25 vmft=394) GLUCOSE RANDOM (BEAKER) 241 mg/dL 70-105 (test zitv=803) CALCIUM (BEAKER) (test 8.6 mg/dL 8.4-10.2 thyq=017) AST (SGOT) (BEAKER) (test 19 U/L 5-34 nrqd=996) ALT (SGPT) (BEAKER) (test 10 U/L 6-55 txge=121) EGFR (BEAKER) (test 27 mL/min/1.73 sq m ESTIMATED GFR IS NOT gymh=7690) ACCURATE CREATININE CLEARANCE IN PREDICTING GLOMERULAR FILTRATION RATE. ESTIMATED GFR IS NOT APPLICABLE FOR DIALYSIS PATIENTS. [id number] 08:02:00 Test Item Value Reference Range Comments PHOSPHORUS (BEAKER) (test urov=359) 3.6 mg/dL 2.3-4.7 [id number] 08:02:00 Test Item Value Reference Range Comments MAGNESIUM (BEAKER) (test pfsa=181) 2.0 mg/dL 1.6-2.6 CBC W/PLT COUNT & AUTO [id number] 05:40:00 Test Item Value Reference Range Comments WHITE BLOOD CELL COUNT (BEAKER) (test acdx=177) 5.7 K/ L 3.5-10.5 RED BLOOD CELL COUNT (BEAKER) (test exyl=362) 3.76 M/ L 3.93-5.22 HEMOGLOBIN (BEAKER) (test pnfc=849) 10.6 GM/DL 11.2-15.7 HEMATOCRIT (BEAKER) (test rkmw=663) 32.9 % 34.1-44.9 MEAN CORPUSCULAR VOLUME (BEAKER) (test mcfl=313) 87.5 fL 79.4-94.8 MEAN CORPUSCULAR HEMOGLOBIN (BEAKER) (test 28.2 pg 25.6-32.2 qldn=361) MEAN CORPUSCULAR HEMOGLOBIN CONC (BEAKER) (test 32.2 GM/DL 32.2-35.5 kggm=100) RED CELL DISTRIBUTION WIDTH (BEAKER) (test 14.2 % 11.7-14.4 efcr=576) PLATELET COUNT (BEAKER) (test nydq=063) 142 K/CU MM 150-450 MEAN PLATELET VOLUME (BEAKER) (test zbjm=064) 9.8 fL 9.4-12.3 NUCLEATED RED BLOOD CELLS (BEAKER) (test 0 /100 WBC 0-0 zpzd=463) NEUTROPHILS RELATIVE PERCENT (BEAKER) (test 70 % whlu=126) LYMPHOCYTES RELATIVE PERCENT (BEAKER) (test 19 % pxaf=670) MONOCYTES RELATIVE PERCENT (BEAKER) (test 7 % hknh=944) EOSINOPHILS RELATIVE PERCENT (BEAKER) (test 3 % bqlr=384) BASOPHILS RELATIVE PERCENT (BEAKER) (test 1 % ksba=274) NEUTROPHILS ABSOLUTE COUNT (BEAKER) (test 3.99 K/ L 1.56-6.13 rqhr=242) LYMPHOCYTES ABSOLUTE COUNT (BEAKER) (test 1.05 K/ L 1.18-3.74 lvje=645) MONOCYTES ABSOLUTE COUNT (BEAKER) (test 0.40 K/ L 0.24-0.36 dney=753) EOSINOPHILS ABSOLUTE COUNT (BEAKER) (test 0.16 K/ L 0.04-0.36 psxu=161) BASOPHILS ABSOLUTE COUNT (BEAKER) (test 0.04 K/ L 0.01-0.08 ecqa=506) IMMATURE GRANULOCYTES-RELATIVE PERCENT (BEAKER) 0 % 0-1 (test dvwe=9580) CALCIUM, [id number] 05:17:00 Test Item Value Reference Range Comments CALCIUM IONIZED (BEAKER) (test otek=925) 1.06 mmol/L 1.12-1.27 PH, BLOOD (BEAKER) (test pdmp=4854) 7.41 U/S, RENAL, [id number] 03:59:00Reason for exam:->HEMALATHA/CKDShould this be performed at [...] Wilson Verified Date/Time: 11/24/2018 03:59:04 Reading Location: [address] Transitional Reading Room TROPONIN [id number] 23:19:00 Test Item Value Reference Range Comments TROPONIN I (BEAKER) (test cxrg=290) < ng/mL 0.00-0.03 Troponin I (TnI) levels [...] acidosis, acute neurological disease, and persistent tachyarrhythmia.POCT-GLUCOSE [id number] 21:12:00 Test Item Value Reference Range Comments POC-GLUCOSE METER (BEAKER) 277 mg/dL 70-110 TESTED AT [address] (test pzlp=4053) [facility] [address] PROTEIN, RANDOM [id number] 20:11:00 Test Item Value Reference Range Comments PROTEIN, URINE (BEAKER) (test loul=6810) 10 mg/dL 0-14 SODIUM, RANDOM [id number] 20:05:00 Test Item Value Reference Range Comments SODIUM URINE (BEAKER) (test fxqv=601) < meq/L Reference Range: No NormalsPOCT-GLUCOSE [id number] 17:28:00 Test Item Value Reference Range Comments POC-GLUCOSE METER (BEAKER) 291 mg/dL 70-110 TESTED AT [address] (test uald=6087) [facility] [address] POCT-GLUCOSE [id number] 14:02:00 Test Item Value Reference Range Comments POC-GLUCOSE METER (BEAKER) 148 mg/dL 70-[address] [facility] [address] [facility] (test acpt=8993) [facility] [id number] URINALYSIS W/ [id number] 13:32:00 Test Item Value Reference Range Comments COLOR (BEAKER) (test uuuw=715) Yellow CLARITY (BEAKER) (test qnny=990) Clear SPECIFIC GRAVITY UA (BEAKER) (test 1.015 1.001-1.035 sfeq=803) PH UA (BEAKER) (test hzeo=229) 5.0 5.0-8.0 PROTEIN UA (BEAKER) (test haaj=224) Negative Negative GLUCOSE UA (BEAKER) (test sghh=101) Negative Negative KETONES UA (BEAKER) (test qbve=796) Negative Negative BILIRUBIN UA (BEAKER) (test fmps=914) Negative Negative BLOOD UA (BEAKER) (test clll=908) Negative Negative NITRITE UA (BEAKER) (test pffo=112) Negative Negative LEUKOCYTE ESTERASE UA (BEAKER) (test Negative Negative ghrg=985) UROBILINOGEN UA (BEAKER) (test nmzi=025) 0.2 mg/dL 0.2-1.0 RBC UA (BEAKER) (test lmbu=849) < /HPF WBC UA (BEAKER) (test mlvc=507) 2 /HPF BACTERIA (BEAKER) (test gqbz=654) Occasional SQUAMOUS EPITHELIAL (BEAKER) (test 19 /HPF nbuo=695) HYALINE CASTS (BEAKER) (test vjlp=221) 5 /LPF AMORPHOUS CRYSTALS (BEAKER) (test Occasional fsny=5038) SOURCE(BEAKER) (test nlkv=2582) Urine, Clean Catch U/S, ABDOMINAL, [id number] 13:29:00Abdomen limited area? Add comment if clarification [...] Valles Verified Date/Time: 11/23/2018 13:29:13 Reading Location: [address] Transitional Reading Room U/S, [id number] 13:01:00Reason for exam:->Therapeutic paracentesisFINAL REPORT Paracentesis dated 11/23/2018 Procedure: Ultrasound-guided paracentesis. Preprocedure diagnosis: Ascites Postprocedure diagnosis: Ascites Conscious sedation: None. Radiologist: Giovanni Haas M.D. Frame Fixer: None Anesthesia: 1% Xylocaine mixed with sodium bicarbonate local anesthesia. Technique: After obtaining informed consent, ultrasound-guided paracentesis was performed under usual sterile technique. Using a 5 bahamian drainage catheter , puncture was made in the right lower quadrant abdomen. Approximately 16,200 cc of serous fluid was removed. Patient tolerated the procedure well without complication. Complication: None Graft/Implant: None Estimated Blood Loss: None Impression: Ultrasound-guided paracentesis. Signed: Giovanni Haas Verified Date/Time: 11/23/2018 13:01:25 Reading Location: [facility] [id number] Ortho Consult Reading Room Electronically signedby: GIOVANNI HAAS M.D. on 2018 01:01 PMCBC W/PLT COUNT & AUTO [id number] 08:55:00 Test Item Value Reference Range Comments WHITE BLOOD CELL COUNT (BEAKER) (test vxeo=249) 5.7 K/ L 3.5-10.5 RED BLOOD CELL COUNT (BEAKER) (test lffz=105) 3.72 M/ L 3.93-5.22 HEMOGLOBIN (BEAKER) (test ndty=868) 10.5 GM/DL 11.2-15.7 HEMATOCRIT (BEAKER) (test kzcb=879) 32.5 % 34.1-44.9 MEAN CORPUSCULAR VOLUME (BEAKER) (test ckeb=261) 87.4 fL 79.4-94.8 MEAN CORPUSCULAR HEMOGLOBIN (BEAKER) (test 28.2 pg 25.6-32.2 jeuf=547) MEAN CORPUSCULAR HEMOGLOBIN CONC (BEAKER) (test 32.3 GM/DL 32.2-35.5 hxav=092) RED CELL DISTRIBUTION WIDTH (BEAKER) (test 14.5 % 11.7-14.4 bkyn=580) PLATELET COUNT (BEAKER) (test bxxn=631) 148 K/CU MM 150-450 MEAN PLATELET VOLUME (BEAKER) (test mbaw=301) 9.4 fL 9.4-12.3 NUCLEATED RED BLOOD CELLS (BEAKER) (test 0 /100 WBC 0-0 wyqs=498) NEUTROPHILS RELATIVE PERCENT (BEAKER) (test 63 % dsaw=584) LYMPHOCYTES RELATIVE PERCENT (BEAKER) (test 23 % jjrx=200) MONOCYTES RELATIVE PERCENT (BEAKER) (test 8 % vtjs=701) EOSINOPHILS RELATIVE PERCENT (BEAKER) (test 5 % dznn=475) BASOPHILS RELATIVE PERCENT (BEAKER) (test 1 % lpri=447) NEUTROPHILS ABSOLUTE COUNT (BEAKER) (test 3.61 K/ L 1.56-6.13 kzxi=609) LYMPHOCYTES ABSOLUTE COUNT (BEAKER) (test 1.29 K/ L 1.18-3.74 cvbn=429) MONOCYTES ABSOLUTE COUNT (BEAKER) (test 0.47 K/ L 0.24-0.36 cvbm=631) EOSINOPHILS ABSOLUTE COUNT (BEAKER) (test 0.28 K/ L 0.04-0.36 qwqb=738) BASOPHILS ABSOLUTE COUNT (BEAKER) (test 0.05 K/ L 0.01-0.08 qbhy=858) IMMATURE GRANULOCYTES-RELATIVE PERCENT (BEAKER) 0 % 0-1 (test mgyw=3848) POCT-GLUCOSE [id number] 07:43:00 Test Item Value Reference Range Comments POC-GLUCOSE METER (BEAKER) 196 mg/dL 70-[address] [facility] [address] [facility] (test aaxx=5063) [facility] [address] [id number] 06:53:00 Test Item Value Reference Range Comments FERRITIN (BEAKER) (test ttcv=693) 52 ng/mL 5-275 HEPATITIS B [id number] 06:21:00 Test Item Value Reference Range Comments HEPATITIS B CORE TOTAL ANTIBODY (BEAKER) (test Nonreactive Nonreactive giuf=793) HEPATITIS B SURFACE ANTIBODY (BEAKER) (test < mIU/mL <8.0 xxgu=720) HEPATITIS B SURFACE ANTIGEN (2) (BEAKER) (test Nonreactive Nonreactive zuqn=2142) HEPATITIS C [id number] 06:20:00 Test Item Value Reference Range Comments HEPATITIS C ANTIBODY (BEAKER) (test rhdd=254) Nonreactive Nonreactive HEPATITIS A [id number] 06:20:00 Test Item Value Reference Range Comments HEPATITIS A IGM ANTIBODY (BEAKER) (test Nonreactive Nonreactive kund=737) HEPATITIS A IGG ANTIBODY (BEAKER) (test Nonreactive Nonreactive yjpr=0966) ALPHA FETOPROTEIN (AFP), TUMOR [id number] 06:14:00 Test Item Value Reference Range Comments ALPHA-FETOPROTEIN (BEAKER) (test zcdd=4572) 2.1 ng/mL <10.0 COMPREHENSIVE METABOLIC [id number] 06:01:00 Test Item Value Reference Range Comments TOTAL PROTEIN (BEAKER) 5.9 gm/dL 6.0-8.3 (test kjoc=434) ALBUMIN (BEAKER) (test 2.9 g/dL 3.5-5.0 ufsa=5724) ALKALINE PHOSPHATASE 96 U/L 40-150 (BEAKER) (test bpta=317) BILIRUBIN TOTAL (BEAKER) 0.5 mg/dL 0.2-1.2 (test wbmc=705) SODIUM (BEAKER) (test 132 meq/L 136-145 cqxd=962) POTASSIUM (BEAKER) (test 4.3 meq/L 3.5-5.1 teoa=913) CHLORIDE (BEAKER) (test 100 meq/L 98-107 cbdo=634) CO2 (BEAKER) (test 26 meq/L 22-29 nsqy=338) BLOOD UREA NITROGEN 50 mg/dL 7-21 (BEAKER) (test hhip=639) CREATININE (BEAKER) (test 2.27 mg/dL 0.57-1.25 wwdz=612) GLUCOSE RANDOM (BEAKER) 219 mg/dL 70-105 (test nnzg=307) CALCIUM (BEAKER) (test 8.8 mg/dL 8.4-10.2 bgih=059) AST (SGOT) (BEAKER) (test 22 U/L 5-34 xueu=219) ALT (SGPT) (BEAKER) (test 15 U/L 6-55 uyfu=753) EGFR (BEAKER) (test 22 mL/min/1.73 sq m ESTIMATED GFR IS NOT hgop=4685) ACCURATE CREATININE CLEARANCE IN PREDICTING GLOMERULAR FILTRATION RATE. ESTIMATED GFR IS NOT APPLICABLE FOR DIALYSIS PATIENTS. IRON, TIBC, % SAT. (WITHOUT FERRITIN)2018-11-23 05:55:00 Test Item Value Reference Range Comments IRON (BEAKER) (test szae=696) 46.0 ug/dL 40.0-160.0 TOTAL IRON BINDING CAPACITY (BEAKER) (test 269 ug/dL 250-450 kkmm=576) IRON % SATURATION (2) (BEAKER) (test dnuj=5576) 17 % 20-55 [id number] 05:54:00 Test Item Value Reference Range Comments ALPHA-1 ANTITRYPSIN (BEAKER) (test iads=391) 202.70 mg/dL 90.00-200.00 COMPREHENSIVE METABOLIC [id number] 00:16:00 Test Item Value Reference Range Comments TOTAL PROTEIN (BEAKER) 6.8 gm/dL 6.0-8.3 (test akrd=244) ALBUMIN (BEAKER) (test 3.3 g/dL 3.5-5.0 clix=8648) ALKALINE PHOSPHATASE 114 U/L 40-150 (BEAKER) (test ncga=296) BILIRUBIN TOTAL (BEAKER) 0.6 mg/dL 0.2-1.2 (test pbbf=126) SODIUM (BEAKER) (test 130 meq/L 136-145 kuko=592) POTASSIUM (BEAKER) (test 4.4 meq/L 3.5-5.1 sxac=333) CHLORIDE (BEAKER) (test 99 meq/L 98-107 gvrw=207) CO2 (BEAKER) (test 22 meq/L 22-29 xplf=747) BLOOD UREA NITROGEN 46 mg/dL 7-21 (BEAKER) (test puog=999) CREATININE (BEAKER) (test 2.40 mg/dL 0.57-1.25 oixr=149) GLUCOSE RANDOM (BEAKER) 153 mg/dL 70-105 (test ccem=071) CALCIUM (BEAKER) (test 9.1 mg/dL 8.4-10.2 apat=191) AST (SGOT) (BEAKER) (test 25 U/L 5-34 wyjj=810) ALT (SGPT) (BEAKER) (test 17 U/L 6-55 rtjp=081) EGFR (BEAKER) (test 21 mL/min/1.73 sq m ESTIMATED GFR IS NOT gout=5938) ACCURATE CREATININE CLEARANCE IN PREDICTING GLOMERULAR FILTRATION RATE. ESTIMATED GFR IS NOT APPLICABLE FOR DIALYSIS PATIENTS. [id number] 23:52:00 Test Item Value Reference Range Comments PROTIME (BEAKER) (test dfkv=882) 13.3 seconds 11.7-14.7 INR (BEAKER) (test xxxq=876) 1.0 <=5.9 PARTIAL THROMBOPLASTIN TIME (BEAKER) (test 26.9 seconds 22.5-36.0 mfwc=319) RECOMMENDED COUMADIN/WARFARIN INR THERAPY RANGESSTANDARD DOSE: 2.0 - 3.0 Includes: PROPHYLAXIS forvenous thrombosis, systemic embolization; TREATMENT for venous thrombosis and/or pulmonary embolus.HIGH RISK: Target INR is 2.5-3.5 for patients with mechanical heart valves.POCT-GLUCOSE [id number] 21:25:00 Test Item Value Reference Range Comments POC-GLUCOSE METER (BEAKER) 178 mg/dL 70-[address] [facility] [address] [facility] (test fmto=4550) [facility] [address]
[2019-10-31 18:54] LABS: Absolute Lymphocytes (CBC) 1.1 K/uL (0.7-4.9); Basophils % 1.2 % (0-1.3); Hematocrit 24.3 % (36.0-45.0); Lymphocytes % 21.7 % (15.3-44.8); MPV 7.8 fL (7.6-11.3); RBC Red Blood Cell Count 2.95 M/uL (3.86-4.86)
[2019-10-31 19:08] LABS: Protime INR 1.02
[2019-10-31 19:16] LABS: Albumin 3.2 g/dL (3.4-5.0); Bilirubin Direct 0.6 mg/dL (0-0.2); Bilirubin Total 1.7 mg/dL (0.2-1.0); Magnesium 2.5 mg/dL (1.8-2.4); Potassium 4.6 mmol/L (3.5-5.1); Protein, Total 6.8 g/dL (6.4-8.2); Troponin (Emerg Dept Use Only) 0.04 ng/mL (0.0-0.045)
--- NOTE | 2019-10-31 19:40 | RAD REPORT ---
EXAM DESCRIPTION: CT - CTHCSPWOC - 10/31/2019 7:09 pm CLINICAL HISTORY: Fall, head and neck injury COMPARISON: None. TECHNIQUE: Axial 5 mm thick images of the head were obtained. Axial 2 mm thick images of the cervic al spine were obtained with sagittal and coronal reconstruction images generated and reviewed. All CT scans are performed using dose optimization technique as appropriate and may include automated exposure control or mA/KV adjustment according to patient size. FINDINGS: No intracranial hemorrhage, mass, edema or acute intracranial finding. No suspicion for acute infarct ion. No extra-axial fluid collections. No acute mastoid air cell or paranasal sinus finding. No globe or orbit abnormality seen. Minimal atrophy changes are present. Mild chronic ischemic change in the white matter. Cervical bodies are normal in height. No subluxation abnormalities. No disk space narrowing. No fract ure or acute bony abnormality. No paraspinal mass or hematoma. IMPRESSION: Negative CT head examination for acute or significant finding. Minimal atrophy and mild chronic ischemic change. Negative CT cervical spine examination for acute or significant finding.
--- NOTE | 2019-10-31 19:41 | RAD REPORT ---
EXAM DESCRIPTION: RAD - Chest Single View - 10/31/2019 6:43 pm CLINICAL HISTORY: Fall, chest pain COMPARISON: October 02 TECHNIQUE: AP portable chest image was obtained 1840 hours . FINDINGS: Lung volumes are very low. No peripheral mass or consolidation. Central vasculature and isah ng markings are accentuated by large body habitus, portable technique and shallow inspiration. Heart and vasculature are normal. No measurable pleural effusion and no pneumothorax. No acute bony abnorma lity seen. No acute aortic findings suspected. IMPRESSION: Limited portable study without acute cardiopulmonary finding. Mild failure or volume overload can be masked by above detailed limitations.
[2019-10-31] MEDS ORDERED: LACTULOSE 20 GM/30 ML UCUP ONE (20:25)
--- NOTE | 2019-10-31 22:06 | ER ---
Nurse's Notes [facility] Name: Dee Maciel Age: 59 yrs Sex: Female : 1960 Arrival Date: 10/31/2019 Time: 17:37 Bed 8 Private MD: Art Pollock E Diagnosis: Altered mental status, unspecified;Hepatic Encephalopathy Presentation: 10/31 17:57 Presenting complaint: states: patient states "feeling tired", only providing sr5 vague information regards to s/s. states she's had several falls in the last few days and would normally be able to provide clearer answers. Pt reports "yes to pain" but does not indicate where. Oriented to person, place, time, situation. Clear speech. Transition of care: patient was not received from another setting of care. Onset of symptoms was October 29, 2019. Risk Assessment: Do you want to hurt yourself or someone else? Patient reports no desire to harm self or others. Initial Sepsis Screen: Does the patient meet any 2 criteria?. Care prior to arrival: None. 17:57 Method Of Arrival: Wheelchair sr5 17:57 Acuity: ASAF 2 sr5 22:16 Initial Sepsis Screen: Does the patient have a suspected source of infection? No. lp1 Patient's initial sepsis screen is negative. Triage Assessment: 18:01 General: Appears in no apparent distress. Behavior is cooperative. Pain: Complains of sr5 pain in initially vague about pain locations, now says neck hurts "throbbing". Neuro: Level of Consciousness is awake, alert, obeys commands, Oriented to person, place, time, situation, Speech is normal. Cardiovascular: Patient's skin is warm and dry. Respiratory: Respiratory effort is even, unlabored. Historical: - Allergies: 18:01 No Known Allergies; sr5 - Home Meds: 22:17 basagler [Active]; gabapentin 100 mg Oral cap 2 caps nightly [Active]; lactulose 10 lp1 gram/15 mL (15 mL) Oral soln 30 mL twice a day [Active]; levothyroxine 200 mcg tab 1 tab once daily [Active]; Novolog 100 unit/mL Sub-Q soln [Active]; omeprazole 20 mg Oral cpDR 1 cap once daily [Active]; sertraline 50 mg Oral tab 1 tab once daily [Active]; simvastatin 20 mg Oral tab 1 tab once daily [Active]; spironolactone 50 mg Oral tab 1 tab once daily [Active]; torsemide 20 mg Oral tab 1 tab once daily [Active]; - PMHx: 18:01 Anxiety; Depression; Diabetes - NIDDM; Hypothyroidism; kidney problems; [place]NN liver; sr5 - PSHx: 18:01 paracentesis; sr5 - Immunization history:: Adult Immunizations up to date. - Social history:: Smoking status: Patient/guardian denies using tobacco. - Ebola Screening: : No symptoms or risks identified at this time. Screenin:40 Abuse screen: Denies threats or abuse. Denies injuries from another. Nutritional sg screening: No deficits noted. Tuberculosis screening: No symptoms or risk factors identified. Never had TB. Fall Risk None identified. Assessment: 18:40 General: Appears in no apparent distress. well groomed, well developed, well nourished, sg Behavior is calm, cooperative, appropriate for age. Pain: Complains of pain in pain all over Quality of pain is described as aching. Neuro: Level of Consciousness is awake, alert, obeys commands, Oriented to person, place, Speech is normal. Cardiovascular: Capillary refill is sluggish in bilateral fingers Patient's skin is warm and dry. Chest pain is denied. Respiratory: Airway is patent Respiratory effort is even, unlabored, Respiratory pattern is regular, symmetrical. GI: Abdomen is round non-distended, obese, bruised on right lower quadrant. : No signs and/or symptoms were reported regarding the genitourinary system. EENT: No signs and/or symptoms were reported regarding the EENT system. Derm: Skin is pink, warm \\T\\ dry. Musculoskeletal: Circulation, motion, and sensation intact. Range of motion: intact in all extremities. 19:06 Reassessment: Patient in CT. lp1 19:25 Reassessment: Patient appears in no apparent distress at this time. Patient returned lp1 from CT. General: Behavior is drowsy. Neuro: Level of Consciousness is Patient falling asleep while speaking to her. Oriented to person, place. Respiratory: Respiratory effort is even, Breath sounds are diminished bilaterally. GI: Abdomen is obese, site clean and dressing intact to right side of abdomen from paracentesis per . Derm: Skin is intact, Skin is dry, Skin is normal. 19:30 Reassessment: Patient noted to be 89% on RA while sleeping; Place on 2L NC, O2 at 97%. lp1 20:30 Reassessment: Patient appears in no apparent distress at this time. Patient and/or lp1 family updated on plan of care and expected duration. Pain level reassessed. Patient resting; Provider at bedside to discuss results with patient. 21:30 Reassessment: Patient appears in no apparent distress at this time. No changes from 1 previously documented assessment. Patient and/or family updated on plan of care and expected duration. Pain level reassessed. 22:00 Reassessment: Patient and aware of pending transfer. lp1 22:39 Reassessment: Report given to ALEXI Valencia at [facility] for patient transfer to [place] [address]. 23:40 Reassessment: Patient appears in no apparent distress at this time. Assisted patient to [address] at this time, urine noted. 11/01 00:01 Reassessment: [place] at bedside for transfer. lp1 Vital Signs: 10/31 18:01 BP 107 / 52; Pulse 74; Resp 20; Temp 97.6(O); Pulse Ox 95% on R/A; Weight 122.02 kg sr5 (R); Height 5 ft. 4 in. (162.56 cm); Pain 3/10; 19:20 BP 125 / 67; Pulse 74; Resp 14; Pulse Ox 92% on R/A; lp1 20:15 BP 130 / 65; Pulse 75; Resp 19; Pulse Ox 97% on 2 lpm NC; lp1 21:00 BP 110 / 66; Pulse 74; Resp 15; Pulse Ox 97% on 2 lpm NC; lp1 22:00 BP 117 / 56; Pulse 74; Resp 16; Temp 97.6(O); Pulse Ox 97% on 2 lpm NC; lp1 23:00 BP 118 / 61; Pulse 76; Resp 13; Pulse Ox 97% on 2 lpm NC; lp1 23:45 BP 136 / 74; Pulse 75; Resp 14; Pulse Ox 96% on R/A; lp1 18:01 Body Mass Index 46.17 (122.02 kg, 162.56 cm) sr5 ED Course: 17:37 Patient arrived in ED. ag5 17:37 Art Pollock MD is Private Physician. ag5 18:00 Triage completed. sr5 18:01 Arm band placed on. sr5 18:07 Jhony Jaramillo FNP-C is [facility]. la1 18:08 Maynor Lo MD is Attending Physician. la1 18:30 Initial lab(s) drawn, by me, sent to lab. First set of blood cultures drawn by me. sg 18:35 Inserted saline lock: 20 gauge in right antecubital area, using aseptic technique. sg Blood collected. 18:40 XRAY Chest (1 view) In Process Unspecified. EDMS 18:45 Second set of blood cultures drawn by me. sg 18:47 Jd Rodgers, RN is Primary Nurse. sg 18:[address] via stretcher. nj 19:09 CT completed. Patient tolerated procedure well. Patient moved back from CT. bq 19:10 CT Head C Spine In Process Unspecified. EDMS 19:20 Patient has correct armband on for positive identification. Bed in low position. Call lp1 light in reach. Side rails up X2. cardiac monitor technician on. Pulse ox on. NIBP on. 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 lp1 23:51 Urine Dipstick--Ancillary (enter results) Sent. ds4 11/01 00:01 Patient transferred, IV remains in place. lp1 Administered Medications: 10/31 20:40 Drug: Lactulose 30 grams Volume: 45 ml; Route: PO; lp1 21:30 Follow up: Response: No adverse reaction lp1 Point of Care Testing: Guaiac: 20:35 Stool Guaiac: Negative; Stool Hemoccult Control: Pass; lp1 Outcome: 22:05 ER care complete, transfer ordered by . la1 22:16 Condition: stable lp1 22:16 Instructed on the need for transfer. 11/01 00:02 Transferred by ground EMS to [facility], Transfer form completed. lp1 X-rays sent w/ patient. 00:03 Patient left the ED. lp1 Signatures: Dispatcher [employer] EDMS Jd Rodgers, RN ALEXI sg Amy Gallo bq Micheline Prince RN RN lp1 Mickey Peter ds4 Jhony Jaramillo FNP-C FNP-Cla1 Vega Leahy, RN RN sr5 Austin Jeronimo, Hermann ag5
--- NOTE | 2019-10-31 22:07 | EDPHYS ---
Physician Documentation [facility] Name: Dee Maciel Age: 59 yrs Sex: Female : 1960 Arrival Date: 10/31/2019 Time: 17:37 Bed 8 Private MD: Art Pollock E ED Physician Maynor Lo HPI: 10/31 18:17 This 59 yrs old Female presents to ER via Wheelchair with complaints of Tired.la1 18:20 This 59 yrs old Female presents to ER via Wheelchair with complaints of Tired.la1 18:20 For the last three days pt reports not feeling well, "just not with it, feeling tired", la1 also had a paracentesis two days ago. Pt is currently oriented x 4 but a little slow to respond.. Onset: The symptoms/episode began/occurred 3 day(s) ago. Severity of symptoms: At their worst the symptoms were moderate in the emergency department the symptoms are unchanged. The patient has experienced similar episodes in the past. Pt also reports new rash to feet. Historical: - Allergies: 18:01 No Known Allergies; sr5 - Home Meds: 22:17 basagler [Active]; gabapentin 100 mg Oral cap 2 caps nightly [Active]; lactulose 10 lp1 gram/15 mL (15 mL) Oral soln 30 mL twice a day [Active]; levothyroxine 200 mcg tab 1 tab once daily [Active]; Novolog 100 unit/mL Sub-Q soln [Active]; omeprazole 20 mg Oral cpDR 1 cap once daily [Active]; sertraline 50 mg Oral tab 1 tab once daily [Active]; simvastatin 20 mg Oral tab 1 tab once daily [Active]; spironolactone 50 mg Oral tab 1 tab once daily [Active]; torsemide 20 mg Oral tab 1 tab once daily [Active]; - PMHx: 18:01 Anxiety; Depression; Diabetes - NIDDM; Hypothyroidism; kidney problems; [place] liver; sr5 - PSHx: 18:01 paracentesis; sr5 - Immunization history:: Adult Immunizations up to date. - Social history:: Smoking status: Patient/guardian denies using tobacco. - Ebola Screening: : No symptoms or risks identified at this time. ROS: 18:23 Constitutional: Negative for fever, chills, and weight loss, Eyes: Negative for injury, la1 pain, redness, and discharge, ENT: Negative for injury, pain, and discharge, Neck: + for "throbbing" neck pain Cardiovascular: Negative for chest pain, palpitations, + for LE edema Respiratory: Negative for shortness of breath, cough, wheezing, and pleuritic chest pain, Skin: + for "rash" to heydi feet 18:23 Back: Negative for injury and pain, : Negative for injury, bleeding, discharge, and swelling, MS/Extremity: Negative for injury and deformity. 18:23 Abdomen/GI: Positive for abdominal distension, Negative for nausea, vomiting, and diarrhea, hematemesis, black/tarry stool, rectal pain, rectal bleeding, bowel incontinence. Exam: 18:24 Constitutional: This is a well developed, well nourished patient who is awake, alert, la1 and in no acute distress. Head/Face: Normocephalic, atraumatic. Eyes: Pupils equal round and reactive to light, extra-ocular motions intact. Periorbital areas with no swelling, redness, or edema. ENT: . Mucous membranes moist. Neck: Trachea midline, no cervical lymphadenopathy. Supple, full range of motion without nuchal rigidity, or vertebral point tenderness. No Meningismus. Chest/axilla: Normal chest wall appearance and motion. Nontender with no deformity. No lesions are appreciated. 18:24 Cardiovascular: Rate: normal, Rhythm: regular, Pulses: Pulses are 3+ in right radial artery and left radial artery. Heart sounds: murmur, grade 3 over 6, heard in the aortic area, Edema: 2+ edema to level of left midcalf, left ankle, left foot, right midcalf, right ankle and right foot, pedal edema, that is moderate, ankle edema, that is moderate. 18:24 Abdomen/GI: Inspection: distension, that is moderate, obese Bowel sounds: normal, in all quadrants, Palpation: soft, in the right upper quadrant and right lower quadrant, nontender, in all quadrants, area of edematous abd tissue to the LUQ and LLQ, dressing from abd paracentesis present without signs of redness, swelling, or drainage, area is non-tender\\E\\. 18:24 Skin: rash a mild rash is noted, rash can be described as petechial rash to HEYDI feet and right FA. 20:39 Abdomen/GI: Rectal exam: is unremarkable, rectal tone normal, Stool: guaiac negative, la1 loose, soft, the exam is chaperoned by the nurse. 20:52 Neuro: Orientation: to person, place, Not oriented to time, situation, Mentation: slow la1 to respond, confused, sleepy. Vital Signs: 18:01 BP 107 / 52; Pulse 74; Resp 20; Temp 97.6(O); Pulse Ox 95% on R/A; Weight 122.02 kg sr5 (R); Height 5 ft. 4 in. (162.56 cm); Pain 3/10; 19:20 BP 125 / 67; Pulse 74; Resp 14; Pulse Ox 92% on R/A; lp1 20:15 BP 130 / 65; Pulse 75; Resp 19; Pulse Ox 97% on 2 lpm NC; lp1 21:00 BP 110 / 66; Pulse 74; Resp 15; Pulse Ox 97% on 2 lpm NC; lp1 22:00 BP 117 / 56; Pulse 74; Resp 16; Temp 97.6(O); Pulse Ox 97% on 2 lpm NC; lp1 23:00 BP 118 / 61; Pulse 76; Resp 13; Pulse Ox 97% on 2 lpm NC; lp1 23:45 BP 136 / 74; Pulse 75; Resp 14; Pulse Ox 96% on R/A; lp1 18:01 Body Mass Index 46.17 (122.02 kg, 162.56 cm) sr5 MDM: 18:08 Patient medically screened. la1 21:47 Data reviewed: vital signs, nurses notes, lab test result(s), radiologic studies, I la1 have discussed the patient's presentation/case with the attending Emergency Department Physician; and as a result, I will admit patient. Data interpreted: Pulse oximetry: on room air is 97 %. Interpretation: normal. Counseling: I had a detailed discussion with the patient and/or guardian regarding: the historical points, exam findings, and any diagnostic results supporting the discharge/admit diagnosis, lab results, radiology results, the need for further work-up and treatment in the hospital. Physician consultation: Panda Nam MD was called at 21:48, was contacted at 21:48, regarding admission, after a discussion of the case, a recommendation for transfer for higher level of care is made, Hospitalist not comfortable admitting patient without the ability to consult GI. 22:03 Counseling: I had a detailed discussion with the patient and/or guardian regarding: the la1 need to transfer to another facility, [facility] does not immediately have the required specialist. 10/31 18:16 Order name: Basic Metabolic Panel; Complete Time: 19:27 [facility] 10/31 18:16 Order name: CBC with Diff; Complete Time: 19:27 [facility] 10/31 18:16 Order name: LFT's; Complete Time: 19:27 [facility] 10/31 18:16 Order name: Magnesium; Complete Time: 19:27 [facility] 10/31 18:16 Order name: NT PRO-BNP; Complete Time: 19:27 [facility] 10/31 18:16 Order name: PT-INR; Complete Time: 19:27 [facility] 10/31 18:16 Order name: Troponin (emerg Dept Use Only); Complete Time: 19:27 [facility] 10/31 18:16 Order name: Blood Culture Adult (2) [facility] 10/31 18:16 Order name: Lactate; Complete Time: 19:27 [facility] 10/31 18:16 Order name: AMMONIA; Complete Time: 19:27 [facility] 10/31 18:56 Order name: Glucose, Ancillary Testing; Complete Time: 19:27 [facility] 10/31 19:03 Order name: PTT, Activated Partial Thromb; Complete Time: 19:27 [facility] 10/31 22:48 Order name: Glucose, Ancillary Testing [facility] 10/31 18:16 Order name: XRAY Chest (1 view); Complete Time: 20:00 [facility] 10/31 18:16 Order name: EKG; Complete Time: 18:17 [facility] 10/31 18:16 Order name: Cardiac monitoring; Complete Time: 18:48 [facility] 10/31 18:16 Order name: EKG - Nurse/Tech; Complete Time: 18:48 10/31 18:16 Order name: IV Saline Lock; Complete Time: 18:48 10/31 18:16 Order name: Labs collected and sent; Complete Time: 18:48 [facility] 10/31 18:16 Order name: O2 Per Protocol; Complete Time: 18:48 [facility] 10/31 18:16 Order name: O2 Sat Monitoring; Complete Time: 18:48 la1 10/31 18:16 Order name: CT Head C Spine; Complete Time: 20:00 la1 10/31 23:49 Order name: Urine Dipstick--Ancillary (enter results) cm6 Administered Medications: 20:40 Drug: Lactulose 30 grams Volume: 45 ml; Route: PO; lp1 21:30 Follow up: Response: No adverse reaction lp1 Point of Care Testing: Guaiac: 20:35 Stool Guaiac: Negative; Stool Hemoccult Control: Pass; lp1 Disposition: 10/31/19 22:[address] [facility]. Diagnosis are Altered mental status, unspecified, Hepatic Encephalopathy. - Reason for transfer: Higher level of care. - Accepting physician is Dr. Romero. - Condition is Stable. - Problem is an ongoing problem. - Symptoms have worsened. Addendum: 11/09/2019 10:57 Co-signature as Attending Physician, Maynor Lo MD I agree with the assessment and c bey plan of care. Signatures: Dispatcher [employer] [facility] Maynor Lo MD MD cha Pena, Laura, RN RN lp1 Jhony Jaramillo, CASH APPLICATION CLERK-C CASH APPLICATION CLERK-Cla1 Vega Leahy RN RN sr5 Corrections: (The following items were deleted from the chart) 10/31 19:02 18:18 PTT, ACTIVATED+COAG.LAB.BRZ ordered. [facility] 11/01 00:03 10/31 22:05 10/31/2019 22:[address] [facility]. lp1 Diagnosis is Altered mental status, unspecified; Hepatic Encephalopathy. Reason for transfer: Higher level of care. Accepting physician is Dr. Romero. Condition is Stable. Problem is an ongoing problem. Symptoms have worsened. la1
[2019-11-01 00:27] VITALS: TEMP 97.6
[2019-11-01 00:35] VITALS: BP 136/74; O2SAT 96
[2019-11-01 02:03] LABS: Urine Blood TRACE (NEG); Urine Glucose NEGATIVE (NEG); Urine Protein TRACE (NEG); Urine Specific Gravity 1.015 (1.005-1.030); Urine pH 5.5 (5.0-7.0)
--- NOTE | 2019-11-01 11:44 | EKG ---
Test Date: 2019-10-31 Test Time: 19:18:24 Welding Tester: KEVIN MEASUREMENT RESULTS: Intervals: Rate: 74 OR: QRSD: 88 QT: 394 QTc: 437 [place]: P: OR: QRS: 103 T: -13 INTERPRETIVE STATEMENTS: Accelerated Junctional rhythm Rightward axis Low voltage QRS Cannot rule out Anterior infarct, age undetermined Abnormal ECG Compared to ECG 09/29/2019 02:01:38 Accelerated junctional rhythm now present Right-axis deviation now present Myocardial infarct finding now present Sinus rhythm no longer present ST (T wave) deviation no longer present Electronically Signed On 11-01-19 11:42:02 PEDIATRIC ORTHODONTIST by Austin Kerr
== END 2019-11-01 00:03 | disposition short-term general hospital (02) ==
LOC: ER 17:35
DX: K72.90 Hepatic failure, unspecified without coma (principal); E11.9 Type 2 diabetes mellitus without complications; F32.9 Major depressive disorder, single episode, unspecified; E03.9 Hypothyroidism, unspecified; F41.9 Anxiety disorder, unspecified; Z79.4 Long term (current) use of insulin
CPT/HCPCS: 36415; 70450; 71045; 72125; 80048; 80076; 81003; 82140; 82947; 83605; 83735; 83880; 84484; 85025; 85610; 85730; 87040; 93005; 99285

== ENCOUNTER 2019-12-21 07:09 | Day surgery (SDC) | payer OTHER ==
--- OUTSIDE RECORDS SUMMARY | 2019-12-21 07:24 | XMS REPORT ---
:1960 [facility] [address] [place] [address] Dr. Melton [address] [place] [id number] Care Team Providers Name Role Phone SHALINI LOYA Unavailable Unavailable MOJGAN STEWART Unavailable Unavailable DANIEL FREIRE Unavailable Unavailable IRVIN NARAYANAN Unavailable Unavailable ZEB CASEY Unavailable Unavailable Problems This patient has no known problems. Allergies, Adverse Reactions, Alerts This patient has no known allergies or adverse reactions. Medications This patient has no known medications. Results Test Description Test Time Test Comments Text Results Atomic Results Result Comments BASIC METABOLIC PANEL 2019-11-25 15:38:00 Test Item Value Reference Range Comments SODIUM (BEAKER) (test 139 meq/L 136-145 zcpv=023) POTASSIUM (BEAKER) (test 3.5 meq/L 3.5-5.1 bose=691) CHLORIDE (BEAKER) (test 97 meq/L 98-107 tvjc=909) CO2 (BEAKER) (test rhaz=894) 35 meq/L 22-29 BLOOD UREA NITROGEN (BEAKER) 22 mg/dL 7-21 (test tbze=727) CREATININE (BEAKER) (test 1.77 mg/dL 0.57-1.25 gjet=584) GLUCOSE RANDOM (BEAKER) 348 mg/dL 70-105 (test ssan=288) CALCIUM (BEAKER) (test 8.7 mg/dL 8.4-10.2 zpaa=256) EGFR (BEAKER) (test 29 mL/min/1.73 sq m ESTIMATED GFR IS NOT vyuc=3697) ACCURATE CREATININE CLEARANCE IN PREDICTING GLOMERULAR FILTRATION RATE. ESTIMATED GFR IS NOT APPLICABLE FOR DIALYSIS PATIENTS. Blind Lacer ID - BSALPHA FETOPROTEIN (AFP), TUMOR [id number] 15:33:00 Test Item Value Reference Range Comments ALPHA-FETOPROTEIN (BEAKER) (test xpdq=3019) 2.8 ng/mL <10.0 Blind [place]acer ID - TENZIN CHEPATIC FUNCTION [id number] 15:24:00 Test Item Value Reference Range Comments TOTAL PROTEIN (BEAKER) (test zuyn=380) 6.2 gm/dL 6.0-8.3 ALBUMIN (BEAKER) (test mywn=7835) 2.7 g/dL 3.5-5.0 BILIRUBIN TOTAL (BEAKER) (test fouh=308) 1.2 mg/dL 0.2-1.2 BILIRUBIN DIRECT (BEAKER) (test vdlc=981) 0.6 mg/dL 0.1-0.5 ALKALINE PHOSPHATASE (BEAKER) (test tcnw=178) 132 U/L 40-150 AST (SGOT) (BEAKER) (test alvj=833) 51 U/L 5-34 ALT (SGPT) (BEAKER) (test efai=695) 29 U/L 6-55 Blind Lacer ID - BSPROTHROMBIN [id number] 14:49:00 Test Item Value Reference Range Comments PROTIME (BEAKER) (test trdb=463) 14.3 seconds 11.9-14.2 INR (BEAKER) (test jwtk=253) 1.1 <=5.9 Effective 04/01/2019: PT Reference Range ChangeNew: 11.9-14.2 Previous: 11.7- 14.7RECOMMENDED COUMADIN/WARFARIN INR THERAPY RANGESSTANDARD DOSE: 2.0-3.0 Includes: PROPHYLAXIS for venous thrombosis, systemic embolization; TREATMENT for venous thrombosis and/or pulmonary embolus.HIGH RISK: Target INR is2.5-3.5 for patients wiht mechanical heart valves.CBC W/PLT COUNT & AUTO [id number] 14:36:00 Test Item Value Reference Range Comments WHITE BLOOD CELL COUNT (BEAKER) (test rddu=643) 5.9 K/ L 3.5-10.5 RED BLOOD CELL COUNT (BEAKER) (test fqys=099) 3.53 M/ L 3.93-5.22 HEMOGLOBIN (BEAKER) (test cllo=010) 9.0 GM/DL 11.2-15.7 HEMATOCRIT (BEAKER) (test uiaq=013) 30.1 % 34.1-44.9 MEAN CORPUSCULAR VOLUME (BEAKER) (test kujc=366) 85.3 fL 79.4-94.8 MEAN CORPUSCULAR HEMOGLOBIN (BEAKER) (test 25.5 pg 25.6-32.2 fmzs=089) MEAN CORPUSCULAR HEMOGLOBIN CONC (BEAKER) (test 29.9 GM/DL 32.2-35.5 scrm=244) RED CELL DISTRIBUTION WIDTH (BEAKER) (test 17.3 % 11.7-14.4 scci=886) PLATELET COUNT (BEAKER) (test ecma=899) 204 K/CU MM 150-450 MEAN PLATELET VOLUME (BEAKER) (test jmxo=704) 9.6 fL 9.4-12.3 NUCLEATED RED BLOOD CELLS (BEAKER) (test 0 /100 WBC 0-0 ingx=726) NEUTROPHILS RELATIVE PERCENT (BEAKER) (test 62 % apqe=017) LYMPHOCYTES RELATIVE PERCENT (BEAKER) (test 28 % xtpc=268) MONOCYTES RELATIVE PERCENT (BEAKER) (test 7 % lgob=007) EOSINOPHILS RELATIVE PERCENT (BEAKER) (test 3 % kspb=056) BASOPHILS RELATIVE PERCENT (BEAKER) (test 1 % jzwa=847) NEUTROPHILS ABSOLUTE COUNT (BEAKER) (test 3.65 K/ L 1.56-6.13 tcdi=197) LYMPHOCYTES ABSOLUTE COUNT (BEAKER) (test 1.64 K/ L 1.18-3.74 czye=530) MONOCYTES ABSOLUTE COUNT (BEAKER) (test 0.41 K/ L 0.24-0.36 qbwn=510) EOSINOPHILS ABSOLUTE COUNT (BEAKER) (test 0.17 K/ L 0.04-0.36 vxav=091) BASOPHILS ABSOLUTE COUNT (BEAKER) (test 0.05 K/ L 0.01-0.08 mygh=700) IMMATURE GRANULOCYTES-RELATIVE PERCENT (BEAKER) 0 % 0-1 (test dnfp=6287) RAD, CHEST, 2 [id number] 11:02:00Reason for exam:->effusions Rt> LtShould this be performed at the bedside?->NoAddendum BeginsREPORT STATUS:A Addendum: The exam title should state as follows: Chest PA and lateral The first sentence in the findings section should read as follows : PA and lateral chest radiographs were obtained. Signed: Dilip Valles Verified Date/Time: 11/23/2019 11:02:54 Reading Location: [facility] Radiology Reading RoomAddendum EndsFINAL REPORT CHEST ONE VIEW HISTORY: Pleural effusions COMPARISON: 11/06/2019 FINDINGS: Single portable AP examination of the chest was performed. There is chronic elevation of the right diaphragm. A small right pleural effusion is suspected. No definite left pleural effusion. Subsegmental atelectasis at the rightlung base. Linear scar versus subsegmental atelectasis lateral to the left heart border. No pneumothorax. The heart shadow is partially obscured. Signed: Dilip Valleseport Verified Date/Time: 11/08/2019 17:39:12 Reading Location: [facility] C013T Transitional Reading Room POCT-GLUCOSE [id number] 18:02:00 Test Item Value Reference Range Comments POC-GLUCOSE METER (BEAKER) 265 mg/dL 70-110 : TESTED AT [address] (test bsst=2895) [facility], [address]: Blind Lacer/Vise Hand YF=[id number] for MCGHEE, MARCOS POCT-GLUCOSE [id number] 13:18:00 Test Item Value Reference Range Comments POC-GLUCOSE METER (BEAKER) 234 mg/dL 70-110 : TESTED AT [address] (test jqoa=1638) [facility], [address]: Blind Lacer/Vise Hand AK=[id number] for MCGHEE, MARCOS POCT-GLUCOSE [id number] 09:59:00 Test Item Value Reference Range Comments POC-GLUCOSE METER (BEAKER) 250 mg/dL 70-110 : TESTED AT [address] (test uxhw=8257) [place] [address]: Blind Lacer/Vise Hand VX=[id number] for MCGHEE, MARCOS BLOOD GAS, [id number] 06:56:00 Test Item Value Reference Range Comments PH VENOUS (BEAKER) (test qzbm=307) 7.38 7.32-7.42 PCO2 VENOUS (BEAKER) (test qwdo=676) 67 mmHg 41-51 PO2 VENOUS (BEAKER) (test dabx=044) 57 mmHg 25-40 O2 SATURATION VENOUS (BEAKER) (test lrgy=473) 88.2 % 40.0-70.0 HCO3 VENOUS (BEAKER) (test fnkm=435) 39 mmol/L 21-29 BASE EXCESS VENOUS (BEAKER) (test zsja=708) 11.8 mmol/L -2.0-3.0 PATIENT TEMPERATURE (BEAKER) (test bmxc=5951) 37.0 C [id number] 06:30:00 Test Item Value Reference Range Comments MAGNESIUM (BEAKER) (test nzhs=425) 1.7 mg/dL 1.6-2.6 COMPREHENSIVE METABOLIC [id number] 06:30:00 Test Item Value Reference Range Comments TOTAL PROTEIN (BEAKER) 4.9 gm/dL 6.0-8.3 (test frpt=724) ALBUMIN (BEAKER) (test 2.3 g/dL 3.5-5.0 dlvw=3610) ALKALINE PHOSPHATASE 74 U/L 40-150 (BEAKER) (test fkpc=589) BILIRUBIN TOTAL (BEAKER) 1.1 mg/dL 0.2-1.2 (test hwjw=196) SODIUM (BEAKER) (test 137 meq/L 136-145 wooh=757) POTASSIUM (BEAKER) (test 3.7 meq/L 3.5-5.1 qssk=469) CHLORIDE (BEAKER) (test 97 meq/L 98-107 kcxf=060) CO2 (BEAKER) (test 36 meq/L 22-29 drwt=261) BLOOD UREA NITROGEN 16 mg/dL 7-21 (BEAKER) (test ymgm=310) CREATININE (BEAKER) (test 1.57 mg/dL 0.57-1.25 aixw=722) GLUCOSE RANDOM (BEAKER) 284 mg/dL 70-105 (test pjds=655) CALCIUM (BEAKER) (test 7.9 mg/dL 8.4-10.2 iwxs=269) AST (SGOT) (BEAKER) (test 22 U/L 5-34 dddm=858) ALT (SGPT) (BEAKER) (test 14 U/L 6-55 xzpi=691) EGFR (BEAKER) (test 33 mL/min/1.73 sq m ESTIMATED GFR IS NOT twvm=3554) ACCURATE CREATININE CLEARANCE IN PREDICTING GLOMERULAR FILTRATION RATE. ESTIMATED GFR IS NOT APPLICABLE FOR DIALYSIS PATIENTS. [id number] 06:29:00 Test Item Value Reference Range Comments PHOSPHORUS (BEAKER) (test urij=707) 2.0 mg/dL 2.3-4.7 B-TYPE NATRIURETIC FACTOR (BNP)2019-11-10 06:24:00 Test Item Value Reference Range Comments B-TYPE NATRIURETIC PEPTIDE (BEAKER) (test 2022 pg/mL 0-100 yjjb=277) CALCIUM, [id number] 06:23:00 Test Item Value Reference Range Comments CALCIUM IONIZED (BEAKER) (test yldi=725) 1.05 mmol/L 1.12-1.27 PH, BLOOD (BEAKER) (test dvmq=2039) 7.41 CBC W/PLT COUNT & AUTO [id number] 06:03:00 Test Item Value Reference Range Comments WHITE BLOOD CELL COUNT (BEAKER) (test mkbd=753) 4.3 K/ L 3.5-10.5 RED BLOOD CELL COUNT (BEAKER) (test rxsv=383) 3.14 M/ L 3.93-5.22 HEMOGLOBIN (BEAKER) (test mnej=142) 8.1 GM/DL 11.2-15.7 HEMATOCRIT (BEAKER) (test zogv=929) 26.9 % 34.1-44.9 MEAN CORPUSCULAR VOLUME (BEAKER) (test hpmi=911) 85.7 fL 79.4-94.8 MEAN CORPUSCULAR HEMOGLOBIN (BEAKER) (test 25.8 pg 25.6-32.2 vcbp=878) MEAN CORPUSCULAR HEMOGLOBIN CONC (BEAKER) (test 30.1 GM/DL 32.2-35.5 yylf=748) RED CELL DISTRIBUTION WIDTH (BEAKER) (test 15.6 % 11.7-14.4 gmeq=013) PLATELET COUNT (BEAKER) (test gsse=994) 79 K/CU MM 150-450 MEAN PLATELET VOLUME (BEAKER) (test hikk=962) 9.5 fL 9.4-12.3 NUCLEATED RED BLOOD CELLS (BEAKER) (test 0 /100 WBC 0-0 eyxk=162) NEUTROPHILS RELATIVE PERCENT (BEAKER) (test 52 % rcid=763) LYMPHOCYTES RELATIVE PERCENT (BEAKER) (test 33 % yqxr=399) MONOCYTES RELATIVE PERCENT (BEAKER) (test 7 % dbki=067) EOSINOPHILS RELATIVE PERCENT (BEAKER) (test 7 % pohu=339) BASOPHILS RELATIVE PERCENT (BEAKER) (test 1 % xwtm=580) NEUTROPHILS ABSOLUTE COUNT (BEAKER) (test 2.22 K/ L 1.56-6.13 tzhi=225) LYMPHOCYTES ABSOLUTE COUNT (BEAKER) (test 1.41 K/ L 1.18-3.74 kmdb=300) MONOCYTES ABSOLUTE COUNT (BEAKER) (test xiyx=853) 0.32 K/ L 0.24-0.36 EOSINOPHILS ABSOLUTE COUNT (BEAKER) (test 0.29 K/ L 0.04-0.36 yvcf=395) BASOPHILS ABSOLUTE COUNT (BEAKER) (test zhcf=557) 0.05 K/ L 0.01-0.08 IMMATURE GRANULOCYTES-RELATIVE PERCENT (BEAKER) 0 % 0-1 (test avct=6576) U/S, ABDOMINAL, [id number] 05:29:00U/S doppler for TIPS interrogationAbdomen limited area? Add comment if clarification is needed.-> LiverReason for exam:->evaluate TIPS patencyFINAL REPORT History: TIPS patency evaluation Abdominal ultrasound dated 11/09/2019 Comparison: 05/22/2019 Comment: Real-time transabdominal ultrasound of the abdomen was performed. Liver: 10.7 cm , normal. Coarsened echogenicity with a nodular contour, consistent with cirrhosis. No focal lesions. Gallbladder: No gallstones. No gallbladder wall thickening. No perocholecystic fluid.. No sonographic Stewart's sign. Biliary tree: No intrahepatic ductal dilatation. CBD : 4 mm. Spleen: Normal size and echogenicity. Pancreas: Unremarkable. Right kidney: 11.2 x 5.2 x 5.9 cm. Normal echogenicity. Moderate to large volume ascites is present in the abdomen. Right pleural effusion. Real-time Lo scale , color and spectral doppler ultrasound of the abdomen was performed to evaluate visceral blood flow. Main portal vein measures 1.4 cm in diameter. There is hepatopetal flow in the main portal vein with velocity 46.1 cm/sec. The right and left intrahepatic portal veins are patent with hepatopetal flow. The visualized splenic vein is patent with appropriate flow. Proper hepatic artery, right hepatic artery, and left hepatic artery are patent with resistive indices 0.7, 0.8, and 0.7respectively. IVC, Hepatic venous confluence, right HV , middle HV and left HV are patent with appropriate flow. The visualized abdominal aorta is normal in caliber. The IVC and Hepatic veins are patent. Proximal TIPS: 110 cm/s (previous 124 cm/s)Mid TIPS: 145 cm/s (previous 122 cm/s )Distal TIPS: 175 cm/s (previous 131 cm/s) Impression: Cirrhosis and evidence of portal hypertension. Right pleural effusion. Abdominal Doppler evaluation, including TIPS evaluation, as described. Signed: Latasha Khuory MDReport Verified Date/Time: 11/10/2019 05:29:45 Electronically signed by: LATASHA KHOURY M.D.on 11/10/2019 05:29 AMPOCT-GLUCOSE [id number] 21:05:00 Test Item Value Reference Range Comments POC-GLUCOSE METER (BEAKER) 341 mg/dL 70-110 : TESTED AT [address] (test trun=3570) [facility], [facility]: Blind Lacer/Vise Hand YW=[id number] for DWIGHT HASSAN POCT-GLUCOSE [id number] 18:27:00 Test Item Value Reference Range Comments POC-GLUCOSE METER (BEAKER) 314 mg/dL 70-110 : TESTED AT [address] (test izxk=3068) [facility], [address]: Blind Lacer/Vise Hand QN=[id number] for MARCOS MCGHEE BLOOD [id number] 18:17:00 Test Item Value Reference Range Comments CULTURE (BEAKER) (test mpso=1297) No growth in 5 days BLOOD [id number] 18:17:00 Test Item Value Reference Range Comments CULTURE (BEAKER) (test xouu=3310) No growth in 5 days POCT-GLUCOSE [id number] 16:56:00 Test Item Value Reference Range Comments POC-GLUCOSE METER (BEAKER) 258 mg/dL 70-110 : TESTED AT [address] (test qjkz=2335) [facility], [address]: Blind Lacer/Vise Hand OG=[id number] for COLTON MCGHEEE POCT-GLUCOSE [id number] 08:44:00 Test Item Value Reference Range Comments POC-GLUCOSE METER (BEAKER) 213 mg/dL 70-110 : TESTED AT [facility] [address] (test zfer=0346) [place], [address]: Blind Lacer/Vise Hand NO=[id number] for MARCOS MCGHEE COMPREHENSIVE METABOLIC [id number] 04:45:00 Test Item Value Reference Range Comments TOTAL PROTEIN (BEAKER) 5.1 gm/dL 6.0-8.3 (test epuc=052) ALBUMIN (BEAKER) (test 2.5 g/dL 3.5-5.0 vksk=8953) ALKALINE PHOSPHATASE 74 U/L 40-150 (BEAKER) (test hnxw=003) BILIRUBIN TOTAL (BEAKER) 1.1 mg/dL 0.2-1.2 (test hqba=485) SODIUM (BEAKER) (test 140 meq/L 136-145 ziwa=613) POTASSIUM (BEAKER) (test 4.1 meq/L 3.5-5.1 tjku=329) CHLORIDE (BEAKER) (test 99 meq/L 98-107 avke=752) CO2 (BEAKER) (test 37 meq/L 22-29 zyif=072) BLOOD UREA NITROGEN 21 mg/dL 7-21 (BEAKER) (test dvpx=550) CREATININE (BEAKER) (test 1.60 mg/dL 0.57-1.25 mlkh=185) GLUCOSE RANDOM (BEAKER) 267 mg/dL 70-105 (test lcib=329) CALCIUM (BEAKER) (test 7.9 mg/dL 8.4-10.2 qweh=957) AST (SGOT) (BEAKER) (test 25 U/L 5-34 syyn=472) ALT (SGPT) (BEAKER) (test 14 U/L 6-55 qgsa=486) EGFR (BEAKER) (test 33 mL/min/1.73 sq m ESTIMATED GFR IS NOT pmck=8868) ACCURATE CREATININE CLEARANCE IN PREDICTING GLOMERULAR FILTRATION RATE. ESTIMATED GFR IS NOT APPLICABLE FOR DIALYSIS PATIENTS. [id number] 04:38:00 Test Item Value Reference Range Comments MAGNESIUM (BEAKER) (test hhjj=138) 1.6 mg/dL 1.6-2.6 CBC W/PLT COUNT & AUTO [id number] 04:25:00 Test Item Value Reference Range Comments WHITE BLOOD CELL COUNT (BEAKER) (test trdz=340) 4.6 K/ L 3.5-10.5 RED BLOOD CELL COUNT (BEAKER) (test xbsr=030) 3.04 M/ L 3.93-5.22 HEMOGLOBIN (BEAKER) (test jyzu=475) 7.9 GM/DL 11.2-15.7 HEMATOCRIT (BEAKER) (test qxve=405) 26.1 % 34.1-44.9 MEAN CORPUSCULAR VOLUME (BEAKER) (test jrxs=935) 85.9 fL 79.4-94.8 MEAN CORPUSCULAR HEMOGLOBIN (BEAKER) (test 26.0 pg 25.6-32.2 gkcq=661) MEAN CORPUSCULAR HEMOGLOBIN CONC (BEAKER) (test 30.3 GM/DL 32.2-35.5 pdes=230) RED CELL DISTRIBUTION WIDTH (BEAKER) (test 15.5 % 11.7-14.4 hpag=301) PLATELET COUNT (BEAKER) (test mpcz=726) 79 K/CU MM 150-450 MEAN PLATELET VOLUME (BEAKER) (test dtdv=962) 9.6 fL 9.4-12.3 NUCLEATED RED BLOOD CELLS (BEAKER) (test 0 /100 WBC 0-0 wyoh=861) NEUTROPHILS RELATIVE PERCENT (BEAKER) (test 53 % vxww=656) LYMPHOCYTES RELATIVE PERCENT (BEAKER) (test 33 % whcf=162) MONOCYTES RELATIVE PERCENT (BEAKER) (test 8 % zhiw=373) EOSINOPHILS RELATIVE PERCENT (BEAKER) (test 5 % yhrn=665) BASOPHILS RELATIVE PERCENT (BEAKER) (test 1 % mfyq=250) NEUTROPHILS ABSOLUTE COUNT (BEAKER) (test 2.43 K/ L 1.56-6.13 irpq=656) LYMPHOCYTES ABSOLUTE COUNT (BEAKER) (test 1.51 K/ L 1.18-3.74 vfkr=879) MONOCYTES ABSOLUTE COUNT (BEAKER) (test wazf=166) 0.36 K/ L 0.24-0.36 EOSINOPHILS ABSOLUTE COUNT (BEAKER) (test 0.23 K/ L 0.04-0.36 pvum=646) BASOPHILS ABSOLUTE COUNT (BEAKER) (test drln=177) 0.06 K/ L 0.01-0.08 IMMATURE GRANULOCYTES-RELATIVE PERCENT (BEAKER) 0 % 0-1 (test xowz=0125) POCT-GLUCOSE [id number] 20:56:00 Test Item Value Reference Range Comments POC-GLUCOSE METER (BEAKER) 277 mg/dL 70-110 : TESTED AT [address] (test zzwu=7870) [facility], [address]: Blind Lacer/Vise Hand IM=[id number] for CHRISS BAUMAN POCT-GLUCOSE [id number] 17:07:00 Test Item Value Reference Range Comments POC-GLUCOSE METER (BEAKER) 283 mg/dL 70-110 : TESTED AT [address] (test phjf=7986) [facility], [address]: Blind Lacer/Vise Hand QL=[id number] for QUEEN TRENT POCT-GLUCOSE [id number] 12:20:00 Test Item Value Reference Range Comments POC-GLUCOSE METER (BEAKER) 233 mg/dL 70-110 : TESTED AT [address] (test roae=7665) [facility], [address]: Blind Lacer/Vise Hand MO=[id number] for QUEEN TRENT POCT-GLUCOSE [id number] 07:31:00 Test Item Value Reference Range Comments POC-GLUCOSE METER (BEAKER) 251 mg/dL 70-110 : TESTED AT [address] (test gthb=1076) [facility], [address]: Blind Lacer/Vise Hand WW=[id number] for QUEEN TRENT [id number] 06:14:00 Test Item Value Reference Range Comments MAGNESIUM (BEAKER) (test wgxm=959) 1.9 mg/dL 1.6-2.6 COMPREHENSIVE METABOLIC [id number] 06:14:00 Test Item Value Reference Range Comments TOTAL PROTEIN (BEAKER) 5.5 gm/dL 6.0-8.3 (test gqmx=508) ALBUMIN (BEAKER) (test 2.8 g/dL 3.5-5.0 qvcc=0384) ALKALINE PHOSPHATASE 81 U/L 40-150 (BEAKER) (test pfdk=269) BILIRUBIN TOTAL (BEAKER) 1.3 mg/dL 0.2-1.2 (test chqq=702) SODIUM (BEAKER) (test 137 meq/L 136-145 cojf=757) POTASSIUM (BEAKER) (test 4.5 meq/L 3.5-5.1 bbrv=475) CHLORIDE (BEAKER) (test 99 meq/L 98-107 rjao=208) CO2 (BEAKER) (test 32 meq/L 22-29 gvje=125) BLOOD UREA NITROGEN 25 mg/dL 7-21 (BEAKER) (test uudc=690) CREATININE (BEAKER) (test 1.63 mg/dL 0.57-1.25 ohqt=537) GLUCOSE RANDOM (BEAKER) 247 mg/dL 70-105 (test nqxr=339) CALCIUM (BEAKER) (test 8.0 mg/dL 8.4-10.2 lnan=886) AST (SGOT) (BEAKER) (test 28 U/L 5-34 pvid=066) ALT (SGPT) (BEAKER) (test 16 U/L 6-55 eklp=185) EGFR (BEAKER) (test 32 mL/min/1.73 sq m ESTIMATED GFR IS NOT uzfp=1048) ACCURATE CREATININE CLEARANCE IN PREDICTING GLOMERULAR FILTRATION RATE. ESTIMATED GFR IS NOT APPLICABLE FOR DIALYSIS PATIENTS. CBC W/PLT COUNT & AUTO [id number] 05:49:00 Test Item Value Reference Range Comments WHITE BLOOD CELL COUNT (BEAKER) (test xghp=074) 4.7 K/ L 3.5-10.5 RED BLOOD CELL COUNT (BEAKER) (test zloo=551) 3.12 M/ L 3.93-5.22 HEMOGLOBIN (BEAKER) (test viuy=842) 8.0 GM/DL 11.2-15.7 HEMATOCRIT (BEAKER) (test thbw=329) 27.1 % 34.1-44.9 MEAN CORPUSCULAR VOLUME (BEAKER) (test wlut=558) 86.9 fL 79.4-94.8 MEAN CORPUSCULAR HEMOGLOBIN (BEAKER) (test 25.6 pg 25.6-32.2 ppix=572) MEAN CORPUSCULAR HEMOGLOBIN CONC (BEAKER) (test 29.5 GM/DL 32.2-35.5 fsxy=837) RED CELL DISTRIBUTION WIDTH (BEAKER) (test 15.5 % 11.7-14.4 qobu=376) PLATELET COUNT (BEAKER) (test kpil=991) 99 K/CU MM 150-450 MEAN PLATELET VOLUME (BEAKER) (test eauo=377) 9.1 fL 9.4-12.3 NUCLEATED RED BLOOD CELLS (BEAKER) (test 0 /100 WBC 0-0 njha=120) NEUTROPHILS RELATIVE PERCENT (BEAKER) (test 48 % evil=612) LYMPHOCYTES RELATIVE PERCENT (BEAKER) (test 35 % gvxj=239) MONOCYTES RELATIVE PERCENT (BEAKER) (test 10 % kubq=032) EOSINOPHILS RELATIVE PERCENT (BEAKER) (test 6 % cwig=786) BASOPHILS RELATIVE PERCENT (BEAKER) (test 1 % oleo=697) NEUTROPHILS ABSOLUTE COUNT (BEAKER) (test 2.26 K/ L 1.56-6.13 wlhf=681) LYMPHOCYTES ABSOLUTE COUNT (BEAKER) (test 1.64 K/ L 1.18-3.74 pifz=440) MONOCYTES ABSOLUTE COUNT (BEAKER) (test wajr=812) 0.47 K/ L 0.24-0.36 EOSINOPHILS ABSOLUTE COUNT (BEAKER) (test 0.29 K/ L 0.04-0.36 uaeo=897) BASOPHILS ABSOLUTE COUNT (BEAKER) (test zawg=511) 0.06 K/ L 0.01-0.08 IMMATURE GRANULOCYTES-RELATIVE PERCENT (BEAKER) 0 % 0-1 (test finy=9932) POCT-GLUCOSE [id number] 20:57:00 Test Item Value Reference Range Comments POC-GLUCOSE METER (BEAKER) 237 mg/dL 70-110 : Notified RN/MD: TESTED AT (test wxmp=3134) [address], [address]: [place] [employer] ZW=[id number] for CHRISS BAUMAN POCT-GLUCOSE [id number] 16:58:00 Test Item Value Reference Range Comments POC-GLUCOSE METER (BEAKER) 275 mg/dL 70-110 : TESTED AT [address] (test lxrs=4815) [facility], [address]: [place] [facility] UA=[id number] for [facility] POCT-GLUCOSE [id number] 12:18:00 Test Item Value Reference Range Comments POC-GLUCOSE METER (BEAKER) 272 mg/dL 70-110 : TESTED AT [address] (test yabs=6595) [facility], [address]: [place] OR=[id number] for [facility] POCT-GLUCOSE [id number] 07:49:00 Test Item Value Reference Range Comments POC-GLUCOSE METER (BEAKER) 233 mg/dL 70-110 : TESTED AT [facility] [address] (test olsc=5995) [facility], [address]: [place] [employer] MZ=[id number] for [facility] COMPREHENSIVE METABOLIC [id number] 06:26:00 Test Item Value Reference Range Comments TOTAL PROTEIN (BEAKER) 5.6 gm/dL 6.0-8.3 (test nhav=982) ALBUMIN (BEAKER) (test 2.9 g/dL 3.5-5.0 lmkh=6501) ALKALINE PHOSPHATASE 86 U/L 40-150 (BEAKER) (test fksy=967) BILIRUBIN TOTAL (BEAKER) 1.2 mg/dL 0.2-1.2 (test ltxr=098) SODIUM (BEAKER) (test 137 meq/L 136-145 jxkh=009) POTASSIUM (BEAKER) (test 4.3 meq/L 3.5-5.1 jfxq=823) CHLORIDE (BEAKER) (test 99 meq/L 98-107 tjxo=276) CO2 (BEAKER) (test 34 meq/L 22-29 hhxq=743) BLOOD UREA NITROGEN 27 mg/dL 7-21 (BEAKER) (test opcg=170) CREATININE (BEAKER) (test 1.76 mg/dL 0.57-1.25 biqp=545) GLUCOSE RANDOM (BEAKER) 246 mg/dL 70-105 (test uxkq=844) CALCIUM (BEAKER) (test 8.1 mg/dL 8.4-10.2 chas=457) AST (SGOT) (BEAKER) (test 26 U/L 5-34 huwx=601) ALT (SGPT) (BEAKER) (test 15 U/L 6-55 icii=304) EGFR (BEAKER) (test 29 mL/min/1.73 sq m ESTIMATED GFR IS NOT hzuz=3615) ACCURATE CREATININE CLEARANCE IN PREDICTING GLOMERULAR FILTRATION RATE. ESTIMATED GFR IS NOT APPLICABLE FOR DIALYSIS PATIENTS. [id number] 06:13:00 Test Item Value Reference Range Comments MAGNESIUM (BEAKER) (test xtoy=561) 2.1 mg/dL 1.6-2.6 CBC W/PLT COUNT & AUTO [id number] 05:34:00 Test Item Value Reference Range Comments WHITE BLOOD CELL COUNT (BEAKER) (test ugau=461) 4.7 K/ L 3.5-10.5 RED BLOOD CELL COUNT (BEAKER) (test zcms=839) 2.99 M/ L 3.93-5.22 HEMOGLOBIN (BEAKER) (test rjsv=602) 7.9 GM/DL 11.2-15.7 HEMATOCRIT (BEAKER) (test fccn=918) 25.9 % 34.1-44.9 MEAN CORPUSCULAR VOLUME (BEAKER) (test erta=263) 86.6 fL 79.4-94.8 MEAN CORPUSCULAR HEMOGLOBIN (BEAKER) (test 26.4 pg 25.6-32.2 skdb=386) MEAN CORPUSCULAR HEMOGLOBIN CONC (BEAKER) (test 30.5 GM/DL 32.2-35.5 qpqj=796) RED CELL DISTRIBUTION WIDTH (BEAKER) (test 15.3 % 11.7-14.4 zndd=350) PLATELET COUNT (BEAKER) (test nfpi=275) 103 K/CU MM 150-450 MEAN PLATELET VOLUME (BEAKER) (test mdwj=989) 9.3 fL 9.4-12.3 NUCLEATED RED BLOOD CELLS (BEAKER) (test 0 /100 WBC 0-0 hlyv=792) NEUTROPHILS RELATIVE PERCENT (BEAKER) (test 51 % pzqc=824) LYMPHOCYTES RELATIVE PERCENT (BEAKER) (test 32 % ryhs=720) MONOCYTES RELATIVE PERCENT (BEAKER) (test 10 % fqsg=321) EOSINOPHILS RELATIVE PERCENT (BEAKER) (test 6 % ieer=668) BASOPHILS RELATIVE PERCENT (BEAKER) (test 2 % pkwv=842) NEUTROPHILS ABSOLUTE COUNT (BEAKER) (test 2.38 K/ L 1.56-6.13 kjbv=844) LYMPHOCYTES ABSOLUTE COUNT (BEAKER) (test 1.52 K/ L 1.18-3.74 svwt=559) MONOCYTES ABSOLUTE COUNT (BEAKER) (test 0.47 K/ L 0.24-0.36 jltc=211) EOSINOPHILS ABSOLUTE COUNT (BEAKER) (test 0.26 K/ L 0.04-0.36 iqef=009) BASOPHILS ABSOLUTE COUNT (BEAKER) (test 0.07 K/ L 0.01-0.08 vtqf=441) IMMATURE GRANULOCYTES-RELATIVE PERCENT (BEAKER) 0 % 0-1 (test wbwl=5065) POCT-GLUCOSE [id number] 20:47:00 Test Item Value Reference Range Comments POC-GLUCOSE METER (BEAKER) 283 mg/dL 70-110 : Notified RN/MD: TESTED AT (test zgky=3650) [address], [address]: [place] HM=[id number] for CHRISS BAUMAN, CHEST, 1 VIEW, NON [id number] 19:35:00Reason for exam:->pleural effusion, shortness of breathShould this be performed at the bedside?-> YesFINAL REPORT EXAM: Chest one view COMPARISON: November 03, 2019 CLINICAL HISTORY: Pleural effusion FINDINGS: Elevation of the right hemidiaphragm is again noted which may be associated with effusion. However, phrenic nerve paralysis or diaphragmatic eventration cannot be excluded. The cardiac size is mildly prominent. There is bilateral pulmonary vascular congestion. There is no evidence of pneumothorax. The regional osseous structures are normal. Signed: Jocelynn Rodney MDReport Verified Date/Time: 01/2020 19:35:04 Reading Location: [address] Transitional Reading Room POCT- GLUCOSE [id number] 17:32:00 Test Item Value Reference Range Comments POC-GLUCOSE METER (BEAKER) 285 mg/dL 70-110 : TESTED AT [address] (test tskf=6312) [facility], [address]: Blind Lacer/Vise Hand IO=[id number] for VIKASH SYLVIA POCT-GLUCOSE [id number] 07:57:00 Test Item Value Reference Range Comments POC-GLUCOSE METER (BEAKER) 257 mg/dL 70-110 : TESTED AT [address] (test idhv=4348) [facility], [address]: Blind Lacer/Vise Hand HO=[id number] for VIKASH SYLVIA [id number] 06:35:00 Test Item Value Reference Range Comments MAGNESIUM (BEAKER) (test bbnl=293) 1.6 mg/dL 1.6-2.6 COMPREHENSIVE METABOLIC [id number] 06:35:00 Test Item Value Reference Range Comments TOTAL PROTEIN (BEAKER) 5.5 gm/dL 6.0-8.3 (test tryp=568) ALBUMIN (BEAKER) (test 2.9 g/dL 3.5-5.0 gilq=9086) ALKALINE PHOSPHATASE 85 U/L 40-150 (BEAKER) (test gkan=875) BILIRUBIN TOTAL (BEAKER) 1.2 mg/dL 0.2-1.2 (test qanq=144) SODIUM (BEAKER) (test 139 meq/L 136-145 xutp=704) POTASSIUM (BEAKER) (test 3.6 meq/L 3.5-5.1 hcnk=131) CHLORIDE (BEAKER) (test 99 meq/L 98-107 uadx=502) CO2 (BEAKER) (test 36 meq/L 22-29 fcmj=370) BLOOD UREA NITROGEN 29 mg/dL 7-21 (BEAKER) (test exrp=263) CREATININE (BEAKER) (test 1.65 mg/dL 0.57-1.25 izrq=179) GLUCOSE RANDOM (BEAKER) 261 mg/dL 70-105 (test krgc=898) CALCIUM (BEAKER) (test 8.0 mg/dL 8.4-10.2 caqe=745) AST (SGOT) (BEAKER) (test 27 U/L 5-34 iqfu=206) ALT (SGPT) (BEAKER) (test 17 U/L 6-55 uhzu=922) EGFR (BEAKER) (test 32 mL/min/1.73 sq m ESTIMATED GFR IS NOT cbhp=8101) ACCURATE CREATININE CLEARANCE IN PREDICTING GLOMERULAR FILTRATION RATE. ESTIMATED GFR IS NOT APPLICABLE FOR DIALYSIS PATIENTS. CALCIUM, [id number] 06:02:00 Test Item Value Reference Range Comments CALCIUM IONIZED (BEAKER) (test cxkj=394) 1.04 mmol/L 1.12-1.27 PH, BLOOD (BEAKER) (test pene=3732) 7.38 [id number] 05:22:00 Test Item Value Reference Range Comments PARTIAL THROMBOPLASTIN TIME (BEAKER) (test 42.6 seconds 22.5-36.0 lpdx=461) PROTHROMBIN TIME/[id number] 05:21:00 Test Item Value Reference Range Comments PROTIME (BEAKER) (test nsth=990) 15.2 seconds 11.9-14.2 INR (BEAKER) (test crvy=812) 1.2 <=5.9 Effective 04/01/2019: PT Reference Range ChangeNew: 11.9-14.2 Previous: 11.7- 14.7RECOMMENDED COUMADIN/WARFARIN INR THERAPY RANGESSTANDARD DOSE: 2.0-3.0 Includes: PROPHYLAXIS for venous thrombosis, systemic embolization; TREATMENT for venous thrombosis and/or pulmonary embolus.HIGH RISK: Target INR is2.5-3.5 for patients wiht mechanical heart valves.CBC W/PLT COUNT & AUTO [id number] 05:13:00 Test Item Value Reference Range Comments WHITE BLOOD CELL COUNT (BEAKER) (test szzj=400) 4.4 K/ L 3.5-10.5 RED BLOOD CELL COUNT (BEAKER) (test tuuc=583) 2.94 M/ L 3.93-5.22 HEMOGLOBIN (BEAKER) (test bvxb=636) 7.7 GM/DL 11.2-15.7 HEMATOCRIT (BEAKER) (test itkw=027) 25.3 % 34.1-44.9 MEAN CORPUSCULAR VOLUME (BEAKER) (test pnrj=711) 86.1 fL 79.4-94.8 MEAN CORPUSCULAR HEMOGLOBIN (BEAKER) (test 26.2 pg 25.6-32.2 btnb=811) MEAN CORPUSCULAR HEMOGLOBIN CONC (BEAKER) (test 30.4 GM/DL 32.2-35.5 rfjg=561) RED CELL DISTRIBUTION WIDTH (BEAKER) (test 15.2 % 11.7-14.4 abtf=480) PLATELET COUNT (BEAKER) (test euwp=966) 109 K/CU MM 150-450 MEAN PLATELET VOLUME (BEAKER) (test ohmk=450) 9.2 fL 9.4-12.3 NUCLEATED RED BLOOD CELLS (BEAKER) (test 0 /100 WBC 0-0 dhqd=191) NEUTROPHILS RELATIVE PERCENT (BEAKER) (test 52 % ncms=616) LYMPHOCYTES RELATIVE PERCENT (BEAKER) (test 32 % algy=428) MONOCYTES RELATIVE PERCENT (BEAKER) (test 8 % ktoz=624) EOSINOPHILS RELATIVE PERCENT (BEAKER) (test 6 % bvwe=834) BASOPHILS RELATIVE PERCENT (BEAKER) (test 1 % rqnp=445) NEUTROPHILS ABSOLUTE COUNT (BEAKER) (test 2.26 K/ L 1.56-6.13 pqvf=997) LYMPHOCYTES ABSOLUTE COUNT (BEAKER) (test 1.41 K/ L 1.18-3.74 ogqc=505) MONOCYTES ABSOLUTE COUNT (BEAKER) (test 0.36 K/ L 0.24-0.36 serh=853) EOSINOPHILS ABSOLUTE COUNT (BEAKER) (test 0.26 K/ L 0.04-0.36 ctlz=676) BASOPHILS ABSOLUTE COUNT (BEAKER) (test 0.06 K/ L 0.01-0.08 xyvj=920) IMMATURE GRANULOCYTES-RELATIVE PERCENT (BEAKER) 0 % 0-1 (test kizo=7389) POCT-GLUCOSE [id number] 21:33:00 Test Item Value Reference Range Comments POC-GLUCOSE METER (BEAKER) 251 mg/dL 70-110 : TESTED AT [address] (test mitb=3509) [facility], [address]: Blind Lacer/Vise Hand CZ=[id number] for DWIGHT HASSAN BODY FLUID CELL COUNT WITH [id number] 19:02:00 Test Item Value Reference Range Comments APPEARANCE FLUID (BEAKER) (test ietg=526) Hazy Clear COLOR FLUID (BEAKER) (test kpic=266) Yellow Colorless, Straw RBC FLUID (BEAKER) (test yhmj=260) 5000 /cu mm <=1 ADJUSTED WBC FLUID (BEAKER) (test qbmp=0091) 168 /cu mm <=5 LINING CELLS (BEAKER) (test qobu=9871) 3 /cu mm <=1 NEUTROPHILS FLUID (BEAKER) (test vsgw=5335) 2 % LYMPHS FLUID (BEAKER) (test fyps=943) 14 % MONO/MACROPHAGE FLUID (BEAKER) (test jxhi=200) 84 % EOSINOPHILS FLUID (BEAKER) (test qhec=946) 0 % BASO FLUID (BEAKER) (test vezr=027) 0 % CONTAINER BODY FLUID (BEAKER) (test anyw=1610) EDTA Tube POCT-GLUCOSE [id number] 18:32:00 Test Item Value Reference Range Comments POC-GLUCOSE METER (BEAKER) 256 mg/dL 70-110 : TESTED AT [address] (test jccg=8840) [facility], [address]: Blind Lacer/Vise Hand WG=[id number] for SYLVIA SUH U/S, [id number] 18:24:00Labs to be ordered:->Body Fluid Culture ( w/Gram Stain, C\\T\\S)Reason for exam:->ascitesFINAL REPORT CLINICAL HISTORY: ascites COMPARISON: None PAPER RULER: Deshaun Doan DO, CRICKET MEDICATIONS:Please see nursing note. ESTIMATED BLOOD LOSS: < 5cc SAMPLE: As below ANESTHESIA: Local Lidocaine. PROCEDURE: The risks, benefits, and alternatives to the procedure were discussed with the patient. All questions were answered and written informed consent was obtained. A universal timeout was performed prior to starting the procedure. All elements of maximal sterile barrier technique were utilized for this procedure, including utilization of sterile scrub solution for skin prep, a large sterile sheet to cover the areas of the patient that were not prepped, and hand hygiene, mask, head covering, and sterile gown for performing radiologist and scrub technologist. A limited ultrasound examination of the abdomen demonstrated a pocket of ascites in the right lower quadrant suitable for percutaneous drainage. After infiltrating the skin with lidocaine, a 5 Erit[place] One- stepcatheter was advanced into the peritoneal space. Approximately 3 L of straw -colored fluid was removed. The catheter was removed without immediate complication. A sample was sent for analysis. Steriledressing was placed. IMPRESSION: Successful ultrasound-guided diagnostic and therapeutic paracentesis. Signed: Deshaun Doan MDReport Verified Date/Time: 11/05/2019 18: 24:03 Reading Location: [place] [address] Angio Body Reading Room PUL PERF IMAGING, PARTIC, [id number] 14:47:00FINAL REPORT PROCEDURE: V/Q LUNG SCAN CPT CODE: 15462 INDICATION: Positive d-dimer, PE suspected, intermediate probability, dyspnea PROTOCOL: 9.08 mCi of Xe- 133 gas was administered by inhalation. Single breath and rebreathing/washout images were obtained in the anterior and the posterior projections. 4.3 mCi of Tc-99m MAA was then injected intravenously, and static perfusion images were obtained in multiple projections. FINDINGS: Ventilation: Initial tracer distribution is is irregular and decreased in the right mid lung zone and shows a markedly enlarged cardiac silhouette. Washout proceeds normally. Perfusion: Tracer distribution matches the ventilation. IMPRESSION: 1. Low probability of acute pulmonary embolization.2. There is nonsegmental parenchymal abnormalities in the right lung and the cardiac silhouette is markedly enlarged.. Signed: Cordell Ng MDReport Verified Date/Time: 2019 14:47:43 Reading Location: [address] Reading Room POCT- GLUCOSE [id number] 12:25:00 Test Item Value Reference Range Comments POC-GLUCOSE METER (BEAKER) 284 mg/dL 70-110 : TESTED AT [facility] [address] [facility] (test lnbb=5062) [facility], [address]: Blind Lacer/Vise Hand VK=[id number] for SYLVIA SUH CBC W/PLT COUNT & AUTO [id number] 12:08:00 Test Item Value Reference Range Comments WHITE BLOOD CELL COUNT (BEAKER) (test lybf=785) 5.8 K/ L 3.5-10.5 RED BLOOD CELL COUNT (BEAKER) (test qoac=246) 3.17 M/ L 3.93-5.22 HEMOGLOBIN (BEAKER) (test aqfx=706) 8.3 GM/DL 11.2-15.7 HEMATOCRIT (BEAKER) (test erhi=399) 27.3 % 34.1-44.9 MEAN CORPUSCULAR VOLUME (BEAKER) (test ojjk=964) 86.1 fL 79.4-94.8 MEAN CORPUSCULAR HEMOGLOBIN (BEAKER) (test 26.2 pg 25.6-32.2 bdsk=474) MEAN CORPUSCULAR HEMOGLOBIN CONC (BEAKER) (test 30.4 GM/DL 32.2-35.5 fwfr=466) RED CELL DISTRIBUTION WIDTH (BEAKER) (test 15.3 % 11.7-14.4 gban=711) PLATELET COUNT (BEAKER) (test hcnr=407) 128 K/CU MM 150-450 MEAN PLATELET VOLUME (BEAKER) (test dfxv=765) 8.9 fL 9.4-12.3 NUCLEATED RED BLOOD CELLS (BEAKER) (test 0 /100 WBC 0-0 ulws=494) NEUTROPHILS RELATIVE PERCENT (BEAKER) (test 51 % otur=512) LYMPHOCYTES RELATIVE PERCENT (BEAKER) (test 32 % hdti=375) MONOCYTES RELATIVE PERCENT (BEAKER) (test 8 % ojrf=549) EOSINOPHILS RELATIVE PERCENT (BEAKER) (test 7 % qsev=557) BASOPHILS RELATIVE PERCENT (BEAKER) (test 2 % jzzd=560) NEUTROPHILS ABSOLUTE COUNT (BEAKER) (test 2.96 K/ L 1.56-6.13 ehfa=735) LYMPHOCYTES ABSOLUTE COUNT (BEAKER) (test 1.81 K/ L 1.18-3.74 oevm=399) MONOCYTES ABSOLUTE COUNT (BEAKER) (test 0.47 K/ L 0.24-0.36 geqs=503) EOSINOPHILS ABSOLUTE COUNT (BEAKER) (test 0.41 K/ L 0.04-0.36 hmie=948) BASOPHILS ABSOLUTE COUNT (BEAKER) (test 0.09 K/ L 0.01-0.08 djoe=480) IMMATURE GRANULOCYTES-RELATIVE PERCENT (BEAKER) 0 % 0-1 (test qspw=1259) COMPREHENSIVE METABOLIC [id number] 11:58:00 Test Item Value Reference Range Comments TOTAL PROTEIN (BEAKER) 5.4 gm/dL 6.0-8.3 (test kfqp=866) ALBUMIN (BEAKER) (test 2.6 g/dL 3.5-5.0 zxks=5707) ALKALINE PHOSPHATASE 98 U/L 40-150 (BEAKER) (test iqrw=018) BILIRUBIN TOTAL (BEAKER) 1.2 mg/dL 0.2-1.2 (test jhre=415) SODIUM (BEAKER) (test 139 meq/L 136-145 qiqr=324) POTASSIUM (BEAKER) (test 3.5 meq/L 3.5-5.1 xzro=207) CHLORIDE (BEAKER) (test 98 meq/L 98-107 pyhn=642) CO2 (BEAKER) (test 36 meq/L 22-29 knqd=561) BLOOD UREA NITROGEN 33 mg/dL 7-21 (BEAKER) (test phed=889) CREATININE (BEAKER) (test 1.85 mg/dL 0.57-1.25 tcef=300) GLUCOSE RANDOM (BEAKER) 285 mg/dL 70-105 (test buiv=526) CALCIUM (BEAKER) (test 8.0 mg/dL 8.4-10.2 cunq=239) AST (SGOT) (BEAKER) (test 30 U/L 5-34 inhq=208) ALT (SGPT) (BEAKER) (test 18 U/L 6-55 jkmv=233) EGFR (BEAKER) (test 28 mL/min/1.73 sq m ESTIMATED GFR IS NOT cyai=8761) ACCURATE CREATININE CLEARANCE IN PREDICTING GLOMERULAR FILTRATION RATE. ESTIMATED GFR IS NOT APPLICABLE FOR DIALYSIS PATIENTS. [id number] 11:55:00 Test Item Value Reference Range Comments MAGNESIUM (BEAKER) (test ebyw=674) 1.5 mg/dL 1.6-2.6 [id number] 11:45:00 Test Item Value Reference Range Comments PROTIME (BEAKER) (test wabv=866) 14.9 seconds 11.9-14.2 INR (BEAKER) (test tyka=040) 1.2 <=5.9 PARTIAL THROMBOPLASTIN TIME (BEAKER) (test 45.9 seconds 22.5-36.0 wgdz=895) Effective 04/01/2019: PT Reference Range ChangeNew: 11.9-14.2 Previous: 11.7- 14.7RECOMMENDED COUMADIN/WARFARIN INR THERAPY RANGESSTANDARD DOSE: 2.0-3.0 Includes: PROPHYLAXIS for venous thrombosis, systemic embolization; TREATMENT for venous thrombosis and/or pulmonary embolus.HIGH RISK: Target INR is2.5-3.5 for patients wiht mechanical heart valves.POCT-GLUCOSE [id number] 08:23:00 Test Item Value Reference Range Comments POC-GLUCOSE METER (BEAKER) 223 mg/dL 70-110 : TESTED AT [facility] [address] [facility] (test iqii=1595) [facility], [address]: Blind Lacer/Vise Hand FT=[id number] for VIKASH SYLVIA POCT-GLUCOSE [id number] 16:52:00 Test Item Value Reference Range Comments POC-GLUCOSE METER (BEAKER) 292 mg/dL 70-110 : TESTED AT [facility] [address] [facility] (test akdk=5477) [facility], [address]: Blind Lacer/Vise Hand MO=[id number] for QUEEN TRENT POCT-GLUCOSE [id number] 12:25:00 Test Item Value Reference Range Comments POC-GLUCOSE METER (BEAKER) 295 mg/dL 70-110 : TESTED AT [facility] [address] [facility] (test ovru=4779) [facility], [address]: Blind Lacer/Vise Hand ZT=[id number] for QUEEN TRENT POCT-GLUCOSE [id number] 07:22:00 Test Item Value Reference Range Comments POC-GLUCOSE METER (BEAKER) 247 mg/dL 70-110 : TESTED AT [facility] [address] [facility] (test kocw=3836) [facility], [address]: Blind Lacer/Vise Hand KN=[id number] for QUEEN TRENT BASIC METABOLIC [id number] 06:43:00 Test Item Value Reference Range Comments SODIUM (BEAKER) (test 136 meq/L 136-145 hwzv=533) POTASSIUM (BEAKER) (test 3.5 meq/L 3.5-5.1 cykk=063) CHLORIDE (BEAKER) (test 100 meq/L 98-107 ohgj=553) CO2 (BEAKER) (test 30 meq/L 22-29 ucqe=987) BLOOD UREA NITROGEN 43 mg/dL 7-21 (BEAKER) (test xbdp=308) CREATININE (BEAKER) (test 1.82 mg/dL 0.57-1.25 vxdt=617) GLUCOSE RANDOM (BEAKER) 246 mg/dL 70-105 (test ikcl=391) CALCIUM (BEAKER) (test 8.0 mg/dL 8.4-10.2 upak=801) EGFR (BEAKER) (test 28 mL/min/1.73 sq m ESTIMATED GFR IS NOT pcdi=6902) ACCURATE CREATININE CLEARANCE IN PREDICTING GLOMERULAR FILTRATION RATE. ESTIMATED GFR IS NOT APPLICABLE FOR DIALYSIS PATIENTS. [id number] 06:30:00 Test Item Value Reference Range Comments PHOSPHORUS (BEAKER) (test qgsx=060) 3.2 mg/dL 2.3-4.7 [id number] 06:30:00 Test Item Value Reference Range Comments MAGNESIUM (BEAKER) (test wgpl=704) 1.7 mg/dL 1.6-2.6 B-TYPE NATRIURETIC FACTOR (BNP)[id number] 06:18:00 Test Item Value Reference Range Comments B-TYPE NATRIURETIC PEPTIDE (BEAKER) (test 2226 pg/mL 0-100 bduc=880) CALCIUM, [id number] 05:54:00 Test Item Value Reference Range Comments CALCIUM IONIZED (BEAKER) (test wgfj=613) 1.05 mmol/L 1.12-1.27 PH, BLOOD (BEAKER) (test vqmz=5157) 7.35 CBC W/PLT COUNT & AUTO [id number] 05:53:00 Test Item Value Reference Range Comments WHITE BLOOD CELL COUNT (BEAKER) (test gmhr=589) 5.5 K/ L 3.5-10.5 RED BLOOD CELL COUNT (BEAKER) (test mbun=436) 2.88 M/ L 3.93-5.22 HEMOGLOBIN (BEAKER) (test ljfy=250) 7.6 GM/DL 11.2-15.7 HEMATOCRIT (BEAKER) (test aqed=993) 24.8 % 34.1-44.9 MEAN CORPUSCULAR VOLUME (BEAKER) (test npjm=635) 86.1 fL 79.4-94.8 MEAN CORPUSCULAR HEMOGLOBIN (BEAKER) (test 26.4 pg 25.6-32.2 jlns=939) MEAN CORPUSCULAR HEMOGLOBIN CONC (BEAKER) (test 30.6 GM/DL 32.2-35.5 juae=412) RED CELL DISTRIBUTION WIDTH (BEAKER) (test 15.4 % 11.7-14.4 nrdh=468) PLATELET COUNT (BEAKER) (test pvoy=440) 130 K/CU MM 150-450 MEAN PLATELET VOLUME (BEAKER) (test nymn=968) 9.0 fL 9.4-12.3 NUCLEATED RED BLOOD CELLS (BEAKER) (test 0 /100 WBC 0-0 xxbg=290) NEUTROPHILS RELATIVE PERCENT (BEAKER) (test 53 % qqbe=885) LYMPHOCYTES RELATIVE PERCENT (BEAKER) (test 30 % ttra=190) MONOCYTES RELATIVE PERCENT (BEAKER) (test 9 % fdug=399) EOSINOPHILS RELATIVE PERCENT (BEAKER) (test 6 % aarr=070) BASOPHILS RELATIVE PERCENT (BEAKER) (test 1 % wwhm=463) NEUTROPHILS ABSOLUTE COUNT (BEAKER) (test 2.91 K/ L 1.56-6.13 jwof=660) LYMPHOCYTES ABSOLUTE COUNT (BEAKER) (test 1.63 K/ L 1.18-3.74 lrkb=561) MONOCYTES ABSOLUTE COUNT (BEAKER) (test 0.50 K/ L 0.24-0.36 sweb=825) EOSINOPHILS ABSOLUTE COUNT (BEAKER) (test 0.34 K/ L 0.04-0.36 xaxs=628) BASOPHILS ABSOLUTE COUNT (BEAKER) (test 0.07 K/ L 0.01-0.08 pgsb=418) IMMATURE GRANULOCYTES-RELATIVE PERCENT (BEAKER) 0 % 0-1 (test wicn=2287) POCT-GLUCOSE [id number] 21:40:00 Test Item Value Reference Range Comments POC-GLUCOSE METER (BEAKER) 265 mg/dL 70-110 : TESTED AT [facility] [address] [facility] (test zfwf=0228) [facility], [address]: Blind Lacer/Vise Hand ZP=[id number] for DWIGHT HASSAN POCT-GLUCOSE [id number] 16:52:00 Test Item Value Reference Range Comments POC-GLUCOSE METER (BEAKER) 296 mg/dL 70-110 : TESTED AT [facility] [address] [facility] (test xmvk=7189) [facility], [address]: Blind Lacer/Vise Hand XJ=[id number] for QUEEN TRENT [id number] 15:42:00 Test Item Value Reference Range Comments D-DIMER QUANTITATIVE (BEAKER) (test hcqr=207) 2.22 MG/L FEU <0.50 Intended Use: The D-Dimer Assay can be used to aid in the diagnosis of Deep Vein Thrombosis (DVT) and Pulmonary Embolism Disease (PED).In patients with low pre-test probability, various studies concerning STA Liatest D-dimer test have reported that with a cutoff value of 0.50 MG/L FEU, the Negative Predictive Value (NPV) regarding the exclusion of thrombosis is within 95-100% range.RAD, CHEST, 1 VIEW, NON [id number] 14:54:00Reason for exam:->hypoxiaShould this be performed at the bedside?->YesFINAL REPORT RAD , CHEST, 1 VIEW, NON DEPT INDICATION: hypoxia COMPARISON: 01 November 2019 FINDINGS: Portable frontal view of the chest. IMPRESSION: Support Lines: None. Lungsand pleura: Moderate right effusion. Associated relaxation atelectasis. No pneumothorax.Heart and mediastinum: Stable contours. Additional findings: None. Signed: JR Zavaleta Robert MDReport Verified Date/Time: 11/03/2019 14:54:27 [facility] [place] [facility] POCT- GLUCOSE [id number] 12:24:00 Test Item Value Reference Range Comments POC-GLUCOSE METER (BEAKER) 304 mg/dL 70-110 : TESTED AT [facility] [address] [facility] (test rezi=4622) [facility], [address]: Blind Lacer/Vise Hand QP=[id number] for NATHAN MARCANO POCT-GLUCOSE [id number] 07:21:00 Test Item Value Reference Range Comments POC-GLUCOSE METER (BEAKER) 254 mg/dL 70-110 : TESTED AT [place] [id number] [facility] (test rlbh=2884) [facility], [address]: Blind Lacer/Vise Hand BW=[id number] for NATHAN MARCANO COMPREHENSIVE METABOLIC [id number] 05:39:00 Test Item Value Reference Range Comments TOTAL PROTEIN (BEAKER) 5.6 gm/dL 6.0-8.3 (test tdrg=138) ALBUMIN (BEAKER) (test 2.8 g/dL 3.5-5.0 lzqb=0430) ALKALINE PHOSPHATASE 107 U/L 40-150 (BEAKER) (test dsnf=289) BILIRUBIN TOTAL (BEAKER) 1.7 mg/dL 0.2-1.2 (test zvgc=728) SODIUM (BEAKER) (test 134 meq/L 136-145 mble=019) POTASSIUM (BEAKER) (test 4.1 meq/L 3.5-5.1 muxh=888) CHLORIDE (BEAKER) (test 100 meq/L 98-107 xjok=952) CO2 (BEAKER) (test 28 meq/L 22-29 umre=383) BLOOD UREA NITROGEN 50 mg/dL 7-21 (BEAKER) (test vnda=610) CREATININE (BEAKER) (test 1.93 mg/dL 0.57-1.25 ebcd=279) GLUCOSE RANDOM (BEAKER) 300 mg/dL 70-105 (test vgsx=558) CALCIUM (BEAKER) (test 8.4 mg/dL 8.4-10.2 dsny=970) AST (SGOT) (BEAKER) (test 37 U/L 5-34 yglk=371) ALT (SGPT) (BEAKER) (test 24 U/L 6-55 uwyl=913) EGFR (BEAKER) (test 26 mL/min/1.73 sq m ESTIMATED GFR IS NOT yygv=4696) ACCURATE CREATININE CLEARANCE IN PREDICTING GLOMERULAR FILTRATION RATE. ESTIMATED GFR IS NOT APPLICABLE FOR DIALYSIS PATIENTS. [id number] 05:31:00 Test Item Value Reference Range Comments PHOSPHORUS (BEAKER) (test pedx=745) 3.6 mg/dL 2.3-4.7 [id number] 05:31:00 Test Item Value Reference Range Comments MAGNESIUM (BEAKER) (test pspb=947) 2.0 mg/dL 1.6-2.6 BILIRUBIN, [id number] 05:31:00 Test Item Value Reference Range Comments BILIRUBIN DIRECT (BEAKER) (test stla=326) 0.8 mg/dL 0.1-0.5 CBC W/PLT COUNT & AUTO [id number] 05:10:00 Test Item Value Reference Range Comments WHITE BLOOD CELL COUNT (BEAKER) (test izma=320) 6.1 K/ L 3.5-10.5 RED BLOOD CELL COUNT (BEAKER) (test odqn=277) 2.83 M/ L 3.93-5.22 HEMOGLOBIN (BEAKER) (test sjea=999) 7.4 GM/DL 11.2-15.7 HEMATOCRIT (BEAKER) (test idna=347) 24.2 % 34.1-44.9 MEAN CORPUSCULAR VOLUME (BEAKER) (test cann=029) 85.5 fL 79.4-94.8 MEAN CORPUSCULAR HEMOGLOBIN (BEAKER) (test 26.1 pg 25.6-32.2 cewc=343) MEAN CORPUSCULAR HEMOGLOBIN CONC (BEAKER) (test 30.6 GM/DL 32.2-35.5 aqew=771) RED CELL DISTRIBUTION WIDTH (BEAKER) (test 15.4 % 11.7-14.4 cdcu=253) PLATELET COUNT (BEAKER) (test lbum=667) 147 K/CU MM 150-450 MEAN PLATELET VOLUME (BEAKER) (test jzmg=525) 9.5 fL 9.4-12.3 NUCLEATED RED BLOOD CELLS (BEAKER) (test 0 /100 WBC 0-0 xhuo=275) NEUTROPHILS RELATIVE PERCENT (BEAKER) (test 66 % woiv=336) LYMPHOCYTES RELATIVE PERCENT (BEAKER) (test 20 % pcql=600) MONOCYTES RELATIVE PERCENT (BEAKER) (test 9 % wnpv=935) EOSINOPHILS RELATIVE PERCENT (BEAKER) (test 4 % kcsu=381) BASOPHILS RELATIVE PERCENT (BEAKER) (test 1 % etzc=830) NEUTROPHILS ABSOLUTE COUNT (BEAKER) (test 4.02 K/ L 1.56-6.13 jmqi=884) LYMPHOCYTES ABSOLUTE COUNT (BEAKER) (test 1.22 K/ L 1.18-3.74 oaof=672) MONOCYTES ABSOLUTE COUNT (BEAKER) (test 0.52 K/ L 0.24-0.36 kjno=838) EOSINOPHILS ABSOLUTE COUNT (BEAKER) (test 0.21 K/ L 0.04-0.36 eppu=170) BASOPHILS ABSOLUTE COUNT (BEAKER) (test 0.08 K/ L 0.01-0.08 hvfe=634) IMMATURE GRANULOCYTES-RELATIVE PERCENT (BEAKER) 0 % 0-1 (test iofq=5601) CALCIUM, [id number] 04:59:00 Test Item Value Reference Range Comments CALCIUM IONIZED (BEAKER) (test fozl=977) 1.12 mmol/L 1.12-1.27 PH, BLOOD (BEAKER) (test cxmr=1777) 7.37 POCT-GLUCOSE [id number] 20:53:00 Test Item Value Reference Range Comments POC-GLUCOSE METER (BEAKER) 338 mg/dL 70-110 : TESTED AT [address] (test unmv=3671) [facility], [address]: Blind Lacer/Vise Hand [id number]=[id number] for DEJUAN REINOSO POCT-GLUCOSE [id number] 17:43:00 Test Item Value Reference Range Comments POC-GLUCOSE METER (BEAKER) 304 mg/dL 70-110 : TESTED AT [address] (test femo=7443) [facility], [address]: Blind Lacer/Vise Hand FB=[id number] for EMILY DRISCOLL POCT-GLUCOSE [id number] 15:13:00 Test Item Value Reference Range Comments POC-GLUCOSE METER (BEAKER) 261 mg/dL 70-110 : TESTED AT [address] (test nhrt=2918) [facility], [address]: Blind Lacer/Vise Hand RD=[id number] for EMILY DRISCOLL POCT-GLUCOSE [id number] 14:56:00 Test Item Value Reference Range Comments POC-GLUCOSE METER (BEAKER) 153 mg/dL 70-110 : TESTED AT [facility] [address] [facility] (test xcvo=1836) [facility], [address]: Blind Lacer/Vise Hand [id number]=[id number] for EMILY DRISCOLL COMPREHENSIVE METABOLIC [id number] 05:00:00 Test Item Value Reference Range Comments TOTAL PROTEIN (BEAKER) 6.0 gm/dL 6.0-8.3 (test ngen=061) ALBUMIN (BEAKER) (test 3.0 g/dL 3.5-5.0 sycb=1174) ALKALINE PHOSPHATASE 122 U/L 40-150 (BEAKER) (test wtqh=091) BILIRUBIN TOTAL (BEAKER) 2.1 mg/dL 0.2-1.2 (test gnop=842) SODIUM (BEAKER) (test 136 meq/L 136-145 evnb=425) POTASSIUM (BEAKER) (test 4.4 meq/L 3.5-5.1 blnz=501) CHLORIDE (BEAKER) (test 102 meq/L 98-107 dzvn=370) CO2 (BEAKER) (test 28 meq/L 22-29 vymm=814) BLOOD UREA NITROGEN 60 mg/dL 7-21 (BEAKER) (test yyyn=254) CREATININE (BEAKER) (test 2.12 mg/dL 0.57-1.25 htai=270) GLUCOSE RANDOM (BEAKER) 162 mg/dL 70-105 (test vwqh=137) CALCIUM (BEAKER) (test 8.9 mg/dL 8.4-10.2 eepk=981) AST (SGOT) (BEAKER) (test 44 U/L 5-34 qhve=868) ALT (SGPT) (BEAKER) (test 26 U/L 6-55 nnrb=244) EGFR (BEAKER) (test 24 mL/min/1.73 sq m ESTIMATED GFR IS NOT vzgt=6747) ACCURATE CREATININE CLEARANCE IN PREDICTING GLOMERULAR FILTRATION RATE. ESTIMATED GFR IS NOT APPLICABLE FOR DIALYSIS PATIENTS. Specimen slightly [id number] 04:54:00 Test Item Value Reference Range Comments MAGNESIUM (BEAKER) (test mapk=785) 2.3 mg/dL 1.6-2.6 [id number] 04:54:00 Test Item Value Reference Range Comments PHOSPHORUS (BEAKER) (test meio=783) 3.6 mg/dL 2.3-4.7 URIC [id number] 04:54:00 Test Item Value Reference Range Comments URIC ACID (BEAKER) (test icjf=530) 11.6 mg/dL 2.6-7.2 Specimen slightly ictericB-TYPE NATRIURETIC FACTOR (BNP)2019-11-02 04:50:00 Test Item Value Reference Range Comments B-TYPE NATRIURETIC PEPTIDE (BEAKER) (test 2041 pg/mL 0-100 ajcx=691) [id number] 04:36:00 Test Item Value Reference Range Comments AMMONIA (BEAKER) (test tikt=734) 50 mol/L 18-72 CALCIUM, [id number] 04:36:00 Test Item Value Reference Range Comments CALCIUM IONIZED (BEAKER) (test yvqv=198) 1.14 mmol/L 1.12-1.27 PH, BLOOD (BEAKER) (test mxrr=9571) 7.35 CALCIUM, [id number] 04:36:00 Test Item Value Reference Range Comments CALCIUM IONIZED (BEAKER) (test snkx=839) 1.11 mmol/L 1.12-1.27 PH, BLOOD (BEAKER) (test xbkp=9433) 7.37 CBC W/PLT COUNT & AUTO [id number] 04:28:00 Test Item Value Reference Range Comments WHITE BLOOD CELL COUNT (BEAKER) (test ipog=416) 5.8 K/ L 3.5-10.5 RED BLOOD CELL COUNT (BEAKER) (test evua=184) 2.77 M/ L 3.93-5.22 HEMOGLOBIN (BEAKER) (test eurv=292) 7.2 GM/DL 11.2-15.7 HEMATOCRIT (BEAKER) (test fibf=834) 23.5 % 34.1-44.9 MEAN CORPUSCULAR VOLUME (BEAKER) (test zrdq=987) 84.8 fL 79.4-94.8 MEAN CORPUSCULAR HEMOGLOBIN (BEAKER) (test 26.0 pg 25.6-32.2 oykb=394) MEAN CORPUSCULAR HEMOGLOBIN CONC (BEAKER) (test 30.6 GM/DL 32.2-35.5 szlf=515) RED CELL DISTRIBUTION WIDTH (BEAKER) (test 15.5 % 11.7-14.4 qkeg=947) PLATELET COUNT (BEAKER) (test ijll=211) 131 K/CU MM 150-450 MEAN PLATELET VOLUME (BEAKER) (test hwht=444) 9.0 fL 9.4-12.3 NUCLEATED RED BLOOD CELLS (BEAKER) (test 0 /100 WBC 0-0 cird=448) NEUTROPHILS RELATIVE PERCENT (BEAKER) (test 59 % gkat=329) LYMPHOCYTES RELATIVE PERCENT (BEAKER) (test 25 % ptsp=236) MONOCYTES RELATIVE PERCENT (BEAKER) (test 9 % lypg=756) EOSINOPHILS RELATIVE PERCENT (BEAKER) (test 5 % tvlb=650) BASOPHILS RELATIVE PERCENT (BEAKER) (test 1 % fmyb=155) NEUTROPHILS ABSOLUTE COUNT (BEAKER) (test 3.43 K/ L 1.56-6.13 eksb=796) LYMPHOCYTES ABSOLUTE COUNT (BEAKER) (test 1.44 K/ L 1.18-3.74 fhnv=012) MONOCYTES ABSOLUTE COUNT (BEAKER) (test 0.54 K/ L 0.24-0.36 tdli=938) EOSINOPHILS ABSOLUTE COUNT (BEAKER) (test 0.29 K/ L 0.04-0.36 ophb=434) BASOPHILS ABSOLUTE COUNT (BEAKER) (test 0.07 K/ L 0.01-0.08 faed=085) IMMATURE GRANULOCYTES-RELATIVE PERCENT (BEAKER) 0 % 0-1 (test jcok=3768) POCT-GLUCOSE [id number] 22:56:00 Test Item Value Reference Range Comments POC-GLUCOSE METER (BEAKER) 157 mg/dL 70-110 : [facility] [address] [facility] (test elwu=7497) [facility], [address]: Blind Lacer/Vise Hand TO=[id number] for LAKHWINDER VASQUEZ U/S, RENAL, [id number] 22:42:00Reason for exam:->AKIShould this be performed at the bedside?->YesFINAL REPORT Renal ultrasound dated 11/01/2019 CLINICAL HISTORY: HEMALATHA COMPARISON: 12/02/2018 Comment : Real-time transabdominal renal ultrasound was performed. The examination is limited by bowel gas, inability to position the patient and by inability to breath-hold during imaging. Right kidney measures 11.0 x 5.7 x 4.1 cm. Left kidney measures 11.9 x 5.8 x 4.9 cm. Right renal cortex measures 1.8 cm. Left renal cortex measures 1.2 cm. Renal parenchymal echogenicity: Grosslynormal No hydronephrosis, nephrolithiasis or solid mass is seen. No cyst is identified on eitherkidney. Doppler ultrasound demonstrates a patent main renal artery and vein on the right. The left renal vasculature is obscured by bowel gas and breathing artifact. A Fleming catheter decompresses the urinary bladder. There is moderate volume ascites. Impression: Significantly limited examination, asdescribed. Grossly unremarkable ultrasound appearance of the kidneys. Ascites. Signed: Linda Khoury Verified Date/Time: 11/01/2019 22:42:07 10: 42 PMPOCT-GLUCOSE [id number] 16:58:00 Test Item Value Reference Range Comments POC-GLUCOSE METER (BEAKER) 188 mg/dL 70-110 : TESTED AT [address] (test cvvq=5346) [facility], [address]: Blind Lacer/Vise Hand ZF=[id number] for DRISCOLLEMILY Sims RAD, ABDOMEN/KUB, 1 VIEW [id number] 14:43:00Reason for exam:->Abdominal distenstionFINAL REPORT INDICATION:Abdominal distention. TECHNIQUE: Abdomen radiograph one view. FINDINGS / IMPRESSION:Air filled nondilated transverse colon and normal-appearing small bowel pattern. No bowel obstruction is suspected. Elevated right hemidiaphragm and TIPS are noted. Signed: Elena Carrera Verified Date/Time: 11/01/2019 14:43:24 Reading Location: [facility] C0X Ortho Consult Reading Room SODIUM, RANDOM [id number] 14:24:00 Test Item Value Reference Range Comments SODIUM URINE (BEAKER) (test upwq=103) < meq/L Reference Range: No NormalsCREATININE, RANDOM [id number] 14:21:00 Test Item Value Reference Range Comments CREATININE URINE (BEAKER) (test zulo=623) 165.0 mg/dL Reference Range: No NormalsPROTEIN, RANDOM [id number] 14:21:00 Test Item Value Reference Range Comments PROTEIN, URINE (BEAKER) (test ifuv=5586) 14 mg/dL 0-14 URINALYSIS W/ REFLEX URINE [id number] 13:54:00 Test Item Value Reference Range Comments COLOR (BEAKER) (test pkvj=526) Yellow CLARITY (BEAKER) (test aliz=089) Clear SPECIFIC GRAVITY UA (BEAKER) (test pjkx=070) 1.016 1.001-1.035 PH UA (BEAKER) (test gwui=554) 5.5 5.0-8.0 PROTEIN UA (BEAKER) (test cyun=996) Negative Negative GLUCOSE UA (BEAKER) (test qrnu=808) Negative Negative KETONES UA (BEAKER) (test efbu=947) Negative Negative BILIRUBIN UA (BEAKER) (test ikfi=149) Negative Negative BLOOD UA (BEAKER) (test haxj=417) Negative Negative NITRITE UA (BEAKER) (test wdlo=744) Negative Negative LEUKOCYTE ESTERASE UA (BEAKER) (test nscz=659) Negative Negative UROBILINOGEN UA (BEAKER) (test riaw=329) 0.2 mg/dL 0.2-1.0 RBC UA (BEAKER) (test lmve=524) 0 /HPF WBC UA (BEAKER) (test fhbr=697) 0 /HPF MUCUS (BEAKER) (test ylbg=7855) Rare SQUAMOUS EPITHELIAL (BEAKER) (test wbxz=155) < /HPF HYALINE CASTS (BEAKER) (test fhqx=434) 4 /LPF SOURCE(BEAKER) (test xmui=3844) RAD, CHEST, 1 VIEW, NON [id number] 13:16:00Reason for exam:->Fluid excess /SOBShould this be performed at the bedside?->YesFINAL REPORT INDICATION: Fluid excess/SOB COMPARISON: May 29, 2019 TECHNIQUE: Single frontal view of the chest. FINDINGS: Lungs and pleura: Lungs are hypoinflated. Spurious elevation of the right hemidiaphragm, unchanged. Trace right effusion versus minimal pleural thickening is unchanged. No tony airspace edema.Heart and mediastinum: Normal heart size. Unremarkable mediastinal contours.Osseous structures: No acute abnormality.Other: None. IMPRESSION: Lungs are hypoinflated. Trace right effusion versus minimal pleural thickening is unchanged. No tony airspace edema. Retrocardiac atelectasis and/or airspace disease (with acute infection not excluded) Signed: Elizabeth Mckinney Verified Date/Time: 11/01/2019 13:16:13 Reading Location: [address] Neuro Reading Room POCT-GLUCOSE [id number] 12:43: 00 Test Item Value Reference Range Comments POC-GLUCOSE METER (BEAKER) 207 mg/dL 70-110 : TESTED AT [address] (test yktd=8731) [facility], [address]: Blind Lacer/Vise Hand QF=[id number] for DRISCOLLMAYELAJADA POCT-GLUCOSE [id number] 08:25:00 Test Item Value Reference Range Comments POC-GLUCOSE METER (BEAKER) 212 mg/dL 70-110 : TESTED AT [address] (test jffv=4898) [facility], [address]: Blind Lacer/Vise Hand JK=[id number] for DRISCOLL, LAJADA T4, [id number] 07:43:00 Test Item Value Reference Range Comments FREE T4 (BEAKER) (test fxrn=017) 0.88 ng/dL 0.70-1.48 PROTHROMBIN [id number] 06:58:00 Test Item Value Reference Range Comments PROTIME (BEAKER) (test mrjj=832) 15.2 seconds 11.9-14.2 INR (BEAKER) (test ynzb=976) 1.2 <=5.9 Effective 04/01/2019: PT Reference Range ChangeNew: 11.9-14.2 Previous: 11.7- 14.7RECOMMENDED COUMADIN/WARFARIN INR THERAPY RANGESSTANDARD DOSE: 2.0-3.0 Includes: PROPHYLAXIS for venous thrombosis, systemic embolization; TREATMENT for venous thrombosis and/or pulmonary embolus.HIGH RISK: Target INR is2.5-3.5 for patients wiht mechanical heart valves.CBC W/PLT COUNT & AUTO [id number] 06:50:00 Test Item Value Reference Range Comments WHITE BLOOD CELL COUNT (BEAKER) (test njbv=645) 5.5 K/ L 3.5-10.5 RED BLOOD CELL COUNT (BEAKER) (test gxbz=951) 2.74 M/ L 3.93-5.22 HEMOGLOBIN (BEAKER) (test uvpu=721) 7.3 GM/DL 11.2-15.7 HEMATOCRIT (BEAKER) (test kvvp=691) 22.8 % 34.1-44.9 MEAN CORPUSCULAR VOLUME (BEAKER) (test xpvs=995) 83.2 fL 79.4-94.8 MEAN CORPUSCULAR HEMOGLOBIN (BEAKER) (test 26.6 pg 25.6-32.2 ojki=848) MEAN CORPUSCULAR HEMOGLOBIN CONC (BEAKER) (test 32.0 GM/DL 32.2-35.5 qmax=197) RED CELL DISTRIBUTION WIDTH (BEAKER) (test 15.7 % 11.7-14.4 hjke=086) PLATELET COUNT (BEAKER) (test iffn=911) 124 K/CU MM 150-450 MEAN PLATELET VOLUME (BEAKER) (test cues=651) 9.1 fL 9.4-12.3 NUCLEATED RED BLOOD CELLS (BEAKER) (test 0 /100 WBC 0-0 vklq=327) NEUTROPHILS RELATIVE PERCENT (BEAKER) (test 59 % nfur=411) LYMPHOCYTES RELATIVE PERCENT (BEAKER) (test 24 % umex=674) MONOCYTES RELATIVE PERCENT (BEAKER) (test 10 % lmil=294) EOSINOPHILS RELATIVE PERCENT (BEAKER) (test 6 % grrx=566) BASOPHILS RELATIVE PERCENT (BEAKER) (test 1 % teko=969) NEUTROPHILS ABSOLUTE COUNT (BEAKER) (test 3.22 K/ L 1.56-6.13 mnvf=845) LYMPHOCYTES ABSOLUTE COUNT (BEAKER) (test 1.33 K/ L 1.18-3.74 gfhs=117) MONOCYTES ABSOLUTE COUNT (BEAKER) (test 0.54 K/ L 0.24-0.36 qwns=881) EOSINOPHILS ABSOLUTE COUNT (BEAKER) (test 0.33 K/ L 0.04-0.36 bnut=867) BASOPHILS ABSOLUTE COUNT (BEAKER) (test 0.04 K/ L 0.01-0.08 puty=496) IMMATURE GRANULOCYTES-RELATIVE PERCENT (BEAKER) 0 % 0-1 (test zxas=7954) TSH/FREE T4 IF [id number] 06:32:00 Test Item Value Reference Range Comments THYROID STIMULATING HORMONE (BEAKER) (test 12.02 uIU/mL 0.35-4.94 uhjn=532) VITAMIN B12 AND [id number] 06:26:00 Test Item Value Reference Range Comments VITAMIN B12 (BEAKER) (test trwj=278) 1586 pg/mL 213-816 FOLATE (BEAKER) (test rewa=501) 11.2 ng/mL >=7.0 COMPREHENSIVE METABOLIC [id number] 06:13:00 Test Item Value Reference Range Comments TOTAL PROTEIN (BEAKER) 6.1 gm/dL 6.0-8.3 (test krdo=927) ALBUMIN (BEAKER) (test 3.1 g/dL 3.5-5.0 nmim=0135) ALKALINE PHOSPHATASE 122 U/L 40-150 (BEAKER) (test laag=061) BILIRUBIN TOTAL (BEAKER) 1.4 mg/dL 0.2-1.2 (test zujx=353) SODIUM (BEAKER) (test 133 meq/L 136-145 aeen=315) POTASSIUM (BEAKER) (test 4.6 meq/L 3.5-5.1 mdnw=412) CHLORIDE (BEAKER) (test 100 meq/L 98-107 nyny=278) CO2 (BEAKER) (test 24 meq/L 22-29 mkth=239) BLOOD UREA NITROGEN 64 mg/dL 7-21 (BEAKER) (test hbnt=707) CREATININE (BEAKER) (test 2.30 mg/dL 0.57-1.25 pvsg=248) GLUCOSE RANDOM (BEAKER) 249 mg/dL 70-105 (test qgkq=947) CALCIUM (BEAKER) (test 8.8 mg/dL 8.4-10.2 myvr=519) AST (SGOT) (BEAKER) (test 38 U/L 5-34 pgaf=158) ALT (SGPT) (BEAKER) (test 24 U/L 6-55 nlcn=316) EGFR (BEAKER) (test 22 mL/min/1.73 sq m ESTIMATED GFR IS NOT djqo=6865) ACCURATE CREATININE CLEARANCE IN PREDICTING GLOMERULAR FILTRATION RATE. ESTIMATED GFR IS NOT APPLICABLE FOR DIALYSIS PATIENTS. POCT-GLUCOSE [id number] 01:48:00 Test Item Value Reference Range Comments POC-GLUCOSE METER (BEAKER) 263 mg/dL 70-110 : TESTED AT [facility] [address] [facility] (test avkd=1566) [facility], [address]: Blind Lacer/Vise Hand UC=[id number] for DWIGHT HASSAN HEPATIC FUNCTION [id number] 15:39:00 Test Item Value Reference Range Comments TOTAL PROTEIN (BEAKER) (test ztvo=322) 6.5 gm/dL 6.0-8.3 ALBUMIN (BEAKER) (test sclr=4544) 3.0 g/dL 3.5-5.0 BILIRUBIN TOTAL (BEAKER) (test qlej=531) 1.5 mg/dL 0.2-1.2 BILIRUBIN DIRECT (BEAKER) (test tczu=916) 0.7 mg/dL 0.1-0.5 ALKALINE PHOSPHATASE (BEAKER) (test wuws=428) 120 U/L 40-150 AST (SGOT) (BEAKER) (test jlkj=661) 34 U/L 5-34 ALT (SGPT) (BEAKER) (test xdxd=119) 21 U/L 6-55 BASIC METABOLIC [id number] 15:39:00 Test Item Value Reference Range Comments SODIUM (BEAKER) (test 135 meq/L 136-145 abla=862) POTASSIUM (BEAKER) (test 3.8 meq/L 3.5-5.1 ryya=351) CHLORIDE (BEAKER) (test 99 meq/L 98-107 vaee=748) CO2 (BEAKER) (test 31 meq/L 22-29 godc=658) BLOOD UREA NITROGEN 21 mg/dL 7-21 (BEAKER) (test ihkx=032) CREATININE (BEAKER) (test 1.70 mg/dL 0.57-1.25 swek=482) GLUCOSE RANDOM (BEAKER) 290 mg/dL 70-105 (test kaqa=050) CALCIUM (BEAKER) (test 8.4 mg/dL 8.4-10.2 qltx=098) EGFR (BEAKER) (test 31 mL/min/1.73 sq m ESTIMATED GFR IS NOT mcdm=2559) ACCURATE CREATININE CLEARANCE IN PREDICTING GLOMERULAR FILTRATION RATE. ESTIMATED GFR IS NOT APPLICABLE FOR DIALYSIS PATIENTS. PROTHROMBIN [id number] 15:39:00 Test Item Value Reference Range Comments PROTIME (BEAKER) (test ymvi=977) 14.2 seconds 11.9-14.2 INR (BEAKER) (test yqbt=178) 1.2 <=5.9 Effective 04/01/2019: PT Reference Range ChangeNew: 11.9-14.2 Previous: 11.7- 14.7RECOMMENDED COUMADIN/WARFARIN INR THERAPY RANGESSTANDARD DOSE: 2.0-3.0 Includes: PROPHYLAXIS for venous thrombosis, systemic embolization; TREATMENT for venous thrombosis and/or pulmonary embolus.HIGH RISK: Target INR is2.5-3.5 for patients wiht mechanical heart valves.CBC W/PLT COUNT & AUTO [id number] 15:25:00 Test Item Value Reference Range Comments WHITE BLOOD CELL COUNT (BEAKER) (test eifo=294) 5.8 K/ L 3.5-10.5 RED BLOOD CELL COUNT (BEAKER) (test fttl=028) 3.30 M/ L 3.93-5.22 HEMOGLOBIN (BEAKER) (test pcbs=859) 8.9 GM/DL 11.2-15.7 HEMATOCRIT (BEAKER) (test kffn=549) 28.2 % 34.1-44.9 MEAN CORPUSCULAR VOLUME (BEAKER) (test mnoa=635) 85.5 fL 79.4-94.8 MEAN CORPUSCULAR HEMOGLOBIN (BEAKER) (test 27.0 pg 25.6-32.2 jofa=108) MEAN CORPUSCULAR HEMOGLOBIN CONC (BEAKER) (test 31.6 GM/DL 32.2-35.5 tymq=414) RED CELL DISTRIBUTION WIDTH (BEAKER) (test 16.6 % 11.7-14.4 erxy=447) PLATELET COUNT (BEAKER) (test dsth=470) 185 K/CU MM 150-450 MEAN PLATELET VOLUME (BEAKER) (test ofko=097) 9.0 fL 9.4-12.3 NUCLEATED RED BLOOD CELLS (BEAKER) (test 0 /100 WBC 0-0 rrhr=348) NEUTROPHILS RELATIVE PERCENT (BEAKER) (test 50 % nxqo=656) LYMPHOCYTES RELATIVE PERCENT (BEAKER) (test 32 % yxnp=490) MONOCYTES RELATIVE PERCENT (BEAKER) (test 7 % bjam=881) EOSINOPHILS RELATIVE PERCENT (BEAKER) (test 10 % gmtq=998) BASOPHILS RELATIVE PERCENT (BEAKER) (test 2 % mjta=546) NEUTROPHILS ABSOLUTE COUNT (BEAKER) (test 2.88 K/ L 1.56-6.13 rmkd=302) LYMPHOCYTES ABSOLUTE COUNT (BEAKER) (test 1.86 K/ L 1.18-3.74 kdyi=682) MONOCYTES ABSOLUTE COUNT (BEAKER) (test 0.38 K/ L 0.24-0.36 scae=027) EOSINOPHILS ABSOLUTE COUNT (BEAKER) (test 0.55 K/ L 0.04-0.36 plns=886) BASOPHILS ABSOLUTE COUNT (BEAKER) (test 0.10 K/ L 0.01-0.08 vwcr=984) IMMATURE GRANULOCYTES-RELATIVE PERCENT (BEAKER) 0 % 0-1 (test uyzw=2589) PROTHROMBIN [id number] 17:20:00 Test Item Value Reference Range Comments PROTIME (BEAKER) (test vekd=774) 13.6 seconds 11.9-14.2 INR (BEAKER) (test juxg=064) 1.1 <=5.9 Effective 04/01/2019: PT Reference Range ChangeNew: 11.9-14.2 Previous: 11.7- 14.7RECOMMENDED COUMADIN/WARFARIN INR THERAPY RANGESSTANDARD DOSE: 2.0-3.0 Includes: PROPHYLAXIS for venous thrombosis, systemic embolization; TREATMENT for venous thrombosis and/or pulmonary embolus.HIGH RISK: Target INR is2.5-3.5 for patients wiht mechanical heart valves.HEPATIC FUNCTION [id number] 17:16 :00 Test Item Value Reference Range Comments TOTAL PROTEIN (BEAKER) (test wkft=419) 6.7 gm/dL 6.0-8.3 ALBUMIN (BEAKER) (test hdje=4741) 3.0 g/dL 3.5-5.0 BILIRUBIN TOTAL (BEAKER) (test oazh=919) 1.4 mg/dL 0.2-1.2 BILIRUBIN DIRECT (BEAKER) (test fyqh=138) 0.7 mg/dL 0.1-0.5 ALKALINE PHOSPHATASE (BEAKER) (test kjcc=896) 139 U/L 40-150 AST (SGOT) (BEAKER) (test wyds=598) 32 U/L 5-34 ALT (SGPT) (BEAKER) (test vbex=048) 16 U/L 6-55 BASIC METABOLIC [id number] 17:16:00 Test Item Value Reference Range Comments SODIUM (BEAKER) (test 139 meq/L 136-145 imxq=217) POTASSIUM (BEAKER) (test 3.6 meq/L 3.5-5.1 spdx=350) CHLORIDE (BEAKER) (test 99 meq/L 98-107 awzp=916) CO2 (BEAKER) (test 32 meq/L 22-29 bhlt=545) BLOOD UREA NITROGEN 26 mg/dL 7-21 (BEAKER) (test ytog=412) CREATININE (BEAKER) (test 1.68 mg/dL 0.57-1.25 lvpq=015) GLUCOSE RANDOM (BEAKER) 263 mg/dL 70-105 (test lhyx=967) CALCIUM (BEAKER) (test 9.0 mg/dL 8.4-10.2 ogxa=342) EGFR (BEAKER) (test 31 mL/min/1.73 sq m ESTIMATED GFR IS NOT idni=1716) ACCURATE CREATININE CLEARANCE IN PREDICTING GLOMERULAR FILTRATION RATE. ESTIMATED GFR IS NOT APPLICABLE FOR DIALYSIS PATIENTS. CBC W/PLT COUNT & AUTO [id number] 17:01:00 Test Item Value Reference Range Comments WHITE BLOOD CELL COUNT (BEAKER) (test qsbh=735) 7.4 K/ L 3.5-10.5 RED BLOOD CELL COUNT (BEAKER) (test xaoy=903) 3.44 M/ L 3.93-5.22 HEMOGLOBIN (BEAKER) (test kxxq=171) 9.6 GM/DL 11.2-15.7 HEMATOCRIT (BEAKER) (test lrne=477) 30.1 % 34.1-44.9 MEAN CORPUSCULAR VOLUME (BEAKER) (test uowr=165) 87.5 fL 79.4-94.8 MEAN CORPUSCULAR HEMOGLOBIN (BEAKER) (test 27.9 pg 25.6-32.2 kvse=855) MEAN CORPUSCULAR HEMOGLOBIN CONC (BEAKER) (test 31.9 GM/DL 32.2-35.5 krie=144) RED CELL DISTRIBUTION WIDTH (BEAKER) (test 16.0 % 11.7-14.4 aklm=411) PLATELET COUNT (BEAKER) (test ktjh=137) 190 K/CU MM 150-450 MEAN PLATELET VOLUME (BEAKER) (test nhzi=684) 9.3 fL 9.4-12.3 NUCLEATED RED BLOOD CELLS (BEAKER) (test 0 /100 WBC 0-0 gqjw=510) NEUTROPHILS RELATIVE PERCENT (BEAKER) (test 65 % ojnq=442) LYMPHOCYTES RELATIVE PERCENT (BEAKER) (test 23 % krwi=096) MONOCYTES RELATIVE PERCENT (BEAKER) (test 6 % vtzf=447) EOSINOPHILS RELATIVE PERCENT (BEAKER) (test 5 % ztsl=022) BASOPHILS RELATIVE PERCENT (BEAKER) (test 1 % lsaj=194) NEUTROPHILS ABSOLUTE COUNT (BEAKER) (test 4.83 K/ L 1.56-6.13 kmox=961) LYMPHOCYTES ABSOLUTE COUNT (BEAKER) (test 1.67 K/ L 1.18-3.74 zolt=236) MONOCYTES ABSOLUTE COUNT (BEAKER) (test 0.41 K/ L 0.24-0.36 yeyl=062) EOSINOPHILS ABSOLUTE COUNT (BEAKER) (test 0.40 K/ L 0.04-0.36 zbgd=447) BASOPHILS ABSOLUTE COUNT (BEAKER) (test 0.06 K/ L 0.01-0.08 weay=041) IMMATURE GRANULOCYTES-RELATIVE PERCENT (BEAKER) 0 % 0-1 (test rcgy=4222) POCT-GLUCOSE [id number] 13:48:00 Test Item Value Reference Range Comments POC-GLUCOSE METER (BEAKER) 203 mg/dL 70-110 TESTED AT [address] (test ysgg=9063) [facility] [address] POCT-GLUCOSE [id number] 09:45:00 Test Item Value Reference Range Comments POC-GLUCOSE METER (BEAKER) 168 mg/dL 70-110 TESTED AT [address] (test kehv=3311) [facility] [address] POCT-GLUCOSE [id number] 08:06:00 Test Item Value Reference Range Comments POC-GLUCOSE METER (BEAKER) 177 mg/dL 70-110 TESTED AT [address] (test haom=3259) [facility] [address] COMPREHENSIVE METABOLIC [id number] 06:11:00 Test Item Value Reference Range Comments TOTAL PROTEIN (BEAKER) 5.5 gm/dL 6.0-8.3 (test nhgm=774) ALBUMIN (BEAKER) (test 3.0 g/dL 3.5-5.0 barc=5643) ALKALINE PHOSPHATASE 117 U/L 40-150 (BEAKER) (test cpza=832) BILIRUBIN TOTAL (BEAKER) 1.2 mg/dL 0.2-1.2 (test plvo=789) SODIUM (BEAKER) (test 138 meq/L 136-145 ceul=864) POTASSIUM (BEAKER) (test 4.1 meq/L 3.5-5.1 iluj=176) CHLORIDE (BEAKER) (test 102 meq/L 98-107 eoyb=482) CO2 (BEAKER) (test 29 meq/L 22-29 fhni=808) BLOOD UREA NITROGEN 23 mg/dL 7-21 (BEAKER) (test vazx=237) CREATININE (BEAKER) (test 1.26 mg/dL 0.57-1.25 xqte=573) GLUCOSE RANDOM (BEAKER) 177 mg/dL 70-105 (test zwmk=330) CALCIUM (BEAKER) (test 8.3 mg/dL 8.4-10.2 qlse=480) AST (SGOT) (BEAKER) (test 26 U/L 5-34 kifm=703) ALT (SGPT) (BEAKER) (test 9 U/L 6-55 emdb=019) EGFR (BEAKER) (test 43 mL/min/1.73 sq m ESTIMATED GFR IS NOT pfgg=7111) ACCURATE CREATININE CLEARANCE IN PREDICTING GLOMERULAR FILTRATION RATE. ESTIMATED GFR IS NOT APPLICABLE FOR DIALYSIS PATIENTS. CBC (HEMOGRAM ONLY)2019-06-03 05:17:00 Test Item Value Reference Range Comments WHITE BLOOD CELL COUNT (BEAKER) (test bcwp=293) 6.0 K/ L 3.5-10.5 RED BLOOD CELL COUNT (BEAKER) (test cxgq=743) 2.95 M/ L 3.93-5.22 HEMOGLOBIN (BEAKER) (test ccab=390) 8.1 GM/DL 11.2-15.7 HEMATOCRIT (BEAKER) (test wawi=241) 26.3 % 34.1-44.9 MEAN CORPUSCULAR VOLUME (BEAKER) (test gfei=600) 89.2 fL 79.4-94.8 MEAN CORPUSCULAR HEMOGLOBIN (BEAKER) (test 27.5 pg 25.6-32.2 xses=215) MEAN CORPUSCULAR HEMOGLOBIN CONC (BEAKER) (test 30.8 GM/DL 32.2-35.5 wwbq=648) RED CELL DISTRIBUTION WIDTH (BEAKER) (test 17.3 % 11.7-14.4 gnct=177) PLATELET COUNT (BEAKER) (test bnni=024) 203 K/CU MM 150-450 MEAN PLATELET VOLUME (BEAKER) (test qyvy=689) 9.2 fL 9.4-12.3 NUCLEATED RED BLOOD CELLS (BEAKER) (test 0 /100 WBC 0-0 srsv=039) POCT-GLUCOSE [id number] 23:37:00 Test Item Value Reference Range Comments POC-GLUCOSE METER (BEAKER) 212 mg/dL 70-[address] [facility] [address] [facility] (test vgif=0400) [place] [address] POCT-GLUCOSE [id number] 16:58:00 Test Item Value Reference Range Comments POC-GLUCOSE METER (BEAKER) 313 mg/dL 70-110 TESTED AT [address] (test jsus=3860) [place] [id number] ANG, TIPSS [id number] 14:25:00Reason for exam:->still recurrent paracentesisFINAL REPORT Procedures:1. [...] the patient's medical record by the nurse. Hide Grader: Akil Chung MD. Manufacturing Machine Operator: MD Ishaan (Fellow) Approach: 1. Right lower [...] skin and deep soft tissues. A 5 [place]an one-step catheter wasinserted and removed from the [...] The needle was exchanged for a 4 [place] micropuncture sheath. The micropuncture sheath was exchanged over a 0.035 Bentson wire for a 5 [place]an x 10 cm vascular sheath. The TIPS stent was then cannulated using a 5 [place] C2 catheter and 0.035 angled Glidewire. The [...] 5 mmHg from 9 mmHg. Signed: Akil Chungort Verified Date/Time: 06/02/2019 14:25:34 Reading Location : [facility] P0 Angio Body Reading Room POCT-GLUCOSE [id number] 11:52:00 Test Item Value Reference Range Comments POC-GLUCOSE METER (BEAKER) 159 mg/dL 70-[address] [facility] [address] (test nhlz=9545) [place] [address] [id number] 05:55:00 Test Item Value Reference Range Comments MAGNESIUM (BEAKER) (test gkrk=387) 1.6 mg/dL 1.6-2.6 COMPREHENSIVE METABOLIC [id number] 05:55:00 Test Item Value Reference Range Comments TOTAL PROTEIN (BEAKER) 5.7 gm/dL 6.0-8.3 (test bqot=258) ALBUMIN (BEAKER) (test 3.3 g/dL 3.5-5.0 aoyj=7383) ALKALINE PHOSPHATASE 118 U/L 40-150 (BEAKER) (test qnje=328) BILIRUBIN TOTAL (BEAKER) 1.4 mg/dL 0.2-1.2 (test lazy=422) SODIUM (BEAKER) (test 140 meq/L 136-145 bguw=580) POTASSIUM (BEAKER) (test 3.3 meq/L 3.5-5.1 nkmy=920) CHLORIDE (BEAKER) (test 101 meq/L 98-107 ewaq=030) CO2 (BEAKER) (test 31 meq/L 22-29 nwbq=417) BLOOD UREA NITROGEN 23 mg/dL 7-21 (BEAKER) (test yuvp=928) CREATININE (BEAKER) (test 1.33 mg/dL 0.57-1.25 tdbt=573) GLUCOSE RANDOM (BEAKER) 131 mg/dL 70-105 (test vygp=475) CALCIUM (BEAKER) (test 8.7 mg/dL 8.4-10.2 cfqu=674) AST (SGOT) (BEAKER) (test 27 U/L 5-34 nsji=439) ALT (SGPT) (BEAKER) (test 11 U/L 6-55 qgpe=042) EGFR (BEAKER) (test 41 mL/min/1.73 sq m ESTIMATED GFR IS NOT agef=1089) ACCURATE CREATININE CLEARANCE IN PREDICTING GLOMERULAR FILTRATION RATE. ESTIMATED GFR IS NOT APPLICABLE FOR DIALYSIS PATIENTS. CBC W/PLT COUNT & AUTO [id number] 05:43:00 Test Item Value Reference Range Comments WHITE BLOOD CELL COUNT (BEAKER) (test tzot=322) 6.0 K/ L 3.5-10.5 RED BLOOD CELL COUNT (BEAKER) (test hzqz=051) 2.97 M/ L 3.93-5.22 HEMOGLOBIN (BEAKER) (test dlcj=812) 8.2 GM/DL 11.2-15.7 HEMATOCRIT (BEAKER) (test pcri=901) 26.0 % 34.1-44.9 MEAN CORPUSCULAR VOLUME (BEAKER) (test vzht=856) 87.5 fL 79.4-94.8 MEAN CORPUSCULAR HEMOGLOBIN (BEAKER) (test 27.6 pg 25.6-32.2 npiw=757) MEAN CORPUSCULAR HEMOGLOBIN CONC (BEAKER) (test 31.5 GM/DL 32.2-35.5 mphq=242) RED CELL DISTRIBUTION WIDTH (BEAKER) (test 17.7 % 11.7-14.4 qowu=493) PLATELET COUNT (BEAKER) (test osqi=368) 194 K/CU MM 150-450 MEAN PLATELET VOLUME (BEAKER) (test ncte=296) 9.3 fL 9.4-12.3 NUCLEATED RED BLOOD CELLS (BEAKER) (test 0 /100 WBC 0-0 tmcy=593) NEUTROPHILS RELATIVE PERCENT (BEAKER) (test 48 % rbep=753) LYMPHOCYTES RELATIVE PERCENT (BEAKER) (test 31 % basi=438) MONOCYTES RELATIVE PERCENT (BEAKER) (test 10 % mqms=013) EOSINOPHILS RELATIVE PERCENT (BEAKER) (test 9 % fxbz=670) BASOPHILS RELATIVE PERCENT (BEAKER) (test 1 % yuqi=486) NEUTROPHILS ABSOLUTE COUNT (BEAKER) (test 2.84 K/ L 1.56-6.13 nlox=649) LYMPHOCYTES ABSOLUTE COUNT (BEAKER) (test 1.87 K/ L 1.18-3.74 nvck=144) MONOCYTES ABSOLUTE COUNT (BEAKER) (test 0.60 K/ L 0.24-0.36 jygp=304) EOSINOPHILS ABSOLUTE COUNT (BEAKER) (test 0.56 K/ L 0.04-0.36 mqvt=552) BASOPHILS ABSOLUTE COUNT (BEAKER) (test 0.08 K/ L 0.01-0.08 hfqg=677) IMMATURE GRANULOCYTES-RELATIVE PERCENT (BEAKER) 0 % 0-1 (test kukg=4070) [id number] 05:42:00 Test Item Value Reference Range Comments PHOSPHORUS (BEAKER) (test zpnz=825) 2.3 mg/dL 2.3-4.7 POCT-GLUCOSE [id number] 22:34:00 Test Item Value Reference Range Comments POC-GLUCOSE METER (BEAKER) 192 mg/dL 70-110 TESTED AT [address] (test tpav=3179) [employer] [facility] [address] POCT-GLUCOSE [id number] 17:01:00 Test Item Value Reference Range Comments POC-GLUCOSE METER (BEAKER) 250 mg/dL 70-110 TESTED AT [address] (test jlho=8715) [facility] [address] [id number] 07:42:00 Test Item Value Reference Range Comments MAGNESIUM (BEAKER) (test 1.6 mg/dL 1.6-2.6 Specimen slightly hemolyzed fimd=156) [id number] 07:42:00 Test Item Value Reference Range Comments PHOSPHORUS (BEAKER) (test 2.8 mg/dL 2.3-4.7 Specimen slightly hemolyzed geui=848) COMPREHENSIVE METABOLIC [id number] 07:42:00 Test Item Value Reference Range Comments TOTAL PROTEIN (BEAKER) 5.5 gm/dL 6.0-8.3 Specimen slightly (test jcjx=016) hemolyzed ALBUMIN (BEAKER) (test 2.9 g/dL 3.5-5.0 Specimen slightly kkep=3266) hemolyzed ALKALINE PHOSPHATASE 125 U/L 40-150 (BEAKER) (test ozgc=931) BILIRUBIN TOTAL (BEAKER) 1.1 mg/dL 0.2-1.2 Specimen slightly (test pbfk=211) hemolyzed SODIUM (BEAKER) (test 141 meq/L 136-145 byjo=292) POTASSIUM (BEAKER) (test 3.6 meq/L 3.5-5.1 Specimen slightly ejhl=919) hemolyzed CHLORIDE (BEAKER) (test 101 meq/L 98-107 kdpk=279) CO2 (BEAKER) (test 31 meq/L 22-29 aojk=869) BLOOD UREA NITROGEN 23 mg/dL 7-21 (BEAKER) (test bkiz=568) CREATININE (BEAKER) (test 1.50 mg/dL 0.57-1.25 Specimen slightly upvq=826) hemolyzed GLUCOSE RANDOM (BEAKER) 153 mg/dL 70-105 (test wcyp=111) CALCIUM (BEAKER) (test 8.7 mg/dL 8.4-10.2 xjsv=585) AST (SGOT) (BEAKER) (test 35 U/L 5-34 Specimen slightly ovkh=348) hemolyzed ALT (SGPT) (BEAKER) (test 12 U/L 6-55 Specimen slightly jegd=060) hemolyzed EGFR (BEAKER) (test 35 mL/min/1.73 sq m ESTIMATED GFR IS NOT xorl=0770) ACCURATE CREATININE CLEARANCE IN PREDICTING GLOMERULAR FILTRATION RATE. ESTIMATED GFR IS NOT APPLICABLE FOR DIALYSIS PATIENTS. POCT-GLUCOSE [id number] 07:38:00 Test Item Value Reference Range Comments POC-GLUCOSE METER (BEAKER) 154 mg/dL 70-110 TESTED AT [address] (test wruy=7126) [facility] [address] CBC W/PLT COUNT & AUTO [id number] 06:24:00 Test Item Value Reference Range Comments WHITE BLOOD CELL COUNT (BEAKER) (test aieb=925) 6.0 K/ L 3.5-10.5 RED BLOOD CELL COUNT (BEAKER) (test xuos=892) 3.09 M/ L 3.93-5.22 HEMOGLOBIN (BEAKER) (test jnpd=444) 8.5 GM/DL 11.2-15.7 HEMATOCRIT (BEAKER) (test ohmv=259) 27.0 % 34.1-44.9 MEAN CORPUSCULAR VOLUME (BEAKER) (test wxzz=605) 87.4 fL 79.4-94.8 MEAN CORPUSCULAR HEMOGLOBIN (BEAKER) (test 27.5 pg 25.6-32.2 schm=943) MEAN CORPUSCULAR HEMOGLOBIN CONC (BEAKER) (test 31.5 GM/DL 32.2-35.5 gnhu=858) RED CELL DISTRIBUTION WIDTH (BEAKER) (test 17.7 % 11.7-14.4 pyqq=300) PLATELET COUNT (BEAKER) (test ekfp=648) 196 K/CU MM 150-450 MEAN PLATELET VOLUME (BEAKER) (test kkbb=835) 8.9 fL 9.4-12.3 NUCLEATED RED BLOOD CELLS (BEAKER) (test 0 /100 WBC 0-0 rxng=682) NEUTROPHILS RELATIVE PERCENT (BEAKER) (test 44 % snfl=851) LYMPHOCYTES RELATIVE PERCENT (BEAKER) (test 34 % xvby=395) MONOCYTES RELATIVE PERCENT (BEAKER) (test 11 % ytfc=807) EOSINOPHILS RELATIVE PERCENT (BEAKER) (test 9 % mcjl=889) BASOPHILS RELATIVE PERCENT (BEAKER) (test 2 % nbum=931) NEUTROPHILS ABSOLUTE COUNT (BEAKER) (test 2.64 K/ L 1.56-6.13 eboo=858) LYMPHOCYTES ABSOLUTE COUNT (BEAKER) (test 2.03 K/ L 1.18-3.74 dwve=824) MONOCYTES ABSOLUTE COUNT (BEAKER) (test 0.64 K/ L 0.24-0.36 mfcb=806) EOSINOPHILS ABSOLUTE COUNT (BEAKER) (test 0.54 K/ L 0.04-0.36 npwe=243) BASOPHILS ABSOLUTE COUNT (BEAKER) (test 0.09 K/ L 0.01-0.08 gfik=000) IMMATURE GRANULOCYTES-RELATIVE PERCENT (BEAKER) 0 % 0-1 (test mmwg=6248) CALCIUM, [id number] 05:35:00 Test Item Value Reference Range Comments CALCIUM IONIZED (BEAKER) (test lmdv=996) 0.99 mmol/L 1.12-1.27 PH, BLOOD (BEAKER) (test kucm=2202) 7.50 POCT-GLUCOSE [id number] 22:12:00 Test Item Value Reference Range Comments POC-GLUCOSE METER (BEAKER) 246 mg/dL 70-110 TESTED AT [address] (test lgjh=1048) [facility] [address] POCT-GLUCOSE [id number] 17:11:00 Test Item Value Reference Range Comments POC-GLUCOSE METER (BEAKER) 201 mg/dL 70-110 TESTED AT [address] (test yfsd=8631) [facility] [address] POCT-GLUCOSE [id number] 13:24:00 Test Item Value Reference Range Comments POC-GLUCOSE METER (BEAKER) 173 mg/dL 70-110 TESTED AT [address] (test anqi=5742) [facility] [address] COMPREHENSIVE METABOLIC [id number] 09:06:00 Test Item Value Reference Range Comments TOTAL PROTEIN (BEAKER) 5.8 gm/dL 6.0-8.3 (test nvwt=138) ALBUMIN (BEAKER) (test 3.2 g/dL 3.5-5.0 hnbq=6339) ALKALINE PHOSPHATASE 125 U/L 40-150 (BEAKER) (test bhas=393) BILIRUBIN TOTAL (BEAKER) 1.6 mg/dL 0.2-1.2 (test feuu=821) SODIUM (BEAKER) (test 140 meq/L 136-145 nmun=612) POTASSIUM (BEAKER) (test 3.4 meq/L 3.5-5.1 hxhf=633) CHLORIDE (BEAKER) (test 100 meq/L 98-107 dcga=150) CO2 (BEAKER) (test 31 meq/L 22-29 bsbp=787) BLOOD UREA NITROGEN 21 mg/dL 7-21 (BEAKER) (test jyov=171) CREATININE (BEAKER) (test 1.57 mg/dL 0.57-1.25 veml=150) GLUCOSE RANDOM (BEAKER) 138 mg/dL 70-105 (test houk=157) CALCIUM (BEAKER) (test 8.9 mg/dL 8.4-10.2 plpp=072) AST (SGOT) (BEAKER) (test 33 U/L 5-34 isuk=115) ALT (SGPT) (BEAKER) (test 13 U/L 6-55 qzof=518) EGFR (BEAKER) (test 33 mL/min/1.73 sq m ESTIMATED GFR IS NOT wqaq=9777) ACCURATE CREATININE CLEARANCE IN PREDICTING GLOMERULAR FILTRATION RATE. ESTIMATED GFR IS NOT APPLICABLE FOR DIALYSIS PATIENTS. Specimen slightly ictericPOCT-GLUCOSE [id number] 07:53:00 Test Item Value Reference Range Comments POC-GLUCOSE METER (BEAKER) 157 mg/dL 70-[address] [facility] [address] [facility] (test ufhi=1160) [facility] [address] CBC (HEMOGRAM ONLY)2019-05-31 06:33:00 Test Item Value Reference Range Comments WHITE BLOOD CELL COUNT (BEAKER) (test zzni=482) 5.7 K/ L 3.5-10.5 RED BLOOD CELL COUNT (BEAKER) (test utfs=638) 3.25 M/ L 3.93-5.22 HEMOGLOBIN (BEAKER) (test gier=901) 8.9 GM/DL 11.2-15.7 HEMATOCRIT (BEAKER) (test nrro=431) 28.3 % 34.1-44.9 MEAN CORPUSCULAR VOLUME (BEAKER) (test cfus=964) 87.1 fL 79.4-94.8 MEAN CORPUSCULAR HEMOGLOBIN (BEAKER) (test 27.4 pg 25.6-32.2 zdrh=215) MEAN CORPUSCULAR HEMOGLOBIN CONC (BEAKER) (test 31.4 GM/DL 32.2-35.5 uzhk=155) RED CELL DISTRIBUTION WIDTH (BEAKER) (test 17.5 % 11.7-14.4 wwvb=937) PLATELET COUNT (BEAKER) (test nsie=503) 188 K/CU MM 150-450 MEAN PLATELET VOLUME (BEAKER) (test fqmn=853) 9.1 fL 9.4-12.3 NUCLEATED RED BLOOD CELLS (BEAKER) (test 0 /100 WBC 0-0 rhel=594) POCT-GLUCOSE [id number] 22:28:00 Test Item Value Reference Range Comments POC-GLUCOSE METER (BEAKER) 193 mg/dL 70-110 TESTED AT [address] (test tsgx=8680) [place] [address] POCT-GLUCOSE [id number] 17:19:00 Test Item Value Reference Range Comments POC-GLUCOSE METER (BEAKER) 155 mg/dL 70-110 TESTED AT [address] (test sqdt=6847) [place] [address] POCT-GLUCOSE [id number] 12:44:00 Test Item Value Reference Range Comments POC-GLUCOSE METER (BEAKER) 189 mg/dL 70-110 TESTED AT [address] (test kwgy=6728) [place] [address] POCT-GLUCOSE [id number] 08:30:00 Test Item Value Reference Range Comments POC-GLUCOSE METER (BEAKER) 140 mg/dL 70-110 TESTED AT [address] (test nwjf=3185) [place] [address] [id number] 05:15:00 Test Item Value Reference Range Comments THYROID STIMULATING HORMONE (BEAKER) (test 6.32 uIU/mL 0.35-4.94 vwao=586) T4, [id number] 05:11:00 Test Item Value Reference Range Comments FREE T4 (BEAKER) (test jdte=554) 1.70 ng/dL 0.70-1.48 [id number] 04:53:00 Test Item Value Reference Range Comments PHOSPHORUS (BEAKER) (test lxum=141) 2.4 mg/dL 2.3-4.7 [id number] 04:53:00 Test Item Value Reference Range Comments MAGNESIUM (BEAKER) (test odik=561) 1.8 mg/dL 1.6-2.6 COMPREHENSIVE METABOLIC [id number] 04:53:00 Test Item Value Reference Range Comments TOTAL PROTEIN (BEAKER) 5.1 gm/dL 6.0-8.3 (test mdpf=862) ALBUMIN (BEAKER) (test 2.9 g/dL 3.5-5.0 ajig=9392) ALKALINE PHOSPHATASE 101 U/L 40-150 (BEAKER) (test auvo=504) BILIRUBIN TOTAL (BEAKER) 1.6 mg/dL 0.2-1.2 (test qtsg=211) SODIUM (BEAKER) (test 137 meq/L 136-145 nndy=883) POTASSIUM (BEAKER) (test 3.7 meq/L 3.5-5.1 uumc=469) CHLORIDE (BEAKER) (test 99 meq/L 98-107 qjhe=331) CO2 (BEAKER) (test 32 meq/L 22-29 nwlz=700) BLOOD UREA NITROGEN 20 mg/dL 7-21 (BEAKER) (test wwpv=714) CREATININE (BEAKER) (test 1.55 mg/dL 0.57-1.25 hixi=004) GLUCOSE RANDOM (BEAKER) 157 mg/dL 70-105 (test rzqw=667) CALCIUM (BEAKER) (test 8.3 mg/dL 8.4-10.2 bekn=062) AST (SGOT) (BEAKER) (test 33 U/L 5-34 dztn=187) ALT (SGPT) (BEAKER) (test 12 U/L 6-55 yvdy=834) EGFR (BEAKER) (test 34 mL/min/1.73 sq m ESTIMATED GFR IS NOT hheq=4932) ACCURATE CREATININE CLEARANCE IN PREDICTING GLOMERULAR FILTRATION RATE. ESTIMATED GFR IS NOT APPLICABLE FOR DIALYSIS PATIENTS. CBC (HEMOGRAM ONLY)2019-05-30 04:13:00 Test Item Value Reference Range Comments WHITE BLOOD CELL COUNT (BEAKER) (test gobp=004) 5.3 K/ L 3.5-10.5 RED BLOOD CELL COUNT (BEAKER) (test kdpo=975) 2.75 M/ L 3.93-5.22 HEMOGLOBIN (BEAKER) (test tilu=507) 7.6 GM/DL 11.2-15.7 HEMATOCRIT (BEAKER) (test addz=305) 24.2 % 34.1-44.9 MEAN CORPUSCULAR VOLUME (BEAKER) (test wjgf=690) 88.0 fL 79.4-94.8 MEAN CORPUSCULAR HEMOGLOBIN (BEAKER) (test 27.6 pg 25.6-32.2 gzfm=413) MEAN CORPUSCULAR HEMOGLOBIN CONC (BEAKER) (test 31.4 GM/DL 32.2-35.5 rcho=545) RED CELL DISTRIBUTION WIDTH (BEAKER) (test 17.4 % 11.7-14.4 rlex=157) PLATELET COUNT (BEAKER) (test ckuv=852) 162 K/CU MM 150-450 MEAN PLATELET VOLUME (BEAKER) (test yede=135) 9.2 fL 9.4-12.3 NUCLEATED RED BLOOD CELLS (BEAKER) (test 0 /100 WBC 0-0 bocb=231) CALCIUM, [id number] 04:13:00 Test Item Value Reference Range Comments CALCIUM IONIZED (BEAKER) (test iswf=082) 0.98 mmol/L 1.12-1.27 PH, BLOOD (BEAKER) (test dpzl=5720) 7.58 RAD, CHEST, 2 [id number] 23:47:00Reason for exam:->opacitiesFINAL REPORT Portable chest. HISTORY: [...] hemidiaphragm. This is similar to previous. Signed: Haris Arrington MDReport Verified Date/Time: 05/29/2019 23:47:08 Reading Location: [facility] C013W Consult Reading Room POCT-GLUCOSE [id number] 23:12:00 Test Item Value Reference Range Comments POC-GLUCOSE METER (BEAKER) 192 mg/dL 70-110 TESTED AT [address] (test jfwh=4221) [facility] [address] URINALYSIS W/ [id number] 18:14:00 Test Item Value Reference Range Comments COLOR (BEAKER) (test xufq=526) Yellow CLARITY (BEAKER) (test pank=288) Clear SPECIFIC GRAVITY UA (BEAKER) (test 1.011 1.001-1.035 mtnn=515) PH UA (BEAKER) (test epor=307) 8.5 5.0-8.0 PROTEIN UA (BEAKER) (test ohsm=544) 20 mg/dL Negative GLUCOSE UA (BEAKER) (test ncja=320) Negative Negative KETONES UA (BEAKER) (test pncp=068) Negative Negative BILIRUBIN UA (BEAKER) (test kqtk=159) Negative Negative BLOOD UA (BEAKER) (test byon=039) Negative Negative NITRITE UA (BEAKER) (test qamz=227) Negative Negative LEUKOCYTE ESTERASE UA (BEAKER) (test Negative Negative dldg=926) UROBILINOGEN UA (BEAKER) (test uufe=680) 12.0 mg/dL 0.2-1.0 RBC UA (BEAKER) (test oxvo=299) < /HPF WBC UA (BEAKER) (test ilmk=522) 1 /HPF BACTERIA (BEAKER) (test ywni=951) Rare SQUAMOUS EPITHELIAL (BEAKER) (test 3 /HPF bfxu=933) SOURCE(BEAKER) (test zckr=0274) Urine, Clean Catch POCT-GLUCOSE [id number] 16:55:00 Test Item Value Reference Range Comments POC-GLUCOSE METER (BEAKER) 186 mg/dL 70-110 TESTED AT [address] (test stbe=0873) [facility] [address] TISSUE [id number] 15:15:00Surgical Pathology Report Case: [id number] Authorizing Provider: Shannen Giron MD Collected: 05/28/2019 1448 Ordering Location: [address] Received: 05/29/2019 0915 Service Pathologist: Padilla Reed MD Specimen: Polyp, Colon - Right/Ascending, taken by erinned hardy PART A RIGHT ASCENDING COLON POLYP, POLYPECTOMY:TUBULAR ADENOMA. Signing Pathologist Direct Phone Line: [phone] signed by Padilla Reed MD on 05/29/2019 at 3:15 [id number] colonoscopyRight ascending colonReceived in formalin, labelled with the patients name, date of , and medical record number and labelled "right ascending colon polyp" are three portions of silva tissue measuring 0.5 x 0.4 x 0.3 cm in aggregate. Submitted in toto in one cassette. Performed.BODY FLUID CULTURE + GRAM [id number] 12:56:00 Test Item Value Reference Range Comments CULTURE (BEAKER) (test gkft=5045) No growth GRAM STAIN RESULT (BEAKER) (test No WBCs tnqf=7503) GRAM STAIN RESULT (BEAKER) (test No organisms seen jlff=30287) POCT-GLUCOSE [id number] 12:37:00 Test Item Value Reference Range Comments POC-GLUCOSE METER (BEAKER) 154 mg/dL 70-110 TESTED AT [address] (test xpyh=3367) [facility] [address] POCT-GLUCOSE [id number] 09:12:00 Test Item Value Reference Range Comments POC-GLUCOSE METER (BEAKER) 76 mg/dL 70-110 TESTED AT [address] (test turm=2515) [place] [id number] COMPREHENSIVE METABOLIC [id number] 08:19:00 Test Item Value Reference Range Comments TOTAL PROTEIN (BEAKER) 4.9 gm/dL 6.0-8.3 (test bmdx=386) ALBUMIN (BEAKER) (test 3.0 g/dL 3.5-5.0 faki=9624) ALKALINE PHOSPHATASE 88 U/L 40-150 (BEAKER) (test xrod=227) BILIRUBIN TOTAL (BEAKER) 1.9 mg/dL 0.2-1.2 (test eark=085) SODIUM (BEAKER) (test 141 meq/L 136-145 jgax=675) POTASSIUM (BEAKER) (test 3.5 meq/L 3.5-5.1 imrw=911) CHLORIDE (BEAKER) (test 100 meq/L 98-107 ibih=606) CO2 (BEAKER) (test 34 meq/L 22-29 lewl=086) BLOOD UREA NITROGEN 18 mg/dL 7-21 (BEAKER) (test rhwx=554) CREATININE (BEAKER) (test 1.50 mg/dL 0.57-1.25 yxex=882) GLUCOSE RANDOM (BEAKER) 92 mg/dL 70-105 (test jgfg=834) CALCIUM (BEAKER) (test 8.5 mg/dL 8.4-10.2 kzby=156) AST (SGOT) (BEAKER) (test 27 U/L 5-34 xpsb=801) ALT (SGPT) (BEAKER) (test 10 U/L 6-55 jbbv=446) EGFR (BEAKER) (test 35 mL/min/1.73 sq m ESTIMATED GFR IS NOT eqdp=7915) ACCURATE CREATININE CLEARANCE IN PREDICTING GLOMERULAR FILTRATION RATE. ESTIMATED GFR IS NOT APPLICABLE FOR DIALYSIS PATIENTS. Specimen slightly [id number] 08:18:00 Test Item Value Reference Range Comments PHOSPHORUS (BEAKER) (test psqr=329) 2.8 mg/dL 2.3-4.7 [id number] 08:18:00 Test Item Value Reference Range Comments MAGNESIUM (BEAKER) (test xwzp=715) 2.0 mg/dL 1.6-2.6 CBC W/PLT COUNT & AUTO [id number] 05:59:00 Test Item Value Reference Range Comments WHITE BLOOD CELL COUNT (BEAKER) (test ahwo=616) 5.3 K/ L 3.5-10.5 RED BLOOD CELL COUNT (BEAKER) (test ubur=983) 2.79 M/ L 3.93-5.22 HEMOGLOBIN (BEAKER) (test bsey=291) 7.7 GM/DL 11.2-15.7 HEMATOCRIT (BEAKER) (test vgvf=578) 24.8 % 34.1-44.9 MEAN CORPUSCULAR VOLUME (BEAKER) (test bqma=899) 88.9 fL 79.4-94.8 MEAN CORPUSCULAR HEMOGLOBIN (BEAKER) (test 27.6 pg 25.6-32.2 wytz=115) MEAN CORPUSCULAR HEMOGLOBIN CONC (BEAKER) (test 31.0 GM/DL 32.2-35.5 ldfd=514) RED CELL DISTRIBUTION WIDTH (BEAKER) (test 17.6 % 11.7-14.4 lvdq=916) PLATELET COUNT (BEAKER) (test ssja=385) 146 K/CU MM 150-450 MEAN PLATELET VOLUME (BEAKER) (test bchp=902) 9.6 fL 9.4-12.3 NUCLEATED RED BLOOD CELLS (BEAKER) (test 0 /100 WBC 0-0 bqfa=935) NEUTROPHILS RELATIVE PERCENT (BEAKER) (test 46 % cwmm=086) LYMPHOCYTES RELATIVE PERCENT (BEAKER) (test 31 % cfvb=647) MONOCYTES RELATIVE PERCENT (BEAKER) (test 11 % tjrl=957) EOSINOPHILS RELATIVE PERCENT (BEAKER) (test 10 % smeb=572) BASOPHILS RELATIVE PERCENT (BEAKER) (test 2 % cgcx=082) NEUTROPHILS ABSOLUTE COUNT (BEAKER) (test 2.46 K/ L 1.56-6.13 frat=263) LYMPHOCYTES ABSOLUTE COUNT (BEAKER) (test 1.66 K/ L 1.18-3.74 qynt=028) MONOCYTES ABSOLUTE COUNT (BEAKER) (test 0.57 K/ L 0.24-0.36 xgaj=125) EOSINOPHILS ABSOLUTE COUNT (BEAKER) (test 0.52 K/ L 0.04-0.36 wajn=109) BASOPHILS ABSOLUTE COUNT (BEAKER) (test 0.08 K/ L 0.01-0.08 vhoi=253) IMMATURE GRANULOCYTES-RELATIVE PERCENT (BEAKER) 0 % 0-1 (test pxlk=1592) CALCIUM, [id number] 05:04:00 Test Item Value Reference Range Comments CALCIUM IONIZED (BEAKER) (test lsvq=921) 1.02 mmol/L 1.12-1.27 PH, BLOOD (BEAKER) (test eejq=4484) 7.50 POCT-GLUCOSE [id number] 21:27:00 Test Item Value Reference Range Comments POC-GLUCOSE METER (BEAKER) 139 mg/dL 70-110 TESTED AT [address] (test acla=0812) [facility] [address] BASIC METABOLIC [id number] 18:28:00 Test Item Value Reference Range Comments SODIUM (BEAKER) (test 142 meq/L 136-145 rauf=591) POTASSIUM (BEAKER) (test 3.5 meq/L 3.5-5.1 jchi=470) CHLORIDE (BEAKER) (test 99 meq/L 98-107 cgzy=036) CO2 (BEAKER) (test 37 meq/L 22-29 vphy=792) BLOOD UREA NITROGEN 17 mg/dL 7-21 (BEAKER) (test jens=617) CREATININE (BEAKER) (test 1.38 mg/dL 0.57-1.25 gnjp=931) GLUCOSE RANDOM (BEAKER) 78 mg/dL 70-105 (test febr=443) CALCIUM (BEAKER) (test 8.5 mg/dL 8.4-10.2 bexr=705) EGFR (BEAKER) (test 39 mL/min/1.73 sq m ESTIMATED GFR IS NOT kvvm=7170) ACCURATE CREATININE CLEARANCE IN PREDICTING GLOMERULAR FILTRATION RATE. ESTIMATED GFR IS NOT APPLICABLE FOR DIALYSIS PATIENTS. Call [id number] with resultsSpecimen slightly ictericPOCT-GLUCOSE [id number] 18:10:00 Test Item Value Reference Range Comments POC-GLUCOSE METER (BEAKER) 82 mg/dL 70-110 TESTED AT [address] (test qjyq=4653) [place] [id number] CBC W/PLT COUNT & AUTO [id number] 11:56:00 Test Item Value Reference Range Comments WHITE BLOOD CELL COUNT (BEAKER) (test tfjr=738) 5.0 K/ L 3.5-10.5 RED BLOOD CELL COUNT (BEAKER) (test pkpq=347) 2.82 M/ L 3.93-5.22 HEMOGLOBIN (BEAKER) (test augs=549) 7.9 GM/DL 11.2-15.7 HEMATOCRIT (BEAKER) (test ottf=572) 25.0 % 34.1-44.9 MEAN CORPUSCULAR VOLUME (BEAKER) (test vglk=973) 88.7 fL 79.4-94.8 MEAN CORPUSCULAR HEMOGLOBIN (BEAKER) (test 28.0 pg 25.6-32.2 rthj=457) MEAN CORPUSCULAR HEMOGLOBIN CONC (BEAKER) (test 31.6 GM/DL 32.2-35.5 vyha=013) RED CELL DISTRIBUTION WIDTH (BEAKER) (test 17.6 % 11.7-14.4 pqsq=453) PLATELET COUNT (BEAKER) (test uvfq=995) 155 K/CU MM 150-450 MEAN PLATELET VOLUME (BEAKER) (test aukd=066) 9.5 fL 9.4-12.3 NUCLEATED RED BLOOD CELLS (BEAKER) (test 0 /100 WBC 0-0 clry=787) (CELLAVISION MANUAL DIFF)2019-05-28 11:56:00 Test Item Value Reference Range Comments NEUTROPHILS - REL (CELLAVISION)(BEAKER) (test 69 % yqea=3340) LYMPHOCYTES - REL (CELLAVISION)(BEAKER) (test 21 % smlu=1229) MONOCYTES - REL (CELLAVISION)(BEAKER) (test 3 % sotd=6817) EOSINOPHILS - REL (CELLAVISION)(BEAKER) (test 5 % ubkk=4519) BASOPHILS - REL (CELLAVISION)(BEAKER) (test 1 % lmtc=8247) MYELOCYTES - REL (CELLAVISION)(BEAKER) (test 1 % 0-0 hvbz=8083) NEUTROPHILS - ABS (CELLAVISION)(BEAKER) (test 3.45 K/ul 1.56-6.13 drvn=0772) LYMPHOCYTES - ABS (CELLAVISION)(BEAKER) (test 1.05 K/ul 1.18-3.74 jxmt=4010) MONOCYTES - ABS (CELLAVISION)(BEAKER) (test 0.15 K/uL 0.24-0.36 zuva=5756) EOSINOPHILS - ABS (CELLAVISION)(BEAKER) (test 0.25 K/uL 0.04-0.36 izer=3219) BASOPHILS - ABS (CELLAVISION)(BEAKER) (test 0.05 K/uL 0.01-0.08 suxx=7733) MYELOCYTES-ABS (CELLAVISION)(BEAKER) (test 0.05 K/uL 0.00-0.00 oqdn=4669) TOTAL COUNTED (BEAKER) (test xkoc=6637) 100 PLT MORPHOLOGY (BEAKER) (test sgby=257) Normal SMUDGE CELLS (BEAKER) (test crnk=5296) Present POLYCHROMATOPHILLIC RBCS(BEAKER) (test lbde=967) 1+ few ANISOCYTOSIS (BEAKER) (test jusv=695) 2+ moderate MICROCYTES (BEAKER) (test vuii=480) 2+ moderate POIKILOCYTES (BEAKER) (test nrdn=513) 1+ few SPHEROCYTES (BEAKER) (test fyhy=206) 1+ few PLATELET CONCENTRATION (CELLAVISION)(BEAKER) Adequate (test jznv=3951) Received comment: User comments: Slide comments:POCT-GLUCOSE [id number] 10: 05:00 Test Item Value Reference Range Comments POC-GLUCOSE METER (BEAKER) 82 mg/dL 70-[address] [facility] [address] [place] [address] (test ltfk=2034) [facility] [address] POCT-GLUCOSE [id number] 09:07:00 Test Item Value Reference Range Comments POC-GLUCOSE METER (BEAKER) 84 mg/dL 70-110 TESTED AT [place] [id number] [facility] (test rcvu=5529) [facility] [address] [id number] 06:31:00 Test Item Value Reference Range Comments PHOSPHORUS (BEAKER) (test aclk=250) 2.5 mg/dL 2.3-4.7 [id number] 06:31:00 Test Item Value Reference Range Comments MAGNESIUM (BEAKER) (test lmzx=865) 1.7 mg/dL 1.6-2.6 COMPREHENSIVE METABOLIC [id number] 06:31:00 Test Item Value Reference Range Comments TOTAL PROTEIN (BEAKER) 4.9 gm/dL 6.0-8.3 (test vjbk=695) ALBUMIN (BEAKER) (test 3.1 g/dL 3.5-5.0 cmgj=0381) ALKALINE PHOSPHATASE 82 U/L 40-150 (BEAKER) (test fdor=156) BILIRUBIN TOTAL (BEAKER) 2.3 mg/dL 0.2-1.2 (test zvec=930) SODIUM (BEAKER) (test 143 meq/L 136-145 tbsa=833) POTASSIUM (BEAKER) (test 3.5 meq/L 3.5-5.1 vitk=264) CHLORIDE (BEAKER) (test 100 meq/L 98-107 zxtv=666) CO2 (BEAKER) (test 37 meq/L 22-29 cibh=375) BLOOD UREA NITROGEN 16 mg/dL 7-21 (BEAKER) (test flmv=622) CREATININE (BEAKER) (test 1.37 mg/dL 0.57-1.25 tpiv=308) GLUCOSE RANDOM (BEAKER) 96 mg/dL 70-105 (test wdnm=201) CALCIUM (BEAKER) (test 8.6 mg/dL 8.4-10.2 xuea=499) AST (SGOT) (BEAKER) (test 30 U/L 5-34 aelp=438) ALT (SGPT) (BEAKER) (test 10 U/L 6-55 jhld=964) EGFR (BEAKER) (test 39 mL/min/1.73 sq m ESTIMATED GFR IS NOT ogdf=4568) ACCURATE CREATININE CLEARANCE IN PREDICTING GLOMERULAR FILTRATION RATE. ESTIMATED GFR IS NOT APPLICABLE FOR DIALYSIS PATIENTS. Specimen slightly ictericB-TYPE NATRIURETIC FACTOR (BNP)2019-05-28 06:19:00 Test Item Value Reference Range Comments B-TYPE NATRIURETIC PEPTIDE (BEAKER) (test 381 pg/mL 0-100 lskn=830) CALCIUM, [id number] 05:25:00 Test Item Value Reference Range Comments CALCIUM IONIZED (BEAKER) (test uibw=990) 1.03 mmol/L 1.12-1.27 PH, BLOOD (BEAKER) (test whcp=9143) 7.49 POCT-GLUCOSE [id number] 22:42:00 Test Item Value Reference Range Comments POC-GLUCOSE METER (BEAKER) 174 mg/dL 70-[address] [facility] [address] [facility] (test xzyj=6465) [facility] [address] [id number] 17:57:00 Test Item Value Reference Range Comments SODIUM (BEAKER) (test dssn=031) 140 meq/L 136-145 POTASSIUM (BEAKER) (test 3.9 meq/L 3.5-5.1 Specimen slightly hemolyzed yufj=109) CHLORIDE (BEAKER) (test 99 meq/L 98-107 tpta=520) CO2 (BEAKER) (test iclt=287) 35 meq/L 22-29 Call [id number] 17:50:00 Test Item Value Reference Range Comments POC-GLUCOSE METER (BEAKER) 151 mg/dL 70-110 TESTED AT [address] (test kfdy=9514) [facility] [address] POCT-GLUCOSE [id number] 12:36:00 Test Item Value Reference Range Comments POC-GLUCOSE METER (BEAKER) 123 mg/dL 70-110 TESTED AT [address] (test fzme=9378) [facility] [address] POCT-GLUCOSE [id number] 08:15:00 Test Item Value Reference Range Comments POC-GLUCOSE METER (BEAKER) 121 mg/dL 70-110 TESTED AT [address] (test kzph=8719) [facility] [address] [id number] 07:00:00 Test Item Value Reference Range Comments PHOSPHORUS (BEAKER) (test upuf=948) 1.9 mg/dL 2.3-4.7 [id number] 07:00:00 Test Item Value Reference Range Comments MAGNESIUM (BEAKER) (test ejeo=475) 1.6 mg/dL 1.6-2.6 COMPREHENSIVE METABOLIC [id number] 07:00:00 Test Item Value Reference Range Comments TOTAL PROTEIN (BEAKER) 4.9 gm/dL 6.0-8.3 (test ecaj=778) ALBUMIN (BEAKER) (test 3.1 g/dL 3.5-5.0 bgzx=1947) ALKALINE PHOSPHATASE 75 U/L 40-150 (BEAKER) (test gtcw=876) BILIRUBIN TOTAL (BEAKER) 1.9 mg/dL 0.2-1.2 (test rquc=604) SODIUM (BEAKER) (test 139 meq/L 136-145 crfv=770) POTASSIUM (BEAKER) (test 4.3 meq/L 3.5-5.1 yeve=028) CHLORIDE (BEAKER) (test 99 meq/L 98-107 myej=048) CO2 (BEAKER) (test 37 meq/L 22-29 vfqz=079) BLOOD UREA NITROGEN 16 mg/dL 7-21 (BEAKER) (test uidm=952) CREATININE (BEAKER) (test 1.29 mg/dL 0.57-1.25 kdyh=527) GLUCOSE RANDOM (BEAKER) 139 mg/dL 70-105 (test bvmi=448) CALCIUM (BEAKER) (test 8.5 mg/dL 8.4-10.2 ccth=564) AST (SGOT) (BEAKER) (test 23 U/L 5-34 triv=444) ALT (SGPT) (BEAKER) (test 8 U/L 6-55 blvi=143) EGFR (BEAKER) (test 42 mL/min/1.73 sq m ESTIMATED GFR IS NOT nsfe=3246) ACCURATE CREATININE CLEARANCE IN PREDICTING GLOMERULAR FILTRATION RATE. ESTIMATED GFR IS NOT APPLICABLE FOR DIALYSIS PATIENTS. Specimen slightly ictericCBC W/PLT COUNT & AUTO [id number] 06:20 :00 Test Item Value Reference Range Comments WHITE BLOOD CELL COUNT (BEAKER) (test hpql=649) 4.7 K/ L 3.5-10.5 RED BLOOD CELL COUNT (BEAKER) (test aidi=258) 2.71 M/ L 3.93-5.22 HEMOGLOBIN (BEAKER) (test mfov=738) 7.5 GM/DL 11.2-15.7 HEMATOCRIT (BEAKER) (test nvsa=268) 23.9 % 34.1-44.9 MEAN CORPUSCULAR VOLUME (BEAKER) (test sclp=709) 88.2 fL 79.4-94.8 MEAN CORPUSCULAR HEMOGLOBIN (BEAKER) (test 27.7 pg 25.6-32.2 dnao=667) MEAN CORPUSCULAR HEMOGLOBIN CONC (BEAKER) (test 31.4 GM/DL 32.2-35.5 cnhv=721) RED CELL DISTRIBUTION WIDTH (BEAKER) (test 17.6 % 11.7-14.4 cwzx=101) PLATELET COUNT (BEAKER) (test wdxv=774) 137 K/CU MM 150-450 MEAN PLATELET VOLUME (BEAKER) (test yiga=345) 9.6 fL 9.4-12.3 NUCLEATED RED BLOOD CELLS (BEAKER) (test 0 /100 WBC 0-0 ouxo=825) NEUTROPHILS RELATIVE PERCENT (BEAKER) (test 45 % qyus=267) LYMPHOCYTES RELATIVE PERCENT (BEAKER) (test 33 % qkkl=711) MONOCYTES RELATIVE PERCENT (BEAKER) (test 12 % gdwu=575) EOSINOPHILS RELATIVE PERCENT (BEAKER) (test 9 % swaw=498) BASOPHILS RELATIVE PERCENT (BEAKER) (test 1 % pnrv=096) NEUTROPHILS ABSOLUTE COUNT (BEAKER) (test 2.13 K/ L 1.56-6.13 eooa=564) LYMPHOCYTES ABSOLUTE COUNT (BEAKER) (test 1.56 K/ L 1.18-3.74 dijo=743) MONOCYTES ABSOLUTE COUNT (BEAKER) (test 0.57 K/ L 0.24-0.36 rskb=965) EOSINOPHILS ABSOLUTE COUNT (BEAKER) (test 0.41 K/ L 0.04-0.36 qmoi=530) BASOPHILS ABSOLUTE COUNT (BEAKER) (test 0.05 K/ L 0.01-0.08 zbhd=255) IMMATURE GRANULOCYTES-RELATIVE PERCENT (BEAKER) 0 % 0-1 (test gaza=4264) CALCIUM, [id number] 05:29:00 Test Item Value Reference Range Comments CALCIUM IONIZED (BEAKER) (test gxyc=611) 1.02 mmol/L 1.12-1.27 PH, BLOOD (BEAKER) (test mqtd=2830) 7.53 POCT-GLUCOSE [id number] 22:13:00 Test Item Value Reference Range Comments POC-GLUCOSE METER (BEAKER) 315 mg/dL 70-110 Notified ALEXI ENNIS/TESTED AT [facility] (test xjfs=7198) [address] [place] [address] POCT-GLUCOSE [id number] 18:43:00 Test Item Value Reference Range Comments POC-GLUCOSE METER (BEAKER) 204 mg/dL 70-110 TESTED AT [address] (test hdzd=4543) [facility] [address] U/S, [id number] 17:14:00Reason for exam:->ascitesFINAL REPORT Ultrasound guided paracentesis. Clinical History: Ascites. Sedation: None. Operators: This procedure was performed by SARIKA Lee under direct supervision of Akil Chung M.D. Manufacturing Machine Operator: None. Estimated Blood Loss: < 1 cc. [...] was achieved with 2% lidocaine, a 5 Eritrean one-step catheter was advanced into the peritoneal cavity under ultrasound guidance. After completion of drainage, the catheter was removed. There was no evidence of complication. Impression:Successful ultrasound guided paracentesis. Signed: Akil Chung MDReport Verified Date/Time: 05/26/2019 17:14:25 Reading Location : [facility] P006J Ultrasound Reading Room U/S, [id number] 17:12:00Reason for exam:->ascitesFINAL REPORT Ultrasound guided paracentesis Clinical History: Ascites. Sedation: None. Hide Grader: Micheline Pena PA-C Supervising Physician: Shravan Ruiz MD Manufacturing Machine Operator: None. Estimated Blood Loss: < 1 mL. [...] anesthesia was achieved with lidocaine, a 5 Eritrean one-step catheter was advanced into theperitoneal cavity under ultrasound guidance. After completion of drainage, the catheter was removed.There was no evidence of complication. Impression:Successful ultrasound guided paracentesis. Signed:Shravan Ruiz MDReport Verified Date/Time: 05/26/2019 17:12:51 Reading Location: [facility] P006J Ultrasound Reading Room POCT-GLUCOSE [id number] 17:02: 00 Test Item Value Reference Range Comments POC-GLUCOSE METER (BEAKER) 204 mg/dL 70-110 TESTED AT [address] (test jwvs=8911) [place] [address] POCT-GLUCOSE [id number] 13:52:00 Test Item Value Reference Range Comments POC-GLUCOSE METER (BEAKER) 185 mg/dL 70-110 TESTED AT [address] (test vski=0413) [place] [address] BODY FLUID CELL COUNT WITH [id number] 13:12:00 Test Item Value Reference Range Comments APPEARANCE FLUID (BEAKER) (test objd=889) Slightly Hazy Clear COLOR FLUID (BEAKER) (test owwi=256) Yellow Colorless, Straw RBC FLUID (BEAKER) (test mubo=199) 3000 /cu mm <=1 ADJUSTED WBC FLUID (BEAKER) (test gcnp=6192) 107 /cu mm <=5 LINING CELLS (BEAKER) (test tflc=2338) 13 /cu mm <=1 NEUTROPHILS FLUID (BEAKER) (test lqxr=0125) 0 % LYMPHS FLUID (BEAKER) (test nwcs=476) 21 % MONO/MACROPHAGE FLUID (BEAKER) (test 78 % wllo=529) EOSINOPHILS FLUID (BEAKER) (test ychi=505) 1 % BASO FLUID (BEAKER) (test uykq=757) 0 % CONTAINER BODY FLUID (BEAKER) (test EDTA Tube bqqg=2349) POCT-GLUCOSE [id number] 08:40:00 Test Item Value Reference Range Comments POC-GLUCOSE METER (BEAKER) 113 mg/dL 70-110 TESTED AT [address] (test eofn=8843) [place] [address] [id number] 07:18:00 Test Item Value Reference Range Comments T3 TOTAL (BEAKER) (test 34 ng/dL 48-159 Performed at [facility]. Refer. nefi=899) Range:76-181 [id number] 05:45:00 Test Item Value Reference Range Comments PHOSPHORUS (BEAKER) (test qefs=895) 1.7 mg/dL 2.3-4.7 [id number] 05:45:00 Test Item Value Reference Range Comments MAGNESIUM (BEAKER) (test zvmj=607) 1.8 mg/dL 1.6-2.6 COMPREHENSIVE METABOLIC [id number] 05:45:00 Test Item Value Reference Range Comments TOTAL PROTEIN (BEAKER) 5.1 gm/dL 6.0-8.3 (test rrly=157) ALBUMIN (BEAKER) (test 3.1 g/dL 3.5-5.0 yxeo=7081) ALKALINE PHOSPHATASE 88 U/L 40-150 (BEAKER) (test ecya=738) BILIRUBIN TOTAL (BEAKER) 1.6 mg/dL 0.2-1.2 (test tgdb=344) SODIUM (BEAKER) (test 140 meq/L 136-145 ybek=412) POTASSIUM (BEAKER) (test 3.8 meq/L 3.5-5.1 uaci=022) CHLORIDE (BEAKER) (test 100 meq/L 98-107 utvh=416) CO2 (BEAKER) (test 36 meq/L 22-29 qvnl=111) BLOOD UREA NITROGEN 16 mg/dL 7-21 (BEAKER) (test iffr=701) CREATININE (BEAKER) (test 1.37 mg/dL 0.57-1.25 hymx=936) GLUCOSE RANDOM (BEAKER) 159 mg/dL 70-105 (test pire=720) CALCIUM (BEAKER) (test 8.4 mg/dL 8.4-10.2 vthe=446) AST (SGOT) (BEAKER) (test 26 U/L 5-34 omka=619) ALT (SGPT) (BEAKER) (test 10 U/L 6-55 qrza=538) EGFR (BEAKER) (test 39 mL/min/1.73 sq m ESTIMATED GFR IS NOT ltcr=5118) ACCURATE CREATININE CLEARANCE IN PREDICTING GLOMERULAR FILTRATION RATE. ESTIMATED GFR IS NOT APPLICABLE FOR DIALYSIS PATIENTS. CALCIUM, [id number] 05:11:00 Test Item Value Reference Range Comments CALCIUM IONIZED (BEAKER) (test kmmt=001) 0.99 mmol/L 1.12-1.27 PH, BLOOD (BEAKER) (test mdvo=7569) 7.57 CBC W/PLT COUNT & AUTO [id number] 05:04:00 Test Item Value Reference Range Comments WHITE BLOOD CELL COUNT (BEAKER) (test vnjv=115) 4.6 K/ L 3.5-10.5 RED BLOOD CELL COUNT (BEAKER) (test awap=762) 2.81 M/ L 3.93-5.22 HEMOGLOBIN (BEAKER) (test guvt=797) 7.8 GM/DL 11.2-15.7 HEMATOCRIT (BEAKER) (test edze=881) 24.6 % 34.1-44.9 MEAN CORPUSCULAR VOLUME (BEAKER) (test fqcf=499) 87.5 fL 79.4-94.8 MEAN CORPUSCULAR HEMOGLOBIN (BEAKER) (test 27.8 pg 25.6-32.2 dxxj=196) MEAN CORPUSCULAR HEMOGLOBIN CONC (BEAKER) (test 31.7 GM/DL 32.2-35.5 uscz=787) RED CELL DISTRIBUTION WIDTH (BEAKER) (test 17.2 % 11.7-14.4 jpzi=111) PLATELET COUNT (BEAKER) (test pkcg=481) 129 K/CU MM 150-450 MEAN PLATELET VOLUME (BEAKER) (test gzda=457) 9.0 fL 9.4-12.3 NUCLEATED RED BLOOD CELLS (BEAKER) (test 0 /100 WBC 0-0 jneo=791) NEUTROPHILS RELATIVE PERCENT (BEAKER) (test 47 % iwvv=795) LYMPHOCYTES RELATIVE PERCENT (BEAKER) (test 29 % embp=424) MONOCYTES RELATIVE PERCENT (BEAKER) (test 13 % uhcy=874) EOSINOPHILS RELATIVE PERCENT (BEAKER) (test 11 % vdhv=075) BASOPHILS RELATIVE PERCENT (BEAKER) (test 1 % gltq=302) NEUTROPHILS ABSOLUTE COUNT (BEAKER) (test 2.17 K/ L 1.56-6.13 fziv=104) LYMPHOCYTES ABSOLUTE COUNT (BEAKER) (test 1.32 K/ L 1.18-3.74 zzlu=285) MONOCYTES ABSOLUTE COUNT (BEAKER) (test 0.58 K/ L 0.24-0.36 oyqv=854) EOSINOPHILS ABSOLUTE COUNT (BEAKER) (test 0.49 K/ L 0.04-0.36 inie=922) BASOPHILS ABSOLUTE COUNT (BEAKER) (test 0.06 K/ L 0.01-0.08 hviq=785) IMMATURE GRANULOCYTES-RELATIVE PERCENT (BEAKER) 0 % 0-1 (test oooj=9499) POCT-GLUCOSE [id number] 23:10:00 Test Item Value Reference Range Comments POC-GLUCOSE METER (BEAKER) 239 mg/dL 70-110 TESTED AT [address] (test dhms=6283) [place] [address] [id number] 19:02:00 Test Item Value Reference Range Comments SODIUM (BEAKER) (test pmso=640) 138 meq/L 136-145 POTASSIUM (BEAKER) (test siqt=350) 3.7 meq/L 3.5-5.1 CHLORIDE (BEAKER) (test yony=551) 100 meq/L 98-107 CO2 (BEAKER) (test wans=035) 31 meq/L 22-29 Call [id number] with resultsPOCT-GLUCOSE [id number] 16:50:00 Test Item Value Reference Range Comments POC-GLUCOSE METER (BEAKER) 203 mg/dL 70-110 TESTED AT [address] (test nmxk=7040) [place] [address] POCT-GLUCOSE [id number] 12:49:00 Test Item Value Reference Range Comments POC-GLUCOSE METER (BEAKER) 219 mg/dL 70-110 TESTED AT [address] (test wpyr=8354) [place] [address] ANTI-NUCLEAR ANTIBODY (QUE)[id number] 10:03:00 Test Item Value Reference Range Comments ANTI-NUCLEAR ANTIBODY (QUE) (BEAKER) (test Negative Negative kyyk=845) Test performed by IFA method.Test performed by IFA method.POCT-GLUCOSE [id number] 08:54:00 Test Item Value Reference Range Comments POC-GLUCOSE METER (BEAKER) 125 mg/dL 70-110 TESTED AT [address] (test tqbo=1066) [place] [address] BASIC METABOLIC [id number] 07:41:00 Test Item Value Reference Range Comments SODIUM (BEAKER) (test 141 meq/L 136-145 tvoy=773) POTASSIUM (BEAKER) (test 3.0 meq/L 3.5-5.1 fcjc=927) CHLORIDE (BEAKER) (test 101 meq/L 98-107 grjt=788) CO2 (BEAKER) (test 35 meq/L 22-29 seet=807) BLOOD UREA NITROGEN 16 mg/dL 7-21 (BEAKER) (test xycq=330) CREATININE (BEAKER) (test 1.31 mg/dL 0.57-1.25 bubk=403) GLUCOSE RANDOM (BEAKER) 136 mg/dL 70-105 (test abnf=539) CALCIUM (BEAKER) (test 7.9 mg/dL 8.4-10.2 luav=727) EGFR (BEAKER) (test 41 mL/min/1.73 sq m ESTIMATED GFR IS NOT psnq=0661) ACCURATE CREATININE CLEARANCE IN PREDICTING GLOMERULAR FILTRATION RATE. ESTIMATED GFR IS NOT APPLICABLE FOR DIALYSIS PATIENTS. [id number] 07:32:00 Test Item Value Reference Range Comments PHOSPHORUS (BEAKER) (test uhgo=190) 2.0 mg/dL 2.3-4.7 [id number] 07:32:00 Test Item Value Reference Range Comments MAGNESIUM (BEAKER) (test yfxb=572) 1.6 mg/dL 1.6-2.6 HEPATIC FUNCTION [id number] 07:32:00 Test Item Value Reference Range Comments TOTAL PROTEIN (BEAKER) (test ltps=782) 4.9 gm/dL 6.0-8.3 ALBUMIN (BEAKER) (test suhj=3732) 3.0 g/dL 3.5-5.0 BILIRUBIN TOTAL (BEAKER) (test bgco=808) 1.4 mg/dL 0.2-1.2 BILIRUBIN DIRECT (BEAKER) (test eyaj=675) 0.7 mg/dL 0.1-0.5 ALKALINE PHOSPHATASE (BEAKER) (test lbit=366) 86 U/L 40-150 AST (SGOT) (BEAKER) (test eojd=721) 25 U/L 5-34 ALT (SGPT) (BEAKER) (test xnlu=359) 10 U/L 6-55 CBC W/PLT COUNT & AUTO [id number] 06:11:00 Test Item Value Reference Range Comments WHITE BLOOD CELL COUNT (BEAKER) (test qgfu=018) 4.2 K/ L 3.5-10.5 RED BLOOD CELL COUNT (BEAKER) (test zqfc=319) 2.68 M/ L 3.93-5.22 HEMOGLOBIN (BEAKER) (test tlrs=675) 7.4 GM/DL 11.2-15.7 HEMATOCRIT (BEAKER) (test thdx=887) 23.5 % 34.1-44.9 MEAN CORPUSCULAR VOLUME (BEAKER) (test fhmn=912) 87.7 fL 79.4-94.8 MEAN CORPUSCULAR HEMOGLOBIN (BEAKER) (test 27.6 pg 25.6-32.2 oiej=720) MEAN CORPUSCULAR HEMOGLOBIN CONC (BEAKER) (test 31.5 GM/DL 32.2-35.5 oail=391) RED CELL DISTRIBUTION WIDTH (BEAKER) (test 18.2 % 11.7-14.4 rrbg=079) PLATELET COUNT (BEAKER) (test tkhv=546) 140 K/CU MM 150-450 MEAN PLATELET VOLUME (BEAKER) (test yinv=577) 10.3 fL 9.4-12.3 NUCLEATED RED BLOOD CELLS (BEAKER) (test 0 /100 WBC 0-0 yzsr=241) NEUTROPHILS RELATIVE PERCENT (BEAKER) (test 44 % sydy=735) LYMPHOCYTES RELATIVE PERCENT (BEAKER) (test 33 % gynq=725) MONOCYTES RELATIVE PERCENT (BEAKER) (test 12 % mjkz=667) EOSINOPHILS RELATIVE PERCENT (BEAKER) (test 10 % esjh=299) BASOPHILS RELATIVE PERCENT (BEAKER) (test 2 % ssgh=271) NEUTROPHILS ABSOLUTE COUNT (BEAKER) (test 1.82 K/ L 1.56-6.13 kluz=172) LYMPHOCYTES ABSOLUTE COUNT (BEAKER) (test 1.36 K/ L 1.18-3.74 zzki=694) MONOCYTES ABSOLUTE COUNT (BEAKER) (test 0.48 K/ L 0.24-0.36 ortf=951) EOSINOPHILS ABSOLUTE COUNT (BEAKER) (test 0.42 K/ L 0.04-0.36 azuv=562) BASOPHILS ABSOLUTE COUNT (BEAKER) (test 0.07 K/ L 0.01-0.08 vgrn=371) IMMATURE GRANULOCYTES-RELATIVE PERCENT (BEAKER) 0 % 0-1 (test wlao=6818) PROTHROMBIN [id number] 05:31:00 Test Item Value Reference Range Comments PROTIME (BEAKER) (test kyrf=264) 14.8 seconds 11.9-14.2 INR (BEAKER) (test aanp=438) 1.2 <=5.9 Effective 04/01/2019: PT Reference Range ChangeNew: 11.9-14.2 Previous: 11.7- 14.7RECOMMENDED COUMADIN/WARFARIN INR THERAPY RANGESSTANDARD DOSE: 2.0-3.0 Includes: PROPHYLAXIS for venous thrombosis, systemic embolization; TREATMENT for venous thrombosis and/or pulmonary embolus.HIGH RISK: Target INR is2.5-3.5 for patients wiht mechanical heart valves.BLOOD [id number] 02:01:00 Test Item Value Reference Range Comments CULTURE (BEAKER) (test fsfo=6275) No growth in 5 days BLOOD [id number] 02:01:00 Test Item Value Reference Range Comments CULTURE (BEAKER) (test ukep=7318) No growth in 5 days POCT-GLUCOSE [id number] 23:07:00 Test Item Value Reference Range Comments POC-GLUCOSE METER (BEAKER) 217 mg/dL 70-110 TESTED AT [address] (test ylfo=2433) [place] [id number] POCT-GLUCOSE [id number] 17:54:00 Test Item Value Reference Range Comments POC-GLUCOSE METER (BEAKER) 138 mg/dL 70-110 TESTED AT [address] (test qdfk=1345) [facility] [address] POCT-GLUCOSE [id number] 12:22:00 Test Item Value Reference Range Comments POC-GLUCOSE METER (BEAKER) 114 mg/dL 70-110 TESTED AT [address] (test swmy=4714) [facility] [address] POCT-GLUCOSE [id number] 07:39:00 Test Item Value Reference Range Comments POC-GLUCOSE METER (BEAKER) 124 mg/dL 70-110 TESTED AT [address] (test rpdn=5697) [facility] [address] HEPATIC FUNCTION [id number] 05:49:00 Test Item Value Reference Range Comments TOTAL PROTEIN (BEAKER) (test hmgv=255) 5.1 gm/dL 6.0-8.3 ALBUMIN (BEAKER) (test mjtc=2962) 2.9 g/dL 3.5-5.0 BILIRUBIN TOTAL (BEAKER) (test lykv=700) 1.3 mg/dL 0.2-1.2 BILIRUBIN DIRECT (BEAKER) (test rxnd=192) 0.7 mg/dL 0.1-0.5 ALKALINE PHOSPHATASE (BEAKER) (test vgpf=885) 91 U/L 40-150 AST (SGOT) (BEAKER) (test vdci=785) 30 U/L 5-34 ALT (SGPT) (BEAKER) (test fkkn=715) 10 U/L 6-55 BASIC METABOLIC [id number] 05:49:00 Test Item Value Reference Range Comments SODIUM (BEAKER) (test 140 meq/L 136-145 hdmq=173) POTASSIUM (BEAKER) (test 3.2 meq/L 3.5-5.1 kjyz=088) CHLORIDE (BEAKER) (test 103 meq/L 98-107 kyck=691) CO2 (BEAKER) (test 27 meq/L 22-29 gnyd=509) BLOOD UREA NITROGEN 17 mg/dL 7-21 (BEAKER) (test kptm=375) CREATININE (BEAKER) (test 1.30 mg/dL 0.57-1.25 qgdq=621) GLUCOSE RANDOM (BEAKER) 143 mg/dL 70-105 (test zdfv=050) CALCIUM (BEAKER) (test 7.9 mg/dL 8.4-10.2 johj=330) EGFR (BEAKER) (test 42 mL/min/1.73 sq m ESTIMATED GFR IS NOT mowy=1049) ACCURATE CREATININE CLEARANCE IN PREDICTING GLOMERULAR FILTRATION RATE. ESTIMATED GFR IS NOT APPLICABLE FOR DIALYSIS PATIENTS. PROTHROMBIN [id number] 05:32:00 Test Item Value Reference Range Comments PROTIME (BEAKER) (test jqwx=828) 14.7 seconds 11.9-14.2 INR (BEAKER) (test nkrc=028) 1.2 <=5.9 Effective 04/01/2019: PT Reference Range ChangeNew: 11.9-14.2 Previous: 11.7- 14.7RECOMMENDED COUMADIN/WARFARIN INR THERAPY RANGESSTANDARD DOSE: 2.0-3.0 Includes: PROPHYLAXIS for venous thrombosis, systemic embolization; TREATMENT for venous thrombosis and/or pulmonary embolus.HIGH RISK: Target INR is2.5-3.5 for patients wiht mechanical heart valves.CBC W/PLT COUNT & AUTO [id number] 05:09:00 Test Item Value Reference Range Comments WHITE BLOOD CELL COUNT (BEAKER) (test ottj=752) 4.7 K/ L 3.5-10.5 RED BLOOD CELL COUNT (BEAKER) (test fscn=893) 2.86 M/ L 3.93-5.22 HEMOGLOBIN (BEAKER) (test gzgx=583) 7.9 GM/DL 11.2-15.7 HEMATOCRIT (BEAKER) (test onmf=437) 25.3 % 34.1-44.9 MEAN CORPUSCULAR VOLUME (BEAKER) (test bnel=385) 88.5 fL 79.4-94.8 MEAN CORPUSCULAR HEMOGLOBIN (BEAKER) (test 27.6 pg 25.6-32.2 dqjl=802) MEAN CORPUSCULAR HEMOGLOBIN CONC (BEAKER) (test 31.2 GM/DL 32.2-35.5 lpok=734) RED CELL DISTRIBUTION WIDTH (BEAKER) (test 17.4 % 11.7-14.4 zzkr=059) PLATELET COUNT (BEAKER) (test kodf=994) 141 K/CU MM 150-450 MEAN PLATELET VOLUME (BEAKER) (test uawa=292) 9.3 fL 9.4-12.3 NUCLEATED RED BLOOD CELLS (BEAKER) (test 0 /100 WBC 0-0 lzas=773) NEUTROPHILS RELATIVE PERCENT (BEAKER) (test 50 % ppmy=381) LYMPHOCYTES RELATIVE PERCENT (BEAKER) (test 28 % fupl=204) MONOCYTES RELATIVE PERCENT (BEAKER) (test 11 % rain=631) EOSINOPHILS RELATIVE PERCENT (BEAKER) (test 10 % swwb=892) BASOPHILS RELATIVE PERCENT (BEAKER) (test 1 % msmv=751) NEUTROPHILS ABSOLUTE COUNT (BEAKER) (test 2.33 K/ L 1.56-6.13 bcww=723) LYMPHOCYTES ABSOLUTE COUNT (BEAKER) (test 1.31 K/ L 1.18-3.74 ayfv=704) MONOCYTES ABSOLUTE COUNT (BEAKER) (test 0.51 K/ L 0.24-0.36 fwkg=518) EOSINOPHILS ABSOLUTE COUNT (BEAKER) (test 0.46 K/ L 0.04-0.36 gjzl=767) BASOPHILS ABSOLUTE COUNT (BEAKER) (test 0.06 K/ L 0.01-0.08 eqdx=917) IMMATURE GRANULOCYTES-RELATIVE PERCENT (BEAKER) 0 % 0-1 (test diol=9047) BLOOD GAS, [id number] 22:21:00 Test Item Value Reference Range Comments PH ARTERIAL (BEAKER) (test nlub=933) 7.49 7.35-7.45 PCO2 ARTERIAL (BEAKER) (test iytk=385) 43 mmHg 35-45 PO2 ARTERIAL (BEAKER) (test rdgr=949) 56 mmHg 80-90 O2 SATURATION ARTERIAL (BEAKER) (test rtrd=002) 92.5 % 96.0-97.0 HCO3 ARTERIAL (BEAKER) (test yqto=043) 32 mmol/L 21-29 BASE EXCESS ARTERIAL (BEAKER) (test azom=579) 7.9 mmol/L -2.0-3.0 PATIENT TEMPERATURE (BEAKER) (test vezi=6385) 35.8 C FIO2 (BEAKER) (test vxcs=4700) 21.0 % POCT-GLUCOSE [id number] 21:14:00 Test Item Value Reference Range Comments POC-GLUCOSE METER (BEAKER) 259 mg/dL 70-110 TESTED AT [address] (test ezlb=8753) [place] [id number] BODY FLUID CULTURE + GRAM [id number] 18:00:00 Test Item Value Reference Range Comments CULTURE (BEAKER) (test mawx=7471) No growth GRAM STAIN RESULT (BEAKER) (test No WBCs tlib=9479) GRAM STAIN RESULT (BEAKER) (test No organisms seen zjyt=34775) POCT-GLUCOSE [id number] 17:23:00 Test Item Value Reference Range Comments POC-GLUCOSE METER (BEAKER) 201 mg/dL 70-110 TESTED AT [address] (test dyex=0584) [facility] [address] RAD, MANDIBLE, MIN 4 [id number] 15:00:00Reason for exam:->liver transplant evalShould this be [...] are unremarkable. IMPRESSION:Unremarkable exam. . Signed: Giovanni Martinezeport Verified Date/Time: 05/23/201915:00:10 Reading Location: [facility] C0[facility] Transitional Reading Room CRYPTOCOCCAL [id number] 14:59:00 Test Item Value Reference Range Comments CRYPTOCOCCAL ANTIGEN, SERUM (BEAKER) (test Negative Negative, Interference pxpr=2399) [id number] 14:45:00 Test Item Value Reference Range Comments RPR SCREEN (BEAKER) (test qkvr=826) Nonreactive Nonreactive CYTOMEGALOVIRUS ANTIBODY, [id number] 13:48:00 Test Item Value Reference Range Comments CYTOMEGALOVIRUS, IGG (BEAKER) (test wwrz=8019) Positive Negative, Equivocal CMV IgG Result Interpretation: </=0.8 Al Negative 0.9-1.0 Al Equivocal &gt ;/=1.1 Al PositiveCYTOMEGALOVIRUS ANTIBODY, [id number] 13:48:00 Test Item Value Reference Range Comments CYTOMEGALOVIRUS IGM ANTIBODY (BEAKER) (test Negative Negative, Equivocal cbst=6483) CMV IgM Result Interpretation: </=0.8 Al Negative 0.9-1.0 Al Equivocal >/=1.1 Al PositiveEBV ANTIBODY, [id number] 13:48:00 Test Item Value Reference Range Comments BERTRAND BOLES VIRAL CAPSID ANTIGEN IGG (BEAKER) Positive Negative, Equivocal (test abzh=0404) Bertrand Boles Viral Capsid Antigen IgG Result Interpretation: </=0.8 Al Negative 0.9-1.0 Al Equivocal >/=1.1 Al PositiveEBV ANTIBODY, [id number] 13:48:00 Test Item Value Reference Range Comments BERTRAND BOLES VIRAL CAPSID ANTIGEN IGM (BEAKER) Negative Negative, Equivocal (test xepu=9330) Bertrand Boles Viral Capsid Antigen IgM Result Interpretation: </=0.8 Al Negative 0.9-1.0 Al Equivocal >/=1.1 Al PositiveVARICELLA ZOSTER ANTIBODY , [id number] 13:48:00 Test Item Value Reference Range Comments VARICELLA ZOSTER IGG (AL) (BEAKER) (test rzcr=2184) 0.9 VARICELLA ZOSTER RESULT INTERPRETATIONS: <=0.8 Al Nonreactive: Presumed non-immune to VZV 0.9-1.0 Al Equivocal >=1.1 Al Reactive: Presumed immune to VZVRUBELLA ANTIBODY, [id number] 13:48:00 Test Item Value Reference Range Comments RUBELLA IGG QUANTITATION (BEAKER) (test wooc=489) 12.0 IU/mL <8.0 Rubella IgG Result Interpretation: </=7.0 IU/mL Negative - Presumed non- immune 8.0 - 9.9 IU/mL Equivocal >=10.0 IU/mL Positive - Presumed immunePOCT-GLUCOSE [id number] 11:41:00 Test Item Value Reference Range Comments POC-GLUCOSE METER (BEAKER) 162 mg/dL 70-110 TESTED AT [address] (test varl=7577) [facility] [address] POCT-GLUCOSE [id number] 10:06:00 Test Item Value Reference Range Comments POC-GLUCOSE METER (BEAKER) 95 mg/dL 70-110 TESTED AT [address] (test fotk=4355) [facility] [address] IRON, TIBC, % SAT. (WITHOUT FERRITIN)2019-05-23 07:32:00 Test Item Value Reference Range Comments IRON (BEAKER) (test ybwd=665) 30.0 ug/dL 40.0-160.0 TOTAL IRON BINDING CAPACITY (BEAKER) (test 143 ug/dL 250-450 chcc=410) IRON % SATURATION (2) (BEAKER) (test pzfe=4505) 21 % 20-55 [id number] 06:29:00 Test Item Value Reference Range Comments PHOSPHORUS (BEAKER) (test xrcd=158) 1.9 mg/dL 2.3-4.7 [id number] 06:29:00 Test Item Value Reference Range Comments MAGNESIUM (BEAKER) (test xiik=575) 1.5 mg/dL 1.6-2.6 HEPATIC FUNCTION [id number] 06:29:00 Test Item Value Reference Range Comments TOTAL PROTEIN (BEAKER) (test xyhl=041) 5.2 gm/dL 6.0-8.3 ALBUMIN (BEAKER) (test gneb=4209) 3.0 g/dL 3.5-5.0 BILIRUBIN TOTAL (BEAKER) (test gtfy=424) 1.6 mg/dL 0.2-1.2 BILIRUBIN DIRECT (BEAKER) (test xsdi=346) 0.8 mg/dL 0.1-0.5 ALKALINE PHOSPHATASE (BEAKER) (test iabs=971) 87 U/L 40-150 AST (SGOT) (BEAKER) (test jksq=947) 24 U/L 5-34 ALT (SGPT) (BEAKER) (test mbse=338) 11 U/L 6-55 COMPREHENSIVE METABOLIC [id number] 06:29:00 Test Item Value Reference Range Comments TOTAL PROTEIN (BEAKER) 5.2 gm/dL 6.0-8.3 (test iohu=818) ALBUMIN (BEAKER) (test 3.0 g/dL 3.5-5.0 qutg=3753) ALKALINE PHOSPHATASE 87 U/L 40-150 (BEAKER) (test vebw=539) BILIRUBIN TOTAL (BEAKER) 1.6 mg/dL 0.2-1.2 (test xqbr=244) SODIUM (BEAKER) (test 139 meq/L 136-145 ubry=878) POTASSIUM (BEAKER) (test 3.3 meq/L 3.5-5.1 wcyk=984) CHLORIDE (BEAKER) (test 104 meq/L 98-107 qwhw=667) CO2 (BEAKER) (test 30 meq/L 22-29 gmet=586) BLOOD UREA NITROGEN 18 mg/dL 7-21 (BEAKER) (test pjao=547) CREATININE (BEAKER) (test 1.41 mg/dL 0.57-1.25 dxod=443) GLUCOSE RANDOM (BEAKER) 102 mg/dL 70-105 (test nfgt=425) CALCIUM (BEAKER) (test 8.1 mg/dL 8.4-10.2 uxxn=670) AST (SGOT) (BEAKER) (test 24 U/L 5-34 zevc=271) ALT (SGPT) (BEAKER) (test 11 U/L 6-55 duui=330) EGFR (BEAKER) (test 38 mL/min/1.73 sq m ESTIMATED GFR IS NOT yoep=6300) ACCURATE CREATININE CLEARANCE IN PREDICTING GLOMERULAR FILTRATION RATE. ESTIMATED GFR IS NOT APPLICABLE FOR DIALYSIS PATIENTS. CBC W/PLT COUNT & AUTO [id number] 05:46:00 Test Item Value Reference Range Comments WHITE BLOOD CELL COUNT (BEAKER) (test kazp=546) 4.9 K/ L 3.5-10.5 RED BLOOD CELL COUNT (BEAKER) (test mebh=604) 2.83 M/ L 3.93-5.22 HEMOGLOBIN (BEAKER) (test cvyr=669) 8.0 GM/DL 11.2-15.7 HEMATOCRIT (BEAKER) (test rlzj=729) 24.4 % 34.1-44.9 MEAN CORPUSCULAR VOLUME (BEAKER) (test fosd=378) 86.2 fL 79.4-94.8 MEAN CORPUSCULAR HEMOGLOBIN (BEAKER) (test 28.3 pg 25.6-32.2 mkmp=762) MEAN CORPUSCULAR HEMOGLOBIN CONC (BEAKER) (test 32.8 GM/DL 32.2-35.5 doak=395) RED CELL DISTRIBUTION WIDTH (BEAKER) (test 17.6 % 11.7-14.4 evmm=462) PLATELET COUNT (BEAKER) (test hcrt=999) 147 K/CU MM 150-450 MEAN PLATELET VOLUME (BEAKER) (test yiam=190) 9.1 fL 9.4-12.3 NUCLEATED RED BLOOD CELLS (BEAKER) (test 0 /100 WBC 0-0 trxx=465) NEUTROPHILS RELATIVE PERCENT (BEAKER) (test 51 % xmjx=448) LYMPHOCYTES RELATIVE PERCENT (BEAKER) (test 27 % aytj=247) MONOCYTES RELATIVE PERCENT (BEAKER) (test 11 % alzy=748) EOSINOPHILS RELATIVE PERCENT (BEAKER) (test 10 % mgxl=771) BASOPHILS RELATIVE PERCENT (BEAKER) (test 1 % ogtp=084) NEUTROPHILS ABSOLUTE COUNT (BEAKER) (test 2.51 K/ L 1.56-6.13 fizj=945) LYMPHOCYTES ABSOLUTE COUNT (BEAKER) (test 1.30 K/ L 1.18-3.74 bmjn=074) MONOCYTES ABSOLUTE COUNT (BEAKER) (test 0.54 K/ L 0.24-0.36 twet=997) EOSINOPHILS ABSOLUTE COUNT (BEAKER) (test 0.48 K/ L 0.04-0.36 jibd=649) BASOPHILS ABSOLUTE COUNT (BEAKER) (test 0.06 K/ L 0.01-0.08 yqav=539) IMMATURE GRANULOCYTES-RELATIVE PERCENT (BEAKER) 0 % 0-1 (test fzxl=0025) PROTHROMBIN [id number] 05:46:00 Test Item Value Reference Range Comments PROTIME (BEAKER) (test dokn=296) 14.9 seconds 11.9-14.2 INR (BEAKER) (test ptuk=969) 1.2 <=5.9 Effective 04/01/2019: PT Reference Range ChangeNew: 11.9-14.2 Previous: 11.7- 14.7RECOMMENDED COUMADIN/WARFARIN INR THERAPY RANGESSTANDARD DOSE: 2.0-3.0 Includes: PROPHYLAXIS for venous thrombosis, systemic embolization; TREATMENT for venous thrombosis and/or pulmonary embolus.HIGH RISK: Target INR is2.5-3.5 for patients wiht mechanical heart valves.CALCIUM, [id number] 05:44:00 Test Item Value Reference Range Comments CALCIUM IONIZED (BEAKER) (test ehob=117) 0.99 mmol/L 1.12-1.27 PH, BLOOD (NISHANTAKER) (test lefp=3218) 7.48 HEMOGLOBIN [id number] 22:07:00 Test Item Value Reference Range Comments HEMOGLOBIN A1C (BEAKER) (test lpbp=124) 8.1 % 4.3-6.1 POCT-GLUCOSE [id number] 21:38:00 Test Item Value Reference Range Comments POC-GLUCOSE METER (BEAKER) 213 mg/dL 70-110 TESTED AT [address] (test maba=3944) [place] [address] POCT-GLUCOSE [id number] 18:07:00 Test Item Value Reference Range Comments POC-GLUCOSE METER (BEAKER) 212 mg/dL 70-110 TESTED AT [address] (test blyv=7938) [facility] [address] ALPHA FETOPROTEIN (AFP), TUMOR [id number] 17:50:00 Test Item Value Reference Range Comments ALPHA-FETOPROTEIN (BEAKER) (test fhgx=5780) < ng/mL <10.0 HEPATITIS C [id number] 17:49:00 Test Item Value Reference Range Comments HEPATITIS C ANTIBODY (BEAKER) (test bauw=995) Nonreactive Nonreactive VITAMIN D, [id number] 15:10:00 Test Item Value Reference Range Comments VITAMIN D 25-OH (BEAKER) (test bwej=7068) < ng/mL 6.6-49.9 Effective 08/14/2017: Reference Range ChangeNew: 6.6-49.9 ng/mL Previous: 13.0 -47.8 ng/mLRecommended Vitamin D Target Range: 30.0-40.0 ng/mLHEPATITIS B SURFACE [id number] 15:10:00 Test Item Value Reference Range Comments HEPATITIS B SURFACE ANTIBODY (BEAKER) (test < mIU/mL <8.0 rtwk=684) CARCINOEMBRYONIC ANTIGEN (CEA)2019-05-22 15:10:00 Test Item Value Reference Range Comments CARCINOEMBRYONIC ANTIGEN (BEAKER) (test cltb=925) < ng/mL 0.0-5.0 HEPATITIS B CORE ANTIBODY, [id number] 15:08:00 Test Item Value Reference Range Comments HEPATITIS B CORE IGM ANTIBODY (BEAKER) (test Nonreactive Nonreactive jayo=170) HEPATITIS A ANTIBODY, [id number] 15:08:00 Test Item Value Reference Range Comments HEPATITIS A IGM ANTIBODY (BEAKER) (test Nonreactive Nonreactive rnik=024) HEPATITIS A ANTIBODY, [id number] 15:08:00 Test Item Value Reference Range Comments HEPATITIS A IGG ANTIBODY (BEAKER) (test Nonreactive Nonreactive wqwr=6289) HEPATITIS B SURFACE [id number] 15:05:00 Test Item Value Reference Range Comments HEPATITIS B SURFACE ANTIGEN (2) (BEAKER) (test Nonreactive Nonreactive iwhp=5590) HEPATITIS B CORE ANTIBODY, [id number] 15:05:00 Test Item Value Reference Range Comments HEPATITIS B CORE TOTAL ANTIBODY (BEAKER) (test Nonreactive Nonreactive rkdz=639) HIV-1 ANTIGEN WITH HIV-1/2 [id number] 15:05:00 Test Item Value Reference Range Comments HIV-1 ANTIGEN WITH HIV 1\\T\\2 ANTIBODY (2) Nonreactive Nonreactive (BEAKER) (test joga=2297) URIC [id number] 14:46:00 Test Item Value Reference Range Comments URIC ACID (BEAKER) (test mhka=154) 5.7 mg/dL 2.6-7.2 LIPID [id number] 14:46:00 Test Item Value Reference Range Comments TRIGLYCERIDES (BEAKER) (test eqtk=923) 71 mg/dL CHOLESTEROL (BEAKER) (test qnia=615) 72 mg/dL HDL CHOLESTEROL (BEAKER) (test hsmu=947) 20 mg/dL LDL CHOLESTEROL CALCULATED (BEAKER) (test jeku=446) 38 mg/dL Triglyceride Reference Range: Low Risk <150 Borderline 150- 199 High Risk 200-499 Very High Risk >=500Cholesterol Reference Range: Low Risk <200 Borderline 200-239 High Risk > 240HDL Cholesterol Reference Range: Low Risk >=60 High Risk <40LDL Cholesterol Reference Range: Optimal <100 Near Optimal 100-129 Borderline 130-159 High 160-189 Very High >=190BILIRUBIN, [id number] 14:46:00 Test Item Value Reference Range Comments BILIRUBIN DIRECT (BEAKER) (test edmp=741) 0.8 mg/dL 0.1-0.5 GAMMA GLUTAMYL TRANSFERASE (GGT)2019-05-22 14:46:00 Test Item Value Reference Range Comments GAMMA GLUTAMYL TRANSFERASE (BEAKER) (test sbni=942) 10 U/L 9-64 [id number] 14:45:00 Test Item Value Reference Range Comments ETHANOL (BEAKER) (test geic=959) < mg/dL <=10 [id number] 14:44:00 Test Item Value Reference Range Comments TRANSFERRIN (BEAKER) (test zuew=677) 109 mg/dL 174-382 IRON, TIBC, % SAT. (WITHOUT FERRITIN)2019-05-22 14:44:00 Test Item Value Reference Range Comments IRON (BEAKER) (test fwqo=760) 40.0 ug/dL 40.0-160.0 TOTAL IRON BINDING CAPACITY (BEAKER) (test 136 ug/dL 250-450 cdji=902) IRON % SATURATION (2) (BEAKER) (test ysll=2731) 29 % 20-55 [id number] 14:34:00 Test Item Value Reference Range Comments PARTIAL THROMBOPLASTIN TIME (BEAKER) (test 35.7 seconds 22.5-36.0 eyqp=234) [id number] 14:33:00 Test Item Value Reference Range Comments FIBRINOGEN LEVEL (BEAKER) (test cvlq=929) 282 mg/dl 225-434 U/S, ABDOMINAL, WITH [id number] 14:09:00Reason for exam:->TIPS evaluationFINAL REPORT Ultrasound of [...] Ascites.3. TIPS evaluation as above. Signed: Missy [place] Verified Date/Time: 05/22/2019 14:09:52 Reading Location: [address] Radiology Reading Room Electronically signed by: MISSY MOMIN M.D. on 2018 02:09 PMPOCT-GLUCOSE [id number] 12:31:00 Test Item Value Reference Range Comments POC-GLUCOSE METER (BEAKER) 252 mg/dL 70-[address] [facility] [address] (test akrf=1722) [facility] [address] COMPREHENSIVE METABOLIC [id number] 08:22:00 Test Item Value Reference Range Comments TOTAL PROTEIN (BEAKER) 4.8 gm/dL 6.0-8.3 (test agcu=650) ALBUMIN (BEAKER) (test 3.0 g/dL 3.5-5.0 pesn=9465) ALKALINE PHOSPHATASE 77 U/L 40-150 (BEAKER) (test hsbj=952) BILIRUBIN TOTAL (BEAKER) 1.6 mg/dL 0.2-1.2 (test zqiw=198) SODIUM (BEAKER) (test 141 meq/L 136-145 kfdd=635) POTASSIUM (BEAKER) (test 3.1 meq/L 3.5-5.1 uglg=178) CHLORIDE (BEAKER) (test 105 meq/L 98-107 njza=589) CO2 (BEAKER) (test 31 meq/L 22-29 ffwr=209) BLOOD UREA NITROGEN 18 mg/dL 7-21 (BEAKER) (test ease=907) CREATININE (BEAKER) (test 1.50 mg/dL 0.57-1.25 lnsc=416) GLUCOSE RANDOM (BEAKER) 145 mg/dL 70-105 (test abuf=154) CALCIUM (BEAKER) (test 7.9 mg/dL 8.4-10.2 vkry=505) AST (SGOT) (BEAKER) (test 23 U/L 5-34 lywb=264) ALT (SGPT) (BEAKER) (test 7 U/L 6-55 gdda=617) EGFR (BEAKER) (test 35 mL/min/1.73 sq m ESTIMATED GFR IS NOT ooxl=6783) ACCURATE CREATININE CLEARANCE IN PREDICTING GLOMERULAR FILTRATION RATE. ESTIMATED GFR IS NOT APPLICABLE FOR DIALYSIS PATIENTS. [id number] 08:19:00 Test Item Value Reference Range Comments PHOSPHORUS (BEAKER) (test muby=839) 2.2 mg/dL 2.3-4.7 [id number] 08:19:00 Test Item Value Reference Range Comments MAGNESIUM (BEAKER) (test rjdc=691) 1.5 mg/dL 1.6-2.6 HEPATIC FUNCTION [id number] 08:19:00 Test Item Value Reference Range Comments TOTAL PROTEIN (BEAKER) (test xgsm=939) 4.8 gm/dL 6.0-8.3 ALBUMIN (BEAKER) (test iftz=3462) 3.0 g/dL 3.5-5.0 BILIRUBIN TOTAL (BEAKER) (test pqxr=267) 1.6 mg/dL 0.2-1.2 BILIRUBIN DIRECT (BEAKER) (test oxiy=748) 0.7 mg/dL 0.1-0.5 ALKALINE PHOSPHATASE (BEAKER) (test xghe=929) 77 U/L 40-150 AST (SGOT) (BEAKER) (test mntd=022) 23 U/L 5-34 ALT (SGPT) (BEAKER) (test wfom=006) 7 U/L 6-55 POCT-GLUCOSE [id number] 08:08:00 Test Item Value Reference Range Comments POC-GLUCOSE METER (BEAKER) 154 mg/dL 70-[address] [facility] [address] [facility] (test ppdt=3627) [facility] [address] B-TYPE NATRIURETIC FACTOR (BNP)2019-05-22 06:18:00 Test Item Value Reference Range Comments B-TYPE NATRIURETIC PEPTIDE (BEAKER) (test 411 pg/mL 0-100 renx=638) PROTHROMBIN [id number] 06:00:00 Test Item Value Reference Range Comments PROTIME (BEAKER) (test cyux=079) 14.9 seconds 11.9-14.2 INR (BEAKER) (test goha=981) 1.2 <=5.9 Effective 04/01/2019: PT Reference Range ChangeNew: 11.9-14.2 Previous: 11.7- 14.7RECOMMENDED COUMADIN/WARFARIN INR THERAPY RANGESSTANDARD DOSE: 2.0-3.0 Includes: PROPHYLAXIS for venous thrombosis, systemic embolization; TREATMENT for venous thrombosis and/or pulmonary embolus.HIGH RISK: Target INR is2.5-3.5 for patients wiht mechanical heart valves.CALCIUM, [id number] 05:48:00 Test Item Value Reference Range Comments CALCIUM IONIZED (BEAKER) (test ebft=112) 1.04 mmol/L 1.12-1.27 PH, BLOOD (BEAKER) (test rjid=2478) 7.40 CBC W/PLT COUNT & AUTO [id number] 05:45:00 Test Item Value Reference Range Comments WHITE BLOOD CELL COUNT (BEAKER) (test yisa=157) 4.1 K/ L 3.5-10.5 RED BLOOD CELL COUNT (BEAKER) (test wyiv=329) 2.71 M/ L 3.93-5.22 HEMOGLOBIN (BEAKER) (test iuys=045) 7.4 GM/DL 11.2-15.7 HEMATOCRIT (BEAKER) (test hvcb=643) 23.6 % 34.1-44.9 MEAN CORPUSCULAR VOLUME (BEAKER) (test cehh=828) 87.1 fL 79.4-94.8 MEAN CORPUSCULAR HEMOGLOBIN (BEAKER) (test 27.3 pg 25.6-32.2 lilk=654) MEAN CORPUSCULAR HEMOGLOBIN CONC (BEAKER) (test 31.4 GM/DL 32.2-35.5 lusg=892) RED CELL DISTRIBUTION WIDTH (BEAKER) (test 17.2 % 11.7-14.4 ekow=361) PLATELET COUNT (BEAKER) (test ewru=722) 126 K/CU MM 150-450 MEAN PLATELET VOLUME (BEAKER) (test icga=896) 9.2 fL 9.4-12.3 NUCLEATED RED BLOOD CELLS (BEAKER) (test 0 /100 WBC 0-0 hcyw=290) NEUTROPHILS RELATIVE PERCENT (BEAKER) (test 49 % ewbg=306) LYMPHOCYTES RELATIVE PERCENT (BEAKER) (test 29 % tstd=919) MONOCYTES RELATIVE PERCENT (BEAKER) (test 12 % pbrk=383) EOSINOPHILS RELATIVE PERCENT (BEAKER) (test 8 % mkit=609) BASOPHILS RELATIVE PERCENT (BEAKER) (test 1 % fnjv=021) NEUTROPHILS ABSOLUTE COUNT (BEAKER) (test 2.03 K/ L 1.56-6.13 kyyv=103) LYMPHOCYTES ABSOLUTE COUNT (BEAKER) (test 1.21 K/ L 1.18-3.74 xxjn=209) MONOCYTES ABSOLUTE COUNT (BEAKER) (test 0.51 K/ L 0.24-0.36 qiwk=474) EOSINOPHILS ABSOLUTE COUNT (BEAKER) (test 0.34 K/ L 0.04-0.36 gqmt=524) BASOPHILS ABSOLUTE COUNT (BEAKER) (test 0.04 K/ L 0.01-0.08 aowj=004) IMMATURE GRANULOCYTES-RELATIVE PERCENT (BEAKER) 0 % 0-1 (test hqyz=4603) POCT-GLUCOSE [id number] 21:52:00 Test Item Value Reference Range Comments POC-GLUCOSE METER (BEAKER) 241 mg/dL 70-110 TESTED AT [address] (test vtgz=4426) [place] [address] POCT-GLUCOSE [id number] 17:36:00 Test Item Value Reference Range Comments POC-GLUCOSE METER (BEAKER) 291 mg/dL 70-110 TESTED AT [address] (test zbch=7447) [place] [id number] BODY FLUID CELL COUNT WITH [id number] 13:52:00 Test Item Value Reference Range Comments APPEARANCE FLUID (BEAKER) (test ccxw=966) Clear Clear COLOR FLUID (BEAKER) (test lknk=791) Yellow Colorless, Straw RBC FLUID (BEAKER) (test ralv=159) 1815 /cu mm <=1 ADJUSTED WBC FLUID (BEAKER) (test oczd=0218) 79 /cu mm <=5 LINING CELLS (BEAKER) (test oiww=4542) 14 /cu mm <=1 NEUTROPHILS FLUID (BEAKER) (test zanx=5386) 0 % LYMPHS FLUID (BEAKER) (test vaus=843) 25 % MONO/MACROPHAGE FLUID (BEAKER) (test vxlq=878) 74 % EOSINOPHILS FLUID (BEAKER) (test lxgi=515) 1 % BASO FLUID (BEAKER) (test ekja=284) 0 % CONTAINER BODY FLUID (BEAKER) (test zhxc=6050) EDTA Tube HEMOGLOBIN [id number] 13:47:00 Test Item Value Reference Range Comments HEMOGLOBIN A1C (BEAKER) (test bpzf=041) 8.4 % 4.3-6.1 POCT-GLUCOSE [id number] 11:56:00 Test Item Value Reference Range Comments POC-GLUCOSE METER (BEAKER) 223 mg/dL 70-110 TESTED AT [address] (test pdkt=9736) [place] [id number] POCT-GLUCOSE [id number] 08:31:00 Test Item Value Reference Range Comments POC-GLUCOSE METER (BEAKER) 257 mg/dL 70-110 TESTED AT [address] (test ahfo=6460) [place] [id number] T4, [id number] 08:29:00 Test Item Value Reference Range Comments FREE T4 (BEAKER) (test scmp=242) 0.41 ng/dL 0.70-1.48 BASIC METABOLIC [id number] 08:28:00 Test Item Value Reference Range Comments SODIUM (BEAKER) (test 136 meq/L 136-145 ogqr=801) POTASSIUM (BEAKER) (test 3.4 meq/L 3.5-5.1 fzvg=171) CHLORIDE (BEAKER) (test 104 meq/L 98-107 wusc=356) CO2 (BEAKER) (test 27 meq/L 22-29 tcrm=683) BLOOD UREA NITROGEN 18 mg/dL 7-21 (BEAKER) (test carw=937) CREATININE (BEAKER) (test 1.57 mg/dL 0.57-1.25 gbzm=492) GLUCOSE RANDOM (BEAKER) 235 mg/dL 70-105 (test sccj=883) CALCIUM (BEAKER) (test 7.8 mg/dL 8.4-10.2 yghs=907) EGFR (BEAKER) (test 33 mL/min/1.73 sq m ESTIMATED GFR IS NOT dzdq=6141) ACCURATE CREATININE CLEARANCE IN PREDICTING GLOMERULAR FILTRATION RATE. ESTIMATED GFR IS NOT APPLICABLE FOR DIALYSIS PATIENTS. Specimen slightly [id number] 08:14:00 Test Item Value Reference Range Comments PHOSPHORUS (BEAKER) (test sbbs=515) 2.4 mg/dL 2.3-4.7 [id number] 08:14:00 Test Item Value Reference Range Comments MAGNESIUM (BEAKER) (test wbau=644) 1.5 mg/dL 1.6-2.6 HEPATIC FUNCTION [id number] 08:14:00 Test Item Value Reference Range Comments TOTAL PROTEIN (BEAKER) (test euht=202) 5.1 gm/dL 6.0-8.3 ALBUMIN (BEAKER) (test fvuu=6522) 2.5 g/dL 3.5-5.0 BILIRUBIN TOTAL (BEAKER) (test rscl=365) 1.3 mg/dL 0.2-1.2 BILIRUBIN DIRECT (BEAKER) (test aipi=209) 0.7 mg/dL 0.1-0.5 ALKALINE PHOSPHATASE (BEAKER) (test lquu=809) 107 U/L 40-150 AST (SGOT) (BEAKER) (test jikm=649) 27 U/L 5-34 ALT (SGPT) (BEAKER) (test vsgl=908) 11 U/L 6-55 Specimen slightly ictericTSH/FREE T4 IF [id number] 07:00:00 Test Item Value Reference Range Comments THYROID STIMULATING HORMONE (BEAKER) (test 59.61 uIU/mL 0.35-4.94 jliy=887) PROTHROMBIN [id number] 05:56:00 Test Item Value Reference Range Comments PROTIME (BEAKER) (test pxri=809) 14.3 seconds 11.9-14.2 INR (BEAKER) (test yprs=183) 1.2 <=5.9 Effective 04/01/2019: PT Reference Range ChangeNew: 11.9-14.2 Previous: 11.7- 14.7RECOMMENDED COUMADIN/WARFARIN INR THERAPY RANGESSTANDARD DOSE: 2.0-3.0 Includes: PROPHYLAXIS for venous thrombosis, systemic embolization; TREATMENT for venous thrombosis and/or pulmonary embolus.HIGH RISK: Target INR is2.5-3.5 for patients wiht mechanical heart valves.CALCIUM, [id number] 05:43:00 Test Item Value Reference Range Comments CALCIUM IONIZED (BEAKER) (test nilo=008) 0.97 mmol/L 1.12-1.27 PH, BLOOD (BEAKER) (test aowa=9382) 7.45 CBC W/PLT COUNT & AUTO [id number] 05:21:00 Test Item Value Reference Range Comments WHITE BLOOD CELL COUNT (BEAKER) (test rdmr=660) 5.5 K/ L 3.5-10.5 RED BLOOD CELL COUNT (BEAKER) (test xxpf=693) 3.06 M/ L 3.93-5.22 HEMOGLOBIN (BEAKER) (test owob=009) 8.3 GM/DL 11.2-15.7 HEMATOCRIT (BEAKER) (test yppg=846) 26.3 % 34.1-44.9 MEAN CORPUSCULAR VOLUME (BEAKER) (test lptp=507) 85.9 fL 79.4-94.8 MEAN CORPUSCULAR HEMOGLOBIN (BEAKER) (test 27.1 pg 25.6-32.2 ecth=338) MEAN CORPUSCULAR HEMOGLOBIN CONC (BEAKER) (test 31.6 GM/DL 32.2-35.5 faax=565) RED CELL DISTRIBUTION WIDTH (BEAKER) (test 17.2 % 11.7-14.4 anqz=238) PLATELET COUNT (BEAKER) (test ukuk=450) 154 K/CU MM 150-450 MEAN PLATELET VOLUME (BEAKER) (test crsr=867) 8.9 fL 9.4-12.3 NUCLEATED RED BLOOD CELLS (BEAKER) (test 0 /100 WBC 0-0 lbul=875) NEUTROPHILS RELATIVE PERCENT (BEAKER) (test 61 % fype=771) LYMPHOCYTES RELATIVE PERCENT (BEAKER) (test 21 % hhrn=924) MONOCYTES RELATIVE PERCENT (BEAKER) (test 10 % zufy=165) EOSINOPHILS RELATIVE PERCENT (BEAKER) (test 8 % uiji=464) BASOPHILS RELATIVE PERCENT (BEAKER) (test 1 % oplt=479) NEUTROPHILS ABSOLUTE COUNT (BEAKER) (test 3.33 K/ L 1.56-6.13 wwfp=478) LYMPHOCYTES ABSOLUTE COUNT (BEAKER) (test 1.13 K/ L 1.18-3.74 bjln=469) MONOCYTES ABSOLUTE COUNT (BEAKER) (test 0.55 K/ L 0.24-0.36 vzjd=219) EOSINOPHILS ABSOLUTE COUNT (BEAKER) (test 0.42 K/ L 0.04-0.36 tquy=826) BASOPHILS ABSOLUTE COUNT (BEAKER) (test 0.06 K/ L 0.01-0.08 xkpk=202) IMMATURE GRANULOCYTES-RELATIVE PERCENT (BEAKER) 0 % 0-1 (test zwtl=5242) POCT-GLUCOSE [id number] 21:18:00 Test Item Value Reference Range Comments POC-GLUCOSE METER (BEAKER) 258 mg/dL 70-110 TESTED AT [address] (test rzoi=1930) [facility] [address] POCT-GLUCOSE [id number] 17:42:00 Test Item Value Reference Range Comments POC-GLUCOSE METER (BEAKER) 232 mg/dL 70-110 TESTED AT [address] (test jdwc=4910) [facility] [address] POCT-GLUCOSE [id number] 12:51:00 Test Item Value Reference Range Comments POC-GLUCOSE METER (BEAKER) 206 mg/dL 70-[address] [facility] [address] [facility] (test xysn=6680) [facility] [address] POCT-GLUCOSE [id number] 07:53:00 Test Item Value Reference Range Comments POC-GLUCOSE METER (BEAKER) 219 mg/dL 70-[address] [facility] [address] [facility] (test feeg=8784) [facility] [address] COMPREHENSIVE METABOLIC [id number] 06:52:00 Test Item Value Reference Range Comments TOTAL PROTEIN (BEAKER) 4.9 gm/dL 6.0-8.3 (test ukrh=493) ALBUMIN (BEAKER) (test 2.3 g/dL 3.5-5.0 ndtf=4404) ALKALINE PHOSPHATASE 119 U/L 40-150 (BEAKER) (test wlem=206) BILIRUBIN TOTAL (BEAKER) 1.1 mg/dL 0.2-1.2 (test spei=652) SODIUM (BEAKER) (test 135 meq/L 136-145 tceb=006) POTASSIUM (BEAKER) (test 4.0 meq/L 3.5-5.1 bnsm=803) CHLORIDE (BEAKER) (test 105 meq/L 98-107 yfbi=864) CO2 (BEAKER) (test 26 meq/L 22-29 mpag=447) BLOOD UREA NITROGEN 18 mg/dL 7-21 (BEAKER) (test suiv=725) CREATININE (BEAKER) (test 1.38 mg/dL 0.57-1.25 jzhy=843) GLUCOSE RANDOM (BEAKER) 234 mg/dL 70-105 (test ztbp=057) CALCIUM (BEAKER) (test 7.8 mg/dL 8.4-10.2 yaaw=140) AST (SGOT) (BEAKER) (test 29 U/L 5-34 tanv=542) ALT (SGPT) (BEAKER) (test 13 U/L 6-55 cuuh=044) EGFR (BEAKER) (test 39 mL/min/1.73 sq m ESTIMATED GFR IS NOT aclc=7378) ACCURATE CREATININE CLEARANCE IN PREDICTING GLOMERULAR FILTRATION RATE. ESTIMATED GFR IS NOT APPLICABLE FOR DIALYSIS PATIENTS. [id number] 06:47:00 Test Item Value Reference Range Comments PHOSPHORUS (BEAKER) (test gkbn=216) 2.0 mg/dL 2.3-4.7 [id number] 06:47:00 Test Item Value Reference Range Comments MAGNESIUM (BEAKER) (test upcm=404) 1.7 mg/dL 1.6-2.6 HEPATIC FUNCTION [id number] 06:47:00 Test Item Value Reference Range Comments TOTAL PROTEIN (BEAKER) (test xprt=462) 4.9 gm/dL 6.0-8.3 ALBUMIN (BEAKER) (test bfvb=9303) 2.3 g/dL 3.5-5.0 BILIRUBIN TOTAL (BEAKER) (test vkdw=784) 1.1 mg/dL 0.2-1.2 BILIRUBIN DIRECT (BEAKER) (test floq=645) 0.6 mg/dL 0.1-0.5 ALKALINE PHOSPHATASE (BEAKER) (test ehhc=915) 119 U/L 40-150 AST (SGOT) (BEAKER) (test ekcy=663) 29 U/L 5-34 ALT (SGPT) (BEAKER) (test dipg=013) 13 U/L 6-55 CBC W/PLT COUNT & AUTO [id number] 06:32:00 Test Item Value Reference Range Comments WHITE BLOOD CELL COUNT (BEAKER) (test unhg=474) 5.3 K/ L 3.5-10.5 RED BLOOD CELL COUNT (BEAKER) (test zwyr=743) 3.05 M/ L 3.93-5.22 HEMOGLOBIN (BEAKER) (test fiph=895) 8.3 GM/DL 11.2-15.7 HEMATOCRIT (BEAKER) (test nplk=344) 26.7 % 34.1-44.9 MEAN CORPUSCULAR VOLUME (BEAKER) (test xrdy=687) 87.5 fL 79.4-94.8 MEAN CORPUSCULAR HEMOGLOBIN (BEAKER) (test 27.2 pg 25.6-32.2 wlue=821) MEAN CORPUSCULAR HEMOGLOBIN CONC (BEAKER) (test 31.1 GM/DL 32.2-35.5 zxhd=270) RED CELL DISTRIBUTION WIDTH (BEAKER) (test 17.4 % 11.7-14.4 otny=840) PLATELET COUNT (BEAKER) (test cybb=101) 161 K/CU MM 150-450 MEAN PLATELET VOLUME (BEAKER) (test ndya=870) 8.8 fL 9.4-12.3 NUCLEATED RED BLOOD CELLS (BEAKER) (test 0 /100 WBC 0-0 nsho=163) NEUTROPHILS RELATIVE PERCENT (BEAKER) (test 52 % rwth=353) LYMPHOCYTES RELATIVE PERCENT (BEAKER) (test 27 % cixz=357) MONOCYTES RELATIVE PERCENT (BEAKER) (test 9 % onlc=912) EOSINOPHILS RELATIVE PERCENT (BEAKER) (test 10 % vphi=219) BASOPHILS RELATIVE PERCENT (BEAKER) (test 2 % ysga=693) NEUTROPHILS ABSOLUTE COUNT (BEAKER) (test 2.75 K/ L 1.56-6.13 njaj=762) LYMPHOCYTES ABSOLUTE COUNT (BEAKER) (test 1.42 K/ L 1.18-3.74 xthb=891) MONOCYTES ABSOLUTE COUNT (BEAKER) (test 0.48 K/ L 0.24-0.36 rpgq=034) EOSINOPHILS ABSOLUTE COUNT (BEAKER) (test 0.54 K/ L 0.04-0.36 laeu=121) BASOPHILS ABSOLUTE COUNT (BEAKER) (test 0.08 K/ L 0.01-0.08 krew=877) IMMATURE GRANULOCYTES-RELATIVE PERCENT (BEAKER) 0 % 0-1 (test zvzn=7143) B-TYPE NATRIURETIC FACTOR (BNP)2019-05-20 06:27:00 Test Item Value Reference Range Comments B-TYPE NATRIURETIC PEPTIDE (BEAKER) (test 274 pg/mL 0-100 povw=242) VANCOMYCIN LEVEL, [id number] 06:16:00 Test Item Value Reference Range Comments VANCOMYCIN TROUGH (BEAKER) (test rmdo=541) 5.8 ug/mL 10.0-20.0 [id number] 06:11:00 Test Item Value Reference Range Comments D-DIMER QUANTITATIVE (BEAKER) (test dbpe=125) 3.95 MG/L FEU <0.50 Intended Use: The [...] exclusion of thrombosis is within 95-100% range.CALCIUM, [id number] 06:04:00 Test Item Value Reference Range Comments CALCIUM IONIZED (NISHANTAKER) (test ssgf=105) 1.06 mmol/L 1.12-1.27 PH, BLOOD (BEAKER) (test pdap=1523) 7.43 PROTHROMBIN [id number] 06:02:00 Test Item Value Reference Range Comments PROTIME (BEAKER) (test gdwi=381) 13.8 seconds 11.9-14.2 INR (BEAKER) (test ujxi=576) 1.1 <=5.9 Effective 04/01/2019: PT Reference Range ChangeNew: 11.9-14.2 Previous: 11.7- 14.7RECOMMENDED COUMADIN/WARFARIN INR THERAPY RANGESSTANDARD DOSE: 2.0-3.0 Includes: PROPHYLAXIS for venous thrombosis, systemic embolization; TREATMENT for venous thrombosis and/or pulmonary embolus.HIGH RISK: Target INR is2.5-3.5 for patients wiht mechanical heart valves.TROPONIN [id number] 02:44:00 Test Item Value Reference Range Comments TROPONIN I (NISHANTAKER) (test jzia=822) 0.01 ng/mL 0.00-0.03 Troponin I (TnI) levels [...] acute neurological disease, and persistent tachyarrhythmia.PROTEIN, RANDOM [id number] 01:50:00 Test Item Value Reference Range Comments PROTEIN, URINE (BEAKER) (test fbyl=4532) 20 mg/dL 0-14 CREATININE, RANDOM [id number] 01:49:00 Test Item Value Reference Range Comments CREATININE URINE (DAKOTAH) (test ehtc=513) 184.6 mg/dL Reference Range: No NormalsRAD, CHEST, 1 VIEW, NON [id number] 01:49: 00Reason for exam:->anasarcaShould this be performed [...] of an acute osseous abnormality or pneumothorax.Signed: Humphrey Mahereport Verified Date/Time: 05/20/2019 01:49 :05 Reading Location: [address] Reading Room POCT-GLUCOSE [id number] 00:36:00 Test Item Value Reference Range Comments POC-GLUCOSE METER (BEAKER) 326 mg/dL 70-[address] [facility] [address] [facility] (test bdsu=7656) [facility] [address] URINALYSIS W/ [id number] 00:02:00 Test Item Value Reference Range Comments COLOR (BEAKER) (test yxin=786) Yellow CLARITY (BEAKER) (test vqzs=281) Clear SPECIFIC GRAVITY UA (BEAKER) (test bibk=348) 1.020 1.001-1.035 PH UA (BEAKER) (test yetu=843) 5.5 5.0-8.0 PROTEIN UA (BEAKER) (test mlqw=581) 20 mg/dL Negative GLUCOSE UA (BEAKER) (test exhc=965) 300 mg/dL Negative KETONES UA (BEAKER) (test pbhx=372) Negative Negative BILIRUBIN UA (BEAKER) (test gzcb=075) Negative Negative BLOOD UA (BEAKER) (test csmh=089) Negative Negative NITRITE UA (BEAKER) (test sbrz=838) Negative Negative LEUKOCYTE ESTERASE UA (BEAKER) (test rtpq=552) Small Negative UROBILINOGEN UA (BEAKER) (test ssvz=660) 2.0 mg/dL 0.2-1.0 RBC UA (BEAKER) (test unra=364) 2 /HPF WBC UA (BEAKER) (test aujm=901) 2 /HPF MUCUS (BEAKER) (test bqyv=6208) Rare SQUAMOUS EPITHELIAL (BEAKER) (test oxyh=918) 6 /HPF HYALINE CASTS (BEAKER) (test icvg=203) 5 /LPF SOURCE(BEAKER) (test ujuw=0585) Urine, Voided T4, [id number] 22:29:00 Test Item Value Reference Range Comments FREE T4 (BEAKER) (test myjg=059) 0.44 ng/dL 0.70-1.48 HEMOGLOBIN [id number] 22:15:00 Test Item Value Reference Range Comments HEMOGLOBIN A1C (BEAKER) (test yily=811) 8.6 % 4.3-6.1 TSH/FREE T4 IF [id number] 21:43:00 Test Item Value Reference Range Comments THYROID STIMULATING HORMONE (BEAKER) (test 72.01 uIU/mL 0.35-4.94 uwiv=664) B-TYPE NATRIURETIC FACTOR (BNP)2019-05-19 21:29:00 Test Item Value Reference Range Comments B-TYPE NATRIURETIC PEPTIDE (BEAKER) (test 222 pg/mL 0-100 jreq=677) PROTHROMBIN [id number] 21:26:00 Test Item Value Reference Range Comments PROTIME (BEAKER) (test atsg=475) 13.6 seconds 11.9-14.2 INR (BEAKER) (test ulli=612) 1.1 <=5.9 Effective 04/01/2019: PT Reference Range ChangeNew: 11.9-14.2 Previous: 11.7- 14.7RECOMMENDED COUMADIN/WARFARIN INR THERAPY RANGESSTANDARD DOSE: 2.0-3.0 Includes: PROPHYLAXIS for venous thrombosis, systemic embolization; TREATMENT for venous thrombosis and/or pulmonary embolus.HIGH RISK: Target INR is2.5-3.5 for patients wiht mechanical heart valves.TROPONIN [id number] 21:26:00 Test Item Value Reference Range Comments TROPONIN I (BEAKER) (test bfmt=285) < ng/mL 0.00-0.03 Troponin I (TnI) levels [...] failure, acidosis, acute neurological disease, and persistent tachyarrhythmia.[id number] 21:18:00 Test Item Value Reference Range Comments MAGNESIUM (BEAKER) (test 1.8 mg/dL 1.6-2.6 Specimen markedly hemolyzed wmin=445) [id number] 21:18:00 Test Item Value Reference Range Comments PHOSPHORUS (BEAKER) (test 2.1 mg/dL 2.3-4.7 Specimen markedly hemolyzed wfjd=344) BASIC METABOLIC [id number] 21:18:00 Test Item Value Reference Range Comments SODIUM (BEAKER) (test 136 meq/L 136-145 eidy=299) POTASSIUM (BEAKER) (test 4.8 meq/L 3.5-5.1 Specimen markedly msvm=571) hemolyzed CHLORIDE (BEAKER) (test 103 meq/L 98-107 fahz=519) CO2 (BEAKER) (test 29 meq/L 22-29 vacr=905) BLOOD UREA NITROGEN 17 mg/dL 7-21 (BEAKER) (test yogq=613) CREATININE (BEAKER) (test 1.33 mg/dL 0.57-1.25 Specimen markedly oxve=484) hemolyzed GLUCOSE RANDOM (BEAKER) 248 mg/dL 70-105 (test zcju=099) CALCIUM (BEAKER) (test 8.1 mg/dL 8.4-10.2 bfgr=021) EGFR (BEAKER) (test 41 mL/min/1.73 sq m ESTIMATED GFR IS NOT qyih=8638) ACCURATE CREATININE CLEARANCE IN PREDICTING GLOMERULAR FILTRATION RATE. ESTIMATED GFR IS NOT APPLICABLE FOR DIALYSIS PATIENTS. HEPATIC FUNCTION [id number] 21:18:00 Test Item Value Reference Range Comments TOTAL PROTEIN (BEAKER) (test 6.4 gm/dL 6.0-8.3 Specimen markedly hemolyzed jllw=810) ALBUMIN (BEAKER) (test 2.5 g/dL 3.5-5.0 Specimen markedly hemolyzed fqor=8646) BILIRUBIN TOTAL (BEAKER) (test 1.3 mg/dL 0.2-1.2 Specimen markedly hemolyzed qaui=955) BILIRUBIN DIRECT (BEAKER) (test 0.3 mg/dL 0.1-0.5 Specimen markedly hemolyzed rskd=340) ALKALINE PHOSPHATASE (BEAKER) 143 U/L 40-150 (test ssgt=393) AST (SGOT) (BEAKER) (test 61 U/L 5-34 Specimen markedly hemolyzed suuw=583) ALT (SGPT) (BEAKER) (test 15 U/L 6-55 Specimen markedly hemolyzed jdwi=833) CBC W/PLT COUNT & AUTO [id number] 20:58:00 Test Item Value Reference Range Comments WHITE BLOOD CELL COUNT (BEAKER) (test rbxl=396) 6.0 K/ L 3.5-10.5 RED BLOOD CELL COUNT (BEAKER) (test kusn=551) 3.57 M/ L 3.93-5.22 HEMOGLOBIN (BEAKER) (test foqc=966) 9.8 GM/DL 11.2-15.7 HEMATOCRIT (BEAKER) (test sclm=739) 30.6 % 34.1-44.9 MEAN CORPUSCULAR VOLUME (BEAKER) (test tzqa=002) 85.7 fL 79.4-94.8 MEAN CORPUSCULAR HEMOGLOBIN (BEAKER) (test 27.5 pg 25.6-32.2 zlcm=065) MEAN CORPUSCULAR HEMOGLOBIN CONC (BEAKER) (test 32.0 GM/DL 32.2-35.5 ljrb=453) RED CELL DISTRIBUTION WIDTH (BEAKER) (test 17.4 % 11.7-14.4 qwpg=159) PLATELET COUNT (BEAKER) (test nref=031) 199 K/CU MM 150-450 MEAN PLATELET VOLUME (BEAKER) (test jhli=139) 9.1 fL 9.4-12.3 NUCLEATED RED BLOOD CELLS (BEAKER) (test 0 /100 WBC 0-0 veap=460) NEUTROPHILS RELATIVE PERCENT (BEAKER) (test 53 % apbk=291) LYMPHOCYTES RELATIVE PERCENT (BEAKER) (test 27 % mrxy=218) MONOCYTES RELATIVE PERCENT (BEAKER) (test 8 % xoju=496) EOSINOPHILS RELATIVE PERCENT (BEAKER) (test 10 % eysy=012) BASOPHILS RELATIVE PERCENT (BEAKER) (test 1 % fcel=262) NEUTROPHILS ABSOLUTE COUNT (BEAKER) (test 3.21 K/ L 1.56-6.13 lcug=244) LYMPHOCYTES ABSOLUTE COUNT (BEAKER) (test 1.62 K/ L 1.18-3.74 czfk=630) MONOCYTES ABSOLUTE COUNT (BEAKER) (test 0.50 K/ L 0.24-0.36 bcmr=918) EOSINOPHILS ABSOLUTE COUNT (BEAKER) (test 0.62 K/ L 0.04-0.36 twej=656) BASOPHILS ABSOLUTE COUNT (BEAKER) (test 0.08 K/ L 0.01-0.08 srku=659) IMMATURE GRANULOCYTES-RELATIVE PERCENT (BEAKER) 0 % 0-1 (test byyg=8237) BODY FLUID CULTURE + GRAM [id number] 13:44:00 Test Item Value Reference Range Comments CULTURE (BEAKER) (test iliu=0715) No growth GRAM STAIN RESULT (BEAKER) (test <1+ White blood cells seen mbgh=2607) GRAM STAIN RESULT (BEAKER) (test No organisms seen ahtn=02814) BODY FLUID CULTURE + GRAM [id number] 14:06:00 Test Item Value Reference Range Comments CULTURE (BEAKER) (test fdwh=9964) No growth GRAM STAIN RESULT (BEAKER) (test No White blood cells seen tktw=8468) GRAM STAIN RESULT (BEAKER) (test No organisms seen fbyk=15232) BASIC METABOLIC [id number] 08:41:00 Test Item Value Reference Range Comments SODIUM (BEAKER) (test 132 meq/L 136-145 qybh=411) POTASSIUM (BEAKER) (test 4.4 meq/L 3.5-5.1 roux=344) CHLORIDE (BEAKER) (test 100 meq/L 98-107 matj=532) CO2 (BEAKER) (test 25 meq/L 22-29 kagw=426) BLOOD UREA NITROGEN 53 mg/dL 7-21 (BEAKER) (test ysre=907) CREATININE (BEAKER) (test 1.80 mg/dL 0.57-1.25 empd=293) GLUCOSE RANDOM (BEAKER) 211 mg/dL 70-105 (test pytj=670) CALCIUM (BEAKER) (test 9.0 mg/dL 8.4-10.2 rzdu=744) EGFR (BEAKER) (test 29 mL/min/1.73 sq m ESTIMATED GFR IS NOT licu=4746) ACCURATE CREATININE CLEARANCE IN PREDICTING GLOMERULAR FILTRATION RATE. ESTIMATED GFR IS NOT APPLICABLE FOR DIALYSIS PATIENTS. POCT-GLUCOSE [id number] 08:16:00 Test Item Value Reference Range Comments POC-GLUCOSE METER (BEAKER) 213 mg/dL 70-[address] [facility] [address] (test lixe=9783) [facility] [address] HEPATIC FUNCTION [id number] 06:43:00 Test Item Value Reference Range Comments TOTAL PROTEIN (BEAKER) (test ajkn=123) 5.7 gm/dL 6.0-8.3 ALBUMIN (BEAKER) (test wuzn=3932) 4.2 g/dL 3.5-5.0 BILIRUBIN TOTAL (BEAKER) (test kxyt=582) 1.6 mg/dL 0.2-1.2 BILIRUBIN DIRECT (BEAKER) (test dirt=248) 0.8 mg/dL 0.1-0.5 ALKALINE PHOSPHATASE (BEAKER) (test wnte=554) 95 U/L 40-150 AST (SGOT) (BEAKER) (test dydl=619) 71 U/L 5-34 ALT (SGPT) (BEAKER) (test mizk=245) 68 U/L 6-55 POCT-GLUCOSE [id number] 22:00:00 Test Item Value Reference Range Comments POC-GLUCOSE METER (BEAKER) 341 mg/dL 70-110 Notified ALEXI ENNIS/TESTED AT [facility] (test sczp=7775) [address] [facility] [address] BODY FLUID CELL COUNT WITH [id number] 20:00:00 Test Item Value Reference Range Comments APPEARANCE FLUID (BEAKER) (test xgdv=729) Hazy Clear COLOR FLUID (BEAKER) (test enuq=819) Straw Colorless, Straw RBC FLUID (BEAKER) (test uecg=312) 4000 /cu mm <=1 ADJUSTED WBC FLUID (BEAKER) (test kqrw=0646) 140 /cu mm <=5 LINING CELLS (BEAKER) (test ybbb=7870) 1 /cu mm <=1 NEUTROPHILS FLUID (BEAKER) (test dmhi=7342) 1 % LYMPHS FLUID (BEAKER) (test qysl=875) 30 % MONO/MACROPHAGE FLUID (BEAKER) (test nizg=827) 69 % EOSINOPHILS FLUID (BEAKER) (test cfpm=258) 0 % BASO FLUID (BEAKER) (test hvcp=741) 0 % CONTAINER BODY FLUID (BEAKER) (test dbos=1365) EDTA Tube U/S, [id number] 16:42:00Reason for exam:->ascites limited 6 litersFINAL REPORT PROCEDURE: Ultrasound-guided paracentesis. INDICATION: 59-year-old woman with ascites. DESCRIPTION: After obtaining informed written consent, ultrasound scan of the abdomen identified ascites in the right lower quadrant. The overlying skin was prepped and draped in the usual, sterile fashion and local 2% lidocaine anesthesia was administered. A 5 Eritrean catheter was advanced into the peritoneal cavity and 6000 cc of serous fluid was removed. The catheter was removed without immediate complication. Samples were sent for analysis. IMPRESSION:Uncomplicated ultrasound-guided paracentesis with 6000 cc fluid removed. Signed: Antwon Bose Verified Date/Time: 02/24/2019 16:42:07 Reading Location: [address] Ultrasound Reading Room POCT-GLUCOSE [id number] 13:07:00 Test Item Value Reference Range Comments POC-GLUCOSE METER (BEAKER) 290 mg/dL 70-110 TESTED AT [address] (test gbyn=9865) [facility] [address] PROTHROMBIN TIME/[id number] 12:01:00 Test Item Value Reference Range Comments PROTIME (BEAKER) (test qjpc=535) 14.3 seconds 11.7-14.7 INR (BEAKER) (test nlfn=860) 1.1 <=5.9 RECOMMENDED COUMADIN/WARFARIN INR THERAPY RANGESSTANDARD DOSE: 2.0 - 3.0 Includes: PROPHYLAXIS forvenous thrombosis, systemic embolization; TREATMENT for venous thrombosis and/or pulmonary embolus.HIGH RISK: Target INR is 2.5-3.5 for patients with mechanical heart valves.[id number] 12:01:00 Test Item Value Reference Range Comments PARTIAL THROMBOPLASTIN TIME (BEAKER) (test 32.5 seconds 22.5-36.0 brct=160) POCT-GLUCOSE [id number] 08:39:00 Test Item Value Reference Range Comments POC-GLUCOSE METER (BEAKER) 279 mg/dL 70-110 TESTED AT [address] (test moiv=7778) [facility] [address] CALCIUM, [id number] 07:04:00 Test Item Value Reference Range Comments CALCIUM IONIZED (BEAKER) (test mlsr=643) 1.08 mmol/L 1.12-1.27 PH, BLOOD (BEAKER) (test yoqh=0500) 7.38 COMPREHENSIVE METABOLIC [id number] 05:59:00 Test Item Value Reference Range Comments TOTAL PROTEIN (BEAKER) 5.5 gm/dL 6.0-8.3 (test yrex=771) ALBUMIN (BEAKER) (test 3.8 g/dL 3.5-5.0 fkiq=4144) ALKALINE PHOSPHATASE 125 U/L 40-150 (BEAKER) (test zkwl=832) BILIRUBIN TOTAL (BEAKER) 0.9 mg/dL 0.2-1.2 (test fqvo=763) SODIUM (BEAKER) (test 130 meq/L 136-145 ihjm=256) POTASSIUM (BEAKER) (test 4.0 meq/L 3.5-5.1 efqf=915) CHLORIDE (BEAKER) (test 99 meq/L 98-107 dyej=171) CO2 (BEAKER) (test 23 meq/L 22-29 tmmc=491) BLOOD UREA NITROGEN 51 mg/dL 7-21 (BEAKER) (test hlre=047) CREATININE (BEAKER) (test 2.07 mg/dL 0.57-1.25 khad=612) GLUCOSE RANDOM (BEAKER) 320 mg/dL 70-105 (test gjsi=892) CALCIUM (BEAKER) (test 8.7 mg/dL 8.4-10.2 akmh=602) AST (SGOT) (BEAKER) (test 111 U/L 5-34 dvub=176) ALT (SGPT) (BEAKER) (test 98 U/L 6-55 yvbi=675) EGFR (BEAKER) (test 24 mL/min/1.73 sq m ESTIMATED GFR IS NOT xfeg=7750) ACCURATE CREATININE CLEARANCE IN PREDICTING GLOMERULAR FILTRATION RATE. ESTIMATED GFR IS NOT APPLICABLE FOR DIALYSIS PATIENTS. [id number] 05:58:00 Test Item Value Reference Range Comments PHOSPHORUS (BEAKER) (test uwzm=401) 2.1 mg/dL 2.3-4.7 [id number] 05:58:00 Test Item Value Reference Range Comments MAGNESIUM (BEAKER) (test rcey=139) 2.3 mg/dL 1.6-2.6 HEPATIC FUNCTION [id number] 05:58:00 Test Item Value Reference Range Comments TOTAL PROTEIN (BEAKER) (test sucs=425) 5.5 gm/dL 6.0-8.3 ALBUMIN (BEAKER) (test lfgq=9044) 3.8 g/dL 3.5-5.0 BILIRUBIN TOTAL (BEAKER) (test rbhn=951) 0.9 mg/dL 0.2-1.2 BILIRUBIN DIRECT (BEAKER) (test nvgj=497) 0.4 mg/dL 0.1-0.5 ALKALINE PHOSPHATASE (BEAKER) (test tibt=817) 125 U/L 40-150 AST (SGOT) (BEAKER) (test shsn=458) 111 U/L 5-34 ALT (SGPT) (BEAKER) (test zjmx=997) 98 U/L 6-55 CBC W/PLT COUNT & AUTO [id number] 05:29:00 Test Item Value Reference Range Comments WHITE BLOOD CELL COUNT (BEAKER) (test dmet=008) 5.9 K/ L 3.5-10.5 RED BLOOD CELL COUNT (BEAKER) (test yhjq=050) 3.00 M/ L 3.93-5.22 HEMOGLOBIN (BEAKER) (test lwcb=668) 8.5 GM/DL 11.2-15.7 HEMATOCRIT (BEAKER) (test ymid=913) 25.3 % 34.1-44.9 MEAN CORPUSCULAR VOLUME (BEAKER) (test fzgi=143) 84.3 fL 79.4-94.8 MEAN CORPUSCULAR HEMOGLOBIN (BEAKER) (test 28.3 pg 25.6-32.2 fyyh=830) MEAN CORPUSCULAR HEMOGLOBIN CONC (BEAKER) (test 33.6 GM/DL 32.2-35.5 ifgc=866) RED CELL DISTRIBUTION WIDTH (BEAKER) (test 14.8 % 11.7-14.4 xmfr=178) PLATELET COUNT (BEAKER) (test rvkb=210) 146 K/CU MM 150-450 MEAN PLATELET VOLUME (BEAKER) (test cjuv=065) 10.1 fL 9.4-12.3 NUCLEATED RED BLOOD CELLS (BEAKER) (test 0 /100 WBC 0-0 ylug=121) NEUTROPHILS RELATIVE PERCENT (BEAKER) (test 67 % wquz=185) LYMPHOCYTES RELATIVE PERCENT (BEAKER) (test 16 % uulu=720) MONOCYTES RELATIVE PERCENT (BEAKER) (test 10 % ykhx=226) EOSINOPHILS RELATIVE PERCENT (BEAKER) (test 6 % bhvw=935) BASOPHILS RELATIVE PERCENT (BEAKER) (test 1 % pczf=611) NEUTROPHILS ABSOLUTE COUNT (BEAKER) (test 3.94 K/ L 1.56-6.13 jmli=810) LYMPHOCYTES ABSOLUTE COUNT (BEAKER) (test 0.96 K/ L 1.18-3.74 jarf=222) MONOCYTES ABSOLUTE COUNT (BEAKER) (test 0.57 K/ L 0.24-0.36 unni=604) EOSINOPHILS ABSOLUTE COUNT (BEAKER) (test 0.37 K/ L 0.04-0.36 zxae=238) BASOPHILS ABSOLUTE COUNT (BEAKER) (test 0.03 K/ L 0.01-0.08 pwzb=591) IMMATURE GRANULOCYTES-RELATIVE PERCENT (BEAKER) 0 % 0-1 (test uhcn=0204) POCT-GLUCOSE [id number] 21:01:00 Test Item Value Reference Range Comments POC-GLUCOSE METER (BEAKER) 371 mg/dL 70-110 Notified ALEXI ENNIS/TESTED AT [facility] (test fkmh=5140) [address] [place] [address] POCT-GLUCOSE [id number] 17:30:00 Test Item Value Reference Range Comments POC-GLUCOSE METER (BEAKER) 389 mg/dL 70-110 TESTED AT [address] (test szrh=2644) [facility] [address] POCT-GLUCOSE [id number] 08:50:00 Test Item Value Reference Range Comments POC-GLUCOSE METER (BEAKER) 303 mg/dL 70-110 TESTED AT [address] (test swiy=2019) [facility] [address] POCT-GLUCOSE [id number] 08:27:00 Test Item Value Reference Range Comments POC-GLUCOSE METER (BEAKER) 342 mg/dL 70-110 Will Repeat Test/TESTED AT (test qpre=2072) [address] [address] CALCIUM, [id number] 07:20:00 Test Item Value Reference Range Comments CALCIUM IONIZED (BEAKER) (test mdxp=863) 0.98 mmol/L 1.12-1.27 PH, BLOOD (BEAKER) (test uzgm=5701) 7.41 COMPREHENSIVE METABOLIC [id number] 07:05:00 Test Item Value Reference Range Comments TOTAL PROTEIN (BEAKER) 5.0 gm/dL 6.0-8.3 (test elug=812) ALBUMIN (BEAKER) (test 3.3 g/dL 3.5-5.0 tofh=0639) ALKALINE PHOSPHATASE 126 U/L 40-150 (BEAKER) (test hvrr=550) BILIRUBIN TOTAL (BEAKER) 1.2 mg/dL 0.2-1.2 (test bjwv=203) SODIUM (BEAKER) (test 128 meq/L 136-145 obuo=815) POTASSIUM (BEAKER) (test 4.1 meq/L 3.5-5.1 tlym=206) CHLORIDE (BEAKER) (test 98 meq/L 98-107 gdnx=743) CO2 (BEAKER) (test 20 meq/L 22-29 pzpj=162) BLOOD UREA NITROGEN 43 mg/dL 7-21 (BEAKER) (test ibhj=242) CREATININE (BEAKER) (test 2.39 mg/dL 0.57-1.25 ejqu=916) GLUCOSE RANDOM (BEAKER) 305 mg/dL 70-105 (test iebg=521) CALCIUM (BEAKER) (test 8.1 mg/dL 8.4-10.2 hqpq=858) AST (SGOT) (BEAKER) (test 173 U/L 5-34 dvth=853) ALT (SGPT) (BEAKER) (test 143 U/L 6-55 ypnr=646) EGFR (BEAKER) (test 21 mL/min/1.73 sq m ESTIMATED GFR IS NOT uclm=7823) ACCURATE CREATININE CLEARANCE IN PREDICTING GLOMERULAR FILTRATION RATE. ESTIMATED GFR IS NOT APPLICABLE FOR DIALYSIS PATIENTS. [id number] 06:56:00 Test Item Value Reference Range Comments PHOSPHORUS (BEAKER) (test lree=686) 2.5 mg/dL 2.3-4.7 [id number] 06:56:00 Test Item Value Reference Range Comments MAGNESIUM (BEAKER) (test axcm=209) 1.9 mg/dL 1.6-2.6 HEPATIC FUNCTION [id number] 06:56:00 Test Item Value Reference Range Comments TOTAL PROTEIN (BEAKER) (test move=128) 5.0 gm/dL 6.0-8.3 ALBUMIN (BEAKER) (test frud=1572) 3.3 g/dL 3.5-5.0 BILIRUBIN TOTAL (BEAKER) (test xmtj=773) 1.2 mg/dL 0.2-1.2 BILIRUBIN DIRECT (BEAKER) (test ryoa=403) 0.6 mg/dL 0.1-0.5 ALKALINE PHOSPHATASE (BEAKER) (test pumh=257) 126 U/L 40-150 AST (SGOT) (BEAKER) (test vydv=497) 173 U/L 5-34 ALT (SGPT) (BEAKER) (test otoo=204) 143 U/L 6-55 CBC W/PLT COUNT & AUTO [id number] 06:17:00 Test Item Value Reference Range Comments WHITE BLOOD CELL COUNT (BEAKER) (test jook=334) 5.7 K/ L 3.5-10.5 RED BLOOD CELL COUNT (BEAKER) (test omoc=131) 3.40 M/ L 3.93-5.22 HEMOGLOBIN (BEAKER) (test ywwe=574) 9.2 GM/DL 11.2-15.7 HEMATOCRIT (BEAKER) (test yije=620) 29.1 % 34.1-44.9 MEAN CORPUSCULAR VOLUME (BEAKER) (test qsbk=983) 85.6 fL 79.4-94.8 MEAN CORPUSCULAR HEMOGLOBIN (BEAKER) (test 27.1 pg 25.6-32.2 xkvo=190) MEAN CORPUSCULAR HEMOGLOBIN CONC (BEAKER) (test 31.6 GM/DL 32.2-35.5 debj=131) RED CELL DISTRIBUTION WIDTH (BEAKER) (test 14.7 % 11.7-14.4 xivy=164) PLATELET COUNT (BEAKER) (test zepf=278) 128 K/CU MM 150-450 MEAN PLATELET VOLUME (BEAKER) (test kqhx=231) 10.3 fL 9.4-12.3 NUCLEATED RED BLOOD CELLS (BEAKER) (test 0 /100 WBC 0-0 djhi=463) NEUTROPHILS RELATIVE PERCENT (BEAKER) (test 69 % byuo=612) LYMPHOCYTES RELATIVE PERCENT (BEAKER) (test 15 % cpxf=880) MONOCYTES RELATIVE PERCENT (BEAKER) (test 9 % urgn=360) EOSINOPHILS RELATIVE PERCENT (BEAKER) (test 6 % xzdc=125) BASOPHILS RELATIVE PERCENT (BEAKER) (test 1 % wfus=635) NEUTROPHILS ABSOLUTE COUNT (BEAKER) (test 3.91 K/ L 1.56-6.13 hngq=670) LYMPHOCYTES ABSOLUTE COUNT (BEAKER) (test 0.86 K/ L 1.18-3.74 uejm=172) MONOCYTES ABSOLUTE COUNT (BEAKER) (test 0.51 K/ L 0.24-0.36 cium=523) EOSINOPHILS ABSOLUTE COUNT (BEAKER) (test 0.35 K/ L 0.04-0.36 grbh=632) BASOPHILS ABSOLUTE COUNT (BEAKER) (test 0.03 K/ L 0.01-0.08 bxjv=951) IMMATURE GRANULOCYTES-RELATIVE PERCENT (BEAKER) 0 % 0-1 (test wecg=6150) BODY FLUID CELL COUNT WITH [id number] 17:06:00 Test Item Value Reference Range Comments APPEARANCE FLUID (BEAKER) (test zjeb=929) Hazy Clear COLOR FLUID (BEAKER) (test zsbi=346) Yellow Colorless, Straw RBC FLUID (BEAKER) (test coce=950) 6000 /cu mm <=1 ADJUSTED WBC FLUID (BEAKER) (test yxgg=3369) 125 /cu mm <=5 LINING CELLS (BEAKER) (test crxd=6798) 2 /cu mm <=1 NEUTROPHILS FLUID (BEAKER) (test wvgo=6856) 6 % LYMPHS FLUID (BEAKER) (test rchg=070) 21 % MONO/MACROPHAGE FLUID (BEAKER) (test kjok=622) 73 % EOSINOPHILS FLUID (BEAKER) (test izmf=895) 0 % BASO FLUID (BEAKER) (test xfjq=429) 0 % CONTAINER BODY FLUID (BEAKER) (test rsjm=2641) EDTA Tube POCT-GLUCOSE [id number] 16:40:00 Test Item Value Reference Range Comments POC-GLUCOSE METER (BEAKER) 396 mg/dL 70-[address] [facility] [address] (test itme=0964) [facility] [address] U/S, [id number] 16:12:00limit to 6 LReason for exam:->ascites, limit to 6 LFINAL REPORT Paracentesis dated 02/22/2019 Procedure: Ultrasound-guided paracentesis. Preprocedure diagnosis: Ascites Postprocedure diagnosis: Ascites Conscious sedation: None. Radiologist: Giovanni Haas M.D. Manufacturing Machine Operator: None Anesthesia: 1% Xylocaine mixed with sodium bicarbonate local anesthesia. Technique: After obtaining informed consent, ultrasound-guided paracentesis was performed under usual sterile technique. Using a 5 hungarian drainage catheter, puncture was made in the right lower quadrant abdomen. Approximately 6000 cc of serous fluid was removed. Patient tolerated the procedure well without complication. Complication: None Graft/ Implant: None Estimated Blood Loss: None Impression: Ultrasound-guided paracentesis. Signed: Giovanni Haas Verified Date/Time: 02/22/2019 16:12 :23 Reading Location: [address] Body Reading Room RAD, CHEST, 1 VIEW, NON [id number] 12:22:00Reason for exam:->coughShould this be performed at the bedside?->YesFINAL REPORT INDICATION: cough COMPARISON:None. TECHNIQUE: Chest radiograph, single view, portable technique. FINDINGS / IMPRESSION: No pneumonia is demonstrated. There is markedelevation of the right hemidiaphragm. Heart shadow is prominent which may be related to portable technique. No pneumothorax or pleural effusion is demonstrated. Osseous structures unremarkable. Signed:Elena Carrera Verified Date/ Time: 02/22/2019 12:22:24 Reading Location: [facility] [id number] Consult Reading Room POCT-GLUCOSE [id number] 07:55:00 Test Item Value Reference Range Comments POC-GLUCOSE METER (BEAKER) 317 mg/dL 70-[address] [facility] [address] [facility] (test nfvw=8968) [facility] [address] POCT-GLUCOSE [id number] 07:24:00 Test Item Value Reference Range Comments POC-GLUCOSE METER (BEAKER) 386 mg/dL 70-110 Notified ALEXI ENNIS/TESTED AT [facility] (test buoz=0344) [address] [facility] [address] POCT-GLUCOSE [id number] 07:24:00 Test Item Value Reference Range Comments POC-GLUCOSE METER (BEAKER) 295 mg/dL 70-[address] [facility] [address] [facility] (test howy=4212) [facility] [address] POCT-GLUCOSE [id number] 07:24:00 Test Item Value Reference Range Comments POC-GLUCOSE METER (BEAKER) 256 mg/dL 70-[address] [facility] [address] [facility] (test tzih=8181) [facility] [address] BASIC METABOLIC [id number] 06:50:00 Test Item Value Reference Range Comments SODIUM (BEAKER) (test 128 meq/L 136-145 ygqe=378) POTASSIUM (BEAKER) (test 4.0 meq/L 3.5-5.1 anus=683) CHLORIDE (BEAKER) (test 100 meq/L 98-107 hwta=649) CO2 (BEAKER) (test 21 meq/L 22-29 wqpm=779) BLOOD UREA NITROGEN 40 mg/dL 7-21 (BEAKER) (test raqa=812) CREATININE (BEAKER) (test 2.62 mg/dL 0.57-1.25 mved=843) GLUCOSE RANDOM (BEAKER) 351 mg/dL 70-105 (test gjfe=569) CALCIUM (BEAKER) (test 8.0 mg/dL 8.4-10.2 xwhe=704) EGFR (BEAKER) (test 19 mL/min/1.73 sq m ESTIMATED GFR IS NOT zmwh=7248) ACCURATE CREATININE CLEARANCE IN PREDICTING GLOMERULAR FILTRATION RATE. ESTIMATED GFR IS NOT APPLICABLE FOR DIALYSIS PATIENTS. [id number] 06:46:00 Test Item Value Reference Range Comments MAGNESIUM (BEAKER) (test ltov=517) 1.9 mg/dL 1.6-2.6 BLOOD [id number] 20:01:00 Test Item Value Reference Range Comments CULTURE (BEAKER) (test khyv=6947) No growth in 5 days BLOOD [id number] 20:01:00 Test Item Value Reference Range Comments CULTURE (BEAKER) (test heik=6789) No growth in 5 days POCT-GLUCOSE [id number] 08:39:00 Test Item Value Reference Range Comments POC-GLUCOSE METER (BEAKER) 300 mg/dL 70-[address] [facility] [address] (test xoxm=2562) [facility] [address] POCT-GLUCOSE [id number] 08:39:00 Test Item Value Reference Range Comments POC-GLUCOSE METER (BEAKER) 330 mg/dL 70-110 Notified ALEXI ENNIS/TESTED AT [facility] (test miqq=0980) [address] [facility] [address] COMPREHENSIVE METABOLIC [id number] 08:25:00 Test Item Value Reference Range Comments TOTAL PROTEIN (BEAKER) 4.9 gm/dL 6.0-8.3 (test ebdm=356) ALBUMIN (BEAKER) (test 3.3 g/dL 3.5-5.0 jrlv=3932) ALKALINE PHOSPHATASE 129 U/L 40-150 (BEAKER) (test zoqq=012) BILIRUBIN TOTAL (BEAKER) 1.2 mg/dL 0.2-1.2 (test psgc=703) SODIUM (BEAKER) (test 130 meq/L 136-145 epax=976) POTASSIUM (BEAKER) (test 4.5 meq/L 3.5-5.1 awwb=136) CHLORIDE (BEAKER) (test 102 meq/L 98-107 qibw=508) CO2 (BEAKER) (test 20 meq/L 22-29 lvmk=385) BLOOD UREA NITROGEN 32 mg/dL 7-21 (BEAKER) (test nkia=906) CREATININE (BEAKER) (test 2.28 mg/dL 0.57-1.25 ekhy=841) GLUCOSE RANDOM (BEAKER) 341 mg/dL 70-105 (test tbjp=770) CALCIUM (BEAKER) (test 8.1 mg/dL 8.4-10.2 jnpw=119) AST (SGOT) (BEAKER) (test 851 U/L 5-34 fskj=236) ALT (SGPT) (BEAKER) (test 345 U/L 6-55 inzg=752) EGFR (BEAKER) (test 22 mL/min/1.73 sq m ESTIMATED GFR IS NOT fext=5773) ACCURATE CREATININE CLEARANCE IN PREDICTING GLOMERULAR FILTRATION RATE. ESTIMATED GFR IS NOT APPLICABLE FOR DIALYSIS PATIENTS. [id number] 08:19:00 Test Item Value Reference Range Comments PHOSPHORUS (BEAKER) (test lqyc=308) 2.3 mg/dL 2.3-4.7 [id number] 08:19:00 Test Item Value Reference Range Comments MAGNESIUM (BEAKER) (test aqgb=940) 1.9 mg/dL 1.6-2.6 CALCIUM, [id number] 07:20:00 Test Item Value Reference Range Comments CALCIUM IONIZED (BEAKER) (test bmll=381) 0.98 mmol/L 1.12-1.27 PH, BLOOD (BEAKER) (test dhlo=8986) 7.42 CBC W/PLT COUNT & AUTO [id number] 06:36:00 Test Item Value Reference Range Comments WHITE BLOOD CELL COUNT (BEAKER) (test ubwg=542) 8.1 K/ L 3.5-10.5 RED BLOOD CELL COUNT (BEAKER) (test qrga=517) 3.43 M/ L 3.93-5.22 HEMOGLOBIN (BEAKER) (test fwqw=573) 9.2 GM/DL 11.2-15.7 HEMATOCRIT (BEAKER) (test bnra=960) 29.3 % 34.1-44.9 MEAN CORPUSCULAR VOLUME (BEAKER) (test deom=634) 85.4 fL 79.4-94.8 MEAN CORPUSCULAR HEMOGLOBIN (BEAKER) (test 26.8 pg 25.6-32.2 mlyi=037) MEAN CORPUSCULAR HEMOGLOBIN CONC (BEAKER) (test 31.4 GM/DL 32.2-35.5 ppcr=754) RED CELL DISTRIBUTION WIDTH (BEAKER) (test 14.6 % 11.7-14.4 onsp=858) PLATELET COUNT (BEAKER) (test nxfz=075) 132 K/CU MM 150-450 MEAN PLATELET VOLUME (BEAKER) (test etxr=616) 9.3 fL 9.4-12.3 NUCLEATED RED BLOOD CELLS (BEAKER) (test 0 /100 WBC 0-0 jhpe=192) NEUTROPHILS RELATIVE PERCENT (BEAKER) (test 77 % fbkz=752) LYMPHOCYTES RELATIVE PERCENT (BEAKER) (test 13 % pqix=975) MONOCYTES RELATIVE PERCENT (BEAKER) (test 8 % mgho=826) EOSINOPHILS RELATIVE PERCENT (BEAKER) (test 2 % wfys=274) BASOPHILS RELATIVE PERCENT (BEAKER) (test 1 % esfi=562) NEUTROPHILS ABSOLUTE COUNT (BEAKER) (test 6.17 K/ L 1.56-6.13 drbi=775) LYMPHOCYTES ABSOLUTE COUNT (BEAKER) (test 1.02 K/ L 1.18-3.74 tesg=671) MONOCYTES ABSOLUTE COUNT (BEAKER) (test 0.61 K/ L 0.24-0.36 bwki=280) EOSINOPHILS ABSOLUTE COUNT (BEAKER) (test 0.18 K/ L 0.04-0.36 jgrs=443) BASOPHILS ABSOLUTE COUNT (BEAKER) (test 0.05 K/ L 0.01-0.08 cuul=010) IMMATURE GRANULOCYTES-RELATIVE PERCENT (BEAKER) 1 % 0-1 (test bfik=4619) BASIC METABOLIC [id number] 19:24:00 Test Item Value Reference Range Comments SODIUM (BEAKER) (test 132 meq/L 136-145 smzw=628) POTASSIUM (BEAKER) (test 4.8 meq/L 3.5-5.1 kwaq=344) CHLORIDE (BEAKER) (test 103 meq/L 98-107 gcoo=886) CO2 (BEAKER) (test 20 meq/L 22-29 iqbw=605) BLOOD UREA NITROGEN 30 mg/dL 7-21 (BEAKER) (test ktpa=831) CREATININE (BEAKER) (test 1.85 mg/dL 0.57-1.25 dkqr=985) GLUCOSE RANDOM (BEAKER) 297 mg/dL 70-105 (test qvlf=900) CALCIUM (BEAKER) (test 8.7 mg/dL 8.4-10.2 qyrd=967) EGFR (BEAKER) (test 28 mL/min/1.73 sq m ESTIMATED GFR IS NOT ohbk=4158) ACCURATE CREATININE CLEARANCE IN PREDICTING GLOMERULAR FILTRATION RATE. ESTIMATED GFR IS NOT APPLICABLE FOR DIALYSIS PATIENTS. Please draw [address] Quiroz at [phone] with results.Call [id number] 19:22:00 Test Item Value Reference Range Comments SODIUM (BEAKER) (test knqb=510) 132 meq/L 136-145 POTASSIUM (BEAKER) (test wzxo=224) 4.8 meq/L 3.5-5.1 CHLORIDE (BEAKER) (test ioje=314) 103 meq/L 98-107 CO2 (BEAKER) (test silb=616) 20 meq/L 22-29 Please draw [address] Quiroz at [phone] with results.Call [phone]-FLZDISQ [id number] 18:11:00 Test Item Value Reference Range Comments POC-GLUCOSE METER (BEAKER) 314 mg/dL 70-110 TESTED AT [address] (test qyui=7694) [facility] [address] POCT-GLUCOSE [id number] 17:29:00 Test Item Value Reference Range Comments POC-GLUCOSE METER (BEAKER) 255 mg/dL 70-110 TESTED AT [address] (test fqxk=1968) [facility] [address] POCT-GLUCOSE [id number] 13:02:00 Test Item Value Reference Range Comments POC-GLUCOSE METER (BEAKER) 289 mg/dL 70-110 TESTED AT [address] (test ewtv=4491) [place] [id number] BODY FLUID CULTURE + GRAM [id number] 12:08:00 Test Item Value Reference Range Comments CULTURE (BEAKER) (test lpmq=4030) No growth GRAM STAIN RESULT (BEAKER) (test <1+ WBCs wfxm=7445) GRAM STAIN RESULT (BEAKER) (test No organisms seen ncdi=72668) SEAMUS [id number] 09:29:00Reason for exam:->cirrhosis/ portal hypertension , refractory [...] and a bleeding placement of a 10 Eritrean sheath from theright hepatic vein to the [...] 1 L of yellow fluid. The 5 [place]an needle/catheter was inserted with real-time ultrasound guidance into the peritoneal cavity in the right lateral abdomen following sterile preparation. Following this, the sheath catheter was removed. CONCLUSION: Successful TIPS and paracentesis. Signed: Yulia Kaba MDReport Verified Date/Time: 02/20/2019 09:29:18 Reading Location : [facility] P048 Angio Body Reading Room CALCIUM, [id number] 06:43:00 Test Item Value Reference Range Comments CALCIUM IONIZED (BEAKER) (test dmxj=120) 1.02 mmol/L 1.12-1.27 PH, BLOOD (BEAKER) (test wsrn=8210) 7.40 [id number] 06:12:00 Test Item Value Reference Range Comments PHOSPHORUS (BEAKER) (test kylu=530) 2.5 mg/dL 2.3-4.7 [id number] 06:12:00 Test Item Value Reference Range Comments MAGNESIUM (BEAKER) (test lfuy=929) 1.6 mg/dL 1.6-2.6 HEPATIC FUNCTION [id number] 06:12:00 Test Item Value Reference Range Comments TOTAL PROTEIN (BEAKER) (test fcha=008) 5.3 gm/dL 6.0-8.3 ALBUMIN (BEAKER) (test yahv=7714) 3.6 g/dL 3.5-5.0 BILIRUBIN TOTAL (BEAKER) (test idzx=077) 1.2 mg/dL 0.2-1.2 BILIRUBIN DIRECT (BEAKER) (test clma=544) 0.6 mg/dL 0.1-0.5 ALKALINE PHOSPHATASE (BEAKER) (test uegb=591) 80 U/L 40-150 AST (SGOT) (BEAKER) (test adfr=102) 99 U/L 5-34 ALT (SGPT) (BEAKER) (test uyyy=525) 52 U/L 6-55 COMPREHENSIVE METABOLIC [id number] 06:12:00 Test Item Value Reference Range Comments TOTAL PROTEIN (BEAKER) 5.3 gm/dL 6.0-8.3 (test tucb=550) ALBUMIN (BEAKER) (test 3.6 g/dL 3.5-5.0 dker=6216) ALKALINE PHOSPHATASE 80 U/L 40-150 (BEAKER) (test wbfl=529) BILIRUBIN TOTAL (BEAKER) 1.2 mg/dL 0.2-1.2 (test xbcj=145) SODIUM (BEAKER) (test 133 meq/L 136-145 toiz=471) POTASSIUM (BEAKER) (test 5.4 meq/L 3.5-5.1 uvuy=087) CHLORIDE (BEAKER) (test 104 meq/L 98-107 dcfy=201) CO2 (BEAKER) (test 22 meq/L 22-29 ozee=971) BLOOD UREA NITROGEN 27 mg/dL 7-21 (BEAKER) (test glac=040) CREATININE (BEAKER) (test 1.58 mg/dL 0.57-1.25 cdzd=699) GLUCOSE RANDOM (BEAKER) 300 mg/dL 70-105 (test ttaj=122) CALCIUM (BEAKER) (test 8.4 mg/dL 8.4-10.2 qcfq=135) AST (SGOT) (BEAKER) (test 99 U/L 5-34 csju=689) ALT (SGPT) (BEAKER) (test 52 U/L 6-55 uozq=174) EGFR (BEAKER) (test 33 mL/min/1.73 sq m ESTIMATED GFR IS NOT ocax=9485) ACCURATE CREATININE CLEARANCE IN PREDICTING GLOMERULAR FILTRATION RATE. ESTIMATED GFR IS NOT APPLICABLE FOR DIALYSIS PATIENTS. PROTHROMBIN [id number] 05:57:00 Test Item Value Reference Range Comments PROTIME (BEAKER) (test muon=644) 16.4 seconds 11.7-14.7 INR (BEAKER) (test cscx=633) 1.3 <=5.9 RECOMMENDED COUMADIN/WARFARIN INR THERAPY RANGESSTANDARD DOSE: 2.0 - 3.0 Includes: PROPHYLAXIS forvenous thrombosis, systemic embolization; TREATMENT for venous thrombosis and/or pulmonary embolus.HIGH RISK: Target INR is 2.5-3.5 for patients with mechanical heart valves.CBC W/PLT COUNT & AUTO [id number] 05:54:00 Test Item Value Reference Range Comments WHITE BLOOD CELL COUNT (BEAKER) (test pyqv=732) 7.9 K/ L 3.5-10.5 RED BLOOD CELL COUNT (BEAKER) (test rkjf=325) 3.24 M/ L 3.93-5.22 HEMOGLOBIN (BEAKER) (test wolm=125) 8.9 GM/DL 11.2-15.7 HEMATOCRIT (BEAKER) (test zddl=999) 28.0 % 34.1-44.9 MEAN CORPUSCULAR VOLUME (BEAKER) (test jutz=464) 86.4 fL 79.4-94.8 MEAN CORPUSCULAR HEMOGLOBIN (BEAKER) (test 27.5 pg 25.6-32.2 ovqg=817) MEAN CORPUSCULAR HEMOGLOBIN CONC (BEAKER) (test 31.8 GM/DL 32.2-35.5 arts=192) RED CELL DISTRIBUTION WIDTH (BEAKER) (test 14.4 % 11.7-14.4 poco=533) PLATELET COUNT (BEAKER) (test zley=128) 132 K/CU MM 150-450 MEAN PLATELET VOLUME (BEAKER) (test ptwv=381) 9.3 fL 9.4-12.3 NUCLEATED RED BLOOD CELLS (BEAKER) (test 0 /100 WBC 0-0 igwm=260) NEUTROPHILS RELATIVE PERCENT (BEAKER) (test 83 % admp=637) LYMPHOCYTES RELATIVE PERCENT (BEAKER) (test 10 % joou=572) MONOCYTES RELATIVE PERCENT (BEAKER) (test 7 % hzxv=051) EOSINOPHILS RELATIVE PERCENT (BEAKER) (test 0 % vbhi=251) BASOPHILS RELATIVE PERCENT (BEAKER) (test 0 % ehsc=471) NEUTROPHILS ABSOLUTE COUNT (BEAKER) (test 6.55 K/ L 1.56-6.13 rhhi=729) LYMPHOCYTES ABSOLUTE COUNT (BEAKER) (test 0.77 K/ L 1.18-3.74 bsex=497) MONOCYTES ABSOLUTE COUNT (BEAKER) (test 0.55 K/ L 0.24-0.36 oilp=736) EOSINOPHILS ABSOLUTE COUNT (BEAKER) (test 0.00 K/ L 0.04-0.36 fwcp=535) BASOPHILS ABSOLUTE COUNT (BEAKER) (test 0.02 K/ L 0.01-0.08 qvrk=393) IMMATURE GRANULOCYTES-RELATIVE PERCENT (BEAKER) 0 % 0-1 (test mjid=2091) POCT-GLUCOSE [id number] 19:01:00 Test Item Value Reference Range Comments POC-GLUCOSE METER (BEAKER) 301 mg/dL 70-[address] [facility] [address] [facility] (test jbru=0283) [facility] [address] CT, ABDOMEN, WITHOUT [id number] 12:33:00FINAL REPORT ABDOMINAL CT DATED 02/19/2019 CLINICAL [...] MDReport Verified Date/Time: 02/19/2019 12:33:54 Reading Location: [facility] C013Y CT Body Reading Room Electronicallysigned by: GIOVANNI HAAS M.D. on 02/19/2019 12:33 PMBODY FLUID CULTURE + GRAM [id number] 12:08:00 Test Item Value Reference Range Comments CULTURE (BEAKER) (test hqty=2202) No growth GRAM STAIN RESULT (BEAKER) (test <1+ WBCs cyat=7592) GRAM STAIN RESULT (BEAKER) (test No organisms seen ithm=19369) POCT-GLUCOSE [id number] 09:38:00 Test Item Value Reference Range Comments POC-GLUCOSE METER (BEAKER) 274 mg/dL 70-[address] [facility] [address] [place] [address] (test kjdy=2454) [facility] [address] CALCIUM, [id number] 06:56:00 Test Item Value Reference Range Comments CALCIUM IONIZED (BEAKER) (test bxwu=259) 1.05 mmol/L 1.12-1.27 PH, BLOOD (BEAKER) (test mdqc=1536) 7.40 [id number] 06:22:00 Test Item Value Reference Range Comments PHOSPHORUS (BEAKER) (test tsdr=760) 2.3 mg/dL 2.3-4.7 [id number] 06:22:00 Test Item Value Reference Range Comments MAGNESIUM (BEAKER) (test fsma=437) 1.7 mg/dL 1.6-2.6 HEPATIC FUNCTION [id number] 06:22:00 Test Item Value Reference Range Comments TOTAL PROTEIN (BEAKER) (test gwqf=806) 5.6 gm/dL 6.0-8.3 ALBUMIN (BEAKER) (test ydfs=9097) 3.4 g/dL 3.5-5.0 BILIRUBIN TOTAL (BEAKER) (test ttkf=591) 0.9 mg/dL 0.2-1.2 BILIRUBIN DIRECT (BEAKER) (test ddwo=890) 0.4 mg/dL 0.1-0.5 ALKALINE PHOSPHATASE (BEAKER) (test lpmp=084) 121 U/L 40-150 AST (SGOT) (BEAKER) (test rcdi=327) 28 U/L 5-34 ALT (SGPT) (BEAKER) (test vvjq=411) 12 U/L 6-55 COMPREHENSIVE METABOLIC [id number] 06:22:00 Test Item Value Reference Range Comments TOTAL PROTEIN (BEAKER) 5.6 gm/dL 6.0-8.3 (test sdsd=128) ALBUMIN (BEAKER) (test 3.4 g/dL 3.5-5.0 nbgq=8693) ALKALINE PHOSPHATASE 121 U/L 40-150 (BEAKER) (test hsyq=767) BILIRUBIN TOTAL (BEAKER) 0.9 mg/dL 0.2-1.2 (test jvtf=173) SODIUM (BEAKER) (test 135 meq/L 136-145 esbb=882) POTASSIUM (BEAKER) (test 4.5 meq/L 3.5-5.1 bcpd=416) CHLORIDE (BEAKER) (test 105 meq/L 98-107 xywc=724) CO2 (BEAKER) (test 22 meq/L 22-29 qizx=310) BLOOD UREA NITROGEN 29 mg/dL 7-21 (BEAKER) (test kpuz=548) CREATININE (BEAKER) (test 1.38 mg/dL 0.57-1.25 tpyj=950) GLUCOSE RANDOM (BEAKER) 313 mg/dL 70-105 (test yzhn=705) CALCIUM (BEAKER) (test 8.7 mg/dL 8.4-10.2 fejy=760) AST (SGOT) (BEAKER) (test 28 U/L 5-34 ankg=078) ALT (SGPT) (BEAKER) (test 12 U/L 6-55 omen=212) EGFR (BEAKER) (test 39 mL/min/1.73 sq m ESTIMATED GFR IS NOT vdza=4501) ACCURATE CREATININE CLEARANCE IN PREDICTING GLOMERULAR FILTRATION RATE. ESTIMATED GFR IS NOT APPLICABLE FOR DIALYSIS PATIENTS. PROTHROMBIN [id number] 06:15:00 Test Item Value Reference Range Comments PROTIME (BEAKER) (test jaqf=681) 14.0 seconds 11.7-14.7 INR (BEAKER) (test nmhk=592) 1.1 <=5.9 RECOMMENDED COUMADIN/WARFARIN INR THERAPY RANGESSTANDARD DOSE: 2.0 - 3.0 Includes: PROPHYLAXIS forvenous thrombosis, systemic embolization; TREATMENT for venous thrombosis and/or pulmonary embolus.HIGH RISK: Target INR is 2.5-3.5 for patients with mechanical heart valves.CBC W/PLT COUNT & AUTO [id number] 05:57:00 Test Item Value Reference Range Comments WHITE BLOOD CELL COUNT (BEAKER) (test xfut=580) 6.9 K/ L 3.5-10.5 RED BLOOD CELL COUNT (BEAKER) (test evne=192) 3.83 M/ L 3.93-5.22 HEMOGLOBIN (BEAKER) (test pvxx=016) 10.5 GM/DL 11.2-15.7 HEMATOCRIT (BEAKER) (test ianc=097) 33.1 % 34.1-44.9 MEAN CORPUSCULAR VOLUME (BEAKER) (test ulvf=971) 86.4 fL 79.4-94.8 MEAN CORPUSCULAR HEMOGLOBIN (BEAKER) (test 27.4 pg 25.6-32.2 npsf=102) MEAN CORPUSCULAR HEMOGLOBIN CONC (BEAKER) (test 31.7 GM/DL 32.2-35.5 kudm=604) RED CELL DISTRIBUTION WIDTH (BEAKER) (test 14.4 % 11.7-14.4 wdui=761) PLATELET COUNT (BEAKER) (test ihmb=323) 175 K/CU MM 150-450 MEAN PLATELET VOLUME (BEAKER) (test bqxs=254) 9.9 fL 9.4-12.3 NUCLEATED RED BLOOD CELLS (BEAKER) (test 0 /100 WBC 0-0 kbzu=069) NEUTROPHILS RELATIVE PERCENT (BEAKER) (test 73 % aibj=638) LYMPHOCYTES RELATIVE PERCENT (BEAKER) (test 16 % vufz=981) MONOCYTES RELATIVE PERCENT (BEAKER) (test 7 % ddjy=758) EOSINOPHILS RELATIVE PERCENT (BEAKER) (test 4 % acyi=418) BASOPHILS RELATIVE PERCENT (BEAKER) (test 1 % pngc=130) NEUTROPHILS ABSOLUTE COUNT (BEAKER) (test 4.99 K/ L 1.56-6.13 xkrq=136) LYMPHOCYTES ABSOLUTE COUNT (BEAKER) (test 1.09 K/ L 1.18-3.74 krgo=189) MONOCYTES ABSOLUTE COUNT (BEAKER) (test 0.50 K/ L 0.24-0.36 qyun=293) EOSINOPHILS ABSOLUTE COUNT (BEAKER) (test 0.25 K/ L 0.04-0.36 ucxi=915) BASOPHILS ABSOLUTE COUNT (BEAKER) (test 0.04 K/ L 0.01-0.08 csxa=728) IMMATURE GRANULOCYTES-RELATIVE PERCENT (BEAKER) 0 % 0-1 (test vqgx=6729) POCT-GLUCOSE [id number] 23:05:00 Test Item Value Reference Range Comments POC-GLUCOSE METER (BEAKER) 412 mg/dL 70-110 Will Repeat Test/TESTED AT (test wzhe=9155) [address] [address] POCT-GLUCOSE [id number] 22:12:00 Test Item Value Reference Range Comments POC-GLUCOSE METER (BEAKER) 371 mg/dL 70-110 TESTED AT [address] (test ctzn=8592) [facility] [address] BODY FLUID CELL COUNT WITH [id number] 13:06:00 Test Item Value Reference Range Comments APPEARANCE FLUID (BEAKER) (test gkzx=290) Slightly Hazy Clear COLOR FLUID (BEAKER) (test idqo=727) Yellow Colorless, Straw RBC FLUID (BEAKER) (test tdgx=086) 252 /cu mm <=1 ADJUSTED WBC FLUID (BEAKER) (test iwmv=1430) 112 /cu mm <=5 LINING CELLS (BEAKER) (test xxhq=7008) 10 /cu mm <=1 NEUTROPHILS FLUID (BEAKER) (test oexd=2195) 8 % LYMPHS FLUID (BEAKER) (test qwam=908) 40 % MONO/MACROPHAGE FLUID (BEAKER) (test 43 % qhjt=685) EOSINOPHILS FLUID (BEAKER) (test pcds=561) 0 % BASO FLUID (BEAKER) (test repg=061) 0 % CONTAINER BODY FLUID (BEAKER) (test EDTA Tube sgqi=4090) U/S, [id number] 10:21:00Limit 8 LReason for exam:->ascites, limit 8 [...] skin and deep soft tissues. A 5 E[place]an one-step catheter was inserted and removed from the peritoneal space and approximately 8.0 liters of clear yellow fluid was aspirated from the abdomen. There were no immediate complications. Impression: Successful ultrasound guided paracentesis with aspiration of 8.0 liters of fluid. Signed: Akil Chung MDReport Verified Date/ Time: 02/18/2019 10:21:08 Reading Location: [address] Ultrasound Reading Room [id number] 07:08:00 Test Item Value Reference Range Comments MAGNESIUM (BEAKER) (test xdzl=701) 1.7 mg/dL 1.6-2.6 HEPATIC FUNCTION [id number] 07:08:00 Test Item Value Reference Range Comments TOTAL PROTEIN (BEAKER) (test ndsv=184) 5.4 gm/dL 6.0-8.3 ALBUMIN (BEAKER) (test nvcm=8674) 3.2 g/dL 3.5-5.0 BILIRUBIN TOTAL (BEAKER) (test kdhw=517) 0.8 mg/dL 0.2-1.2 BILIRUBIN DIRECT (BEAKER) (test hvny=330) 0.4 mg/dL 0.1-0.5 ALKALINE PHOSPHATASE (BEAKER) (test lfmz=146) 104 U/L 40-150 AST (SGOT) (BEAKER) (test kpoj=232) 20 U/L 5-34 ALT (SGPT) (BEAKER) (test ylpk=890) 10 U/L 6-55 COMPREHENSIVE METABOLIC [id number] 07:08:00 Test Item Value Reference Range Comments TOTAL PROTEIN (BEAKER) 5.4 gm/dL 6.0-8.3 (test fqxz=434) ALBUMIN (BEAKER) (test 3.2 g/dL 3.5-5.0 dfzb=0623) ALKALINE PHOSPHATASE 104 U/L 40-150 (BEAKER) (test opsz=525) BILIRUBIN TOTAL (BEAKER) 0.8 mg/dL 0.2-1.2 (test kbqg=287) SODIUM (BEAKER) (test 136 meq/L 136-145 llch=993) POTASSIUM (BEAKER) (test 4.3 meq/L 3.5-5.1 qgjm=328) CHLORIDE (BEAKER) (test 108 meq/L 98-107 kogu=811) CO2 (BEAKER) (test 22 meq/L 22-29 tixo=298) BLOOD UREA NITROGEN 31 mg/dL 7-21 (BEAKER) (test uxjf=595) CREATININE (BEAKER) (test 1.26 mg/dL 0.57-1.25 yhyc=939) GLUCOSE RANDOM (BEAKER) 262 mg/dL 70-105 (test ptbu=093) CALCIUM (BEAKER) (test 8.5 mg/dL 8.4-10.2 tzjf=572) AST (SGOT) (BEAKER) (test 20 U/L 5-34 vens=562) ALT (SGPT) (BEAKER) (test 10 U/L 6-55 qqtj=962) EGFR (BEAKER) (test 43 mL/min/1.73 sq m ESTIMATED GFR IS NOT iuwz=2636) ACCURATE CREATININE CLEARANCE IN PREDICTING GLOMERULAR FILTRATION RATE. ESTIMATED GFR IS NOT APPLICABLE FOR DIALYSIS PATIENTS. [id number] 07:07:00 Test Item Value Reference Range Comments PHOSPHORUS (BEAKER) (test quuc=324) 2.7 mg/dL 2.3-4.7 POCT-GLUCOSE [id number] 06:31:00 Test Item Value Reference Range Comments POC-GLUCOSE METER (BEAKER) 249 mg/dL 70-[address] [facility] [address] [facility] (test oqxs=5358) [facility] [address] URINALYSIS W/ [id number] 06:17:00 Test Item Value Reference Range Comments COLOR (BEAKER) (test amqi=143) Yellow CLARITY (BEAKER) (test xkth=493) Clear SPECIFIC GRAVITY UA (BEAKER) (test dxfr=058) 1.013 1.001-1.035 PH UA (BEAKER) (test cpjg=267) 5.0 5.0-8.0 PROTEIN UA (BEAKER) (test lvnl=830) Negative Negative GLUCOSE UA (BEAKER) (test ivpd=240) 100 mg/dL Negative KETONES UA (BEAKER) (test inkf=117) Negative Negative BILIRUBIN UA (BEAKER) (test yrto=225) Negative Negative BLOOD UA (BEAKER) (test bkvc=729) Negative Negative NITRITE UA (BEAKER) (test dbzh=460) Negative Negative LEUKOCYTE ESTERASE UA (BEAKER) (test cycw=028) Large Negative UROBILINOGEN UA (BEAKER) (test bjjt=572) 0.2 mg/dL 0.2-1.0 RBC UA (BEAKER) (test kgou=176) 2 /HPF WBC UA (BEAKER) (test uuzb=737) 24 /HPF SQUAMOUS EPITHELIAL (BEAKER) (test zccn=550) 14 /HPF HYALINE CASTS (BEAKER) (test rixz=597) 3 /LPF SOURCE(BEAKER) (test xkki=0660) Urine, Voided [id number] 05:53:00 Test Item Value Reference Range Comments PARTIAL THROMBOPLASTIN TIME (BEAKER) (test 20.1 seconds 22.5-36.0 mtdv=637) CALCIUM, [id number] 05:50:00 Test Item Value Reference Range Comments CALCIUM IONIZED (BEAKER) (test dyzc=686) 1.00 mmol/L 1.12-1.27 PH, BLOOD (BEAKER) (test mybe=3647) 7.43 PROTHROMBIN [id number] 04:54:00 Test Item Value Reference Range Comments PROTIME (BEAKER) (test rnka=449) 13.8 seconds 11.7-14.7 INR (BEAKER) (test kqgk=215) 1.0 <=5.9 RECOMMENDED COUMADIN/WARFARIN INR THERAPY RANGESSTANDARD DOSE: 2.0 - 3.0 Includes: PROPHYLAXIS forvenous thrombosis, systemic embolization; TREATMENT for venous thrombosis and/or pulmonary embolus.HIGH RISK: Target INR is 2.5-3.5 for patients with mechanical heart valves.CREATININE, RANDOM [id number] 04: 48:00 Test Item Value Reference Range Comments CREATININE URINE (BEAKER) (test bhov=983) 115.9 mg/dL Reference Range: No NormalsPROTEIN, RANDOM [id number] 04:48:00 Test Item Value Reference Range Comments PROTEIN, URINE (BEAKER) (test swjo=3995) 12 mg/dL 0-14 CBC W/PLT COUNT & AUTO [id number] 04:30:00 Test Item Value Reference Range Comments WHITE BLOOD CELL COUNT (BEAKER) (test ovps=201) 5.2 K/ L 3.5-10.5 RED BLOOD CELL COUNT (BEAKER) (test enck=015) 3.58 M/ L 3.93-5.22 HEMOGLOBIN (BEAKER) (test ixvs=951) 9.8 GM/DL 11.2-15.7 HEMATOCRIT (BEAKER) (test hqvz=815) 31.6 % 34.1-44.9 MEAN CORPUSCULAR VOLUME (BEAKER) (test muys=479) 88.3 fL 79.4-94.8 MEAN CORPUSCULAR HEMOGLOBIN (BEAKER) (test 27.4 pg 25.6-32.2 nytc=573) MEAN CORPUSCULAR HEMOGLOBIN CONC (BEAKER) (test 31.0 GM/DL 32.2-35.5 mfub=376) RED CELL DISTRIBUTION WIDTH (BEAKER) (test 14.4 % 11.7-14.4 hwyv=895) PLATELET COUNT (BEAKER) (test bvio=933) 173 K/CU MM 150-450 MEAN PLATELET VOLUME (BEAKER) (test ogos=263) 9.6 fL 9.4-12.3 NUCLEATED RED BLOOD CELLS (BEAKER) (test 0 /100 WBC 0-0 fjyj=484) NEUTROPHILS RELATIVE PERCENT (BEAKER) (test 67 % fecz=799) LYMPHOCYTES RELATIVE PERCENT (BEAKER) (test 19 % jqsk=051) MONOCYTES RELATIVE PERCENT (BEAKER) (test 8 % rtxk=503) EOSINOPHILS RELATIVE PERCENT (BEAKER) (test 5 % bzrd=096) BASOPHILS RELATIVE PERCENT (BEAKER) (test 1 % gisr=150) NEUTROPHILS ABSOLUTE COUNT (BEAKER) (test 3.43 K/ L 1.56-6.13 btxc=435) LYMPHOCYTES ABSOLUTE COUNT (BEAKER) (test 0.98 K/ L 1.18-3.74 ivow=293) MONOCYTES ABSOLUTE COUNT (BEAKER) (test 0.42 K/ L 0.24-0.36 wwjn=889) EOSINOPHILS ABSOLUTE COUNT (BEAKER) (test 0.26 K/ L 0.04-0.36 yfke=331) BASOPHILS ABSOLUTE COUNT (BEAKER) (test 0.04 K/ L 0.01-0.08 ufdh=279) IMMATURE GRANULOCYTES-RELATIVE PERCENT (BEAKER) 0 % 0-1 (test yavb=8970) U/S, ABDOMINAL, WITH [id number] 03:48:00Reason for exam:->TIPS workup , assess for vessels patencyFINAL REPORT INDICATION: TIPS workup, assess for vessels patency COMPARISON: February 17, 2019, February 16, 2019 TECHNIQUE: Real-time lo-scale transabdominal and color and spectral Doppler ultrasound. [...] Portal vein demonstrates hepatopedal flow. Signed: Elizabeth Mckinneyepcristy Verified Date/Time: 02/18/2019 03:48:21 Reading Location: [facility] C013V Neuro Reading Room Electronically signed by: Se SCHNEIDER 2018 03:48 AMPOCT-GLUCOSE [id number] 00:28:00 Test Item Value Reference Range Comments POC-GLUCOSE METER (BEAKER) 330 mg/dL 70-110 Will Repeat Test/TESTED AT (test ciku=4951) [facility] [address] [address] BODY FLUID CELL COUNT WITH [id number] 18:02:00 Test Item Value Reference Range Comments APPEARANCE FLUID (BEAKER) (test zfkn=435) Clear Clear COLOR FLUID (BEAKER) (test jzec=012) Yellow Colorless, Straw RBC FLUID (BEAKER) (test aaqu=233) 20 /cu mm <=1 ADJUSTED WBC FLUID (BEAKER) (test fugu=4269) 50 /cu mm <=5 LINING CELLS (BEAKER) (test awou=0322) 0 /cu mm <=1 NEUTROPHILS FLUID (BEAKER) (test whjc=0013) 1 % LYMPHS FLUID (BEAKER) (test pdop=406) 38 % MONO/MACROPHAGE FLUID (BEAKER) (test pvud=758) 61 % EOSINOPHILS FLUID (BEAKER) (test fxvd=427) 0 % BASO FLUID (BEAKER) (test ueto=069) 0 % CONTAINER BODY FLUID (BEAKER) (test grlx=8688) EDTA Tube U/S, [id number] 16:30:00limit volume to 8 LReason for exam:-> [...] serous fluid was removed. Signed: Jessika Sadler Verified Date/Time: 02/17 16:30:42 Reading Location: [facility] [id number] Ultrasound Reading Room POCT-GLUCOSE [id number] 09:48:00 Test Item Value Reference Range Comments POC-GLUCOSE METER (BEAKER) 198 mg/dL 70-110 TESTED AT [address] (test hojx=1988) [place] [address] BASIC METABOLIC [id number] 06:30:00 Test Item Value Reference Range Comments SODIUM (BEAKER) (test 137 meq/L 136-145 llwf=343) POTASSIUM (BEAKER) (test 4.5 meq/L 3.5-5.1 sgin=773) CHLORIDE (BEAKER) (test 107 meq/L 98-107 ldvq=365) CO2 (BEAKER) (test 24 meq/L 22-29 eicd=282) BLOOD UREA NITROGEN 41 mg/dL 7-21 (BEAKER) (test aexk=035) CREATININE (BEAKER) (test 1.48 mg/dL 0.57-1.25 lnyk=608) GLUCOSE RANDOM (BEAKER) 200 mg/dL 70-105 (test zbee=202) CALCIUM (BEAKER) (test 8.9 mg/dL 8.4-10.2 xtcm=379) EGFR (BEAKER) (test 36 mL/min/1.73 sq m ESTIMATED GFR IS NOT lqof=0123) ACCURATE CREATININE CLEARANCE IN PREDICTING GLOMERULAR FILTRATION RATE. ESTIMATED GFR IS NOT APPLICABLE FOR DIALYSIS PATIENTS. POCT-GLUCOSE [id number] 17:31:00 Test Item Value Reference Range Comments POC-GLUCOSE METER (BEAKER) 165 mg/dL 70-110 TESTED AT [address] (test mxia=6269) [place] [address] U/S, [id number] 16:00:00Reason for exam:->ascites SOBFINAL REPORT PROCEDURE: Ultrasound-guided paracentesis. INDICATION: Ascites. DESCRIPTION: This paracentesis was performed by Lesley Parnell under the direct supervision of Rodriguez Hendrix. After obtaining informed written consent, ultrasound scan of the abdomen identified ascites in the right lower quadrant. The overlying skin was prepped and draped in the usual, sterile fashion andlocal 2% lidocaine anesthesia was administered. A 5 [place] catheter was advanced into the peritonealcavity and 6000 mL of clear yellow fluid was removed. The catheter was removed without immediate complication. Samples were sent for analysis. IMPRESSION: Uncomplicated ultrasound-guided paracentesis with 6000 mL fluid removed. Signed: Rodriguez Hendrix MDReport Verified Date/Time: 16:00:46 Reading Location: [address] Ultrasound Reading Room BODY FLUID CELL COUNT WITH [id number] 15:52:00 Test Item Value Reference Range Comments APPEARANCE FLUID (BEAKER) (test pkiy=132) Clear Clear COLOR FLUID (BEAKER) (test fnos=057) Yellow Colorless, Straw RBC FLUID (BEAKER) (test uvrl=791) 10 /cu mm <=1 ADJUSTED WBC FLUID (BEAKER) (test otvk=5791) 80 /cu mm <=5 LINING CELLS (BEAKER) (test cqah=7539) 0 /cu mm <=1 NEUTROPHILS FLUID (BEAKER) (test iqng=1675) 5 % LYMPHS FLUID (BEAKER) (test slcv=744) 35 % MONO/MACROPHAGE FLUID (BEAKER) (test jdjl=154) 59 % EOSINOPHILS FLUID (BEAKER) (test hzwk=704) 1 % BASO FLUID (BEAKER) (test fwxu=708) 0 % CONTAINER BODY FLUID (BEAKER) (test ydlk=7216) EDTA Tube BASIC METABOLIC [id number] 07:28:00 Test Item Value Reference Range Comments SODIUM (BEAKER) (test 134 meq/L 136-145 ufgh=199) POTASSIUM (BEAKER) (test 5.0 meq/L 3.5-5.1 ncjq=807) CHLORIDE (BEAKER) (test 107 meq/L 98-107 mnap=006) CO2 (BEAKER) (test 22 meq/L 22-29 kcej=686) BLOOD UREA NITROGEN 46 mg/dL 7-21 (BEAKER) (test qhlh=849) CREATININE (BEAKER) (test 1.61 mg/dL 0.57-1.25 nvfq=228) GLUCOSE RANDOM (BEAKER) 220 mg/dL 70-105 (test cnfm=402) CALCIUM (BEAKER) (test 9.0 mg/dL 8.4-10.2 wkeb=639) EGFR (BEAKER) (test 33 mL/min/1.73 sq m ESTIMATED GFR IS NOT oevb=7735) ACCURATE CREATININE CLEARANCE IN PREDICTING GLOMERULAR FILTRATION RATE. ESTIMATED GFR IS NOT APPLICABLE FOR DIALYSIS PATIENTS. HEPATIC FUNCTION [id number] 07:28:00 Test Item Value Reference Range Comments TOTAL PROTEIN (BEAKER) (test heve=399) 5.9 gm/dL 6.0-8.3 ALBUMIN (BEAKER) (test slyk=2939) 3.0 g/dL 3.5-5.0 BILIRUBIN TOTAL (BEAKER) (test twps=833) 0.6 mg/dL 0.2-1.2 BILIRUBIN DIRECT (BEAKER) (test yolc=347) 0.3 mg/dL 0.1-0.5 ALKALINE PHOSPHATASE (BEAKER) (test jbal=076) 154 U/L 40-150 AST (SGOT) (BEAKER) (test iylp=706) 22 U/L 5-34 ALT (SGPT) (BEAKER) (test ikbu=734) 12 U/L 6-55 [id number] 07:27:00 Test Item Value Reference Range Comments MAGNESIUM (BEAKER) (test afkf=646) 2.2 mg/dL 1.6-2.6 CBC W/PLT COUNT & AUTO [id number] 07:06:00 Test Item Value Reference Range Comments WHITE BLOOD CELL COUNT (BEAKER) (test zucx=251) 6.2 K/ L 3.5-10.5 RED BLOOD CELL COUNT (BEAKER) (test dotw=754) 3.62 M/ L 3.93-5.22 HEMOGLOBIN (BEAKER) (test etko=679) 9.8 GM/DL 11.2-15.7 HEMATOCRIT (BEAKER) (test bzsz=223) 31.4 % 34.1-44.9 MEAN CORPUSCULAR VOLUME (BEAKER) (test nvtz=173) 86.7 fL 79.4-94.8 MEAN CORPUSCULAR HEMOGLOBIN (BEAKER) (test 27.1 pg 25.6-32.2 qcxv=571) MEAN CORPUSCULAR HEMOGLOBIN CONC (BEAKER) (test 31.2 GM/DL 32.2-35.5 fxgu=664) RED CELL DISTRIBUTION WIDTH (BEAKER) (test 14.5 % 11.7-14.4 sqby=213) PLATELET COUNT (BEAKER) (test hqum=789) 198 K/CU MM 150-450 MEAN PLATELET VOLUME (BEAKER) (test fiid=681) 9.8 fL 9.4-12.3 NUCLEATED RED BLOOD CELLS (BEAKER) (test 0 /100 WBC 0-0 tihp=404) NEUTROPHILS RELATIVE PERCENT (BEAKER) (test 64 % ppae=428) LYMPHOCYTES RELATIVE PERCENT (BEAKER) (test 22 % yqfx=235) MONOCYTES RELATIVE PERCENT (BEAKER) (test 9 % cklw=695) EOSINOPHILS RELATIVE PERCENT (BEAKER) (test 5 % hycj=639) BASOPHILS RELATIVE PERCENT (BEAKER) (test 1 % jowe=885) NEUTROPHILS ABSOLUTE COUNT (BEAKER) (test 3.93 K/ L 1.56-6.13 fzoe=232) LYMPHOCYTES ABSOLUTE COUNT (BEAKER) (test 1.35 K/ L 1.18-3.74 nxwa=631) MONOCYTES ABSOLUTE COUNT (BEAKER) (test 0.53 K/ L 0.24-0.36 apkt=398) EOSINOPHILS ABSOLUTE COUNT (BEAKER) (test 0.28 K/ L 0.04-0.36 dxmo=486) BASOPHILS ABSOLUTE COUNT (BEAKER) (test 0.05 K/ L 0.01-0.08 wjhm=259) IMMATURE GRANULOCYTES-RELATIVE PERCENT (BEAKER) 1 % 0-1 (test serm=2463) [id number] 06:49:00 Test Item Value Reference Range Comments PROTIME (BEAKER) (test mmyj=405) 13.4 seconds 11.7-14.7 INR (BEAKER) (test pwcp=357) 1.0 <=5.9 PARTIAL THROMBOPLASTIN TIME (BEAKER) (test 30.9 seconds 22.5-36.0 srfy=732) RECOMMENDED COUMADIN/WARFARIN INR THERAPY RANGESSTANDARD DOSE: 2.0 - 3.0 Includes: PROPHYLAXIS forvenous thrombosis, systemic embolization; TREATMENT for venous thrombosis and/or pulmonary embolus.HIGH RISK: Target INR is 2.5-3.5 for patients with mechanical heart valves.URINALYSIS W/ REFLEX URINE [id number] 05:32:00 Test Item Value Reference Range Comments COLOR (BEAKER) (test ouox=235) Yellow CLARITY (BEAKER) (test eroe=698) Hazy SPECIFIC GRAVITY UA (BEAKER) (test puli=393) 1.021 1.001-1.035 PH UA (BEAKER) (test mwhx=116) 5.5 5.0-8.0 PROTEIN UA (BEAKER) (test mnoc=128) 30 mg/dL Negative GLUCOSE UA (BEAKER) (test nhwv=087) Negative Negative KETONES UA (BEAKER) (test frne=807) Negative Negative BILIRUBIN UA (BEAKER) (test yiax=021) Negative Negative BLOOD UA (BEAKER) (test rruh=501) Negative Negative NITRITE UA (BEAKER) (test wpoe=408) Negative Negative LEUKOCYTE ESTERASE UA (BEAKER) (test tdtx=381) Large Negative UROBILINOGEN UA (BEAKER) (test hdys=666) 2.0 mg/dL 0.2-1.0 RBC UA (BEAKER) (test svvn=048) 7 /HPF WBC UA (BEAKER) (test wxhl=910) 7 /HPF MUCUS (BEAKER) (test wsgl=4406) Rare SQUAMOUS EPITHELIAL (BEAKER) (test aysz=144) 6 /HPF HYALINE CASTS (BEAKER) (test qhmc=802) 40 /LPF SOURCE(BEAKER) (test xuur=9936) POCT-GLUCOSE [id number] 05:00:00 Test Item Value Reference Range Comments POC-GLUCOSE METER (BEAKER) 227 mg/dL 70-[address] [facility] [address] [facility] (test tdwl=0804) [facility] [address] ALPHA FETOPROTEIN (AFP), TUMOR [id number] 15:55:00 Test Item Value Reference Range Comments ALPHA-FETOPROTEIN (BEAKER) (test ozik=8961) 3.4 ng/mL <10.0 BASIC METABOLIC [id number] 15:40:00 Test Item Value Reference Range Comments SODIUM (BEAKER) (test 133 meq/L 136-145 vkwq=194) POTASSIUM (BEAKER) (test 4.8 meq/L 3.5-5.1 kxzp=198) CHLORIDE (BEAKER) (test 101 meq/L 98-107 ciic=684) CO2 (BEAKER) (test 23 meq/L 22-29 nhvq=932) BLOOD UREA NITROGEN 37 mg/dL 7-21 (BEAKER) (test kdcn=580) CREATININE (BEAKER) (test 2.17 mg/dL 0.57-1.25 fucb=432) GLUCOSE RANDOM (BEAKER) 191 mg/dL 70-105 (test upri=578) CALCIUM (BEAKER) (test 9.2 mg/dL 8.4-10.2 qtom=082) EGFR (BEAKER) (test 23 mL/min/1.73 sq m ESTIMATED GFR IS NOT mglo=5177) ACCURATE CREATININE CLEARANCE IN PREDICTING GLOMERULAR FILTRATION RATE. ESTIMATED GFR IS NOT APPLICABLE FOR DIALYSIS PATIENTS. HEPATIC FUNCTION [id number] 15:38:00 Test Item Value Reference Range Comments TOTAL PROTEIN (BEAKER) (test fvgl=952) 6.9 gm/dL 6.0-8.3 ALBUMIN (BEAKER) (test jnqd=7229) 3.7 g/dL 3.5-5.0 BILIRUBIN TOTAL (BEAKER) (test eldo=178) 0.8 mg/dL 0.2-1.2 BILIRUBIN DIRECT (BEAKER) (test llhx=031) 0.3 mg/dL 0.1-0.5 ALKALINE PHOSPHATASE (BEAKER) (test xhym=582) 95 U/L 40-150 AST (SGOT) (BEAKER) (test ybpo=775) 24 U/L 5-34 ALT (SGPT) (BEAKER) (test jnqh=912) 14 U/L 6-55 PROTHROMBIN [id number] 15:29:00 Test Item Value Reference Range Comments PROTIME (BEAKER) (test zaoi=152) 12.8 seconds 11.7-14.7 INR (BEAKER) (test mhcg=143) 1.0 <=5.9 RECOMMENDED COUMADIN/WARFARIN INR THERAPY RANGESSTANDARD DOSE: 2.0 - 3.0 Includes: PROPHYLAXIS forvenous thrombosis, systemic embolization; TREATMENT for venous thrombosis and/or pulmonary embolus.HIGH RISK: Target INR is 2.5-3.5 for patients with mechanical heart valves.CBC W/PLT COUNT & AUTO [id number] 15:17:00 Test Item Value Reference Range Comments WHITE BLOOD CELL COUNT (BEAKER) (test hthw=095) 7.8 K/ L 3.5-10.5 RED BLOOD CELL COUNT (BEAKER) (test jugr=491) 4.49 M/ L 3.93-5.22 HEMOGLOBIN (BEAKER) (test mcbr=326) 12.4 GM/DL 11.2-15.7 HEMATOCRIT (BEAKER) (test sehw=237) 39.1 % 34.1-44.9 MEAN CORPUSCULAR VOLUME (BEAKER) (test covr=769) 87.1 fL 79.4-94.8 MEAN CORPUSCULAR HEMOGLOBIN (BEAKER) (test 27.6 pg 25.6-32.2 sumg=346) MEAN CORPUSCULAR HEMOGLOBIN CONC (BEAKER) (test 31.7 GM/DL 32.2-35.5 sblt=559) RED CELL DISTRIBUTION WIDTH (BEAKER) (test 14.0 % 11.7-14.4 poce=217) PLATELET COUNT (BEAKER) (test yevl=686) 196 K/CU MM 150-450 MEAN PLATELET VOLUME (BEAKER) (test geut=842) 9.9 fL 9.4-12.3 NUCLEATED RED BLOOD CELLS (BEAKER) (test 0 /100 WBC 0-0 cczv=471) NEUTROPHILS RELATIVE PERCENT (BEAKER) (test 72 % qojv=113) LYMPHOCYTES RELATIVE PERCENT (BEAKER) (test 18 % wyfx=572) MONOCYTES RELATIVE PERCENT (BEAKER) (test 6 % bdfw=339) EOSINOPHILS RELATIVE PERCENT (BEAKER) (test 4 % aigf=739) BASOPHILS RELATIVE PERCENT (BEAKER) (test 1 % olof=308) NEUTROPHILS ABSOLUTE COUNT (BEAKER) (test 5.62 K/ L 1.56-6.13 rqeq=047) LYMPHOCYTES ABSOLUTE COUNT (BEAKER) (test 1.37 K/ L 1.18-3.74 btcc=141) MONOCYTES ABSOLUTE COUNT (BEAKER) (test 0.43 K/ L 0.24-0.36 bnmd=546) EOSINOPHILS ABSOLUTE COUNT (BEAKER) (test 0.28 K/ L 0.04-0.36 trau=969) BASOPHILS ABSOLUTE COUNT (BEAKER) (test 0.07 K/ L 0.01-0.08 vqlb=374) IMMATURE GRANULOCYTES-RELATIVE PERCENT (BEAKER) 0 % 0-1 (test dxuo=7192) ANTI-MITOCHONDRIAL AB, REFLEX TO [id number] 08:36:00 Test Item Value Reference Range Comments SCAN RESULT (test famr=[id number]) OSMOLALITY, [id number] 10:30:00 Test Item Value Reference Range Comments OSMOLALITY, SERUM (BEAKER) (test hhoz=117) 301 mOsm/kg 275-295 POCT-GLUCOSE [id number] 08:26:00 Test Item Value Reference Range Comments POC-GLUCOSE METER (BEAKER) 243 mg/dL 70-[address] [facility] [address] [facility] (test qotk=9840) [facility] [address] COMPREHENSIVE METABOLIC [id number] 08:05:00 Test Item Value Reference Range Comments TOTAL PROTEIN (BEAKER) 5.5 gm/dL 6.0-8.3 (test wqpg=911) ALBUMIN (BEAKER) (test 3.2 g/dL 3.5-5.0 qpzg=8981) ALKALINE PHOSPHATASE 75 U/L 40-150 (BEAKER) (test smnn=435) BILIRUBIN TOTAL (BEAKER) 0.9 mg/dL 0.2-1.2 (test rhqh=465) SODIUM (BEAKER) (test 132 meq/L 136-145 auoo=722) POTASSIUM (BEAKER) (test 4.3 meq/L 3.5-5.1 xdvx=442) CHLORIDE (BEAKER) (test 101 meq/L 98-107 kmoi=468) CO2 (BEAKER) (test 25 meq/L 22-29 awdd=986) BLOOD UREA NITROGEN 45 mg/dL 7-21 (BEAKER) (test jcck=278) CREATININE (BEAKER) (test 1.89 mg/dL 0.57-1.25 kxqb=887) GLUCOSE RANDOM (BEAKER) 241 mg/dL 70-105 (test xnoa=292) CALCIUM (BEAKER) (test 8.6 mg/dL 8.4-10.2 tyqs=616) AST (SGOT) (BEAKER) (test 19 U/L 5-34 kdls=548) ALT (SGPT) (BEAKER) (test 10 U/L 6-55 glrx=116) EGFR (BEAKER) (test 27 mL/min/1.73 sq m ESTIMATED GFR IS NOT ggqo=4696) ACCURATE CREATININE CLEARANCE IN PREDICTING GLOMERULAR FILTRATION RATE. ESTIMATED GFR IS NOT APPLICABLE FOR DIALYSIS PATIENTS. [id number] 08:02:00 Test Item Value Reference Range Comments PHOSPHORUS (BEAKER) (test clzo=674) 3.6 mg/dL 2.3-4.7 [id number] 08:02:00 Test Item Value Reference Range Comments MAGNESIUM (BEAKER) (test joht=696) 2.0 mg/dL 1.6-2.6 CBC W/PLT COUNT & AUTO [id number] 05:40:00 Test Item Value Reference Range Comments WHITE BLOOD CELL COUNT (BEAKER) (test slya=494) 5.7 K/ L 3.5-10.5 RED BLOOD CELL COUNT (BEAKER) (test uhdt=683) 3.76 M/ L 3.93-5.22 HEMOGLOBIN (BEAKER) (test yusi=180) 10.6 GM/DL 11.2-15.7 HEMATOCRIT (BEAKER) (test atoq=486) 32.9 % 34.1-44.9 MEAN CORPUSCULAR VOLUME (BEAKER) (test hbgc=000) 87.5 fL 79.4-94.8 MEAN CORPUSCULAR HEMOGLOBIN (BEAKER) (test 28.2 pg 25.6-32.2 gvmb=568) MEAN CORPUSCULAR HEMOGLOBIN CONC (BEAKER) (test 32.2 GM/DL 32.2-35.5 iebn=710) RED CELL DISTRIBUTION WIDTH (BEAKER) (test 14.2 % 11.7-14.4 esim=412) PLATELET COUNT (BEAKER) (test stur=613) 142 K/CU MM 150-450 MEAN PLATELET VOLUME (BEAKER) (test zotn=396) 9.8 fL 9.4-12.3 NUCLEATED RED BLOOD CELLS (BEAKER) (test 0 /100 WBC 0-0 wutz=615) NEUTROPHILS RELATIVE PERCENT (BEAKER) (test 70 % nfjz=977) LYMPHOCYTES RELATIVE PERCENT (BEAKER) (test 19 % eqch=835) MONOCYTES RELATIVE PERCENT (BEAKER) (test 7 % hdwh=810) EOSINOPHILS RELATIVE PERCENT (BEAKER) (test 3 % pegi=742) BASOPHILS RELATIVE PERCENT (BEAKER) (test 1 % hyck=959) NEUTROPHILS ABSOLUTE COUNT (BEAKER) (test 3.99 K/ L 1.56-6.13 vmdq=894) LYMPHOCYTES ABSOLUTE COUNT (BEAKER) (test 1.05 K/ L 1.18-3.74 uvpp=949) MONOCYTES ABSOLUTE COUNT (BEAKER) (test 0.40 K/ L 0.24-0.36 cbde=754) EOSINOPHILS ABSOLUTE COUNT (BEAKER) (test 0.16 K/ L 0.04-0.36 vzze=285) BASOPHILS ABSOLUTE COUNT (BEAKER) (test 0.04 K/ L 0.01-0.08 dnax=344) IMMATURE GRANULOCYTES-RELATIVE PERCENT (BEAKER) 0 % 0-1 (test myeo=3146) CALCIUM, [id number] 05:17:00 Test Item Value Reference Range Comments CALCIUM IONIZED (BEAKER) (test uojf=051) 1.06 mmol/L 1.12-1.27 PH, BLOOD (BEAKER) (test kfpd=0961) 7.41 U/S, RENAL, [id number] 03:59:00Reason for exam:->HEMALATHA/CKDShould this be performed at the bedside?->YesFINAL REPORT U/S, RENAL, COMPLETE CLINICAL INDICATION: HEMALATHA/CKD COMPARISON: None TECHNIQUE: The kidneys and urinary bladder were evaluated using real time lo scale and color Doppler sonography. FINDINGS:Right kidney: [...] not visualized. Small volume intra-abdominal ascites. Signed: [facility] Verified Date/Time: 11/24/2018 03:59:04 Reading Location: [address] Transitional Reading Room TROPOMALLORY [id number] 23:19:00 Test Item Value Reference Range Comments TROPONIN I (BEAKER) (test tvkr=450) < ng/mL 0.00-0.03 Troponin I (TnI) levels [...] acidosis, acute neurological disease, and persistent tachyarrhythmia.POCT-GLUCOSE [id number] 21:12:00 Test Item Value Reference Range Comments POC-GLUCOSE METER (BEAKER) 277 mg/dL 70-110 TESTED AT [address] (test dxvf=2639) [place] [address] PROTEIN, RANDOM [id number] 20:11:00 Test Item Value Reference Range Comments PROTEIN, URINE (BEAKER) (test xbxp=3526) 10 mg/dL 0-14 SODIUM, RANDOM [id number] 20:05:00 Test Item Value Reference Range Comments SODIUM URINE (BEAKER) (test ratg=640) < meq/L Reference Range: No NormalsPOCT-GLUCOSE [id number] 17:28:00 Test Item Value Reference Range Comments POC-GLUCOSE METER (BEAKER) 291 mg/dL 70-110 TESTED AT [address] (test oxsj=1763) [place] [address] POCT-GLUCOSE [id number] 14:02:00 Test Item Value Reference Range Comments POC-GLUCOSE METER (BEAKER) 148 mg/dL 70-110 TESTED AT [address] (test sfvd=6217) [place] [address] URINALYSIS W/ [id number] 13:32:00 Test Item Value Reference Range Comments COLOR (BEAKER) (test awsn=056) Yellow CLARITY (BEAKER) (test ihnt=062) Clear SPECIFIC GRAVITY UA (BEAKER) (test 1.015 1.001-1.035 dnvw=989) PH UA (BEAKER) (test dhkl=125) 5.0 5.0-8.0 PROTEIN UA (BEAKER) (test wumb=311) Negative Negative GLUCOSE UA (BEAKER) (test ukpz=982) Negative Negative KETONES UA (BEAKER) (test baef=060) Negative Negative BILIRUBIN UA (BEAKER) (test gzyv=508) Negative Negative BLOOD UA (BEAKER) (test vkcs=530) Negative Negative NITRITE UA (BEAKER) (test kwyy=163) Negative Negative LEUKOCYTE ESTERASE UA (BEAKER) (test Negative Negative gact=729) UROBILINOGEN UA (BEAKER) (test oujy=540) 0.2 mg/dL 0.2-1.0 RBC UA (BEAKER) (test jdkp=753) < /HPF WBC UA (BEAKER) (test elfi=546) 2 /HPF BACTERIA (BEAKER) (test awfl=494) Occasional SQUAMOUS EPITHELIAL (BEAKER) (test 19 /HPF uvir=353) HYALINE CASTS (BEAKER) (test husa=534) 5 /LPF AMORPHOUS CRYSTALS (BEAKER) (test Occasional ybjm=3916) SOURCE(BEAKER) (test mjwm=6592) Urine, Clean Catch U/S, ABDOMINAL, [id number] 13:29:00Abdomen limited area? Add comment if clarification [...] Valles Verified Date/Time: 11/23/2018 13:29:13 Reading Location: [place] [id number] Transitional Reading Room U/S, [id number] 13:01:00Reason for exam:->Therapeutic paracentesisFINAL REPORT Paracentesis dated 11/23/2018 Procedure: Ultrasound-guided paracentesis. Preprocedure diagnosis: Ascites Postprocedure diagnosis: Ascites Conscious sedation: None. Radiologist: Givoanni Haas M.D. Manufacturing Machine Operator: None Anesthesia: 1% Xylocaine mixed with sodium bicarbonate local anesthesia. Technique: After obtaining informed consent, ultrasound-guided paracentesis was performed under usual sterile technique. Using a 5 hungarian drainage catheter , puncture was made in the right lower quadrant abdomen. Approximately 16,200 cc of serous fluid was removed. Patient tolerated the procedure well without complication. Complication: None Graft/Implant: None Estimated Blood Loss: None Impression: Ultrasound-guided paracentesis. Signed: Giovanni Haas Verified Date/Time: 11/23/2018 13:01:25 Reading Location: [facility] [id number] Ortho Consult Reading Room Electronically signedby: GIOVANNI HAAS M.D. on 2018 01:01 PMCBC W/PLT COUNT & AUTO [id number] 08:55:00 Test Item Value Reference Range Comments WHITE BLOOD CELL COUNT (BEAKER) (test xixl=464) 5.7 K/ L 3.5-10.5 RED BLOOD CELL COUNT (BEAKER) (test evny=411) 3.72 M/ L 3.93-5.22 HEMOGLOBIN (BEAKER) (test ekpe=170) 10.5 GM/DL 11.2-15.7 HEMATOCRIT (BEAKER) (test ebee=224) 32.5 % 34.1-44.9 MEAN CORPUSCULAR VOLUME (BEAKER) (test pmby=114) 87.4 fL 79.4-94.8 MEAN CORPUSCULAR HEMOGLOBIN (BEAKER) (test 28.2 pg 25.6-32.2 wlng=747) MEAN CORPUSCULAR HEMOGLOBIN CONC (BEAKER) (test 32.3 GM/DL 32.2-35.5 chdp=413) RED CELL DISTRIBUTION WIDTH (BEAKER) (test 14.5 % 11.7-14.4 lrxf=000) PLATELET COUNT (BEAKER) (test mumv=949) 148 K/CU MM 150-450 MEAN PLATELET VOLUME (BEAKER) (test ehgg=082) 9.4 fL 9.4-12.3 NUCLEATED RED BLOOD CELLS (BEAKER) (test 0 /100 WBC 0-0 zher=034) NEUTROPHILS RELATIVE PERCENT (BEAKER) (test 63 % swci=129) LYMPHOCYTES RELATIVE PERCENT (BEAKER) (test 23 % jpar=420) MONOCYTES RELATIVE PERCENT (BEAKER) (test 8 % zjcz=059) EOSINOPHILS RELATIVE PERCENT (BEAKER) (test 5 % rqfa=220) BASOPHILS RELATIVE PERCENT (BEAKER) (test 1 % lyyx=278) NEUTROPHILS ABSOLUTE COUNT (BEAKER) (test 3.61 K/ L 1.56-6.13 orat=780) LYMPHOCYTES ABSOLUTE COUNT (BEAKER) (test 1.29 K/ L 1.18-3.74 gbzb=519) MONOCYTES ABSOLUTE COUNT (BEAKER) (test 0.47 K/ L 0.24-0.36 envm=933) EOSINOPHILS ABSOLUTE COUNT (BEAKER) (test 0.28 K/ L 0.04-0.36 evsg=991) BASOPHILS ABSOLUTE COUNT (BEAKER) (test 0.05 K/ L 0.01-0.08 cpfn=208) IMMATURE GRANULOCYTES-RELATIVE PERCENT (BEAKER) 0 % 0-1 (test ljkm=6254) POCT-GLUCOSE [id number] 07:43:00 Test Item Value Reference Range Comments POC-GLUCOSE METER (BEAKER) 196 mg/dL 70-[address] [facility] [address] [facility] (test cpmq=5777) [facility] [address] [id number] 06:53:00 Test Item Value Reference Range Comments FERRITIN (BEAKER) (test qdlb=322) 52 ng/mL 5-275 HEPATITIS B [id number] 06:21:00 Test Item Value Reference Range Comments HEPATITIS B CORE TOTAL ANTIBODY (BEAKER) (test Nonreactive Nonreactive mfxq=587) HEPATITIS B SURFACE ANTIBODY (BEAKER) (test < mIU/mL <8.0 ygvz=837) HEPATITIS B SURFACE ANTIGEN (2) (BEAKER) (test Nonreactive Nonreactive updc=8688) HEPATITIS C [id number] 06:20:00 Test Item Value Reference Range Comments HEPATITIS C ANTIBODY (BEAKER) (test qemw=722) Nonreactive Nonreactive HEPATITIS A [id number] 06:20:00 Test Item Value Reference Range Comments HEPATITIS A IGM ANTIBODY (BEAKER) (test Nonreactive Nonreactive rmmw=492) HEPATITIS A IGG ANTIBODY (BEAKER) (test Nonreactive Nonreactive gvrs=4272) ALPHA FETOPROTEIN (AFP), TUMOR [id number] 06:14:00 Test Item Value Reference Range Comments ALPHA-FETOPROTEIN (BEAKER) (test bmrk=2081) 2.1 ng/mL <10.0 COMPREHENSIVE METABOLIC [id number] 06:01:00 Test Item Value Reference Range Comments TOTAL PROTEIN (BEAKER) 5.9 gm/dL 6.0-8.3 (test xcji=486) ALBUMIN (BEAKER) (test 2.9 g/dL 3.5-5.0 jtgs=9941) ALKALINE PHOSPHATASE 96 U/L 40-150 (BEAKER) (test odwn=305) BILIRUBIN TOTAL (BEAKER) 0.5 mg/dL 0.2-1.2 (test sfsy=677) SODIUM (BEAKER) (test 132 meq/L 136-145 erfi=603) POTASSIUM (BEAKER) (test 4.3 meq/L 3.5-5.1 juvu=996) CHLORIDE (BEAKER) (test 100 meq/L 98-107 izsa=093) CO2 (BEAKER) (test 26 meq/L 22-29 hroo=305) BLOOD UREA NITROGEN 50 mg/dL 7-21 (BEAKER) (test qggf=335) CREATININE (BEAKER) (test 2.27 mg/dL 0.57-1.25 soik=708) GLUCOSE RANDOM (BEAKER) 219 mg/dL 70-105 (test brrs=496) CALCIUM (BEAKER) (test 8.8 mg/dL 8.4-10.2 flms=962) AST (SGOT) (BEAKER) (test 22 U/L 5-34 udmq=593) ALT (SGPT) (BEAKER) (test 15 U/L 6-55 wedf=688) EGFR (BEAKER) (test 22 mL/min/1.73 sq m ESTIMATED GFR IS NOT eonc=3785) ACCURATE CREATININE CLEARANCE IN PREDICTING GLOMERULAR FILTRATION RATE. ESTIMATED GFR IS NOT APPLICABLE FOR DIALYSIS PATIENTS. IRON, TIBC, % SAT. (WITHOUT FERRITIN)2018-11-23 05:55:00 Test Item Value Reference Range Comments IRON (BEAKER) (test wftk=786) 46.0 ug/dL 40.0-160.0 TOTAL IRON BINDING CAPACITY (BEAKER) (test 269 ug/dL 250-450 siao=693) IRON % SATURATION (2) (BEAKER) (test xgdc=8077) 17 % 20-55 [id number] 05:54:00 Test Item Value Reference Range Comments ALPHA-1 ANTITRYPSIN (BEAKER) (test zims=912) 202.70 mg/dL 90.00-200.00 COMPREHENSIVE METABOLIC [id number] 00:16:00 Test Item Value Reference Range Comments TOTAL PROTEIN (BEAKER) 6.8 gm/dL 6.0-8.3 (test siii=448) ALBUMIN (BEAKER) (test 3.3 g/dL 3.5-5.0 yxwk=7628) ALKALINE PHOSPHATASE 114 U/L 40-150 (BEAKER) (test dbhb=164) BILIRUBIN TOTAL (BEAKER) 0.6 mg/dL 0.2-1.2 (test chou=342) SODIUM (BEAKER) (test 130 meq/L 136-145 sgty=067) POTASSIUM (BEAKER) (test 4.4 meq/L 3.5-5.1 oxah=642) CHLORIDE (BEAKER) (test 99 meq/L 98-107 umbk=707) CO2 (BEAKER) (test 22 meq/L 22-29 inaj=015) BLOOD UREA NITROGEN 46 mg/dL 7-21 (BEAKER) (test chwa=708) CREATININE (BEAKER) (test 2.40 mg/dL 0.57-1.25 rupb=362) GLUCOSE RANDOM (BEAKER) 153 mg/dL 70-105 (test uwfg=884) CALCIUM (BEAKER) (test 9.1 mg/dL 8.4-10.2 xlrd=092) AST (SGOT) (BEAKER) (test 25 U/L 5-34 onue=498) ALT (SGPT) (BEAKER) (test 17 U/L 6-55 ahgq=298) EGFR (BEAKER) (test 21 mL/min/1.73 sq m ESTIMATED GFR IS NOT rjhk=6209) ACCURATE CREATININE CLEARANCE IN PREDICTING GLOMERULAR FILTRATION RATE. ESTIMATED GFR IS NOT APPLICABLE FOR DIALYSIS PATIENTS. [id number] 23:52:00 Test Item Value Reference Range Comments PROTIME (BEAKER) (test ehjr=327) 13.3 seconds 11.7-14.7 INR (BEAKER) (test lwuz=433) 1.0 <=5.9 PARTIAL THROMBOPLASTIN TIME (BEAKER) (test 26.9 seconds 22.5-36.0 ppaa=923) RECOMMENDED COUMADIN/WARFARIN INR THERAPY RANGESSTANDARD DOSE: 2.0 - 3.0 Includes: PROPHYLAXIS forvenous thrombosis, systemic embolization; TREATMENT for venous thrombosis and/or pulmonary embolus.HIGH RISK: Target INR is 2.5-3.5 for patients with mechanical heart valves.POCT-GLUCOSE [id number] 21:25:00 Test Item Value Reference Range Comments POC-GLUCOSE METER (BEAKER) 178 mg/dL 70-[address] [facility] [address] [facility] (test gawc=3706) [facility] [id number]
[2019-12-21 08:20] LABS: MPV 6.8 fL (7.6-11.3)
[2019-12-21 08:27] VITALS: BP 129/49; TEMP 98.6; O2SAT 97; BMI 43.7
[2019-12-21 08:57] LABS: Platelet Estimate ADEQ
[2019-12-21] MEDS ORDERED: ALBUMIN HUMAN 25% 200 ML IV ONE (10:27)
--- NOTE | 2019-12-21 10:55 | RAD REPORT ---
EXAM DESCRIPTION: US - Paracentesis Proc Guidance - 12/21/2019 10:15 am CLINICAL HISTORY: Liver disease with ascites FINDINGS: The risks, benefits and alternatives to the procedure were explained to the patient and in formed consent obtained. The skin and subcutaneous tissues were anesthetized with Lidocaine. Under sonographic guidance an 8 F rench catheter was placed into the left lower quadrant. 8 liters of yellow fluid was removed and sent to the lab. The patient experienced no immediate complication. IMPRESSION: Paracentesis
[2019-12-21 13:49] LABS: Appearance SLT. TURBID (CLEAR); Body Fluid Source PERITONEAL; Color of fluid Orange (COLORLESS)
[2019-12-21 13:50] LABS: Body Fluid WBC 101 /mm^3
== END 2019-12-21 12:05 | disposition home or self-care (01) ==
LOC: DS 07:09
PROVIDERS: ATTEND Internal Medicine Hepatology
DX: R18.8 Other ascites (principal)
CPT/HCPCS: 36415; 89050; 85049; 85610; 82565; 85730; 96365; 49083; P9047

== ENCOUNTER 2020-01-05 02:38 | Inpatient (IN) | payer OTHER ==
--- OUTSIDE RECORDS SUMMARY | 2020-01-05 02:52 | XMS REPORT ---
:1960 Author Organization [facility] Address [address] [place] [address] Dr. Melton [address] [place] [id number] Care Team Providers Name Role Phone SHALINI [...] Comments SODIUM (BEAKER) (test 139 meq/L 136-145 fswr=432) POTASSIUM (BEAKER) (test 3.5 meq/L 3.5-5.1 ysmu=675) CHLORIDE (BEAKER) (test 97 meq/L 98-107 sxko=957) CO2 (BEAKER) (test nfud=089) 35 meq/L 22-29 BLOOD UREA NITROGEN (BEAKER) 22 mg/dL 7-21 (test znty=518) CREATININE (BEAKER) (test 1.77 mg/dL 0.57-1.25 zgyq=517) GLUCOSE RANDOM (BEAKER) 348 mg/dL 70-105 (test hpfq=513) CALCIUM (BEAKER) (test 8.7 mg/dL 8.4-10.2 vtqh=092) EGFR (BEAKER) (test 29 mL/min/1.73 sq m ESTIMATED GFR IS NOT muwt=0583) ACCURATE CREATININE CLEARANCE IN PREDICTING GLOMERULAR FILTRATION RATE. ESTIMATED GFR IS NOT APPLICABLE FOR DIALYSIS PATIENTS. [employer] ID - BSALPHA FETOPROTEIN (AFP), TUMOR [id number] 15:33:00 Test Item Value Reference Range Comments ALPHA-FETOPROTEIN (BEAKER) (test cysk=3005) 2.8 ng/mL <10.0 [employer] ID - TENZIN CHEPATIC FUNCTION [id number] 15:24:00 Test Item Value Reference Range Comments TOTAL PROTEIN (BEAKER) (test yquh=522) 6.2 gm/dL 6.0-8.3 ALBUMIN (BEAKER) (test tntm=1198) 2.7 g/dL 3.5-5.0 BILIRUBIN TOTAL (BEAKER) (test bsjw=390) 1.2 mg/dL 0.2-1.2 BILIRUBIN DIRECT (BEAKER) (test uqwe=438) 0.6 mg/dL 0.1-0.5 ALKALINE PHOSPHATASE (BEAKER) (test glxz=751) 132 U/L 40-150 AST (SGOT) (BEAKER) (test itxd=717) 51 U/L 5-34 ALT (SGPT) (BEAKER) (test lafx=620) 29 U/L 6-55 [employer] ID - BSPROTHROMBIN [id number] 14:49:00 Test Item Value Reference Range Comments PROTIME (BEAKER) (test qgcp=308) 14.3 seconds 11.9-14.2 INR (BEAKER) (test btim=199) 1.1 <=5.9 Effective 04/01/2019: PT Reference Range ChangeNew: 11.9-14.2 Previous: 11.7- 14.7RECOMMENDED COUMADIN/WARFARIN INR THERAPY RANGESSTANDARD DOSE: 2.0-3.0 Includes: PROPHYLAXIS for venous thrombosis, systemic embolization; TREATMENT for venous thrombosis and/or pulmonary embolus.HIGH RISK: Target INR is2.5-3.5 for patients wiht mechanical heart valves.CBC W/PLT COUNT & AUTO [id number] 14:36:00 Test Item Value Reference Range Comments WHITE BLOOD CELL COUNT (BEAKER) (test ulik=912) 5.9 K/ L 3.5-10.5 RED BLOOD CELL COUNT (BEAKER) (test wcxe=381) 3.53 M/ L 3.93-5.22 HEMOGLOBIN (BEAKER) (test xdqf=934) 9.0 GM/DL 11.2-15.7 HEMATOCRIT (BEAKER) (test twdm=972) 30.1 % 34.1-44.9 MEAN CORPUSCULAR VOLUME (BEAKER) (test iubm=371) 85.3 fL 79.4-94.8 MEAN CORPUSCULAR HEMOGLOBIN (BEAKER) (test 25.5 pg 25.6-32.2 qnwu=460) MEAN CORPUSCULAR HEMOGLOBIN CONC (BEAKER) (test 29.9 GM/DL 32.2-35.5 ggxh=478) RED CELL DISTRIBUTION WIDTH (BEAKER) (test 17.3 % 11.7-14.4 glsy=408) PLATELET COUNT (BEAKER) (test oecs=390) 204 K/CU MM 150-450 MEAN PLATELET VOLUME (BEAKER) (test hncc=131) 9.6 fL 9.4-12.3 NUCLEATED RED BLOOD CELLS (BEAKER) (test 0 /100 WBC 0-0 mnxf=068) NEUTROPHILS RELATIVE PERCENT (BEAKER) (test 62 % zrjl=540) LYMPHOCYTES RELATIVE PERCENT (BEAKER) (test 28 % curv=102) MONOCYTES RELATIVE PERCENT (BEAKER) (test 7 % xfxp=588) EOSINOPHILS RELATIVE PERCENT (BEAKER) (test 3 % zgxg=999) BASOPHILS RELATIVE PERCENT (BEAKER) (test 1 % oant=024) NEUTROPHILS ABSOLUTE COUNT (BEAKER) (test 3.65 K/ L 1.56-6.13 rjrj=622) LYMPHOCYTES ABSOLUTE COUNT (BEAKER) (test 1.64 K/ L 1.18-3.74 wejc=783) MONOCYTES ABSOLUTE COUNT (BEAKER) (test 0.41 K/ L 0.24-0.36 sywh=558) EOSINOPHILS ABSOLUTE COUNT (BEAKER) (test 0.17 K/ L 0.04-0.36 bove=506) BASOPHILS ABSOLUTE COUNT (BEAKER) (test 0.05 K/ L 0.01-0.08 rduk=487) IMMATURE GRANULOCYTES-RELATIVE PERCENT (BEAKER) 0 % 0-1 (test cuwh=7608) RAD, CHEST, 2 [id number] 11:02:00Reason for exam:->effusions Rt> LtShould this be performed at the bedside?->NoAddendum BeginsREPORT STATUS:A Addendum: The exam title should state as follows: Chest PA and lateral The first sentence in the findings section should read as follows : PA and lateral chest radiographs were obtained. Signed: Dilip Valles Verified Date/Time: 11/23/2019 11:02:54 Reading Location: [facility] Radiology Reading RoomAddendum EndsFINAL REPORT CHEST ONE [...] [place] Verified Date/Time: 11/08/2019 17:39:12 Reading Location: [facility] C013T Transitional Reading Room POCT-GLUCOSE [id number] 18:02:00 Test Item Value Reference Range Comments POC-GLUCOSE METER (BEAKER) 265 mg/dL 70-110 : TESTED AT [address] (test ynbb=4325) [facility], [address]: [employer] EY=[id number] for MCGHEE, MARCOS POCT-GLUCOSE [id number] 13:18:00 Test Item Value Reference Range Comments POC-GLUCOSE METER (BEAKER) 234 mg/dL 70-110 : TESTED AT [address] (test ttjf=9247) [facility], [address]: [employer] RF=[id number] for MCGHEE, MARCOS POCT-GLUCOSE [id number] 09:59:00 Test Item Value Reference Range Comments POC-GLUCOSE METER (BEAKER) 250 mg/dL 70-110 : TESTED AT [address] (test kfkf=1316) [place] [address]: [employer] [id number] for MCGHEE, MARCOS BLOOD GAS, [id number] 06:56:00 Test Item Value Reference Range Comments PH VENOUS (BEAKER) (test aetg=788) 7.38 7.32-7.42 PCO2 VENOUS (BEAKER) (test gmyz=288) 67 mmHg 41-51 PO2 VENOUS (BEAKER) (test afzt=324) 57 mmHg 25-40 O2 SATURATION VENOUS (BEAKER) (test pqpm=425) 88.2 % 40.0-70.0 HCO3 VENOUS (BEAKER) (test qhwe=422) 39 mmol/L 21-29 BASE EXCESS VENOUS (BEAKER) (test jdfq=293) 11.8 mmol/L -2.0-3.0 PATIENT TEMPERATURE (BEAKER) (test ejzy=6491) 37.0 C [id number] 06:30:00 Test Item Value Reference Range Comments MAGNESIUM (BEAKER) (test zwrx=958) 1.7 mg/dL 1.6-2.6 COMPREHENSIVE METABOLIC [id number] 06:30:00 Test Item Value Reference Range Comments TOTAL PROTEIN (BEAKER) 4.9 gm/dL 6.0-8.3 (test hcpl=223) ALBUMIN (BEAKER) (test 2.3 g/dL 3.5-5.0 ruwc=2935) ALKALINE PHOSPHATASE 74 U/L 40-150 (BEAKER) (test filj=234) BILIRUBIN TOTAL (BEAKER) 1.1 mg/dL 0.2-1.2 (test lahk=864) SODIUM (BEAKER) (test 137 meq/L 136-145 yapl=592) POTASSIUM (BEAKER) (test 3.7 meq/L 3.5-5.1 yofa=918) CHLORIDE (BEAKER) (test 97 meq/L 98-107 roqa=195) CO2 (BEAKER) (test 36 meq/L 22-29 rrku=820) BLOOD UREA NITROGEN 16 mg/dL 7-21 (BEAKER) (test oony=227) CREATININE (BEAKER) (test 1.57 mg/dL 0.57-1.25 gocl=785) GLUCOSE RANDOM (BEAKER) 284 mg/dL 70-105 (test fahc=183) CALCIUM (BEAKER) (test 7.9 mg/dL 8.4-10.2 crqu=584) AST (SGOT) (BEAKER) (test 22 U/L 5-34 owfx=155) ALT (SGPT) (BEAKER) (test 14 U/L 6-55 ykqq=024) EGFR (BEAKER) (test 33 mL/min/1.73 sq m ESTIMATED GFR IS NOT gscu=6663) ACCURATE CREATININE CLEARANCE IN PREDICTING GLOMERULAR FILTRATION RATE. ESTIMATED GFR IS NOT APPLICABLE FOR DIALYSIS PATIENTS. [id number] 06:29:00 Test Item Value Reference Range Comments PHOSPHORUS (BEAKER) (test xuur=796) 2.0 mg/dL 2.3-4.7 B-TYPE NATRIURETIC FACTOR (BNP)2019-11-10 06:24:00 Test Item Value Reference Range Comments B-TYPE NATRIURETIC PEPTIDE (BEAKER) (test 2022 pg/mL 0-100 gwkv=254) CALCIUM, [id number] 06:23:00 Test Item Value Reference Range Comments CALCIUM IONIZED (BEAKER) (test abnf=922) 1.05 mmol/L 1.12-1.27 PH, BLOOD (BEAKER) (test kwhl=2608) 7.41 CBC W/PLT COUNT & AUTO [id number] 06:03:00 Test Item Value Reference Range Comments WHITE BLOOD CELL COUNT (BEAKER) (test etmv=335) 4.3 K/ L 3.5-10.5 RED BLOOD CELL COUNT (BEAKER) (test houg=247) 3.14 M/ L 3.93-5.22 HEMOGLOBIN (BEAKER) (test khtg=715) 8.1 GM/DL 11.2-15.7 HEMATOCRIT (BEAKER) (test fdop=836) 26.9 % 34.1-44.9 MEAN CORPUSCULAR VOLUME (BEAKER) (test rwnw=625) 85.7 fL 79.4-94.8 MEAN CORPUSCULAR HEMOGLOBIN (BEAKER) (test 25.8 pg 25.6-32.2 rhth=324) MEAN CORPUSCULAR HEMOGLOBIN CONC (BEAKER) (test 30.1 GM/DL 32.2-35.5 lvig=257) RED CELL DISTRIBUTION WIDTH (BEAKER) (test 15.6 % 11.7-14.4 fiix=193) PLATELET COUNT (BEAKER) (test qqmj=562) 79 K/CU MM 150-450 MEAN PLATELET VOLUME (BEAKER) (test xlga=476) 9.5 fL 9.4-12.3 NUCLEATED RED BLOOD CELLS (BEAKER) (test 0 /100 WBC 0-0 fise=838) NEUTROPHILS RELATIVE PERCENT (BEAKER) (test 52 % xncr=298) LYMPHOCYTES RELATIVE PERCENT (BEAKER) (test 33 % gxgw=513) MONOCYTES RELATIVE PERCENT (BEAKER) (test 7 % qsnq=838) EOSINOPHILS RELATIVE PERCENT (BEAKER) (test 7 % vfbt=796) BASOPHILS RELATIVE PERCENT (BEAKER) (test 1 % hlwl=293) NEUTROPHILS ABSOLUTE COUNT (BEAKER) (test 2.22 K/ L 1.56-6.13 lhht=445) LYMPHOCYTES ABSOLUTE COUNT (BEAKER) (test 1.41 K/ L 1.18-3.74 xaul=460) MONOCYTES ABSOLUTE COUNT (BEAKER) (test ejfz=112) 0.32 K/ L 0.24-0.36 EOSINOPHILS ABSOLUTE COUNT (BEAKER) (test 0.29 K/ L 0.04-0.36 wtnv=199) BASOPHILS ABSOLUTE COUNT (BEAKER) (test jwqy=410) 0.05 K/ L 0.01-0.08 IMMATURE GRANULOCYTES-RELATIVE PERCENT (BEAKER) 0 % 0-1 (test aklj=8300) U/S, ABDOMINAL, [id number] 05:29:00U/S doppler for TIPS interrogationAbdomen limited area? [...] including TIPS evaluation, as described. Signed: Latasha Khoury MDReport Verified Date/Time: 11/10/2019 05:29:45 Electronically signed by: LATASHA KHOURY M.D.on 11/10/2019 05:29 AMPOCT-GLUCOSE [id number] 21:05:00 Test Item Value Reference Range Comments POC-GLUCOSE METER (BEAKER) 341 mg/dL 70-110 : TESTED AT [address] (test hjkq=5075) [facility], [facility]: [employer] Layer/[employer] OA=[id number] for DWIGHT HASSAN POCT-GLUCOSE [id number] 18:27:00 Test Item Value Reference Range Comments POC-GLUCOSE METER (BEAKER) 314 mg/dL 70-110 : TESTED AT [address] (test dpcr=5922) [facility], [address]: [employer] Layer/[employer] GP=[id number] for MARCOS MCGHEE BLOOD [id number] 18:17:00 Test Item Value Reference Range Comments CULTURE (BEAKER) (test hxug=4461) No growth in 5 days BLOOD [id number] 18:17:00 Test Item Value Reference Range Comments CULTURE (BEAKER) (test rlya=6348) No growth in 5 days POCT-GLUCOSE [id number] 16:56:00 Test Item Value Reference Range Comments POC-GLUCOSE METER (BEAKER) 258 mg/dL 70-110 : TESTED AT [address] (test wwfh=6636) [facility], [address]: [employer] Layer/[employer] HS=[id number] for COLTON MCGHEEE POCT-GLUCOSE [id number] 08:44:00 Test Item Value Reference Range Comments POC-GLUCOSE METER (BEAKER) 213 mg/dL 70-110 : TESTED AT [facility] [address] (test nnll=8512) [place], [address]: [employer] Layer/[employer] CW=[id number] for MARCOS MCGHEE COMPREHENSIVE METABOLIC [id number] 04:45:00 Test Item Value Reference Range Comments TOTAL PROTEIN (BEAKER) 5.1 gm/dL 6.0-8.3 (test ddue=312) ALBUMIN (BEAKER) (test 2.5 g/dL 3.5-5.0 qzjk=5086) ALKALINE PHOSPHATASE 74 U/L 40-150 (BEAKER) (test gxfr=728) BILIRUBIN TOTAL (BEAKER) 1.1 mg/dL 0.2-1.2 (test gzle=232) SODIUM (BEAKER) (test 140 meq/L 136-145 asku=225) POTASSIUM (BEAKER) (test 4.1 meq/L 3.5-5.1 rbfe=555) CHLORIDE (BEAKER) (test 99 meq/L 98-107 cblv=263) CO2 (BEAKER) (test 37 meq/L 22-29 wyyt=092) BLOOD UREA NITROGEN 21 mg/dL 7-21 (BEAKER) (test dnul=050) CREATININE (BEAKER) (test 1.60 mg/dL 0.57-1.25 xlop=821) GLUCOSE RANDOM (BEAKER) 267 mg/dL 70-105 (test kvam=738) CALCIUM (BEAKER) (test 7.9 mg/dL 8.4-10.2 bajr=522) AST (SGOT) (BEAKER) (test 25 U/L 5-34 mpfl=436) ALT (SGPT) (BEAKER) (test 14 U/L 6-55 rnly=720) EGFR (BEAKER) (test 33 mL/min/1.73 sq m ESTIMATED GFR IS NOT ibij=0484) ACCURATE CREATININE CLEARANCE IN PREDICTING GLOMERULAR FILTRATION RATE. ESTIMATED GFR IS NOT APPLICABLE FOR DIALYSIS PATIENTS. [id number] 04:38:00 Test Item Value Reference Range Comments MAGNESIUM (BEAKER) (test ncup=599) 1.6 mg/dL 1.6-2.6 CBC W/PLT COUNT & AUTO [id number] 04:25:00 Test Item Value Reference Range Comments WHITE BLOOD CELL COUNT (BEAKER) (test zhrr=005) 4.6 K/ L 3.5-10.5 RED BLOOD CELL COUNT (BEAKER) (test yizh=491) 3.04 M/ L 3.93-5.22 HEMOGLOBIN (BEAKER) (test sleu=562) 7.9 GM/DL 11.2-15.7 HEMATOCRIT (BEAKER) (test psdq=819) 26.1 % 34.1-44.9 MEAN CORPUSCULAR VOLUME (BEAKER) (test pcdl=337) 85.9 fL 79.4-94.8 MEAN CORPUSCULAR HEMOGLOBIN (BEAKER) (test 26.0 pg 25.6-32.2 aapz=962) MEAN CORPUSCULAR HEMOGLOBIN CONC (BEAKER) (test 30.3 GM/DL 32.2-35.5 bnwm=607) RED CELL DISTRIBUTION WIDTH (BEAKER) (test 15.5 % 11.7-14.4 pyoa=716) PLATELET COUNT (BEAKER) (test bgnn=146) 79 K/CU MM 150-450 MEAN PLATELET VOLUME (BEAKER) (test ysbw=948) 9.6 fL 9.4-12.3 NUCLEATED RED BLOOD CELLS (BEAKER) (test 0 /100 WBC 0-0 ffse=011) NEUTROPHILS RELATIVE PERCENT (BEAKER) (test 53 % ssgq=576) LYMPHOCYTES RELATIVE PERCENT (BEAKER) (test 33 % qcbe=024) MONOCYTES RELATIVE PERCENT (BEAKER) (test 8 % zlqr=529) EOSINOPHILS RELATIVE PERCENT (BEAKER) (test 5 % viwr=401) BASOPHILS RELATIVE PERCENT (BEAKER) (test 1 % acft=459) NEUTROPHILS ABSOLUTE COUNT (BEAKER) (test 2.43 K/ L 1.56-6.13 fcui=418) LYMPHOCYTES ABSOLUTE COUNT (BEAKER) (test 1.51 K/ L 1.18-3.74 ojoa=707) MONOCYTES ABSOLUTE COUNT (BEAKER) (test trle=652) 0.36 K/ L 0.24-0.36 EOSINOPHILS ABSOLUTE COUNT (BEAKER) (test 0.23 K/ L 0.04-0.36 jyes=894) BASOPHILS ABSOLUTE COUNT (BEAKER) (test agjh=394) 0.06 K/ L 0.01-0.08 IMMATURE GRANULOCYTES-RELATIVE PERCENT (BEAKER) 0 % 0-1 (test rzsd=6061) POCT-GLUCOSE [id number] 20:56:00 Test Item Value Reference Range Comments POC-GLUCOSE METER (BEAKER) 277 mg/dL 70-110 : TESTED AT [address] (test vxpk=5910) [facility], [address]: [employer] Layer/[employer] WG=[id number] for CHRISS BAUMAN POCT-GLUCOSE [id number] 17:07:00 Test Item Value Reference Range Comments POC-GLUCOSE METER (BEAKER) 283 mg/dL 70-110 : TESTED AT [address] (test hjxm=8292) [facility], [address]: [employer] Layer/[employer] YZ=[id number] for QUEEN TRENT POCT-GLUCOSE [id number] 12:20:00 Test Item Value Reference Range Comments POC-GLUCOSE METER (BEAKER) 233 mg/dL 70-110 : TESTED AT [address] (test miec=1994) [facility], [address]: [employer] Layer/[employer] OS=[id number] for QUEEN TRENT POCT-GLUCOSE [id number] 07:31:00 Test Item Value Reference Range Comments POC-GLUCOSE METER (BEAKER) 251 mg/dL 70-110 : TESTED AT [address] (test newj=3595) [facility], [address]: [employer] Layer/[employer] PF=[id number] for QUEEN TRENT [id number] 06:14:00 Test Item Value Reference Range Comments MAGNESIUM (BEAKER) (test qfur=347) 1.9 mg/dL 1.6-2.6 COMPREHENSIVE METABOLIC [id number] 06:14:00 Test Item Value Reference Range Comments TOTAL PROTEIN (BEAKER) 5.5 gm/dL 6.0-8.3 (test rfxb=152) ALBUMIN (BEAKER) (test 2.8 g/dL 3.5-5.0 ugaf=3353) ALKALINE PHOSPHATASE 81 U/L 40-150 (BEAKER) (test zxfh=725) BILIRUBIN TOTAL (BEAKER) 1.3 mg/dL 0.2-1.2 (test hxsy=085) SODIUM (BEAKER) (test 137 meq/L 136-145 roux=443) POTASSIUM (BEAKER) (test 4.5 meq/L 3.5-5.1 brro=369) CHLORIDE (BEAKER) (test 99 meq/L 98-107 qbsc=185) CO2 (BEAKER) (test 32 meq/L 22-29 ygfa=073) BLOOD UREA NITROGEN 25 mg/dL 7-21 (BEAKER) (test otxc=825) CREATININE (BEAKER) (test 1.63 mg/dL 0.57-1.25 psyg=484) GLUCOSE RANDOM (BEAKER) 247 mg/dL 70-105 (test ckto=397) CALCIUM (BEAKER) (test 8.0 mg/dL 8.4-10.2 shfi=196) AST (SGOT) (BEAKER) (test 28 U/L 5-34 tbhm=266) ALT (SGPT) (BEAKER) (test 16 U/L 6-55 ypii=601) EGFR (BEAKER) (test 32 mL/min/1.73 sq m ESTIMATED GFR IS NOT gnuc=7676) ACCURATE CREATININE CLEARANCE IN PREDICTING GLOMERULAR FILTRATION RATE. ESTIMATED GFR IS NOT APPLICABLE FOR DIALYSIS PATIENTS. CBC W/PLT COUNT & AUTO [id number] 05:49:00 Test Item Value Reference Range Comments WHITE BLOOD CELL COUNT (BEAKER) (test tkuu=553) 4.7 K/ L 3.5-10.5 RED BLOOD CELL COUNT (BEAKER) (test sgzl=496) 3.12 M/ L 3.93-5.22 HEMOGLOBIN (BEAKER) (test ejtz=293) 8.0 GM/DL 11.2-15.7 HEMATOCRIT (BEAKER) (test ypmj=439) 27.1 % 34.1-44.9 MEAN CORPUSCULAR VOLUME (BEAKER) (test zmfl=224) 86.9 fL 79.4-94.8 MEAN CORPUSCULAR HEMOGLOBIN (BEAKER) (test 25.6 pg 25.6-32.2 bgja=457) MEAN CORPUSCULAR HEMOGLOBIN CONC (BEAKER) (test 29.5 GM/DL 32.2-35.5 bbun=115) RED CELL DISTRIBUTION WIDTH (BEAKER) (test 15.5 % 11.7-14.4 rwqa=791) PLATELET COUNT (BEAKER) (test niyb=186) 99 K/CU MM 150-450 MEAN PLATELET VOLUME (BEAKER) (test asnj=657) 9.1 fL 9.4-12.3 NUCLEATED RED BLOOD CELLS (BEAKER) (test 0 /100 WBC 0-0 zgwi=118) NEUTROPHILS RELATIVE PERCENT (BEAKER) (test 48 % wmwi=276) LYMPHOCYTES RELATIVE PERCENT (BEAKER) (test 35 % durn=194) MONOCYTES RELATIVE PERCENT (BEAKER) (test 10 % kgmk=096) EOSINOPHILS RELATIVE PERCENT (BEAKER) (test 6 % lnvb=141) BASOPHILS RELATIVE PERCENT (BEAKER) (test 1 % kyzv=534) NEUTROPHILS ABSOLUTE COUNT (BEAKER) (test 2.26 K/ L 1.56-6.13 wkwb=932) LYMPHOCYTES ABSOLUTE COUNT (BEAKER) (test 1.64 K/ L 1.18-3.74 hbau=155) MONOCYTES ABSOLUTE COUNT (BEAKER) (test ecgq=720) 0.47 K/ L 0.24-0.36 EOSINOPHILS ABSOLUTE COUNT (BEAKER) (test 0.29 K/ L 0.04-0.36 jsya=159) BASOPHILS ABSOLUTE COUNT (BEAKER) (test rxik=164) 0.06 K/ L 0.01-0.08 IMMATURE GRANULOCYTES-RELATIVE PERCENT (BEAKER) 0 % 0-1 (test knas=7767) POCT-GLUCOSE [id number] 20:57:00 Test Item Value Reference Range Comments POC-GLUCOSE METER (BEAKER) 237 mg/dL 70-110 : Notified RN/MD: TESTED AT (test ejoe=6117) [address], [address]: [employer] HW=[id number] for CHRISS BAUMAN POCT-GLUCOSE [id number] 16:58:00 Test Item Value Reference Range Comments POC-GLUCOSE METER (BEAKER) 275 mg/dL 70-110 : TESTED AT [address] (test rckc=5552) [facility], [address]: [employer] FL=[id number] for QUEEN TRENT POCT-GLUCOSE [id number] 12:18:00 Test Item Value Reference Range Comments POC-GLUCOSE METER (BEAKER) 272 mg/dL 70-110 : TESTED AT [address] (test ulbz=1864) [facility], [address]: [employer] JA=[id number] for QUEEN TRENT POCT-GLUCOSE [id number] 07:49:00 Test Item Value Reference Range Comments POC-GLUCOSE METER (BEAKER) 233 mg/dL 70-110 : TESTED AT [facility] [address] (test cwdh=1632) [facility], [address]: [employer] PB=[id number] for QUEEN TRENT COMPREHENSIVE METABOLIC [id number] 06:26:00 Test Item Value Reference Range Comments TOTAL PROTEIN (BEAKER) 5.6 gm/dL 6.0-8.3 (test dcot=642) ALBUMIN (BEAKER) (test 2.9 g/dL 3.5-5.0 bant=6256) ALKALINE PHOSPHATASE 86 U/L 40-150 (BEAKER) (test hfzp=335) BILIRUBIN TOTAL (BEAKER) 1.2 mg/dL 0.2-1.2 (test rdws=998) SODIUM (BEAKER) (test 137 meq/L 136-145 ejln=868) POTASSIUM (BEAKER) (test 4.3 meq/L 3.5-5.1 lwrq=303) CHLORIDE (BEAKER) (test 99 meq/L 98-107 lqfo=750) CO2 (BEAKER) (test 34 meq/L 22-29 zhmn=368) BLOOD UREA NITROGEN 27 mg/dL 7-21 (BEAKER) (test zniz=852) CREATININE (BEAKER) (test 1.76 mg/dL 0.57-1.25 rqdv=026) GLUCOSE RANDOM (BEAKER) 246 mg/dL 70-105 (test rwtf=787) CALCIUM (BEAKER) (test 8.1 mg/dL 8.4-10.2 mqpa=281) AST (SGOT) (BEAKER) (test 26 U/L 5-34 fzyn=301) ALT (SGPT) (BEAKER) (test 15 U/L 6-55 jdza=839) EGFR (BEAKER) (test 29 mL/min/1.73 sq m ESTIMATED GFR IS NOT hsql=4814) ACCURATE CREATININE CLEARANCE IN PREDICTING GLOMERULAR FILTRATION RATE. ESTIMATED GFR IS NOT APPLICABLE FOR DIALYSIS PATIENTS. [id number] 06:13:00 Test Item Value Reference Range Comments MAGNESIUM (BEAKER) (test ygcz=602) 2.1 mg/dL 1.6-2.6 CBC W/PLT COUNT & AUTO [id number] 05:34:00 Test Item Value Reference Range Comments WHITE BLOOD CELL COUNT (BEAKER) (test ubsv=235) 4.7 K/ L 3.5-10.5 RED BLOOD CELL COUNT (BEAKER) (test njom=877) 2.99 M/ L 3.93-5.22 HEMOGLOBIN (BEAKER) (test fqej=873) 7.9 GM/DL 11.2-15.7 HEMATOCRIT (BEAKER) (test xwug=430) 25.9 % 34.1-44.9 MEAN CORPUSCULAR VOLUME (BEAKER) (test mbtv=141) 86.6 fL 79.4-94.8 MEAN CORPUSCULAR HEMOGLOBIN (BEAKER) (test 26.4 pg 25.6-32.2 idxw=686) MEAN CORPUSCULAR HEMOGLOBIN CONC (BEAKER) (test 30.5 GM/DL 32.2-35.5 vwpl=413) RED CELL DISTRIBUTION WIDTH (BEAKER) (test 15.3 % 11.7-14.4 zrts=844) PLATELET COUNT (BEAKER) (test eaga=050) 103 K/CU MM 150-450 MEAN PLATELET VOLUME (BEAKER) (test mluj=808) 9.3 fL 9.4-12.3 NUCLEATED RED BLOOD CELLS (BEAKER) (test 0 /100 WBC 0-0 vvkv=543) NEUTROPHILS RELATIVE PERCENT (BEAKER) (test 51 % tjfc=593) LYMPHOCYTES RELATIVE PERCENT (BEAKER) (test 32 % kkvu=754) MONOCYTES RELATIVE PERCENT (BEAKER) (test 10 % wjbs=427) EOSINOPHILS RELATIVE PERCENT (BEAKER) (test 6 % brvz=954) BASOPHILS RELATIVE PERCENT (BEAKER) (test 2 % koxl=653) NEUTROPHILS ABSOLUTE COUNT (BEAKER) (test 2.38 K/ L 1.56-6.13 ffrs=301) LYMPHOCYTES ABSOLUTE COUNT (BEAKER) (test 1.52 K/ L 1.18-3.74 bevf=232) MONOCYTES ABSOLUTE COUNT (BEAKER) (test 0.47 K/ L 0.24-0.36 azzg=402) EOSINOPHILS ABSOLUTE COUNT (BEAKER) (test 0.26 K/ L 0.04-0.36 hpqf=600) BASOPHILS ABSOLUTE COUNT (BEAKER) (test 0.07 K/ L 0.01-0.08 reul=855) IMMATURE GRANULOCYTES-RELATIVE PERCENT (BEAKER) 0 % 0-1 (test qjbv=2825) POCT-GLUCOSE [id number] 20:47:00 Test Item Value Reference Range Comments POC-GLUCOSE METER (BEAKER) 283 mg/dL 70-110 : Notified RN/MD: TESTED AT (test txrn=6607) [address], [address]: [employer] [id number] for CHRISS BAUMAN, CHEST, 1 VIEW, NON [id number] 19:35:00Reason for exam:->pleural effusion, shortness of breathShould [...] MDReport Verified Date/Time: 01/2020 19:35:04 Reading Location: [address] Transitional Reading Room POCT- GLUCOSE [id number] 17:32:00 Test Item Value Reference Range Comments POC-GLUCOSE METER (BEAKER) 285 mg/dL 70-110 : TESTED AT [address] (test scyy=9206) [facility], [address]: [employer] [id number] for VIKASH SYLVIA POCT-GLUCOSE [id number] 07:57:00 Test Item Value Reference Range Comments POC-GLUCOSE METER (BEAKER) 257 mg/dL 70-110 : TESTED AT [address] (test rzxy=1337) [facility], [address]: [employer] [id number] for VIKASH SYLVIA [id number] 06:35:00 Test Item Value Reference Range Comments MAGNESIUM (BEAKER) (test tdlc=741) 1.6 mg/dL 1.6-2.6 COMPREHENSIVE METABOLIC [id number] 06:35:00 Test Item Value Reference Range Comments TOTAL PROTEIN (BEAKER) 5.5 gm/dL 6.0-8.3 (test nqtq=316) ALBUMIN (BEAKER) (test 2.9 g/dL 3.5-5.0 qkqo=0353) ALKALINE PHOSPHATASE 85 U/L 40-150 (BEAKER) (test fhgw=038) BILIRUBIN TOTAL (BEAKER) 1.2 mg/dL 0.2-1.2 (test whgd=002) SODIUM (BEAKER) (test 139 meq/L 136-145 aglq=325) POTASSIUM (BEAKER) (test 3.6 meq/L 3.5-5.1 oxch=072) CHLORIDE (BEAKER) (test 99 meq/L 98-107 crzl=873) CO2 (BEAKER) (test 36 meq/L 22-29 nahg=914) BLOOD UREA NITROGEN 29 mg/dL 7-21 (BEAKER) (test qlqr=552) CREATININE (BEAKER) (test 1.65 mg/dL 0.57-1.25 gfbv=452) GLUCOSE RANDOM (BEAKER) 261 mg/dL 70-105 (test ulim=364) CALCIUM (BEAKER) (test 8.0 mg/dL 8.4-10.2 kgbq=955) AST (SGOT) (BEAKER) (test 27 U/L 5-34 safe=589) ALT (SGPT) (BEAKER) (test 17 U/L 6-55 wphu=746) EGFR (BEAKER) (test 32 mL/min/1.73 sq m ESTIMATED GFR IS NOT lgbx=9046) ACCURATE CREATININE CLEARANCE IN PREDICTING GLOMERULAR FILTRATION RATE. ESTIMATED GFR IS NOT APPLICABLE FOR DIALYSIS PATIENTS. CALCIUM, [id number] 06:02:00 Test Item Value Reference Range Comments CALCIUM IONIZED (BEAKER) (test orvm=937) 1.04 mmol/L 1.12-1.27 PH, BLOOD (BEAKER) (test ftga=3056) 7.38 [id number] 05:22:00 Test Item Value Reference Range Comments PARTIAL THROMBOPLASTIN TIME (BEAKER) (test 42.6 seconds 22.5-36.0 jurf=594) PROTHROMBIN TIME/[id number] 05:21:00 Test Item Value Reference Range Comments PROTIME (BEAKER) (test mqmr=717) 15.2 seconds 11.9-14.2 INR (BEAKER) (test icax=245) 1.2 <=5.9 Effective 04/01/2019: PT Reference Range ChangeNew: 11.9-14.2 Previous: 11.7- 14.7RECOMMENDED COUMADIN/WARFARIN INR THERAPY RANGESSTANDARD DOSE: 2.0-3.0 Includes: PROPHYLAXIS for venous thrombosis, systemic embolization; TREATMENT for venous thrombosis and/or pulmonary embolus.HIGH RISK: Target INR is2.5-3.5 for patients wiht mechanical heart valves.CBC W/PLT COUNT & AUTO [id number] 05:13:00 Test Item Value Reference Range Comments WHITE BLOOD CELL COUNT (BEAKER) (test ahep=029) 4.4 K/ L 3.5-10.5 RED BLOOD CELL COUNT (BEAKER) (test hsza=659) 2.94 M/ L 3.93-5.22 HEMOGLOBIN (BEAKER) (test qrsl=458) 7.7 GM/DL 11.2-15.7 HEMATOCRIT (BEAKER) (test cjky=016) 25.3 % 34.1-44.9 MEAN CORPUSCULAR VOLUME (BEAKER) (test zgrh=088) 86.1 fL 79.4-94.8 MEAN CORPUSCULAR HEMOGLOBIN (BEAKER) (test 26.2 pg 25.6-32.2 xsui=912) MEAN CORPUSCULAR HEMOGLOBIN CONC (BEAKER) (test 30.4 GM/DL 32.2-35.5 ulzu=566) RED CELL DISTRIBUTION WIDTH (BEAKER) (test 15.2 % 11.7-14.4 zrwn=384) PLATELET COUNT (BEAKER) (test cwvl=831) 109 K/CU MM 150-450 MEAN PLATELET VOLUME (BEAKER) (test anxu=400) 9.2 fL 9.4-12.3 NUCLEATED RED BLOOD CELLS (BEAKER) (test 0 /100 WBC 0-0 brzn=011) NEUTROPHILS RELATIVE PERCENT (BEAKER) (test 52 % tziz=926) LYMPHOCYTES RELATIVE PERCENT (BEAKER) (test 32 % irll=922) MONOCYTES RELATIVE PERCENT (BEAKER) (test 8 % jxpc=113) EOSINOPHILS RELATIVE PERCENT (BEAKER) (test 6 % eheu=939) BASOPHILS RELATIVE PERCENT (BEAKER) (test 1 % gxrh=583) NEUTROPHILS ABSOLUTE COUNT (BEAKER) (test 2.26 K/ L 1.56-6.13 rvmk=879) LYMPHOCYTES ABSOLUTE COUNT (BEAKER) (test 1.41 K/ L 1.18-3.74 yzko=737) MONOCYTES ABSOLUTE COUNT (BEAKER) (test 0.36 K/ L 0.24-0.36 kgbb=362) EOSINOPHILS ABSOLUTE COUNT (BEAKER) (test 0.26 K/ L 0.04-0.36 wqrv=319) BASOPHILS ABSOLUTE COUNT (BEAKER) (test 0.06 K/ L 0.01-0.08 mztp=565) IMMATURE GRANULOCYTES-RELATIVE PERCENT (BEAKER) 0 % 0-1 (test infe=1220) POCT-GLUCOSE [id number] 21:33:00 Test Item Value Reference Range Comments POC-GLUCOSE METER (BEAKER) 251 mg/dL 70-110 : TESTED AT [address] (test izlw=9783) [facility], [address]: [employer] [id number] for DWIGHT HASSAN BODY FLUID CELL COUNT WITH [id number] 19:02:00 Test Item Value Reference Range Comments APPEARANCE FLUID (BEAKER) (test wqvr=173) Hazy Clear COLOR FLUID (BEAKER) (test pyxo=133) Yellow Colorless, Straw RBC FLUID (BEAKER) (test ipyv=097) 5000 /cu mm <=1 ADJUSTED WBC FLUID (BEAKER) (test cjnl=9336) 168 /cu mm <=5 LINING CELLS (BEAKER) (test cmrr=4908) 3 /cu mm <=1 NEUTROPHILS FLUID (BEAKER) (test ztjs=8273) 2 % LYMPHS FLUID (BEAKER) (test nxqs=265) 14 % MONO/MACROPHAGE FLUID (BEAKER) (test kzig=264) 84 % EOSINOPHILS FLUID (BEAKER) (test neqa=932) 0 % BASO FLUID (BEAKER) (test bvtl=194) 0 % CONTAINER BODY FLUID (BEAKER) (test aptf=9538) EDTA Tube POCT-GLUCOSE [id number] 18:32:00 Test Item Value Reference Range Comments POC-GLUCOSE METER (BEAKER) 256 mg/dL 70-110 : TESTED AT [address] (test omya=1481) 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 Approximately 3 L of straw -colored fluid was removed. The catheter was removed without immediate complication. A sample was sent for analysis. Steriledressing was placed. IMPRESSION: Successful ultrasound-guided diagnostic and therapeutic paracentesis. Signed: Deshaun Doan MDReport Verified Date/Time: 11/05/2019 18: 24:03 Reading Location: [place] [address] Angio Body Reading Room PUL PERF IMAGING, PARTIC, [id number] 14:47:00FINAL REPORT PROCEDURE: V/Q LUNG SCAN CPT CODE: 36152 INDICATION: Positive d-dimer, PE suspected, intermediate probability, [...] MDReport Verified Date/Time: 2019 14:47:43 Reading Location: [address] Reading Room POCT- GLUCOSE [id number] 12:25:00 Test Item Value Reference Range Comments POC-GLUCOSE METER (BEAKER) 284 mg/dL 70-110 : TESTED AT [facility] [address] [facility] (test mhgm=2582) [facility], [address]: [employer] [id number]=[id number] for SYLVIA SUH CBC W/PLT COUNT & AUTO [id number] 12:08:00 Test Item Value Reference Range Comments WHITE BLOOD CELL COUNT (BEAKER) (test xzpc=585) 5.8 K/ L 3.5-10.5 RED BLOOD CELL COUNT (BEAKER) (test brxz=746) 3.17 M/ L 3.93-5.22 HEMOGLOBIN (BEAKER) (test gywd=154) 8.3 GM/DL 11.2-15.7 HEMATOCRIT (BEAKER) (test bizu=060) 27.3 % 34.1-44.9 MEAN CORPUSCULAR VOLUME (BEAKER) (test lfkf=461) 86.1 fL 79.4-94.8 MEAN CORPUSCULAR HEMOGLOBIN (BEAKER) (test 26.2 pg 25.6-32.2 pqcv=216) MEAN CORPUSCULAR HEMOGLOBIN CONC (BEAKER) (test 30.4 GM/DL 32.2-35.5 srct=560) RED CELL DISTRIBUTION WIDTH (BEAKER) (test 15.3 % 11.7-14.4 ufhd=081) PLATELET COUNT (BEAKER) (test wjhj=933) 128 K/CU MM 150-450 MEAN PLATELET VOLUME (BEAKER) (test xqri=521) 8.9 fL 9.4-12.3 NUCLEATED RED BLOOD CELLS (BEAKER) (test 0 /100 WBC 0-0 xswp=290) NEUTROPHILS RELATIVE PERCENT (BEAKER) (test 51 % zarm=417) LYMPHOCYTES RELATIVE PERCENT (BEAKER) (test 32 % gidc=745) MONOCYTES RELATIVE PERCENT (BEAKER) (test 8 % aphw=297) EOSINOPHILS RELATIVE PERCENT (BEAKER) (test 7 % nglt=650) BASOPHILS RELATIVE PERCENT (BEAKER) (test 2 % ahou=210) NEUTROPHILS ABSOLUTE COUNT (BEAKER) (test 2.96 K/ L 1.56-6.13 vegs=408) LYMPHOCYTES ABSOLUTE COUNT (BEAKER) (test 1.81 K/ L 1.18-3.74 pvha=852) MONOCYTES ABSOLUTE COUNT (BEAKER) (test 0.47 K/ L 0.24-0.36 fsod=262) EOSINOPHILS ABSOLUTE COUNT (BEAKER) (test 0.41 K/ L 0.04-0.36 fwdm=952) BASOPHILS ABSOLUTE COUNT (BEAKER) (test 0.09 K/ L 0.01-0.08 zher=336) IMMATURE GRANULOCYTES-RELATIVE PERCENT (BEAKER) 0 % 0-1 (test uexd=2892) COMPREHENSIVE METABOLIC [id number] 11:58:00 Test Item Value Reference Range Comments TOTAL PROTEIN (BEAKER) 5.4 gm/dL 6.0-8.3 (test outn=555) ALBUMIN (BEAKER) (test 2.6 g/dL 3.5-5.0 keaa=8913) ALKALINE PHOSPHATASE 98 U/L 40-150 (BEAKER) (test mpjb=765) BILIRUBIN TOTAL (BEAKER) 1.2 mg/dL 0.2-1.2 (test pyhw=599) SODIUM (BEAKER) (test 139 meq/L 136-145 swfw=911) POTASSIUM (BEAKER) (test 3.5 meq/L 3.5-5.1 pmwl=674) CHLORIDE (BEAKER) (test 98 meq/L 98-107 iwsj=028) CO2 (BEAKER) (test 36 meq/L 22-29 bqdy=981) BLOOD UREA NITROGEN 33 mg/dL 7-21 (BEAKER) (test iytd=013) CREATININE (BEAKER) (test 1.85 mg/dL 0.57-1.25 wymm=141) GLUCOSE RANDOM (BEAKER) 285 mg/dL 70-105 (test phcs=523) CALCIUM (BEAKER) (test 8.0 mg/dL 8.4-10.2 kcbh=189) AST (SGOT) (BEAKER) (test 30 U/L 5-34 esds=342) ALT (SGPT) (BEAKER) (test 18 U/L 6-55 jxjb=679) EGFR (BEAKER) (test 28 mL/min/1.73 sq m ESTIMATED GFR IS NOT eciq=7532) ACCURATE CREATININE CLEARANCE IN PREDICTING GLOMERULAR FILTRATION RATE. ESTIMATED GFR IS NOT APPLICABLE FOR DIALYSIS PATIENTS. [id number] 11:55:00 Test Item Value Reference Range Comments MAGNESIUM (BEAKER) (test cxsp=662) 1.5 mg/dL 1.6-2.6 [id number] 11:45:00 Test Item Value Reference Range Comments PROTIME (BEAKER) (test gffo=320) 14.9 seconds 11.9-14.2 INR (BEAKER) (test ipyx=292) 1.2 <=5.9 PARTIAL THROMBOPLASTIN TIME (BEAKER) (test 45.9 seconds 22.5-36.0 hcgl=315) Effective 04/01/2019: PT Reference Range ChangeNew: 11.9-14.2 Previous: 11.7- 14.7RECOMMENDED COUMADIN/WARFARIN INR THERAPY RANGESSTANDARD DOSE: 2.0-3.0 Includes: PROPHYLAXIS for venous thrombosis, systemic embolization; TREATMENT for venous thrombosis and/or pulmonary embolus.HIGH RISK: Target INR is2.5-3.5 for patients wiht mechanical heart valves.POCT-GLUCOSE [id number] 08:23:00 Test Item Value Reference Range Comments POC-GLUCOSE METER (BEAKER) 223 mg/dL 70-110 : TESTED AT [facility] [address] [facility] (test kcgh=4703) [facility], [address]: [employer] EE=[id number] for VIKASH SYLVIA POCT-GLUCOSE [id number] 16:52:00 Test Item Value Reference Range Comments POC-GLUCOSE METER (BEAKER) 292 mg/dL 70-110 : TESTED AT [facility] [address] [facility] (test rxvs=0205) [facility], [address]: [employer] [id number] for QUEEN TRENT POCT-GLUCOSE [id number] 12:25:00 Test Item Value Reference Range Comments POC-GLUCOSE METER (BEAKER) 295 mg/dL 70-110 : TESTED AT [facility] [address] [facility] (test wwwa=7000) [facility], [address]: [employer] WY=[id number] for QUEEN TRENT POCT-GLUCOSE [id number] 07:22:00 Test Item Value Reference Range Comments POC-GLUCOSE METER (BEAKER) 247 mg/dL 70-110 : TESTED AT [facility] [address] [facility] (test nhcz=5061) [facility], [address]: [employer] [id number] for QUEEN TRENT BASIC METABOLIC [id number] 06:43:00 Test Item Value Reference Range Comments SODIUM (BEAKER) (test 136 meq/L 136-145 rqpt=583) POTASSIUM (BEAKER) (test 3.5 meq/L 3.5-5.1 xwsx=773) CHLORIDE (BEAKER) (test 100 meq/L 98-107 uuzt=062) CO2 (BEAKER) (test 30 meq/L 22-29 jlxf=569) BLOOD UREA NITROGEN 43 mg/dL 7-21 (BEAKER) (test lgvq=085) CREATININE (BEAKER) (test 1.82 mg/dL 0.57-1.25 eyoy=066) GLUCOSE RANDOM (BEAKER) 246 mg/dL 70-105 (test chup=301) CALCIUM (BEAKER) (test 8.0 mg/dL 8.4-10.2 uxpd=271) EGFR (BEAKER) (test 28 mL/min/1.73 sq m ESTIMATED GFR IS NOT lqyk=6273) ACCURATE CREATININE CLEARANCE IN PREDICTING GLOMERULAR FILTRATION RATE. ESTIMATED GFR IS NOT APPLICABLE FOR DIALYSIS PATIENTS. [id number] 06:30:00 Test Item Value Reference Range Comments PHOSPHORUS (BEAKER) (test ybmk=329) 3.2 mg/dL 2.3-4.7 [id number] 06:30:00 Test Item Value Reference Range Comments MAGNESIUM (BEAKER) (test avvp=598) 1.7 mg/dL 1.6-2.6 B-TYPE NATRIURETIC FACTOR (BNP)2019-11-04 06:18:00 Test Item Value Reference Range Comments B-TYPE NATRIURETIC PEPTIDE (BEAKER) (test 2226 pg/mL 0-100 xgkn=693) CALCIUM, [id number] 05:54:00 Test Item Value Reference Range Comments CALCIUM IONIZED (BEAKER) (test qqya=582) 1.05 mmol/L 1.12-1.27 PH, BLOOD (BEAKER) (test fzcq=4564) 7.35 CBC W/PLT COUNT & AUTO [id number] 05:53:00 Test Item Value Reference Range Comments WHITE BLOOD CELL COUNT (BEAKER) (test lybv=258) 5.5 K/ L 3.5-10.5 RED BLOOD CELL COUNT (BEAKER) (test hmba=734) 2.88 M/ L 3.93-5.22 HEMOGLOBIN (BEAKER) (test cvmy=155) 7.6 GM/DL 11.2-15.7 HEMATOCRIT (BEAKER) (test dbtm=065) 24.8 % 34.1-44.9 MEAN CORPUSCULAR VOLUME (BEAKER) (test yndj=235) 86.1 fL 79.4-94.8 MEAN CORPUSCULAR HEMOGLOBIN (BEAKER) (test 26.4 pg 25.6-32.2 asrt=675) MEAN CORPUSCULAR HEMOGLOBIN CONC (BEAKER) (test 30.6 GM/DL 32.2-35.5 nigx=372) RED CELL DISTRIBUTION WIDTH (BEAKER) (test 15.4 % 11.7-14.4 qaia=490) PLATELET COUNT (BEAKER) (test ayzn=665) 130 K/CU MM 150-450 MEAN PLATELET VOLUME (BEAKER) (test rjlh=627) 9.0 fL 9.4-12.3 NUCLEATED RED BLOOD CELLS (BEAKER) (test 0 /100 WBC 0-0 nfqt=026) NEUTROPHILS RELATIVE PERCENT (BEAKER) (test 53 % xfyh=687) LYMPHOCYTES RELATIVE PERCENT (BEAKER) (test 30 % kyyr=311) MONOCYTES RELATIVE PERCENT (BEAKER) (test 9 % peio=201) EOSINOPHILS RELATIVE PERCENT (BEAKER) (test 6 % eahd=362) BASOPHILS RELATIVE PERCENT (BEAKER) (test 1 % twye=307) NEUTROPHILS ABSOLUTE COUNT (BEAKER) (test 2.91 K/ L 1.56-6.13 viqk=465) LYMPHOCYTES ABSOLUTE COUNT (BEAKER) (test 1.63 K/ L 1.18-3.74 chvr=292) MONOCYTES ABSOLUTE COUNT (BEAKER) (test 0.50 K/ L 0.24-0.36 umun=502) EOSINOPHILS ABSOLUTE COUNT (BEAKER) (test 0.34 K/ L 0.04-0.36 xctf=693) BASOPHILS ABSOLUTE COUNT (BEAKER) (test 0.07 K/ L 0.01-0.08 voyx=128) IMMATURE GRANULOCYTES-RELATIVE PERCENT (BEAKER) 0 % 0-1 (test zbsc=3670) POCT-GLUCOSE [id number] 21:40:00 Test Item Value Reference Range Comments POC-GLUCOSE METER (BEAKER) 265 mg/dL 70-110 : TESTED AT [facility] [address] [facility] (test wsww=0259) [facility], [address]: [employer] AW=[id number] for DWIGHT HASSAN POCT-GLUCOSE [id number] 16:52:00 Test Item Value Reference Range Comments POC-GLUCOSE METER (BEAKER) 296 mg/dL 70-110 : TESTED AT [facility] [address] [facility] (test huvz=9529) [facility], [address]: [employer] BK=[id number] for QUEEN TRENT [id number] 15:42:00 Test Item Value Reference Range Comments D-DIMER QUANTITATIVE (BEAKER) (test rpsr=656) 2.22 MG/L FEU <0.50 Intended Use: The [...] within 95-100% range.RAD, CHEST, 1 VIEW, NON [id number] 14:54:00Reason for exam:->hypoxiaShould this be performed at the bedside?->YesFINAL REPORT RAD , CHEST, 1 VIEW, NON DEPT INDICATION: hypoxia COMPARISON: 01 November 2019 FINDINGS: Portable frontal view of the chest. IMPRESSION: Support Lines: None. Lungsand pleura: Moderate right effusion. Associated relaxation atelectasis. No pneumothorax.Heart and mediastinum: Stable contours. Additional findings: None. Signed: JR Zavaleta Robert MDReport Verified Date/Time: 11/03/2019 14:54:27 [facility] POCT- GLUCOSE [id number] 12:24:00 Test Item Value Reference Range Comments POC-GLUCOSE METER (BEAKER) 304 mg/dL 70-110 : TESTED AT [facility] [address] [facility] (test wool=0672) [facility], [address]: [employer] JM=[id number] for NATHAN MARCANO POCT-GLUCOSE [id number] 07:21:00 Test Item Value Reference Range Comments POC-GLUCOSE METER (BEAKER) 254 mg/dL 70-110 : TESTED AT [place] [id number] [facility] (test ndjy=4665) [facility], [address]: [employer] RL=[id number] for NATHAN MARCANO COMPREHENSIVE METABOLIC [id number] 05:39:00 Test Item Value Reference Range Comments TOTAL PROTEIN (BEAKER) 5.6 gm/dL 6.0-8.3 (test akhn=271) ALBUMIN (BEAKER) (test 2.8 g/dL 3.5-5.0 lned=4072) ALKALINE PHOSPHATASE 107 U/L 40-150 (BEAKER) (test lwpn=683) BILIRUBIN TOTAL (BEAKER) 1.7 mg/dL 0.2-1.2 (test cxut=203) SODIUM (BEAKER) (test 134 meq/L 136-145 leiq=053) POTASSIUM (BEAKER) (test 4.1 meq/L 3.5-5.1 xmuv=093) CHLORIDE (BEAKER) (test 100 meq/L 98-107 yxoj=671) CO2 (BEAKER) (test 28 meq/L 22-29 kqxa=035) BLOOD UREA NITROGEN 50 mg/dL 7-21 (BEAKER) (test bevo=746) CREATININE (BEAKER) (test 1.93 mg/dL 0.57-1.25 tvpe=600) GLUCOSE RANDOM (BEAKER) 300 mg/dL 70-105 (test iqbw=981) CALCIUM (BEAKER) (test 8.4 mg/dL 8.4-10.2 uxei=914) AST (SGOT) (BEAKER) (test 37 U/L 5-34 gyxb=426) ALT (SGPT) (BEAKER) (test 24 U/L 6-55 nvqp=116) EGFR (BEAKER) (test 26 mL/min/1.73 sq m ESTIMATED GFR IS NOT hpkd=0611) ACCURATE CREATININE CLEARANCE IN PREDICTING GLOMERULAR FILTRATION RATE. ESTIMATED GFR IS NOT APPLICABLE FOR DIALYSIS PATIENTS. [id number] 05:31:00 Test Item Value Reference Range Comments PHOSPHORUS (BEAKER) (test lvjv=009) 3.6 mg/dL 2.3-4.7 [id number] 05:31:00 Test Item Value Reference Range Comments MAGNESIUM (BEAKER) (test sate=572) 2.0 mg/dL 1.6-2.6 BILIRUBIN, [id number] 05:31:00 Test Item Value Reference Range Comments BILIRUBIN DIRECT (BEAKER) (test cdzt=225) 0.8 mg/dL 0.1-0.5 CBC W/PLT COUNT & AUTO [id number] 05:10:00 Test Item Value Reference Range Comments WHITE BLOOD CELL COUNT (BEAKER) (test wbre=071) 6.1 K/ L 3.5-10.5 RED BLOOD CELL COUNT (BEAKER) (test zdwx=491) 2.83 M/ L 3.93-5.22 HEMOGLOBIN (BEAKER) (test qpjz=660) 7.4 GM/DL 11.2-15.7 HEMATOCRIT (BEAKER) (test tbfm=363) 24.2 % 34.1-44.9 MEAN CORPUSCULAR VOLUME (BEAKER) (test nyza=770) 85.5 fL 79.4-94.8 MEAN CORPUSCULAR HEMOGLOBIN (BEAKER) (test 26.1 pg 25.6-32.2 chxq=092) MEAN CORPUSCULAR HEMOGLOBIN CONC (BEAKER) (test 30.6 GM/DL 32.2-35.5 xixj=460) RED CELL DISTRIBUTION WIDTH (BEAKER) (test 15.4 % 11.7-14.4 fkyg=745) PLATELET COUNT (BEAKER) (test eeoj=475) 147 K/CU MM 150-450 MEAN PLATELET VOLUME (BEAKER) (test zmbw=254) 9.5 fL 9.4-12.3 NUCLEATED RED BLOOD CELLS (BEAKER) (test 0 /100 WBC 0-0 uaos=130) NEUTROPHILS RELATIVE PERCENT (BEAKER) (test 66 % dixa=941) LYMPHOCYTES RELATIVE PERCENT (BEAKER) (test 20 % obch=443) MONOCYTES RELATIVE PERCENT (BEAKER) (test 9 % aovt=485) EOSINOPHILS RELATIVE PERCENT (BEAKER) (test 4 % zbgw=042) BASOPHILS RELATIVE PERCENT (BEAKER) (test 1 % pcie=810) NEUTROPHILS ABSOLUTE COUNT (BEAKER) (test 4.02 K/ L 1.56-6.13 njsg=603) LYMPHOCYTES ABSOLUTE COUNT (BEAKER) (test 1.22 K/ L 1.18-3.74 gyww=998) MONOCYTES ABSOLUTE COUNT (BEAKER) (test 0.52 K/ L 0.24-0.36 gxrx=967) EOSINOPHILS ABSOLUTE COUNT (BEAKER) (test 0.21 K/ L 0.04-0.36 tlmo=955) BASOPHILS ABSOLUTE COUNT (BEAKER) (test 0.08 K/ L 0.01-0.08 jzzq=988) IMMATURE GRANULOCYTES-RELATIVE PERCENT (BEAKER) 0 % 0-1 (test xunf=5257) CALCIUM, [id number] 04:59:00 Test Item Value Reference Range Comments CALCIUM IONIZED (BEAKER) (test qpad=379) 1.12 mmol/L 1.12-1.27 PH, BLOOD (BEAKER) (test yoab=3972) 7.37 POCT-GLUCOSE [id number] 20:53:00 Test Item Value Reference Range Comments POC-GLUCOSE METER (BEAKER) 338 mg/dL 70-110 : TESTED AT [address] (test armu=2974) [facility], [address]: [employer] IA=[id number] for DEJUAN REINOSO POCT-GLUCOSE [id number] 17:43:00 Test Item Value Reference Range Comments POC-GLUCOSE METER (BEAKER) 304 mg/dL 70-110 : TESTED AT [address] (test iybv=9551) [facility], [address]: [employer] AB=[id number] for EMILY DRISCOLL POCT-GLUCOSE [id number] 15:13:00 Test Item Value Reference Range Comments POC-GLUCOSE METER (BEAKER) 261 mg/dL 70-110 : TESTED AT [address] (test qepb=2816) [facility], [address]: [employer] [id number] for EMILY DRISCOLL POCT-GLUCOSE [id number] 14:56:00 Test Item Value Reference Range Comments POC-GLUCOSE METER (BEAKER) 153 mg/dL 70-110 : TESTED AT [facility] [address] [facility] (test mvcy=8577) [facility], [address]: [employer] FK=[id number] for EMILY DRISCOLL COMPREHENSIVE METABOLIC [id number] 05:00:00 Test Item Value Reference Range Comments TOTAL PROTEIN (BEAKER) 6.0 gm/dL 6.0-8.3 (test eokf=782) ALBUMIN (BEAKER) (test 3.0 g/dL 3.5-5.0 uetb=3726) ALKALINE PHOSPHATASE 122 U/L 40-150 (BEAKER) (test biop=237) BILIRUBIN TOTAL (BEAKER) 2.1 mg/dL 0.2-1.2 (test afyc=714) SODIUM (BEAKER) (test 136 meq/L 136-145 zwpf=566) POTASSIUM (BEAKER) (test 4.4 meq/L 3.5-5.1 rfex=023) CHLORIDE (BEAKER) (test 102 meq/L 98-107 bhsj=660) CO2 (BEAKER) (test 28 meq/L 22-29 hhvn=789) BLOOD UREA NITROGEN 60 mg/dL 7-21 (BEAKER) (test thfw=966) CREATININE (BEAKER) (test 2.12 mg/dL 0.57-1.25 jqzu=957) GLUCOSE RANDOM (BEAKER) 162 mg/dL 70-105 (test slva=542) CALCIUM (BEAKER) (test 8.9 mg/dL 8.4-10.2 edgb=079) AST (SGOT) (BEAKER) (test 44 U/L 5-34 aymh=682) ALT (SGPT) (BEAKER) (test 26 U/L 6-55 rgpi=705) EGFR (BEAKER) (test 24 mL/min/1.73 sq m ESTIMATED GFR IS NOT tinq=0217) ACCURATE CREATININE CLEARANCE IN PREDICTING GLOMERULAR FILTRATION RATE. ESTIMATED GFR IS NOT APPLICABLE FOR DIALYSIS PATIENTS. Specimen slightly [id number] 04:54:00 Test Item Value Reference Range Comments MAGNESIUM (BEAKER) (test gffv=299) 2.3 mg/dL 1.6-2.6 [id number] 04:54:00 Test Item Value Reference Range Comments PHOSPHORUS (BEAKER) (test csjf=997) 3.6 mg/dL 2.3-4.7 URIC [id number] 04:54:00 Test Item Value Reference Range Comments URIC ACID (BEAKER) (test tlao=284) 11.6 mg/dL 2.6-7.2 Specimen slightly ictericB-TYPE NATRIURETIC FACTOR (BNP)2019-11-02 04:50:00 Test Item Value Reference Range Comments B-TYPE NATRIURETIC PEPTIDE (BEAKER) (test 2041 pg/mL 0-100 ouxl=822) [id number] 04:36:00 Test Item Value Reference Range Comments AMMONIA (BEAKER) (test flib=723) 50 mol/L 18-72 CALCIUM, [id number] 04:36:00 Test Item Value Reference Range Comments CALCIUM IONIZED (BEAKER) (test ompx=555) 1.14 mmol/L 1.12-1.27 PH, BLOOD (BEAKER) (test gcik=6266) 7.35 CALCIUM, [id number] 04:36:00 Test Item Value Reference Range Comments CALCIUM IONIZED (BEAKER) (test zqkp=456) 1.11 mmol/L 1.12-1.27 PH, BLOOD (BEAKER) (test qysa=7047) 7.37 CBC W/PLT COUNT & AUTO [id number] 04:28:00 Test Item Value Reference Range Comments WHITE BLOOD CELL COUNT (BEAKER) (test zxyl=972) 5.8 K/ L 3.5-10.5 RED BLOOD CELL COUNT (BEAKER) (test iopy=460) 2.77 M/ L 3.93-5.22 HEMOGLOBIN (BEAKER) (test xcxc=279) 7.2 GM/DL 11.2-15.7 HEMATOCRIT (BEAKER) (test udim=505) 23.5 % 34.1-44.9 MEAN CORPUSCULAR VOLUME (BEAKER) (test teqm=265) 84.8 fL 79.4-94.8 MEAN CORPUSCULAR HEMOGLOBIN (BEAKER) (test 26.0 pg 25.6-32.2 yubt=088) MEAN CORPUSCULAR HEMOGLOBIN CONC (BEAKER) (test 30.6 GM/DL 32.2-35.5 oxtr=330) RED CELL DISTRIBUTION WIDTH (BEAKER) (test 15.5 % 11.7-14.4 febt=094) PLATELET COUNT (BEAKER) (test yfzz=013) 131 K/CU MM 150-450 MEAN PLATELET VOLUME (BEAKER) (test bput=688) 9.0 fL 9.4-12.3 NUCLEATED RED BLOOD CELLS (BEAKER) (test 0 /100 WBC 0-0 hsel=872) NEUTROPHILS RELATIVE PERCENT (BEAKER) (test 59 % sxss=802) LYMPHOCYTES RELATIVE PERCENT (BEAKER) (test 25 % wxem=769) MONOCYTES RELATIVE PERCENT (BEAKER) (test 9 % bjcx=282) EOSINOPHILS RELATIVE PERCENT (BEAKER) (test 5 % stws=615) BASOPHILS RELATIVE PERCENT (BEAKER) (test 1 % vxtz=774) NEUTROPHILS ABSOLUTE COUNT (BEAKER) (test 3.43 K/ L 1.56-6.13 qurt=765) LYMPHOCYTES ABSOLUTE COUNT (BEAKER) (test 1.44 K/ L 1.18-3.74 ugcd=785) MONOCYTES ABSOLUTE COUNT (BEAKER) (test 0.54 K/ L 0.24-0.36 bebr=330) EOSINOPHILS ABSOLUTE COUNT (BEAKER) (test 0.29 K/ L 0.04-0.36 bjiw=396) BASOPHILS ABSOLUTE COUNT (BEAKER) (test 0.07 K/ L 0.01-0.08 ydlq=452) IMMATURE GRANULOCYTES-RELATIVE PERCENT (BEAKER) 0 % 0-1 (test krvk=5883) POCT-GLUCOSE [id number] 22:56:00 Test Item Value Reference Range Comments POC-GLUCOSE METER (BEAKER) 157 mg/dL 70-110 : [facility] [address] [facility] (test selq=6368) [facility], [address]: [employer] PU=[id number] for LAKHWINDER VASQUEZ U/S, RENAL, [id number] 22:42:00Reason for exam:->AKIShould this be performed at [...] Verified Date/Time: 11/01/2019 22:42:07 10: 42 PMPOCT-GLUCOSE [id number] 16:58:00 Test Item Value Reference Range Comments POC-GLUCOSE METER (BEAKER) 188 mg/dL 70-110 : TESTED AT [address] (test ayne=9522) [facility], [address]: [employer] IL=[id number] for DRISCOLLEMILY Sims RAD, ABDOMEN/KUB, 1 VIEW [id number] 14:43:00Reason for exam:->Abdominal distenstionFINAL REPORT INDICATION:Abdominal distention. TECHNIQUE: Abdomen radiograph one view. FINDINGS / IMPRESSION:Air filled nondilated transverse colon and normal-appearing small bowel pattern. No bowel obstruction is suspected. Elevated right hemidiaphragm and TIPS are noted. Signed: Elena Carrera Verified Date/Time: 11/01/2019 14:43:24 Reading Location: [facility] C0X Ortho Consult Reading Room SODIUM, RANDOM [id number] 14:24:00 Test Item Value Reference Range Comments SODIUM URINE (BEAKER) (test podx=664) < meq/L Reference Range: No NormalsCREATININE, RANDOM [id number] 14:21:00 Test Item Value Reference Range Comments CREATININE URINE (BEAKER) (test uwas=020) 165.0 mg/dL Reference Range: No NormalsPROTEIN, RANDOM [id number] 14:21:00 Test Item Value Reference Range Comments PROTEIN, URINE (BEAKER) (test oege=6423) 14 mg/dL 0-14 URINALYSIS W/ REFLEX URINE [id number] 13:54:00 Test Item Value Reference Range Comments COLOR (BEAKER) (test swwh=130) Yellow CLARITY (BEAKER) (test qupl=962) Clear SPECIFIC GRAVITY UA (BEAKER) (test kfpi=861) 1.016 1.001-1.035 PH UA (BEAKER) (test stja=430) 5.5 5.0-8.0 PROTEIN UA (BEAKER) (test jaez=800) Negative Negative GLUCOSE UA (BEAKER) (test ypwd=009) Negative Negative KETONES UA (BEAKER) (test zauv=880) Negative Negative BILIRUBIN UA (BEAKER) (test ejbb=272) Negative Negative BLOOD UA (BEAKER) (test gdxa=755) Negative Negative NITRITE UA (BEAKER) (test bkto=489) Negative Negative LEUKOCYTE ESTERASE UA (BEAKER) (test utkm=764) Negative Negative UROBILINOGEN UA (BEAKER) (test xeut=780) 0.2 mg/dL 0.2-1.0 RBC UA (BEAKER) (test uqle=925) 0 /HPF WBC UA (BEAKER) (test alkj=564) 0 /HPF MUCUS (BEAKER) (test govo=3734) Rare SQUAMOUS EPITHELIAL (BEAKER) (test iymv=041) < /HPF HYALINE CASTS (BEAKER) (test jrmy=069) 4 /LPF SOURCE(BEAKER) (test fzkt=2809) RAD, CHEST, 1 VIEW, NON [id number] 13:16:00Reason for exam:->Fluid excess /SOBShould this be [...] [place] Verified Date/Time: 11/01/2019 13:16:13 Reading Location: [address] Neuro Reading Room POCT-GLUCOSE [id number] 12:43: 00 Test Item Value Reference Range Comments POC-GLUCOSE METER (BEAKER) 207 mg/dL 70-110 : TESTED AT [address] (test jssw=7766) [facility], [address]: [employer] [id number]=[id number] for DRISCOLLMAYELAJADA POCT-GLUCOSE [id number] 08:25:00 Test Item Value Reference Range Comments POC-GLUCOSE METER (BEAKER) 212 mg/dL 70-110 : TESTED AT [address] (test yeac=0617) [facility], [address]: [employer] TM=[id number] for DRISCOLL, LAJADA T4, [id number] 07:43:00 Test Item Value Reference Range Comments FREE T4 (BEAKER) (test ntby=892) 0.88 ng/dL 0.70-1.48 PROTHROMBIN [id number] 06:58:00 Test Item Value Reference Range Comments PROTIME (BEAKER) (test dapp=709) 15.2 seconds 11.9-14.2 INR (BEAKER) (test ymnj=237) 1.2 <=5.9 Effective 04/01/2019: PT Reference Range ChangeNew: 11.9-14.2 Previous: 11.7- 14.7RECOMMENDED COUMADIN/WARFARIN INR THERAPY RANGESSTANDARD DOSE: 2.0-3.0 Includes: PROPHYLAXIS for venous thrombosis, systemic embolization; TREATMENT for venous thrombosis and/or pulmonary embolus.HIGH RISK: Target INR is2.5-3.5 for patients wiht mechanical heart valves.CBC W/PLT COUNT & AUTO [id number] 06:50:00 Test Item Value Reference Range Comments WHITE BLOOD CELL COUNT (BEAKER) (test mimy=400) 5.5 K/ L 3.5-10.5 RED BLOOD CELL COUNT (BEAKER) (test crcw=651) 2.74 M/ L 3.93-5.22 HEMOGLOBIN (BEAKER) (test pehi=624) 7.3 GM/DL 11.2-15.7 HEMATOCRIT (BEAKER) (test hmne=817) 22.8 % 34.1-44.9 MEAN CORPUSCULAR VOLUME (BEAKER) (test epzq=059) 83.2 fL 79.4-94.8 MEAN CORPUSCULAR HEMOGLOBIN (BEAKER) (test 26.6 pg 25.6-32.2 ndmv=866) MEAN CORPUSCULAR HEMOGLOBIN CONC (BEAKER) (test 32.0 GM/DL 32.2-35.5 lqku=932) RED CELL DISTRIBUTION WIDTH (BEAKER) (test 15.7 % 11.7-14.4 fpdi=979) PLATELET COUNT (BEAKER) (test jwsr=797) 124 K/CU MM 150-450 MEAN PLATELET VOLUME (BEAKER) (test sgqg=007) 9.1 fL 9.4-12.3 NUCLEATED RED BLOOD CELLS (BEAKER) (test 0 /100 WBC 0-0 wnbk=095) NEUTROPHILS RELATIVE PERCENT (BEAKER) (test 59 % lpkk=871) LYMPHOCYTES RELATIVE PERCENT (BEAKER) (test 24 % gkyj=983) MONOCYTES RELATIVE PERCENT (BEAKER) (test 10 % ayqn=955) EOSINOPHILS RELATIVE PERCENT (BEAKER) (test 6 % fyov=913) BASOPHILS RELATIVE PERCENT (BEAKER) (test 1 % cxwt=806) NEUTROPHILS ABSOLUTE COUNT (BEAKER) (test 3.22 K/ L 1.56-6.13 zrbg=430) LYMPHOCYTES ABSOLUTE COUNT (BEAKER) (test 1.33 K/ L 1.18-3.74 colt=812) MONOCYTES ABSOLUTE COUNT (BEAKER) (test 0.54 K/ L 0.24-0.36 isnz=763) EOSINOPHILS ABSOLUTE COUNT (BEAKER) (test 0.33 K/ L 0.04-0.36 yuvs=802) BASOPHILS ABSOLUTE COUNT (BEAKER) (test 0.04 K/ L 0.01-0.08 dcwd=522) IMMATURE GRANULOCYTES-RELATIVE PERCENT (BEAKER) 0 % 0-1 (test ivpy=1070) TSH/FREE T4 IF [id number] 06:32:00 Test Item Value Reference Range Comments THYROID STIMULATING HORMONE (BEAKER) (test 12.02 uIU/mL 0.35-4.94 tsmd=862) VITAMIN B12 AND [id number] 06:26:00 Test Item Value Reference Range Comments VITAMIN B12 (BEAKER) (test jreu=112) 1586 pg/mL 213-816 FOLATE (BEAKER) (test vczn=098) 11.2 ng/mL >=7.0 COMPREHENSIVE METABOLIC [id number] 06:13:00 Test Item Value Reference Range Comments TOTAL PROTEIN (BEAKER) 6.1 gm/dL 6.0-8.3 (test jjay=935) ALBUMIN (BEAKER) (test 3.1 g/dL 3.5-5.0 fydq=2210) ALKALINE PHOSPHATASE 122 U/L 40-150 (BEAKER) (test mrbe=939) BILIRUBIN TOTAL (BEAKER) 1.4 mg/dL 0.2-1.2 (test rrvq=991) SODIUM (BEAKER) (test 133 meq/L 136-145 dqbn=728) POTASSIUM (BEAKER) (test 4.6 meq/L 3.5-5.1 ljof=193) CHLORIDE (BEAKER) (test 100 meq/L 98-107 gvpp=319) CO2 (BEAKER) (test 24 meq/L 22-29 kycs=983) BLOOD UREA NITROGEN 64 mg/dL 7-21 (BEAKER) (test cune=236) CREATININE (BEAKER) (test 2.30 mg/dL 0.57-1.25 fkkg=697) GLUCOSE RANDOM (BEAKER) 249 mg/dL 70-105 (test ejya=734) CALCIUM (BEAKER) (test 8.8 mg/dL 8.4-10.2 rofj=771) AST (SGOT) (BEAKER) (test 38 U/L 5-34 rijo=772) ALT (SGPT) (BEAKER) (test 24 U/L 6-55 zqti=094) EGFR (BEAKER) (test 22 mL/min/1.73 sq m ESTIMATED GFR IS NOT psto=2985) ACCURATE CREATININE CLEARANCE IN PREDICTING GLOMERULAR FILTRATION RATE. ESTIMATED GFR IS NOT APPLICABLE FOR DIALYSIS PATIENTS. POCT-GLUCOSE [id number] 01:48:00 Test Item Value Reference Range Comments POC-GLUCOSE METER (BEAKER) 263 mg/dL 70-110 : [facility] [address] [facility] (test ijkh=4225) [facility], [address]: [employer] MK=[id number] for DWIGHT HASSAN HEPATIC FUNCTION [id number] 15:39:00 Test Item Value Reference Range Comments TOTAL PROTEIN (BEAKER) (test chwk=986) 6.5 gm/dL 6.0-8.3 ALBUMIN (BEAKER) (test rvtb=4521) 3.0 g/dL 3.5-5.0 BILIRUBIN TOTAL (BEAKER) (test nqct=013) 1.5 mg/dL 0.2-1.2 BILIRUBIN DIRECT (BEAKER) (test ddst=259) 0.7 mg/dL 0.1-0.5 ALKALINE PHOSPHATASE (BEAKER) (test oyrf=810) 120 U/L 40-150 AST (SGOT) (BEAKER) (test limi=827) 34 U/L 5-34 ALT (SGPT) (BEAKER) (test noqy=610) 21 U/L 6-55 BASIC METABOLIC [id number] 15:39:00 Test Item Value Reference Range Comments SODIUM (BEAKER) (test 135 meq/L 136-145 kczj=952) POTASSIUM (BEAKER) (test 3.8 meq/L 3.5-5.1 kuyg=172) CHLORIDE (BEAKER) (test 99 meq/L 98-107 ugca=813) CO2 (BEAKER) (test 31 meq/L 22-29 amal=839) BLOOD UREA NITROGEN 21 mg/dL 7-21 (BEAKER) (test pxmk=135) CREATININE (BEAKER) (test 1.70 mg/dL 0.57-1.25 mkqg=787) GLUCOSE RANDOM (BEAKER) 290 mg/dL 70-105 (test hths=498) CALCIUM (BEAKER) (test 8.4 mg/dL 8.4-10.2 uasm=904) EGFR (BEAKER) (test 31 mL/min/1.73 sq m ESTIMATED GFR IS NOT bkwg=1523) ACCURATE CREATININE CLEARANCE IN PREDICTING GLOMERULAR FILTRATION RATE. ESTIMATED GFR IS NOT APPLICABLE FOR DIALYSIS PATIENTS. PROTHROMBIN [id number] 15:39:00 Test Item Value Reference Range Comments PROTIME (BEAKER) (test hxkw=642) 14.2 seconds 11.9-14.2 INR (BEAKER) (test cpki=060) 1.2 <=5.9 Effective 04/01/2019: PT Reference Range ChangeNew: 11.9-14.2 Previous: 11.7- 14.7RECOMMENDED COUMADIN/WARFARIN INR THERAPY RANGESSTANDARD DOSE: 2.0-3.0 Includes: PROPHYLAXIS for venous thrombosis, systemic embolization; TREATMENT for venous thrombosis and/or pulmonary embolus.HIGH RISK: Target INR is2.5-3.5 for patients wiht mechanical heart valves.CBC W/PLT COUNT & AUTO [id number] 15:25:00 Test Item Value Reference Range Comments WHITE BLOOD CELL COUNT (BEAKER) (test npvz=475) 5.8 K/ L 3.5-10.5 RED BLOOD CELL COUNT (BEAKER) (test wvqm=595) 3.30 M/ L 3.93-5.22 HEMOGLOBIN (BEAKER) (test quil=471) 8.9 GM/DL 11.2-15.7 HEMATOCRIT (BEAKER) (test qpsf=434) 28.2 % 34.1-44.9 MEAN CORPUSCULAR VOLUME (BEAKER) (test pgim=227) 85.5 fL 79.4-94.8 MEAN CORPUSCULAR HEMOGLOBIN (BEAKER) (test 27.0 pg 25.6-32.2 tajg=957) MEAN CORPUSCULAR HEMOGLOBIN CONC (BEAKER) (test 31.6 GM/DL 32.2-35.5 cetx=699) RED CELL DISTRIBUTION WIDTH (BEAKER) (test 16.6 % 11.7-14.4 ncml=432) PLATELET COUNT (BEAKER) (test pdzz=952) 185 K/CU MM 150-450 MEAN PLATELET VOLUME (BEAKER) (test mmro=787) 9.0 fL 9.4-12.3 NUCLEATED RED BLOOD CELLS (BEAKER) (test 0 /100 WBC 0-0 suwv=201) NEUTROPHILS RELATIVE PERCENT (BEAKER) (test 50 % qkpn=889) LYMPHOCYTES RELATIVE PERCENT (BEAKER) (test 32 % ecco=899) MONOCYTES RELATIVE PERCENT (BEAKER) (test 7 % deud=922) EOSINOPHILS RELATIVE PERCENT (BEAKER) (test 10 % iqay=134) BASOPHILS RELATIVE PERCENT (BEAKER) (test 2 % kxgd=429) NEUTROPHILS ABSOLUTE COUNT (BEAKER) (test 2.88 K/ L 1.56-6.13 oxlb=959) LYMPHOCYTES ABSOLUTE COUNT (BEAKER) (test 1.86 K/ L 1.18-3.74 wypq=926) MONOCYTES ABSOLUTE COUNT (BEAKER) (test 0.38 K/ L 0.24-0.36 ystc=629) EOSINOPHILS ABSOLUTE COUNT (BEAKER) (test 0.55 K/ L 0.04-0.36 wupl=107) BASOPHILS ABSOLUTE COUNT (BEAKER) (test 0.10 K/ L 0.01-0.08 sjij=726) IMMATURE GRANULOCYTES-RELATIVE PERCENT (BEAKER) 0 % 0-1 (test fpqm=0210) PROTHROMBIN [id number] 17:20:00 Test Item Value Reference Range Comments PROTIME (BEAKER) (test idfj=632) 13.6 seconds 11.9-14.2 INR (BEAKER) (test pvqj=620) 1.1 <=5.9 Effective 04/01/2019: PT Reference Range ChangeNew: 11.9-14.2 Previous: 11.7- 14.7RECOMMENDED COUMADIN/WARFARIN INR THERAPY RANGESSTANDARD DOSE: 2.0-3.0 Includes: PROPHYLAXIS for venous thrombosis, systemic embolization; TREATMENT for venous thrombosis and/or pulmonary embolus.HIGH RISK: Target INR is2.5-3.5 for patients wiht mechanical heart valves.HEPATIC FUNCTION [id number] 17:16 :00 Test Item Value Reference Range Comments TOTAL PROTEIN (BEAKER) (test vxfh=753) 6.7 gm/dL 6.0-8.3 ALBUMIN (BEAKER) (test aeug=4087) 3.0 g/dL 3.5-5.0 BILIRUBIN TOTAL (BEAKER) (test flvo=007) 1.4 mg/dL 0.2-1.2 BILIRUBIN DIRECT (BEAKER) (test ycxv=639) 0.7 mg/dL 0.1-0.5 ALKALINE PHOSPHATASE (BEAKER) (test ackz=676) 139 U/L 40-150 AST (SGOT) (BEAKER) (test qcgs=759) 32 U/L 5-34 ALT (SGPT) (BEAKER) (test dxlk=301) 16 U/L 6-55 BASIC METABOLIC [id number] 17:16:00 Test Item Value Reference Range Comments SODIUM (BEAKER) (test 139 meq/L 136-145 wbqx=353) POTASSIUM (BEAKER) (test 3.6 meq/L 3.5-5.1 nsjl=032) CHLORIDE (BEAKER) (test 99 meq/L 98-107 xdsl=795) CO2 (BEAKER) (test 32 meq/L 22-29 quzf=649) BLOOD UREA NITROGEN 26 mg/dL 7-21 (BEAKER) (test dsav=960) CREATININE (BEAKER) (test 1.68 mg/dL 0.57-1.25 vfsq=382) GLUCOSE RANDOM (BEAKER) 263 mg/dL 70-105 (test dxlx=883) CALCIUM (BEAKER) (test 9.0 mg/dL 8.4-10.2 xtoe=788) EGFR (BEAKER) (test 31 mL/min/1.73 sq m ESTIMATED GFR IS NOT ebjx=7829) ACCURATE CREATININE CLEARANCE IN PREDICTING GLOMERULAR FILTRATION RATE. ESTIMATED GFR IS NOT APPLICABLE FOR DIALYSIS PATIENTS. CBC W/PLT COUNT & AUTO [id number] 17:01:00 Test Item Value Reference Range Comments WHITE BLOOD CELL COUNT (BEAKER) (test wgku=472) 7.4 K/ L 3.5-10.5 RED BLOOD CELL COUNT (BEAKER) (test sxim=142) 3.44 M/ L 3.93-5.22 HEMOGLOBIN (BEAKER) (test gaox=399) 9.6 GM/DL 11.2-15.7 HEMATOCRIT (BEAKER) (test hrob=104) 30.1 % 34.1-44.9 MEAN CORPUSCULAR VOLUME (BEAKER) (test tase=428) 87.5 fL 79.4-94.8 MEAN CORPUSCULAR HEMOGLOBIN (BEAKER) (test 27.9 pg 25.6-32.2 unat=934) MEAN CORPUSCULAR HEMOGLOBIN CONC (BEAKER) (test 31.9 GM/DL 32.2-35.5 zxzi=765) RED CELL DISTRIBUTION WIDTH (BEAKER) (test 16.0 % 11.7-14.4 ktfb=703) PLATELET COUNT (BEAKER) (test lbuk=768) 190 K/CU MM 150-450 MEAN PLATELET VOLUME (BEAKER) (test alci=439) 9.3 fL 9.4-12.3 NUCLEATED RED BLOOD CELLS (BEAKER) (test 0 /100 WBC 0-0 zrju=750) NEUTROPHILS RELATIVE PERCENT (BEAKER) (test 65 % tqiu=761) LYMPHOCYTES RELATIVE PERCENT (BEAKER) (test 23 % vkcr=828) MONOCYTES RELATIVE PERCENT (BEAKER) (test 6 % ghgo=192) EOSINOPHILS RELATIVE PERCENT (BEAKER) (test 5 % hphk=164) BASOPHILS RELATIVE PERCENT (BEAKER) (test 1 % ysew=615) NEUTROPHILS ABSOLUTE COUNT (BEAKER) (test 4.83 K/ L 1.56-6.13 oqdz=181) LYMPHOCYTES ABSOLUTE COUNT (BEAKER) (test 1.67 K/ L 1.18-3.74 vewl=555) MONOCYTES ABSOLUTE COUNT (BEAKER) (test 0.41 K/ L 0.24-0.36 qoaj=318) EOSINOPHILS ABSOLUTE COUNT (BEAKER) (test 0.40 K/ L 0.04-0.36 bltd=103) BASOPHILS ABSOLUTE COUNT (BEAKER) (test 0.06 K/ L 0.01-0.08 pzom=487) IMMATURE GRANULOCYTES-RELATIVE PERCENT (BEAKER) 0 % 0-1 (test vcvv=9475) POCT-GLUCOSE [id number] 13:48:00 Test Item Value Reference Range Comments POC-GLUCOSE METER (BEAKER) 203 mg/dL 70-110 TESTED AT [address] (test vbwp=7251) [facility] [address] POCT-GLUCOSE [id number] 09:45:00 Test Item Value Reference Range Comments POC-GLUCOSE METER (BEAKER) 168 mg/dL 70-110 TESTED AT [address] (test xhlf=5386) [facility] [address] POCT-GLUCOSE [id number] 08:06:00 Test Item Value Reference Range Comments POC-GLUCOSE METER (BEAKER) 177 mg/dL 70-110 TESTED AT [address] (test xccz=5229) [facility] [address] COMPREHENSIVE METABOLIC [id number] 06:11:00 Test Item Value Reference Range Comments TOTAL PROTEIN (BEAKER) 5.5 gm/dL 6.0-8.3 (test fabr=251) ALBUMIN (BEAKER) (test 3.0 g/dL 3.5-5.0 uwhe=0624) ALKALINE PHOSPHATASE 117 U/L 40-150 (BEAKER) (test rdjd=289) BILIRUBIN TOTAL (BEAKER) 1.2 mg/dL 0.2-1.2 (test gmns=144) SODIUM (BEAKER) (test 138 meq/L 136-145 bphd=008) POTASSIUM (BEAKER) (test 4.1 meq/L 3.5-5.1 qydx=099) CHLORIDE (BEAKER) (test 102 meq/L 98-107 mapx=160) CO2 (BEAKER) (test 29 meq/L 22-29 gazg=862) BLOOD UREA NITROGEN 23 mg/dL 7-21 (BEAKER) (test zhnz=415) CREATININE (BEAKER) (test 1.26 mg/dL 0.57-1.25 lspu=723) GLUCOSE RANDOM (BEAKER) 177 mg/dL 70-105 (test yfap=356) CALCIUM (BEAKER) (test 8.3 mg/dL 8.4-10.2 xpyq=675) AST (SGOT) (BEAKER) (test 26 U/L 5-34 wgyg=269) ALT (SGPT) (BEAKER) (test 9 U/L 6-55 nfgp=834) EGFR (BEAKER) (test 43 mL/min/1.73 sq m ESTIMATED GFR IS NOT cryw=4922) ACCURATE CREATININE CLEARANCE IN PREDICTING GLOMERULAR FILTRATION RATE. ESTIMATED GFR IS NOT APPLICABLE FOR DIALYSIS PATIENTS. CBC (HEMOGRAM ONLY)2019-06-03 05:17:00 Test Item Value Reference Range Comments WHITE BLOOD CELL COUNT (BEAKER) (test yjba=905) 6.0 K/ L 3.5-10.5 RED BLOOD CELL COUNT (BEAKER) (test ghpy=884) 2.95 M/ L 3.93-5.22 HEMOGLOBIN (BEAKER) (test hhbr=955) 8.1 GM/DL 11.2-15.7 HEMATOCRIT (BEAKER) (test qstw=468) 26.3 % 34.1-44.9 MEAN CORPUSCULAR VOLUME (BEAKER) (test fwsm=969) 89.2 fL 79.4-94.8 MEAN CORPUSCULAR HEMOGLOBIN (BEAKER) (test 27.5 pg 25.6-32.2 qzmf=538) MEAN CORPUSCULAR HEMOGLOBIN CONC (BEAKER) (test 30.8 GM/DL 32.2-35.5 vual=339) RED CELL DISTRIBUTION WIDTH (BEAKER) (test 17.3 % 11.7-14.4 squf=098) PLATELET COUNT (BEAKER) (test pacz=527) 203 K/CU MM 150-450 MEAN PLATELET VOLUME (BEAKER) (test cxyf=002) 9.2 fL 9.4-12.3 NUCLEATED RED BLOOD CELLS (BEAKER) (test 0 /100 WBC 0-0 kkus=254) POCT-GLUCOSE [id number] 23:37:00 Test Item Value Reference Range Comments POC-GLUCOSE METER (BEAKER) 212 mg/dL 70-[address] [facility] [address] [facility] (test kgqq=9695) [place] [address] POCT-GLUCOSE [id number] 16:58:00 Test Item Value Reference Range Comments POC-GLUCOSE METER (BEAKER) 313 mg/dL 70-110 TESTED AT [address] (test vrsg=4388) [place] [id number] ANG, TIPSS [id number] 14:25:00Reason for exam:->still recurrent paracentesisFINAL REPORT Procedures:1. [...] the patient's medical record by the nurse. Black Powder Glazing Operator: Akil Chung MD. Stripper Soft Plastic: MD Ishaan (Fellow) Approach: 1. Right lower [...] skin and deep soft tissues. A 5 Kitt[place] one-step catheter wasinserted and removed from the [...] The needle was exchanged for a 4 [place] micropuncture sheath. The micropuncture sheath was exchanged over a 0.035 Bentson wire for a 5 [place]itian x 10 cm vascular sheath. The TIPS stent was then cannulated using a 5 [place] C2 catheter and 0.035 angled Glidewire. The [...] Verified Date/Time: 06/02/2019 14:25:34 Reading Location : [facility] P0 Angio Body Reading Room POCT-GLUCOSE [id number] 11:52:00 Test Item Value Reference Range Comments POC-GLUCOSE METER (BEAKER) 159 mg/dL 70-[address] [facility] [address] (test ofoe=7629) [place] [address] [id number] 05:55:00 Test Item Value Reference Range Comments MAGNESIUM (BEAKER) (test etnr=730) 1.6 mg/dL 1.6-2.6 COMPREHENSIVE METABOLIC [id number] 05:55:00 Test Item Value Reference Range Comments TOTAL PROTEIN (BEAKER) 5.7 gm/dL 6.0-8.3 (test mqeh=901) ALBUMIN (BEAKER) (test 3.3 g/dL 3.5-5.0 seqr=6070) ALKALINE PHOSPHATASE 118 U/L 40-150 (BEAKER) (test wusl=501) BILIRUBIN TOTAL (BEAKER) 1.4 mg/dL 0.2-1.2 (test uygu=369) SODIUM (BEAKER) (test 140 meq/L 136-145 lqyu=309) POTASSIUM (BEAKER) (test 3.3 meq/L 3.5-5.1 qooq=849) CHLORIDE (BEAKER) (test 101 meq/L 98-107 wexb=552) CO2 (BEAKER) (test 31 meq/L 22-29 ojlw=702) BLOOD UREA NITROGEN 23 mg/dL 7-21 (BEAKER) (test piqo=647) CREATININE (BEAKER) (test 1.33 mg/dL 0.57-1.25 qnzi=209) GLUCOSE RANDOM (BEAKER) 131 mg/dL 70-105 (test pasz=343) CALCIUM (BEAKER) (test 8.7 mg/dL 8.4-10.2 hmem=714) AST (SGOT) (BEAKER) (test 27 U/L 5-34 vrds=344) ALT (SGPT) (BEAKER) (test 11 U/L 6-55 zxos=480) EGFR (BEAKER) (test 41 mL/min/1.73 sq m ESTIMATED GFR IS NOT cueq=0957) ACCURATE CREATININE CLEARANCE IN PREDICTING GLOMERULAR FILTRATION RATE. ESTIMATED GFR IS NOT APPLICABLE FOR DIALYSIS PATIENTS. CBC W/PLT COUNT & AUTO [id number] 05:43:00 Test Item Value Reference Range Comments WHITE BLOOD CELL COUNT (BEAKER) (test knvu=477) 6.0 K/ L 3.5-10.5 RED BLOOD CELL COUNT (BEAKER) (test bjjy=030) 2.97 M/ L 3.93-5.22 HEMOGLOBIN (BEAKER) (test lpwk=389) 8.2 GM/DL 11.2-15.7 HEMATOCRIT (BEAKER) (test rogv=332) 26.0 % 34.1-44.9 MEAN CORPUSCULAR VOLUME (BEAKER) (test uzod=035) 87.5 fL 79.4-94.8 MEAN CORPUSCULAR HEMOGLOBIN (BEAKER) (test 27.6 pg 25.6-32.2 sgmz=939) MEAN CORPUSCULAR HEMOGLOBIN CONC (BEAKER) (test 31.5 GM/DL 32.2-35.5 anqg=278) RED CELL DISTRIBUTION WIDTH (BEAKER) (test 17.7 % 11.7-14.4 mhat=861) PLATELET COUNT (BEAKER) (test outt=557) 194 K/CU MM 150-450 MEAN PLATELET VOLUME (BEAKER) (test bddh=223) 9.3 fL 9.4-12.3 NUCLEATED RED BLOOD CELLS (BEAKER) (test 0 /100 WBC 0-0 unkg=979) NEUTROPHILS RELATIVE PERCENT (BEAKER) (test 48 % fcio=647) LYMPHOCYTES RELATIVE PERCENT (BEAKER) (test 31 % yuyb=811) MONOCYTES RELATIVE PERCENT (BEAKER) (test 10 % jhoi=756) EOSINOPHILS RELATIVE PERCENT (BEAKER) (test 9 % gziz=197) BASOPHILS RELATIVE PERCENT (BEAKER) (test 1 % fgim=097) NEUTROPHILS ABSOLUTE COUNT (BEAKER) (test 2.84 K/ L 1.56-6.13 vjfp=450) LYMPHOCYTES ABSOLUTE COUNT (BEAKER) (test 1.87 K/ L 1.18-3.74 gqwq=216) MONOCYTES ABSOLUTE COUNT (BEAKER) (test 0.60 K/ L 0.24-0.36 cumv=158) EOSINOPHILS ABSOLUTE COUNT (BEAKER) (test 0.56 K/ L 0.04-0.36 ucwg=185) BASOPHILS ABSOLUTE COUNT (BEAKER) (test 0.08 K/ L 0.01-0.08 kuke=182) IMMATURE GRANULOCYTES-RELATIVE PERCENT (BEAKER) 0 % 0-1 (test zuva=7477) [id number] 05:42:00 Test Item Value Reference Range Comments PHOSPHORUS (BEAKER) (test yvvc=242) 2.3 mg/dL 2.3-4.7 POCT-GLUCOSE [id number] 22:34:00 Test Item Value Reference Range Comments POC-GLUCOSE METER (BEAKER) 192 mg/dL 70-110 TESTED AT [address] (test jawq=7522) [facility] [address] POCT-GLUCOSE [id number] 17:01:00 Test Item Value Reference Range Comments POC-GLUCOSE METER (BEAKER) 250 mg/dL 70-110 TESTED AT [address] (test evsv=1859) [facility] [address] [id number] 07:42:00 Test Item Value Reference Range Comments MAGNESIUM (BEAKER) (test 1.6 mg/dL 1.6-2.6 Specimen slightly hemolyzed qqsl=663) [id number] 07:42:00 Test Item Value Reference Range Comments PHOSPHORUS (BEAKER) (test 2.8 mg/dL 2.3-4.7 Specimen slightly hemolyzed obfy=796) COMPREHENSIVE METABOLIC [id number] 07:42:00 Test Item Value Reference Range Comments TOTAL PROTEIN (BEAKER) 5.5 gm/dL 6.0-8.3 Specimen slightly (test nqrh=840) hemolyzed ALBUMIN (BEAKER) (test 2.9 g/dL 3.5-5.0 Specimen slightly xpug=6947) hemolyzed ALKALINE PHOSPHATASE 125 U/L 40-150 (BEAKER) (test wxdb=070) BILIRUBIN TOTAL (BEAKER) 1.1 mg/dL 0.2-1.2 Specimen slightly (test cghj=234) hemolyzed SODIUM (BEAKER) (test 141 meq/L 136-145 kkha=465) POTASSIUM (BEAKER) (test 3.6 meq/L 3.5-5.1 Specimen slightly ylug=095) hemolyzed CHLORIDE (BEAKER) (test 101 meq/L 98-107 zffo=839) CO2 (BEAKER) (test 31 meq/L 22-29 njzg=505) BLOOD UREA NITROGEN 23 mg/dL 7-21 (BEAKER) (test ixsp=327) CREATININE (BEAKER) (test 1.50 mg/dL 0.57-1.25 Specimen slightly fglp=422) hemolyzed GLUCOSE RANDOM (BEAKER) 153 mg/dL 70-105 (test qbqp=473) CALCIUM (BEAKER) (test 8.7 mg/dL 8.4-10.2 bvra=377) AST (SGOT) (BEAKER) (test 35 U/L 5-34 Specimen slightly zsyg=238) hemolyzed ALT (SGPT) (BEAKER) (test 12 U/L 6-55 Specimen slightly sgny=658) hemolyzed EGFR (BEAKER) (test 35 mL/min/1.73 sq m ESTIMATED GFR IS NOT gyux=2139) ACCURATE CREATININE CLEARANCE IN PREDICTING GLOMERULAR FILTRATION RATE. ESTIMATED GFR IS NOT APPLICABLE FOR DIALYSIS PATIENTS. POCT-GLUCOSE [id number] 07:38:00 Test Item Value Reference Range Comments POC-GLUCOSE METER (BEAKER) 154 mg/dL 70-110 TESTED AT [address] (test qkca=9492) [facility] [address] CBC W/PLT COUNT & AUTO [id number] 06:24:00 Test Item Value Reference Range Comments WHITE BLOOD CELL COUNT (BEAKER) (test uxjn=622) 6.0 K/ L 3.5-10.5 RED BLOOD CELL COUNT (BEAKER) (test gvnc=968) 3.09 M/ L 3.93-5.22 HEMOGLOBIN (BEAKER) (test vyay=729) 8.5 GM/DL 11.2-15.7 HEMATOCRIT (BEAKER) (test nyme=609) 27.0 % 34.1-44.9 MEAN CORPUSCULAR VOLUME (BEAKER) (test gkoj=143) 87.4 fL 79.4-94.8 MEAN CORPUSCULAR HEMOGLOBIN (BEAKER) (test 27.5 pg 25.6-32.2 tcpw=553) MEAN CORPUSCULAR HEMOGLOBIN CONC (BEAKER) (test 31.5 GM/DL 32.2-35.5 wxgj=259) RED CELL DISTRIBUTION WIDTH (BEAKER) (test 17.7 % 11.7-14.4 bxap=839) PLATELET COUNT (BEAKER) (test mvvb=724) 196 K/CU MM 150-450 MEAN PLATELET VOLUME (BEAKER) (test dzyj=964) 8.9 fL 9.4-12.3 NUCLEATED RED BLOOD CELLS (BEAKER) (test 0 /100 WBC 0-0 ejgb=454) NEUTROPHILS RELATIVE PERCENT (BEAKER) (test 44 % pvfx=455) LYMPHOCYTES RELATIVE PERCENT (BEAKER) (test 34 % jzyo=117) MONOCYTES RELATIVE PERCENT (BEAKER) (test 11 % uvbl=128) EOSINOPHILS RELATIVE PERCENT (BEAKER) (test 9 % hicm=305) BASOPHILS RELATIVE PERCENT (BEAKER) (test 2 % dqtx=923) NEUTROPHILS ABSOLUTE COUNT (BEAKER) (test 2.64 K/ L 1.56-6.13 npub=613) LYMPHOCYTES ABSOLUTE COUNT (BEAKER) (test 2.03 K/ L 1.18-3.74 euly=423) MONOCYTES ABSOLUTE COUNT (BEAKER) (test 0.64 K/ L 0.24-0.36 hmaf=945) EOSINOPHILS ABSOLUTE COUNT (BEAKER) (test 0.54 K/ L 0.04-0.36 tjfk=210) BASOPHILS ABSOLUTE COUNT (BEAKER) (test 0.09 K/ L 0.01-0.08 xxsk=738) IMMATURE GRANULOCYTES-RELATIVE PERCENT (BEAKER) 0 % 0-1 (test mgvy=0760) CALCIUM, [id number] 05:35:00 Test Item Value Reference Range Comments CALCIUM IONIZED (BEAKER) (test nouz=573) 0.99 mmol/L 1.12-1.27 PH, BLOOD (BEAKER) (test ddsx=8401) 7.50 POCT-GLUCOSE [id number] 22:12:00 Test Item Value Reference Range Comments POC-GLUCOSE METER (BEAKER) 246 mg/dL 70-110 TESTED AT [address] (test gszy=8291) [facility] [address] POCT-GLUCOSE [id number] 17:11:00 Test Item Value Reference Range Comments POC-GLUCOSE METER (BEAKER) 201 mg/dL 70-110 TESTED AT [address] (test yqxl=7499) [facility] [address] POCT-GLUCOSE [id number] 13:24:00 Test Item Value Reference Range Comments POC-GLUCOSE METER (BEAKER) 173 mg/dL 70-110 TESTED AT [address] (test atyr=8787) [facility] [address] COMPREHENSIVE METABOLIC [id number] 09:06:00 Test Item Value Reference Range Comments TOTAL PROTEIN (BEAKER) 5.8 gm/dL 6.0-8.3 (test zxci=112) ALBUMIN (BEAKER) (test 3.2 g/dL 3.5-5.0 qzaz=6746) ALKALINE PHOSPHATASE 125 U/L 40-150 (BEAKER) (test dfzz=698) BILIRUBIN TOTAL (BEAKER) 1.6 mg/dL 0.2-1.2 (test ybbx=328) SODIUM (BEAKER) (test 140 meq/L 136-145 urhv=767) POTASSIUM (BEAKER) (test 3.4 meq/L 3.5-5.1 rrnf=963) CHLORIDE (BEAKER) (test 100 meq/L 98-107 nhse=884) CO2 (BEAKER) (test 31 meq/L 22-29 rrld=550) BLOOD UREA NITROGEN 21 mg/dL 7-21 (BEAKER) (test fjoe=856) CREATININE (BEAKER) (test 1.57 mg/dL 0.57-1.25 zsdb=658) GLUCOSE RANDOM (BEAKER) 138 mg/dL 70-105 (test qoua=770) CALCIUM (BEAKER) (test 8.9 mg/dL 8.4-10.2 zmmg=831) AST (SGOT) (BEAKER) (test 33 U/L 5-34 rukf=261) ALT (SGPT) (BEAKER) (test 13 U/L 6-55 qwzc=990) EGFR (BEAKER) (test 33 mL/min/1.73 sq m ESTIMATED GFR IS NOT ueqh=2266) ACCURATE CREATININE CLEARANCE IN PREDICTING GLOMERULAR FILTRATION RATE. ESTIMATED GFR IS NOT APPLICABLE FOR DIALYSIS PATIENTS. Specimen slightly ictericPOCT-GLUCOSE [id number] 07:53:00 Test Item Value Reference Range Comments POC-GLUCOSE METER (BEAKER) 157 mg/dL 70-[address] [facility] [address] [facility] (test oajt=1485) [facility] [address] CBC (HEMOGRAM ONLY)2019-05-31 06:33:00 Test Item Value Reference Range Comments WHITE BLOOD CELL COUNT (BEAKER) (test kgyp=303) 5.7 K/ L 3.5-10.5 RED BLOOD CELL COUNT (BEAKER) (test vvgo=521) 3.25 M/ L 3.93-5.22 HEMOGLOBIN (BEAKER) (test sbxg=209) 8.9 GM/DL 11.2-15.7 HEMATOCRIT (BEAKER) (test nnkk=410) 28.3 % 34.1-44.9 MEAN CORPUSCULAR VOLUME (BEAKER) (test vlzy=238) 87.1 fL 79.4-94.8 MEAN CORPUSCULAR HEMOGLOBIN (BEAKER) (test 27.4 pg 25.6-32.2 ynhi=690) MEAN CORPUSCULAR HEMOGLOBIN CONC (BEAKER) (test 31.4 GM/DL 32.2-35.5 idtm=216) RED CELL DISTRIBUTION WIDTH (BEAKER) (test 17.5 % 11.7-14.4 juxn=412) PLATELET COUNT (BEAKER) (test dszn=507) 188 K/CU MM 150-450 MEAN PLATELET VOLUME (BEAKER) (test koho=017) 9.1 fL 9.4-12.3 NUCLEATED RED BLOOD CELLS (BEAKER) (test 0 /100 WBC 0-0 wvwy=726) POCT-GLUCOSE [id number] 22:28:00 Test Item Value Reference Range Comments POC-GLUCOSE METER (BEAKER) 193 mg/dL 70-110 TESTED AT [address] (test ceob=5597) [place] [address] POCT-GLUCOSE [id number] 17:19:00 Test Item Value Reference Range Comments POC-GLUCOSE METER (BEAKER) 155 mg/dL 70-110 TESTED AT [address] (test dlbq=7852) [place] [address] POCT-GLUCOSE [id number] 12:44:00 Test Item Value Reference Range Comments POC-GLUCOSE METER (BEAKER) 189 mg/dL 70-110 TESTED AT [address] (test ezty=0197) [place] [address] POCT-GLUCOSE [id number] 08:30:00 Test Item Value Reference Range Comments POC-GLUCOSE METER (BEAKER) 140 mg/dL 70-110 TESTED AT [address] (test xkxc=1214) [place] [address] [id number] 05:15:00 Test Item Value Reference Range Comments THYROID STIMULATING HORMONE (BEAKER) (test 6.32 uIU/mL 0.35-4.94 yjsp=365) T4, [id number] 05:11:00 Test Item Value Reference Range Comments FREE T4 (BEAKER) (test onhj=817) 1.70 ng/dL 0.70-1.48 [id number] 04:53:00 Test Item Value Reference Range Comments PHOSPHORUS (BEAKER) (test aeso=026) 2.4 mg/dL 2.3-4.7 [id number] 04:53:00 Test Item Value Reference Range Comments MAGNESIUM (BEAKER) (test wiza=751) 1.8 mg/dL 1.6-2.6 COMPREHENSIVE METABOLIC [id number] 04:53:00 Test Item Value Reference Range Comments TOTAL PROTEIN (BEAKER) 5.1 gm/dL 6.0-8.3 (test mwvt=415) ALBUMIN (BEAKER) (test 2.9 g/dL 3.5-5.0 jaed=6020) ALKALINE PHOSPHATASE 101 U/L 40-150 (BEAKER) (test jqok=926) BILIRUBIN TOTAL (BEAKER) 1.6 mg/dL 0.2-1.2 (test jtyp=851) SODIUM (BEAKER) (test 137 meq/L 136-145 qpqj=276) POTASSIUM (BEAKER) (test 3.7 meq/L 3.5-5.1 fmvw=075) CHLORIDE (BEAKER) (test 99 meq/L 98-107 honz=352) CO2 (BEAKER) (test 32 meq/L 22-29 dbfe=270) BLOOD UREA NITROGEN 20 mg/dL 7-21 (BEAKER) (test jtrg=801) CREATININE (BEAKER) (test 1.55 mg/dL 0.57-1.25 ggcc=644) GLUCOSE RANDOM (BEAKER) 157 mg/dL 70-105 (test zdht=310) CALCIUM (BEAKER) (test 8.3 mg/dL 8.4-10.2 wixz=409) AST (SGOT) (BEAKER) (test 33 U/L 5-34 vmfr=556) ALT (SGPT) (BEAKER) (test 12 U/L 6-55 lhot=256) EGFR (BEAKER) (test 34 mL/min/1.73 sq m ESTIMATED GFR IS NOT yybx=1660) ACCURATE CREATININE CLEARANCE IN PREDICTING GLOMERULAR FILTRATION RATE. ESTIMATED GFR IS NOT APPLICABLE FOR DIALYSIS PATIENTS. CBC (HEMOGRAM ONLY)2019-05-30 04:13:00 Test Item Value Reference Range Comments WHITE BLOOD CELL COUNT (BEAKER) (test qgvc=293) 5.3 K/ L 3.5-10.5 RED BLOOD CELL COUNT (BEAKER) (test dfof=482) 2.75 M/ L 3.93-5.22 HEMOGLOBIN (BEAKER) (test iqjk=755) 7.6 GM/DL 11.2-15.7 HEMATOCRIT (BEAKER) (test wdtt=525) 24.2 % 34.1-44.9 MEAN CORPUSCULAR VOLUME (BEAKER) (test muwa=258) 88.0 fL 79.4-94.8 MEAN CORPUSCULAR HEMOGLOBIN (BEAKER) (test 27.6 pg 25.6-32.2 uxux=284) MEAN CORPUSCULAR HEMOGLOBIN CONC (BEAKER) (test 31.4 GM/DL 32.2-35.5 cgob=757) RED CELL DISTRIBUTION WIDTH (BEAKER) (test 17.4 % 11.7-14.4 udhw=464) PLATELET COUNT (BEAKER) (test xuaw=788) 162 K/CU MM 150-450 MEAN PLATELET VOLUME (BEAKER) (test xajg=919) 9.2 fL 9.4-12.3 NUCLEATED RED BLOOD CELLS (BEAKER) (test 0 /100 WBC 0-0 qvor=074) CALCIUM, [id number] 04:13:00 Test Item Value Reference Range Comments CALCIUM IONIZED (BEAKER) (test bqoo=322) 0.98 mmol/L 1.12-1.27 PH, BLOOD (BEAKER) (test pjub=5069) 7.58 RAD, CHEST, 2 [id number] 23:47:00Reason for exam:->opacitiesFINAL REPORT Portable chest. HISTORY: [...] MDReport Verified Date/Time: 05/29/2019 23:47:08 Reading Location: [facility] [id number] Consult Reading Room POCT-GLUCOSE [id number] 23:12:00 Test Item Value Reference Range Comments POC-GLUCOSE METER (BEAKER) 192 mg/dL 70-110 TESTED AT [address] (test gxzh=5183) [facility] [address] URINALYSIS W/ [id number] 18:14:00 Test Item Value Reference Range Comments COLOR (BEAKER) (test teti=427) Yellow CLARITY (BEAKER) (test kkby=464) Clear SPECIFIC GRAVITY UA (BEAKER) (test 1.011 1.001-1.035 yfyk=409) PH UA (BEAKER) (test zxdw=107) 8.5 5.0-8.0 PROTEIN UA (BEAKER) (test acym=975) 20 mg/dL Negative GLUCOSE UA (BEAKER) (test nlvw=752) Negative Negative KETONES UA (BEAKER) (test krbv=350) Negative Negative BILIRUBIN UA (BEAKER) (test spil=960) Negative Negative BLOOD UA (BEAKER) (test bzcc=420) Negative Negative NITRITE UA (BEAKER) (test ipwy=103) Negative Negative LEUKOCYTE ESTERASE UA (BEAKER) (test Negative Negative ktjg=883) UROBILINOGEN UA (BEAKER) (test ripj=796) 12.0 mg/dL 0.2-1.0 RBC UA (BEAKER) (test vorn=190) < /HPF WBC UA (BEAKER) (test bvvz=274) 1 /HPF BACTERIA (BEAKER) (test vrtc=794) Rare SQUAMOUS EPITHELIAL (BEAKER) (test 3 /HPF ygai=767) SOURCE(BEAKER) (test tzwu=5860) Urine, Clean Catch POCT-GLUCOSE [id number] 16:55:00 Test Item Value Reference Range Comments POC-GLUCOSE METER (BEAKER) 186 mg/dL 70-110 TESTED AT [address] (test aepq=4251) [facility] [address] TISSUE [id number] 15:15:00Surgical Pathology Report Case: [id number] Authorizing Provider: Shannen Giron MD Collected: 05/28/2019 1448 Ordering Location: [address] Received: 05/29/2019 0915 Service Pathologist: Padilla Reed MD Specimen: Polyp, Colon - Right/Ascending, taken by erinned hardy PART A RIGHT ASCENDING COLON POLYP, POLYPECTOMY:TUBULAR ADENOMA. Signing Pathologist Direct Phone Line: [phone] signed by Padilla Reed MD on 05/29/2019 at 3:15 [id number] colonoscopyRight ascending colonReceived in formalin, labelled with the patients name, date of , and medical record number and labelled "right ascending colon polyp" are three portions of silva tissue measuring 0.5 x 0.4 x 0.3 cm in aggregate. Submitted in toto in one cassette. Performed.BODY FLUID CULTURE + GRAM [id number] 12:56:00 Test Item Value Reference Range Comments CULTURE (BEAKER) (test sknf=2127) No growth GRAM STAIN RESULT (BEAKER) (test No WBCs mfry=8494) GRAM STAIN RESULT (BEAKER) (test No organisms seen ntmi=98810) POCT-GLUCOSE [id number] 12:37:00 Test Item Value Reference Range Comments POC-GLUCOSE METER (BEAKER) 154 mg/dL 70-110 TESTED AT [address] (test vben=7328) [facility] [address] POCT-GLUCOSE [id number] 09:12:00 Test Item Value Reference Range Comments POC-GLUCOSE METER (BEAKER) 76 mg/dL 70-110 TESTED AT [address] (test vecl=5269) [place] [id number] COMPREHENSIVE METABOLIC [id number] 08:19:00 Test Item Value Reference Range Comments TOTAL PROTEIN (BEAKER) 4.9 gm/dL 6.0-8.3 (test hqww=420) ALBUMIN (BEAKER) (test 3.0 g/dL 3.5-5.0 riiz=1029) ALKALINE PHOSPHATASE 88 U/L 40-150 (BEAKER) (test wagq=286) BILIRUBIN TOTAL (BEAKER) 1.9 mg/dL 0.2-1.2 (test mrbk=762) SODIUM (BEAKER) (test 141 meq/L 136-145 pgqx=608) POTASSIUM (BEAKER) (test 3.5 meq/L 3.5-5.1 cdyz=054) CHLORIDE (BEAKER) (test 100 meq/L 98-107 jkez=221) CO2 (BEAKER) (test 34 meq/L 22-29 vahj=490) BLOOD UREA NITROGEN 18 mg/dL 7-21 (BEAKER) (test qzis=255) CREATININE (BEAKER) (test 1.50 mg/dL 0.57-1.25 wuqp=632) GLUCOSE RANDOM (BEAKER) 92 mg/dL 70-105 (test faqh=167) CALCIUM (BEAKER) (test 8.5 mg/dL 8.4-10.2 mytw=450) AST (SGOT) (BEAKER) (test 27 U/L 5-34 udbj=713) ALT (SGPT) (BEAKER) (test 10 U/L 6-55 xnck=662) EGFR (BEAKER) (test 35 mL/min/1.73 sq m ESTIMATED GFR IS NOT jimw=7272) ACCURATE CREATININE CLEARANCE IN PREDICTING GLOMERULAR FILTRATION RATE. ESTIMATED GFR IS NOT APPLICABLE FOR DIALYSIS PATIENTS. Specimen slightly [id number] 08:18:00 Test Item Value Reference Range Comments PHOSPHORUS (BEAKER) (test hwdn=745) 2.8 mg/dL 2.3-4.7 [id number] 08:18:00 Test Item Value Reference Range Comments MAGNESIUM (BEAKER) (test tnbo=914) 2.0 mg/dL 1.6-2.6 CBC W/PLT COUNT & AUTO [id number] 05:59:00 Test Item Value Reference Range Comments WHITE BLOOD CELL COUNT (BEAKER) (test fgyo=807) 5.3 K/ L 3.5-10.5 RED BLOOD CELL COUNT (BEAKER) (test wqvl=793) 2.79 M/ L 3.93-5.22 HEMOGLOBIN (BEAKER) (test slbt=968) 7.7 GM/DL 11.2-15.7 HEMATOCRIT (BEAKER) (test bfuo=501) 24.8 % 34.1-44.9 MEAN CORPUSCULAR VOLUME (BEAKER) (test ygtz=867) 88.9 fL 79.4-94.8 MEAN CORPUSCULAR HEMOGLOBIN (BEAKER) (test 27.6 pg 25.6-32.2 yhyl=543) MEAN CORPUSCULAR HEMOGLOBIN CONC (BEAKER) (test 31.0 GM/DL 32.2-35.5 kase=861) RED CELL DISTRIBUTION WIDTH (BEAKER) (test 17.6 % 11.7-14.4 mtov=830) PLATELET COUNT (BEAKER) (test urzb=322) 146 K/CU MM 150-450 MEAN PLATELET VOLUME (BEAKER) (test gllb=197) 9.6 fL 9.4-12.3 NUCLEATED RED BLOOD CELLS (BEAKER) (test 0 /100 WBC 0-0 lsdu=880) NEUTROPHILS RELATIVE PERCENT (BEAKER) (test 46 % ehgq=936) LYMPHOCYTES RELATIVE PERCENT (BEAKER) (test 31 % teqv=462) MONOCYTES RELATIVE PERCENT (BEAKER) (test 11 % wtci=878) EOSINOPHILS RELATIVE PERCENT (BEAKER) (test 10 % wouv=451) BASOPHILS RELATIVE PERCENT (BEAKER) (test 2 % qbto=188) NEUTROPHILS ABSOLUTE COUNT (BEAKER) (test 2.46 K/ L 1.56-6.13 irwx=526) LYMPHOCYTES ABSOLUTE COUNT (BEAKER) (test 1.66 K/ L 1.18-3.74 flny=182) MONOCYTES ABSOLUTE COUNT (BEAKER) (test 0.57 K/ L 0.24-0.36 ivmv=402) EOSINOPHILS ABSOLUTE COUNT (BEAKER) (test 0.52 K/ L 0.04-0.36 quqh=961) BASOPHILS ABSOLUTE COUNT (BEAKER) (test 0.08 K/ L 0.01-0.08 gsgs=782) IMMATURE GRANULOCYTES-RELATIVE PERCENT (BEAKER) 0 % 0-1 (test iiwz=8653) CALCIUM, [id number] 05:04:00 Test Item Value Reference Range Comments CALCIUM IONIZED (BEAKER) (test jcda=886) 1.02 mmol/L 1.12-1.27 PH, BLOOD (BEAKER) (test lmyl=4868) 7.50 POCT-GLUCOSE [id number] 21:27:00 Test Item Value Reference Range Comments POC-GLUCOSE METER (BEAKER) 139 mg/dL 70-110 TESTED AT [address] (test cqws=5588) [facility] [address] BASIC METABOLIC [id number] 18:28:00 Test Item Value Reference Range Comments SODIUM (BEAKER) (test 142 meq/L 136-145 ijcu=110) POTASSIUM (BEAKER) (test 3.5 meq/L 3.5-5.1 tapm=655) CHLORIDE (BEAKER) (test 99 meq/L 98-107 qinl=366) CO2 (BEAKER) (test 37 meq/L 22-29 zywe=950) BLOOD UREA NITROGEN 17 mg/dL 7-21 (BEAKER) (test fvkz=612) CREATININE (BEAKER) (test 1.38 mg/dL 0.57-1.25 mmac=094) GLUCOSE RANDOM (BEAKER) 78 mg/dL 70-105 (test jiwu=158) CALCIUM (BEAKER) (test 8.5 mg/dL 8.4-10.2 nmqn=927) EGFR (BEAKER) (test 39 mL/min/1.73 sq m ESTIMATED GFR IS NOT kkko=7073) ACCURATE CREATININE CLEARANCE IN PREDICTING GLOMERULAR FILTRATION RATE. ESTIMATED GFR IS NOT APPLICABLE FOR DIALYSIS PATIENTS. Call [id number] with resultsSpecimen slightly ictericPOCT-GLUCOSE [id number] 18:10:00 Test Item Value Reference Range Comments POC-GLUCOSE METER (BEAKER) 82 mg/dL 70-110 TESTED AT [address] (test fobh=9405) [place] [id number] CBC W/PLT COUNT & AUTO [id number] 11:56:00 Test Item Value Reference Range Comments WHITE BLOOD CELL COUNT (BEAKER) (test mxom=375) 5.0 K/ L 3.5-10.5 RED BLOOD CELL COUNT (BEAKER) (test sxns=457) 2.82 M/ L 3.93-5.22 HEMOGLOBIN (BEAKER) (test dedy=151) 7.9 GM/DL 11.2-15.7 HEMATOCRIT (BEAKER) (test ezyf=409) 25.0 % 34.1-44.9 MEAN CORPUSCULAR VOLUME (BEAKER) (test ovup=569) 88.7 fL 79.4-94.8 MEAN CORPUSCULAR HEMOGLOBIN (BEAKER) (test 28.0 pg 25.6-32.2 gkas=789) MEAN CORPUSCULAR HEMOGLOBIN CONC (BEAKER) (test 31.6 GM/DL 32.2-35.5 mmdt=796) RED CELL DISTRIBUTION WIDTH (BEAKER) (test 17.6 % 11.7-14.4 bixh=322) PLATELET COUNT (BEAKER) (test vcdt=459) 155 K/CU MM 150-450 MEAN PLATELET VOLUME (BEAKER) (test vywx=744) 9.5 fL 9.4-12.3 NUCLEATED RED BLOOD CELLS (BEAKER) (test 0 /100 WBC 0-0 ankp=759) (CELLAVISION MANUAL DIFF)2019-05-28 11:56:00 Test Item Value Reference Range Comments NEUTROPHILS - REL (CELLAVISION)(BEAKER) (test 69 % rrlk=3058) LYMPHOCYTES - REL (CELLAVISION)(BEAKER) (test 21 % vjdc=4361) MONOCYTES - REL (CELLAVISION)(BEAKER) (test 3 % swzu=7747) EOSINOPHILS - REL (CELLAVISION)(BEAKER) (test 5 % vuee=5582) BASOPHILS - REL (CELLAVISION)(BEAKER) (test 1 % qbbl=2860) MYELOCYTES - REL (CELLAVISION)(BEAKER) (test 1 % 0-0 vgya=5075) NEUTROPHILS - ABS (CELLAVISION)(BEAKER) (test 3.45 K/ul 1.56-6.13 hzvt=9787) LYMPHOCYTES - ABS (CELLAVISION)(BEAKER) (test 1.05 K/ul 1.18-3.74 ogku=0619) MONOCYTES - ABS (CELLAVISION)(BEAKER) (test 0.15 K/uL 0.24-0.36 arhp=7092) EOSINOPHILS - ABS (CELLAVISION)(BEAKER) (test 0.25 K/uL 0.04-0.36 oslx=0889) BASOPHILS - ABS (CELLAVISION)(BEAKER) (test 0.05 K/uL 0.01-0.08 ando=7849) MYELOCYTES-ABS (CELLAVISION)(BEAKER) (test 0.05 K/uL 0.00-0.00 tiuc=1231) TOTAL COUNTED (BEAKER) (test llfg=8552) 100 PLT MORPHOLOGY (BEAKER) (test cxme=589) Normal SMUDGE CELLS (BEAKER) (test nhni=1962) Present POLYCHROMATOPHILLIC RBCS(BEAKER) (test umxm=543) 1+ few ANISOCYTOSIS (BEAKER) (test qvyd=041) 2+ moderate MICROCYTES (BEAKER) (test dcnq=844) 2+ moderate POIKILOCYTES (BEAKER) (test gjwx=186) 1+ few SPHEROCYTES (BEAKER) (test vqwi=636) 1+ few PLATELET CONCENTRATION (CELLAVISION)(BEAKER) Adequate (test bsqw=6139) Received comment: User comments: Slide comments:POCT-GLUCOSE [id number] 10: 05:00 Test Item Value Reference Range Comments POC-GLUCOSE METER (BEAKER) 82 mg/dL 70-[address] [facility] [address] [place] [address] (test vkoc=7906) [facility] [address] POCT-GLUCOSE [id number] 09:07:00 Test Item Value Reference Range Comments POC-GLUCOSE METER (BEAKER) 84 mg/dL 70-110 TESTED AT [place] [id number] [facility] (test iczf=7028) [facility] [address] [id number] 06:31:00 Test Item Value Reference Range Comments PHOSPHORUS (BEAKER) (test llua=959) 2.5 mg/dL 2.3-4.7 [id number] 06:31:00 Test Item Value Reference Range Comments MAGNESIUM (BEAKER) (test brdx=883) 1.7 mg/dL 1.6-2.6 COMPREHENSIVE METABOLIC [id number] 06:31:00 Test Item Value Reference Range Comments TOTAL PROTEIN (BEAKER) 4.9 gm/dL 6.0-8.3 (test tjph=882) ALBUMIN (BEAKER) (test 3.1 g/dL 3.5-5.0 tlhy=8541) ALKALINE PHOSPHATASE 82 U/L 40-150 (BEAKER) (test nvwe=678) BILIRUBIN TOTAL (BEAKER) 2.3 mg/dL 0.2-1.2 (test snkl=572) SODIUM (BEAKER) (test 143 meq/L 136-145 dvrz=408) POTASSIUM (BEAKER) (test 3.5 meq/L 3.5-5.1 zixq=155) CHLORIDE (BEAKER) (test 100 meq/L 98-107 jlxg=082) CO2 (BEAKER) (test 37 meq/L 22-29 tznh=923) BLOOD UREA NITROGEN 16 mg/dL 7-21 (BEAKER) (test smbb=559) CREATININE (BEAKER) (test 1.37 mg/dL 0.57-1.25 awum=668) GLUCOSE RANDOM (BEAKER) 96 mg/dL 70-105 (test vzxq=284) CALCIUM (BEAKER) (test 8.6 mg/dL 8.4-10.2 sbni=814) AST (SGOT) (BEAKER) (test 30 U/L 5-34 osky=043) ALT (SGPT) (BEAKER) (test 10 U/L 6-55 rske=091) EGFR (BEAKER) (test 39 mL/min/1.73 sq m ESTIMATED GFR IS NOT sztq=2452) ACCURATE CREATININE CLEARANCE IN PREDICTING GLOMERULAR FILTRATION RATE. ESTIMATED GFR IS NOT APPLICABLE FOR DIALYSIS PATIENTS. Specimen slightly ictericB-TYPE NATRIURETIC FACTOR (BNP)2019-05-28 06:19:00 Test Item Value Reference Range Comments B-TYPE NATRIURETIC PEPTIDE (BEAKER) (test 381 pg/mL 0-100 rcje=342) CALCIUM, [id number] 05:25:00 Test Item Value Reference Range Comments CALCIUM IONIZED (BEAKER) (test xtmq=100) 1.03 mmol/L 1.12-1.27 PH, BLOOD (BEAKER) (test lqzs=8366) 7.49 POCT-GLUCOSE [id number] 22:42:00 Test Item Value Reference Range Comments POC-GLUCOSE METER (BEAKER) 174 mg/dL 70-[address] [facility] [address] [facility] (test wgyv=2389) [facility] [address] [id number] 17:57:00 Test Item Value Reference Range Comments SODIUM (BEAKER) (test arew=835) 140 meq/L 136-145 POTASSIUM (BEAKER) (test 3.9 meq/L 3.5-5.1 Specimen slightly hemolyzed xxya=234) CHLORIDE (BEAKER) (test 99 meq/L 98-107 dllf=006) CO2 (BEAKER) (test pztt=265) 35 meq/L 22-29 Call [id number] 17:50:00 Test Item Value Reference Range Comments POC-GLUCOSE METER (BEAKER) 151 mg/dL 70-110 TESTED AT [address] (test nlyj=8134) [facility] [address] POCT-GLUCOSE [id number] 12:36:00 Test Item Value Reference Range Comments POC-GLUCOSE METER (BEAKER) 123 mg/dL 70-110 TESTED AT [address] (test dxes=2021) [facility] [address] POCT-GLUCOSE [id number] 08:15:00 Test Item Value Reference Range Comments POC-GLUCOSE METER (BEAKER) 121 mg/dL 70-110 TESTED AT [address] (test gxhu=1806) [facility] [address] [id number] 07:00:00 Test Item Value Reference Range Comments PHOSPHORUS (BEAKER) (test auin=820) 1.9 mg/dL 2.3-4.7 [id number] 07:00:00 Test Item Value Reference Range Comments MAGNESIUM (BEAKER) (test rgat=050) 1.6 mg/dL 1.6-2.6 COMPREHENSIVE METABOLIC [id number] 07:00:00 Test Item Value Reference Range Comments TOTAL PROTEIN (BEAKER) 4.9 gm/dL 6.0-8.3 (test avqb=260) ALBUMIN (BEAKER) (test 3.1 g/dL 3.5-5.0 hokd=5689) ALKALINE PHOSPHATASE 75 U/L 40-150 (BEAKER) (test qfkt=381) BILIRUBIN TOTAL (BEAKER) 1.9 mg/dL 0.2-1.2 (test bcyp=150) SODIUM (BEAKER) (test 139 meq/L 136-145 bpwv=952) POTASSIUM (BEAKER) (test 4.3 meq/L 3.5-5.1 dpcf=391) CHLORIDE (BEAKER) (test 99 meq/L 98-107 rurv=054) CO2 (BEAKER) (test 37 meq/L 22-29 drbq=376) BLOOD UREA NITROGEN 16 mg/dL 7-21 (BEAKER) (test gegr=192) CREATININE (BEAKER) (test 1.29 mg/dL 0.57-1.25 ckys=597) GLUCOSE RANDOM (BEAKER) 139 mg/dL 70-105 (test dckw=761) CALCIUM (BEAKER) (test 8.5 mg/dL 8.4-10.2 npjh=813) AST (SGOT) (BEAKER) (test 23 U/L 5-34 hxco=363) ALT (SGPT) (BEAKER) (test 8 U/L 6-55 qvgd=319) EGFR (BEAKER) (test 42 mL/min/1.73 sq m ESTIMATED GFR IS NOT ggur=3603) ACCURATE CREATININE CLEARANCE IN PREDICTING GLOMERULAR FILTRATION RATE. ESTIMATED GFR IS NOT APPLICABLE FOR DIALYSIS PATIENTS. Specimen slightly ictericCBC W/PLT COUNT & AUTO [id number] 06:20 :00 Test Item Value Reference Range Comments WHITE BLOOD CELL COUNT (BEAKER) (test bbak=379) 4.7 K/ L 3.5-10.5 RED BLOOD CELL COUNT (BEAKER) (test rifk=245) 2.71 M/ L 3.93-5.22 HEMOGLOBIN (BEAKER) (test mvrv=939) 7.5 GM/DL 11.2-15.7 HEMATOCRIT (BEAKER) (test bkxf=346) 23.9 % 34.1-44.9 MEAN CORPUSCULAR VOLUME (BEAKER) (test zmku=388) 88.2 fL 79.4-94.8 MEAN CORPUSCULAR HEMOGLOBIN (BEAKER) (test 27.7 pg 25.6-32.2 ahtg=862) MEAN CORPUSCULAR HEMOGLOBIN CONC (BEAKER) (test 31.4 GM/DL 32.2-35.5 omwf=369) RED CELL DISTRIBUTION WIDTH (BEAKER) (test 17.6 % 11.7-14.4 bxax=774) PLATELET COUNT (BEAKER) (test rsdz=529) 137 K/CU MM 150-450 MEAN PLATELET VOLUME (BEAKER) (test espq=781) 9.6 fL 9.4-12.3 NUCLEATED RED BLOOD CELLS (BEAKER) (test 0 /100 WBC 0-0 maym=151) NEUTROPHILS RELATIVE PERCENT (BEAKER) (test 45 % zuuq=027) LYMPHOCYTES RELATIVE PERCENT (BEAKER) (test 33 % nids=071) MONOCYTES RELATIVE PERCENT (BEAKER) (test 12 % pwzd=012) EOSINOPHILS RELATIVE PERCENT (BEAKER) (test 9 % mkgb=176) BASOPHILS RELATIVE PERCENT (BEAKER) (test 1 % ujub=542) NEUTROPHILS ABSOLUTE COUNT (BEAKER) (test 2.13 K/ L 1.56-6.13 jkjp=942) LYMPHOCYTES ABSOLUTE COUNT (BEAKER) (test 1.56 K/ L 1.18-3.74 ppvo=509) MONOCYTES ABSOLUTE COUNT (BEAKER) (test 0.57 K/ L 0.24-0.36 sutu=690) EOSINOPHILS ABSOLUTE COUNT (BEAKER) (test 0.41 K/ L 0.04-0.36 szvb=442) BASOPHILS ABSOLUTE COUNT (BEAKER) (test 0.05 K/ L 0.01-0.08 fxbu=958) IMMATURE GRANULOCYTES-RELATIVE PERCENT (BEAKER) 0 % 0-1 (test jleb=9023) CALCIUM, [id number] 05:29:00 Test Item Value Reference Range Comments CALCIUM IONIZED (BEAKER) (test wpav=653) 1.02 mmol/L 1.12-1.27 PH, BLOOD (BEAKER) (test fgba=0298) 7.53 POCT-GLUCOSE [id number] 22:13:00 Test Item Value Reference Range Comments POC-GLUCOSE METER (BEAKER) 315 mg/dL 70-110 Notified ALEXI ENNIS/TESTED AT [facility] (test swoh=3726) [address] [place] [id number] POCT-GLUCOSE [id number] 18:43:00 Test Item Value Reference Range Comments POC-GLUCOSE METER (BEAKER) 204 mg/dL 70-110 TESTED AT [address] (test lnhn=4418) [facility] [address] U/S, [id number] 17:14:00Reason for exam:->ascitesFINAL REPORT Ultrasound guided paracentesis. Clinical History: Ascites. Sedation: None. Operators: This procedure was performed by SARIKA Lee under direct supervision of Akil Chung M.D. Stripper Soft Plastic: None. Estimated Blood Loss: < 1 cc. [...] was achieved with 2% lidocaine, a 5 [place] one-step catheter was advanced into the peritoneal cavity under ultrasound guidance. After completion of drainage, the catheter was removed. There was no evidence of complication. Impression:Successful ultrasound guided paracentesis. Signed: Akil Chung MDReport Verified Date/Time: 05/26/2019 17:14:25 Reading Location : [facility] [id number] Ultrasound Reading Room U/S, [id number] 17:12:00Reason for exam:->ascitesFINAL REPORT Ultrasound guided paracentesis Clinical History: Ascites. Sedation: None. Black Powder Glazing Operator: Micheline Pena PA-C Supervising Physician: Shravan Ruiz MD Stripper Soft Plastic: None. Estimated Blood Loss: < 1 mL. [...] anesthesia was achieved with lidocaine, a 5 [place] one-step catheter was advanced into theperitoneal cavity under ultrasound guidance. After completion of drainage, the catheter was removed.There was no evidence of complication. Impression:Successful ultrasound guided paracentesis. Signed:Shravan Ruiz MDReport Verified Date/Time: 05/26/2019 17:12:51 Reading Location: [facility] [id number] Ultrasound Reading Room POCT-GLUCOSE [id number] 17:02: 00 Test Item Value Reference Range Comments POC-GLUCOSE METER (BEAKER) 204 mg/dL 70-110 TESTED AT [address] (test zdsr=4980) [place] [address] POCT-GLUCOSE [id number] 13:52:00 Test Item Value Reference Range Comments POC-GLUCOSE METER (BEAKER) 185 mg/dL 70-110 TESTED AT [address] (test gczw=1329) [place] [address] BODY FLUID CELL COUNT WITH [id number] 13:12:00 Test Item Value Reference Range Comments APPEARANCE FLUID (BEAKER) (test nglw=279) Slightly Hazy Clear COLOR FLUID (BEAKER) (test tfdn=256) Yellow Colorless, Straw RBC FLUID (BEAKER) (test hzjb=770) 3000 /cu mm <=1 ADJUSTED WBC FLUID (BEAKER) (test tgeg=7624) 107 /cu mm <=5 LINING CELLS (BEAKER) (test ztdt=4383) 13 /cu mm <=1 NEUTROPHILS FLUID (BEAKER) (test vbsj=7650) 0 % LYMPHS FLUID (BEAKER) (test gfll=848) 21 % MONO/MACROPHAGE FLUID (BEAKER) (test 78 % enql=378) EOSINOPHILS FLUID (BEAKER) (test rqtc=018) 1 % BASO FLUID (BEAKER) (test hguo=730) 0 % CONTAINER BODY FLUID (BEAKER) (test EDTA Tube qqvf=2773) POCT-GLUCOSE [id number] 08:40:00 Test Item Value Reference Range Comments POC-GLUCOSE METER (BEAKER) 113 mg/dL 70-110 TESTED AT [address] (test qiav=7604) [place] [address] [id number] 07:18:00 Test Item Value Reference Range Comments T3 TOTAL (BEAKER) (test 34 ng/dL 48-159 Performed at [facility]. Refer. yirv=129) Range:76-181 [id number] 05:45:00 Test Item Value Reference Range Comments PHOSPHORUS (BEAKER) (test flze=415) 1.7 mg/dL 2.3-4.7 [id number] 05:45:00 Test Item Value Reference Range Comments MAGNESIUM (BEAKER) (test ktha=213) 1.8 mg/dL 1.6-2.6 COMPREHENSIVE METABOLIC [id number] 05:45:00 Test Item Value Reference Range Comments TOTAL PROTEIN (BEAKER) 5.1 gm/dL 6.0-8.3 (test osnd=886) ALBUMIN (BEAKER) (test 3.1 g/dL 3.5-5.0 ybvo=6702) ALKALINE PHOSPHATASE 88 U/L 40-150 (BEAKER) (test ymfz=637) BILIRUBIN TOTAL (BEAKER) 1.6 mg/dL 0.2-1.2 (test ntur=446) SODIUM (BEAKER) (test 140 meq/L 136-145 fkdr=039) POTASSIUM (BEAKER) (test 3.8 meq/L 3.5-5.1 ecjs=621) CHLORIDE (BEAKER) (test 100 meq/L 98-107 mnqe=473) CO2 (BEAKER) (test 36 meq/L 22-29 zljf=422) BLOOD UREA NITROGEN 16 mg/dL 7-21 (BEAKER) (test verw=770) CREATININE (BEAKER) (test 1.37 mg/dL 0.57-1.25 itiu=117) GLUCOSE RANDOM (BEAKER) 159 mg/dL 70-105 (test vkzk=289) CALCIUM (BEAKER) (test 8.4 mg/dL 8.4-10.2 lsjc=971) AST (SGOT) (BEAKER) (test 26 U/L 5-34 phos=071) ALT (SGPT) (BEAKER) (test 10 U/L 6-55 cikz=903) EGFR (BEAKER) (test 39 mL/min/1.73 sq m ESTIMATED GFR IS NOT xfrw=0169) ACCURATE CREATININE CLEARANCE IN PREDICTING GLOMERULAR FILTRATION RATE. ESTIMATED GFR IS NOT APPLICABLE FOR DIALYSIS PATIENTS. CALCIUM, [id number] 05:11:00 Test Item Value Reference Range Comments CALCIUM IONIZED (BEAKER) (test ihzp=116) 0.99 mmol/L 1.12-1.27 PH, BLOOD (BEAKER) (test bjzd=4436) 7.57 CBC W/PLT COUNT & AUTO [id number] 05:04:00 Test Item Value Reference Range Comments WHITE BLOOD CELL COUNT (BEAKER) (test xelq=173) 4.6 K/ L 3.5-10.5 RED BLOOD CELL COUNT (BEAKER) (test dsli=689) 2.81 M/ L 3.93-5.22 HEMOGLOBIN (BEAKER) (test yxfc=052) 7.8 GM/DL 11.2-15.7 HEMATOCRIT (BEAKER) (test axxn=565) 24.6 % 34.1-44.9 MEAN CORPUSCULAR VOLUME (BEAKER) (test xlxo=606) 87.5 fL 79.4-94.8 MEAN CORPUSCULAR HEMOGLOBIN (BEAKER) (test 27.8 pg 25.6-32.2 tqoa=741) MEAN CORPUSCULAR HEMOGLOBIN CONC (BEAKER) (test 31.7 GM/DL 32.2-35.5 dkvs=181) RED CELL DISTRIBUTION WIDTH (BEAKER) (test 17.2 % 11.7-14.4 fqar=597) PLATELET COUNT (BEAKER) (test ahgb=382) 129 K/CU MM 150-450 MEAN PLATELET VOLUME (BEAKER) (test hecu=720) 9.0 fL 9.4-12.3 NUCLEATED RED BLOOD CELLS (BEAKER) (test 0 /100 WBC 0-0 hskx=903) NEUTROPHILS RELATIVE PERCENT (BEAKER) (test 47 % rwhi=653) LYMPHOCYTES RELATIVE PERCENT (BEAKER) (test 29 % nuxn=866) MONOCYTES RELATIVE PERCENT (BEAKER) (test 13 % ljjh=824) EOSINOPHILS RELATIVE PERCENT (BEAKER) (test 11 % krbw=129) BASOPHILS RELATIVE PERCENT (BEAKER) (test 1 % aizp=653) NEUTROPHILS ABSOLUTE COUNT (BEAKER) (test 2.17 K/ L 1.56-6.13 xzyy=646) LYMPHOCYTES ABSOLUTE COUNT (BEAKER) (test 1.32 K/ L 1.18-3.74 pthn=831) MONOCYTES ABSOLUTE COUNT (BEAKER) (test 0.58 K/ L 0.24-0.36 jdid=189) EOSINOPHILS ABSOLUTE COUNT (BEAKER) (test 0.49 K/ L 0.04-0.36 palr=337) BASOPHILS ABSOLUTE COUNT (BEAKER) (test 0.06 K/ L 0.01-0.08 xjnu=080) IMMATURE GRANULOCYTES-RELATIVE PERCENT (BEAKER) 0 % 0-1 (test nzpl=2406) POCT-GLUCOSE [id number] 23:10:00 Test Item Value Reference Range Comments POC-GLUCOSE METER (BEAKER) 239 mg/dL 70-110 TESTED AT [address] (test kkrb=4815) [place] [address] [id number] 19:02:00 Test Item Value Reference Range Comments SODIUM (BEAKER) (test xazo=961) 138 meq/L 136-145 POTASSIUM (BEAKER) (test vuwu=418) 3.7 meq/L 3.5-5.1 CHLORIDE (BEAKER) (test ezvu=395) 100 meq/L 98-107 CO2 (BEAKER) (test qixs=741) 31 meq/L 22-29 Call [id number] with resultsPOCT-GLUCOSE [id number] 16:50:00 Test Item Value Reference Range Comments POC-GLUCOSE METER (BEAKER) 203 mg/dL 70-110 TESTED AT [address] (test dxhx=7524) [place] [address] POCT-GLUCOSE [id number] 12:49:00 Test Item Value Reference Range Comments POC-GLUCOSE METER (BEAKER) 219 mg/dL 70-110 TESTED AT [address] (test pawl=6036) [place] [address] ANTI-NUCLEAR ANTIBODY (QUE)2019-05-25 10:03:00 Test Item Value Reference Range Comments ANTI-NUCLEAR ANTIBODY (QUE) (BEAKER) (test Negative Negative nigt=633) Test performed by IFA method.Test performed by IFA method.POCT-GLUCOSE [id number] 08:54:00 Test Item Value Reference Range Comments POC-GLUCOSE METER (BEAKER) 125 mg/dL 70-110 TESTED AT [address] (test zxfj=5525) [place] [address] BASIC METABOLIC [id number] 07:41:00 Test Item Value Reference Range Comments SODIUM (BEAKER) (test 141 meq/L 136-145 wcfn=889) POTASSIUM (BEAKER) (test 3.0 meq/L 3.5-5.1 noei=058) CHLORIDE (BEAKER) (test 101 meq/L 98-107 tpib=806) CO2 (BEAKER) (test 35 meq/L 22-29 setv=345) BLOOD UREA NITROGEN 16 mg/dL 7-21 (BEAKER) (test vzgb=498) CREATININE (BEAKER) (test 1.31 mg/dL 0.57-1.25 xmrd=374) GLUCOSE RANDOM (BEAKER) 136 mg/dL 70-105 (test adsk=100) CALCIUM (BEAKER) (test 7.9 mg/dL 8.4-10.2 trev=816) EGFR (BEAKER) (test 41 mL/min/1.73 sq m ESTIMATED GFR IS NOT hatf=4097) ACCURATE CREATININE CLEARANCE IN PREDICTING GLOMERULAR FILTRATION RATE. ESTIMATED GFR IS NOT APPLICABLE FOR DIALYSIS PATIENTS. [id number] 07:32:00 Test Item Value Reference Range Comments PHOSPHORUS (BEAKER) (test fkak=539) 2.0 mg/dL 2.3-4.7 [id number] 07:32:00 Test Item Value Reference Range Comments MAGNESIUM (BEAKER) (test mnhr=635) 1.6 mg/dL 1.6-2.6 HEPATIC FUNCTION [id number] 07:32:00 Test Item Value Reference Range Comments TOTAL PROTEIN (BEAKER) (test owoa=310) 4.9 gm/dL 6.0-8.3 ALBUMIN (BEAKER) (test pimf=5890) 3.0 g/dL 3.5-5.0 BILIRUBIN TOTAL (BEAKER) (test wrbs=243) 1.4 mg/dL 0.2-1.2 BILIRUBIN DIRECT (BEAKER) (test pgbn=823) 0.7 mg/dL 0.1-0.5 ALKALINE PHOSPHATASE (BEAKER) (test hote=766) 86 U/L 40-150 AST (SGOT) (BEAKER) (test mhcj=625) 25 U/L 5-34 ALT (SGPT) (BEAKER) (test edux=894) 10 U/L 6-55 CBC W/PLT COUNT & AUTO [id number] 06:11:00 Test Item Value Reference Range Comments WHITE BLOOD CELL COUNT (BEAKER) (test gxud=323) 4.2 K/ L 3.5-10.5 RED BLOOD CELL COUNT (BEAKER) (test qups=480) 2.68 M/ L 3.93-5.22 HEMOGLOBIN (BEAKER) (test zrpi=891) 7.4 GM/DL 11.2-15.7 HEMATOCRIT (BEAKER) (test dhyv=173) 23.5 % 34.1-44.9 MEAN CORPUSCULAR VOLUME (BEAKER) (test cwuv=907) 87.7 fL 79.4-94.8 MEAN CORPUSCULAR HEMOGLOBIN (BEAKER) (test 27.6 pg 25.6-32.2 ztta=492) MEAN CORPUSCULAR HEMOGLOBIN CONC (BEAKER) (test 31.5 GM/DL 32.2-35.5 pntc=405) RED CELL DISTRIBUTION WIDTH (BEAKER) (test 18.2 % 11.7-14.4 uypf=637) PLATELET COUNT (BEAKER) (test glif=997) 140 K/CU MM 150-450 MEAN PLATELET VOLUME (BEAKER) (test udtt=584) 10.3 fL 9.4-12.3 NUCLEATED RED BLOOD CELLS (BEAKER) (test 0 /100 WBC 0-0 nluz=216) NEUTROPHILS RELATIVE PERCENT (BEAKER) (test 44 % lvyx=310) LYMPHOCYTES RELATIVE PERCENT (BEAKER) (test 33 % elkf=510) MONOCYTES RELATIVE PERCENT (BEAKER) (test 12 % toez=930) EOSINOPHILS RELATIVE PERCENT (BEAKER) (test 10 % krmm=497) BASOPHILS RELATIVE PERCENT (BEAKER) (test 2 % jbsu=888) NEUTROPHILS ABSOLUTE COUNT (BEAKER) (test 1.82 K/ L 1.56-6.13 ogio=991) LYMPHOCYTES ABSOLUTE COUNT (BEAKER) (test 1.36 K/ L 1.18-3.74 eqdm=031) MONOCYTES ABSOLUTE COUNT (BEAKER) (test 0.48 K/ L 0.24-0.36 fiqj=409) EOSINOPHILS ABSOLUTE COUNT (BEAKER) (test 0.42 K/ L 0.04-0.36 rkom=034) BASOPHILS ABSOLUTE COUNT (BEAKER) (test 0.07 K/ L 0.01-0.08 esqb=221) IMMATURE GRANULOCYTES-RELATIVE PERCENT (BEAKER) 0 % 0-1 (test zigb=1106) PROTHROMBIN [id number] 05:31:00 Test Item Value Reference Range Comments PROTIME (BEAKER) (test istq=821) 14.8 seconds 11.9-14.2 INR (BEAKER) (test kqkd=760) 1.2 <=5.9 Effective 04/01/2019: PT Reference Range ChangeNew: 11.9-14.2 Previous: 11.7- 14.7RECOMMENDED COUMADIN/WARFARIN INR THERAPY RANGESSTANDARD DOSE: 2.0-3.0 Includes: PROPHYLAXIS for venous thrombosis, systemic embolization; TREATMENT for venous thrombosis and/or pulmonary embolus.HIGH RISK: Target INR is2.5-3.5 for patients wiht mechanical heart valves.BLOOD [id number] 02:01:00 Test Item Value Reference Range Comments CULTURE (BEAKER) (test uchq=7509) No growth in 5 days BLOOD [id number] 02:01:00 Test Item Value Reference Range Comments CULTURE (BEAKER) (test qczq=0794) No growth in 5 days POCT-GLUCOSE [id number] 23:07:00 Test Item Value Reference Range Comments POC-GLUCOSE METER (BEAKER) 217 mg/dL 70-110 TESTED AT [address] (test lezs=7222) [place] [id number] POCT-GLUCOSE [id number] 17:54:00 Test Item Value Reference Range Comments POC-GLUCOSE METER (BEAKER) 138 mg/dL 70-110 TESTED AT [address] (test dclu=0109) [facility] [address] POCT-GLUCOSE [id number] 12:22:00 Test Item Value Reference Range Comments POC-GLUCOSE METER (BEAKER) 114 mg/dL 70-110 TESTED AT [address] (test cdcy=7942) [facility] [address] POCT-GLUCOSE [id number] 07:39:00 Test Item Value Reference Range Comments POC-GLUCOSE METER (BEAKER) 124 mg/dL 70-110 TESTED AT [address] (test ioeo=0305) [facility] [address] HEPATIC FUNCTION [id number] 05:49:00 Test Item Value Reference Range Comments TOTAL PROTEIN (BEAKER) (test xrut=836) 5.1 gm/dL 6.0-8.3 ALBUMIN (BEAKER) (test vxdh=2664) 2.9 g/dL 3.5-5.0 BILIRUBIN TOTAL (BEAKER) (test qmvt=609) 1.3 mg/dL 0.2-1.2 BILIRUBIN DIRECT (BEAKER) (test avcl=226) 0.7 mg/dL 0.1-0.5 ALKALINE PHOSPHATASE (BEAKER) (test xpte=103) 91 U/L 40-150 AST (SGOT) (BEAKER) (test xico=534) 30 U/L 5-34 ALT (SGPT) (BEAKER) (test vafs=054) 10 U/L 6-55 BASIC METABOLIC [id number] 05:49:00 Test Item Value Reference Range Comments SODIUM (BEAKER) (test 140 meq/L 136-145 gzax=458) POTASSIUM (BEAKER) (test 3.2 meq/L 3.5-5.1 vamn=876) CHLORIDE (BEAKER) (test 103 meq/L 98-107 shen=070) CO2 (BEAKER) (test 27 meq/L 22-29 mozr=797) BLOOD UREA NITROGEN 17 mg/dL 7-21 (BEAKER) (test mhmj=169) CREATININE (BEAKER) (test 1.30 mg/dL 0.57-1.25 zyyj=884) GLUCOSE RANDOM (BEAKER) 143 mg/dL 70-105 (test lnkx=925) CALCIUM (BEAKER) (test 7.9 mg/dL 8.4-10.2 iace=067) EGFR (BEAKER) (test 42 mL/min/1.73 sq m ESTIMATED GFR IS NOT auco=3593) ACCURATE CREATININE CLEARANCE IN PREDICTING GLOMERULAR FILTRATION RATE. ESTIMATED GFR IS NOT APPLICABLE FOR DIALYSIS PATIENTS. PROTHROMBIN [id number] 05:32:00 Test Item Value Reference Range Comments PROTIME (BEAKER) (test hydc=251) 14.7 seconds 11.9-14.2 INR (BEAKER) (test khgm=320) 1.2 <=5.9 Effective 04/01/2019: PT Reference Range ChangeNew: 11.9-14.2 Previous: 11.7- 14.7RECOMMENDED COUMADIN/WARFARIN INR THERAPY RANGESSTANDARD DOSE: 2.0-3.0 Includes: PROPHYLAXIS for venous thrombosis, systemic embolization; TREATMENT for venous thrombosis and/or pulmonary embolus.HIGH RISK: Target INR is2.5-3.5 for patients wiht mechanical heart valves.CBC W/PLT COUNT & AUTO [id number] 05:09:00 Test Item Value Reference Range Comments WHITE BLOOD CELL COUNT (BEAKER) (test mfnq=933) 4.7 K/ L 3.5-10.5 RED BLOOD CELL COUNT (BEAKER) (test lnvh=605) 2.86 M/ L 3.93-5.22 HEMOGLOBIN (BEAKER) (test oyhq=002) 7.9 GM/DL 11.2-15.7 HEMATOCRIT (BEAKER) (test smnn=325) 25.3 % 34.1-44.9 MEAN CORPUSCULAR VOLUME (BEAKER) (test zora=540) 88.5 fL 79.4-94.8 MEAN CORPUSCULAR HEMOGLOBIN (BEAKER) (test 27.6 pg 25.6-32.2 ocvv=917) MEAN CORPUSCULAR HEMOGLOBIN CONC (BEAKER) (test 31.2 GM/DL 32.2-35.5 jvyr=655) RED CELL DISTRIBUTION WIDTH (BEAKER) (test 17.4 % 11.7-14.4 rfkn=940) PLATELET COUNT (BEAKER) (test yeye=070) 141 K/CU MM 150-450 MEAN PLATELET VOLUME (BEAKER) (test czsp=049) 9.3 fL 9.4-12.3 NUCLEATED RED BLOOD CELLS (BEAKER) (test 0 /100 WBC 0-0 ncmi=536) NEUTROPHILS RELATIVE PERCENT (BEAKER) (test 50 % bogr=613) LYMPHOCYTES RELATIVE PERCENT (BEAKER) (test 28 % gfsj=189) MONOCYTES RELATIVE PERCENT (BEAKER) (test 11 % ubrx=016) EOSINOPHILS RELATIVE PERCENT (BEAKER) (test 10 % bgms=723) BASOPHILS RELATIVE PERCENT (BEAKER) (test 1 % xlkv=178) NEUTROPHILS ABSOLUTE COUNT (BEAKER) (test 2.33 K/ L 1.56-6.13 dysb=132) LYMPHOCYTES ABSOLUTE COUNT (BEAKER) (test 1.31 K/ L 1.18-3.74 ieuz=721) MONOCYTES ABSOLUTE COUNT (BEAKER) (test 0.51 K/ L 0.24-0.36 yxgh=317) EOSINOPHILS ABSOLUTE COUNT (BEAKER) (test 0.46 K/ L 0.04-0.36 onak=008) BASOPHILS ABSOLUTE COUNT (BEAKER) (test 0.06 K/ L 0.01-0.08 ehms=642) IMMATURE GRANULOCYTES-RELATIVE PERCENT (BEAKER) 0 % 0-1 (test mexe=2510) BLOOD GAS, [id number] 22:21:00 Test Item Value Reference Range Comments PH ARTERIAL (BEAKER) (test hhps=951) 7.49 7.35-7.45 PCO2 ARTERIAL (BEAKER) (test rofy=375) 43 mmHg 35-45 PO2 ARTERIAL (BEAKER) (test sugm=006) 56 mmHg 80-90 O2 SATURATION ARTERIAL (BEAKER) (test ystv=071) 92.5 % 96.0-97.0 HCO3 ARTERIAL (BEAKER) (test lzwq=836) 32 mmol/L 21-29 BASE EXCESS ARTERIAL (BEAKER) (test ucaq=187) 7.9 mmol/L -2.0-3.0 PATIENT TEMPERATURE (BEAKER) (test tkvh=0816) 35.8 C FIO2 (BEAKER) (test rnts=1261) 21.0 % POCT-GLUCOSE [id number] 21:14:00 Test Item Value Reference Range Comments POC-GLUCOSE METER (BEAKER) 259 mg/dL 70-110 TESTED AT [address] (test jhce=2789) [place] [id number] BODY FLUID CULTURE + GRAM [id number] 18:00:00 Test Item Value Reference Range Comments CULTURE (BEAKER) (test oiul=3324) No growth GRAM STAIN RESULT (BEAKER) (test No WBCs nene=1780) GRAM STAIN RESULT (BEAKER) (test No organisms seen jcks=45858) POCT-GLUCOSE [id number] 17:23:00 Test Item Value Reference Range Comments POC-GLUCOSE METER (BEAKER) 201 mg/dL 70-110 TESTED AT [address] (test obmq=2550) [facility] [address] RAD, MANDIBLE, MIN 4 [id number] 15:00:00Reason for exam:->liver transplant evalShould this be [...] Giovanni Martinezeport Verified Date/Time: 05/23/201915:00:10 Reading Location: [facility] C0[facility] Transitional Reading Room CRYPTOCOCCAL [id number] 14:59:00 Test Item Value Reference Range Comments CRYPTOCOCCAL ANTIGEN, SERUM (BEAKER) (test Negative Negative, Interference mepd=2986) [id number] 14:45:00 Test Item Value Reference Range Comments RPR SCREEN (BEAKER) (test ojsj=942) Nonreactive Nonreactive CYTOMEGALOVIRUS ANTIBODY, [id number] 13:48:00 Test Item Value Reference Range Comments CYTOMEGALOVIRUS, IGG (BEAKER) (test pzqp=6440) Positive Negative, Equivocal CMV IgG Result Interpretation: </=0.8 Al Negative 0.9-1.0 Al Equivocal &gt ;/=1.1 Al PositiveCYTOMEGALOVIRUS ANTIBODY, [id number] 13:48:00 Test Item Value Reference Range Comments CYTOMEGALOVIRUS IGM ANTIBODY (BEAKER) (test Negative Negative, Equivocal eygx=8688) CMV IgM Result Interpretation: </=0.8 Al Negative 0.9-1.0 Al Equivocal >/=1.1 Al PositiveEBV ANTIBODY, [id number] 13:48:00 Test Item Value Reference Range Comments BERTRAND BOLES VIRAL CAPSID ANTIGEN IGG (BEAKER) Positive Negative, Equivocal (test gplg=7670) Bertrand Boles Viral Capsid Antigen IgG Result Interpretation: </=0.8 Al Negative 0.9-1.0 Al Equivocal >/=1.1 Al PositiveEBV ANTIBODY, [id number] 13:48:00 Test Item Value Reference Range Comments BERTRAND BOLES VIRAL CAPSID ANTIGEN IGM (BEAKER) Negative Negative, Equivocal (test ijbf=0580) Bertrand Boles Viral Capsid Antigen IgM Result Interpretation: </=0.8 Al Negative 0.9-1.0 Al Equivocal >/=1.1 Al PositiveVARICELLA ZOSTER ANTIBODY , [id number] 13:48:00 Test Item Value Reference Range Comments VARICELLA ZOSTER IGG (AL) (BEAKER) (test slzv=4878) 0.9 VARICELLA ZOSTER RESULT INTERPRETATIONS: <=0.8 Al Nonreactive: Presumed non-immune to VZV 0.9-1.0 Al Equivocal >=1.1 Al Reactive: Presumed immune to VZVRUBELLA ANTIBODY, [id number] 13:48:00 Test Item Value Reference Range Comments RUBELLA IGG QUANTITATION (BEAKER) (test hqjd=592) 12.0 IU/mL <8.0 Rubella IgG Result Interpretation: </=7.0 IU/mL Negative - Presumed non- immune 8.0 - 9.9 IU/mL Equivocal >=10.0 IU/mL Positive - Presumed immunePOCT-GLUCOSE [id number] 11:41:00 Test Item Value Reference Range Comments POC-GLUCOSE METER (BEAKER) 162 mg/dL 70-110 TESTED AT [address] (test qroq=9008) [facility] [address] POCT-GLUCOSE [id number] 10:06:00 Test Item Value Reference Range Comments POC-GLUCOSE METER (BEAKER) 95 mg/dL 70-110 TESTED AT [address] (test aqvs=1784) [facility] [address] IRON, TIBC, % SAT. (WITHOUT FERRITIN)2019-05-23 07:32:00 Test Item Value Reference Range Comments IRON (BEAKER) (test rabw=788) 30.0 ug/dL 40.0-160.0 TOTAL IRON BINDING CAPACITY (BEAKER) (test 143 ug/dL 250-450 vxqd=649) IRON % SATURATION (2) (BEAKER) (test tggx=2452) 21 % 20-55 [id number] 06:29:00 Test Item Value Reference Range Comments PHOSPHORUS (BEAKER) (test jdmc=975) 1.9 mg/dL 2.3-4.7 [id number] 06:29:00 Test Item Value Reference Range Comments MAGNESIUM (BEAKER) (test dvvs=271) 1.5 mg/dL 1.6-2.6 HEPATIC FUNCTION [id number] 06:29:00 Test Item Value Reference Range Comments TOTAL PROTEIN (BEAKER) (test bmjm=911) 5.2 gm/dL 6.0-8.3 ALBUMIN (BEAKER) (test wqvc=8063) 3.0 g/dL 3.5-5.0 BILIRUBIN TOTAL (BEAKER) (test rpzo=241) 1.6 mg/dL 0.2-1.2 BILIRUBIN DIRECT (BEAKER) (test mnax=018) 0.8 mg/dL 0.1-0.5 ALKALINE PHOSPHATASE (BEAKER) (test oktk=898) 87 U/L 40-150 AST (SGOT) (BEAKER) (test unev=746) 24 U/L 5-34 ALT (SGPT) (BEAKER) (test oxop=652) 11 U/L 6-55 COMPREHENSIVE METABOLIC [id number] 06:29:00 Test Item Value Reference Range Comments TOTAL PROTEIN (BEAKER) 5.2 gm/dL 6.0-8.3 (test vtrq=478) ALBUMIN (BEAKER) (test 3.0 g/dL 3.5-5.0 yndi=1061) ALKALINE PHOSPHATASE 87 U/L 40-150 (BEAKER) (test amkd=674) BILIRUBIN TOTAL (BEAKER) 1.6 mg/dL 0.2-1.2 (test rdqy=357) SODIUM (BEAKER) (test 139 meq/L 136-145 tgbk=394) POTASSIUM (BEAKER) (test 3.3 meq/L 3.5-5.1 nxtt=515) CHLORIDE (BEAKER) (test 104 meq/L 98-107 wqrt=910) CO2 (BEAKER) (test 30 meq/L 22-29 iolz=855) BLOOD UREA NITROGEN 18 mg/dL 7-21 (BEAKER) (test jmhz=262) CREATININE (BEAKER) (test 1.41 mg/dL 0.57-1.25 emxv=176) GLUCOSE RANDOM (BEAKER) 102 mg/dL 70-105 (test fudf=338) CALCIUM (BEAKER) (test 8.1 mg/dL 8.4-10.2 iixi=387) AST (SGOT) (BEAKER) (test 24 U/L 5-34 whaq=346) ALT (SGPT) (BEAKER) (test 11 U/L 6-55 chij=450) EGFR (BEAKER) (test 38 mL/min/1.73 sq m ESTIMATED GFR IS NOT ynog=1700) ACCURATE CREATININE CLEARANCE IN PREDICTING GLOMERULAR FILTRATION RATE. ESTIMATED GFR IS NOT APPLICABLE FOR DIALYSIS PATIENTS. CBC W/PLT COUNT & AUTO [id number] 05:46:00 Test Item Value Reference Range Comments WHITE BLOOD CELL COUNT (BEAKER) (test ldqi=277) 4.9 K/ L 3.5-10.5 RED BLOOD CELL COUNT (BEAKER) (test zleh=215) 2.83 M/ L 3.93-5.22 HEMOGLOBIN (BEAKER) (test sezq=914) 8.0 GM/DL 11.2-15.7 HEMATOCRIT (BEAKER) (test ghsf=270) 24.4 % 34.1-44.9 MEAN CORPUSCULAR VOLUME (BEAKER) (test elph=565) 86.2 fL 79.4-94.8 MEAN CORPUSCULAR HEMOGLOBIN (BEAKER) (test 28.3 pg 25.6-32.2 zmfa=367) MEAN CORPUSCULAR HEMOGLOBIN CONC (BEAKER) (test 32.8 GM/DL 32.2-35.5 wnnx=144) RED CELL DISTRIBUTION WIDTH (BEAKER) (test 17.6 % 11.7-14.4 gitg=620) PLATELET COUNT (BEAKER) (test ogbt=569) 147 K/CU MM 150-450 MEAN PLATELET VOLUME (BEAKER) (test lwqt=311) 9.1 fL 9.4-12.3 NUCLEATED RED BLOOD CELLS (BEAKER) (test 0 /100 WBC 0-0 njmx=894) NEUTROPHILS RELATIVE PERCENT (BEAKER) (test 51 % rfbp=742) LYMPHOCYTES RELATIVE PERCENT (BEAKER) (test 27 % hbbd=523) MONOCYTES RELATIVE PERCENT (BEAKER) (test 11 % zidt=178) EOSINOPHILS RELATIVE PERCENT (BEAKER) (test 10 % rcle=691) BASOPHILS RELATIVE PERCENT (BEAKER) (test 1 % acmz=915) NEUTROPHILS ABSOLUTE COUNT (BEAKER) (test 2.51 K/ L 1.56-6.13 mcrz=586) LYMPHOCYTES ABSOLUTE COUNT (BEAKER) (test 1.30 K/ L 1.18-3.74 ndhg=283) MONOCYTES ABSOLUTE COUNT (BEAKER) (test 0.54 K/ L 0.24-0.36 ngsz=408) EOSINOPHILS ABSOLUTE COUNT (BEAKER) (test 0.48 K/ L 0.04-0.36 wuwx=658) BASOPHILS ABSOLUTE COUNT (BEAKER) (test 0.06 K/ L 0.01-0.08 mgyu=423) IMMATURE GRANULOCYTES-RELATIVE PERCENT (BEAKER) 0 % 0-1 (test onxw=5293) PROTHROMBIN [id number] 05:46:00 Test Item Value Reference Range Comments PROTIME (BEAKER) (test basc=786) 14.9 seconds 11.9-14.2 INR (BEAKER) (test esoc=616) 1.2 <=5.9 Effective 04/01/2019: PT Reference Range ChangeNew: 11.9-14.2 Previous: 11.7- 14.7RECOMMENDED COUMADIN/WARFARIN INR THERAPY RANGESSTANDARD DOSE: 2.0-3.0 Includes: PROPHYLAXIS for venous thrombosis, systemic embolization; TREATMENT for venous thrombosis and/or pulmonary embolus.HIGH RISK: Target INR is2.5-3.5 for patients wiht mechanical heart valves.CALCIUM, [id number] 05:44:00 Test Item Value Reference Range Comments CALCIUM IONIZED (BEAKER) (test jvrp=789) 0.99 mmol/L 1.12-1.27 PH, BLOOD (NISHANTAKER) (test uxhq=8336) 7.48 HEMOGLOBIN [id number] 22:07:00 Test Item Value Reference Range Comments HEMOGLOBIN A1C (BEAKER) (test minf=303) 8.1 % 4.3-6.1 POCT-GLUCOSE [id number] 21:38:00 Test Item Value Reference Range Comments POC-GLUCOSE METER (BEAKER) 213 mg/dL 70-110 TESTED AT [address] (test uhmd=5553) [place] [address] POCT-GLUCOSE [id number] 18:07:00 Test Item Value Reference Range Comments POC-GLUCOSE METER (BEAKER) 212 mg/dL 70-110 TESTED AT [address] (test qjti=5928) [facility] [address] ALPHA FETOPROTEIN (AFP), TUMOR [id number] 17:50:00 Test Item Value Reference Range Comments ALPHA-FETOPROTEIN (BEAKER) (test pjhb=7341) < ng/mL <10.0 HEPATITIS C [id number] 17:49:00 Test Item Value Reference Range Comments HEPATITIS C ANTIBODY (BEAKER) (test zlcz=877) Nonreactive Nonreactive VITAMIN D, 65-[id number] 15:10:00 Test Item Value Reference Range Comments VITAMIN D 25-OH (BEAKER) (test fjfw=2619) < ng/mL 6.6-49.9 Effective 08/14/2017: Reference Range ChangeNew: 6.6-49.9 ng/mL Previous: 13.0 -47.8 ng/mLRecommended Vitamin D Target Range: 30.0-40.0 ng/mLHEPATITIS B SURFACE [id number] 15:10:00 Test Item Value Reference Range Comments HEPATITIS B SURFACE ANTIBODY (BEAKER) (test < mIU/mL <8.0 uzfg=512) CARCINOEMBRYONIC ANTIGEN (CEA)2019-05-22 15:10:00 Test Item Value Reference Range Comments CARCINOEMBRYONIC ANTIGEN (BEAKER) (test bqgx=416) < ng/mL 0.0-5.0 HEPATITIS B CORE ANTIBODY, [id number] 15:08:00 Test Item Value Reference Range Comments HEPATITIS B CORE IGM ANTIBODY (BEAKER) (test Nonreactive Nonreactive nuuu=463) HEPATITIS A ANTIBODY, [id number] 15:08:00 Test Item Value Reference Range Comments HEPATITIS A IGM ANTIBODY (BEAKER) (test Nonreactive Nonreactive kzqm=593) HEPATITIS A ANTIBODY, [id number] 15:08:00 Test Item Value Reference Range Comments HEPATITIS A IGG ANTIBODY (BEAKER) (test Nonreactive Nonreactive jees=4130) HEPATITIS B SURFACE [id number] 15:05:00 Test Item Value Reference Range Comments HEPATITIS B SURFACE ANTIGEN (2) (BEAKER) (test Nonreactive Nonreactive vbym=2798) HEPATITIS B CORE ANTIBODY, [id number] 15:05:00 Test Item Value Reference Range Comments HEPATITIS B CORE TOTAL ANTIBODY (BEAKER) (test Nonreactive Nonreactive egmy=340) HIV-1 ANTIGEN WITH HIV-1/2 [id number] 15:05:00 Test Item Value Reference Range Comments HIV-1 ANTIGEN WITH HIV 1\\T\\2 ANTIBODY (2) Nonreactive Nonreactive (BEAKER) (test fdld=7473) URIC [id number] 14:46:00 Test Item Value Reference Range Comments URIC ACID (BEAKER) (test furh=261) 5.7 mg/dL 2.6-7.2 LIPID [id number] 14:46:00 Test Item Value Reference Range Comments TRIGLYCERIDES (BEAKER) (test jfvn=149) 71 mg/dL CHOLESTEROL (BEAKER) (test khtd=488) 72 mg/dL HDL CHOLESTEROL (BEAKER) (test jtmo=317) 20 mg/dL LDL CHOLESTEROL CALCULATED (BEAKER) (test nlep=582) 38 mg/dL Triglyceride Reference Range: Low Risk <150 Borderline 150- 199 High Risk 200-499 Very High Risk >=500Cholesterol Reference Range: Low Risk <200 Borderline 200-239 High Risk > 240HDL Cholesterol Reference Range: Low Risk >=60 High Risk <40LDL Cholesterol Reference Range: Optimal <100 Near Optimal 100-129 Borderline 130-159 High 160-189 Very High >=190BILIRUBIN, [id number] 14:46:00 Test Item Value Reference Range Comments BILIRUBIN DIRECT (BEAKER) (test aeyc=432) 0.8 mg/dL 0.1-0.5 GAMMA GLUTAMYL TRANSFERASE (GGT)2019-05-22 14:46:00 Test Item Value Reference Range Comments GAMMA GLUTAMYL TRANSFERASE (BEAKER) (test viex=465) 10 U/L 9-64 [id number] 14:45:00 Test Item Value Reference Range Comments ETHANOL (BEAKER) (test dwmu=124) < mg/dL <=10 [id number] 14:44:00 Test Item Value Reference Range Comments TRANSFERRIN (BEAKER) (test gwxl=639) 109 mg/dL 174-382 IRON, TIBC, % SAT. (WITHOUT FERRITIN)2019-05-22 14:44:00 Test Item Value Reference Range Comments IRON (BEAKER) (test uuvn=456) 40.0 ug/dL 40.0-160.0 TOTAL IRON BINDING CAPACITY (BEAKER) (test 136 ug/dL 250-450 lckg=993) IRON % SATURATION (2) (BEAKER) (test nger=3643) 29 % 20-55 [id number] 14:34:00 Test Item Value Reference Range Comments PARTIAL THROMBOPLASTIN TIME (BEAKER) (test 35.7 seconds 22.5-36.0 tfnx=175) [id number] 14:33:00 Test Item Value Reference Range Comments FIBRINOGEN LEVEL (BEAKER) (test xbnv=070) 282 mg/dl 225-434 U/S, ABDOMINAL, WITH [id number] 14:09:00Reason for exam:->TIPS evaluationFINAL REPORT Ultrasound of [...] [place] Verified Date/Time: 05/22/2019 14:09:52 Reading Location: [address] Radiology Reading Room Electronically signed by: MISSY MOMIN M.D. on 2018 02:09 PMPOCT-GLUCOSE [id number] 12:31:00 Test Item Value Reference Range Comments POC-GLUCOSE METER (BEAKER) 252 mg/dL 70-[address] [facility] [address] (test zelb=5313) [facility] [address] COMPREHENSIVE METABOLIC [id number] 08:22:00 Test Item Value Reference Range Comments TOTAL PROTEIN (BEAKER) 4.8 gm/dL 6.0-8.3 (test zjig=389) ALBUMIN (BEAKER) (test 3.0 g/dL 3.5-5.0 trko=3717) ALKALINE PHOSPHATASE 77 U/L 40-150 (BEAKER) (test ceej=943) BILIRUBIN TOTAL (BEAKER) 1.6 mg/dL 0.2-1.2 (test aalf=652) SODIUM (BEAKER) (test 141 meq/L 136-145 cmnm=538) POTASSIUM (BEAKER) (test 3.1 meq/L 3.5-5.1 tbsr=737) CHLORIDE (BEAKER) (test 105 meq/L 98-107 otls=832) CO2 (BEAKER) (test 31 meq/L 22-29 ikfj=058) BLOOD UREA NITROGEN 18 mg/dL 7-21 (BEAKER) (test zsxp=809) CREATININE (BEAKER) (test 1.50 mg/dL 0.57-1.25 ltsj=299) GLUCOSE RANDOM (BEAKER) 145 mg/dL 70-105 (test vzsr=886) CALCIUM (BEAKER) (test 7.9 mg/dL 8.4-10.2 fnhr=347) AST (SGOT) (BEAKER) (test 23 U/L 5-34 wcan=538) ALT (SGPT) (BEAKER) (test 7 U/L 6-55 jeum=261) EGFR (BEAKER) (test 35 mL/min/1.73 sq m ESTIMATED GFR IS NOT cosm=8778) ACCURATE CREATININE CLEARANCE IN PREDICTING GLOMERULAR FILTRATION RATE. ESTIMATED GFR IS NOT APPLICABLE FOR DIALYSIS PATIENTS. [id number] 08:19:00 Test Item Value Reference Range Comments PHOSPHORUS (BEAKER) (test qyys=036) 2.2 mg/dL 2.3-4.7 [id number] 08:19:00 Test Item Value Reference Range Comments MAGNESIUM (BEAKER) (test kagt=682) 1.5 mg/dL 1.6-2.6 HEPATIC FUNCTION [id number] 08:19:00 Test Item Value Reference Range Comments TOTAL PROTEIN (BEAKER) (test ieeo=055) 4.8 gm/dL 6.0-8.3 ALBUMIN (BEAKER) (test bsqd=5828) 3.0 g/dL 3.5-5.0 BILIRUBIN TOTAL (BEAKER) (test zxpq=352) 1.6 mg/dL 0.2-1.2 BILIRUBIN DIRECT (BEAKER) (test zozq=153) 0.7 mg/dL 0.1-0.5 ALKALINE PHOSPHATASE (BEAKER) (test mxgy=238) 77 U/L 40-150 AST (SGOT) (BEAKER) (test bqcx=098) 23 U/L 5-34 ALT (SGPT) (BEAKER) (test ffng=812) 7 U/L 6-55 POCT-GLUCOSE [id number] 08:08:00 Test Item Value Reference Range Comments POC-GLUCOSE METER (BEAKER) 154 mg/dL 70-[address] [facility] [address] [facility] (test xjls=3178) [facility] [address] B-TYPE NATRIURETIC FACTOR (BNP)2019-05-22 06:18:00 Test Item Value Reference Range Comments B-TYPE NATRIURETIC PEPTIDE (BEAKER) (test 411 pg/mL 0-100 pgbu=444) PROTHROMBIN TIME/[id number] 06:00:00 Test Item Value Reference Range Comments PROTIME (BEAKER) (test rqac=677) 14.9 seconds 11.9-14.2 INR (BEAKER) (test ddbz=160) 1.2 <=5.9 Effective 04/01/2019: PT Reference Range ChangeNew: 11.9-14.2 Previous: 11.7- 14.7RECOMMENDED COUMADIN/WARFARIN INR THERAPY RANGESSTANDARD DOSE: 2.0-3.0 Includes: PROPHYLAXIS for venous thrombosis, systemic embolization; TREATMENT for venous thrombosis and/or pulmonary embolus.HIGH RISK: Target INR is2.5-3.5 for patients wiht mechanical heart valves.CALCIUM, [id number] 05:48:00 Test Item Value Reference Range Comments CALCIUM IONIZED (BEAKER) (test knjs=625) 1.04 mmol/L 1.12-1.27 PH, BLOOD (BEAKER) (test ykou=9072) 7.40 CBC W/PLT COUNT & AUTO [id number] 05:45:00 Test Item Value Reference Range Comments WHITE BLOOD CELL COUNT (BEAKER) (test jxiq=099) 4.1 K/ L 3.5-10.5 RED BLOOD CELL COUNT (BEAKER) (test ycaq=805) 2.71 M/ L 3.93-5.22 HEMOGLOBIN (BEAKER) (test zxyh=700) 7.4 GM/DL 11.2-15.7 HEMATOCRIT (BEAKER) (test coja=157) 23.6 % 34.1-44.9 MEAN CORPUSCULAR VOLUME (BEAKER) (test hlub=133) 87.1 fL 79.4-94.8 MEAN CORPUSCULAR HEMOGLOBIN (BEAKER) (test 27.3 pg 25.6-32.2 dikf=603) MEAN CORPUSCULAR HEMOGLOBIN CONC (BEAKER) (test 31.4 GM/DL 32.2-35.5 cekx=678) RED CELL DISTRIBUTION WIDTH (BEAKER) (test 17.2 % 11.7-14.4 lydo=894) PLATELET COUNT (BEAKER) (test pmgb=765) 126 K/CU MM 150-450 MEAN PLATELET VOLUME (BEAKER) (test eosn=373) 9.2 fL 9.4-12.3 NUCLEATED RED BLOOD CELLS (BEAKER) (test 0 /100 WBC 0-0 cezv=161) NEUTROPHILS RELATIVE PERCENT (BEAKER) (test 49 % ibvl=365) LYMPHOCYTES RELATIVE PERCENT (BEAKER) (test 29 % ajvf=337) MONOCYTES RELATIVE PERCENT (BEAKER) (test 12 % toln=464) EOSINOPHILS RELATIVE PERCENT (BEAKER) (test 8 % yiuv=161) BASOPHILS RELATIVE PERCENT (BEAKER) (test 1 % ukaa=130) NEUTROPHILS ABSOLUTE COUNT (BEAKER) (test 2.03 K/ L 1.56-6.13 xnsw=853) LYMPHOCYTES ABSOLUTE COUNT (BEAKER) (test 1.21 K/ L 1.18-3.74 uvsj=062) MONOCYTES ABSOLUTE COUNT (BEAKER) (test 0.51 K/ L 0.24-0.36 ngcm=738) EOSINOPHILS ABSOLUTE COUNT (BEAKER) (test 0.34 K/ L 0.04-0.36 wuwv=524) BASOPHILS ABSOLUTE COUNT (BEAKER) (test 0.04 K/ L 0.01-0.08 lzbs=590) IMMATURE GRANULOCYTES-RELATIVE PERCENT (BEAKER) 0 % 0-1 (test dczg=3238) POCT-GLUCOSE [id number] 21:52:00 Test Item Value Reference Range Comments POC-GLUCOSE METER (BEAKER) 241 mg/dL 70-110 TESTED AT [address] (test damr=4773) [place] [address] POCT-GLUCOSE [id number] 17:36:00 Test Item Value Reference Range Comments POC-GLUCOSE METER (BEAKER) 291 mg/dL 70-110 TESTED AT [address] (test ealx=0524) [place] [id number] BODY FLUID CELL COUNT WITH [id number] 13:52:00 Test Item Value Reference Range Comments APPEARANCE FLUID (BEAKER) (test sowp=311) Clear Clear COLOR FLUID (BEAKER) (test ugcm=596) Yellow Colorless, Straw RBC FLUID (BEAKER) (test vqjg=217) 1815 /cu mm <=1 ADJUSTED WBC FLUID (BEAKER) (test cohx=9869) 79 /cu mm <=5 LINING CELLS (BEAKER) (test okga=4783) 14 /cu mm <=1 NEUTROPHILS FLUID (BEAKER) (test xtoa=9574) 0 % LYMPHS FLUID (BEAKER) (test fvca=929) 25 % MONO/MACROPHAGE FLUID (BEAKER) (test zqwu=775) 74 % EOSINOPHILS FLUID (BEAKER) (test nwid=633) 1 % BASO FLUID (BEAKER) (test bnji=810) 0 % CONTAINER BODY FLUID (BEAKER) (test jmmt=4251) EDTA Tube HEMOGLOBIN [id number] 13:47:00 Test Item Value Reference Range Comments HEMOGLOBIN A1C (BEAKER) (test hktf=469) 8.4 % 4.3-6.1 POCT-GLUCOSE [id number] 11:56:00 Test Item Value Reference Range Comments POC-GLUCOSE METER (BEAKER) 223 mg/dL 70-110 TESTED AT [address] (test qbfj=3281) [place] [id number] POCT-GLUCOSE [id number] 08:31:00 Test Item Value Reference Range Comments POC-GLUCOSE METER (BEAKER) 257 mg/dL 70-110 TESTED AT [address] (test bnaj=5908) [place] [id number] T4, [id number] 08:29:00 Test Item Value Reference Range Comments FREE T4 (BEAKER) (test rctx=818) 0.41 ng/dL 0.70-1.48 BASIC METABOLIC [id number] 08:28:00 Test Item Value Reference Range Comments SODIUM (BEAKER) (test 136 meq/L 136-145 znsz=409) POTASSIUM (BEAKER) (test 3.4 meq/L 3.5-5.1 uoki=458) CHLORIDE (BEAKER) (test 104 meq/L 98-107 teij=601) CO2 (BEAKER) (test 27 meq/L 22-29 duli=225) BLOOD UREA NITROGEN 18 mg/dL 7-21 (BEAKER) (test wpjf=154) CREATININE (BEAKER) (test 1.57 mg/dL 0.57-1.25 gjts=532) GLUCOSE RANDOM (BEAKER) 235 mg/dL 70-105 (test qihg=431) CALCIUM (BEAKER) (test 7.8 mg/dL 8.4-10.2 cbcr=790) EGFR (BEAKER) (test 33 mL/min/1.73 sq m ESTIMATED GFR IS NOT tnac=2836) ACCURATE CREATININE CLEARANCE IN PREDICTING GLOMERULAR FILTRATION RATE. ESTIMATED GFR IS NOT APPLICABLE FOR DIALYSIS PATIENTS. Specimen slightly [id number] 08:14:00 Test Item Value Reference Range Comments PHOSPHORUS (BEAKER) (test hggw=319) 2.4 mg/dL 2.3-4.7 [id number] 08:14:00 Test Item Value Reference Range Comments MAGNESIUM (BEAKER) (test hfyw=132) 1.5 mg/dL 1.6-2.6 HEPATIC FUNCTION [id number] 08:14:00 Test Item Value Reference Range Comments TOTAL PROTEIN (BEAKER) (test iqsg=358) 5.1 gm/dL 6.0-8.3 ALBUMIN (BEAKER) (test evpo=2782) 2.5 g/dL 3.5-5.0 BILIRUBIN TOTAL (BEAKER) (test ihub=577) 1.3 mg/dL 0.2-1.2 BILIRUBIN DIRECT (BEAKER) (test evnf=359) 0.7 mg/dL 0.1-0.5 ALKALINE PHOSPHATASE (BEAKER) (test luvr=920) 107 U/L 40-150 AST (SGOT) (BEAKER) (test rowj=674) 27 U/L 5-34 ALT (SGPT) (BEAKER) (test jnrd=755) 11 U/L 6-55 Specimen slightly ictericTSH/FREE T4 IF [id number] 07:00:00 Test Item Value Reference Range Comments THYROID STIMULATING HORMONE (BEAKER) (test 59.61 uIU/mL 0.35-4.94 nlzp=908) PROTHROMBIN TIME/[id number] 05:56:00 Test Item Value Reference Range Comments PROTIME (BEAKER) (test fhdt=563) 14.3 seconds 11.9-14.2 INR (BEAKER) (test rzqu=314) 1.2 <=5.9 Effective 04/01/2019: PT Reference Range ChangeNew: 11.9-14.2 Previous: 11.7- 14.7RECOMMENDED COUMADIN/WARFARIN INR THERAPY RANGESSTANDARD DOSE: 2.0-3.0 Includes: PROPHYLAXIS for venous thrombosis, systemic embolization; TREATMENT for venous thrombosis and/or pulmonary embolus.HIGH RISK: Target INR is2.5-3.5 for patients wiht mechanical heart valves.CALCIUM, [id number] 05:43:00 Test Item Value Reference Range Comments CALCIUM IONIZED (BEAKER) (test exlw=004) 0.97 mmol/L 1.12-1.27 PH, BLOOD (BEAKER) (test rkni=0675) 7.45 CBC W/PLT COUNT & AUTO [id number] 05:21:00 Test Item Value Reference Range Comments WHITE BLOOD CELL COUNT (BEAKER) (test pktx=840) 5.5 K/ L 3.5-10.5 RED BLOOD CELL COUNT (BEAKER) (test eoik=038) 3.06 M/ L 3.93-5.22 HEMOGLOBIN (BEAKER) (test noit=726) 8.3 GM/DL 11.2-15.7 HEMATOCRIT (BEAKER) (test bqiu=897) 26.3 % 34.1-44.9 MEAN CORPUSCULAR VOLUME (BEAKER) (test tcri=245) 85.9 fL 79.4-94.8 MEAN CORPUSCULAR HEMOGLOBIN (BEAKER) (test 27.1 pg 25.6-32.2 pzpt=413) MEAN CORPUSCULAR HEMOGLOBIN CONC (BEAKER) (test 31.6 GM/DL 32.2-35.5 onig=267) RED CELL DISTRIBUTION WIDTH (BEAKER) (test 17.2 % 11.7-14.4 tqzb=986) PLATELET COUNT (BEAKER) (test rvwx=253) 154 K/CU MM 150-450 MEAN PLATELET VOLUME (BEAKER) (test vklb=136) 8.9 fL 9.4-12.3 NUCLEATED RED BLOOD CELLS (BEAKER) (test 0 /100 WBC 0-0 icvo=892) NEUTROPHILS RELATIVE PERCENT (BEAKER) (test 61 % fvia=491) LYMPHOCYTES RELATIVE PERCENT (BEAKER) (test 21 % dfud=510) MONOCYTES RELATIVE PERCENT (BEAKER) (test 10 % imtb=173) EOSINOPHILS RELATIVE PERCENT (BEAKER) (test 8 % gwzs=660) BASOPHILS RELATIVE PERCENT (BEAKER) (test 1 % jmtv=287) NEUTROPHILS ABSOLUTE COUNT (BEAKER) (test 3.33 K/ L 1.56-6.13 ztkq=140) LYMPHOCYTES ABSOLUTE COUNT (BEAKER) (test 1.13 K/ L 1.18-3.74 nheo=325) MONOCYTES ABSOLUTE COUNT (BEAKER) (test 0.55 K/ L 0.24-0.36 wuap=023) EOSINOPHILS ABSOLUTE COUNT (BEAKER) (test 0.42 K/ L 0.04-0.36 pqzl=331) BASOPHILS ABSOLUTE COUNT (BEAKER) (test 0.06 K/ L 0.01-0.08 ptxn=922) IMMATURE GRANULOCYTES-RELATIVE PERCENT (BEAKER) 0 % 0-1 (test wwmw=5844) POCT-GLUCOSE [id number] 21:18:00 Test Item Value Reference Range Comments POC-GLUCOSE METER (BEAKER) 258 mg/dL 70-110 TESTED AT [address] (test jlgu=0714) [facility] [address] POCT-GLUCOSE [id number] 17:42:00 Test Item Value Reference Range Comments POC-GLUCOSE METER (BEAKER) 232 mg/dL 70-110 TESTED AT [address] (test lsaq=5229) [facility] [address] POCT-GLUCOSE [id number] 12:51:00 Test Item Value Reference Range Comments POC-GLUCOSE METER (BEAKER) 206 mg/dL 70-[address] [facility] [address] [facility] (test cdew=3654) [facility] [address] POCT-GLUCOSE [id number] 07:53:00 Test Item Value Reference Range Comments POC-GLUCOSE METER (BEAKER) 219 mg/dL 70-[address] [facility] [address] [facility] (test mmxh=1630) [facility] [address] COMPREHENSIVE METABOLIC [id number] 06:52:00 Test Item Value Reference Range Comments TOTAL PROTEIN (BEAKER) 4.9 gm/dL 6.0-8.3 (test upbc=130) ALBUMIN (BEAKER) (test 2.3 g/dL 3.5-5.0 wdyc=7081) ALKALINE PHOSPHATASE 119 U/L 40-150 (BEAKER) (test oeva=454) BILIRUBIN TOTAL (BEAKER) 1.1 mg/dL 0.2-1.2 (test xdgk=264) SODIUM (BEAKER) (test 135 meq/L 136-145 csho=022) POTASSIUM (BEAKER) (test 4.0 meq/L 3.5-5.1 nnkh=295) CHLORIDE (BEAKER) (test 105 meq/L 98-107 ihfh=732) CO2 (BEAKER) (test 26 meq/L 22-29 nxiz=760) BLOOD UREA NITROGEN 18 mg/dL 7-21 (BEAKER) (test cuye=847) CREATININE (BEAKER) (test 1.38 mg/dL 0.57-1.25 iwwc=983) GLUCOSE RANDOM (BEAKER) 234 mg/dL 70-105 (test yhvr=976) CALCIUM (BEAKER) (test 7.8 mg/dL 8.4-10.2 mnlg=222) AST (SGOT) (BEAKER) (test 29 U/L 5-34 emnu=716) ALT (SGPT) (BEAKER) (test 13 U/L 6-55 sbji=014) EGFR (BEAKER) (test 39 mL/min/1.73 sq m ESTIMATED GFR IS NOT gpuy=7516) ACCURATE CREATININE CLEARANCE IN PREDICTING GLOMERULAR FILTRATION RATE. ESTIMATED GFR IS NOT APPLICABLE FOR DIALYSIS PATIENTS. [id number] 06:47:00 Test Item Value Reference Range Comments PHOSPHORUS (BEAKER) (test xmdu=518) 2.0 mg/dL 2.3-4.7 [id number] 06:47:00 Test Item Value Reference Range Comments MAGNESIUM (BEAKER) (test adru=753) 1.7 mg/dL 1.6-2.6 HEPATIC FUNCTION [id number] 06:47:00 Test Item Value Reference Range Comments TOTAL PROTEIN (BEAKER) (test cmzt=691) 4.9 gm/dL 6.0-8.3 ALBUMIN (BEAKER) (test tiqm=6618) 2.3 g/dL 3.5-5.0 BILIRUBIN TOTAL (BEAKER) (test cnsb=306) 1.1 mg/dL 0.2-1.2 BILIRUBIN DIRECT (BEAKER) (test rggo=664) 0.6 mg/dL 0.1-0.5 ALKALINE PHOSPHATASE (BEAKER) (test vumk=309) 119 U/L 40-150 AST (SGOT) (BEAKER) (test cqfi=105) 29 U/L 5-34 ALT (SGPT) (BEAKER) (test hkxg=232) 13 U/L 6-55 CBC W/PLT COUNT & AUTO [id number] 06:32:00 Test Item Value Reference Range Comments WHITE BLOOD CELL COUNT (BEAKER) (test ydoy=974) 5.3 K/ L 3.5-10.5 RED BLOOD CELL COUNT (BEAKER) (test vtdj=775) 3.05 M/ L 3.93-5.22 HEMOGLOBIN (BEAKER) (test apwh=489) 8.3 GM/DL 11.2-15.7 HEMATOCRIT (BEAKER) (test ztff=407) 26.7 % 34.1-44.9 MEAN CORPUSCULAR VOLUME (BEAKER) (test vihz=139) 87.5 fL 79.4-94.8 MEAN CORPUSCULAR HEMOGLOBIN (BEAKER) (test 27.2 pg 25.6-32.2 dfws=002) MEAN CORPUSCULAR HEMOGLOBIN CONC (BEAKER) (test 31.1 GM/DL 32.2-35.5 cqky=363) RED CELL DISTRIBUTION WIDTH (BEAKER) (test 17.4 % 11.7-14.4 gejf=369) PLATELET COUNT (BEAKER) (test dcga=801) 161 K/CU MM 150-450 MEAN PLATELET VOLUME (BEAKER) (test iaed=270) 8.8 fL 9.4-12.3 NUCLEATED RED BLOOD CELLS (BEAKER) (test 0 /100 WBC 0-0 rdhd=181) NEUTROPHILS RELATIVE PERCENT (BEAKER) (test 52 % ubvm=754) LYMPHOCYTES RELATIVE PERCENT (BEAKER) (test 27 % dcix=283) MONOCYTES RELATIVE PERCENT (BEAKER) (test 9 % qoss=660) EOSINOPHILS RELATIVE PERCENT (BEAKER) (test 10 % uaee=944) BASOPHILS RELATIVE PERCENT (BEAKER) (test 2 % xaur=321) NEUTROPHILS ABSOLUTE COUNT (BEAKER) (test 2.75 K/ L 1.56-6.13 jdek=539) LYMPHOCYTES ABSOLUTE COUNT (BEAKER) (test 1.42 K/ L 1.18-3.74 pork=108) MONOCYTES ABSOLUTE COUNT (BEAKER) (test 0.48 K/ L 0.24-0.36 ljhq=202) EOSINOPHILS ABSOLUTE COUNT (BEAKER) (test 0.54 K/ L 0.04-0.36 vzva=168) BASOPHILS ABSOLUTE COUNT (BEAKER) (test 0.08 K/ L 0.01-0.08 pszn=246) IMMATURE GRANULOCYTES-RELATIVE PERCENT (BEAKER) 0 % 0-1 (test gman=1523) B-TYPE NATRIURETIC FACTOR (BNP)2019-05-20 06:27:00 Test Item Value Reference Range Comments B-TYPE NATRIURETIC PEPTIDE (BEAKER) (test 274 pg/mL 0-100 rbon=203) VANCOMYCIN LEVEL, [id number] 06:16:00 Test Item Value Reference Range Comments VANCOMYCIN TROUGH (BEAKER) (test xivq=765) 5.8 ug/mL 10.0-20.0 [id number] 06:11:00 Test Item Value Reference Range Comments D-DIMER QUANTITATIVE (BEAKER) (test chxz=721) 3.95 MG/L FEU <0.50 Intended Use: The [...] exclusion of thrombosis is within 95-100% range.CALCIUM, [id number] 06:04:00 Test Item Value Reference Range Comments CALCIUM IONIZED (NISHANTAKER) (test lrmu=694) 1.06 mmol/L 1.12-1.27 PH, BLOOD (BEAKER) (test fkio=8941) 7.43 PROTHROMBIN [id number] 06:02:00 Test Item Value Reference Range Comments PROTIME (BEAKER) (test gkcv=991) 13.8 seconds 11.9-14.2 INR (BEAKER) (test bnfj=247) 1.1 <=5.9 Effective 04/01/2019: PT Reference Range ChangeNew: 11.9-14.2 Previous: 11.7- 14.7RECOMMENDED COUMADIN/WARFARIN INR THERAPY RANGESSTANDARD DOSE: 2.0-3.0 Includes: PROPHYLAXIS for venous thrombosis, systemic embolization; TREATMENT for venous thrombosis and/or pulmonary embolus.HIGH RISK: Target INR is2.5-3.5 for patients wiht mechanical heart valves.TROPONIN [id number] 02:44:00 Test Item Value Reference Range Comments TROPONIN I (NISHANTAKER) (test xzng=064) 0.01 ng/mL 0.00-0.03 Troponin I (TnI) levels [...] acute neurological disease, and persistent tachyarrhythmia.PROTEIN, RANDOM [id number] 01:50:00 Test Item Value Reference Range Comments PROTEIN, URINE (BEAKER) (test edji=6061) 20 mg/dL 0-14 CREATININE, RANDOM [id number] 01:49:00 Test Item Value Reference Range Comments CREATININE URINE (DAKOTAH) (test bcvq=447) 184.6 mg/dL Reference Range: No NormalsRAD, CHEST, 1 VIEW, NON [id number] 01:49: 00Reason for exam:->anasarcaShould this be performed [...] Verified Date/Time: 05/20/2019 01:49 :05 Reading Location: [address] Reading Room POCT-GLUCOSE [id number] 00:36:00 Test Item Value Reference Range Comments POC-GLUCOSE METER (BEAKER) 326 mg/dL 70-[address] [facility] [address] [facility] (test mkuj=5102) [facility] [address] URINALYSIS W/ [id number] 00:02:00 Test Item Value Reference Range Comments COLOR (BEAKER) (test dilp=736) Yellow CLARITY (BEAKER) (test xvlz=453) Clear SPECIFIC GRAVITY UA (BEAKER) (test qoqd=136) 1.020 1.001-1.035 PH UA (BEAKER) (test vqpe=658) 5.5 5.0-8.0 PROTEIN UA (BEAKER) (test bzxg=200) 20 mg/dL Negative GLUCOSE UA (BEAKER) (test fmje=681) 300 mg/dL Negative KETONES UA (BEAKER) (test esia=251) Negative Negative BILIRUBIN UA (BEAKER) (test kogx=859) Negative Negative BLOOD UA (BEAKER) (test tdog=633) Negative Negative NITRITE UA (BEAKER) (test szra=789) Negative Negative LEUKOCYTE ESTERASE UA (BEAKER) (test hdjw=101) Small Negative UROBILINOGEN UA (BEAKER) (test vekh=079) 2.0 mg/dL 0.2-1.0 RBC UA (BEAKER) (test okdf=091) 2 /HPF WBC UA (BEAKER) (test ajno=491) 2 /HPF MUCUS (BEAKER) (test avpi=0858) Rare SQUAMOUS EPITHELIAL (BEAKER) (test ydrd=296) 6 /HPF HYALINE CASTS (BEAKER) (test jymf=270) 5 /LPF SOURCE(BEAKER) (test vviw=3934) Urine, Voided T4, [id number] 22:29:00 Test Item Value Reference Range Comments FREE T4 (BEAKER) (test yodk=977) 0.44 ng/dL 0.70-1.48 HEMOGLOBIN [id number] 22:15:00 Test Item Value Reference Range Comments HEMOGLOBIN A1C (BEAKER) (test pdjx=530) 8.6 % 4.3-6.1 TSH/FREE T4 IF [id number] 21:43:00 Test Item Value Reference Range Comments THYROID STIMULATING HORMONE (BEAKER) (test 72.01 uIU/mL 0.35-4.94 oijq=401) B-TYPE NATRIURETIC FACTOR (BNP)2019-05-19 21:29:00 Test Item Value Reference Range Comments B-TYPE NATRIURETIC PEPTIDE (BEAKER) (test 222 pg/mL 0-100 pwuh=679) PROTHROMBIN TIME/[id number] 21:26:00 Test Item Value Reference Range Comments PROTIME (BEAKER) (test rczd=527) 13.6 seconds 11.9-14.2 INR (BEAKER) (test kfax=864) 1.1 <=5.9 Effective 04/01/2019: PT Reference Range ChangeNew: 11.9-14.2 Previous: 11.7- 14.7RECOMMENDED COUMADIN/WARFARIN INR THERAPY RANGESSTANDARD DOSE: 2.0-3.0 Includes: PROPHYLAXIS for venous thrombosis, systemic embolization; TREATMENT for venous thrombosis and/or pulmonary embolus.HIGH RISK: Target INR is2.5-3.5 for patients wiht mechanical heart valves.TROPONIN [id number] 21:26:00 Test Item Value Reference Range Comments TROPONIN I (BEAKER) (test oadn=424) < ng/mL 0.00-0.03 Troponin I (TnI) levels [...] failure, acidosis, acute neurological disease, and persistent tachyarrhythmia.[id number] 21:18:00 Test Item Value Reference Range Comments MAGNESIUM (BEAKER) (test 1.8 mg/dL 1.6-2.6 Specimen markedly hemolyzed rnaj=887) [id number] 21:18:00 Test Item Value Reference Range Comments PHOSPHORUS (BEAKER) (test 2.1 mg/dL 2.3-4.7 Specimen markedly hemolyzed syzo=385) BASIC METABOLIC [id number] 21:18:00 Test Item Value Reference Range Comments SODIUM (BEAKER) (test 136 meq/L 136-145 giym=539) POTASSIUM (BEAKER) (test 4.8 meq/L 3.5-5.1 Specimen markedly alnc=690) hemolyzed CHLORIDE (BEAKER) (test 103 meq/L 98-107 lens=777) CO2 (BEAKER) (test 29 meq/L 22-29 yfwc=639) BLOOD UREA NITROGEN 17 mg/dL 7-21 (BEAKER) (test bzvi=618) CREATININE (BEAKER) (test 1.33 mg/dL 0.57-1.25 Specimen markedly goyw=489) hemolyzed GLUCOSE RANDOM (BEAKER) 248 mg/dL 70-105 (test kbmg=305) CALCIUM (BEAKER) (test 8.1 mg/dL 8.4-10.2 mtyf=388) EGFR (BEAKER) (test 41 mL/min/1.73 sq m ESTIMATED GFR IS NOT carm=8070) ACCURATE CREATININE CLEARANCE IN PREDICTING GLOMERULAR FILTRATION RATE. ESTIMATED GFR IS NOT APPLICABLE FOR DIALYSIS PATIENTS. HEPATIC FUNCTION [id number] 21:18:00 Test Item Value Reference Range Comments TOTAL PROTEIN (BEAKER) (test 6.4 gm/dL 6.0-8.3 Specimen markedly hemolyzed hlhd=143) ALBUMIN (BEAKER) (test 2.5 g/dL 3.5-5.0 Specimen markedly hemolyzed ewjn=0420) BILIRUBIN TOTAL (BEAKER) (test 1.3 mg/dL 0.2-1.2 Specimen markedly hemolyzed zdia=151) BILIRUBIN DIRECT (BEAKER) (test 0.3 mg/dL 0.1-0.5 Specimen markedly hemolyzed spun=327) ALKALINE PHOSPHATASE (BEAKER) 143 U/L 40-150 (test eqep=943) AST (SGOT) (BEAKER) (test 61 U/L 5-34 Specimen markedly hemolyzed voef=231) ALT (SGPT) (BEAKER) (test 15 U/L 6-55 Specimen markedly hemolyzed lzww=756) CBC W/PLT COUNT & AUTO [id number] 20:58:00 Test Item Value Reference Range Comments WHITE BLOOD CELL COUNT (BEAKER) (test trvd=508) 6.0 K/ L 3.5-10.5 RED BLOOD CELL COUNT (BEAKER) (test olsh=300) 3.57 M/ L 3.93-5.22 HEMOGLOBIN (BEAKER) (test wsdn=347) 9.8 GM/DL 11.2-15.7 HEMATOCRIT (BEAKER) (test dfgt=984) 30.6 % 34.1-44.9 MEAN CORPUSCULAR VOLUME (BEAKER) (test tbdn=723) 85.7 fL 79.4-94.8 MEAN CORPUSCULAR HEMOGLOBIN (BEAKER) (test 27.5 pg 25.6-32.2 afiv=828) MEAN CORPUSCULAR HEMOGLOBIN CONC (BEAKER) (test 32.0 GM/DL 32.2-35.5 yudw=456) RED CELL DISTRIBUTION WIDTH (BEAKER) (test 17.4 % 11.7-14.4 szwa=472) PLATELET COUNT (BEAKER) (test fhdi=210) 199 K/CU MM 150-450 MEAN PLATELET VOLUME (BEAKER) (test tqge=816) 9.1 fL 9.4-12.3 NUCLEATED RED BLOOD CELLS (BEAKER) (test 0 /100 WBC 0-0 avak=595) NEUTROPHILS RELATIVE PERCENT (BEAKER) (test 53 % rwhp=270) LYMPHOCYTES RELATIVE PERCENT (BEAKER) (test 27 % sajx=421) MONOCYTES RELATIVE PERCENT (BEAKER) (test 8 % fwyr=953) EOSINOPHILS RELATIVE PERCENT (BEAKER) (test 10 % uylm=246) BASOPHILS RELATIVE PERCENT (BEAKER) (test 1 % gxwh=807) NEUTROPHILS ABSOLUTE COUNT (BEAKER) (test 3.21 K/ L 1.56-6.13 kssw=201) LYMPHOCYTES ABSOLUTE COUNT (BEAKER) (test 1.62 K/ L 1.18-3.74 naux=522) MONOCYTES ABSOLUTE COUNT (BEAKER) (test 0.50 K/ L 0.24-0.36 cbvt=579) EOSINOPHILS ABSOLUTE COUNT (BEAKER) (test 0.62 K/ L 0.04-0.36 akbw=548) BASOPHILS ABSOLUTE COUNT (BEAKER) (test 0.08 K/ L 0.01-0.08 spuo=011) IMMATURE GRANULOCYTES-RELATIVE PERCENT (BEAKER) 0 % 0-1 (test ejmg=0642) BODY FLUID CULTURE + GRAM [id number] 13:44:00 Test Item Value Reference Range Comments CULTURE (BEAKER) (test ygqb=4796) No growth GRAM STAIN RESULT (BEAKER) (test <1+ White blood cells seen yiwo=4399) GRAM STAIN RESULT (BEAKER) (test No organisms seen cusa=78495) BODY FLUID CULTURE + GRAM [id number] 14:06:00 Test Item Value Reference Range Comments CULTURE (BEAKER) (test rxxt=1835) No growth GRAM STAIN RESULT (BEAKER) (test No White blood cells seen wmol=7662) GRAM STAIN RESULT (BEAKER) (test No organisms seen psox=97208) BASIC METABOLIC [id number] 08:41:00 Test Item Value Reference Range Comments SODIUM (BEAKER) (test 132 meq/L 136-145 uxet=789) POTASSIUM (BEAKER) (test 4.4 meq/L 3.5-5.1 brmd=510) CHLORIDE (BEAKER) (test 100 meq/L 98-107 tqll=595) CO2 (BEAKER) (test 25 meq/L 22-29 bqdj=040) BLOOD UREA NITROGEN 53 mg/dL 7-21 (BEAKER) (test dppf=652) CREATININE (BEAKER) (test 1.80 mg/dL 0.57-1.25 nvmw=512) GLUCOSE RANDOM (BEAKER) 211 mg/dL 70-105 (test bazs=427) CALCIUM (BEAKER) (test 9.0 mg/dL 8.4-10.2 vzjk=115) EGFR (BEAKER) (test 29 mL/min/1.73 sq m ESTIMATED GFR IS NOT wpgy=8038) ACCURATE CREATININE CLEARANCE IN PREDICTING GLOMERULAR FILTRATION RATE. ESTIMATED GFR IS NOT APPLICABLE FOR DIALYSIS PATIENTS. POCT-GLUCOSE [id number] 08:16:00 Test Item Value Reference Range Comments POC-GLUCOSE METER (BEAKER) 213 mg/dL 70-[address] [facility] 67 EDA (test bvep=9873) [facility] [id number] HEPATIC FUNCTION [id number] 06:43:00 Test Item Value Reference Range Comments TOTAL PROTEIN (BEAKER) (test uapu=459) 5.7 gm/dL 6.0-8.3 ALBUMIN (BEAKER) (test fwjh=8235) 4.2 g/dL 3.5-5.0 BILIRUBIN TOTAL (BEAKER) (test ephu=254) 1.6 mg/dL 0.2-1.2 BILIRUBIN DIRECT (BEAKER) (test kmpp=730) 0.8 mg/dL 0.1-0.5 ALKALINE PHOSPHATASE (BEAKER) (test wftc=196) 95 U/L 40-150 AST (SGOT) (BEAKER) (test tcwd=872) 71 U/L 5-34 ALT (SGPT) (BEAKER) (test ppkx=255) 68 U/L 6-55 POCT-GLUCOSE [id number] 22:00:00 Test Item Value Reference Range Comments POC-GLUCOSE METER (BEAKER) 341 mg/dL 70-110 Notified ALEXI ENNIS/TESTED AT [facility] (test kazu=8185) [address] [facility] [place] [address] BODY FLUID CELL COUNT WITH [id number] 20:00:00 Test Item Value Reference Range Comments APPEARANCE FLUID (BEAKER) (test jeca=424) Hazy Clear COLOR FLUID (BEAKER) (test xqsf=058) Straw Colorless, Straw RBC FLUID (BEAKER) (test cqir=398) 4000 /cu mm <=1 ADJUSTED WBC FLUID (BEAKER) (test rwkm=4145) 140 /cu mm <=5 LINING CELLS (BEAKER) (test etnj=8333) 1 /cu mm <=1 NEUTROPHILS FLUID (BEAKER) (test ibue=4811) 1 % LYMPHS FLUID (BEAKER) (test kpxy=476) 30 % MONO/MACROPHAGE FLUID (BEAKER) (test fvli=624) 69 % EOSINOPHILS FLUID (BEAKER) (test xtif=106) 0 % BASO FLUID (BEAKER) (test sgrp=714) 0 % CONTAINER BODY FLUID (BEAKER) (test fqdn=4152) EDTA Tube U/S, [id number] 16:42:00Reason for exam:->ascites limited 6 litersFINAL REPORT PROCEDURE: Ultrasound-guided paracentesis. INDICATION: 59-year-old woman with ascites. DESCRIPTION: After obtaining informed written consent, ultrasound scan of the abdomen identified ascites in the right lower quadrant. The overlying skin was prepped and draped in the usual, sterile fashion and local 2% lidocaine anesthesia was administered. A 5 Kitt[place] catheter was advanced into the peritoneal cavity and 6000 cc of serous fluid was removed. The catheter was removed without immediate complication. Samples were sent for analysis. IMPRESSION:Uncomplicated ultrasound-guided paracentesis with 6000 cc fluid removed. Signed: Antwon Bose Verified Date/Time: 02/24/2019 16:42:07 Reading Location: [address] Ultrasound Reading Room POCT-GLUCOSE [id number] 13:07:00 Test Item Value Reference Range Comments POC-GLUCOSE METER (BEAKER) 290 mg/dL 70-110 TESTED AT [address] (test iqst=7172) [facility] [address] PROTHROMBIN [id number] 12:01:00 Test Item Value Reference Range Comments PROTIME (BEAKER) (test fcxf=489) 14.3 seconds 11.7-14.7 INR (BEAKER) (test exsi=946) 1.1 <=5.9 RECOMMENDED COUMADIN/WARFARIN INR THERAPY RANGESSTANDARD DOSE: 2.0 - 3.0 Includes: PROPHYLAXIS forvenous thrombosis, systemic embolization; TREATMENT for venous thrombosis and/or pulmonary embolus.HIGH RISK: Target INR is 2.5-3.5 for patients with mechanical heart valves.[id number] 12:01:00 Test Item Value Reference Range Comments PARTIAL THROMBOPLASTIN TIME (BEAKER) (test 32.5 seconds 22.5-36.0 ihmw=221) POCT-GLUCOSE [id number] 08:39:00 Test Item Value Reference Range Comments POC-GLUCOSE METER (BEAKER) 279 mg/dL 70-110 TESTED AT [address] (test thkj=5385) [facility] [address] CALCIUM, [id number] 07:04:00 Test Item Value Reference Range Comments CALCIUM IONIZED (BEAKER) (test iggq=509) 1.08 mmol/L 1.12-1.27 PH, BLOOD (BEAKER) (test dkhh=2139) 7.38 COMPREHENSIVE METABOLIC [id number] 05:59:00 Test Item Value Reference Range Comments TOTAL PROTEIN (BEAKER) 5.5 gm/dL 6.0-8.3 (test wdaf=614) ALBUMIN (BEAKER) (test 3.8 g/dL 3.5-5.0 zyag=5474) ALKALINE PHOSPHATASE 125 U/L 40-150 (BEAKER) (test gkhe=540) BILIRUBIN TOTAL (BEAKER) 0.9 mg/dL 0.2-1.2 (test trsa=928) SODIUM (BEAKER) (test 130 meq/L 136-145 osbd=363) POTASSIUM (BEAKER) (test 4.0 meq/L 3.5-5.1 kbxo=595) CHLORIDE (BEAKER) (test 99 meq/L 98-107 nufa=038) CO2 (BEAKER) (test 23 meq/L 22-29 nsvv=545) BLOOD UREA NITROGEN 51 mg/dL 7-21 (BEAKER) (test unmc=656) CREATININE (BEAKER) (test 2.07 mg/dL 0.57-1.25 nhwm=267) GLUCOSE RANDOM (BEAKER) 320 mg/dL 70-105 (test sffz=754) CALCIUM (BEAKER) (test 8.7 mg/dL 8.4-10.2 uzag=774) AST (SGOT) (BEAKER) (test 111 U/L 5-34 lwfz=182) ALT (SGPT) (BEAKER) (test 98 U/L 6-55 hwwz=847) EGFR (BEAKER) (test 24 mL/min/1.73 sq m ESTIMATED GFR IS NOT qqkg=8033) ACCURATE CREATININE CLEARANCE IN PREDICTING GLOMERULAR FILTRATION RATE. ESTIMATED GFR IS NOT APPLICABLE FOR DIALYSIS PATIENTS. [id number] 05:58:00 Test Item Value Reference Range Comments PHOSPHORUS (BEAKER) (test oxok=711) 2.1 mg/dL 2.3-4.7 [id number] 05:58:00 Test Item Value Reference Range Comments MAGNESIUM (BEAKER) (test rglh=834) 2.3 mg/dL 1.6-2.6 HEPATIC FUNCTION [id number] 05:58:00 Test Item Value Reference Range Comments TOTAL PROTEIN (BEAKER) (test vdky=126) 5.5 gm/dL 6.0-8.3 ALBUMIN (BEAKER) (test ndrt=8268) 3.8 g/dL 3.5-5.0 BILIRUBIN TOTAL (BEAKER) (test dkty=589) 0.9 mg/dL 0.2-1.2 BILIRUBIN DIRECT (BEAKER) (test igcd=110) 0.4 mg/dL 0.1-0.5 ALKALINE PHOSPHATASE (BEAKER) (test ltjy=527) 125 U/L 40-150 AST (SGOT) (BEAKER) (test ubil=273) 111 U/L 5-34 ALT (SGPT) (BEAKER) (test jgsm=874) 98 U/L 6-55 CBC W/PLT COUNT & AUTO [id number] 05:29:00 Test Item Value Reference Range Comments WHITE BLOOD CELL COUNT (BEAKER) (test odxg=723) 5.9 K/ L 3.5-10.5 RED BLOOD CELL COUNT (BEAKER) (test tsno=551) 3.00 M/ L 3.93-5.22 HEMOGLOBIN (BEAKER) (test tnot=140) 8.5 GM/DL 11.2-15.7 HEMATOCRIT (BEAKER) (test njer=245) 25.3 % 34.1-44.9 MEAN CORPUSCULAR VOLUME (BEAKER) (test yauc=991) 84.3 fL 79.4-94.8 MEAN CORPUSCULAR HEMOGLOBIN (BEAKER) (test 28.3 pg 25.6-32.2 kbpf=806) MEAN CORPUSCULAR HEMOGLOBIN CONC (BEAKER) (test 33.6 GM/DL 32.2-35.5 pkym=648) RED CELL DISTRIBUTION WIDTH (BEAKER) (test 14.8 % 11.7-14.4 enlg=534) PLATELET COUNT (BEAKER) (test psdb=064) 146 K/CU MM 150-450 MEAN PLATELET VOLUME (BEAKER) (test stcw=084) 10.1 fL 9.4-12.3 NUCLEATED RED BLOOD CELLS (BEAKER) (test 0 /100 WBC 0-0 smvs=304) NEUTROPHILS RELATIVE PERCENT (BEAKER) (test 67 % qhwt=659) LYMPHOCYTES RELATIVE PERCENT (BEAKER) (test 16 % zmnb=834) MONOCYTES RELATIVE PERCENT (BEAKER) (test 10 % pujc=834) EOSINOPHILS RELATIVE PERCENT (BEAKER) (test 6 % qata=812) BASOPHILS RELATIVE PERCENT (BEAKER) (test 1 % yxaj=268) NEUTROPHILS ABSOLUTE COUNT (BEAKER) (test 3.94 K/ L 1.56-6.13 jmvx=565) LYMPHOCYTES ABSOLUTE COUNT (BEAKER) (test 0.96 K/ L 1.18-3.74 jwcn=632) MONOCYTES ABSOLUTE COUNT (BEAKER) (test 0.57 K/ L 0.24-0.36 ypox=602) EOSINOPHILS ABSOLUTE COUNT (BEAKER) (test 0.37 K/ L 0.04-0.36 uocl=268) BASOPHILS ABSOLUTE COUNT (BEAKER) (test 0.03 K/ L 0.01-0.08 nsvz=551) IMMATURE GRANULOCYTES-RELATIVE PERCENT (BEAKER) 0 % 0-1 (test zkcz=9855) POCT-GLUCOSE [id number] 21:01:00 Test Item Value Reference Range Comments POC-GLUCOSE METER (BEAKER) 371 mg/dL 70-110 Notified ALEXI ENNIS/TESTED AT [facility] (test khtt=7421) [address] [place] [address] POCT-GLUCOSE [id number] 17:30:00 Test Item Value Reference Range Comments POC-GLUCOSE METER (BEAKER) 389 mg/dL 70-110 TESTED AT [address] (test vohw=2940) [facility] [address] POCT-GLUCOSE [id number] 08:50:00 Test Item Value Reference Range Comments POC-GLUCOSE METER (BEAKER) 303 mg/dL 70-110 TESTED AT [address] (test eddq=4822) [facility] [address] POCT-GLUCOSE [id number] 08:27:00 Test Item Value Reference Range Comments POC-GLUCOSE METER (BEAKER) 342 mg/dL 70-110 Will Repeat Test/TESTED AT (test uzgj=1116) [address] [address] CALCIUM, [id number] 07:20:00 Test Item Value Reference Range Comments CALCIUM IONIZED (BEAKER) (test osxy=189) 0.98 mmol/L 1.12-1.27 PH, BLOOD (BEAKER) (test lobf=5355) 7.41 COMPREHENSIVE METABOLIC [id number] 07:05:00 Test Item Value Reference Range Comments TOTAL PROTEIN (BEAKER) 5.0 gm/dL 6.0-8.3 (test dvwa=536) ALBUMIN (BEAKER) (test 3.3 g/dL 3.5-5.0 hpwf=7542) ALKALINE PHOSPHATASE 126 U/L 40-150 (BEAKER) (test ngfp=241) BILIRUBIN TOTAL (BEAKER) 1.2 mg/dL 0.2-1.2 (test frwa=442) SODIUM (BEAKER) (test 128 meq/L 136-145 suiv=323) POTASSIUM (BEAKER) (test 4.1 meq/L 3.5-5.1 onov=471) CHLORIDE (BEAKER) (test 98 meq/L 98-107 vqka=574) CO2 (BEAKER) (test 20 meq/L 22-29 llrz=834) BLOOD UREA NITROGEN 43 mg/dL 7-21 (BEAKER) (test peep=678) CREATININE (BEAKER) (test 2.39 mg/dL 0.57-1.25 qtnv=618) GLUCOSE RANDOM (BEAKER) 305 mg/dL 70-105 (test amlm=674) CALCIUM (BEAKER) (test 8.1 mg/dL 8.4-10.2 qgdx=672) AST (SGOT) (BEAKER) (test 173 U/L 5-34 xzwv=677) ALT (SGPT) (BEAKER) (test 143 U/L 6-55 ryht=734) EGFR (BEAKER) (test 21 mL/min/1.73 sq m ESTIMATED GFR IS NOT vofd=5635) ACCURATE CREATININE CLEARANCE IN PREDICTING GLOMERULAR FILTRATION RATE. ESTIMATED GFR IS NOT APPLICABLE FOR DIALYSIS PATIENTS. [id number] 06:56:00 Test Item Value Reference Range Comments PHOSPHORUS (BEAKER) (test uqzi=265) 2.5 mg/dL 2.3-4.7 [id number] 06:56:00 Test Item Value Reference Range Comments MAGNESIUM (BEAKER) (test qmmg=985) 1.9 mg/dL 1.6-2.6 HEPATIC FUNCTION [id number] 06:56:00 Test Item Value Reference Range Comments TOTAL PROTEIN (BEAKER) (test zfos=766) 5.0 gm/dL 6.0-8.3 ALBUMIN (BEAKER) (test mhtx=5279) 3.3 g/dL 3.5-5.0 BILIRUBIN TOTAL (BEAKER) (test wmkg=409) 1.2 mg/dL 0.2-1.2 BILIRUBIN DIRECT (BEAKER) (test tzqd=897) 0.6 mg/dL 0.1-0.5 ALKALINE PHOSPHATASE (BEAKER) (test ckre=485) 126 U/L 40-150 AST (SGOT) (BEAKER) (test xcls=763) 173 U/L 5-34 ALT (SGPT) (BEAKER) (test dqpw=030) 143 U/L 6-55 CBC W/PLT COUNT & AUTO [id number] 06:17:00 Test Item Value Reference Range Comments WHITE BLOOD CELL COUNT (BEAKER) (test hrjv=028) 5.7 K/ L 3.5-10.5 RED BLOOD CELL COUNT (BEAKER) (test ygrs=396) 3.40 M/ L 3.93-5.22 HEMOGLOBIN (BEAKER) (test bovg=444) 9.2 GM/DL 11.2-15.7 HEMATOCRIT (BEAKER) (test ktpo=284) 29.1 % 34.1-44.9 MEAN CORPUSCULAR VOLUME (BEAKER) (test jxsm=653) 85.6 fL 79.4-94.8 MEAN CORPUSCULAR HEMOGLOBIN (BEAKER) (test 27.1 pg 25.6-32.2 fldy=904) MEAN CORPUSCULAR HEMOGLOBIN CONC (BEAKER) (test 31.6 GM/DL 32.2-35.5 zyrf=662) RED CELL DISTRIBUTION WIDTH (BEAKER) (test 14.7 % 11.7-14.4 vtik=080) PLATELET COUNT (BEAKER) (test sidt=189) 128 K/CU MM 150-450 MEAN PLATELET VOLUME (BEAKER) (test kmpe=774) 10.3 fL 9.4-12.3 NUCLEATED RED BLOOD CELLS (BEAKER) (test 0 /100 WBC 0-0 rpyg=207) NEUTROPHILS RELATIVE PERCENT (BEAKER) (test 69 % khsn=172) LYMPHOCYTES RELATIVE PERCENT (BEAKER) (test 15 % ummo=059) MONOCYTES RELATIVE PERCENT (BEAKER) (test 9 % mbsp=449) EOSINOPHILS RELATIVE PERCENT (BEAKER) (test 6 % poje=641) BASOPHILS RELATIVE PERCENT (BEAKER) (test 1 % rcuo=945) NEUTROPHILS ABSOLUTE COUNT (BEAKER) (test 3.91 K/ L 1.56-6.13 leqg=132) LYMPHOCYTES ABSOLUTE COUNT (BEAKER) (test 0.86 K/ L 1.18-3.74 iogx=566) MONOCYTES ABSOLUTE COUNT (BEAKER) (test 0.51 K/ L 0.24-0.36 aqul=395) EOSINOPHILS ABSOLUTE COUNT (BEAKER) (test 0.35 K/ L 0.04-0.36 kvnj=057) BASOPHILS ABSOLUTE COUNT (BEAKER) (test 0.03 K/ L 0.01-0.08 ssre=817) IMMATURE GRANULOCYTES-RELATIVE PERCENT (BEAKER) 0 % 0-1 (test pjjm=8278) BODY FLUID CELL COUNT WITH [id number] 17:06:00 Test Item Value Reference Range Comments APPEARANCE FLUID (BEAKER) (test msmq=165) Hazy Clear COLOR FLUID (BEAKER) (test yeoy=990) Yellow Colorless, Straw RBC FLUID (BEAKER) (test bwce=848) 6000 /cu mm <=1 ADJUSTED WBC FLUID (BEAKER) (test qybq=3717) 125 /cu mm <=5 LINING CELLS (BEAKER) (test obim=4379) 2 /cu mm <=1 NEUTROPHILS FLUID (BEAKER) (test rkjo=6456) 6 % LYMPHS FLUID (BEAKER) (test imzd=491) 21 % MONO/MACROPHAGE FLUID (BEAKER) (test rvxh=617) 73 % EOSINOPHILS FLUID (BEAKER) (test sytr=038) 0 % BASO FLUID (BEAKER) (test work=654) 0 % CONTAINER BODY FLUID (BEAKER) (test lpad=1487) EDTA Tube POCT-GLUCOSE [id number] 16:40:00 Test Item Value Reference Range Comments POC-GLUCOSE METER (BEAKER) 396 mg/dL 70-[address] [facility] [address] (test bzcr=3755) [facility] [address] U/S, [id number] 16:12:00limit to 6 LReason for exam:->ascites, limit to 6 LFINAL REPORT Paracentesis dated 02/22/2019 Procedure: Ultrasound-guided paracentesis. Preprocedure diagnosis: Ascites Postprocedure diagnosis: Ascites Conscious sedation: None. Radiologist: Giovanni Haas M.D. Stripper Soft Plastic: None Anesthesia: 1% Xylocaine mixed with sodium bicarbonate local anesthesia. Technique: After obtaining informed consent, ultrasound-guided paracentesis was performed under usual sterile technique. Using a 5 kyrgyz drainage catheter, puncture was made in the right lower quadrant abdomen. Approximately 6000 cc of serous fluid was removed. Patient tolerated the procedure well without complication. Complication: None Graft/ Implant: None Estimated Blood Loss: None Impression: Ultrasound-guided paracentesis. Signed: Giovanni Haas Verified Date/Time: 02/22/2019 16:12 :23 Reading Location: [address] Body Reading Room RAD, CHEST, 1 VIEW, NON [id number] 12:22:00Reason for exam:->coughShould this be performed at [...] Time: 02/22/2019 12:22:24 Reading Location: [facility] C013W Consult Reading Room POCT-GLUCOSE [id number] 07:55:00 Test Item Value Reference Range Comments POC-GLUCOSE METER (BEAKER) 317 mg/dL 70-[address] [facility] [address] [facility] (test jcga=9309) [facility] [address] POCT-GLUCOSE [id number] 07:24:00 Test Item Value Reference Range Comments POC-GLUCOSE METER (BEAKER) 386 mg/dL 70-110 Notified ALEXI ENNIS/TESTED AT [facility] (test tauz=3766) [address] [facility] [address] POCT-GLUCOSE [id number] 07:24:00 Test Item Value Reference Range Comments POC-GLUCOSE METER (BEAKER) 295 mg/dL 70-[address] [facility] [address] [facility] (test tpcb=6314) [facility] [address] POCT-GLUCOSE [id number] 07:24:00 Test Item Value Reference Range Comments POC-GLUCOSE METER (BEAKER) 256 mg/dL 70-[address] [facility] [address] [facility] (test jgig=8906) [facility] [address] BASIC METABOLIC [id number] 06:50:00 Test Item Value Reference Range Comments SODIUM (BEAKER) (test 128 meq/L 136-145 igoe=806) POTASSIUM (BEAKER) (test 4.0 meq/L 3.5-5.1 wggj=535) CHLORIDE (BEAKER) (test 100 meq/L 98-107 nmkw=793) CO2 (BEAKER) (test 21 meq/L 22-29 xnnv=907) BLOOD UREA NITROGEN 40 mg/dL 7-21 (BEAKER) (test ndie=172) CREATININE (BEAKER) (test 2.62 mg/dL 0.57-1.25 wxfa=109) GLUCOSE RANDOM (BEAKER) 351 mg/dL 70-105 (test cjcz=088) CALCIUM (BEAKER) (test 8.0 mg/dL 8.4-10.2 bnro=065) EGFR (BEAKER) (test 19 mL/min/1.73 sq m ESTIMATED GFR IS NOT tvya=2266) ACCURATE CREATININE CLEARANCE IN PREDICTING GLOMERULAR FILTRATION RATE. ESTIMATED GFR IS NOT APPLICABLE FOR DIALYSIS PATIENTS. [id number] 06:46:00 Test Item Value Reference Range Comments MAGNESIUM (BEAKER) (test qwmw=699) 1.9 mg/dL 1.6-2.6 BLOOD [id number] 20:01:00 Test Item Value Reference Range Comments CULTURE (BEAKER) (test mbdx=8555) No growth in 5 days BLOOD [id number] 20:01:00 Test Item Value Reference Range Comments CULTURE (BEAKER) (test lwuo=3591) No growth in 5 days POCT-GLUCOSE [id number] 08:39:00 Test Item Value Reference Range Comments POC-GLUCOSE METER (BEAKER) 300 mg/dL 70-[address] [facility] [address] (test sdlr=6374) [facility] [address] POCT-GLUCOSE [id number] 08:39:00 Test Item Value Reference Range Comments POC-GLUCOSE METER (BEAKER) 330 mg/dL 70-110 Notified ALEXI ENNIS/TESTED AT [facility] (test kyfp=3651) [address] [facility] [address] COMPREHENSIVE METABOLIC [id number] 08:25:00 Test Item Value Reference Range Comments TOTAL PROTEIN (BEAKER) 4.9 gm/dL 6.0-8.3 (test zykf=864) ALBUMIN (BEAKER) (test 3.3 g/dL 3.5-5.0 gyqq=2919) ALKALINE PHOSPHATASE 129 U/L 40-150 (BEAKER) (test bwxr=558) BILIRUBIN TOTAL (BEAKER) 1.2 mg/dL 0.2-1.2 (test zzst=148) SODIUM (BEAKER) (test 130 meq/L 136-145 mdym=002) POTASSIUM (BEAKER) (test 4.5 meq/L 3.5-5.1 izds=443) CHLORIDE (BEAKER) (test 102 meq/L 98-107 lwnd=268) CO2 (BEAKER) (test 20 meq/L 22-29 qqja=019) BLOOD UREA NITROGEN 32 mg/dL 7-21 (BEAKER) (test qdky=129) CREATININE (BEAKER) (test 2.28 mg/dL 0.57-1.25 bypc=317) GLUCOSE RANDOM (BEAKER) 341 mg/dL 70-105 (test qzrq=802) CALCIUM (BEAKER) (test 8.1 mg/dL 8.4-10.2 dslf=780) AST (SGOT) (BEAKER) (test 851 U/L 5-34 zhlh=797) ALT (SGPT) (BEAKER) (test 345 U/L 6-55 lcad=391) EGFR (BEAKER) (test 22 mL/min/1.73 sq m ESTIMATED GFR IS NOT oiqq=9779) ACCURATE CREATININE CLEARANCE IN PREDICTING GLOMERULAR FILTRATION RATE. ESTIMATED GFR IS NOT APPLICABLE FOR DIALYSIS PATIENTS. [id number] 08:19:00 Test Item Value Reference Range Comments PHOSPHORUS (BEAKER) (test uwke=680) 2.3 mg/dL 2.3-4.7 [id number] 08:19:00 Test Item Value Reference Range Comments MAGNESIUM (BEAKER) (test vldl=472) 1.9 mg/dL 1.6-2.6 CALCIUM, [id number] 07:20:00 Test Item Value Reference Range Comments CALCIUM IONIZED (BEAKER) (test jqpp=603) 0.98 mmol/L 1.12-1.27 PH, BLOOD (BEAKER) (test lgrv=2072) 7.42 CBC W/PLT COUNT & AUTO [id number] 06:36:00 Test Item Value Reference Range Comments WHITE BLOOD CELL COUNT (BEAKER) (test zjgp=065) 8.1 K/ L 3.5-10.5 RED BLOOD CELL COUNT (BEAKER) (test qyit=159) 3.43 M/ L 3.93-5.22 HEMOGLOBIN (BEAKER) (test gkjv=221) 9.2 GM/DL 11.2-15.7 HEMATOCRIT (BEAKER) (test usii=394) 29.3 % 34.1-44.9 MEAN CORPUSCULAR VOLUME (BEAKER) (test aorb=138) 85.4 fL 79.4-94.8 MEAN CORPUSCULAR HEMOGLOBIN (BEAKER) (test 26.8 pg 25.6-32.2 poem=682) MEAN CORPUSCULAR HEMOGLOBIN CONC (BEAKER) (test 31.4 GM/DL 32.2-35.5 imwn=681) RED CELL DISTRIBUTION WIDTH (BEAKER) (test 14.6 % 11.7-14.4 kkxi=119) PLATELET COUNT (BEAKER) (test jycs=329) 132 K/CU MM 150-450 MEAN PLATELET VOLUME (BEAKER) (test nayf=143) 9.3 fL 9.4-12.3 NUCLEATED RED BLOOD CELLS (BEAKER) (test 0 /100 WBC 0-0 ynbv=960) NEUTROPHILS RELATIVE PERCENT (BEAKER) (test 77 % ecbm=344) LYMPHOCYTES RELATIVE PERCENT (BEAKER) (test 13 % czrs=660) MONOCYTES RELATIVE PERCENT (BEAKER) (test 8 % rabd=203) EOSINOPHILS RELATIVE PERCENT (BEAKER) (test 2 % mtrp=461) BASOPHILS RELATIVE PERCENT (BEAKER) (test 1 % lijd=650) NEUTROPHILS ABSOLUTE COUNT (BEAKER) (test 6.17 K/ L 1.56-6.13 otln=458) LYMPHOCYTES ABSOLUTE COUNT (BEAKER) (test 1.02 K/ L 1.18-3.74 yzjm=591) MONOCYTES ABSOLUTE COUNT (BEAKER) (test 0.61 K/ L 0.24-0.36 fdku=730) EOSINOPHILS ABSOLUTE COUNT (BEAKER) (test 0.18 K/ L 0.04-0.36 jsla=691) BASOPHILS ABSOLUTE COUNT (BEAKER) (test 0.05 K/ L 0.01-0.08 xyrw=438) IMMATURE GRANULOCYTES-RELATIVE PERCENT (BEAKER) 1 % 0-1 (test jrzz=9103) BASIC METABOLIC [id number] 19:24:00 Test Item Value Reference Range Comments SODIUM (BEAKER) (test 132 meq/L 136-145 glrk=762) POTASSIUM (BEAKER) (test 4.8 meq/L 3.5-5.1 zbrw=693) CHLORIDE (BEAKER) (test 103 meq/L 98-107 jnxx=507) CO2 (BEAKER) (test 20 meq/L 22-29 pake=551) BLOOD UREA NITROGEN 30 mg/dL 7-21 (BEAKER) (test ojci=453) CREATININE (BEAKER) (test 1.85 mg/dL 0.57-1.25 qyvt=216) GLUCOSE RANDOM (BEAKER) 297 mg/dL 70-105 (test znir=659) CALCIUM (BEAKER) (test 8.7 mg/dL 8.4-10.2 rvws=618) EGFR (BEAKER) (test 28 mL/min/1.73 sq m ESTIMATED GFR IS NOT rdli=2791) ACCURATE CREATININE CLEARANCE IN PREDICTING GLOMERULAR FILTRATION RATE. ESTIMATED GFR IS NOT APPLICABLE FOR DIALYSIS PATIENTS. Please draw [address] Quiroz at [phone] with results.Call [phone] 19:22:00 Test Item Value Reference Range Comments SODIUM (BEAKER) (test axio=886) 132 meq/L 136-145 POTASSIUM (BEAKER) (test somd=991) 4.8 meq/L 3.5-5.1 CHLORIDE (BEAKER) (test wutb=114) 103 meq/L 98-107 CO2 (BEAKER) (test yhqk=965) 20 meq/L 22-29 Please draw 4 hours after SPS. Page Dr. Quiroz at [phone] with results.Call [id number] 18:11:00 Test Item Value Reference Range Comments POC-GLUCOSE METER (BEAKER) 314 mg/dL 70-110 TESTED AT [address] (test esvl=5224) [facility] [id number] POCT-GLUCOSE [id number] 17:29:00 Test Item Value Reference Range Comments POC-GLUCOSE METER (BEAKER) 255 mg/dL 70-110 TESTED AT [address] (test yytu=3587) [facility] [id number] POCT-GLUCOSE [id number] 13:02:00 Test Item Value Reference Range Comments POC-GLUCOSE METER (BEAKER) 289 mg/dL 70-110 TESTED AT [address] (test knwg=9971) [place] [id number] BODY FLUID CULTURE + GRAM [id number] 12:08:00 Test Item Value Reference Range Comments CULTURE (BEAKER) (test yxqb=2450) No growth GRAM STAIN RESULT (BEAKER) (test <1+ WBCs brjp=2961) GRAM STAIN RESULT (BEAKER) (test No organisms seen zrfp=68382) SEAMUS [id number] 09:29:00Reason for exam:->cirrhosis/ portal hypertension , refractory [...] and a bleeding placement of a 10 [place] sheath from theright hepatic vein to the [...] 1 L of yellow fluid. The 5 [place] needle/catheter was inserted with real-time ultrasound guidance into the peritoneal cavity in the right lateral abdomen following sterile preparation. Following this, the sheath catheter was removed. CONCLUSION: Successful TIPS and paracentesis. Signed: Yulia Kaba MDReport Verified Date/Time: 02/20/2019 09:29:18 Reading Location : [facility] P048 Angio Body Reading Room CALCIUM, [id number] 06:43:00 Test Item Value Reference Range Comments CALCIUM IONIZED (BEAKER) (test jsjs=636) 1.02 mmol/L 1.12-1.27 PH, BLOOD (BEAKER) (test soyn=5561) 7.40 [id number] 06:12:00 Test Item Value Reference Range Comments PHOSPHORUS (BEAKER) (test gyzo=562) 2.5 mg/dL 2.3-4.7 [id number] 06:12:00 Test Item Value Reference Range Comments MAGNESIUM (BEAKER) (test iaty=988) 1.6 mg/dL 1.6-2.6 HEPATIC FUNCTION [id number] 06:12:00 Test Item Value Reference Range Comments TOTAL PROTEIN (BEAKER) (test hnjv=817) 5.3 gm/dL 6.0-8.3 ALBUMIN (BEAKER) (test hvkg=2340) 3.6 g/dL 3.5-5.0 BILIRUBIN TOTAL (BEAKER) (test lwkk=039) 1.2 mg/dL 0.2-1.2 BILIRUBIN DIRECT (BEAKER) (test sjny=020) 0.6 mg/dL 0.1-0.5 ALKALINE PHOSPHATASE (BEAKER) (test ufli=598) 80 U/L 40-150 AST (SGOT) (BEAKER) (test citd=084) 99 U/L 5-34 ALT (SGPT) (BEAKER) (test zeyp=780) 52 U/L 6-55 COMPREHENSIVE METABOLIC [id number] 06:12:00 Test Item Value Reference Range Comments TOTAL PROTEIN (BEAKER) 5.3 gm/dL 6.0-8.3 (test elrn=483) ALBUMIN (BEAKER) (test 3.6 g/dL 3.5-5.0 podg=6799) ALKALINE PHOSPHATASE 80 U/L 40-150 (BEAKER) (test hprb=568) BILIRUBIN TOTAL (BEAKER) 1.2 mg/dL 0.2-1.2 (test ifot=849) SODIUM (BEAKER) (test 133 meq/L 136-145 yovs=483) POTASSIUM (BEAKER) (test 5.4 meq/L 3.5-5.1 mkwt=908) CHLORIDE (BEAKER) (test 104 meq/L 98-107 wxae=816) CO2 (BEAKER) (test 22 meq/L 22-29 woqb=126) BLOOD UREA NITROGEN 27 mg/dL 7-21 (BEAKER) (test dgpt=120) CREATININE (BEAKER) (test 1.58 mg/dL 0.57-1.25 skax=952) GLUCOSE RANDOM (BEAKER) 300 mg/dL 70-105 (test nsta=018) CALCIUM (BEAKER) (test 8.4 mg/dL 8.4-10.2 skyy=742) AST (SGOT) (BEAKER) (test 99 U/L 5-34 raxo=974) ALT (SGPT) (BEAKER) (test 52 U/L 6-55 tduo=390) EGFR (BEAKER) (test 33 mL/min/1.73 sq m ESTIMATED GFR IS NOT rsgo=9005) ACCURATE CREATININE CLEARANCE IN PREDICTING GLOMERULAR FILTRATION RATE. ESTIMATED GFR IS NOT APPLICABLE FOR DIALYSIS PATIENTS. PROTHROMBIN [id number] 05:57:00 Test Item Value Reference Range Comments PROTIME (BEAKER) (test vqnk=045) 16.4 seconds 11.7-14.7 INR (BEAKER) (test cxun=116) 1.3 <=5.9 RECOMMENDED COUMADIN/WARFARIN INR THERAPY RANGESSTANDARD DOSE: 2.0 - 3.0 Includes: PROPHYLAXIS forvenous thrombosis, systemic embolization; TREATMENT for venous thrombosis and/or pulmonary embolus.HIGH RISK: Target INR is 2.5-3.5 for patients with mechanical heart valves.CBC W/PLT COUNT & AUTO [id number] 05:54:00 Test Item Value Reference Range Comments WHITE BLOOD CELL COUNT (BEAKER) (test gjkt=100) 7.9 K/ L 3.5-10.5 RED BLOOD CELL COUNT (BEAKER) (test jqpq=490) 3.24 M/ L 3.93-5.22 HEMOGLOBIN (BEAKER) (test pvma=786) 8.9 GM/DL 11.2-15.7 HEMATOCRIT (BEAKER) (test axxc=959) 28.0 % 34.1-44.9 MEAN CORPUSCULAR VOLUME (BEAKER) (test wbfq=693) 86.4 fL 79.4-94.8 MEAN CORPUSCULAR HEMOGLOBIN (BEAKER) (test 27.5 pg 25.6-32.2 bxjq=561) MEAN CORPUSCULAR HEMOGLOBIN CONC (BEAKER) (test 31.8 GM/DL 32.2-35.5 tdzc=477) RED CELL DISTRIBUTION WIDTH (BEAKER) (test 14.4 % 11.7-14.4 zfnj=554) PLATELET COUNT (BEAKER) (test vbpv=255) 132 K/CU MM 150-450 MEAN PLATELET VOLUME (BEAKER) (test ibaq=873) 9.3 fL 9.4-12.3 NUCLEATED RED BLOOD CELLS (BEAKER) (test 0 /100 WBC 0-0 swjr=173) NEUTROPHILS RELATIVE PERCENT (BEAKER) (test 83 % nrsf=975) LYMPHOCYTES RELATIVE PERCENT (BEAKER) (test 10 % tpzu=116) MONOCYTES RELATIVE PERCENT (BEAKER) (test 7 % iaao=285) EOSINOPHILS RELATIVE PERCENT (BEAKER) (test 0 % tsad=817) BASOPHILS RELATIVE PERCENT (BEAKER) (test 0 % ucch=660) NEUTROPHILS ABSOLUTE COUNT (BEAKER) (test 6.55 K/ L 1.56-6.13 sdsq=054) LYMPHOCYTES ABSOLUTE COUNT (BEAKER) (test 0.77 K/ L 1.18-3.74 ldpz=311) MONOCYTES ABSOLUTE COUNT (BEAKER) (test 0.55 K/ L 0.24-0.36 bxgw=500) EOSINOPHILS ABSOLUTE COUNT (BEAKER) (test 0.00 K/ L 0.04-0.36 cwwo=542) BASOPHILS ABSOLUTE COUNT (BEAKER) (test 0.02 K/ L 0.01-0.08 aizm=495) IMMATURE GRANULOCYTES-RELATIVE PERCENT (BEAKER) 0 % 0-1 (test vgtu=6872) POCT-GLUCOSE [id number] 19:01:00 Test Item Value Reference Range Comments POC-GLUCOSE METER (BEAKER) 301 mg/dL 70-[address] [facility] [address] [facility] (test yjjw=9014) [facility] [address] CT, ABDOMEN, WITHOUT [id number] 12:33:00FINAL REPORT ABDOMINAL CT DATED 02/19/2019 CLINICAL [...] MDReport Verified Date/Time: 02/19/2019 12:33:54 Reading Location: [facility] C013Y CT Body Reading Room Electronicallysigned by: GIOVANNI HAAS M.D. on 02/19/2019 12:33 PMBODY FLUID CULTURE + GRAM [id number] 12:08:00 Test Item Value Reference Range Comments CULTURE (BEAKER) (test mbqe=8208) No growth GRAM STAIN RESULT (BEAKER) (test <1+ WBCs nckj=9397) GRAM STAIN RESULT (BEAKER) (test No organisms seen uaxz=00497) POCT-GLUCOSE [id number] 09:38:00 Test Item Value Reference Range Comments POC-GLUCOSE METER (BEAKER) 274 mg/dL 70-[address] [facility] [address] [place] [address] (test rsxc=9929) [facility] [address] CALCIUM, [id number] 06:56:00 Test Item Value Reference Range Comments CALCIUM IONIZED (BEAKER) (test mvsw=032) 1.05 mmol/L 1.12-1.27 PH, BLOOD (BEAKER) (test uptw=1983) 7.40 [id number] 06:22:00 Test Item Value Reference Range Comments PHOSPHORUS (BEAKER) (test wwil=612) 2.3 mg/dL 2.3-4.7 [id number] 06:22:00 Test Item Value Reference Range Comments MAGNESIUM (BEAKER) (test masp=513) 1.7 mg/dL 1.6-2.6 HEPATIC FUNCTION [id number] 06:22:00 Test Item Value Reference Range Comments TOTAL PROTEIN (BEAKER) (test ecpe=535) 5.6 gm/dL 6.0-8.3 ALBUMIN (BEAKER) (test bvwb=4228) 3.4 g/dL 3.5-5.0 BILIRUBIN TOTAL (BEAKER) (test asit=792) 0.9 mg/dL 0.2-1.2 BILIRUBIN DIRECT (BEAKER) (test nysp=772) 0.4 mg/dL 0.1-0.5 ALKALINE PHOSPHATASE (BEAKER) (test xbrw=672) 121 U/L 40-150 AST (SGOT) (BEAKER) (test jztb=586) 28 U/L 5-34 ALT (SGPT) (BEAKER) (test ftyj=377) 12 U/L 6-55 COMPREHENSIVE METABOLIC [id number] 06:22:00 Test Item Value Reference Range Comments TOTAL PROTEIN (BEAKER) 5.6 gm/dL 6.0-8.3 (test zcnp=524) ALBUMIN (BEAKER) (test 3.4 g/dL 3.5-5.0 hpgc=8706) ALKALINE PHOSPHATASE 121 U/L 40-150 (BEAKER) (test mmev=559) BILIRUBIN TOTAL (BEAKER) 0.9 mg/dL 0.2-1.2 (test qvpl=995) SODIUM (BEAKER) (test 135 meq/L 136-145 vqhi=768) POTASSIUM (BEAKER) (test 4.5 meq/L 3.5-5.1 yntm=200) CHLORIDE (BEAKER) (test 105 meq/L 98-107 nbwb=347) CO2 (BEAKER) (test 22 meq/L 22-29 rsxd=983) BLOOD UREA NITROGEN 29 mg/dL 7-21 (BEAKER) (test boao=058) CREATININE (BEAKER) (test 1.38 mg/dL 0.57-1.25 ispf=433) GLUCOSE RANDOM (BEAKER) 313 mg/dL 70-105 (test gpid=769) CALCIUM (BEAKER) (test 8.7 mg/dL 8.4-10.2 ccno=546) AST (SGOT) (BEAKER) (test 28 U/L 5-34 ftsz=878) ALT (SGPT) (BEAKER) (test 12 U/L 6-55 lvsk=635) EGFR (BEAKER) (test 39 mL/min/1.73 sq m ESTIMATED GFR IS NOT nkpa=0760) ACCURATE CREATININE CLEARANCE IN PREDICTING GLOMERULAR FILTRATION RATE. ESTIMATED GFR IS NOT APPLICABLE FOR DIALYSIS PATIENTS. PROTHROMBIN [id number] 06:15:00 Test Item Value Reference Range Comments PROTIME (BEAKER) (test dnkh=258) 14.0 seconds 11.7-14.7 INR (BEAKER) (test rkyx=972) 1.1 <=5.9 RECOMMENDED COUMADIN/WARFARIN INR THERAPY RANGESSTANDARD DOSE: 2.0 - 3.0 Includes: PROPHYLAXIS forvenous thrombosis, systemic embolization; TREATMENT for venous thrombosis and/or pulmonary embolus.HIGH RISK: Target INR is 2.5-3.5 for patients with mechanical heart valves.CBC W/PLT COUNT & AUTO [id number] 05:57:00 Test Item Value Reference Range Comments WHITE BLOOD CELL COUNT (BEAKER) (test yulx=328) 6.9 K/ L 3.5-10.5 RED BLOOD CELL COUNT (BEAKER) (test bwel=045) 3.83 M/ L 3.93-5.22 HEMOGLOBIN (BEAKER) (test gxhh=081) 10.5 GM/DL 11.2-15.7 HEMATOCRIT (BEAKER) (test obuz=499) 33.1 % 34.1-44.9 MEAN CORPUSCULAR VOLUME (BEAKER) (test pdfo=231) 86.4 fL 79.4-94.8 MEAN CORPUSCULAR HEMOGLOBIN (BEAKER) (test 27.4 pg 25.6-32.2 yjke=399) MEAN CORPUSCULAR HEMOGLOBIN CONC (BEAKER) (test 31.7 GM/DL 32.2-35.5 gquz=866) RED CELL DISTRIBUTION WIDTH (BEAKER) (test 14.4 % 11.7-14.4 lxlr=236) PLATELET COUNT (BEAKER) (test itgm=615) 175 K/CU MM 150-450 MEAN PLATELET VOLUME (BEAKER) (test cvwb=223) 9.9 fL 9.4-12.3 NUCLEATED RED BLOOD CELLS (BEAKER) (test 0 /100 WBC 0-0 sdnw=355) NEUTROPHILS RELATIVE PERCENT (BEAKER) (test 73 % ueai=062) LYMPHOCYTES RELATIVE PERCENT (BEAKER) (test 16 % cakx=689) MONOCYTES RELATIVE PERCENT (BEAKER) (test 7 % yfcf=398) EOSINOPHILS RELATIVE PERCENT (BEAKER) (test 4 % sgoc=709) BASOPHILS RELATIVE PERCENT (BEAKER) (test 1 % sygn=100) NEUTROPHILS ABSOLUTE COUNT (BEAKER) (test 4.99 K/ L 1.56-6.13 tsom=975) LYMPHOCYTES ABSOLUTE COUNT (BEAKER) (test 1.09 K/ L 1.18-3.74 jwll=004) MONOCYTES ABSOLUTE COUNT (BEAKER) (test 0.50 K/ L 0.24-0.36 dvzl=251) EOSINOPHILS ABSOLUTE COUNT (BEAKER) (test 0.25 K/ L 0.04-0.36 bnem=313) BASOPHILS ABSOLUTE COUNT (BEAKER) (test 0.04 K/ L 0.01-0.08 pxmq=673) IMMATURE GRANULOCYTES-RELATIVE PERCENT (BEAKER) 0 % 0-1 (test vjac=9840) POCT-GLUCOSE [id number] 23:05:00 Test Item Value Reference Range Comments POC-GLUCOSE METER (BEAKER) 412 mg/dL 70-110 Will Repeat Test/TESTED AT (test owci=8870) [address] [address] POCT-GLUCOSE [id number] 22:12:00 Test Item Value Reference Range Comments POC-GLUCOSE METER (BEAKER) 371 mg/dL 70-110 TESTED AT [address] (test slxo=7741) [facility] [address] BODY FLUID CELL COUNT WITH [id number] 13:06:00 Test Item Value Reference Range Comments APPEARANCE FLUID (BEAKER) (test mjqq=685) Slightly Hazy Clear COLOR FLUID (BEAKER) (test uxjx=993) Yellow Colorless, Straw RBC FLUID (BEAKER) (test rvbm=314) 252 /cu mm <=1 ADJUSTED WBC FLUID (BEAKER) (test trsb=3757) 112 /cu mm <=5 LINING CELLS (BEAKER) (test ggpg=7933) 10 /cu mm <=1 NEUTROPHILS FLUID (BEAKER) (test krkq=9205) 8 % LYMPHS FLUID (BEAKER) (test dgci=555) 40 % MONO/MACROPHAGE FLUID (BEAKER) (test 43 % bcjd=603) EOSINOPHILS FLUID (BEAKER) (test onzc=386) 0 % BASO FLUID (BEAKER) (test fssj=728) 0 % CONTAINER BODY FLUID (BEAKER) (test EDTA Tube moob=5491) U/S, [id number] 10:21:00Limit 8 LReason for exam:->ascites, limit 8 [...] skin and deep soft tissues. A 5 Kittitian one-step catheter was inserted and removed from the peritoneal space and approximately 8.0 liters of clear yellow fluid was aspirated from the abdomen. There were no immediate complications. Impression: Successful ultrasound guided paracentesis with aspiration of 8.0 liters of fluid. Signed: Akil Chung MDReport Verified Date/ Time: 02/18/2019 10:21:08 Reading Location: [address] Ultrasound Reading Room [id number] 07:08:00 Test Item Value Reference Range Comments MAGNESIUM (BEAKER) (test omgm=200) 1.7 mg/dL 1.6-2.6 HEPATIC FUNCTION [id number] 07:08:00 Test Item Value Reference Range Comments TOTAL PROTEIN (BEAKER) (test ojfn=507) 5.4 gm/dL 6.0-8.3 ALBUMIN (BEAKER) (test hjnc=3176) 3.2 g/dL 3.5-5.0 BILIRUBIN TOTAL (BEAKER) (test kquw=760) 0.8 mg/dL 0.2-1.2 BILIRUBIN DIRECT (BEAKER) (test bhdw=695) 0.4 mg/dL 0.1-0.5 ALKALINE PHOSPHATASE (BEAKER) (test mdco=749) 104 U/L 40-150 AST (SGOT) (BEAKER) (test lufz=555) 20 U/L 5-34 ALT (SGPT) (BEAKER) (test rikn=896) 10 U/L 6-55 COMPREHENSIVE METABOLIC [id number] 07:08:00 Test Item Value Reference Range Comments TOTAL PROTEIN (BEAKER) 5.4 gm/dL 6.0-8.3 (test aioy=854) ALBUMIN (BEAKER) (test 3.2 g/dL 3.5-5.0 ymah=4727) ALKALINE PHOSPHATASE 104 U/L 40-150 (BEAKER) (test vtsu=694) BILIRUBIN TOTAL (BEAKER) 0.8 mg/dL 0.2-1.2 (test jngb=122) SODIUM (BEAKER) (test 136 meq/L 136-145 ukuq=036) POTASSIUM (BEAKER) (test 4.3 meq/L 3.5-5.1 glst=839) CHLORIDE (BEAKER) (test 108 meq/L 98-107 vncy=262) CO2 (BEAKER) (test 22 meq/L 22-29 oper=575) BLOOD UREA NITROGEN 31 mg/dL 7-21 (BEAKER) (test kkvv=321) CREATININE (BEAKER) (test 1.26 mg/dL 0.57-1.25 ktoy=658) GLUCOSE RANDOM (BEAKER) 262 mg/dL 70-105 (test bhzv=541) CALCIUM (BEAKER) (test 8.5 mg/dL 8.4-10.2 eozd=643) AST (SGOT) (BEAKER) (test 20 U/L 5-34 pmnm=721) ALT (SGPT) (BEAKER) (test 10 U/L 6-55 lpxs=839) EGFR (BEAKER) (test 43 mL/min/1.73 sq m ESTIMATED GFR IS NOT oblh=5155) ACCURATE CREATININE CLEARANCE IN PREDICTING GLOMERULAR FILTRATION RATE. ESTIMATED GFR IS NOT APPLICABLE FOR DIALYSIS PATIENTS. [id number] 07:07:00 Test Item Value Reference Range Comments PHOSPHORUS (BEAKER) (test zayt=296) 2.7 mg/dL 2.3-4.7 POCT-GLUCOSE [id number] 06:31:00 Test Item Value Reference Range Comments POC-GLUCOSE METER (BEAKER) 249 mg/dL 70-[address] [facility] [address] [facility] (test rryy=0573) [facility] [address] URINALYSIS W/ [id number] 06:17:00 Test Item Value Reference Range Comments COLOR (BEAKER) (test qcod=567) Yellow CLARITY (BEAKER) (test thqj=571) Clear SPECIFIC GRAVITY UA (BEAKER) (test sdbv=735) 1.013 1.001-1.035 PH UA (BEAKER) (test wdnn=318) 5.0 5.0-8.0 PROTEIN UA (BEAKER) (test omil=083) Negative Negative GLUCOSE UA (BEAKER) (test sxhz=574) 100 mg/dL Negative KETONES UA (BEAKER) (test hqkj=851) Negative Negative BILIRUBIN UA (BEAKER) (test jclc=205) Negative Negative BLOOD UA (BEAKER) (test ytdu=354) Negative Negative NITRITE UA (BEAKER) (test ohmk=695) Negative Negative LEUKOCYTE ESTERASE UA (BEAKER) (test srju=698) Large Negative UROBILINOGEN UA (BEAKER) (test kcbw=561) 0.2 mg/dL 0.2-1.0 RBC UA (BEAKER) (test mvfk=464) 2 /HPF WBC UA (BEAKER) (test blvi=179) 24 /HPF SQUAMOUS EPITHELIAL (BEAKER) (test wcyw=902) 14 /HPF HYALINE CASTS (BEAKER) (test yieo=998) 3 /LPF SOURCE(BEAKER) (test dmmm=8068) Urine, Voided [id number] 05:53:00 Test Item Value Reference Range Comments PARTIAL THROMBOPLASTIN TIME (BEAKER) (test 20.1 seconds 22.5-36.0 jrgy=307) CALCIUM, [id number] 05:50:00 Test Item Value Reference Range Comments CALCIUM IONIZED (BEAKER) (test nlxp=569) 1.00 mmol/L 1.12-1.27 PH, BLOOD (BEAKER) (test opqj=0940) 7.43 PROTHROMBIN [id number] 04:54:00 Test Item Value Reference Range Comments PROTIME (BEAKER) (test lzrr=317) 13.8 seconds 11.7-14.7 INR (BEAKER) (test jjsp=007) 1.0 <=5.9 RECOMMENDED COUMADIN/WARFARIN INR THERAPY RANGESSTANDARD DOSE: 2.0 - 3.0 Includes: PROPHYLAXIS forvenous thrombosis, systemic embolization; TREATMENT for venous thrombosis and/or pulmonary embolus.HIGH RISK: Target INR is 2.5-3.5 for patients with mechanical heart valves.CREATININE, RANDOM [id number] 04: 48:00 Test Item Value Reference Range Comments CREATININE URINE (BEAKER) (test kbbc=626) 115.9 mg/dL Reference Range: No NormalsPROTEIN, RANDOM [id number] 04:48:00 Test Item Value Reference Range Comments PROTEIN, URINE (BEAKER) (test ewoh=3578) 12 mg/dL 0-14 CBC W/PLT COUNT & AUTO [id number] 04:30:00 Test Item Value Reference Range Comments WHITE BLOOD CELL COUNT (BEAKER) (test eimp=921) 5.2 K/ L 3.5-10.5 RED BLOOD CELL COUNT (BEAKER) (test crkg=821) 3.58 M/ L 3.93-5.22 HEMOGLOBIN (BEAKER) (test txiq=825) 9.8 GM/DL 11.2-15.7 HEMATOCRIT (BEAKER) (test tqhm=240) 31.6 % 34.1-44.9 MEAN CORPUSCULAR VOLUME (BEAKER) (test jfnr=810) 88.3 fL 79.4-94.8 MEAN CORPUSCULAR HEMOGLOBIN (BEAKER) (test 27.4 pg 25.6-32.2 epws=177) MEAN CORPUSCULAR HEMOGLOBIN CONC (BEAKER) (test 31.0 GM/DL 32.2-35.5 xmxr=384) RED CELL DISTRIBUTION WIDTH (BEAKER) (test 14.4 % 11.7-14.4 trxg=140) PLATELET COUNT (BEAKER) (test kloz=547) 173 K/CU MM 150-450 MEAN PLATELET VOLUME (BEAKER) (test fyrt=651) 9.6 fL 9.4-12.3 NUCLEATED RED BLOOD CELLS (BEAKER) (test 0 /100 WBC 0-0 wkln=673) NEUTROPHILS RELATIVE PERCENT (BEAKER) (test 67 % yckn=138) LYMPHOCYTES RELATIVE PERCENT (BEAKER) (test 19 % uobz=479) MONOCYTES RELATIVE PERCENT (BEAKER) (test 8 % prur=566) EOSINOPHILS RELATIVE PERCENT (BEAKER) (test 5 % klan=627) BASOPHILS RELATIVE PERCENT (BEAKER) (test 1 % kjye=536) NEUTROPHILS ABSOLUTE COUNT (BEAKER) (test 3.43 K/ L 1.56-6.13 pqdj=629) LYMPHOCYTES ABSOLUTE COUNT (BEAKER) (test 0.98 K/ L 1.18-3.74 ndjw=162) MONOCYTES ABSOLUTE COUNT (BEAKER) (test 0.42 K/ L 0.24-0.36 nfgv=110) EOSINOPHILS ABSOLUTE COUNT (BEAKER) (test 0.26 K/ L 0.04-0.36 umma=025) BASOPHILS ABSOLUTE COUNT (BEAKER) (test 0.04 K/ L 0.01-0.08 fnok=319) IMMATURE GRANULOCYTES-RELATIVE PERCENT (BEAKER) 0 % 0-1 (test igye=9918) U/S, ABDOMINAL, WITH [id number] 03:48:00Reason for exam:->TIPS workup , assess for [...] Mckinneyepcristy Verified Date/Time: 02/18/2019 03:48:21 Reading Location: [facility] C013V Neuro Reading Room Electronically signed by: Se SCHNEIDER 2018 03:48 AMPOCT-GLUCOSE [id number] 00:28:00 Test Item Value Reference Range Comments POC-GLUCOSE METER (BEAKER) 330 mg/dL 70-110 Will Repeat Test/TESTED AT (test jnek=0169) [facility] [address] [facility] [address] BODY FLUID CELL COUNT WITH [id number] 18:02:00 Test Item Value Reference Range Comments APPEARANCE FLUID (BEAKER) (test wbpt=182) Clear Clear COLOR FLUID (BEAKER) (test adgx=748) Yellow Colorless, Straw RBC FLUID (BEAKER) (test rfoh=713) 20 /cu mm <=1 ADJUSTED WBC FLUID (BEAKER) (test hobu=3796) 50 /cu mm <=5 LINING CELLS (BEAKER) (test wfly=1990) 0 /cu mm <=1 NEUTROPHILS FLUID (BEAKER) (test rsyp=0231) 1 % LYMPHS FLUID (BEAKER) (test sqtu=672) 38 % MONO/MACROPHAGE FLUID (BEAKER) (test bccz=492) 61 % EOSINOPHILS FLUID (BEAKER) (test mdhv=569) 0 % BASO FLUID (BEAKER) (test lvhh=642) 0 % CONTAINER BODY FLUID (BEAKER) (test wypi=4942) EDTA Tube U/S, [id number] 16:30:00limit volume to 8 LReason for exam:-> [...] Sadler Verified Date/Time: 02/17 16:30:42 Reading Location: [facility] P006J Ultrasound Reading Room POCT-GLUCOSE [id number] 09:48:00 Test Item Value Reference Range Comments POC-GLUCOSE METER (BEAKER) 198 mg/dL 70-110 TESTED AT [address] (test yyuc=6910) [place] [address] BASIC METABOLIC [id number] 06:30:00 Test Item Value Reference Range Comments SODIUM (BEAKER) (test 137 meq/L 136-145 muho=355) POTASSIUM (BEAKER) (test 4.5 meq/L 3.5-5.1 droh=118) CHLORIDE (BEAKER) (test 107 meq/L 98-107 snbu=181) CO2 (BEAKER) (test 24 meq/L 22-29 rfuy=148) BLOOD UREA NITROGEN 41 mg/dL 7-21 (BEAKER) (test ravt=183) CREATININE (BEAKER) (test 1.48 mg/dL 0.57-1.25 uwbv=337) GLUCOSE RANDOM (BEAKER) 200 mg/dL 70-105 (test jarf=050) CALCIUM (BEAKER) (test 8.9 mg/dL 8.4-10.2 oamn=372) EGFR (BEAKER) (test 36 mL/min/1.73 sq m ESTIMATED GFR IS NOT fzek=3631) ACCURATE CREATININE CLEARANCE IN PREDICTING GLOMERULAR FILTRATION RATE. ESTIMATED GFR IS NOT APPLICABLE FOR DIALYSIS PATIENTS. POCT-GLUCOSE [id number] 17:31:00 Test Item Value Reference Range Comments POC-GLUCOSE METER (BEAKER) 165 mg/dL 70-110 TESTED AT [address] (test rvef=9450) [place] [address] U/S, [id number] 16:00:00Reason for exam:->ascites SOBFINAL REPORT PROCEDURE: Ultrasound-guided paracentesis. INDICATION: Ascites. DESCRIPTION: This paracentesis was performed by Lesley Parnell under the direct supervision of Rodriguez Hendrix. After obtaining informed written consent, ultrasound scan of the abdomen identified ascites in the right lower quadrant. The overlying skin was prepped and draped in the usual, sterile fashion andlocal 2% lidocaine anesthesia was administered. A 5 Kittitian catheter was advanced into the peritonealcavity and 6000 mL of clear yellow fluid was removed. The catheter was removed without immediate complication. Samples were sent for analysis. IMPRESSION: Uncomplicated ultrasound-guided paracentesis with 6000 mL fluid removed. Signed: Rodriguez Hendrix MDReport Verified Date/Time: 16:00:46 Reading Location: [address] Ultrasound Reading Room BODY FLUID CELL COUNT WITH [id number] 15:52:00 Test Item Value Reference Range Comments APPEARANCE FLUID (BEAKER) (test koje=950) Clear Clear COLOR FLUID (BEAKER) (test cfwi=863) Yellow Colorless, Straw RBC FLUID (BEAKER) (test oabc=756) 10 /cu mm <=1 ADJUSTED WBC FLUID (BEAKER) (test eodc=3830) 80 /cu mm <=5 LINING CELLS (BEAKER) (test lcsx=1685) 0 /cu mm <=1 NEUTROPHILS FLUID (BEAKER) (test uocn=0285) 5 % LYMPHS FLUID (BEAKER) (test zsyv=338) 35 % MONO/MACROPHAGE FLUID (BEAKER) (test wklm=141) 59 % EOSINOPHILS FLUID (BEAKER) (test dfoc=591) 1 % BASO FLUID (BEAKER) (test xvrd=646) 0 % CONTAINER BODY FLUID (BEAKER) (test itkz=9227) EDTA Tube BASIC METABOLIC [id number] 07:28:00 Test Item Value Reference Range Comments SODIUM (BEAKER) (test 134 meq/L 136-145 fqig=969) POTASSIUM (BEAKER) (test 5.0 meq/L 3.5-5.1 jpvy=064) CHLORIDE (BEAKER) (test 107 meq/L 98-107 hzsb=589) CO2 (BEAKER) (test 22 meq/L 22-29 mztc=714) BLOOD UREA NITROGEN 46 mg/dL 7-21 (BEAKER) (test iugq=387) CREATININE (BEAKER) (test 1.61 mg/dL 0.57-1.25 srzw=221) GLUCOSE RANDOM (BEAKER) 220 mg/dL 70-105 (test iysv=899) CALCIUM (BEAKER) (test 9.0 mg/dL 8.4-10.2 puus=150) EGFR (BEAKER) (test 33 mL/min/1.73 sq m ESTIMATED GFR IS NOT ifvz=7703) ACCURATE CREATININE CLEARANCE IN PREDICTING GLOMERULAR FILTRATION RATE. ESTIMATED GFR IS NOT APPLICABLE FOR DIALYSIS PATIENTS. HEPATIC FUNCTION [id number] 07:28:00 Test Item Value Reference Range Comments TOTAL PROTEIN (BEAKER) (test kmyn=870) 5.9 gm/dL 6.0-8.3 ALBUMIN (BEAKER) (test kmzr=1312) 3.0 g/dL 3.5-5.0 BILIRUBIN TOTAL (BEAKER) (test bhcn=041) 0.6 mg/dL 0.2-1.2 BILIRUBIN DIRECT (BEAKER) (test fyeq=368) 0.3 mg/dL 0.1-0.5 ALKALINE PHOSPHATASE (BEAKER) (test fyhr=707) 154 U/L 40-150 AST (SGOT) (BEAKER) (test bpet=680) 22 U/L 5-34 ALT (SGPT) (BEAKER) (test bqnh=381) 12 U/L 6-55 [id number] 07:27:00 Test Item Value Reference Range Comments MAGNESIUM (BEAKER) (test sqzd=659) 2.2 mg/dL 1.6-2.6 CBC W/PLT COUNT & AUTO [id number] 07:06:00 Test Item Value Reference Range Comments WHITE BLOOD CELL COUNT (BEAKER) (test fagv=162) 6.2 K/ L 3.5-10.5 RED BLOOD CELL COUNT (BEAKER) (test buxq=501) 3.62 M/ L 3.93-5.22 HEMOGLOBIN (BEAKER) (test wjhd=745) 9.8 GM/DL 11.2-15.7 HEMATOCRIT (BEAKER) (test lzke=915) 31.4 % 34.1-44.9 MEAN CORPUSCULAR VOLUME (BEAKER) (test ziom=410) 86.7 fL 79.4-94.8 MEAN CORPUSCULAR HEMOGLOBIN (BEAKER) (test 27.1 pg 25.6-32.2 cnmj=536) MEAN CORPUSCULAR HEMOGLOBIN CONC (BEAKER) (test 31.2 GM/DL 32.2-35.5 hpoc=459) RED CELL DISTRIBUTION WIDTH (BEAKER) (test 14.5 % 11.7-14.4 ipxv=579) PLATELET COUNT (BEAKER) (test ofkh=718) 198 K/CU MM 150-450 MEAN PLATELET VOLUME (BEAKER) (test hsoz=945) 9.8 fL 9.4-12.3 NUCLEATED RED BLOOD CELLS (BEAKER) (test 0 /100 WBC 0-0 bsvo=890) NEUTROPHILS RELATIVE PERCENT (BEAKER) (test 64 % lgod=489) LYMPHOCYTES RELATIVE PERCENT (BEAKER) (test 22 % ttqx=532) MONOCYTES RELATIVE PERCENT (BEAKER) (test 9 % oolw=175) EOSINOPHILS RELATIVE PERCENT (BEAKER) (test 5 % cdgo=093) BASOPHILS RELATIVE PERCENT (BEAKER) (test 1 % avev=100) NEUTROPHILS ABSOLUTE COUNT (BEAKER) (test 3.93 K/ L 1.56-6.13 mcjd=849) LYMPHOCYTES ABSOLUTE COUNT (BEAKER) (test 1.35 K/ L 1.18-3.74 mfkf=643) MONOCYTES ABSOLUTE COUNT (BEAKER) (test 0.53 K/ L 0.24-0.36 vcen=209) EOSINOPHILS ABSOLUTE COUNT (BEAKER) (test 0.28 K/ L 0.04-0.36 nxcy=560) BASOPHILS ABSOLUTE COUNT (BEAKER) (test 0.05 K/ L 0.01-0.08 bszw=656) IMMATURE GRANULOCYTES-RELATIVE PERCENT (BEAKER) 1 % 0-1 (test dybv=4004) [id number] 06:49:00 Test Item Value Reference Range Comments PROTIME (BEAKER) (test nmse=987) 13.4 seconds 11.7-14.7 INR (BEAKER) (test elko=008) 1.0 <=5.9 PARTIAL THROMBOPLASTIN TIME (BEAKER) (test 30.9 seconds 22.5-36.0 vfjr=713) RECOMMENDED COUMADIN/WARFARIN INR THERAPY RANGESSTANDARD DOSE: 2.0 - 3.0 Includes: PROPHYLAXIS forvenous thrombosis, systemic embolization; TREATMENT for venous thrombosis and/or pulmonary embolus.HIGH RISK: Target INR is 2.5-3.5 for patients with mechanical heart valves.URINALYSIS W/ REFLEX URINE [id number] 05:32:00 Test Item Value Reference Range Comments COLOR (BEAKER) (test hssb=288) Yellow CLARITY (BEAKER) (test fpfh=382) Hazy SPECIFIC GRAVITY UA (BEAKER) (test tlxn=552) 1.021 1.001-1.035 PH UA (BEAKER) (test nyhk=953) 5.5 5.0-8.0 PROTEIN UA (BEAKER) (test jtpz=478) 30 mg/dL Negative GLUCOSE UA (BEAKER) (test peja=769) Negative Negative KETONES UA (BEAKER) (test dfhx=487) Negative Negative BILIRUBIN UA (BEAKER) (test mfgl=338) Negative Negative BLOOD UA (BEAKER) (test ovlw=628) Negative Negative NITRITE UA (BEAKER) (test atbj=761) Negative Negative LEUKOCYTE ESTERASE UA (BEAKER) (test tuuu=161) Large Negative UROBILINOGEN UA (BEAKER) (test luqo=397) 2.0 mg/dL 0.2-1.0 RBC UA (BEAKER) (test jpug=566) 7 /HPF WBC UA (BEAKER) (test pvil=413) 7 /HPF MUCUS (BEAKER) (test jxtt=7403) Rare SQUAMOUS EPITHELIAL (BEAKER) (test vrua=560) 6 /HPF HYALINE CASTS (BEAKER) (test dbrr=547) 40 /LPF SOURCE(BEAKER) (test jbrl=4170) POCT-GLUCOSE [id number] 05:00:00 Test Item Value Reference Range Comments POC-GLUCOSE METER (BEAKER) 227 mg/dL 70-[address] [facility] [address] [facility] (test kdkv=9928) [facility] [address] ALPHA FETOPROTEIN (AFP), TUMOR [id number] 15:55:00 Test Item Value Reference Range Comments ALPHA-FETOPROTEIN (BEAKER) (test edes=9128) 3.4 ng/mL <10.0 BASIC METABOLIC [id number] 15:40:00 Test Item Value Reference Range Comments SODIUM (BEAKER) (test 133 meq/L 136-145 lxqj=324) POTASSIUM (BEAKER) (test 4.8 meq/L 3.5-5.1 dcyu=400) CHLORIDE (BEAKER) (test 101 meq/L 98-107 snef=352) CO2 (BEAKER) (test 23 meq/L 22-29 nnna=072) BLOOD UREA NITROGEN 37 mg/dL 7-21 (BEAKER) (test xnjf=990) CREATININE (BEAKER) (test 2.17 mg/dL 0.57-1.25 obor=816) GLUCOSE RANDOM (BEAKER) 191 mg/dL 70-105 (test jjor=947) CALCIUM (BEAKER) (test 9.2 mg/dL 8.4-10.2 kqjt=757) EGFR (BEAKER) (test 23 mL/min/1.73 sq m ESTIMATED GFR IS NOT zifq=8228) ACCURATE CREATININE CLEARANCE IN PREDICTING GLOMERULAR FILTRATION RATE. ESTIMATED GFR IS NOT APPLICABLE FOR DIALYSIS PATIENTS. HEPATIC FUNCTION [id number] 15:38:00 Test Item Value Reference Range Comments TOTAL PROTEIN (BEAKER) (test kktp=501) 6.9 gm/dL 6.0-8.3 ALBUMIN (BEAKER) (test iaao=7948) 3.7 g/dL 3.5-5.0 BILIRUBIN TOTAL (BEAKER) (test fhas=517) 0.8 mg/dL 0.2-1.2 BILIRUBIN DIRECT (BEAKER) (test gvwv=242) 0.3 mg/dL 0.1-0.5 ALKALINE PHOSPHATASE (BEAKER) (test lyvp=795) 95 U/L 40-150 AST (SGOT) (BEAKER) (test oaog=482) 24 U/L 5-34 ALT (SGPT) (BEAKER) (test trxl=448) 14 U/L 6-55 PROTHROMBIN [id number] 15:29:00 Test Item Value Reference Range Comments PROTIME (BEAKER) (test ghlc=595) 12.8 seconds 11.7-14.7 INR (BEAKER) (test fahc=327) 1.0 <=5.9 RECOMMENDED COUMADIN/WARFARIN INR THERAPY RANGESSTANDARD DOSE: 2.0 - 3.0 Includes: PROPHYLAXIS forvenous thrombosis, systemic embolization; TREATMENT for venous thrombosis and/or pulmonary embolus.HIGH RISK: Target INR is 2.5-3.5 for patients with mechanical heart valves.CBC W/PLT COUNT & AUTO [id number] 15:17:00 Test Item Value Reference Range Comments WHITE BLOOD CELL COUNT (BEAKER) (test mhjv=602) 7.8 K/ L 3.5-10.5 RED BLOOD CELL COUNT (BEAKER) (test pxtx=493) 4.49 M/ L 3.93-5.22 HEMOGLOBIN (BEAKER) (test cvpa=684) 12.4 GM/DL 11.2-15.7 HEMATOCRIT (BEAKER) (test rurg=553) 39.1 % 34.1-44.9 MEAN CORPUSCULAR VOLUME (BEAKER) (test nzcb=883) 87.1 fL 79.4-94.8 MEAN CORPUSCULAR HEMOGLOBIN (BEAKER) (test 27.6 pg 25.6-32.2 wgdz=966) MEAN CORPUSCULAR HEMOGLOBIN CONC (BEAKER) (test 31.7 GM/DL 32.2-35.5 wemn=507) RED CELL DISTRIBUTION WIDTH (BEAKER) (test 14.0 % 11.7-14.4 kedx=614) PLATELET COUNT (BEAKER) (test pqho=551) 196 K/CU MM 150-450 MEAN PLATELET VOLUME (BEAKER) (test qcjg=366) 9.9 fL 9.4-12.3 NUCLEATED RED BLOOD CELLS (BEAKER) (test 0 /100 WBC 0-0 afjc=001) NEUTROPHILS RELATIVE PERCENT (BEAKER) (test 72 % bsbe=266) LYMPHOCYTES RELATIVE PERCENT (BEAKER) (test 18 % gqpn=294) MONOCYTES RELATIVE PERCENT (BEAKER) (test 6 % cqzj=620) EOSINOPHILS RELATIVE PERCENT (BEAKER) (test 4 % jckz=809) BASOPHILS RELATIVE PERCENT (BEAKER) (test 1 % emoa=504) NEUTROPHILS ABSOLUTE COUNT (BEAKER) (test 5.62 K/ L 1.56-6.13 mekq=891) LYMPHOCYTES ABSOLUTE COUNT (BEAKER) (test 1.37 K/ L 1.18-3.74 shqr=215) MONOCYTES ABSOLUTE COUNT (BEAKER) (test 0.43 K/ L 0.24-0.36 mwux=985) EOSINOPHILS ABSOLUTE COUNT (BEAKER) (test 0.28 K/ L 0.04-0.36 aivs=722) BASOPHILS ABSOLUTE COUNT (BEAKER) (test 0.07 K/ L 0.01-0.08 ibka=376) IMMATURE GRANULOCYTES-RELATIVE PERCENT (BEAKER) 0 % 0-1 (test igmn=7111) ANTI-MITOCHONDRIAL AB, REFLEX TO [id number] 08:36:00 Test Item Value Reference Range Comments SCAN RESULT (test scfg=[id number]) OSMOLALITY, [id number] 10:30:00 Test Item Value Reference Range Comments OSMOLALITY, SERUM (BEAKER) (test lgao=004) 301 mOsm/kg 275-295 POCT-GLUCOSE [id number] 08:26:00 Test Item Value Reference Range Comments POC-GLUCOSE METER (BEAKER) 243 mg/dL 70-[address] [facility] [address] [facility] (test xntq=2772) [facility] [address] COMPREHENSIVE METABOLIC [id number] 08:05:00 Test Item Value Reference Range Comments TOTAL PROTEIN (BEAKER) 5.5 gm/dL 6.0-8.3 (test jvpi=179) ALBUMIN (BEAKER) (test 3.2 g/dL 3.5-5.0 lirz=2267) ALKALINE PHOSPHATASE 75 U/L 40-150 (BEAKER) (test ldlo=682) BILIRUBIN TOTAL (BEAKER) 0.9 mg/dL 0.2-1.2 (test xhuv=745) SODIUM (BEAKER) (test 132 meq/L 136-145 nrct=467) POTASSIUM (BEAKER) (test 4.3 meq/L 3.5-5.1 vhle=012) CHLORIDE (BEAKER) (test 101 meq/L 98-107 scql=340) CO2 (BEAKER) (test 25 meq/L 22-29 qqaa=089) BLOOD UREA NITROGEN 45 mg/dL 7-21 (BEAKER) (test bfhq=589) CREATININE (BEAKER) (test 1.89 mg/dL 0.57-1.25 wvgx=554) GLUCOSE RANDOM (BEAKER) 241 mg/dL 70-105 (test ldcy=000) CALCIUM (BEAKER) (test 8.6 mg/dL 8.4-10.2 zwqs=389) AST (SGOT) (BEAKER) (test 19 U/L 5-34 hiih=748) ALT (SGPT) (BEAKER) (test 10 U/L 6-55 stye=276) EGFR (BEAKER) (test 27 mL/min/1.73 sq m ESTIMATED GFR IS NOT vghj=2989) ACCURATE CREATININE CLEARANCE IN PREDICTING GLOMERULAR FILTRATION RATE. ESTIMATED GFR IS NOT APPLICABLE FOR DIALYSIS PATIENTS. [id number] 08:02:00 Test Item Value Reference Range Comments PHOSPHORUS (BEAKER) (test hgyg=453) 3.6 mg/dL 2.3-4.7 [id number] 08:02:00 Test Item Value Reference Range Comments MAGNESIUM (BEAKER) (test adwg=302) 2.0 mg/dL 1.6-2.6 CBC W/PLT COUNT & AUTO [id number] 05:40:00 Test Item Value Reference Range Comments WHITE BLOOD CELL COUNT (BEAKER) (test tjre=075) 5.7 K/ L 3.5-10.5 RED BLOOD CELL COUNT (BEAKER) (test geyh=013) 3.76 M/ L 3.93-5.22 HEMOGLOBIN (BEAKER) (test nocl=782) 10.6 GM/DL 11.2-15.7 HEMATOCRIT (BEAKER) (test prma=424) 32.9 % 34.1-44.9 MEAN CORPUSCULAR VOLUME (BEAKER) (test kbgw=538) 87.5 fL 79.4-94.8 MEAN CORPUSCULAR HEMOGLOBIN (BEAKER) (test 28.2 pg 25.6-32.2 cbcm=748) MEAN CORPUSCULAR HEMOGLOBIN CONC (BEAKER) (test 32.2 GM/DL 32.2-35.5 xche=760) RED CELL DISTRIBUTION WIDTH (BEAKER) (test 14.2 % 11.7-14.4 tuhk=654) PLATELET COUNT (BEAKER) (test pwhj=784) 142 K/CU MM 150-450 MEAN PLATELET VOLUME (BEAKER) (test xvsi=491) 9.8 fL 9.4-12.3 NUCLEATED RED BLOOD CELLS (BEAKER) (test 0 /100 WBC 0-0 ifry=578) NEUTROPHILS RELATIVE PERCENT (BEAKER) (test 70 % wica=014) LYMPHOCYTES RELATIVE PERCENT (BEAKER) (test 19 % fnpo=960) MONOCYTES RELATIVE PERCENT (BEAKER) (test 7 % eovc=142) EOSINOPHILS RELATIVE PERCENT (BEAKER) (test 3 % eiqo=994) BASOPHILS RELATIVE PERCENT (BEAKER) (test 1 % fsxs=337) NEUTROPHILS ABSOLUTE COUNT (BEAKER) (test 3.99 K/ L 1.56-6.13 neal=299) LYMPHOCYTES ABSOLUTE COUNT (BEAKER) (test 1.05 K/ L 1.18-3.74 chts=099) MONOCYTES ABSOLUTE COUNT (BEAKER) (test 0.40 K/ L 0.24-0.36 smri=064) EOSINOPHILS ABSOLUTE COUNT (BEAKER) (test 0.16 K/ L 0.04-0.36 vjqe=527) BASOPHILS ABSOLUTE COUNT (BEAKER) (test 0.04 K/ L 0.01-0.08 nweu=568) IMMATURE GRANULOCYTES-RELATIVE PERCENT (BEAKER) 0 % 0-1 (test klfg=3756) CALCIUM, [id number] 05:17:00 Test Item Value Reference Range Comments CALCIUM IONIZED (BEAKER) (test vjyf=161) 1.06 mmol/L 1.12-1.27 PH, BLOOD (BEAKER) (test bxgr=6475) 7.41 U/S, RENAL, [id number] 03:59:00Reason for exam:->HEMALATHA/CKDShould this be performed at [...] visualized. Small volume intra-abdominal ascites. [facility] Verified Date/Time: 11/24/2018 03:59:04 Reading Location: [address] Transitional Reading Room TROPOMALLORY [id number] 23:19:00 Test Item Value Reference Range Comments TROPONIN I (BEAKER) (test jkgm=597) < ng/mL 0.00-0.03 Troponin I (TnI) levels [...] acidosis, acute neurological disease, and persistent tachyarrhythmia.POCT-GLUCOSE [id number] 21:12:00 Test Item Value Reference Range Comments POC-GLUCOSE METER (BEAKER) 277 mg/dL 70-110 TESTED AT [address] (test empk=5829) [place] [address] PROTEIN, RANDOM [id number] 20:11:00 Test Item Value Reference Range Comments PROTEIN, URINE (BEAKER) (test ykxx=3640) 10 mg/dL 0-14 SODIUM, RANDOM [id number] 20:05:00 Test Item Value Reference Range Comments SODIUM URINE (BEAKER) (test wbzh=661) < meq/L Reference Range: No NormalsPOCT-GLUCOSE [id number] 17:28:00 Test Item Value Reference Range Comments POC-GLUCOSE METER (BEAKER) 291 mg/dL 70-110 TESTED AT [address] (test losi=4325) [place] [address] POCT-GLUCOSE [id number] 14:02:00 Test Item Value Reference Range Comments POC-GLUCOSE METER (BEAKER) 148 mg/dL 70-110 TESTED AT [address] (test kque=6088) [place] [address] URINALYSIS W/ [id number] 13:32:00 Test Item Value Reference Range Comments COLOR (BEAKER) (test nozn=399) Yellow CLARITY (BEAKER) (test boky=126) Clear SPECIFIC GRAVITY UA (BEAKER) (test 1.015 1.001-1.035 yalt=703) PH UA (BEAKER) (test kuqb=171) 5.0 5.0-8.0 PROTEIN UA (BEAKER) (test dnnj=410) Negative Negative GLUCOSE UA (BEAKER) (test rchx=406) Negative Negative KETONES UA (BEAKER) (test ldwq=905) Negative Negative BILIRUBIN UA (BEAKER) (test snzs=283) Negative Negative BLOOD UA (BEAKER) (test stud=571) Negative Negative NITRITE UA (BEAKER) (test kebt=270) Negative Negative LEUKOCYTE ESTERASE UA (BEAKER) (test Negative Negative znay=641) UROBILINOGEN UA (BEAKER) (test fjsy=578) 0.2 mg/dL 0.2-1.0 RBC UA (BEAKER) (test iptz=823) < /HPF WBC UA (BEAKER) (test tjmg=127) 2 /HPF BACTERIA (BEAKER) (test hzgj=225) Occasional SQUAMOUS EPITHELIAL (BEAKER) (test 19 /HPF oohe=395) HYALINE CASTS (BEAKER) (test giuh=954) 5 /LPF AMORPHOUS CRYSTALS (BEAKER) (test Occasional zhaw=5801) SOURCE(BEAKER) (test glnm=4519) Urine, Clean Catch U/S, ABDOMINAL, [id number] 13:29:00Abdomen limited area? Add comment if clarification [...] [place]es Verified Date/Time: 11/23/2018 13:29:13 Reading Location: [place] [id number] Transitional Reading Room U/S, [id number] 13:01:00Reason for exam:->Therapeutic paracentesisFINAL REPORT Paracentesis dated 11/23/2018 Procedure: Ultrasound-guided paracentesis. Preprocedure diagnosis: Ascites Postprocedure diagnosis: Ascites Conscious sedation: None. Radiologist: Giovanni Haas M.D. Stripper Soft Plastic: None Anesthesia: 1% Xylocaine mixed with sodium bicarbonate local anesthesia. Technique: After obtaining informed consent, ultrasound-guided paracentesis was performed under usual sterile technique. Using a 5 kyrgyz drainage catheter , puncture was made in the right lower quadrant abdomen. Approximately 16,200 cc of serous fluid was removed. Patient tolerated the procedure well without complication. Complication: None Graft/Implant: None Estimated Blood Loss: None Impression: Ultrasound-guided paracentesis. Signed: Giovanni Haas Verified Date/Time: 11/23/2018 13:01:25 Reading Location: [facility] [id number] Ortho Consult Reading Room Electronically signedby: GIOVANNI HAAS M.D. on 2018 01:01 PMCBC W/PLT COUNT & AUTO [id number] 08:55:00 Test Item Value Reference Range Comments WHITE BLOOD CELL COUNT (BEAKER) (test hvcm=498) 5.7 K/ L 3.5-10.5 RED BLOOD CELL COUNT (BEAKER) (test bsdd=591) 3.72 M/ L 3.93-5.22 HEMOGLOBIN (BEAKER) (test zcic=580) 10.5 GM/DL 11.2-15.7 HEMATOCRIT (BEAKER) (test fsfx=683) 32.5 % 34.1-44.9 MEAN CORPUSCULAR VOLUME (BEAKER) (test dapz=008) 87.4 fL 79.4-94.8 MEAN CORPUSCULAR HEMOGLOBIN (BEAKER) (test 28.2 pg 25.6-32.2 hrfb=230) MEAN CORPUSCULAR HEMOGLOBIN CONC (BEAKER) (test 32.3 GM/DL 32.2-35.5 vjtz=343) RED CELL DISTRIBUTION WIDTH (BEAKER) (test 14.5 % 11.7-14.4 kpmk=514) PLATELET COUNT (BEAKER) (test ddad=967) 148 K/CU MM 150-450 MEAN PLATELET VOLUME (BEAKER) (test gyvw=152) 9.4 fL 9.4-12.3 NUCLEATED RED BLOOD CELLS (BEAKER) (test 0 /100 WBC 0-0 zglc=148) NEUTROPHILS RELATIVE PERCENT (BEAKER) (test 63 % bzqr=166) LYMPHOCYTES RELATIVE PERCENT (BEAKER) (test 23 % gnxw=956) MONOCYTES RELATIVE PERCENT (BEAKER) (test 8 % zwfo=478) EOSINOPHILS RELATIVE PERCENT (BEAKER) (test 5 % aesz=966) BASOPHILS RELATIVE PERCENT (BEAKER) (test 1 % btmw=004) NEUTROPHILS ABSOLUTE COUNT (BEAKER) (test 3.61 K/ L 1.56-6.13 qxsi=504) LYMPHOCYTES ABSOLUTE COUNT (BEAKER) (test 1.29 K/ L 1.18-3.74 pmvd=065) MONOCYTES ABSOLUTE COUNT (BEAKER) (test 0.47 K/ L 0.24-0.36 mnvs=952) EOSINOPHILS ABSOLUTE COUNT (BEAKER) (test 0.28 K/ L 0.04-0.36 iwex=582) BASOPHILS ABSOLUTE COUNT (BEAKER) (test 0.05 K/ L 0.01-0.08 trkq=029) IMMATURE GRANULOCYTES-RELATIVE PERCENT (BEAKER) 0 % 0-1 (test escg=1506) POCT-GLUCOSE [id number] 07:43:00 Test Item Value Reference Range Comments POC-GLUCOSE METER (BEAKER) 196 mg/dL 70-[address] [facility] [address] [facility] (test ingt=1860) [facility] [address] [id number] 06:53:00 Test Item Value Reference Range Comments FERRITIN (BEAKER) (test yidm=151) 52 ng/mL 5-275 HEPATITIS B [id number] 06:21:00 Test Item Value Reference Range Comments HEPATITIS B CORE TOTAL ANTIBODY (BEAKER) (test Nonreactive Nonreactive fchb=107) HEPATITIS B SURFACE ANTIBODY (BEAKER) (test < mIU/mL <8.0 ouhf=455) HEPATITIS B SURFACE ANTIGEN (2) (BEAKER) (test Nonreactive Nonreactive zjwu=7338) HEPATITIS C [id number] 06:20:00 Test Item Value Reference Range Comments HEPATITIS C ANTIBODY (BEAKER) (test yghj=709) Nonreactive Nonreactive HEPATITIS A [id number] 06:20:00 Test Item Value Reference Range Comments HEPATITIS A IGM ANTIBODY (BEAKER) (test Nonreactive Nonreactive mdna=880) HEPATITIS A IGG ANTIBODY (BEAKER) (test Nonreactive Nonreactive qsre=2045) ALPHA FETOPROTEIN (AFP), TUMOR [id number] 06:14:00 Test Item Value Reference Range Comments ALPHA-FETOPROTEIN (BEAKER) (test vfcw=4874) 2.1 ng/mL <10.0 COMPREHENSIVE METABOLIC [id number] 06:01:00 Test Item Value Reference Range Comments TOTAL PROTEIN (BEAKER) 5.9 gm/dL 6.0-8.3 (test khgc=229) ALBUMIN (BEAKER) (test 2.9 g/dL 3.5-5.0 krvu=5799) ALKALINE PHOSPHATASE 96 U/L 40-150 (BEAKER) (test hxwr=736) BILIRUBIN TOTAL (BEAKER) 0.5 mg/dL 0.2-1.2 (test mjue=308) SODIUM (BEAKER) (test 132 meq/L 136-145 ofrg=351) POTASSIUM (BEAKER) (test 4.3 meq/L 3.5-5.1 sfjp=961) CHLORIDE (BEAKER) (test 100 meq/L 98-107 mocv=908) CO2 (BEAKER) (test 26 meq/L 22-29 cqbb=453) BLOOD UREA NITROGEN 50 mg/dL 7-21 (BEAKER) (test ttds=683) CREATININE (BEAKER) (test 2.27 mg/dL 0.57-1.25 ayqt=332) GLUCOSE RANDOM (BEAKER) 219 mg/dL 70-105 (test jqxc=743) CALCIUM (BEAKER) (test 8.8 mg/dL 8.4-10.2 vxdz=601) AST (SGOT) (BEAKER) (test 22 U/L 5-34 bfjw=010) ALT (SGPT) (BEAKER) (test 15 U/L 6-55 eprb=443) EGFR (BEAKER) (test 22 mL/min/1.73 sq m ESTIMATED GFR IS NOT okro=6513) ACCURATE CREATININE CLEARANCE IN PREDICTING GLOMERULAR FILTRATION RATE. ESTIMATED GFR IS NOT APPLICABLE FOR DIALYSIS PATIENTS. IRON, TIBC, % SAT. (WITHOUT FERRITIN)2018-11-23 05:55:00 Test Item Value Reference Range Comments IRON (BEAKER) (test ygze=665) 46.0 ug/dL 40.0-160.0 TOTAL IRON BINDING CAPACITY (BEAKER) (test 269 ug/dL 250-450 hvco=721) IRON % SATURATION (2) (BEAKER) (test oyno=1057) 17 % 20-55 [id number] 05:54:00 Test Item Value Reference Range Comments ALPHA-1 ANTITRYPSIN (BEAKER) (test dycb=539) 202.70 mg/dL 90.00-200.00 COMPREHENSIVE METABOLIC [id number] 00:16:00 Test Item Value Reference Range Comments TOTAL PROTEIN (BEAKER) 6.8 gm/dL 6.0-8.3 (test bqgs=690) ALBUMIN (BEAKER) (test 3.3 g/dL 3.5-5.0 njbq=3796) ALKALINE PHOSPHATASE 114 U/L 40-150 (BEAKER) (test mrwx=413) BILIRUBIN TOTAL (BEAKER) 0.6 mg/dL 0.2-1.2 (test okxz=855) SODIUM (BEAKER) (test 130 meq/L 136-145 vfad=344) POTASSIUM (BEAKER) (test 4.4 meq/L 3.5-5.1 hqlp=492) CHLORIDE (BEAKER) (test 99 meq/L 98-107 ryqu=923) CO2 (BEAKER) (test 22 meq/L 22-29 dzpp=708) BLOOD UREA NITROGEN 46 mg/dL 7-21 (BEAKER) (test wbww=031) CREATININE (BEAKER) (test 2.40 mg/dL 0.57-1.25 lmng=107) GLUCOSE RANDOM (BEAKER) 153 mg/dL 70-105 (test wboh=768) CALCIUM (BEAKER) (test 9.1 mg/dL 8.4-10.2 fkrp=233) AST (SGOT) (BEAKER) (test 25 U/L 5-34 wqed=966) ALT (SGPT) (BEAKER) (test 17 U/L 6-55 sbrr=416) EGFR (BEAKER) (test 21 mL/min/1.73 sq m ESTIMATED GFR IS NOT lvdo=1311) ACCURATE CREATININE CLEARANCE IN PREDICTING GLOMERULAR FILTRATION RATE. ESTIMATED GFR IS NOT APPLICABLE FOR DIALYSIS PATIENTS. [id number] 23:52:00 Test Item Value Reference Range Comments PROTIME (BEAKER) (test iuvm=862) 13.3 seconds 11.7-14.7 INR (BEAKER) (test ixjy=346) 1.0 <=5.9 PARTIAL THROMBOPLASTIN TIME (BEAKER) (test 26.9 seconds 22.5-36.0 larx=224) RECOMMENDED COUMADIN/WARFARIN INR THERAPY RANGESSTANDARD DOSE: 2.0 - 3.0 Includes: PROPHYLAXIS forvenous thrombosis, systemic embolization; TREATMENT for venous thrombosis and/or pulmonary embolus.HIGH RISK: Target INR is 2.5-3.5 for patients with mechanical heart valves.POCT-GLUCOSE [id number] 21:25:00 Test Item Value Reference Range Comments POC-GLUCOSE METER (BEAKER) 178 mg/dL 70-[address] [facility] [address] [facility] (test izog=8731) [facility] [address]
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
[2020-01-05 04:36] LABS: Absolute Lymphocytes (CBC) 1.7 K/uL (0.7-4.9); Basophils % 0.9 % (0-1.3); Hematocrit 30.5 % (36.0-45.0); Lymphocytes % 25.7 % (15.3-44.8); MPV 7.2 fL (7.6-11.3); RBC Red Blood Cell Count 3.85 M/uL (3.86-4.86)
[2020-01-05] MEDS ORDERED: ONDANSETRON 4 MG/2 ML VIAL ONE (04:52)
[2020-01-05 04:54] LABS: Albumin 2.1 g/dL (3.4-5.0); Bilirubin Direct 0.5 mg/dL (0-0.2); Bilirubin Total 1.3 mg/dL (0.2-1.0); Potassium 3.4 mmol/L (3.5-5.1); Protein, Total 6.5 g/dL (6.4-8.2); Troponin (Emerg Dept Use Only) 0.05 ng/mL (0.0-0.045)
--- NOTE | 2020-01-05 05:38 | ER ---
Nurse's Notes [facility] Jaz Name: Dee Maciel Age: 60 yrs Sex: Female : 1960 Arrival Date: 01/05/2020 Time: 02:41 Bed 14 Private MD: Diagnosis: Ascites;Unspecified cirrhosis of liver;Dyspnea, unspecified;Hypoxemia;Edema, unspecified Presentation: 01/04 03:01 Chief complaint: Patient states: C/O shortness of breath and that started wh yesterday. Now [place] back pain and vomiting that started an hour ago. Coronavirus screen: The patient has NOT traveled to [place] in the past 14 days. Ebola Screen: Patient negative for fever greater than or equal to 101.5 degrees Fahrenheit, and additional compatible Ebola Virus Disease symptoms Patient denies exposure to infectious person. Initial Sepsis Screen: Does the patient meet any 2 criteria? No. Patient's initial sepsis screen is negative. Does the patient have a suspected source of infection? No. Patient's initial sepsis screen is negative. Risk Assessment: Do you want to hurt yourself or someone else? Patient reports no desire to harm self or others. 03:01 Method Of Arrival: Wheelchair 03:01 Acuity: ASAF 3 03:06 Onset of symptoms was January 05, 2020. Historical: - Allergies: 03:06 No Known Allergies; wh - PMHx: 03:06 Anxiety; Depression; Diabetes - NIDDM; Hypothyroidism; kidney problems; WYNN liver; - PSHx: 03:06 ; wh - Immunization history:: Adult Immunizations not up to date. - Social history:: Smoking status: Patient/guardian denies using. - Family history:: not pertinent. - Hospitalizations: : No recent hospitalization is reported. Screenin:06 Abuse screen: Denies threats or abuse. Denies injuries from another. Nutritional screening: No deficits noted. Tuberculosis screening: No symptoms or risk factors identified. Fall Risk None identified. Assessment: 03:10 General: Appears in no apparent distress. Behavior is calm, cooperative, appropriate wh for age. Pain: Complains of pain in back Pain does not radiate. Pain currently is 6 out of 10 on a pain scale. Quality of pain is described as aching, Pain began 1 hour ago. Neuro: Level of Consciousness is awake, alert, obeys commands, Oriented to person, place, time, situation, Appropriate for age. Cardiovascular: Heart tones S1 S2. Cardiovascular: Edema is 3+ to left ankle, left foot, right ankle and right foot. Respiratory: Reports shortness of breath Airway is patent Respiratory effort is even, labored, Respiratory pattern is regular, symmetrical, Breath sounds are diminished bilaterally. GI: Abdomen is round non-distended, noted to have ascites, Abd is rigid. : No signs and/or symptoms were reported regarding the genitourinary system. EENT: No signs and/or symptoms were reported regarding the EENT system. Derm: Skin is intact, is healthy with good turgor, Skin is pink, warm \T\ dry. normal. Musculoskeletal: Circulation, motion, and sensation intact. Vital Signs: 03:01 BP 143 / 64; Pulse 74; Resp 20; Temp 97.6; Pulse Ox 97% 3 lpm ; Weight 117.93 kg; Height 5 ft. 6 in. (167.64 cm); Pain 6/10; 07:03 BP 101 / 53; Pulse 76; Resp 18; Pulse Ox 94% on R/A; ph 08:00 BP 105 / 58; Pulse 76; Resp 18; Pulse Ox 95% on R/A; ph 03:01 Body Mass Index 41.96 (117.93 kg, 167.64 cm) ED Course: 02:41 Patient arrived in ED. jg7 02:43 Mingo Valentine MD is Attending Physician. rn 02:45 Madonna Barahona is Primary Nurse. 03:04 Triage completed. 03:07 Arm band placed on right wrist. 03:07 Patient has correct armband on for positive identification. Bed in low position. Call light in reach. Side rails up X 1. Pulse ox on. NIBP on. 03:13 XRAY CXR (1 view) In Process Unspecified. EDMS 04:10 Inserted saline lock: 22 gauge in left forearm, using aseptic technique. ds4 04:20 Inserted saline lock: 20 gauge in right wrist, using aseptic technique. Blood collected.rr5 04:20 First set of blood cultures drawn by me. rr5 05:36 Kole Mattson MD is Hospitalizing Provider. rn 08:10 No provider procedures requiring assistance completed. Patient admitted, IV remains in ph place. Administered Medications: 06:08 Drug: Lasix 40 mg Route: IVP; Site: right hand; jv1 07:07 Follow up: Response: No adverse reaction jv1 07:08 Follow up: Response: No adverse reaction ph Outcome: 05:37 Decision to Hospitalize by Provider. rn 09:03 Patient left the ED. ph Signatures: Dispatcher [employer] EDMS Mingo Valentine MD MD rn Swanson, Donovan ds4 Dorina De Paz RN RN [facility] Cinthya Butler RN RN jv1 Keyon Matos RN RN rr5 Lesley Fuentes jg7 Corrections: (The following items were deleted from the chart) 03:12 03:01 BP 143 / 64; Pulse 74bpm; Resp 18bpm; Pulse Ox 97% 3 lpm; Temp 97.6F; 117.93 kg; wh Height 5 ft. 6 in.; BMI: 41.9; Pain 6/10; wh
--- NOTE | 2020-01-05 05:38 | EDPHYS ---
Physician Documentation [facility] Name: Dee Maciel Age: 60 yrs Sex: Female : 1960 Arrival Date: 01/05/2020 Time: 02:41 Bed 14 Private MD: ED Physician Mingo Valentine HPI: 01/04 03:12 This 60 yrs old Female presents to ER via Wheelchair with complaints of Back rn Pain, Breathing Difficulty, Vomiting. 03:13 The patient has shortness of breath at rest, with light activity. rn 03:14 Onset: The symptoms/episode began/occurred yesterday. Duration: The symptoms are rn continuous. The patient's shortness of breath is aggravated by light activity, supine position, talking, walking. Severity of symptoms: At their worst the symptoms were moderate in the emergency department the symptoms are unchanged. The patient has experienced similar episodes in the past. Reports sob, feels like building up fluid again. Has been 2 weeks since last paracentesis. Reports breathing worse with movement and supine position. No abd pain. Reports mid back pain and single episode of vomiting. Reports has had this problem before. . Historical: - Allergies: 03:06 No Known Allergies; wh - PMHx: 03:06 Anxiety; Depression; Diabetes - NIDDM; Hypothyroidism; kidney problems; WYNN liver; wh - PSHx: 03:06 ; wh - Immunization history:: Adult Immunizations not up to date. - Social history:: Smoking status: Patient/guardian denies using. - Family history:: not pertinent. - Hospitalizations: : No recent hospitalization is reported. ROS: 03:14 Constitutional: Negative for fever, chills, and weight loss, Eyes: Negative for injury, rn pain, redness, and discharge, Neck: Negative for injury, pain, and swelling, Cardiovascular: Negative for chest pain, palpitations, and edema, Respiratory: Negative for wheezing, and pleuritic chest pain Abdomen/GI: Negative for abdominal pain, diarrhea, and constipation, Back: Negative for injury MS/Extremity: Negative for injury and deformity, Skin: Negative for injury, rash, and discoloration, Neuro: Negative for headache, weakness, numbness, tingling, and seizure. Exam: 03:14 Constitutional: This is a well developed, well nourished patient who is awake, alert, rn + mild respiratory distress Head/Face: Normocephalic, atraumatic. Cardiovascular: Regular rate and rhythm. No pulse deficits. Respiratory: + mild tachypnea, no retractions, diminished berath sounds bilateral bases Abdomen/GI: soft, non-tender, + fluid wave, no rebound Skin: Warm, dry MS/ Extremity: Pulses equal, no cyanosis. 2+ bilateral lower ext pitting edema Neuro: Awake and alert, GCS 15 Vital Signs: 03:01 BP 143 / 64; Pulse 74; Resp 20; Temp 97.6; Pulse Ox 97% 3 lpm ; Weight 117.93 kg; wh Height 5 ft. 6 in. (167.64 cm); Pain 6/10; 07:03 BP 101 / 53; Pulse 76; Resp 18; Pulse Ox 94% on R/A; ph 08:00 BP 105 / 58; Pulse 76; Resp 18; Pulse Ox 95% on R/A; ph 03:01 Body Mass Index 41.96 (117.93 kg, 167.64 cm) wh MDM: 02:43 Patient medically screened. rn 05:35 Differential diagnosis: volume overload, anasarca, CKD, pulmonary edema, pleural rn effusion. Data reviewed: vital signs, nurses notes, lab test result(s), radiologic studies, plain films, and as a result, I will admit patient. Counseling: I had a detailed discussion with the patient and/or guardian regarding: the historical points, exam findings, and any diagnostic results supporting the discharge/admit diagnosis, lab results, radiology results, the need for further work-up and treatment in the hospital. Response to treatment: the patient's symptoms have mildly improved after treatment, and as a result, I will admit patient. Admission orders: after a detailed discussion of the patient's condition and case, the admit orders are written by me. ED course: Pt with signs and symptoms of volume overload, ascites, pleural effusion, will admit to Dr. Mattson for further care, could benefit from diuresis and evaluation for possible paracentesis by either radiology or Rebeca Andrews who is wound care center consultant today.. 01/04 03:01 Order name: Blood Culture Adult (2) rn 01/04 03:01 Order name: BMP; Complete Time: 05:00 rn 01/04 03:01 Order name: CBC with Diff; Complete Time: 05:00 rn 01/04 03:01 Order name: Hepatic Function; Complete Time: 05:00 rn 01/04 03:01 Order name: Lipase; Complete Time: 05:00 rn 01/04 03:01 Order name: NT PRO-BNP; Complete Time: 05:00 rn 01/04 03:01 Order name: XRAY CXR (1 view) rn 01/04 03:01 Order name: Troponin (emerg Dept Use Only); Complete Time: 05:00 rn 01/04 03:01 Order name: EKG; Complete Time: 03:02 rn 01/04 06:35 Order name: CONS Pharmacy Consult EDMS 01/04 06:35 Order name: CONS Physician Consult EDMS 01/04 06:35 Order name: Full Liquid EDMS 01/04 06:36 Order name: Paracentesis Proc Guidance EDMS 01/04 03:01 Order name: IV Start; Complete Time: 04:06 rn 01/04 03:01 Order name: Cardiac monitoring; Complete Time: 04:05 rn 01/04 03:01 Order name: EKG - Nurse/Tech; Complete Time: 04:05 rn 01/04 03:01 Order name: Labs collected and sent; Complete Time: 04:05 rn 01/04 03:01 Order name: O2 Per Protocol; Complete Time: 04:06 rn 01/04 03:01 Order name: O2 Sat Monitoring; Complete Time: 04:06 rn 01/04 06:39 Order name: CONS Physician Consult EDMS Administered Medications: 06:08 Drug: Lasix 40 mg Route: IVP; Site: right hand; jv1 07:07 Follow up: Response: No adverse reaction jv1 07:08 Follow up: Response: No adverse reaction ph Disposition: 01/05/20 05:37 Hospitalization ordered by Kole Mattson for Inpatient Admission. Preliminary diagnosis are Ascites, Unspecified cirrhosis of liver, Dyspnea, unspecified, Hypoxemia, Edema, unspecified. - Bed requested for Telemetry/MedSurg (Inpatient). - Status is Inpatient Admission. ph - Condition is Stable. - Problem is chronic. - Symptoms have improved. Signatures: Dispatcher Med[facility] EDMD Neida Self RN RN mw Nieto, Roman, MD MD rn Hall, Patricia, RN RN ph Habalo, Winsy wh Vicente, Joyce, RN RN jv1 Corrections: (The following items were deleted from the chart) 05:39 05:37 Hospitalization Ordered by Kole Mattson MD for Inpatient Admission. Preliminary mw diagnosis is Ascites; Unspecified cirrhosis of liver; Dyspnea, unspecified; Hypoxemia; Edema, unspecified. Bed requested for Telemetry/MedSurg (Inpatient). Status is Inpatient Admission. Condition is Stable. Problem is chronic. Symptoms have improved. rn 09:03 05:39 01/05/2020 05:37 Hospitalization Ordered by Kole Mattson MD for Inpatient ph Admission. Preliminary diagnosis is Ascites; Unspecified cirrhosis of liver; Dyspnea, unspecified; Hypoxemia; Edema, unspecified. Bed requested for Telemetry/MedSurg (Inpatient). Status is Inpatient Admission. Condition is Stable. Problem is chronic. Symptoms have improved. mw
[2020-01-05] MEDS ORDERED: FUROSEMIDE 40 MG/4 ML VIAL ONE (05:46)
--- NOTE | 2020-01-05 05:51 | EKG ---
Test Date: 2020-01-05 Test Time: 03:23:10 Deckhand Clam Dredge: ELAINA MEASUREMENT RESULTS: Intervals: Rate: 74 AZ: 186 QRSD: 100 QT: 428 QTc: 475 [place]: P: -4 AZ: 186 QRS: 147 T: 64 INTERPRETIVE STATEMENTS: Normal sinus rhythm Rightward axis Abnormal ECG Compared to ECG 10/31/2019 19:18:24 no change Electronically Signed On 01-05-20 05:51:00 POULTRY CLEANER by Chung Rankin
[2020-01-05] MEDS ORDERED: MORPHINE 2 MG/ML SYR IV PRN (06:29)
[2020-01-05] MEDS ORDERED: ONDANSETRON 4 MG/2 ML VIAL IV PRN (06:29)
[2020-01-05] MEDS ORDERED: ALBUTEROL 2.5 MG/3 ML NEB SOL NEB PRN ×2 (06:29→17:00)
[2020-01-05] MEDS ORDERED: guaiFENesin 100 MG/5 ML UCUP PO PRN (06:32)
[2020-01-05] MEDS ORDERED: HYDRALAZINE HCL 20 MG/ML VIAL IV PRN (06:32)
--- NOTE | 2020-01-05 06:41 | P.HP ---
Certification for Inpatient With expected LOS: >2 Midnights Practitioner: I am a practitioner with admitting privileges, knowledge of patient current condition, hospital course, and medical plan of care. Services: Services provided to patient in accordance with Admission requirements found in Title 42 Section 412.3 of the Code of Federal Regulations Patient History Date of Service: 01/05/20 Reason for admission: Shortness of breath and body sweling History of Present Illness: Ms. Dee Maciel is a 59-year-old female with history of diabetes, hypertension,recurrent Troponin leak , Prior Pleural effusions, liver cirrhosis due to WYNN with recurrent ascites on q.2 weekly paracentesis, last was 3 weeks ago , was brought in by the spouse after she was becomign increasing SOB with worsneing body swelling . She admits to taking her dose of diuretics but did not come with her home medication list today . she is a very poor historian . she is unable to say if she is still on midodrine which she was started on last admission 3 months ago . She denies any chest pain but admit to cough with no sputum . She denies any recent fever or chills. Allergies No Known Allergies Allergy (Verified 12/21/19 08:27) Home medications list reviewed: No Home Medications: Gabapentin 200 mg PO BEDTIME 09/29/19 Insulin Aspart [Novolog Flexpen] 5 unit SQ TID 09/29/19 Insulin Glargine,Hum.rec.anlog [Basaglar Kwikpen U-100] 15 unit SQ TID 09/29/19 Lactulose 20 gm PO BID 09/29/19 Levothyroxine Sodium 150 mcg PO DAILY 09/29/19 Omeprazole 20 mg PO DAILY 09/29/19 Sertraline [Zoloft*] 50 mg PO DAILY 09/29/19 Spironolactone [Aldactone*] 25 mg PO DAILY 09/29/19 Torsemide [Demadex*] 20 mg PO DAILY 09/29/19 Bumetanide 1 tab PO TID 12/21/19 Midodrine HCl 1 tab PO TID 12/21/19 - Past Medical/Surgical History Diabetic: Yes -: IDDM -: UTI -: HTN -: Hypothyroidism -: Anemia, GI bleed, Colitis -: WYNN Liver Nonalcoholic Steatohepatitis -: Anxiety -: DEPRESSION -: SLEEP APNEA, CPAP -: obesity, Acities -: Chronic Kidney disease -: cellulitis -: (2X) -: TONSILLECTOMY -: PARACENTHESIS - Family History Father -: Heart disease, Hypertension, Diabetes Sister -: Cancer - Social History Alcohol use: No CD- Drugs: No Caffeine use: Yes Review of Systems Unremarkable Physical Examination - Vital Signs Blood Pressure: 110/72 Pulse Ox (%): 91 - Physical Exam General: Oriented x3, Mild distress, Obese HEENT: Atraumatic, Normocephalic, PERRLA Neck: No Thyromegaly, JVD distended Respiratory: Normal air movement, Dull, Crackles/rales Cardiovascular: Regular rate/rhythm, Normal S1 S2, Abnormal S3, Edema (2+ LE b/ l ) Gastrointestinal: Normal bowel sounds, Soft and benign, No tenderness, Distended , Ascites Musculoskeletal: No clubbing, Swelling Integumentary: No rashes, No breakdown Neurological: Normal speech, Normal strength at 5/5 x4 extr, Cranial nerves 3- 12 intact - Studies Laboratory Data (last 24 hrs) 01/05/20 04:20: WBC 6.8, Hgb 9.9 L, Hct 30.5 L, Plt Count 179 01/05/20 04:20: Sodium 134 L, Potassium 3.4 L, BUN 17, Creatinine 1.57 H, Glucose 275 H, Total Bilirubin 1.3 H, AST 69 H, ALT 32, Alkaline Phosphatase 113 , Lipase 644 H Imagings Data: CXR -small b/l pleural effusions Assessment and Plan - Problems (Diagnosis) (1) Pleural effusion Current Visit: Yes Status: Acute (2) HEMALATHA (acute kidney injury) Current Visit: No Status: Acute (3) Ascites Onset Date: 04/26/17 Current Visit: No Status: Acute Qualifiers: Ascites type: other type Qualified Code(s): R18.8 - Other ascites (4) DM type 2 (diabetes mellitus, type 2) Onset Date: 04/26/17 Current Visit: No Status: Chronic Qualifiers: Diabetes mellitus residential insulin use: with residential use Diabetes mellitus complication status: with hyperglycemia Qualified Code(s): E11.65 - Type 2 diabetes mellitus with hyperglycemia; Z79.4 - residential (current) use of insulin - Plan # Pleural Effusions -due to liver cirrhosis with severe hypoalbuminemia -start diuretics again lasix IV q12 - if low BP,add midodrine -follow with ascities tap -consult pulmonary to be on bord # Recurrent ascities- parecentssi today # HTN -with intermittent low BP , can restart midodrine if low # ARF on CKD - follow renal team , cr near baseline -keep MAP > 70 # dvt PROP- SC HEPARIN Discharge Plan: Home Plan to discharge in: 48 Hours - Advance Directives Does patient have a Living Will: Yes Does patient have a Durable POA for Healthcare: No Physician Review: Patient Assessed, Agree with Above Assessment and Plan Time Spent Managing Pts Care (In Minutes): 60
[2020-01-05] MEDS: INSULIN -REGULAR HUMAN 50 UNIT/0.5 ML ML SQ SCH ×4 (07:30→20:41)
[2020-01-05] MEDS ORDERED: FUROSEMIDE 40 MG/4 ML VIAL IV SCH (09:00)
[2020-01-05] MEDS ORDERED: HEPARIN 5000 UNIT/ML 1 ML VIAL SQ SCH (09:00)
[2020-01-05] MEDS: FAMOTIDINE 20 MG TAB PO SCH ×2 (09:53→20:41)
[2020-01-05] MEDS ORDERED: INFLUENZA VACCINE (for 3y+) 0.5 ML DOSE IMVAC ONE (11:00)
--- NOTE | 2020-01-05 12:48 | RAD REPORT ---
EXAM DESCRIPTION: RAD - Chest Single View - 01/05/2020 5:04 am CLINICAL HISTORY: Dyspnea, cirrhosis COMPARISON: None. TECHNIQUE: AP Chest. FINDINGS: Lung volumes are low. Heart is enlarged. Mild aortic atherosclerosis. There is pulmonary v ascular congestion. There is right lower lobe atelectasis/consolidation with a small to moderate righ t pleural effusion. Unremarkable soft tissues and bones. IMPRESSION: 1. Vascular congestion, right lower lobe consolidation/atelectasis. [id number] ri ght pleural effusion. Electronically signed by: July Yi DO 01/05/2020 4:57 AM METALLURGICAL OR MATERIALS TECHNICIAN Due to temporary technical issues with the PACS/Fluency reporting system, reports are being signed by the in house radiologist as a courtesy to ensure prompt reporting. The interpreting radiologist is f ully responsible for the content of the report.
[2020-01-05] MEDS ORDERED: FUROSEMIDE 40 MG/4 ML VIAL IV ONE (13:00)
[2020-01-05] MEDS: BUMETANIDE 1 MG/4 ML VIAL IV SCH ×2 (13:06→20:42)
[2020-01-05] MEDS ORDERED: HOME MED 1 EA UNK (Midodrine Hcl [Midodrine Hcl] 2.5 MG) PO SCH (14:00)
[2020-01-05] MEDS: MIDODRINE HCL 5 MG TABLET PO SCH ×2 (15:56→20:40)
[2020-01-05 15:59] LABS: UR CREAT < 13.0 mg/dL (20-320)
[2020-01-05 16:00] LABS: UR PROTEIN < 5 mg/dL (<11.9); Urine Protein/Creatinine Ratio ND ratio (<0.15)
--- NOTE | 2020-01-05 16:08 | CON ---
Date of Consultation: 01/05/2020 Reason For Consultation: Elevated BUN and creatinine, anasarca. History Of Present Illness: This is a pleasant 60-year-old female, well known to me from the office with significant past medical history of diabetes, cirrhosis secondary to WYNN, hypothyroidism, hypertension, depression, obesity. Patient came to the hospital complaining of increased abdominal swelling, anasarca, shortness of breath. Patient, according to her, she missed taking her diuresis and apparently she has been dining outside. Upon presentation to the hospital, patient found to be over volume hypoxemic with elevation in BUN and creatinine. For that reason, we have been consulted. Patient denied taking any nonsteroidal, no IV contrast. Past Medical History: 1. Cirrhosis, secondary to WYNN. 2. Diabetes. 3. Chronic kidney disease, baseline creatinine back in October was 2.5, and earlier it was, in the same month 1.7 with GFR between 30 and 19. Allergies: NO KNOWN DRUG ALLERGIES. Home Medications: Gabapentin, insulin, lactulose, levothyroxine, serotonin, Aldactone, torsemide, Bumex, midodrine. Past Surgical History: , tonsillectomy, paracentesis. Family History: Positive for hypertension. Social History: Denies smoking, denies drinking, denies drugs abuse. Review of Systems: Head And Neck: No red eye. No ear pain. GI: Has increased abdominal girth. : No polyuria, no dysuria, no hematuria. Director Index: No vaginal discharge. Respiratory: Shortness of breath. Cardiovascular: Has orthopnea. Has leg swelling. Endocrine: No polydipsia. Skin: No rash. Neuro: Has neuropathy. Musculoskeletal: Generalized fatigue. Physical Examination: Vital Signs: Blood pressure of 105/58, pulse of 57, afebrile. Patient was started on diuresis. Chest: Crackles bilateral, decreased entry on the right base. Heart: S1, S2. Systolic murmur. Abdomen: Ascites. Extremities: +2 edema. Neuro: Alert and oriented. Nonfocal. Laboratory Data: Sodium 134, potassium 3.4, bicarb 39, BUN 17, creatinine 1.5, calcium 8.7, GFR of 33. Albumin of 2.1. PTH of 46. WBC 6.8, H and H 9.9/30.5 , platelets 179. Current Medications: In the hospital include; albuterol, heparin, hydralazine, Lasix 40 b.i.d., Pepcid, morphine. Assessment And Plan: 1. 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 Given the hypoalbuminemia, I can resume Bumex as IV. We will give extra dose of Lasix today and we will follow up. 2. Hypokalemia and hypomagnesemia. We will supplement. We will resume aldacton 3. Ascites, as by primary. 4. Anasarca secondary to liver failure, possible secondary to hypothyroidism. I can go ahead and send for TSH, protein, creatinine. 5. Vitamin D deficiency. We will supplement. 6. Diabetes, as by primary. 7. Cirrhosis, as by primary. 8. Secondary hyperparathyroidism with normal calcium currently. I do not see the need for any supplement. Thank you Dr. Woods for allowing us to participate in the care of your patient thank. LISSETTE Voice ID: [id number] Report ID: [id number] RYLEY
[2020-01-05] MEDS ORDERED: GLUCAGON 1 MG/VIAL IM PRN (17:17)
[2020-01-05] MEDS ORDERED: D50W 25 GM/50 ML SYRINGE IV PRN (17:17)
[2020-01-05] MEDS: INSULIN -REGULAR HUMAN 50 UNIT/0.5 ML ML IV ONE ×2 (17:33→18:45)
[2020-01-05] MEDS: LACTULOSE 20 GM/30 ML UCUP PO SCH (20:39)
[2020-01-05] MEDS: ATORVASTATIN 10 MG TAB PO SCH (20:40)
[2020-01-05] MEDS: INSULIN GLARGINE 100 UNITS/ML SQ SCH (20:41)
[2020-01-05] MEDS ORDERED: INSULIN GLARGINE HUM REC ANLOG 15 UNIT SQ SCH (21:00)
[2020-01-05] MEDS ORDERED: HOME MED 1 EA UNK (Simvastatin [Simvastatin] 20 MG) PO SCH (21:00)
--- NOTE | 2020-01-05 21:31 | PN ---
Date of Progress Note: 01/05/2020 Subjective: Patient seen and examined. Chart reviewed and case discussed with RN. Patient unable t o have paracentesis done today as she ate this morning. Does complain of some shortness of breath. Medications: Reviewed. Physical Examination: Vital Signs: Temperature 97.5, heart rate 75, blood pressure 108/56, respirations 17, O2 97% on 3 L via nasal cannula. General: Awake, alert, oriented x3. Some mild distress, ill-appearing female. CV: S1, S2. Regular rate and rhythm. Peripheral pulses present. Respiratory: Diminished breath sounds. Crackles heard. Extremities: No clubbing or cyanosis. Patient has peripheral edema. Neurologic: Nonfocal. Laboratory Data: Sodium 134, potassium 3.4, chloride 93, CO2 39, BUN 17, creatinine 1.57, glucose 38 8. WBC 6.8, H and H 9.9 and 30.5, platelets 179. Blood cultures pending. Assessment: 60-year-old female with; 1.Recurrent ascites. Consult GI. Plan for paracentesis in a.m. I do not suspect any SBP. Will be therapeutic paracentesis nondiagnostic. Patient is noncompliant with her medications, followup, and fluid restriction. Patient has been counseled. 2.Acute kidney injury. Appreciate Nephrology input. Continue to monitor. 3.Bilateral pleural effusion, small. No need for thoracentesis. Will likely improve with diuretics . 4.Diabetes mellitus type 2 with long-term use of insulin with hyperglycemia. We will continue slidi ng scale insulin, resume home dose. 5.Morbid obesity, body mass index of 44. 6.Acute hypotension. Patient is on midodrine. We will hold blood pressure medications for now. Ho wever, patient is on multiple diuretics. 7.Anemia, microcytic hypochromic. 8.Nonalcoholic fatty liver disease. 9.Generalized anxiety and major depressive disorder. 10.Sleep apnea. SA/MODL Voice ID: [id number] Report ID: [id number]
[2020-01-06] MEDS: BUMETANIDE 1 MG/4 ML VIAL IV SCH ×3 (04:00→21:46)
[2020-01-06 04:20] LABS: Absolute Lymphocytes (CBC) 1.8 K/uL (0.7-4.9); Basophils % 1.4 % (0-1.3); Hematocrit 30.1 % (36.0-45.0); Lymphocytes % 24.7 % (15.3-44.8); MPV 7.6 fL (7.6-11.3); RBC Red Blood Cell Count 3.82 M/uL (3.86-4.86)
[2020-01-06 05:19] LABS: Albumin 1.8 g/dL (3.4-5.0); Bilirubin Total 1.1 mg/dL (0.2-1.0); Phosphorus 2.7 mg/dL (2.5-4.9); Potassium 3.1 mmol/L (3.5-5.1); Protein, Total 5.8 g/dL (6.4-8.2); Troponin I 0.04 ng/mL (0.0-0.045)
[2020-01-06] MEDS ORDERED: LEVOTHYROXINE SOD 0.1 MG TAB PO SCH (06:30)
[2020-01-06] MEDS: INSULIN -REGULAR HUMAN 50 UNIT/0.5 ML ML SQ SCH ×4 (07:30→21:45)
--- NOTE | 2020-01-06 08:55 | P.CNS ---
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 in [place] is on home oxygen is not taking any bronchodilators Allergies No Known Allergies Allergy (Verified 12/21/19 08:27) Home Medications: Bumetanide [Bumex*] 1.5 mg PO BID 01/05/20 Gabapentin [Neurontin*] 200 mg PO DAILY 01/05/20 Insulin Aspart [Novolog Flexpen] 5 units SQ TID 01/05/20 Insulin Glargine,Hum.rec.anlog [Basaglar Kwikpen U-100] 15 units SQ BID Lactulose [Cephulac*] 30 l PO BID 01/05/20 Levothyroxine Sodium 200 mcg PO DAILY 01/05/20 Midodrine HCl 2.5 mg PO TID 01/05/20 Omeprazole 20 mg PO DAILY 01/05/20 Sertraline [Zoloft*] 50 mg PO DAILY 01/05/20 Simvastatin 20 mg PO BEDTIME 01/05/20 Spironolactone [Aldactone*] 25 mg PO DAILY 01/05/20 Torsemide [Demadex*] 20 mg PO DAILY 01/05/20 - Past Medical/Surgical History Diabetic: Yes -: IDDM -: UTI -: HTN -: Hypothyroidism -: Anemia, GI bleed, Colitis -: WYNN Liver Nonalcoholic Steatohepatitis -: Anxiety -: DEPRESSION -: SLEEP APNEA, CPAP -: obesity, Ascites -: Chronic Kidney disease -: Cellulitis -: (2X) -: TONSILLECTOMY -: PARACENTESIS - Family History Father Medical History: Heart disease, Hypertension, Diabetes Sister Medical History: Cancer - Social History Smoking Status: Never smoker Alcohol use: No CD- Drugs: No Caffeine use: Yes Place of Residence: Home Review of Systems 10-point ROS is otherwise unremarkable General: Weakness Respiratory: Shortness of Breath Physical Examination Temp Pulse Resp BP Pulse Ox 96 F L 66 18 89/51 L 100 01/06/20 08:00 01/06/20 08:00 01/06/20 08:00 01/06/20 08:00 01/06/20 08:00 General: Alert, In no apparent distress, Oriented x3 HEENT: Atraumatic Neck: Supple Respiratory: Clear to auscultation bilaterally, Diminished Cardiovascular: Normal S1 S2, Edema Gastrointestinal: Normal bowel sounds, Soft and benign - Problems (1) Shortness of breath Current Visit: Yes Status: Acute Plan: Patient is 60 years of age admitted with acute on chronic dyspnea she is on home oxygen therapy very poor historian the verses the of the liver due to fatty chest x-ray is abnormal she probably has a right-sided pleural effusion has chronically elevated right hemidiaphragm patient has a mild microcytic anemia of ordered a CT of the chest without contrast bilateral decubitus patient has home O2 as never smoked last echocardiogram showed normal left ventricular function moderate pulmonary hypertension
[2020-01-06] MEDS: INSULIN GLARGINE 100 UNITS/ML SQ SCH ×2 (09:00→21:45)
[2020-01-06] MEDS ORDERED: HOME MED 1 EA UNK (Levothyroxine Sodium [Levothyroxine Sodium] 200 MCG) PO SCH (09:00)
[2020-01-06] MEDS ORDERED: SPIRONOLACTONE 25 MG TABLET PO SCH (09:00)
--- NOTE | 2020-01-06 09:46 | RAD REPORT ---
EXAM DESCRIPTION: US - Paracentesis Proc Guidance - 01/06/2020 9:33 am CLINICAL HISTORY: recurrent ascites Ascites COMPARISON: Paracentesis Proc Guidance dated 12/21/2019; Chest Single View dated 01/05/2020 FINDINGS: Informed consent was obtained and time-out was performed. Patient's abdomen was prepped and draped in the usual sterile fashion. 1% lidocaine was used for loca l anesthetic purposes. A small skin incision was made. A paracentesis catheter was guided into the peroneal cavity under son ographic guidance. A small amount of fluid was obtained which appeared blood-tinged. This blood-tinged fluid was sent to the lab. It was decided due to the bloody appearance of the fluid to defer further larger volume par acentesis at this time. The patient tolerated the procedure well. Findings were discussed with Dr. Richardson at 9:30 a.m. 01/06/2020 IMPRESSION: Paracentesis procedure yielded blood tinged fluid. A small volume of fluid was obtained and sent for lab studies.
--- NOTE | 2020-01-06 10:37 | RAD REPORT ---
EXAM DESCRIPTION: CT - Chest Abd Pelvis Wo Con - 01/06/2020 10:18 am CLINICAL HISTORY: Chest and abdominal pain COMPARISON: January 05, 2020 x-ray TECHNIQUE: Computed axial tomography of the chest, abdomen and pelvis was obtained. Oral contrast wa s given. IV contrast was not requested. All CT scans are performed using dose optimization technique as appropriate and may include automated exposure control or mA/KV adjustment according to patient size. FINDINGS: The evaluation of mediastinum, tim, vessels and solid organs is limited secondary to the lack of IV contrast administration Small to moderate right pleural effusion with right basilar atelectasis. The left lung is clear No pericardial effusion No mediastinal or hilar lymphadenopathy TIPS procedure is been performed. A cirrhotic liver. Spleen is upper limits normal size. The pancreas, adrenals and kidneys grossly normal No evidence of diverticulitis. Moderate amount ascites within the abdomen. Large amount of ascites within the pelvis. Diffuse edema within subcutaneous tissues. 4 cm lipoma within the right lateral abdominal wall muscul ature IMPRESSION: Small to moderate right pleural effusion Cirrhosis with moderate to large amount of ascites
[2020-01-06 11:00] LABS: Body Fluid WBC 176 /mm^3
--- NOTE | 2020-01-06 11:27 | RAD REPORT ---
EXAM DESCRIPTION: RAD - Chest Lateral Decubitus - 01/06/2020 10:26 am CLINICAL HISTORY: Abnormal chest x-ray Pleural effusion COMPARISON: Chest Single View dated 01/05/2020 FINDINGS: Moderate right pleural effusion is seen on left side up decubitus view. Mild layering of t he fluid is seen with a maximum depth of 23 mm. No significant left-sided effusion.
[2020-01-06] MEDS: LACTULOSE 20 GM/30 ML UCUP PO SCH ×2 (12:12→21:44)
[2020-01-06] MEDS: VITAMIN D 1000 UNIT TAB PO SCH (12:12)
[2020-01-06] MEDS: MIDODRINE HCL 5 MG TABLET PO SCH ×3 (12:12→21:44)
[2020-01-06] MEDS: GABAPENTIN 100 MG CAP PO SCH (12:13)
[2020-01-06] MEDS: FAMOTIDINE 20 MG TAB PO SCH ×2 (12:13→21:45)
[2020-01-06] MEDS: POTASSIUM 25 MEQ EFFERV TAB PO SCH (12:13)
[2020-01-06] MEDS: SERTRALINE HCL 50 MG TAB PO SCH (12:13)
[2020-01-06] MEDS: ENSURE HIGH PROTEIN 237 ML CAN PO SCH (12:14)
[2020-01-06 12:20] LABS: Appearance SLT. TURBID (CLEAR); Body Fluid Source PERITONEAL; Color of fluid Pink (COLORLESS)
[2020-01-06 15:20] LABS: Protime INR 1.1
[2020-01-06 16:36] LABS: Arterial Blood Carboxyhemoglob 1.2 % (0-1.5); Blood Gas Oxyhemoglobin 71.1 % (94-97); Blood O2 Saturation 72.5 % (92-98.5)
[2020-01-06] MEDS: HYDROCORTISONE SUC 100 MG INJ IV SCH (17:29)
[2020-01-06] MEDS ORDERED: CEFTRIAXONE/SWI 2gm 2 GM/20 ML SYR IVP SCH (18:00)
--- NOTE | 2020-01-06 20:24 | PN ---
Date of Progress Note: 01/06/2020 Subjective: Patient is seen and examined. Chart reviewed and case discussed with RN and Dr. Rausch and Dr. Salvador. Patient had went down for paracentesis today; however, she was unable to have the procedure completed due to bloody fluid coming from the tube. Therefore, the procedure was canceled. Patient overall has been diuresing well. Medications: List reviewed. Physical Examination: Vital Signs: Temperature 96, heart rate 66, blood pressure 89/51, respirations 18, O2 of 100% on 4 L via nasal cannula. General: Awake, alert, and oriented x3. Ill-appearing elderly female in some mild respiratory distress, morbidly obese. CV: S1, S2. Regular rate and rhythm. Peripheral pulses weak. Respiratory: Diminished breath sounds, some crackles heard. No wheezing or stridor. Gastrointestinal: Abdomen is distended. Moderate ascites is present. No rebound or guarding. Positive bowel sounds. Extremities: No clubbing or cyanosis. Patient has peripheral edema up to the shins bilaterally. Neurologic: Nonfocal. Laboratory Data: Sodium 137, potassium 3.1, chloride 94, CO2 of 39, BUN 19, creatinine 1.59, glucose 192, calcium 8.6, phosphorus 2.7, AST 69, ALT 36, alkaline phosphatase 102, albumin 1.8. TSH is 138, free T4 0.26. INR 1.10. WBC 7.2, H and H 9.3 and 30.1, platelets 185, neutrophils 62%. Peritoneal fluid shows pink color, turbid, wbc's 176, rbc's 29,371, 14 neutrophils, 52 lymphocytes, 34 mononuclear cells. Peritoneal gram stain and culture are pending. Blood cultures show no growth to date. Imaging Studies: CT of chest, abdomen, pelvis shows [id number] right pleural effusion, cirrhosis with [id number] amount of ascites, diffuse edema within subcutaneous tissues, 4 cm lipoma within the right lateral abdominal wall musculature. Assessment: 1. Recurrent ascites. Patient was unable to tolerate paracentesis due to blood-tinged fluid coming out. Patient's fluid analysis did show some wbc's, largely rbc's, but did have neutrophils. We will start on prophylactic IV antibiotics. Patient is diuresing well. Does have a pleural effusion. GI is on board. 2. Hepatorenal syndrome Appreciate Nephrology input. Creatinine is slightly improved. We will continue to monitor. 3. Bilateral pleural effusions, diuresing well. No need for thoracentesis at this time. Appreciate Dr. Manning's input. CT reviewed. 4. Diabetes mellitus type 2 with long-term use of insulin with hyperglycemia. Blood glucose levels in the 400s yesterday. Adjusted home dose and sliding scale insulin to aggressive. We will try to keep blood glucose levels around 140s to 200. 5. Acute hypotension. Continue midodrine. We will need to hold spironolactone for today. 6. Hypokalemia. We will replace and monitor. 7. Hypothyroidism. TSH is 138. Patient states she has been noncompliant with her oral medications. We will switch to IV levothyroxine and recheck TSH in 48 hours. Patient was counseled regarding compliance. 8. Nonalcoholic fatty liver disease. 9. Microcytic hypochromic anemia. We will continue to monitor H and H. 10. Generalized anxiety. 11. Major depressive disorder, stable. 12. Sleep apnea, on BiPAP at night. 13. Deep venous thrombosis prophylaxis. We will discontinue heparin due to bleed. Use SCDs. Plan: The patient needs further treatment. Start on IV antibiotics for possible SBP. Monitor for signs of hepatorenal syndrome. Continue IV levothyroxine, not stable for discharge home. /MORA Voice ID: [id number] Report ID: [id number] RYLEY
--- NOTE | 2020-01-06 20:40 | PN ---
History: Patient was admitted with anasarca, ascites, shortness of breath. Yesterday, we started th e patient on aggressive diuresis. Patient had good urine output. Today, plan for paracentesis. Physical Examination: Vital Signs: Blood pressure 115/52, pulse of 70, has urine output of 2100. CHEST: Decreased air entry bilateral base. Heart: S1, S2. Systolic murmur. Abdomen: Ascites. Extremities: +2 edema. Laboratory Data: WBC 7.2, H and H 9.3/30.1, platelet 185. Sodium 137, potassium 3.1, bicarb 39, BUN 19, creatinine 1.5, calcium 8.6, phosphor 2.7. TSH 138, PC ratio less than 0.02. Current Medications: The patient is on include, Bumex 1 mg b.i.d., Pepcid, hydralazine p.r.n., insul in, midodrine, spironolactone 25 daily. Assessment And Plan: 1.Anasarca secondary to hepatorenal with acute kidney on baseline. I am going to continue current d iuresis. We will monitor the patient closely. 2.Chronic kidney disease, stage III/IV secondary to hepatorenal on baseline with over volume. We wi ll continue diuresis. I going to increase her spironolactone. 3.Hypokalemia, we will supplement. 4.Anasarca secondary to hepatorenal/myxedema. Start the patient on hydrocortisone. We will start I V levothyroxine. 5.Myxedema as above. We will follow up with the primary. 6.Diabetes as by primary. 7.Bloody ascites. We will consider CT. We will follow up with the primary. Case discussed with Dr. Richardson, agreed on the plan. Discussed with the patient, verbalized understand ing. WILLIAM/MORA Voice ID: [id number] Report ID: [id number]
[2020-01-06] MEDS: ATORVASTATIN 10 MG TAB PO SCH (21:44)
[2020-01-06] MEDS: SPIRONOLACTONE 25 MG TABLET PO SCH (21:44)
[2020-01-07] MEDS: HYDROCORTISONE SUC 100 MG INJ IV SCH ×3 (01:25→21:37)
[2020-01-07] MEDS: BUMETANIDE 1 MG/4 ML VIAL IV SCH ×3 (04:00→21:36)
[2020-01-07 04:41] LABS: Albumin 1.7 g/dL (3.4-5.0); Phosphorus 3.4 mg/dL (2.5-4.9); Potassium 3.8 mmol/L (3.5-5.1); Troponin I 0.03 ng/mL (0.0-0.045)
[2020-01-07] MEDS: LEVOTHYROXINE SODIUM 100 MCG VIAL IV SCH (06:39)
[2020-01-07] MEDS: INSULIN GLARGINE 100 UNITS/ML SQ SCH ×2 (08:09→21:36)
[2020-01-07] MEDS: INSULIN -REGULAR HUMAN 50 UNIT/0.5 ML ML SQ SCH ×4 (08:10→21:35)
[2020-01-07] MEDS: LACTULOSE 20 GM/30 ML UCUP PO SCH ×2 (08:11→21:36)
[2020-01-07] MEDS: SERTRALINE HCL 50 MG TAB PO SCH (08:12)
[2020-01-07] MEDS: MIDODRINE HCL 5 MG TABLET PO SCH ×3 (08:12→21:37)
[2020-01-07] MEDS: POTASSIUM 25 MEQ EFFERV TAB PO SCH (08:12)
[2020-01-07] MEDS: SPIRONOLACTONE 25 MG TABLET PO SCH ×2 (08:12→21:37)
[2020-01-07] MEDS: VITAMIN D 1000 UNIT TAB PO SCH (08:13)
[2020-01-07] MEDS: FAMOTIDINE 20 MG TAB PO SCH ×2 (08:13→21:38)
[2020-01-07] MEDS: GABAPENTIN 100 MG CAP PO SCH (08:13)
[2020-01-07] MEDS: ENSURE HIGH PROTEIN 237 ML CAN PO SCH (08:19)
[2020-01-07 12:31] VITALS: BMI 43.6
[2020-01-07] MEDS ORDERED: INFLUENZA VACCINE (for 3y+) 0.5 ML DOSE IMVAC ONE (13:00)
[2020-01-07] MEDS: CEFTRIAXONE/SWI 2gm 2 GM/20 ML SYR IV SCH (13:14)
--- NOTE | 2020-01-07 16:44 | PN ---
Date of Progress Note: 01/07/2020 Subjective: Patient was admitted with anasarca. Paracentesis was tried yesterday, was hemorrhagic, for that reason, it was stopped. Patient been diuresing very well. Yesterday, was started on IV lev othyroxine. CT was done, did not show any abnormality except the ascites. Physical Examination: Vital Signs: Blood pressure 100/49, pulse of 86, afebrile. The patient had urine output of 1100, ne gative only 200, as weight garcia, the patient lost 8 pounds since admission. Chest: Faint crackles bilateral. Heart: S1, S2. Systolic murmur. Abdomen: Ascites. Extremities: +2 edema. Neurologic: Alert. No focal. Laboratory Data: WBC 7.2, H and H 9.3/30.1, platelets 185. Sodium 136, potassium 3.8, bicarb 40, BU N 18, creatinine stable at 1.5, calcium 8.3, phosphorus 3.4. Albumin 1.7. Corrected calcium is 10.3 . Current Medications: The patient is on Bumex 1 mg t.i.d., ceftriaxone, breathing treatment, midodrin e 2.5 t.i.d., hydralazine, spironolactone 25 b.i.d., atorvastatin, Zoloft, gabapentin, Pepcid, Zofran , insulin, KCl. Assessment And Plan: 1.Acute kidney injury on chronic kidney disease, starts being stable on baseline, still on the over volume side. I am going to go ahead and increase Bumex to 1 mg every 6 hours. We will continue spir onolactone and we will follow up the patient. We will place the patient on fluid restriction. 2.Hypertension, currently marginal low blood pressure. I can keep utilizing the blood pressure for more diuresis. Discontinue hydralazine and continue spironolactone 25 b.i.d. We will increase Bumex to 4 times a day. 3.Hypokalemia. Continue spironolactone. Continue potassium supplement. 4.Myxedema. Patient was started on levothyroxine IV. Continue hydrocortisone. I will decrease it to q.12 hours and we will monitor the patient. 5.Diabetes, as by primary. 6.Cirrhosis, ascites, as by primary. We will try to optimize the fluid status. MA/MODL Voice ID: [id number] Report ID: [id number]
--- NOTE | 2020-01-07 18:44 | PN ---
Date of Progress Note: 01/07/2020 Subjective: Patient seen and examined. Chart reviewed and case discussed with RN and Dr. Manning. Patient is doing better, still short of breath with requiring 5 L of oxygen via nasal cannula. Case discussed with Dr. Rausch. Patient's urinary output diminished yesterday to 1100. Overall improved. Physical Examination: Vital Signs: Temperature 96.9, heart rate 86, blood pressure 100/49, respirations 17, O2 96% on 5 L via nasal cannula. General: Awake, alert, oriented x3, elderly female, morbidly obese, in some mild respiratory distress. CV: S1, S2. Peripheral pulses present. Respiratory: Diminished breath sounds. No wheezing or stridor. Gastrointestinal: Abdomen is soft. Moderate ascites. Positive bowel sounds. Extremities: No clubbing or cyanosis. Patient has peripheral edema. Neuro: Nonfocal. Medications: List reviewed. Laboratory Data: Sodium 136, potassium 3.8, chloride 93, CO2 40, BUN 18, creatinine 1.58, glucose 233, calcium 8.3, phosphorus 3.4. Troponin 0.03. Albumin 1.7. Blood cultures and peritoneal cultures, no growth to date. Assessment: 60-year-old female with: 1. Recurrent ascites. Unable to do paracentesis. Patient is diuresing well. Patient's weight is down from 260 pounds to 254 pounds; however, still requiring supplemental oxygen at 5 L, usually is on 2 L. We will continue diuretics, likely discontinue in a.m. 2. Acute kidney injury, hepatorenal syndrome. Creatinine is improving. Continue with monitoring. Avoid NSAIDs. Appreciate Nephrology input. 3. Acute on chronic respiratory distress with hypoxia. We will try to wean off oxygen back to her baseline of 2 L. 4. Bilateral pleural effusions, improving with diuresis. No need for thoracentesis. Appreciate Dr. Manning's input. 5. Diabetes mellitus type 2 with long-term use of insulin and hyperglycemia. Sliding scale insulin adjusted. Blood glucose levels now in the 200s. We will continue to monitor. 6. Acute hypotension. Continue midodrine. 7. Hypokalemia. Replace and monitor. 8. Hypothyroidism. TSH is 138. We will repeat TSH level in a.m. For now, requires IV levothyroxine. 9. Nonalcoholic fatty liver disease. 10. Microcytic hypochromic anemia. We will continue to monitor H and H. 11. Generalized anxiety, stable. 12. Major depressive disorder, stable. 13. Sleep apnea. Continue BiPAP at night. 14. Deep venous thrombosis prophylaxis. Heparin was discontinued due to bleed during paracentesis. Continue SCDs. Plan: Monitor TSH. For now, continue IV levothyroxine. We will continue prophylactic antibiotics with ceftriaxone for possible SBP. Fluid cultures negative to date. Cytology did not show any malignant cells. Try to wean off oxygen, likely discontinue in the next 24-48 hours depending on clinical response. /MODL Voice ID: [id number] Report ID: [id number] RYLEY
[2020-01-07] MEDS: ATORVASTATIN 10 MG TAB PO SCH (21:37)
[2020-01-07] MEDS: WATER FOR INJ,STERILE 10 ML IV SCH (21:38)
[2020-01-08] MEDS: BUMETANIDE 1 MG/4 ML VIAL IV SCH ×3 (02:35→14:45)
[2020-01-08] MEDS: LEVOTHYROXINE SODIUM 100 MCG VIAL IV SCH (05:32)
[2020-01-08 06:25] LABS: Phosphorus 3.2 mg/dL (2.5-4.9); Potassium 3.7 mmol/L (3.5-5.1); Troponin I 0.02 ng/mL (0.0-0.045)
[2020-01-08 06:29] LABS: Thyroid Stimulating Hormone 95.2 uIU/mL (0.360-3.740)
[2020-01-08] MEDS ORDERED: GABAPENTIN 100 MG CAP PO SCH (09:00)
[2020-01-08] MEDS: INSULIN GLARGINE 100 UNITS/ML SQ SCH (09:22)
[2020-01-08] MEDS: INSULIN -REGULAR HUMAN 50 UNIT/0.5 ML ML SQ SCH ×3 (09:23→16:52)
[2020-01-08] MEDS: CEFTRIAXONE/SWI 2gm 2 GM/20 ML SYR IV SCH (09:23)
[2020-01-08] MEDS: LACTULOSE 20 GM/30 ML UCUP PO SCH (09:24)
[2020-01-08] MEDS: HYDROCORTISONE SUC 100 MG INJ IV SCH (09:25)
[2020-01-08] MEDS: VITAMIN D 1000 UNIT TAB PO SCH (09:25)
[2020-01-08] MEDS: WATER FOR INJ,STERILE 10 ML IV SCH (09:25)
[2020-01-08] MEDS: POTASSIUM 25 MEQ EFFERV TAB PO SCH (09:25)
[2020-01-08] MEDS: SPIRONOLACTONE 25 MG TABLET PO SCH (09:25)
[2020-01-08] MEDS: FAMOTIDINE 20 MG TAB PO SCH (09:26)
[2020-01-08] MEDS: SERTRALINE HCL 50 MG TAB PO SCH (09:26)
[2020-01-08] MEDS: MIDODRINE HCL 5 MG TABLET PO SCH ×2 (09:26→14:45)
[2020-01-08] MEDS: ENSURE HIGH PROTEIN 237 ML CAN PO SCH (09:30)
--- NOTE | 2020-01-08 11:09 | P.PN ---
Subjective Date of Service: 01/08/20 Chief Complaint: Shortness of breath and body sweling Subjective Pt with Hx of WYNN, hypothyrodism , COPD on Home Oxygen presneted with SOB and edema , symptoms , improved on lasix Today feels better , now back on her Home O2 requirement Cr slightly elevated TSH improving Rt leg edema >lt , will order doppler physical exam general: Awake and alert , NAD , obese Neck; Supple, No elevated JVD heart: RRR, normal S1,2 no murmur or rub Chest: diminished air entry b/l Abdomen: distended, soft, NT Extremities Rt leg edema +1 , Lt leg trace edema Assessment And Plan: HEMALATHA on CKD cr today slightly elevated cont diuretics renal dose meds WYNN had traumatic paracentecis can resume as an OP Hypothyrodism TSH improving on Synthroid and steroids DM as per primary Chronic resp failure with pleural effusion cont diuretics now down to her Home O2 requirement Physical Examination - Vital Signs Temperature: 96.8 F Blood Pressure: 125/61 Pulse: 76 Respirations: 19 Pulse Ox (%): 94 - Studies Microbiology Data (last 24 hrs): 01/06/20 09:25 Body Fluid - Peritoneal Fluid Gram Stain - Final Assessment And Plan Physician Review: Patient Assessed, Agree with Above Assessment and Plan
[2020-01-08 14:25] VITALS: O2SAT 97
--- NOTE | 2020-01-08 15:40 | RAD REPORT ---
EXAM DESCRIPTION: US - Extremity Venous Uni Ltd - 01/08/2020 3:33 pm CLINICAL HISTORY: R leg swelling Leg swelling and edema. COMPARISON: Extrem Venous W Compress [facility] dated 03/14/2017 FINDINGS: Right lower extremity venous system was interrogated with Doppler technique. Normal flow, compressibility and augmentation was noted. There is no DVT present. IMPRESSION: No evidence of right lower extremity deep venous thrombosis.
[2020-01-08 17:12] VITALS: BP 135/63; TEMP 96.8
--- NOTE | 2020-01-08 23:57 | DS ---
Date of Discharge: 01/08/2020 Consultants: 1. Dr. Manning with Pulmonology. 2. Dr. Vazquez and Dr. Rausch with Nephrology. 3. Dr. Andrews with GI. Admitting Diagnoses: 1. Recurrent ascites with anasarca. 2. Pleural effusion. 3. Acute kidney injury. 4. Diabetes mellitus type 2. Discharge Diagnoses: 1. Recurrent ascites. 2. Anasarca. 3. Hepatorenal syndrome. 4. Acute on chronic respiratory distress with hypoxia. 5. Bilateral pleural effusions. 6. Diabetes mellitus type 2 with long-term use of insulin and hyperglycemia. 7. Acute kidney injury. 8. Hypokalemia. 9. Hypothyroidism, uncontrolled. 10. Nonalcoholic fatty liver disease. 11. Microcytic hypochromic anemia. 12. Generalized anxiety disorder. 13. Major depressive disorder, single episode. 14. Obstructive sleep apnea on BiPAP at night. 15. Morbid obesity. Hospital Course: Patient is a 60-year-old female with past medical history of diabetes, hypertension with liver cirrhosis due to WYNN with recurrent ascites on a biweekly basis, last paracentesis 3 weeks ago, comes in with increasing shortness of breath and worsening swelling. Patient was found to have anasarca. She was started on diuretics. Paracentesis was attempted on 2019; however, had to be discontinued as there was tony bloody return from the paracentesis fluid, therefore was stopped. Cytology studies and cultures were sent off, which did not show any malignant cells and cultures were negative as well. She was on prophylactic antibiotics. In the meanwhile, the patient was seen by Nephrology, Dr. Vazquez and Dr. Rausch and she was diuresed heavily. Patient had good urinary output, had negative fluid balance, decrease in her weight and swelling. The patient's blood cultures also remained negative. She has some swelling of her right lower extremity and this was investigated by a Doppler sono study, which was negative for DVT. Patient overall did well. She was initially on 5 L of oxygen due to the anasarca and bilateral pleural effusions. However, her condition improved with diuretics. She was able to wean back down to 2 L, which is her usual oxygen use at home. Patient was seen by Dr. Manning. CT scan of the chest was done. He did not recommend thoracentesis at this time. CT showed [id number] right pleural effusion and her symptoms were secondary to the ascites. Patient was also seen by GI, Dr. Andrews. Her diuretics were adjusted. Patient is doing better. She was then able to be off the BiPAP only using it at night for sleep apnea and was able to ambulate without difficulty. She was then cleared for discharge and sent home in a stable condition. Activity as tolerated. Medications as per medication reconciliation list. It should be noted that the patient's TSH was severely elevated at 138. She had not been taking her levothyroxine. She was counseled and now she will be switched to oral Synthroid from IV. Followup: Follow up with primary care physician in 2-3 days. Follow up with GI , Dr. Andrews in 2 weeks. Follow up with skid strapper, Dr. Manning in 2 weeks. Follow up with grain drier, Dr. Rausch in 2 weeks. Return to ER for worsening condition. Diet: Low-sodium, free fluid restriction. Activity: Fall precautions. Physical Examination: General: Awake, alert, and oriented x3. No acute distress. Elderly female, morbid obese. CV: S1, S2. Respiratory: Moving air well bilaterally. Abdomen: Soft, has [id number] ascites. Positive bowel sounds. Extremities: The patient has edema of the lower extremity, significantly improved from previous. Neurologic: Nonfocal. Total time spent discharging patient was 37 minutes. /MORA Voice ID: [id number] Report ID: [id number] RYLEY
== END 2020-01-08 18:05 | disposition home or self-care (01) | DRG 947 ==
LOC: ER 02:38 → ERHOLD 06:49 → 4TH 08:23 → OBSVTOIN 01-06 16:31
PROVIDERS: ADMIT Internal Medicine; ATTEND Internal Medicine
PROC: 0W9G3ZX Drainage of Peritoneal Cavity, Percutaneous Approach, Diagnostic (ICD-10-PCS; principal; 2020-01-06)
DX: R18.8 Other ascites (principal); K76.7 Hepatorenal syndrome; E43 Unspecified severe protein-calorie malnutrition; J96.01 Acute respiratory failure with hypoxia; J90 Pleural effusion, not elsewhere classified; Z68.41 Body mass index [BMI] 40.0-44.9, adult; N18.4 Chronic kidney disease, stage 4 (severe); N17.9 Acute kidney failure, unspecified; E87.6 Hypokalemia; E03.9 Hypothyroidism, unspecified; D50.9 Iron deficiency anemia, unspecified; F41.1 Generalized anxiety disorder; F32.9 Major depressive disorder, single episode, unspecified; G47.33 Obstructive sleep apnea (adult) (pediatric); E66.01 Morbid (severe) obesity due to excess calories; I12.9 Hypertensive chronic kidney disease with stage 1 through stage 4 chronic kidney disease, or unspecified chronic kidney disease; E11.22 Type 2 diabetes mellitus with diabetic chronic kidney disease; K75.81 Nonalcoholic steatohepatitis (NASH); E11.65 Type 2 diabetes mellitus with hyperglycemia; K74.60 Unspecified cirrhosis of liver; Z79.4 Long term (current) use of insulin; Z23 Encounter for immunization
CPT/HCPCS: 36415; 49083; 71045; 71046; 71250; 74176; 80048; 80053; 80069; 80076; 82570; 82805; 82947; 83690; 83880; 84100; 84156; 84439; 84443; 84484; 85025; 85610; 87040; 87070; 88108; 88305; 89050; 90471; 93005; 93971; 94660; 94760; 96374; 97116; 97161; 97530; 99284; G0378; J0696; J1644; J1720; J1815; J1940; J2405; Q2035